=== PATIENT | female | born 1955 | race Caucasian/White ===

== ENCOUNTER 2018-06-13 20:19 | Inpatient (IN) | payer MEDICARE, MEDICAID, SELFPAY ==
[2018-06-13] VITALS (40 sets, daily range): BP systolic 128–165; BP diastolic 62–98; PULSE 89–109; RESP 4–38; TEMP 36.6–36.9; O2SAT 79–100
[2018-06-13] MEDS: Albuterol/Ipratropium 3 ML UPD VIAL 6 ML (20:25)
[2018-06-13] MEDS: methylPREDNISolone SUCC 125 MG VIAL (20:25)
--- NOTE | 2018-06-13 20:30 | DI.RAD_ITS ---
SYMPTOMS/DIAGNOSIS: SHORTNESS OF BREATH AP PORTABLE UPRIGHT CHEST: The lungs are free of gross infiltrate. No pleural effusion is seen. The heart is within normal limits in size. SUMMARY: No evidence of acute cardiopulmonary disease.
--- NOTE | 2018-06-13 20:33 | W.ED.GENAD ---
Discharge Plan Disposition Patient Disposition: [facility] INPATIENT Condition: Critical Discharge Details Chief Complaint: SOB Clinical Impression: Acute exacerbation of chronic obstructive pulmonary disease (COPD) Reason For Visit: COPD Admit Date/Time: 06/13/18 22:09 Admit Provider: Sunny Ferrer Attending Provider: Sunny Ferrer Primary Care Provider: Alphonso Murphy ED Provider: Devin Garland Discharge Data Discharge Date/Time-TO BE ENTERED AT DEPARTURE: 06/13/18 23:30 Medical Decision Making 20:30 --patient arrives in critical condition. Patient seen immediately on arrival. 61-year-old female with history of COPD here with respiratory distress. Hypoxic. Wheezing and decreased breath sounds bilaterally. ECG reviewed and interpreted by me: Sinus tachycardia 101 bpm, normal axis, no STEMI, significant artifact. Nondiagnostic. Plan is to continue DuoNeb treatment. Will initiate BiPAP. Respiratory therapy consulted. cxr to assess for PNA. 9:00 -- portable cxr reviewed and interpreted by me: no pneumothorax Patient reassessed and improved on bipap. RT at bedside administering continuous neb treatments with albuterol. 9:24 -- Labs reviewed. Normal trop and normal bnp. Patient reassessed and much improved - still requiring bipap. Nebs discontinued. Spoke with Dr. Ferrer who will admit to ICU. HPI General Mode of arrival: wheelchair. Date/Time Provider Initiated Documentation: 06/13/18 20:30. Information obtained by: patient and family. HPI Narrative: 63-year-old female with history of COPD, morbid obesity, ?pulmonary embolism (patient denies but is listed in problem list - she is not on anticoagulation), here with severe respiratory distress. History and review of systems Limited secondary to respiratory distress. Patient's boyfriend notes that exacerbation started early this morning and has worsened today despite neb treatments at home. Patient denies chest pain. Related Data Home Medications Medication Instructions Recorded Confirmed ascorbic acid (vitamin C) 1,000 mg PO DAILY 11/25/12 06/13/18 inhalational spacing device #1 inhaler 12/21/13 06/13/18 [Aerochamber Mini] Bipap 5 l IN DIRECTED 07/23/14 06/13/18 Oxygen 2 l INTRANASAL DIRECTED 12/24/14 06/13/18 aspirin 325 mg PO DAILY #0 tab-cap 06/22/15 06/13/18 guaifenesin [Mucinex] 1 - 2 tab PO Q12H PRN #30 tab-cap 06/26/15 06/13/18 clotrimazole 45 gm TOPICAL BID prn #45 gm 03/02/17 06/13/18 nystatin (bulk) 1 applic TOPICAL BID PRN #60 gm 03/02/17 06/13/18 albuterol sulfate [ProAir HFA] 1 - 2 puff INHALATION Q6H PRN #1 12/28/17 06/13/18 inhaler bupropion HCl (smoking deter) 150 mg PO QAM #30 tab-cap 12/28/17 06/13/18 citalopram [Celexa] 20 mg PO DAILY #30 tab-cap 12/28/17 06/13/18 fluticasone [Flonase Allergy 1 spray NS DAILY #1 canister 12/28/17 06/13/18 Relief] furosemide [Lasix] 80 mg PO QAM #180 tab-cap 12/28/17 06/13/18 gabapentin 2 cap PO BID #60 tab-cap 12/28/17 06/13/18 magnesium chloride [Mag 64] 64 mg PO DAILY #30 tab-cap 12/28/17 06/13/18 potassium chloride 2 tab-cap PO BID #180 tab-cap 12/28/17 06/13/18 silver sulfadiazine 1 applic TOPICAL BID PRN #60 gm 12/28/17 06/13/18 triamcinolone acetonide 1 appful TOPICAL BID PRN #30 gm 12/28/17 06/13/18 levofloxacin [Levaquin] 500 mg PO DAILY #3 tab 06/19/18 prednisone 40 mg PO BID #60 tab 06/19/18 ipratropium-albuterol 0.5 mg-3 3 ml IH QID #180 ml MDD 4 nebs 06/20/18 mg(2.5 mg base)/3 mL nebulization soln Previous Rx's Medication Instructions Recorded aspirin 325 mg PO DAILY #0 tab-cap 06/22/15 albuterol sulfate [ProAir HFA] 1 - 2 puff INHALATION Q6H PRN #1 12/28/17 inhaler bupropion HCl (smoking deter) 150 mg PO QAM #30 tab-cap 05/16/18 citalopram [Celexa] 20 mg PO DAILY #30 tab-cap 12/28/17 fluticasone [Flonase Allergy 1 spray NS DAILY #1 canister 12/28/17 Relief] furosemide [Lasix] 80 mg PO QAM #180 tab-cap 12/28/17 gabapentin 2 cap PO BID #60 tab-cap 12/28/17 magnesium chloride [Mag 64] 64 mg PO DAILY #30 tab-cap 12/28/17 potassium chloride 2 tab-cap PO BID #180 tab-cap 12/28/17 levofloxacin [Levaquin] 500 mg PO DAILY #3 tab 06/19/18 prednisone 40 mg PO BID #60 tab 06/19/18 ipratropium-albuterol 0.5 mg-3 3 ml IH QID #180 ml MDD 4 nebs 06/20/18 mg(2.5 mg base)/3 mL nebulization soln Allergies Allergy/AdvReac Type Severity Reaction Status Date / Time hydrocodone Allergy Severe ITCHING Unverified 06/13/18 20:36 morphine Allergy Mild PRURITIS Unverified 06/13/18 20:36 oxycodone Allergy Mild ITCHING Unverified 06/13/18 20:36 General Stated Complaint: SOB REUBEN: 1 Review of Systems Review of Systems ROS limited 2/2 acuity of condition and resp distress Constitutional Reports headache(s) ENT Reports headache(s) Cardiovascular Reports dyspnea Respiratory Reports dyspnea and Reports wheezing Musculoskeletal Denies numbness Neurologic Reports headache(s) and Denies numbness Allergic/Immunologic Reports wheezing PFSH Family History Mother Diabetes Personal history of malignant neoplasm Father Personal history of malignant neoplasm Grandfather No problems noted. Grandfather No problems noted. Grandmother No problems noted. Grandmother No problems noted. Medical History COPD (chronic obstructive pulmonary disease) (Chronic) Social History Smoking/Tobacco Use Status: Former Tobacco Use Surgical History Fasciotomy, Foot (~1996) Replacement of total knee joint Exam Const General: cooperative and in distress respiratory Orientation: alert and awake HENNV Head: normocephalic and atraumatic Mouth: moist mucous membranes Eyes Conjunctivae: normal conjunctivae Sclera: normal sclerae EOM: EOM intact bilaterally Neck Neck: trachea midline and supple Resp Auscultation: diminished lung sounds bilaterally, no rales, no rhonchi and wheezes Cardio Jugular venous pressure: no JVD Rate: tachycardic Rhythm: regular rhythm GI Palpation: soft, not firm, no guarding, no masses, not rigid and nontender Skin General skin exam: no rashes or lesions noted Neuro General: alert, awake, oriented x3 and tone normal Extrem General: no calf tenderness bilaterally and edema Psych Appearance: grossly normal Mental Status: mental status grossly normal Speech and Movement: speech and movement normal Course Vital Signs Temperature 36.6 C 06/13/18 20:23 Pulse 105 H 06/13/18 20:23 Respiratory Rate 38 H 06/13/18 20:23 Blood Pressure 165/78 H 06/13/18 20:23 Pulse Oximetry 83 L 06/13/18 20:23 Temperature 36.6 C 06/13/18 20:23 Pulse 105 H 06/13/18 20:23 Respiratory Rate 38 H 06/13/18 20:23 Blood Pressure 165/78 H 06/13/18 20:23 Pulse Oximetry 83 L 06/13/18 20:23 Oxygen Delivery Method Nasal Cannula 06/13/18 20:23 Oxygen Flow Rate 2 06/13/18 20:23 Comment 06/13/18 20:23 Critical Care Time Critical Care Time: Yes Total Critical Care Time: 40 Attestation: I spent greater than 40 min addressing this patient's immediate life threats.
[2018-06-13 20:41] LABS: BE (Venous) 6.5 mmol/L (-3-3); HCO3 (Venous) 32 mmol/L (22-28); O2 Sat (Venous) 50 % (70-80); TCO2 (Venous) 29 mmol/L (22-29); pCO2 (Venous) 58 mm/Hg (34-47); pH (Venous) 7.35 (7.32-7.43); pO2 (Venous) 26 mm/Hg (28-44)
[2018-06-13 20:43] LABS: Abs Immature Grans 0.01 k/cumm (0.0-0.09); Absolute Basophil Count 0.02 k/cumm (0.0-0.2); Absolute Eosinophil Count 0.29 k/cumm (0.0-0.7); Absolute Lymphocyte Count 2.09 k/cumm (1.2-3.4); Absolute Monocyte Count 0.94 k/cumm (0.11-0.7); Absolute Neutrophil Count 6.66 k/cumm (1.2-6.7); Basophils % 0.2; Eosinophils % 2.9; HCT 43.6 % (36.0-46.0); HGB 14.5 g/dL (12.0-15.5); Immature Grans % 0.1; Lymphocytes % 20.9; Mean Corp. HGB Concentration 33.3 g/dL (32.0-36.0); Mean Corpuscular Hemoglobin 29.2 pg (27.0-33.0); Mean Corpuscular Volume 87.7 fL (80-95); Mean Platelet Volume 10.8 fL (8.0-11.0); Monocytes % 9.4; Neutrophils % 66.5; Platelet Count 277 x1000/uL (130-400); RBC 4.97 m/cumm (4.00-5.20); RBC Distribution Width 14.3 % (11.7-14.6); White Blood Cell Count 10.01 k/cumm (4.4-10.8)
[2018-06-13] MEDS: Albuterol 2.5 MG/3 ML INH SOLN VIAL 5 MG ×3 (20:50→21:08)
[2018-06-13 21:01] LABS: ALT 29 U/L (12-78); AST 22 U/L (15-37); Alkaline Phosphatase 93 U/L (46-116); Anion Gap 5.7 mmol/L (3-11); BUN 13 mg/dL (7-18); Bilirubin, Total 1.2 mg/dL (0.2-1.0); CO2 33.3 mmol/L (21.0-32.0); Calcium 8.8 mg/dL (8.5-10.1); Chloride 101 mmol/L (98-107); Glucose 107 mg/dL (70-100); Potassium 3.6 mmol/L (3.5-5.1); Sodium 140 mmol/L (136-145); Total Protein 7.6 g/dL (6.4-8.2)
--- NOTE | 2018-06-13 21:01 | DI.VRAD_ITS ---
EXAM: XR Chest, 1 View EXAM DATE/TIME: 06/13/2018 8:33 PM CLINICAL HISTORY: 63 years old, female; Signs and symptoms; Other: Shortness of breath TECHNIQUE: XR of the chest, 1 view. COMPARISON: SC PORTABLE CHEST ONE VIEW 01/15/2017 9:23 PM FINDINGS: Lungs: Mild lung hypoinflation. Strandy densities in the lung bases appear similar to prior and likely represent mild scarring/atelectasis. No consolidation. Pleural space: Unremarkable. No pleural effusion. No pneumothorax. Heart/Mediastinum: Unremarkable. No cardiomegaly. Bones/joints: Chronic osseous changes. IMPRESSION: No acute cardiopulmonary findings. Dictated and Authenticated by: Robbie Martinez MD. Ordering:LYNN MASSEY MD
[2018-06-13 21:11] LABS: NT-proBNP 73 pg/mL
[2018-06-13 21:17] LABS: Troponin I < 0.02 ng/mL (0.00-0.06)
--- NOTE | 2018-06-13 21:59 | W.PM.HP.N ---
Date of service: 06/13/18 Time of Service: 22:00 Assessment and Plan (1) COPD (chronic obstructive pulmonary disease): Current visit: No Status: Acute COPD exacerbation. Will continue steroids, updrafts and BiPAP. Not clear whether there is an infectious come, certainly does not look like any pneumonia, but will add oral antibiotics as well. Will otherwise continue usual medications as is. I did review advanced directives with the patient and at this point she wishes to be full code. History of Present Illness Chief Complaint: Shortness of breath Narrative: Patient is a 63-year-old female with COPD and morbid obesity. She comes in with several weeks of cough and 1-2 days of increasing shortness of breath. In the emergency room she was in obvious respiratory distress she was given DuoNeb's, steroids and placed on BiPAP with substantial improvement. She is admitted for further evaluation and management. Past medical history COPD, on home BiPAP, obstructive sleep apnea, morbid obesity. Allergies: To hydrocodone, morphine and oxycodone. Medications as needed albuterol aspirin 325 daily, BiPAP, will Wellbutrin 150 daily, Celexa 20 daily, Flonase, Lasix 80 daily Neurontin unspecified dose Combivent as needed magnesium potassium unspecified dose. Rectal exam afebrile, blood pressure 153/73, pulse 103 respirations 20 O2 sat 97%. HEENT shows cushingoid facies. Neck supple lungs diffuse wheezing. Heart is distant but regular rate and rhythm. Abdomen soft nontender. Pelvic and rectal exams deferred per extremities without pedal edema. Neurological patient is alert and oriented and moves all 4 extremities equally. Laboratory: White count is 10.0 hematocrit 43 platelet 277. Sodium 140 potassium 3.6 chloride 101 bicarb 33 BUN 13 creatinine 0.7 venous blood gas shows pH 7.35 and CO2 58. Chest x-ray shows poor inspiration without film shows no acute changes Review of Systems Review of Systems All systems reviewed & are unremarkable except as noted in HPI and below PFSH Family History Mother Diabetes Personal history of malignant neoplasm Father Personal history of malignant neoplasm Grandfather No problems noted. Grandfather No problems noted. Grandmother No problems noted. Grandmother No problems noted. Medical History COPD (chronic obstructive pulmonary disease) (Chronic) Social History Smoking/Tobacco Use Status: Former Tobacco Use Surgical History Fasciotomy, Foot (~1996) Replacement of total knee joint Meds Home Medications Medication Instructions Recorded Confirmed Type ascorbic acid (vitamin C) 1,000 mg PO DAILY 11/25/12 06/13/18 History inhalational spacing device #1 inhaler 12/21/13 06/13/18 History [Aerochamber Mini] Bipap 5 l IN DIRECTED 07/23/14 06/13/18 History Oxygen 2 l INTRANASAL DIRECTED 12/24/14 06/13/18 History aspirin 325 mg PO DAILY #0 tab-cap 06/22/15 06/13/18 Rx guaifenesin [Mucinex] 1 - 2 tab PO Q12H PRN #30 tab-cap 06/26/15 06/13/18 History ipratropium-albuterol 1 amp INHALATION Q6H PRN #100 amp 12/01/16 06/13/18 History clotrimazole 45 gm TOPICAL BID prn #45 gm 03/02/17 06/13/18 History nystatin (bulk) 1 applic TOPICAL BID PRN #60 gm 03/02/17 06/13/18 History albuterol sulfate [Proair Hfa] 1 - 2 puff INHALATION Q6H PRN #1 12/28/17 06/13/18 Rx inhaler bupropion HCl (smoking deter) 150 mg PO QAM #30 tab-cap 12/28/17 06/13/18 Rx citalopram [Celexa] 20 mg PO DAILY #30 tab-cap 12/28/17 06/13/18 Rx fluticasone [Flonase Allergy 1 spray NS DAILY #1 canister 12/28/17 06/13/18 Rx Relief] furosemide [Lasix] 80 mg PO QAM #180 tab-cap 12/28/17 06/13/18 Rx gabapentin 2 cap PO BID #60 tab-cap 12/28/17 06/13/18 Rx magnesium chloride [Slow-Mag] 64 mg PO DAILY #30 tab-cap 12/28/17 06/13/18 Rx potassium chloride 2 tab-cap PO BID #180 tab-cap 12/28/17 06/13/18 Rx prednisone 40 mg PO DAILY #10 tab-cap 12/28/17 06/13/18 Rx silver sulfadiazine 1 applic TOPICAL BID PRN #60 gm 12/28/17 06/13/18 History triamcinolone acetonide 1 appful TOPICAL BID PRN #30 gm 12/28/17 06/13/18 History Allergies Allergy/AdvReac Type Severity Reaction Status Date / Time hydrocodone Allergy Severe ITCHING Unverified 06/13/18 20:36 morphine Allergy Mild PRURITIS Unverified 06/13/18 20:36 oxycodone Allergy Mild ITCHING Unverified 06/13/18 20:36 Exam Narrative Exam Narrative: per HPI Results Labs : 06/13/18 20:30 06/13/18 20:30 Laboratory Results - last 24 hr 06/13/18 06/13/18 06/13/18 20:30 20:30 20:30 WBC RBC Hgb Hct MCV MCH MCHC RDW Plt Count MPV Immature Gran % Neutrophils % Lymphocytes % Monocytes % Eosinophils % Basophils % Absolute Neutrophils Absolute Lymphocytes Absolute Monocytes Absolute Eosinophils Absolute Basophils VBG pH 7.35 VBG pCO2 58 H VBG pO2 26 L VBG HCO3 32 H VBG Total CO2 29 VBG O2 Saturation 50 L VBG Base Excess 6.5 H Sodium 140 Potassium 3.6 Chloride 101 Carbon Dioxide 33.3 H Anion Gap 5.7 BUN 13 Creatinine 0.70 Estimated GFR/1.73 m2 >= 60.00 Glucose 107 H Calcium 8.8 Total Bilirubin 1.2 H AST 22 ALT 29 Alkaline Phosphatase 93 Troponin I < 0.02 NT-Pro-B Natriuret Pep 73 Total Protein 7.6 Albumin 3.0 L 06/13/18 20:30 WBC 10.01 RBC 4.97 Hgb 14.5 Hct 43.6 MCV 87.7 MCH 29.2 MCHC 33.3 RDW 14.3 Plt Count 277 MPV 10.8 Immature Gran % 0.1 Neutrophils % 66.5 Lymphocytes % 20.9 Monocytes % 9.4 Eosinophils % 2.9 Basophils % 0.2 Absolute Neutrophils 6.66 Absolute Lymphocytes 2.09 Absolute Monocytes 0.94 H Absolute Eosinophils 0.29 Absolute Basophils 0.02 VBG pH VBG pCO2 VBG pO2 VBG HCO3 VBG Total CO2 VBG O2 Saturation VBG Base Excess Sodium Potassium Chloride Carbon Dioxide Anion Gap BUN Creatinine Estimated GFR/1.73 m2 Glucose Calcium Total Bilirubin AST ALT Alkaline Phosphatase Troponin I NT-Pro-B Natriuret Pep Total Protein Albumin Last Vital Signs Temp 36.6 C 06/13/18 20:23 Pulse 103 H 06/13/18 21:17 Resp 20 06/13/18 21:17 BP 151/73 H 06/13/18 20:31 Pulse Ox 97 06/13/18 21:17
[2018-06-14] VITALS (45 sets, daily range): BP systolic 107–142; BP diastolic 47–75; PULSE 75–99; RESP 8–26; TEMP 36.4–36.9; O2SAT 91–97
[2018-06-14] MEDS: Albuterol/Ipratropium 3 ML UPD VIAL UPD ×6 (00:48→22:28)
[2018-06-14] MEDS: methylPREDNISolone SUCC 40 MG VIAL IVP ×3 (04:54→19:13)
[2018-06-14] MEDS: Normal Saline Flush 10 ML SYR (05:20)
--- NOTE | 2018-06-14 08:04 | PDOC.CMIN ---
- If Service Date Differs Date of service: 06/14/18 Time of Service: 08:04 Care Management Initial Assess REASON FOR HOSPITALIZATION:: COPD. PAST MEDICAL HISTORY/PAST SURGICAL HISTORY:: COPD, depressive disorder, insomnia with sleep apnea, chronic headaches, recurrent UTI, bronchospasm, obesity, hypokalemia, PE, right ventricular dysfunction. Surgical hx: fasciotomy left foot, replacement bilateral knee joints. PREVIOUS FUNCTIONAL STATUS/SOCIAL/FAMILY SUPPORTS:: Radha resides in [facility] with her disabled son, Lucas, and off and on with her boyfriend of 30 years, Galo. 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 Radha has home O2 and a BiPAP through [employer] and has an electric wheelchair. She is independent with her ADLs and utilizes [facility] for transportation needs. CURRENT FUNCTIONAL STATUS:: Radha is sitting on her bed in the ICU when CM visits this afternoon. CM has attempted to visit three times over the morning and Radha was asleep each time. She is engaged in conversation, is talkative, and makes good eye contact. RT Lena worked with Radha this morning regarding her need for a new BiPAP. Per [employer], Radha can not get a new one as she has not seen a supervisor show operations in 5 years. Radha has an appointment scheduled for 07/20/18 at 9:15am at the [facility] with Myrna Coronado NP. Patient is aware. Radha reports that she uses an electric wheelchair at home and that it is broken. According to patient, Reji from [employer]' is helping her obtain a new motor. CM discussed resources and support in the community and Radha stated that she did not want referrals sent on her behalf. Radha continues to receive IV steroids and oral antibiotics. ADVANCE DIRECTIVES:: On file at [facility]. Has patient been provided with information about the portal?: Yes Did the patient sign up for the portal?: No CODE STATUS:: Full Code INSURANCE COVERAGE / FINANCIAL ISSUES:: Medicaid, Medicare. CURRENT HOME/COMMUNITY SERVICES/EQUIPMENT:: Patient has an electric w/c, home oxygen and BIPAP through [employer], commode, hospital bed, walker, updraft machine, ramp. She does not have any community or home services and does not want referrals sent on her behalf. PRIMARY CARE PHYSICIAN:: Alphonso uMrphy. POTENTIAL DISCHARGE NEEDS:: Follow up appointment with PCP. PATIENT/FAMILY EDUCATION NEEDS:: Discharge education, any limitations, and follow up plan of care. ANTICIPATED BARRIERS TO DISCHARGE:: No anticipated barriers to discharge. TRANSPORTATION:: Radha will transport via [facility] at discharge. PLAN:: Radha will transport home when medically ready per MD. Anticipate patient will discharge with no services and follow up with her PCP. CM will continue to offer support to patient and care team regarding discharge planning and disposition.
--- NOTE | 2018-06-14 08:15 | INITIAL_ITS ---
- If Service Date Differs Date of service: 06/14/18 Time of Service: 08:04 Care Management Initial Assess REASON FOR HOSPITALIZATION:: COPD. PAST MEDICAL HISTORY/PAST SURGICAL HISTORY:: COPD, depressive disorder, insomnia with sleep apnea, chronic headaches, recurrent UTI, bronchospasm, obesity, hypokalemia, PE, right ventricular dysfunction. Surgical hx: fasciotomy left foot, replacement bilateral knee joints. PREVIOUS FUNCTIONAL STATUS/SOCIAL/FAMILY SUPPORTS:: Radha resides in [facility] with her disabled son, Lucas, and off and on with her boyfriend of 30 years, Galo. 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 Radha has home O2 and a BiPAP through [employer] and has an electric wheelchair. She is independent with her ADLs and utilizes [facility] for transportation needs. CURRENT FUNCTIONAL STATUS:: Radha is sitting on her bed in the ICU when CM visits this afternoon. CM has attempted to visit three times over the morning and Radha was asleep each time. She is engaged in conversation, is talkative, and makes good eye contact. RT Lena worked with Radha this morning regarding her need for a new BiPAP. Per [employer], Radha can not get a new one as she has not seen a underwriting clerk in 5 years. Radha has an appointment scheduled for 07/20/18 at 9:15am at the Sleep Lab with Myrna Coronado NP. Patient is aware. Radha reports that she uses an electric wheelchair at home and that it is broken. According to patient, Reji from '[employer]' is helping her obtain a new motor. CM discussed resources and support in the community and Radha stated that she did not want referrals sent on her behalf. Radha continues to receive IV steroids and oral antibiotics. ADVANCE DIRECTIVES:: On file at [facility]. Has patient been provided with information about the portal?: Yes Did the patient sign up for the portal?: No CODE STATUS:: Full Code INSURANCE COVERAGE / FINANCIAL ISSUES:: Medicaid, Medicare. CURRENT HOME/COMMUNITY SERVICES/EQUIPMENT:: Patient has an electric w/c, home oxygen and BIPAP through [employer], commode, hospital bed, walker , updraft machine, ramp. She does not have any community or home services and does not want referrals sent on her behalf. PRIMARY CARE PHYSICIAN:: Alphonso Murphy. POTENTIAL DISCHARGE NEEDS:: Follow up appointment with PCP. PATIENT/FAMILY EDUCATION NEEDS:: Discharge education, any limitations, and follow up plan of care. ANTICIPATED BARRIERS TO DISCHARGE:: No anticipated barriers to discharge. TRANSPORTATION:: Radha will transport via [facility] at discharge. PLAN:: Radha will transport home when medically ready per MD. Anticipate patient will discharge with no services and follow up with her PCP. CM will continue to offer support to patient and care team regarding discharge planning and disposition.
[2018-06-14] MEDS: Fluticasone NASAL SPRAY 16 GM BTL NS (08:30)
[2018-06-14] MEDS: Gabapentin 100 MG CAP 200 MG PO ×2 (08:42→19:14)
[2018-06-14] MEDS: Aspirin 325 MG TAB PO (08:42)
[2018-06-14] MEDS: Magnesium Chloride 64 MG TABCR PO (08:42)
[2018-06-14] MEDS: Citalopram 20 MG TAB PO (08:43)
[2018-06-14] MEDS: Cefuroxime 500 MG TAB PO ×2 (08:43→19:14)
[2018-06-14] MEDS: buPROPion-CR 150 MG TABCR PO (08:43)
[2018-06-14] MEDS: Furosemide 40 MG TAB 80 MG PO (08:43)
[2018-06-14] MEDS: Potassium Chloride 10 MEQ CAPCR 20 MEQ PO ×2 (08:43→19:13)
--- NOTE | 2018-06-14 10:42 | PHARADMIT ---
Addendum entered by Mariah Mills 06/18/18 13:17: Pharmacy Note Subjective plan was for possible late discharge Tuesday, but.....? Objective VS ok, afebrile, Sats 94% on 2L oxygen,no labs today QTC on 06/13/18 was 505 Assessment Prednisone increased to BID Pt placed on Tele Plan MD wanted to see ambulating pulse ox before considering discharge-not sure results but oral Cefuroxime changed to IV Levaquin, monitor QTc interval (pt on Citalopram) Original Note: Addendum entered by Rajat Forde III 06/16/18 16:00: Pharmacy Note Subjective Patient continues to improve Objective VS-OK Lytes,SCr, Plts-OK WBC-10.51 H&H-12.4/37.7 FSBS-1417 Last 06/14 Assessment PO Cefuroxime continues. Solu-medrol IV to daily. Plan MD anticipates discharge soon. Original Note: Addendum entered by Rajat Forde III 06/15/18 16:05: Correction Ceftin for pneumonia not strep-C strep Original Note: Addendum entered by Rajat Forde III 06/15/18 15:29: Pharmacy Note Subjective MD reports patient is stable and doing well with Home BiPAP CO2 down 29.6 Objective VS-OK WBC-13.34 Lytes, SCr,H&H,Plts-OK FSBS-135 06/14 Wgt-190.5 Assessment Solu-medrol tapering IV fluids dc'd. On Ceftin PO for group-C strep. Lovenox ordered for DVT proph but refused. MD informed by nurse. Plan Transferred to [facility] status Original Note: Admission Pharmacy Clinical Review COPD Code Status Full Code Current Weight 193.3 kg Renally Cleared and Narrow Therapeutic Index Meds CrCl~>40ML/MIN...height not entered, see various different heights from last admissions Lovenox QTc Value / Action Taken BP Control, Fever BP 109/56 Afebrile Electrolytes reviewed K+ 3.6 (Potassium 20meq po BID) DVT Prophylaxis Lovenox 40mg, ASA 325mg Opiate Usage / Scheduled Bowel Regimen Ordered Plt/SCr for Heparin / Enoxaparin ...morning labs pending Plt 277 SCr 0.7 INR for Warfarin H/H stable, WBC/Bands H/H 14.5/43.6 WBC 10.01 Antibiotic appropriateness Cefuroxime orally for ? Pneumonia, chest xray negative....absorption delayed significantly when given w/H2 blockers or PPI's, therefore timed Protonix for daily @ noon Cultures and Sensitivities n/a Surgical ABX d/c within 24 hr DM control / Insulin Dosing BG 107 (IV Solumedrol) Heart Failure (Check EF%) (TONE's, B-Block, Diuretics) Lasix orally IV to PO Switch Home Meds Reviewed Triamcinolone cream, RN finding out where it's applied, then will verify and send Home Meds Not Ordered Ascorbic Acid, Guaifenesin, SSD cream Comments Large pannus, may go through alot of Clotrimazole cream and Nystatin powder Frequent admissions, well known to staff, electric scooter broken, unable to get around without it, CM aware of home situation
[2018-06-14 11:22] LABS: Abs Immature Grans 0.01 k/cumm (0.0-0.09); Absolute Lymphocyte Count 1.22 k/cumm (1.2-3.4); Absolute Neutrophil Count 6.35 k/cumm (1.2-6.7); HCT 39.9 % (36.0-46.0); HGB 13.4 g/dL (12.0-15.5); Immature Grans % 0.1; Lymphocytes % 15.9; Mean Corp. HGB Concentration 33.6 g/dL (32.0-36.0); Mean Corpuscular Hemoglobin 29.3 pg (27.0-33.0); Mean Corpuscular Volume 87.3 fL (80-95); Mean Platelet Volume 10.8 fL (8.0-11.0); Monocytes % 1.3; Neutrophils % 82.7; Platelet Count 256 x1000/uL (130-400); RBC 4.57 m/cumm (4.00-5.20); RBC Distribution Width 14.1 % (11.7-14.6); White Blood Cell Count 7.68 k/cumm (4.4-10.8)
[2018-06-14 11:33] LABS: Anion Gap 8.5 mmol/L (3-11); BUN 17 mg/dL (7-18); CO2 28.5 mmol/L (21.0-32.0); CREATININE 0.62 mg/dL (0.55-1.02); Calcium 8.8 mg/dL (8.5-10.1); Chloride 101 mmol/L (98-107); Glucose 168 mg/dL (70-100); Potassium 3.6 mmol/L (3.5-5.1); Sodium 138 mmol/L (136-145)
[2018-06-14] MEDS: Normal Saline Flush 10 ML SYR 20 ML (12:01)
[2018-06-14] MEDS: Pantoprazole 40 MG VIAL IVP (12:01)
--- NOTE | 2018-06-14 13:15 | PGE_ITS ---
Assessment and Plan (1) COPD exacerbation: Current visit: No Status: Acute Appears improved. Continue IV Steroids, oral antibiotics with Cefuroxime # 2, nebs, and prn BIPAP. CXR negative for infiltrate. (2) Obstructive sleep apnea syndrome: Current visit: Yes Status: Chronic Noted. Continue BIPAP nightly and as needed. (3) Right ventricular dysfunction: Current visit: Yes Status: Chronic Evidence of decreased RV Function and Pulmonary HTN by last ECHO. (4) Morbid obesity with BMI of 70 and over, adult: Current visit: Yes Status: Chronic Noted. Patient utilizes a scooter that is currently not operable. Case Management working on obtaining funds for new battery. (5) DVT prophylaxis: Current visit: Yes Status: Acute SC Heparin. PPI for GI Prophylaxis. (6) Advance directive on file: Current visit: Yes Status: Acute Full Code. Subjective Interval history since last seen: 63-year-old female with a history COPD and morbid obesity, admitted from [facility] 06/13 with a diagnosis of COPD Exacerbation. Ms. Masetrson reported several weeks of cough with a 2 day history of increasing dyspnea. In the emergency room she was noted to be in respiratory distress and given DuoNeb's, steroids and placed on BiPAP therapy with substantial improvement. IV steroids, nebs, and oral antibiotics were continued through the night and this morning she continues to report improvement from a breathing standpoint. No overnight events reported. She remains afebrile. Exam Narrative Exam Narrative: General: Patient appears comfortable, on BIPAP, AAOX3, NAD. Morbidly Obese. Neck: Supple CV: Regular, nontachycardic, S1S2, No rubs, murmurs, or gallops. Pulmonary: Good air entry with mild but diffuse wheezing, no crackles. Abdomen: + Bowel Sounds, soft, nontender, nondistended. Obese Contour. Vascular: Nonpitting b/l LE edema Psych: Normal mood and affect. Objective Objective Clinical Data: Abnormal lab results 06/13/18 06/13/18 06/13/18 Range/Units 20:30 20:30 20: Absolute Monocytes 0.94 H (0.11-0.7) k/cumm VBG pCO2 58 H (34-47) mm/Hg VBG pO2 26 L (28-44) mm/Hg VBG HCO3 32 H (22-28) mmol/L VBG O2 Saturation 50 L (70-80) % VBG Base Excess 6.5 H (-3-3) mmol/L Carbon Dioxide 33.3 H (21.0-32.0) mmol/L Glucose 107 H (70-100) mg/dL Total Bilirubin 1.2 H (0.2-1.0) mg/dL Albumin 3.0 L (3.4-5.0) g/dL 06/14/18 06/14/18 Range/Units 11:05 11:05 Absolute Monocytes 0.10 L (0.11-0.7) k/cumm VBG pCO2 (34-47) mm/Hg VBG pO2 (28-44) mm/Hg VBG HCO3 (22-28) mmol/L VBG O2 Saturation (70-80) % VBG Base Excess (-3-3) mmol/L Carbon Dioxide (21.0-32.0) mmol/L Glucose 168 H (70-100) mg/dL Total Bilirubin (0.2-1.0) mg/dL Albumin (3.4-5.0) g/dL Vital Signs Temperature 36.8 C 06/14/18 08:16 Temperature Source Temporal Artery Scan 06/14/18 08:16 Pulse 79 06/14/18 08:16 Pulse 79 06/14/18 08:09 Respiratory Rate 17 06/14/18 08:16 Respiratory Effort 06/14/18 04:00 Respiratory Depth Normal 06/14/18 04:00 Respiratory Pattern Normal 06/14/18 04:00 Blood Pressure 109/56 L 06/14/18 08:16 Blood Pressure Mean 68 06/14/18 08:09 Pulse Oximetry 91 L 06/14/18 08:16 Oxygen Delivery Method Cpap 06/14/18 08:16 Oxygen Flow Rate 5 06/13/18 23:46 Fraction of Inspired Oxygen (FIO2) 35 06/13/18 23:45 Pain Level 0 06/14/18 04:00 Comment 06/13/18 20:23 Intake & Output 06/13/18 06/14/18 06/14/18 23:59 11:59 23:59 Intake Total Output Total 300 / 300 Balance -290 / -290 Weight 193.3 kg Intake: IV Output: Urine 300 / 300 Other: Urine Color Dark Anay Urine Appearance Sediment Urine Odor Strong Voiding Methods Bedside Commode Laboratory Results WBC 7.68 k/cumm (4.4-10.8) 06/14/18 11:05 RBC 4.57 m/cumm (4.00-5.20) 06/14/18 11:05 Hgb 13.4 g/dL (12.0-15.5) 06/14/18 11:05 Hct 39.9 % (36.0-46.0) 06/14/18 11:05 MCV 87.3 fL (80-95) 06/14/18 11:05 MCH 29.3 pg (27.0-33.0) 06/14/18 11:05 MCHC 33.6 g/dL (32.0-36.0) 06/14/18 11:05 RDW 14.1 % (11.7-14.6) 06/14/18 11:05 Plt Count 256 x1000/uL (130-400) 06/14/18 11:05 MPV 10.8 fL (8.0-11.0) 06/14/18 11:05 Immature Gran % 0.1 06/14/18 11:05 Neutrophils % 82.7 06/14/18 11:05 Lymphocytes % 15.9 06/14/18 11:05 Monocytes % 1.3 06/14/18 11:05 Eosinophils % 0.0 06/14/18 11:05 Basophils % 0.0 06/14/18 11:05 Absolute Neutrophils 6.35 k/cumm (1.2-6.7) 06/14/18 11:05 Absolute Lymphocytes 1.22 k/cumm (1.2-3.4) 06/14/18 11:05 Absolute Monocytes 0.10 k/cumm (0.11-0.7) L 06/14/18 11:05 Absolute Eosinophils 0.00 k/cumm (0.0-0.7) 06/14/18 11:05 Absolute Basophils 0.00 k/cumm (0.0-0.2) 06/14/18 11:05 VBG pH 7.35 (7.32-7.43) 06/13/18 20:30 VBG pCO2 58 mm/Hg (34-47) H 06/13/18 20:30 VBG pO2 26 mm/Hg (28-44) L 06/13/18 20:30 VBG HCO3 32 mmol/L (22-28) H 06/13/18 20:30 VBG Total CO2 29 mmol/L (22-29) 06/13/18 20:30 VBG O2 Saturation 50 % (70-80) L 06/13/18 20:30 VBG Base Excess 6.5 mmol/L (-3-3) H 06/13/18 20:30 Sodium 138 mmol/L (136-145) 06/14/18 11:05 Potassium 3.6 mmol/L (3.5-5.1) 06/14/18 11:05 Chloride 101 mmol/L (98-107) 06/14/18 11:05 Carbon Dioxide 28.5 mmol/L (21.0-32.0) 06/14/18 11:05 Anion Gap 8.5 mmol/L (3-11) 06/14/18 11:05 BUN 17 mg/dL (7-18) 06/14/18 11:05 Creatinine 0.62 mg/dL (0.55-1.02) 06/14/18 11:05 Estimated GFR/1.73 m2 >= 60.00 (mL/min/1.73m2) 06/14/18 11:05 Glucose 168 mg/dL (70-100) H 06/14/18 11:05 Calcium 8.8 mg/dL (8.5-10.1) 06/14/18 11:05 Total Bilirubin 1.2 mg/dL (0.2-1.0) H 06/13/18 20:30 AST 22 U/L (15-37) 06/13/18 20:30 ALT 29 U/L (12-78) 06/13/18 20:30 Alkaline Phosphatase 93 U/L (46-116) 06/13/18 20:30 Troponin I < 0.02 ng/mL (0.00-0.06) 06/13/18 20:30 NT-Pro-B Natriuret Pep 73 pg/mL (-299) 06/13/18 20:30 Total Protein 7.6 g/dL (6.4-8.2) 06/13/18 20:30 Albumin 3.0 g/dL (3.4-5.0) L 06/13/18 20:30
--- NOTE | 2018-06-14 14:12 | RESPIRATORY ---
06/14/18-Pt requested to speak to this RT in regards to signing up for the [employer].Pt was on her home BIPAP machine that she gets supplies through [facility]. The unit has had a lot of wear and tear. She has a missing dial and the screen on it makes the read out ineligible as it's scratched. I contacted Martine, RT at [facility] who states Pt does not have an RX for a new unit. I cotacted the Sleep Lab and spoke with Nancy. She was able to see that the Pt has bnot been seen since 2012. An appointment has been scheduled for Pt on 07/20/18 @ 9:15am with ART Hong. I made ARGENIS Rodriguez aware of this appt for Pt and she will inform Pt.
[2018-06-15] VITALS (19 sets, daily range): BP systolic 100–127; BP diastolic 33–69; PULSE 79–92; RESP 8–23; TEMP 36–37.3; O2SAT 92–98
[2018-06-15] MEDS: Albuterol/Ipratropium 3 ML UPD VIAL UPD ×5 (02:11→20:25)
[2018-06-15] MEDS: Acetaminophen 325 MG TAB 650 MG PO (02:32)
[2018-06-15] MEDS: methylPREDNISolone SUCC 40 MG VIAL IVP ×3 (04:22→23:13)
[2018-06-15 07:41] LABS: Abs Immature Grans 0.04 k/cumm (0.0-0.09); Absolute Lymphocyte Count 1.29 k/cumm (1.2-3.4); Absolute Neutrophil Count 11.55 k/cumm (1.2-6.7); HCT 41.6 % (36.0-46.0); HGB 13.7 g/dL (12.0-15.5); Immature Grans % 0.3; Lymphocytes % 9.7; Mean Corp. HGB Concentration 32.9 g/dL (32.0-36.0); Mean Corpuscular Volume 87.9 fL (80-95); Mean Platelet Volume 11.4 fL (8.0-11.0); Monocytes % 3.4; Neutrophils % 86.6; Platelet Count 295 x1000/uL (130-400); RBC 4.73 m/cumm (4.00-5.20); RBC Distribution Width 14.5 % (11.7-14.6); White Blood Cell Count 13.34 k/cumm (4.4-10.8)
[2018-06-15 07:42] LABS: Absolute Monocyte Count 0.45 k/cumm (0.11-0.7)
[2018-06-15 08:00] LABS: Anion Gap 7.4 mmol/L (3-11); BUN 19 mg/dL (7-18); CO2 29.6 mmol/L (21.0-32.0); CREATININE 0.68 mg/dL (0.55-1.02); Chloride 102 mmol/L (98-107); Glucose 135 mg/dL (70-100); Potassium 4.2 mmol/L (3.5-5.1); Sodium 139 mmol/L (136-145)
[2018-06-15] MEDS: Normal Saline 1,000 ML 50 ML IV (08:52)
[2018-06-15] MEDS: buPROPion-CR 150 MG TABCR PO (08:55)
[2018-06-15] MEDS: Furosemide 40 MG TAB 80 MG PO (08:55)
[2018-06-15] MEDS: Aspirin 325 MG TAB PO (08:55)
[2018-06-15] MEDS: Gabapentin 100 MG CAP 200 MG PO ×2 (08:55→20:26)
[2018-06-15] MEDS: Potassium Chloride 10 MEQ CAPCR 20 MEQ PO ×2 (08:55→20:26)
[2018-06-15] MEDS: Magnesium Chloride 64 MG TABCR PO (08:55)
[2018-06-15] MEDS: Cefuroxime 500 MG TAB PO ×2 (08:55→20:26)
[2018-06-15] MEDS: Citalopram 20 MG TAB PO (08:56)
[2018-06-15] MEDS: Albuterol 2.5 MG/3 ML INH SOLN VIAL UPD (09:13)
[2018-06-15] MEDS: Normal Saline Flush 10 ML SYR IVP ×2 (12:36→20:26)
[2018-06-15] MEDS: Pantoprazole 40 MG VIAL IVP (12:36)
--- NOTE | 2018-06-15 13:49 | PDOC.CMPRO ---
- If Service Date Differs Date of service: 06/15/18 Time of Service: 13:49 Care Management Progress Note S/O: CM attempted to visit with Radha four times today and at all times she has been sleeping. Radha transferred to MS status today however continues to be monitored and receive IV steroids. Radha continues to utilize her Bipap when sleeping and receives supplemental O2 via NC when awake. A: 63 year old female admitted for COPD exacerbation. P: Radha will discharge home when medically ready per MD. Anticipate patient will discharge with no services and follow up with her PCP. Radha will transport via [facility]. CM will continue to offer support to patient and care team regarding discharge planning and disposition.
--- NOTE | 2018-06-15 14:01 | W.PM.PROGNOT ---
Assessment and Plan (1) COPD exacerbation: Current visit: No Status: Acute Appears improved. Continue IV Steroids, oral antibiotics with Cefuroxime #3, nebs, and prn BIPAP. CXR negative for infiltrate. Patient now stable and no longer requiring ICU level of care - transfer to [facility]. (2) Obstructive sleep apnea syndrome: Current visit: Yes Status: Chronic Noted. Continue BIPAP nightly and as needed. Case Management working on obtaining updates BIPAP/parts for patient. (3) Right ventricular dysfunction: Current visit: Yes Status: Chronic Evidence of decreased RV Function and Pulmonary HTN by last ECHO. (4) Morbid obesity with BMI of 70 and over, adult: Current visit: Yes Status: Chronic Noted. Patient utilizes a scooter that is currently not operable. Case Management working on obtaining funds for new battery. (5) DVT prophylaxis: Current visit: Yes Status: Acute SC Heparin. PPI for GI Prophylaxis. (6) Advance directive on file: Current visit: Yes Status: Acute Full Code. Subjective Interval history since last seen: 63-year-old female with a history COPD and morbid obesity, admitted from [facility] 06/13 with a diagnosis of COPD Exacerbation. Ms. Masterson reported several weeks of cough with a 2 day history of increasing dyspnea. In the emergency room she was noted to be in respiratory distress and given DuoNeb's, steroids and placed on BiPAP therapy with substantial improvement. She remains on IV steroids, nebs, and oral antibiotics, and remains with significant improvement from a breathing standpoint. No overnight events reported. She remains afebrile. Exam Narrative Exam Narrative: General: Patient appears comfortable, sleeping but easily arousable, on BIPAP, NAD. Morbidly Obese. Neck: Supple CV: Regular, nontachycardic, S1S2, No rubs, murmurs, or gallops. Pulmonary: Good air entry with now minimal diffuse wheezing, improved. No crackles. Abdomen: + Bowel Sounds, soft, nontender, nondistended. Obese Contour. Vascular: Nonpitting b/l LE edema Psych: Normal mood and affect. Objective Objective Clinical Data: Abnormal lab results 06/15/18 06/15/18 Range/Units 06:47 06:47 WBC 13.34 H D (4.4-10.8) k/cumm MPV 11.4 H (8.0-11.0) fL Absolute Neutrophils 11.55 H (1.2-6.7) k/cumm BUN 19 H (7-18) mg/dL Glucose 135 H (70-100) mg/dL Vital Signs Temperature 36.0 C L 06/15/18 08:20 Temperature Source Tympanic 06/15/18 08:20 Pulse 84 06/15/18 12:09 Pulse 88 06/15/18 09:02 Respiratory Rate 14 06/15/18 12:09 Respiratory Effort Labored 06/15/18 08:20 Respiratory Depth Deep 06/15/18 08:20 Respiratory Pattern Tachypnea 06/15/18 08:20 Blood Pressure 127/67 06/15/18 09:02 Blood Pressure Mean 81 06/15/18 09:02 Blood Pressure Position Supine 06/15/18 00:30 Pulse Oximetry 98 06/15/18 12:09 Oxygen Delivery Method Nasal Cannula 06/15/18 12:09 Oxygen Flow Rate 2 06/15/18 12:09 Fraction of Inspired Oxygen (FIO2) 35 06/14/18 15:25 Pain Level 0 06/15/18 00:30 Comment 06/13/18 20:23 Intake & Output 06/14/18 06/15/18 06/15/18 23:59 11:59 23:59 Intake Total 240 / 240 250 / 250 500 / 500 Output Total 650 / 650 400 / 400 250 / 250 Balance -410 / -410 -150 / -150 250 / 250 Weight 190.5 kg Intake: IV Oral 240 / 240 240 / 240 500 / 500 Output: Urine 650 / 650 400 / 400 250 / 250 Other: Urine Color Yellow Straw Yellow Light Anay Urine Appearance Clear Clear Clear Urine Odor None None Comment wears attends but has been voiding on the commode SG 1.030, pH 6, trace protein. Stool Occult Blood Negative Stool Size Large Stool Characteristics Soft Brown Voiding Methods Bedside Commode Bedside Commode Bedside Commode Laboratory Results WBC 13.34 k/cumm (4.4-10.8) H D 06/15/18 06:47 RBC 4.73 m/cumm (4.00-5.20) 06/15/18 06:47 Hgb 13.7 g/dL (12.0-15.5) 06/15/18 06:47 Hct 41.6 % (36.0-46.0) 06/15/18 06:47 MCV 87.9 fL (80-95) 06/15/18 06:47 MCH 29.0 pg (27.0-33.0) 06/15/18 06:47 MCHC 32.9 g/dL (32.0-36.0) 06/15/18 06:47 RDW 14.5 % (11.7-14.6) 06/15/18 06:47 Plt Count 295 x1000/uL (130-400) 06/15/18 06:47 MPV 11.4 fL (8.0-11.0) H 06/15/18 06:47 Immature Gran % 0.3 06/15/18 06:47 Neutrophils % 86.6 06/15/18 06:47 Lymphocytes % 9.7 06/15/18 06:47 Monocytes % 3.4 06/15/18 06:47 Eosinophils % 0.0 06/15/18 06:47 Basophils % 0.0 06/15/18 06:47 Absolute Neutrophils 11.55 k/cumm (1.2-6.7) H 06/15/18 06:47 Absolute Lymphocytes 1.29 k/cumm (1.2-3.4) 06/15/18 06:47 Absolute Monocytes 0.45 k/cumm (0.11-0.7) 06/15/18 06:47 Absolute Eosinophils 0.00 k/cumm (0.0-0.7) 06/15/18 06:47 Absolute Basophils 0.00 k/cumm (0.0-0.2) 06/15/18 06:47 VBG pH 7.35 (7.32-7.43) 06/13/18 20:30 VBG pCO2 58 mm/Hg (34-47) H 06/13/18 20:30 VBG pO2 26 mm/Hg (28-44) L 06/13/18 20:30 VBG HCO3 32 mmol/L (22-28) H 06/13/18 20:30 VBG Total CO2 29 mmol/L (22-29) 06/13/18 20:30 VBG O2 Saturation 50 % (70-80) L 06/13/18 20:30 VBG Base Excess 6.5 mmol/L (-3-3) H 06/13/18 20:30 Sodium 139 mmol/L (136-145) 06/15/18 06:47 Potassium 4.2 mmol/L (3.5-5.1) 06/15/18 06:47 Chloride 102 mmol/L (98-107) 06/15/18 06:47 Carbon Dioxide 29.6 mmol/L (21.0-32.0) 06/15/18 06:47 Anion Gap 7.4 mmol/L (3-11) 06/15/18 06:47 BUN 19 mg/dL (7-18) H 06/15/18 06:47 Creatinine 0.68 mg/dL (0.55-1.02) 06/15/18 06:47 Estimated GFR/1.73 m2 >= 60.00 (mL/min/1.73m2) 06/15/18 06:47 Glucose 135 mg/dL (70-100) H 06/15/18 06:47 Calcium 9.0 mg/dL (8.5-10.1) 06/15/18 06:47 Total Bilirubin 1.2 mg/dL (0.2-1.0) H 06/13/18 20:30 AST 22 U/L (15-37) 06/13/18 20:30 ALT 29 U/L (12-78) 06/13/18 20:30 Alkaline Phosphatase 93 U/L (46-116) 06/13/18 20:30 Troponin I < 0.02 ng/mL (0.00-0.06) 06/13/18 20:30 NT-Pro-B Natriuret Pep 73 pg/mL (-299) 06/13/18 20:30 Total Protein 7.6 g/dL (6.4-8.2) 06/13/18 20:30 Albumin 3.0 g/dL (3.4-5.0) L 06/13/18 20:30
--- NOTE | 2018-06-15 18:17 | NUR.NOTE ---
Nursing Note: Patient was complaining about the placement of her IV. This nurse attempted to gain access at two other points that would not occlude, but was unsuccessful in both attempts, will seek another staff nurse to assist
[2018-06-16] MEDS: Albuterol/Ipratropium 3 ML UPD VIAL UPD ×5 (01:19→20:19)
--- NOTE | 2018-06-16 02:43 | NUR.NOTE ---
Nursing Note: Staff found pt had ambulated to commode by toilet independently. She was extremely SOB and did not have her O2 on. I asked her if she wanted some privacy for a bit on the commode and said she could use the call light when she was ready to get back to bed. Pt became angry and yelling at me. I took a step back from her and turned slightly away and said that we are only concerned about her safety and want to follow our hospital policy. She continued to yell and in response my charge nurse came to talk to her. The charge nurse notified me that the pt is adamantly refusing the hospitals safety protocol regarding her ambulating in her room alone. Pt is also refusing IV fluid therapy at this time.
[2018-06-16 07:14] LABS: Abs Immature Grans 0.02 k/cumm (0.0-0.09); Absolute Lymphocyte Count 1.29 k/cumm (1.2-3.4); Absolute Monocyte Count 0.45 k/cumm (0.11-0.7); Absolute Neutrophil Count 8.75 k/cumm (1.2-6.7); HCT 37.7 % (36.0-46.0); HGB 12.4 g/dL (12.0-15.5); Immature Grans % 0.2; Lymphocytes % 12.3; Mean Corp. HGB Concentration 32.9 g/dL (32.0-36.0); Mean Corpuscular Hemoglobin 29.3 pg (27.0-33.0); Mean Corpuscular Volume 89.1 fL (80-95); Mean Platelet Volume 11.6 fL (8.0-11.0); Monocytes % 4.3; Neutrophils % 83.2; Platelet Count 240 x1000/uL (130-400); RBC 4.23 m/cumm (4.00-5.20); RBC Distribution Width 14.3 % (11.7-14.6); White Blood Cell Count 10.51 k/cumm (4.4-10.8)
[2018-06-16 07:20] LABS: Anion Gap 5.9 mmol/L (3-11); BUN 21 mg/dL (7-18); CO2 30.1 mmol/L (21.0-32.0); CREATININE 0.62 mg/dL (0.55-1.02); Calcium 8.5 mg/dL (8.5-10.1); Chloride 100 mmol/L (98-107); Glucose 148 mg/dL (70-100); Potassium 4.5 mmol/L (3.5-5.1); Sodium 136 mmol/L (136-145)
[2018-06-16 07:45] VITALS: O2SAT 93
[2018-06-16 08:05] VITALS: RESP 8; O2SAT 93
[2018-06-16 08:12] VITALS: BP 107/65; PULSE 76; RESP 20; TEMP 36.3; O2SAT 93
[2018-06-16] MEDS: Fluticasone NASAL SPRAY 16 GM BTL NS (08:55)
[2018-06-16] MEDS: methylPREDNISolone SUCC 40 MG VIAL IVP (08:56)
[2018-06-16] MEDS: Normal Saline Flush 10 ML SYR IVP ×3 (08:56→20:19)
[2018-06-16] MEDS: buPROPion-CR 150 MG TABCR PO (08:57)
[2018-06-16] MEDS: Gabapentin 100 MG CAP 200 MG PO ×2 (08:57→20:19)
[2018-06-16] MEDS: Cefuroxime 500 MG TAB PO ×2 (08:57→20:19)
[2018-06-16] MEDS: Citalopram 20 MG TAB PO (08:58)
[2018-06-16] MEDS: Ascorbic Acid 500 MG TAB 1000 MG PO (08:58)
[2018-06-16] MEDS: Magnesium Chloride 64 MG TABCR PO (08:59)
[2018-06-16] MEDS: Furosemide 40 MG TAB 80 MG PO (08:59)
[2018-06-16] MEDS: Potassium Chloride 10 MEQ CAPCR 20 MEQ PO ×2 (09:00→20:19)
[2018-06-16] MEDS: Aspirin 325 MG TAB PO (09:02)
[2018-06-16] MEDS: Albuterol 2.5 MG/3 ML INH SOLN VIAL UPD ×2 (09:26→14:24)
--- NOTE | 2018-06-16 10:01 | PDOC.CMPRO ---
- If Service Date Differs Date of service: 06/16/18 Time of Service: 10:01 Care Management Progress Note S/O: Radha was sitting on the edge of her bed when CM visits this morning. Radha transferred from the ICU to HI yesterday. She is engaged in conversation, makes good eye contact and is talkative. Radha reports that she is feeling ok this morning. She is wheezy and SOB when speaking with CM. Radha reports that she has been using the bedside table to ambulate between the bed and bedside commode. CM discussed with Radha how unsafe this practice was and asked PT to provide Radha with a walker to use while at [facility]. LONNIE Zamarripa is agreeable. A: 63 year old female admitted with COPD. P: Radha will discharge home when medically ready per MD. Anticipate patient will discharge with no services and follow up with her PCP. Radha will transport via [facility] w/c van. CM will continue to offer support to patient and care team regarding discharge planning and disposition.
--- NOTE | 2018-06-16 10:14 | CMPROGNOTE_ITS ---
- If Service Date Differs Date of service: 06/16/18 Time of Service: 10:01 Care Management Progress Note S/O: Radha was sitting on the edge of her bed when CM visits this morning. Radha transferred from the ICU to ID yesterday. She is engaged in conversation, makes good eye contact and is talkative. Radha reports that she is feeling ok this morning. She is wheezy and SOB when speaking with CM. Radha reports that she has been using the bedside table to ambulate between the bed and bedside commode. CM discussed with Radha how unsafe this practice was and asked PT to provide Radha with a walker to use while at [facility]. LONNIE Zamarripa is agreeable. A: 63 year old female admitted with COPD. P: Radha will discharge home when medically ready per MD. Anticipate patient will discharge with no services and follow up with her PCP. Radha will transport via [facility] w/c van. CM will continue to offer support to patient and care team regarding discharge planning and disposition.
[2018-06-16] MEDS: Pantoprazole 40 MG VIAL IVP (11:21)
--- NOTE | 2018-06-16 12:09 | W.PM.PROGNOT ---
Date of Service Date of service: 06/16/18 Time of Service: 12:11 Assessment and Plan (1) COPD exacerbation: Current visit: No Status: Acute Appears improved. Continue but wean IV Steroids, oral antibiotics with Cefuroxime #4, nebs, and prn BIPAP. CXR negative for infiltrate. Appears to be improving (2) Obstructive sleep apnea syndrome: Current visit: Yes Status: Chronic Noted. Continue BIPAP nightly and as needed. Case Management working on obtaining updates BIPAP/parts for patient. (3) Right ventricular dysfunction: Current visit: Yes Status: Chronic Evidence of decreased RV Function and Pulmonary HTN by last ECHO. (4) Morbid obesity with BMI of 70 and over, adult: Current visit: Yes Status: Chronic Noted. Patient utilizes a scooter that is currently not operable. Case Management working on obtaining funds for new battery. (5) DVT prophylaxis: Current visit: Yes Status: Acute SC Heparin. PPI for GI Prophylaxis. (6) Advance directive on file: Current visit: Yes Status: Acute Full Code. Subjective Interval history since last seen: 63-year-old female with a history COPD and morbid obesity, admitted from [facility] 06/13 with a diagnosis of COPD Exacerbation. Ms. aMsterson reported several weeks of cough with a 2 day history of increasing dyspnea. In the emergency room she was noted to be in respiratory distress and given DuoNeb's, steroids and placed on BiPAP therapy with substantial improvement. Initially required ICU level care, now on Med Surg floor. She remains on IV steroids, nebs, and oral antibiotics, and remains with significant improvement from a breathing standpoint. No overnight events reported. She remains afebrile. Exam Narrative Exam Narrative: General: Patient appears comfortable, sitting up out of bed in chair. NAD. Morbidly Obese. Neck: Supple CV: Regular, nontachycardic, S1S2, No rubs, murmurs, or gallops. Pulmonary: Good air entry with now minimal but continued diffuse wheezing, improved. No crackles. Abdomen: + Bowel Sounds, soft, nontender, nondistended. Obese Contour. Vascular: Nonpitting b/l LE edema Psych: Normal mood and affect. Objective Objective Clinical Data: Abnormal lab results 06/16/18 06/16/18 Range/Units 06:35 06:35 MPV 11.6 H (8.0-11.0) fL Absolute Neutrophils 8.75 H (1.2-6.7) k/cumm BUN 21 H (7-18) mg/dL Glucose 148 H (70-100) mg/dL Vital Signs Temperature 36.3 C L 06/16/18 08:12 Temperature Source Tympanic 06/16/18 08:12 Pulse 76 06/16/18 08:12 Pulse Rhythm Regular 06/16/18 08:50 Pulse 88 06/15/18 09:02 Respiratory Rate 20 06/16/18 08:12 Respiratory Effort Incrsd Work of Breathing 06/16/18 08:50 Respiratory Depth Shallow 06/16/18 08:50 Respiratory Pattern Normal 06/16/18 08:50 Blood Pressure 107/65 06/16/18 08:12 Blood Pressure Mean 81 06/15/18 09:02 Blood Pressure Position Supine 06/15/18 00:30 Pulse Oximetry 93 L 06/16/18 08:12 Oxygen Delivery Method Nasal Cannula 06/16/18 08:12 Oxygen Flow Rate 2 06/16/18 08:12 Fraction of Inspired Oxygen (FIO2) 35 06/14/18 15:25 Pain Level 0 06/15/18 23:11 Comment 06/16/18 08:12 Intake & Output 06/15/18 06/16/18 06/16/18 23:59 11:59 23:59 Intake Total 500 / 500 420 / 420 Output Total 250 / 250 Balance 250 / 250 420 / 420 Weight 192.3 kg Intake: IV 60 / 60 Oral 500 / 500 360 / 360 Output: Urine 250 / 250 Other: Urine Color Yellow Urine Appearance Clear Comment manufacturing supervisor 2nd shift nurse reported patient had been voiding often throughout the night Voiding Methods Bedside Commode Laboratory Results WBC 10.51 k/cumm (4.4-10.8) 06/16/18 06:35 RBC 4.23 m/cumm (4.00-5.20) 06/16/18 06:35 Hgb 12.4 g/dL (12.0-15.5) 06/16/18 06:35 Hct 37.7 % (36.0-46.0) 06/16/18 06:35 MCV 89.1 fL (80-95) 06/16/18 06:35 MCH 29.3 pg (27.0-33.0) 06/16/18 06:35 MCHC 32.9 g/dL (32.0-36.0) 06/16/18 06:35 RDW 14.3 % (11.7-14.6) 06/16/18 06:35 Plt Count 240 x1000/uL (130-400) 06/16/18 06:35 MPV 11.6 fL (8.0-11.0) H 06/16/18 06:35 Immature Gran % 0.2 06/16/18 06:35 Neutrophils % 83.2 06/16/18 06:35 Lymphocytes % 12.3 06/16/18 06:35 Monocytes % 4.3 06/16/18 06:35 Eosinophils % 0.0 06/16/18 06:35 Basophils % 0.0 06/16/18 06:35 Absolute Neutrophils 8.75 k/cumm (1.2-6.7) H 06/16/18 06:35 Absolute Lymphocytes 1.29 k/cumm (1.2-3.4) 06/16/18 06:35 Absolute Monocytes 0.45 k/cumm (0.11-0.7) 06/16/18 06:35 Absolute Eosinophils 0.00 k/cumm (0.0-0.7) 06/16/18 06:35 Absolute Basophils 0.00 k/cumm (0.0-0.2) 06/16/18 06:35 VBG pH 7.35 (7.32-7.43) 06/13/18 20:30 VBG pCO2 58 mm/Hg (34-47) H 06/13/18 20:30 VBG pO2 26 mm/Hg (28-44) L 06/13/18 20:30 VBG HCO3 32 mmol/L (22-28) H 06/13/18 20:30 VBG Total CO2 29 mmol/L (22-29) 06/13/18 20:30 VBG O2 Saturation 50 % (70-80) L 06/13/18 20:30 VBG Base Excess 6.5 mmol/L (-3-3) H 06/13/18 20:30 Sodium 136 mmol/L (136-145) 06/16/18 06:35 Potassium 4.5 mmol/L (3.5-5.1) 06/16/18 06:35 Chloride 100 mmol/L (98-107) 06/16/18 06:35 Carbon Dioxide 30.1 mmol/L (21.0-32.0) 06/16/18 06:35 Anion Gap 5.9 mmol/L (3-11) 06/16/18 06:35 BUN 21 mg/dL (7-18) H 06/16/18 06:35 Creatinine 0.62 mg/dL (0.55-1.02) 06/16/18 06:35 Estimated GFR/1.73 m2 >= 60.00 (mL/min/1.73m2) 06/16/18 06:35 Glucose 148 mg/dL (70-100) H 06/16/18 06:35 Calcium 8.5 mg/dL (8.5-10.1) 06/16/18 06:35 Total Bilirubin 1.2 mg/dL (0.2-1.0) H 06/13/18 20:30 AST 22 U/L (15-37) 06/13/18 20:30 ALT 29 U/L (12-78) 06/13/18 20:30 Alkaline Phosphatase 93 U/L (46-116) 06/13/18 20:30 Troponin I < 0.02 ng/mL (0.00-0.06) 06/13/18 20:30 NT-Pro-B Natriuret Pep 73 pg/mL (-299) 06/13/18 20:30 Total Protein 7.6 g/dL (6.4-8.2) 06/13/18 20:30 Albumin 3.0 g/dL (3.4-5.0) L 06/13/18 20:30
[2018-06-16] MEDS: Heparin 5,000 UNITS/ML VIAL 5000 UNITS SC ×2 (13:34→20:20)
--- NOTE | 2018-06-16 15:40 | CHAPLAIN ---
Radha had a visitor and was eating lunch from [employer] when I visited. She said she did not get along with the nurse from last night, but was doing fine with her nurse today.
[2018-06-16 16:24] VITALS: BP 133/85; PULSE 77; RESP 20; TEMP 36.6; O2SAT 96
--- NOTE | 2018-06-16 23:43 | NUR.NOTE ---
Nursing Note: Pt refuses VS and packing machine tender. She is not able to engage in conversation without becoming belligerent towards staff. She did take her medications this evening. She refuses to allow staff to assist when she ambulates and yells at staff to leave her room.
[2018-06-17] MEDS: Heparin 5,000 UNITS/ML VIAL 5000 UNITS SC ×3 (04:46→19:12)
[2018-06-17 07:34] LABS: Abs Immature Grans 0.03 k/cumm (0.0-0.09); Absolute Eosinophil Count 0.05 k/cumm (0.0-0.7); Absolute Lymphocyte Count 2.74 k/cumm (1.2-3.4); Absolute Monocyte Count 1.27 k/cumm (0.11-0.7); Absolute Neutrophil Count 6.22 k/cumm (1.2-6.7); Eosinophils % 0.5; HCT 40.4 % (36.0-46.0); HGB 13.2 g/dL (12.0-15.5); Immature Grans % 0.3; Lymphocytes % 26.6; Mean Corp. HGB Concentration 32.7 g/dL (32.0-36.0); Mean Corpuscular Hemoglobin 28.9 pg (27.0-33.0); Mean Corpuscular Volume 88.6 fL (80-95); Mean Platelet Volume 11.6 fL (8.0-11.0); Monocytes % 12.3; Neutrophils % 60.3; Platelet Count 243 x1000/uL (130-400); RBC 4.56 m/cumm (4.00-5.20); RBC Distribution Width 14.1 % (11.7-14.6); White Blood Cell Count 10.31 k/cumm (4.4-10.8)
[2018-06-17 07:40] VITALS: BP 151/68; PULSE 74; RESP 23; TEMP 36.3; O2SAT 95
[2018-06-17 08:47] LABS: Anion Gap 6.9 mmol/L (3-11); BUN 24 mg/dL (7-18); CO2 31.1 mmol/L (21.0-32.0); CREATININE 0.66 mg/dL (0.55-1.02); Calcium 8.3 mg/dL (8.5-10.1); Chloride 100 mmol/L (98-107); Glucose 86 mg/dL (70-100); Potassium 3.7 mmol/L (3.5-5.1); Sodium 138 mmol/L (136-145)
[2018-06-17 09:16] VITALS: RESP 2
[2018-06-17] MEDS: Albuterol/Ipratropium 3 ML UPD VIAL UPD ×4 (09:16→19:12)
[2018-06-17] MEDS: Citalopram 20 MG TAB PO (10:03)
[2018-06-17] MEDS: Potassium Chloride 10 MEQ CAPCR 20 MEQ PO ×2 (10:03→19:12)
[2018-06-17] MEDS: Gabapentin 100 MG CAP 200 MG PO ×2 (10:04→19:12)
[2018-06-17] MEDS: Magnesium Chloride 64 MG TABCR PO (10:04)
[2018-06-17] MEDS: Aspirin 325 MG TAB PO (10:04)
[2018-06-17] MEDS: buPROPion-CR 150 MG TABCR PO (10:04)
[2018-06-17] MEDS: Cefuroxime 500 MG TAB PO ×2 (10:04→19:12)
[2018-06-17] MEDS: Ascorbic Acid 500 MG TAB 1000 MG PO (10:05)
[2018-06-17] MEDS: Furosemide 40 MG TAB 80 MG PO (10:05)
[2018-06-17] MEDS: Normal Saline Flush 10 ML SYR IVP (10:06)
[2018-06-17] MEDS: methylPREDNISolone SUCC 40 MG VIAL IVP (10:06)
[2018-06-17] MEDS: Pantoprazole 40 MG VIAL IVP (12:18)
[2018-06-17] MEDS: Fluticasone NASAL SPRAY 16 GM BTL NS (12:18)
--- NOTE | 2018-06-17 12:35 | PDOC.CMPRO ---
- If Service Date Differs Date of service: 06/17/18 Time of Service: 12:35 Care Management Progress Note S/O: Radha was sitting up in bed when CM visits this morning. She is somewhat withdrawn from conversation and is distracted by a game she is playing on her phone. Radha continues to receive supplemental O2 via NC and has home O2 and a bipap. She has audible wheezes, is visibly SOB, and has a harsh cough with sputum that were not noted by this CM yesterday. PT has provided Radha with a walker to utilize for ambulation while she is at [facility]. A: 63 year old female admitted with COPD. P: Radha will discharge home when medically ready per MD. Anticipate patient will discharge with no services and follow up with her PCP. Radha will transport via [facility] w/c van or via private vehicle with a friend. CM will continue to offer support to patient and care team regarding discharge planning and disposition.
--- NOTE | 2018-06-17 12:38 | CMPROGNOTE_ITS ---
- If Service Date Differs Date of service: 06/17/18 Time of Service: 12:35 Care Management Progress Note S/O: Radha was sitting up in bed when CM visits this morning. She is somewhat withdrawn from conversation and is distracted by a game she is playing on her phone. Radha continues to receive supplemental O2 via NC and has home O2 and a bipap. She has audible wheezes, is visibly SOB, and has a harsh cough with sputum that were not noted by this CM yesterday. PT has provided Radha with a walker to utilize for ambulation while she is at [facility]. A: 63 year old female admitted with COPD. P: Radha will discharge home when medically ready per MD. Anticipate patient will discharge with no services and follow up with her PCP. Radha will transport via [facility] w/c van or via private vehicle with a friend. CM will continue to offer support to patient and care team regarding discharge planning and disposition.
[2018-06-17 13:48] VITALS: RESP 4
--- NOTE | 2018-06-17 13:57 | NUR.NOTE ---
Nursing Note: I went in to ask Jeralddiogenesisma if she wanted to wash up at 10:30am, she said she would later after lunch, The Nursing students went in after lunch around 1:00pm and she refused.
[2018-06-17 14:00] VITALS: RESP 4
[2018-06-17 15:52] VITALS: BP 127/61; PULSE 77; RESP 22; TEMP 36.7; O2SAT 94
--- NOTE | 2018-06-17 18:45 | W.PM.PROGNOT ---
Date of Service Date of service: 06/17/18 Time of Service: 14:15 Assessment and Plan (1) COPD exacerbation: Current visit: No Status: Acute Per patient, improving. Change steroids to PO. Continue cefuroxime. (2) Obstructive sleep apnea syndrome: Current visit: Yes Status: Chronic Continue use of own BiPAP. Likely has OHS as well. (3) Right ventricular dysfunction: Current visit: Yes Status: Chronic decreased RV Function and Pulmonary HTN by last ECHO, likely due to above - monitor volume status, continue use of BiPAP whenever asleep. (4) Morbid obesity with BMI of 70 and over, adult: Current visit: Yes Status: Chronic Case management addressing scooter issues (5) DVT prophylaxis: Current visit: Yes Status: Acute SC Heparin. PPI for GI Prophylaxis. (6) Advance directive on file: Current visit: Yes Status: Acute Full Code. Subjective Interval history since last seen: Patient states she is feeling better than yesterday. Denies dizziness, chest pain, shortness of breath, nausea, vomiting. Exam Narrative Exam Narrative: General: Very pleasant Obese female, in bed, wearing BiPAP while napping, easily arousable Neurological: A&Ox3, no focal deficits Psychiatric: appropriate speech pattern and content Skin: No bruises/rashes HEENT: EOMI, MMM Cardiovascular: RRR, no m/r/g Lungs: Diminished breath sounds B with audible air entry Gastrointestinal: Abdomen soft, nontender, nondistended Extremities: BLE lymphedema Objective Objective Clinical Data: Abnormal lab results 06/17/18 06/17/18 Range/Units 06:30 06:30 MPV 11.6 H (8.0-11.0) fL Absolute Monocytes 1.27 H (0.11-0.7) k/cumm BUN 24 H (7-18) mg/dL Calcium 8.3 L (8.5-10.1) mg/dL Vital Signs Temperature 36.7 C 06/17/18 15:52 Temperature Source Tympanic 06/17/18 15:52 Pulse 77 06/17/18 15:52 Pulse Rhythm Regular 06/17/18 09:35 Pulse 88 06/15/18 09:02 Respiratory Rate 22 06/17/18 15:52 Respiratory Effort Incrsd Work of Breathing 06/17/18 09:35 Respiratory Depth Normal 06/17/18 09:35 Respiratory Pattern Normal 06/17/18 09:35 Blood Pressure 127/61 06/17/18 15:52 Blood Pressure Mean 81 06/15/18 09:02 Blood Pressure Position Supine 06/15/18 00:30 Pulse Oximetry 94 L 06/17/18 15:52 Oxygen Delivery Method Nasal Cannula 06/17/18 15:52 Oxygen Flow Rate 2 06/17/18 15:52 Fraction of Inspired Oxygen (FIO2) 35 06/14/18 15:25 Pain Level 0 06/17/18 07:40 Comment 06/16/18 23:47 Intake & Output 06/16/18 06/17/18 06/17/18 23:59 11:59 23:59 Intake Total 480 / 480 530 / 530 870 / 870 Balance 480 / 480 530 / 530 870 / 870 Weight 191.7 kg Intake: IV 30 30 30 Oral 480 / 480 500 / 500 840 / 840 Other: Comment Void x 1 in toilet. Laboratory Results WBC 10.31 k/cumm (4.4-10.8) 06/17/18 06:30 RBC 4.56 m/cumm (4.00-5.20) 06/17/18 06:30 Hgb 13.2 g/dL (12.0-15.5) 06/17/18 06:30 Hct 40.4 % (36.0-46.0) 06/17/18 06:30 MCV 88.6 fL (80-95) 06/17/18 06:30 MCH 28.9 pg (27.0-33.0) 06/17/18 06:30 MCHC 32.7 g/dL (32.0-36.0) 06/17/18 06:30 RDW 14.1 % (11.7-14.6) 06/17/18 06:30 Plt Count 243 x1000/uL (130-400) 06/17/18 06:30 MPV 11.6 fL (8.0-11.0) H 06/17/18 06:30 Immature Gran % 0.3 06/17/18 06:30 Neutrophils % 60.3 06/17/18 06:30 Lymphocytes % 26.6 06/17/18 06:30 Monocytes % 12.3 06/17/18 06:30 Eosinophils % 0.5 06/17/18 06:30 Basophils % 0.0 06/17/18 06:30 Absolute Neutrophils 6.22 k/cumm (1.2-6.7) 06/17/18 06:30 Absolute Lymphocytes 2.74 k/cumm (1.2-3.4) 06/17/18 06:30 Absolute Monocytes 1.27 k/cumm (0.11-0.7) H 06/17/18 06:30 Absolute Eosinophils 0.05 k/cumm (0.0-0.7) 06/17/18 06:30 Absolute Basophils 0.00 k/cumm (0.0-0.2) 06/17/18 06:30 VBG pH 7.35 (7.32-7.43) 06/13/18 20:30 VBG pCO2 58 mm/Hg (34-47) H 06/13/18 20:30 VBG pO2 26 mm/Hg (28-44) L 06/13/18 20:30 VBG HCO3 32 mmol/L (22-28) H 06/13/18 20:30 VBG Total CO2 29 mmol/L (22-29) 06/13/18 20:30 VBG O2 Saturation 50 % (70-80) L 06/13/18 20:30 VBG Base Excess 6.5 mmol/L (-3-3) H 06/13/18 20:30 Sodium 138 mmol/L (136-145) 06/17/18 06:30 Potassium 3.7 mmol/L (3.5-5.1) 06/17/18 06:30 Chloride 100 mmol/L (98-107) 06/17/18 06:30 Carbon Dioxide 31.1 mmol/L (21.0-32.0) 06/17/18 06:30 Anion Gap 6.9 mmol/L (3-11) 06/17/18 06:30 BUN 24 mg/dL (7-18) H 06/17/18 06:30 Creatinine 0.66 mg/dL (0.55-1.02) 06/17/18 06:30 Estimated GFR/1.73 m2 >= 60.00 (mL/min/1.73m2) 06/17/18 06:30 Glucose 86 mg/dL (70-100) D 06/17/18 06:30 Calcium 8.3 mg/dL (8.5-10.1) L 06/17/18 06:30 Total Bilirubin 1.2 mg/dL (0.2-1.0) H 06/13/18 20:30 AST 22 U/L (15-37) 06/13/18 20:30 ALT 29 U/L (12-78) 06/13/18 20:30 Alkaline Phosphatase 93 U/L (46-116) 06/13/18 20:30 Troponin I < 0.02 ng/mL (0.00-0.06) 06/13/18 20:30 NT-Pro-B Natriuret Pep 73 pg/mL (-299) 06/13/18 20:30 Total Protein 7.6 g/dL (6.4-8.2) 06/13/18 20:30 Albumin 3.0 g/dL (3.4-5.0) L 06/13/18 20:30
[2018-06-17 19:12] VITALS: RESP 4
[2018-06-18] VITALS (13 sets, daily range): BP systolic 107–128; BP diastolic 62–72; PULSE 64–90; RESP 2–20; TEMP 36–36.8; O2SAT 94–97
[2018-06-18] MEDS: Heparin 5,000 UNITS/ML VIAL 5000 UNITS SC ×3 (04:24→20:07)
[2018-06-18] MEDS: Albuterol/Ipratropium 3 ML UPD VIAL UPD ×3 (07:01→18:51)
[2018-06-18] MEDS: Furosemide 40 MG TAB 80 MG PO (08:12)
[2018-06-18] MEDS: Aspirin 325 MG TAB PO (08:12)
[2018-06-18] MEDS: Citalopram 20 MG TAB PO (08:12)
[2018-06-18] MEDS: buPROPion-CR 150 MG TABCR PO (08:12)
[2018-06-18] MEDS: Cefuroxime 500 MG TAB PO (08:13)
[2018-06-18] MEDS: Potassium Chloride 10 MEQ CAPCR 20 MEQ PO ×2 (08:13→20:09)
[2018-06-18] MEDS: predniSONE 20 MG TAB 40 MG PO ×2 (08:13→20:10)
[2018-06-18] MEDS: Ascorbic Acid 500 MG TAB 1000 MG PO (08:13)
[2018-06-18] MEDS: Fluticasone NASAL SPRAY 16 GM BTL NS (08:14)
[2018-06-18] MEDS: Magnesium Chloride 64 MG TABCR PO (08:14)
[2018-06-18] MEDS: Gabapentin 100 MG CAP 200 MG PO ×2 (08:14→20:09)
[2018-06-18] MEDS: Albuterol 2.5 MG/3 ML INH SOLN VIAL UPD (11:33)
[2018-06-18] MEDS: Normal Saline Flush 10 ML SYR IVP ×2 (11:50→12:00)
[2018-06-18] MEDS: Pantoprazole 40 MG VIAL IVP (12:00)
[2018-06-18] MEDS: LEVOFLOXACIN 500 MG/100 ML BAG 100 MG IVPB (13:54)
--- NOTE | 2018-06-18 17:17 | PDOC.CMPRO ---
Care Management Progress Note S/O: Radha was reviewed during interdisciplinary rounds; per RNCC, Radha is anxious to return home and requesting discharge. Per MD, Radha will need to complete an ambulatory pulse oximetry with RT prior to discharge, but if stable-could return home as soon as this evening; per MD. CM was unable to connect directly with Radha today. A: 63 year old female admitted with COPD. P: Radha will discharge home when medically ready per MD. Anticipate patient will discharge with no services and follow up with her PCP. Radha will transport via [facility] w/c van or via private vehicle with a friend. CM will continue to offer support to patient and care team regarding discharge planning and disposition.
--- NOTE | 2018-06-18 17:33 | CMPROGNOTE_ITS ---
Care Management Progress Note S/O: Radha was reviewed during interdisciplinary rounds; per RNCC, Radha is anxious to return home and requesting discharge. Per MD, Radha will need to complete an ambulatory pulse oximetry with RT prior to discharge, but if stable- could return home as soon as this evening; per MD. CM was unable to connect directly with Radha today. A: 63 year old female admitted with COPD. P: Radha will discharge home when medically ready per MD. Anticipate patient will discharge with no services and follow up with her PCP. Radha will transport via [facility] w/c van or via private vehicle with a friend. CM will continue to offer support to patient and care team regarding discharge planning and disposition.
--- NOTE | 2018-06-18 18:14 | W.PM.PROGNOT ---
Date of Service Date of service: 06/18/18 Time of Service: 12:00 Assessment and Plan (1) COPD exacerbation: Current visit: No Status: Acute As the patient still reports a cough productive of green sputum, I changed abx to levofloxacin (and placed the patient on tele due to risk of QT prolongation on celexa). Increase steroids. Continue antitussives/nebs. Ambulate patient with pulse ox. She is not ready to return home. (2) Obstructive sleep apnea syndrome: Current visit: Yes Status: Chronic Continue use of own BiPAP. Likely has OHS as well. (3) Right ventricular dysfunction: Current visit: Yes Status: Chronic decreased RV Function and Pulmonary HTN by last ECHO, likely due to her DAVID/OHS - monitor volume status, continue use of BiPAP whenever asleep. (4) Morbid obesity with BMI of 70 and over, adult: Current visit: Yes Status: Chronic Case management addressing scooter issues (5) DVT prophylaxis: Current visit: Yes Status: Acute SC Heparin. PPI for GI Prophylaxis. (6) Advance directive on file: Current visit: Yes Status: Acute Full Code. Subjective Interval history since last seen: Reports not feeling back to her normal. Had a coughing spell today that required a nebulizer treatment because she got very short of breath. Continues to report cough productive of green sputum. Denies dizziness, chest pain, nausea, vomiting. Exam Narrative Exam Narrative: General: Very pleasant Obese female, awake in bed, sounds congested/like she has respiratory secretions when she is talking. She is laying flat in bed. Neurological: A&Ox3, no focal deficits Psychiatric: appropriate speech pattern and content Skin: No bruises/rashes HEENT: EOMI, MMM Cardiovascular: RRR, no m/r/g Lungs: Wheezing on expiration bilaterally. moist respiratory sounds/rhonchi. Gastrointestinal: Abdomen soft, nontender, nondistended Extremities: BLE lymphedema Objective Objective Clinical Data: Vital Signs Temperature 36.8 C 06/18/18 16:10 Temperature Source Skin 06/18/18 16:10 Pulse 64 06/18/18 16:10 Pulse Rhythm Regular 06/18/18 07:30 Pulse 88 06/15/18 09:02 Respiratory Rate 16 06/18/18 16:10 Respiratory Effort Non-Labored 06/18/18 07:30 Respiratory Depth Deep 06/18/18 07:30 Respiratory Pattern Normal 06/18/18 07:30 Blood Pressure 115/62 06/18/18 16:10 Blood Pressure Mean 81 06/15/18 09:02 Blood Pressure Position Supine 06/15/18 00:30 Pulse Oximetry 96 06/18/18 16:10 Oxygen Delivery Method Nasal Cannula 06/18/18 16:10 Oxygen Flow Rate 2 06/18/18 16:10 Fraction of Inspired Oxygen (FIO2) 35 06/14/18 15:25 Pain Level 0 06/18/18 16:10 Comment 06/18/18 07:35 Intake & Output 06/18/18 06/18/18 06/18/18 00:59 11:59 23:59 Intake Total 710 / 710 Balance 710 / 710 Weight Intake: IV 110 / 110 Oral 600 / 600 Other: Comment Void x10 in the toilet throughout the day. Stool Size Stool Characteristics Voiding Methods Toilet Laboratory Results WBC 10.31 k/cumm (4.4-10.8) 06/17/18 06:30 RBC 4.56 m/cumm (4.00-5.20) 06/17/18 06:30 Hgb 13.2 g/dL (12.0-15.5) 06/17/18 06:30 Hct 40.4 % (36.0-46.0) 06/17/18 06:30 MCV 88.6 fL (80-95) 06/17/18 06:30 MCH 28.9 pg (27.0-33.0) 06/17/18 06:30 MCHC 32.7 g/dL (32.0-36.0) 06/17/18 06:30 RDW 14.1 % (11.7-14.6) 06/17/18 06:30 Plt Count 243 x1000/uL (130-400) 06/17/18 06:30 MPV 11.6 fL (8.0-11.0) H 06/17/18 06:30 Immature Gran % 0.3 06/17/18 06:30 Neutrophils % 60.3 06/17/18 06:30 Lymphocytes % 26.6 06/17/18 06:30 Monocytes % 12.3 06/17/18 06:30 Eosinophils % 0.5 06/17/18 06:30 Basophils % 0.0 06/17/18 06:30 Absolute Neutrophils 6.22 k/cumm (1.2-6.7) 06/17/18 06:30 Absolute Lymphocytes 2.74 k/cumm (1.2-3.4) 06/17/18 06:30 Absolute Monocytes 1.27 k/cumm (0.11-0.7) H 06/17/18 06:30 Absolute Eosinophils 0.05 k/cumm (0.0-0.7) 06/17/18 06:30 Absolute Basophils 0.00 k/cumm (0.0-0.2) 06/17/18 06:30 VBG pH 7.35 (7.32-7.43) 06/13/18 20:30 VBG pCO2 58 mm/Hg (34-47) H 06/13/18 20:30 VBG pO2 26 mm/Hg (28-44) L 06/13/18 20:30 VBG HCO3 32 mmol/L (22-28) H 06/13/18 20:30 VBG Total CO2 29 mmol/L (22-29) 06/13/18 20:30 VBG O2 Saturation 50 % (70-80) L 06/13/18 20:30 VBG Base Excess 6.5 mmol/L (-3-3) H 06/13/18 20:30 Sodium 138 mmol/L (136-145) 06/17/18 06:30 Potassium 3.7 mmol/L (3.5-5.1) 06/17/18 06:30 Chloride 100 mmol/L (98-107) 06/17/18 06:30 Carbon Dioxide 31.1 mmol/L (21.0-32.0) 06/17/18 06:30 Anion Gap 6.9 mmol/L (3-11) 06/17/18 06:30 BUN 24 mg/dL (7-18) H 06/17/18 06:30 Creatinine 0.66 mg/dL (0.55-1.02) 06/17/18 06:30 Estimated GFR/1.73 m2 >= 60.00 (mL/min/1.73m2) 06/17/18 06:30 Glucose 86 mg/dL (70-100) D 06/17/18 06:30 Calcium 8.3 mg/dL (8.5-10.1) L 06/17/18 06:30 Total Bilirubin 1.2 mg/dL (0.2-1.0) H 06/13/18 20:30 AST 22 U/L (15-37) 06/13/18 20:30 ALT 29 U/L (12-78) 06/13/18 20:30 Alkaline Phosphatase 93 U/L (46-116) 06/13/18 20:30 Troponin I < 0.02 ng/mL (0.00-0.06) 06/13/18 20:30 NT-Pro-B Natriuret Pep 73 pg/mL (-299) 06/13/18 20:30 Total Protein 7.6 g/dL (6.4-8.2) 06/13/18 20:30 Albumin 3.0 g/dL (3.4-5.0) L 06/13/18 20:30
[2018-06-19] VITALS (8 sets, daily range): BP systolic 143–171; BP diastolic 69–77; PULSE 65–112; RESP 8–24; TEMP 36.2–36.7; O2SAT 90–95
[2018-06-19] MEDS: Albuterol/Ipratropium 3 ML UPD VIAL UPD ×3 (01:08→13:05)
[2018-06-19] MEDS: Acetaminophen 325 MG TAB 650 MG PO (01:14)
[2018-06-19] MEDS: Heparin 5,000 UNITS/ML VIAL 5000 UNITS SC ×2 (03:39→12:23)
[2018-06-19] MEDS: Ascorbic Acid 500 MG TAB 1000 MG PO (07:58)
[2018-06-19] MEDS: Gabapentin 100 MG CAP 200 MG PO (07:58)
[2018-06-19] MEDS: predniSONE 20 MG TAB 40 MG PO (07:59)
[2018-06-19] MEDS: Potassium Chloride 10 MEQ CAPCR 20 MEQ PO (07:59)
[2018-06-19] MEDS: Citalopram 20 MG TAB PO (07:59)
[2018-06-19] MEDS: Aspirin 325 MG TAB PO (07:59)
[2018-06-19] MEDS: Magnesium Chloride 64 MG TABCR PO (07:59)
[2018-06-19] MEDS: Furosemide 40 MG TAB 80 MG PO (07:59)
[2018-06-19] MEDS: buPROPion-CR 150 MG TABCR PO (07:59)
[2018-06-19] MEDS: Fluticasone NASAL SPRAY 16 GM BTL NS (08:00)
--- NOTE | 2018-06-19 10:44 | PDOC.CMPRO ---
- If Service Date Differs Date of service: 06/19/18 Time of Service: 10:45 Care Management Progress Note S/O: Radha is sitting on the edge of her bed when CM visits this morning. She is engaged in conversation, makes good eye contact, and is talkative. Radha reports that she is feeling much improved from past days and believes she is ready to return home. CM left Radha's room for 5 minutes and returned to ask about pharmacy preference per request of MD. When CM entered room, Radha was sitting on the floor between the toilet and the sink, leaning against the wall. Radha informed CM that she was over at the sink washing her hands following use of the BR, when she tripped on her pajama pants and fell down/lowered herself to the floor. Radha reported that she did not hit her head and did not have any pain. CM called for MITESH Kern who helped CM get Radha up to her walker. Radha ambulated with her walker back to the bed and again reiterated that she was fine. A: 63 year old female admitted with COPD. P: Radha will discharge home when medically ready per MD. Anticipate patient will discharge with no services and follow up with her PCP. Radha will transport via [facility] w/c van. CM will continue to offer support to patient and care team regarding discharge planning and disposition.
[2018-06-19] MEDS: Normal Saline Flush 10 ML SYR IVP (12:23)
[2018-06-19] MEDS: Pantoprazole 40 MG VIAL IVP (12:23)
--- NOTE | 2018-06-19 13:05 | DSE_ITS ---
Date of service: 06/19/18 Time of Service: 10:30 DS: Diagnosis Discharge Diagnosis (1) COPD exacerbation: Status: Acute (2) Obstructive sleep apnea syndrome: Status: Chronic (3) Right ventricular dysfunction: Status: Chronic (4) Morbid obesity with BMI of 70 and over, adult: Status: Chronic (5) DVT prophylaxis: Status: Acute (6) Advance directive on file: Status: Acute Discharge Plan Disposition Patient Disposition: HOME Condition: Critical Discharge Details Reason For Visit: COPD Admit Date/Time: 06/13/18 22:09 Admit Provider: Sunny Ferrer Attending Provider: Sunny Ferrer Primary Care Provider: Alphonso Murphy Hospital Course Hospital Course: Patient is a 63-year-old female with COPD and morbid obesity who presents to the emergency department with several weeks of cough and 1-2 days of increasing shortness of breath. She presented in respiratory distress and was given DuoNeb 's, steroids and placed on BiPAP with substantial improvement. She was admitted under hospitalist services for further evaluation and management of COPD exacerbation. She was maintained on IV steroids, nebulizers, and Levaquin. She continued to slowly improve and steroids were tapered to oral. She is now weaned off bipap and oxygenating well on her home flow rate. She has been afebrile and hemodynamically stable. She is eating and drinking, bowels and bladder functioning and she is stable for discharge to home with no new services. She will continue taper of steroids and 3 more days of levaquin to finish a 5 day course. She was monitored on telemetry for risk of QT prolongation with combination of antidepressants and levaquin, QT remained normal at 0.41. Home Meds and New Rx's Prescriptions: New levofloxacin [Levaquin] 500 mg tablet 500 mg PO DAILY Qty: 3 RF: 0 prednisone 20 mg tablet 40 mg PO BID Qty: 60 RF: 0 Continue ascorbic acid (vitamin C) 1,000 MG tablet 1,000 mg PO DAILY RF: 0 inhalational spacing device [Aerochamber Mini] 1 EACH spacer 1 ea Inhalation PRN Qty: 1 RF: 0 BiPAP Inhalation Gas 5 l IN DIRECTED RF: 0 oxygen Inhalation 2 l Intranasal DIRECTED RF: 0 guaifenesin [Mucinex] 600 MG tablet extended release 12hr 1 - 2 tab PO Q12H PRN Qty: 30 RF: 2 ipratropium-albuterol 3 ML solution for nebulization 1 amp Inhalation Q6H PRN Qty: 100 RF: 4 clotrimazole 45 GM cream 45 gm Topical BID prn Qty: 45 RF: 2 nystatin (bulk) 1 EACH powder 1 applic Topical BID PRN Qty: 60 RF: 2 furosemide [Lasix] 40 MG tablet 80 mg PO QAM Qty: 180 RF: 11 silver sulfadiazine 20 GM cream 1 applic Topical BID PRNQty: 60 RF: 2 potassium chloride 10 MEQ capsule, extended release 2 tab-cap PO BID Qty: 180 RF: 4 citalopram [Celexa] 20 MG tablet 20 mg PO DAILY Qty: 30 RF: 11 gabapentin 100 MG capsule 2 cap PO BID Qty: 60 RF: 11 albuterol sulfate [ProAir HFA] 8.5 GM HFA aerosol inhaler 1 - 2 puff Inhalation Q6H PRN Qty: 1 RF: 11 fluticasone [Flonase Allergy Relief] 9.9 ML spray,suspension 1 spray NS DAILY Qty: 1 RF: 2 magnesium chloride [Mag 64] 64 MG tablet,delayed release (DR/EC) 64 mg PO DAILY Qty: 30 RF: 11 bupropion HCl (smoking deter) 150 MG tablet extended release 12 hr 150 mg PO QAM Qty: 30 RF: 11 triamcinolone acetonide 15 GM cream 1 appful Topical BID PRNQty: 30 RF: 0 aspirin 325 MG tablet 325 mg PO DAILY Qty: 0 RF: 0 Discontinued prednisone 20 MG tablet 40 mg PO DAILY Qty: 10 RF: 0 Discharge Instructions Instructions: COPD (Chronic Obstructive Pulmonary Disease) (DC) Additional Instructions: continue to taper your steroids accordingly: prednisone taper: 40 mg twice daily for 3 days, then 20 mg twice daily for 3 days, then 20 mg daily for 3 days, then 10 mg daily for 3 days, then as directed by primary care continue levaquin 500 mg daily for 3 more days to complete a 5 day course. Stand Alone Forms: Nursing Discharge Form Referrals: Alphonso Murphy [Primary Care Provider] - 06/30/18 3:20 pm Activity:: Activity as Tolerated Equipment/Supplies:: No Equipment Needed Diet:: As Tolerated Discharge Orders Discharge Orders: Discharge Order (Routine); Ordered 06/19/18 Ordered By: Mine Farah Discharge Data Discharge Date/Time-TO BE ENTERED AT DEPARTURE: 06/19/18 14:55 Exam Const General: no acute distress and ill appearing chronically and other (older than stated age) Nutritional Appearance: obese morbidly obese Resp Auscultation: diminished lung sounds bilaterally (throughout) Cardio Rate: regular rate Rhythm: regular rhythm GI Inspection: large pannus and obesity Palpation: soft Auscultation: normal bowel sounds Skin General skin exam: no rashes or lesions noted Neuro General: alert and oriented x3 Cognition: normal cognition Speech: speech normal Extrem Right lower extremity: edema (bilateral lower extremity, lymphedema) Psych Appearance: disheveled Mood: congruent mood Affect: blunted Attitude: cooperative DS: Data Vitals/I&O Vitals and I&O: Vital Signs Temperature 36.7 C 06/19/18 11:40 Temperature Source Tympanic 06/19/18 11:40 Pulse 87 06/19/18 11:40 Pulse Rhythm Regular 06/19/18 08:00 Pulse 88 06/15/18 09:02 Respiratory Rate 19 06/19/18 11:40 Respiratory Effort Non-Labored 06/19/18 08:00 Respiratory Depth Normal 06/19/18 08:00 Respiratory Pattern Normal 06/19/18 08:00 Blood Pressure 171/77 H 06/19/18 11:40 Blood Pressure Mean 81 06/15/18 09:02 Blood Pressure Position Supine 06/15/18 00:30 Pulse Oximetry 94 L 06/19/18 11:40 Oxygen Delivery Method Nasal Cannula 06/19/18 11:40 Oxygen Flow Rate 2 06/19/18 11:40 Fraction of Inspired Oxygen (FIO2) 35 06/14/18 15:25 Pain Level 0 06/19/18 11:40 Comment 06/18/18 07:35 Intake & Output 06/18/18 06/19/18 06/19/18 23:59 11:59 23:59 Intake Total 830 / 830 Balance 830 / 830 Weight 186.9 kg Intake: IV 110 / 110 Oral 720 / 720 Other: Comment Void x10 in the toilet throughout the day. Voiding Methods Toilet Labs on day of discharge: Preliminary micro results at discharge 06/18/18 19:20 Sputum Culture - Preliminary Sputum - Expectorated Normal Tamika
--- NOTE | 2018-06-19 15:19 | PDOC.CMDIS ---
LACE Index Scoring Tool - Questions: Length of Stay (in days): 7 - 13 Acuity (Admit via E.D.?): Yes Comorbidities: Chronic Pulmonary Disease E.D. Visits: 1 - Answers: Total Score: 11 Risk of Readmission: High Risk Care Management Discharge Reason for Hospitalization: COPD. Discharge Plan: Radha will discharge home when medically ready per MD. Anticipate patient will discharge with no services and follow up with his PCP. Radha will transport via RCT w/c van. Patient/Family Education Needs: Discharge education, any limitations, and follow up plan of care. Ask Me Three discussion.
[2018-06-23 18:51] VITALS: BP 147/73; PULSE 71; RESP 14; TEMP 37.8; O2SAT 96
== END 2018-06-19 14:55 | disposition home or self-care (01) | DRG 191 ==
LOC: ER 22:17 → ICU 06-14 12:12 → MS 06-19 13:16 → ICU 07-03 16:28
PROVIDERS: Internal Medicine; Admitting Provider General Practice; Emergency Provider Student in an Organized Health Care Education/Training Program; PCP Family Medicine; Visit Provider Internal Medicine
DX: J44.1 Chronic obstructive pulmonary disease with (acute) exacerbation (principal); Z68.45 Body mass index [BMI] 70 or greater, adult; G47.33 Obstructive sleep apnea (adult) (pediatric); I51.89 Other ill-defined heart diseases; E66.01 Morbid (severe) obesity due to excess calories; I27.20 Pulmonary hypertension, unspecified; Z23 Encounter for immunization
CPT/HCPCS: 36415; 80048; 80053; 82805; 93005; 94640; 96374; 96376; 99222; 99232; 99233; 99238; 99285; J1650; 71045; 83880; 84484; 85025; 87070; 87205; 93010; J1644; J1956; J2930; J7512; J7613; J7620

== ENCOUNTER 2018-06-30 15:17 | Outpatient (CLI) | payer MEDICARE, MEDICAID, SELFPAY ==
--- NOTE | 2018-06-30 16:15 | DI.RAD_ITS ---
SYMPTOM/DIAGNOSIS: LT KNEE PAIN, M25.562 LEFT KNEE: Three views were obtained. 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 There is a lucent halo adjacent to the femoral component of the joint replacement which appears more prominent than on previous examination of and this finding could be associated with loosening of the component. No other significant change is seen. Clinical correlation requested regarding the site of the patient's symptomatology.
== END 2018-06-30 15:37 ==
PROVIDERS: PCP Family Medicine; Visit Provider Family Medicine
DX: M25.562 Pain in left knee (principal); Z96.652 Presence of left artificial knee joint
CPT/HCPCS: 73562

== ENCOUNTER 2018-07-20 11:32 | Emergency (ER) | payer MEDICARE, MEDICAID, SELFPAY ==
[2018-07-20 11:37] VITALS: BP 123/62; PULSE 79; RESP 18; TEMP 37.2; O2SAT 97
--- NOTE | 2018-07-20 11:39 | W.ED.GENAD ---
Discharge Plan Disposition Patient Disposition: HOME Condition: Stable Discharge Details Chief Complaint: Nk/Back Pain Clinical Impression: Low back pain Primary Care Provider: Alphonso Murphy ED Provider: Mariana Garland Home Meds and New Rx's Prescriptions: New cyclobenzaprine 10 mg tablet 10 mg PO TID Qty: 9 RF: 0 lidocaine 5 % adhesive patch,medicated 1 patch TP DAILY Qty: 15 RF: 0 Continue ascorbic acid (vitamin C) 1,000 MG tablet 1,000 mg PO DAILY RF: 0 inhalational spacing device [Aerochamber Mini] 1 EACH spacer 1 ea Inhalation PRN Qty: 1 RF: 0 BiPAP Inhalation Gas 5 l IN DIRECTED RF: 0 oxygen Inhalation 2 l Intranasal DIRECTED RF: 0 guaifenesin [Mucinex] 600 MG tablet extended release 12hr 1 - 2 tab PO Q12H PRN Qty: 30 RF: 2 clotrimazole 45 GM cream 45 gm Topical BID prn Qty: 45 RF: 2 nystatin (bulk) 1 EACH powder 1 applic Topical BID PRN Qty: 60 RF: 2 silver sulfadiazine 20 GM cream 1 applic Topical BID PRNQty: 60 RF: 2 potassium chloride 10 MEQ capsule, extended release 2 tab-cap PO BID Qty: 180 RF: 4 citalopram [Celexa] 20 MG tablet 20 mg PO DAILY Qty: 30 RF: 11 gabapentin 100 MG capsule 2 cap PO BID Qty: 60 RF: 11 albuterol sulfate [ProAir HFA] 8.5 GM HFA aerosol inhaler 1 - 2 puff Inhalation Q6H PRN Qty: 1 RF: 11 fluticasone [Flonase Allergy Relief] 9.9 ML spray,suspension 1 spray NS DAILY Qty: 1 RF: 2 magnesium chloride [Mag 64] 64 MG tablet,delayed release (DR/EC) 64 mg PO DAILY Qty: 30 RF: 11 bupropion HCl (smoking deter) 150 MG tablet extended release 12 hr 150 mg PO QAM Qty: 30 RF: 11 triamcinolone acetonide 15 GM cream 1 appful Topical BID PRNQty: 30 RF: 0 ipratropium-albuterol 0.5 mg-3 mg(2.5 mg base)/3 mL solution for nebulization 3 ml IH QID MDD 4 nebs Qty: 180 RF: 3 aspirin 325 MG tablet 325 mg PO DAILY Qty: 0 RF: 0 Discharge Instructions Instructions: Cyclobenzaprine (By mouth), Lidocaine Patch (On the skin), Low Back Strain (ED), Back Pain (ED), Lower Back Exercises (ED) Additional Instructions: You may take 600 mg of ibuprofen 3 times a day as needed for pain. Please return immediately to the emergency department if you develop any new or worsening symptoms or if you become otherwise concerned. It is extremely important that you make an appointment to be seen by your primary care doctor within the next 1-2 weeks and follow-up for this visit. Referrals: Alphonso Murphy [Primary Care Provider] - Discharge Data Discharge Date/Time-TO BE ENTERED AT DEPARTURE: 07/20/18 13:15 Medical Decision Making Radha Masterson is a 63-year-old woman with a history of COPD and morbid obesity presenting to the emergency department with 5 days of low back pain without any bowel/bladder changes or any neurologic symptoms. On exam she has diffuse tenderness of the lumbar spine over the vertebrae and paraspinals. She has a normal neurologic exam. Exam/history is not consistent with cauda equina syndrome, epidural abscess, epidural hematoma, other cord compression, acute aortic pathology. Plan for Lidoderm patch, Flexeril, ibuprofen, and outpatient follow-up with her PCP. Lengthy discussion with patient regarding return to emergency department precautions and importance of outpatient follow-up with her PCP. She is amenable to the plan. Medical Records Medical records reviewed: Yes I reviewed the patient's medical records. HPI General Mode of arrival: wheelchair. Date/Time Provider Initiated Documentation: 07/20/18 11:39. Limitations to Documentation: no limitations. Information obtained by: patient, RN notes reviewed and old records reviewed. HPI Narrative: Radha Masterson is a 63-year-old woman with history of COPD, morbid obesity with BMI greater than 70 presenting to the emergency department with low back pain. Patient reports that for 5 days ago she developed pain in the middle of her lower back. There was no trauma or other inciting event. Patient reports that she normally uses a wheelchair for most of the day but does walk for a few steps with a walker at home. She reports that she has not been able to use the walker secondary to her back pain. She denies any other new concurrent symptoms. She has no other pain, no new shortness of breath, no numbness/tingling/weakness, no change in her urinary or bowel functions. Patient reports that it has been taking her 5 minutes to get out of bed in the morning secondary to the pain. No recent illnesses, has been eating and drinking as usual. Related Data Home Medications Medication Instructions Recorded Confirmed ascorbic acid (vitamin C) 1,000 mg PO DAILY 11/25/12 07/20/18 inhalational spacing device #1 inhaler 12/21/13 07/20/18 [Aerochamber Mini] Bipap 5 l IN DIRECTED 07/23/14 07/20/18 Oxygen 2 l INTRANASAL DIRECTED 12/24/14 07/20/18 aspirin 325 mg PO DAILY #0 tab-cap 06/22/15 07/20/18 guaifenesin [Mucinex] 1 - 2 tab PO Q12H PRN #30 tab-cap 06/26/15 07/20/18 clotrimazole 45 gm TOPICAL BID prn #45 gm 03/02/17 07/20/18 nystatin (bulk) 1 applic TOPICAL BID PRN #60 gm 03/02/17 07/20/18 albuterol sulfate [ProAir HFA] 1 - 2 puff INHALATION Q6H PRN #1 12/28/17 07/20/18 inhaler bupropion HCl (smoking deter) 150 mg PO QAM #30 tab-cap 12/28/17 07/20/18 citalopram [Celexa] 20 mg PO DAILY #30 tab-cap 12/28/17 07/20/18 fluticasone [Flonase Allergy 1 spray NS DAILY #1 canister 12/28/17 07/20/18 Relief] gabapentin 2 cap PO BID #60 tab-cap 12/28/17 07/20/18 magnesium chloride [Mag 64] 64 mg PO DAILY #30 tab-cap 12/28/17 07/20/18 potassium chloride 2 tab-cap PO BID #180 tab-cap 12/28/17 07/20/18 silver sulfadiazine 1 applic TOPICAL BID PRN #60 gm 12/28/17 07/20/18 triamcinolone acetonide 1 appful TOPICAL BID PRN #30 gm 12/28/17 07/20/18 ipratropium-albuterol 0.5 mg-3 3 ml IH QID #180 ml MDD 4 nebs 18 07/20/18 mg(2.5 mg base)/3 mL nebulization soln cyclobenzaprine 10 mg PO TID #9 tab 07/20/18 lidocaine 1 patch TP DAILY #15 each 07/20/18 Previous Rx's Medication Instructions Recorded aspirin 325 mg PO DAILY #0 tab-cap 06/22/15 albuterol sulfate [ProAir HFA] 1 - 2 puff INHALATION Q6H PRN #1 12/28/17 inhaler bupropion HCl (smoking deter) 150 mg PO QAM #30 tab-cap 12/28/17 citalopram [Celexa] 20 mg PO DAILY #30 tab-cap 12/28/17 fluticasone [Flonase Allergy 1 spray NS DAILY #1 canister 12/28/17 Relief] gabapentin 2 cap PO BID #60 tab-cap 12/28/17 magnesium chloride [Mag 64] 64 mg PO DAILY #30 tab-cap 12/28/17 potassium chloride 2 tab-cap PO BID #180 tab-cap 12/28/17 ipratropium-albuterol 0.5 mg-3 3 ml IH QID #180 ml MDD 4 nebs 06/20/18 mg(2.5 mg base)/3 mL nebulization soln cyclobenzaprine 10 mg PO TID #9 tab 07/20/18 lidocaine 1 patch TP DAILY #15 each 07/20/18 Allergies Allergy/AdvReac Type Severity Reaction Status Date / Time hydrocodone Allergy Severe ITCHING Unverified 06/30/18 15:33 morphine Allergy Mild PRURITIS Unverified 06/30/18 15:33 oxycodone Allergy Mild ITCHING Unverified 06/30/18 15:33 General REUBEN: 1 Review of Systems Review of Systems Constitutional: denies fevers Eyes: denies eye pain ENT: denies facial pain, dental pain, sore throat Cardiovascular: denies chest pain, edema Respiratory: denies SOB, cough GI: denies abdominal pain, vomiting, diarrhea, constipation : denies flank pain, urinary hesitancy/rentention, incontinence MSK: reports back pain, denies neck pain, arthralgias, myalgias Skin: denies rash Neuro: denies headaches, lightheadedness, weakness, n/t PFSH Sensorineural hearing loss, bilateral (Chronic 08/29/13) Morbid obesity (Chronic 04/05/13) Knee pain, bilateral (Chronic 07/23/14) Goiter, nontoxic, 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/14) Chronic obstructive lung disease (Chronic) Depressive disorder (Chronic) Obstructive sleep apnea syndrome (Chronic) Chronic headaches (Chronic) Urinary incontinence (Chronic) Recurrent UTI (Chronic) Hypercapnic respiratory failure (Resolved) Right ventricular dysfunction (Chronic) Morbid obesity with BMI of 70 and over, adult (Chronic) Pulmonary embolism (Resolved) Family History Mother Diabetes Personal history of malignant neoplasm Father Personal history of malignant neoplasm Grandfather No problems noted. Grandfather No problems noted. Grandmother No problems noted. Grandmother No problems noted. History of Surgical Procedure (Chronic) Fasciotomy, Foot (~1996) Replacement of total knee joint Social History Smoking/Tobacco Use Status: Former Tobacco Use Exam Narrative Exam Narrative: Constitutional: well and [id number], pleasant, conversing normally, morbidly obese HENT: head atraumatic, normocephalic normal inspection, mucous membranes moist Eyes: conjunctiva normal, sclera normal, pupils 3mm b/l Neck: no stridor, normal ROM, trachea midline Chest: normal inspection Resp: normal work of breathing, LCTAB Cardio: normal rate, normal rhythm, no murmur appreciated Back: normal inspection, no rash, diffuse tenderness to palpation over the lumbar vertebrae and paraspinals bilaterally Skin: warm, dry, normal color, no rash Neuro: alert, not altered, grossly non-focal, normal tone, motor 5 out of 5 bilateral lower extremities, sensation intact bilateral lower extremities Psych: normal mood, normal affect, normal behavior
[2018-07-20] MEDS: Ibuprofen 600 MG TAB PO (13:03)
[2018-07-20] MEDS: Cyclobenzaprine 10 MG TAB PO (13:03)
[2018-07-20] MEDS: Lidocaine 5% Patch 1 PATCH TP (13:05)
[2018-07-20 13:09] VITALS: PULSE 88; RESP 18; TEMP 37; O2SAT 94
== END 2018-07-20 13:15 | disposition home or self-care (01) ==
PROVIDERS: Emergency Provider Student in an Organized Health Care Education/Training Program; PCP Family Medicine
DX: M54.5 Low back pain (principal); J44.9 Chronic obstructive pulmonary disease, unspecified; Z87.891 Personal history of nicotine dependence
CPT/HCPCS: 99283

== ENCOUNTER 2018-11-29 09:20 | Inpatient (IN) | payer MEDICARE, MEDICAID, SELFPAY ==
[2018-11-29] VITALS (118 sets, daily range): BP systolic 97–164; BP diastolic 51–137; PULSE 57–113; RESP 4–38; TEMP 36.5–37.3; O2SAT 84–100
[2018-11-29] MEDS: methylPREDNISolone SUCC 125 MG VIAL (09:33)
[2018-11-29] MEDS: Albuterol/Ipratropium 3 ML UPD VIAL ×2 (09:35→10:34)
--- NOTE | 2018-11-29 09:35 | ED.GENADUL_ITS ---
Discharge Plan Disposition Patient Disposition: [facility] INPATIENT Condition: Serious Discharge Details Chief Complaint: SOB Clinical Impression: COPD exacerbation, Community acquired pneumonia, Acute respiratory distress Primary Care Provider: Alphonso Murphy ED Provider: Raleigh Mcfadden Home Meds and New Rx's Prescriptions: No Action ascorbic acid (vitamin C) 1,000 MG tablet 1,000 mg PO DAILY RF: 0 Aerochamber Mini 1 EACH spacer 1 ea Inhalation PRN Qty: 1 RF: 0 BiPAP Inhalation Gas 5 l IN DIRECTED RF: 0 oxygen Inhalation 2 l Intranasal DIRECTED RF: 0 guaifenesin [Mucinex] 600 MG tablet extended release 12hr 1 - 2 tab PO Q12H PRN Qty: 30 RF: 2 clotrimazole 45 GM cream 45 gm Topical BID prn Qty: 45 RF: 2 nystatin (bulk) 1 EACH powder 1 applic Topical BID PRN Qty: 60 RF: 2 silver sulfadiazine 20 GM cream 1 applic Topical BID PRNQty: 60 RF: 2 potassium chloride 10 MEQ capsule, extended release 2 tab-cap PO BID Qty: 180 RF: 4 citalopram [Celexa] 20 MG tablet 20 mg PO DAILY Qty: 30 RF: 11 gabapentin 100 MG capsule 2 cap PO BID Qty: 60 RF: 11 albuterol sulfate [ProAir HFA] 8.5 GM HFA aerosol inhaler 1 - 2 puff Inhalation Q6H PRN Qty: 1 RF: 11 fluticasone propionate [Flonase Allergy Relief] 9.9 ML spray,suspension 1 spray NS DAILY Qty: 1 RF: 2 magnesium chloride [Mag 64] 64 MG tablet,delayed release (DR/EC) 64 mg PO DAILY Qty: 30 RF: 11 bupropion HCl (smoking deter) 150 MG tablet extended release 12 hr 150 mg PO QAM Qty: 30 RF: 11 triamcinolone acetonide 15 GM cream 1 appful Topical BID PRNQty: 30 RF: 0 ipratropium-albuterol 0.5 mg-3 mg(2.5 mg base)/3 mL solution for nebulization 3 ml IH QID MDD 4 nebs Qty: 180 RF: 3 aspirin 325 MG tablet 325 mg PO DAILY Qty: 0 RF: 0 Medical Decision Making This is a pleasant 63-year-old female with a past medical history of COPD, morbid obesity, who presents today for evaluation of severe respiratory distress. Patient states that over the last 2-3 days she has been progressively short of breath with cough and wheeze, initially helped by her breathing treatments, but no longer helping. She has been taking her nebulizers every 3 hours, she is normally on 2 L of home oxygen but upon arrival she was on 5. Conversationally dyspneic,, unable to get out more than 1 word at a time. Gasping for breath. Exam demonstrates diffuse wheezes throughout, and limited breath sounds. She denies any history of [place], she denies any current chest pain. Clinically the patient looks appears like a severe COPD exacerbation which we will start with treatment, however cardiac etiology is certainly on the differential. PE appears less likely with her lung findings and her current clinical disposition. 1:18 PM Patient's laboratory workup has returned, mild white count, mild left shift, no bandemia, renal function stable, troponin normal, EKG unchanged, VBG demonstrates no acidosis, no significant CO2 retention. D-dimer is notably elevated, and cannot be adjusted to age. Chest x-ray is unremarkable, CT angios demonstrates no evidence of PE but does demonstrate evidence of infiltrate her Dr. Pretty of radiology. No other acute process. Azithromycin was initially added on her arrival, now with the evidence of infiltrate Rocephin will also be added she has not been admitted in the last 90 days. We did perform a trial off of BiPAP and the patient did very poorly with this. Currently she is stable on the BiPAP. Diagnosis severe COPD exacerbation requiring magnesium, Solu-Medrol, duo nebs, and BiPAP in conjunction with community-acquired pneumonia peer I contacted Dr Manjarrez, he agrees to the assessment and plan, I have extensively reviewed the treatment plan with the patient. I have addressed all patient concerns at this time. I have also discussed the plan with the admitting physician and they agree with the current assessment and plan and have agreed to assume responsibility for the patient. All parties demonstrate verbal understanding and agreement with our assessment and plan at this time. EKG 9: 32 Rate 101, ND 170, QTc 469, QRS 105, sinus tachycardia, notable interference and artifact secondary to respiratory distress and BiPAP, no significant ST elevations or depressions, no significant T wave inversions. HPI General Date/Time Provider Initiated Documentation: 04/17/19 09:27 . HPI Narrative: This is a 63-year-old female with a past medical history of morbid obesity, COPD, pulmonary embolism not on blood thinners asthma, who presents today in acute respiratory distress. Patient states that over the last 2-3 days she has been short of breath with notable cough with yellow sputum. She has been taking her nebulizer every 3 hours this is not been helping as of late although it did initially. She is normally on 2 L of home oxygen, however she has been using 5 L over the last day and a half. She denies any chest pain, pleuritic chest pain, headache, arm, neck, or shoulder pain. She denies any abdominal pain vomiting, or diarrhea. She denies any other complaints at this time. Upon arrival to the ER she was conversationally dyspneic, unable to speak, gasping for breath. Related Data Home Medications Medication Instructions Recorded Confirmed ascorbic acid (vitamin C) 1,000 mg PO DAILY 11/25/12 11/29/18 Aerochamber Mini #1 inhaler 12/21/13 11/29/18 Bipap 5 l IN DIRECTED 07/23/14 11/29/18 Oxygen 2 l INTRANASAL DIRECTED 12/24/14 11/29/18 aspirin 325 mg PO DAILY #0 tab-cap 06/22/15 11/29/18 guaifenesin [Mucinex] 1 - 2 tab PO Q12H PRN #30 tab-cap 06/26/15 11/29/18 clotrimazole 45 gm TOPICAL BID prn #45 gm 03/02/17 11/29/18 nystatin (bulk) 1 applic TOPICAL BID PRN #60 gm 03/02/17 11/29/18 albuterol sulfate [ProAir HFA] 1 - 2 puff INHALATION Q6H PRN #1 12/28/17 11/29/18 inhaler bupropion HCl (smoking deter) 150 mg PO QAM #30 tab-cap 12/28/17 11/29/18 citalopram [Celexa] 20 mg PO DAILY #30 tab-cap 12/28/17 11/29/18 fluticasone propionate [Flonase 1 spray NS DAILY #1 canister 12/28/17 11/29/18 Allergy Relief] gabapentin 2 cap PO BID #60 tab-cap 12/28/17 11/29/18 magnesium chloride [Mag 64] 64 mg PO DAILY #30 tab-cap 18 11/29/18 potassium chloride 2 tab-cap PO BID #180 tab-cap 18 11/29/18 silver sulfadiazine 1 applic TOPICAL BID PRN #60 gm 12/28/17 11/29/18 triamcinolone acetonide 1 appful TOPICAL BID PRN #30 gm 12/28/17 11/29/18 ipratropium-albuterol 0.5 mg-3 3 ml IH QID #180 ml MDD 4 nebs 06/20/18 11/29/18 mg(2.5 mg base)/3 mL nebulization soln Previous Rx's Medication Instructions Recorded aspirin 325 mg PO DAILY #0 tab-cap 06/22/15 albuterol sulfate [ProAir HFA] 1 - 2 puff INHALATION Q6H PRN #1 12/28/17 inhaler bupropion HCl (smoking deter) 150 mg PO QAM #30 tab-cap 12/28/17 citalopram [Celexa] 20 mg PO DAILY #30 tab-cap 12/28/17 fluticasone propionate [Flonase 1 spray NS DAILY #1 canister 12/28/17 Allergy Relief] gabapentin 2 cap PO BID #60 tab-cap 12/28/17 magnesium chloride [Mag 64] 64 mg PO DAILY #30 tab-cap 12/28/17 potassium chloride 2 tab-cap PO BID #180 tab-cap 12/28/17 ipratropium-albuterol 0.5 mg-3 3 ml IH QID #180 ml MDD 4 nebs 06/20/18 mg(2.5 mg base)/3 mL nebulization soln Allergies Allergy/AdvReac Type Severity Reaction Status Date / Time hydrocodone Allergy Severe ITCHING Unverified 11/29/18 13:11 morphine Allergy Mild PRURITIS Unverified 11/29/18 13:11 oxycodone Allergy Mild ITCHING Unverified 11/29/18 13:11 General REUBEN: 1 Review of Systems Review of Systems All systems reviewed & are unremarkable except as noted in HPI and below PFSH Medical History Varicose veins of lower extremity (Chronic) Low back pain with sciatica (Chronic 05/03/14) Sensorineural hearing loss, bilateral (Chronic 08/29/13) Morbid obesity (Chronic 04/05/13) Knee pain, bilateral (Chronic 07/23/14) Goiter, nontoxic, 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/14) Chronic obstructive lung disease (Chronic) Depressive disorder (Chronic) Insomnia with sleep apnea (Chronic) Obstructive sleep apnea syndrome (Chronic) Chronic headaches (Chronic) Urinary incontinence (Chronic) Recurrent UTI (Chronic) Hypercapnic respiratory failure (Resolved) Right ventricular dysfunction (Chronic) Pulmonary embolism (Resolved) Surgical History History of Surgical Procedure (Chronic) Fasciotomy, Foot (~1996) Replacement of total knee joint Social History Smoking/Tobacco Use Status: Former Tobacco Use Alcohol Intake: never Drug use: Never Do you feel safe in your relationship?: Yes Exam Narrative Exam Narrative: 1.Const: Morbidly obese, acute respiratory distress 2.Eyes: PERRL, no conjunctival injection, and symmetrical lids. 3.ENT: Atraumatic external nose and ears. Moist MM. Neck: Symmetric, trachea midline, No thyromegaly. 4.CVS: +S1/S2, No murmurs or gallops. Peripheral pulses 2+ and equal in all extremities. Brisk capillary refill in all extremities. 5.RESP: Notably labored respiratory effort, severe respiratory gasping. Wheezes throughout, reduced breath sounds throughout, minimal crackles in bases. 6.GI: Soft, Nontender/Nondistended, No hepatosplenomegaly. No guarding or rebound. 7.MSK: Normocephalic/Atraumatic, Extremities w/o deformity or ttp No cyanosis or clubbing, Normal movement of all extremities. No significant calf tenderness, morbid obesity makes fluid assessment difficult. Mild pitting edema bilaterally 8.Skin: Warm, Dry. No rashes or lesions. 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 Sensation grossly intact, no focal neurologic deficits. 10.Psych: (AAO) x3. Appropriate mood and affect
[2018-11-29 09:41] LABS: BE (Venous) 3.1 mmol/L (-3-3); HCO3 (Venous) 28 mmol/L (22-28); O2 Sat (Venous) 82 % (70-80); TCO2 (Venous) 25 mmol/L (22-29); pCO2 (Venous) 45 mm/Hg (34-47); pO2 (Venous) 45 mm/Hg (28-44)
--- NOTE | 2018-11-29 09:42 | DI.RAD_ITS ---
SYMPTOM/DIAGNOSIS: SEVERE SOB, H/O COPD PORTABLE AP CHEST: The lungs are free of gross infiltrate. The heart is within normal limits in size. There is no evidence of overt congestive failure or pneumonia.
[2018-11-29 09:43] LABS: Abs Immature Grans 0.03 k/cumm (0.0-0.09); Absolute Basophil Count 0.02 k/cumm (0.0-0.2); Absolute Eosinophil Count 0.29 k/cumm (0.0-0.7); Absolute Neutrophil Count 8.32 k/cumm (1.2-6.7); Basophils % 0.2; Eosinophils % 2.5; HCT 44.1 % (36.0-46.0); HGB 14.4 g/dL (12.0-15.5); Immature Grans % 0.3; Lymphocytes % 18.1; Mean Corp. HGB Concentration 32.7 g/dL (32.0-36.0); Mean Corpuscular Volume 85.6 fL (80-95); Mean Platelet Volume 10.9 fL (8.0-11.0); Neutrophils % 72.9; Platelet Count 297 x1000/uL (130-400); RBC 5.15 m/cumm (4.00-5.20); RBC Distribution Width 14.4 % (11.7-14.6); White Blood Cell Count 11.41 k/cumm (4.4-10.8)
[2018-11-29 09:45] LABS: Absolute Lymphocyte Count 2.07 k/cumm (1.2-3.4); Absolute Monocyte Count 0.68 k/cumm (0.11-0.7)
[2018-11-29] MEDS: MAGNESIUM SULFATE 2 GM/50 ML BAG IVPB (09:49)
[2018-11-29 10:02] LABS: PTT Activated 25.3 sec (21.0-31.4); Prothrombin Time 9.8 sec (9.3-11.0)
[2018-11-29 10:10] LABS: ALT 29 U/L (12-78); AST 19 U/L (15-37); Albumin 3.1 g/dL (3.4-5.0); Alkaline Phosphatase 97 U/L (46-116); Anion Gap 7.7 mmol/L (3-11); BUN 18 mg/dL (7-18); Bilirubin, Total 1.2 mg/dL (0.2-1.0); CO2 28.3 mmol/L (21.0-32.0); Calcium 8.9 mg/dL (8.5-10.1); Chloride 101 mmol/L (98-107); Glucose 122 mg/dL (70-100); Magnesium 1.8 mg/dL (1.8-2.4); NT-proBNP 54 pg/mL; Potassium 3.8 mmol/L (3.5-5.1); Sodium 137 mmol/L (136-145); Total Protein 7.8 g/dL (6.4-8.2); Troponin I < 0.02 ng/mL (0.00-0.06)
[2018-11-29 11:05] LABS: D-Dimer 787 ng/mlFEU (<500)
--- NOTE | 2018-11-29 11:12 | DI.CT_ITS ---
SYMPTOMS/DIAGNOSIS: ELEVATED D-DIMER, H/O PE, SEVERE RESPIRATORY DISTRESS PE CT: CT angiography was performed with multi slice acquisition and multi planar and 3D reconstruction. The study was conducted according to the usual protocol with an intravenous administration of 100 cc of Omnipaque 350. The image quality is suboptimal due to the patient's body habitus. There are no gross central pulmonary emboli with nothing to suggest a saddle embolus or emboli in the main right or left pulmonary artery. The segmental branches are poorly seen. Note is made of a small bilateral pleural effusion. There are regions of increased density involving the lung bases, right more prominent than left, which could represent atelectasis or an acute pneumonitis. The heart is not enlarged. There is no pericardial effusion. There is no evidence of an aortic aneurysm or dissection. SUMMARY: Limited examination due to the patient's body habitus revealing no evidence of central pulmonary emboli. There are small bilateral pleural effusions and lower lobe densities, which could represent regions of infiltration and/or atelectasis.
[2018-11-29] MEDS: AZITHROMYCIN 500 MG in Normal Saline 250 ML 250 MG IVPB (11:40)
[2018-11-29] MEDS: Omnipaque 350 MG/ML 100 ML BTL IJ (12:07)
[2018-11-29] MEDS: cefTRIAXone 2 GM/50 ML BAG IVPB (12:55)
--- NOTE | 2018-11-29 14:06 | W.PM.HP.N ---
Date of service: 11/29/18 Time of Service: 14:07 Assessment and Plan (1) Pneumonia: Current visit: No Status: Acute Evidence of potential infiltrate vs. atelectasis by CT. Patient with only a minimal leukocytosis, but does have a history of COPD with current exacerbation, as well as a complaint of new cough - merits antibiotics. No recent hospitalization, and no report of recent antibiotic use. (2) Recurrent UTI: Current visit: No Status: Chronic Asymptomatic - will check a urinalysis given history of recurrent infections. (3) Obstructive sleep apnea syndrome: Current visit: No Status: Chronic Continue BiPAP therapy. (4) Chronic obstructive lung disease: Current visit: No Status: Chronic On baseline Home Oxygen. Continue antibiotics, initiate IV Steroids, and frequent Nebs. BiPAP as needed. Monitor. (5) DVT prophylaxis: Current visit: No Status: Acute SC Lovenox. (6) Advance directive on file: Current visit: No Status: Acute Full Code. History of Present Illness Chief Complaint: Dyspnea Narrative: 63 year old woman with a history significant for COPD and DAVID, being admitted from [facility] Emergency Department with a diagnosis of Pneumonia with 1 concurrent COPD Exacerbation. Mrs. Masterson has a past medical history significant for Oxygen Dependent COPD, Morbid Obesity with DAVID on BiPAP therapy, and Concurrent PHTN and RV Systolic Dysfunction. Her other history includes a Multinodular Goiter, Depression, Recurrent UTIs, and a history of PE in the past. She presented to the ED with respiratory distress. The patient reports onset of a cough 2 days ago, with resultant dyspnea that started suddently this morning. Upon presentation she was found to be hypoxic despite her supplemental O2, with wheezing by exam. Her labwork was significant for minimal leukocytosis, and her CT showed evidence of potential infiltrates vs. Atelectasis. She was referred for admission. Review of Systems Review of Systems All systems reviewed & are unremarkable except as noted in HPI and below [facility], LAT[facility] Medical History Varicose veins of lower extremity (Chronic) Low back pain with sciatica (Chronic 05/03/14) Sensorineural hearing loss, bilateral (Chronic 08/29/13) Morbid obesity (Chronic 04/05/13) Knee pain, bilateral (Chronic 07/23/14) Goiter, nontoxic, 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/14) Chronic obstructive lung disease (Chronic) Depressive disorder (Chronic) Insomnia with sleep apnea (Chronic) Obstructive sleep apnea syndrome (Chronic) Chronic headaches (Chronic) Urinary incontinence (Chronic) Recurrent UTI (Chronic) Hypercapnic respiratory failure (Resolved) Right ventricular dysfunction (Chronic) Pulmonary embolism (Resolved) Surgical History History of Surgical Procedure (Chronic) Fasciotomy, Foot (~1996) Replacement of total knee joint Social History Smoking/Tobacco Use Status: Former Tobacco Use Alcohol Intake: never Drug use: Never Do you feel safe in your relationship?: Yes Meds Home Medications Medication Instructions Recorded Confirmed Type ascorbic acid (vitamin C) 1,000 mg PO DAILY 11/25/12 11/29/18 History Aerochamber Mini #1 inhaler 12/21/13 11/29/18 History Bipap 5 l IN DIRECTED 07/23/14 11/29/18 History Oxygen 2 l INTRANASAL DIRECTED 12/24/14 11/29/18 History aspirin 325 mg PO DAILY #0 tab-cap 06/22/15 11/29/18 Rx guaifenesin [Mucinex] 1 - 2 tab PO Q12H PRN #30 tab-cap 06/26/15 11/29/18 History clotrimazole 45 gm TOPICAL BID prn #45 gm 03/02/17 11/29/18 History nystatin (bulk) 1 applic TOPICAL BID PRN #60 gm 03/02/17 11/29/18 History albuterol sulfate [ProAir HFA] 1 - 2 puff INHALATION Q6H PRN #1 12/28/17 11/29/18 Rx inhaler bupropion HCl (smoking deter) 150 mg PO QAM #30 tab-cap 12/28/17 11/29/18 Rx citalopram [Celexa] 20 mg PO DAILY #30 tab-cap 12/28/17 11/29/18 Rx fluticasone propionate [Flonase 1 spray NS DAILY #1 canister 12/28/17 11/29/18 Rx Allergy Relief] gabapentin 2 cap PO BID #60 tab-cap 12/28/17 11/29/18 Rx magnesium chloride [Mag 64] 64 mg PO DAILY #30 tab-cap 12/28/17 11/29/18 Rx potassium chloride 2 tab-cap PO BID #180 tab-cap 12/28/17 11/29/18 Rx silver sulfadiazine 1 applic TOPICAL BID PRN #60 gm 12/28/17 11/29/18 History triamcinolone acetonide 1 appful TOPICAL BID PRN #30 gm 12/28/17 11/29/18 History ipratropium-albuterol 0.5 mg-3 3 ml IH QID #180 ml MDD 4 nebs 06/20/18 11/29/18 Rx mg(2.5 mg base)/3 mL nebulization soln Allergies Allergy/AdvReac Type Severity Reaction Status Date / Time hydrocodone Allergy Severe ITCHING Unverified 11/29/18 13:11 morphine Allergy Mild PRURITIS Unverified 11/29/18 13:11 oxycodone Allergy Mild ITCHING Unverified 11/29/18 13:11 Exam Narrative Exam Narrative: General: Patient appears more comfortable currently on BiPAP, AAOX3. Able to converse but appears dyspneic. Neck: Supple CV: Regular, tachycardic, S1S2, distant heart sounds. Pulmonary: Bilateral, diffuse wheezing but with good air entry. Minimal bibasilar crackles. Exam limited by body habitus. Abdomen: + Bowel Sounds, soft, nontender, nondistended but obese in contour. Vascular: Non-pitting, equal bilateral lower extremity edema Neurologic: CN II-XII grossly intact. No focal deficits. Psych: Normal mood and affect. Results Imaging Additional studies: Exam(s) a RAD:XR portable chest AP SYMPTOM/DIAGNOSIS: SEVERE SOB, H/O COPD PORTABLE AP CHEST: The lungs are free of gross infiltrate. The heart is within normal limits in size. There is no evidence of overt congestive failure or pneumonia. Exam(s) a CT:CT chest PE CTA SYMPTOMS/DIAGNOSIS: ELEVATED D-DIMER, H/O PE, SEVERE RESPIRATORY DISTRESS PE CT: CT angiography was performed with multi slice acquisition and multi planar and 3D reconstruction. The study was conducted according to the usual protocol with an intravenous administration of 100 cc of Omnipaque 350. The image quality is suboptimal due to the patient's body habitus. There are no gross central pulmonary emboli with nothing to suggest a saddle embolus or emboli in the main right or left pulmonary artery. The segmental branches are poorly seen. Note is made of a small bilateral pleural effusion. There are regions of increased density involving the lung bases, right more prominent than left, which could represent atelectasis or an acute pneumonitis. The heart is not enlarged. There is no pericardial effusion. There is no evidence of an aortic aneurysm or dissection. SUMMARY: Limited examination due to the patient's body habitus revealing no evidence of central pulmonary emboli. There are small bilateral pleural effusions and lower lobe densities, which could represent regions of infiltration and/or atelectasis. Labs : 11/29/18 09:25 11/29/18 09:25 Laboratory Results - last 24 hr 11/29/18 11/29/18 11/29/18 09:25 09:25 09:25 WBC 11.41 H RBC 5.15 Hgb 14.4 Hct 44.1 MCV 85.6 MCH 28.0 MCHC 32.7 RDW 14.4 Plt Count 297 MPV 10.9 Immature Gran % 0.3 Neutrophils % 72.9 Lymphocytes % 18.1 Monocytes % 6.0 Eosinophils % 2.5 Basophils % 0.2 Absolute Neutrophils 8.32 H Absolute Lymphocytes 2.07 Absolute Monocytes 0.68 Absolute Eosinophils 0.29 Absolute Basophils 0.02 PT 9.8 INR 1.0 APTT 25.3 D-Dimer VBG pH VBG pCO2 VBG pO2 VBG HCO3 VBG Total CO2 VBG O2 Saturation VBG Base Excess Sodium 137 Potassium 3.8 Chloride 101 Carbon Dioxide 28.3 Anion Gap 7.7 BUN 18 Creatinine 0.70 Estimated GFR/1.73 m2 >= 60.00 Glucose 122 H Calcium 8.9 Magnesium 1.8 Total Bilirubin 1.2 H AST 19 ALT 29 Alkaline Phosphatase 97 Troponin I < 0.02 NT-Pro-B Natriuret Pep 54 Total Protein 7.8 Albumin 3.1 L 11/29/18 11/29/18 09:25 09:25 WBC RBC Hgb Hct MCV MCH MCHC RDW Plt Count MPV Immature Gran % Neutrophils % Lymphocytes % Monocytes % Eosinophils % Basophils % Absolute Neutrophils Absolute Lymphocytes Absolute Monocytes Absolute Eosinophils Absolute Basophils PT INR APTT D-Dimer 787 H VBG pH 7.40 VBG pCO2 45 VBG pO2 45 H VBG HCO3 28 VBG Total CO2 25 VBG O2 Saturation 82 H VBG Base Excess 3.1 H Sodium Potassium Chloride Carbon Dioxide Anion Gap BUN Creatinine Estimated GFR/1.73 m2 Glucose Calcium Magnesium Total Bilirubin AST ALT Alkaline Phosphatase Troponin I NT-Pro-B Natriuret Pep Total Protein Albumin Last Vital Signs Temp 36.5 C 11/29/18 09:28 Pulse 106 H 11/29/18 13:24 Resp 30 H 11/29/18 13:24 BP 131/58 L 11/29/18 13:01 Pulse Ox 94 L 11/29/18 13:24
[2018-11-29] MEDS: Magnesium Oxide 400 MG TAB PO (15:12)
[2018-11-29] MEDS: Potassium Chloride 20 MEQ TABCR PO (15:12)
[2018-11-29] MEDS: Albuterol/Ipratropium 3 ML UPD VIAL UPD ×3 (15:22→22:06)
[2018-11-29] MEDS: methylPREDNISolone SUCC 125 MG VIAL 60 MG IVP (17:25)
[2018-11-29] MEDS: Heparin 5,000 UNITS/ML VIAL 5000 UNITS SC ×2 (17:27→23:45)
[2018-11-29] MEDS: Gabapentin 100 MG CAP 200 MG PO (20:21)
[2018-11-29] MEDS: Potassium Chloride 10 MEQ CAPCR 20 MEQ PO (20:21)
[2018-11-30] VITALS (76 sets, daily range): BP systolic 112–145; BP diastolic 50–67; PULSE 80–103; RESP 1–32; TEMP 35.6–36.6; O2SAT 88–97
[2018-11-30] MEDS: Albuterol/Ipratropium 3 ML UPD VIAL UPD ×6 (02:04→23:11)
[2018-11-30] MEDS: methylPREDNISolone SUCC 125 MG VIAL 60 MG IVP ×3 (02:04→17:21)
[2018-11-30] MEDS: Normal Saline Flush 10 ML SYR ×3 (02:12→17:23)
[2018-11-30 07:23] LABS: Abs Immature Grans 0.02 k/cumm (0.0-0.09); Absolute Basophil Count 0.01 k/cumm (0.0-0.2); Absolute Eosinophil Count 0.04 k/cumm (0.0-0.7); Absolute Lymphocyte Count 1.42 k/cumm (1.2-3.4); Absolute Monocyte Count 0.57 k/cumm (0.11-0.7); Absolute Neutrophil Count 11.31 k/cumm (1.2-6.7); Basophils % 0.1; Eosinophils % 0.3; HCT 40.7 % (36.0-46.0); HGB 13.4 g/dL (12.0-15.5); Immature Grans % 0.1; Lymphocytes % 10.6; Mean Corp. HGB Concentration 32.9 g/dL (32.0-36.0); Mean Corpuscular Hemoglobin 28.2 pg (27.0-33.0); Mean Corpuscular Volume 85.7 fL (80-95); Mean Platelet Volume 11.2 fL (8.0-11.0); Monocytes % 4.3; Neutrophils % 84.6; Platelet Count 275 x1000/uL (130-400); RBC 4.75 m/cumm (4.00-5.20); RBC Distribution Width 14.5 % (11.7-14.6); White Blood Cell Count 13.37 k/cumm (4.4-10.8)
[2018-11-30 07:24] LABS: Anion Gap 8.7 mmol/L (3-11); BUN 19 mg/dL (7-18); CO2 27.3 mmol/L (21.0-32.0); CREATININE 0.65 mg/dL (0.55-1.02); Calcium 8.7 mg/dL (8.5-10.1); Chloride 102 mmol/L (98-107); Glucose 156 mg/dL (70-100); Magnesium 2.2 mg/dL (1.8-2.4); Sodium 138 mmol/L (136-145)
[2018-11-30] MEDS: Fluticasone NASAL SPRAY 16 GM BTL NS (09:16)
[2018-11-30] MEDS: Heparin 5,000 UNITS/ML VIAL 5000 UNITS SC ×3 (09:16→23:11)
[2018-11-30] MEDS: Potassium Chloride 10 MEQ CAPCR 20 MEQ PO ×2 (09:18→19:43)
[2018-11-30] MEDS: Aspirin 325 MG TAB PO (09:19)
[2018-11-30] MEDS: buPROPion-CR 150 MG TABCR PO (09:19)
[2018-11-30] MEDS: Ascorbic Acid 500 MG TAB 1000 MG PO (09:19)
[2018-11-30] MEDS: Magnesium Chloride 64 MG TABCR PO (09:20)
[2018-11-30] MEDS: Gabapentin 100 MG CAP 200 MG PO ×2 (09:20→19:43)
[2018-11-30] MEDS: AZITHROMYCIN 500 MG in Normal Saline 250 ML 250 MG IVPB (12:09)
--- NOTE | 2018-11-30 12:39 | PHARADMIT ---
Addendum entered by Rajat Forde III 12/05/18 15:59: Pharmacy Note Subjective MD described bad cough sounding worse. Transitioned from IV steroids to PO. Objective VS-OK K+4.4 Mag-2.2 SCr-0.70 WBC-13.51 H&H,Plts-OK Wgt-189.2 kg BM yesterday Assessment PO Azithromycin, & Ceftin Plan Patient recently lost her son and is still grieving, needs time to improve Addendum entered by Rajat Forde III 12/01/18 13:12: Pharmacy Note Subjective CT shows possible infiltrate vs atelectasis. COPD patient with new cough IV ABX continue Objective VS-OK K+4.7 Mag-2.3 WBC-13.11 (steady) H&H,Plts-OK Assessment Steroid tapered, Azithromycin & Rocephin continue. Plan MD noted that patient needs time to improve. Original Note: Admission Pharmacy Clinical Review COPD Exacerbation Code Status Full Code Current Weight Wgt-189.5 kg Renally Cleared and Narrow Therapeutic Index Meds CrCl~ 60.31 mL/min Meds-OK QTc Value / Action Taken QTc-469 (Azithromycin, Celexa,Lasix) BP Control, Fever BP- 140/62 Tmax- 36.5C Electrolytes reviewed Na- 138 K+4.0 Mag-2.2 DVT Prophylaxis Heparin SC, ASA Opiate Usage / Scheduled Bowel Regimen Ordered NO YEs Plt/SCr for Heparin / Enoxaparin Plts- 275 SCr- 0.65 INR for Warfarin INR-1.0 H/H stable, WBC/Bands H&H- 13.4/40.7 WBC- 13.37 Antibiotic appropriateness Azithromycin, Rocephin Cultures and Sensitivities Sput-rare growth Surgical ABX d/c within 24 hr NA DM control / Insulin Dosing BG-156 Heart Failure (Check EF%) (TONE's, B-Block, Diuretics) none IV to PO Switch No Home Meds Reviewed Yes Home Meds Not Ordered Lasix Comments Citalopram on hold while taking Azithromycin
[2018-11-30 13:06] LABS: Bilirubin Negative (Negative); Blood Negative (Negative); Clarity Sl Cloudy; Glucose Negative (Negative); Ketones Negative (Negative); Leukocyte Esterase Negative (Negative); Nitrite Negative (Negative); Urobilinogen 0.2 EU/dL (Up TO 0.2)
--- NOTE | 2018-11-30 13:06 | PGE_ITS ---
Date of Service Date of service: 11/30/18 Time of Service: 12:59 Assessment and Plan (1) Pneumonia: Current visit: No Status: Acute Evidence of potential infiltrate vs. atelectasis by CT. Patient with only a minimal leukocytosis, but does have a history of COPD with current exacerbation, as well as a complaint of new cough - merits antibiotics. No recent hospitalization, and no report of recent antibiotic use. Continue CTx/Azithromycin Day #2. (2) Recurrent UTI: Current visit: No Status: Chronic Asymptomatic - will check a urinalysis given history of recurrent infections. (3) Obstructive sleep apnea syndrome: Current visit: No Status: Chronic Continue BiPAP therapy. (4) Chronic obstructive lung disease: Current visit: No Status: Chronic On baseline Home Oxygen. Continue antibiotics, IV Steroids, and frequent Nebs. BiPAP as needed. Monitor. (5) DVT prophylaxis: Current visit: No Status: Acute SC Lovenox. (6) Advance directive on file: Current visit: No Status: Acute Full Code. Subjective Interval history since last seen: 63 year old woman with a history significant for COPD and DAVID, admitted on 11/29 from [facility] Emergency Department with a diagnosis of Pneumonia with concurrent COPD Exacerbation. Mrs. Masterson has a past medical history significant for Oxygen Dependent COPD, Morbid Obesity with DAVID on BiPAP therapy, with Concurrent PHTN and RV Systolic Dysfunction. Her other history includes a Multinodular Goiter, Depression, Recurrent UTIs, and a history of PE in the past. She presented to the ED on the afternoon of admission with respiratory distress. The patient reports onset of a cough 2 days prior, with resultant dyspnea that started suddently on the morning of admission. Upon presentation she was found to be hypoxic despite her supplemental O2, with wheezing by exam. Her labwork was significant for minimal leukocytosis, and her CT showed evidence of potential infiltrates vs. Atelectasis. She was referred for admission. Following admission Mrs. Masterson was initiated on antibiotic therapy and steroids, and reports some improvement in her symptoms this morning. No overnight events reported. She remains afebrile. Exam Narrative Exam Narrative: General: Patient appears comfortable currently on BiPAP, AAOX3. Able to converse with improved dyspnea. Neck: Supple CV: Regular, tachycardic, S1S2, distant heart sounds. Pulmonary: Bilateral, diffuse wheezing vastly improved. Good air entry again noted. Minimal bibasilar crackles. Exam limited by body habitus. Abdomen: + Bowel Sounds, soft, nontender, nondistended but obese in contour. Vascular: Non-pitting, equal bilateral lower extremity edema Psych: Normal mood and affect. Objective Objective Clinical Data: Abnormal lab results 11/30/18 11/30/18 Range/Units 06:30 06:30 WBC 13.37 H (4.4-10.8) k/cumm MPV 11.2 H (8.0-11.0) fL Absolute Neutrophils 11.31 H (1.2-6.7) k/cumm BUN 19 H (7-18) mg/dL Glucose 156 H (70-100) mg/dL Vital Signs Temperature 36.5 C 11/30/18 12:10 Temperature Source Temporal Artery Scan 11/30/18 12:10 Pulse 85 11/30/18 09:17 Pulse 89 11/30/18 12:00 Respiratory Rate 28 H 11/30/18 12:00 Respiratory Effort Incrsd Work of Breathing 11/30/18 12:10 Respiratory Depth Shallow 11/30/18 12:10 Respiratory Pattern Tachypnea 11/30/18 12:10 Blood Pressure 140/62 11/30/18 08:36 Blood Pressure Mean 80 11/30/18 08:36 Blood Pressure Position Supine 11/30/18 03:57 Pulse Oximetry 94 L 11/30/18 12:00 Oxygen Delivery Method Nasal Cannula 11/30/18 09:47 Oxygen Flow Rate 5 11/30/18 12:10 Fraction of Inspired Oxygen (FIO2) 30 11/29/18 13:24 Pain Level 0 11/30/18 12:10 Intake & Output 11/29/18 11/30/18 11/30/18 23:59 11:59 23:59 Intake Total 360 / 360 20 Output Total 425 / 425 700 / 700 Balance -65 / -65 -700 / -680 20 / -680 Weight 189.6 kg 189.5 kg Intake: IV 360 / 360 Output: Urine 425 / 425 700 / 700 Other: Urine Color Light Anay Yellow Light Anay Urine Appearance Cloudy Cloudy Sediment Urine Odor Normal Normal Comment Wears an incont. pant. Pt has not urinated for RN Stool Occult Blood Negative Stool Size Large Stool Characteristics Soft Formed Brown Voiding Methods Bedside Commode Bedside Commode Laboratory Results WBC 13.37 k/cumm (4.4-10.8) H 11/30/18 06:30 RBC 4.75 m/cumm (4.00-5.20) 11/30/18 06:30 Hgb 13.4 g/dL (12.0-15.5) 11/30/18 06:30 Hct 40.7 % (36.0-46.0) 11/30/18 06:30 MCV 85.7 fL (80-95) 11/30/18 06:30 MCH 28.2 pg (27.0-33.0) 11/30/18 06:30 MCHC 32.9 g/dL (32.0-36.0) 11/30/18 06:30 RDW 14.5 % (11.7-14.6) 11/30/18 06:30 Plt Count 275 x1000/uL (130-400) 11/30/18 06:30 MPV 11.2 fL (8.0-11.0) H 11/30/18 06:30 Immature Gran % 0.1 11/30/18 06:30 Neutrophils % 84.6 11/30/18 06:30 Lymphocytes % 10.6 11/30/18 06:30 Monocytes % 4.3 11/30/18 06:30 Eosinophils % 0.3 11/30/18 06:30 Basophils % 0.1 11/30/18 06:30 Absolute Neutrophils 11.31 k/cumm (1.2-6.7) H 11/30/18 06:30 Absolute Lymphocytes 1.42 k/cumm (1.2-3.4) 11/30/18 06:30 Absolute Monocytes 0.57 k/cumm (0.11-0.7) 11/30/18 06:30 Absolute Eosinophils 0.04 k/cumm (0.0-0.7) 11/30/18 06:30 Absolute Basophils 0.01 k/cumm (0.0-0.2) 11/30/18 06:30 PT 9.8 sec (9.3-11.0) 11/29/18 09:25 INR 1.0 (0.9-1.1) 11/29/18 09:25 APTT 25.3 sec (21.0-31.4) 11/29/18 09:25 D-Dimer 787 ng/mlFEU (<500) H 11/29/18 09:25 VBG pH 7.40 (7.32-7.43) 11/29/18 09:25 VBG pCO2 45 mm/Hg (34-47) 11/29/18 09:25 VBG pO2 45 mm/Hg (28-44) H 11/29/18 09:25 VBG HCO3 28 mmol/L (22-28) 11/29/18 09:25 VBG Total CO2 25 mmol/L (22-29) 11/29/18 09:25 VBG O2 Saturation 82 % (70-80) H 11/29/18 09:25 VBG Base Excess 3.1 mmol/L (-3-3) H 11/29/18 09:25 Sodium 138 mmol/L (136-145) 11/30/18 06:30 Potassium 4.0 mmol/L (3.5-5.1) 11/30/18 06:30 Chloride 102 mmol/L (98-107) 11/30/18 06:30 Carbon Dioxide 27.3 mmol/L (21.0-32.0) 11/30/18 06:30 Anion Gap 8.7 mmol/L (3-11) 11/30/18 06:30 BUN 19 mg/dL (7-18) H 11/30/18 06:30 Creatinine 0.65 mg/dL (0.55-1.02) 11/30/18 06:30 Estimated GFR/1.73 m2 >= 60.00 (mL/min/1.73m2) 11/30/18 06:30 Glucose 156 mg/dL (70-100) H 11/30/18 06:30 Calcium 8.7 mg/dL (8.5-10.1) 11/30/18 06:30 Magnesium 2.2 mg/dL (1.8-2.4) 11/30/18 06:30 Total Bilirubin 1.2 mg/dL (0.2-1.0) H 11/29/18 09:25 AST 19 U/L (15-37) 11/29/18 09:25 ALT 29 U/L (12-78) 11/29/18 09:25 Alkaline Phosphatase 97 U/L (46-116) 11/29/18 09:25 Troponin I < 0.02 ng/mL (0.00-0.06) 11/29/18 09:25 NT-Pro-B Natriuret Pep 54 pg/mL (-299) 11/29/18 09:25 Total Protein 7.8 g/dL (6.4-8.2) 11/29/18 09:25 Albumin 3.1 g/dL (3.4-5.0) L 11/29/18 09:25
[2018-11-30] MEDS: cefTRIAXone 1 GM/50 ML BAG IVPB (13:37)
--- NOTE | 2018-11-30 15:20 | CHAPLAIN ---
Radha is know to many staff here from previous admissions and from being here with her son, Lucas, who recently. Lucas was always in a wheelchair and most of Radha' life was dedicated to caring for him. Radha said she is feeling better today. She is sitting up in a chair, hoping that will help her improve her breathing, she said. A grandson (nephew?) is with her. We talked about her life has changed drastically since Lucas's , and she acknowledges that much of her purpose in life had to do with taking care of Lucas, and she finds it difficult to go places or in places where she took Lucas. Caring for her grandson/nephew gives a reason to get up and out of her house each day. We talked about grief affecting her health and emotions, and about how there is no timeline for her grieving process.
--- NOTE | 2018-11-30 16:38 | PDOC.CMIN ---
Care Management Initial Assess REASON FOR HOSPITALIZATION:: COPD Exacerbation PAST MEDICAL HISTORY/PAST SURGICAL HISTORY:: Radha resides in [facility] with her disabled son, Lucas, and off and on with her boyfriend of 30 years, Galo. 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 Radha has home O2 and a BiPAP through [employer] and has an electric wheelchair. She is independent with her ADLs and utilizes [facility] for transportation needs. 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 Radha has home O2 and a BiPAP through [employer] and has an electric wheelchair. She is independent with her ADLs and utilizes [facility] for transportation needs. CURRENT FUNCTIONAL STATUS:: Radha is sitting on her bed in the ICU when CM visits this afternoon. She is visiting with her grandson; and the two are giggling. CM agrees to come back when Radha can speak to how things in her life are going as she lost her son recently. ADVANCE DIRECTIVES:: On file at [facility]. Has patient been provided with information about the portal?: Yes Did the patient sign up for the portal?: No CODE STATUS:: Full Code INSURANCE COVERAGE / FINANCIAL ISSUES:: Medicaid, Medicare. CURRENT HOME/COMMUNITY SERVICES/EQUIPMENT:: Patient has an electric w/c, home oxygen and BIPAP through [employer], commode, hospital bed, walker, updraft machine, ramp. She does not have any community or home services and does not want referrals sent on her behalf. PRIMARY CARE PHYSICIAN:: Alphonso Murphy. POTENTIAL DISCHARGE NEEDS:: Follow up appointment with PCP. PATIENT/FAMILY EDUCATION NEEDS:: Discharge education, any limitations, and follow up plan of care. ANTICIPATED BARRIERS TO DISCHARGE:: No anticipated barriers to discharge. TRANSPORTATION:: Radha will transport via [facility] at discharge. PLAN:: Radha will transport home when medically ready per MD. CM will continue to offer support to patient and care team regarding discharge planning and disposition.
--- NOTE | 2018-11-30 17:03 | INITIAL_ITS ---
Care Management Initial Assess REASON FOR HOSPITALIZATION:: COPD Exacerbation PAST MEDICAL HISTORY/PAST SURGICAL HISTORY:: Radha resides in [facility] with her disabled son, Lucas, and off and on with her boyfriend of 30 years, Galo. 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 Radha has home O2 and a BiPAP through [employer] and has an electric wheelchair. She is independent with her ADLs and utilizes [facility] for transportation needs. 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 Radha has home O2 and a BiPAP through [employer] and has an electric wheelchair. She is independent with her ADLs and utilizes [facility] for transportation needs. CURRENT FUNCTIONAL STATUS:: Radha is sitting on her bed in the ICU when CM visits this afternoon. She is visiting with her grandson; and the two are giggling. CM agrees to come back when Radha can speak to how things in her life are going as she lost her son recently. ADVANCE DIRECTIVES:: On file at [facility]. Has patient been provided with information about the portal?: Yes Did the patient sign up for the portal?: No CODE STATUS:: Full Code INSURANCE COVERAGE / FINANCIAL ISSUES:: Medicaid, Medicare. CURRENT HOME/COMMUNITY SERVICES/EQUIPMENT:: Patient has an electric w/c, home oxygen and BIPAP through [employer], commode, hospital bed, walker, updraft machine, ramp. She does not have any community or home services and does not want referrals sent on her behalf. PRIMARY CARE PHYSICIAN:: Alphonso Murphy. POTENTIAL DISCHARGE NEEDS:: Follow up appointment with PCP. PATIENT/FAMILY EDUCATION NEEDS:: Discharge education, any limitations, and follow up plan of care. ANTICIPATED BARRIERS TO DISCHARGE:: No anticipated barriers to discharge. TRANSPORTATION:: Radha will transport via [facility] at discharge. PLAN:: Radha will transport home when medically ready per MD. CM will continue to offer support to patient and care team regarding discharge planning and disposition.
[2018-12-01] VITALS (57 sets, daily range): BP systolic 43–145; BP diastolic 30–83; PULSE 75–108; RESP 4–35; TEMP 36.3–36.6; O2SAT 86–98
[2018-12-01] MEDS: methylPREDNISolone SUCC 125 MG VIAL 60 MG IVP ×3 (02:32→18:40)
[2018-12-01] MEDS: Albuterol/Ipratropium 3 ML UPD VIAL UPD ×5 (02:32→19:56)
[2018-12-01] MEDS: Normal Saline Flush 10 ML SYR (02:38)
[2018-12-01 07:08] LABS: Abs Immature Grans 0.03 k/cumm (0.0-0.09); Absolute Eosinophil Count 0.01 k/cumm (0.0-0.7); Absolute Monocyte Count 0.39 k/cumm (0.11-0.7); Absolute Neutrophil Count 11.52 k/cumm (1.2-6.7); Eosinophils % 0.1; HCT 40.6 % (36.0-46.0); HGB 13.1 g/dL (12.0-15.5); Immature Grans % 0.2; Lymphocytes % 8.8; Mean Corp. HGB Concentration 32.3 g/dL (32.0-36.0); Mean Corpuscular Hemoglobin 28.1 pg (27.0-33.0); Mean Corpuscular Volume 87.1 fL (80-95); Mean Platelet Volume 11.4 fL (8.0-11.0); Neutrophils % 87.9; Platelet Count 277 x1000/uL (130-400); RBC 4.66 m/cumm (4.00-5.20); RBC Distribution Width 14.9 % (11.7-14.6); White Blood Cell Count 13.11 k/cumm (4.4-10.8)
[2018-12-01 07:12] LABS: Absolute Lymphocyte Count 1.15 k/cumm (1.2-3.4)
[2018-12-01 07:19] LABS: Anion Gap 6.8 mmol/L (3-11); BUN 22 mg/dL (7-18); CO2 28.2 mmol/L (21.0-32.0); CREATININE 0.62 mg/dL (0.55-1.02); Calcium 8.6 mg/dL (8.5-10.1); Chloride 103 mmol/L (98-107); Glucose 144 mg/dL (70-100); Magnesium 2.3 mg/dL (1.8-2.4); Potassium 4.7 mmol/L (3.5-5.1); Sodium 138 mmol/L (136-145)
--- NOTE | 2018-12-01 08:08 | PDOC.CMPRO ---
Care Management Progress Note S/O: Radha was sitting up in her chair when CM met with her. Radha processed the loss of her son, Lucas at length. CM provided validation and supportive listening. Radha spoke to feeling lost now that she is experiencing life without Lucas. She spoke about Lucas and how she is trying to cope without his presence. Radha remains ICU level of care; anticipate she will transfer to M/S level of care today or tomorrow. CM will continue to follow. A: 63 year old female admitted to [facility] 11/29/18 for COPD Exacerbation P: Radha will transport home when medically ready per MD; anticipate she will transport via [facility]. CM will continue to offer support to patient and care team regarding discharge planning and disposition.
[2018-12-01] MEDS: Fluticasone NASAL SPRAY 16 GM BTL NS (08:45)
[2018-12-01] MEDS: Heparin 5,000 UNITS/ML VIAL 5000 UNITS SC ×2 (08:45→16:53)
[2018-12-01] MEDS: Gabapentin 100 MG CAP 200 MG PO ×2 (08:46→19:54)
[2018-12-01] MEDS: Ascorbic Acid 500 MG TAB 1000 MG PO (08:46)
[2018-12-01] MEDS: buPROPion-CR 150 MG TABCR PO (08:47)
[2018-12-01] MEDS: Magnesium Chloride 64 MG TABCR PO (08:47)
[2018-12-01] MEDS: Potassium Chloride 10 MEQ CAPCR 20 MEQ PO ×2 (08:47→19:55)
[2018-12-01] MEDS: Aspirin 325 MG TAB PO (08:47)
[2018-12-01] MEDS: guaiFENesin/D-METHORPHAN HB 5 ML CUP 10 ML PO ×2 (11:09→20:59)
--- NOTE | 2018-12-01 12:13 | PGE_ITS ---
Date of Service Date of service: 12/01/18 Time of Service: 12:09 Assessment and Plan (1) Pneumonia: Current visit: No Status: Acute Evidence of potential infiltrate vs. atelectasis by CT. Patient with only a minimal leukocytosis, but does have a history of COPD with current exacerbation, as well as a complaint of new cough - merits antibiotics. No recent hospitalization, and no report of recent antibiotic use. Continue CTx/Azithromycin Day #3. (2) Recurrent UTI: Current visit: No Status: Chronic Urinalysis negative. (3) Obstructive sleep apnea syndrome: Current visit: No Status: Chronic Continue BiPAP therapy. (4) Chronic obstructive lung disease: Current visit: No Status: Chronic On baseline Home Oxygen. Continue antibiotics, IV Steroids, and frequent Nebs. BiPAP as needed. Improving. Monitor. (5) DVT prophylaxis: Current visit: No Status: Acute SC Lovenox. (6) Advance directive on file: Current visit: No Status: Acute Full Code. Subjective Interval history since last seen: 63 year old woman with a history significant for COPD and DAVID, admitted on 11/29 from [facility] Emergency Department with a diagnosis of Pneumonia with concurrent COPD Exacerbation. Mrs. Masterson has a past medical history significant for Oxygen Dependent COPD, Morbid Obesity with DAVID on BiPAP therapy, with Concurrent PHTN and RV Systolic Dysfunction. Her other history includes a Multinodular Goiter, Depression, Recurrent UTIs, and a history of PE in the past. She presented to the ED on the afternoon of admission with respiratory distress. The patient reports onset of a cough 2 days prior, with resultant dyspnea that started suddently on the morning of admission. Upon presentation she was found to be hypoxic despite her supplemental O2, with wheezing by exam. Her labwork was significant for minimal leukocytosis, and her CT showed evidence of potential infiltrates vs. Atelectasi s. She was referred for admission. Following admission Mrs. Masterson was initiated on antibiotic therapy and steroids, and continued on BiPAP therapy. This morning she reports continued improvement in her symptoms. No overnight events reported. She remains afebrile. Exam Narrative Exam Narrative: General: Patient appears comfortable currently, on supplemental O2 by NC, AAOX3. Able to converse with vastly improved dyspnea. Neck: Supple CV: Regular, tachycardic, S1S2, distant heart sounds. Pulmonary: Bilateral, diffuse wheezing vastly improved. Good air entry again noted. Minimal bibasilar crackles. Exam limited by body habitus. Abdomen: + Bowel Sounds, soft, nontender, nondistended but obese in contour. Vascular: Non-pitting, equal bilateral lower extremity edema Psych: Normal mood and affect. Objective Objective Clinical Data: Abnormal lab results 12/01/18 12/01/18 Range/Units 06:25 06:25 WBC 13.11 H (4.4-10.8) k/cumm RDW 14.9 H (11.7-14.6) % MPV 11.4 H (8.0-11.0) fL Absolute Neutrophils 11.52 H (1.2-6.7) k/cumm Absolute Lymphocytes 1.15 L (1.2-3.4) k/cumm BUN 22 H (7-18) mg/dL Glucose 144 H (70-100) mg/dL Vital Signs Temperature 36.3 C L 12/01/18 11:27 Temperature Source Temporal Artery Scan 12/01/18 11:27 Pulse 91 H 12/01/18 09:20 Pulse 100 H 12/01/18 10:20 Respiratory Rate 25 H 12/01/18 10:20 Respiratory Effort 12/01/18 11:27 Respiratory Depth Shallow 12/01/18 11:27 Respiratory Pattern Tachypnea 12/01/18 11:27 Blood Pressure 145/71 H 12/01/18 08:23 Blood Pressure Mean 89 12/01/18 08:23 Blood Pressure Position Supine 11/30/18 03:57 Pulse Oximetry 93 L 12/01/18 10:20 Oxygen Delivery Method Nasal Cannula 12/01/18 09:20 Oxygen Flow Rate 2 12/01/18 09:20 Fraction of Inspired Oxygen (FIO2) 30 11/29/18 13:24 Pain Level 0 12/01/18 11:27 Intake & Output 11/30/18 12/01/18 12/01/18 23:59 11:59 23:59 Intake Total 743 / 979 310 / 310 Output Total 600 / 1300 550 / 550 Balance 143 / -321 -240 / -240 Weight 189.7 kg Intake: IV 270 / 270 10 / 10 Oral 473 / 709 300 / 300 Output: Urine 600 / 1300 550 / 550 Other: Urine Color Yellow Yellow Urine Appearance Clear Cloudy Urine Odor Normal Strong Voiding Methods Bedside Commode Laboratory Results WBC 13.11 k/cumm (4.4-10.8) H 12/01/18 06:25 RBC 4.66 m/cumm (4.00-5.20) 12/01/18 06:25 Hgb 13.1 g/dL (12.0-15.5) 12/01/18 06:25 Hct 40.6 % (36.0-46.0) 12/01/18 06:25 MCV 87.1 fL (80-95) 12/01/18 06:25 MCH 28.1 pg (27.0-33.0) 12/01/18 06:25 MCHC 32.3 g/dL (32.0-36.0) 12/01/18 06:25 RDW 14.9 % (11.7-14.6) H 12/01/18 06:25 Plt Count 277 x1000/uL (130-400) 12/01/18 06:25 MPV 11.4 fL (8.0-11.0) H 12/01/18 06:25 Immature Gran % 0.2 12/01/18 06:25 Neutrophils % 87.9 12/01/18 06:25 Lymphocytes % 8.8 12/01/18 06:25 Monocytes % 3.0 12/01/18 06:25 Eosinophils % 0.1 12/01/18 06:25 Basophils % 0.0 12/01/18 06:25 Absolute Neutrophils 11.52 k/cumm (1.2-6.7) H 12/01/18 06:25 Absolute Lymphocytes 1.15 k/cumm (1.2-3.4) L 12/01/18 06:25 Absolute Monocytes 0.39 k/cumm (0.11-0.7) 12/01/18 06:25 Absolute Eosinophils 0.01 k/cumm (0.0-0.7) 12/01/18 06:25 Absolute Basophils 0.00 k/cumm (0.0-0.2) 12/01/18 06:25 PT 9.8 sec (9.3-11.0) 11/29/18 09:25 INR 1.0 (0.9-1.1) 11/29/18 09:25 APTT 25.3 sec (21.0-31.4) 11/29/18 09:25 D-Dimer 787 ng/mlFEU (<500) H 11/29/18 09:25 VBG pH 7.40 (7.32-7.43) 11/29/18 09:25 VBG pCO2 45 mm/Hg (34-47) 11/29/18 09:25 VBG pO2 45 mm/Hg (28-44) H 11/29/18 09:25 VBG HCO3 28 mmol/L (22-28) 11/29/18 09:25 VBG Total CO2 25 mmol/L (22-29) 11/29/18 09:25 VBG O2 Saturation 82 % (70-80) H 11/29/18 09:25 VBG Base Excess 3.1 mmol/L (-3-3) H 11/29/18 09:25 Sodium 138 mmol/L (136-145) 12/01/18 06:25 Potassium 4.7 mmol/L (3.5-5.1) 12/01/18 06:25 Chloride 103 mmol/L (98-107) 12/01/18 06:25 Carbon Dioxide 28.2 mmol/L (21.0-32.0) 12/01/18 06:25 Anion Gap 6.8 mmol/L (3-11) 12/01/18 06:25 BUN 22 mg/dL (7-18) H 12/01/18 06:25 Creatinine 0.62 mg/dL (0.55-1.02) 12/01/18 06:25 Estimated GFR/1.73 m2 >= 60.00 (mL/min/1.73m2) 12/01/18 06:25 Glucose 144 mg/dL (70-100) H 12/01/18 06:25 Calcium 8.6 mg/dL (8.5-10.1) 12/01/18 06:25 Magnesium 2.3 mg/dL (1.8-2.4) 12/01/18 06:25 Total Bilirubin 1.2 mg/dL (0.2-1.0) H 11/29/18 09:25 AST 19 U/L (15-37) 11/29/18 09:25 ALT 29 U/L (12-78) 11/29/18 09:25 Alkaline Phosphatase 97 U/L (46-116) 11/29/18 09:25 Troponin I < 0.02 ng/mL (0.00-0.06) 11/29/18 09:25 NT-Pro-B Natriuret Pep 54 pg/mL (-299) 11/29/18 09:25 Total Protein 7.8 g/dL (6.4-8.2) 11/29/18 09:25 Albumin 3.1 g/dL (3.4-5.0) L 11/29/18 09:25 Urine Color Yellow (Yellow) 11/30/18 10:29 Urine Clarity Sl cloudy 11/30/18 10:29 Urine pH 6.0 (5-8) 11/30/18 10:29 Ur Specific [place] 1.020 (1.005-1.025) 11/30/18 10:29 Urine Protein Negative mg/dL (Negative) 11/30/18 10:29 Urine Ketones Negative mg/dL (Negative) 11/30/18 10:29 Urine Blood Negative (Negative) 11/30/18 10:29 Urine Nitrite Negative (Negative) 11/30/18 10:29 Urine Bilirubin Negative (Negative) 11/30/18 10:29 Urine Urobilinogen 0.2 EU/dL (Up TO 0.2) 11/30/18 10:29 Ur Leukocyte Esterase Negative (Negative) 11/30/18 10:29 Urine Glucose Negative mg/dL (Negative) 11/30/18 10:29
[2018-12-01] MEDS: Benzonatate 200 MG CAP PO ×2 (13:37→19:55)
--- NOTE | 2018-12-01 14:01 | NUR.NOTE ---
Azithromycin infusing via RAC peripheral iv site- pt c/o severe pain at site- no redness or swelling noted to site, rate decreased to 125 ml/hr- pt refused to allow the medication to continue at this time. med stopped and disconnected from the pt as she demanded.Nursing Note:
[2018-12-01] MEDS: AZITHROMYCIN 500 MG in Normal Saline 250 ML 250 MG IVPB (16:03)
--- NOTE | 2018-12-01 16:45 | NUR.NOTE ---
Care was transferred to Dillan Barnard from Shahla Washington 12/01 from 1130 to 1500 while Dillan Tarangos was off the floor. Nursing Note:
[2018-12-01] MEDS: cefTRIAXone 1 GM/50 ML BAG IVPB (18:15)
[2018-12-01] MEDS: Levalbuterol 0.63 MG/3 ML UPD VIAL UPD (19:55)
[2018-12-02] VITALS (19 sets, daily range): BP systolic 127–163; BP diastolic 55–95; PULSE 80–94; RESP 4–26; TEMP 35.7–37.2; O2SAT 89–99
[2018-12-02] MEDS: Heparin 5,000 UNITS/ML VIAL 5000 UNITS SC ×4 (01:33→23:42)
[2018-12-02] MEDS: Albuterol/Ipratropium 3 ML UPD VIAL UPD ×6 (01:33→21:49)
[2018-12-02] MEDS: Acetaminophen 325 MG TAB PO (02:06)
[2018-12-02] MEDS: Levalbuterol 0.63 MG/3 ML UPD VIAL UPD (02:11)
[2018-12-02] MEDS: Normal Saline Flush 10 ML SYR IVP ×2 (03:37→14:21)
[2018-12-02 06:09] LABS: Abs Immature Grans 0.03 k/cumm (0.0-0.09); Absolute Lymphocyte Count 1.31 k/cumm (1.2-3.4); Absolute Monocyte Count 0.79 k/cumm (0.11-0.7); HCT 40.2 % (36.0-46.0); HGB 12.8 g/dL (12.0-15.5); Immature Grans % 0.3; Lymphocytes % 11.8; Mean Corp. HGB Concentration 31.8 g/dL (32.0-36.0); Mean Corpuscular Hemoglobin 27.8 pg (27.0-33.0); Mean Corpuscular Volume 87.2 fL (80-95); Mean Platelet Volume 11.4 fL (8.0-11.0); Monocytes % 7.1; Neutrophils % 80.8; Platelet Count 284 x1000/uL (130-400); RBC 4.61 m/cumm (4.00-5.20); RBC Distribution Width 14.8 % (11.7-14.6); White Blood Cell Count 11.12 k/cumm (4.4-10.8)
[2018-12-02 06:13] LABS: Absolute Neutrophil Count 8.98 k/cumm (1.2-6.7)
[2018-12-02 06:23] LABS: Anion Gap 8.9 mmol/L (3-11); BUN 28 mg/dL (7-18); CO2 26.1 mmol/L (21.0-32.0); CREATININE 0.81 mg/dL (0.55-1.02); Calcium 8.7 mg/dL (8.5-10.1); Chloride 102 mmol/L (98-107); Glucose 195 mg/dL (70-100); Magnesium 2.2 mg/dL (1.8-2.4); Potassium 4.5 mmol/L (3.5-5.1); Sodium 137 mmol/L (136-145)
[2018-12-02] MEDS: Furosemide 40 MG TAB PO (06:33)
[2018-12-02] MEDS: Furosemide 40 MG TAB (06:39)
[2018-12-02] MEDS: methylPREDNISolone SUCC 125 MG VIAL 60 MG IVP ×2 (06:39→18:39)
--- NOTE | 2018-12-02 07:55 | PDOC.CMPRO ---
- If Service Date Differs Date of service: 12/02/18 Time of Service: 07:55 Care Management Progress Note S/O: CM met with Radha at the bedside her grandson and SO are in the room. She states her breathing is better however not at her baseline. She continues to have some difficulty speaking full sentences and frequent harsh cough. She complains of right sided chest discomfort that becomes worse with coughing. Radha is hard of hearing her hearing aids are not working properly even after battery change. She will follow up with ENT. CM did engage Radha in conversation related to the recent loss of her son and grieving. She states she cries often and feels lost at times. She states she has been taking her grandson often which helps with her grieving and offers some distraction. CM provided active listening and reflection of her love and devotion to her son and commended her for being an extraordinary advocate for him. A: 63 year old female admitted to [facility] 11/29/18 for COPD Exacerbation. Radha has a hx of chronic COPD, oxygen dependent and multiple hospitalizations related to chronic disease. She receives support in the community through outpatient respiratory services. Radha is wheelchair dependent. P: Radha will be discharged when medically ready; anticipate she will transport via [facility]. She continues on IV antibiotics and steroids. CM will continue to offer support to patient and care team regarding discharge planning and disposition.
[2018-12-02] MEDS: Magnesium Chloride 64 MG TABCR PO (08:36)
[2018-12-02] MEDS: Fluticasone NASAL SPRAY 16 GM BTL NS (08:36)
[2018-12-02] MEDS: Aspirin 325 MG TAB PO (08:36)
[2018-12-02] MEDS: buPROPion-CR 150 MG TABCR PO (08:36)
[2018-12-02] MEDS: Potassium Chloride 10 MEQ CAPCR 20 MEQ PO ×2 (08:36→19:17)
[2018-12-02] MEDS: Ascorbic Acid 500 MG TAB 1000 MG PO (08:38)
[2018-12-02] MEDS: Gabapentin 100 MG CAP 200 MG PO ×2 (08:38→19:16)
[2018-12-02] MEDS: Benzonatate 200 MG CAP PO ×3 (08:38→19:16)
--- NOTE | 2018-12-02 11:37 | PT.INIE ---
Date of service: 12/02/18 Time of Service: 11:15 PT Notes Inpatient Physical Therapy Evaluation Date: December 02, 2018 Referring Doctor: Trish Rajan MD PT Orders: PT CONSULT: eval and treat Precautions: O2 dependent Patient Profile/Admitting Diagnosis: Radha is a 63 year old female admitted on 11/29/18 secondary to COPD exacerbation secondary to pneumonia. PMHX: Varicose veins of lower extremity, Low back pain with sciatica,Sensorineural hearing loss, Morbid obesity, Knee pain, bilateral, Goiter, nontoxic, multinodular, Chronic obstructive lung disease, Depressive disorder, Insomnia with sleep apnea, Obstructive sleep apnea syndrome, Chronic headaches Urinary incontinence, Recurrent UTI's, Right ventricular dysfunction, prev history of Pulmonary embolism (Resolved) Surgical History: Fasciotomy, Foot (~1996),Replacement of total knee joint Social History/Home Situation: Radha resides alone in [facility]. She reports that she recently lost her disabled son that has lived with her his entire life. She reports independence with her ADL's. She does utilize a electric chair for ambulation in the community and occasionally in the home. She notes that she does utilize a walker for short distances only. She relies on [facility] for transportation. Current Functional Limitations: Shortness of breath with exertion Equipment Owned/DME: electric w/c, home oxygen, BIPAP, commode, hospital bed, walker, updraft machine, ramp to enter her home, trapeze to assist with her bed mobility Subjective: Radha up in electric chair at time of PT consult. Patient was agreeable to evaluation this morning. Objective: General Observation: O2 via nasal canula on 2 liters Mental Status: Alert and oriented x3. ROM: ROM: RUE: AROM WNL L UE: AROM WNL R LE AROM WFL - limited by obesity LLE: AROM WFL - limited by obesity STRENGTH: R UE: 4/5 throughout L UE: 4/5 throughout R LE: 3+ to 4/5 - limited by obesity LLE: 3+ to 4/5 - limited by obesity BED MOBILITY/TRANSFERS: * using merchandise support associate, pt I donning pajama pants. Sit-stand: I Stand-sit: I Bed- commode: I Commode -bed: I GAIT: 50 ft in room with 02 2 liters via nasal canula. Radha was able to carry on conversation throughout ambulation in room with mild SOB. Supervision only with use of FWW. Patient does not want to be held onto during gait. BALANCE: Static sitting: Normal Dynamic Sitting: Normal Static Standing: Good Dynamic Standing: Fair SPECIAL TESTS: Mobility Limitations Standardized Measure [facility] AM-PAC 6 clicks raw score 22, standardized 47.10, CMS score 25.80% and modifier CJ INFORMED CONSENT/EDUCATION: Instructed in purpose of PT Consult and plan of care and in agreement with plan. Instructed in pacing and energy conservation techniques with mobility. ASSESSMENT: Pt is a 63 yr old female admitted with chronic obstructive pulmonary disease exacerbation and pneumonia in setting of severe restrictive disease, morbid obesity, chronic low back pain, chronic peripheral edema, cor pulmonale right heart failure, depression, obstructive sleep apnea, hypoventilation syndrome, nocturnal Bipap 5 L, lower extremity edema. Patient mobility restricted at this time due to dyspnea with any prolonged exertion. Patient presents with the following impairment level findings: LE weakness, gait mobility, standing balance, poor respiratory capacity with exertion limiting her ability to perform ADLS and functional mobility Impairments are contributing to the following functional limitations: AMPAC score CMS score 25.80% Patient is assessed as a * Moderate 57785 complexity based on the following: History: dyspnea, chronic obstructive pulmonary disease exacerbation and pneumonia in setting of severe restrictive disease, morbid obesity, chronic low back pain, chronic peripheral edema, cor pulmonale right heart failure, depression, obstructive sleep apnea, hypoventilation syndrome, nocturnal Bipap, lower extremity edema. Examination: lungs, legs, weakness and decreased gait mobility, standing balance, poor respiratory capacity with exertion limiting her ability to perform ADLS and functional mobility Presentation: Evolving Decision Making: AMPAC score CMS score 25.80% GOALS Goals x1 week 1.Supine-sit: HOB flat, I 2.Sit-Supine: HOB flat, I 3.Sit-Stand: I with bariatric FWW 4.Stand-sit: I 5.Bed-chair: I with bariatric FWW 6.Chair-bed: I with bariatric FWW 7.Gait: S with bariatric FWW [id number] 8.I with home exercise program for LE Strengthening PLAN OF CARE/TREATMENT PLAN: 1-2x/day, 7 days/ week x 1 week Plan of care has been reviewed with the APPLICATIONS PROCESSOR providing the service under Physical therapy direction. Initiate physical therapy for strengthening, gait training and instruction in pacing and energy conservation. DISCHARGE RECOMMENDATIONS Home TREATMENT TIME/MINUTES/CODES 25 IE 11:15 Sallie Vazquez, MPT
--- NOTE | 2018-12-02 11:40 | IN_ITS ---
Date of service: 12/02/18 Time of Service: 11:15 PT Notes Inpatient Physical Therapy Evaluation Date: December 02, 2018 Referring Doctor: Trish Rajan MD PT Orders: PT CONSULT: eval and treat Precautions: O2 dependent Patient Profile/Admitting Diagnosis: Radha is a 63 year old female admitted on 11/29/18 secondary to COPD exacerbation secondary to pneumonia. PMHX: Varicose veins of lower extremity, Low back pain with sciatica,Sen sorineural hearing loss, Morbid obesity, Knee pain, bilateral, Goiter, nontoxic, multinodular, Chronic obstructive lung disease, Depressive disorder, Insomnia with sleep apnea, Obstructive sleep apnea syndrome, Chronic headaches Urinary incontinence, Recurrent UTI's, Right ventricular dysfunction, prev history of Pulmonary embolism (Resolved) Surgical History: Fasciotomy, Foot (~1996),Replacement of total knee joint Social History/Home Situation: Radha resides alone in [facility]. She reports that she recently lost her disabled son that has lived with her his entire life. She reports independence with her ADL's. She does utilize a electric chair for ambulation in the community and occasionally in the home. She notes that she does utilize a walker for short distances only. She relies on [facility] for transportation. Current Functional Limitations: Shortness of breath with exertion Equipment Owned/DME: electric w/c, home oxygen, BIPAP, commode, hospital bed, walker, updraft machine, ramp to enter her home, trapeze to assist with her bed mobility Subjective: Radha up in electric chair at time of PT consult. Patient was agreeable to evaluation this morning. Objective: General Observation: O2 via nasal canula on 2 liters Mental Status: Alert and oriented x3. ROM: ROM: RUE: AROM WNL L UE: AROM WNL R LE AROM WFL - limited by obesity LLE: AROM WFL - limited by obesity STRENGTH: R UE: 4/5 throughout L UE: 4/5 throughout R LE: 3+ to 4/5 - limited by obesity LLE: 3+ to 4/5 - limited by obesity BED MOBILITY/TRANSFERS: * using money order clerk, pt I donning pajama pants. Sit-stand: I Stand-sit: I Bed- commode: I Commode -bed: I GAIT: 50 ft in room with 02 2 liters via nasal canula. Radha was able to carry on conversation throughout ambulation in room with mild SOB. Supervision only with use of FWW. Patient does not want to be held onto during gait. BALANCE: Static sitting: Normal Dynamic Sitting: Normal Static Standing: Good Dynamic Standing: Fair SPECIAL TESTS: Mobility Limitations Standardized Measure [facility] AM-PAC 6 clicks raw score 22, standardized 47.10, CMS score 25.80% and modifier CJ INFORMED CONSENT/EDUCATION: Instructed in purpose of PT Consult and plan of care and in agreement with plan. Instructed in pacing and energy conservation techniq ues with mobility. ASSESSMENT: Pt is a 63 yr old female admitted with chronic obstructive pulmonary disease exacerbation and pneumonia in setting of severe restrictive disease, morbid obesity, chronic low back pain, chronic peripheral edema, cor pulmonale right heart failure, depression, obstructive sleep apnea, hypoventilation syndrome, nocturnal Bipap 5 L, lower extremity edema. Patient mobility restricted at this time due to dyspnea with any prolonged exertion. Patient presents with the following impairment level findings: LE weakness, gait mobility, standing balance, poor respiratory capacity with exertion limiting her ability to perform ADLS and functional mobility Impairments are contributing to the following functional limitations: [facility] ore CMS score 25.80% Patient is assessed as a * Moderate 70484 complexity based on the following: History: dyspnea, chronic obstructive pulmonary disease exacerbation and pneumonia in setting of severe restrictive disease, morbid obesity, chronic low back pain, chronic peripheral edema, cor pulmonale right heart failure, depression, obstructive sleep apnea, hypoventilation syndrome, nocturnal Bipap, lower extremity edema. Examination: lungs, legs, weakness and decreased gait mobility, standing balance, poor respiratory capacity with exertion limiting her ability to perform ADLS and functional mobility Presentation: Evolving Decision Making: [facility] score CMS score 25.80% GOALS Goals x1 week 1.Supine-sit: HOB flat, I 2.Sit-Supine: HOB flat, I 3.Sit-Stand: I with bariatric FWW 4.Stand-sit: I 5.Bed-chair: I with bariatric FWW 6.Chair-bed: I with bariatric FWW 7.Gait: S with bariatric FWW [id number] 8.I with home exercise program for LE Strengthening PLAN OF CARE/TREATMENT PLAN: 1-2x/day, 7 days/ week x 1 week Plan of care has been reviewed with the INDUSTRIAL FABRIC CUTTER providing the service under Physical therapy direction. Initiate physical therapy for strengthening, gait training and instruction in pacing and energy conservation. DISCHARGE RECOMMENDATIONS Home TREATMENT TIME/MINUTES/CODES 25 IE 11:15 Sallie Vazquez, MPT
--- NOTE | 2018-12-02 13:34 | W.PM.PROGNOT ---
Date of Service Date of service: 12/02/18 Time of Service: 13:34 Assessment and Plan (1) Pneumonia: Current visit: No Status: Acute CAP, seen on CT, triggering acute exacerbation of COPD. Continue IV azithromycin/rocephin (Day 4). (2) Recurrent UTI: Current visit: No Status: Chronic Urinalysis negative. No evidence of UTI on this admission. (3) Obstructive sleep apnea syndrome: Current visit: No Status: Chronic Continue BiPAP therapy. (4) Chronic obstructive lung disease: Current visit: No Status: Chronic In acute exacerbation; On baseline Home Oxygen. Continue antibiotics, would not taper IV Steroids today, and frequent Nebs. BiPAP as needed. Improving. Monitor. (5) DVT prophylaxis: Current visit: No Status: Acute SC Lovenox. (6) Advance directive on file: Current visit: No Status: Acute Full Code. Subjective Interval history since last seen: Continues to feel short of breath, though states she is a little bit better. She is not back to her baseline. Reports difficulty drinking and breathing at the same time. Complains of lightheadedness when walking, R-sided chest pain, worse when coughing or taking a deep breath. Denies dizziness, nausea. States she is not yet back to her normal. Exam Narrative Exam Narrative: General: Very pleasant middle-aged female, sitting in a chair, does appear short of breath when moving HEENT: EOMI, MMM Heart: RRR, no m/r/g Lungs: quiet wheezing LLL prior to coughing; post coughing, very diminished breath sounds B, tight GI: abdomen obese, nontender Exremities: BLE lymphedema, symmetric Objective Objective Clinical Data: Abnormal lab results 12/02/18 12/02/18 Range/Units 05:42 05:42 WBC 11.12 H (4.4-10.8) k/cumm MCHC 31.8 L (32.0-36.0) g/dL RDW 14.8 H (11.7-14.6) % MPV 11.4 H (8.0-11.0) fL Absolute Neutrophils 8.98 H (1.2-6.7) k/cumm Absolute Monocytes 0.79 H (0.11-0.7) k/cumm BUN 28 H (7-18) mg/dL Glucose 195 H (70-100) mg/dL Vital Signs Temperature 35.7 C L 12/02/18 08:00 Temperature Source Tympanic 12/02/18 08:00 Pulse 94 H 12/02/18 12:12 Pulse 90 12/01/18 16:40 Respiratory Rate 22 12/02/18 12:12 Respiratory Effort Labored 12/02/18 08:00 Respiratory Depth Shallow 12/02/18 08:00 Respiratory Pattern Tachypnea 12/02/18 08:00 Blood Pressure 150/95 H 12/02/18 08:00 Blood Pressure Mean 106 12/02/18 07:58 Blood Pressure Position Supine 11/30/18 03:57 Pulse Oximetry 90 L 12/02/18 12:12 Oxygen Delivery Method Nasal Cannula 12/02/18 12:12 Oxygen Flow Rate 2 12/02/18 12:12 Fraction of Inspired Oxygen (FIO2) 30 11/29/18 13:24 Pain Level 0 12/02/18 10:48 Comment 12/02/18 12:12 Intake & Output 12/01/18 12/02/18 12/02/18 23:59 11:59 23:59 Intake Total 560 / 1120 Output Total 1225 / 2050 550 / 550 Balance -665 / -930 -550 / -550 Intake: IV 310 / 320 Oral 250 / 800 Output: Urine 1225 / 2050 550 / 550 Other: Urine Color Light Anay Light Anay Urine Appearance Clear Clear Urine Odor None None Comment mixed with stool in commode. Stool Occult Blood Negative Stool Size Copious Stool Characteristics Soft Brown Voiding Methods Bedside Commode Bedside Commode Laboratory Results WBC 11.12 k/cumm (4.4-10.8) H 12/02/18 05:42 RBC 4.61 m/cumm (4.00-5.20) 12/02/18 05:42 Hgb 12.8 g/dL (12.0-15.5) 12/02/18 05:42 Hct 40.2 % (36.0-46.0) 12/02/18 05:42 MCV 87.2 fL (80-95) 12/02/18 05:42 MCH 27.8 pg (27.0-33.0) 12/02/18 05:42 MCHC 31.8 g/dL (32.0-36.0) L 12/02/18 05:42 RDW 14.8 % (11.7-14.6) H 12/02/18 05:42 Plt Count 284 x1000/uL (130-400) 12/02/18 05:42 MPV 11.4 fL (8.0-11.0) H 12/02/18 05:42 Immature Gran % 0.3 12/02/18 05:42 Neutrophils % 80.8 12/02/18 05:42 Lymphocytes % 11.8 12/02/18 05:42 Monocytes % 7.1 12/02/18 05:42 Eosinophils % 0.0 12/02/18 05:42 Basophils % 0.0 12/02/18 05:42 Absolute Neutrophils 8.98 k/cumm (1.2-6.7) H 12/02/18 05:42 Absolute Lymphocytes 1.31 k/cumm (1.2-3.4) 12/02/18 05:42 Absolute Monocytes 0.79 k/cumm (0.11-0.7) H 12/02/18 05:42 Absolute Eosinophils 0.00 k/cumm (0.0-0.7) 12/02/18 05:42 Absolute Basophils 0.00 k/cumm (0.0-0.2) 12/02/18 05:42 PT 9.8 sec (9.3-11.0) 11/29/18 09:25 INR 1.0 (0.9-1.1) 11/29/18 09:25 APTT 25.3 sec (21.0-31.4) 11/29/18 09:25 D-Dimer 787 ng/mlFEU (<500) H 11/29/18 09:25 VBG pH 7.40 (7.32-7.43) 11/29/18 09:25 VBG pCO2 45 mm/Hg (34-47) 11/29/18 09:25 VBG pO2 45 mm/Hg (28-44) H 11/29/18 09:25 VBG HCO3 28 mmol/L (22-28) 11/29/18 09:25 VBG Total CO2 25 mmol/L (22-29) 11/29/18 09:25 VBG O2 Saturation 82 % (70-80) H 11/29/18 09:25 VBG Base Excess 3.1 mmol/L (-3-3) H 11/29/18 09:25 Sodium 137 mmol/L (136-145) 12/02/18 05:42 Potassium 4.5 mmol/L (3.5-5.1) 12/02/18 05:42 Chloride 102 mmol/L (98-107) 12/02/18 05:42 Carbon Dioxide 26.1 mmol/L (21.0-32.0) 12/02/18 05:42 Anion Gap 8.9 mmol/L (3-11) 12/02/18 05:42 BUN 28 mg/dL (7-18) H 12/02/18 05:42 Creatinine 0.81 mg/dL (0.55-1.02) 12/02/18 05:42 Estimated GFR/1.73 m2 >= 60.00 (mL/min/1.73m2) 12/02/18 05:42 Glucose 195 mg/dL (70-100) H 12/02/18 05:42 Calcium 8.7 mg/dL (8.5-10.1) 12/02/18 05:42 Magnesium 2.2 mg/dL (1.8-2.4) 12/02/18 05:42 Total Bilirubin 1.2 mg/dL (0.2-1.0) H 11/29/18 09:25 AST 19 U/L (15-37) 11/29/18 09:25 ALT 29 U/L (12-78) 11/29/18 09:25 Alkaline Phosphatase 97 U/L (46-116) 11/29/18 09:25 Troponin I < 0.02 ng/mL (0.00-0.06) 11/29/18 09:25 NT-Pro-B Natriuret Pep 54 pg/mL (-299) 11/29/18 09:25 Total Protein 7.8 g/dL (6.4-8.2) 11/29/18 09:25 Albumin 3.1 g/dL (3.4-5.0) L 11/29/18 09:25 Urine Color Yellow (Yellow) 11/30/18 10:29 Urine Clarity Sl cloudy 11/30/18 10:29 Urine pH 6.0 (5-8) 11/30/18 10:29 Ur Specific [place] 1.020 (1.005-1.025) 11/30/18 10:29 Urine Protein Negative mg/dL (Negative) 11/30/18 10:29 Urine Ketones Negative mg/dL (Negative) 11/30/18 10:29 Urine Blood Negative (Negative) 11/30/18 10:29 Urine Nitrite Negative (Negative) 11/30/18 10:29 Urine Bilirubin Negative (Negative) 11/30/18 10:29 Urine Urobilinogen 0.2 EU/dL (Up TO 0.2) 11/30/18 10:29 Ur Leukocyte Esterase Negative (Negative) 11/30/18 10:29 Urine Glucose Negative mg/dL (Negative) 11/30/18 10:29
[2018-12-02] MEDS: cefTRIAXone 1 GM/50 ML BAG IVPB (14:20)
--- NOTE | 2018-12-02 14:45 | NUR.NOTE ---
Nursing Note: 1050: pt from ICU 221 to MS 210 via pt's own wheelchair. pt alert/oriented. oriented to call [facility]. see vs for information.
[2018-12-02] MEDS: AZITHROMYCIN 500 MG in Normal Saline 250 ML 250 MG IVPB (14:59)
--- NOTE | 2018-12-02 18:28 | WOUNDCARE ---
Wound Care Report: This nurse was consulted on the care this patient's wound. Radha Masterson is a 63 year old obese female admitted to the hospital for COPD exacerbation. Chart review was completed. Patient is wheelchair bound and spends most of her time in her electric wheelchair. She states that the back of her thighs hurt from rubbing against the wheelchair seat for the past 3 months, and that the wheelchair seat had not done this in the past. This nurse inspected the back of patient's thighs and noted there to be no open or scabbed areas. To patient's bilateral posterior thighs is noted to be reddened and irritated skin which is tender to palpation. Dr. Rajan in to see patient at this time as well and wishes to use zinc cream to this area. This nurse agrees with this and also recommends that PT evaluate patient's wheelchair seat to prevent any tissue damage.
[2018-12-02] MEDS: guaiFENesin 600 MG TABCR PO (19:17)
[2018-12-02] MEDS: Budesonide/Formoterol 160/4.5 6 GM 60 PUFF INH IH (19:17)
[2018-12-03] VITALS (11 sets, daily range): BP systolic 126–162; BP diastolic 74–82; PULSE 81–100; RESP 2–28; TEMP 36.3–37.1; O2SAT 92–98
[2018-12-03] MEDS: Albuterol/Ipratropium 3 ML UPD VIAL UPD ×6 (01:20→22:36)
[2018-12-03] MEDS: methylPREDNISolone SUCC 125 MG VIAL 60 MG IVP (06:57)
[2018-12-03] MEDS: Normal Saline Flush 10 ML SYR IVP (06:57)
[2018-12-03] MEDS: Heparin 5,000 UNITS/ML VIAL 5000 UNITS SC ×3 (08:05→23:53)
[2018-12-03] MEDS: Benzonatate 200 MG CAP PO ×3 (08:06→21:00)
[2018-12-03] MEDS: guaiFENesin 600 MG TABCR PO ×2 (08:06→21:02)
[2018-12-03] MEDS: Magnesium Chloride 64 MG TABCR PO (08:06)
[2018-12-03] MEDS: Gabapentin 100 MG CAP 200 MG PO ×2 (08:06→21:00)
[2018-12-03] MEDS: Furosemide 40 MG TAB PO (08:06)
[2018-12-03] MEDS: Potassium Chloride 10 MEQ CAPCR 20 MEQ PO ×2 (08:06→21:01)
[2018-12-03] MEDS: buPROPion-CR 150 MG TABCR PO (08:06)
[2018-12-03] MEDS: Aspirin 325 MG TAB PO (08:06)
[2018-12-03] MEDS: Ascorbic Acid 500 MG TAB 1000 MG PO (08:06)
[2018-12-03] MEDS: Fluticasone NASAL SPRAY 16 GM BTL NS (09:53)
[2018-12-03] MEDS: Budesonide/Formoterol 160/4.5 6 GM 60 PUFF INH IH ×2 (10:58→21:03)
[2018-12-03 11:46] LABS: Abs Immature Grans 0.05 k/cumm (0.0-0.09); Absolute Basophil Count 0.01 k/cumm (0.0-0.2); Absolute Monocyte Count 0.47 k/cumm (0.11-0.7); Basophils % 0.1; HCT 44.9 % (36.0-46.0); HGB 14.9 g/dL (12.0-15.5); Immature Grans % 0.5; Lymphocytes % 11.2; Mean Corp. HGB Concentration 33.2 g/dL (32.0-36.0); Mean Corpuscular Hemoglobin 28.4 pg (27.0-33.0); Mean Corpuscular Volume 85.5 fL (80-95); Mean Platelet Volume 11.2 fL (8.0-11.0); Monocytes % 4.3; Neutrophils % 83.9; Platelet Count 300 x1000/uL (130-400); RBC 5.25 m/cumm (4.00-5.20); RBC Distribution Width 14.6 % (11.7-14.6); White Blood Cell Count 11.03 k/cumm (4.4-10.8)
[2018-12-03 11:48] LABS: Absolute Lymphocyte Count 1.24 k/cumm (1.2-3.4); Absolute Neutrophil Count 9.25 k/cumm (1.2-6.7)
[2018-12-03 11:52] LABS: Anion Gap 8.2 mmol/L (3-11); BUN 23 mg/dL (7-18); CO2 29.8 mmol/L (21.0-32.0); CREATININE 0.79 mg/dL (0.55-1.02); Calcium 8.7 mg/dL (8.5-10.1); Chloride 97 mmol/L (98-107); Glucose 123 mg/dL (70-100); Magnesium 2.1 mg/dL (1.8-2.4); Potassium 4.4 mmol/L (3.5-5.1); Sodium 135 mmol/L (136-145)
--- NOTE | 2018-12-03 13:47 | PDOC.CMPRO ---
- If Service Date Differs Date of service: 12/03/18 Time of Service: 13:48 Care Management Progress Note S/O: CM met with Radha in the room she appears less short of breath she continues on oxygen which is her baseline. Radha is very tearful today it is her first holiday without her son Lucas. She is open with CM regarding her feelings and shares that she no longer has a reason to live. She denies suicidally she identifies the feelings as grieving thoughts. She states when her son was alive she had a purpose she does not feel she has a purpose at this time. CM provided support and active listening. Radha is willing to meet with as a consult and for recommendations. Radha does not feel that she is ready to return home today she remains on antibiotics. CM updated provider a consult will be ordered for and CM will also contact provider and notify of the consult. CM will continue to provide support to Radha throughout her stay. A: 63 year old female admitted to [facility] 11/29/18 for COPD Exacerbation. Radha has a hx of chronic COPD, oxygen dependent and multiple hospitalizations related to chronic disease. She receives support in the community through outpatient respiratory services. Radha is wheelchair dependent. P: Radha will be discharged when medically ready; anticipate she will transport via [facility]. She continues on IV antibiotics and steroids. Psychiatry consult ordered. CM will continue to offer support to patient and care team regarding discharge planning and disposition.
--- NOTE | 2018-12-03 13:58 | CMPROGNOTE_ITS ---
- If Service Date Differs Date of service: 12/03/18 Time of Service: 13:48 Care Management Progress Note S/O: CM met with Radha in the room she appears less short of breath she continues on oxygen which is her baseline. Radha is very tearful today it is her first holiday without her son Lucas. She is open with CM regarding her feelings and shares that she no longer has a reason to live. She denies suicidally she identifies the feelings as grieving thoughts. She states when her son was alive she had a purpose she does not feel she has a purpose at this time. CM provided support and active listening. Radha is willing to meet with as a consult and for recommendations. Radha does not feel that she is ready to return home today she remains on antibiotics. CM updated provider a consult will be ordered for and CM will also contact provider and notify of the consult. CM will continue to provide support to Radha throughout her stay. A: 63 year old female admitted to [facility] 11/29/18 for COPD Exacerbation. Radha has a hx of chronic COPD, oxygen dependent and multiple hospitalizations related to chronic disease. She receives support in the community through outpatient respiratory services. Radha is wheelchair dependent. P: Radha will be discharged when medically ready; anticipate she will transport via [facility]. She continues on IV antibiotics and steroids. Psychiatry consult ordered. CM will continue to offer support to patient and care team regarding discharge planning and disposition.
--- NOTE | 2018-12-03 14:22 | W.PM.PROGNOT ---
Date of Service Date of service: 12/03/18 Time of Service: 14:22 Assessment and Plan (1) Pneumonia: Current visit: No Status: Acute CAP, seen on CT, triggering acute exacerbation of COPD. Lost IV access - transition to PO azithromycin and ceftin. Transition steroids to PO. (2) Chronic obstructive lung disease: Current visit: No Status: Chronic In acute exacerbation; On baseline Home Oxygen. As above - transitioning abx and steroids to PO. Continue frequent Nebs. BiPAP as needed. Improving. Possible discharge home tomorrow if patient feels ready. (3) Recurrent UTI: Current visit: No Status: Chronic Urinalysis negative. No evidence of UTI on this admission. (4) Obstructive sleep apnea syndrome: Current visit: No Status: Chronic Continue BiPAP therapy QHS/whenever napping. Patient is very compliant. (5) Depression: Current visit: Yes Status: Chronic Consult psychiatry (6) DVT prophylaxis: Current visit: No Status: Acute SC Heparin (7) Advance directive on file: Current visit: No Status: Acute Full Code. Subjective Interval history since last seen: Ms Masterson states she is feeling better and coughing less, but she is not back to normal. She is at her baseline O2 (2L during the day, 3L via CPAP at night). She expresses difficulty dealing with the recent of her son. She spoke with case management about feeling hopeless/not having a reason to live since his , but denied suicidal ideation. Denies dizziness, states chest pain is a little bit better, denies nausea/vomiting/GERD. Exam Narrative Exam Narrative: General: Very pleasant middle-aged female, sitting in a chair, sad/tearful when talking about her son, breathing-tillman looks a little bit better. HEENT: EOMI, MMM Heart: RRR, no m/r/g Lungs: very quiet rhonchi at B bases/I can hear secretions; B upper lung dubose are more clear today GI: abdomen obese, nontender Exremities: BLE lymphedema, symmetric Objective Objective Clinical Data: Abnormal lab results 12/03/18 12/03/18 Range/Units 11:34 11:34 WBC 11.03 H (4.4-10.8) k/cumm RBC 5.25 H (4.00-5.20) m/cumm MPV 11.2 H (8.0-11.0) fL Absolute Neutrophils 9.25 H (1.2-6.7) k/cumm Sodium 135 L (136-145) mmol/L Chloride 97 L (98-107) mmol/L BUN 23 H (7-18) mg/dL Glucose 123 H (70-100) mg/dL Vital Signs Temperature 36.7 C 12/03/18 11:14 Temperature Source Tympanic 12/03/18 11:14 Pulse 85 12/03/18 11:14 Pulse Rhythm Regular 12/03/18 09:40 Pulse 90 12/01/18 16:40 Respiratory Rate 22 12/03/18 11:14 Respiratory Effort Incrsd Work of Breathing 12/03/18 09:40 Respiratory Depth Shallow 12/03/18 09:40 Respiratory Pattern Tachypnea 12/03/18 09:40 Blood Pressure 162/82 H 12/03/18 11:14 Blood Pressure Mean 106 12/02/18 07:58 Blood Pressure Position Supine 11/30/18 03:57 Pulse Oximetry 92 L 12/03/18 11:14 Oxygen Delivery Method Nasal Cannula 12/03/18 11:14 Oxygen Flow Rate 2 12/03/18 11:14 Fraction of Inspired Oxygen (FIO2) 30 11/29/18 13:24 Pain Level 0 12/02/18 10:48 Comment 12/02/18 15:35 Intake & Output 12/02/18 12/03/18 12/03/18 23:59 11:59 23:59 Intake Total 980 / 980 240 / 240 Balance 980 / 430 240 / 240 Weight 190 kg Intake: IV 320 / 320 Oral 660 / 660 240 / 240 Other: Urine Appearance Clear Clear Comment void x 1 in toilet void x 1 toilet pt voiding independently on toilet; pt noted to be in bathroom x 2 by this RN Voiding Methods Toilet Toilet Toilet Laboratory Results WBC 11.03 k/cumm (4.4-10.8) H 12/03/18 11:34 RBC 5.25 m/cumm (4.00-5.20) H 12/03/18 11:34 Hgb 14.9 g/dL (12.0-15.5) D 12/03/18 11:34 Hct 44.9 % (36.0-46.0) 12/03/18 11:34 MCV 85.5 fL (80-95) 12/03/18 11:34 MCH 28.4 pg (27.0-33.0) 12/03/18 11:34 MCHC 33.2 g/dL (32.0-36.0) 12/03/18 11:34 RDW 14.6 % (11.7-14.6) 12/03/18 11:34 Plt Count 300 x1000/uL (130-400) 12/03/18 11:34 MPV 11.2 fL (8.0-11.0) H 12/03/18 11:34 Immature Gran % 0.5 12/03/18 11:34 Neutrophils % 83.9 12/03/18 11:34 Lymphocytes % 11.2 12/03/18 11:34 Monocytes % 4.3 12/03/18 11:34 Eosinophils % 0.0 12/03/18 11:34 Basophils % 0.1 12/03/18 11:34 Absolute Neutrophils 9.25 k/cumm (1.2-6.7) H 12/03/18 11:34 Absolute Lymphocytes 1.24 k/cumm (1.2-3.4) 12/03/18 11:34 Absolute Monocytes 0.47 k/cumm (0.11-0.7) 12/03/18 11:34 Absolute Eosinophils 0.00 k/cumm (0.0-0.7) 12/03/18 11:34 Absolute Basophils 0.01 k/cumm (0.0-0.2) 12/03/18 11:34 PT 9.8 sec (9.3-11.0) 11/29/18 09:25 INR 1.0 (0.9-1.1) 11/29/18 09:25 APTT 25.3 sec (21.0-31.4) 11/29/18 09:25 D-Dimer 787 ng/mlFEU (<500) H 11/29/18 09:25 VBG pH 7.40 (7.32-7.43) 11/29/18 09:25 VBG pCO2 45 mm/Hg (34-47) 11/29/18 09:25 VBG pO2 45 mm/Hg (28-44) H 11/29/18 09:25 VBG HCO3 28 mmol/L (22-28) 11/29/18 09:25 VBG Total CO2 25 mmol/L (22-29) 11/29/18 09:25 VBG O2 Saturation 82 % (70-80) H 11/29/18 09:25 VBG Base Excess 3.1 mmol/L (-3-3) H 11/29/18 09:25 Sodium 135 mmol/L (136-145) L 12/03/18 11:34 Potassium 4.4 mmol/L (3.5-5.1) 12/03/18 11:34 Chloride 97 mmol/L (98-107) L 12/03/18 11:34 Carbon Dioxide 29.8 mmol/L (21.0-32.0) 12/03/18 11:34 Anion Gap 8.2 mmol/L (3-11) 12/03/18 11:34 BUN 23 mg/dL (7-18) H 12/03/18 11:34 Creatinine 0.79 mg/dL (0.55-1.02) 12/03/18 11:34 Estimated GFR/1.73 m2 >= 60.00 (mL/min/1.73m2) 12/03/18 11:34 Glucose 123 mg/dL (70-100) H 12/03/18 11:34 Calcium 8.7 mg/dL (8.5-10.1) 12/03/18 11:34 Magnesium 2.1 mg/dL (1.8-2.4) 12/03/18 11:34 Total Bilirubin 1.2 mg/dL (0.2-1.0) H 11/29/18 09:25 AST 19 U/L (15-37) 11/29/18 09:25 ALT 29 U/L (12-78) 11/29/18 09:25 Alkaline Phosphatase 97 U/L (46-116) 11/29/18 09:25 Troponin I < 0.02 ng/mL (0.00-0.06) 11/29/18 09:25 NT-Pro-B Natriuret Pep 54 pg/mL (-299) 11/29/18 09:25 Total Protein 7.8 g/dL (6.4-8.2) 11/29/18 09:25 Albumin 3.1 g/dL (3.4-5.0) L 11/29/18 09:25 Urine Color Yellow (Yellow) 11/30/18 10:29 Urine Clarity Sl cloudy 11/30/18 10:29 Urine pH 6.0 (5-8) 11/30/18 10:29 Ur Specific [place] 1.020 (1.005-1.025) 11/30/18 10:29 Urine Protein Negative mg/dL (Negative) 11/30/18 10:29 Urine Ketones Negative mg/dL (Negative) 11/30/18 10:29 Urine Blood Negative (Negative) 11/30/18 10:29 Urine Nitrite Negative (Negative) 11/30/18 10:29 Urine Bilirubin Negative (Negative) 11/30/18 10:29 Urine Urobilinogen 0.2 EU/dL (Up TO 0.2) 11/30/18 10:29 Ur Leukocyte Esterase Negative (Negative) 11/30/18 10:29 Urine Glucose Negative mg/dL (Negative) 11/30/18 10:29
[2018-12-03] MEDS: Azithromycin 250 MG TAB 500 MG PO (14:59)
[2018-12-03] MEDS: Cefuroxime 500 MG TAB PO (21:01)
[2018-12-03] MEDS: predniSONE 20 MG TAB 40 MG PO (21:01)
[2018-12-04] VITALS (16 sets, daily range): BP systolic 127–156; BP diastolic 69–88; PULSE 72–118; RESP 4–30; TEMP 36–37.3; O2SAT 93–100
[2018-12-04] MEDS: Albuterol/Ipratropium 3 ML UPD VIAL UPD ×6 (01:23→21:27)
--- NOTE | 2018-12-04 05:15 | NUR.NOTE ---
CJ the [facility] informed me that this patient was having chest pain. I assessed patient she state the pain to her chest is due to her excessive coughing and same is to the right side of chest none radiating. She is sleeping at the moment and does not wish to be disturbed until later in the morning. Patient was encouraged to call for assistance
[2018-12-04] MEDS: Acetaminophen 325 MG TAB PO ×3 (06:32→15:43)
[2018-12-04] MEDS: Clotrimazole 1% 15 GM TUBE TP (06:35)
[2018-12-04 07:19] LABS: Abs Immature Grans 0.06 k/cumm (0.0-0.09); Absolute Basophil Count 0.01 k/cumm (0.0-0.2); Absolute Eosinophil Count 0.01 k/cumm (0.0-0.7); Absolute Lymphocyte Count 1.92 k/cumm (1.2-3.4); Absolute Monocyte Count 0.92 k/cumm (0.11-0.7); Absolute Neutrophil Count 8.43 k/cumm (1.2-6.7); Basophils % 0.1; Eosinophils % 0.1; HCT 42.4 % (36.0-46.0); HGB 13.8 g/dL (12.0-15.5); Immature Grans % 0.5; Lymphocytes % 16.9; Mean Corp. HGB Concentration 32.5 g/dL (32.0-36.0); Mean Corpuscular Hemoglobin 27.9 pg (27.0-33.0); Mean Corpuscular Volume 85.8 fL (80-95); Mean Platelet Volume 11.4 fL (8.0-11.0); Monocytes % 8.1; Neutrophils % 74.3; Platelet Count 279 x1000/uL (130-400); RBC 4.94 m/cumm (4.00-5.20); RBC Distribution Width 14.7 % (11.7-14.6); White Blood Cell Count 11.35 k/cumm (4.4-10.8)
[2018-12-04 07:26] LABS: Anion Gap 8.1 mmol/L (3-11); BUN 25 mg/dL (7-18); CO2 28.9 mmol/L (21.0-32.0); CREATININE 0.75 mg/dL (0.55-1.02); Calcium 8.2 mg/dL (8.5-10.1); Chloride 99 mmol/L (98-107); Glucose 130 mg/dL (70-100); Magnesium 2.1 mg/dL (1.8-2.4); Potassium 4.4 mmol/L (3.5-5.1); Sodium 136 mmol/L (136-145)
[2018-12-04] MEDS: Budesonide/Formoterol 160/4.5 6 GM 60 PUFF INH IH ×2 (08:07→20:14)
[2018-12-04] MEDS: Magnesium Chloride 64 MG TABCR PO (08:44)
[2018-12-04] MEDS: Azithromycin 250 MG TAB 500 MG PO (08:44)
[2018-12-04] MEDS: Ascorbic Acid 500 MG TAB 1000 MG PO (08:44)
[2018-12-04] MEDS: Potassium Chloride 10 MEQ CAPCR 20 MEQ PO ×2 (08:44→20:06)
[2018-12-04] MEDS: Aspirin 325 MG TAB PO (08:44)
[2018-12-04] MEDS: Benzonatate 200 MG CAP PO ×3 (08:44→20:06)
[2018-12-04] MEDS: Furosemide 40 MG TAB PO (08:45)
[2018-12-04] MEDS: guaiFENesin 600 MG TABCR PO ×2 (08:45→20:06)
[2018-12-04] MEDS: predniSONE 20 MG TAB 40 MG PO (08:45)
[2018-12-04] MEDS: Pantoprazole 40 MG TABCR PO (08:45)
[2018-12-04] MEDS: buPROPion-CR 150 MG TABCR PO (08:45)
[2018-12-04] MEDS: Gabapentin 100 MG CAP 200 MG PO ×2 (08:45→20:06)
[2018-12-04] MEDS: Cefuroxime 500 MG TAB PO ×2 (08:45→20:06)
[2018-12-04] MEDS: Fluticasone NASAL SPRAY 16 GM BTL NS (08:46)
[2018-12-04] MEDS: Heparin 5,000 UNITS/ML VIAL 5000 UNITS SC ×3 (08:50→23:10)
--- NOTE | 2018-12-04 10:40 | NUR.NOTE ---
Nursing Note: 12/04/18 @ 1035, this scribe saw the call light was on for room 210. This scribe entered the room to come to find the patient hunched over the toilet sitting in her wheelchair. the patient was choking and gasping for air as she yelled my bi-pap isn't working. This scribe immediately called out for help. the primary RN the CC and RT all came into the room. RT was able to get the bi-pap to work and then RT requested that the MD needed to be present in the room.
--- NOTE | 2018-12-04 11:10 | DI.RAD_ITS ---
SYMPTOMS/DIAGNOSIS: RESPIRATORY DISTRESS PORTABLE CHEST: Basilar infiltrates could not be excluded. No effusions or pulmonary edema is seen. IMPRESSION: Limited exam. No acute abnormality.
[2018-12-04] MEDS: Normal Saline Flush 10 ML SYR IVP (11:18)
[2018-12-04] MEDS: Furosemide 20 MG/2 ML VIAL IVP (11:18)
[2018-12-04] MEDS: methylPREDNISolone SUCC 125 MG VIAL 60 MG IVP ×2 (11:18→20:07)
--- NOTE | 2018-12-04 11:21 | RESPIRATORY ---
12/04/18-Respponed to STAT call to Pt's room . Pt SOB on home unit. PLaced Duoneb inline with home unit. Pt reports she had a coughing attack and had a hard time recovering. Pt was requesting more pressure and has been transitioned to Draeger Pepper 30/20 @ 30% O2. Pt has recovered.
--- NOTE | 2018-12-04 13:24 | W.PSYCHCONSU ---
Date of service: 12/04/18 Time of Service: 12:30 History of Present Illness Narrative: Primary Care Provider: Alphonso Murphy MD Referred by: Information source: Patient, chart, rating scales Reason for consultation: History Of Present Illness: Radha Masterson is a 63 year old woman admitted 5 days ago for COPD exacerbation. She lost her 37 year old son to pneumonia about one month ago and is experiencing acute grief. She was his sole primary floor care specialist as he had cerebral palsy and she provided all his ADLs throughout his life. Today Radha stated straightforwardly that she lost her son and she doesn't know how to live without him. Much of the session she described the circumstances of his premature , early life, and the fun she had with him throughout his life. She states He was easy to take care of! She described that her son made the decision himself not to have mechanical ventilation, that he was transported home, and he in at home in his bed a couple days later. Radha believes she did the right thing in following his wishes. Mood: Radha reports being able to laugh and smile when she thinks about the good time with him but also feel sad at the same time. She has times when she doesn't think she wants to live but wants to go be with him. She states: I can't though because I have two grandchildren that I help take care of. She denies active suicidal ideation. Substances: - alcohol: none - tobacco: none - Marijuana: none - other illicits/pills: none Safety: - current suicidal/homicidal/violent ideations: none - guns in home or access to weapons: none PAST PSYCHIATRIC HISTORY: Hospitalizations: none Suicide attempts: none Prescribers: Dr. Murphy Medications: - bupropion XL 150mg daily - citalopram 20mg daily Therapist: none Social history: - lives with boyfriend who is not home during the day - takes care of a couple young grandchildren after school in her home. - REVIEW OF SYSTEMS: Constitutional: +fatigue Cardiovascular: No chest pains or dizziness Respiratory: + cough and shortness of breath, feels better after treatment Musculoskeletal: + weakness and trouble walking GI: No constipation, diarrhea, nausea, vomiting; appetite is fine Genitourinary: No dysuria, frequency of urination, hematuria Neurological: No weakness, seizures, numbness, tics, ataxia Psych: see above Endocrine: No cold or heat intolerance, polyuria, excessive thirst Hem/Lymph: No bruising, bleeding Allergies: see chart MENTAL STATUS EXAM: Constitutional: sitting in wheelchair with oxygen on, hospital clothing, appears. Attitude: cooperative Psychomotor: no retardation or agitation Speech: nonpressured, normal volume and prosody. No articulation problems noted. Associations: no looseness Thought process: linear, logical, goal directed Thought content without psychosis, delusions, obsessions No suicidal or homicidal ideations Hallucinations denied Mood: sad Affect: full, congruent with mood, able to smile and joke appropriately Attention/Concentration: intact Judgment/insight: fair/fair Oriented x 4 Language appropriate to age and education Fund of knowledge appropriate to age and education Memory intact to recent and remote events Other cognitive testing: none Assessment and Plan (1) Grief at loss of child: Current visit: Yes Status: Acute Radha Masterson is a 63 year old woman with past psychiatric history of depression admitted for acute COPD exacerbation whose son with cerebral palsy of pneumonia one month ago and 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 History and clinical exam are consistent with acute grief at loss of son. Depressive symptoms do not seem to be complicating the picture at this time and thus no recommendations for changes in her antidepressants are indicated. This visit was spent focused on her joys and sadness around her son and providing anticipatory guidance around living with grief and moving forward in life without her son. Patient expressed interest in my coming back tomorrow for a follow up conversation. Recommendations: - medical management of COPD - continue bupropion xl 150mg every morning as ordered. I will follow up with her tomorrow. [facility] Medical History Grief at loss of child (Acute) Varicose veins of lower extremity (Chronic) Low back pain with sciatica (Chronic 05/03/14) Sensorineural hearing loss, bilateral (Chronic 08/29/13) Morbid obesity (Chronic 04/05/13) Knee pain, bilateral (Chronic 07/23/14) Goiter, nontoxic, 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/14) Chronic obstructive lung disease (Chronic) Depressive disorder (Chronic) Insomnia with sleep apnea (Chronic) Obstructive sleep apnea syndrome (Chronic) Chronic headaches (Chronic) Urinary incontinence (Chronic) Recurrent UTI (Chronic) Hypercapnic respiratory failure (Resolved) Right ventricular dysfunction (Chronic) Pulmonary embolism (Resolved) Surgical History History of Surgical Procedure (Chronic) Fasciotomy, Foot (~1996) Replacement of total knee joint Social History Smoking/Tobacco Use Status: Former Tobacco Use Alcohol Intake: never Drug use: Never Do you feel safe in your relationship?: Yes Results Last Vital Signs Temp 37.3 C 12/04/18 11:15 Pulse 95 H 12/04/18 11:15 Resp 18 12/04/18 11:15 BP 150/84 H 12/04/18 11:15 Pulse Ox 96 12/04/18 11:15 Labs : 12/05/18 06:40 12/05/18 06:40 Laboratory Results - last 24 hr 12/04/18 12/04/18 06:53 06:53 WBC 11.35 H RBC 4.94 Hgb 13.8 Hct 42.4 MCV 85.8 MCH 27.9 MCHC 32.5 RDW 14.7 H Plt Count 279 MPV 11.4 H Immature Gran % 0.5 Neutrophils % 74.3 Lymphocytes % 16.9 Monocytes % 8.1 Eosinophils % 0.1 Basophils % 0.1 Absolute Neutrophils 8.43 H Absolute Lymphocytes 1.92 Absolute Monocytes 0.92 H Absolute Eosinophils 0.01 Absolute Basophils 0.01 Sodium 136 Potassium 4.4 Chloride 99 Carbon Dioxide 28.9 Anion Gap 8.1 BUN 25 H Creatinine 0.75 Estimated GFR/1.73 m2 >= 60.00 Glucose 130 H Calcium 8.2 L Magnesium 2.1
--- NOTE | 2018-12-04 15:52 | PT.INNT ---
Date of service: 12/04/18 Time of Service: 15:53 PT Notes 12/04/18 Held PT, per nsg, due to respiratory incident. Will attempt to resume PT services tomorrow morning, if appropriate.
--- NOTE | 2018-12-04 17:51 | PDOC.CMPRO ---
- If Service Date Differs Date of service: 12/04/18 Time of Service: 17:51 Care Management Progress Note S/O:Radha was unable to discharge home today due to increase shortness or breath. She was restarted on IV steroids and given a one time dose of lasix and chest xray was completed. She was able to meet with today and will meet with her again tomorrow. [facility] therapy has recommends pulmonary rehab three times a week for Radha and will assist her in obtaining a nebulizer for home use. CM to continue to provide support to Pt discharge planning and disposition. A: 63 year old female admitted to [facility] 11/29/18 for COPD Exacerbation. Radha has a hx of chronic COPD, oxygen dependent and multiple hospitalizations related to chronic disease. She receives support in the community through outpatient respiratory services. Radha is wheelchair dependent. P: Radha will be discharged when medically ready; anticipate she will transport via [facility]. She continues on IV steroids and oral antibiotics. Psychiatry consult done and appreciate continue follow up. CM will continue to offer support to patient and care team regarding discharge planning and disposition.
--- NOTE | 2018-12-04 17:56 | CMPROGNOTE_ITS ---
- If Service Date Differs Date of service: 12/04/18 Time of Service: 17:51 Care Management Progress Note S/O:Radha was unable to discharge home today due to increase shortness or breath. She was restarted on IV steroids and given a one time dose of lasix and chest xray was completed. She was able to meet with today and will meet with her again tomorrow. [facility] therapy has recommends pulmonary rehab three times a week for Rdaha and will assist her in obtaining a nebulizer for home use. CM to continue to provide support to Pt discharge planning and disposition. A: 63 year old female admitted to [facility] 11/29/18 for COPD Exacerbation. Radha has a hx of chronic COPD, oxygen dependent and multiple hospitalizations related to chronic disease. She receives support in the community through outpatient respiratory services. Radha is wheelchair dependent. P: Radha will be discharged when medically ready; anticipate she will transport via [facility]. She continues on IV steroids and oral antibiotics. Psychiatry consult done and appreciate continue follow up. CM will continue to offer support to patient and care team regarding discharge planning and disposition.
--- NOTE | 2018-12-04 19:04 | PGE_ITS ---
Date of Service Date of service: 12/04/18 Time of Service: 11:00 Assessment and Plan (1) Pneumonia: Current visit: No Status: Acute CAP, seen on CT, triggering acute exacerbation of COPD. Clinically, today was much worse. I have changed her steroids back to IV and increased the dose. Antibiotics can stay in PO form. Patient is not ready for discharge. On discharge, will need a nebulizer machine. (2) Chronic obstructive lung disease: Current visit: No Status: Chronic In acute exacerbation; worse. On baseline Home Oxygen. As above - steroids increased/converted back to IV. Continue frequent Nebs. BiPAP as needed. (3) Chronic respiratory failure with hypoxia and hypercapnia: Current visit: Yes Status: Chronic while O2 requirements are at baseline, clinically this is worse today - patient was upgraded to our BiPAP machine from her home unit. This is multifactorial - likely some component of fluid overload, but in addit ion CAP, COPD exacerbation, OHS, DAVID. Patient would benefit from outpatient pulmonary rehab on discharge. (4) Recurrent UTI: Current visit: No Status: Chronic Urinalysis negative. No evidence of UTI on this admission. (5) Obstructive sleep apnea syndrome: Current visit: No Status: Chronic Continue BiPAP therapy QHS/whenever napping. Patient is very compliant. (6) Depression: Current visit: Yes Status: Chronic Seen by psychiatry today - Dr Quigley will again see the patient tomorrow and get back to me with recommendations. Assistance appreciated. (7) DVT prophylaxis: Current visit: No Status: Acute SC Heparin (8) Advance directive on file: Current visit: No Status: Acute Full Code. Subjective Interval history since last seen: Called to bedside because the patient was found to be in severe respiratory distress after a coughing spell today. She had another spell like that last night. She felt better after a nebulizer treatment given through the BiPAP machine, which she pulled on herself to help her breathe. She has been coughing up clear sputum. She denies dizziness, chest p ain, nausea, vomiting. Exam Narrative Exam Narrative: General: Obese female, in acute respiratory distress, on BiPAP, which seems to be helping as the breathing is calming down. Having difficulty speaking during the episode HEENT: EOMI, MMM Heart: RRR, no m/r/g Lungs: Rhonchi and rales B, sounds significantly worse than yesterday GI: abdomen obese, nontender Exremities: BLE lymphedema, symmetric Objective Objective Clinical Data: Abnormal lab results 12/04/18 12/04/18 Range/Units 06:53 06:53 WBC 11.35 H (4.4-10.8) k/cumm RDW 14.7 H (11.7-14.6) % MPV 11.4 H (8.0-11.0) fL Absolute Neutrophils 8.43 H (1.2-6.7) k/cumm Absolute Monocytes 0.92 H (0.11-0.7) k/cumm BUN 25 H (7-18) mg/dL Glucose 130 H (70-100) mg/dL Calcium 8.2 L (8.5-10.1) mg/dL Vital Signs Temperature 36.7 C 12/04/18 16:14 Temperature Source Tympanic 12/04/18 16:14 Pulse 85 12/04/18 16:14 Pulse Rhythm Regular 12/04/18 08:21 Pulse 90 12/01/18 16:40 Respiratory Rate 12/04/18 16:14 Respiratory Effort 12/04/18 10:40 Respiratory Depth Shallow 12/04/18 08:21 Respiratory Pattern Tachypnea 12/04/18 10:40 Blood Pressure 149/82 H 12/04/18 16:14 Blood Pressure Mean 106 12/02/18 07:58 Blood Pressure Position Supine 11/30/18 03:57 Pulse Oximetry 93 L 12/04/18 16:14 Oxygen Delivery Method Nasal Cannula 12/04/18 16:14 Oxygen Flow Rate 12/04/18 16:14 Fraction of Inspired Oxygen (FIO2) 30 12/04/18 13:56 Pain Level 4 12/04/18 11:15 Comment 12/04/18 10:30 Intake & Output 12/03/18 12/04/18 12/04/18 23:59 11:59 23:59 Intake Total 540 / 780 1260 / 1770 510 / 1770 Balance 540 / 780 1260 / 1770 510 / 1770 Weight 189.8 kg Intake: IV 30 / 30 Oral 540 / 780 1260 / 1740 480 / 1740 Other: Urine Appearance Clear Comment patient uses toilet independently Pt voiding independently in toilet. Urine not seen at time of assessment. Pt denies sx. Stool Size Moderate Stool Characteristics Formed Brown Voiding Methods Toilet Toilet Laboratory Results WBC 11.35 k/cumm (4.4-10.8) H 12/04/18 06:53 RBC 4.94 m/cumm (4.00-5.20) 12/04/18 06:53 Hgb 13.8 g/dL (12.0-15.5) 12/04/18 06:53 Hct 42.4 % (36.0-46.0) 12/04/18 06:53 MCV 85.8 fL (80-95) 12/04/18 06:53 MCH 27.9 pg (27.0-33.0) 12/04/18 06:53 MCHC 32.5 g/dL (32.0-36.0) 12/04/18 06:53 RDW 14.7 % (11.7-14.6) H 12/04/18 06:53 Plt Count 279 x1000/uL (130-400) 12/04/18 06:53 MPV 11.4 fL (8.0-11.0) H 12/04/18 06:53 Immature Gran % 0.5 12/04/18 06:53 Neutrophils % 74.3 12/04/18 06:53 Lymphocytes % 16.9 12/04/18 06:53 Monocytes % 8.1 12/04/18 06:53 Eosinophils % 0.1 12/04/18 06:53 Basophils % 0.1 12/04/18 06:53 Absolute Neutrophils 8.43 k/cumm (1.2-6.7) H 12/04/18 06:53 Absolute Lymphocytes 1.92 k/cumm (1.2-3.4) 12/04/18 06:53 Absolute Monocytes 0.92 k/cumm (0.11-0.7) H 12/04/18 06:53 Absolute Eosinophils 0.01 k/cumm (0.0-0.7) 12/04/18 06:53 Absolute Basophils 0.01 k/cumm (0.0-0.2) 12/04/18 06:53 PT 9.8 sec (9.3-11.0) 11/29/18 09:25 INR 1.0 (0.9-1.1) 11/29/18 09:25 APTT 25.3 sec (21.0-31.4) 11/29/18 09:25 D-Dimer 787 ng/mlFEU (<500) H 11/29/18 09:25 VBG pH 7.40 (7.32-7.43) 11/29/18 09:25 VBG pCO2 45 mm/Hg (34-47) 11/29/18 09:25 VBG pO2 45 mm/Hg (28-44) H 11/29/18 09:25 VBG HCO3 28 mmol/L (22-28) 11/29/18 09:25 VBG Total CO2 25 mmol/L (22-29) 11/29/18 09:25 VBG O2 Saturation 82 % (70-80) H 11/29/18 09:25 VBG Base Excess 3.1 mmol/L (-3-3) H 11/29/18 09:25 Sodium 136 mmol/L (136-145) 12/04/18 06:53 Potassium 4.4 mmol/L (3.5-5.1) 12/04/18 06:53 Chloride 99 mmol/L (98-107) 12/04/18 06:53 Carbon Dioxide 28.9 mmol/L (21.0-32.0) 12/04/18 06:53 Anion Gap 8.1 mmol/L (3-11) 12/04/18 06:53 BUN 25 mg/dL (7-18) H 12/04/18 06:53 Creatinine 0.75 mg/dL (0.55-1.02) 12/04/18 06:53 Estimated GFR/1.73 m2 >= 60.00 (mL/min/1.73m2) 12/04/18 06:53 Glucose 130 mg/dL (70-100) H 12/04/18 06:53 Calcium 8.2 mg/dL (8.5-10.1) L 12/04/18 06:53 Magnesium 2.1 mg/dL (1.8-2.4) 12/04/18 06:53 Total Bilirubin 1.2 mg/dL (0.2-1.0) H 11/29/18 09:25 AST 19 U/L (15-37) 11/29/18 09:25 ALT 29 U/L (12-78) 11/29/18 09:25 Alkaline Phosphatase 97 U/L (46-116) 11/29/18 09:25 Troponin I < 0.02 ng/mL (0.00-0.06) 11/29/18 09:25 NT-Pro-B Natriuret Pep 54 pg/mL (-299) 11/29/18 09:25 Total Protein 7.8 g/dL (6.4-8.2) 11/29/18 09:25 Albumin 3.1 g/dL (3.4-5.0) L 11/29/18 09:25 Urine Color Yellow (Yellow) 11/30/18 10:29 Urine Clarity Sl cloudy 11/30/18 10:29 Urine pH 6.0 (5-8) 11/30/18 10:29 Ur Specific [place] 1.020 (1.005-1.025) 11/30/18 10:29 Urine Protein Negative mg/dL (Negative) 11/30/18 10:29 Urine Ketones Negative mg/dL (Negative) 11/30/18 10:29 Urine Blood Negative (Negative) 11/30/18 10:29 Urine Nitrite Negative (Negative) 11/30/18 10:29 Urine Bilirubin Negative (Negative) 11/30/18 10:29 Urine Urobilinogen 0.2 EU/dL (Up TO 0.2) 11/30/18 10:29 Ur Leukocyte Esterase Negative (Negative) 11/30/18 10:29 Urine Glucose Negative mg/dL (Negative) 11/30/18 10:29 CXR: Limited exam. No acute abnormality. (Per my read, the patient likely has a pleural effusion on the L and has evidence of cephalization. Inspiratory effort is poor.
[2018-12-05] VITALS (9 sets, daily range): BP systolic 116–164; BP diastolic 71–99; PULSE 70–90; RESP 4–21; TEMP 36–36.9; O2SAT 92–97
[2018-12-05] MEDS: methylPREDNISolone SUCC 125 MG VIAL 60 MG IVP (05:37)
[2018-12-05] MEDS: Normal Saline Flush 10 ML SYR IVP ×2 (05:38→12:15)
[2018-12-05] MEDS: Albuterol/Ipratropium 3 ML UPD VIAL UPD ×5 (06:31→22:39)
[2018-12-05 07:12] LABS: Abs Immature Grans 0.07 k/cumm (0.0-0.09); Absolute Basophil Count 0.01 k/cumm (0.0-0.2); Absolute Eosinophil Count 0.01 k/cumm (0.0-0.7); Absolute Lymphocyte Count 1.88 k/cumm (1.2-3.4); Absolute Neutrophil Count 10.44 k/cumm (1.2-6.7); Basophils % 0.1; Eosinophils % 0.1; HCT 43.9 % (36.0-46.0); HGB 14.5 g/dL (12.0-15.5); Immature Grans % 0.5; Lymphocytes % 13.9; Mean Corpuscular Hemoglobin 28.3 pg (27.0-33.0); Mean Corpuscular Volume 85.6 fL (80-95); Mean Platelet Volume 11.4 fL (8.0-11.0); Monocytes % 8.1; Neutrophils % 77.3; Platelet Count 290 x1000/uL (130-400); RBC 5.13 m/cumm (4.00-5.20); RBC Distribution Width 14.9 % (11.7-14.6); White Blood Cell Count 13.51 k/cumm (4.4-10.8)
[2018-12-05 07:13] LABS: Absolute Monocyte Count 1.09 k/cumm (0.11-0.7)
[2018-12-05] MEDS: Budesonide/Formoterol 160/4.5 6 GM 60 PUFF INH IH ×2 (07:16→20:38)
[2018-12-05 07:24] LABS: Anion Gap 6.1 mmol/L (3-11); BUN 32 mg/dL (7-18); CO2 29.9 mmol/L (21.0-32.0); Calcium 8.7 mg/dL (8.5-10.1); Chloride 101 mmol/L (98-107); Glucose 121 mg/dL (70-100); Magnesium 2.2 mg/dL (1.8-2.4); Potassium 4.4 mmol/L (3.5-5.1); Sodium 137 mmol/L (136-145)
[2018-12-05] MEDS: Fluticasone NASAL SPRAY 16 GM BTL NS (08:19)
[2018-12-05] MEDS: Magnesium Chloride 64 MG TABCR PO (08:19)
[2018-12-05] MEDS: Pantoprazole 40 MG TABCR PO (08:19)
[2018-12-05] MEDS: Cefuroxime 500 MG TAB PO ×2 (08:19→20:38)
[2018-12-05] MEDS: buPROPion-CR 150 MG TABCR PO (08:20)
[2018-12-05] MEDS: Azithromycin 250 MG TAB 500 MG PO (08:20)
[2018-12-05] MEDS: Aspirin 325 MG TAB PO (08:20)
[2018-12-05] MEDS: Ascorbic Acid 500 MG TAB 1000 MG PO (08:20)
[2018-12-05] MEDS: guaiFENesin 600 MG TABCR PO ×2 (08:20→20:37)
[2018-12-05] MEDS: Benzonatate 200 MG CAP PO ×3 (08:20→20:38)
[2018-12-05] MEDS: Furosemide 40 MG TAB PO (08:20)
[2018-12-05] MEDS: Gabapentin 100 MG CAP 200 MG PO ×2 (08:21→20:38)
[2018-12-05] MEDS: Potassium Chloride 10 MEQ CAPCR 20 MEQ PO ×2 (08:21→20:38)
[2018-12-05] MEDS: Heparin 5,000 UNITS/ML VIAL 5000 UNITS SC ×3 (08:21→23:17)
--- NOTE | 2018-12-05 08:38 | PDOC.CMPRO ---
Care Management Progress Note S/O: Radha met with yesterday and again this morning. She found the consult helpful and is agreeable to attending [facility] coordinated bereavement group and following up with Pulmonary Rehab. CM will continue to provide support for discharge planning and disposition. A: 63 year old female admitted to [facility] 11/29/18 for COPD Exacerbation. Radha has a hx of chronic COPD, oxygen dependent and multiple hospitalizations related to chronic disease. She receives support in the community through outpatient respiratory services. Radha is wheelchair dependent. P: Radha will be discharged when medically ready; anticipate she will transport via [facility]. Respiratory therapy recommends pulmonary rehab three times a week for Radha and will assist her in obtaining a nebulizer for home use. Anticipate she will switch to orals, continue to be monitored and discharge home as soon as tomorrow. CM will continue to offer support to patient and care team regarding discharge planning and disposition.
--- NOTE | 2018-12-05 08:57 | CMPROGNOTE_ITS ---
Care Management Progress Note S/O: Radha met with yesterday and again this morning. She found the consult helpful and is agreeable to attending [facility] coordinated bereavement group and following up with Pulmonary Rehab. CM will continue to provide support for discharge planning and disposition. A: 63 year old female admitted to [facility] 11/29/18 for COPD Exacerbation. Radha has a hx of chronic COPD, oxygen dependent and multiple hospitalizations related to chronic disease. She receives support in the community through outpatient respiratory services. Radha is wheelchair dependent. P: Radha will be discharged when medically ready; anticipate she will transport via [facility]. Respiratory therapy recommends pulmonary rehab three times a week for Radha and will assist her in obtaining a nebulizer for home use. Anticipate she will switch to orals, continue to be monitored and discharge home as soon as tomorrow. CM will continue to offer support to patient and care team regarding discharge planning and disposition.
--- NOTE | 2018-12-05 09:12 | PSYCO_ITS ---
Date of service: 12/05/18 Time of Service: 08:30 History of Present Illness Narrative: Events since initial consultation/last note: Overnight events: no significant events Medications: no changes Labs last 24 hours: Subjective: I slept well last night, better than in a long time. Our conversation yesterday helped. Radha reports deciding to take part in a bereavement group, to try it out at least, as recommended by Home Health nurse. Also has decided to take part in [facility]'s pulmonary rehab, knowing that having a regular activity outside of the house will be therapeutic. She states When I start feeling depressed I try to get out of the house an go around town. Sometimes that helps. I'm home alone now. I used to have my son with me all the time. She states: I know I'm going to have some good days and some bad days. that's just the way it is. I have to figure out how to live without my son. Last night had a coughing episode but got through it with less respiratory support. feels that her breathing is better today. REVIEW OF SYSTEMS: Constitutional: feels more rested today respiratory: as noted above Psych: see above MENTAL STATUS EXAM: Constitutional: sitting in wheelchair at table eating breakfast, wearing hospital clothing Attitude: cooperative Psychomotor: no retardation or agitation Speech: non-pressured, normal volume and prosody. No articulation problems noted. Associations: no looseness Thought process: linear, logical, goal directed Thought content without psychosis, delusions, obsessions No suicidal or homicidal ideations Hallucinations denied Mood: I feel better Affect: brighter than yesterday, less sad, more smiles and joking, full, euthymic Attention/Concentration: intact Judgment/insight: fair/fair Oriented x 4 Language appropriate to age and education Fund of knowledge appropriate to age and education Memory intact to recent and remote events Other cognitive testing: none Assessment and Plan (1) Grief at loss of child: Current visit: Yes Status: Acute Radha Masterson is a 63 year old woman with past psychiatric history of depression admitted for acute COPD exacerbation whose son with cerebral palsy of pneumonia one month ago and 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 History and clinical exam are consistent with acute grief at loss of son. Depressive symptoms do not seem to be complicating the picture at this time and thus no recommendations for changes in her antidepressants are indicated. Today she is expressing very appropriate grief reactions and processing, and is future oriented and planning how to engage in life while giving herself time to grieve. I strongly encouraged her engagement in pulmonary rehab in order to have a regular schedule outside of the house and to focus on self-care. I discussed with her that if she has worsening depression on top of grief, she can speak with Dr. Murphy who can be in touch with me for outpatient support. I also reminded her of Behavioral Health supports in the primary care setting as a possible resource. She has a reasonable plan of engaging with a bereavement group as a first step. No concerns for elevated risk for harm to self or others at this time. No concerns from mental health standpoint of her being discharge to home with appropriate outpatient supports for her physical and mental health needs. Recommendations: - continue bupropion xl 150mg - continue medical management of COPD Thank you very much for this consultation. Please feel free to contact me if further questions or concerns arise. Visit Statistics Total Visit Minutes: 25 Visit Time Allocation >50% of face to face visit spent in counseling (Extensive teaching, explanation and instructions. Counseling as appropriate. Review of plans, and discussion concerning medical problems dealt with at this visit. Discussion of benefits/risks of treatment, anticipated course of events, potential medication side effects, options, alternatives, and follow up plans. Questions were solicited and answered, and the patient verbalized understanding.), and/or coordination of care. 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) Chronic obstructive lung disease (Chronic) Depressive disorder (Chronic) Insomnia with sleep apnea (Chronic) Obstructive sleep apnea syndrome (Chronic) Chronic headaches (Chronic) Urinary incontinence (Chronic) Recurrent UTI (Chronic) Hypercapnic respiratory failure (Resolved) Right ventricular dysfunction (Chronic) Pulmonary embolism (Resolved) Surgical History History of Surgical Procedure (Chronic) Fasciotomy, Foot (~1996) Replacement of total knee joint Social History Smoking/Tobacco Use Status: Former Tobacco Use Alcohol Intake: never Drug use: Never Do you feel safe in your relationship?: Yes Results Last Vital Signs Temp 36.5 C 12/05/18 07:22 Pulse 81 12/05/18 07:22 Resp 21 12/05/18 07:22 BP 164/99 H 12/05/18 07:22 Pulse Ox 94 L 12/05/18 07:22 Labs : 12/05/18 06:40 12/05/18 06:40 Laboratory Results - last 24 hr 12/05/18 12/05/18 06:40 06:40 WBC 13.51 H RBC 5.13 Hgb 14.5 Hct 43.9 MCV 85.6 MCH 28.3 MCHC 33.0 RDW 14.9 H Plt Count 290 MPV 11.4 H Immature Gran % 0.5 Neutrophils % 77.3 Lymphocytes % 13.9 Monocytes % 8.1 Eosinophils % 0.1 Basophils % 0.1 Absolute Neutrophils 10.44 H Absolute Lymphocytes 1.88 Absolute Monocytes 1.09 H Absolute Eosinophils 0.01 Absolute Basophils 0.01 Sodium 137 Potassium 4.4 Chloride 101 Carbon Dioxide 29.9 Anion Gap 6.1 BUN 32 H Creatinine 0.70 Estimated GFR/1.73 m2 >= 60.00 Glucose 121 H Calcium 8.7 Magnesium 2.2
--- NOTE | 2018-12-05 12:43 | PT.INNT ---
Date of service: 12/05/18 Time of Service: 10:00 PT Notes 12/05/18 Patient refused morning PT session, as she reports that she is having difficulty catching her breath. This was reported to nsg. Will attempt to resume PT services this afternoon.
--- NOTE | 2018-12-05 15:03 | PGE_ITS ---
Date of Service Date of service: 12/05/18 Time of Service: 15:00 Assessment and Plan (1) Pneumonia: Current visit: No Status: Acute Noted on CT, triggering acute exacerbation of COPD. She was started back on IV steroids yesterday. Her respiratory status is improving. Transition back to oral steroids today. Continue PO antibiotics. (2) Chronic obstructive lung disease: Current visit: No Status: Chronic Continue antibiotics and transition to oral steroids as above. Continue nebulizer treatments and supplemental oxygen. Uses 2 L of oxygen at baseline at home. Follow-up PFTs next week with respiratory therapy. Consider pulmonary rehab. (3) Chronic respiratory failure with hypoxia and hypercapnia: Current visit: Yes Status: Chronic Refer for pulmonary rehab at time of discharge. (4) Recurrent UTI: Current visit: No Status: Chronic Urinalysis negative. No evidence of UTI on this admission. (5) Obstructive sleep apnea syndrome: Current visit: No Status: Chronic Continue using BiPAP while asleep. (6) Grief at loss of child: Current visit: Yes Status: Acute She has been seen by psychiatry, Dr. Chinchilla. She is reacting appropriately to the loss of her child. She is considering joining a bereavement group. (7) DVT prophylaxis: Current visit: No Status: Acute Subcutaneous heparin. (8) Discharge planning issues: Current visit: Yes Status: Acute She is a full code. This case was discussed with Dr. Rajan who is in agreement. Subjective Interval history since last seen: Radha reports feeling better today, she continues to cough, however, she has not had any more severe coughing episodes like yesterday in the night prior. Her cough is productive of clear sputum. She has shortness of breath with activity, no shortness of breath at rest. She occasionally feels wheezy. She reports feeling crackling in her lungs. She has chest discomfort only with deep breathing, this is reproducible with palpation. She denies dizziness, fever, chills, and chest pressure. Her appetite is improving, she denies nausea, vomiting or diarrhea. She is having regular bowel movements. She is voiding without dysuria or hematuria. Exam Narrative Exam Narrative: General: Obese, female, sitting up in her motorized wheelchair, in no acute distress. HEENT: Extraocular movements intact, mucous membranes moist. Neck: Supple, no JVD Cardiovascular: Heart has regular rate and rhythm, no murmur appreciated. Respiratory: Lung sounds diminished throughout, no wheezing or rales. Some shortness of breath with continued talking. Abdomen: Normoactive bowel sounds, soft, nontender on palpation. Extremities: Symmetrical lymphedema to bilateral lower extremities. Pedal pulses palpable bilaterally, trace nonpitting edema to bilateral feet. Objective Objective Clinical Data: Abnormal lab results 12/05/18 12/05/18 Range/Units 06:40 06:40 WBC 13.51 H (4.4-10.8) k/cumm RDW 14.9 H (11.7-14.6) % MPV 11.4 H (8.0-11.0) fL Absolute Neutrophils 10.44 H (1.2-6.7) k/cumm Absolute Monocytes 1.09 H (0.11-0.7) k/cumm BUN 32 H (7-18) mg/dL Glucose 121 H (70-100) mg/dL Vital Signs Temperature 36.0 C L 12/05/18 11:24 Temperature Source Tympanic 12/05/18 11:24 Pulse 81 12/05/18 11:24 Pulse Rhythm Regular 12/04/18 22:11 Pulse 90 12/01/18 16:40 Respiratory Rate 20 12/05/18 11:24 Respiratory Effort 12/04/18 22:11 Respiratory Depth Shallow 12/04/18 08:21 Respiratory Pattern Tachypnea 12/04/18 22:11 Blood Pressure 134/81 12/05/18 11:24 Blood Pressure Mean 106 12/02/18 07:58 Blood Pressure Position Supine 11/30/18 03:57 Pulse Oximetry 96 12/05/18 11:24 Oxygen Delivery Method Nasal Cannula 12/05/18 11:24 Oxygen Flow Rate 2 12/05/18 11:24 Fraction of Inspired Oxygen (FIO2) 30 12/04/18 13:56 Pain Level 4 12/04/18 11:15 Comment 12/04/18 10:30 Intake & Output 12/04/18 12/05/18 12/05/18 23:59 11:59 23:59 Intake Total 510 / 1770 270 / 510 240 / 510 Balance 510 / 1770 270 / 510 240 / 510 Weight 189.2 kg Intake: IV 30 / 30 30 / 30 Oral 480 / 1740 240 / 480 240 / 480 Other: Voiding Methods Toilet Laboratory Results WBC 13.51 k/cumm (4.4-10.8) H 12/05/18 06:40 RBC 5.13 m/cumm (4.00-5.20) 12/05/18 06:40 Hgb 14.5 g/dL (12.0-15.5) 12/05/18 06:40 Hct 43.9 % (36.0-46.0) 12/05/18 06:40 MCV 85.6 fL (80-95) 12/05/18 06:40 MCH 28.3 pg (27.0-33.0) 12/05/18 06:40 MCHC 33.0 g/dL (32.0-36.0) 12/05/18 06:40 RDW 14.9 % (11.7-14.6) H 12/05/18 06:40 Plt Count 290 x1000/uL (130-400) 12/05/18 06:40 MPV 11.4 fL (8.0-11.0) H 12/05/18 06:40 Immature Gran % 0.5 12/05/18 06:40 Neutrophils % 77.3 12/05/18 06:40 Lymphocytes % 13.9 12/05/18 06:40 Monocytes % 8.1 12/05/18 06:40 Eosinophils % 0.1 12/05/18 06:40 Basophils % 0.1 12/05/18 06:40 Absolute Neutrophils 10.44 k/cumm (1.2-6.7) H 12/05/18 06:40 Absolute Lymphocytes 1.88 k/cumm (1.2-3.4) 12/05/18 06:40 Absolute Monocytes 1.09 k/cumm (0.11-0.7) H 12/05/18 06:40 Absolute Eosinophils 0.01 k/cumm (0.0-0.7) 12/05/18 06:40 Absolute Basophils 0.01 k/cumm (0.0-0.2) 12/05/18 06:40 PT 9.8 sec (9.3-11.0) 11/29/18 09:25 INR 1.0 (0.9-1.1) 11/29/18 09:25 APTT 25.3 sec (21.0-31.4) 11/29/18 09:25 D-Dimer 787 ng/mlFEU (<500) H 11/29/18 09:25 VBG pH 7.40 (7.32-7.43) 11/29/18 09:25 VBG pCO2 45 mm/Hg (34-47) 11/29/18 09:25 VBG pO2 45 mm/Hg (28-44) H 11/29/18 09:25 VBG HCO3 28 mmol/L (22-28) 11/29/18 09:25 VBG Total CO2 25 mmol/L (22-29) 11/29/18 09:25 VBG O2 Saturation 82 % (70-80) H 11/29/18 09:25 VBG Base Excess 3.1 mmol/L (-3-3) H 11/29/18 09:25 Sodium 137 mmol/L (136-145) 12/05/18 06:40 Potassium 4.4 mmol/L (3.5-5.1) 12/05/18 06:40 Chloride 101 mmol/L (98-107) 12/05/18 06:40 Carbon Dioxide 29.9 mmol/L (21.0-32.0) 12/05/18 06:40 Anion Gap 6.1 mmol/L (3-11) 12/05/18 06:40 BUN 32 mg/dL (7-18) H 12/05/18 06:40 Creatinine 0.70 mg/dL (0.55-1.02) 12/05/18 06:40 Estimated GFR/1.73 m2 >= 60.00 (mL/min/1.73m2) 12/05/18 06:40 Glucose 121 mg/dL (70-100) H 12/05/18 06:40 Calcium 8.7 mg/dL (8.5-10.1) 12/05/18 06:40 Magnesium 2.2 mg/dL (1.8-2.4) 12/05/18 06:40 Total Bilirubin 1.2 mg/dL (0.2-1.0) H 11/29/18 09:25 AST 19 U/L (15-37) 11/29/18 09:25 ALT 29 U/L (12-78) 11/29/18 09:25 Alkaline Phosphatase 97 U/L (46-116) 11/29/18 09:25 Troponin I < 0.02 ng/mL (0.00-0.06) 11/29/18 09:25 NT-Pro-B Natriuret Pep 54 pg/mL (-299) 11/29/18 09:25 Total Protein 7.8 g/dL (6.4-8.2) 11/29/18 09:25 Albumin 3.1 g/dL (3.4-5.0) L 11/29/18 09:25 Urine Color Yellow (Yellow) 11/30/18 10:29 Urine Clarity Sl cloudy 11/30/18 10:29 Urine pH 6.0 (5-8) 11/30/18 10:29 Ur Specific [place] 1.020 (1.005-1.025) 11/30/18 10:29 Urine Protein Negative mg/dL (Negative) 11/30/18 10:29 Urine Ketones Negative mg/dL (Negative) 11/30/18 10:29 Urine Blood Negative (Negative) 11/30/18 10:29 Urine Nitrite Negative (Negative) 11/30/18 10:29 Urine Bilirubin Negative (Negative) 11/30/18 10:29 Urine Urobilinogen 0.2 EU/dL (Up TO 0.2) 11/30/18 10:29 Ur Leukocyte Esterase Negative (Negative) 11/30/18 10:29 Urine Glucose Negative mg/dL (Negative) 11/30/18 10:29
[2018-12-05] MEDS: Levalbuterol 0.63 MG/3 ML UPD VIAL UPD (15:15)
--- NOTE | 2018-12-05 15:18 | PT.INNT ---
Date of service: 12/05/18 Time of Service: 15:18 PT Notes 12/05/18 Held afternoon PT session, per RT and per request of the patient, as patient is experiencing a respiratory issue. Will attempt to resume PT services tomorrow morning.
--- NOTE | 2018-12-05 15:29 | CHAPLAIN ---
Radha was sitting up, playing a game on her phone when I visited. She told me she'd had good, helpful conversations with Dr. Chinchilla. She said she plans to attend bereavement support group offered by [facility], at least once. She said she doesn't like talking in front of others, and I suggested that she probably wouldn't be forced to talk if she didn't want to, but that it might be helpful to hear from other parents who are dealing with the of a child. She remembers Rev. Liberty Villar, the rn case manager hospice, who facilitates the group, and likes her, so it was helpful to make that connection. We talked about her making plans to get through an hour at a time if she needs, or a few minutes at a time if needed, and also how our physical health and emotional health can be connected. Radha told me about when Lucas was born, and weighted about 2 pounds, and still only weighted about 20 pounds when he was 9. She also also talked about the doctors who have provided care for Lucas, especially Dr. Michel who was Lucas's doctor for decades. Radha was teary at times. She seems to have good recognition of how this will be a difficult time for her and that adjusting to her life with Lucas, and without her role as his caregiver, will be challenging, but she can identify strategies that will help and people who can support her.
[2018-12-05] MEDS: predniSONE 20 MG TAB 60 MG PO (20:37)
[2018-12-05] MEDS: Acetaminophen 325 MG TAB PO (20:44)
[2018-12-06 05:53] VITALS: RESP 4; RESP 8
[2018-12-06] MEDS: Albuterol/Ipratropium 3 ML UPD VIAL UPD ×3 (05:53→14:00)
[2018-12-06 07:25] VITALS: O2SAT 92
[2018-12-06] MEDS: Budesonide/Formoterol 160/4.5 6 GM 60 PUFF INH IH (07:26)
[2018-12-06 07:40] VITALS: BP 167/75; PULSE 104; RESP 22; TEMP 36.2; O2SAT 93
[2018-12-06] MEDS: Acetaminophen 325 MG TAB PO (07:53)
[2018-12-06 09:34] LABS: HCT 46.8 % (36.0-46.0); HGB 15.2 g/dL (12.0-15.5); Mean Corp. HGB Concentration 32.5 g/dL (32.0-36.0); Mean Corpuscular Volume 86.2 fL (80-95); Mean Platelet Volume 11.6 fL (8.0-11.0); Platelet Count 294 x1000/uL (130-400); RBC 5.43 m/cumm (4.00-5.20); RBC Distribution Width 15.1 % (11.7-14.6); White Blood Cell Count 18.65 k/cumm (4.4-10.8)
[2018-12-06 09:38] LABS: Anion Gap 6.4 mmol/L (3-11); BUN 30 mg/dL (7-18); CO2 30.6 mmol/L (21.0-32.0); CREATININE 0.74 mg/dL (0.55-1.02); Calcium 8.6 mg/dL (8.5-10.1); Chloride 98 mmol/L (98-107); Glucose 149 mg/dL (70-100); Potassium 4.3 mmol/L (3.5-5.1); Sodium 135 mmol/L (136-145)
[2018-12-06 11:25] VITALS: BP 143/69; PULSE 77; RESP 22; TEMP 36.2; O2SAT 93
[2018-12-06] MEDS: Nystatin POWDER 60 GM JAR TP (11:40)
[2018-12-06] MEDS: Fluticasone NASAL SPRAY 16 GM BTL NS (11:41)
[2018-12-06] MEDS: predniSONE 20 MG TAB 60 MG PO (11:41)
[2018-12-06] MEDS: Furosemide 40 MG TAB PO (11:41)
[2018-12-06] MEDS: Potassium Chloride 10 MEQ CAPCR 20 MEQ PO (11:42)
[2018-12-06] MEDS: Magnesium Chloride 64 MG TABCR PO (11:42)
[2018-12-06] MEDS: Aspirin 325 MG TAB PO (11:42)
[2018-12-06] MEDS: Benzonatate 200 MG CAP PO ×2 (11:43→14:28)
[2018-12-06] MEDS: Pantoprazole 40 MG TABCR PO (11:43)
[2018-12-06] MEDS: buPROPion-CR 150 MG TABCR PO (11:44)
[2018-12-06] MEDS: Ascorbic Acid 500 MG TAB 1000 MG PO (11:44)
[2018-12-06] MEDS: Gabapentin 100 MG CAP 200 MG PO (11:44)
[2018-12-06] MEDS: Heparin 5,000 UNITS/ML VIAL 5000 UNITS SC (11:45)
[2018-12-06] MEDS: Azithromycin 250 MG TAB 500 MG PO (11:45)
[2018-12-06] MEDS: guaiFENesin 600 MG TABCR PO (11:45)
[2018-12-06] MEDS: Cefuroxime 500 MG TAB PO (11:45)
--- NOTE | 2018-12-06 14:02 | W.PM.DS.N ---
Date of service: 12/06/18 Time of Service: 14:02 DS: Diagnosis Discharge Diagnosis (1) Pneumonia: Status: Acute (2) Chronic obstructive lung disease: Status: Chronic (3) Chronic respiratory failure with hypoxia and hypercapnia: Status: Chronic (4) Recurrent UTI: Status: Chronic (5) Obstructive sleep apnea syndrome: Status: Chronic (6) Grief at loss of child: Status: Acute Discharge Plan Disposition Patient Disposition: HOME Condition: Improving Discharge Details Reason For Visit: COPD EXACERBATION Admit Date/Time: 11/29/18 13:21 Admit Provider: Marco Manjarrez Attending Provider: Marco Manjarrez Primary Care Provider: Alphonso Murphy Hospital Course Hospital Course: Radha Masterson is a pleasant 63 year old female with a past medical history significant for oxygen dependent COPD, Morbid Obesity with DAVID on BiPAP therapy, pulmonary HTN and RV Systolic Dysfunction, Multinodular Goiter, Depression, Recurrent UTIs, and a history of PE in the past. She presented to the ED on 11/29/18 in respiratory distress, she reported onset of a cough 2 days prior with dyspnea. In the ED, she was found to be hypoxic despite her usual supplemental oxygen, she had mild leukocytosis and her chest CT showed evidence of potential infiltrates vs. Atelectasis. She was admitted to the hospital for further evaluation and treatment. She received a full 7 day course of antibiotics. She was initiated on azithromycin and ceftriaxone, and as she improved, she was transitioned to oral azithromycin and ceftin. She was initiated on IV steroids and transitioned to oral steroids. The first time she transitioned to oral steroids, clinically, she appeared to be in more respiratory distress and was placed back on IV steroids. She was also given a dose of IV lasix with improvement in her symptoms. The day prior to discharge, she again transitioned to oral prednisone and tolerated the transition well. She will require a long steroid taper. She will be discharged home with a nebulizer machine to continue PRN nebulizer treatments at home. At the time of discharge, she conitnues to have leukocytosis in the setting of systemic steroids. She is mildly short of breath with exertion, she reports feeling much better. Her lungs are without rales or wheezing. She is eager for discharge home. She will have follow up CBC in 5 days (Tuesday12/11/18). She is referred for Pulmonary Function testing. Consider pulmonary rehab. She was also seen by Psychiatry, Dr. Chinchilla due to concern for depression related to the recent of her child. Dr. Chinchilla reports that the patient appears to be grieving appropriately. The patient verbalized interest in attending a bereavement support group. Mrs. Masterson will follow up with her PCP next week as scheduled. Home Meds and New Rx's Prescriptions: New benzonatate 200 mg Capsule 200 mg PO TID Qty: 15 RF: 0 furosemide 40 mg Tablet 40 mg PO DAILY Qty: 7 RF: 0 zinc oxide 20 % Ointment 30 g topical TID Qty: 0 RF: 0 pantoprazole 40 mg Tablet,Delayed Release (Dr/Ec) 40 mg PO DAILY@0730 Qty: 30 RF: 0 clotrimazole 1 % Cream 30 g topical TID Qty: 0 RF: 0 Symbicort 160-4.5 mcg/actuation Hfa Aerosol Inhaler 2 puff Inhalation BID Qty: 1 RF: 0 vits A and D-white pet-lanolin Ointment 30 g topical TID Qty: 0 RF: 0 guaifenesin [Mucinex] 600 mg Tablet Extended Release 12hr 600 mg PO BID Qty: 0 RF: 0 prednisone 10 mg tablet 10 mg PO DIRECTED Qty: 56 RF: 0 Continued ascorbic acid (vitamin C) 1,000 MG tablet 1,000 mg PO DAILY RF: 0 Aerochamber Mini 1 EACH spacer 1 ea Inhalation PRN Qty: 1 RF: 0 BiPAP Inhalation Gas 5 l IN DIRECTED RF: 0 oxygen Inhalation 2 l Intranasal DIRECTED RF: 0 clotrimazole 45 GM cream 45 gm Topical BID prn Qty: 45 RF: 2 nystatin (bulk) 1 EACH powder 1 applic Topical BID PRN Qty: 60 RF: 2 silver sulfadiazine 20 GM cream 1 applic Topical BID PRNQty: 60 RF: 2 potassium chloride 10 MEQ capsule, extended release 2 tab-cap PO BID Qty: 180 RF: 4 citalopram [Celexa] 20 MG tablet 20 mg PO DAILY Qty: 30 RF: 11 gabapentin 100 MG capsule 2 cap PO BID Qty: 60 RF: 11 albuterol sulfate [ProAir HFA] 8.5 GM HFA aerosol inhaler 1 - 2 puff Inhalation Q6H PRN Qty: 1 RF: 11 fluticasone propionate [Flonase Allergy Relief] 9.9 ML spray,suspension 1 spray NS DAILY Qty: 1 RF: 2 magnesium chloride [Mag 64] 64 MG tablet,delayed release (DR/EC) 64 mg PO DAILY Qty: 30 RF: 11 bupropion HCl (smoking deter) 150 MG tablet extended release 12 hr 150 mg PO QAM Qty: 30 RF: 11 triamcinolone acetonide 15 GM cream 1 appful Topical BID PRNQty: 30 RF: 0 aspirin 325 MG tablet 325 mg PO DAILY Qty: 0 RF: 0 ipratropium-albuterol 0.5 mg-3 mg(2.5 mg base)/3 mL solution for nebulization 3 ml IH QID MDD 4 nebs Qty: 180 RF: 3 Discontinued guaifenesin [Mucinex] 600 MG tablet extended release 12hr 1 - 2 tab PO Q12H PRN Qty: 30 RF: 2 Discharge Instructions Instructions: COPD (Chronic Obstructive Pulmonary Disease) (DC), Community Acquired Pneumonia (DC), Pulmonary Function Tests (DC), Pulmonary Rehabilitation (DC) Additional Instructions: Take Prednisone as follows: take 6 tabs two times per day for 2 days, then decrease to 6 tabs one time daily x2 days, then decrease to 4 tabs x2 days, then decrease to 3 tabs x2 days, then decrease to 2 tabs x2 days then 1 tablet x2 days then stop. You need to have follow up blood work on Tuesday12/11/18. Use nebulizer treatments for shortness of breath and/or wheezing. Follow up with your PCP as scheduled. A referral has been sent for Pulmonary function testing. Consider pulmonary rehab. Consider bereavement group. Take care! Stand Alone Forms: Nursing Discharge Form Referrals: Alphonso Murphy [Primary Care Provider] - 12/13/18 1:00 pm Activity:: Activity as Tolerated Equipment/Supplies:: Nebulizer machine. Diet:: Heart Healthy diet. Discharge Orders Discharge Orders: Discharge Order (Routine); Ordered 12/06/18 Ordered By: Sallie Long Other Ambulatory Orders: Complete Blood Count No Diff (Routine) Timeframe: 20181211 Location: Determined by Patient Ordered By: Sallie Long PFT Spirometry (Outpt) (ONCE) Timeframe: 20181212 Location: Determined by Patient Ordered By: Sallie Long Exam Narrative Exam Narrative: General: Obese, female, sitting up in her motorized wheelchair, in no acute distress. HEENT: Extraocular movements intact, mucous membranes moist. Neck: Supple, no JVD Cardiovascular: Heart has regular rate and rhythm, no murmur appreciated. Respiratory: Lung sounds diminished throughout, no wheezing or rales. Some shortness of breath with continued talking. Abdomen: Normoactive bowel sounds, soft, nontender on palpation. Extremities: Symmetrical lymphedema to bilateral lower extremities. Pedal pulses palpable bilaterally, trace nonpitting edema to bilateral feet. DS: Data Vitals/I&O Vitals and I&O: Vital Signs Temperature 36.2 C L 12/06/18 11:25 Temperature Source Tympanic 12/06/18 11:25 Pulse 77 12/06/18 11:25 Pulse Rhythm Regular 12/06/18 00:02 Pulse 90 12/01/18 16:40 Respiratory Rate 22 12/06/18 11:25 Respiratory Effort Labored 12/06/18 00:02 Respiratory Depth Shallow 12/06/18 00:02 Respiratory Pattern Tachypnea 12/06/18 00:02 Blood Pressure 143/69 H 12/06/18 11:25 Blood Pressure Mean 106 12/02/18 07:58 Blood Pressure Position Supine 11/30/18 03:57 Pulse Oximetry 93 L 12/06/18 11:25 Oxygen Delivery Method Nasal Cannula 12/06/18 11:25 Oxygen Flow Rate 2 12/06/18 11:25 Fraction of Inspired Oxygen (FIO2) 30 12/04/18 13:56 Pain Level 7 12/06/18 07:53 Comment 12/04/18 10:30 Intake & Output 12/05/18 12/06/18 12/06/18 23:59 11:59 23:59 Intake Total 1020 / 1290 930 / 930 Balance 1020 / 1290 930 / 930 Intake: IV 30 / 30 Oral 1020 / 1260 900 / 900 Other: Urine Appearance Clear Clear Completed studies during hospitalization [Text1]: 11/29/18: PORTABLE AP CHEST: The lungs are free of gross infiltrate. The heart is within normal limits in size. There is no evidence of overt congestive failure or pneumonia. PE CT: CT angiography was performed with multi slice acquisition and multi planar and 3D reconstruction. The study was conducted according to the usual protocol with an intravenous administration of 100 cc of Omnipaque 350. The image quality is suboptimal due to the patient's body habitus. There are no gross central pulmonary emboli with nothing to suggest a saddle embolus or emboli in the main right or left pulmonary artery. The segmental branches are poorly seen. Note is made of a small bilateral pleural effusion. There are regions of increased density involving the lung bases, right more prominent than left, which could represent atelectasis or an acute pneumonitis. The heart is not enlarged. There is no pericardial effusion. There is no evidence of an aortic aneurysm or dissection. SUMMARY: Limited examination due to the patient's body habitus revealing no evidence of central pulmonary emboli. There are small bilateral pleural effusions and lower lobe densities, which could represent regions of infiltration and/or atelectasis. 12/04/18: PORTABLE CHEST: Basilar infiltrates could not be excluded. No effusions or pulmonary edema is seen. IMPRESSION: Limited exam. No acute abnormality. Labs on day of discharge: Labs from last 24 hours 12/06/18 12/06/18 09:01 09:01 WBC 18.65 H D RBC 5.43 H Hgb 15.2 Hct 46.8 H MCV 86.2 MCH 28.0 MCHC 32.5 RDW 15.1 H Plt Count 294 MPV 11.6 H Sodium 135 L Potassium 4.3 Chloride 98 Carbon Dioxide 30.6 Anion Gap 6.4 BUN 30 H Creatinine 0.74 Estimated GFR/1.73 m2 >= 60.00 Glucose 149 H Calcium 8.6 PFSH Medical History Grief at loss of child (Acute) Varicose veins of lower extremity (Chronic) Low back pain with sciatica (Chronic 05/03/14) Sensorineural hearing loss, bilateral (Chronic 08/29/13) Morbid obesity (Chronic 04/05/13) Knee pain, bilateral (Chronic 07/23/14) Goiter, nontoxic, 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/14) Chronic obstructive lung disease (Chronic) Depressive disorder (Chronic) Insomnia with sleep apnea (Chronic) Obstructive sleep apnea syndrome (Chronic) Chronic headaches (Chronic) Urinary incontinence (Chronic) Recurrent UTI (Chronic) Hypercapnic respiratory failure (Resolved) Right ventricular dysfunction (Chronic) Pulmonary embolism (Resolved) Surgical History History of Surgical Procedure (Chronic) Fasciotomy, Foot (~1996) Replacement of total knee joint Family History Mother Diabetes Personal history of malignant neoplasm Father Personal history of malignant neoplasm Grandfather No problems noted. Grandfather No problems noted. Grandmother No problems noted. Grandmother No problems noted. Social History Smoking/Tobacco Use Status: Former Tobacco Use Alcohol Intake: never Drug use: Never Do you feel safe in your relationship?: Yes
--- NOTE | 2018-12-06 14:09 | PDOC.CMDIS ---
- If Service Date Differs Date of service: 12/06/18 Time of Service: 14:09 LACE Index Scoring Tool - Questions: Length of Stay (in days): 7 - 13 Acuity (Admit via E.D.?): Yes Comorbidities: Congestive Heart Failure, Chronic Pulmonary Disease E.D. Visits: 3 - Answers: Total Score: 16 Risk of Readmission: High Risk Care Management Discharge Reason for Hospitalization: COPD Exacerbation Discharge Plan: Radha is being discharged home today, she has agreed to pulmonary rehab as outpatient. She has a follow up with RT on 12/14/18 RCT was scheduled for that appointment. Radha will attend the grief support group through home health. Radha declines home health servcies at this time. She will receive a new nebulizer coordinated by RT. She will transport home via [facility] wheelchair van cooridanted by CM. She will follow up with primary care as directed. Patient/Family Education Needs: Discharge education, limitations and follow up plan of care including self management and ask me three. Services Needed at Discharge: DME Agency, Respiratory Therapy, Respiratory Care Services, Transportation
[2018-12-06 15:15] VITALS: BP 147/81; PULSE 88; RESP 20; TEMP 37; O2SAT 94
--- NOTE | 2018-12-07 07:59 | INDS_ITS ---
Date of service: 12/06/18 Time of Service: 12:30 PT Notes Date: December 06, 2018 Referring Doctor: Trish Rajan MD Precautions: O2 dependent Patient Profile/Admitting Diagnosis: Radha is a 63 year old female admitted on 11/29/18 secondary to COPD exacerbation secondary to pneumonia. Social History/Home Situation: Radha resides alone in [facility]. She reports that she recently lost her disabled son that has lived with her his entire life. She reports independence with her ADL's. She does utilize a electric chair for ambulation in the community and majority of the time in the home. She notes that she does utilize a walker for short distances only. She relies on [facility] for transportation. She is able to independently transfer, perform ADL's, cook, etc. She admits to getting short of breath easily at baseline. Current Functional Limitations: Shortness of breath with exertion Equipment Owned/DME: electric w/c, home oxygen, BIPAP, commode, hospital bed, walker, updraft machine, ramp to enter her home, trapeze to assist with her bed mobility Subjective: Radha reports she is anxious to be discharged. It has been recommended that she continued with pulmonary rehab 3x/week. She is uncertain if she is wanted to do this, she admits to depression since the loss of her son who lived with her, so getting out of the house is psychologically challenging for her. Objective: General Observation: O2 via nasal canula on 2 liters, sitting in electric chair. Becomes SOB of quickly with activity, but demonstrates good energy conservation technqiues, such as sitting, deferring talking, until she recovers. ROM: RUE: AROM WNL L UE: AROM WNL R LE AROM WFL - limited by obesity LLE: AROM WFL - limited by obesity STRENGTH: R UE: 4+/5 throughout L UE: 4+/5 throughout R LE: 4/5 - limited by obesity LLE: 4/5 - limited by obesity BED MOBILITY/TRANSFERS: Sit-stand: I Stand-sit: I Bed mobility: I GAIT: 50 ft in room with 02 2 liters via nasal canula. Radha was able to carry on conversation throughout ambulation in room with mild SOB, stopping conversation and ambulation as needed for energy consevation and to catch breath. Supervision only with use of FWW. BALANCE: Static sitting: Normal Dynamic Sitting: Normal Static Standing: Good Dynamic Standing: Fair [id number]: Complete minimal exercise, as documented on flow sheet, with the ultimate intent of seeing how patients breathing tolerated activity. ASSESSMENT: Pt is a 63 yr old female admitted with chronic obstructive pulmonary disease exacerbation and pneumonia in setting of severe restrictive disease, morbid obesity, chronic low back pain, chronic peripheral edema, cor pulmonale right heart failure, depression, obstructive sleep apnea, hypoventilation syndrome, nocturnal Bipap 5 L, lower extremity edema. Patient mobility restricted at this time due to dyspnea with any prolonged exertion. She did not participate in many PT sessions during her stay, due to her denial. She continues to demonstrate poor tolerance to physical exertion, but has ability to identify breathing strain, and use energy conservation techniques and rest from activity to recover. Demonstrating safety with basic transfers today, and feel she will safe to return home, with the expectation to return for pulmonary rehabilitation 3x/week to improve her SOB deficit. GOALS Goals x1 week 1.Supine-sit: HOB flat, I MET 2.Sit-Supine: HOB flat, I MET 3.Sit-Stand: I with bariatric FWW MET 4.Stand-sit: I MET 5.Bed-chair: I with bariatric FWW MET 6.Chair-bed: I with bariatric FWW MET 7.Gait: S with bariatric FWW [id number] NOT MET, achieves 50ft. Patient to be participating in pulmonary rehabilitation, to improve activity tolerance. 8.I with home exercise program for LE Strengthening MET PLAN OF CARE/TREATMENT PLAN: Discharged home, with pulmonary rehabilitation to follow. Treatment time: 20 minutes
== END 2018-12-06 16:20 | disposition home or self-care (01) | DRG 194 ==
LOC: ER 13:51 → ICU 14:33 → MS 12-02 10:43
PROVIDERS: Nurse Practitioner; Admitting Provider Internal Medicine; Emergency Provider Student in an Organized Health Care Education/Training Program; PCP Family Medicine; Visit Provider Internal Medicine
DX: J18.9 Pneumonia, unspecified organism (principal); J44.0 Chronic obstructive pulmonary disease with (acute) lower respiratory infection; J44.1 Chronic obstructive pulmonary disease with (acute) exacerbation; J96.11 Chronic respiratory failure with hypoxia; J96.12 Chronic respiratory failure with hypercapnia; J98.11 Atelectasis; Z68.45 Body mass index [BMI] 70 or greater, adult; G47.33 Obstructive sleep apnea (adult) (pediatric); E66.01 Morbid (severe) obesity due to excess calories; F43.21 Adjustment disorder with depressed mood; Z99.81 Dependence on supplemental oxygen; Z86.711 Personal history of pulmonary embolism; Z87.891 Personal history of nicotine dependence
CPT/HCPCS: 36415; 71275; 80048; 80053; 82805; 85027; 93005; 94640; 96365; 96366; 96367; 96368; 96375; 97162; 97530; 99222; 99232; 99239; 99253; 99254; 99285; J1650; 71045; 81003; 83735; 83880; 84484; 85025; 85379; 85610; 85730; 87070; 87205; 93010; 94660; J0456; J0696; J1644; J1941; J2930; J3490; J7512; J7614; J7620

== ENCOUNTER 2018-12-11 12:14 | Outpatient (CLI) | payer MEDICARE, MEDICAID, SELFPAY ==
[2018-12-11 12:36] LABS: HCT 42.8 % (36.0-46.0); HGB 13.9 g/dL (12.0-15.5); Mean Corp. HGB Concentration 32.5 g/dL (32.0-36.0); Mean Corpuscular Hemoglobin 28.5 pg (27.0-33.0); Mean Corpuscular Volume 87.9 fL (80-95); Mean Platelet Volume 10.7 fL (8.0-11.0); Platelet Count 207 x1000/uL (130-400); RBC 4.87 m/cumm (4.00-5.20); RBC Distribution Width 15.5 % (11.7-14.6); White Blood Cell Count 13.62 k/cumm (4.4-10.8)
== END 2018-12-11 12:34 ==
PROVIDERS: PCP Family Medicine; Visit Provider Nurse Practitioner
DX: J18.9 Pneumonia, unspecified organism (principal)
CPT/HCPCS: 36415; 85027

== ENCOUNTER 2018-12-13 14:19 | Outpatient (CLI) | payer MEDICARE, MEDICAID, SELFPAY ==
--- NOTE | 2018-12-13 14:20 | DI.RAD_ITS ---
SYMPTOMS/DIAGNOSIS: CHEST PAIN, COPD, R097.9, J44.9 CHEST X-RAY, FRONTAL AND LATERAL VIEWS: Comparison is 12/04/18. The heart size and pulmonary vasculature are within normal limits. The study is limited due to patient body habitus. Atelectatic changes are seen in the lungs. No focal consolidating infiltrate, effusion or pneumothorax is identified. Degenerative changes are seen in the spine. IMPRESSION: Limited examination. No definite acute pulmonary process.
== END 2018-12-13 14:39 ==
PROVIDERS: PCP Family Medicine; Visit Provider Family Medicine
DX: R07.9 Chest pain, unspecified (principal); J44.9 Chronic obstructive pulmonary disease, unspecified
CPT/HCPCS: 71046

== ENCOUNTER 2018-12-18 00:36 | Outpatient (CLI) | payer MEDICARE, MEDICAID, SELFPAY ==
--- NOTE | 2018-12-18 09:30 | MERGEMPI_ITS ---
*[facility]* *[facility]* [address] [place] [address] Myocardial Perfusion Imaging - SPECT Regadenoson Date of study: 12/18/2018 *PATIENT PRESENTATION* Height: 162.6cm (64in) Blood Pressure: Weight: 190kg (418lb) BSA: 3.07m^2 Referring physician: Samy Lopez MD Ordering physician: Alphonso Murphy Summary: 1. Myocardial perfusion imaging: No imaging performed. Pt too large for scanner. Indication: R07.9. History: Patient's presenting symptoms: asymptomatic. REASON FOR VISIT: PATIENT REPORTS EXPERIENCING CHEST PAIN SINCE BEING ACUTELY ILL WITH PNEUMONIA AND COPD THREE WEEKS AGO. CHEST PAIN WAS INITIALLY STERNAL DURING ILLNESS, NOW LOCATED LEFT STERNAL AND NONRADIATING. CHEST PAIN IS DESCRIBED 9/10, STABBING OR HEAVY INITIALLY AND CHANGING TO A DULL ACHE. CHEST PAIN OCCURS AT REST, LASTS A COUPLE MINUTES, AND RESOLVES WITHOUT INTERVENTION. PATIENT ALSO C/O OCCASIONAL DIZZINESS, NOT ASSOCIATED WITH CHEST PAIN EPISODES. PAST MEDICAL HISTORY: MORBID OBESITY, OXYGEN DEPENDENT COPD, DAVID, DEPRESSION, CHRONIC RESPIRATORY FAILURE, PNEUMONIA, RIGHT VENTRICULAR DYSFUNCTION, HYPOKALEMIA, PULMONARY EMBOLISM, LEFT VENTRICULAR HYPERTROPHY, MULTINODULAR GOITER, FAMILY HISTORY: NONE. SMOKING STATUS: 3 PPD FOR 40 YEARS. QUIT IN 2009. EXERCISE ROUTINE: NONE. PMH: Asthma. Risk factors: Current tobacco use. Obesity. Cholesterol: 190mg/dl. HDL: 41mg/dl. LDL: 129mg/dl. Triglycerides: 112mg/dl. ALLERGIES: HYDROCODONE, OXYCODONE, MORPHINE. MEDICATIONS: PREDNISONE 10-40MG, DAILY. POTASSIUM CHLORIDE 2 TAB, BID. PANTOPRAZOLE 40MG, DAILY. MAGNESIUM CHLORIDE 64MG, DAILY. LEVOFLOXACIN 750MG, DAILY. IPRATROPIUM-ALBUTEROL 3ML IH, QID. GABAPENTIN 2 CAP, BID. FUROSEMIDE 40MG, DAILY.FLONASE 1 SPRAY,DAILY. CITALOPRAM 20MG, DAILY. BUPROPION HCL 150MG, QAM. SYMBICORT 2 PUFF, DAILY. ASPIRIN 325MG, DAILY. VITAMIN C `,000MG, DAILY. PROAIR HFA 1-2 PUFF, PRN. Imaging Technique: Protocol: Regadenoson. Acquisition: Gated SPECT; stress. The patient was imaged in the supine position. Attenuation correction used. Isotope administration: Stress. Tc[99m]-sestamibi. Dose: 33mCi. Injection time: 11:10 AM. Baseline ECG: SINUS RHYTHM. HEART RATE 75 BPM. Stress protocol: +--------+--+ + + !Stage !HR!BP (mmHg) !Comments ! +--------+--+ + + !Baseline!75!132/70 (91)! ! +--------+--+ + + !1 min !83!100/60 (73)!Inject Regadenoson.! +--------+--+ + + !3 min !79!104/70 (81)! ! +--------+--+ + + !6 min !79!120/70 (87)! ! +--------+--+ + + * Stress results: The rate-pressure product for the peak heart rate and blood pressure was 9900mm Hg/min. Stress ECG: MPI STRESS TEST ENDED IN 6 MIN WHEN EFFECTS OF REGADENOSON INJECTION SUBSIDED. HYPOTENSIVE RESPONSE TO REGADENOSON INJECTION. APPROPRIATE HEART RATE RESPONSE. PATIENT REPORTS 4/10 STABBING LEFT STERNAL CHEST PAIN WITH INJECTION, RESOLVED BY MINUTE 3 POST INJECTION. NO ECTOPY NOTED. NO SIGNIFICANT ST SEGMENT CHANGES. Myocardial perfusion: Imaging information: gated. No imaging performed. Pt too large for scanner. Study data: Samy Lopez MD supervised and was readily available during the procedure. This study was interpreted by [facility]. Study status: Routine. Consent: The risks, benefits, and alternatives to the procedure were explained to the patient and informed consent was obtained. Procedure: Initial setup. A baseline ECG was recorded. Surface ECG leads and manual cuff blood pressure measurements were monitored. Heart sounds: Normal. Lung sounds: Normal. Regadenoson stress test. Stress testing was performed, with regadenoson by intravenous bolus, for a total dose of 0.4mgover 10.00sec, followed by a 5ml saline flush. The infusion was terminated due to per protocol. Study completion: All catheters inserted during the procedure were removed. The patient tolerated the procedure well and was discharged from the lab. Discharge: The patient left the laboratory in stable condition. Birthdate: Patient birthdate: 1955. Sex: Gender: female. Study date: Study date: 12/18/2018. Study time: 00:01 AM. Electronically signed by Samy Lopez MD 12/18/2018 18:40
[2018-12-18] MEDS: Regadenoson 0.4 MG/5 ML SYR IVP (12:31)
== END 2018-12-18 00:56 ==
PROVIDERS: PCP Family Medicine; Visit Provider Family Medicine
DX: R07.9 Chest pain, unspecified (principal); R42 Dizziness and giddiness; J44.9 Chronic obstructive pulmonary disease, unspecified; E66.9 Obesity, unspecified; Z99.81 Dependence on supplemental oxygen; Z87.891 Personal history of nicotine dependence
CPT/HCPCS: 93016; 93018; J2785

== ENCOUNTER 2018-12-22 10:24 | Outpatient (CLI) | payer MEDICARE, MEDICAID, SELFPAY ==
[2018-12-22 12:57] LABS: TSH (W/Ref FT4) 1.35 uIU/mL (0.358-3.74)
== END 2018-12-22 10:44 ==
PROVIDERS: PCP Family Medicine; Visit Provider Family Medicine
DX: R68.89 Other general symptoms and signs (principal)
CPT/HCPCS: 36415; 84443

== ENCOUNTER 2018-12-28 02:26 | Outpatient (CLI) | payer MEDICARE, MEDICAID, SELFPAY ==
--- NOTE | 2018-12-28 13:06 | PFT_ITS ---
PULMONARY FUNCTION TEST REPORT DATE OF SERVICE: December 28, 2018 REQUESTING PROVIDER: Alphonso Murphy M.D. Spirometry shows no evidence of obstructive airways disease, no bronchodilator response. Lung volumes incomplete testing, the patient was unable to complete plethysmography maneuver due to being wheelchair-bound. Diffusion capacity moderately reduced, which is normal when corrected to alveolar volume. IMPRESSION: No evidence of obstructive airways disease. While the pattern is suggestive of possible underlying restriction, one cannot further comment on that without total lung capacity measurement. There is also moderate diffusion defect, which is normal when corrected to alveolar volume. This constellation of findings can also be seen in respiratory neuromuscular dysfunction. Therefore if either of those entities are suspected, further workup for those is recommended. Clinical correlation therefore recommended. When this study was compared to previous one from 10/11/12, the patient has a total of 70 cc's decline in FVC; FEV1 has declined by 180 cc's. VJ/dml D/
[2018-12-28] MEDS: Inhaler, Assist Device 1 EACH MC (15:21)
[2018-12-28] MEDS: Albuterol HFA 18 GM 200 PUFF INH IH (15:22)
== END 2018-12-28 02:46 ==
PROVIDERS: PCP Family Medicine; Visit Provider Family Medicine
DX: R06.09 Other forms of dyspnea (principal); J44.9 Chronic obstructive pulmonary disease, unspecified; Z87.891 Personal history of nicotine dependence
CPT/HCPCS: 94060; 94729

== ENCOUNTER 2019-01-23 08:04 | Outpatient (RCR) | payer MEDICARE, MEDICAID, SELFPAY | END 2019-02-11 23:59 | disposition home or self-care (01) | LOC: PRC 08:04 | PROVIDERS: PCP Family Medicine; Visit Provider Family Medicine | DX: Z51.89 Encounter for other specified aftercare (principal) ==

== ENCOUNTER 2019-03-13 00:30 | Outpatient (CLI) | payer MEDICARE, MEDICAID, SELFPAY ==
--- NOTE | 2019-03-13 10:09 | MERGE_ITS ---
*[facility]* *[facility]* [address] [place] [address] Date of study: 03/13/2019 Transthoracic Echocardiography M-mode, complete 2D, complete spectral Doppler, and color Doppler *STUDY CONCLUSIONS* Summary: 1. Left ventricle: The cavity size was normal. Wall thickness was normal. Systolic function was normal. The estimated ejection fraction was 60-65%. Although no diagnostic regional wall motion abnormality was identified, this possibility cannot be completely excluded on the basis of this study. 2. Left atrium: The atrium was mildly dilated. 3. Right ventricle: The cavity size was normal. Wall thickness was normal. Systolic function was normal. 4. Pulmonary arteries: Pulmonary systolic pressure was increased, in the range of 45mm Hg to 50mm Hg. *PATIENT PRESENTATION* Height: 160cm (63in ) S/D Pressure: 93 / 47 Weight: 190.5kg (419.1lb ) BSA: 3.05m^2 Test start time: 10:20 AM. Test stop time: 11:20 AM. PERFORMING Unknown CONSULTING Alphonso Murphy ORDERING Alphonso Murphy REFERRING Alphonso Murphy PERFORMING [facility] ASIC VERIFICATION ENGINEER RT Charles Degroot)[place] (CT) *PROCEDURE DATA* Procedure information: This study was interpreted by [facility]. Pertinent images and digital data are archived for permanent storage and are available for subsequent review. Comparison was made to the study of 01/04/2017. Study status: Routine. Transthoracic echocardiography. M-mode, complete 2D, complete spectral Doppler, and color Doppler. A Transthoracic Echocardiogram was performed. Scanning was performed from the parasternal, apical, subcostal, and suprasternal notch acoustic windows. Images were obtained using an [id number] cardiac ultrasound machine. Image quality was fair. Study completion: The patient tolerated the procedure well. There were no complications. History: PMH: Worsening SOB. PAH i27.21. *CARDIAC ANATOMY* Left ventricle: The cavity size was normal. Wall thickness was normal. Systolic function was normal. The estimated ejection fraction was 60-65%. Although no diagnostic regional wall motion abnormality was identified, this possibility cannot be completely excluded on the basis of this study. Diastolic parameters were not diagnostic. Aortic valve: Poorly visualized. Normal thickness leaflets. Mobility was not restricted. Doppler: Transvalvular velocity was within the normal range. There was no stenosis. There was no significant regurgitation. VTI ratio of LVOT to aortic valve: 0.64. Valve area (VTI): 2.4cm^2. Indexed valve area (VTI): 0.8cm^2/m^2. Peak velocity ratio of LVOT to aortic valve: 0.58. Valve area (Vmax): 2.2cm^2. Indexed valve area (Vmax): 0.7cm^2/m^2. Mean velocity ratio of LVOT to aortic valve: 0.61. Valve area (Vmean): 2.3cm^2. Indexed valve area (Vmean): 0.7cm^2/m^2. Mean gradient (S): 8.2mm Hg. Peak gradient (S): 13.3mm Hg. Aorta: Aortic root: The aortic root was normal in size. Ascending aorta: The ascending aorta was normal in size. Mitral valve: Mildly calcified annulus. Mobility was not restricted. Doppler: Transvalvular velocity was within the normal range. There was no evidence for stenosis. There was no significant regurgitation. Valve area by pressure half-time: 3.8cm^2. Indexed valve area by pressure half-time: 1.2cm^2/m^2. Peak gradient (D): 5.6mm Hg. Left atrium: The atrium was mildly dilated. Right ventricle: The cavity size was normal. Wall thickness was normal. Systolic function was normal. Pulmonic valve: Doppler: Transvalvular velocity was within the normal range. There was no evidence for stenosis. There was no significant regurgitation. Peak gradient (S): 4.5mm Hg. Tricuspid valve: Structurally normal valve. Doppler: Transvalvular velocity was within the normal range. There was no evidence for stenosis. There was mild regurgitation. Pulmonary artery: Pulmonary systolic pressure was increased, in the range of 45mm Hg to 50mm Hg. Right atrium: The atrium was normal in size. Pericardium: There was no pericardial effusion. Systemic veins: Inferior vena cava: Well visualized. The vessel was patent and normal in size. The respirophasic diameter changes were in the normal range (greater than or equal to 50%). Baseline ECG: Normal sinus rhythm. Measurements Left ventricle Value 01/04/2017 Reference LV ID, ED, PLAX 5.4 cm 5.9 3.5 - 6.0 LV ID, ES, PLAX 3.4 cm 4.3 2.1 - 4.0 LV PW thickness, ED, PLAX 1.2 cm 1.2 LV end-diastolic volume, 76 ml 1-p A2C LV ejection fraction, 1-p 70 % A2C LV end-diastolic volume, 82 ml 1-p A4C LV ejection fraction, 1-p 58 % A4C LV e', lateral 0.137 m/sec LV E/e', lateral 9 LV e', medial 0.11 m/sec LV E/e', medial 11 LV e', average 0.123 m/sec LV E/e', average 10 Ventricular septum Value 01/04/2017 Reference IVS thickness, ED, PLAX 1.3 cm 1.4 LVOT Value 01/04/2017 Reference LVOT ID, A-P 2.2 cm 2.1 LVOT area 3.7 cm^2 3.6 LVOT peak velocity, S 1.07 m/sec LVOT mean velocity, S 0.84 m/sec LVOT VTI, S 25.4 cm LVOT peak gradient, S 4.5 mm Hg LVOT mean gradient, S 3 mm Hg Stroke volume (SV), LVOT 95 ml DP Stroke index (SV/bsa), 31 ml/m^2 LVOT DP Aortic valve Value 01/04/2017 Reference Aortic valve peak 1.8 m/sec velocity, S Aortic valve mean 1.4 m/sec velocity, S Aortic valve VTI, S 40.0 cm Aortic mean gradient, S 8.2 mm Hg Aortic peak gradient, S 13.3 mm Hg VTI ratio, LVOT/AV 0.64 Aortic valve area, VTI 2.4 cm^2 Velocity ratio, peak, 0.58 LVOT/AV Aortic valve area, peak 2.2 cm^2 velocity Velocity ratio, mean, 0.61 LVOT/AV Aortic valve area, mean 2.3 cm^2 velocity Aortic valve area/bsa, 0.7 cm^2/m^2 mean velocity Aorta Value 01/04/2017 Reference Aortic root ID, ED 3.2 cm 3.6 Ascending aorta ID, A-P, S 3.2 cm 3.1 Left atrium Value 01/04/2017 Reference LA ID, A-P, ES 4.8 cm LA ID/bsa, A-P 1.6 cm/m^2 <=2.2 LA volume/bsa, ES, 1-p A4C 31 ml/m^2 40 LA volume, ES, 2-p 68 ml LA volume/bsa, ES, 2-p 22 ml/m^2 LA/aortic root ratio 1.5 1.38 Mitral valve Value 01/04/2017 Reference Mitral E-wave peak 1.18 m/sec 1.12 velocity Mitral A-wave peak 1.13 m/sec 1.13 velocity Mitral deceleration time 200 ms 150 - 230 Mitral pressure half-time 58 ms 63 Mitral peak gradient, D 5.6 mm Hg 5 Mitral E/A ratio, peak 1.04 0.99 Mitral valve area, PHT, DP 3.8 cm^2 3.5 Pulmonary veins Value 01/04/2017 Reference Pulmonary vein peak 0.82 m/sec velocity, S Pulmonary vein peak 0.73 m/sec velocity, D Pulmonary vein velocity 1.12 ratio, peak, S/D Pulmonary vein A-wave 0.34 m/sec reversal peak velocity Tricuspid valve Value 01/04/2017 Reference Tricuspid regurg peak 3.2 m/sec 3.3 velocity Tricuspid peak RV-RA 41.6 mm Hg 42.9 gradient Right atrium Value 01/04/2017 Reference RA area, ES, A4C (H) 22.9 cm^2 26 8.3 - 19.5 Pulmonic valve Value 01/04/2017 Reference Pulmonic peak gradient, S 4.5 mm Hg Legend: (L) and (H) zaida values outside specified reference range. I have personally reviewed the images and have reviewed and edited the reported findings. Electronically signed by Pacheco Marcus 03/13/2019 14:32
== END 2019-03-13 00:50 ==
PROVIDERS: PCP Family Medicine; Visit Provider Family Medicine
DX: I27.21 Secondary pulmonary arterial hypertension (principal); R06.02 Shortness of breath; J44.9 Chronic obstructive pulmonary disease, unspecified
CPT/HCPCS: 93306

== ENCOUNTER 2019-03-20 14:56 | Emergency (ER) | payer MEDICARE, MEDICAID, SELFPAY ==
[2019-03-20 15:20] VITALS: BP 131/56; PULSE 85; RESP 16; TEMP 37.2; O2SAT 95
--- NOTE | 2019-03-20 15:55 | ED.GENADUL_ITS ---
Discharge Plan Disposition Patient Disposition: HOME Condition: Stable Discharge Details Chief Complaint: Orthopedic Clinical Impression: Injury of wrist Primary Care Provider: Alphonso Murphy ED Provider: Mariana Garland Home Meds and New Rx's Prescriptions: Continued citalopram [Celexa] 20 mg tablet 20 mg PO DAILY Qty: 30 RF: 11 fluticasone propionate [Flonase Allergy Relief] 50 mcg/actuation s pray,suspension 1 spray NS DAILY Qty: 1 RF: 2 gabapentin 100 mg capsule 200 mg PO BID Qty: 60 RF: 11 magnesium chloride [Mag 64] 64 mg tablet,delayed release (DR/EC) 64 mg PO DAILY Qty: 30 RF: 11 potassium chloride 10 mEq capsule, extended release 20 meq PO BID Qty: 180 RF: 4 triamcinolone acetonide 0.1 % cream 1 applic Topical BID PRN (Reason: rash on legs) Qty: 30 RF: 2 albuterol sulfate [ProAir HFA] 90 mcg/actuation HFA aerosol inhaler 1 - 2 puff Inhalation Q6H PRN Qty: 1 RF: 11 Symbicort 160-4.5 mcg/actuation HFA aerosol inhaler 2 puff Inhalation BID Qty: 1 RF: 0 clotrimazole 1 % cream 1 applic topical TID Qty: 30 RF: 2 nystatin 100,000 unit/gram powder 1 applic TP BID PRN (Reason: intertrigo) Qty: 30 RF: 5 ascorbic acid (vitamin C) 1,000 MG tablet 1,000 mg PO DAILY RF: 0 (DME) Aerochamber Mini 1 EACH spacer 1 ea Inhalation PRN Qty: 1 RF: 0 BiPAP Inhalation Gas 5 l IN DIRECTED RF: 0 oxygen Inhalation 2 l Intranasal DIRECTED RF: 0 clotrimazole 45 GM cream 45 gm Topical BID prn Qty: 45 RF: 2 silver sulfadiazine 20 GM cream 1 applic Topical BID PRNQty: 60 RF: 2 aspirin 325 MG tablet 325 mg PO DAILY Qty: 0 RF: 0 furosemide 40 mg Tablet 40 mg PO DAILY Qty: 7 RF: 0 ipratropium-albuterol 0.5 mg-3 mg(2.5 mg base)/3 mL solution for nebulization 3 ml IH QID MDD 4 nebs Qty: 180 RF: 3 Discharge Instructions Instructions: Wrist Injury (ED), Wrist Sprain (ED) Additional Instructions: Please return immediately to the emergency department if you develop any new or worsening symptoms or if you become otherwise concerned. It is extremely important that you call as soon as possible to make an appointment to be seen in follow-up for this visit your primary care doctor. Referrals: Alphonso Murphy [Primary Care Provider] - Discharge Data Discharge Date/Time-TO BE ENTERED AT DEPARTURE: 03/20/19 17:33 Medical Decision Making Radha Masterson is a 63-year-old woman with a history of COPD, obesity who presented to the emergency department with right wrist and hand pain after falling forward out of her wheelchair yesterday. On exam patient is well and nontoxic appearing. She has tenderness to palpation over the ulnar aspect of the right wrist and over the fourth and fifth metacarpals. No edema or overlying skin changes. No other tenderness of the right forearm. Patient has pain with supination and with flexion/extension of the right wrist. Painless full range of motion of the right elbow and shoulder. She has full range of motion of the digits, brisk cap refill of the digits. Radial pulses intact and symmetric. Normal motor and sensation of the right hand. Concern for possible wrist/hand fracture. Exam/history is not consistent with neurovascular compromise, proximal forearm/elbow fracture, other acute emergent life threatening process. Plan for x-rays right wrist, right hand. X-rays negative for fracture, question scapholunate ligamentous sprain, which is not consistent with patient's exam. Plan for wrist splint. I had a lengthy discussion with the patient regarding return to emergency department precautions, home care, importance of outpatient follow-up. Patient verbalized understanding the plan was amenable. All questions were answered. Patient was discharged home with clear plan for outpatient follow-up. Medical Records Medical records reviewed: Yes I reviewed the patient's medical records. Imaging Data Radiologic Study: Attestation: I personally reviewed and interpreted this imaging study as follows: Radiologist's impression: EXAM: XR Right Hand EXAM DATE/TIME: 03/20/2019 4:21 PM CLINICAL HISTORY: 63 years old, female; Pain; Hand; Right; Patient HX: Trauma, foosh TECHNIQUE: Imaging protocol: XR Right hand. Views: 3 or more views. COMPARISON: No relevant prior studies available. FINDINGS: There's mild widening of the scapholunate interval suspicious for scapholunate ligament sprain. There are degenerative arthritic changes within the radiocarpal, triscaphe and basal joints. There are degenerative changes throughout the metacarpal, phalangeal and interphalangeal joints of all digits. No acute fracture or dislocation is identified. IMPRESSION: No acute fracture. EXAM: XR Right Wrist EXAM DATE/TIME: 03/20/2019 4:21 PM CLINICAL HISTORY: 63 years old, female; Pain; Wrist; Right; Patient HX: Foosh TECHNIQUE: Imaging protocol: XR Right wrist. Views: 3 or more views. COMPARISON: No relevant prior studies available. FINDINGS: There is mild widening of the scapholunate interval suspicious for scapholunate ligament sprain. There are degenerative changes within the radiocarpal, triscaphe and basal joints. No acute fracture or dislocation is identified. IMPRESSION: No acute fracture. HPI General Mode of arrival: wheelchair . Date/Time Provider Initiated Documentation: 03/20/19 15:54 . Limitations to Documentation: no limitations . Information obtained by: patient, RN notes reviewed and old records reviewed . HPI Narrative: Radha Masterson is a 63-year-old woman with a history of COPD, obesity with chronic wheelchair use who presented to the emergency department with right wrist and hand pain. Patient reports that yesterday her wheelchair was on a decline and she fell forward out of it, landing with her right arm outstretched. Patient reports that she has had pain in the right wrist and right hand since that fall. She denies hitting her head, denies any other injury from the fall. She denies any other pain, new weakness, numbness/tingling. Feels otherwise well in her usual state of health. Related Data Home Medications Medication Instructions Recorded Confirmed ascorbic acid (vitamin C) 1,000 mg PO DAILY 11/25/12 02/20/19 Aerochamber Mini #1 inhaler 12/21/13 02/20/19 Bipap 5 l IN DIRECTED 07/23/14 02/20/19 Oxygen 2 l INTRANASAL DIRECTED 12/24/14 02/20/19 aspirin 325 mg PO DAILY #0 tab-cap 06/22/15 02/20/19 clotrimazole 45 gm TOPICAL BID prn #45 gm 03/02/17 02/20/19 silver sulfadiazine 1 applic TOPICAL BID PRN #60 gm 12/28/17 02/20/19 furosemide 40 mg PO DAILY #7 tab 12/06/18 02/20/19 ipratropium-albuterol 3 ml IH QID #180 ml MDD 4 nebs 12/06/18 02/20/19 citalopram 20 mg tablet 20 mg PO DAILY #30 tab-cap 12/22/18 02/20/19 fluticasone propionate 50 1 spray NS DAILY #1 canister 12/22/18 02/20/19 mcg/actuation nasal spray,suspension gabapentin 100 mg capsule 200 mg PO BID #60 tab-cap 12/22/18 02/20/19 magnesium chloride 64 mg 64 mg PO DAILY #30 tab-cap 12/22/18 02/20/19 (magnesium chloride) tablet,delayed release potassium chloride 10 mEq 20 meq PO BID #180 tab-cap 12/22/18 02/20/19 capsule,extended release triamcinolone acetonide 0.1 % 1 applic TOPICAL BID PRN #30 gm 12/22/18 02/20/19 topical cream albuterol sulfate 90 mcg/actuation 1 - 2 puff INHALATION Q6H PRN #1 02/20/19 02/20/19 aerosol inhaler inhaler budesonide-formoterol HFA 160 2 puff INHALATION BID #1 inh 02/20/19 02/20/19 mcg-4.5 mcg/actuation aerosol inhaler clotrimazole 1 % topical cream 1 applic TOPICAL TID #30 gm 02/20/19 02/20/19 nystatin 100,000 unit/gram topical 1 applic TP BID PRN #30 gm 02/20/19 02/20/19 powder Previous Rx's Medication Instructions Recorded aspirin 325 mg PO DAILY #0 tab-cap 06/22/15 furosemide 40 mg PO DAILY #7 tab 12/06/18 ipratropium-albuterol 3 ml IH QID #180 ml MDD 4 nebs 12/06/18 citalopram 20 mg tablet 20 mg PO DAILY #30 tab-cap 12/22/18 fluticasone propionate 50 1 spray NS DAILY #1 canister 12/22/18 mcg/actuation nasal spray,suspension gabapentin 100 mg capsule 200 mg PO BID #60 tab-cap 12/22/18 magnesium chloride 64 mg 64 mg PO DAILY #30 tab-cap 12/22/18 (magnesium chloride) tablet,delayed release potassium chloride 10 mEq 20 meq PO BID #180 tab-cap 12/22/18 capsule,extended release triamcinolone acetonide 0.1 % 1 applic TOPICAL BID PRN #30 gm 12/22/18 topical cream albuterol sulfate 90 mcg/actuation 1 - 2 puff INHALATION Q6H PRN #1 02/20/19 aerosol inhaler inhaler budesonide-formoterol HFA 160 2 puff INHALATION BID #1 inh 02/20/19 mcg-4.5 mcg/actuation aerosol inhaler clotrimazole 1 % topical cream 1 applic TOPICAL TID #30 gm 02/20/19 nystatin 100,000 unit/gram topical 1 applic TP BID PRN #30 gm 02/20/19 powder Allergies Allergy/AdvReac Type Severity Reaction Status Date / Time hydrocodone Allergy Severe ITCHING Unverified 03/20/19 15:22 morphine Allergy Mild PRURITIS Unverified 03/20/19 15:22 oxycodone Allergy Mild ITCHING Unverified 03/20/19 15:22 General Stated Complaint: Orthopedic REUBEN: 4 [facility] Medical History Chronic headaches (Chronic) Chronic obstructive lung disease (Chronic) 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) Grief at loss of child (Acute) Hypercapnic respiratory failure (Resolved) Insomnia with sleep apnea (Chronic) Knee pain, bilateral (Chronic 07/23/14) Low back pain with sciatica (Chronic 05/03/14) Morbid obesity (Chronic 04/05/13) Obstructive sleep apnea syndrome (Chronic) Pulmonary embolism (Resolved) Recurrent UTI (Chronic) Right ventricular dysfunction (Chronic) Sensorineural hearing loss, bilateral (Chronic 08/29/13) Urinary incontinence (Chronic) Varicose veins of lower extremity (Chronic) Social History Smoking/Tobacco Use Status: Former Tobacco Use Alcohol Intake: never Drug use: Never Do you feel safe in your relationship?: Yes Exam Narrative Exam Narrative: Constitutional: well and [id number], pleasant, conversing normally, chronically uses scooter HENT: head atraumatic/normocephalic/normal inspection, mucous membranes moist Eyes: conjunctiva normal, sclera normal, pupils 3mm b/l Neck: no stridor, normal ROM, trachea midline Resp: normal work of breathing Cardio: normal rate, normal rhythm, radial pulses intact and symmetric Skin: warm, dry, normal color, no rash Neuro: alert, not altered, grossly non-focal, normal tone Ext: no edema, right wrist tender to palpation over ulnar aspect, right fourth and fifth metacarpals tender to palpation without deformity or overlying skin changes, full painless range of motion right elbow, right digits, brisk cap refill right digits, hand appears warm and well-perfused. Sensation intact. Psych: normal mood, normal affect, normal behavior Course Vital Signs Temperature 37.2 C 03/20/19 15:20 Pulse 85 03/20/19 15:20 Respiratory Rate 16 03/20/19 15:20 Blood Pressure 131/56 L 03/20/19 15:20 Pulse Oximetry 95 03/20/19 15:20 Temperature 37.2 C 03/20/19 15:20 Temperature Source Skin 03/20/19 15:20 Pulse 85 03/20/19 15:20 Respiratory Rate 16 03/20/19 15:20 Respiratory Effort Non-Labored 03/20/19 15:20 Blood Pressure 131/56 L 03/20/19 15:20 Blood Pressure Position Sitting 03/20/19 15:20 Pulse Oximetry 95 03/20/19 15:20 Oxygen Delivery Method Nasal Cannula 03/20/19 15:20 Oxygen Flow Rate 3 03/20/19 15:20 Pain Level 10 03/20/19 15:20
--- NOTE | 2019-03-20 16:20 | DI.RAD_ITS ---
SYMPTOM/DIAGNOSIS: TRAUMA, PAIN RIGHT HAND: No fracture or dislocation is seen. There is widening of the scapholunate distance which could indicate scapholunate ligament disruption. Degenerative changes are seen, greatest of the interphalangeal joints of the fingers. IMPRESSION: Widening of the scapholunate distance consistent with scapholunate ligament sprain. This could be acute or chronic. RIGHT WRIST: No fracture is identified. There is slight deformity of the distal radius which could be developmental or could be related to an old healed fracture. There is mild widening of the scapholunate distance consistent with scapholunate ligament disruption. There is no significant dorsal or ventral tilt of the lunate. IMPRESSION: Findings consistent with scapholunate ligament sprain which could be acute or chronic.
--- NOTE | 2019-03-20 17:08 | DI.VRAD_ITS ---
EXAM: XR Right Hand EXAM DATE/TIME: 03/20/2019 4:21 PM CLINICAL HISTORY: 63 years old, female; Pain; Hand; Right; Patient HX: Trauma, foosh TECHNIQUE: Imaging protocol: XR Right hand. Views: 3 or more views. COMPARISON: No relevant prior studies available. FINDINGS: There's mild widening of the scapholunate interval suspicious for scapholunate ligament sprain. There are degenerative arthritic changes within the radiocarpal, triscaphe and basal joints. There are degenerative changes throughout the metacarpal, phalangeal and interphalangeal joints of all digits. No acute fracture or dislocation is identified. IMPRESSION: No acute fracture. Dictated and Authenticated by: Levon España MD. Ordering:JENN Peña MD
--- NOTE | 2019-03-20 17:09 | DI.VRAD_ITS ---
EXAM: XR Right Wrist EXAM DATE/TIME: 03/20/2019 4:21 PM CLINICAL HISTORY: 63 years old, female; Pain; Wrist; Right; Patient HX: Foosh TECHNIQUE: Imaging protocol: XR Right wrist. Views: 3 or more views. COMPARISON: No relevant prior studies available. FINDINGS: There is mild widening of the scapholunate interval suspicious for scapholunate ligament sprain. There are degenerative changes within the radiocarpal, triscaphe and basal joints. No acute fracture or dislocation is identified. IMPRESSION: No acute fracture. Dictated and Authenticated by: Levon España MD. Ordering:JENN Peña MD
== END 2019-03-20 17:33 | disposition home or self-care (01) ==
PROVIDERS: Emergency Provider Student in an Organized Health Care Education/Training Program; PCP Family Medicine
DX: S69.91XA Unspecified injury of right wrist, hand and finger(s), initial encounter (principal); W05.0XXA Fall from non-moving wheelchair, initial encounter; J44.9 Chronic obstructive pulmonary disease, unspecified; Z87.891 Personal history of nicotine dependence
CPT/HCPCS: 29125; 99284; 73110; 73130; L3908

== ENCOUNTER 2019-04-18 15:28 | Outpatient (RCR) | payer MEDICARE, MEDICAID, SELFPAY | END 2019-05-14 23:59 | disposition home or self-care (01) | LOC: PUL 15:28 | PROVIDERS: PCP Family Medicine; Visit Provider Family Medicine | DX: J44.9 Chronic obstructive pulmonary disease, unspecified (principal); Z51.89 Encounter for other specified aftercare | CPT/HCPCS: G0424 ==

== ENCOUNTER 2019-04-25 12:33 | Outpatient (CLI) | payer MEDICARE, MEDICAID, SELFPAY | END 2019-04-25 12:53 | PROVIDERS: PCP Family Medicine; Visit Provider Family Medicine | DX: J44.9 Chronic obstructive pulmonary disease, unspecified (principal); Z99.81 Dependence on supplemental oxygen | CPT/HCPCS: 94762 ==

== ENCOUNTER 2019-04-27 07:00 | Outpatient (CLI) | payer MEDICARE, MEDICAID, SELFPAY | END 2019-04-27 07:20 | PROVIDERS: PCP Family Medicine; Visit Provider Family Medicine | DX: R60.9 Edema, unspecified (principal) | CPT/HCPCS: 36415; 84132 ==

== ENCOUNTER 2019-05-09 15:03 | Outpatient (CLI) | payer MEDICARE, MEDICAID, SELFPAY ==
--- NOTE | 2019-05-09 13:36 | DI.RAD_ITS ---
EXAM: XR WRIST RT LIMITED INDICATION: R wrist injury. COMPARISON: XR wrist RT complete from 03/20/2019 TECHNIQUE: 2D digital imaging was performed. FINDINGS: An AP and scaphoid projection was obtained. There is no evidence of a fracture or dislocation. An ul paul plus variance is identified.
== END 2019-05-09 15:23 ==
PROVIDERS: PCP Family Medicine; Referring Provider Family Medicine; Visit Provider Student in an Organized Health Care Education/Training Program
DX: M25.531 Pain in right wrist (principal); M25.831 Other specified joint disorders, right wrist; S63.511A Sprain of carpal joint of right wrist, initial encounter; W05.0XXA Fall from non-moving wheelchair, initial encounter
CPT/HCPCS: 99204; 99215; 73100; L3908

== ENCOUNTER 2019-05-11 14:00 | Outpatient (RCR) | payer MEDICARE, MEDICAID, SELFPAY | END 2019-05-14 23:59 | disposition home or self-care (01) | LOC: PRC 14:00 | PROVIDERS: PCP Family Medicine; Visit Provider Family Medicine | DX: J44.9 Chronic obstructive pulmonary disease, unspecified (principal); Z51.89 Encounter for other specified aftercare | CPT/HCPCS: G0424 ==

== ENCOUNTER 2019-05-25 14:43 | Inpatient (IN) | payer MEDICARE, MEDICAID, SELFPAY ==
[2019-05-25] VITALS (33 sets, daily range): BP systolic 108–158; BP diastolic 46–94; PULSE 66–111; RESP 2–28; TEMP 36.7–37.8; O2SAT 92–97
[2019-05-25] MEDS: Albuterol/Ipratropium 3 ML UPD VIAL (15:09)
--- NOTE | 2019-05-25 15:25 | W.ED.GENAD ---
Discharge Plan Discharge Details Chief Complaint: SOB Admit Date/Time: 05/25/19 18:29 Admit Provider: Vamsi Blackmon Attending Provider: Vamsi Blackmon Primary Care Provider: Alphonso Murphy ED Provider: Rosa Arellano Discharge Data Discharge Date/Time-TO BE ENTERED AT DEPARTURE: 05/25/19 19:50 Medical Decision Making Patient is a 64-year-old female presenting with chief complaint of shortness of breath. Patient has known COPD and is chronically on 2 L home O2 via nasal cannula. She reports over the past few months, she has had increase this to 3 L. States she awoke at 130 this morning fighting my CPAP. Since that time, she has been significantly short of breath, has begun coughing and has noted thick brown sputum. States she is feeling well yesterday. No known fevers. No recent travel. No congestion, sore throat, ear pain. She denies any GI upset but does state that she had some dry heaves associated with the forceful coughing she experienced this morning. On exam, patient appears dyspneic. She is tripoding and tachypneic. Her rate is stable. Patient's blood pressure is elevated at 128/78. She is 93% on 3 L nasal cannula. Afebrile. Patient is obese, sitting in electric wheelchair. She has diffuse wheezing noted on exam. Plan to give nebulizer and reevaluate. EKG was reviewed by Dr. Funes. Patient sinus tachycardia with a rate of 109. No acute ischemic changes noted. Patient evaluated by respiratory therapy. Patient does appear fatigued, tachypneic and working to breathe. Patient started on BiPAP and is tolerating this very well. Immediately appears much relieved and reports she is feeling improved. Chest x-rays reviewed by the radiologist. They note some mild diffuse changes in the central markings is more prominent on the right. No pneumothorax. Number cardiomegaly. Mild ectasia of the thoracic aorta abdominal vessels. Overall impression is findings suggestive of mild pulmonary edema and mild atelectasis in the right lung base. patient is white count 10.99. No significant electrolyte abnormality. Troponin is less than 0.05. BNP is 57. As patient is bringing up with thick brown sputum, is not fluid overloaded, is greatly benefiting from BiPAP, I am concerned for possible pneumonia despite a relatively normal chest x-ray. Plan to start the patient on ceftriaxone doxycycline. Will consult with the hospitalist regarding admission for COPD exacerbation and possible pneumonia. Consulted with the Dr. Monroe who agrees to admission for continued evaluation and treatment of the patient's COPD exacerbation and pneumonia. Patient is received her ceftriaxone, doxycycline. She is doing well on BiPAP. HPI General Date/Time Provider Initiated Documentation: 05/25/19 14:51. Related Data Home Medications Medication Instructions Recorded Confirmed ascorbic acid (vitamin C) 1,000 mg PO DAILY 11/25/12 05/25/19 Aerochamber Mini #1 inhaler 12/21/13 05/25/19 Bipap 5 l IN DIRECTED 07/23/14 04/27/19 Oxygen 2 l INTRANASAL DIRECTED 12/24/14 05/25/19 aspirin 325 mg PO DAILY #0 tab-cap 06/22/15 05/25/19 clotrimazole 45 gm TOPICAL BID prn #45 gm 03/02/17 04/27/19 silver sulfadiazine 1 applic TOPICAL BID PRN #60 gm 12/28/17 04/27/19 triamcinolone acetonide 0.1 % 1 applic TOPICAL BID PRN #30 gm 12/22/18 04/27/19 topical cream albuterol sulfate 90 mcg/actuation 1 - 2 puff INHALATION Q6H PRN #1 02/20/19 05/25/19 aerosol inhaler inhaler clotrimazole 1 % topical cream 1 applic TOPICAL TID #30 gm 02/20/19 04/27/19 nystatin 100,000 unit/gram topical 1 applic TP BID PRN #30 gm 02/20/19 05/25/19 powder citalopram 20 mg tablet 20 mg PO DAILY tab-cap 04/27/19 04/27/19 gabapentin 100 mg capsule 200 mg PO BID tab-cap 04/27/19 04/27/19 ketotifen fumarate 0.025 % (0.035 1 drp OP BID PRN #5 ml 04/27/19 05/25/19 %) eye drops magnesium chloride 64 mg 64 mg PO DAILY tab-cap 04/27/19 04/27/19 (magnesium chloride) tablet,delayed release potassium chloride 10 mEq 20 meq PO BID tab-cap 04/27/19 04/27/19 capsule,extended release budesonide-formoterol HFA 160 2 puff INHALATION BID #1 inh 05/24/19 05/25/19 mcg-4.5 mcg/actuation aerosol inhaler fluticasone propionate 50 1 spray NS DAILY #1 canister 05/24/19 05/25/19 mcg/actuation nasal spray,suspension ipratropium-albuterol 0.5 mg-3 3 ml IH QID #180 ml MDD 4 nebs 05/24/19 05/25/19 mg(2.5 mg base)/3 mL nebulization soln Previous Rx's Medication Instructions Recorded aspirin 325 mg PO DAILY #0 tab-cap 06/22/15 triamcinolone acetonide 0.1 % 1 applic TOPICAL BID PRN #30 gm 12/22/18 topical cream albuterol sulfate 90 mcg/actuation 1 - 2 puff INHALATION Q6H PRN #1 02/20/19 aerosol inhaler inhaler clotrimazole 1 % topical cream 1 applic TOPICAL TID #30 gm 02/20/19 nystatin 100,000 unit/gram topical 1 applic TP BID PRN #30 gm 02/20/19 powder ketotifen fumarate 0.025 % (0.035 1 drp OP BID PRN #5 ml 04/27/19 %) eye drops budesonide-formoterol HFA 160 2 puff INHALATION BID #1 inh 05/24/19 mcg-4.5 mcg/actuation aerosol inhaler fluticasone propionate 50 1 spray NS DAILY #1 canister 05/24/19 mcg/actuation nasal spray,suspension ipratropium-albuterol 0.5 mg-3 3 ml IH QID #180 ml MDD 4 nebs 05/24/19 mg(2.5 mg base)/3 mL nebulization soln Allergies Allergy/AdvReac Type Severity Reaction Status Date / Time hydrocodone Allergy Severe ITCHING Unverified 05/09/19 13:19 morphine Allergy Mild PRURITIS Unverified 05/09/19 13:19 oxycodone Allergy Mild ITCHING Unverified 05/09/19 13:19 General Stated Complaint: SOB REUBEN: 2 [facility] Medical History Chronic headaches (Chronic) Recent Neurology consult for possible papilledema. Chronic obstructive lung disease (Chronic) Quit smoking 2010. PFTs 09/2012 showed an FEV1 of 60% with improvement to 80% with bronchodilator, thought to be severe restrictive disease. 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) Grief at loss of child (Acute) Hypercapnic respiratory failure (Resolved) Insomnia with sleep apnea (Chronic) Knee pain, bilateral (Chronic 07/23/14) s/p bilat TKR (left infected with mult surg and decreased mobility) Low back pain with sciatica (Chronic 05/03/14) CT at [facility] [place] L34 spinal stenosis Morbid obesity (Chronic 04/05/13) Obstructive sleep apnea syndrome (Chronic) Pulmonary embolism (Resolved) Recurrent UTI (Chronic) Right ventricular dysfunction (Chronic) Sensorineural hearing loss, bilateral (Chronic 08/29/13) Urinary incontinence (Chronic) On Detrol Varicose veins of lower extremity (Chronic) Wrist pain, right (Acute) Surgical History Fasciotomy, Foot (~1996) LEFT History of Surgical Procedure (Chronic) a. Right and left toal knee replacements. b. Left knee has been repeatedly operated on with slava surgies, three replacements. Replacement of total knee joint Bilateral; left-became wayqjwoy-zctctdd-wtlwkjko surgeries Family History Mother Diabetes Personal history of malignant neoplasm LUNG Father Personal history of malignant neoplasm BRAIN Grandfather No problems noted. Grandfather No problems noted. Grandmother No problems noted. Grandmother No problems noted. Social History Smoking/Tobacco Use Status: Former Tobacco Use Alcohol Intake: never Drug use: Never Current gender identity: female Do you feel safe at home: Yes Do you feel safe in your relationship?: Yes Course Vital Signs Vital signs: Vital Signs Temperature 36.7 C 05/25/19 14:50 Pulse 66 05/25/19 14:50 Respiratory Rate 28 H 05/25/19 14:50 Blood Pressure 158/78 H 05/25/19 14:50 Pulse Oximetry 93 L 05/25/19 14:50 Temperature 36.7 C 05/25/19 14:50 Temperature Source Temporal Artery Scan 05/25/19 14:50 Pulse 66 05/25/19 14:50 Respiratory Rate 24 05/25/19 15:10 Respiratory Effort Labored 05/25/19 15:13 Respiratory Depth Shallow 05/25/19 15:10 Blood Pressure 158/78 H 05/25/19 14:50 Blood Pressure Position Sitting 05/25/19 14:50 Pulse Oximetry 93 L 05/25/19 14:50 Oxygen Delivery Method Nasal Cannula 05/25/19 14:50 Oxygen Flow Rate 3 05/25/19 14:50
[2019-05-25] MEDS: methylPREDNISolone SUCC 125 MG VIAL IM (15:57)
--- NOTE | 2019-05-25 16:10 | DI.RAD_ITS ---
EXAM: XR PORTABLE CHEST AP INDICATION: cough. COMPARISON: XR CHEST 2V PA LATERAL from 12/13/2018 TECHNIQUE: 2D digital imaging was performed. FINDINGS: The heart is enlarged. There are are probably small bilateral pleural effusions. Prominence of the pulmonary markings noted raising the possibility of mild CHF. IMPRESSION: Probable mild CHF. Follow-up PA and lateral chest recommended.
[2019-05-25 16:11] LABS: Abs Immature Grans 0.03 k/cumm (0.0-0.09); Absolute Basophil Count 0.03 k/cumm (0.0-0.2); Absolute Eosinophil Count 0.24 k/cumm (0.0-0.7); Absolute Lymphocyte Count 1.84 k/cumm (1.2-3.4); Absolute Monocyte Count 0.85 k/cumm (0.11-0.7); Basophils % 0.3; Eosinophils % 2.2; HCT 45.4 % (36.0-46.0); HGB 14.8 g/dL (12.0-15.5); Immature Grans % 0.3; Lymphocytes % 16.7; Mean Corp. HGB Concentration 32.6 g/dL (32.0-36.0); Mean Platelet Volume 10.6 fL (8.0-11.0); Monocytes % 7.7; Neutrophils % 72.8; Platelet Count 335 x1000/uL (130-400); RBC 5.28 m/cumm (4.00-5.20); RBC Distribution Width 14.2 % (11.7-14.6); White Blood Cell Count 10.99 k/cumm (4.4-10.8)
[2019-05-25] MEDS: Albuterol 2.5 MG/3 ML INH SOLN VIAL (16:12)
[2019-05-25 16:36] LABS: ALT 29 U/L (14-59); AST 21 U/L (15-37); Albumin 3.5 g/dL (3.4-5.0); Alkaline Phosphatase 99 U/L (46-116); Anion Gap 9.1 mmol/L (3-11); BUN 17 mg/dL (7-18); Bilirubin, Total 1.4 mg/dL (0.2-1.0); CO2 27.9 mmol/L (21.0-32.0); CREATININE 0.72 mg/dL (0.55-1.02); Calcium 8.9 mg/dL (8.5-10.1); Chloride 104 mmol/L (98-107); Glucose 101 mg/dL (70-100); Potassium 3.8 mmol/L (3.5-5.1); Sodium 141 mmol/L (136-145); Total Protein 8.2 g/dL (6.4-8.2)
[2019-05-25 16:45] LABS: Magnesium 1.9 mg/dL (1.8-2.4); NT-proBNP 57 pg/mL
--- NOTE | 2019-05-25 16:46 | DI.VRAD_ITS ---
INFORMATION: Exam: XR Chest, 1 View Exam date and time: 05/25/2019 4:34 PM Clinical history: 64 years old, female; Cough and shortness of breath; Additional info: Undergoing breathing treatment at time of exam TECHNIQUE: Imaging protocol: XR of the chest Views: 1 view. COMPARISON: CR XR CHEST 2V PA LATERAL 12/13/2018 2:28 PM FINDINGS: Lungs: Mild diffuse haziness of the central markings bilaterally this is more prominent at the right lung base where there more prominent reticular densities. Pleural space: Unremarkable. No pleural effusion. No pneumothorax. Heart/Mediastinum: Unremarkable. No cardiomegaly. Vasculature: Mild ectasia of the thoracic aorta and a dominant vessels. Bones/joints: Unremarkable. IMPRESSION: Findings suggesting mild pulmonary edema and mild atelectasis at the right lung base. Dictated and Authenticated by: Samy Gomes MD. Ordering:ERENDIRA Lee MD
[2019-05-25 16:49] LABS: Troponin I < 0.05 ng/mL (0.00-0.06)
[2019-05-25 16:55] LABS: BE (Venous) 4.1 mmol/L (-3-3); HCO3 (Venous) 30 mmol/L (22-28); O2 Sat (Venous) 60 % (70-80); TCO2 (Venous) 27 mmol/L (22-29); pCO2 (Venous) 51 mm/Hg (34-47); pH (Venous) 7.37 (7.32-7.43); pO2 (Venous) 32 mm/Hg (28-44)
[2019-05-25] MEDS: DOXYCYCLINE 100 MG in Normal Saline 100 ML IVPB (17:45)
[2019-05-25] MEDS: cefTRIAXone 1 GM/50 ML BAG IVPB (18:22)
[2019-05-25] MEDS: guaiFENesin 600 MG TABCR PO (21:12)
[2019-05-25] MEDS: Benzonatate 200 MG CAP PO (21:12)
--- NOTE | 2019-05-25 21:12 | HPE_ITS ---
Date of service: 05/25/19 Time of Service: 21:12 Assessment and Plan Assessment and plan (1) COPD exacerbation: Status: Acute Assessment and plan: Continue IV corticosteroids along with scheduled aerosolized bronchodilators and systemic antibiotics for treatment of community- acquired pneumonia. Supportive treatment with BiPAP. I advised the patient that she would be better monitored overnight in the intensive care unit tonight but she declined transfer to the ICU. However she indicated that if she gets worse she is willing to be intubated if noninvasive positive pressure ventilation is not supporting her. (2) Community acquired pneumonia: Status: Acute Assessment and plan: Continue IV Rocephin at increased dose of 2 g IV every 24 hours along with doxycycline 100 mg IV every 12 hours along with stress dose hydrocortisone and mucolytic's. Check sputum culture and Gram stain. O btain urine for strep antigen. Qualifiers: Laterality: unspecified laterality Qualified Code(s): J18.9 - Pneumonia, unspecified organism (3) Obstructive sleep apnea syndrome: Status: Chronic Assessment and plan: Continue treatment noninvasive positive pressure ventilation. History of Present Illness History of Present Illness Chief Complaint: dyspnea Narrative: 64-year-old female with known COPD and obstructive sleep apnea who wears CPAP. She awoke at 1:30 AM today fighting with her CPAP and ever since then she has been short of breath. She is also coughing up thick brown sputum today but denies any fever or rigors but has felt chilled. She denies any earache or sore throat. She chronically wears oxygen 2 L/min per nasal cannula and wears CPAP at night. Upon arrival to the emergency department she was in acute respiratory distress tachypnea, respiratory rate 28, working hard to breathe, oxygen saturation 93% on 3 L/min per nasal cannula, hypertensive with a blood pressure 158/78, but afebrile at 36.7. Patient was placed on BiPAP which he tolerated and gave her immediate relief of her dyspnea. Work-up included chest x-ray that showed mild diffuse haziness of the central markings bilaterally more prominent at the right lung base where there is more prominent reticular densities. No pleural effusion. No pneumothorax. No cardiomegaly. Slight vascular ectasia of the thoracic aorta. Impression of the radiologist is findings suggestive of mild pulmonary edema mild atelectasis right lung base. Laboratory studies include a CBC that showed a slightly elevated white count 10,990 no anemia. CMP was unremarkable. VBG showed a pH 7.37 with a PCO2 of 51 and a PO2 of 32. Troponin I and BNP were normal (<0.05 and 57 respectively). Treatment in the emergency room included IV Solu-Medrol 125 mg IV along with DuoNeb aerosol treatments and parenteral antibiotics including ceftriaxone 1 g and doxycycline 100 mg IV. Patient is now being admitted for COPD exacerbation and acute purulent bronchitis with possible i ncipient pneumonia. Review of Systems Constitutional Constitutional: Reports chills, Reports fatigue, Denies fever(s), Reports snoring and Reports stops breathing during sleep Cardiovascular Cardiovascular: Reports system reviewed and no additional complaints, except as docu, Denies chest pain, Reports dyspnea, Reports dyspnea on exertion and Reports orthopnea Respiratory Respiratory: Reports change in phlegm color, Reports chest congestion, Reports cough, Reports excessive phlegm production, Denies pain with cough, Reports dyspnea, Reports dyspnea on exertion, Reports snoring and Reports wheezing Gastrointestinal Gastrointestinal: Reports system reviewed and no additional complaints, except as docu Genitourinary Genitourinary: Reports system reviewed and no additional complaints, except as docu Musculoskeletal Musculoskeletal: Reports system reviewed and no additional complaints, except as docu Integumentary/Breasts Skin/Breast: Reports system reviewed and no additional complaints, except as docu Neurologic Neurologic: Reports system reviewed and no additional complaints, except as docu Endocrine Endocrine: Reports cold intolerance and Reports fatigue Hematologic/Lymphatic Hematologic/Lymphatic: Reports system reviewed and no additional complaints, except as docu Allergic/Immunologic Allergic/Immunologic: Reports as per HPI and Reports wheezing PFSH Medical History Chronic headaches (Chronic) Recent Neurology consult for possible papilledema. Chronic obstructive lung disease (Chronic) Quit smoking 2010. PFTs 09/2012 showed an FEV1 of 60% with improvement to 80% with bronchodilator, thought to be severe restrictive disease. 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) Grief at loss of child (Acute) Hypercapnic respiratory failure (Resolved) Insomnia with sleep apnea (Chronic) Knee pain, bilateral (Chronic 07/23/14) s/p bilat TKR (left infected with mult surg and decreased mobility) Low back pain with sciatica (Chronic 09/19/14) CT at [facility] [place] L34 spinal stenosis Morbid obesity (Chronic 04/05/13) Obstructive sleep apnea syndrome (Chronic) Pulmonary embolism (Resolved) Recurrent UTI (Chronic) Right ventricular dysfunction (Chronic) Sensorineural hearing loss, bilateral (Chronic 08/29/13) Urinary incontinence (Chronic) On Detrol Varicose veins of lower extremity (Chronic) Wrist pain, right (Acute) Surgical History Fasciotomy, Foot (~1996) LEFT History of Surgical Procedure (Chronic) a. Right and left toal knee replacements. b. Left knee has been repeatedly operated on with slava surgies, three replacements. Replacement of total knee joint Bilateral; left-became pljmgqge-[id number]-vqtuosem surgeries Family History Mother Diabetes Personal history of malignant neoplasm LUNG Father Personal history of malignant neoplasm BRAIN Grandfather No problems noted. Grandfather No problems noted. Grandmother No problems noted. Grandmother No problems noted. Social History Smoking/Tobacco Use Status: Former Tobacco Use Alcohol Intake: never Drug use: Never Current gender identity: female Do you feel safe at home: Yes Do you feel safe in your relationship?: Yes Meds Home Medications and Allergies Home Medications Medication Instructions Recorded Confirmed Type ascorbic acid (vitamin C) 1,000 mg PO DAILY 11/25/12 05/25/19 History Aerochamber Mini #1 inhaler 12/21/13 05/25/19 History Bipap 5 l IN DIRECTED 07/23/14 04/27/19 History Oxygen 2 l INTRANASAL DIRECTED 12/24/14 05/25/19 History aspirin 325 mg PO DAILY #0 tab-cap 06/22/15 05/25/19 Rx clotrimazole 45 gm TOPICAL BID prn #45 gm 03/02/17 04/27/19 History silver sulfadiazine 1 applic TOPICAL BID PRN #60 gm 12/28/17 04/27/19 History triamcinolone acetonide 0.1 % 1 applic TOPICAL BID PRN #30 gm 12/22/18 04/27/19 Rx topical cream albuterol sulfate 90 mcg/actuation 1 - 2 puff INHALATION Q6H PRN #1 02/20/19 05/25/19 Rx aerosol inhaler inhaler clotrimazole 1 % topical cream 1 applic TOPICAL TID #30 gm 02/20/19 04/27/19 Rx nystatin 100,000 unit/gram topical 1 applic TP BID PRN #30 gm 02/20/19 05/25/19 Rx powder citalopram 20 mg tablet 20 mg PO DAILY tab-cap 04/27/19 04/27/19 History gabapentin 100 mg capsule 200 mg PO BID tab-cap 04/27/19 04/27/19 History ketotifen fumarate 0.025 % (0.035 1 drp OP BID PRN #5 ml 04/27/19 05/25/19 Rx %) eye drops magnesium chloride 64 mg 64 mg PO DAILY tab-cap 04/27/19 04/27/19 History (magnesium chloride) tablet,delayed release potassium chloride 10 mEq 20 meq PO BID tab-cap 04/27/19 04/27/19 History capsule,extended release budesonide-formoterol HFA 160 2 puff INHALATION BID #1 inh 05/24/19 05/25/19 Rx mcg-4.5 mcg/actuation aerosol inhaler fluticasone propionate 50 1 spray NS DAILY #1 canister 05/24/19 05/25/19 Rx mcg/actuation nasal spray,suspension ipratropium-albuterol 0.5 mg-3 3 ml IH QID #180 ml MDD 4 nebs 05/24/19 05/25/19 Rx mg(2.5 mg base)/3 mL nebulization soln Allergies Allergy/AdvReac Type Severity Reaction Status Date / Time hydrocodone Allergy Severe ITCHING Unverified 05/09/19 13:19 morphine Allergy Mild PRURITIS Unverified 05/09/19 13:19 oxycodone Allergy Mild ITCHING Unverified 05/09/19 13:19 Exam Const General: cooperative, in distress mild and respiratory and ill appearing acutely Nutritional Appearance: obese morbidly obese Orientation: alert, awake and oriented x3 HENMT Head: normal to inspection, normocephalic, atraumatic and no acral cyanosis Ears: hearing grossly normal bilaterally Face and sinus: normal facial exam Eyes General: appearance normal, both eyes and all related structures Periorbital: periorbital findings normal Eyelids: eyelids normal Conjunctivae: conjunctivae normal Sclera: sclerae normal Cornea: corneas normal EOM: EOM intact bilaterally Neck Neck: full ROM, no lymphadenopathy, no meningeal signs, trachea midline and other (Obese neck difficult to discern JVD) Carotids: normal carotid upstroke Resp Effort & Inspection: not able to speak in complete sentences (able to speak in short few words), audible wheezes, cough Quality of cough: actively coughing, labored, no segmental paradox chest wall movement, tachypneic and uses accessory muscles Auscultation: wheezes expiratory wheezes, inspiratory wheezes and scattered wheezes Cardio Jugular venous pressure: no JVD Palpation: normal PMI Rate: tachycardic Rhythm: regular rhythm GI Inspection: obesity Palpation: soft, no hepatosplenomegaly and nontender Percussion: normal to percussion Auscultation: normal bowel sounds Neuro General: alert, awake, oriented x3, moves all extremities and no focal motor deficits Cognition: normal cognition Speech: speech normal Motor: muscle tone normal throughout and no movement abnormalities noted Sensory Exam: no sensory deficits noted Extrem General: full ROM, normal capillary refill and no calf tenderness Psych Appearance: grossly normal Mental Status: mental status grossly normal Speech and Movement: speech and movement normal Mood: congruent mood Affect: normal affect Attitude: cooperative Thought Process: normal Thought Content: normal Insight: insight good Judgment: judgment good Results Imaging Chest x-ray: image reviewed (diffuse interstitial pattern; no focal segmental or lobar consolidations, no pl. effusions) EKG: image reviewed (Sinus tachycardia at a rate of [address] T wave flattening across the precordial leads) Labs Result diagrams: 05/25/19 15:45 05/25/19 15:45 Labs: Laboratory Results - last 24 hr 05/25/19 05/25/19 05/25/19 15:45 15:45 15:45 WBC 10.99 H RBC 5.28 H Hgb 14.8 Hct 45.4 MCV 86.0 MCH 28.0 MCHC 32.6 RDW 14.2 Plt Count 335 MPV 10.6 Immature Gran % 0.3 Neutrophils % 72.8 Lymphocytes % 16.7 Monocytes % 7.7 Eosinophils % 2.2 Basophils % 0.3 Absolute Neutrophils 8.00 H Absolute Lymphocytes 1.84 Absolute Monocytes 0.85 H Absolute Eosinophils 0.24 Absolute Basophils 0.03 VBG pH VBG pCO2 VBG pO2 VBG HCO3 VBG Total CO2 VBG O2 Saturation VBG Base Excess Sodium 141 Potassium 3.8 Chloride 104 Carbon Dioxide 27.9 Anion Gap 9.1 BUN 17 Creatinine 0.72 Estimated GFR/1.73 m2 >= 60.00 Glucose 101 H Calcium 8.9 Magnesium 1.9 Total Bilirubin 1.4 H AST 21 ALT 29 Alkaline Phosphatase 99 Troponin I < 0.05 NT-Pro-B Natriuret Pep 57 Total Protein 8.2 Albumin 3.5 05/25/19 16:45 WBC RBC Hgb Hct MCV MCH MCHC RDW Plt Count MPV Immature Gran % Neutrophils % Lymphocytes % Monocytes % Eosinophils % Basophils % Absolute Neutrophils Absolute Lymphocytes Absolute Monocytes Absolute Eosinophils Absolute Basophils VBG pH 7.37 VBG pCO2 51 H VBG pO2 32 VBG HCO3 30 H VBG Total CO2 27 VBG O2 Saturation 60 L VBG Base Excess 4.1 H Sodium Potassium Chloride Carbon Dioxide Anion Gap BUN Creatinine Estimated GFR/1.73 m2 Glucose Calcium Magnesium Total Bilirubin AST ALT Alkaline Phosphatase Troponin I NT-Pro-B Natriuret Pep Total Protein Albumin Last Vital Signs Temp 37.8 C H 05/25/19 20:03 Pulse 103 H 05/25/19 20:03 Resp 28 H 05/25/19 20:03 BP 108/46 L 05/25/19 19:03 Pulse Ox 93 L 05/25/19 20:03
[2019-05-25] MEDS: Albuterol/Ipratropium 3 ML UPD VIAL UPD (21:13)
[2019-05-25] MEDS: cefTRIAXone 1,000 MG in Normal Saline 50 ML 100 MG IVPB (21:14)
[2019-05-25] MEDS: Normal Saline Flush 10 ML SYR IVP ×2 (21:15→22:38)
[2019-05-25] MEDS: Enoxaparin 40 MG/0.4 ML SYR SC (22:37)
[2019-05-25] MEDS: MAGNESIUM SULFATE 2 GM/50 ML BAG IVPB (22:38)
[2019-05-25] MEDS: methylPREDNISolone SUCC 125 MG VIAL 60 MG IVP (22:39)
[2019-05-26] VITALS (46 sets, daily range): BP systolic 92–153; BP diastolic 36–93; PULSE 77–122; RESP 1–37; TEMP 36–36.8; O2SAT 92–96
[2019-05-26] MEDS: LORazepam 2 MG/ML VIAL 1 MG IVP (01:19)
[2019-05-26] MEDS: Normal Saline Flush 10 ML SYR IVP ×4 (01:19→13:58)
[2019-05-26] MEDS: methylPREDNISolone SUCC 125 MG VIAL 60 MG IVP ×3 (06:19→22:12)
[2019-05-26] MEDS: DOXYCYCLINE 100 MG in Normal Saline 100 ML IVPB ×2 (06:19→17:52)
[2019-05-26 06:58] LABS: Abs Immature Grans 0.02 k/cumm (0.0-0.09); Absolute Lymphocyte Count 0.56 k/cumm (1.2-3.4); Absolute Monocyte Count 0.14 k/cumm (0.11-0.7); Absolute Neutrophil Count 8.35 k/cumm (1.2-6.7); HCT 39.7 % (36.0-46.0); HGB 13.2 g/dL (12.0-15.5); Immature Grans % 0.2; Lymphocytes % 6.2; Mean Corp. HGB Concentration 33.2 g/dL (32.0-36.0); Mean Corpuscular Hemoglobin 28.7 pg (27.0-33.0); Mean Corpuscular Volume 86.3 fL (80-95); Mean Platelet Volume 10.8 fL (8.0-11.0); Monocytes % 1.5; Neutrophils % 92.1; Platelet Count 292 x1000/uL (130-400); RBC Distribution Width 14.2 % (11.7-14.6); White Blood Cell Count 9.07 k/cumm (4.4-10.8)
[2019-05-26 07:19] LABS: Anion Gap 15.5 mmol/L (3-11); BUN 24 mg/dL (7-18); CO2 22.5 mmol/L (21.0-32.0); CREATININE 1.29 mg/dL (0.55-1.02); Calcium 8.4 mg/dL (8.5-10.1); Chloride 103 mmol/L (98-107); Estimated GFR 41.74 (mL/min/1.73m2); Glucose 236 mg/dL (70-100); Magnesium 2.2 mg/dL (1.8-2.4); Sodium 141 mmol/L (136-145); TSH (W/Ref FT4) 0.58 uIU/mL (0.36-3.74)
[2019-05-26 07:22] LABS: Potassium 2.9 mmol/L (3.5-5.1)
--- NOTE | 2019-05-26 09:26 | PHARADMIT ---
Addendum entered by Rajat Forde III 05/27/19 14:24: Pharmacy Note Subjective MD noted patient was not improving, broadened IV ABX coverage. Patient experienced coughing fits overnight requiring Ativan. Objective VS-OK K+4.7 SCr-0.72 WBC-18.57 H&H-ok Wgt- 194.3 kg BM today Assessment Vancomycin & Cefepime started, Doxycycline & Rpocephin dc'd Continue Updrafts and IV steroids Plan Awaiting sputum results Original Note: Admission Pharmacy Clinical Review COPD EXACERBATION, PNEUMONIA Code Status Full Code Current Weight Wgt-194.3 kg Renally Cleared and Narrow Therapeutic Index Meds CrCl~ 32 mL/min Meds-OK QTc Value / Action Taken QTc-477 (Celexa, Lasix BP Control, Fever BP-125/49 Tmx-37.1C Electrolytes reviewed Na-141 K+2.9 Mag-2.2 DVT Prophylaxis Lovenox Opiate Usage / Scheduled Bowel Regimen Ordered No Yes Plt/SCr for Heparin / Enoxaparin Plts-292 SCr-1.29 INR for Warfarin na H/H stable, WBC/Bands H&H- 13.2/39.7 WBC-9.07 Antibiotic appropriateness Doxycycline & Rocephin IV Cultures and Sensitivities SPUTUM-Pending Surgical ABX d/c within 24 hr na DM control / Insulin Dosing BG-236 Heart Failure (Check EF%) (TONE's, B-Block, Diuretics) none IV to PO Switch No Home Meds Reviewed Yes Home Meds Not Ordered Bupropion, Celexa, Lasix, Gabapentin, Slow-Mag, Silvadene, TAC Comments
[2019-05-26] MEDS: Aspirin 325 MG TAB PO (09:39)
[2019-05-26] MEDS: Benzonatate 200 MG CAP PO ×2 (09:39→20:20)
[2019-05-26] MEDS: guaiFENesin 600 MG TABCR PO ×2 (09:39→20:21)
[2019-05-26] MEDS: Ascorbic Acid 500 MG TAB 1000 MG PO (09:40)
[2019-05-26] MEDS: Potassium Chloride 20 MEQ TABCR 40 MEQ PO ×2 (09:42→17:52)
[2019-05-26] MEDS: POTASSIUM CHLORIDE 10 MEQ/100 ML BAG 100 MEQ IVPB ×3 (09:42→12:51)
[2019-05-26] MEDS: Budesonide 0.5 MG/2 ML UPD VIAL UPD ×2 (11:20→22:11)
[2019-05-26] MEDS: busPIRone 5 MG TAB 10 MG PO ×2 (11:34→20:21)
[2019-05-26] MEDS: Fluticasone NASAL SPRAY 16 GM BTL NS (11:35)
--- NOTE | 2019-05-26 11:46 | W.PM.PROGNOT ---
Date of Service Date of service: 05/26/19 Time of Service: 11:46 Assessment and Plan Assessment and plan (1) COPD exacerbation: Status: Acute Assessment and plan: History of Oxygen dependent COPD, with likely exacerbation based on underlying infection. Patient with an elevated temperature at time of admission, with complaints of change in cough with sputum production. CXR with possible atelectasis and pulmonary edema, but Mrs. Masterson also had a normal BNP, no evidence of ventricular dysfunction by ECHO in February, and potential Bronchitis vs. PNA clinically. - Continue antibiotic therapy with Ceftriaxone and Doxy, Day #2. - Currently on IV Steroids and nebs. Will also initiate inhaled Budesonide. - Responded well last night to benzo therapy. Discontinued and initiated Buspar instead, but appropriate to utilize low dose Lorazepam if needed for concurrent anxiety. - Continue to await sputum culture results. Strep antigen pending at this time. -Remains on therapy with BiPAP. (2) Community acquired pneumonia: Status: Acute Assessment and plan: Treatment as above. (3) Chronic obstructive pulmonary disease: Status: Chronic Assessment and plan: Continue antibiotics, steroids, and aggressive nebs as above. NIPPV on an as-needed basis. (4) DAVID (obstructive sleep apnea): Status: Chronic Assessment and plan: Noted. Continue utilization of BiPAP as above. (5) DVT prophylaxis: Status: Acute Assessment and plan: SC enoxaparin. Initiate on IV PPI for GI prophylaxis given need for concurrent steroid therapy. (6) Advance directive on file: Status: Acute Assessment and plan: Remains full code. Subjective Subjective Interval history since last seen: 63 year old woman with a history significant for COPD and DAVID, admitted on 05/25 from [facility] Emergency Department with a diagnosis of Pneumonia with concurrent COPD Exacerbation. Mrs. Masterson has a past medical history significant for Oxygen Dependent COPD, Morbid Obesity with DAVID on BiPAP therapy, with Concurrent PHTN. She had previously noted RV Systolic Dysfunction, but review of her ECHO from 02/2019 shows normal biventricular function. Her other history includes a Multinodular Goiter, Depression, Recurrent UTIs, and a history of PE in the past. She presented to the ED with complaints of dyspnea and reported change in sputum production. She was noted to be in acute respiratory distress upon arrival, and was treated with steroids, antibiotics, and BiPAP therapy. Initial work-up included a CXR showing potential mild pulmonary edema, although with labwork showing a normal Pro-BNP, and mild right lung base atelectasis. Labwork was noteworthy for mild leukocytosis, unremarkable CMP, and blood gas with normal PH and mild hypercapnia only. This morning Mrs. Masterson remains on BiPAP, reports perhaps mild improvement but continued dyspnea. No overnight events reported. She remains afebrile, but with a TMax last night of 37.8. Exam Narrative Exam Narrative: General: Patient is ill appearing but not toxic, AAOX3 Neck: Supple CV: Regular, borderline tachycardic, S1S2, No rubs, murmurs, or gallops. Pulmonary: Diminished with wheezing diffusely. Mildly tachypneic. Abdomen: + Bowel Sounds, soft, nontender, nondistended. Obese in contour Vascular: + b/l lower extremity edema Psych: Normal mood and affect. Objective Objective Clinical Data: Abnormal lab results 05/25/19 05/25/19 05/25/19 Range/Units 15:45 15:45 16:45 WBC 10.99 H (4.4-10.8) k/cumm RBC 5.28 H (4.00-5.20) m/cumm Absolute Neutrophils 8.00 H (1.2-6.7) k/cumm Absolute Lymphocytes (1.2-3.4) k/cumm Absolute Monocytes 0.85 H (0.11-0.7) k/cumm VBG pCO2 51 H (34-47) mm/Hg VBG HCO3 30 H (22-28) mmol/L VBG O2 Saturation 60 L (70-80) % VBG Base Excess 4.1 H (-3-3) mmol/L Potassium (3.5-5.1) mmol/L Anion Gap (3-11) mmol/L BUN (7-18) mg/dL Creatinine (0.55-1.02) mg/dL Glucose 101 H (70-100) mg/dL Calcium (8.5-10.1) mg/dL Total Bilirubin 1.4 H (0.2-1.0) mg/dL 05/26/19 05/26/19 Range/Units 06:30 06:30 WBC (4.4-10.8) k/cumm RBC (4.00-5.20) m/cumm Absolute Neutrophils 8.35 H (1.2-6.7) k/cumm Absolute Lymphocytes 0.56 L (1.2-3.4) k/cumm Absolute Monocytes (0.11-0.7) k/cumm VBG pCO2 (34-47) mm/Hg VBG HCO3 (22-28) mmol/L VBG O2 Saturation (70-80) % VBG Base Excess (-3-3) mmol/L Potassium 2.9 L* (3.5-5.1) mmol/L Anion Gap 15.5 H (3-11) mmol/L BUN 24 H (7-18) mg/dL Creatinine 1.29 H D (0.55-1.02) mg/dL Glucose 236 H D (70-100) mg/dL Calcium 8.4 L (8.5-10.1) mg/dL Total Bilirubin (0.2-1.0) mg/dL Vital Signs Temperature 36.5 C 05/26/19 04:05 Temperature Source Temporal Artery Scan 05/26/19 04:05 Pulse 88 05/26/19 11:37 Pulse Rhythm Regular 05/25/19 20:03 Pulse 90 05/26/19 10:34 Respiratory Rate 24 05/26/19 10:34 Respiratory Effort Accessory Muscle Use 05/26/19 04:05 Respiratory Depth Shallow 05/26/19 04:05 Respiratory Pattern Tachypnea 05/26/19 04:05 Blood Pressure 120/58 L 05/26/19 10:34 Blood Pressure Mean 73 05/26/19 10:34 Blood Pressure Position Supine 05/26/19 01:00 Pulse Oximetry 94 L 05/26/19 11:37 Oxygen Delivery Method Cpap 05/26/19 04:05 Oxygen Flow Rate 5 05/26/19 11:37 Fraction of Inspired Oxygen (FIO2) 30 05/25/19 17:30 Pain Level 0 05/25/19 20:03 Comment 05/25/19 20:03 Intake & Output 05/25/19 05/25/19 05/26/19 11:59 23:59 11:59 Intake Total 100 / 100 350 / 350 Output Total 400 / 400 Balance 100 / 100 -50 / -50 Weight 198.673 kg 194.3 kg Intake: IV 100 / 100 350 / 350 Output: Urine 400 / 400 Other: Urine Color Light Anay Urine Appearance Clear Clear Urine Odor Normal Voiding Methods Bedside Commode Laboratory Results WBC 9.07 k/cumm (4.4-10.8) 05/26/19 06:30 RBC 4.60 m/cumm (4.00-5.20) 05/26/19 06:30 Hgb 13.2 g/dL (12.0-15.5) 05/26/19 06:30 Hct 39.7 % (36.0-46.0) 05/26/19 06:30 MCV 86.3 fL (80-95) 05/26/19 06:30 MCH 28.7 pg (27.0-33.0) 05/26/19 06:30 MCHC 33.2 g/dL (32.0-36.0) 05/26/19 06:30 RDW 14.2 % (11.7-14.6) 05/26/19 06:30 Plt Count 292 x1000/uL (130-400) 05/26/19 06:30 MPV 10.8 fL (8.0-11.0) 05/26/19 06:30 Immature Gran % 0.2 05/26/19 06:30 Neutrophils % 92.1 05/26/19 06:30 Lymphocytes % 6.2 05/26/19 06:30 Monocytes % 1.5 05/26/19 06:30 Eosinophils % 0.0 05/26/19 06:30 Basophils % 0.0 05/26/19 06:30 Absolute Neutrophils 8.35 k/cumm (1.2-6.7) H 05/26/19 06:30 Absolute Lymphocytes 0.56 k/cumm (1.2-3.4) L 05/26/19 06:30 Absolute Monocytes 0.14 k/cumm (0.11-0.7) 05/26/19 06:30 Absolute Eosinophils 0.00 k/cumm (0.0-0.7) 05/26/19 06:30 Absolute Basophils 0.00 k/cumm (0.0-0.2) 05/26/19 06:30 VBG pH 7.37 (7.32-7.43) 05/25/19 16:45 VBG pCO2 51 mm/Hg (34-47) H 05/25/19 16:45 VBG pO2 32 mm/Hg (28-44) 05/25/19 16:45 VBG HCO3 30 mmol/L (22-28) H 05/25/19 16:45 VBG Total CO2 27 mmol/L (22-29) 05/25/19 16:45 VBG O2 Saturation 60 % (70-80) L 05/25/19 16:45 VBG Base Excess 4.1 mmol/L (-3-3) H 05/25/19 16:45 Sodium 141 mmol/L (136-145) 05/26/19 06:30 Potassium 2.9 mmol/L (3.5-5.1) L* 05/26/19 06:30 Chloride 103 mmol/L (98-107) 05/26/19 06:30 Carbon Dioxide 22.5 mmol/L (21.0-32.0) 05/26/19 06:30 Anion Gap 15.5 mmol/L (3-11) H 05/26/19 06:30 BUN 24 mg/dL (7-18) H 05/26/19 06:30 Creatinine 1.29 mg/dL (0.55-1.02) H D 05/26/19 06:30 Estimated GFR/1.73 m2 41.74 (mL/min/1.73m2) 05/26/19 06:30 Glucose 236 mg/dL (70-100) H D 05/26/19 06:30 Calcium 8.4 mg/dL (8.5-10.1) L 05/26/19 06:30 Magnesium 2.2 mg/dL (1.8-2.4) 05/26/19 06:30 Total Bilirubin 1.4 mg/dL (0.2-1.0) H 05/25/19 15:45 AST 21 U/L (15-37) 05/25/19 15:45 ALT 29 U/L (14-59) 05/25/19 15:45 Alkaline Phosphatase 99 U/L (46-116) 05/25/19 15:45 Troponin I < 0.05 ng/mL (0.00-0.06) 05/25/19 15:45 NT-Pro-B Natriuret Pep 57 pg/mL (-299) 05/25/19 15:45 Total Protein 8.2 g/dL (6.4-8.2) 05/25/19 15:45 Albumin 3.5 g/dL (3.4-5.0) 05/25/19 15:45 TSH 0.58 uIU/mL (0.36-3.74) 05/26/19 06:30
[2019-05-26] MEDS: Nystatin POWDER 15 GM JAR TP (11:50)
--- NOTE | 2019-05-26 11:53 | INITIAL_ITS ---
- If Service Date Differs Date of service: 05/26/19 Time of Service: 11:53 Care Management Initial Assess REASON FOR HOSPITALIZATION:: COPD Exacerbation PAST MEDICAL HISTORY/PAST SURGICAL HISTORY:: Medical History . Chronic headaches (Chronic). Recent Neurology consult for possible papilledema. Chronic obstructive lung disease (Chronic). Quit smoking 2010. PFTs 09/2012 showed an FEV1 of 60% with improvement to 80% with bronchodilator, thought to be severe restrictive disease. Depressive disorder (Chronic). Goiter, nontoxic, 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/14). Grief at loss of child (Acute). Hypercapnic respiratory failure (Resolved). Insomnia with sleep apnea (Chronic). Knee pain, bilateral (Chronic 07/23/14). s/p bilat TKR (left infected with mult surg and decreased mobility). Low back pain with sciatica (Chronic 05/03/14). CT at [facility] L34 spinal stenosis. Morbid obesity (Chronic 04/05/13). Obstructive sleep apnea syndrome (Chronic). Pulmonary embolism (Resolved). Recurrent UTI (Chronic). Right ventricular dysfunction (Chronic). Sensorineural hearing loss, bilateral (Chronic 08/29/13). Urinary incontinence (Chronic). On Detrol. Varicose veins of lower extremity (Chronic). Wrist pain, right (Acute). Surgical History . Fasciotomy, Foot (~1996). LEFT. History of Surgical Procedure (Chronic). a. Right and left toal knee replacements. b. Left knee has been repeatedly operated on with slava surgies, three replacements. Replacement of total knee joint. Bilateral; left-became oiuxonbn-gnfctiv-ldzctvvc surgeries PREVIOUS FUNCTIONAL STATUS/SOCIAL/FAMILY SUPPORTS:: Radha resides in an apartment in [facility] with her daughter. She has 2 other living children. 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 Radha has home O2 and a BiPAP through [employer] and has an electric wheelchair. She is independent with her ADLs and utilizes [facility] for transportation needs. CURRENT FUNCTIONAL STATUS:: Radha was lying in bed visiting with her son Fely when CM met with her. She was on Bipap at the time so conversation was kept to a minimum. She was pleasant and cooperative and answered questions readily. She remains in the ICU and is being treated for COPD and pneumonia. ADVANCE DIRECTIVES:: on file at [facility] Has patient been provided with information about the portal?: Yes Did the patient sign up for the portal?: No CODE STATUS:: Full Code INSURANCE COVERAGE / FINANCIAL ISSUES:: Medicare. Medicaid CURRENT HOME/COMMUNITY SERVICES/EQUIPMENT:: Radha has an electric w/c, home oxygen and Bipap through [employer], commode, hospital bed, walker, updraft machine and ramp. She does not currently have any community services. PRIMARY CARE PHYSICIAN:: Alphonso Murphy POTENTIAL DISCHARGE NEEDS:: followup with PCP and discharge plan of care PATIENT/FAMILY EDUCATION NEEDS:: Discharge plan, limitations, follow up plan, Ask Me Three. ANTICIPATED BARRIERS TO DISCHARGE:: none TRANSPORTATION:: via private vehicle with family when ready PLAN:: Radha remains ICU level of care. She is receiving IV AB and steroids, Bipap and nebulizer treatments. She will likely be discharged home with no new services. CM will continue to support patient, family and discharge planning considerations.
[2019-05-26] MEDS: Albuterol/Ipratropium 3 ML UPD VIAL UPD ×3 (12:22→23:30)
[2019-05-26] MEDS: Pantoprazole 40 MG VIAL IVP (12:50)
[2019-05-26] MEDS: Enoxaparin 40 MG/0.4 ML SYR SC (17:53)
[2019-05-26] MEDS: cefTRIAXone 2 GM/50 ML BAG IVPB (20:21)
[2019-05-27] VITALS (43 sets, daily range): BP systolic 106–184; BP diastolic 37–85; PULSE 70–104; RESP 2–30; TEMP 36.4–38.7; O2SAT 93–99
[2019-05-27] MEDS: Albuterol 2.5 MG/3 ML INH SOLN VIAL UPD ×2 (02:42→05:03)
[2019-05-27] MEDS: Normal Saline 1,000 ML 75 ML IV (02:52)
--- NOTE | 2019-05-27 02:57 | NUR.NOTE ---
at 2:42 pt's recurring coughing fit flared during her self-transfer to [facility]; her O2sat dropped to 84%, RR increased to 38, and her HR increased to 122. PRN albuterol given with good results; she recovered with HR to 90, RR to 17, and O2 sat to 93% within 15 mins. Nursing Note:
[2019-05-27] MEDS: LORazepam 2 MG/ML VIAL 1 MG IVP (04:45)
[2019-05-27] MEDS: methylPREDNISolone SUCC 125 MG VIAL 60 MG IVP ×3 (05:20→21:03)
[2019-05-27] MEDS: DOXYCYCLINE 100 MG in Normal Saline 100 ML IVPB (05:23)
[2019-05-27 05:26] LABS: Bilirubin Negative (Negative); Blood Negative (Negative); Clarity Clear (Clear); Glucose Negative (Negative); Ketones Negative (Negative); Leukocyte Esterase Negative (Negative); Nitrite Negative (Negative); Urobilinogen 0.2 EU/dL (Up TO 0.2)
--- NOTE | 2019-05-27 06:02 | NUR.NOTE ---
0445 Pt desatted to 83% whilte attempting to get herself off the commode to her bed, w HR inc to 111 and RR inc to 37. PRN albuterol 3ml updraft given with recovery to pt's normal range as per prior note. BP was taken found to be 184/83. She is afebrile. Pt refused to allow this RN to obtain any further blood pressure reading for the duration of the shift. contacted, and order for 1mg Ativan IVP was obtained and given at this time as an aid to her comfort. Pt went to sleep for the first time during this shift at 0515 am, with no s/s of resp distress noted at that time. Nursing Note:
[2019-05-27 06:49] LABS: Abs Immature Grans 0.07 k/cumm (0.0-0.09); Basophils % 0.1; HCT 38.6 % (36.0-46.0); HGB 12.9 g/dL (12.0-15.5); Immature Grans % 0.4; Lymphocytes % 6.6; Mean Corp. HGB Concentration 33.4 g/dL (32.0-36.0); Mean Corpuscular Hemoglobin 29.1 pg (27.0-33.0); Mean Corpuscular Volume 86.9 fL (80-95); Mean Platelet Volume 10.7 fL (8.0-11.0); Monocytes % 3.9; Platelet Count 287 x1000/uL (130-400); RBC 4.44 m/cumm (4.00-5.20); RBC Distribution Width 14.6 % (11.7-14.6); White Blood Cell Count 18.57 k/cumm (4.4-10.8)
[2019-05-27 06:53] LABS: Absolute Basophil Count 0.02 k/cumm (0.0-0.2); Absolute Lymphocyte Count 1.23 k/cumm (1.2-3.4); Absolute Monocyte Count 0.72 k/cumm (0.11-0.7); Absolute Neutrophil Count 16.53 k/cumm (1.2-6.7)
[2019-05-27 07:02] LABS: BUN 28 mg/dL (7-18); CREATININE 0.72 mg/dL (0.55-1.02); Calcium 8.3 mg/dL (8.5-10.1); Chloride 108 mmol/L (98-107); Glucose 154 mg/dL (70-100); Magnesium 2.1 mg/dL (1.8-2.4); Potassium 4.7 mmol/L (3.5-5.1); Sodium 142 mmol/L (136-145)
[2019-05-27] MEDS: Albuterol/Ipratropium 3 ML UPD VIAL UPD ×3 (07:45→18:37)
[2019-05-27] MEDS: busPIRone 5 MG TAB 10 MG PO (08:03)
[2019-05-27] MEDS: Benzonatate 200 MG CAP PO ×3 (08:03→20:01)
[2019-05-27] MEDS: Ascorbic Acid 500 MG TAB 1000 MG PO (08:03)
[2019-05-27] MEDS: Aspirin 325 MG TAB PO (08:03)
[2019-05-27] MEDS: guaiFENesin 600 MG TABCR PO ×2 (08:03→20:02)
[2019-05-27] MEDS: Nystatin POWDER 15 GM JAR TP (08:09)
[2019-05-27] MEDS: Fluticasone NASAL SPRAY 16 GM BTL NS (08:09)
--- NOTE | 2019-05-27 10:15 | PDOC.CMPRO ---
- If Service Date Differs Date of service: 05/27/19 Time of Service: 10:15 Care Management Progress Note S/O:Radha was lying in bed with Bipap on when CM came to see her. When asked if she was feeling any better she replied not really. She was having some difficulty breathing so conversation was difficult for her. Antibiotics were changed today as she remains febrile. A: Radha is a 64 year old woman admitted on 05/25/19 with COPD and pneumonia P:Radha remains ICU level of care. She is receiving IV AB and steroids, Bipap and nebulizer treatments. She will likely be discharged home with no new services. CM will continue to support patient, family and discharge planning considerations.
[2019-05-27] MEDS: CEFEPIME 2 GM in Normal Saline 100 ML IVPB ×2 (10:25→21:03)
[2019-05-27] MEDS: Budesonide 0.5 MG/2 ML UPD VIAL UPD ×2 (11:03→21:03)
[2019-05-27] MEDS: Pantoprazole 40 MG VIAL IVP (13:51)
--- NOTE | 2019-05-27 15:01 | W.PM.PROGNOT ---
Date of Service Date of service: 05/27/19 Time of Service: 15:01 Assessment and Plan Assessment and plan (1) COPD exacerbation: Status: Acute Assessment and plan: History of Oxygen dependent COPD, with likely exacerbation based on underlying infection. Patient with an elevated temperature at time of admission, with complaints of change in cough with sputum production. CXR with possible atelectasis and pulmonary edema, but Mrs. Masterson also had a normal BNP, no evidence of ventricular dysfunction by ECHO in February, and potential Bronchitis vs. PNA clinically. She also continued to be febrile despite appropriate coverage for CAP. - Continue but broaden antibiotic therapy from Ceftriaxone and Doxy to Vancomycin and Cefepime. - Currently on high dose IV Steroids and nebs, which will be continued. Will also initiate inhaled Budesonide. - Responded well last night to benzo therapy. Discontinued and initiated Buspar instead, which also appears to be helping, but appropriate to utilize low dose Lorazepam if needed for concurrent anxiety. - Continue to await sputum culture results. Strep antigen pending at this time as well. -Remains on continuous therapy with BiPAP. (2) Community acquired pneumonia: Status: Acute Assessment and plan: Treatment as above. (3) Chronic obstructive pulmonary disease: Status: Chronic Assessment and plan: Continue antibiotics, steroids, and aggressive nebs as above. NIPPV on an as-needed basis. (4) DAVID (obstructive sleep apnea): Status: Chronic Assessment and plan: Noted. Continue utilization of BiPAP as above. (5) DVT prophylaxis: Status: Acute Assessment and plan: SC enoxaparin. Initiated on IV PPI for GI prophylaxis given need for concurrent steroid therapy. (6) Advance directive on file: Status: Acute Assessment and plan: Remains full code. Subjective Subjective Interval history since last seen: 63 year old woman with a history significant for COPD and DAVID, admitted on 05/25 from [facility] Emergency Department with a diagnosis of Pneumonia with concurrent COPD Exacerbation. Mrs. Masterson has a past medical history significant for Oxygen dependent COPD, Morbid Obesity with DAVID on BiPAP therapy, and PHTN. She had previously noted RV Systolic Dysfunction, but review of her ECHO from 02/2019 shows normal biventricular function. Her other history includes a Multinodular Goiter, Depression, Recurrent UTIs, and a history of PE in the past. She presented to the ED with complaints of dyspnea and reported change in sputum production. She was noted to be in acute respiratory distress upon arrival, and was treated with steroids, antibiotics, and BiPAP therapy. Initial work-up included a CXR showing potential mild pulmonary edema, although with labwork showing a normal Pro-BNP. Labwork was noteworthy for mild leukocytosis, unremarkable CMP, and blood gas with normal PH and mild hypercapnia only. She was referred for admission for further evaluation and treatment. This morning Mrs. Masterson remains on BiPAP, reports continued dyspnea. No overnight events reported. She had a fever of 38.7 overnight. Exam Narrative Exam Narrative: General: Patient is ill appearing but not toxic, AAOX3. Remains on BiPAP. Neck: Supple CV: Regular, non tachycardic, S1S2, No rubs, murmurs, or gallops. Pulmonary: Diminished with wheezing diffusely. Mildly tachypneic. Unchanged from prior exam. Abdomen: + Bowel Sounds, soft, nontender, nondistended. Obese in contour Vascular: + b/l lower extremity edema Psych: Normal mood and affect. Objective Objective Clinical Data: Abnormal lab results 05/27/19 05/27/19 Range/Units 06:38 06:38 WBC 18.57 H D (4.4-10.8) k/cumm Absolute Neutrophils 16.53 H (1.2-6.7) k/cumm Absolute Monocytes 0.72 H (0.11-0.7) k/cumm Chloride 108 H (98-107) mmol/L BUN 28 H (7-18) mg/dL Glucose 154 H D (70-100) mg/dL Calcium 8.3 L (8.5-10.1) mg/dL Vital Signs Temperature 36.6 C 05/27/19 13:00 Temperature Source Temporal Artery Scan 05/27/19 13:00 Pulse 86 05/27/19 12:08 Pulse Rhythm Regular 05/25/19 20:03 Pulse 87 05/27/19 12:08 Respiratory Rate 21 05/27/19 12:08 Respiratory Effort Labored 05/27/19 13:00 Respiratory Depth Shallow 05/27/19 13:00 Respiratory Pattern Normal 05/27/19 13:00 Blood Pressure 120/63 05/27/19 12:08 Blood Pressure Mean 75 05/27/19 12:08 Blood Pressure Position Supine 05/27/19 13:00 Pulse Oximetry 97 05/27/19 11:29 Oxygen Delivery Method Bi-pap 05/27/19 13:00 Oxygen Flow Rate 5 05/27/19 11:29 Fraction of Inspired Oxygen (FIO2) 30 05/25/19 17:30 Pain Level 0 05/27/19 13:00 Comment 05/25/19 20:03 Intake & Output 05/26/19 05/27/19 05/27/19 23:59 11:59 23:59 Intake Total 300 / 650 690 / 940 250 / 940 Output Total 160 / 560 925 / 1005 80 / 1005 Balance 140 / 90 -235 / -65 170 / -65 Weight 194.3 kg Intake: IV 300 / 650 250 / 500 250 / 500 Oral 440 / 440 Output: Urine 160 / 560 325 / 405 80 / 405 Stool 600 / 600 Other: Urine Color Light Anay Light Anay Light Anay Urine Appearance Clear Clear Clear Urine Odor Normal Normal Normal Comment Mixed with loose stool. Wearing attends. Stool Occult Blood Negative Negative Stool Size Large Moderate Stool Characteristics Soft Liquid Formed Brown Brown Voiding Methods Bedside Commode Bedside Commode Bedside Commode Laboratory Results WBC 18.57 k/cumm (4.4-10.8) H D 05/27/19 06:38 RBC 4.44 m/cumm (4.00-5.20) 05/27/19 06:38 Hgb 12.9 g/dL (12.0-15.5) 05/27/19 06:38 Hct 38.6 % (36.0-46.0) 05/27/19 06:38 MCV 86.9 fL (80-95) 05/27/19 06:38 MCH 29.1 pg (27.0-33.0) 05/27/19 06:38 MCHC 33.4 g/dL (32.0-36.0) 05/27/19 06:38 RDW 14.6 % (11.7-14.6) 05/27/19 06:38 Plt Count 287 x1000/uL (130-400) 05/27/19 06:38 MPV 10.7 fL (8.0-11.0) 05/27/19 06:38 Immature Gran % 0.4 05/27/19 06:38 Neutrophils % 89.0 05/27/19 06:38 Lymphocytes % 6.6 05/27/19 06:38 Monocytes % 3.9 05/27/19 06:38 Eosinophils % 0.0 05/27/19 06:38 Basophils % 0.1 05/27/19 06:38 Absolute Neutrophils 16.53 k/cumm (1.2-6.7) H 05/27/19 06:38 Absolute Lymphocytes 1.23 k/cumm (1.2-3.4) 05/27/19 06:38 Absolute Monocytes 0.72 k/cumm (0.11-0.7) H 05/27/19 06:38 Absolute Eosinophils 0.00 k/cumm (0.0-0.7) 05/27/19 06:38 Absolute Basophils 0.02 k/cumm (0.0-0.2) 05/27/19 06:38 VBG pH 7.37 (7.32-7.43) 05/25/19 16:45 VBG pCO2 51 mm/Hg (34-47) H 05/25/19 16:45 VBG pO2 32 mm/Hg (28-44) 05/25/19 16:45 VBG HCO3 30 mmol/L (22-28) H 05/25/19 16:45 VBG Total CO2 27 mmol/L (22-29) 05/25/19 16:45 VBG O2 Saturation 60 % (70-80) L 05/25/19 16:45 VBG Base Excess 4.1 mmol/L (-3-3) H 05/25/19 16:45 Sodium 142 mmol/L (136-145) 05/27/19 06:38 Potassium 4.7 mmol/L (3.5-5.1) D 05/27/19 06:38 Chloride 108 mmol/L (98-107) H 05/27/19 06:38 Carbon Dioxide 25.0 mmol/L (21.0-32.0) 05/27/19 06:38 Anion Gap 9.0 mmol/L (3-11) 05/27/19 06:38 BUN 28 mg/dL (7-18) H 05/27/19 06:38 Creatinine 0.72 mg/dL (0.55-1.02) D 05/27/19 06:38 Estimated GFR/1.73 m2 >= 60.00 (mL/min/1.73m2) 05/27/19 06:38 Glucose 154 mg/dL (70-100) H D 05/27/19 06:38 Calcium 8.3 mg/dL (8.5-10.1) L 05/27/19 06:38 Magnesium 2.1 mg/dL (1.8-2.4) 05/27/19 06:38 Total Bilirubin 1.4 mg/dL (0.2-1.0) H 05/25/19 15:45 AST 21 U/L (15-37) 05/25/19 15:45 ALT 29 U/L (14-59) 05/25/19 15:45 Alkaline Phosphatase 99 U/L (46-116) 05/25/19 15:45 Troponin I < 0.05 ng/mL (0.00-0.06) 05/25/19 15:45 NT-Pro-B Natriuret Pep 57 pg/mL (-299) 05/25/19 15:45 Total Protein 8.2 g/dL (6.4-8.2) 05/25/19 15:45 Albumin 3.5 g/dL (3.4-5.0) 05/25/19 15:45 TSH 0.58 uIU/mL (0.36-3.74) 05/26/19 06:30 Urine Color Yellow (Yellow) 05/27/19 05:00 Urine Clarity Clear (Clear) 05/27/19 05:00 Urine pH 6.0 (5-8) 05/27/19 05:00 Ur Specific [place] 1.020 (1.005-1.025) 05/27/19 05:00 Urine Protein Negative mg/dL (Negative) 05/27/19 05:00 Urine Ketones Negative mg/dL (Negative) 05/27/19 05:00 Urine Blood Negative (Negative) 05/27/19 05:00 Urine Nitrite Negative (Negative) 05/27/19 05:00 Urine Bilirubin Negative (Negative) 05/27/19 05:00 Urine Urobilinogen 0.2 EU/dL (Up TO 0.2) 05/27/19 05:00 Ur Leukocyte Esterase Negative (Negative) 05/27/19 05:00 Urine Glucose Negative mg/dL (Negative) 05/27/19 05:00
[2019-05-27] MEDS: Enoxaparin 40 MG/0.4 ML SYR SC (17:13)
--- NOTE | 2019-05-27 19:38 | NUR.NOTE ---
Pt up to the commode without using call novak, this engineering technical writer asked if there was anything that she needed and asked if she would ring the call novak after using the commode. Pt replied, why, I have three steps to take from her to the bed. This engineering technical writer stated that she did not have nonskid socks on there was a risk she would fall and This engineering technical writer would be responsible. Pt abruptly stated that she did not want to wear the socks and frankly did not care, it is her life and she will take full responsibility.
[2019-05-27] MEDS: Normal Saline Flush 10 ML SYR IVP ×2 (20:02→21:04)
[2019-05-28] VITALS (41 sets, daily range): BP systolic 99–163; BP diastolic 45–92; PULSE 61–91; RESP 4–26; TEMP 36.6–36.8; O2SAT 94–99
[2019-05-28] MEDS: Albuterol/Ipratropium 3 ML UPD VIAL UPD ×4 (00:19→17:48)
[2019-05-28] MEDS: methylPREDNISolone SUCC 125 MG VIAL 60 MG IVP ×3 (05:22→21:50)
[2019-05-28] MEDS: Normal Saline Flush 10 ML SYR IVP ×6 (05:22→21:55)
[2019-05-28 07:08] LABS: Abs Immature Grans 0.05 k/cumm (0.0-0.09); Absolute Lymphocyte Count 1.59 k/cumm (1.2-3.4); Absolute Monocyte Count 0.27 k/cumm (0.11-0.7); Absolute Neutrophil Count 9.78 k/cumm (1.2-6.7); HCT 40.3 % (36.0-46.0); HGB 13.2 g/dL (12.0-15.5); Immature Grans % 0.4; Lymphocytes % 13.6; Mean Corp. HGB Concentration 32.8 g/dL (32.0-36.0); Mean Corpuscular Hemoglobin 28.7 pg (27.0-33.0); Mean Corpuscular Volume 87.6 fL (80-95); Mean Platelet Volume 11.3 fL (8.0-11.0); Monocytes % 2.3; Neutrophils % 83.7; Platelet Count 286 x1000/uL (130-400); RBC Distribution Width 14.8 % (11.7-14.6); White Blood Cell Count 11.69 k/cumm (4.4-10.8)
[2019-05-28 07:15] LABS: Anion Gap 7.5 mmol/L (3-11); BUN 24 mg/dL (7-18); CO2 27.5 mmol/L (21.0-32.0); CREATININE 0.76 mg/dL (0.55-1.02); Calcium 8.5 mg/dL (8.5-10.1); Chloride 106 mmol/L (98-107); Glucose 142 mg/dL (70-100); Magnesium 2.1 mg/dL (1.8-2.4); Potassium 4.3 mmol/L (3.5-5.1); Sodium 141 mmol/L (136-145)
[2019-05-28] MEDS: guaiFENesin 600 MG TABCR PO ×2 (08:34→20:09)
[2019-05-28] MEDS: Ascorbic Acid 500 MG TAB 1000 MG PO (08:34)
[2019-05-28] MEDS: Benzonatate 200 MG CAP PO ×3 (08:34→20:09)
[2019-05-28] MEDS: Aspirin 325 MG TAB PO (08:35)
--- NOTE | 2019-05-28 08:44 | NUR.NOTE ---
Pt quite rude to nursing staff at this time. She has currently refused all care, refused staff to take vital signs, refuse any nursing assessments. Did allow oral meds and IV meds, refused all others at this time.
[2019-05-28] MEDS: Budesonide 0.5 MG/2 ML UPD VIAL UPD ×2 (10:18→21:50)
[2019-05-28] MEDS: CEFEPIME 2 GM in Normal Saline 100 ML IVPB (12:15)
[2019-05-28 12:16] LABS: HCO3 25 mmol/L (22-28); pCO2 42 mmHg (34-47); pH 7.38 (7.35-7.45); pO2 85 mmHg (83-108); sO2 97 % (94-98); tCO2 22 mmol/L (22-29)
[2019-05-28 12:26] LABS: FIO2L 3 L; Site Right Radial
--- NOTE | 2019-05-28 12:26 | NUR.NOTE ---
Nursing Note: Report received from Vanda Dempsey RN in ICU and then patient transferred from room 221 to Med/Surg room 228 via her own electric wheelchair
[2019-05-28] MEDS: Pantoprazole 40 MG VIAL IVP (13:14)
[2019-05-28] MEDS: Fluticasone NASAL SPRAY 16 GM BTL NS (13:23)
--- NOTE | 2019-05-28 15:15 | PDOC.CMPRO ---
- If Service Date Differs Date of service: 05/28/19 Time of Service: 15:15 Care Management Progress Note S/O: Radha is sitting in a wheelchair watching television when CM meets with her. She reports she is feeling a bit better now that she is afebrile. She was moved from ICU to a room on Med Surg earlier today. She continues to have difficulty breathing, so engaging in conversation is challenging for her. CM will continue to follow. A: Radha is a 64 yo female admitted on 05/25/19 for COPD exacerbation and pneumonia. P: Radha will be discharged home when medically cleared by provider. Anticipate patient will resume home O2 and per RT will return home with new Trilogy machine coordinated through [employer]. CM will continue to support patient and discharge planning needs. Transportation will be provided by family via private vehicle when ready.
[2019-05-28 16:24] LABS: BE 0.3 mmol/L (-3-3); HCO3 26 mmol/L (22-28); pCO2 44 mmHg (34-47); pH 7.38 (7.35-7.45); pO2 75 mmHg (83-108); sO2 96 % (94-98); tCO2 23 mmol/L (22-29)
[2019-05-28 16:30] LABS: FIO2L 2 L; Site Right Radial
[2019-05-28] MEDS: Enoxaparin 40 MG/0.4 ML SYR SC (17:45)
--- NOTE | 2019-05-28 18:40 | PGE_ITS ---
Date of Service Date of service: 05/28/19 Time of Service: 18:40 Assessment and Plan Assessment and plan (1) COPD exacerbation: Status: Acute Assessment and plan: History of Oxygen dependent COPD, with likely exacerbation based on underlying infection. Patient with an elevated temperature at time of admission, with complaints of change in cough with sputum production. CXR with possible atelectasis and pulmonary edema, but Mrs. Masterson also had a normal BNP, no evidence of ventricular dysfunction by ECHO in February, and potential Bronchitis vs. PNA clinically. She also continued to be febrile despite appropriate coverage for CAP. - Continue broadened antibiotic therapy with Vancomycin and Cefepime, day#2. - Continue high dose IV Steroids and nebs, and consider weaning tomorrow pending patient's overall clinical status. Will also continue inhaled Budesonide. -Continue Buspar as needed for associated anxiety, which also appears to be helping, but appropriate to utilize low dose Lorazepam if needed as well. -Sputum culture not telling. Strep antigen pending at this time as well. -Remains on therapy with BiPAP, but now utilizing it less. (2) Community acquired pneumonia: Status: Acute Assessment and plan: Treatment as above. (3) Chronic obstructive pulmonary disease: Status: Chronic Assessment and plan: Continue antibiotics, steroids, and aggressive nebs as above. NIPPV on an as-needed basis. (4) DAVID (obstructive sleep apnea): Status: Chronic Assessment and plan: Noted. Continue utilization of BiPAP as above. (5) DVT prophylaxis: Status: Acute Assessment and plan: SC enoxaparin. Initiated on IV PPI for GI prophylaxis given need for concurrent steroid therapy. (6) Advance directive on file: Status: Acute Assessment and plan: Remains full code. Subjective Subjective Interval history since last seen: 63 year old woman with a history significant for COPD and DAVID, admitted on 05/25 from [facility] Emergency Department with a diagnosis of Pneumonia with concurrent COPD Exacerbation. Mrs. Masterson has a past medical history significant for Oxygen dependent COPD, Morbid Obesity with DAVID on BiPAP therapy, and PHTN. She had previously noted RV Systolic Dysfunction, but review of her ECHO from 02/2019 shows normal biventricular function. Her other history includes a Multinodular Goiter, Depression, Recurrent UTIs, and a history of PE in the past. She presented to the ED with complaints of dyspnea and reported change in sputum production. She was noted to be in acute respiratory distress upon arrival, and was treated with steroids, antibiotics, and BiPAP therapy. Initial work-up included a CXR showing potential mild pulmonary edema, although with labwork showing a normal Pro-BNP. Labwork was noteworthy for mild leukocytosis, unremarkable CMP, and blood gas with normal PH and mild hypercapnia only. She was referred for admission for further evaluation and treatment. This morning Mrs. Masterson appears improved and is off BiPAP. She has remained afebrile since changing antibiotic therapy, and verbally reports subjective improvement in her breathing and overall status. No overnight events reported. Exam Narrative Exam Narrative: General: Patient is ill appearing but not toxic, AAOX3. Remains on BiPAP. Neck: Supple CV: Regular, non tachycardic, S1S2, No rubs, murmurs, or gallops. Pulmonary: Diminished with improved air entry, now only minimal wheezing. Improved from prior exam. Abdomen: + Bowel Sounds, soft, nontender, nondistended. Obese in contour Vascular: + b/l lower extremity edema Psych: Normal mood and affect. Objective Objective Clinical Data: Abnormal lab results 05/28/19 05/28/19 05/28/19 Range/Units 06:25 06:25 16:20 WBC 11.69 H D (4.4-10.8) k/cumm RDW 14.8 H (11.7-14.6) % MPV 11.3 H (8.0-11.0) fL Absolute Neutrophils 9.78 H (1.2-6.7) k/cumm pO2 75 L (83-108) mmHg BUN 24 H (7-18) mg/dL Glucose 142 H (70-100) mg/dL Vital Signs Temperature 36.6 C 05/28/19 16:02 Temperature Source Tympanic 05/28/19 16:02 Pulse 82 05/28/19 17:48 Pulse Rhythm Regular 05/28/19 13:00 Pulse 82 05/28/19 10:30 Respiratory Rate 20 05/28/19 17:48 Respiratory Effort 05/28/19 13:00 Respiratory Depth Shallow 05/28/19 13:00 Respiratory Pattern Normal 05/28/19 13:00 Blood Pressure 122/64 05/28/19 16:02 Blood Pressure Mean 83 05/28/19 09:00 Blood Pressure Position Supine 05/28/19 02:21 Pulse Oximetry 94 L 05/28/19 16:02 Oxygen Delivery Method Nasal Cannula 05/28/19 17:48 Oxygen Flow Rate 2 05/28/19 17:48 Fraction of Inspired Oxygen (FIO2) 30 05/25/19 17:30 Pain Level 0 05/28/19 16:02 Comment 05/25/19 20:03 Intake & Output 05/27/19 05/28/19 05/28/19 23:59 11:59 23:59 Intake Total 2410 / 3100 370 / 990 620 / 990 Output Total 80 / 1005 850 / 850 Balance 2330 / 2095 -480 / 140 620 / 140 Weight 197.2 kg Intake: IV 1610 / 1860 10 / 390 380 / 390 Oral 800 / 1240 360 / 600 240 / 600 Output: Urine 80 / 405 850 / 850 Other: Urine Color Light Anay Straw Urine Appearance Clear Cloudy Sediment Urine Odor Normal Normal Comment Wearing attends. Voids on commode. Pt gets herself up OOB to the commode, does not let the staff help her with hygiene. Voiding Methods Bedside Commode Bedside Commode Laboratory Results WBC 11.69 k/cumm (4.4-10.8) H D 05/28/19 06:25 RBC 4.60 m/cumm (4.00-5.20) 05/28/19 06:25 Hgb 13.2 g/dL (12.0-15.5) 05/28/19 06:25 Hct 40.3 % (36.0-46.0) 05/28/19 06:25 MCV 87.6 fL (80-95) 05/28/19 06:25 MCH 28.7 pg (27.0-33.0) 05/28/19 06:25 MCHC 32.8 g/dL (32.0-36.0) 05/28/19 06:25 RDW 14.8 % (11.7-14.6) H 05/28/19 06:25 Plt Count 286 x1000/uL (130-400) 05/28/19 06:25 MPV 11.3 fL (8.0-11.0) H 05/28/19 06:25 Immature Gran % 0.4 05/28/19 06:25 Neutrophils % 83.7 05/28/19 06:25 Lymphocytes % 13.6 10/14/19 06:25 Monocytes % 2.3 05/28/19 06:25 Eosinophils % 0.0 05/28/19 06:25 Basophils % 0.0 05/28/19 06:25 Absolute Neutrophils 9.78 k/cumm (1.2-6.7) H 05/28/19 06:25 Absolute Lymphocytes 1.59 k/cumm (1.2-3.4) 05/28/19 06:25 Absolute Monocytes 0.27 k/cumm (0.11-0.7) 05/28/19 06:25 Absolute Eosinophils 0.00 k/cumm (0.0-0.7) 05/28/19 06:25 Absolute Basophils 0.00 k/cumm (0.0-0.2) 05/28/19 06:25 Sample Site Right radial 05/28/19 16:20 pCO2 44 mmHg (34-47) 05/28/19 16:20 pO2 75 mmHg (83-108) L 05/28/19 16:20 O2 Saturation 96 % (94-98) 05/28/19 16:20 ABG pH 7.38 (7.35-7.45) 05/28/19 16:20 ABG HCO3 26 mmol/L (22-28) 05/28/19 16:20 ABG Total CO2 23 mmol/L (22-29) 05/28/19 16:20 ABG Base Excess 0.3 mmol/L (-3-3) 05/28/19 16:20 VBG pH 7.37 (7.32-7.43) 05/25/19 16:45 VBG pCO2 51 mm/Hg (34-47) H 05/25/19 16:45 VBG pO2 32 mm/Hg (28-44) 05/25/19 16:45 VBG HCO3 30 mmol/L (22-28) H 05/25/19 16:45 VBG Total CO2 27 mmol/L (22-29) 05/25/19 16:45 VBG O2 Saturation 60 % (70-80) L 05/25/19 16:45 VBG Base Excess 4.1 mmol/L (-3-3) H 05/25/19 16:45 Oxygen Liter Flow 2 L 05/28/19 16:20 Sodium 141 mmol/L (136-145) 05/28/19 06:25 Potassium 4.3 mmol/L (3.5-5.1) 05/28/19 06:25 Chloride 106 mmol/L (98-107) 05/28/19 06:25 Carbon Dioxide 27.5 mmol/L (21.0-32.0) 05/28/19 06:25 Anion Gap 7.5 mmol/L (3-11) 05/28/19 06:25 BUN 24 mg/dL (7-18) H 05/28/19 06:25 Creatinine 0.76 mg/dL (0.55-1.02) 05/28/19 06:25 Estimated GFR/1.73 m2 >= 60.00 (mL/min/1.73m2) 05/28/19 06:25 Glucose 142 mg/dL (70-100) H 05/28/19 06:25 Calcium 8.5 mg/dL (8.5-10.1) 05/28/19 06:25 Magnesium 2.1 mg/dL (1.8-2.4) 05/28/19 06:25 Total Bilirubin 1.4 mg/dL (0.2-1.0) H 05/25/19 15:45 AST 21 U/L (15-37) 05/25/19 15:45 ALT 29 U/L (14-59) 05/25/19 15:45 Alkaline Phosphatase 99 U/L (46-116) 05/25/19 15:45 Troponin I < 0.05 ng/mL (0.00-0.06) 05/25/19 15:45 NT-Pro-B Natriuret Pep 57 pg/mL (-299) 05/25/19 15:45 Total Protein 8.2 g/dL (6.4-8.2) 05/25/19 15:45 Albumin 3.5 g/dL (3.4-5.0) 05/25/19 15:45 TSH 0.58 uIU/mL (0.36-3.74) 05/26/19 06:30 Urine Color Yellow (Yellow) 05/27/19 05:00 Urine Clarity Clear (Clear) 05/27/19 05:00 Urine pH 6.0 (5-8) 05/27/19 05:00 Ur Specific [place] 1.020 (1.005-1.025) 05/27/19 05:00 Urine Protein Negative mg/dL (Negative) 05/27/19 05:00 Urine Ketones Negative mg/dL (Negative) 05/27/19 05:00 Urine Blood Negative (Negative) 05/27/19 05:00 Urine Nitrite Negative (Negative) 05/27/19 05:00 Urine Bilirubin Negative (Negative) 05/27/19 05:00 Urine Urobilinogen 0.2 EU/dL (Up TO 0.2) 05/27/19 05:00 Ur Leukocyte Esterase Negative (Negative) 05/27/19 05:00 Urine Glucose Negative mg/dL (Negative) 05/27/19 05:00
[2019-05-28] MEDS: Clotrimazole 1% 15 GM TUBE TP (20:10)
[2019-05-29] VITALS (12 sets, daily range): BP systolic 127–157; BP diastolic 69–75; PULSE 68–77; RESP 1–25; TEMP 36.6; O2SAT 96–99
[2019-05-29] MEDS: CEFEPIME 2 GM in Normal Saline 100 ML IVPB ×2 (00:35→11:46)
[2019-05-29] MEDS: Albuterol/Ipratropium 3 ML UPD VIAL UPD ×4 (00:35→18:26)
[2019-05-29] MEDS: methylPREDNISolone SUCC 125 MG VIAL 60 MG IVP ×2 (06:28→14:04)
[2019-05-29 07:41] LABS: Abs Immature Grans 0.06 k/cumm (0.0-0.09); Absolute Lymphocyte Count 1.53 k/cumm (1.2-3.4); Absolute Monocyte Count 0.59 k/cumm (0.11-0.7); Absolute Neutrophil Count 8.34 k/cumm (1.2-6.7); HCT 44.3 % (36.0-46.0); HGB 14.6 g/dL (12.0-15.5); Immature Grans % 0.6; Lymphocytes % 14.5; Mean Corpuscular Hemoglobin 28.6 pg (27.0-33.0); Mean Corpuscular Volume 86.7 fL (80-95); Mean Platelet Volume 11.4 fL (8.0-11.0); Monocytes % 5.6; Neutrophils % 79.3; Platelet Count 322 x1000/uL (130-400); RBC 5.11 m/cumm (4.00-5.20); RBC Distribution Width 14.8 % (11.7-14.6); White Blood Cell Count 10.52 k/cumm (4.4-10.8)
[2019-05-29 07:56] LABS: Anion Gap 6.7 mmol/L (3-11); BUN 28 mg/dL (7-18); CO2 28.3 mmol/L (21.0-32.0); CREATININE 0.74 mg/dL (0.55-1.02); Calcium 8.9 mg/dL (8.5-10.1); Chloride 107 mmol/L (98-107); Glucose 131 mg/dL (70-100); Magnesium 2.4 mg/dL (1.8-2.4); Potassium 4.4 mmol/L (3.5-5.1); Sodium 142 mmol/L (136-145)
[2019-05-29] MEDS: Fluticasone NASAL SPRAY 16 GM BTL NS (08:47)
[2019-05-29] MEDS: Benzonatate 200 MG CAP PO ×3 (08:47→20:40)
[2019-05-29] MEDS: Clotrimazole 1% 15 GM TUBE TP ×2 (08:47→20:42)
[2019-05-29] MEDS: Ascorbic Acid 500 MG TAB 1000 MG PO (08:47)
[2019-05-29] MEDS: guaiFENesin 600 MG TABCR PO ×2 (08:47→20:40)
[2019-05-29] MEDS: Aspirin 325 MG TAB PO (08:47)
[2019-05-29] MEDS: Budesonide 0.5 MG/2 ML UPD VIAL UPD ×2 (10:11→22:12)
[2019-05-29] MEDS: Pantoprazole 40 MG VIAL IVP (11:45)
[2019-05-29] MEDS: Normal Saline Flush 10 ML SYR IVP ×3 (11:46→22:12)
--- NOTE | 2019-05-29 12:32 | NUR.NOTE ---
IV in left FA infiltrated. Removed IV, pt denies pain. elevated arm notified Charge Nurse. Nursing Note:
--- NOTE | 2019-05-29 17:00 | CMPROGNOTE_ITS ---
- If Service Date Differs Date of service: 05/29/19 Time of Service: 17:00 Care Management Progress Note S/O: Radha is sitting in a wheelchair when CM meets with her. She is breathing a bit better today. She remains afebrile since changing antibiotic therapy. CM will continue to follow. A: Radha is a 64 yo female admitted on 05/25/19 for COPD exacerbation pneumonia. P: Radha will be discharged home when medically cleared by provider. Anticipate patient will resume home O2 and BiPap machine. CM will continue to support patient and discharge planning needs. Transportation will be provided by [facility].
[2019-05-29 17:05] LABS: Streptococcus Pneumoniae Ag, U Negative (Negative)
[2019-05-29] MEDS: Enoxaparin 40 MG/0.4 ML SYR SC (17:15)
[2019-05-29] MEDS: Acetaminophen 325 MG TAB PO (17:18)
--- NOTE | 2019-05-29 19:50 | PGE_ITS ---
Date of Service Date of service: 05/29/19 Time of Service: 19:51 Assessment and Plan Assessment and plan (1) COPD exacerbation: Status: Acute Assessment and plan: History of Oxygen dependent COPD, with likely exacerbation based on underlying infection. Patient with an elevated temperature at time of admission, with complaints of change in cough with sputum production. CXR with possible atelectasis and pulmonary edema, but Mrs. Masterson also had a normal BNP, no evidence of ventricular dysfunction by ECHO in February, and potential Bronchitis vs. PNA clinically. She also continued to be febrile despite appropriate coverage for CAP. -Continue broadened antibiotic therapy with Vancomycin and Cefepime, day#3. -Continue but wean IV Steroids, continue nebs. -Continue Buspar as needed for associated anxiety, which also appears to be helping, but appropriate to utilize low dose Lorazepam if needed as well. -Sputum culture not telling. Strep antigen pending at this time as well. -Remains on therapy with BiPAP, but now utilizing it less. (2) Community acquired pneumonia: Status: Acute Assessment and plan: Treatment as above. (3) Chronic obstructive pulmonary disease: Status: Chronic Assessment and plan: Continue antibiotics, steroids, and aggressive nebs as above. NIPPV on an as-needed basis. (4) DAVID (obstructive sleep apnea): Status: Chronic Assessment and plan: Noted. Continue utilization of BiPAP as above. (5) DVT prophylaxis: Status: Acute Assessment and plan: SC enoxaparin. Initiated on IV PPI for GI prophylaxis given need for concurrent steroid therapy. (6) Advance directive on file: Status: Acute Assessment and plan: Remains full code. Subjective Subjective Interval history since last seen: 63 year old woman with a history significant for COPD and DAVID, admitted on 05/25 from [facility] Emergency Department with a diagnosis of Pneumonia with concurrent COPD Exacerbation. Mrs. Masterson has a past medical history significant for Oxygen dependent COPD, Morbid Obesity with DAVID on BiPAP therapy, and PHTN. She had previously noted RV Systolic Dysfunction, but review of her ECHO from 02/2019 shows normal biventricu lar function. Her other history includes a Multinodular Goiter, Depression, Recurrent UTIs, and a history of PE in the past. She presented to the ED with complaints of dyspnea and reported change in sputum production. She was noted to be in acute respiratory distress upon arrival, and was treated with steroids, antibiotics, and BiPAP therapy. Initial work-up included a CXR showing potential mild pulmonary edema, although with labwork showing a normal Pro-BNP. Labwork was noteworthy for mild leukocytosis, unremarkable CMP, and blood gas with normal PH and mild hypercapnia only. She was referred for admission for further evaluation and treatment. This morning Mrs. Masterson reports continued improvement in her breathing. She has remained afebrile since changing antibiotic therapy. No overnight events reported. Exam Narrative Exam Narrative: General: appears comfortable, AAOX3, NAD Neck: Supple CV: Regular, non tachycardic, S1S2, No rubs, murmurs, or gallops. Pulmonary: Diminished with improved air entry, now only minimal wheezing. Improved from prior exam. Abdomen: + Bowel Sounds, soft, nontender, nondistended. Obese in contour Vascular: + b/l lower extremity edema Psych: Normal mood and affect. Objective Objective Clinical Data: Abnormal lab results 05/29/19 05/29/19 Range/Units 06:50 06:50 RDW 14.8 H (11.7-14.6) % MPV 11.4 H (8.0-11.0) fL Absolute Neutrophils 8.34 H (1.2-6.7) k/cumm BUN 28 H (7-18) mg/dL Glucose 131 H (70-100) mg/dL Vital Signs Temperature 36.6 C 05/29/19 11:49 Temperature Source Temporal Artery Scan 05/29/19 11:49 Pulse 77 05/29/19 14:23 Pulse Rhythm Regular 05/29/19 15:33 Pulse 82 05/28/19 10:30 Respiratory Rate 22 05/29/19 12:00 Respiratory Effort 05/29/19 15:33 Respiratory Depth Normal 05/29/19 15:33 Respiratory Pattern Normal 05/29/19 15:33 Blood Pressure 157/75 H 05/29/19 11:49 Blood Pressure Mean 83 05/28/19 09:00 Blood Pressure Position Supine 05/28/19 02:21 Pulse Oximetry 97 05/29/19 12:00 Oxygen Delivery Method Bi-pap 05/29/19 11:57 Oxygen Flow Rate 3.5 05/29/19 11:59 Fraction of Inspired Oxygen (FIO2) 30 05/25/19 17:30 Pain Level 4 05/29/19 17:18 Comment 05/29/19 03:25 Intake & Output 05/28/19 05/29/19 05/29/19 23:59 11:59 23:59 Intake Total 1110 / 1480 470 / 570 100 / 570 Balance 1110 / 630 470 / 570 100 / 570 Intake: IV 630 / 640 350 / 450 100 / 450 Oral 480 / 840 120 / 120 Other: Comment voids independantly Voiding Methods Diaper Diaper Incontinent Incontinent Laboratory Results WBC 10.52 k/cumm (4.4-10.8) 05/29/19 06:50 RBC 5.11 m/cumm (4.00-5.20) 05/29/19 06:50 Hgb 14.6 g/dL (12.0-15.5) 05/29/19 06:50 Hct 44.3 % (36.0-46.0) 05/29/19 06:50 MCV 86.7 fL (80-95) 05/29/19 06:50 MCH 28.6 pg (27.0-33.0) 05/29/19 06:50 MCHC 33.0 g/dL (32.0-36.0) 05/29/19 06:50 RDW 14.8 % (11.7-14.6) H 05/29/19 06:50 Plt Count 322 x1000/uL (130-400) 05/29/19 06:50 MPV 11.4 fL (8.0-11.0) H 05/29/19 06:50 Immature Gran % 0.6 05/29/19 06:50 Neutrophils % 79.3 05/29/19 06:50 Lymphocytes % 14.5 05/29/19 06:50 Monocytes % 5.6 05/29/19 06:50 Eosinophils % 0.0 05/29/19 06:50 Basophils % 0.0 05/29/19 06:50 Absolute Neutrophils 8.34 k/cumm (1.2-6.7) H 05/29/19 06:50 Absolute Lymphocytes 1.53 k/cumm (1.2-3.4) 05/29/19 06:50 Absolute Monocytes 0.59 k/cumm (0.11-0.7) 05/29/19 06:50 Absolute Eosinophils 0.00 k/cumm (0.0-0.7) 05/29/19 06:50 Absolute Basophils 0.00 k/cumm (0.0-0.2) 05/29/19 06:50 Sample Site Right radial 05/28/19 16:20 pCO2 44 mmHg (34-47) 05/28/19 16:20 pO2 75 mmHg (83-108) L 05/28/19 16:20 O2 Saturation 96 % (94-98) 05/28/19 16:20 ABG pH 7.38 (7.35-7.45) 05/28/19 16:20 ABG HCO3 26 mmol/L (22-28) 05/28/19 16:20 ABG Total CO2 23 mmol/L (22-29) 05/28/19 16:20 ABG Base Excess 0.3 mmol/L (-3-3) 05/28/19 16:20 VBG pH 7.37 (7.32-7.43) 05/25/19 16:45 VBG pCO2 51 mm/Hg (34-47) H 05/25/19 16:45 VBG pO2 32 mm/Hg (28-44) 05/25/19 16:45 VBG HCO3 30 mmol/L (22-28) H 05/25/19 16:45 VBG Total CO2 27 mmol/L (22-29) 05/25/19 16:45 VBG O2 Saturation 60 % (70-80) L 05/25/19 16:45 VBG Base Excess 4.1 mmol/L (-3-3) H 05/25/19 16:45 Oxygen Liter Flow 2 L 05/28/19 16:20 Sodium 142 mmol/L (136-145) 05/29/19 06:50 Potassium 4.4 mmol/L (3.5-5.1) 05/29/19 06:50 Chloride 107 mmol/L (98-107) 05/29/19 06:50 Carbon Dioxide 28.3 mmol/L (21.0-32.0) 05/29/19 06:50 Anion Gap 6.7 mmol/L (3-11) 05/29/19 06:50 BUN 28 mg/dL (7-18) H 05/29/19 06:50 Creatinine 0.74 mg/dL (0.55-1.02) 05/29/19 06:50 Estimated GFR/1.73 m2 >= 60.00 (mL/min/1.73m2) 05/29/19 06:50 Glucose 131 mg/dL (70-100) H 05/29/19 06:50 Calcium 8.9 mg/dL (8.5-10.1) 05/29/19 06:50 Magnesium 2.4 mg/dL (1.8-2.4) 05/29/19 06:50 Total Bilirubin 1.4 mg/dL (0.2-1.0) H 05/25/19 15:45 AST 21 U/L (15-37) 05/25/19 15:45 ALT 29 U/L (14-59) 05/25/19 15:45 Alkaline Phosphatase 99 U/L (46-116) 05/25/19 15:45 Troponin I < 0.05 ng/mL (0.00-0.06) 05/25/19 15:45 NT-Pro-B Natriuret Pep 57 pg/mL (-299) 05/25/19 15:45 Total Protein 8.2 g/dL (6.4-8.2) 05/25/19 15:45 Albumin 3.5 g/dL (3.4-5.0) 05/25/19 15:45 TSH 0.58 uIU/mL (0.36-3.74) 05/26/19 06:30 Urine Color Yellow (Yellow) 05/27/19 05:00 Urine Clarity Clear (Clear) 05/27/19 05:00 Urine pH 6.0 (5-8) 05/27/19 05:00 Ur Specific [place] 1.020 (1.005-1.025) 05/27/19 05:00 Urine Protein Negative mg/dL (Negative) 05/27/19 05:00 Urine Ketones Negative mg/dL (Negative) 05/27/19 05:00 Urine Blood Negative (Negative) 05/27/19 05:00 Urine Nitrite Negative (Negative) 05/27/19 05:00 Urine Bilirubin Negative (Negative) 05/27/19 05:00 Urine Urobilinogen 0.2 EU/dL (Up TO 0.2) 05/27/19 05:00 Ur Leukocyte Esterase Negative (Negative) 05/27/19 05:00 Urine Glucose Negative mg/dL (Negative) 05/27/19 05:00 Vancomycin Trough 15.0 ug/mL (10.0-20.0) 05/29/19 13:10
[2019-05-29] MEDS: methylPREDNISolone SUCC 40 MG VIAL IVP (22:12)
[2019-05-30] VITALS (14 sets, daily range): BP systolic 117–166; BP diastolic 56–83; PULSE 61–78; RESP 4–25; TEMP 36.3–36.7; O2SAT 95–99
[2019-05-30] MEDS: Albuterol/Ipratropium 3 ML UPD VIAL UPD ×5 (00:11→23:45)
[2019-05-30] MEDS: CEFEPIME 2 GM in Normal Saline 100 ML IVPB ×2 (00:56→14:00)
[2019-05-30] MEDS: Normal Saline Flush 10 ML SYR IVP ×5 (06:41→23:30)
[2019-05-30] MEDS: guaiFENesin 600 MG TABCR PO ×2 (08:00→20:22)
[2019-05-30] MEDS: Benzonatate 200 MG CAP PO ×3 (08:00→20:22)
[2019-05-30] MEDS: Ascorbic Acid 500 MG TAB 1000 MG PO (08:00)
[2019-05-30] MEDS: Aspirin 325 MG TAB PO (08:00)
[2019-05-30] MEDS: Fluticasone NASAL SPRAY 16 GM BTL NS (08:01)
[2019-05-30] MEDS: Clotrimazole 1% 15 GM TUBE TP ×3 (08:02→20:21)
[2019-05-30] MEDS: Budesonide/Formoterol 160/4.5 6 GM 60 PUFF INH IH (08:35)
[2019-05-30] MEDS: Budesonide 0.5 MG/2 ML UPD VIAL UPD ×2 (10:04→21:53)
[2019-05-30 10:44] LABS: Abs Immature Grans 0.08 k/cumm (0.0-0.09); Absolute Basophil Count 0.01 k/cumm (0.0-0.2); Absolute Eosinophil Count 0.01 k/cumm (0.0-0.7); Absolute Lymphocyte Count 1.55 k/cumm (1.2-3.4); Absolute Monocyte Count 1.06 k/cumm (0.11-0.7); Absolute Neutrophil Count 7.89 k/cumm (1.2-6.7); Basophils % 0.1; Eosinophils % 0.1; HCT 40.5 % (36.0-46.0); HGB 13.6 g/dL (12.0-15.5); Immature Grans % 0.8; Lymphocytes % 14.6; Mean Corp. HGB Concentration 33.6 g/dL (32.0-36.0); Mean Corpuscular Hemoglobin 28.8 pg (27.0-33.0); Mean Corpuscular Volume 85.8 fL (80-95); Mean Platelet Volume 11.1 fL (8.0-11.0); Neutrophils % 74.4; Platelet Count 284 x1000/uL (130-400); RBC 4.72 m/cumm (4.00-5.20); RBC Distribution Width 14.3 % (11.7-14.6)
[2019-05-30] MEDS: methylPREDNISolone SUCC 40 MG VIAL IVP ×2 (10:45→21:53)
[2019-05-30 10:53] LABS: Anion Gap 5.6 mmol/L (3-11); BUN 24 mg/dL (7-18); CO2 29.4 mmol/L (21.0-32.0); CREATININE 0.65 mg/dL (0.55-1.02); Calcium 8.3 mg/dL (8.5-10.1); Chloride 105 mmol/L (98-107); Glucose 114 mg/dL (70-100); Magnesium 2.2 mg/dL (1.8-2.4); Sodium 140 mmol/L (136-145)
[2019-05-30 11:38] LABS: Procalcitonin < 0.1 ng/mL
[2019-05-30 13:45] LABS: Vancomycin, Trough 19.7 ug/mL (10.0-20.0)
--- NOTE | 2019-05-30 15:35 | CHAPLAIN ---
I had a brief visit with Radha. We know each other from when her son, Lucas, was a patient here. Radha said she expects to be going home tomorrow, and her daughter will visit lei.
--- NOTE | 2019-05-30 15:58 | PDOC.CMPRO ---
- If Service Date Differs Date of service: 05/30/19 Time of Service: 15:58 Care Management Progress Note S/O: Radha is sitting in a wheelchair when CM meets with her. Her breathing continues to improve and she remains afebrile. She states she will be done with the antibiotics tomorrow morning and is going home in the afternoon. CM will continue to follow. A: Radha is a 64 yo female admitted on 05/25/19 for COPD exacerbation and pneumonia. P: Radha will be discharged home when medically cleared by provider. Anticipate patient will resume home O2 and BiPap machine. CM will continue to support patient and discharge planning needs. Transportation will be provided by [facility].
[2019-05-30] MEDS: Enoxaparin 40 MG/0.4 ML SYR SC (17:53)
--- NOTE | 2019-05-30 20:35 | PGE_ITS ---
Date of Service Date of service: 05/30/19 Time of Service: 20:35 Assessment and Plan Assessment and plan (1) COPD exacerbation: Status: Acute Assessment and plan: History of Oxygen dependent COPD, with likely exacerbation based on underlying infection. Patient with an elevated temperature at time of admission, with complaints of change in cough with sputum production. CXR with possible atelectasis and pulmonary edema, but Mrs. Masterson also had a normal BNP, no evidence of ventricular dysfunction by ECHO in February, and potential Bronchitis vs. PNA clinically. She also continued to be febrile despite appropriate coverage for CAP. -Continue broadened antibiotic therapy with Vancomycin and Cefepime, day#4. -Continue but wean IV Steroids, continue nebs. -Continue Buspar as needed for associated anxiety, which also appears to be helping, but appropriate to utilize low dose Lorazepam if needed as well. -Sputum culture not telling. Strep antigen pending at this time as well. -Remains on therapy with BiPAP, but now utilizing it less. (2) Community acquired pneumonia: Status: Acute Assessment and plan: Treatment as above. (3) Chronic obstructive pulmonary disease: Status: Chronic Assessment and plan: Continue antibiotics, steroids, and aggressive nebs as above. NIPPV on an as-needed basis. (4) DAVID (obstructive sleep apnea): Status: Chronic Assessment and plan: Noted. Continue utilization of BiPAP as above. (5) DVT prophylaxis: Status: Acute Assessment and plan: SC enoxaparin. Initiated on IV PPI for GI prophylaxis given need for concurrent steroid therapy. (6) Advance directive on file: Status: Acute Assessment and plan: Remains full code. Subjective Subjective Interval history since last seen: 63 year old woman with a history significant for COPD and DAVID, admitted on 05/25 from [facility] Emergency Department with a diagnosis of Pneumonia with concurrent COPD Exacerbation. Mrs. Masterson has a past medical history significant for Oxygen dependent COPD, Morbid Obesity with DAVID on BiPAP therapy, and PHTN. She had previously noted RV Systolic Dysfunction, but review of her ECHO from 02/2019 shows normal biventricu lar function. Her other history includes a Multinodular Goiter, Depression, Recurrent UTIs, and a history of PE in the past. She presented to the ED with complaints of dyspnea and reported change in sputum production. She was noted to be in acute respiratory distress upon arrival, and was treated with steroids, antibiotics, and BiPAP therapy. Initial work-up included a CXR showing potential mild pulmonary edema, although with labwork showing a normal Pro-BNP. Labwork was noteworthy for mild leukocytosis, unremarkable CMP, and blood gas with normal PH and mild hypercapnia only. She was referred for admission for further evaluation and treatment. This morning Mrs. Masterson reports continued improvement in her breathing. She remains off BiPAP for the majority of her day, and has reports return of her appetite. She has also remained afebrile since changing antibiotic therapy. No overnight events reported. Exam Narrative Exam Narrative: General: appears comfortable, AAOX3, NAD Neck: Supple CV: Regular, non tachycardic, S1S2, No rubs, murmurs, or gallops. Pulmonary: Diminished with improved air entry, now only minimal but continued wheezing. Improved from prior exam. Abdomen: + Bowel Sounds, soft, nontender, nondistended. Obese in contour Vascular: + b/l lower extremity edema Psych: Normal mood and affect. Objective Objective Clinical Data: Abnormal lab results 05/30/19 05/30/19 Range/Units 10:33 10:33 MPV 11.1 H (8.0-11.0) fL Absolute Neutrophils 7.89 H (1.2-6.7) k/cumm Absolute Monocytes 1.06 H (0.11-0.7) k/cumm BUN 24 H (7-18) mg/dL Glucose 114 H (70-100) mg/dL Calcium 8.3 L (8.5-10.1) mg/dL Vital Signs Temperature 36.7 C 05/30/19 16:36 Temperature Source Tympanic 05/30/19 16:36 Pulse 75 05/30/19 16:36 Pulse Rhythm Regular 05/30/19 00:05 Pulse 82 05/28/19 10:30 Respiratory Rate 16 05/30/19 17:53 Respiratory Effort 05/30/19 16:23 Respiratory Depth Shallow 05/30/19 16:23 Respiratory Pattern Normal 05/30/19 16:23 Blood Pressure 166/83 H 05/30/19 16:36 Blood Pressure Mean 83 05/28/19 09:00 Blood Pressure Position Supine 05/28/19 02:21 Pulse Oximetry 96 05/30/19 16:36 Oxygen Delivery Method Nasal Cannula 05/30/19 16:36 Oxygen Flow Rate 2 05/30/19 16:36 Fraction of Inspired Oxygen (FIO2) 30 05/25/19 17:30 Pain Level 0 05/30/19 16:36 Comment 05/29/19 03:25 Intake & Output 05/29/19 05/30/19 05/30/19 23:59 11:59 23:59 Intake Total 350 / 820 960 / 1540 580 / 1540 Balance 350 / 820 960 / 1540 580 / 1540 Intake: IV 350 / 700 600 / 700 100 / 700 Oral 360 / 840 480 / 840 Other: Comment Patient voids independently to the toilet reports voiding on toilet this morning, uses independently Voiding Methods Toilet Laboratory Results WBC 10.60 k/cumm (4.4-10.8) 05/30/19 10:33 RBC 4.72 m/cumm (4.00-5.20) 05/30/19 10:33 Hgb 13.6 g/dL (12.0-15.5) 05/30/19 10:33 Hct 40.5 % (36.0-46.0) 05/30/19 10:33 MCV 85.8 fL (80-95) 05/30/19 10:33 MCH 28.8 pg (27.0-33.0) 05/30/19 10:33 MCHC 33.6 g/dL (32.0-36.0) 05/30/19 10:33 RDW 14.3 % (11.7-14.6) 05/30/19 10:33 Plt Count 284 x1000/uL (130-400) 05/30/19 10:33 MPV 11.1 fL (8.0-11.0) H 05/30/19 10:33 Immature Gran % 0.8 05/30/19 10:33 Neutrophils % 74.4 05/30/19 10:33 Lymphocytes % 14.6 05/30/19 10:33 Monocytes % 10.0 05/30/19 10:33 Eosinophils % 0.1 05/30/19 10:33 Basophils % 0.1 05/30/19 10:33 Absolute Neutrophils 7.89 k/cumm (1.2-6.7) H 05/30/19 10:33 Absolute Lymphocytes 1.55 k/cumm (1.2-3.4) 05/30/19 10:33 Absolute Monocytes 1.06 k/cumm (0.11-0.7) H 05/30/19 10:33 Absolute Eosinophils 0.01 k/cumm (0.0-0.7) 05/30/19 10:33 Absolute Basophils 0.01 k/cumm (0.0-0.2) 05/30/19 10:33 Sample Site Right radial 05/28/19 16:20 pCO2 44 mmHg (34-47) 05/28/19 16:20 pO2 75 mmHg (83-108) L 05/28/19 16:20 O2 Saturation 96 % (94-98) 05/28/19 16:20 ABG pH 7.38 (7.35-7.45) 05/28/19 16:20 ABG HCO3 26 mmol/L (22-28) 05/28/19 16:20 ABG Total CO2 23 mmol/L (22-29) 05/28/19 16:20 ABG Base Excess 0.3 mmol/L (-3-3) 05/28/19 16:20 VBG pH 7.37 (7.32-7.43) 05/25/19 16:45 VBG pCO2 51 mm/Hg (34-47) H 05/25/19 16:45 VBG pO2 32 mm/Hg (28-44) 05/25/19 16:45 VBG HCO3 30 mmol/L (22-28) H 05/25/19 16:45 VBG Total CO2 27 mmol/L (22-29) 05/25/19 16:45 VBG O2 Saturation 60 % (70-80) L 05/25/19 16:45 VBG Base Excess 4.1 mmol/L (-3-3) H 05/25/19 16:45 Oxygen Liter Flow 2 L 05/28/19 16:20 Sodium 140 mmol/L (136-145) 05/30/19 10:33 Potassium 4.0 mmol/L (3.5-5.1) 05/30/19 10:33 Chloride 105 mmol/L (98-107) 05/30/19 10:33 Carbon Dioxide 29.4 mmol/L (21.0-32.0) 05/30/19 10:33 Anion Gap 5.6 mmol/L (3-11) 05/30/19 10:33 BUN 24 mg/dL (7-18) H 05/30/19 10:33 Creatinine 0.65 mg/dL (0.55-1.02) 05/30/19 10:33 Estimated GFR/1.73 m2 >= 60.00 (mL/min/1.73m2) 05/30/19 10:33 Glucose 114 mg/dL (70-100) H 05/30/19 10:33 Calcium 8.3 mg/dL (8.5-10.1) L 05/30/19 10:33 Magnesium 2.2 mg/dL (1.8-2.4) 05/30/19 10:33 Total Bilirubin 1.4 mg/dL (0.2-1.0) H 05/25/19 15:45 AST 21 U/L (15-37) 05/25/19 15:45 ALT 29 U/L (14-59) 05/25/19 15:45 Alkaline Phosphatase 99 U/L (46-116) 05/25/19 15:45 Troponin I < 0.05 ng/mL (0.00-0.06) 05/25/19 15:45 NT-Pro-B Natriuret Pep 57 pg/mL (-299) 05/25/19 15:45 Total Protein 8.2 g/dL (6.4-8.2) 05/25/19 15:45 Albumin 3.5 g/dL (3.4-5.0) 05/25/19 15:45 Procalcitonin < 0.1 ng/mL 05/30/19 10:33 TSH 0.58 uIU/mL (0.36-3.74) 05/26/19 06:30 Urine Color Yellow (Yellow) 05/27/19 05:00 Urine Clarity Clear (Clear) 05/27/19 05:00 Urine pH 6.0 (5-8) 05/27/19 05:00 Ur Specific [place] 1.020 (1.005-1.025) 05/27/19 05:00 Urine Protein Negative mg/dL (Negative) 05/27/19 05:00 Urine Ketones Negative mg/dL (Negative) 05/27/19 05:00 Urine Blood Negative (Negative) 05/27/19 05:00 Urine Nitrite Negative (Negative) 05/27/19 05:00 Urine Bilirubin Negative (Negative) 05/27/19 05:00 Urine Urobilinogen 0.2 EU/dL (Up TO 0.2) 05/27/19 05:00 Ur Leukocyte Esterase Negative (Negative) 05/27/19 05:00 Urine Glucose Negative mg/dL (Negative) 05/27/19 05:00 Vancomycin Trough 19.7 ug/mL (10.0-20.0) 05/30/19 13:15 Ur Strep pneumoniae Ag Negative (Negative) 05/27/19 05:00
[2019-05-31] VITALS (9 sets, daily range): BP systolic 146–173; BP diastolic 74–81; PULSE 64–88; RESP 1–25; TEMP 36.2–36.9; O2SAT 93–98
[2019-05-31] MEDS: CEFEPIME 2 GM in Normal Saline 100 ML IVPB ×2 (01:26→13:00)
[2019-05-31] MEDS: Albuterol/Ipratropium 3 ML UPD VIAL UPD ×3 (06:05→17:55)
[2019-05-31 07:33] LABS: Abs Immature Grans 0.12 k/cumm (0.0-0.09); Absolute Basophil Count 0.01 k/cumm (0.0-0.2); Absolute Lymphocyte Count 1.77 k/cumm (1.2-3.4); Absolute Monocyte Count 0.98 k/cumm (0.11-0.7); Absolute Neutrophil Count 9.47 k/cumm (1.2-6.7); Basophils % 0.1; HCT 40.8 % (36.0-46.0); HGB 13.6 g/dL (12.0-15.5); Lymphocytes % 14.3; Mean Corp. HGB Concentration 33.3 g/dL (32.0-36.0); Mean Corpuscular Hemoglobin 28.6 pg (27.0-33.0); Mean Corpuscular Volume 85.7 fL (80-95); Mean Platelet Volume 11.8 fL (8.0-11.0); Monocytes % 7.9; Neutrophils % 76.7; Platelet Count 247 x1000/uL (130-400); RBC 4.76 m/cumm (4.00-5.20); RBC Distribution Width 14.2 % (11.7-14.6); White Blood Cell Count 12.35 k/cumm (4.4-10.8)
[2019-05-31 07:38] LABS: Anion Gap 6.1 mmol/L (3-11); BUN 26 mg/dL (7-18); CO2 28.9 mmol/L (21.0-32.0); CREATININE 0.63 mg/dL (0.55-1.02); Calcium 8.3 mg/dL (8.5-10.1); Chloride 104 mmol/L (98-107); Glucose 133 mg/dL (70-100); Magnesium 2.1 mg/dL (1.8-2.4); Potassium 4.5 mmol/L (3.5-5.1); Sodium 139 mmol/L (136-145)
[2019-05-31] MEDS: Aspirin 325 MG TAB PO (08:56)
[2019-05-31] MEDS: Benzonatate 200 MG CAP PO ×3 (08:56→20:02)
[2019-05-31] MEDS: guaiFENesin 600 MG TABCR PO ×2 (08:56→20:02)
[2019-05-31] MEDS: Clotrimazole 1% 15 GM TUBE TP ×3 (08:57→20:02)
[2019-05-31] MEDS: Ascorbic Acid 500 MG TAB 1000 MG PO (08:57)
[2019-05-31] MEDS: Fluticasone NASAL SPRAY 16 GM BTL NS (08:57)
[2019-05-31] MEDS: Budesonide 0.5 MG/2 ML UPD VIAL UPD ×2 (09:10→22:16)
[2019-05-31] MEDS: methylPREDNISolone SUCC 40 MG VIAL IVP ×2 (11:19→17:55)
[2019-05-31] MEDS: Pantoprazole 40 MG VIAL IVP (13:00)
[2019-05-31] MEDS: Normal Saline Flush 10 ML SYR IVP (13:00)
--- NOTE | 2019-05-31 16:27 | PGE_ITS ---
Date of Service Date of service: 05/31/19 Time of Service: 16:27 Assessment and Plan Assessment and plan (1) COPD exacerbation: Status: Acute Assessment and plan: History of Oxygen dependent COPD, with likely exacerbation based on underlying infection. Patient with an elevated temperature at time of admission, with complaints of change in cough with sputum production. CXR with possible atelectasis and pulmonary edema, but Mrs. Masterson also had a normal BNP, no evidence of ventricular dysfunction by ECHO in February, and potential Bronchitis vs. PNA clinically. She also continued to be febrile despite appropriate coverage for CAP. -Continue broadened antibiotic therapy with Vancomycin and Cefepime, day#4 by reevaluation today. Procalcitonin <0.1 - plan on discontinuation after a 5 day course. -Continue IV Steroids, nebs. Continue Buspar as needed for associated anxiety, which also appears to be helping. -Sputum culture not telling. Strep antigen negative. (2) Community acquired pneumonia: Status: Acute Assessment and plan: Treatment as above. (3) Chronic obstructive pulmonary disease: Status: Chronic Assessment and plan: Continue antibiotics, steroids, and aggressive nebs as above. BiPAP on an as-needed basis. (4) DAVID (obstructive sleep apnea): Status: Chronic Assessment and plan: Noted. Continue utilization of BiPAP as above. (5) DVT prophylaxis: Status: Acute Assessment and plan: SC enoxaparin. Initiated on IV PPI for GI prophylaxis given need for concurrent steroid therapy. (6) Advance directive on file: Status: Acute Assessment and plan: Remains full code. Subjective Subjective Interval history since last seen: 63 year old woman with a history significant for COPD and DAVID, admitted on 05/25 from [facility] Emergency Department with a diagnosis of Pneumonia with concurrent COPD Exacerbation. Mrs. Masterson has a past medical history significant for Oxygen dependent COPD, Morbid Obesity with DAVID on BiPAP therapy, and PHTN. She had previously noted RV Systolic Dysfunction, but review of her ECHO from 02/2019 shows normal biventricular function. Her other history includes a Multinodular Goiter, Depression, Recurrent UTIs, and a history of PE in the past. She presented to the ED with complaints of dyspnea and reported change in sputum production. She was noted to be in acute respiratory distress upon arrival, and was treated with steroids, antibiotics, and BiPAP therapy. Initial work-up included a CXR showing potential mild pulmonary edema, although with labwork showing a normal Pro-BNP. Labwork was noteworthy for mild leukocytosis, unremarkable CMP, and blood gas with normal PH and mild hypercapnia only. She was referred for admission for further evaluation and treatment. This morning Mrs. Masterson reports continued improvement in her breathing, and is again requesting to go home. However, she does report continued wheezing and cough. She remains off BiPAP for the majority of her day, and has reports return of her appetite. She has also remained afebrile since changing antibiotic therapy. No overnight events reported. Exam Narrative Exam Narrative: General: appears comfortable, AAOX3, NAD Neck: Supple CV: Regular, non tachycardic, S1S2, No rubs, murmurs, or gallops. Pulmonary: Vastly improved air entry, but continued wheezing. Improved from prior exam. Abdomen: + Bowel Sounds, soft, nontender, nondistended. Obese in contour Vascular: + b/l lower extremity edema, chronic appearing Psych: Normal mood and affect. Objective Objective Clinical Data: Abnormal lab results 05/31/19 05/31/19 Range/Units 07:05 07:05 WBC 12.35 H (4.4-10.8) k/cumm MPV 11.8 H (8.0-11.0) fL Absolute Neutrophils 9.47 H (1.2-6.7) k/cumm Absolute Monocytes 0.98 H (0.11-0.7) k/cumm BUN 26 H (7-18) mg/dL Glucose 133 H (70-100) mg/dL Calcium 8.3 L (8.5-10.1) mg/dL Vital Signs Temperature 36.2 C L 05/31/19 11:58 Temperature Source Tympanic 05/31/19 11:58 Pulse 64 05/31/19 11:58 Pulse Rhythm Regular 05/30/19 00:05 Pulse 82 05/28/19 10:30 Respiratory Rate 19 05/31/19 11:58 Respiratory Effort 05/31/19 00:01 Respiratory Depth Shallow 05/31/19 00:01 Respiratory Pattern Normal 05/31/19 00:01 Blood Pressure 146/75 H 05/31/19 11:58 Blood Pressure Mean 83 05/28/19 09:00 Blood Pressure Position Supine 05/28/19 02:21 Pulse Oximetry 98 05/31/19 11:58 Oxygen Delivery Method Cpap 05/31/19 11:58 Oxygen Flow Rate 3 05/31/19 11:41 Fraction of Inspired Oxygen (FIO2) 30 05/25/19 17:30 Pain Level 0 05/31/19 11:58 Comment 05/29/19 03:25 Intake & Output 05/30/19 05/31/19 05/31/19 23:59 11:59 23:59 Intake Total 830 / 1790 960 / 1360 400 / 1360 Balance 830 / 1790 960 / 1360 400 / 1360 Intake: IV 350 / 950 600 / 700 100 / 700 Oral 480 / 840 360 / 660 300 / 660 Other: Comment voids independently in the toilet reports voiding w/o difficulty. Voiding Methods Toilet Laboratory Results WBC 12.35 k/cumm (4.4-10.8) H 05/31/19 07:05 RBC 4.76 m/cumm (4.00-5.20) 05/31/19 07:05 Hgb 13.6 g/dL (12.0-15.5) 05/31/19 07:05 Hct 40.8 % (36.0-46.0) 05/31/19 07:05 MCV 85.7 fL (80-95) 05/31/19 07:05 MCH 28.6 pg (27.0-33.0) 05/31/19 07:05 MCHC 33.3 g/dL (32.0-36.0) 05/31/19 07:05 RDW 14.2 % (11.7-14.6) 05/31/19 07:05 Plt Count 247 x1000/uL (130-400) 05/31/19 07:05 MPV 11.8 fL (8.0-11.0) H 05/31/19 07:05 Immature Gran % 1.0 05/31/19 07:05 Neutrophils % 76.7 05/31/19 07:05 Lymphocytes % 14.3 05/31/19 07:05 Monocytes % 7.9 05/31/19 07:05 Eosinophils % 0.0 05/31/19 07:05 Basophils % 0.1 05/31/19 07:05 Absolute Neutrophils 9.47 k/cumm (1.2-6.7) H 05/31/19 07:05 Absolute Lymphocytes 1.77 k/cumm (1.2-3.4) 05/31/19 07:05 Absolute Monocytes 0.98 k/cumm (0.11-0.7) H 05/31/19 07:05 Absolute Eosinophils 0.00 k/cumm (0.0-0.7) 05/31/19 07:05 Absolute Basophils 0.01 k/cumm (0.0-0.2) 05/31/19 07:05 Sample Site Right radial 05/28/19 16:20 pCO2 44 mmHg (34-47) 05/28/19 16:20 pO2 75 mmHg (83-108) L 05/28/19 16:20 O2 Saturation 96 % (94-98) 05/28/19 16:20 ABG pH 7.38 (7.35-7.45) 05/28/19 16:20 ABG HCO3 26 mmol/L (22-28) 05/28/19 16:20 ABG Total CO2 23 mmol/L (22-29) 05/28/19 16:20 ABG Base Excess 0.3 mmol/L (-3-3) 05/28/19 16:20 VBG pH 7.37 (7.32-7.43) 05/25/19 16:45 VBG pCO2 51 mm/Hg (34-47) H 05/25/19 16:45 VBG pO2 32 mm/Hg (28-44) 05/25/19 16:45 VBG HCO3 30 mmol/L (22-28) H 05/25/19 16:45 VBG Total CO2 27 mmol/L (22-29) 05/25/19 16:45 VBG O2 Saturation 60 % (70-80) L 05/25/19 16:45 VBG Base Excess 4.1 mmol/L (-3-3) H 05/25/19 16:45 Oxygen Liter Flow 2 L 05/28/19 16:20 Sodium 139 mmol/L (136-145) 05/31/19 07:05 Potassium 4.5 mmol/L (3.5-5.1) 05/31/19 07:05 Chloride 104 mmol/L (98-107) 05/31/19 07:05 Carbon Dioxide 28.9 mmol/L (21.0-32.0) 05/31/19 07:05 Anion Gap 6.1 mmol/L (3-11) 05/31/19 07:05 BUN 26 mg/dL (7-18) H 05/31/19 07:05 Creatinine 0.63 mg/dL (0.55-1.02) 05/31/19 07:05 Estimated GFR/1.73 m2 >= 60.00 (mL/min/1.73m2) 05/31/19 07:05 Glucose 133 mg/dL (70-100) H 05/31/19 07:05 Calcium 8.3 mg/dL (8.5-10.1) L 05/31/19 07:05 Magnesium 2.1 mg/dL (1.8-2.4) 05/31/19 07:05 Total Bilirubin 1.4 mg/dL (0.2-1.0) H 05/25/19 15:45 AST 21 U/L (15-37) 05/25/19 15:45 ALT 29 U/L (14-59) 05/25/19 15:45 Alkaline Phosphatase 99 U/L (46-116) 05/25/19 15:45 Troponin I < 0.05 ng/mL (0.00-0.06) 05/25/19 15:45 NT-Pro-B Natriuret Pep 57 pg/mL (-299) 05/25/19 15:45 Total Protein 8.2 g/dL (6.4-8.2) 05/25/19 15:45 Albumin 3.5 g/dL (3.4-5.0) 05/25/19 15:45 Procalcitonin < 0.1 ng/mL 05/30/19 10:33 TSH 0.58 uIU/mL (0.36-3.74) 05/26/19 06:30 Urine Color Yellow (Yellow) 05/27/19 05:00 Urine Clarity Clear (Clear) 05/27/19 05:00 Urine pH 6.0 (5-8) 05/27/19 05:00 Ur Specific [place] 1.020 (1.005-1.025) 05/27/19 05:00 Urine Protein Negative mg/dL (Negative) 05/27/19 05:00 Urine Ketones Negative mg/dL (Negative) 05/27/19 05:00 Urine Blood Negative (Negative) 05/27/19 05:00 Urine Nitrite Negative (Negative) 05/27/19 05:00 Urine Bilirubin Negative (Negative) 05/27/19 05:00 Urine Urobilinogen 0.2 EU/dL (Up TO 0.2) 05/27/19 05:00 Ur Leukocyte Esterase Negative (Negative) 05/27/19 05:00 Urine Glucose Negative mg/dL (Negative) 05/27/19 05:00 Vancomycin Trough 19.7 ug/mL (10.0-20.0) 05/30/19 13:15 Ur Strep pneumoniae Ag Negative (Negative) 05/27/19 05:00
--- NOTE | 2019-05-31 17:21 | PDOC.CMPRO ---
- If Service Date Differs Date of service: 05/31/19 Time of Service: 17:22 Care Management Progress Note S/O: Radha is sitting in a wheelchair when CM meets with her. She reports she is disappointed that she is not being discharged home today as she had plans for her grandson to spend the night at her house with her. She continues to improve and is breathing better. CM will continue to follow. A: Radha is a 64 yo female admitted on 05/25/19 for COPD exacerbation and pneumonia. P: Radha will be discharged home when medically cleared by provider. Anticipate she will resume home O2 and BiPap machine. CM will contiue to support patient and discharge planning needs. Transportation will be by [facility] van upon discharge.
[2019-05-31] MEDS: Enoxaparin 40 MG/0.4 ML SYR SC (17:55)
[2019-05-31] MEDS: Budesonide/Formoterol 160/4.5 6 GM 60 PUFF INH IH (20:02)
[2019-06-01] MEDS: Albuterol/Ipratropium 3 ML UPD VIAL UPD ×3 (00:11→11:42)
[2019-06-01] MEDS: CEFEPIME 2 GM in Normal Saline 100 ML IVPB ×2 (00:11→12:07)
[2019-06-01] MEDS: methylPREDNISolone SUCC 40 MG VIAL IVP ×2 (01:19→10:32)
[2019-06-01 01:30] VITALS: RESP 25
[2019-06-01 06:50] VITALS: RESP 4
[2019-06-01] MEDS: Normal Saline Flush 10 ML SYR IVP ×3 (06:50→12:07)
[2019-06-01 07:40] VITALS: BP 132/79; PULSE 66; RESP 20; TEMP 36.2; O2SAT 96
[2019-06-01 07:50] LABS: Abs Immature Grans 0.16 k/cumm (0.0-0.09); Absolute Eosinophil Count 0.01 k/cumm (0.0-0.7); Absolute Monocyte Count 1.22 k/cumm (0.11-0.7); Eosinophils % 0.1; HCT 42.7 % (36.0-46.0); HGB 14.1 g/dL (12.0-15.5); Immature Grans % 1.1; Mean Corpuscular Hemoglobin 28.3 pg (27.0-33.0); Mean Corpuscular Volume 85.6 fL (80-95); Mean Platelet Volume 11.5 fL (8.0-11.0); Monocytes % 8.6; Neutrophils % 78.2; Platelet Count 297 x1000/uL (130-400); RBC 4.99 m/cumm (4.00-5.20); RBC Distribution Width 14.4 % (11.7-14.6)
[2019-06-01] MEDS: Budesonide 0.5 MG/2 ML UPD VIAL UPD (08:12)
[2019-06-01] MEDS: Benzonatate 200 MG CAP PO (08:28)
[2019-06-01] MEDS: guaiFENesin 600 MG TABCR PO (08:28)
[2019-06-01] MEDS: Aspirin 325 MG TAB PO (08:28)
[2019-06-01] MEDS: Ascorbic Acid 500 MG TAB 1000 MG PO (08:28)
[2019-06-01] MEDS: Fluticasone NASAL SPRAY 16 GM BTL NS (08:29)
[2019-06-01] MEDS: Clotrimazole 1% 15 GM TUBE TP (08:31)
[2019-06-01 09:43] VITALS: RESP 20; RESP 25
--- NOTE | 2019-06-01 10:16 | W.PM.DS.N ---
Date of service: 06/01/19 Time of Service: 10:17 DS: Diagnosis Discharge Diagnosis (1) COPD exacerbation: Status: Acute (2) Community acquired pneumonia: Status: Acute (3) DAVID (obstructive sleep apnea): Status: Chronic Discharge Plan Disposition Patient Disposition: HOME Condition: Stable Discharge Details Chief Complaint: SOB Reason For Visit: COPD EXACERBATION, PNEUMONIA Admit Date/Time: 05/25/19 18:29 Admit Provider: Vamsi Blackmon Attending Provider: Vamsi Blackmon Primary Care Provider: Alphonso Murphy ED Provider: Rosa Arellano Hospital Course Hospital Course: Chief Complaint: Dyspnea HPI: 63 year old woman with a history significant for COPD and DAVID, admitted on 05/25 from [facility] Emergency Department with a diagnosis of Pneumonia with concurrent COPD Exacerbation. Mrs. Masterson has a past medical history significant for Oxygen dependent COPD, Morbid Obesity with DAVID on BiPAP therapy, and PHTN. She had previously noted RV Systolic Dysfunction, but review of her ECHO from 02/2019 shows normal biventricular function. Her other history includes a Multinodular Goiter, Depression, Recurrent UTIs, and a history of PE in the past. She presented to the ED with complaints of dyspnea and reported change in sputum production. She was noted to be in acute respiratory distress upon arrival, and was treated with steroids, antibiotics, and BiPAP therapy. Initial work-up included a CXR showing potential mild pulmonary edema, although with labwork showing a normal Pro-BNP. Labwork was noteworthy for leukocytosis, unremarkable CMP, and blood gas with normal PH and mild hypercapnia only. Her temperature was also elevated at 37.8. She was referred for admission for further evaluation and treatment. Following admission the patient developed a worsening leukocytosis and fever with a Temp of 38.7, and required near 48 hours of continuous BiPAP necessitating broadening of antibiotic coverage, since which she has improved significantly. This morning Mrs. Masterson reports continued improvement in her breathing, and is again requesting to go home. She does have continued wheezing and cough, although improved, and understands that she would benefit from addition IV Steroids but is requesting to be discharged. She remains off BiPAP for the majority of her day, and has reports return of her appetite. She has also remained afebrile since changing antibiotic therapy. No overnight events reported. Hospital Course: (1) COPD exacerbation: History of Oxygen dependent COPD, with likely exacerbation based on underlying infection. Patient with an elevated temperature at time of admission, with complaints of change in cough with sputum production. CXR with possible atelectasis and pulmonary edema, but Mrs. Masterson also had a normal BNP, no evidence of ventricular dysfunction by ECHO in February, and potential Bronchitis vs. PNA clinically. She also continued to be febrile despite appropriate coverage for CAP. -Has received a 5 days course of broadened antibiotic therapy with Vancomycin and Cefepime. Procalcitonin is <0.1. No further antibiotics planned at this time. -Continue Steroids and aim for a slow taper at home, along with aggressive nebs. Continue Buspar as needed for associated anxiety, which also appears to be helping. -Sputum culture not telling. Strep antigen negative. (2) Community acquired pneumonia: Treatment as above. (3) Chronic obstructive pulmonary disease: Continue antibiotics, steroids, and aggressive nebs as above. BiPAP on an as-needed basis. (4) DAVID (obstructive sleep apnea): Continue utilization of BiPAP as above. (5) LE Edema Chronic LE edema in obese woman with likely chronic venous stasis. Despite initial CXR read, BNP was low normal at 57, and ECHO from less than 3 months ago shows normal LV and RV function, with mild PHTN and PAPs in the 40's. Discussed with patient as she is complaining of feeling slightly swollen, and requesting lasix - will discharge with low dose furosemide, with repeat BMP in 3-4 days. Blood Pressure, renal function all acceptable. (6) DVT prophylaxis: Was maintained on SC enoxaparin. Initiated on IV PPI for GI prophylaxis given need for concurrent steroid therapy. (7) Advance directive on file: Remains full code. Home Meds and New Rx's Prescriptions: New buspirone 5 mg Tablet 10 mg PO TID PRNQty: 60 RF: 0 prednisone 20 mg tablet 20 mg PO DAILY Qty: 39 RF: 0 furosemide 20 mg tablet 20 mg PO DAILY Qty: 7 RF: 0 Continued triamcinolone acetonide 0.1 % cream 1 applic Topical BID PRN (Reason: rash on legs) Qty: 30 RF: 2 albuterol sulfate [ProAir HFA] 90 mcg/actuation HFA aerosol inhaler 1 - 2 puff Inhalation Q6H PRN Qty: 1 RF: 11 clotrimazole 1 % cream 1 applic topical TID Qty: 30 RF: 2 nystatin 100,000 unit/gram powder 1 applic TP BID PRN (Reason: intertrigo) Qty: 30 RF: 5 citalopram [Celexa] 20 mg tablet 20 mg PO DAILY RF: 0 gabapentin 100 mg capsule 200 mg PO BID RF: 0 magnesium chloride [Mag 64] 64 mg tablet,delayed release (DR/EC) 64 mg PO DAILY RF: 0 potassium chloride 10 mEq capsule, extended release 20 meq PO BID RF: 0 ketotifen fumarate [Zaditor] 0.025 % (0.035 %) drops 1 drp OP BID PRN (Reason: allergy symptoms) Qty: 5 RF: 2 ascorbic acid (vitamin C) 1,000 MG tablet 1,000 mg PO DAILY RF: 0 (DME) Aerochamber Mini 1 EACH spacer 1 ea Inhalation PRN Qty: 1 RF: 0 BiPAP Inhalation Gas 5 l IN DIRECTED RF: 0 oxygen Inhalation 2 l Intranasal DIRECTED RF: 0 clotrimazole 45 GM cream 45 gm Topical BID prn Qty: 45 RF: 2 silver sulfadiazine 20 GM cream 1 applic Topical BID PRNQty: 60 RF: 2 ipratropium-albuterol 0.5 mg-3 mg(2.5 mg base)/3 mL solution for nebulization 3 ml IH QID MDD 4 nebs Qty: 180 RF: 3 Symbicort 160-4.5 mcg/actuation HFA aerosol inhaler 2 puff Inhalation BID Qty: 1 RF: 0 fluticasone propionate [Flonase Allergy Relief] 50 mcg/actuation spray,suspension 1 spray NS DAILY Qty: 1 RF: 2 aspirin 325 MG tablet 325 mg PO DAILY Qty: 0 RF: 0 Discharge Instructions Stand Alone Forms: Nursing Discharge Form Referrals: Alphonso Murphy [Primary Care Provider] - 06/05/19 10:20 am Activity:: No strenuous activity Equipment/Supplies:: No Equipment Needed Diet:: Low Sodium Discharge Orders Discharge Orders: Discharge Order (Routine); Ordered 06/01/19 Ordered By: Marco Manjarrez DS: Summary Status at Discharge Functional status at discharge: independent ambulation Overall status at discharge: patient is back to baseline Mental Status: mental status grossly normal Speech and Movement: speech and movement normal Mood: congruent mood Affect: normal affect Exam Narrative Exam Narrative: General: appears comfortable, AAOX3, NAD Neck: Supple CV: Regular, non tachycardic, S1S2, No rubs, murmurs, or gallops. Pulmonary: Vastly improved air entry, continued but improved wheezing. Improved from prior exam. Abdomen: + Bowel Sounds, soft, nontender, nondistended. Obese in contour Vascular: + b/l lower extremity edema, chronic appearing Psych: Normal mood and affect. Psych Mental Status: mental status grossly normal Speech and Movement: speech and movement normal Mood: congruent mood Affect: normal affect DS: Data Vitals/I&O Vitals and I&O: Vital Signs Temperature 36.2 C L 06/01/19 07:40 Temperature Source Tympanic 06/01/19 07:40 Pulse 66 06/01/19 07:40 Pulse Rhythm Regular 05/31/19 20:00 Pulse 82 05/28/19 10:30 Respiratory Rate 20 06/01/19 09:43 Respiratory Effort Non-Labored 06/01/19 03:26 Respiratory Depth Normal 06/01/19 03:26 Respiratory Pattern Normal 06/01/19 03:26 Blood Pressure 132/79 06/01/19 07:40 Blood Pressure Mean 83 05/28/19 09:00 Blood Pressure Position Supine 05/28/19 02:21 Pulse Oximetry 96 06/01/19 07:40 Oxygen Delivery Method Cpap 06/01/19 07:40 Oxygen Flow Rate 0 06/01/19 07:40 Fraction of Inspired Oxygen (FIO2) 30 05/25/19 17:30 Pain Level 0 06/01/19 07:40 Comment 06/01/19 04:00 Intake & Output 05/31/19 05/31/19 06/01/19 11:59 23:59 11:59 Intake Total 960 / 1870 910 / 1870 500 / 500 Balance 960 / 1870 910 / 1870 500 / 500 Intake: IV 600 / 970 370 / 970 350 / 350 Oral 360 / 900 540 / 900 150 / 150 Other: Comment reports voiding w/o difficulty. pt gets up AD SHANDA to void. Voiding Methods Toilet Incontinent Data Completed and Pending Completed studies during hospitalization [Text1]: Exam(s) INFORMATION: Exam: XR Chest, 1 View Exam date and time: 05/25/2019 4:34 PM Clinical history: 64 years old, female; Cough and shortness of breath; Additional info: Undergoing breathing treatment at time of exam TECHNIQUE: Imaging protocol: XR of the chest Views: 1 view. COMPARISON: CR XR CHEST 2V PA LATERAL 12/13/2018 2:28 PM FINDINGS: Lungs: Mild diffuse haziness of the central markings bilaterally this is more prominent at the right lung base where there more prominent reticular densities. Pleural space: Unremarkable. No pleural effusion. No pneumothorax. Heart/Mediastinum: Unremarkable. No cardiomegaly. Vasculature: Mild ectasia of the thoracic aorta and a dominant vessels. Bones/joints: Unremarkable. IMPRESSION: Findings suggesting mild pulmonary edema and mild atelectasis at the right lung base. Labs on day of discharge: Labs from last 24 hours 06/01/19 06/01/19 07:15 07:15 WBC 14.20 H RBC 4.99 Hgb 14.1 Hct 42.7 MCV 85.6 MCH 28.3 MCHC 33.0 RDW 14.4 Plt Count 297 MPV 11.5 H Immature Gran % 1.1 Neutrophils % 78.2 Lymphocytes % 12.0 Monocytes % 8.6 Eosinophils % 0.1 Basophils % 0.0 Absolute Neutrophils 11.10 H Absolute Lymphocytes 1.70 Absolute Monocytes 1.22 H Absolute Eosinophils 0.01 Absolute Basophils 0.00 Sodium Pending Potassium Pending Chloride Pending Carbon Dioxide Pending Anion Gap Pending BUN Pending Creatinine Pending Estimated GFR/1.73 m2 Pending Glucose Pending Calcium Pending Magnesium Pending Sputum Culture Final 05/28/19 Day 1 Result ISOLATES BELOW DAY 1 GROWTH HEAVY GROWTH ISOLATE 1 APPEARANCE Normal Marisela Day 2 Result ISOLATES BELOW DAY 2 GROWTH HEAVY GROWTH ISOLATE 1 APPEARANCE Normal Marisela Day 3 Result ISOLATES BELOW DAY 3 GROWTH HEAVY GROWTH ISOLATE 1 APPEARANCE Normal Marisela Organism 1 NORMAL MARISELA GROWTH HEAVY GROWTH Gram Stain Final 05/25/19 GRAM STAIN Many White Blood Cells Many Epithelial Cells Many Gram Positive Cocci Many Gram Negative [facility] Medical History Chronic headaches (Chronic) Recent Neurology consult for possible papilledema. Chronic obstructive lung disease (Chronic) Quit smoking 2010. PFTs 09/2012 showed an FEV1 of 60% with improvement to 80% with bronchodilator, thought to be severe restrictive disease. 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) Grief at loss of child (Acute) Hypercapnic respiratory failure (Resolved) Insomnia with sleep apnea (Chronic) Knee pain, bilateral (Chronic 07/23/14) s/p bilat TKR (left infected with mult surg and decreased mobility) Low back pain with sciatica (Chronic 05/03/14) CT at [facility] L34 spinal stenosis Morbid obesity (Chronic 04/05/13) Obstructive sleep apnea syndrome (Chronic) Pulmonary embolism (Resolved) Recurrent UTI (Chronic) Right ventricular dysfunction (Chronic) Sensorineural hearing loss, bilateral (Chronic 08/29/13) Urinary incontinence (Chronic) On Detrol Varicose veins of lower extremity (Chronic) Wrist pain, right (Acute) Surgical History Fasciotomy, Foot (~1996) LEFT History of Surgical Procedure (Chronic) a. Right and left toal knee replacements. b. Left knee has been repeatedly operated on with slava surgies, three replacements. Replacement of total knee joint Bilateral; left-became [id number]-urcaerje surgeries Family History Mother Diabetes Personal history of malignant neoplasm LUNG Father Personal history of malignant neoplasm BRAIN Grandfather No problems noted. Grandfather No problems noted. Grandmother No problems noted. Grandmother No problems noted. Social History Smoking/Tobacco Use Status: Former Tobacco Use Alcohol Intake: never Drug use: Never Current gender identity: female Do you feel safe at home: Yes Do you feel safe in your relationship?: Yes
[2019-06-01 11:42] VITALS: RESP 1; RESP 18; RESP 8
[2019-06-01 11:55] VITALS: RESP 18; RESP 8
[2019-06-01] MEDS: Pantoprazole 40 MG VIAL IVP (12:07)
--- NOTE | 2019-06-01 12:45 | PDOC.CMPRO ---
- If Service Date Differs Date of service: 06/01/19 Time of Service: 12:46
--- NOTE | 2019-06-01 12:48 | PDOC.CMDIS ---
- If Service Date Differs Date of service: 06/01/19 Time of Service: 12:48 LACE Index Scoring Tool - Questions: Length of Stay (in days): 7 - 13 Acuity (Admit via E.D.?): Yes Comorbidities: Chronic Pulmonary Disease E.D. Visits: 5 - Answers: Total Score: 14 Risk of Readmission: High Risk Care Management Discharge Reason for Hospitalization: COPD Exacerbation Discharge Plan: Radha is being discharged home today she declines home health services she is enrolled with Pulmonary Rehab and receives support from RT. She will resume home oxygen, nebulizer and BIPAP. Radha will be transported home via wheelchair van coordinated by CM. Patient/Family Education Needs: Discharge education, limitations and follow up plan of care. CM provided education and concerns related to continued wheezing. She will use her nebulizer and understands the steroid taper. Services Needed at Discharge: DME Agency, Oxygen Therapy, Respiratory Therapy, Transportation
[2019-06-01 14:10] LABS: Anion Gap 7.8 mmol/L (3-11); BUN 25 mg/dL (7-18); CO2 28.2 mmol/L (21.0-32.0); CREATININE 0.67 mg/dL (0.55-1.02); Calcium 7.9 mg/dL (8.5-10.1); Chloride 104 mmol/L (98-107); Glucose 126 mg/dL (70-100); Magnesium 2.2 mg/dL (1.8-2.4); Potassium 4.2 mmol/L (3.5-5.1); Sodium 140 mmol/L (136-145)
== END 2019-06-01 12:55 | disposition home or self-care (01) | DRG 190 ==
LOC: ER 16:17 → MS 19:57 → ICU 05-26 00:49 → MS 05-28 12:26 → ICU 06-04 12:58
PROVIDERS: Admitting Provider Internal Medicine; Emergency Provider Physician Assistant; PCP Family Medicine; Visit Provider Internal Medicine
DX: J44.1 Chronic obstructive pulmonary disease with (acute) exacerbation (principal); J18.9 Pneumonia, unspecified organism; Z68.45 Body mass index [BMI] 70 or greater, adult; R06.03 Acute respiratory distress; J44.0 Chronic obstructive pulmonary disease with (acute) lower respiratory infection; G47.33 Obstructive sleep apnea (adult) (pediatric); R60.0 Localized edema; Z99.81 Dependence on supplemental oxygen; E66.01 Morbid (severe) obesity due to excess calories; I27.20 Pulmonary hypertension, unspecified; E04.2 Nontoxic multinodular goiter; F32.9 Major depressive disorder, single episode, unspecified; Z87.440 Personal history of urinary (tract) infections; Z86.711 Personal history of pulmonary embolism; Z87.891 Personal history of nicotine dependence
CPT/HCPCS: 36415; 80048; 80053; 82805; 84145; 94640; 99223; 99232; 99239; J1650; 36600; 71045; 80202; 81003; 83735; 83880; 84443; 84484; 85025; 87070; 87205; 87450; J0696; J2060; J2930; J3370; J3480; J7611; J7613; J7620; J7626

== ENCOUNTER 2019-06-11 14:00 | Outpatient (RCR) | payer MEDICARE, MEDICAID, SELFPAY | END 2019-06-14 23:59 | disposition home or self-care (01) | LOC: PRC 14:00 | PROVIDERS: PCP Family Medicine; Visit Provider Family Medicine | DX: J44.9 Chronic obstructive pulmonary disease, unspecified (principal); Z51.89 Encounter for other specified aftercare | CPT/HCPCS: G0424 ==

== ENCOUNTER 2019-06-27 11:16 | Outpatient (CLI) | payer MEDICARE, MEDICAID, SELFPAY ==
--- NOTE | 2019-06-27 11:04 | DI.RAD_ITS ---
EXAM: XR WRIST RT COMPLETE INDICATION: pain in right wrist. COMPARISON: XR WRIST RT LIMITED from 05/09/2019 TECHNIQUE: 2D digital imaging was performed. FINDINGS: There is widening of the scapholunate distance. This raises a question of scapholunate ligament tear . No acute fracture or dislocation is present. There are mild degenerative changes seen at the dist al radioulnar joint and the 1st carpometacarpal joint. The bones are normally mineralized. The soft tissues are unremarkable.
--- NOTE | 2019-06-27 11:41 | DI.RAD_ITS ---
EXAM: XR WRIST LT LIMITED INDICATION: Comparison. COMPARISON: XR WRIST RT COMPLETE from 06/27/2019 TECHNIQUE: 2D digital imaging was performed. FINDINGS: The right and left scapholunate distances appear symmetric. There are degenerative changes seen at t he distal radioulnar joints bilaterally. The soft tissues are unremarkable.
== END 2019-06-27 11:36 ==
PROVIDERS: PCP Family Medicine; Visit Provider Student in an Organized Health Care Education/Training Program
DX: M25.531 Pain in right wrist (principal); M18.11 Unilateral primary osteoarthritis of first carpometacarpal joint, right hand; M19.031 Primary osteoarthritis, right wrist; M19.032 Primary osteoarthritis, left wrist; S63.511D Sprain of carpal joint of right wrist, subsequent encounter; W19.XXXD Unspecified fall, subsequent encounter
CPT/HCPCS: 99214; 73100; 73110

== ENCOUNTER 2019-07-11 14:00 | Outpatient (RCR) | payer MEDICARE, MEDICAID, SELFPAY | END 2019-07-14 23:59 | disposition home or self-care (01) | LOC: PRC 14:00 | PROVIDERS: PCP Family Medicine; Visit Provider Family Medicine | DX: J44.9 Chronic obstructive pulmonary disease, unspecified (principal); Z51.89 Encounter for other specified aftercare | CPT/HCPCS: G0424 ==

== ENCOUNTER 2019-07-27 11:31 | Outpatient (CLI) | payer MEDICARE, MEDICAID, SELFPAY ==
[2019-07-27 13:41] LABS: Hemoglobin A1C 5.5 % (4.5-6.2)
== END 2019-07-27 11:51 ==
PROVIDERS: PCP Family Medicine; Visit Provider Family Medicine
DX: R73.9 Hyperglycemia, unspecified (principal)
CPT/HCPCS: 36415; 83036

== ENCOUNTER 2019-08-01 14:00 | Outpatient (RCR) | payer MEDICARE, MEDICAID, SELFPAY | END 2019-08-14 23:59 | disposition home or self-care (01) | LOC: PRC 14:00 | PROVIDERS: PCP Family Medicine; Visit Provider Family Medicine | DX: J44.9 Chronic obstructive pulmonary disease, unspecified (principal); Z51.89 Encounter for other specified aftercare | CPT/HCPCS: G0424 ==

== ENCOUNTER 2019-09-12 14:00 | Outpatient (RCR) | payer MEDICARE, MEDICAID, SELFPAY | END 2019-09-14 23:59 | disposition home or self-care (01) | LOC: PRC 14:00 | PROVIDERS: PCP Family Medicine; Visit Provider Family Medicine | DX: J44.9 Chronic obstructive pulmonary disease, unspecified (principal); Z51.89 Encounter for other specified aftercare | CPT/HCPCS: G0424 ==

== ENCOUNTER 2019-09-15 04:19 | Outpatient (RCR) | payer MEDICARE, MEDICAID, SELFPAY | END 2019-10-13 23:59 | disposition home or self-care (01) | LOC: PRC 04:19 | PROVIDERS: PCP Family Medicine; Visit Provider Family Medicine | DX: J44.9 Chronic obstructive pulmonary disease, unspecified (principal); Z51.89 Encounter for other specified aftercare ==

== ENCOUNTER 2019-10-04 11:00 | Outpatient (RCR) | payer SELFPAY ==
--- NOTE | 2019-09-20 12:04 | PR3E_ITS ---
64 year old female who started the Cardiopulmonary Rehab maintenance phase after completing the Phase 2 Pulmonary program on September 12, 2019. PMH: COPD, oxygen dependent, DAVID (bipap), chronic respiratory failure, former smoker (quit 2009), morbid obesity, Right ventricular dysfunction, Left ventricular hypertrophy, pulmonary embolism, recurrent UTI, bilateral hearing loss, multinodular goiter, and depression First day of maintenance program was 09/18/19- Resting BP 105/66, HR 83 bpm O2 via NC 93% 3L. Tolerated 25 minutes of exercise on the NuStep and UBE. HR w/ exercise ranged 83-91bpm. O2 ranged 92-95%. SHONDA RPE ratings appropriate at 10- 13 per activity. Ms. Masterson plans to continue exercising regularly with our program, two days per week at 11am. We will continue to monitor, guide, and progress her as tolerated.
== END 2019-10-13 23:59 | disposition home or self-care (01) ==
LOC: CR 11:00
PROVIDERS: PCP Family Medicine; Visit Provider Family Medicine
DX: Z51.89 Encounter for other specified aftercare (principal)

== ENCOUNTER 2019-10-14 03:50 | Outpatient (RCR) | payer SELFPAY | END 2019-11-13 23:59 | disposition home or self-care (01) | LOC: CR 03:50 | PROVIDERS: PCP Family Medicine; Visit Provider Family Medicine | DX: Z51.89 Encounter for other specified aftercare (principal) ==

== ENCOUNTER 2020-03-23 16:40 | Emergency (ER) | payer OTHER, MEDICAID, SELFPAY ==
[2020-03-23 16:45] VITALS: BP 149/71; PULSE 86; RESP 24; TEMP 36.9; O2SAT 95
--- NOTE | 2020-03-23 16:53 | ED.GENADUL_ITS ---
Discharge Plan Disposition Patient Disposition: HOME Condition: Stable Discharge Details Chief Complaint: SOB Clinical Impression: COPD exacerbation, Pneumonia Primary Care Provider: Alphonso Murphy ED Provider: Cindi Fox Home Meds and New Rx's Prescriptions: New doxycycline hyclate 100 mg tablet 100 mg PO BID 7 Days Qty: 14 RF: 0 prednisone 20 mg tablet 60 mg PO DAILY 5 Days Qty: 15 RF: 0 Continued triamcinolone acetonide 0.1 % cream 1 applic Topical BID PRN (Reason: rash on legs) Qty: 30 RF: 2 budesonide-formoterol [Symbicort] 160-4.5 mcg/actuation HFA aerosol inhaler 2 puff Inhalation BID Qty: 1 RF: 11 buspirone 5 mg tablet 10 mg PO TID PRN (Reason: anxiety) Qty: 60 RF: 11 potassium chloride 10 mEq capsule, extended release 20 meq PO BID Qty: 120 RF: 11 furosemide 40 mg tablet 40 mg PO DAILY Qty: 90 RF: 3 fluticasone propionate [Flonase Allergy Relief] 50 mcg/actuation spray,suspension 1 spray NS DAILY Qty: 1 RF: 8 triamcinolone acetonide 0.1 % cream 1 applic TP BID PRN (Reason: neck/chest rash) Qty: 30 RF: 0 albuterol sulfate [ProAir HFA] 90 mcg/actuation HFA aerosol inhaler 1 - 2 puff Inhalation Q6H PRN Qty: 1 RF: 11 clotrimazole 1 % cream 1 applic topical TID Qty: 30 RF: 2 nystatin 100,000 unit/gram powder 1 applic TP BID PRN (Reason: intertrigo) Qty: 30 RF: 5 citalopram [Celexa] 20 mg tablet 20 mg PO DAILY RF: 0 ketotifen fumarate [Zaditor] 0.025 % (0.035 %) drops 1 drp OP BID PRN (Reason: allergy symptoms) Qty: 5 RF: 2 ascorbic acid (vitamin C) 1,000 MG tablet 1,000 mg PO DAILY RF: 0 (DME) Aerochamber Mini 1 EACH spacer 1 ea Inhalation PRN Qty: 1 RF: 0 BiPAP Inhalation Gas 5 l IN DIRECTED RF: 0 oxygen Inhalation 2 l Intranasal DIRECTED RF: 0 silver sulfadiazine 20 GM cream 1 applic Topical BID PRNQty: 60 RF: 2 ipratropium-albuterol 0.5 mg-3 mg(2.5 mg base)/3 mL solution for nebulization 3 ml IH QID MDD 4 nebs Qty: 180 RF: 3 metformin 1,000 mg tablet 1,000 mg PO BID Qty: 180 RF: 3 gabapentin 100 mg capsule 100 mg PO BID Qty: 180 RF: 3 montelukast [Singulair] 10 mg tablet 10 mg PO DAILY Qty: 30 RF: 11 aspirin 325 MG tablet 325 mg PO DAILY Qty: 0 RF: 0 Discharge Instructions Instructions: COPD (Chronic Obstructive Pulmonary Disease) (ED), Pneumonia (ED) Additional Instructions: Follow up with primary care provider in 3-5 days. Return to ED sooner if any worsening or concerns. Increase oral fluids. Take medications as prescribed. Return immediately or call 9 1 for any increased shortness of breath, fever, chills worsening in any way. Use BiPAP as directed by respiratory therapy follow-up closely with pulmonary. At this time your Liane test is pending please follow quarantine measures as directed. Stand Alone Forms: PENDING COVID-19 TESTING Referrals: Alphonso Murphy [Primary Care Provider] - Medical Decision Making 4-year-old female history of COPD presents with increased shortness of breath with yellow productive sputum over the last 24 hours. On initial exam she is satting 93% on 5 L nasal cannula, no wheezes appreciated to auscultation. She does have some increased work of breathing. 1706: Respiratory here for patient assessment plan is to put patient on BiPAP to see if this improves her shortness of breath. 1729: Patient placed on BiPAP 20/15 by respiratory therapy she is currently satting 97% on 30% oxygen and reports feeling better. ABG ordered and portable chest x-ray COVID test is pending at this time. 1821: Respiratory therapist Luke at bedside removing patient from BiPAP machine ABG shows patient over oxygenated with a PO2 of 118, ABG pH is 7.50, PCO2 30, bicarb 23, CO2 20, O2 sat 99% Patient decreased to 4 L nasal cannula is satting 93% heart rate of 78. Imaging protocol: XR of the chest Views: 1 view. COMPARISON: CR XR PORTABLE CHEST AP 05/25/2019 4:22 PM FINDINGS: Lungs: Haziness in the left lung base. Mild diffuse interstitial prominence and bilateral perihilar haziness. Pleural space: Unremarkable. No pleural effusion. No pneumothorax. Heart/Mediastinum: Cardiomediastinal silhouette is magnified due to technique. Vasculature: Calcified aortic knob. Bones/joints: No acute abnormality or aggressive osseous lesion. IMPRESSION: Findings are concerning for bilateral early/developing acute interstitial and probable left basal airspace disease in which pulmonary edema or developing infectious pneumonia should be entertained. Thank you for allowing us to participate in the care of your patient. Dictated and Authenticated by: Otilio Kitchen MD Patient does not have leukocytosis at this time, BNP is within normal limits at 118, initial troponin is negative, chest x-ray shows a possible early developing edema or infectious pneumonia discussed the results with patient who verbalizes understanding. She does wish at this time to be discharged home versus admitted for inpatient. She is on 4 L nasal cannula satting 94% at this time speaking in full sentences. Will give a dose of IV Rocephin and give oral doxycycline for 7 days. Also will put on a prednisone for the next 5 days. HPI General Mode of arrival: wheelchair . Date/Time Provider Initiated Documentation: 03/23/20 16:41 . Limitations to Documentation: no limitations . Information obtained by: patient . HPI Narrative: 64-year-old female presents the ER with chief complaint of increased shortness of breath. She does have a history of COPD and reports that last night she was wheezing and she took 3 nebulizers and her BiPAP and shortness of breath resolved. States that she has been coughing with yellowish productive sputum, does report chills. She is in electric wheelchair and is obese. Alert and oriented x3. She is refusing EKG at this time. She is agreeable to chest x-ray and some lab work. She denies any abdominal pain diarrhea or any other complaints denies any increased swelling in her lower extremities. She does have a history of COPD, hypercapnia, obstructive sleep apnea, PE, Related Data Home Medications Medication Instructions Recorded Confirmed ascorbic acid (vitamin C) 1,000 mg PO DAILY 11/25/12 03/23/20 Aerochamber Mini #1 inhaler 12/21/13 10/26/19 Bipap 5 l IN DIRECTED 07/23/14 03/23/20 Oxygen 2 l INTRANASAL DIRECTED 12/24/14 03/23/20 aspirin 325 mg PO DAILY #0 tab-cap 06/22/15 03/23/20 silver sulfadiazine 1 applic TOPICAL BID PRN #60 gm 12/28/17 03/23/20 triamcinolone acetonide 0.1 % 1 applic TOPICAL BID PRN #30 gm 12/22/18 03/23/20 topical cream albuterol sulfate 90 mcg/actuation 1 - 2 puff INHALATION Q6H PRN #1 02/20/19 03/23/20 aerosol inhaler inhaler clotrimazole 1 % topical cream 1 applic TOPICAL TID #30 gm 02/20/19 03/23/20 nystatin 100,000 unit/gram topical 1 applic TP BID PRN #30 gm 02/20/19 03/23/20 powder citalopram 20 mg tablet 20 mg PO DAILY tab-cap 04/27/19 03/23/20 ketotifen fumarate 0.025 % (0.035 1 drp OP BID PRN #5 ml 04/27/19 03/23/20 %) eye drops ipratropium 0.5 mg-albuterol 3 mg 3 ml IH QID #180 ml MDD 4 nebs 05/24/19 03/23/20 (2.5 mg base)/3 mL nebulization soln budesonide-formoterol HFA 160 2 puff INHALATION BID #1 inh 06/06/19 03/23/20 mcg-4.5 mcg/actuation aerosol inhaler buspirone 5 mg tablet 10 mg PO TID PRN #60 tab 06/06/19 03/23/20 potassium chloride 10 mEq 20 meq PO BID #120 tab-cap 06/06/19 03/23/20 capsule,extended release triamcinolone acetonide 0.1 % 1 applic TP BID PRN #30 gm 08/24/19 03/23/20 topical cream metformin 1,000 mg tablet 1,000 mg PO BID #180 tab 09/19/19 03/23/20 gabapentin 100 mg capsule 100 mg PO BID #180 cap 09/27/19 03/23/20 fluticasone propionate 50 1 spray NS DAILY #1 canister 10/26/19 03/23/20 mcg/actuation nasal spray,suspension furosemide 40 mg tablet 40 mg PO DAILY #90 tab 10/26/19 03/23/20 montelukast 10 mg tablet 10 mg PO DAILY #30 tab 01/29/20 03/23/20 doxycycline hyclate 100 mg PO BID 7 Days #14 tab 03/23/20 prednisone 60 mg PO DAILY 5 Days #15 tab 03/23/20 Previous Rx's Medication Instructions Recorded aspirin 325 mg PO DAILY #0 tab-cap 06/22/15 triamcinolone acetonide 0.1 % 1 applic TOPICAL BID PRN #30 gm 12/22/18 topical cream albuterol sulfate 90 mcg/actuation 1 - 2 puff INHALATION Q6H PRN #1 02/20/19 aerosol inhaler inhaler clotrimazole 1 % topical cream 1 applic TOPICAL TID #30 gm 02/20/19 nystatin 100,000 unit/gram topical 1 applic TP BID PRN #30 gm 02/20/19 powder ketotifen fumarate 0.025 % (0.035 1 drp OP BID PRN #5 ml 04/27/19 %) eye drops ipratropium 0.5 mg-albuterol 3 mg 3 ml IH QID #180 ml MDD 4 nebs 05/24/19 (2.5 mg base)/3 mL nebulization soln budesonide-formoterol HFA 160 2 puff INHALATION BID #1 inh 06/06/19 mcg-4.5 mcg/actuation aerosol inhaler buspirone 5 mg tablet 10 mg PO TID PRN #60 tab 06/06/19 potassium chloride 10 mEq 20 meq PO BID #120 tab-cap 06/06/19 capsule,extended release triamcinolone acetonide 0.1 % 1 applic TP BID PRN #30 gm 08/24/19 topical cream metformin 1,000 mg tablet 1,000 mg PO BID #180 tab 09/19/19 gabapentin 100 mg capsule 100 mg PO BID #180 cap 09/27/19 fluticasone propionate 50 1 spray NS DAILY #1 canister 10/26/19 mcg/actuation nasal spray,suspension furosemide 40 mg tablet 40 mg PO DAILY #90 tab 10/26/19 montelukast 10 mg tablet 10 mg PO DAILY #30 tab 01/29/20 doxycycline hyclate 100 mg PO BID 7 Days #14 tab 03/23/20 prednisone 60 mg PO DAILY 5 Days #15 tab 03/23/20 Allergies Allergy/AdvReac Type Severity Reaction Status Date / Time hydrocodone Allergy Severe ITCHING Verified 03/23/20 16:51 morphine Allergy Mild PRURITIS Verified 03/23/20 16:51 oxycodone Allergy Mild ITCHING Verified 03/23/20 16:51 General Stated Complaint: SOB REUBEN: 2 Review of Systems Narrative: Constitutional: Negative for weight loss, alert and oriented, disheveled, is wearing several layers of clothes and is sitting in electric wheelchair. Normal body habitus, appears comfortable. HEENT: Denies trauma, headaches, blurry vision, nasal discharge, sore throat, trouble swallowing. Chest: Denies chest pain, palpitations, irregular rhythm, hypertension. Posi tive chest pressure. Respiratory: Denies , hemoptysis. Positive shortness of breath, positive cough with yellow productive sputum. GI: Denies abdominal pain, nausea, vomiting, diarrhea, constipation. : Denies dysuria, hematuria, flank pain, rectal bleeding. Neuro: Denies dizziness, blurry vision, weakness, syncope, headache or facial numbness. Hematologic: Denies easy bruising, intolerance to heat or cold, hair loss. [facility] Medical History Allergic sinusitis (Acute) Chronic headaches (Chronic) Recent Neurology consult for possible papilledema. Chronic obstructive lung disease (Chronic) Quit smoking 2010. PFTs 09/2012 showed an FEV1 of 60% with improvement to 8 0% with bronchodilator, thought to be severe restrictive disease. 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) Grief at loss of child (Acute) Hypercapnic respiratory failure (Resolved) Hyperglycemia (Acute) Insomnia with sleep apnea (Chronic) Knee pain, bilateral (Chronic 07/23/14) s/p bilat TKR (left infected with mult surg and decreased mobility) Low back pain with sciatica (Chronic 05/03/14) [place] [facility] [place] Morbid obesity (Chronic 04/05/13) Obstructive sleep apnea syndrome (Chronic) Pulmonary embolism (Resolved) Recurrent UTI (Chronic) Right ventricular dysfunction (Chronic) Sensorineural hearing loss, bilateral (Chronic 08/29/13) Urinary incontinence (Chronic) On Detrol Varicose veins of lower extremity (Chronic) Wrist pain, right (Acute) Surgical History Fasciotomy, Foot (~1996) LEFT History of Surgical Procedure (Chronic) a. Right and left toal knee replacements. b. Left knee has been repeatedly operated on with slava surgies, three replacements. Replacement of total knee joint Bilateral; left-became [id number] surgeries Family History Mother Diabetes Personal history of malignant neoplasm LUNG Father Personal history of malignant neoplasm BRAIN Grandfather No problems noted. Grandfather No problems noted. Grandmother No problems noted. Grandmother No problems noted. Social History Smoking/Tobacco Use Status: Former Tobacco Use Alcohol Intake: never Drug use: Never Current gender identity: female Do you feel safe at home: Yes Do you feel safe in your relationship?: Yes Exam Narrative Exam Narrative: Constitutional: Alert and oriented x3. Appears stated age. Morbidly obese body habitus. Sitting in a electric wheelchair. Head: Normocephalic, no trauma. Eyes: Pupils PERRLA, Red reflex noted, EOM's intact. Eyelids symmetrical without lesions, discharge, or swelling. ENT: Bilateral TM's WNL, External ear normal to inspection, no mastoid TTP, swelling, or erythema, Nasal turbinates WNL, no nasal discharge. Normal dentition, Posterior pharynx WNL, no exudate. Chest: RRR, Normal S1, S2, distal pulses intact. Resp: Lungs clear to auscultation bilaterally, no wheezes, rales, or rhonchi. Diminished bilaterally. Musculoskeletal: Unable to assess gait, wheelchair-bound, Skin: No suspicious rashes or lesions. Capillary refill less than 2 sec. very swollen lower extremities, 3+ nonpitting edema noted. Appears chronic. Neurologic: Cranial nerves II-XII intact. Alert and oriented x 3. DTR's intact. Hematologic/Lymphatic: No ecchymosis, no lymphadenopathy. Course Vital Signs Vital signs: Vital Signs Temperature 36.9 C 03/23/20 16:45 Pulse 86 03/23/20 16:45 Respiratory Rate 24 03/23/20 16:45 Blood Pressure 149/71 H 03/23/20 16:45 Pulse Oximetry 95 03/23/20 16:45 Temperature 36.9 C 03/23/20 16:45 Temperature Source Skin 03/23/20 16:45 Pulse 86 03/23/20 16:45 Respiratory Rate 24 03/23/20 16:45 Respiratory Effort Labored 03/23/20 16:45 Blood Pressure 149/71 H 03/23/20 16:45 Blood Pressure Position Sitting 03/23/20 16:45 Pulse Oximetry 95 03/23/20 16:45 Oxygen Delivery Method Room Air 03/23/20 16:45 Oxygen Flow Rate 0 03/23/20 16:45 Pain Level 6 03/23/20 16:45
[2020-03-23] MEDS: methylPREDNISolone SUCC 125 MG VIAL IVP (17:00)
[2020-03-23 17:08] LABS: Abs Immature Grans 0.02 10^3/uL (0.0-0.06); Absolute Basophil Count 0.04 10^3/uL (0.0-0.2); Absolute Eosinophil Count 0.31 10^3/uL (0.0-0.7); Absolute Lymphocyte Count 2.08 10^3/uL (1.2-3.4); Absolute Monocyte Count 0.78 10^3/uL (0.1-0.8); Basophils % 0.5; Eosinophils % 3.6; HCT 41.3 % (36.0-46.0); HGB 13.8 g/dL (11.2-15.7); Immature Grans % 0.2; Lymphocytes % 24.1; MCH 28.6 pg (27.0-33.0); MCHC 33.4 % (32.0-36.0); MCV 85.5 fL (80-95); MPV 10.7 fL (8.0-11.0); Neutrophils % 62.6; Nucleated RBC 0 %; Platelet Count 267 10^3/uL (130-400); RBC 4.83 10^6/uL (3.93-5.22); RDW 13.6 % (11.7-14.6); RDW-SD 42.7 fL; WBC 8.63 10^3/uL (4.4-10.8)
--- NOTE | 2020-03-23 17:10 | DI.RAD_ITS ---
EXAM: XR PORTABLE CHEST AP CLINICAL HISTORY: SOB, Hx copd TECHNIQUE: 2D digital imaging was performed. COMPARISON: CR,XR XR PORTABLE CHEST AP from 05/25/2019 FINDINGS: MEDIASTINUM: Normal. HEART: Normal. PULMONARY VASCULATURE: Normal. LUNGS: The left lung base is not well visualize and an infiltrate cannot be excluded. Stable diffuse interstitial prominence. PLEURAL SPACE: No pleural effusion or pneumothorax. BONE:Within normal limits for the patient's age. OTHER FINDINGS:Normal. IMPRESSION: Possible left basilar infiltrate. Please correlate clinically. DATA REPOSITORY: RADIATION DOSE DELIVERED:
[2020-03-23 17:26] LABS: ALT 31 U/L (14-59); AST 20 U/L (15-37); Alkaline Phosphatase 83 U/L (46-116); Anion Gap 5.9 mmol/L (3-11); BUN 16 mg/dL (7-18); Bilirubin, Total 1.1 mg/dL (0.2-1.0); CO2 27.1 mmol/L (21.0-32.0); CREATININE 0.73 mg/dL (0.55-1.02); Calcium 8.6 mg/dL (8.5-10.1); Chloride 105 mmol/L (98-107); Glucose 120 mg/dL (74-106); Magnesium 1.9 mg/dL (1.8-2.4); Potassium 3.7 mmol/L (3.5-5.1); Sodium 138 mmol/L (136-145)
[2020-03-23 17:28] LABS: Troponin I < 0.05 ng/mL (<0.06)
--- NOTE | 2020-03-23 17:29 | NUR.NOTE ---
Nursing Note: Pt refuses ambulance paramedic and regular BP measurements. Consents for Bipap and ABG. Provider aware. Remains in private wheelchair, consented to change into bariatric hospital gown.
[2020-03-23 17:30] LABS: NT-proBNP 118 pg/mL (<300)
[2020-03-23 17:33] VITALS: RESP 19; RESP 20; O2SAT 97
[2020-03-23 18:04] LABS: HCO3 23 mmol/L (22-26); pCO2 30 mmHg (35-45); pO2 118 mmHg (80-105); sO2 99 % (95-98); tCO2 20 mmol/L (23-27)
[2020-03-23 18:06] LABS: FIO2L 30 L; Site Right Radial
--- NOTE | 2020-03-23 18:11 | DI.VRAD_ITS ---
PROCEDURE INFORMATION: Exam: XR Chest, 1 View Exam date and time: 03/23/2020 5:46 PM Age: 64 years old Clinical indication: Other: SOB, HX copd TECHNIQUE: Imaging protocol: XR of the chest Views: 1 view. COMPARISON: CR XR PORTABLE CHEST AP 05/25/2019 4:22 PM FINDINGS: Lungs: Haziness in the left lung base. Mild diffuse interstitial prominence and bilateral perihilar haziness. Pleural space: Unremarkable. No pleural effusion. No pneumothorax. Heart/Mediastinum: Cardiomediastinal silhouette is magnified due to technique. Vasculature: Calcified aortic knob. Bones/joints: No acute abnormality or aggressive osseous lesion. IMPRESSION: Findings are concerning for bilateral early/developing acute interstitial and probable left basal airspace disease in which pulmonary edema or developing infectious pneumonia should be entertained. Dictated and Authenticated by: Otilio Rg MD. Ordering:IDA Puente MD
[2020-03-23 18:12] VITALS: O2SAT 96
[2020-03-23 18:31] VITALS: RESP 20
[2020-03-23] MEDS: cefTRIAXone 1 GM/50 ML BAG IVPB (18:40)
[2020-03-23] MEDS: Doxycycline Hyclate 100 MG CAP PO (18:40)
[2020-03-23] MEDS: Doxycycline Hyclate 100 MG, 2 CAPS/BTL PO (19:04)
[2020-03-23 19:15] VITALS: BP 135/60; PULSE 80; RESP 20; TEMP 36.9; O2SAT 95
[2020-03-25 14:53] LABS: COVID-19 RT-PCR Result NEGATIVE (Negative)
== END 2020-03-23 19:30 | disposition home or self-care (01) ==
PROVIDERS: Emergency Provider Registered Nurse Emergency; PCP Family Medicine
DX: J44.0 Chronic obstructive pulmonary disease with (acute) lower respiratory infection (principal); J18.9 Pneumonia, unspecified organism; J44.1 Chronic obstructive pulmonary disease with (acute) exacerbation; Z03.818 Encounter for observation for suspected exposure to other biological agents ruled out; G47.33 Obstructive sleep apnea (adult) (pediatric); Z86.711 Personal history of pulmonary embolism; Z87.891 Personal history of nicotine dependence
CPT/HCPCS: 36415; 80053; 82805; 96365; 96375; 99285; U0003; 36600; 71045; 83735; 83880; 84484; 85025; J0696; J2930

== ENCOUNTER 2020-07-08 12:07 | Emergency (ER) | payer OTHER, SELFPAY ==
[2020-07-08] VITALS (46 sets, daily range): BP systolic 67–165; BP diastolic 34–89; PULSE 50–98; RESP 0–32; TEMP 36.8–37.2; O2SAT 51–100
--- NOTE | 2020-07-08 12:00 | RT.EKG_ITS ---
APPROVED REPORT Exam: Resting ECG Patient Location: E HR:87 bpm ECG Measurements Heart Rate 87 AXIS SD [id number] P [id number] QRSd 101 QRS 48 QT 392 T -35 QTc 472 Conclusion Atrial flutter...A-rate [address] depression, anterolateral leads...ST <-0.07mV, I aVL V2-V6 Abnormal T, consider ischemia, diffuse leads...T <-0.20mV, ant/lat/inf ST elevation, consider inferior injury...ST >0.08mV, II III aVF. Questionable ST elevation in II, III. Less than 1mm ST depression in aVF and V3. I have reviewed and interpreted ECG and agree with software generated interpretation.
[2020-07-08] MEDS: Albuterol/Ipratropium 3 ML UPD VIAL (12:20)
[2020-07-08] MEDS: Albuterol 2.5 MG/3 ML INH SOLN VIAL (12:20)
--- NOTE | 2020-07-08 12:25 | W.ED.GENAD ---
Discharge Plan Disposition Patient Disposition: HOME Condition: Improving Discharge Details Clinical Impression: COPD exacerbation Primary Care Provider: Alphonso Murphy ED Provider: Rosa Arellano Home Meds and New Rx's Prescriptions: New prednisone 50 mg tablet 50 mg PO DAILY Qty: 4 RF: 0 azithromycin 250 mg tablet 250 mg PO DAILY 4 Days Qty: 4 RF: 0 Continued triamcinolone acetonide 0.1 % cream 1 applic Topical BID PRN (Reason: rash on legs) Qty: 30 RF: 2 furosemide 40 mg tablet 40 mg PO DAILY Qty: 90 RF: 3 fluticasone propionate [Flonase Allergy Relief] 50 mcg/actuation spray,suspension 1 spray NS DAILY Qty: 1 RF: 8 triamcinolone acetonide 0.1 % cream 1 applic TP BID PRN (Reason: neck/chest rash) Qty: 30 RF: 0 clotrimazole 1 % cream 1 applic topical TID Qty: 30 RF: 2 nystatin 100,000 unit/gram powder 1 applic TP BID PRN (Reason: intertrigo) Qty: 30 RF: 5 ketotifen fumarate [Zaditor] 0.025 % (0.035 %) drops 1 drp OP BID PRN (Reason: allergy symptoms) Qty: 5 RF: 2 ascorbic acid (vitamin C) 1,000 MG tablet 1,000 mg PO DAILY RF: 0 (DME) Aerochamber Mini 1 EACH spacer 1 ea Inhalation PRN Qty: 1 RF: 0 BiPAP Inhalation Gas 5 l IN DIRECTED RF: 0 oxygen Inhalation 2 l Intranasal DIRECTED RF: 0 silver sulfadiazine 20 GM cream 1 applic Topical BID PRNQty: 60 RF: 2 metformin 1,000 mg tablet 1,000 mg PO BID Qty: 180 RF: 3 gabapentin 100 mg capsule 100 mg PO BID Qty: 180 RF: 3 montelukast [Singulair] 10 mg tablet 10 mg PO DAILY Qty: 30 RF: 11 albuterol sulfate [ProAir HFA] 90 mcg/actuation HFA aerosol inhaler 1 - 2 puff Inhalation Q6H PRN Qty: 1 RF: 11 budesonide-formoterol [Symbicort] 160-4.5 mcg/actuation HFA aerosol inhaler 2 puff Inhalation BID Qty: 1 RF: 11 buspirone 5 mg tablet 10 mg PO TID PRN (Reason: anxiety) Qty: 60 RF: 11 citalopram [Celexa] 20 mg tablet 20 mg PO DAILY Qty: 90 RF: 3 ipratropium-albuterol 0.5 mg-3 mg(2.5 mg base)/3 mL solution for nebulization 3 ml IH QID MDD 4 nebs Qty: 180 RF: 3 potassium chloride 10 mEq capsule, extended release 20 meq PO BID Qty: 360 RF: 3 aspirin 325 MG tablet 325 mg PO DAILY Qty: 0 RF: 0 Discharge Instructions Instructions: COPD (Chronic Obstructive Pulmonary Disease) (ED) Additional Instructions: Please continue with your respiratory regime including inhalers, nasal cannula and BiPAP as previously advised by respiratory therapy as well as your primary care. You are given 1 dose of steroids and antibiotics today. Please continue with the regimen as prescribed and next 4 days. Please call your primary care tomorrow to schedule appointment in the next 2 days for reevaluation. If you develop chest pain, increased shortness of breath, difficulty breathing or other new/worsening symptoms please seek care urgently once again. Covid testing is pending. Please quarantine until your results are back. We will call you with the results. Stand Alone Forms: PENDING COVID-19 TESTING Referrals: Alphonso Murphy. [Primary Care Provider] - Medical Decision Making <INESSA Albert - Last Filed: 07/08/20 15:50> This is a 65-year-old female with significantly complicated past medical history. She presents in mild respiratory distress, hypotensive, tachypnea, O2 sats in the high 80s. Patient refused BiPAP but was willing to go up to 5 L nasal cannula. Will immediately obtain IV access, septic work-up, give IV fluids, and obtain CTA of her chest for her hypoxia, tachypnea, morbid obesity and sedentary lifestyle. I did immediately discussed the case with Dr. Funes. I also asked that her blood pressure be rechecked and her cuff changed as her body habitus does make it difficult for accurate blood pressure readings. Respiratory also at bedside to evaluate patient. Will request ABG as well. After blood pressure cuff was changed and location altered, blood pressure did appear to be normotensive. She received 2 albuterol and a single DuoNeb immediately as well as 125 IV Solu-Medrol. Initial laboratory values are surprisingly unremarkable. White blood cell count of 10.2 no evidence of anemia, platelet count 264. INR 1.0 ABG shows HCO3 27 otherwise unremarkable, potassium 3.4, sodium 138, GFR greater than 60 with a creatinine of 0.76. Glucose 95, calcium 8.6 magnesium 1.9, troponin less than 0.05 BNP 68, procalcitonin less than 0.1. Lactate of 1.3. Urine reveals trace leukoesterase many epithelials, contamination. Covid pending EKG obtained at 1259, please see official report by Dr. Funes. Appears to be sinus rhythm, nonspecific ST-T wave abnormality. Poor quality. Requesting a repeat EKG after the neb is completed. Repeat EKG at 1352, please see official report by Dr. Funes. Sinus rhythm, ventricular rate of 90. No STEMI. IV access had been obtained but when [facility] her IV was lost. At that time she became more short of breath and requested that her BiPAP be placed. She was using her home BiPAP. Reports feeling significantly better. Ample time was then spent with IV access attempted using ultrasound, unsuccessfully. Patient is no longer allowing access attempts. We discussed options, she is willing to allow anesthesia to come down and try. Please note that this obviously delayed CTA and disposition of the patient. Upon reevaluation she was moving more air after the neb treatments but still had some expiratory wheezing scattered throughout. Patient signed out to INESSA Arellano. At that time of signout anesthesia is in exam room 6 attempting to establish IV access so we may obtain a CTA. Medical Records Medical records reviewed: Yes I reviewed the patient's medical records. Lab Data Lab results reviewed: Yes I reviewed the patient's lab results. Lab results narrative: 07/08/20 11:35 Blood Blood Culture - Pending 07/08/20 12:37 Blood Blood Culture - Pending Laboratory Tests Range/Units 07/08/20 07/08/20 07/08/20 12:35 12:35 12:35 WBC (4.4-10.8) 10^3/uL 10.20 RBC (3.93-5.22) 10^6/uL 4.72 Hgb (11.2-15.7) g/dL 13.7 Hct (36.0-46.0) % 41.9 MCV (80-95) fL 88.8 MCH (27.0-33.0) pg 29.0 MCHC (32.0-36.0) % 32.7 RDW (11.7-14.6) % 13.4 Plt Count (130-400) 10^3/uL 264 MPV (8.0-11.0) fL 10.4 Immature Gran % 0.3 Neutrophils % 65.3 Lymphocytes % 23.3 Monocytes % 8.3 Eosinophils % 2.5 Basophils % 0.3 Nucleated RBC % % 0 Absolute Neutrophils (1.2-6.7) 10^3/uL 6.65 Absolute Lymphocytes (1.2-3.4) 10^3/uL 2.38 Absolute Monocytes (0.1-0.8) 10^3/uL 0.85 H Absolute Eosinophils (0.0-0.7) 10^3/uL 0.26 Absolute Basophils (0.0-0.2) 10^3/uL 0.03 PT (9.3-11.0) sec INR (0.9-1.1) APTT (21.0-27.5) sec ABG Sample Site ABG pH (7.35-7.45) ABG pCO2 (35-45) mmHg ABG pO2 (80-105) mmHg ABG HCO3 (22-26) mmol/L ABG Total CO2 (23-27) mmol/L ABG O2 Saturation (95-98) % ABG Base Excess (-2-3) mmol/L VBG Lactate (0.6-1.4) mmol/L 1.3 Sodium (136-145) mmol/L 138 Potassium (3.5-5.1) mmol/L 3.4 L Chloride (98-107) mmol/L 104 Carbon Dioxide (21.0-32.0) mmol/L 29.1 Anion Gap (3-11) mmol/L 4.9 BUN (7-18) mg/dL 14 Creatinine (0.55-1.02) mg/dL 0.76 Estimated GFR/1.73 m2 (mL/min/1.73m2) >= 60.00 Glucose (74-106) mg/dL 95 Calcium (8.5-10.1) mg/dL 8.6 Magnesium (1.8-2.4) mg/dL 1.9 Total Bilirubin (0.2-1.0) mg/dL 1.7 H AST (15-37) U/L 21 ALT (14-59) U/L 26 Alkaline Phosphatase (46-116) U/L 87 Troponin I (<0.06) ng/mL < 0.05 NT-Pro-B Natriuret Pep (<300) pg/mL 68 Total Protein (6.4-8.2) g/dL 7.3 Albumin (3.4-5.0) g/dL 3.0 L Procalcitonin ng/mL < 0.1 Urine Color (Yellow) Urine Clarity (Clear) Urine pH (5-8) Ur Specific [place] (1.005-1.025) Urine Protein (Negative) mg/dL Urine Ketones (Negative) mg/dL Urine Blood (Negative) Urine Nitrite (Negative) Urine Bilirubin (Negative) Urine Urobilinogen (Up TO 0.2) EU/dL Ur Leukocyte Esterase (Negative) Urine RBC (0-2) HPF Urine WBC (0-5) HPF Ur Epithelial Cells (Negative) HPF Urine Crystals (Negative) HPF Urine Bacteria (Negative) HPF Urine Casts (Negative) LPF Urine Mucus (Negative) Ur Culture Indicated? Urine Glucose (Negative) mg/dL Range/Units 07/08/20 07/08/20 07/08/20 12:35 12:45 13:25 WBC (4.4-10.8) 10^3/uL RBC (3.93-5.22) 10^6/uL Hgb (11.2-15.7) g/dL Hct (36.0-46.0) % MCV (80-95) fL MCH (27.0-33.0) pg MCHC (32.0-36.0) % RDW (11.7-14.6) % Plt Count (130-400) 10^3/uL MPV (8.0-11.0) fL Immature Gran % Neutrophils % Lymphocytes % Monocytes % Eosinophils % Basophils % Nucleated RBC % % Absolute Neutrophils (1.2-6.7) 10^3/uL Absolute Lymphocytes (1.2-3.4) 10^3/uL Absolute Monocytes (0.1-0.8) 10^3/uL Absolute Eosinophils (0.0-0.7) 10^3/uL Absolute Basophils (0.0-0.2) 10^3/uL PT (9.3-11.0) sec 10.1 INR (0.9-1.1) 1.0 APTT (21.0-27.5) sec 25.4 ABG Sample Site Right radial ABG pH (7.35-7.45) 7.38 ABG pCO2 (35-45) mmHg 45 ABG pO2 (80-105) mmHg 104 ABG HCO3 (22-26) mmol/L 27 H ABG Total CO2 (23-27) mmol/L 24 ABG O2 Saturation (95-98) % 98 ABG Base Excess (-2-3) mmol/L 2 VBG Lactate (0.6-1.4) mmol/L Sodium (136-145) mmol/L Potassium (3.5-5.1) mmol/L Chloride (98-107) mmol/L Carbon Dioxide (21.0-32.0) mmol/L Anion Gap (3-11) mmol/L BUN (7-18) mg/dL Creatinine (0.55-1.02) mg/dL Estimated GFR/1.73 m2 (mL/min/1.73m2) Glucose (74-106) mg/dL Calcium (8.5-10.1) mg/dL Magnesium (1.8-2.4) mg/dL Total Bilirubin (0.2-1.0) mg/dL AST (15-37) U/L ALT (14-59) U/L Alkaline Phosphatase (46-116) U/L Troponin I (<0.06) ng/mL NT-Pro-B Natriuret Pep (<300) pg/mL Total Protein (6.4-8.2) g/dL Albumin (3.4-5.0) g/dL Procalcitonin ng/mL Urine Color (Yellow) Yellow Urine Clarity (Clear) Sl cloudy Urine pH (5-8) 6.0 Ur Specific [place] (1.005-1.025) 1.015 Urine Protein (Negative) mg/dL Negative Urine Ketones (Negative) mg/dL Negative Urine Blood (Negative) Negative Urine Nitrite (Negative) Negative Urine Bilirubin (Negative) Negative Urine Urobilinogen (Up TO 0.2) EU/dL 0.2 Ur Leukocyte Esterase (Negative) Trace H Urine RBC (0-2) HPF Negative Urine WBC (0-5) HPF 5-10 Ur Epithelial Cells (Negative) HPF Many Urine Crystals (Negative) HPF Negative Urine Bacteria (Negative) HPF Few Urine Casts (Negative) LPF Negative Urine Mucus (Negative) Negative Ur Culture Indicated? No/sq. contamination Urine Glucose (Negative) mg/dL Negative <INESSA Ngo - Last Filed: 07/08/20 18:01> Care transtioned to myself from Vamsi Shaikh PA-C. Please see his not for history, presentation and exam. Care transitioned with imaging pending. CTA reviewed by radiologist: FINDINGS: Pulmonary arteries: Normal. No pulmonary emboli. Aorta: Unremarkable. No aortic aneurysm. No aortic dissection. Thyroid: Thyroid enlargement with bilateral nodules. Consider follow-up sonography. Lungs: Mild bibasilar atelectasis. Pleural space: There are small bilateral pleural effusions with mild bibasilar atelectasis. Heart: Cardiomegaly. Lymph nodes: There is mild hilar and mediastinal adenopathy. Bones/joints: Moderate thoracic spondylosis. Soft tissues: Unremarkable. Other findings: Respiratory motion noted. IMPRESSION: 1. No evidence for pulmonary embolus. 2. Minimal bilateral pleural effusions with atelectasis. 3. Mild hilar and mediastinal adenopathy. 4. Probable multinodular goiter. Reevaluated patient. She is on BiPAP but breathing comfortably. She states that the oxygen is on the BiPAP settings are baseline for her and that she typically wears it throughout the course the day. She feels much improved and is requesting discharge home. I did discuss inpatient admission based on her initial presentation and concern for respiratory distress. However, she feels that she is much improved from at her baseline and is able to return if she develops any new or worsening symptoms. She will contact her primary care tomorrow. She does state that her primary returns to pulmonology and that there is a plan for her to be referred to pulmonology in the future. I did advise that her Covid testing is pending and she will continue to quarantine. Strict return precautions were discussed. We will start her on azithromycin as well as continue her on her daily steroid dosing. All of her questions and concerns were addressed and she is agreement this plan. As discussed the findings of potential goiter on the patient's CT and she will discuss this further with her primary care. HPI <INESSA Albert - Last Filed: 07/08/20 15:50> General Mode of arrival: wheelchair. Date/Time Provider Initiated Documentation: 07/08/20 12:12. Limitations to Documentation: no limitations. Information obtained by: patient. HPI Narrative: This is a 65-year-old female with complicated past medical history that includes chronic headaches, COPD, depression, diabetes, morbid obesity, PE, right ventricle dysfunction, former smoker, O2 dependent on 3 L nasal cannula during the day, 5 L via her home BiPAP machine at bedtime. She presents today reporting productive yellow sputum, cough, increasing shortness of breath over the past 24 hours. She reports that she felt warm but had no true documented fever. Reports mild global headache, worse when coughing. Denies neck pain, chest pain, abdominal pain, nausea, vomiting, change in bowel or bladder function, numbness, tingling, weakness. Patient is focal regarding her care, she does not want to wear her BiPAP at the moment, she will not allow us to obtain IV access in a crease, but otherwise verbalizes that she wants to feel better and will allow us to do whatever else we need to do. She states that she is a full code. Has been taking all of her medications as directed Related Data Home Medications Medication Instructions Recorded Confirmed ascorbic acid (vitamin C) 1,000 mg PO DAILY 11/25/12 07/08/20 Aerochamber Mini #1 inhaler 12/21/13 07/08/20 Bipap 5 l IN DIRECTED 07/23/14 07/08/20 Oxygen 2 l INTRANASAL DIRECTED 12/24/14 07/08/20 aspirin 325 mg PO DAILY #0 tab-cap 06/22/15 07/08/20 silver sulfadiazine 1 applic TOPICAL BID PRN #60 gm 12/28/17 07/08/20 triamcinolone acetonide 0.1 % 1 applic TOPICAL BID PRN #30 gm 12/22/18 07/08/20 topical cream clotrimazole 1 % topical cream 1 applic TOPICAL TID #30 gm 02/20/19 07/08/20 nystatin 100,000 unit/gram topical 1 applic TP BID PRN #30 gm 02/20/19 07/08/20 powder ketotifen fumarate 0.025 % (0.035 1 drp OP BID PRN #5 ml 04/27/19 07/08/20 %) eye drops triamcinolone acetonide 0.1 % 1 applic TP BID PRN #30 gm 08/24/19 07/08/20 topical cream metformin 1,000 mg tablet 1,000 mg PO BID #180 tab 09/19/19 07/08/20 gabapentin 100 mg capsule 100 mg PO BID #180 cap 09/27/19 07/08/20 fluticasone propionate 50 1 spray NS DAILY #1 canister 10/26/19 07/08/20 mcg/actuation nasal spray,suspension furosemide 40 mg tablet 40 mg PO DAILY #90 tab 10/26/19 07/08/20 montelukast 10 mg tablet 10 mg PO DAILY #30 tab 01/29/20 07/08/20 albuterol sulfate 90 mcg/actuation 1 - 2 puff INHALATION Q6H PRN #1 06/06/20 07/08/20 aerosol inhaler inhaler budesonide-formoterol HFA 160 2 puff INHALATION BID #1 inh 06/06/20 07/08/20 mcg-4.5 mcg/actuation aerosol inhaler buspirone 5 mg tablet 10 mg PO TID PRN #60 tab 06/06/20 07/08/20 citalopram 20 mg tablet 20 mg PO DAILY #90 tab-cap 06/06/20 07/08/20 ipratropium 0.5 mg-albuterol 3 mg 3 ml IH QID #180 ml MDD 4 nebs 06/06/20 07/08/20 (2.5 mg base)/3 mL nebulization soln potassium chloride 10 mEq 20 meq PO BID #360 tab-cap 06/06/20 07/08/20 capsule,extended release azithromycin 250 mg PO DAILY 4 Days #4 tab 07/08/20 prednisone 50 mg PO DAILY #4 tab 07/08/20 Previous Rx's Medication Instructions Recorded aspirin 325 mg PO DAILY #0 tab-cap 06/22/15 triamcinolone acetonide 0.1 % 1 applic TOPICAL BID PRN #30 gm 12/22/18 topical cream clotrimazole 1 % topical cream 1 applic TOPICAL TID #30 gm 02/20/19 nystatin 100,000 unit/gram topical 1 applic TP BID PRN #30 gm 02/20/19 powder ketotifen fumarate 0.025 % (0.035 1 drp OP BID PRN #5 ml 04/27/19 %) eye drops triamcinolone acetonide 0.1 % 1 applic TP BID PRN #30 gm 08/24/19 topical cream metformin 1,000 mg tablet 1,000 mg PO BID #180 tab 09/19/19 gabapentin 100 mg capsule 100 mg PO BID #180 cap 09/27/19 fluticasone propionate 50 1 spray NS DAILY #1 canister 10/26/19 mcg/actuation nasal spray,suspension furosemide 40 mg tablet 40 mg PO DAILY #90 tab 10/26/19 montelukast 10 mg tablet 10 mg PO DAILY #30 tab 01/29/20 albuterol sulfate 90 mcg/actuation 1 - 2 puff INHALATION Q6H PRN #1 06/06/20 aerosol inhaler inhaler budesonide-formoterol HFA 160 2 puff INHALATION BID #1 inh 06/06/20 mcg-4.5 mcg/actuation aerosol inhaler buspirone 5 mg tablet 10 mg PO TID PRN #60 tab 06/06/20 citalopram 20 mg tablet 20 mg PO DAILY #90 tab-cap 06/06/20 ipratropium 0.5 mg-albuterol 3 mg 3 ml IH QID #180 ml MDD 4 nebs 06/06/20 (2.5 mg base)/3 mL nebulization soln potassium chloride 10 mEq 20 meq PO BID #360 tab-cap 06/06/20 capsule,extended release azithromycin 250 mg PO DAILY 4 Days #4 tab 07/08/20 prednisone 50 mg PO DAILY #4 tab 07/08/20 Allergies Allergy/AdvReac Type Severity Reaction Status Date / Time hydrocodone Allergy Severe ITCHING Verified 07/08/20 12:23 morphine Allergy Mild PRURITIS Verified 07/08/20 12:23 oxycodone Allergy Mild ITCHING Verified 07/08/20 12:23 General Stated Complaint: SOB REUBEN: 2 Review of Systems <INESSA Albert - Last Filed: 07/08/20 15:50> Constitutional Constitutional: Denies chills, Denies fatigue, Reports fever(s) ([place] warm), Reports headache(s) and Reports weakness (General) Eyes Eyes: Denies change in vision ENT Ears, Nose, Mouth, and Throat: Denies dizziness, Reports headache(s) and Denies sore throat Cardiovascular Cardiovascular: Denies chest pain and Reports dyspnea Respiratory Respiratory: Reports cough, Reports dyspnea and Reports wheezing Gastrointestinal Gastrointestinal: Denies abdominal pain, Denies diarrhea, Denies nausea and Denies vomiting Genitourinary Genitourinary: Denies difficulty voiding Musculoskeletal Musculoskeletal: Denies back pain, Denies myalgias, Denies numbness and Denies tingling Integumentary/Breasts Skin/Breast: Denies rash Neurologic Neurologic: Denies dizziness, Reports headache(s), Denies numbness, Denies tingling and Reports weakness (General) Endocrine Endocrine: Denies fatigue Allergic/Immunologic Allergic/Immunologic: Reports wheezing PFSH <INESSA Albert - Last Filed: 07/08/20 15:50> Medical History (Updated 07/08/20 @ 17:52 by INESSA Ngo) Allergic sinusitis Chronic headaches Recent Neurology consult for possible papilledema. Chronic obstructive lung disease Quit smoking 2010. PFTs 09/2012 showed an FEV1 of 60% with improvement to 80% with bronchodilator, thought to be severe restrictive disease. Depressive disorder Goiter, nontoxic, multinodular (05/03/14) Grief at loss of child Hypercapnic respiratory failure Hyperglycemia Insomnia with sleep apnea Knee pain, bilateral (07/23/14) s/p bilat TKR (left infected with mult surg and decreased mobility) Low back pain with sciatica (05/03/14) CT at [facility] [place] [facility] L34 spinal stenosis Morbid obesity (04/05/13) Obstructive sleep apnea syndrome Pulmonary embolism Recurrent UTI Right ventricular dysfunction Sensorineural hearing loss, bilateral (08/29/13) Urinary incontinence On Detrol Varicose veins of lower extremity Wrist pain, right Surgical History Fasciotomy, Foot (~1996) LEFT History of Surgical Procedure a. Right and left toal knee replacements. b. Left knee has been repeatedly operated on with slava surgies, three replacements. Replacement of total knee joint Bilateral; left-became [id number]-[id number] surgeries Family History Mother Diabetes Personal history of malignant neoplasm LUNG Father Personal history of malignant neoplasm BRAIN Grandfather No problems noted. Grandfather No problems noted. Grandmother No problems noted. Grandmother No problems noted. Social History Smoking/Tobacco Use Status: Former Tobacco Use Smoking risk assessment performed?: Yes Alcohol Intake: never Drug use: Never Current gender identity: female Do you feel safe at home: Yes Do you feel safe in your relationship?: Yes Exam <INESSA Albert - Last Filed: 07/08/20 15:50> Const General: cooperative and in distress Orientation: alert and awake HENMT Head: normal to inspection, normocephalic and atraumatic Face and sinus: normal facial exam Mouth: moist mucous membranes Throat: posterior oropharynx normal Eyes General: appearance normal, both eyes and all related structures Conjunctivae: conjunctivae normal Sclera: sclerae normal Neck Neck: normal visual inspection, full ROM, no meningeal signs, trachea midline, supple and nontender Resp Effort & Inspection: cough Quality of cough: productive, labored, respiratory distress (Mild) and tachypneic Auscultation: rhonchi (Scattered bilateral bases) and wheezes (Diffuse) Cardio Rate: regular rate Rhythm: regular rhythm GI Inspection: obesity Palpation: soft and nontender Auscultation: normal bowel sounds Back/Spine/Pelvis Back: No back tenderness Skin General skin exam: no rashes or lesions noted Neuro General: patient alert, patient awake, moves all extremities and no focal motor deficits Cognition: normal cognition Speech: speech normal Motor: muscle tone normal throughout Sensory Exam: no sensory deficits noted Extrem General: full ROM, capillary refill normal, no calf tenderness and pedal edema bilaterally 3+ (Baseline per Pt) Psych Appearance: grossly normal Mental Status: mental status grossly normal Course <INESSA Albert - Last Filed: 07/08/20 15:50> Vital Signs Vital signs: Vital Signs Temperature 36.8 C 07/08/20 12:12 Pulse 90 07/08/20 12:12 Respiratory Rate 30 H 07/08/20 12:12 Blood Pressure 86/67 L 07/08/20 12:12 Pulse Oximetry 94 07/08/20 12:12 Temperature 36.8 C 07/08/20 12:12 Temperature Source Temporal Artery Scan 07/08/20 12:12 Pulse 90 07/08/20 12:12 Respiratory Rate 30 H 07/08/20 12:12 Respiratory Effort Accessory Muscle Use 07/08/20 12:21 Blood Pressure 86/67 L 07/08/20 12:12 Blood Pressure Position Sitting 07/08/20 12:12 Pulse Oximetry 94 07/08/20 12:12 Oxygen Delivery Method Nasal Cannula 07/08/20 12:12 Oxygen Flow Rate 5 07/08/20 12:12 Pain Level 6 07/08/20 12:12 Sign Out <INESSA Albert - Last Filed: 07/08/20 15:50> Sign Out Data: Sign Out Comment: Pending anesthesia obtaining IV access, CTA, final disposition. Last updated by Vamsi Shaikh PA at 07/08/20 15:57
[2020-07-08 12:42] LABS: Lactate 1.3 mmol/L (0.6-1.4)
[2020-07-08 12:45] LABS: Abs Immature Grans 0.03 10^3/uL (0.0-0.06); Absolute Basophil Count 0.03 10^3/uL (0.0-0.2); Absolute Eosinophil Count 0.26 10^3/uL (0.0-0.7); Absolute Lymphocyte Count 2.38 10^3/uL (1.2-3.4); Absolute Monocyte Count 0.85 10^3/uL (0.1-0.8); Absolute Neutrophil Count 6.65 10^3/uL (1.2-6.7); Basophils % 0.3; Eosinophils % 2.5; HCT 41.9 % (36.0-46.0); HGB 13.7 g/dL (11.2-15.7); Immature Grans % 0.3; Lymphocytes % 23.3; MCHC 32.7 % (32.0-36.0); MCV 88.8 fL (80-95); MPV 10.4 fL (8.0-11.0); Monocytes % 8.3; Neutrophils % 65.3; Nucleated RBC 0 %; Platelet Count 264 10^3/uL (130-400); RBC 4.72 10^6/uL (3.93-5.22); RDW 13.4 % (11.7-14.6)
--- NOTE | 2020-07-08 12:45 | DI.CT_ITS ---
EXAM: CT CHEST PE CTA CLINICAL HISTORY: sob/hx of pe. TECHNIQUE: Imaging Protocol: Axial CT angiography was performed with multi-slice acquisition and mu lti-planar and/or 3D reconstructions. CONTRAST MATERIAL: Intravenous: Omnipaque 350 Contrast volume:structured data in ml COMPARISON: CT CT CHEST PE CTA from 11/29/2018 FINDINGS: CT angiography of the chest was performed with intravenous infusion of 100 cc of Omnipaque 350. There is a poor inspiration. There appear to be bilateral basilar areas of atelectasis minimal bilat eral pleural effusions. Tracheobronchial tree appears intact. Note is made of thyromegaly, thyroid is poorly visualized, correlation with thyroid ultrasound should be considered. No evidence of pulmonary embolic disease. Thoracic aorta is of normal diameter, no thoracic aortic an eurysm or dissection, major branch vessels appear intact. No mediastinal or hilar adenopathy. Images obtained through the upper abdomen show unremarkable appearance of the visualized portions of the liver, spleen, pancreas, adrenals, and kidneys. IMPRESSION: Small bilateral pleural effusions and areas of bibasilar atelectasis. No evidence of pulmonary embolic disease. RADIATION DOSE DELIVERED: 784.08mGy.cm Total DLP 784.08mGy.cm Total DLP DATA REPOSITORY: All CT scans at this facility are submitted to the National Radiology Data Registry (NRDR) Dose Index Registry (DIR) with the [employer] ([employer]). RADIATION OPTIMIZATION: All CT scans at this facility use at least one of these dose optimization te chniques: automated exposure control; mA and/or kV adjustment per patient size (includes targeted exa ms where dose is matched to clinical indication); or iterative reconstruction.
[2020-07-08] MEDS: methylPREDNISolone SUCC 125 MG VIAL IVP (12:48)
[2020-07-08] MEDS: Normal Saline 1,000 ML 125 ML IV (12:49)
[2020-07-08 12:58] LABS: PTT Activated 25.4 sec (21.0-27.5); Prothrombin Time 10.1 sec (9.3-11.0)
[2020-07-08 12:58] LABS: BE 2 mmol/L (-2-3); HCO3 27 mmol/L (22-26); pCO2 45 mmHg (35-45); pH 7.38 (7.35-7.45); pO2 104 mmHg (80-105); sO2 98 % (95-98); tCO2 24 mmol/L (23-27)
[2020-07-08 13:03] LABS: Site Right Radial
--- NOTE | 2020-07-08 13:15 | RT.EKG_ITS ---
APPROVED REPORT Exam: Resting ECG Patient Location: E HR:90 bpm ECG Measurements Heart Rate 90 AXIS NM 194 P 93 QRSd 101 QRS 60 QT 395 T 16 QTc 485 Conclusion Sinus rhythm...normal P axis, V-rate 60- 99 Probable lateral infarct, old...Q>35mS, abnormal ST-T, V5-6 I aVL Poor baseline. No STEMI. I have reviewed and interpreted ECG and agree with software generated interpretation.
[2020-07-08 13:16] LABS: Procalcitonin < 0.1 ng/mL
[2020-07-08 13:19] LABS: ALT 26 U/L (14-59); AST 21 U/L (15-37); Alkaline Phosphatase 87 U/L (46-116); Anion Gap 4.9 mmol/L (3-11); BUN 14 mg/dL (7-18); Bilirubin, Total 1.7 mg/dL (0.2-1.0); CO2 29.1 mmol/L (21.0-32.0); CREATININE 0.76 mg/dL (0.55-1.02); Calcium 8.6 mg/dL (8.5-10.1); Chloride 104 mmol/L (98-107); Glucose 95 mg/dL (74-106); Magnesium 1.9 mg/dL (1.8-2.4); NT-proBNP 68 pg/mL (<300); Potassium 3.4 mmol/L (3.5-5.1); Sodium 138 mmol/L (136-145); Total Protein 7.3 g/dL (6.4-8.2)
[2020-07-08 13:24] LABS: Troponin I < 0.05 ng/mL (<0.06)
[2020-07-08 14:04] LABS: Bilirubin Negative (Negative); Blood Negative (Negative); Clarity Sl Cloudy (Clear); Glucose Negative (Negative); Ketones Negative (Negative); Leukocyte Esterase Trace (Negative); Nitrite Negative (Negative); Specific Gravity 1.015 (1.005-1.025); Urobilinogen 0.2 EU/dL (Up TO 0.2)
[2020-07-08 14:11] LABS: Bacteria Few HPF (Negative); C & S Indicated? No/Sq. Contamination; Casts Negative LPF (Negative); Crystals Negative HPF (Negative); Epithelial Cells Many HPF (Negative); Mucus Negative (Negative); RBC Negative HPF (0-2)
[2020-07-08] MEDS: Omnipaque 350 MG/ML 100 ML BTL IJ (16:43)
[2020-07-08] MEDS: Normal Saline - Diluent 50 ML VIAL IV (16:44)
[2020-07-08] MEDS: Normal Saline Flush 10 ML SYR IVP (16:45)
--- NOTE | 2020-07-08 17:09 | DI.VRAD_ITS ---
PROCEDURE INFORMATION: Exam: CT Angiography Chest With Contrast Exam date and time: 07/08/2020 4:49 PM Age: 65 years old Clinical indication: Other: Sob/hx of pe TECHNIQUE: Imaging protocol: Computed tomographic angiography of the chest with intravenous contrast. 3D rendering (Not supervised by radiologist): MIP and/or 3D reconstructed images were created by the technologist. Contrast material: OMNIPAQUE 350; Contrast volume: 100 ml; Contrast route: INTRAVENOUS (IV); COMPARISON: CT CHEST PE CTA 11/29/2018 11:52 AM FINDINGS: Pulmonary arteries: Normal. No pulmonary emboli. Aorta: Unremarkable. No aortic aneurysm. No aortic dissection. Thyroid: Thyroid enlargement with bilateral nodules. Consider follow-up sonography. Lungs: Mild bibasilar atelectasis. Pleural space: There are small bilateral pleural effusions with mild bibasilar atelectasis. Heart: Cardiomegaly. Lymph nodes: There is mild hilar and mediastinal adenopathy. Bones/joints: Moderate thoracic spondylosis. Soft tissues: Unremarkable. Other findings: Respiratory motion noted. IMPRESSION: 1. No evidence for pulmonary embolus. 2. Minimal bilateral pleural effusions with atelectasis. 3. Mild hilar and mediastinal adenopathy. 4. Probable multinodular goiter. Dictated and Authenticated by: Betty Fernandez MD. Ordering:ENZO Agustin MD
[2020-07-08 17:14] LABS: Troponin I < 0.05 ng/mL (<0.06)
[2020-07-08] MEDS: Azithromycin 250 MG TAB 500 MG PO (18:29)
[2020-07-09 09:21] LABS: COVID-19 RT-PCR UVMMC Result Negative (Negative)
== END 2020-07-08 18:25 | disposition home or self-care (01) ==
PROVIDERS: Physician Assistant; Emergency Provider Physician Assistant; PCP Family Medicine
DX: J44.1 Chronic obstructive pulmonary disease with (acute) exacerbation (principal); R09.02 Hypoxemia; Z99.81 Dependence on supplemental oxygen; J98.11 Atelectasis; Z03.818 Encounter for observation for suspected exposure to other biological agents ruled out; E11.9 Type 2 diabetes mellitus without complications; Z79.84 Long term (current) use of oral hypoglycemic drugs; Z87.891 Personal history of nicotine dependence
CPT/HCPCS: 36415; 71275; 76942; 80053; 82805; 84145; 87040; 93005; 94640; 96361; 96374; 99285; U0003; 36600; 81003; 81015; 83605; 83735; 83880; 84484; 85025; 85610; 85730; 93010; J2930; J3490; J7613; J7620

== ENCOUNTER 2020-07-17 10:24 | Outpatient (CLI) | payer OTHER, SELFPAY ==
--- NOTE | 2020-07-17 06:45 | DI.US_ITS ---
EXAM: US THYROID CLINICAL HISTORY: thryoid enlargement seen on CT,E04.9. TECHNIQUE: Ultrasound thyroid performed using standard protocol. COMPARISON: No exams were available for comparison FINDINGS: RIGHT THYROID LOBE: Measures 2.6 centimeters AP by 3.5 centimeter wide by 6.4 centimetres cephalocaud al. There 2 nodules in the right lobe evident. At the midpole level there is a solid nodule measuri ng 1.9 x 1.5 x 1.3 centimetres.. This is taller than wider, bringing some suspicion. It is relative ly isoechoic to the surrounding parenchyma. Margins are smooth. No echogenic foci evident therein. Total points = 6 Below this level in the right lobe there is a 5 millimeter cyst and adjacent to it is a peripherally calcified 6 x 6 millimeter nodule. ISTHMUS: There is a solid nodule in the isthmus measuring 1.7 x 0.8 x 1.7 centimeters. Isoechoic 2 p arenchyma. Not taller than wider. Smooth margins. No echogenic foci therein. Total points=3 Left thyroid lobe measures 2.7 centimeters AP x 3.5 centimetres wide by 5.2 centimetres cephalocaudal . There is a solitary nodule in the left lobe which measures 4 x 2.9 x 3.2 centimetres. This nodule is solid, isoechoic to the parenchyma, and contains a 6 millimeter macro calcification therein. Not tall er than wider. Total point= 4. IMPRESSION: Bilateral nodules as described above plus an additional solid nodule in the isthmus. The most suspici ous nodule is the solid nodule in the right lobe which is taller than wider and exhibits TI-RADS 4 The nodule described above in the left lobe is also moderately suspicious/TI-RADS 4. DATA REPOSITORY:
== END 2020-07-17 10:44 ==
PROVIDERS: PCP Family Medicine; Visit Provider Family Medicine
DX: E04.2 Nontoxic multinodular goiter (principal)
CPT/HCPCS: 76536

== ENCOUNTER 2021-03-09 19:01 | Outpatient (REF) | payer OTHER, MEDICAID, SELFPAY | END 2021-03-09 19:02 | disposition home or self-care (01) | LOC: LBN 19:01 | PROVIDERS: PCP Family Medicine; Visit Provider Nurse Practitioner Family | DX: L03.115 Cellulitis of right lower limb (principal) | CPT/HCPCS: 87070; 87205 ==

== ENCOUNTER 2021-05-05 15:07 | Emergency (ER) | payer OTHER, MEDICAID, SELFPAY ==
--- OUTSIDE RECORDS SUMMARY | 2021-05-05 15:12 | XMS_ITS ---
:1955 Author Care Team Providers Name Role Phone [facility]ICAL RECORDS Primary Care Provider [phone] CYRIL CERNA MD Primary Care Provider [phone] Allergies Code Code System Name Reaction Severity Status Onset 5739 RxNorm Hydrocodone ? ? Active ? Iodinated ? ? Active ? Contrast Media 7052 RxNorm Morphine ? ? Active ? 7803 RxNorm Oxycodone ? ? Active ? Medications Name Status Start Date Stop Date ? ? Advair Diskus 250 mcg-50 mcg/dose powder for inhalation Active ? Not available Inhale 1 puff twice a day by inhalation route. Ambien 10 mg tablet Completed ? 06/29/2019 Take 1 tablet every day by oral route at bedtime. aspirin 325 mg tablet Active ? Not availa ble Take 1 tablet every day by oral route. buspirone 5 mg tablet Completed ? 06/29/2019 citalopram 20 mg tablet Active ? Not avai lable clotrimazole 1 % topical cream Active ? N ot available cyclobenzaprine 10 mg tablet Active ? Not available doxycycline hyclate 100 mg Completed ? 06/29 capsule DuoNeb 2.5 mg-0.5 mg/3 mL solution for nebulization Active ? Not available Inhale 3 mL 4 times a day by nebulization route. Flexeril 5 mg tablet Completed ? 06/29/2019 Take 1 tablet as needed by oral route. fluticasone propionate 50 Active ? Not av ailable mcg/actuation nasal spray,suspension furosemide 20 mg tablet Active ? Not avai lable furosemide 40 mg tablet Completed ? 06/29/20 19 FV Vitamin C 1000 mg tablet Active ? Not available Take 1 tablet every day by oral route. gabapentin 100 mg capsule Active ? Not av ailable gabapentin 300 mg capsule Active ? Not av ailable Take 1 capsule twice a day by oral route. Guaifenesin-Codeine Completed ? 06/29/2019 100-10mg/5ml oral syrup-Q8hrs PRN Incruse Ellipta 62.5 Active ? Not availab le mcg/actuation powder for inhalation ipratropium 0.5 mg-albuterol 3 Active ? N ot available mg (2.5 mg base)/3 mL nebulization soln levofloxacin 500 mg tablet Completed ? 06/29 levofloxacin 750 mg tablet Completed ? 06/29 metformin 500 mg tablet Active ? Not avai lable metolazone 2.5 mg tablet Completed ? 019 Take 1 tablet every day by oral route. nystatin powder Active ? Not available 1 thin layer BID PRN Nystop 100,000 unit/gram topical Completed ? 06/29/2019 powder pantoprazole 40 mg Completed ? 06/29/2019 tablet,delayed release potassium chloride ER 10 mEq Active ? Not available capsule,extended release prednisone 10 mg tablet Completed ? 06/29/20 prednisone 20 mg tablet Completed ? 06/29/20 19 Symbicort Active 06/15/2019 Not available Symbicort 160 mcg-4.5 Completed ? 06/29/2019 mcg/actuation HFA aerosol inhaler topiramate 50 mg tablet Active ? Not avai lable Take 1 tablet twice a day by oral route. triamcinolone acetonide 0.1 % Active ? No t available topical cream Ventolin HFA 90 mcg/actuation Active ? No t available aerosol inhaler Wellbutrin XL 150 mg 24 hr tablet, extended release Completed ? 06/29/2019 Take 1 tablet every day by oral route. Problems Name Status Onset Date Source ? Obesity Active 07/19/2018 ? Depressive Disorder Active 07/19/2018 ? Hypersomnia Active 07/19/2018 ? Obstructive Sleep Apnea Syndrome Active 07/19/2018 ? Chronic Obstructive Lung Disease Active 07/19/2018 ? Knee Pain Active 07/19/2018 ? Chronic Back Pain Active 07/19/2018 ? Fatigue Active 07/19/2018 ? Edema Active 07/19/2018 ? Snoring Active 07/19/2018 ? Nocturnal Enuresis Active 07/19/2018 ? Hypoxia Active 07/19/2018 ? Insomnia Active 07/20/2018 ? Procedures Date Name Performed by ? 06/29/2019 LDCT, Chest, for Lung Cancer Xray [facility] Screening [address] [place], [place] [address] (Work [address]) Results Lab Results None recorded. Past Encounters None recorded. Social History Tobacco Smoking Status Former Smoker Notes: quit in 2006 Vaccine List Vaccine Type influenza, injectable, quadrivalent 06/15/2019 Plan of Care Reminders Provider Appointments None ? ? recorded. Lab None ? ? recorded. Referral None ? ? recorded. Procedures None ? ? recorded. Surgeries None ? ? recorded. Imaging None ? ? recorded. Vitals 06/29/2019 01:00PM New Patient 45 Height Weight BMI Blood Pressure 161.29 cm 195.5 kg 75.2 kg/m2 136/74 mm[Hg] 09/12/2018 10:00AM Office 30 Height Blood Pressure 161.29 cm 120/72 mm[Hg] 07/20/2018 09:15AM New Patient 45 Height Weight BMI Blood Pressure 161.29 cm 185.97 kg 71.5 kg/m2 146/88 mm[Hg]
[2021-05-05 15:15] VITALS: BP 135/63; PULSE 84; RESP 24; TEMP 36.7; O2SAT 94
--- NOTE | 2021-05-05 15:15 | RT.EKG_ITS ---
APPROVED REPORT Exam: Resting ECG Reason for Exam: sob Patient Location: E HR:79 bpm ECG Measurements Heart Rate 79 AXIS TN [id number] P [id number] QRSd 111 QRS 42 QT 418 T -11 QTc 480 Conclusion Narrow complex, regular Inferior q waves, age indeterminate...Q>35mS, T neg, II III aVF
--- NOTE | 2021-05-05 15:30 | DI.RAD_ITS ---
Exam(s) XR PORTABLE CHEST AP EXAM: XR PORTABLE CHEST AP CLINICAL HISTORY: cough, congestion. TECHNIQUE: 2D digital imaging was performed. COMPARISON: CR,XR XR PORTABLE CHEST AP from 03/23/2020 FINDINGS: Heart size unchanged. The mediastinum is not widened. There is a pulmonary venous hypertension pattern. No katerni airspace pulmonary edema. No Bonnie B li beverly evident. No pleural effusions. IMPRESSION: Pulmonary venous hypertension pattern. Recommend nonportable PA and lateral views when clinically po ssible. No obvious pleural effusions evident on this single portable view. DATA REPOSITORY: RADIATION DOSE DELIVERED: All CT scans at this facility use at least one of these dose optimization techniques: automated exposure control; mA and/or kV adjustment per patient size (includes targeted e xams where dose is matched to clinical indication); or iterative reconstruction.
--- NOTE | 2021-05-05 15:39 | ED.GENADUL_ITS ---
Discharge Plan Disposition Patient Disposition: HOME Condition: Improving Discharge Details Clinical Impression: Ulcer of right lower extremity, Bronchitis Primary Care Provider: Alphonso Murphy ED Provider: Nakul Robbins Home Meds and New Rx's Prescriptions: New amoxicillin-pot clavulanate 875-125 mg tablet 1 tab PO BID 9 Days Qty: 18 RF: 0 Continued triamcinolone acetonide 0.1 % cream 1 applic Topical BID PRN (Reason: rash on legs) Qty: 30 RF: 2 triamcinolone acetonide 0.1 % cream 1 applic TP BID PRN (Reason: neck/chest rash) Qty: 30 RF: 0 prednisone 20 mg tablet 10 - 40 mg PO DAILY Qty: 12 RF: 0 prednisone 20 mg tablet 40 mg PO DAILY Qty: 10 RF: 0 Anoro Ellipta 62.5-25 mcg/actuation blister with device 1 inh inhalation DAILY Qty: 60 RF: 2 furosemide 40 mg tablet 80 mg PO DAILY Qty: 90 RF: 3 metformin 1,000 mg tablet 1,000 mg PO BID Qty: 180 RF: 3 fluticasone propionate [Flonase Allergy Relief] 50 mcg/actuation spray,suspension 1 spray NS DAILY Qty: 1 RF: 8 cephalexin 500 mg capsule 500 mg PO QID RF: 0 clotrimazole 1 % cream 1 applic topical TID Qty: 30 RF: 2 nystatin 100,000 unit/gram powder 1 applic TP BID PRN (Reason: intertrigo) Qty: 30 RF: 5 ketotifen fumarate [Zaditor] 0.025 % (0.035 %) drops 1 drp OP BID PRN (Reason: allergy symptoms) Qty: 5 RF: 2 ascorbic acid (vitamin C) 1,000 MG tablet 1,000 mg PO DAILY RF: 0 (DME) Aerochamber Mini 1 EACH spacer 1 ea Inhalation PRN Qty: 1 RF: 0 BiPAP Inhalation Gas 5 l IN DIRECTED RF: 0 oxygen Inhalation 2 l Intranasal DIRECTED RF: 0 silver sulfadiazine 20 GM cream 1 applic Topical BID PRNQty: 60 RF: 2 montelukast [Singulair] 10 mg tablet 10 mg PO DAILY Qty: 30 RF: 11 albuterol sulfate [ProAir HFA] 90 mcg/actuation HFA aerosol inhaler 1 - 2 puff Inhalation Q6H PRN Qty: 1 RF: 11 budesonide-formoterol [Symbicort] 160-4.5 mcg/actuation HFA aerosol inhaler 2 puff Inhalation BID Qty: 1 RF: 11 buspirone 5 mg tablet 10 mg PO TID PRN (Reason: anxiety) Qty: 60 RF: 11 citalopram [Celexa] 20 mg tablet 20 mg PO DAILY Qty: 90 RF: 3 ipratropium-albuterol 0.5 mg-3 mg(2.5 mg base)/3 mL solution for nebulization 3 ml IH QID MDD 4 nebs Qty: 180 RF: 3 potassium chloride 10 mEq capsule, extended release 20 meq PO BID Qty: 360 RF: 3 alclometasone 0.05 % cream 1 applic topical BID PRN (Reason: itching) Qty: 45 RF: 1 ketoconazole 2 % cream 1 applic topical BID PRN (Reason: rash) Qty: 60 RF: 1 aspirin 325 MG tablet 325 mg PO DAILY Qty: 0 RF: 0 prednisone 50 mg tablet 50 mg PO DAILY Qty: 4 RF: 0 No Action doxycycline hyclate 100 mg capsule 100 mg PO BID Qty: 14 RF: 0 Discharge Instructions Instructions: Acute Bronchitis (ED) Additional Instructions: Your COVID-19 test is pending and we will call you if you have a positive result. Take antibiotics as prescribed. Follow-up with [facility] wound care as planned. I will place a referral with our care management team for outpatient wound care as we discussed. Return to the ER for any acute concerns. Medical Decision Making This is a 66-year-old female with a number of chronic medical problems who presents with right lower extremity wound that she has had for 3 or more weeks. She had daily in-home wound care visits. Noticed increased drainage from the wound over the course of the day today since having the dressing changed. Also she will note a URI with dry cough. She is fully immunized against COVID-19. Patient presents afebrile, blood pressure 135/63, 94% sat on room air. Patient had screening blood work and COVID-19 test obtained. She was referred for chest x-ray and was seen by wound care. Patient's x-ray reveals faint opacities of the bilateral lung bases which may represent atelectasis versus pneumonia. Her wound was redressed with Mepilex and compressive dressing. Patient's Covid test is pending. Her white count is 8 with hematocrit of 40, VBG unremarkable, chemistries within normal limits. She does feel that she had increased drainage and foul-smelling from the wound after stopping Keflex. Given the findings on x-ray will place her on Augmentin. She has freestanding follow-up with [facility] wound care and I will at least consider referring her to the [facility] wound care service. HPI General Mode of arrival: wheelchair . Date/Time Provider Initiated Documentation: 05/05/21 15:16 . Limitations to Documentation: no limitations . Information obtained by: patient . History of Present Illness 66 year old F presents to the emergency department with the chief complaint of Right leg ulceration, rhinorrhea and stuffiness, described as moderate, Quality is described as dull and constant, and is localized to the right and lower extremity. Patient reports no radiation. Patient started experiencing this day(s) and it has been constant. No relieving factors improve symptom(s), No exacerbating factors reported . Patient notes cough; denies chest pain, fever/chills and shortness of breath. Patient did receive the following treatments prior to arrival, none Related Data Home Medications Medication Instructions Recorded Confirmed ascorbic acid (vitamin C) 1,000 mg PO DAILY 11/25/12 04/24/21 Aerochamber Mini #1 inhaler 12/21/13 04/24/21 Bipap 5 l IN DIRECTED 07/23/14 04/24/21 Oxygen 2 l INTRANASAL DIRECTED 12/24/14 04/24/21 aspirin 325 mg PO DAILY #0 tab-cap 06/22/15 04/24/21 silver sulfadiazine 1 applic TOPICAL BID PRN #60 gm 12/28/17 04/24/21 triamcinolone acetonide 0.1 % 1 applic TOPICAL BID PRN #30 gm 12/22/18 04/24/21 topical cream clotrimazole 1 % topical cream 1 applic TOPICAL TID #30 gm 02/20/19 04/24/21 nystatin 100,000 unit/gram topical 1 applic TP BID PRN #30 gm 02/20/19 04/24/21 powder ketotifen fumarate 0.025 % (0.035 1 drp OP BID PRN #5 ml 04/27/19 04/24/21 %) eye drops triamcinolone acetonide 0.1 % 1 applic TP BID PRN #30 gm 08/24/19 04/24/21 topical cream montelukast 10 mg tablet 10 mg PO DAILY #30 tab 01/29/20 04/24/21 albuterol sulfate 90 mcg/actuation 1 - 2 puff INHALATION Q6H PRN #1 06/06/20 04/24/21 aerosol inhaler inhaler budesonide-formoterol HFA 160 2 puff INHALATION BID #1 inh 06/06/20 04/24/21 mcg-4.5 mcg/actuation aerosol inhaler buspirone 5 mg tablet 10 mg PO TID PRN #60 tab 06/06/20 04/24/21 citalopram 20 mg tablet 20 mg PO DAILY #90 tab-cap 06/06/20 04/24/21 ipratropium 0.5 mg-albuterol 3 mg 3 ml IH QID #180 ml MDD 4 nebs 06/06/20 04/24/21 (2.5 mg base)/3 mL nebulization soln potassium chloride 10 mEq 20 meq PO BID #360 tab-cap 06/06/20 04/24/21 capsule,extended release prednisone 50 mg PO DAILY #4 tab 07/08/20 04/24/21 prednisone 20 mg tablet 10 - 40 mg PO DAILY #12 tab 07/15/20 04/24/21 doxycycline hyclate 100 mg capsule 100 mg PO BID #14 cap 10/15/20 04/24/21 prednisone 20 mg tablet 40 mg PO DAILY #10 tab 10/15/20 04/24/21 umeclidinium 62.5 mcg-vilanterol 1 inh INHALATION DAILY #60 ea 10/15/20 04/24/21 25 mcg/actuation powdr for inhalation fluticasone propionate 50 1 spray NS DAILY #1 canister 01/14/21 04/24/21 mcg/actuation nasal spray,suspension furosemide 40 mg tablet 80 mg PO DAILY #90 tab 01/14/21 04/24/21 metformin 1,000 mg tablet 1,000 mg PO BID #180 tab 01/14/21 04/24/21 alclometasone 0.05 % topical cream 1 applic TOPICAL BID PRN #45 g 01/30/21 04/24/21 ketoconazole 2 % topical cream 1 applic TOPICAL BID PRN #60 g 01/30/21 04/24/21 cephalexin 500 mg capsule 500 mg PO QID 04/24/21 04/24/21 amoxicillin-pot clavulanate 1 tab PO BID 9 Days #18 tab 05/05/21 Previous Rx's Medication Instructions Recorded aspirin 325 mg PO DAILY #0 tab-cap 06/22/15 triamcinolone acetonide 0.1 % 1 applic TOPICAL BID PRN #30 gm 12/22/18 topical cream clotrimazole 1 % topical cream 1 applic TOPICAL TID #30 gm 02/20/19 nystatin 100,000 unit/gram topical 1 applic TP BID PRN #30 gm 02/20/19 powder ketotifen fumarate 0.025 % (0.035 1 drp OP BID PRN #5 ml 04/27/19 %) eye drops triamcinolone acetonide 0.1 % 1 applic TP BID PRN #30 gm 08/24/19 topical cream montelukast 10 mg tablet 10 mg PO DAILY #30 tab 01/29/20 albuterol sulfate 90 mcg/actuation 1 - 2 puff INHALATION Q6H PRN #1 06/06/20 aerosol inhaler inhaler budesonide-formoterol HFA 160 2 puff INHALATION BID #1 inh 06/06/20 mcg-4.5 mcg/actuation aerosol inhaler buspirone 5 mg tablet 10 mg PO TID PRN #60 tab 06/06/20 citalopram 20 mg tablet 20 mg PO DAILY #90 tab-cap 06/06/20 ipratropium 0.5 mg-albuterol 3 mg 3 ml IH QID #180 ml MDD 4 nebs 06/06/20 (2.5 mg base)/3 mL nebulization soln potassium chloride 10 mEq 20 meq PO BID #360 tab-cap 06/06/20 capsule,extended release prednisone 50 mg PO DAILY #4 tab 07/08/20 prednisone 20 mg tablet 10 - 40 mg PO DAILY #12 tab 07/15/20 doxycycline hyclate 100 mg capsule 100 mg PO BID #14 cap 10/15/20 prednisone 20 mg tablet 40 mg PO DAILY #10 tab 10/15/20 umeclidinium 62.5 mcg-vilanterol 1 inh INHALATION DAILY #60 ea 10/15/20 25 mcg/actuation powdr for inhalation fluticasone propionate 50 1 spray NS DAILY #1 canister 01/14/21 mcg/actuation nasal spray,suspension furosemide 40 mg tablet 80 mg PO DAILY #90 tab 01/14/21 metformin 1,000 mg tablet 1,000 mg PO BID #180 tab 01/14/21 alclometasone 0.05 % topical cream 1 applic TOPICAL BID PRN #45 g 01/30/21 ketoconazole 2 % topical cream 1 applic TOPICAL BID PRN #60 g 01/30/21 amoxicillin-pot clavulanate 1 tab PO BID 9 Days #18 tab 05/05/21 Allergies Allergy/AdvReac Type Severity Reaction Status Date / Time hydrocodone Allergy Severe ITCHING Verified 01/14/21 13:19 morphine Allergy Mild PRURITIS Verified 01/14/21 13:19 oxycodone Allergy Mild ITCHING Verified 01/14/21 13:19 General Stated Complaint: [employer] REUBEN: 2 Review of Systems Narrative: Immunized against Covid. No known travel or sick contacts. No wheezing. Has had chronic leg ulceration that was changed this morning by home health nurse. No vomiting. No chest pain. 8 systems reviewed and otherwise negative. [facility] Medical History Allergic sinusitis Chronic headaches Recent Neurology consult for possible papilledema. Chronic obstructive lung disease Quit smoking 2010. PFTs 09/2012 showed an FEV1 of 60% with improvement to 80% with bronchodilator, thought to be severe restrictive disease. Depressive disorder Goiter, nontoxic, multinodular (05/03/14) Grief at loss of child Hypercapnic respiratory failure Hyperglycemia Insomnia with sleep apnea Knee pain, bilateral (07/23/14) s/p bilat TKR (left infected with mult surg and decreased mobility) Low back pain with sciatica (05/03/14) CT at [facility] L34 spinal stenosis Morbid obesity (04/05/13) Obstructive sleep apnea syndrome Pulmonary embolism Recurrent UTI Right ventricular dysfunction Sensorineural hearing loss, bilateral (08/29/13) Urinary incontinence On Detrol Varicose veins of lower extremity Wrist pain, right Surgical History Fasciotomy, Foot (~1996) LEFT History of Surgical Procedure a. Right and left toal knee replacements. b. Left knee has been repeatedly operated on with slava surgies, three replacements. Replacement of total knee joint Bilateral; left-became ensfigak-ydmzcqe-vjqtkzra surgeries Family History Mother Diabetes Personal history of malignant neoplasm LUNG Father Personal history of malignant neoplasm BRAIN Grandfather No problems noted. Grandfather No problems noted. Grandmother No problems noted. Grandmother No problems noted. Social History Smoking/Tobacco Use Status: Former Tobacco Use Smoking risk assessment performed?: Yes Alcohol Intake: never Drug use: Never Current gender identity: female Do you feel safe at home: Yes Do you feel safe in your relationship?: Yes Exam Narrative Exam Narrative: GEN: awake, alert, oriented 3. Pleasant, well groomed, interactive. HEAD: Normocephalic, atraumatic ENT: Mucous membranes moist, oropharynx unremarkable, External ear exam unremarkable EYES: PERRL, EOMI NECK: Full ROM, no MITCH, no menigismus distended, CHEST/RESP: Nontender, clear to auscultation bilateral, no wheeze/rhonchi/rales CARDIOVASCULAR: RRR, no murmur, rub amira. 2+ Rad pulse bilateral ABDOMEN: Soft, nontender, no mass. +Bowel sounds EXT: Full ROM, brawny edema bilateral legs, the right anterior tibia has approximately 10 x 20 cm area of ulcerated skin. There is no surrounding warmth, no purulent expressed fluid and no fluctuance to the area. Neuro: Grossly normal neurologic exam, conversant, interactive. Psych: Speech fluent, thoughts congruent, affect normal Course Vital Signs Vital signs: Vital Signs Temperature 36.7 C 05/05/21 15:15 Pulse 84 05/05/21 15:15 Respiratory Rate 24 05/05/21 15:15 Blood Pressure 135/63 05/05/21 15:15 Pulse Oximetry 94 05/05/21 15:15 Temperature 36.7 C 05/05/21 15:15 Temperature Source Skin 05/05/21 15:15 Pulse 84 05/05/21 15:15 Respiratory Rate 24 05/05/21 15:15 Respiratory Effort Labored 05/05/21 15:19 Blood Pressure 135/63 05/05/21 15:15 Blood Pressure Position Sitting 05/05/21 15:15 Pulse Oximetry 94 05/05/21 15:15 Oxygen Delivery Method Nasal Cannula 05/05/21 15:15 Oxygen Flow Rate 3 05/05/21 15:15 Pain Level 8 05/05/21 15:15
[2021-05-05 16:23] LABS: Source Nasal/Nares
[2021-05-05 16:24] LABS: Abs Immature Grans 0.02 10^3/uL (0.0-0.06); Absolute Basophil Count 0.04 10^3/uL (0.0-0.2); Absolute Eosinophil Count 0.32 10^3/uL (0.0-0.7); Absolute Lymphocyte Count 2.28 10^3/uL (1.2-3.4); Absolute Monocyte Count 0.81 10^3/uL (0.1-0.8); Absolute Neutrophil Count 5.43 10^3/uL (1.2-6.7); Basophils % 0.4; Eosinophils % 3.6; HCT 40.8 % (36.0-46.0); HGB 13.3 g/dL (11.2-15.7); Immature Grans % 0.2; Lymphocytes % 25.6; MCHC 32.6 % (32.0-36.0); MCV 85.9 fL (80-95); MPV 10.8 fL (8.0-11.0); Monocytes % 9.1; Neutrophils % 61.1; Nucleated RBC 0 %; Platelet Count 286 10^3/uL (130-400); RBC 4.75 10^6/uL (3.93-5.22); RDW 13.7 % (11.7-14.6); RDW-SD 42.5 fL
[2021-05-05 16:25] LABS: BE (Venous) 4 mmol/L (-2-3); HCO3 (Venous) 30 mmol/L (23-28); O2 Sat (Venous) 88 %; TCO2 (Venous) 27 mmol/L (24-29); pCO2 (Venous) 51 mmHg (41-51); pH (Venous) 7.37 (7.31-7.41); pO2 (Venous) 54 mmHg
--- NOTE | 2021-05-05 16:38 | DI.VRAD_ITS ---
PROCEDURE INFORMATION: Exam: XR Chest Exam date and time: 05/05/2021 3:40 PM Age: 66 years old Clinical indication: Cough, congestion TECHNIQUE: Imaging protocol: XR of the chest. Views: 1 view. COMPARISON: CR XR PORTABLE CHEST AP 03/23/2020 5:31 PM FINDINGS: Limitations: The study is limited secondary to patient body habitus and underpenetration. Lungs: Patchy opacities noted at the lung bases bilaterally, which may be secondary to atelectasis versus pneumonia. Pleural spaces: No large pleural effusion seen. No pneumothorax. Heart/Mediastinum: The left heart border is not well evaluated due to underpenetration and likely pericardial fat pad. Bones/joints: Unremarkable. IMPRESSION: Slightly limited examination with faint opacities at the bilateral lung bases, which may represent atelectasis versus pneumonia. Correlate with clinical findings. Dictated and Authenticated by: Teena Foster MD. Ordering:PAULINE Mota MD
[2021-05-05 16:50] LABS: ALT 30 U/L (14-59); AST 25 U/L (15-37); Albumin 2.9 g/dL (3.4-5.0); Alkaline Phosphatase 98 U/L (46-116); Anion Gap 6.2 mmol/L (3-11); BUN 13 mg/dL (7-18); Bilirubin, Total 0.8 mg/dL (0.2-1.0); CO2 29.8 mmol/L (21.0-32.0); CREATININE 0.8 mg/dL (0.55-1.02); Calcium 8.5 mg/dL (8.5-10.1); Chloride 105 mmol/L (98-107); Glucose 96 mg/dL (74-106); Potassium 3.8 mmol/L (3.5-5.1); Sodium 141 mmol/L (136-145); Total Protein 7.4 g/dL (6.4-8.2)
[2021-05-05] MEDS: Albuterol/Ipratropium 3 ML UPD VIAL UPD (17:21)
[2021-05-05] MEDS: Amox. 875/Clav. 125, 2 TABS/BTL 1 TAB PO (18:51)
--- NOTE | 2021-05-05 19:44 | WOUNDCON1 ---
- If Service Date Differs Date of service: 05/05/21 Time of Service: 15:00 Wound Initial Evaluation Narrative: Pt in a PUI room, photographs deferred @ this time. She is agreeable to wound consult. asked for a one time opinion. Pt reports she has had the wound on her RLE/dobson for about 3 months. she reports being followed by [facility] wound clinci weekly. She states she has increased oozing from wound and thinks the home health nurse did not apply dressing appropriately and was concerned about increased drainage. Wound cleansed with debrisoft pad. White patches of maceration noted throughout wound bed. measures 16x15 cm. no depth to wound. Area looks hypergranulated. Area dressed with mepilex AG, covered with optilock, wrapped with kerlix and secured with an TONE wrap. This is similar to dressing that was removed when pt came into ED. Recommend continuing to follow [place] care [place] [facility] [place]. Thank you for the consult.
--- NOTE | 2021-05-05 21:39 | NUR.NOTE ---
Referral to Care Management to get patient appt with Hyperbaric therapy at [facility] for a r leg ulcer.Nursing Note:
[2021-05-05 22:04] LABS: COVID-19 PCR Negative (Negative)
--- NOTE | 2021-05-06 12:08 | NUR.NOTE ---
patient notified of negative covid test results.
--- NOTE | 2021-05-06 12:20 | CMPROGNOTE_ITS ---
- If Service Date Differs Time of Service: 12:20 Care Management Progress Note Radha is seen in the ED for ulcer of right lower extremity and bronchitis. At the request of ED provider, CM coordinates a referral to [facility] at [facility] for hyperbaric therapy of the leg ulcer.
== END 2021-05-05 19:10 | disposition home or self-care (01) ==
PROVIDERS: Emergency Provider Emergency Medicine; PCP Family Medicine
DX: J20.9 Acute bronchitis, unspecified (principal); R06.02 Shortness of breath; Z20.822 Contact with and (suspected) exposure to COVID-19; S81.801A Unspecified open wound, right lower leg, initial encounter
CPT/HCPCS: 36415; 80053; 82805; 87635; 93005; 99284; 71045; 85025; 93010; J7620

== ENCOUNTER 2021-11-17 10:51 | Emergency (ER) | payer MEDICARE, SELFPAY ==
[2021-11-17 11:06] VITALS: BP 133/62; PULSE 75; RESP 24; TEMP 36.7; O2SAT 92
--- NOTE | 2021-11-17 11:15 | RT.EKG_ITS ---
APPROVED REPORT Exam: Resting ECG Reason for Exam: shortness Patient Location: E HR:75 bpm ECG Measurements Heart Rate 75 AXIS VA 73 P 166 QRSd 112 QRS 63 QT 406 T 25 QTc 454 Conclusion Incomplete analysis due to missing data in precordial lead(s) Sinus or ectopic atrial rhythm...P axis (-45,135) missing V1 - recommend repeat
--- NOTE | 2021-11-17 11:58 | W.ED.GENAD ---
Discharge Plan Disposition Patient Disposition: AGAINST MEDICAL ADVICE Condition: Stable Discharge Details Clinical Impression: Chronic obstructive lung disease, COPD exacerbation Primary Care Provider: Alphonso Murphy ED Provider: Jackie Scott Home Meds and New Rx's Prescriptions: New doxycycline hyclate 100 mg capsule 100 mg PO BID Qty: 14 0RF prednisone 20 mg tablet 40 mg PO DAILY Qty: 10 0RF Continued triamcinolone acetonide 0.1 % cream 1 applic Topical BID PRN (Reason: rash on legs) Qty: 30 2RF prednisone 20 mg tablet 10 - 40 mg PO DAILY Qty: 12 0RF Rx Instructions: 2 /day for 3 days, then 1 /day for 4 days, then 1/2 day for 4 days prednisone 20 mg tablet 40 mg PO DAILY Qty: 10 0RF Rx Instructions: furosemide 40 mg tablet 80 mg PO DAILY Qty: 90 3RF Rx Instructions: [place] [facility] [place] 1,000 mg tablet 1,000 mg PO BID Qty: 180 3RF fluticasone propionate [Flonase Allergy Relief] 50 mcg/actuation spray,suspension 1 spray NS DAILY Qty: 1 8RF clotrimazole 1 % cream 1 applic topical TID Qty: 30 2RF nystatin 100,000 unit/gram powder 1 applic TP BID PRN (Reason: intertrigo) Qty: 30 5RF ketotifen fumarate [Zaditor] 0.025 % (0.035 %) drops 1 drp OP BID PRN (Reason: allergy symptoms) Qty: 5 2RF Rx Instructions: administer at least 8 hours apart ascorbic acid (vitamin C) 1,000 MG tablet 1,000 mg PO DAILY 0RF (DME) Aerochamber Mini 1 EACH spacer 1 ea Inhalation PRN Qty: 1 0RF Rx Instructions: DIRECTED WITH INHALER BiPAP Inhalation Gas 5 l IN DIRECTED 0RF Rx Instructions: sleep apnea ([facility] sleep lab 2013) uses with oxygen oxygen Inhalation 2 l Intranasal DIRECTED 0RF Label Comments: Continuous and uses with bipap Rx Instructions: 2L/NC continuous silver sulfadiazine 20 GM cream 1 applic Topical BID PRNQty: 60 2RF Rx Instructions: apply to leg redness prn montelukast [Singulair] 10 mg tablet 10 mg PO DAILY Qty: 30 11RF albuterol sulfate [ProAir HFA] 90 mcg/actuation HFA aerosol inhaler 1 - 2 puff Inhalation Q6H PRN Qty: 1 11RF citalopram [Celexa] 20 mg tablet 20 mg PO DAILY Qty: 90 3RF ipratropium-albuterol 0.5 mg-3 mg(2.5 mg base)/3 mL solution for nebulization 3 ml IH QID MDD 4 nebs Qty: 180 3RF ketoconazole 2 % cream 1 applic topical BID PRN (Reason: rash) Qty: 60 1RF sulfamethoxazole-trimethoprim [Bactrim DS] 800-160 mg tablet 1 tab PO BID Qty: 14 0RF betamethasone, augmented 0.05 % lotion 1 applic topical BID PRN (Reason: allergic reaction) Qty: 60 2RF buspirone 5 mg tablet 10 mg PO TID PRN (Reason: anxiety) Qty: 60 11RF tizanidine 2 mg tablet 2 mg PO Q8H PRN (Reason: muscle spasticity) Qty: 20 0RF alclometasone 0.05 % cream 1 applic topical BID PRN (Reason: itching) Qty: 45 1RF aspirin 325 MG tablet 325 mg PO DAILY Qty: 0 0RF prednisone 50 mg tablet 50 mg PO DAILY Qty: 4 0RF Discharge Instructions Instructions: COPD (Chronic Obstructive Pulmonary Disease) (ED) Additional Instructions: Yogurt daily while on antibiotic Take antibiotic as prescribed Take prednisone daily Continue on your nebulizer treatments every 4 hours Please return should you have new or worsening complaints Referrals: Alphonso Murphy MD [Primary Care Provider] - Discharge Data Discharge Date/Time-TO BE ENTERED AT DEPARTURE: 11/17/21 15:45 Medical Decision Making Chest x-ray with bilateral interstitial infiltrates per x-ray and radiology interpretation Diagnostic labs do not show acute change from prior assessment Covid swab negative X-ray results were not relayed to patient and she had eloped prior to reassessment I did prescribe prednisone and doxycycline to patient listed pharmacy, however this information was not relayed to patient She is not hypoxic and her vitals are stable just prior to eloping She was alert, oriented, of decisional capacity throughout the entirety of this assessment I considered pulmonary embolism and CHF, however patient was not presenting with clinical exam findings consistent the presentations She will need close outpatient follow-up Medical Records Medical records reviewed: Yes I reviewed the patient's medical records. Lab Data Lab results reviewed: Yes I reviewed the patient's lab results. HPI General Date/Time Provider Initiated Documentation: 11/17/21 11:14. HPI Narrative: This 66-year-old female with history of back pain, dysphasia, peripheral vascular disease, COPD, pneumonia, goiter presents with report of shortness of breath and productive cough. Denies known sick contacts. Denies any fever or chills. Denies any calf pain or swelling or history of coagulopathy. On her 3 L of oxygen at baseline has had mild worsening dyspnea, denies any chest pain. Denies any hemoptysis. Denies weight gain. Covid vaccinated but not restarted. Related Data Home Medications Medication Instructions Recorded Confirmed ascorbic acid (vitamin C) 1,000 mg 1,000 mg PO DAILY 11/25/12 11/17/21 tablet inhalational spacing device #1 inhaler 12/21/13 11/17/21 (Aerochamber Mini) Bipap 5 l IN DIRECTED 07/23/14 11/17/21 Oxygen 2 l INTRANASAL DIRECTED 12/24/14 11/17/21 aspirin 325 mg tablet 325 mg PO DAILY #0 tab-cap 06/22/15 11/17/21 silver sulfadiazine 1 % topical 1 applic TOPICAL BID PRN #60 gm 12/28/17 11/17/21 cream triamcinolone acetonide 0.1 % 1 applic TOPICAL BID PRN #30 gm 12/22/18 11/17/21 topical cream clotrimazole 1 % topical cream 1 applic TOPICAL TID #30 gm 02/20/19 11/17/21 nystatin 100,000 unit/gram topical 1 applic TP BID PRN #30 gm 02/20/19 11/17/21 powder ketotifen fumarate 0.025 % (0.035 1 drp OP BID PRN #5 ml 04/27/19 11/17/21 %) eye drops (Zaditor) montelukast 10 mg tablet 10 mg PO DAILY #30 tab 01/29/20 11/17/21 (Singulair) albuterol sulfate 90 mcg/actuation 1 - 2 puff INHALATION Q6H PRN #1 06/06/20 11/17/21 aerosol inhaler (ProAir HFA) inhaler citalopram 20 mg tablet (Celexa) 20 mg PO DAILY #90 tab-cap 06/06/20 11/17/21 ipratropium 0.5 mg-albuterol 3 mg 3 ml IH QID #180 ml MDD 4 nebs 06/06/20 11/17/21 (2.5 mg base)/3 mL nebulization soln prednisone 50 mg tablet 50 mg PO DAILY #4 tab 07/08/20 11/17/21 prednisone 20 mg tablet 10 - 40 mg PO DAILY #12 tab 07/15/20 11/17/21 prednisone 20 mg tablet 40 mg PO DAILY #10 tab 10/15/20 11/17/21 fluticasone propionate 50 1 spray NS DAILY #1 canister 01/14/21 11/17/21 mcg/actuation nasal spray,suspension (Flonase Allergy Relief) furosemide 40 mg tablet 80 mg PO DAILY #90 tab 01/14/21 11/17/21 metformin 1,000 mg tablet 1,000 mg PO BID #180 tab 01/14/21 11/17/21 ketoconazole 2 % topical cream 1 applic TOPICAL BID PRN #60 g 01/30/21 11/17/21 sulfamethoxazole 800 1 tab PO BID #14 tab 06/19/21 11/17/21 mg-trimethoprim 160 mg tablet (Bactrim DS) betamethasone, augmented 0.05 % 1 applic TOPICAL BID PRN #60 ml 06/20/21 11/17/21 lotion buspirone 5 mg tablet 10 mg PO TID PRN #60 tab 08/25/21 11/17/21 tizanidine 2 mg tablet 2 mg PO Q8H PRN #20 tab 10/07/21 11/17/21 alclometasone 0.05 % topical cream 1 applic TOPICAL BID PRN #45 g 10/16/21 11/17/21 doxycycline hyclate 100 mg capsule 100 mg PO BID #14 cap 11/17/21 prednisone 20 mg tablet 40 mg PO DAILY #10 tab 11/17/21 Previous Rx's Medication Instructions Recorded aspirin 325 mg tablet 325 mg PO DAILY #0 tab-cap 06/22/15 triamcinolone acetonide 0.1 % 1 applic TOPICAL BID PRN #30 gm 12/22/18 topical cream clotrimazole 1 % topical cream 1 applic TOPICAL TID #30 gm 02/20/19 nystatin 100,000 unit/gram topical 1 applic TP BID PRN #30 gm 02/20/19 powder ketotifen fumarate 0.025 % (0.035 1 drp OP BID PRN #5 ml 04/27/19 %) eye drops (Zaditor) montelukast 10 mg tablet 10 mg PO DAILY #30 tab 01/29/20 (Singulair) albuterol sulfate 90 mcg/actuation 1 - 2 puff INHALATION Q6H PRN #1 06/06/20 aerosol inhaler (ProAir HFA) inhaler citalopram 20 mg tablet (Celexa) 20 mg PO DAILY #90 tab-cap 06/06/20 ipratropium 0.5 mg-albuterol 3 mg 3 ml IH QID #180 ml MDD 4 nebs 06/06/20 (2.5 mg base)/3 mL nebulization soln prednisone 50 mg tablet 50 mg PO DAILY #4 tab 07/08/20 prednisone 20 mg tablet 10 - 40 mg PO DAILY #12 tab 07/15/20 prednisone 20 mg tablet 40 mg PO DAILY #10 tab 10/15/20 fluticasone propionate 50 1 spray NS DAILY #1 canister 01/14/21 mcg/actuation nasal spray,suspension (Flonase Allergy Relief) furosemide 40 mg tablet 80 mg PO DAILY #90 tab 01/14/21 metformin 1,000 mg tablet 1,000 mg PO BID #180 tab 01/14/21 ketoconazole 2 % topical cream 1 applic TOPICAL BID PRN #60 g 01/30/21 sulfamethoxazole 800 1 tab PO BID #14 tab 06/19/21 mg-trimethoprim 160 mg tablet (Bactrim DS) betamethasone, augmented 0.05 % 1 applic TOPICAL BID PRN #60 ml 06/20/21 lotion buspirone 5 mg tablet 10 mg PO TID PRN #60 tab 08/25/21 tizanidine 2 mg tablet 2 mg PO Q8H PRN #20 tab 10/07/21 alclometasone 0.05 % topical cream 1 applic TOPICAL BID PRN #45 g 10/16/21 doxycycline hyclate 100 mg capsule 100 mg PO BID #14 cap 11/17/21 prednisone 20 mg tablet 40 mg PO DAILY #10 tab 11/17/21 Allergies Allergy/AdvReac Type Severity Reaction Status Date / Time hydrocodone Allergy Severe ITCHING Verified 11/17/21 11:09 morphine Allergy Mild PRURITIS Verified 11/17/21 11:09 oxycodone Allergy Mild ITCHING Verified 11/17/21 11:09 General Stated Complaint: RespSymp REUBEN: 3 Review of Systems All systems reviewed & are unremarkable except as noted in HPI and below PFSH All Active Problems (Updated 11/17/21 @ 15:00 by INESSA Galicia) Low back pain (Acute) Chest wall pain (Acute) Dysphagia (Acute) Conductive hearing loss, external ear (Acute) Impacted cerumen, left ear (Acute) Ulcer of right lower extremity (Acute) Bronchitis (Acute) Cellulitis of leg, right (Acute) Fever (Acute) Thyroid enlargement (Acute) Mixed conductive and sensorineural hearing loss of both ears (Acute) Allergic sinusitis (Acute) Hyperglycemia (Acute) DAVID (obstructive sleep apnea) (Chronic) Community acquired pneumonia (Acute) COPD exacerbation (Acute) Sprain of scapholunate ligament (Acute 03/21/19) Allergic conjunctivitis (Acute) Wrist pain, right (Acute) Chronic obstructive pulmonary disease (Chronic) Chest pain (Acute 07/23/14) History of fasciotomy (Acute) Pleural effusion on right (Acute 05/03/14) Status post total bilateral knee replacement (Acute) Discharge planning issues (Acute) Chronic respiratory failure with hypoxia and hypercapnia (Chronic) Grief at loss of child (Acute) Depression (Chronic) Varicose veins of lower extremity (Chronic) Low back pain with sciatica (Chronic 05/03/14) CT at [facility] L34 spinal stenosis Advance directive on file (Acute) DVT prophylaxis (Acute) Sensorineural hearing loss, bilateral (Chronic 08/29/13) Morbid obesity (Acute 04/05/13) Knee pain, bilateral (Chronic 07/23/14) s/p bilat TKR (left infected with mult surg and decreased mobility) Goiter, nontoxic, 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 PFTs 09/2012 showed an FEV1 of 60% with improvement to 80% with bronchodilator, thought to be severe restrictive disease. Depressive disorder (Chronic) Insomnia with sleep apnea (Chronic) Obstructive sleep apnea syndrome (Chronic) Chronic headaches (Chronic) Recent Neurology consult for possible papilledema. Urinary incontinence (Chronic) On Detrol Recurrent UTI (Chronic) History of Surgical Procedure (Chronic) a. Right and left toal knee replacements. b. Left knee has been repeatedly operated on with slava surgies, three replacements. Pneumonia (Acute) finish steroids and antibiotics Right ventricular dysfunction (Chronic) Medical History Allergic sinusitis Chronic headaches Recent Neurology consult for possible papilledema. Chronic obstructive lung disease Quit smoking 2010. PFTs 09/2012 showed an FEV1 of 60% with improvement to 80% with bronchodilator, thought to be severe restrictive disease. Depressive disorder Goiter, nontoxic, multinodular (05/03/14) Grief at loss of child Hypercapnic respiratory failure Hyperglycemia Insomnia with sleep apnea Knee pain, bilateral (07/23/14) s/p bilat TKR (left infected with mult surg and decreased mobility) Low back pain with sciatica (05/03/14) CT at [facility] L34 spinal stenosis Morbid obesity (04/05/13) Obstructive sleep apnea syndrome Pulmonary embolism Recurrent UTI Right ventricular dysfunction Sensorineural hearing loss, bilateral (08/29/13) Urinary incontinence On Detrol Varicose veins of lower extremity Wrist pain, right Surgical History Fasciotomy, Foot (~1996) LEFT History of Surgical Procedure a. Right and left toal knee replacements. b. Left knee has been repeatedly operated on with slava surgies, three replacements. Replacement of total knee joint Bilateral; left-became gcmdpoar-pvgrpty-cjpqqjgu surgeries Family History Mother Diabetes Personal history of malignant neoplasm LUNG Father Personal history of malignant neoplasm BRAIN Grandfather No problems noted. Grandfather No problems noted. Grandmother No problems noted. Grandmother No problems noted. Social History Smoking/Tobacco Use Status: Former Tobacco Use Smoking risk assessment performed?: Yes Alcohol Intake: never Drug use: Never Substance use type: does not use Current gender identity: female Do you feel safe at home: Yes Do you feel safe in your relationship?: Yes Exam Const General: cooperative, comfortable and no acute distress Eyes Conjunctivae: conjunctivae normal Chest Chest: normal inspection of the chest Resp Effort & Inspection: normal respiratory effort Auscultation: wheezes Cardio Rate: regular rate Rhythm: regular rhythm Skin General skin exam: no rashes or lesions noted Neuro General: patient alert and patient oriented x3 Extrem Other: Lymphedema noted bilaterally, 2+ edema bilateral lower extremity Course Vital Signs Vital signs: Vital Signs Temperature 36.7 C 11/17/21 11:06 Pulse 75 11/17/21 11:06 Respiratory Rate 24 11/17/21 11:06 Blood Pressure 133/62 11/17/21 11:06 Pulse Oximetry 92 11/17/21 11:06 Temperature 36.7 C 11/17/21 11:06 Temperature Source Tympanic 11/17/21 11:06 Pulse 75 11/17/21 11:06 Respiratory Rate 24 11/17/21 11:06 Respiratory Effort Labored 11/17/21 11:10 Respiratory Depth Normal 11/17/21 11:10 Blood Pressure 133/62 11/17/21 11:06 Blood Pressure Position Sitting 11/17/21 11:06 Pulse Oximetry 92 11/17/21 11:06 Oxygen Delivery Method Nasal Cannula 11/17/21 11:06 Oxygen Flow Rate 3 11/17/21 11:06 Pain Level 0 11/17/21 11:06
[2021-11-17 12:32] LABS: Source Nasal/Nares
--- NOTE | 2021-11-17 12:32 | NUR.NOTE ---
was unable to establish IV access on pt, ultra sound IV will be used to establish IV. WILFREDO
--- NOTE | 2021-11-17 13:03 | NUR.NOTE ---
pt was not happy with RN care, I was told that i would need to be replaced after waiting 20-30 minutes for her to move from wheel chair to stretcher. she was resistant to move to the stretcher i am more comfortable in wheel chair. 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 RN had a lot of tasks to accomplish with pt but she was being resistant to most. after getting her settled and in strecher and completing EKG, RN began to look for IV access and pt refused IV in her AC. RN then left room to have another Nurse try to get IV access with ultra sound. she then continued to refuse AC acces and IV was not able to be established. proivder notified and meds were switched to PO. WILFREDO
[2021-11-17] MEDS: Albuterol/Ipratropium 3 ML UPD VIAL UPD (13:12)
[2021-11-17] MEDS: predniSONE 20 MG TAB 40 MG PO (13:12)
--- NOTE | 2021-11-17 13:28 | NUR.NOTE ---
lab was called to do patient lab draw due to inability to access IV site. during lab draw pt was rude to laborer adjustable steel joist, telling him he wont beable to get the labs the way he is drawing the blood, its to slow it wont work, the laborer adjustable steel joist was calm and continued to tell her that it was still flowing and he was going to cotinue to draw to get enough blood for the tubes needed. pt continued to say rude remarks to laborer adjustable steel joist and then told him to stop that he couldnt do it anymore. laborer adjustable steel joist stopped drawing and left without sufficient amount of blood. WILFREDO
[2021-11-17 13:41] LABS: Abs Immature Grans 0.01 10^3/uL (0.0-0.06); Absolute Basophil Count 0.03 10^3/uL (0.0-0.2); Absolute Eosinophil Count 0.23 10^3/uL (0.0-0.7); Absolute Lymphocyte Count 1.98 10^3/uL (1.2-3.4); Absolute Monocyte Count 0.89 10^3/uL (0.1-0.8); Absolute Neutrophil Count 5.11 10^3/uL (1.2-6.7); Basophils % 0.4; Eosinophils % 2.8; HCT 42.9 % (36.0-46.0); HGB 13.8 g/dL (11.2-15.7); Immature Grans % 0.1; MCH 28.5 pg (27.0-33.0); MCHC 32.2 % (32.0-36.0); MCV 88.6 fL (80-95); MPV 11.3 fL (8.0-11.0); Monocytes % 10.8; Neutrophils % 61.9; Nucleated RBC 0 %; RBC 4.84 10^6/uL (3.93-5.22); RDW 13.8 % (11.7-14.6); RDW-SD 44.9 fL; WBC 8.25 10^3/uL (4.4-10.8)
[2021-11-17 13:45] LABS: ALT 28 U/L (14-59); AST 25 U/L (15-37); Alkaline Phosphatase 73 U/L (46-116); Anion Gap 8.1 mmol/L (3-11); BUN 15 mg/dL (7-18); Bilirubin, Total 1.6 mg/dL (0.2-1.0); CO2 25.9 mmol/L (21.0-32.0); CREATININE 0.5 mg/dL (0.55-1.02); Chloride 102 mmol/L (98-107); Glucose 98 mg/dL (74-106); NT-proBNP 120 pg/mL (<300); Potassium 4.3 mmol/L (3.5-5.1); Sodium 136 mmol/L (136-145); Total Protein 7.5 g/dL (6.4-8.2); Troponin I < 50 ng/L (<or=60)
[2021-11-17 13:47] LABS: COVID-19 PCR Negative (Negative)
[2021-11-17 13:56] LABS: Platelet Count 215 10^3/uL (130-400)
[2021-11-17 14:00] VITALS: BP 132/77; PULSE 88; RESP 18; O2SAT 94
--- NOTE | 2021-11-17 14:45 | DI.RAD_ITS ---
Exam(s) XR PORTABLE CHEST AP EXAM: XR PORTABLE CHEST AP CLINICAL HISTORY: shortness of breath TECHNIQUE: 2D digital imaging was performed of the chest. One image was obtained. An AP view was ob tained. COMPARISON: CR,XR XR PORTABLE CHEST AP from 05/05/2021 FINDINGS: Examination limited by patient body habitus. MEDIASTINUM: Normal. HEART: Normal. PULMONARY VASCULATURE: Normal. LUNGS: Streaky infiltrates are seen in the lung bases, right greater than left. PLEURAL SPACE: No pleural effusion or pneumothorax. BONE:Within normal limits for the patient's age. OTHER FINDINGS:Normal. IMPRESSION: Streaky infiltrates in the lung bases which may reflect atelectasis, scarring or pneumonia. Please c orrelate clinically. DATA REPOSITORY: RADIATION DOSE DELIVERED:
--- NOTE | 2021-11-17 15:43 | NUR.NOTE ---
pt eloped before getting results. WILFREDO
== END 2021-11-17 15:45 | disposition left against medical advice (07) ==
LOC: RED 10:56 → ER 11:04
PROVIDERS: Emergency Provider Physician Assistant; PCP Family Medicine
DX: J44.1 Chronic obstructive pulmonary disease with (acute) exacerbation (principal); Z53.29 Procedure and treatment not carried out because of patient's decision for other reasons; R06.02 Shortness of breath; R91.8 Other nonspecific abnormal finding of lung field
CPT/HCPCS: 80053; 87635; 93005; 99283; 99284; 71045; 83880; 84484; 85025; 93010; J7512; J7620

== ENCOUNTER 2021-12-01 01:48 | Outpatient (CLI) | payer MEDICARE, SELFPAY | END 2021-12-01 01:49 | disposition home or self-care (01) | LOC: LBO 01:48 | PROVIDERS: PCP Family Medicine; Visit Provider Family Medicine ==

== ENCOUNTER 2021-12-04 02:08 | Outpatient (CLI) | payer MEDICARE, SELFPAY ==
--- OUTSIDE RECORDS SUMMARY | 2021-12-04 02:09 | XMS_ITS ---
:1955 Author Care Team Providers Name Role Phone [facility] Primary Care Provider [phone] CYRIL CERNA MD Primary Care Provider [phone] Allergies Code Code System Name Reaction Severity Status Onset 5489 RxNorm Hydrocodone ? ? Active ? Iodinated ? ? Active ? Contrast Media 7052 RxNorm Morphine ? ? Active ? 7801 RxNorm Oxycodone ? ? Active ? Medications [...] Chronic Obstructive Lung Disease Active 07/19/2018 ? Chronic Back Pain Active 07/19/2018 ? Fatigue Active 07/19/2018 ? Edema Active 07/19/2018 ? Snoring Active 07/19/2018 ? Nocturnal Enuresis Active 07/19/2018 ? Hypoxia Active 07/19/2018 ? Knee Pain Active 07/19/2018 ? Insomnia Active 07/20/2018 ? Procedures Date Name Performed by ? 06/29/2019 LDCT, Chest, for Lung Cancer Xray [facility] Screening [address] [place], [place] [address] (Work Place) Results Lab [...]
[2021-12-04 14:05] LABS: TSH (W/Ref FT4) 0.04 uIU/mL (0.36-3.74)
[2021-12-04 14:22] LABS: FREE T4 1.91 ng/dL (0.76-1.46)
== END 2021-12-04 02:09 | disposition home or self-care (01) ==
LOC: LBO 02:08
PROVIDERS: PCP Family Medicine; Visit Provider Family Medicine
DX: E03.9 Hypothyroidism, unspecified (principal)
CPT/HCPCS: 36415; 84439; 84443

== ENCOUNTER 2022-01-15 01:24 | Outpatient (CLI) | payer MEDICARE, MEDICAID, SELFPAY ==
--- OUTSIDE RECORDS SUMMARY | 2022-01-15 01:26 | XMS_ITS ---
:1955 Author Care Team Providers Name Role Phone [facility] Primary Care Provider [phone] CYRIL CERNA MD Primary Care Provider [phone] Allergies Code Code System Name Reaction Severity Status Onset 5489 RxNorm Hydrocodone ? ? Active ? Iodinated Contrast Media ? ? Activ e ? 7052 RxNorm Morphine ? ? Active ? 7802 RxNorm Oxycodone ? ? Active ? Medications [...] ? Not available doxycycline hyclate 100 mg capsule Completed ? 06/29/2019 DuoNeb 2.5 mg-0.5 mg/3 mL solution for nebulization Active ? Not available Inhale 3 mL 4 times a day by nebulization route. Flexeril 5 mg tablet Completed ? 06/29/2019 Take 1 tablet as needed by oral route. fluticasone propionate 50 mcg/actuation nasal Active ? Not available spray,suspension furosemide 20 mg tablet Active ? [...] 100-10mg/5ml oral syrup-Q8hrs PRN Incruse Ellipta 62.5 mcg/actuation powder for Active ? Not available inhalation ipratropium 0.5 mg-albuterol 3 mg (2.5 mg Active ? Not available base)/3 mL nebulization soln levofloxacin 500 mg tablet Completed ? 06/29 levofloxacin 750 mg tablet Completed ? 06/29 metformin 500 mg tablet Active ? Not avai lable metolazone 2.5 mg tablet Completed ? 019 Take 1 tablet every day by oral route. nystatin powder Active ? Not available 1 thin layer BID PRN Nystop 100,000 unit/gram topical powder Completed ? 06/29/2019 pantoprazole 40 mg tablet,delayed release Completed ? 06/29/2019 potassium chloride ER 10 mEq capsule,extended Active ? Not available release prednisone 10 mg tablet Completed ? 06/29/20 prednisone 20 mg tablet Completed ? 06/29/20 Symbicort Active 06/15/2019 Not available Symbicort 160 mcg-4.5 mcg/actuation HFA aerosol Completed ? 06/29/2019 inhaler topiramate 50 mg tablet Active ? Not avai lable Take 1 tablet twice a day by oral route. triamcinolone acetonide 0.1 % topical cream Active ? Not available Ventolin HFA 90 mcg/actuation aerosol inhaler Active ? Not available Wellbutrin XL 150 mg 24 hr tablet, [...] ? 06/29/2019 LDCT, Chest, for Lung Cancer Screening X ray [facility] [address] [place], [place] [address] (Work Place) Results Lab Results None recorded. Past Encounters None recorded. Social History Tobacco Smoking Status Former Smoker Notes: quit in 2006 Vaccine List Vaccine Type influenza, injectable, quadrivalent 06/15/2019 Plan of Care Reminders Provider Appointments None recorded. ? ? Lab None recorded. ? ? Referral None recorded. ? ? Procedures None recorded. ? ? Surgeries None recorded. ? ? Imaging None recorded. ? ? Vitals 06/29/2019 01:00PM New Patient 46 Height Weight BMI Blood Pressure 161.29 cm 195.5 kg 75.2 kg/m2 136/74 mm[Hg] 09/12/2018 10:00AM Office 30 Height Blood Pressure 161.29 cm 120/72 mm[Hg] 07/20/2018 09:15AM New Patient 46 Height Weight BMI Blood Pressure 161.29 cm 185.97 kg 71.5 kg/m2 146/88 mm[Hg]
[2022-01-15 14:51] LABS: TSH (W/Ref FT4) 0.17 uIU/mL (0.36-3.74)
[2022-01-15 15:10] LABS: FREE T4 1.91 ng/dL (0.76-1.46)
== END 2022-01-15 01:25 | disposition home or self-care (01) ==
LOC: LBO 01:24
PROVIDERS: PCP Family Medicine; Visit Provider Family Medicine
DX: E03.9 Hypothyroidism, unspecified (principal)
CPT/HCPCS: 36415; 84439; 84443

== ENCOUNTER 2022-03-05 02:13 | Outpatient (CLI) | payer MEDICARE, MEDICAID, SELFPAY ==
--- OUTSIDE RECORDS SUMMARY | 2022-03-05 02:15 | XMS_ITS | Encounter Summary ---
:1955 Author Organization [facility] [place] [address] Care Team Providers Name Role Phone Alphonso Murphy MD Primary Care Provider [phone] Reason for Referral Consultation (Urgent) - Closed Specialty Diagnoses / Procedures Referred By Contact Refer red To Contact Dermatology Diagnoses Venous stasis ulcer of right calf limited to breakdown of skin, unspecified whether varicose veins present Amy Bhatia APRN [facility] Dermatology [facility] [address] [place] [address] [place] [address] Referral ID Status Reason Start Date Expiration Date Visits V isits Requested Authorized [id number] Closed Consult, 05/11/2021 05/11/2022 1 1 Test & Treat Encounter Details Date Type Department Care Team Description 05/11/2021 Office Visit Wound Care at [facility] Venous stasis ulcer of right calf limited to breakdown of skin, unspecified whether varicose veins present (Primary Dx); [facility]3] DEISY Magana Lymphedema of both lower extremities; [facility] Venous insufficiency of both lower extremities [facility] [address] [facility] [place], [place] [id number] [phone] Social History Tobacco Use Types Packs/Day Years Used Date Former Smoker Cigarettes 3 40 Quit: 10/08/19 11 Smokeless Tobacco: Never Used Alcohol Use Standard Drinks/Week Comments No 0 (1 standard drink = 0.6 oz pure alcoho l) Sex Assigned at Date Recorded Not on file documented as of this encounter Last Filed Vital Signs Vital Sign Reading Time Taken Comments Blood Pressure 158/78 05/11/2021 1:36 PM EDT Pulse 85 05/11/2021 1:36 PM EDT Temperature 36.6 ??C (97.8 ??F) 05/11/2021 1:36 PM EDT Respiratory Rate 22 05/11/2021 1:36 PM EDT Oxygen Saturation 91% 05/11/2021 1:36 PM EDT Inhaled Oxygen Concentration - - Weight - - Height - - Body Mass Index - - documented in this encounter Patient Instructions Patient InstructionsAmy Bhatia APRN - 05/11/2021 1:45 PM EDT Post Visit Instructions (Home Health Agency and/or patient): Change dressing every 2 days or sooner for 50% or greater strike through drainage. ??Stop the Mepilex AG dressing 1. Remove old dressing. 2. Cleanse wound with wound cleanser or normal saline and gauze. 3. Apply skin prep to periwound skin. 4. Cover wound bed with Hydrofera Blue Ready non border and secure with Kerlix gauze and Medipore tape. 5. Apply a double layer of Dermafit Size G to LLE ?? Monitor for signs of infection which may include: Fever Sweats Chills Nausea, Vomiting or Diarrhea Unexplained increase in Blood Glucose levels ?? At or around the wound site: Increased pain Swelling or edema Redness Warmth ?? Purulent drainage (thick yellow/green drainage) Malodor ?? [facility] with any above symptoms Tuesday- Tuesday 8:00AM-4:30PM ([phone]). If weekends / holidays / evenings, please report to the Emergency Department. ?? High Protein foods: try to eat 5-6 servings of these per day Beef, chicken, fish Beans, Lentils, peanut butter Latvian and regular yogurt Cheese, eggs ?? Boost, Ensure shakes Protein powder in a smoothie of your choice ? documented in this encounter Progress Notes Amy Bhatia APRN - 05/11/2021 1:45 PM EDT Images from the original note were not included. [facility] Progress Note Reason for Visit: Ms. Masterson is here today for F/U visit R/T RLE venous ulcer in setting of venous insufficiency and Lymphedema. HPI: Radha Masterson is a 66 y.o. female referred by Lisa Singh MD, for evaluation of RLE venous ulcers is setting of lymphedema and venous insufficiency. The open area to RLE began February 2021 as water blisters. The blisters ruptured and began draining. She was seen at a walk in clinic near her home and placed on an oral antibiotic which she completed. The drainage has persisted from her leg and is painful. She has self treated with a topical antibiotic and a light dressing. She does wear compression stockings. 03/03/21 She is S/P total thyroidectomy for large multinodular goiter. 04/05/21 to 04/08/21: S/P Hospitalization for cellulitis RLE. Treated with IV antibiotics (Vancomycin)then discharged to home on Cefazolin. 05/05/21 Seen in the ED [place] for recurring infection to RLE and completed another course of oral antibiotics. VNA: [facility] initiated 04/01/21 Patient Active Problem List Diagnosis Code ??? Pleural effusion on right J90 ??? Musculoskeletal chest pain R07.89 ??? Pulmonary hypertension I27.20 ??? DAVID treated with BiPAP G47.33 ??? Dependence on continuous supplemental oxygen Z99.81 ??? Anxiety F41.9 ??? Intertrigo L30.4 ??? Grief at loss of child F43.21, Z63.4 ??? Depression F32.9 ??? Vitamin D deficiency E55.9 ??? BMI greater than 70 E66.01, Z68.45 ??? S/P total thyroidectomy E89.0 ??? Lymphedema of both lower extremities I89.0 ??? Venous insufficiency of both lower extremities I87.2 ??? Venous stasis ulcer of right calf limited to breakdown of skin I83.012, L97.211 ??? Cellulitis of right leg L03.115 ??? Cellulitis L03.90 Diagnostics: JESUS ALBERTO's:04/30/21 Referring Physician: AMY BHATIA ?? Indications: right lower extremity anterior dobson wound, venous insufficiency, lymphedema, ? arterial disease prior to compression ?? Diabetes mellitus: no ?? ICD10 Diagnosis Code: I87.2, L97.211, I89.0, I83.012 ?? Findings: ?? Right ?Pressure (mm Hg) ?? JESUS ALBERTO ??Waveform ?? Brachial Artery ?128 ? Dorsalis Pedis (Ankle) Artery ?138 ? 1.00 ??Triphasic ?? Posterior Tibial (Ankle) Artery ??137 ? 0.99 ??Triphasic ? Left ? Pressure (mm Hg) ?? JESUS ALBERTO ??Waveform ?? Brachial Artery ?138 ? Dorsalis Pedis (Ankle) Artery ?128 ? 0.93 ??Triphasic ?? Posterior Tibial (Ankle) Artery ??152 ? 1.10 ??Triphasic ? Interpretation: ?? RIGHT: No significant lower extremity arterial occlusive disease identifiable at rest. Normal ankle/brachial pressure ratios and ankle Doppler waveforms. ?? LEFT: No significant lower extremity arterial occlusive disease identifiable at rest. Normal ankle/brachial pressure ratios and ankle Doppler waveforms. ?? Comparison: No previous study in our vascular lab database for comparison. ?? 04/08/21 WBC 4.0 - 9.5 x10(3)/mcL 8.8 RBC 4.00 - 5.21 x10(6)/mcL 4.44 Hemoglobin 11.7 - 15.5 gm/dL 12.7 Hematocrit 35.7 - 45.8 % 39.2 Glucose Lvl 65 - 199 mg/dL 113 Comment: Diabetes: >=200 mg/dL plus symptoms BUN 8 - 18 mg/dL 16 Creatinine 0.70 - 1.20 mg/dL 0.80 Sodium 135 - 145 mmol/L 138 Potassium 3.5 - 5.0 mmol/L 3.8 Review Of Systems: Ms. Masterson is here today for F/U visit R/T RLE venous ulcers,weeping in setting of venous insufficiency and lymphedema. She is S/P visit in ED the week of 05/05/21 once again for elevated temp and increased drainage from RLE wound. She was placed on another course of oral antibiotics. Hyperbaric oxygen was recommended toher after her last visit in the ED at [facility]. She wears a compression stockings to LLE and was seen by the Lymphedema specialist today in PT. Dermafit continues to RLE. She continues to have a large amount of drainage from RLE wound and notes it is green tinged at times. She reports a stabbing pain at times to area of wound RLE. Denies constitutional symptoms of fever, chills. CV: She reports SOB and wears nasal cannula O2 at 3l/min, denies chest pain GI: denies N/V, diarrhea : Denies voiding issues Diet: Appetite good Wound care:Mepilex AG non border to RLE Neuropathy: Denies Pain: Present to anterior RLE where open area, weeping is present PE: BP-158/78 P-85 Temp-97.8 02 Sat-94% General: pleasant, in NAD, nasal cannula O2 in place. Mobility:Arrived via motorized wheelchair Edema: Lymphedema to BLE Right foot warm to touch. Varicosities: Not visible Hemosiderin staining: Present Stasis dermatitis:No Callus:No Nails: Thickened Periwound: Intact Wound bed:Weeping serous fluid, erythema Exudate:Serous, yellow tinged Odor: None Right Calf: 68.0 cm Right Ankle: 40 cm Anterior RLE Wound location Wound bed 05/11/21 04/13/21 Measurement Anterior RLE Erythema, weeping 18.0cm L x 18.5cm W x <0.1cm D 12.5cm L x 13.6 cm W x ,0.1cm D 12.0cm L x 10.cm W Wound treatment: Wound Location:Anterior RLE Cleansed wound with NS and Vasche using a Debri soft pad Analgesia:None Conservative sharp debridement: No debridement today Patient tolerated procedure well. Dressing: Hydrofera Blue Ready to open area RLE secured with Kerlix Dermafit double layer - Size G to RLE Assessment/ Plan: Radha Masterson is a 66 y.o. female here today for F/U visit R/T evaluation of RLE venous ulcers is setting of lymphedema and venous insufficiency. The open area to RLE began February 2021 as water blisters. The blisters ruptured and began draining. She was seen at a walk in clinic near her home and placed on an oral antibiotic which she completed. The drainage has persisted from her legand is painful. She is S/P hospitalization 04/05/21 to 04/08/21 for cellulitis RLE. She was seen in the ED [facility] 05/05/21 for elevated temperature and increased drainage RLE. Shecompleted Cefazolin on 04/30/21. She has a pattern in elevated temp, drainage RLE-placed on antibiotics each time. Once antibiotics completed, symptoms return in several days. Recent ABIs with no significant LEAD. We discussed a referral to Dermatology and she agreed to same. An urgent referral was made to Dermatology given th recurring infection.Will hold compression R/T concerns of recurring infection. She wears compression to LLE per the Lymphedema specialist in PT. Wound care was changed to Hydrofera Blue ready for antimicobial effect. Continue VNA services for wound assessment and dressing changes. Verbal and written wound care instructions were provided. She will call with any questions or concerns. Will plan F/U 1 week wound center. She agreed to POC. She knows to be seen sooner with any new or worsening symptoms. Follow up: 1 week Instructions: Post Visit Instructions (Home Health Agency and/or patient): Change dressing every 2 days or sooner for 50% or greater strike through drainage. ??Stop the Mepilex AG dressing 1. Remove old dressing. 2. Cleanse wound with wound cleanser or normal saline and gauze. 3. Apply skin prep to periwound skin. 4. Cover wound bed with Hydrofera Blue Ready non border and secure with Kerlix gauze and Medipore tape. 5. Apply a double layer of Dermafit Size G to LLE ?? Monitor for signs of infection which may include: Fever Sweats Chills Nausea, Vomiting or Diarrhea Unexplained increase in Blood Glucose levels ?? At or around the wound site: Increased pain Swelling or edema Redness Warmth ?? Purulent drainage (thick yellow/green drainage) Malodor ?? [facility] with any above symptoms Tuesday- Tuesday 8:00AM-4:30PM ([phone]). If weekends / holidays / evenings, please report to the Emergency Department. ?? High Protein foods: try to eat 5-6 servings of these per day Beef, chicken, fish Beans, Lentils, peanut butter Latvian and regular yogurt Cheese, eggs ?? Boost, Ensure shakes Protein powder in a smoothie of your choice ? documented in this encounter Plan of Treatment Scheduled Referrals Name Type Priority Associated Diagnoses Order S chedule Referral to Outpatient Referral Routine Venous stasis ulcer O rdered: Dermatology of right calf 05/11/2021 limited to breakdown of skin, unspecified whether varicose veins present documented as of this encounter Goals Goal Patient Goal Associated Recent Patient-Stated? Author Type Problems Progress beverages Lifestyle On track Hattie Adams, (09/21/[address] 12:35 PM EST) Note: Formatting of this note might be d ifferent from the original. 2% milk is fine Continue not bringing the mountain dew i nto the house- this is not going to work well after surgery Don't bring a drink to meals with you You might set an alarm for 11:30am and 4 :30pm to remind yourself not to drink for 30 minutes before the meal Set a timer for 30 minutes after you fin randee your meal to remind yourself nnot to drink for 30 minutes after the meal Work on sipping water throughout the day Write down how much water you drink thro ughout the day (figure out how much water is in that bottle) Aim for at least 48 ounces in the day mac&cheese Lifestyle On track (09/21/2019 12:35 PM EST) N o Dimple Adams RD Note: Formatting of this note might be d ifferent from the original. Can have once or twice a week in 1/2 cup portions Put protein (3 or 4 ounces) and veggies (1 or 2 cups) on the plate as well Focus on protein Lifestyle On track (09/21/2019 12:[address] PM [address] EST) Note: Formatting of this note might be d ifferent from the original. - eat the protein first - always a protein on your plate - fish is a healthy choice. Choose liver wurst less often - once a week. meal timing Lifestyle On track (09/21/2019 12:34 PM EST) Dimple Augustin RD Note: Formatting of this note might be d ifferent from the original. Continue working on 3 meals in a day dessert Lifestyle On track (09/21/2019 12:35 PM EST) N o Dimple Adams RD Note: Formatting of this note might be d ifferent from the original. - 1/2 cup portion once a week is reasona ble - choose what you like, just have at a r easonable frequency and portion continue writing down Lifestyle On track (09/21/[address] your foods 12:35 PM EST) Note: Formatting of this note might be d ifferent from the original. - use the notebook - can you add some calorie information: Either google or use a book such as QM Power (available on [employer]) OR Perfect (if you're using a package, it will have calorie and protein info on the back) - The other thing to write down would be grams of protein - 1500 is a good starting point for a ca jeffrey goal documented as of this encounter Visit Diagnoses Diagnosis Venous stasis ulcer of right calf limite d to breakdown of skin, unspecified whether varicose veins present - Primary Lymphedema of both lower extremities Venous insufficiency of both lower extre mities documented in this encounter Care Teams Animal Pathologist Relationship Specialty Start Date End Date Alphonso Murphy MD PCP - General Family Medicine 02/19/[address] [place] [address] documented as of this encounter
--- OUTSIDE RECORDS SUMMARY | 2022-03-05 02:15 | XMS_ITS | Encounter Summary ---
:1955 Author Organization [facility] [place] [address] Care Team Providers Name Role Phone Alphonso Murphy MD Primary Care Provider [phone] Encounter Details Date Type Department Care Team Description 01/27/2022 Orders Only General Surgery at [facility] [place] [address] Social History Tobacco Use Types Packs/Day Years Used Date Former Smoker Cigarettes 3 40 Quit: 10/08/19 11 Smokeless Tobacco: Never Used Alcohol Use Standard Drinks/Week Comments No 0 (1 standard drink = 0.6 oz pure alcoho l) Sex Assigned at Date Recorded Not on file documented as of this encounter Progress Notes Vianca Nelson RN - 01/27/2022 9:51 AM EDT Pt is s/p thyroidectomy for goiter 03/03/[address] Singh. She leaves a vm stating she still has pressure in her throat and feels cold. Return call to pt: no answer, left vm asking her to call us back to discuss her symptoms. documented in this encounter Plan of Treatment Not on filedocumented as of this encounter Goals Goal Patient Goal Associated Recent Patient-Stated? Author Type Problems Progress beverages Lifestyle On track Hattie Adams (09/21/[address] 12:35 PM EST) [...] Lifestyle On track (09/21/2019 12:35 PM EST) Dimple Darden RD Note: Formatting of this note might [...] Lifestyle On track (09/21/2019 12:35 PM EST) Dimple Darden RD Note: Formatting of this note might be d ifferent from the original. - 1/2 cup portion once a week is reasona ble - choose what you like, just have at a r easonable frequency and portion continue writing down Lifestyle On track (09/21/2019 No Dimple Adams, RD your foods 12:35 PM EST) Note: Formatting of this note might be d ifferent from the original. - use the notebook - can you add some calorie information: Either google or use a book such as [employer]anceWorks (available on [employer]) OR [employer] (if you're using a package, it will have calorie and protein info on the back) - The other thing to write down would be grams of protein - 1500 is a good starting point for a ca jeffrey goal documented as of this encounter Visit Diagnoses Not on filedocumented in this encounter Care Teams Recording Engineer Relationship Specialty Start Date End Date Alphonso Murphy MD PCP - General Family Medicine 02/19/[address] [place] [address] documented as of this encounter
--- OUTSIDE RECORDS SUMMARY | 2022-03-05 02:15 | XMS_ITS | Encounter Summary ---
:1955 [place] [address] Care Team Providers Name Role Phone Alphonso Murphy MD Primary Care Provider [phone] Encounter Details Date Type Department Care Team Description 06/03/2021 Office Visit Dermatology at [facility] Huber Avalos MD Localized edema; [facility] Dermatitis [address] [place] [address] [facility] [phone] RD-DERMATOLOGY [place], [place] [address] (Wo rk) Social History Tobacco Use Types Packs/Day Years Used Date Former Smoker Cigarettes 3 40 Quit: 10/08/19 11 Smokeless Tobacco: Never Used Alcohol Use Standard Drinks/Week Comments No 0 (1 standard drink = 0.6 oz pure alcoho l) Sex Assigned at Date Recorded Not on file documented as of this encounter Progress Notes Nam Avalos MD - 06/03/2021 3:00 PM EDT Images from the original note were not included. DEPARTMENT OF DERMATOLOGY [facility] Provider: Nam Avalos MD Patient's preferred name Radha Preferred contact method for results [x]Phone []myD-H []Letter Detailed phone message OK? Yes Are there any other people with whom we may discuss your care? 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 Patient returns to clinic today for the follow-up of a wound. - The wound appears to get better and then get worse. Patient reports she has been using the betamethasone every time she wraps it. She reports she goes to wound care a few times a week and home healthre-wraps her leg twice a week. She notes the wound continues to drain. Tuesday when it was re-wrapped, patient notes it drained a yellow-green color and there was a smell. She notes some tenderness around the wound site. Last visit at [facility]: 05/14/2021 Last visit with this provider: Visit date not found Medications: Reviewed in eD-H Allergies: Reviewed in eD-H Skin Examination: Focused skin examination of the bilateral lower legs was normal with the exception of the findings below. Assessment/Plan #. Favor acute contact dermatitis in the setting of chronic lymphedema, improving - large pale pink plaque on the right anterior dobson, significantly improved form prior exam - no evidence of infection - Recommended daily augmented betamethasone ointment, followed by compression wrap. Continue currenttreatment until next visit. - continue with PT, lymphatic massage would be helpful if possible Figure 1 Photo(s) taken and charted with patient's verbal consent. Other: ??? N/A RTC: 07/03/2021 for wound care follow-up []Note routed to secretary specialist []Recall placed in scheduling system [x]Appointment scheduled at checkout Scribe attestation: Roxanne Decker has performed the documentation for this encounter in the presence of and acting as a scribe for Nam Avalos MD. I performed the above scribed service and agree with the accuracy of the documentation in this encounter. Reviewed and signed by: Nam Avalos MD Dermatology [facility] Patient seen and evaluated with staff supervisor pipe manufacture: Charlene Lozada MD Dermatology [facility] Charlene Lozada MD - 06/03/2021 3:00 PM EDT I directly supervised the Dermatology resident during this office visit. The resident presented the history and physical exam to me. I then saw and examined this patient with the resident. We reviewed the history and pertinent details and I confirmed the physical findings. I agree with the details of the history and physical exam as documented in the resident's note. CHARLENE LOZADA MD Staff Physician documented in this encounter Plan of Treatment Not on filedocumented as of this encounter Goals Goal Patient Goal Associated Recent Patient-Stated? Author Type Problems Progress beverages Lifestyle On track No Brilling, (09/21/2019 Dim[address] Hou, RD 12:35 PM EST) Note: Formatting of [...] continue writing down Lifestyle On track (09/21/[address] your foods 12:35 PM EST) Note: Formatting of this note might be d ifferent from the original. - use the notebook - can you add some calorie information: Either google or use a book such as CRAZE (available on [employer]) OR [employer] (if you're using a package, it will have calorie and protein info on the back) - The other thing to write down would be grams of protein - 1500 is a good starting point for a ca jeffrey goal documented as of this encounter Visit Diagnoses Diagnosis Localized edema Edema Dermatitis Contact dermatitis and other eczema, due to unspecified cause documented in this encounter Care Teams Chemist Instrumentation Relationship Specialty Start Date End Date Alphonso Murphy MD PCP - General Family Medicine 02/19/[address] [place] [address] documented as of this encounter
--- OUTSIDE RECORDS SUMMARY | 2022-03-05 02:15 | XMS_ITS | Clinical Summary ---
:1955 Author Organization [facility] Address [address] [id number] Care Team Providers Name Role Phone Alphonso Murphy MD Primary Care Provider [phone] Allergies Active Allergy Reactions Severity Noted Date Comments Iodine And Iodide rash Containing Products Morphine Rash Low 06/11/2014 Other reaction( s): PRURITIS Oxycodone Rash 06/11/2014 Red Blood Cells Other (See Comments) High 03/02/2021 Anti bodies-Difficult to Crossmatch DO NOT REMOVE Please contact the Blood Bank at [phone] for questions. Medications Medication Sig Dispensed Refills Start Date End Date Status ipratropium-albuterol Take 3 mLs by 0 12/02/2016 Active (DUONEB) 0.5 mg-3 nebulization every mg(2.5 mg base)/3 mL 6 hours as needed. Solution for Nebulization triamcinolone 2 times daily as 0 12/22/2018 Active (KENALOG) 0.1 % Cream needed. ALBUTEROL INHL Inhale 2 puffs 0 Active into the lungs daily. buPROPion Take 100 mg by 0 Activ e (WELLBUTRIN) 100 mg mouth 2 times Tablet daily. busPIRone (BUSPAR) 5 Take 10 mg by 0 06/09/2019 Active mg Tablet mouth 3 times daily. potassium chloride Take 20 mEq by 0 07/06/2019 Active (MICRO-K) 10 mEq mouth 2 times Capsule, Sustained daily. Release clotrimazole 3 times daily as 0 02/20/2019 Active (LOTRIMIN) 1 % Cream needed. fluticasone 1 spray by Each 0 05/25/2019 A ctive propionate (FLONASE) Nare route daily 50 mcg/actuation as needed. 04/06 [place], Suspension Patient states that she only takes this when needed NYSTOP Powder apply topically 0 02/20/2019 Active twice a day if needed citalopram (CELEXA) Take 20 mg by 0 Active 20 mg Tablet mouth daily. Mag 64 64 mg Tablet, TAKE 1 TABLET BY 0 08/12/2019 Active Delayed Release MOUTH ONCE DAILY (E.C.) ergocalciferol TAKE 1 CAPSULE BY 24 capsule 0 12/03/2019 Active (Vitamin D2) 50,000 MOUTH 2 TIMES A unit Capsule WEEK FOR 24 DOSES Additional Information Patient taking differently: 04/06 Patient states that she has not taken this in a while as the docs have not renewed her prescription, Reported on 04/06/2021 aspirin 325 mg Tablet Take 325 mg by mouth 0 Active Daily. ascorbic acid, vitamin C, Take by mouth. 0 Active (VITAMIN C) 1,000 mg Tablet silver sulfADIAZINE Apply topically 2 times 0 Active (SILVADENE) 1 % Cream daily as needed. montelukast (Singulair) 10 mg Take 10 mg by mouth 0 01/29/2020 Active Tablet nightly. OXYGEN-AIR DELIVERY SYSTEMS 2 L. 0 12/24/2014 Active MISC furosemide (Lasix) 40 mg Take 2 tablets by mouth 180 tablet 3 01/01/2021 Active TabletIndications: Pulmonary daily. hypertension, Chronic heart failure with preserved ejection fraction spironolactone (Aldactone) 25 Take 1 tablet by mouth 90 tablet 3 01/01/2021 Active mg Tablet daily. metFORMIN (GLUCOPHAGE) 1,000 Take 1,000 mg by mouth 0 01/15/2021 Active mg Tablet 2 times daily (with meals). calciTRIoL (Rocaltrol) 0.25 Take 1 capsule by mouth 60 tablet 3 03/04/2021 Active mcg Capsule 2 times daily. calcium carbonate (Tums) 200 Take 2 tablets by mouth 0 03/04/2021 Active mg calcium (500 mg) Tablet, 3 times daily. Chewable acetaminophen (Tylenol) 325 Take 2 tablets by mouth 30 tablet 1 04/08/2021 Active mg Tablet every 6 hours as needed for Pain or Fever. levothyroxine (Synthroid) 125 TAKE 2 TABLETS BY MOUTH 90 tablet 3 08/28/2021 Active mcg Tablet DAILY Active Problems Problem Noted Date Contact dermatitis-anterior RLE 06/08/2021 Cellulitis 04/19/2021 Cellulitis of right leg 04/06/2021 Lymphedema of both lower extremities 03/30/2021 Venous insufficiency of both lower extremities 021 Venous stasis ulcer of right calf limited to breakdown of skin 03/30/2021 S/P total thyroidectomy 03/19/2021 BMI greater than 70 12/08/2020 Vitamin D deficiency 09/11/2019 Overview: Level 12 (08/2019.) high dose vitamin D t wice weekly for 12 weeks prescribed. Dependence on continuous supplemental oxygen 9 Anxiety 08/13/2019 Intertrigo 08/13/2019 Grief at loss of child 08/13/2019 Overview: Son October 2018. Depression 08/13/2019 DAVID treated with BiPAP 05/21/2019 Pulmonary hypertension 05/18/2019 Musculoskeletal chest pain 10/08/2014 Pleural effusion on right 03/24/2014 Overview: Recent fall with right pleural fluid on OSH CT on 03/22/14 Resolved Problems Problem Noted Date Resolved Date Multinodular goiter 09/02/2020 03/19/2021 JODY (acute kidney injury) 01/16/2017 05/18/2019 Morbid obesity 12/03/2010 Encounters Date Type Specialty Care Team Description 01/27/2022 Orders Only General Surgery Vianca Nelson RN from Last 3 Months Immunizations Name Administration Dates Next Due Influenza PF, Split 05/21/2014 Influenza Vaccine, Whole 06/15/2008, 06/22/2006, 06/10/2005 Pneumococcal Polyvalent 23 11/29/2005, 04/15/2000 Td, adult 08/15/2003 Family History Medical History Relation Comments Sleep Apnea Brother Diabetes Maternal Aunt Diabetes Maternal Grandmother Diabetes Mother Sleep Apnea Niece Diabetes Paternal Aunt Diabetes Paternal Grandmother Relation Status Comments Brother Alive Maternal Aunt Maternal Grandmother Mother Niece Paternal Aunt Paternal Grandmother Social History Tobacco Use Types Packs/Day Years Used Date Former Smoker Cigarettes 3 40 Quit: 10/08/19 11 Smokeless Tobacco: Never Used Tobacco Cessation: Counseling Given: No Alcohol Use Standard Drinks/Week Comments No 0 (1 standard drink = 0.6 oz pure alcoho l) Sex Assigned at Date Recorded Not on file Last Filed Vital Signs Vital Sign Reading Time Taken Comments Blood Pressure 152/74 06/08/2021 1:49 PM EDT Pulse 75 06/08/2021 1:49 PM EDT Temperature 36.3 ??C (97.4 ??F) 06/08/2021 1:49 PM EDT Respiratory Rate 16 06/08/2021 1:49 PM EDT Oxygen Saturation 96% 06/08/2021 1:49 PM EDT Inhaled Oxygen Concentration - - Weight 203.7 kg (449 lb) 04/07/2021 12:25 AM EDT Height 160 cm (5' 3) 04/06/2021 4:49 AM EDT Body Mass Index 79.54 04/06/2021 4:49 AM EDT Plan of Treatment Health Maintenance Due Date Last Done Comments Covid-19 Vaccine (#1) 1961 HIV screen 1974 Hepatitis C Screening 1974 Lipid Screening 1974 Tdap adult 1975 HPV test 1986 PAP Smear 1986 Breast Cancer Share Decision 1996 Needed Colonoscopy 2001 Breast Cancer screening 2006 Zoster vaccine (1 of 2) 2006 Advance Directive 2011 Tetanus vaccine 08/15/2013 08/15/2003 Bone Density Scan 2021 Pneumoccocal Vaccine: 65+ (1 - 2021 11/29/2005, 04/15 PCV) Influenza (Flu) vaccine (1 of 1 - 04/15/2022 05/21/2014, , Influenza standard series) 06/22/2006, Additiona l history exists Diabetes Screening (HgbA1C or 04/19/2024 04/19/2021, 2020, Glucose) 04/07/2021, Additional history exists Goals Goal Patient Goal Associated Recent Patient-Stated? [...] Lifestyle On track (09/21/2019 No Dimple Adams, FOREST your foods 12:35 PM EST) Note: Formatting of this note might be d ifferent from the original. - use the notebook - can you add some calorie information: Either google or use a book such as Calorie [employer] (available on Keycoopt) OR [employer] (if you're using a package, it will have calorie and protein info on the back) - The other thing to write down would be grams of protein - 1500 is a good starting point for a ca jeffrey goal Insurance Payer Benefit Plan / Subscriber ID Effective Dates Phone Addre ss Type Group [facility] MA[facility] [id number] 2019-Presen [phone] [address] [address] MEDICARE MEDICARE t [address] [place] [address] [place] [id number] 2021-Prese [phone] [address] [place] [address] Advance Directives Latest Code Status on File Code Status Date Activated Date Inactivated Comments Attempt Cardiopulmonary Resuscitation - 04/19/2021 7:15 PM 3:12 PM Inpatient Code Status decision made by: Patient Attempt Cardiopulmonary Resuscitation - 04/06/2021 3:33 AM 021 4:32 PM Inpatient Code Status decision made by: Patient Attempt Cardiopulmonary Resuscitation - 03/03/2021 11:56 AM 2020 2:33 PM Inpatient Code Status decision made by: Patient Full Code 01/16/2017 9:39 PM 01/21/2017 8:15 PM Does patient have capacity to make decision: Yes Full Code 01/16/2017 2:24 AM 01/16/2017 9:39 PM Does patient have capacity to make decision: Yes Care Teams Nutrition Manager Relationship Specialty Start Date End Date Alphonso Murphy MD PCP - General Family Medicine 02/19/[address] [place] [address] (Pdus)
--- OUTSIDE RECORDS SUMMARY | 2022-03-05 02:15 | XMS_ITS | Encounter Summary ---
:1955 [place] [address] Care Team Providers Name Role Phone Alphonso Murphy MD Primary Care Provider [phone] Encounter Details Date Type Department Care Team Description 05/05/2021 [place] [address] Social History Tobacco Use Types Packs/Day Years Used Date Former Smoker Cigarettes 3 40 Quit: 10/08/19 11 Smokeless Tobacco: Never Used Alcohol Use Standard Drinks/Week Comments No 0 (1 standard drink = 0.6 oz pure alcoho l) Sex Assigned at Date Recorded Not on file documented as of this encounter Miscellaneous Notes Telephone Encounter - Maris Jurado LPN - 05/05/2021 1:10 PM EDT Reviewed and agree with plan of care. [facility] Telephone Triage Note Patient Name: Radha Masterson : 1955 [id number] Caller: Radha Masterson Chief Complaint/reason for call Elevated temp, SOB, increase pain from leg wound and increase size Type of Wound Venous ulcer: Currently using tubigrips Location and laterality right lower leg Drainage serous Home Health Agency: [facility] Subjective: [facility]NA nurse Linh left message on triage voicemail requesting we call patient. Phone call to patient..... Elevated temp and pain on right lower leg. Area of cellulitis has increased in size to [id number]. Last dose of Cefazolin was 04/30/21. Associated symptoms: PER PATIENT REPORT ONSET Diabetes (if yes, last Blood sugar) Does not take her FBS Fever (temp >100.4) 100.3 Chills Y Sweats N Nausea Y Change in Mental Status N Vomiting N Appetite N Change in bowel or bladder function N Fatigue/general malaise N SOB Y - increase stuffiness and reports her sinuses are full. Worsening edema Y Worsening pain Y - 10/10 per patient Erythema/warmth Y Increased Drainage N Description of drainage serous Odor N Precipitated/aggravated by: Stopped cefazolin on 04/30/21 Alleviating factors: Unknown. Consulted with: Zoila Templeton RN Disposition: Recommended evaluation in ER. Y - will go to closest ER in [facility] Report called to ER N Scheduled f/u appt in wound clinic N Recommended f/u appt with PCP N Other: Home care instructions/orders N Patients' Disposition- Patient lives alone and her friend that normally drives her to appointments is out of town. Patient refused to call 911 for transport to the hospital she insisted on taking the shuttle bus to [facility] ER. Plan of Care/Recommendations- Seek Medical Attention MARGY / Call 911. Patient refused to call 911 but agreed to go to ER via shuttle bus If Symptoms Worsen- call 911 Follow up. Patient Teach Back/Response- Patient was able to express understanding that I asked her to call 911 but she continued to decline. Monitor for signs of infection which may include: Fever Sweats Chills Nausea, Vomiting or Diarrhea Unexplained increase in Blood Glucose levels At or around the wound site: Increased pain Swelling or edema Redness Warmth Purulent drainage Malodor Contact the [facility] with any above symptoms Tuesday- Tuesday 8:00AM-4:30PM. If weekends / holidays / evenings, please report to the Emergency Department. [phone] Comments: *Follow up phone call to Linh at [facility] at [phone]. Reviewed with Linh recommendation to call 911 for patient and the patients refusal to do so. Linh states she is in the next town over from patient and will head back to patients home and help her call 911. Linh has triage line number and will call with update. No Did you use [employer] Triage Book or the Sepsis Protocol? Is yes, use dot phrase to add to note. Maris Jurado LPN documented in this encounter Plan of Treatment [...] Lifestyle On track (09/21/2019 12:34 PM EST) No Dimple Adams RD Note: Formatting of this [...] google or use a book such as [employer]ar[employer] (available on [employer]) OR [employer] (if you're using a package, it will have calorie and protein info on the back) - The other thing to write down would be grams of protein - 1500 is a good starting point for a ca jeffrey goal documented as of this encounter Visit Diagnoses Not on filedocumented in this encounter Care Teams Senior Ecologist Relationship Specialty Start Date End Date Alphonso Murphy MD PCP - General Family Medicine 02/19/[address] [place] [address] documented as of this encounter
--- OUTSIDE RECORDS SUMMARY | 2022-03-05 02:15 | XMS_ITS | Encounter Summary ---
:1955 Author Organization [place] [address] Care Team Providers Name Role Phone Alphonso Murphy MD Primary Care Provider [phone] Encounter Details Date Type Department Care Team Description 07/30/2021 Telephone Pulmonology at [facility] [place] [address] Social History Tobacco Use Types Packs/Day Years Used Date Former Smoker Cigarettes 3 40 Quit: 10/08/19 11 Smokeless Tobacco: Never Used Alcohol Use Standard Drinks/Week Comments No 0 (1 standard drink = 0.6 oz pure alcoho l) Sex Assigned at Date Recorded Not on file documented as of this encounter Plan of Treatment Not on filedocumented as of this encounter Goals Goal Patient Goal Associated Recent Patient-Stated? Author Type Problems Progress beverages Lifestyle On track No Angie, (09/21/2019 Dimple Hou, RD 12:35 PM EST) [...] google or use a book such as [employer] (available on HomeTouch) OR [employer] (if you're using a package, it will have calorie and protein info on the back) - The other thing to write down would be grams of protein - 1500 is a good starting point for a ca jeffrey goal documented as of this encounter Visit Diagnoses Not on filedocumented in this encounter Care Teams Forensic Pathologist Relationship Specialty Start Date End Date Alphonso Murphy MD PCP - General Family Medicine 02/19/[address] [place] [address] documented as of this encounter
--- OUTSIDE RECORDS SUMMARY | 2022-03-05 02:15 | XMS_ITS | Encounter Summary ---
:1955 Author Organization [facility] [place] [address] Care Team Providers Name Role Phone Alphonso Murphy MD Primary Care Provider [phone] Reason for Referral Consultation (Urgent) - Closed Specialty Diagnoses / Procedures Referred By Contact Refer red To Contact Wound Care Diagnoses Venous stasis ulcer of calf, unspecified laterality, unspecified ulcer stage, unspecified whether varicose veins present Lisa Singh MD [facility] [place] [address] [place] [address] Referral ID Status Reason Start Date Expiration Date Visits V isits Requested Authorized [id number] Closed Consult, 03/23/2021 03/23/2022 1 1 Test & Treat Encounter Details Date Type Department Care Team Description 03/23/2021 Office Visit General Surgery at Lisa Singh MD Venous stasis ulcer of [facility] calf, unspecified [facility] DR david, [facility] GENERAL SURGERY unspecified ulcer [place], [place] [address] stage, unspecified [phone] whether varicose veins present Social History Tobacco Use Types Packs/Day Years Used Date Former Smoker Cigarettes 3 40 Quit: 10/08/19 11 Smokeless Tobacco: Never Used Alcohol Use Standard Drinks/Week Comments No 0 (1 standard drink = 0.6 oz pure alcoho l) Sex Assigned at Date Recorded Not on file documented as of this encounter Progress Notes Lisa Singh MD - 03/23/2021 10:30 AM EDT Radha is here today for a wound check. She is 2 and half weeks status post total thyroidectomy for large multinodular goiter. Last week we had a phone consultation and she expressed concern about a lumparound her incision as well as tenderness around her incision, and difficulty breathing when she waslying flat. Since we spoke last week she reports that her symptoms are grossly unchanged. Of note she did express to me that her opened wounds on her legs are getting worse. She has chronic venous stasis and lymphedema and has venous stasis ulcers on both her extremities. On exam she still had residual Dermabond in her incision which was removed. There was no erythema, no drainage and the incision was well-healed and approximated. There is no obvious seroma or hematoma on exam that I could appreciate when palpated. She did have some firm induration on the right lateral aspect of her incision that was more consistent with forming scar tissue. She was quite sensitive topalpation during my entire exam. Her voice was strong and appeared normal when she spoke. I have asked her to get labs today. Her calcium came back as 9.0 and her PTH came back as 31. Plan Regarding her persistent pain and difficulty swallowing around her incision, I reassured her today that there is no signs of any acute complications or infection at this time. I instructed her to startdoing scar massage at least twice daily and we we will plan to do a phone follow-up in 2 weeks to ensure that she is continuing to improve. She was instructed to call us back if her symptoms worsened at any time or if she developed an additional symptoms. Regarding her calcium and parathyroid levels. Today I will stop her calcitriol giving given that herPTH has now recovered, I will have her still take calcium 1 g twice a day and slowly wean that off. Lastly I placed a referral urgent to wound clinic today as she does not have any established wound care clinic or lymphedema clinic to help with her wounds and also help with her her venous stasis and lymphedema. She is following up with her provider regarding her wounds this week however I think long-term she needs to be established with the wound care clinic. documented in this encounter Plan of Treatment Scheduled Referrals Name Type Priority Associated Diagnoses Order S chedule Referral to Wound Outpatient Referral Routine Venous stasis ul cer Ordered: Clinic of calf, unspecified 021 laterality, unspecified ulcer stage, unspecified whether varicose veins present documented as [...] protein Lifestyle On track (09/21/2019 12:[address] EST) Note: Formatting of this note [...] google or use a book such as [employer] (available on Listiki) OR [employer] (if you're using a package, it will have calorie and protein info on the back) - The other thing to write down would be grams of protein - 1500 is a good starting point for a ca jeffrey goal documented as of this encounter Visit Diagnoses Diagnosis Venous stasis ulcer of calf, unspecified laterality, unspecified ulcer stage, unspecified whether varicose veins prese nt documented in this encounter Care Teams Quality Improvement Manager Relationship Specialty Start Date End Date Alphonso Murphy MD PCP - General Family Medicine 02/19/[address] [place] [address] documented as of this encounter
--- OUTSIDE RECORDS SUMMARY | 2022-03-05 02:15 | XMS_ITS | Encounter Summary ---
:1955 Author Organization [facility] [place] [address] Care Team Providers Name Role Phone Alphonso Murphy MD Primary Care Provider [phone] Encounter Details Date Type Department Care Team Description 07/29/2021 Telephone Pulmonology at [facility] [place] [address] Social History Tobacco Use Types Packs/Day [...] google or use a book such as [employer] (available on Solaria) OR [employer] (if you're using a package, it will have calorie and protein info on the back) - The other thing to write down would be grams of protein - 1500 is a good starting point for a ca jeffrey goal documented as of this encounter Visit Diagnoses Not on filedocumented in this encounter Care Teams Grid Caster Relationship Specialty Start Date End Date Alphonso Murphy MD PCP - General Family Medicine 02/19/[address] [place] [address] documented as of this encounter
--- OUTSIDE RECORDS SUMMARY | 2022-03-05 02:15 | XMS_ITS | Encounter Summary ---
:1955 Author Organization [facility] [place] [address] Care Team Providers Name Role Phone Alphonso Murphy MD Primary Care Provider [phone] Reason for Referral Home Health Care (Routine) - Closed Specialty Diagnoses / Procedures Referred By Contact Refer red To Contact Unknown Specialty Diagnoses Venous stasis ulcer of right calf limited to breakdown of skin, unspecified whether varicose veins present Venous insufficiency of both lower extremities Lymphedema of both lower [place] [address] Referral ID Status Reason Start Date Expiration Visits Visits Date Requested Authorized [id number] Closed Continuity of 03/30/2021 09/26/2021 99 99 Care Non PCP Reason for Visit Consultation (Urgent) - Closed Specialty Diagnoses / Procedures Referred By Contact Refer red To Contact Wound Care Diagnoses Venous stasis ulcer of calf, unspecified laterality, unspecified ulcer stage, unspecified whether varicose veins present Lisa Singh MD [facility] [place] [address] [place] [address] Referral ID Status Reason Start Date Expiration Date Visits V christine Requested Authorized [id number] Closed Consult, 03/23/2021 03/23/2022 1 1 Test & Treat Encounter Details Date Type Department Care Team Description 03/30/2021 Office Visit [facility] at [facility] Venous stasis ulcer of right calf limited to breakdown of skin, unspecified whether varicose veins present (Primary Dx); [facility] DEISY Magana Venous insufficiency of both lower extre mities; [facility] MEDICAL Lymphedema of both lower ext remities [facility] [place], [place] [id number] Social History Tobacco Use Types Packs/Day Years Used Date Former Smoker Cigarettes 3 40 Quit: 10/08/19 11 Smokeless Tobacco: Never Used Alcohol Use Standard Drinks/Week Comments No 0 (1 standard drink = 0.6 oz pure alcoho l) Sex Assigned at Date Recorded Not on file documented as of this encounter Last Filed Vital Signs Vital Sign Reading Time Taken Comments Blood Pressure 143/72 03/30/2021 4:03 PM EDT Pulse 79 03/30/2021 4:03 PM EDT Temperature - - Respiratory Rate - - Oxygen Saturation 100% 03/30/2021 4:03 PM EDT Inhaled Oxygen Concentration - - Weight - - Height - - Body Mass Index - - documented in this encounter Patient Instructions Patient InstructionsAmy Bhatia APRN - 03/30/2021 4:00 PM EDT Dressing Instructions to right lower leg Change every 2 days and as needed for drainage Remove old dressing and cleanse with normal saline Apply Mepilex AG non border foam Secure with Kerlix Apply Single layer Dermafit size G to RLE Monitor for signs of infection which may include: Fever Sweats Chills Nausea, Vomiting or Diarrhea Unexplained increase in Blood Glucose levels At or around the wound site: Increased pain Swelling or edema Redness Warmth Purulent drainage (thick yellow/green drainage) Malodor [facility] with any above symptoms Tuesday- Tuesday 8:00AM-4:30PM ([phone]). If weekends / holidays / evenings, please report to the Emergency Department. documented in this encounter Progress Notes Amy Bhatia APRN - 03/30/2021 4:00 PM EDT Images from the original note were not included. [facility] Initial Consultation Note HPI: Radha Masterson is a 65 y.o. female referred by Lisa Singh MD, [...] S/P total thyroidectomy for large multinodular goiter. The medical history and recent labs were reviewed prior to the patient's appointment. VNA: Will begin [facility] 04/01/21 Patient Active Problem List Diagnosis Code [...] limited to breakdown of skin I83.012, L97.211 Social History Socioeconomic History ??? Marital status: Single Spouse name: None ??? Number of children: None ??? Years of education: None ??? Highest education level: None Occupational History ??? None Tobacco Use ??? Smoking status: Former Smoker Packs/day: 3.00 Years: 40.00 Pack years: 120.00 Types: Cigarettes Quit date: 10/08/2010 Years since quittin.4 ??? Smokeless tobacco: Never Used Vaping Use ??? Vaping Use: Never used Substance and Sexual Activity ??? Alcohol use: No ??? Drug use: No ??? Sexual activity: Not Currently Other Topics Concern ??? None Social History Narrative Lives in [place] [facility] [place]. Daughter lives with her for now. Has 2 other sons. Another son earlier this year from a respiratory illness. Never . Quit smoking in 2009. No EtOH. Spends time with grandchildren. 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 Difficulty of Paying Living Expenses: Not on file Food Insecurity: ??? Worried About Running Out of Food in the Last Year: Not on file ??? Ran Out of Food in the Last Year: Not on file Transportation Needs: ??? Lack of Transportation (Medical): Not on file ??? Lack of Transportation (Non-Medical): Not on file Physical Activity: ??? Days of Exercise per Week: Not on file ??? Minutes of Exercise per Session: Not on file Diagnostics: JESUS ALBERTO's: None Pertinent labs: 03/04/21 Component Value Flag Ref Range Units Status POC Glucose 111 65 - 199 mg/dL Final Review Of Systems: Ms. Masterson is here today for initial visit R/T RLE venous ulcers,weeping. She has no prior history of ulcers to RLE but has had them to LLE. She wear compression stockings to BLE. She notes a large amount of drainage from RLE wounds. Denies constitutional symptoms of fever, chills. Neuro: denies FINN, dizziness CV: Denies CP, has SOB and wears nasal cannula O2 at 3l/min GI: denies N/V, diarrhea : Denies voiding issues Diet: Appetite good Wound care:Cover dressing to open area RLE Neuropathy: Denies Pain: Present to anterior RLE where open area, weeping is present PE: Estimated body mass index is 80.02 kg/m?? as calculated from the following: Height as of 03/03/21: 160 cm (5' 3). Weight as of 03/03/21: 204.9 kg (451 lb 11.2 oz). BP-143/72 P-799 02 Sat 100% General: pleasant, in NAD Mobility:Arrived via motorized wheelchair Edema: Lymphedema to BLE DP, PT pulses audible with doppler to right foot Varicosities: Not visible Hemosiderin staining: Present Stasis dermatitis:No Callus:No Nails: Thickened Periwound: Intact Wound bed:Weeping serous fluid, erythema Exudate:Serous Odor: None* Right Calf: 69 cm Right Ankle: 43 cm Wound location Wound bed Measurement Anterior RLE Erythema, weeping 12.0cm L x 10.cm W Anterior RLE Wound treatment: Wound Location:Anterior RLE Cleansed wound with NS and Vasche Analgesia:None Conservative sharp debridement: No debridement today Patient was uncomfortable during treatment. Dressing: Mepilex AG non border secured with Kerlix Dermafit single layer- Size J/K to RLE Assessment/ Plan: Radha Masterson is a 65 y.o. female referred by Lisa Singh MD, for evaluation of RLEvenous ulcers is setting of lymphedema and venous [...] S/P total thyroidectomy for large multinodular goiter. Wound care was initiated today with Non border foam with silver for antimicrobial effects and absorption of drainage. Erythema is localized. No antibiotic required today. Will initiate VNA services for wound assessment and dressing changes. Verbal and written wound care instructions were provided. She will call with any questions or concerns. Will plan F/U 2 weeks.She agreed to POC. Follow up: 2 weeks Instructions: Dressing Instructions to right lower leg Change every 2 days and as needed for drainage Remove old dressing and cleanse with normal saline Apply Mepilex AG non border foam Secure with Kerlix Apply Single layer Dermafit size G to RLE Monitor for signs of infection which may include: Fever Sweats Chills Nausea, Vomiting or Diarrhea Unexplained increase in Blood Glucose levels At or around the wound site: Increased pain Swelling or edema Redness Warmth Purulent drainage (thick yellow/green drainage) Malodor Contact the [facility] with any above symptoms Tuesday- Tuesday 8:00AM-4:30PM ([phone]). If weekends / holidays / evenings, please report to the Emergency Department. Cc: Lisa Singh MD [facility] GENERAL SURGERY [place] [phone] PCP: Alphonso Murphy MD documented in this encounter Miscellaneous Notes Addendum Note - Amy Bhatia APRN - 03/30/2021 4:00 PM EDT Addended by: AMY BAHTIA on: 03/30/2021 05:59 PM Modules accepted: Orders documented in this encounter Plan of Treatment Scheduled Referrals Name Type Priority Associated Diagnoses Order S chedule Referral to Home Outpatient Referral Routine Venous stasis [facility] of Ordered: Health - Clinic right calf limited to Use breakdown of skin, unspecified whether varicose veins p resent Venous insufficiency of both lower extremities Lymphedema of both lower extremities documented as of this encounter Goals Goal Patient Goal Associated Recent Patient-Stated? Author Type Problems Progress beverages Lifestyle On track No [place], (09/21/[address] 12:35 PM EST) [...] or use a book such as [employer] (available on [employer]) OR [employer] (if you're using a package, it will [...] unspecified whether varicose veins present - Primary Venous insufficiency of both lower extre mities Lymphedema of both lower extremities documented in this encounter Care Teams Rn Primary Care Relationship Specialty Start Date End Date Alphonso Murphy MD PCP - General Family Medicine 02/19/16 [address] [place] [address] documented as of this encounter
--- OUTSIDE RECORDS SUMMARY | 2022-03-05 02:15 | XMS_ITS | Encounter Summary ---
:1955 Author Organization [facility] [place] [address] Care Team Providers Name Role Phone Alphonso Cerna MD Primary Care Provider [phone] Reason for Visit Reason Comments Leg Pain Auth/Cert Specialty Diagnoses / Procedures Referred By Contact Refer red To Contact Diagnoses Cellulitis of right leg Cellulitis of leg, right Procedures ER IPI Referral ID Status Reason Start Date Expiration Date Visits Requ ested Visits Authorized [id number] 1 1 Encounter Details Date Type Department Care Team Description 04/05/2021 - Hospital Encounter 1 [facility] Blanquita Troncoso MD [facility] [place] [id number] Cellulitis of right leg (Primary Dx); [facility] [place] [address] Cellulitis of leg, right; [facility] [place] [address] Venous stasis ulcer of right calf limite d to breakdown of skin, unspecified whether varicose veins present; [facility] Venous in sufficiency [place] [id number] Social History Tobacco Use Types Packs/Day Years Used Date Former Smoker Cigarettes 3 40 Quit: 10/08/19 11 Smokeless Tobacco: Never Used Alcohol Use Standard Drinks/Week Comments No 0 (1 standard drink = 0.6 oz pure alcoho l) Sex Assigned at Date Recorded Not on file documented as of this encounter Last Filed Vital Signs Vital Sign Reading Time Taken Comments Blood Pressure 120/85 04/08/2021 8:33 AM EDT Pulse 84 04/08/2021 12:22 AM EDT Temperature 36.5 ??C (97.7 ??F) 04/08/2021 8:33 AM EDT Respiratory Rate 20 04/08/2021 8:33 AM EDT Oxygen Saturation 93% 04/08/2021 8:33 AM EDT Inhaled Oxygen Concentration - - Weight 203.7 kg (449 lb) 04/07/2021 12:25 AM EDT Height 160 cm (5' 3) 04/06/2021 4:49 AM EDT Body Mass Index 79.54 04/06/2021 4:49 AM EDT documented in this encounter Discharge Summaries Hina Conley APRN - 04/08/2021 1:18 PM EDT Discharge Summary Patient Name: Radha Magana Young Patient Age: 65 y.o. Language: St Helenian Race: White Ethnicity: Not nor Admit date: 04/05/2021 Discharge date and time: 04/08/2021 Attending Physician: Sunny Hebert MD Discharge Provider: Hina Conley APRN Follow-up Recommendations for Providers: -Follow up on antibiotic therapy -Follow up on efficacy of wound care therapy-VNA daily and appointment in wound care clinic on 04/13 Inpatient Provider Contact Information: For questions regarding this document or issues relating to this hospitalization on the Medical Service, please contact your inpatient physician through the [facility] . Issues after hours and on weekends will be handled by the Hospitalist staff on-call. Discharge Diagnoses (Hospital Problems) and Secondary Diagnoses (Chronic Problems): Active Hospital Problems Diagnosis ??? Cellulitis of right leg Resolved Hospital Problems No resolved problems to display. Active Non-Hospital Problems Diagnosis ??? Lymphedema of both lower extremities ??? Venous insufficiency of both lower extremities ??? Venous stasis ulcer of right calf limited to breakdown of skin ??? S/P total thyroidectomy ??? BMI greater than 70 ??? Vitamin D deficiency ??? Dependence on continuous supplemental oxygen ??? Anxiety ??? Intertrigo ??? Grief at loss of child ??? Depression ??? DAVID treated with BiPAP ??? Pulmonary hypertension ??? Musculoskeletal chest pain ??? Pleural effusion on right Operations/Major Procedures: Operations: Other Major Procedures: History of Presentation: 65 year old woman with hx of pulmonary HTN, HFpEF, DAVID, bilateral LE edema, prosthetic right knee, and obesity (BMI 80) who presents to [facility] ER 04/05 with RLE ulcer pain and discharge. She states that for the past 3-4 days her RLE ulcer has been becoming more painful. The discharge used to be clear, but now is yellow with a foul odor. She has daily VNA wound care and they were also concerned about theappearance of her wound. She denies fever, chills, nausea/vomiting, and chest pain. She has chronic SOB on 3L of O2, but thinks it might be a bit worse today. Her LE edema is chronic and she thinks it has been about the same for months. She has difficulty ambulating at baseline and uses a mobility scooter. Hospital Course: #Purulent cellulitis of RLE Initially started on Vanc/Zosyn in ED given rapid progression of erythema and purulent drainage. MRSA PCR done with high suspicion for staph infection. Zosyn discontinued 04/06 and continued on vancomycin while awaiting MRSA PCR results. Antibiotic coverage was narrowed to cefazolin once PCR was negative. Wound care recommended dressing changes by bedside RN 3x/week with cleaning and mepilex Ag dressings. Wound care will evaluate wound 1x week. While admitted ot hospital. Patient will continue with VNA services for wound care post discharge and follow up with wound clinic. ?? #obstructive sleep apnea requiring nocturnal BiPAP-chronic #obesity hypoventilation syndrome #pulmonary hypertension During admission patient is using her home device and settings while asleep and her home dose of 3 LO2 via nasal cannula when awake due to her chronic hypercarbia with mild hypoxemia due to obesity-related ventilatory impairment and mild obstructive lung disease. She was also monitored for the need for continued/additional respiratory involvement given risk forrespiratory compromise due to limited mobility and body habitus Vital Signs at Discharge: BP: 120/85, Heart Rate: 84, Temp: 36.5 ??C (97.7 ??F), Resp: 20, BMI (Calculated): 79.27 Height: 160 cm (5' 3) (04/06/21 0449) Weight: (!) 203.7 kg (449 lb) (04/07/21 0025) Functional and Cognitive Status: Assistance with BADL/independent IADL Important Studies and Lab Data: Labs: Last 3 Lytes Recent Labs 04/08/21 0138 04/07/21 0323 04/05/21 2320 NA 138 140 142 K 3.8 3.9 4.0 CL 103 105 107 CO2 26 28 26 BUN 16 16 13 CREATININE 0.80 0.75 0.62* Last 3 CBC Recent Labs 04/08/21 0138 04/07/21 0323 04/05/21 2320 WBC 8.8 8.2 9.5 MRSA Result Negative Negative Final MRSA Interp Final Negative for methicillin-resistant Staphylococcus aureus (MRSA) This test was performed using the GeneXpert?? Dx System and the Xpert MRSA Assay. The MRSA target DNA was not detected. The sample processing control and probe check were valid. The performance of this test was determined by the [facility] Molecular Pathology Laboratory. It has been cleared by the U.S. Food and Drug Administration for clinical use. Comment: [VERIFIED DATE]04.06.21 Verified By:Morales Taylor (Electronic Signature) Pending Studies and Lab Data: none Discharge Conditions/Prognosis: Stable/fair Discharge to: Home with VNA wound care services Updated Allergies/ADRs: Allergies Allergen Reactions ??? Red Blood Cells Other (See Comments) Antibodies-Difficult to Crossmatch DO NOT REMOVE Please contact the Blood Bank at [phone] for questions. ??? Iodine And Iodide Containing Products rash ??? Oxycodone Rash ??? Morphine Rash Other reaction(s): PRURITIS Immunizations Given this Hospitalization: Immunization History Administered Date(s) Administered ??? Influenza PF, Split 05/21/2014 ??? Influenza Vaccine, Whole 06/10/2005, 06/22/2006, 06/15/2008 ??? Pneumococcal Polyvalent 23 04/15/2000, 11/29/2005 ??? Td, adult 08/15/2003 Discharge Medications: Your Medications New Medications Dose Details acetaminophen 325 mg Tab Commonly known as: Tylenol Take 2 tablets by mouth every 6 hours as needed for Pain or Fever. 650 mg Quantity: 30 tablet Refills: 1 cephALEXin 500 mg Cap Commonly known as: Keflex Take 1 capsule by mouth 4 times daily for 5 days. 500 mg Quantity: 20 capsule Refills: 0 Continued medications with new dosing Dose Details ergocalciferoL (vitamin D2) 50,000 unit Cap Commonly known as: vitamin D2 TAKE 1 CAPSULE BY MOUTH 2 TIMES A WEEK FOR 24 DOSES What changed: See the new instructions. Quantity: 24 capsule Refills: 0 Continued medications, unchanged Dose Details ALBUTEROL INHL Inhale 2 puffs into the lungs daily. 2 puff Refills: 0 ascorbic acid (vitamin C) 1,000 mg Tab Commonly known as: VITAMIN C Take by mouth. Refills: 0 aspirin 325 mg Tab Take 325 mg by mouth Daily. 325 mg Refills: 0 buPROPion 100 mg Tab Commonly known as: Wellbutrin Take 100 mg by mouth 2 times daily. 100 mg Refills: 0 busPIRone 5 mg Tab Commonly known as: Buspar Take 10 mg by mouth 3 times daily. 10 mg Refills: 0 calciTRIoL 0.25 mcg Cap Commonly known as: Rocaltrol Take 1 capsule by mouth 2 times daily. 0.25 mcg Quantity: 60 tablet Refills: 3 calcium carbonate 200 mg calcium (500 mg) Chew Commonly known as: Tums Take 2 tablets by mouth 3 times daily. 1,000 mg Refills: 0 citalopram 20 mg Tab Commonly known as: CeleXA Take 20 mg by mouth daily. 20 mg Refills: 0 clotrimazole 1 % Crea Commonly known as: LOTRIMIN 3 times daily as needed. Refills: 0 fluticasone propionate 50 mcg/actuation Spsn Commonly known as: Flonase 1 spray by Each Nare route daily as needed. 04/06 Patient states that she only takes this when needed 1 spray Refills: 0 furosemide 40 mg Tab Commonly known as: Lasix Take 2 tablets by mouth daily. 80 mg Quantity: 180 tablet Refills: 3 ipratropium-albuteroL 0.5 mg-3 mg(2.5 mg base)/3 mL Nebu Commonly known as: Duoneb Take 3 mLs by nebulization every 6 hours as needed. 3 mL Refills: 0 levothyroxine 125 mcg Tab Commonly known as: Synthroid Take 2 tablets by mouth daily. 250 mcg Quantity: 90 tablet Refills: 3 Mag 64 64 mg Tbec TAKE 1 TABLET BY MOUTH ONCE DAILY Generic drug: Magnesium Chloride Refills: 0 metFORMIN 1,000 mg Tab Commonly known as: GLUCOPHAGE Take 1,000 mg by mouth 2 times daily (with meals). 1,000 mg Refills: 0 montelukast 10 mg Tab Commonly known as: Singulair Take 10 mg by mouth nightly. 10 mg Refills: 0 Nystop 100,000 unit/gram Powd apply topically twice a day if needed Generic drug: nystatin Refills: 0 OXYGEN-AIR DELIVERY SYSTEMS MISC 2 L. 2 L Refills: 0 potassium chloride 10 mEq Cpsr Commonly known as: MICRO-K Take 20 mEq by mouth 2 times daily. 20 mEq Refills: 0 silver sulfADIAZINE 1 % Crea Commonly known as: Silvadene Apply topically 2 times daily as needed. Refills: 0 spironolactone 25 mg Tab Commonly known as: Aldactone Take 1 tablet by mouth daily. 25 mg Quantity: 90 tablet Refills: 3 triamcinolone 0.1 % Crea Commonly known as: Kenalog 2 times daily as needed. Refills: 0 STOPPED Medications gabapentin 100 mg Cap Commonly known as: Neurontin Smoking Status at Discharge: Social History Tobacco Use Smoking Status Former Smoker ??? Packs/day: 3.00 ??? Years: 40.00 ??? Pack years: 120.00 ??? Types: Cigarettes ??? Quit date: 10/08/2010 ??? Years since quittin.5 Smokeless Tobacco Never Used Instructions Given to Patient at Discharge: Patient Instructions Instructions on Discharge to Home Why you were hospitalized: Cellulitis RIGHT leg requiring IV antibiotics Specific instructions related to your condition: Call your doctor or seek medical attention if you develop the following - chest pain, shortness of breath, fever, cough, weakness in an arm or leg Activity level: no restrictions Diet: no change in previous diet Driving: as before hospitalization. Please do not drive while on narcotics. Shower/Bath: permitted Wound Care: VNA home services with follow up with wound clinic Home oxygen therapy: 3 LPM during the day with BiPap at night Your Medications (see discharge med list for full instructions): Follow-up: Future Appointments Date Time Provider Department Center 04/13/2021 2:30 PM Amy Germain APRN Wound [facility] 07/28/2021 10:30 AM Mike Robles MD [facility] PULM [facility] Your Inpatient Doctor: BLANQUITA BLEVINS HOWARD J HAUGHEY, DAVID M Your Primary Care Provider: Alphonso Cerna MD For questions regarding this document or issues relating to this hospitalization on the Medical Service, please contact your inpatient physician through the [facility] [employer] Worker . Issues after hours and on weekends will be handled by the Hospitalist staff on-call. YOU ARE SCHEDULED FOR A FOLLOW UP APPOINTMENT WITH YOUR PRIMARY CARE PROVIDER, DR ALPHONSO CERNA ON 04/15/2021 AT 11:00AM General Instructions Wound Care Recommendations: ?? Mepilex Border Ag dressing to right leg-nursing to change every 3 days and as needed for dressing with 50% or greater strike though drainage. 1. Cleanse wound with dermal wound cleanser and gauze. 2. Apply Mepilex Border dressing 3. Apply Medigrip size G ?? Medigrip to right leg Remove Medigrip to assess legs for pressure related injury daily. 1.?? Cleanse leg(s) with Dermal Wound Cleanser, pat dry. 2.?? Place Medigrip by pulling Medigrip onto leg up to popliteal space, like you would place a sock.?? (Keep in single layer, preventing bunching behind the knee). 3.?? Double back Medigrip upon itself, creating a two layer sock.?? Make sure the top of the second layer is 1 inch below the top of the first layer to allow for a graduated compression at the proximalend. ? Wound Care Team will plan to follow: weekly. After discharge, [facility] with[facility] Future Appointments and Orders Future Appointments and Orders Future Appointments Provider Department Dept Phone 04/13/2021 2:30 PM Amy Germain APRN Wound Care at [facility] Arrive at: [place] [facility] [phone] 07/28/2021 10:30 AM Mike Robles MD Pulmonology at [facility] Arrive at: [place] [place] [facility] [phone] Discharge References/Attachments Cellulitis ([place]) documented in this encounter Discharge Instructions Discharge InstructionsHina Conley APRN - 04/08/2021 11:31 AM EDT Wound Care Recommendations: ?? Mepilex Border Ag dressing to right leg-nursing to change every 3 days and as needed for dressing with 50% or greater strike though drainage. 1. Cleanse wound with dermal wound cleanser and gauze. 2. Apply Mepilex Border dressing 3. Apply Medigrip size G ?? Medigrip to right leg Remove Medigrip to assess legs for pressure related injury daily. 1.?? Cleanse leg(s) with Dermal Wound Cleanser, pat dry. 2.?? Place Medigrip by pulling Medigrip onto leg up to popliteal space, like you would place a sock.?? (Keep in single layer, preventing bunching behind the knee). 3.?? Double back Medigrip upon itself, creating a two layer sock.?? Make sure the top of the second layer is 1 inch below the top of the first layer to allow for a graduated compression at the proximalend. ? Wound Care Team will plan to follow: weekly. After discharge, [facility] up with: [facility] Patient InstructionsVianca Sahu CMA - 04/08/2021 11:26 AM EDT Instructions on Discharge to Home Why you were hospitalized: Cellulitis RIGHT leg requiring IV antibiotics Specific instructions related to your condition: Call your doctor or seek medical attention if you develop the following - chest pain, shortness of breath, fever, cough, weakness in an arm or leg Activity level: no restrictions Diet: no change in previous diet Driving: as before hospitalization. Please do not drive while on narcotics. Shower/Bath: permitted Wound Care: [facility]NA home services with follow up with wound clinic Home oxygen therapy: 3 LPM during the day with BiPap at night Your Medications (see discharge med list for full instructions): Follow-up: Future Appointments Date Time Provider Department Center 04/13/2021 2:30 PM Amy Germain APRN Wound [facility] 07/28/2021 10:30 AM Mike Robles MD [facility] PULM [facility] Your Inpatient Doctor: BLANQUITA BLEVINS HOWARD J HAUGHEY, DAVID M Your Primary Care Provider: Alphonso Cerna MD For questions regarding this document or issues relating to this hospitalization on the Medical Service, please contact your inpatient physician through the [facility] Worker . Issues after hours and on weekends will be handled by the Hospitalist staff on-call. YOU ARE SCHEDULED FOR A FOLLOW UP APPOINTMENT WITH YOUR PRIMARY CARE PROVIDER, DR ALPHONSO CERNA ON 04/15/2021 AT 11:00AM AttachmentsThe following attachments cannot be sent through Care Everywhere. Cellulitis ([place])documented in this encounter Medications at Time of Discharge Medication Sig Dispensed Refills Start Date End Date acetaminophen (Tylenol) Take 2 tablets by 30 tablet 1 04/08 325 mg Tablet mouth every 6 hours as needed for Pain or Fever. calciTRIoL (Rocaltrol) Take 1 capsule by 60 tablet 3 2020 0.25 mcg Capsule mouth 2 times daily. calcium carbonate Take 2 tablets by 0 03/04/2021 (Tums) 200 mg calcium mouth 3 times daily. (500 mg) Tablet, Chewable metFORMIN (GLUCOPHAGE) Take 1,000 mg by 0 021 1,000 mg Tablet mouth 2 times daily (with meals). furosemide (Lasix) 40 Take 2 tablets by 180 tablet 3 021 mg TabletIndications: mouth daily. Pulmonary hypertension, Chronic heart failure with preserved ejection fraction spironolactone Take 1 tablet by 90 tablet 3 01/01/2021 (Aldactone) 25 mg mouth daily. Tablet montelukast (Singulair) Take 10 mg by mouth 0 10 mg Tablet nightly. OXYGEN-AIR DELIVERY 2 L. 0 12/24/2014 SYSTEMS MISC aspirin 325 mg Tablet Take 325 mg by mouth 0 Daily. ascorbic acid, vitamin Take by mouth. 0 C, (VITAMIN C) 1,000 mg Tablet silver sulfADIAZINE Apply topically 2 0 (SILVADENE) 1 % Cream times daily as needed. ergocalciferol (Vitamin TAKE 1 CAPSULE BY 24 capsule 0 12/02 D2) 50,000 unit Capsule MOUTH 2 TIMES A WEEK FOR 24 DOSES Mag 64 64 mg Tablet, TAKE 1 TABLET BY 0 9 Delayed Release (E.C.) MOUTH ONCE DAILY citalopram (CELEXA) 20 Take 20 mg by mouth 0 mg Tablet daily. ALBUTEROL INHL Inhale 2 puffs into 0 the lungs daily. buPROPion (WELLBUTRIN) Take 100 mg by mouth 0 100 mg Tablet 2 times daily. busPIRone (BUSPAR) 5 mg Take 10 mg by mouth 3 0 1 Tablet times daily. potassium chloride Take 20 mEq by mouth 0 019 (MICRO-K) 10 mEq 2 times daily. Capsule, Sustained Release clotrimazole (LOTRIMIN) 3 times daily as 0 2018 1 % Cream needed. fluticasone propionate 1 spray by Each Nare 0 06/2019 (FLONASE) 50 route daily as mcg/actuation [place], needed. 04/06 Patient Suspension states that she only takes this when needed NYSTOP Powder apply topically twice 0 02/20/2019 a day if needed triamcinolone (KENALOG) 2 times daily as 0 2018 0.1 % Cream needed. ipratropium-albuterol Take 3 mLs by 0 12/02/2016 (DUONEB) 0.5 mg-3 nebulization every 6 mg(2.5 mg base)/3 mL hours as needed. Solution for Nebulization cephALEXin (Keflex) 500 Take 1 capsule by 20 capsule 0 04/0804/13/2021 mg Capsule mouth 4 times daily for 5 days. levothyroxine Take 2 tablets by 90 tablet 3 03/05/202108/15 (Synthroid) 125 mcg mouth daily. Tablet documented as of this encounter Progress Notes Olga Wells, PT - 04/08/2021 2:21 PM EDT 04/08/21 1300 Evaluation & Treatment Document Type contact Total Minutes, Physical Therapy 0 Comment, Session Not Performed Patient rejected PT, noted I still don't like you and want you to get out Loc Valdez, RN - 04/08/2021 2:09 PM EDT Radha Masterson discharged to home by wheelchair van transportation services with advanced manufacturing associate. All belongings sent with patient. RONEY removed, wound dressing clean dry and intac, skin free from pressure ulcers. Discharge instructions, medications, and follow-up appointments reviewed, education provided onwound care, paper prescriptions given to patient, all questions answered. . VNA paperwork faxed. Patient instructed to call with concerns. Pt escorted to [facility] by [facility]. Sunny Hebert MD - 04/08/2021 1:42 PM EDT Hospital Medicine - Attending Day of Discharge Documentation Discharge diagnosis Active Hospital Problems Diagnosis ??? Cellulitis of right leg Resolved Hospital Problems No resolved problems to display. Secondary Issues Active Non-Hospital Problems Diagnosis ??? Lymphedema of both lower extremities ??? Venous insufficiency of both lower extremities ??? Venous stasis ulcer of right calf limited to breakdown of skin ??? S/P total thyroidectomy ??? BMI greater than 70 ??? Vitamin D deficiency ??? Dependence on continuous supplemental oxygen ??? Anxiety ??? Intertrigo ??? Grief at loss of child ??? Depression ??? DAVID treated with BiPAP ??? Pulmonary hypertension ??? Musculoskeletal chest pain ??? Pleural effusion on right I have personally seen and examined the patient and they are ready for discharge. I spent >30 minutes (Day of Discharge Code 39447) involved in the final examination of the patient, discussion of the hospital stay, instructions for continuing care to all relevant caregivers, and preparation of discharge records, prescriptions and referral forms. Plans ? Discharge to home ? Follow-up scheduled with wound care, VNA ? Please see the Discharge Summary for complete details of any medication changes and additional plans. Carolina Casey OT - 04/08/2021 1:11 PM EDT Occupational Therapy Note Document Type: contact Total Minutes, Occupational Therapy: 0 Reason: OT attempted to see patient this afternoon. Patient firmly declined to participate in therapy. Anticipated to discharge later today. Denied having any functional concerns. If discharge plans change, OT will follow up as able and when appropriate. Pager: [phone] Carolina Casey OT 04/08/2021 Occupational Therapy Rehabilitation Department Jessica Nick RN - 04/08/2021 12:21 PM EDT CARE MANAGEMENT FINAL DISCHARGE NOTE Chart reviewed, care reviewed with primary team and at interdisciplinary rounds. Patient is medically ready for discharge 04/08/21. Needs for Transition of Care Plan for discharge is: Home with resumption of oxygen through [facility] and VNA through [facility]. Agency Referrals: 1) [facility] Intake office: tel: [phone] [place] Ferron [place] [phone] phone [phone] fax [facility] 2) [facility]. PHONE: [phone] FAX: [phone] Transportation: Call Center Associate spoke with patient, Radha, who states she needs assist with setting up her Medicaid Ride for transport home today once cleared medically for discharge. regulatory specialist, please schedule Medicaid transport ride (patient typically uses wheelchair van through [facility] [[email or web address] for today at 1300 from [facility] to her home at [address], [place], [place]. (Address confirmed with patient). Patient has her own motorized wheelchair on site for transport along with portable oxygen tank and her own walker. No one will be home to meet her. She has no problems accessing her home as it is handicapped access set up. Current DME: wheelchair - power, walker - rolling DME Needed at [place]: None indicated Patient is insured through: Primary Insurance: [facility] MANAGED MEDICARE Payor: [facility] MANAGED MEDICARE / Plan: [facility] MANAGED MEDICARE / Product Type: *No Product type* / Secondary Insurance: MEDICAID [place] Prescription Coverage: Yes, see above Preferred Pharmacy: See below [id number] - [place], [place] - [address] [facility] [phone] This plan was formulated with input from patient, Radha Masterson, and team. All are in agreement with plan. Jessica Nick RN Case [employer] Driver of Care Management Jessica Nick RN - 04/08/2021 12:15 PM EDT The patient, Radha Masterson, has been provided a list of Home Health Agencies/DME vendors which serve their preferred geographic area. A letter describing our affiliations was reviewed with them and they were educated about their right to choose where referrals are placed. CM provided patient with [facility] Star Quality Rating for Home care hand out. Patient requests resumption of oxygen referral to [facility] Central Intake office: tel: [phone] [employer] [place] [phone] phone [phone] fax [facility] . -Radha states that she has her home portable oxygen tank here with her for transport and oxygen available to her at home- Patient requests resumption of VNA services for wound care to [facility]. PHONE: [phone] FAX: [phone] Expected date of discharge: 04/08/21. Referral routed to the Heat Treat Supervisor for matching with agency/vendor and to provide any required information. CM to continue to monitor IVETH Loredo Loc Valdez RN - 04/08/2021 11:26 AM EDT Pt is refusing masimo. Spot checks are performed with vital signs or as needed. Pt is refusing bed alarm, despite education on importance. Hina Conley APRN - 04/07/2021 3:48 PM EDT Hospital Medicine Daily Progress Note Admit Date: 04/05/2021 Hospital Day 1 day Active Hospital Problems Diagnosis ??? Cellulitis of right leg Resolved Hospital Problems No resolved problems to display. 24 Hour Events: -MRSA PCR negative -Vancomycin d/c started cefazolin -Seen by wound care, recommend 3x week wound care by bedside RN with dressing change, mepilex Galileo -VSS, using home CPAP device ROS: Radha endorses fatigue, and did not want to have an extended conversation this morning. No fever, endorses decreased appetite No cough or shortness of breath No chest pain or palpitation No abdominal pain, nausea or vomiting No hematuria or dysuria No constipation or diarrhea Painful, purulent wound RIGHT lower leg. No sore throat or nasal congestion Physical Exam Vitals Range last 24 hrs Temperature Temp: [35.7 ??C (96.3 ??F)-36.6 ??C (97.9 ??F)] Heart Rate Heart Rate: [71] Blood Pressure BP: (107-150)/(57-68) Respiratory Rate Resp: [18-22] SpO2 SpO2: [91 %-97 %] Intake/Output Summary (Last 24 hours) at 04/07/2021 0958 Last data filed at 04/06/2021 1200 Gross per 24 hour Intake 200 ml Output -- Net 200 ml Patient Vitals for the past 168 hrs: Weight 04/07/21 0025 (!) 203.7 kg (449 lb) 04/06/21 0449 (!) 203 kg (447 lb 8.5 oz) 04/05/21 2033 (!) 204.1 kg (450 lb) BMI: Weight: (!) 203.7 kg (449 lb) (04/07/21 0025) BMI (Calculated): 79.27 BMI Classification: Morbid Obesity Estimated Creatinine Clearance: 135.1 mL/min (based on SCr of 0.75 mg/dL). CONSTITUTIONAL: Sleeping in bed, home CPAP unit on. Awakens to voice. HEENT: PERRLA CHEST: regular rate and rhythm, heart sounds faint due to body habitus LUNGS: Grossly clear to auscultation, no wheezes, rales or rhonchi appreciated, dim at bases, likelydue to body habitus ABDOMEN: soft, non tender, normoactive bowel sounds EXTREMITIES: Wound RIGHT lower leg, CSM intact x 4 extremities. SKIN: moist, erythema RLE NEURO: No focal deficit PSYCH: normal affect, normal speech Studies reviewed in eDH. Remarkable for the following: LABS: Recent Labs 04/07/21 0323 04/05/21 2320 WBC 8.2 9.5 HGB 12.3 13.6 HCT 37.6 41.1 PLATELET 228 263 Recent Labs 04/07/21 0323 04/05/21 2320 NA 140 142 K 3.9 4.0 CL 105 107 CO2 28 26 BUN 16 13 CREATININE 0.75 0.62* Recent Labs 04/05/21 2320 AST 21 ALT 19 ALKPHOS 75 BILITOT 0.7 BILIDIR 0.1 Recent Labs 04/07/21 0323 04/05/21 2320 CALCIUM 8.2* 8.2* No results for input(s): PT, INR, PTT in the last 168 hours. No results for input(s): CK, TROPONINT in the last 168 hours. FSBG Trend No results for input(s): POCGLU in the last 72 hours. MICRO: No results for input(s): URINECULTURE in the last 720 hours. No results for input(s): GRAMSTAIN, BFCX, LOWERRESPCX, TISSUECX in the last 720 hours. No results for input(s): BLOODCX in the last 720 hours. ECG: No results for input(s): DIAGLINE, QTCCALC in the last 720 hours. VASCULAR: No results for input(s): VBTEXTRPT in the last 720 hours. IMAGING: No results found for this visit on 04/05/21. Inpatient Medications: Scheduled ??? [START ON 04/08/2021] Vancomycin Level - MAR Order Reminder NOT APPLICABLE Once ??? aspirin 325 mg Oral Daily ??? buPROPion 100 mg Oral BID ??? busPIRone 10 mg Oral TID ??? calciTRIoL 0.25 mcg Oral BID ??? citalopram 20 mg Oral Daily ??? furosemide 80 mg Oral Daily ??? levothyroxine 250 mcg Oral QAM ??? montelukast 10 mg Oral Nightly ??? spironolactone 25 mg Oral Daily ??? sodium chloride 0.9 % (flush) 5 mL Intravenous BID ??? vancomycin 2 g Intravenous Q12H ??? lidocaine 3 patch Transdermal Q24H And ??? lidocaine 1 patch Transdermal Q24H Continuous infusions: PRN: ketorolac, ipratropium-albuteroL, calcium carbonate, fluticasone propionate, sodium chloride 0.9 % (flush), lidocaine, acetaminophen, HYDROmorphone, ondansetron Assessment: 65 year old woman with hx of pulmonary HTN, HFpEF, DAVID, bilateral LE edema, prosthetic right knee, and obesity (BMI 80) who presents to [facility] 04[facility] with RLE ulcer pain and discharge, admitted for purulent cellulitis with rapid progression of erythema and proximity to prosthetic joint Interval History: Initially started on Vanc/Zosyn in ED. MRSA PCR done with high suspicion for staph infection. Zosyn discontinued 04/06 and continued on vancomycin while awaiting MRSA PCR results. Antibiotic coverage was narrowed to cefazolin once PCR was negative. Wound care recommended dressing changes by bedside RN 3x/week with cleaning and mepilex Ag dressings. Wound care will evaluate wound 1x week. Plan: #Purulent cellulitis of RLE -rapid progression of erythema -proximity to prosthetic right knee, low concern for septic arthritis or PJI. Low concern for abscess or OM at this time -monitor on empiric Zosyn (D/C 04/06), Vancomycin (D/C 04/07) (pharmacy to dose) Cefazolin started 04/07 -check MRSA screen-negative 04/07 -CRP 5.8, added on ESR -Analgesics as needed for dressing changes #obstructive sleep apnea requiring nocturnal CPAP-chronic #obesity hypoventilation syndrome -patient is using her home device and settings -monitor need for continued/additional respiratory involvement given risk for compromise due to limited mobility and body habitus IV access/ MIVF PIV Tubes/ Drains none DVT prophylaxis PT/OT/BOBBIN DUMPER Consulted Wound care Following Anticipated Disposition Home with wound care follow up Team Pager (MD Coverage 07/03): [phone] Family Update Message left 04/07 PCP Alphonso Cerna MD SHARED VISIT This patient was seen in conjunction with Sunny Hebert MD as part of a shared visit. Hina Conley, DEISY 04/07/2021 Associated attestation - Sunny Hebert MD - 04/07/2021 4:55 PM EDT Attending Shared Visit Attestation This patient was seen in conjunction with Hina Conley APRN as part of a shared visit. Portion(s) of the visit which I personally performed include: Pain in leg improved. Less purulent exudate present on leg. Switch to cefazolin today, anticipate Keflex tomorrow. I certify that I am a [facility] credentialed attending provider with admitting privileges and that the patient meets or has met medical necessity to require an inpatient IPI level of care meeting a minimum of two midnights or is on the [facility] inpatient only procedure list (status C) due to: severe purulent cellulitis requiring IV antibiotics Jessica Nick RN - 04/07/2021 2:30 PM EDT Call Center Associate attempted to speak with Radha regarding discharge planning. Unavailable. CM to continue to monitor. IVETH Loredo Pager: [phone] Jessica Nick RN - 04/07/2021 11:28 AM EDT Call Center Associate attempted to speak with Radha regarding discharge planning. Unavailable. CM to continue to monitor. IVETH Loredo Bandar Up RN - 04/06/2021 5:54 PM EDT OUTCOME EVALUATION NOTE: OUTCOME SUMMARY: VSS. NC 3.5L. RRR. Afebrile. Pain well controlled. Intermittent nausea, x1 prn administered. Dressing change x1 tolerated well, without PRN. MRSA nasal swab sent. PLAN MOVING FORWARD: Awaiting results review. Monitor for signs and symptoms of infection, bleeding, and pain. Encourage IS. INDIVIDUALIZED FALL PREVENTION INTERVENTIONS: Patient-specific fall risk factors per assessment: [current deficits]: IV lines, recent surgery, generalized weakness, chronic condition, age extreme. Assistance [level of assistance required for transfers and ambulation]: 1A w/ FWW. Supervision [direct monitoring required during toileting and ADLs]: Hands on. Surveillance [continuous indirect monitoring]: Call novak in reach, purposeful rounding, davina. Patient-specific fall prevention interventions for sensory deficits provided, if applicable: [X] YesLighting adjusted for tasks, nonskid socks when out of bed. CPG GOAL OUTCOME EVALUATION: Ongoing. Thank you for the opportunity to participate in this patient's care. Olga Wells, PT - 04/06/2021 1:37 PM EDT Physical Therapy Evaluation Patient profile: Radha Masterson is a 65 y.o. female admitted on 04/05/2021 with hx of pulmonary HTN, HFpEF, DAVID, bilateral LE edema, prosthetic right knee,??and obesity (BMI 80) who presents to [facility] with RLE ulcer pain and discharge. She states that for the past 3-4 days her RLE ulcer has been becoming more painful. The discharge used to be clear, but now is yellow with a foul odor. She has daily VNA wound care and they were also concerned about the appearance of her wound. She denies fever, chills, nausea/vomiting, and chest pain. She has chronic SOB on 3L of O2, but thinks it might be a bit worse today. Her LE edema is chronic and she thinks it has been about the same for months. Per MD note. Patient with the following active problems: Past Medical History: Diagnosis Date ??? JODY (acute kidney injury) 01/16/2017 ??? Antiplatelet or antithrombotic long-term use ASA 325 bid ??? Asthma ??? Depression ??? Hypertension ??? Mental health problem depression & anxiety - on medication for ??? Multinodular goiter 09/02/2020 ??? DAVID treated with BiPAP ??? Oxygen dependent 2L during the day and 5L @ night ??? PAH (pulmonary artery hypertension) ??? PE (pulmonary thromboembolism) ??? Pulmonary emboli years ago ??? Thyroid nodule ??? Transfusion history not recently-last in 2006 ??? Vertigo left leg gives out-in wheelchair most of the time. Uses walker when walks a very short distance Past Surgical History: Procedure Laterality Date ??? CREATED BY INTERFACE COLONOSCOPY (ENDO) Procedure Date: 08/23/2007 ??? CREATED BY INTERFACE DEBRIDEMENT TISSUE,MUSCLE,BONE / LEFT/KNEE Procedure Date: 08/05/2005 ??? CREATED BY INTERFACE DEBRIDEMENT TISSUE,MUSCLE,BONE / LEFT/KNEE Procedure Date: 04/15/2005 ??? CREATED BY INTERFACE DEBRIDEMENT TISSUE,MUSCLE,BONE / LEFT/KNEE/VAC DRESSING APPL. Procedure Date: 12/17/2005 ??? CREATED BY INTERFACE IRRIGATION & JERROD.SUBCU & MUSCLE (OPEN) / LEFT/LEG Procedure Date: 04/18/2005 ??? CREATED BY INTERFACE IRRIGATION & DEBRIDEMENT SKIN, FULL THICKNESS / RIGHT/KNEE Procedure Date: 07/20/2008 ??? CREATED BY INTERFACE STAB PHLEBECTOMY NEHAL VEINS 1 EXTREMITY 10-20 INCISIONS / LEFT Procedure Date: 10/01/2004 ??? CREATED BY INTERFACE TOTAL KNEE ARTHROPLASTY / LEFT/AMAN LPS Procedure Date: 03/29/2005 ??? CREATED BY INTERFACE TOTAL KNEE ARTHROPLASTY / RIGHT Procedure Date: 05/07/2008 ??? CREATED BY INTERFACE TOTAL KNEE PROSTHESIS,REMOVAL Procedure Date: 08/05/2005 ??? CREATED BY INTERFACE TOTAL KNEE PROSTHESIS,REMOVAL / LEFT Procedure Date: 04/15/2005 ??? CREATED BY INTERFACE TOTAL KNEE PROSTHESIS,REMOVAL / LEFT/INTERSPACE SPACER Procedure Date: 02/02/2007 ??? CREATED BY INTERFACE TOTAL KNEE PROSTHESIS,REMOVAL / LEFT/IRRIGATION & DEBRIDEMENT/INTERSPACE SPACER Procedure Date:05/25/2005 ??? CREATED BY INTERFACE TOTAL KNEE REVISION ARTHROPLASTY, ONE COMPONENT / LEFT Procedure Date: 04/18/2005 ??? CREATED BY INTERFACE TOTAL KNEE REVISION ARTHROPLASTY,COMPLETE Procedure Date: 03/16/2007 ??? CREATED BY INTERFACE TOTAL KNEE REVISION ARTHROPLASTY,COMPLETE / LEFT/AMAN LCCK/AMAN LPS/ANTIBIOTIC CEMENT ProcedureDate: 11/23/2005 ??? JOINT REPLACEMENT bilateral knees ??? PRG EMG, LARYNX N/A 03/03/2021 FACIAL NERVE MONITORING, SETUP LARYNGEAL (WRVU 1.57) performed by Lisa Singh MD at [facility] MAIN OR ??? PRG US GUIDE INTRAOP N/A 03/03/2021 ULTRASONIC GUIDANCE, INTRAOP (WRVU 1.2) performed by Lisa Singh MD at [facility] MAIN OR ??? PRO THYROIDECTOMY=SUBSTERNAL, TRANSCERV Bilateral 03/03/2021 THYROIDECTOMY, INCL. SUBSTERNAL, CERVICAL APPROACH (WRVU 17.62) performed by Lisa Singh MD at [facility] MAIN OR Active Non-Hospital Problems Diagnosis ??? Lymphedema of both lower extremities ??? Venous insufficiency of both lower extremities ??? Venous stasis ulcer of right calf limited to breakdown of skin ??? S/P total thyroidectomy ??? BMI greater than 70 ??? Vitamin D deficiency ??? Dependence on continuous supplemental oxygen ??? Anxiety ??? Intertrigo ??? Grief at loss of child ??? Depression ??? DAVID treated with BiPAP ??? Pulmonary hypertension ??? Musculoskeletal chest pain ??? Pleural effusion on right Social History: Home set-up: Lives in single-level home with ramp to enter Bathroom set-up: tub-shower, but typically uses commode Stairs: none Baseline mobility: utilizes power chair to get around house and town, does cooking & cleaning. Sponge-bathes and uses commode. Equipment at home: power chair Support at home: Teenage grandchildren are frequently over. Sister comes by to help Patient bathe every once and a while. Fall history: Reports I fell the other day, I fall all the time Precautions/Special Considerations: BMI 79, chronically on 3L O2 at home, full code Lines: PIV, O2 Activity Orders: up with assistance Diet: regular diet Mobility and Positioning Recommendations: ?? Pt. to utilize front-wheeled walker and supervision for ambulation and transfers with nursing. ?? Please encourage up to chair for meal times as able. ?? Pt encouraged to ambulate frequently with staff, getting into the bathroom for toileting, using power chair out in aguilar >/= 3 times daily as able. Subjective: ???I want to go back to bed, I can move fine, why do you need to see me move?? Objective: Pt seen for evaluation today. Pain: reports constant soreness in RLE (unrated) Vital Signs: consistently within appropriate limits on 3.5L O2 Mental Status: alert, oriented to person, place, and time, agitated and uncooperative Vision: unremarkable Skin: ulcer on RLE Musculoskeletal: ROM: appears WFL, Patient not agreeable to formal testing Strength: appears WFL, Patient not agreeable to formal testing Sensation: Patient notes no abnormalities, not agreeable to formal testing Bed Mobility: HOB flat Supine to Sit: IND Sit to Supine: unobserved, Pt left sitting EOB Transfers: Sit to Stand: IND w/ SBA and no AD Stand to Sit: IND w/ SBA and no AD Bed to Chair: not performed Gait: Pt not agreeable to participating Distance: n/a Device used: n/a Level of assist: n/a Gait mechanics: n/a Balance: Sitting Static: good Sitting Dynamic: good Standing Static: appears good, Pt able to stand independently without exhibiting LOB Standing Dynamic / Gait: appears good, Pt able to transition to standing independently without exhibiting LOB Education: patient has been educated on Bed mobility, Transfers, Role of therapy and Discharge planning and verbalize understanding. Patient status, treatment, and mobility recommendations discussed with nursing. Assessment: Radha Masterson was seen today for physical therapy evaluation. Patient was agreeable to answering questions, but became very agitated when PT requested her to mobilize. Patient quickly demonstrated that she has the capabilities to perform bed mobility and sit <> stand transfers independently, but otherwise refused to participate, eventually telling PT to get out of here! because shewanted to take a nap. As a result, it was difficult to gather a complete picture of Patient's level of function. Patient presents with pain and anxiety, limiting safety. It was difficult to assess other impairments such as strength, endurance, range of motion, etc due to Patient's refusals. Patient isresolute about discharging home with home health, but whether or not she has the capabilities to discharge home safely remains to be seen. As a result, will benefit from continued skilled therapy services while in the hospital, so that therapy staff can further evaluate her ability level and needs. Discharge Recommendations: Based on the current findings, Anticipated Discharge Disposition (PT): to be determined pending medical status & functional progression when medically ready for hospital discharge. Consult Recommendations: No other consults recommended at this time. Equipment needs: Anticipated Equipment Needs at Discharge (PT): None Goals: To be achieved by 04/17/21: 1. Pt. to perform bed mobility independently. 2. Pt. to perform STS transfers independently using no assistive device. 3. Pt to perform transfers to power chair independently using no assistive device 4. Pt. to ambulate 150 feet with modified independence using a LRAD. 5. Pt to demonstrate safe technique during transfers, requiring minimal cuing from PT Plan: Therapy Frequency (PT): 2-4 times/wk for therapy including gait training, patient/family education, transfer training and wheelchair managment/propulsion training. Patient/family understand and agree with plan as stated above. 2017 PT Evaluation Code Rationale: ?? Diagnosis & Pertinent Co-Morbidities, personal factors, and present illness affecting Plan ofCare: (see above); Additional personal factors or co- morbidities that impact plan: ?? Total # of Factors: 0 1-2 3+ x ?? Examination of body system impairments, functional limitations and behaviors, and/or participation restrictions. Addressing 1-2 elements Addressing 3 + elements x Addressing 4 + elements ?? Clinical presentation: See assessment above. Stable/Uncomplicated Evolving/Fluctuating Symptoms Unstable/Unpredictable x ?? Clinical decision making of low complexity based on pt's functional performance as outlined in this evaluation. Time IN / OUT: 3547-0174 Total Minutes, Physical Therapy: 15 (evaluation, low complexity) Olga Wells Pager: [phone] Physical Therapy Inpatient Rehabilitation Department Carolina Casey, OT - 04/06/2021 1:08 PM EDT Occupational Therapy Evaluation Patient profile: Radha Masterson is a 65 y.o. female admitted on 04/05/2021 with hx of pulmonary HTN, HFpEF, DAVID, bilateral LE edema, prosthetic right knee, and obesity (BMI 80) who presents to [facility] with RLE ulcer pain and discharge. She states that for the past 3-4 days her RLE ulcer has been becoming more painful. The discharge used to be clear, but now is yellow with a foul odor. She has dailyVNA wound care and they were also concerned about the appearance of her wound. She denies fever, chills, nausea/vomiting, and chest pain. She has chronic SOB on 3L of O2, but thinks it might be a bit worse today. Her LE edema is chronic and she thinks it has been about the same for months. Per MD note. Past Medical History: Diagnosis Date ??? JODY (acute kidney injury) 01/16/2017 ??? Antiplatelet or antithrombotic long-term use ASA 325 bid ??? Asthma ??? Depression ??? Hypertension ??? Mental health problem depression & anxiety - on medication for ??? Multinodular goiter 09/02/2020 ??? DAVID treated with BiPAP ??? Oxygen dependent 2L during the day and 5L @ night ??? PAH (pulmonary artery hypertension) ??? PE (pulmonary thromboembolism) ??? Pulmonary emboli years ago ??? Thyroid nodule ??? Transfusion history not recently-last in 2006 ??? Vertigo left leg gives out-in wheelchair most of the time. Uses walker when walks a very short distance Past Surgical History: Procedure Laterality Date ??? CREATED BY INTERFACE COLONOSCOPY (ENDO) Procedure Date: 08/23/2007 ??? CREATED BY INTERFACE DEBRIDEMENT TISSUE,MUSCLE,BONE / LEFT/KNEE Procedure Date: 08/05/2005 ??? CREATED BY INTERFACE DEBRIDEMENT TISSUE,MUSCLE,BONE / LEFT/KNEE Procedure Date: 04/15/2005 ??? CREATED BY INTERFACE DEBRIDEMENT TISSUE,MUSCLE,BONE / LEFT/KNEE/VAC DRESSING APPL. Procedure Date: 12/17/2005 ??? CREATED BY INTERFACE IRRIGATION & JERROD.SUBCU & MUSCLE (OPEN) / LEFT/LEG Procedure Date: 04/18/2005 ??? CREATED BY INTERFACE IRRIGATION & DEBRIDEMENT SKIN, FULL THICKNESS / RIGHT/KNEE Procedure Date: 07/20/2008 ??? CREATED BY INTERFACE STAB PHLEBECTOMY NEHAL VEINS 1 EXTREMITY 10-20 INCISIONS / LEFT Procedure Date: 10/01/2004 ??? CREATED BY INTERFACE TOTAL KNEE ARTHROPLASTY / LEFT/AMAN LPS Procedure Date: 03/29/2005 ??? CREATED BY INTERFACE TOTAL KNEE ARTHROPLASTY / RIGHT Procedure Date: 05/07/2008 ??? CREATED BY INTERFACE TOTAL KNEE PROSTHESIS,REMOVAL Procedure Date: 08/05/2005 ??? CREATED BY INTERFACE TOTAL KNEE PROSTHESIS,REMOVAL / LEFT Procedure Date: 04/15/2005 ??? CREATED BY INTERFACE TOTAL KNEE PROSTHESIS,REMOVAL / LEFT/INTERSPACE SPACER Procedure Date: 02/02/2007 ??? CREATED BY INTERFACE TOTAL KNEE PROSTHESIS,REMOVAL / LEFT/IRRIGATION & DEBRIDEMENT/INTERSPACE SPACER Procedure Date:05/25/2005 ??? CREATED BY INTERFACE TOTAL KNEE REVISION ARTHROPLASTY, ONE COMPONENT / LEFT Procedure Date: 04/18/2005 ??? CREATED BY INTERFACE TOTAL KNEE REVISION ARTHROPLASTY,COMPLETE Procedure Date: 03/16/2007 ??? CREATED BY INTERFACE TOTAL KNEE REVISION ARTHROPLASTY,COMPLETE / LEFT/AMAN LCCK/AMAN LPS/ANTIBIOTIC CEMENT ProcedureDate: 11/23/2005 ??? JOINT REPLACEMENT bilateral knees ??? PRG EMG, LARYNX N/A 03/03/2021 FACIAL NERVE MONITORING, SETUP LARYNGEAL (WRVU 1.57) performed by Lisa Singh MD at [facility] MAIN OR ??? PRG US GUIDE INTRAOP N/A 03/03/2021 ULTRASONIC GUIDANCE, INTRAOP (WRVU 1.2) performed by Lisa Singh MD at [facility] MAIN OR ??? PRO THYROIDECTOMY=SUBSTERNAL, TRANSCERV Bilateral 03/03/2021 THYROIDECTOMY, INCL. SUBSTERNAL, CERVICAL APPROACH (WRVU 17.62) performed by Lisa Singh MD at [facility] MAIN OR Social History: Home Setup: pt lives alone in a single level apartment with a ramp to enter. She has two grandchildren, ages 13 and 17, that stay over frequently but not present all the time. Bathroom has a tub shower Functional Status: pt reports being independent with most ADLs. She has help from her sister 2/2 difficulty transferring in/out of tub but typically, she sponge bathes. Pt is independent with householdchores. She uses a power w/c and stand pivot transfers in/out of w/c. She uses a commode frequently because she cannot fit her power w/c into the bathroom. Pt goes to the grocery store and runs errandsby. Baseline 3L O2 Equipment at home: commode, power w/c, hospital bed, miniature telecommunicator Fall history: reports many falls in the past 3 months, reports most recent fall was last week, denies LOB or striking head when falling Precautions/Special Considerations: fall risk, full code, up with assistance, supplemental O2 Subjective: I fall all the time You guys are annoying... get out of here! Objective: Seen today for OT evaluation in conjunction with PT. ??? Vital Signs o HR: 73 bpm o SpO2: 93% on RA on 3.5L ??? Pain: reports constant BLE pain, did not rate severity ??? Cognitive Status/Behavior o Behavior / Mood: alert, cooperative and irritable as session continued. She demanded that staff leave the room after standing at EOB and being asked to mobilize o Alert and oriented to: person, place, time and situation o Follows commands: multi step and requires increased time o Attention: WFL o Safety awareness: decreased insight into deficits ? ? Vision & Perception o Unable to obtain; pt was not wearing corrective lenses ?? Communication o WFL ??? Musculoskeletal o ROM: BUEs grossly WFL o Strength: BUEs grossly WFL o Sensation: denied N/T o Skin: RLE wrapped in bandage ??? Activities of Daily Living: o Self-feeding: independent as indicated by good BUE ROM, strength, and coordination o Grooming: independent as indicated by good BUE ROM, strength, and coordination o Dressing: pt declined; has miniature telecommunicator o Bathing: pt declined o Toileting: pt declined ??? Functional Mobility: o Supine to sit: independent with HOB elevated o Sit to stand: supervision o Pt's power w/c has been brought from home. She declined to transfer to chair or ambulate to the bathroom. However per pt and RN, pt has ambulated to and from the bathroom using FWW o Stand to sit: supervision ??? Balance o Sitting balance: good o Standing balance: fair Education: patient have been educated on Role of occupational therapy/rehabilitation, Precautions/Protocol, Functional Mobility, Recommendations and Discharge planning and needs reinforcement. Patient status, treatment, and mobility recommendations discussed with nursing. Pt declined to transition to supine and was left sitting EOB with alarm set. She set the alarm off shortly afterwards. Alarm re-set and RN notified. Assessment: Pt has been seen for occupational therapy evaluation in conjunction with PT. Radha Magana Young presents with RLE ulcer resulting in increased pain, purulent discharge, and concern for cellulitis. Although initially cooperative with gentle encouragement, pt became increasingly more irritable anddeclined to continue evaluation. She performed bed mobility and stood from EOB with SBA. Pt declinedall ADLs and reports being independent with self care. Pt has an extensive fall history which is concerning as she expects return home. Despite the limited evaluation, it is anticipated that she is nearing her functional baseline. Recommend that she has a daily check-in at home for safety measures. Plan to see 1-3 more times to ensure safe discharge home. Pt would benefit from further inpatient OT interventions to address performance deficits and maximize participation and independence with occupations of daily living. Equipment needs at discharge: TBD Anticipated Discharge Disposition (OT): home with daily check in Other Recommendations: ?? Utilize upright chair position using bed features or transfer to recliner chair as appropriate with 1x assist and FWW or power w/c from home, ambulate as tolerated ?? Encourage participation in ADL's by providing set up A on tray table and physical assist only as needed Other Recommendations: No other consults recommended at this time Goals: To be achieved by 04/21/2021. Pt will ambulate to the bathroom with modified independence, assistive device as needed. Pt will complete LB dressing with modified independence, AE as needed. Pt will complete all aspects of toilet routine (transfer, hygiene, clothing management) with modified independence. Pt will perform 1 simple IADL task with modified independence and assistive device as needed. Plan: OT: Therapy Frequency (OT): 1-3 more times Planned OT interventions: Role of occupational therapy/rehabilitation, Transfers, Assistive device/technique, ADL, Precautions/Protocol, Functional Mobility, Activity pacing/Energy conservation, Balance, Recommendations and Discharge planning. Total Minutes, Occupational Therapy: 12 (low complexity eval) 2017 OT Evaluation Code Rationale: ?? Diagnosis & Pertinent Co-Morbidities affecting Plan of Care: see PMHx ?? Occupational Profile & Client History: Brief Expanded Extensive x ?? Assessment of Occupational Performance: 1-3 performance deficits x 3-5 performance deficits 5 + performance deficits ?? Clinical Decision Making: Low Moderate High x Clinical decision making of low complexity using standardized patient assessment instrument and measurable assessment of functional outcome. Carolina Casey OTR/L Pager [phone] Occupational Therapy Rehabilitation Department Jose Khalil, [facility] - 04/06/2021 1:24 AM EDT TelePharmacy Home Medication List Update for Medication Reconciliation 04/06/21 1:24 AM Radha Masterson 1955 Allergies Allergen Reactions ??? Red Blood Cells Other (See Comments) Antibodies-Difficult to Crossmatch DO NOT REMOVE Please contact the Blood Bank at [phone] for questions. ??? Iodine And Iodide Containing Products rash ??? Oxycodone Rash ??? Morphine Rash Other reaction(s): PRURITIS ??? Person Interviewed: patient ??? Quality of Interview/accuracy of medication list: good ??? Sources used to compile medication list: [x] Epic medication list [x] SureScripts [] PCP/Specialtist list [] Retail pharmacy [x] Patient list [] MAR [] Other ??? Changes made to home medication list: o Additions: - None o Deletions: - None o Changes: - None ??? Additional Notes: Patient states that she has not had prescriptions for Ergocalciferol or Gabaprntin for a while and is not sure when she last took these ??? Recommended changes: Review Ergo and Gabapentin to determine if still needed The home medication list is now updated to the best of my knowledge and is ready to be reconciled bythe provider. Please contact the TelePharmacy Medication Reconciliation Pharmacist at [phone] for any questions. Jose Khalil RPH documented in this encounter H&P Notes Elliott Goodson MD - 04/06/2021 3:38 AM EDT Inpatient Hospital Medicine - Admission Note Problem List: Active Hospital Problems Diagnosis ??? Cellulitis of right leg Resolved Hospital Problems No resolved problems to display. Active Non-Hospital Problems Diagnosis ??? Lymphedema of both lower extremities ??? Venous insufficiency of both lower extremities ??? Venous stasis ulcer of right calf limited to breakdown of skin ??? S/P total thyroidectomy ??? BMI greater than 70 ??? Vitamin D deficiency ??? Dependence on continuous supplemental oxygen ??? Anxiety ??? Intertrigo ??? Grief at loss of child ??? Depression ??? DAVID treated with BiPAP ??? Pulmonary hypertension ??? Musculoskeletal chest pain ??? Pleural effusion on right ID: 65 y.o. Female presents to [facility] [place] pain and discharge History of Present Illness: HPI 65 year old woman with hx of pulmonary HTN, HFpEF, DAVID, bilateral LE edema, prosthetic right knee, and obesity (BMI 80) who presents to [facility] 04/05 with RLE ulcer pain and discharge. She states that for the past 3-4 days her RLE ulcer has been becoming more painful. The discharge used to be clear, but now is yellow with a foul odor. She has daily [facility] wound care and they were also concerned about theappearance of her wound. She denies fever, chills, nausea/vomiting, and chest pain. She has chronic SOB on 3L of O2, but thinks it might be a bit worse today. Her LE edema is chronic and she thinks it has been about the same for months. She has difficulty ambulating at baseline and uses a mobility scooter. In ER: T 37.0, HR 86, BP 169/84, R 20, O2 95% room air WBC 9.5 Received Zosyn 4.5g, vancomycin IV 2g, ketorolac IV 30mg Review of Systems: Review of Systems Constitutional: Negative for fever. HENT: Negative for congestion and sore throat. Eyes: Negative for visual disturbance. Respiratory: Positive for shortness of breath. Cardiovascular: Positive for leg swelling. Negative for chest pain. Gastrointestinal: Negative for abdominal pain, nausea and vomiting. Genitourinary: Negative for dysuria. Musculoskeletal: Negative for back pain. Skin: Positive for wound. Neurological: Negative for headaches. Hematological: Does not bruise/bleed easily. Psychiatric/Behavioral: Irritable Past Medical and Surgical History: Past Medical History: Diagnosis Date ??? JODY (acute kidney injury) 01/16/2017 ??? Antiplatelet or antithrombotic long-term use ASA 325 bid ??? Asthma ??? Depression ??? Hypertension ??? Mental health problem depression & anxiety - on medication for ??? Multinodular goiter 09/02/2020 ??? DAVID treated with BiPAP ??? Oxygen dependent 2L during the day and 5L @ night ??? PAH (pulmonary artery hypertension) ??? PE (pulmonary thromboembolism) ??? Pulmonary emboli years ago ??? Thyroid nodule ??? Transfusion history not recently-last in 2006 ??? Vertigo left leg gives out-in wheelchair most of the time. Uses walker when walks a very short distance Past Surgical History: Procedure Laterality Date ??? CREATED BY INTERFACE COLONOSCOPY (ENDO) Procedure Date: 08/23/2007 ??? CREATED BY INTERFACE DEBRIDEMENT TISSUE,MUSCLE,BONE / LEFT/KNEE Procedure Date: 08/05/2005 ??? CREATED BY INTERFACE DEBRIDEMENT TISSUE,MUSCLE,BONE / LEFT/KNEE Procedure Date: 04/15/2005 ??? CREATED BY INTERFACE DEBRIDEMENT TISSUE,MUSCLE,BONE / LEFT/KNEE/VAC DRESSING APPL. Procedure Date: 12/17/2005 ??? CREATED BY INTERFACE IRRIGATION & JERROD.SUBCU & MUSCLE (OPEN) / LEFT/LEG Procedure Date: 04/18/2005 ??? CREATED BY INTERFACE IRRIGATION & DEBRIDEMENT SKIN, FULL THICKNESS / RIGHT/KNEE Procedure Date: 07/20/2008 ??? CREATED BY INTERFACE STAB PHLEBECTOMY NEHAL VEINS 1 EXTREMITY 10-20 INCISIONS / LEFT Procedure Date: 10/01/2004 ??? CREATED BY INTERFACE TOTAL KNEE ARTHROPLASTY / LEFT/AMAN LPS Procedure Date: 03/29/2005 ??? CREATED BY INTERFACE TOTAL KNEE ARTHROPLASTY / RIGHT Procedure Date: 05/07/2008 ??? CREATED BY INTERFACE TOTAL KNEE PROSTHESIS,REMOVAL Procedure Date: 08/05/2005 ??? CREATED BY INTERFACE TOTAL KNEE PROSTHESIS,REMOVAL / LEFT Procedure Date: 04/15/2005 ??? CREATED BY INTERFACE TOTAL KNEE PROSTHESIS,REMOVAL / LEFT/INTERSPACE SPACER Procedure Date: 02/02/2007 ??? CREATED BY INTERFACE TOTAL KNEE PROSTHESIS,REMOVAL / LEFT/IRRIGATION & DEBRIDEMENT/INTERSPACE SPACER Procedure Date:05/25/2005 ??? CREATED BY INTERFACE TOTAL KNEE REVISION ARTHROPLASTY, ONE COMPONENT / LEFT Procedure Date: 04/18/2005 ??? CREATED BY INTERFACE TOTAL KNEE REVISION ARTHROPLASTY,COMPLETE Procedure Date: 03/16/2007 ??? CREATED BY INTERFACE TOTAL KNEE REVISION ARTHROPLASTY,COMPLETE / LEFT/AMAN LCCK/AMAN LPS/ANTIBIOTIC CEMENT ProcedureDate: 11/23/2005 ??? JOINT REPLACEMENT bilateral knees ??? PRG EMG, LARYNX N/A 03/03/2021 FACIAL NERVE MONITORING, SETUP LARYNGEAL (WRVU 1.57) performed by Lisa Singh MD at [facility] MAIN OR ??? PRG US GUIDE INTRAOP N/A 03/03/2021 ULTRASONIC GUIDANCE, INTRAOP (WRVU 1.2) performed by Lisa Singh MD at [facility] MAIN OR ??? PRO THYROIDECTOMY=SUBSTERNAL, TRANSCERV Bilateral 03/03/2021 THYROIDECTOMY, INCL. SUBSTERNAL, CERVICAL APPROACH (WRVU 17.62) performed by Lisa Singh MD at [facility] MAIN OR Prior To Admission Medications: (Not in a hospital admission) Allergies: Allergies Allergen Reactions ??? Red Blood Cells Other (See Comments) Antibodies-Difficult to Crossmatch DO NOT REMOVE Please contact the Blood Bank at [phone] for questions. ??? Iodine And Iodide Containing Products rash ??? Oxycodone Rash ??? Morphine Rash Other reaction(s): PRURITIS Family History: Family History Problem Relation Age of Onset ??? Diabetes Mother ??? Diabetes Maternal Aunt ??? Diabetes Paternal Aunt ??? Diabetes Maternal Grandmother ??? Diabetes Paternal Grandmother ??? Sleep Apnea Brother ??? Sleep Apnea Niece Social History and Habits: Social History Socioeconomic History ??? Marital status: Single Spouse name: Not on file ??? Number of children: Not on file ??? Years of education: Not on file ??? Highest education level: Not on file Occupational History ??? Not on file Tobacco Use ??? Smoking status: Former Smoker Packs/day: 3.00 Years: 40.00 Pack years: 120.00 Types: Cigarettes Quit date: 10/08/2010 Years since quittin.5 ??? Smokeless tobacco: Never Used Vaping Use ??? Vaping Use: Never used Substance and Sexual Activity ??? Alcohol use: No ??? Drug use: No ??? Sexual activity: Not Currently Other Topics Concern ??? Not on file Social History Narrative Lives in [facility]. Daughter lives with her for now. Has [...] of Exercise per Session: Not on file Immunizations: Immunization History Administered Date(s) Administered ??? Influenza PF, Split 05/21/2014 ??? Influenza Vaccine, Whole 06/10/2005, 06/22/2006, 06/15/2008 ??? Pneumococcal Polyvalent 23 04/15/2000, 11/29/2005 ??? Td, adult 08/15/2003 Physical Exam: Last Set of Vitals and range of vitals over past 24 hours: Last value Range last 24 hrs Temperature Temp: 37 ??C (98.6 ??F) Temp: [37 ??C (98.6 ??F)] Heart Rate Heart Rate: 86 Heart Rate: [86] Blood Pressure BP: 169/84 BP: (169)/(84) Respiratory Rate Resp: 20 Resp: [20] SpO2 SpO2: 94 % SpO2: [94 %-100 %] Body mass index is 79.71 kg/m??. Physical Exam Constitutional: Appearance: She is obese. HENT: Head: Normocephalic and atraumatic. Mouth/Throat: Mouth: Mucous membranes are moist. Eyes: Conjunctiva/sclera: Conjunctivae normal. Cardiovascular: Rate and Rhythm: Normal rate and regular rhythm. Heart sounds: Normal heart sounds. Pulmonary: Effort: Pulmonary effort is normal. Breath sounds: Normal breath sounds. Comments: Speaking in full sentences Abdominal: Comments: Protuberant abdomen Musculoskeletal: Cervical back: Normal range of motion. Right lower leg: Edema present. Left lower leg: Edema present. Comments: On the anterior surface of the RLE there is a [id number] chronic venous stasis wound with foul-smelling white-yellow discharge. There is surrounding warmth, erythema and tenderness. Skin: General: Skin is warm and dry. Capillary Refill: Capillary refill takes less than 2 seconds. Neurological: General: No focal deficit present. Mental Status: She is alert and oriented to person, place, and time. Mental status is at baseline. Psychiatric: Behavior: Behavior normal. Thought Content: Thought content normal. Judgment: Judgment normal. Laboratory (Last 24 Hours): Recent Results (from the past 24 hour(s)) Basic Metabolic Panel (non-fasting) Result Value Ref Range Glucose Lvl 98 65 - 199 mg/dL BUN 13 8 - 18 mg/dL Creatinine 0.62 (L) 0.70 - 1.20 mg/dL Sodium 142 135 - 145 mmol/L Potassium 4.0 3.5 - 5.0 mmol/L Chloride 107 98 - 107 mmol/L CO2 26 22 - 31 mmol/L Anion Gap 9 5 - 15 mmol/L Calcium 8.2 (L) 8.5 - 10.5 mg/dL Estimated GFR 95 >=60 mL/min/1.73 m?? Hemogram Result Value Ref Range WBC 9.5 4.0 - 9.5 x10(3)/mcL RBC 4.79 4.00 - 5.21 x10(6)/mcL Hemoglobin 13.6 11.7 - 15.5 gm/dL Hematocrit 41.1 35.7 - 45.8 % MCV 85.8 82.6 - 94.4 fL MCH 28.4 27.1 - 32.0 pg MCHC 33.1 31.7 - 35.0 gm/dL Platelets 263 145 - 357 x10(3)/mcL RDWSD 43.5 37.0 - 46.0 fL RDWCV 13.9 11.5 - 14.1 % MPV 10.5 7.6 - 12.9 fL nRBC % Auto 0.0 % nRBC Abs Auto 0.000 0.000 - 0.000 x10(3)/mcL Differential, Automated Result Value Ref Range Neutrophils % 58.6 % Neutr Abs (ANC) 5.56 1.70 - 6.10 x10(3)/mcL Lymphocytes % 26.6 % Lymphocytes Abs 2.5 0.9 - 3.2 x10(3)/mcL Monocytes % 9.3 % Monocyte Abs 0.9 0.3 - 0.9 x10(3)/mcL Eosinophils % 4.6 % Eosinophils Abs 0.4 0.0 - 0.4 x10(3)/mcL Basophils % 0.5 % Basophils Abs 0.0 0.0 - 0.1 x10(3)/mcL Immature Gran % 0.40 % Surekha Gran Abs 0.04 0.00 - 0.04 x10(3)/mcL Gold Tube HOLD Result Value Ref Range Gold Hold Sample in lab. Microbiology: Microbiology Results (Last 30 days) No results found for the last 720 hours. Radiology: CXR - CT - Ultrasound - MRI - No results found for this visit on 04/05/21. Other Studies: EKG - 01/06/2021 Transthoracic Echocardiogram - SUMMARY: 1. Technically difficult study despite the use of echo contrast. 2. Mild concentric left ventricular hypertrophy is observed. There is normal global left ventricular systolic function. Ejection fraction is estimated to be 60%. There are no left ventricular segmental wall motion abnormalities. 3. The right ventricle is mildly dilated (not well seen). Right ventricular global systolic function is normal. 4. The left atrium is mildly dilated. 5. There is mild (1+/4+) tricuspid regurgitation present. 6. The estimated pulmonary artery systolic pressure is 52 mmHg. The estimated right atrial pressure is 8 mmHg. 7. Other details as noted below. Vascular Studies - Pulmonary Report - Endoscopy - Assessment: 65 year old woman with hx of pulmonary HTN, HFpEF, DAVID, bilateral LE edema, prosthetic right knee, and obesity (BMI 80) who presents to [facility] [place] with RLE ulcer pain and discharge, admitted for purulent cellulitis with rapid progression of erythema and proximity to prosthetic joint. I certify that the patient requires: observation care Purulent cellulitis of RLE -rapid progression of erythema -proximity to prosthetic right knee, low concern for septic arthritis or PJI. Low concern for abscess or OM at this time -monitor on empiric Zosyn, Vancomycin (pharmacy to dose) -check MRSA screen -CRP 5.8, added on ESR -analgesics Plan: Admit to Hospital Medicine Physical Therapy referral DVT Prophylaxis If currently a smoker - advised about smoking cessation and will provide smoking cessation material and support. Pneumovax and Influenza Immunizations given as needed. Discussed Advanced Directives and Code Status. The patient wishes to be Full Code. A copy of this document will be sent to the patient's Primary Care Physician and/or Referring Physician. Elliott Goodson MD 04/06/2021 documented in this encounter ED Notes Fe Garcia RN - 04/06/2021 3:12 AM EDT The patient started shaking her leg and she looked like she would fall OOB. This nurse attempted to place the side rail up to prevent the patient from falling OOB. The patient adamantly stated that shedid not want the side rail up. She stated, This is how I sleep at night right at the edge of the bed. DO NOT PUT THAT SIDE RAIL UP. This nurse did not put the side rail up as requested by the patient. The bed is low, locked, and call novak is in reach. Shiloh Kruger LPN - 04/06/2021 2:18 AM EDT Pt placed on hospital bed for comfort. Pt utilized motor wc to bathroom and back, used home bi-pap 4L. Is now resting comfortable, asking if leg dressing will be changed. Will follow up. Karine Sears MD - 04/05/2021 10:31 PM EDT ED Resident Note HPI: Radha Masterson is a 65 y.o. female with hx of pulmonary HTN, HFpEF, DAVID, bilateral LE edema and obesity who presents to the Emergency Department with c/o RLE ulcer pain and discharge. She states that forthe past 3-4 days her RLE ulcer has been becoming more painful. The discharge used to be clear, but now is yellow with a foul odor. She has daily [facility]NA wound care and they were also concerned about the appearance of her wound. She denies fever, chills, nausea/vomiting, and chest pain. She has chronic SOB on 3L of O2, but thinks it might be a bit worse today. Her LE edema is chronic and she thinks it has been about the same for months. She has difficulty ambulating at baseline and uses a mobility scooter. Pt was seen under the supervision of an attending physician. Review of Systems Constitutional: Negative for fever. HENT: Negative for congestion and sore throat. Eyes: Negative for visual disturbance. Respiratory: Positive for shortness of breath. Cardiovascular: Positive for leg swelling. Negative for chest pain. Gastrointestinal: Negative for abdominal pain, nausea and vomiting. Genitourinary: Negative for dysuria. Musculoskeletal: Negative for back pain. Skin: Positive for wound. Neurological: Negative for headaches. Hematological: Does not bruise/bleed easily. Psychiatric/Behavioral: Irritable Pertinent positives and negatives are included in the HPI, otherwise at least ten systems were reviewed and negative. Past Medical and Surgical Histories, Social History, Medications, Allergies were reviewed in the chart. Vitals: ED Triage Vitals [04/05/212032] BP: 169/84 Heart Rate: 86 Resp: 20 Temp: 37 ??C (98.6 ??F) Temp src: Oral SpO2: 95 % O2 Device: RA O2 Flow Rate (L/min): n/a Physical Exam Constitutional: Appearance: She is obese. HENT: Head: Normocephalic and atraumatic. Mouth/Throat: Mouth: Mucous membranes are moist. Eyes: Conjunctiva/sclera: Conjunctivae normal. Cardiovascular: Rate and Rhythm: Normal rate and regular rhythm. Heart sounds: Normal heart sounds. Pulmonary: Effort: Pulmonary effort is normal. Breath sounds: Normal breath sounds. Comments: Speaking in full sentences Abdominal: Comments: Protuberant abdomen Musculoskeletal: Cervical back: Normal range of motion. Right lower leg: Edema present. Left lower leg: Edema present. Comments: On the anterior surface of the RLE there is a [id number] chronic venous stasis wound with foul-smelling white-yellow discharge. There is surrounding warmth, erythema and tenderness. Skin: General: Skin is warm and dry. Capillary Refill: Capillary refill takes less than 2 seconds. Neurological: General: No focal deficit present. Mental Status: She is alert and oriented to person, place, and time. Mental status is at baseline. Psychiatric: Behavior: Behavior normal. Thought Content: Thought content normal. Judgment: Judgment normal. ED Course: I have reviewed labs and imaging, images and available reports, and they are significant for: ED Course as of Apr 06 38 Sun Apr 05, 20213 No leukocytosis CBC (with Diff) 4 Lactate 1.46, normal Request for Lactate Whole Blood Draw 4 Patient is afebrile Temp: 37 ??C (98.6 ??F) Mon Apr 06, 2021 0037 BMP unremarkable Basic Metabolic Panel (non-fasting)(!) Procedures Assessment and Plan: 65 y.o. female with c/o RLE wound discharge and pain. Exam most consistent with purulent cellulitis. Vital signs are reassuring, not suspicious for systemic infection. Will check CBC, BMP, lactate. Will treat empirically with Zosyn and Vanc for MRSA coverage in the ED. Toradol given for pain. Given the size of the wound and the patient's significant comorbidities will admit for treatment with IV antibiotics. The visit findings, diagnosis, and care plan were discussed with the patient. Karine Sears MD Resident 04/06/21 0136 Associated attestation - Blanquita Blevins MD - 04/06/2021 5:42 AM EDT ED ATTENDING ATTESTATION The patient was seen in conjunction with Dr. Sears, the resident physician. I have independently performed the hickman portions of the history and physical exam. I have reviewed all diagnostic studies personally including labs, imaging studies and EKGs. I have discussed the details of the case with the resident and agree with the assessment and plan as described in the resident note above unless noted inmy separate note. ED Course as of Apr 0640 Sun Apr 05, 2021 2219 65 yo F w/ hx of CHF, LE edema on oxygen at home baseline with lower extremity wound with increased discharge. + foul smell. LE pain worsening. [facility]NA concerned, so set to ED for evaluation. Worsening SOB on ROS. No tachycardia or fever. MDM: 65-year-old female with multiple comorbidities including congestive heart failure, chronic lower extremity edema, on oxygen at baseline presents emergency department with right lower extremity wound. Purulent drainage as well as foul smell. Patient nontoxic-appearing however concern for cellulitis. Nocrepitus on exam. No involvement of knee or ankle. Significant pitting edema. Exam consistent with cellulitis. I do not suspect necrotizing soft tissue infection or osteomyelitis at this time. No open wound probing to bone. Glucose 98. White count 9.5. Plan for IV antibiotics for MRSA coverage and admission to hospital medicine for continued IV antibiotics. Patient high risk and would not be appropriate for observation under CDU protocol. Admit to . Shiloh Kruger LPN - 04/05/2021 10:[address] to [address] IV, required US IV placement Shiloh Kruger LPN - 04/05/2021 9:34 PM EDT Pt transitioned from motorized WC to stretcher, unable to fully get on stretcher, significantly SOB,4L NC from home, switched to WALL o2. Pt right leg on stretcher, left leg on floor, propped up on left arm. MD at bedside. Pt 99% on 4L. Hypertensive. reports pain 04/24 documented in this encounter Miscellaneous Notes Plan of Care - Patricia Gonzales RN - 04/07/2021 11:26 PM EDT OUTCOME EVALUATION NOTE: OUTCOME SUMMARY: Pt is AOx4, very withdrawn w/ a flat affect. Pt prefers to be left alone and often gets irritated w/staff when computer games are interrupted for meds or patient care. Great you're done, now leave mealone! Meds given per OCT. IV ABX given. Refused bed alarm, see refusal note for details. No acute events. Will continue to monitor. PLAN MOVING FORWARD: IV ABX-transition to PO WC D/c planning INDIVIDUALIZED FALL PREVENTION INTERVENTIONS: Patient-specific fall risk factors per assessment: [current deficits]: Weakness, IV sites Assistance [level of assistance required for transfers and ambulation]: 1a w/ walker Supervision [direct monitoring required during toileting and ADLs]: Hands on Surveillance [continuous indirect monitoring]: Purposeful rounding, call light within reach, room near unit station Patient-specific fall prevention interventions for sensory deficits provided, if applicable: [X] N/A CPG GOAL OUTCOME EVALUATION: Patient Refusal of Care - Patricia Gonzales RN - 04/07/2021 8:01 PM EDT Patient refusing to be bed alarmed. The reason pt gave for this refusal was I can go to the bathroom on my own. Nursing actions taken during this shift to address patient???s refusal included Education about importance of care Plan to address patient???s refusal include Modify plan of care to Round frequently, personal items within reach, non-slip socks provided Plan of Care - Lisa Holley RN - 04/07/2021 5:39 PM EDT OUTCOME EVALUATION NOTE: OUTCOME SUMMARY: VS stable, pt alert and oriented x4, frustrated, complaining of ongoing pain in RLE, tylenol given with some effect. Pt requesting IV toradol towards end of shift. Pt has been sitting EOB or in electric wheelchair for most of day. Dressing to RLE saturated, wound cleansed, new Mepilex Ag applied, pt states she is disappointed to see more yellow slough after wound RN had cleaned most of it off yesterday. PLAN MOVING FORWARD: Monitor hemodynamic status, pain levels, activity tolerance. Administer IV antibiotics. Likely d/c to home tomorrow with PO antibiotics. INDIVIDUALIZED FALL PREVENTION INTERVENTIONS: Patient-specific fall risk factors per assessment: [current deficits]: Weakness, deconditioning, IVs, Assistance [level of assistance required for transfers and ambulation]: 1 assist with walker Supervision [direct monitoring required during toileting and ADLs]: Hands on Surveillance [continuous indirect monitoring]: Purposeful rounding, [place], room near unit station Patient-specific fall prevention interventions for sensory deficits provided, if applicable: N CPG GOAL OUTCOME EVALUATION: Consult Note - mOar No RPH - 04/07/2021 11:25 AM EDT Clinical Pharmacist Note-Vanc Radha Masterson [id number] Radha Masterson is a 65 y.o. female is being monitored due to antibiotic therapy which includes intravenous vancomycin. Regimen: Vancomycin 2000 mg every 12 hours Indication: empiric coverage of cellulitis infection Initiation Date: 04/07 Day of Therapy: 2 Targeted Goal Range: 10 - 15 mcg/mL Pharmacokinetic information: Wt Readings from Last 1 Encounters: 04/07/21 (Abnormal) 203.7 kg (449 lb) Ht Readings from Last 1 Encounters: 04/06/21 160 cm (5' 3) Labs: Vancomycin: Vanc Trough (mg/L) Date Value 01/18/2017 11.1 Creatinine clearance: Creatinine (mg/dL) Date Value 04/07/2021 0.75 Recommendations: ?? The pharmacist-managed vancomycin consult service will sign-off and vancomycin therapy, if it is to be continued, must be ordered by the responsible prescriber. ?? Pharmacists??? therapeutic drug monitoring will continue for patients receiving vancomycin. Should specific assistance be needed regarding re- initation or continuation of vancomycin therapy, please page the care area pharmacist with any questions you may have. Alternately, during off-hours you may call [phone] to contact a pharmacist. OMAR NO RPH Initial Assessments - Alisa Peralta MSW - 04/06/2021 8:46 PM EDT Office of Care Management Initial Assessment ARI Huerta reviewed record and discussed patient with Care Team. Source of Information: Team, bedside nurse, medical record, and Chart Review, Patient Introduced self/reviewed role; patient refused most of interview, became agitated and requested thatwriter leave. Reason for Hospitalization: Pain in my leg per pt Last COVID test: Past medical History: Past Medical History: Diagnosis Date ??? JODY (acute kidney injury) 01/16/2017 ??? Antiplatelet or antithrombotic long-term use ASA 325 bid ??? Asthma ??? Depression ??? Hypertension ??? Mental health problem depression & anxiety - on medication for ??? Multinodular goiter 09/02/2020 ??? DAVID treated with BiPAP ??? Oxygen dependent 2L during the day and 5L @ night ??? PAH (pulmonary artery hypertension) ??? PE (pulmonary thromboembolism) ??? Pulmonary emboli years ago ??? Thyroid nodule ??? Transfusion history not recently-last in 2006 ??? Vertigo left leg gives out-in wheelchair most of the time. Uses walker when walks a very short distance Hospitalizations Within the Past 30 Days: no previous admission in last 30 days Current Decision-Making Capacity: Self Advance Care Planning: Attempt Cardiopulmonary Resuscitation - Inpatient <no information> -Advanced Directive: No, declines If AD's have not been completed adult son would be surrogate decision maker per [place] surrogate decision making law. (Only good for 90 days) Any patient receiving care at [facility] must abide by [place] law. The hierarchy for surrogate decision making is: (a) Patient???s spouse, or civil union partner or common law spouse unless there is a divorce proceeding, separation agreement, or restraining order limiting that person???s relationship with the patient. (b) Any adult son or daughter of the patient. (c) Either parent of the patient. (d) Any adult brother or sister of the patient. (e) Any adult grandchild of the patient. (f) Any grandparent of the patient. (g) Any adult aunt, uncle, niece, or nephew of the patient. (h) A close friend of the patient. (i) The agent with financial power of deputy attorney general or a conservator appointed in accordance with RSA 464-A. (j) The guardian of the patient???s estate. Current Coping/Education/Information Needs: unable to assess Current Functional Ability: unable to assess Functional Status Prior to Admission: unable to assess Home Environment: Others in the home: alone. Current Living Arrangements: home/apartment/condo. Accessibility Concerns: . Current DME: wheelchair - power, walker - rolling Home Address confirmed as: [address] [id number] Social & Family Supports: All names listed below confirmed with patient as current and correct Extended Emergency Contact Information Primary Emergency Contact: Tonie Masterson Address: [address] Mobile Relation: Parent Secondary Emergency Contact: Galo Higgins Address: [address] Relation: Friend Current Care Provided by: sibling(s), child(jose), self Provides Primary Care For: no one, unable/limited ability to care for self Caregiver if needed: sibling(s), homecare agency, child(jose), adult Quality of Family relationships: unable to assess Community Resources being provided currently: homecare agency Behavioral Health History: depression and anxity Substance Use/Abuse listed: Social History Tobacco Use Smoking Status Former Smoker ??? Packs/day: 3.00 ??? Years: 40.00 ??? Pack years: 120.00 ??? Types: Cigarettes ??? Quit date: 10/08/2010 ??? Years since quittin.5 In the past year have you used an illegal drug or used a prescription medication for non-medical reaons?: No 0 No problems reported 1-2 Low level 3-5 Moderate level 6-8 Substantial level 9- 10 Severe level In the past year have you had 4 or more drinks a day containing alcohol?: No 0 to 7 points: Low risk 8 to 15 points: Medium risk 16 to 19 points: High risk 20 to 40 points: Addiction likely Other Pertinent/Service Specific Information: Has wound care services at home. Health/Prescription Coverage: Primary Insurance: [facility] MANAGED MEDICARE Payor: [facility] [employer] MEDICARE / Plan: [facility] MANAGED MEDICARE / Product Type: *No Product type* / Secondary Insurance: MEDICAID [place] Prescription Coverage: YES Preferred Pharmacy: [id number] [place], [place] - [address] [place] [address] [address] [facility] [address] [place] [phone] [place] Status: Patient is a : No Primary Care Provider: Alphonso Cerna MD [phone] Patient/Caregiver Goals of Treatment: I'm going home with [facility] Potential Needs for Transition of Care: home health care, rehabilitation services Agency Referrals: [facility] (current patient) Transportation: unable to assess Transportation Anticipated: unable to assess Concerns to be Addressed: patient refuses services, mental health, adjustment to diagnosis/illness Assessment: Patient is admitted to service for infection and open wound on RLE Plan: Patient very agitated throughout the day and refused to participate in Initial Assessment beyond the most basic questions. A member of the Care Management team will continue to monitor progress, follow for continuity of care and assist with transition of care planning. Consult Note - Yas Bazzi RN - 04/06/2021 12:36 PM EDT Images from the original note were not included. Certified Wound Care Nurse Note Situation: Asked to see Radha Masterson by Elliott Goodson MD for RLE ulcer. Background: eD-H notes reviewed for history, admitting diagnosis and active problem list. Patient [facility] and Mepilex Ag and Dermagrips were being used. Wound Assessment and Care Provided: Patient seen this morning in room 141-A in bed, reason for visitexplained to patient, permission received to assess skin. Patient ambulated into the bathroom (on lasix) and then had visitors. Patient was seen later. Xeroform gauze removed from the leg, there was dark drainage and white drainage and macerated tissue on the leg, see photo below. The leg was very painful for the patient but she did want care to be given despite the pain. Debrisoft sponge used with wound cleanser to remove the devitalized tissue. Mepilex Ag border applied and covered with a Medigripsize G in a double layer. Her right calf measured 63 cm. She previously used the Medigrip in one layer, discussed trying two layers and if not tolerated one layer could be used. The patient is with edema including in her feet. Dr. Hebert arrived during assessment and was able to view the leg wound. Right leg before debridement: Jeffy Score: 18 Last Pressure Ulcer Prevention assessment: Shift Pressure Injury Prevention Thoracic Spine: No Injury Sacral: No Injury Ischial - left: No Injury Ischial - right: No Injury Heel - left: No Injury Heel - right: No Injury Elbow - left: No Injury Elbow - right: No Injury Device Sites: IV sites, BP Cuff, O2 sat monitor Nutritional Status Wt Readings from Last 1 Encounters: 04/06/21 (!) 203 kg (447 lb 8.5 oz) Body mass index is 79.28 kg/m??. Labs Lab Results Component Value Date ALBUMIN 3.5 04/05/2021 ALBUMIN 4.1 09/10/2019 ALBUMIN 2.6 (L) 01/16/2017 HA1C 5.3 04/05/2021 HA1C 5.6 09/10/2019 WBC 9.5 04/05/2021 WBC 6.7 11/06/2020 WBC 13.3 (H) 01/21/2017 HGB 13.6 04/05/2021 HGB 13.8 11/06/2020 HGB 10.1 (L) 01/21/2017 HCT 41.1 04/05/2021 HCT 41.5 11/06/2020 HCT 30.6 (L) 01/21/2017 Nutritional Intake Nutrition Intake (%): 0% Current bed: [facility] Assessment: The patient is with lymphedema and cellulitis in her right leg, being treated with antibiotics. Compression is appropriate to move fluid from superficial venous circulation to deep venous circulation and promote adequate circulation to skin which will help with wound healing. Wound Care Recommendations: JESUS ALBERTO's Mepilex Border Ag dressing to right leg-nursing to change every 3 days and as needed for dressing with 50% or greater strike though drainage. 1. Cleanse wound with dermal wound cleanser and gauze. 2. Apply Mepilex Border dressing 3. Apply Medigrip size G Medigrip to right leg Remove Medigrip to assess legs for pressure related injury daily. 1. Cleanse leg(s) with Dermal Wound Cleanser, pat dry. 2. Place Medigrip by pulling Medigrip onto leg up to popliteal space, like you would place a sock. (Keep in single layer, preventing bunching behind the knee). 3. Double back Medigrip upon itself, creating a two layer sock. Make sure the top of the second layer is 1 inch below the top of the first layer to allow for a graduated compression at the proximal end. Wound Care Team will plan to follow: weekly. After discharge, [facility]. Discussed plan with: /ANDRAE/PA: Dr. Hebert RN: Bandar Please contact YAS BAZZI RN on pager [phone] or the wound care team at [phone] or pager [phone] skin and wound care concerns or questions. Consult Note - Gill Ocampo RD - 04/06/2021 7:42 AM EDT Nutrition Consult Note Patient admitted with right leg cellulitis, relevant medical history includes HTN, heart failure, hxvitamin d def Radha Masterson is a 65 y.o. female Reason for intervention: obesity Nutrition Recommendations: Regular diet - honor food preferences as able Ensure Enlive for trial as this may be easier to consume Double portions protein foods Would check vitamin D levels, at risk of deficiency Measure bi-weekly weights to trend Active Orders Diet Regular diet Frequency: Effective Now Number of Occurrences: Until Specified Lab Results Component Value Date NA 142 04/05/2021 K 4.0 04/05/2021 CL 107 04/05/2021 CO2 26 04/05/2021 BUN 13 04/05/2021 CREATININE 0.62 (L) 04/05/2021 ESTGFR 95 04/05/2021 CALCIUM 8.2 (L) 04/05/2021 AST 21 04/05/2021 ALT 19 04/05/2021 ALKPHOS 75 04/05/2021 BILITOT 0.7 04/05/2021 BILIDIR 0.1 04/05/2021 CRP 5.8 (H) 04/05/2021 HA1C 5.3 04/05/2021 No results found for: POCGLU Skin Status: Shift Pressure Injury Prevention Thoracic Spine: No Injury Sacral: No Injury Ischial - left: No Injury Ischial - right: No Injury Heel - left: No Injury Heel - right: No Injury Elbow - left: No Injury Elbow - right: No Injury Device Sites: IV sites, BP Cuff, O2 sat monitor, Bi pap/C pap mask Relevant medications: calcitriol, lasix, spirolactone, vancomycin Admit Weight: 204.12 kg Estimated body mass index is 79.28 kg/m?? as calculated from the following: Height as of this encounter: 160 cm (5' 3). Weight as of this encounter: 203 kg (447 lb 8.5 oz). Barnes Body Weight: 115# // 52kg Usual Body Weight: seems 420# Wt Readings from Last 10 Encounters: 04/06/21 (!) 203 kg (447 lb 8.5 oz) 03/03/21 (!) 204.9 kg (451 lb 11.2 oz) 01/20/21 (!) 190.5 kg (420 lb) 01/01/21 (!) 190.5 kg (420 lb) 12/17/20 (!) 190.5 kg (420 lb) 11/06/20 (!) 190.5 kg (420 lb) 08/29/20 (!) 190.5 kg (420 lb) 08/29/20 (!) 186 kg (410 lb) 08/12/20 (!) 186 kg (410 lb) 06/24/20 (!) 176.9 kg (390 lb) Assessment: Estimated needs: Calories: 2244kcal (11 kcal/kg) actual weight Protein: 104 grams (2g/kg) ideal weight Nutrition Focused Physical Exam (NFPE): Not performed Nutrition intake and intake history/Interview: unable to intereview with Radha today as on visits to bedside x3 today, she is sleeping with her bipap on. As per OZ Portillo, patient with poor appetite today- he has been working with her to order foods she likes to entice to eat. If patient is interested in weight management - would consult to outpatient nutrition. Addressing her poor oral intakes as her acute nutrition issues during this admission Protein-calorie Malnutrition: Not identified (Juice, JPEN J Parenteral Enteral Nutr. 2011;36(3): 273-83) Nutrition to continue to follow up while inpatient THANKS Gill Ocampo RD Pager #:[phone] Plan of Care - Sukhwinder Eckert RN - 04/06/2021 6:51 AM EDT OUTCOME EVALUATION NOTE: OUTCOME SUMMARY: 65 year old woman with hx of pulmonary HTN, HFpEF, ADVID, bilateral LE edema, prosthetic right knee, and obesity (BMI 80) who presents to [facility] 04/05 with RLE ulcer pain and discharge. She states that for the past 3-4 days her RLE ulcer has been becoming more painful. The discharge used to be clear, but now is yellow with a foul odor. She has daily [facility] wound care and they were also concerned about theappearance of her wound. She denies fever, chills, nausea/vomiting, and chest pain. She has chronic SOB on 3L of O2, but thinks it might be a bit worse today. Her LE edema is chronic and she thinks it has been about the same for months. She has difficulty ambulating at baseline and uses a mobility scooter. In ER: T 37.0, HR 86, BP 169/84, R 20, O2 95% room air WBC 9.5 Received Zosyn 4.5g, vancomycin IV 2g, ketorolac IV 30mg Review of Systems: Review of Systems Constitutional: Negative for fever. HENT: Negative for congestion and sore throat. Eyes: Negative for visual disturbance. Respiratory: Positive for shortness of breath. Cardiovascular: Positive for leg swelling. Negative for chest pain. Gastrointestinal: Negative for abdominal pain, nausea and vomiting. Genitourinary: Negative for dysuria. Musculoskeletal: Negative for back pain. Skin: Positive for wound. Neurological: Negative for headaches. Hematological: Does not bruise/bleed easily. Psychiatric/Behavioral: Irritable PLAN MOVING FORWARD: Vancomycin 2g/ cellulitis Pain management Wound care Mobility CPAP INDIVIDUALIZED FALL PREVENTION INTERVENTIONS: Patient-specific fall risk factors per assessment: [current deficits]: deconditioning Assistance [level of assistance required for transfers and ambulation]: 2 persons/ PT/OT to evaluatestatus Supervision [direct monitoring required during toileting and ADLs]: hands on Surveillance [continuous indirect monitoring]: [place], call light within reach Patient-specific fall prevention interventions for sensory deficits provided, if applicable: [X] N/A CPG GOAL OUTCOME EVALUATION: ED Triage - Rajat Johnson RN - 04/05/2021 8:38 PM EDT HPI (Adult) Stated Reason for Visit: I have an ulcer on my right leg. This visiting nurse told me she thinks it's infected because the discharge is yellow. Pt presents with right leg wrapped in bandage. Bandage not taken down for triage. History Obtained From: patient Duration (Days): 2 Pt noticed change in color of discharge two days ago. [facility] today said she thinks it might be infected. Pain 9/10, described as feeling like she's being stabbed with a red-hot knife. A/o x 4. Arrived in motorized wheelchair, but SOB in triage. Pt states SOB is due to mask and pain. documented in this encounter Plan of Treatment [...] google or use a book such as [employer]rdPlace (available on [employer]) OR [employer] (if you're using a package, it will have calorie and protein info on the back) - The other thing to write down would be grams of protein - 1500 is a good starting point for a ca jeffrey goal documented as of this encounter Procedures Procedure Name Priority Date/Time Associated Comments Diagnosis HEMOGRAM Routine 04/08/2021 1:38 AM Results f or this EDT procedure are i n the results section. DIFFERENTIAL, Routine 04/08/2021 1:38 AM Results for this AUTOMATED EDT procedure are i n the results section. HC CBC,PLT & AUTO DIFF Routine 04/08/2021 1:38 AM EDT BASIC METABOLIC PANEL Routine 04/08/2021 1:38 AM Results for this (NON-FASTING) EDT procedure are in the results section. HEMOGRAM Routine 04/07/2021 3:23 AM Results f or this EDT procedure are i n the results section. DIFFERENTIAL, Routine 04/07/2021 3:23 AM Results for this AUTOMATED EDT procedure are i n the results section. HC VENIPUNCTURE Routine 04/07/2021 3:23 AM EDT BASIC METABOLIC PANEL Routine 04/07/2021 3:23 AM Results for this (NON-FASTING) EDT procedure are in the results section. HC VENIPUNCTURE Routine 04/06/2021 3:19 PM Result s for this EDT procedure are i n the results section. HC MRSA DETECTION BY Routine 04/06/2021 11:31 Res ults for this PCR AM EDT procedure are i n the results section. CRP, ACUTE STAT 04/05/2021 11:20 Results for this INFLAMMATION PM EDT procedure are i n the results section. HEMOGRAM STAT 04/05/2021 11:20 Results for this PM EDT procedure are i n the results section. DIFFERENTIAL, STAT 04/05/2021 11:20 Results fo r this AUTOMATED PM EDT procedure are i n the results section. GOLD TUBE HOLD STAT 04/05/2021 11:20 Results f or this PM EDT procedure are i n the results section. SEDIMENTATION RATE STAT 04/05/2021 11:20 Resul ts for this PM EDT procedure are i n the results section. HC CBC,PLT & AUTO DIFF STAT 04/05/2021 11:20 PM EDT HEMOGLOBIN A1C STAT 04/05/2021 11:20 Results f or this PM EDT procedure are i n the results section. HEPATIC FUNCTION PANEL STAT 04/05/2021 11:20 R esults for this PM EDT procedure are i n the results section. BASIC METABOLIC PANEL STAT 04/05/2021 11:20 Re sults for this (NON-FASTING) PM EDT procedure are in the results section. L-LACTATE2 WHOLE BLOOD Routine 04/05/2021 11:19 R esults for this PM EDT procedure are i n the results section. documented in this encounter Results Differential, Automated (04/08/2021 1:38 AM EDT) athologist Signature Neutrophils % 61.7 % [facility] Neutr Abs (ANC) 5.46 1.70 - [facility] 6.10 [facility] x10(3)/[facility] Lymphocytes % 24.9 % [facility] Lymphocytes Abs 2.2 0.9 - 3.2 [facility] x10(3)/[facility] Monocytes % 8.3 % [facility] Monocyte Abs 0.7 0.3 - 0.9 [facility] x10(3)/[facility] Eosinophils % 4.4 % [facility] Eosinophils Abs 0.4 0.0 - 0.4 [facility] x10(3)/[facility] Basophils % 0.5 % [facility] Basophils Abs 0.0 0.0 - 0.1 [facility] x10(3)/[facility] Immature Gran % 0.20 % [facility] Comment: Immature granulocytes(IG's)percentage an d absolute count will include metamyelocytes, myelocytes, and promyelo cytes. Blood smears from CBCs yielding IG's will be scanned manually for concor dance. If this scan disagrees with the automated IG or if promyelocytes are not ed, a manual differential will be performed. Surekha Gran Abs 0.02 0.00 - 0.04 x10(3)/[facility] Specimen Anatomical Collection Method Collection Time Receive d Time (Source) Location / / Volume Laterality Blood 04/08/2021 1:38 AM 1:56 EDT AM EDT Resulting Agency Comment Spec In Lab Elliott Goodson MD HEMATOLOGY ORDERABLES Performing Organization Address City/State/[place] [address] Hemogram (04/08/2021 1:38 AM EDT) P athologist Signature WBC 8.8 4.0 - 9.5 [facility] x10(3)/[facility] LAB[facility]AT[facility] RBC 4.44 4.00 - [facility] x10(6)/[facility] Hemoglobin 12.7 11.7 - [facility] 15.5 gm/dL [facility] Hematocrit 39.2 35.7 - [facility] 45.[facility] % [facility] MCV 88.3 82.6 - [facility] 94.4 [facility] MCH 28.6 27.1 - [facility] 32.0 pg [facility] MCHC 32.4 31.7 - [facility] 35.0 gm/dL [facility] Platelets 259 145 - 357 [facility] x10(3)/[facility] LABORATORY RDWSD 45.6 37.0 - [facility] 46.0 [facility] RDWCV 14.1 11.5 - [facility] 14.1 % [facility] MPV 11.2 7.6 - 12.9 [facility] LABORATORY nRBC % Auto 0.0 % [facility] nRBC Abs Auto 0.000 0.000 - [facility] 0.000 [facility] x10(3)/[facility] Specimen Anatomical Collection Method Collection Time Receive d Time (Source) Location / / Volume Laterality Blood 04/08/2021 1:38 AM 1:56 EDT AM EDT Resulting Agency Comment Spec In Lab Elliott Goodson MD HEMATOLOGY ORDERABLES Performing Organization Address City/State/[place] [address] (ABNORMAL) Basic Metabolic Panel (non-fasting) (04/08/2021 1:38 AM EDT) P athologist Signature Glucose Lvl 113 65 - 199 [facility] mg/dL [facility] Comment: Diabetes: >=200 mg/dL plus symp toms BUN 16 8 - 18 mg/dL [facility] Creatinine 0.80 0.70 - 1.20 mg/dL [facility] Sodium 138 135 - 145 mmol/L [facility] Potassium 3.8 3.5 - 5.0 mmol/L [facility] Comment: Please note: ??Patients with WBC >100,00 0 may have falsely elevated Potassium levels. ??For accurate Potassium quantif ication in these patients send serum separator tube (gold top) for subsequent determinations. ??Contact the Clinical Chemistry Laboratory if there are any qu estions. Chloride 103 98 - 107 mmol/L [facility] CO2 26 22 - 31 mmol/L [facility] Anion Gap 9 5 - 15 mmol/L [facility] Calcium 7.9 (L) 8.5 - 10.5 mg/dL [facility] Estimated GFR 78 >=60 mL/min/1.73 m?? [facility] Comment: This patient? s estimated glomerular filtration rate (eGFR) is between 78 mL/min/1.73 m2 (patients with less muscl e mass) and 90 mL/min/1.73 m2 (patients with more muscle mass) as determined by the CKD-EPI equation. Assessment of eGFR is not appropriate when creatinine concentrations are rapidly changing. For clinical decisions where creatinine clearance will affect therapy, a 24-hour urine creatinine clearance may b e advised. Assignment of CKD stage 1 - 5 for patien ts with an eGFR near the transition point between stages may be based on cli nical assessment of muscle mass and symptoms in addition to eGFR. Specimen Anatomical Collection Method Collection Time Receive d Time (Source) Location / / Volume Laterality Blood 04/08/2021 1:38 AM 1:56 EDT AM EDT Resulting Agency Comment Spec In Lab Elliott Goodson MD CHEMISTRY ORDERABLES Performing Organization Address City/State/[place] [address] Differential, Automated (04/07/2021 3:23 AM EDT) athologist Signature Neutrophils % 63.2 % [facility] Neutr Abs (ANC) 5.18 1.70 - [facility] 6.10 [facility] x10(3)/[facility] LAB[facility]ATORY Lymphocytes % 22.7 % [facility] Lymphocytes Abs 1.9 0.9 - 3.2 [facility] x10(3)/[facility] LABORATORY Monocytes % 9.1 % [facility] Monocyte Abs 0.8 0.3 - 0.9 [facility] x10(3)/[facility] LABORATORY Eosinophils % 4.4 % [facility] Eosinophils Abs 0.4 0.0 - 0.4 [facility] x10(3)/[facility] LABORATORY Basophils % 0.4 % [facility] Basophils Abs 0.0 0.0 - 0.1 [facility] x10(3)/[facility] LABORATORY Immature Gran % 0.20 % [facility] Comment: Immature granulocytes(IG's)percentage an d absolute count will include metamyelocytes, myelocytes, and promyelo cytes. Blood smears from CBCs yielding IG's will be scanned manually for concor dance. If this scan disagrees with the automated IG or if promyelocytes are not ed, a manual differential will be performed. Surekha Gran Abs 0.02 0.00 - 0.04 x10(3)/[facility] Specimen Anatomical Collection Method Collection Time Receive d Time (Source) Location / / Volume Laterality Blood 04/07/2021 3:23 AM 1 3:36 EDT AM EDT Resulting Agency Comment Spec In Lab Elliott Goodson MD HEMATOLOGY ORDERABLES Performing Organization Address City/State/[place] [address] Hemogram (04/07/2021 3:23 AM EDT) P athologist Signature WBC 8.2 4.0 - 9.5 [facility] x10(3)/[facility] LABORATORY RBC 4.27 4.00 - [facility] 5.21 [facility] x10(6)/[facility] Hemoglobin 12.3 11.7 - [facility] 15.5 gm/dL [facility] Hematocrit 37.6 35.7 - [facility] 45.8 % [facility] MCV 88.1 82.6 - [facility] 94.4 [facility] LABORATORY MCH 28.8 27.1 - [facility] 32.0 pg [facility] MCHC 32.7 31.7 - [facility] 35.0 gm/dL [facility] Platelets 228 145 - 357 [facility] RDWSD 45.3 37.0 - [facility] 46.0 [facility] LABORATORY RDWCV 14.1 11.5 - [facility] 14.1 % [facility] MPV 10.6 7.6 - 12.9 [facility] LABORATORY nRBC % Auto 0.0 % [facility] nRBC Abs Auto 0.000 0.000 - [facility] 0.000 [facility] x10(3)/[facility] Specimen Anatomical Collection Method Collection Time Receive d Time (Source) Location / / Volume Laterality Blood 04/07/2021 3:23 AM 1 3:36 EDT AM EDT Resulting Agency Comment Spec In Lab Elliott Goodson MD HEMATOLOGY ORDERABLES Performing Organization Address City/State/[place] [address] (ABNORMAL) Basic Metabolic Panel (non-fasting) (04/07/2021 3:23 AM EDT) P athologist Signature Glucose Lvl 97 65 - 199 [facility] mg/dL [facility] Comment: Diabetes: >=200 mg/dL plus symp toms BUN 16 8 - 18 mg/dL [facility] Creatinine 0.75 0.70 - 1.20 mg/dL [facility] Sodium 140 135 - 145 mmol/L [facility] Potassium 3.9 3.5 - 5.0 mmol/L [facility] Comment: Please note: ??Patients with WBC >100,00 0 may have falsely elevated Potassium levels. ??For accurate Potassium quantif ication in these patients send serum separator tube (gold top) for subsequent determinations. ??Contact the Clinical Chemistry Laboratory if there are any qu estions. Chloride 105 98 - 107 mmol/L [facility] CO2 28 22 - 31 mmol/L [facility] Anion Gap 7 5 - 15 mmol/L [facility] Calcium 8.2 (L) 8.5 - 10.5 mg/dL [facility] Estimated GFR 84 >=60 mL/min/1.73 m?? [facility] Comment: This patient? s estimated glomerular filtration rate (eGFR) is between 84 mL/min/1.73 m2 (patients with less muscl e mass) and 98 mL/min/1.73 m2 (patients with more muscle mass) as determined by the CKD-EPI equation. Assessment of eGFR is not appropriate when creatinine concentrations are rapidly changing. For clinical decisions where creatinine clearance will affect therapy, a 24-hour urine creatinine clearance may b e advised. Assignment of CKD stage 1 - 5 for patien ts with an eGFR near the transition point between stages may be based on cli nical assessment of muscle mass and symptoms in addition to eGFR. Specimen Anatomical Collection Method Collection Time Receive d Time (Source) Location / / Volume Laterality Blood 04/07/2021 3:23 AM 3:36 EDT AM EDT Resulting Agency Comment Spec In Lab Elliott Goodson MD CHEMISTRY ORDERABLES Performing Organization Address City/State/[place] [address] (ABNORMAL) Vitamin D, 25-Hydroxy (04/06/2021 3:19 PM EDT) [facility] Method Time Signature 25-OH Vit D 13 (L) 21 - 100 [facility] Total ng/mL [facility] 25-OH Vit D Deficient [facility] Specimen Anatomical Collection Method Collection Time Receive d Time (Source) Location / / Volume Laterality Blood 04/06/2021 3:19 PM 3:25 EDT PM EDT Resulting Agency Comment Spec In Lab Hina Conley APRN CHEMISTRY ORDERABLES Performing Organization Address City/[facility]/[place] [address] MRSA PCR (04/06/2021 11:31 AM EDT) [facility] Method Time Signature MRSA Result Negative Negative [facility] MRSA Interp Negative for methicillin-resistant Staphylococcus aureus (MRSA) [facility] This test was performed using the Genespigit?? Dx System an d the Xpert MRSA MEMORIAL Assay. The MRSA target DNA was not detec claudia. The sample processing control and HOSPITAL probe check were valid. The performance of this test was determined by the [facility] Molecular Pathology Laboratory. It has been grey red by the U.S. Food and Drug Administration for clinical use. Comment: [VERIFIED DATE]04.06.21 Verified By:Morales Taylor (Electronic Signature) Specimen (Source) Anatomical Collection Method Collection Time Re ceived Time Location / / Volume Laterality Nasopharyngeal Swab 04/06/2021 11:31 08/2 10/2020 AM EDT 1:08 PM EDT Resulting Agency Comment Spec In Lab Sunny Hebert MD MICROBIOLOGY - GENERAL ORDER MARY Performing Organization Address City/[facility]/[place] [address] Hemoglobin A1c (04/05/2021 11:20 PM EDT) athologist Signature Hemoglobin A1C 5.3 4.3 - 5.6 [facility] Comment: Reference Range: 4.3 - 5.6% 5.7 - 6.4% - Increased Risk of Developin g Diabetes Mellitus >= 6.5% - Consistent with diagnosis of D iabetes Mellitus In the absence of hyperglycemia (i.e. pl asma glucose > 200 mg/dL) or classic symptoms of hyperglycemia a repeat measu rement of HbA1c should be performed on a separate sample to confirm the diagnos is. Diagnosis and Classification of Diabetes Mellitus, Diabetes Care 2013; 36: Suppl. 1, S67-74 Est Avg Gluc 106 mg/dL [facility] Comment: eAG equivalents for HbA1c percentages: HbA1c(%) ?eAG(mg/dL) 6.0 ?126 6.5 ?140 7.0 ?154 7.5 ?169 8.0 ?183 8.5 ?197 9.0 ?212 9.5 ?226 10.0 ? 240 Limitations: The eAG calculation has not been validated on women, individuals below 18 years old and above 70 years old, and individuals with hemoglobinopathies. Additional resources are available on [facility] ADA website. Morales BERNSTEIN, Rey J, Jose L R, et al. ??Tr anslating the A1C assay into estimated average glucose values. ??Diabetes Care 2008:31(8):3442-1959. Specimen Anatomical Collection Method Collection Time Receive d Time (Source) Location / / Volume Laterality Blood Venous Draw / 04/05/2021 11:20 04/06/2021 4:59 Unknown PM EDT AM EDT Resulting Agency Comment Spec In Lab Elliott Goodson MD CHEMISTRY ORDERABLES Performing Organization Address City/State/[place] [address] Hepatic Function Panel (04/05/2021 11:20 PM EDT) athologist [facility] Total Protein 6.5 6.1 - 8.0 [facility] gm/dL [facility] Albumin 3.5 3.2 - 5.2 [facility] gm/dL [facility] AST 21 0 - 30 [facility] unit/L [facility] ALT 19 0 - 30 [facility] unit/L [facility] Alk Phos 75 35 - 105 [facility] unit/L [facility] Total 0.7 0.2 - 1.3 [facility] Bilirubin mg/dL [facility] Bili, Direct 0.1 0.0 - 0.3 [facility] mg/dL [facility] Specimen Anatomical Collection Method Collection Time Receive d Time (Source) Location / / Volume Laterality Blood Venous Draw / 04/05/2021 11:20 04/05/2021 Unknown PM EDT 11:27 PM EDT Resulting Agency Comment Spec In Lab Elliott Goodson MD CHEMISTRY ORDERABLES Performing Organization Address City/[facility]/[place] [address] (ABNORMAL) CRP, acute inflammation (04/05/2021 11:20 PM EDT) athologist [facility] CRP 5.8 (H) <=4.9 mg/L [facility] Specimen Anatomical Collection Method Collection Time Receive d Time (Source) Location / / Volume Laterality Blood Venous Draw / 04/05/2021 11:20 04/05/2021 Unknown PM EDT 11:27 PM EDT Resulting Agency Comment Spec In Lab Elliott Goodson MD CHEMISTRY ORDERABLES Performing Organization Address City/[facility]/[place] [address] (ABNORMAL) Sedimentation rate (04/05/2021 11:20 PM EDT) athologist [facility] Sed Rate 58 (H) 2 - 39 [facility] mm/hr [facility] Comment: Effective July 25, 2019 new capillar y photometric technology has resulted in a change in reference ranges. It is r ecommended that each ESR result be reviewed with its own age appropriate re ference range. Specimen Anatomical Collection Method Collection Time Receive d Time (Source) Location / / Volume Laterality Blood Venous Draw / 04/05/2021 11:20 04/05/2021 Unknown PM EDT 11:24 PM EDT Resulting Agency Comment Spec In Lab Elliott Goodson MD HEMATOLOGY ORDERABLES Performing Organization Address City/[facility]/ZIP Code Phon e Number [address] Gold Tube HOLD (04/05/2021 11:20 PM EDT) athologist Signature Gold Hold Sample in [facility]. [facility] Specimen Anatomical Collection Method Collection Time Receive d Time (Source) Location / / Volume Laterality Blood Venous Draw / 04/05/2021 11:20 04/05/2021 Unknown PM EDT 11:24 PM EDT Karine Sears MD CHEMISTRY ORDERABLES Performing Organization Address City/[facility]/ZIP Code Phon e Number [address] Differential, Automated (04/05/2021 11:20 PM EDT) athologist Signature Neutrophils % 58.6 % [facility] Neutr Abs (ANC) 5.56 1.70 - [facility] 6.10 [facility] x10(3)/[facility] LABORATORY Lymphocytes % 26.6 % [facility] Lymphocytes Abs 2.5 0.9 - 3.2 [facility] x10(3)/[facility] LABORATORY Monocytes % 9.3 % [facility] Monocyte Abs 0.9 0.3 - 0.9 [facility] x10(3)/[facility] LABORATORY Eosinophils % 4.6 % [facility] Eosinophils Abs 0.4 0.0 - 0.4 [facility] x10(3)/[facility]ATORY Basophils % 0.5 % [facility] Basophils Abs 0.0 0.0 - 0.1 [facility] x10(3)/[facility]ATORY Immature Gran % 0.40 % [facility] Comment: Immature granulocytes(IG's)percentage an d absolute count will include metamyelocytes, myelocytes, and promyelo cytes. Blood smears from CBCs yielding IG's will be scanned manually for concor dance. If this scan disagrees with the automated IG or if promyelocytes are not ed, a manual differential will be performed. Surekha Gran Abs 0.04 0.00 - 0.04 x10(3)/[facility] Specimen Anatomical Collection Method Collection Time Receive d Time (Source) Location / / Volume Laterality Blood 04/05/2021 11:20 04/05/2021 PM EDT 11:24 PM EDT Resulting Agency Comment Spec In Lab Karine Sears MD HEMATOLOGY ORDERABLES Performing Organization Address City/State/[place] [address] Hemogram (04/05/2021 11:20 PM EDT) P athologist Signature WBC 9.5 4.0 - 9.5 [facility] x10(3)/[facility] LABORATORY RBC 4.79 4.00 [facility] x10(6)/[facility]ATORY Hemoglobin 13.6 11.7 - [facility] 15.5 gm/dL [facility] Hematocrit 41.1 35.7 - [facility] 45.8 % [facility] MCV 85.8 82.6 - [facility] 94.4 [facility] LABORATORY MCH 28.4 27.1 - [facility] 32.0 pg [facility] MCHC 33.1 31.7 - [facility] 35.0 gm/dL [facility] Platelets 263 145 - 357 [facility] x10(3)/[facility]ATORY RDWSD 43.5 37.0 - [facility] 46.0 [facility]ORY RDWCV 13.9 11.5 - [facility] 14.1 % [facility] MPV 10.5 7.6 - 12.9 [facility] LABORATORY nRBC % Auto 0.0 % [facility] nRBC Abs Auto 0.000 0.000 - [facility] 0.000 [facility] x10(3)/[facility] LABORATORY Specimen Anatomical Collection Method Collection Time Receive d Time (Source) Location / / Volume Laterality Blood 04/05/2021 11:20 04/05/2021 PM EDT 11:24 PM EDT Resulting Agency Comment Spec In Lab Karine Sears MD HEMATOLOGY ORDERABLES Performing Organization Address City/State/[place] [address] (ABNORMAL) Basic Metabolic Panel (non-fasting) (04/05/2021 11:20 PM EDT) P athologist Signature Glucose Lvl 98 65 - 199 [facility] mg/dL [facility] Comment: Diabetes: >=200 mg/dL plus symp toms BUN 13 8 - 18 mg/dL [facility] Creatinine 0.62 (L) 0.70 - 1.20 mg/dL [facility] Sodium 142 135 - 145 mmol/L [facility] Potassium 4.0 3.5 - 5.0 mmol/L [facility] Comment: Please note: ??Patients with WBC >100,00 0 may have falsely elevated Potassium levels. ??For accurate Potassium quantif ication in these patients send serum separator tube (gold top) for subsequent determinations. ??Contact the Clinical Chemistry Laboratory if there are any qu estions. Chloride 107 98 - 107 mmol/L [facility] CO2 26 22 - 31 mmol/L [facility] Anion Gap 9 5 - 15 mmol/L [facility] Calcium 8.2 (L) 8.5 - 10.5 mg/dL [facility] Estimated GFR 95 >=60 mL/min/1.73 m?? [facility] Comment: This patient? s estimated glomerular filtration rate (eGFR) is between 95 mL/min/1.73 m2 (patients with less muscl e mass) and 110 mL/min/1.73 m2 (patients with more muscle mass) as dete rmined by the CKD-EPI equation. Assessment of eGFR is not appropriate wh en creatinine concentrations are rapidly changing. For clinical decisions where creatinine clearance will affect therapy, a 24-hour urine creatinine grey shanthi may be advised. Assignment of CKD stage 1 - 5 for patien ts with an eGFR near the transition point between stages may be based on cli nical assessment of muscle mass and symptoms in addition to eGFR. Specimen Anatomical Collection Method Collection Time Receive d Time (Source) Location / / Volume Laterality Blood 04/05/2021 11:20 04/05/2021 PM EDT 11:24 PM EDT Resulting Agency Comment Spec In Lab Blanquita Blevins MD CHEMISTRY ORDERABLES Performing Organization Address City/State/[place] [address] L-Lactate2 Whole Blood (04/05/2021 11:19 PM EDT) P athologist Signature Lactate WB 1.5 0.5 - 2.2 [facility] mmol/L [facility] Specimen Anatomical Collection Method Collection Time Receive d Time (Source) Location / / Volume Laterality Blood 04/05/2021 11:19 04/05/2021 PM EDT 11:19 PM EDT Blanquita Blevins MD CHEMISTRY ORDERABLES Performing Organization Address City/State/ZIP [facility] [address] documented in this encounter Visit Diagnoses Diagnosis Cellulitis of right leg - Primary Cellulitis and abscess of leg, except fo ot Cellulitis of leg, right Cellulitis and abscess of leg, except fo ot Venous stasis ulcer of right calf limite d to breakdown of skin, unspecified whether varicose veins present Venous insufficiency of both lower extre mities documented in this encounter Admitting Diagnoses Diagnosis Cellulitis of right leg Cellulitis and abscess of leg, except fo ot documented in this encounter Administered Medications Inactive Administered Medications - up to 3 most recent administrations Medication Order MAR Action Action Date Dose Rate Site acetaminophen (Tylenol) tablet 650 Given 04/08/2021 8:35 AM EDT 650 mg mg 650 mg, Oral, EVERY 6 HOURS PRN, Starting on 04/06/21 at 0444, Until Tue04/08/21 at 1627, Pain, Fever, Administer for temperature greater than or equal to 38.2 degrees celsius. Maximum daily dose of acetaminophen from all sources not to exceed 4,000 mg. When ordered for pain, acetaminophen should be given even when other ordered pain medications are indicated., Routine Given 04/07/2021 1:48 PM EDT 650 mg Given 04/07/2021 5:33 AM EDT 650 mg aspirin tablet 325 mg Given 04/08/2021 8:34 AM EDT 325 mg 325 mg, Oral, DAILY, First dose on Tue04/06/21 at 0900, Until Discontinued, Routine Given 04/07/2021 10:00 AM EDT 325 mg Given 04/06/2021 9:33 AM EDT 325 mg buPROPion (Wellbutrin) tablet 100 mg Given 04/08/2021 8:34 AM EDT 100 mg 100 mg, Oral, 2 TIMES DAILY, First dose on Tue04/06/21 at 0900, Until Discontinued, Routine Given 04/07/2021 9:15 PM EDT 100 mg Given 04/07/2021 10:00 AM EDT 100 mg busPIRone (Buspar) tablet 10 mg Given 04/08/2021 2:18 PM EDT 10 mg 10 mg, Oral, 3 TIMES DAILY, First dose on Tue04/06/21 at 0900, Until Discontinued, Routine Given 04/08/2021 8:35 AM EDT 10 mg Given 04/07/2021 9:15 PM EDT 10 mg calciTRIoL (Rocaltrol) capsule 0.25 mcg Given 04/08/2021 8:34 AM EDT 0.25 mcg 0.25 mcg, Oral, 2 TIMES DAILY, First dose on Tue04/06/21 at 0900, Until Discontinued, Routine Given 04/07/2021 9:16 PM EDT 0.25 mcg Given 04/07/2021 10:00 AM EDT 0.25 mcg calcium carbonate (Tums) chewable tablet Given 04/06/2021 5:09 P M EDT 1,000 mg 500-1,000 mg 500-1,000 mg, Oral, EVERY 4 HOURS PRN, Starting on Tue04/06/21 at 0444, Until Tue04/08/21 at 1627, Heartburn, Give 500 mg (1 tablet) for mild to moderate heartburn. Give 1,000 mg (2 tablets) for severe heartburn., Routine ceFAZolin (Ancef) 2 g in dextrose 5% New Bag 04/08/2021 8:37 A M EDT 2 g 200 mL/hr 100 mL infusion 2 g, Intravenous, EVERY 8 HOURS, First dose on Tue04/07/21 at 1200, Until Discontinued, Administer over 30 Minutes, Indication for (Active or Suspected): Skin/Skin Structure New Bag 04/07/2021 11:16 PM EDT 2 g 200 mL/hr New Bag 04/07/2021 4:30 PM EDT 2 g 200 mL/hr citalopram (CeleXA) tablet 20 mg Given 04/08/2021 8:35 AM EDT 20 mg 20 mg, Oral, DAILY, First dose on Tue04/06/21 at 0900, Until Discontinued, Routine Given 04/07/2021 10:00 AM EDT 20 mg Given 04/06/2021 9:30 AM EDT 20 mg furosemide (Lasix) tablet 80 mg Given 04/08/2021 8:34 AM EDT 80 mg 80 mg, Oral, DAILY, First dose on Tue04/06/21 at 0900, Until Discontinued, Routine Given 04/07/2021 10:00 AM EDT 80 mg Given 04/06/2021 9:33 AM EDT 80 mg HYDROmorphone (Dilaudid) (0.5 mg/0.5 mL) injection syringe 0.4 mg 0.4 mg, Intravenous, EVERY 4 HOURS PRN, Starting on Tue04/06/21 at 1253, Until Tue04/08/21 at 1627, Pain, Prior to dressing changes for p ain, Routine ketorolac (Toradol) (30 mg/mL) injection 30 Given 04/06/2021 12:39 AM EDT 30 mg mg 30 mg, Intravenous, ONCE, 1 dose, On Tue04/06/21 at 0038, STAT ketorolac (Toradol) (30 mg/mL) injection 30 mg Given 04/07/2021 5:36 PM EDT 30 mg 30 mg, Intravenous, EVERY 6 HOURS PRN, Starting on Tue04/06/21 at 0445, Until Tue04/08/21 at 1627, Pain, STAT Given 04/06/2021 6:31 PM EDT 30 mg Given 04/06/2021 5:16 AM EDT 30 mg levothyroxine (Synthroid) tablet 250 mcg Given 04/08/2021 5:43 AM EDT 250 mcg 250 mcg, Oral, EVERY MORNING, First dose on Tue04/06/21 at 0600, Until Discontinued, Routine Given 04/07/2021 5:24 AM EDT 250 mcg Given 04/06/2021 5:53 AM EDT 250 mcg lidocaine (Lidoderm) 5% Patch Applied 04/08/2021 12:27 PM 3 patches 13- Abdomen patch 3 patch EDT (Left) 3 patch, Transdermal, EVERY 24 HOURS, First dose on Tue04/06/21 at 1030, Until Discontinued, Apply patch(es) for 12 hours, and then remove for 12 hours., Routine Patch Applied 04/07/2021 10:11 AM EDT 3 patches 14- Abdomen (Right) Patch Applied 04/06/2021 11:55 AM EDT 3 patches 14- Abdomen (Right) lidocaine (Lidoderm) topical patch REMOV AL Transdermal, EVERY 24 HOURS, First dose on Tue04/06/21 at 2145, Until Discontinued, Remove lidocaine 5% patch montelukast (Singulair) tablet 10 mg Given 04/07/2021 9:15 PM EDT 10 mg 10 mg, Oral, NIGHTLY, First dose on Tue04/06/21 at 2100, Until Discontinued, Routine Given 04/06/2021 10:45 PM EDT 10 mg ondansetron (pf) (Zofran) (2 mg/mL) injection 4 Given 04/06/2021 5:15 PM EDT 4 mg mg 4 mg, Intravenous, EVERY 8 HOURS PRN, Starting on Tue04/06/21 at 1655, Until Tue04/08/21 at 1627, Nausea piperacillin-tazobactam (Zosyn) 4.5 New Bag 04/05/2021 11:50 P M EDT 4.5 g 200 mL/hr g vial attach to sodium chloride 0.9% 100 mL Mini-Bag Plus 4.5 g, Intravenous, ONCE, 1 dose, On Tue04/05/21 at 2333, Administer over 0.5 Hours, Warning Vesicant/Irritant Medication Do not administer or Y-site with lactated ringers., Indication for (Active or Suspected): Skin/Skin Structure piperacillin-tazobactam (Zosyn) 4.5 g New Bag 04/06/2021 9:28 AM EDT 4.5 g 25 mL/hr vial attach to sodium chloride 0.9% 100 mL Mini-Bag Plus 4.5 g, Intravenous, EVERY 8 HOURS, First dose on Tue04/06/21 at 0800, Until Discontinued, Administer over 4 Hours, Warning Vesicant/Irritant Medication Do not administer or Y-site with lactated ringers., Indication for (Active or Suspected): Skin/Skin Structure sodium chloride 0.9 % (flush) (BD PosiFlush Given 04/08/2021 8:3 6 AM EDT 5 mLs Normal Saline 0.9) flush 5 mL 5 mL, Intravenous, 2 TIMES DAILY, First dose on Tue04/06/21 at 0900, Until Discontinued, Routine Given 04/07/2021 9:16 PM EDT 5 mLs Given 04/07/2021 10:00 AM EDT 5 mLs spironolactone (Aldactone) tablet 25 mg Given 04/08/2021 8:34 AM EDT 25 mg 25 mg, Oral, DAILY, First dose on Tue04/06/21 at 0900, Until Discontinued, DO NOT SPLIT, CRUSH OR OPEN, Routine Given 04/07/2021 10:00 AM EDT 25 mg Given 04/06/2021 9:30 AM EDT 25 mg vancomycin (Vancocin) 2 gram in New Bag 04/06/2021 12:42 AM EDT 2 g 250 mL/hr sodium chloride 0.9% 500 mL infusion 2 g, Intravenous, ONCE, 1 dose, On Tue04/06/21 at 0001, Administer over 120 Minutes, Warning Vesicant/Irritant Medication , Indication for (Active or Suspected): Skin/Skin Structure vancomycin (Vancocin) 2 gram in sodium New Bag 04/07/2021 5:24 AM EDT 2 g 250 mL/hr chloride 0.9% 500 mL infusion 2 g, Intravenous, EVERY 12 HOURS, First dose on Tue04/06/21 at 0600, Until Discontinued, Administer over 120 Minutes, Maximum infusion rate is 1 gram/hour. If flushing of the face, neck, upper body, arms, and/or back occurs decrease infusion rate by 50% to reduce the severity of symptoms. This medication may have an associated drug lab level. Please see MAR for scheduled level. Warning Vesicant/Irritant Medication , Indication for (Active or Suspected): Skin/Skin Structure New Bag 04/06/2021 6:31 PM EDT 2 g 250 mL/hr New Bag 04/06/2021 6:49 AM EDT 2 g 250 mL/hr documented in this encounter Active and Recently Administered Medications Times are shown in EDT. Scheduled Medication Order 04/06/2021 04/07/2021 04/08/2021 aspirin tablet 325 mg 0933 (Given - Provider: Bandar rachel RN) 1000 (Given - Provider: Lisa Holley RN) 0834 (Given - Provider: Jay Reynaga) 325 mg, Oral, DAILY, First dose on Tue at 0900, Until Discontinued, Routine buPROPion (Wellbutrin) tablet 100 mg 0933 (Given - Pro vider: Bandar Up RN)2246 (Given - Provider: Sukhwinder Eckert RN) 1000 (Given - Provider: Lisa Holley RN)211 (Given - Provider: Patricia Gonzales RN) 0834 (Given - Provider: Loc Valdez RN) 100 mg, Oral, 2 TIMES DAILY, First dose on Tue04/06/21 at 0900, Until Discontinued, Routine busPIRone (Buspar) tablet 10 mg 0933 (Given - Provider : Bandar Up RN)1610 (Given - Provider: Bandar Up RN)2245 (Given - Provider: Sukhwinder Eckert RN) 1000 (Given - Provider: Lisa ajquez RN)1535 (Given - Provider: Lisa Holley RN)211 (Given - Provider: Patricia Gonzales RN) 0835 (Given - Provider: Loc Valdez RN)1418 (Given - Provider: Loc Valdez RN) 10 mg, Oral, 3 TIMES DAILY, First dose o n Tue04/06/21 at 0900, Until Discontinued, Routine calciTRIoL (Rocaltrol) capsule 0.25 mcg 0933 (Given - Provider: Bandar Up RN)2245 (Given - Provider: Sukhwinder Eckert RN) 1000 (Given - Provider: Lisa Holley RN)2116 (Given - Provider: Patricia Gonzales, OZ) 0834 (Given - Provider: Loc Valdez, OZ) 0.25 mcg, Oral, 2 TIMES DAILY, First dos e on Tue04/06/21 at 0900, Until Discontinued, Routine ceFAZolin (Ancef) 2 g in dextrose 5% 100 mL infusion 1348 (Not Given - Provider: Lisa Holley RN - Reason: See comment - Comment: IV came apart from patient, antibiotic on floor.)1418 (Stopped - Provider: Lisa Holley RN)1630 (New Bag - Provider: Lisa Holley RN) 0837 (New Bag - Provider: Loc Valdez RN)0907 (Stopped - Provider: Loc Valdez RN) 2 g, Intravenous, EVERY 8 HOURS, First d ose on Tue04/07/21 at 1200, Until Discontinued, Administer over 30 Minutes, Indication for (Active or Suspected): Skin/Skin Structure 1700 (Stopped - Provider: Yun Holley RN)2000 (Not Given - Provider: Patricia Gonzales RN - Reason: See comment - Comment: retimed for 0000, last admin was 1600)2316 (New Bag - Provider: Patricia Gonzales RN) 2346 (Stopped - Provider: Patricia Gonzales RN) citalopram (CeleXA) tablet 20 mg 0930 (Given - Provider: Jacquelyn Up RN) 1000 (Given - Provider: Lisa Holley RN) 0835 (Given - Provider: Loc Valdez RN) 20 mg, Oral, DAILY, First dose on Tue at 0900, Until Discontinued, Routine furosemide (Lasix) tablet 80 mg 0933 (Given - Provider: Bandar Up RN) 1000 (Given - Provider: Lisa Holley RN) 0834 (Given - Provider: Loc Valdez RN) 80 mg, Oral, DAILY, First dose on Tue at 0900, Until Discontinued, Routine ketorolac (Toradol) (30 mg/mL) injection 30 mg (COMPLE CLAUDIA) 0039 (Given - Provider: Shiloh Kruger LPN) 30 mg, Intravenous, ONCE, 1 dose, On Tue04/06/21 at 0038, STAT levothyroxine (Synthroid) tablet 250 mcg 0553 (Given - Provider: Sukhwinder Eckert RN) 0524 (Given - Provider: Sukhwinder Eckert RN) 0543 (Given - Provider: Patricia Gonzales, OZ) 250 mcg, Oral, EVERY MORNING, First dose on Tue04/06/21 at 0600, Until Discontinued, Routine lidocaine (Lidoderm) 5% patch 3 patch(Linked Group 1) 1155 (Patch Applied - Provider: Bandar Up RN) 1011 (Patch Applied - Provider: Lisa Holley RN) 1227 (Patch Applied - Provider: Loc Valdez RN) 3 patch, Transdermal, EVERY 24 HOURS, Fi rst dose on Tue04/06/21 at 1030, Until Discontinued, Apply patch(es) for 12 hours, and then remove for 12 hours., Routine lidocaine (Lidoderm) topical patch REMOVAL(Linked Grou p 1) 2144 (Patch Removed - Provider: Sukhwinder Eckert RN) 2144 (Patch Removed - Provider: Patricia Gonzales, OZ) Transdermal, EVERY 24 HOURS, First dose on Tue04/06/21 at 2145, Until Discontinued, Remove lidocaine 5% patch montelukast (Singulair) tablet 10 mg 2244 (Given - Pro vider: Sukhwinder Eckert RN) 2114 (Given - Provider: Patricia Gonzales RN) 10 mg, Oral, NIGHTLY, First dose on Tue04/06/21 at 2100, Until Discontinued, Routine piperacillin-tazobactam (Zosyn) 4.5 g vi al attach to sodium chloride 0.9% 100 mL Mini-Bag Plus (CANCELED) 0929 (New Bag - Provider: Bandar rachel RN)1606 (Stopped - Provider: Bandar Up RN) 4.5 g, Intravenous, EVERY 8 HOURS, First dose on Tue04/06/21 at 0800, Until Discontinued, Administer over 4 Hours, Warning Vesicant/Irritant Medication Do not administer or Y-site with lactated ri ngers., Indication for (Active or Suspected): Skin/Skin Structur e sodium chloride 0.9 % (flush) (BD PosiFlush Normal Boni ine 0.9) flush 5 mL 0937 (Given - Provider: Bandar Up RN)2100 (Given - Provider: Sukhwinder Eckert, OZ) 1000 (Given - Provider: Lisa jaquez RN)2116 (Given - Provider: Patricia Gonzales RN) 0836 (Given - Provider: Jay Reynaga) 5 mL, Intravenous, 2 TIMES DAILY, First dose on Tue04/06/21 at 0900, Until Discontinued, Routine spironolactone (Aldactone) tablet 25 mg 0930 (Given - Provider: Bandar Up RN) 1000 (Given - Provider: Lisa Holley, OZ) 0834 ( Given - Provider: Loc Valdez, OZ) 25 mg, Oral, DAILY, First dose on Tue at 0900, Until Discontinued, DO NOT SPLIT, CRUSH OR OPEN, Routine vancomycin (Vancocin) 2 gram in sodium c hloride 0.9% 500 mL infusion (COMPLETED) 004 (New Bag - Provider: Fe Garcia RN)0242 (Stopped - Provider: Jess Sandoval RN) 2 g, Intravenous, ONCE, 1 dose, On Tue at 0001, Administer over 120 Minutes, Warning Vesicant/Irritant Medication , Indication for (Active or Suspected): Skin/Skin Structure vancomycin (Vancocin) 2 gram in sodium chloride 0.9% 5 00 mL infusion (CANCELED) 0649 (New Bag - Provider: Jess Sandoval RN)0849 (Stopped - Provider: Bandar Up RN)183 (New Bag - Provider: Bandar Up RN)2030 (Stopped - Provider: Sukhwinder Eckert RN) 0524 (New Bag - Provider: Sukhwinder Eckert RN)0724 (Stopped - Provider: Lisa Holley RN) 2 g, Intravenous, EVERY 12 HOURS, First dose on Tue04/06/21 at 0600, Until Discontinued, Administer over 120 Minutes, Maximum infusion rate is 1 gram/hour. If flushing of the face, neck, upper body, arm s, and/or back occurs decrease infusion rate by 50% to reduce the severity of symptoms. This medication may have an associated drug lab level. Please see MAR for scheduled level. Warning Vesicant/Irr itant Medication , Indication for (Active or Suspec claudia): Skin/Skin Structure PRN Medication Order 04/06/2021 04/07/2021 04/08/2021 acetaminophen (Tylenol) tablet 650 mg 0517 (Given - Pr ovider: Sukhwinder Eckert RN)1155 (Given - Provider: Bandar Up RN)1831 (Given - Provider: Bandar Up RN) 0533 (Given - Provider: Sukhwinder summers RN)1348 (Given - Provider: Lisa Holley RN) 0835 (Given - Provider: Jay Reynaga) 650 mg, Oral, EVERY 6 HOURS PRN, Startin g on Tue04/06/21 at 0444, Until Tue04/08/21 at 1627, Pain, Fever, Administer for temperature greater than or equal to 38.2 degrees celsius. Maximum daily dose of acetaminophen from all sources not to ex ceed 4,000 mg. When ordered for pain, acetaminophen should be given even when other ordered pain medications are indicated., Routine calcium carbonate (Tums) chewable tablet 500-1,000 mg 1709 (Given - Provider: Bandar Up RN) 500-1,000 mg, Oral, EVERY 4 HOURS PRN, S tarting on Tue04/06/21 at 0444, Until Tue04/08/21 at 1627, Heartburn, Give 500 mg (1 tablet) for mild to moderate heartburn. Give 1,000 mg (2 tablets) for severe heartburn., Routine fluticasone propionate (Flonase) 50 mcg/actuation nasal spray 1 spray 1 spray, Each Nare, DAILY PRN, Starting on Tue04/06/21 at 0445, Until Tue04/08/21 at 1627, Rhinitis, Allergies, Routine HYDROmorphone (Dilaudid) (0.5 mg/0.5 mL) injection syringe 0.4 m g 0.4 mg, Intravenous, EVERY 4 HOURS PRN, Starting on Tue04/06/21 at 1253, Until Tue04/08/21 at 1627, Pain, Prior to dressing changes for pain, Routine ipratropium-albuteroL (Duoneb) 0.5 mg-3 mg(2.5 mg base)/3 mL nebulizer solution 3 mL 3 mL, Nebulization, 4 TIMES DAILY PRN, S tarting on Tue04/06/21 at 0444, Until Tue04/08/21 at 1627, Wheezing, dyspnea and/or wheezing, Routine ketorolac (Toradol) (30 mg/mL) injection 30 mg 0516 (G iven - Provider: Sukhwinder Eckert RN)1831 (Given - Provider: Bandar Up, OZ) 1736 (Given - Provider: Lisa Holley, OZ) 30 mg, Intravenous, EVERY 6 HOURS PRN, S tarting on Tue04/06/21 at 0445, Until Tue04/08/21 at 1627, Pain, STAT lidocaine (Xylocaine) 1% (10 mg/mL) injection 3 mg 3 mg (0.3 mL), Subcutaneous, ONCE PRN, 1 dose, Starting on Tue04/06/21 at 0444, Until Tue04/08/21 at 1627, for discomfort with PIV insertion, Routine ondansetron (pf) (Zofran) (2 mg/mL) injection 4 mg 171 5 (Given - Provider: Bandar Up, OZ) 4 mg, Intravenous, EVERY 8 HOURS PRN, St arting on Tue04/06/21 at 1655, Until Tue04/08/21 at 1627, Nausea sodium chloride 0.9 % (flush) (BD PosiFlush Normal Saline 0.9) f lush 5-20 mL 5-20 mL, Intravenous, EVERY 1 MIN PRN, S tarting on Tue04/06/21 at 0444, Until Tue04/08/21 at 1627, flush, Flush pertains to all indwelling lines. Flush per protocol found in the job aid using the link provided on this medication record., Routine Linked Groups Order Group 1: lidocaine (Lidoderm) 5% patch 3 patchJump to med 3 patch, Transdermal, EVERY 24 HOURS, Fi rst dose on Tue04/06/21 at 1030, Until Discontinued
Apply patch(es) for 12 hours, and then remove for 12 hours.
Routine And lidocaine (Lidoderm) topical patch REMOVALJump to med Transdermal, EVERY 24 HOURS, First dose on Tue04/06/21 at 2145, Until Discontinued
Remove lidocaine 5% patch
documented in this encounter Care Teams Solar Energy Technician Relationship Specialty Start Date End Date Alphonso Cerna MD PCP - General Family Medicine 02/19/[address] [place] [address] documented as of this encounter
--- OUTSIDE RECORDS SUMMARY | 2022-03-05 02:15 | XMS_ITS | Encounter Summary ---
:1955 [place] [address] Care Team Providers Name Role Phone Alphonso Murphy MD Primary Care Provider [phone] Encounter Details Date Type Department Care Team Description 06/23/2021 Telephone Wound Care at [facility] [place] [id number] Social History Tobacco Use Types Packs/Day [...] Lifestyle On track No Angie, (09/21/[address] 12:35 PM EST) [...] google or use a book such as [employer] (available on [employer]) OR [employer] (if you're using a package, it will have calorie and protein info on the back) - The other thing to write down would be grams of protein - 1500 is a good starting point for a ca jeffrey goal documented as of this encounter Visit Diagnoses Not on filedocumented in this encounter Care Teams Pre Algebra Teacher Relationship Specialty Start Date End Date Alphonso Murphy MD PCP - General Family Medicine 02/19/[address] [place] [address] documented as of this encounter
--- OUTSIDE RECORDS SUMMARY | 2022-03-05 02:15 | XMS_ITS | Encounter Summary ---
:1955 Author Organization [facility] [place] [address] Care Team Providers Name Role Phone Alphonso Murphy MD Primary Care Provider [phone] Reason for Visit Auth/Cert Specialty Diagnoses / Procedures Referred By Contact Refer red To Contact Diagnoses Multinodular goiter MULTINODULAR GOITER Procedures PRO THYROIDECTOMY=SUBSTERNAL, TRANSCERV PRG EMG, LARYNX PRG US GUIDE INTRAOP THYROIDECTOMY, INCL. SUBSTERNAL, CERVICAL APPROACH (WRVU 17.62) FACIAL NERVE MONITORING, SETUP LARYNGEAL (WRVU 1.57) ULTRASONIC GUIDANCE, INTRAOP (WRVU 1.2) Referral ID Status Reason Start Date Expiration Date Visits Requ ested Visits Authorized [id number] 1 1 Encounter Details Date Type Department Care Team Description 03/03/2021 - Hospital Encounter 3 Lisa Tariq MD 03/04/2021 [facility] [address] Davey GENERAL SURGERY [place] [id number] [phone] [id number] [phone] Social History Tobacco Use Types Packs/Day Years Used Date Former Smoker Cigarettes 3 40 Quit: 10/08/19 11 Smokeless Tobacco: Never Used Alcohol Use Standard Drinks/Week Comments No 0 (1 standard drink = 0.6 oz pure alcoho l) Sex Assigned at Date Recorded Not on file documented as of this encounter Last Filed Vital Signs Vital Sign Reading Time Taken Comments Blood Pressure 129/61 03/04/2021 8:22 AM EDT Pulse 90 03/03/2021 4:30 PM EDT Temperature 36.5 ??C (97.7 ??F) 03/04/2021 8:22 AM EDT Respiratory Rate 18 03/04/2021 8:22 AM EDT Oxygen Saturation 97% 03/04/2021 8:22 AM EDT Inhaled Oxygen Concentration - - Weight 204.9 kg (451 lb 11.2 oz) 03/03/2021 7:01 AM EDT Height 160 cm (5' 3) 03/03/2021 7:01 AM EDT Body Mass Index 80.02 03/03/2021 7:01 AM EDT documented in this encounter Discharge Summaries Morgan Blair MD - 03/04/2021 9:49 AM EDT General Surgery Inpatient - Discharge Summary Patient Name: Radha Masterson Patient Age: 65 y.o. Birthdate: 1955 Admit date: 03/03/2021 Discharge date: 03/04/2021 Admitting Physician: Lisa Singh MD Primary Diagnosis: Multinodular thyroid Secondary Diagnosis: Active Hospital Problems Diagnosis ??? Multinodular thyroid Resolved Hospital Problems No resolved problems to display. Active Non-Hospital Problems Diagnosis ??? BMI greater than 70 ??? Multinodular goiter ??? Vitamin D deficiency ??? Dependence on continuous supplemental oxygen ??? Anxiety ??? Intertrigo ??? Grief at loss of child ??? Depression ??? DAVID treated with BiPAP ??? Pulmonary hypertension ??? Musculoskeletal chest pain ??? Pleural effusion on right HPI: The following was taken from Dr. Singh's clinic note dated 08/29/20: Ms. Radha Masterson is a 65 y.o. female referred by Dr. Mcmullen for evaluation of multiple thyroidnodules. This was initially noted incidently on imaging. Referred for MNG with compression symptoms.No biopsy performed due to body habitus and breathing pattern. She reports compressive symptoms. These include Dysphagia, Pill Dysphagia and Globus sensation. Ultrasound of the thyroid demonstrated 1.9 Suspicious RIGHT thyroid nodule, 1.7cm isthmus nodule, 4cm left thyroid nodule. Fine needle aspiration biopsy not performed. There is no history of head and neck radiation exposure. History of taking thyroid hormone replacement: No History of anterior neck surgery: No History notable for COPD on inhalers and home O2, Pulmonary HTN, DAVID, Morbid Obesity (BMI 71), CHF, Hx of PE, recurrent UTIs. Operations/Major Procedures: Operations: 03/03/2021 Surgeon(s) and Role: * Lisa Singh MD - Primary * Tanika Jensen MD - Resident: Procedure(s): THYROIDECTOMY, INCL. SUBSTERNAL, CERVICAL APPROACH (WRVU 17.62) FACIAL NERVE MONITORING, SETUP LARYNGEAL (WRVU 1.57) ULTRASONIC GUIDANCE, INTRAOP (WRVU 1.2) Operative Findings: - US consistent with clinic findings of multinodular goiter, no lateral abnormal nodes - Total thyroidectomy performed, identified right vagus, right RLN, left RLN, in situ right lower and left upper parathyroid, the right upper and left lower re- implanted into right SCM marked with clips Hospital Course: Radha Masterson was taken to the operating room where the above procedures were performed. She tolerated the operation well and without complication. She was admitted post-operatively forclinical monitoring and further management. The patient's hospital course was uncomplicated and she was deemed medically ready for discharge on post-operative day 1. She was continued on her home medications. Her PTH and calcium were monitored postoperatively which were both noted to be low. She was started on calcitriol 0.25mcg BID and instructed to take 1g Tums TID. Important Studies and Lab Data: See below. Pathology: Pending Labs: PTH: 8 Calcium: 7.6 Studies: None Discharge Exam: Last value Range last 12 hrs Temperature Temp: 36.5 ??C (97.7 ??F) Temp: [36.4 ??C (97.5 ??F)-36.5 ??C (97.7 ??F)] Heart Rate Heart Rate: 90 Heart Rate: -- Blood Pressure BP: 129/61 BP: (115-139)/(57-62) Respiratory Rate Resp: 18 Resp: [18-20] SpO2 SpO2: 97 % SpO2: [93 %-97 %] I/Os: I/O last 3 completed shifts: In: 1400 [I.V.:1400] Out: 1585 [Urine:1550; Blood:35] No intake/output data recorded. Gen: NAD, alert & oriented x3 Neck: mild ecchymosis, though soft with no evidence of hematoma. Incision c/d/i with dermabond and steri strips. Pulm: CTAB, no crackles/wheezes Card: RRR, no m/r/g Abd: Non-distended, soft, nontender. Wound: incision clean, dry, intact, no purulent drainage Ext: no edema, 2+ peripheral pulses Discharge Plans: Discharge to: Home VNA: No Discharge Conditions/Prognosis: Stable Discharge Medications: The following medications have been prescribed for you. If you notice any adverse reactions to your medications, please contact your primary care physician immediately or go to the nearest Emergency Department. Your Medications New Medications Dose Details calciTRIoL 0.25 mcg Cap Commonly known as: Rocaltrol Take 1 capsule by mouth 2 times daily. 0.25 mcg Quantity: 60 tablet Refills: 3 calcium carbonate 200 mg calcium (500 mg) Chew Commonly known as: Tums Take 2 tablets by mouth 3 times daily. 1,000 mg Refills: 0 levothyroxine 125 mcg Tab Commonly known as: Synthroid Take 2 tablets by mouth daily. Start taking on: March 05, 2021 250 mcg Quantity: 90 tablet Refills: 3 Continued medications, unchanged Dose Details ALBUTEROL INHL Inhale 2 puffs into the lungs daily. 2 puff Refills: 0 ascorbic acid (vitamin C) 1,000 mg Tab Commonly known as: VITAMIN C Take by mouth. Refills: 0 aspirin 325 mg Tab Take 325 mg by mouth Daily. 325 mg Refills: 0 buPROPion 100 mg Tab Commonly known as: Wellbutrin Take 100 mg by mouth. 100 mg Refills: 0 busPIRone 5 mg Tab Commonly known as: Buspar Take 10 mg by mouth 3 times daily. 10 mg Refills: 0 citalopram 20 mg Tab Commonly known as: CeleXA Take 20 mg by mouth daily. 20 mg Refills: 0 clotrimazole 1 % Crea Commonly known as: LOTRIMIN apply topically three times a day Refills: 0 ergocalciferoL (vitamin D2) 50,000 unit Cap Commonly known as: vitamin D2 TAKE 1 CAPSULE BY MOUTH 2 TIMES A WEEK FOR 24 DOSES Quantity: 24 capsule Refills: 0 fluticasone propionate 50 mcg/actuation Spsn Commonly known as: FLONASE SHAKE LQ AND U 1 SPR IEN D Refills: 0 furosemide 40 mg Tab Commonly known as: Lasix Take 2 tablets by mouth daily. 80 mg Quantity: 180 tablet Refills: 3 gabapentin 100 mg Cap Commonly known as: Neurontin Take 100 mg by mouth 2 times daily. 100 mg Refills: 0 ipratropium-albuteroL 0.5 mg-3 mg(2.5 mg base)/3 mL Nebu Commonly known as: DUONEB Take 3 mLs by nebulization every 6 hours as needed. 3 mL Refills: 0 Mag 64 64 mg Tbec TAKE 1 TABLET BY MOUTH ONCE DAILY Generic drug: Magnesium Chloride Refills: 0 metFORMIN 1,000 mg Tab Commonly known as: GLUCOPHAGE Take 1,000 mg by mouth 2 times daily. 1,000 mg Refills: 0 montelukast 10 mg Tab Commonly known as: Singulair Take 10 mg by mouth nightly. 10 mg Refills: 0 Nystop Powd apply topically twice a day if needed Generic drug: nystatin Refills: 0 OXYGEN-AIR DELIVERY SYSTEMS MISC 2 L. 2 L Refills: 0 potassium chloride 10 mEq Cpsr Commonly known as: MICRO-K Take 20 mEq by mouth 2 times daily. 20 mEq Refills: 0 silver sulfADIAZINE 1 % Crea Commonly known as: SILVADENE Apply topically Twice daily. Refills: 0 spironolactone 25 mg Tab Commonly known as: Aldactone Take 1 tablet by mouth daily. 25 mg Quantity: 90 tablet Refills: 3 triamcinolone 0.1 % Crea Commonly known as: KENALOG apply topically to RASH ON LEGS twice a day Refills: 0 Updated Allergies/ADRs: Allergies Allergen Reactions ??? Red Blood Cells Other (See Comments) Antibodies-Difficult to Crossmatch DO NOT REMOVE Please contact the Blood Bank at [phone] for questions. ??? Iodine And Iodide Containing Products rash ??? Oxycodone Rash ??? Morphine Rash Other reaction(s): PRURITIS Scheduled Appointments: Future Appointments Date Time Provider Department Center 03/19/2021 5:15 PM Lisa Singh MD [facility] [place] 07/28/2021 10:30 AM Mike Robles MD [facility] [place] [facility] Outpatient Services/Studies: No discharge procedures on file. Instructions Given to Patient at Discharge:. An After Visit Summary was printed and given to the patient. Patient Instructions ???THYROIDECTOMY PATIENT DISCHARGE INSTRUCTIONS What to Expect Following Surgery: Swelling and/or bruising under and around the incision is normal. It is usually greatest 3-5 days following surgery. You may also feel the sensation of swelling or firmness that can last for a month ormore. Your scar will be most visible for 1-2 months following your operation and will gradually fade over the next 6-8 months. As it heals, a scar often looks more pink or red than the skin around it. You may feel a ???healing ridge?? directly under the incision. This is completely normal and is theresult of swelling, healing, and scar formation. Usually, this will go away when healing is completein 3-6 months. The skin just above and below your incision will feel numb. This will improve over several months but some patients may have a long-term decrease in sensation over these areas. You may notice minor difficulty in swallowing which will improve over time. Your voice may be hoarse or weak at first--this is normal and does not mean there was damage done tothe nerves that make the vocal cords move. Your voice will usually go back to normal after several days to a few weeks. Incision Care: Neck incisions heal rapidly--usually within a week or two. The incision can get wet in the shower immediately after surgery. However, do not submerge the incision underwater (i.e. bath tub, swimming pool, hot tub, etc.) for at least 2 weeks after your operation. Pat the incision dry immediately following your shower. For the first 2 weeks after surgery, do not scrub the incision. You have a skin glue and steri-strip (tape) closure. This can be removed 10-14 days after surgery. You can use adhesive remover (provided at the time of surgery) or baby oil mineral oil to help remove the tape and glue. Do not use any ointments/salves/Vitamin E on the incision for 2 weeks as these may impair early wound healing. After 2 weeks (and after the skin glue and tape is gone), you may apply vitamin E oil or scar creams to the incision. Gentle massage with your finger tips on the scar and around the scar willhelp soften and flatten the scar. Do this 2-4 times a day for best results. If you notice that your scar is raised or bumpy - you can try applying silicone sheets. These can befound at the local pharmacy usually in the bandage section. One name brand is called Scar-Away butthere are several other brands. Incisions are sensitive to sunlight. For at least 1 year after surgery you should use sunscreen whenoutdoors for long periods of time to prevent permanent darkening of the scar. This includes tanning booths. Pain Management: You may apply ice or cold packs to the incision for 15-20 minutes several times a day for the first 2-3 days following surgery to help with discomfort. You may feel some stiffness/soreness in your shoulders, back, and neck. This may take a few days or weeks to go away completely. You may use moist warm heat, a heating pad, or massage to these areas for 15-20 minutes several times a day. For the first two nights after surgery - sleep with 1-2 extra pillows or your head slightly elevated. This will help with swelling. Do not be afraid to move your neck - gently flexing and stretching your neck muscles and light massage will help prevent stiffness NSAIDs (non-steroidal anti-inflammatory drugs) such as ibuprofen (Motrin, Advil) and naproxen (Naprosyn, Aleve) and acetaminophen (Tylenol) are most helpful for the pain experienced after surgery. Generally, these are even more effective than the stronger pain medications (narcotics or opioids) after thyroid surgery. Take NSAIDS and/or Tylenol [id number] for the first 3-5 days following surgeryto help minimize pain. You can take 1000mg of Tylenol every 8 hours. If you do not have problems with kidney function or stomach ulcers, you can also take ibuprofen 800mg every 8 hours. It is unusual to require opioid pain medications after thyroid surgery. If you do need them, it is usually only for the first 1-2 days after surgery. If you were prescribed oxycodone, use only for severe pain, and never take with alcohol. Opioid medications typically cause constipation, so we suggest using a stool softener in addition (metamucil, colace...etc.). Diet & Activity: No restrictions in your diet are necessary. However, most people have a sore throat for the first 1-2 days and softer foods and colder foods may go down better. Activity as tolerated by your comfort level. You may return to work as soon as you would like. However, if your job requires heavy lifting or strenuous physical activity, we ask you to avoid this for the first 2 weeks after surgery. NO DRIVING for at least 8 hours following any dose of an opioid pain medication if one was prescribed for you. Most people feel comfortable driving within 3-5 days after surgery - just make sure you can turn your head readily to ensure safe and defensive driving. Thyroid Hormone: If you had a total thyroid operation, you will be prescribed thyroid hormone replacement (levothyroxine, synthroid, levothroid) to take daily. Take this at the same time each day. You should take your thyroid hormone on an empty stomach and byitself. If possible, avoid taking your calcium supplementation or any other medication within four hours of taking your thyroid hormone pill. A blood test will performed in approximately 6 weeks to ensure dosing is correct for you. Pathology Report: All specimens removed at surgery are analyzed by a pathologist. This report usually takes approximately 7 business days to be ready. Dr. Singh will call you with this report as soon as it is available. Follow-up Appointment: Will be scheduled with Dr. Singh via telephone, video, or in person depending on your preference andpost-operative course. Date and time as well as any required labs will be mailed to you Please call [phone] to confirm the date and time of your appointment if you do not hear from usin the next 2 weeks Call Doctor for: Call if you have trouble talking or breathing (call [phone] if this is severe) Call if you develop numbness or tingling around your mouth/lips or on the tips of your fingers or your hands, as this may mean your calcium is low. This may also be related to pain medication, where the breathing tube was positioned against your lips, the positioning of your arms and hands in the operating room, or how you were positioned when sleeping. If the sensation does not go away within a halfhour, or if it worsens prior to that, call us immediately so we can discuss increasing your calcium if we think you need it. Call if your incision becomes red or begins to drain fluid. Call if you have fevers greater than 101 degrees F Call if you have persistent nausea or vomiting (this may be related to opioid pain medications). Call if you begin feeling worse, rather than better, several days after surgery. Information about Calcium Supplementation (ONLY for patients that have had their ENTIRE thyroid removed) WHAT IS THE EFFECT OF SURGERY ON MY CALCIUM LEVELS? ; The parathyroid glands are responsible for controlling the body???s calcium levels. In 15-20% of patients, they do not work perfectly after thyroid surgery. This can result in a decrease in blood calcium levels. This is usually temporary and the parathyroid glands almost always make a full recovery.We check a parathyroid lab in the recovery room to determine if you are at risk of low calcium aftersurgery. If the lab is low, we will put you on calcium supplements and/or prescription Vitamin D (calcitriol) after surgery. WHAT ARE THE SYMPTOMS OF LOW CALCIUM? ; If the calcium level in the blood stream decreases after surgery, you may experience symptoms of numbness, tingling, or cramps in the fingers, toes, legs, or around the mouth. ; WHAT ARE CALCIUM SUPPLEMENTS? ; There are several different types of calcium sold over the counter. Some of the more common brandsyou will see include: Tums, Viactiv, Citracal, Caltrate. ; The two main forms of calcium in supplements are carbonate and citrate. Calcium carbonate (Tums, Viactiv) is absorbed most efficiently when taken with food, whereas calcium citrate (Citracal) is absorbed equally well when taken with or without food. HOW MUCH CALCIUM SHOULD I TAKE AFTER SURGERY? ; If you were prescribed calcium after surgery (usually Tums) - take as instructed. ; If you are experiencing symptoms of low calcium (numbness/tingling) - take 2000mg of Tums and wait30 minutes. If symptoms still persist, take an additional dose of 2000mg of Tums and again wait 30 minutes. If symptoms still persist after two doses, then call our office. If symptoms do resolve after1-2 doses, then start taking calcium supplements of 600-1200mg 2-3 times daily. WHAT ABOUT VITAMIN D? ; Vitamin D can be very helpful with calcium levels, as adequate vitamin D stores in the body help your body absorb calcium. ; If you were on Vitamin D prior to surgery, this can be resumed post-operatively. ; Additional Vitamin D may be included in your calcium supplement, this is fine as well. ; If you are not on Vitamin D and would like to start after surgery, an over the counter supplement of 400-800 IU is the usual recommended dosage, however, if you are on other medications or have otherhealth issues, you will want to discuss this with your PCP. ; If your surgeon is concerned about your calcium levels, (s)he may prescribe a different form of vitamin D called Rocaltrol (Calcitriol). This should be taken as instructed. Note that this is not a replacement for calcium, it should be taken in addition to the recommended calcium supplements to help with absorption. COMMONLY ASKED QUESTIONS: ; Are there side effects to calcium supplements? The most common side effect is constipation and stomach upset. If you are taking high doses of calcium after surgery, be sure to include a stool softener or laxative as needed. Minimize narcotics, as these can also cause constipation. Finally, decrease your calcium supplements if you note no symptoms of low calcium as noted above. Phone number for questions: [phone] before 5 PM on weekdays [phone] after 5 PM and on weekends/holidays. 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 General Instructions None Follow-up Recommendations for Providers: Medication changes: 250mcg levothyroxine daily, 0.25mcg calcitriol BID, 1g Tums TID. Diet changes: none CC: Alphonso Murphy MD Signed: Morgan Blair MD [facility] 03/04/2021 10:20 AM documented in this encounter Discharge Instructions Patient InstructionsTanika Jensen MD - 03/03/2021 7:58 PM EDT ???THYROIDECTOMY PATIENT DISCHARGE INSTRUCTIONS What to Expect Following Surgery: Swelling and/or bruising under and around the incision is normal. It is usually greatest 3-5 days following surgery. You may also feel the sensation of swelling or firmness that can last for a month ormore. Your scar will be most visible for 1-2 months following your operation and will gradually fade over the next 6-8 months. As it heals, a scar often looks more pink or red than the skin around it. You may feel a ???healing ridge?? directly under the incision. This is completely normal and is theresult of swelling, healing, and scar formation. Usually, this will go away when healing is completein 3-6 months. The skin just above and below your incision will feel numb. This will improve over several months but some patients may have a long-term decrease in sensation over these areas. You may notice minor difficulty in swallowing which will improve over time. Your voice may be hoarse or weak at first--this is normal and does not mean there was damage done tothe nerves that make the vocal cords move. Your voice will usually go back to normal after several days to a few weeks. Incision Care: Neck incisions heal rapidly--usually within a week or two. The incision can get wet in the shower immediately after surgery. However, do not submerge the incision underwater (i.e. bath tub, swimming pool, hot tub, etc.) for at least 2 weeks after your operation. Pat the incision dry immediately following your shower. For the first 2 weeks after surgery, do not scrub the incision. You have a skin glue and steri-strip (tape) closure. This can be removed 10-14 days after surgery. You can use adhesive remover (provided at the time of surgery) or baby oil mineral oil to help remove the tape and glue. Do not use any ointments/salves/Vitamin E on the incision for 2 weeks as these may impair early wound healing. After 2 weeks (and after the skin glue and tape is gone), you may apply vitamin E oil or scar creams to the incision. Gentle massage with your finger tips on the scar and around the scar willhelp soften and flatten the scar. Do this 2-4 times a day for best results. If you notice that your scar is raised or bumpy - you can try applying silicone sheets. These can befound at the local pharmacy usually in the bandage section. One name brand is called Scar-Away butthere are several other brands. Incisions are sensitive to sunlight. For at least 1 year after surgery you should use sunscreen whenoutdoors for long periods of time to prevent permanent darkening of the scar. This includes tanning booths. Pain Management: You may apply ice or cold packs to the incision for 15-20 minutes several times a day for the first 2-3 days following surgery to help with discomfort. You may feel some stiffness/soreness in your shoulders, back, and neck. This may take a few days or weeks to go away completely. You may use moist warm heat, a heating pad, or massage to these areas for 15-20 minutes several times a day. For the first two nights after surgery - sleep with 1-2 extra pillows or your head slightly elevated. This will help with swelling. Do not be afraid to move your neck - gently flexing and stretching your neck muscles and light massage will help prevent stiffness NSAIDs (non-steroidal anti-inflammatory drugs) such as ibuprofen (Motrin, Advil) and naproxen (Naprosyn, Aleve) and acetaminophen (Tylenol) are most helpful for the pain experienced after surgery. Generally, these are even more effective than the stronger pain medications (narcotics or opioids) after thyroid surgery. Take NSAIDS and/or Tylenol [id number] for the first 3-5 days following surgeryto help minimize pain. You can take 1000mg of Tylenol every 8 hours. If you do not have problems with kidney function or stomach ulcers, you can also take ibuprofen 800mg every 8 hours. It is unusual to require opioid pain medications after thyroid surgery. If you do need them, it is usually only for the first 1-2 days after surgery. If you were prescribed oxycodone, use only for severe pain, and never take with alcohol. Opioid medications typically cause constipation, so we suggest using a stool softener in addition (metamucil, colace...etc.). Diet & Activity: No restrictions in your diet are necessary. However, most people have a sore throat for the first 1-2 days and softer foods and colder foods may go down better. Activity as tolerated by your comfort level. You may return to work as soon as you would like. However, if your job requires heavy lifting or strenuous physical activity, we ask you to avoid this for the first 2 weeks after surgery. NO DRIVING for at least 8 hours following any dose of an opioid pain medication if one was prescribed for you. Most people feel comfortable driving within 3-5 days after surgery - just make sure you can turn your head readily to ensure safe and defensive driving. Thyroid Hormone: If you had a total thyroid operation, you will be prescribed thyroid hormone replacement (levothyroxine, synthroid, levothroid) to take daily. Take this at the same time each day. You should take your thyroid hormone on an empty stomach and byitself. If possible, avoid taking your calcium supplementation or any other medication within four hours of taking your thyroid hormone pill. A blood test will performed in approximately 6 weeks to ensure dosing is correct for you. Pathology Report: All specimens removed at surgery are analyzed by a pathologist. This report usually takes approximately 7 business days to be ready. Dr. Singh will call you with this report as soon as it is available. Follow-up Appointment: Will be scheduled with Dr. Singh via telephone, video, or in person depending on your preference andpost-operative course. Date and time as well as any required labs will be mailed to you Please call [phone] to confirm the date and time of your appointment if you do not hear from usin the next 2 weeks Call Doctor for: Call if you have trouble talking or breathing (call [phone] if this is severe) Call if you develop numbness or tingling around your mouth/lips or on the tips of your fingers or your hands, as this may mean your calcium is low. This may also be related to pain medication, where the breathing tube was positioned against your lips, the positioning of your arms and hands in the operating room, or how you were positioned when sleeping. If the sensation does not go away within a halfhour, or if it worsens prior to that, call us immediately so we can discuss increasing your calcium if we think you need it. Call if your incision becomes red or begins to drain fluid. Call if you have fevers greater than 101 degrees F Call if you have persistent nausea or vomiting (this may be related to opioid pain medications). Call if you begin feeling worse, rather than better, several days after surgery. Information about Calcium Supplementation (ONLY for patients that have had their ENTIRE thyroid removed) WHAT IS THE EFFECT OF SURGERY ON MY CALCIUM LEVELS? ; The parathyroid glands are responsible for controlling the body???s calcium levels. In 15-20% of patients, they do not work perfectly after thyroid surgery. This can result in a decrease in blood calcium levels. This is usually temporary and the parathyroid glands almost always make a full recovery.We check a parathyroid lab in the recovery room to determine if you are at risk of low calcium aftersurgery. If the lab is low, we will put you on calcium supplements and/or prescription Vitamin D (calcitriol) after surgery. WHAT ARE THE SYMPTOMS OF LOW CALCIUM? ; If the calcium level in the blood stream decreases after surgery, you may experience symptoms of numbness, tingling, or cramps in the fingers, toes, legs, or around the mouth. ; WHAT ARE CALCIUM SUPPLEMENTS? ; There are several different types of calcium sold over the counter. Some of the more common brandsyou will see include: Tums, Viactiv, Citracal, Caltrate. ; The two main forms of calcium in supplements are carbonate and citrate. Calcium carbonate (Tums, Viactiv) is absorbed most efficiently when taken with food, whereas calcium citrate (Citracal) is absorbed equally well when taken with or without food. HOW MUCH CALCIUM SHOULD I TAKE AFTER SURGERY? ; If you were prescribed calcium after surgery (usually Tums) - take as instructed. ; If you are experiencing symptoms of low calcium (numbness/tingling) - take 2000mg of Tums and wait30 minutes. If symptoms still persist, take an additional dose of 2000mg of Tums and again wait 30 minutes. If symptoms still persist after two doses, then call our office. If symptoms do resolve after1-2 doses, then start taking calcium supplements of 600-1200mg 2-3 times daily. WHAT ABOUT VITAMIN D? ; Vitamin D can be very helpful with calcium levels, as adequate vitamin D stores in the body help your body absorb calcium. ; If you were on Vitamin D prior to surgery, this can be resumed post-operatively. ; Additional Vitamin D may be included in your calcium supplement, this is fine as well. ; If you are not on Vitamin D and would like to start after surgery, an over the counter supplement of 400-800 IU is the usual recommended dosage, however, if you are on other medications or have otherhealth issues, you will want to discuss this with your PCP. ; If your surgeon is concerned about your calcium levels, (s)he may prescribe a different form of vitamin D called Rocaltrol (Calcitriol). This should be taken as instructed. Note that this is not a replacement for calcium, it should be taken in addition to the recommended calcium supplements to help with absorption. COMMONLY ASKED QUESTIONS: ; Are there side effects to calcium supplements? The most common side effect is constipation and stomach upset. If you are taking high doses of calcium after surgery, be sure to include a stool softener or laxative as needed. Minimize narcotics, as these can also cause constipation. Finally, decrease your calcium supplements if you note no symptoms of low calcium as noted above. Phone number for questions: [phone] before 5 PM on weekdays [phone] after 5 PM and on weekends/holidays. 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 documented in this encounter Medications at Time of Discharge Medication Sig Dispensed Refills Start Date End Date calciTRIoL (Rocaltrol) Take 1 capsule by 60 [...] 06/2019 (FLONASE) 50 route daily as mcg/actuation [place], needed. 04/06 Patient Suspension states that she only takes this when needed NYSTOP Powder apply topically twice 0 02/20/2019 a day if needed triamcinolone (KENALOG) 2 times daily as 0 2018 0.1 % Cream needed. ipratropium-albuterol Take 3 mLs by 0 12/02/2016 (DUONEB) 0.5 mg-3 nebulization every 6 mg(2.5 mg base)/3 mL hours as needed. Solution for Nebulization levothyroxine Take 2 tablets by 90 tablet 3 03/05/202108/15 (Synthroid) 125 mcg mouth daily. Tablet gabapentin (Neurontin) Take 100 mg by mouth 0 04/08/2021 100 mg Capsule 2 times daily. 04/06 Patient states that she has not taken this in a while as the docs have not renewed her prescription documented as of this encounter Progress Notes Mary Masterson RN - 03/04/2021 12:07 PM EDT Patient discharged to home. IV removed, site benign. My assessment remains unchanged from my previous assessment. Patient Denies CP and SOB. Discussed pain management with patient, pain tolerable. Patient medicated prior to discharge. Patient has all belongings. Patient received discharge summary and p rescriptions. These were reviewed. All questions answered. Patient encouraged to call with questionsor concerns. Patient discharged to home with family. Aime Clay RN - 03/04/2021 5:41 AM EDT Assumed care of patient at 0200. Pain medication given with adequate relief. Patient voiding via purewick. Will continue to monitor. Olga Lester RN - 03/03/2021 5:10 PM EDT Pt arrived to floor from PACU after thyroidectomy . Pt alert and oriented x4. Pt reports pain 0/10. Pt denies any chest pain, shortness of breath, dizziness or nausea. Refer to doc flow sheets for fullassessment. Patient oriented to room with call gaitan within reach. Purwick placed. Sat on edge of bedfor dinner. Will continue to monitor. Rody Hackett MD - 03/03/2021 4:26 PM EDT Post-Operative Check Radha Masterson is a 65 y.o. female s/p Procedure(s): THYROIDECTOMY, INCL. SUBSTERNAL, CERVICAL APPROACH (WRVU 17.62) FACIAL NERVE MONITORING, SETUP LARYNGEAL (WRVU 1.57) ULTRASONIC GUIDANCE, INTRAOP (WRVU 1.2) S: No nausea/vomiting, chest pain, SOB, voice changes, trouble swallowing, pain well controlled, offers no complaints. O: Temp: [36.5 ??C (97.7 ??F)-37.1 ??C (98.8 ??F)] Heart Rate: [81-100] Resp: [15-27] BP: (103-144)/(59-92) SpO2: [90 %-96 %] Heart Rate from SpO2: [81 bpm-98 bpm] No intake/output data recorded. I/O this shift: In: 1400 [I.V.:1400] Out: 285 [Urine:250; Blood:35] Recent Results (from the past 24 hour(s)) POCT Glucose Result Value Ref Range POC Glucose 103 65 - 199 mg/dL BLOOD GAS 2 ARTERIAL Result Value Ref Range pH Art 7.39 7.35 - 7.45 pCO2 Art 44 35 - 45 mmHg pO2 Art 88 85 - 104 mmHg HCO3 Art 26.3 (H) 20.0 - 26.0 mmol/L BE Art 1.4 -3.0 - 3.0 mmol/L Hgb Blood Gas 13.4 11.7 - 15.5 gm/dL O2HB Art 95.4 94.0 - 97.0 % COHB Art 0.9 % METHB Art 0.3 <=1.5 % Na Whole Blood 136 135 - 145 mmol/L K Whole Blood 4.1 3.5 - 5.0 mmol/L ICa Whole Blood 1.12 (L) 1.15 - 1.33 mmol/L CL Whole Blood 106 98 - 107 mmol/L Gluc Whole Bld 110 65 - 199 mg/dL Lactate WB 1.6 0.5 - 2.2 mmol/L POCT Glucose Result Value Ref Range POC Glucose 116 65 - 199 mg/dL PTH Result Value Ref Range PTH 8 (L) 15 - 65 pg/mL POCT Glucose Result Value Ref Range POC Glucose 120 65 - 199 mg/dL Physical Exam Gen: A0x3, NAD, resting comfortably HENT: Surgical incision anterior neck C/D/I, no incision swelling. Voice hoarseness (at baseline perpt). No ptosis. Neuro: PERRL, No ptosis, no facial droop, smile symmetric, shoulder shrug 5/5 strength bilaterally, tongue midline CVS: RRR, no murmurs/rubs/gallops Resp: CTAB, breathing comfortably on 3L NC Abd: soft, nontender, nondistended : Large spontaneous urine void in PACU, unmeasured due to spillage. Purewick in place. Ext: SCDs in place, WWP AP Radha A Young is a 65 y.o. female s/p total tyroidectomy w/ reimplantation of parathyroids in R SCM currently in stable condition and recovering well - Carb Control diet 60/60/75 CHO counting level 2 - Pain well controlled - Hemodynamically stable, UOP adequate - Continue post operative plan per primary team Rody Hackett MD 03/03/2021 Jessica Ghosh RN - 03/03/2021 12:24 PM EDT Pt to PACU via bed from OR; monitors applied, alarms set and audible. Neck incision PATTIE with steri-strips intact. Ice applied to site. RT at bedside to set up pt's home Bi-PAP on her home settings. Pt denies pain and nausea at this time. Post-op PTH collected and sent. Pt voiding using bedpan. Pt sleeping between care but arouses to voice and answers questions appropriately. Report given to OZ Echols. Pt transitioned to 3L oxygen via nasal cannula for transport with oxygen saturation of 93%. documented in this encounter H&P Notes Lisa Singh MD - 03/03/2021 7:15 AM EDT My review of the H&P and examination of the patient has revealed no changes in the patient's condition since the H&P was completed, including allergies, medications, or management plan, unless noted. I have also verified the patient, the procedure, and marked the site, if applicable. It is appropriate to proceed with the planned procedure. Plan total thyroidectomy for large substernal goiter. Tanika Jensen MD - 03/03/2021 7:06 AM EDT H&P 24hr interval update/Pre-operative note Please see Dr. Phillip's note from clinic on 08/29/2020 for further information. ID: Radha Masterson is a 65 y.o. female with a hx of obesity, DAVID on BiPAP, pHTN (on lasix 80mg QD, spironolactone 25mg QD) and multiple thyroid nodules with compressive symptoms who presents to [facility] [place] planned total thyroidectomy. S: Radha Masterson endorses no recent change in health. Denies any fever, chills, cough, congestion, change in bowel habits. Prior to arrival today, Radha Masterson was in a normal state of health. O: Physical Exam: Patient Vitals for the past 24 hrs: Temp Pulse Resp BP SpO2 O2 Flow Rate (L/min) O2 Device 03/03/21 0701 37.1 ??C (98.8 ??F) 89 26 (!) 129/94 95 % 3 L/min NC Gen: NAD, AOx3 HEENT: NC/AT, no masses appreciated or scars CVS: RRR Pulm: Comfortable on 3LNC Ext: WWP A/P: Radha Masterson is a 65 y.o. female who presents for planned total thyroidectomy. Will proceed with planned operation. Tanika Jensen MD 03/03/2021 General Surgery p. [phone] documented in this encounter Miscellaneous Notes Plan of Care - Tammy Collins RN - 03/04/2021 1:02 AM EDT OUTCOME EVALUATION NOTE: OUTCOME SUMMARY: PLAN MOVING FORWARD: Blood glucose monitoring, pain control, monitor dressing INDIVIDUALIZED FALL PREVENTION INTERVENTIONS: Patient-specific fall risk factors per assessment: [current deficits]: Tubing, generalized weakness,surgery, needs assistance with getting out of bed Assistance [level of assistance required for transfers and ambulation]: Max 2a S/P to WC Supervision [direct monitoring required during toileting and ADLs]: Hands on w/ ADL's Surveillance [continuous indirect monitoring]: Purposeful Rounding, Call Gaitan in Reach Patient-specific fall prevention interventions for sensory deficits provided, if applicable: Light Adjusted for Task/Safety CPG GOAL OUTCOME EVALUATION: Progress Brief Op Note - Tanika Jensen MD - 03/03/2021 11:42 AM EDT Brief Operative Note Patient Name: Radha Masterson : [id number] MR#: [id number] Case Date: 03/03/2021 Surgeon: Surgeon(s) and Role: * Lisa Singh MD - Primary * Tanika Jensen MD - Resident Preoperative diagnosis: MULTINODULAR GOITER Postoperative diagnosis: MULTINODULAR GOITER Procedure(s) (LRB): THYROIDECTOMY, INCL. SUBSTERNAL, CERVICAL APPROACH (WRVU 17.62) (Bilateral) FACIAL NERVE MONITORING, SETUP LARYNGEAL (WRVU 1.57) (N/A) ULTRASONIC GUIDANCE, INTRAOP (WRVU 1.2) (N/A) Anesthesia: General Findings: - US consistent with clinic findings of multinodular goiter, no lateral abnormal nodes - Total thyroidectomy performed, identified right vagus, right RLN, left RLN, in situ right lower and left upper parathyroid, the right upper and left lower re- implanted into right SCM marked with clips Complications: None Estimated Blood Loss: 50cc Specimens removed during surgery: Order Name Source Comment Collection Info Order Time SPECIMEN TO PATHOLOGY Stitch pompa lower pole. Multinodular goiter Right thyroid lobe. Stitch pompa lower pole. excision No 03/03/2021 10:00 AM Time specimen removed from patient: 9:55 AM Number of tissue samples (in container) Multiple SPECIMEN TO PATHOLOGY Stitch pompa upper pole. Multinodular goiter Left thyroid lobe. Stitch pompa upper pole. excision No 03/03/2021 10:53 AM Time specimen removed from patient: 10:47 AM Number of tissue samples (in container) 1 Fluids: 900cc PRBCs: none (See Anesthesia Record/Report for Other Blood Products) Urine Output: (no urine output recorded) Drains: None Disposition: awakened from anesthesia, extubated and taken to the recovery room in a stable condition, having suffered no apparent untoward event. Condition: doing well without problems Infection Bundle used? N/A Tanika Jensen MD 03/03/2021 Op Note - Lisa Singh MD - 03/03/2021 8:50 AM EDT ENDOCRINE SURGERY OPERATIVE NOTE PATIENT NAME: Radha Masterson : [id number] MR#: [id number] DATE OF SURGERY: 03/03/2021 SURGEON: Surgeon(s) and Role: * Lisa Singh MD - Primary * Tanika Jensen MD - Resident PREOPERATIVE DIAGNOSIS: SUBSTERNAL MULTINODULAR GOITER POSTOPERATIVE DIAGNOSIS: SAME PROCEDURE: Procedure(s) (LRB): THYROIDECTOMY, INCL. SUBSTERNAL, CERVICAL APPROACH (WRVU 17.62) (Bilateral) FACIAL NERVE MONITORING, SETUP LARYNGEAL (WRVU 1.57) (N/A) ULTRASONIC GUIDANCE, INTRAOP (WRVU 1.2) (N/A) ANESTHESIA: General FLUIDS: see anesthesia record ESTIMATED BLOOD LOSS: 50 mL URINE OUTPUT: Not recorded DRAINS: None INDICATIONS FOR PROCEDURE: Radha Masterson was referred for treatment of a large substernal thyroid goiter with multiple nodules. Given her larger size, biopsy was unsuccessful. She was having significant breathing and swallowing issues. After seeing both pulmonology and cardiology, it was thought that some of her issues were due to there thyroid. I recommended the patient undergo total thyroidectomy. We discussed the risks, benefits, and alternatives of surgery including injury to the recurrent laryngeal nerves (voice), injury to the parathyroids (blood calcium control), damage to critical neck structures such as the trachea or esophagus, in addition to a small risk of neck hematoma or infection. After a thorough discussion the patient chose to proceed with surgery and gave informed consent. OPERATIVE FINDINGS: At surgery, we found a large partially substernal goiter, with multiple nodules, left side > right side. The right upper and left lower parathyroids were devascularized and reimplanted in two pockets in the right SCM. The right lower parathyroid was seen and preserved on a vascular pedicle. The left upper parathyroid was not definitively seen. No parathyroids were seen on the specimens. Both recurrent laryngeal nerves(RLN) were identified and preserved. The nerve monitor confirmed positive signals on both RLN nerves and both Vagus nerves at the end of the case. There were no immediate complications. DESCRIPTION OF PROCEDURE: The patient was brought to the operating room and placed on the operating room table in a supine position. As general anesthesia was induced, the patient was intubated with the help of a Video Scope toconfirm the proper positioning of the NIM electrodes between the cords. Once this was done, the tubewas secured and the patient was repositioned with the neck extended and arms tucked, taking care to pad and support all pressure points appropriately. We performed an ultrasound to confirm the thyroid pathology, evaluate the cervical lymph nodes, and aid in selecting an incision site. The thyroid appeared large, partially substernal, with multiple nodules. There was no abnormal lymphadenopathy. We selected a neck crease overlying the isthmus of the thyroid. Next, the neck was prepped and draped in the usual sterile fashion. Antibiotics were given. At this point a complete time-out was conducted. We began by making an 8 cm incision through the selected neck crease. Dissection was carried down through the fat and subcutaneous tissue using Bovie electrocautery. We divided the platysma muscle the full horizontal length of the incision, and then raised superior and inferior subplatysmal flaps witha combination of blunt and cautery dissection. We then divided the strap muscles along the median raphe to adequately expose the thyroid. We began the thyroidectomy on the right side. We mobilized the sternohyoid and sternothyroid muscleslaterally to expose the thyroid using a combination of blunt dissection and cautery. When we later turned to the contralateral side, this same maneuver was performed. The thyroid was bluntly swept awayfrom the carotid sheath and the middle thyroid vein was taken with Harmonic and/or silk ties where appropriate. At this point, we tested the NIM device on the Vagus nerve to ensure that our circuit wascomplete. We then went back to midline and transected the isthmus using Harmonic, careful not to transect through any possible nodules. The isthmus and surrounding attachments were taken partly off thetrachea using a combination of bipolar and monopolar cautery. We then grasped the lower pole and dissected free the anterior attachments and vessels, taking them again with Harmonic and/or silk ties where appropriate. We identified and preserved the lower parathyroid on a vascularized pedicle. We thenturned our attention to the upper pole and dissected out the avascular planes between both the upperpole vessels and the cricothyroid muscle as well as the lateral areolar attachments. The upper pole was grasped with a Sallie clamp and retracted inferolaterally. We began taking all of the upper pole attachments using a combination off Harmonic and/or silk ties. The upper parathyroid was devascularized and set aside for reimplantation. Next, we retracted the thyroid medially, exposing the tracheoesophageal groove in order to identify the recurrent laryngeal nerve. We traced the nerve all the way to its insertion, taking the overlyingattachments and ligament of Booker using a combination of clips, bipolar, as well as clamps and ties where appropriate. No monopolar cautery dissection was performed in the area overlying the nerve. TheNIM device was used intermittently to make sure the nerve had a good signal. The remainder of the thyroid lobe was taken off the trachea using the Bovie and Bipolar. At this point, the specimen was removed and then oriented with a stitch in the lower pole and sent for permanent to pathology. The lobe w as inspected and no parathyroid tissue was seen on the specimen. We then turned our attention to the contralateral side and dissection was completed in a similar manner. We used blunt dissect to free up the substernal component and deliver through the incision. The left lower parathyroid was devascularized. The left upper parathyroid was not definitively identified. There were no issues with the recurrent laryngeal nerve on this side. The NIM device confirmed a complete circuit on entrance and exit testing of the vagus nerve as was done on the initial side. Once the thyroid was excised, I inspected it. No parathyroid tissue was apparent on the surface of the gland. We placed a stitch in the upper pole to orient the thyroid for pathology, and it was sent for permanent evaluation. Lastly, we turned our attention to achieving hemostasis with clips, silk ties, bipolar, Harmonic, orBovie where appropriate. We irrigated the wound and anesthesia performed a Valsalva maneuver to provoke any bleeding. No further bleeding points were identified. We then packed the neck with small pieces of Surgicel SNOW on each side and began closing the incision. The straps were reapproximated with interrupted 3-0 Vicryl stitches, leaving the bottom portion openfor drainage, but adequately covering the trachea to prevent scarring of the superficial tissues to it. We created two pockets in the left sternocleidomastoid and minced of the parathyroids and placed in each pocket. We marked with silk stitch and small clip. We injected approximately 20 mL of 0.25% Marcaine into the corners of the incision. The platysma wasclosed with buried interrupted stitches of 4-0 Vicryl. The skin was closed with buried deep dermal stitches of undyed 4-0 Vicryl. A 5-0 subcuticular Prolene stitch was ran to approximate the skin edges. The wound was cleaned, dried, and Dermabond applied along the length of the incision. Steri strips were placed over the Dermabond as it dried. Once the Dermabond was dry, the Prolene stitch was removed. At the conclusion of the case, all sponge, needle, and instrument counts were correct. There were nocomplications. SURGICAL CLOSURE: Primary Closure - skin incision is completely closed without any wires, aaliyah, drains or other devices. SPECIMENS REMOVED: Order Name Source Comment Collection Info Order Time SPECIMEN TO PATHOLOGY Stitch pompa lower pole. Multinodular goiter Right thyroid lobe. Stitch pompa lower pole. excision No 03/03/2021 10:00 AM Time specimen removed from patient: 9:55 AM Number of tissue samples (in container) Multiple SPECIMEN TO PATHOLOGY Stitch pompa upper pole. Multinodular goiter Left thyroid lobe. Stitch pompa upper pole. excision No 03/03/2021 10:53 AM Time specimen removed from patient: 10:47 AM Number of tissue samples (in container) 1 DISPOSITION: Awakened from anesthesia, extubated, and taken to the recovery room in a stable condition, having suffered no apparent untoward event. CONDITION: Doing well, without problems. INFECTION BUNDLE USED? N/A documented in this encounter Plan of Treatment [...] google or use a book such as [employer] (available on [employer]) OR [employer] (if you're using a package, it will have calorie and protein info on the back) - The other thing to write down would be grams of protein - 1500 is a good starting point for a ca jeffrey goal documented as of this encounter Procedures Procedure Name Priority Date/Time Associated Diagnosis Comme nts POCT GLUCOSE Routine 03/04/2021 8:26 AM Results f or this EDT procedure are i n the results section. POCT GLUCOSE Routine 03/04/2021 3:46 AM Results f or this EDT procedure are i n the results section. HC VENIPUNCTURE Routine 03/04/2021 3:37 AM Result s for this EDT procedure are i n the results section. POCT GLUCOSE Routine 03/03/2021 11:59 Results for this PM EDT procedure are i n the results section. POCT GLUCOSE Routine 03/03/2021 8:02 PM Results f or this EDT procedure are i n the results section. POCT GLUCOSE Routine 03/03/2021 3:59 PM Results f or this EDT procedure are i n the results section. HC PARATHYROID Routine 03/03/2021 12:46 Results f or this HORMONE(PTH INTACT PM EDT procedure are in the results section. POCT GLUCOSE Routine 03/03/2021 12:37 Results for this PM EDT procedure are i n the results section. SPECIMEN TO PATHOLOGY Routine 03/03/2021 10:53 Re sults for this AM EDT procedure are i n the results section. SPECIMEN TO PATHOLOGY Routine 03/03/2021 10:00 Re sults for this AM EDT procedure are i n the results section. SURGICAL PATHOLOGY Routine 03/03/2021 9:55 AM Res ults for this REPORT EDT procedure are i n the results section. BLOOD GAS 2 ARTERIAL Routine 03/03/2021 8:34 AM R esults for this EDT procedure are i n the results section. ULTRASONIC GUIDANCE, 03/03/2021 7:44 AM MULTINODULAR G OITER INTRAOP (WRVU 1.2) EDT FACIAL NERVE 03/03/2021 7:44 AM MULTINODULAR GOITER MONITORING, SETUP EDT LARYNGEAL (WRVU 1.57) THYROIDECTOMY, INCL. 03/03/2021 7:44 AM MULTINODULAR G OITER SUBSTERNAL, CERVICAL EDT APPROACH (WRVU 17.62) POCT GLUCOSE Routine 03/03/2021 7:27 AM Results f or this EDT procedure are i n the results section. documented in this encounter Results POCT Glucose (03/04/2021 8:26 AM EDT) P athologist Signature POC Glucose 111 65 - 199 [facility] mg/dL [facility] Comment: Supplemental ranges: <140 mg/dL before meals <180 mg/dL all other times of the day Specimen Anatomical Collection Method Collection Time Receive d Time (Source) Location / / Volume Laterality Blood 03/04/2021 8:26 AM 1 8:26 EDT AM EDT Lisa Singh MD POINT OF CARE TEST ORDERABLE S Performing Organization Address City/State/ZIP [place] [address] POCT Glucose (03/04/2021 3:46 AM EDT) P athologist Signature POC Glucose 126 65 - 199 [place] mg/dL [facility] Comment: Supplemental ranges: <140 mg/dL before meals <180 mg/dL all other times of the day Specimen Anatomical Collection Method Collection Time Receive d Time (Source) Location / / Volume Laterality Blood 03/04/2021 3:46 AM 1 3:46 EDT AM EDT Lisa Singh MD POINT OF CARE TEST ORDERABLE S Performing Organization Address City/State/ZIP [place] [address] (ABNORMAL) Calcium (03/04/2021 3:37 AM EDT) athologist Signature Calcium 7.6 (L) 8.5 - 10.5 [facility] mg/dL [facility] Specimen Anatomical Collection Method Collection Time Receive d Time (Source) Location / / Volume Laterality Blood 03/04/2021 3:37 AM 1 4:04 EDT AM EDT Resulting Agency Comment Spec In Lab Lisa Singh MD CHEMISTRY ORDERABLES Performing Organization Address City/State/ZIP [place] [address] POCT Glucose (03/03/2021 11:59 PM EDT) athologist Signature POC Glucose 147 65 - 199 [place] mg/dL [facility] Comment: Supplemental ranges: <140 mg/dL before meals <180 mg/dL all other times of the day Specimen Anatomical Collection Method Collection Time Receive d Time (Source) Location / / Volume Laterality Blood 03/03/2021 11:59 03/03/2021 PM EDT 11:59 PM EDT Lisa Singh MD POINT OF CARE TEST ORDERABLE S Performing Organization Address City/State/ZIP [place] [address] POCT Glucose (03/03/2021 8:02 PM EDT) athologist Signature POC Glucose 137 65 - 199 [place] mg/dL [facility] Comment: Supplemental ranges: <140 mg/dL before meals <180 mg/dL all other times of the day Specimen Anatomical Collection Method Collection Time Receive d Time (Source) Location / / Volume Laterality Blood 03/03/2021 8:02 PM 8:02 EDT PM EDT Lisa Singh MD POINT OF CARE TEST ORDERABLE S Performing Organization Address City/[facility]/ZIP [place] [address] POCT Glucose (03/03/2021 3:59 PM EDT) athologist Signature POC Glucose 120 65 - 199 [place] mg/dL [facility] Comment: Supplemental ranges: <140 mg/dL before meals <180 mg/dL all other times of the day Specimen Anatomical Collection Method Collection Time Receive d Time (Source) Location / / Volume Laterality Blood 03/03/2021 3:59 PM 3:59 EDT PM EDT Lisa Singh MD POINT OF CARE TEST ORDERABLE S Performing Organization Address City/State/ZIP [place] [address] (ABNORMAL) PTH (03/03/2021 12:46 PM EDT) athologist Signature PTH 8 (L) 15 - 65 [place] pg/mL [facility] Specimen Anatomical Collection Method Collection Time Receive d Time (Source) Location / / Volume Laterality Blood 03/03/2021 12:46 03/03/2021 1:04 PM EDT PM EDT Resulting Agency Comment Spec In Lab Lisa Singh MD CHEMISTRY ORDERABLES Performing Organization Address City/State/ZIP Code Phon e Number [address] POCT Glucose (03/03/2021 12:37 PM EDT) P athologist Signature POC Glucose 116 65 - 199 [facility] mg/dL [facility] Comment: Supplemental ranges: <140 mg/dL before meals <180 mg/dL all other times of the day Specimen Anatomical Collection Method Collection Time Receive d Time (Source) Location / / Volume Laterality Blood 03/03/2021 12:37 03/03/2021 PM EDT 12:37 PM EDT Lisa Singh MD POINT OF CARE TEST ORDERABLE S Performing Organization Address City/State/ZIP [place] [address] Specimen to Pathology (03/03/2021 10:53 AM EDT) Specimen Anatomical Collection Method Collection Time Receive d Time (Source) Location / / Volume Laterality AP Specimen 03/03/2021 10:53 03/03/2021 AM EDT 10:53 AM EDT Narrative [facility] OR - 03/03/2021 10:53 AM EDT Specimen requisition ordered. ??Separate Pathology report to follow Lisa Singh MD PATHOLOGY/CYTOLOGY ORDERABLE S Performing Organization Address City/State/ZIP [place] [address] Specimen to Pathology (03/03/2021 10:00 AM EDT) Specimen Anatomical Collection Method Collection Time Receive d Time (Source) Location / / Volume Laterality AP Specimen 03/03/2021 10:00 03/03/2021 AM EDT 10:00 AM EDT Narrative [facility] - 03/03/2021 10:00 AM EDT Specimen requisition ordered. ??Separate Pathology report to follow Lisa Singh MD PATHOLOGY/CYTOLOGY ORDERABLE S Performing Organization Address City/State/ZIP [place] [address] Surgical Pathology Report (03/03/2021 9:55 AM EDT) Component Value Ref Test Analysis Performed At [facility] Range Method Time Signature Surgical [id number] ? Location: [facility]; [facility]; A [facility] Pathology [place] Report The signing pathologist has (i) examined the relevant preparation(s) for the [facility] specimen(s) and (ii) rendered or confirmed the diagnosis(es) . HOSPITAL LABORATORY . ?Surgic al Pathology DIAGNOSIS A) Right thyroid lobe, excision: - Multiple adenomatous nodules (up to 1.9 cm) B) Left thyroid lobe, excision: - Multiple adenomatous nodules (up to 3.2 cm) Electronically signed by: ?MD Nina, Dennis Scherer Verified: ??03/06/2021 11:03 ??Pathologist Performed at: ??-[facility] [place] Dept. of [place]ology, [place], [place] SPECIMEN(S) SUBMITTED A - Right thyroid lobe. ??Stitch pompa lower pole., excision (Multiple) B - Left thyroid lobe. ??Stitch pompa upper pole., excision (1) CLINICAL INFORMATION Multinodular goiter SPECIMEN PROCESSING A - Labeled/Fixative: Right thyroid lobe stitch pompa lower pole, fresh. Quantity/Size/Weight: Single, 7.5 x 4.5 x 4.2 cm, 44 g. SPECIMEN DESCRIPTION: Resection Specimen: Disrupted, lobectomy, consisting of ri ght thyroid lobe. External Surface: Henson-brown nodular encased in fibrous tissu e. Parenchyma: Parenchyma has b een overtaken by diffuse nodular formations ranging in size from 0.2-1.9 cm in diameter. Focal hemorrhage. Inking: The thyroid capsule is inked black. The isthmic margin is inked blue. Integration Director sections in 8 cassettes as follows: ?A1-A8: ??Integration Director sections submitted superior to inferior B - Labeled/Fixative: Left thyroid lobe stitch pompa upper p ole, fresh. Quantity/Size/Weight: Single, 7.2 x 4.6 x 3.3 cm, 75 g. SPECIMEN DESCRIPTION: Resection Specimen: Intact, ermias-thyroidectomy, consisting of left thyroid lobe, isthmus. External Surface: Henson-brown grossly enla rged and nodular with two pedunculated growths measuring 2.2 and 1.5 cm in diameter. Parenchyma: Parenchyma is ov ertaken by diffuse nodular growths ranging in size on 0.5 cm in diameter to 3.2 cm in diameter wi th focal hemorrhage and calcification. Inking: The thyroid capsule is inked black. The isthmic margin is inked blue. Integration Director sections in 8 cassettes as follows: ?B1-B8: ??Integration Director sections submitted superior to inferior. ??BAA SNS Specimen (Source) Anatomical Collection Method Collection Time Re ceived Time Location / / Volume Laterality 03/03/2021 9:55 AM EDT Lisa Singh MD PATHOLOGY/CYTOLOGY ORDERABLE S Performing Organization Address City/State/[place] [address] (ABNORMAL) BLOOD GAS 2 ARTERIAL (03/03/2021 8:34 AM EDT) Analysis Performed At Patho logist Time Signature pH Art 7.39 7.35 - [facility] 7.45 [facility] pCO2 Art 44 35 - 45 [facility] mmHg [facility] pO2 Art 88 85 - 104 [facility]ORY HCO3 Art 26.3 (H) 20.0 - [facility] 26.0 [facility] mmol/L [facility] BE Art 1.4 -3.0 - 3.0 [facility] mmol/L [facility] Hgb Blood Gas 13.4 11.7 - [facility] 15.5 gm/dL [facility] O2HB Art 95.4 94.0 - [facility] 97.0 % [facility] COHB Art 0.9 % [facility] Comment: Nonsmokers: 0.5-1.5% COHB Smokers: Variable, but usually less than 10% Toxic: 20-30% COHB Lethal: Greater than 60% COHB METHB Art 0.3 <=1.5 % [facility] Na Whole Blood 136 135 - 145 mmol/L [facility] K Whole Blood 4.1 3.5 - 5.0 mmol/L [facility] Comment: Please note: Patients with WBC >100,000 may have falsely elevated Potassium levels. Contact the Clinical Chemistry L aboratory if there are any questions. ICa Whole Blood 1.12 (L) 1.15 - 1.33 mmol/L [facility] Comment: Note: ??Total bilirubin higher than 20 m g/dL may lead to falsely low ionized calcium. CL Whole Blood 106 98 - 107 mmol/L [facility] Gluc Whole Bld 110 65 - 199 mg/dL [facility] Comment: Diabetes: >=200 mg/dL plus symp toms. Lactate WB 1.6 0.5 - 2.2 mmol/L [facility] Specimen Anatomical Collection Method Collection Time Receive d Time (Source) Location / / Volume Laterality Blood 03/03/2021 8:34 AM 8:34 EDT AM EDT Lisa Singh MD CHEMISTRY ORDERABLES Performing Organization Address City/State/ZIP [place] [address] POCT Glucose (03/03/2021 7:27 AM EDT) P athologist Signature POC Glucose 103 65 - 199 [facility] mg/dL [facility] Comment: Supplemental ranges: <140 mg/dL before meals <180 mg/dL all other times of the day Specimen Anatomical Collection Method Collection Time Receive d Time (Source) Location / / Volume Laterality Blood 03/03/2021 7:27 AM 7:27 EDT AM EDT Lisa Singh MD POINT OF CARE TEST ORDERABLE S Performing Organization Address City/State/ZIP [place] [address] documented in this encounter Visit Diagnoses Diagnosis Multinodular thyroid Nontoxic multinodular goiter documented in this encounter Admitting Diagnoses Diagnosis Multinodular thyroid Nontoxic multinodular goiter documented in this encounter Administered Medications Inactive Administered Medications - up to 3 most recent administrations Medication Order MAR Action Action Date Dose Rate Site acetaminophen (Tylenol) tablet Given 03/04/2021 5:13 AM EDT 1,00 0 mg 1,000 mg 1,000 mg, Oral, EVERY 6 HOURS SCHEDULED, First dose on Tue03/03/21 at 1300, Until Discontinued, Maximum dose of acetaminophen is 4000 mg from all sources in 24 hours. When ordered for pain, acetaminophen should be given even when other ordered pain medications are indicated., Routine Given 03/03/2021 9:17 PM EDT 1,000 mg busPIRone (Buspar) tablet 10 mg Given 03/03/2021 9:14 PM EDT 10 mg 10 mg, Oral, 3 TIMES DAILY, First dose on Tue03/03/21 at 2100, Until Discontinued, Routine calciTRIoL (Rocaltrol) capsule 0.25 mcg Given 03/04/2021 9:43 AM EDT 0.25 mcg 0.25 mcg, Oral, 2 TIMES DAILY, First dose on Tue03/04/21 at 0915, Until Discontinued, Routine calcium carbonate (Tums) chewable tablet Given 03/04/2021 9:43 A M EDT 1,000 mg 1,000 mg 1,000 mg, Oral, 3 TIMES DAILY, First dose on Tue03/03/21 at 2100, Until Discontinued, Routine Given 03/03/2021 9:14 PM EDT 1,000 mg calcium carbonate (Tums) chewable tablet Given 03/04/2021 9:15 A M EDT 4,000 mg 4,000 mg 4,000 mg, Oral, ONCE, 1 dose, On Tue03/04/21 at 0915, Routine dextrose 10% infusion 250 mL, at 1,000 mL/hr, Intravenous, FIDENCIO RY 30 MIN PRN, Starting on Tue03/03/21 at 1231, Until Tue03/04/21 at 1428, For BG 50-70 mg/dL: Oral treatment preferred:?? If able to drink, give 120 mL Juice or R egular (not diet) soda OR If NPO, give 15 gram glucose 40% oral gel massaged into buccal mucosa OR if unconscious or uncooperative, give 25 gram (250 mL) Dex trose 10% IV over 15 minutes per protocol OR, if no IV access, 1 mg Glucagon IM. * * For BG less than 50 mg/dL: Oral treatment preferred:?? If able to drink, give 240 mL Juice or Regular (not diet) soda OR If NPO, give 30 gram glucose 40% oral gel m assaged in buccal mucosa OR if unconscious or uncooperative, give 25 gram (250 mL) Dextrose 10% I V over 15 minutes per protocol OR, if no IV access, 1 mg Glucagon IM. Rech ronny BG in 30 minutes. May repeat juice/soda, gel, dextrose or gluc agon once per episode. For persistent hypoglycemia, consider longer-acting treatment for the duration of the active insulin. fluticasone propionate (FLONASE) 50 Given 03/04/2021 9:54 AM EDT 1 spray mcg/actuation nasal spray 1 spray 1 spray, Each Nare, DAILY, First dose on Tue03/03/21 at 1845, Until Discontinued, Routine Given 03/03/2021 9:15 PM EDT 1 spray gabapentin (Neurontin) capsule 100 mg Given 03/03/2021 9:14 PM EDT 100 mg 100 mg, Oral, 2 TIMES DAILY, First dose on Tue03/03/21 at 1900, Until Discontinued, Routine glucagon (Glucagen) (1 mg/mL) injection solution 1 mg 1 mg, Intramuscular, EVERY 30 MIN PRN, S tarting on Tue03/03/21 at 1231, Until Tue03/04/21 at 1428, Low blood sugar, For BG 50-70 mg/d L: Oral treatment preferred:?? If able to drink, give 120 mL Juice or Regular (not diet) soda OR If NPO, give 15 gram glucose 40% oral gel massaged into b uccal mucosa OR if unconscious or uncooperative, give 25 gr am (250 mL) Dextrose 10% IV over 15 minutes per protocol OR, if no IV access, 1 mg G lucagon IM. For BG less than 50 mg/dL: Oral treatment preferred:?? If able to drink, give 240 mL Juice or Regular (not diet) soda OR If NPO, give 30 gram gluco se 40% oral gel massaged in buccal mucosa OR if unconscious or uncooperative, give 25 gram (250 mL) Dextrose 10% IV over 15 minutes per protocol OR, if no IV access, 1 mg Glucago n IM. Recheck BG in 30 minutes. May repeat juice/soda, gel, dex trose or glucagon once per episode. For persistent hypoglycemia, consider longer -acting treatment for the duration of the active insulin., Routine glucose (GLUTOSE) 40% oral geL 15-30 g, Buccal, EVERY 30 MIN PRN, Starting on 02/13 at 1231, Until Tue03/04/21 at 1428, Low blood sugar, For BG 50-70 mg/d L: Oral treatment preferred:?? If able to drink, give 120 mL Juice or Regular (not diet) soda OR If NPO, give 15 gram glucose 40% oral gel massaged into b uccal mucosa OR if unconscious or uncooperative, give 25 gr am (250 mL) Dextrose 10% IV over 15 minutes per protocol OR, if no IV access, 1 mg G lucagon IM. For BG less than 50 mg/dL: Oral treatment preferred:?? If able to drink, give 240 mL Juice or Regular (not diet) soda OR If NPO, give 30 gram gluco se 40% oral gel massaged in buccal mucosa OR if unconscious or uncooperative, give 25 gram (250 mL) Dextrose 10% IV over 15 minutes per protocol OR, if no IV access, 1 mg Glucago n IM. Recheck BG in 30 minutes. May repeat juice/soda, gel, dex trose or glucagon once per episode. For persistent hypoglycemia, consider longer -acting treatment for the duration of the active insulin. 1 tube contains 15 grams of glucose (n et weight of tube = 37.5 grams., Routine heparin (porcine) (5,000 units/1 mL) Given 03/03/2021 12:35 PM E DT 5,000 Units subcutaneous injection 5,000 Units 5,000 Units, Subcutaneous, ONCE, 1 dose, On Tue03/03/21 at 1245, Routine insulin lispro (HumaLOG;Admelog) (100 unit/mL) subcuta neous injection vial 1-4 Units 1-4 Units, Subcutaneous, EVERY 4 HOURS SCHEDULED, Firs t dose on Tue03/03/21 at 1300, Until Discontinued, CORRECTION B OLUS [1-4 Units] Sensitive Sliding Scale (BG in mg/dL): Correction factor 40 (1 unit of insulin is expected to drop the glucose 40 mg/dL) BG 160 - 200 Give 1 un it BG 201 - 240 Give 2 units BG 241 - 280 Give 3 units BG greater than 280, give 4 units and rec heck BG in 2 hours. - If recheck BG is LESS than 280, give no ins ulin and resume schedule - If recheck BG is GREATER than 280, give 4 units and repea t BG in 2 hours (no more than 3 times) & call for new insulin orders. DO NOT hold if NPO, unless specifically directed to do so by written order. Per Blood Glucose M onitoring Policy, re-check a BG of > 240 mg/dL in 2 hours., Routine levothyroxine (Synthroid) tablet 250 mcg Given 03/04/2021 9:43 AM EDT 250 mcg 250 mcg, Oral, DAILY, First dose on Tue03/04/21 at 0900, Until Discontinued, Routine magnesium oxide (Mag-Ox) tablet 400 mg Given 03/04/2021 9:43 AM EDT 400 mg 400 mg, Oral, 2 TIMES DAILY, First dose on Tue03/04/21 at 0900, Until Discontinued, Routine montelukast (Singulair) tablet 10 mg Given 03/03/2021 9:14 PM EDT 10 mg 10 mg, Oral, NIGHTLY, First dose on Tue03/03/21 at 2100, Until Discontinued, Routine ondansetron (pf) (Zofran) (2 mg/mL) inje ction 4 mg 4 mg, Intravenous, EVERY 8 HOURS PRN, St arting on Tue03/03/21 at 1751, Until Tue03/04/21 at 1428, Nausea, May repeat time s one in 30 minutes if ineffective. If multiple antiemetics are ordered, use ondansetron firs t, Recovery (Recovery-Hospital Unit) ondansetron (Zofran) tablet 4 mg 4 mg, Oral, EVERY 8 HOURS PRN, Starting on Tue03/03/21 at 1751, Until Tue03/04/21 at 1428, Nausea, Vomiting, If multipl e antiemetics are ordered, use ondansetron first. PO Preferred. If patient unable to take PO, may give IV if ordered. May repeat times one in 45 minutes if ineffe ctive., Recovery (Recovery-Hospital Unit), Routine potassium chloride ER (K-Dur/Klor-Con) tablet Given 9:14 PM EDT 20 mEq 20 mEq 20 mEq, Oral, 2 TIMES DAILY, First dose on Tue03/03/21 at 1900, Until Discontinued, 20 mEq tablet may be dissolved in water for administration, Routine senna-docusate (Pericolace) 8.6-50 mg per Given 2020 9:14 PM EDT 2 tablets tablet 2 tablet 2 tablet, Oral, 2 TIMES DAILY, First dose on Tue03/03/21 at 2100, Until Discontinued, Routine sodium chloride 0.9 % (flush) (BD PosiFlush Given 03/04/2021 9:4 5 AM EDT 5 mLs Normal Saline 0.9) flush 5 mL 5 mL, Intravenous, 2 TIMES DAILY, First dose on Tue03/03/21 at 2100, Until Discontinued, Recovery (Recovery-Hospital Unit), Routine Given 03/03/2021 9:17 PM EDT 5 mLs triamcinolone (KENALOG) 0.1 % cream Given 03/04/2021 9:53 AM EDT Topical (Top), 2 TIMES DAILY, First dose on Tue03/03/21 at 2100, Until Discontinued, Application Site: legs Given 03/03/2021 9:15 PM EDT documented in this encounter Active and Recently Administered Medications Times are shown in EDT. Scheduled Medication Order 03/02/2021 03/03/2021 03/04/2021 acetaminophen (Tylenol) tablet 1,000 mg 1300 (Not Given - Provider: Jessica Ghosh RN - Reason: See comment - Comment: Pt had IV dose in [place])2116 (Given - Provider: Tammy Collins RN) 0000 (Not Given - Provider: Tammy hopper RN - Reason: See comment - Comment: Too close to last dose)0513 (Given - Provider: Aime Clay RN)1200 (Due) 1,000 mg, Oral, EVERY 6 HOURS SCHEDULED, First dose on Tue03/03/21 at 1300, Until Discontinued, Maximum dose of acetaminophen is 4000 mg from all sources in 24 hours. When ordered for pain, acetaminophe n should be given even when other ordere d pain medications are indicated., Routine buPROPion (Wellbutrin) tablet 100 mg 200 0 (Not Given - Provider: Tammy Collins RN - Reason: Medication not available) 899 (Not Given - Provider: Mary Masterson RN - Reason: Medication not available - Comment: med not verified) 100 mg, Oral, DAILY, First dose on Tue at 1900, Until Discontinued, Routine busPIRone (Buspar) tablet 10 mg 2113 (Given - Pr ovider: Tammy Collins RN) 899 (Not Given - Provider: Mary Masterson RN - Reason: Patient/family refused) 10 mg, Oral, 3 TIMES DAILY, First dose o n Tue03/03/21 at 2100, Until Discontinued, Routine calciTRIoL (Rocaltrol) capsule 0.25 mcg 942 (Given - Provider: Mary Masterson RN) 0.25 mcg, Oral, 2 TIMES DAILY, First dos e on Tue03/04/21 at 0915, Until Discontinued, Routine calcium carbonate (Tums) chewable tablet 1,000 mg 2113 (Given - Provider: Tammy Collins RN) 942 (Given - Provider: Mary butterfield RN) 1,000 mg, Oral, 3 TIMES DAILY, First dos e on Tue03/03/21 at 2100, Until Discontinued, Routine calcium carbonate (Tums) chewable tablet 4,000 mg (COMPLETED) 914 (Given - Provider: Mary Masterson RN) 4,000 mg, Oral, ONCE, 1 dose, On Tue03/04/21 at 0915, Routine ceFAZolin (Ancef) 3 g in dextrose 5% 109 mL infusion (COMPLE CLAUDIA) 839 (Given - Provider: Nathan Barr DO) 3 g, Intravenous, ICT DEVELOPER TO O.R., 1 dos e, On Tue03/03/21 at 0745, Administer over 30 Minutes, Indication for (Active or Suspected): Prophylaxis citalopram (CeleXA) tablet 20 mg 899 (Not Given - Provider: Mary Masterson RN - Reason: Patient/family refused) 20 mg, Oral, DAILY, First dose on Tue at 0900, Until Discontinued, Routine fluticasone propionate (FLONASE) 50 mcg/actuation nasal spra y 1 spray 2114 (Given - Provider: Tammy Collins RN) 0954 (Given - Provider: Mary Masterson, RN) 1 spray, Each Nare, DAILY, First dose on Tue03/03/21 at 1845, Until Discontinued, Routine furosemide (Lasix) tablet 80 mg 0900 (Not Given - Provider: Mary Masterson RN - Reason: Patient/family refused) 80 mg, Oral, DAILY, First dose on Tue at 0900, Until Discontinued, Routine gabapentin (Neurontin) capsule 100 mg 21 (Given - Provider: Tammy Collins RN) 0900 (Not Given - Provider: Mary Masterson RN - Reason: Patient/family refused) 100 mg, Oral, 2 TIMES DAILY, First dose on Tue03/03/21 at 1900, Until Discontinued, Routine heparin (porcine) (5,000 units/1 mL) sub cutaneous injection 5,000 Units (COMPLETED) 1235 (Given - Provider: Kaya Ghosh RN - Comment: Given now as it was not given in the OR) 5,000 Units, Subcutaneous, ONCE, 1 dose, On Tue03/03/21 at 1245, Routine insulin lispro (HumaLOG;Admelog) (100 un it/mL) subcutaneous injection vial 1-4 Units(Linked Group 1) 1300 (Not Given - Provider: Jessica Ghosh RN - Reason: Order parameters not met - Comment: POC glucose 116)1600 (Not Given - Provider: Jessica Ghosh RN - Reason: Order parameters not met - Comment: POC glucose 120) 0017 (Not Given - Provider: Tammy hopper RN - Reason: Order parameters not met - Comment: BG 147)0400 (Not Given - Provider: Aime Clay RN - Reason: Order parameters not met) 1-4 Units, Subcutaneous, EVERY 4 HOURS S CHEDULED, First dose on Tue03/03/21 at 1300, Until Discontinued, CORRECTION BOLUS [1-4 Units] Sensitive Sliding Scale (BG in mg/dL): Correction factor 40 (1 u 2000 (N ot Given - Provider: Tammy Collins RN - Reason: Order parameters not met - Comment: BG 137) 0800 (Not Given - Provider: Leyda Muro LPN - Reason: Order parameters not met)1200 (Due) nit of insulin is expected to drop the g lucose 40 mg/dL) BG 160 - 200 Give 1 unit BG 201 - 240 Give 2 units BG 241 - 280 Give 3 units BG greater than 280, give 4 units and recheck BG in 2 hours. - If re check BG is LESS than 280, give no insul in and resume schedule - If recheck BG is GREATER than 280, give 4 units and repeat BG in 2 hours (no more than 3 times) & call for new insulin orders. DO NOT hold if NPO, unless specifically direct ed to do so by written order. Per Blood Glucose Monitoring Policy, re-check a BG of > 240 mg/dL in 2 hours., Routine levothyroxine (Synthroid) tablet 250 mcg 942 (Given - Provider: Mary Masterson RN) 250 mcg, Oral, DAILY, First dose on Tue03/04/21 at 0900, Until Discontinued, Routine magnesium oxide (Mag-Ox) tablet 400 mg 942 (Given - Provider: Mary Masterson RN) 400 mg, Oral, 2 TIMES DAILY, First dose on Tue03/04/21 at 0900, Until Discontinued, Routine montelukast (Singulair) tablet 10 mg (Given - Provider: Tammy Collins RN) 10 mg, Oral, NIGHTLY, First dose on Tue03/03/21 at 2100, Until Discontinued, Routine potassium chloride ER (K-Dur/Klor-Con) tablet 20 mEq 2113 (Given - Provider: Tammy Collins RN) 0900 (Not Given - Provider: Mary Masterson RN - Reason: Patient/family refused) 20 mEq, Oral, 2 TIMES DAILY, First dose on Tue03/03/21 at 1900, Until Discontinued, 20 mEq tablet may be dissolved in water for administration, Routine senna-docusate (Pericolace) 8.6-50 mg per tablet 2 tablet 2113 (Given - Provider: Tammy Collins RN) 0900 (Not Given - Provider: Mary Masterson RN - Reason: Patient/family refused) 2 tablet, Oral, 2 TIMES DAILY, First dos e on Tue03/03/21 at 2100, Until Discontinued, Routine sodium chloride 0.9 % (flush) (BD PosiFlush Normal Saline 0. 9) flush 5 mL 2116 (Given - Provider: Tammy Collins RN) 0945 (Given - Provider: Mary Masterson RN) 5 mL, Intravenous, 2 TIMES DAILY, First dose on Tue03/03/21 at 2100, Until Discontinued, Recovery (Recovery-Hospital Unit), Routine spironolactone (Aldactone) tablet 25 mg 0900 (Not Given - Provider: Mary Masterson RN - Reason: Patient/family refused) 25 mg, Oral, DAILY, First dose on Tue at 0900, Until Discontinued, DO NOT SPLIT, CRUSH OR OPEN, Routine triamcinolone (KENALOG) 0.1 % cream 2114 (Given - Provider: Tammy Collins RN) 0953 (Given - Provider: Mary butterfield RN) Topical (Top), 2 TIMES DAILY, First dose on Tue03/03/21 at 2100, Until Discontinued, Application Site: legs Continuous Medication Order 03/02/2021 03/03/2021 03/04/2021 lactated ringers infusion (CANCELED) 074 2 (New Bag - Provider: Nathan Barr DO)0920 (Anesthesia Volume Adjustment - Provider: Nathan Barr DO)1158 (Anesthesia Volume Adjustment - Provider: Nathan Barr DO) 1,000 mL, at 100 mL/hr, Intravenous, CON TINUOUS, Starting on Tue03/03/21 at 0730, Until Tue03/03/21 at 1436, Day of Surgery (Day of Procedure) PRN Medication Order 03/02/2021 03/03/2021 03/04/2021 albuteroL (PROVENTIL) nebulizer solution 2.5 mg 2.5 mg, Nebulization, EVERY 4 HOURS PRN, Starting on Tue03/03/21 at 1751, Until Tue03/04/21 at 1428, Wheezing, Shortness of Breath, Routine BUpivacaine (pf) (Marcaine) (2.5 mg/mL) 0.25% injection (CAN CELED) 1134 (Given - Provider: Tanika Jensen MD) ONCE PRN, Starting on Tue03/03/21 at 113 4, Until Tue03/04/21 at 1428, Intra- Operative (Intra-Procedure), Routine dextrose 10% infusion(Linked Group 2) 250 mL, at 1,000 mL/hr, Intravenous, FIDENCIO RY 30 MIN PRN, Starting on Tue03/03/21 at 1231, Until Tue03/04/21 at 1428, For BG 50-70 mg/dL: Oral treatment preferred:?? If able to drink, give 120 mL Juice or Regular (not diet) soda OR If NPO, gi ve 15 gram glucose 40% oral gel massaged into buccal mucosa OR if unconscious or uncooperative, give 25 gram (250 mL) Dextrose 10% IV over 15 minutes per protocol OR, if no IV access, 1 mg Glucagon IM. For BG less than 50 mg/dL: Oral treatment preferred:?? If able to drink, give 240 mL Juice or Regular (not diet) soda OR If NPO, give 30 gram glucose 40% oral gel massaged in buccal mucosa OR if unco nscious or uncooperative, give 25 gram (250 mL) Dextrose 10% IV over 15 minutes per protocol OR, if no IV access, 1 mg Glucagon IM. Recheck BG in 30 minutes. Ma y repeat juice/soda, gel, dextrose or gl ucagon once per episode. For persistent hypoglycemia, consider longer-acting treatment for the duration of the active insulin. glucagon (Glucagen) (1 mg/mL) injection solution 1 mg(Linked Tonny up 2) 1 mg, Intramuscular, EVERY 30 MIN PRN, S tarting on Tue03/03/21 at 1231, Until Tue03/04/21 at 1428, Low blood sugar, For BG 50-70 mg/dL: Oral treatment preferred:?? If able to drink, give 120 mL Juice or Regular (not diet) soda OR If NPO, g david 15 gram glucose 40% oral gel massaged into buccal mucosa OR if unconscious or uncooperative, give 25 gram (250 mL) Dextrose 10% IV over 15 minutes per protoco l OR, if no IV access, 1 mg Glucagon IM. For BG less than 50 mg/dL: Oral treatment preferred:?? If able to drink, give 240 mL Juice or Regular (not diet) soda OR If NPO, give 30 gram glucose 40% oral gel massaged in buccal mucosa OR if unc onscious or uncooperative, give 25 gram (250 mL) Dextrose 10% IV over 15 minutes per protocol OR, if no IV access, 1 mg Glucagon IM. Recheck BG in 30 minutes. M ay repeat juice/soda, gel, dextrose or g lucagon once per episode. For persistent hypoglycemia, consider longer-acting treatment for the duration of the active insulin., Routine glucose (GLUTOSE) 40% oral geL(Linked Group 2) 15-30 g, Buccal, EVERY 30 MIN PRN, Start ing on Tue03/03/21 at 1231, Until Tue03/04/21 at 1428, Low blood sugar, For BG 50-70 mg/dL: Oral treatment preferred:?? If able to drink, give 120 mL Juice or Regular (not diet) soda OR If NPO, give 15 gram glucose 40% oral gel massaged into buccal mucosa OR if unconscious or uncooperative, give 25 gram (250 mL) Dextrose 10% IV over 15 minutes per protocol OR , if no IV access, 1 mg Glucagon IM. For BG less than 50 mg/dL: Oral treatment preferred:?? If able to drink, give 240 mL Juice or Regular (not diet) soda OR If NPO, give 30 gram glucose 40% oral gel massaged in buccal mucosa OR if unconsc ious or uncooperative, give 25 gram (250 mL) Dextrose 10% IV over 15 minutes per protocol OR, if no IV access, 1 mg Glucagon IM. Recheck BG in 30 minutes. May r epeat juice/soda, gel, dextrose or gluca blanca once per episode. For persistent hypoglycemia, consider longer-acting treatment for the duration of the active insulin. 1 tube contains 15 grams of glucose (net weight of tube = 37.5 grams., Routine ipratropium-albuteroL (DUONEB) 0.5 mg-3 mg(2.5 mg base)/3 mL nebulizer solution 3 mL 3 mL, Nebulization, 4 TIMES DAILY PRN, S tarting on Tue03/03/21 at 1751, Until Tue03/04/21 at 1428, Wheezing, Routine ketorolac (Toradol) (15 mg/mL) injection 15 mg 15 mg, Intravenous, EVERY 6 HOURS PRN, S tarting on Tue03/03/21 at 1231, Until Tue03/04/21 at 1428, Pain, for Moderate pain 4-6, Avoid if CrCl less than 50 ml/min. Do not administer with other NSAIDS, Routine labetaloL (Normodyne) (5 mg/mL) injection solution 20 mg 20 mg, Intravenous, EVERY 4 HOURS PRN, S tarting on Tue03/03/21 at 1231, Until Tue03/04/21 at 1428, High Blood Pressure, Give if SBP greater than 160 mmHg, hold for HR<70, Routine lidocaine (Xylocaine) 1% (10 mg/mL) injection 3 mg 3 mg (0.3 mL), Subcutaneous, ONCE PRN, 1 dose, Starting on Tue03/03/21 at 1751, Until Tue03/04/21 at 1428, for discomfort with PIV insertion, Recovery (Recovery-Hospital Unit), Routine ondansetron (pf) (Zofran) (2 mg/mL) injection 4 mg(Linked Group 3) 4 mg, Intravenous, EVERY 8 HOURS PRN, St arting on Tue03/03/21 at 1751, Until Tue03/04/21 at 1428, Nausea, May repeat times one in 30 minutes if ineffective. If multiple antiemetics are ordered, use o ndansetron first, Recovery (Recovery-Hospital Unit) ondansetron (Zofran) tablet 4 mg(Linked Group 3) 4 mg, Oral, EVERY 8 HOURS PRN, Starting on Tue03/03/21 at 1751, Until Tue03/04/21 at 1428, Nausea, Vomiting, If multiple antiemetics are ordered, use ondansetron first. PO Preferred. If patient nora ble to take PO, may give IV if ordered. May repeat times one in 45 minutes if ineffective., Recovery (Recovery-Hospital Unit), Routine polyethylene glycoL (Miralax) packet 17 g 17 g, Oral, DAILY PRN, Starting on Tue at 1751, Until Tue03/04/21 at 1428, Constipation, Administer if no bowel movement within 48 hours to achieve: (1) One bowel movement at least every 48 hour s, AND (2) without straining. If multipl e PRN bowel medications ordered, start with polyethylene glycol, then lactulose, then oral bisacodyl, then bisacodyl suppository, then magnesium citrate, then tap water enema. Multiple medications may b e given concomitantly for constipation., Routine sodium chloride 0.9 % (flush) (BD PosiFlush Normal Saline 0.9) f lush 5-20 mL 5-20 mL, Intravenous, EVERY 1 MIN PRN, S tarting on Tue03/03/21 at 1751, Until Tue03/04/21 at 1428, flush, Flush pertains to all indwelling lines. Flush per protocol found in the job aid using the link p rovided on this medication record., Recovery ([facility]), Routine Linked Groups Order Group 1: POCT Fingerstick Glucose (CANCELED) Routine, EVERY 4 HOURS, First occurrence on Tue03/03/21 at 1235, Until Specified
Consider choosing EVERY 4 HOURS as frequency for: - Type 1 Diabetes - At least 24 hours after coming off an insu carlin drip - At least 24 hours after admis gustavo for DKA - Hypoglycemia unawareness - Patients who are otherwise unstable Select the same frequency for the correction bolus insulin order And insulin lispro (HumaLOG;Admelog) (100 unit/mL) subcutaneous injection vial 1-4 UnitsJump to med 1-4 Units, Subcutaneous, EVERY 4 HOURS S CHEDULED, First dose on Tue03/03/21 at 1300, Until Discontinued
CORRECTION BOLUS [1-4 Units] Sensitive Sliding Scale (BG in mg/dL): Correcti on factor 40 (1 unit of insulin is expec claudia to drop the glucose 40 mg/dL) BG 160 - 200 Give 1 unit BG 201 - 240 Give 2 units BG 241 - 280 Give 3 units BG greater than 280, give 4 units and re check BG in 2 hours. - If recheck BG is LESS than 280, give no insulin and resume schedule - If recheck BG is GREATER than 280, give 4 units an d repeat BG in 2 hours (no more than 3 t imes) & call for new insulin orders. DO NOT hold if NPO, unless specifically directed to do so by written order.&am p;nbsp; Per Blood Gluco se Monitoring Policy, re-check a BG of > 240 mg/dL in 2 hours.
Routine Group 2: glucose (GLUTOSE) 40% oral geLJump to med 15-30 g, Buccal, EVERY 30 MIN PRN, Start ing on Tue03/03/21 at 1231, Until Tue03/04/21 at 1428, Low blood sugar
For BG 50-70 mg/dL: Oral treatment preferred:?? If able to drink, give 120 mL J uice or Regular (not diet) soda OR If CLOTH MENDER O, give 15 gram glucose 40% oral gel massaged into buccal mucosa OR if unconscious or uncooperative, give 25 gram (250 mL) Dextrose 10% IV over 15 minutes per pro tocol OR, if no IV access, 1 mg Glucagon IM. For BG less than 50 mg/dL: Oral treatment preferred:?? If able to drink, give 240 mL Juice or Regular (not diet) soda OR If NPO, give 30 gram gl ucose 40% oral gel massaged in buccal mu cosa OR if unconscious or uncooperative, give 25 gram (250 mL) Dextrose 10% IV over 15 minutes per protocol OR, if no IV access, 1 mg Glucagon IM. Rech ronny BG in 30 minutes. May repeat juice/s randee, gel, dextrose or glucagon once per episode. For persistent hypoglycemia, consider longer-acting treatment for the duration of the acti ve insulin. 1 tube contains 15 gram s of glucose (net weight of tube = 37.5 grams.
Routine Or dextrose 10% infusionJump to med 250 mL, at 1,000 mL/hr, Intravenous, FIDENCIO RY 30 MIN PRN, Starting on Tue03/03/21 at 1231, Until Tue03/04/21 at 1428
For BG 50-70 mg/dL: Oral treatment preferred:?? If able to drink, give 120 m L Juice or Regular (not diet) soda OR If NPO, give 15 gram glucose 40% oral gel massaged into buccal mucosa OR if unconscious or uncooperative, give 25 gram (250 mL) Dextrose 10% IV over 15 minutes per protocol OR, if no IV access, 1 mg Gluca blanca IM. For BG less than 50 mg/dL: Oral treatment preferred:?? If able to drink, give 240 mL Juice or Regular (not diet) soda OR If NPO, give 30 gram glucose 40% oral gel massaged in buccal mucosa OR if unconscious or uncooperative, give 25 gram (250 mL) Dextrose 10% IV over 15 minutes per protocol OR, if no IV access, 1 mg Glucagon IM. R echeck BG in 30 minutes. May repeat juic e/soda, gel, dextrose or glucagon once per episode. For persistent hypoglycemia, consider longer-acting treatment for the duration of the active insulin.
Or glucagon (Glucagen) (1 mg/mL) injection solution 1 mgJump to med 1 mg, Intramuscular, EVERY 30 MIN PRN, S tarting on Tue03/03/21 at 1231, Until Tue03/04/21 at 1428, Low blood sugar
For BG 50-70 mg/dL: Oral treatment preferred:?? If able to drink, give 120 mL Juice or Regular (not diet) soda OR I f NPO, give 15 gram glucose 40% oral gel massaged into buccal mucosa OR if unconscious or uncooperative, give 25 gram (250 mL) Dextrose 10% IV over 15 minutes per protocol OR, if no IV access, 1 mg Gluc agon IM. For BG less than 50 mg/dL: Oral treatment preferred:?? If able to drink, give 240 mL Juice or Regular (not diet) soda OR If NPO, give 30 gra m glucose 40% oral gel massaged in bucca l mucosa OR if unconscious or uncooperative, give 25 gram (250 mL) Dextrose 10% IV over 15 minutes per protocol OR, if no IV access, 1 mg Glucagon IM. Recheck BG in 30 minutes. May repeat jui ce/soda, gel, dextrose or glucagon once per episode. For persistent hypoglycemia, consider longer-acting treatment for the duration of the active insulin.
Routine Group 3: ondansetron (Zofran) tablet 4 mgJump to med 4 mg, Oral, EVERY 8 HOURS PRN, Starting on Tue03/03/21 at 1751, Until Tue03/04/21 at 1428, Nausea, Vomiting
If multiple antiemetics are ordered, use ondansetron first. PO Preferr ed. If patient unable to take PO, may gi ve IV if ordered. May repeat times one in 45 minutes if ineffective.
Recovery (Recovery-Hospital Unit), Routine Or ondansetron (pf) (Zofran) (2 mg/mL) injection 4 mgJump to med 4 mg, Intravenous, EVERY 8 HOURS PRN, St arting on Tue03/03/21 at 1751, Until Tue03/04/21 at 1428, Nausea
May repeat times one in 30 minutes if ineffective. If multiple antiemetics a re ordered, use ondansetron first
R ecovery (Recovery-Hospital Unit) documented in this encounter Care Teams [employer]itude Test Grader Relationship Specialty Start Date End Date Alphonso Murphy MD PCP - General Family Medicine 02/[birth year][address] [place] [address] [address] [facility] [address] [place] [address] documented as of this encounter
--- OUTSIDE RECORDS SUMMARY | 2022-03-05 02:15 | XMS_ITS | Encounter Summary ---
:1955 Author Organization [facility] [place] [address] Care Team Providers Name Role Phone Alphonso Murphy MD Primary Care Provider [phone] Reason for Referral Physical Therapy (Routine) - Authorized Specialty Diagnoses / Procedures Referred By Contact Refer red To Contact Physical Therapy Diagnoses S/P total thyroidectomy Lymphedema S/P total thyroidectomy Lisa Singh MD [facility] Pt Rehab Procedures Evaluate and Treat [facility] GENERAL SURGERY [address] [address] Phone: Fax: Referral ID Status Reason Start Expiration Visits Visits Date Date Requested Authorized [id number] Authorized Evaluate and 03/19/2021 03/19/2022 12 12 Treat Encounter Details Date Type Department Care Team Description 03/19/2021 TH Visit General Surgery at Lisa Singh, S/P to guille (TeleHealth) [facility] thyroidectomy [facility] [address] [place] GENERAL SURGERY [id number] [place] [address] [phone] Social History Tobacco Use Types Packs/Day Years Used Date Former Smoker Cigarettes 3 40 Quit: 10/08/19 11 Smokeless Tobacco: Never Used Alcohol Use Standard Drinks/Week Comments No 0 (1 standard drink = 0.6 oz pure alcoho l) Sex Assigned at Date Recorded Not on file documented as of this encounter Patient Instructions Patient InstructionsBakyler, Lisa Irizarry MD - 03/19/2021 5:15 PM EDT [facility] POST-OPERATIVE FOLLOW UP The clinic contact number is [phone]. After your THYROID operation ?? It is normal to have fullness when you swallow and need to clear your throat for the first 6-8 weeks after surgery. ?? It is ok to get your incision wet and cleanse the area. No soaking or swimming for 2 weeks after surgery. ?? It is normal to have swelling around your incision for the first 6-8 weeks after surgery. When will my scar look better? ?? After surgery, a scar may look more red and raised for two to four months. Healing takes one year. ?? The color of your incision will fade over the next year. What can I do to make my scar look better? ?? Studies have shown that the following treatments improve the way most scars look. ??? Scar massage o Once your sutures are removed and the incision is well healed (at least 2 weeks after your operation), you are ready to begin scar massage. o Massage should be done firmly, especially if adhesions are present. These steps should be done 4-6times a day. o Apply lotion (Elta Lite??, Eucerin??, Britt??, Meenu??) over your scar. Lotion will soften your scar and also help to remove old skin and debris. o Rotate two fingers clockwise then counter-clockwise making small circles along the scar. o Pinch the scar up on either side of the scar along its entire length o Gently twist clockwise and counter-clockwise. o Rub two fingers along your scar, pushing each finger in an opposite direction from the other. Thismethod works well, but you may need some help from others. o There are a number of scar reducing creams available that you can try if you like but there is a good chance that they will not help. The moisturizers listed above may work just as well. ??? Limit sun exposure o Apply SPF 30 sunscreen daily for the first year after your operation o Start 2 weeks after your operation ??? Apply a silicone gel sheet o Start 4-6 weeks after your operation. If started too soon after surgery it can impair scar healing. o Wear it as much as possible o Use daily for at least 3 months. May wear up to one year. o Purchase at your local drugstore or purchase online. o Some brands include Cimeosil??, ScarAway??, and Cica-Care??. Activity/Returning to work ?? You may resume all of your normal daily activities, as well as exercise starting 2 weeks after surgery. ?? You may return to work if you haven???t before now. Calcium and constipation Calcium supplements/Tums can cause constipation. If you???ve been constipated since your operation, drink plenty of fluids and eat foods high in fiber. Follow-up ?? You will need to have a TSH (a blood draw) 6 weeks after your surgery to assess the function of your remaining thyroid tissue or to check the dose of your thyroid hormone medication if you take it. Questions ?? If you notice any symptoms of infection (increased redness and/or warmth at the incision, drainage from the incision, temperature greater than 100.4, excess swelling) please call the clinic. Please contact our clinic with any questions or concerns. It was our pleasure meeting with you. Thank You!!! Internet: Stay connected with us on our facebook page [facility] Here???s a link to our website to learn more about endocrine diseases, endocrine surgery, and research being done at [facility]. Visit [email or web address] Another great website is [email or web address] documented in this encounter Progress Notes Lisa Singh MD - 03/19/2021 5:15 PM EDT Thyroidectomy Post-Operative Check Subjective: Ms. Radha Masterson is a very pleasant 65 y.o. year old female s/p total thyroidectomy on 03/03/2021 forMultinodular goiter. At surgery, we found a large partially [...] of the case. There were no immediate complications.. PACU PTH was 8. She was admitted overnight for observation and discharged home POD1. She is overall doing well. She has the following: Pain: Yes, [employer] over incision and still has a sore throat - slightly better Voice changes: No Difficulty swallowing: Yes, slightly improved since pre-surgery. She also reports that her breathingis also improved. Wound concerns: Yes, no erythema/drainage but said she had a baseline sized swelling at the anterior middle part of incision and has gone down to golf ball size but still there. Also reports bruising. Hypopara after surgery and started on 1g tums tid and 0.25 mcg of calcitriol bid. Has been taking 1500mg tums BID (not TID) but still getting the same prescribed amount. Takes calcitriol 0.25 mcg tablets BID. Occasionally taking extra dose of tums if she gets tingling in mouth or fingertips - last time she did that was 5 days ago and she takes 2g when that happens and says it relieves the symptoms. Takes thyroid medicine at 7am with water. On 250 mcg (2x125) - [facility] - asked her to take both tablets together in morning only. Takes tums and calcitriol 9 am. Asked her to take around 10-11am instead. Exam: No acute distress Voice strong and normal Incision: see above Pathology results: DIAGNOSIS A) Right thyroid lobe, excision: ??- Multiple adenomatous nodules (up to 1.9 cm) B) Left thyroid lobe, excision: ??- Multiple adenomatous nodules (up to 3.2 cm) Assessment and Plan: Ms. Radha Masterson is a very pleasant 65 y.o. year old female s/p total thyroidectomy for Multinodulargoiter. She is still having postoperative pain, swelling at the incision, and sore throat. I would like her to come to the clinic to evaluate her wound. She is able to come in tomorrow and my team will call her to confirm. I have asked her to stop at the lab prior and get her calcium and PTH check. I discussed the pathology results with the patient and recommended: Benign - will need a TSH 6 weeks after surgery. I have ordered this lab today and will follow up with the patient regarding the results and make changes if appropriate. Euthyroid Labs to be done here at . We discussed dressing removal and scar care - instructions were provided. documented in this encounter Plan of Treatment Scheduled Referrals Name Type Priority Associated Diagnoses Order S chedule Referral to Outpatient Referral Routine S/P total Ordered: Physical Therapy thyroidectomy 03/19/2021 documented as of this encounter Goals Goal [...] or use a book such as Calorie zappit (available on [employer]) OR Prezacor.backstitch (if you're using a package, it will have calorie and protein info on the back) - The other thing to write down would be grams of protein - 1500 is a good starting point for a ca jeffrey goal documented as of this encounter Results PTH (03/23/2021 10:13 AM EDT) P athologist Signature PTH 31 15 - 65 [place] pg/mL [facility] Specimen Anatomical Collection Method Collection Time Receive d Time (Source) Location / / Volume Laterality Blood 03/23/2021 10:13 03/23/2021 AM EDT 10:21 AM EDT Resulting Agency Comment Spec In Lab Lisa Singh MD CHEMISTRY ORDERABLES Performing Organization Address City/State/[place] [address] Calcium (03/23/2021 10:13 AM EDT) P athologist Signature Calcium 9.0 8.5 - 10.5 [facility] mg/dL [facility] Specimen Anatomical Collection Method Collection Time Receive d Time (Source) Location / / Volume Laterality Blood 03/23/2021 10:13 03/23/2021 AM EDT 10:21 AM EDT Resulting Agency Comment Spec In Lab Lisa Singh MD CHEMISTRY ORDERABLES Performing Organization Address City/State/[place] [address] documented in this encounter Visit Diagnoses Diagnosis S/P total thyroidectomy Other postprocedural status documented in this encounter Care Teams Support Architect Relationship Specialty Start Date End Date Alphonso Murphy MD PCP - General Family Medicine 02/19/[address] [place] [address] documented as of this encounter
--- OUTSIDE RECORDS SUMMARY | 2022-03-05 02:15 | XMS_ITS | Encounter Summary ---
:1955 Author Organization [facility] [place] [address] Care Team Providers Name Role Phone Alphonso Murphy MD Primary Care Provider [phone] Reason for Visit Reason Comments Wound Check Right leg Auth/Cert Specialty Diagnoses / Procedures Referred By Contact Refer red To Contact Diagnoses Cellulitis Procedures EMERGENCY OBSVO Referral ID Status Reason Start Date Expiration Date Visits Requ ested Visits Authorized [id number] 1 1 Encounter Details Date Type Department Care Team Description 04/19/2021 - Emergency Emergency Department Dede Perez MD [facility] [place] [address] Cellulitis (Primary 04/20/2021 Alisa Cooper MD [facility] [place] [address] Dx) [facility] Dionte Ray MD [facility] [place] [address] [place] [address] [place] [address] Social History Tobacco Use Types Packs/Day Years Used Date Former Smoker Cigarettes 3 40 Quit: 10/08/19 11 Smokeless Tobacco: Never Used Alcohol Use Standard Drinks/Week Comments No 0 (1 standard drink = 0.6 oz pure alcoho l) Sex Assigned at Date Recorded Not on file documented as of this encounter Last Filed Vital Signs Vital Sign Reading Time Taken Comments Blood Pressure 135/76 04/20/2021 1:00 PM EDT Pulse 75 04/20/2021 1:00 PM EDT Temperature 36.4 ??C (97.5 ??F) 04/19/2021 4:34 PM EDT Respiratory Rate 16 04/20/2021 1:00 PM EDT Oxygen Saturation 95% 04/20/2021 1:00 PM EDT Inhaled Oxygen Concentration - - Weight - - Height - - Body Mass Index - - documented in this encounter Discharge Instructions Discharge InstructionsMorgan Doll PA - 04/20/2021 11:41 AM EDT You were evaluated emergency department for lower extremity cellulitis. Please keep your leg elevated and take the entire course of antibiotics. Follow-up with your primary care provider for a wound check in the next 2 to 3 days. Return the emergency department sooner for any worsening symptoms or other concerns. AttachmentsThe following attachments cannot be sent through Care Everywhere. Cellulitis ([place])documented in this encounter Medications at Time of [...] metFORMIN (GLUCOPHAGE) Take 1,000 mg by 0 01/15/ 021 1,000 mg Tablet mouth 2 times daily (with meals). furosemide (Lasix) 40 Take 2 tablets by 180 tablet 3 05/20/2 021 mg TabletIndications: mouth daily. Pulmonary hypertension, [...] 06/2019 (FLONASE) 50 route daily as mcg/actuation [place], needed. 04/06 Patient Suspension states that she [...] cephALEXin (Keflex) 500 Take 1 capsule by 40 capsule 0 04/2004/30/2021 mg Capsule mouth 4 times daily for 10 days. levothyroxine Take 2 tablets by 90 tablet 3 03/05/202108/15 (Synthroid) 125 mcg mouth daily. Tablet documented as of this encounter ED Notes Dionte Ray MD - 04/20/2021 12:08 PM EDT CLINICAL DECISION UNIT - ED ATTENDING DAY OF DISCHARGE NOTE Reason for CDU Admission: Soft Tissue Infection Brief Clinical Summary: 65 y.o. female presented to ED with a soft tissue infection on the leg. Evaluation in the ED did not raise concern for a deep space infection, but it was felt that IV antibiotics and observation were necessary to determine if the patient was appropriate for outpatient therapy. A fter IV antibiotic therapy there has been no clinical evidence of progression of the infection after20 hours in observation. The patient's pain is well controlled. Discharge Vital Signs: BP 170/70 Pulse 85 Temp 36.4 ??C (97.5 ??F) (Temporal) Resp 18 SpO2 97% Medical Decision Making: Soft tissue infection on the leg likely representing cellulitis. Deep spaceor other infectious complication was considered and felt to be unlikely. At this point there is no clinical evidence of progression of the infection, and as a result, transition to outpatient management is appropriate. There have been no other active clinical issues identified. I have determined that the patient meets criteria for discharge at this time. The discharge plan was reviewed with the patient, they have had an opportunity to ask questions, and are in agreement with the plan. The patient was seen in conjunction with Morgan Doll. The patient still has cellulitis however it is significantly improved and is withdrawn from the markings which were placed previously. Patient does not have any systemic symptoms of sepsis or systemic bacterial infection. She is not tachycardic tac hypneic or hypotensive. Her vital signs are reassuring her blood work including the white blood cellcount are reassuring. She is well-appearing nontoxic in no acute distress. She is comfortable going home she will resume taking the cephalexin and I did explain to her the importance of taking it regularly and the importance of watching the infection carefully and returning immediately if it is worsening or if she is developing any systemic symptoms whatsoever. She verbalizes agreement with this planand agrees to come back if she develops fevers chills systemic symptoms worsening infection etc. I have asked that she follow-up for recheck tomorrow or the next day which she agrees to do. The patient understands the provisional nature of this diagnosis, and is instructed to follow-up with primary care provider in 1 to 2 days. The patient understands the need to return to the emergency department if worsening in any way or not improving or developing any new symptoms. There have been nobarriers to communication. The patient has verbalized understanding of these strict return precautions and timely follow-up. I have answered the patient's questions to the best of my ability. At time of discharge patient is well-appearing, nontoxic, hemodynamically stable, and in no acute distress. Dionte Ray MD 04/20/21 1210 Morgan Doll PA - 04/20/2021 11:14 AM EDT CLINICAL DECISION UNIT - DISCHARGE SUMMARY Patient Name: Radha Masterson Patient Age: 65 y.o. Birthdate: 1955 Admit date: 04/19/2021 Discharge date and time: 04/20/2021 Attending Physician: Dionte Ray MD Discharge Diagnoses: Cellulitis History of Presentation (from ED Note): Per ED provider note upon initial evaluation: Radha Masterson??is a 65 y.o.??female??morbid obesity,??lymphedema,??venous insufficiency,??PAH,??DAVID on BiPAP,??home oxygen,??who presents to the Emergency Department right lower leg wound pain. She reports the right lower leg is draining more with green-colored drainage as well as more pain for the past couple days. She reports the pain feels like it is going all the way to the bone. She was seen last week in the ED for a similar concern. She completed??of cellulitis abx treatment of home cefazolin last Tuesday.??She was admitted to [facility] 04/05-04/08 for her cellulitis. ?? She reports low-grade fevers to T-max of 99.6F,??some chills last night. She denies new shortness ofbreath, chest pain, dysuria, poor p.o. intake, changes to BMs.?? CDU Course: Patient admitted to the CDU for the cellulitis protocol. Her cellulitis has stayed within the demarcated area. She is overall nontoxic- appearing. She has normal vital signs. She was given 3doses of Ancef while in the CDU. Given her previous response to Ancef we will continue Keflex as an o utpatient and have her follow-up with the wound clinic as scheduled. She was given very close returnprecautions and will come back to the ED for any worsening symptoms or other concerns. Exam at Time of Discharge: BP 170/70 Pulse 85 Temp 36.4 ??C (97.5 ??F) (Temporal) Resp 18 SpO2 97% Constitutional: Morbidly obese Head: Normocephalic and atraumatic. Eyes: EOM are normal. Neck: Normal range of motion. Cardiovascular: Normal rate and regular rhythm. Pulmonary/Chest: Effort normal and breath sounds normal. Musculoskeletal: Exhibits no edema or tenderness. Skin: Right lower extremity cellulitis well within demarcated area. Emergency Department/Clinical Decision Unit Course: -H&P -Labs -Ancef X3 Summary of Important Studies and Lab Data: Recent Results (from the past 24 hour(s)) Basic Metabolic Panel (non-fasting) Result Value Ref Range Glucose Lvl 137 65 - 199 mg/dL BUN 18 8 - 18 mg/dL Creatinine 0.73 0.70 - 1.20 mg/dL Sodium 139 135 - 145 mmol/L Potassium 3.8 3.5 - 5.0 mmol/L Chloride 101 98 - 107 mmol/L CO2 28 22 - 31 mmol/L Anion Gap 10 5 - 15 mmol/L Calcium 8.7 8.5 - 10.5 mg/dL Estimated GFR 87 >=60 mL/min/1.73 m?? Hemogram Result Value Ref Range WBC 9.3 4.0 - 9.5 x10(3)/mcL RBC 5.05 4.00 - 5.21 x10(6)/mcL Hemoglobin 14.4 11.7 - 15.5 gm/dL Hematocrit 42.9 35.7 - 45.8 % MCV 85.0 82.6 - 94.4 fL MCH 28.5 27.1 - 32.0 pg MCHC 33.6 31.7 - 35.0 gm/dL Platelets 282 145 - 357 x10(3)/mcL RDWSD 42.3 37.0 - 46.0 fL RDWCV 13.6 11.5 - 14.1 % MPV 10.7 7.6 - 12.9 fL nRBC % Auto 0.0 % nRBC Abs Auto 0.000 0.000 - 0.000 x10(3)/mcL Differential, Automated Result Value Ref Range Neutrophils % 62.7 % Neutr Abs (ANC) 5.82 1.70 - 6.10 x10(3)/mcL Lymphocytes % 23.9 % Lymphocytes Abs 2.2 0.9 - 3.2 x10(3)/mcL Monocytes % 9.6 % Monocyte Abs 0.9 0.3 - 0.9 x10(3)/mcL Eosinophils % 3.1 % Eosinophils Abs 0.3 0.0 - 0.4 x10(3)/mcL Basophils % 0.4 % Basophils Abs 0.0 0.0 - 0.1 x10(3)/mcL Immature Gran % 0.30 % Surekha Gran Abs 0.03 0.00 - 0.04 x10(3)/mcL COVID-19 PCR Specimen: Nasopharyngeal Swab Symptoms->Surveillance Result Value Ref Range SARS-CoV-2 RNA PCR Not Detected Not Detected SARS-CoV-2 Source CONTACT REPRESENTATIVE Swab Pending Studies and Lab Data: n/a Discharge Condition: stable Discharge to: Home Discharge Medications: Your Medications UNREVIEWED medications - Discuss With Your Provider Dose Details acetaminophen 325 mg Tab Commonly known as: Tylenol Take 2 tablets by mouth every 6 hours as needed for Pain or Fever. 650 mg Quantity: 30 tablet Refills: 1 ALBUTEROL INHL Inhale 2 puffs into the [...] 3 times daily as needed. Refills: 0 ergocalciferoL (vitamin D2) 50,000 unit [...] 2 times daily as needed. Refills: 0 Updated Allergies/ADRs: Allergies Allergen Reactions ??? Red Blood Cells Other (See Comments) Antibodies-Difficult to Crossmatch DO NOT REMOVE Please contact the Blood Bank at [phone] for questions. ??? Iodine And Iodide Containing Products rash ??? Oxycodone Rash ??? Morphine Rash Other reaction(s): PRURITIS Future Appointments and Orders Future Appointments and Orders Future Appointments Provider Department Dept Phone 04/22/2021 2:30 PM Jina Castrejon Vascular Lab at [facility] Arrive at: [facility] [place] [facility] [address] [phone] 04/22/2021 3:15 PM Amy Germain APRN Wound Care at [facility] Arrive at: [facility] [facility] 4M [phone] 07/28/2021 10:30 AM Mike Robles MD Pulmonology at [facility] Arrive at: [address] [place] [address] 5C [phone] General Instructions You were evaluated emergency department for lower extremity cellulitis. Please keep your leg elevated and take the entire course of antibiotics. Follow-up with your primary care provider for a wound check in the next 2 to 3 days. Return the emergency department sooner for any worsening symptoms or other concerns. I have asked Dr. Ray to see this patient today. For questions regarding this document or issues relating to this admission, please contact the Clinical Decision Unit through the [facility] [employer] . Morgan Doll PA 04/20/21 1142 Emily Garcia LPN - 04/20/2021 12:50 AM EDT Wound to right lower extremity dressed per wound care order. Olga Paez PA - 04/19/2021 6:58 PM EDT Images from the original note were not included. CDU ADMIT NOTE Patient: Radha Masterson Age (): 65 y.o. (1955) Admit Date: 04/19/21 Attending Provider: Marion Perez MD SUBJECTIVE CC: R lower leg wound HPI: Per ED provider note upon initial evaluation: Radha Masterson is a 65 y.o. female morbid obesity, lymphedema, venous insufficiency, PAH, DAVID on BiPAP, home oxygen, who presents to the Emergency Departmentright lower leg wound pain. She reports the right lower leg is draining more with green-colored drainage as well as more pain for the past couple days. She reports the pain feels like it is going all the way to the bone. She was seen last week in the ED for a similar concern. She completed of cellulitis abx treatment of home cefazolin last Tuesday. She was admitted to hospital medicine 04/05-04/08 for her cellulitis. ?? She reports low-grade fevers to T-max of 99.6F, some chills last night. She denies new shortness of breath, chest pain, dysuria, poor p.o. intake, changes to BMs. Per reevaluation upon time of admission: Patient currently feels well with minimal pain. PFSH: Past Medical History: Diagnosis Date ??? JODY [...] walker when walks a very short distance Allergies Allergen Reactions ??? Red Blood Cells Other (See Comments) Antibodies-Difficult to Crossmatch DO NOT REMOVE Please contact the Blood Bank at [phone] for questions. ??? Iodine And Iodide Containing Products rash ??? Oxycodone Rash ??? Morphine Rash Other reaction(s): PRURITIS Past Surgical History: Procedure Laterality Date ??? [...] 1.57) performed by Lisa Singh MD at [facility] MA[facility] OR ??? PRG US GUIDE INTRAOP N/A 03/03/2021 ULTRASONIC GUIDANCE, INTRAOP (WRVU 1.2) performed by Lisa Singh MD at [facility] MAIN OR ??? PRO THYROIDECTOMY=SUBSTERNAL, TRANSCERV Bilateral 03/03/2021 THYROIDECTOMY, INCL. SUBSTERNAL, CERVICAL APPROACH (WRVU 17.62) performed by Lisa Singh MD at [facility] MA[facility] OR Social History Socioeconomic History ??? Marital status: [...] on file Social History Narrative Lives in [place]. Daughter lives with her for now. Has [...] of Exercise per Session: Not on file Family History Problem Relation Age of Onset ??? Diabetes Mother ??? Diabetes Maternal Aunt ??? Diabetes Paternal Aunt ??? Diabetes Maternal Grandmother ??? Diabetes Paternal Grandmother ??? Sleep Apnea Brother ??? Sleep Apnea Niece ROS: A full 10 point review of systems was obtained and negative except for that included in the HPI. OBJECTIVE VS: BP 170/70 Pulse 85 Temp 36.4 ??C (97.5 ??F) (Temporal) Resp 18 SpO2 97% PE: General: This is a well-nourished, well-developed female who appears her stated age. She is alert and able to participate in evaluation. NAD. Skin: Color appropriate. R leg with cellulitic changes. Head: Atraumatic and normocephalic. Neck: Symmetrical with midline trachea. Eyes: Grossly normal with lids and periorbital area without edema, erythema, or lesions, anicteric sclera, and conjunctiva without swelling, erythema, injection, or exudate. EOMs grossly intact. Ears: Hearing grossly intact to normal conversation. Chest/pulmonary: SpO2 acceptable on RA. Respirations unlabored and regular. Cardiovascular: Regular rate and rhythm. Musculoskeletal: Gait and posture without obvious abnormality. Musculature and extremities grossly without deformity, asymmetry, erythema, effusion, or swelling. No evidence of grossly restricted ROM or katerin instability. Neurological: Alert and oriented to person, place, time, and situation. Attention, concentration, language, and fund of knowledge are within expected range. Speech is fluent with normal content. No gross CN deficits, abnormal movements, or FNDs. Psychiatric: Patient cooperative with appropriate behavior, thought content, and affect. LABS: Reviewed and interpreted independently. Recent Results (from the past 72 hour(s)) Hemogram Result Value Ref Range WBC 9.3 4.0 - 9.5 x10(3)/mcL RBC 5.05 4.00 - 5.21 x10(6)/mcL Hemoglobin 14.4 11.7 - 15.5 gm/dL Hematocrit 42.9 35.7 - 45.8 % MCV 85.0 82.6 - 94.4 fL MCH 28.5 27.1 - 32.0 pg MCHC 33.6 31.7 - 35.0 gm/dL Platelets 282 145 - 357 x10(3)/mcL RDWSD 42.3 37.0 - 46.0 fL RDWCV 13.6 11.5 - 14.1 % MPV 10.7 7.6 - 12.9 fL nRBC % Auto 0.0 % nRBC Abs Auto 0.000 0.000 - 0.000 x10(3)/mcL Differential, Automated Result Value Ref Range Neutrophils % 62.7 % Neutr Abs (ANC) 5.82 1.70 - 6.10 x10(3)/mcL Lymphocytes % 23.9 % Lymphocytes Abs 2.2 0.9 - 3.2 x10(3)/mcL Monocytes % 9.6 % Monocyte Abs 0.9 0.3 - 0.9 x10(3)/mcL Eosinophils % 3.1 % Eosinophils Abs 0.3 0.0 - 0.4 x10(3)/mcL Basophils % 0.4 % Basophils Abs 0.0 0.0 - 0.1 x10(3)/mcL Immature Gran % 0.30 % Surekha Gran Abs 0.03 0.00 - 0.04 x10(3)/mcL ASSESSMENT & PLAN REVIEW OF ED COURSE: Radha Masterson is a 65 y.o. female with PMH significant for morbid obesity, lymphedema, venous insufficiency, PAH, DAVID on BiPAP and home oxygen who presents to the Emergency Department right lower leg wound pain. Please see initial provider notes for further details. Briefly, patient with chronic LE lymphedema and chronic LE wounds for which she follows with wound care. Was recently hospitalized for cellulitis and then on short course of Keflex for cellulitis of leg which improvedher symptoms. However, after completing the regimen the cellulitis has recurred leading to her woundcare nurse to recommend she seek evaluation. Labs reassuring, patient afebrile without signs or symptoms of illness. Admitted to CDU for IV antibiotics overnight. CDU PROTOCOL: Cellulitis PLAN: Ancef 2g q 8hr with plan to discharge on Keflex if improving tomorrow AM. Olga Paez PA 04/19/211914 Marion Perez MD - 04/19/2021 6:10 PM EDT Images from the original note were not included. ED Resident Note HPI: Radha Masterson is a 65 y.o. female morbid obesity, lymphedema, venous insufficiency, PAH, DAVID on BiPAP, home oxygen, who presents to the Emergency Department right lower leg wound pain. She reports the right lower leg is draining more with green-colored drainage as well as more pain for the past couple days. She reports the pain feels like it is going all the way to the bone. She was seen last week in the ED for a similar concern. She completed of cellulitis abx treatment of home cefazolin last Tuesday. She was admitted to [facility] 04/05-04/08 for her cellulitis. She reports low-grade fevers to T-max of 99.6F, some chills last night. She denies new shortness of breath, chest pain, dysuria, poor p.o. intake, changes to BMs. Pt was seen under the supervision of an attending physician. Review of Systems Constitutional: Positive for chills and fever. Negative for activity change, appetite change, diaphoresis and fatigue. HENT: Negative for congestion, sinus pressure, sinus pain, sneezing and sore throat. Eyes: Negative for redness. Respiratory: Negative for cough, chest tightness and shortness of breath. Cardiovascular: Negative for chest pain, palpitations and leg swelling. Gastrointestinal: Negative for abdominal distention, abdominal pain, constipation, diarrhea, nausea and vomiting. Endocrine: Negative for polyuria. Genitourinary: Negative for difficulty urinating and dysuria. Musculoskeletal: Negative for myalgias and neck pain. Skin: Positive for wound. R lower leg wound Neurological: Negative for dizziness, syncope, weakness, light-headedness, numbness and headaches. Psychiatric/Behavioral: Negative for agitation, confusion and decreased concentration. Past Medical and Surgical Histories, Social History, Medications, Allergies were reviewed in the chart. Vitals: ED Triage Vitals [04/19/21 1634] BP: 170/70 Heart Rate: 85 Resp: 18 Temp: 36.4 ??C (97.5 ??F) Temp src: Temporal SpO2: 97 % O2 Device: NH O2 Flow Rate (L/min): 3 L/min Physical Exam Constitutional: General: She is not in acute distress. Appearance: She is obese. She is not ill-appearing. HENT: Nose: No congestion or rhinorrhea. Mouth/Throat: Mouth: Mucous membranes are moist. Pharynx: Oropharynx is clear. Eyes: Extraocular Movements: Extraocular movements intact. Pupils: Pupils are equal, round, and reactive to light. Cardiovascular: Rate and Rhythm: Normal rate and regular rhythm. Pulses: Normal pulses. Heart sounds: Normal heart sounds. Pulmonary: Effort: Pulmonary effort is normal. Breath sounds: Normal breath sounds. Comments: On home oxygen Abdominal: General: Bowel sounds are normal. Palpations: Abdomen is soft. Tenderness: There is no abdominal tenderness. Musculoskeletal: General: No tenderness. Cervical back: Normal range of motion and neck supple. Comments: B/L lymphedema Skin: General: Skin is warm and dry. Capillary Refill: Capillary refill takes less than 2 seconds. Findings: Lesion present. Comments: R lower leg wound, erythema (see picture below) Neurological: General: No focal deficit present. Mental Status: She is alert. Mental status is at baseline. Psychiatric: Mood and Affect: Mood normal. R lower leg 04/19 R lower leg 04/13 ED Course: I have reviewed labs and imaging, images and available reports, and they are significant for: Last 3 wbc, hgb, hct plt Recent Labs 04/19/21 1840 04/08/21 0138 04/07/21 0323 WBC 9.3 8.8 8.2 HGB 14.4 12.7 12.3 HCT 42.9 39.2 37.6 PLATELET 282 259 228 Last 3 Lytes Recent Labs 04/19/21 1840 04/08/21 0138 04/07/21 0323 NA 139 138 140 K 3.8 3.8 3.9 CL 101 103 105 CO2 28 26 28 BUN 18 16 16 CREATININE 0.73 0.80 0.75 GLUCOSE 137 113 97 No orders to display Procedures Assessment and Plan: 65 y.o. female with L leg cellulitis who completed treatment with keflex about 1 week ago, now with increased pain and seepage. Her CBC and BMP is benign and reassuring. It appears her cellulitis improved while on kelfex, but did not fully resolve and since worsened after the completion of the antibiotic. Given the worsening cellulitis, plan to start IV antibiotics in the CDU overnight with plan to transition to oral antibiotics outpatient. The visit findings, diagnosis, and care plan were discussed with the patient. Vianca Zuniga MD Resident 04/19/21 2849 ED ATTENDING ATTESTATION NOTE The patient was seen in conjunction with the resident physician. I have independently performed the hickman portions of the history and physical exam. I have reviewed the nursing notes, vital signs, and all diagnostic studies personally including labs, imaging studies and EKGs. I have discussed the details of the case with the resident and agree with the assessment and plan as described in the resident note unless noted otherwise. Brief Summary: recurrent RLE cellulitis which hard improved on outpatient ABX but now returned. HD stable. Agree with above plan for IV ABX and observation. Low suspicion for deep space/necrotizing infection. Final Assessment: as above. Marion Perez MD 04/21/21 0856 Chang iDego RN - 04/19/2021 5:57 PM EDT Pt reports that she was here two weeks ago d/t a problem with her wound on her R dobson. Pt states That the wound was fine until a few days ago then it turned from pink to red and has been very tender and draining green. It was draining yellowish/clear a few days ago. Pt wound is dressed and the dressing is saturated a little. documented in this encounter Plan of Treatment Not on filedocumented as of this encounter Goals Goal Patient Goal Associated Recent Patient-Stated? Author Type Problems Progress beverages Lifestyle On track Hattie Adams, (09/21/2019 Dimple Hou, RD 12:35 PM EST) [...] or use a book such as Calorie [employer]stancia (available on [employer]) OR Salsify (if you're using a package, it will have calorie and protein info on the back) - The other thing to write down would be grams of protein - 1500 is a good starting point for a ca jeffrey goal documented as of this encounter Procedures Procedure Name Priority Date/Time Associated Diagnosis Comme nts RAPID COVID-19 PCR STAT 04/19/2021 7:09 PM Res ults for this ([facility]) EDT procedure are in the results section. HEMOGRAM STAT 04/19/2021 6:40 PM Results f or this EDT procedure are i n the results section. DIFFERENTIAL, STAT 04/19/2021 6:40 PM Results for this AUTOMATED EDT procedure are i n the results section. HC CBC,PLT & AUTO STAT 04/19/2021 6:40 PM DIFF EDT BASIC METABOLIC STAT 04/19/2021 6:40 PM Result s for this PANEL (NON-FASTING) EDT procedur e are in the results section. documented in this encounter Results COVID-19 PCR (04/19/2021 7:09 PM EDT) [facility] Method Time Signature SARS-CoV-2 Not Detected Not Detected BING RNA PCR [facility] Comment: This result should be interpreted in com bination with the clinical observations, patient history and epidem iological information. For testing of asymptomatic individuals, assay performa nce characteristics and clinical utility have not been evaluated. Testing for SARS-CoV-2 (Severe acute respiratory syndrome coronavirus 2, form erly known as 2018 novel coronavirus or 2018-nCoV) to aid in the diagnosis of CO VID-19 is performed using the Simplexa COVID-19 Direct Assay by [employer] as authorized by the FDA issued Emergency Use Authorization (EUA). This assay is intended for In-vitro Diagnostic (IVD) use with nasopharyngeal swabs collected from individuals meeting the CDC criteria for testing. Th e assay is performed based on the instructions for use and additional guid ance provided by the FDA. Testing is performed in the Microbiology Laboratory within the Department of Pathology and Laboratory Medicine at [facility], certified under the Clinical Laboratory Improvement Amendmen ts of 1988 (CLIA), 42 U.S.C. section 263a, to perform high complexity tests. Assay performance has been verified according to clinical laboratory regulat ory requirements. Test results are provided above. A resul t of Not Detected indicates that the viral RNA target is not present but does not preclude SARS-CoV-2 infection. False negative results may occur if a sp ecimen is improperly collected, transported or handled; if amplification inhibitors are present; or if inadequate numbers of viral particles ar e present in the specimen. A result of Detected suggests a current or recent infection and the patient is presumed to be infected. Positive and negative pr edictive values for this test are highly dependent on disease prevalence. A result of Invalid indicates the inability to conclusively determine the presence or absence of SARS-CoV-2 RNA in the sample which can be due to a vari ety of factors. Recollection is recommended in the case of an invalid re sult. CDC COVID-19 criteria for testing on hum an specimens and clinical management guidance information are available at [facility] CDC Coronavirus Disease 2019 (COVID-19) webpage under Information fo r Healthcare Professionals (https://www.cdc.gov/coronavirus/2019-nc ov/hcp/index.html). Additional information about this and ot her EUA tests can be found in provider and patient fact sheets at the following FDA website: https://www.fda.gov/medical-devices/xfgvezuljle-dxzhgjm-9194-lpyzy-87-iepxnzxfe- jvt-ebfibwtriqerti-okxwgpv-devices/pjvxv-boloudzyjsc-vimz SARS-CoV-2 Source CONTACT REPRESENTATIVE Swab [facility] Specimen (Source) Anatomical Collection Method Collection Time Re ceived Time Location / / Volume Laterality Nasopharyngeal Swab 04/19/2021 7:09 04/19 PM EDT 8:11 PM EDT Comment: Symptoms->Surveillance Resulting Agency Comment Spec In Lab Marion Perez MD MICROBIOLOGY - GENERAL ORDER MARY Performing Organization Address City/State/ZIP Code Phon e Number [place] [phone] LAB[address]ORY [address] Differential, Automated (04/19/2021 6:40 PM EDT) athologist Signature Neutrophils % 62.7 % [facility] Neutr Abs (ANC) 5.82 1.70 - [facility] 6.10 [facility] x10(3)/[facility] LABORATORY Lymphocytes % 23.9 % [facility] Lymphocytes Abs 2.2 0.9 - 3.2 [facility] x10(3)/[facility] LABORATORY Monocytes % 9.6 % [facility] Monocyte Abs 0.9 0.3 - 0.9 [facility] x10(3)/[facility] LABORATORY Eosinophils % 3.1 % [facility] Eosinophils Abs 0.3 0.0 - 0.4 [facility] x10(3)/[facility] LABORATORY Basophils % 0.4 % [facility] Basophils Abs 0.0 0.0 - 0.1 [facility] x10(3)/[facility] LABORATORY Immature Gran % 0.30 % [facility] Comment: Immature granulocytes(IG's)percentage an d absolute count will include metamyelocytes, myelocytes, and promyelo cytes. Blood smears from CBCs yielding IG's will be scanned manually for concor dance. If this scan disagrees with the automated IG or if promyelocytes are not ed, a manual differential will be performed. Surekha Gran Abs 0.03 0.00 - 0.04 x10(3)/[facility] Specimen Anatomical Collection Method Collection Time Receive d Time (Source) Location / / Volume Laterality Blood 04/19/2021 6:40 PM 6:51 EDT PM EDT Resulting Agency Comment Spec In Lab Vianca Zuniga MD HEMATOLOGY ORDERABLES Performing Organization Address City/State/[place] [address] Hemogram (04/19/2021 6:40 PM EDT) P athologist Signature WBC 9.3 4.0 - 9.5 [facility] x10(3)/[facility] LABORATORY RBC 5.05 4.00 - [facility] x10(6)/[facility] LABORATORY Hemoglobin 14.4 11.7 - [facility] 15.5 gm/dL [facility] Hematocrit 42.9 35.7 - [facility] 45.8 % [facility] MCV 85.0 82.6 - [facility] 94.4 [facility] LAB[facility]AT[facility] MCH 28.5 27.1 - [place] 32.0 pg [facility] MCHC 33.6 31.7 - [facility] 35.0 gm/dL [facility] Platelets 282 145 - 357 [facility] x10(3)/[facility] LABORATORY RDWSD 42.3 37.0 - [facility] J[facility] 46.0 [facility] RDWCV 13.6 11.5 - [facility] 14.1 % [facility] MPV 10.7 7.6 - 12.9 [facility] LABORATORY nRBC % Auto 0.0 % [facility] nRBC Abs Auto 0.000 0.000 - [facility] 0.000 [facility] x10(3)/[facility] LABORATORY Specimen Anatomical Collection Method Collection Time Receive d Time (Source) Location / / Volume Laterality Blood 04/19/2021 6:40 PM 6:51 EDT PM EDT Resulting Agency Comment Spec In Lab Vianca Zuniga MD HEMATOLOGY ORDERABLES Performing Organization Address City/State/[place] [address] Basic Metabolic Panel (non-fasting) (04/19/2021 6:40 PM EDT) P athologist Signature Glucose Lvl 137 65 - 199 [facility] mg/dL [facility] Comment: Diabetes: >=200 mg/dL plus symp toms BUN 18 8 - 18 mg/dL [facility] Creatinine 0.73 0.70 - 1.20 mg/dL [facility] Sodium 139 135 - 145 mmol/L [facility] Potassium 3.8 3.5 - 5.0 mmol/L [facility] Comment: Please note: ??Patients with WBC >100,00 0 may have falsely elevated Potassium levels. ??For accurate Potassium quantif ication in these patients send serum separator tube (gold top) for subsequent determinations. ??Contact the Clinical Chemistry Laboratory if there are any qu estions. Chloride 101 98 - 107 mmol/L [facility] CO2 28 22 - 31 mmol/L [facility] Anion Gap 10 5 - 15 mmol/L [facility] Calcium 8.7 8.5 - 10.5 mg/dL [facility] Estimated GFR 87 >=60 mL/min/1.73 m?? [facility] Comment: This patient? s estimated glomerular filtration rate (eGFR) is between 87 mL/min/1.73 m2 (patients with less muscl e mass) and 101 mL/min/1.73 m2 (patients with more muscle mass) [...] (Source) Location / / Volume Laterality Blood 04/19/2021 6:40 PM 6:51 EDT PM EDT Resulting Agency Comment Spec In Lab Marion Perez MD CHEMISTRY ORDERABLES Performing Organization Address City/State/ZIP Code Phon e Number [place] [phone] LAB[address]ORY [address] documented in this encounter Visit Diagnoses Diagnosis Cellulitis - Primary Cellulitis and abscess of unspecified si te documented in this encounter Admitting Diagnoses Diagnosis Cellulitis Cellulitis and abscess of unspecified si te documented in this encounter Administered Medications Inactive Administered Medications - up to 3 most recent administrations Medication Order MAR Action Action Date Dose Rate Site acetaminophen (Tylenol) tablet 650 Given 04/19/2021 9:30 PM EDT 650 mg mg 650 mg, Oral, EVERY 6 HOURS PRN, Starting on 04/19/21 at 1914, Until Tue04/20/21 at 1507, Pain, Fever, Maximum dose of acetaminophen is 4000 mg from all sources in 24 hours. When ordered for pain, acetaminophen should be given even when other ordered pain medications are indicated. , Routine aspirin tablet 325 mg Given 04/20/2021 10:17 AM EDT 325 mg 325 mg, Oral, DAILY, First dose on 04/20/21 at 0900, Until Discontinued, Routine buPROPion (Wellbutrin) tablet 100 mg Given 04/20/2021 10:17 AM EDT 100 mg 100 mg, Oral, 2 TIMES DAILY, First dose on 04/19/21 at 2100, Until Discontinued, Routine Given 04/19/2021 9:31 PM EDT 100 mg busPIRone (Buspar) tablet 10 mg Given 04/20/2021 10:17 AM EDT 10 mg 10 mg, Oral, 3 TIMES DAILY, First dose on 04/19/21 at 2100, Until Discontinued, Routine Given 04/19/2021 9:33 PM EDT 10 mg calcium carbonate (Tums) chewable tablet Given 04/20/2021 10 :17 AM EDT 1,000 mg 1,000 mg 1,000 mg, Oral, 3 TIMES DAILY, First dose on Tue04/19/21 at 2100, Until Discontinued, Routine Given 04/19/2021 9:34 PM EDT 1,000 mg ceFAZolin (Ancef) 2 g in New Bag (1 of 2) 04/20/2021 10:22 AM EDT 2 g 100 mL/hr dextrose 5% 100 mL (2 x 1 g/50 mL premix bags) infusion 2 g, Intravenous, EVERY 8 HOURS, First dose on 04/19/21 at 1857, Until Discontinued, Administer over 30 Minutes, Total dose of ceFAZolin 2 grams, administered using two ceFAZolin 1g/50mL IV bags. Infuse each ceFAZolin 1g/50mL bag over 30 minutes (100 ml/hr) for total infusion time of 60 minutes. On the MAR, document administration of first bag using New Bag (1 of 2) MAR action for dose of 1g. On the MAR, document administration of second bag using Next Bag (2 of 2) MAR action for dose of 1g (resulting in total dose of 2g)., Indication for (Active or Suspected): Skin/Skin Structure New Bag (1 of 2) 04/20/2021 2:54 AM EDT 2 g 100 mL/hr New Bag (1 of 2) 04/19/2021 7:33 PM EDT 2 g 100 mL/hr citalopram (CeleXA) tablet 20 mg Given 04/20/2021 10:17 AM EDT 20 mg 20 mg, Oral, DAILY, First dose on 04/19/21 at 1916, Until Discontinued, Routine furosemide (Lasix) tablet 80 mg Given 04/20/2021 10:16 AM EDT 80 mg 80 mg, Oral, DAILY, First dose on 04/19/21 at 1916, Until Discontinued, Routine levothyroxine (Synthroid) tablet 250 mcg Given 04/20/2021 7:44 AM EDT 250 mcg 250 mcg, Oral, DAILY, First dose on Tue04/20/21 at 0600, Until Discontinued, Routine metFORMIN (Glucophage) tablet 1,000 mg Given 04/20/2021 7:44 AM EDT 1,000 mg 1,000 mg, Oral, 2 TIMES DAILY WITH MEALS, First dose on Tue04/20/21 at 0800, Until Discontinued, Routine montelukast (Singulair) tablet 10 mg Given 04/19/2021 9:31 PM EDT 10 mg 10 mg, Oral, NIGHTLY, First dose on 04/19/21 at 2100, Until Discontinued, Routine spironolactone (Aldactone) tablet 25 mg Given 04/20/2021 10:17 AM EDT 25 mg 25 mg, Oral, DAILY, First dose on 04/19/21 at 1916, Until Discontinued, DO NOT SPLIT, CRUSH OR OPEN, Routine documented in this encounter Active and Recently Administered Medications Times are shown in EDT. Scheduled Medication Order 04/18/2021 04/19/2021 04/20/2021 aspirin tablet 325 mg 101 (Give n - Provider: Ann Daniels, OZ) 325 mg, Oral, DAILY, First dose on Tue at 0900, Until Discontinued, Routine buPROPion (Wellbutrin) tablet 100 mg 213 (Given - Provider: Alisa Zapien, OZ) 1016 (Given - Provider: Ann Daniels, RN ) 100 mg, Oral, 2 TIMES DAILY, First dose on 04/19/21 at 2100, Until Discontinued, Routine busPIRone (Buspar) tablet 10 mg 2132 (Gi katheryn - Provider: Alisa Zapien, RN) 1016 (Given - Provider: Ann Daniels, RN ) 10 mg, Oral, 3 TIMES DAILY, First dose o n 04/19/21 at 2100, Until Discontinued, Routine calcium carbonate (Tums) chewable tablet 1,000 mg 2133 (Given - Provider: Alisa Zapien, RN) 1016 (Given - Provider: Ann Daniels, RN ) 1,000 mg, Oral, 3 TIMES DAILY, First dos e on 04/19/21 at 2100, Until Discontinued, Routine ceFAZolin (Ancef) 2 g in dextrose 5% 100 mL (2 x 1 g/50 mL premix bags) infusion 1932 (New Bag (1 of 2) - Pro vider: Alisa Zapien RN)2002 (Next Bag (2 of 2) - Provider: Alisa Zapien RN)2052 (Stopped - Provider: Alisa Zapien RN) 0254 (New Bag (1 of 2) - Provider: Emily Garcia LPN)0324 (Next Bag (2 of 2) - Provider: Emily Garcia LPN)0354 (Stopped - Provider: Emily Garcia LPN)1022 (New Bag (1 of 2) - Provider: Ann Daniels RN) 2 g, Intravenous, EVERY 8 HOURS, First d ose on 04/19/21 at 1857, Until Discontinued, Administer over 30 Minutes, Total dose of ceFAZolin 2 grams, administered using two ceFAZolin 1g/50mL IV bags. Infu 1158 (Next Bag (2 of 2) - Provider: Ann Daniels RN)1228 (Due: Stopped - Provider: Ann Daniels RN) se each ceFAZolin 1g/50mL bag over 30 mi nutes (100 ml/hr) for total infusion time of 60 minutes. On the OCT, document administration of first bag using New Bag (1 of 2) MAR action for dose of 1g. On t he OCT, document administration of secon d bag using Next Bag (2 of 2) MAR action for dose of 1g (resulting in total dose of 2g)., Indication for (Active or Suspected): Skin/Skin Structure citalopram (CeleXA) tablet 20 mg 2130 (N ot Given - Provider: Alisa Zapien RN - Reason: See comment - Comment: takes in am) 1017 (Given - Provider: Ann Daniels RN) 20 mg, Oral, DAILY, First dose on 04/19/21 at 1916, Until Discontinued, Routine furosemide (Lasix) tablet 80 mg 1915 (No t Given - Provider: Alisa Zapien RN - Reason: See comment - Comment: takes in am) 1016 (Given - Provider: Ann A Small, RN) 80 mg, Oral, DAILY, First dose on 04/19/21 at 1916, Until Discontinued, Routine levothyroxine (Synthroid) tablet 250 mcg 0744 (Given - Provider: Ann Daniels RN) 250 mcg, Oral, DAILY, First dose on Tue04/20/21 at 0600, Until Discontinued, Routine metFORMIN (Glucophage) tablet 1,000 mg 0744 (Given - Provider: Ann Daniels RN) 1,000 mg, Oral, 2 TIMES DAILY WITH MEALS , First dose on Tue04/20/21 at 0800, Until Discontinued, Routine montelukast (Singulair) tablet 10 mg 213 1 (Given - Provider: Alisa Zapien, OZ) 10 mg, Oral, NIGHTLY, First dose on Tue04/19/21 at 2100, Until Discontinued, Routine spironolactone (Aldactone) tablet 25 mg 2133 (Not Given - Provider: Alisa Zapien RN - Reason: See comment - Comment: takes in am) 1017 (Given - Provider: Ann Daniels RN) 25 mg, Oral, DAILY, First dose on 01/02 at 1916, Until Discontinued, DO NOT SPLIT, CRUSH OR OPEN, Routine PRN Medication Order 04/18/2021 04/19/2021 04/20/2021 acetaminophen (Tylenol) tablet 650 mg 21 30 (Given - Provider: Alisa Zapien, OZ) 650 mg, Oral, EVERY 6 HOURS PRN, Startin g on 04/19/21 at 1914, Until Tue04/20/21 at 1507, Pain, Fever, Maximum dose of acetaminophen is 4000 mg from all sources in 24 hours. When ordered for pain, acet aminophen should be given even when othe r ordered pain medications are indicated. , Routine ipratropium-albuteroL (Duoneb) 0.5 mg-3 mg(2.5 mg base)/3 mL nebulizer solution 3 mL 3 mL, Nebulization, EVERY 4 HOURS PRN, S tarting on 04/19/21 at 1915, Until Tue04/20/21 at 1507, Wheezing, Routine documented in this encounter Care Teams Line Rider Relationship Specialty Start Date End Date Alphonso Murphy MD PCP - General Family Medicine 02/19/16 [address] [place] [address] documented as of this encounter
--- OUTSIDE RECORDS SUMMARY | 2022-03-05 02:15 | XMS_ITS | Encounter Summary ---
:1955 Author Organization [facility] [place] [address] Care Team Providers Name Role Phone Alphonso Murphy MD Primary Care Provider [phone] Encounter Details Date Type Department Care Team Description 04/19/2021 Telephone General Surgery at [facility] Justice Barksdale MD [facility] [place] [address] GENERAL SURGERY [phone] [place], [place] [address] (Wo rk) Social History Tobacco Use Types Packs/Day Years Used Date Former Smoker Cigarettes 3 40 Quit: 10/08/19 11 Smokeless Tobacco: Never Used Alcohol Use Standard Drinks/Week Comments No 0 (1 standard drink = 0.6 oz pure alcoho l) Sex Assigned at Date Recorded Not on file documented as of this encounter Miscellaneous Notes Telephone Encounter - Justice Barksdale MD - 04/19/2021 12:11 PM EDT I called the patient's home health nurse ([facility]) at 12:05 PM. Radha Masterson is a 65 y.o. female who is s/p total thyroidectomy with Dr. Singh on 03/03/21. She was subsequently [place] [facility] [place]05[place]04[place]08[place]21 for RLE cellulitis. Since discharge she has had daily [facility] wound care. She was last seen by wound care in clinic on 04/13/21. She is notcurrently on any antibiotics. They are calling in regards to concern for worsening appearance of Radha's RLE wound. Per report there is worsening blisters, edema, erythema, pain, and green purulent drainage. She has been afebrile with Tmax 99 and without chills or other systemic complaints. I advised the patient's home health nurse that if there is concern for worsening of her wound, that she could consider presentation to local urgent care or emergency department for further evaluation. They are in agreement with this plan. This note will be routed to the provider mentioned above. Justice Barksdale MD documented in this encounter Plan of Treatment [...] On track (09/21/2019 12:35 PM EST) N [address] Note: Formatting of this note might [...] On track (09/21/2019 12:35 PM EST) N Dimple W[address] Note: Formatting of this note might [...] google or use a book such as [employer] (available on [employer]) OR RxResults (if you're using a package, it will have calorie and protein info on the back) - The other thing to write down would be grams of protein - 1500 is a good starting point for a ca jeffrey goal documented as of this encounter Visit Diagnoses Not on filedocumented in this encounter Care Teams Production Shift Supervisor Relationship Specialty Start Date End Date Alphonso Murphy MD PCP - General Family Medicine 02/19/[address] [place] [address] documented as of this encounter
--- OUTSIDE RECORDS SUMMARY | 2022-03-05 02:15 | XMS_ITS | Encounter Summary ---
:1955 Author Organization [facility] [place] [address] Care Team Providers Name Role Phone Alphonso Murphy MD Primary Care Provider [phone] Encounter Details Date Type Department Care Team Description 03/23/2021 Laboratory Lab 3L [facility] S/P [place] [phone] Social History Tobacco Use Types Packs/Day Years [...] google or use a book such as [employer] (available on [employer]) OR [employer] (if you're using a package, it will have calorie and protein info on the back) - The other thing to write down would be grams of protein - 1500 is a good starting point for a ca jeffrey goal documented as of this encounter Procedures Procedure Name Priority Date/Time Associated Diagnosis Comme nts HC PARATHYROID Routine 03/23/2021 10:13 S/P total Results f or this HORMONE(PTH INTACT AM EDT thyroidectomy procedur e are in the results section. HC CALCIUM, SERUM Routine 03/23/2021 10:13 S/P total Result s for this AM EDT thyroidectomy procedure are in the results section. documented in this encounter Results PTH (03/23/2021 10:13 AM EDT) athologist Signature PTH 31 15 - 65 [place] pg/mL [facility] Specimen Anatomical Collection Method Collection Time Receive d Time (Source) Location / / Volume Laterality Blood 03/23/2021 10:13 03/23/2021 AM EDT 10:21 AM EDT Resulting Agency Comment Spec In Lab Lisa Singh MD CHEMISTRY ORDERABLES Performing Organization Address City/[facility]/ZIP [place] [address] Calcium (03/23/2021 10:13 AM EDT) P athologist Signature Calcium 9.0 8.5 - 10.5 [place] mg/dL [facility] Specimen Anatomical Collection Method Collection Time Receive d Time (Source) Location / / Volume Laterality Blood 03/23/2021 10:13 03/23/2021 AM EDT 10:21 AM EDT Resulting Agency Comment Spec In Lab Lisa Singh MD CHEMISTRY ORDERABLES Performing Organization Address City/[facility]/ZIP [facility] [place] [address] documented in this encounter Visit Diagnoses Diagnosis S/P total thyroidectomy Other postprocedural status documented in this encounter Care Teams Director Ship Relationship Specialty Start Date End Date Alphonso Murphy MD PCP - General Family Medicine 02/19/[address] [place] [address] documented as of this encounter
--- OUTSIDE RECORDS SUMMARY | 2022-03-05 02:15 | XMS_ITS | Encounter Summary ---
:1955 Author Organization [facility] [place] [address] Care Team Providers Name Role Phone Alphonso Murphy MD Primary Care Provider [phone] Encounter Details Date Type Department Care Team Description 10/[facility]20[facility] [place] [address] Social History Tobacco Use Types Packs/Day Years Used Date Former Smoker Cigarettes 3 40 Quit: 10/08/19 11 Smokeless Tobacco: Never Used Alcohol Use Standard Drinks/Week Comments No 0 (1 standard drink = 0.6 oz pure alcoho l) Sex Assigned at Date Recorded Not on file documented as of this encounter Miscellaneous Notes Telephone Encounter - Maris Jurado LPN - 10/01/2021 3:50 PM EST Phone call to [facility]. Patient was discharged from services in June. Last office note from Wound Care states to follow up in 2 weeks. Phone call to Radha Garcia states her lower leg wounds are all healed as of June. She continues to use compression andcurrently does not have any open areas. Patient is aware to call for any further concerns. Maris uJrado LPN documented in this encounter Plan of [...] google or use a book such as [employer] (available on [employer]) OR [employer] (if you're using a package, it will have calorie and protein info on the back) - The other thing to write down would be grams of protein - 1500 is a good starting point for a ca jeffrey goal documented as of this encounter Visit Diagnoses Not on filedocumented in this encounter Care Teams Chip Drier Relationship Specialty Start Date End Date Alphonso Murphy MD PCP - General Family Medicine 02/19/[address] [place] [address] [address] [place] [address] documented as of this encounter
--- OUTSIDE RECORDS SUMMARY | 2022-03-05 02:15 | XMS_ITS | Encounter Summary ---
:1955 Author Organization [facility] [place] [address] Care Team Providers Name Role Phone Alphonso Murphy MD Primary Care Provider [phone] Reason for Referral Diagnostic Test (Routine) - New Request Specialty Diagnoses / Procedures Referred By Contact Refer red To Contact Diagnoses Venous stasis ulcer of right calf limited to breakdown of skin, unspecified whether varicose veins present Venous insufficiency of both lower extremities Lymphedema of both lower extremities Amy Bhatia APRN [facility] 3v Procedures JESUS ALBERTO, legs, multiple levels [facility] [place] [address] [place] [address] Referral ID Status Reason Start Expiration Visits Visits Date Date Requested Authorized [id number] New Request Specialty 04/13/2021 04/13/2022 1 1 Service Requested Encounter Details Date Type Department Care Team Description 04/13/2021 Office Visit Wound Care at [facility] Venous stasis ulcer of right calf limited to breakdown of skin, unspecified whether varicose veins present (Primary Dx); [facility] DEISY Magana Venous insufficiency of both lower extre mities; [facility] Lymphedema of both lower ext remities [facility] Center [address] WOUND CENTER [place], [place] TONYBANNER MD [facility] [place] [phone] Social History Tobacco Use Types Packs/Day Years Used Date Former Smoker Cigarettes 3 40 Quit: 10/08/19 11 Smokeless Tobacco: Never Used Alcohol Use Standard Drinks/Week Comments No 0 (1 standard drink = 0.6 oz pure alcoho l) Sex Assigned at Date Recorded Not on file documented as of this encounter Last Filed Vital Signs Vital Sign Reading Time Taken Comments Blood Pressure 144/82 04/13/2021 2:41 PM EDT Pulse 68 04/13/2021 2:41 PM EDT Temperature 36.5 ??C (97.7 ??F) 04/13/2021 2:41 PM EDT Respiratory Rate - - Oxygen Saturation 94% 04/13/2021 2:41 PM EDT on 3l v ia NC Inhaled Oxygen Concentration - - Weight - - Height - - Body Mass Index - - documented in this encounter Patient Instructions Patient InstructionsAmy Bhatia APRN - 04/13/2021 2:30 PM EDT Instructions: Dressing Instructions to right lower leg [...] with any above symptoms Tuesday- Tuesday 8:00AM-4:30PM ([phone]). If weekends / holidays / evenings, please report to the Emergency Department. ? documented in this encounter Progress Notes Amy Bhatia APRN - 04/13/2021 2:30 PM EDT Images from the original note were not included. [facility] Progress Note Reason for Visit: Ms. Masterson is here today for F/U visit R/T RLE venous ulcer. HPI: Cyn Masterson is a 65 y.o. female referred [...] antibiotics (Vancomycin)then discharged to home on Cefazolin. VNA: [facility] initiated 04/01/21 Patient Active Problem List Diagnosis [...] L97.211 ??? Cellulitis of right leg L03.115 Diagnostics: JESUS ALBERTO's:Pending 04/08/21 WBC 4.0 - 9.5 x10(3)/mcL 8.8 [...] today for F/U visit R/T RLE venous ulcers,weeping. She is S/P hospitalization for cellulitis RLE 04/05/21 to 04/08/21. She wears a compression stockings to LLE, dermafit to RLE. She continues to have a large amount of drainage from RLE wound. She has several doses remaining of Cefazolin for cellulitis. Denies constitutional symptoms of fever, chills. CV: Denies CP, has SOB and wears nasal cannula O2 at 3l/min GI: denies N/V, diarrhea : Denies voiding issues Diet: Appetite good Wound care:Mepilex AG non border to RLE Neuropathy: Denies Pain: Present to anterior RLE where open area, weeping is present PE: BP-144/82 P-68 Temp-97.7 02 Sat-94% General: pleasant, in NAD Mobility:Arrived via motorized wheelchair Edema: Lymphedema to BLE Right foot warm to touch. Varicosities: Not visible Hemosiderin staining: Present Stasis dermatitis:No Callus:No Nails: Thickened Periwound: Intact Wound bed:Weeping serous fluid, erythema Exudate:Serous, yellow tinged Odor: None Right Calf: 68.5 cm Right Ankle: 45 cm Anterior RLE Wound location Wound bed 04/13/21 Measurement Anterior RLE Erythema, weeping 12.5cm L x 13.6 cm W x ,0.1cm D 12.0cm L x 10.cm W Wound treatment: Wound Location:Anterior RLE Cleansed wound with NS and Vasche using a Debri soft pad Analgesia:None Conservative sharp debridement: No debridement today Patient was uncomfortable during treatment. Dressing: Mepilex AG non border secured with Kerlix Dermafit single layer- Size G to RLE Assessment/ Plan: Cyn Masterson is a 65 y.o. female Here today for F/U visit R/T evaluation of [...] 04/05/21 to 04/08/21 for cellulitis RLE. She has several doses remaining ofCefazolin. We discuss obtaining ABIs in preparation for compression therapy and she agreed to same. Continue Wound care with silver Non border foam for antimicrobial effects and absorption of drainage. Continue VNA services for wound assessment and dressing changes. Verbal and written wound care instructions were provided. She will call with any questions or concerns. Will plan F/U 1 weeks for ABIs and wound center. If ABIs within normal range will plan on 4 layer wrap for compression.She agreed to POC. Follow up: 1 weeks Instructions: Dressing Instructions to right lower [...] drainage (thick yellow/green drainage) Malodor Contact the [facility] with any above symptoms Tuesday- Tuesday 8:00AM-4:30PM ([phone]). If weekends / holidays / evenings, please report to the Emergency Department. Cc: Alphonso Murphy MD [address] [place] [address] PCP: Alphonso Murphy MD documented in this encounter Plan of [...] google or use a book such as [employer] (available on Vivaty) OR [employer] (if you're using a package, it will have calorie and protein info on the back) - The other thing to write down would be grams of protein - 1500 is a good starting point for a ca jeffrey goal documented as of this encounter Results JESUS ALBERTO, legs, multiple levels (04/30/2021 12:42 PM EDT) Component Value Ref Test Analysis Performed At [facility] gist Range Method Time Signature VB Text Department: Vascular Surgery Lab VASCUBASE Report Patient: [id number] (CYN MASTERSON) CPT: 91938 ICD10: I87.2;L97.211;I89.0;I83.012 Referring Physician: AMY BHATIA ?? Indications: right lower extremity anterior dobson wound, venous insufficiency, lymphedema, ? arterial disease prior to compression Diabetes mellitus: no ICD10 Diagnosis Code: I87.2, L97.211, I89.0, I83.012 Findings: Right ?Pressure (mm Hg) ?? JESUS ALBERTO ??Waveform ?? Brachial Artery ?128 ? Dorsalis Pedis (Ankle) Arter y ?138 ? 1.00 ??Triphasic ?? Posterior Tibial (Ankle) Artery ??137 ? 0.99 ??Triphasic ?? Left ? Pressure (mm Hg) ?? JESUS ALBERTO ??Waveform ?? Brachial Artery ?138 ? Dorsalis Pedis (Ankle) Arter y ?128 ? 0.93 ??Triphasic ?? Posterior Tibial (Ankle) Artery ??152 ? 1.10 ??Triphasic ?? Interpretation: RIGHT: No significant lower extremity arterial o cclusive disease identifiable at rest. Normal ankle/brachial pressure ratios and ankle D oppler waveforms. LEFT: No significant lower e xtremity arterial occlusive disease identifiable at rest. Normal ankle/brachial pressure ratios and ankle Dopple r waveforms. Comparison: No previous study in our vascular lab database for compariso n. Electronically Signed by: JUAN JHA on 2021-04-30 01: 25:42 PM VB Text End of Report VASCUBASE Report Specimen (Source) Anatomical Collection Method Collection Time Re ceived Time Location / / Volume Laterality 04/30/2021 12:42 PM EDT Amy Bhatia APRN VASCULAR ORDERABLES Performing Organization Address City/State/ZIP Code Phon e Number VASCUBASE documented in this encounter Visit Diagnoses Diagnosis Venous stasis ulcer of right calf limite d to breakdown of skin, unspecified whether varicose veins present - Primary Venous insufficiency of both lower extre mities Lymphedema of both lower extremities documented in this encounter Care Teams Ict Help Desk Officer Relationship Specialty Start Date End Date Alphonso Murphy MD PCP - General Family Medicine 02/19/[address] [place] [address] documented as of this encounter
--- OUTSIDE RECORDS SUMMARY | 2022-03-05 02:15 | XMS_ITS | Encounter Summary ---
:1955 Author Organization [facility] [place] [address] Care Team Providers Name Role Phone Alphonso Murphy MD Primary Care Provider [phone] Encounter Details Date Type Department Care Team Description 05/18/2021 Office Visit [facility] Care at [facility] Ven ous stasis ulcer of right calf limited to breakdown of skin, unspecified whether varicose veins present; [facility] [employer] Lymphedema of both lower extremities [facility] W[place] [phone] Social History Tobacco Use Types Packs/Day Years Used Date Former Smoker Cigarettes 3 40 Quit: 10/08/19 11 Smokeless Tobacco: Never Used Alcohol Use Standard Drinks/Week Comments No 0 (1 standard drink = 0.6 oz pure alcoho l) Sex Assigned at Date Recorded Not on file documented as of this encounter Last Filed Vital Signs Vital Sign Reading Time Taken Comments Blood Pressure 151/68 05/18/2021 1:46 PM EDT Pulse 78 05/18/2021 1:46 PM EDT Temperature 37 ??C (98.6 ??F) 05/18/2021 1:46 PM EDT Respiratory Rate 18 05/18/2021 1:46 PM EDT Oxygen Saturation 97% 05/18/2021 1:46 PM 3L of o2 vi a nasal EDT canula Inhaled Oxygen - - Concentration Weight - - Height - - Body Mass Index - - documented in this encounter Patient Instructions Patient InstructionsAmy Bhatia APRN - 05/18/2021 1:45 PM EDT Instructions: Post Visit Instructions (Home Health Agency and/or patient): Change dressing every??2??days or sooner for 50% or greater strike through drainage. ??Stop the Mepilex AG dressing and Hydrofera Blue Ready Dressings Start Allevyn dressings to anterior RLE. ?? 1. Remove old dressing. 2. Cleanse wound with wound cleanser or normal saline and gauze. 3. Apply skin prep to periwound skin. 4. Cover wound bed with Allevyn non border and secure with??Kerlix gauze and??Medipore tape. 5. Apply a double layer of Dermafit Size G to RLE? Monitor for signs of infection which may include: Fever Sweats Chills Nausea, Vomiting or Diarrhea Unexplained increase in Blood Glucose levels ?? At or around the wound site: Increased pain Swelling or edema Redness Warmth ?? Purulent drainage (thick yellow/green drainage) Malodor ?? Contact the [facility] with any above symptoms Tuesday- Tuesday 8:00AM-4:30PM ([phone]). If weekends / holidays / evenings, please report to the Emergency Department.? documented in this encounter Progress Notes Amy Bhatia APRN - 05/18/2021 1:45 PM EDT Images from the original note were not included. [facility] Progress Note Reason for [...] antibiotics (Vancomycin)then discharged to home on Cefazolin. 05/14/21 Seen by Dermatology-Started on topical Diprolene 0.05% x 4 weeks VNA: [facility] initiated 04/01/21 Patient Active Problem List Diagnosis Code ??? Pleural effusion on right J90 ??? Musculoskeletal chest pain R07.89 ??? Pulmonary hypertension I27.20 ??? DAVID treated with BiPAP G47.33 ??? Dependence on continuous supplemental oxygen Z99.81 ??? Anxiety F41.9 ??? Intertrigo L30.4 ??? Grief at loss of child F43.21, Z63.4 ??? Depression F32.A ??? Vitamin D deficiency E55.9 ??? BMI [...] pressure ratios and ankle Doppler waveforms. ?? Review Of Systems: Ms. Masterson is here today for F/U visit R/T RLE venous ulcers,weeping in setting of venous insufficiency and lymphedema. She is S/P visit in Dermatology and was started on Diprolene daily to wound x 4 weeks.Fungal testingwas negative. She wears a compression stockings to LLE and is followed by the Lymphedema specialist. She continues to have moderate drainage from RLE wound.. She reports a stabbing pain at times to area of wound RLE. Denies constitutional symptoms of fever, chills. CV: She reports SOB and wears nasal cannula O2 at 3l/min, denies chest pain GI: denies N/V, diarrhea : Denies voiding issues Diet: Appetite good Wound care:Hydrofera Blue Ready non border to RLE Neuropathy: Denies Pain: Present to anterior RLE where open area, weeping is present PE: BP-151/68 P-78 Temp-98.6 General: pleasant, in NAD, nasal cannula O2 in place. Mobility:Arrived via motorized wheelchair Edema: Lymphedema to BLE Right foot warm to touch. Varicosities: Not visible Hemosiderin staining: Present Dermatitis:to RLE Callus:No Nails: Thickened Periwound: Intact Wound bed:Minimal Weeping serous fluid today Exudate:Serous, yellow tinged Odor: None Right Calf: 67.0 cm Right Ankle: 36cm Anterior RLE Wound location Wound bed 05/18/21 05/11/21 04/13/21 Measurement Anterior RLE Erythema, weeping 18.0cm L x 15.0cm W x <0.1cm D 18.0cm L x 18.5cm W x <0.1cm D 12.5cm L x 13.6 cm W x ,0.1cm D 12.0cm L x 10.cm W Wound treatment: Wound Location:Anterior RLE Cleansed wound with NS and Vasche using a Debri soft pad Analgesia:None Conservative sharp debridement: No debridement today Patient tolerated procedure well. TAC cream applied to affected area RLE. Dressing: Allevyn to open area RLE secured with Kerlix Dermafit double layer - Size G to RLE Assessment/ Plan: Radha Masterson is a 66 y.o. female here today for F/U visit R/T evaluation of RLE venous ulcers is setting of lymphedema and venous insufficiency. The open area to RLE began February 2021 as water blisters. The blisters ruptured and began draining. The drainage has persisted from her legand is painful. She is S/P hospitalization 04/05/21 to 04/08/21 for cellulitis RLE. She was seen in the ED [facility] 05/05/21 for elevated temperature and increased drainage RLE. Shecompleted Cefazolin on 04/30/21. She has a pattern of elevated temp, drainage RLE-placed on antibiotics each time. Once antibiotics completed, symptoms return in several days. Recent ABIs with no significant LEAD. Seen in Dermatology and started on Diprolene daily to RLE x 4 weeks. Fungal testing was negative. The area of eythema has decreased in size over the course of the week. Wound care was changed to Allevyn form Hydrofera Blue. Continue VNA services for wound assessment and dressing changes. Verbal and written wound care instructions were provided. She will call with any questions or concerns. Will plan F/U 1 week wound center. She agreed to POC. She knows to be seen sooner with any new or worsening symptoms. Follow up: 1 week Instructions: Post Visit Instructions (Home Health Agency and/or patient): Change dressing every??2??days or sooner for 50% or greater strike through drainage. ??Stop the Mepilex AG dressing and Hydrofera Blue Ready Dressings Start Allevyn dressings to anterior RLE. ?? 1. Remove old dressing. 2. Cleanse wound with wound cleanser or normal saline and gauze. 3. Apply skin prep to periwound skin. 4. Cover wound bed with Allevyn non border and secure with??Kerlix gauze and??Medipore tape. 5. Apply a double layer of Dermafit Size G to RLE? Monitor for signs of infection which may include: Fever Sweats Chills Nausea, Vomiting or Diarrhea Unexplained increase in Blood Glucose levels ?? At or around the wound site: Increased pain Swelling or edema Redness Warmth ?? Purulent drainage (thick yellow/green drainage) Malodor ?? [facility] the [facility] with any above symptoms Tuesday- Tuesday 8:00AM-4:30PM ([phone]). If weekends / holidays / evenings, please report to the Emergency Department.? documented in this encounter Plan of Treatment [...] google or use a book such as [employer] (available on [employer]) OR [employer] (if you're using a package, it will [...] of skin, unspecified whether varicose veins present Lymphedema of both lower extremities documented in this encounter Care Teams Carbon Rod Inserter Relationship Specialty Start Date End Date Alphonso Murphy MD PCP - General Family Medicine 02/19/[address] [place] [address] documented as of this encounter
--- OUTSIDE RECORDS SUMMARY | 2022-03-05 02:15 | XMS_ITS | Encounter Summary ---
:1955 Author Organization [facility] [place] [address] Care Team Providers Name Role Phone Alphonso Murphy MD Primary Care Provider [phone] Encounter Details Date Type Department Care Team Description 05/12/2021 Telephone Physical Therapy at [facility] [place] [address] Social History Tobacco Use Types Packs/Day Years Used Date Former Smoker Cigarettes 3 40 Quit: 10/08/19 11 Smokeless Tobacco: Never Used Alcohol Use Standard Drinks/Week Comments No 0 (1 standard drink = 0.6 oz pure alcoho l) Sex Assigned at Date Recorded Not on file documented as of this encounter Miscellaneous Notes Telephone Encounter - Linh Marcos - 05/12/2021 10:14 AM EDT Received fax confirmation from sending to [facility] #[phone]. For Emmett Mcintosh, PT on Tuesday05/11/2021 documented in this encounter Plan of Treatment Not on filedocumented as of this encounter Goals Goal Patient Goal Associated Recent Patient-Stated? Author Type Problems Progress beverages Lifestyle On track Hattie Adams, (09/21/[address] 12:35 PM EST) Note: Formatting of [...] writing down Lifestyle On track (09/21/2019 Dimple Augustin, RD your foods 12:35 PM EST) Note: Formatting of this note might be d ifferent from the original. - use the notebook - can you add some calorie information: Either google or use a book such as Calorie [employer] (available on Exabeam) OR [employer] (if you're using a package, it will have calorie and protein info on the back) - The other thing to write down would be grams of protein - 1500 is a good starting point for a ca jeffrey goal documented as of this encounter Visit Diagnoses Not on filedocumented in this encounter Care Teams Cad Manager Relationship Specialty Start Date End Date Alphonso Murphy MD PCP - General Family Medicine 02/19/[address] [place] [address] documented as of this encounter
--- OUTSIDE RECORDS SUMMARY | 2022-03-05 02:15 | XMS_ITS | Encounter Summary ---
:1955 [place] [address] Care Team Providers Name Role Phone Alphonso Murphy MD Primary Care Provider [phone] Encounter Details Date Type Department Care Team Description 03/31/2021 Notes Only Wound Care at [facility] Laurie Templeton, [place] [address] Social History Tobacco Use Types Packs/Day Years Used Date Former Smoker Cigarettes 3 40 Quit: 10/08/19 11 Smokeless Tobacco: Never Used Alcohol Use Standard Drinks/Week Comments No 0 (1 standard drink = 0.6 oz pure alcoho l) Sex Assigned at Date Recorded Not on file documented as of this encounter Progress Notes Zoila Templeton RN - 03/31/2021 4:25 PM EDT Referral for VNA services faxed to [facility]. documented in this encounter Plan of Treatment [...] or use a book such as [employer]orie [employer] (available on PlayhouseSquare) OR [employer] (if you're using a package, it will have calorie and protein info on the back) - The other thing to write down would be grams of protein - 1500 is a good starting point for a ca jeffrey goal documented as of this encounter Visit Diagnoses Not on filedocumented in this encounter Care Teams Religious Assistant Relationship Specialty Start Date End Date Alphonso Murphy MD PCP - General Family Medicine 02/19/[address] [place] [address] documented as of this encounter
--- OUTSIDE RECORDS SUMMARY | 2022-03-05 02:15 | XMS_ITS | Encounter Summary ---
:1955 Author Organization [facility] [place] [address] Care Team Providers Name Role Phone Alphonso Murphy MD Primary Care Provider [phone] Encounter Details Date Type Department Care Team Description 04/30/2021 [facility] ulcer of right calf limited to breakdown of skin, unspecified whether varicose veins present; [facility] Venous in sufficiency of both lower extremities; Hospital Lymphedema [place] [id number] Social History Tobacco Use Types Packs/Day Years [...] Lifestyle On track No Brilling, (09/21/[address] 12:35 PM EST) [...] or use a book such as Calorie Adalberto (available on Club [employer]) OR [employer] (if you're using a package, it will have calorie and protein info on the back) - The other thing to write down would be grams of protein - 1500 is a good starting point for a ca jeffrey goal documented as of this encounter Procedures Procedure Name Priority Date/Time Associated Diagnosis Comme nts PRG NON-INVASIVE Routine 04/30/2021 12:42 Venous stasis ulcer Results for this PHYSIOLOGIC STUDY PM EDT of right calf limited p rocedure are in EXTREMITY ART 2 LVL to breakdown of skin, the results unspecified whether section. varicose veins present Venous insufficiency of both lower extremities Lymphedema of both lower extremities documented in this encounter Results JESUS ALBERTO, legs, multiple levels (04/30/2021 12:42 PM EDT) Component Value Ref Test Analysis Performed At [facility] Bswift Range Method Time Signature VB Text Department: Vascular Surgery Lab VASCUBASE Report Patient: [id number] (CYN MASTERSON) CPT: 55039 ICD10: I87.2;L97.211;I89.0;I83.012 Referring Physician: AMY BHATIA ?? [...] extremities documented in this encounter Care Teams Conference Service Coordinator Relationship Specialty Start Date End Date lAphonso Murphy MD PCP - General Family Medicine 02/19/[address] [place] [address] documented as of this encounter
--- OUTSIDE RECORDS SUMMARY | 2022-03-05 02:15 | XMS_ITS | Encounter Summary ---
:1955 Author Organization [facility] [place] [address] Care Team Providers Name Role Phone Alphonso Murphy MD Primary Care Provider [phone] Reason for Visit Reason Comments Medication Refill Encounter Details Date Type Department Care Team Description 08/28/2021 Refill General Surgery at [facility] Morgan Blair MD [facility] [place] [address] GENERAL SURGERY [phone] [place], [place] [address] (Wo rk) Social History Tobacco [...] book such as Calorie Adalberto (available on BayRu) OR [employer] (if you're using a package, it will have calorie and protein info on the back) - The other thing to write down would be grams of protein - 1500 is a good starting point for a ca jeffrey goal documented as of this encounter Visit Diagnoses Not on filedocumented in this encounter Care Teams Thermostatic Controls Supervisor Relationship Specialty Start Date End Date Alphonso Murphy MD PCP - General Family Medicine 02/19/[address] [place] [address] [address] [place] [address] documented as of this encounter
--- OUTSIDE RECORDS SUMMARY | 2022-03-05 02:15 | XMS_ITS | Encounter Summary ---
:1955 [place] [address] Care Team Providers Name Role Phone Alphonso Murphy MD Primary Care Provider [phone] Encounter Details Date Type Department Care Team Description 06/10/2021 Telephone Wound Care at [facility] [place] [address] Social History Tobacco Use Types Packs/Day Years Used Date Former Smoker Cigarettes 3 40 Quit: 10/08/19 11 Smokeless Tobacco: Never Used Alcohol Use Standard Drinks/Week Comments No 0 (1 standard drink = 0.6 oz pure alcoho l) Sex Assigned at Date Recorded Not on file documented as of this encounter Miscellaneous Notes Telephone Encounter - Tonya Burton RN - 06/10/2021 10:46 AM Yoselyn: home health called Linh from the patients home health agency called to inform us that the patient complained that her unna boot was too tight and asked if they could remove it. I instructed them to remove the unna boot since the patient was reporting that it was too tight. I spoke with Amy Germain APRN and informed her of the situation. Amy agreed they should remove the unna boot and they should use a dermafitsize G in place of the unna boot. Tonya Burton RN documented in this encounter Plan of Treatment [...] google or use a book such as [employer]brain (available on Chunnel[employer]) OR [employer] (if you're using a package, it will have calorie and protein info on the back) - The other thing to write down would be grams of protein - 1500 is a good starting point for a ca jeffrey goal documented as of this encounter Visit Diagnoses Not on filedocumented in this encounter Care Teams Child Care Provider Relationship Specialty Start Date End Date Alphonso Murphy MD PCP - General Family Medicine 02/19/[address] [place] [address] documented as of this encounter
--- OUTSIDE RECORDS SUMMARY | 2022-03-05 02:15 | XMS_ITS | Encounter Summary ---
:1955 Author Organization [facility] [place] [address] Care Team Providers Name Role Phone Alphonso Murphy MD Primary Care Provider [phone] Encounter Details Date Type Department Care Team Description 04/30/2021 Office Visit Wound Care at [facility] Venou s stasis ulcer of right calf limited to breakdown of skin, unspecified whether varicose veins present; [facility] RN Venous in sufficiency [place] [id number] Social History Tobacco Use Types Packs/Day Years Used Date Former Smoker Cigarettes 3 40 Quit: 10/08/19 11 Smokeless Tobacco: Never Used Alcohol Use Standard Drinks/Week Comments No 0 (1 standard drink = 0.6 oz pure alcoho l) Sex Assigned at Date Recorded Not on file documented as of this encounter Last Filed Vital Signs Vital Sign Reading Time Taken Comments Blood Pressure 144/75 04/30/2021 1:47 PM EDT Pulse 79 04/30/2021 1:47 PM EDT Temperature 36.9 ??C (98.5 ??F) 04/30/2021 1:47 PM EDT Respiratory Rate 16 04/30/2021 1:47 PM EDT Oxygen Saturation 96% 04/30/2021 1:47 PM EDT Inhaled Oxygen Concentration - - Weight - - Height - - Body Mass Index - - documented in this encounter Progress Notes Zoila Templeton RN - 04/30/2021 1:45 PM EDT Images from the original note were not included. Progress Note Reason for Visit: Ms. Masterson is here today for F/U visit R/T RLE venous ulcer. ?? HPI: Radha Masterson is a 65 y.o. [...] antibiotics (Vancomycin)then discharged to home on Cefazolin. Diagnostics: ABIs 04/30/21 RIGHT: No significant lower extremity arterial occlusive disease identifiable at rest. Normal ankle/brachial pressure ratios and ankle Doppler waveforms. ?? LEFT: No significant lower extremity arterial occlusive disease identifiable at rest. Normal ankle/brachial pressure ratios and ankle Doppler waveforms. Type of Wound Venous ulcer: Currently using tubigrips Home Health Agency: Yes [facility] Subjective: Patient denies fever, chills, sweats. Denies nausea, vomiting, loose bowels. Last FSBS: N/A Appetite is good Taking protein supplements: No Activity/Mobility: Chairfast Objective: Vitals: BP 144/75 (BP Location (NBP): Left arm, Patient Position: Sitting, BP Cuff Sizes: Adult (25-34 cm)) Pulse 79 Temp 36.9 ??C (98.5 ??F) (Tympanic) Resp 16 SpO2 96% Erythema yes mild erythema that has receded from the outlined area. Measurements (cm) Right Calf girth 66.0 cm Ankle girth 38.5 cm Wound Location Measurements including undermining/tunneling Drainage Wound bed Brittney wound skin Odor Right Anterior Lower Leg 12.8 cm x 13.5 cm x <0.1 cm Moderate serous 100% pink and red moist tissue Mild erythema, receding from outlined area None PHOTO Treatment: Analgesia: none administered prior to debridement [] Order entered and documented on OCT Non-selective debridement of devitalized tissue using Debrisoft pad/lolly Conservative Sharp Debridement: None due to patient discomfort. Bleeding: No Wound cleansed with normal saline Dressings/wraps applied: Mepilex AG non border secured with Kerlix. A double layer Dermafit, size G,was applied to the right lower extremity for medium tissue support. Pain Reassessment post treatment (0-10): 0 Assessment: Radha Masterson is a 66 y.o. female with RLE venous ulcers is setting of lymphedema and venous insufficiency. ABIs today showed no LEAD. She was recently admitted to the hospital and given IV antibiotics for cellulitis. The erythema on the right lower extremity has receded from the outlined area. She was given a course of oral antibiotics and reports that she is scheduled to complete the course today. We will continue with the application of Mepilex AG foam over the wound beds for its absorptive and antimicrobial properties. This was then secured in place with Kerlix gauze. She continues to have VNA services. We discussed applying a multi layer compression wrap at her next visit if her cellulitis has resolved. At this time, she needs to be able to visualize the area and ensure that the erythema does not extend beyond the outline. She was amenable to the plan. We discussed the importanceof elevating her lower extremities, wearing consistent compression and increasing protein intake to f acilitate wound healing. She will follow up here at the [facility] in one week or sooner if there are any concerns. The patient verbalized understanding of and agreement with the plan. Wound(s) currently progressing Barriers to healing: Comorbidities Plan: -Continue with local wound care. -Patient to finish antibiotics today. -If no issues, apply compression wrap at next week's visit. Follow up: [facility] to [facility] in approximately 1 week. Post Visit Instructions (Home Health Agency and/or patient): Change dressing every 2 days or sooner for 50% or greater strike through drainage. 1. Remove old dressing. 2. Cleanse wound with wound cleanser or normal saline and gauze. 3. Apply skin prep to periwound skin. 4. Cover wound bed with Mepilex Ag non-bordered foam and secure with Kerlix gauze and Medipore tape. 5. Secure edges of dressing with skin prep. Monitor for signs of infection which may include: Fever Sweats Chills Nausea, Vomiting or Diarrhea Unexplained increase in Blood Glucose levels At or around the wound site: Increased pain Swelling or edema Redness Warmth Purulent drainage (thick yellow/green drainage) Malodor Contact [facility] with any above symptoms Tuesday- Tuesday 8:00AM-4:30PM ([phone]). If weekends / holidays / evenings, please report to the Emergency Department. High Protein foods: try to eat 5-6 servings of these per day Beef, chicken, fish Beans, Lentils, peanut butter Turkish and regular yogurt Cheese, eggs Boost, Ensure shakes Protein powder in a smoothie of your choice documented in this encounter Plan of Treatment [...] or use a book such as Calorie Single Cell Technology (available on Playn[employer] Entertainment) OR [place] [employer] (if you're using a package, it will [...] mities documented in this encounter Care Teams Information Technology Coordinator Relationship Specialty Start Date End Date Alphonso Murphy MD PCP - General Family Medicine 02/19/[address] [place] [address] documented as of this encounter
--- OUTSIDE RECORDS SUMMARY | 2022-03-05 02:16 | XMS_ITS | Encounter Summary ---
:1955 Author Organization [facility] [place] [address] Care Team Providers Name Role Phone Alphonso Murphy MD Primary Care Provider [phone] Encounter Details Date Type Department Care Team Description 12/09/2020 TH Visit (TeleHealth) [place] [address] Social History Tobacco Use Types Packs/Day Years Used Date Former Smoker Cigarettes 3 40 Quit: 10/08/19 11 Smokeless Tobacco: Never Used Alcohol Use Standard Drinks/Week Comments No 0 (1 standard drink = 0.6 oz pure alcoho l) Sex Assigned at Date Recorded Not on file documented as of this encounter Progress Notes Sheyla Fajardo RN - 12/09/2020 10:00 AM EDT Telephone call to patient to complete and review PAT Anesthesia Questionnaire. Instructed they will get a pre-op call the Tuesday before the surgery date, to get arrival time to 4W for the surgery alongNPO/clear liquid diet instructions and medication instructions. Expresses a good understanding of this information. Pre-op booklet mailed to patient. To speak with anesthesia provider also. Has not had COVID or COVID symptoms in the past 3 months. documented in this encounter Plan of Treatment [...] google or use a book such as [employer] [place] (available on [employer]) OR Cell[employer]ire (if you're using a package, it will have calorie and protein info on the back) - The other thing to write down would be grams of protein - 1500 is a good starting point for a ca jeffrey goal documented as of this encounter Visit Diagnoses Not on filedocumented in this encounter Care Teams Sports Centre Manager Relationship Specialty Start Date End Date Alphonso Murphy MD PCP - General Family Medicine 02/19/[address] [place] [address] documented as of this encounter
--- OUTSIDE RECORDS SUMMARY | 2022-03-05 02:16 | XMS_ITS | Encounter Summary ---
:1955 Author Organization [facility] Address [address] [place] [address] Care Team Providers Name Role Phone Alphonso Murphy MD Primary Care Provider Reason for Referral Consultation (Urgent) - Closed Specialty Diagnoses / Procedures Referred By Contact Refer red To Contact Cardiology Diagnoses Pulmonary hypertension please re-evaluate (last seen 02/2019) pHTN and HFpEF in patient scheduled for upcoming thyroidectomy 01/05/2021. Patient reports worsening O2 requirement, leg swelling, orthopnea. Last TTE 02/2019. Morales Griffith MD D'Anna, Susan P, [facility] ANESTHESIOLOGY DEPT [place] [address] [place] [address] Fax: Referral ID Status Reason Start Date Expiration Date Visits V isits Requested Authorized [id number] Closed Consult, 12/09/2020 12/09/2021 1 1 Test & Treat Encounter Details Date Type Department Care Team Description 12/09/2020 Orders Only Anesthesiology Morales Griffith, Pulmonary hypertension [facility] [place] [address] ANESTHESIOLOGY [phone] DEPT [place], [place] [address] Social History Tobacco Use Types Packs/Day Years Used Date Former Smoker Cigarettes 3 40 Quit: 10/08/19 11 Smokeless Tobacco: Never Used Alcohol Use Standard Drinks/Week Comments No 0 (1 standard drink = 0.6 oz pure alcoho l) Sex Assigned at Date Recorded Not on file documented as of this encounter Plan of Treatment Scheduled Referrals Name Type Priority Associated Diagnoses Order S chedule Referral to Outpatient Referral Routine Pulmonary Ordered: Cardiology hypertension 12/09/2020 documented as of this encounter Goals Goal [...] (09/21/2019 12:35 PM EST) N o Dimple Adams, FOREST Note: Formatting of this note might be [...] google or use a book such as [employer] (available on Cloudbuild) OR EarDish (if you're using a package, it will have calorie and protein info on the back) - The other thing to write down would be grams of protein - 1500 is a good starting point for a ca jeffrey goal documented as of this encounter Visit Diagnoses Diagnosis Pulmonary hypertension Other chronic pulmonary heart diseases documented in this encounter Care Teams Wool Dyer Relationship Specialty Start Date End Date Alphonso Murphy MD PCP - General Family Medicine 02/19/[address] [place] [address] documented as of this encounter
--- OUTSIDE RECORDS SUMMARY | 2022-03-05 02:16 | XMS_ITS | Encounter Summary ---
:1955 Author Organization [facility] [place] [address] Care Team Providers Name Role Phone Alphonso Murphy MD Primary Care Provider [phone] Encounter Details Date Type Department Care Team Description 06/18/2020 Telephone Orthopaedics at [facility] Osmin Castañeda [facility] Ron coyle Jr., [place] [address] [facility] [phone] ORTHOPAEDIC SURG [place], [place] [address] (Wo rk) Social History Tobacco Use Types Packs/Day Years Used Date Former Smoker Cigarettes 3 40 Quit: 10/08/19 11 Smokeless Tobacco: Never Used Alcohol Use Standard Drinks/Week Comments No 0 (1 standard drink = 0.6 oz pure alcoho l) Sex Assigned at Date Recorded Not on file documented as of this encounter Miscellaneous Notes Telephone Encounter - Khloe Billy Omar - 06/18/2020 1:23 PM EST Radha called and said she wanted an appointment to follow up with Dr. Castañeda due to no pain relief after trying an injection. Appointment scheduled. She comes by [facility] [employer]. documented in this encounter Plan of Treatment [...] down Lifestyle On track (09/21/2019 Dimple Augustin, FOREST your foods 12:35 PM EST) Note: Formatting of this note might be d ifferent from the original. - use the notebook - can you add some calorie information: Either google or use a book such as [employer] (available on [employer]) OR [employer] (if you're using a package, it will have calorie and protein info on the back) - The other thing to write down would be grams of protein - 1500 is a good starting point for a ca jeffrey goal documented as of this encounter Visit Diagnoses Not on filedocumented in this encounter Care Teams Card Tape Converter Operator Relationship Specialty Start Date End Date Alphonso Murphy MD PCP - General Family Medicine 02/19/[address] [place] [address] documented as of this encounter
--- OUTSIDE RECORDS SUMMARY | 2022-03-05 02:16 | XMS_ITS | Encounter Summary ---
:1955 Author Organization [facility] Address [address] [place] [address] Care Team Providers Name Role Phone Alphonso Murphy MD Primary Care Provider [phone] Reason for Referral Consultation (Urgent) - Closed Specialty Diagnoses / Procedures Referred By Contact Refer red To Contact Sleep Center Diagnoses Class 3 obesity with alveolar hypoventilation, serious comorbidity, and body mass index (BMI) greater than or equal to 70 in adult Supplemental oxygen dependent Mike Robles MD [facility] D R [address] [place] [address] [place] [address] Referral ID Status Reason Start Date Expiration Date Visits V isits Requested Authorized [id number] Closed Consult, 11/06/2020 11/06/2021 1 1 Test & Treat Reason for Visit Consultation (Routine) - Closed Specialty Diagnoses / Procedures Referred By Contact Refer tk To Contact Pulmonology Diagnoses Multinodular goiter Lisa Singh MD [facility] Pulmonology 5c [facility] D R [address] [place] [address] [place] [address] Referral ID Status Reason Start Date Expiration Date Visits V isits Requested Authorized [id number] Closed Consult, 09/02/2020 09/02/2021 1 1 Test & Treat Encounter Details Date Type Department Care Team Description 11/06/2020 Office Visit Pulmonology at [facility] Travis, Class 3 obesity with alveola r hypoventilation, serious comorbidity, and body mass index (BMI) greater than or equal to 70 in adult; [facility] Mike Nelson MD Supplemental oxygen dependent; Drive [facility] Former smoker; [place], [place] CENTER 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 ypoventilation disorder; [id number] PULMONARY Multinodular goiter; [phone] MEDICINE Dysphagia, unspecified type; [place], [place] Chronic respira tory failure with hypoxia and hypercapnia [address] Social History Tobacco Use Types Packs/Day Years Used Date Former Smoker Cigarettes 3 40 Quit: 10/08/19 11 Smokeless Tobacco: Never Used Alcohol Use Standard Drinks/Week Comments No 0 (1 standard drink = 0.6 oz pure alcoho l) Sex Assigned at Date Recorded Not on file documented as of this encounter Last Filed Vital Signs Vital Sign Reading Time Taken Comments Blood Pressure 159/75 11/06/2020 10:23 AM EDT Pulse 92 11/06/2020 10:23 AM EDT Temperature 37.7 ??C (99.8 ??F) 11/06/2020 10:23 AM EDT Respiratory Rate 32 11/06/2020 10:23 AM EDT Oxygen Saturation 95% 11/06/2020 10:23 AM EDT Inhaled Oxygen Concentration - - Weight 190.5 kg (420 lb) 11/06/2020 10:23 AM EDT Height 160 cm (5' 3) 11/06/2020 10:23 AM EDT Body Mass Index 74.4 11/06/2020 10:23 AM EDT documented in this encounter Patient Instructions Patient InstructionsTanMike block MD - 11/06/2020 10:00 AM EDT It was a pleasure seeing you today. Here is a brief reminder of what we discussed: ??? I will see what our breathing tests look like, but I doubt we will see anything that would tell me that you shouldn't have this surgery that you need ??? I am not certain that you truly have COPD. If so, it may be mild, but I think most of your breathing issues and need for oxygen are related to your weight and obesity. The most important thing we can work on after your surgery is weight loss, your mental health, and making sure you are getting theright treatment at night for your sleep apnea and obesity hypoventilation syndrome (I suspect you dont breath enough at night which causes your oxygen to decrease and your carbon dioxide levels to increase. Summary of the plan going forward: ??? Get bloodwork today ??? I referred you to our sleep medicine clinic for an evaluation to help figure out what breathing machine settings you should use at night and if you need a different machine ??? I will send my report to your other doctors and surgeon later today or tomorrow morning. ??? Follow up with me in about 3-4 months after your surgery and sleep testing. Please do not hesitate to get in touch with my office with any questions or if new issues should arise before our next scheduled visit. You can reach me by phone ([phone]) or by sending a [employer] message. Mike Coughlin. MD [place] documented in this encounter Progress Notes Mike Robles MD - 11/06/2020 10:00 AM EDT Images from the original note were not included. [facility] Section of Pulmonary and Critical Care Medicine Outpatient Consultation - Initial Visit Date of Encounter: 11/06/2020 Referring Provider: Lisa Singh MD [facility] [place] [address] PCP: Alphonso Murphy MD Reason for Evaluation: Increased need for supplemental oxygen and pre-operative risk assessment This was a [id number] office visit. History of Present Illness: Radha Masterson is a 65 y.o. with a history of morbid obesity (BMI 73) with reported DAVID and, I presume, OHS on nocturnal BiPAP with prior PFTs indicating obesity related ventilatory impairments without clear airway obstruction (making COPD less likely and obesity related atelectasis and V/Q mismatch more likely), prior PE, and PH (presumed due to DAVID/OHS and hypoxemia) and an enlarging multinodular goiter that is beginning to cause compression of her trachea. Recently seen by her PCP and noted need toincrease supplemental oxygen. She is referred for urgent evaluation of her hypoxemia and need for surgery. Per review of recent notes, has had compressive symptoms of dysphagia and globus sensation going back to at least August. Biopsy of her MNG was deferred due to body habitus and breathing pattern. Dr. Singh of Endocrine Surgery has recommended thyroidectomy and surgery is being planned. Re: her pulmonary history - describes having dyspnea for many years and was first put on supplemental oxygen roughly 10 years ago after being hospitalized for a PNA. States she gets PNA about 2-3x per year that often requires hospitalization. She states she had a PNA vs. Bronchitis 1 month ago and comp leted a course of antibiotics and steroids. At the time was having oxygen and lower oxygen levels. Smoked 2-3 packs per day since age 10 and quit around age 41. At baseline she uses 3LNC during the day and 5L at night bled through her BiPAP machine. She has not seen sleep medicine for a few years. Initially was on CPAP, but it was insufficient and has now been on BiPAP. She feels her home machine is not able to provide adequate pressure to support her breathing and that when she is hospitalized, machines used in that setting use higher IPAP which she finds more helpful. She previously was seen in Pulmonary Clinic at [facility] more than 5 years ago. PFTs at that time time were more suggestive of obesity related ventilatory impairments than COPD with preserved FEV1/VC ratio, normal TLC, and very low ERV.Her DL was low but normalized when adjusted for alveolar volume. Most recently she has been on LAMA controller and up to 4x daily bronchodilators via nebulizer or MDI that she feels has been somewhat he lpful, but she is very limited in her mobility - only able to go from bed to commode which is a struggle and using a motorized wheelchair outside of the house. Today she is on 3L NC with SpO2 in the mid 90% which is her baseline oxygen use. She continues to report globus sensation and feeling of difficulty clearing mucous at times. She has dysphagia to solid foods and has been eating a soft diet due to this. Symptoms are worse when supine. Over the years she has had many CT scans of the chest, often with PE protocol. There was question raised of PE years back, but it does not seem that this was every confidently diagnosed. Lung parenchyma on her scans has never shown emphysema or thickened airways to suggest chronic bronchitis. She has had basilar atelectasis and at times more consolidative features perhaps when she has had PNA. TTE [id number] was a limited study but showed mild LVH with hyperdynamic LV and moderate PH with estimated RVSP of 56. TTE from OSH in 2019 again showed normal biventricular function, and PASP 45-50. She was previously seen in weight loss clinic to consider bariatric surgery, but she says that she has not been able to connect with that clinic since the COVID pandemic began, which has been disappointing. Review of Systems: Denies fevers, chills, diarrhea, abdominal pain, eye pain, mouth ulcers, joint pain, leg swelling, and rashes. The remainder of a 12-point ROS was negative unless otherwise stated inthe HPI. Respiratory symptoms as per HPI. Past Medical and Surgical History: Past Medical History: Diagnosis Date ??? JODY (acute kidney injury) 01/16/2017 ??? COPD (chronic obstructive pulmonary disease) ??? Depression ??? Hypertension ??? DAVID treated with BiPAP ??? PE (pulmonary thromboembolism) Past Surgical History: Procedure Laterality Date ??? [...] / LEFT/AMAN LCCK/AMAN LPS/ANTIBIOTIC CEMENT ProcedureDate: 11/23/2005 Family History: Family History Problem (# of Occurrences) Relation (Name,Age of Onset) Diabetes (5) Mother, Maternal Aunt, Paternal Aunt, Maternal Grandmother, Paternal Grandmother Social and Occupational History: Smoking history: 2-3 packs per day x 40 years; quit 2010 Lives with a friend who rents a room from her. Grandchildren are with her in the summer. Current Medications Current Outpatient Medications: ??? aspirin 325 mg Tablet, Take 325 mg by mouth Daily., Disp: , Rfl: ??? ascorbic acid, vitamin C, (VITAMIN C) 1,000 mg Tablet, Take by mouth., Disp: , Rfl: ??? silver sulfADIAZINE (SILVADENE) 1 % Cream, Apply topically Twice daily., Disp: , Rfl: ??? ergocalciferol (Vitamin D2) 50,000 unit Capsule, TAKE 1 CAPSULE BY MOUTH 2 TIMES A WEEK FOR 24 DOSES, Disp: 24 capsule, Rfl: 0 ??? gabapentin (Neurontin) 100 mg Capsule, TK 1 C PO BID, Disp: , Rfl: ??? Mag 64 64 mg Tablet, Delayed Release (E.C.), TAKE 1 TABLET BY MOUTH ONCE DAILY, Disp: , Rfl: ??? Incruse Ellipta 62.5 mcg/actuation Disk with Device, INL 1 PUFF PO QD, Disp: , Rfl: ??? metFORMIN (Glucophage) 500 mg Tablet, Take 2 tablets by mouth 2 times daily (with meals)., Disp:60 tablet, Rfl: ??? citalopram (CELEXA) 20 mg Tablet, Take 20 mg by mouth daily., Disp: , Rfl: ??? ALBUTEROL INHL, Inhale into the lungs., Disp: , Rfl: ??? buPROPion (WELLBUTRIN) 100 mg Tablet, Take by mouth., Disp: , Rfl: ??? busPIRone (BUSPAR) 5 mg Tablet, , Disp: , Rfl: ??? potassium chloride (MICRO-K) 10 mEq Capsule, Sustained Release, , Disp: , Rfl: ??? clotrimazole (LOTRIMIN) 1 % Cream, apply topically three times a day, Disp: , Rfl: 0 ??? fluticasone propionate (FLONASE) 50 mcg/actuation [place], Suspension, SHAKE LQ AND U 1 SPR IEN D,Disp: , Rfl: ??? NYSTOP Powder, apply topically twice a day if needed, Disp: , Rfl: 0 ??? furosemide (LASIX) 40 mg Tablet, 80 mg daily., Disp: , Rfl: 1 ??? triamcinolone (KENALOG) 0.1 % Cream, apply topically to RASH ON LEGS twice a day, Disp: , Rfl: 0 ??? PROAIR HFA 90 mcg/actuation HFA Aerosol Inhaler, Inhale 1-2 puffs into the lungs every 6 hours as needed., Disp: , Rfl: 1 ??? ipratropium-albuterol (DUONEB) 0.5 mg-3 mg(2.5 mg base)/3 mL Solution for Nebulization, Take 3 mLs by nebulization every 6 hours as needed., Disp: , Rfl: 0 ??? predniSONE (Deltasone) 50 mg Tablet, Take one tablet by mouth at 13 hours, 7 hours and 1 hour prior to scheduled exam (Patient not taking: Reported on 11/06/2020), Disp: 3 tablet, Rfl: 0 Allergies: Allergies Allergen Reactions ??? Iodinated Contrast Media ??? Iodine And Iodide Containing Products CIS - Rash, CIS - Rash ??? Morphine Rash ??? Oxycodone Rash Physical Examination: BP 159/75 Pulse 92 Temp 37.7 ??C (99.8 ??F) (Temporal) Resp (!) 32 Ht 160 cm (5' 3) Wt (!) 190.5 kg (420 lb) SpO2 95% BMI 74.40 kg/m?? on 3Lpulse O2 General: Morbidly obese, NAD HEENT: No pharyngeal erythema or exudates, no thrush, no scleral icterus, no conjunctival pallor, crowded upper airway, pain to palpation of the L aspect of the thyroid Cardiovascular: Regular rate, normal S1 and S2, no murmurs Respiratory: No increased work of breathing, good air movement throughout, faint end expiratory wheezing, more prominent wheeze seems to come from the upper airway, no crackles Abdomen: Soft, non-tender Extremities: B/L LE edema, largely non pitting, with skin thickening from chronic venous stasis likely Skin: No rashes Neurologic: Alert, oriented, and communicative. No facial asymmetry or dysarthria. Symmetric gaze. Psychologic: Normal mood and affect. Pertinent Diagnostics - I personally reviewed the following with my comments included below: Labs: 11/06/20: WBC 6.7, Hgb 13.8, normal differential; CO2 28, Cr 0.56 09/10/19 - CO2 28, Cr 0.59, AST 32, ALT 38, TSH 1.38 01/21/2017 Hgb 10.1 Chest Imaging: I personally reviewed outside CT scans from 01/10/17 and 11/29/18 with my comments in HPI. CT Chest 11/29/18 showed significant motion artifact and basilar atelectasis without interstitial lung disease or emphysema. No PE at that time. CT Chest PE protocol in December 2016 performed at an outside institution also shows normal lung parenchyma other than likely basilar atelectasis and read comments on question of defect in a single pumonaryartery branch in the LLL that could represent an embolus. It appears she has had many CT scans looking for PE over several years and findings have only ever been equivocal and presumed positive. She has not demonstrated emphysema or interstitial lung disease on these scans with most notable findings being occasional small effusion and atelectasis. CT Neck on 09/09/20 showed enlarged multinodular goiter with minimal indentation of L tracheal wall by enlarged thyroid lobe. Pulmonary Function Tests: Date FVC FVC % FEV1 FEV1 % FEV1/VC TLC TLC % DLCO DLCO% Comments 11/11/14 2.23 68 1.77 69 *SVC 2.36 (71) FEV1/SVC = 75 4.54 89 15.27 (uncorr) 71 (uncorr) RV 123%, RV/TLC 137%, ERV 19% DL/VA 107% Interpretation of PFTs: Low FVC with preserved FEV1/VC ratio with normal lung volumes can be consistent with obstructive disease which would be mild, but her flow volume loop and very reduced ERV are more suggestive of obesity or neuromuscular weakness - likely obesity in her case. Echocardiograms: TTE 2019 - estimated PASP 45-50 with normal biventricular function TTE in 2017 - technically limited but showed mild LVH with hyperdynamic function (EF75%). RV probably normal in size and function. No significant valvular disease. Estimated RVSP 56 (RA3) indicated moderate PH Sleep Testing: Not available to review Diagnoses Morbid Obesity Obesity Hypoventilation Syndrome DAVID Pulmonary Hypertension - largely group III Supplemental oxygen dependence Multinodular goiter with tracheal compression Dysphagia Chronic respiratory failure with hypercapnia and hypoxemia Impression: While Ms. Masterson has a significant smoking history, review of her past PFTs have been more suggestiveof obesity related ventilatory issues than from true fixed obstructive airways disease. I suspect much of her need for supplemental oxygen is due to V/Q mismatching and dependent atelecatsis due to restrictive chest wall motion from significant obesity (BMI 73) and presumed chronic hypercarbia with borderline elevated serum bicarbonate over the years. I worry that she may not be getting adequate treatment for DAVID/OHS and she should have a repeat sleep study to rule in OHS and for PAP titration as she may need true nocturnal ventilation rather than standard BiPAP if she is truly hypoventilating. If she has some degree of obstructive lung disease from prior smoking, I think that is mild. Certainly no emphysema or ILD on serial CT scans over the years. The wheeze she often hears may be more from upper airway issues and redundant soft tissue. Her oxygen use today is not different from her usual baseline. Re: surgery - she is at increased/intermediate risk for post-operative pulmonary complications including respiratory failure, PNA, and atelectasis given report of a recent infection about a month ago (ARISCAT score of 28 - 13% risk). This risk will go down as that becomes more distant. Using the Guptacalculator she has an estimated ~6% risk of mechanical ventilation >48 hours after surgery due tobeing partially dependent and ASA score 3-4. That said, this is a surgery that she clearly needs dueto progressive and symptomatic upper airway compression and dysphagia. There is no spirometric cutoff level that precludes necessary surgery - she is to have repeat PFTs today. It will be very important for anesthesiologists and post-operative area to be aware of underlying DAVID and OHS in terms of approaching her ventilation and post-extubation period where she will likely need non-invasive ventilation as she recovers from anesthesia. Recommendations: -Re: Surgery - recommend low VT ventilation for all patients and close attention should be paid to underlying DAVID/OHS in post-operative setting. May need period of NIV after surgery while recovering from anesthesia. Would use her home BiPAP settings as a guide - unfortunately I am not aware of these settings other than 5L supplemental oxygen that she reports. Could contact her prior sleep clinic. -She should get other routine care to reduce risk of post-operative pulmonary complications such as incentive spirometry, VTE PPx, adequate pain control, early mobilization, and airways clearance -I would continue her home long-acting bronchodilator therapy and use nebulized bronchodilators as necessary, though I am not certain her use at home is congruent with her degree of underlying obstructive airways disease Re: other issues -encouraged her to re-engage with weight loss/wellness clinic as weight loss will be the lynchpin toiproving many of her chronic conditions and certainly her pulmonary disease, hypoventilation, and related oxygen requirement -refer to sleep medicine for updated evaluation for DAVID/OHS and probable need for PAP titration and nocturnal NIV -attempted to get ABG to see baseline PCO2 however was unable to be done; will get VBG for now -Continue other home medications -F/u in 3-4 months after surgery and sleep medicine evaluation I spent >50% of this 75 minute encounter on 11/06/2020 counseling and coordinating care as detailed in my note above. Mike Robles MD [facility] [employer] communications professor Pulmonary and Critical Care Medicine [place] [phone] [email or web address] documented in this encounter Plan of Treatment Scheduled Referrals Name Type Priority Associated Diagnoses Order S chedule Referral to Sleep Outpatient Referral Routine Class 3 obesity with Ordered: Disorders Center alveolar 11/06/2020 hypoventilation, serious comorbidity, and body mass index (BMI) greater than or equal to 70 in adult Supplemental oxygen dependent documented as of this encounter Goals Goal [...] writing down Lifestyle On track (09/21/[address] your foods 12:35 PM EST) Note: Formatting of this note might be d ifferent from the original. - use the notebook - can you add some calorie information: Either google or use a book such as [employer] (available on [employer]) OR Reissued (if you're using a package, it will have calorie and protein info on the back) - The other thing to write down would be grams of protein - 1500 is a good starting point for a ca jeffrey goal documented as of this encounter Procedures Procedure Name Priority Date/Time Associated Diagnosis Comme nts BLOOD GAS VENOUS Routine 11/06/2020 3:29 PM Resul ts for this ([facility]) EDT procedure are i n the results section. HEMOGRAM Routine 11/06/2020 12:20 PM Results for this EDT procedure are i n the results section. DIFFERENTIAL, Routine 11/06/2020 12:20 PM Results for this AUTOMATED EDT procedure are i n the results section. HC CBC,PLT & AUTO Routine 11/06/2020 12:20 PM Class 3 obesity with DIFF EDT alveolar hypoventilation, serious comorbidity, and body mass index (BMI) greater than or equal to 70 in adult Supplemental oxygen dependent BASIC METABOLIC Routine 11/06/2020 12:20 PM Class 3 obesity wi th Results for this PANEL (NON-FASTING) EDT alveolar procedur e are in hypoventilation, the results serious comorbidity, section . and body mass index (BMI) greater than or equal to 70 in adult Supplemental oxygen dependent documented in this encounter Results (ABNORMAL) Blood Gas Venous (11/06/2020 3:29 PM EDT) P athologist Signature pH Danie 7.35 7.32 - [facility] 7.42 [facility] pCO2 Danie 54 (H) 41 - 51 [facility] pO2 Danie 29 25 - 40 [facility] HCO3 Danie 29.1 mmol/L [facility] BE Danie 3.4 mmol/L [facility] Hgb Blood Gas 14.8 11.7 - [facility] 15.5 gm/dL [facility] Comment: Interpret with caution, 1 ml syringe may give rise to occasional discrepant Hgb results.11/06/20 15:37 O2HB Danie 59.4 % [facility] COHB Danie 1.3 % [facility] Comment: Nonsmokers: 0.5-1.5% COHB Smokers: Variable, but usually less than 10% Toxic: 20-30% COHB Lethal: Greater than 60% COHB METHB Danie 0.3 <=1.5 % [facility] Na Whole Blood 141 135 - 145 mmol/L [facility] K Whole Blood 3.9 3.5 - 5.0 mmol/L [facility] Comment: Please note: Patients with WBC >100,000 may have falsely elevated Potassium levels. Contact the Clinical Chemistry L aboratory if there are any questions. ICa Whole Blood 1.19 1.15 - 1.33 mmol/L [facility] Comment: Note: ??Total bilirubin higher than 20 m g/dL may lead to falsely low ionized calcium. CL Whole Blood 103 98 - 107 mmol/L [facility] Gluc Whole Bld 93 65 - 199 mg/dL [facility] Comment: Diabetes: >=200 mg/dL plus symp toms Lactate WB 1.4 0.5 - 2.2 mmol/L [facility] BGas Source Venous [facility] Specimen Anatomical Collection Method Collection Time Receive d Time (Source) Location / / Volume Laterality Blood specimen Venous Draw / 11/06/2020 3:29 PM 2020 3:33 (specimen) Unknown EDT PM EDT Resulting Agency Comment Spec In Lab Mike Robles MD CHEMISTRY ORDERABLES Performing Organization Address City/State/[place] [address] Differential, Automated (11/06/2020 12:20 PM EDT) P athologist Signature Neutrophils % 60.9 % [facility] Neutr Abs (ANC) 4.08 1.70 - [facility] 6.10 [facility] x10(3)/[facility] Lymphocytes % 25.6 % [facility] Lymphocytes Abs 1.7 0.9 - 3.2 [facility] x10(3)/[facility] Monocytes % 7.7 % [facility] Monocyte Abs 0.5 0.3 - 0.9 [facility] x10(3)/[facility] Eosinophils % 5.1 % [facility] Eosinophils Abs 0.3 0.0 - 0.4 [facility] x10(3)/[facility] Basophils % 0.4 % [facility] Basophils Abs 0.0 0.0 - 0.1 [facility] x10(3)/[facility] Immature Gran % 0.30 % [facility] Comment: Immature granulocytes(IG's)percentage an d absolute count will include metamyelocytes, myelocytes, and promyelo cytes. Blood smears from CBCs yielding IG's will be scanned manually for concor dance. If this scan disagrees with the automated IG or if promyelocytes are not ed, a manual differential will be performed. Surekha Gran Abs 0.02 0.00 - 0.04 x10(3)/[facility] [facility] Specimen Anatomical Collection Method Collection Time Receive d Time (Source) Location / / Volume Laterality Blood specimen 11/06/2020 12:20 1 (specimen) PM EDT 12:25 PM EDT Resulting Agency Comment Spec In Lab Mike Robles MD HEMATOLOGY ORDERABLES Performing Organization Address City/State/[place] [address] Hemogram (11/06/2020 12:20 PM EDT) athologist Signature WBC 6.7 4.0 - 9.5 [place] x10(3)/[facility] LABORATORY RBC 4.68 4.00 - [place] 5.21 [facility] x10(6)/[facility] LABORATORY Hemoglobin 13.8 11.7 - [place] 15.5 gm/dL [facility] Hematocrit 41.5 35.7 - [place] 45.8 % [facility] MCV 88.7 82.6 - [facility] JAY 94.4 [facility] LABORATORY MCH 29.5 27.1 - [employer] 32.0 pg [facility] MCHC 33.3 31.7 - [place] 35.0 gm/dL [facility] Platelets 238 145 - 357 [facility] x10(3)/[facility] LABORATORY RDWSD 44.4 37.0 - [place] 46.0 [facility] LABORATORY RDWCV 13.6 11.5 - [place] 14.1 % [facility] MPV 11.1 7.6 - 12.9 [place] [facility]ORY nRBC % Auto 0.0 % [facility]ORY nRBC Abs Auto 0.000 0.000 - [place] 0.000 [facility] x10(3)/[facility] LABORATORY Specimen Anatomical Collection Method Collection Time Receive d Time (Source) Location / / Volume Laterality Blood specimen 11/06/2020 12:20 1 (specimen) PM EDT 12:25 PM EDT Resulting Agency Comment Spec In Lab Mike Robles MD HEMATOLOGY ORDERABLES Performing Organization Address City/State/[place] [address] (ABNORMAL) Basic Metabolic Panel (non-fasting) (11/06/2020 12:20 PM EDT) athologist Signature Glucose Lvl 95 65 - 199 [facility] mg/dL [facility] Comment: Diabetes: >=200 mg/dL plus symp toms BUN 17 8 - 18 mg/dL [facility] Creatinine 0.56 (L) 0.70 - 1.20 mg/dL [facility] Sodium 140 135 - 145 mmol/L [facility] Potassium 4.1 3.5 - 5.0 mmol/L [facility] Comment: Please note: ??Patients with WBC >100,00 0 may have falsely elevated Potassium levels. ??For accurate Potassium quantif ication in these patients send serum separator tube (gold top) for subsequent determinations. ??Contact the Clinical Chemistry Laboratory if there are any qu estions. Chloride 105 98 - 107 mmol/L [facility] CO2 28 22 - 31 mmol/L [facility] Anion Gap 7 5 - 15 mmol/L [facility] Calcium 8.6 8.5 - 10.5 mg/dL [facility] Estimated GFR 99 >=60 mL/min/1.73 m?? [facility] Comment: This patient? 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, serious comorbidity, and body mass index (BMI) greater than or equal to 70 in adult Supplemental oxygen dependent Dependence on supplemental oxygen Former smoker Personal history of tobacco use, present ing hazards to health 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 ypoventilation disorder Other chronic pulmonary heart diseases Multinodular goiter Nontoxic multinodular goiter Dysphagia, unspecified type Chronic respiratory failure with hypoxia and hypercapnia documented in this encounter Care Teams Umbrella Frame Maker Relationship Specialty Start Date End Date Alphonso Murphy MD PCP - General Family Medicine 02/19/16 [address] [place] [address] documented as of this encounter
--- OUTSIDE RECORDS SUMMARY | 2022-03-05 02:16 | XMS_ITS | Encounter Summary ---
:1955 Author Organization [facility] [place] [address] Care Team Providers Name Role Phone Alphonso Murphy MD Primary Care Provider [phone] Encounter Details Date Type Department Care Team Description 06/24/2020 Orders Only Orthopaedics at [facility] Maddy, Carpal tunnel [facility] Osmin Velasquez Jr., [place] [address] [address] [phone] ORTHOPAEDIC SURGERY [place], [place] [address] Social History Tobacco Use Types [...] book such as Calorie Adalberto (available on [employer]) OR PICS Auditing (if you're using a package, it will have calorie and protein info on the back) - The other thing to write down would be grams of protein - 1500 is a good starting point for a ca jeffrey goal documented as of this encounter Visit Diagnoses Diagnosis Carpal tunnel syndrome on right Carpal tunnel syndrome documented in this encounter Care Teams Oil Extractor Relationship Specialty Start Date End Date Alphonso Murphy MD PCP - General Family Medicine 02/19/[address] [place] [address] [address] [place] [address] documented as of this encounter
--- OUTSIDE RECORDS SUMMARY | 2022-03-05 02:16 | XMS_ITS | Encounter Summary ---
:1955 Author Organization [facility] Address [address] [place] [address] Care Team Providers Name Role Phone Alphonso Murphy MD Primary Care Provider Encounter Details Date Type Department Care Team Description 12/23/2020 Orders Only Cardiology at [facility] Esther Llanes Chronic heart failure [facility] OZ Nelson with pres [place] [id number] Social History Tobacco Use Types Packs/Day Years [...] beverages Lifestyle On track Hattie Adams, (09/21/2019 Dmiple Hou, RD 12:35 PM EST) Note: Formatting [...] google or use a book such as [employer] (available on [employer]) OR [employer] (if you're using a package, it will have calorie and protein info on the back) - The other thing to write down would be grams of protein - 1500 is a good starting point for a ca jeffrey goal documented as of this encounter Results EKG 12 Lead (01/01/2021 9:10 AM EDT) Component Value Ref Range Test Analysis Performed Pathologis t Method Time At Signature Ventricular rate 79 BPM MUSE SYSTEM Atrial Rate 79 BPM MUSE SYSTEM P-R Interval 176 ms MUSE SYSTEM QRS Duration 96 ms MUSE SYSTEM Q-T Interval 414 ms MUSE SYSTEM QTC Calculated 474 ms MUSE SYSTEM (Bezet) Calculated P [place] 70 degrees MUSE SYSTEM Calculated R [place] 68 degrees MUSE SYSTEM Calculated T [place] 35 degrees MUSE SYSTEM INTERPRETATION Normal sinus rhythm MUSE SYSTEM Normal ECG When compared with ECG of 21-MAY-2019 15:55, No significant change was found Confirmed by MD CONCHA, MARGARET ([id number]) on 01/02/2021 4:16:24 PM Specimen Anatomical Collection Method Collection Time Receive d Time (Source) Location / / Volume Laterality 01/01/2021 9:10 AM 4:16 EDT PM EDT Tex Edwards MD ECG ORDERABLES Performing Organization Address City/State/ZIP Code Phon e Number MUSE SYSTEM documented in this encounter Visit Diagnoses Diagnosis Chronic heart failure with preserved eje ction fraction documented in this encounter Care Teams Regional Sales Associate Relationship Specialty Start Date End Date Alphonso Murphy MD PCP - General Family Medicine 02/19/[address] [place] [address] documented as of this encounter
--- OUTSIDE RECORDS SUMMARY | 2022-03-05 02:16 | XMS_ITS | Encounter Summary ---
:1955 [place] [address] Care Team Providers Name Role Phone Alphonso Murphy MD Primary Care Provider [phone] Reason for Visit Auth/Cert Specialty Diagnoses / Procedures Referred By Contact Refer red To Contact Diagnoses Multinodular goiter MULTINODULAR GOITER Procedures PRO THYROIDECTOMY=SUBSTERNAL, TRANSCERV PRG EMG, LARYNX PRG US GUIDE INTRAOP THYROIDECTOMY, INCL. SUBSTERNAL, CERVICAL APPROACH (WRVU 17.62) FACIAL NERVE MONITORING, SETUP LARYNGEAL (WRVU 1.57) ULTRASONIC GUIDANCE, INTRAOP (WRVU 1.2) Referral ID Status Reason Start Date Expiration Date Visits Requ ested Visits Authorized [id number] 1 1 Encounter Details Date Type Department Care Team Description 03/03/2021 Anesthesia Event Main Operating Room Jose C Castillo MD [facility] [place] [address] [facility] Morales Griffith MD [facility] [address] [phone] ([place] [address] Anesthesia Record Procedure Summary Procedure Name Responsible Anesthesia Start Anesthesia Stop Time Anesthesiologist Time THYROIDECTOMY, Jose C Forde MD 03/03/21 0742 03/03/21 1210 INCL. SUBSTERNAL, CERVICAL APPROACH (WRVU 17.62) (Bilateral Neck) Events Date Time Event Comment 03/03/2021 0728 0742 Start 0745 AN Verify 0745 An Start Data 0751 An Induction 0752 An Intubation 0815 Quick Note BP cuff disconne cted during arterial line placement. Other vitals stable, appropriate ETCO2. Pulsatile radial artery noted on ultrasound. Left radial arterial line ultimately place d with success, though difficult. 0834 Anesthesia Ready 0850 Procedure Start 1054 Quick Note Valsalva 1059 Quick Note Valsalva 1140 Extubation/LMA Out 1159 an stop data 1209 Recovery or ICU Handoff Patient care was transferred to the destination unit staff after review of the patient's medica l history, current anesthetic/surgi michel status and plan, according to the Provider Handoff Checklist. 1210 Stop Name Total IV Lidocaine 100 mg Propofol 180 mg Rocuronium 20 mg PHENYLephrine 640 mcg ePHEDrine 45 mg Ondansetron 8 mg Dexamethasone 4 mg Succinylcholine 200 mg ceFAZolin (Ancef) 3 g in dextrose 5% 109 mL infusion 3 g PHENYLephrine INF 13,950 mcg Propofol INF 2,289.76 mg REMIfentanil INF 6.3 mg Albuterol Inhaler 8 puff acetaminophen IV 1,000 mg Sugammadex 200 mg lactated ringers infusion 900 mL Lactated Ringers 500 mL Agents Name O2 Air N2O Sevoflurane (et) Blood No blood administrations on file. Lines, Drains, and Airways Type Details Placement Removal Arterial Line radial artery, left; 20 03/03/21 0855 by 1 1200 by gauge; Ultrasound Mary Ghosh RN Guidance; MD Maurisio; Removed at bedside by MD Ene; catheter not patent, removed per policy; 03/03/21; 1200 PIV 09/09/20; 0820; median 09/09/20 0820 by 03/04/21 1208 by cubital vein (antecubital Keya Holguin Charlotte A, RN fossa), right; 20 gauge; keya holguin; complained of discomfort; 2; median cubital vein (antecubital fossa), right, cephalic vein (lateral side of arm), right; iv was called to treat infiltrate radiologist examined patitents arm/ warm compress applied; 03/04/21; 1208 PIV 09/09/20; 0830; metacarpal 09/09/20 0830 by 02/13 09/04 1208 by vein (top of hand), left; Kenneth Lindquits, Mary Toure RN [id number] catheter system; 22 gauge; distraction, intradermal injection, tolerated well; 03/04/21; 1208 ETT Mask Ventilation: Not 03/03/21 0752 by Barr, 1145 by Attempted (0); ETT Type: DO Davina Bran Sandra L, RN Cuffed, Oral, NIM; ETT Size: 6 mm; Indirect:Video (CMAC D Blade); Notes: Pre-O2, Asleep; Attempts: 1; Laryngoscopy Grade: 1; ETT Placement Verified By: Capnometry, Visual; Secured at Teeth: 22 cm; Inserted by: Cortney, PIV 03/03/21; 0804; cephalic 03/03/21 0804 by Barr, 03/04/21 1208 by vein (lateral side of DO Zelalem Bran Cha rlotte A, RN arm), right; gzjr-kob-xpatxy catheter system; Anatomical Landmarks; 20 gauge; Barr, DO; 03/04/21; 1208 Incision 03/03/21; 0850; anterior; 03/03/21 0850 by 04/06 0449 by neck; LDA not present upon Diane Phillip Miakayah S, assessment; 04/06/21 Chino RN RN (Unknown); 0449 (n/a applicable for this admission) PIV 03/03/21; 1100; MD Rc 03/03/21 1100 by 1500 by in the OR; right side Jessica Ghosh RN Louz Jessica beltran RN chest; no longer indicated, removed per policy/procedure, catheter/device intact; 03/03/21; 1500 documented in this encounter Social History Tobacco Use Types Packs/Day Years Used Date Former Smoker Cigarettes 3 40 Quit: 10/08/19 11 Smokeless Tobacco: Never Used Alcohol Use Standard Drinks/Week Comments No 0 (1 standard drink = 0.6 oz pure alcoho l) Sex Assigned at Date Recorded Not on file documented as of this encounter OR Notes Anesthesia Postprocedure Evaluation - Nathan Barr DO - 03/03/2021 6:21 PM EDT Department of Anesthesiology Post-procedure Note Patient: Radha Masterson Procedure Summary Date: 03/03/21 Room / Location: [facility] MAIN OR Anesthesia Start: 741 Anesthesia Stop: 1209 Procedures: THYROIDECTOMY, INCL. SUBSTERNAL, CERVICAL APPROACH (WRVU 17.62) (Bilateral Neck) FACIAL NERVE MONITORING, SETUP LARYNGEAL (WRVU 1.57) (N/A Neck) ULTRASONIC GUIDANCE, INTRAOP (WRVU 1.2) (N/A Neck) Diagnosis: (MULTINODULAR GOITER) Surgeons: Lisa Singh MD Responsible Provider: Jose C Forde MD Anesthesia Type: general ASA Status: 4 All Anesthesia Providers: Anesthesiologist: Jose C Forde MD Ivory Polisher: Nathan Barr DO Vitals Value Taken Time BP 131/74 03/03/21 1630 Temp 37.1 ??C (98.8 ??F) 03/03/21 1430 Pulse 0 03/03/21 1639 Resp 22 03/03/21 1637 SpO2 95 % 03/03/21 1636 Pain Level 0 03/03/21 1430 Vitals shown include unvalidated device data. Patient Location: PACU/[facility] Level of Consciousness: Awake and Alert Pain Management: Satisfactory Analgesia PONV: None Cardiovascular Status: Hemodynamically Stable Respiratory Status: CPAP and Stable Respiratory Status Postoperative Fluid Status: Intravascular EUvolemia Possible Anesthetic Complications: NONE apparent at time of evaluation Final Primary Anesthesia Type: General (The anesthetic type performed was the same as planned.) Comments: Anesthesia Preprocedure Evaluation - Jose C Forde MD - 12/03/2020 8:04 AM EDT Pre-Anesthesia Evaluation for: Radha hensley 65 y.o. female. Procedure(s): THYROIDECTOMY, INCL. SUBSTERNAL, CERVICAL APPROACH (WRVU 17.62) FACIAL NERVE MONITORING, SETUP LARYNGEAL (WRVU 1.57) ULTRASONIC GUIDANCE, INTRAOP (WRVU 1.2) Patient Active Problem List Diagnosis ??? Multinodular goiter ??? Vitamin D deficiency Level 12 (08/2019.) high dose vitamin D twice weekly for 12 weeks prescribed. ??? Dependence on continuous supplemental oxygen ??? Anxiety ??? Intertrigo ??? Grief at loss of child Son October 2018. ??? Depression ??? Chronic heart failure with preserved ejection fraction ??? DAVID (obstructive sleep apnea) ??? Pulmonary hypertension ??? Musculoskeletal chest pain ??? Pleural effusion on right Recent fall with right pleural fluid on OSH CT on 03/22/14 ??? Obesity due to excess calories with serious comorbidity Past Medical History: Diagnosis Date ??? JODY [...] / LEFT/AMAN LCCK/AMAN LPS/ANTIBIOTIC CEMENT ProcedureDate: 11/23/2005 Social History Tobacco Use ??? Smoking status: Former Smoker Packs/day: 3.00 Years: 40.00 Pack years: 120.00 Types: Cigarettes Quit date: 10/08/2010 Years since quittin.1 ??? Smokeless tobacco: Never Used Substance Use Topics ??? Alcohol use: No Social History Substance and Sexual Activity Drug Use No Allergies Allergen Reactions ??? Iodinated Contrast Media ??? Iodine And Iodide Containing Products CIS - Rash, CIS - Rash ??? Morphine Rash ??? Oxycodone Rash Medications: MAR and/or home medications have been reviewed. Physical Exam: Preprocedure Vitals Current as of 12/03/20 0804 No BP, pulse, respiration, SpO2, or temperature recorded. Height: Weight: BMI: IBW: Airway Assessment: Mallampati: II TM distance: >3 FB Neck ROM: full Cardiovascular Assessment: system normal Pulmonary Assessment: (+) wheezes Dental Assessment: (+) edentulous Misc Assessment: IV access: Peripheral line Other exam findings: I was able to place a 20 g IV in right chest vein (MDB) Last Filed Perioperative Cognitive Screening None Anesthesia Plan: ASA 4 general, with a(n) intravenous induction 65 y.o., 191kg (BMI 77) female with multinodular goiter presenting for thyroidectomy PMH significant for super morbid obesity, DAVID/OHS (on BiPAP), pHTN, HFpEF, chronic hypoxemic respiratory failure, hypercapnia, anxiety, depression, HTN Medications: ASA, albuterol, bupropion, buspirone, citalopram, flonase, furosemide, gabapentin, duoneb, metformin, montelukast, spironolactone No hx of problems with anesthesia. Prior MAC 3 for intubation (2007) EK12/2020: NSR TTE: 12/2020: EF 60%, mild LVH, normal LV systoic function, no WMAs, mildly dilated RV, mildly dilated LA, mild TR, PASP 52mmHg, SUNDEEP 8mmHg Lab Results Component Value Date HGB 13.8 11/06/2020 PLATELET 238 11/06/2020 INR 1.2 (H) 01/16/2017 NA 140 11/06/2020 K 4.1 11/06/2020 CREATININE 0.56 (L) 11/06/2020 No results for input(s): ABORH in the last 7068 hours. Allergies: -- Red Blood Cells -- Other (See Comments) -- Antibodies-Difficult to Crossmatch DO NOT REMOVE Please contact the Blood Bank at [phone] for questions. -- Iodine And Iodide Containing Products -- rash -- Oxycodone -- Rash -- Morphine -- Rash -- Other reaction(s): PRURITIS NPO Status: Appropriate Denies recent fever or URI Sxs Anesthetic Plan: GA with NIM Tube, RSI, CMAC in room Standard ASA monitoring + arterial line Peripheral IV x2 Possible post op ICU for extubation vs extubate to BiPAP Nathan Barr DO Pager: [phone] Attending addendum (MD Forde) Patient seen and examined in preop. Anesthetic plans discussed with patient, including possible needfor postoperative mechanical ventilation, ICU stay. Will place post induction armani, obtain additional PIV access. Discussed case with surgeon, patient previously cancelled and now returns as optimizedas she is likely to be moving forward, so will proceed with case. Region - Other Informed Consent: Plan discussed with resident and attending. [facility] PAT Clinic Note: Date and Time of Entry: 12/09/2020 11:18 AM Entered By: Morales Griffith MD Reason for Evaluation: Surgeon Request Hx of Anesthesia Problem: Morbid obesity, pHTN, HFpEF PAT Visit Type: Telephone Call Additional/Outside Records Requested? Did not request medical information from outside organization. Findings, Assessment and Plan: Radha Masterson is a 65 y.o. female (BMI 74) extensive former smoker presenting to [facility] ahead of thyroidectomy for multinodular goiter with Dr. Singh. Per Dr. Singh' notes: She reports compressive symptoms. These include Dysphagia, Pill Dysphagia and Globus sensation. Ultrasound of the thyroid demonstrated 1.9 Suspicious RIGHT thyroid nodule, 1.7cm isthmus nodule, 4cm left thyroid nodule. PMHx significant for: Super morbid obesity - not tracking weight at home HFpEF, pHTN - last TTE 2018, normal systolic function, mild-mod pHTN. OHS, chronic hypoxemic respiratory failure on 2-3 L daytime home O2 and 5 L at night - only uses albuterol prn. Told recently by Pulmonology she does not actually have COPD. So just uses PRN albuterol for SOB, averages a couple of times per week. Prior PFTs indicating obesity related ventilatory impairments without clear airway obstruction (making COPD less likely and obesity related atelectasis andV/Q mismatch more likely) HTN - reports lately SBP has increased to 160s, used to be pretty stable in 120s DAVID on BiPAP (compliant) DM2 on metformin - labs suggest good control Depression on citalopram, buspirone, bupropion Reports extremely limited functional abilities (can do dishes, cannot get into shower/tub herself). Does report occasional sharp/stabbing chest pain, perhaps once a month. Seems to be fairly random (not specifically with activity). Usually goes away on its own in <1 minute. No associated sx. Deniespalpitations. Does report increased leg swelling in the past month despite lasix treatment. States she feels her lasix dose is inadequate. Sleeps nearly upright (has a hospital bed). Allergies - Iodine, Morphine, Oxycodone Anesthesia Hx: Past airway: NA Pt denies past complications from anesthesia and any family hx of complications with anesthesia. Cardiology: TTE 03/13/2019: EF 60-65%, normal RV, PASP 45-50mmHg PFTs: FEV1 and FVC are reduced, FEV1/VC is normal. Consistent with Restrictive pattern. Labs: COVID-19 testing: none recent Otherwise unremarkable. Ms. Masterson is a 65 yr old woman with super morbid obesity and significant cardiopulmonary comorbidities scheduled for thyroidectomy in late December for significant multinodular goiter beginning to cause compressive symptoms. Although there is undoubtedly some urgency to her case, it is clear from our conversation that she is not yet optimized for surgery. In fact, her cardiopulmonary status seems to be deteriorating overall (increasing BP, worsening leg swelling and orthopnea, occasional chest pain). Forthese reasons, she is extremely high risk for this surgery/general endotracheal anesthesia and we recommend she re-[facility], for further workup, possible repeat TTE, and possible optimization of BP and volume status prior to surgery. After hearing our recommendations to be scheduledfor evaluation by the HF clinic, she became agitated about the possibility of her surgery being delayed and hung up the phone on this provider. Anesthetic plans not discussed/consent not obtained. Whensurgery occurs, recommend careful planning both for intubation and, especially, extubation of this patient, potentially to be performed in controlled setting in SICU post operatively. Morales Griffith MD 12/03/2020 PCC Attending Addendum 02/25/21: Cartography Technician, Food Service Order Clerk clinic notes and TTE reviewed, no additional workup or optimization indicated at this point. TTE 01/06/21 reassuring for stable PASP and normal RV function, I think it is reasonable to proceed with surgery. - Per Dr. Edwards (Cardiology) During her cardiology evaluation in 12/2020, she was started on spironolactone and Lasix increased to80mg daily. Clinic BP's in December & January were well- controlled, SBP 110-130's, DBP 50's-80's, HR 80's. SpO2 93% on RA Per Pulmonology eval 01/2021: no additional testing. Recommend close attention to underlying DAVID/OHSin post-operative setting. May need period of NIV after surgery Would use her home BiPAP settings asa guide. Use nebulized bronchodilators as necessary given she is not on any standing long-acting bron chodilators. -She should get other routine care to reduce risk of post-operative pulmonary complications such as incentive spirometry, VTE PPx, adequate pain control, early mobilization, and airways clearance. Zan Schreiber MD documented in this encounter Plan of [...] google or use a book such as [employer] (available on [employer]) OR [employer] (if you're using a package, it will have calorie and protein info on the back) - The other thing to write down would be grams of protein - 1500 is a good starting point for a ca jeffrey goal documented as of this encounter Visit Diagnoses Not on filedocumented in this encounter Administered Medications Inactive Administered Medications - up to 3 most recent administrations Medication Order MAR Action Action Date Dose Rate Site acetaminophen (Ofirmev) (1000 Given 03/03/2021 10:52 AM EDT 1,00 0 mg mg/100 mL) infusion Intravenous, PRN, Starting on Tue03/03/21 at 1052, Until Tue03/03/21 at 1235, Anesthesia Intra-op, Routine albuteroL 90 mcg/actuation inhaler Given 03/03/2021 8:00 AM EDT 8 puffs Inhalation, PRN, Starting on Tue03/03/21 at 0800, Until Tue03/03/21 at 1235, Anesthesia Intra-op, Routine ceFAZolin (Ancef) 3 g in dextrose 5% 109 mL Given 03/03/2021 8:4 0 AM EDT 3 g infusion 3 g, Intravenous, COUNTER WEIGHER TO O.R., 1 dose, On Tue03/03/21 at 0745, Administer over 30 Minutes, Indication for (Active or Suspected): Prophylaxis dexamethasone (Decadron) injection Given 03/03/2021 11:06 AM EDT 4 mg Intravenous, PRN, Starting on Tue03/03/21 at 1106, Until Tue03/03/21 at 1235, Anesthesia Intra-op, Routine ePHEDrine sulfate (5 mg/mL) multi-dose Given 03/03/2021 10:51 AM EDT 10 mg injection Intravenous, PRN, Starting on Tue03/03/21 at 0828, Until Tue03/03/21 at 1235, Anesthesia Intra-op, Routine Given 03/03/2021 9:53 AM EDT 10 mg Given 03/03/2021 8:34 AM EDT 10 mg lactated ringers infusion New Bag 03/03/2021 7:42 AM EDT 1,000 mL, at 100 mL/hr, Intravenous, CONTINUOUS, Starting on Tue03/03/21 at 0730, Until Tue03/03/21 at 1436, Day of Surgery (Day of Procedure) lactated ringers infusion New Bag 03/03/2021 8:05 AM EDT Intravenous, CONTINUOUS PRN, Starting on Tue03/03/21 at 0805, Until Tue03/03/21 at 1235, Anesthesia Intra-op lidocaine (pf) (Xylocaine) (20 mg/mL) 2% Given 03/03/2021 7:51 A M EDT 100 mg injection syringe Intravenous, PRN, Starting on Tue03/03/21 at 0751, Until Tue03/03/21 at 1235, Anesthesia Intra-op, Routine ondansetron (pf) (Zofran) (2 mg/mL) inje ction Given 03/03/2021 11:06 AM EDT 8 mg Intravenous, PRN, Starting on Tue03/03/21 at 1106, Until Tue03/03/21 at 1235, Anesthesia Intra-op, Routine PHENYLephrine Rate/Dose Change 03/03/2021 11:47 15 mcg/min 11.25 mL/h r (Ruddy-Synephrine) (80 mcg/mL) AM EDT in sodium chloride 0.9% 250 mL infusion Intravenous, CONTINUOUS PRN, Starting on Tue03/03/21 at 0840, Until Tue03/03/21 at 1235, Anesthesia Intra-op, Routine Rate/Dose Change 03/03/2021 11:35 AM EDT 30 mcg/min 22.5 mL/hr Rate/Dose Change 03/03/2021 11:12 AM EDT 60 mcg/min 45 mL/hr PHENYLephrine in NS (PF) (RUDDY-SYNEPHRINE) Given 03/03/2021 10:51 AM EDT 80 mcg 0.8 mg/10 mL (80 mcg/mL) multi-dose injection Syrg Intravenous, PRN, Starting on Tue03/03/21 at 0831, Until Tue03/03/21 at 1235, Anesthesia Intra-op, Routine Given 03/03/2021 10:32 AM EDT 120 mcg Given 03/03/2021 8:41 AM EDT 160 mcg propofoL (Diprivan) 10 mg/mL bolus injection Given 11:22 AM EDT 30 mg (Anesthesia) Intravenous, PRN, Starting on Tue03/03/21 at 0751, Until Tue03/03/21 at 1235, Anesthesia Intra-op Given 03/03/2021 7:52 AM EDT 50 mg Given 03/03/2021 7:51 AM EDT 100 mg propofoL (Diprivan) infusion Rate/Dose 03/03/2021 25 mcg/kg/min 30.735 Intravenous, CONTINUOUS PRN, Change 11:03 AM EDT mL/hr Starting on Tue03/03/21 at 0806, Until Tue03/03/21 at 1235, Anesthesia Intra-op, Routine Rate/Dose Change 03/03/2021 9:11 AM EDT 50 mcg/kg/min 61.47 mL/hr Rate/Dose Change 03/03/2021 8:55 AM EDT 75 mcg/kg/min 92.205 mL/hr remifentaniL (Ultiva) (0.02 Rate/Dose 03/03/2021 0.15 92.205 mg/mL) infusion (Anesthesia) Change 11:31 AM EDT mcg/kg/min mL/hr Intravenous, CONTINUOUS PRN, Starting on Tue03/03/21 at 0806, Until Tue03/03/21 at 1235, Anesthesia Intra-op Rate/Dose Change 03/03/2021 11:12 AM EDT 0.05 mcg/kg/min 30.735 mL/ hr Rate/Dose Change 03/03/2021 11:04 AM EDT 0.1 mcg/kg/min 61.47 mL/hr rocuronium (Zemuron) (10 mg/mL) multi-dose Given 03/03/2021 8:00 AM EDT 20 mg injection Intravenous, PRN, Starting on Tue03/03/21 at 0800, Until Tue03/03/21 at 1235, Anesthesia Intra-op, Routine succinylcholine (Anectine;Quelicin) (20 Given 03/03/2021 7:51 AM EDT 200 mg mg/mL) injection Intravenous, PRN, Starting on Tue03/03/21 at 0751, Until Tue03/03/21 at 1235, Anesthesia Intra-op, Routine sugammadex (Bridion) 100 mg/mL injection Given 03/03/2021 11:34 AM EDT 200 mg Intravenous, PRN, Starting on Tue03/03/21 at 1134, Until Tue03/03/21 at 1235, Anesthesia Intra-op, Routine documented in this encounter Care Teams Senior Net Programmer Relationship Specialty Start Date End Date Alphonso Murphy MD PCP - General Family Medicine 02/19/[address] [place] [address] documented as of this encounter
--- OUTSIDE RECORDS SUMMARY | 2022-03-05 02:16 | XMS_ITS | Encounter Summary ---
:1955 Author Organization [place] [address] Care Team Providers Name Role Phone Alphonso Murphy MD Primary Care Provider [phone] Reason for Referral Consultation (Urgent) - Duplicate Referral Specialty Diagnoses / Procedures Referred By Contact Refer red To Contact Cardiology Diagnoses Chronic heart failure with preserved ejection fraction Lisa Singh MD [facility] [place] [address] [place] [address] Referral ID Status Reason Start Expiration Visits Visits Date Date Requested Authorized [id number] Duplicate Consult, 12/16/2020 12/16/2021 1 1 Referral Test & Treat Encounter Details Date Type Department Care Team Description 12/16/2020 Orders Only General Surgery at Lisa Singh MD Chronic heart failure [facility] with preserved [facility] DR ejection fraction [facility] GENERAL SURGERY (Primary Dx) [place] [address] [place] [address] [phone] Social History Tobacco Use Types Packs/Day Years Used Date Former Smoker Cigarettes 3 40 Quit: 10/08/19 11 Smokeless Tobacco: Never Used Alcohol Use Standard Drinks/Week Comments No 0 (1 standard drink = 0.6 oz pure alcoho l) Sex Assigned at Date Recorded Not on file documented as of this encounter Plan of Treatment Scheduled Referrals Name Type Priority Associated Order Schedule Diagnoses Referral to Outpatient Referral Routine Chronic heart Ordered : Cardiology failure with 12/16/2020 preserved ejection fraction documented as of this encounter Goals Goal [...] google or use a book such as [employer] (available on [employer]) OR [employer] (if you're using a package, it will have calorie and protein info on the back) - The other thing to write down would be grams of protein - 1500 is a good starting point for a ca jeffrey goal documented as of this encounter Visit Diagnoses Diagnosis Chronic heart failure with preserved eje ction fraction - Primary documented in this encounter Care Teams Receiving Room Clerk Relationship Specialty Start Date End Date Alphonso Murphy MD PCP - General Family Medicine 02/19/[address] [place] [address] [address] [place] [address] documented as of this encounter
--- OUTSIDE RECORDS SUMMARY | 2022-03-05 02:16 | XMS_ITS | Encounter Summary ---
:1955 Author Organization [facility] [address] Care Team Providers Name Role Phone Alphonso Murphy MD Primary Care Provider [phone] Encounter Details Date Type Department Care Team Description 02/25/2021 Notes Only [facility] [place] [address] Social History Tobacco Use Types Packs/Day [...] google or use a book such as [employer] (available on [employer]) OR [employer] (if you're using a package, it will have calorie and protein info on the back) - The other thing to write down would be grams of protein - 1500 is a good starting point for a ca jeffrey goal documented as of this encounter Visit Diagnoses Not on filedocumented in this encounter Care Teams Regulatory And Compliance Technician Relationship Specialty Start Date End Date Alphonso Murphy MD PCP - General Family Medicine 02/19/[address] [place] [address] documented as of this encounter
--- OUTSIDE RECORDS SUMMARY | 2022-03-05 02:16 | XMS_ITS | Encounter Summary ---
:1955 Author Organization [facility] Address [place] [id number] Care Team Providers Name Role Phone Alphonso Murphy MD Primary Care Provider [phone] Reason for Referral Diagnostic Test (Routine) - Closed Specialty Diagnoses / Procedures Referred By Contact Refer red To Contact Cardiology Diagnoses Pulmonary hypertension Tex Edwards MD [facility] Non-Inv Card Lab Procedures Echocardiogram Transthoracic([facility] or [facility]) [facility] [place] [address] [place] [address] Fax: Referral ID Status Reason Start Date Expiration Date Visits V isits Requested Authorized [id number] Closed Specialty 01/01/2021 01/01/2022 1 1 Service Requested Reason for Visit Diagnostic Test (Routine) - Closed Specialty Diagnoses / Procedures Referred By Contact Refer red To Contact Cardiology Diagnoses Pulmonary hypertension Tex Edwards MD [facility] Non-Inv Card Lab Procedures Echocardiogram Transthoracic([facility] or [facility]) [facility] [place] [address] [place] [address] Fax: Referral ID Status Reason Start Date Expiration Date Visits V isits Requested Authorized [id number] Closed Specialty 01/01/2021 01/01/2022 1 1 Service Requested Encounter Details Date Type Department Care Team Description 01/06/2021 Hospital Encounter Non-Invasive Tex Edwards, Pulquinn harley Cardiology Lab Margy GARCIA hypertension [facility] C[place]IOLOG[place] [phone] Social History Tobacco Use Types Packs/Day Years Used Date Former Smoker Cigarettes 3 40 Quit: 10/08/19 11 Smokeless Tobacco: Never Used Alcohol Use Standard Drinks/Week Comments No 0 (1 standard drink = 0.6 oz pure alcoho l) Sex Assigned at Date Recorded Not on file documented as of this encounter Medications at Time of Discharge Medication Sig Dispensed Refills Start Date End Date furosemide (Lasix) 40 Take 2 tablets by 180 tablet 3 021 mg TabletIndications: mouth daily. Pulmonary hypertension, Chronic heart failure with preserved ejection fraction spironolactone Take 1 tablet by 90 tablet 3 01/01/2021 (Aldactone) 25 mg mouth daily. Tablet montelukast (Singulair) Take 10 mg by mouth 0 10 mg Tablet nightly. OXYGEN-AIR DELIVERY 2 L. 0 12/24/2014 SYSTEM[facility] aspirin 325 mg Tablet Take 325 mg [...] 06/2019 (FLONASE) 50 route daily as mcg/actuation [place], needed. 04/06 Patient Suspension states that she only takes this when needed NYSTOP Powder apply topically twice 0 02/20/2019 a day if needed triamcinolone (KENALOG) 2 times daily as 0 2018 0.1 % Cream needed. ipratropium-albuterol Take 3 mLs by 0 12/02/2016 (DUONEB) 0.5 mg-3 nebulization every 6 mg(2.5 mg base)/3 mL hours as needed. Solution for Nebulization gabapentin (Neurontin) Take 100 mg by mouth 0 04/08/2021 100 mg Capsule 2 times daily. 04/06 Patient states that she has not taken this in a while as the docs have not renewed her prescription metFORMIN (Glucophage) Take 2 tablets by 60 tablet 0 201901/20/2021 500 mg Tablet mouth 2 times daily (with meals). documented as of this encounter Plan of [...] google or use a book such as Traxo (available on [employer]) OR Webyog (if you're using a package, it will have calorie and protein info on the back) - The other thing to write down would be grams of protein - 1500 is a good starting point for a juan diego murphy goal documented as of this encounter Procedures Procedure Name Priority Date/Time Associated Diagnosis Comme nts ECHOCARDIOGRAM Routine 01/06/2021 1:10 Pulmonary Results fo r this COMPLETE W CONTRAST PM EDT hypertension procedur e are in the results section. documented in this encounter Results ECHOCARDIOGRAM COMPLETE W CONTRAST (01/06/2021 1:10 PM EDT) P athologist Signature EF 60 HEARTHeatwave Interactive SYSTEM Specimen (Source) Anatomical Location Collection Method / Collectio n Time Received Time / Laterality Volume 01/06/2021 Narrative HEART[facility] SYSTEM - 01/06/2021 2:11 PM EDT Procedure: ?Transthoracic Echocardiogram Patient: ?YOUNG CYN ?(Age): 1955(65y) Med Rec#: ? [id number] ?Sex: ?F ? Site Loc: ? [facility] ?Ht / Wt: ??160(cm)/190.5(k Pt. Loc: ?BSA: ?2.65 Study Date: ?? 01/06/2021 ?Pt. Type: Outpatient Tape: ? Referring: Tex Edwards ([id number]) Reading: Frandy Steiner ([id number]) Hot Tar Roofer: Aaliyah Conley Diagnosis: *Other secondary pulmonary hypertension (I27.2) BP: ? 141/68 SUMMARY: 1. Technically difficult study despite t he use of echo contrast. 2. Mild concentric left ventricular hype rtrophy is observed. ??There is normal global left ventricular systolic function. ??Ejection fraction is estimated to be 60%. ??There are no left ventricular segmental wall motion abnormalities. 3. The right ventricle is mildly dilated (not well seen). ??Right ventricular global systolic function is normal. 4. The left atrium is mildly dilated. 5. There is mild (1+/4+) tricuspid regur gitation present. 6. The estimated pulmonary artery systol ic pressure is 52 mmHg. ??The estimated right atrial pressure is 8 mmH g. 7. Other details as noted below. Findings ? : Left Ventricle: ? The left ventricul ar chamber size is normal. ?Mild concentric left ventricular h ypertrophy is observed. ?There is no evidence of LVOT obstr uction. ?No ventricular septal defect is vi sualized. ?There is normal global left ventri cular systolic function. ??Ejection fraction is estimated to be 60%. ?There are no left ventricular segm ental wall motion abnormalities. ?Left ventricular diastolic functio n is abnormal. ?Doppler assessment is consistent w ith elevated left sided filling pressure. Left Atrium: ? The left atrium is mi ldly dilated. ?There is no patent foramen ovale v isualized. Right Ventricle: ? The right ventric le is mildly dilated. ?Right ventricular global systolic function is normal. ?The estimated pulmonary artery sys tolic pressure is 52 mmHg. ?The estimated right atrial pressur e is 8 mmHg. Right Atrium: ? The right atrium is mildly dilated. Aortic Valve: ? The aortic valve is not well visualized. ?There is no evidence of aortic orestes ve stenosis. ?There is no evidence of aortic reg urgitation. Mitral Valve: ? The mitral valve luz maria flets are mildly thickened. ?There is trace mitral regurgitatio n present. Tricuspid Valve: ? The tricuspid orestes ve appears normal in structure and function. ?There is mild (1+/4+) tricuspid re gurgitation present. Pulmonic Valve: ? The pulmonic valve is not well visualized. Pericardium: ? The pericardium appea rs normal and there is no evidence of a pericardial effusion. Aorta: ? The aortic root is normal i n size. ?The ascending aorta was not well v isualized. Pulmonary Artery: ? The main pulmona ry artery is not well visualized. Venous: ? The inferior vena cava guerita ears dilated. ?There is a greater than 50% respir atory change in the inferior vena cava dimension. Misc: ? Two-dimensional echo, spectr al Doppler and color Doppler performed. ?Optison contrast (one 3 ml vial) w as used to enhance endocardial definition. Excess contrast was discarde d. Chambers 2D ?Value ?Units (Range) ? IVSd (2D) ? 1.54 ? cm ? LVPWd (2D) ?1.48 ? cm ? IVS:LVPW ratio (2D) 1.04 ? ratio ? RWT (2D) ?0.6 ?ratio ? RWT PW (2D) ? 0.59 ? ratio ? LVIDd (2D) ?5.01 ? cm ? LVIDs (2D) ?3.51 ? cm ? LVIDd (2D) index ?1.89 ? cm/m2 ? LVIDs (2D) index ?1.32 ? cm/m2 ? LV FS (2D) ?29.99 ?% ? EF Teichholz (2D) ?? 56.95 ?% ? Ao root diameter (2D3.24 ? cm (2.1 - 3.6) ? Volumes/Mass ?Value ?Units (Range) ? LA Area 4 CH ?33.2 ? cm2 (<21) ? LA ESV BP (A/L) inde41.54 ? ml/m2 ? RA AREA 4CH ? 16.8 ? cm2 ? LV mass (2D) ?326.31 ? g ? LV mass (2D) index ??123.12 ? g/m2 ? Diastolic/Systolic Function ?Value ?Units (Range) ? MV E-wave Vmax ?1.15 ? m/sec ? MV deceleration vwtl772.87 ? m sec ? MV A-wave Vmax ?1.17 ? m/sec ? MV E:A ratio ?0.98 ? ratio ? LV septal e' Vmax ?? 0.06 ? m/sec ? LV lateral e' Vmax ??0.08 ? m/sec ? LV average e' Vmax ??0.07 ? m/sec ? LV E:e' septal ratio19.1 ? ratio ? LV E:e' lateral rati14.33 ? ratio ? LV average E:e' rati16.37 ? ratio ? Tricuspid Valve ?Value ?Units (Range) ? TR Vmax ? 3.33 ? m/sec ? TR peak gradient ?44.39 ?mmHg ? RAP ? 8 ?mmHg ? RVSP ?52 ? mmHg ? Wall Motion: Segment Name ?Rest ? Base-Anteroseptal ?? Normal ? Base-Anterior ? Normal ? Base-Anterolateral ??Normal ? Base-Posterolateral Normal ? Base-Inferior ? Normal ? Base-Inferoseptal ?? Normal ? Mid-Anteroseptal ?Normal ? Mid-Anterior ?Normal ? Mid-Anterolateral ?? Normal ? Mid-Posterolateral ??Normal ? Mid-Inferior ?Normal ? Mid-Inferoseptal ?Normal ? Raymond-Septal ? Normal ? Raymond-Anterior ? Normal ? Raymond-Lateral ?Normal ? Raymond-Inferior ? Normal ? Raymond-Tip ?Normal ? This report has been electronically sign ed by: _ Frandy Steiner MD ? 01/06/2021 14:10:00 Images reviewed and interpretation verif ied [facility] Cardiac Ultrasound Laboratory Procedure Note Frandy Steiner MD - 01/06/2021Forma tting of this note might be different from the original. Procedure: Transthoracic Echocardiogram Patient: JOHAN CASTANEDA(Age): 1955 (65y) Med Rec#: [id number] Sex: F Site Loc: [facility] Ht / Wt: 160(cm)/190.5(k Pt. Loc: BSA: 2.65 Study Date: 01/06/2021 Pt. Type: Outpati ent Tape: Referring: Tex Edwards ([id number]) Reading: Frandy Steiner ([id number]) Hot Tar Roofer: Aaliyah Conley Diagnosis: *Other secondary pulmonary hypertension (I27.2) BP: 141/68 SUMMARY: 1. Technically difficult study despite t he use of echo contrast. 2. Mild concentric left ventricular hype rtrophy is observed. There is normal global left ventricular systolic function. Ejection fraction is estimated to be 60%. There are no left v entricular segmental wall motion abnormalities. 3. The right ventricle is mildly dilated (not well seen). Right ventricular global systolic function is normal. 4. The left atrium is mildly dilated. 5. There is mild (1+/4+) tricuspid regur gitation present. 6. The estimated pulmonary artery systol ic pressure is 52 mmHg. The estimated right atrial pressure is 8 mmH g. 7. Other details as noted below. Findings : Left Ventricle: The left ventricular yohannes mber size is normal. Mild concentric left ventricular hypert rophy is observed. There is no evidence of LVOT obstructio n. No ventricular septal defect is visuali zed. There is normal global left ventricular systolic function. Ejection fraction is estimated to be 60%. There are no left ventricular segmental wall motion abnormalities. Left ventricular diastolic function is abnormal. Doppler assessment is consistent with e levated left sided filling pressure. Left Atrium: The left atrium is mildly d ilated. There is no patent foramen ovale visual ized. Right Ventricle: The right ventricle is mildly dilated. Right ventricular global systolic funct ion is normal. The estimated pulmonary artery systolic pressure is 52 mmHg. The estimated right atrial pressure is 8 mmHg. Right Atrium: The right atrium is mildly dilated. Aortic Valve: The aortic valve is not we ll visualized. There is no evidence of aortic valve st enosis. There is no evidence of aortic regurgit ation. Mitral Valve: The mitral valve leaflets are mildly thickened. There is trace mitral regurgitation pre sent. Tricuspid Valve: The tricuspid valve guerita ears normal in structure and function. There is mild (1+/4+) tricuspid regurgi tation present. Pulmonic Valve: The pulmonic valve is no t well visualized. Pericardium: The pericardium appears nor mal and there is no evidence of a pericardial effusion. Aorta: The aortic root is normal in size . The ascending aorta was not well visual ized. Pulmonary Artery: The main pulmonary art oscar is not well visualized. Venous: The inferior vena cava appears d ilated. There is a greater than 50% respiratory change in the inferior vena cava dimension. Misc: Two-dimensional echo, spectral Dop pler and color Doppler performed. Optison contrast (one 3 ml vial) was us ed to enhance endocardial definition. Excess contrast was discarde d. Chambers 2D Value Units (Range) IVSd (2D) 1.54 cm LVPWd (2D) 1.48 cm IVS:LVPW ratio (2D) 1.04 ratio RWT (2D) 0.6 ratio RWT PW (2D) 0.59 ratio LVIDd (2D) 5.01 cm LVIDs (2D) 3.51 cm LVIDd (2D) index 1.89 cm/m2 LVIDs (2D) index 1.32 cm/m2 LV FS (2D) 29.99 % EF Teichholz (2D) 56.95 % Ao root diameter (2D3.24 cm (2.1 - 3.6) Volumes/Mass Value Units (Range) LA Area 4 CH 33.2 cm2 (<21) LA ESV BP (A/L) inde41.54 ml/m2 RA AREA 4CH 16.8 cm2 LV mass (2D) 326.31 g LV mass (2D) index 123.12 g/m2 Diastolic/Systolic Function Value Units (Range) MV E-wave Vmax 1.15 m/sec MV deceleration dtkc435.87 msec MV A-wave Vmax 1.17 m/sec MV E:A ratio 0.98 ratio LV septal e' Vmax 0.06 m/sec LV lateral e' Vmax 0.08 m/sec LV average e' Vmax 0.07 m/sec LV E:e' septal ratio19.1 ratio LV E:e' lateral rati14.33 ratio LV average E:e' rati16.37 ratio Tricuspid Valve Value Units (Range) TR Vmax 3.33 m/sec TR peak gradient 44.39 mmHg RAP 8 mmHg RVSP 52 mmHg Wall Motion: Segment Name Rest Base-Anteroseptal Normal Base-Anterior Normal Base-Anterolateral Normal Base-Posterolateral Normal Base-Inferior Normal Base-Inferoseptal Normal Mid-Anteroseptal Normal Mid-Anterior Normal Mid-Anterolateral Normal Mid-Posterolateral Normal Mid-Inferior Normal Mid-Inferoseptal Normal Raymond-Septal Normal Raymond-Anterior Normal Raymond-Lateral Normal Raymond-Inferior Normal Raymond-Tip Normal This report has been electronically sign ed by: _ Frandy Steiner MD 01/06/2021 14:10: 00 Images reviewed and interpretation verif ied [facility] Cardiac Ultrasound Laboratory Tex Edwards MD ECHO ORDERABLES Performing Organization Address City/State/ZIP Code Phon e Number [facility] documented in this encounter Visit Diagnoses Diagnosis Pulmonary hypertension Other chronic pulmonary heart diseases documented in this encounter Administered Medications Inactive Administered Medications - up to 3 most recent administrations Medication Order MAR Action Action Date Dose Rate Site perflutren protein-A microsphers Given 01/06/2021 12:40 PM EDT 3 mLs (Optison) (0.22 mg/mL) injection 3 mL 3 mL, Intravenous, ONCE PRN, 1 dose, Starting on Tue01/06/21 at 1310, Until Tue01/06/21 at 1240, for enhancement of sub-optimal echo images, Echo Lab (Intra-Procedure), Routine documented in this encounter Care Teams Software Developer Relationship Specialty Start Date End Date Alphonso Murphy MD PCP - General Family Medicine 02/19/[address] [facility] [address] [place] [address] documented as of this encounter
--- OUTSIDE RECORDS SUMMARY | 2022-03-05 02:16 | XMS_ITS | Encounter Summary ---
:1955 Author Organization [facility] [place] [address] Care Team Providers Name Role Phone Alphonso Murphy MD Primary Care Provider [phone] Encounter Details Date Type Department Care Team Description 11/07/2019 Telephone Weight and Wellness at [facility] Yoandy Medina, [facility] [address] [place] [address] Social History Tobacco Use Types Packs/Day Years Used Date Former Smoker Cigarettes 3 40 Quit: 10/08/19 11 Smokeless Tobacco: Never Used Alcohol Use Standard Drinks/Week Comments No 0 (1 standard drink = 0.6 oz pure alcoho l) Sex Assigned at Date Recorded Not on file documented as of this encounter Miscellaneous Notes Telephone Encounter - Lisy Medina, [facility] - 11/07/2019 10:03 AM EDT Weight and Wellness [employer] Door Frame Assembler pre telemedicine visit phone note. [] Confirmed patient name and date of [] Confirmed telemedicine downloaded and functioning [x] Patient not reached: [] Review of patient medications completed [] New patient packet sent [] Prescriptions ready to be signed [] Weight, blood pressure, pulse recorded [] Requested 24 hour diet recall [] Other Called both home and Mobile no answer. Lisy Medina CMA documented in this encounter Plan of Treatment [...] google or use a book such as iKONVERSE (available on [employer]) OR EthosGen (if you're using a package, it will have calorie and protein info on the back) - The other thing to write down would be grams of protein - 1500 is a good starting point for a ca jeffrey goal documented as of this encounter Visit Diagnoses Not on filedocumented in this encounter Care Teams Locomotive Firer/Fireman Relationship Specialty Start Date End Date Alphonso Murphy MD PCP - General Family Medicine 02/19/[address] [place] [address] documented as of this encounter
--- OUTSIDE RECORDS SUMMARY | 2022-03-05 02:16 | XMS_ITS | Encounter Summary ---
:1955 Author Organization [facility] Address [facility] [address] [place] [address] Care Team Providers Name Role Phone Alphonso Murphy MD Primary Care Provider Encounter Details Date Type Department Care Team Description 09/02/2020 Orders Only Pulmonology at [facility] Travis Giraldo MD Pulmonary hypertension [facility] [place] [phone] Pulmonary Medicine [phone] [place], [place] [address] Social History Tobacco Use Types Packs/Day Years Used Date Former Smoker Cigarettes 3 40 Quit: 10/08/19 11 Smokeless Tobacco: Never Used Alcohol Use Standard Drinks/Week Comments No 0 (1 standard drink = 0.6 oz pure alcoho l) Sex Assigned at Date Recorded Not on file documented as of this encounter Plan of Treatment Scheduled Orders Name Type Priority Associated Diagnoses Order S chedule Pulmonary Function PFT Routine Pulmonary hypertension Expected: 09/02/2020 Testing (Approximate), Expires: 03/02/2022 documented as of this encounter Goals Goal [...] or use a book such as Calorie Tango Card (available on [employer]) OR IO Turbine (if you're using a package, it will have calorie and protein info on the back) - The other thing to write down would be grams of protein - 1500 is a good starting point for a ca jeffrey goal documented as of this encounter Visit Diagnoses Diagnosis Pulmonary hypertension - Primary Other chronic pulmonary heart diseases documented in this encounter Care Teams Drawing Operator Relationship Specialty Start Date End Date Alphonso Murphy MD PCP - General Family Medicine 02/19/[address] [place] [address] documented as of this encounter
--- OUTSIDE RECORDS SUMMARY | 2022-03-05 02:16 | XMS_ITS | Encounter Summary ---
:1955 Author Organization [facility] [place] [address] Care Team Providers Name Role Phone Alphonso Murphy MD Primary Care Provider Reason for Visit Reason Onset Date Comments Other 11/04/2020 Encounter Details Date Type Department Care Team Description 11/04/2020 Telephone Endocrinology at [facility] [place] [phone] Social History Tobacco Use Types Packs/Day Years Used Date Former Smoker Cigarettes 3 40 Quit: 10/08/19 11 Smokeless Tobacco: Never Used Alcohol Use Standard Drinks/Week Comments No 0 (1 standard drink = 0.6 oz pure alcoho l) Sex Assigned at Date Recorded Not on file documented as of this encounter Miscellaneous Notes Telephone Encounter - Az Mcmullen MD - 11/05/2020 2:58 PM EDT Ms. Masterson called on 11/04 to report worsening of her compressive symptoms. Reports neck is getting tighter and is also affecting her breathing. She is on 3-5L of oxygen due to COPD, has also DAVID and recently when she saw her PCP was found to have saturation in high 80s, so was told to increase O2. She has multinodular goiter, more enlarged on the right and is planned for surgery but requires pulmonaryassessment prior given her multiple comorbidities. She was scheduled to be seen in pulmonary clinic mid November, but given her worsening symptoms we were able to move her pulmonary appointment to 11/06 at10 am, and PFTs to be done on the same day at 1:30 pm. I called her and informed her about these changes, she verbalized understanding. Telephone Encounter - Sallie Abebe - 11/04/2020 2:54 PM EDT Patient states she believes she is getting worse. Please call to discuss issues. documented in this encounter Plan of Treatment [...] On track (09/21/2019 12:35 PM EST) Dimple Darden, FOREST Note: Formatting of this note might [...] google or use a book such as DNAtriX (available on [employer]) OR Expedit.us (if you're using a package, it will have calorie and protein info on the back) - The other thing to write down would be grams of protein - 1500 is a good starting point for a ca jeffrey goal documented as of this encounter Visit Diagnoses Not on filedocumented in this encounter Care Teams Plisse Machine Operator Helper Relationship Specialty Start Date End Date Alphonso Murphy MD PCP - General Family Medicine 02/19/16 [address] [place] [address] documented as of this encounter
--- OUTSIDE RECORDS SUMMARY | 2022-03-05 02:16 | XMS_ITS | Encounter Summary ---
:1955 Author Organization [facility] [place] [address] Care Team Providers Name Role Phone Alphonso Murphy MD Primary Care Provider Reason for Visit Reason Comments Follow-up R wrist continued pain Encounter Details Date Type Department Care Team Description 06/24/2020 Office Visit Orthopaedics at [facility] Maddy, Neuritis of right ulnar nerv e; [facility] Osmin Velasquez Jr., MD Carpal [place] [address] CENTER [phone] ORTHOPAEDIC SURGERY [place], [place] [address] Social History Tobacco Use Types [...] Sign Reading Time Taken Comments Blood Pressure 169/68 06/24/2020 3:37 PM EST Pulse 83 06/24/2020 3:37 PM EST Temperature - - Respiratory Rate - - Oxygen Saturation - - Inhaled Oxygen Concentration - - Weight 176.9 kg (390 lb) 06/24/2020 3:37 PM reported NWB EST Height 161.3 cm (5' 3.5) 06/24/2020 3:37 PM reported NWB EST Body Mass Index 68 06/24/2020 3:37 PM EST documented in this encounter Progress Notes Osmin Castañeda Jr., MD - 06/24/2020 3:40 PM EST Radha Masterson [id number] HISTORY OF PRESENT ILLNESS: Here for ongoing care RIGHT hand numbness. She was injected into the carpal tunnel one month ago with short lived improvement of only a week. Also notes continued small finger numbness. NCV demonstrate only borderline median n latency prolongation and chronic ulnar nerve entrapment; nodenervation in any distribution. The patient's medications, allergies, past medical history, past surgical history, family history and social history were reviewed and are documented in Epic. Review of systems is negative other than the chief complaint. PHYSICAL EXAMINATION: Seated in wheelchair; using face shield, no mask. RIGHT hand active fist brings nails to within 1-2cm DPC - modest improvement from last exam. No motor weakness of intrinsics. Decreased light touch small finger with concurrent Tinel's at elbowand local tenderness. 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 PLAN: The nature of the problem and the individual situation was discussed at length with the patient. Consistent with treatment of the primary diagnosis, we have recommended neutral wrist splint for HS use and knee pad cushion to use on elbow to minimize local trauma. She is not an operative candidate at this time and underlying condition does not warrant surgical treatment presently. Standard elbow cushions do not provide comfortable fit so we will attempt fit with knee pads. Will see her back on prn basis. Osmin Castañeda Jr, MD Department of Orthopaedics [facility] documented in this encounter Plan of Treatment [...] or use a book such as Calorie [employer] (available on [employer]) OR MTailor (if you're using a package, it will have calorie and protein info on the back) - The other thing to write down would be grams of protein - 1500 is a good starting point for a ca jeffrey goal documented as of this encounter Visit Diagnoses Diagnosis Neuritis of right ulnar nerve Carpal tunnel syndrome on right Carpal tunnel syndrome documented in this encounter Care Teams Stoker Erector And Servicer Relationship Specialty Start Date End Date Alphonso Murphy MD PCP - General Family Medicine 02/19/16 [address] [place] [address] documented as of this encounter
--- OUTSIDE RECORDS SUMMARY | 2022-03-05 02:16 | XMS_ITS | Encounter Summary ---
:1955 Author Organization [facility] [place] [address] Care Team Providers Name Role Phone Alphonso Murphy MD Primary Care Provider [phone] Encounter Details Date Type Department Care Team Description 11/13/2019 Telephone Weight and Wellness at [facility] Amanda Serrato [address] [place] [address] Social History Tobacco Use Types Packs/Day Years Used Date Former Smoker Cigarettes 3 40 Quit: 10/08/19 11 Smokeless Tobacco: Never Used Alcohol Use Standard Drinks/Week Comments No 0 (1 standard drink = 0.6 oz pure alcoho l) Sex Assigned at Date Recorded Not on file documented as of this encounter Miscellaneous Notes Telephone Encounter - Amanda Serrato - 11/13/2019 9:29 AM EDT Message left for patient to call and schedule follow up visits (Kiersten, end november, Camila, mid-December);[facility] telephone number provided. documented in this encounter Plan of [...] or use a book such as Calorie [employer] (available on Ch[employer]) OR [employer] (if you're using a package, it will have calorie and protein info on the back) - The other thing to write down would be grams of protein - 1500 is a good starting point for a ca jeffrey goal documented as of this encounter Visit Diagnoses Not on filedocumented in this encounter Care Teams Director Museum Or Zoo Relationship Specialty Start Date End Date Alphonso Murphy MD PCP - General Family Medicine 02/19/[address] [place] [address] documented as of this encounter
--- OUTSIDE RECORDS SUMMARY | 2022-03-05 02:16 | XMS_ITS | Encounter Summary ---
:1955 Author Organization [facility] Address [facility] [place] [address] Care Team Providers Name Role Phone Alphonso Murphy MD Primary Care Provider [phone] Reason for Referral Consultation (Routine) - Closed Specialty Diagnoses / Procedures Referred By Contact Refer red To Contact General Surgery Diagnoses Thyroid nodule 65 y/o with multinodular goiter, BMI 71, with compressive symptoms, isthmal nodule ~ 1.5 cm, left lobe nodule ~3.2 cm, difficult to biopsy Az Mcmullen Sorensen, Meredith J, Procedures 65 y/o with multinodular goiter, BMI 71, with compressive symptoms, isthmal nodule ~ 1.5 cm, left lobe nodule ~3.2 cm, difficult to biopsy MD GARC[facility] Ron Thompson [facility] ENDOCRINOLOGY DEPT [place] [address] [place] [address] Fax: Referral ID Status Reason Start Date Expiration Date Visits V isits Requested Authorized [id number] Closed Consult, 08/12/2020 08/12/2021 1 1 Test & Treat Reason for Visit Consultation (Urgent) - Closed Specialty Diagnoses / Procedures Referred By Contact Refer red To Contact Endocrinology Diagnoses Nontoxic goiter, unspecified Alphonso Murphy, [facility] 3b MD [address] [address] [address] [place], [place] [address] Referral ID Status Reason Start Date Expiration Date Visits V isits Requested Authorized [id number] Closed Consult, Test 08/06/2020 08/06/2021 6 6 [facility] PCP Updated and/or Approved Encounter Details Date Type Department Care Team Description 08/12/2020 Office Visit Endocrinology at [facility] Gloria Mcmullen, Thyroid nodule [facility] MD Az (Primary Dx) [place] [address] CENTER [phone] ENDOCRINOLOGY DEPT [place], [place] [address] Social History Tobacco Use Types [...] Sign Reading Time Taken Comments Blood Pressure 157/81 08/12/2020 9:06 AM EST Pulse 90 08/12/2020 9:06 AM EST Temperature - - Respiratory Rate - - Oxygen Saturation 97% 08/12/2020 9:06 AM EST Inhaled Oxygen Concentration - - Weight 186 kg (410 lb) 08/12/2020 9:06 AM EST Height 161.3 cm (5' 3.5) 08/12/2020 9:06 AM EST Body Mass Index 71.49 08/12/2020 9:06 AM EST documented in this encounter Progress Notes Az Mcmullen MD - 08/12/2020 9:00 AM EST Images from the original note were not included. Endocrinology Outpatient Visit Name: Radha Masterson Date of visit: 08/12/2020 Referral requested by: PCP Reason for referral: thyroid nodule HPI: Ms.Lois Chino Masterson is a 65 y.o. female with a PMH significant for Pulmonary HTN , COPD (O2 dependant), DAVID, BMI 71, chronic HF with preserved EF, anxiety, depression, ??pre-diabetes, h/o PE, b/l sensorineural loss recurrent UTis, low back pain with sciatica, is here for evaluation of multinodular goiter found on CTA of the chest. States she has been feeling like something is stuck in her neck for long time and this gives her discomfort, her symptoms usually attributed to her chronic lung disease. Reports mother had lung and ovarian cancer, father brain tumor Family history of thyroid cancer: yes[] No [x] History of head/neck irradiation: yes[] No [x] Biotin use: yes [] No[x] Review of Systems: General: normal energy level HEENT: Difficulty swallowing: yes[x] no[], drinking is hard sometimes, she can feel something is stuck in her throat all the time Hoarse voice: yes[] no[x] Skin: no rashes CV: lower extremity edema Resp:SOB on minimal exertion Abd: no diarrhea, nausea or abdominal pain Heme: no easy bruising : no dysuria Psych: mood is stable Current Outpatient Medications: ??? aspirin 325 mg [...] MOUTH ONCE DAILY, Disp: , Rfl: ??? metFORMIN (Glucophage) 500 [...] 0 ??? fluticasone propionate (FLONASE) 50 mcg/actuation [place], Suspension, SHAKE LQ AND U 1 SPR IEN D,Disp: , Rfl: ??? NYSTOP Powder, apply topically twice a day if needed, Disp: , Rfl: 0 ??? furosemide (LASIX) 40 mg Tablet, 80 mg daily., Disp: , Rfl: 1 ??? triamcinolone (KENALOG) 0.1 % Cream, apply topically to RASH ON LEGS twice a day, Disp: , Rfl: 0 ??? ipratropium-albuterol (DUONEB) 0.5 mg-3 mg(2.5 mg base)/3 mL Solution for Nebulization, Take 3 mLs by nebulization every 6 hours as needed., Disp: , Rfl: 0 ??? Incruse Ellipta 62.5 mcg/actuation Disk with Device, INL 1 PUFF PO QD, Disp: , Rfl: ??? SYMBICORT 160-4.5 mcg/actuation HFA Aerosol Inhaler, 1 puff 2 times daily., Disp: , Rfl: 0 ??? PROAIR HFA 90 mcg/actuation HFA Aerosol Inhaler, Inhale 1-2 puffs into the lungs every 6 hours as needed., Disp: , Rfl: 1 has a past medical history of JODY (acute kidney injury) (01/16/2017), COPD (chronic obstructive pulmonary disease), Depression, Hypertension, DAVID treated with BiPAP, and PE (pulmonary thromboembolism). Past Surgical History: Procedure Laterality Date ??? [...] Types: Cigarettes Quit date: 10/08/2010 Years since quittin.8 ??? Smokeless tobacco: Never Used Substance Use Topics ??? Alcohol use: No ??? Drug use: No family history includes Diabetes in her maternal aunt, maternal grandmother, mother, paternal aunt, and paternal grandmother. Allergies Allergen Reactions ??? Iodinated Contrast Media ??? Iodine And Iodide Containing Products CIS - Rash, CIS - Rash ??? Morphine Rash ??? Oxycodone Rash Physical Exam: VS: BP 157/81, HR 90, Sat O2 97% while on oxygen General: pleasant morbidly obese female, sitting comfortably in a motorized chair Nose/mouth: Nose not enlarged, mucous membranes moist Neck: thyroid enlarged Respiratory: symmetrical chest expansion Cardiovascular: normal S1, S2 Neurological: no tremors Psychological: alert/oriented to person, place, time Radiology Studies: US thyroid from 07/17/2020 (report in the system) US at today's visit 08/12/20: Technically difficult study due to body habitus, right lobe homogenous, diffiuclt to localized nodules, there is hypoechoic nodule located in the isthmus measuring in 1.1 x 1.7 x 1.5 cm (APx Transversex Longitudinal)and left lobe nodule isoechoic measuring 3.3 x 3.1 2.7 cm. Laboratory Data from 08/2019: TSH 1.38 Assessment / Plan: Ms.Lois Chino Masterson is a 65 y.o. female with a PMH significant for Pulmonary HTN , COPD (O2 dependant), DAVID, BMI 71, chronic HF with preserved EF, anxiety, depression, ??pre-diabetes, h/o PE, b/l sensorineural loss recurrent UTis, low back pain with sciatica, is here for evaluation of multinodular goiter found on CTA of the chest. Pt reports compressive symptoms for some time, feels like something in stuck in her throat all the time. Thyroid US was difficult to interpret due to position required by body habitus. There is a largenodule ~3.3 cm in left lobe, there is 1.7 cm nodule in isthmus, which could be attributing to symptoms. Patient's breathing pattern is also contributing to inadequate thyroid assessment and poses a risk for FNA biopsy. Thyroid US from OSH consistent with ~ 4cm nodule in left lobe (on our exam ~3.3%). Given all the above she would benefit from endocrine surgery assessment for possible thyroidectomy. General surgery consult placed. Case discussed with Dr. Gunter. Az Mcmullen PGY4, Endocrinology Fellow Pager: [phone] Sunitha Gunter MD - 08/12/2020 9:00 AM EST I saw this patient with Dr. Mcmullen. I reviewed the hickman portions of the history and physical exam, and reviewed pertinent lab data. I answered all patient questions. I was involved in all medical decision making and agree with this plan. SUNITHA GUNTER MD Line Installermannequin maker Section of Endocrinology [facility] documented in this encounter Plan of Treatment Scheduled Referrals Name Type Priority Associated Diagnoses Order S chedule Referral to Outpatient Referral Routine Thyroid nodule Ordere d: General Surgery 08/12/2020 documented as of this encounter Goals Goal [...] google or use a book such as [employer]imble (available on [employer]) OR [employer] (if you're using a package, it will have calorie and protein info on the back) - The other thing to write down would be grams of protein - 1500 is a good starting point for a ca jeffrey goal documented as of this encounter Visit Diagnoses Diagnosis Thyroid nodule - Primary Nontoxic uninodular goiter documented in this encounter Care Teams Salesperson Meats Relationship Specialty Start Date End Date Alphonso Murphy MD PCP - General Family Medicine 02/19/[address] [place] [address] documented as of this encounter
--- OUTSIDE RECORDS SUMMARY | 2022-03-05 02:16 | XMS_ITS | Encounter Summary ---
:1955 Author Organization [facility] [place] [address] Care Team Providers Name Role Phone Alphonso Murphy MD Primary Care Provider [phone] Encounter Details Date Type Department Care Team Description 09/03/2020 Telephone General Surgery at [facility] [place] [address] Social History Tobacco Use Types Packs/Day Years Used Date Former Smoker Cigarettes 3 40 Quit: 10/08/19 11 Smokeless Tobacco: Never Used Alcohol Use Standard Drinks/Week Comments No 0 (1 standard drink = 0.6 oz pure alcoho l) Sex Assigned at Date Recorded Not on file documented as of this encounter Miscellaneous Notes Telephone Encounter - Vianca Nelson RN - 09/03/2020 1:31 PM EST Ms. Masterson is scheduled for CT next week. She states she is not allergic to CT contrast, that she hashad several CTs both with and without [place] protocol, and she has never had a reaction. She does agree to following the [facility] protocol for her upcoming CT and will pickers material handlers the prescriptionswe sent in, but she plans to speak to the radiology team about getting the allergy off of her list. documented in this encounter Plan of Treatment [...] google or use a book such as Ken[employer]i (available on [employer]) OR [employer] Game[employer] (if you're using a package, it will have calorie and protein info on the back) - The other thing to write down would be grams of protein - 1500 is a good starting point for a ca jeffrey goal documented as of this encounter Visit Diagnoses Not on filedocumented in this encounter Care Teams Automotive Service Porter Relationship Specialty Start Date End Date Alphonso Murphy MD PCP - General Family Medicine 02/19/[address] [place] [address] documented as of this encounter
--- OUTSIDE RECORDS SUMMARY | 2022-03-05 02:16 | XMS_ITS | Encounter Summary ---
:1955 Author Organization [facility] [place] [address] Care Team Providers Name Role Phone Alphonso Murphy MD Primary Care Provider [phone] Reason for Visit Auth/Cert Specialty Diagnoses / Procedures Referred By Contact Refer red To Contact Diagnoses Multinodular goiter MULTINODULAR GOITER Procedures PRO THYROIDECTOMY=SUBSTERNAL, TRANSCERV PRG EMG, LARYNX PRG US GUIDE INTRAOP THYROIDECTOMY, INCL. SUBSTERNAL, CERVICAL APPROACH (WRVU 17.62) FACIAL NERVE MONITORING, SETUP LARYNGEAL (WRVU 1.57) ULTRASONIC GUIDANCE, INTRAOP (WRVU 1.2) Referral ID Status Reason Start Date Expiration Date Visits Requ ested Visits Authorized [id number] 1 1 Encounter Details Date Type Department Care Team Description 03/03/2021 Surgery Main Operating Room Lisa Singh MD THYROIDECTOMY, INCL. [facility] SUBSTERNAL, CERVICAL [facility] DR [address] (WRVU 17.62) [place] [address] [place] [address] [phone] Social History Tobacco Use Types Packs/Day Years Used Date Former Smoker Cigarettes 3 40 Quit: 10/08/19 11 Smokeless Tobacco: Never Used Alcohol Use Standard Drinks/Week Comments No 0 (1 standard drink = 0.6 oz pure alcoho l) Sex Assigned at Date Recorded Not on file documented as of this encounter Last Filed Vital Signs Vital Sign Reading Time Taken Comments Blood Pressure 129/94 03/03/2021 7:01 AM EDT Pulse 89 03/03/2021 7:01 AM EDT Temperature 37.1 ??C (98.8 ??F) 03/03/2021 7:01 AM EDT Respiratory Rate 26 03/03/2021 7:01 AM EDT Oxygen Saturation 95% 03/03/2021 7:01 AM EDT Inhaled Oxygen Concentration - - [...] REMOVE Please contact the Blood Bank at [phone] for questions. ??? Iodine And Iodide Containing Products rash ??? Oxycodone Rash ??? Morphine Rash Other reaction(s): PRURITIS Scheduled Appointments: Future Appointments Date Time Provider Department Center 03/19/2021 5:15 PM Lisa Singh MD [facility] [place] [facility] 07/28/2021 10:30 AM Mike Robles MD [facility] [place] [facility] Outpatient Services/Studies: No discharge procedures on file. [...] after thyroid surgery. Take NSAIDS and/or Tylenol oehvyy-qyg-nfhtr for the first 3-5 days following surgeryto [...] will be mailed to you Please call [phone] to confirm the date and time of [...] as noted above. Phone number for questions: [phone] before 5 PM on weekdays [phone] after 5 PM and on weekends/holidays. Ask for the general surgery resident manager environmental health and safety. General Instructions None Follow-up Recommendations for Providers: [...] after thyroid surgery. Take NSAIDS and/or Tylenol zpqqow-btq-kvqnq for the first 3-5 days following surgeryto [...] will be mailed to you Please call [phone] to confirm the date and time of your appointment if you do not hear from usin the next 2 weeks Call Doctor for: Call if you have trouble talking or breathing (call [phone] if this is severe) Call if you [...] as noted above. Phone number for questions: [phone] before 5 PM on weekdays [phone] after 5 PM and on weekends/holidays. Ask for the general surgery resident manager environmental health and safety. documented in this encounter Medications at Time [...] OXYGEN-AIR DELIVERY 2 L. 0 12/24/2014 [facility] [place] 325 mg Tablet Take 325 mg [...] 06/2019 (FLONASE) 50 route daily as mcg/actuation [place], needed. 04/06 Patient Suspension states that she [...] Ext: SCDs in place, WWP AP Radha Masterson is a 65 y.o. female s/p total [...] applied, alarms set and audible. Neck incision SIDE SAWYER with steri-strips intact. Ice applied to site. [...] nodules with compressive symptoms who presents to [facility] for planned total thyroidectomy. S: Radha Masterson endorses no recent change in health. Denies any fever, chills, cough, congestion, change in bowel habits. Prior to arrival today, Radha Mastersno was in a normal state of health. [...] Operative Note Patient Name: Radha Masterson : [id number] MR#: [id number] Case Date: 03/03/2021 Surgeon: Surgeon(s) and Role: [...] OPERATIVE NOTE PATIENT NAME: Radha Masterson : [id number] MR#: [id number] DATE OF SURGERY: 03/03/2021 SURGEON: Surgeon(s) and [...] google or use a book such as Bizmore (available on Pongo Resume) OR [employer] (if you're using a package, it will [...] Results POCT Glucose (03/04/2021 8:26 AM EDT) athologist Signature POC Glucose 111 65 - 199 [facility] mg/dL [facility] Comment: Supplemental ranges: <140 mg/dL before meals <180 mg/dL all other times of the day Specimen Anatomical Collection Method Collection Time Receive d Time (Source) Location / / Volume Laterality Blood 03/04/2021 8:26 AM 1 8:26 EDT AM EDT Lisa Singh MD POINT OF CARE TEST ORDERABLE S Performing Organization Address City/State/ZIP Code Phon e Number [address] POCT Glucose (03/04/2021 3:46 AM EDT) athologist Signature POC Glucose 126 65 - 199 [place] mg/dL [facility] Comment: Supplemental ranges: <140 mg/dL before meals <180 mg/dL all other times of the day Specimen Anatomical Collection Method Collection Time Receive d Time (Source) Location / / Volume Laterality Blood 03/04/2021 3:46 AM 1 3:46 EDT AM EDT Lisa Singh MD POINT OF CARE TEST ORDERABLE S Performing Organization Address City/State/[place] [address] (ABNORMAL) Calcium (03/04/2021 3:37 AM EDT) P athologist Signature Calcium 7.6 (L) 8.5 - 10.5 [facility] [place] mg/dL [facility] Specimen Anatomical Collection Method Collection Time Receive d Time (Source) Location / / Volume Laterality Blood 03/04/2021 3:37 AM 1 4:04 EDT AM EDT Resulting Agency Comment Spec In Lab Lisa Singh MD CHEMISTRY ORDERABLES Performing Organization Address City/State/ZIP Code Phon e Number [address] POCT Glucose (03/03/2021 11:59 PM EDT) P athologist Signature POC Glucose 147 65 - 199 [place] mg/dL [facility] Comment: Supplemental ranges: <140 mg/dL before meals <180 mg/dL all other times of the day Specimen Anatomical Collection Method Collection Time Receive d Time (Source) Location / / Volume Laterality Blood 03/03/2021 11:59 03/03/2021 PM EDT 11:59 PM EDT Lisa Singh MD POINT OF CARE TEST ORDERABLE S Performing Organization Address City/State/[place] [address] POCT Glucose (03/03/2021 8:02 PM EDT) athologist Signature POC Glucose 137 65 - 199 [place] mg/dL [facility] Comment: Supplemental ranges: <140 mg/dL before meals <180 mg/dL all other times of the day Specimen Anatomical Collection Method Collection Time Receive d Time (Source) Location / / Volume Laterality Blood 03/03/2021 8:02 PM 1 8:02 EDT PM EDT Lisa Singh MD POINT OF CARE TEST ORDERABLE S Performing Organization Address City/State/[place] [address] POCT Glucose (03/03/2021 3:59 PM EDT) athologist Signature POC Glucose 120 65 - 199 [place] mg/dL [facility] Comment: Supplemental ranges: <140 mg/dL before meals <180 mg/dL all other times of the day Specimen Anatomical Collection Method Collection Time Receive d Time (Source) Location / / Volume Laterality Blood 03/03/2021 3:59 PM 1 3:59 EDT PM EDT Lisa Singh MD POINT OF CARE TEST ORDERABLE S Performing Organization Address City/State/[place] [address] (ABNORMAL) PTH (03/03/2021 12:46 PM EDT) athologist Signature PTH 8 (L) 15 - 65 [place] pg/mL [facility] Specimen Anatomical Collection Method Collection Time Receive d Time (Source) Location / / Volume Laterality Blood 03/03/2021 12:46 03/03/2021 1:04 PM EDT PM EDT Resulting Agency Comment Spec In Lab Lisa Singh MD CHEMISTRY ORDERABLES Performing Organization Address City/State/[place] [address] POCT Glucose (03/03/2021 12:37 PM EDT) P athologist Signature POC Glucose 116 65 - 199 [facility] mg/dL [facility] Comment: Supplemental ranges: <140 mg/dL before meals <180 mg/dL all other times of the day Specimen Anatomical Collection Method Collection Time Receive d Time (Source) Location / / Volume Laterality Blood 03/03/2021 12:37 03/03/2021 PM EDT 12:37 PM EDT Lisa Singh MD POINT OF CARE TEST ORDERABLE S Performing Organization Address City/[facility]/[place] [address] Specimen to Pathology (03/03/2021 10:53 AM EDT) Specimen Anatomical Collection Method Collection Time Receive d Time (Source) Location / / Volume Laterality AP Specimen 03/03/2021 10:53 03/03/2021 AM EDT 10:53 AM EDT Narrative [facility] - 03/03/2021 10:53 AM EDT Specimen requisition ordered. ??Separate Pathology report to follow Lisa Singh MD PATHOLOGY/CYTOLOGY ORDERABLE S Performing Organization Address City/[facility]/[place] [address] Specimen to Pathology (03/03/2021 10:00 AM EDT) Specimen Anatomical Collection Method Collection Time Receive d Time (Source) Location / / Volume Laterality AP Specimen 03/03/2021 10:00 03/03/2021 AM EDT 10:00 AM EDT Narrative [facility] OR - 03/03/2021 10:00 AM EDT Specimen requisition ordered. ??Separate Pathology report to follow Lisa Singh MD PATHOLOGY/CYTOLOGY ORDERABLE S Performing Organization Address City/[facility]/ZIP Code Phon e Number [place] [id number] [facility] [address] Surgical Pathology Report (03/03/2021 9:55 AM EDT) Component Value Ref Test Analysis Performed At [facility] Range Method Time Signature Surgical [id number] ? Location: [facility]; [facility]; A [facility] Pathology [place] Report The signing pathologist has (i) examined the relevant preparation(s) for the [facility] specimen(s) and (ii) rendered or confirmed the diagnosis(es) . [facility] . ?Surgic al Pathology DIAGNOSIS A) Right thyroid lobe, excision: - Multiple adenomatous nodules (up to 1.9 cm) B) Left thyroid lobe, excision: - Multiple adenomatous nodules (up to 3.2 cm) Electronically signed by: ?MD Nina, Dennis Scherer Verified: ??03/06/2021 11:03 ??Pathologist Performed at: ??-[facility] Dept. of Pathology, [place], [place] SPECIMEN(S) SUBMITTED A - Right thyroid [...] black. The isthmic margin is inked blue. Hand Tool Lapper sections in 8 cassettes as follows: ?A1-A8: ??Hand Tool Lapper sections submitted superior to inferior B - [...] black. The isthmic margin is inked blue. Hand Tool Lapper sections in 8 cassettes as follows: ?B1-B8: ??Hand Tool Lapper sections submitted superior to inferior. ??BAA SNS Specimen (Source) Anatomical Collection Method Collection Time Re ceived Time Location / / Volume Laterality 03/03/2021 9:55 AM EDT Lisa Singh MD PATHOLOGY/CYTOLOGY ORDERABLE S Performing Organization Address City/State/[place] [address] (ABNORMAL) BLOOD GAS 2 ARTERIAL (03/03/2021 8:34 AM EDT) Analysis Performed At Patho logist Time Signature pH Art 7.39 7.35 - [facility] 7.45 [facility] pCO2 Art 44 35 - 45 [facility] mmHg [facility] pO2 Art 88 85 - 104 [facility]ORY HCO3 Art 26.3 (H) 20.0 - [facility] 26.0 [facility] mmol/L [facility] BE Art 1.4 -3.0 - 3.0 [facility] mmol/L [facility] Hgb Blood Gas 13.4 11.7 - [facility] 15.5 gm/dL [facility] O2HB Art 95.4 94.0 - [facility] 97.0 % [facility] COHB Art 0.9 % [facility] Comment: Nonsmokers: 0.5-1.5% COHB Smokers: Variable, but usually less than 10% Toxic: 20-30% COHB Lethal: Greater than 60% COHB METHB Art 0.3 <=1.5 % [facility] Na Whole Blood 136 135 - 145 mmol/L [facility] K Whole Blood 4.1 3.5 - 5.0 mmol/L [facility] Comment: Please note: Patients with WBC >100,000 may have falsely elevated Potassium levels. Contact the Clinical Chemistry L aboratory if there are any questions. ICa Whole Blood 1.12 (L) 1.15 - 1.33 mmol/L [facility] Comment: Note: ??Total bilirubin higher than 20 m g/dL may lead to falsely low ionized calcium. CL Whole Blood 106 98 - 107 mmol/L [facility] Gluc Whole Bld 110 65 - 199 mg/dL [facility] Comment: Diabetes: >=200 mg/dL plus symp toms. Lactate WB 1.6 0.5 - 2.2 mmol/L [facility] Specimen Anatomical Collection Method Collection Time Receive d Time (Source) Location / / Volume Laterality Blood 03/03/2021 8:34 AM 8:34 EDT AM EDT Lisa Singh MD CHEMISTRY ORDERABLES Performing Organization Address City/State/[place] [address] POCT Glucose (03/03/2021 7:27 AM EDT) P athologist Signature POC Glucose 103 65 - 199 [facility] mg/dL [facility] Comment: Supplemental ranges: <140 mg/dL before meals <180 mg/dL all other times of the day Specimen Anatomical Collection Method Collection Time Receive d Time (Source) Location / / Volume Laterality Blood 03/03/2021 7:27 AM 7:27 EDT AM EDT Lisa Singh MD POINT OF CARE TEST ORDERABLE S Performing Organization Address City/[facility]/[place] [address] documented in this encounter Visit Diagnoses Not on filedocumented in this encounter Admitting Diagnoses Diagnosis Multinodular [...] Given 03/03/2021 9:17 PM EDT 1,000 mg BUpivacaine (pf) (Marcaine) Given 03/03/2021 11:34 AM 30 mLs 19- Surgical Site (2.5 mg/mL) 0.25% injection EDT ONCE PRN, Starting on Tue03/03/21 at 1134, Until Tue03/04/21 at 1428, Intra-Operative (Intra-Procedure), Routine busPIRone (Buspar) tablet 10 mg Given 03/03/2021 [...] - Comment: Pt had IV dose in OR)7 (Given - Provider: Tammy Collins RN) 0000 [...] Collins RN - Reason: Medication not available) 0900 (Not Given - Provider: Mary Masterson RN - Reason: Medication not available - Comment: med not verified) 100 mg, Oral, DAILY, First dose on Tue at 1900, Until Discontinued, Routine busPIRone (Buspar) tablet 10 mg 2113 (Given - Pr ovider: Tammy Collins RN) 0900 (Not Given - [...] dextrose 5% 109 mL infusion (COMPLE CLAUDIA) 0840 (Given - Provider: Nathan Barr DO) 3 g, Intravenous, PACKAGER TO O.R., 1 dos e, On Tue03/03/21 [...] 2114 (Given - Provider: Tammy Collins RN) 953 (Given - Provider: Mary Masterson RN) 1 spray, Each Nare, DAILY, First dose on Tue03/03/21 at 1845, Until Discontinued, Routine furosemide (Lasix) tablet 80 mg 899 (Not Given - Provider: Mary Masterson RN - Reason: Patient/family refused) 80 mg, Oral, DAILY, First dose on Tue at 0900, Until Discontinued, Routine gabapentin (Neurontin) capsule 100 mg 21 14 (Given - Provider: Tammy Collins RN) 899 (Not Given - [...] 400 mg 942 (Given - Provider: Mary Masterson, RN) 400 mg, Oral, 2 TIMES DAILY, First dose on Tue03/04/21 at 0900, Until Discontinued, Routine montelukast (Singulair) tablet 10 mg 211 (Given - Provider: Tammy Collins, RN) 10 mg, Oral, NIGHTLY, First dose [...] Unit), Routine spironolactone (Aldactone) tablet 25 mg 899 (Not Given - Provider: Mary [...] or Regular (not diet) soda OR If CAR AUDIO INSTALLER O, give 15 gram glucose 40% oral [...] Unit) documented in this encounter Care Teams Hotel Operation Manager Relationship Specialty Start Date End Date Alphonso Murphy MD PCP - General Family Medicine 02/19/[address] [place] [address] documented as of this encounter
--- OUTSIDE RECORDS SUMMARY | 2022-03-05 02:16 | XMS_ITS | Encounter Summary ---
:1955 Author Organization [facility] [place] [address] Care Team Providers Name Role Phone Alphonso Murphy MD Primary Care Provider [phone] Encounter Details Date Type Department Care Team Description 12/16/2020 Telephone General Surgery at [facility] Lisa Singh MD [facility] [place] [address] GENERAL SURGERY [phone] [place], [place] [address] (Wo rk) Social History Tobacco Use Types Packs/Day Years Used Date Former Smoker Cigarettes 3 40 Quit: 10/08/19 11 Smokeless Tobacco: Never Used Alcohol Use Standard Drinks/Week Comments No 0 (1 standard drink = 0.6 oz pure alcoho l) Sex Assigned at Date Recorded Not on file documented as of this encounter Miscellaneous Notes Telephone Encounter - Lisa Singh MD - 12/16/2020 11:20 AM EDT I spoke with Radha last Tuesday 12/12. I discussed recommendations from anesthesia team. They wanted her to see cardiology again as they think her LE edema and blood pressure are not well controlled. Need cardiac evaluation prior to surgery. Surgery is still schedule for 01/05 - will see ifwe can get urgent cardiology evaluation prior to canceling surgery. If safe for surgery will proceed- if cardiology requests further workup, then we will have to delay surgery. She also told me that she hung up on the resident care provider - she stated that when he put the phonedown to discuss her case with other providers in the room, she could hear them speaking and she saidshe heard the entire conversation and at one point a comment was made per the patient but she is SUPER big. Ultimate recommendation was to delay surgery. I conveyed these recommendations to Radha. She was understandly upset and is upset about choking withfood and feels the thyroid is causing these problems which it may I did clarify with the anesthesia team and term used was super morbid obese which is a medical term to describe patients with severe obesity and anesthesia goals are in line with ensuring patient gets medical care they need and that patient is safe for surgery. I did apology to Radha as this was not the intention to upset her with this terminology and not meant to cause harm. I also explained that we need to make sure we help her and do not hurt her and currently she is deemed high risk for surgery. We need her health and cardiac issues to be addressed before considering surgery. documented in this encounter Plan of Treatment [...] or use a book such as Calorie [employer] (available on Outski) OR Personal [employer] Demand.Musement (if you're using a package, it will have calorie and protein info on the back) - The other thing to write down would be grams of protein - 1500 is a good starting point for a ca jeffrey goal documented as of this encounter Visit Diagnoses Not on filedocumented in this encounter Care Teams Senior Customer Service Representative Relationship Specialty Start Date End Date Alphonso Murphy MD PCP - General Family Medicine 02/19/[address] [place] [address] documented as of this encounter
--- OUTSIDE RECORDS SUMMARY | 2022-03-05 02:16 | XMS_ITS | Encounter Summary ---
:1955 Author Organization [place] [address] Care Team Providers Name Role Phone Alphonso Murphy MD Primary Care Provider [phone] Encounter Details Date Type Department Care Team Description 12/09/2020 TH Visit (TeleHealth) Same Day at [facility] [place] [address] Social History Tobacco Use Types Packs/Day [...] On track No Angie, (09/21/2019 Dimple Hou, FOREST 12:35 PM EST) Note: Formatting of this [...] google or use a book such as [employer] (available on Primavista) OR [employer] (if you're using a package, it will have calorie and protein info on the back) - The other thing to write down would be grams of protein - 1500 is a good starting point for a ca jeffrey goal documented as of this encounter Visit Diagnoses Not on filedocumented in this encounter Care Teams Respiratory Support Technician Relationship Specialty Start Date End Date Alphonso Murphy MD PCP - General Family Medicine 02/19/[address] [place] [address] documented as of this encounter
--- OUTSIDE RECORDS SUMMARY | 2022-03-05 02:16 | XMS_ITS | Encounter Summary ---
:1955 Author Organization [facility] [place] [address] Care Team Providers Name Role Phone Alphonso Murphy MD Primary Care Provider [phone] Encounter Details Date Type Department Care Team Description 12/03/2020 TH Visit (TeleHealth) Same Day at [facility] [place] [address] Social History Tobacco Use Types Packs/Day [...] google or use a book such as [employer] (available on Rijuven) OR [employer] (if you're using a package, it will have calorie and protein info on the back) - The other thing to write down would be grams of protein - 1500 is a good starting point for a ca jeffrey goal documented as of this encounter Visit Diagnoses Not on filedocumented in this encounter Care Teams Architectural Drafter Relationship Specialty Start Date End Date Alphonso Murphy MD PCP - General Family Medicine 02/19/[address] [place] [address] documented as of this encounter
--- OUTSIDE RECORDS SUMMARY | 2022-03-05 02:16 | XMS_ITS | Encounter Summary ---
:1955 Author Organization [facility] [place] [address] Care Team Providers Name Role Phone Alphonso Murphy MD Primary Care Provider [phone] Reason for Referral Diagnostic Test (Routine) - Closed Specialty Diagnoses / Procedures Referred By Contact Refer red To Contact Radiology Diagnoses Multinodular goiter Lisa Singh MD [facility] Rad Ct Scan Procedures CT Neck Soft Tissue w Contrast (Generic) CT Neck Soft Tissue wwo Contrast [facility] [place] [address] [place] [address] Referral ID Status Reason Start Date Expiration Date Visits V isits Requested Authorized [id number] Closed Specialty 08/29/2020 02/26/2022 1 1 Service Requested Reason for Visit Diagnostic Test (Routine) - Closed Specialty Diagnoses / Procedures Referred By Contact Refer red To Contact Radiology Diagnoses Multinodular goiter Lisa Singh MD [facility] Rad Ct Scan Procedures CT Neck Soft Tissue w Contrast (Generic) CT Neck Soft Tissue wwo Contrast [facility] DR [facility] [place] [address] [place] [address] Referral ID Status Reason Start Date Expiration Date Visits V isits Requested Authorized [id number] Closed Specialty 08/29/2020 02/26/2022 1 1 Service Requested Encounter Details Date Type Department Care Team Description 09/09/[address] Scan at [facility] Lisa Singh, Multinodular goiter [facility] MD [facility] [address] GENERAL SURGERY [phone] [place] [address] Social History Tobacco Use Types Packs/Day Years Used Date Former Smoker Cigarettes 3 40 Quit: 10/08/19 11 Smokeless Tobacco: Never Used Alcohol Use Standard Drinks/Week Comments No 0 (1 standard drink = 0.6 oz pure alcoho l) Sex Assigned at Date Recorded Not on file documented as of this encounter Medications at Time of Discharge Medication Sig Dispensed Refills Start Date End Date montelukast (Singulair) Take 10 mg by mouth [...] 06/2019 (FLONASE) 50 route daily as mcg/actuation [place], needed. 04/06 Patient Suspension states that she only takes this when needed NYSTOP Powder apply topically twice 0 02/20/2019 a day if needed triamcinolone (KENALOG) 2 times daily as 0 2018 0.1 % Cream needed. ipratropium-albuterol Take 3 mLs by 0 12/02/2016 (DUONEB) 0.5 mg-3 nebulization every 6 mg(2.5 mg base)/3 mL hours as needed. Solution for Nebulization predniSONE (Deltasone) Take one tablet by 3 tablet 0 09/0212/17/2020 50 mg mouth at 13 hours, 7 TabletIndications: hours and 1 hour Multinodular goiter prior to scheduled exam gabapentin (Neurontin) Take 100 mg by mouth 0 04/08/2021 100 mg Capsule 2 times daily. 04/06 Patient states that she has not taken this in a while as the docs have not renewed her prescription Incruse Ellipta 62.5 INL 1 PUFF PO QD 0 0 12/17/2020 mcg/actuation Disk with Device metFORMIN (Glucophage) Take 2 tablets by 60 tablet 0 201901/20/2021 500 mg Tablet mouth 2 times daily (with meals). furosemide (LASIX) 40 40 mg daily. 1 12/16/2018 0 01/01/2021 mg Tablet SYMBICORT 160-4.5 1 puff 2 times daily. 0 019 11/06/2020 mcg/actuation HFA Aerosol Inhaler PROAIR HFA 90 Inhale 1-2 puffs into 1 01/03/2017 12/17/2020 mcg/actuation HFA the lungs every 6 Aerosol Inhaler hours as needed. documented as of this encounter Progress Notes Camila Skinner RN - 09/09/2020 9:08 AM EST Images from the original note were not included. Infiltration/Extravasation Scale Radha Masterson [id number] Room/bed info not found Infiltration appearance: Infiltration harm % for this extremity 40.8% Based on measurement calculation (greatest measurement X divided by length of extremity multiplied by 100= %) Considerations and Frausto: Consider the following: If the percentage of limb affected is <5% then select 1 If the percentage of limb affected is 6-25% then select 2 If the percentage of limb affected is 26-49% then select 3 If the percentage of limb affected is > 50% then always select 4 0 Skin blanched, translucent Gross edema > 6 inches (15 cm) in any direction Cool to touch Mild to moderate pain Possible numbness Infiltration appearance score: 3 Medication Name infiltrated is Omnipaque which is a (n) irritant Location of infiltration:right arm: anterior Measurement in cm of length and width of affected area---Affected extremity 11.0 cm X 20.0 cm Measurement of Circumference in cm of Infiltrated area of affected extremity 45.5 cm measured at 5.0cm distal to the R- AC fossa Measurement of Circumference in cm of Unaffected extremity 42.0 (at same location as affected extremity) Pulses present on affected extremity yes Medicated treatment given per policy/ order: hyaluronidase Plan for continued monitoring of infiltration/extravasation Name of MD contacted Dr. Nidia Hamm MD aware and was called in to assess the site by the tech. 9:09 AM Name of RN [facility] and had VAS paged to come treat the extravasation. 9:09 AM Name of Pharmacist if consulted NA 9:09 AM Plastics Provider contacted: no 9:09 AM Name of Plastics MD (if consulted) (Mandatory photo for infiltrations/ extravasations scoring a stage 2 or greater, but recommended forstage 1. Include measuring tape and identifier in the photo) GUM MACHINE OPERATOR CARING FOR THIS PATIENT WILL CONTINUE TO MONITOR AND WILL ASSUME CARE, VASCULAR ACCESS WILL NOT FOLLOW THIS EVENT AT THE SIGNING OF THIS NOTE. documented in this encounter Plan of Treatment [...] google or use a book such as [employer] (available on Oxynade) OR [employer] (if you're using a package, it will have calorie and protein info on the back) - The other thing to write down would be grams of protein - 1500 is a good starting point for a ca jeffrey goal documented as of this encounter Procedures Procedure Name Priority Date/Time Associated Diagnosis Comme nts CT NECK SOFT TISSUE Routine 09/09/2020 8:45 AM Multinodular go iter Results for this W CONTRAST EST procedure are i n the results section. documented in this encounter Results CT Neck Soft Tissue w Contrast (Generic) (09/09/2020 8:45 AM EST) Anatomical Region Laterality Modality Neck, Head Computed Tomography Specimen (Source) Anatomical Location Collection Method / Collectio n Time Received Time / Laterality Volume Impressions 09/09/2020 9:20 AM EST 1. ??Enlarged, multinodular thyroid gland. 2. ??Minimal indentation of the left tra cheal wall by the enlarged left thyroid lobe. 3. ??No cervical lymphadenopathy. Thank you for letting us participate in the care of this patient. For questions regarding this report, please contact e number below. ? Narrative 09/09/2020 9:20 AM EST EXAMINATION: CT NECK SOFT TISSUE W CONTRAST (GENERIC) CLINICAL HISTORY: Neck mass, multiple (A ge > 15y) Multinodular goiter TECHNIQUE: CT neck performed after the intravenous administration of 60 ml of OMNIPAQUE 350.00 mg/ml. COMPARISON: Thyroid ultrasound from outside [facility] 07/17/2020 FINDINGS: The images are degraded by motion artifa ct and beam hardening artifact at the level of the shoulders. Nodular enlargem ent of both thyroid lobes and the isthmus. The left lobe is much larger th an the right. Minimal indentation of the left tracheal wall at the level of the t hyroid. Limited evaluation of the remainder of the included aerodigestive tract secondary to motion artifact and breath hold resulting in a closed glotti s. There are 2 discrete nodules in the left lobe. The largest is located in the upper third and measures 3.5 cm on axial images, is slightly hypoattenuating and taller than wide. The second nodule is c oarsely calcified approximately 2.1 cm in size, located in the middle third of the lobe. 2 discrete nodules are seen in the right lobe. The largest measures 2.2 cm in the middle third of the lobe and demonst rates an incomplete thin rim of hyperdensity, likely calcification. This nodule is wider than tall. In the upper third of the lobe there is a 0.9 cm hypo attenuating nodule without calcification. No cervical lymphadenopathy. The orbits and included intracranial contents are unremarkable, aside from an incidentally noted partially empty sella. Electronic hearing aid in the right external audito ry canal. The teeth are absent. Mild degenerative changes in cervical spine. No aggressive osseous lesions. Procedure Note Tomás Hall MD - 09/09/2020Format ting of this note might be different from the original. EXAMINATION: CT NECK SOFT TISSUE W CONTR AST (GENERIC) CLINICAL HISTORY: Neck mass, multiple (A ge > 15y) Multinodular goiter TECHNIQUE: CT neck performed after the intravenous administration of 60 ml of OMNIPAQUE 350.00 mg/ml. COMPARISON: [facility] outside [facility] 07/17/2020 FINDINGS: The images are degraded by motion artifa ct and beam hardening artifact at the level of the shoulders. Nodular enlargem ent of both thyroid lobes and the isthmus. The left lobe is much larger th an the right. Minimal indentation of the left tracheal wall at the level of the t hyroid. Limited evaluation of the remainder of the included aerodigestive tract secondary to motion artifact and breath hold resulting in a closed glotti s. There are 2 discrete nodules in the left lobe. The largest is located in the upper third and measures 3.5 cm on axial images, is slightly hypoattenuating and taller than wide. The second nodule is c oarsely calcified approximately 2.1 cm in size, located in the middle third of the lobe. 2 discrete nodules are seen in the right lobe. The largest measures 2.2 cm in the middle third of the lobe and demonst rates an incomplete thin rim of hyperdensity, likely calcification. This nodule is wider than tall. In the upper third of the lobe there is a 0.9 cm hypo attenuating nodule without calcification. No cervical lymphadenopathy. The orbits and included intracranial contents are unremarkable, aside from an incidentally noted partially empty sella. Electronic hearing aid in the right external audito ry canal. The teeth are absent. Mild degenerative changes in cervical spine. No aggressive osseous lesions. IMPRESSION 1. Enlarged, multinodular thyroid gland. 2. Minimal indentation of the left trach eal wall by the enlarged left thyroid lobe. 3. No cervical lymphadenopathy. Thank you for letting us participate in the care of this patient. For questions regarding this report, please contact e number below. Lisa Singh MD IMG CT ORDERABLES documented in this encounter Visit Diagnoses Diagnosis Multinodular goiter Nontoxic multinodular goiter documented in this encounter Administered Medications Inactive Administered Medications - up to 3 most recent administrations Medication Order MAR Action Action Date Dose Rate Site hyaluronidase (Amphadase) Given 09/09/2020 8:45 AM 18 Units Right Arm (150 units/mL) injection EST 15-150 Units 15-150 Units, Subcutaneous, ONCE, 1 dose, On Tue09/09/20 at 0845, Hyaluronidase is supplied in a 1-mL vial at a concentration of 150 units/mL. Dilute with 9 mL of normal saline. This yields the desired concentration of 15 units/mL. Draw up 1 mL increments of the 15 unit/mL diluted solution into a 1-mL syringe with a 26-g needle. Instill 0.2 -mL aliquots of the 15 unit/mL solution at least every 2 - 3 centimeters or five evenly spaced aliquots subcutaneously around the periphery of the infiltrated area. Use a new 26-gauge needle for each injection. This is best done within one hour of the extravasation. Discard the remaining solution., STAT iohexoL (Omnipaque) (350 mg/mL) injection Given 09/09/2020 8:23 AM EST 110 mLs solution 0-200 mL 0-200 mL, Intravenous, ONCE PRN, 1 dose, Starting on Tue09/09/20 at 0805, Until Tue09/09/20 at 0823, Per Protocol, Warning Vesicant/Irritant Medication , Radiology Contrast, Routine documented in this encounter Care Teams Field Tax Auditor Relationship Specialty Start Date End Date Alphonso Murphy MD PCP - General Family Medicine 02/19/[address] [place] [address] [address] [place] [address] documented as of this encounter
--- OUTSIDE RECORDS SUMMARY | 2022-03-05 02:16 | XMS_ITS | Encounter Summary ---
:1955 Author Organization [facility] [address] Care Team Providers Name Role Phone Alphonso Murphy MD Primary Care Provider [phone] Encounter Details Date Type Department Care Team Description 11/07/2019 Telephone Weight and Wellness at [facility] [address] [place] [address] Social History Tobacco Use Types Packs/Day Years [...] google or use a book such as [employer] (available on VIOSO) OR [employer] (if you're using a package, it will have calorie and protein info on the back) - The other thing to write down would be grams of protein - 1500 is a good starting point for a ca jeffrey goal documented as of this encounter Visit Diagnoses Not on filedocumented in this encounter Care Teams Last Repairer Helper Relationship Specialty Start Date End Date Alphonso Murphy MD PCP - General Family Medicine 02/19/[address] [place] [address] documented as of this encounter
--- OUTSIDE RECORDS SUMMARY | 2022-03-05 02:16 | XMS_ITS | Encounter Summary ---
:1955 Author Organization [place] [address] Care Team Providers Name Role Phone Alphonso Murphy MD Primary Care Provider [phone] Encounter Details Date Type Department Care Team Description 09/17/2020 Orders Only [place] [facility] [place]ul Banegas Goiter (Primary Dx) [facility] [place] [address] [address] [phone] PULMONARY MEDICI [place], [place] [address] (Wo rk) Social History Tobacco [...] book such as Calorie Adalberto (available on Affashion) OR [employer] (if you're using a package, it will have calorie and protein info on the back) - The other thing to write down would be grams of protein - 1500 is a good starting point for a ca jeffrey goal documented as of this encounter Results Pulmonary Function Testing (11/06/2020 2:05 PM EDT) P athologist Signature FVC Actual 1.71 L [facility]AS PFT Pre-BD FVC Pre-BD % of 61 % COMPAS PFT Predicted FVC Predicted 2.79 L COMPAS PFT FVC Pre-BD -2.54 COMPAS PFT Z-Score FVC Lower 2.08 L COMPAS PFT Limits of Normal FEV1 Actual 1.19 L COMPAS PFT Pre-BD FEV1 Pre-BD % 54 % COMPAS PFT of Predicted FEV1 Predicted 2.19 L COMPAS PFT FEV1 Pre-BD -2.87 COMPAS PFT Z-Score FEV1 Lower 1.63 L COMPAS PFT Limits of Normal FEV1 / FVC 70 % COMPAS PFT Actual Pre-BD FEV1/FVC Pre-BD -1.21 COMPAS PFT Z-Score FEV1 / FVC LLN 67 % COMPAS PFT [id number] Actual 0.66 L/s COMPAS PFT Pre-BD [id number] Pre-BD 33 % COMPAS PFT % of Predicted [id number] 1.98 L/s COMPAS PFT Predicted [id number] Pre-BD -2.33 COMPAS PFT Z-Score DLCO Hb Actual 14.10 mL/min/mmHg COMPAS PFT Pre-BD DLCO Hb Pre-BD 77 % COMPAS PFT % of Predicted DLCO Hb Pre-BD -1.57 COMPAS PFT Z-Score DLCO Hb 18.38 mL/min/mmHg COMPAS PFT Predicted DLCO UNC ACT 14.10 mL/min/mmHg COMPAS PFT PRE-BD DLCO UNC PRE-BD 77 % COMPAS PFT % of PRED DLCO UNC PRE-BD -1.57 % COMPAS PFT Z-SCORE DLCO UNC 18.38 mL/min/mmHg COMPAS PFT Predicted DLCO/VA Actual 3.83 mL/min/mmHg COMPAS PFT Pre-BD /L DLCO/VA Pre-BD 89 % COMPAS PFT % of Predicted DLCO/VA Pre-BD -0.73 COMPAS PFT Z-Score DLCO/VA 4.29 mL/min/mmHg COMPAS PFT Predicted /L Specimen (Source) Anatomical Location Collection Method / Collectio n Time Received Time / Laterality Volume Narrative COMPAS PFT - 11/06/2020 2:05 PM EDT FINDINGS: FEV1 and FVC are reduced, FEV1/VC is normal. Diffusion capacity not adjusted for hemoglobin is normal. IMPRESSION: Spirom etry suggests restriction, however lung volumes are required to distinguish the possibility of restriction or air trapping. No diffusion impairment. Possible restrictive physiol ogy combined with a normal diffusion capacity may indicate chest wall and/or neuromuscular disorders. ??This pattern can also be seen in obesity noting BMI \R\80 kg/m\S\2. ??Patient nora ble to walk, but had low-normal oxyhemoglobin saturation at rest on 2LPM nasal cannula which inc reased during seated exercise. Procedure Note Unknown - 11/06/2020Formatting of this n ote might be different from the original. FINDINGS: FEV1 and FVC are reduced, FEV1 /VC is normal. Diffusion capacity not adjusted for hemoglobin is normal. IMPRESSION: Spirom etry suggests restriction, however lung volumes are required to distinguish the possibility of restriction or air trapping. No diffusion impairment. Possible restrictive physiol ogy combined with a normal diffusion capacity may indicate chest wall and/or neuromuscular disorders. This pattern can also be seen in obesity noting BMI \R\80 kg/m\S\2. Patient unabl e to walk, but had low-normal oxyhemoglobin saturation at rest on 2LPM nasal cannula which inc reased during seated exercise. Nakul Johnson MD PFT ORDERABLES Performing Organization Address City/State/ZIP Code Phon e Number COMPAS PFT documented in this encounter Visit Diagnoses Diagnosis Goiter - Primary Goiter, unspecified Goiter Goiter, unspecified documented in this encounter Care Teams Acoustical Tile Carpenters Supervisor Relationship Specialty Start Date End Date Alphonso Murphy MD PCP - General Family Medicine 02/19/[address] [place] [address] documented as of this encounter
--- OUTSIDE RECORDS SUMMARY | 2022-03-05 02:16 | XMS_ITS | Encounter Summary ---
:1955 Author Organization [facility] [address] Care Team Providers Name Role Phone Alphonso Murphy MD Primary Care Provider [phone] Encounter Details Date Type Department Care Team Description 09/17/2020 Telephone Pulmonology at [facility] [place] [address] Social History Tobacco Use Types Packs/Day [...] track (09/21/2019 12:34 PM EST) No Dimple Adasm RD Note: Formatting of this note might [...] google or use a book such as [employer] (available on Trada) OR fake company 2.[employer] (if you're using a package, it will have calorie and protein info on the back) - The other thing to write down would be grams of protein - 1500 is a good starting point for a ca jeffrey goal documented as of this encounter Visit Diagnoses Not on filedocumented in this encounter Care Teams Marketing Professional Relationship Specialty Start Date End Date Alphonso Murphy MD PCP - General Family Medicine 02/19/[address] [place] [address] documented as of this encounter
--- OUTSIDE RECORDS SUMMARY | 2022-03-05 02:16 | XMS_ITS | Encounter Summary ---
:1955 Author Organization [place] [address] Care Team Providers Name Role Phone Alphonso Murphy MD Primary Care Provider [phone] Encounter Details Date Type Department Care Team Description 11/06/2020 Hospital Encounter [place] [address] Social History Tobacco Use Types Packs/Day [...] 06/2019 (FLONASE) 50 route daily as mcg/actuation [place], needed. 04/06 Patient Suspension states that she [...] daily. 1 12/16/2018 0 01/01/2021 mg Tablet PROAIR HFA 90 Inhale 1-2 puffs into 1 01/03/2017 12/17/2020 mcg/actuation HFA the lungs every 6 Aerosol Inhaler hours as needed. documented as of this encounter Plan of [...] google or use a book such as [employer] (available on PureForge) OR [employer] (if you're using a package, it will have calorie and protein info on the back) - The other thing to write down would be grams of protein - 1500 is a good starting point for a ca jeffrey goal documented as of this encounter Procedures Procedure Name Priority Date/Time Associated Diagnosis Comme nts PULMONARY FUNCTION Routine 11/06/2020 2:05 PM Goiter Res ults for this TEST EDT procedure are i n the results section. documented in this encounter Results Pulmonary Function Testing (11/06/2020 [...] / FVC LLN 67 % [facility]AS PFT [id number] Actual 0.66 L/s COMPAS PFT Pre-BD [id number] Pre-BD 33 % COMPAS PFT % of Predicted [id number] 1.98 L/s COMPAS PFT Predicted [id number] Pre-BD -2.33 COMPAS PFT Z-Score DLCO Hb [...] in this encounter Visit Diagnoses Diagnosis Goiter Goiter, unspecified documented in this encounter Care Teams Site Planner Relationship Specialty Start Date End Date Alphonso Murphy MD PCP - General Family Medicine 02/19/[address] [place] [address] documented as of this encounter
--- OUTSIDE RECORDS SUMMARY | 2022-03-05 02:16 | XMS_ITS | Encounter Summary ---
:1955 Author Organization [facility] [place] [address] Care Team Providers Name Role Phone Alphonso Murphy MD Primary Care Provider [phone] Reason for Referral Consultation (Routine) - Closed Specialty Diagnoses / Procedures Referred By Contact Refer red To Contact Pulmonology Diagnoses Multinodular goiter Lisa Singh MD [facility] [address] [place] [address] [place] [address] [place] [address] Referral ID Status Reason Start Date Expiration Date Visits V isits Requested Authorized [id number] Closed Consult, 09/02/2020 09/02/2021 1 1 Test & Treat iagnostic Test (Routine) - Closed Specialty Diagnoses / Procedures Referred By Contact Refer red To Contact Radiology Diagnoses Multinodular goiter Lisa Singh MD [facility] Rad Ct Scan Procedures CT Neck Soft Tissue w Contrast (Generic) CT Neck Soft Tissue wwo Contrast [facility] [place] [address] [place] [address] Referral ID Status Reason Start Date Expiration Date Visits V isits Requested Authorized [id number] Closed Specialty 08/29/2020 02/26/2022 1 1 Service Requested Reason for Visit Reason Comments Establish Care Consultation (Routine) - Closed Specialty Diagnoses / Procedures Referred By Contact Refer red To Contact General Surgery Diagnoses Thyroid nodule 65 y/o with multinodular goiter, BMI 71, with compressive symptoms, isthmal nodule ~ 1.5 cm, left lobe nodule ~3.2 cm, difficult to biopsy Az Mcmullen Sorensen, Liya Morton, Procedures 65 y/o with multinodular goiter, BMI 71, with compressive symptoms, isthmal nodule ~ 1.5 cm, left lobe nodule ~3.2 cm, difficult to biopsy MD GARCIA [facility] Rno Thompson [facility] ENDOCRINOLOGY [place] [address] Fax: Referral ID Status Reason Start Date Expiration Date Visits V isits Requested Authorized [id number] Closed Consult, 08/12/2020 08/12/2021 1 1 Test & Treat Encounter Details Date Type Department Care Team Description 08/29/2020 Office Visit General Surgery at Lisa Singh MD Multinodular goiter [facility] (Primary Dx) [facility] [address] GENERAL SURGERY [place], [place] [id number] [phone] Social History Tobacco Use Types Packs/Day Years Used Date Former Smoker Cigarettes 3 40 Quit: 10/08/19 11 Smokeless Tobacco: Never Used Alcohol Use Standard Drinks/Week Comments No 0 (1 standard drink = 0.6 oz pure alcoho l) Sex Assigned at Date Recorded Not on file documented as of this encounter Last Filed Vital Signs Vital Sign Reading Time Taken Comments Blood Pressure 141/68 08/29/2020 9:16 AM EST Pulse 75 08/29/2020 9:16 AM EST Temperature 36.7 ??C (98.1 ??F) 08/29/2020 9:16 AM EST Respiratory Rate 16 08/29/2020 9:16 AM EST Oxygen Saturation 95% 08/29/2020 9:16 AM EST on 3L Inhaled Oxygen Concentration - - Weight 186 kg (410 lb) 08/29/2020 9:16 AM EST pt report ed Height 161.3 cm (5' 3.5) 08/29/2020 9:16 AM EST Body Mass Index 71.48 08/29/2020 9:16 AM EST documented in this encounter Patient Instructions Patient InstructionsLisa Singh MD - 08/29/2020 9:00 AM EST Plan for CT of the neck to better evaluate your thyroid. I will put in referral to pulmonology for your COPD here at [facility]. I will call you back after CT scan is done and after pulmonology has evaluated you. documented in this encounter Progress Notes Lisa Singh MD - 08/29/2020 9:00 AM EST Images from the original note were not included. Endocrine Surgery Consultation Dear Providers, Thank you for referring your patient to our [facility] Endocrine Surgery Clinic. Ms. Radha Masterson is a 65 y.o. female referred by Dr. Mcmullen for evaluation of multiple thyroid nodules. This was initially noted incidently on imaging. Referred for MNG with compression symptoms. No biopsy performed due to body habitus and [...] 71), CHF, Hx of PE, recurrent UTIs. Additionally, the patient complained of the following symptoms: Review of Systems: Constitutional: Weight loss or Weight gain No, Fatigue No, Feeling weak No Eyes: Vision changes No ENT: Lump in the throat sensation YES, Difficulty swallowing YES, Hoarseness/Voice changes No; Neck enlargement No Cardiovascular: Palpitations No Respiratory: Shortness of breath No Gastrointestinal: Constipation No, Abdominal pain No; Heartburn/Reflux No Musculoskeletal: Painful muscles/joints No, Bone pain No, Muscles cramps in arms/legs No Integumentary: Dry skin No; Hair loss No Psych: Anxious/Restless/Agitated YES, Depressed YES Endo: Hot flashes/flushing No; Feeling cold/chilly YES Neuro: Tremor No, Difficulty sleeping YES, Headaches No, Forgetful No, Difficulty concentrating No Heme: Negative Immunologic: Negative Genitourinary: Frequent urination No, Nighttime urination No Past Medical History: Past Medical History: Diagnosis Date ??? JODY (acute kidney injury) 01/16/2017 ??? COPD (chronic obstructive pulmonary disease) ??? Depression ??? Hypertension ??? DAVID treated with BiPAP ??? PE (pulmonary thromboembolism) Heart Attack or Heart Disease, Lung disease, Hypertension and Trauma due to fall c/w hemothorax requiring drainage Past Surgical History: Past Surgical History: Procedure Laterality Date ??? [...] LCCK/AMAN LPS/ANTIBIOTIC CEMENT ProcedureDate: 11/23/2005 Family History: The family history includes Diabetes in her maternal aunt, maternal grandmother, mother, paternal aunt, and paternal grandmother.. There is no history of thyroid cancer. No pituitary, pancreas or adrenal tumors. No parathyroid disease. Social History: The patient reports that she quit smoking about 9 years ago. Her smoking use included cigarettes. She has a 120.00 pack-year smoking history. She has never used smokeless tobacco. The patient reports no history of alcohol use. Former smoker. She does not do any professional public speaking or singing. Unemployed. Allergies: Allergies Allergen Reactions ??? Iodinated Contrast Media ??? Iodine And Iodide Containing Products CIS - Rash, CIS - Rash ??? Morphine Rash ??? Oxycodone Rash Medications: Current Outpatient Medications: ??? aspirin 325 mg [...] 0 ??? fluticasone propionate (FLONASE) 50 mcg/actuation Ferris, Suspension, SHAKE LQ AND U 1 SPR IEN D,Disp: , Rfl: ??? NYSTOP Powder, apply topically twice a day if needed, Disp: , Rfl: 0 ??? furosemide (LASIX) 40 mg Tablet, 80 mg daily., Disp: , Rfl: 1 ??? SYMBICORT 160-4.5 mcg/actuation HFA Aerosol Inhaler, 1 puff 2 times daily., Disp: , Rfl: 0 ??? triamcinolone (KENALOG) 0.1 % Cream, apply [...] hours as needed., Disp: , Rfl: 0 Physical Exam: There were no vitals filed for this visit. There is no height or weight on file to calculate BMI. Constitutional: Well-appearing, No acute distress Neuro: Alert, Answers questions appropriately Eyes: Extraocular movements intact, no proptosis or lid lag ENT: Mucous membranes moist. Trachea midline. Thyroid: difficult to exam do to body habitus. Lymph: No cervical or supraclavicular lymphadenopathy Heart: Regular rate Lungs: On oxygen, slightly labored when speaking. Extremities: +edema Skin: Warm and dry. No rashes. Psych: Normal affect Laboratory data: Lab Results Component Value Date TSH 1.38 09/10/2019 Surgeon Performed Ultrasound - Thyroid and Cervical Lymph Nodes I performed an ultrasound at our clinic visit today using a 12 mHz linear ultrasound transducer. Thethyroid, parathyroid, and central and bilateral lateral neck lymph node basins were evaluated. THYROID EXAM: The exam was limited due to patient positioning and body habitus. She did clearly have a large left thyroid nodule that I could appreciated. Review of Additional Imaging: Thyroid Ultrasound: 07/2020 Assessment and recommendations Ms. Radha Masterson is a 65 y.o. female and has a multinodular goiter with compressive symptoms. The nodule on the left is quite large and likely contributing to her symptoms. Unfortunately imaging evaluation is limited due to body habitus. As well any biopsy would be challenging due to this - she does ca ve a lot of motion with breathing but I do not think this is a limiting factor to the biopsy, but I just can't see the nodules well enough to perform FNA. I have recommended getting a CT neck to help us see the anatomy of her thyroid. I suspect she will need her thyroid out and in this case, I would forgo any biopsy and just plan for total thyroidectomy up front. The bigger concern is her health and if we will be able to get her safely through a surgery with general anesthesia and be able to remove the breathing tube afterwards. She reports PFTs were done last year but she does not currently have apulmonologist. I would like her set up with a awning hanger supervisor here for evaluation and risks stratify her regarding getting general anesthesia and optimize her COPD. In addition - she may nee cardiac evaluation - she uses electric wheelchair to get around so somewhat difficult to assess based on activity. I will follow up with Radha after her CT scan and after her pulmonology evaluation. Please let me know if you have any questions or concerns regarding our visit today. Sincerely, Lisa Singh MD, FACS Drywall Application Supervisor, Section of General Surgery Division of Endocrine Surgery [facility] Data There is no height or weight on file to calculate BMI. Patient Ethnicity & Race Ethnic Group Patient Race Not nor White Prior neck irradiation:No Prior anterior neck surgery: No Pre-operative laryngoscopy: No Anti-coagulation meds (warfarin, heparin, oral thrombin or factor Xa inhibitors): No. Will the patient stop this medication for surgery? N/A Anti-platelet meds (aspirin, clopidogrel): YES, Will the patient stop this medication for surgery? No Substernal component: YES Symptoms of compression: YES FNA: no FNA Classification: Mitchell n/a documented in this encounter Plan of Treatment Scheduled Referrals Name Type Priority Associated Diagnoses Order S chedule Referral to Outpatient Referral Routine Multinodular goiter O rdered: Pulmonology 09/02/2020 documented as of this encounter Goals Goal [...] google or use a book such as [employer] (available on [employer]) OR Immunetics (if you're using a package, it will have calorie and protein info on the back) - The other thing to write down would be grams of protein - 1500 is a good starting point for a ca jeffrey goal documented as of this encounter Results CT Neck Soft Tissue [...] report, please contact e number below. ? Electronically signed by: Tomás shipman MD, [facility] ([phone]), at 09/09/2020 9:20 AM Narrative 09/09/2020 9:20 AM EST EXAMINATION: CT NECK SOFT TISSUE W CONTRAST (GENERIC) CLINICAL HISTORY: Neck mass, multiple (A ge > 15y) Multinodular goiter TECHNIQUE: CT neck performed after the intravenous administration of 60 ml of OMNIPAQUE 350.00 mg/ml. COMPARISON: Thyroid ultrasound from outside [facility] 07/17/2020 FINDINGS: The images are degraded [...] 350.00 mg/ml. COMPARISON: Thyroid ultrasound from outside [facility] 07/17/2020 FINDINGS: The images are degraded [...] this report, please contact e number below. Electronically signed by: Tomás shipman MD, [facility] ([phone]), at 09/09/2020 9:20 AM Lisa Singh MD IMG CT ORDERABLES documented in this encounter Visit Diagnoses Diagnosis Multinodular goiter - Primary Nontoxic multinodular goiter Multinodular goiter Nontoxic multinodular goiter documented in this encounter Care Teams Photovoltaic Installer Relationship Specialty Start Date End Date Alphonso Murphy MD PCP - General Family Medicine 02/19/[address] [place] [address] documented as of this encounter
--- OUTSIDE RECORDS SUMMARY | 2022-03-05 02:16 | XMS_ITS | Encounter Summary ---
:1955 Author Organization [facility] Address [address] [place] [address] Care Team Providers Name Role Phone Alphonso Murphy MD Primary Care Provider [phone] Encounter Details Date Type Department Care Team Description 01/20/2021 Office Visit Pulmonology at [facility] Travis, Chronic respiratory failure with hypoxia and hypercapnia (Primary Dx); [facility] Mike Nelson MD Class 3 obesity with alveolar hypoventil ation, serious comorbidity, and body mass index (BMI) greater than or equal to 70 in adult; [address] [facility] Supplemental oxygen [facility] t; [place], [place] CENTER 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 ypoventilation disorder; [id number] PULMONARY Multinodular goiter; [phone] [facility] Obesity hypoventilation syndrome; [place] DAVID (obstructiv e sleep apnea) [address] Social History Tobacco Use Types Packs/Day Years Used Date Former Smoker Cigarettes 3 40 Quit: 10/08/19 11 Smokeless Tobacco: Never Used Alcohol Use Standard Drinks/Week Comments No 0 (1 standard drink = 0.6 oz pure alcoho l) Sex Assigned at Date Recorded Not on file documented as of this encounter Last Filed Vital Signs Vital Sign Reading Time Taken Comments Blood Pressure 116/68 01/20/2021 10:54 AM EDT Pulse 83 01/20/2021 10:54 AM EDT Temperature 37 ??C (98.6 ??F) 01/20/2021 10:54 AM EDT Respiratory Rate 30 01/20/2021 10:54 AM EDT Oxygen Saturation 93% 01/20/2021 10:54 AM EDT Inhaled Oxygen Concentration - - Weight 190.5 kg (420 lb) 01/20/2021 10:54 AM EDT stated Height 156.8 cm (5' 1.75) 01/20/2021 10:54 AM EDT stat ed Body Mass Index 77.44 01/20/2021 10:54 AM EDT documented in this encounter Patient Instructions Patient InstructionsTanMike block MD - 01/20/2021 10:30 AM EDT It was a pleasure seeing you today. Here is a brief reminder of what we discussed: ??? Great to see you are largely doing well. ??? I hope your surgery goes well. I will contact Dr. Edwards to be sure any further testing from a cardoilogy standpoint is arranged Summary of the plan going forward: ??? Continue with same medications as needed ??? Follow up with me in 6 months Please do not hesitate to get in touch with my office with any questions or if new issues should arise before our next scheduled visit. You can reach me by phone ([phone]) or by sending a [employer] message. Mike Coughlin MD documented in this encounter Progress Notes Mike Robles MD - 01/20/2021 10:30 AM EDT Images from the original note were not included. [facility] Section of Pulmonary and Critical Care Medicine Outpatient Consultation Follow-up Date of Encounter: 01/20/2021 This was a [id number]-[id number] office visit. Referring Provider: Alphonso Murphy MD [address] [place], [place] [address] [address] [place] [address] Brief Summary Radha Masterson is a 65 y.o. with a history of morbid obesity (BMI 73), DAVID with OHS on nocturnal BiPAP, and related chronic hypercarbia with mild hypoxemia due to obesity-related ventilatory impairment and perhaps mild, if any, obstructive lung disease, and mild PH by TTE who was referred to me on 11/06/20 pre-operative risk assessment prior to planned endocrine surgery for a multinodular goiter causingtracheal compression. She was prevoiusly being seen in weight loss clinic, but had not re-connected since the COVID pandemic. I reviewed extensive past records which included normal chest imaging on multiple occasions. I felt the audible wheeze she hears at times is likely upper airway in origin. She was on her baseline 3L of oxygen. I advised that she should have needed surgery, re- engage with weight loss/wellness clinic as weight loss is hickman to treating many of her underlying co-morbidities, especially suspected OHS with hypercarbia, hypoxemia and PH. VBG just after that visit confirmed chronic hypercarbia with 7.35/54. I also referred to her sleep medicine for updated sleep testing and possibleNIV titration. Since last visit: -seen by Deysi York in Sleep Medicine on 12/17/20 - planned for BiPAP titration study starting at with TCO2 -scheduled in January -seen by Dr. Edwards in Cardiology 01/01/21 for pre-op cardiac eval - recommended updated TTE MARGY with plan to proceed with surgery if stable PAP and normal RV function. Rec increase lasix to 80mg dailyand start spironolactone 25mg daily with f/u in 2 weeks. -TTE 01/06 shows stable PASP from 2017 - see below Today: -Overall she is feeling about the same as our last visit. Her legs are a bit less swollen and tight since the increase in lasix and adding spironolactone. She understandably has been urinating more -She is no longer on LAMA therapy as she really didn't feel it provided any benefit. Uses albuterol MDI morning and nightly on a schedule rather than PRN. At times will use DuoNeb, though certainly notdaily, if she is having more dyspnea. More often though she finds that if she feels more winded she may put her BiPAP mask on and feels better within minutes -Likely to have surgery March 03 - she is not certain if cardiology clearance has been provided -She does note that her breathing can feel a bit worse when it is very hot as it was the last few days -Level of function is about the same -She has not re-engaged with weight loss program. In part she is hesitant bc she is already going toso many appointments etc. She has stopped drinking soda entirely. -Using BiPAP at night with 4.5L O2 bleed in Pulmonary Medications: DuoNeb PRN Albuterol MDI - taking QAM/PM scheduled Review of Systems: Respiratory review of systems noted above. Patient denies headaches, vision changes, recent fevers or chills, unexplained weight changes, abdominal pain, nausea, vomiting, diarrhea. Remainder of 11-point ROS negative unless otherwise stated in HPI. I reviewed the patient's documented past medical, surgical, family, and social history and made changes in the eletronic record where necessary. Current Medications: Current Outpatient Medications: ??? metFORMIN (GLUCOPHAGE) 1,000 mg Tablet, Take 1,000 mg by mouth 2 times daily., Disp: , Rfl: ??? furosemide (Lasix) 40 mg Tablet, Take 2 tablets by mouth daily., Disp: 180 tablet, Rfl: 3 ??? spironolactone (Aldactone) 25 mg Tablet, Take 1 tablet by mouth daily., Disp: 90 tablet, Rfl: 3 ??? OXYGEN-AIR DELIVERY SYSTEMS [facility], 2 L., Disp: , Rfl: ??? aspirin 325 mg Tablet, Take 325 mg by mouth Daily., Disp: , Rfl: ??? ascorbic acid, vitamin C, (VITAMIN C) 1,000 mg Tablet, Take by mouth., Disp: , Rfl: ??? silver sulfADIAZINE (SILVADENE) 1 % Cream, Apply topically Twice daily., Disp: , Rfl: ??? gabapentin (Neurontin) 100 mg Capsule, Take 100 mg by mouth 2 times daily., Disp: , Rfl: ??? Mag 64 64 mg Tablet, Delayed Release (E.C.), TAKE 1 TABLET BY MOUTH ONCE DAILY, Disp: , Rfl: ??? citalopram (CELEXA) 20 mg Tablet, Take 20 mg by mouth daily., Disp: , Rfl: ??? ALBUTEROL INHL, Inhale 2 puffs into the lungs daily., Disp: , Rfl: ??? buPROPion (WELLBUTRIN) 100 mg Tablet, Take 100 mg by mouth., Disp: , Rfl: ??? busPIRone (BUSPAR) 5 mg Tablet, Take 10 mg by mouth 3 times daily., Disp: , Rfl: ??? potassium chloride (MICRO-K) 10 mEq Capsule, Sustained Release, Take 20 mEq by mouth 2 times daily., Disp: , Rfl: ??? clotrimazole (LOTRIMIN) 1 % Cream, apply topically three times a day, Disp: , Rfl: 0 ??? fluticasone propionate (FLONASE) 50 mcg/actuation [place], Suspension, SHAKE LQ AND U 1 SPR IEN D,Disp: , Rfl: ??? NYSTOP Powder, apply topically twice a day if needed, Disp: , Rfl: 0 ??? triamcinolone (KENALOG) 0.1 % Cream, apply topically to RASH ON LEGS twice a day, Disp: , Rfl: 0 ??? ipratropium-albuterol (DUONEB) 0.5 mg-3 mg(2.5 mg base)/3 mL Solution for Nebulization, Take 3 mLs by nebulization every 6 hours as needed., Disp: , Rfl: 0 ??? montelukast (Singulair) 10 mg Tablet, Take 10 mg by mouth nightly., Disp: , Rfl: ??? ergocalciferol (Vitamin D2) 50,000 unit Capsule, TAKE 1 CAPSULE BY MOUTH 2 TIMES A WEEK FOR 24 DOSES (Patient not taking: Reported on 01/20/2021), Disp: 24 capsule, Rfl: 0 Allergies: Allergies Allergen Reactions ??? Iodine And Iodide Containing Products rash ??? Oxycodone Rash ??? Morphine Rash Other reaction(s): PRURITIS Physical Examination: BP 116/68 Pulse 83 Temp 37 ??C (98.6 ??F) (Temporal) Resp 30 Ht 156.8 cm (5' 1.75) Comment:stated Wt (!) 190.5 kg (420 lb) Comment: stated SpO2 93% BMI 77.44 kg/m?? on 3L pulse oxygen General: Morbidly obese, NAD HEENT: No pharyngeal erythema or exudates, no thrush, no scleral icterus, no conjunctival pallor, crowded upper airway Cardiovascular: Regular rate, distant heart sounds Respiratory: No increased work of breathing, good air movement throughout, faint end expiratory wheeze only with forced exhalation, no crackles Abdomen: Soft, non-tender Extremities: B/L LE edema, largely non pitting, with skin thickening from chronic venous stasis Skin: No rashes Neurologic: Alert, oriented, and communicative. No facial asymmetry or dysarthria. Symmetric gaze. Psychologic: Normal mood and affect. Pertinent Diagnostics - I personally reviewed the following with my comments included below: Labs: 11/06/20 VBG 7. Chest Imaging: CT Chest 11/29/18 showed significant motion artifact and basilar atelectasis without interstitial lung disease or emphysema. No PE at that time. Pulmonary Function Tests: Date FVC FVC % [...] likely obesity in her case. Echocardiograms: TTE 01/06/21 -LV normal size, mild concentric LVH. EF 60%. Diastolic dysfunction with inc L sided filling pressurs -LA mildly dilated -RV mildly dilated with normal function. ePASP 52 (RA 8) (56 in 2017) -RA mildly dilated -mild TR TTE 2019 - ePASP 45-50 with normal biventricular function TTE in 2017 - technically limited but showed mild LVH with hyperdynamic function (EF75%). RV probably normal in size and function. No significant valvular disease. Estimated RVSP 56 (RA3) indicated moderate PH Diagnoses Morbid Obesity Obesity Hypoventilation Syndrome DAVID Pulmonary Hypertension - largely group III Supplemental oxygen dependence Multinodular goiter with tracheal compression Chronic respiratory failure with hypercapnia and hypoxemia ?? Impression: Ms. Masterson is doing well with no intercurrent respiratory issues since I met her in October. See my impression from 11/06 for more detailed discussion. Her oxygen requirement and limitations are most likely due to obesity-related ventilatory issues - V/Q mismatching and dependent atelectasis - rather thantrue fixed airway obstruction. She does have blood gas evidence of chronic hypercarbia which confirms the diagnosis of OHS with DAVID. She has been doing well with nocturnal BiPAP and will have a repeat NIV titration soon with new recognition of chronic hypercarbia to see if further titration aimed at normalizing hypercarbia may be beneficial and protective. Her most recent TTE shows a stable PASP [id number] though I will defer to Dr. Edwards to make further comment prior to planned surgery. To the extent that she has any true obstructive lung disease, it is mild. At this point I believe she is at low risk for post-operative pulmonary complications including respiratory failure, PNA, and atelectasis (ARISCAT 11 points = 1.6% risk) - lower than prior assessment as she has not had any recent infectious issues. Risk of mechanical ventilation >48hrs after surgery based on De La Cruz calculator is 6.8% based on being partially dependent, ASA 3-4. There is no spirometric cutoff level that precludes necessary surgery - she is to have repeat PFTs today. It will be veryimportant for anesthesiologists and post- operative area to be aware of underlying DAVID and OHS in terms of approaching her ventilation and post-extubation period where she will likely need non-invasive v entilation as she recovers from anesthesia. ?? Recommendations: Re: Surgery -She should proceed with needed and indicated surgery without additional pulmonary testing -Recommend low VT ventilation for all patients and close attention should be paid to underlying DAVID/OHS in post-operative setting. May need period of NIV after surgery while recovering from anesthesia.Would use her home BiPAP settings as a guide - refer to sleep medicine notes and upcoming NIV titration to guide. -She should get other routine care to reduce risk of post-operative pulmonary complications such as incentive spirometry, VTE PPx, adequate pain control, early mobilization, and airways clearance -Use nebulized bronchodilators as necessary given she is not on any standing long-acting bronchodilators -Follow up with Dr. Edwards in Cardiology as planned ?? Re: other issues -Encouraged her to consider re-connecting with weight loss clinic. Acknowledged that it would mean more health care encounters and that she has many appointments of late, but pointed out that in the long run, losing weight will help her to manage co-morbidities that relate to her weight and lead to the need for multiple clinic visits. Essentially, she may need less care and be healthier if she was successful in losing weight. -Follow up with NIV titration with sleep medicine later this month -Follow up with me in 6 months. Sooner if new issues arise. Mike Robles MD [facility] Warranty Coordinatorcash applications representative Pulmonary and Critical Care Medicine [place] [phone] [email or web address] documented in this encounter Plan of Treatment [...] google or use a book such as [employer] (available on [employer]) OR [employer] (if you're using a package, it will have calorie and protein info on the back) - The other thing to write down would be grams of protein - 1500 is a good starting point for a ca jeffrey goal documented as of this encounter Visit Diagnoses Diagnosis Chronic respiratory failure with hypoxia and hypercapnia - Primary Class 3 obesity with alveolar hypoventil ation, serious comorbidity, and body mass index (BMI) greater than or equal to 70 in adult Supplemental oxygen dependent Dependence on supplemental oxygen 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 ypoventilation disorder Other chronic pulmonary heart diseases Multinodular goiter Nontoxic multinodular goiter Obesity hypoventilation syndrome DAVID (obstructive sleep apnea) Obstructive sleep apnea (adult) (pediatr ic) documented in this encounter Care Teams Veterinary Epidemiologist Relationship Specialty Start Date End Date Alphonso Murphy MD PCP - General Family Medicine 02/19/[address] [place] [address] documented as of this encounter
--- OUTSIDE RECORDS SUMMARY | 2022-03-05 02:16 | XMS_ITS | Encounter Summary ---
:1955 Author Organization [facility] [place] [address] Care Team Providers Name Role Phone Alphonso Murphy MD Primary Care Provider [phone] Encounter Details Date Type Department Care Team Description 11/07/2019 Telephone Weight and Wellness at [address] [facility] [address] [place] [address] [place] [address] Social History Tobacco Use Types Packs/Day Years [...] google or use a book such as [employer] [facility] (available on [employer]) OR [employer] (if you're using a package, it will have calorie and protein info on the back) - The other thing to write down would be grams of protein - 1500 is a good starting point for a ca jeffrey goal documented as of this encounter Visit Diagnoses Not on filedocumented in this encounter Care Teams Cable Tester Relationship Specialty Start Date End Date Alphonso Murphy MD PCP - General Family Medicine 02/19/[address] [place] [address] documented as of this encounter
--- OUTSIDE RECORDS SUMMARY | 2022-03-05 02:16 | XMS_ITS | Encounter Summary ---
:1955 Author Organization [facility] [place] [address] Care Team Providers Name Role Phone Alphonso Murphy MD Primary Care Provider [phone] Encounter Details Date Type Department Care Team Description 07/17/2020 Ancillary Procedure Radiology Library at Josué Murphy [facility] [address] [id number] [phone] Social History Tobacco Use Types Packs/Day Years [...] book such as Calorie Adalberto (available on [employer]) OR [employer] (if you're using a package, it will have calorie and protein info on the back) - The other thing to write down would be grams of protein - 1500 is a good starting point for a ca jeffrey goal documented as of this encounter Procedures Procedure Name Priority Date/Time Associated Comments Diagnosis FILM LIBRARY STORAGE Routine 07/17/2020 12:00 AM Results for this ONLY ULTRASOUND EST procedure ar e in STUDY the results section. documented in this encounter Results Film Library- Storage Only Ultrasound Study (07/17/2020 12:00 AM EST) Specimen (Source) Anatomical Location Collection Method / Collectio n Time Received Time / Laterality Volume Narrative RAD - 07/18/2020 10:04 AM EST This exam is auto-finalizing. It's purpo se is for storage only. Alphonso Murphy MD [facility] FILM LIBRARY ORDERABLES Performing Organization Address City/State/ZIP Code Phon e Number [place], [place] documented in this encounter Visit Diagnoses Not on filedocumented in this encounter Care Teams Landscape Gardener Relationship Specialty Start Date End Date Alphonso Murphy MD PCP - General Family Medicine 02/19/[address] [place] [address] documented as of this encounter
--- OUTSIDE RECORDS SUMMARY | 2022-03-05 02:16 | XMS_ITS | Encounter Summary ---
:1955 Author Organization [facility] [place] [address] Care Team Providers Name Role Phone Alphonso Murphy MD Primary Care Provider [phone] Reason for Visit Reason Comments Right Wrist Pain right wrist pain continued, Discuss EMG results from 10/21 Encounter Details Date Type Department Care Team Description 05/27/2020 Office Visit [place] [facility], Neuritis of right ulnar nerv e; [facility] Osmin Velasquez Jr., MD Carpal [place] [address] CENTER [phone] ORTHOPAEDIC SURGERY [place], [place] [address] Social History Tobacco Use Types [...] Sign Reading Time Taken Comments Blood Pressure - - Pulse - - Temperature - - Respiratory Rate - - Oxygen Saturation - - Inhaled Oxygen Concentration - - Weight 176.9 kg (390 lb) 05/27/2020 3:48 PM reported NWB EDT Height 161.3 cm (5' 3.5) 05/27/2020 3:48 PM reported NWB EDT Body Mass Index 68 05/27/2020 3:48 PM EDT documented in this encounter Progress Notes Osmin Castañeda Jr., MD - 05/27/2020 3:20 PM EDT Radha Masterson [id number] HISTORY OF PRESENT ILLNESS: Here for ongoing care RIGHT hand numbness after fall from wheelchair. NCV/EMG from October notable for RIGHT median motor latency 4.4msec and normal EMG, with ulnar conduction velocity 44 M/sec. She notes continued symptoms in thumb and small finger at rest and with use. The patient's medications, allergies, past medical history, past surgical history, family history and social history were reviewed and are documented in Epic. Review of systems is negative other than the chief complaint. PHYSICAL EXAMINATION: Tinel's positive at wrist and elbow. Local sensitivity at wrist. Decreased sensation median distribution on right. RADIOGRAPHS: deferred IMPRESSION: RIGHT CTS and cubital tunnel syndrome PLAN: The nature of the problem and the individual situation was discussed at length with the patient. Consistent with treatment of the primary diagnosis, we have recommended CTS injection and elbow pads to protect the ulnar nerve. Procedure: Joint injection After obtaining informed consent, the RIGHT palm was prepped and injected with 2cc lidocaine and 1ccof 6mg/cc betamethasone. Patient tolerated the procedure well and without adverse event. We will see the patient back in follow-up on prn basis per sxs. Osmin Castañeda Jr, MD Department of Orthopaedics [facility] documented in this encounter Plan of Treatment [...] google or use a book such as [employer] (available on [employer]) OR [employer] (if you're using a package, it will [...] syndrome documented in this encounter Care Teams Seedling Puller Relationship Specialty Start Date End Date Alphonso Murphy MD PCP - General Family Medicine 02/19/16 [address] [place] [address] documented as of this encounter
--- OUTSIDE RECORDS SUMMARY | 2022-03-05 02:16 | XMS_ITS | Encounter Summary ---
:1955 Author Organization [place] [address] Care Team Providers Name Role Phone Alphonso Murphy MD Primary Care Provider [phone] Reason for Referral Diagnostic Test (Routine) - Closed Specialty Diagnoses / Procedures Referred By Contact Refer red To Contact Cardiology Diagnoses Pulmonary hypertension Tex Edwards MD [facility] Non-Inv Card Lab Procedures Echocardiogram Transthoracic([facility] or [facility], [facility]) [facility] DR [facility] [place] [address] [place] [address] Fax: Referral ID Status Reason Start Date Expiration Date Visits V isits Requested Authorized [id number] Closed Specialty 01/01/2021 01/01/2022 1 1 Service Requested Reason for Visit Consultation (Urgent) - Closed Specialty Diagnoses / Procedures Referred By Contact Refer red To Contact Cardiology Diagnoses Pulmonary hypertension please re-evaluate (last seen 02/2019) pHTN and HFpEF in patient scheduled for upcoming thyroidectomy 01/05/2021. Patient reports worsening O2 requirement, leg swelling, orthopnea. Last TTE 02/2019. Morales Griffith MD D'Anna, Susan P, DEISY [facility] D R [facility] ANESTHESIOLOGY DEPT [place] [address] [place] [address] Fax: Referral ID Status Reason Start Date Expiration Date Visits V isits Requested Authorized [id number] Closed Consult, 12/09/2020 12/09/2021 1 1 Test & Treat Encounter Details Date Type Department Care Team Description 01/01/2021 Office Visit Cardiology at [facility] [place] [place] Tex Edwards, Pulmonary hypertension; [facility] Chronic heart failure with preserved [place] [address] CARDIOLOGY DEPT. [phone] [place], [place] [address] Social History Tobacco Use Types [...] Sign Reading Time Taken Comments Blood Pressure 139/54 01/01/2021 9:03 AM EDT Pulse 78 01/01/2021 9:03 AM EDT Temperature - - Respiratory Rate - - Oxygen Saturation 93% 01/01/2021 9:03 AM EDT 3l Inhaled Oxygen Concentration - - Weight 190.5 kg (420 lb) 01/01/2021 9:03 AM EDT Height 160 cm (5' 3) 01/01/2021 9:03 AM EDT Body Mass Index 74.4 01/01/2021 9:03 AM EDT documented in this encounter Progress Notes Tex Edwards MD - 01/01/2021 9:00 AM EDT Images from the original note were not included. CARDIOVASCULAR MEDICINE Pulmonary Hypertension Clinic [place] [id number] Subjective Identification Cyn Masterson is a 65 y.o. patient of Alphonso Murphy MD with the following medical problems 1. Obstructive sleep apnea-- initial evaluation in 2012 at [facility] with AHI of 25. on BiPAP. Titration study in 2018 lead to BiPAP of 23/19. 2. Chronic hypoxemia--- attributed to atelectasis and V/Q mismatch (see notes of Dr. Robles) 3. Hypercapnea---- pCO2 of 54 on VBG in October 2020 4. Hx of smoking--- quit at age 42 without airflow obstruction 5. Multinodular goiter-- with compressive symptoms 6. Obesity---- class III 7. Pulmonary hypertension-- PASP 45-50 in February [address] [facility] Present Illness Seen today at request of surgery for preoperative evaluation prior to thyroid surgery. Last seen in PH clinic in 2018. I felt her PH was likely secondary to chronic hypoxic lung disease. Has recently seen Dr. Robles of [facility] [place] [place] and Sleep Medicine. She hopes to get her surgery done this coming Tuesday which is 2 working days from now. She is not worried about the risk of surgery. She is using her BiPAP. She is uncertain whether she wants to go through a repeat sleep study. She is using furosemide at 40 mg once a day but is not really been sufficient. She has never been on a higher dose. She does get some chest tightness when she is having trouble breathing. Medications Current Outpatient Medications: ??? montelukast (Singulair) 10 mg Tablet, Daily, Disp: , Rfl: ??? OXYGEN-AIR DELIVERY SYSTEMS [facility], 2 L., Disp: , Rfl: ??? aspirin [...] 0 ??? fluticasone propionate (FLONASE) 50 mcg/actuation [place], Suspension, SHAKE LQ AND U 1 SPR [...] hours as needed., Disp: , Rfl: 0 Objective Physical Exam BP 139/54 Pulse 78 Ht 160 cm (5' 3) Wt (!) 190.5 kg (420 lb) SpO2 93% Comment: 3l BMI 74.40 kg/m?? , Body mass index is 74.4 kg/m??. She is a very pleasant woman in a motorized wheelchair. She is here alone. Her skin is notable for some venous dermatitis of her lower extremities. Her lungs show no wheezing or crackles. Her venous pressure is difficult to assess. Heart sounds are regular without murmurs rubs or gallops. Abdomen is obese soft and nontender. Her legs are very heavy but are edematous. I personally reviewed her twelve-lead ECG which shows normal sinus rhythm at 79 bpm with no pathologic Q waves or diagnostic ST-T wave abnormalities. PH Relevant Test Date Comments LFTs, TAHMINA, HIV CT of chest 2014 no PE. No ILD. PFTs 2014 No obstruction. Nl TLC but elevated residual volume. DLCO 71% 10/2020 No obstruction. . DLCO/VA 89% of predicted V/Q scan Left heart function 02/2019 LVEF 65% by echo at [facility] Evaluation for DAVID Uses CPAP Right heart cath Labs Lab Results Component Value Date NA 140 11/06/2020 K 4.1 11/06/2020 CL 105 11/06/2020 CO2 28 11/06/2020 BUN 17 11/06/2020 CREATININE 0.56 (L) 11/06/2020 GLUCOSE 95 11/06/2020 GLUCFASTING 100 (H) 09/10/2019 CALCIUM 8.6 11/06/2020 Lab Results Component Value Date PROBNP 115 01/16/2017 Assessment Regarding her preop cardiovascular risk, her EKG is benign. She has no history of coronary disease and I do not think she is having angina. She does not appear to have left-sided heart failure. Regarding her peripheral edema, some of this may be venous stasis related to her weight. Her right heart status and her pulmonary pressures are unknown since her last echocardiogram was in 2019. Will be helpful to reassess this. I think she would also benefit from increasing diuretics. Plan ??? Echocardiogram MARGY--- I believe this was offered at 2 pm today but was subsequently cancelled (due to surgery being postponed?) ??? If her echocardiogram shows stable pulmonary pressures and normal RV function, I think it is reasonable to proceed with surgery. ??? Increase furosemide to 80 mg daily ??? Start spironolactone 25 mg daily Follow up with Delma Reilly in 2 weeks. In the future, diuretics could likely be managed from her medical home under the direction of Dr. Murphy which would be much more convenient. Tex Edwards MD [facility] Addendum 20 January 2021 Echo done January 06 showed stable PASP of 52 with mild RV dilatation and normal RV function. I think itis reasonable to proceed with thyroid surgery. cc: ?? Alphonso Murphy MD [address] [place] [address] [address] [facility] 1 / [facility] [id number] documented in this encounter Plan of Treatment [...] google or use a book such as Silverado (available on [employer]) OR [employer] (if you're using a package, it will have calorie and protein info on the back) - The other thing to write down would be grams of protein - 1500 is a good starting point for a ca jeffrey goal documented as of this encounter Procedures Procedure Name Priority Date/Time Associated Diagnosis Comme nts EKG 12-LEAD Routine 01/01/2021 9:10 AM Chronic heart failure Results for this EDT with preserved procedure are in the ejection fraction results se ction. documented in this encounter Results ECHOCARDIOGRAM COMPLETE W CONTRAST (01/06/2021 1:10 PM EDT) P athologist Signature EF 60 HEARTLAB SYSTEM Specimen (Source) Anatomical Location Collection Method / Collectio n Time Received Time / Laterality Volume 01/06/2021 Narrative [facility] SYSTEM - 01/06/2021 2:11 PM EDT Procedure: ?Transthoracic Echocardiogram Patient: ?YOUNG CYN ?(Age): 1955(65y) Med Rec#: ? [id number] ?Sex: ?F ? Site Loc: ? [facility] ?Ht / Wt: ??160(cm)/190.5(k Pt. Loc: ?BSA: ?2.65 Study Date: ?? 01/06/2021 ?Pt. Type: Outpatient Tape: ? Referring: Tex Edwards ([id number]) Reading: Frandy Steiner ([id number]) Orthopaedic Physician Assistant: Aaliyah Conley Diagnosis: *Other secondary pulmonary hypertension [...] Vmax ?1.15 ? m/sec ? MV deceleration ehcb851.87 ? m sec ? MV A-wave Vmax [...] ? Mid-Inferior ?Normal ? Mid-Inferoseptal ?Normal ? [place]-Septal ? Normal ? [place]-Anterior ? Normal ? [place]-Lateral ?Normal ? [place]-Inferior ? Normal ? [place]-Tip ?Normal ? This report has been electronically sign ed by: _ Frandy Steiner MD ? 01/06/2021 14:10:00 Images [facility] and [facility] Cardiac Ultrasound Laboratory Procedure Note Frandy Steiner MD - 01/06/2021Forma tting of this note might be different from the original. Procedure: Transthoracic Echocardiogram Patient: JOHAN CASTANEDA(Age): 1955 (65y) Med Rec#: [id number] Sex: F Site Loc: [facility] [place] [place] Ht / Wt: 160(cm)/190.5(k Pt. Loc: BSA: 2.65 Study Date: 01/06/2021 Pt. Type: Outpati ent Tape: Referring: Tex Edwards ([id number]) Reading: Frandy Steiner ([id number]) Orthopaedic Physician Assistant: Aaliyah Conley Diagnosis: *Other secondary pulmonary hypertension [...] MV E-wave Vmax 1.15 m/sec MV deceleration [id number] msec MV A-wave Vmax 1.17 m/sec MV [...] Normal Mid-Posterolateral Normal Mid-Inferior Normal Mid-Inferoseptal Normal [place]-Septal Normal [place]-Anterior Normal [place]-Lateral Normal [place]-Inferior Normal [place]-Tip Normal This report has been electronically sign ed by: _ Frandy Steiner MD 01/06/2021 14:10: 00 Images reviewed and interpretation verif ied [facility] Cardiac Ultrasound Laboratory Tex Edwards MD ECHO ORDERABLES Performing Organization Address City/State/ZIP Code Phon e Number HEARTLAB SYSTEM EKG 12 Lead (01/01/2021 9:10 AM EDT) Component Value Ref Range Test Analysis Performed Pathologis t Method Time At Signature Ventricular rate 79 BPM MUSE SYSTEM Atrial Rate 79 BPM MUSE SYSTEM P-R Interval 176 ms MUSE SYSTEM QRS Duration 96 ms MUSE SYSTEM Q-T Interval 414 ms MUSE SYSTEM QTC Calculated 474 ms MUSE SYSTEM (Bezet) Calculated P [place] 70 degrees MUSE SYSTEM Calculated R [place] 68 degrees MUSE SYSTEM Calculated T [place] 35 degrees MUSE SYSTEM INTERPRETATION Normal sinus [...] Pulmonary hypertension Other chronic pulmonary heart diseases Chronic heart failure with preserved eje ction fraction Pulmonary hypertension Other chronic pulmonary heart diseases documented in this encounter Care Teams Technical Sales Representative Relationship Specialty Start Date End Date Alphonso Murphy MD PCP - General Family Medicine 02/19/[address] [place] [address] documented as of this encounter
--- OUTSIDE RECORDS SUMMARY | 2022-03-05 02:16 | XMS_ITS | Encounter Summary ---
:1955 [place] [address] Care Team Providers Name Role Phone Alphonso Murphy MD Primary Care Provider [phone] Reason for Visit Reason Comments Medication Refill Encounter Details Date Type Department Care Team Description 12/01/2019 Refill Weight and Wellness at [facility] Tisha gu MD [facility] [address] [facility] [place] [address] [place] [address] [phone] (Wo rk) Social History Tobacco Use Types [...] or use a book such as Blue Box (available on [employer]) OR [place] (if you're using a package, it will have calorie and protein info on the back) - The other thing to write down would be grams of protein - 1500 is a good starting point for a ca jeffrey goal documented as of this encounter Visit Diagnoses Not on filedocumented in this encounter Care Teams Orderly Relationship Specialty Start Date End Date Alphonso Murphy MD PCP - General Family Medicine 02/19/[address] [place] [address] [address] [place] [address] documented as of this encounter
--- OUTSIDE RECORDS SUMMARY | 2022-03-05 02:16 | XMS_ITS | Encounter Summary ---
:1955 Author Organization [facility] [place] [address] Care Team Providers Name Role Phone Alphonso Murphy MD Primary Care Provider [phone] Reason for Visit Consultation (Urgent) - Closed Specialty Diagnoses / Procedures Referred By Contact Refer red To Contact Sleep Center Diagnoses Class 3 obesity with alveolar hypoventilation, serious comorbidity, and body mass index (BMI) greater than or equal to 70 in adult Supplemental oxygen dependent Mike Robles MD [facility] Sleep Medicine [facility] D R [address] [place] [address] [place] [address] Referral ID Status Reason Start Date Expiration Date Visits V isits Requested Authorized [id number] Closed Consult, 11/06/2020 11/06/2021 1 1 Test & Treat Encounter Details Date Type Department Care Team Description 12/17/2020 Office Visit [facility] DAVID [facility] eated with BiPAP; [address], 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 CAREGIVER Dependence on continuous supplemental ox ygen [address] [place] [address] [place] [address] [phone] (Wo rk) Social History Tobacco Use Types [...] Sign Reading Time Taken Comments Blood Pressure 149/71 12/17/2020 9:54 AM EDT Pulse 81 12/17/2020 9:54 AM EDT Temperature - - Respiratory Rate - - Oxygen Saturation 94% 12/17/2020 9:54 AM EDT Inhaled Oxygen Concentration - - Weight 190.5 kg (420 lb) 12/17/2020 9:54 AM EDT Height 160 cm (5' 2.99) 12/17/2020 9:54 AM EDT Body Mass Index 74.42 12/17/2020 9:54 AM EDT documented in this encounter Progress Notes Deysi York, DEISY - 12/17/2020 10:00 AM EDT Sleep Medicine Consultation Note CC:Radha Masterson is a 65 y.o. female seen at the request of Mike Woody MD for advice regarding DAVID, possible OHS on BiPAP and supplemental oxgyen. HPI: Had a sleep study in 2012 at [facility]: AHI 24.9/hr, min SpO2 77%, at a BMI of 68. Had a titration study that same year and autoBiPAP was prescribed. In 2014 she was on autoBiPAP 25/16/5 and felt air hunger so her BiPAP was changed to 23/19 cm with 5 L/min O2. She then had a repeat titration study in 2018 and BiPAP 25/21 cm was recommended and supplemental oxygen was not needed the nightof this study. Sometime after this study O2 added at night, has been off and on O2 for years. Per [facility] last BiPAP pressure setting was 25/17 cm documented in 2019. TCO2 values never went above 50 mmHg during the BiPAP titration study in 2019. She presents today at the request of pulmonary. She needs to have a thyroidectomy. Has complaints ofworsening SOB with sensation of throat construction from her goiter. She is currently on BiPAP, maybe 25/17 cm and 5 L/min O2 at night with 2-3 L/min during the day. States when hospitalized in 2019 needed BiPAP at 30/20 cm. Per her report she has been on O2 for a while, seems she qualified for daytime use in the past. She has a Dreamstation BiPAP and wears a FFM. BIPAP download is not available today and [facility] does not have current data either. Last received PAP supplies in November 2020. HPI continues below: HX: DAVID on BIPAP, dependent on O2 07/03, PAH, morbid obesity, mild LV hypertrophy, HTN, insomnia, anxietyand depression, h/o PE, former heavy smoker Per pulmonary she most likely does not have COPD. PFTs October 2020: FINDINGS: FEV1 and FVC are reduced, FEV1/VC is normal. Diffusion capacity not adjusted for hemoglobin is normal. IMPRESSION: Spirometry suggests restriction, however lung volumes are required to distinguish the possibility of restriction or air trapping. No diffusion impairment. Possible restrictive physiology combined with a normal diffusion capacity may indicate chest wall and/or neuromuscular disorders. This pattern can also be seen in obesity noting BMI \R\80 kg/m\S\2. Patient unable to walk, but had low-normal oxyhemoglobin saturation at rest on 2LPM nasal cannula which increased during seated exercise. CBC unremarkable Lab Results Component Value Date NA 140 11/06/2020 K 4.1 11/06/2020 CL 105 11/06/2020 CO2 28 11/06/2020 BUN 17 11/06/2020 CREATININE 0.56 (L) 11/06/2020 GLUCOSE 95 11/06/2020 GLUCFASTING 100 (H) 09/10/2019 CALCIUM 8.6 11/06/2020 ESTGFR 99 11/06/2020 Recent venous ABGs; pH Danie 7.32 - 7.42 7.35 pCO2 Danie 41 - 51 mmHg 54High pO2 Danie 25 - 40 mmHg 29 HCO3 Danie mmol/L 29.1 BE Danie mmol/L 3.4 Hgb Blood Gas 11.7 - 15.5 gm/dL 14.8 Comment: Interpret with caution, 1 ml syringe may give rise to occasional discrepant Hgb results.11/06/20 15:37 O2HB Danie % 59.4 COHB Danie % 1.3 Comment: Nonsmokers: 0.5-1.5% COHB Smokers: Variable, but usually less than 10% Toxic: 20-30% COHB Lethal: Greater than 60% COHB METHB Danie <=1.5 % 0.3 Na Whole Blood 135 - 145 mmol/L 141 K Whole Blood 3.5 - 5.0 mmol/L 3.9 Comment: Please note: Patients with WBC >100,000 may have falsely elevated Potassium levels. Contact the Clinical Chemistry Laboratory if there are any questions. ICa Whole Blood 1.15 - 1.33 mmol/L 1.19 Comment: Note: ??Total bilirubin higher than 20 mg/dL may lead to falsely low ionized calcium. CL Whole Blood 98 - 107 mmol/L 103 Gluc Whole Bld 65 - 199 mg/dL 93 Comment: Diabetes: >=200 mg/dL plus symptoms Lactate WB 0.5 - 2.2 mmol/L 1.4 BGas Source Venous ECHO in January 2017 SUMMARY: 1. Technically limited Optison contrast (one 3 ml vial) was used to enhance endocardial definition. 2. Mild concentric left ventricular hypertrophy is observed. Global left ventricular systolic function appears hyperdynamic. Ejection fraction is estimated to be 75%. There are no left ventricular segmental wall motion abnormalities. 3. The right ventricle is probably normal in size. Right ventricular global systolic function is normal. 4. The left atrium is moderately dilated.46ml/m2 5. There is no hemodynamically significant valve disease. 6. See remainder of report for additional findings. The estimated pulmonary artery systolic pressure is 56 mmHg. ?? Sleep Pattern: Bed/Recliner/Wedge: hospital bed with HOB raised about 45 degree, with one pillow, sleep supine Bedtime: 11p Lights out: same as bedtime Latency: a couple hours-pattern times years, has no idea why she cannot fall asleep. Tried a sleep aid, not sure what, but it didn't help. Awakenings: 3 times Reason: to urinate Duration: quickly falls back to sleep most night Wake time: 7a Rise time: same as wake time Respiratory: Snoring: not sure if she is snoring on BIPAP Observed Apneas: no Nocturnal Gasping: yes, on BiPAP Nasal Obstruction: no Mouth Breathing: yes Dry Mouth: yes Daytime Symptoms: Patient-reported last 4 scores: Liberal: 8 [facility] 12/11/2020 Liberal Sleep Incomplete Insomnia Severity Index 18 (Moderately severe insomnia) Upon Awakening: wakes feeling more refreshed on BiPAP Naps: no Involuntary Dozing: yes, sitting quietly at home, sometimes outside the home- thinks she receives benefit from PAP Driving: not since 2008 Close calls related to sleepiness no h/o Accidents related to sleepiness no h/o Other Associates Sleep Symptoms: Parasomnias: Sleep Walking: no Dream Enactment: no Motor: RLS: no PLMS: no Medications: Current Outpatient Medications: ??? predniSONE (Deltasone) 50 mg Tablet, Take one tablet by mouth at 13 hours, 7 hours and 1 hour prior to scheduled exam (Patient not taking: Reported on 11/06/2020), Disp: 3 tablet, Rfl: 0 ??? aspirin 325 mg Tablet, Take 325 [...] 0 ??? fluticasone propionate (FLONASE) 50 mcg/actuation [place], Suspension, SHAKE LQ AND U 1 SPR [...] hours as needed., Disp: , Rfl: 0 Past Medical History: Active Ambulatory Problems Diagnosis Date Noted ??? Obesity due to excess calories with serious comorbidity 12/03/2010 ??? Pleural effusion on right 03/24/2014 ??? Musculoskeletal chest pain 10/08/2014 ??? Pulmonary hypertension 05/18/2019 ??? Chronic heart failure with preserved ejection fraction 05/21/2019 ??? DAVID treated with BiPAP 05/21/2019 ??? Dependence on continuous supplemental oxygen 08/13/2019 ??? Anxiety 08/13/2019 ??? Intertrigo 08/13/2019 ??? Grief at loss of child 08/13/2019 ??? Depression 08/13/2019 ??? Vitamin D deficiency 09/11/2019 ??? Multinodular goiter 09/02/2020 ??? Morbid obesity with BMI of 70 and over, adult 12/08/2020 Resolved Ambulatory Problems Diagnosis Date Noted ??? Morbid obesity ??? JODY (acute kidney injury) 01/16/2017 Past Medical History: Diagnosis Date ??? Antiplatelet or antithrombotic long-term use ??? Asthma ??? Hypertension ??? Mental health problem ??? Oxygen dependent ??? PE (pulmonary thromboembolism) ??? Pulmonary emboli ??? Transfusion history ??? Vertigo Social History: Living situation: lives alone, currently daughter is with her Employment: on disability from ambulation issues Alcohol: no Smokin-3 packs per day x 40 years; quit 2010 Caffeine: rarely has coffee Other drugs: no Family History: Family history of sleep disorders: brother has DAVID ROS: CON: weight change: has gained 10 lbs since 2019 titration study ENT: nasal obstruction: no PUL: FRY: yes CV: chest pain: yes Palpitations: no LE edema: yes GI: GERD: no : Nocturia: yes MSK: Pain: no NEURO: sleep related headaches: no ALL: no ENDO: + thyroid nodules/goiter, no DM PSY: Depression: yes, controlled on meds Anxiety: yes, controlled on meds PE: BP 149/71 Pulse 81 Ht 160 cm (5' 2.99) Wt (!) 190.5 kg (420 lb) SpO2 94% BMI 74.42 kg/m?? General: NAD, on 2L/min NC O2 in the office today Eyes: conjunctiva clear ENT: oropharynx MP: 3/4 Mandibular structure and position: + retrognathia, upper dentures, no lower teeth NECK: Submental fat present: yes Neck Size: 21.5 inches LUNGS: respirations even and labored, expiratory wheezes b/l CV: RRR, no m/g/r, + LE edema SKIN: warm and dry NEURO: she is in a motorized w/c, no tremor PSYCH: Alert and appropriate: yes Oriented to person, place and time: yes Affect: full range Mood: good Judgement and insight: intact Assessment: Radha Masterson is a 65 y.o. female with a history of DAVID on BiPAP (maybe) 25/17 cm and supplemental oxygen 5 L/min. A BIPAP download is not available today. She states usage is nightly and she continues to receive benefit in terms of improved sleep quality and increased daytime energy and alertness. Shehas long standing sleep onset insomnia. Per her 2019 titration study she did not have elevated TCO2 levels and did not require supplemental oxygen. She states the O2 was added when she qualified for daytime use (I do not have those records) at an unknown time. Reports higher O2 needs and worsening SOB? due to goiter. For thyroidectomy soon. Pulmonary is requesting a repeat titration study to assess B iPAP needs and measure TCO2. Patient confirms that study results can be released to their my account. Questions regarding diagnosis and management answered at this time. Recommendations: 1. BiPAP titration study start at 20/14 cm begin on 1 L/min O2 (per pt request) and add TCO2 2. F/U 6 weeks after titration study. Plan discussed with the patient and they are in agreement. DEYSI YORK APRN documented in this encounter Miscellaneous Notes Addendum Note - Deysi York APRN - 12/17/2020 10:00 AM EDT Addended by: DEYSI YORK on: 12/17/2020 01:42 PM Modules accepted: Orders documented in this [...] google or use a book such as Hyperic (available on [employer]) OR [employer] (if you're using a package, it will have calorie and protein info on the back) - The other thing to write down would be grams of protein - 1500 is a good starting point for a ca jeffrey goal documented as of this encounter Visit Diagnoses Diagnosis DAVID treated with BiPAP Dependence on continuous supplemental ox ygen documented in this encounter Care Teams Photoengraving Printer Relationship Specialty Start Date End Date Alphonso Murphy MD PCP - General Family Medicine 02/19/[address] [place] [address] documented as of this encounter
--- OUTSIDE RECORDS SUMMARY | 2022-03-05 02:17 | XMS_ITS | Encounter Summary ---
:1955 [place] [address] Care Team Providers Name Role Phone Alphonso Murphy MD Primary Care Provider [phone] Encounter Details Date Type Department Care Team Description 12/13/2018 Ancillary Procedure Radiology Library at Josué Lozano MARITZA GARCIA [facility] [place] [address] PULMONARY MEDICINE [phone] [place], [place] [address] (Wo rk) Social History Tobacco [...] Not on filedocumented as of this encounter Procedures Procedure Name Priority Date/Time Associated Diagnosis Comme nts FILM LIBRARY Routine 12/13/2018 12:00 AM Results for this STORAGE ONLY DX EDT procedure ar e in CHEST the results section. documented in this encounter Results Film Library- Storage Only DX Chest (12/13/2018 12:00 AM EDT) Specimen (Source) Anatomical Location Collection Method / Collectio n Time Received Time / Laterality Volume Narrative RAD - 03/22/2019 3:57 AM EDT This exam is auto-finalizing. It's purpo se is for storage only. Padmini Lozano MD IMG FILM LIBRARY ORDERABLES Performing Organization Address City/State/ZIP Code Phon e Number [place], [place] documented in this encounter Visit Diagnoses Not on filedocumented in this encounter Care Teams Harp Maker Relationship Specialty Start Date End Date Alphonso Murphy MD PCP - General Family Medicine 02/19/[address] [place] [address] documented as of this encounter
--- OUTSIDE RECORDS SUMMARY | 2022-03-05 02:17 | XMS_ITS | Encounter Summary ---
:1955 Author Organization [facility] [place] [address] Care Team Providers Name Role Phone Alphonso Murphy MD Primary Care Provider [phone] Encounter Details Date Type Department Care Team Description 09/21/2019 Notes Only Auditorium E at [facility] [place] [address] Social History Tobacco Use Types Packs/Day Years Used Date Former Smoker Cigarettes 3 40 Quit: 10/08/19 11 Smokeless Tobacco: Never Used Alcohol Use Standard Drinks/Week Comments No 0 (1 standard drink = 0.6 oz pure alcoho l) Sex Assigned at Date Recorded Not on file documented as of this encounter Progress Notes Nelly Sellers - 09/21/2019 2:00 PM EST Patient attended Bariatric Surgery Introductory Session - Patient took USB & folder. documented in this encounter Plan of Treatment [...] or use a book such as Calorie [employer] (available on [employer]) OR KeyMe (if you're using a package, it will have calorie and protein info on the back) - The other thing to write down would be grams of protein - 1500 is a good starting point for a ca jeffrey goal documented as of this encounter Visit Diagnoses Not on filedocumented in this encounter Care Teams Viscose Department Worker Relationship Specialty Start Date End Date Alphonso Murphy MD PCP - General Family Medicine 02/19/[address] [place] [address] [address] [place] [address] documented as of this encounter
--- OUTSIDE RECORDS SUMMARY | 2022-03-05 02:17 | XMS_ITS | Encounter Summary ---
:1955 Author Organization [facility] [place] [address] Care Team Providers Name Role Phone Alphonso Murphy MD Primary Care Provider [phone] Encounter Details Date Type Department Care Team Description 09/11/2019 Orders Only Weight and Wellness at Tisha Young, Vitamin D deficiency [facility] [address] [place] [address] [facility] [place], [place] [address] (Wo rk) Social History Tobacco [...] book such as Calorie Adalberto (available on [employer]) OR [employer] (if you're using a package, it will have calorie and protein info on the back) - The other thing to write down would be grams of protein - 1500 is a good starting point for a ca jeffrey goal documented as of this encounter Visit Diagnoses Diagnosis Vitamin D deficiency Unspecified vitamin D deficiency documented in this encounter Care Teams Cadd Manager Relationship Specialty Start Date End Date Alphonso Murphy MD PCP - General Family Medicine 02/19/[address] [place] [address] [address] [place] [address] documented as of this encounter
--- OUTSIDE RECORDS SUMMARY | 2022-03-05 02:17 | XMS_ITS | Encounter Summary ---
:1955 Author Organization [facility] [place] [address] Care Team Providers Name Role Phone Alphonso Murphy MD Primary Care Provider [phone] Encounter Details Date Type Department Care Team Description 05/09/2019 Ancillary Procedure Radiology Library at Josué Murphy [facility] [address] [id number] [phone] Social History Tobacco Use Types Packs/Day Years [...] Associated Diagnosis Comme nts FILM LIBRARY Routine 05/09/2019 12:00 AM Results for this STORAGE ONLY DX EDT procedure ar e in WRIST the results section. documented in this encounter Results Film Library- Storage Only DX Wrist (05/09/2019 12:00 AM EDT) Specimen (Source) Anatomical Location Collection Method / Collectio n Time Received Time / Laterality Volume Narrative RAD - 07/02/2019 1:22 PM EST This exam is auto-finalizing. It's purpo se is for storage only. Alphonso Murphy MD IM FILM LIBRARY ORDERABLES Performing Organization Address City/State/ZIP Code Phon e Number [place], [place] documented in this encounter Visit Diagnoses Not on filedocumented in this encounter Care Teams Reinsurance Clerk Relationship Specialty Start Date End Date Alphonso Murphy MD PCP - General Family Medicine 02/19/[address] [place] [address] documented as of this encounter
--- OUTSIDE RECORDS SUMMARY | 2022-03-05 02:17 | XMS_ITS | Encounter Summary ---
:1955 Author Organization [facility] Address [address] [place] [address] Care Team Providers Name Role Phone Alphonso Murphy MD Primary Care Provider [phone] Encounter Details Date Type Department Care Team Description 09/21/2019 [facility] [address], RD due to excess calories [address] [place] [address] comorbidity and body [phone] mass index (BMI ) of 60.0 to 69.9 in adult Social History Tobacco Use Types Packs/Day Years [...] - Oxygen Saturation - - Inhaled Oxygen - - Concentration Weight 183.2 kg (403 lb 09/21/2019 12:30 pt did not lorie e Lasix 12.8 oz) PM EST before appointme nt Height 162.6 cm (5' 4.02) 09/21/2019 12:30 PM EST Body Mass Index 69.28 09/21/2019 12:30 PM EST documented in this encounter Patient Instructions Patient InstructionsKiersten Billingsley RD - 09/21/2019 11:00 AM EST Nutrition Goals: 1. Move breakfast to 10 am - no food before 10 am - sample breakfast idea is 2 eggs, 1 slice whole wheat toast and 1 small fruit 2. Sample lunch plate might be: 1-2 ounces of cheese, 5 whole wheat rtiz crackers and sliced fruit like apple or pear (or 12-15 small grapes) 3. At dinner, make half your plate NON-starchy vegetables (use the list provided) aim for limiting starchy vegetables to no more than 1/2 cup (or 3 counce potato) 4. Try to avoid eating past 6 pm - if you need to try 1 ounce of cheese or 1/2 ounce of cheese with deli meat - avoid fruit at this late hour and try a cup of tea and brushing teeth to help avoid eating past 6pm 5. If choosing pasta keep to 1/2 cup cooked per meal and try Barilla Protein Plus (yello box) 6. Limit liversurst and pastrami to 1-2 times per week and purchase smaller quantity from deli documented in this encounter Progress Notes Kiersten Billingsley RD - 09/21/2019 11:00 AM EST Nutrition Intervention for Weight Management RD visit with Radha Masterson Assessment/Nutrition Diagnosis: Pt at increased nutritional risk related to excessive calorie intakeand sub optimal physical activity resulting in overweight/obesity as evidenced by BMI and diet recall : 1955 Food Trackers: yes; using lose it guerita Activity: limited d/t oxygen need and wheelchair; 1 hour twice weekly for Pulmonary rehab Weight Today: ~ 6# weight loss x 1 month Vitals 09/21/2019 Height (Congolese) 64.016 Height (Metric) 162.6 cm Weight (Congolese) 403 lbs 13 oz Weight (Metric) 183.162 kg BMI (Calculated) 69.27 kg/m2 Typical Dietary Intake: B: 8 ounces of V8 juice and 2 poached eggs and 1 toast whole wheat S: 1 orange L: crab meat salad 1 teaspoon ranch S: orange D: 3 ounces of pork (weight and measured) and 3 ounce baked potato and 2/3 parsnips S: 8 pm might be fruit fresh or frozen sometimes a banana Typical Beverages: water, occasional flavored water Previous Wellness Goals: Goals ??? beverages 2% milk is fine Continue not bringing the mountain dew into the house- this is not going to work well after surgery Don't bring a drink to meals with you You might set an alarm for 11:30am and 4:30pm to remind yourself not to drink for 30 minutes before the meal Set a timer for 30 minutes after you finish your meal to remind yourself nnot to drink for 30 minutes after the meal Work on sipping water throughout the day Write down how much water you drink throughout the day (figure out how much water is in that bottle) Aim for at least 48 ounces in the day ??? continue writing down your foods - use the notebook - can you add some calorie information: Either google or use a book such as [employer] (available on [employer]) OR [employer] (if you're using a package, it will have calorie and protein info on the back) - The other thing to write down would be grams of protein - 1500 is a good starting point for a calorie goal ??? dessert - 1/2 cup portion once a week is reasonable - choose what you like, just have at a reasonable frequency and portion ??? Focus on protein - eat the protein first - always a protein on your plate - fish is a healthy choice. Choose liverwurst less often - once a week. ? ? mac&cheese Can have once or twice a week in 1/2 cup portions Put protein (3 or 4 ounces) and veggies (1 or 2 cups) on the plate as well ??? meal timing Continue working on 3 meals in a day Interview/Assessment: All above goals reviewed and discussed. Pt making excellent progress and is ontrack for bariatric surgery at this time. Recent setback with painful nerves in wrist making hand numb resulting in needs for wheelchair vs. Walker. Conitnues to avoid soda and does not bring sweet treats into the home. Sipping on water al day long. Barriers to Change: None noted today Nutrition Goals: 1. Move breakfast to 10 am - no food before 10 am - sample breakfast idea is 2 eggs, 1 slice whole wheat toast and 1 small fruit 2. Sample lunch plate might be: 1-2 ounces of cheese, 5 whole wheat rtiz crackers and sliced fruit like apple or pear (or 12-15 small grapes) 3. At dinner, make half your plate NON-starchy vegetables (use the list provided) aim for limiting starchy vegetables to no more than 1/2 cup (or 3 counce potato) 4. Try to avoid eating past 6 pm - if you need to try 1 ounce of cheese or 1/2 ounce of cheese with deli meat - avoid fruit at this late hour and try a cup of tea and brushing teeth to help avoid eating past 6pm 5. If choosing pasta keep to 1/2 cup cooked per meal and try Barilla Protein Plus (yello box) 6. Limit liversurst and pastrami to 1-2 times per week and purchase smaller quantity from deli Monitor/Evaluate: Will follow up for additional consecutive (ie. August, September, October...) monthly visits for a total of 3 RD visits OR as otherwise specified by patient's insurer. Patient will contact bariatric surgery team with any questions about insurance requirements ( ) Will discuss progress towards goals listed above Aim for 5-10% weight loss from ABW x 3-6 months from initial visit Thank you Kiersten Billingsley MS RD LD 30 minutes were spent today in face to face contact documented in this encounter Plan of Treatment [...] google or use a book such as [employer] (available on [employer]) OR [employer] (if you're using a package, it will have calorie and protein info on the back) - The other thing to write down would be grams of protein - 1500 is a good starting point for a ca jeffrey goal documented as of this encounter Visit Diagnoses Diagnosis Class 3 severe obesity due to excess michel ories with serious comorbidity and body mass index (BMI) of 60.0 to 69.9 in adult documented in this encounter Care Teams Meat Supervisor Relationship Specialty Start Date End Date Alphnoso Murphy MD PCP - General Family Medicine 02/19/[address] [place] [address] documented as of this encounter
--- OUTSIDE RECORDS SUMMARY | 2022-03-05 02:17 | XMS_ITS | Encounter Summary ---
:1955 Author Organization [facility] [place] [address] Care Team Providers Name Role Phone Alphonso Murphy MD Primary Care Provider [phone] Encounter Details Date Type Department Care Team Description 09/06/2019 Telephone Weight and Wellness at [facility] Sorto Ebony Omar [address] [place] [address] Social History Tobacco Use Types Packs/Day Years [...] google or use a book such as Pluto[employer] (available on [employer]) OR [employer] (if you're using a package, it will have calorie and protein info on the back) - The other thing to write down would be grams of protein - 1500 is a good starting point for a ca jeffrey goal documented as of this encounter Visit Diagnoses Not on filedocumented in this encounter Care Teams Seamless Tube Mill Operator Relationship Specialty Start Date End Date Alphonso Murphy MD PCP - General Family Medicine 02/19/[address] [place] [address] documented as of this encounter
--- OUTSIDE RECORDS SUMMARY | 2022-03-05 02:17 | XMS_ITS | Encounter Summary ---
:1955 Author Organization [place] [address] Care Team Providers Name Role Phone Alphonso Murphy MD Primary Care Provider [phone] Reason for Visit Consultation (Routine) - Closed Specialty Diagnoses / Procedures Referred By Contact Refer red To Contact Neurology Diagnoses Neuritis of right ulnar nerve Pain in right wrist Osmin Castañeda [facility] Neurology yg Sims MD [facility] [place] [address] [place] [address] Referral ID Status Reason Start Date Expiration Date Visits V isits Requested Authorized [id number] Closed Consult & 08/06/2019 08/05/2020 1 1 Test Encounter Details Date Type Department Care Team Description 10/22/2019 Procedure visit Neurology [place] [facility]ik Agrawal MD Carpal tunnel syndrome on right; [facility] gui ropathy at elbow, right [facility] [address] [place], [place] [phone] Social History Tobacco Use Types Packs/Day Years Used Date Former Smoker Cigarettes 3 40 Quit: 10/08/19 11 Smokeless Tobacco: Never Used Alcohol Use Standard Drinks/Week Comments No 0 (1 standard drink = 0.6 oz pure alcoho l) Sex Assigned at Date Recorded Not on file documented as of this encounter Progress Notes Derik Agrawal MD - 10/22/2019 11:15 AM EDT Images from the original note were not included[place] [address] EMG/NCS REPORT 10/22/2019 Patient name: Radha Masterson Date of : 1955 Referring provider: Osmin Castañeda Jr., MD [facility] [place] [address] History and Examination: Referred for EMG studies for R hand pain. She has symptoms in the median distribution of R hand andpain in the R elbow medial aspect. No significant weakness or wasting. On a wheelchair. High BMI. There were no vitals taken for this visit. Nerve Conduction Studies For sensory nerve conduction studies, the amplitude is measured [id number], the latency reported is the distal peak latency, and the conduction velocity, if measured, is determined from onset latencies and is over the extremity. For motor nerve conduction studies, the amplitude is measured [id number], the latency reportedis the distal onset latency,the conduction velocity is calculated over the extremity, and the F wavelatency is the minimum latency. Unless otherwise noted, the upper limb temperature was maintained above 31 degrees Celsius and lowerlimb above 30 degrees. Technologist: GIORGIO Sensory Nerve Conduction Nerve / Sites Rec. Site Peak Lat MOVEMENT THERAPIST Amp Ref. Distance Onset Alexis Ref. ms ??V ??V mm m/s m/s R Median - Ortho-Anti (Mid palm, Dig II) Mid Palm Wrist 1.9 93.6 ?45.0 65 49.5 ?45.0 Dig II Wrist 3.1 9.7 ?6.0 125 53.6 ?45.0 R Ulnar - Ortho-Anti (Dig V) Dig V Wrist NR NR ?5.0 ?45.0 Wrist Dig V 2.8 31.1 ?13.0 90 44.1 ?45.0 Motor Nerve Conduction Nerve / Sites Muscle Latency Ref. Amplitude Ref. Distance Velocity Ref. ms ms mV mV mm m/s m/s R Median - APB Wrist APB 4.4 ?4.2 7.5 ?4.5 80 R Ulnar - ADM Wrist ADM 3.0 ?3.9 10.4 ?4.5 80 B.Elbow ADM 6.4 1.5 ?4.5 200 59.6 ?50.0 A.Elbow ADM 8.1 1.3 ?4.5 100 58.5 ?50.0 F Wave Nerve F Lat Ref. M Lat Min M Lat ms ms ms ms R Median - APB ?32.0 4.4 4.4 R Ulnar - ADM 27.5 ?32.0 3.1 3.1 Electromyography The study was performed with a concentric needle electrode. Fibrillation and fasciculation activity is graded from none (0) to continuous (4+). The configuration and recruitment pattern of motor unit action potentials under voluntary control are described in the accompanying report. EMG Summary Table Spontaneous Activity Volitional MUAPs Muscle Fibs PSW Fasc Poly Amp Dur Recruit Activation R. FDI 0 0 0 NL NL NL Reduced Reduced R. ADM 0 0 0 NL NL NL Reduced Reduced R. APB 0 0 0 NL NL NL Reduced Reduced R. Flexor carpi ulnaris 0 0 0 NL NL NL Full MAX Findings ??? Prolonged distal median motor latency on R side with normal median sensory. ??? Low amplitude and slow ulnar sensory with drop in motor amplitude below and above elbow without slowing ??? Needle examination with a concentric needle electrode of R FDI showed mild chronic neuropathic changes. R APB activation was reduced. None of the muscles showed active denervation changes. Diagnostic Interpretation The study was ABNORMAL. 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 Notes Study was limited by body habitus. Proximal ulnar stimulation was difficult due to pain and fat tissue. A low amplitude ulnar sensory and mild chronic neuropathic changes of R FDI suggests possibility of an ulnar neuropathy, likely around elbow. Derik Agrawal MD Department of Neurology [facility] documented in this encounter Plan of Treatment Scheduled Referrals Name Type Priority Associated Diagnoses Order S chedule Referral to Outpatient Referral Routine Neuritis of right Ord ered: Neurology ulnar nerve 08/06/2019 Pain in right wrist documented as of this encounter Goals Goal [...] or use a book such as Calorie ChannelBreeze (available on [employer]) OR [employer] (if you're using a package, it will have calorie and protein info on the back) - The other thing to write down would be grams of protein - 1500 is a good starting point for a ca jeffrey goal documented as of this encounter Visit Diagnoses Diagnosis Carpal tunnel syndrome on right Carpal tunnel syndrome Ulnar neuropathy at elbow, right documented in this encounter Care Teams Salmon Gillnet Vessel Operator Relationship Specialty Start Date End Date Alphonso Murphy MD PCP - General Family Medicine 02/19/[address] [place] [address] documented as of this encounter
--- OUTSIDE RECORDS SUMMARY | 2022-03-05 02:17 | XMS_ITS | Encounter Summary ---
:1955 Author Organization [facility] [place] [address] Care Team Providers Name Role Phone Alphonso Murphy MD Primary Care Provider [phone] Reason for Visit Reason Comments Follow-up Weight Management Encounter Details Date Type Department Care Team Description 09/10/2019 Office Visit Weight and Wellness Tisha Young L, Cl ass 3 severe obesity at [facility] due to excess calories [address] [facility] with serious [place], [place] DR comorbidity and body [id number] [facility] mass index (BMI) of [phone] PRIMARY CARE 60.0 to 69.9 in adult [place], [place] [address] Social History Tobacco Use Types [...] Sign Reading Time Taken Comments Blood Pressure 136/75 09/10/2019 1:40 PM EST Pulse 83 09/10/2019 1:40 PM EST Temperature - - Respiratory Rate 16 09/10/2019 1:40 PM EST Oxygen Saturation 93% 09/10/2019 1:40 PM EST Inhaled Oxygen Concentration - - Weight 179.5 kg (395 lb 12.8 oz) 09/10/2019 1:40 PM EST Height 162.6 cm (5' 4.02) 09/10/2019 1:40 PM EST Body Mass Index 67.9 09/10/2019 1:40 PM EST documented in this encounter Progress Notes Tihsa Young MD - 09/10/2019 1:30 PM EST . [facility] Healthy Living Clinic Visit Patient Name: Radha Masterson Date of : 1955 Age: 64 y.o. Alphonso Murphy MD Thank you for referring Radha Masterson to the [facility] Living Clinic for consultation regardingobesity. PREVIOUS LABS: No results found for: CHLPL No results found for: HDL No results found for: LDLCHOL Lab Results Component Value Date TRIG 113 01/16/2017 No results found for: CHOLHDL No results found for: HA1C Lab Results Component Value Date GLUCFASTING 126 (ExtH) 06/01/2019 Lab Results Component Value Date AST 13 01/16/2017 ALT 25 01/16/2017 CHIEF COMPLAINT: Follow-up for Obesity Pathway: Obesity med. This is pathway visit. Interested in bariatric surgery. INTERVAL HISTORY / PROGRESS TOWARD GOALS: [x] I reviewed past / interim records including notes and labs. This is the first folllow up for this 64 y.o. patient who I saw in Weight and Wellness clinic for the first time on 08/06/2019. Medical problems include: Pulmonary HTN, DAVID, chronic HF with preserved EF, anxiety, depression, pre- diabetes. Metformin was recently started. She wears oxygen 24 hours per day. BMI was 73.8, weight 430 lbs. Saw electric refrigerator preparer Dimple on 08/20 who wrote: Radha is down 21 pounds from her initial visit 2 weeks ago. Recent changes in this time include cutting out soda (previously ~1 liter Mountain Dew in a week), aiming to eat 3 meals a day, choosing smaller portions (especially carbs) and logging foods in a notebook. Weight was 409 lbs. She gave her 1500 michel goal. Discussed bariatric eating. Today patient reports: feeling ok, at her Baseline. Pleased that she has lost a considerable amount of weight. Changes she has made: Cut out Mt. Dew entirely (really misses this). Has had no soda since first WWCvisit. Saw PCP who increased metformin to Two twice per day. I fixed this on our med list. Occasionallyfeels stomach upset sometimes in the afternoon. Not every day. Does not think it correlates with starting metformin or increasing metformin. Sometimes really thirsty. PCP said sugar was OK. Has at least two 28 oz bottles of water daily. Did fasting labs for me today. Results not back yet. Is now eating 3 meals (did not used to eat breakfast). Protein with breakfast like egg or leftover meat or yogurt. Does not like plain belarusian yogurt even with adding fruit. Tracking: Started tracking on her phone this weekend. 24 hour diet recall: yesterday (Tuesday). Breakfast : 2 egg omelet with cheese at home. 260 michel. 10:30 80 michel peach yogurt. Lunch: Chicken breast chunks in water, 2 teasp hussein. Supper: 1/cup scallop potato, 3 oz ham , 3/4 cup broccoli : 250 michel Snack in evening: banana. after dinner might have fruit. Eats dinner at 5. Might eat fruit at 7 or 8 because feels hungry. Making sure to eat vegetables with supper very day which is new. Activity: Has been using resistance bands for arm and leg exercise. Does Pulmonary therapy twice per week. Uses a special bike total of 30 min. And does arm bike 15 min. This will finish this week but will be able to do maintenance program twice per week. Leaving wheelchair in kitchen and walking to bedroom twice per day. Now less SOB with this. Has a commode in bedroom. Cannot get into her bathroom with the wheelchair. Landlord is supposed to be fixingthe bathroom. She cannot get into the shower. Doing sponge baths. Every few weeks sister helps her into the tub. Is planning to pursue Bariatric surgery. Has not gone to info session yet but plans to do this.. I gave her info again. After dinner might have fruit. Eats dinner at 5. Might eat fruit at 7 or 8. Has give up potato chips. . Why are you doing so much better with sticking to plan? My weight. Every pound made my breathing worse. [facility] Initial Responses 08/06/2019 PROMIS 6B Scores 35.1 PROMIS 10 Physical Scores 37.4 PROMIS 10 Mental Scores 36.3 Food Insecurity Score Incomplete Schooling Some college or technical school Importance of making a change 10 - Very Important Confidence to make change 10 - Very Confident Most weighed 440 Age most weighed 440 Times lost 10 lbs or more 6 to 10 Most weight lost in one attempt 20 Lost weight how? Switched to food with less calories Wearing tracking devices helped improve health No Woman with baby weighing > 9lbs at No Sister of brother with diabetes No Have parent with diabetes Yes Younger than 65 yrs and little or no exercise in a day Yes REVIEW OF SYSTEMS: see above HPI for additional pertinent +/- findings ROS sheet reviewed. Gives herself an A on everything except a c on consistent bedtimes and stopping eating after dinner. No vision changes No numbness, tingling CV: no chest discomfort RESP: No shortness of breath at rest, cough, or wheezing. GI: as above Musculoskeletal: No new complaints. VITAL SIGNS: BP 136/75 Pulse 83 Resp 16 Ht 162.6 cm (5' 4.02) Wt (!) 179.5 kg (395 lb 12.8 oz) SpO2 93% BMI 67.90 kg/m?? Last 5 weight values: Wt Readings from Last 5 Encounters: 08/20/19 (!) 185.5 kg (409 lb) 08/06/19 (!) 195 kg (430 lb) 08/06/19 (!) 195 kg (430 lb) 05/21/19 (!) 191.9 kg (423 lb) 01/21/17 (!) 186.2 kg (410 lb 8 oz) PHYSICAL EXAM: Gen: Alert and appropriate, NAD. + central adiposity Neuro: Alert and oriented Psych: NL affect today SUMMARY OF VISIT AND RECOMMENDATIONS: Radha Masterson was seen in follow up today and an updated medical, diet and activity review was completed. Additional goals were set for changes in health habits (see below) as was a plan for evaluationand treatment of obesity related co-morbidities. Medical issues and plan: Class 3 extremely severe Obesity: ?? Medical Management: The patient wants to pursue bariatric surgery. Will change her to that pathway after she attends an info session. As above has made major diet changes and has increased activity and has lost 35 lbs since first visit with me on 08.06 which is 8.1% of her initial weight. DAVID: ?? Cont CPAP as prescribed Plan: keep up lifestyle change and higher dose of metformin. RTC me same day as October electric refrigerator preparer appt. Contact me with concerns. I spent a total of 30 minutes with the patient 20 minutes of which were spent in [id number] discussion/counseling re obesity, nutrition and activity as well as obesity related co-morbidities documented in this encounter Plan of Treatment [...] google or use a book such as SpearFysh (available on [employer]) OR [employer] (if you're using a package, it [...] adult documented in this encounter Care Teams Auto Radio Mechanic Relationship Specialty Start Date End Date Alphonso Murphy MD PCP - General Family Medicine 02/19/[address] [place] [address] documented as of this encounter
--- OUTSIDE RECORDS SUMMARY | 2022-03-05 02:17 | XMS_ITS | Encounter Summary ---
:1955 [place] [address] Care Team Providers Name Role Phone Alphonso Murphy MD Primary Care Provider [phone] Encounter Details Date Type Department Care Team Description 11/29/2018 Ancillary Procedure Radiology Library at Josu[facility] Lozano [facility] [place] [address] PULMONARY MEDICINE [phone] [place], [place] [address] (Wo rk) Social History Tobacco [...] Associated Diagnosis Comme nts FILM LIBRARY Routine 11/29/2018 12:05 AM Results for this STORAGE ONLY CT EDT procedure ar e in CHEST the results section. documented in this encounter Results Film Library- Storage Only CT Chest (11/29/2018 12:05 AM EDT) Specimen (Source) Anatomical Location Collection Method / Collectio n Time Received Time / Laterality Volume Narrative RAD - 03/22/2019 3:57 AM EDT This exam is auto-finalizing. It's purpo se is for storage only. Padmini Lozano MD IMG FILM LIBRARY ORDERABLES Performing Organization Address City/State/ZIP Code Phon e Number [place], [place] documented in this encounter Visit Diagnoses Not on filedocumented in this encounter Care Teams Sealer Sander Relationship Specialty Start Date End Date Alphonso Murphy MD PCP - General Family Medicine 02/19/[address] [place] [address] documented as of this encounter
--- OUTSIDE RECORDS SUMMARY | 2022-03-05 02:17 | XMS_ITS | Encounter Summary ---
:1955 Author Organization [facility] Address [address] [place] [address] Care Team Providers Name Role Phone Alphonso Murphy MD Primary Care Provider [phone] Encounter Details Date Type Department Care Team Description 11/07/2019 Visit Weight and Wellness Tisha Young Class 3 severe (TeleHealth) at [facility] MD [facility] to [facility] [address] [facility] with serious [place], [place] [address] comorbidity and body [id number] [facility] mass index (BMI) of [phone] PRIMARY CARE 60.0 to 69.9 in adult [place], [place] [address] Social History Tobacco Use Types [...] - - Weight 176.9 kg (390 lb) 11/07/2019 11:00 AM EDT pt rep orted. Height - - Body Mass Index 66.91 09/21/2019 12:30 PM EST documented in this encounter Progress Notes Tisha Young MD - 11/07/2019 11:00 AM EDT [facility] Healthy Living Clinic Visit PHONE VISIT DUE TO COVID-19 SITUATION Patient Name: Radha Masterson Date of : 1955 Age: 64 y.o. Alphonso Murphy MD Thank you for referring Radha Masterson to the [facility] Healthy Living Clinic for consultation regardingobesity. PREVIOUS LABS: No results found for: CHLPL No results found for: HDL No results found for: LDLCHOL Lab Results Component Value Date TRIG 113 01/16/2017 No results found for: CHOLHDL Lab Results Component Value Date HA1C 5.6 09/10/2019 Lab Results Component Value Date GLUCFASTING 100 (H) 09/10/2019 Lab Results Component Value Date AST 32 (H) 09/10/2019 ALT 38 (H) 09/10/2019 CHIEF COMPLAINT: Follow-up for Obesity Pathway: Bariatric surgery. INTERVAL HISTORY / PROGRESS TOWARD GOALS: [x] I reviewed past / interim records including notes and labs. This is a [address] [facility] visit folllow up for this 64 y.o. patient who I saw in Weight and Wellness clinic for the first time on 08/06/2019. Medical problems include: Pulmonary HTN, DAVID, chronic HF with preserved EF, anxiety, depression, ??pre- diabetes. ??She wears oxygen 24 hours per day. BMI was 73.8, weight 430 lbs at first visit. Metformin had been recently started. Saw supervisor coke handling Dimple on 08/20 who wrote: Radha is down 21??pounds from her initial visit 2 weeks ago. Recent changes in this time include cutting out soda (previously ~1 liter Mountain Dew in a week), aiming to eat 3 meals a day, choosing smaller portions (especially carbs) and logging foods in a notebook. Weight was 409 lbs. She gave her 1500 michel goal. Discussed bariatric eating. ?? Visit with me on 09/10/2019: weight 395 lbs.feeling ok, at her Baseline. Pleased that she had lost a considerable amount of weight. Changes: Cut out [place] entirely (really misses this). Has had no soda since first [facility] visit. Saw PCP who increased metformin to Two twice per day. Today she reports: Has a cold. Weight down to 390 lbs at home Eating protein and veg. Very little starch. Tracking: yes doing on the phone. Getting 1100 to 1500 michel per day. 24 hr diet recall: Breakfast: 2 poached eggs. LuncH: tossed salad, 2 teasp ranch dressing Supper:1/2 cup brown rice. Spinach, 4 oz chicken. Evening: Small orange. Lots of water. Not drinking any soda. Before sick with cold , activity: I move around, do as much as I can. Wrist hurts . Limits use of walker. Does leg exercises. Some upper body exercises. Injured wrist last March. 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 Mood: OK. Sister is getting groceries for her. Is working on the bariatric paperwork. I reviewed supervisor coke handling note from 09/21 and goals and reviewed goals with patient today. She is meeting all of them. Current Outpatient Medications on File Prior to Visit Medication Sig Dispense Refill ??? ergocalciferol (vitamin D) 50,000 unit Capsule Take 1 capsule by mouth twice a week for 24 doses. 24 capsule 0 ??? gabapentin (Neurontin) 100 mg Capsule TK 1 C PO BID ??? Mag 64 64 mg Tablet, Delayed Release (E.C.) TAKE 1 TABLET BY MOUTH ONCE DAILY ??? Incruse Ellipta 62.5 mcg/actuation Disk with Device INL 1 PUFF PO QD ??? metFORMIN (Glucophage) 500 mg Tablet Take 2 tablets by mouth 2 times daily (with meals). 60 tablet ??? citalopram (CELEXA) 20 mg Tablet Take 20 mg by mouth daily. ??? ALBUTEROL INHL Inhale into the lungs. ??? buPROPion (WELLBUTRIN) 100 mg Tablet Take by mouth. ??? busPIRone (BUSPAR) 5 mg Tablet ??? potassium chloride (MICRO-K) 10 mEq Capsule, Sustained Release ??? clotrimazole (LOTRIMIN) 1 % Cream apply topically three times a day 0 ??? fluticasone propionate (FLONASE) 50 mcg/actuation [place], Suspension SHAKE LQ AND U 1 SPR IEN D ??? NYSTOP Powder apply topically twice a day if needed 0 ??? furosemide (LASIX) 40 mg Tablet 80 mg daily. 1 ??? SYMBICORT 160-4.5 mcg/actuation HFA Aerosol Inhaler 1 puff 2 times daily. 0 ??? triamcinolone (KENALOG) 0.1 % Cream apply topically to RASH ON LEGS twice a day 0 ??? PROAIR HFA 90 mcg/actuation HFA Aerosol Inhaler Inhale 1-2 puffs into the lungs every 6 hours asneeded. 1 ??? ipratropium-albuterol (DUONEB) 0.5 mg-3 mg(2.5 mg base)/3 mL Solution for Nebulization Take 3 mLs by nebulization every 6 hours as needed. 0 No current facility-administered medications on file prior to visit. REVIEW OF SYSTEMS: see above HPI for additional pertinent +/- findings As above, no other new concerns. VITAL SIGNS: reported home weight:390 lbs. Last 5 weight values: Wt Readings from Last 5 Encounters: 09/21/19 (!) 183.2 kg (403 lb 12.8 oz) 09/10/19 (!) 179.5 kg (395 lb 12.8 oz) 08/20/19 (!) 185.5 kg (409 lb) 08/06/19 (!) 195 kg (430 lb) 08/06/19 (!) 195 kg (430 lb) PHYSICAL EXAM: not examined, phone visit. SUMMARY OF VISIT AND RECOMMENDATIONS: Radha Masterson was seen in follow up today and an updated medical, diet and activity review was completed. Additional goals were set for changes in health habits (see below) as was a plan for evaluationand treatment of obesity related co-morbidities. Medical issues and plan: Class 3 very severe Obesity: Medical Management: The patient is currently working toward bariatric surgery. She has lost 40 lbs since first visit which is 9.3% of her initial weight. Plan: continue with healthy eating and activity as tolerated. She is meeting goals. Phone visit with me 4-6 weeks. Would like to do phone visit with supervisor coke handling Kiersten in about a month. Discussed that currently all bariatric surgery is on hold. She will continue to work on requirements. Elevated fasting glucose: taking full dose metfomin. ?? Nutrition and activity recommendations to promote healthy weight DAVID: ?? Cont CPAP as prescribed Labs/Tests ordered today: none I spent a total of 20 minutes with the patient 15 minutes of which were spent in phone discussion/counseling re obesity, nutrition, meds and activity as well as obesity related co-morbidities Patient verbally consents to this telephone visit and understands that this visit may be billed, similar to a clinic office visit. documented in this encounter Plan of Treatment [...] google or use a book such as Nukona (available on [employer]) OR [employer] (if you're using a package, it will [...] adult documented in this encounter Care Teams Java J2Ee Software Engineer Relationship Specialty Start Date End Date Alphonso Murphy MD PCP - General Family Medicine 02/19/[address] [place] [address] documented as of this encounter
--- OUTSIDE RECORDS SUMMARY | 2022-03-05 02:17 | XMS_ITS | Encounter Summary ---
:1955 Author Organization [facility] [place] [address] Care Team Providers Name Role Phone Alphonso Murphy MD Primary Care Provider [phone] Encounter Details Date Type Department Care Team Description 06/27/2019 Ancillary Procedure Radiology Library at Josué Murphy [facility] [address] [id number] [phone] Social History Tobacco Use Types Packs/Day Years [...] Associated Diagnosis Comme nts FILM LIBRARY Routine 06/27/2019 12:00 AM Results for this STORAGE ONLY DX EST procedure ar e in WRIST the results section. documented in this encounter Results Film Library- Storage Only DX Wrist (06/27/2019 12:00 AM EST) Specimen (Source) Anatomical Location Collection Method / Collectio n Time Received Time / Laterality Volume Narrative RAD - 07/02/2019 1:24 PM EST This exam is auto-finalizing. It's purpo se is for storage only. Alphonso Murphy MD IM FILM LIBRARY ORDERABLES Performing Organization Address City/State/ZIP Code Phon e Number [place], [place] documented in this encounter Visit Diagnoses Not on filedocumented in this encounter Care Teams [employer] Planners Relationship Specialty Start Date End Date Alphonso Murphy MD PCP - General Family Medicine 02/19/[address] [place] [address] documented as of this encounter
--- OUTSIDE RECORDS SUMMARY | 2022-03-05 02:17 | XMS_ITS | Encounter Summary ---
:1955 [place] [address] Care Team Providers Name Role Phone Alphonso Murphy MD Primary Care Provider [phone] Encounter Details Date Type Department Care Team Description 11/29/2018 Ancillary Procedure Radiology Library at [facility] [id number] PULMONARY MEDICINE [phone] [place], [place] [address] (Wo rk) Social History Tobacco [...] Diagnosis Comme nts FILM LIBRARY Routine 11/29/2018 12:00 AM Results for this STORAGE ONLY DX EDT procedure ar e in CHEST the results section. documented in this encounter Results Film Library- Storage Only DX Chest (11/29/2018 12:00 AM EDT) Specimen (Source) Anatomical Location Collection Method / Collectio n Time Received Time / Laterality Volume Narrative RAD - 03/22/2019 3:56 AM EDT This exam is auto-finalizing. It's purpo se is for storage only. Padmini Lozano MD IMG FILM LIBRARY ORDERABLES Performing Organization Address City/State/ZIP Code Phon e Number [place], [place] documented in this encounter Visit Diagnoses Not on filedocumented in this encounter Care Teams Silk Screener Relationship Specialty Start Date End Date Alphonso Murphy MD PCP - General Family Medicine 02/19/[address] [place] [address] documented as of this encounter
--- OUTSIDE RECORDS SUMMARY | 2022-03-05 02:17 | XMS_ITS | Encounter Summary ---
:1955 Author Organization [facility] [place] [address] Care Team Providers Name Role Phone Alphonso Murhpy MD Primary Care Provider [phone] Encounter Details Date Type Department Care Team Description 08/13/2019 External Results [facility] RN [address] [place] [address] Social History Tobacco Use Types Packs/Day Years [...] Name Priority Date/Time Associated Diagnosis Comme nts [facility] EXTERNAL RESULT Routine 06/01/2019 Results for this PANEL procedure are i n the results section . [facility] EXTERNAL RESULT Routine 05/31/2019 Results for this PANEL procedure are i n the results section . [facility] EXTERNAL RESULT Routine 05/30/2019 Results for this PANEL procedure are i n the results section . documented in this encounter Results (ABNORMAL) [facility] External Results (06/01/2019) Analysis Performed At [facility] Signature Glucose 126 (ExtH) Fasting Comment: 70-100 BUN 25 Creatinine 0.67 Sodium 140 Potassium 4.2 Chloride 104 CO2 28 Anion Gap 8 Specimen (Source) Anatomical Location Collection Method / Collectio n Time Received Time / Laterality Volume 06/01/2019 Historical Provider POINT OF CARE TEST ORDERABLE S (ABNORMAL) [facility] External Results (05/31/2019) Analysis Performed At [facility] Signature Glucose 133 (ExtH) Fasting Comment: 70-100 BUN 26 Creatinine 0.63 Sodium 139 Potassium 4.5 Chloride 104 CO2 29 Anion Gap 6 Calcium 8.3 Specimen (Source) Anatomical Location Collection Method / Collectio n Time Received Time / Laterality Volume 05/31/2019 Historical Provider POINT OF CARE TEST ORDERABLE S (ABNORMAL) [facility] External Results (05/30/2019) Analysis Performed At [facility] Signature Glucose 114 (ExtH) Fasting Comment: 70-100 BUN 24 Creatinine 0.65 Sodium 140 Potassium 4.0 Chloride 105 CO2 29 Anion Gap 5 Calcium 8.3 Specimen (Source) Anatomical Location Collection Method / Collectio n Time Received Time / Laterality Volume 05/30/2019 Historical Provider POINT OF CARE TEST ORDERABLE S documented in this encounter Visit Diagnoses Not on filedocumented in this encounter Care Teams Mineral Technologist Relationship Specialty Start Date End Date Alphonso Murphy MD PCP - General Family Medicine 02/19/[address] [place] [address] documented as of this encounter
--- OUTSIDE RECORDS SUMMARY | 2022-03-05 02:17 | XMS_ITS | Encounter Summary ---
:1955 Author Organization [facility] Address [address] [place] [address] Care Team Providers Name Role Phone Alphonso Murphy MD Primary Care Provider [phone] Encounter Details Date Type Department Care Team Description 08/06/2019 Orders Only Orthopaedics at [facility] Maddy, Pain in right wrist [facility] Ron Velasquez Jr., [place] [address] [facility] [phone] DR ORTHOPAEDIC SURGERY [place], [place] [address] Social History Tobacco Use Types Packs/Day Years Used Date Former Smoker Cigarettes 3 40 Quit: 10/08/19 11 Smokeless Tobacco: Never Used Alcohol Use Standard Drinks/Week Comments No 0 (1 standard drink = 0.6 oz pure alcoho l) Sex Assigned at Date Recorded Not on file documented as of this encounter Plan of Treatment Not on filedocumented as of this encounter Results XR Wrist 2 views Right (08/06/2019 2:27 PM EST) Anatomical Region Laterality Modality Hand, Wrist Right Digital Radiography Specimen (Source) Anatomical Location Collection Method / Collectio n Time Received Time / Laterality Volume Impressions 08/06/2019 3:46 PM EST No fracture or other acute pathology. Mild osteoarthritis. Thank you for letting us participate in the care of this patient. For questions regarding this report, please contact e number below. ? Electronically signed by: Ron Galicia [facility] ([phone]), at 08/06/2019 3:46 PM Narrative 08/06/2019 3:46 PM EST EXAMINATION: XR WRIST 2 VIEWS RIGHT CLINICAL HISTORY: r wrist pain AP and Lat please! TECHNIQUE: Right wrist PA and lateral COMPARISON: None FINDINGS: No fracture or dislocation is seen. There is narrowing of the radial carpal and radial ulnar joints. The other joint spaces are intact. Ulna positive varianc e is present. Procedure Note Kane Newberry MD - 08/06/2019 EXAMINATION: XR WRIST 2 VIEWS RIGHT CLINICAL HISTORY: r wrist pain AP and Lat please! TECHNIQUE: Right wrist PA and lateral COMPARISON: None FINDINGS: No fracture or dislocation is seen. There is narrowing of the radial carpal and radial ulnar joints. The other joint spaces are intact. Ulna positive varianc e is present. IMPRESSION No fracture or other acute pathology. Mild osteoarthritis. Thank you for letting us participate in the care of this patient. For questions regarding this report, please contact e number below. Electronically signed by: Ron Galicia [facility] ([phone]), at 08/06/2019 3:46 PM Osmin Castañeda Jr., MD IMG DX ORDERABLES documented in this encounter Visit Diagnoses Diagnosis Pain in right wrist Pain in joint, forearm Pain in right wrist Pain in joint, forearm documented in this encounter Care Teams [employer] Relationship Specialty Start Date End Date Alphonso Murphy MD PCP - General Family Medicine 02/19/[address] [place] [address] documented as of this encounter
--- OUTSIDE RECORDS SUMMARY | 2022-03-05 02:17 | XMS_ITS | Encounter Summary ---
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 [address] Referral ID Status Reason Start Date Expiration Date Visits V isits Requested Authorized [id number] Closed Consult, 05/21/2019 05/20/2020 1 1 Test & Treat Encounter Details Date Type Department Care Team Description 08/06/2019 Office Visit Weight and Wellness Tisha Young Mo rbid obesity with BMI of 70 and over, adult (Primary Dx); at [facility] Obesity, unspecified classification, uns pecified obesity type, unspecified whether serious comorbidity present; [address] [facility] Other specified disorders of carbohydrate metabolism ; [place], [place] Prediabetes ; [id number] [facility] Grief at loss of child [phone] [facility] [place] [facility] Social History Tobacco Use Types Packs/Day Years Used Date Former Smoker Cigarettes 3 40 Quit: 10/08/19 11 Smokeless Tobacco: Never Used Alcohol Use Standard Drinks/Week Comments No 0 (1 standard drink = 0.6 oz pure alcoho l) Sex Assigned at Date Recorded Not on file documented as of this encounter Last Filed Vital Signs Vital Sign Reading Time Taken Comments Blood Pressure 142/78 08/06/2019 8:58 AM EST Pulse 83 08/06/2019 8:58 AM EST Temperature - - Respiratory Rate - - Oxygen Saturation 95% 08/06/2019 8:58 AM EST Inhaled Oxygen Concentration - - Weight 195 kg (430 lb) 08/06/2019 8:58 AM EST Height 162.6 cm (5' 4) 08/06/2019 8:58 AM EST Body Mass Index 73.81 08/06/2019 8:58 AM EST documented in this encounter Patient Instructions Patient InstructionsFlTisha gu MD - 08/06/2019 9:00 AM EST II recommend increasing the metformin to full dose which is 1000 mg twice daily. I did not do this today because I don't have labs. Intake appointment with our health speech coach and dietitian to be scheduled. See me in about a month. We will choose pathway if not already done (x ) I recommend that you attend bariatric info session ( ) you have already attended a bariatric info session You are going to consider the Healthy Lifestyles Program--this is a year-long program during which you will receive counseling, education, and support around nutrition, physical activity, and behavioral therapy. This involves 16 weekly classes that emphasize healthy eating, healthy movement and healthy living (taught by our health coaches), followed by monthly classes for the remained of the year, and regular check ins with me and the dietitian. Our health coaches are available to support you throughout the year-long program. The medical management pathway, now called Obesity medicine pathway, is also an option: This involves regular visits with me and the director of neurology and (if desired) the health speech coach (but not the classes). We also have a group called the ACT group and a clinical psychologist to assist patients with issuesrelated to binge eating or emotional eating. I did not request either of these since you think emotional eating is not an issue for you. If you decide to pursue bariatric surgery you will need to see a psychologist. For patients pursuing bariatric surgery, the first psychologist visit is done after 2 director of neurology visits. ( ) I requested that you be put on the waiting list for the ACT group. ( ) I requested that you be put on the waiting list for our psychologist. ( ) bariatric pathway. Initial goals: Tracking: Please track calorie intake via a paper journal or free calorie-tracking guerita on your smart phone (like [employer] or [employer] It) for review by our dietitian. Activity: You are doing pulmonary rehab 2x per week now and then will do maintenance. Resistance exercise (weights) can help to maintain muscle mass while you lose weight. Walk as much as you safely can with your walker. Nutrition: Aim for 3 meals. . Eat a breakfast containing some protein such as hard boiled egg, or cottage cheese. You don't like serbian yogurt. Make sleep a priority. ( ) I will do a referral for the sleep clinic because I think that you are at high risk for Obstructive sleep apnea. (x ) You are already treated and followed for sleep apnea. Goal is for loss of 5 to 10% of your initial weight in the first 6 to 12 months with medical therapy. Bariatric surgery usually leads to greater amounts of weight loss. You would have to lose some weight to qualify for bariatric surgery. Please review your AVS at home. For every visit please be prepared to tell me everything you ate anddrank the day before If you have questions or concerns please send a [place] message or call the office. I am currently if the office 3 days per week. All messages go to our nurse first. Check your med list , send message if meds are not correct. If you send a message about medication which I am prescribing, be sure to specify which medication you are referring to and the exact dose that you are taking and how often, and which pharmacy you wantto use. Please allow at least 3-5 business days for a medication refill. Lab work: Please return for FASTING labs (no food intake for 8-12 hours before, but continue to drink water): Biobank: ( x) yes ( ) no References which I recommend: Anxiety and depression The Happiness Trap by Rishabh Fischer (really about dealing with anxiety and depression, very readable). The Mindfulness and acceptance workbook for anxiety By Brandan Huntley. Mindful eating: What are you Hungry For? By Luis Gonzalez The Mindful Diet by Kim Molina and the [facility] group. Emotional eating: End Emotional Eating by Vianca Gonzalez Calming the Emotional Storm Imani Forbes Food choices/glycemic index (how much sugar is in foods) : Always hungry? by Dr. Sunny Huber. Medications which can help with weight loss in combination with lifestyle changes (healthy diet and activity): SOME OF THESE MEDS WOULD NOT BE RIGHT FOR YOU. The most effective anti-obesity medication is Qsymia which is a combination of phentermine and topiramate. We also sometimes give phentermine and topriamate separately for weight loss. Phentermine is astimulant. It can increase anxiety and cause jitteriness and sleep disturbance in some patients. It has a very small potential for abuse. It is a controlled substance. Regarding phentermine alone: Phentermine is approved by the FDA for the purpose of weight loss. This medication should be avoided in patients with a history of cardiovascular disease (including prior heart attack, known aneurysms or prior strokes), as well as a history of uncontrolled high blood pressure or tachyarrhythmias (fast heart rate) . It should also be avoided in patients with hyperthyroidism, seizures, severe anxiety, narrow angle glaucoma or bipolar disorder. Patients on this medication should be monitored with regards to blood pressure and heart rate. Potential side effects include (but are not limited to) palpitations, jitteriness, headaches, insomnia, constipation and eye pain. Patients should take phentermine before breakfast. They should avoid energy drinks, decongestants, and excessive caffeine while on phentermine. They should monitor their blood pressure at home (and be encouraged to purchase a blood pressure cuff). Patient needs to remember to HOLD the phentermine for one week before surgery or other procedures requiring sedation such as colonoscopy. Check with prescriber about whether the medication needs to be tapered. Topiramate is used for treating seizures, migraine headaches, and can be helpful for weight loss. For weight loss we start with very small doses which are usually well-tolerated, however it sometimes causes fatigue, tingling of the hands and feet, or mental fogginess. It should not be used in someone who has had kidney stones. It is totally contraindicated in , so for women of childbearingage, two methods of contraception and monthly tests, or a permanent method of contraception are required on this medication. Contrave: This is a combination of the antidepressant bupropion and the opioid nicolas naltrexone. Bupropion can be activating and sometimes causes anxiety. It can help with depression. The naltrexone sometimes causes nausea so we start with a very small dose. We avoid naltrexone plus bupropion in patients who have: Seizure disorder, severe anxiety, uncontrolled migraine disorder, atherosclerotic vascular disease, uncontrolled high blood pressure, chronic narcotic use, anorexia nervosa or bulimia nervosa. It can be helpful in patients who are smokers or patients with depression since bupropion can help with depression and can sometimes help with smoking cessation. We would stop Contrave in patients who are taking it who develop worsening migraines, uncontrolled high blood pressure, liver dysfunction, wo rsening depression, or suicidal ideation. Naltrexone is an opiod nicolas which also blocks appetite receptors. It will block the effects of narcotics such as percocet. It needs to be held for 3-4 days before a procedure requiring anesthesia. It can decrease the desire for alcohol. Possible naltrexone side effects include: nausea, headache, anxiety, diarrhea, dizziness fatigue and other possible side effects. Metformin is a medication used for diabetes and prediabetes which can also sometimes help with weight loss. Metformin is helpful for weight loss in about one third of patients who take it. It can be useful in slowing or helping to prevent the progression to diabetes. It can cause gastrointestinal sideeffects such as nausea and loose stool. If started at a low dose and increased gradually, it is usually tolerated. This medication has been around for more than 40 years and we have a lot of experiencewith it. We avoid metformin in people with severe kidney impairment or severe liver disease. Metformin can be helpful for people who gain weight on certain psychiatric medications, have polycystic ovary syndrome, have elevated fasting insulin, have metabolic syndrome or elevated fasting glucose (prediabetes). However it also help with weight loss in overweight patients who have none of these conditions. We recommend that patients take metformin take a B complex vitamin. There is a rare condition called lactic acidosis which can occur with metformin. Lorcaserin is a medication which is given less frequently than the medications mentioned above. The brand name is Belviq. it works on the serotonin system affecting appetite. Lorcaserin is FDA approvedfor the purpose of weight loss. Lorcaserin should not be used in patients with a history of congestive heart failure, valvular heartdisease, significantly slow heart rate, or uncontrolled mood disorders. It should also be avoided inpatients on SSRI anti-depressants or anti-dopaminergic agents. Potential side effects include (but are not limited to) serotonin syndrome , mood alterations. Liraglutide (Victoza, Saxenda) Liraglutide is a medication developed for diabetes which is also used for weight loss in people who do not have diabetes. Brand names are Victoza and Saxenda. This medication requires daily injection. It should not be used in people who have a personal or family history of medullary thyroid cancer, and should not be used in most people who have had pancreatitis. It can cause nausea. ?? We only give liraglutide to people who have no personal or family history of medullary thyroid cancer, MEN type 2, or pancreatic cancer. ?? Discussion of potential risks and benefits needs to be done before using liraglutide in a patientwith a history of pancreatitis. Side effects can include: GI upset (nausea, vomiting, diarrhea, constipation); these side effects normally improve after 2-3 weeks on the medication. Some of these meds are used off label for weight loss. With anti-obesity medication, loss of 5 to10% of weight is considered a good response. Patients needs to be seen regularly in the Weight and Wellness clinic (sometimes monthly at first and usually at least every 3 months) for monitoring while taking anti- obesity medication. None of these medications ( with the possible exception of metformin) are safe for use during . Anti-obesity medications only work when combined with diet and activity efforts. If the patient responds well to a medication and then that medication is stopped, usually the weight is re-gained. documented in this encounter Progress Notes Dorina Vila - 08/06/2019 9:00 AM EST RESEARCH STUDY CONSENTING VISIT Visit Date: 08/06/19 PI/Designee: Dr. Nakul Nguyen/Mike Becerra [facility] [id number]: [facility] [employer] VELOS: [id number] Radha Masterson??consented to participate in the above-named protocol. Prior to giving informed consent, the subject had the opportunity to: ?? Read the consent form (or have it read to him/her) ? Discuss the protocol participation with research (or designee) including: ?? Purpose of the study ?? Painful or uncomfortable procedures ?? Risks/benefits ?? Alternatives ?? Who to call with questions ?? Withdrawal rights ?? Ask questions; and ? Consult with family or other physicians ? The subject indicated his/her consent by signing and dating the Patient Informed Consent Form ? Informed consent was conducted prior to any research-related procedures. ?? The subject was provided with a fully executed copy of the consent. Tisha Young MD - 08/06/2019 9:00 AM EST Weight [facility] Wellness [facility] Visit Patient Name: Radha Masterson Date of : 1955 Age: 64 y.o. Patient lives in: [place], [place] .Referred by: Sunitha Reilly of cardiology. Alphonso Murphy MD Is PCP. Thank you for referring Radha Masterson to the [facility] for a consultation for obesity management. I reviewed past records including notes, labs, available survey results and other available data and discussed them with the patient. CHIEF COMPLAINT: Management of excess weight HISTORY OF PRESENT ILLNESS: Radha Masterson is a 64 y.o. female referred to the [facility] for an evaluation of obesity. This is the patient's first visit. Unaccompanied (jose guadalupe grandson sat in waiting room). In wheelchair with oxygen on. . Problem list reviewed. Medical issues include: Pulmonary HTN, DAVID, chronic HF with preserved EF, anxiety, depression, pre- diabetes. Metformin was recently started. She wears oxygen 24 hours per day. Quit smoking 15 years ago. Meds:reviewed. Asked her to check her home meds and make sure that our list is correct. Allergies: reviewed. Reason for being here: I ended up here because I came down to see construction assistant because a valve in my heart is enlarged and has a lot of pressure. They and my doc says I have to lose some weight. I have always been big. When I was still walking I was 360 lbs and I went to work every day. 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 Stopped working 2006 ; pulled a back muscle, then had knee replacement, got infected, took 2 years to have this this resolved. Multiple surgeries. I don't eat any different than I have been. I have cut back on a lot of starches. My downfall is cheese. Not a big sweet eater. Potato chips every now and then. Weight History: overwt as a child. At was 13 lbs. overwt all her life. What have you tried for weight loss? (see survey also): has tried eating better. Has not tried any specific diets. Part of problem is I don't eat breakfast and most of the time I don't eat lunch. I just eat supper. Regarding her respiratory problems: Has bipap. On oxygen all the time, 3 liters in day, 5 at night. My breathing is the worst. It is getting worse. Sees lung doctor in [facility]. Last time she was in the hospital: [facility] a few months. Was on prednisone. On pred 2 to 3 x per year. From [facility] cardiology eval of 05/2019: She has mild pulmonary hypertension documented on her echocardiogram. Fortunately her RV function is well preserved. This is most likely WHO group 3 pulmonary hypertension due to hypoxemia and obesity hypoventilation syndrome. There may be some contribution from diastolic dysfunction as well. Pulmonary vasodilator therapy is not helpful for this group of patients. Treatment should be focusedon addressing underlying conditions (obesity, hypoxemia). ??24 hour diet recall: yesterday ( Tuesday.) Morning: water Lunch: 3 slices of ham with cheese. Rolls it up. Supper : potato with pork roast and green beans. Drank V8 juice. Evening: nothing. Eats bread only once or twice per week. Considering bariatric surgery? I would like it because I think I would lose weight quicker. Went to info session here 4 to 5 years ago. Then got sick; did not pursue it. Brother had it but she does nottalk to him. He lost a lot of weight and regained almost all the weight. Alcohol: little Soda: [place], about 2 liters per week. Has cut way back, used to be more. Binge eating: no Emotional eating: No Fast food, including pizza and Surinamese: once or twice per month. Do you cook? Yes. Lives alone. Her 2 grandchildren stay over a few times per week. She does the grocery shopping, takes shuttle bus. Have you taken prescription meds for weight loss? No Worked with a director of neurology? Yes but was of no help. Talked about dividing plate into 4. Do you do tracking of your food intake? No. Activity/exercise: Can walk 10 to 20 feet with walker, Cannot walk without walker, Sister helps her with showering. Uses medical rides. Friend brought her today. Does not drive. [facility] Initial Responses 08/06/2019 PROMIS 6B Scores [...] or no exercise in a day Yes . Impact of weight on the patient's life/The patient's greatest concerns today regarding weight include : breathing trouble. Barriers and Challenges: very limited walking. DRRP Score:10 REVIEW OF SYSTEMS: see above HPI for additional pertinent +/- findings Constitutional: In pain from back and left leg. appetite: not hungry a whole lot. Energy: not tired. Hx of sleep apnea? Yes treated. HEENT: No ear pain,congestion, sore throat, visual complaints. regular eye exams? No recently but thinks several years ago. CV: No chest pain or discomfort, no palpitations, orthopnea, PND. occ chest pains, have been checkedout, it is not my heart. occ a burning when having trouble breathing. Sleeps with head elevated. LE edema: ( ) no ( x) yes RESP: Yes sometimes shortness of breath at rest , and cough, or wheezing. FRY: ( ) no ( x) Yes SOB with doing things. GI: No nausea,vomiting, diarrhea, constipation, abdominal pain : No urinary symptoms. Stress incontinence: yes. Musculoskeletal: joint pains: Back, left leg. Fractured R wrist. Has not healed. Sees ortho today. Integumentary: No skin breakdown/ulcers. Intertrigo.: Yes. Psychiatric: Anxiety: variable control Depression: Under OK control. this the first year without her son who in october. Neurological: headaches: Occ. Have not been called migraines. Endocrine: No cold intolerance, dry skin, dry/brittle hair, constipation, excessive thirst. Reproductive: G4 PAST MEDICAL HISTORY Medical and Surgical History: Reviewed History of kidney stones: no History of seizures: No History of glaucoma: no Family History: Reviewed. Major wt issues; All my brothers except 2 . Parents. Mom had diabetes. Social History: Reviewed. [place] in : [place] The patient's support system includes: Sister, Oldest son VITAL SIGNS: Vitals: 08/06/19 0858 BP: 142/78 BP Location (NBP): Left arm Pulse: 83 SpO2: 95% Weight: (!) 195 kg (430 lb) Height: 162.6 cm (5' 4) Body mass index is 73.81 kg/m??. Last 5 weight values: Wt Readings from Last 5 Encounters: 08/06/19 (!) 195 kg (430 lb) 05/21/19 (!) 191.9 kg (423 lb) 01/21/17 (!) 186.2 kg (410 lb 8 oz) 11/08/14 (!) 173.7 kg (383 lb) 10/08/14 (!) 174.6 kg (385 lb) PHYSICAL EXAM: Gen: Alert, pleasant, NAD. ++ central adiposity Skin: + mild erythema of the intertriginous folds, HEENT: NC/AT, PERRLA, EOMI, clear conjunctivae Neck: supple and thick, no LAD, no thyromegaly, no thyroid nodules appreciated CV: RRR, NL S1S2, no murmur Resp: lungs clear, no wheezes/crackles Abd: +BS, soft, NT/ND, no HSM/masses appreciated Neuro: Alert and oriented, CN II-XII grossly intact. Detailed neuro exam not done. Extremities: No CC. 1+ edema ankles Psych: NL affect today PREVIOUS LABS AND IMAGING: No results found for: CHLPL No results found for: HDL No results found for: LDLCHOL Lab Results Component Value Date TRIG 113 01/16/2017 No results found for: CHOLHDL No results found for: HA1C Lab Results Component Value Date NA 138 01/21/2017 K 3.8 01/21/2017 CL 96 (L) 01/21/2017 CO2 29 01/21/2017 BUN 10 01/21/2017 CREATININE 0.66 (L) 01/21/2017 GLUCOSE 92 01/21/2017 CALCIUM 8.5 01/21/2017 Lab Results Component Value Date ALT 25 01/16/2017 AST 13 01/16/2017 ALKPHOS 48 01/16/2017 BILITOT 0.5 01/16/2017 BILIDIR 0.2 01/16/2017 ALBUMIN 2.6 (L) 01/16/2017 PROT 5.1 (L) 01/16/2017 SUMMARY OF VISIT AND RECOMMENDATIONS: Radha Masterson presents to the [facility] for a consultative visit regarding obesity management. The patient has Class 3 extremely severe Obesity; Body mass index is 73.81 kg/m??. . In addition, Radha Masterson has co-morbidities associated with both adipocyte dysfunction (pre-DM ) and with excessive adipocyte mass ( Pulmonary HTN, DAVID ). Radha Masterson's history and physical exam were not suggestive of an underlying medical disease that can contribute to weight gain. However, obesity is a multifactorial disease, and in this case, the following factors could be potential contributors: ?? Genetics and Epigenetics: + family hx of obesity. + Lifelong obesity. ?? Medications: Taking the following medications which can be associated with weight gain: None currently; takes prednisone 3-4 times per year. ?? Sleep Disturbance and Circadian Pattern: Severe DAVID, currently treated. ?? Environment ?? Mental Health and/or Disordered Eating ?? Nutrition and Eating Patterns: eats only once daily. Drinks [place] Discussed cutting this out. ?? Lifestyle and Inactivity: Mostly wheelchair bound. Can walk short distances with difficulty with rolling walker; chronic oxygen use. Doing pulmonary rehab now. ?? Social and Cultural Influences ?? Stress and/or Trauma History - the prolonged cortisol release associated with chronic stress is strongly correlated with the development of obesity The patient has been informed that obesity is a chronic disease requiring superintendent terminal management. Obesity is associated with increased risk of adverse health and psychosocial consequences as well as higher mortality. In addition, the increase in visceral fat volume places the patient at greater risk formetabolic disease. We reviewed the overall goals for obesity management, which include improving thepatient's health, quality of life, and body weight/composition. I explained that a weight loss of just 5-10% of body weight can be associated with improvements in health. For this patient a 10% weight loss would be 43 lbs. However she would benefit from much greater weight loss in terms of her obesity/ hypoventilation syndrome and her mobility issues. Medical issues and plan: Class 3 very severe Obesity: Treatment options were discussed with the patient and include intensivelifestyle intervention, pharmacotherapy, and bariatric surgical procedures. At present the patient is Considering bariatric surgery but is unsure. I discussed that bariatric surgery is mostly likely toresult in the significant weight loss that patient desires and I recommend that the patient attends a bariatric info session. Altho she says that importance of weight loss is a 10/10 and her confidencethat she can succeed is 10/10 she expressed doubt that she can make minor changes such as eating breakfast (recommended that she eat a hardboiled egg for breakfast). Discussed that major changes in hereating habits including 3 regular meals instead of just eating once daily would be necessary to succeed with bariatric surgery. ??? Medical Management with intensive lifestyle counseling: Discussed the Healthy Lifestyles Programand the Medical management pathway; now called Obesity medicine pathway. The HLP is a yearlong program during which the patient will receive counseling, education, and support around nutrition, physical activity, and behavioral therapy; it involves weekly classes for 16 weeks, then monthly health speech coach visits along with regular provider and director of neurology visits. The medical management pathway involves regular provider and director of neurology visits and optional health speech coach visits. Patient lives one hour away anddepends on medical rides so HL will not work for her since rides to classes are not covered. Will schedule a baseline nutrition, health speech coach Assessment. Preliminary goals for healthy eating, trackingof food intake, and activity and discussed with patient. See patient instructions. ?? Labs to assess co-morbidities: CMP, FLP, HA1c, vit D, TSH. ?? Discuss Biobank Participation: discussed and ( x ) Consented ( ) Declined ( ) not appropriate ?? Further recommendations: ?? Annual screen for or assessment of Type II Diabetes, HTN, Hyperlipidemia, Depression, DAVID, NAFLD,vitamin D deficiency and renal disease ?? Given the association of obesity with cancer, all age appropriate cancer screenings should be UTD ?? Medication Review: If possible medications that promote weight gain should be avoided and medications that are weight-neutral or promote weight loss should be considered. ??? Medication therapy: We discussed some of the following meds which can help with weight loss including qsymia (phentermine + topiramate), phentermine alone, topiramate alone, contrave ( bupropion + naltrexone) metformin, liraglutide, semaglutide, locaserin and the risks and benefits of each. Obesity Co-morbidities: nutrition, behavioral health and activity recommendations to promote healthyweight and potentially see an improvement in the following adverse health consequences: # elevated fasting glucose, recently started metformin. She says she is tolerating well without sideeffects. I agree with the use of metformin in this patient as this drug promotes modest weight loss in some patients. I recommend increasing to full dose of 1000 mg twice daily. I did not do this today becauseI have no labs on this patient. Trial of liraglutide in future if she agrees. Discussed anti-obesitymedications and gave written info. Would not use a stimulant due to pulmonary HTN. # Pulmonary HTN: cardiology note reviewed. . 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. #DAVID: ?? diagnosed with sleep study Continue biPAP as prescribed Patient Instructions II recommend increasing the metformin to full dose which is 1000 mg twice daily. I did not do this today because I don't have labs. Intake appointment with our health speech coach and dietitian to be scheduled. See me in about a month. We will choose pathway if not already done (x ) I recommend that you attend bariatric info session ( ) you have already attended a bariatric info session You are going to consider the Healthy Lifestyles Program--this is a year-long program during which you will receive counseling, education, and support around nutrition, physical activity, and behavioral therapy. This involves 16 weekly classes that emphasize healthy eating, healthy movement and healthy living (taught by our health coaches), followed by monthly classes for the remained of the year, and regular check ins with me and the dietitian. Our health coaches are available to support you throughout the year-long program. The medical management pathway, now called Obesity medicine pathway, is also an option: This involves regular visits with me and the director of neurology and (if desired) the health speech coach (but not the classes). We also have a group called the ACT group and a clinical psychologist to assist patients with issuesrelated to binge eating or emotional eating. I did not request either of these since you think emotional eating is not an issue for you. If you decide to pursue bariatric surgery you will need to see a psychologist. For patients pursuing bariatric surgery, the first psychologist visit is done after 2 director of neurology visits. ( ) I requested that you be put on the waiting list for the ACT group. ( ) I requested that you be put on the waiting list for our psychologist. ( ) bariatric pathway. Initial goals: Tracking: Please track calorie intake via a paper journal or free calorie-tracking guerita on your smart phone (like Makoondi or Lose It) for review by our dietitian. Activity: You are doing pulmonary rehab 2x per week now and then will do maintenance. Resistance exercise (weights) can help to maintain muscle mass while you lose weight. Walk as much as you safely can with your walker. Nutrition: Aim for 3 meals. . Eat a breakfast containing some protein such as hard boiled egg, or cottage cheese. You don't like serbian yogurt. Make sleep a priority. ( ) I will do a referral for the sleep clinic because I think that you are at high risk for Obstructive sleep apnea. (x ) You are already treated and followed for sleep apnea. Goal is for loss of 5 to 10% of your initial weight in the first 6 to 12 months with medical therapy. Bariatric surgery usually leads to greater amounts of weight loss. You would have to lose some weight to qualify for bariatric surgery. Please review your AVS at home. For every visit please be prepared to tell me everything you ate anddrank the day before If you have questions or concerns please send a Sagence message or call the office. I am currently if the office 3 days per week. All messages go to our nurse first. Check your med list , send message if meds are not correct. If you send a message about medication which I am prescribing, be sure to specify which medication you are referring to and the exact dose that you are taking and how often, and which pharmacy you wantto use. Please allow at least 3-5 business days for a medication refill. Lab work: Please return for FASTING labs (no food intake for 8-12 hours before, but continue to drink water): Biobank: ( x) yes ( ) no References which I recommend: Anxiety and depression The Happiness Trap by Rishabh Fischer (really about dealing with anxiety and depression, very readable). The Mindfulness and acceptance workbook for anxiety By Brandan Huntley. Mindful eating: What are you Hungry For? By Luis Gonzalez The Mindful Diet by Kim Molina and the [facility]. Emotional eating: End Emotional Eating by Vianca Gonzalez Calming the Emotional Storm Imani Forbes Food choices/glycemic index (how much sugar is in foods) : Always hungry? by Dr. Sunny Huber. Medications which can help with weight loss in combination with lifestyle changes (healthy diet and activity): SOME OF THESE MEDS WOULD NOT BE RIGHT FOR YOU. The most effective anti-obesity medication is Qsymia which is a combination of phentermine and topiramate. We also sometimes give phentermine and topriamate separately for weight loss. Phentermine is astimulant. It can increase anxiety and cause jitteriness and sleep disturbance in some patients. It has a very small potential for abuse. It is a controlled substance. Regarding phentermine alone: Phentermine is approved by the FDA for the purpose of weight loss. This medication should be avoided in patients with a history of cardiovascular disease (including prior heart attack, known aneurysms or prior strokes), as well as a history of uncontrolled high blood pressure or tachyarrhythmias (fast heart rate) . It should also be avoided in patients with hyperthyroidism, seizures, severe anxiety, narrow angle glaucoma or bipolar disorder. Patients on this medication should be monitored with regards to blood pressure and heart rate. Potential side effects include (but are not limited to) palpitations, jitteriness, headaches, insomnia, constipation and eye pain. Patients should take phentermine before breakfast. They should avoid energy drinks, decongestants, and excessive caffeine while on phentermine. They should monitor their blood pressure at home (and be encouraged to purchase a blood pressure cuff). Patient needs to remember to HOLD the phentermine for one week before surgery or other procedures requiring sedation such as colonoscopy. Check with prescriber about whether the medication needs to be tapered. Topiramate is used for treating seizures, migraine headaches, and can be helpful for weight loss. For weight loss we start with very small doses which are usually well-tolerated, however it sometimes causes fatigue, tingling of the hands and feet, or mental fogginess. It should not be used in someone who has had kidney stones. It is totally contraindicated in , so for women of childbearingage, two methods of contraception and monthly tests, or a permanent method of contraception are required on this medication. Contrave: This is a combination of the antidepressant bupropion and the opioid nicolas naltrexone. Bupropion can be activating and sometimes causes anxiety. It can help with depression. The naltrexone sometimes causes nausea so we start with a very small dose. We avoid naltrexone plus bupropion in patients who have: Seizure disorder, severe anxiety, uncontrolled migraine disorder, atherosclerotic vascular disease, uncontrolled high blood pressure, chronic narcotic use, anorexia nervosa or bulimia nervosa. It can be helpful in patients who are smokers or patients with depression since bupropion can help with depression and can sometimes help with smoking cessation. We would stop Contrave in patients who are taking it who develop worsening migraines, uncontrolled high blood pressure, liver dysfunction, wo rsening depression, or suicidal ideation. Naltrexone is an opiod nicolas which also blocks appetite receptors. It will block the effects of narcotics such as percocet. It needs to be held for 3-4 days before a procedure requiring anesthesia. It can decrease the desire for alcohol. Possible naltrexone side effects include: nausea, headache, anxiety, diarrhea, dizziness fatigue and other possible side effects. Metformin is a medication used for diabetes and prediabetes which can also sometimes help with weight loss. Metformin is helpful for weight loss in about one third of patients who take it. It can be useful in slowing or helping to prevent the progression to diabetes. It can cause gastrointestinal sideeffects such as nausea and loose stool. If started at a low dose and increased gradually, it is usually tolerated. This medication has been around for more than 40 years and we have a lot of experiencewith it. We avoid metformin in people with severe kidney impairment or severe liver disease. Metformin can be helpful for people who gain weight on certain psychiatric medications, have polycystic ovary syndrome, have elevated fasting insulin, have metabolic syndrome or elevated fasting glucose (prediabetes). However it also help with weight loss in overweight patients who have none of these conditions. We recommend that patients take metformin take a B complex vitamin. There is a rare condition called lactic acidosis which can occur with metformin. Lorcaserin is a medication which is given less frequently than the medications mentioned above. The brand name is Belviq. it works on the serotonin system affecting appetite. Lorcaserin is FDA approvedfor the purpose of weight loss. Lorcaserin should not be used in patients with a history of congestive heart failure, valvular heartdisease, significantly slow heart rate, or uncontrolled mood disorders. It should also be avoided inpatients on SSRI anti-depressants or anti-dopaminergic agents. Potential side effects include (but are not limited to) serotonin syndrome , mood alterations. Liraglutide (Victoza, Saxenda) Liraglutide is a medication developed for diabetes which is also used for weight loss in people who do not have diabetes. Brand names are Victoza and Saxenda. This medication requires daily injection. It should not be used in people who have a personal or family history of medullary thyroid cancer, and should not be used in most people who have had pancreatitis. It can cause nausea. ?? We only give liraglutide to people who have no personal or family history of medullary thyroid cancer, MEN type 2, or pancreatic cancer. ?? Discussion of potential risks and benefits needs to be done before using liraglutide in a patientwith a history of pancreatitis. Side effects can include: GI upset (nausea, vomiting, diarrhea, constipation); these side effects normally improve after 2-3 weeks on the medication. Some of these meds are used off label for weight loss. With anti-obesity medication, loss of 5 to10% of weight is considered a good response. Patients needs to be seen regularly in the Weight and Wellness clinic (sometimes monthly at first and usually at least every 3 months) for monitoring while taking anti- obesity medication. None of these medications ( with the possible exception of metformin) are safe for use during . Anti-obesity medications only work when combined with diet and activity efforts. If the patient responds well to a medication and then that medication is stopped, usually the weight is re-gained. WWC Pathway: The following care pathway has been decided in discussion with the patient:. If patient does not want to pursue bariaric surgery, all patients are assigned to medical management pathway and decision about Healthy Lifestyles Program is made at one month follow up visit. PATHWAY [facility] Healthy Lifestyle Group 9049 Medication Therapy 9051 Bariatric Surgery 9052 Bariatric Endoscopy 9053 x Medical Management 9054 yes Adult Biobank 9145 I spent a total of 60 minutes with the patient 35 minutes of which were spent in [id number] discussion/counseling re obesity,medication, nutrition and activity as well as obesity [...] google or use a book such as [employer] (available on WiWide) OR [employer] (if you're using a package, it will have calorie and protein info on the back) - The other thing to write down would be grams of protein - 1500 is a good starting point for a ca jeffrey goal documented as of this encounter Results Vitamin B12 (09/10/2019 1:29 PM EST) athologist Signature Vitamin B-12 450 232 - 1,245 [facility] pg/mL [facility] Specimen Anatomical Collection Method Collection Time Receive d Time (Source) Location / / Volume Laterality Blood specimen 09/10/2019 1:29 PM 020 4:17 (specimen) EST PM EST Resulting Agency Comment Spec In Lab Tisha Young MD CHEMISTRY ORDERABLES Performing Organization Address City/State/ZIP Code Phon e Number [facility] [place] [address] (ABNORMAL) Vitamin D, 25-Hydroxy (09/10/2019 1:29 PM EST) athologist Signature 25-OH Vit D 12 (L) 30 - 100 [facility] Total ng/mL [facility] Comment: As of 2019, 25-hydroxyvitamin D kyler ting has moved from the IDS-iSYS to the Moy Hubert. No substantial change in or asured values is expected. Specimen Anatomical Collection Method Collection Time Receive d Time (Source) Location / / Volume Laterality Blood specimen 09/10/2019 1:29 PM 020 4:17 (specimen) EST PM EST Resulting Agency Comment Spec In Lab Tisha Young MD CHEMISTRY ORDERABLES Performing Organization Address City/[facility]/ZIP Code Phon e Number [address] TSH (09/10/2019 1:29 PM EST) P athologist Signature TSH 1.38 0.27 - 4.20 [facility] mcIU/mL [facility] Specimen Anatomical Collection Method Collection Time Receive d Time (Source) Location / / Volume Laterality Blood specimen 09/10/2019 1:29 PM 020 4:18 (specimen) EST PM EST Resulting Agency Comment Spec In Lab Tisha Young MD CHEMISTRY ORDERABLES Performing Organization Address City/[facility]/ZIP Code Phon e Number [address] Hemoglobin A1c (09/10/2019 1:29 PM EST) athologist Signature Hemoglobin A1C 5.6 4.3 - 5.6 [facility] Comment: Reference Range: 4.3 - [...] Mellitus, Diabetes Care 2013; 36: Suppl. 1, S67-51 Est Avg Gluc 113 mg/dL [facility] Comment: eAG equivalents for HbA1c percentages: HbA1c(%) ?eAG(mg/dL) 6.0 ?126 6.5 ?140 7.0 ?154 7.5 ?169 8.0 ?183 8.5 ?197 9.0 ?212 9.5 ?226 10.0 ? 240 Limitations: The eAG calculation has not been validated on women, individuals below 18 years old and above 70 years old, and individuals with hemoglobinopathies. Additional resources are available on ADA website. Morales BERNSTEIN, Rey J, Jose L R, et al. ??Tr anslating the A1C assay into estimated average glucose values. ??Diabetes Care 2008:31(8):7603-5666. Specimen Anatomical Collection Method Collection Time Receive d Time (Source) Location / / Volume Laterality Blood specimen 09/10/2019 1:29 PM 020 4:12 (specimen) EST PM EST Resulting Agency Comment Spec In Lab Tisha Young MD CHEMISTRY ORDERABLES Performing Organization Address City/State/ZIP Code Phon e Number [place] [phone] (ABNORMAL) CMP w/fasting Glucose (09/10/2019 1:29 PM EST) athologist Signature Glucose 100 (H) 65 - 99 [facility] Fasting mg/dL [facility] Comment: ?Fasting* Glucose Interpretive C riteria Normal ?65-99 mg/dL Impaired Fasting glucose ?100-125 mg/dL Consistent with Diabetes Mellitus ? >or= 126 mg/dL *Fasting is defined as no caloric intake for at least 8 hours In the absence of unequivocal hypergly cemia a plasma glucose value of >or= 126 mg/dL should be repeated on a subseq uent day. Diagnosis and Classification of Diabetes Mellitus, Position Statement from the [place] [employer] Association. ??Diabete s Care, Volume 33, Supplement 1, Aug 2009 BUN 17 8 - 18 mg/dL [facility] Creatinine 0.59 (L) 0.70 - 1.20 mg/dL [facility] Sodium 141 135 - 145 mmol/L [facility] Potassium 3.8 3.5 - 5.0 mmol/L [facility] Comment: Please note: ??Patients with WBC >100,00 0 may have falsely elevated Potassium levels. ??For accurate Potassium quantif ication in these patients send serum separator tube (gold top) for subsequent determinations. ??Contact the Clinical Chemistry Laboratory if there are any qu estions. Chloride 101 98 - 107 mmol/L [facility] CO2 28 22 - 31 mmol/L [facility] Anion Gap 12 5 - 15 mmol/L [facility] Calcium 9.7 8.5 - 10.5 mg/dL [facility] Total Protein 7.4 6.1 - 8.0 gm/dL [facility] Albumin 4.1 3.2 - 5.2 gm/dL [facility] AST 32 (H) 0 - 30 unit/L [facility] ALT 38 (H) 0 - 30 unit/L [facility] Alk Phos 74 35 - 105 unit/L [facility] Total Bilirubin 1.2 0.2 - 1.3 mg/dL [facility] Estimated GFR 98 >=60 mL/min/1.73 m?? [facility] Comment: The eGFR was calculated using the CKD-EP I equation. As with all creatinine based estimates of kidney function, eGFR values calculated with the CKD-EPI equation are not accurate in patients wi th acute kidney failure, extremes of body mass or the acutely ill. http://[employer]/[facility] WOODWARDnkf eGFR 113 >=60 mL/min/1.73 m?? [facility] Comment: The eGFR was calculated using the CKD-EP I equation. As with all creatinine based estimates of kidney function, eGFR values calculated with the CKD-EPI equation are not accurate in patients wi th acute kidney failure, extremes of body mass or the acutely ill. [email or web address]/[facility]nkf Specimen Anatomical Collection Method Collection Time Receive d Time (Source) Location / / Volume Laterality Blood specimen 09/10/2019 1:29 PM 020 4:18 (specimen) EST PM EST Resulting Agency Comment Spec In Lab Tisha Young MD CHEMISTRY ORDERABLES Performing Organization Address City/[facility]/ZIP Code Phon e Number [address] Biorepository Request (09/10/2019 1:29 PM EST) [facility] gist Method Time Signature Biorepository Sample in [facility] LABORATORY Specimen Anatomical Collection Method Collection Time Receive d Time (Source) Location / / Volume Laterality Blood specimen 09/10/2019 1:29 PM 020 9:23 (specimen) EST AM EST Resulting Agency Comment Spec In Lab Tisha Young MD CHEMISTRY ORDERABLES Performing Organization Address City/[facility]/ZIP Code Phon e Number [address] documented in this encounter Visit Diagnoses Diagnosis Morbid obesity with BMI of 70 and over, adult - Primary Morbid obesity Obesity, unspecified classification, uns pecified obesity type, unspecified whether serious comorbidity present Other specified disorders of carbohydrat e metabolism Prediabetes Other abnormal glucose Grief at loss of child Adjustment disorder with depressed mood documented in this encounter Care Teams Small Products Assembler Relationship Specialty Start Date End Date Alphonso Murphy MD PCP - General Family Medicine 02/19/[address] [place] [address] documented as of this encounter
--- OUTSIDE RECORDS SUMMARY | 2022-03-05 02:17 | XMS_ITS | Encounter Summary ---
:1955 Author Organization [place] [address] Care Team Providers Name Role Phone Alphonso Murphy MD Primary Care Provider [phone] Encounter Details Date Type Department Care Team Description 05/21/2019 Hospital Encounter Cardiac Rehab [facility] Cardiac Rehab Pr og, [facility] [place] [address] Social History Tobacco Use Types Packs/Day [...] Sig Dispensed Refills Start Date End Date OXYGEN-AIR DELIVERY 2 L. 0 12/24/2014 SYSTEMS MISC clotrimazole (LOTRIMIN) 3 times daily as 0 2018 1 % Cream needed. NYSTOP Powder apply topically twice 0 02/20/2019 a day if needed triamcinolone (KENALOG) 2 times daily as 0 2018 0.1 % Cream needed. ipratropium-albuterol Take 3 mLs by 0 12/02/2016 (DUONEB) 0.5 mg-3 nebulization every 6 mg(2.5 mg base)/3 mL hours as needed. Solution for Nebulization furosemide (LASIX) 40 40 mg daily. 1 12/16/2018 0 01/01/2021 mg Tablet SYMBICORT 160-4.5 1 puff 2 times daily. 0 019 11/06/2020 mcg/actuation HFA Aerosol Inhaler PROAIR HFA 90 Inhale 1-2 puffs into 1 01/03/2017 12/17/2020 mcg/actuation HFA the lungs every 6 Aerosol Inhaler hours as needed. documented as of this encounter Progress Notes Maris Browning - 05/21/2019 3:40 PM EDT 6 minute walk test was not done. Patient uses electronic wheelchair. She uses walker at home but did not bring it with her to appointment. documented in this encounter Plan of Treatment Not on filedocumented as of this encounter Visit Diagnoses Not on filedocumented in this encounter Care Teams Supervisor Pipelines Relationship Specialty Start Date End Date Alphonso Murphy MD PCP - General Family Medicine 02/19/[address] [place] [address] documented as of this encounter
--- OUTSIDE RECORDS SUMMARY | 2022-03-05 02:17 | XMS_ITS | Encounter Summary ---
:1955 [place] [address] Care Team Providers Name Role Phone Alphonso Murphy MD Primary Care Provider [phone] Encounter Details Date Type Department Care Team Description 12/04/2018 Ancillary Procedure Radiology Library at Josué Lozano MARITZA GARCIA [facility] [place] [address] PULMONARY MEDICINE [phone] [place], [place] [address] (Wo rk) Social History Tobacco [...] Associated Diagnosis Comme nts FILM LIBRARY Routine 12/04/2018 12:00 AM Results for this STORAGE ONLY DX EDT procedure ar e in CHEST the results section. documented in this encounter Results Film Library- Storage Only DX Chest (12/04/2018 12:00 AM EDT) Specimen (Source) Anatomical Location Collection Method / Collectio n Time Received Time / Laterality Volume Narrative RAD - 03/22/2019 3:57 AM EDT This exam is auto-finalizing. It's purpo se is for storage only. Padmini Lozano MD IMG FILM LIBRARY ORDERABLES Performing Organization Address City/State/ZIP Code Phon e Number [place], [place] documented in this encounter Visit Diagnoses Not on filedocumented in this encounter Care Teams Investigator Welfare Relationship Specialty Start Date End Date Alphonso [place] MD PCP - General Family Medicine 02/19/[address] [place] [address] documented as of this encounter
--- OUTSIDE RECORDS SUMMARY | 2022-03-05 02:17 | XMS_ITS | Encounter Summary ---
:1955 Author Organization [facility] Address [address] [place] [address] Care Team Providers Name Role Phone Alphonso Murpyh MD Primary Care Provider [phone] Encounter Details Date Type Department Care Team Description 09/10/2019 [facility] Obesity, unspecified classif ication, unspecified obesity type, unspecified whether serious comorbidity present; [address] Morbid obesity with BMI of 7 0 and over, adult; [place], [place] Other specified disorders of carbohydrate metabolism ; [address] Prediabetes [phone] Social History Tobacco Use Types Packs/Day Years Used Date Former Smoker Cigarettes 3 40 Quit: 10/08/19 11 Smokeless Tobacco: Never Used Alcohol Use Standard Drinks/Week Comments No 0 (1 standard drink = 0.6 oz pure alcoho l) Sex Assigned at Date Recorded Not on file documented as of this encounter Progress Notes Tisha Young MD - 09/10/2019 1:20 PM EST Hi, Ms. Masterson, It was a pleasure to meet you in the [facility]ness clinic recently. Your recent labs show: fasting blood sugar 100 with normal being up to 99. Thyroid test normal. Vitamin B12 level normal. Your hemoglobin A1c, which looks at average blood sugar over a few months, was improved at 5.6. Vitamin D level is very low at 12. I sent a prescription to your pharmacy for high dose vitamin D, 50,000 unitstwice weekly for 12 weeks. Please let me know if you have questions. Dr. Young documented in this encounter Plan of Treatment [...] google or use a book such as [employer] (available on [employer]) OR [employer] (if you're using a package, it will have calorie and protein info on the back) - The other thing to write down would be grams of protein - 1500 is a good starting point for a ca jeffrey goal documented as of this encounter Procedures Procedure Name Priority Date/Time Associated Diagnosis Comme nts HC VENIPUNCTURE Routine 09/10/2019 1:29 PM Obesity, unspecifie d Results for this EST classification, procedure ar e in unspecified obesity the resu lts type, unspecified section. whether serious comorbidity present CMP W/FASTING GLUCOSE Routine 09/10/2019 1:29 PM Morbid obesit y with Results for this EST BMI of 70 and over, procedur e are in adult the results section. HC VITAMIN D TOTAL-25 Routine 09/10/2019 1:29 PM Morbid obesit y with Results for this HYDROXY EST BMI of 70 and over, procedur e are in adult the results section. HC THYROID Routine 09/10/2019 1:29 PM Prediabetes Results for this STIMULATING HORMONE, EST Morbid obesity with procedure are in SERUM BMI of 70 and over, the resu lts adult section. HC HEMOGLOBIN A1C Routine 09/10/2019 1:29 PM Other specified R esults for this EST disorders of procedure are i n carbohydrate the results metabolism section. Morbid obesity with BMI of 70 and over, adult HC VITAMIN B12 SERUM Routine 09/10/2019 1:29 PM Morbid obesity with Results for this EST BMI of 70 and over, procedur e are in adult the results section. documented in this encounter Results Vitamin B12 (09/10/2019 1:29 PM EST) athologist Signature Vitamin B-12 450 232 - 1,245 [place] pg/mL [facility] Specimen Anatomical Collection Method Collection Time Receive d Time (Source) Location / / Volume Laterality Blood specimen 09/10/2019 1:29 PM 020 4:17 (specimen) EST PM EST Resulting Agency Comment Spec In Lab Tisha Young MD CHEMISTRY ORDERABLES Performing Organization Address City/Special Care [facility]/[place] [address] (ABNORMAL) Vitamin D, 25-Hydroxy (09/10/2019 1:29 PM EST) athologist Signature 25-OH Vit D 12 (L) 30 - 100 [place] Total ng/mL [facility] Comment: As of 2019, 25-hydroxyvitamin D kyler ting has moved from the [employer] to the [facility]. No substantial change in me asured values is expected. Specimen Anatomical Collection Method Collection Time Receive d Time (Source) Location / / Volume Laterality Blood specimen 09/10/2019 1:29 PM 020 4:17 (specimen) EST PM EST Resulting Agency Comment Spec In Lab Tisha Young MD CHEMISTRY ORDERABLES Performing Organization Address City/[facility]/[place] [address] TSH (09/10/2019 1:29 PM EST) athologist Signature TSH 1.38 0.27 - 4.20 [place] mcIU/mL [facility] Specimen Anatomical Collection Method Collection Time Receive d Time (Source) Location / / Volume Laterality Blood specimen 09/10/2019 1:29 PM 020 4:18 (specimen) EST PM EST Resulting Agency Comment Spec In Lab Tisha Young MD CHEMISTRY ORDERABLES Performing Organization Address City/[facility]/[place] [address] Hemoglobin A1c (09/10/2019 1:29 PM EST) athologist Signature Hemoglobin A1C 5.6 4.3 - 5.6 [facility] Comment: Reference Range: 4.3 [...] 36: Suppl. 1, S67-74 Est Avg Gluc 113 mg/dL [facility] Comment: eAG equivalents for HbA1c percentages: HbA1c(%) ?eAG(mg/dL) 6.0 ?126 6.5 ?140 7.0 ?154 7.5 ?169 8.0 ?183 8.5 ?197 9.0 ?212 9.5 ?226 10.0 ? 240 Limitations: The eAG calculation has not been validated on women, individuals below 18 years old and above 70 years old, and individuals with hemoglobinopathies. Additional resources are available on health system [facility] website. Morales BERNSTEIN, Rey J, Jose L R, et al. ??Tr anslating the A1C assay into estimated average glucose values. ??Diabetes Care 2008:31(8):6884-5454. Specimen Anatomical Collection Method Collection Time Receive d Time (Source) Location / / Volume Laterality Blood specimen 09/10/2019 1:29 PM 020 4:12 (specimen) EST PM EST Resulting Agency Comment Spec In Lab Tisha Young MD CHEMISTRY ORDERABLES Performing Organization Address City/State/[place] [address] (ABNORMAL) CMP w/fasting Glucose (09/10/2019 1:29 PM EST) P athologist Signature Glucose 100 (H) 65 - 99 [facility] Fasting mg/dL [facility] Comment: ?Fasting* Glucose Interpretive C [...] of Diabetes Mellitus, Position Statement from the [place] [employer]. ??Diabete s Care, Volume 33, Supplement 1, Aug 2009 BUN 17 8 - 18 mg/dL [facility] Creatinine 0.59 (L) 0.70 - 1.20 mg/dL [facility] Sodium 141 135 - 145 mmol/L [facility] Potassium 3.8 3.5 - 5.0 mmol/L [facility] Comment: Please note: ??Patients with WBC >100,00 0 may have falsely elevated Potassium levels. ??For accurate Potassium quantif ication in these patients send serum separator tube (gold top) for subsequent determinations. ??Contact the Clinical Chemistry Laboratory if there are any qu estions. Chloride 101 98 - 107 mmol/L [facility] CO2 28 22 - 31 mmol/L [facility] Anion Gap 12 5 - 15 mmol/L [facility] Calcium 9.7 8.5 - 10.5 mg/dL [facility] Total Protein 7.4 6.1 - 8.0 gm/dL [facility] Albumin 4.1 3.2 - 5.2 gm/dL [facility] AST 32 (H) 0 - 30 unit/L [facility] ALT 38 (H) 0 - 30 unit/L [facility] Alk Phos 74 35 - 105 unit/L [facility] Total Bilirubin 1.2 0.2 - 1.3 mg/dL [facility] Estimated GFR 98 >=60 mL/min/1.73 m?? [facility] Comment: The eGFR was calculated using the CKD-EP I equation. As with all creatinine based estimates of kidney function, eGFR values calculated with the CKD-EPI equation are not accurate in patients wi th acute kidney failure, extremes of body mass or the acutely ill. [email or web address]/[facility] IDABELnkf eGFR 113 >=60 mL/min/1.73 m?? [facility] Comment: The eGFR was calculated using the CKD-EP I equation. As with all creatinine based estimates of kidney function, eGFR values calculated with the CKD-EPI equation are not accurate in patients wi th acute kidney failure, extremes of body mass or the acutely ill. [email or web address]/[facility] IDABELnkf Specimen Anatomical Collection Method Collection Time Receive d Time (Source) Location / / Volume Laterality Blood specimen 09/10/2019 1:29 PM 020 4:18 (specimen) EST PM EST Resulting Agency Comment Spec In Lab Tisha Young MD CHEMISTRY ORDERABLES Performing Organization Address City/State/[place] [address] Biorepository Request (09/10/2019 1:29 PM EST) [facility] gist Method Time Signature Biorepository Sample in [facility] Specimen Anatomical Collection Method Collection Time Receive d Time (Source) Location / / Volume Laterality Blood specimen 09/10/2019 1:29 PM 020 9:23 (specimen) EST AM EST Resulting Agency Comment Spec In Lab Tisha Young MD CHEMISTRY ORDERABLES Performing Organization Address City/State/ZIP Code Phon e Number [place] [id number] documented in this encounter Visit Diagnoses Diagnosis Obesity, unspecified classification, uns pecified obesity type, unspecified whether serious comorbidity present Morbid obesity with BMI of 70 and over, adult Morbid obesity Other specified disorders of carbohydrat e metabolism Prediabetes Other abnormal glucose documented in this encounter Care Teams Virtual Customer Assistant Relationship Specialty Start Date End Date Alphonso [place] MD PCP - General Family Medicine 02/19/[address] [place] [address] documented as of this encounter
--- OUTSIDE RECORDS SUMMARY | 2022-03-05 02:17 | XMS_ITS | Encounter Summary ---
:1955 Author Organization [facility] [place] [address] Care Team Providers Name Role Phone Alphonso [place] MD Primary Care Provider [phone] Encounter Details Date Type Department Care Team Description 08/06/2019 Hospital Encounter XRay at [facility], Pain in right wrist [address]min Velasquez [address] [place] [address] [facility] [phone] [facility] [place], [place] [id number] Social History Tobacco Use Types Packs/Day Years [...] DELIVERY 2 L. 0 12/24/2014 SYSTEMS MISC ALBUTEROL INHL Inhale 2 puffs into 0 the lungs daily. buPROPion (WELLBUTRIN) Take 100 mg by mouth 2 0 100 mg Tablet times daily. busPIRone (BUSPAR) 5 mg Take 10 mg by mouth 3 0 1 Tablet times daily. potassium chloride Take 20 mEq by mouth 2 0 07/06 (MICRO-K) 10 mEq times daily. Capsule, Sustained Release clotrimazole (LOTRIMIN) 3 times daily as 0 2018 1 % Cream needed. fluticasone propionate 1 spray by Each Nare 0 06/2019 (FLONASE) 50 route daily as needed. mcg/actuation [place], 04/06 Patient states Suspension that she only takes this when needed NYSTOP Powder apply topically twice 0 02/20/2019 a day if needed triamcinolone (KENALOG) 2 times daily as 0 2018 0.1 % Cream needed. ipratropium-albuterol Take 3 mLs by 0 12/02/2016 (DUONEB) 0.5 mg-3 nebulization every 6 mg(2.5 mg base)/3 mL hours as needed. Solution for Nebulization INCRUSE ELLIPTA 62.5 INL 1 PUFF PO QD 0 9 08/13/2019 mcg/actuation Disk with Device metFORMIN (GLUCOPHAGE) 0 07/27/2019 500 mg Tablet furosemide (LASIX) 40 40 mg daily. 1 [...] Name Priority Date/Time Associated Diagnosis Comme nts XR WRIST 2 VIEWS Routine 08/06/2019 2:27 PM Pain in right wris t Results for this RIGHT EST procedure are i n the results section. documented in this encounter Results XR Wrist 2 views [...] below. ? Electronically signed by: Ron Galicia [facility] ([phone]), at 08/06/2019 3:46 PM Narrative 08/06/2019 3:46 [...] number below. Electronically signed by: Ron Galicia [facility] ([phone]), at 08/06/2019 3:46 PM Osmin Castañeda Jr., MD IMG DX ORDERABLES documented in this encounter Visit Diagnoses Diagnosis Pain in right wrist Pain in joint, forearm documented in this encounter Care Teams Centrifuge Separator Operator Relationship Specialty Start Date End Date Alphonso [place] MD PCP - General Family Medicine 02/19/[address] [place] [address] [address] [facility] [address] [place] [address] documented as of this encounter
--- OUTSIDE RECORDS SUMMARY | 2022-03-05 02:17 | XMS_ITS | Encounter Summary ---
:1955 Author Organization [facility] [place] [address] Care Team Providers Name Role Phone Alphonso [place] MD Primary Care Provider [phone] Encounter Details Date Type Department Care Team Description 08/13/2019 Notes Only Weight and Wellness at Joe Jacinto RN [address] [address] Social History Tobacco Use Types Packs/Day Years Used Date Former Smoker Cigarettes 3 40 Quit: 10/08/19 11 Smokeless Tobacco: Never Used Alcohol Use Standard Drinks/Week Comments No 0 (1 standard drink = 0.6 oz pure alcoho l) Sex Assigned at Date Recorded Not on file documented as of this encounter Progress Notes Joe Jacinto RN - 08/13/2019 2:02 PM EST Received request from [facility] provider to update medication list based on report from PCP. Thank you, Andi Jacinto RN documented in this encounter Plan of Treatment Not on filedocumented as of this encounter Visit Diagnoses Not on filedocumented in this encounter Care Teams Milk Processing Worker Relationship Specialty Start Date End Date Alphonso [place] MD PCP - General Family Medicine 02/19/[address] [place] [address] documented as of this encounter
--- OUTSIDE RECORDS SUMMARY | 2022-03-05 02:17 | XMS_ITS | Encounter Summary ---
:1955 Author Organization [facility] [place] [address] Care Team Providers Name Role Phone Alphonso Murphy MD Primary Care Provider [phone] Encounter Details Date Type Department Care Team Description 08/06/2019 Telephone Weight and Wellness at [facility] Macario Ebony Nelson [address] [place] [address] Social History Tobacco Use Types Packs/Day Years [...] on filedocumented in this encounter Care Teams Private Secretary Relationship Specialty Start Date End Date Alphonso Murphy MD PCP - General Family Medicine 02/19/[address] [place] [address] documented as of this encounter
--- OUTSIDE RECORDS SUMMARY | 2022-03-05 02:17 | XMS_ITS | Encounter Summary ---
:1955 Author Organization [facility] [place] [address] Care Team Providers Name Role Phone Alphonso Murphy MD Primary Care Provider [phone] Encounter Details Date Type Department Care Team Description 03/20/2019 Ancillary Procedure Radiology Library at Josué Murphy [facility] [address] [id number] [phone] Social History Tobacco Use Types Packs/Day Years [...] Associated Diagnosis Comme nts FILM LIBRARY Routine 03/20/2019 12:00 AM Results for this STORAGE ONLY DX EDT procedure ar e in WRIST the results section. documented in this encounter Results Film Library- Storage Only DX Wrist (03/20/2019 12:00 AM EDT) Specimen (Source) Anatomical Location Collection Method / Collectio n Time Received Time / Laterality Volume Narrative RAD - 07/02/2019 1:18 PM EST This exam is auto-finalizing. It's purpo se is for storage only. Alphonso Murphy MD IM FILM LIBRARY ORDERABLES Performing Organization Address City/State/ZIP Code Phon e Number [place], [place] documented in this encounter Visit Diagnoses Not on filedocumented in this encounter Care Teams Parts Finisher Relationship Specialty Start Date End Date Alphonso Murphy MD PCP - General Family Medicine 02/19/[address] [place] [address] documented as of this encounter
--- OUTSIDE RECORDS SUMMARY | 2022-03-05 02:17 | XMS_ITS | Encounter Summary ---
:1955 Author Organization [facility] [place] [address] Care Team Providers Name Role Phone Alphonso Murphy MD Primary Care Provider [phone] Reason for Visit Reason Comments Medication Refill Encounter Details Date Type Department Care Team Description 05/23/2019 Refill Hematology and Oncology at Tomás [place] [address] [place] [address] [phone] Social History Tobacco Use Types Packs/Day Years [...] on filedocumented in this encounter Care Teams Fermenter Wine Relationship Specialty Start Date End Date Alphonso Murphy MD PCP - General Family Medicine 02/19/[address] [place] [address] documented as of this encounter
--- OUTSIDE RECORDS SUMMARY | 2022-03-05 02:17 | XMS_ITS | Encounter Summary ---
:1955 Author Organization [facility] [place] [address] Care Team Providers Name Role Phone Alphonso Murphy MD Primary Care Provider [phone] Reason for Referral Consultation (Routine) - Closed Specialty Diagnoses / Procedures Referred By Contact Refer red To Contact Weight and Wellness Diagnoses Pulmonary hypertension Sunitha Reilly, [facility] Wellness SATELLITE TV TECHNICIAN [address] [place] [address] [place] [place] [address] Referral ID Status Reason Start Date Expiration Date Visits V isits Requested Authorized [id number] Closed Consult, 05/21/2019 05/20/2020 1 1 Test & Treat Reason for Visit Consultation (Routine) - Specialty Diagnoses / Procedures Referred By Contact Refer red To Contact Cardiology Diagnoses PAH (pulmonary arterial hypertension) with portal hypertension Alphonso Murphy MD D'Anna, Susan P, SATELLITE TV TECHNICIAN [address] [place], [place] [address] [place] [place] [address] Phone: Fax: Referral ID Status Reason Start Date Expiration Date Visits V isits Requested Authorized [id number] Consult, Test 03/21/2019 03/20/2020 6 6 & Treat PCP Updated and/or Approved Encounter Details Date Type Department Care Team Description 05/21/2019 Office Visit Cardiology at [facility] Tex Edwards MD [facility] DR CARDIOLOGY [place] [address] [facility] Sunitha Reilly, DEISY [facility] [address] CARDIOLOGY [place] [address] [place] [id number] Social History Tobacco Use Types Packs/Day Years Used Date Former Smoker Cigarettes 3 40 Quit: 10/08/19 11 Smokeless Tobacco: Never Used Alcohol Use Standard Drinks/Week Comments No 0 (1 standard drink = 0.6 oz pure alcoho l) Sex Assigned at Date Recorded Not on file documented as of this encounter Last Filed Vital Signs Vital Sign Reading Time Taken Comments Blood Pressure 130/80 05/21/2019 2:58 PM EDT Pulse 82 05/21/2019 2:58 PM EDT Temperature - - Respiratory Rate - - Oxygen Saturation 97% 05/21/2019 2:58 PM 3 l nasal c anula EDT Inhaled Oxygen Concentration - - Weight 191.9 kg (423 lb) 05/21/2019 2:58 PM EDT Height 161.3 cm (5' 3.5) 05/21/2019 2:58 PM EDT Body Mass Index 73.76 05/21/2019 2:58 PM EDT documented in this encounter Patient Instructions Patient InstructionsD'Sunitha Ayala APRN - 05/21/2019 3:00 PM EDT The pressure on the right side of the heart is mildly elevated and fortunately the right side of theheart is managing this pressure well. Our recommendations: ?? Consider weight loss surgery ?? Referral placed to weight and wellness center to assist with this process. ?? Keep oxygen levels > 90% No follow up scheduled at this time. documented in this encounter Progress Notes Tex Edwards MD - 05/21/2019 3:00 PM EDT Images from the original note were not included. CARDIOVASCULAR MEDICINE [place] [address] New Patient /Consultation Visit Subjective Identification Radha Masterson is a 64 y.o. patient of Alphonso Murphy MD with the following previously identified problems Patient Active Problem List Diagnosis Code ??? Obesity E66.9 ??? Pleural effusion on right J90 ??? Musculoskeletal chest pain R07.89 ??? Pulmonary hypertension I27.20 ??? Chronic heart failure with preserved ejection fraction I50.32 ??? DAVID (obstructive sleep apnea) G47.33 Present Illness We are asked to see this 64-year-old patient due to concern for elevated PASP on echocardiogram fromJuly 2018. She has well preserved biventricular function with PASP 45-50 mmHg. She reports chronic FRY particularly since she had her traumatic hemothorax in 2013. It took a while for her to recover from this and she had pulmonary involvement at that time who felt that her hypoxemia and FRY were likely related to obesity hypoventilation syndrome. PFTs did not support COPD. About 4-5 years ago she began to use oxygen-3 L during the day and 5 L at night with her CPAP. Over the last year or so she has noted increased shortness of breath with minimal exertion. Though she uses a scooter outside of her home she is able to get around her house with a rolling walker. She has a commode next to her bed and even moving from bed to commode she feels a bit short of breath. She has occasional chest pressure. There is no syncope or presyncope. Her weight has remained fairly stable and she has not noted significant fluid retention. Her last hospitalization was locally in November when she was hospitalized for pneumonia. Currently she goes to pulmonary rehab and is able to use the arm ergometer and recumbent bike. Oxygen levels often dipped to the high 80s but recovers when she cuts back on her activity. She tells us that she is being evaluated for a trilogy NIV device for nighttime. Regarding risk factors for pulmonary hypertension: She is high risk for COPD with a heavy smoking history. She uses her CPAP regularly with 5 L. There is no history of CTD. Throughout the notes there is some mention of PE however the lung issue was related to hemothorax and there is no evidence of support for PE. She has never been anticoagulated. She has no documented liver delete disease but would certainly be at risk for GARCIA cirrhosis. Review of Systems Review of Systems See HPI above for pertinent positives and negatives. All other ROS negative by system (including general, HEENT, pulmonary, gastrointestinal, genitourinary, musculoskeletal, endocrine, hematologic, extremity, skin, neurology, and psychiatric) with exceptions below. Social History Social History Social History Narrative Lives in [facility]. Daughter lives with her for now. Has 2 other sons. Another son earlier this year from a respiratory illness. Never . Quit smoking in 2009. No EtOH. Spends time with grandchildren. 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 Medications Current Outpatient Medications: ??? furosemide (LASIX) 40 mg Tablet, 80 [...] , Rfl: 0 Objective Physical Exam BP 130/80 Pulse 82 Ht 161.3 cm (5' 3.5) Wt (!) 191.9 kg (423 lb) SpO2 97% Comment: 3 l nasal canula BMI 73.76 kg/m?? , Body mass index is 73.76 kg/m??. General: Pleasant. Morbidly obese lady in NAD sitting in her scooter. Nasal O2 in place. Skin: Warm and dry. No visible rashes or lesions HEENT: Anicteric sclera. + xanthelasma Neck: JVP not visualized. No AJR. No carotid bruits. Chest: Lungs are clear to auscultation bilaterally Heart: Distant regular rate and rhythm. No obvious murmurs rubs or gallops. Abdomen: Obese. Nontender. Extremities: Large but no significant edema DRAW BENCH OPERATOR: Normal mentation. Psych: Appropriate affect. I personally reviewed the ECG which shows normal sinus rhythm at 80 bpm. Normal axis and QRS duration. No acute ST-T wave abnormalities. PH Relevant Test Date Comments LFTs, TAHMINA, HIV CT of chest 2014 no PE PFTs 2014 FVC 2.23 (68%). FEV1 1.77 (69%). DLCO 71% V/Q scan Left heart function 02/2019 LVEF 65% Evaluation for DAVID Uses CPAP Right heart cath Labs Lab Results Component Value Date NA 138 01/21/2017 K 3.8 01/21/2017 CL 96 (L) 01/21/2017 CO2 29 01/21/2017 BUN 10 01/21/2017 CREATININE 0.66 (L) 01/21/2017 GLUCOSE 92 01/21/2017 CALCIUM 8.5 01/21/2017 Assessment and Plan She has mild pulmonary hypertension documented on her echocardiogram. Fortunately her RV function iswell preserved. This is most likely WHO group 3 pulmonary hypertension due to hypoxemia and obesity hypoventilation syndrome. There may be some contribution from diastolic dysfunction as well. Pulmonary vasodilator therapy is not helpful for this group of patients. Treatment should be focusedon addressing underlying conditions (obesity, hypoxemia). We have recommended aggressive weight loss strategies and to that and have referred her to weight and wellness with the hope that she can initiate a path to weight loss surgery. Continue oxygen to maintain O2 sats greater than 90%. Follow-up in our clinic will not be scheduled but we are happy to see her in the future if necessary. Sunitha Reilly APRN Cardiology Staff I shared this visit with the Sunitha Reilly APRN. My role was to review the history, exam, and laboratory and imaging findings and to formulate the assessment and plan. The assessment and plan above incorporate my input and recommendations. I personally explained our impression and recommendations in addition to Sunitha's explanation. I agree that this is pulmonary hypertension secondary to chronic hypoxic lung disease. Tex Edwards MD MS [facility] Director, Pulmonary Hypertension Clinic cc: ?? Alphonso Murphy MD [address] [place], [place] [address]Y [facility] 1 / [facility] [id number] documented in this encounter Plan of Treatment Scheduled Referrals Name Type Priority Associated Diagnoses Order S chedule Referral to Weight Outpatient Referral Routine [facility] hypertension 05/21/2019 documented as of this encounter Procedures Procedure Name Priority Date/Time Associated Diagnosis Comme nts EKG 12-LEAD Routine 05/21/2019 3:55 PM Pulmonary hypertension Results for this EDT procedure are i n the results section. documented in this encounter Results EKG 12 Lead (05/21/2019 3:55 PM EDT) [facility] Method Time Signature Ventricular rate 80 BPM MUSE SYSTEM Atrial Rate 80 BPM MUSE SYSTEM P-R Interval 170 ms MUSE SYSTEM QRS Duration 88 ms MUSE SYSTEM Q-T Interval 402 ms MUSE SYSTEM QTC Calculated 463 ms MUSE SYSTEM (Bezet) Calculated P [place] 54 degrees MUSE SYSTEM Calculated R [place] 65 degrees MUSE SYSTEM Calculated T [place] 42 degrees MUSE SYSTEM INTERPRETATION Normal sinus rhythm MUSE SYSTEM Normal ECG When compared with ECG of 16-JAN-2017 23:16, QRS duration has decreased Confirmed by MD Verito, Shannon ([id number]) on 05/21/2019 8:1 0:14 PM Specimen Anatomical Collection Method Collection Time Receive d Time (Source) Location / / Volume Laterality 05/21/2019 3:55 PM 9 8:10 EDT PM EDT Sunitha Reilly APRN ECG ORDERABLES Performing Organization Address City/State/ZIP Code Phon e Number MUSE SYSTEM documented in this encounter Visit Diagnoses Diagnosis Pulmonary hypertension Other chronic pulmonary heart diseases documented in this encounter Care Teams Batting Machine Operator Relationship Specialty Start Date End Date Alphonso Murphy MD PCP - General Family Medicine 02/19/[address] [place] [address] documented as of this encounter
--- OUTSIDE RECORDS SUMMARY | 2022-03-05 02:17 | XMS_ITS | Encounter Summary ---
:1955 Author Organization [facility] [place] [address] Care Team Providers Name Role Phone Alphonso Murphy MD Primary Care Provider Encounter Details Date Type Department Care Team Description 08/13/2019 Orders Only Weight and Wellness at [place], [facility] [address] [place] [address] Social History Tobacco Use Types Packs/Day [...] on filedocumented in this encounter Care Teams Medical Records Coder Relationship Specialty Start Date End Date Alphonso Murphy MD PCP - General Family Medicine 02/19/[address] [place] [address] documented as of this encounter
--- OUTSIDE RECORDS SUMMARY | 2022-03-05 02:17 | XMS_ITS | Encounter Summary ---
:1955 Author Organization [facility] [place] [address] Care Team Providers Name Role Phone Alphonso Murphy MD Primary Care Provider [phone] Reason for Referral Consultation (Routine) - Closed Specialty Diagnoses / Procedures Referred By Contact Refer red To Contact Neurology Diagnoses Neuritis of right ulnar nerve Pain in right wrist Osmin Castañeda [facility] [place] [address] [place] [address] Referral ID Status Reason Start Date Expiration Date Visits V isits Requested Authorized [id number] Closed Consult & 08/06/2019 08/05/2020 1 1 Test Reason for Visit Reason Comments Establish Care R wrist pain DOI: 03/21/19 Consultation (Routine) - Closed Specialty Diagnoses / Procedures Referred By Contact Refer red To Contact Orthopaedics Diagnoses Pain in unspecified wrist Unilateral primary osteoarthritis, right knee Unilateral primary osteoarthritis, left knee Pain in right wrist Sprain of carpal joint of unspecified wrist, initial encounter Jose A Cabrera MD [facility] Orthopaedics [address] [place] [address] Referral ID Status Reason Start Date Expiration Date Visits V isits Requested Authorized [id number] Closed Consult, Test 07/03/2019 07/02/2020 1 1 [facility] PCP Updated and/or Approved Encounter Details Date Type Department Care Team Description 08/06/2019 Office Visit Orthopaedics at [facility] Maddy, Neuritis of right ulnar nerv e; [facility] Osmin Velasquez Jr., MD [place] in [place] [address] CENTER [phone] ORTHOPAEDIC SURGERY [place], [place] [address] Social History Tobacco Use Types [...] Time Taken Comments Blood Pressure 142/78 08/06/2019 1:30 PM EST Pulse 83 08/06/2019 1:30 PM EST Temperature - - Respiratory Rate - - Oxygen Saturation - - Inhaled Oxygen Concentration - - Weight 195 kg (430 lb) 08/06/2019 1:30 PM EST copied Height 162.6 cm (5' 4) 08/06/2019 1:30 PM EST cipied Body Mass Index 73.81 08/06/2019 1:30 PM EST documented in this encounter Progress Notes Osmin Castañeda Jr., MD - 08/06/2019 1:30 PM EST Radha Masterson 1955 [id number] 08/06/2019 HPI: Radha is 64 y.o. RIGHT hand dominant white female, who presents for RIGHT hand pain. The onset of symptoms was acute after she lunged forward from her wheelchair with a partial fall . The pain is localized to the volar surface of the wrist and radiates to the elbow. The patient notes considerable and constant neurosensory symptoms in the small finger. There is some pain at rest, occasional pain at night interfering with sleep, and primarily pain aggravated by activity. The patient complains of tenderness along the volar forearm and wrist and pain with any use. Takes nothing specific in the way of medication. Specific treatment and/or therapy to date include nothing related to the karen. No related injury. Interferes with ADLs and use of her motorized scooter. Past Medical History: Diagnosis Date ??? JODY [...] LEFT/AMAN LCCK/AMAN LPS/ANTIBIOTIC CEMENT ProcedureDate: 11/23/2005 Family History Problem Relation Age of Onset ??? Diabetes Mother ??? Diabetes Maternal Aunt ??? Diabetes Paternal Aunt ??? Diabetes Maternal Grandmother ??? Diabetes Paternal Grandmother Social History Socioeconomic History ??? Marital status: Single Spouse name: Not on file ??? Number of children: Not on file ??? Years of education: Not on file ??? Highest education level: Not on file Occupational History ??? Not on file Social Needs ??? Financial resource strain: Not on file ??? Food insecurity: Worry: Not on file Inability: Not on file ??? Transportation needs: Medical: Not on file Non-medical: Not on file Tobacco Use ??? Smoking status: Former Smoker Packs/day: 3.00 Years: 40.00 Pack years: 120.00 Types: Cigarettes Last attempt to quit: 10/08/2010 Years since quittin.8 ??? Smokeless tobacco: Never Used Substance and Sexual Activity ??? Alcohol use: No ??? Drug use: No ??? Sexual activity: Not Currently Lifestyle ??? Physical activity: Days per week: Not on file Minutes per session: Not on file ??? Stress: Not on file Relationships ??? Social connections: Talks on phone: Not on file Gets together: Not on file Attends lutheran service: Not on file Active member of club or organization: Not on file Attends meetings of clubs or organizations: Not on file Relationship status: Not on file ??? Intimate partner violence: Fear of current or ex partner: Not on file Emotionally abused: Not on file Physically abused: Not on file Forced sexual activity: Not on file Other Topics Concern ??? Not on file Social History Narrative [place] [facility] Daughter lives with her for now. Has 2 other sons. Another son earlier this year from a respiratory illness. Never . Quit smoking in 2009. No EtOH. Spends time with grandchildren. 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 Neurological: Negative Meds: Current Outpatient Medications on File Prior to Visit Medication Sig Dispense Refill ??? ALBUTEROL INHL Inhale into the lungs. ??? buPROPion (WELLBUTRIN) 100 mg Tablet Take by mouth. ??? busPIRone (BUSPAR) 5 mg Tablet ??? INCRUSE ELLIPTA 62.5 mcg/actuation Disk with Device INL 1 PUFF PO QD ??? metFORMIN (GLUCOPHAGE) 500 mg Tablet ??? potassium chloride (MICRO-K) 10 mEq Capsule, Sustained Release ??? clotrimazole (LOTRIMIN) 1 % Cream apply topically three times a day 0 ??? fluticasone propionate (FLONASE) 50 mcg/actuation [place], Suspension SHAKE LQ AND U 1 SPR IEN D ??? NYSTOP Powder apply topically twice a day if needed 0 ??? [DISCONTINUED] predniSONE (DELTASONE) 20 mg Tablet ??? furosemide (LASIX) 40 mg Tablet 80 [...] facility-administered medications on file prior to visit. Physical Exam: Blood pressure 142/78, pulse 83, height 162.6 cm (5' 4), weight (!) 195 kg (430 lb). Patient is ill-appearing, alert and oriented, accompanied by noone. She is seated in a wheelchair and is on oxygen. Breathing is labored at rest. She is morbidly obese. Range of motion Cervical spine; flex/extension, rotation, and lateral bending notable for reduced lateral bending ofthe neck, supination on the right limited to 30 degrees, and wrist ROM restricted globally to F/E 60/60 on right. Remainder upper limbs with normal ROM bilaterally. No palmar crepitus or flexor tenosynovitis. No triggering. Pain to palpation at volar right wrist, RIGHT much greater than LEFT. Crank test neg LEFT, neg RIGHT; Grind test neg LEFT, neg RIGHT. Flexion-axial loading with no subluxation and no pain RIGHT; no subluxation with no pain LEFT. Magaly's test neg. Wrist flexion test equivocal with pain on right. Tinel's suggestive at RIGHT wrist. Ulnar nerve positive Tinels on right at elbow. Motor strength 5/5 bilateral to manual resistance testing. Deep tendon reflexes 2+, symmetrical bilateral. Sensation intact bilateral to light touch. No skin lesions or stasis dermatitis. Imaging: Plain films of the wrist today are notable for absence of fractures or any meaningful degenerative disease. Active Problem List: Patient Active Problem List Diagnosis Code ??? Obesity E66.9 ??? Pleural effusion on right J90 ??? Musculoskeletal chest pain R07.89 ??? Pulmonary hypertension I27.20 ??? Chronic heart failure with preserved ejection fraction I50.32 ??? DAVID (obstructive sleep apnea) G47.33 Assessment: RIGHT hand/wrist pain with ulnar neuritis elbow and R/O median nerve contusion/CTS Plan: The nature of the problem and the individual situation was discussed at length with the patient. Consistent with treatment of the primary diagnosis, we have recommended neurologic consultation for NCV and EMG bilateral median and ulnar nerves at wrist and elbow. We will see her back thereafter for formulation of definitive treatment plan. Osmin Castañeda Jr, MD Department of Orthopaedics [facility] documented in this encounter Plan of Treatment Scheduled Referrals Name Type Priority Associated Diagnoses Order S chedule Referral to Outpatient Referral Routine Neuritis of right Ord ered: Neurology ulnar nerve 08/06/2019 Pain in right wrist documented as of this encounter Visit Diagnoses Diagnosis Neuritis of right ulnar nerve Pain in right wrist Pain in joint, forearm documented in this encounter Care Teams Burial Vault Deliverer And Installer Relationship Specialty Start Date End Date Alphonso Murphy MD PCP - General Family Medicine 02/19/[address] [place] [address] documented as of this encounter
--- OUTSIDE RECORDS SUMMARY | 2022-03-05 02:18 | XMS_ITS | Encounter Summary ---
:1955 Author Organization [employer] [facility] [place] [address] Care Team Providers Name Role Phone Sunitha Milligan MD Primary Care Provider Encounter Details Date Type Department Care Team Description 07/16/[address] [facility] [place] [facility] [place] Lung nodule [facility] Padmini Lozano MD [facility] [place] [address] [place] [address] Social History Tobacco Use Types Packs/Day Years Used Date Former Smoker Sex Assigned at Date Recorded Not on file documented as of this encounter Medications at Time of Discharge Medication Sig Dispensed Refills Start Date End Date acetaminophen-codeine 0 05/03/201401/2015 (TYLENOL #3) 300-30 mg Tablet furosemide (LASIX) 40 mg 0 05/15/2014 01/16/2017 Tablet metolazone (ZAROXOLYN) 2.5 0 4 01/16/2017 mg Tablet potassium chloride 0 12/21/20132016 (MICRO-K) 10 mEq Capsule, Sustained Release zolpidem (AMBIEN) 10 mg 0 04/04/2014 0 01/16/2017 Tablet gabapentin (NEURONTIN) 800 800 MG = 1 0 1 01/16/2017 mg tablet Tablet(s), PO, Q8H aspirin 325 mg tablet 325 MG, PO, Twice 0 011 01/16/2017 daily CITALOPRAM HYDROBROMIDE 40 MG = 1 0 08/26/2010 0 01/16/2017 (CITALOPRAM ORAL) Tablet(s), PO, Once daily albuterol-ipratropium 0 08/26/201011/2016 (COMBIVENT) 18-103 mcg/Actuation inhaler fluticasone-salmeterol 0 08/26/2010 (ADVAIR HFA) 115-21 mcg/Actuation inhaler buPROPion (WELLBUTRIN SR) 0 08/26/2010 01/16/2017 150 mg 12 hr tablet MOMETASONE FUROATE 0 08/26/20102016 (MOMETASONE NASL) nabumetone (RELAFEN) 750 750 MG = 1 0 08/26/2010 01/16/2017 mg tablet Tablet(s), PO, Twice daily documented as of this encounter Plan of Treatment Not on filedocumented as of this encounter Procedures Procedure Name Priority Date/Time Associated Diagnosis Comme nts CT CHEST WO Routine 07/16/2014 3:29 PM Lung nodule Results f or this CONTRAST (GENERIC) EST procedure are in the results section. documented in this encounter Results CT chest WO contrast (07/16/2014 3:29 PM EST) Anatomical Region Laterality Modality Chest Computed Tomography Specimen (Source) Anatomical Collection Method Collection Time Re ceived Time Location / / Volume Laterality 07/16/2014 3:29 PM EST Narrative 07/16/2014 3:[address] chest without contrast Clinical History right lung nodule 3 months follow up Technique 3.75 mm thick axial contiguous sections were obtained through the chest via helical acquisition from the beau to t he lung bases without intravenous contrast administration. Thin-section re constructions as well as coronal and sagittal reformatted images were generat ed. ?? Comparison 06/11/2014 and 06/20/2014. Findings Pulmonary parenchyma and pleura: Improve d right pleural effusion and atelectasis compared to free aspiration images of 06/20/2014 CT, but increased compared to the post aspiration images o f that CT, however effusion has not quite reaccumulated to the amount on the 06/11/2014 CT. No pleural effusion on the left. No right middle lobe pulmonary nodule is identified. In the paracardiac fat on the left, however, in the similar region there is a small lymph node, but unchanged. No new or enl arging pulmonary nodules are seen. Airways: The imaged airways are unremark able. Lymph nodes:The initial lymph nodes appe ar unchanged. Heart, pericardium, and great vessels:No pericardial effusion. Other mediastinal structures: No signifi cant interval findings. Upper abdomen:No significant interval fi ndings. Skeletal structures:No significant inter orestes findings. Impression Right middle lobe nodule is not identifi ed on this examination. Status post right pleural fluid drainage on 06/20/2014, with partial reaccumulation compared to 06/11/2014. Procedure Note Tosha Covarrubias MD - 07/16/2014Formatt ing of this note might be different from the original. Examination CT chest without contrast Clinical History right lung nodule 3 months follow up Technique 3.75 mm thick axial contiguous sections were obtained through the chest via helical acquisition from the beau to t he lung bases without intravenous contrast administration. Thin-section re constructions as well as coronal and sagittal reformatted images were generat ed. Comparison 06/11/2014 and 06/20/2014. Findings Pulmonary parenchyma and pleura: Improve d right pleural effusion and atelectasis compared to free aspiration images of 06/20/2014 CT, but increased compared to the post aspiration images o f that CT, however effusion has not quite reaccumulated to the amount on the 06/11/2014 CT. No pleural effusion on the left. No right middle lobe pulmonary nodule is identified. In the paracardiac fat on the left, however, in the similar region there is a small lymph node, but unchanged. No new or enl arging pulmonary nodules are seen. Airways: The imaged airways are unremark able. Lymph nodes:The initial lymph nodes appe ar unchanged. Heart, pericardium, and great vessels:No pericardial effusion. Other mediastinal structures: No signifi cant interval findings. Upper abdomen:No significant interval fi ndings. Skeletal structures:No significant inter orestes findings. Impression Right middle lobe nodule is not identifi ed on this examination. Status post right pleural fluid drainage on 06/20/2014, with partial reaccumulation compared to 06/11/2014. Padmini Lozano MD IMG CT ORDERABLES documented in this encounter Visit Diagnoses Diagnosis Lung nodule Solitary pulmonary nodule documented in this encounter Care Teams Account Planner Relationship Specialty Start Date End Date Sunitha Milligan MD PCP - General 07/07/10 02/18/16 [address] [place] [address] documented as of this encounter
--- OUTSIDE RECORDS SUMMARY | 2022-03-05 02:18 | XMS_ITS | Encounter Summary ---
:1955 Author Organization [facility] [address] Care Team Providers Name Role Phone Sunitha Milligan MD Primary Care Provider Encounter Details Date Type Department Care Team Description 06/11/2014 Orders Only Radiology Mendy Talbot, Pleural effusion [facility] (Primary Dx) [place] [address] DIAGNOSTIC RADIOLOGY [place], [place] [address] Social History Tobacco Use Types Packs/Day Years Used Date Former Smoker Sex Assigned at Date Recorded Not on file documented as of this encounter Plan of Treatment Not on filedocumented as of this encounter Results CT chest WO contrast (06/11/2014 3:37 PM EDT) Anatomical Region Laterality Modality Chest Computed Tomography Specimen (Source) Anatomical Collection Method Collection Time Re ceived Time Location / / Volume Laterality 06/11/2014 3:37 PM EDT Narrative 06/11/2014 4:[address] Chest Without Contrast Clinical History 59 yo female with RIGHT chest trauma / f all in March, persistent RIGHT pleural effusion seen on CT in Apr, smaller on US today, interval change on CT? Comparison April 30, 2014. Technique Noncontrast CT of the chest. Findings Moderate amount of right-sided pleural f luid, which is only slightly decreased in comparison to the prior exam. The den sity remains slightly higher than water measuring about 20 Hounsfield units. Per sistent mild linear atelectases. No new airspace disease. Central and segmental airways are widely patent. Stable nodular enlargement of the thyroi d gland which contains coarse calcifications. No pathological lymph no de enlargement. Upper portions of the abdomen included o n this exam show stable findings. Skeleton: No acute abnormality. Impression Moderate size right-sided pleural effusi on, slightly decreased in comparison to prior exam. Nodular enlargement of the thyroid gland with coarse calcifications; unchanged dating back to August 2012. Procedure Note Valentine Valle MD - [address] Chest Without Contrast Clinical History 59 yo female with RIGHT chest trauma / f all in March, persistent RIGHT pleural effusion seen on CT in Apr, smaller on US today, interval change on CT? Comparison April 30, 2014. Technique Noncontrast CT of the chest. Findings Moderate amount of right-sided pleural f luid, which is only slightly decreased in comparison to the prior exam. The den sity remains slightly higher than water measuring about 20 Hounsfield units. Per sistent mild linear atelectases. No new airspace disease. Central and segmental airways are widely patent. Stable nodular enlargement of the thyroi d gland which contains coarse calcifications. No pathological lymph no de enlargement. Upper portions of the abdomen included o n this exam show stable findings. Skeleton: No acute abnormality. Impression Moderate size right-sided pleural effusi on, slightly decreased in comparison to prior exam. Nodular enlargement of the thyroid gland with coarse calcifications; unchanged dating back to August 2012. Brandan Kelly MD IMG CT ORDERABLES documented in this encounter Visit Diagnoses Diagnosis Pleural effusion - Primary Unspecified pleural effusion Pleural effusion Unspecified pleural effusion documented in this encounter Care Teams Shipping Lead Person Relationship Specialty Start Date End Date Sunitha Milligan MD PCP - General 07/07/10 02/18/[address] [place] [address] documented as of this encounter
--- OUTSIDE RECORDS SUMMARY | 2022-03-05 02:18 | XMS_ITS | Encounter Summary ---
:1955 Author Organization [facility] [address] Care Team Providers Name Role Phone Sunitha Milligan MD Primary Care Provider Encounter Details Date Type Department Care Team Description 06/11/2014 Hospital Encounter Laboratory Luke Christianson, Pleural effusion on [facility] [id number] DIAGNOSTIC [phone] [place] [address] Social History Tobacco Use Types Packs/Day Years [...] Name Priority Date/Time Associated Diagnosis Comme nts PLATELET COUNT STAT 06/11/2014 11:26 AM Pleural effusion on Results for this EDT right procedure are i n the results section . documented in this encounter Results Platelet count (06/11/2014 11:26 AM EDT) P athologist Signature Platelets 251 145 - 370 [facility] x10(3)/[facility] Specimen Anatomical Collection Method Collection Time Receive d Time (Source) Location / / Volume Laterality Blood specimen 06/11/2014 11:26 4 (specimen) AM EDT 11:28 AM EDT Resulting Agency Comment Spec In Lab Luke Christianson MD HEMATOLOGY ORDERABLES Performing Organization Address City/State/ZIP [place] [address] [facility] documented in this encounter Visit Diagnoses Diagnosis Pleural effusion on right Unspecified pleural effusion documented in this encounter Care Teams Sports Cartoonist Relationship Specialty Start Date End Date Sunitha Milligan MD PCP - General 07/07/10 02/18/16 [address] [place] [address] documented as of this encounter
--- OUTSIDE RECORDS SUMMARY | 2022-03-05 02:18 | XMS_ITS | Encounter Summary ---
:1955 Author Organization [facility] [place] [address] Care Team Providers Name Role Phone Sunitha Trotter MD Primary Care Provider Encounter Details Date Type Department Care Team Description 06/12/2014 Orders Only Radiology Amy Arroyo MD [facility] [place] [address] [place] [phone] DIAGNOSTIC RADIOLOGY [phone] [place], [place] [address] (Wo rk) Social History Tobacco Use Types Packs/Day Years Used Date Former Smoker Sex Assigned at Date Recorded Not on file documented as of this encounter Progress Notes Amy Arroyo MD - 06/12/2014 3:54 PM EDT PRE-PROCEDURE VIR NOTE: Referring Physician: Dr Lozano PCP: SUNITHA TROTTER MD Planned Procedure: Right thoracentesis Procedure Indication: Recurrent effusion Presenting Diagnosis/ Complaint: Radha Masterson is a 59 y.o. obese female with right pleural effusion after a fall, previously treated with chest tube in March. Effusion has recurred. Drainage attemptedin IR; unsuccessful due to patient body habitus. Per Dr Lozano's note 05/21: The fluid should be sent for bacterial cx ( both anerobic, aerobic and actinomyces ), AFB and fungal cx, CYTOLOGY, cell counts and diff, LDH, protein, amylase, pH, glucose and blood should be drawn at the same time for comparison Past Medical/Surgical History Patient Active Problem List Diagnosis Code ??? 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 CIS - Entered not Verified T999.0 ??? CIS - L knee increasing pain T999.0 ??? Obesity 278.00 ??? Pleural effusion on right 511.9 No past medical history on file. Past Surgical History Procedure Date ??? Created by interface COLONOSCOPY (ENDO) Procedure Date: 08/23/2007 ??? Created by interface DEBRIDEMENT TISSUE,MUSCLE,BONE / LEFT/KNEE Procedure Date: 08/05/2005 ??? Created by interface DEBRIDEMENT TISSUE,MUSCLE,BONE / LEFT/KNEE Procedure Date: 04/15/2005 ??? Created by interface DEBRIDEMENT TISSUE,MUSCLE,BONE / LEFT/KNEE/VAC DRESSING APPL. Procedure Date: 12/17/2005 ??? Created by interface IRRIGATION & JERROD.SUBCU & MUSCLE (OPEN) / LEFT/LEG Procedure Date: 04/18/2005 ??? Created by interface IRRIGATION & DEBRIDEMENT SKIN, FULL THICKNESS / RIGHT/KNEE Procedure Date: 07/20/2008 ??? Created by interface STAB PHLEBECTOMY NEHAL VEINS 1 EXTREMITY 10-20 INCISIONS / LEFT Procedure Date: 10/01/2004 ??? Created by interface TOTAL KNEE ARTHROPLASTY / LEFT/AMAN LPS Procedure Date: 03/29/2005 ??? Created by interface TOTAL KNEE ARTHROPLASTY / RIGHT Procedure Date: 05/07/2008 ??? Created by interface TOTAL KNEE PROSTHESIS,REMOVAL Procedure Date: 08/05/2005 ??? Created by interface TOTAL KNEE PROSTHESIS,REMOVAL / LEFT Procedure Date: 04/15/2005 ??? Created by interface TOTAL KNEE PROSTHESIS,REMOVAL / LEFT/INTERSPACE SPACER Procedure Date: 02/02/2007 ??? Created by interface TOTAL KNEE PROSTHESIS,REMOVAL / LEFT/IRRIGATION & DEBRIDEMENT/INTERSPACE SPACER Procedure Date:05/25/2005 ??? Created by interface TOTAL KNEE REVISION ARTHROPLASTY, ONE COMPONENT / LEFT Procedure Date: 04/18/2005 ??? Created by interface TOTAL KNEE REVISION ARTHROPLASTY,COMPLETE Procedure Date: 03/16/2007 ??? Created by interface TOTAL KNEE REVISION ARTHROPLASTY,COMPLETE / LEFT/AMAN LCCK/AMAN LPS/ANTIBIOTIC CEMENT ProcedureDate: 11/23/2005 Medications: Current Outpatient Prescriptions on File Prior to Visit Medication Sig Dispense Refill ??? acetaminophen-codeine (TYLENOL #3) 300-30 mg Tablet ??? furosemide (LASIX) 40 mg Tablet ??? metolazone (ZAROXOLYN) 2.5 mg Tablet ??? potassium chloride (MICRO-K) 10 mEq Capsule, Sustained Release ??? zolpidem (AMBIEN) 10 mg Tablet ??? gabapentin (NEURONTIN) 800 mg tablet 800 MG = 1 Tablet(s), PO, Q8H ??? aspirin 325 mg tablet 325 MG, PO, Twice daily ??? CITALOPRAM HYDROBROMIDE (CITALOPRAM ORAL) 40 MG = 1 Tablet(s), PO, Once daily ??? albuterol-ipratropium (COMBIVENT) 18-103 mcg/Actuation inhaler ??? fluticasone-salmeterol (ADVAIR HFA) 115-21 mcg/Actuation inhaler ??? buPROPion (WELLBUTRIN SR) 150 mg 12 hr tablet ??? MOMETASONE FUROATE (MOMETASONE NASL) ??? nabumetone (RELAFEN) 750 mg tablet 750 MG = 1 Tablet(s), PO, Twice daily Current Facility-Administered Medications on File Prior to Visit Medication Dose Route Frequency Provider Last Rate Last Dose ??? [DISCONTINUED] sodium chloride 0.9 % flush 5 mL 5 mL Intravenous Q12H Mendy Talbot PA ??? [DISCONTINUED] sodium chloride 0.9% infusion 75 mL/hr Intravenous Continuous Mendy Talbot PA 75 mL/hr at 06/11/14 1400 Allergies: Iodinated contrast media - iv dye; Iodine-iodine containing; Morphine; and Oxycodone Social History and Habits: History Social History ??? Marital Status: Single Spouse Name: N/A Number of Children: N/A ??? Years of Education: N/A Occupational History ??? Not on file. Social History Main Topics ??? Smoking status: Former Smoker ??? Smokeless tobacco: Not on file ??? Alcohol Use: Not on file ??? Drug Use: Not on file ??? Sexually Active: Not on file Other Topics Concern ??? Not on file Social History Narrative ??? No narrative on file Significant Family History: No family history on file. Physical Exam: Pending Labs: Lab Results Component Value Date WBC 7.2 12/18/2013 HCT 42.2 12/18/2013 PLATELET 251 06/11/2014 BUN 17 12/18/2013 CREATININE 0.66* 12/18/2013 PROT 6.8 06/11/2014 Prior relevant imaging: CT scan in [facility] 06/11/14 shows moderate right effusion Assessment/Plan: *Send fluid for labs as above* Patient Position: At discretion of packing and stamping machine operator Biopsy/drain access site: RIGHT pleural fluid Medications to discontinue (and days): Aspirin x 3 days Labs: [obtain per CT protocol] General anesthesia required: [no] documented in this encounter Plan of Treatment Not on filedocumented as of this encounter Visit Diagnoses Not on filedocumented in this encounter Care Teams Shoe Folder Relationship Specialty Start Date End Date Sunitha Trotter MD PCP - General 07/07/10 02/18/16 [address] [place] [address] documented as of this encounter
--- OUTSIDE RECORDS SUMMARY | 2022-03-05 02:18 | XMS_ITS | Encounter Summary ---
:1955 Author Organization [facility] [place] [address] Care Team Providers Name Role Phone Sunitha Milligan MD Primary Care Provider Encounter Details Date Type Department Care Team Description 06/11/[address] [place] [facility] [place] [address] Social History Tobacco Use Types Packs/Day [...] Diagnosis Comme nts CT CHEST WO Routine 06/11/2014 3:37 PM Pleural effusion Resul ts for this CONTRAST (GENERIC) EDT procedure are in the results section. documented [...] RIGHT pleural effusion seen on CT in Sept, smaller on US today, interval change on [...] this encounter Visit Diagnoses Diagnosis Pleural effusion Unspecified pleural effusion documented in this encounter Care Teams Cashier Gambling Relationship Specialty Start Date End Date Sunitha Milligan MD PCP - General 07/07/10 02/18/[address] [place] [address] documented as of this encounter
--- OUTSIDE RECORDS SUMMARY | 2022-03-05 02:18 | XMS_ITS | Encounter Summary ---
:1955 Author Organization [facility] [place] [address] Care Team Providers Name Role Phone Sunitha Milligan MD Primary Care Provider Encounter Details Date Type Department Care Team Description 06/11/2014 Orders Only Radiology Mendy Talbot, Pleural effusion [facility] (Primary Dx) [place] [address] [address] [phone] DIAGNOSTIC RADIOLOGY [place], [place] [address] Social History Tobacco Use Types Packs/Day Years Used Date Former Smoker Sex Assigned at Date Recorded Not on file documented as of this encounter Plan of Treatment Not on filedocumented as of this encounter Visit Diagnoses Diagnosis Pleural effusion - Primary Unspecified pleural effusion documented in this encounter Care Teams Structural Steel Erection Supervisor Relationship Specialty Start Date End Date Sunitha Milligan MD PCP - General 07/07/10 02/18/16 [address] [place], [place] [address] documented as of this encounter
--- OUTSIDE RECORDS SUMMARY | 2022-03-05 02:18 | XMS_ITS | Encounter Summary ---
:1955 Author Organization [facility] [place] [address] Care Team Providers Name Role Phone Sunitha Milligan MD Primary Care Provider Encounter Details Date Type Department Care Team Description 11/08/2014 Hospital Encounter [place] [facility] (dyspnea on [facility] exertion) [place] [address] Social History Tobacco Use Types Packs/Day Years Used Date Former Smoker 3 40 Quit: 10/08/19 11 Sex Assigned at Date Recorded Not on file documented as of this encounter Medications at Time of Discharge Medication Sig Dispensed Refills Start Date End Date furosemide (LASIX) 40 mg 0 05/15/2014 01/16/2017 [...] Twice daily documented as of this encounter Procedure Notes Nakul Banegas MD - 11/11/2014 9:53 PM EDTAssociated Order(s): PULMONARY FUNCTION TEST Spirometry shows no airflow obstruction but reduced FVC, FEV1. Normal total lung capacity, with increased residual volume. Diffusion capacity is low. Suggestive of airflow obstruction, but air-trapping in the presence of normal FEV1/FVC suggests neuromuscular weakness. documented in this encounter Plan of Treatment Not on filedocumented as of this encounter Procedures Procedure Name Priority Date/Time Associated Diagnosis Comme nts PULMONARY FUNCTION Routine 11/11/2014 9:55 PM FRY (dyspnea on Results for this TEST EDT exertion) procedure are i n the results section. documented in this encounter Results Pulmonary Function Testing (11/11/2014 9:55 PM EDT) Narrative Nakul Banegas MD - 11/11/2014 9:55 PM EDT Nakul Banegas MD ? 11/11/2014 ??9:55 PM Spirometry shows no airflow obstruction but reduced FVC, FEV1. Normal total lung capacity, with increas ed residual volume. Diffusion capacity is low. Suggestive of airflow obstruction, but a ir-trapping in the presence of normal FEV1/FVC suggests gui romuscular weakness. Padmini Lozano MD PFT ORDERABLES documented in this encounter Visit Diagnoses Diagnosis FRY (dyspnea on exertion) Other dyspnea and respiratory abnormalit y documented in this encounter Care Teams Aviation Safety Equipment Technician Relationship Specialty Start Date End Date Sunitha Milligan MD PCP - General 07/07/10 02/18/16 [address] [place] [address] documented as of this encounter
--- OUTSIDE RECORDS SUMMARY | 2022-03-05 02:18 | XMS_ITS | Encounter Summary ---
:1955 Author Organization [facility] [place] [address] Care Team Providers Name Role Phone Sunitha Milligan MD Primary Care Provider Reason for Referral Consultation (Routine) - Complete - Unable to Contact Patient Specialty Diagnoses / Procedures Referred By Contact Refer red To Contact Pain Management Diagnoses Other chest pain Padmini Lozano MD [facility] PULMONARY [address] [phone] Fax: Referral ID Status Reason Start Expiration Visits Visits Date Date Requested Authorized [id number] Complete - Consult, 11/08/2014 11/08/2015 3 3 Unable to Test & Contact Treat Patient Reason for Visit Reason Comments Follow-up Encounter Details Date Type Department Care Team Description 11/08/2014 Follow-Up Pulmonology at [facility] PFT ROOM 1 Other chest pain; [facility] Padmini Rico MD [facility] [place] [address] [place] [address] Social History Tobacco Use Types Packs/Day Years Used Date Former Smoker 3 40 Quit: 10/08/19 11 Sex Assigned at Date Recorded Not on file documented as of this encounter Last Filed Vital Signs Vital Sign Reading Time Taken Comments Blood Pressure 125/54 11/08/2014 4:19 PM EDT Pulse 82 11/08/2014 4:19 PM EDT Temperature - - Respiratory Rate 24 11/08/2014 4:19 PM EDT Oxygen Saturation 95% 11/08/2014 4:19 PM EDT Inhaled Oxygen Concentration - - Weight 173.7 kg (383 lb) 11/08/2014 4:19 PM EDT Height 161.3 cm (5' 3.5) 11/08/2014 4:19 PM EDT Body Mass Index 66.78 11/08/2014 4:19 PM EDT documented in this encounter Patient Instructions Patient InstructionsPadmini Lozano MD - 11/08/2014 5:08 PM EDT THINGS TO REMEMBER FROM YOUR CLINIC VISIT TODAY ( ) We will see you around 4 weeks. You will receive an appointment mail and call. ( ) We will see you around 8 weeks. You will receive an appointment mail and call. ( ) We will see you around 3 months You will receive an appointment mail and call. (x ) We will see you around 6 months You will receive an appointment mail and call. ( ) We will see you around 12 months You will receive an appointment mail and call. Please notify us of cancellation at least 24 hours prior to the visit. ( sooner the better, so that we can have somebody else to come in. Thank you). Things to Do BEFORE LEAVING THE BUILDING Follow-up in pulmonary clinic will be on an as-needed basis. Please call the clinic at to schedule a follow-up appointment. If this box is checked, you need to get a chest x-ray in radiology TODAY If this box is checked, you need to get blood tests drawn in laboratory TODAY If this box is checked, you will receive a call to schedule radiology tests. If this box is checked, you will receive a call to schedule laboratory tests. If this box is checked, you need to hand picker a prescription at your pharmacy. Important Things You Talked About With Your Doctor You will hear from pain service regarding appointment. Communication With Your Local Health Care Providers The [facility] medical record system allows for electronic communication of my note from today's office visit to your local health care provider. Problems with this process infrequently occur.If your health care provider needs a copy of my note, please refer him or her to our office at . documented in this encounter Progress Notes Padmini Lozano MD - 11/08/2014 8:31 AM EDT CLINIC Follow up Note Last visit:09/20/2014 I have personally interviewed and examined the patient, reviewed history, radiographic studies( if any) and laboratory data(if any). Pulmonary Problems: -Posttraumatic hemothorax after mechanical fall and persistent effusion, resolved -persistent chest wall pain -chronic dyspnea. H/o COPD ( no PFT) -DAVID, morbid obesity with BMI of 70 HPI: This a 59 y.o. female, returned to the clinic. She had another cxr on 09/20/2014, which showed NO evidence of pleural effusion and improvement of lung expansion. She was seen in the general surgery clinic. They did not identify anatomical reason for the pain. They suspected nerve damage from the injury and recommended pain consult. Today, she returned to have PFT to confirm the diagnosis of COPD, which she carries long time. She is on Advair. PFT showed, however, no evidence of obstructive ventilatory defect. Instead, it did showair trapping and reduced diffusing capacity. No restriction. Of note, her past CT showed no significant emphysematous changes. She feels better compared to a month ago. Breathing a little easier. 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 Her chest wall pain persisting, though not worse. No new pulmonary symptoms. PMHx: Patient Active Problem List Diagnosis Code ??? 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 CIS - Entered not Verified T999.0 ??? CIS - L knee increasing pain T999.0 ??? Obesity 278.00 ??? Pleural effusion on right 511.9 ??? Musculoskeletal chest pain 786.59 Allergy: Allergies Allergen Reactions ??? Iodinated Contrast Media - Iv Dye ??? Iodine And Iodide Containing Products CIS - Rash, CIS - Rash ??? Morphine Rash ??? Oxycodone Rash Medications: Outpatient Prescriptions Marked as Taking for the 11/08/14 encounter (Follow-Up) with Padmini Lozano MD Medication Sig Dispense Refill ??? furosemide (LASIX) 40 mg Tablet ??? [...] Tablet(s), PO, Twice daily Current Facility-Administered Medications for the 11/08/14 encounter (Follow-Up) with Padmini Lozano MD Medication Dose Route Frequency Provider Last Rate Last Dose ??? sodium chloride 0.9 % flush 5 mL 5 mL Intravenous Q12H Juan Hanks MD 5 mL at 06/20/14 1200 ROS: [x ]exertional Shortness of breath [ ] Abdominal pain or bloating [ ] Frequent or chronic cough [ ] Weight gain or loss [ ] Coughing up blood [ ] Chest pain [ ] Nose, sinus, mouth, throat problems [ ] Palpitations or flutter [ ] Fevers or severe chills [ ] Swelling of hands feet ankles [ ] Night sweats [ ] Convulsions or seizures [ ] Enlarged or swollen lymph glands [ ] Frequent or severe headache [ ] Skin disease or rash [ ] Fainting or loss of consciousness [ ] Easy bruising or bleeding [ ] Extreme fatigue or weakness [ ] Significant joint pains or stiffness [ ] Depression [ ] Changes in bowel habits [ ] Changes in sleep pattern [ ] Changes in appetite [x ] other:right chest wall tenderness. [ ] all negative Vitals and Physical Exam: BP 125/54 Pulse 82 Resp 24 Ht 161.3 cm (5' 3.5) Wt 173.728 kg (383 lb) BMI 66.77 kg/m2 SpO2 95% Gen: appears better today. No distress. More alert with more energy. HEENT: Pupils equal and round. EOMI, Moist oral mucosal membrane wto lesions , eyes wto injection orexudates. No stridor Neck: No cervical, supraclavicular LAP. Chest: CTA without wheezing/rhonchi/crackles Symmetric excursion. Right lat post chest tender to palpate. Cor: RRR, S1S2, No MRG. Abd: S/ND/NT obese Extrem: no C/C 1+edema. Neuro: no focal deficits Diagnostic studies: -CXR: 08/01/2014 EXAMINATION: CHEST ROUTINE 2 VIEWS CLINICAL HISTORY: hemothorax in Apr. then persistent effusion eversince. had tap in Jun, had CT on Jul 16. would like to check how much/fast re-accumulate if any. TECHNIQUE: AP and lateral sitting semiupright chest radiograph COMPARISON: CT chest July 16, 2014 and chest radiograph December 18, 2013 FINDINGS: There is no pneumothorax or large pleural effusion but a small residual right pleural effusion cannot be completely excluded due to the large body habitus and shallow degree of inflation. There are low lung volumes with no new focal airspace opacity. The mediastinal silhouette, hilar and pulmonary vasculature are unchanged. No interval osseous findings. IMPRESSION IMPRESSION: No definite pleural effusion or other acute pulmonary abnormality 09/20/2014 EXAMINATION: CHEST ROUTINE 2 VIEWS CLINICAL HISTORY: h/o persistent pleural effusion after hemothorax in 03/2014. last cxr 08/01/14. 4 weeks f/u. thanks TECHNIQUE: Frontal and lateral views of the chest COMPARISON: Chest x-ray 08/01/2014 FINDINGS: There are low lung volumes bilaterally. There is mild atelectatic changes in the right lower lobe. The cardiac mediastinal silhouette is unchanged. There are no pleural effusions or pneumothorax present. IMPRESSION IMPRESSION: No evidence for pleural effusions or other acute cardiac pulmonary findings. Low lung volumes bilaterally. -CT: 04/30/2014 CT Chest for Pulmonary Embolus With Contrast Clinical History dyspnea Hemorrhagic plural effusion Comparison CT scan chest 03/22/2014. Technique CTA of the chest with contrast. 95 mL Omnipaque 350. Thin axial, sagittal and coronal maximal intensity projections were generated. Findings Evaluation of the pulmonary arteries is somewhat limited secondary to timing of the contrast bullous and patient body habitus however, no large central pulmonary artery filling defects are identified. Small segmental and subsegmental pulmonary emboli cannot be completely excluded. The right ventricle and intraventricular septum are normal in appearance. No pericardial effusion. Again seen is a large right effusion with associated compressive atelectasis. This is unchanged to slightly improved in comparison with the prior CT scan. Small 8 mm ill-defined nodular opacity in the right middle lobe (series 4, image 42) is indeterminate. The left lung remains clear. No focal consolidations. Large heterogeneous calcified thyroid nodularity, left greater than right is grossly unchanged. No mediastinal, hilar or axillary lymphadenopathy. Limited evaluation of the upper abdominal organs are unchanged. Degenerative changes of the thoracic spine without suspicious osseous lesions. Impression 1. Limited evaluation of the pulmonary arteries however no large central pulmonary embolism is identified. 2. Large right pleural effusion is stable to slightly improved in comparison with the prior CT scan. 3. Small ill-defined nodular opacity in the right middle lobe is indeterminate. Attention on follow up; consider CT follow up in 3 months. 07/16/2014 CT chest without contrast Clinical History right lung nodule 3 months follow up Technique 3.75 mm thick axial contiguous sections were obtained through the chest via helical acquisition from the beau to the lung bases without intravenous contrast administration. Thin-section reconstructions as well as coronal and sagittal reformatted images were generated. Comparison 06/11/2014 and 06/20/2014. Findings Pulmonary parenchyma and pleura: Improved right pleural effusion and atelectasis compared to free aspiration images of 06/20/2014 CT, but increased compared to the post aspiration images of that CT, however effusion has not quite reaccumulated to the amount on the 06/11/2014 CT. No pleural effusion on the left. No right middle lobe pulmonary nodule is identified. In the paracardiac fat on the left, however, in the similar region there is a small lymph node, but unchanged. No new or enlarging pulmonary nodules are seen. Airways: The imaged airways are unremarkable. Lymph nodes:The initial lymph nodes appear unchanged. Heart, pericardium, and great vessels:No pericardial effusion. Other mediastinal structures: No significant interval findings. Upper abdomen:No significant interval findings. Skeletal structures:No significant interval findings. Impression Right middle lobe nodule is not identified on this examination. Status post right pleural fluid drainage on 06/20/2014, with partial reaccumulation compared to 06/11/2014. PFTs date FVC FEV1 FEV/FVC VC TLC RV RV/TLC DsbHb SpO2 11/08/2014 2.33 68 1.77 69 79 71 89 123 137 15.27 71 95 -ECHO: 11/08/2014 SUMMARY: 1. Technically very difficult study, even with contrast imaging. 2. The left ventricular chamber size is normal. There is mild septal hypertrophy of the left ventricle. There is normal global left ventricular systolic function. Ejection fraction is estimated to be 65%. There are no obvious wall motion abnormalities. 3. The right ventricle is not well visualized. The right ventricle is probably normal in size. Right ventricular global systolic function is probably normal. Pulmonary artery hypertension could not be assessed due to inadequate tricuspid regurgitation jet. 4. See remainder of report for additional findings. -Serology: -PET: -Biopsy: -Other: Labs Lab Results Component Value Date WBC 7.2 12/18/2013 RBC 4.74 12/18/2013 HGB 13.9 12/18/2013 HCT 42.2 12/18/2013 MCV 89.0 12/18/2013 MCH 29.3 12/18/2013 MCHC 32.9 12/18/2013 PLATELET 251 06/11/2014 RDWCV 14.0 12/18/2013 Summary: -Posttraumatic hemothorax after mechanical fall and persistent effusion, resolved -persistent chest wall pain due to mechanical injury -chronic dyspnea. But no evidence of COPD -DAVID, morbid obesity with BMI of 70, CPAP Impression/recommendation: -continue lung expansion training. -DAVID and PAP therapy. Day time hypoxemia likely due to hypoventilation/atelectasis. -NO evidence of obstructive ventilatory defect( thus no COPD) on PFT. CT did not show significant emphysema neither. I advised her to hold off Advair and use Combivent respimat as necessary. -ECHO was technically limited. No TR ject to estimate PASP. LV and RV were normal however, and I think advanced/severe pulmonary hypertension is unlikely. -no evidence of recurrence of effusion by chest exam. Will continue to follow clinically. CXR on thenext visit ( in 6 months) -evaluated in the surgery clinic. No anatomical reason found. Referral to pain management ( regarding chest wall pain, as recommended by surgery team). -We discussed on her PFT and ECHO result in detail today. -f/u in 6 months or sooner ( if sx changes). The above recommendation was discussed with the patient in detail, then all questions were answered.I advised the patient to call us back for any questions, concerns or changes in the interim. I spent more than 50% of this 40 minute visit in counseling the patient, reviewing charts/records/labs/tests, or discussion with other health care providers. documented in this encounter Plan of Treatment Scheduled Referrals Name Type Priority Associated Diagnoses Order S chedule Referral to Pain Outpatient Referral Routine Other chest pain Ordered: Clinic 11/08/2014 documented as of this encounter Visit Diagnoses Diagnosis Other chest pain Pleural effusion Unspecified pleural effusion documented in this encounter Care Teams Clinical Account Executive Relationship Specialty Start Date End Date Sunitha Milligan MD PCP - General 07/07/10 02/18/16 [address] [place] [address] documented as of this encounter
--- OUTSIDE RECORDS SUMMARY | 2022-03-05 02:18 | XMS_ITS | Encounter Summary ---
:1955 Author Organization [facility] [address] Care Team Providers Name Role Phone Sunitha Trotter MD Primary Care Provider Encounter Details Date Type Department Care Team Description 06/11/2014 Hospital Encounter Radiology at [facility], DR VICTOR Pleural effusion on right; [facility] Padmini Lozano MD [facility] [address] [place] [address] Social History Tobacco Use Types Packs/Day Years Used Date Former Smoker Sex Assigned at Date Recorded Not on file documented as of this encounter Last Filed Vital Signs Vital Sign Reading Time Taken Comments Blood Pressure 130/106 06/11/2014 3:15 PM EDT Pulse 91 06/11/2014 3:15 PM EDT Temperature 36.3 ??C (97.4 ??F) 06/11/2014 2:25 PM EDT Respiratory Rate 20 06/11/2014 3:15 PM EDT Oxygen Saturation 96% 06/11/2014 3:15 PM EDT Inhaled Oxygen Concentration - - Weight 182.3 kg (402 lb) 06/11/2014 3:09 PM EDT Height - - Body Mass Index 70.09 05/21/2014 11:09 AM EDT documented in this encounter Discharge Instructions Discharge InstructionsEmy Rowan RN - 06/11/2014 3:14 PM EDT 1. You may have received medication before and/or during your procedure, which affects judgment and reaction time. 2. Do not drive, operate machinery, drink alchololic beverages, or make important decisions for 24 hours. 3. Be careful on stairs, as you may be unsteady on your feet. 4. You may eat a regular diet as tolerated. 5. Do not smoke if you are alone. 6. IV site- slight redness or tenderness is normal, you can use warm compresses. If tenderness and redness increases or foul drainage occours, please contact your M.D. documented in this encounter Medications at Time [...] Twice daily documented as of this encounter Progress Notes Mendy Talbot, INESSA - 06/10/2014 6:15 AM EDT Images from the original note were not included. PRE-PROCEDURE VIR NOTE Date of : 1955 Age: 59 y.o. PCP: SUNITHA TROTTER MD Referring Physician (if different): Marta Indication: Persistent RIGHT pleural effusion of unknown etiology Planned Procedure: dx / tx RIGHT thoracentesis Chief Complaint/Diagnosis: 59 yo morbidly obese woman found to have right pleural effusion after fall and right chest injury. Referred to [facility] for chest tube placement on 03/24/14 [address] returned to [facility]. Effusion seen on recent CT scan and patient referred to Pulm for eval. There are no fluid studies in eDH since the patient was being treated at an OSH. Dx / TX thoracentesis requested. Patient had a chest tube placed by IR on 03/24/14. Pertinent Past Medical/Surgical History: Patient Active Problem List Diagnosis Code ??? 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 CIS - Entered not Verified T999.0 ??? CIS - L knee increasing pain T999.0 ??? Obesity 278.00 ??? Pleural effusion on right 511.9 Allergies Allergen Reactions ??? Iodinated Contrast Media - Iv Dye ??? Iodine-Iodine Containing CIS - Rash, CIS - Rash Current Outpatient Prescriptions on File Prior to Encounter Medication Sig Dispense Refill ??? acetaminophen-codeine (TYLENOL [...] MG = 1 Tablet(s), PO, Twice daily Pertinent ROS: as per HPI Pertinent Family History: non contributory Social History: n/a Labs: Lab Results Component Value Date WBC 7.2 12/18/2013 HCT 42.2 12/18/2013 PLATELET 261 12/18/2013 BUN 17 12/18/2013 No results found for this basename: alkphos, ast, albumin, bilidir, bilitot, alt, Imaging: Assessment / Plan: RIGHT dx / tx thoracentesis Medications to discontinue: none Prophylactic antibiotic: none Planned access site / position: RIGHT hemithorax Marilou Werner RN - 06/07/2014 4:09 PM EDT [facility] N[facility] DATAB[facility] Name: CYN MASTERSON Date of : 1955 AGE 59 y.o. Address: [address] [address] (home) Mobile: No relevant phone numbers on file. Referring Provider: Padmini Lozano Reason for Visit: US guided drainage of right pleural effusion ( diag and therapeutic) Allergies Allergen Reactions ??? Iodinated Contrast Media - Iv Dye ??? Iodine-Iodine Containing CIS - Rash, CIS - Rash Pertinent PMH: Patient Active Problem List Diagnosis Code ??? 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 CIS - Entered not Verified T999.0 ??? CIS - L knee increasing pain T999.0 ??? Obesity 278.00 ??? Pleural effusion on right 511.9 No past medical history on file. Pertinent PSH: Past Surgical History Procedure Date ??? Created [...] / LEFT/AMAN LCCK/AMAN LPS/ANTIBIOTIC CEMENT ProcedureDate: 11/23/2005 Date/Procedure Comments: 03/24/14 Right Chest Tube fent 250mcg 06/11/2014: thoracentesis not performed, US then sent to CT Fentanyl 150 mcg IV, albuterol neb treatment Laboratory Results: No results found for this basename: inr No results found for this basename: PT, PTT Lab Results Component Value Date BUN 17 12/18/2013 Lab Results Component Value Date CREATININE 0.66* 12/18/2013 Lab Results Component Value Date K 3.9 12/18/2013 Lab Results Component Value Date PLATELET 261 12/18/2013 Medications: Prior to Admission medications Medication Sig Start Date End Date Taking? Authorizing Provider acetaminophen-codeine (TYLENOL #3) 300-30 mg Tablet 05/03/14 ProviderSumanth MD furosemide (LASIX) 40 mg Tablet 05/15/14 ProviderSumanth MD metolazone (ZAROXOLYN) 2.5 mg Tablet 05/15/14 ProviderSumanth MD potassium chloride (MICRO-K) 10 mEq Capsule, Sustained Release 12/21/13 ProviderSumanth MD zolpidem (AMBIEN) 10 mg Tablet 04/04/14 ProviderSumanth MD gabapentin (NEURONTIN) 800 mg tablet 800 MG = 1 Tablet(s), PO, Q8H 08/26/10 aspirin 325 mg tablet 325 MG, PO, Twice daily 08/26/10 CITALOPRAM HYDROBROMIDE (CITALOPRAM ORAL) 40 MG = 1 Tablet(s), PO, Once daily 08/26/10 albuterol-ipratropium (COMBIVENT) 18-103 mcg/Actuation inhaler 08/26/10 fluticasone-salmeterol (ADVAIR HFA) 115-21 mcg/Actuation inhaler 08/26/10 buPROPion (WELLBUTRIN SR) 150 mg 12 hr tablet 08/26/10 MOMETASONE FUROATE (MOMETASONE NASL) 08/26/10 nabumetone (RELAFEN) 750 mg tablet 750 MG = 1 Tablet(s), PO, Twice daily 08/26/10 For outpatient procedures: I have informed this patient that they require a automobile drivers to drive them home after this procedure. In the absence of a automobile drivers, IR will not be able to perform this procedure andwill need to reschedule. Pt verbalized understanding of these instructions during the pre-procedure e ducation via phone. (initials) Pt has informed caller that blood thinner was stopped on per MD order. documented in this encounter Procedure Notes Mendy Talbot PA - 06/11/2014 2:59 PM EDTProcedure(s): PRG US CHEST REAL TIME W/IMAGE DOCUMENTATION VIR Procedure Note A# [id number] Indication: 59 yo morbidly obese woman found to have right pleural effusion after fall and right chest injury. Referred to [facility] for chest tube placement on 03/24/14 and later returned to [facility]. Effusion seen on recent CT scan and patient referred to Pulm for eval. There are no fluid studies in eDH sincethe patient was being treated at an OSH. Dx / TX thoracentesis requested. Technique: US evaluation of the RIGHT pleural space shows minimal fluid. Due to her body habitus theamount of fluid is difficult to determine and attempting to access this small volume would carry considerable risk. Impression: Small RIGHT pleural effusion Plan: Discussed with Pulm. Will obtain Chest CT. If only minimal fluid the thoracentesis will be canceled. If there is a moderate amount of fluid we will reschedule her for thoracentesis under CT guidance. CT of chest ordered. Images obtained by Mendy Talbot PA-C and Dr. Brandan Kelly Attending: Leticia CT scan shows moderate RIGHT pleural effusion Will order CT guided thoracentesis for a future appointment documented in this encounter Miscellaneous Notes Miscellaneous - Provider, Scanning - 06/13/2014 12:00 AM EDT documented in this encounter Plan of Treatment Not on filedocumented as of this encounter Procedures Procedure Name Priority Date/Time Associated Diagnosis Comme nts IR CHEST TUBE Routine 06/11/2014 2:49 PM Pleural effusion Resu lts for this PLACEMENT EDT procedure are i n the results section. documented in this encounter Results IR chest drainage procedure (06/11/2014 2:49 PM EDT) Anatomical Region Laterality Modality Chest X-Ray Angiography Specimen (Source) Anatomical Collection Method Collection Time Re ceived Time Location / / Volume Laterality 06/11/2014 2:49 PM EDT Narrative 06/12/2014 8:07 AM EDT ? ; ? Procedures ?; ?? {CR} ? ; ? 1. PRG ?? US CHEST REAL TIME [79976 (CPT)] ?; ?? {CR} ? ; ?? {CR} ? ; ? VIR Proced ure Note ?A# ?? [id number] ?Indication: ?? 59 yo morbidly obese woman found to have right ?? pleural effusion after fall and right chest injury. Referred to [facility] for ?? chest tube placement on 03/24/14 and later returned to [facility]. Effusion seen on ?? recent CT scan and patient referred to Pulm for eval. There are no fluid paresh dies in eDH ?? since the patient was being treated at an OSH. Dx / ?? TX thor acentesis requested. ?Technique: ?? US evaluation of the RIGHT pleural space sh ows minimal fluid. Due to her body ?? habitus the amount of fluid is difficult to determine and attempting to ?? access this small volume would carry con siderable risk. ?Impression: ?? Small RIGHT pleural effusion ?Plan: ?? Discussed with Pulm. Will obtain Chest CT. If only ?? minimal fluid the thoracentes is will be canceled. ?? If there is a moderate amount of fluid we will resched ule her for thoracentesis under CT guidance. ?CT ?? of chest ordered. ?Images ?? obtained by Mendy Talbot PA-C and Dr. Brandan Kelly ?Attending: ?? Leticia ?; ?? {CR} ?? Procedure Note Brandan Kelly MD - 06/12/2014Formattin g of this note might be different from the original. ; Procedures ; {CR} ; 1. PRG US CHEST REAL TIME [25832 (CPT)] ; {CR} ; {CR} ; VIR Procedure Note A# [id number] Indicat ion: 59 yo morbidly obese woman found to have right pleural effusion after fall and right chest injury. Referred to [facility] for chest tube placement on 03/24/14 and later returned to [facility]. Effusion seen on recent CT scan and patient referred to Pulm for eval. There are no fluid paresh dies in eDH since the patient was being treated at an OSH. Dx / TX thorace ntesis requested. Technique: US evaluation of the RIGHT pleural space sh ows minimal fluid. Due to her body habitus the amount of fluid is difficult to determine and attempting to access this small volume would carry con siderable risk. Impression: Small RIGHT pleural effusion Plan: Discussed w neo Pulm. Will obtain Chest CT. If only minimal fluid the thoracentesis will be canceled. If there is a moderate amount of fluid we will resched ule her for thoracentesis under CT guidance. CT of chest ordered. Images ob tained by Mendy Talbot PA-C and Dr. Brandan Kelly Attending: Leonor lucio ; {CR} Padmini Lozano MD IMG IR ORDERABLES Platelet count (06/11/2014 11:26 AM EDT) P athologist Signature Platelets 251 145 - 370 CERNER x10(3)/mcL [facility] Specimen Anatomical Collection Method Collection Time Receive d Time (Source) Location / / Volume Laterality Blood specimen 06/11/2014 11:26 4 (specimen) AM EDT 11:28 AM EDT Resulting Agency Comment Spec In Lab Luke Christianson MD HEMATOLOGY ORDERABLES Performing Organization Address City/State/ZIP Code Phon e Number [place] [id number] [facility] documented in this encounter Visit Diagnoses Diagnosis Pleural effusion on right Unspecified pleural effusion Pleural effusion Unspecified pleural effusion documented in this encounter Administered Medications Inactive Administered Medications - up to 3 most recent administrations Medication Order MAR Action Action Date Dose Rate Site albuterol (PROVENTIL) nebulizer Given 06/11/2014 2:00 PM EDT 2.5 mg solution 2.5 mg 2.5 mg, Nebulization, ONCE, 1 dose, On Tue06/11/14 at 1415, Routine fentaNYL 50mcg/mL injection Given 06/11/2014 2:25 PM EDT 50 mcg 25-50 mcg, Intravenous, EVERY 5 MIN PRN, Starting on Tue06/11/14 at 1307, Until Tue06/11/14 at 1505, Pain, per unit protocol, Angio/IR (Intra-Procedure), Routine Given 06/11/2014 2:20 PM EDT 50 mcg Given 06/11/2014 2:15 PM EDT 50 mcg sodium chloride 0.9% infusion New Bag 06/11/2014 2:00 PM EDT 75 mL/hr 75 mL/hr 75 mL/hr, Intravenous, CONTINUOUS, Starting on Tue06/11/14 at 1330, Until Tue06/12/14 at 0232, Day of Surgery (Day of Procedure) documented in this encounter Care Teams Project Management Instructor Relationship Specialty Start Date End Date Sunitha Trotter MD PCP - General 07/07/10 02/18/16 [address] [place] [address] documented as of this encounter
--- OUTSIDE RECORDS SUMMARY | 2022-03-05 02:18 | XMS_ITS | Encounter Summary ---
:1955 Author Organization [place] [address] Care Team Providers Name Role Phone Sunitha Milligan MD Primary Care Provider Reason for Referral Surgical (Routine) - Closed Specialty Diagnoses / Procedures Referred By Contact Refer red To Contact Thoracic Surgery Diagnoses Chronic chest pain Hemothorax Michele Eastman MD [facility] Thoracic Surg [address] [place] [address] [place] [address] [place] [address] Fax: Referral ID Status Reason Start Date Expiration Date Visits V isits Requested Authorized [id number] Closed Specialty 09/20/2014 09/20/2015 1 1 Service Requested Reason for Visit Reason Comments Follow-up Encounter Details Date Type Department Care Team Description 09/20/2014 Follow-Up Pulmonology at [facility] Michele Eastman DOE (dyspnea on exertion); [facility] Chronic chest pain; [facility] [place] [place] [address] PULMONARY MEDICI [place], [place] [address] (Wo rk) Social History Tobacco Use Types Packs/Day Years Used Date Former Smoker Sex Assigned at Date Recorded Not on file documented as of this encounter Last Filed Vital Signs Vital Sign Reading Time Taken Comments Blood Pressure 149/72 09/20/2014 1:14 PM EST Pulse 86 09/20/2014 1:14 PM EST Temperature - - Respiratory Rate 22 09/20/2014 1:14 PM EST Oxygen Saturation 98% 09/20/2014 1:14 PM EST Inhaled Oxygen Concentration - - Weight - - Height - - Body Mass Index - - documented in this encounter Patient Instructions Patient InstructionsMichele Eastman MD - 09/20/2014 2:06 PM EST THINGS TO REMEMBER FROM YOUR CLINIC VISIT TODAY ( ) We will see you around 4 weeks. You will receive an appointment mail and call. (x ) We will see you around 8 weeks. You will receive an appointment mail and call. ( ) We will see you around 3 months You will receive an appointment mail and call. ( ) We will see you around 6 [...] this box is checked, you need to order picker/assembler a prescription at your pharmacy. Important Things You Talked About With Your Doctor I will refer you to thoracic surgeon. They will call you. Communication With Your Local Health Care Providers The [facility] medical record system allows for electronic communication of my note from today's office visit to your local health care provider. Problems with this process infrequently occur.If your health care provider needs a copy of my note, please refer him or her to our office at . documented in this encounter Progress Notes Michele Eastman MD - 09/17/2014 4:43 PM EST CLINIC Follow up Note Last visit: 05/21/2014 I have personally interviewed and examined the patient, reviewed history, radiographic studies( if any) and laboratory data(if any). Pulmonary Problems: -Posttraumatic hemothorax after mechanical fall -Persistent pleural effusion -Persistent right chest tenderness -h/o COPD -DAVID -morbid obesity with BMI of 70 HPI: This a 59 y.o. female, presented to follow up the above problems. On June 20, 2014, she had the CT-guided thoracentesis. The fluid was negative for infectious etiology tested. Unfortunately, despite it was requested, cytology was not sent with unclear reason. She continued to have chest tenderness and mild dyspnea. We repeated non- contrast CT scan on 07/16/2014. Effusion has reaccumulated to some extent since the time after thoracentesis, however not to the degree seen in 03/2014. The RML nodule previously seen in 04/2014 was not seen this time. We obtained chest x-ray on August 01, which showed no definite pleural effusion or lung lesions. We have repeated cxr today and it shows better aeration in right lung with no obvious sings of re-accumulation of the effusion. Quote from the report FINDINGS: There are low lung volumes bilaterally. There is mild atelectatic changes in the right lower lobe. The cardiac mediastinal silhouette is unchanged. There are no pleural effusions or pneumothorax present. IMPRESSION: No evidence for pleural effusions or other acute cardiac pulmonary findings. Low lung volumes bilaterally. However, she report today that she continues to have right chest tenderness and dyspnea. She has been on 2L/min supplemental O2 since the injury in the last summer. Her SpO2 on 2L/min O2 was 98% today.She has DAVID and satates she has been compliant. PMHx: Patient Active Problem List Diagnosis Code ??? 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 CIS - Entered not Verified T999.0 ??? CIS - L knee increasing pain T999.0 ??? Obesity 278.00 ??? Pleural effusion on right 511.9 Allergy: Allergies Allergen Reactions ??? Iodinated Contrast Media - Iv Dye ??? Iodine And Iodide Containing Products CIS - Rash, CIS - Rash ??? Morphine Rash ??? Oxycodone Rash Medications: Outpatient Prescriptions Marked as Taking for the 09/20/14 encounter (Follow-Up) with Michele Eastman MD Medication Sig Dispense Refill ??? furosemide [...] Twice daily Current Facility-Administered Medications for the 09/20/14 encounter (Follow-Up) with Michele Eastman MD Medication Dose Route Frequency Provider Last Rate Last Dose ??? sodium chloride 0.9 % flush 5 mL 5 mL Intravenous Q12H Juna Hanks MD 5 mL at 06/20/14 1200 ROS: [x ] Shortness of breath [ ] Abdominal pain or bloating [ ] Frequent or chronic cough [ ] Weight gain or loss [ ] Coughing up blood [x ] Chest pain ( tenderness ) [ ] Nose, sinus, mouth, throat problems [...] sleep pattern [ ] Changes in appetite [ ] other: [ ] all negative Vitals and Physical Exam: BP 149/72 Pulse 86 Resp 22 Ht Wt SpO2 98% Gen: anxious but not in distress. HEENT: EOMI, eyes wto injection or exudates. No stridor Neck: No cervical, supraclavicular LAP. Chest: diminished b/l but CTA without wheezing/rhonchi/crackles Symmetric excursion. Tender to palpate on right back. Cor: distant but RRR, S1S2, I don't appreciate MRG. Abd: obese. No pain. Extrem: no C/C no pitting edema. Neuro: no focal deficits Diagnostic studies: -CXR: 08/01/2014 EXAMINATION: CHEST ROUTINE 2 VIEWS CLINICAL HISTORY: hemothorax in Sept. then persistent effusion eversince. had tap in [...] pleural effusion or other acute pulmonary abnormality -CT: 04/30/2014 CT Chest for Pulmonary Embolus [...] FEV/FVC VC TLC RV RV/TLC DsbHb SpO2 -ECHO: -Serology: -PET: -Biopsy: -Other: Labs Lab Results Component Value Date WBC 7.2 12/18/2013 RBC 4.74 12/18/2013 HGB 13.9 12/18/2013 HCT 42.2 12/18/2013 MCV 89.0 12/18/2013 MCH 29.3 12/18/2013 MCHC 32.9 12/18/2013 PLATELET 251 06/11/2014 RDWCV 14.0 12/18/2013 Summary: -Posttraumatic hemothorax after mechanical fall -Persistent pleural effusion -Persistent right chest tenderness -h/o COPD -DAVID -morbid obesity with BMI of 70 Impression/recommendation: -Pleural effusion: no evidence of re-accumlation by CXR. I can not rule out small effusion but it appears to continue improving. Admittedly we have not had cytology done to screen malignant effusion. However, the story appears to be quite consistent with trauma induced hemothorax and prolonged effusion. The sudden onset is not quite suggestive for malignant effusion. She had CT-PE in April, whichwas not a good quality study, but negative at least for large central pulmonary emboli. -At this time I don't have a good explanation for chest tenderness. Her right posterior chest is chronically very tender to palpate and I am not clear the etiology. I will ask CT surgeon to make an opinion. -She continues to be dyspneic as well. She says this has started after the mechanical fall/hospitalization. Even she has been carrying COPD dx and is morbidly obese with extreme body habitus BMI of 70,she says her breathing was not this bad. I will order PFT ( to confirm COPD ) and ECHO ( to r/o pulmonary hypertension). If it shows PH, will either repeat CT-PE or request Va/Vq scan. She will continue advair. The above recommendation was discussed with the patient in detail, then all questions were answered.I advised the patient to call us back for any questions, concerns or changes in the interim. I spent more than 50% of this 40 minute visit in counseling the patient, reviewing charts/records/labs/tests, or discussion with other health care providers. documented in this encounter Miscellaneous Notes Addendum Note - Michele Eastman MD - 09/30/2014 8:22 AM EST Addended by: MICHELE EASTMAN on: 09/30/2014 08:22 AM Modules accepted: Orders documented in this encounter Plan of Treatment Scheduled Referrals Name Type Priority Associated Order Schedule Diagnoses Referral to Outpatient Referral Routine Chronic ches t pain Ordered: Cardiothoracic Surgery Hemothorax 09/20 documented as of this encounter Results Pulmonary Function Testing (11/11/2014 [...] of normal FEV1/FVC suggests gui romuscular weakness. Michele Eastman MD PFT ORDERABLES Echocardiogram Transthoracic(Leb) (11/08/2014 3:55 PM EDT) P athologist Signature EF 65 [facility] SYSTEM Specimen (Source) Anatomical Location Collection Method / Collectio n Time Received Time / Laterality Volume 11/08/2014 Narrative HEARTLAB SYSTEM - 11/08/2014 4:24 PM EDT Procedure: ? Transthoracic Echocardiogram Patient: ? YOUNG CYN A ? (Age): 1955(59) Med Rec#: ?[id number] ? Sex: ?F ? Site Loc: ?[facility] ? Ht / Wt: ??161(cm)/175(kg) Pt. Loc: ? Echo Lab ? BSA: ?2.8 Study Date: ?11/08/2014 ? Pt. Type: Outpatient Tape: ? Referring: Michele Eastman Business Intelligence Etl Developer: Rosemarie Degroot Diagnosis: ??Dyspnea (786.09) CPT Code(s): ??Echo Full (00367), ??Spec tral Doppler (86197), ??Color Doppler (85238), ??Optison (53160WL), Indication(s):Rhythm: HR ?BP ?153/73 ?? SUMMARY: 1. Technically very difficult study, johnny n with contrast imaging. 2. The left ventricular chamber size is normal. ??There is mild septal hypertrophy of the left ventricle. ??The re is normal global left ventricular systolic function. ??Ejectio n fraction is estimated to be 65%. ??There are no obvious wall motion abnormalities. 3. The right ventricle is not well visua lized. ??The right ventricle is probably normal in size. ??Right ventric ular global systolic function is probably normal. ??Pulmonary artery hype rtension could not be assessed due to inadequate tricuspid regurgitatio n jet. 4. See remainder of report for additiona l findings. FINDINGS: Study Quality ?Technically limited Left Ventricle ?The left ventricular chamber size is normal. ?There is mild septal hypertrophy o f the left ventricle. ?There is normal global left ventri cular systolic function. ??Ejection fraction is estimated to be 65%. ?Left sided filling pressure could not be assessed by Doppler. Left Atrium ?The left atrium is probably normal in size. Right Ventricle ?The right ventricle is not well vi sualized. ?The right ventricle is probably no rmal in size. ?Right ventricular global systolic function is probably normal. ?Pulmonary artery hypertension coul d not be assessed due to inadequate tricuspid regurgitation jet. Right Atrium ?The right atrium is not well visua lized. Aortic Valve ?The aortic valve is not well visua lized. ?There is no evidence of aortic orestes ve stenosis.by apical Doppler ?There is no evidence of aortic reg urgitation. Mitral Valve ?The mitral valve is not well visua lized. ?There is trace mitral regurgitatio n present. Tricuspid Valve ?The tricuspid valve is not well vi sualized. ?There is trace tricuspid regurgita tion present. Pulmonic Valve ?The pulmonic valve is not well vis ualized. Pericardium ?The pericardium appears normal and there is no evidence of a pericardial effusion. Aorta ?The aortic root is normal in size. ?The ascending aorta is normal in s ize. Venous ?The inferior vena cava is poorly v isualized. Misc ?Technically difficult study. ?See remainder of report for additi onal findings. ?Two-dimensional echo, spectral Dop pler and color Doppler performed. ?Definity contrast (one 1.5 ml vial )was used to enhance endocardial definition. Excess contrast was discarde d. Wall Motion: Segment Name ?Rest ? Base-Anteroseptal ?? Normal ? Base-Anterior ? Not Seen ? Base-Anterolateral ??Not Seen ? Base-Posterolateral Not Seen ? Base-Inferior ? Normal ? Base-Inferoseptal ?? Not Seen ? Mid-Anteroseptal ?Normal ? Mid-Anterior ?Normal ? Mid-Anterolateral ?? Normal ? Mid-Posterolateral ??Normal ? Mid-Inferior ?Normal ? Mid-Inferoseptal ?Normal ? Etta-Septal ? Normal ? Etta-Anterior ? Normal ? Etta-Lateral ?Normal ? Etta-Inferior ? Normal ? Etta-Tip ?Normal ? Chambers ?Value ?Units (Range) ? IVSd 2D ? 1.4 ?cm ? LVIDd 2D ?4.8 ?cm ? PWd 2D ?1.1 ?cm ? LVIDs 2D ?3.4 ?cm ? LVFS 2D ? 29 ? % ? LA area ? 23.3 ? cm2 (<21) ? Ao root ? 2.9 ?cm (2.1 to 3.6) ? Asc Ao ?3.1 ?cm (2 to 3.5) ? Mitral Valve ?Value ?Units (Range) ? E peak ?1.08 ? m/sec ? E/A ratio ? 1.1 ?ratio ? MVDT ?217 ?msec ? E1 ?0.1 ?m/sec ? E/E1 ?10.8 ? ratio ? Tricuspid/Pulmonic Valves ?Value ?Units (Range) ? TR peak jaylon ? 2.3 ?m/sec ? This report has been electronically sign ed by: _ Jorge Mckeon. ? 11/08/2014 16:2 4:02 Images reviewed and interpretation verif ied [facility] Cardiac Ultrasound Laboratory Procedure Note Jorge Mckeon MD - 11/08/2014Format ting of this note might be different from the original. Procedure: Transthoracic Echocardiogram Patient: JOHAN CASTANEDA(Age): [birth year](59) Med Rec#: [id number] Sex: F Site Loc: [facility] Ht / Wt: 161(cm)/175(kg) Pt. Loc: Echo Lab BSA: 2.8 Study Date: 11/08/2014 Pt. Type: Outpati ent Tape: Referring: Michele Eastman Business Intelligence Etl Developer: Rosemarie Degroot Diagnosis: Dyspnea (786.09) CPT Code(s): Echo Full (78347), Spectral Doppler (93525), Color Doppler (43079), Optison (74813QB), Indication(s):Rhythm: HR BP 153/73 SUMMARY: 1. Technically very difficult study, johnny n with contrast imaging. 2. The left ventricular chamber size is normal. There is mild septal hypertrophy of the left ventricle. There is normal global left ventricular systolic function. Ejection fraction is estimated to be 65%. There are no obvious wall motion ab normalities. 3. The right ventricle is not well visua lized. The right ventricle is probably normal in size. Right ventricul ar global systolic function is probably normal. Pulmonary artery hypert ension could not be assessed due to inadequate tricuspid regurgitatio n jet. 4. See remainder of report for additiona l findings. FINDINGS: Study Quality Technically limited Left Ventricle The left ventricular chamber size is no rmal. There is mild septal hypertrophy of the left ventricle. There is normal global left ventricular systolic function. Ejection fraction is estimated to be 65%. Left sided filling pressure could not b e assessed by Doppler. Left Atrium The left atrium is probably normal in s ize. Right Ventricle The right ventricle is not well visuali zed. The right ventricle is probably normal in size. Right ventricular global systolic funct ion is probably normal. Pulmonary artery hypertension could not be assessed due to inadequate tricuspid regurgitation jet. Right Atrium The right atrium is not well visualized . Aortic Valve The aortic valve is not well visualized . There is no evidence of aortic valve st enosis.by apical Doppler There is no evidence of aortic regurgit ation. Mitral Valve The mitral valve is not well visualized . There is trace mitral regurgitation pre sent. Tricuspid Valve The tricuspid valve is not well visuali zed. There is trace tricuspid regurgitation present. Pulmonic Valve The pulmonic valve is not well visualiz ed. Pericardium The pericardium appears normal and ther e is no evidence of a pericardial effusion. Aorta The aortic root is normal in size. The ascending aorta is normal in size. Venous The inferior vena cava is poorly visual ized. Misc Technically difficult study. See remainder of report for additional findings. Two-dimensional echo, spectral Doppler and color Doppler performed. Definity contrast (one 1.5 ml vial)was used to enhance endocardial definition. Excess contrast was discarde d. Wall Motion: Segment Name Rest Base-Anteroseptal Normal Base-Anterior Not Seen Base-Anterolateral Not Seen Base-Posterolateral Not Seen Base-Inferior Normal Base-Inferoseptal Not Seen Mid-Anteroseptal Normal Mid-Anterior Normal Mid-Anterolateral Normal Mid-Posterolateral Normal Mid-Inferior Normal Mid-Inferoseptal Normal Etta-Septal Normal Etta-Anterior Normal Etta-Lateral Normal Etta-Inferior Normal Etta-Tip Normal Chambers Value Units (Range) IVSd 2D 1.4 cm LVIDd 2D 4.8 cm PWd 2D 1.1 cm LVIDs 2D 3.4 cm LVFS 2D 29 % LA area 23.3 cm2 (<21) Ao root 2.9 cm (2.1 to 3.6) Asc Ao 3.1 cm (2 to 3.5) Mitral Valve Value Units (Range) E peak 1.08 m/sec E/A ratio 1.1 ratio MVDT 217 msec E1 0.1 m/sec E/E1 10.8 ratio Tricuspid/Pulmonic Valves Value Units (Range) TR peak jaylon 2.3 m/sec This report has been electronically sign ed by: _ Jorge Mckeon 11/08/2014 16:24:02 Images reviewed and interpretation song olea [facility] Cardiac Ultrasound Laboratory Michele Eastman MD ECHO ORDERABLES Performing Organization Address City/State/ZIP Code Phon e Number [facility]ART[facility] SYSTEM documented in this encounter Visit Diagnoses Diagnosis FRY (dyspnea on exertion) Other dyspnea and respiratory abnormalit y Chronic chest pain Chest pain, unspecified Hemothorax Other specified forms of effusion, excep t tuberculous FRY (dyspnea on exertion) Other dyspnea and respiratory abnormalit y FRY (dyspnea on exertion) Other dyspnea and respiratory abnormalit y documented in this encounter Care Teams Melter Clerk Relationship Specialty Start Date End Date Sunitha Milligan MD PCP - General 07/07/10 02/18/16 [address] [place] [address] documented as of this encounter
--- OUTSIDE RECORDS SUMMARY | 2022-03-05 02:18 | XMS_ITS | Encounter Summary ---
:1955 Author Organization [facility] [place] [address] Care Team Providers Name Role Phone uSnitha Milligan MD Primary Care Provider Encounter Details Date Type Department Care Team Description 07/29/2014 Telephone Pulmonology at [facility] Padmini Lozano MD [facility] [place] [address] PULMONARY MEDICINE [phone] [place], [place] [address] (Wo rk) Social History Tobacco Use Types Packs/Day Years Used Date Former Smoker Sex Assigned at Date Recorded Not on file documented as of this encounter Miscellaneous Notes Telephone Encounter - Padmini Lozano MD - 07/29/2014 9:01 AM EST 1) CT guided pleural fluid aspiration. Negative for infectious etiology tested. Unfortunately, despite the order was in, cytology was not sent with unclear reason. 2) CT scan was repeated on 07/16/2014. The RML nodule previously seen in 04/2014 was not seen this time. Effusion has reaccumulated to some extent since the thoracentesis, however not to the degree seen in 03/2014. I have called her to discuss to formulate next plan, however she was not available at this time. I have left a voice mail. Even after two thoracentesis, unfortunately no cytologic analysis has been performed yet. Unless theeffusion totally resolves, I think she will need another thoracentesis to rule out malignant effusion.( even this effusion appears to be related to chest trauma after fall from a chair in 03/2014, at that time she had hemothorax, reportedly) I will obtain baseline CXR, which may be useful to follow up on this in future. Then I will likely request US guided thoracentesis. documented in this encounter Plan of Treatment Not on filedocumented as of this encounter Visit Diagnoses Not on filedocumented in this encounter Care Teams Crm System Administrator Relationship Specialty Start Date End Date Sunitha Milligan MD PCP - General 07/07/10 02/18/16 [address] [place] [address] documented as of this encounter
--- OUTSIDE RECORDS SUMMARY | 2022-03-05 02:18 | XMS_ITS | Encounter Summary ---
:1955 [place] [address] Care Team Providers Name Role Phone Sunitha Milligan MD Primary Care Provider Encounter Details Date Type Department Care Team Description 11/08/2014 Hospital Encounter Non-Invasive FRY (dysp nishi on Cardiology Lab [address] [place] ) [place] [address] Social History Tobacco Use Types Packs/Day [...] Procedure Name Priority Date/Time Associated Comments Diagnosis ECHOCARDIOGRAM Routine 11/08/2014 3:55 PM FRY (dyspnea on Resu lts for this TRANSTHORACIC(LEB) EDT exertion) procedure are in the results section. documented in this encounter Results Echocardiogram Transthoracic(Leb) (11/08/2014 3:55 PM EDT) P athologist Signature EF 65 [facility] SYSTEM Specimen (Source) Anatomical Location Collection Method / Collectio n Time Received Time / Laterality Volume 11/08/2014 Narrative [facility]ART[facility] SYSTEM - 11/08/2014 4:24 PM EDT Procedure: ? Transthoracic Echocardiogram Patient: ? YOUNG CYN A ? (Age): 1955(59) Med Rec#: ?[id number] ? Sex: ?F ? [place] [place] Ht / Wt: ??161(cm)/175(kg) Pt. Loc: ? Echo Lab ? BSA: ?2.8 Study Date: ?11/08/2014 ? Pt. Type: Outpatient Tape: ? Referring: Padmini Lozano Rewards Consultant: Rosemarie Degroot Diagnosis: ??Dyspnea (786.09) CPT Code(s): ??Echo Full (15878), ??Spec tral Doppler (92198), ??Color Doppler (88063), ??Optison (80575RK), Indication(s):Rhythm: HR ?BP ?153/73 ?? SUMMARY: 1. [...] ? Mid-Inferior ?Normal ? Mid-Inferoseptal ?Normal ? Zuni-Septal ? Normal ? Zuni-Anterior ? Normal ? Zuni-Lateral ?Normal ? Zuni-Inferior ? Normal ? Zuni-Tip ?Normal ? Chambers ?Value ?Units (Range) ? [...] 4:02 Images reviewed and interpretation verif ied [facility] Cardiac Ultrasound Laboratory Procedure Note Jorge Mckeon MD - 11/08/2014Format ting of this note might be different from the original. Procedure: Transthoracic Echocardiogram Patient: JOHAN Magana DOB(Age): [birth year] [age]) Med Rec#: [id number] Sex: F [place] Loc[place] [facility] Ht / Wt: 161(cm)/175(kg) Pt. Loc: Echo Lab BSA: 2.8 Study Date: 11/08/2014 Pt. Type: Outpati ent Tape: Referring: Padmini Lozano Rewards Consultant: Rosemarie Degroot Diagnosis: Dyspnea (786.09) CPT Code(s): Echo Full (91987), Spectral Doppler (30017), Color Doppler (24468), Optison (06700CT), Indication(s):Rhythm: HR BP 153/73 SUMMARY: 1. Technically [...] Normal Mid-Posterolateral Normal Mid-Inferior Normal Mid-Inferoseptal Normal Zuni-Septal Normal Zuni-Anterior Normal Zuni-Lateral Normal Zuni-Inferior Normal Zuni-Tip Normal Chambers Value Units (Range) IVSd 2D [...] Mckeon 11/08/2014 16:24:02 Images reviewed and interpretation verif ied [facility] Cardiac Ultrasound Laboratory Padmini Lozano MD ECHO ORDERABLES Performing Organization Address City/State/ZIP Code Phon e Number HEARTLAB SYSTEM documented in this encounter Visit Diagnoses Diagnosis FRY (dyspnea on exertion) Other dyspnea and respiratory abnormalit y documented in this encounter Administered Medications Inactive Administered Medications - up to 3 most recent administrations Medication Order MAR Action Action Date Dose Rate Site perflutren lipid microspheres Given 11/08/2014 3:00 PM EDT 1.4 m Ls (DEFINITY) injection 1.4 mL 1.4 mL (rounded from 1.35 mL), Intravenous, ONCE PRN, 1 dose, Starting on Tue11/08/14 at 1556, Until Tue11/08/14 at 1500, Other, Routine documented in this encounter Care Teams Jewelry Estimator Relationship Specialty Start Date End Date Sunitha Milligan MD PCP - General 07/07/10 02/18/16 [address] [place] [address] documented as of this encounter
--- OUTSIDE RECORDS SUMMARY | 2022-03-05 02:18 | XMS_ITS | Encounter Summary ---
:1955 Author Organization [facility] Address [address] [place] [address] Care Team Providers Name Role Phone Alphonso Murphy MD Primary Care Provider [phone] Encounter Details Date Type Department Care Team Description 01/10/2017 Hospital Encounter [place] [address] Social History Tobacco Use Types Packs/Day Years Used Date Former Smoker 3 40 Quit: 10/08/19 11 Sex Assigned at Date Recorded Not on file documented as of this encounter Medications at Time of Discharge Medication Sig Dispensed Refills Start Date End Date OXYGEN-AIR DELIVERY 2 L. 0 12/24/2014 SYSTEMS MISC ipratropium-albuterol Take 3 mLs by 0 12/02/2016 (DUONEB) 0.5 mg-3 nebulization every 6 mg(2.5 mg base)/3 mL hours as needed. Solution for Nebulization PROAIR HFA 90 Inhale 1-2 puffs into 1 01/03/2017 12/17/2020 mcg/actuation HFA the lungs every 6 Aerosol Inhaler hours as needed. buPROPion HCl, smoking Take 150 mg by mouth 1 05/21/2019 deter, 150 mg Tablet daily. Sustained Release 12 hr citalopram (CELEXA) 20 Take 20 mg by mouth 1 11/1305/21/2019 mg Tablet daily. fluticasone (FLONASE) 1 spray by Each Nare 0 11/1305/21/2019 50 mcg/actuation [place], route daily. Suspension furosemide (LASIX) 40 Take 80 mg by mouth 1 08/1701/21/2017 mg Tablet daily. gabapentin (NEURONTIN) Take 200 mg by mouth 2 1 0 01/06/2017 05/21/2019 100 mg Capsule times daily. metOLazone (ZAROXOLYN) Take 2.5 mg by mouth 0 01/21/2017 2.5 mg Tablet See Admin Instructions. 1 tab PO with furosemide on and Tuesday morning if needed for edema furosemide (LASIX) 40 0 05/15/201411/2016 mg Tablet metolazone (ZAROXOLYN) 0 05/15/2014 2.5 mg Tablet potassium chloride 0 12/21/20132016 (MICRO-K) 10 mEq Capsule, Sustained Release zolpidem (AMBIEN) 10 mg 0 04/04/2014 0 01/16/2017 Tablet gabapentin (NEURONTIN) 800 MG = 1 Tablet(s), 0 01/16/2017 800 mg tablet PO, Q8H aspirin 325 mg tablet 325 MG, PO, Twice 0 011 01/16/2017 daily CITALOPRAM HYDROBROMIDE 40 MG = 1 Tablet(s), 0 01/16/2017 (CITALOPRAM ORAL) PO, Once daily albuterol-ipratropium 0 08/26/201011/2016 (COMBIVENT) 18-103 mcg/Actuation inhaler fluticasone-salmeterol 0 08/26/2010 (ADVAIR HFA) 115-21 mcg/Actuation inhaler buPROPion (WELLBUTRIN 0 08/26/201011/2016 SR) 150 mg 12 hr tablet MOMETASONE FUROATE 0 08/26/20102016 (MOMETASONE NASL) nabumetone (RELAFEN) 750 MG = 1 Tablet(s), 0 08/1501/16/2017 750 mg tablet PO, Twice daily documented as of this encounter Plan of Treatment Not on filedocumented as of this encounter Procedures Procedure Name Priority Date/Time Associated Diagnosis Comme nts FILM LIBRARY Routine 01/10/2017 12:00 AM Results for this STORAGE ONLY CT EDT procedure ar e in CHEST the results section. documented in this encounter Results Film Library- Storage Only CT Chest (01/10/2017 12:00 AM EDT) Specimen (Source) Anatomical Location Collection Method / Collectio n Time Received Time / Laterality Volume Narrative RAD - 01/16/2017 12:30 PM EDT This exam is for storage only and is aut o-finalizing. Nakul Garland MD IMG FILM LIBRARY ORDERABLES Performing Organization Address City/State/ZIP Code Phon e Number [place], [place] documented in this encounter Visit Diagnoses Not on filedocumented in this encounter Care Teams Duplicator Punch Set Up Operator Relationship Specialty Start Date End Date Alphonso Murphy MD PCP - General Family Medicine 02/19/[address] [place] [address] documented as of this encounter
--- OUTSIDE RECORDS SUMMARY | 2022-03-05 02:18 | XMS_ITS | Encounter Summary ---
:1955 Author Organization [facility] [place] [address] Care Team Providers Name Role Phone Sunitha Milligan MD Primary Care Provider Encounter Details Date Type Department Care Team Description 07/30/2014 Telephone Pulmonology at [facility] Padmini Lozano MD [facility] [place] [address] PULMONARY MEDICINE [phone] [place], [place] [address] (Wo rk) Social History Tobacco Use Types Packs/Day Years Used Date Former Smoker Sex Assigned at Date Recorded Not on file documented as of this encounter Miscellaneous Notes Telephone Encounter - Padmini Lozano MD - 07/30/2014 4:50 PM EST Called and talked to her. Notified of the CT result, which showed some re- accumulation of pleural effusion post procedure ( but much less than April, when she had chest trauma). She still have some exertional dyspnea and feels tingling on her chest. Otherwise no major changes. We will obtain CXR now to see how much fluid she has. If it is sizable, I will request US ( or CT ) guided tap for CYTOLOGY, which was not sent on the previous procedure for unclear reason. She will call me back after CXR to discuss and formulate the plan. documented in this encounter Plan of Treatment Not on filedocumented as of this encounter Results XR chest routine PA & lateral (08/01/2014 12:12 PM EST) Anatomical Region Laterality Modality Chest N/A Radiographic Imaging Specimen (Source) Anatomical Collection Method Collection Time Re ceived Time Location / / Volume Laterality 08/01/2014 12:12 PM EST Impressions 08/01/2014 1:56 PM EST IMPRESSION: No definite pleural effusion or other acute pulmonary abnormality This report was reviewed by Vince daigle at 08/01/2014 1:54 PM Film and interpretation reviewed by the attending Narrative 08/01/2014 1:56 PM EST EXAMINATION: CHEST ROUTINE 2 VIEWS CLINICAL HISTORY: hemothorax in Sept. ?? then persistent effusion eversince. ??had tap in Jun, had CT on Jul 16. ??would lik e to check how much/fast re-accumulate if any. TECHNIQUE: AP and lateral sitting semiup right chest radiograph COMPARISON: CT chest July 16, 2014 an d chest radiograph December 18, 2013 FINDINGS: There is no pneumothorax or la rge pleural effusion but a small residual right pleural effusion cannot b e completely excluded due to the large body habitus and shallow degree of infla tion. There are low lung volumes with no new focal airspace opacity. The mediasti nal silhouette, hilar and pulmonary vasculature are unchanged. No interval o sseous findings. Procedure Note Vince Dillard MD - 08/01/2014Formatt ing of this note might be different from the original. EXAMINATION: CHEST ROUTINE 2 VIEWS CLINICAL HISTORY: hemothorax in Sept. th en persistent effusion eversince. had tap in Jun, had CT on Jul 16. would like to check how much/fast re-accumulate if any. TECHNIQUE: AP and lateral sitting semiup right chest radiograph COMPARISON: CT chest July 16, 2014 an d chest radiograph December 18, 2013 FINDINGS: There is no pneumothorax or la rge pleural effusion but a small residual right pleural effusion cannot b e completely excluded due to the large body habitus and shallow degree of infla tion. There are low lung volumes with no new focal airspace opacity. The mediasti nal silhouette, hilar and pulmonary vasculature are unchanged. No interval o sseous findings. IMPRESSION IMPRESSION: No definite pleural effusion or other acute pulmonary abnormality This report was reviewed by Vince daigle at 08/01/2014 1:54 PM Film and interpretation reviewed by the attending Padmini Lozano MD IMG DX ORDERABLES documented in this encounter Visit Diagnoses Diagnosis Pleural effusion Unspecified pleural effusion Pleural effusion Unspecified pleural effusion documented in this encounter Care Teams Vice President Of Talent Management Relationship Specialty Start Date End Date Sunitha Milligan MD PCP - General 07/07/10 02/18/16 [address] [place] [address] documented as of this encounter
--- OUTSIDE RECORDS SUMMARY | 2022-03-05 02:18 | XMS_ITS | Encounter Summary ---
:1955 Author Organization [facility] [place] [address] Care Team Providers Name Role Phone Sunitha Milligan MD Primary Care Provider Encounter Details Date Type Department Care Team Description 06/11/2014 Hospital Encounter Laboratory Padmini Lozano, Hyperglycemia; [facility] Pleural effusion [facility] [id number] PULMONARY [phone] [place], [place] [address] Social History Tobacco Use Types [...] Name Priority Date/Time Associated Diagnosis Comme nts PROTEIN, TOTAL Routine 06/11/2014 11:26 Pleural effusion Resul ts for this AM EDT procedure are i n the results section. LACTATE DEHYDROGENASE Routine 06/11/2014 11:26 Pleural effusio n Results for this AM EDT procedure are i n the results section. GLUCOSE, RANDOM Routine 06/11/2014 11:26 Hyperglycemia Results for this AM EDT procedure are i n the results section. documented in this encounter Results (ABNORMAL) Lactate Dehydrogenase (06/11/2014 11:26 AM EDT) P athologist Signature LDH 277 (H) 110 - 220 CERNER unit/L [facility]ENNIUM Specimen Anatomical Collection Method Collection Time Receive d Time (Source) Location / / Volume Laterality Blood specimen 06/11/2014 11:26 4 (specimen) AM EDT 11:28 AM EDT Resulting Agency Comment Spec In Lab Padmini Lozano MD CHEMISTRY ORDERABLES Performing Organization Address City/State/[place] [address] [facility] Protein, total (06/11/2014 11:26 AM EDT) P athologist Signature Total Protein 6.8 6.4 - 8.3 CERNER gm/dL [facility] Specimen Anatomical Collection Method Collection Time Receive d Time (Source) Location / / Volume Laterality Blood specimen 06/11/2014 11:26 4 (specimen) AM EDT 11:28 AM EDT Resulting Agency Comment Spec In Lab Padmini Lozano MD CHEMISTRY ORDERABLES Performing Organization Address City/[facility]/ZIP Code Phon e Number [address] [facility] MILLENNIUM Glucose, random (06/11/2014 11:26 AM EDT) P athologist Signature Glucose Lvl 120 60 - 199 CERNER mg/dL [facility] Comment: Diabetes: >=200 mg/dL plus symp toms Specimen Anatomical Collection Method Collection Time Receive d Time (Source) Location / / Volume Laterality Blood specimen 06/11/2014 11:26 4 (specimen) AM EDT 11:28 AM EDT Resulting Agency Comment Spec In Lab Padmini Lozano MD CHEMISTRY ORDERABLES Performing Organization Address City/[facility]/ZIP Code Phon e Number [address] [facility] documented in this encounter Visit Diagnoses Diagnosis Hyperglycemia Other abnormal glucose Pleural effusion Unspecified pleural effusion documented in this encounter Care Teams Local Telephone Operator Relationship Specialty Start Date End Date Sunitha Milligan MD PCP - General 07/07/10 02/18/16 [address] [place] [address] documented as of this encounter
--- OUTSIDE RECORDS SUMMARY | 2022-03-05 02:18 | XMS_ITS | Encounter Summary ---
:1955 Author Organization [facility] Address [address] [place] [address] Care Team Providers Name Role Phone Sunitha Milligan MD Primary Care Provider Encounter Details Date Type Department Care Team Description 08/01/2014 Hospital Encounter [place] [place] [facility] Pleural effusion [address] [place] [address] Padmini Keller MD [facility] [place] [address] [place] [address] Social History Tobacco Use Types [...] Priority Date/Time Associated Diagnosis Comme nts XR CHEST PA AND Routine 08/01/2014 12:12 PM Pleural effusion R esults for this LATERAL EST procedure are i n the results section. documented in this encounter Results XR chest routine PA [...] 2 VIEWS CLINICAL HISTORY: hemothorax in Apr. en persistent effusion eversince. had tap in [...] effusion documented in this encounter Care Teams Maritime Pilot Relationship Specialty Start Date End Date Sunitha Milligan MD PCP - General 07/07/10 02/18/16 [address] [place] [address] documented as of this encounter
--- OUTSIDE RECORDS SUMMARY | 2022-03-05 02:18 | XMS_ITS | Encounter Summary ---
:1955 [place] [address] Care Team Providers Name Role Phone Alphonso Murphy MD Primary Care Provider [phone] Encounter Details Date Type Department Care Team Description 01/15/2017 Hospital Encounter Radiology Library at [facility], Herbert Salcido [facility] [place] [address] [place] [address] [facility] MEDICINE [phone] [place], [place] [address] (Wo rk) Social History Tobacco [...] by mouth 1 11/1305/21/2019 mg Tablet daily. enoxaparin (LOVENOX) Inject 150 mg 0 01/12/2017 0 01/21/2017 150 mg/mL Syringe subcutaneously 2 times daily. enoxaparin (LOVENOX) 30 Inject 30 mg 0 01/12/2017 01/21/2017 mg/0.3 mL Syringe subcutaneously 2 times daily. Total 180 mg SQ BID fluticasone (FLONASE) 1 spray by Each Nare 0 11/1305/21/2019 50 mcg/actuation [place], route daily. Suspension furosemide (LASIX) 40 Take 80 mg by mouth 1 08/1701/21/2017 mg Tablet daily. gabapentin (NEURONTIN) Take 200 mg by mouth 2 1 0 01/06/2017 05/21/2019 100 mg Capsule times daily. lisinopril Take 5 mg by mouth 0 01/12/20172018 (PRINIVIL;ZESTRIL) 5 mg daily. Tablet melatonin 3 mg Tablet Take 3 mg by mouth 0 201605/21/2019 nightly as needed. metOLazone (ZAROXOLYN) Take 2.5 mg by mouth 0 01/21/2017 2.5 mg Tablet See Admin Instructions. 1 tab PO with furosemide on and Tuesday morning if needed for edema potassium chloride Take 2 capsules by 0 7 01/21/2017 (MICRO-K) 10 mEq mouth 2 times daily. Capsule, Sustained Release spironolactone Take 100 mg by mouth 0 01/12/2017 01/21/2017 (ALDACTONE) 50 mg daily. Tablet furosemide (LASIX) 40 0 05/15/201411/2016 mg Tablet [...] Associated Diagnosis Comme nts FILM LIBRARY Routine 01/15/2017 12:00 AM Pain Results for this STORAGE ONLY DX EDT procedure ar e in CHEST the results section. documented in this encounter Results Film Library- Storage Only DX Chest (01/15/2017 12:00 AM EDT) Specimen (Source) Anatomical Location Collection Method / Collectio n Time Received Time / Laterality Volume Narrative [facility] - 01/15/2017 11:09 PM EDT This exam is for storage only and is aut o-finalizing. Nakul Garland MD IMG FILM LIBRARY ORDERABLES Performing Organization Address City/State/ZIP Code Phon e Number [place], [place] documented in this encounter Visit Diagnoses Diagnosis Pain Generalized pain documented in this encounter Care Teams Actuarial Clerk Relationship Specialty Start Date End Date Alphonso Murphy MD PCP - General Family Medicine 02/19/[address] [place] [address] documented as of this encounter
--- OUTSIDE RECORDS SUMMARY | 2022-03-05 02:18 | XMS_ITS | Encounter Summary ---
:1955 Author Organization [place] [address] Care Team Providers Name Role Phone Alphonso Murphy MD Primary Care Provider [phone] Reason for Visit Auth/Cert Specialty Diagnoses / Procedures Referred By Contact Refer red To Contact Diagnoses JODY (acute kidney injury) ACUTE RENAL FAILURE Referral ID Status Reason Start Date Expiration Date Visits Requ ested Visits Authorized [id number] 1 1 Encounter Details Date Type Department Care Team Description 01/16/2017 - [place] [address] Krunal Damico MD [facility] [place] [address] Hyperkalemia; 01/21/2017 Encounter [facility] Alvaro Law MD [facility] [place] [address] Hypotension, unspecified hypotension typ e; [facility] [place] [address] Obesity, unspecified obesity severity, u nspecified obesity type; [facility] Huan Morris MD [facility] [place] [address] JODY (acute kidney injury); Nakul Haley MD [facility] [place] [address] Pleural effusion on right; [place], [place] Musculoskeletal chest pain [id number] Social History Tobacco Use Types Packs/Day Years [...] Sign Reading Time Taken Comments Blood Pressure 110/54 01/21/2017 11:49 AM EDT Pulse 81 01/21/2017 7:00 AM EDT Temperature 36.8 ??C (98.2 ??F) 01/21/2017 11:49 AM EDT Respiratory Rate 17 01/21/2017 11:49 AM EDT Oxygen Saturation 100% 01/21/2017 11:49 AM EDT Inhaled Oxygen Concentration - - Weight 186.2 kg (410 lb 8 oz) 01/21/2017 5:35 AM EDT Height 160 cm (5' 3) 01/16/2017 1:08 AM EDT Body Mass Index 72.72 01/16/2017 1:08 AM EDT documented in this encounter Discharge Summaries Alvaro Law MD - 01/21/2017 3:11 PM EDT Discharge Summary Patient Name: Cyn Magana Young Patient Age: 61 y.o. Language: Citizen Of [place] Race: White Ethnicity: Not nor Admit date: 01/16/2017 Discharge date and time: 01/21/2017 3:37 PM Attending Physician: Alvaro Law MD Discharge Physician: ALVARO LAW MD Follow-up Recommendations for Providers: - Continue to monitor the patient for edema and consider judicious use of diuretics in the future given that patient was recently hospitalized for over- diuresis and JODY requiring ICU stay and 11L of IVfluids (approximately) - Note that patient DOES NOT have PE on re-read of recent positive CT scan Inpatient Provider Contact Information: For questions regarding this document or issues relating to this hospitalization on the Medical Service, please contact your inpatient physician through the [facility] Sql S[employer] Ssis Developer . Issues after hours and on weekends will be handled by the Hospitalist staff on-call. Discharge Diagnoses (Hospital Problems) and Secondary Diagnoses (Chronic Problems): Active Hospital Problems Diagnosis ??? JODY (acute kidney injury) Resolved Hospital Problems Diagnosis Date Resolved No resolved problems to display. Active Non-Hospital Problems Diagnosis ??? Musculoskeletal chest pain ??? Pleural effusion on right ??? Obesity ??? CIS - Entered not Verified ??? CIS - L knee increasing pain ??? CIS - Aftercare TKAs Operations/Major Procedures: Operations: Other Major Procedures: None History of Presentation: This is a 61 y.o. female with morbid obesity, DAVID on BPAP, presumed hypoventilation, on 2LPM at home, OSH chart history of COPD and diastolic heart failure and PE with recent admission who presents in transfer from [facility] with new renal failure. ?? She was initially seen over 2 weeks ago at [facility] and reportedly admitted for SOB for about 3 days. She was discharged but returned immediately after again for SOB. Per verbal report from OSH, she was treated as COPD/ diastolic heart failure. Her med rec shows abx being prescribed near discharged as well. She cannot say what it was except that she was very wheezy, in the ICU for the first week of hospitalization needing BPAP, and then on the regular floor for the second week. She does believe they hadincreased her diuretics so that she was urinating a lot- reports being 428 lbs prior to that admission and being 392 lbs now. Early on she was also apparently diagnosed with PEs and started on enoxaparin early in her stay. Her breathing did improve nicely but she reported being completely wiped out atthe time of discharge on 01/13 (of note, verbal report was that she left earlier than was advised). ?? She continued to be very tired at home though breathing remained good. She had follow-up labs done with Cr now greater than 5 and I am told it was less than 1 during her recent stay; I don't have any of the records from that stay. Thus she was called to present to the ER. ?? At the [facility] ER, labs were repeated with Cr 5.9 (as below). No ECG changes associated with her K 5.9.She felt she urinated at least 1 cup urine this morning (no changes in urine appearance), then a schmitt was placed at the ER with ~200 mL reported out. She has also noted she has oozing blood from her multiple IV sticks over the last few weeks, and significant (painful) increase in bruising over her abdomen where she has been giving herself 180 mg BID of enoxaparin. She does feel confused, very tired,and also complains of some twitches. Denies any flank pains. No blood in her stool or urine. Denies taking any form of NSAIDs. Had been eating/drinking as usual. Hospital Course: # Hypotension with hypovolemic shock and possible septic shock # JODY This problem was most likely due to volume depletion in the setting of overdiuresis for her edema. She was initially admitted with fluid resuscitation given, but needed rapid transfer to the ICU due tohypotension likely due to hypovolemic shock. In the ICU, the patient was given broad spectrum antibiotic, pressors, and aggressive fluid resuscitation. She responded well and started making urine as her volume status improved and her blood pressure normalized. Pressors were quickly weaned. Blood cultures were negative and urine cultures grew missy which were not believed to be related to her initial presentation. Her antibiotics were narrowed to ceftriaxone IV on transfer to the floor and were notcontinued on discharge given the low likelihood of infection on presentation. She was eventually discharged with no diuretics at all given normal renal function and no need for diuresis with respect tobreathing and mobilization. She can get diuretics as an outpatient if necessary for symptoms (ie foredema PRN). # Possible PE Re-read of her CT PE scan ruled out PE. Therefore no further anticoagulation was indicated. The patient continued to have scant hemoptysis and so heparin SC was also discontinued to help her recover. Note that given her renal function on admission she likely had overdosed on lovenox and that was the most likely etiology of her excessive bruising. Vital Signs at Discharge: BP: 110/54, Heart Rate: 81, Temp: 36.8 ??C (98.2 ??F), Resp: 17, Height: 160 cm (5' 3) (01/16/17 0108) Weight - Scale: (!) 186.2 kg (410 lb 8 oz) (01/21/17 0535) Functional and Cognitive Status: Good Important Studies and Lab Data: Labs: Last 3 wbc, hgb, hct plt Recent Labs 01/21/17 0831 01/20/17 1115 01/19/17 0400 WBC 13.3* 14.4* 12.4* HGB 10.1* 8.7* 9.1* HCT 30.6* 25.2* 26.5* PLATELET 240 184 182 Last 3 Lytes Recent Labs 01/21/17 0507 01/20/17 1030 01/19/17 0400 NA 138 138 135 K 3.8 3.8 3.7 CL 96* 99 96* CO2 29 28 27 BUN 10 14 24* CREATININE 0.66* 0.76 1.00 Last 3 LFTs Recent Labs 01/16/17 2145 01/16/17 0332 AST 13 19 ALT 25 30 ALKPHOS 48 56 BILITOT 0.5 0.7 BILIDIR 0.2 0.1 Studies: 01/17/17 -- 2nd Read CT Chest from OSH 1. ??No pulmonary embolism. 2. ??Mild cardiomegaly. 3. ??Distended gallbladder. ? OTHER Studies: 01/17/17 -- TTE 1. Technically limited ??Optison contrast (one 3 ml vial) was used to enhance endocardial definition. 2. Mild concentric left ventricular hypertrophy is observed. ??Global left ventricular systolic function appears hyperdynamic. ??Ejection fraction is estimated to be 75%. ??There are no left ventricular segmental wall motion abnormalities. 3. The right ventricle is probably normal in size. Right ventricular global systolic function is normal. 4. The left atrium is moderately dilated.46ml/m2 5. There is no hemodynamically significant valve disease. 6. See remainder of report for additional findings. Pending Studies and Lab Data: None Discharge Conditions/Prognosis: Stable Discharge to: Home with VNA Updated Allergies/ADRs: Allergies Allergen Reactions ??? Iodinated Contrast- Oral And Iv Dye ??? Iodine And Iodide Containing Products CIS - Rash, CIS - Rash ??? Morphine Rash ??? Oxycodone Rash Immunizations Given this Hospitalization: Immunization History Administered Date(s) Administered ??? Influenza PF, Split 05/21/2014 ??? Influenza Vaccine, Whole 06/10/2005, 06/22/2006, 06/15/2008 ??? Pneumococcal Polyvalent 23 04/15/2000, 11/29/2005 ??? Td, adult 08/15/2003 Discharge Medications: Your Medications Continued medications, unchanged Dose Details buPROPion HCl (smoking deter) 150 mg Tb12 Take 150 mg by mouth daily. 150 mg Refills: 1 citalopram 20 mg Tab Commonly known as: CeleXA Take 20 mg by mouth daily. 20 mg Refills: 1 fluticasone 50 mcg/actuation Spsn Commonly known as: FLONASE 1 spray by Each Nare route daily. 1 spray Refills: 0 gabapentin 100 mg Cap Commonly known as: NEURONTIN Take 200 mg by mouth 2 times daily. 200 mg Refills: 1 ipratropium-albuterol 0.5 mg-3 mg(2.5 mg base)/3 mL Nebu Commonly known as: DUONEB Take 3 mLs by nebulization every 6 hours as needed. 3 mL Refills: 0 lisinopril 5 mg Tab Commonly known as: PRINIVIL;ZESTRIL Take 5 mg by mouth daily. 5 mg Refills: 0 melatonin 3 mg Tab Take 3 mg by mouth nightly as needed. 3 mg Refills: 0 PROAIR HFA 90 mcg/actuation Hfaa Inhale 1-2 puffs into the lungs every 6 hours as needed. Generic drug: albuterol 1-2 puff Refills: 1 STOPPED Medications enoxaparin 150 mg/mL Syrg Commonly known as: LOVENOX enoxaparin 30 mg/0.3 mL Syrg Commonly known as: LOVENOX furosemide 40 mg Tab Commonly known as: LASIX metOLazone 2.5 mg Tab Commonly known as: ZAROXOLYN potassium chloride 10 mEq Cpsr Commonly known as: MICRO-K spironolactone 50 mg Tab Commonly known as: ALDACTONE Smoking Status at Discharge: History Smoking Status ??? Former Smoker ??? Packs/day: 3.00 ??? Years: 40.00 ??? Types: Cigarettes ??? Quit date: 10/08/2010 Smokeless Tobacco ??? Never Used Instructions Given to Patient at Discharge: Patient Instructions Patient Instructions on Discharge to Home Why you were hospitalized - acute kidney injury, volume depletion Call your doctor or seek medical attention if you develop the following - chest pain, shortness of breath, feeling dizzy upon standing, passing out, diarrhea, constipation lasting longer than 2 days, fevers (temperature over 100.3), chills, abdominal pain, vomiting, difficulty or discomfort when urinating, bloody or black bowel movements, or any other acute or concerning symptom. Home Oxygen Therapy - 2 liter per minute via nasal cannula, continue with the same night-time home bipap you were previously using Anticoagulation Management (Blood Thinner Medications) Upon Discharge - None. Important Instructions: ?? If your doctor starts you on any diuretics in the future, please have a careful discussion with them about your kidney function. ?? Please follow up with your primary care doctor next week (appointment details below). ?? If you experience any concerning symptoms including the ones listed above, please do not hesitateto call your doctor's office and seek medical attention immediately. Non-[facility] Follow-up Appointments: ?? PCP: Dr. Murphy, TuesdayJanuary 25 @ 11:20AM [facility] Follow-up Appointments: No future appointments. Your Inpatient Medical Team at [facility]: MD Imani Diez, [facility] For questions regarding issues relating to your hospitalization on the Hospital Medicine Service, please contact your inpatient physician through the [facility] [employer] Ssis Developer [phone]. Issues after hours and on weekends will be handled by the Hospitalist staff on-call. Your Primary Care Provider Alphonso Murphy MD [phone] General Instructions None Future Appointments and Orders Future Orders Complete By Expires Referral to Home Health - at DISCHARGE [[id number] CPT(R)] As directed Process Instructions: Scheduling Instructions: Comments: DOCUMENTATION FOR VNA SERVICES (INCLUDING THOSE PATIENTS WITH MEDICARE COVERAGE REQUIRING HOME VNA SERVICES AND/OR HOSPICE SERVICES) PATIENT'S LOCATION: Cyn Prado [address] [place] [phone] (home) Cell: Telephone Information: General Counsel's Name: self In discussion with the attending physician, it is certified that this patient is under their care and that they, or a Nurse Practitioner,Clinical Nurse specialist or Physician Tower Foreman who is working directly with them, had a face to face encounter that meets the physician face to face encounter requirements with this patient on 01/21/2017 The encounter with the patient was in whole, or in part, for the following medical condition, which is the primary reason for home health care services: Morbid obesity, extensive bruising around abdomen In discussion with the provider, it is certified that, based on their findings, the following services are medically necessary for home health services. To provide the following care/treatments with the clinical findings supporting the need for servicesas follows: Help with medications, monitoring for recovery from recent extensive pannus bruising HOME CARE ORDERS: RN ORDERS:Assess wound or incision, vital signs, cardiopulmonary status, nutrition, hydration, elimination, meds effectiveness and management; reinforce education re health issues PT ORDERS: Continue rehab for endurance, gait stability and strength with mobility and transfers. Home safety evaluation. Home exercise program if appropriate. OT: assess and continue rehab for managing ADL's. HOME HEALTH CARE AGENCY: [facility] PHONE: [phone] FAX: [phone] Start of care: 24-48 hours post discharge FOR MEDICARE ONLY: In discussion with the attending physician, it is certified that the clinical findings support that this patient is homebound because absences from home require considerable and taxing effort due to: Acute Kidney Injury with lethargy and weakness. Evaluated by Physical Therapy who prescribed home withVNA services Please note that any additional orders needs or changes will need to be obtained from this patient'sPCP: Alphonso Murphy MD [address] / [place] [address] All [facility] agencies which cover the area of patient's residence have been reviewed, either verbally or in writing, and patient/family have chosen the home health care agency noted Questions: Agency name and contact information: [facility] Patient location post discharge: home What services are requested: Registered Nurse Physical Therapy Occupational Therapy Start date: Responsible MD post discharge contact info: pcp Discharge References/Attachments None documented in this encounter Discharge Instructions Patient InstructionsAlvaro Law MD - 01/21/2017 1:39 PM EDT Patient Instructions on Discharge to Home Why you were hospitalized - acute kidney injury, volume depletion Call your doctor or seek medical attention if you develop the following - chest pain, shortness of breath, feeling dizzy upon standing, passing out, diarrhea, constipation lasting longer than 2 days, fevers (temperature over 100.3), chills, abdominal pain, vomiting, difficulty or discomfort when urinating, bloody or black bowel movements, or any other acute or concerning symptom. Home Oxygen Therapy - 2 liter per minute via nasal cannula, continue with the same night-time home bipap you were previously using Anticoagulation Management (Blood Thinner Medications) Upon Discharge - None. Important Instructions: ?? If your doctor starts you on any diuretics in the future, please have a careful discussion with them about your kidney function. ?? Please follow up with your primary care doctor next week (appointment details below). ?? If you experience any concerning symptoms including the ones listed above, please do not hesitateto call your doctor's office and seek medical attention immediately. Non-[facility] Follow-up Appointments: ?? PCP: Dr. Murphy, TuesdayJanuary 25 @ 11:20AM [facility] Follow-up Appointments: No future appointments. Your Inpatient Medical Team at [facility]: MD Imani Diez, [facility] For questions regarding issues relating to your hospitalization on the Hospital Medicine Service, please contact your inpatient physician through the [facility] [employer] Ssis Developer [phone]. Issues after hours and on weekends will be handled by the Hospitalist staff on-call. Your Primary Care Provider Alphonso Murphy MD [phone] documented in this encounter Medications at Time [...] by Each Nare 0 11/1305/21/2019 50 mcg/actuation [place], route daily. Suspension gabapentin (NEURONTIN) Take 200 mg by mouth 2 1 0 01/06/2017 05/21/2019 100 mg Capsule times daily. lisinopril Take 5 mg by mouth 0 01/12/20172018 (PRINIVIL;ZESTRIL) 5 mg daily. Tablet melatonin 3 mg Tablet Take 3 mg by mouth 0 201605/21/2019 nightly as needed. documented as of this encounter Progress Notes Heidi Estrada RN - 01/21/2017 6:15 PM EDT Prepared for d/c. Vital signs stable. Belongings packed and with patient. IV's removed. AVS reviewedwith nurse. Questions answered. Ambulated to [facility] with family. Alvaro Law MD - 01/21/2017 3:37 PM EDT Hospital Medicine - Attending Day of Discharge Documentation Discharge diagnosis Active Hospital Problems Diagnosis ??? JODY (acute kidney injury) Resolved Hospital Problems Diagnosis Date Resolved No resolved problems to display. Secondary Issues Active Non-Hospital Problems Diagnosis ??? Musculoskeletal chest pain ??? Pleural effusion on right ??? Obesity ??? CIS - Entered not Verified ??? CIS - L knee increasing pain ??? CIS - Aftercare TKAs I have personally seen and examined the patient and they are ready for discharge. I spent >30 minutes (Day of Discharge Code 84838) involved in the final examination of the patient, discussion of the hospital stay, instructions for continuing care to all relevant caregivers, and preparation of discharge records, prescriptions and referral forms. Plans ? Discharge to home ? Follow-up scheduled with PCP ? Please see the Discharge Summary for complete details of any medication changes and additional plans. Tomás Riddle PTA - 01/21/2017 2:52 PM EDT Patient defers PT services at this time, stating that she is at her baseline and has no further mobility concerns. Nursing reports patient ambulating in room throughout the day without LOB or concern. Will monitor patient's status during remainder of hospital stay. Tomás Riddle PTA Inpatient Rehab Services Pager: [phone] Grecia Wang RN - 01/21/2017 11:37 AM EDT The patient/shipping services sales representative has been provided a list of Home Health Agencies/DME vendors which serve their preferred geographic area. A letter describing our affiliations was reviewed with them and theywere educated about their right to choose where referrals are placed. Patient requests referral to [facility] Expected date of discharge: today. Referral routed to the Conveyor Feeder for matching with agency/vendor and to provide any required information. Grecia Leiva RN - 01/21/2017 11:28 AM EDT Office of Care Management (OCM)-Helminthologist discharge planning HelminthologistGrecia Service:Ani Reviewed medical record and in rounds with,Charge/Resource RN, SEWING MACHINE OPERATOR SEMIAUTOMATIC, and CM, PT and Hospitalist. Cyn Prado is ready for discharge to home . Met with the patient who is comfortable with the plan. DPOA/POA/surrogate notified by telephone of the plan. Transportation provided by son via private car. An Important Message From Medicare about Your Rights letter reviewed with pt and pt signed acknowledgment and was provided copy. MD notified of plan. Charge Nurse updated. Resource Specialists updated. Grecia Wang Helminthologist, Care Management [email or web address] phone: [phone] fax: [phone] Alvaro Law MD - 01/20/2017 6:08 PM EDT Hospital Medicine Attending Daily Progress Note Admit Date: 01/16/2017 Hospital Day 4 days Active Hospital Problems Diagnosis ??? JODY (acute kidney injury) Resolved Hospital Problems Diagnosis Date Resolved No resolved problems to display. PMH Active Non-Hospital Problems Diagnosis ??? Musculoskeletal chest pain ??? Pleural effusion on right ??? Obesity ??? CIS - Entered not Verified ??? CIS - L knee increasing pain ??? CIS - Aftercare TKAs Inpatient Medications: Scheduled ??? magnesium sulfate 2 g Intravenous Once ? ? potassium, sodium phosphates 3 g Oral 4 Times Daily WC & HS ??? cefTRIAXone 2 g Intravenous Q24H ??? buPROPion 150 mg Oral Daily ??? citalopram 20 mg Oral Daily ??? fluticasone 1 spray Each Nare Daily ??? sodium chloride 0.9 % 5 mL Intravenous Q12H ??? sodium chloride 0.9 % 5 mL Intravenous Q12H Continuous infusions: PRN: ipratropium-albuterol, acetaminophen, polyethylene glycol (MIRALAX)oral powder, senna-docusate,melatonin, sodium chloride 0.9 %, lidocaine, sodium chloride 0.9 %, lidocaine Interval History: Ongoing low volume hemoptysis ROS: No CP, no SOB, no n/v, no diarrhea, no constipation Patient has pain in areas of bruising over pannus Physical Exam Vitals Range last 24 hrs Temperature Temp: [36.6 ??C (97.9 ??F)-36.8 ??C (98.2 ??F)] Heart Rate Heart Rate: [77-82] Blood Pressure BP: (106-128)/(42-51) Respiratory Rate Resp: [18-22] SpO2 SpO2: [95 %-98 %] Intake/Output Summary (Last 24 hours) at 01/20/17 1808 Last data filed at 01/20/17 0836 Gross per 24 hour Intake 600 ml Output 0 ml Net 600 ml Patient Vitals for the past 168 hrs: Weight 01/19/17 0000 (!) 182.3 kg (401 lb 14.4 oz) 01/16/17 0109 (!) 183.7 kg (404 lb 15.8 oz) Body mass index is 71.19 kg/(m^2). Morbidly obese Physical Exam Constitutional: She appears well-nourished. No distress. HENT: Head: Atraumatic. Eyes: EOM are normal. Pulmonary/Chest: Effort normal. No respiratory distress. Abdominal: Soft. She exhibits distension. There is no tenderness. Extensive bruising present Neurological: She is alert. Skin: Skin is dry. Psychiatric: She has a normal mood and affect. Vitals reviewed. Studies reviewed in eDH. Remarkable for the following: LABS: Last 3 wbc, hgb, hct plt Recent Labs 01/20/17 1115 01/19/17 0400 01/18/17 0400 WBC 14.4* 12.4* 15.4* HGB 8.7* 9.1* 10.4* HCT 25.2* 26.5* 30.0* PLATELET 184 182 198 Last 3 Lytes Recent Labs 01/20/17 1030 01/19/17 0400 01/18/17 1925 NA 138 135 136 K 3.8 3.7 3.9 CL 99 96* 99 CO2 28 27 25 BUN 14 24* 26* CREATININE 0.76 1.00 0.92 FSBG Trend Recent Labs 01/19/17 0916 01/19/17 0400 01/19/17 0008 01/18/17 2004 01/18/17 1551 01/18/17 1205 01/18/17 0745 01/18/17 0404 01/18/17 0005 01/17/17 1820 POCGLU 134 134 144 188 132 139 169 187 190 232* MICRO: Recent Labs 01/16/17 1200 URINECULTURE Greater than 100,000 cfu/ml Missy albicans* No results for input(s): GRAMSTAIN, BFCX, LOWERRESPCX, TISSUECX in the last 720 hours. Recent Labs 01/16/17 2120 BLOODCX No growth at 3 days. ECG: Recent Labs 01/16/17 2316 DIAGLINE Normal sinus rhythm with sinus arrhythmia Prolonged QT Abnormal ECG When compared with ECG of 16-JAN-2017 17:19, No significant change was found I personally reviewed the tracing and edited the fellows interpretation Confirmed by fellow MD Geovanni, [facility] ([id number]) on 01/17/2017 11:15:43 AM Confirmed by MD Levy, Madan ([id number]) on 01/17/2017 5:42:15 PM QTCCALC 481 VASCULAR: No results for input(s): VBTEXTRPT in the last 720 hours. IMAGIN01/17/17 -- 2nd Read CT Chest from OSH 1. No pulmonary embolism. 2. Mild cardiomegaly. 3. Distended gallbladder. ?? OTHER Studies: 01/17/17 -- TTE 1. Technically limited Optison contrast (one 3 [...] See remainder of report for additional findings. Assessment: 61 y.o. female with morbid obesity, DAVID on BPAP and on 2LPM at home, OSH chart history of COPD and diastolic heart failure who presents here with new JODY and hypovolemic shock +/- sepsis from a possible urinary source. She is now improved with fluid resuscitation s/p an ICU stay, and a re-read of her CT chest shows no PE (therefore no need for anticoagulation). Otherwise will continue ceftriaxone forUTI and monitor on the floor for ongoing improvement. UTI treatment will end after 7 days, and can continue with PO antibiotics for possible sepsis from a urinary source on discharge. Otherwise will hold her prophylactic heparin for a short time to ensure resolution of ongoing hemoptysis and add SCDs. Plan: # JODY, hyperkalemia # Uremic encephalopathy - resolved - Ongoing urine output - Encourage PO intake - No further need for diuretics, would be very judicious with diuresis in future if needed - Schmitt currently in place - Neutraphos QID for phosphate repletion # Severe bruising # Hemoptysis - Hold heparin SC prophylaxis for now - No need for lovenox # COPD - unconfirmed diagnosis - Nebs PRN # DAVID / presumed OHS - BiPAP when sleeping # Diastolic heart failure: unconfirmed. No diuretics IV access: PIV Tubes/Drains: Schmitt DVT PPX: SCDs Anticipated Disposition: Home vs SNF in 1-2 days Team Pager(MD Coverage 07/03): # [phone] PCP: Alphonso Murphy MD [phone] Attestation: IPI Certification I certify that I am a D-H credentialed attending provider with admitting privileges and that the patient meets or has met medical necessity to require an inpatient IPI level of care meeting a minimum of two midnights or is on the [facility] inpatient only procedure list (status C) due to: monitoring of fluidstatus given an inability to regulate fluid balance and the need for administration or restriction of fluids and acute kidney injury necessitating close monitoring of fluid balance such as intravenous fluids and/or titration of medication to achieve optimal effect and minimize the chance of immediate or severe side effects ALVARO LAW MD 01/20/2017 Tomás Riddle PTA - 01/20/2017 3:31 PM EDT Attempted to see patient x2 on this date. Patient Asleep in bed during both visits and deferred tx until tomorrow. Will attempt to see tomorrow as appropriate/available. Tomás Riddle PTA Inpatient Rehab Services Pager:[phone] Liz Guillory OT - 01/20/2017 2:30 PM EDT OT referral received and chart reviewed. Met with pt briefly this afternoon. Pt reported having beenup in chair form most of day/through lunch; just now in bed and sleeping. Educated pt on role of OT and pt reports limited anticipation of OT needs however is open to therapist coming back tomorrow morning when she is more alert/energized to further discuss potential needs. Pt reports anticipated d/c home when medically ready; she feels comfortable with this and PT has also noted pt is ok for home d/c. OT to f/u tomorrow to be sure no OT needs present. Liz Guillory, OTR/L Pager #[phone] Martha Ontiveros RN - 01/19/2017 6:15 PM EDT Pt arrived to [address] room 148 around 1730. A/Ox4. Vitals stable. Family at bedside. No complaints of pain. Will continue to monitor. Huan Morris MD - 01/19/2017 3:23 PM EDT Critical Care Attending Note Author HUAN MORRIS MD Date 01/19/2017 This patient was seen and examined on critical care rounds. 61 year old woman with hypotension and JODY Active Problems: JODY Hypotension Septic shock Painful abd wall hematoma improved Physical Exam Last value Range last 24 hrs Temperature Temp: 37.1 ??C (98.8 ??F) Temp: [36.6 ??C (97.9 ??F)-37.1 ??C (98.8 ??F)] Heart Rate Heart Rate: 70 Heart Rate: [64-90] Blood Pressure BP: 118/68 BP: (76-172)/(40-74) Respiratory Rate Resp: 21 Resp: [19-24] SpO2 SpO2: 96 % SpO2: [89 %-98 %] Admit Weight 183.7 kg Body mass index is 71.19 kg/(m^2). General: Obese lady HEENT: No JVD Respiratory: clear Cardiac: S1 S2 Abdominal: Obese; hematoma (tender) Extremities: + edema Neuro: Non focal Intake/Output Summary (Last 24 hours) at 01/19/17 0907 Last data filed at 01/19/17 0600 Gross per 24 hour Intake 2533 ml Output 3345 ml Net -812 ml Infusions: Norepi 6 Respiratory Support: NC 2L Laboratory/Imaging/Diagnostics (these have been reviewed by me): CTA neg for PE WBC 15.4 Na 133 Normal am cortisol hgb 10.4 Creat 1.3 Past 24 hour events: Bruising from anticoag Assessment, Management, and Decision Making: UTI with septic shock Improved with early abx and fluid resus Pressors weaned I certify that the patient requires inpatient care status as outlined in CMS Guidelines and based on current medical issues, as outlined above. The Critical Care Team is managing these illnesses: Hypotension Req Fluids/Pressors Arterial Renal Disease/Failure Acute with tubular necrosis Septic Shock UTI Huan Morris MD Alvaro Law MD - 01/19/2017 3:22 PM EDT Hospital Medicine Attending Daily Progress Note Admit Date: 01/16/2017 Hospital Day 3 days Active Hospital Problems Diagnosis ??? JODY (acute kidney injury) Resolved Hospital Problems Diagnosis Date Resolved No resolved problems to display. PMH Active Non-Hospital Problems Diagnosis ??? Musculoskeletal chest pain ??? Pleural effusion on right ??? Obesity ??? CIS - Entered not Verified ??? CIS - L knee increasing pain ??? CIS - Aftercare TKAs Inpatient Medications: Scheduled ? ? potassium, sodium phosphates 3 g Oral 4 Times Daily WC & HS ??? cefTRIAXone 2 g Intravenous Q24H ??? heparin (porcine) 8,000 Units Subcutaneous Q8H DEEPTI ??? insulin lispro 1-4 Units Subcutaneous Q4H DEEPTI ??? buPROPion 150 mg Oral Daily ??? citalopram 20 mg Oral Daily ??? fluticasone 1 spray Each Nare Daily ??? sodium chloride 0.9 % 5 mL Intravenous Q12H ??? sodium chloride 0.9 % 5 mL Intravenous Q12H Continuous infusions: PRN: dextrose 50% OR glucagon (human recombinant), ipratropium-albuterol, acetaminophen, polyethylene glycol (MIRALAX)oral powder, senna-docusate, melatonin, sodium chloride 0.9 %, lidocaine, sodium chloride 0.9 %, lidocaine Interval History: No acute events ROS: No CP, no SOB, no n/v, no diarrhea, no constipation Patient has pain in areas of bruising over pannus Physical Exam Vitals Range last 24 hrs Temperature Temp: [36.6 ??C (97.9 ??F)-37.1 ??C (98.8 ??F)] Heart Rate Heart Rate: [64-90] Blood Pressure BP: (76-172)/(38-74) Respiratory Rate Resp: [18-26] SpO2 SpO2: [89 %-99 %] Intake/Output Summary (Last 24 hours) at 01/19/17 1523 Last data filed at 01/19/17 1411 Gross per 24 hour Intake 2270 ml Output 3375 ml Net -1105 ml Patient Vitals for the past 168 hrs: Weight 01/19/17 0000 (!) 182.3 kg (401 lb 14.4 oz) 01/16/17 0109 (!) 183.7 kg (404 lb 15.8 oz) Body mass index is 71.19 kg/(m^2). Morbidly obese Physical Exam Constitutional: She appears well-nourished. No distress. HENT: Head: Atraumatic. Eyes: EOM are normal. Neck: Left IJ in place Pulmonary/Chest: Effort normal. No respiratory distress. Abdominal: Soft. She exhibits distension. There is no tenderness. Extensive bruising present Neurological: She is alert. Skin: Skin is dry. Psychiatric: She has a normal mood and affect. Vitals reviewed. Studies reviewed in eDH. Remarkable for the following: LABS: Last 3 wbc, hgb, hct plt Recent Labs 01/19/17 0400 01/18/17 0400 01/17/17 1200 WBC 12.4* 15.4* 24.0* HGB 9.1* 10.4* 11.5* HCT 26.5* 30.0* 33.1* PLATELET 182 198 265 Last 3 Lytes Recent Labs 01/19/17 0400 01/18/17 1925 01/18/17 1229 NA 135 136 134* K 3.7 3.9 3.8 CL 96* 99 99 CO2 27 25 22 BUN 24* 26* 27* CREATININE 1.00 0.92 0.98 FSBG Trend Recent Labs 01/19/17 0916 01/19/17 0400 01/19/17 0008 01/18/17 2004 01/18/17 1551 01/18/17 1205 01/18/17 0745 01/18/17 0404 01/18/17 0005 01/17/17 1820 POCGLU 134 134 144 188 132 139 169 187 190 232* MICRO: Recent Labs 01/16/17 1200 URINECULTURE Greater than 100,000 cfu/ml Missy albicans* No results for input(s): GRAMSTAIN, BFCX, LOWERRESPCX, TISSUECX in the last 720 hours. Recent Labs 01/16/17 2120 BLOODCX No growth at 2 days. ECG: Recent Labs 01/16/17 2316 DIAGLINE Normal sinus rhythm with sinus arrhythmia Prolonged QT Abnormal ECG When compared with ECG of 16-JAN-2017 17:19, No significant change was found I personally reviewed the tracing and edited the fellows interpretation Confirmed by fellow MD [facility], [facility] ([id number][facility] on 01/17/2017 11:15:43 AM Confirmed by MD Levy, Madan ([id number]) on 01/17/2017 5:42:15 PM QTCCALC 481 VASCULAR: No results for input(s): VBTEXTRPT in the last 720 hours. IMAGIN01/17/17 -- 2nd Read CT Chest from OSH 1. No pulmonary embolism. 2. Mild cardiomegaly. 3. Distended gallbladder. ?? OTHER Studies: 01/17/17 -- TTE 1. Technically limited Optison contrast (one 3 [...] See remainder of report for additional findings. Assessment: 61 y.o. female with morbid obesity, DAVID on BPAP and on 2LPM at home, OSH chart history of COPD and diastolic heart failure who presents here with new JODY and hypovolemic shock +/- sepsis from a possible urinary source. She is now improved with fluid resuscitation s/p an ICU stay, and a re-read of her CT chest shows no PE (therefore no need for anticoagulation). Otherwise will continue ceftriaxone forUTI and monitor on the floor for ongoing improvement. Plan: # JODY, hyperkalemia # Uremic encephalopathy - resolved - Ongoing urine output - Encourage PO intake - No further need for diuretics, would be very judicious with diuresis in future if needed - Schmitt currently in place - Neutraphos QID for phosphate repletion # Severe bruising - No need for lovenox ?? # COPD - unconfirmed diagnosis - Nebs PRN # DAVID / presumed OHS - BiPAP when sleeping # Diastolic heart failure: unconfirmed. No diuretics IV access: PIV Tubes/Drains: Schmitt DVT PPX: Heparin SC Anticipated Disposition: Home vs SNF in 1-2 days Team Pager( Coverage 07/03): # [phone] PCP: Alphonso Murphy MD [phone] Attestation: IPI Certification I certify that I am a D-H credentialed attending provider with admitting privileges and that the patient meets or has met medical necessity to require an inpatient IPI level of care meeting a minimum of two midnights or is on the [facility] inpatient only procedure list (status C) due to: monitoring of fluidstatus given an inability to regulate fluid balance and the need for administration or restriction of fluids and acute kidney injury necessitating close monitoring of fluid balance such as intravenous fluids and/or titration of medication to achieve optimal effect and minimize the chance of immediate or severe side effects ALVARO LAW MD 01/19/2017 Letha Mcintosh LD - 01/19/2017 9:39 AM EDT Clinical Nutrition Initial Evaluation Cyn Prado is a 61 y.o. female Nutrition Plan/Recommendations: Regular diet. Diet education provided to patient. Encourage good po intake. Monitor weight - please weigh pt twice weekly (Tuesday/) Patient Active Problem List Diagnosis Code ??? CIS - Aftercare TKAs ??? CIS - Entered not Verified ??? CIS - L knee increasing pain ??? Obesity E66.9 ??? Pleural effusion on right J90 ??? Musculoskeletal chest pain R07.89 ??? JODY (acute kidney injury) N17.9 Past Surgical History: Procedure Laterality Date ??? [...] / LEFT/AMAN LCCK/AMAN LPS/ANTIBIOTIC CEMENT ProcedureDate: 11/23/2005 Reason for Nutrition Intervention: Advanced to regular diet Diet Order: Regular Appetite: Good Food allergies: No known Chewing/Swallowing difficulty: None Estimated body mass index is 71.19 kg/(m^2) as calculated from the following: Height as of this encounter: 160 cm (5' 3). Weight as of this encounter: 182.3 kg (401 lb 14.4 oz). Admit weight: 183.7 kg Pert. Meds: TUMS, glucagon, insulin, norepinephrine, laxatives Lab Results Component Value Date WBC 12.4 (H) 01/19/2017 HGB 9.1 (L) 01/19/2017 HCT 26.5 (L) 01/19/2017 TRIG 113 01/16/2017 ALT 25 01/16/2017 AST 13 01/16/2017 NA 135 01/19/2017 K 3.7 01/19/2017 CL 96 (L) 01/19/2017 CREATININE 1.00 01/19/2017 BUN 24 (H) 01/19/2017 CO2 27 01/19/2017 INR 1.2 (H) 01/16/2017 CALCIUM 8.2 (L) 01/19/2017 MAGNESIUM 0.70 01/19/2017 PHOS 1.5 (L) 01/19/2017 Pt Interview: Pt reports that she has good appetite now and at baseline. Tolerating PO intake well. Pt is morbidly obese with a BMI of 71. When asked about diet Hx pt reports that she eats whatever I want and has no diet restrictions. When offered education on making healthier choices, pt was very re ceptive to this. This flex o writer operator provided written and verbal education on general healthful nutrition, cooking tips for weight management, and portion sizes and examples of food groups. This flex o writer operator explained how her meals should be compromised in regards to portion sizes of specific food groups, and encouraged snacks that were higher in protein. Pt had no additional questions or concerns at this time, contact information provided. Nutrition to follow. CANDIDO Flor Pager [phone] Сергей Abreu RCP - 01/19/2017 12:07 AM EDT GRAVITY METER OBSERVER NIV Note NIV Settings: NIV Mode: BiPAP IPAP (cmH20): 23 EPAP (cmH20): 19 Pressure Support (cm H2O): 4 NIV Measurements: Resp: 20 Skin Assessment: WDL, no Mepalex applied - chronic user with home device / mask. Assessment: PT is a 61 y/o female admitted with PE, dyspnea, hypotension and JODY. PT uses NIV @ NOC with 5 lpm O2 bleed on home settings. Plan: PT to use home device @ NOC as long as tolerated. (all times approximate) Kaushal Riggs MD - 01/18/2017 10:00 AM EDT HYPERTENSION/ NEPHROLOGY INPATIENT PROGRESS NOTES PATIENT: Cyn Prado : 1955 REASON FOR CONSULTATION: JODY referred by Dr. Garland ID: 61 y.o. female with PMHx significant for morbid obesity, DAVID on BPAP, on 2LPM at home for COPD and diastolic heart failure was recently managed at OSH for SOB which was attributed to heart failure andPE. She stayed there fo 2 weeks and was agressively diuresed. She was also given IV contrast for CT to evaluate her for PE. She was discharged 3 days back. Her creatinine was rising when she was discharged. Base line creatinine < 1 and was > 1.5 when she was discharged. She was urinating less. She stayed home for 2 days and was taken back to hospital again yesterday. At home her urine out was minimal, she urinated just once yesterday despite being in diuretics. Since her arrival here she has not made any urine. She has schmitt cathter in place. She has no Hx of any NSAID intake. No kidney stones. No renal issues per pt in past. She has some back pain. She feels little thirsty. She has no diarrhea. She had 3 episodes of vomiting with blood in it. she denies uremic symptoms including epistaxis,or hiccups. SUBJECTIVE: Patient on pressors. Nonoliguric. Denies shortness of breath. PHYSICAL EXAM: Last value Range last 24 hrs Temperature Temp: 37.1 ??C (98.8 ??F) Temp: [36.8 ??C (98.2 ??F)-37.3 ??C (99.1 ??F)] Heart Rate Heart Rate: 68 Heart Rate: [66-92] Blood Pressure BP: (!) 128/39 BP: (128)/(39) Respiratory Rate Resp: 19 Resp: [19-23] SpO2 SpO2: 94 % SpO2: [94 %-98 %] Appearance - Alert, Comfortable. Morbidly obese Skin - No exanthem. HEENT - Sclera white. Mucous membranes dry. Chest: Lungs clear to ausculatation w/o wheezes/ rhonchi/ crackles. Heart - S1 and S2 clear w/o murmur, gallop, or rub. JVP not elevated. Abd - Soft. + BS. No bruit. Non tender. Ext -Warm. No cyanosis. + dependent edema. Neuro - No asterixis. STUDIES: Labs: CBC: Recent Labs 01/18/17 0400 01/17/17119901/17/17 0215 WBC 15.4* 24.0* 25.1* HGB 10.4* 11.5* 12.0 PLATELET 198 265 281 Chemistry: Recent Labs 01/18/17 0400 01/17/17 18201/17/17 1200 NA 133* 132* 129* K 4.5 4.9 5.1* CL 94* 95* 91* CO2 22 17* 16* BUN 38* 59* 84* CREATININE 1.32* 2.11* 3.29* GLUCOSE 188 219* 167 Recent Labs 01/18/17 0400 01/17/17 1828 01/17/17 1200 01/17/17 0215 01/16/17 2145 CALCIUM 8.4* 7.9* 8.1* < > 7.8* 7.2* MAGNESIUM 0.71 -- -- -- 0.95 0.97 PHOS 2.4* -- -- -- 4.0 5.1* < > = values in this interval not displayed. LFT's: Recent Labs 01/16/175 01/16/17 0332 BILITOT 0.5 0.7 BILIDIR 0.2 0.1 ALBUMIN 2.6* 2.9* ALKPHOS 48 56 ALT 25 30 AST 13 19 Urine microscopy showed normal looking RBCs with granular muddy brown cast IMPRESSION/ RECOMMENDATIONS: Acute kidney injury -ATN (contrast induced nephropathy, sepsis) -Creatinine improving 1.32mg/dL (baseline 0.66mg/dL) -Nonoliguric -Nephrology will sign off. Please call with questions/concerns. -Avoid nephrotoxic agents, daily IN/OUT, renally dose medications Seen and Discussed w/ Dr. Keely Whaley, Nephrology Fellow Pager [phone] Renal Attending: The patient was examined together with the renal fellow and I agree with the above note which accurately reflects our findings and assessment, the patient is recovering from JODY, please call if further assistance is needed, thank you for involving us in the care for this patient Huan Morris MD - 01/18/2017 9:37 AM EDT Critical Care Attending Note Author HUAN MORRIS MD Date 01/18/2017 This patient was seen and examined on critical care rounds. 61 year old woman with hypotension and JODY Active Problems: JODY Hypotension Septic shock Painful abd wall hemaroma Physical Exam Last value Range last 24 hrs Temperature Temp: 37.1 ??C (98.8 ??F) Temp: [36.8 ??C (98.2 ??F)-37.3 ??C (99.1 ??F)] Heart Rate Heart Rate: 68 Heart Rate: [66-92] Blood Pressure BP: (!) 128/39 BP: (128)/(39) Respiratory Rate Resp: 19 Resp: [18-23] SpO2 SpO2: 94 % SpO2: [93 %-98 %] Admit Weight 183.7 kg Body mass index is 71.74 kg/(m^2). General: Obese lady HEENT: No JVD Respiratory: clear Cardiac: S1 S2 Abdominal: Obese; hematoma (tender) Extremities: + edema Neuro: Non focal Intake/Output Summary (Last 24 hours) at 01/18/17 0937 Last data filed at 01/18/17 0800 Gross per 24 hour Intake 96260 ml Output 96081 ml Net -460 ml Infusions: Norepi 6 Respiratory Support: NC 2L Laboratory/Imaging/Diagnostics (these have been reviewed by me): CTA neg for PE WBC 15.4 Na 133 Normal am cortisol hgb 10.4 Creat 1.3 Past 24 hour events: Bruising from anticoag Assessment, Management, and Decision Making: UTI with septic shock Improved with early abx and fluid resus Wean pressors as tolerated ICU housekeeping - Analgosedation: none - Wake up and wean and mobilize: - Thromboprophylaxis: - Vent Bundle: - Ulcer ppx: - Feeding: - Glycemic control: - Bowel regimen : - Indwelling cath/lines - De-escalate abx : - Skin: - PT: -Goals of Care: full code I certify that the patient requires inpatient care status as outlined in CMS Guidelines and based on current medical issues, as outlined above. Is this patient critically ill? Is there a high potential of sudden, clinically significant, or life threatening deterioration? Yes Is there a need for direct personal assessment and management to treat/prevent multiple vital organ failure/deterioration? Yes The Critical Care Team is managing these illnesses: Hypotension Req Fluids/Pressors Arterial Renal Disease/Failure Acute with tubular necrosis Septic Shock UTI I personally performed 35 minutes of aggregate critical care time exclusive of procedures and teaching. This includes time spent during direct patient evaluation and reassessment, interpreting diagnostic tests, directing life and/or organ supporting interventions and documentation on the unit. Huan Morris MD Kaushal Riggs MD - 01/17/2017 12:03 PM EDT HYPERTENSION/ NEPHROLOGY INPATIENT PROGRESS NOTES PATIENT: Cyn Prado : 1955 REASON FOR CONSULTATION: JODY referred by Dr. Garland ID: 61 y.o. female with PMHx significant for morbid obesity, DAVID on BPAP, on 2LPM at home for COPD and diastolic heart failure was recently managed at OSH for SOB which was attributed to heart failure andPE. She stayed there fo 2 weeks and was agressively diuresed. She was also given IV contrast for CT to evaluate her for PE. She was discharged 3 days back. Her creatinine was rising when she was discharged. Base line creatinine < 1 and was > 1.5 when she was discharged. She was urinating less. She stayed home for 2 days and was taken back to hospital again yesterday. At home her urine out was minimal, she urinated just once yesterday despite being in diuretics. Since her arrival here she has not made any urine. She has schmitt cathter in place. She has no Hx of any NSAID intake. No kidney stones. No renal issues per pt in past. She has some back pain. She feels little thirsty. She has no diarrhea. She had 3 episodes of vomiting with blood in it. she denies uremic symptoms including epistaxis,or hiccups. SUBJECTIVE: Patient on pressors. Nonoliguric. PHYSICAL EXAM: Last value Range last 24 hrs Temperature Temp: 37.3 ??C (99.1 ??F) Temp: [36.5 ??C (97.7 ??F)-37.4 ??C (99.3 ??F)] Heart Rate Heart Rate: 88 Heart Rate: [67-89] Blood Pressure BP: (!) 128/39 BP: (51-128)/(24-56) Respiratory Rate Resp: 23 Resp: [17-23] SpO2 SpO2: 94 % SpO2: [90 %-100 %] Appearance - Alert, Comfortable. Morbidly obese Skin - No exanthem. HEENT - Sclera white. Mucous membranes dry. Chest: Lungs clear to ausculatation w/o wheezes/ rhonchi/ crackles. Heart - S1 and S2 clear w/o murmur, gallop, or rub. JVP not elevated. Abd - Soft. + BS. No bruit. Non tender. Ext -Warm. No cyanosis. + dependent edema. Neuro - No asterixis. STUDIES: Labs: CBC: Recent Labs 01/17/1721401/16/17214401/16/17 1455 WBC 25.1* 14.2* 13.2* HGB 12.0 10.0* 10.1* PLATELET 281 205 223 Chemistry: Recent Labs 01/17/1773401/17/1721401/16/172144 NA 128* 128* 127* K 5.1* 5.4* 5.4* CL 91* 89* 88* CO2 16* 17* 20* BUN 97* 109* 124* CREATININE 3.97* 4.96* 6.30* GLUCOSE 154 116 87 Recent Labs 01/17/17 0735 01/17/1721401/16/17214401/16/17 0332 CALCIUM 7.9* 7.8* 7.2* < > 8.6 MAGNESIUM -- 0.95 0.97 -- 1.08* PHOS -- 4.0 5.1* -- 5.1* < > = values in this interval not displayed. LFT's: Recent Labs 01/16/17 2145 01/16/17 0332 BILITOT 0.5 0.7 BILIDIR 0.2 0.1 ALBUMIN 2.6* 2.9* ALKPHOS 48 56 ALT 25 30 AST 13 19 Urine microscopy showed normal looking RBCs with granular muddy brown cast IMPRESSION/ RECOMMENDATIONS: Acute kidney injury -ATN (contrast induced nephropathy, sepsis) -Creatinine improving 3.97mg/dL (baseline 0.66mg/dL) -Nonoliguric -Consider adding sodium bicarbonate to improve metabolic acidosis -Will continue to follow -Avoid nephrotoxic agents, daily IN/OUT, renally dose medications Seen and Discussed w/ Dr. Keely Whaley, Nephrology Fellow Pager [phone] Renal Attending: The patient was examined together with the renal fellow Dr Whaley and I agree with the above note which accurately reflects our findings and assessment, the patient is producing more urine and serum creatinine has decreased, no acute clinical dialysis needs at this time Huan Morris MD - 01/17/2017 10:49 AM EDT Critical Care Attending Note Author HUAN MORRIS MD Date 01/17/2017 This patient was seen and examined on critical care rounds. 61 year old woman with hypotension and JODY Active Problems: JODY Hypotension Septic shock Physical Exam Last value Range last 24 hrs Temperature Temp: 37.3 ??C (99.1 ??F) Temp: [36.3 ??C (97.3 ??F)-37.4 ??C (99.3 ??F)] Heart Rate Heart Rate: 89 Heart Rate: [66-89] Blood Pressure BP: (!) 51/33 BP: (51-116)/(24-89) Respiratory Rate Resp: 18 Resp: [16-23] SpO2 SpO2: 93 % SpO2: [90 %-100 %] Admit Weight 183.7 kg Body mass index is 71.74 kg/(m^2). General: Obese lady HEENT: No JVD Respiratory: clear Cardiac: S1 S2 Abdominal: Obese hematoma Extremities: + edema Neuro: Non focal Intake/Output Summary (Last 24 hours) at 01/17/17 1049 Last data filed at 01/17/17 1000 Gross per 24 hour Intake 6467 ml Output 5520 ml Net 947 ml Infusions: Norepi 38 Respiratory Support: NC 2L Laboratory/Imaging/Diagnostics (these have been reviewed by me): CTA neg for PE WBC 24 Na 130 Normal am cortisol hgb 11 Past 24 hour events: Bleeding from anticoag Assessment, Management, and Decision Making: ICU housekeeping - Analgosedation: - Wake up and wean and mobilize: - Thromboprophylaxis: - Vent Bundle: - Ulcer ppx: - Feeding: - Glycemic control: - Bowel regimen : - Indwelling cath/lines - De-escalate abx : - Skin: - PT: -Goals of Care: full code I certify that the patient requires inpatient care status as outlined in CMS Guidelines and based on current medical issues, as outlined above. Is this patient critically ill? Is there a high potential of sudden, clinically significant, or life threatening deterioration? Yes Is there a need for direct personal assessment and management to treat/prevent multiple vital organ failure/deterioration? Yes The Critical Care Team is managing these illnesses: Hypotension Req Fluids/Pressors Arterial Renal Disease/Failure Acute with tubular necrosis Septic Shock I personally performed 50 minutes of aggregate critical care time exclusive of procedures and teaching. This includes time spent during direct patient evaluation and reassessment, interpreting diagnostic tests, directing life and/or organ supporting interventions and documentation on the unit. Huan Morris MD Amy Marcos E - 01/17/2017 10:01 AM EDT Cheese Sprayer Encounter Note Patient Name: Cyn Prado : [id number] MR#: [id number] Admit Date: 01/16/2017 12:35 AM Hospital Day 1 day Narrative: Cyn was by herself in the room when I entered. She said she had had family visiting yesterday. Merariisseemed tired but in good spirits. She was happy to talk with a general counsel. Our conversation centered around her medical problems and her love of her family. It was clear that Cyn' children and grandchildren were a major source of hillary and meaning for her. She is happy to have one of her sons living at home with her. Assessment: Cyn identified herself as spiritual but not voodoo. She said she had grown up watching pastors on TV on Sundays. When I asked if she prayed, she replied sometimes. She wanted me to pray for her at the end of my visit. Intervention and Outcome: I offered a prayer for Cyn and her healing. This prayer was given at her request. Follow-up: I may try to visit Cyn again in the next couple days. Time in Direct Care: 30 minutes Brandan To 01/17/2017 Luther Handy MD - 01/16/2017 9:58 PM EDT MICU STAFF PROGRESS NOTE Critical Care Medicine Author: LUTHER HANDY Patient seen and examined on admission to critical care for hypotension and renal failure. Morbidly obese woman with sleep apnea who received recent care at [facility] for dyspnea and Pulmonary Emboli (Jay WYLIE). Transferred from [facility] for acute onset renal failure. Transferred within 1 dayto ICU for hypotension Active problems: Hypotension Acute renal failure Obesity History nocturnal hypoventilation Exam: Last value Range last 24 hrs Temperature Temp: 36.9 ??C (98.4 ??F) Temp: [36.3 ??C (97.3 ??F)-36.9 ??C (98.4 ??F)] Heart Rate Heart Rate: 78 Heart Rate: [66-88] Blood Pressure BP: (!) 51/33 BP: (51-146)/(24-123) Respiratory Rate Resp: 20 Resp: [12-22] SpO2 SpO2: 96 % SpO2: [90 %-100 %] Art BP BP (Arterial Line): 74/37 BP (Arterial Line): (74-84)/(37-40) Ventilator: Nasal Cannula Current Drips: Phenylephrine Art line BP 75/30 Opens eyes and answers a few simple questions Morbidly obese Bilateral breath sounds normal Quiet heart sounds Abdomen soft and non tender Schmitt catheter R rad art line Oligoanuric Labs/studies: Lab Results Component Value Date WBC 14.2 (H) 01/16/2017 Hemoglobin 10.0 (L) 01/16/2017 Hematocrit 28.9 (L) 01/16/2017 Platelets 205 01/16/2017 ABG 7.38 / 38 / 77 / 1.2 Na 122, K 5.9, Cr 6.7 EKG SR NAD, Pro BNP 115 Urinalysis blood, white cells, bacteria (few epithelial cells) Size prohibits useful bedside echocardiogram although I think LV contraction looks ok ASSESSMENT, MANAGEMENT, and DECISION MAKING: Renal failure thought to be related to recent contrast and diuretic use. No immediate need for dialysis although is oligur. Her hypotension could conceivably be related to volume depletion and / or sepsis (perhaps urinary source). I considered cardiac impairment but EKG and pro BNP are normal and limited views on echo look ok. I think her confusion is due to uremia. Her normal lactate is somewhat reassuring. Extension of a large PE could cause hypotension but I think she has been on LMWH with renal failure so should have adequate anticoagulation She has begun to make some urine with additional fluids and plan for tonight as follows Goal MAP > 65 Use fluids / norepinephrine to achieve Place LIJ central line Leave RIJ free for dialysis line if needed Ceftriaxone Await urine and blood cultures Anticoagulate with heparin drip (avoid LMWH) Formal echocardiogram in am IS PATIENT CRITICALLY ILL ? Is there a high potential of sudden, clinically significant, or life threatening deterioration? Yes Is there a need for direct personal assessment and management to treat/prevent multiple vital organfailure/deterioration? Yes If this patient is not critically ill, I certify the patient requires continued in-patient hospitalization for [] PATIENT IS CRITICALLY ILL WITH THESE DIAGNOSES BEING MANAGED BY [facility] TEAM: Hypotension Req Fluids/Pressors Arterial Renal Disease/Failure Acute I personally performed 35 minutes of aggregate critical care time exclusive of procedures and teaching. This includes time spent during direct patient evaluation and reassessment, interpreting diagnostic tests, directing life and/or organ supporting interventions and documentation on the unit. Luther Handy MD 01/16/2017 9:58 PM Amanda Giron RT - 01/16/2017 9:27 PM EDT Patient was not started on her BIPAP due to active hemoptysis. 01/16/172118: ABG: pH 7.38, PaCO2 38.3, PaO2 77.5 (on 2Lnc), HCO3 22.1, BE -3 Per patient request and [employer]ILOS[employer]HY PROFESSOR Order Patient placed on Home unit at 2327- Home settings/unit and home O2 01/16/17 2327 Non Invasive Ventilation Data NIV Mode BiPAP NIV Settings O2 Bleed In (LPM) 5 L/min (home flow) IPAP (cmH20) 23 (home settings) EPAP (cmH20) 19 (home settings) NIV Interface Comment Home full face mask Roslyn Obrien RN - 01/16/2017 6:37 AM EDT Patient Name:Cyn Prado [facility] Telemetry Note Diagnosis r/t telemetry: Hyperkalemia Subjective: I feel fine Objective: No cardiovascular s/s Last value Range last 12 hrs Temperature Temp: 36.4 ??C (97.5 ??F) Temp: [36.4 ??C (97.5 ??F)] Heart Rate Heart Rate: 71 Heart Rate: [71] Blood Pressure BP: (!) 135/109 BP: (135)/(109) Respiratory Rate Resp: 12 Resp: [12] SpO2 SpO2: 95 % SpO2: [95 %] Cardiac meds: see MAR Assessment: HR 60-70. No events. Plan: continue tele monitoring, assess hemodynamic tolerance of dysrythmia, see tele strip in patient medical record. documented in this encounter H&P Notes Jabari Connors APRN - 01/16/2017 9:39 PM EDT Critical Care Admission Note Cyn Prado is a 61 y.o. female with a PMH significant for Depression, obesity, DAVID, COPD, PE, diastolic heart failure who [facility], now transferring to the ICU with renal failure, AMS and hypotension. HPI: Cyn Prado is a 61 y.o. female with the above pmhx who was recently hospitalized at [facility] for 3 days due to a newly diagnosed pulmonary embolism and COPD/diastolic heart failure exacerbation. Patient was discharged on enoxaparin on 01/13 with a rising Cr. Once at home she continued to be not feeling well, have malaise and also developed a mild confusion. On 01/15 she presented back to the ED @ [facility] with hemoptysis and hyperkalemia in the setting of a JODY,Cr >5 and BUN >120. [facility] hospitalitis service was consulted for further care and management. On arrival nephrology was consulted, who felt her JODY is likely ATN and SUHAIL and recommended IVF hydration, her hyperkalemia was treated with kayexalate. Earlier this evening patient became hypotensive to the low 70s/30s, and CCS were consulted, patient received 2L IVF boluses and started on a brigido gtt prior to transfer to the ICU. On arrival to the ICU patient remained hypotensive, IV crystalloid bolus given and an arterial line and CVC placed. ROS: See HPI Past Medical History: Diagnosis Date ??? COPD (chronic obstructive pulmonary disease) ??? [...] / LEFT/AMAN LCCK/AMAN LPS/ANTIBIOTIC CEMENT ProcedureDate: 11/23/2005 No family history on file. Social History Narrative None on file Outpatient medications: No current facility-administered medications on file prior to encounter. No current outpatient prescriptions on file prior to encounter. Previous inpatient medications: Allergies Allergen Reactions ??? Iodinated Contrast- Oral And Iv Dye ??? Iodine And Iodide Containing Products CIS - Rash, CIS - Rash ??? Morphine Rash ??? Oxycodone Rash Last value Range last 24 hrs Temperature Temp: 37.1 ??C (98.8 ??F) Temp: [36.3 ??C (97.3 ??F)-37.1 ??C (98.8 ??F)] Heart Rate Heart Rate: 81 Heart Rate: [66-88] Blood Pressure BP: (!) 51/33 BP: (51-146)/(24-123) Respiratory Rate Resp: 22 Resp: [12-22] SpO2 SpO2: 95 % SpO2: [90 %-100 %] Art BP BP (Arterial Line): 79/42 BP (Arterial Line): (74-109)/(37-51) Ventilator Settings: on NC 2L Physical Exam: General: Hard of hearing no acute distress HEENT: Normocephalic, trach is midline, MMM Neuro: Lethargic, Oriented x 3, PERRL Pulmonary: Chest wall symmetrical, Expiratory wheezes bilaterally. Cardiovascular: RRR, no murmur/gallop/rub appreciated. Abdomen: Obese, soft tender to touch large superficial hematomas : Schmitt in place/ draining Dark urine Extremities: Warm, palpable pulses, Skin: bruising on ABD Labs: Last 3 wbc, hgb, hct plt Recent Labs 01/16/17214401/16/17145401/16/17 0332 WBC 14.2* 13.2* 14.7* HGB 10.0* 10.1* 11.1* HCT 28.9* 29.3* 32.1* PLATELET 205 223 227 Last 3 Lytes Recent Labs 01/16/17214401/16/17145401/16/17 1006 NA 127* 122* 123* K 5.4* 5.9* 6.3* CL 88* 83* 83* CO2 20* 21* 23 BUN 124* 132* 132* CREATININE 6.30* 6.67* 6.51* Last 3 LFTs Recent Labs 01/16/17214401/16/17 0332 AST 13 19 ALT 25 30 ALKPHOS 48 56 BILITOT 0.5 0.7 BILIDIR 0.2 0.1 Last Ca, Mg, Phos Recent Labs 01/16/172144 CALCIUM 7.2* PHOS 5.1* Last 3 Coags Recent Labs 01/16/17214401/16/17 0332 PT 15.4* 15.7* INR 1.2* 1.2* PTT 38* 50* Last 3 ProBNP, Trop, CK Recent Labs 01/16/17214401/16/17 0332 CK 64 -- TROPONINT <0.03 -- PROBNP -- 115 Microbiology: Blood-pending UA w Reflex Cx- pending EC lead ECG -NSR Imaging: CXR 01/16 IMPRESSION ?? 1. Left-sided IJ catheter terminating at the cavoatrial junction. No pneumothorax. 2. Bilateral, right greater than left, patchy opacities are nonspecific and could represent edema and atelectasis. However, an underlying infectious/inflammatory process cannot be excluded. 3. Trace effusion within the right minor fissure. Assessment: Cyn Prado is a 61 y.o. female with a PMH significant for obesity, DAVID, COPD, PE, diastolic heart failure who transferred from [facility] to the hospitalitis service with renal failure, now transferring to the ICU with renal failure, AMS and hypotension. Her JODY is likely due to ATN (over diureses) and SUHAIL (from IV contrast received for CTA). Her AMS is likely related to her elevated BUN levels (uremic encephalopathy). Its unclear what is the cause of her hemoptysis (PE vs anticoagulation ora infectious process) CXR is inconclusive. Her hypotension is likely secondary to over diuresis and volume depletion, however I can not rule out a cardiac cause or sepsis. Her ECG is negative and cardiac enzymes are negative, there may be right sided impairment in the setting of her recent PE. She maybe septic as she has a mild leukocytosis and a dirty UA that reflexed to culture. For now will continue with aggressive IVF hydration due to JODY and volume depletion, will continue to monitor sodium levels not to correct to quickly, will consider a heparin gtt for her PE but risks may outweigh benefitswith her hemoptysis and hematomas. Will also get a formal TTE and start broad spectrum abx zosyn. Plan: Neuro: AMS/Uremic encephalopathy ?? Tylenol for pain ?? Hold home gabapentin ?? Hold home wellbutrin and Celexa ?? Hold zolpidem Pulm:COPD/DAVID/OHVS/Hemoptysis ?? Hold prednisone ?? Start Duonebs ?? Albuterol for hyperkalemia ?? Nocturnal NIV ?? CXR CV: Hypotension/ DHF ?? Start brigido ?? Art line ?? Place central line ?? Levo once CVC is placed ?? Hold home TONE due to hypotension and JODY ?? Formal TTE ?? Cardiac enzymes-negative ?? proBNP-negative ?? 12 lead ECG-no changes GI: No active issues ?? Clears for now ?? LFTs ?? Protonix for GI ppx Renal/FEK: Renal failure ATN/JODY/SUHAIL Hyperkalemia/hyponatremia ?? Renal consulted ?? Cont IV hydration ?? Renal US pending ?? Hold Home diuretics (metolazone/Spironolactone) ?? Serial BMP ?? Kayexalate given on floor-> repeat @ 5.4 ?? Sodium correction 8-10 mmol for 24hr period ?? FeUrea Hematology: PE/superficial Hematoma ABD ?? On chemical anticoagulation at home ?? Severe pain at previous lovenox injection sites ?? Hold lovenox ?? Consider heparin gtt ?? Anti-Xa level before starting heparin gtt ID: Leukocytosis/possible UTI ?? UA dirty reflexed to cx ?? Start zosyn ?? Blood cultures-pending Endocrine: No active issues ?? Check BG Other prophylaxis: Heparin for DVT prophylaxis No chemical GI prophylaxis needed HOB > 30 Chlorhexidine mouth care Mepliex to sacrum PT/OT: Lines/Tubes/Drains: Consults: Renal Decision Making:Self Code Status:Full Disposition: ICU JABARI CONNORS APRN January 17, 2017 Critical Care Green Team (pager [phone]) Dr. Sloan is the attending of record for this admission Alvaro Law MD - 01/16/2017 1:09 AM EDT Inpatient Hospital Medicine - Admission Note Admitted 01/16/2017 HPI This is a 61 y.o. female with morbid obesity, DVAID on BPAP, presumed hypoventilation, on 2LPM at home, OSH chart history of COPD and diastolic heart failure and PE with recent admission who presents in transfer from [facility] with new renal failure. She was initially seen over 2 weeks ago at [facility] and reportedly admitted for SOB for about 3 days. She was discharged but returned immediately after again for SOB. Per verbal report from OSH, she was treated as COPD/ diastolic heart failure. Her med rec shows abx being prescribed near discharged as well. She cannot say what it was except that she was very wheezy, in the ICU for the first week of hospitalization needing BPAP, and then on the regular floor for the second week. She does believe they hadincreased her diuretics so that she was urinating a lot- reports being 428 lbs prior to that admission and being 392 lbs now. Early on she was also apparently diagnosed with PEs and started on enoxaparin early in her stay. Her breathing did improve nicely but she reported being completely wiped out atthe time of discharge on 01/13 (of note, verbal report was that she left earlier than was advised). She continued to be very tired at home though breathing remained good. She had follow-up labs done with Cr now greater than 5 and I am told it was less than 1 during her recent stay; I don't have any of the records from that stay. Thus she was called to present to the ER. At the [facility] ER, labs were repeated with Cr 5.9 (as below). No ECG changes associated with her K 5.9.She felt she urinated at least 1 cup urine this morning (no changes in urine appearance), then a schmitt was placed at the ER with ~200 mL reported out. She has also noted she has oozing blood from her multiple IV sticks over the last few weeks, and significant (painful) increase in bruising over her abdomen where she has been giving herself 180 mg BID of enoxaparin. She does feel confused, very tired,and also complains of some twitches. Denies any flank pains. No blood in her stool or urine. Denies taking any form of NSAIDs. Had been eating/drinking as usual. ROS Pertinent positives per HPI. All other systems reviewed and negative. Home Meds No current facility-administered medications on file prior to encounter. Current Outpatient Prescriptions on File Prior to Encounter Medication Sig Dispense Refill ??? furosemide (LASIX) [...] MG = 1 Tablet(s), PO, Twice daily Past Medical & Surgical Hx Patient Active Problem List Diagnosis Code ??? CIS - Aftercare TKAs ??? CIS - Entered not Verified ??? CIS - L knee increasing pain ??? Obesity E66.9 ??? Pleural effusion on right J90 ??? Musculoskeletal chest pain R07.89 Social Social History Social History ??? Marital status: Single Spouse name: N/A ??? Number of children: N/A ??? Years of education: N/A Social History Main Topics ??? Smoking status: Former Smoker Packs/day: 3.00 Years: 40.00 Quit date: 10/08/2010 ??? Smokeless tobacco: Not on file ??? Alcohol use Not on file ??? Drug use: Not on file ??? Sexual activity: Not on file Other Topics Concern ??? Not on file Social History Narrative Gets around with a walker at home until she is too tired then goes to her WC. Anytime outside of thehouse she will use her WC. Family Mother with ovarian cancer. Father with brain cancer. Everyone in her family had diabetes. Objective Last Value 24 Hour Range Temperature Temp: -- Heart Rate Heart Rate: -- Blood Pressure BP: -- Respiratory Rate Resp: -- SpO2 SpO2: -- Oxygen: 2LPM Physical Exam General Tired appearing, slowed speech and hard of hearing. Generally appropriate responses. ENT MMM, large neck. Small dried blood around nares Cardio Distant, appears regular. Could not appreciate murmur. Resp Not in significant resp distress. Poor to fair air movement, exp wheezing. Limited by habitus. GI Obese, tender superficially over areas of ecchymoses Musculo S/p bilateral TKA, no obvious joint swelling though limited by habitus Skin Significant large ecchymotic patches over lower abdomen, R>L. No areas of active bleeding but some oozing. RLQ in particular is tender even to light touch. Skin is dry, warm, no mottling. Decreased turgor in BLE. Lymph Does not appear to have edema though limited by habitus. Pertinent Labs From [facility]: 12.9 14.7 H/H 264 124 86 132 Glc Ca 8.7 5.9 30.7 5.92 Mg Phos 7.1 3.0 0.8 24 47 AP 124 INR 1.1 UA: SG 1.025. PH5. No LE or nitrites. No glucose, ketones, protein, blood. Imaging None. Assessment & Plan Cyn Prado is a 61 y.o. female with a history of morbid obesity, DAVID on BPAP, presumed hypoventilation, on 2LPM at home, possible COPD, dCHF, recent PNA, PE on enoxaparin with recent 2-week admissionto [facility] who presents with new renal failure. # JODY By report, her Cr was < 1 at the time of discharge, a mere 3-4 days away. Her history of recent admission with significant diuresis (30 lbs) suggests a pre- renal etiology. Her labs do not conflict with this as they show hyponatremia, hypochloremia, and interestingly an elevated bicarb (I presume some baseline hypercarbia given her obesity and DAVID, though could also have been residual volume contraction from recent diuresis) rather than a decreased bicarb. Probably worsened further by lisinopril. Still waiting for records from [facility] which should help in determining if this is the cause. A bedside US at the OSH did not show hydro though was technically limited d/t her habitus. It sounds like she is still making some urine though it is unclear how much so this will be monitored closely since she may easily go the wrong direction and potentially require dialysis. ?? F/u [facility] records ?? Start IVF ?? Continue schmitt, I/O, daily weights ?? Following BMP q12 ?? Hold diuretics and ACEi # Uremic encephalopathy / toxic metabolic: due to her JODY, plus some med accumulation probably (gabapentin for One). Holding gabapentin. # Hyperkalemia: also d/t JODY, and her home potassium, spironolactone, lisinopril. NO ECG changes. Should improve if urine picks up but may need temporizing therapy. Monitor on telemetry. # PE: unclear how this diagnosis was made. She is too large for the CT scanner by report. Regardless, given her severe JODY, enoxaparin is no longer appropriate. Holding it for now, if no serious bleeding may consider heparin drip in the next 1-2 days (assuming can confirm PE diagnosis). # Severe bruising: d/t aspirin and lovenox. Holding lovenox as above. Unclear why she is on ASA 325 BID, holding as well. Her pain seems to be superficial and related to the hematoma forming in her adipose. Will need close monitoring given the extent. Does not seem to have any deeper pains to suggest rectus sheath or RP bleeding. # COPD: unconfirmed. Continue nebs PRN. # DAVID / presumed OHS: continue BPAP any time when sleeping. # Diastolic heart failure: unconfirmed. Holding diuretics as above. # Other ?? Admit status: inpatient ?? Code status: FULL ?? IVF: NS ?? Diet: low K ?? VTE ppx: NONE given accumulated enoxaparin ?? PCP: Alphonso Murphy MD [phone] Nakul Oneal Garland Pager #[phone] Hospital Medicine IPI Certification I certify that I am a [facility] credentialed attending provider with admitting privileges and that the patient meets or has met medical necessity to require an inpatient IPI level of care meeting a minimum of two midnights or is on the [facility] inpatient only procedure list (status C) due to: acute kidney injury necessitating close monitoring of fluid balance such as intravenous fluids and/or titration of medication to achieve optimal effect and minimize the chance of immediate or severe side effects Addendum: After nephrology consultation and further lab review, the current prevailing theory is that the patient was overdiuresed. Will fluid resuscitate and monitor. OSH was contacted for records but it seems likely that d/c summary is not yet available. Will continue to pursue further documentation as we treat Cyn. ALVARO LAW MD 01/16/2017 documented in this encounter Procedure Notes Isidoro De Leon MD - 01/17/2017 6:52 AM EDTProcedure(s): CENTRAL LINE Central Line Placement Procedure Note Items highlighted in red are State Reported items for central line compliance documentation. Procedure Diagnosis: hypotension Risks and Benefits reviewed: No Informed Consent obtained: No Reason for insertion: new central line Time out performed and documented: yes Hand Hygiene performed: Yes Skin prepped with: chlorhexidine Skin prep agent completely dry at time of first puncture: yes 5 ml of 1% lidocaine was used for local anesthesia. Sterile drape: large sterile drape used Mask/eye shield: mask/eye shield used Large sterile gown: large sterile gown used Sterile gloves: sterile gloves used Cap worn: cap worn Ultrasound guidance used for insertion: Yes Kit type used: An 18 Ga. X 2.5 inch needle was placed in vein after blood return identified. Guided by a 0.032 inch diameter guide wire, a 7 Fr., 3 lumen Catheter 20 cm in length antibiotic impregnatedcatheter was inserted using the Seldinger Technique. Catheter type: CVL Tunneled/Non Tunneled: non tunneled Insertion Site: jugular (internal) Insertion Side: left Number of attempts: 2 Insertion successful: Yes Catheter sutured at the skin at: 20 cm . Sterile dressing: Chlorhexidine Tegaderm Findings: Patient tolerated procedure well. Complications: No Complications. Chest X-ray ordered: yes Patient location at time of insertion: [address] Procedure Comments: Isidoro De Leon MD Associated attestation - Luther Handy MD - 01/17/2017 8:03 AM EDT I was the attending physician supervising the resident in the above care and I was not present for the hickman components of the procedure. MD Milagro Chaves Janos, APRN - 01/17/2017 1:14 AM EDTAssociated Order(s): INSERT ARTERIAL LINE Procedure(s): INSERT ARTERIAL LINE Pre-Procedure Diagnose(s): Hypotension, unspecified hypotension type Post-Procedure Diagnose(s): Hypotension, unspecified hypotension type (No note.)Arterial Line Placement Procedure Note Indication for Procedure: Arterial line was placed for invasive blood pressure monitoring, arterial blood gases, access and blood sampling for laboratory test. Procedure Diagnosis: Hypotension Location of Procedure: Critical Care. Risks and Benefits: The risks and benefits of this procedure were reviewed and informed consent was obtained. Time Out: Prior to the start of the procedure, the patient's identity, intended procedure, site/side, correct patient positioning and presence of the site zaida was confirmed as applicable. The medical history and chart were reviewed to rule out potential contraindications to the planned procedure. Hand Hygiene: The battery vent plug inserter did perform hand hygiene prior to arterial line insertion. Procedure Prep: Sterile draping was applied. Skin was prepped with chlorhexidine. 3 ml of 1% Lidocaine was used for local anesthesia. Procedure Details: A 20 gauge, 2 inch catheter was placed in the right radial artery and secured with steri-strips. Tegaderm was applied. Ultrasound was used for guidance. Guide wire was used in this procedure. The guide wire had a diameter of .018 inches. There were 2 attempts. Findings: There were no procedure complications. Blood was drawn with ease. Good wave form. Procedure Comments: No significant events during the procedure. documented in this encounter Miscellaneous Notes Plan of Care - Liz Guillory OT - 01/21/2017 3:31 PM EDT Problem: Patient Care Overview Goal: Plan of Care Review Outcome: Ongoing (Interventions Implemented as Appropriate) 01/21/17 1527 Coping/Psychosocial Plan Of Care Reviewed With patient Occupational Therapy Evaluation Pertinent History of Current Problem: 61 y.o. female with morbid obesity, DAVID on BPAP, presumed hypoventilation, on 2LPM at home, OSH chart history of COPD and diastolic heart failure and PE with recent admission who presents in transfer from [facility] with new renal failure. Precautions/Restrictions: fall Precautions Comments: activity as tolerated Social Hx: Pt lives with family but notes she is home alone at times. Has WC and rollator and uses both in the home; WC used outside of the home. Uses home O2 at 2L during the day per report; uses BiPAP at night. Assessment: Pt has been seen by OT for evaluation, please refer to associated flowsheet data for details. Pt demonstrates the ability to perform basic ADL???s and mobility at her baseline level of function. Open to AE from therapist for low body dressing; demonstrated functionality with basic ADLs andmobilized around room, primarily to humor therapist. Ok for d/c home when medically ready. Do not anticipate further OT needs. Therapy Frequency: evaluation only Anticipated Equipment Needs at Discharge: (has necessary equipment) Anticipated Discharge Disposition: home with assist Pager: [phone] LIZ GUILLORY OT 01/21/2017 Occupational Therapy Rehabilitation Department 2017 OT Evaluation Code Rationale: ?? Diagnosis & Pertinent Co-Morbidities affecting Plan of Care: see PMHx above ?? Clinical presentation: Stable Evolving Unstable x ?? Occupational Profile & Client History: Brief Expanded Extensive x ?? Assessment of Occupational Performance: 1-3 performance deficits x 3-5 performance deficits 5 + performance deficits Clinical decision making of low complexity using standardized patient assessment instrument and measurable assessment of functional outcome. Plan of Care - Heidi Estrada RN - 01/21/2017 3:20 PM EDT Problem: Patient Care Overview Goal: Plan of Care Review Outcome: Ongoing (Interventions Implemented as Appropriate) 01/20/17 1719 01/21/17 0941 Coping/Psychosocial Plan Of Care Reviewed With -- patient Plan of Care Review Progress improving -- OUTCOME EVALUATION NOTE: OUTCOME SUMMARY: Cyn was A&Ox4. Refused to state her name but gave her . Vital signs stable. Stable on assessment. Bruising and tenderness throughout lower abdomen from reported lovenox shots at an OSH. Difficult to assess edema, but stated she feels puffier than usual. Continued to have small amounts of blood tinged sputum in morning. Refusing bed alarm. Ambulates from the chair to the bed with a walker. Calm and cooperative as shift went on. Will continue to monitor. PLAN MOVING FORWARD: Antibiotic administration, fall prevention, prepare for discharge INDIVIDUALIZED FALL PREVENTION INTERVENTIONS: Patient-specific fall risk factors per assessment: [current deficits]: Use of walker, generalized weakness, O2 devices and IV sites Assistance [level of assistance required for transfers and ambulation]: Refuses assistance, 1 stand by with walker Supervision [direct monitoring required during toileting and ADLs]: Eyes on Surveillance [continuous indirect monitoring]: Bed alarm refused, room near unit station Patient-specific fall prevention interventions for sensory deficits provided, if applicable: [X] N/A CPG GOAL OUTCOME EVALUATION: Patient Refusal of Care - Heidi Estrada RN - 01/21/2017 11:19 AM EDT Patient refusing to use the bed alarm. The reason pt gave for this refusal was I don't need it. If you put it on I won't sit in the bed I'll sit on the toilet and wont get up. Nursing actions taken during this shift to address patient???s refusal included Education about importance of care Plan to address patient???s refusal include Discuss with primary team. Plan of Care - Esther Colon RN - 01/21/2017 5:34 AM EDT Problem: Patient Care Overview Goal: Plan of Care Review Outcome: Ongoing (Interventions Implemented as Appropriate) 01/20/17 1719 01/20/172029 Coping/Psychosocial Plan Of Care Reviewed With -- patient Plan of Care Review Progress improving -- OUTCOME EVALUATION NOTE: OUTCOME SUMMARY: Pt calm and cooperative with care, however had a flat affect when interacting with.Pt denied pain or SOB. Pt had some coughed up some bloody sputum similar to what she has been producing previously. Pt received one dose of IV magnesium. Pt up to bathroom with 1 assist and walker, which she tolerated well. Pt continued on 2 L NC with oxygen sats in the mid to high 90's. Pt slept in between care. Will continue to monitor. PLAN MOVING FORWARD: Preparing for discharge INDIVIDUALIZED FALL PREVENTION INTERVENTIONS: Patient-specific fall risk factors per assessment: [current deficits]: High falls risk, oxygen tubing, IV sites Assistance [level of assistance required for transfers and ambulation]: 1 assist with walker Supervision [direct monitoring required during toileting and ADLs]: arms reach Surveillance [continuous indirect monitoring]: Purposeful rounding, room near nurses station Patient-specific fall prevention interventions for sensory deficits provided, if applicable: [X] Yes Plan of Care - Jackie Fleming RN - 01/20/2017 5:34 PM EDT Problem: Patient Care Overview Goal: Plan of Care Review 01/20/17 1719 Coping/Psychosocial Plan Of Care Reviewed With patient Plan of Care Review Progress improving OUTCOME EVALUATION NOTE: OUTCOME SUMMARY: Patient up to bathroom and chair throughout the day. Patient declined to work with PT and OT today; patient sleeping intermittently throughout the day. Patient denies pain. Will continue to monitor. PLAN MOVING FORWARD: -Mobilize INDIVIDUALIZED FALL PREVENTION: Fall Score: 35 Baseline mobility: Independent Assistance: -standby-assist with walker Supervision: -Eyes-on for all transfers and ambulation Surveillance: -Patient refuses Bed Alarm/Chair Alarm -Purposeful Rounding -Team Care -Bedside Nurse Knowledge Exchange CPG OUTCOME EVALUATION: Med Student Progress Note - Edin Imani L - 01/20/2017 7:07 AM EDT Inpatient Medicine Progress Note HD4 JDOY, ?UTI Patient ID: Cyn Prado is a 61 y.o. female with morbid obesity, DAVID on BPAP, presumed hypoventilation, on 2LPM at home, possible COPD, HFpEF, recent PNA, and thought to have PE on enoxaparin during recent hospitalization though on re- read of CT no PE, who presented with new renal failure and hypovolemic shock +/- sepsis from ?UTI. Transferred to floor following stabilization in ICU with fluid resuscitation. Subjective: Per RN notes: increased fatigue, SOB after ambulating to bathroom. BPAP o/n. Void multiple times on.BRIE o/n. Per pt, feeling well and no SOB except FRY when ambulated to bathroom (does not normally experience this). Resting comfortably now. Still coughing up blood. Abdomen less tender today. Wonders about firm spots on abdomen. ROS: Denies fevers/chills, chest pain, shortness of breath, diarrhea/vomiting/abdominal pain/constipation, muscle aches or weakness. Vitals: VSS. Afebrile. Normotensive with a few soft BP reads, low DBP. 5L BPAP, otherwise stable on 2L NC. Net I/O: +500ml. Last value Range last 24 hrs Temperature Temp: 36.8 ??C (98.2 ??F) Temp: [36.4 ??C (97.6 ??F)-36.9 ??C (98.4 ??F)] Heart Rate Heart Rate: 79 Heart Rate: [70-82] Blood Pressure BP: 106/51 BP: (89-128)/(38-77) Respiratory Rate Resp: 22 Resp: [18-26] SpO2 SpO2: 98 % SpO2: [96 %-99 %] Ins/Outs: Intake/Output Summary (Last 24 hours) at 01/20/17 1046 Last data filed at 01/20/17 0836 Gross per 24 hour Intake 1370 ml Output 575 ml Net 795 ml Patient Vitals for the past 168 hrs: Weight 01/19/17 0000 (!) 182.3 kg (401 lb 14.4 oz) 01/16/17 0109 (!) 183.7 kg (404 lb 15.8 oz) Physical Exam: General: obese, well appearing, in NAD Cardiac: RRR, nl s1 and s2, no m/r/g Pulmonary: diffuse inspiratory/expiratory rhonchi R>L, occasional wet cough, one episode of half-dollar sized hemoptysis during exam Abdomen: diffuse areas of ecchymosis across abdomen, RLQ and LUQ areas of firmness in midst of ecchymosis, NABS Extremities: warm, b/l LE non-pitting edema, without cyanosis or erythema Labs: No new labs... Recent Labs 01/19/17 0400 01/18/17 0400 01/17/17 1200 WBC 12.4* 15.4* 24.0* HGB 9.1* 10.4* 11.5* PLATELET 182 198 265 Recent Labs 01/19/17 0400 01/18/17 1925 01/18/17 1229 NA 135 136 134* K 3.7 3.9 3.8 CL 96* 99 99 CO2 27 25 22 BUN 24* 26* 27* CREATININE 1.00 0.92 0.98 Recent Labs 01/19/17 0400 01/18/17 1925 01/18/17 1229 01/18/17 0400 01/17/17 0215 CALCIUM 8.2* 8.3* 7.9* 8.4* < > 7.8* MAGNESIUM 0.70 -- -- 0.71 -- 0.95 PHOS 1.5* -- -- 2.4* -- 4.0 < > = values in this interval not displayed. Recent Labs 01/16/175 01/16/17 0332 AST 13 19 ALT 25 30 ALKPHOS 48 56 BILITOT 0.5 0.7 BILIDIR 0.2 0.1 Recent Labs 01/16/172144 TROPONINT <0.03 CK 64 Recent Labs 01/17/17 1307 01/16/17 2119 PHART 7.41 7.38 [id number] 26* 38 PO2ART 92 78* [id number] 16.2* 22.1 Microbiology: 01/16 BCx: NGTD 01/16 UCx: >100k missy albicans Imagin01/17/[address] Chest: IMPRESSION 1. No pulmonary embolism. 2. Mild cardiomegaly. 3. Distended gallbladder. 01/17/17 TTE: 1. Technically limited Optison contrast (one 3 [...] See remainder of report for additional findings. 01/17/17 US Retroperitoneal: IMPRESSION Highly limited study due to patient's body habitus andinability. No hydronephrosis. 01/16/17 CXR PA: IMPRESSION 1. Left-sided IJ catheter terminating at the cavoatrial junction. No pneumothorax seen. 2. Bilateral, right greater than left, patchy opacities are nonspecific and could represent edema and atelectasis. However, an underlying infectious/inflammatory process cannot be excluded. 3. Trace effusion within the right minor fissure. Inpatient Medications: MAR reviewed. Of note: -bupropion 150, citalopram 20 -IV ceftriaxone day 2 (01/19--) -SQH -Neutra-Phos qid w meals and nightly -s/p IV vanc x2d (01/17-01/18), zosyn x4d (01/16-01/19) Assessment/Plan: Cyn Prado is a 61 y.o. female with morbid obesity, DAVID on BPAP, presumed hypoventilation, on 2LPMat home, possible COPD, possible diastolic HF, recent PNA, and thought to have PE on enoxaparin during recent hospitalization though on re-read of CT no PE, who presented with new renal failure and hypovolemic shock +/- sepsis from ?UTI. Transferred to floor following stabilization in ICU with fluid resuscitation. #hemoptysis: likely 2/2 small trauma from cough d/t atelectasis and recent supratherapeutic lovenox.H/H downtrending, will monitor until stabilize. -trend H/H -dc SQH x1 day -watch and wait #possible sepsis from possible UTI: UCx only w missy, NGTD BCx -s/p IV vanc x2d (01/17-01/18), zosyn x4d (01/16-01/19) -IV ceftriaxone day 2 (01/19--) -will complete total of 7d antibiotic coverage for possible UTI and possible PNA #JODY, hyperkalemia, uremic encephalopathy -encourage PO intake -neutraphos QID for phosphate repletion #Abdominal ecchymosis: less tender today, gradually improving -lovenox stopped #COPD: unconfirmed -nebs prn -PFTs as outpt #DAVID -bpap qhs #?dHF: E:e' = 8.5 on TTE, caution with diuresis # Other - DVT ppx: dc SQH x1d - Diet/Fluids: regular diet - Access: pIV - Code Status: full - Dispo: floor status pending clinical course Imani Roman Edin [facility] M3, Internal Medicine Pager - [phone] Team Pager [phone] 01/20/2017 Plan of Care - Olga Anna RN - 01/20/2017 2:32 AM EDT Problem: Skin Integrity Impairment, Risk/Actual (Adult) Goal: Skin Integrity/Wound Healing Patient will demonstrate the desired outcomes by discharge/transition of care. Outcome: Ongoing (Interventions Implemented as Appropriate) 01/19/17 0822 Skin Integrity Impairment, Risk/Actual (Adult) Skin Integrity/Wound Healing making progress toward outcome OUTCOME EVALUATION NOTE: OUTCOME SUMMARY: Pt. A&O. VSS. Pt. Did not complain of pain or SOB. Pt. Had increased fatigue and SOB after ambulating to bathroom. Pt's. Lower abdomen is very bruised from home heparin injections. Pt. Remained on Bipap overnight. Pt. Able to void multiple times overnight. No s/s of fluid retention at this time post schmitt removal. No acute events overnight. Will continue to monitor. PLAN MOVING FORWARD: Monitor VSS, continue per plans, labs INDIVIDUALIZED FALL PREVENTION INTERVENTIONS: Patient-specific fall risk factors per assessment: [current deficits]: Generalized weakness, obesity, use of ambulatory aid Assistance [level of assistance required for transfers and ambulation]: SBA with walker Supervision [direct monitoring required during toileting and ADLs]: Eyes on Surveillance [continuous indirect monitoring]: Room near RN station, masimo, bed alarm set Patient-specific fall prevention interventions for sensory deficits provided, if applicable: [X] N/A CPG GOAL OUTCOME EVALUATION: Plan of Care - Radha Lockett, PT - 01/19/2017 3:10 PM EDT Problem: Patient Care Overview Goal: Plan of Care Review Outcome: Ongoing (Interventions Implemented as Appropriate) 01/19/17 1510 Coping/Psychosocial Plan Of Care Reviewed With patient Plan of Care Review Progress progress toward functional goals as expected Physical Therapy Assessment Pt seen for skilled PT Treatment Number: 2 Please see the Rehab Evaluation Summaries report for objective data and specifics of today???s session. Patient demonstrated excellent overall function fairlyconsistent with her baseline abilities. Although she is not walking long distances - she was able tomobilize upright and ambulate only with a walker and CTG. Continue to anticipate no further PT needsupon d/c home. Pertinent History of Current Problem: 61 y.o. female with morbid obesity, DAVID on BPAP, presumed hypoventilation, on 2LPM at home, OSH chart history of COPD and diastolic heart failure and PE with recent admission who presents in transfer from [facility] with new renal failure. Staff communication/Mobility Recommendations: ?? Pt. To ambulate with supervision and RW Precautions/Restrictions: fall Anticipated Physical Therapy Frequency: 3-5 times/wk Anticipated Discharge Disposition: home Pager: [phone] RADHA LOCKETT, PT 01/20/2017 Inpatient Physical Therapy Problem: Acute Rehab Services Goal & Intervention Plan Goal: Bed Mobility Goal Stand Alone Therapy Goal Outcome: Ongoing (Interventions Implemented as Appropriate) 01/18/17 1556 Bed Mobility Goal Bed Mobility Goal, Date Established 01/18/17 Bed Mobility Goal, Time to Achieve 2 wks Bed Mobility Goal, Activity Type all bed mobility activities Bed Mobility Goal, Roane Level independent Bed Mobility Goal, Outcome Achieved goal ongoing Goal: Gait Training Goal Stand Alone Therapy Goal Outcome: Ongoing (Interventions Implemented as Appropriate) 01/18/17 1556 Gait Training Goal Gait Training Goal, Date Established 01/18/17 Gait Training Goal, Time to Achieve 2 wks Gait Training Goal, Roane Level independent Gait Training Goal, Assist Device walker, rolling Gait Training Goal, Distance to Achieve x20' Gait Training Goal, Outcome goal ongoing Goal: Strength Goal Stand Alone Therapy Goal Outcome: Ongoing (Interventions Implemented as Appropriate) 01/18/17 1556 Strength Goal Strength Goal, Date Established 01/18/17 Strength Goal, Time to Achieve 2 wks Strength Goal, Additional Goal Independent with HEP Strength Goal, Outcome goal ongoing Goal: Goal Transfer Training Stand Alone Therapy Goal Outcome: Ongoing (Interventions Implemented as Appropriate) 01/18/17 1556 Goal Transfer Training Transfer Training Goal, Date Established 01/18/17 Transfer Training Goal, Time to Achieve 2 wks Transfer Training Goal, Activity Type iso-ss-alcet/dtudb-ol-ymt;xju-ar-mibpt/gbfxc-zu-cmv Transfer Train Goal, Roane Level independent Transfer Training Goal, Assist Device walker, rolling Transfer Training Goal, Outcome goal ongoing Patient Refusal of Care - Denisse Grider RN - 01/19/2017 4:19 AM EDT Patient refusing to be turned or repositioned in bed and refused to allow nursing to assess skin on her back. The reason pt gave for this refusal was she doesn't have any sores on her back, she will be getting up tomorrow, and she is uncomfortable with pillows on the side of her. Nursing actions taken during this shift to address patient???s refusal included educating pt about importance of repositioning in the bed in order to prevent pressure ulcer and skin break down. Plan to address patient???s refusal include education, encouraging repositioning independently usingtrapeze bar. Plan of Care - Denisse Grider RN - 01/19/2017 4:18 AM EDT Problem: Patient Care Overview Goal: Plan of Care Review Outcome: Ongoing (Interventions Implemented as Appropriate) 01/19/17 0413 Coping/Psychosocial Plan Of Care Reviewed With patient Plan of Care Review Progress improving OUTCOME EVALUATION NOTE: OUTCOME SUMMARY: Pt alert and oriented x4. Remained on vasopressin at .04U/min and levophed was titrated to maintain MAP>65. UOP adequate 150-275mL/2hours. BMP's trended. Afebrile. Was on home BiPap for about 2 hours per pt request. She refused turns and bath for entire shift. She was able to use trapeze bar and move around in the bed a bit. PLAN MOVING FORWARD: Wean pressors as tolerated, close monitoring INDIVIDUALIZED FALL PREVENTION INTERVENTIONS: Patient-specific fall risk factors per assessment: [current deficits]: Weakness, hypotension Assistance [level of assistance required for transfers and ambulation]: Full Supervision [direct monitoring required during toileting and ADLs]: Direct Surveillance [continuous indirect monitoring]: [place], close to nurses station, purposeful rounding CPG GOAL OUTCOME EVALUATION: Plan of Care - Sallie Villalobos RN - 01/18/2017 5:41 PM EDT Problem: Skin Integrity Impairment, Risk/Actual (Adult) Goal: Skin Integrity/Wound Healing Patient will demonstrate the desired outcomes by discharge/transition of care. Outcome: Ongoing (Interventions Implemented as Appropriate) 01/16/17 0507 Skin Integrity Impairment, Risk/Actual (Adult) Skin Integrity/Wound Healing making progress toward outcome Problem: Patient Care Overview Goal: Plan of Care Review Outcome: Ongoing (Interventions Implemented as Appropriate) 01/18/17 0526 01/18/17 0800 Coping/Psychosocial Plan Of Care Reviewed With -- patient Plan of Care Review Progress improving -- OUTCOME EVALUATION NOTE: OUTCOME SUMMARY: Patient A&O, CARDENAS and repositions herself in bed with overhead trapeze. Skin intact with multiplebruises especially to abdomen. Remained on levo throughout shift. Waso turned off during rounds, levo steadily increased from 6 to 18mcg at which point vaso was turned back on. At the time vaso was turned back on, levo requirement came back down to about 4-8mcg. Regular diet, patient tolerating well. Making adequate amounts of clear light yellow urine. Will continue to monitor closely. PLAN MOVING FORWARD: Titrate pressors to move to floor status INDIVIDUALIZED FALL PREVENTION INTERVENTIONS: Patient-specific fall risk factors per assessment: [current deficits]: IV's, oxygen Assistance [level of assistance required for transfers and ambulation]: Over head trapeze Supervision [direct monitoring required during toileting and ADLs]: Close to nurses station Surveillance [continuous indirect monitoring]: Alarms activated and audible Patient-specific fall prevention interventions for sensory deficits provided, if applicable: CPG GOAL OUTCOME EVALUATION: Goal: Individualization & Mutuality Outcome: Ongoing (Interventions Implemented as Appropriate) 01/16/17 1000 Mutuality/Individual Preferences What Anxieties, Fears or Concerns Do You Have About Your Health or Care? none What Questions Do You Have About Your Health or Care? none What Information Would Help Us Give You More Personalized Care? none Goal: Fall Prevention-Safe Patient Handling Outcome: Ongoing (Interventions Implemented as Appropriate) 01/17/17 1800 01/18/17 0801/18/17 1600 Blair Fall Risk History of Falling -- 0 -- Secondary Diagnosis -- 15 -- Ambulatory Aids -- 0 -- Intravenous Therapy/Heparin/Saline Lock -- 20 -- Gait/Transferring -- 0 -- Mental Status -- 0 -- Score -- 35 -- OTHER Blair Fall Risk -- Med -- Restraint Interventions Safety Promotion/Fall Prevention -- -- fall prevention program maintained Positioning Body Position supine, head elevated -- -- Goal: Infection Control Outcome: Ongoing (Interventions Implemented as Appropriate) 01/18/17 0801/18/17 1600 Safety Interventions Isolation Precautions -- standard precautions maintained Infection Prevention rest/sleep promoted -- Coping Strategies Supportive Measures active listening utilized;self-care encouraged -- Problem: Renal Failure/Kidney Injury, Acute (Adult) Goal: Signs and Symptoms of Listed Potential Problems Will be Absent, Minimized or Managed (Renal Failure/Kidney Injury, Acute) Signs and symptoms of listed potential problems will be absent, minimized or managed by discharge/transition of care (reference Renal Failure/Kidney Injury, Acute (Adult) CPG). Outcome: Ongoing (Interventions Implemented as Appropriate) 01/18/17 0525 Renal Failure/Kidney Injury, Acute Problems Assessed (Acute Renal Failure/Kidney Injury) all Problems Present (Acute Renal Failure/Kidney Injury) infection;electrolyte imbalance;fluid imbalance Plan of Care - Radha Lockett, PT - 01/18/2017 3:56 PM EDT Problem: Patient Care Overview Goal: Plan of Care Review Outcome: Ongoing (Interventions Implemented as Appropriate) 01/18/17 1556 Coping/Psychosocial Plan Of Care Reviewed With patient Plan of Care Review Progress progress towards functional goals is fair Physical Therapy Assessment Pt seen for skilled PT Treatment Number: 1 Please see the Rehab Evaluation Summaries report for objective data and specifics of today???s session. Patient presents to physical therapy close to, what I anticipate is, her functional baseline. Patient kindly declined functional assessment at this time due to fatigue however, per nursing, has been mobilizing quite well in bed today. Will further assess tomorrow. At baseline patient ambulates very short distances with RW and mobilizes primarily in a wheelchair. Anticipate once medically appropriate to d/c that she will be at this level of function. At the most anticipate she will require home PT. Pertinent History of Current Problem: 61 y.o. female with morbid obesity, DAVID on BPAP, presumed hypoventilation, on 2LPM at home, OSH chart history of COPD and diastolic heart failure and PE with recent admission who presents in transfer from [facility] with new renal failure. Staff communication/Mobility Recommendations: ?? Pt. To mobilize OOB with RW Precautions/Restrictions: fall Anticipated Physical Therapy Frequency: 3-5 times/wk Anticipated Discharge Disposition: home with home health Pager: [phone] RADHA LOCKETT, PT 01/19/2017 Inpatient Physical Therapy Problem: Acute Rehab Services Goal & Intervention Plan Goal: Bed Mobility Goal Stand Alone Therapy Goal Outcome: Ongoing (Interventions Implemented as Appropriate) 01/18/17 1556 Bed Mobility Goal Bed Mobility Goal, Date Established 01/18/17 Bed Mobility Goal, Time to Achieve 2 wks Bed Mobility Goal, Activity Type all bed mobility activities Bed Mobility Goal, Roane Level independent Bed Mobility Goal, Outcome Achieved goal ongoing Goal: Gait Training Goal Stand Alone Therapy Goal Outcome: Ongoing (Interventions Implemented as Appropriate) 01/18/17 1556 Gait Training Goal Gait Training Goal, Date Established 01/18/17 Gait Training Goal, Time to Achieve 2 wks Gait Training Goal, Roane Level independent Gait Training Goal, Assist Device walker, rolling Gait Training Goal, Distance to Achieve x20' Gait Training Goal, Outcome goal ongoing Goal: Strength Goal Stand Alone Therapy Goal Outcome: Ongoing (Interventions Implemented as Appropriate) 01/18/17 1556 Strength Goal Strength Goal, Date Established 01/18/17 Strength Goal, Time to Achieve 2 wks Strength Goal, Additional Goal Independent with HEP Strength Goal, Outcome goal ongoing Goal: Goal Transfer Training Stand Alone Therapy Goal Outcome: Ongoing (Interventions Implemented as Appropriate) 01/18/17 1556 Goal Transfer Training Transfer Training Goal, Date Established 01/18/17 Transfer Training Goal, Time to Achieve 2 wks Transfer Training Goal, Activity Type zni-ix-mawiu/wzvmd-cb-hke;nrj-ef-mhttw/ylyfj-jm-bsy Transfer Train Goal, Roane Level independent Transfer Training Goal, Assist Device walker, rolling Transfer Training Goal, Outcome goal ongoing Plan of Care - Sky Darden RN - 01/18/2017 5:30 AM EDT Problem: Patient Care Overview Goal: Plan of Care Review 01/18/17 0526 Coping/Psychosocial Plan Of Care Reviewed With patient Plan of Care Review Progress improving OUTCOME EVALUATION NOTE: OUTCOME SUMMARY: VSS overnight. MAP goal >65, vasopressin and levophed gtts remain on (levo weaned from 36mcg/min to 8mcg/min). MIVF remain on. >4,000ml UOP overnight. 1L NS fluid bolus administered. Home BiPAP settings for most of the night. PLAN MOVING FORWARD: Continue to wean pressors. Continue supportive care. Q8hour BMPs. INDIVIDUALIZED FALL PREVENTION INTERVENTIONS: Patient-specific fall risk factors per assessment: [current deficits]: IVFs running, infection, prolonged admission. Assistance [level of assistance required for transfers and ambulation]: 1+ assistance, uses trapeze and moves independently in bed. Supervision [direct monitoring required during toileting and ADLs]: Continuous ICU monitoring. Surveillance [continuous indirect monitoring]: Alarms active and audible, set appropriately for patient. Patient-specific fall prevention interventions for sensory deficits provided, if applicable: CPG GOAL OUTCOME EVALUATION: Plan of Care - Trevon Manley RN - 01/17/2017 5:29 PM EDT Problem: Patient Care Overview Goal: Plan of Care Review Outcome: Ongoing (Interventions Implemented as Appropriate) 01/17/17 1722 Coping/Psychosocial Plan Of Care Reviewed With patient Plan of Care Review Progress improving OUTCOME EVALUATION NOTE: OUTCOME SUMMARY: Pt alert and oriented x 4. SUQUAMISH. Remains on Levo gtt and vaso gtt to maintain MAP above 65 mmHg. Received 2 L of LR boluses with decreased pressor requirement. Producing copious amounts of urine, team aware (see I+O flow sheet). Remains on 2 L NC with stable oxygen saturations. No other acute changes during the day. Will continue to monitor. PLAN MOVING FORWARD: Continue supportive care INDIVIDUALIZED FALL PREVENTION INTERVENTIONS: Patient-specific fall risk factors per assessment: [current deficits]: ICU patient, generalized weakness and deconditioning Assistance [level of assistance required for transfers and ambulation]: Bed rest, independent with repositioning with over the head trapeze bar, but requires assistance with boosting up in bed Supervision [direct monitoring required during toileting and ADLs]: Bed alarm Surveillance [continuous indirect monitoring]: [place] ICU Patient-specific fall prevention interventions for sensory deficits provided, if applicable: [X] Yes CPG GOAL OUTCOME EVALUATION: Goal: Fall Prevention-Safe Patient Handling Outcome: Ongoing (Interventions Implemented as Appropriate) 01/17/17 0801/17/17 1600 Blair Fall Risk History of Falling 0 -- Secondary Diagnosis 15 -- Ambulatory Aids 0 -- Intravenous Therapy/Heparin/Saline Lock 20 -- Gait/Transferring 0 -- Mental Status 0 -- Score 35 -- OTHER Blair Fall Risk Med -- Restraint Interventions Safety Promotion/Fall Prevention -- activity supervised;fall prevention program maintained;safety round/check completed Positioning Body Position -- independent with trapeze/overhead bed frame Goal: Infection Control Outcome: Ongoing (Interventions Implemented as Appropriate) 01/17/17 0801/17/17 1600 Safety Interventions Isolation Precautions -- standard precautions maintained Infection Prevention rest/sleep promoted;single patient room provided -- Coping Strategies Supportive Measures active listening utilized;positive reinforcement provided;problem solving facilitated -- Problem: Renal Failure/Kidney Injury, Acute (Adult) Goal: Signs and Symptoms of Listed Potential Problems Will be Absent, Minimized or Managed (Renal Failure/Kidney Injury, Acute) Signs and symptoms of listed potential problems will be absent, minimized or managed by discharge/transition of care (reference Renal Failure/Kidney Injury, Acute (Adult) CPG). Outcome: Ongoing (Interventions Implemented as Appropriate) 01/17/17 1722 Renal Failure/Kidney Injury, Acute Problems Assessed (Acute Renal Failure/Kidney Injury) all Problems Present (Acute Renal Failure/Kidney Injury) electrolyte imbalance;fluid imbalance;infection Initial Assessments - Omar Zamarripa RN - 01/17/2017 4:45 PM EDT Office of Care Management Initial Assessment Omar Zamarripa RN reviewed record and discussed patient with Care Team. Source of Information: via chart review and pt interview at her bedside. Introduced self/reviewed role; services accepted. Reason for Hospitalization: JODY (acute kidney injury). From CC H&P: Cyn Prado is a 61 y.o. female with the above pmhx who was recently hospitalized at [facility] for 3 days due to a newly diagnosed pulmonary embolism and COPD/diastolic heart failure exacerbation. Patient was discharged on enoxaparin on 01/13 with a rising Cr. Once at home she continued to be not feeling well, have malaise and also developed a mild confusion. On 01/15 she presented back to the ED @ [facility] with hemoptysis and hyperkalemia in the setting of a JODY,Cr >5 and BUN >120. [facility] hospitalitis service was consulted for further care and management. On arrival nephrology was consulted, who felt her JODY is likely ATN and SUHAIL and recommended IVF hydration, her hyperkalemia was treated with kayexalate. Earlier this evening patient became hypotensive to the low 70s/30s, and CCS were consulted, patient received 2L IVF boluses and started on a brigido gtt prior to transfer to the ICU. ??On arrival to the ICU patient remained hypotensive, IV crystalloid bolus given and an arterial line and CVC placed. Past Medical History: Diagnosis Date ??? COPD (chronic obstructive pulmonary disease) ??? Depression ??? Hypertension ??? DAVID treated with BiPAP ??? PE (pulmonary thromboembolism) Hospitalizations Within the Past 30 Days: none identified in chart review. Anticipated Length Of Stay (If known): unknown at this time. Current Decision-Making Capacity: pt is alert and oriented, opens her eyes spontaneously, and follows commands. GCS is 15. Advance Care Planning: no AD on file. Pt is a Full Code. If AD's have not been completed pt's adult son Ashish Barrios would be surrogate decision maker per [facility] decision making law. Any patient receiving care at [facility] must abide by [place] law. The hierarchy for surrogate decision making [...] (i) The agent with financial power of eyedotter or a conservator appointed in accordance with RSA 464-A. (j) The guardian of the patient???s estate. Current Coping/Education/Information Needs: no need for a family meeting or an juvenile corrections officer at this time. Current Functional Ability: pt currently requires assistive equipment and an assistive person to ambulate, transfer, toilet, bath, and dress. She eats and communicates independently. Functional Status Prior to Admission: pt required assistive equipment to ambulate, transfer, toilet,bath, and dress prior to this admission. She ate and communicated independently. Per the medicine H&P, the pt Gets around with a walker at home until she is too tired then goes to her WC. Anytime outside of the house she will use her WC. Home Environment: pt lives in a ranch style home with a ramp for access. The bathroom is also handicap accessible due to her son being severely handicapped. The pt, her boyfriend, and her handicapped son live in the house. Social & Family Supports/Community Resources: denies, pt does all the cooking for the family. Behavioral Health History: H/O Depression. Substance Use/Abuse: pt is a former cigarette smoker who quit 15 years ago. She is also a former drinker but quit EtOH 27 years ago. Other Pertinent/Service Specific Information: none. Health/Prescription Coverage: Primary Insurance: Medicare A, B, & D Secondary Insurance: [place] Medicaid. Prescription Coverage: yes, part D Preferred Pharmacy: [email or web address] in [place], [place]. Other: none. Primary Care Provider: Alphonso Murphy MD [phone] Patient/Caregiver Goals of Treatment: plan being determined. Pt currently remains on Levo @ 6 mcg/min. Vasopressin was stopped and DC'd as of 10:00 this morning. Potential Needs for Transition of Care: Rehab/SNF: to be determined but likely will require a stay in rehab after DC. [facility] though she does not really want to go there again. She'd rather go home though. Based on discussions with the multi-disciplinary healthcare team, the patient would benefit from SNFlevel of care at discharge. ?? I have met with the patient/shipping services sales representative to discuss discharge planning needs. I have provided the [facility], Office of Care Management letter from the [employer] pertaining to rehab referrals. I have also provided a letter describing our affiliations within the [facility] and educated them about their right to choose where referrals are placed. ?? I reviewed the different levels of rehab including SNF, swing, acute and LTAC with the patient/shipping services sales representative. ?? The patient/shipping services sales representative has been provided a list of facilities within their preferred geographic area. ?? I have requested that the patient/shipping services sales representative provide at least three choices for referral. ?? The patient/shipping services sales representative have requested referrals to: [facility] [address] [place] [address] ?? Expected date of discharge: to be determined. Note routed to [employer] who will communicate referrals to facilities and provide any required information. Home Health: to be determined. Would like [facility] if DC'd with home health. DME: currently requires a walker and/or a wheel chair at home. Dialysis: N/A Community Resources: none. Transportation: will likely require an ambulance to rehab. Other: none. Anticipated Barriers to Discharge/Special Considerations: no barriers identified at this time. Plan: a member of the Care Management team will continue to monitor progress, follow for continuity of care and assist with transition of care planning. Helminthologist Omar Zamarripa RN, BSN Pager #[phone] Plan of Care - Azucena Jennings RN - 01/16/2017 2:31 PM EDT Problem: Patient Care Overview Goal: Plan of Care Review Outcome: Ongoing (Interventions Implemented as Appropriate) OUTCOME EVALUATION NOTE: OUTCOME SUMMARY: A+O. VSS. Pt give 30g kayexalate for potassium 6.3, recheck was 5.9. Pt continues to be oliguric, urine is dark tea colored--UA sent, see results. IV fluids continue are 150ml/hr. Pt continues to have bloody sputum and leaky blood draw sites. Around 1630, pt BP were 70s/30s, life safety MD oswaldo aware and 1L bolus ordered. Pt lethargic and pale in color but mentating well. Plan to send pt to higher level of care. PLAN MOVING FORWARD: PICC placement tomorrow morning. Continue Q6 BMP. INDIVIDUALIZED FALL PREVENTION INTERVENTIONS: Patient-specific fall risk factors per assessment: [current deficits]: Pt is a high fall risk due toweakness Assistance [level of assistance required for transfers and ambulation]: 2 assist, mechanical lift Supervision [direct monitoring required during toileting and ADLs]: Hands on Surveillance [continuous indirect monitoring]: Hourly rounding, call light within reach, pt calls appropriately, nonskid socks when out of bed. Patient-specific fall prevention interventions for sensory deficits provided, if applicable: [X] N/A CPG GOAL OUTCOME EVALUATION: Consult Note - Kaushal Riggs MD - 01/16/2017 9:50 AM EDT HYPERTENSION/ NEPHROLOGY CONSULT PATIENT: Cyn Prado : 1955 REASON FOR CONSULTATION: JODY referred by Dr. Garland HPI: 61 y.o. female with PMHx significant for morbid obesity, DAVID on BPAP, on 2LPM at home for COPD and diastolic heart failure was recently managed at OSH for SOB which was attributed to heart failure andPE. She stayed there fo 2 weeks and was agressively diuresed. She was also given IV contrast for CT to evaluate her for PE. She was discharged 3 days back. Her creatinine was rising when she was discharged. Base line creatinine < 1 and was > 1.5 when she was discharged. She was urinating less. She stayed home for 2 days and was taken back to hospital again yesterday. At home her urine out was minimal, she urinated just once yesterday despite being in diuretics. Since her arrival here she has not made any urine. She has schmitt cathter in place. She has no Hx of any NSAID intake. No kidney stones. No renal issues per pt in past. She has some back pain. She feels little thirsty. She has no diarrhea. She had 3 episodes of vomiting with blood in it. she denies uremic symptoms including epistaxis,or hiccups. No past medical history on file. Past Surgical History: Procedure Laterality Date ??? [...] / LEFT/AMAN LCCK/AMAN LPS/ANTIBIOTIC CEMENT ProcedureDate: 11/23/2005 No family history on file. Social History Narrative None on file Outpatient medications: No current facility-administered medications on file prior to encounter. No current outpatient prescriptions on file prior to encounter. MEDICATIONS: ??? buPROPion 150 mg Oral Daily ??? citalopram 20 mg Oral Daily ??? fluticasone 1 spray Each Nare Daily ??? sodium chloride 0.9 % 5 mL Intravenous Q12H ??? pantoprazole 40 mg Intravenous BID Allergies Allergen Reactions ??? Iodinated Contrast- Oral And Iv Dye ??? Iodine And Iodide Containing Products CIS - Rash, CIS - Rash ??? Morphine Rash ??? Oxycodone Rash ROS: Constitutional - No fevers, chills, weight loss Skin - No rash or itchy skin HEENT - No headaches, visual changes Resp - No cough CV - No chest pain, leg swelling, difficulty breathing lying flat GI - No change in bowel habits/abdominal pain - low urine output. No pain urinating or blood in urine. Neuro - No weakness. No numbness/ tingling in extremities. PHYSICAL EXAM: Last value Range last 24 hrs Temperature Temp: 36.4 ??C (97.5 ??F) Temp: [36.3 ??C (97.3 ??F)-36.4 ??C (97.5 ??F)] Heart Rate Heart Rate: 68 Heart Rate: [68-88] Blood Pressure BP: 124/75 BP: (107-146)/(75-123) Respiratory Rate Resp: 16 Resp: [12-16] SpO2 SpO2: 92 % SpO2: [92 %-95 %] Appearance - Alert, Comfortable. Morbidly obese Skin - No exanthem. HEENT - Sclera white. Mucous membranes dry. Chest: Lungs clear to ausculatation w/o wheezes/ rhonchi/ crackles. Heart - S1 and S2 clear w/o murmur, gallop, or rub. JVP not elevated. Abd - Soft. + BS. No bruit. Non tender. Ext -Warm. No cyanosis. + dependent edema. Neuro - No asterixis. STUDIES: Labs: CBC: Recent Labs 01/16/17 033 WBC 14.7* HGB 11.1* PLATELET 227 Chemistry: Recent Labs 01/16/17331 NA 119* K 5.9* CL 81* CO2 24 BUN 130* CREATININE 5.99* GLUCOSE 114 Recent Labs 01/16/17 033 CALCIUM 8.6 MAGNESIUM 1.08* PHOS 5.1* LFT's: Recent Labs 01/16/17 0332 BILITOT 0.7 BILIDIR 0.1 ALBUMIN 2.9* ALKPHOS 56 ALT 30 AST 19 Urine microscopy showed normal looking RBCs with granular muddy brown cast IMPRESSION/ RECOMMENDATIONS: JODY : Pre renal from over diuresis, ATN, with some contribution from IV contrast (SUHAIL) We will recommend continuing IV hydration with NS at 150 ml/hour Elevated BUN could be due to renal failure. Would suggest ruling upper GI bleed as well. Hyponatremia from renal failure and diuretics use should improve with improvement of kidney function Hyperkalemia pt with renal failure while on spironolactone and ACEi. Watch closely. Agree with giving kayexalate Renal US to rule out obstruction Thanks for letting us participate in the care of this patient. Seen and Discussed w/ Dr. Keely Isabel Nephrology Fellow Pager -[phone] Renal Attending: The patient was examined together with the renal fellow and I agree with the above note which accurately reflects our findings and assessment Plan of Care - Roslyn Obrien RN - 01/16/2017 6:37 AM EDT Problem: Patient Care Overview Goal: Plan of Care Review Outcome: Ongoing (Interventions Implemented as Appropriate) 01/16/17 0200 Coping/Psychosocial Plan Of Care Reviewed With patient OUTCOME EVALUATION NOTE: OUTCOME SUMMARY: Patient arrived to room by stretcher around 0040- oriented to room and call novak. Denies pain, though states at times her left hip is positionally sore. Patient arrived and remained on2 L NC- sating low 90's. Patient brought own BIPAP from home- engineering down to assess and clear. P atient denies SOB or CP. Inspiratory and expiratory wheezes and coarse lung sounds auscultated, R sounding much worse than L. When patient arrived she did have tissues with dried blood on them, patientand EMS personnel stating she had coughed up some blood. STAT labs obtained. STAT EKG obtained.Tele initiated. IVF initiated at 100ml/hr. Around 0500 patient vomiting a small amount of bloody emesis, blood clots observed. No coffee ground emesis noted. Patient denying nausea at that time. MD notified and IV PPI ordered and administered. Patient draining very small amount of urine this am- noted to bedark brown in color. MD aware. 500 ml bolus administered to R AC #20- able to get blood return. Nephr ology consulted. Will closely monitor and notify team w/ changes. PLAN MOVING FORWARD: IVF, monitor UO closely, BMP Q6H, need UA w/ reflex INDIVIDUALIZED FALL PREVENTION INTERVENTIONS: Patient-specific fall risk factors per assessment: [current deficits]: IV sites, Masimo, oxygen tubing Assistance [level of assistance required for transfers and ambulation]: 2 assist stand pivot Supervision [direct monitoring required during toileting and ADLs]: Hands on Surveillance [continuous indirect monitoring]: Purposeful rounding, nurse knowledge exchange Patient-specific fall prevention interventions for sensory deficits provided, if applicable: Yes CPG GOAL OUTCOME EVALUATION: documented in this encounter Plan of Treatment Not on filedocumented as of this encounter Procedures Procedure Name Priority Date/Time Associated Diagnosis Comme nts HAM SAWYER SCAN 01/22/2017 12:00 Res ults for this AM EDT procedure are i n the results section. HEMOGRAM Routine 01/21/2017 8:31 Results for this AM EDT procedure are i n the results section. DIFFERENTIAL, AUTOMATED Routine 01/21/2017 8:31 R esults for this AM EDT procedure are i n the results section. GREEN TUBE HOLD Routine 01/21/2017 8:31 Results f or this AM EDT procedure are i n the results section. CBC (WITH DIFF) Routine 01/21/2017 8:31 AM EDT PHOSPHORUS Routine 01/21/2017 5:07 Results for this AM EDT procedure are i n the results section. MAGNESIUM Routine 01/21/2017 5:07 Results for this AM EDT procedure are i n the results section. BASIC METABOLIC PANEL Routine 01/21/2017 5:07 Res ults for this (NON-FASTING) AM EDT procedure are in the results section. HEMOGRAM Routine 01/20/2017 11:15 Results for this AM EDT procedure are i n the results section. DIFFERENTIAL, AUTOMATED Routine 01/20/2017 11:15 Results for this AM EDT procedure are i n the results section. CBC (WITH DIFF) Routine 01/20/2017 11:15 AM EDT PHOSPHORUS STAT 01/20/2017 10:30 Results for this AM EDT procedure are i n the results section. MAGNESIUM STAT 01/20/2017 10:30 Results for this AM EDT procedure are i n the results section. BASIC METABOLIC PANEL STAT 01/20/2017 10:30 Re sults for this (NON-FASTING) AM EDT procedure are in the results section. POCT GLUCOSE Routine 01/19/2017 9:16 Results for this AM EDT procedure are i n the results section. POCT GLUCOSE Routine 01/19/2017 4:00 Results for this AM EDT procedure are i n the results section. HEMOGRAM Routine 01/19/2017 4:00 Results for this AM EDT procedure are i n the results section. DIFFERENTIAL, AUTOMATED Routine 01/19/2017 4:00 R esults for this AM EDT procedure are i n the results section. CBC (WITH DIFF) Routine 01/19/2017 4:00 AM EDT PHOSPHORUS Routine 01/19/2017 4:00 Results for this AM EDT procedure are i n the results section. MAGNESIUM Routine 01/19/2017 4:00 Results for this AM EDT procedure are i n the results section. BASIC METABOLIC PANEL Timed 01/19/2017 4:00 Res ults for this (NON-FASTING) AM EDT procedure are in the results section. POCT GLUCOSE Routine 01/19/2017 12:08 Results for this AM EDT procedure are i n the results section. POCT GLUCOSE Routine 01/18/2017 8:04 Results for this PM EDT procedure are i n the results section. BASIC METABOLIC PANEL Timed 01/18/2017 7:25 Res ults for this (NON-FASTING) PM EDT procedure are in the results section. POCT GLUCOSE Routine 01/18/2017 3:51 Results for this PM EDT procedure are i n the results section. BASIC METABOLIC PANEL Timed 01/18/2017 12:29 Re sults for this (NON-FASTING) PM EDT procedure are in the results section. POCT GLUCOSE Routine 01/18/2017 12:05 Results for this PM EDT procedure are i n the results section. POCT GLUCOSE Routine 01/18/2017 7:45 Results for this AM EDT procedure are i n the results section. VANCOMYCIN, TROUGH Timed 01/18/2017 5:00 Result s for this AM EDT procedure are i n the results section. POCT GLUCOSE Routine 01/18/2017 4:04 Results for this AM EDT procedure are i n the results section. HEMOGRAM Routine 01/18/2017 4:00 Results for this AM EDT procedure are i n the results section. DIFFERENTIAL, AUTOMATED Routine 01/18/2017 4:00 R esults for this AM EDT procedure are i n the results section. CBC (WITH DIFF) Routine 01/18/2017 4:00 AM EDT PHOSPHORUS Routine 01/18/2017 4:00 Results for this AM EDT procedure are i n the results section. MAGNESIUM Routine 01/18/2017 4:00 Results for this AM EDT procedure are i n the results section. BASIC METABOLIC PANEL Timed 01/18/2017 4:00 Res ults for this (NON-FASTING) AM EDT procedure are in the results section. POCT GLUCOSE Routine 01/18/2017 12:05 Results for this AM EDT procedure are i n the results section. BASIC METABOLIC PANEL Timed 01/17/2017 6:28 Res ults for this (NON-FASTING) PM EDT procedure are in the results section. URINALYSIS WITH REFLEX Routine 01/17/2017 6:23 Re sults for this CULTURE PM EDT procedure are i n the results section. POCT GLUCOSE Routine 01/17/2017 6:20 Results for this PM EDT procedure are i n the results section. URINALYSIS WITHOUT Routine 01/17/2017 1:10 Result s for this MICROSCOPIC PM EDT procedure are i n the results section. BLOOD GAS 2 ARTERIAL Routine 01/17/2017 1:07 Resu lts for this PM EDT procedure are i n the results section. REQUEST FOR 2ND READ CT Routine 01/17/2017 12:34 Results for this CHEST PM EDT procedure are i n the results section. POCT GLUCOSE Routine 01/17/2017 12:00 Results for this PM EDT procedure are i n the results section. CYTOPLASMIC Routine 01/17/2017 12:00 Results for this NEUTROPHILIC AB PM EDT procedure ar e in the results section. PROTEINASE-3 ANTIBODY Routine 01/17/2017 12:00 Re sults for this PM EDT procedure are i n the results section. MYELOPEROXIDASE AB Routine 01/17/2017 12:00 Resul ts for this PM EDT procedure are i n the results section. HEMOGRAM Routine 01/17/2017 12:00 Results for this PM EDT procedure are i n the results section. GLOMERULAR BASEMENT Routine 01/17/2017 12:00 Resu lts for this MEMBRANE ANTIBODY IGG PM EDT proced ure are in the results section. SEDIMENTATION RATE Routine 01/17/2017 12:00 Resul ts for this PM EDT procedure are i n the results section. BASIC METABOLIC PANEL Timed 01/17/2017 12:00 Re sults for this (NON-FASTING) PM EDT procedure are in the results section. US RETROPERITONEAL Routine 01/17/2017 11:35 Resul ts for this COMPLETE AM EDT procedure are i n the results section. ECHOCARDIOGRAM COMPLETE Routine 01/17/2017 11:30 Hypotension, Results for this W CONTRAST AM EDT unspecified procedure are i n hypotension type the results section. POCT GLUCOSE Routine 01/17/2017 7:35 Results for this AM EDT procedure are i n the results section. CORTISOL Timed 01/17/2017 7:35 Results for this AM EDT procedure are i n the results section. BASIC METABOLIC PANEL Timed 01/17/2017 7:35 Res ults for this (NON-FASTING) AM EDT procedure are in the results section. BLOOD GAS 2 VENOUS Routine 01/17/2017 3:14 Result s for this AM EDT procedure are i n the results section. HEMOGRAM Routine 01/17/2017 2:15 Results for this AM EDT procedure are i n the results section. DIFFERENTIAL, AUTOMATED Routine 01/17/2017 2:15 R esults for this AM EDT procedure are i n the results section. CBC (WITH DIFF) Routine 01/17/2017 2:15 AM EDT PHOSPHORUS Routine 01/17/2017 2:15 Results for this AM EDT procedure are i n the results section. MAGNESIUM Routine 01/17/2017 2:15 Results for this AM EDT procedure are i n the results section. BASIC METABOLIC PANEL Timed 01/17/2017 2:15 Res ults for this (NON-FASTING) AM EDT procedure are in the results section. INSERT ARTERIAL LINE Routine 01/17/2017 1:16 Resu lts for this AM EDT procedure are i n the results section. HEPARIN, LOW MOLECULAR Routine 01/17/2017 12:20 R esults for this WEIGHT ASSAY AM EDT procedure are i n the results section. EKG 12-LEAD STAT 01/16/2017 11:16 Hyperkalemia Results for this PM EDT procedure are i n the results section. XR CHEST ONE VIEW STAT 01/16/2017 11:06 Result s for this PM EDT procedure are i n the results section. HEMOGRAM STAT 01/16/2017 9:45 Results for this PM EDT procedure are i n the results section. DIFFERENTIAL, AUTOMATED STAT 01/16/2017 9:45 R esults for this PM EDT procedure are i n the results section. CARDIAC ENZYMES STAT 01/16/2017 9:45 Results f or this ([facility] EDT procedure are i n the results section. APTT STAT 01/16/2017 9:45 Results for this PM EDT procedure are i n the results section. PROTHROMBIN TIME STAT 01/16/2017 9:45 Results for this PM EDT procedure are i n the results section. CBC (WITH DIFF) STAT 01/16/2017 9:45 PM EDT PHOSPHORUS STAT 01/16/2017 9:45 Results for this PM EDT procedure are i n the results section. MAGNESIUM STAT 01/16/2017 9:45 Results for this PM EDT procedure are i n the results section. HEPATIC FUNCTION PANEL Routine 01/16/2017 9:45 Re sults for this PM EDT procedure are i n the results section. BASIC METABOLIC PANEL STAT 01/16/2017 9:45 Res ults for this (NON-FASTING) PM EDT procedure are in the results section. POCT GLUCOSE Routine 01/16/2017 9:20 Results for this PM EDT procedure are i n the results section. BLOOD CULTURE STAT 01/16/2017 9:20 Results for this PM EDT procedure are i n the results section. BLOOD GAS 2 ARTERIAL Routine 01/16/2017 9:19 Resu lts for this PM EDT procedure are i n the results section. EKG 12-LEAD STAT 01/16/2017 5:19 Hypotension, Results for this PM EDT unspecified procedure are i n hypotension type the results section. POCT GLUCOSE Routine 01/16/2017 5:15 Results for this PM EDT procedure are i n the results section. HEMOGRAM STAT 01/16/2017 2:55 Results for this PM EDT procedure are i n the results section. BASIC METABOLIC PANEL Timed 01/16/2017 2:55 Res ults for this (NON-FASTING) PM EDT procedure are in the results section. AB COMMENT Routine 01/16/2017 1:50 Results for this PM EDT procedure are i n the results section. ANTIBODY IDENTIFICATION Routine 01/16/2017 1:50 R esults for this PM EDT procedure are i n the results section. URINE HOLD Routine 01/16/2017 12:00 Results for this PM EDT procedure are i n the results section. URINALYSIS WITH REFLEX Routine 01/16/2017 12:00 R esults for this CULTURE PM EDT procedure are i n the results section. URINE CULTURE Routine 01/16/2017 12:00 Results fo r this PM EDT procedure are i n the results section. ETHANOL LEVEL Timed 01/16/2017 10:06 Results fo r this AM EDT procedure are i n the results section. BASIC METABOLIC PANEL Timed 01/16/2017 10:06 Re sults for this (NON-FASTING) AM EDT procedure are in the results section. ETHANOL LEVEL STAT 01/16/2017 7:28 Results for this AM EDT procedure are i n the results section. ACETAMINOPHEN LEVEL STAT 01/16/2017 7:28 Resul ts for this AM EDT procedure are i n the results section. SALICYLATE STAT 01/16/2017 7:28 Results for this AM EDT procedure are i n the results section. UREA NITROGEN, URINE, Routine 01/16/2017 6:16 Res ults for this RANDOM AM EDT procedure are i n the results section. SODIUM, URINE, RANDOM Routine 01/16/2017 6:16 Res ults for this AM EDT procedure are i n the results section. POTASSIUM, URINE, Routine 01/16/2017 6:16 Results for this RANDOM AM EDT procedure are i n the results section. OSMOLALITY, URINE, Routine 01/16/2017 6:16 Result s for this RANDOM AM EDT procedure are i n the results section. CREATININE, URINE, Routine 01/16/2017 6:16 Result s for this RANDOM AM EDT procedure are i n the results section. CHLORIDE, URINE, RANDOM Routine 01/16/2017 6:16 R esults for this AM EDT procedure are i n the results section. EKG 12-LEAD STAT 01/16/2017 4:37 Hyperkalemia Results for this AM EDT procedure are i n the results section. ABORH RECHECK STATUS STAT 01/16/2017 3:32 Resu lts for this AM EDT procedure are i n the results section. ABORH TYPE MANUAL STAT 01/16/2017 3:32 Results for this AM EDT procedure are i n the results section. SELECTED CELL SCREEN STAT 01/16/2017 3:32 Resu lts for this AM EDT procedure are i n the results section. SCAN, PERIPHERAL BLOOD STAT 01/16/2017 3:32 Re sults for this AM EDT procedure are i n the results section. HEMOGRAM STAT 01/16/2017 3:32 Results for this AM EDT procedure are i n the results section. DIFFERENTIAL, AUTOMATED STAT 01/16/2017 3:32 R esults for this AM EDT procedure are i n the results section. APTT STAT 01/16/2017 3:32 Results for this AM EDT procedure are i n the results section. PROTHROMBIN TIME STAT 01/16/2017 3:32 Results for this AM EDT procedure are i n the results section. CBC (WITH DIFF) STAT 01/16/2017 3:32 AM EDT TRIGLYCERIDE STAT 01/16/2017 3:32 Results for this AM EDT procedure are i n the results section. PHOSPHORUS STAT 01/16/2017 3:32 Results for this AM EDT procedure are i n the results section. OSMOLALITY STAT 01/16/2017 3:32 Results for this AM EDT procedure are i n the results section. PRO-BRAIN NATRIURETIC STAT 01/16/2017 3:32 Res ults for this PEPTIDE AM EDT procedure are i n the results section. MAGNESIUM STAT 01/16/2017 3:32 Results for this AM EDT procedure are i n the results section. HEPATIC FUNCTION PANEL STAT 01/16/2017 3:32 Re sults for this AM EDT procedure are i n the results section. BASIC METABOLIC PANEL STAT 01/16/2017 3:32 Res ults for this (NON-FASTING) AM EDT procedure are in the results section. FILM LIBRARY STORAGE Routine 01/10/2017 12:00 Res ults for this ONLY CT CHEST AM EDT procedure are in the results section. documented in this encounter Results SCAN DOC: HAM SAWYER (01/22/2017 12:00 AM EDT) Narrative 01/22/2017 12:00 AM EDT This result has an attachment that is no t available. Ordered by an unspecified provider. Scanning Provider MEDIA MGR SCAN EXT ORDR/RSLT Green Tube HOLD (01/21/2017 8:31 AM EDT) P athologist Signature Green Hold Sample in [facility]. [facility] Specimen Anatomical Collection Method Collection Time Receive d Time (Source) Location / / Volume Laterality Blood specimen Venous Draw / 01/21/2017 8:31 AM 2016 8:44 (specimen) Unknown EDT AM EDT Alvaro Law MD CHEMISTRY ORDERABLES Performing Organization Address City/State/[place] [address] (ABNORMAL) Differential, Automated (01/21/2017 8:31 AM EDT) Patholo gist Method Time Signature Neutrophils % 72.5 % [facility] Neutr Abs (ANC) 9.62 (H) 1.70 - [facility] 6.10 [facility] x10(3)/[facility] LABORATORY Lymphocytes % 16.3 % [facility] Lymphocytes Abs 2.2 0.9 - 3.2 [facility] x10(3)/[facility] LABORATORY Monocytes % 6.6 % [facility] Monocyte Abs 0.9 0.3 - 0.9 [facility] x10(3)/[facility] LABORATORY Eosinophils % 2.9 % [facility] Eosinophils Abs 0.4 0.0 - 0.4 [facility] x10(3)/[facility] LABORATORY Basophils % 0.2 % [facility] Basophils Abs 0.0 0.0 - 0.1 [facility] x10(3)/[facility] LABORATORY Immature Gran % 1.50 % [facility] Comment: Immature granulocytes(IG's)percentage an d absolute count will include metamyelocytes, myelocytes, and promyelo cytes. Blood smears from CBCs yielding IG's will be scanned manually for concor dance. If this scan disagrees with the automated IG or if promyelocytes are not ed, a manual differential will be performed. Surekha Gran Abs 0.20 (H) 0.00 - 0.04 x10(3)/[facility] LABORATORY Specimen Anatomical Collection Method Collection Time Receive d Time (Source) Location / / Volume Laterality Blood specimen 01/21/2017 8:31 AM 017 8:44 (specimen) EDT AM EDT Resulting Agency Comment Spec In Lab Alvaro Law MD HEMATOLOGY ORDERABLES Performing Organization Address City/State/[place] [address] (ABNORMAL) Hemogram (01/21/2017 8:31 AM EDT) Analysis Performed At Patho logist Time Signature WBC 13.3 (H) 4.0 - 9.5 [facility] x10(3)/[facility] LABORATORY RBC 3.46 (L) 4.00 - [facility] 5.21 [facility] x10(6)/[employer] LABORATORY Hemoglobin 10.1 (L) 11.7 - [facility] 15.5 gm/dL [facility] Hematocrit 30.6 (L) 35.7 - [facility] 45.8 % [facility] MCV 88.4 82.6 - [place] 94.4 [facility] LABORATORY MCH 29.2 27.1 - [place] 32.0 pg [facility] MCHC 33.0 31.7 - [place] 35.0 gm/dL [facility] Platelets 240 145 - 357 [place] x10(3)/[facility] LABORATORY RDWSD 46.1 (H) 37.0 - [place] 46.0 [facility] LABORATORY RDWCV 14.3 (H) 11.5 - [place] 14.1 % [facility] MPV 10.7 7.6 - 12.9 [place] [facility] LABORATORY nRBC % Auto 0.0 % [facility] nRBC Abs Auto 0.000 0.000 - [place] 0.000 [facility] x10(3)/[employer] LABORATORY Specimen Anatomical Collection Method Collection Time Receive d Time (Source) Location / / Volume Laterality Blood specimen 01/21/2017 8:31 AM 017 8:44 (specimen) EDT AM EDT Resulting Agency Comment Spec In Lab Alvaro Law MD HEMATOLOGY ORDERABLES Performing Organization Address City/State/ZIP Code Phon e Number [address] Phosphorus (01/21/2017 5:07 AM EDT) P athologist Signature Phosphorus 3.2 2.5 - 4.5 [place] mg/dL [facility] Comment: result rechecked-AFP Specimen Anatomical Collection Method Collection Time Receive d Time (Source) Location / / Volume Laterality Blood specimen 01/21/2017 5:07 AM 017 5:25 (specimen) EDT AM EDT Resulting Agency Comment Spec In Lab Alvaro Law MD CHEMISTRY ORDERABLES Performing Organization Address City/State/ZIP Code Phon e Number [address] Magnesium (01/21/2017 5:07 AM EDT) P athologist Signature Magnesium 0.74 0.69 - 1.07 [place] mmol/L [facility] Specimen Anatomical Collection Method Collection Time Receive d Time (Source) Location / / Volume Laterality Blood specimen 01/21/2017 5:07 AM 017 5:25 (specimen) EDT AM EDT Resulting Agency Comment Spec In Lab Alvaro Law MD CHEMISTRY ORDERABLES Performing Organization Address City/State/ZIP Code Phon e Number [facility] [place] [address] (ABNORMAL) Basic Metabolic Panel (non-fasting) (01/21/2017 5:07 AM EDT) athologist Signature Glucose Lvl 92 65 - 199 [facility] mg/dL [facility] Comment: Diabetes: >=200 mg/dL plus symp toms BUN 10 8 - 18 mg/dL [facility] Creatinine 0.66 (L) 0.70 - 1.20 mg/dL [facility] Comment: Please note that the pediatric reference intervals supplied above were not validated at [facility]. Results from pediatri c patients should be interpreted in conjunction to the patient's age, height and muscle mass. Sodium 138 135 - 145 mmol/L [facility] Potassium 3.8 3.5 - 5.0 mmol/L [facility] Comment: Please note: ??Patients with WBC >100,00 0 may have falsely elevated Potassium levels. ??For accurate Potassium quantif ication in these patients send serum separator tube (gold top) for subsequent determinations. ??Contact the Clinical Chemistry Laboratory if there are any qu estions. Chloride 96 (L) 98 - 107 mmol/L [facility] CO2 29 22 - 31 mmol/L [facility] Anion Gap 13 5 - 15 mmol/L [facility] Calcium 8.5 8.5 - 10.5 mg/dL [facility] Estimated GFR >60 >=60 [facility] Comment: This estimated GFR (eGFR) value was calc ulated using the MDRD equation which has been validated on patients between t he ages of 18 and 70. The MDRD should not be used to assess kidney function in patients < 18 years of age or in patients with extremes of body mass, or in patients with acute kidney failure. This value should be multiplied by 1.2 f or patients. For further information please copy and past e the following links into your internet browser. [email or web address] Specimen Anatomical Collection Method Collection Time Receive d Time (Source) Location / / Volume Laterality Blood specimen 01/21/2017 5:07 AM 017 5:25 (specimen) EDT AM EDT Resulting Agency Comment Spec In Lab Alvaro Law MD CHEMISTRY ORDERABLES Performing Organization Address City/State/ZIP Code Phon e Number [place] [id number] (ABNORMAL) Differential, Automated (01/20/2017 11:15 AM EDT) [facility] Method Time Signature Neutrophils % 71.0 % [facility] Neutr Abs (ANC) 10.20 (H) 1.70 - [facility] 6.10 [facility] x10(3)/[facility] LABORATORY Lymphocytes % 16.4 % [facility] Lymphocytes Abs 2.4 0.9 - 3.2 [facility] x10(3)/[facility] LABORATORY Monocytes % 9.1 % [facility] Monocyte Abs 1.3 (H) 0.3 - 0.9 [facility] x10(3)/[facility] LABORATORY Eosinophils % 2.4 % [facility] Eosinophils Abs 0.3 0.0 - 0.4 [facility] x10(3)/[facility] LABORATORY Basophils % 0.2 % [facility] Basophils Abs 0.0 0.0 - 0.1 [facility] x10(3)/[facility] LABORATORY Immature Gran % 0.90 % [facility] Comment: Immature granulocytes(IG's)percentage an d absolute count will include metamyelocytes, myelocytes, and promyelo cytes. Blood smears from CBCs yielding IG's will be scanned manually for concor dance. If this scan disagrees with the automated IG or if promyelocytes are not ed, a manual differential will be performed. [facility] Gran Abs 0.13 (H) 0.00 - 0.04 x10(3)/[facility] LABORATORY Specimen Anatomical Collection Method Collection Time Receive d Time (Source) Location / / Volume Laterality Blood specimen 01/20/2017 11:15 7 (specimen) AM EDT 11:20 AM EDT Resulting Agency Comment Spec In Lab Alvaro Law MD HEMATOLOGY ORDERABLES Performing Organization Address City/State/[place] [address] (ABNORMAL) Hemogram (01/20/2017 11:15 AM EDT) Analysis Performed At Patho logist Time Signature WBC 14.4 (H) 4.0 - 9.5 [facility] x10(3)/[facility] LABORATORY RBC 2.93 (L) 4.00 - [facility] 5.21 [facility] x10(6)/[employer] LABORATORY Hemoglobin 8.7 (L) 11.7 - [facility] 15.[facility] gm/dL [facility] Hematocrit 25.2 (L) 35.7 - [facility] 45.8 % [facility] MCV 86.0 82.6 - [facility] 94.4 [facility] LABORATORY MCH 29.7 27.1 - [facility] 32.0 pg [facility] MCHC 34.5 31.7 - [facility] 35.0 gm/dL [facility] Platelets 184 145 - 357 [facility] x10(3)/[facility] LABORATORY RDWSD 44.6 37.0 - [facility] JAY 46.0 [facility] LABORATORY RDWCV 14.2 (H) 11.5 - [facility] JAY 14.1 % [facility] MPV 11.2 7.6 - 12.9 [facility] nRBC % Auto 0.0 % [facility] nRBC Abs Auto 0.000 0.000 - [place] 0.000 [facility] x10(3)/[employer] LABORATORY Specimen Anatomical Collection Method Collection Time Receive d Time (Source) Location / / Volume Laterality Blood specimen 01/20/2017 11:15 7 (specimen) AM EDT 11:20 AM EDT Resulting Agency Comment Spec In Lab Alvaro Law MD HEMATOLOGY ORDERABLES Performing Organization Address City/[facility]/ZIP Code Phon e Number [address] (ABNORMAL) Phosphorus (01/20/2017 10:30 AM EDT) athologist Signature Phosphorus 2.4 (L) 2.5 - 4.5 [facility] mg/dL [facility] Specimen Anatomical Collection Method Collection Time Receive d Time (Source) Location / / Volume Laterality Blood specimen 01/20/2017 10:30 7 (specimen) AM EDT 10:43 AM EDT Resulting Agency Comment Spec In Lab Alvaro Law MD CHEMISTRY ORDERABLES Performing Organization Address City/[facility]/ZIP Code Phon e Number [address] (ABNORMAL) Magnesium (01/20/2017 10:30 AM EDT) athologist Signature Magnesium 0.59 (L) 0.69 - 1.07 [facility] mmol/L [facility] Specimen Anatomical Collection Method Collection Time Receive d Time (Source) Location / / Volume Laterality Blood specimen 01/20/2017 10:30 7 (specimen) AM EDT 10:43 AM EDT Resulting Agency Comment Spec In Lab Alvaro Law MD CHEMISTRY ORDERABLES Performing Organization Address City/[facility]/ZIP [facility] [place] [place] [address] (ABNORMAL) Basic Metabolic Panel (non-fasting) (01/20/2017 10:30 AM EDT) athologist Signature Glucose Lvl 106 65 - 199 [facility] mg/dL [facility] Comment: Diabetes: >=200 mg/dL plus symp toms BUN 14 8 - 18 mg/dL [facility] Creatinine 0.76 0.70 - 1.20 mg/dL [facility] Comment: Please note that the pediatric reference intervals supplied above were not validated at [facility]. Results from pediatri c patients should be interpreted in conjunction to the patient's age, height and muscle mass. Sodium 138 135 - 145 mmol/L [facility] Potassium 3.8 3.5 - 5.0 mmol/L [facility] Comment: Please note: ??Patients with WBC >100,00 0 may have falsely elevated Potassium levels. ??For accurate Potassium quantif ication in these patients send serum separator tube (gold top) for subsequent determinations. ??Contact the Clinical Chemistry Laboratory if there are any qu estions. Chloride 99 98 - 107 mmol/L [facility] CO2 28 22 - 31 mmol/L [facility] Anion Gap 11 5 - 15 mmol/L [facility] Calcium 8.4 (L) 8.5 - 10.5 mg/dL [facility] Estimated GFR >60 >=60 [facility] Comment: This estimated GFR (eGFR) value was calc ulated using the MDRD equation which has been validated on patients between t he ages of 18 and 70. The MDRD should not be used to assess kidney function in patients < 18 years of age or in patients with extremes of body mass, or in patients with acute kidney failure. This value should be multiplied by 1.2 f or patients. For further information please copy and past e the following links into your internet browser. [email or web address] Specimen Anatomical Collection Method Collection Time Receive d Time (Source) Location / / Volume Laterality Blood specimen 01/20/2017 10:30 7 (specimen) AM EDT 10:43 AM EDT Resulting Agency Comment Spec In Lab Alvaro Law MD CHEMISTRY ORDERABLES Performing Organization Address City/State/[place] [address] POCT Glucose (01/19/2017 9:16 AM EDT) P athologist Signature POC Glucose 134 65 - 199 [facility] mg/dL [facility] Comment: Supplemental ranges: <140 mg/dL before meals <180 mg/dL all other times of the day Specimen Anatomical Collection Method Collection Time Receive d Time (Source) Location / / Volume Laterality Blood specimen 01/19/2017 9:16 AM 017 9:16 (specimen) EDT AM EDT Huan Morris MD POINT OF CARE TEST ORDERABLE S Performing Organization Address City/State/[place] [address] (ABNORMAL) Differential, Automated (01/19/2017 4:00 AM EDT) [facility] Method Time Signature Neutrophils % 66.2 % [facility] Neutr Abs (ANC) 8.22 (H) 1.70 - [facility] 6.10 [facility] x10(3)/[facility] LABORATORY Lymphocytes % 18.5 % [facility] Lymphocytes Abs 2.3 0.9 - 3.2 [facility] x10(3)/[facility] LABORATORY Monocytes % 11.4 % [facility] Monocyte Abs 1.4 (H) 0.3 - 0.9 [facility] x10(3)/[facility] LABORATORY Eosinophils % 2.6 % [facility] Eosinophils Abs 0.3 0.0 - 0.4 [facility] x10(3)/[facility] LABORATORY Basophils % 0.2 % [facility] Basophils Abs 0.0 0.0 - 0.1 [facility] x10(3)/[facility] LABORATORY Immature Gran % 1.10 % [facility] Comment: Immature granulocytes(IG's)percentage an d absolute count will include metamyelocytes, myelocytes, and promyelo cytes. Blood smears from CBCs yielding IG's will be scanned manually for concor dance. If this scan disagrees with the automated IG or if promyelocytes are not ed, a manual differential will be performed. Surek[place] Gran Abs 0.14 (H) 0.00 - 0.04 x10(3)/[facility] LABORATORY Specimen Anatomical Collection Method Collection Time Receive d Time (Source) Location / / Volume Laterality Blood specimen 01/19/2017 4:00 AM 06/07/2 017 4:19 (specimen) EDT AM EDT Resulting Agency Comment Spec In Lab Ramos Kemp APRN HEMATOLOGY ORDERABLES Performing Organization Address City/[facility]/[place] [address] (ABNORMAL) Hemogram (01/19/2017 4:00 AM EDT) Analysis Performed At Patho logist Time Signature WBC 12.4 (H) 4.0 - 9.5 [facility] JAY x10(3)/[facility] LABORATORY RBC 3.13 (L) 4.00 - [facility] JAY 5.21 [facility] x10(6)/[employer] LABORATORY Hemoglobin 9.1 (L) 11.7 - [facility] JAY 15.5 gm/dL [facility] LABORATORY Hematocrit 26.5 (L) 35.7 - [facility] 45.8 % [facility] LABORATORY MCV 84.7 82.6 - [facility] 94.4 [facility] LABORATORY MCH 29.1 27.1 - [employer] 32.0 pg [facility] LABORATORY MCHC 34.3 31.7 - [place] 35.0 gm/dL [facility] LABORATORY Platelets 182 145 - 357 [facility] x10(3)/[facility] LABORATORY RDWSD 43.2 37.0 - [place] 46.0 [facility] LABORATORY RDWCV 14.1 11.5 - [facility] 14.1 % [facility] LABORATORY MPV 11.6 7.6 - 12.9 [facility] nRBC % Auto 0.0 % [facility] LABORATORY nRBC Abs Auto 0.000 0.000 - [place] [facility] 0.000 [facility] x10(3)/[employer] LABORATORY Specimen Anatomical Collection Method Collection Time Receive d Time (Source) Location / / Volume Laterality Blood specimen 01/19/2017 4:00 AM 017 4:19 (specimen) EDT AM EDT Resulting Agency Comment Spec In Lab Ramos Kemp APRN HEMATOLOGY ORDERABLES Performing Organization Address City/State/[place] [address] POCT Glucose (01/19/2017 4:00 AM EDT) athologist Signature POC Glucose 134 65 - 199 [place] mg/dL [facility] LABORATORY Comment: Supplemental ranges: <140 mg/dL before meals <180 mg/dL all other times of the day Specimen Anatomical Collection Method Collection Time Receive d Time (Source) Location / / Volume Laterality Blood specimen 01/19/2017 4:00 AM 017 4:00 (specimen) EDT AM EDT Huan Morris MD POINT OF CARE TEST ORDERABLE S Performing Organization Address City/[facility]/ZIP Code Phon e Number [address] (ABNORMAL) Phosphorus (01/19/2017 4:00 AM EDT) athologist Signature Phosphorus 1.5 (L) 2.5 - 4.5 [facility] JAY mg/dL [facility] LABORATORY Specimen Anatomical Collection Method Collection Time Receive d Time (Source) Location / / Volume Laterality Blood specimen 01/19/2017 4:00 AM 017 4:19 (specimen) EDT AM EDT Resulting Agency Comment Spec In Lab Alvaro Law MD CHEMISTRY ORDERABLES Performing Organization Address City/State/ZIP Code Phon e Number [address] Magnesium (01/19/2017 4:00 AM EDT) athologist Signature Magnesium 0.70 0.69 - 1.07 [place] mmol/L [facility] LABORATORY Specimen Anatomical Collection Method Collection Time Receive d Time (Source) Location / / Volume Laterality Blood specimen 01/19/2017 4:00 AM 017 4:19 (specimen) EDT AM EDT Resulting Agency Comment Spec In Lab Alvaro Law MD CHEMISTRY ORDERABLES Performing Organization Address City/[facility]/[place] [address] (ABNORMAL) Basic Metabolic Panel (non-fasting) (01/19/2017 4:00 AM EDT) athologist Signature Glucose Lvl 138 65 - 199 [facility] mg/dL [facility] LABORATORY Comment: Diabetes: >=200 mg/dL plus symp toms BUN 24 (H) 8 - 18 mg/dL [facility] LABORATORY Creatinine 1.00 0.70 - 1.20 mg/dL [facility] LABORATORY Comment: Please note that the pediatric reference intervals supplied above were not validated at [facility]. Results from pediatri c patients should be interpreted in conjunction to the patient's age, height and muscle mass. Sodium 135 135 - 145 mmol/L [facility] LABORATORY Potassium 3.7 3.5 - 5.0 mmol/L [facility] LABORATORY Comment: Please note: ??Patients with WBC >100,00 0 may have falsely elevated Potassium levels. ??For accurate Potassium quantif ication in these patients send serum separator tube (gold top) for subsequent determinations. ??Contact the Clinical Chemistry Laboratory if there are any qu estions. Chloride 96 (L) 98 - 107 mmol/L [facility] LABORATORY CO2 27 22 - 31 mmol/L [facility] LABORATORY Anion Gap 12 5 - 15 mmol/L [facility] LABORATORY Calcium 8.2 (L) 8.5 - 10.5 mg/dL [facility] LABORATORY Estimated GFR 57 (L) >=60 [facility] LABORATORY Comment: This estimated GFR (eGFR) value was calc ulated using the MDRD equation which has been validated on patients between t he ages of 18 and 70. The MDRD should not be used to assess kidney function in patients < 18 years of age or in patients with extremes of body mass, or in patients with acute kidney failure. This value should be multiplied by 1.2 f or patients. For further information please copy and past e the following links into your internet browser. [email or web address] Specimen Anatomical Collection Method Collection Time Receive d Time (Source) Location / / Volume Laterality Blood specimen 01/19/2017 4:00 AM 017 4:55 (specimen) EDT AM EDT Resulting Agency Comment Spec In Lab Huan Morris MD CHEMISTRY ORDERABLES Performing Organization Address City/State/ZIP Code Phon e Number [address] POCT Glucose (01/19/2017 12:08 AM EDT) athologist Signature POC Glucose 144 65 - 199 [facility] mg/dL [facility] LABORATORY Comment: Supplemental ranges: <140 mg/dL before meals <180 mg/dL all other times of the day Specimen Anatomical Collection Method Collection Time Receive d Time (Source) Location / / Volume Laterality Blood specimen 01/19/2017 12:08 7 (specimen) AM EDT 12:08 AM EDT Huna Morris MD POINT OF CARE TEST ORDERABLE S Performing Organization Address City/State/ZIP Code Phon e Number [address] POCT Glucose (01/18/2017 8:04 PM EDT) athologist Signature POC Glucose 188 65 - 199 [facility] mg/dL [facility] LABORATORY Comment: Supplemental ranges: <140 mg/dL before meals <180 mg/dL all other times of the day Specimen Anatomical Collection Method Collection Time Receive d Time (Source) Location / / Volume Laterality Blood specimen 01/18/2017 8:04 PM 017 8:04 (specimen) EDT PM EDT Huan Morris MD POINT OF CARE TEST ORDERABLE S Performing Organization Address City/State/[place] [address] (ABNORMAL) Basic Metabolic Panel (non-fasting) (01/18/2017 7:25 PM EDT) athologist Signature Glucose Lvl 151 65 - 199 [facility] mg/dL [facility] LABORATORY Comment: Diabetes: >=200 mg/dL plus symp toms BUN 26 (H) 8 - 18 mg/dL [facility] LABORATORY Creatinine 0.92 0.70 - 1.20 mg/dL [facility] LABORATORY Comment: Please note that the pediatric reference intervals supplied above were not validated at [facility]. Results from pediatri c patients should be interpreted in conjunction to the patient's age, height and muscle mass. Sodium 136 135 - 145 mmol/L [facility] LABORATORY Potassium 3.9 3.5 - 5.0 mmol/L [facility] LABORATORY Comment: Please note: ??Patients with WBC >100,00 0 may have falsely elevated Potassium levels. ??For accurate Potassium quantif ication in these patients send serum separator tube (gold top) for subsequent determinations. ??Contact the Clinical Chemistry Laboratory if there are any qu estions. Chloride 99 98 - 107 mmol/L [facility] LABORATORY CO2 25 22 - 31 mmol/L [facility] LABORATORY Anion Gap 12 5 - 15 mmol/L [facility] LABORATORY Calcium 8.3 (L) 8.5 - 10.5 mg/dL [facility] LABORATORY Estimated GFR >60 >=60 [facility] LABORATORY Comment: This estimated GFR (eGFR) value was calc ulated using the MDRD equation which has been validated on patients between t he ages of 18 and 70. The MDRD should not be used to assess kidney function in patients < 18 years of age or in patients with extremes of body mass, or in patients with acute kidney failure. This value should be multiplied by 1.2 f or patients. For further information please copy and past e the following links into your internet browser. [email or web address] Specimen Anatomical Collection Method Collection Time Receive d Time (Source) Location / / Volume Laterality Blood specimen 01/18/2017 7:25 PM 017 7:35 (specimen) EDT PM EDT Resulting Agency Comment Spec In Lab Huan Morris MD CHEMISTRY ORDERABLES Performing Organization Address City/State/[place] [address] POCT Glucose (01/18/2017 3:51 PM EDT) athologist Signature POC Glucose 132 65 - 199 [facility] mg/dL [facility] LABORATORY Comment: Supplemental ranges: <140 mg/dL before meals <180 mg/dL all other times of the day Specimen Anatomical Collection Method Collection Time Receive d Time (Source) Location / / Volume Laterality Blood specimen 01/18/2017 3:51 PM 017 3:51 (specimen) EDT PM EDT Huan Morris MD POINT OF CARE TEST ORDERABLE S Performing Organization Address City/State/[place] [address] (ABNORMAL) Basic Metabolic Panel (non-fasting) (01/18/2017 12:29 PM EDT) athologist Signature Glucose Lvl 131 65 - 199 [facility] mg/dL [facility] LABORATORY Comment: Diabetes: >=200 mg/dL plus symp toms BUN 27 (H) 8 - 18 mg/dL [facility] LABORATORY Creatinine 0.98 0.70 - 1.20 mg/dL [facility] LABORATORY Comment: Please note that the pediatric reference intervals supplied above were not validated at [facility]. Results from pediatri c patients should be interpreted in conjunction to the patient's age, height and muscle mass. Sodium 134 (L) 135 - 145 mmol/L [facility] LABORATORY Potassium 3.8 3.5 - 5.0 mmol/L [facility] LABORATORY Comment: Please note: ??Patients with WBC >100,00 0 may have falsely elevated Potassium levels. ??For accurate Potassium quantif ication in these patients send serum separator tube (gold top) for subsequent determinations. ??Contact the Clinical Chemistry Laboratory if there are any qu estions. Chloride 99 98 - 107 mmol/L [facility] LABORATORY CO2 22 22 - 31 mmol/L [facility] LABORATORY Anion Gap 13 5 - 15 mmol/L [facility] LABORATORY Calcium 7.9 (L) 8.5 - 10.5 mg/dL [facility] LABORATORY Estimated GFR 58 (L) >=60 [facility] LABORATORY Comment: This estimated GFR (eGFR) value was calc ulated using the MDRD equation which has been validated on patients between t he ages of 18 and 70. The MDRD should not be used to assess kidney function in patients < 18 years of age or in patients with extremes of body mass, or in patients with acute kidney failure. This value should be multiplied by 1.2 f or patients. For further information please copy and past e the following links into your internet browser. [email or web address] Specimen Anatomical Collection Method Collection Time Receive d Time (Source) Location / / Volume Laterality Blood specimen 01/18/2017 12:29 7 (specimen) PM EDT 12:46 PM EDT Resulting Agency Comment Spec In Lab Huan Morris MD CHEMISTRY ORDERABLES Performing Organization Address City/[facility] Phon e Number [address] POCT Glucose (01/18/2017 12:05 PM EDT) P athologist Signature POC Glucose 139 65 - 199 [facility] mg/dL [facility] LABORATORY Comment: Supplemental ranges: <140 mg/dL before meals <180 mg/dL all other times of the day Specimen Anatomical Collection Method Collection Time Receive d Time (Source) Location / / Volume Laterality Blood specimen 01/18/2017 12:05 7 (specimen) PM EDT 12:05 PM EDT Huan Morris MD POINT OF CARE TEST ORDERABLE S Performing Organization Address City/[facility]/[place] [address] POCT Glucose (01/18/2017 7:45 AM EDT) P athologist Signature POC Glucose 169 65 - 199 [place] mg/dL [facility] LABORATORY Comment: Supplemental ranges: <140 mg/dL before meals <180 mg/dL all other times of the day Specimen Anatomical Collection Method Collection Time Receive d Time (Source) Location / / Volume Laterality Blood specimen 01/18/2017 7:45 AM 017 7:45 (specimen) EDT AM EDT Huan Morris MD POINT OF CARE TEST ORDERABLE S Performing Organization Address City/[facility]/ZIP Code Phon e Number [address] Vancomycin, trough (01/18/2017 5:00 AM EDT) P athologist Signature Vanc Trough 11.1 mg/L [facility] LABORATORY Comment: Therapeutic range for complicated infect ions such as bacteremia, endocarditis, osteomyelitis, meningitis, and hospital- acquired pneumonia caused by S. aureus: 15-20 mg/L Therapeutic range for other indications: 10-15 mg/L Toxic: >25mg/L Reference: Vancomycin Therapeutic Monitoring: Larissa vazquez and Recommendations from the ASHP, IDSA and SIDP Task Force. ??Am J Health- Syst Pharm. 2009; 66:82-98 Specimen Anatomical Collection Method Collection Time Receive d Time (Source) Location / / Volume Laterality Blood specimen 01/18/2017 5:00 AM 017 5:17 (specimen) EDT AM EDT Resulting Agency Comment Spec In Lab Ramos Kemp APRN CHEMISTRY ORDERABLES Performing Organization Address City/State/ZIP Code Phon e Number [address] POCT Glucose (01/18/2017 4:04 AM EDT) athologist [facility] POC Glucose 187 65 - 199 [facility] mg/dL [facility] LABORATORY Comment: Supplemental ranges: <140 mg/dL before meals <180 mg/dL all other times of the day Specimen Anatomical Collection Method Collection Time Receive d Time (Source) Location / / Volume Laterality Blood specimen 01/18/2017 4:04 AM 017 4:04 (specimen) EDT AM EDT Huan Morris MD POINT OF CARE TEST ORDERABLE S Performing Organization Address City/State/ZIP Code Phon e Number [address] (ABNORMAL) Differential, Automated (01/18/2017 4:00 AM EDT) Patholo gist Method Time Signature Neutrophils % 85.6 % [facility] LABORATORY Neutr Abs (ANC) 13.17 (H) 1.70 - [facility] 6.10 [facility] x10(3)/[facility] LABORATORY Lymphocytes % 8.4 % [facility] LABORATORY Lymphocytes Abs 1.3 0.9 - 3.2 [facility] x10(3)/[facility] LABORATORY Monocytes % 4.7 % [facility] LABORATORY Monocyte Abs 0.7 0.3 - 0.9 [facility] x10(3)/[facility] LABORATORY Eosinophils % 0.1 % [facility] LABORATORY Eosinophils Abs 0.0 0.0 - 0.4 [facility] x10(3)/[facility] LABORATORY Basophils % 0.1 % [facility] LABORATORY Basophils Abs 0.0 0.0 - 0.1 [facility] x10(3)/[facility] LABORATORY Immature Gran % 1.10 % [facility] LABORATORY Comment: Immature granulocytes(IG's)percentage an d absolute count will include metamyelocytes, myelocytes, and promyelo cytes. Blood smears from CBCs yielding IG's will be scanned manually for concor dance. If this scan disagrees with the automated IG or if promyelocytes are not ed, a manual differential will be performed. [place] Gran Abs 0.17 (H) 0.00 - 0.04 x10(3)/[facility] LABORATORY Specimen Anatomical Collection Method Collection Time Receive d Time (Source) Location / / Volume Laterality Blood specimen 01/18/2017 4:00 AM 017 4:10 (specimen) EDT AM EDT Resulting Agency Comment Spec In Lab Ramos Kemp APRN HEMATOLOGY ORDERABLES Performing Organization Address City/State/[place] [address] (ABNORMAL) Hemogram (01/18/2017 4:00 AM EDT) Analysis Performed At Patho logist Time Signature WBC 15.4 (H) 4.0 - 9.5 [facility] x10(3)/[facility] LABORATORY RBC 3.55 (L) 4.00 - [facility] 5.21 [facility] x10(6)/[employer] LABORATORY Hemoglobin 10.4 (L) 11.7 - [facility] 15.5 gm/dL [facility] LABORATORY Hematocrit 30.0 (L) 35.7 - [place] 45.8 % [facility] LABORATORY MCV 84.5 82.6 - [place] 94.4 [facility] LABORATORY MCH 29.3 27.1 - [place] 32.0 pg [facility] LABORATORY MCHC 34.7 31.7 - [place] 35.0 gm/dL [facility] LABORATORY Platelets 198 145 - 357 [facility] x10(3)/[facility] LABORATORY RDWSD 42.5 37.0 - [place] 46.0 [facility] LABORATORY RDWCV 13.6 11.5 - [place] 14.1 % [facility] LABORATORY MPV 11.3 7.6 - 12.9 [facility] LABORATORY nRBC % Auto 0.0 % [facility] LABORATORY nRBC Abs Auto 0.000 0.000 - [place] 0.000 [facility] x10(3)/[employer] LABORATORY Specimen Anatomical Collection Method Collection Time Receive d Time (Source) Location / / Volume Laterality Blood specimen 01/18/2017 4:00 AM 017 4:10 (specimen) EDT AM EDT Resulting Agency Comment Spec In Lab Ramos Kemp APRN HEMATOLOGY ORDERABLES Performing Organization Address City/State/ZIP Code Phon e Number [address] (ABNORMAL) Phosphorus (01/18/2017 4:00 AM EDT) P athologist Signature Phosphorus 2.4 (L) 2.5 - 4.5 [facility] mg/dL [facility] LABORATORY Specimen Anatomical Collection Method Collection Time Receive d Time (Source) Location / / Volume Laterality Blood specimen 01/18/2017 4:00 AM 017 4:10 (specimen) EDT AM EDT Resulting Agency Comment Spec In Lab Alvaro Law MD CHEMISTRY ORDERABLES Performing Organization Address City/State/ZIP Code Phon e Number [address] Magnesium (01/18/2017 4:00 AM EDT) P athologist Signature Magnesium 0.71 0.69 - 1.07 [facility] mmol/L [facility] LABORATORY Specimen Anatomical Collection Method Collection Time Receive d Time (Source) Location / / Volume Laterality Blood specimen 01/18/2017 4:00 AM 017 4:10 (specimen) EDT AM EDT Resulting Agency Comment Spec In Lab Alvaro Law MD CHEMISTRY ORDERABLES Performing Organization Address City/State/[place] [address] (ABNORMAL) Basic Metabolic Panel (non-fasting) (01/18/2017 4:00 AM EDT) athologist Signature Glucose Lvl 188 65 - 199 [facility] mg/dL [facility] LABORATORY Comment: Diabetes: >=200 mg/dL plus symp toms BUN 38 (H) 8 - 18 mg/dL [facility] LABORATORY Creatinine 1.32 (H) 0.70 - 1.20 mg/dL [facility] LABORATORY Comment: Please note that the pediatric reference intervals supplied above were not validated at [facility]. Results from pediatri c patients should be interpreted in conjunction to the patient's age, height and muscle mass. Sodium 133 (L) 135 - 145 mmol/L [facility] LABORATORY Potassium 4.5 3.5 - 5.0 mmol/L [facility] LABORATORY Comment: Please note: ??Patients with WBC >100,00 0 may have falsely elevated Potassium levels. ??For accurate Potassium quantif ication in these patients send serum separator tube (gold top) for subsequent determinations. ??Contact the Clinical Chemistry Laboratory if there are any qu estions. Chloride 94 (L) 98 - 107 mmol/L [facility] LABORATORY CO2 22 22 - 31 mmol/L [facility] LABORATORY Anion Gap 17 (H) 5 - 15 mmol/L [facility] LABORATORY Calcium 8.4 (L) 8.5 - 10.5 mg/dL [facility] LABORATORY Estimated GFR 41 (L) >=60 [facility] LABORATORY Comment: This estimated GFR (eGFR) value was calc ulated using the MDRD equation which has been validated on patients between t he ages of 18 and 70. The MDRD should not be used to assess kidney function in patients < 18 years of age or in patients with extremes of body mass, or in patients with acute kidney failure. This value should be multiplied by 1.2 f or patients. For further information please copy and past e the following links into your internet browser. [email or web address] Specimen Anatomical Collection Method Collection Time Receive d Time (Source) Location / / Volume Laterality Blood specimen 01/18/2017 4:00 AM 017 4:10 (specimen) EDT AM EDT Resulting Agency Comment Spec In Lab Huan Morris MD CHEMISTRY ORDERABLES Performing Organization Address City/[facility]/ZIP Code Phon e Number [address] POCT Glucose (01/18/2017 12:05 AM EDT) athologist Signature POC Glucose 190 65 - 199 [facility] mg[facility] LABORATORY Comment: Supplemental ranges: <140 mg/dL before meals <180 mg/dL all other times of the day Specimen Anatomical Collection Method Collection Time Receive d Time (Source) Location / / Volume Laterality Blood specimen 01/18/2017 12:05 7 (specimen) AM EDT 12:05 AM EDT Huan Morris MD POINT OF CARE TEST ORDERABLE S Performing Organization Address City/[facility]/[place] [address] (ABNORMAL) Basic Metabolic Panel (non-fasting) (01/17/2017 6:28 PM EDT) P athologist Signature Glucose Lvl 219 (H) 65 - 199 [facility] Comment: Diabetes: >=200 mg/dL plus symp toms BUN 59 (H) 8 - 18 mg/dL [facility] LABORATORY Creatinine 2.11 (H) 0.70 - 1.20 mg/dL [facility] LABORATORY Comment: result rechecked-ga Please note that the pediatric reference intervals supplied above were not validated at [facility]. Results from pediatri c patients should be interpreted in conjunction to the patient's age, height and muscle mass. Sodium 132 (L) 135 - 145 mmol/L [facility] LABORATORY Potassium 4.9 3.5 - 5.0 mmol/L [facility] LABORATORY Comment: Please note: ??Patients with WBC >100,00 0 may have falsely elevated Potassium levels. ??For accurate Potassium quantif ication in these patients send serum separator tube (gold top) for subsequent determinations. ??Contact the Clinical Chemistry Laboratory if there are any qu estions. Chloride 95 (L) 98 - 107 mmol/L [facility] LABORATORY CO2 17 (L) 22 - 31 mmol/L [facility] LABORATORY Anion Gap 20 (H) 5 - 15 mmol/L [facility] LABORATORY Calcium 7.9 (L) 8.5 - 10.5 mg/dL [facility] LABORATORY Estimated GFR 24 (L) >=60 [facility] LABORATORY Comment: This estimated GFR (eGFR) value was calc ulated using the MDRD equation which has been validated on patients between t he ages of 18 and 70. The MDRD should not be used to assess kidney function in patients < 18 years of age or in patients with extremes of body mass, or in patients with acute kidney failure. This value should be multiplied by 1.2 f or patients. For further information please copy and past e the following links into your internet browser. [email or web address] Specimen Anatomical Collection Method Collection Time Receive d Time (Source) Location / / Volume Laterality Blood specimen 01/17/2017 6:28 PM 017 6:48 (specimen) EDT PM EDT Resulting Agency Comment Spec In Lab Huan Morris MD CHEMISTRY ORDERABLES Performing Organization Address City/State/[place] [address] (ABNORMAL) Urinalysis with reflex Culture (01/17/2017 6:23 PM EDT) Patholo gist Method Time Signature Glucose UA 50 (A) Negative [facility] mg/dL [facility] Protein UA Negative Negative [facility] mg/dL [facility] Bilirubin UA Negative Negative [facility] mg/dL [facility] Comment: Clinical correlation required for positi ve Urine Bilirubin results as false positive may occur with some drugs and d rug related products. If a false positive is suspected a serum total bili armas should be considered if clinically indicated. Urobilinogen UA Normal Normal mg/dL [facility] pH UA 6.0 5.0 - 8.0 [facility] Blood UA Moderate (A) Negative mg/dL [facility] Ketones UA 20 (A) Negative mg/dL [facility] Nitrite UA Negative Negative [facility] Leukocytes UA Trace (A) Negative [facility]ORY Appearance UA Clear Clear [facility] Spec [place] UA 1.011 1.002 - 1.030 [facility] Color UA Straw Yellow [facility] RBC UA 6 (H) 0 - 4 /HPF [facility] WBC UA 1 0 - 5 /HPF [facility] Squam Epith UA 1 <=4 /HPF [facility] Culture Reflexed No [facility] Specimen (Source) Anatomical Collection Method Collection Time Re ceived Time Location / / Volume Laterality Urine specimen 01/17/2017 6:23 01/17/2017 6:45 obtained via PM EDT PM EDT indwelling urinary catheter (specimen) Resulting Agency Comment Spec In Lab Huan Morris MD URINE ORDERABLES Performing Organization Address City/State/[place] [address] (ABNORMAL) POCT Glucose (01/17/2017 6:20 PM EDT) P athologist Signature POC Glucose 232 (H) 65 - 199 [facility] mg/dL [facility] Comment: Supplemental ranges: <140 mg/dL before meals <180 mg/dL all other times of the day Specimen Anatomical Collection Method Collection Time Receive d Time (Source) Location / / Volume Laterality Blood specimen 01/17/2017 6:20 PM 017 6:20 (specimen) EDT PM EDT Huan Morris MD POINT OF CARE TEST ORDERABLE S Performing Organization Address City/[facility]/[place]IP [place] [address] (ABNORMAL) Urinalysis without microscopic (01/17/2017 1:10 PM EDT) [facility] Method Time Signature Glucose UA Negative Negative [facility] mg/dL [facility] Protein UA Negative Negative [facility] mg/dL [facility] Bilirubin UA Negative Negative [facility] mg/dL [facility] Comment: Clinical correlation required for positi ve Urine Bilirubin results as false positive may occur with some drugs and d rug related products. If a false positive is suspected a serum total bili armas should be considered if clinically indicated. Urobilinogen UA Normal Normal mg/dL [facility] pH UA 6.0 5.0 - 8.0 [facility] Blood UA Moderate (A) Negative mg/dL [facility] Ketones UA 5 (A) Negative mg/dL [facility] Nitrite UA Negative Negative [facility] Leukocytes UA Moderate (A) Negative [facility] LABORATORY Appearance UA Clear Clear [facility] Spec [place] UA 1.010 1.002 - 1.030 [facility] Color UA Straw Yellow [facility] Specimen Anatomical Collection Method Collection Time Receive d Time (Source) Location / / Volume Laterality Urine specimen 01/17/2017 1:10 PM 017 1:24 (specimen) EDT PM EDT Resulting Agency Comment Spec In Lab Ramos Kemp UNDERGROUND MINE MACHINERY MECHANIC URINE ORDERABLES Performing Organization Address City/[facility]/[place] [address] (ABNORMAL) BLOOD GAS 2 ARTERIAL (01/17/2017 1:07 PM EDT) Analysis Performed At Patho logist Time Signature pH Art 7.41 7.35 - [facility] 7.45 [facility] pCO2 Art 26 (L) 35 - 45 [facility] mmHg [facility] pO2 Art 92 85 - 104 [facility] LABORATORY HCO3 Art 16.2 (L) 20.0 - [facility] 26.0 [facility] mmol/L [facility] BE Art -8.4 (L) -3.0 - 3.0 [facility] mmol/L [facility] Hgb Blood Gas 11.0 (L) 11.7 - [facility] 15.5 gm/dL [facility] O2HB Art 95.5 94.0 - [facility] 97.0 % [facility] COHB Art 0.3 % [facility] Comment: Nonsmokers: 0.5-1.5% COHB Smokers: Variable, but usually less than 10% Toxic: 20-30% COHB Lethal: Greater than 60% COHB METHB Art 0.5 <=1.5 % [facility] Na Whole Blood 130 (L) 135 - 145 mmol/L [facility] K Whole Blood 4.2 3.5 - 5.0 mmol/L [facility] Comment: Please note: Patients with WBC >100,000 may have falsely elevated Potassium levels. Contact the Clinical Chemistry L aboratory if there are any questions. ICa Whole Blood 1.03 (L) 1.15 - 1.33 mmol/L [facility] Comment: Note: ??Total bilirubin higher than 20 m g/dL may lead to falsely low ionized calcium. CL Whole Blood 104 98 - 107 mmol/L [facility] Gluc Whole Bld 144 65 - 199 mg/dL [facility] Comment: Diabetes: >=200 mg/dL plus symp toms. Lactate WB 1.7 0.5 - 2.2 mmol/L [facility] Flow Art 2.0 LPM [facility] Specimen Anatomical Collection Method Collection Time Receive d Time (Source) Location / / Volume Laterality Blood specimen 01/17/2017 1:07 PM 017 1:07 (specimen) EDT PM EDT Huan Morris MD CHEMISTRY ORDERABLES Performing Organization Address City/State/[place] [address] Request For 2nd Read CT Chest (01/17/2017 12:34 PM EDT) Anatomical Region Laterality Modality Chest SO Specimen (Source) Anatomical Location Collection Method / Collectio n Time Received Time / Laterality Volume Impressions 01/17/2017 3:15 PM EDT 1. ??No pulmonary embolism. 2. ??Mild cardiomegaly. 3. ??Distended gallbladder. Narrative 01/17/2017 3:15 PM EDT EXAMINATION: REQUEST FOR 2ND READ CT CHEST CLINICAL HISTORY: Read from outside hosp ital reports PE, requesting second read to confirm and help guide anticoagulatio n and clnical management of patient; What Modality is the exam? CT Scan; Body Part (please add comments as necessary): Chest; I believe a reinterpr etation of this exam may alter care of Patient. Yes TECHNIQUE: Helical CT of the chest with intravenous contrast was performed at [facility]. COMPARISON: CTA of the chest 02/19/16 FINDINGS: Pulmonary arteries: Normal in caliber. N o pulmonary arterial filling defects. On series 5 image 29, there is an unopacifi ed cylindrical structure in the left lower lobe adjacent to segmental arteria l branches, possibly a mucous impacted airway. Other cardiovascular structures: The hea rt is mildly enlarged. No thoracic aortic aneurysm. Pulmonary parenchyma: Low volumes in bot h lungs limit evaluation of the parenchyma. There are mild atelectatic c hanges. No mass or focal consolidation. There is a 3 mm calcified granuloma in t he left lower lobe. Airways: Underdistended central airways compatible with expiratory phase Pleura: No effusions Lymph nodes: None enlarged Other mediastinal structures: Enlarged t hyroid gland, left lobe larger than the right lobe, with retrosternal extension. Coarse calcifications bilaterally. No discrete nodule is identified. These fin dings are unchanged since 08/24/12. Upper abdomen: Distended gallbladder. At rophic pancreas mostly replaced by fat. Skeletal structures: Degenerative change s in spine. No suspicious lesions. Procedure Note Tomás Hall MD - 01/17/2017Format ting of this note might be different from the original. EXAMINATION: REQUEST FOR 2ND READ CT [facility] CLINICAL HISTORY: Read from outside hosp ital reports PE, requesting second read to confirm and help guide anticoagulatio n and clnical management of patient; What Modality is the exam? CT Scan; Body Part (please add comments as necessary): Chest; I believe a reinterpr etation of this exam may alter care of Patient. Yes TECHNIQUE: Helical CT of the chest with intravenous contrast was performed at [facility]. COMPARISON: CTA of the chest 02/19/16 FINDINGS: Pulmonary arteries: Normal in caliber. N o pulmonary arterial filling defects. On series 5 image 29, there is an unopacifi ed cylindrical structure in the left lower lobe adjacent to segmental arteria l branches, possibly a mucous impacted airway. Other cardiovascular structures: The hea rt is mildly enlarged. No thoracic aortic aneurysm. Pulmonary parenchyma: Low volumes in bot h lungs limit evaluation of the parenchyma. There are mild atelectatic c hanges. No mass or focal consolidation. There is a 3 mm calcified granuloma in t he left lower lobe. Airways: Underdistended central airways compatible with expiratory phase Pleura: No effusions Lymph nodes: None enlarged Other mediastinal structures: Enlarged t hyroid gland, left lobe larger than the right lobe, with retrosternal extension. Coarse calcifications bilaterally. No discrete nodule is identified. These fin dings are unchanged since 08/24/12. Upper abdomen: Distended gallbladder. At rophic pancreas mostly replaced by fat. Skeletal structures: Degenerative change s in spine. No suspicious lesions. IMPRESSION 1. No pulmonary embolism. 2. Mild cardiomegaly. 3. Distended gallbladder. Luther Handy MD IMG OUTSIDE INTERPRETATION O RDERABLES POCT Glucose (01/17/2017 12:00 PM EDT) athologist Signature POC Glucose 167 65 - 199 [facility] mg/dL [facility] Comment: Supplemental ranges: <140 mg/dL before meals <180 mg/dL all other times of the day Specimen Anatomical Collection Method Collection Time Receive d Time (Source) Location / / Volume Laterality Blood specimen 01/17/2017 12:00 7 (specimen) PM EDT 12:00 PM EDT Luther Handy MD POINT OF CARE TEST ORDERABLE S Performing Organization Address City/State/[place] [address] (ABNORMAL) Hemogram (01/17/2017 12:00 PM EDT) Analysis Performed At Patho logist Time Signature WBC 24.0 (H) 4.0 - 9.5 [facility] x[facility](3[facility] LABORATORY RBC 3.99 (L) 4.00 - [place] 5.21 [facility] x10(6)/[employer] LABORATORY Hemoglobin 11.5 (L) 11.7 - [facility] 15.5 gm/dL [facility] Hematocrit 33.1 (L) 35.7 - [facility] 45.8 % [facility] MCV 83.0 82.6 - [facility] 94.4 [facility] LABORATORY MCH 28.8 27.1 - [place] 32.0 pg [facility] MCHC 34.7 31.7 - [facility] JAY 35.0 gm/dL [facility] Platelets 265 145 - 357 [facility] x10(3)/[facility] LABORATORY RDWSD 42.5 37.0 - [facility] JAY 46.0 [facility] LABORATORY RDWCV 13.9 11.5 - [facility] JAY 14.1 % [facility] LAB[facility]AT[facility] MPV 11.5 7.6 - 12.9 [facility] LABORATORY nRBC % Auto 0.0 % [facility] LABORATORY nRBC Abs Auto 0.000 0.000 - [facility] JAY 0.000 [facility] x10(3)/[employer] LABORATORY Specimen Anatomical Collection Method Collection Time Receive d Time (Source) Location / / Volume Laterality Blood specimen 01/17/2017 12:00 01/17/201 7 (specimen) PM EDT 12:11 PM EDT Resulting Agency Comment Spec In Lab Luther Handy MD HEMATOLOGY ORDERABLES Performing Organization Address City/State/[place] [address] (ABNORMAL) Sedimentation rate (01/17/2017 12:00 PM EDT) P athologist Signature Sed Rate 51 (H) 0 - 20 [facility] mm/hr [facility] Specimen Anatomical Collection Method Collection Time Receive d Time (Source) Location / / Volume Laterality Blood specimen 01/17/2017 12:00 7 (specimen) PM EDT 12:11 PM EDT Resulting Agency Comment Spec In Lab Luther Handy MD HEMATOLOGY ORDERABLES Performing Organization Address City/[facility]/ZIP Code Phon e Number [address] Proteinase-3 Antibody (01/17/2017 12:00 PM EDT) athologist Signature PR3 Ab 2.3 <=20.0 [facility] LABORATORY Specimen Anatomical Collection Method Collection Time Receive d Time (Source) Location / / Volume Laterality Blood specimen 01/17/2017 12:00 7 1:41 (specimen) PM EDT PM EDT Resulting Agency Comment Spec In Lab Luther Handy MD CHEMISTRY ORDERABLES Performing Organization Address City/[facility]/ZIP Code Phon e Number [address] Myeloperoxidase Ab (01/17/2017 12:00 PM EDT) P athologist Signature MPO Ab <2.0 <=20.0 [facility] LABORATORY Specimen Anatomical Collection Method Collection Time Receive d Time (Source) Location / / Volume Laterality Blood specimen 01/17/2017 12:00 7 1:41 (specimen) PM EDT PM EDT Resulting Agency Comment Spec In Lab Luther Handy MD CHEMISTRY ORDERABLES Performing Organization Address City/State/ZIP Code Phon e Number [address] Cytoplasmic Neutrophilic Ab (01/17/2017 12:00 PM EDT) P athologist Signature C-ANCA Negative Negative [facility]ORY Comment: Test Performed by: [facility] - [address] [address] P-ANCA Negative Negative [facility] Comment: Negative for cANCA and pANCA patterns by immunofluorescence. ADDITIONAL INFORMATIO N This test was developed and its performa nce characteristics determined by [facility] in a manner co nsistent with CLIA requirements. This test has not been vicki ared or approved by the U.S. Food and Drug Administration. Test Performed by: [facility] - [address] [address] Specimen Anatomical Collection Method Collection Time Receive d Time (Source) Location / / Volume Laterality Blood specimen 01/17/2017 12:00 7 4:04 (specimen) PM EDT PM EDT Resulting Agency Comment Spec In Lab Luther Handy MD CHEMISTRY ORDERABLES Performing Organization Address City/[facility] [place] [address] Glomerular Basement Membrane Antibody IgG (01/17/2017 12:00 PM EDT) athologist Signature GBM Ab <0.2 <1.0 [facility] (Negative) [facility] LABORATORY Comment: Test Performed by: [facility] - [address] [address] Specimen Anatomical Collection Method Collection Time Receive d Time (Source) Location / / Volume Laterality Blood specimen 01/17/2017 12:00 7 4:04 (specimen) PM EDT PM EDT Resulting Agency Comment Spec In Lab Luther Handy MD IMMUNOLOGY ORDERABLES Performing Organization Address City/[facility]/ZIP [facility] [place] [address] (ABNORMAL) Basic Metabolic Panel (non-fasting) (01/17/2017 12:00 PM EDT) athologist Signature Glucose Lvl 167 65 - 199 [facility] mg/dL [facility] Comment: Diabetes: >=200 mg/dL plus symp toms BUN 84 (H) 8 - 18 mg/dL [facility] LABORATORY Creatinine 3.29 (H) 0.70 - 1.20 mg/dL [facility] Comment: Please note that the pediatric reference intervals supplied above were not validated at [facility]. Results from pediatri c patients should be interpreted in conjunction to the patient's age, height and muscle mass. Sodium 129 (L) 135 - 145 mmol/L [facility] Potassium 5.1 (H) 3.5 - 5.0 mmol/L [facility] Comment: Please note: ??Patients with WBC >100,00 0 may have falsely elevated Potassium levels. ??For accurate Potassium quantif ication in these patients send serum separator tube (gold top) for subsequent determinations. ??Contact the Clinical Chemistry Laboratory if there are any qu estions. Chloride 91 (L) 98 - 107 mmol/L [facility] CO2 16 (L) 22 - 31 mmol/L [facility] Anion Gap 22 (H) 5 - 15 mmol/L [facility] Calcium 8.1 (L) 8.5 - 10.5 mg/dL [facility] Estimated GFR 14 (L) >=60 [facility] Comment: This estimated GFR (eGFR) value was calc ulated using the MDRD equation which has been validated on patients between t he ages of 18 and 70. The MDRD should not be used to assess kidney function in patients < 18 years of age or in patients with extremes of body mass, or in patients with acute kidney failure. This value should be multiplied by 1.2 f or patients. For further information please copy and past e the following links into your internet browser. [email or web address] Specimen Anatomical Collection Method Collection Time Receive d Time (Source) Location / / Volume Laterality Blood specimen 01/17/2017 12:00 7 (specimen) PM EDT 12:11 PM EDT Resulting Agency Comment Spec In Lab Ramos Kemp UNDERGROUND MINE MACHINERY MECHANIC CHEMISTRY ORDERABLES Performing Organization Address City/State/[place] [address] US Retroperitoneal Complete (01/17/2017 11:35 AM EDT) Anatomical Region Laterality Modality Abdomen Ultrasound Specimen (Source) Anatomical Collection Method Collection Time Re ceived Time Location / / Volume Laterality 01/17/2017 11:29 AM EDT Impressions 01/17/2017 11:45 AM EDT ??Highly limited study due to patient's body habitus andinability. No hydronephrosis. ?Stephanie Hickey MD Electronically Signed Final Report ?? 11:44 am Narrative 01/17/2017 11:45 AM EDT Renal ? (Signed Final 01/17/2017 11:44 am) PATIENT INFO: ID #: ? [id number] ?: ??[birth year] (61 yrs) Name: ? CYN Magana YOUNG ? Visit Date: 01/17/2017 11:29 am PERFORMED BY: Performed By: ? Matt Carroll RDMS Attending: ?Segun GARCIA, Stephanie Morton . Referred By: ?JABARI CONNORS Location: ? [place] SERVICE(S) PROVIDED: ??URETRO - Retroperitoneal Complete - I [id number] ? [id number] INDICATIONS: ??JODY RIGHT KIDNEY: Cortical Thickness: ?Limited vis ualization Cortical Echogenicity: ?? Limited visua lization Hydronephrosis: ?No sonogr aphic evidence Comment: ?Unable to obtain true vinh surement due to patient ? position and body hab itus. LEFT KIDNEY: Size (cm) ?L: ??10.0 Cortical Thickness: ?Limited vis ualization Cortical Echogenicity: ?? Limited visua lization Hydronephrosis: ?No sonogr aphic evidence URINARY BLADDER: Comment: ?Not distended. ??Oskar adamson theter present, but limited ? visualization. Procedure Note Stephanie Cast MD - 01/17/2017Formchina butterfield of this note might be different from the original. Renal (Signed Final 01/17/2017 11:44 am ) PATIENT INFO: ID #: [id number] : [birth year] (61 y rs) Name: CYN PRADO Visit Date: 01/18/20 17 11:29 am PERFORMED BY: Performed By: Juli Carroll RDMS Attending: Stephanie Cast MD Referred By: JABARI CONNORS Location: [place] SERVICE(S) PROVIDED: URETRO - Retroperitoneal Complete - [id number] INDICATIONS: JODY RIGHT KIDNEY: Cortical Thickness: Limited visualizati on Cortical Echogenicity: Limited visualiz ation Hydronephrosis: No sonographic evidence Comment: Unable to obtain true measurem ent due to patient position and body habitus. LEFT KIDNEY: Size (cm) L: 10.0 Cortical Thickness: Limited visualizati on Cortical Echogenicity: Limited visualiz ation Hydronephrosis: No sonographic evidence URINARY BLADDER: Comment: Not distended. Schmitt catheter present, but limited visualization. IMPRESSION Highly limited study due to patient's b mel habitus andinability. No hydronephrosis. Stephanie Cast MD Electronically Signed Final Report 01/17 11:44 am Jabari Connors UNDERGROUND MINE MACHINERY MECHANIC IMG US GEN ORDERABLES ECHOCARDIOGRAM COMPLETE W CONTRAST (01/17/2017 11:30 AM EDT) P athologist Signature EF 75 [facility] Specimen (Source) Anatomical Location Collection Method / Collectio n Time Received Time / Laterality Volume 01/17/2017 Narrative [facility] - 01/17/2017 12:41 PM ED T Procedure: ?Transthoracic Echocardiogram Patient: ?YOUNG CYN A ?(Age): 1955(61y) Med Rec#: ? [id number] ?Sex: ?F ? Site Loc: ? [facility] ?Ht / Wt: ??160(cm)/184(kg) Pt. Loc: ?Adult Floor ? BSA: ?2.61 Study Date: ?? 01/17/2017 ?Pt. Type: Inpatient Tape: ? Referring: Jabari Connors Referring: MADAN TAYLOR J Reading: Krunal Shaw ([id number]) Java Flex Developer: Luigi Ramirez Diagnosis: *ICD-10-PCS Hypotension, unspecified (I 95.9) BP: ? 100/60 SUMMARY: 1. Technically limited ??Optison contras t (one 3 ml vial) was used to enhance endocardial definition. 2. Mild concentric left ventricular hype rtrophy is observed. ??Global left ventricular systolic function appea rs hyperdynamic. ??Ejection fraction is estimated to be 75%. ??There are no left ventricular segmental wall motion abnormalities. 3. The right ventricle is probably diane l in size. Right ventricular global systolic function is normal. 4. The left atrium is moderately dilated .46ml/m2 5. There is no hemodynamically significa nt valve disease. 6. See remainder of report for additiona l findings. Findings ? : Study Quality: ? Technically limited Left Ventricle: ? The left ventricul ar chamber size is normal. ?Mild concentric left ventricular h ypertrophy is observed. ?No ventricular septal defect is vi sualized. ?Global left ventricular systolic f unction appears hyperdynamic. Ejection fraction is estimated to be 75% . ?There are no left ventricular segm ental wall motion abnormalities. Left Atrium: ? The left atrium is mo derately dilated.46ml/m2 Right Ventricle: ? The right ventric le is probably normal in size. ?Right ventricular global systolic function is normal. ?There is evidence of moderate pulm onary hypertension. ?The estimated pulmonary artery sys tolic pressure is 56 mmHg. ?The estimated right atrial pressur e is 3 mmHg. Right Atrium: ? The right atrium is not well visualized. Aortic Valve: ? The aortic valve is probably tricuspid. ?Systolic excursion of the aortic v alve is normal. ?There is no evidence of aortic orestes ve stenosis. ?There is no evidence of aortic reg urgitation. Mitral Valve: ? The mitral valve luz maria flets are mildly thickened. ?There is no evidence of mitral yang nosis. ?There is no evidence of mitral reg urgitation. Tricuspid Valve: ? The tricuspid orestes ve is probably normal. ?There is no tricuspid valve stenos is. ?There is trace tricuspid regurgita tion present. Pulmonic Valve: ? The pulmonic valve is not well visualized. Pericardium: ? The pericardium appea rs normal and there is no evidence of a pericardial effusion. Aorta: ? The aortic root is normal i n size. ?The ascending aorta is normal in s ize. Pulmonary Artery: ? The main pulmona ry artery is not well visualized. Venous: ? The inferior vena cava guerita ears normal in size. ?There is a greater than 50% respir atory change in the inferior vena cava dimension. Misc: ? See remainder of report for additional findings. ?Two-dimensional echo, spectral Dop pler and color Doppler performed. ?Optison contrast (one 3 ml vial) w as used to enhance endocardial definition. Excess contrast was discarde d. Chambers 2D ?Value ?Units (Range) ? IVSd (2D) ? 1.2 ?cm ? LVPWd (2D) ?1.2 ?cm ? IVS:LVPW ratio (2D) 1 ?ratio ? LVIDd (2D) ?5.1 ?cm ? LVIDs (2D) ?3.2 ?cm ? LVIDd (2D) index ?2 ?cm/m2 ? LVIDs (2D) index ?1.2 ?cm/m2 ? LV FS (2D) ?37 ? % ? EF Teichholz (2D) ?? 67 ? % ? Ao root diameter (2D3.1 ?cm (2.1 - 3.6) ? Ascending Ao ?3.5 ?cm (2 - 3.5) ? Volumes/Mass ?Value ?Units (Range) ? LA Area 4 CH ?34.5 ? cm2 (<21) ? LA ESV SP 4CH (MOD) 130 ?ml ? LA ESV SP 2CH (MOD) 108 ?ml ? LA ESV BP (MOD) ? 120 ?ml ? LA ESV BP (MOD) inde46 ? ml/m2 ? LV mass (2D) ?247 ?g ? LV mass (2D) index ??94.6 ? g/m2 ? Diastolic/Systolic Function ?Value ?Units (Range) ? MV E-wave Vmax ?1.1 ?m/sec ? MV deceleration [id number] ?msec ? MV A-wave Vmax ?1.3 ?m/sec ? MV E:A ratio ?0.8 ?ratio ? LV E:e' septal ratio8.8 ?ratio ? LV E:e' lateral rati8.5 ?ratio ? Tricuspid Valve ?Value ?Units (Range) ? TR Vmax ? 3.6 ?m/sec ? TR peak gradient ?53 ? mmHg ? RAP ? 3 ?mmHg ? RVSP ?56 ? mmHg ? Measurement Trending Name ? 01/17/2017 ? 11/08/2014 ? LVIDd (2D) ? 5. 12 LA ESV BP (MOD) ?120 LVIDs (2D) ? 3. 21 Wall Motion: Segment Name ?Rest ? Base-Anteroseptal ?? Normal ? Base-Anterior ? Normal ? Base-Anterolateral ??Normal ? Base-Posterolateral Normal ? Base-Inferior ? Normal ? Base-Inferoseptal ?? Normal ? Mid-Anteroseptal ?Normal ? Mid-Anterior ?Normal ? Mid-Anterolateral ?? Normal ? Mid-Posterolateral ??Normal ? Mid-Inferior ?Normal ? Mid-Inferoseptal ?Normal ? [place]-Septal ? Normal ? [place]-Anterior ? Normal ? [place]-Lateral ?Normal ? [place]-Inferior ? Normal ? [place]-Tip ?Normal ? This report has been electronically sign ed by: _ Krunal Shaw M.D. ? 01/17/2017 12:40:54 Images reviewed and interpretation [facility] Cardiac Ultrasound Laboratory Procedure Note Krunal Shaw MD - 01/17/2017Format ting of this note might be different from the original. Procedure: Transthoracic Echocardiogram Patient: JOHAN Magana (Age): [birth year] [age]y) Med Rec#: [id number] Sex: F Site Loc: [facility] Ht / Wt: 160(cm)/184(kg) Pt. Loc: Adult Floor BSA: 2.61 Study Date: 01/17/2017 Pt. Type: Inpatie nt Tape: Referring: Jabari Connors Referring: MADAN TAYLOR J Reading: Krunal Shaw ([id number]) Java Flex Developer: Luigi Ramirez Diagnosis: *ICD-10-PCS Hypotension, unspecified (I 95.9) BP: 100/60 SUMMARY: 1. Technically limited Optison contrast (one 3 ml vial) was used to enhance endocardial definition. 2. Mild concentric left ventricular hype rtrophy is observed. Global left ventricular systolic function appea rs hyperdynamic. Ejection fraction is estimated to be 75%. There a re no left ventricular segmental wall motion abnormalities. 3. The right ventricle is probably diane l in size. Right ventricular global systolic function is normal. 4. The left atrium is moderately dilated .46ml/m2 5. There is no hemodynamically significa nt valve disease. 6. See remainder of report for additiona l findings. Findings : Study Quality: Technically limited Left Ventricle: The left ventricular yohannes mber size is normal. Mild concentric left ventricular hypert rophy is observed. No ventricular septal defect is visuali zed. Global left ventricular systolic functi on appears hyperdynamic. Ejection fraction is estimated to be 75% . There are no left ventricular segmental wall motion abnormalities. Left Atrium: The left atrium is moderate ly dilated.46ml/m2 Right Ventricle: The right ventricle is probably normal in size. Right ventricular global systolic funct ion is normal. There is evidence of moderate pulmonary hypertension. The estimated pulmonary artery systolic pressure is 56 mmHg. The estimated right atrial pressure is 3 mmHg. Right Atrium: The right atrium is not we ll visualized. Aortic Valve: The aortic valve is probab ly tricuspid. Systolic excursion of the aortic valve is normal. There is no evidence of aortic valve st enosis. There is no evidence of aortic regurgit ation. Mitral Valve: The mitral valve leaflets are mildly thickened. There is no evidence of mitral stenosis . There is no evidence of mitral regurgit ation. Tricuspid Valve: The tricuspid valve is probably normal. There is no tricuspid valve stenosis. There is trace tricuspid regurgitation present. Pulmonic Valve: The pulmonic valve is no t well visualized. Pericardium: The pericardium appears nor mal and there is no evidence of a pericardial effusion. Aorta: The aortic root is normal in size . The ascending aorta is normal in size. Pulmonary Artery: The main pulmonary art oscar is not well visualized. Venous: The inferior vena cava appears n ormal in size. There is a greater than 50% respiratory change in the inferior vena cava dimension. Misc: See remainder of report for additi onal findings. Two-dimensional echo, spectral Doppler and color Doppler performed. Optison contrast (one 3 ml vial) was us ed to enhance endocardial definition. Excess contrast was discarde d. Chambers 2D Value Units (Range) IVSd (2D) 1.2 cm LVPWd (2D) 1.2 cm IVS:LVPW ratio (2D) 1 ratio LVIDd (2D) 5.1 cm LVIDs (2D) 3.2 cm LVIDd (2D) index 2 cm/m2 LVIDs (2D) index 1.2 cm/m2 LV FS (2D) 37 % EF Teichholz (2D) 67 % Ao root diameter (2D3.1 cm (2.1 - 3.6) Ascending Ao 3.5 cm (2 - 3.5) Volumes/Mass Value Units (Range) LA Area 4 CH 34.5 cm2 (<21) LA ESV SP 4CH (MOD) 130 ml LA ESV SP 2CH (MOD) 108 ml LA ESV BP (MOD) 120 ml LA ESV BP (MOD) inde46 ml/m2 LV mass (2D) 247 g LV mass (2D) index 94.6 g/m2 Diastolic/Systolic Function Value Units (Range) MV E-wave Vmax 1.1 m/sec MV deceleration [id number] msec MV A-wave Vmax 1.3 m/sec MV E:A ratio 0.8 ratio LV E:e' septal ratio8.8 ratio LV E:e' lateral rati8.5 ratio Tricuspid Valve Value Units (Range) TR Vmax 3.6 m/sec TR peak gradient 53 mmHg RAP 3 mmHg RVSP 56 mmHg Measurement Trending Name 01/17/2017 11/08/2014 LVIDd (2D) 5.12 LA ESV BP (MOD) 120 LVIDs (2D) 3.21 Wall Motion: Segment Name Rest Base-Anteroseptal Normal Base-Anterior Normal Base-Anterolateral Normal Base-Posterolateral Normal Base-Inferior Normal Base-Inferoseptal Normal Mid-Anteroseptal Normal Mid-Anterior Normal Mid-Anterolateral Normal Mid-Posterolateral Normal Mid-Inferior Normal Mid-Inferoseptal Normal [place]-Septal Normal [place]-Anterior Normal [place]-Lateral Normal [place]-Inferior Normal [place]-Tip Normal This report has been electronically sign ed by: _ Krunal Shaw M.D. 01/17/2017 12:40: 54 Images reviewed and interpretation vercaryl iejorge [facility] Jabarijackson Connors APRN ECHO ORDERABLES Performing Organization Address City/State/ZIP Code Phon e Number [facility] Cortisol (01/17/2017 7:35 AM EDT) P athologist Signature Cortisol 12.8 mcg/dL [facility] Comment: An updated cortisol assay reagent was im plemented 09/01/16. Please note the modified reference intervals. Reference ranges: ??AM (6-10am): ??4.8-19.5 mcg/dL ??PM (4-8pm) : ??2.5-11.9 mcg/dL Specimen Anatomical Collection Method Collection Time Receive d Time (Source) Location / / Volume Laterality Blood specimen Venous Draw / 01/17/2017 7:35 AM 2016 7:41 (specimen) Unknown EDT AM EDT Resulting Agency Comment Spec In Lab Nakul Garland MD CHEMISTRY ORDERABLES Performing Organization Address City/[facility]/[place] [address] POCT Glucose (01/17/2017 7:35 AM EDT) P athologist Signature POC Glucose 166 65 - 199 [facility] mg/dL [facility] Comment: Supplemental ranges: <140 mg/dL before meals <180 mg/dL all other times of the day Specimen Anatomical Collection Method Collection Time Receive d Time (Source) Location / / Volume Laterality Blood specimen 01/17/2017 7:35 AM 017 7:35 (specimen) EDT AM EDT Luther Handy MD POINT OF CARE TEST ORDERABLE S Performing Organization Address City/State/ZIP Code Phon e Number [facility] [place] [address] (ABNORMAL) Basic Metabolic Panel (non-fasting) (01/17/2017 7:35 AM EDT) athologist Signature Glucose Lvl 154 65 - 199 [facility] mg/dL [facility] Comment: Diabetes: >=200 mg/dL plus symp toms BUN 97 (H) 8 - 18 mg/dL [facility] Creatinine 3.97 (H) 0.70 - 1.20 mg/dL [facility] Comment: result rechecked-mk Please note that the pediatric reference intervals supplied above were not validated at [facility]. Results from pediatri c patients should be interpreted in conjunction to the patient's age, height and muscle mass. Sodium 128 (L) 135 - 145 mmol/L [facility] Potassium 5.1 (H) 3.5 - 5.0 mmol/L [facility] Comment: Please note: ??Patients with WBC >100,00 0 may have falsely elevated Potassium levels. ??For accurate Potassium quantif ication in these patients send serum separator tube (gold top) for subsequent determinations. ??Contact the Clinical Chemistry Laboratory if there are any qu estions. Chloride 91 (L) 98 - 107 mmol/L [facility] CO2 16 (L) 22 - 31 mmol/L [facility] Anion Gap 21 (H) 5 - 15 mmol/L [facility] Calcium 7.9 (L) 8.5 - 10.5 mg/dL [facility] Estimated GFR 12 (L) >=60 [facility] Comment: This estimated GFR (eGFR) value was calc ulated using the MDRD equation which has been validated on patients between t he ages of 18 and 70. The MDRD should not be used to assess kidney function in patients < 18 years of age or in patients with extremes of body mass, or in patients with acute kidney failure. This value should be multiplied by 1.2 f or patients. For further information please copy and past e the following links into your internet browser. [email or web address] Specimen Anatomical Collection Method Collection Time Receive d Time (Source) Location / / Volume Laterality Blood specimen 01/17/2017 7:35 AM 017 7:40 (specimen) EDT AM EDT Resulting Agency Comment Spec In Lab Ramos Montalvoault UNDERGROUND MINE MACHINERY MECHANIC CHEMISTRY ORDERABLES Performing Organization Address City/State/[place] [address] (ABNORMAL) BLOOD GAS 2 VENOUS (01/17/2017 3:14 AM EDT) athologist Signature pH Danie 7.37 7.32 - [facility] 7.42 [facility] pCO2 Danie 33 (L) 41 - 51 [facility] pO2 Danie 75 (H) 25 - 40 [facility] HCO3 Danie 18.6 mmol/L [facility] BE Danie -6.7 mmol/L [facility] Hgb Blood Gas 13.5 11.7 - [facility] 15.5 gm/dL [facility] O2HB Danie 93.6 % [facility] COHB Danie 0.4 % [facility] Comment: Nonsmokers: 0.5-1.5% COHB Smokers: Variable, but usually less than 10% Toxic: 20-30% COHB Lethal: Greater than 60% COHB METHB Danie 0.4 <=1.5 % [facility] Na Whole Blood 127 (L) 135 - 145 mmol/L [facility] K Whole Blood 5.1 (H) 3.5 - 5.0 mmol/L [facility] Comment: Please note: Patients with WBC >100,000 may have falsely elevated Potassium levels. Contact the Clinical Chemistry L aboratory if there are any questions. ICa Whole Blood 1.08 (L) 1.15 - 1.33 mmol/L [facility] Comment: Note: ??Total bilirubin higher than 20 m g/dL may lead to falsely low ionized calcium. CL Whole Blood 96 (L) 98 - 107 mmol/L [facility] Gluc Whole Bld 114 65 - 199 mg/dL [facility] Comment: Diabetes: >=200 mg/dL plus symp toms Lactate WB 1.6 0.5 - 2.2 mmol/L [facility] Flow Danie 5.0 LPM [facility] BGas Source Central Venous [facility] Specimen Anatomical Collection Method Collection Time Receive d Time (Source) Location / / Volume Laterality Blood specimen 01/17/2017 3:14 AM 017 3:14 (specimen) EDT AM EDT Alvaro Law MD CHEMISTRY ORDERABLES Performing Organization Address City/State/ZIP Code Phon e Number [place] [id number] (ABNORMAL) Differential, Automated (01/17/2017 2:15 AM EDT) [facility] Method Time Signature Neutrophils % 71.6 % [facility] Neutr Abs (ANC) 18.01 (H) 1.70 - [facility] 6.10 [facility] x10(3)[facility] LABORATORY Lymphocytes % 16.0 % [facility] Lymphocytes Abs 4.0 (H) 0.9 - 3.2 [facility] x10(3)[facility] LABORATORY Monocytes % 10.6 % [facility] Monocyte Abs 2.7 (H) 0.3 - 0.9 [facility] x10(3)[facility] LABORATORY Eosinophils % 0.5 % [facility] Eosinophils Abs 0.1 0.0 - 0.4 [facility] x10(3)[facility] LABORATORY Basophils % 0.1 % [facility] Basophils Abs 0.0 0.0 - 0.1 [facility] x10(3)[facility] LABORATORY Immature Gran % 1.20 % [facility] Comment: Immature granulocytes(IG's)percentage an d absolute count will include metamyelocytes, myelocytes, and promyelo cytes. Blood smears from CBCs yielding IG's will be scanned manually for concor dance. If this scan disagrees with the automated IG or if promyelocytes are not ed, a manual differential will be performed. Surekha Gran Abs 0.29 (H) 0.00 - 0.04 x10(3)/[facility] LABORATORY Specimen Anatomical Collection Method Collection Time Receive d Time (Source) Location / / Volume Laterality Blood specimen 01/17/2017 2:15 AM 017 2:20 (specimen) EDT AM EDT Resulting Agency Comment Spec In Lab Alvaro Law MD HEMATOLOGY ORDERABLES Performing Organization Address City/State/[place] [address] (ABNORMAL) Hemogram (01/17/2017 2:15 AM EDT) Analysis Performed At Patho logist Time Signature WBC 25.1 (H) 4.0 - 9.5 [facility] x10(3)/[facility] LABORATORY RBC 4.06 4.00 - [facility] JAY 5.21 [facility] x10(6)/[employer] LABORATORY Hemoglobin 12.0 11.7 - [facility] 15.[facility] gm/dL [facility] Hematocrit 34.4 (L) 35.7 - [facility] 45.8 % [facility] MCV 84.7 82.6 - [facility] 94.4 [facility] LABORATORY MCH 29.6 27.1 - [place] 32.0 pg [facility] MCHC 34.9 31.7 - [facility] 35.0 gm/dL [facility] Platelets 281 145 - 357 [facility] x10(3)/[facility] LABORATORY RDWSD 44.1 37.0 - [facility] JAY 46.0 [facility] LABORATORY RDWCV 14.3 (H) 11.5 - [facility] JAY 14.1 % [facility] MPV 12.1 7.6 - 12.9 [facility] LABORATORY nRBC % Auto 0.0 % [facility] nRBC Abs Auto 0.000 0.000 - [facility] 0.000 [facility] x10(3)/[employer] LABORATORY Specimen Anatomical Collection Method Collection Time Receive d Time (Source) Location / / Volume Laterality Blood specimen 01/17/2017 2:15 AM 017 2:20 (specimen) EDT AM EDT Resulting Agency Comment Spec In Lab Alvaro Law MD HEMATOLOGY ORDERABLES Performing Organization Address City/[facility]/ZIP Code Phon e Number [address] Phosphorus (01/17/2017 2:15 AM EDT) P athologist Signature Phosphorus 4.0 2.5 - 4.5 [facility] Specimen Anatomical Collection Method Collection Time Receive d Time (Source) Location / / Volume Laterality Blood specimen 01/17/2017 2:15 AM 017 2:20 (specimen) EDT AM EDT Resulting Agency Comment Spec In Lab Alvaro Law MD CHEMISTRY ORDERABLES Performing Organization Address City/[facility]/ZIP Code Phon e Number [address] Magnesium (01/17/2017 2:15 AM EDT) athologist Signature Magnesium 0.95 0.69 - 1.07 [facility] mmol/L [facility] Specimen Anatomical Collection Method Collection Time Receive d Time (Source) Location / / Volume Laterality Blood specimen 01/17/2017 2:15 AM 017 2:20 (specimen) EDT AM EDT Resulting Agency Comment Spec In Lab Alvaro Law MD CHEMISTRY ORDERABLES Performing Organization Address City/[facility]/[place] [address] (ABNORMAL) Basic Metabolic Panel (non-fasting) (01/17/2017 2:15 AM EDT) P athologist Signature Glucose Lvl 116 65 - 199 [facility] mg/dL [facility] Comment: Diabetes: >=200 mg/dL plus symp toms BUN 109 (H) 8 - 18 mg/dL [facility] Creatinine 4.96 (H) 0.70 - 1.20 mg/dL [facility] Comment: result rechecked-rr Please note that the pediatric reference intervals supplied above were not validated at [facility]. Results from pediatri c patients should be interpreted in conjunction to the patient's age, height and muscle mass. Sodium 128 (L) 135 - 145 mmol/L [facility] Potassium 5.4 (H) 3.5 - 5.0 mmol/L [facility] Comment: Please note: ??Patients with WBC >100,00 0 may have falsely elevated Potassium levels. ??For accurate Potassium quantif ication in these patients send serum separator tube (gold top) for subsequent determinations. ??Contact the Clinical Chemistry Laboratory if there are any qu estions. Chloride 89 (L) 98 - 107 mmol/L [facility] CO2 17 (L) 22 - 31 mmol/L [facility] Anion Gap 22 (H) 5 - 15 mmol/L [facility] Calcium 7.8 (L) 8.5 - 10.5 mg/dL [facility] Estimated GFR 9 (L) >=60 [facility] Comment: This estimated GFR (eGFR) value was calc ulated using the MDRD equation which has been validated on patients between t he ages of 18 and 70. The MDRD should not be used to assess kidney function in patients < 18 years of age or in patients with extremes of body mass, or in patients with acute kidney failure. This value should be multiplied by 1.2 f or patients. For further information please copy and past e the following links into your internet browser. [email or web address] Specimen Anatomical Collection Method Collection Time Receive d Time (Source) Location / / Volume Laterality Blood specimen 01/17/2017 2:15 AM 017 2:19 (specimen) EDT AM EDT Resulting Agency Comment Spec In Lab Ramos Kemp UNDERGROUND MINE MACHINERY MECHANIC CHEMISTRY ORDERABLES Performing Organization Address City/State/[place] [address] Insert Arterial Line (01/17/2017 1:16 AM EDT) Narrative Jabari Connors APRN - 01/17/2017 1:16 AM EDT Jabari Connors APRN ? 01/17/2017 ??1:16 AM (No note.)Arterial Line Placement Proced ure Note Indication for Procedure: Arterial line was placed for invasive blood pressure monitoring, arterial bloo d gases, access and blood sampling for laboratory test. Procedure Diagnosis: Hypotension Location of Procedure: Critical Care. Risks and Benefits: The risks and benefi ts of this procedure were reviewed and informed consent was obtain ed. ?? Time Out: Prior to the start of the proc edure, the patient's identity, intended procedure, site/side, correct patient positioning and presence of the site mar k was confirmed as applicable. The medical history and chau t were reviewed to rule out potential contraindications to the p lanned procedure. ?? Hand Hygiene: The battery vent plug inserter did perform h and hygiene prior to arterial line insertion. Procedure Prep: Sterile draping was appl ied. Skin was prepped with chlorhexidine. 3 ml of 1% Lidocaine was used for local anesthesia. Procedure Details: A 20 gauge, 2 inch ca theter was placed in the right radial artery and secured with yang ri-strips. Tegaderm was applied. Ultrasound was used for guidanc e. Guide wire was used in this procedure. The guide wire had a dougie meter of .018 inches. There were 2 attempts. ?? Findings: There were no procedure compli cations. Blood was drawn with ease. Good wave form. Procedure Comments: No significant event s during the procedure. Jabari Connors APRN PROCEDURE/MINOR SURGICAL ORD ERABLES Heparin, low molecular weight assay (01/17/2017 12:20 AM EDT) athologist Signature Heparin 1.40 IU/mL [facility] [id number] [facility] Comment: Guidelines for therapeutic unfractionate d and low molecular weight heparin levels for the various formulations avai lable in the [place] are summarized below. Anti-Xa levels should be determined in a plasma sample that has been drawn approximately 3-5 hours after a dose of LMWH and after steady-state has been reached. DRUG ?Dos ing Schedule ?Target Peak Steady-State ? Anti-Xa Levels (Units/mL) Unfractionated ?Continuo us infusion ?0.3-0.7 heparin Enoxaparin ?Twice daily ?0.6-1.0 Enoxararin ?Once d aily ? Unknown,likely 1.0-1.5 Dalteparin ?Once d aily ? 1.05 Tinzaparin ?Once d aily ? 0.85 Monitoring prophylactic dose LMWH is not routinely performed, thus guidelines for target peak anti-Xa levels are not a vailable. Levels between 0.2 and 0.5 u/ml may be appropriate. Note: Most clinical trials in which low molecular weight heparins were used to treat acute venous thrombolism did not u se target anti-Xa levels to guide dosing, hence therapeutic levels have be en determined retrospectively and have not been shown to correlate with drug ef ficacy. Specimen Anatomical Collection Method Collection Time Receive d Time (Source) Location / / Volume Laterality Blood specimen 01/17/2017 12:20 7 (specimen) AM EDT 12:24 AM EDT Resulting Agency Comment Spec In Lab Jabari Connors APRN HEMATOLOGY ORDERABLES Performing Organization Address City/State/ZIP [place] [address] EKG 12 Lead (01/16/2017 11:16 PM EDT) Component Value Ref Range Test Analysis Performed Pathologis t Method Time At Signature Ventricular rate 82 BPM MUSE SYSTEM Atrial Rate 82 BPM MUSE SYSTEM P-R Interval 192 ms MUSE SYSTEM QRS Duration 114 ms MUSE SYSTEM Q-T Interval 412 ms MUSE SYSTEM QTC Calculated 481 ms MUSE SYSTEM (Bezet) Calculated P [place] 70 degrees MUSE SYSTEM Calculated R [place] 53 degrees MUSE SYSTEM Calculated T [place] 26 degrees MUSE SYSTEM INTERPRETATION Normal sinus rhythm with sinus arrhythmia MUSE SYSTEM Prolonged QT Abnormal ECG When compared with ECG of 16-JAN-2017 17:19, No significant change was found I personally reviewed the tracing and edited the fellows int erpretation Confirmed by fellow MD Geovanni, Venkatesh ([id number]) on 01/17/2017 1 1:15:43 AM Confirmed by MD Levy, Madan ([id number]) on 01/17/2017 5:42 :15 PM Specimen Anatomical Collection Method Collection Time Receive d Time (Source) Location / / Volume Laterality 01/16/2017 11:16 01/17/2017 5:42 PM EDT PM EDT Jabari Connors APRN ECG ORDERABLES Performing Organization Address City/State/ZIP Code Phon e Number MUSE SYSTEM XR Chest PA or AP 1 view (01/16/2017 11:06 PM EDT) Anatomical Region Laterality Modality Chest N/A Digital Radiography Specimen (Source) Anatomical Location Collection Method / Collectio n Time Received Time / Laterality Volume Impressions 01/17/2017 1:21 AM EDT 1. ??Left-sided IJ catheter terminating at the cavoatrial junction. No pneumothorax seen. 2. ??Bilateral, right greater than left, patchy opacities are nonspecific and could represent edema and atelectasis. H owever, an underlying infectious/inflammatory process cannot b e excluded. 3. ??Trace effusion within the right min or fissure. I have personally reviewed the image(s) and the residents interpretation and agree with the findings, Agus Delgadillo at 01/17/2017 1:21 AM Narrative 01/17/2017 1:21 AM EDT EXAMINATION: XR CHEST PA OR AP 1 VIEW CLINICAL HISTORY: s/p CVC placement TECHNIQUE: Portable AP chest radiograph 01/16/2017 at 2255 hours. COMPARISON: Chest radiograph 01/15/2017; C T chest 01/10/2017. FINDINGS: Interval placement of a left-sided IJ ca theter with the distal tip terminating at the cavoatrial junction. The patient is rotated. Patchy bilateral, right greater than lef t, opacities are nonspecific and could represent a combination of edema and ate lectasis. Trace fluid within the right minor fissure. The costophrenic angles a re not included in the image which limits the evaluation for effusion. No p neumothorax seen on this semierect image. The cardiomediastinal silhouette and hil a are grossly unchanged. Procedure Note Agus Delgadillo MD - 01/17/2017 EXAMINATION: XR CHEST PA OR AP 1 VIEW CLINICAL HISTORY: s/p CVC placement TECHNIQUE: Portable AP chest radiograph 01/16/2017 at 2255 hours. COMPARISON: Chest radiograph 01/15/2017; C T chest 01/10/2017. FINDINGS: Interval placement of a left-sided IJ ca theter with the distal tip terminating at the cavoatrial junction. The patient is rotated. Patchy bilateral, right greater than lef t, opacities are nonspecific and could represent a combination of edema and ate lectasis. Trace fluid within the right minor fissure. The costophrenic angles a re not included in the image which limits the evaluation for effusion. No p neumothorax seen on this semierect image. The cardiomediastinal silhouette and hil a are grossly unchanged. IMPRESSION 1. Left-sided IJ catheter terminating at the cavoatrial junction. No pneumothorax seen. 2. Bilateral, right greater than left, p atchy opacities are nonspecific and could represent edema and atelectasis. H owever, an underlying infectious/inflammatory process cannot b e excluded. 3. Trace effusion within the right minor fissure. I have personally reviewed the image(s) and the residents interpretation and agree with the findings, Agus Delgadillo at 01/17/2017 1:21 AM Jabari Connors DEISY IMG DX ORDERABLES (ABNORMAL) Differential, Automated (01/16/2017 9:45 PM EDT) [facility] Method Time Signature Neutrophils % 69.8 % [facility] Neutr Abs (ANC) 9.91 (H) 1.70 - [facility] 6.10 [facility] x10(3)/[facility] LABORATORY Lymphocytes % 18.8 % [facility] Lymphocytes Abs 2.7 0.9 - 3.2 [facility] x10(3)/[facility] LABORATORY Monocytes % 9.3 % [facility] Monocyte Abs 1.3 (H) 0.3 - 0.9 [facility] x10(3)/[facility] LABORATORY Eosinophils % 0.8 % [facility] Eosinophils Abs 0.1 0.0 - 0.4 [facility] x10(3)/[facility] LABORATORY Basophils % 0.1 % [facility] Basophils Abs 0.0 0.0 - 0.1 [facility] x10(3)/[facility] LABORATORY Immature Gran % 1.20 % [facility] Comment: Immature granulocytes(IG's)percentage an d absolute count will include metamyelocytes, myelocytes, and promyelo cytes. Blood smears from CBCs yielding IG's will be scanned manually for concor dance. If this scan disagrees with the automated IG or if promyelocytes are not ed, a manual differential will be performed. [place] Gran Abs 0.17 (H) 0.00 - 0.04 x10(3)/[facility] LABORATORY Specimen Anatomical Collection Method Collection Time Receive d Time (Source) Location / / Volume Laterality Blood specimen 01/16/2017 9:45 PM 017 9:58 (specimen) EDT PM EDT Resulting Agency Comment Spec In Lab Jabari Milagro OLIVAS HEMATOLOGY ORDERABLES Performing Organization Address City/State/[place] [address] (ABNORMAL) Hemogram (01/16/2017 9:45 PM EDT) Analysis Performed At Patho logist Time Signature WBC 14.2 (H) 4.0 - 9.5 [facility] x10(3)/[facility] LABORATORY RBC 3.41 (L) 4.00 - [facility] 5.21 [facility] x10(6)/[employer] LABORATORY Hemoglobin 10.0 (L) 11.7 - [facility] 15.5 gm/dL [facility] Hematocrit 28.9 (L) 35.7 - [facility] 45.8 % [facility] MCV 84.8 82.6 - [place] 94.4 [facility] LABORATORY MCH 29.3 27.1 - [place] 32.0 pg [facility] MCHC 34.6 31.7 - [place] 35.0 gm/dL [facility] Platelets 205 145 - 357 [facility] x[facility](3[facility] LABORATORY RDWSD 44.6 37.0 - [place] 46.0 [facility] LABORATORY RDWCV 14.5 (H) 11.5 - [place] 14.1 % [facility] MPV 12.1 7.6 - 12.9 [place] [facility] LABORATORY nRBC % Auto 0.0 % [facility] nRBC Abs Auto 0.000 0.000 - [place] 0.000 [facility] x10(3)/[employer] LABORATORY Specimen Anatomical Collection Method Collection Time Receive d Time (Source) Location / / Volume Laterality Blood specimen 01/16/2017 9:45 PM 017 9:58 (specimen) EDT PM EDT Resulting Agency Comment Spec In Lab Jabari Sanchezconnie OLIVAS HEMATOLOGY ORDERABLES Performing Organization Address City/State/[place] [address] (ABNORMAL) Hepatic Function Panel (01/16/2017 9:45 PM EDT) P athologist Signature Total Protein 5.1 (L) 6.1 - 8.0 [place] gm/dL [facility] Albumin 2.6 (L) 3.2 - 5.2 [place] gm/dL [facility] AST 13 0 - 30 [place] unit/L [facility] ALT 25 0 - 30 [place] unit/L [facility] Alk Phos 48 40 - 104 [place] unit/L [facility] Total 0.5 0.2 - 1.3 [place] Bilirubin mg/dL [facility] Bili, Direct 0.2 0.0 - 0.3 [place] mg/dL [facility] Specimen Anatomical Collection Method Collection Time Receive d Time (Source) Location / / Volume Laterality Blood specimen 01/16/2017 9:45 PM 017 9:54 (specimen) EDT PM EDT Resulting Agency Comment Spec In Lab Jabari Connors APRN CHEMISTRY ORDERABLES Performing Organization Address City/[facility]/ZIP [facility] [place] [address] (ABNORMAL) Phosphorus (01/16/2017 9:45 PM EDT) athologist Signature Phosphorus 5.1 (H) 2.5 - 4.5 [place] mg/dL [facility] Specimen Anatomical Collection Method Collection Time Receive d Time (Source) Location / / Volume Laterality Blood specimen 01/16/2017 9:45 PM 017 9:54 (specimen) EDT PM EDT Resulting Agency Comment Spec In Lab Jabari Connors APRN CHEMISTRY ORDERABLES Performing Organization Address [facility]/ZIP [facility] [place] [address] Magnesium (01/16/2017 9:45 PM EDT) athologist Signature Magnesium 0.97 0.69 - 1.07 [facility] mmol/L [facility] Specimen Anatomical Collection Method Collection Time Receive d Time (Source) Location / / Volume Laterality Blood specimen 01/16/2017 9:45 PM 017 9:54 (specimen) EDT PM EDT Resulting Agency Comment Spec In Lab Jabari Connors APRN CHEMISTRY ORDERABLES Performing Organization Address City/[facility] [place] [address] Cardiac Enzymes (01/16/2017 9:45 PM EDT) athologist Signature Troponin-T <0.03 <=0.03 [place] ng/mL [facility] Comment: 0.03 ng/mL: Represents the 99th percenti le upper reference limit for normals. >0.03 ng/mL: Elevated cardiac troponin T level indicative of myocardial damage. Diagnosis of acute, evolving or recent M I requires a typical rise and gradual fall of cTnT with at least ONE of the fo llowing: a) Ischemic symptoms b) Development of pathologic Q waves on the ECG c) ECG changes indicative of eschemia (S -T segment elevation/depression) d) Coronary artery intervention Serial bloods should be obtained for kyler ting on admission, at 6 to 9 hrs and again at 12 to 24 hrs if earlier samples are negative and the clinical index of suspicion is high. Reference: [Myocardial infarction redefined? a consensus document of the Joint Society of Cardiology/[place] [employer] Committee for the redefinition of myocardial infarction. ? ?Journal of the [place] [employer] 2000; 36: 959-969] CK, Total 64 0 - 160 unit/L [facility] Specimen Anatomical Collection Method Collection Time Receive d Time (Source) Location / / Volume Laterality Blood specimen 01/16/2017 9:45 PM 017 9:54 (specimen) EDT PM EDT Resulting Agency Comment Spec In Lab Jabari Milagro OLIVAS CHEMISTRY ORDERABLES Performing Organization Address City/State/[place] [address] (ABNORMAL) Basic Metabolic Panel (non-fasting) (01/16/2017 9:45 PM EDT) athologist Signature Glucose Lvl 87 65 - 199 [facility] mg/dL [facility] Comment: Diabetes: >=200 mg/dL plus symp toms BUN 124 (H) 8 - 18 mg/dL [facility] Creatinine 6.30 (H) 0.70 - 1.20 mg/dL [facility] Comment: Please note that the pediatric reference intervals supplied above were not validated at [facility]. Results from pediatri c patients should be interpreted in conjunction to the patient's age, height and muscle mass. Sodium 127 (L) 135 - 145 mmol/L [facility] Comment: Result rechecked. Potassium 5.4 (H) 3.5 - 5.0 mmol/L [facility] Comment: Please note: ??Patients with WBC >100,00 0 may have falsely elevated Potassium levels. ??For accurate Potassium quantif ication in these patients send serum separator tube (gold top) for subsequent determinations. ??Contact the Clinical Chemistry Laboratory if there are any qu estions. Chloride 88 (L) 98 - 107 mmol/L [facility] CO2 20 (L) 22 - 31 mmol/L [facility] Anion Gap 19 (H) 5 - 15 mmol/L [facility] Calcium 7.2 (L) 8.5 - 10.5 mg/dL [facility] Estimated GFR 7 (L) >=60 [facility] Comment: This estimated GFR (eGFR) value was calc ulated using the MDRD equation which has been validated on patients between t he ages of 18 and 70. The MDRD should not be used to assess kidney function in patients < 18 years of age or in patients with extremes of body mass, or in patients with acute kidney failure. This value should be multiplied by 1.2 f or patients. For further information please copy and past e the following links into your internet browser. [email or web address] Specimen Anatomical Collection Method Collection Time Receive d Time (Source) Location / / Volume Laterality Blood specimen 01/16/2017 9:45 PM 017 9:54 (specimen) EDT PM EDT Resulting Agency Comment Spec In Lab Jabari Connors DEISY CHEMISTRY ORDERABLES Performing Organization Address City/State/[place] [address] (ABNORMAL) APTT (01/16/2017 9:45 PM EDT) P athologist Signature PTT 38 (H) 25 - 35 sec [facility] Comment: The recommended therapeutic range for fu ll dose, unfractionated heparin at [facility] is 80 ? 114 seconds. The use of the anti-Xa (heparin) level rather than the PTT is recommended for monitoring anticoagul ation intensity in critically ill patients receiving unfractionated hepari n by continuous IV infusion. Specimen Anatomical Collection Method Collection Time Receive d Time (Source) Location / / Volume Laterality Blood specimen 01/16/2017 9:45 PM 017 9:58 (specimen) EDT PM EDT Resulting Agency Comment Spec In Lab Jabari Connors APRN HEMATOLOGY ORDERABLES Performing Organization Address City/[facility]/[place] [address] (ABNORMAL) Prothrombin Time (01/16/2017 9:45 PM EDT) P athologist Signature PT 15.4 (H) 12.0 - 15.0 [facility] LABORATORY Comment: An INR <2.0 indicates adequate procoagul ant activity for hemostasis in most patients without underlying bleeding dis orders, though the INR may not adequately reflect hemostatic capacity i n patients with liver disease and synthetic impairment. The recommended ta rget INR range for therapeutic anticoagulation is 2.0 ? 3.0 for most applications, though lower and higher ranges may be appropriate depending on c linical circumstances. INR 1.2 (H) 0.9 - 1.1 [facility] Specimen Anatomical Collection Method Collection Time Receive d Time (Source) Location / / Volume Laterality Blood specimen 01/16/2017 9:45 PM 017 9:58 (specimen) EDT PM EDT Resulting Agency Comment Spec In Lab Jabari Connors APRN HEMATOLOGY ORDERABLES Performing Organization Address City/[facility]/[place] [address] POCT Glucose (01/16/2017 9:20 PM EDT) P athologist Signature POC Glucose 96 65 - 199 [facility] mg/dL [facility] Comment: Supplemental ranges: <140 mg/dL before meals <180 mg/dL all other times of the day Specimen Anatomical Collection Method Collection Time Receive d Time (Source) Location / / Volume Laterality Blood specimen 01/16/2017 9:20 PM 017 9:20 (specimen) EDT PM EDT Alvaro Law MD POINT OF CARE TEST ORDERABLE S Performing Organization Address City/State/[place] [address] Blood culture (01/16/2017 9:20 PM EDT) Patholo gist Method Time Signature Blood Culture No growth [facility] at 5 days. [facility] Specimen Anatomical Collection Method Collection Time Receive d Time (Source) Location / / Volume Laterality Blood specimen 01/16/2017 9:20 PM 017 (specimen) EDT 10:06 PM EDT Resulting Agency Comment Spec In Lab Alvaro Law MD MICROBIOLOGY - BLOOD ORDERAB LES Performing Organization Address City/State/[place] [address] (ABNORMAL) BLOOD GAS 2 ARTERIAL (01/16/2017 9:19 PM EDT) [facility] Signature pH Art 7.38 7.35 - [facility] 7.45 [facility] pCO2 Art 38 35 - 45 [facility] mmHg [facility] pO2 Art 78 (L) 85 - 104 [facility] LABORATORY HCO3 Art 22.1 20.0 - [facility] 26.0 [facility] mmol/[facility] LAB[facility] BE Art -3.0 -3.0 - 3.0 [facility] mmol/L [facility] Hgb Blood Gas 10.8 (L) 11.7 - [facility] 15.5 gm/dL [facility] O2HB Art 93.7 (L) 94.0 - [facility] 97.0 % [facility] COHB Art 0.3 % [facility] Comment: Nonsmokers: 0.5-1.5% COHB Smokers: Variable, but usually less than 10% Toxic: 20-30% COHB Lethal: Greater than 60% COHB METHB Art 0.5 <=1.5 % [facility] Na Whole Blood 123 (L) 135 - 145 mmol/L [facility] K Whole Blood 5.2 (H) 3.5 - 5.0 mmol/L [facility] Comment: Please note: Patients with WBC >100,000 may have falsely elevated Potassium levels. Contact the Clinical Chemistry L aboratory if there are any questions. ICa Whole Blood 1.04 (L) 1.15 - 1.33 mmol/L [facility] Comment: Note: ??Total bilirubin higher than 20 m g/dL may lead to falsely low ionized calcium. CL Whole Blood 93 (L) 98 - 107 mmol/L [facility] Gluc Whole Bld 80 65 - 199 mg/dL [facility] Comment: Diabetes: >=200 mg/dL plus symp toms. Lactate WB 1.2 0.5 - 2.2 mmol/L [facility] Flow Art 2.0 LPM [facility] Specimen Anatomical Collection Method Collection Time Receive d Time (Source) Location / / Volume Laterality Blood specimen 01/16/2017 9:19 PM 017 9:19 (specimen) EDT PM EDT Alvaro Law MD CHEMISTRY ORDERABLES Performing Organization Address [facility] [place] [place] [address] EKG 12 Lead (01/16/2017 5:19 PM EDT) Component Value Ref Range Test Analysis Performed Pathologis t Method Time At Signature Ventricular rate 67 BPM MUSE SYSTEM Atrial Rate 67 BPM MUSE SYSTEM P-R Interval 194 ms MUSE SYSTEM QRS Duration 100 ms MUSE SYSTEM Q-T Interval 430 ms MUSE SYSTEM QTC Calculated 454 ms MUSE SYSTEM (Bezet) Calculated P [place] 63 degrees MUSE SYSTEM Calculated R [place] 52 degrees MUSE SYSTEM Calculated T [place] [employer] 14 degrees MUSE SYSTEM INTERPRETATION Normal sinus rhythm MUSE SYSTEM Normal ECG When compared with ECG of 16-JAN-2017 04:37, No significant change was found Confirmed by MD Shahid, Raúl Lugo ([id number]) on 01/17/2017 6: 47:41 PM Specimen Anatomical Collection Method Collection Time Receive d Time (Source) Location / / Volume Laterality 01/16/2017 5:19 PM 7 6:47 EDT PM EDT Kyler Deluna MD ECG ORDERABLES Performing Organization Address City/[facility]/ZIP [facility] Phon e Number MUSE SYSTEM POCT Glucose (01/16/2017 5:15 PM EDT) P athologist Signature POC Glucose 100 65 - 199 [facility] mg/dL [facility] Comment: Supplemental ranges: <140 mg/dL before meals <180 mg/dL all other times of the day Specimen Anatomical Collection Method Collection Time Receive d Time (Source) Location / / Volume Laterality Blood specimen 01/16/2017 5:15 PM 017 5:15 (specimen) EDT PM EDT Alvaro Law MD POINT OF CARE TEST ORDERABLE S Performing Organization Address City/State/[place] [address] (ABNORMAL) Hemogram (01/16/2017 2:55 PM EDT) Analysis Performed At Patho logist Time Signature WBC 13.2 (H) 4.0 - 9.5 [facility] x10(3)/[facility] LABORATORY RBC 3.52 (L) 4.00 - [place] 5.21 [facility] x10(6)/[employer] LABORATORY Hemoglobin 10.1 (L) 11.7 - [facility] 15.5 gm/dL [facility] Hematocrit 29.3 (L) 35.7 - [facility] 45.8 % [facility] MCV 83.2 82.6 - [facility] 94.4 [facility] LABORATORY MCH 28.7 27.1 - [place] 32.0 pg [facility] MCHC 34.5 31.7 - [facility] 35.0 gm/dL [facility] Platelets 223 145 - 357 [facility] x10(3)/[facility] LABORATORY RDWSD 43.3 37.0 - [facility] 46.0 [facility] LABORATORY RDWCV 14.2 (H) 11.5 - [place] 14.1 % [facility] MPV 11.9 7.6 - 12.9 [facility] LABORATORY nRBC % Auto 0.0 % [facility] nRBC Abs Auto 0.000 0.000 - [facility] 0.000 [facility] x10(3)/[employer] LABORATORY Specimen Anatomical Collection Method Collection Time Receive d Time (Source) Location / / Volume Laterality Blood specimen 01/16/2017 2:55 PM 017 3:10 (specimen) EDT PM EDT Resulting Agency Comment Spec In Lab Alvaro Law MD HEMATOLOGY ORDERABLES Performing Organization Address City/State/[place] [address] (ABNORMAL) Basic Metabolic Panel (non-fasting) (01/16/2017 2:55 PM EDT) athologist Signature Glucose Lvl 98 65 - 199 [facility] mg/dL [facility] Comment: Diabetes: >=200 mg/dL plus symp toms BUN 132 (H) 8 - 18 mg/dL [facility] Creatinine 6.67 (H) 0.70 - 1.20 mg/dL [facility] Comment: Please note that the pediatric reference intervals supplied above were not validated at [facility]. Results from pediatri c patients should be interpreted in conjunction to the patient's age, height and muscle mass. Sodium 122 (L) 135 - 145 mmol/L [facility] Potassium 5.9 (H) 3.5 - 5.0 mmol/L [facility] Comment: Please note: ??Patients with WBC >100,00 0 may have falsely elevated Potassium levels. ??For accurate Potassium quantif ication in these patients send serum separator tube (gold top) for subsequent determinations. ??Contact the Clinical Chemistry Laboratory if there are any qu estions. Chloride 83 (L) 98 - 107 mmol/L [facility] CO2 21 (L) 22 - 31 mmol/L [facility] Anion Gap 18 (H) 5 - 15 mmol/L [facility] Calcium 8.0 (L) 8.5 - 10.5 mg/dL [facility] Estimated GFR 6 (L) >=60 [facility] Comment: This estimated GFR (eGFR) value was calc ulated using the MDRD equation which has been validated on patients between t he ages of 18 and 70. The MDRD should not be used to assess kidney function in patients < 18 years of age or in patients with extremes of body mass, or in patients with acute kidney failure. This value should be multiplied by 1.2 f or patients. For further information please copy and past e the following links into your internet browser. [email or web address] Specimen Anatomical Collection Method Collection Time Receive d Time (Source) Location / / Volume Laterality Blood specimen 01/16/2017 2:55 PM 017 3:10 (specimen) EDT PM EDT Resulting Agency Comment Spec In Lab Ramos Kemp APRN CHEMISTRY ORDERABLES Performing Organization Address City/[facility]/ZIP Code Phon [place] [id number] Ab Comment (01/16/2017 1:50 PM EDT) Component Value Ref Test Analysis Performed At [facility] gist Range Method Time Signature Ab Information INTERPRETATION: A red cell a lloantibody, anti-K, was identified in the patient BING specimen. ??This antibody can cause red cell hemolysis. Fu ture units for JAY transfusion will be negative for the K antigen and adult crossing guard ss-match compatible at [facility] the antiglobulin phase. ?? sobeida additional steps will add about an hour to unit HOSPITAL preparation time, but compatible units should be avail able in our inventory. LABORATORY In addition, a non clinically significant antibody, anti-Bga has been also identified Alan Wells MD, PhD Transfusion Medicine Service 02/08/17 17:40 Comment: ALAN WELLS, Pathologist Verified:02/08/17 Specimen Anatomical Collection Method Collection Time Receive d Time (Source) Location / / Volume Laterality Blood specimen Other / Unknown 01/16/2017 1:50 PM 06/0 11/2016 1:50 (specimen) EDT PM EDT Resulting Agency Comment Spec In Lab Nakul Garland MD BLOOD BANK ORDERABLES Performing Organization Address City/[facility]/ZIP Code Phon e Number [address] Antibody identification (01/16/2017 1:50 PM EDT) Analysis Performed At Path logist Time Signature Ab Identified Anti-Bga [facility] LABORATORY Specimen Anatomical Collection Method Collection Time Receive d Time (Source) Location / / Volume Laterality Blood specimen Other / Unknown 01/16/2017 1:50 PM 06/0 11/2016 1:50 (specimen) EDT PM EDT Resulting Agency Comment Spec In Lab Nakul Garland MD BLOOD BANK ORDERABLES Performing Organization Address City/[facility]/ZIP Code Phon e Number [address] (ABNORMAL) Urine culture (01/16/2017 12:00 PM EDT) [facility] gist Method Time Signature Urine Culture Greater than [facility] K 100,000 [facility] cfu/ml [facility] Missy LABORATORY albicans (A) Organism Missy [facility] albicans (A) [facility] LABORATORY Specimen (Source) Anatomical Collection Method Collection Time Re ceived Time Location / / Volume Laterality Urine specimen 01/16/2017 12:00 7 obtained by clean PM EDT 12:36 PM E DT catch procedure (specimen) Resulting Agency Comment Spec In Lab Nakul Garland MD MICROBIOLOGY - GENERAL ORDER MARY Performing Organization Address City/[facility]/[place] [address] Urine Hold (01/16/2017 12:00 PM EDT) P athologist Signature Urine Hold Sample in [facility]. [facility] LABORATORY Specimen Anatomical Collection Method Collection Time Receive d Time (Source) Location / / Volume Laterality Urine specimen Urine / Unknown 01/16/2017 12:00 2016 (specimen) PM EDT 12:01 PM EDT Nakul Garland MD URINE ORDERABLES Performing Organization Address City/[facility] [place] [address] (ABNORMAL) Urinalysis with reflex Culture (01/16/2017 12:00 PM EDT) [facility] Method Time Signature Glucose UA Negative Negative [facility] Protein UA 100 (A) Negative [facility] mg/dL [facility] Bilirubin UA Negative Negative [facility] mg/dL [facility] Comment: Clinical correlation required for positi ve Urine Bilirubin results as false positive may occur with some drugs and d rug related products. If a false positive is suspected a serum total bili armas should be considered if clinically indicated. Urobilinogen UA Normal Normal mg/dL [facility] pH UA 5.0 5.0 - 8.0 [facility] Blood UA Large (A) Negative mg/dL [facility] Ketones UA Negative Negative mg/dL [facility] Nitrite UA Negative Negative [facility] Leukocytes UA Moderate (A) Negative mcL [facility] LABORATORY Appearance UA Turbid (A) Clear [facility] Spec [place] UA 1.019 1.002 - 1.030 [facility] Color UA Red Yellow [facility] RBC UA >182 0 - 4 /HPF [facility] Comment: Corrected from Not Present /HPF [NA] on 01/16/17 12:24 by Ami David WBC UA >182 0 - 5 /HPF [facility] Comment: Corrected from Not Present /HPF [NA] on 01/16/17 12:24 by Ami David WBCs Clumping Occasional (A) None /HPF [facility] Bacteria UA Moderate (A) None /HPF [facility] Yeast Hyph UA Few (A) None /HPF [facility]OR[facility] Trans Epith UA 2 (H) <=1 /HPF [facility] Renal Epith UA 1 (H) <=0 /HPF [facility] Culture Reflexed Yes [facility]OR[facility] Specimen (Source) Anatomical Collection Method Collection Time Re ceived Time Location / / Volume Laterality Urine specimen 01/16/2017 12:00 7 obtained by clean PM EDT 12:01 PM E DT catch procedure (specimen) Resulting Agency Comment Spec In Lab Nakul Garland MD URINE ORDERABLES Performing Organization Address City/State/[place] [address] (ABNORMAL) Basic Metabolic Panel (non-fasting) (01/16/2017 10:06 AM EDT) athologist Signature Glucose Lvl 97 65 - 199 [facility] mg/dL [facility] Comment: Diabetes: >=200 mg/dL plus symp toms BUN 132 (H) 8 - 18 mg/dL [facility]OR[facility] Creatinine 6.51 (H) 0.70 - 1.20 mg/dL [facility] Comment: Please note that the pediatric reference intervals supplied above were not validated at [facility]. Results from pediatri c patients should be interpreted in conjunction to the patient's age, height and muscle mass. Sodium 123 (L) 135 - 145 mmol/L [facility] Potassium 6.3 (Critical) 3.5 - 5.0 mmol/L [facility] Comment: called by/read back by (full name)/date- time /Azucena Jennings: 01/16/17 1046 Please note: ??Patients with WBC >100,00 0 may have falsely elevated Potassium levels. ??For accurate Potassium quantif ication in these patients send serum separator tube (gold top) for subsequent determinations. ??Contact the Clinical Chemistry Laboratory if there are any qu estions. Chloride 83 (L) 98 - 107 mmol/L [facility] CO2 23 22 - 31 mmol/L [facility] Anion Gap 17 (H) 5 - 15 mmol/L [facility] Calcium 8.3 (L) 8.5 - 10.5 mg/dL [facility] Estimated GFR 7 (L) >=60 [facility] Comment: This estimated GFR (eGFR) value was calc ulated using the MDRD equation which has been validated on patients between t he ages of 18 and 70. The MDRD should not be used to assess kidney function in patients < 18 years of age or in patients with extremes of body mass, or in patients with acute kidney failure. This value should be multiplied by 1.2 f or patients. For further information please copy and past e the following links into your internet browser. [email or web address] Specimen Anatomical Collection Method Collection Time Receive d Time (Source) Location / / Volume Laterality Blood specimen 01/16/2017 10: 7 (specimen) AM EDT 10:13 AM EDT Resulting Agency Comment Spec In Lab Ramos Kemp APRN CHEMISTRY ORDERABLES Performing Organization Address City/State/ZIP Code Phon e Number [address] Ethanol Level (01/16/2017 10:06 AM EDT) P athologist Signature Ethanol Lvl <100 mg/L [facility] Comment: Greater than 800 mg/L (0.08%) should be considered intoxicated. 3400 to 4500 mg/L (0.34 - 0.45%) is cons idered severe intoxication. Greater than 5500 mg/L (0.55%) is usuall y fatal. Specimen Anatomical Collection Method Collection Time Receive d Time (Source) Location / / Volume Laterality Blood specimen 01/16/2017 10:06 7 (specimen) AM EDT 10:13 AM EDT Resulting Agency Comment Spec In Lab Nakul Garland MD CHEMISTRY ORDERABLES Performing Organization Address City/State/ZIP Code Phon e Number [address] Ethanol Level (01/16/2017 7:28 AM EDT) athologist Signature Ethanol Lvl <100 mg/L [facility] Comment: Greater than 800 mg/L (0.08%) should be considered intoxicated. 3400 to 4500 mg/L (0.34 - 0.45%) is cons idered severe intoxication. Greater than 5500 mg/L (0.55%) is usuall y fatal. Specimen Anatomical Collection Method Collection Time Receive d Time (Source) Location / / Volume Laterality Blood specimen 01/16/2017 7:28 AM 017 7:51 (specimen) EDT AM EDT Resulting Agency Comment Spec In Lab Nakul Garland MD CHEMISTRY ORDERABLES Performing Organization Address City/State/[place] [address] (ABNORMAL) Acetaminophen level (01/16/2017 7:28 AM EDT) athologist Signature Acetamin Lvl <5 (L) 10 - 30 [facility] mg/L [facility] Comment: Levels >150 mg/L at 4 hours post ingesti on or >75 mg/L at 8 hours post ingestion are often an indication for N- Acetylcysteine. Specimen Anatomical Collection Method Collection Time Receive d Time (Source) Location / / Volume Laterality Blood specimen 01/16/2017 7:28 AM 017 7:51 (specimen) EDT AM EDT Resulting Agency Comment Spec In Lab Nakul Garland MD CHEMISTRY ORDERABLES Performing Organization Address City/[facility]/ZIP Code Phon e Number [address] Salicylate (01/16/2017 7:28 AM EDT) athologist Signature Salicylate Lvl <20 mg/L [facility] Comment: Therapeutic Range: ??< 200 mg/L Arthritic Therapy: ??150-300 mg/L Toxic: ?> 350 mg/L ??Concentrations > 500 mg/L may be an i ndication for alkalinization of urine. Concentrations > 800 mg/L are often an i ndication for hemodialysis. Specimen Anatomical Collection Method Collection Time Receive d Time (Source) Location / / Volume Laterality Blood specimen 01/16/2017 7:28 AM 017 7:51 (specimen) EDT AM EDT Resulting Agency Comment Spec In Lab Nakul Garland MD CHEMISTRY ORDERABLES Performing Organization Address City/State/ZIP Code Phon e Number [address] Chloride, urine, random (01/16/2017 6:16 AM EDT) athologist Signature U Chloride <20 mmol/L [facility] Specimen Anatomical Collection Method Collection Time Receive d Time (Source) Location / / Volume Laterality Urine specimen Urine / Unknown 01/16/2017 6:16 AM 11/2016 6:25 (specimen) EDT AM EDT Resulting Agency Comment Spec In Lab Nakul Garland MD URINE ORDERABLES Performing Organization Address City/[facility]/ZIP Code Phon e Number [address] Potassium, urine, random (01/16/2017 6:16 AM EDT) P athologist Signature U Potassium 79 mmol/L [facility] Specimen Anatomical Collection Method Collection Time Receive d Time (Source) Location / / Volume Laterality Urine specimen Urine / Unknown 01/16/2017 6:16 AM 06/0 11/2016 6:25 (specimen) EDT AM EDT Resulting Agency Comment Spec In Lab Nakul Garland MD URINE ORDERABLES Performing Organization Address [facility] Code Phon e Number [address] Osmolality, urine, random (01/16/2017 6:16 AM EDT) P athologist Signature U Osmolality 319 50 - 1,200 [facility] mOsm/kg [facility]ORY Specimen Anatomical Collection Method Collection Time Receive d Time (Source) Location / / Volume Laterality Urine specimen 01/16/2017 6:16 AM 017 6:25 (specimen) EDT AM EDT Resulting Agency Comment Spec In Lab Nakul Garland MD URINE ORDERABLES Performing Organization Address City/[facility]/ZIP Code Phon e Number [address] Creatinine, urine, random (01/16/2017 6:16 AM EDT) P athologist Signature U Creatinine 140 mg/dL [facility] Specimen Anatomical Collection Method Collection Time Receive d Time (Source) Location / / Volume Laterality Urine specimen 01/16/2017 6:16 AM 017 6:25 (specimen) EDT AM EDT Resulting Agency Comment Spec In Lab Nakul Garland MD URINE ORDERABLES Performing Organization Address City/[facility]/ZIP Code Phon e Number [address] Urea nitrogen, urine, random (01/16/2017 6:16 AM EDT) P athologist Signature U Urea 258 mg/dL [facility] LABORATORY Specimen Anatomical Collection Method Collection Time Receive d Time (Source) Location / / Volume Laterality Urine specimen 01/16/2017 6:16 AM 017 6:25 (specimen) EDT AM EDT Resulting Agency Comment Spec In Lab Nakul Garland MD URINE ORDERABLES Performing Organization Address [facility] Phon e Number [address] Sodium, urine, random (01/16/2017 6:16 AM EDT) P athologist Signature U Sodium 25 mmol/L [facility] Specimen Anatomical Collection Method Collection Time Receive d Time (Source) Location / / Volume Laterality Urine specimen 01/16/2017 6:16 AM 017 6:25 (specimen) EDT AM EDT Resulting Agency Comment Spec In Lab Nakul Garland MD URINE ORDERABLES Performing Organization Address [facility] [place] [place] [address] EKG 12 Lead (01/16/2017 4:37 AM EDT) [facility] gist Method Time Signature Ventricular rate 69 BPM MUSE SYSTEM Atrial Rate 69 BPM MUSE SYSTEM P-R Interval 168 ms MUSE SYSTEM QRS Duration 100 ms MUSE SYSTEM Q-T Interval 400 ms MUSE SYSTEM QTC Calculated 428 ms MUSE SYSTEM (Bezet) Calculated P [employer] 71 degrees MUSE SYSTEM Calculated R [place] 66 degrees MUSE SYSTEM Calculated T [employer] 15 degrees MUSE SYSTEM INTERPRETATION Normal sinus rhythm MUSE SYSTEM Normal ECG When compared with ECG of 18-DEC-2013 13:13, QT has shortened Confirmed by MD Jenise, Diego Mai ([id number]) on 01/16/2017 11:16:30 AM Specimen Anatomical Collection Method Collection Time Receive d Time (Source) Location / / Volume Laterality 01/16/2017 4:37 AM 7 EDT 11:16 AM EDT Nakul Garland MD ECG ORDERABLES Performing Organization Address City/[facility]/ZIP Code Phon e Number MUSE SYSTEM pro-Brain Natriuretic Peptide (01/16/2017 3:32 AM EDT) P athologist Signature ProBNP 115 <=125 pg/mL [facility]OR[facility]ORY Specimen Anatomical Collection Method Collection Time Receive d Time (Source) Location / / Volume Laterality Blood specimen Venous Draw / 01/16/2017 3:32 AM 2016 8:03 (specimen) Unknown EDT AM EDT Resulting Agency Comment Spec In Lab Nakul Garland MD CHEMISTRY ORDERABLES Performing Organization Address City/[facility]/ZIP Code Phon e Number [address] Triglyceride (01/16/2017 3:32 AM EDT) athologist Signature Triglycerides 113 <=199 [facility] Specimen Anatomical Collection Method Collection Time Receive d Time (Source) Location / / Volume Laterality Blood specimen Venous Draw / 01/16/2017 3:32 AM 2016 3:39 (specimen) Unknown EDT AM EDT Resulting Agency Comment Spec In Lab Nakul Garland MD CHEMISTRY ORDERABLES Performing Organization Address City/[facility]/[place] [address] (ABNORMAL) Osmolality (01/16/2017 3:32 AM EDT) athologist Signature Osmolality 303 (H) 275 - 295 [facility] mOsm/kg [facility]OR[facility]ORY Specimen Anatomical Collection Method Collection Time Receive d Time (Source) Location / / Volume Laterality Blood specimen Venous Draw / 01/16/2017 3:32 AM 2016 3:39 (specimen) Unknown EDT AM EDT Resulting Agency Comment Spec In Lab Nakul Garland MD CHEMISTRY ORDERABLES Performing Organization Address City/[facility]/ZIP Code Phon e Number [address] ABORH Recheck Status (01/16/2017 3:32 AM EDT) Patholo gist Method Time Signature ABORH Type Completed [facility] LABORATORY Specimen Anatomical Collection Method Collection Time Receive d Time (Source) Location / / Volume Laterality Blood specimen Venous Draw / 01/16/2017 3:32 AM 2016 3:55 (specimen) Unknown EDT AM EDT Resulting Agency Comment Spec In Lab Nakul Garland MD BLOOD BANK ORDERABLES Performing Organization Address City/[facility]/ZIP Code Phon e Number [address] Scan, Peripheral Blood (01/16/2017 3:32 AM EDT) P athologist Signature Plat Estimate Normal [facility] RBC Morphology Normal [facility] Specimen Anatomical Collection Method Collection Time Receive d Time (Source) Location / / Volume Laterality Blood specimen 01/16/2017 3:32 AM 017 3:37 (specimen) EDT AM EDT Resulting Agency Comment Spec In Lab Nakul Garland MD HEMATOLOGY ORDERABLES Performing Organization Address City/[facility]/[place] [address] Selected Cell Screen (01/16/2017 3:32 AM EDT) Component Value Ref Test Analysis Performed At [facility] EVRYTHNG [place] Method Time Signature Ab Screen Previously identified Anti-K. No additio nal alloantibodies detected.* [place] *Due to the presence of alloantibody(ies) additional time is required for [facility] preparation of Red Cell Products. HOSPITAL LABORATORY See initial antibody identification report for additional in formation. Specimen Anatomical Collection Method Collection Time Receive d Time (Source) Location / / Volume Laterality Blood specimen Venous Draw / 01/16/2017 3:32 AM 2016 3:55 (specimen) Unknown EDT AM EDT Resulting Agency Comment Spec In Lab Nakul Garland MD BLOOD BANK ORDERABLES Performing Organization Address City/[facility]/ZIP Code Phon e Number [address] ABORh Type Manual (01/16/2017 3:32 AM EDT) [facility] EVRYTHNG Method Time Signature Expires at 01/19/2017 [place] 0519 on: [facility] ABORh Type O Pos [facility] Specimen Anatomical Collection Method Collection Time Receive d Time (Source) Location / / Volume Laterality Blood specimen Venous Draw / 01/16/2017 3:32 AM 2016 3:55 (specimen) Unknown EDT AM EDT Resulting Agency Comment Spec In Lab Nakul Garland MD BLOOD BANK ORDERABLES Performing Organization Address City/State/[place] [address] (ABNORMAL) Differential, Automated (01/16/2017 3:32 AM EDT) [facility] Method Time Signature Neutrophils % 70.1 % [facility] Neutr Abs (ANC) 10.29 (H) 1.70 - [facility] 6.10 [facility] x10(3)/[facility] LABORATORY Lymphocytes % 16.6 % [facility]OR[facility] Lymphocytes Abs 2.4 0.9 - 3.2 [facility] x10(3)/[facility] LABORATORY Monocytes % 11.5 % [facility]ORATORY Monocyte Abs 1.7 (H) 0.3 - 0.9 [facility] x10(3)/[facility] LABORATORY Eosinophils % 0.7 % [facility] Eosinophils Abs 0.1 0.0 - 0.4 [facility] x10(3)/[facility] LABORATORY Basophils % 0.1 % [facility] Basophils Abs 0.0 0.0 - 0.1 [facility] x10(3)/[facility] LABORATORY Immature Gran % 1.00 % [facility] Comment: Immature granulocytes(IG's)percentage an d absolute count will include metamyelocytes, myelocytes, and promyelo cytes. Blood smears from CBCs yielding IG's will be scanned manually for concor dance. If this scan disagrees with the automated IG or if promyelocytes are not ed, a manual differential will be performed. Surekha Gran Abs 0.14 (H) 0.00 - 0.04 x10(3)/[facility] LABORATORY Specimen Anatomical Collection Method Collection Time Receive d Time (Source) Location / / Volume Laterality Blood specimen 01/16/2017 3:32 AM 017 3:37 (specimen) EDT AM EDT Resulting Agency Comment Spec In Lab Nakul Garland MD HEMATOLOGY ORDERABLES Performing Organization Address City/State/[place] [address] (ABNORMAL) Hemogram (01/16/2017 3:32 AM EDT) Analysis Performed At Patho logist Time Signature WBC 14.7 (H) 4.0 - 9.5 [facility] x[facility](3[facility] LABORATORY RBC 3.86 (L) 4.00 - [facility] 5.21 [facility] x10(6)/[employer] LABORATORY Hemoglobin 11.1 (L) 11.7 - [facility] 15.5 gm/dL [facility]OR[facility]ORY Hematocrit 32.1 (L) 35.7 - [facility] 45.8 % [facility] MCV 83.2 82.6 - [facility] 94.4 [facility] LABORATORY MCH 28.8 27.1 - [facility] 32.0 pg [facility] LABORATORY MCHC 34.6 31.7 - [facility] 35.0 gm/dL [facility]ORATORY Platelets 227 145 - 357 [facility] x10(3)/[facility] LABORATORY RDWSD 43.0 37.0 - [facility] JAY 46.0 [facility] LABORATORY RDWCV 14.2 (H) 11.5 - [facility] JAY 14.1 % [facility] LABORATORY MPV 11.7 7.6 - 12.9 [facility] nRBC % Auto 0.0 % [facility]ORAT[facility] nRBC Abs Auto 0.000 0.000 - [facility] JAY 0.000 [facility] x10(3)/[employer] LABORATORY Specimen Anatomical Collection Method Collection Time Receive d Time (Source) Location / / Volume Laterality Blood specimen 01/16/2017 3:32 AM 017 3:37 (specimen) EDT AM EDT Resulting Agency Comment Spec In Lab Nakul Garland MD HEMATOLOGY ORDERABLES Performing Organization Address City/State/[place] [address] (ABNORMAL) APTT (01/16/2017 3:32 AM EDT) athologist Signature PTT 50 (H) 25 - 35 sec [facility] Comment: The recommended therapeutic range for fu ll dose, unfractionated heparin at [facility] is 80 ? 114 seconds. The use of the anti-Xa (heparin) level rather than the PTT is recommended for monitoring anticoagul ation intensity in critically ill patients receiving unfractionated hepari n by continuous IV infusion. Specimen Anatomical Collection Method Collection Time Receive d Time (Source) Location / / Volume Laterality Blood specimen 01/16/2017 3:32 AM 017 3:37 (specimen) EDT AM EDT Resulting Agency Comment Spec In Lab Nakul Garland MD HEMATOLOGY ORDERABLES Performing Organization Address City/[facility] [place] [place] [address] (ABNORMAL) Prothrombin Time (01/16/2017 3:32 AM EDT) athologist Signature PT 15.7 (H) 12.0 - 15.0 [facility] LABORATORY Comment: An INR <2.0 indicates adequate procoagul ant activity for hemostasis in most patients without underlying bleeding dis orders, though the INR may not adequately reflect hemostatic capacity i n patients with liver disease and synthetic impairment. The recommended ta rget INR range for therapeutic anticoagulation is 2.0 ? 3.0 for most applications, though lower and higher ranges may be appropriate depending on c linical circumstances. INR 1.2 (H) 0.9 - 1.1 [facility] Specimen Anatomical Collection Method Collection Time Receive d Time (Source) Location / / Volume Laterality Blood specimen 01/16/2017 3:32 AM 017 3:37 (specimen) EDT AM EDT Resulting Agency Comment Spec In Lab Nakul Garland MD HEMATOLOGY ORDERABLES Performing Organization Address City/[facility] [place] [address] (ABNORMAL) Hepatic Function Panel (01/16/2017 3:32 AM EDT) P athologist Signature Total Protein 5.9 (L) 6.1 - 8.0 [facility] gm/dL [facility] Albumin 2.9 (L) 3.2 - 5.2 [place] gm/dL [facility] AST 19 0 - 30 [place] unit/L [facility] ALT 30 0 - 30 [place] unit/L [facility] Alk Phos 56 40 - 104 [facility] unit/L [facility] Total 0.7 0.2 - 1.3 [place] Bilirubin mg/dL [facility] Bili, Direct 0.1 0.0 - 0.3 [place] mg/dL [facility] Specimen Anatomical Collection Method Collection Time Receive d Time (Source) Location / / Volume Laterality Blood specimen 01/16/2017 3:32 AM 017 3:37 (specimen) EDT AM EDT Resulting Agency Comment Spec In Lab Nakul Garland MD CHEMISTRY ORDERABLES Performing Organization Address City/[facility]/ZIP Code Phon e Number [address] (ABNORMAL) Phosphorus (01/16/2017 3:32 AM EDT) P athologist Signature Phosphorus 5.1 (H) 2.5 - 4.5 [place] mg/dL [facility] Specimen Anatomical Collection Method Collection Time Receive d Time (Source) Location / / Volume Laterality Blood specimen 01/16/2017 3:32 AM 017 3:37 (specimen) EDT AM EDT Resulting Agency Comment Spec In Lab Nakul Garland MD CHEMISTRY ORDERABLES Performing Organization Address City/[facility]/[place] [address] (ABNORMAL) Magnesium (01/16/2017 3:32 AM EDT) P athologist Signature Magnesium 1.08 (H) 0.69 - 1.07 [place] mmol/L [facility] Specimen Anatomical Collection Method Collection Time Receive d Time (Source) Location / / Volume Laterality Blood specimen 01/16/2017 3:32 AM 017 3:37 (specimen) EDT AM EDT Resulting Agency Comment Spec In Lab Nakul Garland MD CHEMISTRY ORDERABLES Performing Organization Address City/[facility]/ZIP [place] [address] (ABNORMAL) Basic Metabolic Panel (non-fasting) (01/16/2017 3:32 AM EDT) athologist Signature Glucose Lvl 114 65 - 199 [facility] mg/dL [facility] Comment: Diabetes: >=200 mg/dL plus symp toms BUN 130 (H) 8 - 18 mg/dL [facility] Comment: result rechecked-shayla Creatinine 5.99 (H) 0.70 - 1.20 mg/dL [facility] Comment: Please note that the pediatric reference intervals supplied above were not validated at [facility]. Results from pediatri c patients should be interpreted in conjunction to the patient's age, height and muscle mass. Sodium 119 (Critical) 135 - 145 mmol/L [facility] Comment: Result rechecked. Called by: shayla, Read back by: сергей colunga , Date/Time:01/16/17 04:20. Potassium 5.9 (H) 3.5 - 5.0 mmol/L [facility] Comment: Please note: ??Patients with WBC >100,00 0 may have falsely elevated Potassium levels. ??For accurate Potassium quantif ication in these patients send serum separator tube (gold top) for subsequent determinations. ??Contact the Clinical Chemistry Laboratory if there are any qu estions. Chloride 81 (L) 98 - 107 mmol/L [facility] CO2 24 22 - 31 mmol/L [facility] Anion Gap 14 5 - 15 mmol/L [facility] Calcium 8.6 8.5 - 10.5 mg/dL [facility] Estimated GFR 7 (L) >=60 [facility] Comment: This estimated GFR (eGFR) value was calc ulated using the MDRD equation which has been validated on patients between t he ages of 18 and 70. The MDRD should not be used to assess kidney function in patients < 18 years of age or in patients with extremes of body mass, or in patients with acute kidney failure. This value should be multiplied by 1.2 f or patients. For further information please copy and past e the following links into your internet browser. [email or web address] [email or web address] Specimen Anatomical Collection Method Collection Time Receive d Time (Source) Location / / Volume Laterality Blood specimen 01/16/2017 3:32 AM 017 3:37 (specimen) EDT AM EDT Resulting Agency Comment Spec In Lab Nakul Garland MD CHEMISTRY ORDERABLES Performing Organization Address City/[facility]/ZIP [facility] [place] [address] Film Library- Storage Only CT Chest (01/10/2017 12:00 AM EDT) Specimen (Source) Anatomical Location Collection Method / Collectio n Time Received Time / Laterality Volume Narrative [facility] - 01/16/2017 12:30 PM EDT This exam is for storage only and is aut o-finalizing. Nakul Garland MD IMG FILM LIBRARY ORDERABLES Performing Organization Address City/[facility] Phon e Number [place], [place] documented in this encounter Visit Diagnoses Diagnosis Hyperkalemia Hyperpotassemia Hypotension, unspecified hypotension typ e Obesity, unspecified obesity severity, u nspecified obesity type JODY (acute kidney injury) Acute kidney failure, unspecified Pleural effusion on right Unspecified pleural effusion Musculoskeletal chest pain Other chest pain documented in this encounter Admitting Diagnoses Diagnosis JODY (acute kidney injury) Acute kidney failure, unspecified documented in this encounter Administered Medications Inactive Administered Medications - up to 3 most recent administrations Medication Order MAR Action Action Date Dose Rate Site albuterol (PROVENTIL) nebulizer Given 01/17/2017 8:55 AM EDT 2.5 mg solution 10 mg 10 mg, Nebulization, ONCE, 1 dose, On 01/17/17 at 0615, For hyperkalemia, Routine buPROPion (WELLBUTRIN SR or ZYBAN) SR tablet Given 04/2017 8:20 AM EDT 150 mg 150 mg 150 mg, Oral, DAILY, First dose on Tue01/16/17 at 0900, Until Discontinued, DO NOT CRUSH OR OPEN, Routine Given 01/20/2017 8:31 AM EDT 150 mg Given 01/19/2017 10:00 AM EDT 150 mg cefTRIAXone (ROCEPHIN) 2g in Given 01/21/2017 3:00 PM EDT 2,000 mg 100 mL/hr dextrose 5% 50mL 2,000 mg (2 g), Intravenous, EVERY 24 HOURS, First dose (after last modification) on Tue01/19/17 at 1500, Until Discontinued, Administer over 30 Minutes, Indication for (Active or Suspected): Urinary Tract/Pyelonephritis Given 01/20/2017 3:31 PM EDT 2,000 mg 100 mL/hr Given 01/19/2017 2:56 PM EDT 2,000 mg 100 mL/hr citalopram (CeleXA) tablet 20 mg Given 01/21/2017 8:19 AM EDT 20 mg 20 mg, Oral, DAILY, First dose on Tue01/16/17 at 0900, Until Discontinued, Routine Given 01/20/2017 8:31 AM EDT 20 mg Given 01/19/2017 10:00 AM EDT 20 mg fluticasone (FLONASE) 50 mcg/actuation nasal Given 04/2017 8:21 AM EDT 1 spray spray 1 spray 1 spray, Each Nare, DAILY, First dose on Tue01/16/17 at 0900, Until Discontinued, Routine Given 01/20/2017 8:31 AM EDT 1 spray Given 01/19/2017 11:30 AM EDT 1 spray heparin (porcine) subcutaneous injection Given 017 5:23 AM EDT 8,000 Units 8,000 Units 8,000 Units, Subcutaneous, EVERY 8 HOURS SCHEDULED, First dose (after last modification) on Tue01/17/17 at 1615, Until Discontinued, Routine Given 01/19/2017 9:09 PM EDT 8,000 Units Given 01/19/2017 2:10 PM EDT 8,000 Units hydrocortisone sodium succinate (PF) Given 01/18/2017 6:28 AM ED T 100 mg (Solu-CORTEF) injection 100 mg 100 mg, Intravenous, EVERY 8 HOURS SCHEDULED, First dose on Tue01/17/17 at 1400, Until Discontinued Given 01/17/2017 10:15 PM EDT 100 mg Given 01/17/2017 1:52 PM EDT 100 mg insulin lispro (humaLOG) VIAL injection 1-4 Given 02/2017 12:09 AM EDT 1 Units Units 1-4 Units, Subcutaneous, EVERY 4 HOURS SCHEDULED, First dose on Tue01/17/17 at 1800, Until Discontinued, CORRECTION BOLUS Sensitive to insulin lean patient or total daily dose of all insulin needed to achieve glycemic control less than 30 units BG 140 - 160 Give 1 unit BG 161 - 200 Give 2 units BG 201 - 240 Give 3 units BG greater than 240, give 4 units and recheck BG in 2 hours. If BG remains greater than 240, repeat 4 units (no more than three times) & call for new basal insulin orders. If less than 240 after two hours, give no insulin and resume prior schedule., Routine Given 01/18/2017 8:06 PM EDT 2 Units Given 01/18/2017 7:46 AM EDT 2 Units lactated Ringers 1,000 mL IV bolus Given 01/17/2017 12:14 PM EDT Intravenous, ONCE, 1 dose, On Tue01/17/17 at 1230 lactated Ringers 1,000 mL IV bolus Given 01/17/2017 1:13 PM EDT Intravenous, ONCE, 1 dose, On Tue01/17/17 at 1330 lidocaine (XYLOCAINE) 10 mg/mL (1 %) injection Given 0 01/16/2017 9:15 PM EDT 3 mg 3 mg 3 mg, Subcutaneous, ONCE, 1 dose, On Tue01/16/17 at 2115, Routine lidocaine (XYLOCAINE) 10 mg/mL (1 %) inj ection 3 mg 3 mg (0.3 mL), Subcutaneous, ONCE PRN, 1 dose, Startin g on Tue01/16/17 at 2137, Until Tue01/21/17 at 2015, for discomfort with PIV inse rtion, Routine magnesium sulfate 2 g in sterile water 50 Given 01/18/2017 6 :29 AM EDT 2 g 25 mL/hr mL 2 g, Intravenous, ONCE, 1 dose, On Tue01/18/17 at 0600, Administer over 120 Minutes magnesium sulfate 2 g in sterile water 50 Given 01/20/2017 9 :03 PM EDT 2 g 25 mL/hr mL 2 g, Intravenous, ONCE, 1 dose, On Ericka 01/20/17 at 1900, Administer over 120 Minutes multivitamin (THERAGRAN) tablet 1 tablet Given 01/21/2017 8:20 AM EDT 1 tablet 1 tablet, Oral, DAILY, First dose on Tue01/21/17 at 0900, Until Discontinued NORepinephrine 16 mcg/mL Rate/Dose Change 01/19/2017 8:00 AM 2 mcg/ min 7.5 mL/hr (standard ADULT and Steven EDT greater than 20 kg) infusion 0-60 mcg/min (0-225 mL/hr), Intravenous, CONTINUOUS, Starting on Tue01/18/17 at 0445, Until Tue01/19/17 at 1438, Warning Vesicant/Irritant Medication Titrate to keep MAP greater than 65 mmHg. Start at 2 mcg/min and increase by 2 mcg/min every 3 minutes until goal reached. Do not exceed 60 mcg/min, Routine Rate/Dose Change 01/19/2017 6:57 AM EDT 3 mcg/min 11.3 mL/hr Rate/Dose Change 01/19/2017 6:32 AM EDT 1 mcg/min 3.8 mL/hr NORepinephrine NS (LEVOPHED) 4 mg/250 mL (16 mcg/mL) infusion 1 dose, Starting on Tue01/17/17 at 0954, Until Tue01/17/17 at 0958, TREVON MANLEY: cabinet override NORepinephrine(LEVOPHED) 16 Rate/Dose 01/18/2017 4:00 10 mcg/min 37. 5 mL/hr mg/1000 mL in sodium chloride Change AM EDT 0.9% infusion 0-60 mcg/min (0-225 mL/hr), Intravenous, CONTINUOUS, Starting on Tue01/16/17 at 2015, Until Tue01/18/17 at 0418, Titrate to keep MAP greater than 65 mmHg. Start at 2 mcg/min and increase by 2 mcg/min every 3 minutes until goal reached. Do not exceed 60 mcg/min. Rate/Dose Change 01/18/2017 2:00 AM EDT 14 mcg/min 52.5 mL/hr Rate/Dose Change 01/18/2017 12:00 AM EDT 16 mcg/min 60 mL/hr pantoprazole (PROTONIX) injection 40 mg Given 01/17/2017 9:11 AM EDT 40 mg 40 mg, Intravenous, 2 TIMES DAILY, First dose on Tue01/16/17 at 0545, Until Discontinued Given 01/16/2017 6:00 AM EDT 40 mg perflutren protein-A microspheres (OPTISON) Given 12/2016 10:30 AM EDT 0.5 mLs 0.22 mg/mL injection 0.5 mL 0.5 mL, Intravenous, ONCE PRN, 1 dose, Starting on Tue01/17/17 at 1130, Until Tue01/17/17 at 1030, for enhancement of sub-optimal echo images, Echo Lab (Intra-Procedure), Routine PHENYLephrine in NS (PF) New Bag 01/16/2017 9:00 PM EDT 160 mcg/mi n 120 mL/hr (BRIGIDO-SYNEPHRINE) 20 mg/250 mL (80 mcg/mL) infusion Soln 1 dose, Starting on 01/16/17 at 2044, Until Tue01/16/17 at 2100, SKY DARDEN: cabinet override piperacillin-tazobactam (ZOSYN) Given 01/17/2017 1:57 PM EDT 3.3 75 g 12.5 mL/hr 3.375 g vial attach to sodium chloride 0.9% 50 mL Mini-Bag Plus 3.375 g, Intravenous, EVERY 12 HOURS, First dose on Tue01/17/17 at 0200, Until Discontinued, Administer over 4 Hours, Warning Vesicant/Irritant Medication , Indication for (Active or Suspected): Urinary Tract/Pyelonephritis Given 01/17/2017 2:00 AM EDT 3.375 g 12.5 mL/hr piperacillin-tazobactam (ZOSYN) 4.5 g Given 01/19/2017 2:11 PM EDT 4.5 g 25 mL/hr vial attach to sodium chloride 0.9% 100 mL Mini-Bag Plus 4.5 g, Intravenous, EVERY 8 HOURS, 21 doses, First dose (after last modification) on Tue01/17/17 at 2200, Last dose on Tue01/24/17 at 1400, Administer over 4 Hours, Warning Vesicant/Irritant Medication , Indication for (Active or Suspected): Urinary Tract/Pyelonephritis Given 01/19/2017 6:03 AM EDT 4.5 g 25 mL/hr Given 01/18/2017 9:33 PM EDT 4.5 g 25 mL/hr potassium phosphate 10 mMol in sodium Given 01/18/2017 7:34 AM EDT 10 mmol 25 mL/hr chloride 0.9% 100 mL 10 mmol, Intravenous, ONCE, 1 dose, On Tue01/18/17 at 0600, Administer over 4 Hours, Administer over 4-6 hours potassium, sodium phosphates (NEUTRA-PHOS) Given 01/21/2017 5:02 PM EDT 3 g 280-160-250 mg oral packet 3 g 3 g, Oral, 4 TIMES DAILY WITH MEALS & NIGHTLY, First dose on Tue01/19/17 at 1700, Until Discontinued, Take with full glass of water, Routine Given 01/21/2017 11:46 AM EDT 3 g Given 01/21/2017 8:24 AM EDT 3 g sodium chloride 0.45% Rate/Dose Verify 01/18/2017 6:00 AM EDT 75 mL/h r 75 mL/hr infusion 75 mL/hr, Intravenous, CONTINUOUS, Starting on Tue01/17/17 at 0200, Until Tue01/18/17 at 0653 Rate/Dose Verify 01/18/2017 4:00 AM EDT 75 mL/hr 75 mL/hr Rate/Dose Verify 01/18/2017 2:00 AM EDT 75 mL/hr 75 mL/hr sodium chloride 0.9 % flush 5 mL Given 01/21/2017 3:00 PM EDT 5 mLs 5 mL, Intravenous, EVERY 12 HOURS, First dose on Tue01/16/17 at 0245, Until Discontinued, Routine Given 01/21/2017 2:45 AM EDT 5 mLs Given 01/20/2017 2:02 PM EDT 5 mLs sodium chloride 0.9 % flush 5 mL Given 01/21/2017 9:58 AM EDT 5 mLs 5 mL, Intravenous, EVERY 12 HOURS, First dose on Tue01/16/17 at 2200, Until Discontinued, Routine Given 01/20/2017 9:05 PM EDT 5 mLs Given 01/20/2017 9:17 AM EDT 5 mLs sodium chloride 0.9 % flush 5-20 mL 5-20 mL, Intravenous, EVERY 1 MIN PRN, S tarting on Tue01/16/17 at 2137, Until Tue01/21/17 at 2015, flush, Flush pertains to all indwelling lines. Flush per protocol found in the job aid using the link prov ided on this medication record., Routine sodium chloride 0.9% 1,000 mL IV bolus Given 01/16/2017 6:53 PM EDT Intravenous, ONCE, 1 dose, On Tue01/16/17 at 1915 sodium chloride 0.9% 1,000 mL IV bolus Given 01/16/2017 11:27 PM EDT 500 mL/hr at 500 mL/hr, Intravenous, ONCE, 1 dose, On Tue01/16/17 at 2315 sodium chloride 0.9% 1,000 mL IV bolus Given 01/18/2017 12:00 AM EDT Intravenous, ONCE, 1 dose, On Tue01/18/17 at 0000 sodium chloride 0.9% 500 mL IV bolus Given 01/16/2017 6:15 AM EDT Intravenous, ONCE, 1 dose, On Tue01/16/17 at 0630 sodium chloride 0.9% 500 mL IV bolus Given 01/16/2017 5:30 PM EDT Intravenous, ONCE, 1 dose, On Tue01/16/17 at 1730 sodium chloride 0.9% Rate/Dose Change 01/16/2017 8:29 AM 150 mL/hr 1 50 mL/hr infusion EDT 150 mL/hr, Intravenous, CONTINUOUS, Starting on Tue01/16/17 at 0330, Until Tue01/18/17 at 0716 New Bag 01/16/2017 3:32 AM EDT 100 mL/hr 100 mL/hr sodium phosphate 15 mMol in sodium Given 01/19/2017 6:03 AM EDT 15 mmol 37.5 mL/hr chloride 0.9% 150 mL 15 mmol, Intravenous, ONCE, 1 dose, On Tue01/19/17 at 0615, Administer over 4 Hours, Administer over 4-6 hours sodium polystyrene (KAYEXALATE) 15 gram/60 mL Given 11:00 AM EDT 30 g oral suspension 30 g 30 g, Oral, ONCE, 1 dose, On Tue01/16/17 at 1115, STAT vancomycin (VANCOCIN) 2,500 mg in Given 01/18/2017 8:20 AM E DT 2,500 mg 183.3 mL/hr sodium chloride 0.9% 550 mL 2,500 mg, Intravenous, ONCE, 1 dose, On Tue01/18/17 at 0730, Administer over 180 Minutes, Maximum infusion rate is 1 gram/hour. If flushing of the face, neck, upper body, arms, and/or back occurs decrease infusion rate by 50% to reduce the severity of symptoms. This medication may have an associated drug lab level. Please see MAR for scheduled level. Warning Vesicant/Irritant Medication , Indication for (Active or Suspected): Bacteremia/Sepsis vancomycin 2 g in sodium chloride 0.9% 500 Given 01/17 9:04 AM EDT 2,000 mg mL 2,000 mg (2 g), Intravenous, ONCE, 1 dose, On Tue01/17/17 at 0800, Administer over 120 Minutes, This medication may have an associated drug lab level. Please check for lab orders, Indication for (Active or Suspected): Bacteremia/Sepsis vancomycin 2 g in sodium chloride 0.9% 500 Given 01/17 12:24 PM EDT 2,000 mg mL 2,000 mg (2 g), Intravenous, ONCE, 1 dose, On Tue01/17/17 at 1200, Administer over 120 Minutes, This medication may have an associated drug lab level. Please check for lab orders, Indication for (Active or Suspected): Bacteremia/Sepsis vasopressin (VASOSTRICT) 20 unit/mL Given 01/17/2017 1:45 AM EDT 50 Units injection 1 dose, Starting on Tue01/17/17 at 0142, Until Tue01/17/17 at 0145, [place]: cabinet override vasopressin Rate/Dose Verify 01/18/2017 6:00 AM 0.04 Units/min 4.8 mL /hr (VASOSTRICT) 50 Units EDT in sodium chloride 0.9% 100 mL infusion 0.04 Units/min (4.8 mL/hr), Intravenous, CONTINUOUS, Starting on Tue01/17/17 at 0200, Until Tue01/18/17 at 0944 Rate/Dose Verify 01/18/2017 4:00 AM EDT 0.04 Units/min 4.8 mL/hr Rate/Dose Verify 01/18/2017 2:00 AM EDT 0.04 Units/min 4.8 mL/hr vasopressin (VASOSTRICT) 50 New Bag 01/19/2017 4:20 AM EDT 0.0 4 Units/min 4.8 mL/hr Units in sodium chloride 0.9% 100 mL infusion 0.04 Units/min (4.8 mL/hr), Intravenous, CONTINUOUS, Starting on Tue01/18/17 at 1630, Until Tue01/19/17 at 0720, DO NOT TITRATE. Do not exceed 0.04 units/min Restarted 01/18/2017 4:00 PM EDT 0.04 Units/min 4.8 mL/hr documented in this encounter Active and Recently Administered Medications Times are shown in EDT. Scheduled Medication Order 01/19/2017 01/20/2017 01/21/2017 buPROPion (WELLBUTRIN SR or ZYBAN) SR tablet 150 mg 10 00 (Given - Provider: Azucena Murdock RN) 0831 (Given - Provider: Jackie Fleming, OZ) 0820 (Gi danie - Provider: Heidi Estrada, OZ) 150 mg, Oral, DAILY, First dose on Tue at 0900, Until Discontinued, DO NOT CRUSH OR OPEN, Routine cefTRIAXone (ROCEPHIN) 2g in dextrose 5% 50mL 1456 (Gi danie - Provider: Azucena Murdock RN) 1531 (Given - Provider: Jackie Fleming, OZ) 1500 (Gi danie - Provider: Heidi Estrada, OZ) 2,000 mg (2 g), Intravenous, EVERY 24 HO URS, First dose on Tue01/19/17 at 1500, Until Discontinued, Administer over 30 Minutes, Indication for (Active or Suspected): Urinary Tract/Pyelonephritis citalopram (CeleXA) tablet 20 mg 1000 (Given - Provider: Rivera Murdock RN) 0831 (Given - Provider: Jackie Fleming, OZ) 0819 (Given - Provider: Heidi Estrada, OZ) 20 mg, Oral, DAILY, First dose on 11/29 at 0900, Until Discontinued, Routine fluticasone (FLONASE) 50 mcg/actuation nasal spray 1 s pray 1130 (Given - Provider: Azucena Murdock RN) 0831 (Given - Provider: Jackie Fleming, OZ) 0821 (Given - Provider: Heidi Estrada, OZ) 1 spray, Each Nare, DAILY, First dose on Tue01/16/17 at 0900, Until Discontinued, Routine heparin (porcine) subcutaneous injection 8,000 Units ( CANCELED) 0603 (Given - Provider: Denisse Grider RN)1410 (Given - Provider: Azucena Murdock RN)2109 (Given - Provider: Olga Anna, OZ) 0523 (Given - Provider: Olga Anna, OZ) 8,000 Units, Subcutaneous, EVERY 8 HOURS SCHEDULED, First dose on Tue01/17/17 at 1615, Until Discontinued, Routine insulin lispro (humaLOG) VIAL injection 1-4 Units (CAN CELED) 0009 (Given - Provider: Denisse Grider, OZ)0400 (Not Given - Provider: Denisse Grider RN - Reason: Order parameters not met)0917 (Not Given - Provider: Nicole Aguilar RN - Reason: Order parameters not met) 1-4 Units, Subcutaneous, EVERY 4 HOURS S CHEDULED, First dose on Tue01/17/17 at 1800, Until Discontinued, CORRECTION BOLUS Sensitive to insulin lean patient or total daily dose of all insulin needed t 1200 (Not Given - Provider: Azucena Murdock RN - Reason: See comment)1600 (Not Given - Provider: Olga Anna, OZ - Reason: Medication Discontinued) o achieve glycemic control less than 30 units BG 140 - 160 Give 1 unit BG 161 - 200 Give 2 units BG 201 - 240 Give 3 units BG greater than 240, give 4 units and recheck BG in 2 hours. If BG remains grea ter than 240, repeat 4 units (no more th an three times) & call for new basal insulin orders. If less than 240 after two hours, give no insulin and resume prior schedule., Routine magnesium sulfate 2 g in sterile water 50 mL (COMPLETED) 2102 (Given - Provider: Esther Colon, OZ) 2 g, Intravenous, ONCE, 1 dose, Ericka 01/20/17 at 1900, Ad heel coverer over 120 Minutes multivitamin (THERAGRAN) tablet 1 tablet 0820 (Given - Provider: Heidi Estrada, OZ) 1 tablet, Oral, DAILY, First dose on Tue01/21/17 at 0900, Until Discontinued, Routine piperacillin-tazobactam (ZOSYN) 4.5 g vi al attach to sodium chloride 0.9% 100 mL Mini-Bag Plus (CANCELED) 0603 (Given - Provider: Denisse Grider , RN)1411 (Given - Provider: Azucena Murdock RN) 4.5 g, Intravenous, EVERY 8 HOURS, 21 do ses, First dose on Tue01/17/17 at 2200, Last dose on Tue01/24/17 at 1400, Administer over 4 Hours, Warning Vesicant/Irritant Medication , Indication for (Active or Suspected): Urinary Tract/Pyelonephritis potassium, sodium phosphates (NEUTRA-PHOS) 280-160-250 mg oral packet 3 g 1700 (Not Given - Provider: Martha Ontiveros RN - Reason: Medication not available)204 (Given - Provider: Olga Anna RN) 0836 (Given - Provider: Jackie Fleming RN)1154 (Given - Provider: Jackie Fleming, OZ)1723 (Given - Provider: Jackie Fleming RN)2030 (Given - Provider: Esther Colon RN) 0824 (Given - Provider: Heidi Estrada, OZ)1146 (Given - Provider: Heidi Estrada, OZ)1702 (Given - Provider: Heidi Estrada, OZ) 3 g, Oral, 4 TIMES DAILY WITH MEALS & NI GHTLY, First dose on Tue01/19/17 at 1700, Until Discontinued, Take with full glass of water, Routine sodium chloride 0.9 % flush 5 mL 0245 (Given - Provide r: Denisse Grider RN)1411 (Given - Provider: Azucena Murdock RN) 0832 (Given - Provider: Jackie Fleming, OZ)1402 (Given - Provider: Jackie Fleming, OZ) 0245 (Given - Provider: Esther Colon RN)1500 (Given - Provider: Heidi Estrada RN) 5 mL, Intravenous, EVERY 12 HOURS, First dose on Tue01/16/17 at 0245, Until Discontinued, Routine sodium chloride 0.9 % flush 5 mL 1045 (Given - Provide r: Azucena Murdock RN)2109 (Given - Provider: Olga Anna RN) 0917 (Given - Provider: Jackie Fleming, RN)2105 (Given - Provider: Esther Colon, OZ) 0958 (Given - Provider: Heidi Estrada, OZ) 5 mL, Intravenous, EVERY 12 HOURS, First dose on Tue01/16/17 at 2200, Until Discontinued, Routine sodium phosphate 15 mMol in sodium chloride 0.9% 150 m L (COMPLETED) 0603 (Given - Provider: Denisse Grider RN) 15 mmol, Intravenous, ONCE, 1 dose, Tue01/19/17 at 0615, Administer over 4 Hours, Administer over 4-6 hours Continuous Medication Order 01/19/2017 01/20/2017 01/21/2017 NORepinephrine 16 mcg/mL (standard ADULT and Steven greater than 20 kg) infusion (CANCELED) 0010 (Rate/Dose Change - Provider: Minnie Grider RN)0413 (Rate/Dose Change - Provider: Denisse Grider RN)0453 (Rate/Dose Change - Provider: Denisse Grider RN)0525 (Paused - Provider: Denisse Grider RN) 0-60 mcg/min (0-225 mL/hr), Intravenous, at 0-225 mL/hr, CONTINUOUS, Starting Tue01/18/17 at 0445, Until Tue01/19/17 at 1438, Warning Vesicant/Irritant Medication Titrate to keep MAP greater than 65 0632 (Rate/Dose Change - Provider: Denisse Grider RN)0657 (Rate/Dose Change - Provider: Denisse Grider RN)0800 (Rate/Dose Change - Provider: Azucena Murdock, OZ)1000 (Stopped - Provider: Azucena Murdock RN) mmHg. Start at 2 mcg/min and increase b y 2 mcg/min every 3 minutes until goal reached. Do not exceed 60 mcg/min, Routine vasopressin (VASOSTRICT) 50 Units in sod ium chloride 0.9% 100 mL infusion (CANCELED) 0420 (New Bag - Provider: Denisse shipman RN)0552 (Paused - Provider: Denisse Grider RN) 0.04 Units/min (4.8 mL/hr), at 4.8 mL/hr , Intravenous, CONTINUOUS, Starting Tu01/18/17 at 1630, Until Tue01/19/17 at 0720, DO NOT TITRATE. Do not exceed 0.04 units/min PRN Medication Order 01/19/2017 01/20/2017 01/21/2017 acetaminophen (TYLENOL) tablet 650 mg 650 mg, Oral, EVERY 6 HOURS PRN, Startin g 01/16/17 at 022, Until Tue01/21/17 at 2014, Pain, Fever, Administer for temperature greater than 38.3??C or if temperature is greater than 38.0??C for at leas t an hour. Maximum dose of acetaminophen is 4000 mg from all sources in 24 hours., Routine ipratropium-albuterol (DUONEB) 0.5 mg-3 mg(2.5 mg base)/3 mL nebulizer solution 3 mL 3 mL, Nebulization, EVERY 4 HOURS PRN, S tarting 01/16/17 at 022, Until Tue01/21/17 at 2014, Wheezing, Routine lidocaine (XYLOCAINE) 10 mg/mL (1 %) injection 3 mg 3 mg (0.3 mL), Subcutaneous, ONCE PRN, 1 dose, Starting Tue01/16/17 at 022, Until Tue01/21/17 at 2014, for discomfort with PIV insertion, Routine lidocaine (XYLOCAINE) 10 mg/mL (1 %) injection 3 mg 3 mg (0.3 mL), Subcutaneous, ONCE PRN, 1 dose, Starting Tue01/16/17 at 2137, Until Tue01/21/17 at 2014, for discomfort with PIV insertion, Routine melatonin tablet 3-6 mg 3-6 mg, Oral, NIGHTLY PRN, Starting 01/16/17 at 022, Until Tue01/21/17 at 2014, sleep, Start with 3 mg dose. May repeat 3 mg dose if patient still not able to sleep and can subsequently use 6 mg dose nightly from there on., Routine polyethylene glycol (MIRALAX) packet 17 g 17 g, Oral, DAILY PRN, Starting Sun at 0227, Until Tue01/21/17 at 2014, Constipation, Use if senna-docusate laxative ineffective, or per patient request., Routine senna-docusate (PERICOLACE) 8.6-50 mg per tablet 2 tablet 2 tablet, Oral, 2 TIMES DAILY PRN, Start ing 01/16/17 at 0227, Until Tue01/21/17 at 2014, Constipation, Use first for constipation if multiple laxatives/softeners ordered, or per patient request., Routine sodium chloride 0.9 % flush 5-20 mL 5-20 mL, Intravenous, EVERY 1 MIN PRN, S tarting 01/16/17 at 0227, Until Tue01/21/17 at 2014, flush, Flush pertains to all indwelling lines. Flush per protocol found in the job aid using the link provided on this medication record., Routine sodium chloride 0.9 % flush 5-20 mL 5-20 mL, Intravenous, EVERY 1 MIN PRN, S tarting 01/16/17 at 2137, Until Tue01/21/17 at 2014, flush, Flush pertains to all indwelling lines. Flush per protocol found in the job aid using the link provided on this medication record., Routine documented in this encounter Care Teams Rehab Nurse Relationship Specialty Start Date End Date Alphonso Murphy MD PCP - General Family Medicine 02/19/[address] [place] [address] documented as of this encounter
--- OUTSIDE RECORDS SUMMARY | 2022-03-05 02:18 | XMS_ITS | Encounter Summary ---
:1955 Author Organization [facility] [place] [address] Care Team Providers Name Role Phone Sunitha Trotter MD Primary Care Provider Reason for Visit Reason Comments Advice Only right chest wall pain after fall Encounter Details Date Type Department Care Team Description 10/08/2014 Office Visit Hematology and CLINIC, DR VICTOR Pleural ef fusion on right; [place]cology at [facility] Shahram Sheehan, DO [address] [place] [address] Morbid obesity; [facility] Sunny Mota MD [facility] [place] [address] [place] [address] Social History Tobacco Use Types Packs/Day Years Used Date Former Smoker 3 40 Quit: 10/08/19 11 Sex Assigned at Date Recorded Not on file documented as of this encounter Last Filed Vital Signs Vital Sign Reading Time Taken Comments Blood Pressure 147/91 10/08/2014 2:55 PM EST Pulse 100 10/08/2014 2:55 PM EST Temperature 36.8 ??C (98.2 ??F) 10/08/2014 2:55 PM EST Respiratory Rate 18 10/08/2014 2:55 PM EST Oxygen Saturation 96% 10/08/2014 2:55 PM EST Inhaled Oxygen Concentration - - Weight 174.6 kg (385 lb) 10/08/2014 2:55 PM EST Height 161.3 cm (5' 3.5) 10/08/2014 2:55 PM EST Body Mass Index 67.13 10/08/2014 2:55 PM EST documented in this encounter H&P Notes Keron Gu MD - 10/08/2014 3:13 PM EST Date of History and Physical: 10/08/2014 Service: Thoracic Surgery Place of Service: [address] [place] [address] Attending: Dr. Sunny Mota Patient Name: Radha Masterson Patient Age: 59 y.o. Birthdate: 1955 Admit date: (Not on file) Attending Physician: Sunny Mota MD PCP: SUNITHA TROTTER MD Chief Complaint: Posterior right thoracic pain Secondary Diagnosis: Severe COPD requiring O2 History of Present Illness: Radha Masterson 59 y.o. female presents to clinic with a months-long history of posterior right thoracic pain that shoots around to the ipsilateral inframammary fold on occasion. In 04/2014, she sommersaulted off her mechanized wheelchair on to a ramp, striking her right chest and causing a pleural effusion that was drained. A 07/2014 CT chest demonstrated some reaccumulation of fluid, which appears to have mostly resolved by the CXR on 09/17/2014. Her car mechanic, Dr. Lozano, referred her to Thoracic surgery for evaluation of her ongoing thoracic pain. She currently takes no pain medication, but reports that when she breathes deeply, It feels like [her] lung is popping out of her chest. PMH: Morbid obesity COPD requiring 2L O2 therapy while awake, 4L while asleep DAVID PSH: Past Surgical History Procedure Laterality Date ??? Created by interface COLONOSCOPY (ENDO) [...] / LEFT/AMAN LCCK/AMAN LPS/ANTIBIOTIC CEMENT ProcedureDate: 11/23/2005 Updated Allergies/ADRs: Allergies Allergen Reactions ??? Iodinated Contrast Media - Iv Dye ??? Iodine And Iodide Containing Products CIS - Rash, CIS - Rash ??? Morphine Rash ??? 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 Physical Exam: Last value Range last 12 hrs Temperature Temp: 36.8 ??C (98.2 ??F) Temp: [36.8 ??C (98.2 ??F)] Heart Rate Heart Rate: 100 Heart Rate: [100] Blood Pressure BP: 147/91 mmHg BP: (147)/(91) Respiratory Rate Resp: 18 Resp: [18] SpO2 SpO2: 96 % SpO2: [96 %] Neuro: NAD, AOx3, sensation in tact to light touch b/l UE/LE/trunk HEENT: PERRL CV: RRR no m/r/g/h Pulm: adequate effort CTAB no w/c/r TTP posterior and lateral R thorax, GI: soft, NT, ND MSK: 5/5 b/l UE/LE strength PV: b/l UE/LE warm and well-perfused Integ: no lesions or rashes on b/l UE/LE/trunk Lab Data: Last 3 wbc, hgb, hct plt Recent Labs 06/11/14 1126 12/18/13 1325 WBC -- 7.2 HGB -- 13.9 HCT -- 42.2 PLATELET 251 261 Last 3 Lytes Recent Labs 12/18/13 1325 NA 140 K 3.9 CL 106 CO2 23 BUN 17 CREATININE 0.66* Last 3 LFTs Microbiology none Radiology Studies: Xr Chest Routine Pa & Lateral 09/20/2014 IMPRESSION: No evidence for pleural effusions or other acute cardiac pulmonary findings. Low lung volumes bilaterally. This report was reviewed by Vince Dillard at 09/20/2014 2:02 PM Film and interpretation reviewed by the attending 07/16/2014 CT Chest - Moderate right pleural effusion, no skeletal or body wall abnormality A/P: Radha Masterson is a 59 y.o. female with persistent posterior right thoracic pain associated with a 04/2014 fall. The patient reports that her pain is exquisitely sensitive to touch and has not improved despite medication with gabapentin. On reviewing the available imaging, her right pleural effusion seems to have resolved and there appears to be no anatomic reason for her pain. As such we feel that she will be best served with a chronic pain consultation for medical management of this issue. Radha Masterson does not need to follow-up with thoracic surgery for this issue. Signed: Keron uG MD 10/08/2014 3:13 PM CC: [address] / [facility] [id number] REF: Padmini Lozano MD [facility] [place] [address] I have seen the patient and reviewed the resident's above history and I agree with the details as written. The assessment and plan were formulated in discussion with me and I agree with them as documented. Pertinent History: 59 y/o morbidly obese woman who fell last year off her wheelchair causing a rightpleural effusion which was drained. CT and then f/u CXR showed improvement in effusion but she continues to have pain. Pertinent Exam: Tenderness posterior right chest to very minimal palpation c/w hyperasthesias Major issues addressed: Chest wall pain, obesity Plan: No anatomic reason for pain. This most likely represents nerve damage from her original fall and should improve over time. If it does not improve over the next 3-6 weeks we recommend consultationof the pain service. She will follow up with thoracic surgery on a prn basis. documented in this encounter Plan of Treatment Not on filedocumented as of this encounter Visit Diagnoses Diagnosis Pleural effusion on right Unspecified pleural effusion Morbid obesity Musculoskeletal chest pain Other chest pain documented in this encounter Care Teams Furnace Tapper Relationship Specialty Start Date End Date Sunitha Trotter MD PCP - General 07/07/10 02/18/16 [address] [place], [place] [address] documented as of this encounter
--- OUTSIDE RECORDS SUMMARY | 2022-03-05 02:18 | XMS_ITS | Encounter Summary ---
:1955 Author Organization [facility] [place] [address] Care Team Providers Name Role Phone Sunitha Milligan MD Primary Care Provider Encounter Details Date Type Department Care Team Description 08/01/2014 Telephone Pulmonology at [facility] Padmini Lozano MD [facility] [place] [phone] PULMONARY MEDICINE [phone] [place], [place] [address] (Wo rk) Social History Tobacco Use Types Packs/Day Years Used Date Former Smoker Sex Assigned at Date Recorded Not on file documented as of this encounter Miscellaneous Notes Telephone Encounter - Padmini Lozano MD - 08/01/2014 3:34 PM EST Called and notified her of the CXR result. I am planning to have her back in the clinic in 4-8 weekswith another CXR. 08/01/2014 EXAMINATION: CHEST ROUTINE 2 VIEWS CLINICAL [...] pleural effusion or other acute pulmonary abnormality documented in this encounter Plan of Treatment Not on filedocumented as of this encounter Results XR chest routine PA & lateral (09/20/2014 1:02 PM EST) Anatomical Region Laterality Modality Chest N/A Radiographic Imaging Specimen (Source) Anatomical Collection Method Collection Time Re ceived Time Location / / Volume Laterality 09/20/2014 1:02 PM EST Impressions 09/20/2014 2:07 PM EST IMPRESSION: No evidence for pleural effusions or oth er acute cardiac pulmonary findings. Low lung volumes bilaterally. This report was reviewed by Vince daigle at 09/20/2014 2:02 PM Film and interpretation reviewed by the attending Narrative 09/20/2014 2:07 PM EST EXAMINATION: CHEST ROUTINE 2 VIEWS CLINICAL HISTORY: h/o persistent pleural effusion after hemothorax in 03/2014. last cxr 08/01/14. ??4 weeks f/u. ??than ks TECHNIQUE: Frontal and lateral views of the chest COMPARISON: Chest x-ray 08/01/2014 FINDINGS: There are low lung volumes bilaterally. There is mild atelectatic changes in the right lower lobe. The cardiac mediastina l silhouette is unchanged. There are no pleural effusions or pneumothorax presen t. Procedure Note Vince Dillard MD - 09/20/2014Formatt ing of this note might be different from the original. EXAMINATION: CHEST ROUTINE 2 VIEWS CLINICAL HISTORY: h/o persistent pleural effusion after hemothorax in 03/2014. last cxr 08/01/14. 4 weeks f/u. thanks TECHNIQUE: Frontal and lateral views of the chest COMPARISON: Chest x-ray 08/01/2014 FINDINGS: There are low lung volumes bilaterally. There is mild atelectatic changes in the right lower lobe. The cardiac mediastina l silhouette is unchanged. There are no pleural effusions or pneumothorax presen t. IMPRESSION IMPRESSION: No evidence for pleural effusions or oth er acute cardiac pulmonary findings. Low lung volumes bilaterally. This report was reviewed by Vince daigle at 09/20/2014 2:02 PM Film and interpretation reviewed by the attending Padmini Lozano MD IMG DX ORDERABLES documented in this encounter Visit Diagnoses Diagnosis Pleural effusion Unspecified pleural effusion Pleural effusion Unspecified pleural effusion documented in this encounter Care Teams Animal Nurse Relationship Specialty Start Date End Date Sunitha Milligan MD PCP - General 07/07/10 02/18/16 [address] [place] [address] documented as of this encounter
--- OUTSIDE RECORDS SUMMARY | 2022-03-05 02:18 | XMS_ITS | Encounter Summary ---
:1955 Author Organization [facility] [place] [address] Care Team Providers Name Role Phone Alphonso Murphy MD Primary Care Provider [phone] Reason for Referral Diagnostic Test (Routine) - Closed Specialty Diagnoses / Procedures Referred By Contact Refer red To Contact Radiology Diagnoses Chest pain, unspecified type Alphonso Murphy MD [facility] Rad Ct Scan Procedures CT Chest Pulmonary Embolism With Contrast [address] [place], [place] [address] [place] [address] Phone: Referral ID Status Reason Start Date Expiration Date Visits V isits Requested Authorized [id number] Closed Specialty 02/17/2016 02/16/2017 1 1 Service Requested Reason for Visit Diagnostic Test (Routine) - Closed Specialty Diagnoses / Procedures Referred By Contact Refer red To Contact Radiology Diagnoses Chest pain, unspecified type Alphonso Murphy MD [facility] Rad Ct Scan Procedures CT Chest Pulmonary Embolism With Contrast [address] [place] [address] [place] [address] Phone: Referral ID Status Reason Start Date Expiration Date Visits V isits Requested Authorized [id number] Closed Specialty 02/17/2016 02/16/2017 1 1 Service Requested Encounter Details Date Type Department Care Team Description 02/19/[address] [place] [facility] Alphonso Murphy Chest pain, [facility] MD eSlene unspecified type Drive [address] [place] [place] [address] [address] [place], [place] [phone] Social History Tobacco Use Types Packs/Day Years Used Date Former Smoker 3 40 Quit: 10/08/19 11 Sex Assigned at Date Recorded Not on file documented as of this encounter Medications at Time of Discharge Medication Sig Dispensed Refills Start Date End Date OXYGEN-AIR DELIVERY 2 L. 0 12/24/2014 SYSTEMS MISC furosemide (LASIX) 40 mg 0 05/15/2014 01/16/2017 [...] Date/Time Associated Diagnosis Comme nts CT CHEST PULMONARY Routine 02/19/2016 3:58 PM Chest pain, Res ults for this EMBOLISM W CONTRAST EDT unspecified type proc edure are in the results section. documented in this encounter Results (ABNORMAL) CT Chest Pulmonary Embolism With Contrast (02/19/2016 3:58 PM EDT) Anatomical Region Laterality Modality Chest Computed Tomography Specimen (Source) Anatomical Location Collection Method / Collectio n Time Received Time / Laterality Volume Impressions 02/19/2016 6:21 PM EDT Image quality is quite limited as detailed above. No large central pulmonary arterial embo isidra. Multiple segmental and subsegmental branches of the pulmonary arteries canno t be evaluated with certainty. Small to moderate-sized pleural effusion on the left. UNEXPECTED FINDING of further enlargemen t of a left thyroid nodularity. Recommend ultrasound correlation to asse ss for any discrete nodule that would raise concern for malignancy. Findings and limitations called and disc ussed in detail by Dr. Robin Frazier with nurse Weems (Dr. RANDY MURPHY was not available and no other provider was immediately available either) on ??02/19/2016 4:57 PM. Awaiting call back. Complete impression and recommendations discussed by Dr. Robin Frazier with Dr. Fabian at 02/19/2016 5:12 PM. Narrative 02/19/2016 6:21 PM EDT EXAMINATION: CT angiogram of pulmonary arteries CLINICAL HISTORY: Left Pleuritic c/p TECHNIQUE: Helical CT of the chest was p erformed after intravenous contrast administration of 75cc and 60cc of Omnip aque 350. Exam was repeated. Thin-section reconstructions as well as coronal and sagittal reformatted images were generated to aid in evaluation. COMPARISON: CT July 16, 2014. FINDINGS: Quite limited image quality due to diffi culties with timing of the contrast bolus (on the first as well as on the re peat exam), breathing motion artifacts, and patient's body habitus. Pulmonary arteries: Maximal achieved enh ancement in the main pulmonary artery is only 180 Hounsfield units. No pulmonary arterial filling defect in the main pulmonary arteries or lobar pulmonary ar teries. Several of the segmental and the subsegmental arteries are insufficiently evaluated. No evidence of right heart strain. Small to moderate-sized pleural effusion on the left and trace effusion on the right. Associated compression atelectasi s is primarily seen in the left lower lobe. Low degree of inspiratory depth as indic ated by the concavity of the posterior border of the trachea accounts for the d iffuse mild hazy opacities of both lungs. Enlargement of the thyroid gland, especi ally of the left lobe. Findings on the left are suspicious for a partially calc ified nodule, which cannot be well from the remainder of the tiss ue of the thyroid gland, however, may be 2.5 cm in size. Inferior extent of this nodule has slightly increased when compared to a more remote exam from 2012. No lymphadenopathy within the chest. Limited views of the upper abdomen: Fatt y infiltration of the pancreas is seen again. Skeletal structures: Degenerative change s. No aggressive lesion. Resulting Agency Comment Unexpected Finding Alphonso Murphy MD IMG CT ORDERABLES documented in this encounter Visit Diagnoses Diagnosis Chest pain, unspecified type documented in this encounter Administered Medications Inactive Administered Medications - up to 3 most recent administrations Medication Order MAR Action Action Date Dose Rate Site iohexol (OMNIPAQUE) 350 mg/mL Given 02/19/2016 3:59 PM EDT 52,50 0 mg solution 52,500 mg 52,500 mg (150 mL), Intravenous, ONCE PRN, 1 dose, Starting on Ericka 02/19/16 at 1558, Until Ericka 02/19/16 at 1559, Per Protocol, Warning Vesicant/Irritant Medication , Routine documented in this encounter Care Teams Electronic Assembly Relationship Specialty Start Date End Date Alphonso Murphy MD PCP - General Family Medicine 02/19/[address] [place] [address] documented as of this encounter
--- OUTSIDE RECORDS SUMMARY | 2022-03-05 02:18 | XMS_ITS | Encounter Summary ---
:1955 Author Organization [facility] [place] [address] Care Team Providers Name Role Phone Sunitha Milligan MD Primary Care Provider Encounter Details Date Type Department Care Team Description 09/20/2014 Hospital Encounter XRay at [facility] Pleural effusion [address] [place] [address] [place] [phone] Social History Tobacco Use Types Packs/Day [...] Comme nts XR CHEST PA AND Routine 09/20/2014 1:02 PM Pleural effusion Re sults for this LATERAL EST procedure are i [...] effusion documented in this encounter Care Teams Quality Liaison Relationship Specialty Start Date End Date Sunitha Milligan MD PCP - General 07/07/10 02/18/16 [address] [place] [address] documented as of this encounter
--- OUTSIDE RECORDS SUMMARY | 2022-03-05 02:18 | XMS_ITS | Encounter Summary ---
:1955 Author Organization [facility] [place] [address] Care Team Providers Name Role Phone Sunitha Trotter MD Primary Care Provider Encounter Details Date Type Department Care Team Description 06/20/[address] Scan at [facility], [facility] Pleural effusion [facility] Michele Eastman MD [facility] [address] PULMONARY [place] [address] [place] [address] Social History Tobacco Use Types Packs/Day Years Used Date Former Smoker Sex Assigned at Date Recorded Not on file documented as of this encounter Last Filed Vital Signs Vital Sign Reading Time Taken Comments Blood Pressure 137/75 06/20/2014 2:00 PM EST Pulse 82 06/20/2014 2:00 PM EST Temperature 36.7 ??C (98.1 ??F) 06/20/2014 1:25 PM EST Respiratory Rate 20 06/20/2014 2:00 PM EST Oxygen Saturation 98% 06/20/2014 2:00 PM EST Inhaled Oxygen Concentration - - Weight - - Height - - Body Mass Index - - documented in this encounter Discharge Instructions Discharge Jose Kristyn M, RN - 06/20/2014 1:42 PM EST [facility] Vascular and Interventional Radiology Discharge Instructions Following Your Thoracentesis (drainage of the fluid around your lung) Activity and Diet: Go home and rest quietly for the remainder of the day. You may resume your normalactivities tomorrow. You have received medication during your procedure to help lesson anxiety and keep you comfortable. These medications affect judgment and reaction time. Because of the sedation, be careful on stairs, as you may be unsteady on your feet. We recommend that you do not drive, operate equipment, sign any important documents, or smoke unattended for 24 hours following your procedure. Resume your usual diet after the procedure. Bandage: There is a sterile dressing over the puncture site consisting of a small gauze with a cleardressing (Tegaderm). This dressing should be left in place for 24 hours. If the clear dressing becomes loose, you should place tape over the edges to secure it in place. Bathing: Do not take a shower until 24 hours after your procedure; after this time you may shower with the dressing in place, then remove it and pat your skin dry. You may use a bandaid to cover the site if there is any drainage. When to call your healthcare provider: *If you notice bleeding or a bulge from the puncture site. You should apply firm pressure over the site for 10-15 minutes, keeping the site covered. If you are still bleeding after 10-15 minutes, reapply pressure, and have someone drive you to the nearest Emergency Department, or call 911. *If you develop pain in your chest, shoulder or back, of if you develop shortness of breath which isnew, or worse than normal for you. *If you develop pain, redness, drainage or swelling at or around the puncture site. *If you develop fever equal to or greater than 101F and/or shaking chills. *It is normal for your intravenous site to be slightly tender and red. You may use a warm compress to help with the symptoms. If tenderness or redness persists, or increases, or you notice drainage from the site, please contact your healthcare provider. When to call the Interventional Radiology Department: Please call with any questions or concerns. Ifit is during regular office hours, please call [phone]. If it is after regular office hours, oron weekends or holidays, please call [phone] and ask to speak to the [employer]eder on callfor Interventional Radiology. documented in this encounter Medications at Time [...] documented as of this encounter Progress Notes Juan Hanks MD - 06/20/2014 11:28 AM EST Vascular and Interventional Radiology PRE-SEDATION ASSESSMENT / FOCUSED H&P Procedure: CT-guided thoracentesis The patient's history and physical exam have been reviewed and completed. There has been no intervalchange from that of the pre-operative history and physical exam done within the last 30 days. The planned procedure, its benefits and risks were discussed with the patient. The patient consentedto the procedure. I have reviewed with the patient, their prior experience with sedation. The patient has been NPO perprotocol. I have reviewed the sedation plan for this patient???s case and concur that Fentanyl and Versed are appropriate choices for sedation and will be provided per the protocoled order set for this case Physical Examination: Chest: clear to auscultation, no wheezes, rales or rhonchi, symmetric air entry Heart: normal rate and regular rhythm ASA Classification: ASA 3 - Patient with moderate systemic disease with functional limitations Mallampati Classification: III (soft palate, base of uvula visible)?? - Juan Hanks MD (Pager #[phone]) 06/20/2014 PRE-PROCEDURE VIR NOTE: Referring Physician: Dr Eastman PCP: SUNITHA TROTTER MD Planned Procedure: Right thoracentesis Procedure Indication: Recurrent effusion Presenting Diagnosis/ Complaint: Cyn Masterson is a 59 y.o. obese female with right pleural effusion after a fall, previously treated with chest tube in March. Effusion has recurred. Drainage attemptedin IR; unsuccessful due to patient body habitus. Per Dr Eastman's note 05/21: The fluid should be sent [...] 06/11/2014 Prior relevant imaging: CT scan in eD 06/11/14 shows moderate right effusion Assessment/Plan: *Send fluid for labs as above* Patient Position: At discretion of automatic serging machine operator Biopsy/drain access site: RIGHT pleural fluid Medications to discontinue (and days): Aspirin x 3 days Labs: [obtain per CT protocol] General anesthesia required: [no] Buffy Diaz RN - 06/17/2014 4:58 PM EST VIR NURSING DATABASE Name: CYN MASTERSON Date of : 1955 AGE 59 y.o. Address: [address] [address] Phone: There are no phone numbers on file. Mobile: Telephone Information: Referring Provider: Mendy Talbot Reason for Visit: CT guided R sided diagnostic thoracentesis Assessment/Plan: Patient Position: At discretion of automatic serging machine operator Biopsy/drain access site: RIGHT pleural fluid Medications to discontinue (and days): Aspirin x 3 days Labs: [obtain per CT protocol] General anesthesia required: [no] Allergies Allergen Reactions ??? Iodinated Contrast Media - Iv Dye ??? Iodine-Iodine Containing CIS - Rash, CIS - Rash ??? Morphine Rash ??? Oxycodone Rash Pertinent PMH: Patient Active Problem List [...] Fentanyl 150 mcg IV, albuterol neb treatment 06/20/14 CT guided right thoracentesis/ 400 ml Fentanyl 50 mcg IV Laboratory Results: No results found for this basename: inr No results found for this basename: PT, PTT Lab Results Component Value Date BUN 17 12/18/2013 Lab Results Component Value Date CREATININE 0.66* 12/18/2013 Lab Results Component Value Date K 3.9 12/18/2013 Lab Results Component Value Date PLATELET 251 06/11/2014 Medications: Prior to Admission medications Medication Sig Start Date End Date Taking? Authorizing Provider acetaminophen-codeine (TYLENOL #3) 300-30 mg Tablet 05/03/14 Sumanth Kapadia MD furosemide (LASIX) 40 mg Tablet 05/15/14 Sumanth Kapadia MD metolazone (ZAROXOLYN) 2.5 mg Tablet 05/15/14 Sumanth Kapadia MD potassium chloride (MICRO-K) 10 mEq Capsule, Sustained Release 12/21/13 Sumanth Kapadia MD zolpidem (AMBIEN) 10 mg Tablet 04/04/14 Sumanth Kapadia MD gabapentin (NEURONTIN) 800 mg tablet 800 [...] informed this patient that they require a patrol driver to drive them home after this procedure. In the absence of a patrol driver, IR will not be able to perform this procedure andwill need to reschedule. Pt verbalized understanding of these instructions during the pre-procedure e ducation via phone. (initials) Pt has informed caller that blood thinner was stopped on per order. documented in this encounter Procedure Notes Samy Padilla MD - 06/20/2014 1:20 PM EST RADIOLOGY PROCEDURE NOTE Procedure: CT guided aspiration of right pleural effusion Acc#: [id number] Indication for Procedure: right pleural effusion Procedure events and findings: Technique: After obtaining informed consent the patient was positioned supine on the CT table. Following a time-out, the right pleural fluid collection was localized with unenhanced axial CT images. After sterile preparation of the overlying skin, 1% lidocaine SQ was administered for local anesthesia.Under CT fluoroscopic guidance a 18G Ciba needle was advanced into the collection. After removing the stylet there was return of serous fluid. Approximately 450cc of serosanguinous fluid was aspirated and sample sent for microbiology analysis. Post aspiration images demonstrated no complication. The patient tolerated the procedure well. Medications: Fentanyl 50 mcg IV, Versed 0 mg IV , 1% Lidocaine 10ml Antibiotic Prophylaxis: none Complications: None Impression: completely successful CT-guided aspiration of a right pleural effusion. Microbiology studies are pending. Fellow: Dr. Juan Hanks Attending: I, Dr. Padilla was present for the procedure. documented in this encounter Plan of Treatment Not on filedocumented as of this encounter Procedures Procedure Name Priority Date/Time Associated Comments Diagnosis FUNGUS CULTURE & CALC Routine 06/20/2014 1:30 PM STAIN EST ANAEROBIC CULTURE Routine 06/20/2014 1:30 PM Resu lts for this EST procedure are i n the results section. BODY FLUID CULTURE, Routine 06/20/2014 1:30 PM AEROBIC & ANAEROBIC EST FUNGAL STAIN Routine 06/20/2014 1:30 PM Results f or this EST procedure are i n the results section. BODY FLUID CULTURE, Routine 06/20/2014 1:30 PM Re sults for this AEROBIC EST procedure are i n the results section. FUNGUS CULTURE Routine 06/20/2014 1:30 PM Results for this EST procedure are i n the results section. CT THORACENTESIS Routine 06/20/2014 1:28 PM Resul ts for this EST procedure are i n the results section. documented in this encounter Results Anaerobic Culture (06/20/2014 1:30 PM EST) Component Value Ref Test Analysis Performed At [facility] Range Method Time Signature Anaerobic CERNER Culture ? Patient Name: CYN MASTERSON ?Ordered By: MICHELE EASTMAN ? MR#: [id number] ?LOC: ??3ZC ? /Sex: ??1955 (59 years), ? Female ? PROCEDURE: Anaerobic Culture ?SOURCE: Pleural Fl ? COLLECTED: 06/20/2014 13:30 ?FREE TEXT SOURCE: RIGHT PLEURAL EFFUSION - CT GUIDE D ? STARTED: 06/20/2014 13:57 ? THORACENTESIS ? FINAL REPORT ? Final Report ? Verified:06/24/2014 14:03 ? No anaerobic organisms isolated ? PRELIMINARY REPORT ? Preliminary Report ? Verified:06/21/2014 14:52 ? No anaerobic organisms isolated to date ? Specimen Anatomical Collection Method Collection Time Receive d Time (Source) Location / / Volume Laterality Pleural fluid 06/20/2014 1:30 PM 06/20/20 14 1:57 specimen EST PM EST (specimen) Comment: RIGHT PLEURAL EFFUSION - CT LV DED THORACENTESIS Resulting Agency Comment Spec In Lab Michele Eastman MD MICROBIOLOGY - GENERAL ORDER MARY Performing Organization Address City/State/[place] [address] [employer] Body fluid culture (06/20/2014 1:30 PM EST) Component Value Ref Test Analysis Performed At [facility] Range Method Time Signature Body Fluid CERNER Culture ? Patient Name: CYN MASTERSON ?Ordered By: MICHELE EASTMAN ? MR#: [id number] ?LOC: ??3ZC ? /Sex: ??1955 (59 years), ? Female ? PROCEDURE: Body Fluid Culture ?SOURCE: Pleural Fl ? COLLECTED: 06/20/2014 13:30 ?FREE TEXT SOURCE: RIGHT PLEURAL EFFUSION - CT GUIDE D ? STARTED: 06/20/2014 13:57 ? THORACENTESIS ? STAINS / PREPARATIONS ? Gram Stain Report ? Verified:06/20/2014 14:56 ? Cytocentrifuge Gram Stain performed ? White Blood Cells seen ? No microorganisms seen. ? FINAL REPORT ? Final Report ? Verified:06/24/2014 09:26 ? Coagulase negative Staphylococcus species isolated from broth culture. ? No growth on original plates. ? PRELIMINARY REPORT ? Preliminary Report ? Verified:06/22/2014 11:40 ? Coagulase negative Staphylococcus species isolated from broth culture. ? No growth on original plates. ? Specimen Anatomical Collection Method Collection Time Receive d Time (Source) Location / / Volume Laterality Pleural fluid 06/20/2014 1:30 PM 06/20/20 14 1:57 specimen EST PM EST (specimen) Comment: RIGHT PLEURAL EFFUSION - CT LV DED THORACENTESIS Resulting Agency Comment Spec In Lab Michele Eastman MD MICROBIOLOGY - GENERAL ORDER MARY Performing Organization Address City/State/ZIP [place] [address] CERNER MILLENNIUM Calcofluor White Stain (06/20/2014 1:30 PM EST) Component Value Ref Test Analysis Performed At [facility] gist Range Method Time Signature Calcofluor CERNER White Stain ? Patient Name: CYN MASTERSON ?Ordered By: MICHELE EASTMAN ? MR#: [id number] ?LOC: ??3ZC ? /Sex: ??1955 (59 years), ? Female ? PROCEDURE: Calcofluor White Stain ?SOURCE: Lung Asp ? COLLECTED: 06/20/2014 13:30 ?FREE TEXT SOURCE: RIGHT PLEURAL EFFUSION - CT GUIDE D ? STARTED: 06/20/2014 13:57 ? THORACENTESIS ? STAINS / PREPARATIONS ? Calcofluor Stain Report ? Verified:06/20/2014 16:01 ? Calcofluor White Preparation: Negative ? Specimen (Source) Anatomical Collection Method Collection Time Re ceived Time Location / / Volume Laterality Specimen from lung 06/20/2014 1:30 2013 1:57 obtained by fine PM EST PM EST needle aspiration procedure (specimen) Comment: RIGHT PLEURAL EFFUSION - CT LV DED THORACENTESIS Resulting Agency Comment Spec In Lab Michele Eastman MD MICROBIOLOGY - GENERAL ORDER MARY Performing Organization Address City/State/ZIP [place] [address] ARNAV BAKER Fungus culture (06/20/2014 1:30 PM EST) Component Value Ref Test Analysis Performed At [facility] Range Method Time Signature Fungus CERNER Culture ? Patient Name: CYN MASTERSON ?Ordered By: MICHELE EASTMAN ? MR#: [id number] ?LOC: ??3ZC ? /Sex: ??1955 (59 years), ? Female ? PROCEDURE: Fungus Culture ?SOURCE: Lung Asp ? COLLECTED: 06/20/2014 13:30 ?FREE TEXT SOURCE: RIGHT PLEURAL EFFUSION - CT GUIDE D ? STARTED: 06/20/2014 13:57 ? THORACENTESIS ? FINAL REPORT ? Final Report ? Verified:07/23/2014 09:15 ? No Fungus isolated ? PRELIMINARY REPORT ? Preliminary Report ? Verified:06/21/2014 08:08 ? No Fungus isolated to date ? Specimen (Source) Anatomical Collection Method Collection Time Re ceived Time Location / / Volume Laterality Specimen from lung 06/20/2014 1:30 2013 1:57 obtained by fine PM EST PM EST needle aspiration procedure (specimen) Comment: RIGHT PLEURAL EFFUSION - CT LV DED THORACENTESIS Resulting Agency Comment Spec In Lab Michele Eastman MD MICROBIOLOGY - GENERAL ORDER MARY Performing Organization Address City/State/ZIP [place] [address] [facility] Thoracentesis (06/20/2014 1:28 PM EST) Anatomical Region Laterality Modality Chest, Lung Computed Tomography Specimen (Source) Anatomical Collection Method Collection Time Re ceived Time Location / / Volume Laterality 06/20/2014 1:28 PM EST Impressions 06/26/2014 12:22 PM EST Impression: completely successful CT-guided aspiration of a right pleural effusion. Microbiology studies are pendi ng. Fellow: Dr. Juan Hanks Attending: Dr. Randy Johnson the procedure. Film and interpretation reviewed by the attending Narrative 06/26/2014 12:22 PM EST RADIOLOGY PROCEDURE NOTE Procedure: CT guided aspiration of right pleural effusion Acc#: [id number] Indication for Procedure: right pleural effusion Procedure events and findings: Technique: After obtaining informed cons ent the patient was positioned supine on the CT table. Following a time-out, t he right pleural fluid collection was localized with unenhanced axial CT image s. After sterile preparation of the overlying skin, 1% lidocaine SQ was admi nistered for local anesthesia. Under CT fluoroscopic guidance a 18G Ciba needle was advanced into the collection. After removing the stylet there was return of serous fluid. Approximately 450cc of serosanguinous fluid was aspirated and s ample sent for microbiology analysis. Post aspiration images demonstrated no c omplication. The patient tolerated the procedure well. Medications: Fentanyl 50 mcg IV, Versed 0 mg IV , 1% Lidocaine 10ml Antibiotic Prophylaxis: none Complications: None Procedure Note Samy Padilla MD - 06/26/2014Form atting of this note might be different from the original. RADIOLOGY PROCEDURE NOTE Procedure: CT guided aspiration of right pleural effusion Acc#: [id number] Indication for Procedure: right pleural effusion Procedure events and findings: Technique: After obtaining informed cons ent the patient was positioned supine on the CT table. Following a time-out, t he right pleural fluid collection was localized with unenhanced axial CT image s. After sterile preparation of the overlying skin, 1% lidocaine SQ was admi nistered for local anesthesia. Under CT fluoroscopic guidance a 18G Ciba needle was advanced into the collection. After removing the stylet there was return of serous fluid. Approximately 450cc of serosanguinous fluid was aspirated and s ample sent for microbiology analysis. Post aspiration images demonstrated no c omplication. The patient tolerated the procedure well. Medications: Fentanyl 50 mcg IV, Versed 0 mg IV , 1% Lidocaine 10ml Antibiotic Prophylaxis: none Complications: None IMPRESSION Impression: completely successful CT-lv ded aspiration of a right pleural effusion. Microbiology studies are pendi ng. Fellow: Dr. Juan Hanks Attending: Dr. Randy Johnson the procedure. Film and interpretation reviewed by the attending Michele Eastman MD IMG CT ORDERABLES documented in this encounter Visit Diagnoses Diagnosis Pleural effusion Unspecified pleural effusion documented in this encounter Administered Medications Inactive Administered Medications - up to 3 most recent administrations Medication Order MAR Action Action Date Dose Rate Site fentaNYL 50mcg/mL injection Given 06/20/2014 1:00 PM EST 50 mcg 25-50 mcg, Intravenous, EVERY 5 MIN PRN, Starting on Ericka 06/20/14 at 1134, Until Ericka 06/20/14 at 1313, Pain, per unit protocol, Angio/IR (Intra-Procedure), Routine sodium chloride 0.9 % flush 5 mL Given 06/20/2014 12:00 PM EST 5 mLs 5 mL, Intravenous, EVERY 12 HOURS, First dose on Ericka 06/20/14 at 1200, Until Discontinued, Day of Surgery (Day of Procedure), Routine documented in this encounter Care Teams Color Matcher Relationship Specialty Start Date End Date Sunitha Trotter MD PCP - General 07/07/10 02/18/16 [address] [place] [address] documented as of this encounter
--- OUTSIDE RECORDS SUMMARY | 2022-03-05 02:18 | XMS_ITS | Encounter Summary ---
:1955 Author Organization [facility] [place] [address] Care Team Providers Name Role Phone Alphonso Murphy MD Primary Care Provider [phone] Encounter Details Date Type Department Care Team Description 01/17/2017 Hospital Encounter [place] [address] Social History Tobacco Use Types Packs/Day [...] by Each Nare 0 11/1305/21/2019 50 mcg/actuation [place], route daily. Suspension furosemide (LASIX) 40 Take [...] 01/12/2017 01/21/2017 (ALDACTONE) 50 mg daily. Tablet documented as of this encounter Plan of Treatment Not on filedocumented as of this encounter Procedures Procedure Name Priority Date/Time Associated Diagnosis Comme nts REQUEST FOR 2ND Routine 01/17/2017 12:34 PM Resul ts for this READ CT CHEST EDT procedure are in the results section. documented in this encounter Results Request For 2nd Read CT Chest (01/17/2017 [...] chest with intravenous contrast was performed at [facility]. COMPARISON: CTA of the chest 02/19/16 FINDINGS: [...] chest with intravenous contrast was performed at [facility]. COMPARISON: CTA of the chest 02/19/16 FINDINGS: [...] Handy MD IMG OUTSIDE INTERPRETATION O RDERABLES documented in this encounter Visit Diagnoses Not on filedocumented in this encounter Care Teams Media Liaison Officer Relationship Specialty Start Date End Date Alphonso Murphy MD PCP - General Family Medicine 02/19/[address] [place] [address] documented as of this encounter
--- OUTSIDE RECORDS SUMMARY | 2022-03-05 02:19 | XMS_ITS | Encounter Summary ---
:1955 Author Organization [facility] [place] [address] Care Team Providers Name Role Phone Sunitha Milligan MD Primary Care Provider Reason for Visit Reason Comments URI Encounter Details Date Type Department Care Team Description 12/17/2013 Emergency Emergency Department Sue Michael, DEISY [facility] [place] [address] Acute URI [facility] Devin Groves MD [facility] [place] [address] [facility] [place] [address] Social History Tobacco Use Types Packs/Day Years Used Date Never Assessed Sex Assigned at Date Recorded Not on file documented as of this encounter Last Filed Vital Signs Vital Sign Reading Time Taken Comments Blood Pressure 140/76 12/17/2013 6:15 PM EDT Pulse 92 12/17/2013 6:15 PM EDT Temperature 36.7 ??C (98.1 ??F) 12/17/2013 6:15 PM EDT Respiratory Rate 20 12/17/2013 6:15 PM EDT Oxygen Saturation 98% 12/17/2013 6:15 PM EDT Inhaled Oxygen Concentration - - Weight - - Height - - Body Mass Index - - documented in this encounter Discharge Instructions Discharge InstructionsMarioarpanwilbertSue, DEISY - 12/17/2013 6:34 PM EDT Images from the original note were not included. [facility] Upper Respiratory Infection (Cold): After Your Child's Visit Your Care Instructions An upper respiratory infection, also called a URI, is an infection of the nose, sinuses, or throat. URIs are spread by coughs, sneezes, and direct contact. The common cold is the most frequent kind of URI. The flu and sinus infections are other kinds of URIs. Almost all URIs are caused by viruses, so antibiotics won't cure them. But you can do things at hometo help your child get better. With most URIs, your child should feel better in 4 to 10 days. The doctor has checked your child carefully, but problems can develop later. If you notice any problems or new symptoms, get medical treatment right away. Follow-up care is a hickman part of your child's treatment and safety. Be sure to make and go to all appointments, and call your doctor if your child is having problems. It's also a good idea to know your child's test results and keep a list of the medicines your child takes. How can you care for your child at home? ?? Give your child acetaminophen (Tylenol) or ibuprofen (Advil, Motrin) for fever, pain, or fussiness. Read and follow all instructions on the label. Do not give aspirin to anyone younger than 20. It has been linked to Hamilton syndrome, a serious illness. Do not give ibuprofen to a child who is younger than 6 months. ?? Be careful with cough and cold medicines. They may not be safe for young children, so check the label first. If you do give these medicines to a child, always follow the directions about how much togive based on the child's age and weight. ?? Be careful when giving your child wcrf-mod-feghfyl cold or flu medicines and Tylenol at the same time. Many of these medicines have acetaminophen, which is Tylenol. Read the labels to make sure thatyou are not giving your child more than the recommended dose. Too much acetaminophen (Tylenol) can be harmful. ?? Make sure your child rests. Keep your child at home if he or she has a fever. ?? If your child has problems breathing because of a stuffy nose, squirt a few saline (saltwater) nasal drops in one nostril. Then have your child blow his or her nose. Repeat for the other nostril. Donot do this more than 5 or 6 times a day[address] ?? Place a humidifier by your child's bed or close to your child. This may make it easier for your child to breathe. Follow the directions for cleaning the machine. ?? Keep your child away from smoke. Do not smoke or let anyone else smoke around your child or in your house. ?? Wash your hands and your child's hands regularly so that you don't spread the disease. ?? If the doctor prescribed antibiotics for your child, give them as directed. Do not stop using them just because your child feels better. Your child needs to take the full course of antibiotics. When should you call for help? Call 911 anytime you think your child may need emergency care. For example, call if: ?? Your child seems very sick or is hard to wake up. ?? Your child has severe trouble breathing. Call your doctor now or seek immediate medical care if: ?? Your child has new or worse trouble breathing. ?? Your child has a new or higher fever. ?? Your child seems to be getting much sicker. ?? Your child coughs up dark brown or bloody mucus (sputum). Watch closely for changes in your child's health, and be sure to contact your doctor if: ?? Your child has new symptoms, such as a rash, earache, or sore throat. ?? Your child does not get better as expected. Where can you learn more? Visit our health information library at [email or web address] You can also view health information on [email or web address], your personal patient account. Log in or sign up today. Enter M207 in the search box to learn more about Upper Respiratory Infection (Cold): After Your Child's Visit. ?? [id number] [employer]. Care instructions adapted under license by [facility]. This care instruction is for use with your licensed healthcare professional. If you have questionsabout a medical condition or this instruction, always ask your healthcare professional. [employer] disclaims any warranty or liability for your use of this information. Content Version: 9.9.510972; Last Revised: February 09, 2012 [facility] Upper Respiratory Infection (Cold): After Your Visit Your Care Instructions An upper respiratory infection, also called a URI, is an infection of the nose, sinuses, or throat. URIs are spread by coughs, sneezes, and direct contact. The common cold is the most frequent kind of URI. The flu and sinus infections are other kinds of URIs. Almost all URIs are caused by viruses, so antibiotics won't cure them. But you can treat most infections with home care. This may include drinking lots of fluids and taking nvrp-zgf-gmodzoy pain medicine. You will probably feel better in 4 to 10 days. The doctor has checked you carefully, but problems can develop later. If you notice any problems or new symptoms, get medical treatment right away. Follow-up care is a hickman part of your treatment and safety. Be sure to make and go to all appointments, and call your doctor if you are having problems. It's also a good idea to know your test results and keep a list of the medicines you take. How can you care for yourself at home? ?? To prevent dehydration, drink plenty of fluids, enough so that your urine is light yellow or clear like water. Choose water and other caffeine-free clear liquids until you feel better. If you have kidney, heart, or liver disease and have to limit fluids, talk with your doctor before you increase the amount of fluids you drink. ?? Take an ddya-xjj-ybwlahb pain medicine, such as acetaminophen (Tylenol), ibuprofen (Advil, Motrin), or naproxen (Aleve). Read and follow all instructions on the label. ?? If your doctor prescribed antibiotics, take them as directed. Do not stop taking them just because you feel better. You need to take the full course of antibiotics. ?? Before you use cough and cold medicines, check the label. These medicines may not be safe for young children or for people with certain health problems. ?? Be careful when taking ckpe-nvz-ykxcynu cold or flu medicines and Tylenol at the same time. Many of these medicines have acetaminophen, which is Tylenol. Read the labels to make sure that you are not taking more than the recommended dose. Too much acetaminophen (Tylenol) can be harmful. ?? Get plenty of rest. ?? Do not smoke or allow others to smoke around you. If you need help quitting, talk to your doctor about stop-smoking programs and medicines. These can increase your chances of quitting for good. When should you call for help? Call 911 anytime you think you may need emergency care. For example, call if: ?? You have severe trouble breathing. Call your doctor now or seek immediate medical care if: ?? You seem to be getting much sicker. ?? You have new or worse trouble breathing. ?? You have a new or higher fever. ?? You have a new rash. Watch closely for changes in your health, and be sure to contact your doctor if: ?? You have a new symptom, such as a sore throat, an earache, or sinus pain. ?? You cough more deeply or more often, especially if you notice more mucus or a change in the colorof your mucus. ?? You do not get better as expected. Where can you learn more? Visit our health information library at http://[email or web address] You can also view health information on [email or web address], your personal patient account. Log in or sign up today. Enter K520 in the search box to learn more about Upper Respiratory Infection (Cold): After Your Visit. ?? [id number] [employer], [employer]. Care instructions adapted under license by [facility]. This care instruction is for use with your licensed healthcare professional. If you have questionsabout a medical condition or this instruction, always ask your healthcare professional. [employer] disclaims any warranty or liability for your use of this information. Content Version: 9.9.228240; Last Revised: December 06, 2011 documented in this encounter Medications at Time of Discharge Medication Sig Dispensed Refills Start Date End Date gabapentin (NEURONTIN) 800 800 MG = 1 0 01/12/201 1 01/16/2017 mg tablet Tablet(s), PO, Q8H [...] Twice daily documented as of this encounter ED Notes Sue Anguiano, [employer] SET UP OPERATOR - 12/17/2013 6:35 PM EDT S. 58 yo woman here with one day history of cough, runny nose, headache, feeling tired. She is staying with her disabled son while he is a patient on [facility]. No fever or stiff neck. No SOB or dyspnea. Stopped smoking 3 years ago. Son has shunt malfunction with pneumonia. They are from [facility]. She is hoping he will be discharged on . She sleeps in his hospital room to help care for him. Had flu shot. PMH, Medications, Allergies and SH reviewed with patient O. VS and nurses notes reviewed. Pt awake, alert, oriented x3, skin warm, dry, color pink in NAD HEENT NC/AT OM moist, OP pink without exudate, erythema or edema. Neck supple, no LA Lungs CTAB with few scattered wheezes Heart rrr Extremities without edema, clubbing or cyanosis A. URI P. Symptomatic care, rest, fluids, tylenol, decongestants, FU for any SOB, high fever or other concerns. Sue Anguiano APRN 12/17/13 1839 documented in this encounter Miscellaneous Notes Miscellaneous - Smiley Kapadia - 12/17/2013 9:50 PM EDT ED Triage - Blessing Justin RN - 12/17/2013 6:17 PM EDT Pt presents to ED with c/o cough and nasal congestion which started yesterday. Denies fevers, Afebrile in triage. Also c/o FINN. Productive cough observed, Pt masked in triage. Lung sounds coarse B/L lower lobes. Pt c/o pain in L arm when she coughs. Denies CP. Skin w/p/d, in NAD. documented in this encounter Plan of Treatment Not on filedocumented as of this encounter Visit Diagnoses Diagnosis Acute URI Acute upper respiratory infections of un specified site documented in this encounter Active and Recently Administered Medications Care Teams Food Preparation Kitchen Aide Relationship Specialty Start Date End Date Sunitha Milligan MD PCP - General 07/07/10 02/18/16 [address] [place] [address] documented as of this encounter
--- OUTSIDE RECORDS SUMMARY | 2022-03-05 02:19 | XMS_ITS | Encounter Summary ---
:1955 Author Organization [place] [address] Care Team Providers Name Role Phone Sunitha Trotter MD Primary Care Provider Encounter Details Date Type Department Care Team Description 03/24/2014 Orders Only Radiology at [facility] [place] Juan Hanks Pleural effusion on [facility] MD fontenot (Primary Dx) [place] [address] RADIOLOGY DEPT. [place] [id number] Social History Tobacco Use Types Packs/Day Years Used Date Never Assessed Sex Assigned at Date Recorded Not on file documented as of this encounter Progress Notes Juan Hanks MD - 03/24/2014 11:46 AM EDT VASCULAR AND INTERVENTIONAL RADIOLOGY FOCUSED H&P and PRE-PROCEDURE NOTE: PCP: SUNITHA TROTTER MD Referring Physician: No ref. provider found Planned Procedure: US-guided right pleural drain placement Procedure Indication: Tachypnea with new right pleural fluid on CT and recent fall Presenting Diagnosis/ Complaint: Radha Masterson is a 58 y.o. female with tachypnea with new right pleural fluid (suspected blood) on OSH CT (03/22/14) and recent fall. Attempted pleural drain placement at [facility] but unsuccessful due to body habitus Request from [facility] hospitalist for right pleural drain. Past Medical/Surgical History: Patient Active Problem List [...] to Visit Medication Sig Dispense Refill ??? gabapentin (NEURONTIN) 800 mg tablet 800 [...] MG = 1 Tablet(s), PO, Twice daily Allergies: Iodinated contrast media - iv dye and Iodine-iodine containing Social History and Habits: History Social History ??? Marital Status: Single Spouse Name: N/A Number of Children: N/A ??? Years of Education: N/A Occupational History ??? Not on file. Social History Main Topics ??? Smoking status: Not on file ??? Smokeless tobacco: Not on file ??? Alcohol Use: Not on file ??? Drug Use: Not on file ??? Sexually Active: Not on file Other Topics Concern ??? Not on file Social History Narrative ??? No narrative on file Significant Family History: No family history on file. Pertinent ROS: as per HPI Labs: Lab Results Component Value Date WBC 7.2 12/18/2013 HCT 42.2 12/18/2013 PLATELET 261 12/18/2013 BUN 17 12/18/2013 CREATININE 0.66* 12/18/2013 Imagin03/22/14 [facility] CT Physical Exam: Pending (to be performed in angio the day of procedure) ASA: Pending (to be assessed in angio the day of procedure) Mallampati Class: Pending (to be assessed in angio the day of procedure) Assessment: 58 y.o. female recent fall presented to [facility] with tachypnea with new right pleural fluid (suspected blood) on OSH CT (03/22/14) . Attempted pleural drain placement at [facility] but unsuccessful due to body habitus Plan: US-guided right pleural drain then transport back to [facility] Labs to be performed day of procedure: none Medication to STOP: none Sedation: Moderate sedation per IR RN protocols Prophylactic antibiotic: none Additional medications for procedure: none Planned access site: right thorax Position: left side down Consent: Pending - Juan Hanks MD (Pager #[phone]) 03/24/2014 documented in this encounter Plan of Treatment Not on filedocumented as of this encounter Visit Diagnoses Diagnosis Pleural effusion on right - Primary Unspecified pleural effusion documented in this encounter Care Teams Body Shop Floorperson Relationship Specialty Start Date End Date Sunitha Trotter MD PCP - General 07/07/10 02/18/16 [address] [place] [address] documented as of this encounter
--- OUTSIDE RECORDS SUMMARY | 2022-03-05 02:19 | XMS_ITS | Encounter Summary ---
:1955 Author Organization [facility] [place] [address] Care Team Providers Name Role Phone Sunitha Trotter MD Primary Care Provider Encounter Details Date Type Department Care Team Description 03/24/2014 Hospital Encounter Radiology [place] [facility] [place] [facility] Brandan Kelly MD [facility] [place] [address] [place] [address] Social History Tobacco Use Types Packs/Day Years Used Date Never Assessed Sex Assigned at Date Recorded Not on file documented as of this encounter Last Filed Vital Signs Vital Sign Reading Time Taken Comments Blood Pressure - - Pulse 82 03/24/2014 1:00 PM EDT Temperature 36.6 ??C (97.9 ??F) 03/24/2014 1:00 PM EDT Respiratory Rate 22 03/24/2014 1:00 PM EDT Oxygen Saturation 94% 03/24/2014 1:00 PM EDT Inhaled Oxygen Concentration - - Weight - - Height - - Body Mass Index - - documented in this encounter Medications at Time of Discharge Medication Sig Dispensed Refills Start Date End Date potassium chloride 0 12/21/2013 06/04/ 2017 (MICRO-K) 10 mEq Capsule, Sustained Release gabapentin (NEURONTIN) 800 800 MG = 1 [...] documented as of this encounter Progress Notes Delmis Rios RN - 03/24/2014 1:20 PM EDT [facility] NURSING DATABASE Name: CYN MASTERSON Date of : 1955 AGE 58 y.o. Address: [address] [address] (home) Mobile: No relevant phone numbers on file. Referring Provider: Brandan Kelly Reason for Visit: Assessment: 58 y.o. female recent fall presented to [facility] with tachypnea with new right pleural fluid (suspected blood) on OSH CT (03/22/14) . Attempted pleural drain placement at [facility] but unsuccessful due to body habitus Plan: US-guided right pleural drain then transport back to [facility] (Assessment/plan from provider's note, bottom of page) Copy/paste from provider's note (CT) Allergies Allergen Reactions ??? Iodinated Contrast Media [...] Comments: 03/24/14 Right Chest Tube fent 250mcg Laboratory Results: No results found for this basename: inr No results found for this basename: PT, PTT Lab Results Component Value Date BUN 17 12/18/2013 Lab Results Component Value Date CREATININE 0.66* 12/18/2013 Lab Results Component Value Date K 3.9 12/18/2013 Lab Results Component Value Date PLATELET 261 12/18/2013 Medications: Prior to Admission medications Medication Sig Start Date End Date Taking? Authorizing Provider gabapentin (NEURONTIN) 800 mg tablet 800 MG [...] informed this patient that they require a wood pile driver operator to drive them home after this procedure. In the absence of a wood pile driver operator, IR will not be able to perform this procedure andwill need to reschedule. Pt verbalized understanding of these instructions during the pre-procedure e ducation via phone. (initials) Pt has informed caller that blood thinner was stopped on per order. Juan Hanks MD - 03/24/2014 12:57 PM EDT Vascular and Interventional Radiology PRE-SEDATION ASSESSMENT / FOCUSED H&P Procedure: RIght pleural drain placement The patient's history and physical exam have [...] for this patient???s case and concur that Fentanl is appropriate for sedation and will be provided per the protocoled order set for this case Physical Examination: Chest: clear to auscultation, no wheezes, rales or rhonchi, symmetric air entry Heart: normal rate and regular rhythm Abdomen: not examined ASA Classification: ASA 3 - Patient with moderate systemic disease with functional limitations Mallampati Classification: III (soft palate, base of uvula visible)?? - Juan Hanks MD (Pager #[phone]) 03/24/2014 VASCULAR AND INTERVENTIONAL RADIOLOGY FOCUSED H&P and PRE-PROCEDURE NOTE: PCP: SUNITHA TROTTER MD Referring Physician: Brandan Kelly Planned Procedure: US-guided right pleural drain placement Procedure Indication: Tachypnea with new right pleural fluid on CT and recent fall Presenting Diagnosis/ Complaint: Cyn Masterson is a 58 y.o. female with tachypnea with new right pleural fluid (suspected blood) on OSH CT (03/22/14) and recent fall. Attempted pleural drain placement at [facility] but unsuccessful due to body habitus Request from [facility] hospitalist for right pleural drain. Past Medical/Surgical [...] to Encounter Medication Sig Dispense Refill ??? gabapentin (NEURONTIN) [...] BUN 17 12/18/2013 CREATININE 0.66* 12/18/2013 Imagin03/22/[address] [facility] [address] Physical Exam: Pending (to be performed in angio the day of procedure) ASA: Pending (to be assessed in angio the day of procedure) Mallampati Class: Pending (to be assessed in angio the day of procedure) Assessment: 58 y.o. female recent fall presented to OSH [facility] with tachypnea with new right pleural fluid (suspected blood) on OSH CT (03/22/14) . Attempted pleural drain placement at [facility] but unsuccessful due to body habitus Plan: US-guided right pleural drain then transport back to [facility] Labs to be performed day of procedure: none Medication to STOP: none Sedation: Moderate sedation per IR RN protocols Prophylactic antibiotic: none Additional medications for procedure: none Planned access site: right thorax Position: left side down Consent: Pending - Juan Hanks MD (Pager #[phone]) 03/24/2014 documented in this encounter Procedure Notes Brandan Kelly MD - 03/24/2014 1:28 PM EDT VIR PROCEDURE NOTE Procedure: U/S guided right chest tube placement. ACC#: [id number] Indication for Procedure: Cyn Masterson is a 58 y.o. female with tachypnea with new right pleural fluid (suspected blood) on OSH CT (03/22/14) and recent fall. Attempted pleural drain placement at [facility] but unsuccessful due to body habitus. Procedure events and findings: After obtaining informed consent, pt was positioned sitting on a stretcher. U/S showed right pleural fluid. Sterile prep and drape performed, maximum sterile barrier technique was used throughout. Due to the painful nature of the procedure, patient received split doses of intravenous fentanyl from the IR nurse while pulse, pressure, and oxygen saturation were continuously monitored. Access obtained in posterior right chest with U/S guidance with an 19ga Yueh needle directed into the pleural space. Guide wire placed. The access was dilated over the guide wire and a 10Fr locking pigtail catheter was placed. Catheter position was confirmed with U/S. Catheter was anchored with suture and capped for transport back to [facility]. Medications: Fentanyl 250mcg IV, 1% Lidocaine <10ccs subcutaneous. Est Blood Loss: <5cc. Complications: No immediate. Impression: 1. U/S guided right chest tube placement, 10Fr. 2. Catheter currently capped for the transport back to [facility]. Can be connected to suction drainage once pt back at [facility]. Resident/Fellow: Latonya. Attending: Dr. Leticia Johnson was present throughout this procedure. documented in this encounter Miscellaneous Notes Miscellaneous - Provider, Smiley - 03/29/2014 9:08 AM EDT documented in this encounter Plan of Treatment Not on filedocumented as of this encounter Procedures Procedure Name Priority Date/Time Associated Diagnosis Comme nts IR CHEST TUBE Routine 03/24/2014 1:28 PM Results for this PLACEMENT EDT procedure are i n the results section. documented in this encounter Results IR chest drainage procedure (03/24/2014 1:28 PM EDT) Anatomical Region Laterality Modality Chest X-Ray Angiography Specimen (Source) Anatomical Collection Method Collection Time Re ceived Time Location / / Volume Laterality 03/24/2014 1:28 PM EDT Narrative 03/25/2014 3:44 PM EDT ? ; ? VIR PROCEDURE NOTE ?Procedure: ?? U/S guided right chest tube placement. ?ACC#: [id number] ? Indication ?? for Procedure: Cyn Masterson is a 58 y.o. female with tachypnea with new right pleural fluid ?? (suspected blood) on OSH CT (03/22/14) and recent fal l. Attempted pleural drain ?? placement at [facility] but unsuccessful due to body ?? habitus. ?Procedure ?? events and findings: After obtaining informed conse nt, pt was positioned sitting on a stretcher. U/S showed ?? right pleural f luid. Sterile prep and drape performed, maximum sterile ?? barrier technique was used throughout. Due to the painful nature of the ?? procedure, patient rece ived split doses of intravenous fentanyl from the IR nurse while pulse, pressure, and oxygen saturation ?? were continuously monitored. Access obtained in posterior right chest with ?? U/S guidance with an 19ga Yueh ?? needle dir ected into the pleural space. Guide wire placed. ?The ?? access was dilated o thania the guide wire and a 10Fr locking pigtail catheter ?? was placed. Catheter position was confirmed with U/S. Catheter was anchored ?? with suture and capped for transport back to [facility]. ? Medications: ?? Fentanyl 250mcg IV, 1% L idocaine <10ccs subcutaneous. ?Est ?? Blood Loss: <5cc. ?Complications: ?? No immediate. ?Impression: ?1. ?? U/S guided right chest tube placement, 1 0Fr. ?2. ?? Catheter currently capped for the transport back to [facility]. ?? Can b e connected to suction drainage once pt back ?? at [facility]. ?Resident/Fellow: ? ? Percarpio. ?Attending: ?? I, Dr. Kelly was present throughout this ?? procedure . ?; ?? {CR} ? Film and interpretation reviewed by the attending Procedure Note Brandan Kelly MD - 03/25/2014Formattin g of this note might be different from the original. ; VIR PROCEDURE NOTE Procedure: U/S lv ded right chest tube placement. ACC#: [id number] Indication for Procedure: Cyn Masterson is a 58 y.o. female with tachypnea with new right pleural fluid (suspected blood) on OSH CT (03/22/14) and recent fal l. Attempted pleural drain placement at [facility] but unsuccessful due to body hab itus. Procedure events and findings: After obtaining informed conse nt, pt was positioned sitting on a stretcher. U/S showed right pleural flui d. Sterile prep and drape performed, maximum sterile barrier technique was us ed throughout. Due to the painful nature of the procedure, patient receive d split doses of intravenous fentanyl from the IR nurse while pulse, pressure, and oxygen saturation were continuously monitored. Access obtained in posterior right chest with U/S guidance with an 19ga Yueh needle direct ed into the pleural space. Guide wire placed. The access was dilated over the guide wire and a 10Fr locking pigtail catheter was placed. Catheter po sition was confirmed with U/S. Catheter was anchored with suture and ca pped for transport back to [facility]. Medications: Fentanyl 250mcg IV, 1% Lido leo <10ccs subcutaneous. Est Blood Loss: <5cc. Complications: No imme diate. Impression: 1. U/S guided right chest tube placement, 1 0Fr. 2. Catheter currently capped for the transport back to [facility]. Can be c onnected to suction drainage once pt back at [facility]. Resident/Fellow: Latonya . Attending: Dr. Leticia Johnson was present throughout this procedure. ; {CR} Film and interpretation reviewed by the attending Brandan Kelly MD IMG IR ORDERABLES documented in this encounter Visit Diagnoses Not on filedocumented in this encounter Administered Medications Inactive Administered Medications - up to 3 most recent administrations Medication Order MAR Action Action Date Dose Rate Site fentaNYL (PF) 50 mcg/mL injection 1 dose, Starting on 03/24/14 at 1300, Until Sun 03/15 at 1315, DELMISMONIQUE RIOS: cabinet override fentaNYL 50mcg/mL injection Given 03/24/2014 1:15 PM EDT 250 mcg 25-50 mcg, Intravenous, EVERY 5 MIN PRN, Starting on 03/24/14 at 1320, Until 03/24/14 at 1327, Pain, per unit protocol, Angio/IR (Intra-Procedure), Routine lidocaine (XYLOCAINE) 10 mg/mL (1 %) injection Given 0 03/24/2014 1:45 PM EDT 10 mg 10 mg 10 mg, Subcutaneous, ONCE, 1 dose, On 03/24/14 at 1345, Intra-Operative (Intra-Procedure), Routine sodium chloride 0.9 % flush 5 mL Given 03/24/2014 1:45 PM EDT 5 mLs 5 mL, Intravenous, EVERY 12 HOURS, First dose on 03/24/14 at 1345, Until Discontinued, Day of Surgery (Day of Procedure), Routine documented in this encounter Care Teams Assemblyman Or Woman Relationship Specialty Start Date End Date Sunitha Trotter MD PCP - General 07/07/10 02/18/16 [address] [place] [address] documented as of this encounter
--- OUTSIDE RECORDS SUMMARY | 2022-03-05 02:19 | XMS_ITS | Encounter Summary ---
:1955 Author Organization [facility] Address [facility] [place] [address] Care Team Providers Name Role Phone Sunitha Milligan MD Primary Care Provider Reason for Visit Reason Onset Date Comments Blood Infection 12/14/2011 Encounter Details Date Type Department Care Team Description 12/14/2011 Telephone Orthopaedics at [facility] Terry Doss MD Blood Infection [facility] [place] [address] [address] [phone] [place], [place] [address] (Wo rk) Social History Tobacco Use Types Packs/Day Years Used Date Never Assessed Sex Assigned at Date Recorded Not on file documented as of this encounter Miscellaneous Notes Telephone Encounter - Delmis Easley RN - 12/14/2011 12:50 PM EDT Radha called she went to the ER at [facility] last evening with a cough, SOB a new diagnosis of asthma exacerbation with bronchitis, bronchopneumonia. Preliminary Blood cultures show escherichia coli. She has been called today to return to the hospital for admission. She wanted Dr Doss to be made aware as she is concerned regarding her prosthetic knee. Lab results will be scanned. Chief Complaint: S/P Left TKA revision SURGERY DATE: 03/16/2007 Terry Doss M.D. 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 Procedures Performed: 1. Removal of antibiotic cement spacer. 2. Complete synovectomy of the left knee. 3. Revision, left total knee arthroplasty with placement of a distal femoral replacement and a rotating hinge, total knee. 4. Repair of partial quadriceps tear. Implants: All implants are from the [employer] distal femoral replacement system. 1. Size 12 mm x 127 mm cemented femoral stem with a small distal femoral replacement with a porous roof distally. 2. Size S1 tibial tray with a 10-mm augment as well as a 12 mm x 80 mm cemented stem. 3. A 13-mm articulating polyethylene, which is locked in the tibial tray. 4. Standard rotating hinged parts including the polyethylene bushings, upper and distal femoral pin. documented in this encounter Plan of Treatment Not on filedocumented as of this encounter Visit Diagnoses Not on filedocumented in this encounter Care Teams Repair Specialist Relationship Specialty Start Date End Date Sunitha Milligan MD PCP - General 07/07/10 02/18/[address] [place] [address] documented as of this encounter
--- OUTSIDE RECORDS SUMMARY | 2022-03-05 02:19 | XMS_ITS | Encounter Summary ---
:1955 Author Organization [facility] [place] [address] Care Team Providers Name Role Phone Sunitha Milligan MD Primary Care Provider Encounter Details Date Type Department Care Team Description 04/30/[address] Scan at [facility], DR VICTOR [facility] Mariam Espino MD [facility] [place] [address] [place] [address] Social History Tobacco Use Types Packs/Day Years Used Date Never Assessed Sex Assigned at Date Recorded Not on file documented as of this encounter Medications at Time of Discharge Medication Sig Dispensed Refills Start Date End Date potassium chloride 0 12/21/20132016 (MICRO-K) 10 mEq [...] Diagnosis Comme nts CT CHEST PULMONARY Routine 04/30/2014 4:53 PM Re sults for this EMBOLISM W CONTRAST EDT procedur e are in the results section. documented in this encounter Results CT chest pulmonary embolism with contrast (04/30/2014 4:53 PM EDT) Anatomical Region Laterality Modality Chest Computed Tomography Specimen (Source) Anatomical Collection Method Collection Time Re ceived Time Location / / Volume Laterality 04/30/2014 4:53 PM EDT Narrative 04/30/2014 5:[address] Chest for Pulmonary Embolus With Cont rast Clinical History dyspnea Hemorrhagic plural effusion ?? Comparison CT scan chest 03/22/2014. Technique CTA of the chest with contrast. ??95 mL Omnipaque 350. ??Thin axial, sagittal and coronal maximal intensity projections we re generated. Findings Evaluation of the pulmonary arteries is somewhat limited secondary to timing of the contrast bullous and patient body ca bitus however, no large central pulmonary artery filling defects are cong ntified. Small segmental and subsegmental pulmonary emboli cannot be completely excluded. The right ventricle and intraventricular septum ar e normal in appearance. ??No pericardial effusion. Again seen is a large right effusion wit h associated compressive atelectasis. This is unchanged to slightly improved i n comparison with the prior CT scan. Small 8 mm ill-defined nodular opacity i n the right middle lobe (series 4, image 42) is indeterminate. The left gela g remains clear. ??No focal consolidations. ??Large heterogeneous ca lcified thyroid nodularity, left greater than right is grossly unchanged. ??No me diastinal, hilar or axillary lymphadenopathy. Limited evaluation of the upper abdomina l organs are unchanged. Degenerative changes of the thoracic spi ne without suspicious osseous lesions. Impression 1. Limited evaluation of the pulmonary a rteries however no large central pulmonary embolism is identified. 2. Large right pleural effusion is stabl e to slightly improved in comparison with the prior CT scan. 3. Small ill-defined nodular opacity in the right middle lobe is indeterminate. ?? Attention on follow up; consider CT foll ow up in 3 months. Film and interpretation reviewed by the attending Procedure Note Tosha Covarrubias MD - 04/30/2014Formatt ing of this note might be different from the original. Examination CT Chest for Pulmonary Embolus With Cont rast Clinical History dyspnea Hemorrhagic plural effusion Comparison CT scan chest 03/22/2014. Technique CTA of the chest with contrast. 95 mL Om nipaque 350. Thin axial, sagittal and coronal maximal intensity projections we re generated. Findings Evaluation of the pulmonary arteries is somewhat limited secondary to timing of the contrast bullous and patient body ca bitus however, no large central pulmonary artery filling defects are cong ntified. Small segmental and subsegmental pulmonary emboli cannot be completely excluded. The right ventricle and intraventricular septum ar e normal in appearance. No pericardial effusion. Again seen is a large right effusion wit h associated compressive atelectasis. This is unchanged to slightly improved i n comparison with the prior CT scan. Small 8 mm ill-defined nodular opacity i n the right middle lobe (series 4, image 42) is indeterminate. The left gela g remains clear. No focal consolidations. Large heterogeneous calc ified thyroid nodularity, left greater than right is grossly unchanged. No medi astinal, hilar or axillary lymphadenopathy. Limited evaluation of the upper abdomina l organs are unchanged. Degenerative changes of the thoracic spi ne without suspicious osseous lesions. Impression 1. Limited evaluation of the pulmonary a rteries however no large central pulmonary embolism is identified. 2. Large right pleural effusion is stabl e to slightly improved in comparison with the prior CT scan. 3. Small ill-defined nodular opacity in the right middle lobe is indeterminate. Attention on follow up; consider CT foll ow up in 3 months. Film and interpretation reviewed by the attending Sunitha Milligan MD IMG CT ORDERABLES documented in this encounter Visit Diagnoses Not on filedocumented in this encounter Administered Medications Inactive Administered Medications - up to 3 most recent administrations Medication Order MAR Action Action Date Dose Rate Site iohexol (OMNIPAQUE) 350 mg Given 04/30/2014 4:28 PM EDT 33,250 m g iodine/mL injection 33,250 mg 33,250 mg (95 mL), Intravenous, ONCE PRN, 1 dose, Starting on Tue04/30/14 at 1626, Until Tue04/30/14 at 1628, Per Protocol, Routine documented in this encounter Care Teams Table Cut Off Saw Operator Relationship Specialty Start Date End Date Sunitha Milligan MD PCP - General 07/07/10 02/18/16 [address] [place] [address] documented as of this encounter
--- OUTSIDE RECORDS SUMMARY | 2022-03-05 02:19 | XMS_ITS | Encounter Summary ---
:1955 Author Organization [facility] [place] [address] Care Team Providers Name Role Phone Sunitha Milligan MD Primary Care Provider Encounter Details Date Type Department Care Team Description 08/26/2010 Procedure visit [place] [address] Social History Tobacco Use Types Packs/Day Years Used Date Never Assessed Sex Assigned at Date Recorded Not on file documented as of this encounter Plan of Treatment Not on filedocumented as of this encounter Visit Diagnoses Not on filedocumented in this encounter Care Teams Director Of Orthopedics Relationship Specialty Start Date End Date Sunitha Milligan MD PCP - General 07/07/10 02/18/16 [address] [place], [place] [address] documented as of this encounter
--- OUTSIDE RECORDS SUMMARY | 2022-03-05 02:19 | XMS_ITS | Encounter Summary ---
:1955 Author Organization [facility] [place] [address] Care Team Providers Name Role Phone Sunitha Milligan MD Primary Care Provider Encounter Details Date Type Department Care Team Description 02/22/2013 Orders Only Orthopaedics at [facility] Terry Doss, H/O total knee [facility] Ron coyle MD replacement ([place] [address] [address]) [phone] [place] [address] Social History Tobacco Use Types Packs/Day Years Used Date Never Assessed Sex Assigned at Date Recorded Not on file documented as of this encounter Plan of Treatment Not on filedocumented as of this encounter Visit Diagnoses Diagnosis H/O total knee replacement - Primary Knee joint replacement by other means documented in this encounter Care Teams Informatics Specialist Relationship Specialty Start Date End Date Sunitha Milligan MD PCP - General 07/07/10 [address] [place] [id number] documented as of this encounter
--- OUTSIDE RECORDS SUMMARY | 2022-03-05 02:19 | XMS_ITS | Encounter Summary ---
:1955 Author Organization [facility] [place] [address] Care Team Providers Name Role Phone Sunitha Milligan MD Primary Care Provider Encounter Details Date Type Department Care Team Description 08/26/2010 Office Visit Orthopaedics at [facility] Raffi Cordova PA [facility] [place] [address] ORTHOPAEDIC SURGERY [phone] [place], [place] [address] (Wo rk) Social History Tobacco Use Types Packs/Day Years Used Date Never Assessed Sex Assigned at Date Recorded Not on file documented as of this encounter Plan of Treatment Not on filedocumented as of this encounter Visit Diagnoses Not on filedocumented in this encounter Care Teams O And M Supervisor Relationship Specialty Start Date End Date Sunitha Milligan MD PCP - General 07/07/10 02/18/16 [address] [place], [place] [address] documented as of this encounter
--- OUTSIDE RECORDS SUMMARY | 2022-03-05 02:19 | XMS_ITS | Encounter Summary ---
:1955 Author Organization [facility] [place] [address] Care Team Providers Name Role Phone Sunitha Milligan MD Primary Care Provider Reason for Visit Reason Comments Chest Pain Encounter Details Date Type Department Care Team Description 12/18/2013 Emergency Emergency Department Libby Mistry A cute exacerbation of Margy Barber MD [facility] [address] [facility] [place] [address] [place] [address] [phone] Social History Tobacco Use Types Packs/Day Years Used Date Never Assessed Sex Assigned at Date Recorded Not on file documented as of this encounter Last Filed Vital Signs Vital Sign Reading Time Taken Comments Blood Pressure 147/85 12/18/2013 4:58 PM EDT Pulse 88 12/18/2013 4:58 PM EDT Temperature 36.8 ??C (98.2 ??F) 12/18/2013 4:58 PM EDT Respiratory Rate 24 12/18/2013 4:58 PM EDT Oxygen Saturation 97% 12/18/2013 4:58 PM EDT Inhaled Oxygen Concentration - - Weight 180.5 kg (398 lb) 12/18/2013 1:20 PM EDT Height - - Body Mass Index - - documented in this encounter Discharge Instructions Discharge InstructionsPratik Maynard MD - 12/18/2013 4:20 PM EDT Images from the original note were not included. Please complete the course of prednisone and azithromycin. Continue to use albuterol as needed. Please return to the emergency department for worsening shortness of breath, increased wheezing, chest pain, fevers, chills, or for any new and concerning symptoms. [facility] Chronic Obstructive Pulmonary Disease (COPD): After Your Visit Your Care Instructions Chronic obstructive pulmonary disease (COPD) is a general term for a group of lung diseases, including emphysema and chronic bronchitis. People with COPD have decreased airflow in and out of the lungs,which makes it hard to breathe. The airways also can get clogged with thick mucus. Cigarette smokingis a major cause of COPD. Although there is no cure for COPD, you can slow its progress. Following your treatment plan and taking care of yourself can help you feel better and live longer. Follow-up care is a hickman part of your treatment and safety. Be sure to make and go to all appointments, and call your doctor if you are having problems. It???s also a good idea to know your test resultsand keep a list of the medicines you take. How can you care for yourself at home? Staying healthy ?? Do not smoke. This is the most important step you can take to prevent more damage to your lungs. If you need help quitting, talk to your doctor about stop- smoking programs and medicines. These can increase your chances of quitting for good. ?? Avoid colds and flu. Get a pneumococcal vaccine shot. If you have had one before, ask your doctorwhether you need a second dose. Get the flu vaccine every fall. If you must be around people with colds or the flu, wash your hands often. ?? Avoid secondhand smoke, air pollution, and high altitudes. Also avoid cold, dry air and hot, humid air. Stay at home with your windows closed when air pollution is bad. Medicines and oxygen therapy ?? Take your medicines exactly as prescribed. Call your doctor if you think you are having a problemwith your medicine. ?? You may be taking medicines such as: ?? Bronchodilators. These help open your airways and make breathing easier. Bronchodilators are either short-acting (work for 6 to 9 hours) or long-acting (work for 24 hours). You inhale most bronchodilators, so they start to act quickly. Always carry your quick-relief inhaler with you in case you need it while you are away from home. ?? Corticosteroids (prednisone, budesonide). These reduce airway inflammation. They come in pill or inhaled form. You must take these medicines every day for them to work well. ?? A spacer may help you get more inhaled medicine to your lungs. Ask your doctor or pharmacist if aspacer is right for you. If it is, ask how to use it properly. ?? Do not take any vitamins, bhkm-kmv-uxtolga medicine, or herbal products without talking to your doctor first. ?? If your doctor prescribed antibiotics, take them as directed. Do not stop taking them just because you feel better. You need to take the full course of antibiotics. ?? Oxygen therapy boosts the amount of oxygen in your blood and helps you breathe easier. Use the flow rate your doctor has recommended, and do not change it without talking to your doctor first. Activity ?? Get regular exercise. Walking is an easy way to get exercise. Start out slowly, and walk a littlemore each day. ?? Pay attention to your breathing. You are exercising too hard if you cannot talk while you are exercising. ?? Take short rest breaks when doing window framer and other activities. ?? Learn breathing methods--such as breathing through pursed lips--to help you become less short of breath. ?? If your doctor has not set you up with a pulmonary rehabilitation program, talk to him or her about whether rehab is right for you. Rehab includes exercise programs, education about your disease andhow to manage it, help with diet and other changes, and emotional support. Diet ?? Eat regular, healthy meals. Use bronchodilators about 1 hour before you eat to make it easier to eat. Eat several small meals instead of three large ones. Drink beverages at the end of the meal. Avoid foods that are hard to chew. ?? Eat foods that contain fat and protein so that you do not lose weight and muscle mass. These foods include ice cream, pudding, cheese, eggs, and peanut butter. ?? Use less salt. Too much salt can cause you to retain fluids, which makes it harder to breathe. Donot add salt while you are cooking or at the table. Eat fewer processed foods and foods from restaurants, including fast foods. Use fresh or frozen foods instead of canned foods. Mental health ?? Talk to your family, friends, or a therapist about your feelings. It is normal to feel frightened, angry, hopeless, helpless, and even guilty. Talking openly about bad feelings can help you cope. Ifthese feelings last, talk to your doctor. When should you call for help? Call 911 anytime you think you may need emergency care. For example, call if: ?? You have severe trouble breathing. Call your doctor now or seek immediate medical care if: ?? You have new or worse trouble breathing. ?? You cough up blood. ?? You have a fever. Watch closely for changes in your health, and be sure to contact your doctor if: ?? You cough more deeply or more often, especially if you notice more mucus or a change in the colorof your mucus. ?? You have new or worse swelling in your legs or belly. ?? You are not getting better as expected. Where can you learn more? Visit our health information library at [email or web address] You can also view health information on [place] [facility], your personal patient account. Log in or sign up today. Enter X915 in the search box to learn more about Chronic Obstructive Pulmonary Disease (COPD): AfterYour Visit. ?? [id number] [employer]. Care instructions adapted under license by [facility]. This care instruction is for use with your licensed healthcare professional. If you have questionsabout a medical condition or this instruction, always ask your healthcare professional. [employer] disclaims any warranty or liability for your use of this information. Content Version: [id number]; Last Revised: December 29, 2012 documented in this encounter Medications at Time of Discharge Medication Sig Dispensed Refills Start Date End Date azithromycin (ZITHROMAX) Take 1 tablet by 4 tablet 0 12/1912/23/2013 250 mg tablet mouth daily for 4 days. Day1:take 2 tablets daily, Day 2-5:Take one tablet daily predniSONE (DELTASONE) 20 Take 3 tablets by 12 tablet 0 02/201412/23/2013 mg tablet mouth daily for 4 days. gabapentin (NEURONTIN) 800 MG = 1 0 08/26/2010 800 mg tablet Tablet(s), PO, Q8H aspirin 325 [...] documented as of this encounter ED Notes Blanca Ryder RN - 12/18/2013 4:59 PM EDT Pt discharged to home. Pt stated understanding of discharge instructions Libby Mistry MD - 12/18/2013 2:17 PM EDT Radha Masterson is an 58 y.o. female who presents to the ED with: Chief Complaint Patient presents with ??? Chest Pain I saw this patient 12/18/2013 at 2:17 PM HPI Radha Masterson is a 58 y.o. female with PMH sig for COPD who presents to the Emergency Department withSOB. Patient reports 2-3 days of URI symptoms and cough. COugh today became productive of green sputum. Reports began feeling SOB when awoke from nap at noon. Reports feeling of chest tightness / restriction, like elephant is on chest. Feels like COPD exacerbation, and albuterol only helping a bit at home. Though denies chest pain, palps. Has history of L leg edema followed by PCP with neg DVT studies in past, this edema is unchanged. Denies fevers and diaphoresis, but reports chills. Review of Systems: Review of Systems Constitutional: Positive for chills. Negative for fever, diaphoresis and appetite change. HENT: Positive for congestion, sore throat and rhinorrhea. Negative for neck pain and neck stiffness. Eyes: Negative for photophobia and visual disturbance. Respiratory: Positive for cough, chest tightness, shortness of breath and wheezing. Negative for apnea and stridor. Cardiovascular: Positive for leg swelling. Negative for chest pain and palpitations. Gastrointestinal: Negative for nausea, vomiting, abdominal pain, diarrhea and constipation. Genitourinary: Negative for dysuria, urgency and frequency. Musculoskeletal: Negative for myalgias and arthralgias. Skin: Negative for color change, pallor and rash. Neurological: Negative for dizziness, light-headedness and headaches. Hematological: Does not bruise/bleed easily. Psychiatric/Behavioral: Negative for confusion and agitation. Physical Exam: Patient Vitals for the past 24 hrs: BP Temp Temp src Pulse Resp SpO2 Weight 12/18/13 1330 155/93 mmHg - - 94 14 95 % - 12/18/13 1320 158/108 mmHg 36.7 ??C (98.1 ??F) Oral 97 24 93 % 180.532 kg (398 lb) 12/18/13 1318 158/108 mmHg - - 98 16 95 % - Physical Exam Constitutional: She is oriented to person, place, and time. She appears well- developed and well-nourished. No distress. Reading tablet computer, comfortable in bed HENT: Mouth/Throat: Oropharynx is clear and moist. No oropharyngeal exudate. Eyes: Conjunctivae normal are normal. No scleral icterus. Neck: Neck supple. No JVD present. No tracheal deviation present. Cardiovascular: Normal rate, regular rhythm, normal heart sounds and intact distal pulses. Pulmonary/Chest: Effort normal. No stridor. She has wheezes. She has no rales. Diffuse end expiratory wheezing Abdominal: Soft. Bowel sounds are normal. She exhibits no distension. There is no tenderness. There is no rebound. Musculoskeletal: Normal range of motion. She exhibits edema. L sided > R nonpitting edema, states this is baseline Neurological: She is alert and oriented to person, place, and time. Skin: Skin is warm and dry. No rash noted. She is not diaphoretic. No erythema. No pallor. Psychiatric: She has a normal mood and affect. Her behavior is normal. Thought content normal. Laboratory Results: BMP and CBC unremarkable, Card Enzymes neg, Imaging Results: CXR: no pneumonia or pulm edema ED Course: - Patient was evaluated and discussed with Dr. Mistry - Medications, allergies and past medical history reviewed - Duoneb q15min x3, albuterol neb x1, prednisone 60mg PO, ASA 325mg PO, Azithromycin 500mg - EKG: sinus tach with vent rate of 102, no acute ischemic changes Assessment and Plan: Assessment: 58 y.o. female with SOB, wheezing, and improvement with nebulizers and reassuring CXR. Patient hemodynamically stable in ED, with SpO2s in mid to high 90s on RA. Patient comfortable in room, though with diffuse wheezing at first. Patient improved symptomatically and on pulm exam after duonebs and albuterol nebs. Given patient reports these symptoms consistent with prior COPD exacerbationsand improved with ED treatment, likely COPD is cause of presentation. Reflex cardiac labs were ordered at arrival to ED by nursing staff, which would not have been ordered after evaluation by MD, but those labs were reassuring [id number]. ACS less likely to explain diffuse wheezing without pulmonary edema / CHF signs on CXR. PE was considered, but given clinical improvement with treatment, was notfurther pursued as explanation for symptoms. Patient was told to have low threshold to return to ED,continue albuterol PRN, and take course of prednisone and azithromycin (given other infections symptoms early pneumonia considered still possible despite CXR without consolidation). Return precautions were verbally discussed with the patient. The patient expressed understanding that they could come back to the ED at any time and agreed to the follow-up plan. Plan: - d/c home - Follow up with PCP - albuterol / prednisone burst / azithromycin - Return precautions Pratik Maynard MD Resident 12/18/13 181 ED ATTENDING ATTESTATION NOTE The patient was seen in conjunction with Dr. Maynard, the resident physician. I have independently performed the hickman portions of the history and physical exam. I have reviewed all diagnostic studies personally including labs, imaging studies and EKGs. I have discussed the details of the case with the resident and agree with the assessment and plan as described in the resident note above unless noted otherwise below. Brief Summary: 58y/o woman with hx of COPD presents with COPD exacerbation after recent URI symptoms. She improved symptomatically and on pulmonary exam after duonebs and prednisone. CXR shows no infiltrate. She was given scripts for prednisone and azithromycin for moderate COPD exacerbation. She has plenty of albuterol MDI available to her. Given her improvement with albuterol, PE is unlikely. Her presentation is also not consistent with ACS. Final Assessment: COPD exacerbation. Discharged home with close outpatient follow-up. Libby Mistry MD 12/18/131953 Teresa Higuera RN - 12/18/2013 1:40 PM EDT Peak flow 155. documented in this encounter Miscellaneous Notes Discharge Summary - Provider, Scanning - 12/19/2013 8:46 AM EDT Miscellaneous - Provider, Scanning - 12/18/2013 6:29 PM EDT ED Triage - Teresa Higuera RN - 12/18/2013 1:35 PM EDT Pt. Presents with chest heaviness feels like, elephant is sitting on her chest also c/o difficultybreathing with inspiratory and exp. Wheezing x 1 hour. Pt. Has been staying with a pt. Who is admitted with pneumonia for the last 3 days. Pt. Arrives in motorized w/c. Able to transfer herself from w/c to stretcher. documented in this encounter Plan of Treatment Scheduled Orders Name Type Priority Associated Diagnoses Order S chedule EKG 12 Lead ECG STAT One Time for 1 Occurrences starting 12/18/2013 unti l 12/18/2013 documented as of this encounter Procedures Procedure Name Priority Date/Time Associated Diagnosis Comme nts XR CHEST PA AND STAT 12/18/2013 2:26 PM Result s for this LATERAL EDT procedure are i n the results section. DIFFERENTIAL, STAT 12/18/2013 1:25 PM Results for this AUTOMATED EDT procedure are i n the results section. BLUE TUBE HOLD STAT 12/18/2013 1:25 PM Results for this EDT procedure are i n the results section. CARDIAC ENZYMES STAT 12/18/2013 1:25 PM Result s for this [place] EDT procedure are i n the results section. CBC (WITH DIFF) STAT 12/18/2013 1:25 PM Result s for this EDT procedure are i n the results section. BASIC METABOLIC STAT 12/18/2013 1:25 PM Result s for this PANEL (NON-FASTING) EDT procedur e are in the results section. EKG 12-LEAD STAT 12/18/2013 1:13 PM Results f or this EDT procedure are i n the results section. documented in this encounter Results XR chest routine PA & lateral (12/18/2013 2:26 PM EDT) Anatomical Region Laterality Modality Chest N/A Radiographic Imaging Specimen (Source) Anatomical Collection Method Collection Time Re ceived Time Location / / Volume Laterality 12/18/2013 2:26 PM EDT Narrative 12/18/2013 2:41 PM EDT Examination CHEST ROUTINE 2 VIEWS Clinical History SOB cough, ?pneumonia? Comparison 05/03/2008. Technique AP and lateral views of the chest. Findings Examination limited by body habitus on t he frontal projection and lower lung volumes on the lateral view compared to prior, consistent with shallower inspiration. ?? Allowing for this, the lungs appear well expanded, ??with no definite airspace opacity is identified. ??No pleural effu gustavo is seen. ??Cardiomediastinal silhouette may be unchanged allowing for AP magnification. ??Vascular markings appear within normal limits. ??No signif icant interval osseous findings are seen. Impression No definite acute cardiopulmonary pathol ogy. Procedure Note Tosha Covarrubias MD - 12/18/2013Formatt ing of this note might be different from the original. Examination CHEST ROUTINE 2 VIEWS Clinical History SOB cough, ?pneumonia? Comparison 05/03/2008. Technique AP and lateral views of the chest. Findings Examination limited by body habitus on t he frontal projection and lower lung volumes on the lateral view compared to prior, consistent with shallower inspiration. Allowing for this, the lungs appear well expanded, with no definite airspace opacity is identified. No pleural effusi on is seen. Cardiomediastinal silhouette may be unchanged allowing for AP magnification. Vascular markings appear within normal limits. No signific ant interval osseous findings are seen. Impression No definite acute cardiopulmonary pathol ogy. Libby Mistry MD IMG DX ORDERABLES Differential, Automated (12/18/2013 1:25 PM EDT) P athologist Signature Neutrophils % 56.1 34.0 - CERNER 71.0 % MILLENNIUM Neutr Abs (ANC) 4.03 1.50 - CERNER 6.30 MILLENNIUM x10(3)/mcL Lymphocytes % 27.9 19.0 - CERNER 53.0 % MILLENNIUM Lymphocytes Abs 2.0 1.0 - 3.6 CERNER x10(3)/mcL MILLENNIUM Monocytes % 10.9 4.0 - 13.0 CERNER % MILLENNIUM Monocyte Abs 0.8 0.2 - 1.0 CERNER x10(3)/mcL MILLENNIUM Eosinophils % 4.7 0.0 - 7.0 CERNER % MILLENNIUM Eosinophils Abs 0.3 0.0 - 0.5 CERNER x10(3)/mcL MILLENNIUM Basophils % 0.3 0.0 - 2.0 CERNER % MILLENNIUM Basophils Abs 0.0 0.0 - 0.2 CERNER x10(3)/mcL MILLENNIUM Immature Gran % 0.10 0.00 - CERNER 0.66 % MILLENNIUM Comment: Immature granulocytes(IG's)percentage an d absolute count will include metamyelocytes, myelocytes, and promyelo cytes. Blood smears from CBCs yielding IG's will be scanned manually for conchuong dansherri. If this scan disagrees with the automated IG or if promyelocytes are not ed, a manual differential will be performed. Surekha Gran Abs 0.01 0.00 - 0.05 x10(3)/mcL CER NER MILLENNIUM Specimen Anatomical Collection Method Collection Time Receive d Time (Source) Location / / Volume Laterality Blood specimen 12/18/2013 1:25 PM 014 1:40 (specimen) EDT PM EDT Shahram Oscar Jr., MD HEMATOLOGY ORDERABLES Performing Organization Address City/State/ZIP Code Phon e Number [place] [phone] CERNER MILLENNIUM (ABNORMAL) Basic Metabolic Panel (non-fasting) (12/18/2013 1:25 PM EDT) P athologist Signature Glucose Lvl 101 60 - 199 CERNER mg/dL MILLENNIUM Comment: Diabetes: >=200 mg/dL plus symp toms BUN 17 8 - 18 mg/dL CERNER MILLENNIUM Creatinine 0.66 (L) 0.70 - 1.20 mg/dL CERNER MILL ENNIUM Comment: Please note that the pediatric reference intervals supplied above were not validated [place] [facility]. Results from pediatri c patients should be interpreted in conjunction to the patient's age, height and muscle mass. Sodium 140 135 - 145 mmol/L CERNER DESTINI NIUM Potassium 3.9 3.5 - 5.0 mmol/L CERNER DESTINI NIUM Comment: Please note: ??Patients with WBC >100,00 0 may have falsely elevated Potassium levels. ??For accurate Potassium quantif ication in these patients send serum separator tube (gold top) for subsequent determinations. ??Contact the Clinical Chemistry Laboratory if there are any qu estions. Chloride 106 98 - 107 mmol/L CERNER MILLENN IUM CO2 23 22 - 31 mmol/L CERNER MILLENNI UM Anion Gap 11 5 - 15 mmol/L CERNER MILLENNIU M Calcium 8.8 8.5 - 10.5 mg/dL CERNER DESTINI NIUM Estimated GFR >60 >=60 CERNER MILLENNIU M Comment: This estimated GFR (eGFR) value was [...] the following links into your internet browser. http://www.nkdep.nih.gov/lab-evaluation. shtml http://www.kidney.org/professionals/ Specimen Anatomical Collection Method Collection Time Receive d Time (Source) Location / / Volume Laterality Blood specimen 12/18/2013 1:25 PM 014 1:40 (specimen) EDT PM EDT Resulting Agency Comment Spec In Lab Shahram Oscar Jr., MD CHEMISTRY ORDERABLES Performing Organization Address City/State/[place] [address] CERNER MILLENNIUM CBC (with Diff) (12/18/2013 1:25 PM EDT) P athologist Signature WBC 7.2 4.0 - 10.0 CERNER x10(3)/mcL MILLENNIUM RBC 4.74 3.93 - 5.22 CERNER x10(6)/mcL MILLENNIUM Hemoglobin 13.9 11.2 - 15.7 CERNER gm/dL MILLENNIUM Hematocrit 42.2 34.0 - 45.0 CERNER % MILLENNIUM MCV 89.0 79.0 - 94.0 CERNER fL MILLENNIUM MCH 29.3 26.6 - 32.2 CERNER pg MILLENNIUM MCHC 32.9 32.0 - 36.5 CERNER gm/dL MILLENNIUM Platelets 261 145 - 370 CERNER x10(3)/mcL MILLENNIUM RDWSD 45.3 35.0 - 46.0 CERNER fL MILLENNIUM RDWCV 14.0 10.9 - 14.4 CERNER % MILLENNIUM MPV 11.1 9.0 - 12.0 CERNER fL MILLENNIUM Specimen Anatomical Collection Method Collection Time Receive d Time (Source) Location / / Volume Laterality Blood specimen 12/18/2013 1:25 PM 014 1:40 (specimen) EDT PM EDT Resulting Agency Comment Spec In Lab Shahram Oscar Jr., MD HEMATOLOGY ORDERABLES Performing Organization Address City/[facility]/ZIP Code Phon e Number [address] CERNER MILLENNIUM Cardiac Enzymes (12/18/2013 1:25 PM EDT) P athologist Signature Troponin-T <0.03 <=0.03 CERNER ng/mL [facility] Comment: 0.03 ng/mL: Represents the 99th percenti [...] consensus document of the Joint Society of Cardiology/[employer] College o f [employer] Committee for the redefinition of myocardial infarction. ? ?Journal of the [employer] College of Cardiology 2000; 36: 959-969] CK, Total 106 0 - 160 unit/L [employer] UM Specimen Anatomical Collection Method Collection Time Receive d Time (Source) Location / / Volume Laterality Blood specimen 12/18/2013 1:25 PM 014 1:40 (specimen) EDT PM EDT Resulting Agency Comment Spec In Lab Shahram Oscar Jr., MD CHEMISTRY ORDERABLES Performing Organization Address City/[facility]/ZIP Code Phon e Number [address] CERNER MILLENNIUM Blue Tube HOLD (12/18/2013 1:25 PM EDT) P athologist Signature Blue Hold Sample in [facility] lab. [facility]IUM Specimen Anatomical Collection Method Collection Time Receive d Time (Source) Location / / Volume Laterality Blood specimen 12/18/2013 1:25 PM 05/06/2 014 1:40 (specimen) EDT PM EDT Shahram Oscar Jr., MD HEMATOLOGY ORDERABLES Performing Organization Address City/State/ZIP Code Phon e Number [place] [phone] [employer] Industries[employer]UM EKG 12 Lead (12/18/2013 1:13 PM EDT) Component Value Ref Range Test Analysis Performed Pathologis t Method Time At Signature Ventricular rate 102 BPM MUSE SYSTEM Atrial Rate 102 BPM MUSE SYSTEM P-R Interval 162 ms MUSE SYSTEM QRS Duration 88 ms MUSE SYSTEM Q-T Interval 370 ms MUSE SYSTEM QTC Calculated 482 ms MUSE SYSTEM (Bezet) Calculated P [place] 60 degrees MUSE SYSTEM Calculated R [place] 63 degrees MUSE SYSTEM Calculated T [place] 30 degrees MUSE SYSTEM INTERPRETATION Sinus tachycardia MUSE SY STEM Otherwise normal ECG When compared with ECG of 03-MAY-2008 15:28, No significant change was found Confirmed by MD Madhu, Walter ([id number]) on 12/18/2013 8:12:10 PM Specimen Anatomical Collection Method Collection Time Receive d Time (Source) Location / / Volume Laterality 12/18/2013 1:13 PM 4 8:12 EDT PM EDT Shahram Oscar Jr., MD ECG ORDERABLES Performing Organization Address City/State/ZIP Code Phon e Number [facility] documented in this encounter Visit Diagnoses Diagnosis Acute exacerbation of chronic obstructiv e airways disease Obstructive chronic bronchitis with exac erbation documented in this encounter Administered Medications Inactive Administered Medications - up to 3 most recent administrations Medication Order MAR Action Action Date Dose Rate Site albuterol (PROVENTIL) nebulizer Given 12/18/2013 4:36 PM EDT 2.5 mg solution 2.5 mg 2.5 mg, Nebulization, ONCE, 1 dose, On Tue12/18/13 at 1615, STAT azithromycin (ZITHROMAX) tablet 500 mg Given 12/18/2013 4:36 PM EDT 500 mg 500 mg, Oral, ONCE, 1 dose, On Tue12/18/13 at 1645, STAT ipratropium-albuterol (DUONEB) 0.5 mg-3 mg(2.5 Given 0 12/18/2013 2:50 PM EDT 3 mLs mg base)/3 mL nebulizer solution 3 mL 3 mL, Nebulization, EVERY 15 MIN PRN, 3 doses, Starting on Tue12/18/13 at 1345, Until 12/18/13 at 1450, Wheezing, Wheezing or SOB, STAT Given 12/18/2013 2:30 PM EDT 3 mLs Given 12/18/2013 1:50 PM EDT 3 mLs predniSONE (DELTASONE) tablet 60 mg Given 12/18/2013 2:30 PM EDT 60 mg 60 mg, Oral, ONCE, 1 dose, On Tue12/18/13 at 1415, STAT documented in this encounter Active and Recently Administered Medications Times are shown in EDT. Scheduled Medication Order 12/16/2013 12/17/2013 12/18/2013 albuterol (PROVENTIL) nebulizer solution 2.5 mg (COMPLETED) 1636 (Given - Provider: Marry Hsieh RN) 2.5 mg, Nebulization, ONCE, 1 dose, e 12/18/13 at 1615, STAT azithromycin (ZITHROMAX) tablet 500 mg (COMPLETED) 1636 (Given - Provider: Marry Hsieh RN) 500 mg, Oral, ONCE, 1 dose, 12/18/13 at 1645, STAT predniSONE (DELTASONE) tablet 60 mg (COMPLETED) 1430 (Given - Provider: Teresa Higuera RN) 60 mg, Oral, ONCE, 1 dose, e 12/18/13 at 1415, STAT PRN Medication Order 12/16/2013 12/17/2013 12/18/2013 ipratropium-albuterol (DUONEB) 0.5 mg-3 mg(2.5 mg base)/3 mL nebulizer solution 3 mL (COMPLETED) 1350 (Given - Provid er: Teresa Higuera RN)1430 (Given - Provider: Teresa Higuera, RN)1450 (Given - Provider: Teresa Higuera RN) 3 mL, Nebulization, EVERY 15 MIN PRN, 3 doses, Starting Tue12/18/13 at 1345, Until Discontinued, Wheezing, Wheezing or SOB, STAT documented in this encounter Care Teams Sheet Metal Superintendent Relationship Specialty Start Date End Date Sunitha Milligan MD PCP - General 07/07/10 02/18/[address] [place] [address] [phone] documented as of this encounter
--- OUTSIDE RECORDS SUMMARY | 2022-03-05 02:19 | XMS_ITS | Encounter Summary ---
:1955 Author Organization [facility] [place] [address] Care Team Providers Name Role Phone Sunitha Milligan MD Primary Care Provider Encounter Details Date Type Department Care Team Description 04/25/2014 Orders Only MRI at [facility] [place] Sunitha Milligan MD [facility] D jonna [address] [place] [address] [place] [address] [phone] (Wo rk) Social History Tobacco Use Types Packs/Day Years Used Date Never Assessed Sex Assigned at Date Recorded Not on file documented as of this encounter Plan of Treatment Not on filedocumented as of this encounter Visit Diagnoses Not on filedocumented in this encounter Care Teams Brick Layer Relationship Specialty Start Date End Date Sunitha Milligan MD PCP - General 07/07/10 02/18/16 [address] [place] [address] documented as of this encounter
--- OUTSIDE RECORDS SUMMARY | 2022-03-05 02:19 | XMS_ITS | Encounter Summary ---
:1955 Author Organization [facility] [place] [address] Care Team Providers Name Role Phone Sunitha Mliligan MD Primary Care Provider Encounter Details Date Type Department Care Team Description 12/03/2010 Abstract Infectious Disease a t [facility] Vaishali Olsen, [place] [address] Social History Tobacco Use Types Packs/Day Years Used Date Never Assessed Sex Assigned at Date Recorded Not on file documented as of this encounter Plan of Treatment Not on filedocumented as of this encounter Visit Diagnoses Not on filedocumented in this encounter Care Teams Physician Gynecologist Relationship Specialty Start Date End Date Sunitha Milligan MD PCP - General 07/07/10 02/18/16 [address] [place], [place] [id number] documented as of this encounter
--- OUTSIDE RECORDS SUMMARY | 2022-03-05 02:19 | XMS_ITS | Encounter Summary ---
:1955 Author Organization [facility] [place] [address] Care Team Providers Name Role Phone Sunitha Milligan MD Primary Care Provider Reason for Visit Reason Comments Referral Encounter Details Date Type Department Care Team Description 05/21/2014 Office Visit [place] [facility] Padmini Lozano, Health care maintenance ([facility]); [facility] Lung nodule; Drive [facility] Pleural effusion; [place] [address] [address]; [phone] [facility] Pleural effusion, chylous [place], [place] [address] Social History Tobacco Use Types Packs/Day Years Used Date Former Smoker Sex Assigned at Date Recorded Not on file documented as of this encounter Last Filed Vital Signs Vital Sign Reading Time Taken Comments Blood Pressure 122/60 05/21/2014 11:09 AM EDT Pulse 90 05/21/2014 11:09 AM EDT Temperature - - Respiratory Rate 22 05/21/2014 11:09 AM EDT Oxygen Saturation 95% 05/21/2014 11:09 AM EDT Inhaled Oxygen Concentration - - Weight 182.3 kg (402 lb) 05/21/2014 11:09 AM EDT Height 161.3 cm (5' 3.5) 05/21/2014 11:09 AM EDT Body Mass Index 70.09 05/21/2014 11:09 AM EDT documented in this encounter Patient Instructions Patient InstructionsCarmen Loera LPN - 05/21/2014 11:14 AM EDT I would like you to sign up for myD-H, which will give you secure online access to your electronic medical record at [facility] and the ability to communicate with your health care team when and where it???s most convenient for you. With myD-H you will be able to: - look at parts of your medical record including test results and office notes - send and receive messages to/from me and your other providers - renew prescriptions - schedule appointments. To sign up, go to [email or web address] and click I have an activation code and follow the instructions. Here is your activation code: [email or web address] Expires: 07/05/2014 11:14 AM Remember, myD-H is NOT for urgent needs! Always dial 911 for medical emergencies. -I will request your record in March 2014 from [facility] -I will schedule you for another drainage of right chest fluid. This will be performed by Interventional radiologist at [facility] -Once the above study is completed, I would like you to call me at [phone] to discuss the result. -Also I will schedule you for a follow up CT scan to follow 1) a small spot in right lung 2) the status of fluid in July 2014. documented in this encounter Progress Notes Padmini Lozano MD - 05/21/2014 11:46 AM EDT Pulmonary Clinic Consult Note Reason for Consult: I was asked by Dr. Sunitha Milligan to evaluate this patient for pleural effusion I have personally interviewed and examined the patient, reviewed history, radiographic studies( if any) and laboratory data(if any). HPI: This a 59 y.o. year old female, was referred to me for evaluation of pleural effusion. Notably she had an episode of fall from a chair, landed on right chest, sometime in March 2014. She developed right chest pain several days later, went to ED and was admitted. Reportedly several attempts to drain but it was unsuccessful. CT on 03/22/2014 showed moderate to large effusion. Eventually she was transferred on 03/24/2014 to [facility] [place] guided chest tube placement and was sent back to [facility] after the successful tube placement. I don't see any report of pleural fluid study in [facility]. She said doctors at [facility] may have sent the test, but she is unsure about the result. More recently in 04/2014, she had another CT scan PE protocol here at [facility], which demonstrated no evidence of PE ( at least large one), it did show, however, right pleural effusion again. The CT also demonstrated a RML small nodule, for which 3 months f/u was recommended. She says she has been doing not so great in general. She has occasional yellowish sputum, FRY and chest tenderness/pain on right. Her right chest to back is very sensitive for sensation and it hurts even just being touched on skin gently. These has been unchanged since March. Other pertinent history includes morbid obesity, sleep apnea on BiPAP and COPD. Diagnostic studies: -CXR: -CT: 2013 PE protocol. -PFT: -ECHO: -Serology: -PET: -Biopsy: -Other: Problem List: Patient Active Problem List Diagnosis Date Noted ??? Pleural effusion on right 03/24/2014 ??? Obesity 12/03/2010 ??? CIS - Entered not Verified 08/20/2010 ??? CIS - L knee increasing pain 08/15/2009 ??? CIS - Aftercare TKAs 08/15/2004 PMHx: -COPD -morbid obesity -DAVID FHx: Non-contributory Social Hx: History Substance Use Topics ??? Smoking status: Former Smoker ??? Smokeless tobacco: Not on file ??? Alcohol Use: Not on file Tobacco: former smoker. Work/Environmental: Allergy: Allergies Allergen Reactions ??? Iodinated Contrast Media - Iv Dye ??? Iodine-Iodine Containing CIS - Rash, CIS - Rash Medications: Outpatient Prescriptions Marked as Taking for the 05/21/14 encounter (Office Visit) with Padmini Lozano MD Medication Sig Dispense Refill ??? gabapentin (NEURONTIN) [...] MG = 1 Tablet(s), PO, Twice daily ROS: Review of Systems: x = Yes GENERAL HEENT CV PULM All negative x All negative All negative All negative Weight loss Headache Angina Non-productive cough Weight gain Vision change Palpitations Productive cough Fevers Sinus congestion Presyncope Wheezing Chills Rhinorrhea Syncope Hemoptysis Diaphoresis Epistaxis x LE edema Pleuritic pain Poor sleep Post-nasal drip Claudication Orthopnea x Fatigue Throat clearing x Chest pain Paroxysmal dyspnea Dry eyes/mouth Platypnea Otalgia x sputum Hoarseness x FRY MSK RENAL ENDO GI/NUTRITION x All negative All negative xx All negative x All negative Arthralgias Polyuria Heat intolerance GERD Myalgias Oliguria Cold intolerance Dysphagia Deformity Hematuria Polydipsia Odynophagia Stiffness Flank pain Polyphagia Abdominal discomfort Wasting Dysuria Cushingoid Constipation Nocturia Hyperglycemia Diarrhea Hypoglycemia Nausea Steatorrhea LYMPH SKIN NEURO PSYCH x All negative x All negative x All negative x All negative Swollen nodes Rash Seizures Depressed affect Tender nodes Ulcers Tremors Occupational stress Diffuse nodes Purpura Spasticity Troubled relationship(s) Local nodes Pigmented lesion Focal weakness Insomnia Telangiectasias Diplopia Anxiety Angiomata Paresthesias Absenteeism Tanned skin Vitals and Physical Exam: BP 122/60 Pulse 90 Resp 22 Ht 161.3 cm (5' 3.5) Wt 182.346 kg (402 lb) BMI 70.09 kg/m2 SpO2 95% Gen: morbidly obese. Awake and alert. No distress but c/o right chest and back pain in a motor scooter. HEENT: PERRL, EOMI, Moist oral mucosal membrane wto lesions , eyes wto injection or exudates. No stridor Nodes: No cervical, supraclavicular LAP. Chest: CTA without wheezing/rhonchi/crackles Skin very tender to touch over chest to back. Cor: RRR, S1S2, No MRG. distant Abd: obese. soft Extrem: no C/C + edema Neuro: no focal deficits Labs/Tests: Labs Lab Results Component Value Date WBC 7.2 12/18/2013 HGB 13.9 12/18/2013 HCT 42.2 12/18/2013 PLATELET 261 12/18/2013 Lab Results Component Value Date NA 140 12/18/2013 K 3.9 12/18/2013 CL 106 12/18/2013 CO2 23 12/18/2013 BUN 17 12/18/2013 CREATININE 0.66* 12/18/2013 Lab Results Component Value Date CALCIUM 8.8 12/18/2013 No results found for this basename: ast, alt, alkphos, bilitot, bilidir No results found for this basename: inr, pt, ptt No results found for this basename: phart, po2art, quf3zkp Diagnostic Imaging: (I personally reviewed the radiographs and PFTs, unless otherwise stated.) CT chest 04/30/2014 CT Chest for Pulmonary Embolus With [...] consider CT follow up in 3 months. PFTs date FVC FEV1 FEV/FVC VC TLC RV RV/TLC DsbHb SpO2 Summary: -right pleural effusion -right chest/back pain -small right lung nodule Impression/recommendation: This is a 59 yo morbidly obese woman found to have right pleural effusion after fall and right chestinjury, which persisting on a more recently CT in 04/2014. Unfortunately I don't have documentation of pleural fluid study result. Hemorrhagic effusion ( or hemothorax) was mentioned somewhere, however I don't see the result. I will try to obtain the record from [facility]. Even 1st tap result was negative for malignancy or infection, I believe she will need another(2nd) thoracenthesis since it is still persistent. With the giveher body habitus, the procedure is very technically challenging and I will need to refer her to IR again. The fluid should be sent for bacterial cx ( both anerobic, aerobic and actinomyces ), AFB and fungal cx, CYTOLOGY, cell counts and diff, LDH, protein, amylase, pH, glucose and blood should be drawn at the same time for comparison. If it is non- diagnostic, then next step would be VATS ( or pleuroscopy), which will be at least moderate risk with the given comorbidity and her body habitus. Sometimes, if hemothorax is not completely drained, it will creates broad adhesion and trapped lung,resulting passive fluid retention/atelectasis in the pleural cavity. So this is another possibility. The nature of her chest and back pain ( extremely tender skin) is unclear to me. It is only right side, I am not sure it correlate with one dermatome. However, pain from intercostal nerve(such as T7 radiculopathy from compression, for example) is a possibility as well as pleural pain ( which usually does not cause skin tenderness) from inflammation/neoplasm or adhesion. For the small lung nodule, she should have another CT in 3months. ( July ). If pleural study is unrevealing and she continue to have pain, she may need thoracic surgery eval for persistent non-diagnosed effusion/possible adhesion /persistent chest wall pain. Also neurology consult may be appropriate. I will tentatively schedule her in 4 months for follow up. The above recommendation was discussed with the patient in detail, then all questions were answered.I advised the patient to call us back for any questions, concerns or changes in the interim. I spent more than 50% of this __60 minute visit in counseling the patient, reviewing charts/records/labs/tests, or discussion with other health care providers. Thank you very much for participating in the care of this patient. Please contact us at [phone] any further questions or requests. documented in this encounter Plan of Treatment Not on filedocumented as of this encounter Procedures Procedure Name Priority Date/Time Associated Comments Diagnosis CYTOPATHOLOGY Routine 05/21/2014 6:11 PM Pleural effusion Resu lts for this NON-GYNECOLOGICAL EDT procedure are in the results section. [...] 06/11/2014. Padmini Lozano MD IMG CT ORDERABLES IR chest drainage procedure (06/11/2014 2:49 PM EDT) Anatomical Region Laterality Modality Chest X-Ray Angiography Specimen (Source) Anatomical Collection Method Collection Time Re ceived Time Location / / Volume Laterality 06/11/2014 2:49 PM EDT Narrative 06/12/2014 8:07 AM EDT ? ; ? Procedures ?; ?? {CR} ? ; ? 1. PRG ?? US CHEST REAL TIME [54208 (CPT)] ?; ?? {CR} ? ; ?? {CR} ? ; ? VIR Proced ure Note ?A# ?? [id number] ?Indication: ?? 59 yo morbidly obese woman found to have right ?? pleural effusion after fall and right chest injury. Referred to [facility] [place] ?? chest tube placement on 03/24/14 and later returned to [facility]. Effusion seen on ?? recent CT scan [...] ; 1. PRG US CHEST REAL TIME [48769 (CPT)] ; {CR} ; {CR} ; VIR Procedure Note A# [id number] Indicat ion: 59 yo morbidly obese woman found to have right pleural effusion after fall and right chest injury. Referred [place] [facility] [place] tube placement on 03/24/14 and later returned to [facility]. Effusion seen on recent CT scan and [...] {CR} Padmini Lozano MD IMG IR ORDERABLES (ABNORMAL) Lactate Dehydrogenase (06/11/2014 11:26 AM EDT) athologist Signature LDH 277 (H) 110 - 220 CERNER unit/L MILLENNIUM Specimen Anatomical Collection Method Collection Time Receive d Time (Source) Location / / Volume Laterality Blood specimen 06/11/2014 11:26 4 (specimen) AM EDT 11:28 AM EDT Resulting Agency Comment Spec In Lab Padmini Lozano MD CHEMISTRY ORDERABLES Performing Organization Address City/State/[place] [address] CERNER MILLENNIUM Protein, total (06/11/2014 11:26 AM EDT) P athologist Signature Total Protein 6.8 6.4 - 8.3 CERNER gm/dL [facility]ILLENNIUM Specimen Anatomical Collection Method Collection Time Receive d Time (Source) Location / / Volume Laterality Blood specimen 06/11/2014 11:26 4 (specimen) AM EDT 11:28 AM EDT Resulting Agency Comment Spec In Lab Padmini Lozano MD CHEMISTRY ORDERABLES Performing Organization Address City/State/ZIP Code Phon e Number [address] [facility] Glucose, random (06/11/2014 11:26 AM EDT) P athologist Signature Glucose Lvl 120 60 - 199 CERNER mg/dL [facility] Comment: Diabetes: >=200 mg/dL plus symp toms Specimen Anatomical Collection Method Collection Time Receive d Time (Source) Location / / Volume Laterality Blood specimen 06/11/2014 11:26 4 (specimen) AM EDT 11:28 AM EDT Resulting Agency Comment Spec In Lab Padmini Lozano MD CHEMISTRY ORDERABLES Performing Organization Address City/State/ZIP Code Phon e Number [address] [facility] Cytopathology Non-Gynecological (05/21/2014 6:11 PM EDT) Specimen Anatomical Collection Method Collection Time Receive d Time (Source) Location / / Volume Laterality AP Specimen 05/21/2014 6:11 PM 4 6:11 EDT PM EDT Narrative CERNER MILLENNIUM - 05/21/2014 6:11 PM E DT Specimen requisition ordered. ??Separate Pathology report to follow Padmini Lozano MD PATHOLOGY/CYTOLOGY ORDERABLE S Performing Organization Address City/State/ZIP Code Phon e Number [address] [facility] documented in this encounter Visit Diagnoses Diagnosis Health care maintenance - Primary Unspecified general medical examination Lung nodule Solitary pulmonary nodule Pleural effusion Unspecified pleural effusion Hyperglycemia Other abnormal glucose Pleural effusion, chylous Other specified forms of effusion, excep t tuberculous Pleural effusion on right Unspecified pleural effusion Pleural effusion Unspecified pleural effusion Lung nodule Solitary pulmonary nodule documented in this encounter Care Teams Press Puller Relationship Specialty Start Date End Date Sunitha Milligan MD PCP - General 07/07/10 02/18/16 [address] [place] [address] documented as of this encounter
--- OUTSIDE RECORDS SUMMARY | 2022-03-05 02:21 | XMS_ITS | Encounter Summary ---
:1955 Author Organization [facility] Address [address] [place] [address] Care Team Providers Name Role Phone Unavailable Primary Care Provider Unavailable Encounter Details Date Type Department Care Team Description 03/22/2014 Hospital Encounter [facility] Unknown, Provider, [facility] [address] [facility] [phone] [place] [address] (Work) [phone] Social History Tobacco Use Types Packs/Day Years Used Date Never Assessed Sex Assigned at Date Recorded Not on file documented as of this encounter Discharge Disposition Disposition Code Departure Means Destination Home or Self Snf documented in this encounter Plan of Treatment Not on filedocumented as of this encounter Visit Diagnoses Not on filedocumented in this encounter
--- OUTSIDE RECORDS SUMMARY | 2022-03-05 02:21 | XMS_ITS | Encounter Summary ---
:1955 Author Organization [facility] Address [address] [place] [address] Care Team Providers Name Role Phone Brandan Fabian MD Primary Care Provider Unavailable Reason for Visit Reason Onset Date Comments Appointment Related 10/05/2019 Encounter Details Date Type Department Care Team Description 10/05/2019 Telephone [facility] Therapy, Appointme nt Related Rehabilitation Therapy - Outpatient, [address] [address] Social History Tobacco Use Types Packs/Day Years Used Date Never Assessed Sex Assigned at Date Recorded Not on file documented as of this encounter Miscellaneous Notes Telephone Encounter - Deonte Guy MA - 10/05/2019 0935 EST Contacted patient today to reschedule PWCE as Kurt Pathak is already booked for an appointment on 10/22 (and patient is unavailable in the morning of that day). We had the afternoon of 11/01 available that was offered to the patient, or a time of 0900 on 10/23 and the patient opted for the 10/23 @ 0900 with Anca Oreilly. Patient has confirmed appointment. Awaiting [facility] approval which will come via email. DEONTE GUY MA 10/05/2019 9:54 documented in this encounter Plan of Treatment Not on filedocumented as of this encounter Visit Diagnoses Not on filedocumented in this encounter Care Teams Sugarcane Planter Relationship Specialty Start Date End Date Brandan Fabian MD PCP - General 11/19/15 10/21/19 documented as of this encounter
--- OUTSIDE RECORDS SUMMARY | 2022-03-05 02:21 | XMS_ITS | Encounter Summary ---
:1955 Author Organization [facility] Address [address] [place] [address] Care Team Providers Name Role Phone Unknown, Provider Primary Care Provider Encounter Details Date Type Department Care Team Description 04/04/2014 Results Only [facility] Nataly Trotter MD Laboratory Services - [address] [address] [address] [facility] [place], [place] [id number] [phone] Social History Tobacco Use Types Packs/Day Years Used Date Never Assessed Sex Assigned at Date Recorded Not on file documented as of this encounter Plan of Treatment Not on filedocumented as of this encounter Procedures Procedure Name Priority Date/Time Associated Diagnosis Comme nts PAP TEST- RESULT Routine 04/04/2014 0:00 EDT Resu lts for this ONLY procedure are i n the results section. documented in this encounter Results PAP TEST- RESULT ONLY (04/04/2014 0:00 EDT) Pathology Report: CYTOPATHOLOGY REPORT [facility] Reports generated via electronic interface contain amarilys ginal data; however they are lacking the format of the original re port. Caution should be taken when reading/interpreting unfo rmatted reports. Name: ? 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 Accession #: ? [id number] ? : ? 1955 (Age: 58) ??F ?Collect Da te: ? 04/04/2014 ? Location: ? [facility] ? Receive Date: ? 014 ? Provider: HARIKA TROTTER MD Copy to: ? Final Report SPECIMEN ADEQUACY ? Satisfactory for Evaluation - transformation zone component absent GENERAL CATEGORIZATION ? Negative for Intraepithelial Lesion or Malignan cy ?? Menstrual/ Status: ??Post Menopausal Specimen/Source: ??Pap Test, Cervix/Endocervix, ThinPr ep Imaging System with manual evaluation Document reviewed and electronically signed by: ? DELFINA Mcgarry(ASCP) ? Report ??Date: 04/12/2014 14:20 HPV with Pap Test ? Date Ordered: ? 04/12/2014 ? Status: ?? Signed Out ?Date Complete: ? 04/17/2014 ? By: ??S ystem Interface ? Date Reported: ? 04/17/2014 ? Interpretation RESULT: Negative for HPV. No E6 or E7 mRNA is detected from HPV types 16,18,31,3 3,35, 39,45,51,52,56,58,59,66, and 68 by government professor media seth amplification. Comments Document reviewed and electronically signed by: ? System Interface ? Report date: 04/17/2014 By the signature above, the attending physician certif ies that he/she has personally conducted a gross and/or microscopic examin ation of the described specimens and rendered or confirmed the above diagnosi s. End of Report Specimen Performing Organization Address City/State/ZIP Code Phon e Number [facility] [address] [place] [address] SERVICES [facility] [address] [place] [address] documented in this encounter Visit Diagnoses Not on filedocumented in this encounter Care Teams Weekday Babysitter Relationship Specialty Start Date End Date Unknown, Provider, PCP - General 03/29/14 11/16/15 documented as of this encounter
--- OUTSIDE RECORDS SUMMARY | 2022-03-05 02:21 | XMS_ITS | Encounter Summary ---
:1955 Author Organization [facility] Address [address] [place] [address] Care Team Providers Name Role Phone Alphonso Murphy MD Primary Care Provider [phone] Reason for Visit Reason Onset Date Comments DME 02/01/2020 Encounter Details Date Type Department Care Team Description 02/01/2020 Telephone [facility] Vincent Oreilly, PT DME Rehabilitation Therapy - [address] [address] [address] [facility] [place] [address] [phone] Social History Tobacco Use Types Packs/Day Years Used Date Never Assessed Sex Assigned at Date Recorded Not on file COVID-19 Exposure Response Date Recorded In the last month, have you been in contact with No / Unsure 01/15/2020 12:43 EDT someone who was confirmed or suspected to have Coronavirus / COVID-19? documented as of this encounter Miscellaneous Notes Telephone Encounter - Anca Oreilly, PT - 02/01/2020 1209 EDT I returned Radha's call. She said she loves the new chair and feels it is a lot more durable and robust than the previous chair. She has 2 concerns: 1. The seat depth is long and she feels like it leaves pompa under her distal thighs by the end of the day. 2. She feels like she sits in too much recline and would like the back brought up to a more upright position. I explained that both of these are fully adjustable on the new chair and I will have [employer] make an appointment with her to make the adjustments when they are going near her house. Anca Oreilly, PT documented in this encounter Plan of Treatment Not on filedocumented as of this encounter Visit Diagnoses Not on filedocumented in this encounter Care Teams Retail Sales Assistant Relationship Specialty Start Date End Date Alphonso Murphy MD PCP - General 10/22/[address] [place] [id number] documented as of this encounter
--- OUTSIDE RECORDS SUMMARY | 2022-03-05 02:21 | XMS_ITS | Encounter Summary ---
:1955 Author Organization [facility] Address [address] [place] [address] Care Team Providers Name Role Phone Alphonso Murphy MD Primary Care Provider Encounter Details Date Type Department Care Team Description 01/24/2020 Plan of Care Documentation Social History Tobacco Use Types Packs/Day Years Used Date Never Assessed Sex Assigned at Date Recorded Not on file COVID-19 Exposure Response Date Recorded In the last month, have you been in contact with No / Unsure 01/15/2020 12:43 EDT someone who was confirmed or suspected to have Coronavirus / COVID-19? documented as of this encounter Progress Notes Anca Oreilly P, PT - 01/24/2020 1255 EDT Outpatient Rehab Plan of Care Assessment Radha received her new wheelchair today, which fit her much better than the one she is using. Also, the chair has a more robust frame and higher performance motors and electronics, so hopefully it will withstand Radha' very aggressive use pattern. No further skilled Physical therapy is needed. Longterm Goals: 8 weeks Radha will have a power chair that will provide the following: ?? She will be able to safely get to the [employer] van she uses to get to medical care. (Partially met, Needs transit brackets installed. ) ?? Her left leg will be supported at neutral. (met) P: Discontinue Physical Therapy. Plan ATTENDING PHYSICIAN: Medicare certification needed. Your signature indicates you approve the therapygoals and plan of care outlined on this document dated 01/24/2020. Thank you! Attending Physician Signature Date Anca Oreilly, PT 01/24/2020 12:54 documented in this encounter Plan of Treatment Not on filedocumented as of this encounter Visit Diagnoses Not on filedocumented in this encounter Care Teams Housing Quality Standard Inspector Relationship Specialty Start Date End Date Alphonso Murphy MD PCP - General 10/22/[address] [place] [id number] documented as of this encounter
--- OUTSIDE RECORDS SUMMARY | 2022-03-05 02:21 | XMS_ITS | Encounter Summary ---
:1955 Author Organization [facility] Address [address] [place] [address] Care Team Providers Name Role Phone Alphonso Murphy MD Primary Care Provider [phone] Encounter Details Date Type Department Care Team Description 01/15/2020 Travel Social History Tobacco Use Types Packs/Day Years Used Date Never Assessed Sex Assigned at Date Recorded Not on file COVID-19 Exposure Response Date Recorded In the last month, have you been in contact with No / Unsure 01/15/2020 12:43 EDT someone who was confirmed or suspected to have Coronavirus / COVID-19? documented as of this encounter Plan of Treatment Not on filedocumented as of this encounter Visit Diagnoses Not on filedocumented in this encounter Care Teams Farmworker Field Crop Relationship Specialty Start Date End Date Alphonso Murphy MD PCP - General 10/22/19 [address] [place] [address] documented as of this encounter
--- OUTSIDE RECORDS SUMMARY | 2022-03-05 02:21 | XMS_ITS | Encounter Summary ---
:1955 Author Organization [facility] Address [address] [place] [address] Care Team Providers Name Role Phone Alphonso Murphy MD Primary Care Provider Encounter Details Date Type Department Care Team Description 10/31/2019 Plan of Care Documentation Social History Tobacco Use Types Packs/Day Years Used Date Never Assessed Sex Assigned at Date Recorded Not on file documented as of this encounter Progress Notes Anca Oreilly, PT - 10/31/2019 1520 EDT Outpatient Rehab Plan of Care Assessment REHABILITATION THERAPIES [facility] - [address] [address] Physical Therapy Initial Evaluation Note Wheelchair Clinic Date of Service: 10/31/2019 Reason for Referral: Diagnosis: Spinal Stenosis; Chronic Obstructive Pulmonary Disease; Left Leg Weakness; Wheelchair Dependent; Wheelchair Fitting Date of Onset: 10/23/19 Referring Provider: Brandan Fabian MD Precautions: n Continuous O2; History o f DVT Session #: 1 Subjective: Radha reports that her power chair has failure of the motors every month. She is very dissatisfied with the durability of this power chair that she received 3 years ago. This is in spite of eliminating much of the driving she used to do up and down the hills of [facility]. However, she has a very steep incline to get up to her home from where the [employer] van drops her off. Pain: Get discomfort behind her left leg due to the chair cutting off her circulation after sitting for a while. (NOTE: palpation of the foam Captain's seat she uses shows that the foam is compressed and there is a palpable edge to the underlying solid base. Patient???s goals for treatment: To be evaluated for a new power chair that will hold up under her use. She also wonders if there is a better way to support her left leg which falls sideways off of theseat, and a way to support her leg so she is not resting on the outside of her foot. Objective: Patient Profile: Radha Masterson is a 64 y.o. female with obesity, Chronic obstructive pulmonary disease (on continuous oxygen at 4 l/min), spinal stenosis with progressive left leg weakness, status post remote bilateral total knee replacements. She has used a power chair for years and is presenting to physical therapy because she is now completely non ambulatory. Her existing 3 year old power chair has had continual motor failures requiring frequent replacement. Caregiver Support: Lives alone but her grandchildren are in and out. Home Environment:Type of home: Single level Ramp access available: yes Stairs: no Turning radius in the home: Existing chair fits throughout the home. Narrowest door width patient needs to access in home: Reports she just has enough room to get the chair through doorways. Current wheelchair: ?? Brand/style of primary wheelchair: Attune HD heavy duty group 2 power chair with 22 wide Captain's seating. ?? Age of wheelchair: 3 years old. ?? Cushion style/age: Captain's seat is crushed down completely on the left. ?? Condition of primary mobility device: Motors keep breaking on the chair. (I replace them every 6weeks). Foam upholstered seat is crushed down. ?? Posture in current equipment: Legs are splayed out and the right leg collapses into external rotation, resting on the OUTSIDE of her left foot. ?? The patient currently sits in wheelchair all day. Transportation: Type of vehicle: [facility] typically or truck with outside wheelchair carrier. NOTE: Examination of the carrier today showed 28 wide home made wooden carrier. Radha said her friend can modify this to be wider. Prior Level of Function: When she got her existing wheelchair she could walk 15' with a rollator walker. Medical/Surgical History: Current: Radha does not have a problem list on file. Radha has a past medical history of Allergic conjunctivitis, Asthma, Chronic headaches, Chronic respiratory failure with hypoxia and hypercapnia (HCC-CMS), COPD (chronic obstructive pulmonary disease) ([facility]), Depression, Femur fracture, left ([facility]) (2005), Hyperglycemia, Low back pain with sciatica (05/03/2014), Morbid obesity ([facility]), Multinodular goiter, DAVID treated with BiPAP, Pleural effusion (05/03/2014), Right ventricular dysfunction, Sensorineural hearing loss, bilateral, Sprain of scapholunate ligament (03/21/2019), Urinary incontinence, and Varicose vein of leg.. Radha has a past surgical history that includes Total knee arthroplasty (Left, 2004) and fasciotomy. Medications: The patient has a current medication list which includes the following prescription(s):albuterol, ascorbic acid (vitamin c), aspirin, budesonide-formoterol hfa, bupropion hcl, buspirone, citalopram, clotrimazole, fluticasone propionate, furosemide, gabapentin, ipratropium-albuterol, ketot ifen, magnesium oxide/magnesium, metformin, nystatin, pot bicarb/potassium cit/ca, potassium chloride cr, silver sulfadiazine, and triamcinolone. Arousal, Attention, and Cognition: Able to direct her own care. No cognitive issues noted. Cardiopulmonary: HR (bpm) BP (mmhg) SPO2/FIO2 % 87 99% on 4l O2 Integumentary /Anthropometric Characteristics: Palpation/Observation: Both legs are very edematous, left>right with fibrotic edema. There is an abrupt transition of the edema from distal calf up. Height 5'3.5 Weight 406.5 lbs (Weight confirmed today) A: Sitting surface to top of the head-36 B: Sitting surface to acromion-26 C: Back of hip to popliteal surface-20 D: Floor to popliteal surface-14 E: Acromion to acromion-17 F: Width of chest-20 G: Width of hips at widest point-23 at hips, 25 at outer thighs. HR: Sitting surface to axilla -19 HL: Elbow to metacarpo-phalangeal joint -14 I: Sitting surface to elbow (90 degrees)-10 Range of Motion and Joint Integrity: Range of Motion: Upper Quarter: within functional limits. Lower Quarter: Limited by obesity and edema. I could not adduct her legs to neutral. Muscle Performance: Strength: Upper Quarter: Not formally tested as she would not be able to self propel a manual wheelchair functional distances due to Chronic obstructive pulmonary disease and her body weight. Lower Quarter: MMT LOWER QUARTER Date: 10/31/2019 10/31/2019 HIP: Right Left Flexion 4 3- Internal Rotation 5 3- External Rotation 4 3 Knee: Right Left Extension 4 3- Ankle: Right Left Dorsiflexion 5 5 Sensation, Reflexes, and Nerve Integrity: Light Touch Sensation: Upper Quarter: Abnormal: Numbness 4th, 5th digits and thumb. Lower Quarter: Intact Neuromotor Function/Development: within normal limits Tone was assessed using the Modified Jennie Scale (MAS): The MAS is a test to measure spasticity during passive soft-tissue stretching. Scoring is as follows : 0=normal tone, 1=slight increase in muscle tone, 1+= slight increase in muscle tone, 2= more marked increase in muscle tone, 3= considerableincrease in muscle tone, 4= Affected part rigid in flexion or extension. Balance, Locomotion, and Gait: ?? Sitting balance: Able to sit unsupported. ?? Head control: Good head control, ?? Transfers: Straddles the footplate, WIDE base of support, rocks back and forth, HEAVY reliance onhand hold to push to standing. ?? Gait: Was able to ambulate part width of a room with a walker prior to a fall out of her wheelchair and sprained right wrist with ulnar neuropathy. ?? Wheelchair propulsion/management: Unable to self propel a manual chair but is independent with a power chair. Self-Care, Home Management, Work, and Leisure: Lives alone, independent with personal care. Assisted with showering. Prepares her own meals, does her own homemaking from wheelchair level. Consent: Radha consented to today's physical therapy evaluation, and she agreed to and understood the equipment recommendations and signed off on the Medicaid Addendum. Interventions completed today: Physical therapy today at 9:19-10:42 Total treatment time: 93 minutes. Timed code treatment minutes: 60 Interventions included: Evaluation: Wheelchair Management 60 min: Took seated measurements. Determined that Radha requires a much wider seat and wider footplate to support her edematous legs, but chair cannot be any wider at armrests in order to pass through doorways. Also, the environment she propels the chair in (to get to the [employer] van)is a very steep incline and the existing group 2 chair does not meet her needs. Discussed options at length, and determined that she does not meet Medicare coverage criteria for replacement, but does meet Medicaid's broader criteria since she needs a group 3 very heavy duty chairto get up the steep hill to her home. In consultation with FABIANO Cano from [employer] a wheelchair prescription was generated and Medicaid Addendum was reviewed with Radha and signed. Patient/family education: Topic: Explained insurance conundrum she is in: Existing chair breaks down because it is not rated for hill climbing she requires to get to her home from the [facility] bus. We will try to petition [place] Medicaid for this. Learner: patient Method: verbal and handout Barriers to Learning: none noted Outcome: verbalized understanding Team communication: FABIANO Cano from [employer] was present and participatedin this entire visit. A: Radha has significant mobility impairment due to morbid obesity, unmanaged lymphedema, fairly profound left leg weakness due to spinal stenosis, and reduced cardiopulmonary endurance due to Chronic obstructive pulmonary disease on continuous oxygen at 4l/min. She requires a power wheelchair for all of her mobility. There are several issues with her existing wheelchair: ?? Her existing chair is a group 2 power heavy duty chair, which is what she qualifies for under Medicare. This works sufficiently within her home, but does NOT have the climbing capacity to access herhome from the outside where there is a very steep entrance. Since her chair is only 3 years old we would not be able to replace it through Medicare, and even replacing it with the same type of chair would not solve the problem of the motors failing due to insufficient climbing capacity. Therefore, I recommend petitioning Medicaid, since a group 3 power chair would be within their coverage criteria since she cannot safely get to the transportation she uses to get to medical care. ?? Her leg support in the existing chair is poor. She has a large, edematous leg and limited strength on the left. Her leg splays out to the side and has crushed the lateral foam on the cushion, further causing her leg to splay out. She needs a wider more supportive seat, but a wider chair overall would not fit through doorways. Therefore a wider seat and narrower back would satisfy that need, and a wider footplate would allow her foot to be supported where it naturally falls. Warp Knitter Helper Goals: 8 weeks Radha will have a power chair that will provide the following: ?? She will be able to safely get to the [employer] van she uses to get to medical care. ?? Her left leg will be supported at neutral. Prognosis to reach these goals with the prescribed equipment is good. Barrier is funding. P: Treatment/intervention: PT will be provided by Physical Therapist Frequency: 1 times per 8 weeks (when her chair is ready for delivery) Intensity: 60 minutes here Duration: 1 visit Interventions may include: Wheelchair Fitting Further data: nothing to add Patient/family education: Care and maintenance. Discharge plan: When goals are met or progress plateaus. Thank you for this referral. Anca Oreilly, PT 10/31/2019 15:19 Cc: Referring Provider: Brandan Fabian MD Funding at [facility] Fax: [phone] WHEELCHAIR PRESCRIPTION 10/31/2019 Radha Masterson 1955 [address] [facility] [address] (home) Insurance Policy Number [place] Medicaid [id number] Medical/Surgical History: Past Medical History: Diagnosis Date ??? Allergic conjunctivitis ??? Asthma ??? Chronic headaches ??? Chronic respiratory failure with hypoxia and hypercapnia (HCC-CMS) ??? COPD (chronic obstructive pulmonary disease) ([facility]) ??? Depression ??? Femur fracture, left (HCC-CMS) 2005 ??? Hyperglycemia ??? Low back pain with sciatica 05/03/2014 ??? Morbid obesity ([facility]) ??? Multinodular goiter ??? DAVID treated with BiPAP ??? Pleural effusion 05/03/2014 ??? Right ventricular dysfunction ??? Sensorineural hearing loss, bilateral ??? Sprain of scapholunate ligament 03/21/2019 ??? Urinary incontinence ??? Varicose vein of leg Relevant Diagnosis: Diagnosis: Spinal Stenosis; Chronic Obstructive Pulmonary Disease; Left Leg Weakness; Wheelchair Dependent; Wheelchair Fitting Length of Medical Necessity: Lifetime of equipment Therapeutic Results Expected: ?? She will be able to safely get to the [employer] van she uses to get to medical care. ?? Her left leg will be supported at neutral. Functional Level: Non ambulatory. Cannot self propel a manual chair due to hand sprain, obesity and Chronic obstructive pulmonary disease. Client Measurements: Height 5'3.5 Weight 406.5 lbs A: Sitting surface to top of the head-36 B: Sitting surface to acromion-26 C: Back of hip to popliteal surface-20 D: Floor to popliteal surface-14 E: Acromion to acromion-17 F: Width of chest-20 G: Width of hips at widest point-23 at hips, 25 at outer thighs. HR: Sitting surface to axilla -19 HL: Elbow to metacarpo-phalangeal joint -14 I: Sitting surface to elbow (90 degrees)-10 Color [place] Component Wheelchair Description Justification Pot Room Tapper, style and model Group 3 Very Heavy Duty Power chair (Quantum 1450) Non ambulatory. Cannot operate a manual chair due to combined weight of chair and patient plus Chronic obstructive pulmonary disease with severely restricted pulmonary endurance. A Power operated vehicle will not fit in the home. She needs extra heavy duty due to her body weight. This chair was selected due to front wheel drive which will support her heavy legs over the drive wheels and will allow for a wider foot platform. Frame Size 24X18 Synergy Seat frame with 16.5 seat to floor height Per patient measurements Back 22 endomorph back canes (to reduce the armrest spacing 4 compared with the seat) Needs narrower armrest to fit through doorways. Seat Arm Style Height adjustable cantilever full length armrests Requires heavy hand hold to stand and transfer. Cantilver armrests will allow for narrower back. (wider hips/thighs would rest below the armrest surface) Front Rigging Heavy duty foot platform 17 wide X13 deep Because she cannot adduct her thighs due to obesity, she needs a wider foot platform to support her legs. Drive Wheels 14 flat free tires Standard Casters Wheel locks Cushion 24 X18 X4 thick bariatric cushion She needs 4 thick to achieve the seat to floor height that allows her to get back into the seat, but also get up out of the seat. She needs cushioning because she gets posterior thigh pain from pressure. Other Right in line joystick with height adjustable bracket Transit brackets Seat belt Group 24 batteries and rubber calender helper Needs lowered joystick so she does not hyperextend her wrist to access the joystick. She has a chronically sprained wrist. Uses [facility] van to get to medical care. Safety on the steep ramp to exit her home. To operate the chair. Positioning/Seating Intervention Height adjustable and angle adjustable lateral thigh supports and hardware with 4 X8 pad. To keep the weak left leg from splaying out. 20X20 general use posterior support To provide back support. She has lumbar stenosis. 10 headrest on removable hardware To provide safe neck support on the [employer] van. Need hardware thatcan be added to an after market back. Supplier: Assembly Instructions: Anca Oreilly, PT, DPT, ATP 10/31/2019 15:19 Plan ATTENDING PHYSICIAN: Your signature indicates you approve the therapy goals and plan of care outlined on this document dated 10/31/2019. It also indicates that you agree with the wheelchair prescription/recommendations. Thank you! Attending Physician Signature Date Anca Oreilly PT 10/31/2019 15:19 documented in this encounter Plan of Treatment Not on filedocumented as of this encounter Visit Diagnoses Not on filedocumented in this encounter Care Teams Engraver Automatic Relationship Specialty Start Date End Date Alphonso Murphy MD PCP - General 10/22/[address] [place] [id number] documented as of this encounter
--- OUTSIDE RECORDS SUMMARY | 2022-03-05 02:21 | XMS_ITS | Encounter Summary ---
:1955 Author Organization [facility] Address [address] [place] [id number] Care Team Providers Name Role Phone Unknown, Provider Primary Care Provider Sunitha Milligan MD Primary Care Provider Reason for Visit Reason Onset Date Comments Appointment Related 11/14/2015 Encounter Details Date Type Department Care Team Description 11/14/2015 Telephone [facility] Therapy, Appointnc nt Related Rehabilitation Therapy - Outpatient, [address] [id number] Social History Tobacco Use Types Packs/Day Years Used Date Never Assessed Sex Assigned at Date Recorded Not on file documented as of this encounter Miscellaneous Notes Telephone Encounter - Eulalia Degroot - 11/14/2015 1012 EDT [facility] - [address] [address] Person providing information? Radha Arrington: self Phone number: [phone] 1. Who recommended that you be seen in wheelchair clinic? Sunitha Milligan MD 2. What is your diagnosis (reason for needing a wheelchair)? COPD; Asthma 3. Have you seen your referring physician within the past 6 months for the diagnosis (reason you need a wheelchair)? yes 4. Reason for appointment new power chair 5. What type of chair are you currently using? scooter 6. How old is the wheelchair? 5 7. If less than 3 years old: What isn't working with the present chair? - 8. Do you still fit in this wheelchair? - If No: Why not? - 9. If being seen for a new wheelchair: what kind do you think you need (Manual, Power)? Power - withleg raiser 10. Where do you plan to use your wheelchair both 11. Do you anticipate any problems getting your new wheelchair in, out or around your home? All accessible 12. Is there a ramp to get into your home? yes 13. Do you have any skin breakdown on your buttocks caused by seating/cushion? no 14. Are you able to walk in your home, if so, include distance and device? 10ft 15. How do you transfer Stand Pivot 16. Do you need assistance for your transfers? COPD 17. Will anyone be with you at time of appt? yes 18. Approximate Height? 5'3 19. Approximate Weight? 410lb 20. Name of Medical Vendor? [employer] 21. Are you receiving Physical Therapy? Occupational Therapy? Speech-Language Treatment? No If Yes: Where? - 22. Are there any additional areas of function or concern that you would like help with today? - Memory? Self Care? Communication? Computer? Controlling your environment such as telephone, etc.? Visual Aids to help with reading, seeing when it's dark outside, etc.? 23. Do you use any equipment to help you with your dressing/other self care/computer/communication? - Is it meeting your needs? - What type of communication device? - Who prescribed/acquired for you? - 24. Do you have any other requests, comments, questions you would like to add prior to your appt? - 25. To whom should we send an additional questionnaire (if needed)? - [facility] - [address] [address] Telephone Intake Information for Scheduling NEW Patients for Therapy Referring Provider: Sunitha Milligan MD Script/referral MD office faxing Primary Insurance: Medicare A/B Secondary Insurance: Medicaid If Medicare: Have you received a letter from Medicare about the therapy cap? No Have you been seen in therapy since August of this year? No By whom? 0 How many visits have you had since August this year 0 Are you receiving any home health or [facility]NA services? No If the answer is YES -- contact VNA for prior authorization Date: Wednesday January 13, 2016 Therapist: Audrey Paez PT @ 9:00 Location: [facility] Name of Supplier: [employer] Name of Rep: Hayden @ 9:30 Reason For Appt: power wheelchair evaluation Pressure Mapping? no Eulalia Esteban Cox documented in this encounter Plan of Treatment Not on filedocumented as of this encounter Visit Diagnoses Not on filedocumented in this encounter Care Teams Rn Building Relationship Specialty Start Date End Date Unknown, Steffi, PCP - General 03/29/14 11/16/15 Sunitha Milligan MD PCP - General 11/17/15 11/18/[address] [place] [address] [place] [address] documented as of this encounter
--- OUTSIDE RECORDS SUMMARY | 2022-03-05 02:21 | XMS_ITS | Encounter Summary ---
:1955 Author Organization [facility] Address [address] [place] [address] Care Team Providers Name Role Phone Unavailable Primary Care Provider Unavailable Encounter Details Date Type Department Care Team Description 04/02/2011 Results Only [facility] Nataly Trotter MD Laboratory Services - [address] [place] [address] [address] [place] [address] [phone] Social History Tobacco Use Types Packs/Day Years Used Date Never Assessed Sex Assigned at Date Recorded Not on file documented as of this encounter Plan of Treatment Not on filedocumented as of this encounter Procedures Procedure Name Priority Date/Time Associated Diagnosis Comme nts PAP TEST- RESULT Routine 04/02/2011 0:00 EDT Resu lts for this ONLY procedure are i n the results section. documented in this encounter Results PAP TEST- RESULT ONLY (04/02/2011 0:00 EDT) Pathology Report: CYTOPATHOLOGY REPORT ? [facility] ? LAB Reports generated via electr onic interface contain original data; ? however they are lacking the format of the original report. ? Caution should be taken when reading/interpreting unformatted reports. ? Name: ? JOHAN, CYN A ? Accession #: ? [id number] ? : ? 1955 (Age: 55) ??F ?Collect Date: ? 04/02/2011 ? Location: ? [facility] ? R eceive Date: ? 04/05/2011 ? Provider: HARIKA TROTTER MD ? Copy to: ? Final Report ? SPECIMEN ADEQUACY ? Satisfactory for Eval uation ? - transformation zone compon ent absent ? GENERAL CATEGORIZATION ? Negative for Intraepi thelial Lesion or Malignancy ? Menstural/ Status: ??Post Menopausal ? Specimen/Source: ??Pap Test, Cervix/Endocervix, ThinPrep Imaging System with ? manual evaluation ? Document reviewed and electr onically signed by: ? Juan Stumler, CT( CP) ? Report ??Date: 08/25/ 2011 15:30 ? HPV with Pap Test ? Date Ordered: ? 0 04/08/2011 ? Status: ?? Signed Out ?Date Complete: ? 04/13/2011 ? By: ??System Interface ? Date Reported: ? 04/13/2011 ? Interpretation ? RESULT: Negative for HPV typ es 16, 18, 31, 33, 35, 39, 45, 51, 52, ? 56, 58, 59, and 68. ? Comments ? Document reviewed and electr onically signed by: ? System Interface ? Report date: 04/13/ 11 ? By the signature above, the attending physician certifies that he/she has ? personally conducted a gross and/or microscopic examination of the described ? specimens and rendered or co nfirmed the above diagnosis. ? End of Report ? Specimen Performing Organization Address City/State/ZIP Code Phon e Number [facility] [address] [place] [address] SERVICES JAMILA DILLARD [address] [address] documented in this encounter Visit Diagnoses Not on filedocumented in this encounter
--- OUTSIDE RECORDS SUMMARY | 2022-03-05 02:21 | XMS_ITS | Encounter Summary ---
:[address] [facility] Address [address] [place] [address] Care Team Providers Name Role Phone Alphonso Murphy MD Primary Care Provider [phone] Reason for Visit Reason Onset Date Comments Appointment Related 10/29/2019 Encounter Details Date Type Department Care Team Description 10/29/2019 Telephone [facility] Anca Oreilly, Lawrence ointment Related Rehabilitation Therapy - PT [address] [id number] [phone] Social History Tobacco Use Types Packs/Day Years Used Date Never Assessed Sex Assigned at Date Recorded Not on file documented as of this encounter Miscellaneous Notes Telephone Encounter - Anca Oreilly, PT - 10/29/2019 1314 EDT Radha is scheduled to be evaluated for a new power wheelchair on 10/31/2019. The last time I worked with her she was on supplemental oxygen, placing her in the high risk pool for the coronavirus outbreak. I left a message asking if she should reschedule to a later date. Anca Oreilly, PT documented in this encounter Plan of Treatment Not on filedocumented as of this encounter Visit Diagnoses Not on filedocumented in this encounter Care Teams Nuclear Station Operator Relationship Specialty Start Date End Date Alphonso Murphy MD PCP - General 10/22/[address] [place], [place] [address] [address] documented as of this encounter
--- OUTSIDE RECORDS SUMMARY | 2022-03-05 02:21 | XMS_ITS | Clinical Summary ---
:1955 Author Organization [facility] Address [address] [place] [address] Care Team Providers Name Role Phone Alphonso Murphy MD Primary Care Provider [phone] Medications Medication Sig Dispensed Refills Start Date End Date Status BUPROPION HCL Take by mouth. 0 A ctive (WELLBUTRIN ORAL) POT BICARB/POTASSIUM Take by mouth. 0 Active CIT/CA (POTASSIUM BICARBONATE ORAL) MAGNESIUM OXIDE/MAG Take by mouth. 0 Active AA CHELATE (MAGNESIUM, OXIDE/AA CHELATE, ORAL) FUROSEMIDE (LASIX Take 20 mg by mouth 0 Active ORAL) daily. ALBUTEROL INHL Inhale as directed. 0 Active ascorbic acid, Take by mouth. 0 Active vitamin C, 1,000 mg tablet aspirin 325 mg tablet Take 325 mg by 0 Active - study supplied mouth daily. budesonide-formoterol Inhale as directed 0 Active HFA (SYMBICORT) 2 times daily. 160-4.5 mcg/actuation HFA aerosol inhaler inhaler busPIRone (BUSPAR) 5 Take 5 mg by mouth 0 Active mg tablet 2 times daily. citalopram (CELEXA) Take 20 mg by mouth 0 Active 20 mg tablet daily. clotrimazole Apply topically 2 0 Active (LOTRIMIN) 1 % cream times daily. fluticasone by nasal route. 0 Ac tive propionate (FLONASE NASAL) gabapentin Take 100 mg by 0 Acti ve (NEURONTIN) 100 mg mouth 3 times capsule daily. ipratropium-albuteroL Take 3 mL by 0 Active (DUONEB) 0.5 mg-3 nebulization 4 mg(2.5 mg base)/3 mL times daily. nebulizer solution ketotifen (ZADITOR) Place 1 Drop into 0 Active 0.025 % (0.035 %) both eyes 2 times ophthalmic solution daily. metFORMIN Take 1,000 mg by 0 Act david (GLUCOPHAGE) 1,000 mg mouth 2 times tablet daily. nystatin (MYCOSTATIN) Apply topically 2 0 Active powder times daily. potassium chloride CR Take 10 mEq by 0 Active (KLOR-CON) 10 mEq mouth daily. tablet extended release silver sulfaDIAzine Apply topically 2 0 Active (SILVADENE) 1 % cream times daily. triamcinolone Apply topically 2 0 Active (KENALOG) 0.1 % cream times daily. Active Problems Patient Care Coordination Note Formatting of this note might be differe nt from the original. Verified non ACO status via Medicaid web trace: [id number] No additional problems on file Surgical History Surgery Date Site/Laterality Comments TOTAL KNEE ARTHROPLASTY 08/15/2004 - 08/14/2005 Left re vised 2 times FASCIOTOMY Medical History Medical History Date Comments COPD (chronic obstructive pulmonary disease) ([facility] ([facility]) Asthma Femur fracture, left ([facility]) ([facility]) 2005 Hyperglycemia DAVID treated with BiPAP Allergic conjunctivitis Sprain of scapholunate ligament 03/21/2019 Pleural effusion 05/03/2014 Chronic respiratory failure with hypoxia and hypercapnia ([facility] ([facility]) Depression Varicose vein of leg Low back pain with sciatica 05/03/2014 Sensorineural hearing loss, bilateral Morbid obesity ([facility]) ([facility]) Multinodular goiter Chronic headaches Urinary incontinence Right ventricular dysfunction Social History Tobacco Use Types Packs/Day Years Used Date Never Assessed Sex Assigned at Date Recorded Not on file Last Filed Vital Signs Vital Sign Reading Time Taken Comments Blood Pressure - - Pulse 84 01/13/2016 0939 EDT Temperature - - Respiratory Rate - - Oxygen Saturation 96% 01/13/2016 0939 EDT on 2 L of O2 Inhaled Oxygen Concentration - - Weight - - Height - - Body Mass Index - - Plan of Treatment Not on file Insurance Payer Benefit Plan / Subscriber ID Effective Phone Address T e Group Dates [facility] [id number] 2019-Pres [address] [facility] [id number] [address] [address] [place] [id number] 2012-Pres [address] Medicaid [place] ent [facility] [id number] Radha Masterson Personal/Family Self [address] [place] [address] Radha Masterson Personal/Family Self [address] [place] [address] Radha Masterson Personal/Family Self [address] [place] [address] Radha Masterson Personal/Family Self [address] [place] [address] Radha Masterson Personal/Family Self [address] [place] [address] Radha Masterson Personal/Family Self [address]) [place] [address] Radha Masterson Personal/Family Self 1955 [address]Home) [place] [address] Care Teams Special Education Teaching Assistant Relationship Specialty Start Date End Date Alphonso Murphy MD PCP - General 10/22/[address] [place] [address] [place] [address]
--- OUTSIDE RECORDS SUMMARY | 2022-03-05 02:21 | XMS_ITS | Encounter Summary ---
:1955 Author Organization [facility] Address [address] [place] [address] Care Team Providers Name Role Phone Alphonso Murphy MD Primary Care Provider [phone] Reason for Visit Reason Onset Date Comments Appointment Related 01/22/2020 Encounter Details Date Type Department Care Team Description 01/22/2020 Telephone [facility] Therapy, Physical Appo intment Related Rehabilitation Therapy - [address] [address] Social History Tobacco Use Types Packs/Day Years Used Date Never Assessed Sex Assigned at Date Recorded Not on file COVID-19 Exposure Response Date Recorded In the last month, have you been in contact with No / Unsure 01/15/2020 12:43 EDT someone who was confirmed or suspected to have Coronavirus / COVID-19? documented as of this encounter Miscellaneous Notes Telephone Encounter - Juli Roger MA - 01/22/2020 1500 EDT I spoke with the patient and reminded them of their wheelchair clinic appointment, to occur in two business days time here at [facility]. She confirmed her availability for this date. Juli Roger MA 01/22/2020 15:01 documented in this encounter Plan of Treatment Not on filedocumented as of this encounter Visit Diagnoses Not on filedocumented in this encounter Care Teams Gold Miner Relationship Specialty Start Date End Date Alphonso Murphy MD PCP - General 10/22/[address] [place] [address] documented as of this encounter
--- OUTSIDE RECORDS SUMMARY | 2022-03-05 02:21 | XMS_ITS | Encounter Summary ---
:1955 Author Organization [facility] Address [address] [place] [address] Care Team Providers Name Role Phone Alphonso Murphy MD Primary Care Provider [phone] Encounter Details Date Type Department Care Team Description 04/28/2020 Plan of Care Documentation [facility] Rehabilitation Therapy [address] [id number] Social History Tobacco Use Types Packs/Day Years Used Date Never Assessed Sex Assigned at Date Recorded Not on file documented as of this encounter Progress Notes Anca Oreilly, PT - 05/23/2020 1631 EDT Outpatient Rehab Plan of Care REHABILITATION THERAPIES [facility] [address] [address] Physical Therapy Initial Evaluation Note Wheelchair Clinic Date of Service: 04/28/2020 Reason for Referral: Diagnosis: Spinal Stenosis; Wheelchair Fitting Date of Onset: 03/20/20 Referring Provider: Alphonso Murphy MD Precautions: On Continuous O2; History o f DVT Session #: 1 Subjective: Radha reports that she likes the left lateral thigh support she got with the new wheelchair in January, but now the right leg is doing the same thing coming off of the edge of the seat. She also began leaning to the right. She had to replace the right armrest because she was leaning on it too hard. Chair does not have transit brackets. RCT van has difficulty tying the chair down. Pain:Pain reduction is not a goal of therapy. Patient???s goals for treatment: To make changes to her new wheelchair so she does not lean to the right and her right leg does not fall off of the side of the seat. Objective: Patient Profile: Radha Masterson is a 65 y.o. female with lumbar spinal stenosis, obesity, and pulmonary disease on continuous supplemental oxygen was fitted to a new power chair in January of this year. She presenting to physical therapy for a seating assessment because she leans to one side in the chair andher right leg falls off the side of the chair. Caregiver Support: Lives alone but her grandchildren are in and out. Home Environment:Type of home: Single level Ramp access available: yes Stairs: no Turning radius in the home: Existing chair fits throughout the home. Narrowest door width patient needs to access in home: Reports she just has enough room to get the chair through doorways. Current wheelchair: ?? Brand/style of primary wheelchair: [employer]0 bariatric heavy duty power chair ?? Age of wheelchair: January 24, 2019 ?? Cushion style/age: [facility] general use cushion ?? Other chair adaptations: Left lateral thigh support 4X8 ?? Posture in current equipment: Legs are splayed. The right leg hangs over the edge of the seat. Radha leans her trunk to the right. (NOTE, able to hold her trunk vertical when she is sitting on the edge of a mat. Only leans in the wheelchair) ?? The patient currently sits in wheelchair all day. ?? Transportation: Type of vehicle: [facility] [employer] Vehicle adaptations (car topper, ramp, lift): Strap tie downs. NOTE, existing chair does not have transit brackets as ordered on the original wheelchair order. Prior Level of Function: Used to walk short distances with a rollator walker. Has not walked for several years. Medical/Surgical History: Current: Spinal Stenosis; wheelchair dependent Radha does not have a problem list on file. Radha has a past medical history of Allergic conjunctivitis, Asthma, Chronic headaches, Chronic respiratory failure with hypoxia and hypercapnia ([facility]), COPD (chronic obstructive pulmonary disease) ([facility]), Depression, Femur fracture, left ([facility]) (2005), Hyperglycemia, Low back pain with sciatica (05/03/2014), Morbid obesity ([facility]), Multinodular goiter, DAVID treated with BiPAP, Pleural [...] sulfadiazine, and triamcinolone. Arousal, Attention, and Cognition: No problem noted. Cardiopulmonary: Not evaluated as this is not relevant to this intervention. Integumentary /Anthropometric Characteristics: Palpation/Observation: Stage III leg edema bilaterally left >right. Patient width at widest point in relaxed sitting (with legs splayed) is 27. With legs adducted as far as possible, overall width is 24. Range of Motion and Joint Integrity: Range of Motion: Upper Quarter: Not evaluated as this is not relevant to this intervention. Lower Quarter: Limited thigh adduction due to edema, but can be brought close to neutral. Strength: Upper Quarter: Not evaluated as this is not relevant to this intervention. Lower Quarter: Left > right lower extremity weakness. Difficulty actively adducting her legs. Cansupport herself in a crouched position but cannot stand upright. Sensation, Reflexes, and Nerve Integrity: Light Touch Sensation: Not evaluated as this is not relevant to this intervention. Has sensation in the location of lateral thighs. Neuromotor Function/Development: No spasticity noted. Balance, Locomotion, and Gait: ?? Sitting balance: Sitting at the edge of a mat, she sits upright and stably. ?? Head control: good ?? Transfers: Squat/pivot ?? Gait: Non ambulatory ?? Wheelchair propulsion/management: Independent power chair propulsion. Self-Care, Home Management, Work, and Leisure: Lives alone. Out and about in the community geam to dusk. Consent: Radha consented to today's physical therapy evaluation. Interventions completed today: Physical therapy today at 11:56 Total treatment time: 45 minutes. Timed code treatment minutes: 15 Interventions included: Wheelchair Management 15 min: ?? Assessed the integrity of the wheelchair cushion, which is intact and not crushed on one side. ?? Assessed posture in the chair. ?? Took measurement of overall knee width. ?? Determined that she sits to the right of the seat and that is why the right leg falls off of the seat. When she is at midline she does not have trunk lean, but the right leg still splays out. ?? Recommend the addition of a 4X8 right lateral thigh support with multi adjustable mounting hardware similar to what is on the left. ?? Also, Radha never got the transit brackets that were originally prescribed with this chair. She needs them on the public transit van she uses to get to medical care. Patient/family education: Topic: Explained that trunk does not need to be supported if she is at midline in the chair. If the addition of the right lateral thigh support does not help, may need to inch out the thigh supports sothey are not so close. Learner: patient Method: verbal and demonstration Barriers to Learning: none noted Outcome: verbalized understanding Team communication: Message to FABIANO Cano from [employer]...Exactly Seating and Mobility following this visit. A: Radha received her new power chair in January. Initially she was satisfied with the fit, but now she notices that her right thigh falls off of the seat and she is leaning to the right. I feel that she has gained some weight and legs are more edematous, so she inches her hips to the right of the seat more to minimize the pressure on her left lateral thigh causing the right leg to further fall off of the seat and for her to lean to the right. I feel that the addition of a right lateral thigh support PLUS possibly adjusting the position of the supports should place her more at midline and correct the trunk leaning. [facility] Goals: 8 weeks ?? Radha will sit in her wheelchair with both legs well positioned so that her feet remain on the footplate. ?? She will not lean to one side in her chair. P: Treatment/intervention: PT will be provided by Physical Therapist ONLY if she is not satisfied with the outcome after the supplier delivers and sets up the lateral thigh supports. Frequency: 1 times per 8 weeks Intensity: 60 minutes Duration: 1 visit Interventions may include: Wheelchair fitting Further data: Supplier to do the initial fitting / Patient/family education: nothing to add Discharge plan: When goals are met or progress plateaus. Plan ATTENDING PHYSICIAN: Your signature indicates you approve the therapy goals and plan of care outlined on this document dated 04/28/2020. It also indicates that you agree with the wheelchair recommendations written in bold. Thank you! Attending Physician Signature Date Anca Oreilly, LONNIE 04/28/2020 13:19 documented in this encounter Plan of Treatment Not on filedocumented as of this encounter Visit Diagnoses Not on filedocumented in this encounter Care Teams Terrazzo Finisher Helper Relationship Specialty Start Date End Date Alphonso Murphy MD PCP - General 10/22/19 [address] [place] [address] documented as of this encounter
--- OUTSIDE RECORDS SUMMARY | 2022-03-05 02:21 | XMS_ITS | Encounter Summary ---
:[address] [facility] Address [address] [place] [address] Care Team Providers Name Role Phone Brandan Fabian MD Primary Care Provider Unavailable Reason for Visit Reason Onset Date Comments Appointment Related 02/13/2016 Encounter Details Date Type Department Care Team Description 02/13/2016 Telephone [facility] Therapy, Appointme nt Related Rehabilitation Therapy - Outpatient, [address] [address] Social History Tobacco Use Types Packs/Day Years Used Date Never Assessed Sex Assigned at Date Recorded Not on file documented as of this encounter Miscellaneous Notes Telephone Encounter - Eulalia Degroot - 02/13/2016 1101 EDT Patient needs to cancel her Wheelchair Clinic appointment on 02/19, as the equipment she was to trail will not be in at that time. I have left a message asking the patient to call back and reschedule. I have advised her that the 02/19 appointment has been canceled. Patient was advised I will not be in theoffice Tuesday or Tuesday. documented in this encounter Plan of Treatment Not on filedocumented as of this encounter Visit Diagnoses Not on filedocumented in this encounter Care Teams Management Engineer Relationship Specialty Start Date End Date Brandan Fabian MD PCP - General 11/19/15 10/21/19 documented as of this encounter
--- OUTSIDE RECORDS SUMMARY | 2022-03-05 02:21 | XMS_ITS | Encounter Summary ---
:1955 Author Organization [facility] Address [address] [place] [address] Care Team Providers Name Role Phone Brandan Fabian MD Primary Care Provider Unavailable Encounter Details Date Type Department Care Team Description 01/13/2016 Hospital Encounter [facility]- Betty Fabian MD [facility] [address] [facility] [address] [place] [id number] Social History Tobacco Use Types Packs/Day Years Used Date Never Assessed Sex Assigned at Date Recorded Not on file documented as of this encounter Medications at Time of Discharge Medication Sig Dispensed Refills Start Date End Date ALBUTEROL INHL Inhale as directed. 0 BUPROPION HCL (WELLBUTRIN Take by mouth. 0 ORAL) FUROSEMIDE (LASIX ORAL) Take 20 mg by mouth 0 daily. MAGNESIUM OXIDE/MAG AA Take by mouth. 0 CHELATE (MAGNESIUM, OXIDE/AA CHELATE, ORAL) POT BICARB/POTASSIUM Take by mouth. 0 CIT/CA (POTASSIUM BICARBONATE ORAL) documented as of this encounter Discharge Disposition Disposition Code Departure Means Destination Home or Self Half-Way documented in this encounter Plan of Treatment Not on filedocumented as of this encounter Visit Diagnoses Not on filedocumented in this encounter Care Teams Reversing Mill Roller Relationship Specialty Start Date End Date Brandan Fabian MD PCP - General 11/19/15 10/21/19 documented as of this encounter
--- OUTSIDE RECORDS SUMMARY | 2022-03-05 02:21 | XMS_ITS | Encounter Summary ---
:1955 Author Organization [facility] Address [address] [place] [address] Care Team Providers Name Role Phone Alphonso Murphy MD Primary Care Provider [phone] Reason for Visit Reason Onset Date Comments Appointment Related 04/24/2020 Encounter Details Date Type Department Care Team Description 04/24/2020 Telephone [facility] Therapy, Physical Appo intment Related Rehabilitation Therapy - [address] [address] Social History Tobacco Use Types Packs/Day Years Used Date Never Assessed Sex Assigned at Date Recorded Not on file documented as of this encounter Miscellaneous Notes Telephone Encounter - Juli Roger MA - 04/24/2020 8192 EDT I spoke with the patient and reminded them of their wheelchair clinic appointment, to occur in two business days time at [facility]. She stated she would call [facility] to secure her ride. I told today would be her48 hour notice that they require. Juli Roger MA 04/24/2020 15:43 documented in this encounter Plan of Treatment Not on filedocumented as of this encounter Visit Diagnoses Not on filedocumented in this encounter Care Teams Low Altitude Air Defense Officer Relationship Specialty Start Date End Date Alphonso Murphy MD PCP - General 10/22/[address] [place] [address] documented as of this encounter
--- OUTSIDE RECORDS SUMMARY | 2022-03-05 02:21 | XMS_ITS | Encounter Summary ---
:1955 Author Organization [facility] Address [address] [place] [address] Care Team Providers Name Role Phone Alphonso Murphy MD Primary Care Provider [phone] Reason for Visit Reason Onset Date Comments Appointment Related 10/29/2019 Encounter Details Date Type Department Care Team Description 10/29/2019 Telephone [facility] Therapy, Physical Appo intment Related Rehabilitation Therapy - [address] [address] Social History Tobacco Use Types Packs/Day Years Used Date Never Assessed Sex Assigned at Date Recorded Not on file documented as of this encounter Miscellaneous Notes Telephone Encounter - Juli Roger MA - 10/29/2019 1551 EDT Patient called in regards to upcoming wheelchair clinic appointment to be held on 10/31/2019. She wasadvised that she will need to wear a mask the whole time that she is here and that only one family member can be with her at the time of the appointment. She agreed. Juli Roger MA 10/29/2019 15:53 documented in this encounter Plan of Treatment Not on filedocumented as of this encounter Visit Diagnoses Not on filedocumented in this encounter Care Teams Humanities Division Chair Relationship Specialty Start Date End Date Alphonso Murphy MD PCP - General 10/22/[address] [place] [address] documented as of this encounter
--- OUTSIDE RECORDS SUMMARY | 2022-03-05 02:21 | XMS_ITS | Encounter Summary ---
:1955 Author Organization [facility] Address [address] [place] [address] Care Team Providers Name Role Phone Brandan Fabian MD Primary Care Provider Unavailable Reason for Visit Reason Onset Date Comments Appointment Related 03/29/2016 Encounter Details Date Type Department Care Team Description 03/29/2016 Telephone [facility] Therapy, Appointtx nt Related Rehabilitation Therapy - Outpatient, [address] [address] Social History Tobacco Use Types Packs/Day Years Used Date Never Assessed Sex Assigned at Date Recorded Not on file documented as of this encounter Miscellaneous Notes Telephone Encounter - Eulalia Degroot - 03/29/2016 1550 EDT Phone call from Hari Jackson at [facility]: due to changes in medicare [facility] will be unable to provide mobility equipment to this patient. Hari has called the patient to let her know that we will need to cancel her Wheelchair Clinic appointment tomorrow. documented in this encounter Plan of Treatment Not on filedocumented as of this encounter Visit Diagnoses Not on filedocumented in this encounter Care Teams Shellfish Sorter Relationship Specialty Start Date End Date Brandan Fabian MD PCP - General 11/19/15 10/21/19 documented as of this encounter
--- OUTSIDE RECORDS SUMMARY | 2022-03-05 02:21 | XMS_ITS | Encounter Summary ---
:1955 Author Organization [facility] Address [address] [place] [address] Care Team Providers Name Role Phone Brandan Fabian MD Primary Care Provider Unavailable Reason for Visit Reason Onset Date Comments Appointment Related 07/30/2019 Encounter Details Date Type Department Care Team Description 07/30/2019 Telephone [facility] Therapy, Physical Appo intment Related Rehabilitation Therapy - [address] [phone] Social History Tobacco Use Types Packs/Day Years Used Date Never Assessed Sex Assigned at Date Recorded Not on file documented as of this encounter Miscellaneous Notes Telephone Encounter - Juli Roger MA - 07/30/2019 1256 EST VM message asking that patient call back into the wheelchair clinic to do the necessary intake in order to be scheduled to be seen by the wheelchair clinic. Juli Roger MA 07/30/2019 12:58 documented in this encounter Plan of Treatment Not on filedocumented as of this encounter Visit Diagnoses Not on filedocumented in this encounter Care Teams Small Arms Artillery Repairer Relationship Specialty Start Date End Date Brandan Fabian MD PCP - General 11/19/15 10/21/19 documented as of this encounter
--- OUTSIDE RECORDS SUMMARY | 2022-03-05 02:21 | XMS_ITS | Encounter Summary ---
:1955 Author Organization [facility] Address [address] [place] [address] Care Team Providers Name Role Phone Alphonso Murphy MD Primary Care Provider [phone] Reason for Visit Reason Onset Date Comments Appointment Related 03/31/2020 Encounter Details Date Type Department Care Team Description 03/31/2020 Telephone [facility] Therapy, Physical Appo intment Related Rehabilitation Therapy - [address] [address] Social History Tobacco Use Types Packs/Day Years Used Date Never Assessed Sex Assigned at Date Recorded Not on file documented as of this encounter Miscellaneous Notes Telephone Encounter - Juli Roger MA - 03/31/2020 1531 EDT Calling pt to confirm upcoming wheelchair appointment and need to cancel and reschedule as she has pneumonia at this time. Rescheduled to 04/28/20. Juli Roger MA 03/31/2020 15:33 documented in this encounter Plan of Treatment Not on filedocumented as of this encounter Visit Diagnoses Not on filedocumented in this encounter Care Teams Business Area Director Relationship Specialty Start Date End Date Alphonso Murphy MD PCP - General 10/22/[address] [place] [address] documented as of this encounter
--- OUTSIDE RECORDS SUMMARY | 2022-03-05 02:21 | XMS_ITS | Encounter Summary ---
:1955 Author Organization [facility] Address [address] [place] [address] Care Team Providers Name Role Phone Brandan Fabian MD Primary Care Provider Unavailable Reason for Visit Reason Onset Date Comments Appointment Related 02/20/2016 Encounter Details Date Type Department Care Team Description 02/20/2016 Telephone [facility] Therapy, Appointme nt Related Rehabilitation Therapy - Outpatient, [address] [address] Social History Tobacco Use Types Packs/Day Years Used Date Never Assessed Sex Assigned at Date Recorded Not on file documented as of this encounter Miscellaneous Notes Telephone Encounter - Eulalia Degroot - 02/20/2016 1045 EDT Left message asking patient to call back to confirm Wheelchair Clinic equipment trial appointment scheduled for 03/30/16 @ RTC @ 2:30. documented in this encounter Plan of Treatment Not on filedocumented as of this encounter Visit Diagnoses Not on filedocumented in this encounter Care Teams Ore Miner Blasting Relationship Specialty Start Date End Date Brandan Fabian MD PCP - General 11/19/15 10/21/19 documented as of this encounter
--- OUTSIDE RECORDS SUMMARY | 2022-03-05 02:21 | XMS_ITS | Encounter Summary ---
:1955 Author Organization [facility] Address [address] [place] [address] Care Team Providers Name Role Phone Alphonso Murphy MD Primary Care Provider [phone] Encounter Details Date Type Department Care Team Description 03/23/2020 Lab Requisition [facility] Outr Resulting Lab, Pathology & Laboratory Provider [facility] [address] [place], [place] [address] Social History Tobacco Use Types Packs/Day Years Used Date Never Assessed Sex Assigned at Date Recorded Not on file documented as of this encounter Plan of Treatment Not on filedocumented as of this encounter Procedures Procedure Name Priority Date/Time Associated Comments Diagnosis DO NOT ORDER Today 03/23/2020 16:45 Results for this STANDALONE - BROAD EDT procedure are in COVID TEST the results section. COVID-19 TESTING Routine 03/23/2020 16:45 Results for this EDT procedure are i n the results section. documented in this encounter Results DO NOT ORDER STANDALONE - BROAD COVID TEST (03/23/2020 16:45 EDT) COVID-19 rt-PCR NEGATIVE Negative [facility] Result Comment: LABORATORY 2019-novel Coronavirus (2019 -nCoV) not detected by the qRT-PCR assay. Consider testing for other respiratory viruses or re-collecting for 2019-nCoV testing. Note: Optimum timing for peak viral levels du ring infections caused by 20 -nCoV have not been determined. Collection of multiple specimens from the same patient may be necessary to detect the virus. Limitations Positive results are indicat david of active infection with SARS-CoV-2 but do not rule out bacterial infection or co-infection with other viruses. The agent detected may not be the definite cause of diseas e. In addition, detection of viral RNA may not indicate the presence of infectious virus or that SARS-CoV-2 is the causative agent for clinical symptoms. Negative results do not prec lude SARS-CoV-2 infection and should not be used as the sole basis for patient management decisions. Negative results must be combined with clinical observations, patient his tory, and epidemiological in formation. False negative results may also occur if amplification inhibitors are present in the specimen or if inadequate numbers of organisms are present in the specimen. Op timum specimen types and praveen ing for peak viral levels during infections caused by SARS-CoV-2 have not been fully determined. Collection of multiple specimens (types and time points) from the same patient may be necessary to detect the virus. The test was validated for u se with upper respiratory specimens obtained via nasopharyngeal or oropharyngeal swabs in VTM, UTM, M4, M5, M6, saline, and MTM media. The performance of this test has not be en established for other spe cimens. Specimens collected using other FDA recommended Specimen Collection Materials listed in the FDA COVID-19 Diagnostic Technologies communication (November 08, 2019) are pr ocessed with the caveat that they were not all validated for use with this test and the result must be interpreted in this context. Furthermore, a false negative results may occur if a specimen is improperly collected, transported or handled. If the virus mutates in the RT-PCR target region, SARS-CoV-2 may not be detected or may be detected less predictably. Inhibitors or other types of interference may produce a false negative result. An interference study evaluating the effect of common cold medications was not performed. This test is not FDA-cleared but its performance characteristics were established by our CLIA-certified, CAP-accredited, high complexity laboratory in accordance with CLIA regulations, College of Americ an Pathologists (CAP) guidel yarelis (Nov 01, 2019), and FDA guidance (Oct 13, 2019). This test is only for use un vivienne the Food and Drug Administration's Emergency Use Authorization. Specimen Swab - Entire nasopharynx (body structur e) Performing Organization Address City/State/ZIP Code Phon e Number [facility] [place], [place] COVID-19 TESTING (03/23/2020 16:45 EDT) Pathologist [facility] COVID-19 rt-PCR NEGATIVE Negative [facility] Result Comment: LABORATORY 2019-novel Coronavirus (2019 -nCoV) not detected by the qRT-PCR assay. Consider testing for other respiratory viruses or re-collecting for 2019-nCoV testing. Note: Optimum timing for peak viral levels du ring infections caused by 20 -nCoV have not been determined. Collection of multiple specimens from the same patient may be necessary to detect the virus. Limitations Positive results are indicat david of active infection with SARS-CoV-2 but do not rule out bacterial infection or co-infection with other viruses. The agent detected may not be the definite cause of diseas e. In addition, detection of viral RNA may not indicate the presence of infectious virus or that SARS-CoV-2 is the causative agent for clinical symptoms. Negative results do not prec lude SARS-CoV-2 infection and should not be used as the sole basis for patient management decisions. Negative results must be combined with clinical observations, patient his tory, and epidemiological in formation. False negative results may also occur if amplification inhibitors are present in the specimen or if inadequate numbers of organisms are present in the specimen. Op timum specimen types and praveen ing for peak viral levels during infections caused by SARS-CoV-2 have not been fully determined. Collection of multiple specimens (types and time points) from the same patient may be necessary to detect the virus. The test was validated for u with upper respiratory specimens obtained via nasopharyngeal or oropharyngeal swabs in VTM, UTM, M4, M5, M6, saline, and MTM media. The performance of this test has not be en established for other spe cimens. Specimens collected using other FDA recommended Specimen Collection Materials listed in the FDA COVID-19 Diagnostic Technologies communication (November 08, 2019) are pr ocessed with the caveat that they were not all validated for use with this test and the result must be interpreted in this context. Furthermore, a false negative results may occur if a specimen is improperly collected, transported or handled. If the virus mutates in the RT-PCR target region, SARS-CoV-2 may not be detected or may be detected less predictably. Inhibitors or other types of interference may produce a false negative result. An interference study evaluating the effect of common cold medications was not performed. This test is not FDA-cleared but its performance characteristics were established by our CLIA-certified, CAP-accredited, high complexity laboratory in accordance with CLIA regulations, College of Americ an Pathologists (CAP) guidel yarelis (Nov 01, 2019), and FDA guidance (Oct 13, 2019). This test is only for use un vivienne the Food and Drug Administration's Emergency Use Authorization. Performing Lab [facility] LABORATORY SERVICES Specimen Swab Performing Organization Address City/State/ZIP Code Phon e Number [facility] [address] [place] [address] SERVICES [facility] [place], [place] documented in this encounter Visit Diagnoses Not on filedocumented in this encounter Care Teams Watch Caser Relationship Specialty Start Date End Date Alphonso Murphy MD PCP - General 10/22/19 [address] [place], [place] [address] documented as of this encounter
--- OUTSIDE RECORDS SUMMARY | 2022-03-05 02:21 | XMS_ITS | Encounter Summary ---
:1955 Author Organization [facility] Address [address] [place] [address] Care Team Providers Name Role Phone Brandan Fabian MD Primary Care Provider Unavailable Reason for Visit Reason Onset Date Comments Appointment Related 09/18/2019 Encounter Details Date Type Department Care Team Description 09/18/2019 Telephone [facility] Therapy, Appointme nt Related Rehabilitation Therapy - Outpatient, [address] [phone] Social History Tobacco Use Types Packs/Day Years Used Date Never Assessed Sex Assigned at Date Recorded Not on file documented as of this encounter Miscellaneous Notes Telephone Encounter - Deonte Guy MA - 09/18/2019 1338 EST [facility] - [address] [address] Person providing information? Radha Guardian: Self Phone number: [phone] 1. Who recommended that you be seen in wheelchair clinic? Marie @ [facility] a. Script/referral: office deborah coker Referral date: 08/2019 2. What is your diagnosis (reason for needing a wheelchair)? Left Leg Gives Out 3. Have you seen your referring physician within the past 6 months for the diagnosis (reason you need a wheelchair)? Yes 4. Reason for appointment? Power wheelchair 5. What type of chair are you currently using? Power wheelchair 6. How old is the wheelchair? 4 Years a. If less than 3 years old: What isn't working with the present chair? Motor Continues to Quit due to max weight 7. Do you still fit in this wheelchair? No, Why not? At Max Weight 8. Where do you plan to use your wheelchair? For all activities of daily living in home and community 9. Do you anticipate any problems getting your new wheelchair in, out or around your home? No 10. Is there a ramp to get into your home? Yes 11. Do you have any skin breakdown on your buttocks caused by seating/cushion? Yes - Chaffing and healed sore caused by seating. Sore is starting to get sensitive and patient is nervous about it opening back up. 12. Are you able to walk in your home? Yes If yes: Distance able to walk? 10' Device used? Other: None - Not really walking because hand hurts and is unable to use walker. She can however, walk 10' when she can use her walker. 13. How do you transfer? Stand pivot 14. Do you need assistance for your transfers? Comment: Yes - but only into the shower. No assistance needed for other transfers. 15. Will anyone be with you at time of appointment? No 16. Approximate Height? 5'4 17. Approximate Weight? 395lbs 18. Name of Medical Vendor? [employer] 19. Insurance Information: a. Primary Insurance: Medicare A/B b. Secondary Insurance: [place] Medicaid standard plan- Extension process must be followed for additionalvisits beyond yearly allowable If Medicare: Have you been seen in therapy since August first of this year? No Are you receiving any home health or VNA services? No 20. Are you receiving Physical Therapy, Occupational Therapy or Speech-Language Pathology Services? No 21. Do you require SSTA for transportation? No Patient does however, use [facility] [employer]. 22. Are there any additional areas of function or concern that you would like help with? No 23. Do you have any other requests, comments, questions you would like to add prior to your appointment? No 24. To whom should we send an additional questionnaire (if needed)? [address] [facility], [address] [place] [address] DEONTE GUY MA documented in this encounter Plan of Treatment Not on filedocumented as of this encounter Visit Diagnoses Not on filedocumented in this encounter Care Teams Lamp Shade Assembler Relationship Specialty Start Date End Date Brandan Fabian MD PCP - General 11/19/15 10/21/19 documented as of this encounter
--- OUTSIDE RECORDS SUMMARY | 2022-03-05 02:21 | XMS_ITS | Encounter Summary ---
:1955 Author Organization [facility] Address [address] [place] [address] Care Team Providers Name Role Phone Alphonso Murphy MD Primary Care Provider [phone] Reason for Visit Reason Onset Date Comments Appointment Related 02/25/2020 Encounter Details Date Type Department Care Team Description 02/25/2020 Telephone [facility] Therapy, Physical Appo intment Related Rehabilitation Therapy - [address] [address] Social History Tobacco Use Types Packs/Day Years Used Date Never Assessed Sex Assigned at Date Recorded Not on file documented as of this encounter Miscellaneous Notes Telephone Encounter - Juli Roger MA - 02/25/2020 1238 EDT Pt is calling into the wheelchair clinic and wanting to speak with Anca Denilson, PT, DPT in regards to her wheelchair. She is leaning to the right now and feels she needs another height adjustable and angle adjustable lateral thigh support for her right side now as the one on the left side pushes her to the right. Per Marie at [facility] she needs to go thru this PT to get this item. I let the pt know that Anca is out of the office and will be returning on 02/27/20. Juli Roger MA 02/25/2020 12:40 documented in this encounter Plan of Treatment Not on filedocumented as of this encounter Visit Diagnoses Not on filedocumented in this encounter Care Teams Anatomic Pathology Assistant Relationship Specialty Start Date End Date Alphonso Murphy MD PCP - General 10/22/[address] [place] [address] documented as of this encounter
--- OUTSIDE RECORDS SUMMARY | 2022-03-05 02:21 | XMS_ITS | Encounter Summary ---
:1955 Author Organization [facility] Address [address] [place] [address] Care Team Providers Name Role Phone Brandan Fabian MD Primary Care Provider Unavailable Reason for Visit Reason Onset Date Comments Appointment Related 03/08/2017 Encounter Details Date Type Department Care Team Description 03/08/2017 Telephone [facility] Therapy, Physical Appo intment Related Rehabilitation Therapy - [address] [phone] Social History Tobacco Use Types Packs/Day Years Used Date Never Assessed Sex Assigned at Date Recorded Not on file documented as of this encounter Miscellaneous Notes Telephone Encounter - Juli Roger - 03/08/2017 1241 EDT Patient calling into the Wheelchair clinic to speak with Anca Oreilly PT. Radha is wanting to talkto Anca and also wants to let her know that she did have the face to face, as requested, with her primary doctor on March 02. Juli Roger 03/08/2017 12:42 documented in this encounter Plan of Treatment Not on filedocumented as of this encounter Visit Diagnoses Not on filedocumented in this encounter Care Teams Film Projector Operator Relationship Specialty Start Date End Date Brandan Fabian MD PCP - General 11/19/15 10/21/19 documented as of this encounter
--- OUTSIDE RECORDS SUMMARY | 2022-03-05 02:21 | XMS_ITS | Encounter Summary ---
:[address] [facility] Address [address] [place] [address] Care Team Providers Name Role Phone Unavailable Primary Care Provider Unavailable Reason for Visit Reason Onset Date Comments Appointment Related 11/24/2010 Encounter Details Date Type Department Care Team Description 11/24/2010 Telephone [facility] Anca Oreilly, [place] ointment Related Rehabilitation Therapy - PT [address] [phone] Social History Tobacco Use Types Packs/Day Years Used Date Never Assessed Sex Assigned at Date Recorded Not on file documented as of this encounter Miscellaneous Notes Telephone Encounter - Jayshree Anderson - 11/26/2010 1531 EDT I called Radha back and asked if she'd like to schedule a wheelchair evaluation and she said she's decided not to work with [facility] and instead contacted [facility], she now has a power chair and stated this is working well for her and has no P.T needs. I've notified Dontrel at [facility] of this. elephone Encounter - Jayshree Anderosn - 11/24/2010 1509 EDT Left message at home number requesting return call to schedule wheelchair evaluation. documented in this encounter Plan of Treatment Not on filedocumented as of this encounter Visit Diagnoses Not on filedocumented in this encounter
--- OUTSIDE RECORDS SUMMARY | 2022-03-05 02:21 | XMS_ITS | Encounter Summary ---
:1955 Author Organization [facility] Address [address] [place] [address] Care Team Providers Name Role Phone Brandan Fabian MD Primary Care Provider Unavailable Encounter Details Date Type Department Care Team Description 06/23/2017 Documentation Visit [facility] Audrey Paez, Rehabilitation Therapy - PT [address] [place] [id number] Social History Tobacco Use Types Packs/Day Years Used Date Never Assessed Sex Assigned at Date Recorded Not on file documented as of this encounter Progress Notes Audrey Paez, PT - 06/23/2017 2216 EST REHABILITATION THERAPIES [facility] - [address] [address] Physical Therapy Discontinue/Discharge Note Date of Service: 06/23/2017 Reason for Referral: Diagnosis: 1) COPD 2) Low Back Pain 3) Difficulty Walking 4) Wheelchair managment and training Date of Onset: 11/19/15 (sought care) Referring Provider: Brandan Fabian MD Precautions: Morbid obesity Total Number of Sessions: 1 S: N/A O: In this reporting period 01/13/2016 to 06/23/2017, the patient has been seen by a physical therapist. Relevant objective findings: None, as the patient did not meet insurance requirement for a new wheelchair, thus further assessment was not completed. Please refer to initial evaluation dated 01/13/2016 for further details. A: The patient initiated physical therapy due to difficulty walking as a result of COPD, asthma and back pain. She demonstrated decreased strength in all limbs, abnormal posture and gait impairment. Due to her diagnosis of COPD and asthma, need for use of 2 L of oxygen and issues with low back pain and left knee intermittently giving out felt that the patient required the use of a power wheelchair tominimize her risk of falling and maximize her ability to access her home and community. [place] that the patient will benefit from the trial of a mid wheel drive wheelchair as this would improve her turning radius within her home and improve the distrubution of her weight over the drive wheel. However feel that the increased abduction in her lower extremities due to excess adipose tissue may pose an issue with a mid wheel drive wheelchair as she may be at risk of catching her feet in the casters due tothe more narrow foot plate and position of the front casters. [place] that she may require the use of standard swing away foot plates to alleviate this problem or a front wheel drive wheelchair. It is appropriate to discontinue physical therapy at this time as she did not meet insurance requirements for new wheelchair. ?? Crayon Grader Goals: 12 weeks (ALL GOALS DISCONTINUED) ?? The patient safely and independently propels prescribed mobility device and manages all parts of the device in order to complete basic and instrumental activities of daily living in the customary location in their home. ?? The patient???s posture is well supported so that the patient can complete all personal care activities requiring bimanual support and feet are well supported to avoid injury to her feet. P: Discontinue Physical Therapy. Audrey Paez, PT 06/23/2017 22:35 documented in this encounter Plan of Treatment Not on filedocumented as of this encounter Visit Diagnoses Not on filedocumented in this encounter Care Teams Daily Sales Audit Clerk Relationship Specialty Start Date End Date Brandan Fabian MD PCP - General 11/19/15 10/21/19 documented as of this encounter
--- OUTSIDE RECORDS SUMMARY | 2022-03-05 02:22 | XMS_ITS | Encounter Summary ---
:1955 Author Organization [facility] Address [address] [place] [address] Care Team Providers Name Role Phone Unavailable Primary Care Provider Unavailable Encounter Details Date Type Department Care Team Description 09/23/1999 Results Only [facility] - Sunitha Foss CNM [facility] [address] [place] [id number] Social History Tobacco Use Types Packs/Day Years Used Date Never Assessed Sex Assigned at Date Recorded Not on file documented as of this encounter Plan of Treatment Not on filedocumented as of this encounter Procedures Procedure Name Priority Date/Time Associated Diagnosis Comme nts CYTOPATHOLOGY Routine 09/23/1999 14:19 EST Result s for this procedure are i n the results section . documented in this encounter Results CYTOPATHOLOGY (09/23/1999 14:19 EST) Pathology Report: CYTOPATHOLOGY REPORT [facility] Reports generated via electronic interface contain amarilys ginal data; however they are lacking the format of the original re port. Caution should be taken when reading/interpreting unfo rmatted reports. Name: ? 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 Accession #: ? [id number] : ? 1955 (Age: 44) ??F ?Collect Date: ? 04/2000 Location: ?Receive Date: ? 09/23/1999 Provider: ?SUNITHA RICH CNM Copy to: ?SUNITHA RICH CNM ? Specimen/Source: ?[employer] Thin[employer] Last Menstrual Period: ? GYNECOLOGIC ??CYTOPATHOLOG Y ??REPORT Name: YOUNG,CYN A ? [facility] : 1955 ?? 44Y F ?Client ID: [id number] SS#: ? Clinician: RICH KEREN, SUNITHA ?? Location: [facility] ??Copy to: ?? Specimen: ?[employer] ThinPrep ? Source: Cervix/Endocervix ?Collected: 09/21/99 ? Received: 09/23/1999 ?LMP: 09/03/99 ? Hormone Therapy: No ? : No ? Radiation Therapy: No ?? Post : No ?Chemotherapy: No ?IUD: No ? Prev Abnormal Pap: No ?? Clinical Hx: ?(Blank dubose indicate information not provided on requisition) SPECIMEN ADEQUACY: ? Satisfactory For Evaluation ?? GENERAL CATEGORIZATION: ? BENIGN CELLULAR CHANGES ?? DESCRIPTIVE DIAGNOSIS: ? Predominance Of Coccobacilli Present Consistent With A Shift In ? Vaginal Tamika ? * CORRECTED REPORT * Original report issued 05/2000 was ? incomplete. ? Reviewed And Electronically Signed By: ? Juli Verr iotto, CT(ASCP) ? Report Date : ?? 09/28/1999 [employer] Archived Tests - Final Diagnosis Text Field: Clinical History : ? Document reviewed and electronically signed by: ? Conversion ? Report Date: ??09/28/1999 00:00 End of Report Specimen Performing Organization Address City/State/ZIP Code Phon e Number [facility] [address] [place] [address] SERVICES [facility] [address] [place] [address] documented in this encounter Visit Diagnoses Not on filedocumented in this encounter
--- OUTSIDE RECORDS SUMMARY | 2022-03-05 02:22 | XMS_ITS | Encounter Summary ---
:1955 Author Organization [facility] Address [address] [place] [address] Care Team Providers Name Role Phone Unavailable Primary Care Provider Unavailable Encounter Details Date Type Department Care Team Description 06/20/2007 Results Only [facility] - Sunitha Frankel MD [address] [place] [address] [place], [place] [id number] [phone] Social History Tobacco Use Types Packs/Day Years Used Date Never Assessed Sex Assigned at Date Recorded Not on file documented as of this encounter Plan of Treatment Not on filedocumented as of this encounter Procedures Procedure Name Priority Date/Time Associated Diagnosis Comme [facility] CYTOPATHOLOGY Routine 06/20/2007 0:00 EST Results for this procedure are i n the results section . documented in this encounter Results CYTOPATHOLOGY (06/20/2007 0:00 EST) Pathology Report: CYTOPATHOLOGY REPORT [facility] Reports generated via electronic interface contain amarilys ginal data; however they are lacking the format of the original re port. Caution should be taken when reading/interpreting unfo rmatted reports. Name: ? 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 Accession #: ? [id number] : ? 1955 (Age: 52) ??F ?Collect Date: ? 11/0 01/2007 Location: ? [facility] ? Receive Date : ? 06/22/2007 Provider: ?SUNITHA TROTTER MD Copy to: ? Specimen/Source: ? ThinPrep Pap Test, Cervix/Endocervix, processed on [employer] ThinPrep Imaging System, with manual evaluation Last Menstrual Period: ? 06/01/07 Other: ? HPVA - HPV testing requested if ASC-US on the current ThinPrep Pap test. ? SPECIMEN ADEQUACY ? Satisfactory for Evaluation - transformation zone component present GENERAL CATEGORIZATION ? Negative for Intraepithelial Lesion or Malignan cy ? Document reviewed and electronically signed by: ? Sunitha Almendarez, EVARISTO(ASCP) ? Report Date: ??06/27/2007 11:30 End of Report Specimen Performing Organization Address City/State/ZIP Code Phon e Number [facility] [address] [place] [address] SERVICES [facility] [address] [place] [address] documented in this encounter Visit Diagnoses Not on filedocumented in this encounter
== END 2022-03-05 02:14 | disposition home or self-care (01) ==
LOC: LBO 02:13
PROVIDERS: PCP Family Medicine; Visit Provider Family Medicine

== ENCOUNTER 2022-03-11 12:56 | Outpatient (CLI) | payer MEDICARE, MEDICAID, SELFPAY ==
[2022-03-11 15:51] LABS: TSH (W/Ref FT4) 0.31 uIU/mL (0.36-3.74)
[2022-03-11 16:09] LABS: FREE T4 1.68 ng/dL (0.76-1.46)
== END 2022-03-11 12:57 | disposition home or self-care (01) ==
LOC: LBO 12:57
PROVIDERS: PCP Family Medicine; Visit Provider Family Medicine
DX: E03.9 Hypothyroidism, unspecified (principal)
CPT/HCPCS: 36415; 84439; 84443

== ENCOUNTER 2022-03-25 14:00 | Outpatient (REF) | payer MEDICARE, MEDICAID, SELFPAY ==
[2022-03-27 10:42] LABS: COVID-19 RT-PCR UVMMC Result Negative (Negative)
== END 2022-03-25 14:01 | disposition home or self-care (01) ==
LOC: LBN 14:00
PROVIDERS: PCP Family Medicine; Visit Provider Physician Assistant Medical
DX: Z20.822 Contact with and (suspected) exposure to COVID-19 (principal); R09.89 Other specified symptoms and signs involving the circulatory and respiratory systems
CPT/HCPCS: U0003; 84443

== ENCOUNTER 2022-03-30 13:23 | Emergency (ER) | payer MEDICARE, MEDICAID, SELFPAY ==
[2022-03-30 13:31] VITALS: BP 155/78; PULSE 72; RESP 18; TEMP 36.6; O2SAT 92
--- NOTE | 2022-03-30 14:00 | RT.EKG_ITS ---
APPROVED REPORT Exam: Resting ECG Reason for Exam: shortness of breath Patient Location: E HR:76 bpm ECG Measurements Heart Rate 76 AXIS MO 194 P 53 QRSd 104 QRS 48 QT 405 T 7 QTc 455 Conclusion Sinus rhythm...normal P axis, V-rate 60- 99
--- NOTE | 2022-03-30 14:15 | DI.RAD_ITS ---
Exam(s) XR PORTABLE CHEST AP EXAM: XR PORTABLE CHEST AP CLINICAL HISTORY: cough. TECHNIQUE: 2D digital imaging was performed. COMPARISON: CR XR PORTABLE CHEST AP from 11/17/2021 FINDINGS: Single AP portable view. Mild cardiomegaly. Mediastinum unchanged. Pulmonary venous hypertension pattern. Possibly early interstitial pulmonary edema. No pleural effu sions. IMPRESSION: Mild cardiomegaly. Pulmonary venous hypertension pattern. Recommend nonportable PA and lateral view s when clinically possible DATA REPOSITORY: RADIATION DOSE DELIVERED: All CT scans at this facility use at least one of these dose optimization techniques: automated exposure control; mA and/or kV adjustment per patient size (includes targeted e xams where dose is matched to clinical indication); or iterative reconstruction.
--- NOTE | 2022-03-30 14:18 | W.ED.GENAD ---
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 [facility] metformin 1,000 mg tablet 1,000 mg PO BID Qty: 180 3RF fluticasone propionate [Flonase Allergy Relief] 50 mcg/actuation spray,suspension 1 spray NS DAILY Qty: 1 8RF clotrimazole 1 % cream 1 applic topical TID Qty: 30 2RF nystatin 100,000 unit/gram powder 1 applic TP BID PRN (Reason: intertrigo) Qty: 30 5RF ketotifen fumarate [Zaditor] 0.025 % (0.035 %) drops 1 drp OP BID PRN (Reason: allergy symptoms) Qty: 5 2RF Rx Instructions: administer at least 8 hours apart ascorbic acid (vitamin C) 1,000 MG tablet 1,000 mg PO DAILY (DME) Aerochamber Mini 1 EACH spacer 1 ea Inhalation PRN Qty: 1 Rx Instructions: DIRECTED WITH INHALER BiPAP Inhalation Gas 5 l IN DIRECTED Rx Instructions: sleep apnea ([facility] sleep lab 2013) uses with oxygen oxygen Inhalation 2 l Intranasal DIRECTED Label Comments: Continuous and uses with bipap Rx Instructions: 2L/NC continuous silver sulfadiazine 20 GM cream 1 applic Topical BID PRNQty: 60 Rx Instructions: apply to leg redness prn montelukast [Singulair] 10 mg tablet 10 mg PO DAILY Qty: 30 11RF albuterol sulfate [ProAir HFA] 90 mcg/actuation HFA aerosol inhaler 1 - 2 puff Inhalation Q6H PRN Qty: 1 11RF citalopram [Celexa] 20 mg tablet 20 mg PO DAILY Qty: 90 3RF ipratropium-albuterol 0.5 mg-3 mg(2.5 mg base)/3 mL solution for nebulization 3 ml IH QID MDD 4 nebs Qty: 180 3RF ketoconazole 2 % cream 1 applic topical BID PRN (Reason: rash) Qty: 60 1RF sulfamethoxazole-trimethoprim [Bactrim DS] 800-160 mg tablet 1 tab PO BID Qty: 14 0RF betamethasone, augmented 0.05 % lotion 1 applic topical BID PRN (Reason: allergic reaction) Qty: 60 2RF buspirone 5 mg tablet 10 mg PO TID PRN (Reason: anxiety) Qty: 60 11RF tizanidine 2 mg tablet 2 mg PO Q8H PRN (Reason: muscle spasticity) Qty: 20 0RF alclometasone 0.05 % cream 1 applic topical BID PRN (Reason: itching) Qty: 45 1RF levothyroxine [Levo-T] 175 mcg tablet 175 mcg PO DAILY Qty: 30 2RF aspirin 325 MG tablet 325 mg PO DAILY Qty: 0 0RF No Action prednisone 20 mg tablet 10 - 40 mg PO DAILY Qty: 12 0RF Rx Instructions: 2 /day for 3 days, then 1 /day for 4 days, then 1/2 day for 4 days prednisone 20 mg tablet 40 mg PO DAILY Qty: 10 0RF Rx Instructions: prednisone 50 mg tablet 50 mg PO DAILY Qty: 4 0RF doxycycline hyclate 100 mg capsule 100 mg PO BID Qty: 14 0RF prednisone 20 mg tablet 40 mg PO DAILY Qty: 10 0RF Discharge Instructions Additional Instructions: increase your lasix dose to 3 tablets per day so you should be taking 120mg daily. Follow up with your primary care provider within a week to see if this dose should be adjusted you are being prescribed more of the augmentin and prednisone if you feel more ill, have worsening shortness of breath or fevers return to the emergency department Medical Decision Making 66 yo female with hx of copd on 3L NC, david, who comes in with chief complaint of cough and shortness of breath. She travelled to [place] over a week ago and returned last week and on returning felt a cough and slowly worsening shortness of breath. She saw urgent care and was prescribed prednisone and doxycycline along with another antibiotic she is unsure the name of, all of which she finished but despite this still has a wet cough and shortness of breath. She denies chest pain, fevers, chills, known sick contacts. She appears fatigued on exam but is able to speak in 4-5 word sentences. She has a wet souding cough and has apical wheezing bilaterally on lung exam and lower lung dubose have diminished breath sounds. Her history and physical seem consistent with copd exacerbation and possibly pneumonia given her wet sounding cough. Will treat with iv solumedrol, duonebs and obtain cxr. No chest pain so doubt acs but will obtain ecg and troponin and also obtain cbc, cmp and blood cultures. [facility] and she was prescribed augmentin as well on 03/25. numerous attempts were made at iv and lab draw and cbc and lactate unable to be obtained. Her xray shows mild interstitial edema no focal infiltrate and is on furosemide daily. I did offer to try and iv under u/s and discussed admission but she has no desire at all to be in the hospital and wants to go home. She is stable in terms of her vitals, o2 sat on her 3L is 95% so feel this is reasonable. I will provide a few more days prednisone and her augmentin was only for 5 days so will provide 5 more days of this. She will f/u with her pcp and return precautions given Differential Diagnosis Differential Diagnosis: pneumonia, copd, covid, influenza Medical Records Medical records reviewed: Yes I reviewed the patient's medical records. Imaging Data Radiologic Study: Attestation: I personally reviewed and interpreted this imaging study as follows: Imaging: X-Ray Radiologist's impression: IMPRESSION: Mild cardiomegaly.? Pulmonary venous hypertension pattern. Lab Data Lab results reviewed: Yes I reviewed the patient's lab results. ECG Data Attestation: I personally reviewed and interpreted this ECG (s) as follows: Prior ECG tracings: available for review Interpretation: sinus rhythm, rate of 76, no acute st t wave ischemic findings HPI General Mode of arrival: wheelchair. Date/Time Provider Initiated Documentation: 03/30/22 13:37. Limitations to Documentation: no limitations. Information obtained by: patient. History of Present Illness 66 year old F presents to the emergency department with the chief complaint of cough, described as moderate, Patient started experiencing this week(s) (1) and it has been constant. No relieving factors improve symptom(s), No exacerbating factors reported . Patient notes shortness of breath. Patient did receive the following treatments prior to arrival, none Related Data Home Medications Medication Instructions Recorded Confirmed ascorbic acid (vitamin C) 1,000 mg 1,000 mg PO DAILY 11/25/12 03/30/22 tablet inhalational spacing device ##1 12/21/13 03/30/22 (Aerochamber Mini) Bipap 5 l IN DIRECTED 07/23/14 03/30/22 Oxygen 2 l intranasal DIRECTED 12/24/14 03/30/22 aspirin 325 mg tablet 325 mg PO DAILY #0 tab-caps 06/22/15 03/30/22 silver sulfadiazine 1 % topical 1 applic topical BID PRN #60 grams 12/28/17 03/30/22 cream triamcinolone acetonide 0.1 % 1 applic topical BID PRN rash on 12/22/18 03/30/22 topical cream legs #30 grams clotrimazole 1 % topical cream 1 applic topical TID #30 grams 02/20/19 03/30/22 nystatin 100,000 unit/gram topical 1 applic topical BID PRN 02/20/19 03/30/22 powder intertrigo #30 grams ketotifen fumarate 0.025 % (0.035 1 drp ophthalmic (eye) BID PRN 04/27/19 03/30/22 %) eye drops (Zaditor) allergy symptoms #5 mL montelukast 10 mg tablet 10 mg PO DAILY #30 tabs 01/29/20 03/30/22 (Singulair) albuterol sulfate 90 mcg/actuation 1 - 2 puff inhalation Q6H PRN ##1 06/06/20 03/30/22 aerosol inhaler (ProAir HFA) citalopram 20 mg tablet (Celexa) 20 mg PO DAILY #90 tab-caps 06/06/20 03/30/22 ipratropium 0.5 mg-albuterol 3 mg 3 ml inhalation QID COPD 06/06/20 03/30/22 (2.5 mg base)/3 mL nebulization exacerbation/wheezing #180 mL soln prednisone 50 mg tablet 50 mg PO DAILY #4 tabs 07/08/20 03/30/22 prednisone 20 mg tablet 10 - 40 mg PO DAILY #12 tabs 07/15/20 03/30/22 prednisone 20 mg tablet 40 mg PO DAILY #10 tabs 10/15/20 03/30/22 fluticasone propionate 50 1 spray NS DAILY ##1 01/14/21 03/30/22 mcg/actuation nasal spray,suspension (Flonase Allergy Relief) furosemide 40 mg tablet 80 mg PO DAILY #90 tabs 01/14/21 03/30/22 metformin 1,000 mg tablet 1,000 mg PO BID #180 tabs 01/14/21 03/30/22 ketoconazole 2 % topical cream 1 applic topical BID PRN rash #60 01/30/21 03/30/22 grams sulfamethoxazole 800 1 tab PO BID #14 tabs 06/19/21 03/30/22 mg-trimethoprim 160 mg tablet (Bactrim DS) betamethasone, augmented 0.05 % 1 applic topical BID PRN allergic 06/20/21 03/30/22 lotion reaction #60 mL buspirone 5 mg tablet 10 mg PO TID PRN anxiety #60 tabs 08/25/21 03/30/22 tizanidine 2 mg tablet 2 mg PO Q8H PRN muscle spasticity 10/07/21 03/30/22 #20 tabs alclometasone 0.05 % topical cream 1 applic topical BID PRN itching 10/16/21 03/30/22 #45 grams doxycycline hyclate 100 mg capsule 100 mg PO BID #14 caps 11/17/21 03/30/22 prednisone 20 mg tablet 40 mg PO DAILY #10 tabs 11/17/21 03/30/22 levothyroxine 175 mcg tablet 175 mcg PO DAILY #30 tabs 03/15/22 03/30/22 (Levo-T) amoxicillin 875 mg-potassium 1 tab PO BID #14 tabs 03/30/22 clavulanate 125 mg tablet prednisone 20 mg tablet 60 mg PO DAILY 4 days #12 tabs 03/30/22 Previous Rx's Medication Instructions Recorded aspirin 325 mg tablet 325 mg PO DAILY #0 tab-caps 06/22/15 triamcinolone acetonide 0.1 % 1 applic topical BID PRN rash on 12/22/18 topical cream legs #30 grams clotrimazole 1 % topical cream 1 applic topical TID #30 grams 02/20/19 nystatin 100,000 unit/gram topical 1 applic topical BID PRN 02/20/19 powder intertrigo #30 grams ketotifen fumarate 0.025 % (0.035 1 drp ophthalmic (eye) BID PRN 04/27/19 %) eye drops (Zaditor) allergy symptoms #5 mL montelukast 10 mg tablet 10 mg PO DAILY #30 tabs 01/29/20 (Singulair) albuterol sulfate 90 mcg/actuation 1 - 2 puff inhalation Q6H PRN ##1 06/06/20 aerosol inhaler (ProAir HFA) citalopram 20 mg tablet (Celexa) 20 mg PO DAILY #90 tab-caps 06/06/20 ipratropium 0.5 mg-albuterol 3 mg 3 ml inhalation QID COPD 06/06/20 (2.5 mg base)/3 mL nebulization exacerbation/wheezing #180 mL soln prednisone 50 mg tablet 50 mg PO DAILY #4 tabs 07/08/20 prednisone 20 mg tablet 10 - 40 mg PO DAILY #12 tabs 07/15/20 prednisone 20 mg tablet 40 mg PO DAILY #10 tabs 10/15/20 fluticasone propionate 50 1 spray NS DAILY ##1 01/14/21 mcg/actuation nasal spray,suspension (Flonase Allergy Relief) furosemide 40 mg tablet 80 mg PO DAILY #90 tabs 01/14/21 metformin 1,000 mg tablet 1,000 mg PO BID #180 tabs 01/14/21 ketoconazole 2 % topical cream 1 applic topical BID PRN rash #60 01/30/21 grams sulfamethoxazole 800 1 tab PO BID #14 tabs 06/19/21 mg-trimethoprim 160 mg tablet (Bactrim DS) betamethasone, augmented 0.05 % 1 applic topical BID PRN allergic 06/20/21 lotion reaction #60 mL buspirone 5 mg tablet 10 mg PO TID PRN anxiety #60 tabs 08/25/21 tizanidine 2 mg tablet 2 mg PO Q8H PRN muscle spasticity 10/07/21 #20 tabs alclometasone 0.05 % topical cream 1 applic topical BID PRN itching 10/16/21 #45 grams doxycycline hyclate 100 mg capsule 100 mg PO BID #14 caps 11/17/21 prednisone 20 mg tablet 40 mg PO DAILY #10 tabs 11/17/21 levothyroxine 175 mcg tablet 175 mcg PO DAILY #30 tabs 03/15/22 (Levo-T) amoxicillin 875 mg-potassium 1 tab PO BID #14 tabs 03/30/22 clavulanate 125 mg tablet prednisone 20 mg tablet 60 mg PO DAILY 4 days #12 tabs 03/30/22 Allergies Allergy/AdvReac Type Severity Reaction Status Date / Time hydrocodone Allergy Severe ITCHING Verified 03/30/22 16:48 morphine Allergy Mild PRURITIS Verified 03/30/22 16:48 oxycodone Allergy Mild ITCHING Verified 03/30/22 16:48 General Stated Complaint: RespSymp REUBEN: 2 Review of Systems All systems reviewed & are unremarkable except as noted in HPI and below Constitutional Constitutional: Denies chills, Denies fever(s) and Denies weakness Eyes Eyes: Denies loss of vision Cardiovascular Cardiovascular: Denies chest pain and Reports dyspnea Respiratory Respiratory: Reports cough and Reports dyspnea Gastrointestinal Gastrointestinal: Denies abdominal pain, Denies nausea and Denies vomiting Genitourinary Genitourinary: Denies dysuria Integumentary/Breasts Skin/Breast: Denies rash Neurologic Neurologic: Denies loss of vision and Denies weakness PFSH All Active Problems (Updated 03/30/22 @ 19:02 by Samy Garcia MD) Shortness of breath (Acute) Cough (Acute) Right carpal tunnel syndrome (Acute) Bilateral hand pain (Acute) Thyroid disease (Acute) Viral URI (Acute) Low back pain (Acute) Chest wall pain (Acute) Dysphagia (Acute) Conductive hearing loss, external ear (Acute) Impacted cerumen, left ear (Acute) Ulcer of right lower extremity (Acute) Bronchitis (Acute) Cellulitis of leg, right (Acute) Fever (Acute) Thyroid enlargement (Acute) S/p thyroidectomy 2020 Mixed conductive and sensorineural hearing loss of both ears (Acute) Allergic sinusitis (Acute) Hyperglycemia (Acute) DAVID (obstructive sleep apnea) (Chronic) Community acquired pneumonia (Acute) COPD exacerbation (Acute) Sprain of scapholunate ligament (Acute 03/21/19) Allergic conjunctivitis (Acute) Wrist pain, right (Acute) Chronic obstructive pulmonary disease (Chronic) Chest pain (Acute 07/23/14) History of fasciotomy (Acute) Pleural effusion on right (Acute 05/03/14) Status post total bilateral knee replacement (Acute) Discharge planning issues (Acute) Chronic respiratory failure with hypoxia and hypercapnia (Chronic) Grief at loss of child (Acute) Depression (Chronic) Varicose veins of lower extremity (Chronic) Low back pain with sciatica (Chronic 05/03/14) CT at [facility] L34 spinal stenosis Advance directive on file (Acute) DVT prophylaxis (Acute) Sensorineural hearing loss, bilateral (Chronic 08/29/13) Morbid obesity (Acute 04/05/13) Knee pain, bilateral (Chronic 07/23/14) s/p bilat TKR (left infected with mult surg and decreased mobility) Goiter, nontoxic, 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 PFTs 09/2012 showed an FEV1 of 60% with improvement to 80% with bronchodilator, thought to be severe restrictive disease. Depressive disorder (Chronic) Insomnia with sleep apnea (Chronic) Obstructive sleep apnea syndrome (Chronic) Chronic headaches (Chronic) Recent Neurology consult for possible papilledema. Urinary incontinence (Chronic) On Detrol Recurrent UTI (Chronic) History of Surgical Procedure (Chronic) a. Right and left toal knee replacements. b. Left knee has been repeatedly operated on with slava surgies, three replacements. Pneumonia (Acute) finish steroids and antibiotics Right ventricular dysfunction (Chronic) Surgical History Fasciotomy, Foot (~1996) LEFT Replacement of total knee joint Bilateral; left-became ipuvqzzf-ycjgubq-smivbglc surgeries Family History Mother Diabetes Personal history of malignant neoplasm LUNG Father Personal history of malignant neoplasm BRAIN Grandfather No problems noted. Grandfather No problems noted. Grandmother No problems noted. Grandmother No problems noted. Social History (Updated 01/21/22 @ 13:51 by Emelyn Mir) Smoking/Tobacco Use Status: Former Tobacco Use tobacco type: cigarettes Quit Date: 01/21/21 Second Hand Exposure: Yes Smoking risk assessment performed?: Yes Alcohol Intake: never Drug use: Never Substance use type: does not use Communication Needs: Hard of Hearing and Corrective Lenses Pets and animals: Yes Pets and animals: cat(s) Sexually active: Yes Current gender identity: female What is your relationship status?: never How often do you talk on the phone with friends or family?: decline to answer How often do you get together with friends or relatives?: decline to answer How often do you attend zoroastrian or voodoo services?: decline to answer Do you belong to any clubs or organized social groups?: no Panel score (0-1 are the most socially isolated patients): 0 Seatbelt use: never Do you feel safe at home: Yes Do you feel safe in your relationship?: Yes Exam Const General: no acute distress Orientation: alert HENMT Head: normal to inspection Ears: external ears normal General nose exam: external nose normal Mouth: moist mucous membranes Eyes General: appearance normal, both eyes and all related structures Neck Neck: normal visual inspection Resp Effort & Inspection: cough Cardio Rate: regular rate Skin General skin exam: no rashes or lesions noted Neuro General: patient alert and patient oriented x3 Extrem General: normal to inspection Psych Mental Status: mental status grossly normal Course Vital Signs Vital signs: Vital Signs Temperature 36.6 C 03/30/22 13:31 Pulse 72 03/30/22 13:31 Respiratory Rate 18 03/30/22 13:31 Blood Pressure 155/78 H 03/30/22 13:31 Pulse Oximetry 92 03/30/22 13:31 Temperature 36.6 C 03/30/22 13:31 Temperature Source Temporal Artery Scan 03/30/22 13:31 Pulse 72 03/30/22 13:31 Respiratory Rate 18 03/30/22 13:31 Respiratory Effort 03/30/22 13:38 Blood Pressure 155/78 H 03/30/22 13:31 Blood Pressure Position Sitting 03/30/22 13:31 Pulse Oximetry 92 03/30/22 13:31 Oxygen Delivery Method Nasal Cannula 03/30/22 13:31 Oxygen Flow Rate 3 03/30/22 13:31 Lab/Test Results Lab/Test Results: 03/30/22 14:07 Blood Blood Culture - Pending 03/30/22 14:07 Blood Blood Culture - Pending
[2022-03-30 15:11] LABS: Source Nasal/Nares
[2022-03-30 15:26] LABS: COVID-19 PCR Negative (Negative); Influenza A PCR Negative (Negative); Influenza B PCR Negative (Negative); RSV PCR Negative (Negative)
[2022-03-30 15:50] LABS: COVID-19 PCR Negative (Negative)
[2022-03-30 17:01] VITALS: RESP 4; O2SAT 92
[2022-03-30] MEDS: Albuterol/Ipratropium 3 ML UPD VIAL UPD (17:01)
[2022-03-30 17:34] LABS: ALT 25 U/L (14-59); AST 18 U/L (15-37); Albumin 2.7 g/dL (3.4-5.0); Alkaline Phosphatase 75 U/L (46-116); Anion Gap 6.9 mmol/L (3-11); BUN 16 mg/dL (7-18); Bilirubin, Total 0.9 mg/dL (0.2-1.0); CO2 28.1 mmol/L (21.0-32.0); CREATININE 0.7 mg/dL (0.55-1.02); Calcium 8.3 mg/dL (8.5-10.1); Chloride 104 mmol/L (98-107); Glucose 100 mg/dL (74-106); NT-proBNP 265 pg/mL (<300); Potassium 3.9 mmol/L (3.5-5.1); Sodium 139 mmol/L (136-145); Troponin I < 50 ng/L (<or=60)
[2022-03-30] MEDS: predniSONE 20 MG TAB 60 MG PO (18:56)
[2022-03-30] MEDS: Amoxicillin 875/Clav. 125 TAB PO (18:56)
== END 2022-03-30 19:12 | disposition home or self-care (01) ==
PROVIDERS: Emergency Provider Emergency Medicine; PCP Family Medicine
DX: J44.9 Chronic obstructive pulmonary disease, unspecified (principal); Z20.822 Contact with and (suspected) exposure to COVID-19; Z87.891 Personal history of nicotine dependence; J84.89 Other specified interstitial pulmonary diseases; Z79.51 Long term (current) use of inhaled steroids; Z79.52 Long term (current) use of systemic steroids
CPT/HCPCS: 80053; 82805; 84145; 87040; 87635; 87637; 93005; 94640; 96374; 99284; 71045; 83605; 83735; 83880; 84484; 85025; 93010; J7512; J7620

== ENCOUNTER 2022-04-07 11:07 | Outpatient (CLI) | payer MEDICARE, MEDICAID, SELFPAY ==
[2022-04-07 12:47] LABS: Abs Immature Grans 0.03 10^3/uL (0.0-0.06); Absolute Basophil Count 0.03 10^3/uL (0.0-0.2); Absolute Eosinophil Count 0.28 10^3/uL (0.0-0.7); Absolute Lymphocyte Count 2.45 10^3/uL (1.2-3.4); Absolute Monocyte Count 0.71 10^3/uL (0.1-0.8); Absolute Neutrophil Count 5.01 10^3/uL (1.2-6.7); Basophils % 0.4; Eosinophils % 3.3; HCT 43.1 % (36.0-46.0); HGB 14.5 g/dL (11.2-15.7); Immature Grans % 0.4; Lymphocytes % 28.8; MCH 29.3 pg (27.0-33.0); MCHC 33.6 % (32.0-36.0); MCV 87 fL (80-95); MPV 11.5 fL (8.0-11.0); Monocytes % 8.3; Neutrophils % 58.8; Platelet Count 258 10^3/uL (130-400); RBC 4.95 10^6/uL (3.93-5.22); RDW 14.3 % (11.7-14.6); RDW-SD 46.1 fL; WBC 8.51 10^3/uL (4.4-10.8)
[2022-04-07 13:17] LABS: NT-proBNP 104 pg/mL (<300); TSH (W/Ref FT4) 1.93 uIU/mL (0.36-3.74)
== END 2022-04-07 11:08 | disposition home or self-care (01) ==
LOC: LOS 11:07
PROVIDERS: PCP Family Medicine; Referring Provider Family Medicine; Visit Provider Family Medicine
DX: E03.9 Hypothyroidism, unspecified (principal); R06.00 Dyspnea, unspecified; D64.9 Anemia, unspecified
CPT/HCPCS: 36415; 83880; 84443; 85025

== ENCOUNTER → 2022-04-08 01:08 | Outpatient (CLI) | payer MEDICARE, MEDICAID, SELFPAY ==
--- NOTE | 2022-04-08 07:30 | DI.RAD_ITS ---
Exam(s) XR KNEE LT 3V AP,LAT,MUNIR EXAM: XR KNEE LT 3V AP,LAT,MUNIR CLINICAL HISTORY: left knee pain,M25.562 TECHNIQUE: COMPARISON: CR XR WRIST RT COMPLETE from 06/27/2019 CR XR WRIST LT LIMITED from 06/27/2019 FINDINGS: Six views were obtained. There is total knee joint replacement in position. The components appear w ell seated. No prior images available for comparison. No gross evidence of loosening or fracture. IMPRESSION: RADIATION DOSE DELIVERED: Total DLP
== END ==
PROVIDERS: PCP Family Medicine; Visit Provider Family Medicine
DX: M25.562 Pain in left knee (principal); Z96.652 Presence of left artificial knee joint
CPT/HCPCS: 73562

== ENCOUNTER 2022-04-11 15:19 | Emergency (ER) | payer MEDICARE, MEDICAID, SELFPAY ==
[2022-04-11 15:24] VITALS: BP 176/95; PULSE 86; RESP 18; O2SAT 93
--- NOTE | 2022-04-11 15:30 | DI.RAD_ITS ---
Exam(s) XR WRIST RT COMPLETE EXAM: XR WRIST RT COMPLETE CLINICAL HISTORY: fall. TECHNIQUE: 2D digital imaging was performed. COMPARISON: CR XR WRIST LT LIMITED from 06/27/2019 FINDINGS: 3 views No obvious acute fracture nor dislocation. There findings at the radiocarpal joint surface of the di stal radius which are possibly reflecting healed fracture site at this level. There is also slight w idening of the scapholunate distance . No obvious scaphoid fracture. Ulnar styloid tip is intact. IMPRESSION: Chronic findings at the radiocarpal joint level as described individually above. No obvious acute fr acture lines evident. DATA REPOSITORY: RADIATION DOSE DELIVERED:
--- NOTE | 2022-04-11 15:30 | DI.RAD_ITS ---
Exam(s) XR HAND RT COMPLETE EXAM: XR HAND RT COMPLETE CLINICAL HISTORY: fall/trauma. TECHNIQUE: 2D digital imaging was performed. COMPARISON: CR XR hand RT complete from 03/20/2019 FINDINGS: 3 views There are degenerative changes in the DIP joints. At the PIP joint of the 3rd-middle finger there is an avulsion fragment off the dorsal aspect of the base of the middle phalanx. Correlation with site of tenderness recommended. At the level the wrist there is deformity of the radiocarpal joint surface of the radius which appear s chronic and without an obvious acute fracture at this level. There is also slight abnormal widenin g of the adjacent scapholunate interosseous distance which also probably denotes prior significant in jury at this level with significant injury of the interosseous ligament between the scaphoid and jacob te. There is mild positive ulnar variance. No fracture of the ulnar styloid. IMPRESSION: Possible avulsion fracture of the dorsal aspect of the base of the middle phalanx of the 3rd-middle f monique, seen on the lateral view. DATA REPOSITORY: RADIATION DOSE DELIVERED:
--- NOTE | 2022-04-11 15:30 | DI.RAD_ITS ---
Exam(s) XR FOREARM RT EXAM: XR FOREARM RT CLINICAL HISTORY: fall, ulnar pain. TECHNIQUE: 2D digital imaging was performed. COMPARISON: CR RIGHT FOREARM from 03/10/2015 CR,XR XR HAND RT COMPLETE from 04/11/2022 FINDINGS: Two views No evidence of acute fracture. No elbow joint effusion. Radial head and neck appear unremarkable. Deformity of the distal radius is probably chronic. IMPRESSION: No acute formed fractures identified. DATA REPOSITORY: RADIATION DOSE DELIVERED:
--- NOTE | 2022-04-11 15:45 | ED.GENADUL_ITS ---
Discharge Plan Disposition Patient Disposition: HOME Condition: Stable Discharge Details Clinical Impression: Distal radius fracture, right, Avulsion fracture Primary Care Provider: Alphonso Murphy ED Provider: Dionte Rhodes Home Meds and New Rx's Prescriptions: No Action triamcinolone acetonide 0.1 % cream 1 applic Topical BID PRN (Reason: rash on legs) Qty: 30 2RF prednisone 20 mg tablet 10 - 40 mg PO DAILY Qty: 12 0RF Rx Instructions: 2 /day for 3 days, then 1 /day for 4 days, then 1/2 day for 4 days prednisone 20 mg tablet 40 mg PO DAILY Qty: 10 0RF Rx Instructions: furosemide 40 mg tablet 80 mg PO DAILY Qty: 90 3RF Rx Instructions: per [place] truck [place] [facility] [place] metformin 1,000 mg tablet 1,000 mg PO BID Qty: 180 3RF fluticasone propionate [Flonase Allergy Relief] 50 mcg/actuation spray,suspension 1 spray NS DAILY Qty: 1 8RF clotrimazole 1 % cream 1 applic topical TID Qty: 30 2RF nystatin 100,000 unit/gram powder 1 applic TP BID PRN (Reason: intertrigo) Qty: 30 5RF ketotifen fumarate [Zaditor] 0.025 % (0.035 %) drops 1 drp OP BID PRN (Reason: allergy symptoms) Qty: 5 2RF Rx Instructions: administer at least 8 hours apart ipratropium-albuterol 0.5 mg-3 mg(2.5 mg base)/3 mL solution for nebulization 3 ml IH QID MDD 4 nebs Qty: 180 3RF cefuroxime axetil 500 mg tablet 500 mg PO BID Qty: 10 0RF ascorbic acid (vitamin C) 1,000 MG tablet 1,000 mg PO DAILY (DME) Aerochamber Mini 1 EACH spacer 1 ea Inhalation PRN Qty: 1 Rx Instructions: DIRECTED WITH INHALER BiPAP Inhalation Gas 5 l IN DIRECTED Rx Instructions: sleep apnea ([facility] sleep lab 2013) uses with oxygen oxygen Inhalation 2 l Intranasal DIRECTED Label Comments: Continuous and uses with bipap Rx Instructions: 2L/NC continuous silver sulfadiazine 20 GM cream 1 applic Topical BID PRNQty: 60 Rx Instructions: apply to leg redness prn montelukast [Singulair] 10 mg tablet 10 mg PO DAILY Qty: 30 11RF albuterol sulfate [ProAir HFA] 90 mcg/actuation HFA aerosol inhaler 1 - 2 puff Inhalation Q6H PRN Qty: 1 11RF citalopram [Celexa] 20 mg tablet 20 mg PO DAILY Qty: 90 3RF ketoconazole 2 % cream 1 applic topical BID PRN (Reason: rash) Qty: 60 1RF sulfamethoxazole-trimethoprim [Bactrim DS] 800-160 mg tablet 1 tab PO BID Qty: 14 0RF betamethasone, augmented 0.05 % lotion 1 applic topical BID PRN (Reason: allergic reaction) Qty: 60 2RF buspirone 5 mg tablet 10 mg PO TID PRN (Reason: anxiety) Qty: 60 11RF tizanidine 2 mg tablet 2 mg PO Q8H PRN (Reason: muscle spasticity) Qty: 20 0RF alclometasone 0.05 % cream 1 applic topical BID PRN (Reason: itching) Qty: 45 1RF levothyroxine [Levo-T] 175 mcg tablet 175 mcg PO DAILY Qty: 30 2RF aspirin 325 MG tablet 325 mg PO DAILY Qty: 0 0RF prednisone 50 mg tablet 50 mg PO DAILY Qty: 4 0RF doxycycline hyclate 100 mg capsule 100 mg PO BID Qty: 14 0RF prednisone 20 mg tablet 40 mg PO DAILY Qty: 10 0RF amoxicillin-pot clavulanate 875-125 mg tablet 1 tab PO BID Qty: 14 0RF Discharge Instructions Instructions: Wrist Fracture in Adults (ED) Additional Instructions: Please keep splint in place until orthopedic reevaluates your possible wrist fracture. You may continue to use [id number] acetaminophen as needed for discomfort and apply ice to help with swelling. If you develop any new or significant worsening of symptoms please return the emergency department immediately for reassessment. Referrals: [facility] [Provider Group] (Please call the office tomorrow afternoon for arrangement of follow-up appointment.) Medical Decision Making Patient presenting to the emergency department for chief complaint of right hand and wrist injury. Patient states that she fell out of her wheelchair and during the fall landed mainly on her right hand. Patient states wrist pain, forearm pain, and distal metacarpal pain mainly to the third fourth and fifth metacarpals. Patient otherwise states mild bruising and abrasion but denies any head injury, loss of consciousness, chest pain, syncope, shortness of breath. Physical exam shows diffuse tenderness to the dorsal hand, dorsal wrist, and ulnar aspect of the forearm. Exam is limited by pain for range of motion testing but sensation is grossly intact with normal pulses and cap refill. Will perform radiological imaging and give acetaminophen pending results. Review of virtual radiologist interpretation shows a radial articular deformity with question of acute versus chronic fracture. Patient is tender to that area and states significant pain with movement also to the distal radius. While attempting to splint the patient into a sugar-tong splint radiologist did also contact us and question a possible avulsion fracture at the dorsal aspect of the base of the middle phalanx of the third finger. Patient is also tender at this area. I do feel that exam is difficult due to patient's diffuse tenderness that is difficult to isolate given any palpation elicits pain. Will continue with plan to splint as if there is a articular fracture of the distal radius and also isolate the hand. Patient placed upon orthopedic follow-up list for reassessment. Patient to continue to apply ice and use acetaminophen for discomfort. Imaging Data Radiologic Study: Imaging: X-Ray Radiologist's impression: Right wrist FINDINGS: Bones/joints: There is some offset appreciated involving the radial articular surface on the oblique view. This may be projectional artifact or nonacute posttraumatic deformity. There is no evidence for involvement of the shaft. Bony alignment is otherwise anatomic. Soft tissues: Swollen. IMPRESSION: Subtle offset of the radial articular surface, uncertain chronicity. Subtle fracture not excludable. Right Hand FINDINGS: Bones/joints: On the oblique view there is some offset of the distal radius not appreciated on previous exam. There is soft tissue swelling. No evidence for hand fracture. Soft tissues: See Bones/joints finding. IMPRESSION: Concern for possible distal radial fracture. No evidence for hand fracture. Right forearm FINDINGS: Bones/joints: There is some offset of the radius at the level of the articular surface. No evidence for shaft involvement. Chronicity uncertain. No additional deformity evident. New lines Soft tissues: There is significant soft tissue swelling involving the arm. IMPRESSION: Radial articular deformity, uncertain chronicity. See carpal report. HPI General Mode of arrival: wheelchair . Date/Time Provider Initiated Documentation: 04/11/22 15:26 . Limitations to Documentation: no limitations . Information obtained by: patient and RN notes reviewed . History of Present Illness 66 year old F presents to the emergency department with the chief comp laint of Fall with injury to right hand wrist and forearm, described as moderate and severe, with intensity rated at 10. Quality is described as sharp, and is localized to the right and upper extremity. Patient proximal. Patient started experiencing this hour(s) (2) and it has been constant. Immobilization improves symptom(s), Movement worsens symptoms . Patient notes no other symptoms.. Patient did receive the following treatments prior to arrival, none Related Data Home Medications Medication Instructions Recorded Confirmed ascorbic acid (vitamin C) 1,000 mg 1,000 mg PO DAILY 11/25/12 04/07/22 tablet inhalational spacing device ##1 12/21/13 04/07/22 (Aerochamber Mini) Bipap 5 l IN DIRECTED 07/23/14 04/07/22 Oxygen 2 l intranasal DIRECTED 12/24/14 04/07/22 aspirin 325 mg tablet 325 mg PO DAILY #0 tab-caps 06/22/15 04/07/22 silver sulfadiazine 1 % topical 1 applic topical BID PRN #60 grams 12/28/17 04/07/22 cream triamcinolone acetonide 0.1 % 1 applic topical BID PRN rash on 12/22/18 04/07/22 topical cream legs #30 grams clotrimazole 1 % topical cream 1 applic topical TID #30 grams 02/20/19 04/07/22 nystatin 100,000 unit/gram topical 1 applic topical BID PRN 02/20/19 04/07/22 powder intertrigo #30 grams ketotifen fumarate 0.025 % (0.035 1 drp ophthalmic (eye) BID PRN 04/27/19 04/07/22 %) eye drops (Zaditor) allergy symptoms #5 mL montelukast 10 mg tablet 10 mg PO DAILY #30 tabs 01/29/20 04/07/22 (Singulair) albuterol sulfate 90 mcg/actuation 1 - 2 puff inhalation Q6H PRN ##1 06/06/20 04/07/22 aerosol inhaler (ProAir HFA) citalopram 20 mg tablet (Celexa) 20 mg PO DAILY #90 tab-caps 06/06/20 04/07/22 prednisone 50 mg tablet 50 mg PO DAILY #4 tabs 07/08/20 04/07/22 prednisone 20 mg tablet 10 - 40 mg PO DAILY #12 tabs 07/15/20 04/07/22 prednisone 20 mg tablet 40 mg PO DAILY #10 tabs 10/15/20 04/07/22 fluticasone propionate 50 1 spray NS DAILY ##1 01/14/21 04/07/22 mcg/actuation nasal spray,suspension (Flonase Allergy Relief) furosemide 40 mg tablet 80 mg PO DAILY #90 tabs 01/14/21 04/07/22 metformin 1,000 mg tablet 1,000 mg PO BID #180 tabs 01/14/21 04/07/22 ketoconazole 2 % topical cream 1 applic topical BID PRN rash #60 01/30/21 04/07/22 grams sulfamethoxazole 800 1 tab PO BID #14 tabs 06/19/21 04/07/22 mg-trimethoprim 160 mg tablet (Bactrim DS) betamethasone, augmented 0.05 % 1 applic topical BID PRN allergic 06/20/21 04/07/22 lotion reaction #60 mL buspirone 5 mg tablet 10 mg PO TID PRN anxiety #60 tabs 08/25/21 04/07/22 tizanidine 2 mg tablet 2 mg PO Q8H PRN muscle spasticity 10/07/21 04/07/22 #20 tabs alclometasone 0.05 % topical cream 1 applic topical BID PRN itching 10/16/21 04/07/22 #45 grams doxycycline hyclate 100 mg capsule 100 mg PO BID #14 caps 11/17/21 04/07/22 prednisone 20 mg tablet 40 mg PO DAILY #10 tabs 11/17/21 04/07/22 levothyroxine 175 mcg tablet 175 mcg PO DAILY #30 tabs 03/15/22 04/07/22 (Levo-T) amoxicillin 875 mg-potassium 1 tab PO BID #14 tabs 03/30/22 04/07/22 clavulanate 125 mg tablet cefuroxime axetil 500 mg tablet 500 mg PO BID copd exacerb #10 tabs 04/07/22 04/07/22 ipratropium 0.5 mg-albuterol 3 mg 3 ml inhalation QID COPD 04/07/22 04/07/22 (2.5 mg base)/3 mL nebulization exacerbation/wheezing #180 mL soln Previous Rx's Medication Instructions Recorded aspirin 325 mg tablet 325 mg PO DAILY #0 tab-caps 06/22/15 triamcinolone acetonide 0.1 % 1 applic topical BID PRN rash on 12/22/18 topical cream legs #30 grams clotrimazole 1 % topical cream 1 applic topical TID #30 grams 02/20/19 nystatin 100,000 unit/gram topical 1 applic topical BID PRN 02/20/19 powder intertrigo #30 grams ketotifen fumarate 0.025 % (0.035 1 drp ophthalmic (eye) BID PRN 04/27/19 %) eye drops (Zaditor) allergy symptoms #5 mL montelukast 10 mg tablet 10 mg PO DAILY #30 tabs 01/29/20 (Singulair) albuterol sulfate 90 mcg/actuation 1 - 2 puff inhalation Q6H PRN ##1 06/06/20 aerosol inhaler (ProAir HFA) citalopram 20 mg tablet (Celexa) 20 mg PO DAILY #90 tab-caps 06/06/20 prednisone 50 mg tablet 50 mg PO DAILY #4 tabs 07/08/20 prednisone 20 mg tablet 10 - 40 mg PO DAILY #12 tabs 07/15/20 prednisone 20 mg tablet 40 mg PO DAILY #10 tabs 10/15/20 fluticasone propionate 50 1 spray NS DAILY ##1 01/14/21 mcg/actuation nasal spray,suspension (Flonase Allergy Relief) furosemide 40 mg tablet 80 mg PO DAILY #90 tabs 01/14/21 metformin 1,000 mg tablet 1,000 mg PO BID #180 tabs 01/14/21 ketoconazole 2 % topical cream 1 applic topical BID PRN rash #60 01/30/21 grams sulfamethoxazole 800 1 tab PO BID #14 tabs 06/19/21 mg-trimethoprim 160 mg tablet (Bactrim DS) betamethasone, augmented 0.05 % 1 applic topical BID PRN allergic 06/20/21 lotion reaction #60 mL buspirone 5 mg tablet 10 mg PO TID PRN anxiety #60 tabs 08/25/21 tizanidine 2 mg tablet 2 mg PO Q8H PRN muscle spasticity 10/07/21 #20 tabs alclometasone 0.05 % topical cream 1 applic topical BID PRN itching 10/16/21 #45 grams doxycycline hyclate 100 mg capsule 100 mg PO BID #14 caps 11/17/21 prednisone 20 mg tablet 40 mg PO DAILY #10 tabs 11/17/21 levothyroxine 175 mcg tablet 175 mcg PO DAILY #30 tabs 03/15/22 (Levo-T) amoxicillin 875 mg-potassium 1 tab PO BID #14 tabs 03/30/22 clavulanate 125 mg tablet cefuroxime axetil 500 mg tablet 500 mg PO BID copd exacerb #10 tabs 04/07/22 ipratropium 0.5 mg-albuterol 3 mg 3 ml inhalation QID COPD 04/07/22 (2.5 mg base)/3 mL nebulization exacerbation/wheezing #180 mL soln Allergies Allergy/AdvReac Type Severity Reaction Status Date / Time hydrocodone Allergy Severe ITCHING Verified 04/11/22 15:34 morphine Allergy Mild PRURITIS Verified 04/11/22 15:34 oxycodone Allergy Mild ITCHING Verified 04/11/22 15:34 General Stated Complaint: Orthopedic REUBEN: 4 Review of Systems Narrative: 8 systems reviewed and unremarkable except what is marked below. Cardiovascular Cardiovascular: Denies chest pain, Denies syncope and Denies dyspnea Respiratory Respiratory: Denies dyspnea Musculoskeletal Musculoskeletal: Reports as per HPI, Reports arthralgias, Reports joint swelling, Reports limited range of motion, Denies numbness and Reports tingling Integumentary/Breasts Skin/Breast: Reports other (Abrasions) Neurologic Neurologic: Denies syncope, Denies numbness and Reports tingling [facility] All Active Problems (Updated 04/11/22 @ 17:13 by Dionte Rhodes NP) Distal radius fracture, right (Acute) Avulsion fracture (Acute) COPD exacerbation (Acute) Knee pain, left (Acute) Shortness of breath (Acute) Cough (Acute) Right carpal tunnel syndrome (Acute) Bilateral hand pain (Acute) Thyroid disease (Acute) Viral URI (Acute) Low back pain (Acute) Chest wall pain (Acute) Dysphagia (Acute) Conductive hearing loss, external ear (Acute) Impacted cerumen, left ear (Acute) Ulcer of right lower extremity (Acute) Bronchitis (Acute) Cellulitis of leg, right (Acute) Fever (Acute) Thyroid enlargement (Acute) S/p thyroidectomy 2020 Mixed conductive and sensorineural hearing loss of both ears (Acute) Allergic sinusitis (Acute) Hyperglycemia (Acute) DAVID (obstructive sleep apnea) (Chronic) Community acquired pneumonia (Acute) COPD exacerbation (Acute) Sprain of scapholunate ligament (Acute 03/21/19) Allergic conjunctivitis (Acute) Wrist pain, right (Acute) Chronic obstructive pulmonary disease (Chronic) Chest pain (Acute 07/23/14) History of fasciotomy (Acute) Pleural effusion on right (Acute 05/03/14) Status post total bilateral knee replacement (Acute) Discharge planning issues (Acute) Chronic respiratory failure with hypoxia and hypercapnia (Chronic) Grief at loss of child (Acute) Depression (Chronic) Varicose veins of lower extremity (Chronic) Low back pain with sciatica (Chronic 05/03/14) [place] [facility] stenosis Advance directive on file (Acute) DVT prophylaxis (Acute) Sensorineural hearing loss, bilateral (Chronic 08/29/13) Morbid obesity (Acute 04/05/13) Knee pain, bilateral (Chronic 07/23/14) s/p bilat TKR (left infected with mult surg and decreased mobility) Goiter, nontoxic, 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 PFTs 09/2012 showed an FEV1 of 60% with improvement to 80% with bronchodilator, thought to be severe restrictive disease. Depressive disorder (Chronic) Insomnia with sleep apnea (Chronic) Obstructive sleep apnea syndrome (Chronic) Chronic headaches (Chronic) Recent Neurology consult for possible papilledema. Urinary incontinence (Chronic) On Detrol Recurrent UTI (Chronic) History of Surgical Procedure (Chronic) a. Right and left toal knee replacements. b. Left knee has been repeatedly operated on with slava surgies, three replacements. Pneumonia (Acute) finish steroids and antibiotics Right ventricular dysfunction (Chronic) Surgical History Fasciotomy, Foot (~1996) LEFT Replacement of total knee joint Bilateral; left-became [id number] surgeries Family History Mother Diabetes Personal history of malignant neoplasm LUNG Father Personal history of malignant neoplasm BRAIN Grandfather No problems noted. Grandfather No problems noted. Grandmother No problems noted. Grandmother No problems noted. Social History Smoking/Tobacco Use Status: Former Tobacco Use tobacco type: cigarettes Quit Date: 01/21/21 Second Hand Exposure: Yes Smoking risk assessment performed?: Yes Alcohol Intake: never Drug use: Never Substance use type: does not use Communication Needs: Hard of Hearing and Corrective Lenses Pets and animals: Yes Pets and animals: cat(s) Sexually active: Yes Current gender identity: female What is your relationship status?: never How often do you talk on the phone with friends or family?: decline to answer How often do you get together with friends or relatives?: decline to answer How often do you attend hinduism or nondenominational services?: decline to answer Do you belong to any clubs or organized social groups?: no Panel score (0-1 are the most socially isolated patients): 0 Seatbelt use: never Do you feel safe at home: Yes Do you feel safe in your relationship?: Yes Exam Const General: cooperative, no acute distress and not ill appearing Orientation: alert, awake and oriented x3 Resp Effort & Inspection: normal respiratory effort, able to speak in complete sentences and no respiratory distress Cardio Rate: regular rate Rhythm: regular rhythm Pulses: radial pulses present and normal peripheral pulses Skin Trauma: abrasion (To left elbow) Neuro General: patient alert, patient awake, patient oriented x3, moves all extremities and no focal motor deficits Sensory Exam: no sensory deficits noted Extrem Right upper extremity: elbow/forearm Details: tenderness Location: of the mid- shaft forearm, abnormal ROM Details: pain with active ROM during Details: with pronation and with supination and ecchymosis; no abrasions and no lacerations, wrist Details: tenderness Location: of the distal ulna and of the dorsal wrist, abnormal ROM Details: pain with active ROM during and pain with passive ROM during, normal vascular exam and radial pulse present and hand Details: normal capillary refill, neuromotor exam abnormal Details: unable to assess (Patient unwilling to move hand due to severe pain with any movement.), neurosensory exam normal (With noted slight tingling to ring finger), tendon exam abnormal Location: function limited secondary to pain, tenderness Location: of the dorsal hand Location: over the 2nd metacarpal, over the 3rd metacarpal, over the 4th metacarpal and over the 5th metacarpal, of the 3rd digit, of the 4th digit and of the 5th digit, abnormal ROM of finger Details: pain with active ROM and pain with passive ROM and swelling Location: of the dorsal hand, of the 3rd digit and of the 5th digit Course Vital Signs Vital signs: Vital Signs Pulse 86 04/11/22 15:24 Respiratory Rate 18 04/11/22 15:24 Blood Pressure 176/95 H 04/11/22 15:24 Pulse Oximetry 93 04/11/22 15:24 Pulse 86 04/11/22 15:24 Respiratory Rate 18 04/11/22 15:24 Respiratory Effort Non-Labored 04/11/22 15:30 Blood Pressure 176/95 H 04/11/22 15:24 Blood Pressure Position Sitting 04/11/22 15:24 Pulse Oximetry 93 04/11/22 15:24 Oxygen Delivery Method Room Air 04/11/22 15:24 Oxygen Flow Rate 0 04/11/22 15:24 Pain Level 10 04/11/22 15:24 Procedures Orthopedic Splinting/Casting Injury #1: Side: right Upper Extremity Injury Location: wrist Upper Extremity Immobilizer: sugartong splint and Ajay wrap
[2022-04-11] MEDS: Acetaminophen 500 MG TAB 1000 MG PO (15:54)
--- NOTE | 2022-04-11 16:29 | DI.VRAD_ITS ---
PROCEDURE INFORMATION: Exam: XR Right Hand Exam date and time: 04/11/2022 4:04 PM Age: 66 years old Clinical indication: Other: Fall TECHNIQUE: Imaging protocol: Radiologic exam of the Right hand. Views: 3 or more views. COMPARISON: CR XR hand RT complete 03/20/2019 4:57 PM FINDINGS: Bones/joints: On the oblique view there is some offset of the distal radius not appreciated on previous exam. There is soft tissue swelling. No evidence for hand fracture. Soft tissues: See Bones/joints finding. IMPRESSION: Concern for possible distal radial fracture. No evidence for hand fracture. Dictated and Authenticated by: Betty Fernandez MD. Ordering:TAYLOR Rapp MD
--- NOTE | 2022-04-11 16:36 | DI.VRAD_ITS ---
PROCEDURE INFORMATION: Exam: XR Right Wrist Exam date and time: 04/11/2022 4:05 PM Age: 66 years old Clinical indication: Patient HX: Fall, best images possible. TECHNIQUE: Imaging protocol: Radiologic exam of the Right wrist. Views: 3 or more views. COMPARISON: CR XR WRIST RT COMPLETE 06/27/2019 11:23 AM FINDINGS: Bones/joints: There is some offset appreciated involving the radial articular surface on the oblique view. This may be projectional artifact or nonacute posttraumatic deformity. There is no evidence for involvement of the shaft. Bony alignment is otherwise anatomic. Soft tissues: Swollen. IMPRESSION: Subtle offset of the radial articular surface, uncertain chronicity. Subtle fracture not excludable. Dictated and Authenticated by: Betty Fernandez MD. Ordering:TAYLOR Rapp MD
--- NOTE | 2022-04-11 16:40 | DI.VRAD_ITS ---
PROCEDURE INFORMATION: Exam: XR Right Forearm Exam date and time: 04/11/2022 4:07 PM Age: 66 years old Clinical indication: Other: Fall; Patient HX: Best images possible. TECHNIQUE: Imaging protocol: Radiologic exam of the Right forearm. Views: 2 views. COMPARISON: CR XR WRIST RT COMPLETE 04/11/2022 4:05 PM FINDINGS: Bones/joints: There is some offset of the radius at the level of the articular surface. No evidence for shaft involvement. Chronicity uncertain. No additional deformity evident. New lines Soft tissues: There is significant soft tissue swelling involving the arm. IMPRESSION: Radial articular deformity, uncertain chronicity. See carpal report. Dictated and Authenticated by: Betty Fernandez MD. Ordering:TAYLOR Rapp MD
== END 2022-04-11 17:44 | disposition home or self-care (01) ==
PROVIDERS: Emergency Provider Nurse Practitioner Family; PCP Family Medicine
DX: S52.501A Unspecified fracture of the lower end of right radius, initial encounter for closed fracture (principal); W05.0XXA Fall from non-moving wheelchair, initial encounter; S50.312A Abrasion of left elbow, initial encounter; Z87.891 Personal history of nicotine dependence
CPT/HCPCS: 29125; 99284; 73090; 73110; 73130

== ENCOUNTER 2022-04-16 08:53 | Outpatient (CLI) | payer MEDICARE, MEDICAID, SELFPAY ==
--- NOTE | 2022-04-16 08:45 | DI.RAD_ITS ---
Exam(s) XR HAND RT COMPLETE XR WRIST RT COMPLETE EXAM: XR HAND RT COMPLETE CLINICAL HISTORY: follow up TECHNIQUE: COMPARISON: CR,XR XR HAND RT COMPLETE from 04/11/2022 CR XR WRIST RT COMPLETE from 04/16/2022 FINDINGS: Three views of the wrist and three views the hand were obtained. There are mild degenerative changes at the radioulnar joint. There appears to be slight widening of the navicular lunate joint which ma y represent a prior ligamentous injury. Slight degenerative changes of the joints of the carpus note d. There are moderate IP joint degenerative changes of the right hand with mild loss of cartilaginous daniel int spaces and moderate marginal osteophyte formation at multiple sites. IMPRESSION: Oufx-de-epysrcdj degenerative changes as described above involving the wrist and hand. RADIATION DOSE DELIVERED: Total DLP
== END 2022-04-16 08:54 | disposition home or self-care (01) ==
LOC: DIORS 08:53
PROVIDERS: PCP Family Medicine; Referring Provider Family Medicine; Visit Provider Physician Assistant Surgical
DX: S52.501A Unspecified fracture of the lower end of right radius, initial encounter for closed fracture (principal); X58.XXXA Exposure to other specified factors, initial encounter
CPT/HCPCS: 99214; 73110; 73130

== ENCOUNTER 2022-04-20 18:58 | Outpatient (REF) | payer MEDICARE, MEDICAID, SELFPAY ==
[2022-04-20 21:15] LABS: Abs Immature Grans 0.01 10^3/uL (0.0-0.06); Absolute Basophil Count 0.04 10^3/uL (0.0-0.2); Absolute Eosinophil Count 0.22 10^3/uL (0.0-0.7); Absolute Lymphocyte Count 1.74 10^3/uL (1.2-3.4); Absolute Monocyte Count 0.72 10^3/uL (0.1-0.8); Basophils % 0.4; Eosinophils % 2.4; HCT 41.5 % (36.0-46.0); HGB 14.1 g/dL (11.2-15.7); Immature Grans % 0.1; Lymphocytes % 19.1; MCH 29.3 pg (27.0-33.0); MCV 86 fL (80-95); Monocytes % 7.9; Neutrophils % 70.1; Platelet Count 317 10^3/uL (130-400); RBC 4.81 10^6/uL (3.93-5.22); RDW 13.9 % (11.7-14.6); RDW-SD 43.8 fL; WBC 9.13 10^3/uL (4.4-10.8)
[2022-04-20 21:18] LABS: ESR 62 mm/hr (0-30)
[2022-04-20 21:26] LABS: ALT 27 U/L (14-59); AST 20 U/L (15-37); Albumin 2.9 g/dL (3.4-5.0); Alkaline Phosphatase 71 U/L (46-116); Anion Gap 4.8 mmol/L (3-11); BUN 13 mg/dL (7-18); Bilirubin, Total 1.7 mg/dL (0.2-1.0); C-Reactive Protein 5.92 mg/dL (0.0-0.3); CO2 34.2 mmol/L (21.0-32.0); CREATININE 0.7 mg/dL (0.55-1.02); Calcium 7.8 mg/dL (8.5-10.1); Chloride 101 mmol/L (98-107); Estimated GFR 95.92 (mL/min/1.73m2); Glucose 112 mg/dL (74-106); Potassium 3.5 mmol/L (3.5-5.1); Sodium 140 mmol/L (136-145); Total Protein 6.9 g/dL (6.4-8.2)
== END 2022-04-20 18:59 | disposition home or self-care (01) ==
LOC: LBN 18:58
PROVIDERS: PCP Family Medicine; Visit Provider Nurse Practitioner Family
DX: M79.662 Pain in left lower leg (principal); M79.89 Other specified soft tissue disorders; R70.0 Elevated erythrocyte sedimentation rate
CPT/HCPCS: 80053; 85652; 85025; 86140

== ENCOUNTER → 2022-04-21 10:48 | Outpatient (CLI) | payer MEDICARE, MEDICAID, SELFPAY ==
--- NOTE | 2022-04-21 | DI.RAD_ITS ---
Exam(s) XR KNEE LT 3V AP,LAT,MUNIR EXAM: XR KNEE LT 3V AP,LAT,MUNIR CLINICAL HISTORY: PAIN IN LT LOWER LEG, M79.662. TECHNIQUE: 2D digital imaging was performed of the left knee. Three images were obtained. Merchant ,AP, lateral and PA tunnel views were obtained. COMPARISON: CR XR KNEE LT 3V AP,LAT,MUNIR from 04/08/2022 FINDINGS: Examination limited by patient body habitus. BONES: No acute fracture is present. No bony destructive lesion is seen. The bones are osteopenic. JOINTS: The patient has a left total knee replacement. There are stable lucency seen around the femo ral component of the arthroplasty. No joint effusion is seen. SOFT TISSUE: Normal. IMPRESSION: 1. Examination limited by patient body habitus. 2. There is a left total knee replacement which appears stable. Lucency around the femoral component is unchanged. 3. No acute fracture or dislocation. DATA REPOSITORY: RADIATION DOSE DELIVERED:
--- OUTSIDE RECORDS SUMMARY | 2022-04-21 10:50 | XMS_ITS | Encounter Summary ---
:1955 Author Organization [facility] [place] [address] Care Team Providers Name Role Phone Alphonso Murphy MD Primary Care Provider [phone] Reason for Visit Consultation (Urgent) - Closed Specialty Diagnoses / Procedures Referred By Contact Refer red To Contact Dermatology Diagnoses Venous stasis ulcer of right calf limited to breakdown of skin, unspecified whether varicose veins present Amy Germain APRN [facility] Dermatology [facility] [address] [facility] [place] [address] [place] [address] Referral ID Status Reason Start Date Expiration Date Visits V isits Requested Authorized [id number] Closed Consult, 05/11/2021 05/11/2022 1 1 Test & Treat Encounter Details Date Type Department Care Team Description 05/14/2021 [facility], Localized edema; Radha GARCIA Dermatitis [address] [place] [address] [facility] [address] [place], [place] [address] (Wo rk) Social History Tobacco Use Types Packs/Day Years Used Date Former Smoker Cigarettes 3 40 Quit: 10/08/19 11 Smokeless Tobacco: Never Used Alcohol Use Standard Drinks/Week Comments No 0 (1 standard drink = 0.6 oz pure alcoho l) Sex Assigned at Date Recorded Not on file documented as of this encounter Progress Notes Charlene Lozada MD - 05/14/2021 1:45 PM EDT Images from the original note were not included. DEPARTMENT OF DERMATOLOGY Medical Dermatology Clinic Provider: CHARLENE LOZADA MD Patient's preferred name Radha Preferred contact method for results [x]Phone: Cell []myD-H []Letter Detailed phone message OK? Yes Past Medical History Date, location, treatment Melanoma N Dysplastic nevi N SCC N BCC N AKs N Other Lyphedema Recent ABIs with no significant LEAD. Family History Details Melanoma N NMSC N Other relevant family history Ovarian and Thyroid cancer RA Social History Single Quit smoking 14 years ago quir drinking 31 years ago History of Present Illness: Radha Masterson is a 66 y.o. Patient is referred to the clinic at the request of Amy Germain for RLE venous ulcers is setting of lymphedema and venous insufficiency, it has been present for about 3 months, it has been getting larger, she has been using Mepilex AG with silver, she notes that they recently switched to Hydrofera Blue which made it red, she notes that it hasa hot burning stabbing pain, she treats the pain with tylenol. Feels healthy and afebrile currently Antecedent History from wound care note 05/11/21: The open area to RLE began February 2021 as water blisters. The blisters ruptured and began draining. She was seen at a walk in clinic near her home and placed on an oral antibiotic which she completed. The drainage has persisted from her leg and is painful. She is S/P hospitalization 04/05/21 to 04/08/21 for cellulitis RLE. She was seen in the ED [facility] 05/05/21 for elevated temperature and increased drainage RLE. Shecompleted Cefazolin on 04/30/21. She has a pattern in elevated temp, drainage RLE-placed on antibiotics each time. Once antibiotics completed, symptoms return in several days. Will hold compression R/T concerns of recurring infection. She wears compression to LLE per the Lymphedema specialist in PT. Wound care was changed to Hydrofera Blue ready for antimicobial effect. Continue VNA services for wound assessment and dressing changes. normal white count. See's PT, administers compression bandaging but not lymphatic massage. Feels healthy afebrile Has had normal vascular studies two weeks ago Review of Systems: General: Feeling well. Skin: No other skin concerns. Medications: Reviewed in eD-H Allergies: Reviewed in eD-H Skin Examination: Focused skin examination of the right dobson was normal with the exception of the findings below. Assessment/Plan Favor acute contact dermatitis in the setting of chronic lymphedema. - large pale pink plaque with cobblestoning and serious drainage. - no evidence of infection - NANCI negative for fungal elements - Recommended daily augmented betamethasone ointment, followed by compression wrap. - continue with PT, lymphatic massage would be helpful if possible - Seen on floor conference for consensus opinion among dermatology faculty Wound Dressing - Rx: triamcinolone 0.1% ointment applied to areas of wound; covered with Mepilex Ag pads and ABD pads, wrapped with gauze and cotton tube wrap applied in a double layer Figure 1 Photo(s) taken and charted with patient's verbal consent. Other: ??? Reviewed wound care and PT notes, labs, vascular studies RTC: 3-4 weeks for follow up []Note routed to elementary secretary []Recall placed in scheduling system [x]Appointment scheduled at checkout Scribe attestation: Itzel Randolph [facility] has performed the documentation for this encounter in the presence of and acting as a scribe for CHARLENE LOZADA MD. I performed the above scribed service and agree with the accuracy of the documentation in this encounter. Reviewed and signed by: CHARLENE LOZADA MD Dermatology [facility] documented in this encounter Plan of Treatment [...] writing down Lifestyle On track (09/21/2019 No Brilling, Dimple K, RD your foods 12:35 PM EST) Note: Formatting of this note might be d ifferent from the original. - use the notebook - can you add some calorie information: Either google or use a book such as Wagaduu (available on Memoir) OR [employer] (if you're using a package, it will [...] cause documented in this encounter Care Teams Disbursing Agent Relationship Specialty Start Date End Date Alphonso Murphy MD PCP - General Family Medicine 02/19/[address] [place] [address] documented as of this encounter
--- OUTSIDE RECORDS SUMMARY | 2022-04-21 10:50 | XMS_ITS | Encounter Summary ---
:1955 Author Organization [facility] [place] [address] Care Team Providers Name Role Phone Alphonso Murphy MD Primary Care Provider [phone] Reason for Visit Reason Comments Medication Refill Encounter Details Date Type Department Care Team Description 08/28/2021 Refill General Surgery at [facility] Mrogan Bliar MD [facility] [place] [address] GENERAL SURGERY [phone] [place], [place] [address] (Wo rk) Social History Tobacco [...] book such as Calorie Adalberto (available on CoinKeeper) OR Gogobot (if you're using a package, it will have calorie and protein info on the back) - The other thing to write down would be grams of protein - 1500 is a good starting point for a ca jeffrey goal documented as of this encounter Visit Diagnoses Not on filedocumented in this encounter Care Teams Inside Parts Sales Relationship Specialty Start Date End Date Alphonso Murphy MD PCP - General Family Medicine 02/19/[address] [place] [address] [address] [place] [address] documented as of this encounter
--- OUTSIDE RECORDS SUMMARY | 2022-04-21 10:50 | XMS_ITS | Encounter Summary ---
:1955 Author Organization [place] [address] Care Team Providers Name Role Phone Alphonso Murphy MD Primary Care Provider [phone] Encounter Details Date Type Department Care Team Description 06/08/2021 Office Visit Wound Care at [facility] of both lower extremities; [facility] DEISY Magana Venous insufficiency of both lower extre mities; [facility] Venous stasis ulcer of right calf limited to breakdown of skin, unspecified whether varicose veins present; [facility] Contact dermatitis, unspecified contact dermatitis type, unspecified trigger Drive WOUND CENTER [place] [address] [phone] Social History Tobacco Use Types Packs/Day Years [...] Patient Instructions Patient InstructionsAmy Bhatia APRN - 06/08/2021 1:45 PM EDT Instructions: Post Visit Instructions (Home Health Agency and/or patient): Change dressing 2 x week. Mondays and ??Continue Allevyn dressings to anterior RLE. ?? 1. Remove old dressing. 2. Cleanse wound with wound cleanser or normal saline and gauze. 3. Cover wound bed with Allevyn non border. Unna???s boot instructions RLE Change the dressing Mondays and Wednesdays: Cleanse leg with dermal wound cleanser or normal saline. Apply Protective Ointment liberally to lower leg and foot with exception of wound bed. Apply Allevyn dressing to the wound bed. Wrap lower leg with Gelocast Impregnated Gel starting at just above the toes and working in a circular fashion with a 50% overlap to just below the knees. Wrap lower leg with Coban starting at just above the toes and working in a circular fashion with a 50% overlap and a <50% stretch to just below the knees. Assess patient for pain, tingling or numbness to the lower extremities. ?? Monitor for signs of infection which may include: Fever Sweats Chills Nausea, Vomiting or Diarrhea Unexplained increase in Blood Glucose levels ?? At or around the wound site: Increased pain Swelling or edema Redness Warmth ?? Purulent drainage (thick yellow/green drainage) Malodor ?? [facility] with any above symptoms Tuesday- Tuesday 8:00AM-4:30PM ([phone]). If weekends / holidays / evenings, please report to the Emergency Department.? documented in this encounter Progress Notes Amy Bhatia APRN - 06/08/2021 1:45 PM EDT Images from the original note were not included. [facility] Progress Note Reason for Visit: Ms. Masterson is here today for F/U visit R/T RLE venous ulcer in setting of venous insufficiency and Lymphedema, contact dermatitis. HPI: Radha Masterson is a 66 y.o. [...] on topical Diprolene 0.05% x 4 weeks for contact Dermatitis VNA: [facility] initiated 04/01/21 Patient Active Problem [...] of right leg L03.115 ??? Cellulitis L03.90 ??? Contact dermatitis-anterior RLE L25.9 Diagnostics: JESUS ALBERTO's:04/30/21 Referring Physician: AMY BHATIA [...] RLE venous ulcers,weeping in setting of venous insufficiency,lymphedema and contact dermatitis. She is S/P visit in Dermatology and was started on Diprolene daily to wound x 4 weeks.Fungal testingwas negative. She was seen for F/U in Dermatology on 06/03/21. She wears a compression stockings to LLE and is followed by the Lymphedema specialist. She reports a decrease in drainage from RLE. She is now wearing an UNNA boot type wrap to BLE and istolerating well. She reports no pain to RLE today. Denies constitutional symptoms of fever, chills. CV: She has SOB and wears nasal cannula O2 at 3l/min, denies chest pain GI: denies N/V, diarrhea : Denies voiding issues Diet: Appetite good Wound care:Topical steroid cream and Allevyn dressing with UUNA boot type dressing. Neuropathy: Denies Pain: Denies pain today. PE: BP-152/74 P-75 Temp-97.4 General: pleasant, in NAD, nasal cannula O2 in place. Mobility:Arrived via motorized wheelchair Edema: Lymphedema to BLE Right foot warm to touch. Varicosities: Not visible Hemosiderin staining: Present Dermatitis:to anterior RLE, resolving Callus:No Nails: Thickened Periwound: Intact Wound bed:No drainage today. Exudate:None Odor: None Right Calf: 68.0 cm Right Ankle: 35cm Anterior RLE Wound location Wound bed 06/08/21 05/18/21 05/11/21 04/13/21 Measurement Anterior RLE Erythema, weeping 15.0cm L x 12.8cm W x 0.0 cm D 18.0cm L x 15.0cm W x <0.1cm D 18.0cm L x 18.5cm W x <0.1cm D 12.5cm L x 13.6 cm W x ,0.1cm D 12.0cm L x 10.cm W Wound treatment: Wound Location:Anterior RLE Cleansed wound area with NS and Vasche using a gauze pad Analgesia:None Conservative sharp debridement: No debridement today Patient tolerated procedure well. TAC cream applied to affected area RLE. Dressing: Allevyn to open area RLE. Unna's Boot applied to right LE 1. Cleansed with normal saline, soap and water. 2. Apply moisturizing lotion was liberally applied to LE and foot with exception of wound bed. 3. Allevyn dressing was applied to the wound bed. 4. Wrapped with Gelocast Impregnated Gel starting at just above the toes and working in a circular fashion with a 50% overlap to just below the knees. 5. Wrapped with Coban starting at just above the toes and working in a circular fashion with a 50% overlap and a <50% stretch to just below the knees 6. Discussed with patient care instructions of wraps, patient verbalized understanding. Patient reassessed by AUTOMOBILE SALES CONSULTANT. Patient denies pain, tingling or numbness to LE(s). Assessment/ Plan: Radha Masterson is a 66 y.o. female here today for F/U visit R/T evaluation of RLE venous ulcers is setting of lymphedema, venous insufficiency and contact dermatitis. The open area to RLE began February 2021 as water blisters. The blisters ruptured and began draining. She is S/P hospitalization 04/05/21 to 04/08/21 for cellulitis RLE. She was seen in the ED [facility] 05/05/21 for elevated temperature and increased drainage RLE. Shecompleted Cefazolin on 04/30/21. She has a pattern of elevated temp, drainage RLE-placed on antibiotics each time. Once antibiotics completed, symptoms return in several days.Recent ABIs with no significant LEAD. Seen in Dermatology and started on Diprolene daily to RLE x 4 weeks. Fungal testing was negative. The area of eythema has decreased in size over the course of several weeks and drainage has stopped.Thewound continues to improve. Wound care with topical steroid cream to anterior RLE. Once healed and cleared from Dermatology, she may be able to return to the Lymphedema specialist forBLE or through VNA. Continue VNA services for wound assessment and dressing changes but decrease to 2 x week. Verbal and written wound care instructions were provided. She will call with any questions or concerns. Will plan F/U 2 weeks wound center. She agreed to POC. She knows to be seen sooner with any new or worsening symptoms. Follow up: 2 weeks Instructions: Post Visit Instructions (Home Health Agency and/or patient): Change dressing 2 x week. Mondays and ??Continue Allevyn dressings to anterior RLE. ?? 1. Remove old dressing. 2. Cleanse wound with wound cleanser or normal saline and gauze. 3. Cover wound bed with Allevyn non border. Unna???s boot instructions RLE Change the dressing Mondays and Wednesdays: Cleanse leg with dermal wound cleanser or normal saline. Apply Protective Ointment liberally to lower leg and foot with exception of wound bed. Apply Allevyn dressing to the wound bed. Wrap lower leg with Gelocast Impregnated Gel starting at just above the toes and working in a circular fashion with a 50% overlap to just below the knees. Wrap lower leg with Coban starting at just above the toes and working in a circular fashion with a 50% overlap and a <50% stretch to just below the knees. Assess patient for pain, tingling or numbness to the lower extremities. ?? Monitor for signs of infection which may include: Fever Sweats Chills Nausea, Vomiting or Diarrhea Unexplained increase in Blood Glucose levels ?? At or around the wound site: Increased pain Swelling or edema Redness Warmth ?? Purulent drainage (thick yellow/green drainage) Malodor ?? [facility] with any above symptoms Tuesday- Tuesday 8:00AM-4:30PM ([phone]). If weekends / holidays / evenings, please [...] google or use a book such as iConclude (available on NexPlanar) OR Brandcast (if you're using a package, it will have calorie and protein info on the back) - The other thing to write down would be grams of protein - 1500 is a good starting point for a ca jeffrey goal documented as of this encounter Visit Diagnoses Diagnosis Lymphedema of both lower extremities Venous insufficiency of both lower extre mities Venous stasis ulcer of right calf limite d to breakdown of skin, unspecified whether varicose veins present Contact dermatitis, unspecified contact dermatitis type, unspecified trigger documented in this encounter Care Teams Candy Butcher Relationship Specialty Start Date End Date Alphonso Murphy MD PCP - General Family Medicine 02/19/[address] [place] [address] [address] [place] [address] documented as of this encounter
--- OUTSIDE RECORDS SUMMARY | 2022-04-21 10:50 | XMS_ITS | Encounter Summary ---
:1955 Author Organization [facility] [address] Care Team Providers Name Role Phone Alphonso Murphy MD Primary Care Provider [phone] Encounter Details Date Type Department Care Team Description 07/30/2021 Telephone Pulmonology at [facility] [place] [address] Social History Tobacco Use Types Packs/Day [...] google or use a book such as Aspects Software (available on Skills Matter) OR Localisto (if you're using a package, it will have calorie and protein info on the back) - The other thing to write down would be grams of protein - 1500 is a good starting point for a ca jeffrey goal documented as of this encounter Visit Diagnoses Not on filedocumented in this encounter Care Teams Fire Watchman Relationship Specialty Start Date End Date Alphonso Murphy MD PCP - General Family Medicine 02/19/[address] [place] [address] documented as of this encounter
--- OUTSIDE RECORDS SUMMARY | 2022-04-21 10:50 | XMS_ITS | Encounter Summary ---
:1955 Author Organization [facility] [place] [address] Care Team Providers Name Role Phone Alphonso Murphy MD Primary Care Provider Encounter Details Date Type Department Care Team Description 01/27/2022 Orders Only General Surgery at [facility] [place] [address] Social History Tobacco Use Types Packs/Day [...] s/p thyroidectomy for goiter 03/03/[address] Signh. She leaves a vm stating she still [...] google or use a book such as CASTT (available on ActiveReplay) OR [employer] (if you're using a package, it will have calorie and protein info on the back) - The other thing to write down would be grams of protein - 1500 is a good starting point for a ca jeffrey goal documented as of this encounter Visit Diagnoses Not on filedocumented in this encounter Care Teams Grassland Conservationist Relationship Specialty Start Date End Date Alphonso Murphy MD PCP - General Family Medicine 02/19/[address] [place] [address] documented as of this encounter
--- OUTSIDE RECORDS SUMMARY | 2022-04-21 10:50 | XMS_ITS | Encounter Summary ---
:1955 Author Organization [facility] [place] [address] Care Team Providers Name Role Phone Alphonso Murphy MD Primary Care Provider [phone] Encounter Details Date Type Department Care Team Description 05/18/2021 Office Visit Wound Care at [facility] Ven ous stasis ulcer of right calf limited to breakdown of skin, unspecified whether varicose veins present; [facility] CORPORATE FINANCIAL ANALYST Lymphedema of both lower extremities [facility] [place] W[facility] [place] [phone] Social History Tobacco Use Types Packs/Day Years [...] (thick yellow/green drainage) Malodor ?? Contact the [facility] with any above symptoms Tuesday- Tuesday 8:00AM-4:30PM ([phone]). If weekends / holidays / evenings, please report to the Emergency Department.? documented in this encounter Progress Notes Amy Bhatia APRN - 05/18/2021 1:45 PM EDT Images from the original note were not included. [facility] Progress Note Reason for [...] topical Diprolene 0.05% x 4 weeks VNA: [facility] initiated 04/01/21 Patient Active Problem [...] RLE. She was seen in the ED [facility] 05/05/21 for elevated temperature and increased [...] with any above symptoms Tuesday- Tuesday 8:00AM-4:30PM ([phone]). If weekends / holidays / evenings, please [...] google or use a book such as Macheen (available on Sportsy) OR [employer] (if you're using a package, it will [...] extremities documented in this encounter Care Teams Registrar College Or University Relationship Specialty Start Date End Date Alphonso Murphy MD PCP - General Family Medicine 02/19/[address] [place] [address] documented as of this encounter
--- OUTSIDE RECORDS SUMMARY | 2022-04-21 10:50 | XMS_ITS | Encounter Summary ---
:1955 Author Organization [facility] [place] [address] Care Team Providers Name Role Phone Alphonso Murphy MD Primary Care Provider [phone] Encounter Details Date Type Department Care Team Description 05/12/2021 Telephone Physical Therapy at [facility] [place] [address] Social History Tobacco Use Types Packs/Day [...] fax confirmation from sending to [facility] #[phone]. For Emmett Mcintosh, PT on Tuesday05/11/2021 documented [...] or use a book such as Calorie iLumi Solutions (available on Amgen) OR Nintu Oy (if you're using a package, it will have calorie and protein info on the back) - The other thing to write down would be grams of protein - 1500 is a good starting point for a ca jeffrey goal documented as of this encounter Visit Diagnoses Not on filedocumented in this encounter Care Teams Olive Pitter Relationship Specialty Start Date End Date Alphonso Murphy MD PCP - General Family Medicine 02/19/[address] [place] [address] documented as of this encounter
--- OUTSIDE RECORDS SUMMARY | 2022-04-21 10:50 | XMS_ITS | Encounter Summary ---
:1955 Author Organization [facility] [place] [address] Care Team Providers Name Role Phone Alphonso Murphy MD Primary Care Provider [phone] Encounter Details Date Type Department Care Team Description 07/29/2021 Telephone Pulmonology at [facility] [place] [address] Social History Tobacco Use Types Packs/Day [...] google or use a book such as Credit Coach (available on Yingying Licai) OR fabrik (if you're using a package, it will have calorie and protein info on the back) - The other thing to write down would be grams of protein - 1500 is a good starting point for a ca jeffrey goal documented as of this encounter Visit Diagnoses Not on filedocumented in this encounter Care Teams Collateral Analyst Relationship Specialty Start Date End Date Alphonso Murphy MD PCP - General Family Medicine 02/19/[address] [place] [address] documented as of this encounter
--- OUTSIDE RECORDS SUMMARY | 2022-04-21 10:50 | XMS_ITS | Encounter Summary ---
:1955 [place] [address] Care Team Providers Name Role Phone Alphonso Murphy MD Primary Care Provider [phone] Encounter Details Date Type Department Care Team Description 06/10/2021 Telephone Wound Care at [facility] [place] [address] Social History Tobacco Use Types Packs/Day [...] google or use a book such as velingo (available on NurseLiability.com) OR Layer3 TV (if you're using a package, it will have calorie and protein info on the back) - The other thing to write down would be grams of protein - 1500 is a good starting point for a ca jeffrey goal documented as of this encounter Visit Diagnoses Not on filedocumented in this encounter Care Teams Chargeback Specialist Relationship Specialty Start Date End Date Alphonso Murphy MD PCP - General Family Medicine 02/19/[address] [place] [address] documented as of this encounter
--- OUTSIDE RECORDS SUMMARY | 2022-04-21 10:50 | XMS_ITS | Encounter Summary ---
:1955 [place] [address] Care Team Providers Name Role Phone Alphonso Murphy MD Primary Care Provider [phone] Encounter Details Date Type Department Care Team Description 06/23/2021 Telephone Wound Care at [facility] [place] [address] Social History Tobacco Use Types Packs/Day [...] google or use a book such as Fara (available on Spowit) OR Maraquia (if you're using a package, it will have calorie and protein info on the back) - The other thing to write down would be grams of protein - 1500 is a good starting point for a ca jeffrey goal documented as of this encounter Visit Diagnoses Not on filedocumented in this encounter Care Teams Airset Caster Relationship Specialty Start Date End Date Alphonso Murphy MD PCP - General Family Medicine 02/19/[address] [place] [address] documented as of this encounter
--- OUTSIDE RECORDS SUMMARY | 2022-04-21 10:50 | XMS_ITS | Clinical Summary ---
:1955 Author Organization [facility] Address [place] [id number] Care Team Providers Name Role Phone Alphonso Murphy MD Primary Care Provider Allergies Active Allergy Reactions Severity Noted Date Comments Iodine And Iodide rash Containing Products Morphine Rash Low 06/11/2014 Other reaction( s): PRURITIS Oxycodone Rash 06/11/2014 Red Blood Cells Other (See Comments) High 03/02/2021 Anti bodies-Difficult to Crossmatch DO NOT REMOVE Please contact the Blood Bank at [phone] for questions. Medications Medication Sig Dispensed Refills [...] route daily 50 mcg/actuation as needed. 04/06 [place], Suspension Patient states that she only takes [...] or use a book such as Calorie EdeniQ (available on Allthetopbananas.com) OR [employer]aceuticals.[employer] Millennium Materials (if you're using a package, it will have calorie and protein info on the back) - The other thing to write down would be grams of protein - 1500 is a good starting point for a ca jeffrey goal Insurance Payer Benefit Plan / Subscriber ID Effective Dates Phone Addre ss Type Group [facility] [id number] 2019-Presen [phone] [address] [address] MEDICARE MEDICARE t [address] [place] [address] [place] [id number] 2021-Prese [phone] [address] [place] [address] Advance Directives Latest Code Status on File [...] capacity to make decision: Yes Care Teams Puppy Sitter Relationship Specialty Start Date End Date Alphonso Murphy MD PCP - General Family Medicine 02/19/[address] [place] [address] (Hlte)
--- OUTSIDE RECORDS SUMMARY | 2022-04-21 10:50 | XMS_ITS | Encounter Summary ---
:1955 [place] [address] Care Team Providers Name Role Phone Alphonso Murphy MD Primary Care Provider [phone] Encounter Details Date Type Department Care Team Description 06/03/2021 Office Visit Dermatology at [facility] Huber Avalos MD Localized edema; [facility] Dermatitis [address] [place] [address] [facility] [phone] RD-DERMATOLOGY [place], [place] [address] (Wo rk) Social History Tobacco [...] around the wound site. Last visit at [facility] Derm: 05/14/2021 Last visit with this provider: [...] for wound care follow-up []Note routed to psychiatric secretary []Recall placed in scheduling system [x]Appointment scheduled at checkout Scribe attestation: Roxanne Decker has performed the documentation for this encounter in the presence of and acting as a scribe for Nam Avalos MD. I performed the above scribed service and agree with the accuracy of the documentation in this encounter. Reviewed and signed by: Nam Avalos MD Dermatology [facility] Patient seen and evaluated with staff line lead: Charlene Lozada MD Dermatology [facility] Charlene Lozada MD - 06/03/2021 3:00 [...] google or use a book such as Oscilla Power (available on TriActive) OR VirtualScopics.Mint Labs (if you're using a package, it [...] cause documented in this encounter Care Teams Data Warehouse Specialist Relationship Specialty Start Date End Date Alphonso Murphy MD PCP - General Family Medicine 02/19/[address] [place] [address] documented as of this encounter
--- OUTSIDE RECORDS SUMMARY | 2022-04-21 10:50 | XMS_ITS | Encounter Summary ---
:1955 Author Organization [place] [address] Care Team Providers Name Role Phone Alphonso Murphy MD Primary Care Provider [phone] Encounter Details Date Type Department Care Team Description 10/01/2021 [facility] [place] [address] Social History Tobacco Use Types Packs/Day [...] 10/01/2021 3:50 PM EST Phone call to [facility]. Patient was discharged from services in June. Last office note from Wound Care states to follow up in 2 weeks. Phone call to Radha Garcia states her lower leg wounds are all healed as of June. She continues to use compression andcurrently does not have any open areas. Patient is aware to call for any further concerns. Maris Jurado LPN documented in this encounter [...] google or use a book such as US Drum Supply (available on MyLife) OR RxEye (if you're using a package, it will have calorie and protein info on the back) - The other thing to write down would be grams of protein - 1500 is a good starting point for a ca jeffrey goal documented as of this encounter Visit Diagnoses Not on filedocumented in this encounter Care Teams Mandrel Puller Relationship Specialty Start Date End Date Alphonso Murphy MD PCP - General Family Medicine 02/19/[address] [place] [address] [address] [place] [address] documented as of this encounter
--- OUTSIDE RECORDS SUMMARY | 2022-04-21 10:51 | XMS_ITS | Encounter Summary ---
:1955 Author Organization [facility] Address [address] [place] [address] Care Team Providers Name Role Phone Alphonso Murphy MD Primary Care Provider [phone] Reason for Visit Physical Therapy (Routine) - Closed Specialty Diagnoses / Procedures Referred By Contact Refer red To Contact Physical Therapy Diagnoses S/P total thyroidectomy Lymphedema S/P total thyroidectomy Lisa Singh MD [facility] Pt Rehab Procedures Evaluate and Treat [facility] [address] [place] [address] [place] [address] Phone: Fax: Referral ID Status Reason Start Date Expiration Date Visits V isits Requested Authorized [id number] Closed Evaluate and 03/19/2021 03/19/2022 12 12 Treat Encounter Details Date Type Department Care Team Description 05/11/2021 Office Visit Physical Therapy at [facility] Lozano of both [facility], PT lower extremities [address] [place] PHYSICAL MEDICINE & [address] REHABILITAT [phone] [place] [address] Social History Tobacco Use Types Packs/Day Years Used Date Former Smoker Cigarettes 3 40 Quit: 10/08/19 11 Smokeless Tobacco: Never Used Alcohol Use Standard Drinks/Week Comments No 0 (1 standard drink = 0.6 oz pure alcoho l) Sex Assigned at Date Recorded Not on file documented as of this encounter Miscellaneous Notes Initial Evaluation - FernfrancisMalgorzata mortensen, PT - 05/11/2021 10:15 AM EDT LE LYMPHEDEMA INITIAL EXAMINATION Date of Exam/First treatment: Date of Onset chronic several years Referring Provider: Lisa Singh, Diagnosis and pertinent co-morbidities: Lymphedema bi lateral LE Medicare Cert Period: 05/11/2021 - 08/10/2021 CURRENT HISTORY: Radha Masterson is a 66 y.o. female with a long history of many years LE lymphedema, current infection on R LE and is on anti biotics. She has a custom stocking on L with a good fit but is old. She was fit for it at [facility] in [facility] a few years ago. She was also fit for R leg, but no longer fits. She had been wearing them daily, but no night time garments. She would like to be followed closer to her home near [facility]. She is here today to work on L LE so it does not become infected also. Pt is mostly uses a wheel chair, lives alone with VNA services. Past Medical History: Diagnosis Date ??? JODY [...] walker when walks a very short distance Work History and personal factors affecting plan of care : lives alone, doesn't drive, obese, Pain: Heavy feeling, hard to life which causes muscular pain, gives out 0-5/10 Keeps her awake at night R Hurts all the time, sharp, stabbing, fire like.3-8/10 Medication only takes the edge off FUNCTIONAL LIMITATIONS: On a difficulty scale with 0 being unable to perform an activity, and 10 being able to perform at a pre injury level at high risk of continued infection, unable to walk, bath, drive or do other ADS. CLINICAL FINDINGS: 1) observation, posture Sitls in wheel chair, Large swollen legs bi lat, R is leaking clear fluid, will be seeing wound care following this appointment for dressing change. R leg not un dress, weeping through pants. 2) ROM full knee extension. Limited in flexion due to swelling and fullness in calf 3) strength -3/5 4) palpation/inspection No tenderness with palpation noted 5) LE circumferences (cm) Right Left Mid foot 27.0 Ankle 38.0 Calf 76.0 D 66.0 Knee Knee +12 Upper thigh A-D Length A-G Length CLINICAL EVALUATION AND DIAGNOSIS: Pt with chronic lymphedema now with cellulitis in R LE [facility] to benefit from trial of bandaging on L while R is healing, fitwith new garments including new stocking when ready and ? Of Ready Wraps for L knee high. Clinical presentation: Stable Evolving Unstable Notes: Clinical decision making of high complexity using standardized patient assessment instrument and measurable assessment of functional outcome. The patient's rehabilitation potential is fair GOALS: Therapy Short Term Goals 4 weeks 1. decrease swelling so that patient can be fit with compression garments. 2. independent in self care. 3. Able to don and doff independently Therapy Senior Living Goals 6 weeks 1. maintain reduction in swelling. 2. Able to re order garments as needed INITIAL TREATMENT INCLUDED: Evaluation, education about garments, bandaging of L lower leg which feels comfortable to pt, referral sent to [facility] in [facility] near pt's home. Pt given information about this and my card and contactinfmormation PLAN: Frequency and duration: as needed Treatment: compression bandaging Exercise teaching self care garment fitting The plan has been discussed with the patient and she has agreed with it. Total Treatment time: 60 minutes Total Timed Code Treatment: 0 minutes eval 30 manual therapy MALGORZATA LOZANO, PT, PT documented in this encounter Plan of [...] or use a book such as Calorie Aegis Lightwave (available on Busap) OR The News Lens (if you're using a package, it will have calorie and protein info on the back) - The other thing to write down would be grams of protein - 1500 is a good starting point for a ca jeffrey goal documented as of this encounter Visit Diagnoses Diagnosis Lymphedema of both lower extremities documented in this encounter Care Teams Stitcher Feeder Relationship Specialty Start Date End Date Alphonso Murphy MD PCP - General Family Medicine 02/19/[address] [place] [address] documented as of this encounter
--- OUTSIDE RECORDS SUMMARY | 2022-04-21 10:51 | XMS_ITS | Encounter Summary ---
:1955 Author Organization [facility] [place] [address] Care Team Providers Name Role Phone Alphonso Murphy MD Primary Care Provider [phone] Reason for Visit Reason Comments Wound Check Right leg Auth/Cert Specialty Diagnoses / Procedures Referred By Contact Refer red To Contact Diagnoses Cellulitis Procedures EMERGENCY OBSVO Referral ID Status Reason Start Date Expiration Date Visits Requ ested Visits Authorized [id number] 1 1 Encounter Details Date Type Department Care Team Description 04/19/2021 - Emergency Emergency Department Dede Perez MD [facility] [place] [address] Cellulitis (Primary 04/20/2021 Alisa Cooper MD [facility] EMERGENCY [place] [address] Dx) [facility] Dionte Ray MD [facility] [place] [address] [place] [address] Social History Tobacco Use Types Packs/Day Years [...] cannot be sent through Care Everywhere. Cellulitis (Georgian)documented in this encounter Medications at Time of [...] 06/2019 (FLONASE) 50 route daily as mcg/actuation Voca, needed. 04/06 Patient Suspension states that she [...] home cefazolin last Tuesday.??She was admitted to [facility] 04/05-04/08 for her cellulitis. ?? [...] PCR Not Detected Not Detected SARS-CoV-2 Source COREMAKER SUPERVISOR Swab Pending Studies and Lab Data: n/a [...] REMOVE Please contact the Blood Bank at [phone] for questions. ??? Iodine And Iodide Containing Products rash ??? Oxycodone Rash ??? Morphine Rash Other reaction(s): PRURITIS Future Appointments and Orders Future Appointments and Orders Future Appointments Provider Department Dept Phone 04/22/2021 2:30 PM Jina Castrejon Vascular Lab at [facility] Arrive at: [facility] Manager Area 3V [phone] 04/22/2021 3:15 PM Amy Germain APRN Wound Care at [facility] Arrive at: [facility] Manager Area 4M [phone] 07/28/2021 10:30 AM Mike Robles MD Pulmonology at [facility] Arrive at: [facility] Center Manager Area 5C [phone] General Instructions You were evaluated emergency department [...] contact the Clinical Decision Unit through the [facility] Neighborhood Worker . Morgan Doll PA 04/20/21 1142 Emily [...] REMOVE Please contact the Blood Bank at [phone] for questions. ??? Iodine And Iodide Containing [...] 1.57) performed by Lisa Singh MD at [facility] OR ??? PRG US GUIDE INTRAOP N/A 03/03/2021 ULTRASONIC GUIDANCE, INTRAOP (WRVU 1.2) performed by Lisa Singh MD at [facility] OR ??? PRO THYROIDECTOMY=SUBSTERNAL, TRANSCERV Bilateral 03/03/2021 THYROIDECTOMY, INCL. SUBSTERNAL, CERVICAL APPROACH (WRVU 17.62) performed by Lisa Singh MD at [facility] OR Social History Socioeconomic History ??? [...] on file Social History Narrative Lives in [facility]. Daughter lives with her for now. [...] cefazolin last Tuesday. She was admitted to [facility] medicine 04/05-04/08 for her cellulitis. She reports [...] src: Temporal SpO2: 97 % O2 Device: MT O2 Flow Rate (L/min): 3 L/min Physical [...] the patient. Vianca Zuniga MD Resident 04/19/21 9575 ED ATTENDING ATTESTATION NOTE The patient was [...] above. Marion Perez MD 04/21/21 0856 Chang Diego RN - 04/19/2021 5:57 PM EDT Pt [...] or use a book such as Calorie Bubbles (available on Shoplocal) OR Boatbound (if you're using a package, it will [...] Results COVID-19 PCR (04/19/2021 7:09 PM EDT) [facility] Method Time Signature SARS-CoV-2 Not Detected Not Detected BING RNA PCR [facility] Comment: This result should [...] using the Simplexa COVID-19 Direct Assay by AdorStylecaleb Avocado™ as authorized by the FDA issued Emergency [...] Department of Pathology and Laboratory Medicine at [facility], certified under the Clinical Laboratory Improvement [...] clinical management guidance information are available at [facility] CDC Coronavirus Disease 2019 (COVID-19) webpage under Information fo r Healthcare Professionals (https://www.cdc.gov/coronavirus/2019-nc ov/hcp/index.html). Additional information about this and ot her EUA tests can be found in provider and patient fact sheets at the following FDA website: https://www.fda.gov/medical-devices/gmudwxgiueu-zvcwdja-5188-yjzya-59-mkpcrhfjc- urd-wrjiwqvcutwuzo-erzfbvi-devices/hnwmw-ieulgivkdlx-bskx SARS-CoV-2 Source COREMAKER SUPERVISOR Swab [facility] Specimen (Source) Anatomical Collection Method Collection Time Re ceived Time Location / / Volume Laterality Nasopharyngeal Swab 04/19/2021 7:09 04/19 PM EDT 8:11 PM EDT Comment: Symptoms->Surveillance Resulting Agency Comment Spec In Lab Marion Perez MD MICROBIOLOGY - GENERAL ORDER MARY Performing Organization Address City/State/ZIP Code Phon e Number [place] [id number] LAB[address]ORY Drive Differential, Automated (04/19/2021 6:40 PM EDT) athologist Signature Neutrophils % 62.7 % [facility] Neutr Abs (ANC) 5.82 1.70 - [facility] 6.10 [facility] x10(3)/[facility] LABORATORY Lymphocytes % 23.9 % [facility] Lymphocytes Abs 2.2 0.9 - 3.2 [facility] x10(3)/[facility] LABORATORY Monocytes % 9.6 % [facility] Monocyte Abs 0.9 0.3 - 0.9 [facility] x10(3)/[facility] LABORATORY Eosinophils % 3.1 % [facility] Eosinophils Abs 0.3 0.0 - 0.4 [facility] x10(3)/[facility] LABORATORY Basophils % 0.4 % [facility] Basophils Abs 0.0 0.0 - 0.1 [facility] x10(3)/[facility] LABORATORY Immature Gran % 0.30 % [facility] Comment: Immature granulocytes(IG's)percentage an d absolute count will include metamyelocytes, myelocytes, and promyelo cytes. Blood smears from CBCs yielding IG's will be scanned manually for concor dance. If this scan disagrees with the automated IG or if promyelocytes are not ed, a manual differential will be performed. Surekha Gran Abs 0.03 0.00 - 0.04 x10(3)/[facility] MAR Y [facility] Specimen Anatomical Collection Method Collection Time Receive d Time (Source) Location / / Volume Laterality Blood 04/19/2021 6:40 PM 6:51 EDT PM EDT Resulting Agency Comment Spec In Lab Vianca Zuniga MD HEMATOLOGY ORDERABLES Performing Organization Address City/State/[place] [address] Hemogram (04/19/2021 6:40 PM EDT) P athologist Signature WBC 9.3 4.0 - 9.5 [facility] x10(3)/[facility] LABORATORY RBC 5.05 4.00 - [facility] 5.21 [facility] x10(6)/[facility] LABORATORY Hemoglobin 14.4 11.7 - [facility] 15.5 gm/dL [facility] Hematocrit 42.9 35.7 - [facility] 45.8 % [facility] MCV 85.0 82.6 - [facility] 94.4 [facility] LABORATORY MCH 28.5 27.1 - [facility] 32.0 pg [facility] MCHC 33.6 31.7 - [facility] 35.0 gm/dL [facility] Platelets 282 145 - 357 [facility] x10(3)/[facility] LABORATORY RDWSD 42.3 37.0 - [facility] 46.0 [facility] RDWCV 13.6 11.5 - [facility] 14.1 % [facility] MPV 10.7 7.6 - 12.9 [facility] LABORATORY nRBC % Auto 0.0 % [facility] nRBC Abs Auto 0.000 0.000 - [facility] 0.000 [facility] x10(3)/[facility] LABORATORY Specimen Anatomical Collection Method Collection Time Receive d Time (Source) Location / / Volume Laterality Blood 04/19/2021 6:40 PM 6:51 EDT PM EDT Resulting Agency Comment Spec In Lab Vianca Zuniga MD HEMATOLOGY ORDERABLES Performing Organization Address City/State/[place] [address] Basic Metabolic Panel (non-fasting) (04/19/2021 6:40 PM EDT) P athologist Signature Glucose Lvl 137 65 - 199 [facility] mg/dL [facility] Comment: Diabetes: >=200 mg/dL plus symp toms BUN 18 8 - 18 mg/dL [facility] Creatinine 0.73 0.70 - 1.20 mg/dL [facility] Sodium 139 135 - 145 mmol/L [facility] Potassium 3.8 3.5 - 5.0 mmol/L [facility] Comment: Please note: ??Patients with WBC >100,00 0 may have falsely elevated Potassium levels. ??For accurate Potassium quantif ication in these patients send serum separator tube (gold top) for subsequent determinations. ??Contact the Clinical Chemistry Laboratory if there are any qu estions. Chloride 101 98 - 107 mmol/L [facility] CO2 28 22 - 31 mmol/L [facility] Anion Gap 10 5 - 15 mmol/L [facility] Calcium 8.7 8.5 - 10.5 mg/dL [facility] Estimated GFR 87 >=60 mL/min/1.73 m?? [facility] [...] Organization Address City/State/ZIP Code Phon e Number [place] [id number] HOS[address]ITAL LAB[address]ORY [address] documented in this encounter [...] Routine documented in this encounter Care Teams Veterinary Technician Instructor Relationship Specialty Start Date End Date Alphonso Murphy MD PCP - General Family Medicine 02/19/16 [address] [place] [address] documented as of this encounter
--- OUTSIDE RECORDS SUMMARY | 2022-04-21 10:51 | XMS_ITS | Encounter Summary ---
:1955 Author Organization [facility] [place] [address] Care Team Providers Name Role Phone Alphonso Murphy MD Primary Care Provider [phone] Reason for Referral Consultation (Urgent) - Closed Specialty Diagnoses / Procedures Referred By Contact Refer red To Contact Wound Care Diagnoses Venous stasis ulcer of calf, unspecified laterality, unspecified ulcer stage, unspecified whether varicose veins present Lisa Singh MD [facility] D R [facility] [place] [address] [place] [address] Referral ID Status Reason Start Date Expiration Date Visits V isits Requested Authorized [id number] Closed Consult, 03/23/2021 03/23/2022 1 1 Test & Treat Encounter Details Date Type Department Care Team Description 03/23/2021 Office Visit General Surgery at Lisa Singh MD Venous stasis ulcer of [facility] calf, unspecified [facility] DR david, [facility] GENERAL SURGERY unspecified ulcer [place], [place] [address] stage, unspecified [phone] whether varicose veins present Social History Tobacco [...] google or use a book such as Stukent (available on DreamLines) OR RESPACE (if you're using a package, it will [...] nt documented in this encounter Care Teams Inside Sales Associate Relationship Specialty Start Date End Date Alphonso Murphy MD PCP - General Family Medicine 02/19/[address] [place] [address] documented as of this encounter
--- OUTSIDE RECORDS SUMMARY | 2022-04-21 10:51 | XMS_ITS | Encounter Summary ---
:1955 Author Organization [facility] [place] [address] Care Team Providers Name Role Phone Alphonso Murphy MD Primary Care Provider [phone] Encounter Details Date Type Department Care Team Description 03/23/2021 Laboratory Lab 3L Bing S/P total thyro [place] [phone] Social History Tobacco Use Types Packs/Day Years [...] google or use a book such as InStitchu (available on Pawngo) OR [employer] Palladium (if you're using a package, it will [...] Signature PTH 31 15 - 65 BING [place] pg/mL [facility] Specimen Anatomical Collection Method Collection Time Receive d Time (Source) Location / / Volume Laterality Blood 03/23/2021 10:13 03/23/2021 AM EDT 10:21 AM EDT Resulting Agency Comment Spec In Lab Lisa Singh MD CHEMISTRY ORDERABLES Performing Organization Address City/[facility]/[place] [address] Calcium (03/23/2021 10:13 AM EDT) P athologist Signature Calcium 9.0 8.5 - 10.5 BING [place] mg/dL [facility] Specimen Anatomical Collection Method Collection Time Receive d Time (Source) Location / / Volume Laterality Blood 03/23/2021 10:13 03/23/2021 AM EDT 10:21 AM EDT Resulting Agency Comment Spec In Lab Lisa Singh MD CHEMISTRY ORDERABLES Performing Organization Address City/[facility]/ZIP [facility] [place] [address] documented in this encounter Visit Diagnoses Diagnosis S/P total thyroidectomy Other postprocedural status documented in this encounter Care Teams Director Of Intelligence Relationship Specialty Start Date End Date Alphonso Murphy MD PCP - General Family Medicine 02/19/[address] [place] [address] documented as of this encounter
--- OUTSIDE RECORDS SUMMARY | 2022-04-21 10:51 | XMS_ITS | Encounter Summary ---
:1955 Author Organization [facility] [place] [address] Care Team Providers Name Role Phone Alphonso Murphy MD Primary Care Provider [phone] Encounter Details Date Type Department Care Team Description 04/30/2021 [facility] ulcer of right calf limited to breakdown of skin, unspecified whether varicose veins present; [facility] Venous in sufficiency of both lower extremities; Hospital Lymphedema [place] [id number] Social History Tobacco Use Types Packs/Day Years [...] book such as Calorie Adalberto (available on CebaTech) OR ZoeMob (if you're using a package, it will [...] Component Value Ref Test Analysis Performed At [facility] Motorpaneer Range Method Time Signature VB Text Department: Vascular Surgery Lab VASCUBASE Report Patient: [id number] (CYN MASTERSON) CPT: 65804 ICD10: I87.2;L97.211;I89.0;I83.012 Referring Physician: AMY BHATIA ?? [...] extremities documented in this encounter Care Teams Orchard Manager Relationship Specialty Start Date End Date Alphonso Murphy MD PCP - General Family Medicine 02/19/[address] [place] [address] documented as of this encounter
--- OUTSIDE RECORDS SUMMARY | 2022-04-21 10:51 | XMS_ITS | Encounter Summary ---
:1955 Author Organization [facility] [place] [address] Care Team Providers Name Role Phone Alphonso Murphy MD Primary Care Provider [phone] Reason for Referral Diagnostic Test (Routine) - Closed Specialty Diagnoses / Procedures Referred By Contact Refer red To Contact Diagnoses Venous stasis ulcer of right calf limited to breakdown of skin, unspecified whether varicose veins present Venous insufficiency of both lower extremities Lymphedema of both lower extremities Amy Bhatia APRN [facility] Vascular Lab 3v Procedures JESUS ALBERTO, legs, multiple levels [facility] [place] [address] [place] [address] Referral ID Status Reason Start Date Expiration Date Visits V isits Requested Authorized [id number] Closed Specialty 04/13/2021 04/13/2022 1 1 Service Requested Encounter Details Date Type Department Care Team Description 04/13/2021 Office Visit Wound Care at Amy Wright Venous stasis ulcer of right calf limited to breakdown of skin, unspecified whether varicose veins present (Primary Dx); [facility] DEISY Magana Venous insufficiency of both lower extre mities; [facility] Lymphedema of both lower ext remities [facility] Davey WOUND CENTER [place], [place] [facility] [place] [place] [address] [phone] Social History Tobacco Use Types Packs/Day Years [...] with any above symptoms Tuesday- Tuesday 8:00AM-4:30PM ([phone]). If weekends / holidays / evenings, please [...] (Vancomycin)then discharged to home on Cefazolin. VNA: [facility] initiated 04/01/21 Patient Active Problem List Diagnosis [...] drainage (thick yellow/green drainage) Malodor Contact the [facility] with any above symptoms Tuesday- Tuesday 8:00AM-4:30PM ([phone]). If weekends / holidays / evenings, please report to the Emergency Department. Cc: Alphonso Murphy MD [address] [place] [address] PCP: Alphonso Murphy MD documented in this [...] google or use a book such as Catglobe (available on Kiala) OR Azima (if you're using a package, it will have calorie and protein info on the back) - The other thing to write down would be grams of protein - 1500 is a good starting point for a ca jeffrey goal documented as of this encounter Results JESUS ALBERTO, legs, multiple levels (04/30/2021 12:42 PM EDT) Component Value Ref Test Analysis Performed At [facility] gist Range Method Time Signature VB Text Department: Vascular Surgery Lab VASCUBASE Report 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 [...] extremities documented in this encounter Care Teams Water And Fire Technician Relationship Specialty Start Date End Date Alphonso Murphy MD PCP - General Family Medicine 02/19/[address] [place] [address] documented as of this encounter
--- OUTSIDE RECORDS SUMMARY | 2022-04-21 10:51 | XMS_ITS | Encounter Summary ---
:1955 [place] [address] Care Team Providers Name Role Phone Alphonso Murphy MD Primary Care Provider [phone] Reason for Visit Auth/Cert Specialty Diagnoses / Procedures Referred By Contact Refer red To Contact Diagnoses Multinodular goiter MULTINODULAR GOITER Procedures PRO THYROIDECTOMY=SUBSTERNAL, TRANSCERV PRG EMG, LARYNX PRG US GUIDE INTRAOP THYROIDECTOMY, INCL. SUBSTERNAL, CERVICAL APPROACH (WRVU 17.62) FACIAL NERVE MONITORING, SETUP LARYNGEAL (WRVU 1.57) ULTRASONIC GUIDANCE, INTRAOP (WRVU 1.2) Referral ID Status Reason Start Date Expiration Date Visits Requ ested Visits Authorized [id number] 1 1 Encounter Details Date Type Department Care Team Description 03/03/2021 Anesthesia Event Main Operating Room Jose C Castillo MD [facility] [place] [address] [facility] Morales Griffith MD [facility] [place] [address] [phone] ([place] [address] Anesthesia Record Procedure Summary Procedure Name [...] by vein (top of hand), left; Kenneth Lindquist, Mary Toure RN uqnr-qqn-urdovr catheter system; 22 gauge; distraction, intradermal injection, [...] Bran Cha rlotte A, RN arm), right; dlsn-sko-rznswk catheter system; Anatomical Landmarks; 20 gauge; Barr, [...] Procedure Summary Date: 03/03/21 Room / Location: [facility] OR [facility] MAIN OR Anesthesia Start: 741 Anesthesia Stop: 1209 Procedures: THYROIDECTOMY, INCL. SUBSTERNAL, CERVICAL APPROACH (WRVU 17.62) (Bilateral Neck) FACIAL NERVE MONITORING, SETUP LARYNGEAL (WRVU 1.57) (N/A Neck) ULTRASONIC GUIDANCE, INTRAOP (WRVU 1.2) (N/A Neck) Diagnosis: (MULTINODULAR GOITER) Surgeons: Lisa Singh MD Responsible Provider: Jose C Forde MD Anesthesia Type: general ASA Status: 4 All Anesthesia Providers: Anesthesiologist: Jose C Forde MD Vocational Nurse: Nathan Barr DO Vitals Value Taken Time BP 131/74 03/03/21 1630 Temp 37.1 ??C (98.8 ??F) 03/03/21 1430 Pulse 0 03/03/21 1639 Resp 22 03/03/21 1637 SpO2 95 % 03/03/21 1636 Pain Level 0 03/03/21 1430 Vitals shown include unvalidated device data. Patient [facility]: PACU/[facility] Level of Consciousness: Awake and [...] REMOVE Please contact the Blood Bank at [phone] for questions. -- Iodine And Iodide Containing [...] extubate to BiPAP Nathan Barr DO Pager: [phone] Attending addendum (MD Forde) Patient seen and [...] (BMI 74) extensive former smoker presenting to [facility] ahead of thyroidectomy for multinodular goiter [...] [facility]pert[facility], [facility] [...] Griffith MD 12/03/2020 PCC Attending Addendum 02/25/21: Reclaimer, Juvenile Detention Officer clinic notes and TTE reviewed, no additional [...] google or use a book such as Lumicell (available on MX Logic) OR mydeco (if you're using a package, it will [...] EDT 3 g infusion 3 g, Intravenous, MORTGAGE OR LOAN UNDERWRITER TO O.R., 1 dose, On Tue03/03/21 at [...] Routine documented in this encounter Care Teams Popcorn Machine Operator Relationship Specialty Start Date End Date Alphonso Murphy MD PCP - General Family Medicine 02/19/[address] [place] [address] documented as of this encounter
--- OUTSIDE RECORDS SUMMARY | 2022-04-21 10:51 | XMS_ITS | Encounter Summary ---
:1955 Author Organization [facility] [place] [address] Care Team Providers Name Role Phone Alphonso Murphy MD Primary Care Provider [phone] Reason for Referral Physical Therapy (Routine) - Closed Specialty Diagnoses / Procedures Referred By Contact Refer red To Contact Physical Therapy Diagnoses S/P total thyroidectomy Lymphedema S/P total thyroidectomy Lisa Singh MD [facility] Pt Rehab Procedures Evaluate and Treat [facility] GENERAL SURGERY [place], [place] [address] [place] [phone] Phone: Fax: Referral ID Status Reason Start Date Expiration Date Visits V isits Requested Authorized [id number] Closed Evaluate and 03/19/2021 03/19/2022 12 12 Treat Encounter Details Date Type Department Care Team Description 03/19/2021 TH Visit General Surgery at Lisa Singh, S/P [facility] the [facility] ([facility] thyroidectomy [facility] [address] [place] GENERAL SURGERY [address] [place] [address] [phone] Social History Tobacco Use Types Packs/Day Years Used Date Former Smoker Cigarettes 3 40 Quit: 10/08/19 11 Smokeless Tobacco: Never Used Alcohol Use Standard Drinks/Week Comments No 0 (1 standard drink = 0.6 oz pure alcoho l) Sex Assigned at Date Recorded Not on file documented as of this encounter Patient Instructions Patient InstructionsBakyler, Lisa Irizarry MD - 03/19/2021 5:15 PM EDT [facility] POST-OPERATIVE FOLLOW UP The clinic contact number is [phone]. After your THYROID operation ?? It is [...] connected with us on our facebook page [facility] Securitydeaconess incarnate word health systemBlekkoHayes Here???s a link to our website to learn more about endocrine diseases, endocrine surgery, and research being done at [facility]. Visit [email or web address] incarnate word [email or web address] Another great website is [email or web address] documented in [...] well. 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 Radah Masterson is a very pleasant 65 y.o. [...] or use a book such as Calorie OjOs.com (available on Morphlabs) OR Lumenergi.Picolight (if you're using a package, it will have calorie and protein info on the back) - The other thing to write down would be grams of protein - 1500 is a good starting point for a ca jeffrey goal documented as of this encounter Results PTH (03/23/2021 10:13 AM EDT) P athologist Signature PTH 31 15 - 65 BING [place] pg/mL [facility] Specimen Anatomical Collection Method Collection Time Receive d Time (Source) Location / / Volume Laterality Blood 03/23/2021 10:13 03/23/2021 AM EDT 10:21 AM EDT Resulting Agency Comment Spec In Lab Lisa Singh MD CHEMISTRY ORDERABLES Performing Organization Address City/State/[place] [address] Calcium (03/23/2021 10:13 AM EDT) P athologist Signature Calcium 9.0 8.5 - 10.5 [facility] mg/dL [facility] Specimen Anatomical Collection Method Collection Time Receive d Time (Source) Location / / Volume Laterality Blood 03/23/2021 10:13 03/23/2021 AM EDT 10:21 AM EDT Resulting Agency Comment Spec In Lab Lisa Singh MD CHEMISTRY ORDERABLES Performing Organization Address City/State/[place] [address] documented in this encounter Visit Diagnoses Diagnosis S/P total thyroidectomy Other postprocedural status documented in this encounter Care Teams Client Delivery Specialist Relationship Specialty Start Date End Date Alphonso Murphy MD PCP - General Family Medicine 02/19/[address] [place] [address] documented as of this encounter
--- OUTSIDE RECORDS SUMMARY | 2022-04-21 10:51 | XMS_ITS | Encounter Summary ---
:1955 Author Organization [facility] [place] [address] Care Team Providers Name Role Phone Alphonso Cerna MD Primary Care Provider [phone] Reason for Visit Reason Comments Leg Pain Auth/Cert Specialty Diagnoses / Procedures Referred By Contact Refer red To Contact Diagnoses Cellulitis of right leg Cellulitis of leg, right Procedures ER IPI Referral ID Status Reason Start Date Expiration Date Visits Requ ested Visits Authorized [id number] 1 1 Encounter Details Date Type Department Care Team Description 04/05/2021 - Hospital Encounter 1 [facility] Blanquita Troncoso MD [facility] [place] [address] Cellulitis of right leg (Primary Dx); [facility] [place] [address] Cellulitis of leg, right; [facility] Sunny [place] [address] Venous stasis ulcer of right calf limite d to breakdown of skin, unspecified whether varicose veins present; [facility] Venous in sufficiency [place] [address] Social History Tobacco Use Types Packs/Day [...] Magana Young Patient Age: 65 y.o. Language: Wallisian Race: White Ethnicity: Not nor Admit date: [...] please contact your inpatient physician through the [facility] Pest Control Technician . Issues after hours and on weekends [...] and obesity (BMI 80) who presents to [facility] ER 04/05 with RLE ulcer pain and [...] of this test was determined by the [facility] Molecular Pathology Laboratory. It has been cleared [...] REMOVE Please contact the Blood Bank at [phone] for questions. ??? Iodine And Iodide Containing [...] 04/13/2021 2:30 PM Amy Germain APRN Wound [facility] 07/28/2021 10:30 AM Mike Robles MD [facility] PULM [facility] Your Inpatient Doctor: BLANQUITA BLEVINS HOWARD J HAUGHEY, DAVID M Your Primary Care Provider: Alphonso Cerna MD For questions regarding this document or issues relating to this hospitalization on the Medical Service, please contact your inpatient physician through the [facility] Pest Control Technician . Issues after hours and on weekends [...] PM Amy Germain APRN Wound Care at [facility] Arrive at: Product Support Analyst Area 4M [phone] 07/28/2021 10:30 AM Mike Robles MD Pulmonology at [facility] Arrive at: Product Support Analyst Area [phone] Discharge References/Attachments Cellulitis (Wallisian) documented in this encounter Discharge Instructions Discharge [...] 04/13/2021 2:30 PM Amy Germain APRN Wound [facility] 07/28/2021 10:30 AM Mike Robles MD [facility] PULM [facility] Your Inpatient Doctor: BLANQUITA BLEVINS HOWARD J HAUGHEY, DAVID M Your Primary Care Provider: Alphonso Cerna MD For questions regarding this document or issues relating to this hospitalization on the Medical Service, please contact your inpatient physician through the [facility] Pest Control Technician . Issues after hours and on weekends will be handled by the Hospitalist staff on-call. YOU ARE SCHEDULED FOR A FOLLOW UP APPOINTMENT WITH YOUR PRIMARY CARE PROVIDER, DR ALPHONSO CERNA ON 04/15/2021 AT 11:00AM AttachmentsThe following attachments cannot be sent through Care Everywhere. Cellulitis (Wallisian)documented in this encounter Medications at Time of [...] 06/2019 (FLONASE) 50 route daily as mcg/actuation [place], needed. 04/06 Patient Suspension states that she [...] home by wheelchair van transportation services with route cdl driver. All belongings sent with patient. RONEY removed, wound dressing clean dry and intac, skin free from pressure ulcers. Discharge instructions, medications, and follow-up appointments reviewed, education provided onwound care, paper prescriptions given to patient, all questions answered. . VNA paperwork faxed. Patient instructed to call with concerns. Pt escorted to [facility] by [facility]. Sunny Hebert MD - 04/08/2021 1:42 PM [...] spent >30 minutes (Day of Discharge Code 97838) involved in the final examination of the [...] up as able and when appropriate. Pager: [phone] Carolina Casey OT 04/08/2021 Occupational Therapy Rehabilitation Department Jessica Nick RN - 04/08/2021 12:21 PM EDT CARE MANAGEMENT FINAL DISCHARGE NOTE Chart reviewed, care reviewed with primary team and at interdisciplinary rounds. Patient is medically ready for discharge 04/08/21. Needs for Transition of Care Plan for discharge is: Home with resumption of oxygen through [facility] and VNA through [facility]. Agency Referrals: 1) [facility] Intake office: tel: [phone] [facility] [place] [phone] phone [phone] fax [facility] 2) [facility]. PHONE: [phone] FAX: [phone] Transportation: Computer Installer spoke with patient, Radha, who states she needs assist with setting up her Medicaid Ride for transport home today once cleared medically for discharge. computer forensic specialist, please schedule Medicaid transport ride (patient typically uses wheelchair van through [facility]) for today at 1300 from [facility], [address], [address] to her home at [address], [place], [place]. (Address confirmed with patient). Patient has her own motorized wheelchair on site for transport along with portable oxygen tank and her own walker. No one will be home to meet her. She has no problems accessing her home as it is handicapped access set up. Current DME: wheelchair - power, walker - rolling DME Needed at [place]: None indicated Patient is insured through: Primary Insurance: [facility] MANAGED MEDICARE Payor: [facility] MANAGED MEDICARE / Plan: [facility] MANAGED MEDICARE / Product Type: *No Product type* / Secondary Insurance: MEDICAID [place] Prescription Coverage: Yes, see above Preferred Pharmacy: See below [id number] - [place], [place] - [address] [facility] [address] [facility] [id number] This plan was formulated with input from patient, Radha Masterson, and team. All are in agreement with plan. Jessica Nick RN Case Meat Puller of Care Management Jessica Nick RN - 04/08/2021 12:15 PM EDT The patient, Radha Masterson, has been provided a list of Home Health Agencies/DME vendors which serve their preferred geographic area. A letter describing our affiliations was reviewed with them and they were educated about their right to choose where referrals are placed. CM provided patient with [facility] Star Quality Rating for Home care hand out. Patient requests resumption of oxygen referral to [facility] Intake office: tel: [phone] [facility] [place] [phone] phone [phone] fax [facility] . -Radha states that she has her home portable oxygen tank here with her for transport and oxygen available to her at home- Patient requests resumption of VNA services for wound care to [facility]. PHONE: [phone] FAX: [phone] Expected date of discharge: 04/08/21. Referral routed to the Casting Repairer for matching with agency/vendor and to provide [...] and obesity (BMI 80) who presents to [facility] ER 04/05 with RLE ulcer pain and [...] MIVF PIV Tubes/ Drains none DVT prophylaxis PT/OT/MANAGER CARDIAC CATH Consulted Wound care Following Anticipated Disposition Home with wound care follow up Team Pager (MD Coverage 07/03): [phone] Family Update Message left 04/07 PCP Alphonso [...] of two midnights or is on the [facility] inpatient only procedure list (status C) due to: severe purulent cellulitis requiring IV antibiotics Jessica Nick RN - 04/07/2021 2:30 PM EDT Computer Installer attempted to speak with Radha regarding discharge planning. Unavailable. CM to continue to monitor. IVETH Loredo Pager: [phone] Jessica Nick RN - 04/07/2021 11:28 AM EDT Computer Installer attempted to speak with Radha regarding discharge [...] knee,??and obesity (BMI 80) who presents to [facility] ER 04/05 with RLE ulcer pain and [...] 1.57) performed by Lisa Singh MD at [facility] MAIN OR ??? PRG US GUIDE INTRAOP N/A 03/03/2021 ULTRASONIC GUIDANCE, INTRAOP (WRVU 1.2) performed by Lisa Singh MD at [facility] MAIN OR ??? PRO THYROIDECTOMY=SUBSTERNAL, TRANSCERV Bilateral 03/03/2021 THYROIDECTOMY, INCL. SUBSTERNAL, CERVICAL APPROACH (WRVU 17.62) performed by Lisa Singh MD at [facility] MAIN OR Active Non-Hospital Problems Diagnosis ??? [...] in this evaluation. Time IN / OUT: 9790-9337 Total Minutes, Physical Therapy: 15 (evaluation, low complexity) Olga Wells Pager: [phone] Physical Therapy Inpatient Rehabilitation Department Carolina Casey, OT - 04/06/2021 1:08 PM EDT Occupational Therapy Evaluation Patient profile: aRdha Masterson is a 65 y.o. female admitted on 04/05/2021 with hx of pulmonary HTN, HFpEF, DAVID, bilateral LE edema, prosthetic right knee, and obesity (BMI 80) who presents to [facility] ER 04/05 with RLE ulcer pain and [...] 1.57) performed by Lisa Singh MD at [facility] MAIN OR ??? PRG US GUIDE INTRAOP N/A 03/03/2021 ULTRASONIC GUIDANCE, INTRAOP (WRVU 1.2) performed by Lisa Singh MD at [facility] MAIN OR ??? PRO THYROIDECTOMY=SUBSTERNAL, TRANSCERV Bilateral 03/03/2021 THYROIDECTOMY, INCL. SUBSTERNAL, CERVICAL APPROACH (WRVU 17.62) performed by Lisa Singh MD at [facility] MAIN OR Social History: Home Setup: pt [...] home: commode, power w/c, hospital bed, miniature development analyst Fall history: reports many falls in the [...] coordination o Dressing: pt declined; has miniature development analyst o Bathing: pt declined o Toileting: pt [...] of functional outcome. Carolina Casey OTR/L Pager [phone] Occupational Therapy Rehabilitation Department Jose Khalil, [facility] - 04/06/2021 1:24 AM EDT TelePharmacy Home Medication List Update for Medication Reconciliation 04/06/21 1:24 AM Radha Masterson 1955 Allergies Allergen Reactions ??? Red Blood Cells Other (See Comments) Antibodies-Difficult to Crossmatch DO NOT REMOVE Please contact the Blood Bank at [phone] for questions. ??? Iodine And Iodide Containing [...] contact the TelePharmacy Medication Reconciliation Pharmacist at [phone] for any questions. Jose Khalil RPH documented [...] right ID: 65 y.o. Female presents to [facility] with ulcer pain and discharge History of Present Illness: HPI 65 year old woman with hx of pulmonary HTN, HFpEF, DAVID, bilateral LE edema, prosthetic right knee, and obesity (BMI 80) who presents to [facility] ER 04/05 with RLE ulcer pain and [...] 1.57) performed by Lisa Singh MD at [facility] MAIN OR ??? PRG US GUIDE INTRAOP N/A 03/03/2021 ULTRASONIC GUIDANCE, INTRAOP (WRVU 1.2) performed by Lisa Singh MD at [facility] MAIN OR ??? PRO THYROIDECTOMY=SUBSTERNAL, TRANSCERV Bilateral 03/03/2021 THYROIDECTOMY, INCL. SUBSTERNAL, CERVICAL APPROACH (WRVU 17.62) performed by Lisa Singh MD at [facility] MAIN OR Prior To Admission Medications: (Not in a hospital admission) Allergies: Allergies Allergen Reactions ??? Red Blood Cells Other (See Comments) Antibodies-Difficult to Crossmatch DO NOT REMOVE Please contact the Blood Bank at [phone] for questions. ??? Iodine And Iodide Containing [...] on file Social History Narrative [facility]. Daughter lives with her for now. [...] surface of the RLE there is a [id number] chronic venous stasis wound with foul-smelling white-yellow [...] and obesity (BMI 80) who presents to [facility] ER 04/05 with RLE ulcer pain and [...] surface of the RLE there is a [id number] chronic venous stasis wound with foul-smelling white-yellow [...] CPG GOAL OUTCOME EVALUATION: Consult Note - Omar No RPH - 04/07/2021 11:25 AM EDT Clinical Pharmacist Note-Vanc Radha Masterson [id number] Radha Masterson is a 65 y.o. [...] have. Alternately, during off-hours you may call [phone] to contact a pharmacist. OMAR NO RPH [...] son would be surrogate decision maker per [place] surrogate decision making law. (Only good for 90 days) Any patient receiving care at [facility] must abide by [place] law. The hierarchy for surrogate decision making [...] (i) The agent with financial power of regulatory attorney or a conservator appointed in accordance with RSA 464-A. (j) The guardian of the patient???s estate. Current Coping/Education/Information Needs: unable to assess Current Functional Ability: unable to assess Functional Status Prior to Admission: unable to assess Home Environment: Others in the home: alone. Current Living Arrangements: home/apartment/condo. Accessibility Concerns: . Current DME: wheelchair - power, walker - rolling Home Address confirmed as: [address] [address] Social & Family Supports: All names listed below confirmed with patient as current and correct Extended Emergency Contact Information Primary Emergency Contact: Tonie Masterson Address: [address] Mobile Relation: Parent Secondary Emergency Contact: Galo Higgins Address: [address] Relation: Friend Current Care Provided by: [...] services at home. Health/Prescription Coverage: Primary Insurance: [facility] MANAGED MEDICARE Payor: [facility] i[employer] MEDICARE / Plan: [facility] MANAGED MEDICARE / Product Type: *No Product type* / Secondary Insurance: MEDICAID [place] Prescription Coverage: YES Preferred Pharmacy: [id number] [place], [place] - [address] [place] [address] AT [address] [facility] [address] [place] [phone] [place] Status: Patient is a : No Primary Care Provider: Alphonso Ceran MD [phone] Patient/Caregiver Goals of Treatment: I'm going home with VNA Potential Needs for Transition of Care: home health care, rehabilitation services Agency Referrals: [facility] (current patient) Transportation: unable to [...] Intake Nutrition Intake (%): 0% Current bed: [facility] Assessment: The patient is with lymphedema [...] Please contact YAS BAZZI RN on pager [phone] or the wound care team at [phone] or pager [phone] skin and wound care concerns or questions. [...] encounter: 203 kg (447 lb 8.5 oz). [place] Body Weight: 115# // 52kg Usual Body [...] while inpatient THANKS Gill Ocampo RD Pager #:[phone] Plan of Care - Sukhwinder Eckert RN - 04/06/2021 6:51 AM EDT OUTCOME EVALUATION NOTE: OUTCOME SUMMARY: 65 year old woman with hx of pulmonary HTN, HFpEF, DAVID, bilateral LE edema, prosthetic right knee, and obesity (BMI 80) who presents to [facility] ER 04/05 with RLE ulcer pain and [...] google or use a book such as [employer] (available on [employer]) OR [employer] (if you're using a package, it will [...] EDT) athologist Signature Neutrophils % 61.7 % [facility] Neutr Abs (ANC) 5.46 1.70 - [facility] 6.10 [facility] x10(3)/[facility] LABORATORY Lymphocytes % 24.9 % [facility] Lymphocytes Abs 2.2 0.9 - 3.2 [facility] x10(3)/[facility] LABORATORY Monocytes % 8.3 % [facility] Monocyte Abs 0.7 0.3 - 0.9 [facility] x10(3)/[facility] LABORATORY Eosinophils % 4.4 % [facility] Eosinophils Abs 0.4 0.0 - 0.4 [facility] x10(3)/[facility] LABORATORY Basophils % 0.5 % [facility] Basophils Abs 0.0 0.0 - 0.1 [facility] x10(3)/[facility] LABORATORY Immature Gran % 0.20 % [facility] Comment: Immature granulocytes(IG's)percentage an d absolute count will include metamyelocytes, myelocytes, and promyelo cytes. Blood smears from CBCs yielding IG's will be scanned manually for concor dance. If this scan disagrees with the automated IG or if promyelocytes are not ed, a manual differential will be performed. Surekha Gran Abs 0.02 0.00 - 0.04 x10(3)/[facility] Y [facility] Specimen Anatomical Collection Method Collection Time Receive d Time (Source) Location / / Volume Laterality Blood 04/08/2021 1:38 AM 1:56 EDT AM EDT Resulting Agency Comment Spec In Lab Elliott Goodson MD HEMATOLOGY ORDERABLES Performing Organization Address City/State/[place] [address] Hemogram (04/08/2021 1:38 AM EDT) P athologist Signature WBC 8.8 4.0 - 9.5 [facility] x10(3)/[facility] LABORATORY RBC 4.44 4.00 - [facility] 5.21 [facility] x10(6)/[facility] LABORATORY Hemoglobin 12.7 11.7 - [facility] 15.5 gm/dL [facility] Hematocrit 39.2 35.7 - [facility] % [facility] MCV 88.3 82.6 - [facility] 94.4 [facility] LABORATORY MCH 28.6 27.1 - [facility] 32.[address] [facility] MCHC 32.4 31.7 - [facility] 35.0 gm/dL [facility] Platelets 259 145 - 357 [facility] x10(3)/[facility] LABORATORY RDWSD 45.[address] 37[address] [facility] 46.0 [facility] LABORATORY RDWCV 14.1 11.5 - [facility] 14.1 % [facility] MPV 11.2 7.6 - 12.9 [facility] LABORATORY nRBC % Auto 0.0 % [facility] nRBC Abs Auto 0.000 0.000 - [facility] 0.000 [facility] x10(3)/[facility] LABORATORY Specimen Anatomical Collection Method Collection Time Receive d Time (Source) Location / / Volume Laterality Blood 04/08/2021 1:38 AM 1:56 EDT AM EDT Resulting Agency Comment Spec In Lab Elliott Goodson MD HEMATOLOGY ORDERABLES Performing Organization Address City/State/[place] [address] (ABNORMAL) Basic Metabolic Panel (non-fasting) (04/08/2021 1:38 AM EDT) P athologist Signature Glucose Lvl 113 65 - 199 [facility] mg/dL [facility] Comment: Diabetes: >=200 mg/dL plus symp toms BUN 16 8 - 18 mg/dL [facility] Creatinine 0.80 0.70 - 1.20 mg/dL [facility] Sodium 138 135 - 145 mmol/L [facility] Potassium 3.8 3.5 - 5.0 mmol/L [facility] Comment: Please note: ??Patients with WBC >100,00 0 may have falsely elevated Potassium levels. ??For accurate Potassium quantif ication in these patients send serum separator tube (gold top) for subsequent determinations. ??Contact the Clinical Chemistry Laboratory if there are any qu estions. Chloride 103 98 - 107 mmol/L [facility] CO2 26 22 - 31 mmol/L [facility] Anion Gap 9 5 - 15 mmol/L [facility] Calcium 7.9 (L) 8.5 - 10.5 mg/dL [facility] Estimated GFR 78 >=60 mL/min/1.73 m?? [facility] Comment: This patient? s [...] Organization Address City/State/[place] [address] Differential, Automated (04/07/2021 3:23 AM EDT) athologist Signature Neutrophils % 63.2 % [facility] Neutr Abs (ANC) 5.18 1.70 - [facility] 6.10 [facility] x10(3)/[facility] LABORATORY Lymphocytes % 22.7 % [facility] Lymphocytes Abs 1.9 0.9 - 3.2 [facility] x10(3)/[facility] LABORATORY Monocytes % 9.1 % [facility] Monocyte Abs 0.8 0.3 - 0.9 [facility] x10(3)/[facility] LABORATORY Eosinophils % 4.4 % [facility] Eosinophils Abs 0.4 0.0 - 0.4 [facility] x10(3)/[facility] LABORATORY Basophils % 0.4 % [facility] Basophils Abs 0.0 0.0 - 0.1 [facility] x10(3)/[facility] LABORATORY Immature Gran % 0.20 % [facility] Comment: Immature granulocytes(IG's)percentage an d absolute count will include metamyelocytes, myelocytes, and promyelo cytes. Blood smears from CBCs yielding IG's will be scanned manually for concor dance. If this scan disagrees with the automated IG or if promyelocytes are not ed, a manual differential will be performed. Surekha Gran Abs 0.02 0.00 - 0.04 x10(3)/[facility] Y [facility] Specimen Anatomical Collection Method Collection Time Receive d Time (Source) Location / / Volume Laterality Blood 04/07/2021 3:23 AM 1 3:36 EDT AM EDT Resulting Agency Comment Spec In Lab Elliott Goodson MD HEMATOLOGY ORDERABLES Performing Organization Address City/State/[place] [address] Hemogram (04/07/2021 3:23 AM EDT) P athologist Signature WBC 8.2 4.0 - 9.5 [facility] LABORATORY RBC 4.27 4.00 - [facility] 5.21 [facility] x10(6)/[facility] LABORATORY Hemoglobin 12.3 11.7 - [facility] 15.5 gm/dL [facility] Hematocrit 37.6 35.7 - [facility] 45.8 % [facility] MCV 88.1 82.6 - [facility] 94.4 [facility] LABORATORY MCH 28.8 27.1 - [facility] 32.[address] [facility] MCHC 32.7 31.7 - [facility] 35.0 gm/dL [facility] Platelets 228 145 - 357 [facility] x[facility](3[facility] LABORATORY RDWSD 45.3 37.0 - [facility] 46.0 [facility] LABORATORY RDWCV 14.1 11.5 - [facility] 14.1 % [facility] MPV 10.6 7.6 - 12.9 [facility] LABORATORY nRBC % Auto 0.0 % [facility] nRBC Abs Auto 0.000 0.000 - [facility] 0.000 [facility] x10(3)/[facility] LABORATORY Specimen Anatomical Collection Method Collection Time Receive d Time (Source) Location / / Volume Laterality Blood 04/07/2021 3:23 AM 1 3:36 EDT AM EDT Resulting Agency Comment Spec In Lab Elliott Goodson MD HEMATOLOGY ORDERABLES Performing Organization Address City/State/[place] [address] (ABNORMAL) Basic Metabolic Panel (non-fasting) (04/07/2021 3:23 AM EDT) P athologist Signature Glucose Lvl 97 65 - 199 [facility] mg/dL [facility] Comment: Diabetes: >=200 mg/dL plus symp toms BUN 16 8 - 18 mg/dL [facility] Creatinine 0.75 0.70 - 1.20 mg/dL [facility] Sodium 140 135 - 145 mmol/L [facility] Potassium 3.9 3.5 - 5.0 mmol/L [facility] [facility] Comment: Please note: ??Patients with WBC >100,00 0 may have falsely elevated Potassium levels. ??For accurate Potassium quantif ication in these patients send serum separator tube (gold top) for subsequent determinations. ??Contact the Clinical Chemistry Laboratory if there are any qu estions. Chloride 105 98 - 107 mmol/L [facility] CO2 28 22 - 31 mmol/L [facility] Anion Gap 7 5 - 15 mmol/L [facility] Calcium 8.2 (L) 8.5 - 10.5 mg/dL [facility] Estimated GFR 84 >=60 mL/min/1.73 m?? [facility] Comment: This patient? s [...] Organization Address City/State/[place] [address] (ABNORMAL) Vitamin D, 25-Hydroxy (04/06/2021 3:19 PM EDT) [facility] Method Time Signature 25-OH Vit D 13 (L) 21 - 100 [facility] Total ng/mL [facility] 25-OH Vit D Deficient [facility] Specimen Anatomical Collection Method Collection Time Receive d Time (Source) Location / / Volume Laterality Blood 04/06/2021 3:19 PM 3:25 EDT PM EDT Resulting Agency Comment Spec In Lab Hina Conley APRN CHEMISTRY ORDERABLES Performing Organization Address City/[facility]/[place] [address] MRSA PCR (04/06/2021 11:31 AM EDT) [facility] Method Time Signature MRSA Result Negative Negative [facility] MRSA Interp Negative for methicillin-resistant Staphylococcus aureus (MRSA) [facility] This test was performed using the GeneHelixis?? Dx System an d the Xpert MRSA MEMORIAL Assay. The MRSA target DNA was not detec claudia. The sample processing control and HOSPITAL probe check were valid. The performance of this test was determined by the [facility] Molecular Pathology Laboratory. It has been [...] - GENERAL ORDER MARY Performing Organization Address City/[facility]/[place] [address] Hemoglobin A1c (04/05/2021 11:20 PM EDT) athologist Signature Hemoglobin A1C 5.3 4.3 - 5.6 [facility] Comment: Reference Range: 4.3 - [...] 1, S67-74 Est Avg Gluc 106 mg/dL [facility] Comment: eAG equivalents for HbA1c percentages: HbA1c(%) ?eAG(mg/dL) 6.0 ?126 6.5 ?140 7.0 ?154 7.5 ?169 8.0 ?183 8.5 ?197 9.0 ?212 9.5 ?226 10.0 ? 240 Limitations: The eAG calculation has not been validated on women, individuals below 18 years old and above 70 years old, and individuals with hemoglobinopathies. Additional resources are available on [facility] website. Morales BERNSTEIN, Rey J, Jose L R, et al. ??Tr anslating the A1C assay into estimated average glucose values. ??Diabetes Care 2008:31(8):3277-5935. Specimen Anatomical Collection Method Collection Time Receive d Time (Source) Location / / Volume Laterality Blood Venous Draw / 04/05/2021 11:20 04/06/2021 4:59 Unknown PM EDT AM EDT Resulting Agency Comment Spec In Lab Elliott Goodson MD CHEMISTRY ORDERABLES Performing Organization Address City/State/[place] [address] Hepatic Function Panel (04/05/2021 11:20 PM EDT) athologist [facility] Total Protein 6.5 6.1 - 8.0 [facility] gm/dL [facility] Albumin 3.5 3.2 - 5.2 [facility] gm/dL [facility] AST 21 0 - 30 [facility] unit/L [facility] ALT 19 0 - 30 [facility] unit/L [facility] Alk Phos 75 35 - 105 [facility] unit/L [facility] Total 0.7 0.2 - 1.3 [facility] Bilirubin mg/dL [facility] Bili, Direct 0.1 0.0 - 0.3 [facility] mg/dL [facility] Specimen Anatomical Collection Method Collection Time Receive d Time (Source) Location / / Volume Laterality Blood Venous Draw / 04/05/2021 11:20 04/05/2021 Unknown PM EDT 11:27 PM EDT Resulting Agency Comment Spec In Lab Elliott Goodson MD CHEMISTRY ORDERABLES Performing Organization Address City/[facility]/[place] [address] (ABNORMAL) CRP, acute inflammation (04/05/2021 11:20 PM EDT) athologist [facility] CRP 5.8 (H) <=4.9 mg/L [facility] Specimen Anatomical Collection Method Collection Time Receive d Time (Source) Location / / Volume Laterality Blood Venous Draw / 04/05/2021 11:20 04/05/2021 Unknown PM EDT 11:27 PM EDT Resulting Agency Comment Spec In Lab Elliott Goodson MD CHEMISTRY ORDERABLES Performing Organization Address City/[facility]/[place] [address] (ABNORMAL) Sedimentation rate (04/05/2021 11:20 PM EDT) athologist [facility] Sed Rate 58 (H) 2 - 39 [facility] mm/hr [facility] Comment: Effective July 25, 2019 [...] Goodson MD HEMATOLOGY ORDERABLES Performing Organization Address City/[facility]/ZIP Code Phon e Number [address] Gold Tube HOLD (04/05/2021 11:20 PM EDT) athologist Signature Gold Hold Sample in [facility]. [facility] Specimen Anatomical Collection Method Collection Time Receive d Time (Source) Location / / Volume Laterality Blood Venous Draw / 04/05/2021 11:20 04/05/2021 Unknown PM EDT 11:24 PM EDT Karine Sears MD CHEMISTRY ORDERABLES Performing Organization Address City/[facility]/ZIP Code Phon e Number [address] Differential, Automated (04/05/2021 11:20 PM EDT) athologist Signature Neutrophils % 58.6 % [facility] Neutr Abs (ANC) 5.56 1.70 - [facility] 6.10 [facility] x10(3)/[facility] LABORATORY Lymphocytes % 26.6 % [facility] Lymphocytes Abs 2.5 0.9 - 3.2 [facility] x10(3)/[facility] LABORATORY Monocytes % 9.3 % [facility] Monocyte Abs 0.9 0.3 - 0.9 [facility] x10(3)/[facility]ORY Eosinophils % 4.6 % [facility] Eosinophils Abs 0.4 0.0 - 0.4 [facility] x10(3)/[facility]ORATORY Basophils % 0.5 % [facility] Basophils Abs 0.0 0.0 - 0.1 [facility] x10(3)/[facility]ORATORY Immature Gran % 0.40 % [facility] Comment: Immature granulocytes(IG's)percentage an d absolute count will include metamyelocytes, myelocytes, and promyelo cytes. Blood smears from CBCs yielding IG's will be scanned manually for concor dance. If this scan disagrees with the automated IG or if promyelocytes are not ed, a manual differential will be performed. Surekha Gran Abs 0.04 0.00 - 0.04 x10(3)/[facility] Specimen Anatomical Collection Method Collection Time Receive d Time (Source) Location / / Volume Laterality Blood 04/05/2021 11:20 04/05/2021 PM EDT 11:24 PM EDT Resulting Agency Comment Spec In Lab Karine Sears MD HEMATOLOGY ORDERABLES Performing Organization Address City/State/[place] [address] Hemogram (04/05/2021 11:20 PM EDT) P athologist Signature WBC 9.5 4.0 - 9.5 [facility] x10(3)/[facility] LABORATORY RBC 4.79 4.00 - [facility] 5.21 [facility] x10(6)/[facility] Hemoglobin 13.6 11.7 - [facility] 15.5 gm/dL [facility] Hematocrit 41.1 35.7 - [facility] 45.8 % [facility] MCV 85.8 82.6 - [facility] 94.4 [facility]ORATORY MCH 28.4 27.1 - [facility] 32.[address] [facility] MCHC 33.1 31.7 - [facility] 35.0 gm/dL [facility] Platelets 263 145 - 357 [facility] x10(3)/[facility] LABORATORY RDWSD 43.5 37.0 - [facility] 46.0 [facility] LABORATORY RDWCV 13.9 11.5 - [facility] 14.1 % [facility] MPV 10.5 7.6 - 12.9 [facility] LABORATORY nRBC % Auto 0.0 % [facility] nRBC Abs Auto 0.000 0.000 - [facility] 0.000 [facility] x10(3)/[facility] LABORATORY Specimen Anatomical Collection Method Collection Time Receive d Time (Source) Location / / Volume Laterality Blood 04/05/2021 11:20 04/05/2021 PM EDT 11:24 PM EDT Resulting Agency Comment Spec In Lab Karine Sears MD HEMATOLOGY ORDERABLES Performing Organization Address City/State/[place] [address] (ABNORMAL) Basic Metabolic Panel (non-fasting) (04/05/2021 11:20 PM EDT) P athologist Signature Glucose Lvl 98 65 - 199 [facility] mg/dL [facility] Comment: Diabetes: >=200 mg/dL plus symp toms BUN 13 8 - 18 mg/dL [facility] Creatinine 0.62 (L) 0.70 - 1.20 mg/dL [facility] Sodium 142 135 - 145 mmol/L [facility] Potassium 4.0 3.5 - 5.0 mmol/L [facility] Comment: Please note: ??Patients with WBC >100,00 0 may have falsely elevated Potassium levels. ??For accurate Potassium quantif ication in these patients send serum separator tube (gold top) for subsequent determinations. ??Contact the Clinical Chemistry Laboratory if there are any qu estions. Chloride 107 98 - 107 mmol/L [facility] CO2 26 22 - 31 mmol/L [facility] Anion Gap 9 5 - 15 mmol/L [facility] Calcium 8.2 (L) 8.5 - 10.5 mg/dL [facility] Estimated GFR 95 >=60 mL/min/1.73 m?? [facility] Comment: This patient? s [...] Organization Address City/State/[place] [address] L-Lactate2 Whole Blood (04/05/2021 11:19 PM EDT) P athologist Signature Lactate WB 1.5 0.5 - 2.2 [facility] mmol/L [facility] Specimen Anatomical Collection Method Collection Time Receive d Time (Source) Location / / Volume Laterality Blood 04/05/2021 11:19 04/05/2021 PM EDT 11:19 PM EDT Blanquita Blevins MD CHEMISTRY ORDERABLES Performing Organization Address City/State/ZIP [facility] [place] [address] documented in this encounter [...] Eckert RN) 1000 (Given - Provider: Lisa jaquez RN)1535 (Given - Provider: Lisa Holley RN)211 (Given - Provider: Patricia Gonzales RN) 0835 (Given - Provider: Loc Valdze RN)1418 (Given - Provider: Loc Valdez RN) [...] chloride 0.9% 100 mL Mini-Bag Plus (CANCELED) 0908 (New Bag - Provider: Bandar rachel RN)1602 (Stopped - Provider: Bandar Up RN) 4.5 [...] patch
documented in this encounter Care Teams Counter Caser Relationship Specialty Start Date End Date Alphonso Cerna MD PCP - General Family Medicine 02/19/[address] [place] [address] documented as of this encounter
--- OUTSIDE RECORDS SUMMARY | 2022-04-21 10:51 | XMS_ITS | Encounter Summary ---
:1955 Author Organization [facility] [place] [address] Care Team Providers Name Role Phone Alphonso Murphy MD Primary Care Provider [phone] Encounter Details Date Type Department Care Team Description 02/25/2021 Notes Only Same Day at [facility] [place] [place] [address] Social History Tobacco Use Types Packs/Day [...] google or use a book such as Andera (available on mobilePeople) OR Doctor Evidence (if you're using a package, it will have calorie and protein info on the back) - The other thing to write down would be grams of protein - 1500 is a good starting point for a ca jeffrey goal documented as of this encounter Visit Diagnoses Not on filedocumented in this encounter Care Teams Dragger Out Relationship Specialty Start Date End Date Alphonso Murphy MD PCP - General Family Medicine 02/19/[address] [place] [address] documented as of this encounter
--- OUTSIDE RECORDS SUMMARY | 2022-04-21 10:51 | XMS_ITS | Encounter Summary ---
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 You can reach me by phone ([phone]) or by sending a [employer] message. Mike Coughlin MD documented in this encounter Progress Notes Mike Robles MD - 01/20/2021 10:30 AM EDT Images from the original note were not included. [facility] Section of Pulmonary and Critical Care Medicine Outpatient Consultation Follow-up Date of Encounter: 01/20/2021 This was a [id number] office visit. Referring Provider: Alphonso Murphy MD [address] [place], [place] [address] [address] [place] [address] Brief Summary Radha Masterson is a 65 [...] tablet, Rfl: 3 ??? OXYGEN-AIR DELIVERY SYSTEMS [facility], 2 L., Disp: , Rfl: ??? aspirin [...] ??? fluticasone propionate (FLONASE) 50 mcg/actuation [place], Suspension, SHAKE LQ AND U 1 SPR [...] most recent TTE shows a stable PASP [id number] though I will defer to Dr. Edwards [...] if new issues arise. Mike Robles MD [facility] Machine Riggernews camera operator Pulmonary and Critical Care Medicine [place] [id number] [email or web address] documented in this encounter [...] google or use a book such as Catch Media (available on [employer]) OR Cylande (if you're using a package, it will [...] ic) documented in this encounter Care Teams Assignment Editor Relationship Specialty Start Date End Date Alphonso Murphy MD PCP - General Family Medicine 02/19/[address] [place] [address] documented as of this encounter
--- OUTSIDE RECORDS SUMMARY | 2022-04-21 10:51 | XMS_ITS | Encounter Summary ---
:1955 Author Organization [facility] [place] [address] Care Team Providers Name Role Phone Alphonso Murphy MD Primary Care Provider [phone] Encounter Details Date Type Department Care Team Description 04/30/2021 Office Visit Wound Care at [facility] Venou s stasis ulcer of right calf limited to breakdown of skin, unspecified whether varicose veins present; [facility] RN Venous in sufficiency [place] [phone] Social History Tobacco Use Types Packs/Day Years [...] Currently using tubigrips Home Health Agency: Yes [facility] Subjective: Patient denies fever, chills, [...] She will follow up here at the [facility] in one week or sooner if there [...] with any above symptoms Tuesday- Tuesday 8:00AM-4:30PM ([phone]). If weekends / holidays / evenings, please report to the Emergency Department. High Protein foods: try to eat 5-6 servings of these per day Beef, chicken, fish Beans, Lentils, peanut butter Indonesian and regular yogurt Cheese, eggs Boost, Ensure [...] or use a book such as Calorie finalsite (available on [employer]) OR [employer]ake [employer] (if you're using a package, it [...] mities documented in this encounter Care Teams Computer Systems Manager Relationship Specialty Start Date End Date Alphonso Murphy MD PCP - General Family Medicine 02/19/[address] [place] [address] documented as of this encounter
--- OUTSIDE RECORDS SUMMARY | 2022-04-21 10:51 | XMS_ITS | Encounter Summary ---
:1955 Author Organization [facility] [place] [address] Care Team Providers Name Role Phone Alphonso Murphy MD Primary Care Provider [phone] Reason for Referral Home Health Care (Routine) - Closed Specialty Diagnoses / Procedures Referred By Contact Refer red To Contact Unknown Specialty Diagnoses Venous stasis ulcer of right calf limited to breakdown of skin, unspecified whether varicose veins present Venous insufficiency of both lower extremities Lymphedema of both lower extremities [place] [address] Referral ID Status Reason Start Date Expiration Visits Visits Date Requested Authorized [id number] Closed Continuity of 03/30/2021 09/26/2021 99 99 Care Non PCP Reason for Visit Consultation (Urgent) - Closed Specialty Diagnoses / Procedures Referred By Contact Refer red To Contact Wound Care Diagnoses Venous stasis ulcer of calf, unspecified laterality, unspecified ulcer stage, unspecified whether varicose veins present Lisa Singh MD [facility] [place] [address] [place] [address] Referral ID Status Reason Start Date Expiration Date Visits V christine Requested Authorized [id number] Closed Consult, 03/23/2021 03/23/2022 1 1 Test & Treat Encounter Details Date Type Department Care Team Description 03/30/2021 Office Visit Wound Care at [facility] Venous stasis ulcer of right calf limited to breakdown of skin, unspecified whether varicose veins present (Primary Dx); [facility] DEISY Magana Venous insufficiency of both lower extre mities; [facility] MEDICAL Lymphedema of both lower ext remities [facility] WOUND [place], [place] [id number] [phone] Social History Tobacco Use Types Packs/Day Years [...] with any above symptoms Tuesday- Tuesday 8:00AM-4:30PM ([phone]). If weekends / holidays / evenings, please [...] to the patient's appointment. VNA: Will begin [facility] 04/01/21 Patient Active Problem List [...] ??? None Social History Narrative Lives in [place] [facility] [place] [facility]. Daughter lives with her for now. Has [...] with any above symptoms Tuesday- Tuesday 8:00AM-4:30PM ([phone]). If weekends / holidays / evenings, please report to the Emergency Department. Cc: Lisa Singh MD [facility] DR GENERAL SURGERY [place] [phone] PCP: Alphonso Murphy MD documented in this encounter Miscellaneous Notes Addendum Note - Amy Bhatia APRN - 03/30/2021 4:00 PM EDT Addended by: AMY BHATIA on: 03/30/2021 05:59 PM Modules accepted: Orders documented in this encounter Plan of Treatment Scheduled Referrals Name Type Priority Associated Diagnoses Order S chedule Referral to Home Outpatient Referral Routine Venous stasis [facility] er of Ordered: Health - Clinic right [...] or use a book such as Calorie Volve (available on Dizzywood) OR [employer]iegogo.Nutrabolt (if you're using a package, it will [...] extremities documented in this encounter Care Teams Net Developer Consultant Relationship Specialty Start Date End Date Alphonso Murphy MD PCP - General Family Medicine 02/19/[address] [place] [address] documented as of this encounter
--- OUTSIDE RECORDS SUMMARY | 2022-04-21 10:51 | XMS_ITS | Encounter Summary ---
:1955 Author Organization [facility] [place] [address] Care Team Providers Name Role Phone Alphonso Murphy MD Primary Care Provider [phone] Encounter Details Date Type Department Care Team Description 04/19/2021 Telephone General Surgery at [facility] Justice Barksdale MD [facility] [place] [address] GENERAL SURGERY [phone] [place], [place] [address] (Wo rk) Social History Tobacco [...] I called the patient's home health nurse ([facility]) at 12:05 PM. Radha Masterson is a 65 y.o. female who is s/p total thyroidectomy with Dr. Singh on 03/03/21. She was subsequently admitted to hospital medicine at [facility] from 04/05-04/08/21 for RLE cellulitis. Since discharge [...] google or use a book such as Tendril (available on WhoisEDI) OR EventKloud (if you're using a package, it will have calorie and protein info on the back) - The other thing to write down would be grams of protein - 1500 is a good starting point for a ca jeffrey goal documented as of this encounter Visit Diagnoses Not on filedocumented in this encounter Care Teams Flatwork Ironer Relationship Specialty Start Date End Date Alphonso Murphy MD PCP - General Family Medicine 02/19/[address] [place] [address] documented as of this encounter
--- OUTSIDE RECORDS SUMMARY | 2022-04-21 10:51 | XMS_ITS | Encounter Summary ---
:1955 Author Organization [facility] [place] [address] Care Team Providers Name Role Phone Alphonso Murphy MD Primary Care Provider [phone] Reason for Referral Consultation (Urgent) - Closed Specialty Diagnoses / Procedures Referred By Contact Refer red To Contact Dermatology Diagnoses Venous stasis ulcer of right calf limited to breakdown of skin, unspecified whether varicose veins present Amy Bhatia APRN [facility] Dermatology [facility] [address] [place] [address] [place] [address] Referral ID Status Reason Start Date Expiration Date Visits V isits Requested Authorized [id number] Closed Consult, 05/11/2021 05/11/2022 1 1 Test & Treat Encounter Details Date Type Department Care Team Description 05/11/2021 Office Visit Wound Care at [facility] Venous stasis ulcer of right calf limited to breakdown of skin, unspecified whether varicose veins present (Primary Dx); [facility] DEISY Magana Lymphedema of both lower extremities; [facility] Venous insufficiency of both lower extremities [facility] [address] W[facility] [place], [place] [id number] [phone] Social History Tobacco Use Types Packs/Day Years [...] with any above symptoms Tuesday- Tuesday 8:00AM-4:30PM ([phone]). If weekends / holidays / evenings, please report to the Emergency Department. ?? High Protein foods: try to eat 5-6 servings of these per day Beef, chicken, fish Beans, Lentils, peanut butter Lao and regular yogurt Cheese, eggs ?? Boost, Ensure shakes Protein powder in a smoothie of your choice ? documented in this encounter Progress Notes Aym Bhatia APRN - 05/11/2021 1:45 PM EDT Images from the original note were not included. [facility] Progress Note Reason [...] Cefazolin. 05/05/21 Seen in the ED [place] for recurring infection to RLE and completed another course of oral antibiotics. VNA: [facility] initiated 04/01/21 Patient Active Problem List [...] her last visit in the ED at [facility]. She wears a compression stockings to LLE [...] - Size G to RLE Assessment/ Plan: Radah Masterson is a 66 y.o. female here [...] RLE. She was seen in the ED [facility] 05/05/21 for elevated temperature and increased [...] with any above symptoms Tuesday- Tuesday 8:00AM-4:30PM ([phone]). If weekends / holidays / evenings, please report to the Emergency Department. ?? High Protein foods: try to eat 5-6 servings of these per day Beef, chicken, fish Beans, Lentils, peanut butter Lao and regular yogurt Cheese, eggs ?? Boost, [...] google or use a book such as Clipyoo (available on Plink Search) OR Relayware (if you're using a package, it will [...] mities documented in this encounter Care Teams Heel Shaver Relationship Specialty Start Date End Date Alphonso Murphy MD PCP - General Family Medicine 02/19/[address] [place] [address] documented as of this encounter
--- OUTSIDE RECORDS SUMMARY | 2022-04-21 10:51 | XMS_ITS | Encounter Summary ---
:1955 [place] [address] Care Team Providers Name Role Phone Alphonso Murphy MD Primary Care Provider [phone] Encounter Details Date Type Department Care Team Description 05/05/2021 Telephone [place] [address] Social History Tobacco Use Types Packs/Day [...] Note Patient Name: Radha Masterson : 1955 [id number] Caller: Radha Masterson Chief Complaint/reason for call Elevated temp, SOB, increase pain from leg wound and increase size Type of Wound Venous ulcer: Currently using tubigrips Location and laterality right lower leg Drainage serous Home Health Agency: [facility] Subjective: VNA nurse Linh left message on triage voicemail requesting we call patient. Phone call to patient..... Elevated temp and pain on right lower leg. Area of cellulitis has increased in size to [id number]. Last dose of Cefazolin was 04/30/21. Associated [...] - will go to closest ER in [facility] Report called to ER N Scheduled f/u appt in wound clinic N Recommended f/u appt with PCP N Other: Home care instructions/orders N Patients' Disposition- Patient lives alone and her friend that normally drives her to appointments is out of town. Patient refused to call 911 for transport to the hospital she insisted on taking the shuttle bus to [facility] ER. Plan of Care/Recommendations- Seek Medical Attention [...] evenings, please report to the Emergency Department. [phone] Comments: *Follow up phone call to Linh at [facility] at [phone]. Reviewed with Linh recommendation to call 911 [...] google or use a book such as [employer] (available on Idylis) OR Network[employer] (if you're using a package, it will have calorie and protein info on the back) - The other thing to write down would be grams of protein - 1500 is a good starting point for a ca jeffrey goal documented as of this encounter Visit Diagnoses Not on filedocumented in this encounter Care Teams Services Engineer Relationship Specialty Start Date End Date Alphonso Murphy MD PCP - General Family Medicine 02/19/[address] [place] [address] documented as of this encounter
--- OUTSIDE RECORDS SUMMARY | 2022-04-21 10:51 | XMS_ITS | Encounter Summary ---
:1955 Author Organization [facility] [place] [address] Care Team Providers Name Role Phone Alphonso Murphy MD Primary Care Provider [phone] Reason for Visit Auth/Cert Specialty Diagnoses / Procedures Referred By Contact Refer red To Contact Diagnoses Multinodular goiter MULTINODULAR GOITER Procedures PRO THYROIDECTOMY=SUBSTERNAL, TRANSCERV PRG EMG, LARYNX PRG US GUIDE INTRAOP THYROIDECTOMY, INCL. SUBSTERNAL, CERVICAL APPROACH (WRVU 17.62) FACIAL NERVE MONITORING, SETUP LARYNGEAL (WRVU 1.57) ULTRASONIC GUIDANCE, INTRAOP (WRVU 1.2) Referral ID Status Reason Start Date Expiration Date Visits Requ ested Visits Authorized [id number] 1 1 Encounter Details Date Type Department Care Team Description 03/03/2021 - Hospital Encounter 3 Lisa Tariq MD 03/04/2021 [facility] [address] GENERAL SURGERY [place] [phone] Social History Tobacco Use Types Packs/Day Years [...] REMOVE Please contact the Blood Bank at [phone] for questions. ??? Iodine And Iodide Containing Products rash ??? Oxycodone Rash ??? Morphine Rash Other reaction(s): PRURITIS Scheduled Appointments: Future Appointments Date Time Provider Department Center 03/19/2021 5:15 PM Lisa Singh MD [facility] SURG [facility] 07/28/2021 10:30 AM Mike Robles MD [facility] PULM [facility] Outpatient Services/Studies: No discharge procedures on file. [...] after thyroid surgery. Take NSAIDS and/or Tylenol [id number] for the first 3-5 days following surgeryto [...] will be mailed to you Please call [phone] to confirm the date and time of your appointment if you do not hear from usin the next 2 weeks Call Doctor for: Call if you have trouble talking or breathing (call [phone] if this is severe) Call if you [...] as noted above. Phone number for questions: [phone] before 5 PM on weekdays [phone] after 5 PM and on weekends/holidays. Ask for the general surgery resident economic specialist. General Instructions None Follow-up Recommendations for Providers: [...] after thyroid surgery. Take NSAIDS and/or Tylenol [id number] for the first 3-5 days following surgeryto [...] will be mailed to you Please call [phone] to confirm the date and time of [...] as noted above. Phone number for questions: [phone] before 5 PM on weekdays [phone] after 5 PM and on weekends/holidays. Ask for the general surgery resident economic specialist. documented in this encounter Medications at Time [...] 06/2019 (FLONASE) 50 route daily as mcg/actuation Capulin, needed. 04/06 Patient Suspension states that she [...] nodules with compressive symptoms who presents to [facility] for planned total thyroidectomy. S: Radha Masterson [...] Operative Note Patient Name: Radha Masterson : [id number] MR#: [id number] Case Date: 03/03/2021 Surgeon: Surgeon(s) and Role: [...] OPERATIVE NOTE PATIENT NAME: Radha Masterson : [id number] MR#: [id number] DATE OF SURGERY: 03/03/2021 SURGEON: Surgeon(s) and [...] google or use a book such as Flowdock (available on [employer]) OR Smashrun (if you're using a package, it will [...] Signature POC Glucose 111 65 - 199 [facility] mg/dL [facility] Comment: Supplemental ranges: <140 mg/dL before meals <180 mg/dL all other times of the day Specimen Anatomical Collection Method Collection Time Receive d Time (Source) Location / / Volume Laterality Blood 03/04/2021 8:26 AM 1 8:26 EDT AM EDT Lisa Singh MD POINT OF CARE TEST ORDERABLE S Performing Organization Address City/State/[place] [address] POCT Glucose (03/04/2021 3:46 AM EDT) P athologist Signature POC Glucose 126 65 - 199 [place] mg/dL [facility] Comment: Supplemental ranges: <140 mg/dL before meals <180 mg/dL all other times of the day Specimen Anatomical Collection Method Collection Time Receive d Time (Source) Location / / Volume Laterality Blood 03/04/2021 3:46 AM 1 3:46 EDT AM EDT Lisa Singh MD POINT OF CARE TEST ORDERABLE S Performing Organization Address City/State/[place] [address] (ABNORMAL) Calcium (03/04/2021 3:37 AM EDT) athologist Signature Calcium 7.6 (L) 8.5 - 10.5 [facility] [place] mg/dL [facility] Specimen Anatomical Collection Method Collection Time Receive d Time (Source) Location / / Volume Laterality Blood 03/04/2021 3:37 AM 1 4:04 EDT AM EDT Resulting Agency Comment Spec In Lab Lisa Singh MD CHEMISTRY ORDERABLES Performing Organization Address City/State/[place] [address] POCT Glucose (03/03/2021 11:59 PM EDT) athologist Signature POC Glucose 147 65 - 199 [place] mg/dL [facility] Comment: Supplemental ranges: <140 mg/dL before meals <180 mg/dL all other times of the day Specimen Anatomical Collection Method Collection Time Receive d Time (Source) Location / / Volume Laterality Blood 03/03/2021 11:59 03/03/2021 PM EDT 11:59 PM EDT Lisa Singh MD POINT OF CARE TEST ORDERABLE S Performing Organization Address City/State/[place] [address] POCT Glucose (03/03/2021 8:02 PM EDT) athologist Signature POC Glucose 137 65 - 199 [place] mg/dL [facility] Comment: Supplemental ranges: <140 mg/dL before meals <180 mg/dL all other times of the day Specimen Anatomical Collection Method Collection Time Receive d Time (Source) Location / / Volume Laterality Blood 03/03/2021 8:02 PM 8:02 EDT PM EDT Lisa Singh MD POINT OF CARE TEST ORDERABLE S Performing Organization Address City/[facility]/[place] [address] POCT Glucose (03/03/2021 3:59 PM EDT) athologist Signature POC Glucose 120 65 - 199 [place] mg/dL [facility] Comment: Supplemental ranges: <140 mg/dL before meals <180 mg/dL all other times of the day Specimen Anatomical Collection Method Collection Time Receive d Time (Source) Location / / Volume Laterality Blood 03/03/2021 3:59 PM 3:59 EDT PM EDT Lisa Singh MD POINT OF CARE TEST ORDERABLE S Performing Organization Address City/State/[place] [address] (ABNORMAL) PTH (03/03/2021 12:46 PM EDT) athologist Signature PTH 8 (L) 15 - 65 [place] pg/mL [facility] Specimen Anatomical Collection Method Collection Time Receive d Time (Source) Location / / Volume Laterality Blood 03/03/2021 12:46 03/03/2021 1:04 PM EDT PM EDT Resulting Agency Comment Spec In Lab Lisa Singh MD CHEMISTRY ORDERABLES Performing Organization Address City/State/ZIP Code Phon e Number [address] POCT Glucose (03/03/2021 12:37 PM EDT) P athologist Signature POC Glucose 116 65 - 199 [facility] mg/dL [facility] Comment: Supplemental ranges: <140 mg/dL before meals <180 mg/dL all other times of the day Specimen Anatomical Collection Method Collection Time Receive d Time (Source) Location / / Volume Laterality Blood 03/03/2021 12:37 03/03/2021 PM EDT 12:37 PM EDT Lisa Singh MD POINT OF CARE TEST ORDERABLE S Performing Organization Address City/State/[place] [address] Specimen to Pathology (03/03/2021 10:53 AM EDT) Specimen Anatomical Collection Method Collection Time Receive d Time (Source) Location / / Volume Laterality AP Specimen 03/03/2021 10:53 03/03/2021 AM EDT 10:53 AM EDT Narrative [facility] OR - 03/03/2021 10:53 AM EDT Specimen requisition ordered. ??Separate Pathology report to follow Lisa Singh MD PATHOLOGY/CYTOLOGY ORDERABLE S Performing Organization Address City/State/[place] [address] Specimen to Pathology (03/03/2021 10:00 AM EDT) Specimen Anatomical Collection Method Collection Time Receive d Time (Source) Location / / Volume Laterality AP Specimen 03/03/2021 10:00 03/03/2021 AM EDT 10:00 AM EDT Narrative [facility] ORY - 03/03/2021 10:00 AM EDT Specimen requisition ordered. ??Separate Pathology report to follow Lisa Singh MD PATHOLOGY/CYTOLOGY ORDERABLE S Performing Organization Address City/State/[place] [address] Surgical Pathology Report (03/03/2021 9:55 AM EDT) Component Value Ref Test Analysis Performed At [facility] Range Method Time Signature Surgical [id number] ? Location: [facility]; [facility]; [facility] Pathology [place] Report The signing pathologist has (i) examined [...] Scherer Verified: ??03/06/2021 11:03 ??Pathologist Performed at: ??-[facility] Dept. of Pathology, [place], [place] SPECIMEN(S) SUBMITTED A - Right thyroid [...] black. The isthmic margin is inked blue. Classification Case Manager sections in 8 cassettes as follows: ?A1-A8: ??Classification Case Manager sections submitted superior to inferior B - [...] black. The isthmic margin is inked blue. Classification Case Manager sections in 8 cassettes as follows: ?B1-B8: ??Classification Case Manager sections submitted superior to inferior. ??BAA SNS Specimen (Source) Anatomical Collection Method Collection Time Re ceived Time Location / / Volume Laterality 03/03/2021 9:55 AM EDT Lisa Singh MD PATHOLOGY/CYTOLOGY ORDERABLE S Performing Organization Address City/State/[place] [address] (ABNORMAL) BLOOD GAS 2 ARTERIAL (03/03/2021 8:34 AM EDT) Analysis Performed At Patho logist Time Signature pH Art 7.39 7.35 - [facility] 7.45 [facility] pCO2 Art 44 35 - 45 [facility] mmHg [facility] pO2 Art 88 85 - 104 [facility]ORY HCO3 Art 26.3 (H) 20.0 - [facility] 26.0 [facility] mmol/L [facility] BE Art 1.4 -3.0 - 3.0 [facility] mmol/L [facility] Hgb Blood Gas 13.4 11.7 - [facility] 15.5 gm/dL [facility] O2HB Art 95.4 94.0 - [facility] 97.0 % [facility] COHB Art 0.9 % [facility] Comment: Nonsmokers: 0.5-1.5% COHB Smokers: Variable, but usually less than 10% Toxic: 20-30% COHB Lethal: Greater than 60% COHB METHB Art 0.3 <=1.5 % [facility] Na Whole Blood 136 135 - 145 mmol/L [facility] K Whole Blood 4.1 3.5 - 5.0 mmol/L [facility] Comment: Please note: Patients with WBC >100,000 may have falsely elevated Potassium levels. Contact the Clinical Chemistry L aboratory if there are any questions. ICa Whole Blood 1.12 (L) 1.15 - 1.33 mmol/L [facility] Comment: Note: ??Total bilirubin higher than 20 m g/dL may lead to falsely low ionized calcium. CL Whole Blood 106 98 - 107 mmol/L [facility] Gluc Whole Bld 110 65 - 199 mg/dL [facility] Comment: Diabetes: >=200 mg/dL plus symp toms. Lactate WB 1.6 0.5 - 2.2 mmol/L [facility] Specimen Anatomical Collection Method Collection Time Receive d Time (Source) Location / / Volume Laterality Blood 03/03/2021 8:34 AM 8:34 EDT AM EDT Lisa Singh MD CHEMISTRY ORDERABLES Performing Organization Address City/State/[place] [address] POCT Glucose (03/03/2021 7:27 AM EDT) P athologist Signature POC Glucose 103 65 - 199 [facility] mg/dL [facility] Comment: Supplemental ranges: <140 mg/dL before meals <180 mg/dL all other times of the day Specimen Anatomical Collection Method Collection Time Receive d Time (Source) Location / / Volume Laterality Blood 03/03/2021 7:27 AM 7:27 EDT AM EDT Lisa Singh MD POINT OF CARE TEST ORDERABLE S Performing Organization Address City/State/[place] [address] documented in this encounter [...] to last dose)0513 (Given - Provider: Aime Caly RN)1200 (Due) 1,000 mg, Oral, EVERY 6 [...] Provider: Nathan Barr DO) 3 g, Intravenous, TOPOGRAPHICAL DRAFTER TO O.R., 1 dos e, On Tue03/03/21 [...] or Regular (not diet) soda OR If CABLE TELEVISION PROGRAM DIRECTOR O, give 15 gram glucose 40% oral [...] Unit) documented in this encounter Care Teams Roofer Applicator Relationship Specialty Start Date End Date Alphonso Murphy MD PCP - General Family Medicine 02/19/[address] [place] [address] [address] [facility] [address] [place] [address] documented as of this encounter
--- OUTSIDE RECORDS SUMMARY | 2022-04-21 10:51 | XMS_ITS | Encounter Summary ---
:1955 [place] [address] Care Team Providers Name Role Phone Alphonso Murphy MD Primary Care Provider [phone] Encounter Details Date Type Department Care Team Description 03/31/2021 Notes Only Wound Care at [facility] Laurie [place]ton, [place] [address] Social History Tobacco Use Types Packs/Day [...] EDT Referral for VNA services faxed to [facility]. documented in this encounter Plan [...] or use a book such as Calorie Conversion Logic (available on Segment) OR [employer] (if you're using a package, it will have calorie and protein info on the back) - The other thing to write down would be grams of protein - 1500 is a good starting point for a ca jeffrey goal documented as of this encounter Visit Diagnoses Not on filedocumented in this encounter Care Teams Estate Planning Counselor Relationship Specialty Start Date End Date Alphonso Murphy MD PCP - General Family Medicine 02/19/[address] [place] [address] documented as of this encounter
--- OUTSIDE RECORDS SUMMARY | 2022-04-21 10:51 | XMS_ITS | Encounter Summary ---
:1955 Author Organization [facility] [place] [address] Care Team Providers Name Role Phone Alphonso Murphy MD Primary Care Provider [phone] Reason for Visit Auth/Cert Specialty Diagnoses [...] Expiration Date Visits Requ ested Visits Authorized [id number] 1 1 Encounter Details Date Type Department Care Team Description 03/03/2021 Surgery Main Operating Room Lisa Singh MD THYROIDECTOMY, INCL. [facility] SUBSTERNAL, CERVICAL [facility] [address] ([address]) [place] [address] [place] [address] [phone] Social History Tobacco Use Types Packs/Day Years [...] REMOVE Please contact the Blood Bank at [phone] for questions. ??? Iodine And Iodide Containing Products rash ??? Oxycodone Rash ??? Morphine Rash Other reaction(s): PRURITIS Scheduled Appointments: Future Appointments Date Time Provider Department Center 03/19/2021 5:15 PM Lisa Singh MD [facility] SURG [facility] 07/28/2021 10:30 AM Mike Robles MD [facility] PULM [facility] Outpatient Services/Studies: No discharge procedures on file. [...] after thyroid surgery. Take NSAIDS and/or Tylenol nronwu-edh-bvyqg for the first 3-5 days following surgeryto [...] will be mailed to you Please call [phone] to confirm the date and time of [...] as noted above. Phone number for questions: [phone] before 5 PM on weekdays [phone] after 5 PM and on weekends/holidays. Ask for the general surgery resident hvac operations technician. General Instructions None Follow-up Recommendations for Providers: [...] after thyroid surgery. Take NSAIDS and/or Tylenol rjdbqy-ngy-fljee for the first 3-5 days following surgeryto [...] will be mailed to you Please call [phone] to confirm the date and time of your appointment if you do not hear from usin the next 2 weeks Call Doctor for: Call if you have trouble talking or breathing (call [phone] if this is severe) Call if you [...] as noted above. Phone number for questions: [phone] before 5 PM on weekdays [phone] after 5 PM and on weekends/holidays. Ask for the general surgery resident hvac operations technician. documented in this encounter Medications at Time [...] OXYGEN-AIR DELIVERY 2 L. 0 12/24/2014 [facility] [place] aspirin 325 mg Tablet Take 325 mg [...] 06/2019 (FLONASE) 50 route daily as mcg/actuation [place], needed. 04/06 Patient Suspension states that she [...] of bedfor dinner. Will continue to monitor. oRdy Hackett MD - 03/03/2021 4:26 PM EDT [...] applied, alarms set and audible. Neck incision FIRER TUNNEL KILN with steri-strips intact. Ice applied to site. [...] nodules with compressive symptoms who presents to [facility] for planned total thyroidectomy. S: Radha Masterson [...] Operative Note Patient Name: Radha Masterson : [id number] MR#: [id number] Case Date: 03/03/2021 Surgeon: Surgeon(s) and Role: [...] OPERATIVE NOTE PATIENT NAME: Radha Masterson : [id number] MR#: [id number] DATE OF SURGERY: 03/03/2021 SURGEON: Surgeon(s) and [...] google or use a book such as [employer] (available on Clinverse) OR [facility] (if you're using a package, it [...] Signature POC Glucose 111 65 - 199 [facility] mg/dL [facility] Comment: Supplemental ranges: <140 mg/dL before meals <180 mg/dL all other times of the day Specimen Anatomical Collection Method Collection Time Receive d Time (Source) Location / / Volume Laterality Blood 03/04/2021 8:26 AM 1 8:26 EDT AM EDT Lisa Singh MD POINT OF CARE TEST ORDERABLE S Performing Organization Address City/State/ZIP Code Phon e Number [address] POCT Glucose (03/04/2021 3:46 AM EDT) athologist Signature POC Glucose 126 65 - 199 [place] mg/dL [facility] Comment: Supplemental ranges: <140 mg/dL before meals <180 mg/dL all other times of the day Specimen Anatomical Collection Method Collection Time Receive d Time (Source) Location / / Volume Laterality Blood 03/04/2021 3:46 AM 1 3:46 EDT AM EDT Lisa Singh MD POINT OF CARE TEST ORDERABLE S Performing Organization Address City/State/[place] [address] (ABNORMAL) Calcium (03/04/2021 3:37 AM EDT) P athologist Signature Calcium 7.6 (L) 8.5 - 10.5 [facility] [place] mg/dL [facility] Specimen Anatomical Collection Method Collection Time Receive d Time (Source) Location / / Volume Laterality Blood 03/04/2021 3:37 AM 1 4:04 EDT AM EDT Resulting Agency Comment Spec In Lab Lisa Singh MD CHEMISTRY ORDERABLES Performing Organization Address City/State/ZIP Code Phon e Number [address] POCT Glucose (03/03/2021 11:59 PM EDT) P athologist Signature POC Glucose 147 65 - 199 [place] mg/dL [facility] Comment: Supplemental ranges: <140 mg/dL before meals <180 mg/dL all other times of the day Specimen Anatomical Collection Method Collection Time Receive d Time (Source) Location / / Volume Laterality Blood 03/03/2021 11:59 03/03/2021 PM EDT 11:59 PM EDT Lisa Singh MD POINT OF CARE TEST ORDERABLE S Performing Organization Address City/State/[place] [address] POCT Glucose (03/03/2021 8:02 PM EDT) athologist Signature POC Glucose 137 65 - 199 [place] mg/dL [facility] Comment: Supplemental ranges: <140 mg/dL before meals <180 mg/dL all other times of the day Specimen Anatomical Collection Method Collection Time Receive d Time (Source) Location / / Volume Laterality Blood 03/03/2021 8:02 PM 1 8:02 EDT PM EDT Lisa Singh MD POINT OF CARE TEST ORDERABLE S Performing Organization Address City/State/[place] [address] POCT Glucose (03/03/2021 3:59 PM EDT) athologist Signature POC Glucose 120 65 - 199 [place] mg/dL [facility] Comment: Supplemental ranges: <140 mg/dL before meals <180 mg/dL all other times of the day Specimen Anatomical Collection Method Collection Time Receive d Time (Source) Location / / Volume Laterality Blood 03/03/2021 3:59 PM 1 3:59 EDT PM EDT Lisa Singh MD POINT OF CARE TEST ORDERABLE S Performing Organization Address City/State/[place] [address] (ABNORMAL) PTH (03/03/2021 12:46 PM EDT) athologist Signature PTH 8 (L) 15 - 65 [place] pg/mL [facility] Specimen Anatomical Collection Method Collection Time Receive d Time (Source) Location / / Volume Laterality Blood 03/03/2021 12:46 03/03/2021 1:04 PM EDT PM EDT Resulting Agency Comment Spec In Lab Lisa Singh MD CHEMISTRY ORDERABLES Performing Organization Address City/State/[place] [address] POCT Glucose (03/03/2021 12:37 PM EDT) P athologist Signature POC Glucose 116 65 - 199 [facility] mg/dL [facility] Comment: Supplemental ranges: <140 mg/dL before meals <180 mg/dL all other times of the day Specimen Anatomical Collection Method Collection Time Receive d Time (Source) Location / / Volume Laterality Blood 03/03/2021 12:37 03/03/2021 PM EDT 12:37 PM EDT Lisa Singh MD POINT OF CARE TEST ORDERABLE S Performing Organization Address City/[facility]/[place] [address] Specimen to Pathology (03/03/2021 10:53 AM EDT) Specimen Anatomical Collection Method Collection Time Receive d Time (Source) Location / / Volume Laterality AP Specimen 03/03/2021 10:53 03/03/2021 AM EDT 10:53 AM EDT Narrative [place] - 03/03/2021 10:53 AM EDT Specimen requisition ordered. ??Separate Pathology report to follow Lisa Singh MD PATHOLOGY/CYTOLOGY ORDERABLE S Performing Organization Address City/[facility]/[place] [address] Specimen to Pathology (03/03/2021 10:00 AM EDT) Specimen Anatomical Collection Method Collection Time Receive d Time (Source) Location / / Volume Laterality AP Specimen 03/03/2021 10:00 03/03/2021 AM EDT 10:00 AM EDT Narrative [facility] OR - 03/03/2021 10:00 AM EDT Specimen requisition ordered. ??Separate Pathology report to follow Lisa Singh MD PATHOLOGY/CYTOLOGY ORDERABLE S Performing Organization Address City/[facility]/ZIP Code Phon e Number [place] [phone] [facility] [address] Surgical Pathology Report (03/03/2021 9:55 AM EDT) Component Value Ref Test Analysis Performed At [facility] Range Method Time Signature Surgical [id number] ? Location: [facility]; [facility]; A [facility] Pathology ROLAND Report The signing pathologist has (i) examined the relevant preparation(s) for the [facility] specimen(s) and (ii) rendered or confirmed the diagnosis(es) . [facility] . ?Surgic al Pathology DIAGNOSIS A) Right thyroid lobe, excision: - Multiple adenomatous nodules (up to 1.9 cm) B) Left thyroid lobe, excision: - Multiple adenomatous nodules (up to 3.2 cm) Electronically signed by: ?MD Nina, Dennis Scherer Verified: ??03/06/2021 11:03 ??Pathologist Performed at: ??-[facility] Dept. of Pathology, [place], [place] SPECIMEN(S) SUBMITTED A - Right thyroid [...] black. The isthmic margin is inked blue. Biomedical Engineering Director sections in 8 cassettes as follows: ?A1-A8: ??Biomedical Engineering Director sections submitted superior to inferior B [...] black. The isthmic margin is inked blue. Biomedical Engineering Director sections in 8 cassettes as follows: ?B1-B8: ??Biomedical Engineering Director sections submitted superior to inferior. ??BAA SNS Specimen (Source) Anatomical Collection Method Collection Time Re ceived Time Location / / Volume Laterality 03/03/2021 9:55 AM EDT Lisa Singh MD PATHOLOGY/CYTOLOGY ORDERABLE S Performing Organization Address City/State/[place] [address] (ABNORMAL) BLOOD GAS 2 ARTERIAL (03/03/2021 8:34 AM EDT) Analysis Performed At Patho logist Time Signature pH Art 7.39 7.35 - [facility] 7.45 [facility] pCO2 Art 44 35 - 45 [facility] mmHg [facility] pO2 Art 88 85 - 104 [facility]ORY HCO3 Art 26.3 (H) 20.0 - [facility] 26.0 [facility] mmol/L [facility] BE Art 1.4 -3.0 - 3.0 [facility] mmol/L [facility] Hgb Blood Gas 13.4 11.7 - [facility] 15.5 gm/dL [facility] O2HB Art 95.4 94.0 - [facility] 97.0 % [facility] COHB Art 0.9 % [facility] Comment: Nonsmokers: 0.5-1.5% COHB Smokers: Variable, but usually less than 10% Toxic: 20-30% COHB Lethal: Greater than 60% COHB METHB Art 0.3 <=1.5 % [facility] Na Whole Blood 136 135 - 145 mmol/L [facility] K Whole Blood 4.1 3.5 - 5.0 mmol/L [facility] Comment: Please note: Patients with WBC >100,000 may have falsely elevated Potassium levels. Contact the Clinical Chemistry L aboratory if there are any questions. ICa Whole Blood 1.12 (L) 1.15 - 1.33 mmol/L [facility] Comment: Note: ??Total bilirubin higher than 20 m g/dL may lead to falsely low ionized calcium. CL Whole Blood 106 98 - 107 mmol/L [facility] Gluc Whole Bld 110 65 - 199 mg/dL [facility] Comment: Diabetes: >=200 mg/dL plus symp toms. Lactate WB 1.6 0.5 - 2.2 mmol/L [facility] Specimen Anatomical Collection Method Collection Time Receive d Time (Source) Location / / Volume Laterality Blood 03/03/2021 8:34 AM 8:34 EDT AM EDT Lisa Singh MD CHEMISTRY ORDERABLES Performing Organization Address City/State/[place] [address] POCT Glucose (03/03/2021 7:27 AM EDT) P athologist Signature POC Glucose 103 65 - 199 [facility] mg/dL [facility] Comment: Supplemental ranges: <140 mg/dL before meals <180 mg/dL all other times of the day Specimen Anatomical Collection Method Collection Time Receive d Time (Source) Location / / Volume Laterality Blood 03/03/2021 7:27 AM 7:27 EDT AM EDT Lisa Singh MD POINT OF CARE TEST ORDERABLE S Performing Organization Address City/[facility]/[place] [address] documented in this encounter [...] Provider: Nathan Barr DO) 3 g, Intravenous, SUPERVISOR HANGING AND TRIMMING TO O.R., 1 dos e, On Tue03/03/21 [...] 40 (1 unit of insulin is expec claduia to drop the glucose 40 mg/dL) BG [...] or Regular (not diet) soda OR If SYSTEMS SUPPORT ENGINEER O, give 15 gram glucose 40% oral [...] Unit) documented in this encounter Care Teams Environmental Engineering Assistant Relationship Specialty Start Date End Date Alphonso Murphy MD PCP - General Family Medicine 02/19/[address] [place] [address] documented as of this encounter
--- OUTSIDE RECORDS SUMMARY | 2022-04-21 10:52 | XMS_ITS | Encounter Summary ---
:1955 Author Organization [facility] [place] [address] Care Team Providers Name Role Phone Alphonso Murphy MD Primary Care Provider [phone] Encounter Details Date Type Department Care Team Description 09/11/2019 Orders Only Weight and Wellness at Tisha Young, Vitamin D deficiency [facility] [address] [place] [address] [facility] [place], [place] [address] (Wo rk) Social History Tobacco [...] book such as Calorie Adalberto (available on CrowdFanatic) OR [employer]View (if you're using a package, it will have calorie and protein info on the back) - The other thing to write down would be grams of protein - 1500 is a good starting point for a ca jeffrey goal documented as of this encounter Visit Diagnoses Diagnosis Vitamin D deficiency Unspecified vitamin D deficiency documented in this encounter Care Teams Sleeping Car Conductor Relationship Specialty Start Date End Date Alphonso Murphy MD PCP - General Family Medicine 02/19/[address] [place] [address] [address] [place] [address] documented as of this encounter
--- OUTSIDE RECORDS SUMMARY | 2022-04-21 10:52 | XMS_ITS | Encounter Summary ---
:1955 Author Organization [facility] [place] [address] Care Team Providers Name Role Phone Alphonso Murphy MD Primary Care Provider [phone] Encounter Details Date Type Department Care Team Description 09/17/2020 Telephone Pulmonology at [facility] [place] [address] Social History Tobacco Use Types Packs/Day [...] google or use a book such as [employer] (available on La Miu) OR [employer] (if you're using a package, it will have calorie and protein info on the back) - The other thing to write down would be grams of protein - 1500 is a good starting point for a ca jeffrey goal documented as of this encounter Visit Diagnoses Not on filedocumented in this encounter Care Teams Knock Out Hand Relationship Specialty Start Date End Date Alphonso Murphy MD PCP - General Family Medicine 02/19/[address] [place] [address] documented as of this encounter
--- OUTSIDE RECORDS SUMMARY | 2022-04-21 10:52 | XMS_ITS | Encounter Summary ---
:1955 Author Organization [facility] [place] [address] Care Team Providers Name Role Phone Alphonso Murphy MD Primary Care Provider [phone] Encounter Details Date Type Department Care Team Description 08/13/2019 External [facility] [address] [place] [address] Social History Tobacco Use Types Packs/Day [...] Name Priority Date/Time Associated Diagnosis Comme nts [facility] EXTERNAL RESULT Routine 06/01/2019 Results for this PANEL procedure are i n the results section . [facility] EXTERNAL RESULT Routine 05/31/2019 Results for this PANEL procedure are i n the results section . [facility] EXTERNAL RESULT Routine 05/30/2019 Results for this PANEL procedure are i n the results section . documented in this encounter Results (ABNORMAL) [facility] External Results (06/01/2019) Analysis Performed At [facility] Signature Glucose 126 (ExtH) Fasting Comment: 70-100 BUN 25 Creatinine 0.67 Sodium 140 Potassium 4.2 Chloride 104 CO2 28 Anion Gap 8 Specimen (Source) Anatomical Location Collection Method / Collectio n Time Received Time / Laterality Volume 06/01/2019 Historical Provider POINT OF CARE TEST ORDERABLE S (ABNORMAL) [facility] External Results (05/31/2019) Analysis Performed At [facility] Signature Glucose 133 (ExtH) Fasting Comment: 70-100 BUN 26 Creatinine 0.63 Sodium 139 Potassium 4.5 Chloride 104 CO2 29 Anion Gap 6 Calcium 8.3 Specimen (Source) Anatomical Location Collection Method / Collectio n Time Received Time / Laterality Volume 05/31/2019 Historical Provider POINT OF CARE TEST ORDERABLE S (ABNORMAL) [facility] External Results (05/30/2019) Analysis Performed At [facility] Signature Glucose 114 (ExtH) Fasting Comment: 70-100 BUN 24 Creatinine 0.65 Sodium 140 Potassium 4.0 Chloride 105 CO2 29 Anion Gap 5 Calcium 8.3 Specimen (Source) Anatomical Location Collection Method / Collectio n Time Received Time / Laterality Volume 05/30/2019 Historical Provider POINT OF CARE TEST ORDERABLE S documented in this encounter Visit Diagnoses Not on filedocumented in this encounter Care Teams Web Development Consultant Relationship Specialty Start Date End Date Alphonso Murphy MD PCP - General Family Medicine 02/19/[address] [place] [address] documented as of this encounter
--- OUTSIDE RECORDS SUMMARY | 2022-04-21 10:52 | XMS_ITS | Encounter Summary ---
:1955 Author Organization [facility] [place] [address] Care Team Providers Name Role Phone Alphonso Murphy MD Primary Care Provider [phone] Reason for Visit Consultation (Urgent) - Closed Specialty Diagnoses / Procedures Referred By Contact Refer red To Contact Sleep Center Diagnoses Class 3 obesity with alveolar hypoventilation, serious comorbidity, and body mass index (BMI) greater than or equal to 70 in adult Supplemental oxygen dependent Mike Robles MD [facility] Sleep Medicine [facility] D R [address] [place] [address] [place] [address] Referral ID Status Reason Start Date Expiration Date Visits V isits Requested Authorized [id number] Closed Consult, 11/06/2020 11/06/2021 1 1 Test & Treat Encounter Details Date Type Department Care Team Description 12/17/2020 Office Visit [facility] DAVDI tr eated with BiPAP; [address], STONE POLISHER HAND Dependence on continuous supplemental ox ygen [address] [place] [address] [place] [address] [phone] (Wo rk) Social History Tobacco Use Types [...] Had a sleep study in 2012 at [facility]: AHI 24.9/hr, min SpO2 77%, at a [...] BIPAP download is not available today and [facility] does not have current data either. [...] yes Daytime Symptoms: Patient-reported last 4 scores: [place]: 8 [facility] 12/11/2020 [place] [facility] Incomplete Insomnia Severity Index 18 (Moderately [...] 0 ??? fluticasone propionate (FLONASE) 50 mcg/actuation [place], Suspension, SHAKE LQ AND U 1 SPR [...] google or use a book such as [employer] (available on Meetup) OR [employer] (if you're using a package, it will have calorie and protein info on the back) - The other thing to write down would be grams of protein - 1500 is a good starting point for a ca jeffrey goal documented as of this encounter Visit Diagnoses Diagnosis DAVID treated with BiPAP Dependence on continuous supplemental ox ygen documented in this encounter Care Teams Fighting Vehicle Infantryman Relationship Specialty Start Date End Date Alphonso Murphy MD PCP - General Family Medicine 02/19/[address] [place] [address] documented as of this encounter
--- OUTSIDE RECORDS SUMMARY | 2022-04-21 10:52 | XMS_ITS | Encounter Summary ---
:1955 Author Organization [facility] [place] [address] Care Team Providers Name Role Phone Alphonso Murphy MD Primary Care Provider Encounter Details Date Type Department Care Team Description 08/13/2019 Notes Only Weight and Wellness at Joe Jacinto RN [address] [address] Social History Tobacco Use Types Packs/Day [...] 08/13/2019 2:02 PM EST Received request from [facility] provider to update medication list based on report from PCP. Thank you, Andi Jacinto RN documented in this encounter Plan of Treatment Not on filedocumented as of this encounter Visit Diagnoses Not on filedocumented in this encounter Care Teams Communications Assistant Relationship Specialty Start Date End Date Alphonso Murphy MD PCP - General Family Medicine 02/19/[address] [place] [address] documented as of this encounter
--- OUTSIDE RECORDS SUMMARY | 2022-04-21 10:52 | XMS_ITS | Encounter Summary ---
:1955 Author Organization [facility] [place] [place] [address] Care Team Providers Name Role Phone Alphonso Murphy MD Primary Care Provider [phone] Reason for Referral Diagnostic Test (Routine) - Closed Specialty Diagnoses / Procedures Referred By Contact Refer red To Contact Radiology Diagnoses Multinodular goiter Lisa Singh MD [facility] Rad Ct Scan Procedures CT Neck Soft Tissue w Contrast (Generic) CT Neck Soft Tissue wwo Contrast [facility] [place] [address] [place] [address] Referral ID Status Reason Start Date Expiration Date Visits V isits Requested Authorized [id number] Closed Specialty 08/29/2020 02/26/2022 1 1 Service Requested Reason for Visit Diagnostic Test (Routine) - Closed Specialty Diagnoses / Procedures Referred By Contact Refer red To Contact Radiology Diagnoses Multinodular goiter Lisa Singh MD [facility] Rad Ct Scan Procedures CT Neck Soft Tissue w Contrast (Generic) CT Neck Soft Tissue wwo Contrast [facility] DR [facility] [place] [address] [place] [address] Referral ID Status Reason Start Date Expiration Date Visits V isits Requested Authorized [id number] Closed Specialty 08/29/2020 02/26/2022 1 1 Service Requested Encounter Details Date Type Department Care Team Description 09/09/[address] Scan at [facility] Lisa Singh, Multinodular goiter [facility] MD Dave[facility] [address] GENERAL SURGERY [phone] [place] [address] Social History Tobacco Use Types [...] 06/2019 (FLONASE) 50 route daily as mcg/actuation [place], needed. 04/06 Patient Suspension states that she [...] were not included. Infiltration/Extravasation Scale Radha Masterson [id number] Room/bed info not found Infiltration appearance: Infiltration [...] tech. 9:09 AM Name of RN [facility] and had VAS paged to come treat the extravasation. 9:09 AM Name of Pharmacist if consulted NA 9:09 AM Plastics Provider contacted: no 9:09 AM Name of Plastics MD (if consulted) (Mandatory photo for infiltrations/ extravasations scoring a stage 2 or greater, but recommended forstage 1. Include measuring tape and identifier in the photo) TIMBER SPRINKLER CARING FOR THIS PATIENT WILL CONTINUE TO [...] google or use a book such as Slack (available on Itugo) OR Canopy Labs (if you're using a package, it [...] 350.00 mg/ml. COMPARISON: Thyroid ultrasound from outside [facility] 07/17/2020 FINDINGS: The images are degraded [...] mg/ml. COMPARISON: [facility] 07[facility]17[facility] FINDINGS: The images are degraded [...] Routine documented in this encounter Care Teams Instructor Wastewater Treatment Plant Relationship Specialty Start Date End Date Alphonso Murphy MD PCP - General Family Medicine 02/19/[address] [place] [address] [address] [place] [address] documented as of this encounter
--- OUTSIDE RECORDS SUMMARY | 2022-04-21 10:52 | XMS_ITS | Encounter Summary ---
:1955 Author Organization [facility] [place] [address] Care Team Providers Name Role Phone Alphonso Murphy MD Primary Care Provider [phone] Encounter Details Date Type Department Care Team Description 11/13/2019 Telephone Weight and Wellness at [facility] Amanda Serrato [address] [place] [address] Social History Tobacco Use Types Packs/Day Years [...] follow up visits (Kiersten, end november, Camila, mid-December);[facility] telephone number provided. documented in this [...] or use a book such as Calorie GetSocial (available on MCube, Inc) OR 3DLT.com (if you're using a package, it will have calorie and protein info on the back) - The other thing to write down would be grams of protein - 1500 is a good starting point for a ca jeffrey goal documented as of this encounter Visit Diagnoses Not on filedocumented in this encounter Care Teams Assistant Merchandiser Relationship Specialty Start Date End Date Alphonso Murphy MD PCP - General Family Medicine 02/19/[address] [place] [address] documented as of this encounter
--- OUTSIDE RECORDS SUMMARY | 2022-04-21 10:52 | XMS_ITS | Encounter Summary ---
:1955 Author Organization [facility] Address [address] [place] [address] Care Team Providers Name Role Phone Alphonso [...] Morales Griffith MD D'Anna, Susan P, DEISY [facility] D [facility] ANESTHESIOLOGY DEPT [place] [address] [place] [address] Fax: Referral ID Status Reason Start Date Expiration Date Visits V isits Requested Authorized [id number] Closed Consult, 12/09/2020 12/09/2021 1 1 Test & Treat Encounter Details Date Type Department Care Team Description 12/09/2020 Orders Only Anesthesiology Morales Griffith, Pulmonary hypertension [facility] [place] [address] ANESTHESIOLOGY [phone] DEPT [place], [place] [address] Social History Tobacco Use Types [...] google or use a book such as Carsquare (available on ChartSpan [employer] Technologies) OR Affashion (if you're using a package, it will have calorie and protein info on the back) - The other thing to write down would be grams of protein - 1500 is a good starting point for a ca jeffrey goal documented as of this encounter Visit Diagnoses Diagnosis Pulmonary hypertension Other chronic pulmonary heart diseases documented in this encounter Care Teams Internal Grinder Relationship Specialty Start Date End Date Alphonso Murphy MD PCP - General Family Medicine 02/19/[address] [place] [address] documented as of this encounter
--- OUTSIDE RECORDS SUMMARY | 2022-04-21 10:52 | XMS_ITS | Encounter Summary ---
:1955 Author Organization [facility] Address One [address] [place] [address] Care Team Providers Name Role Phone Alphonso Murphy MD Primary Care Provider [phone] Encounter Details Date Type Department Care Team Description 09/21/2019 [facility] [address], RD due to excess calories [address] [place] [address] comorbidity and body [phone] mass index (BMI ) of 60.0 to [...] documented in this encounter Patient Instructions Patient InstructionsKiertsen Billingsley RD - 09/21/2019 11:00 AM EST [...] loss x 1 month Vitals 09/21/2019 Height (Brazilian) 64.016 Height (Metric) 162.6 cm Weight (Brazilian) 403 lbs 13 oz Weight (Metric) 183.162 [...] google or use a book such as Catchpoint Systems (available on AXSUN Technologies) OR IPWireless (if you're using a package, it will [...] google or use a book such as Catchpoint Systems (available on AXSUN Technologies) OR IPWireless (if you're using a package, it will [...] adult documented in this encounter Care Teams Professional Wrestler Relationship Specialty Start Date End Date Alphonso Murphy MD PCP - General Family Medicine 02/19/[address] [place] [address] documented as of this encounter
--- OUTSIDE RECORDS SUMMARY | 2022-04-21 10:52 | XMS_ITS | Encounter Summary ---
:1955 Author Organization [facility] [place] [address] Care Team Providers Name Role Phone Alphonso Murphy MD Primary Care Provider [phone] Reason for Referral Consultation (Urgent) - Duplicate Referral Specialty Diagnoses / Procedures Referred By Contact Refer red To Contact Cardiology Diagnoses Chronic heart failure with preserved ejection fraction Lisa Singh MD [facility] Cardiology 4a [facility] D R [facility] [place] [address] [place] [address] Referral ID Status Reason Start Expiration Visits Visits Date Date Requested Authorized [id number] Duplicate Consult, 12/16/2020 12/16/2021 1 1 Referral Test & Treat Encounter Details Date Type Department Care Team Description 12/16/2020 Orders Only General Surgery at Lisa Singh MD Chronic heart failure [facility] with preserved [facility] DR ejection fraction [facility] GENERAL SURGERY (Primary Dx) [place] [address] [place] [address] [phone] Social History Tobacco Use Types Packs/Day Years [...] google or use a book such as Kylin Network (available on Celsense) OR SMB Suite (if you're using a package, it will have calorie and protein info on the back) - The other thing to write down would be grams of protein - 1500 is a good starting point for a ca jeffrey goal documented as of this encounter Visit Diagnoses Diagnosis Chronic heart failure with preserved eje ction fraction - Primary documented in this encounter Care Teams Program Supervisor Relationship Specialty Start Date End Date Alphonso Murphy MD PCP - General Family Medicine 02/19/[address] [place] [address] [address] [place] [address] documented as of this encounter
--- OUTSIDE RECORDS SUMMARY | 2022-04-21 10:52 | XMS_ITS | Encounter Summary ---
:1955 Author Organization [facility] [address] Care Team Providers Name Role Phone Alphonso Murphy MD Primary Care Provider [phone] Encounter Details Date Type Department Care Team Description 09/17/2020 Orders Only Pulmonology at [facility] Nakul Banegas Goiter (Primary Dx) [facility] [place] [address] [address] [phone] PULMONARY MEDICI [place], [place] [address] (Wo rk) Social History Tobacco [...] book such as Calorie Adalberto (available on CloudFactory) OR GENWI (if you're using a package, it will [...] / FVC LLN 67 % COMPAS PFT VHV03-70 Actual 0.66 L/s COMPAS PFT Pre-BD SZF65-26 Pre-BD 33 % COMPAS PFT % of Predicted JJP35-55 1.98 L/s COMPAS PFT Predicted XMS55-95 Pre-BD -2.33 COMPAS PFT Z-Score DLCO Hb [...] unspecified documented in this encounter Care Teams Bulldozer Engineer Relationship Specialty Start Date End Date Alphonso Murphy MD PCP - General Family Medicine 02/19/[address] [place] [address] documented as of this encounter
--- OUTSIDE RECORDS SUMMARY | 2022-04-21 10:52 | XMS_ITS | Encounter Summary ---
:1955 Author Organization [facility] Address One [address] [place] [address] Care Team Providers Name Role Phone Alphonso Murphy MD Primary Care Provider [phone] Encounter Details Date Type Department Care Team Description 12/23/2020 Orders Only Cardiology at [facility] Esther Llanes Chronic heart failure [facility] OZ Nelson with pres jaylene [place] [address] Social History Tobacco Use Types Packs/Day Years [...] google or use a book such as WyzeTalk (available on Exaptive) OR SageQuest (if you're using a package, it will [...] 474 ms MUSE SYSTEM (Bezet) Calculated P [place] 70 degrees MUSE SYSTEM Calculated R [place] 68 degrees MUSE SYSTEM Calculated T [place] 35 degrees MUSE SYSTEM INTERPRETATION Normal sinus [...] fraction documented in this encounter Care Teams Axle Turner Relationship Specialty Start Date End Date Alphonso Murphy MD PCP - General Family Medicine 02/19/[address] [place] [address] documented as of this encounter
--- OUTSIDE RECORDS SUMMARY | 2022-04-21 10:52 | XMS_ITS | Encounter Summary ---
:1955 [place] [address] Care Team Providers Name Role Phone Alphonso Murphy MD Primary Care Provider [phone] Reason for Visit Reason Comments Medication Refill Encounter Details Date Type Department Care Team Description 12/01/2019 Refill Weight and Wellness at [facility] Tisha gu MD [facility] [address] [facility] [place] [address] [place] [address] [phone] (Wo rk) Social History Tobacco Use Types [...] google or use a book such as HowGood (available on Dovo) OR Inspiron Logistics Corporation (if you're using a package, it will have calorie and protein info on the back) - The other thing to write down would be grams of protein - 1500 is a good starting point for a ca jeffrey goal documented as of this encounter Visit Diagnoses Not on filedocumented in this encounter Care Teams Professor Of Graphic Design Relationship Specialty Start Date End Date Alphonso Murphy MD PCP - General Family Medicine 02/19/[address] [place] [address] [address] [place] [address] documented as of this encounter
--- OUTSIDE RECORDS SUMMARY | 2022-04-21 10:52 | XMS_ITS | Encounter Summary ---
:1955 Author Organization [facility] [place] [address] Care Team Providers Name Role Phone Alphonso Murphy MD Primary Care Provider [phone] Reason for Referral Diagnostic Test (Routine) - Closed Specialty Diagnoses / Procedures Referred By Contact Refer red To Contact Cardiology Diagnoses Pulmonary hypertension Tex Edwards MD [facility] Non-Inv Card Lab Procedures Echocardiogram Transthoracic([facility] or [facility]) [facility] DR [facility] [place] [address] [place] [address] Fax: Referral ID Status Reason Start Date Expiration Date Visits V isits Requested Authorized [id number] Closed Specialty 01/01/2021 01/01/2022 1 1 Service Requested Reason for Visit Consultation (Urgent) - Closed Specialty Diagnoses / Procedures Referred By Contact Refer red To Contact Cardiology Diagnoses Pulmonary hypertension please re-evaluate (last seen 02/2019) pHTN and HFpEF in patient scheduled for upcoming thyroidectomy 01/05/2021. Patient reports worsening O2 requirement, leg swelling, orthopnea. Last TTE 02/2019. Morales Griffith MD D'Anna, Susan P, DEISY [facility] D R [facility] ANESTHESIOLOGY DEPT [place] [address] [place] [address] Fax: Referral ID Status Reason Start Date Expiration Date Visits V isits Requested Authorized [id number] Closed Consult, 12/09/2020 12/09/2021 1 1 Test & Treat Encounter Details Date Type Department Care Team Description 01/01/2021 Office Visit Cardiology at [facility] Tex Edwards, Pulmonary hypertension; [facility] Chronic heart failure with preserved [place]je [place] [address] CARDIOLOGY DEPT. [phone] [place], [place] [address] Social History Tobacco Use Types [...] not included. CARDIOVASCULAR MEDICINE Pulmonary Hypertension Clinic [place] [id number] Subjective Identification Cyn Masterson is a 65 y.o. patient of Alphonso Murphy MD with the following medical problems 1. Obstructive sleep apnea-- initial evaluation in 2012 at [facility] with AHI of 25. on BiPAP. Titration [...] hypertension-- PASP 45-50 in February 2019 at [facility] Present Illness Seen today at request of surgery for preoperative evaluation prior to thyroid surgery. Last seen in PH clinic in 2018. I felt her PH was likely secondary to chronic hypoxic lung disease. Has recently seen Dr. Robles of [facility] and Sleep Medicine. She hopes to get [...] Disp: , Rfl: ??? OXYGEN-AIR DELIVERY SYSTEMS [facility], 2 L., Disp: , Rfl: ??? aspirin [...] 0 ??? fluticasone propionate (FLONASE) 50 mcg/actuation [place], Suspension, SHAKE LQ AND U 1 SPR [...] function 02/2019 LVEF 65% by echo at [facility] Evaluation for DAVID Uses CPAP Right heart [...] be much more convenient. Tex Edwards MD [facility] Addendum 20 January 2021 Echo done January 06 showed stable PASP of 52 with mild RV dilatation and normal RV function. I think itis reasonable to proceed with thyroid surgery. cc: ?? Alphonso Murphy MD [address] [place] [address] [facility] 1 / [facility] [id number] documented in this encounter Plan of Treatment [...] google or use a book such as Ohmx (available on China Wi Max) OR D-Wave Systems (if you're using a package, it [...] P athologist Signature EF 60 HEARTLAB SYSTEM Anatomical Region Laterality Modality Other Specimen (Source) Anatomical Location Collection Method / Collectio n Time Received Time / Laterality Volume 01/06/2021 Narrative 01/06/2021 2:11 PM EDT Procedure: ?Transthoracic Echocardiogram Patient: ?YOUNG CYN ?(Age): 1955(65y) Med Rec#: ? [id number] ?Sex: ?F ? Site Loc: ? [facility] ?Ht / Wt: ??160(cm)/190.5(k Pt. Loc: ?BSA: ?2.65 Study Date: ?? 01/06/2021 ?Pt. Type: Outpatient Tape: ? Referring: Tex Edwards ([id number]) Reading: Frandy Steiner ([id number]) Crusher Setter: Aaliyah Conley Diagnosis: *Other secondary pulmonary hypertension [...] Vmax ?1.15 ? m/sec ? MV deceleration tday393.87 ? m sec ? MV A-wave Vmax [...] ? Mid-Inferior ?Normal ? Mid-Inferoseptal ?Normal ? [place]-Septal ? Normal ? [place]-Anterior ? Normal ? [place]-Lateral ?Normal ? [place]-Inferior ? Normal ? [place]-Tip ?Normal ? This report has been electronically sign ed by: _ Frandy Steiner MD ? 01/06/2021 14:10:00 Images reviewed and interpretation veruab hospitald [facility] Cardiac Ultrasound Laboratory Procedure Note Frandy Steiner MD - 01/06/2021Forma tting of this note might be different from the original. Procedure: Transthoracic Echocardiogram Patient: JOHAN CASTANEDA(Age): 1955 (65y) Med Rec#: [id number] Sex: F Site Loc: [facility] Ht / Wt: 160(cm)/190.5(k Pt. Loc: BSA: 2.65 Study Date: 01/06/2021 Pt. Type: Outpati ent Tape: Referring: Tex Edwards ([id number]) Reading: Frandy Steiner ([id number]) Crusher Setter: Aaliyah Conley Diagnosis: *Other secondary pulmonary hypertension [...] MV E-wave Vmax 1.15 m/sec MV deceleration ftjz198.87 msec MV A-wave Vmax 1.17 m/sec MV [...] Normal Mid-Posterolateral Normal Mid-Inferior Normal Mid-Inferoseptal Normal [place]-Septal Normal [place]-Anterior Normal [place]-Lateral Normal [place]-Inferior Normal [place]-Tip Normal This report has been electronically sign ed by: _ Frandy Steiner MD 01/06/2021 14:10: 00 Images reviewed and interpretation verif ied [facility] Cardiac Ultrasound Laboratory Tex Edwards MD ECHO ORDERABLES EKG 12 Lead (01/01/2021 9:10 AM EDT) Component Value Ref Range Test Analysis Performed Pathologis t Method Time At Signature Ventricular rate 79 BPM MUSE SYSTEM Atrial Rate 79 BPM MUSE SYSTEM P-R Interval 176 ms MUSE SYSTEM QRS Duration 96 ms MUSE SYSTEM Q-T Interval 414 ms MUSE SYSTEM QTC Calculated 474 ms MUSE SYSTEM (Bezet) Calculated P [place] 70 degrees MUSE SYSTEM Calculated R [place] 68 degrees MUSE SYSTEM Calculated T [place] 35 degrees MUSE SYSTEM INTERPRETATION Normal sinus [...] diseases documented in this encounter Care Teams It Administrator Relationship Specialty Start Date End Date Alphonso Murhpy MD PCP - General Family Medicine 02/19/[address] [place] [address] documented as of this encounter
--- OUTSIDE RECORDS SUMMARY | 2022-04-21 10:52 | XMS_ITS | Encounter Summary ---
:1955 Author Organization [facility] [place] [address] Care Team Providers Name Role Phone Alphonso Murphy MD Primary Care Provider [phone] Encounter Details Date Type Department Care Team Description 12/16/2020 Telephone General Surgery at [facility] Lisa Singh MD [facility] [place] [address] GENERAL SURGERY [phone] [place], [place] [address] (Wo rk) Social History Tobacco [...] me that she hung up on the vice president of business development - she stated that when he put [...] or use a book such as Calorie Ping Identity Corporation (available on Socializr) OR HyperWeek.Zikk Software Ltd. (if you're using a package, it will have calorie and protein info on the back) - The other thing to write down would be grams of protein - 1500 is a good starting point for a ca jeffrey goal documented as of this encounter Visit Diagnoses Not on filedocumented in this encounter Care Teams Wood Router Hand Relationship Specialty Start Date End Date Alphonso Murphy MD PCP - General Family Medicine 02/19/[address] [place] [address] documented as of this encounter
--- OUTSIDE RECORDS SUMMARY | 2022-04-21 10:52 | XMS_ITS | Encounter Summary ---
:1955 Author Organization [facility] Address [place] [address]456 Care Team Providers Name Role Phone Alphonso Murphy MD Primary Care Provider [phone] Reason for Referral Diagnostic Test (Routine) - Closed Specialty Diagnoses / Procedures Referred By Contact Refer red To Contact Cardiology Diagnoses Pulmonary hypertension Tex Edwards MD [facility] Non-Inv Card Lab Procedures Echocardiogram Transthoracic([facility] or [facility]) [facility] [place] [address] [place] [address] Fax: Referral ID Status Reason Start Date Expiration Date Visits V isits Requested Authorized [id number] Closed Specialty 01/01/2021 01/01/2022 1 1 Service Requested Reason for Visit Diagnostic Test (Routine) - Closed Specialty Diagnoses / Procedures Referred By Contact Refer red To Contact Cardiology Diagnoses Pulmonary hypertension Tex Edwards MD [facility] Non-Inv Card Lab Procedures Echocardiogram Transthoracic([facility] or [facility]) [facility] [place] [address] [place] [address] Fax: Referral ID Status Reason Start Date Expiration Date Visits V isits Requested Authorized [id number] Closed Specialty 01/01/2021 01/01/2022 1 1 Service Requested Encounter Details Date Type Department Care Team Description 01/06/2021 Hospital Encounter Non-Invasive Tex Edwards, [facility] Cardiology Lab Margy GARCIA hypertension [facility] [place] [phone] Social History Tobacco Use Types Packs/Day Years [...] OXYGEN-AIR DELIVERY 2 L. 0 12/24/2014 [facility] aspirin 325 mg Tablet Take 325 mg [...] 06/2019 (FLONASE) 50 route daily as mcg/actuation [place], needed. 04/06 Patient Suspension states that she [...] google or use a book such as [employer] (available on DoApp) OR RecruitTalk (if you're using a package, it will [...] ?YOUNG CYN ?(Age): 1955(65y) Med Rec#: ? [id number] ?Sex: ?F ? Site Loc: ? [facility] ?Ht / Wt: ??160(cm)/190.5(k Pt. Loc: ?BSA: ?2.65 Study Date: ?? 01/06/2021 ?Pt. Type: Outpatient Tape: ? Referring: Tex Edwards ([id number]) Reading: Frandy Steiner ([id number]) Clam Picker: Aaliyah Conley Diagnosis: *Other secondary pulmonary hypertension [...] Vmax ?1.15 ? m/sec ? MV deceleration cdzl889.87 ? m sec ? MV A-wave Vmax [...] ? Mid-Inferior ?Normal ? Mid-Inferoseptal ?Normal ? [place]-Septal ? Normal ? [place]-Anterior ? Normal ? [place]-Lateral ?Normal ? [place]-Inferior ? Normal ? [place]-Tip ?Normal ? This report has been electronically sign ed by: _ Frandy Steiner MD ? 01/06/2021 14:10:00 Images reviewed and interpretation verif ied [facility] Cardiac Ultrasound Laboratory Procedure Note Frandy Steiner MD - 01/06/2021Forma tting of this note might be different from the original. Procedure: Transthoracic Echocardiogram Patient: JOHAN CASTANEDA(Age): 1955 (65y) Med Rec#: [id number] Sex: F Site Loc: [facility] Ht / Wt: 160(cm)/190.5(k Pt. Loc: BSA: 2.65 Study Date: 01/06/2021 Pt. Type: Outpati ent Tape: Referring: Tex Edwards ([id number]) Reading: Frandy Steiner ([id number]) Clam Picker: Aaliyah Conley Diagnosis: *Other secondary pulmonary hypertension [...] MV E-wave Vmax 1.15 m/sec MV deceleration [id number] msec MV A-wave Vmax 1.17 m/sec MV [...] Normal Mid-Posterolateral Normal Mid-Inferior Normal Mid-Inferoseptal Normal [place]-Septal Normal [place]-Anterior Normal [place]-Lateral Normal [place]-Inferior Normal [place]-Tip Normal This report has been electronically sign ed by: _ Frandy Steiner MD 01/06/2021 14:10: 00 Images reviewed and interpretation verif ied [facility] Cardiac Ultrasound Laboratory Tex Edwards MD ECHO ORDERABLES documented in this encounter Visit Diagnoses [...] Intravenous, ONCE PRN, 1 dose, Starting on 01/06/21 at 1310, Until Tu01/06/21 at 1240, for enhancement of sub-optimal echo images, Echo Lab (Intra-Procedure), Routine documented in this encounter Care Teams Svp Digital Ad Sales Relationship Specialty Start Date End Date Alphonso Murphy MD PCP - General Family Medicine 02/19/[address] [place] [address] (work) documented as of this encounter
--- OUTSIDE RECORDS SUMMARY | 2022-04-21 10:52 | XMS_ITS | Encounter Summary ---
:1955 Author Organization [facility] [place] [address] Care Team Providers Name Role Phone Alphonso Murphy MD Primary Care Provider [phone] Reason for Visit Reason Onset Date Comments Other 11/04/2020 Encounter Details Date Type Department Care Team Description 11/04/2020 Telephone Endocrinology at [facility] [place] [address] Social History Tobacco Use Types Packs/Day [...] google or use a book such as Touch[employer]. (available on vMobo) OR Stublisher (if you're using a package, it will have calorie and protein info on the back) - The other thing to write down would be grams of protein - 1500 is a good starting point for a ca jeffrey goal documented as of this encounter Visit Diagnoses Not on filedocumented in this encounter Care Teams Flagstone Layer Relationship Specialty Start Date End Date Alphonso Murphy MD PCP - General Family Medicine 02/19/[address] [place] [address] documented as of this encounter
--- OUTSIDE RECORDS SUMMARY | 2022-04-21 10:52 | XMS_ITS | Encounter Summary ---
:1955 Author Organization [facility] Address [facility] [place] [address] Care Team Providers Name Role Phone Alphonso Murphy MD Primary Care Provider [phone] Reason for Referral Consultation (Routine) - [...] to biopsy MD GARCIA [facility] Ron Thompson [facility] ENDOCRINOLOGY [place]PT [place] [address] [place] [address] Fax: Referral ID Status Reason Start Date Expiration Date Visits V isits Requested Authorized [id number] Closed Consult, 08/12/2020 08/12/2021 1 1 Test & Treat Reason for Visit Consultation (Urgent) - Closed Specialty Diagnoses / Procedures Referred By Contact Refer red To Contact Endocrinology Diagnoses Nontoxic goiter, unspecified Alphonso Murphy, [facility] Endocrinology 3b MD [address] [address] [address] [place], [place] [address] Referral ID Status Reason Start Date Expiration Date Visits V isits Requested Authorized [id number] Closed Consult, Test 08/06/2020 08/06/2021 6 6 & Treat [facility] PCP Updated and/or Approved Encounter Details Date Type Department Care Team Description 08/12/2020 Office Visit Endocrinology at [facility] Gloria Mcmullen, Thyroid nodule [facility] MD Az (Primary Dx) [place] [address] CENTER [phone] ENDOCRINOLOGY DEPT [place], [place] [address] Social History Tobacco Use Types [...] 0 ??? fluticasone propionate (FLONASE) 50 mcg/actuation [place], Suspension, SHAKE LQ AND U 1 SPR [...] Gunter. Az Mcmullen PGY4, Endocrinology Fellow Pager: [phone] Sunitha Gunter MD - 08/12/2020 9:00 AM EST I saw this patient with Dr. Mcmullen. I reviewed the hickman portions of the history and physical exam, and reviewed pertinent lab data. I answered all patient questions. I was involved in all medical decision making and agree with this plan. SUNITHA GUNTER MD Production Sanitizercontact officer Section of Endocrinology [facility] documented in this encounter Plan of Treatment [...] google or use a book such as DZZOM (available on Sencha) OR Ablative Solutions (if you're using a package, it will have calorie and protein info on the back) - The other thing to write down would be grams of protein - 1500 is a good starting point for a ca jeffrey goal documented as of this encounter Visit Diagnoses Diagnosis Thyroid nodule - Primary Nontoxic uninodular goiter documented in this encounter Care Teams Inspector Filters Relationship Specialty Start Date End Date Alphonso Murphy MD PCP - General Family Medicine 02/19/[address] [place] [address] documented as of this encounter
--- OUTSIDE RECORDS SUMMARY | 2022-04-21 10:52 | XMS_ITS | Encounter Summary ---
:1955 Author Organization [facility] Address [facility] [place] [address] Care Team Providers Name Role Phone Alphonso Murphy MD Primary Care Provider [phone] Reason for Referral Consultation (Urgent) - Closed Specialty Diagnoses / Procedures Referred By Contact Refer red To Contact Sleep Center Diagnoses Class 3 obesity with alveolar hypoventilation, serious comorbidity, and body mass index (BMI) greater than or equal to 70 in adult Supplemental oxygen dependent Mike Robles MD [facility] Sleep Medicine [facility] D R [address] [place] [address] [place] [address] Referral ID Status Reason Start Date Expiration Date Visits V isits Requested Authorized [id number] Closed Consult, 11/06/2020 11/06/2021 1 1 Test & Treat Reason for Visit Consultation (Routine) - Closed Specialty Diagnoses / Procedures Referred By Contact Refer tk To Contact Pulmonology Diagnoses Multinodular goiter Lisa Singh MD [facility] Pulmonology 5c [facility] D R [facility] [place] [address] [place] [address] Referral ID Status Reason Start Date Expiration Date Visits V isits Requested Authorized [id number] Closed Consult, 09/02/2020 09/02/2021 1 1 Test & Treat Encounter Details Date Type Department Care Team Description 11/06/2020 Office Visit Pulmonology at [facility] Travis, Class 3 obesity with alveola r hypoventilation, serious comorbidity, and body mass index (BMI) greater than or equal to 70 in adult; [facility] Mike Nelson MD Supplemental oxygen dependent; [facility] Former smoker; [place], [place] CENTER 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 ypoventilation disorder; [id number] PULMONARY Multinodular goiter; [phone] MEDICINE Dysphagia, unspecified type; [place], [place] Chronic respira tory failure with hypoxia and hypercapnia [address] Social History Tobacco Use Types Packs/Day Years [...] visit. You can reach me by phone ([phone]) or by sending a [employer]Cmed message. Mike Coughlin. MD [place] documented in this encounter Progress Notes Mike Robles MD - 11/06/2020 10:00 AM EDT Images from the original note were not included. [facility] Section of Pulmonary and Critical Care Medicine Outpatient Consultation - Initial Visit Date of Encounter: 11/06/2020 Referring Provider: Lisa Singh MD [facility] [place] [address] PCP: Alphonso Murphy MD Reason for Evaluation: Increased need for supplemental oxygen and pre-operative risk assessment This was a evmr-cy-tswe office visit. History of Present Illness: Radha [...] previously was seen in Pulmonary Clinic at [facility] more than 5 years ago. PFTs at [...] perhaps when she has had PNA. TTE [id number] was a limited study but showed mild [...] 0 ??? fluticasone propionate (FLONASE) 50 mcg/actuation [place], Suspension, SHAKE LQ AND U 1 SPR [...] my note above. Mike Robles MD [facility] Professor Of Art Historyclinical quality manager Pulmonary and Critical Care Medicine [place] [phone] [email or web address] documented in this encounter Plan of [...] Lifestyle On track Hattie Adams, (09/21/[address] 12:35 PM EST) Note: Formatting of [...] google or use a book such as OYO Sportstoys (available on Divergence) OR Sponsia (if you're using a package, it will [...] 11/06/2020 3:29 PM Resul ts for this ([facility]) EDT procedure are i n the results [...] athologist Signature pH Danie 7.35 7.32 - [facility] 7.42 [facility] pCO2 Danie 54 (H) 41 - 51 [facility] LABORATORY pO2 Danie 29 25 - 40 [facility] LABORATORY HCO3 Danie 29.1 mmol/L [facility] BE Danie 3.4 mmol/L [facility] Hgb Blood Gas 14.8 11.7 - [facility] 15.5 gm/dL [facility] Comment: Interpret with caution, 1 ml syringe may give rise to occasional discrepant Hgb results.11/06/20 15:37 O2HB Danie 59.4 % [facility] COHB Danie 1.3 % [facility] Comment: Nonsmokers: 0.5-1.5% COHB Smokers: Variable, but usually less than 10% Toxic: 20-30% COHB Lethal: Greater than 60% COHB METHB Danie 0.3 <=1.5 % [facility] Na Whole Blood 141 135 - 145 mmol/L [facility] K Whole Blood 3.9 3.5 - 5.0 mmol/L [facility] Comment: Please note: Patients with WBC >100,000 may have falsely elevated Potassium levels. Contact the Clinical Chemistry L aboratory if there are any questions. ICa Whole Blood 1.19 1.15 - 1.33 mmol/L [facility] Comment: Note: ??Total bilirubin higher than 20 m g/dL may lead to falsely low ionized calcium. CL Whole Blood 103 98 - 107 mmol/L [facility] Gluc Whole Bld 93 65 - 199 mg/dL [facility] Comment: Diabetes: >=200 mg/dL plus symp toms Lactate WB 1.4 0.5 - 2.2 mmol/L [facility] BGas Source Venous [facility] Specimen Anatomical Collection Method Collection Time Receive d Time (Source) Location / / Volume Laterality Blood specimen Venous Draw / 11/06/2020 3:29 PM 2020 3:33 (specimen) Unknown EDT PM EDT Resulting Agency Comment Spec In Lab Mike Robles MD CHEMISTRY ORDERABLES Performing Organization Address City/State/ZIP [place] [address] Differential, Automated (11/06/2020 12:20 PM EDT) P athologist Signature Neutrophils % 60.9 % [facility] Neutr Abs (ANC) 4.08 1.70 - [facility] 6.10 [facility] x10(3)/[facility] LABORATORY Lymphocytes % 25.6 % [facility] Lymphocytes Abs 1.7 0.9 - 3.2 [facility] x10(3)/[facility] LABORATORY Monocytes % 7.7 % [facility] Monocyte Abs 0.5 0.3 - 0.9 [facility] x10(3)/[facility] LABORATORY Eosinophils % 5.1 % [facility] Eosinophils Abs 0.3 0.0 - 0.4 [facility] x10(3)/[facility] LABORATORY Basophils % 0.4 % [facility] Basophils Abs 0.0 0.0 - 0.1 [facility] x10(3)/[facility] LABORATORY Immature Gran % 0.30 % [facility] Comment: Immature granulocytes(IG's)percentage an d absolute count will include metamyelocytes, myelocytes, and promyelo cytes. Blood smears from CBCs yielding IG's will be scanned manually for concor dance. If this scan disagrees with the automated IG or if promyelocytes are not ed, a manual differential will be performed. Surekha Gran Abs 0.02 0.00 - 0.04 x10(3)/[facility] Y [facility] LABORATORY Specimen Anatomical Collection Method Collection Time Receive d Time (Source) Location / / Volume Laterality Blood specimen 11/06/2020 12:20 1 (specimen) PM EDT 12:25 PM EDT Resulting Agency Comment Spec In Lab Mike Robles MD HEMATOLOGY ORDERABLES Performing Organization Address City/State/ZIP [place] [address] Hemogram (11/06/2020 12:20 PM EDT) athologist Signature WBC 6.7 4.0 - 9.5 [place] x10(3)/[facility] LABORATORY RBC 4.68 4.00 - [place] 5.21 [facility] x10(6)/[facility] LABORATORY Hemoglobin 13.8 11.7 - [place] 15.5 gm/dL [facility] Hematocrit 41.5 35.7 - [place] 45.8 % [facility] MCV 88.7 82.6 - [facility] JAY 94.4 [facility] LABORATORY MCH 29.5 27.1 - [employer] 32.0 pg [facility] MCHC 33.3 31.7 - [place] 35.0 gm/dL [facility] Platelets 238 145 - 357 [facility] x10(3)/[facility] LABORATORY RDWSD 44.4 37.0 - [place] 46.0 [facility] LABORATORY RDWCV 13.6 11.5 - [place] 14.1 % [facility] MPV 11.1 7.6 - 12.9 [place] [facility] LABORATORY nRBC % Auto 0.0 % [facility] nRBC Abs Auto 0.000 0.000 - [place] 0.000 [facility] x10(3)/[facility] LABORATORY Specimen Anatomical Collection Method Collection Time Receive d Time (Source) Location / / Volume Laterality Blood specimen 11/06/2020 12:20 1 (specimen) PM EDT 12:25 PM EDT Resulting Agency Comment Spec In Lab Mike Robles MD HEMATOLOGY ORDERABLES Performing Organization Address City/State/ZIP [place] [address] (ABNORMAL) Basic Metabolic Panel (non-fasting) (11/06/2020 12:20 PM EDT) athologist Signature Glucose Lvl 95 65 - 199 [facility] mg/dL [facility] Comment: Diabetes: >=200 mg/dL plus symp toms BUN 17 8 - 18 mg/dL [facility] Creatinine 0.56 (L) 0.70 - 1.20 mg/dL [facility] Sodium 140 135 - 145 mmol/L [facility] Potassium 4.1 3.5 - 5.0 mmol/L [facility] Comment: Please note: ??Patients with WBC >100,00 0 may have falsely elevated Potassium levels. ??For accurate Potassium quantif ication in these patients send serum separator tube (gold top) for subsequent determinations. ??Contact the Clinical Chemistry Laboratory if there are any qu estions. Chloride 105 98 - 107 mmol/L [facility] CO2 28 22 - 31 mmol/L [facility] Anion Gap 7 5 - 15 mmol/L [facility] Calcium 8.6 8.5 - 10.5 mg/dL [facility] Estimated GFR 99 >=60 mL/min/1.73 m?? [facility] Comment: This patient? s estimated [...] Organization Address City/State/ZIP [place] [address] documented in this encounter [...] hypercapnia documented in this encounter Care Teams Pressure Supervisor Relationship Specialty Start Date End Date Alphonso Murphy MD PCP - General Family Medicine 02/19/[address] [place] [address] documented as of this encounter
--- OUTSIDE RECORDS SUMMARY | 2022-04-21 10:52 | XMS_ITS | Encounter Summary ---
:1955 Author Organization [facility] [place] [address] Care Team Providers Name Role Phone Alphonso Murphy MD Primary Care Provider [phone] Encounter Details Date Type Department Care Team Description 06/24/2020 Orders Only Orthopaedics at [facility] Maddy, Carpal tunnel [facility] Osmin Velasquez Jr., [place] [address] [address] [phone] ORTHOPAEDIC SURGERY [place], [place] [address] Social History Tobacco Use Types [...] book such as Calorie Adalberto (available on Stampt) OR Grovo (if you're using a package, it will have calorie and protein info on the back) - The other thing to write down would be grams of protein - 1500 is a good starting point for a ca jeffrey goal documented as of this encounter Visit Diagnoses Diagnosis Carpal tunnel syndrome on right Carpal tunnel syndrome documented in this encounter Care Teams Workers Compensation Consultant Relationship Specialty Start Date End Date Alphonso Murphy MD PCP - General Family Medicine 02/19/[address] [place] [address] [address] [place] [address] documented as of this encounter
--- OUTSIDE RECORDS SUMMARY | 2022-04-21 10:52 | XMS_ITS | Encounter Summary ---
:1955 Author Organization [place] [address] Care Team Providers Name Role Phone Alphonso Murphy MD Primary Care Provider [phone] Reason for Referral Consultation (Routine) - Closed Specialty Diagnoses / Procedures Referred By Contact Refer red To Contact Pulmonology Diagnoses Multinodular goiter Lisa Singh MD [facility] [address] [place] [address] [place] [address] [place] [address] Referral ID Status Reason Start Date Expiration Date Visits V isits Requested Authorized [id number] Closed Consult, 09/02/2020 09/02/2021 1 1 Test & Treat iagnostic Test (Routine) - Closed Specialty Diagnoses / Procedures Referred By Contact Refer red To Contact Radiology Diagnoses Multinodular goiter Lisa Singh MD [facility] Rad Ct Scan Procedures CT Neck Soft Tissue w Contrast (Generic) CT Neck Soft Tissue wwo [place] [address] [place] [address] Referral ID Status Reason Start Date Expiration Date Visits V isits Requested Authorized [id number] Closed Specialty 08/29/2020 02/26/2022 1 1 Service [...] ~3.2 cm, difficult to biopsy MD GARCIA [facility] Ron Thompson [facility] ENDOCRINOLOGY DEPT [place] [address] Fax: Referral ID Status Reason Start Date Expiration Date Visits V isits Requested Authorized [id number] Closed Consult, 08/12/2020 08/12/2021 1 1 Test & Treat Encounter Details Date Type Department Care Team Description 08/29/2020 Office Visit General Surgery at Lisa Singh MD Multinodular goiter [facility] (Primary Dx) [facility] DR Davey GENERAL SURGERY [place], [place] [id number] [phone] Social History Tobacco Use Types Packs/Day Years [...] to pulmonology for your COPD here at [facility]. I will call you back after CT scan is done and after pulmonology has evaluated you. documented in this encounter Progress Notes Lisa Singh MD - 08/29/2020 9:00 AM EST Images from the original note were not included. Endocrine Surgery Consultation Dear Providers, Thank you for referring your patient to our [facility] Endocrine Surgery [facility]. Ms. Radha Masterson is [...] 0 ??? fluticasone propionate (FLONASE) 50 mcg/actuation [place], Suspension, SHAKE LQ AND U 1 SPR [...] would like her set up with a bindery machine feeder offbearer here for evaluation and risks stratify her [...] visit today. Sincerely, Lisa Singh MD, FACS Fire Control Officer, Section of General Surgery Division of Endocrine Surgery [facility] Data There is no height or weight [...] of compression: YES FNA: no FNA Classification: [place] n/a documented in this encounter Plan of [...] google or use a book such as makeena (available on NetTalon) OR CereSoft (if you're using a package, it will [...] ? Electronically signed by: Tomás shipman MD, [facility] ([phone]), at 09/09/2020 9:20 AM Narrative 09/09/2020 9:20 AM EST EXAMINATION: CT NECK SOFT TISSUE W CONTRAST (GENERIC) CLINICAL HISTORY: Neck mass, multiple (A ge > 15y) Multinodular goiter TECHNIQUE: CT neck performed after the intravenous administration of 60 ml of OMNIPAQUE 350.00 mg/ml. COMPARISON: Thyroid ultrasound from outside [facility] 07/17/2020 FINDINGS: The images are degraded [...] 350.00 mg/ml. COMPARISON: Thyroid ultrasound from outside [facility] 07/17/2020 FINDINGS: The images are degraded [...] below. Electronically signed by: Tomás shipman MD, [facility] ([phone]), at 09/09/2020 9:20 AM Lisa Singh MD IMG CT ORDERABLES documented in this encounter Visit Diagnoses Diagnosis Multinodular goiter - Primary Nontoxic multinodular goiter Multinodular goiter Nontoxic multinodular goiter documented in this encounter Care Teams Agricultural Equipment Salesperson Relationship Specialty Start Date End Date Alphonso Murphy MD PCP - General Family Medicine 02/19/[address] [place] [address] documented as of this encounter
--- OUTSIDE RECORDS SUMMARY | 2022-04-21 10:52 | XMS_ITS | Encounter Summary ---
:1955 Author Organization [facility] Address [address] [place] [address] Care Team Providers Name Role Phone Alphonso Murphy MD Primary Care Provider [phone] Encounter Details Date Type Department Care Team Description 09/10/2019 [facility] Obesity, unspecified classif ication, unspecified obesity type, unspecified whether serious comorbidity present; [address] Morbid obesity with BMI of 7 0 and over, adult; [place], [place] Other specified disorders of carbohydrate metabolism ; [address] Prediabetes [phone] Social History Tobacco Use Types Packs/Day Years Used Date Former Smoker Cigarettes 3 40 Quit: 10/08/19 11 Smokeless Tobacco: Never Used Alcohol Use Standard Drinks/Week Comments No 0 (1 standard drink = 0.6 oz pure alcoho l) Sex Assigned at Date Recorded Not on file documented as of this encounter Progress Notes Tisha Yuong MD - 09/10/2019 1:20 PM EST Hi, [...] google or use a book such as Digital Tech Frontier (available on Zidisha) OR SafeAwake (if you're using a package, it will [...] 450 232 - 1,245 [place] pg/mL [facility] Specimen Anatomical Collection Method Collection Time Receive d Time (Source) Location / / Volume Laterality Blood specimen 09/10/2019 1:29 PM 020 4:17 (specimen) EST PM EST Resulting Agency Comment Spec In Lab Tisha Young MD CHEMISTRY ORDERABLES Performing Organization Address City/[facility]/ZIP [place] [address] (ABNORMAL) Vitamin D, 25-Hydroxy (09/10/2019 1:29 PM EST) athologist Signature 25-OH Vit D 12 (L) 30 - 100 [place] Total ng/mL [facility] Comment: As of 2019, 25-hydroxyvitamin D kyler ting has moved from the [employer] to the Moy Hubert. No substantial change in me asured values is expected. Specimen Anatomical Collection Method Collection Time Receive d Time (Source) Location / / Volume Laterality Blood specimen 09/10/2019 1:29 PM 020 4:17 (specimen) EST PM EST Resulting Agency Comment Spec In Lab Tisha Young MD CHEMISTRY ORDERABLES Performing Organization Address City/[facility]/[place] [address] TSH (09/10/2019 1:29 PM EST) athologist Signature TSH 1.38 0.27 - 4.20 [place] mcIU/mL [facility] Specimen Anatomical Collection Method Collection Time Receive d Time (Source) Location / / Volume Laterality Blood specimen 09/10/2019 1:29 PM 020 4:18 (specimen) EST PM EST Resulting Agency Comment Spec In Lab Tisha Young MD CHEMISTRY ORDERABLES Performing Organization Address City/[facility]/Z[place] [address] Hemoglobin A1c (09/10/2019 1:29 PM EST) athologist Signature Hemoglobin A1C 5.6 4.3 - 5.6 [facility] Comment: Reference Range: 4.3 - [...] 1, S67-74 Est Avg Gluc 113 mg/dL [facility] Comment: eAG equivalents for HbA1c percentages: HbA1c(%) ?eAG(mg/dL) 6.0 ?126 6.5 ?140 7.0 ?154 7.5 ?169 8.0 ?183 8.5 ?197 9.0 ?212 9.5 ?226 10.0 ? 240 Limitations: The eAG calculation has not been validated on women, individuals below 18 years old and above 70 years old, and individuals with hemoglobinopathies. Additional resources are available on [facility] ADA website. Morales BERNSTEIN, Rey J, Jose L R, et al. ??Tr anslating the A1C assay into estimated average glucose values. ??Diabetes Care 2008:31(8):2307-5555. Specimen Anatomical Collection Method Collection Time Receive d Time (Source) Location / / Volume Laterality Blood specimen 09/10/2019 1:29 PM 020 4:12 (specimen) EST PM EST Resulting Agency Comment Spec In Lab Tisha Young MD CHEMISTRY ORDERABLES Performing Organization Address City/State/[place] [address] (ABNORMAL) CMP w/fasting Glucose (09/10/2019 1:29 PM EST) P athologist Signature Glucose 100 (H) 65 - 99 [facility] Fasting mg/dL [facility] Comment: ?Fasting* Glucose Interpretive C riteria [...] of Diabetes Mellitus, Position Statement from the [place] [employer]. ??Diabete s Care, Volume 33, Supplement 1, Aug 2009 BUN 17 8 - 18 mg/dL [facility] Creatinine 0.59 (L) 0.70 - 1.20 mg/dL [facility] Sodium 141 135 - 145 mmol/L [facility] Potassium 3.8 3.5 - 5.0 mmol/L [facility] Comment: Please note: ??Patients with WBC >100,00 0 may have falsely elevated Potassium levels. ??For accurate Potassium quantif ication in these patients send serum separator tube (gold top) for subsequent determinations. ??Contact the Clinical Chemistry Laboratory if there are any qu estions. Chloride 101 98 - 107 mmol/L [facility] CO2 28 22 - 31 mmol/L [facility] Anion Gap 12 5 - 15 mmol/L [facility] Calcium 9.7 8.5 - 10.5 mg/dL [facility] Total Protein 7.4 6.1 - 8.0 gm/dL [facility] Albumin 4.1 3.2 - 5.2 gm/dL [facility] AST 32 (H) 0 - 30 unit/L [facility] ALT 38 (H) 0 - 30 unit/L [facility] Alk Phos 74 35 - 105 unit/L [facility] Total Bilirubin 1.2 0.2 - 1.3 mg/dL [facility] Estimated GFR 98 >=60 mL/min/1.73 m?? [facility] Comment: The eGFR was calculated using the CKD-EP I equation. As with all creatinine based estimates of kidney function, eGFR values calculated with the CKD-EPI equation are not accurate in patients wi th acute kidney failure, extremes of body mass or the acutely ill. http://[employer]/[facility]SAnkf eGFR 113 >=60 mL/min/1.73 m?? [facility] Comment: The eGFR was calculated using the CKD-EP I equation. As with all creatinine based estimates of kidney function, eGFR values calculated with the CKD-EPI equation are not accurate in patients wi th acute kidney failure, extremes of body mass or the acutely ill. http://[employer]/[facility]kf Specimen Anatomical Collection Method Collection Time Receive d Time (Source) Location / / Volume Laterality Blood specimen 09/10/2019 1:29 PM 020 4:18 (specimen) EST PM EST Resulting Agency Comment Spec In Lab Tisha Young MD CHEMISTRY ORDERABLES Performing Organization Address City/State/[place] [address] Biorepository Request (09/10/2019 1:29 PM EST) [facility] gist Method Time Signature Biorepository Sample in [facility] LABORATORY Specimen Anatomical Collection Method Collection Time Receive d Time (Source) Location / / Volume Laterality Blood specimen 09/10/2019 1:29 PM 020 9:23 (specimen) EST AM EST Resulting Agency Comment Spec In Lab Tisha Young MD CHEMISTRY ORDERABLES Performing Organization Address City/State/ZIP Code Phon e Number [place] [id number] documented in this encounter Visit Diagnoses Diagnosis Obesity, unspecified classification, uns pecified obesity type, unspecified whether serious comorbidity present Morbid obesity with BMI of 70 and over, adult Morbid obesity Other specified disorders of carbohydrat e metabolism Prediabetes Other abnormal glucose documented in this encounter Care Teams Computed Tomography Technologist Relationship Specialty Start Date End Date Alphonso Murphy MD PCP - General Family Medicine 02/19/[address] [place] [address] documented as of this encounter
--- OUTSIDE RECORDS SUMMARY | 2022-04-21 10:52 | XMS_ITS | Encounter Summary ---
:1955 Author Organization [facility] Address [address] [place] [address] Care Team Providers Name Role Phone Alphonso Murphy MD Primary Care Provider [phone] Encounter Details Date Type Department Care Team Description 11/07/2019 Visit Weight and Wellness Tisha Young Class 3 severe (TeleHealth) at [facility] MD Abel obesity due to excess [address] [facility] with serious [place], [place] [address] comorbidity and body [address] [facility] mass index (BMI) of [phone] PRIMARY CARE 60.0 to 69.9 in adult [place], [place] [address] Social History Tobacco Use Types [...] Young MD - 11/07/2019 11:00 AM EDT [facility] Living [facility] Visit PHONE VISIT DUE TO COVID-19 SITUATION Patient Name: Radha Masterson Date of : 1955 Age: 64 y.o. Alphonso Murphy MD Thank you for referring Radha Masterson to the [facility] Living Clinic for consultation regardingobesity. [...] This is a 3 month from first [facility] visit folllow up for this 64 y.o. patient who I saw in Weight and Wellness clinic for the first time on 08/06/2019. Medical problems include: Pulmonary HTN, DAVID, chronic HF with preserved EF, anxiety, depression, ??pre- diabetes. ??She wears oxygen 24 hours per day. BMI was 73.8, weight 430 lbs at first visit. Metformin had been recently started. Saw tunnel kiln operator Dimple on 08/20 who wrote: Radha is [...] this). Has had no soda since first [facility] visit. Saw PCP who increased metformin [...] working on the bariatric paperwork. I reviewed tunnel kiln operator note from 09/21 and goals and reviewed [...] 0 ??? fluticasone propionate (FLONASE) 50 mcg/actuation [place], Suspension SHAKE LQ AND U 1 SPR [...] Would like to do phone visit with tunnel kiln operator Kiersten in about a month. Discussed that [...] google or use a book such as GenCell Biosystems (available on AltSchool) OR Scatter Lab (if you're using a package, it will [...] adult documented in this encounter Care Teams Dressmaker Helper Relationship Specialty Start Date End Date Alphonso Murphy MD PCP - General Family Medicine 02/19/[address] [place] [address] documented as of this encounter
--- OUTSIDE RECORDS SUMMARY | 2022-04-21 10:52 | XMS_ITS | Encounter Summary ---
:1955 Author Organization [facility] [place] [address] Care Team Providers Name Role Phone Alphonso Murphy MD Primary Care Provider [phone] Encounter Details Date Type Department Care Team Description 08/13/2019 Orders Only Weight and Wellness at [place], [facility] [address] [place] [address] Social History Tobacco Use Types Packs/Day [...] on filedocumented in this encounter Care Teams French Folding Machine Operator Relationship Specialty Start Date End Date Alphonso Murphy MD PCP - General Family Medicine 02/19/[address] [place] [address] documented as of this encounter
--- OUTSIDE RECORDS SUMMARY | 2022-04-21 10:52 | XMS_ITS | Encounter Summary ---
:1955 Author Organization [facility] [place] [address] Care Team Providers Name Role Phone Alphonso Murphy MD Primary Care Provider [phone] Encounter Details Date Type Department Care Team Description 12/09/2020 TH Visit (TeleHealth) [place] [address] Social History Tobacco Use Types Packs/Day [...] google or use a book such as Lawn Love (available on OhmData) OR mPowa (if you're using a package, it will have calorie and protein info on the back) - The other thing to write down would be grams of protein - 1500 is a good starting point for a ca jeffrey goal documented as of this encounter Visit Diagnoses Not on filedocumented in this encounter Care Teams Senior Power Scheduler Relationship Specialty Start Date End Date Alphonso Murphy MD PCP - General Family Medicine 02/19/16 [address] [place] [address] documented as of this encounter
--- OUTSIDE RECORDS SUMMARY | 2022-04-21 10:52 | XMS_ITS | Encounter Summary ---
:1955 Author Organization [facility] Address [address] [place] [address] Care Team Providers Name Role Phone Alphonso Murphy MD Primary Care Provider [phone] Encounter Details Date Type Department Care Team Description 09/02/2020 Orders Only Pulmonology at [facility] Travis Giraldo MD Pulmonary [facility] [place] [address] Pulmonary Medicine [phone] [place], [place] [address] Social History Tobacco Use Types [...] or use a book such as Calorie Loaded Pocket (available on Rentalutions) OR The Chapar (if you're using a package, it will have calorie and protein info on the back) - The other thing to write down would be grams of protein - 1500 is a good starting point for a ca jeffrey goal documented as of this encounter Visit Diagnoses Diagnosis Pulmonary hypertension - Primary Other chronic pulmonary heart diseases documented in this encounter Care Teams Denture Contour Wire Specialist Relationship Specialty Start Date End Date Alphonso Murphy MD PCP - General Family Medicine 02/19/[address] [place] [address] documented as of this encounter
--- OUTSIDE RECORDS SUMMARY | 2022-04-21 10:52 | XMS_ITS | Encounter Summary ---
:1955 Author Organization [facility] Address [address] [place] [address] Care Team Providers Name Role Phone Alphonso Murphy MD Primary Care Provider [phone] Reason for Visit Reason Onset Date Comments Appointment 11/05/2020 Other 11/05/2020 Increased oxygen dem and Encounter Details Date Type Department Care Team Description 11/05/2020 Telephone Pulmonology at [facility] Ruben, Appointment; Other [address] [facility] Ron Sommers ([place] [address] S, RN demand) [phone] Social History Tobacco Use Types Packs/Day Years Used Date Former Smoker Cigarettes 3 40 Quit: 10/08/19 11 Smokeless Tobacco: Never Used Alcohol Use Standard Drinks/Week Comments No 0 (1 standard drink = 0.6 oz pure alcoho l) Sex Assigned at Date Recorded Not on file documented as of this encounter Miscellaneous Notes Telephone Encounter - Tootie Miranda RN - 11/05/2020 1:46 PM EDT Rec'd request from Dr. Mcmullen for patient that had been referred to pulmonology, hoping to get patient to be seen sooner. Dr. Mcmullen explained that the patient had recently had in increase inoxygen demand from 3L to 5L, with patient complaints of worsening SOB with sensation of throat construction from her goiter. Patient was scheduled for new patient on 11/28/[address] Banegas with PFTs on same day. In discussion with on-call provider, patient to be scheduled with Dr. Robles on 11/05/2020 duringurgent visit slots. PFTs scheduling was not possible for immediately prior to appointment time however due to constricted schedule. Patient to be scheduled for PFTs with home visit field care manager and RN for 6 minute walk test afterwards. documented in this encounter Plan of Treatment Not on filedocumented as of this encounter Goals Goal Patient Goal Associated Recent Patient-Stated? Author Type Problems Progress beverages Lifestyle On track Htatie Adams, (09/21/[address] 12:35 PM [...] google or use a book such as Indiegogo (available on Matthew Kenney Cuisine) OR Pear (formerly Apparel Media Group) (if you're using a package, it will have calorie and protein info on the back) - The other thing to write down would be grams of protein - 1500 is a good starting point for a ca jeffrey goal documented as of this encounter Visit Diagnoses Not on filedocumented in this encounter Care Teams Hot Dip Plating Supervisor Relationship Specialty Start Date End Date Alphonso Murphy MD PCP - General Family Medicine 02/19/[address] [place] [address] documented as of this encounter
--- OUTSIDE RECORDS SUMMARY | 2022-04-21 10:52 | XMS_ITS | Encounter Summary ---
:1955 Author Organization [facility] [place] [address] Care Team Providers Name Role Phone Alphonso Murphy MD Primary Care Provider [phone] Encounter Details Date Type Department Care Team Description 12/09/2020 TH Visit (TeleHealth) Same Day at [facility] [place] [address] Social History Tobacco Use Types Packs/Day [...] google or use a book such as Kiyon (available on Lovethelook) OR Dragon Ports (if you're using a package, it will have calorie and protein info on the back) - The other thing to write down would be grams of protein - 1500 is a good starting point for a ca jeffrey goal documented as of this encounter Visit Diagnoses Not on filedocumented in this encounter Care Teams Manager Life Relationship Specialty Start Date End Date Alphonso Murphy MD PCP - General Family Medicine 02/19/[address] [place] [address] documented as of this encounter
--- OUTSIDE RECORDS SUMMARY | 2022-04-21 10:52 | XMS_ITS | Encounter Summary ---
:1955 Author Organization [facility] [place] [address] Care Team Providers Name Role Phone Alphonso Murphy MD Primary Care Provider [phone] Encounter Details Date Type Department Care Team Description 09/06/2019 Telephone Weight and Wellness at [facility] Sorto Ebony Omar [address] [place] [address] Social History Tobacco Use Types Packs/Day Years [...] google or use a book such as Anapsis (available on Zipments) OR Zipalong (if you're using a package, it will have calorie and protein info on the back) - The other thing to write down would be grams of protein - 1500 is a good starting point for a ca jeffrey goal documented as of this encounter Visit Diagnoses Not on filedocumented in this encounter Care Teams Clock And Watch Hands Dipper Relationship Specialty Start Date End Date Alphonso Murphy MD PCP - General Family Medicine 02/19/[address] [place] [address] documented as of this encounter
--- OUTSIDE RECORDS SUMMARY | 2022-04-21 10:52 | XMS_ITS | Encounter Summary ---
:1955 Author Organization [facility] [place] [address] Care Team Providers Name Role Phone Alphonso Murphy MD Primary Care Provider [phone] Encounter Details Date Type Department Care Team Description 07/17/2020 Ancillary Procedure Radiology Library at Josué Murphy [facility] [address] [id number] [phone] Social History Tobacco Use Types Packs/Day Years [...] book such as Calorie Adalberto (available on BeMyEye) OR Channel Intelligence (if you're using a package, it will [...] is for storage only. Alphonso Murphy MD [facility] FILM LIBRARY ORDERABLES Performing Organization Address City/State/ZIP Code Phon e Number [place], [place] documented in this encounter Visit Diagnoses Not on filedocumented in this encounter Care Teams Business Transformation Consultant Relationship Specialty Start Date End Date Alphonso Murphy MD PCP - General Family Medicine 02/19/[address] [place] [address] documented as of this encounter
--- OUTSIDE RECORDS SUMMARY | 2022-04-21 10:52 | XMS_ITS | Encounter Summary ---
:1955 Author Organization [place] [address] Care Team Providers Name Role Phone Alphonso Murphy MD Primary Care Provider [phone] Encounter Details Date Type Department Care Team Description 09/21/2019 Notes Only Auditorium E at [facility] [place] [address] Social History Tobacco Use Types Packs/Day [...] or use a book such as Calorie Solidmation (available on Interact Public Safety) OR SolidFire (if you're using a package, it will have calorie and protein info on the back) - The other thing to write down would be grams of protein - 1500 is a good starting point for a ca jeffrey goal documented as of this encounter Visit Diagnoses Not on filedocumented in this encounter Care Teams Product Line Manager Relationship Specialty Start Date End Date Alphonso Murphy MD PCP - General Family Medicine 02/19/[address] [place] [address] [address] [place] [address] documented as of this encounter
--- OUTSIDE RECORDS SUMMARY | 2022-04-21 10:52 | XMS_ITS | Encounter Summary ---
:1955 Author Organization [facility] [place] [place] [address] Care Team Providers Name Role Phone Alphonso Murphy MD Primary Care Provider [phone] Reason for Visit Reason Comments Follow-up R wrist continued pain Encounter Details Date Type Department Care Team Description 06/24/2020 Office Visit Orthopaedics at [facility] Maddy, Neuritis of right ulnar nerv e; [facility] Osmin Velasquez Jr., MD Carpal tunnel [place] [address] CENTER [phone] ORTHOPAEDIC SURGERY [place], [place] [address] Social History Tobacco Use Types [...] - 06/24/2020 3:40 PM EST Radha Masterson [id number] HISTORY OF PRESENT ILLNESS: Here for ongoing [...] Osmin Castañeda Jr, MD Department of Orthopaedics [facility] documented in this encounter Plan of Treatment [...] or use a book such as Calorie Identyx (available on Book of Odds) OR Nflight Technology (if you're using a package, it will [...] syndrome documented in this encounter Care Teams Water Resource Engineering Specialist Relationship Specialty Start Date End Date Alphonso Murphy MD PCP - General Family Medicine 02/19/[address] [place] [address] documented as of this encounter
--- OUTSIDE RECORDS SUMMARY | 2022-04-21 10:52 | XMS_ITS | Encounter Summary ---
:1955 Author Organization [place] [address] Care Team Providers Name Role Phone Alphonso Murphy MD Primary Care Provider [phone] Reason for Visit Consultation (Routine) - Closed Specialty Diagnoses / Procedures Referred By Contact Refer red To Contact Neurology Diagnoses Neuritis of right ulnar nerve Pain in right wrist Osmin Castañeda [facility] Neurology yg Sims MD [facility] [place] [address] [place] [address] Referral ID Status Reason Start Date Expiration Date Visits V isits Requested Authorized [id number] Closed Consult & 08/06/2019 08/05/2020 1 1 Test Encounter Details Date Type Department Care Team Description 10/22/2019 Procedure visit Neurology at [facility] Derik Agrawal MD Carpal tunnel syndrome on right; [facility] gui ropathy at elbow, right [facility] [address] [place] [phone] Social History Tobacco [...] original note were not included[place] [address] EMG/NCS REPORT 10/22/2019 Patient name: Radha Masterson Date of : 1955 Referring provider: Osmin Castañeda Jr., MD [facility] [place] [address] History and Examination: Referred for EMG studies for R hand pain. She has symptoms in the median distribution of R hand andpain in the R elbow medial aspect. No significant weakness or wasting. On a wheelchair. High BMI. There were no vitals taken for this visit. Nerve Conduction Studies For sensory nerve conduction studies, the amplitude is measured [id number], the latency reported is the distal peak latency, and the conduction velocity, if measured, is determined from onset latencies and is over the extremity. For motor nerve conduction studies, the amplitude is measured [id number], the latency reportedis the distal onset latency,the conduction velocity is calculated over the extremity, and the F wavelatency is the minimum latency. Unless otherwise noted, the upper limb temperature was maintained above 31 degrees Celsius and lowerlimb above 30 degrees. Technologist: GIORGIO Sensory Nerve Conduction Nerve / Sites Rec. Site Peak Lat WORKERS' COMPENSATION MEDIATOR Amp Ref. Distance Onset Alexis Ref. ms [...] elbow. Derik Agrawal MD Department of Neurology [facility] documented in this encounter Plan of [...] or use a book such as Calorie Grinbath (available on Wishabi) OR Innovari (if you're using a package, it will [...] right documented in this encounter Care Teams Supportability Engineer Relationship Specialty Start Date End Date Alphonso Murphy MD PCP - General Family Medicine 02/19/16 [address] [place] [address] documented as of this encounter
--- OUTSIDE RECORDS SUMMARY | 2022-04-21 10:52 | XMS_ITS | Encounter Summary ---
:1955 Author Organization [place] [address] Care Team Providers Name Role Phone Alphonso Murphy MD Primary Care Provider Encounter Details Date Type Department Care Team Description 11/07/2019 Telephone Weight and Wellness at [address] [facility] [address] [place] [address] [place] [address] Social History Tobacco Use Types Packs/Day Years [...] google or use a book such as Dynamo Media (available on Unicon) OR [employer] (if you're using a package, it will have calorie and protein info on the back) - The other thing to write down would be grams of protein - 1500 is a good starting point for a ca jeffrey goal documented as of this encounter Visit Diagnoses Not on filedocumented in this encounter Care Teams Environmental Engineering Technician Relationship Specialty Start Date End Date Alphonso Murphy MD PCP - General Family Medicine 02/19/[address] [place] [address] documented as of this encounter
--- OUTSIDE RECORDS SUMMARY | 2022-04-21 10:52 | XMS_ITS | Encounter Summary ---
:1955 Author Organization [facility] [place] [address] Care Team Providers Name Role Phone Alphonso Murphy MD Primary Care Provider [phone] Encounter Details Date Type Department Care Team Description 11/06/2020 Hospital [place] [address] Social History Tobacco Use Types Packs/Day [...] 06/2019 (FLONASE) 50 route daily as mcg/actuation [place], needed. 04/06 Patient Suspension states that she [...] google or use a book such as 5gig (available on Andela) OR Tip or Skip (if you're using a package, it will [...] / FVC LLN 67 % COMPAS PFT GLT01-40 Actual 0.66 L/s COMPAS PFT Pre-BD BUR12-60 Pre-BD 33 % COMPAS PFT % of Predicted IYC71-21 1.98 L/s COMPAS PFT Predicted TSM18-14 Pre-BD -2.33 COMPAS PFT Z-Score DLCO Hb [...] unspecified documented in this encounter Care Teams Presidential Helicopter Crew Chief Relationship Specialty Start Date End Date Alphonso Murphy MD PCP - General Family Medicine 02/19/[address] [place] [address] documented as of this encounter
--- OUTSIDE RECORDS SUMMARY | 2022-04-21 10:52 | XMS_ITS | Encounter Summary ---
:1955 Author Organization [facility] [place] [address] Care Team Providers Name Role Phone Alphonso Murphy MD Primary Care Provider [phone] Encounter Details Date Type Department Care Team Description 09/03/2020 Telephone General Surgery at [facility] [place] [address] Social History Tobacco Use Types Packs/Day [...] reaction. She does agree to following the [facility] protocol for her upcoming CT and will fruit or nut picker the prescriptionswe sent in, but she plans [...] google or use a book such as Pontaba (available on Dalradian Resources) OR Interface Foundry (if you're using a package, it will have calorie and protein info on the back) - The other thing to write down would be grams of protein - 1500 is a good starting point for a ca jeffrey goal documented as of this encounter Visit Diagnoses Not on filedocumented in this encounter Care Teams Placing Judge Relationship Specialty Start Date End Date Alphonso Murphy MD PCP - General Family Medicine 02/19/[address] [place] [address] documented as of this encounter
--- OUTSIDE RECORDS SUMMARY | 2022-04-21 10:52 | XMS_ITS | Encounter Summary ---
:1955 Author Organization [facility] [place] [address] Care Team Providers Name Role Phone Alphonso Murphy MD Primary Care Provider [phone] Reason for Visit Reason Comments Right Wrist Pain right wrist pain continued, Discuss EMG results from 10/21 Encounter Details Date Type Department Care Team Description 05/27/2020 Office Visit Orthopaedics at [facility] Maddy, Neuritis of right ulnar nerv e; [facility] Osmin Velasquez Jr., MD [place] [address] CENTER [phone] ORTHOPAEDIC SURGERY [place], [place] [address] Social History Tobacco Use Types [...] - 05/27/2020 3:20 PM EDT Radha Masterson [id number] HISTORY OF PRESENT ILLNESS: Here for ongoing [...] Castañeda Jr, MD Department of Orthopaedics [facility] documented in this encounter Plan [...] google or use a book such as ReplyBuy (available on X-1) OR China Communications Services Corporation (if you're using a package, it [...] syndrome documented in this encounter Care Teams Juice Mixer Relationship Specialty Start Date End Date Alphonso Murphy MD PCP - General Family Medicine 02/19/16 [address] [place] [address] documented as of this encounter
--- OUTSIDE RECORDS SUMMARY | 2022-04-21 10:52 | XMS_ITS | Encounter Summary ---
:1955 Author Organization [facility] [place] [address] Care Team Providers Name Role Phone Alphonso Murphy MD Primary Care Provider [phone] Encounter Details Date Type Department Care Team Description 06/18/2020 Telephone Orthopaedics at [facility] Osmin Castañeda [facility] Ron coyle Jr., [place] [address] [facility] [phone] ORTHOPAEDIC SURG [place], [place] [address] (Wo rk) Social History Tobacco [...] google or use a book such as Virtual Telephone & Telegraph (available on AutoAlert) OR Kiio (if you're using a package, it will have calorie and protein info on the back) - The other thing to write down would be grams of protein - 1500 is a good starting point for a ca jeffrey goal documented as of this encounter Visit Diagnoses Not on filedocumented in this encounter Care Teams Ranch Cook Relationship Specialty Start Date End Date Alphonso Murphy MD PCP - General Family Medicine 02/19/[address] [place] [address] documented as of this encounter
--- OUTSIDE RECORDS SUMMARY | 2022-04-21 10:52 | XMS_ITS | Encounter Summary ---
:1955 Author Organization [facility] [place] [address] Care Team Providers Name Role Phone Alphonso Murphy MD Primary Care Provider [phone] Reason for Visit Reason Comments Follow-up Weight Management Encounter Details Date Type Department Care Team Description 09/10/2019 Office Visit Weight and Wellness Tisha Young L, Cl ass 3 severe obesity at [facility] due to excess calories [address] [facility] with serious [place], [place] DR comorbidity and body [phone] [facility] mass index (BMI) of [phone] PRIMARY CARE 60.0 to 69.9 in adult [place], [place] [address] Social History Tobacco Use Types [...] Progress Notes Tisha Young MD - 09/10/2019 1:30 PM EST . [facility] Healthy Living [facility] Visit Patient Name: Radha Masterson Date of : 1955 Age: 64 y.o. Alphonso Murphy MD Thank you for referring Radha Masterson to the [facility] Healthy Living Clinic for consultation regardingobesity. PREVIOUS [...] BMI was 73.8, weight 430 lbs. Saw maintenance supervisor electrical Dimple on 08/20 who wrote: Radha is [...] meat or yogurt. Does not like plain persian yogurt even with adding fruit. Tracking: Started [...] weight. Every pound made my breathing worse. [facility] Initial Responses 08/06/2019 PROMIS 6B Scores [...] metformin. RTC me same day as October maintenance supervisor electrical appt. Contact me with concerns. I spent a total of 30 minutes with the patient 20 minutes of which were spent in [id number] discussion/counseling re obesity, nutrition and activity as [...] google or use a book such as Netac (available on Vigo) OR Tepha (if you're using a package, it will [...] adult documented in this encounter Care Teams Grape Cutter Relationship Specialty Start Date End Date Alphonso Murphy MD PCP - General Family Medicine 02/19/[address] [place] [address] documented as of this encounter
--- OUTSIDE RECORDS SUMMARY | 2022-04-21 10:52 | XMS_ITS | Encounter Summary ---
:1955 Author Organization [facility] [place] [address] Care Team Providers Name Role Phone Alphonso Murphy MD Primary Care Provider [phone] Encounter Details Date Type Department Care Team Description 12/03/2020 TH Visit (TeleHealth) Same Day at [facility] [place] [address] Social History Tobacco Use Types Packs/Day [...] google or use a book such as Accessory Addict Society (available on Red Swoosh) OR Mountvacation (if you're using a package, it will have calorie and protein info on the back) - The other thing to write down would be grams of protein - 1500 is a good starting point for a ca jeffrey goal documented as of this encounter Visit Diagnoses Not on filedocumented in this encounter Care Teams International First Officer Relationship Specialty Start Date End Date Alphonso Murphy MD PCP - General Family Medicine 02/19/[address] [place] [address] documented as of this encounter
--- OUTSIDE RECORDS SUMMARY | 2022-04-21 10:52 | XMS_ITS | Encounter Summary ---
:1955 Author Organization [facility] [place] [address] Care Team Providers Name Role Phone Alphonso Murphy MD Primary Care Provider [phone] Encounter Details Date Type Department Care Team Description 11/07/2019 Telephone Weight and Wellness at [facility] Yoandy Medina, [facility] [address] [place] [address] Social History Tobacco Use Types Packs/Day Years Used Date Former Smoker Cigarettes 3 40 Quit: 10/08/19 11 Smokeless Tobacco: Never Used Alcohol Use Standard Drinks/Week Comments No 0 (1 standard drink = 0.6 oz pure alcoho l) Sex Assigned at Date Recorded Not on file documented as of this encounter Miscellaneous Notes Telephone Encounter - Lisy Medina, [facility] - 11/07/2019 10:03 AM EDT [facility] Technician pre telemedicine visit phone note. [] Confirmed [...] google or use a book such as Planet Expat (available on Porphyrio) OR PresenceLearning (if you're using a package, it will have calorie and protein info on the back) - The other thing to write down would be grams of protein - 1500 is a good starting point for a ca jeffrey goal documented as of this encounter Visit Diagnoses Not on filedocumented in this encounter Care Teams Government Program Manager Relationship Specialty Start Date End Date Alphonso Murphy MD PCP - General Family Medicine 02/19/[address] [place] [address] documented as of this encounter
--- OUTSIDE RECORDS SUMMARY | 2022-04-21 10:52 | XMS_ITS | Encounter Summary ---
:1955 Author Organization [facility] [address] Care Team Providers Name Role Phone Alphonso Murphy MD Primary Care Provider [phone] Encounter Details Date Type Department Care Team Description 08/20/2019 Office Visit Weight and Wellness Dimple Adams BMI 70 and over, adult at [facility] [address] [place] [address] [place] [address] Social History Tobacco Use Types Packs/Day Years [...] - Inhaled Oxygen Concentration - - Weight 185.5 kg (409 lb) 08/20/2019 9:00 AM EST Height 162.6 cm (5' 4.02) 08/20/2019 9:00 AM EST Body Mass Index 70.17 08/20/2019 9:00 AM EST documented in this encounter Patient Instructions Patient InstructionsDimpel Adams RD - 08/20/2019 10:00 AM EST Goals ??? beverages 2% milk is fine [...] google or use a book such as Zilliant (available on WaterSmart Software) OR Kaznachey (if you're using a package, it will [...] working on 3 meals in a day If you get your password sorted out, 51 Auto is a great way to send me a question Touch base with the bariatric surgery team for information on the info session and to get information about your insurance- they like to hear from you. bariatric surgery team ( ) documented in this encounter Progress Notes Dimple Adams RD - 08/20/2019 10:00 AM EST Nutrition Intervention for Weight Management Initial RD visit with Radha Masterson, 1955 Assessment/Nutrition Diagnosis: Pt at increased nutritional risk related to excessive calorie intakeand sub optimal physical activity resulting in overweight/obesity as evidenced by BMI and diet recall Food Trackers: Keeping track in a notebook. Not currently recording calories but has a food scale and has been using this when necessary- or looks at total weight for things like meat and divides to figure out her portion eaten. Activity: Bands daily, 2x/day on the days when doing pulmonary rehab Weight Today: Vitals 08/20/2019 08/06/2019 Height (Lao) 64.016 64.000 Height (Metric) 162.6 cm 162.6 cm Weight (Lao) 409 lbs 430 lbs Weight (Metric) 185.521 kg 195.047 kg BMI (Calculated) 70.16 kg/m2 73.8 kg/m2 Radha is down 21 pounds from her initial visit 2 weeks ago. Recent changes in this time include cutting out soda (previously ~1 liter Mountain Dew in a week), aiming to eat 3 meals a day, choosing smaller portions (especially carbs) and logging foods in a notebook Appetite/Hunger: Radha has not felt hungry or deprived from changes described above Noticed that since eating less, she feels bazan faster and is able to stop eating at this point Typical Dietary Intake: B: 2 hard-boiled eggs or cottage cheese and 1/4 cup strawberries or liverwurst with mustard and cheese (3.5 ounces with 1.3 ounces cheese) L: 2 slices ham, 2 slices cheese D: the other night had 3/4 cup mac and cheese with a lot of chicken (5pm) S: sometimes has a snack at night (once since tracking- around 9pm) Typical Beverages: Has a 16 or 24 ounce bottle of water and has 2 or 3 of these a day Or has a flavored water (probably not an artificial sweetener) Hasn't had any soda since seeing Dr. Young- this is hard but Previous goals set with provider: 1. Tracking 2. Eat breakfast with protein - it's hard- I hate breakfast However, the protein options have not been a problem, even found that she liked [place] yogurt if it had a flavor. THere are a very limited selection of [place] yogurts where Radha lives, she was unsure of the brand. 3. Aim for 3 meals and no snacking after dinner Getting up and making self eat breakfast has been the hardest part, but it's doable. The only day she had a late snack was one where she didn't have lunch, had an early dinner (4pm) and a fruit a few hours after that. Interview: Radha has made some very major changes to her intake and feels that she can continue. She is pleased to have some guidelines with which she can still occasionally have a small portion of mac&cheese,but overall she doesn't miss things like potatoes or rice and has been doing well choosing mostly proteins and veggies at dinner. She had already intuitively made some great choices even though she wasunsure, such as only eating 3/4 cup of the mac and cheese and adding chicken. Clarified which vegetables are considered non-starchy and also provided reassurance that she can have some carbohydrates, just in appropriate portions (1/2 cup) and as long as there is also protein on the plate (ideally also vegetables). Stressed eating the protein first as well. Her weight loss in the past two weeks probably reflects a reduction in soda and portions, especiallycarbohydrates. She has also switched from one meal to three most days. Barriers to Change: None identified at this time Nutrition Goals: Goals ??? beverages 2% milk is [...] google or use a book such as Zilliant (available on WaterSmart Software) OR Kaznachey (if you're using a package, it will [...] working on 3 meals in a day Assessing Calorie Goals at this time? Discussed 1500 as a starting point but will adjust based on baseline data collected this month Monitor/Evaluate: Will follow up for additional consecutive (ie. August, September, October...) monthly visits for a total of 3 RD visits OR as otherwise specified by patient's insurer. Patient will contact bariatric surgery team with any questions about their insurance requirements ( ) Aim for 5-10% weight loss from ABW x 3-6 months from initial visit Thank you Dimple Adams RD LD 60 minutes were spent today in face to [...] or use a book such as Calorie Berry Kitchen (available on WaterSmart Software) OR Catapult Genetics.NanoVasc (if you're using a package, it will have calorie and protein info on the back) - The other thing to write down would be grams of protein - 1500 is a good starting point for a ca jeffrey goal documented as of this encounter Visit Diagnoses Diagnosis BMI 70 and over, adult Body Mass Index 70 and over, adult documented in this encounter Care Teams Dwarf Tree Grower Relationship Specialty Start Date End Date Alphonso Murphy MD PCP - General Family Medicine 02/19/[address] [place] [address] [address] [place] [address] documented as of this encounter
--- OUTSIDE RECORDS SUMMARY | 2022-04-21 10:52 | XMS_ITS | Encounter Summary ---
:1955 Author Organization [facility] [place] [address] Care Team Providers Name Role Phone Alphonso Murphy MD Primary Care Provider [phone] Encounter Details Date Type Department Care Team Description 11/07/2019 Telephone Weight and Wellness at [facility] [address] [place] [address] Social History Tobacco Use Types Packs/Day Years [...] google or use a book such as Heretic Films (available on Xueba100.[email or web address]) OR Compliance Innovations (if you're using a package, it will have calorie and protein info on the back) - The other thing to write down would be grams of protein - 1500 is a good starting point for a ca jeffrey goal documented as of this encounter Visit Diagnoses Not on filedocumented in this encounter Care Teams Filler Operator Relationship Specialty Start Date End Date Alphonso Murphy MD PCP - General Family Medicine 02/19/[address] [place] [address] documented as of this encounter
--- OUTSIDE RECORDS SUMMARY | 2022-04-21 10:53 | XMS_ITS | Encounter Summary ---
:1955 Author Organization [facility] [place] [address] Care Team Providers Name Role Phone Alphonso Murphy MD Primary Care Provider [phone] Encounter Details Date Type Department Care Team Description 08/06/2019 Telephone Weight and Wellness at [facility] Macario Ebony Nelson [address] [place] [address] Social History Tobacco Use Types Packs/Day Years [...] on filedocumented in this encounter Care Teams Paint Line Supervisor Relationship Specialty Start Date End Date Alphonso Murphy MD PCP - General Family Medicine 02/19/[address] [place] [address] documented as of this encounter
--- OUTSIDE RECORDS SUMMARY | 2022-04-21 10:53 | XMS_ITS | Encounter Summary ---
:1955 [place] [address] Care Team Providers Name Role Phone Alphonso Murphy MD Primary Care Provider [phone] Encounter Details Date Type Department Care Team Description 11/29/2018 Ancillary Procedure Radiology Library at Josué Lozano MARITZA GARCIA [facility] [place] [address] PULMONARY MEDICINE [phone] [place], [place] [address] (Wo rk) Social History Tobacco [...] Organization Address City/State/ZIP Code Phon e Number [place], [place] documented in this encounter Visit Diagnoses Not on filedocumented in this encounter Care Teams House Wrecker Relationship Specialty Start Date End Date Alphonso Murphy MD PCP - General Family Medicine 02/19/[address] [place] [address] documented as of this encounter
--- OUTSIDE RECORDS SUMMARY | 2022-04-21 10:53 | XMS_ITS | Encounter Summary ---
:1955 Author Organization [facility] [place] [address] Care Team Providers Name Role Phone Alphonso Murphy MD Primary Care Provider [phone] Reason for Referral Consultation (Routine) - Closed Specialty Diagnoses / Procedures Referred By Contact Refer red To Contact Weight and Wellness Diagnoses Pulmonary hypertension Sunitha Reilly, [facility] Wellness SURGERY SCHEDULING COORDINATOR [address] [place] [address] [place] [address] Referral ID Status Reason Start Date Expiration Date Visits V isits Requested Authorized [id number] Closed Consult, 05/21/2019 05/20/2020 1 1 Test & Treat Reason for Visit Consultation (Routine) - Specialty Diagnoses / Procedures Referred By Contact Refer red To Contact Cardiology Diagnoses PAH (pulmonary arterial hypertension) with portal hypertension Alphonso Muprhy MD D'Anna, Susan P, SURGERY SCHEDULING COORDINATOR [address] [place], [place] [address] [place] [address] Phone: Fax: Referral ID Status Reason Start Date Expiration Date Visits V isits Requested Authorized [id number] Consult, Test 03/21/2019 03/20/2020 6 6 & Treat PCP Updated and/or Approved Encounter Details Date Type Department Care Team Description 05/21/2019 Office Visit Cardiology at [facility] Tex Edwards MD [facility] [place] [place] [address] Pulmonary hypertension [facility] Sunitha Reilly, DEISY [facility] [place] [address] [place] [phone] Social History Tobacco Use Types Packs/Day Years [...] original note were not included. CARDIOVASCULAR MEDICINE [place] [address] New Patient /Consultation Visit Subjective Identification Radha [...] Social History Social History Narrative Lives in [place]. Daughter lives with her for now. Has [...] Nontender. Extremities: Large but no significant edema BRAKE LINING CURER: Normal mentation. Psych: Appropriate affect. I personally [...] hypoxic lung disease. Tex Edwards MD [facility] Director, Pulmonary Hypertension Clinic cc: ?? Alphonso Murphy MD [address] [place], [place] [address]Y [facility] 1 / [facility] [id number] documented in this encounter Plan of Treatment Scheduled Referrals Name Type Priority Associated Diagnoses Order S chedule Referral to Weight Outpatient Referral [facility]ine [facility] hypertension 05/21/2019 documented as of this encounter Procedures Procedure Name Priority Date/Time Associated Diagnosis Comme nts EKG 12-LEAD Routine 05/21/2019 3:55 PM Pulmonary hypertension Results for this EDT procedure are i n the results section. documented in this encounter Results EKG 12 Lead (05/21/2019 3:55 PM EDT) [facility] Method Time Signature Ventricular rate 80 BPM MUSE SYSTEM Atrial Rate 80 BPM MUSE SYSTEM P-R Interval 170 ms MUSE SYSTEM QRS Duration 88 ms MUSE SYSTEM Q-T Interval 402 ms MUSE SYSTEM QTC Calculated 463 ms MUSE SYSTEM (Bezet) Calculated P [place] 54 degrees MUSE SYSTEM Calculated R [place] 65 degrees MUSE SYSTEM Calculated T [place] 42 degrees MUSE SYSTEM INTERPRETATION Normal sinus rhythm MUSE SYSTEM Normal ECG When compared with ECG of 16-JAN-2017 23:16, QRS duration has decreased Confirmed by MD Verito, Shannon ([id number]) on 05/21/2019 8:1 0:14 PM Specimen Anatomical Collection Method Collection Time Receive d Time (Source) Location / / Volume Laterality 05/21/2019 3:55 PM 9 8:10 EDT PM EDT Sunitha Reilly APRN ECG ORDERABLES Performing Organization Address City/State/ZIP Code Phon e Number MUSE SYSTEM documented in this encounter Visit Diagnoses Diagnosis Pulmonary hypertension Other chronic pulmonary heart diseases documented in this encounter Care Teams Mason Tender Relationship Specialty Start Date End Date Alphonso Murphy MD PCP - General Family Medicine 02/19/[address] [place] [address] documented as of this encounter
--- OUTSIDE RECORDS SUMMARY | 2022-04-21 10:53 | XMS_ITS | Encounter Summary ---
:1955 Author Organization [facility] [place] [address] Care Team Providers Name Role Phone Alphonso Murphy MD Primary Care Provider [phone] Encounter Details Date Type Department Care Team Description 03/20/2019 Ancillary Procedure Radiology Library at Josué Murphy [facility] [address] [phone] Social History Tobacco Use Types Packs/Day Years [...] Organization Address City/State/ZIP Code Phon e Number [place], [place] documented in this encounter Visit Diagnoses Not on filedocumented in this encounter Care Teams Booking Clerk Relationship Specialty Start Date End Date Alphonso Murphy MD PCP - General Family Medicine 02/19/[address] [place] [address] documented as of this encounter
--- OUTSIDE RECORDS SUMMARY | 2022-04-21 10:53 | XMS_ITS | Encounter Summary ---
:1955 Author Organization [facility] [place] [address] Care Team Providers Name Role Phone Alphonso Murphy MD Primary Care Provider [phone] Encounter Details Date Type Department Care Team Description 05/09/2019 Ancillary Procedure Radiology Library at Josué Murphy [facility] [address] [phone] Social History Tobacco Use Types Packs/Day Years [...] Organization Address City/State/ZIP Code Phon e Number [place], [place] documented in this encounter Visit Diagnoses Not on filedocumented in this encounter Care Teams Color Receiver Relationship Specialty Start Date End Date Alphonso Murphy MD PCP - General Family Medicine 02/19/[address] [place] [address] documented as of this encounter
--- OUTSIDE RECORDS SUMMARY | 2022-04-21 10:53 | XMS_ITS | Encounter Summary ---
:1955 Author Organization [facility] [place] [address] Care Team Providers Name Role Phone Alphonso Murpyh MD Primary Care Provider [phone] Encounter Details Date Type Department Care Team Description 06/27/2019 Ancillary Procedure Radiology Library at Josué Murphy [facility] [address] [phone] Social History Tobacco Use Types Packs/Day Years [...] Diagnosis Comme nts FILM LIBRARY Routine 06/27/2019 12:05 AM Results for this STORAGE ONLY DX EST procedure ar e in WRIST the results section. documented in this encounter Results Film Library- Storage Only DX Wrist (06/27/2019 12:05 AM EST) Specimen (Source) Anatomical Location Collection Method / Collectio n Time Received Time / Laterality Volume Narrative RAD - 07/02/2019 1:27 PM EST This exam is auto-finalizing. It's purpo se is for storage only. Alphonso Murphy MD IM FILM LIBRARY ORDERABLES Performing Organization Address City/State/ZIP Code Phon e Number [place], [place] documented in this encounter Visit Diagnoses Not on filedocumented in this encounter Care Teams Drying Room Attendant Relationship Specialty Start Date End Date Alphonso Murphy MD PCP - General Family Medicine 02/19/[address] [place] [address] documented as of this encounter
--- OUTSIDE RECORDS SUMMARY | 2022-04-21 10:53 | XMS_ITS | Encounter Summary ---
:1955 Author Organization [facility] [place] [address] Care Team Providers Name Role Phone Alphonso Murphy MD Primary Care Provider [phone] Reason for Referral Consultation (Routine) - Closed Specialty Diagnoses / Procedures Referred By Contact Refer red To Contact Neurology Diagnoses Neuritis of right ulnar nerve Pain in right wrist Osmin Castañeda [facility] Neurology [place] [address] [place] [address] Referral ID Status Reason Start Date Expiration Date Visits V isits Requested Authorized [id number] Closed Consult & 08/06/2019 08/05/2020 1 1 [...] wrist, initial encounter Jose A Cabrera MD [facility] Orthopaedics 3a [address] [facility] [place] [address] Referral ID Status Reason Start Date Expiration Date Visits V isits Requested Authorized [id number] Closed Consult, Test 07/03/2019 07/02/2020 1 1 & [facility] PCP Updated and/or Approved Encounter Details Date Type Department Care Team Description 08/06/2019 Office Visit [place] [facility] [place]addy, Neuritis of right ulnar nerv e; [facility] Osmin Velasquez Jr., MD [place] [address] CENTER [phone] ORTHOPAEDIC SURGERY [place], [place] [address] Social History Tobacco Use Types [...] 08/06/2019 1:30 PM EST Radha Masterson 1955 [id number] 08/06/2019 HPI: Radha is 64 y.o. RIGHT [...] INTERFACE TOTAL KNEE REVISION ARTHROPLASTY,COMPLETE / LEFT/AMAN LCCK/AAMN LPS/ANTIBIOTIC CEMENT ProcedureDate: 11/23/2005 Family History Problem [...] file Gets together: Not on file Attends episcopal service: Not on file Active member of [...] on file Social History Narrative Lives in [facility]. Daughter lives with her for [...] 0 ??? fluticasone propionate (FLONASE) 50 mcg/actuation [place], Suspension SHAKE LQ AND U 1 SPR [...] Osmin Castañeda Jr, MD Department of Orthopaedics [facility] documented in this encounter Plan [...] forearm documented in this encounter Care Teams Sanitation Associate Relationship Specialty Start Date End Date Alphonso Murphy MD PCP - General Family Medicine 02/19/[address] [place] [address] documented as of this encounter
--- OUTSIDE RECORDS SUMMARY | 2022-04-21 10:53 | XMS_ITS | Encounter Summary ---
:1955 Author Organization [facility] Address [address] [place] [address] Care Team Providers Name Role Phone Alphonso Murphy MD Primary Care Provider [phone] Encounter Details Date Type Department Care Team Description 08/06/2019 Orders Only Orthopaedics at [facility] Maddy, Pain in right wrist [facility] Ron Velasquez Jr., [place] [address] [facility] [phone] DR ORTHOPAEDIC SURGERY [place], [place] [address] Social History Tobacco Use Types [...] please contact e number below. ? Narrative 08/06/2019 3:46 PM EST EXAMINATION: XR [...] this report, please contact e number below. Osmin Castañeda Jr., MD IMG DX ORDERABLES documented in this encounter Visit Diagnoses Diagnosis Pain in right wrist Pain in joint, forearm Pain in right wrist Pain in joint, forearm documented in this encounter Care Teams Php Consultant Relationship Specialty Start Date End Date Alphonso Murphy MD PCP - General Family Medicine 02/19/16 [address] [place] [address] documented as of this encounter
--- OUTSIDE RECORDS SUMMARY | 2022-04-21 10:53 | XMS_ITS | Encounter Summary ---
:1955 Author Organization [facility] [place] [address] Care Team Providers Name Role Phone Alphonso Murphy MD Primary Care Provider [phone] Reason for Visit Reason Comments Medication Refill Encounter Details Date Type Department Care Team Description 05/23/2019 Refill Hematology and Oncology at Tomás [place] [address] [place] [address] [phone] Social History Tobacco Use Types Packs/Day Years [...] book such as Calorie Adalberto (available on [employer]) OR Accumulate (if you're using a package, it will have calorie and protein info on the back) - The other thing to write down would be grams of protein - 1500 is a good starting point for a ca jeffrey goal documented as of this encounter Visit Diagnoses Not on filedocumented in this encounter Care Teams Surveillance Officer Relationship Specialty Start Date End Date Alphonso Murphy MD PCP - General Family Medicine 02/19/[address] [place] [address] [address] [place] [address] documented as of this encounter
--- OUTSIDE RECORDS SUMMARY | 2022-04-21 10:53 | XMS_ITS | Encounter Summary ---
:1955 Author Organization [facility] [place] [address] Care Team Providers Name Role Phone Alphonso Murphy MD Primary Care Provider [phone] Encounter Details Date Type Department Care Team Description 05/21/2019 Hospital Encounter Cardiac Rehab [facility] Cardiac Rehab Pr og, [facility] [place] [address] Social History Tobacco Use Types Packs/Day [...] on filedocumented in this encounter Care Teams Library Paraprofessional Relationship Specialty Start Date End Date Alphonso Murphy MD PCP - General Family Medicine 02/19/[address] [place] [address] documented as of this encounter
--- OUTSIDE RECORDS SUMMARY | 2022-04-21 10:53 | XMS_ITS | Encounter Summary ---
:1955 Author Organization [facility] [place] [address] Care Team Providers Name Role Phone Alphonso Murphy MD Primary Care Provider [phone] Reason for Visit Consultation (Routine) - Closed Specialty Diagnoses / Procedures Referred By Contact Refer red To Contact Weight and Wellness Diagnoses Pulmonary hypertension Sunitha Reilly P, Htr Weight Wellness VAN OWNER OPERATOR [address] [place] [address] [place] [address] Referral ID Status Reason Start Date Expiration Date Visits V isits Requested Authorized [id number] Closed Consult, 05/21/2019 05/20/2020 1 1 Test & Treat Encounter Details Date Type Department Care Team Description 08/06/2019 Office Visit Weight and Wellness Tisha Young Mo rbid obesity with BMI of 70 and over, adult (Primary Dx); at [facility] Obesity, unspecified classification, uns pecified obesity type, unspecified whether serious comorbidity present; [facility] Other specified disorders of carbohydrate metabolism ; [place], [place] Prediabetes ; [id number] [facility] Grief at loss of child [phone] [facility] [place] [address] Social History Tobacco Use Types Packs/Day [...] have labs. Intake appointment with our health reading coach and dietitian to be scheduled. See [...] involves regular visits with me and the clerk supervisor and (if desired) the health reading coach (but not the classes). We also [...] first psychologist visit is done after 2 clerk supervisor visits. ( ) I requested that you be put on the waiting list for the ACT group. ( ) I requested that you be put on the waiting list for our psychologist. ( ) bariatric pathway. Initial goals: Tracking: Please track calorie intake via a paper journal or free calorie-tracking guerita on your smart phone (like SpiderOak or [employer] It) for review by our dietitian. Activity: [...] egg, or cottage cheese. You don't like yemeni yogurt. Make sleep a priority. ( ) [...] have questions or concerns please send a Everlaw message or call the office. I am [...] Mindful Diet by Kim Molina and the [facility] group. Emotional eating: End Emotional [...] Date: 08/06/19 PI/Designee: Dr. Nakul Nguyen/Mike Becerra [facility] [id number]: [facility] Biorepository VELOS: [id number] Radha Masterson??consented to participate in the above-named [...] 08/06/2019 9:00 AM EST [facility] [place] Visit Patient Name: Radha Masterson Date of : 1955 Age: 64 y.o. Patient lives in: [place], [place] .Referred by: Sunitha Reilly of cardiology. Alphonso Murphy MD Is PCP. Thank you for referring Radha Masterson to the [facility] [place] for a consultation for obesity management. I reviewed past records including notes, labs, available survey results and other available data and discussed them with the patient. CHIEF COMPLAINT: Management of excess weight HISTORY OF PRESENT ILLNESS: Radha Masterson is a 64 y.o. female referred to the [facility] for an evaluation of obesity. This is [...] here because I came down to see folded towel machine operator because a valve in my heart is enlarged and has a lot of pressure. They and my doc says I have to lose some weight. I have always been big. When I was still walking I was 360 lbs and I went to work every day. 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 Sees lung doctor in [facility]. Last time she was in the hospital: [facility] a few months. Was on prednisone. On pred 2 to 3 x per year. From [facility] cardiology eval of 05/2019: She has mild [...] eating: No Fast food, including pizza and Egyptian: once or twice per month. Do you cook? Yes. Lives alone. Her 2 grandchildren stay over a few times per week. She does the grocery shopping, takes shuttle bus. Have you taken prescription meds for weight loss? No Worked with a clerk supervisor? Yes but was of no help. Talked about dividing plate into 4. Do you do tracking of your food intake? No. Activity/exercise: Can walk 10 to 20 feet with walker, Cannot walk without walker, Sister helps her with showering. Uses medical rides. Friend brought her today. Does not drive. [facility] Initial Responses 08/06/2019 PROMIS 6B Scores 35.1 [...] Social History: Reviewed. G[place] in : [place] The patient's support system includes: Sister, Oldest [...] AND RECOMMENDATIONS: Radha Masterson presents to the [facility] for a consultative visit regarding obesity management. [...] that obesity is a chronic disease requiring exterminator termite management. Obesity is associated with increased risk [...] classes for 16 weeks, then monthly health reading coach visits along with regular provider and clerk supervisor visits. The medical management pathway involves regular provider and clerk supervisor visits and optional health reading coach visits. Patient lives one hour away anddepends on medical rides so HL will not work for her since rides to classes are not covered. Will schedule a baseline nutrition, health reading coach Assessment. Preliminary goals for healthy eating, [...] Pulmonary HTN: cardiology note reviewed. . Sees motor vehicle licence examiner in [facility]. #DAVID: ?? diagnosed with sleep study Continue biPAP as prescribed Patient Instructions II recommend increasing the metformin to full dose which is 1000 mg twice daily. I did not do this today because I don't have labs. Intake appointment with our health reading coach and dietitian to be scheduled. See [...] involves regular visits with me and the clerk supervisor and (if desired) the health reading coach (but not the classes). We also [...] first psychologist visit is done after 2 clerk supervisor visits. ( ) I requested that you be put on the waiting list for the ACT group. ( ) I requested that you be put on the waiting list for our psychologist. ( ) bariatric pathway. Initial goals: Tracking: Please track calorie intake via a paper journal or free calorie-tracking guerita on your smart phone (like SpiderOak or L[employer] It) for review by our [...] egg, or cottage cheese. You don't like yemeni yogurt. Make sleep a priority. ( ) [...] have questions or concerns please send a Everlaw message or call the office. I am [...] Mindful Diet by Kim Molina and the [facility] group. Emotional eating: End Emotional [...] 35 minutes of which were spent in [id number]-bh-[id number] discussion/counseling re obesity,medication, nutrition and activity as [...] google or use a book such as LayerBoom (available on Yakaz) OR NuLabel (if you're using a package, it will have calorie and protein info on the back) - The other thing to write down would be grams of protein - 1500 is a good starting point for a ca jeffrey goal documented as of this encounter Results Vitamin B12 (09/10/2019 1:29 PM EST) athologist Signature Vitamin B-12 450 232 - 1,245 [facility] pg/mL [facility] Specimen Anatomical Collection Method Collection Time Receive d Time (Source) Location / / Volume Laterality Blood specimen 09/10/2019 1:29 PM 020 4:17 (specimen) EST PM EST Resulting Agency Comment Spec In Lab Tisha Young MD CHEMISTRY ORDERABLES Performing Organization Address City/State/ZIP Code [place] [address] (ABNORMAL) Vitamin D, 25-Hydroxy (09/10/2019 1:29 PM EST) athologist Signature 25-OH Vit D 12 (L) 30 - 100 [facility] Total ng/mL [facility] Comment: As of 2019, 25-hydroxyvitamin D kyler ting has moved from the IDS-iSYS to the Moy Hubert. No substantial change in sd asured values is expected. Specimen Anatomical Collection Method Collection Time Receive d Time (Source) Location / / Volume Laterality Blood specimen 09/10/2019 1:29 PM 020 4:17 (specimen) EST PM EST Resulting Agency Comment Spec In Lab Tisha Young MD CHEMISTRY ORDERABLES Performing Organization Address City/[facility]/ZIP Code Phon e Number [address] TSH (09/10/2019 1:29 PM EST) P athologist Signature TSH 1.38 0.27 - 4.20 [facility] mcIU/mL [facility] Specimen Anatomical Collection Method Collection Time Receive d Time (Source) Location / / Volume Laterality Blood specimen 09/10/2019 1:29 PM 020 4:18 (specimen) EST PM EST Resulting Agency Comment Spec In Lab Tisha Young MD CHEMISTRY ORDERABLES Performing Organization Address City/[facility]/ZIP Code Phon e Number [address] Hemoglobin A1c (09/10/2019 1:29 PM EST) athologist Signature Hemoglobin A1C 5.6 4.3 - 5.6 [facility] Comment: Reference Range: 4.3 [...] Mellitus, Diabetes Care 2013; 36: Suppl. 1, S67-75 Est Avg Gluc 113 mg/dL [facility] Comment: eAG equivalents for HbA1c [...] into estimated average glucose values. ??Diabetes Care 2008:31(8):4068-3760. Specimen Anatomical Collection Method Collection Time Receive d Time (Source) Location / / Volume Laterality Blood specimen 09/10/2019 1:29 PM 020 4:12 (specimen) EST PM EST Resulting Agency Comment Spec In Lab Tisha Young MD CHEMISTRY ORDERABLES Performing Organization Address City/State/ZIP Code Phon e Number [place] [phone] (ABNORMAL) CMP w/fasting Glucose (09/10/2019 1:29 PM EST) athologist Signature Glucose 100 (H) 65 - 99 [facility] Fasting mg/dL [facility] Comment: ?Fasting* Glucose Interpretive C [...] of Diabetes Mellitus, Position Statement from the [place] [employer]. ??Diabete s Care, Volume 33, Supplement 1, Aug 2009 BUN 17 8 - 18 mg/dL [facility] Creatinine 0.59 (L) 0.70 - 1.20 mg/dL [facility] Sodium 141 135 - 145 mmol/L [facility] Potassium 3.8 3.5 - 5.0 mmol/L [facility] Comment: Please note: ??Patients with WBC >100,00 0 may have falsely elevated Potassium levels. ??For accurate Potassium quantif ication in these patients send serum separator tube (gold top) for subsequent determinations. ??Contact the Clinical Chemistry Laboratory if there are any qu estions. Chloride 101 98 - 107 mmol/L [facility] CO2 28 22 - 31 mmol/L [facility] Anion Gap 12 5 - 15 mmol/L [facility] Calcium 9.7 8.5 - 10.5 mg/dL [facility] Total Protein 7.4 6.1 - 8.0 gm/dL [facility] Albumin 4.1 3.2 - 5.2 gm/dL [facility] AST 32 (H) 0 - 30 unit/L [facility] ALT 38 (H) 0 - 30 unit/L [facility] Alk Phos 74 35 - 105 unit/L [facility] Total Bilirubin 1.2 0.2 - 1.3 mg/dL [facility] Estimated GFR 98 >=60 mL/min/1.73 m?? [facility] Comment: The eGFR was calculated using the CKD-EP I equation. As with all creatinine based estimates of kidney function, eGFR values calculated with the CKD-EPI equation are not accurate in patients wi th acute kidney failure, extremes of body mass or the acutely ill. http://Adelphic Mobile/[facility]nkf eGFR 113 >=60 mL/min/1.73 m?? [facility] Comment: The eGFR was calculated using the CKD-EP I equation. As with all creatinine based estimates of kidney function, eGFR values calculated with the CKD-EPI equation are not accurate in patients wi th acute kidney failure, extremes of body mass or the acutely ill. http://Adelphic Mobile/[facility] Specimen Anatomical Collection Method Collection Time Receive d Time (Source) Location / / Volume Laterality Blood specimen 09/10/2019 1:29 PM 020 4:18 (specimen) EST PM EST Resulting Agency Comment Spec In Lab Tisha Young MD CHEMISTRY ORDERABLES Performing Organization Address City/[facility]/ZIP Code Phon e Number [address] Biorepository Request (09/10/2019 1:29 PM EST) [facility] gist Method Time Signature Biorepository Sample in [facility] LABORATORY Specimen Anatomical Collection Method Collection Time Receive d Time (Source) Location / / Volume Laterality Blood specimen 09/10/2019 1:29 PM 020 9:23 (specimen) EST AM EST Resulting Agency Comment Spec In Lab Tisha Young MD CHEMISTRY ORDERABLES Performing Organization Address City/[facility]/ZIP Code Phon e Number [address] documented in this encounter Visit Diagnoses Diagnosis Morbid obesity with BMI of 70 and over, adult - Primary Morbid obesity Obesity, unspecified classification, uns pecified obesity type, unspecified whether serious comorbidity present Other specified disorders of carbohydrat e metabolism Prediabetes Other abnormal glucose Grief at loss of child Adjustment disorder with depressed mood documented in this encounter Care Teams Pedal Assembler Relationship Specialty Start Date End Date Alphonso Murphy MD PCP - General Family Medicine 02/19/16 [address] [place] [address] documented as of this encounter
--- OUTSIDE RECORDS SUMMARY | 2022-04-21 10:53 | XMS_ITS | Encounter Summary ---
:1955 Author Organization [facility] [place] [address] Care Team Providers Name Role Phone Alphonso Murphy MD Primary Care Provider [phone] Encounter Details Date Type Department Care Team Description 08/06/2019 Hospital Encounter XRay at [facility] [place] Maddy, Pain in right wrist 1 [facility] [address]as[address] [place] [address] [facility] [phone] [facility] [place], [place] [id number] Social History Tobacco Use Types Packs/Day Years [...] (FLONASE) 50 route daily as needed. mcg/actuation [place], 04/06 Patient states Suspension that she only [...] forearm documented in this encounter Care Teams Behavioral Sciences Instructor Relationship Specialty Start Date End Date Alphonso Murphy MD PCP - General Family Medicine 02/19/[address] [place] [address] [address] [facility] [address] [place] [address] documented as of this encounter
--- OUTSIDE RECORDS SUMMARY | 2022-04-21 10:53 | XMS_ITS | Encounter Summary ---
:1955 [place] [address] Care Team Providers Name Role Phone Alphonso Murphy MD Primary Care Provider Encounter Details Date Type Department Care Team Description 12/13/2018 Ancillary Procedure Radiology Library at Josué Lozano MARITZA GARCIA [facility] [place] [address] PULMONARY MEDICINE [phone] [place], [place] [address] (Wo rk) Social History Tobacco [...] Organization Address City/State/ZIP Code Phon e Number [place], [place] documented in this encounter Visit Diagnoses Not on filedocumented in this encounter Care Teams Account Strategist Relationship Specialty Start Date End Date Alphonso Murphy MD PCP - General Family Medicine 02/19/[address] [place] [address] documented as of this encounter
--- OUTSIDE RECORDS SUMMARY | 2022-04-21 10:53 | XMS_ITS | Encounter Summary ---
:1955 [place] [address] Care Team Providers Name Role Phone Alphonso Murphy MD Primary Care Provider [phone] Encounter Details Date Type Department Care Team Description 12/04/2018 Ancillary Procedure Radiology Library at Josué Lozano MARITZA GARCIA [facility] [place] [address] PULMONARY MEDICINE [phone] [place], [place] [address] (Wo rk) Social History Tobacco [...] Code Phon e Number [place], [place] documented in this encounter Visit Diagnoses Not on filedocumented in this encounter Care Teams Vehicle Detailer Relationship Specialty Start Date End Date Alphonso Murphy MD PCP - General Family Medicine 02/19/[address] [place] [address] documented as of this encounter
--- OUTSIDE RECORDS SUMMARY | 2022-04-21 10:53 | XMS_ITS | Encounter Summary ---
:1955 Author Organization [facility] [place] [address] Care Team Providers Name Role Phone Alphonso Murphy MD Primary Care Provider [phone] Encounter Details Date Type Department Care Team Description 06/27/2019 Ancillary Procedure Radiology Library at Josué Murphy [facility] [address] [id number] [phone] Social History Tobacco Use Types Packs/Day Years [...] Organization Address City/State/ZIP Code Phon e Number [place], [place] documented in this encounter Visit Diagnoses Not on filedocumented in this encounter Care Teams Stamp Mounter Relationship Specialty Start Date End Date Alphonso Murphy MD PCP - General Family Medicine 02/19/[address] [place] [address] documented as of this encounter
--- OUTSIDE RECORDS SUMMARY | 2022-04-21 10:54 | XMS_ITS | Encounter Summary ---
:1955 Author Organization [facility] [place] [address] Care Team Providers Name Role Phone Sunitha Milligan MD Primary Care Provider Reason for Referral Consultation (Routine) - Complete - Unable to Contact Patient Specialty Diagnoses / Procedures Referred By Contact Refer red To Contact Pain Management Diagnoses Other chest pain Padmini Lozano MD [facility] 3d [facility] D [facility] PULMONARY [address] [address] Fax: Referral ID Status Reason Start Expiration Visits Visits Date Date Requested Authorized [id number] Complete - Consult, 11/08/2014 11/08/2015 3 3 Unable to Test & Contact Treat Patient Reason for Visit Reason Comments Follow-up Encounter Details Date Type Department Care Team Description 11/08/2014 Follow-Up Pulmonology at [facility] SCHEDULE 1, PFT Other chest pain; [facility] Padmini Rico MD [facility] [place] [address] [place] [address] Social History Tobacco Use Types Packs/Day [...] this box is checked, you need to orange picker a prescription at your pharmacy. Important Things You Talked About With Your Doctor You will hear from pain service regarding appointment. Communication With Your Local Health Care Providers The [facility] medical record system allows for electronic [...] effusion documented in this encounter Care Teams Auto Wheel Alignment Specialist Relationship Specialty Start Date End Date Sunitha Milligan MD PCP - General 07/07/10 02/18/16 [address] [place] [address] documented as of this encounter
--- OUTSIDE RECORDS SUMMARY | 2022-04-21 10:54 | XMS_ITS | Encounter Summary ---
:1955 Author Organization [facility] [place] [address] Care Team Providers Name Role Phone Sunitha Milligan MD Primary Care Provider Encounter Details Date Type Department Care Team Description 11/08/2014 Hospital Encounter Pulmonology at [facility] FRY (dyspnea on [facility] exertion) [place] [address] Social History Tobacco Use Types Packs/Day [...] y documented in this encounter Care Teams Administrative Support Clerk Relationship Specialty Start Date End Date Sunitha Milligan MD PCP - General 07/07/10 02/18/16 [address] [place] [address] documented as of this encounter
--- OUTSIDE RECORDS SUMMARY | 2022-04-21 10:54 | XMS_ITS | Encounter Summary ---
:1955 Author Organization [facility] [place] [address] Care Team Providers Name Role Phone Sunitha Milligan MD Primary Care Provider Encounter Details Date Type Department Care Team Description 04/25/2014 Orders Only MRI at [facility] Sunitha Milligan MD [facility] D jonna [address] [place] [address] [place] [address] [phone] (Wo rk) Social History Tobacco Use Types Packs/Day Years Used Date Never Assessed Sex Assigned at Date Recorded Not on file documented as of this encounter Plan of Treatment Not on filedocumented as of this encounter Visit Diagnoses Not on filedocumented in this encounter Care Teams Professional Services Consultant Relationship Specialty Start Date End Date Sunitha Milligan MD PCP - General 07/07/10 02/18/16 [address] [place] [address] documented as of this encounter
--- OUTSIDE RECORDS SUMMARY | 2022-04-21 10:54 | XMS_ITS | Encounter Summary ---
:1955 Author Organization [facility] [place] [address] Care Team Providers Name Role Phone Sunitha Milligan MD Primary Care Provider Encounter Details Date Type Department Care Team Description 06/11/2014 Orders Only Radiology Mendy Talbot, Pleural effusion [facility] [place] (Primary Dx) [place] [address] DIAGNOSTIC RADIOLOGY [place], [place] [address] Social History Tobacco Use Types [...] documented in this encounter Care Teams Clinical Product Specialist Relationship Specialty Start Date End Date Sunitha Milligan MD PCP - General 07/07/10 02/18/16 [address] [place] [address] documented as of this encounter
--- OUTSIDE RECORDS SUMMARY | 2022-04-21 10:54 | XMS_ITS | Encounter Summary ---
:1955 Author Organization [facility] [place] [address] Care Team Providers Name Role Phone Sunitha Milligan MD Primary Care Provider Encounter Details Date Type Department Care Team Description 06/11/[address] Scan at [facility] [place] [address] Social History Tobacco Use Types Packs/Day [...] effusion documented in this encounter Care Teams Night Order Selector Relationship Specialty Start Date End Date Sunitha Milligan MD PCP - General 07/07/10 02/18/[address] [place] [address] documented as of this encounter
--- OUTSIDE RECORDS SUMMARY | 2022-04-21 10:54 | XMS_ITS | Encounter Summary ---
:1955 Author Organization [facility] [place] [address] Care Team Providers Name Role Phone Alphonso Murphy MD Primary Care Provider Encounter Details Date Type Department Care Team Description 01/17/2017 Hospital Encounter [place]iology [place] [address] Social History Tobacco Use Types Packs/Day [...] by Each Nare 0 11/1305/21/2019 50 mcg/actuation [place], route daily. Suspension furosemide (LASIX) 40 Take [...] chest with intravenous contrast was performed at [facility]. COMPARISON: CTA of the chest 02/19/16 [...] chest with intravenous contrast was performed at [facility]. COMPARISON: CTA of the chest 02/19/16 [...] on filedocumented in this encounter Care Teams Household Refrigeration Mechanic Relationship Specialty Start Date End Date Alphonso Murphy MD PCP - General Family Medicine 02/19/[address] [place] [address] documented as of this encounter
--- OUTSIDE RECORDS SUMMARY | 2022-04-21 10:54 | XMS_ITS | Encounter Summary ---
:1955 Author Organization [facility] [place] [address] Care Team Providers Name Role Phone Sunitha Trotter MD Primary Care Provider Encounter Details Date Type Department Care Team Description 06/11/2014 Hospital Encounter Radiology at [facility], DR VICTOR Pleural effusion on right; [facility] Padmini Lozano MD [facility] [address] [place] [address] Social History Tobacco Use Types [...] fall and right chest injury. Referred to [facility] for chest tube placement on 03/24/14 and later returned to [facility]. Effusion seen on recent CT scan [...] Werner RN - 06/07/2014 4:09 PM EDT [facility] NURSING DATABASE Name: CYN MASTERSON Date of : 1955 AGE 59 y.o. Address: [address] [address] (home) Mobile: No relevant phone numbers on [...] informed this patient that they require a helper/driver to drive them home after this procedure. In the absence of a helper/driver, IR will not be able to perform [...] TIME W/IMAGE DOCUMENTATION VIR Procedure Note A# [id number] Indication: 59 yo morbidly obese woman found to have right pleural effusion after fall and right chest injury. Referred to [facility] for chest tube placement on 03/24/14 and later returned to [facility]. Effusion seen on recent CT scan [...] 1. PRG ?? US CHEST REAL TIME [81657 (CPT)] ?; ?? {CR} ? ; ?? {CR} ? ; ? VIR Proced ure Note ?A# ?? [id number] ?Indication: ?? 59 yo morbidly obese woman found to have right ?? pleural effusion after fall and right chest injury. Referred to [facility] for ?? chest tube placement on 03/24/14 and later returned to [facility]. Effusion seen on ?? recent CT [...] ; 1. PRG US CHEST REAL TIME [50155 (CPT)] ; {CR} ; {CR} ; VIR Procedure Note A# [id number] Indicat ion: 59 yo morbidly obese woman found to have right pleural effusion after fall and right chest injury. Referred to [facility] for chest tube placement on 03/24/14 and later returned to [facility]. Effusion seen on recent CT scan [...] Platelets 251 145 - 370 CERNER x10(3)/mcL [facility] Specimen Anatomical Collection Method Collection Time Receive d Time (Source) Location / / Volume Laterality Blood specimen 06/11/2014 11:26 4 (specimen) AM EDT 11:28 AM EDT Resulting Agency Comment Spec In Lab Luke Christianson MD HEMATOLOGY ORDERABLES Performing Organization Address City/State/ZIP Code Phon e Number [place] [id number] [facility] documented in this encounter Visit Diagnoses [...] Procedure) documented in this encounter Care Teams Bow Rehairer Relationship Specialty Start Date End Date Sunitha Trotter MD PCP - General 07/07/10 02/18/16 [address] [place] [address] documented as of this encounter
--- OUTSIDE RECORDS SUMMARY | 2022-04-21 10:54 | XMS_ITS | Encounter Summary ---
:1955 Author Organization [facility] Address [address] [place] [address] Care Team Providers Name Role Phone Alphonso Murphy MD Primary Care Provider [phone] Encounter Details Date Type Department Care Team Description 01/10/2017 Hospital Encounter [place] [address] Social History Tobacco Use Types Packs/Day [...] by Each Nare 0 11/1305/21/2019 50 mcg/actuation [place], route daily. Suspension furosemide (LASIX) 40 Take [...] Organization Address City/State/ZIP Code Phon e Number [place], [place] documented in this encounter Visit Diagnoses Not on filedocumented in this encounter Care Teams Facialist Relationship Specialty Start Date End Date Alphonso Murphy MD PCP - General Family Medicine 02/19/[address] [place] [address] documented as of this encounter
--- OUTSIDE RECORDS SUMMARY | 2022-04-21 10:54 | XMS_ITS | Encounter Summary ---
:1955 [place] [address] Care Team Providers Name Role Phone Alphonso Murphy MD Primary Care Provider [phone] Encounter Details Date Type Department Care Team Description 01/15/2017 Hospital Encounter Radiology Library at [facility], Herbert Salcido [facility] [place] [address] [facility] [phone] [place], [place] [address] (Wo rk) Social History Tobacco [...] by Each Nare 0 11/1305/21/2019 50 mcg/actuation [place], route daily. Suspension furosemide (LASIX) 40 Take [...] Time Received Time / Laterality Volume Narrative [facility] - 01/15/2017 11:09 PM EDT This exam is for storage only and is aut o-finalizing. Nakul Garland MD IMG FILM LIBRARY ORDERABLES Performing Organization Address City/State/ZIP Code Phon e Number [place], [place] documented in this encounter Visit Diagnoses Diagnosis Pain Generalized pain documented in this encounter Care Teams Neck Band Operator Relationship Specialty Start Date End Date Alphonso Murphy MD PCP - General Family Medicine 02/19/[address] [place] [address] documented as of this encounter
--- OUTSIDE RECORDS SUMMARY | 2022-04-21 10:54 | XMS_ITS | Encounter Summary ---
:1955 Author Organization [facility] [place] [address] Care Team Providers Name Role Phone Alphonso Murphy MD Primary Care Provider [phone] Reason for Referral Diagnostic Test (Routine) - Closed Specialty Diagnoses / Procedures Referred By Contact Refer red To Contact Radiology Diagnoses Chest pain, unspecified type Alphonso Murphy MD [facility] Rad Ct Scan Procedures CT Chest Pulmonary Embolism With Contrast [address] [place], [place] [address] [place] [address] Phone: Referral ID Status Reason Start Date Expiration Date Visits V isits Requested Authorized [id number] Closed Specialty 02/17/2016 02/16/2017 1 1 Service Requested Reason for Visit Diagnostic Test (Routine) - Closed Specialty Diagnoses / Procedures Referred By Contact Refer red To Contact Radiology Diagnoses Chest pain, unspecified type Alphonso Murphy MD [facility] Rad Ct Scan Procedures CT Chest Pulmonary Embolism With Contrast [address] [place] [address] [place] [address] Phone: Referral ID Status Reason Start Date Expiration Date Visits V isits Requested Authorized [id number] Closed Specialty 02/17/2016 02/16/2017 1 1 Service Requested Encounter Details Date Type Department Care Team Description 02/19/[address] Scan [place] [facility] Alphonso Murphy [facility] MD Selene unspecified type Drive [address] [place] [place] [address] [address] [place], [place] [phone] [address] Social History Tobacco Use Types Packs/Day Years [...] Routine documented in this encounter Care Teams Military Science Teacher Relationship Specialty Start Date End Date Alphonso Murphy MD PCP - General Family Medicine 02/19/[address] [place] [address] documented as of this encounter
--- OUTSIDE RECORDS SUMMARY | 2022-04-21 10:54 | XMS_ITS | Encounter Summary ---
:1955 Author Organization [facility] [place] [address] Care Team Providers Name Role Phone Sunitha Trotter MD Primary Care Provider Reason for Visit Reason Comments Advice Only right chest wall pain after fall Encounter Details Date Type Department Care Team Description 10/08/2014 Office Visit Hematology and CLINIC, DR VICTOR Pleural ef fusion on right; Oncology at [facility] Shahram Sheehan, DO [address] [place] [address] Morbid obesity; [facility] Sunny Mota MD [facility] [place] [address] [place] [address] Social History Tobacco Use Types [...] 10/08/2014 Service: Thoracic Surgery Place of Service: [address] [place] [address] Attending: Dr. Sunny Mota Patient Name: Radha [...] resolved by the CXR on 09/17/2014. Her channel lip wetter, Dr. Lozano, referred her to Thoracic surgery [...] thoracic surgery for this issue. Signed: Keron Gu MD 10/08/2014 3:13 PM CC: [address] / [facility] [address] REF: Padmini Lozano MD [facility] [place] [address] I have seen the patient and reviewed [...] pain documented in this encounter Care Teams Oyster Grader Relationship Specialty Start Date End Date Sunitha Trotter MD PCP - General 07/07/10 02/18/16 [address] [place], [place] [address] documented as of this encounter
--- OUTSIDE RECORDS SUMMARY | 2022-04-21 10:54 | XMS_ITS | Encounter Summary ---
:1955 Author Organization [facility] [place] [address] Care Team Providers Name Role Phone Sunitha Milligan MD Primary Care Provider Encounter Details Date Type Department Care Team Description 09/20/2014 Hospital Encounter XRay at [facility] Pleural effusion [address] [place] [address] [place] [phone] Social History Tobacco Use Types Packs/Day [...] effusion documented in this encounter Care Teams Revit Drafter Relationship Specialty Start Date End Date Sunitha Milligan MD PCP - General 07/07/10 02/18/[address] [place] [address] documented as of this encounter
--- OUTSIDE RECORDS SUMMARY | 2022-04-21 10:54 | XMS_ITS | Encounter Summary ---
:1955 Author Organization [facility] [place] [address] Care Team Providers Name Role Phone Sunitha Trotter MD Primary Care Provider Encounter Details Date Type Department Care Team Description 03/24/2014 Orders Only Radiology at [facility] Juan Hanks Pleural effusion on [facility] MD fontenot (Primary Dx) [place] [address] RADIOLOGY DEPT. [place] [id number] Social History Tobacco Use Types Packs/Day Years [...] recent fall. Attempted pleural drain placement at [facility] but unsuccessful due to body habitus Request from [facility] hospitalist for right pleural drain. Past Medical/Surgical [...] BUN 17 12/18/2013 CREATININE 0.66* 12/18/2013 Imagin03/22/14 [facility] CT Physical Exam: Pending (to be performed in angio the day of procedure) ASA: Pending (to be assessed in angio the day of procedure) Mallampati Class: Pending (to be assessed in angio the day of procedure) Assessment: 58 y.o. female recent fall presented to [facility] with tachypnea with new right pleural fluid (suspected blood) on OSH CT (03/22/14) . Attempted pleural drain placement at [facility] but unsuccessful due to body habitus Plan: US-guided right pleural drain then transport back to [facility] Labs to be performed day of procedure: none Medication to STOP: none Sedation: Moderate sedation per IR RN protocols Prophylactic antibiotic: none Additional medications for procedure: none Planned access site: right thorax Position: left side down Consent: Pending - Juan Hanks MD (Pager #[phone]) 03/24/2014 documented in this encounter Plan of Treatment Not on filedocumented as of this encounter Visit Diagnoses Diagnosis Pleural effusion on right - Primary Unspecified pleural effusion documented in this encounter Care Teams Cooker Chip Relationship Specialty Start Date End Date Sunitha Trotter MD PCP - General 07/07/10 02/18/[address] [place] [address] documented as of this encounter
--- OUTSIDE RECORDS SUMMARY | 2022-04-21 10:54 | XMS_ITS | Encounter Summary ---
:1955 Author Organization [facility] [place] [address] Care Team Providers Name Role Phone Sunitha Milligan MD Primary Care Provider Encounter Details Date Type Department Care Team Description 08/01/2014 Telephone Pulmonology at [facility] Padmini Lozano MD [facility]3] [place] [address] PULMONARY MEDICINE [phone] [place], [place] [address] (Wo rk) Social History Tobacco [...] effusion documented in this encounter Care Teams Major Gifts Director Relationship Specialty Start Date End Date Sunitha Milligan MD PCP - General 07/07/10 02/18/16 [address] [place] [address] documented as of this encounter
--- OUTSIDE RECORDS SUMMARY | 2022-04-21 10:54 | XMS_ITS | Encounter Summary ---
:1955 Author Organization [facility] Address [facility] [address] [facility] [address] [place] [address] Care Team Providers Name Role Phone Sunitha Milligan MD Primary Care Provider Encounter Details Date Type Department Care Team Description 08/24/[address] at [facility], DR KAYLEIGH [facility] Sunitha aMrtinez MD [address] [place], [place] [address] [place] [address] Social History Tobacco Use Types Packs/Day [...] Diagnosis Comme nts CT CHEST WO Routine 08/24/2012 6:20 PM Results f or this CONTRAST (GENERIC) EST procedure are in the results section. documented in this encounter Results CT chest WO contrast (08/24/2012 6:20 PM EST) Anatomical Region Laterality Modality Chest Computed Tomography Specimen (Source) Anatomical Collection Method Collection Time Re ceived Time Location / / Volume Laterality 08/24/2012 6:20 PM EST Narrative 08/25/2012 4:[address] Chest Without Contrast Clinical History F/U NODULE SEE ON CXR Comparison None ?? Technique CT images were acquired of the chest wit hout the use of intravenous contrast. Findings There is a 4 mm pleural-based nodule in the right lower lobe. ??No additional pulmonary nodule is identified. ??The laurence ngs are otherwise clear. ??No mediastinal, hilar, or axillary lymphade nopathy. ??No pleural or pericardial effusion. ??The thyroid is diffusely enl arged with multiple nodules, some of which are calcified, consistent with a g oiter. ??Mild coronary artery calcification and atherosclerosis is pre sent. There is a 1.6 cm nodule within the upper right breast. ?? The visualized portions of the spleen, k idneys, adrenal glands, liver, and gallbladder are normal on this noncontra st CT scan. ??There is diffuse fatty infiltration of the pancreas. ??No lytic or blastic osseous lesion. Impression No pulmonary nodule is identified within the right upper lobe. 4 mm pleural based right lower lobe pulm onary nodule. ?? This is likely a benign intrapulmonary lymph node and if the pat ient is not a smoker, no followup is required per Fleischner Society guidelin es. Indeterminate 1.6 cm nodular opacity wit hin the upper right breast, possibly asymmetric breast parenchyma. Correlatio n with mammogram is recommended. Film and interpretation reviewed by the attending Procedure Note Tosha Covarrubias MD - 08/25/2012Formatt ing of this note might be different from the original. Examination CT Chest Without Contrast Clinical History F/U NODULE SEE ON CXR Comparison None Technique CT images were acquired of the chest wit hout the use of intravenous contrast. Findings There is a 4 mm pleural-based nodule in the right lower lobe. No additional pulmonary nodule is identified. The lung s are otherwise clear. No mediastinal, hilar, or axillary lymphade nopathy. No pleural or pericardial effusion. The thyroid is diffusely enlar ged with multiple nodules, some of which are calcified, consistent with a g oiter. Mild coronary artery calcification and atherosclerosis is pre sent. There is a 1.6 cm nodule within the upper right breast. The visualized portions of the spleen, k idneys, adrenal glands, liver, and gallbladder are normal on this noncontra st CT scan. There is diffuse fatty infiltration of the pancreas. No lytic o r blastic osseous lesion. Impression No pulmonary nodule is identified within the right upper lobe. 4 mm pleural based right lower lobe pulm onary nodule. This is likely a benign intrapulmonary lymph node and if the pat ient is not a smoker, no followup is required per Fleischner Society guidelin es. Indeterminate 1.6 cm nodular opacity wit hin the upper right breast, possibly asymmetric breast parenchyma. Correlatio n with mammogram is recommended. Film and interpretation reviewed by the attending Sunitha Milligan MD IMG CT ORDERABLES documented in this encounter Visit Diagnoses Not on filedocumented in this encounter Care Teams Lan/Wan Engineer Relationship Specialty Start Date End Date Sunitha Milligan MD PCP - General 07/07/10 02/18/16 [address] [place] [address] documented as of this encounter
--- OUTSIDE RECORDS SUMMARY | 2022-04-21 10:54 | XMS_ITS | Encounter Summary ---
:1955 [address] [facility] [place] [address] Care Team Providers Name Role Phone Alphonso Murphy MD Primary Care Provider [phone] Reason for Visit Auth/Cert Specialty Diagnoses / Procedures Referred By Contact Refer red To Contact Diagnoses JODY (acute kidney injury) ACUTE RENAL FAILURE Referral ID Status Reason Start Date Expiration Date Visits Requ ested Visits Authorized [id number] 1 1 Encounter Details Date Type Department Care Team Description 01/16/2017 - [place] [address] Krunal Damico MD [facility] [address] Hyperkalemia; 01/21/2017 Encounter [facility] Alvaro Law MD [facility] [place] [address] Hypotension, unspecified hypotension typ e; [facility] [place] [address] Obesity, unspecified obesity severity, u nspecified obesity type; [facility] Huan Morris MD [facility] [place] [address] JODY (acute kidney injury); Nakul Haley MD [facility] [place] [address] Pleural effusion on right; [place], [place] Musculoskeletal chest pain [phone] Social History Tobacco Use Types Packs/Day Years [...] Magana Young Patient Age: 61 y.o. Language: Turkmen Race: White Ethnicity: Not nor Admit date: [...] please contact your inpatient physician through the [facility] Commanding Officer Homicide Squad . Issues after hours and on weekends [...] recent admission who presents in transfer from [facility] with new renal failure. ?? She was initially seen over 2 weeks ago at [facility] and reportedly admitted for SOB for about [...] present to the ER. ?? At the [facility] ER, labs were repeated with Cr 5.9 [...] doctor's office and seek medical attention immediately. Non-[facility] Follow-up Appointments: ?? PCP: Dr. Murphy, TuesdayJanuary 25 @ 11:20AM [facility] Follow-up Appointments: No future appointments. Your Inpatient Medical Team at [facility]: MD Imani Diez, [facility] For questions regarding issues relating to your hospitalization on the Hospital Medicine Service, please contact your inpatient physician through the [facility] Commanding Officer Homicide Squad [phone]. Issues after hours and on weekends will be handled by the Hospitalist staff on-call. Your Primary Care Provider Alphonso Murphy MD [phone] General Instructions None Future Appointments and Orders Future Orders Complete By Expires Referral to Home Health - at DISCHARGE [[id number] CPT(R)] As directed Process Instructions: Scheduling Instructions: Comments: DOCUMENTATION FOR VNA SERVICES (INCLUDING THOSE PATIENTS WITH MEDICARE COVERAGE REQUIRING HOME VNA SERVICES AND/OR HOSPICE SERVICES) PATIENT'S LOCATION: Cyn Prado [address] [place] [phone] (home) Cell: Telephone Information: Power Saw Operator's Name: self In discussion with the attending physician, it is certified that this patient is under their care and that they, or a Nurse Practitioner,Clinical Nurse specialist or Physician Medical Management Trainer who is working directly with them, had [...] for managing ADL's. HOME HEALTH CARE AGENCY: [facility] PHONE: [phone] FAX: [phone] Start of care: 24-48 hours post discharge [...] Alphonso Murphy MD [address] / [place] [address] All [facility] agencies which cover the area of patient's residence have been reviewed, either verbally or in writing, and patient/family have chosen the home health care agency noted Questions: Agency name and contact information: [facility] Patient location post discharge: home What services [...] doctor's office and seek medical attention immediately. Non-[facility] Follow-up Appointments: ?? PCP: Dr. Murphy, TuesdayJanuary 25 @ 11:20AM [facility] Follow-up Appointments: No future appointments. Your Inpatient Medical Team at [facility]: MD Imani Diez, [facility] For questions regarding issues relating to your hospitalization on the Hospital Medicine Service, please contact your inpatient physician through the [facility] Commanding Officer Homicide Squad [phone]. Issues after hours and on weekends will be handled by the Hospitalist staff on-call. Your Primary Care Provider Alphonso Murphy MD [phone] documented in this encounter Medications at Time [...] by Each Nare 0 11/1305/21/2019 50 mcg/actuation [place], route daily. Suspension gabapentin (NEURONTIN) Take 200 [...] AVS reviewedwith nurse. Questions answered. Ambulated to [facility] with family. Alvaro Law MD - 01/21/2017 [...] spent >30 minutes (Day of Discharge Code 85603) involved in the final examination of the [...] Tomás Riddle PTA Inpatient Rehab Services Pager: [phone] Grecia Wang RN - 01/21/2017 11:37 AM EDT The patient/phlebotomy services representative has been provided a list of Home Health Agencies/DME vendors which serve their preferred geographic area. A letter describing our affiliations was reviewed with them and theywere educated about their right to choose where referrals are placed. Patient requests referral to [facility] Expected date of discharge: today. Referral routed to the Principal Product Manager for matching with agency/vendor and to provide any required information. Grecia Leiva RN - 01/21/2017 11:28 AM EDT Office of Care Management (OCM)-Linux Consultant discharge planning Linux ConsultantGrecia Service:Ani Reviewed medical record and in rounds with,Charge/Resource RN, STAFFING ADMINISTRATOR, and CM, PT and Hospitalist. Cyn Prado [...] Nurse updated. Resource Specialists updated. Grecia Wang Linux Consultant, Care Management [email or web address] phone: [phone] fax: [phone] Alvaro Law MD - 01/20/2017 6:08 PM [...] fellows interpretation Confirmed by fellow MD Geovanni, [facility] ([id number]) on 01/17/2017 11:15:43 AM Confirmed by MD Levy, Madan ([id number]) on 01/17/2017 5:42:15 PM QTCCALC 481 VASCULAR: [...] 1-2 days Team Pager(MD Coverage 07/03): # [phone] PCP: Alphonso Murphy MD [phone] Attestation: IPI Certification I certify that I am a D-H credentialed attending provider with admitting privileges and that the patient meets or has met medical necessity to require an inpatient IPI level of care meeting a minimum of two midnights or is on the [facility] inpatient only procedure list (status C) due [...] appropriate/available. Tomás Riddle PTA Inpatient Rehab Services Pager:[phone] Liz Guillory OT - 01/20/2017 2:30 PM [...] OT needs present. Liz Guillory, OTR/L Pager #[phone] Martha Ontiveros RN - 01/19/2017 6:15 PM [...] interpretation Confirmed by fellow MD Geovanni, [facility] ([id number]) on 01/17/2017 11:15:43 AM Confirmed by MD Levy, Madan ([id number]) on 01/17/2017 5:42:15 PM QTCCALC 481 VASCULAR: [...] 1-2 days Team Pager( Coverage 07/03): # [phone] PCP: Alphonso Murphy MD [phone] Attestation: IPI Certification I certify that I am a D-H credentialed attending provider with admitting privileges and that the patient meets or has met medical necessity to require an inpatient IPI level of care meeting a minimum of two midnights or is on the [facility] inpatient only procedure list (status C) due [...] AM EDT Clinical Nutrition Initial Evaluation Cyn rPado is a 61 y.o. female Nutrition Plan/Recommendations: [...] CREATED BY INTERFACE TOTAL KNEE ARTHROPLASTY / LEFT/AAMN LPS Procedure Date: 03/29/2005 ??? CREATED BY [...] was very re ceptive to this. This ticket writer provided written and verbal education on general healthful nutrition, cooking tips for weight management, and portion sizes and examples of food groups. This ticket writer explained how her meals should be compromised in regards to portion sizes of specific food groups, and encouraged snacks that were higher in protein. Pt had no additional questions or concerns at this time, contact information provided. Nutrition to follow. CANDIDO Flor Pager [phone] Сергей Abreu RCP - 01/19/2017 12:07 AM EDT FIBER OPTIC TECHNICIAN NIV Note NIV Settings: NIV Mode: BiPAP [...] w/ Dr. Keely Whaley, Nephrology Fellow Pager [phone] Renal Attending: The patient was examined together [...] 01/18/17 0800 Gross per 24 hour Intake 53612 ml Output 95048 ml Net -460 ml Infusions: Norepi 6 [...] w/ Dr. Keely Whaley, Nephrology Fellow Pager -[phone] Renal Attending: The patient was examined together [...] Marcos E - 01/17/2017 10:01 AM EDT Radio Tower Technician Encounter Note Patient Name: Cyn Prado : [id number] MR#: [id number] Admit Date: 01/16/2017 12:35 AM Hospital Day 1 day Narrative: Cyn was by herself in the room when I entered. She said she had had family visiting yesterday. Merariisseemed tired but in good spirits. She was happy to talk with a abrasive wheel molder. Our conversation centered around her medical problems and her love of her family. It was clear that Cyn' children and grandchildren were a major source of hillary and meaning for her. She is happy to have one of her sons living at home with her. Assessment: Cyn identified herself as spiritual but not advent. She said she had grown up watching [...] sleep apnea who received recent care at [facility] for dyspnea and Pulmonary Emboli (Jay WYLIE). Transferred from [facility] for acute onset renal failure. Transferred within [...] 22.1, BE -3 Per patient request and COFFEE URN ATTENDANT Order Patient placed on Home unit at 2327- Home settings/unit and home O2 01/16/17 2327 Non Invasive Ventilation Data NIV Mode BiPAP NIV Settings O2 Bleed In (LPM) 5 L/min (home flow) IPAP (cmH20) 23 (home settings) EPAP (cmH20) 19 (home settings) NIV Interface Comment Home full face mask Roslyn Obrien RN - 01/16/2017 6:37 AM EDT Patient Name:Cyn Prado [facility] Telemetry Note Diagnosis r/t telemetry: Hyperkalemia Subjective: [...] PE, diastolic heart failure who transferred from [facility], now transferring to the ICU with renal failure, AMS and hypotension. HPI: Cyn Prado is a 61 y.o. female with the above pmhx who was recently hospitalized at [facility] for 3 days due to a newly diagnosed pulmonary embolism and COPD/diastolic heart failure exacerbation. Patient was discharged on enoxaparin on 01/13 with a rising Cr. Once at home she continued to be not feeling well, have malaise and also developed a mild confusion. On 01/15 she presented back to the ED @ [facility] with hemoptysis and hyperkalemia in the setting of a JODY,Cr >5 and BUN >120. [facility] hospitalitis service was consulted for further care [...] PE, diastolic heart failure who transferred from [facility] to the hospitalitis service with renal failure, [...] 17, 2017 Critical Care Green Team (pager [phone]) Dr. Sloan is the attending of record [...] recent admission who presents in transfer from [facility] with new renal failure. She was initially seen over 2 weeks ago at [facility] and reportedly admitted for SOB for about [...] to present to the ER. At the [facility] ER, labs were repeated with Cr 5.9 [...] though limited by habitus. Pertinent Labs From [facility]: 12.9 14.7 H/H 264 124 86 132 [...] PE on enoxaparin with recent 2-week admissionto [facility] who presents with new renal failure. # [...] by lisinopril. Still waiting for records from [facility] which should help in determining if this is the cause. A bedside US at the OSH did not show hydro though was technically limited d/t her habitus. It sounds like she is still making some urine though it is unclear how much so this will be monitored closely since she may easily go the wrong direction and potentially require dialysis. ?? F/u [facility] records ?? Start IVF ?? Continue schmitt, [...] accumulated enoxaparin ?? PCP: Alphonso Murphy MD [phone] Nakul Oneal Garland Pager #[phone] Hospital Medicine IPI Certification I certify that I am a D-H credentialed attending provider with admitting privileges and that the patient meets or has met medical necessity to require an inpatient IPI level of care meeting a minimum of two midnights or is on the [facility] inpatient only procedure list (status C) due [...] yes Patient location at time of insertion: [address] Procedure Comments: Isidoro De Leon MD [...] to the planned procedure. Hand Hygiene: The bit tapper did perform hand hygiene prior to arterial [...] recent admission who presents in transfer from [facility] with new renal failure. Precautions/Restrictions: fall Precautions [...] Anticipated Discharge Disposition: home with assist Pager: [phone] LIZ GUILLORY OT 01/21/2017 Occupational Therapy Rehabilitation [...] AM EDT Inpatient Medicine Progress Note HD4 JODY, ?UTI Patient ID: Cyn Prado is a [...] 01/17/17 1307 01/16/17 2119 PHART 7.41 7.38 DSF9BAR 26* 38 PO2ART 92 78* [id number] 16.2* 22.1 Microbiology: 01/16 BCx: NGTD 01/16 [...] status pending clinical course Imani Roman Edin [facility] M3, Internal Medicine Pager - [phone] Team Pager [phone] 01/20/2017 Plan of Care - Olga Anna RN - 01/20/2017 2:32 AM EDT Problem: Skin Integrity Impairment, Risk/Actual (Adult) Goal: Skin Integrity/Wound Healing Patient will demonstrate the desired outcomes by discharge/transition of care. Outcome: Ongoing (Interventions Implemented as Appropriate) 01/19/17 3172 Skin Integrity Impairment, Risk/Actual (Adult) Skin Integrity/Wound [...] recent admission who presents in transfer from [facility] with new renal failure. Staff communication/Mobility Recommendations: ?? Pt. To ambulate with supervision and RW Precautions/Restrictions: fall Anticipated Physical Therapy Frequency: 3-5 times/wk Anticipated Discharge Disposition: home Pager: [phone] RADHA LOCKETT, PT 01/20/2017 Inpatient Physical Therapy Problem: Acute Rehab Services Goal & Intervention Plan Goal: Bed Mobility Goal Stand Alone Therapy Goal Outcome: Ongoing (Interventions Implemented as Appropriate) 01/18/17 1556 Bed Mobility Goal Bed Mobility Goal, Date Established 01/18/17 Bed Mobility Goal, Time to Achieve 2 wks Bed Mobility Goal, Activity Type all bed mobility activities Bed Mobility Goal, Nobles Level independent Bed Mobility Goal, Outcome Achieved goal ongoing Goal: Gait Training Goal Stand Alone Therapy Goal Outcome: Ongoing (Interventions Implemented as Appropriate) 01/18/17 1556 Gait Training Goal Gait Training Goal, Date Established 01/18/17 Gait Training Goal, Time to Achieve 2 wks Gait Training Goal, Nobles Level independent Gait Training Goal, Assist Device [...] 2 wks Transfer Training Goal, Activity Type xmu-sf-gopwa/yuzaz-ku-sac;qeo-ll-ziarm/zlalj-hi-ous Transfer Train Goal, Nobles Level independent Transfer Training Goal, Assist Device [...] recent admission who presents in transfer from [facility] with new renal failure. Staff communication/Mobility Recommendations: ?? Pt. To mobilize OOB with RW Precautions/Restrictions: fall Anticipated Physical Therapy Frequency: 3-5 times/wk Anticipated Discharge Disposition: home with home health Pager: [phone] RADHA LOCKETT, PT 01/19/2017 Inpatient Physical Therapy Problem: Acute Rehab Services Goal & Intervention Plan Goal: Bed Mobility Goal Stand Alone Therapy Goal Outcome: Ongoing (Interventions Implemented as Appropriate) 01/18/17 1556 Bed Mobility Goal Bed Mobility Goal, Date Established 01/18/17 Bed Mobility Goal, Time to Achieve 2 wks Bed Mobility Goal, Activity Type all bed mobility activities Bed Mobility Goal, Nobles Level independent Bed Mobility Goal, Outcome Achieved goal ongoing Goal: Gait Training Goal Stand Alone Therapy Goal Outcome: Ongoing (Interventions Implemented as Appropriate) 01/18/17 1556 Gait Training Goal Gait Training Goal, Date Established 01/18/17 Gait Training Goal, Time to Achieve 2 wks Gait Training Goal, Nobles Level independent Gait Training Goal, Assist Device [...] 2 wks Transfer Training Goal, Activity Type hkc-he-qpnzi/fcfjt-op-cft;bph-gv-mmyrx/ntdak-zx-vjh Transfer Train Goal, Nobles Level independent Transfer Training Goal, Assist Device [...] SUMMARY: Pt alert and oriented x 4. MCGRATH. Remains on Levo gtt and vaso gtt [...] above pmhx who was recently hospitalized at [facility] for 3 days due to a newly diagnosed pulmonary embolism and COPD/diastolic heart failure exacerbation. Patient was discharged on enoxaparin on 01/13 with a rising Cr. Once at home she continued to be not feeling well, have malaise and also developed a mild confusion. On 01/15 she presented back to the ED @ [facility] with hemoptysis and hyperkalemia in the setting of a JODY,Cr >5 and BUN >120. [facility] hospitalitis service was consulted for further care [...] Barrios would be surrogate decision maker per [facility] decision making law. Any patient receiving care at [facility] must abide by [place] law. The hierarchy for surrogate decision making [...] (i) The agent with financial power of attorney general or a conservator appointed in accordance with RSA 464-A. (j) The guardian of the patient???s estate. Current Coping/Education/Information Needs: no need for a family meeting or an hammer shop supervisor at this time. Current Functional Ability: pt [...] Medicare A, B, & D Secondary Insurance: [place] Medicaid. Prescription Coverage: yes, part D Preferred Pharmacy: [facility] in [place], [place]. Other: none. Primary Care Provider: Alphonso Murphy MD [phone] Patient/Caregiver Goals of Treatment: plan being determined. Pt currently remains on Levo @ 6 mcg/min. Vasopressin was stopped and DC'd as of 10:00 this morning. Potential Needs for Transition of Care: Rehab/SNF: to be determined but likely will require a stay in rehab after DC. [facility] though she does not really want to go there again. She'd rather go home though. Based on discussions with the multi-disciplinary healthcare team, the patient would benefit from SNFlevel of care at discharge. ?? I have met with the patient/phlebotomy services representative to discuss discharge planning needs. I have provided the [facility], Office of Care Management letter from the Volunteer Coordinator pertaining to rehab referrals. I have also provided a letter describing our affiliations within the [facility] and educated them about their right to choose where referrals are placed. ?? I reviewed the different levels of rehab including SNF, swing, acute and LTAC with the patient/phlebotomy services representative. ?? The patient/phlebotomy services representative has been provided a list of facilities within their preferred geographic area. ?? I have requested that the patient/phlebotomy services representative provide at least three choices for referral. ?? The patient/phlebotomy services representative [facility] [address] [place] [address] ?? Expected date of discharge: to be determined. Note routed to Principal Product Manager who will communicate referrals to facilities and provide any required information. Home Health: to be determined. Would like [facility] if DC'd with home health. DME: [...] and assist with transition of care planning. Linux Consultant Omar Zamarripa RN, BSN Pager #[phone] Plan of Care - Azucena Jennings RN [...] w/ Dr. Keely Isabel Nephrology Fellow Pager -[phone] Renal Attending: The patient was examined together [...] Name Priority Date/Time Associated Diagnosis Comme nts LINING BRUSHER SCAN 01/22/2017 12:00 Res ults for this [...] STAT 01/16/2017 9:45 Results f or this ([facility]) PM EDT procedure are i n the [...] documented in this encounter Results SCAN DOC: LINING BRUSHER (01/22/2017 12:00 AM EDT) Narrative 01/22/2017 12:00 AM EDT This result has an attachment that is no t available. Ordered by an unspecified provider. Scanning Provider MEDIA MGR SCAN EXT ORDR/RSLT Green Tube HOLD (01/21/2017 8:31 AM EDT) P athologist Signature Green Hold Sample in [facility]. [facility] Specimen Anatomical Collection Method Collection Time Receive d Time (Source) Location / / Volume Laterality Blood specimen Venous Draw / 01/21/2017 8:31 AM 2016 8:44 (specimen) Unknown EDT AM EDT Alvaro Law MD CHEMISTRY ORDERABLES Performing Organization Address City/State/[place] [address] (ABNORMAL) Differential, Automated (01/21/2017 8:31 AM EDT) Patholo gist Method Time Signature Neutrophils % 72.5 % [facility] Neutr Abs (ANC) 9.62 (H) 1.70 - [facility] 6.10 [facility] x10(3)/[facility] L LABORATORY Lymphocytes % 16.3 % [facility] Lymphocytes Abs 2.2 0.9 - 3.2 [facility] x10(3)/[facility] LABORATORY Monocytes % 6.6 % [facility] Monocyte Abs 0.9 0.3 - 0.9 [facility] x10(3)/[facility] LABORATORY Eosinophils % 2.9 % [facility] Eosinophils Abs 0.4 0.0 - 0.4 [facility] x10(3)/[facility] LABORATORY Basophils % 0.2 % [facility] Basophils Abs 0.0 0.0 - 0.1 [facility] x10(3)/[facility] LABORATORY Immature Gran % 1.50 % [facility] Comment: Immature granulocytes(IG's)percentage an d absolute count will include metamyelocytes, myelocytes, and promyelo cytes. Blood smears from CBCs yielding IG's will be scanned manually for concor dance. If this scan disagrees with the automated IG or if promyelocytes are not ed, a manual differential will be performed. Surekha Gran Abs 0.20 (H) 0.00 - 0.04 x10(3)/[facility] LABORATORY Specimen Anatomical Collection Method Collection Time Receive d Time (Source) Location / / Volume Laterality Blood specimen 01/21/2017 8:31 AM 017 8:44 (specimen) EDT AM EDT Resulting Agency Comment Spec In Lab Alvaro Law MD HEMATOLOGY ORDERABLES Performing Organization Address City/State/[place] [address] (ABNORMAL) Hemogram (01/21/2017 8:31 AM EDT) Analysis Performed At Patho logist Time Signature WBC 13.3 (H) 4.0 - 9.5 [facility] x10(3)/[facility] LABORATORY RBC 3.46 (L) 4.[address] [facility] 5.21 [facility] x10(6)/[facility] LABORATORY Hemoglobin 10.1 (L) 11.7 - [facility] 15.5 gm/dL [facility] LABORATORY Hematocrit 30.6 (L) 35.[address] [facility] 45.8 % [facility] LABORATORY MCV 88.4 82.6 - [place] 94.4 [facility] LABORATORY MCH 29.2 27.1 - [place] 32.0 pg [facility] LABORATORY MCHC 33.0 31.7 - [place] 35.0 gm/dL [facility] LABORATORY Platelets 240 145 - 357 [place] x10(3)/[facility] LABORATORY RDWSD 46.1 (H) 37.0 - [place] 46.0 [facility] LABORATORY RDWCV 14.3 (H) 11.5 - [place] 14.1 % [facility] LABORATORY MPV 10.7 7.6 - 12.9 [place] [facility] LABORATORY nRBC % Auto 0.0 % [facility] LABORATORY nRBC Abs Auto 0.000 0.000 - [place] 0.000 [facility] x10(3)/[facility] LABORATORY Specimen Anatomical Collection Method Collection Time Receive d Time (Source) Location / / Volume Laterality Blood specimen 01/21/2017 8:31 AM 017 8:44 (specimen) EDT AM EDT Resulting Agency Comment Spec In Lab Alvaro Law MD HEMATOLOGY ORDERABLES Performing Organization Address City/State/ZIP Code Phon e Number [address] Phosphorus (01/21/2017 5:07 AM EDT) P athologist Signature Phosphorus 3.2 2.5 - 4.5 [place] mg/dL [facility] LABORATORY Comment: result rechecked-AFP Specimen Anatomical Collection Method Collection Time Receive d Time (Source) Location / / Volume Laterality Blood specimen 01/21/2017 5:07 AM 017 5:25 (specimen) EDT AM EDT Resulting Agency Comment Spec In Lab Alvaro Law MD CHEMISTRY ORDERABLES Performing Organization Address City/State/ZIP Code Phon e Number [address] Magnesium (01/21/2017 5:07 AM EDT) P athologist Signature Magnesium 0.74 0.69 - 1.07 [place] mmol/L [facility] LABORATORY Specimen Anatomical Collection Method Collection Time Receive d Time (Source) Location / / Volume Laterality Blood specimen 01/21/2017 5:07 AM 017 5:25 (specimen) EDT AM EDT Resulting Agency Comment Spec In Lab Alvaro Law MD CHEMISTRY ORDERABLES Performing Organization Address City/State/ZIP Code Phon e Number [facility] [place] [address] (ABNORMAL) Basic Metabolic Panel (non-fasting) (01/21/2017 5:07 AM EDT) athologist Signature Glucose Lvl 92 65 - 199 [facility] mg/dL [facility] LABORATORY Comment: Diabetes: >=200 mg/dL plus symp toms BUN 10 8 - 18 mg/dL [facility] LABORATORY Creatinine 0.66 (L) 0.70 - 1.20 mg/dL [facility] LABORATORY Comment: Please note that the pediatric reference intervals supplied above were not validated at [facility]. Results from pediatri c patients should be interpreted in conjunction to the patient's age, height and muscle mass. Sodium 138 135 - 145 mmol/L [facility] LABORATORY Potassium 3.8 3.5 - 5.0 mmol/L [facility] LABORATORY Comment: Please note: ??Patients with WBC >100,00 0 may have falsely elevated Potassium levels. ??For accurate Potassium quantif ication in these patients send serum separator tube (gold top) for subsequent determinations. ??Contact the Clinical Chemistry Laboratory if there are any qu estions. Chloride 96 (L) 98 - 107 mmol/L [facility] LABORATORY CO2 29 22 - 31 mmol/L [facility] LABORATORY Anion Gap 13 5 - 15 mmol/L [facility] LABORATORY Calcium 8.5 8.5 - 10.5 mg/dL [facility] LABORATORY Estimated GFR >60 >=60 [facility] LABORATORY Comment: This estimated GFR (eGFR) value [...] the following links into your internet browser. [email or web address] Specimen Anatomical Collection Method Collection Time Receive d Time (Source) Location / / Volume Laterality Blood specimen 01/21/2017 5:07 AM 017 5:25 (specimen) EDT AM EDT Resulting Agency Comment Spec In Lab Alvaro Law MD CHEMISTRY ORDERABLES Performing Organization Address City/State/ZIP Code Phon e Number [place] [id number]OSP[address] LAB[address]ATORY Drive (ABNORMAL) Differential, Automated (01/20/2017 11:15 AM EDT) [facility] Method Time Signature Neutrophils % 71.0 % [facility] LABORATORY Neutr Abs (ANC) 10.20 (H) 1.70 - [facility] 6.10 [facility] x10(3)/[facility] LABORATORY Lymphocytes % 16.4 % [facility] LABORATORY Lymphocytes Abs 2.4 0.9 - 3.2 [facility] x10(3)/[facility] LABORATORY Monocytes % 9.1 % [facility] LABORATORY Monocyte Abs 1.3 (H) 0.3 - 0.9 [facility] x10(3)/[facility] LABORATORY Eosinophils % 2.4 % [facility] LABORATORY Eosinophils Abs 0.3 0.0 - 0.4 [facility] x10(3)/[facility] LABORATORY Basophils % 0.2 % [facility] LABORATORY Basophils Abs 0.0 0.0 - 0.1 [facility] x10(3)/[facility] LABORATORY Immature Gran % 0.90 % [facility] LABORATORY Comment: Immature granulocytes(IG's)percentage an d absolute count will include metamyelocytes, myelocytes, and promyelo cytes. Blood smears from CBCs yielding IG's will be scanned manually for concor dance. If this scan disagrees with the automated IG or if promyelocytes are not ed, a manual differential will be performed. Surekha Gran Abs 0.13 (H) 0.00 - 0.04 x10(3)/[facility] LABORATORY Specimen Anatomical Collection Method Collection Time Receive d Time (Source) Location / / Volume Laterality Blood specimen 01/20/2017 11:15 7 (specimen) AM EDT 11:20 AM EDT Resulting Agency Comment Spec In Lab Alvaro Law MD HEMATOLOGY ORDERABLES Performing Organization Address City/State/[place] [address] (ABNORMAL) Hemogram (01/20/2017 11:15 AM EDT) Analysis Performed At Patho logist Time Signature WBC 14.4 (H) 4.0 - 9.5 [facility] x10(3)/[facility] LABORATORY RBC 2.93 (L) 4.00 - [facility] 5.21 [facility] x10(6)/[facility] LABORATORY Hemoglobin 8.7 (L) 11.7 - [facility] 15.5 gm/dL [facility] LABORATORY Hematocrit 25.2 (L) 35.7 - [facility] 45.8 % [facility] LABORATORY MCV 86.0 82.6 - [facility] 94.4 [facility] LABORATORY MCH 29.7 27.1 - [facility] 32.0 pg [facility] LABORATORY MCHC 34.5 31.7 - [facility] 35.0 gm/dL [facility] LABORATORY Platelets 184 145 - 357 [facility] x10(3)/[facility] LABORATORY RDWSD 44.6 37.0 - [facility] JAY 46.0 [facility] LABORATORY RDWCV 14.2 (H) 11.5 - [facility] JAY 14.1 % [facility] LABORATORY MPV 11.2 7.6 - 12.9 [facility] nRBC % Auto 0.0 % [facility] LABORATORY nRBC Abs Auto 0.000 0.000 - [place] 0.000 [facility] x10(3)/[facility] LABORATORY Specimen Anatomical Collection Method Collection Time Receive d Time (Source) Location / / Volume Laterality Blood specimen 01/20/2017 11:15 7 (specimen) AM EDT 11:20 AM EDT Resulting Agency Comment Spec In Lab Alvaro Law MD HEMATOLOGY ORDERABLES Performing Organization Address City/[facility]/ZIP Code Phon e Number [address] (ABNORMAL) Phosphorus (01/20/2017 10:30 AM EDT) athologist Signature Phosphorus 2.4 (L) 2.5 - 4.5 [facility] mg/dL [facility] LABORATORY Specimen Anatomical Collection Method Collection Time Receive d Time (Source) Location / / Volume Laterality Blood specimen 01/20/2017 10:30 7 (specimen) AM EDT 10:43 AM EDT Resulting Agency Comment Spec In Lab Alvaro Law MD CHEMISTRY ORDERABLES Performing Organization Address City/[facility]/ZIP Code Phon e Number [address] (ABNORMAL) Magnesium (01/20/2017 10:30 AM EDT) athologist Signature Magnesium 0.59 (L) 0.69 - 1.07 [facility] mmol/L [facility] LABORATORY Specimen Anatomical Collection Method Collection Time Receive d Time (Source) Location / / Volume Laterality Blood specimen 01/20/2017 10:30 7 (specimen) AM EDT 10:43 AM EDT Resulting Agency Comment Spec In Lab Alvaro Law MD CHEMISTRY ORDERABLES Performing Organization Address City/[facility]/ZIP [facility] [place] [address] (ABNORMAL) Basic Metabolic Panel (non-fasting) (01/20/2017 10:30 AM EDT) athologist Signature Glucose Lvl 106 65 - 199 [facility] mg/dL [facility] LABORATORY Comment: Diabetes: >=200 mg/dL plus symp toms BUN 14 8 - 18 mg/dL [facility] LABORATORY Creatinine 0.76 0.70 - 1.20 mg/dL [facility] LABORATORY Comment: Please note that the pediatric reference intervals supplied above were not validated at [facility]. Results from pediatri c patients should be interpreted in conjunction to the patient's age, height and muscle mass. Sodium 138 135 - 145 mmol/L [facility] LABORATORY Potassium 3.8 3.5 - 5.0 mmol/L [facility] LABORATORY Comment: Please note: ??Patients with WBC >100,00 0 may have falsely elevated Potassium levels. ??For accurate Potassium quantif ication in these patients send serum separator tube (gold top) for subsequent determinations. ??Contact the Clinical Chemistry Laboratory if there are any qu estions. Chloride 99 98 - 107 mmol/L [facility] LABORATORY CO2 28 22 - 31 mmol/L [facility] LABORATORY Anion Gap 11 5 - 15 mmol/L [facility] LABORATORY Calcium 8.4 (L) 8.5 - 10.5 mg/dL [facility] LABORATORY Estimated GFR >60 >=60 [facility] LABORATORY Comment: This estimated GFR (eGFR) value [...] the following links into your internet browser. [email or web address] Specimen Anatomical Collection Method Collection Time Receive d Time (Source) Location / / Volume Laterality Blood specimen 01/20/2017 10:30 7 (specimen) AM EDT 10:43 AM EDT Resulting Agency Comment Spec In Lab Alvaro Law MD CHEMISTRY ORDERABLES Performing Organization Address City/State/[place] [address] POCT Glucose (01/19/2017 9:16 AM EDT) P athologist Signature POC Glucose 134 65 - 199 [facility] mg/dL [facility] LABORATORY Comment: Supplemental ranges: <140 mg/dL before meals <180 mg/dL all other times of the day Specimen Anatomical Collection Method Collection Time Receive d Time (Source) Location / / Volume Laterality Blood specimen 01/19/2017 9:16 AM 017 9:16 (specimen) EDT AM EDT Haun Morris MD POINT OF CARE TEST ORDERABLE S Performing Organization Address City/State/[place] [address] (ABNORMAL) Differential, Automated (01/19/2017 4:00 AM EDT) [facility] Method Time Signature Neutrophils % 66.2 % [facility] LABORATORY Neutr Abs (ANC) 8.22 (H) 1.70 - [facility] 6.10 [facility] x10(3)/[facility] LABORATORY Lymphocytes % 18.5 % [facility] LABORATORY Lymphocytes Abs 2.3 0.9 - 3.2 [facility] x10(3)/[facility] LABORATORY Monocytes % 11.4 % [facility] LABORATORY Monocyte Abs 1.4 (H) 0.3 - 0.9 [facility] x10(3)/[facility] LABORATORY Eosinophils % 2.6 % [facility] LABORATORY Eosinophils Abs 0.3 0.0 - 0.4 [facility] x10(3)/[facility] LABORATORY Basophils % 0.2 % [facility] LABORATORY Basophils Abs 0.0 0.0 - 0.1 [facility] x10(3)/[facility] LABORATORY Immature Gran % 1.10 % [facility] LABORATORY Comment: Immature granulocytes(IG's)percentage an d absolute count will include metamyelocytes, myelocytes, and promyelo cytes. Blood smears from CBCs yielding IG's will be scanned manually for concor dance. If this scan disagrees with the automated IG or if promyelocytes are not ed, a manual differential will be performed. Surekha Gran Abs 0.14 (H) 0.00 - 0.04 x10(3)/[facility] LABORATORY Specimen Anatomical Collection Method Collection Time Receive d Time (Source) Location / / Volume Laterality Blood specimen 01/19/2017 4:00 AM 06/07/2 017 4:19 (specimen) EDT AM EDT Resulting Agency Comment Spec In Lab Ramos Kemp APRN HEMATOLOGY ORDERABLES Performing Organization Address City/[facility]/[place] [address] (ABNORMAL) Hemogram (01/19/2017 4:00 AM EDT) Analysis Performed At Patho logist Time Signature WBC 12.4 (H) 4.0 - 9.5 [facility] x10(3)/[facility] LABORATORY RBC 3.13 (L) 4.00 - [facility] JAY 5.21 [facility] x10(6)/[facility] LABORATORY Hemoglobin 9.1 (L) 11.7 - [facility] JAY 15.5 gm/dL [facility] LABORATORY Hematocrit 26.5 (L) 35.7 - [facility] 45.8 % [facility] LABORATORY MCV 84.7 82.6 - [facility] 94.4 [facility] LABORATORY MCH 29.1 27.1 - [employer] [employer] 32.0 pg [facility] LABORATORY MCHC 34.3 31.7 - [place] 35.0 gm/dL [facility] LABORATORY Platelets 182 145 - 357 [facility] x10(3)/[facility] LABORATORY RDWSD 43.2 37.0 - [place] 46.0 [facility] LABORATORY RDWCV 14.1 11.5 - [facility] JAY 14.1 % [facility] LABORATORY MPV 11.6 7.6 - 12.9 [facility] nRBC % Auto 0.0 % [facility] LABORATORY nRBC Abs Auto 0.000 0.000 - [place] 0.000 [facility] x10(3)/[facility] LABORATORY Specimen Anatomical Collection Method Collection Time Receive d Time (Source) Location / / Volume Laterality Blood specimen 01/19/2017 4:00 AM 017 4:19 (specimen) EDT AM EDT Resulting Agency Comment Spec In Lab Ramos Kemp APRN HEMATOLOGY ORDERABLES Performing Organization Address City/State/[place] [address] POCT Glucose (01/19/2017 4:00 AM EDT) athologist Signature POC Glucose 134 65 - 199 [place] mg/dL [facility] LABORATORY Comment: Supplemental ranges: <140 mg/dL before meals <180 mg/dL all other times of the day Specimen Anatomical Collection Method Collection Time Receive d Time (Source) Location / / Volume Laterality Blood specimen 01/19/2017 4:00 AM 017 4:00 (specimen) EDT AM EDT Huan Morris MD POINT OF CARE TEST ORDERABLE S Performing Organization Address City/[facility]/ZIP Code Phon e Number [address] (ABNORMAL) Phosphorus (01/19/2017 4:00 AM EDT) athologist Signature Phosphorus 1.5 (L) 2.5 - 4.5 [facility] JAY mg/dL [facility] LABORATORY Specimen Anatomical Collection Method Collection Time Receive d Time (Source) Location / / Volume Laterality Blood specimen 01/19/2017 4:00 AM 017 4:19 (specimen) EDT AM EDT Resulting Agency Comment Spec In Lab Alvaro Law MD CHEMISTRY ORDERABLES Performing Organization Address City/State/ZIP Code Phon e Number [address] Magnesium (01/19/2017 4:00 AM EDT) athologist Signature Magnesium 0.70 0.69 - 1.07 [place] mmol/L [facility] LABORATORY Specimen Anatomical Collection Method Collection Time Receive d Time (Source) Location / / Volume Laterality Blood specimen 01/19/2017 4:00 AM 017 4:19 (specimen) EDT AM EDT Resulting Agency Comment Spec In Lab Alvaro Law MD CHEMISTRY ORDERABLES Performing Organization Address City/[facility]/[place] [address] (ABNORMAL) Basic Metabolic Panel (non-fasting) (01/19/2017 4:00 AM EDT) athologist Signature Glucose Lvl 138 65 - 199 [facility] mg/dL [facility] LABORATORY Comment: Diabetes: >=200 mg/dL plus symp toms BUN 24 (H) 8 - 18 mg/dL [facility] LABORATORY Creatinine 1.00 0.70 - 1.20 mg/dL [facility] LABORATORY Comment: Please note that the pediatric reference intervals supplied above were not validated at [facility]. Results from pediatri c patients should be interpreted in conjunction to the patient's age, height and muscle mass. Sodium 135 135 - 145 mmol/L [facility] LABORATORY Potassium 3.7 3.5 - 5.0 mmol/L [facility] LABORATORY Comment: Please note: ??Patients with WBC >100,00 0 may have falsely elevated Potassium levels. ??For accurate Potassium quantif ication in these patients send serum separator tube (gold top) for subsequent determinations. ??Contact the Clinical Chemistry Laboratory if there are any qu estions. Chloride 96 (L) 98 - 107 mmol/L [facility] LABORATORY CO2 27 22 - 31 mmol/L [facility] LABORATORY Anion Gap 12 5 - 15 mmol/L [facility] LABORATORY Calcium 8.2 (L) 8.5 - 10.5 mg/dL [facility] LABORATORY Estimated GFR 57 (L) >=60 [facility] LABORATORY Comment: This estimated GFR (eGFR) value [...] the following links into your internet browser. [email or web address] Specimen Anatomical Collection Method Collection Time Receive d Time (Source) Location / / Volume Laterality Blood specimen 01/19/2017 4:00 AM 017 4:55 (specimen) EDT AM EDT Resulting Agency Comment Spec In Lab Huan Morris MD CHEMISTRY ORDERABLES Performing Organization Address City/State/ZIP Code Phon e Number [address] POCT Glucose (01/19/2017 12:08 AM EDT) athologist Signature POC Glucose 144 65 - 199 [facility] mg/dL [facility] LABORATORY Comment: Supplemental ranges: <140 mg/dL before meals <180 mg/dL all other times of the day Specimen Anatomical Collection Method Collection Time Receive d Time (Source) Location / / Volume Laterality Blood specimen 01/19/2017 12:08 7 (specimen) AM EDT 12:08 AM EDT Huan Morris MD POINT OF CARE TEST ORDERABLE S Performing Organization Address City/State/ZIP Code Phon e Number [address] POCT Glucose (01/18/2017 8:04 PM EDT) athologist Signature POC Glucose 188 65 - 199 [facility] mg/dL [facility] LABORATORY Comment: Supplemental ranges: <140 mg/dL before meals <180 mg/dL all other times of the day Specimen Anatomical Collection Method Collection Time Receive d Time (Source) Location / / Volume Laterality Blood specimen 01/18/2017 8:04 PM 017 8:04 (specimen) EDT PM EDT Huan Morris MD POINT OF CARE TEST ORDERABLE S Performing Organization Address City/State/[place] [address] (ABNORMAL) Basic Metabolic Panel (non-fasting) (01/18/2017 7:25 PM EDT) athologist Signature Glucose Lvl 151 65 - [address] [facility] LABORATORY Comment: Diabetes: >=200 mg/dL plus symp toms BUN 26 (H) 8 - 18 mg/dL [facility] LABORATORY Creatinine 0.92 0.70 - 1.20 mg/dL [facility] LABORATORY Comment: Please note that the pediatric reference intervals supplied above were not validated at [facility]. Results from pediatri c patients should be interpreted in conjunction to the patient's age, height and muscle mass. Sodium 136 135 - 145 mmol/L [facility] LABORATORY Potassium 3.9 3.5 - 5.0 mmol/L [facility] LABORATORY Comment: Please note: ??Patients with WBC >100,00 0 may have falsely elevated Potassium levels. ??For accurate Potassium quantif ication in these patients send serum separator tube (gold top) for subsequent determinations. ??Contact the Clinical Chemistry Laboratory if there are any qu estions. Chloride 99 98 - 107 mmol/L [facility] LABORATORY CO2 25 22 - 31 mmol/L [facility] LABORATORY Anion Gap 12 5 - 15 mmol/L [facility] LABORATORY Calcium 8.3 (L) 8.5 - 10.5 mg/dL [facility] LABORATORY Estimated GFR >60 >=60 [facility] LABORATORY Comment: This estimated GFR (eGFR) value [...] the following links into your internet browser. [email or web address] Specimen Anatomical Collection Method Collection Time Receive d Time (Source) Location / / Volume Laterality Blood specimen 01/18/2017 7:25 PM 017 7:35 (specimen) EDT PM EDT Resulting Agency Comment Spec In Lab Huan Morris MD CHEMISTRY ORDERABLES Performing Organization Address City/State/[place] [address] POCT Glucose (01/18/2017 3:51 PM EDT) athologist Signature POC Glucose 132 65 - 199 [facility] mg/dL [facility] LABORATORY Comment: Supplemental ranges: <140 mg/dL before meals <180 mg/dL all other times of the day Specimen Anatomical Collection Method Collection Time Receive d Time (Source) Location / / Volume Laterality Blood specimen 01/18/2017 3:51 PM 017 3:51 (specimen) EDT PM EDT Huan Morris MD POINT OF CARE TEST ORDERABLE S Performing Organization Address City/State/[place] [address] (ABNORMAL) Basic Metabolic Panel (non-fasting) (01/18/2017 12:29 PM EDT) athologist Signature Glucose Lvl 131 65 - 199 [facility] mg/dL [facility] LABORATORY Comment: Diabetes: >=200 mg/dL plus symp toms BUN 27 (H) 8 - 18 mg/dL [facility] LABORATORY Creatinine 0.98 0.70 - 1.20 mg/dL [facility] LABORATORY Comment: Please note that the pediatric reference intervals supplied above were not validated at [facility]. Results from pediatri c patients should be interpreted in conjunction to the patient's age, height and muscle mass. Sodium 134 (L) 135 - 145 mmol/L [facility] LABORATORY Potassium 3.8 3.5 - 5.0 mmol/L [facility] LABORATORY Comment: Please note: ??Patients with WBC >100,00 0 may have falsely elevated Potassium levels. ??For accurate Potassium quantif ication in these patients send serum separator tube (gold top) for subsequent determinations. ??Contact the Clinical Chemistry Laboratory if there are any qu estions. Chloride 99 98 - 107 mmol/L [facility] LABORATORY CO2 22 22 - 31 mmol/L [facility] LABOR[facility] Anion Gap 13 5 - 15 mmol/L [facility] LABORATORY Calcium 7.9 (L) 8.5 - 10.5 mg/dL [facility] LABORATORY Estimated GFR 58 (L) >=60 [facility] LABORATORY Comment: This estimated GFR (eGFR) value [...] the following links into your internet browser. [email or web address] Specimen Anatomical Collection Method Collection Time Receive d Time (Source) Location / / Volume Laterality Blood specimen 01/18/2017 12:29 7 (specimen) PM EDT 12:46 PM EDT Resulting Agency Comment Spec In Lab Huan Morris MD CHEMISTRY ORDERABLES Performing Organization Address City/[facility] Phon e Number [address] POCT Glucose (01/18/2017 12:05 PM EDT) P athologist Signature POC Glucose 139 65 - 199 [facility]dL [facility] LABOR[facility]ORY Comment: Supplemental ranges: <140 mg/dL before meals <180 mg/dL all other times of the day Specimen Anatomical Collection Method Collection Time Receive d Time (Source) Location / / Volume Laterality Blood specimen 01/18/2017 12:05 7 (specimen) PM EDT 12:05 PM EDT Huan Morris MD POINT OF CARE TEST ORDERABLE S Performing Organization Address City/[facility]/[place] [address] POCT Glucose (01/18/2017 7:45 AM EDT) P athologist Signature POC Glucose 169 65 - 199 [place] mg/dL [facility] LABORATORY Comment: Supplemental ranges: <140 mg/dL before meals <180 mg/dL all other times of the day Specimen Anatomical Collection Method Collection Time Receive d Time (Source) Location / / Volume Laterality Blood specimen 01/18/2017 7:45 AM 017 7:45 (specimen) EDT AM EDT Huan Morris MD POINT OF CARE TEST ORDERABLE S Performing Organization Address City/[facility]/ZIP Code Phon e Number [address] Vancomycin, trough (01/18/2017 5:00 AM EDT) P athologist Signature Vanc Trough 11.1 mg/L [facility] LABORATORY Comment: Therapeutic range for complicated infect [...] Organization Address City/State/ZIP Code Phon e Number [address] POCT Glucose (01/18/2017 4:04 AM EDT) athologist [facility] POC Glucose 187 65 - 199 [facility] mg/dL [facility] LABORATORY Comment: Supplemental ranges: <140 mg/dL before meals <180 mg/dL all other times of the day Specimen Anatomical Collection Method Collection Time Receive d Time (Source) Location / / Volume Laterality Blood specimen 01/18/2017 4:04 AM 017 4:04 (specimen) EDT AM EDT Huan Morris MD POINT OF CARE TEST ORDERABLE S Performing Organization Address City/State/ZIP Code Phon e Number [address] (ABNORMAL) Differential, Automated (01/18/2017 4:00 AM EDT) Patholo gist Method Time Signature Neutrophils % 85.6 % [facility] LABORATORY Neutr Abs (ANC) 13.17 (H) 1.70 - [facility] 6.10 [facility] x10(3)/[facility] LABORATORY Lymphocytes % 8.4 % [facility] LABORATORY Lymphocytes Abs 1.3 0.9 - 3.2 [facility] x10(3)/[facility] LABORATORY Monocytes % 4.7 % [facility] LABORATORY Monocyte Abs 0.7 0.3 - 0.9 [facility] x10(3)/[facility] LABORATORY Eosinophils % 0.1 % [facility] LABORATORY Eosinophils Abs 0.0 0.0 - 0.4 [facility] x10(3)/[facility] LABORATORY Basophils % 0.1 % [facility] LABORATORY Basophils Abs 0.0 0.0 - 0.1 [facility] x10(3)/[facility] LABORATORY Immature Gran % 1.10 % [facility] LABORATORY Comment: Immature granulocytes(IG's)percentage an d absolute count will include metamyelocytes, myelocytes, and promyelo cytes. Blood smears from CBCs yielding IG's will be scanned manually for concor dance. If this scan disagrees with the automated IG or if promyelocytes are not ed, a manual differential will be performed. Surekha Gran Abs 0.17 (H) 0.00 - 0.04 x10(3)/[facility] LABORATORY Specimen Anatomical Collection Method Collection Time Receive d Time (Source) Location / / Volume Laterality Blood specimen 01/18/2017 4:00 AM 017 4:10 (specimen) EDT AM EDT Resulting Agency Comment Spec In Lab Ramos Kemp APRN HEMATOLOGY ORDERABLES Performing Organization Address City/State/[place] [address] (ABNORMAL) Hemogram (01/18/2017 4:00 AM EDT) Analysis Performed At Patho logist Time Signature WBC 15.4 (H) 4.0 - 9.5 [facility] x10(3)/[facility] LABORATORY RBC 3.55 (L) 4.00 - [facility] 5.21 [facility] x10(6)/[facility] LABORATORY Hemoglobin 10.4 (L) 11.7 - [facility] 15.5 gm/dL [facility] LABORATORY Hematocrit 30.0 (L) 35.7 - [place] 45.8 % [facility] LABORATORY MCV 84.5 82.6 - [place] 94.4 [facility] LABORATORY MCH 29.3 27.1 - [place] 32.0 pg [facility] LABORATORY MCHC 34.7 31.7 - [place] 35.0 gm/dL [facility] LABORATORY Platelets 198 145 - 357 [facility] x10(3)/[facility] LABORATORY RDWSD 42.5 37.0 - [place] 46.0 [facility] LABORATORY RDWCV 13.6 11.5 - [place] 14.1 % [facility] LABORATORY MPV 11.3 7.6 - 12.9 [facility] LABORATORY nRBC % Auto 0.0 % [facility] LABORATORY nRBC Abs Auto 0.000 0.000 - [place] 0.000 [facility] x10(3)/[facility] LABORATORY Specimen Anatomical Collection Method Collection Time Receive d Time (Source) Location / / Volume Laterality Blood specimen 01/18/2017 4:00 AM 017 4:10 (specimen) EDT AM EDT Resulting Agency Comment Spec In Lab Ramos Kemp APRN HEMATOLOGY ORDERABLES Performing Organization Address City/State/ZIP Code Phon e Number [address] (ABNORMAL) Phosphorus (01/18/2017 4:00 AM EDT) P athologist Signature Phosphorus 2.4 (L) 2.5 - 4.5 [facility] mg/dL [facility] LABORATORY Specimen Anatomical Collection Method Collection Time Receive d Time (Source) Location / / Volume Laterality Blood specimen 01/18/2017 4:00 AM 017 4:10 (specimen) EDT AM EDT Resulting Agency Comment Spec In Lab Alvaro Law MD CHEMISTRY ORDERABLES Performing Organization Address City/State/ZIP Code Phon e Number [address] Magnesium (01/18/2017 4:00 AM EDT) P athologist Signature Magnesium 0.71 0.69 - 1.07 [facility] mmol/L [facility] LABORATORY Specimen Anatomical Collection Method Collection Time Receive d Time (Source) Location / / Volume Laterality Blood specimen 01/18/2017 4:00 AM 017 4:10 (specimen) EDT AM EDT Resulting Agency Comment Spec In Lab Alvaro Law MD CHEMISTRY ORDERABLES Performing Organization Address City/State/[place] [address] (ABNORMAL) Basic Metabolic Panel (non-fasting) (01/18/2017 4:00 AM EDT) athologist Signature Glucose Lvl 188 65 - 199 [facility] mg/dL [facility]ORATORY Comment: Diabetes: >=200 mg/dL plus symp toms BUN 38 (H) 8 - 18 mg/dL [facility] LABORATORY Creatinine 1.32 (H) 0.70 - 1.20 mg/dL [facility] LABORATORY Comment: Please note that the pediatric reference intervals supplied above were not validated at [facility]. Results from pediatri c patients should be interpreted in conjunction to the patient's age, height and muscle mass. Sodium 133 (L) 135 - 145 mmol/L [facility] LABORATORY Potassium 4.5 3.5 - 5.0 mmol/L [facility] LABORATORY Comment: Please note: ??Patients with WBC >100,00 0 may have falsely elevated Potassium levels. ??For accurate Potassium quantif ication in these patients send serum separator tube (gold top) for subsequent determinations. ??Contact the Clinical Chemistry Laboratory if there are any qu estions. Chloride 94 (L) 98 - 107 mmol/L [facility] LABORATORY CO2 22 22 - 31 mmol/L [facility] LABORATORY Anion Gap 17 (H) 5 - 15 mmol/L [facility] LABORATORY Calcium 8.4 (L) 8.5 - 10.5 mg/dL [facility] LABORATORY Estimated GFR 41 (L) >=60 [facility] LABORATORY Comment: This estimated GFR (eGFR) value [...] the following links into your internet browser. [email or web address] Specimen Anatomical Collection Method Collection Time Receive d Time (Source) Location / / Volume Laterality Blood specimen 01/18/2017 4:00 AM 017 4:10 (specimen) EDT AM EDT Resulting Agency Comment Spec In Lab Huan Morris MD CHEMISTRY ORDERABLES Performing Organization Address City/[facility]/ZIP Code Phon e Number [address] POCT Glucose (01/18/2017 12:05 AM EDT) athologist Signature POC Glucose 190 65 - 199 [facility]dL [facility] Comment: Supplemental ranges: <140 mg/dL before meals <180 mg/dL all other times of the day Specimen Anatomical Collection Method Collection Time Receive d Time (Source) Location / / Volume Laterality Blood specimen 01/18/2017 12:05 7 (specimen) AM EDT 12:05 AM EDT Huan Morris MD POINT OF CARE TEST ORDERABLE S Performing Organization Address City/[facility]/[place] [address] (ABNORMAL) Basic Metabolic Panel (non-fasting) (01/17/2017 6:28 PM EDT) P athologist Signature Glucose Lvl 219 (H) 65 - [address] [facility] Comment: Diabetes: >=200 mg/dL plus symp toms BUN 59 (H) 8 - 18 mg/dL [facility] LABORATORY Creatinine 2.11 (H) 0.70 - 1.20 mg/dL [facility] LABORAT[facility] Comment: result rechecked-ga Please note that the pediatric reference intervals supplied above were not validated at [facility]. Results from pediatri c patients should be interpreted in conjunction to the patient's age, height and muscle mass. Sodium 132 (L) 135 - 145 mmol/L [facility] LABORAT[facility] Potassium 4.9 3.5 - 5.0 mmol/L [facility] LABOR[facility] Comment: Please note: ??Patients with WBC >100,00 0 may have falsely elevated Potassium levels. ??For accurate Potassium quantif ication in these patients send serum separator tube (gold top) for subsequent determinations. ??Contact the Clinical Chemistry Laboratory if there are any qu estions. Chloride 95 (L) 98 - 107 mmol/L [facility]OR[facility] CO2 17 (L) 22 - 31 mmol/L [facility] Anion Gap 20 (H) 5 - 15 mmol/L [facility]ORATORY Calcium 7.9 (L) 8.5 - 10.5 mg/dL [facility] LABORATORY Estimated GFR 24 (L) >=60 [facility]ORAT[facility] Comment: This estimated GFR (eGFR) value [...] the following links into your internet browser. [email or web address] Specimen Anatomical Collection Method Collection Time Receive d Time (Source) Location / / Volume Laterality Blood specimen 01/17/2017 6:28 PM 017 6:48 (specimen) EDT PM EDT Resulting Agency Comment Spec In Lab Huan Morris MD CHEMISTRY ORDERABLES Performing Organization Address City/State/[place] [address] (ABNORMAL) Urinalysis with reflex Culture (01/17/2017 6:23 PM EDT) Patholo gist Method Time Signature Glucose UA 50 (A) Negative [facility] mg/dL [facility] Protein UA Negative Negative [facility] mg/dL [facility] Bilirubin UA Negative Negative [facility] mg/dL [facility] Comment: Clinical correlation required for positi ve Urine Bilirubin results as false positive may occur with some drugs and d rug related products. If a false positive is suspected a serum total bili armas should be considered if clinically indicated. Urobilinogen UA Normal Normal mg/dL [facility] LABORATORY pH UA 6.0 5.0 - 8.0 [facility]ORATORY Blood UA Moderate (A) Negative mg/dL [facility] LABORATORY Ketones UA 20 (A) Negative mg/dL [facility]OR[facility] Nitrite UA Negative Negative [facility]OR[facility] Leukocytes UA Trace (A) Negative [facility] LABORATORY Appearance UA Clear Clear [facility]ORATORY Spec [place] UA 1.011 1.002 - 1.030 [facility] LABORAT[facility] Color UA Straw Yellow [facility]ORAT[facility] RBC UA 6 (H) 0 - 4 /HPF [facility] LABORATORY WBC UA 1 0 - 5 /HPF [facility] Squam Epith UA 1 <=4 /HPF [facility]OR[facility] Culture Reflexed No [facility] LABOR[facility] Specimen (Source) Anatomical Collection Method Collection Time Re ceived Time Location / / Volume Laterality Urine specimen 01/17/2017 6:23 01/17/2017 6:45 obtained via PM EDT PM EDT indwelling urinary catheter (specimen) Resulting Agency Comment Spec In Lab Huan Morris MD URINE ORDERABLES Performing Organization Address City/State/[place] [address] (ABNORMAL) POCT Glucose (01/17/2017 6:20 PM EDT) P athologist Signature POC Glucose 232 (H) 65 - 199 [facility] mg/dL [facility] Comment: Supplemental ranges: <140 mg/dL before meals <180 mg/dL all other times of the day Specimen Anatomical Collection Method Collection Time Receive d Time (Source) Location / / Volume Laterality Blood specimen 01/17/2017 6:20 PM 017 6:20 (specimen) EDT PM EDT Huan Morris MD POINT OF CARE TEST ORDERABLE S Performing Organization Address City/[facility]/[place] [address] (ABNORMAL) Urinalysis without microscopic (01/17/2017 1:10 PM EDT) [facility] Method Time Signature Glucose UA Negative Negative [facility] mg/dL [facility] Protein UA Negative Negative [facility] mg/dL [facility] Bilirubin UA Negative Negative [facility] mg/dL [facility] Comment: Clinical correlation required for positi ve Urine Bilirubin results as false positive may occur with some drugs and d rug related products. If a false positive is suspected a serum total bili armas should be considered if clinically indicated. Urobilinogen UA Normal Normal mg/dL [facility] LABORATORY pH UA 6.0 5.0 - 8.0 [facility] Blood UA Moderate (A) Negative mg/dL [facility] LABORATORY Ketones UA 5 (A) Negative mg/dL [facility] Nitrite UA Negative Negative [facility] Leukocytes UA Moderate (A) Negative [facility] LABORATORY Appearance UA Clear Clear [facility] LABORATORY Spec [place] UA 1.010 1.002 - 1.030 [facility] LABORAT[facility] Color UA Straw Yellow [facility]ORATORY Specimen Anatomical Collection Method Collection Time Receive d Time (Source) Location / / Volume Laterality Urine specimen 01/17/2017 1:10 PM 017 1:24 (specimen) EDT PM EDT Resulting Agency Comment Spec In Lab Ramos Kemp MOTOR [employer]ODGE CLERK URINE ORDERABLES Performing Organization Address City/[facility]/[place] [address] (ABNORMAL) BLOOD GAS 2 ARTERIAL (01/17/2017 1:07 PM EDT) Analysis Performed At Patho logist Time Signature pH Art 7.41 7.35 - [facility] 7.45 [facility]ORATORY pCO2 Art 26 (L) 35 - 45 [facility] mmHg [facility]ORATORY pO2 Art 92 85 - 104 [facility] LABORATORY HCO3 Art 16.2 (L) 20.0 - [facility] 26.0 [facility] mmol/L [facility] LABORATORY BE Art -8.4 (L) -3.0 - 3.0 [facility] mmol/L [facility]ORATORY Hgb Blood Gas 11.0 (L) 11.7 - [facility] 15.5 gm/dL [facility] O2HB Art 95.5 94.0 - [facility] 97.0 % [facility]ORATORY COHB Art 0.3 % [facility] LAB[facility] Comment: Nonsmokers: 0.5-1.5% COHB Smokers: Variable, but usually less than 10% Toxic: 20-30% COHB Lethal: Greater than 60% COHB METHB Art 0.5 <=1.5 % [facility] LABORATORY Na Whole Blood 130 (L) 135 - 145 mmol/L [facility] LABORATORY K Whole Blood 4.2 3.5 - 5.0 mmol/L [facility] LABORATORY Comment: Please note: Patients with WBC >100,000 may have falsely elevated Potassium levels. Contact the Clinical Chemistry L aboratory if there are any questions. ICa Whole Blood 1.03 (L) 1.15 - 1.33 mmol/L [facility]OR[facility] Comment: Note: ??Total bilirubin higher than 20 m g/dL may lead to falsely low ionized calcium. CL Whole Blood 104 98 - 107 mmol/L [facility] LABOR[facility]ORY Gluc Whole Bld 144 65 - 199 mg/dL [facility] Comment: Diabetes: >=200 mg/dL plus symp toms. Lactate WB 1.7 0.5 - 2.2 mmol/L [facility] LABORATORY Flow Art 2.0 LPM [facility]ORATORY Specimen Anatomical Collection Method Collection Time Receive d Time (Source) Location / / Volume Laterality Blood specimen 01/17/2017 1:07 PM 017 1:07 (specimen) EDT PM EDT Huan Morris MD CHEMISTRY ORDERABLES Performing Organization Address City/State/[place] [address] Request For 2nd Read [...] Signature POC Glucose 167 65 - 199 [facility] mg/dL [facility] Comment: Supplemental ranges: <140 mg/dL before meals <180 mg/dL all other times of the day Specimen Anatomical Collection Method Collection Time Receive d Time (Source) Location / / Volume Laterality Blood specimen 01/17/2017 12:00 7 (specimen) PM EDT 12:00 PM EDT Luther Handy MD POINT OF CARE TEST ORDERABLE S Performing Organization Address City/State/[place] [address] (ABNORMAL) Hemogram (01/17/2017 12:00 PM EDT) Analysis Performed At Patho logist Time Signature WBC 24.0 (H) 4.0 - 9.5 [facility] x[facility](3[facility] LABORATORY RBC 3.99 (L) 4.00 - [place] 5.21 [facility] x10(6)/[facility] LABORATORY Hemoglobin 11.5 (L) 11.7 - [facility] 15.5 gm/dL [facility]ORATORY Hematocrit 33.1 (L) 35.7 - [facility] 45.8 % [facility]ORATORY MCV 83.0 82.6 - [facility] 94.4 [facility] LABORATORY MCH 28.8 27.1 - [place] 32.0 pg [facility] LABORATORY MCHC 34.7 31.7 - [facility] JAY 35.0 gm/dL [facility]ORATORY Platelets 265 145 - 357 [facility] x[facility](3[facility] LABORATORY RDWSD 42.5 37.0 - [facility] JAY 46.0 [facility] LABORATORY RDWCV 13.9 11.5 - [facility] JAY 14.1 % [facility] LABORATORY MPV 11.5 7.6 - 12.9 [facility] LABORATORY nRBC % Auto 0.0 % [facility] LABORATORY nRBC Abs Auto 0.000 0.000 - [facility] JAY 0.000 [facility] x10(3)/[facility] LABORATORY Specimen Anatomical Collection Method Collection Time Receive d Time (Source) Location / / Volume Laterality Blood specimen 01/17/2017 12:00 01/17/201 7 (specimen) PM EDT 12:11 PM EDT Resulting Agency Comment Spec In Lab Luther Handy MD HEMATOLOGY ORDERABLES Performing Organization Address City/State/[place] [address] (ABNORMAL) Sedimentation rate (01/17/2017 12:00 PM EDT) P athologist Signature Sed Rate 51 (H) 0 - 20 [facility] mm/hr [facility] LABORATORY Specimen Anatomical Collection Method Collection Time Receive d Time (Source) Location / / Volume Laterality Blood specimen 01/17/2017 12:00 7 (specimen) PM EDT 12:11 PM EDT Resulting Agency Comment Spec In Lab Luther Handy MD HEMATOLOGY ORDERABLES Performing Organization Address City/[facility]/ZIP Code Phon e Number [address] Proteinase-3 Antibody (01/17/2017 12:00 PM EDT) athologist Signature PR3 Ab 2.3 <=20.0 [facility] LABORATORY Specimen Anatomical Collection Method Collection Time Receive d Time (Source) Location / / Volume Laterality Blood specimen 01/17/2017 12:00 7 1:41 (specimen) PM EDT PM EDT Resulting Agency Comment Spec In Lab Luther Handy MD CHEMISTRY ORDERABLES Performing Organization Address City/[facility]/ZIP Code Phon e Number [address] Myeloperoxidase Ab (01/17/2017 12:00 PM EDT) P athologist Signature MPO Ab <2.0 <=20.0 [facility] LABORATORY Specimen Anatomical Collection Method Collection Time Receive d Time (Source) Location / / Volume Laterality Blood specimen 01/17/2017 12:00 7 1:41 (specimen) PM EDT PM EDT Resulting Agency Comment Spec In Lab Luther Handy MD CHEMISTRY ORDERABLES Performing Organization Address City/State/ZIP Code Phon e Number [address] Cytoplasmic Neutrophilic Ab (01/17/2017 12:00 PM EDT) P athologist Signature C-ANCA Negative Negative [facility] LABORATORY Comment: Test Performed by: [facility] - [address] [address] P-ANCA Negative Negative [facility] LABORATORY Comment: Negative for cANCA and pANCA patterns by immunofluorescence. ADDITIONAL INFORMATIO N This test was developed and its performa nce characteristics determined by [facility] in a manner co nsistent with CLIA requirements. This test has not been vicki ared or approved by the U.S. Food and Drug Administration. Test Performed by: [facility] - [address] [address] Specimen Anatomical Collection Method Collection Time Receive d Time (Source) Location / / Volume Laterality Blood specimen 01/17/2017 12:00 7 4:04 (specimen) PM EDT PM EDT Resulting Agency Comment Spec In Lab Luther Handy MD CHEMISTRY ORDERABLES Performing Organization Address City/[facility] [place] [address] Glomerular Basement Membrane Antibody IgG (01/17/2017 12:00 PM EDT) athologist Signature GBM Ab <0.2 <1.0 [facility] (Negative) [facility] LABORATORY Comment: Test Performed by: [facility] - [address] [address] Specimen Anatomical Collection Method Collection Time Receive d Time (Source) Location / / Volume Laterality Blood specimen 01/17/2017 12:00 7 4:04 (specimen) PM EDT PM EDT Resulting Agency Comment Spec In Lab Luther Handy MD IMMUNOLOGY ORDERABLES Performing Organization Address City/[facility]/ZIP [facility] [address] [address] (ABNORMAL) Basic Metabolic Panel (non-fasting) (01/17/2017 12:00 PM EDT) athologist Signature Glucose Lvl 167 65 - 199 [facility] mg/dL [facility]ORATORY Comment: Diabetes: >=200 mg/dL plus symp toms BUN 84 (H) 8 - 18 mg/dL [facility] Creatinine 3.29 (H) 0.70 - 1.20 mg/dL [facility] Comment: Please note that the pediatric reference intervals supplied above were not validated at [facility]. Results from pediatri c patients should be interpreted in conjunction to the patient's age, height and muscle mass. Sodium 129 (L) 135 - 145 mmol/L [facility] Potassium 5.1 (H) 3.5 - 5.0 mmol/L [facility] Comment: Please note: ??Patients with WBC >100,00 0 may have falsely elevated Potassium levels. ??For accurate Potassium quantif ication in these patients send serum separator tube (gold top) for subsequent determinations. ??Contact the Clinical Chemistry Laboratory if there are any qu estions. Chloride 91 (L) 98 - 107 mmol/L [facility] CO2 16 (L) 22 - 31 mmol/L [facility] Anion Gap 22 (H) 5 - 15 mmol/L [facility] Calcium 8.1 (L) 8.5 - 10.5 mg/dL [facility] Estimated GFR 14 (L) >=60 [facility] Comment: This estimated GFR (eGFR) value [...] the following links into your internet browser. [email or web address] Specimen Anatomical Collection Method Collection Time Receive d Time (Source) Location / / Volume Laterality Blood specimen 01/17/2017 12:00 7 (specimen) PM EDT 12:11 PM EDT Resulting Agency Comment Spec In Lab Ramos Kemp MOTOR LODGE CLERK CHEMISTRY ORDERABLES Performing Organization Address City/State/[place] [address] US Retroperitoneal Complete (01/17/2017 [...] 11:44 am) PATIENT INFO: ID #: ? [id number] ?: ??[birth year] (61 yrs) Name: ? CYN Magana YOUNG ? Visit Date: 01/17/2017 11:29 am PERFORMED BY: Performed By: ? Matt Carroll RDMS Attending: ?Segun GARCIA, Stephanie Morton . Referred By: ?JABARI CONNORS Location: ? [place] SERVICE(S) PROVIDED: ??URETRO - Retroperitoneal Complete - I [id number] ? [id number] INDICATIONS: ??JODY RIGHT KIDNEY: Cortical Thickness: ?Limited [...] 11:44 am ) PATIENT INFO: ID #: [id number] : [birth year] (61 y rs) Name: CYN PRADO Visit Date: 01/18/20 17 11:29 am PERFORMED BY: Performed By: Juli Carroll RDMS Attending: Stephanie Cast MD Referred By: JABARI CONNORS Location: [place] SERVICE(S) PROVIDED: URETRO - Retroperitoneal Complete - IMG [id number] INDICATIONS: JODY RIGHT KIDNEY: Cortical Thickness: Limited [...] Final Report 01/17 11:44 am Jabari Connors MOTOR LODGE CLERK IMG US GEN ORDERABLES ECHOCARDIOGRAM COMPLETE W CONTRAST (01/17/2017 11:30 AM EDT) P athologist Signature EF 75 [facility] Anatomical Region Laterality Modality Other Specimen (Source) Anatomical Location Collection Method / Collectio n Time Received Time / Laterality Volume 01/17/2017 Narrative 01/17/2017 12:41 PM EDT Procedure: ?Transthoracic Echocardiogram Patient: ?YOUNG CYN A ?(Age): 1955(61y) Med Rec#: ? [id number] ?Sex: ?F ? Site Loc: ? [facility] ?Ht / Wt: ??160(cm)/184(kg) Pt. Loc: ?Adult Floor ? BSA: ?2.61 Study Date: ?? 01/17/2017 ?Pt. Type: Inpatient Tape: ? Referring: Jabari Connors Referring: MADAN TAYLOR J Reading: Krunal Shaw ([id number]) Ditching Machine Operating Engineer: Luigi Ramirez Diagnosis: *ICD-10-PCS Hypotension, unspecified (I [...] E-wave Vmax ?1.1 ?m/sec ? MV deceleration [id number] ?msec ? MV A-wave Vmax ?1.3 ?m/sec [...] ? Mid-Inferior ?Normal ? Mid-Inferoseptal ?Normal ? [place]-Septal ? Normal ? [place]-Anterior ? Normal ? [place]-Lateral ?Normal ? [place]-Inferior ? Normal ? [place]-Tip ?Normal ? This report has been electronically sign ed by: _ Krunal Shaw M.D. ? 01/17/2017 12:40:54 Images reviewed and interpretation [facility] Cardiac Ultrasound Laboratory Procedure Note Krunal Shaw MD - 01/17/2017Format ting of this note might be different from the original. Procedure: Transthoracic Echocardiogram Patient: JOHAN Magana (Age): [birth year] [age]y) Med Rec#: [id number] Sex: F Site Loc: [facility] Ht / Wt: 160(cm)/184(kg) Pt. Loc: Adult Floor BSA: 2.61 Study Date: 01/17/2017 Pt. Type: Inpatie nt Tape: Referring: Jabari Connors Referring: MADAN TAYLOR J Reading: Krunal Shaw Chion ([id number]) Ditching Machine Operating Engineer: Luigi Ramirez Diagnosis: *ICD-10-PCS Hypotension, unspecified (I [...] MV E-wave Vmax 1.1 m/sec MV deceleration [id number] msec MV A-wave Vmax 1.3 m/sec MV [...] Normal Mid-Posterolateral Normal Mid-Inferior Normal Mid-Inferoseptal Normal [place]-Septal Normal [place]-Anterior Normal [place]-Lateral Normal [place]-Inferior Normal [place]-Tip Normal This report has been electronically sign ed by: _ Krunal Shaw M.D. 01/17/2017 12:40: 54 Images reviewed and interpretation song olea [facility] Cardiac Ultrasound Laboratory Jabari Connors DEISY ECHO ORDERABLES Cortisol (01/17/2017 7:35 AM EDT) athologist Signature Cortisol 12.8 mcg/dL [facility]OR[facility] Comment: An updated cortisol assay reagent [...] Garland MD CHEMISTRY ORDERABLES Performing Organization Address City/[facility]/ZIP Code Phon e Number [address] POCT Glucose (01/17/2017 7:35 AM EDT) athologist Signature POC Glucose 166 65 - 199 [facility] mg/dL [facility]ORATORY Comment: Supplemental ranges: <140 mg/dL before meals <180 mg/dL all other times of the day Specimen Anatomical Collection Method Collection Time Receive d Time (Source) Location / / Volume Laterality Blood specimen 01/17/2017 7:35 AM 017 7:35 (specimen) EDT AM EDT Luther Handy MD POINT OF CARE TEST ORDERABLE S Performing Organization Address City/State/ZIP Code Phon e Number [facility] [place] [address] (ABNORMAL) Basic Metabolic Panel (non-fasting) (01/17/2017 7:35 AM EDT) athologist Signature Glucose Lvl 154 65 - 199 [facility] mg/dL [facility] Comment: Diabetes: >=200 mg/dL plus symp toms BUN 97 (H) 8 - 18 mg/dL [facility]ORATORY Creatinine 3.97 (H) 0.70 - 1.20 mg/dL [facility]OR[facility] Comment: result rechecked-mkf Please note that the pediatric reference intervals supplied above were not validated at [facility]. Results from pediatri c patients should be interpreted in conjunction to the patient's age, height and muscle mass. Sodium 128 (L) 135 - 145 mmol/L [facility]ORAT[facility] Potassium 5.1 (H) 3.5 - 5.0 mmol/L [facility] Comment: Please note: ??Patients with WBC >100,00 0 may have falsely elevated Potassium levels. ??For accurate Potassium quantif ication in these patients send serum separator tube (gold top) for subsequent determinations. ??Contact the Clinical Chemistry Laboratory if there are any qu estions. Chloride 91 (L) 98 - 107 mmol/L [facility] CO2 16 (L) 22 - 31 mmol/L [facility] Anion Gap 21 (H) 5 - 15 mmol/L [facility]AT[facility] Calcium 7.9 (L) 8.5 - 10.5 mg/dL [facility]ORAT[facility] Estimated GFR 12 (L) >=60 [facility] Comment: This estimated GFR (eGFR) value [...] the following links into your internet browser. [email or web address] Specimen Anatomical Collection Method Collection Time Receive d Time (Source) Location / / Volume Laterality Blood specimen 01/17/2017 7:35 AM 017 7:40 (specimen) EDT AM EDT Resulting Agency Comment Spec In Lab Ramos Montalvoault MOTOR LODGE CLERK CHEMISTRY ORDERABLES Performing Organization Address City/State/[place] [address] (ABNORMAL) BLOOD GAS 2 VENOUS (01/17/2017 3:14 AM EDT) P athologist Signature pH Danie 7.37 7.32 - [facility] 7.42 [facility]ORATORY pCO2 Danie 33 (L) 41 - 51 [facility] LABORATORY pO2 Danie 75 (H) 25 - 40 [facility] LABORATORY HCO3 Danie 18.6 mmol/L [facility] LABORAT[facility] BE Danie -6.7 mmol/L [facility]OR[facility]ORY Hgb Blood Gas 13.5 11.7 - [facility] 15.5 gm/dL [facility]ORAT[facility] O2HB Danie 93.6 % [facility]OR[facility] COHB Danie 0.4 % [facility] Comment: Nonsmokers: 0.5-1.5% COHB Smokers: Variable, but usually less than 10% Toxic: 20-30% COHB Lethal: Greater than 60% COHB METHB Danie 0.4 <=1.5 % [facility]ORAT[facility] Na Whole Blood 127 (L) 135 - 145 mmol/L [facility] K Whole Blood 5.1 (H) 3.5 - 5.0 mmol/L [facility] LABORATORY Comment: Please note: Patients with WBC >100,000 may have falsely elevated Potassium levels. Contact the Clinical Chemistry L aboratory if there are any questions. ICa Whole Blood 1.08 (L) 1.15 - 1.33 mmol/L [facility] Comment: Note: ??Total bilirubin higher than 20 m g/dL may lead to falsely low ionized calcium. CL Whole Blood 96 (L) 98 - 107 mmol/L [facility] LABORATORY Gluc Whole Bld 114 65 - 199 mg/dL [facility] Comment: Diabetes: >=200 mg/dL plus symp toms Lactate WB 1.6 0.5 - 2.2 mmol/L [facility] LABORATORY Flow Danie 5.0 LPM [facility] LABORATORY BGas Source Central Venous [facility] LABORATORY Specimen Anatomical Collection Method Collection Time Receive d Time (Source) Location / / Volume Laterality Blood specimen 01/17/2017 3:14 AM 017 3:14 (specimen) EDT AM EDT Alvaro Law MD CHEMISTRY ORDERABLES Performing Organization Address City/State/[place] [address] (ABNORMAL) Differential, Automated (01/17/2017 2:15 AM EDT) [facility] gist Method Time Signature Neutrophils % 71.6 % [facility] LABORATORY Neutr Abs (ANC) 18.01 (H) 1.70 - [facility] 6.10 [facility] x10(3)[facility] LABORATORY Lymphocytes % 16.0 % [facility] LABORATORY Lymphocytes Abs 4.0 (H) 0.9 - 3.2 [facility] x10(3)[facility] LABORATORY Monocytes % 10.6 % [facility] LABORATORY Monocyte Abs 2.7 (H) 0.3 - 0.9 [facility] x10(3)[facility] LABORATORY Eosinophils % 0.5 % [facility] LABORATORY Eosinophils Abs 0.1 0.0 - 0.4 [facility] x10(3)[facility] LABORATORY Basophils % 0.1 % [facility] LABORATORY Basophils Abs 0.0 0.0 - 0.1 [facility] x10(3)[facility] LABORATORY Immature Gran % 1.20 % [facility] LABORATORY Comment: Immature granulocytes(IG's)percentage an d absolute count will include metamyelocytes, myelocytes, and promyelo cytes. Blood smears from CBCs yielding IG's will be scanned manually for concor dance. If this scan disagrees with the automated IG or if promyelocytes are not ed, a manual differential will be performed. Surekha Gran Abs 0.29 (H) 0.00 - 0.04 x10(3)/[facility] LABORATORY Specimen Anatomical Collection Method Collection Time Receive d Time (Source) Location / / Volume Laterality Blood specimen 01/17/2017 2:15 AM 017 2:20 (specimen) EDT AM EDT Resulting Agency Comment Spec In Lab Alvaro Law MD HEMATOLOGY ORDERABLES Performing Organization Address City/State/[place] [address] (ABNORMAL) Hemogram (01/17/2017 2:15 AM EDT) Analysis Performed At Patho logist Time Signature WBC 25.1 (H) 4.0 - 9.5 [facility] x[facility](3[facility] LABORATORY RBC 4.06 4.00 - [facility] 5.21 [facility] x10(6)/[facility] LABORATORY Hemoglobin 12.0 11.7 - [facility] 15.5 gm/dL [facility] LABORATORY Hematocrit 34.4 (L) 35.7 - [facility] 45.8 % [facility]AT[facility] MCV 84.7 82.6 - [facility] 94.4 [facility] LABORATORY MCH 29.6 27.1 - [place] 32.0 pg [facility] LABORATORY MCHC 34.9 31.7 - [facility] 35.0 gm/dL [facility]ORATORY Platelets 281 145 - 357 [facility] x[facility](3[facility] LABORATORY RDWSD 44.1 37.0 - [facility] 46.0 [facility] LABORATORY RDWCV 14.3 (H) 11.5 - [facility] 14.1 % [facility] LABORATORY MPV 12.1 7.6 - 12.9 [facility] nRBC % Auto 0.0 % [facility] LABORATORY nRBC Abs Auto 0.000 0.000 - [place] 0.000 [facility] x10(3)/[facility] LABORATORY Specimen Anatomical Collection Method Collection Time Receive d Time (Source) Location / / Volume Laterality Blood specimen 01/17/2017 2:15 AM 017 2:20 (specimen) EDT AM EDT Resulting Agency Comment Spec In Lab Alvaro Law MD HEMATOLOGY ORDERABLES Performing Organization Address City/[facility]/ZIP Code Phon e Number [address] Phosphorus (01/17/2017 2:15 AM EDT) P athologist Signature Phosphorus 4.0 2.5 - 4.5 [facility] mg/dL [facility] LABORATORY Specimen Anatomical Collection Method Collection Time Receive d Time (Source) Location / / Volume Laterality Blood specimen 01/17/2017 2:15 AM 017 2:20 (specimen) EDT AM EDT Resulting Agency Comment Spec In Lab Alvaro Law MD CHEMISTRY ORDERABLES Performing Organization Address City/[facility]/ZIP Code Phon e Number [address] Magnesium (01/17/2017 2:15 AM EDT) P athologist Signature Magnesium 0.95 0.69 - 1.07 [facility] mmol/L [facility] LABORATORY Specimen Anatomical Collection Method Collection Time Receive d Time (Source) Location / / Volume Laterality Blood specimen 01/17/2017 2:15 AM 017 2:20 (specimen) EDT AM EDT Resulting Agency Comment Spec In Lab Alvaro Law MD CHEMISTRY ORDERABLES Performing Organization Address City/[facility]/[place] [address] (ABNORMAL) Basic Metabolic Panel (non-fasting) (01/17/2017 2:15 AM EDT) P athologist Signature Glucose Lvl 116 65 - [address] [facility]ORY Comment: Diabetes: >=200 mg/dL plus symp toms BUN 109 (H) 8 - 18 mg/dL [facility] LABORATORY Creatinine 4.96 (H) 0.70 - 1.20 mg/dL [facility] LABORATORY Comment: result rechecked-rr Please note that the pediatric reference intervals supplied above were not validated at [facility]. Results from pediatri c patients should be interpreted in conjunction to the patient's age, height and muscle mass. Sodium 128 (L) 135 - 145 mmol/L [facility] LABORATORY Potassium 5.4 (H) 3.5 - 5.0 mmol/L [facility] LABORATORY Comment: Please note: ??Patients with WBC >100,00 0 may have falsely elevated Potassium levels. ??For accurate Potassium quantif ication in these patients send serum separator tube (gold top) for subsequent determinations. ??Contact the Clinical Chemistry Laboratory if there are any qu estions. Chloride 89 (L) 98 - 107 mmol/L [facility]ORATORY CO2 17 (L) 22 - 31 mmol/L [facility]ORAT[facility] Anion Gap 22 (H) 5 - 15 mmol/L [facility]ORATORY Calcium 7.8 (L) 8.5 - 10.5 mg/dL [facility] LABORATORY Estimated GFR 9 (L) >=60 [facility]ORATORY Comment: This estimated GFR (eGFR) value [...] the following links into your internet browser. [email or web address] Specimen Anatomical Collection Method Collection Time Receive d Time (Source) Location / / Volume Laterality Blood specimen 01/17/2017 2:15 AM 017 2:19 (specimen) EDT AM EDT Resulting Agency Comment Spec In Lab Ramos Kemp APRN CHEMISTRY ORDERABLES Performing Organization Address City/State/[place] [address] Insert Arterial Line (01/17/2017 [...] p lanned procedure. ?? Hand Hygiene: The bit tapper did perform h and hygiene prior to [...] AM EDT) athologist Signature Heparin 1.40 IU/mL [place] [id number] [facility] LABORATORY Comment: Guidelines for therapeutic unfractionate d [...] Organization Address City/State/[place] [address] EKG 12 Lead (01/16/2017 11:16 PM EDT) Component Value Ref Range Test Analysis Performed Pathologis t Method Time At Signature Ventricular rate 82 BPM MUSE SYSTEM Atrial Rate 82 BPM MUSE SYSTEM P-R Interval 192 ms MUSE SYSTEM QRS Duration 114 ms MUSE SYSTEM Q-T Interval 412 ms MUSE SYSTEM QTC Calculated 481 ms MUSE SYSTEM (Bezet) Calculated P [place] 70 degrees MUSE SYSTEM Calculated R [place] 53 degrees MUSE SYSTEM Calculated T [place] 26 degrees MUSE SYSTEM INTERPRETATION Normal sinus rhythm with sinus arrhythmia MUSE SYSTEM Prolonged QT Abnormal ECG When compared with ECG of 16-JAN-2017 17:19, No significant change was found I personally reviewed the tracing and edited the fellows int erpretation Confirmed by fellow MD Geovanni, Venkatesh ([id number]) on 01/17/2017 1 1:15:43 AM Confirmed by MD Levy, Madan ([id number]) on 01/17/2017 5:42 :15 PM Specimen Anatomical [...] Agus Delgadillo at 01/17/2017 1:21 AM Jabari Lauragregg DEISY IMG DX ORDERABLES (ABNORMAL) Differential, Automated (01/16/2017 9:45 PM EDT) [facility] Method Time Signature Neutrophils % 69.8 % [facility] LABORATORY Neutr Abs (ANC) 9.91 (H) 1.70 - [facility] 6.10 [facility] x10(3)/[facility] LABORATORY Lymphocytes % 18.8 % [facility] LABORATORY Lymphocytes Abs 2.7 0.9 - 3.2 [facility] x10(3)/[facility] LABORATORY Monocytes % 9.3 % [facility] LABORATORY Monocyte Abs 1.3 (H) 0.3 - 0.9 [facility] x10(3)/[facility] LABORATORY Eosinophils % 0.8 % [facility] LABORATORY Eosinophils Abs 0.1 0.0 - 0.4 [facility] x10(3)/[facility] LABORATORY Basophils % 0.1 % [facility] LABORATORY Basophils Abs 0.0 0.0 - 0.1 [facility] x10(3)/[facility] LABORATORY Immature Gran % 1.20 % [facility] LABORATORY Comment: Immature granulocytes(IG's)percentage an d absolute count will include metamyelocytes, myelocytes, and promyelo cytes. Blood smears from CBCs yielding IG's will be scanned manually for concor dance. If this scan disagrees with the automated IG or if promyelocytes are not ed, a manual differential will be performed. Surekha Gran Abs 0.17 (H) 0.00 - 0.04 x10(3)/[facility] LABORATORY Specimen Anatomical Collection Method Collection Time Receive d Time (Source) Location / / Volume Laterality Blood specimen 01/16/2017 9:45 PM 017 9:58 (specimen) EDT PM EDT Resulting Agency Comment Spec In Lab Jabari Connors DEISY HEMATOLOGY ORDERABLES Performing Organization Address City/State/[place] [address] (ABNORMAL) Hemogram (01/16/2017 9:45 PM EDT) Analysis Performed At Patho logist Time Signature WBC 14.2 (H) 4.0 - 9.5 [facility] x10(3)/[facility] LABORATORY RBC 3.41 (L) 4.00 - [facility] 5.21 [facility] x10(6)/[facility] LABORATORY Hemoglobin 10.0 (L) 11.7 - [facility] 15.5 gm/dL [facility] Hematocrit 28.9 (L) 35.7 - [facility] 45.8 % [facility] LABORATORY MCV 84.8 82.6 - [facility] 94.4 [facility] LABORATORY MCH 29.3 27.1 - [place] 32.0 pg [facility] LABORATORY MCHC 34.6 31.7 - [place] 35.0 gm/dL [facility] LABORATORY Platelets 205 145 - 357 [facility] x10(3)/[facility] LABORATORY RDWSD 44.6 37.0 - [place] 46.0 [facility] LABORATORY RDWCV 14.5 (H) 11.5 - [place] 14.1 % [facility] LABORATORY MPV 12.1 7.6 - 12.9 [place] LABORATORY nRBC % Auto 0.0 % [facility] LABORATORY nRBC Abs Auto 0.000 0.000 - [place] 0.000 [facility] x10(3)/[facility] LABORATORY Specimen Anatomical Collection Method Collection Time Receive d Time (Source) Location / / Volume Laterality Blood specimen 01/16/2017 9:45 PM 017 9:58 (specimen) EDT PM EDT Resulting Agency Comment Spec In Lab Jabari Sanchezconnie OLIVAS HEMATOLOGY ORDERABLES Performing Organization Address City/State/[place] [address] (ABNORMAL) Hepatic Function Panel (01/16/2017 9:45 PM EDT) P athologist Signature Total Protein 5.1 (L) 6.1 - 8.0 [place] gm/dL [facility] LABORATORY Albumin 2.6 (L) 3.2 - 5.2 [place] gm/dL [facility] LABORATORY AST 13 0 - 30 [place] unit/L [facility] LABORAT[facility] ALT 25 0 - 30 [place] unit/L [facility]ORATORY Alk Phos 48 40 - 104 [place] unit/L [facility] LABORATORY Total 0.5 0.2 - 1.3 [place] Bilirubin mg/dL [facility] LABORATORY Bili, Direct 0.2 0.0 - 0.3 [place] mg/dL [facility] LABORATORY Specimen Anatomical Collection Method Collection Time Receive d Time (Source) Location / / Volume Laterality Blood specimen 01/16/2017 9:45 PM 017 9:54 (specimen) EDT PM EDT Resulting Agency Comment Spec In Lab Jabari Connors APRN CHEMISTRY ORDERABLES Performing Organization Address City/[facility]/ZIP Code Phon e Number [address] (ABNORMAL) Phosphorus (01/16/2017 9:45 PM EDT) athologist Signature Phosphorus 5.1 (H) 2.5 - 4.5 [place] mg/dL [facility] LABORATORY Specimen Anatomical Collection Method Collection Time Receive d Time (Source) Location / / Volume Laterality Blood specimen 01/16/2017 9:45 PM 017 9:54 (specimen) EDT PM EDT Resulting Agency Comment Spec In Lab Jabari Connors APRN CHEMISTRY ORDERABLES Performing Organization Address City/[facility]/[place] [address] Magnesium (01/16/2017 9:45 PM EDT) athologist Signature Magnesium 0.97 0.69 - 1.07 [place] mmol/L [facility] LABORATORY Specimen Anatomical Collection Method Collection Time Receive d Time (Source) Location / / Volume Laterality Blood specimen 01/16/2017 9:45 PM 017 9:54 (specimen) EDT PM EDT Resulting Agency Comment Spec In Lab Jabari Connors APRN CHEMISTRY ORDERABLES Performing Organization Address City/[facility] [place] [address] Cardiac Enzymes (01/16/2017 9:45 PM EDT) P athologist Signature Troponin-T <0.03 <=0.03 [place] ng/mL [facility] Comment: 0.03 ng/mL: Represents the 99th [...] consensus document of the Joint Society of Cardiology/[place] [employer] Committee for the redefinition of myocardial infarction. ? ?Journal of the [place] [employer] 2000; 36: 959-969] CK, Total 64 0 - 160 unit/L [facility] Specimen Anatomical Collection Method Collection Time Receive d Time (Source) Location / / Volume Laterality Blood specimen 01/16/2017 9:45 PM 017 9:54 (specimen) EDT PM EDT Resulting Agency Comment Spec In Lab Jabari Sanchezconnie OLIVAS CHEMISTRY ORDERABLES Performing Organization Address City/State/[place] [address] (ABNORMAL) Basic Metabolic Panel (non-fasting) (01/16/2017 9:45 PM EDT) athologist Signature Glucose Lvl 87 65 - 199 [facility] mg/dL [facility] Comment: Diabetes: >=200 mg/dL plus symp toms BUN 124 (H) 8 - 18 mg/dL [facility] Creatinine 6.30 (H) 0.70 - 1.20 mg/dL [facility] Comment: Please note that the pediatric reference intervals supplied above were not validated at [facility]. Results from pediatri c patients should be interpreted in conjunction to the patient's age, height and muscle mass. Sodium 127 (L) 135 - 145 mmol/L [facility] Comment: Result rechecked. Potassium 5.4 (H) 3.5 - 5.0 mmol/L [facility] Comment: Please note: ??Patients with WBC >100,00 0 may have falsely elevated Potassium levels. ??For accurate Potassium quantif ication in these patients send serum separator tube (gold top) for subsequent determinations. ??Contact the Clinical Chemistry Laboratory if there are any qu estions. Chloride 88 (L) 98 - 107 mmol/L [facility] CO2 20 (L) 22 - 31 mmol/L [facility] Anion Gap 19 (H) 5 - 15 mmol/L [facility] Calcium 7.2 (L) 8.5 - 10.5 mg/dL [facility] Estimated GFR 7 (L) >=60 [facility] Comment: This estimated GFR (eGFR) value [...] the following links into your internet browser. [email or web address] Specimen Anatomical Collection Method Collection Time Receive d Time (Source) Location / / Volume Laterality Blood specimen 01/16/2017 9:45 PM 017 9:54 (specimen) EDT PM EDT Resulting Agency Comment Spec In Lab Jabari Connors DEISY CHEMISTRY ORDERABLES Performing Organization Address City/State/[place] [address] (ABNORMAL) APTT (01/16/2017 9:45 PM EDT) athologist Signature PTT 38 (H) 25 - 35 sec [facility] Comment: The recommended therapeutic range for fu ll dose, unfractionated heparin at [facility] is 80 ? 114 seconds. The use [...] Resulting Agency Comment Spec In Lab Jabari Connosr APRN HEMATOLOGY ORDERABLES Performing Organization Address City/State/ZIP Code Phon e Number [address] (ABNORMAL) Prothrombin Time (01/16/2017 9:45 PM EDT) athologist Signature PT 15.4 (H) 12.0 - 15.0 [facility] Comment: An INR <2.0 indicates [...] circumstances. INR 1.2 (H) 0.9 - 1.1 [facility] Specimen Anatomical Collection Method Collection Time Receive d Time (Source) Location / / Volume Laterality Blood specimen 01/16/2017 9:45 PM 017 9:58 (specimen) EDT PM EDT Resulting Agency Comment Spec In Lab Jabari Connors APRN HEMATOLOGY ORDERABLES Performing Organization Address City/[facility]/[place] [address] POCT Glucose (01/16/2017 9:20 PM EDT) athologist Signature POC Glucose 96 65 - 199 [facility] mg/dL [facility] Comment: Supplemental ranges: <140 mg/dL before meals <180 mg/dL all other times of the day Specimen Anatomical Collection Method Collection Time Receive d Time (Source) Location / / Volume Laterality Blood specimen 01/16/2017 9:20 PM 017 9:20 (specimen) EDT PM EDT Alvaro Law MD POINT OF CARE TEST ORDERABLE S Performing Organization Address City/State/[place] [address] Blood culture (01/16/2017 9:20 PM EDT) Patholo gist Method Time Signature Blood Culture No growth [facility] at 5 days. [facility] Specimen Anatomical Collection Method Collection Time Receive d Time (Source) Location / / Volume Laterality Blood specimen 01/16/2017 9:20 PM 017 (specimen) EDT 10:06 PM EDT Resulting Agency Comment Spec In Lab Alvaro Law MD MICROBIOLOGY - BLOOD ORDERAB LES Performing Organization Address City/State/[place] [address] (ABNORMAL) BLOOD GAS 2 ARTERIAL (01/16/2017 9:19 PM EDT) Analysis Performed At Patho logist Time Signature pH Art 7.38 7.35 - [facility] 7.45 [facility] pCO2 Art 38 35 - 45 [facility] mmHg [facility] pO2 Art 78 (L) 85 - 104 [facility]ORY HCO3 Art 22.1 20.0 - [facility] 26.0 [facility] mmol/L [facility] BE Art -3.0 -3.0 - 3.0 [facility] mmol/L [facility] Hgb Blood Gas 10.8 (L) 11.7 - [facility] 15.5 gm/dL [facility] O2HB Art 93.7 (L) 94.0 - [facility] 97.0 % [facility] COHB Art 0.3 % [facility] Comment: Nonsmokers: 0.5-1.5% COHB Smokers: Variable, but usually less than 10% Toxic: 20-30% COHB Lethal: Greater than 60% COHB METHB Art 0.5 <=1.5 % [facility] Na Whole Blood 123 (L) 135 - 145 mmol/L [facility] K Whole Blood 5.2 (H) 3.5 - 5.0 mmol/L [facility] Comment: Please note: Patients with WBC >100,000 may have falsely elevated Potassium levels. Contact the Clinical Chemistry L aboratory if there are any questions. ICa Whole Blood 1.04 (L) 1.15 - 1.33 mmol/L [facility] Comment: Note: ??Total bilirubin higher than 20 m g/dL may lead to falsely low ionized calcium. CL Whole Blood 93 (L) 98 - 107 mmol/L [facility] Gluc Whole Bld 80 65 - 199 mg/dL [facility] Comment: Diabetes: >=200 mg/dL plus symp toms. Lactate WB 1.2 0.5 - 2.2 mmol/L [facility] Flow Art 2.0 LPM [facility] Specimen Anatomical Collection Method Collection Time Receive d Time (Source) Location / / Volume Laterality Blood specimen 01/16/2017 9:19 PM 017 9:19 (specimen) EDT PM EDT Alvaro Law MD CHEMISTRY ORDERABLES Performing Organization Address City/[facility] [place] [address] EKG 12 Lead (01/16/2017 5:19 PM EDT) Component Value Ref Range Test Analysis Performed Pathologis t Method Time At Signature Ventricular rate 67 BPM MUSE SYSTEM Atrial Rate 67 BPM MUSE SYSTEM P-R Interval 194 ms MUSE SYSTEM QRS Duration 100 ms MUSE SYSTEM Q-T Interval 430 ms MUSE SYSTEM QTC Calculated 454 ms MUSE SYSTEM (Bezet) Calculated P [place] 63 degrees MUSE SYSTEM Calculated R [place] 52 degrees MUSE SYSTEM Calculated T [place] 14 degrees MUSE SYSTEM INTERPRETATION Normal sinus rhythm MUSE SYSTEM Normal ECG When compared with ECG of 16-JAN-2017 04:37, No significant change was found Confirmed by MD Key Gregory A. ([id number]) on 01/17/2017 6: 47:41 PM Specimen Anatomical Collection Method Collection Time Receive d Time (Source) Location / / Volume Laterality 01/16/2017 5:19 PM 7 6:47 EDT PM EDT Kyler Deluna MD ECG ORDERABLES Performing Organization Address City/[facility]/ZIP Code Phon e Number MUSE SYSTEM POCT Glucose (01/16/2017 5:15 PM EDT) P athologist Signature POC Glucose 100 65 - 199 [facility] mg/dL [facility] Comment: Supplemental ranges: <140 mg/dL before meals <180 mg/dL all other times of the day Specimen Anatomical Collection Method Collection Time Receive d Time (Source) Location / / Volume Laterality Blood specimen 01/16/2017 5:15 PM 017 5:15 (specimen) EDT PM EDT Alvaro Law MD POINT OF CARE TEST ORDERABLE S Performing Organization Address City/State/ZIP Code Phon e Number [place] [id number] (ABNORMAL) Hemogram (01/16/2017 2:55 PM EDT) Analysis Performed At Patho logist Time Signature WBC 13.2 (H) 4.0 - 9.5 [facility] LABORATORY RBC 3.52 (L) 4.00 - [place] 5.21 [facility] x10(6)/[facility] LABORATORY Hemoglobin 10.1 (L) 11.7 - [facility] 15.5 gm/dL [facility] Hematocrit 29.3 (L) 35.7 - [facility] AJY 45.8 % [facility] MCV 83.2 [address].6 [facility] 94.4 [facility] LAB[facility]ATORY MCH 28.7 27.1 - [place] 32.0 pg [facility] MCHC 34.5 31.7 - [facility] JAY 35.0 gm/dL [facility] Platelets 223 145 - 357 [facility] x10(3)/[facility] LABORATORY RDWSD 43.3 37.0 - [facility] JAY 46.0 [facility] LABORATORY RDWCV 14.2 (H) 11.5 - [facility] JAY 14.1 % [facility] MPV 11.9 7.6 - 12.9 [facility] LABORATORY nRBC % Auto 0.0 % [facility] nRBC Abs Auto 0.000 0.000 - [facility] JAY 0.000 [facility] x10(3)/[facility] LABORATORY Specimen Anatomical Collection Method Collection Time Receive d Time (Source) Location / / Volume Laterality Blood specimen 01/16/2017 2:55 PM 017 3:10 (specimen) EDT PM EDT Resulting Agency Comment Spec In Lab Alvaro Law MD HEMATOLOGY ORDERABLES Performing Organization Address City/State/ZIP Code Phon e Number [facility] [place] [address] (ABNORMAL) Basic Metabolic Panel (non-fasting) (01/16/2017 2:55 PM EDT) P athologist Signature Glucose Lvl 98 65 - 199 [facility] mg/dL [facility] Comment: Diabetes: >=200 mg/dL plus symp toms BUN 132 (H) 8 - 18 mg/dL [facility] Creatinine 6.67 (H) 0.70 - 1.20 mg/dL [facility] Comment: Please note that the pediatric reference intervals supplied above were not validated at [facility]. Results from pediatri c patients should be interpreted in conjunction to the patient's age, height and muscle mass. Sodium 122 (L) 135 - 145 mmol/L [facility] Potassium 5.9 (H) 3.5 - 5.0 mmol/L [facility] Comment: Please note: ??Patients with WBC >100,00 0 may have falsely elevated Potassium levels. ??For accurate Potassium quantif ication in these patients send serum separator tube (gold top) for subsequent determinations. ??Contact the Clinical Chemistry Laboratory if there are any qu estions. Chloride 83 (L) 98 - 107 mmol/L [facility] CO2 21 (L) 22 - 31 mmol/L [facility] Anion Gap 18 (H) 5 - 15 mmol/L [facility] Calcium 8.0 (L) 8.5 - 10.5 mg/dL [facility] Estimated GFR 6 (L) >=60 [facility] Comment: This estimated GFR (eGFR) value [...] the following links into your internet browser. [email or web address] Specimen Anatomical Collection Method Collection Time Receive d Time (Source) Location / / Volume Laterality Blood specimen 01/16/2017 2:55 PM 017 3:10 (specimen) EDT PM EDT Resulting Agency Comment Spec In Lab Ramos Selene Kemp APRN CHEMISTRY ORDERABLES Performing Organization Address City/[facility]/[place] [address] Ab Comment (01/16/2017 1:50 PM EDT) Component Value Ref Test Analysis Performed At [facility] gist Range Method Time Signature Ab Information INTERPRETATION: A red cell a lloantibody, anti-K, was identified in the patient [place] specimen. ??This antibody can cause red cell hemolysis. Fu ture units for JAY transfusion will be negative for the K antigen and medical microbiologist ss-match compatible at [facility] the antiglobulin phase. ?? sobeida additional steps [...] specimen Other / Unknown 01/16/2017 1:50 PM 11/2016 1:50 (specimen) EDT PM EDT Resulting Agency Comment Spec In Lab Nakul Garland MD BLOOD BANK ORDERABLES Performing Organization Address City/[facility]/ZIP Code Phon e Number [address] Antibody identification (01/16/2017 1:50 PM EDT) Analysis Performed At Path logist Time Signature Ab Identified Anti-Bga [facility] Specimen Anatomical Collection Method Collection Time Receive d Time (Source) Location / / Volume Laterality Blood specimen Other / Unknown 01/16/2017 1:50 PM 060 11/2016 1:50 (specimen) EDT PM EDT Resulting Agency Comment Spec In Lab Nakul Garland MD BLOOD BANK ORDERABLES Performing Organization Address City/[facility]/ZIP Code Phon e Number [address] (ABNORMAL) Urine culture (01/16/2017 12:00 PM EDT) Patholo Jampp Method Time Signature Urine Culture Greater than [facility] K 100,000 [facility] cfu/ml [facility] Missy LABORATORY albicans (A) Organism Missy [facility] albicans (A) [facility] Specimen (Source) Anatomical Collection Method Collection Time Re ceived Time Location / / Volume Laterality Urine specimen 01/16/2017 12:00 7 obtained by clean PM EDT 12:36 PM E DT catch procedure (specimen) Resulting Agency Comment Spec In Lab Nakul Garland MD MICROBIOLOGY - GENERAL ORDER MARY Performing Organization Address City/[facility]/ZIP Code Phon e Number [address] Urine Hold (01/16/2017 12:00 PM EDT) P athologist Signature Urine Hold Sample in [facility]. [facility] Specimen Anatomical Collection Method Collection Time Receive d Time (Source) Location / / Volume Laterality Urine specimen Urine / Unknown 01/16/2017 12:00 2016 (specimen) PM EDT 12:01 PM EDT Nakul Garland MD URINE ORDERABLES Performing Organization Address City/[facility]/ZIP [facility] [place] [address] (ABNORMAL) Urinalysis with reflex Culture (01/16/2017 12:00 PM EDT) [facility] Jampp Method Time Signature Glucose UA Negative Negative [facility] mg/dL [facility] Protein UA 100 (A) Negative [facility] mg/dL [facility] Bilirubin UA Negative Negative [facility] mg/dL [facility] Comment: Clinical correlation required for positi ve Urine Bilirubin results as false positive may occur with some drugs and d rug related products. If a false positive is suspected a serum total bili armas should be considered if clinically indicated. Urobilinogen UA Normal Normal mg/dL [facility] pH UA 5.0 5.0 - 8.0 [facility] Blood UA Large (A) Negative mg/dL [facility] Ketones UA Negative Negative mg/dL [facility] Nitrite UA Negative Negative [facility] Leukocytes UA Moderate (A) Negative mcL [facility] Appearance UA Turbid (A) Clear [facility] Spec [place] UA 1.019 1.002 - 1.030 [facility] Color UA Red Yellow [facility] RBC UA >182 0 - 4 /HPF [facility] Comment: Corrected from Not Present /HPF [NA] on 01/16/17 12:24 by Ami David WBC UA >182 0 - 5 /HPF [facility] Comment: Corrected from Not Present /HPF [NA] on 01/16/17 12:24 by Ami David WBCs Clumping Occasional (A) None /HPF [facility] Bacteria UA Moderate (A) None /HPF [facility] Yeast Hyph UA Few (A) None /HPF [facility] Trans Epith UA 2 (H) <=1 /HPF [facility] Renal Epith UA 1 (H) <=0 /HPF [facility] Culture Reflexed Yes [facility] Specimen (Source) Anatomical Collection Method Collection Time Re ceived Time Location / / Volume Laterality Urine specimen 01/16/2017 12:00 7 obtained by clean PM EDT 12:01 PM E DT catch procedure (specimen) Resulting Agency Comment Spec In Lab Nakul Garland MD URINE ORDERABLES Performing Organization Address City/State/[place] [address] (ABNORMAL) Basic Metabolic Panel (non-fasting) (01/16/2017 10:06 AM EDT) athologist Signature Glucose Lvl 97 65 - 199 [facility] mg/dL [facility] Comment: Diabetes: >=200 mg/dL plus symp toms BUN 132 (H) 8 - 18 mg/dL [facility] Creatinine 6.51 (H) 0.70 - 1.20 mg/dL [facility] Comment: Please note that the pediatric reference intervals supplied above were not validated at [facility]. Results from pediatri c patients should be interpreted in conjunction to the patient's age, height and muscle mass. Sodium 123 (L) 135 - 145 mmol/L [facility] Potassium 6.3 (Critical) 3.5 - 5.0 mmol/L [facility] Comment: called by/read back by (full name)/date- time Lj Jennings: 01/16/17 1042 Please note: ??Patients with WBC >100,00 0 may have falsely elevated Potassium levels. ??For accurate Potassium quantif ication in these patients send serum separator tube (gold top) for subsequent determinations. ??Contact the Clinical Chemistry Laboratory if there are any qu estions. Chloride 83 (L) 98 - 107 mmol/L [facility] CO2 23 22 - 31 mmol/L [facility] Anion Gap 17 (H) 5 - 15 mmol/L [facility] Calcium 8.3 (L) 8.5 - 10.5 mg/dL [facility] Estimated GFR 7 (L) >=60 [facility] Comment: This estimated GFR (eGFR) value [...] the following links into your internet browser. [email or web address] Specimen Anatomical Collection Method Collection Time Receive d Time (Source) Location / / Volume Laterality Blood specimen 01/16/2017 10:06 7 (specimen) AM EDT 10:13 AM EDT Resulting Agency Comment Spec In Lab Ramos Kemp APRN CHEMISTRY ORDERABLES Performing Organization Address City/State/ZIP Code Phon e Number [address] Ethanol Level (01/16/2017 10:06 AM EDT) P athologist Signature Ethanol Lvl <100 mg/L [facility] Comment: Greater than 800 mg/L (0.08%) [...] Garland MD CHEMISTRY ORDERABLES Performing Organization Address City/[facility]/[place] [address] Ethanol Level (01/16/2017 7:28 AM EDT) P athologist Signature Ethanol Lvl <100 mg/L [facility] Comment: Greater than 800 mg/L (0.08%) [...] Organization Address City/State/ZIP Code Phon e Number [address] (ABNORMAL) Acetaminophen level (01/16/2017 7:28 AM EDT) athologist Signature Acetamin Lvl <5 (L) 10 - 30 [facility] mg/L [facility] Comment: Levels >150 mg/L at 4 [...] Garland MD CHEMISTRY ORDERABLES Performing Organization Address City/[facility] Phon e Number [address] Salicylate (01/16/2017 7:28 AM EDT) athologist Signature Salicylate Lvl <20 mg/L [facility] Comment: Therapeutic Range: ??< 200 mg/L [...] Garland MD CHEMISTRY ORDERABLES Performing Organization Address City/[facility]/ZIP Code Phon e Number [address] Chloride, urine, random (01/16/2017 6:16 AM EDT) athologist Signature U Chloride <20 mmol/L [facility] Specimen Anatomical Collection Method Collection Time Receive d Time (Source) Location / / Volume Laterality Urine specimen Urine / Unknown 01/16/2017 6:16 AM 11/2016 6:25 (specimen) EDT AM EDT Resulting Agency Comment Spec In Lab Nakul Garland MD URINE ORDERABLES Performing Organization Address City/[facility]/ZIP Code Phon e Number [address] Potassium, urine, random (01/16/2017 6:16 AM EDT) athologist Signature U Potassium 79 mmol/L [facility] Specimen Anatomical Collection Method Collection Time Receive d Time (Source) Location / / Volume Laterality Urine specimen Urine / Unknown 01/16/2017 6:16 AM 060 11/2016 6:25 (specimen) EDT AM EDT Resulting Agency Comment Spec In Lab Nakul Garland MD URINE ORDERABLES Performing Organization Address City/[facility]/ZIP Code Phon e Number [address] Osmolality, urine, random (01/16/2017 6:16 AM EDT) athologist Signature U Osmolality 319 50 - 1,200 [facility] mOsm/kg [facility] Specimen Anatomical Collection Method Collection Time Receive d Time (Source) Location / / Volume Laterality Urine specimen 01/16/2017 6:16 AM 017 6:25 (specimen) EDT AM EDT Resulting Agency Comment Spec In Lab Nakul Garland MD URINE ORDERABLES Performing Organization Address City/[facility]/[place] [address] Creatinine, urine, random (01/16/2017 6:16 AM EDT) athologist Signature U Creatinine 140 mg/dL [facility] Specimen Anatomical Collection Method Collection Time Receive d Time (Source) Location / / Volume Laterality Urine specimen 01/16/2017 6:16 AM 017 6:25 (specimen) EDT AM EDT Resulting Agency Comment Spec In Lab Nakul Garland MD URINE ORDERABLES Performing Organization Address City/[facility]/[place] [address] Urea nitrogen, urine, random (01/16/2017 6:16 AM EDT) athologist Signature U Urea 258 mg/dL [facility] LABORATORY Specimen Anatomical Collection Method Collection Time Receive d Time (Source) Location / / Volume Laterality Urine specimen 01/16/2017 6:16 AM 017 6:25 (specimen) EDT AM EDT Resulting Agency Comment Spec In Lab Nakul Garland MD URINE ORDERABLES Performing Organization Address [facility]/ZIP [facility] [address] Sodium, urine, random (01/16/2017 6:16 AM EDT) athologist Signature U Sodium 25 mmol/L [facility] [facility] Specimen Anatomical Collection Method Collection Time Receive d Time (Source) Location / / Volume Laterality Urine specimen 01/16/2017 6:16 AM 017 6:25 (specimen) EDT AM EDT Resulting Agency Comment Spec In Lab Nakul Garland MD URINE ORDERABLES Performing Organization Address [facility] Code Phon e Number [address] EKG 12 Lead (01/16/2017 4:37 AM EDT) [facility] gist Method Time Signature Ventricular rate 69 BPM MUSE SYSTEM Atrial Rate 69 BPM MUSE SYSTEM P-R Interval 168 ms MUSE SYSTEM QRS Duration 100 ms MUSE SYSTEM Q-T Interval 400 ms MUSE SYSTEM QTC Calculated 428 ms MUSE SYSTEM (Bezet) Calculated P [place] 71 degrees MUSE SYSTEM Calculated R [place] 66 degrees MUSE SYSTEM Calculated T [place] 15 degrees MUSE SYSTEM INTERPRETATION Normal sinus [...] Garland MD ECG ORDERABLES Performing Organization Address City/[facility]/ZIP Code Phon e Number MUSE SYSTEM pro-Brain Natriuretic Peptide (01/16/2017 3:32 AM EDT) P athologist Signature ProBNP 115 <=125 pg/mL [facility] Specimen Anatomical Collection Method Collection Time Receive d Time (Source) Location / / Volume Laterality Blood specimen Venous Draw / 01/16/2017 3:32 AM 2016 8:03 (specimen) Unknown EDT AM EDT Resulting Agency Comment Spec In Lab Nakul Garland MD CHEMISTRY ORDERABLES Performing Organization Address City/[facility]/ZIP Code Phon e Number [address] Triglyceride (01/16/2017 3:32 AM EDT) athologist Signature Triglycerides 113 <=199 [facility] mg/dL [facility] Specimen Anatomical Collection Method Collection Time Receive d Time (Source) Location / / Volume Laterality Blood specimen Venous Draw / 01/16/2017 3:32 AM 2016 3:39 (specimen) Unknown EDT AM EDT Resulting Agency Comment Spec In Lab Nakul Garland MD CHEMISTRY ORDERABLES Performing Organization Address City/[facility]/ZIP Code Phon e Number [address] (ABNORMAL) Osmolality (01/16/2017 3:32 AM EDT) athologist [facility] Osmolality 303 (H) 275 - 295 [facility] mOsm/kg [facility] Specimen Anatomical Collection Method Collection Time Receive d Time (Source) Location / / Volume Laterality Blood specimen Venous Draw / 01/16/2017 3:32 AM 2016 3:39 (specimen) Unknown EDT AM EDT Resulting Agency Comment Spec In Lab Nakul Garland MD CHEMISTRY ORDERABLES Performing Organization Address City/[facility]/ZIP Code Phon e Number [address] ABORH Recheck Status (01/16/2017 3:32 AM EDT) Patholo gist Method Time Signature ABORH Type Completed [facility] LABORATORY Specimen Anatomical Collection Method Collection Time Receive d Time (Source) Location / / Volume Laterality Blood specimen Venous Draw / 01/16/2017 3:32 AM 2016 3:55 (specimen) Unknown EDT AM EDT Resulting Agency Comment Spec In Lab Nakul Garland MD BLOOD BANK ORDERABLES Performing Organization Address City/[facility]/ZIP Code Phon e Number [address] Scan, Peripheral Blood (01/16/2017 3:32 AM EDT) P athologist Signature Plat Estimate Normal [facility] RBC Morphology Normal [facility] [place] Specimen Anatomical Collection Method Collection Time Receive d Time (Source) Location / / Volume Laterality Blood specimen 01/16/2017 3:32 AM 017 3:37 (specimen) EDT AM EDT Resulting Agency Comment Spec In Lab Nakul Garland MD HEMATOLOGY ORDERABLES Performing Organization Address City/[facility]/ZIP Code Phon e Number [address] Selected Cell Screen (01/16/2017 3:32 AM EDT) Component Value Ref Test Analysis Performed At [facility] Jampp Range Method Time Signature Ab Screen Previously identified [...] MD BLOOD BANK ORDERABLES Performing Organization Address City/[facility]/ZIP Code Phon e Number [address] ABORh Type Manual (01/16/2017 3:32 AM EDT) [facility] Jampp Method Time Signature Expires at 01/19/2017 [place] 2359 on: [facility] ABORh Type O Pos [facility] Specimen Anatomical Collection Method Collection Time Receive d Time (Source) Location / / Volume Laterality Blood specimen Venous Draw / 01/16/2017 3:32 AM 2016 3:55 (specimen) Unknown EDT AM EDT Resulting Agency Comment Spec In Lab Nakul Garland MD BLOOD BANK ORDERABLES Performing Organization Address City/State/[place] [address] (ABNORMAL) Differential, Automated (01/16/2017 3:32 AM EDT) [facility] Method Time Signature Neutrophils % 70.1 % [facility] Neutr Abs (ANC) 10.29 (H) 1.70 - [facility] 6.10 [facility] x10(3)/[facility] LABORATORY Lymphocytes % 16.6 % [facility] Lymphocytes Abs 2.4 0.9 - 3.2 [facility] x10(3)/[facility] LABORATORY Monocytes % 11.5 % [facility] Monocyte Abs 1.7 (H) 0.3 - 0.9 [facility] x10(3)/[facility] LABORATORY Eosinophils % 0.7 % [facility] Eosinophils Abs 0.1 0.0 - 0.4 [facility] x10(3)/[facility] LABORATORY Basophils % 0.1 % [facility] Basophils Abs 0.0 0.0 - 0.1 [facility] x10(3)/[facility] LABORATORY Immature Gran % 1.00 % [facility] Comment: Immature granulocytes(IG's)percentage an d absolute count will include metamyelocytes, myelocytes, and promyelo cytes. Blood smears from CBCs yielding IG's will be scanned manually for concor dance. If this scan disagrees with the automated IG or if promyelocytes are not ed, a manual differential will be performed. Surekha Gran Abs 0.14 (H) 0.00 - 0.04 x10(3)/[facility] LABORATORY Specimen Anatomical Collection Method Collection Time Receive d Time (Source) Location / / Volume Laterality Blood specimen 01/16/2017 3:32 AM 017 3:37 (specimen) EDT AM EDT Resulting Agency Comment Spec In Lab Nakul Garland MD HEMATOLOGY ORDERABLES Performing Organization Address City/State/[place] [address] (ABNORMAL) Hemogram (01/16/2017 3:32 AM EDT) Analysis Performed At Patho logist Time Signature WBC 14.7 (H) 4.0 - 9.5 [facility](3[facility] LABORATORY RBC 3.86 (L) 4.00 - [place] 5.21 [facility] x10(6)/[facility] LABORATORY Hemoglobin 11.1 (L) 11.7 - [facility] 15.5 gm/dL [facility] Hematocrit 32.1 (L) 35.7 - [facility] 45.8 % [facility] MCV 83.2 82.6 - [facility] 94.4 [facility] LABORATORY MCH 28.8 27.1 - [place] 32.0 pg [facility]ORAT[facility] MCHC 34.6 31.7 - [facility] 35.0 gm/dL [facility] Platelets 227 145 - 357 [facility] x10(3)/[facility] LABORATORY RDWSD 43.[address] [facility] 46.0 [facility] LABORATORY RDWCV 14.2 (H) 11.5 - [facility] 14.1 % [facility] MPV 11.7 7.6 - 12.9 [facility] LABORATORY nRBC % Auto 0.0 % [facility] nRBC Abs Auto 0.000 0.000 - [facility] 0.000 [facility] x10(3)/[facility] LABORATORY Specimen Anatomical Collection Method Collection Time Receive d Time (Source) Location / / Volume Laterality Blood specimen 01/16/2017 3:32 AM 017 3:37 (specimen) EDT AM EDT Resulting Agency Comment Spec In Lab Nakul Garland MD HEMATOLOGY ORDERABLES Performing Organization Address City/State/[place] [address] (ABNORMAL) APTT (01/16/2017 3:32 AM EDT) P athologist Signature PTT 50 (H) 25 - 35 sec [facility] Comment: The recommended therapeutic range for fu ll dose, unfractionated heparin at [facility] is 80 ? 114 seconds. The use [...] Garland MD HEMATOLOGY ORDERABLES Performing Organization Address [facility] [place] [address] (ABNORMAL) Prothrombin Time (01/16/2017 3:32 AM EDT) athologist Signature PT 15.7 (H) 12.0 - 15.0 [facility] LABORATORY Comment: An INR <2.0 indicates [...] circumstances. INR 1.2 (H) 0.9 - 1.1 [facility]ORATORY Specimen Anatomical Collection Method Collection Time Receive d Time (Source) Location / / Volume Laterality Blood specimen 01/16/2017 3:32 AM 017 3:37 (specimen) EDT AM EDT Resulting Agency Comment Spec In Lab Nakul Garland MD HEMATOLOGY ORDERABLES Performing Organization Address [facility] [place] [address] (ABNORMAL) Hepatic Function Panel (01/16/2017 3:32 AM EDT) athologist Signature Total Protein 5.9 (L) 6.1 - 8.0 [facility] gm/dL [facility] Albumin 2.9 (L) 3.2 - 5.2 [place] [place] gm/dL [facility] AST 19 0 - 30 [place] unit/L [facility] ALT 30 0 - 30 [facility] unit/L [facility] Alk Phos 56 40 - 104 [facility] unit/L [facility] Total 0.7 0.2 - 1.3 [facility] [place] Bilirubin mg/dL [facility] Bili, Direct 0.1 0.0 - 0.3 [facility] mg/dL [facility] Specimen Anatomical Collection Method Collection Time Receive d Time (Source) Location / / Volume Laterality Blood specimen 01/16/2017 3:32 AM 017 3:37 (specimen) EDT AM EDT Resulting Agency Comment Spec In Lab Nakul Garland MD CHEMISTRY ORDERABLES Performing Organization Address City/[facility] Code Phon e Number [address] (ABNORMAL) Phosphorus (01/16/2017 3:32 AM EDT) P athologist Signature Phosphorus 5.1 (H) 2.5 - 4.5 [facility] mg/dL [facility] Specimen Anatomical Collection Method Collection Time Receive d Time (Source) Location / / Volume Laterality Blood specimen 01/16/2017 3:32 AM 017 3:37 (specimen) EDT AM EDT Resulting Agency Comment Spec In Lab Nakul Garland MD CHEMISTRY ORDERABLES Performing Organization Address City/[facility]/[place] [address] (ABNORMAL) Magnesium (01/16/2017 3:32 AM EDT) P athologist Signature Magnesium 1.08 (H) 0.69 - 1.07 [place] mmol/L [facility] Specimen Anatomical Collection Method Collection Time Receive d Time (Source) Location / / Volume Laterality Blood specimen 01/16/2017 3:32 AM 017 3:37 (specimen) EDT AM EDT Resulting Agency Comment Spec In Lab Nakul Garland MD CHEMISTRY ORDERABLES Performing Organization Address City/[facility]/[place] [address] (ABNORMAL) Basic Metabolic Panel (non-fasting) (01/16/2017 3:32 AM EDT) P athologist Signature Glucose Lvl 114 65 - 199 [facility] mg/dL [facility] Comment: Diabetes: >=200 mg/dL plus symp toms BUN 130 (H) 8 - 18 mg/dL [facility] Comment: result rechecked-shayla Creatinine 5.99 (H) 0.70 - 1.20 mg/dL [facility] Comment: Please note that the pediatric reference intervals supplied above were not validated at [facility]. Results from pediatri c patients should be interpreted in conjunction to the patient's age, height and muscle mass. Sodium 119 (Critical) 135 - 145 mmol/L [facility] Comment: Result rechecked. Called by: shayla, Read back by: сергей colunga , Date/Time:01/16/17 04:20. Potassium 5.9 (H) 3.5 - 5.0 mmol/L [facility] Comment: Please note: ??Patients with WBC >100,00 0 may have falsely elevated Potassium levels. ??For accurate Potassium quantif ication in these patients send serum separator tube (gold top) for subsequent determinations. ??Contact the Clinical Chemistry Laboratory if there are any qu estions. Chloride 81 (L) 98 - 107 mmol/L [facility] CO2 24 22 - 31 mmol/L [facility] Anion Gap 14 5 - 15 mmol/L [facility] Calcium 8.6 8.5 - 10.5 mg/dL [facility] Estimated GFR 7 (L) >=60 [facility] Comment: This estimated GFR (eGFR) value [...] the following links into your internet browser. [email or web address] Specimen Anatomical Collection Method Collection Time Receive d Time (Source) Location / / Volume Laterality Blood specimen 01/16/2017 3:32 AM 017 3:37 (specimen) EDT AM EDT Resulting Agency Comment Spec In Lab Nakul Garland MD CHEMISTRY ORDERABLES Performing Organization Address City/[facility]/[place] [address] Film Library- Storage Only CT Chest (01/10/2017 12:00 AM EDT) Specimen (Source) Anatomical Location Collection Method / Collectio n Time Received Time / Laterality Volume Narrative [facility] - 01/16/2017 12:30 PM EDT This exam is for storage only and is aut o-finalizing. Nakul Garland MD IMG FILM LIBRARY ORDERABLES Performing Organization Address City/[facility]/ZIP Code Phon e Number [place], [place] documented in this encounter Visit Diagnoses [...] 2 g, Intravenous, ONCE, 1 dose, On Tue01/20/17 at 1900, Administer over 120 Minutes multivitamin [...] mcg/mL) infusion Soln 1 dose, Starting on Tue01/16/17 at 2044, Until Tue01/16/17 at 2100, SKY DRADEN: cabinet override piperacillin-tazobactam (ZOSYN) Given 01/17/2017 1:57 [...] s pray 1130 (Given - Provider: Azucena Mudrock RN) 0831 (Given - Provider: Jackie Fleming, OZ) 0821 (Given - Provider: Heidi Estrada, OZ) 1 spray, Each Nare, DAILY, First dose on Tue01/16/17 at 0900, Until Discontinued, Routine heparin (porcine) subcutaneous injection 8,000 Units ( CANCELED) 0603 (Given - Provider: Denisse Grider RN)1410 (Given - Provider: Azucena Murdock RN)210 (Given - Provider: Olga Anna, OZ) 0523 (Given - Provider: Olga Anna, OZ) 8,000 Units, Subcutaneous, EVERY 8 HOURS SCHEDULED, First dose on Tue01/17/17 at 1615, Until Discontinued, Routine insulin lispro (humaLOG) VIAL injection 1-4 Units (CAN CELED) 0009 (Given - Provider: Denisse Grider RN)0400 (Not Given - Provider: Denisse Grider, RN - Reason: Order parameters not met)0917 [...] 1 dose, Ericka 01/20/17 at 1900, Ad web content developer over 120 Minutes multivitamin (THERAGRAN) tablet 1 tablet 0820 (Given - Provider: Heidi Estrada, OZ) 1 tablet, Oral, DAILY, First dose on Tue01/21/17 at 0900, Until Discontinued, Routine piperacillin-tazobactam (ZOSYN) 4.5 g vi al attach to sodium chloride 0.9% 100 mL Mini-Bag Plus (CANCELED) 0603 (Given - Provider: Denisse Grider , RN)1411 (Given - Provider: Azucena Murdock, OZ) 4.5 g, Intravenous, EVERY 8 HOURS, 21 do ses, First dose on Tue01/17/17 at 2200, Last dose on Tue01/24/17 at 1400, Administer over 4 Hours, Warning Vesicant/Irritant Medication , Indication for (Active or Suspected): Urinary Tract/Pyelonephritis potassium, sodium phosphates (NEUTRA-PHOS) 280-160-250 mg oral packet 3 g 1700 (Not Given - Provider: Martha Ontiveros RN - Reason: Medication not available)2043 (Given - Provider: Olga Anna, OZ) 0836 (Given - Provider: Jackie Fleming RN)1154 (Given - Provider: Jackie Fleming, OZ)1723 (Given - Provider: Jackie Fleming, OZ)2030 (Given - Provider: Esther Colon RN) 0824 (Given - Provider: Heidi Estrada RN)1146 (Given - Provider: Heidi Estrada, OZ)1702 (Given [...] Fleming, OZ) 0245 (Given - Provider: Esther Colon, OZ)1500 (Given - Provider: Heidi Estrada RN) 5 mL, Intravenous, EVERY 12 HOURS, First dose on Tue01/16/17 at 0245, Until Discontinued, Routine sodium chloride 0.9 % flush 5 mL 1045 (Given - Provide r: Azucena Murdock RN)2109 (Given - Provider: Olga Anna RN) 0917 (Given - Provider: Jackie Fleming, OZ)2105 (Given - Provider: Esther Colon, OZ) 0958 [...] Grider RN)0800 (Rate/Dose Change - Provider: Azucena Murdock RN)1000 (Stopped - Provider: Azucena Murdock RN) mmHg. [...] at 4.8 mL/hr , Intravenous, CONTINUOUS, Starting Tue01/18/17 at 1630, Until Tue01/19/17 at 0720, DO NOT TITRATE. Do not exceed 0.04 units/min PRN Medication Order 01/19/2017 01/20/2017 01/21/2017 acetaminophen (TYLENOL) tablet 650 mg 650 mg, Oral, EVERY 6 HOURS PRN, Startin g 01/16/17 at 0227, Until Tue01/21/17 at 2014, Pain, Fever, Administer [...] mL), Subcutaneous, ONCE PRN, 1 dose, Starting 01/16/17 at 022, Until Tue01/21/17 at 2014, for discomfort with PIV insertion, Routine lidocaine (XYLOCAINE) 10 mg/mL (1 %) injection 3 mg 3 mg (0.3 mL), Subcutaneous, ONCE PRN, 1 dose, Starting Tue01/16/17 at 2137, Until Tue01/21/17 at 2014, for discomfort with PIV insertion, Routine melatonin tablet 3-6 mg 3-6 mg, Oral, NIGHTLY PRN, Starting 01/16/17 at 226, Until Tue01/21/17 at 2014, sleep, Start with 3 mg dose. May repeat 3 mg dose if patient still not able to sleep and can subsequently use 6 mg dose nightly from there on., Routine polyethylene glycol (MIRALAX) packet 17 g 17 g, Oral, DAILY PRN, Starting Sun at 022, Until Tue01/21/17 at 2014, Constipation, Use if [...] Routine documented in this encounter Care Teams Big Data Analytics Lead Relationship Specialty Start Date End Date Alphonso Murphy MD PCP - General Family Medicine 02/19/[address] [place] [address] documented as of this encounter
--- OUTSIDE RECORDS SUMMARY | 2022-04-21 10:54 | XMS_ITS | Encounter Summary ---
:1955 Author Organization [facility] [place] [address] Care Team Providers Name Role Phone Sunitha Milligan MD Primary Care Provider Reason for Visit Reason Comments URI Encounter Details Date Type Department Care Team Description 12/17/2013 Emergency Emergency Department Sue Michael, DEISY [facility] [place] [address] Acute URI [facility] Devin Groves MD [facility] [place] [address] [facility] [place] [address] Social History Tobacco Use Types Packs/Day [...] from the original note were not included. [facility] Upper Respiratory Infection (Cold): After Your Child's [...] ?? Be careful when giving your child krfe-wje-tttfqfx cold or flu medicines and Tylenol at [...] more? Visit our health information library at [email or web address] You can also view health information on CONSTRVCT, your personal patient account. Log in or sign up today. Enter M207 in the search box to learn more about Upper Respiratory Infection (Cold): After Your Child's Visit. ?? [id number] [employer]. Care instructions adapted under license by [facility]. This care instruction is for use with your licensed healthcare professional. If you have questionsabout a medical condition or this instruction, always ask your healthcare professional. [employer] disclaims any warranty or liability for your use of this information. Content Version: [id number]; Last Revised: February 09, 2012 [facility] Upper Respiratory Infection (Cold): After Your Visit [...] include drinking lots of fluids and taking njgx-yqb-kldmmtz pain medicine. You will probably feel better [...] of fluids you drink. ?? Take an ewgx-shr-qwfonmu pain medicine, such as acetaminophen (Tylenol), ibuprofen [...] health problems. ?? Be careful when taking igve-jbz-xjhffrv cold or flu medicines and Tylenol at [...] more? Visit our health information library at [email or web address] You can also view health information on CONSTRVCT, your personal patient account. Log in or sign up today. Enter K520 in the search box to learn more about Upper Respiratory Infection (Cold): After Your Visit. ?? [phone] [employer], [employer]. Care instructions adapted under license by [facility]. This care instruction is for use with your licensed healthcare professional. If you have questionsabout a medical condition or this instruction, always ask your healthcare professional. [employer] disclaims any warranty or liability for your use of this information. Content Version: [id number]; Last Revised: December 06, 2011 documented in [...] of this encounter ED Notes Sue Anguiano, ACCOUNT EXECUTIVE KEY ACCOUNTS - 12/17/2013 6:35 PM EDT S. 58 yo woman here with one day history of cough, runny nose, headache, feeling tired. She is staying with her disabled son while he is a patient on [facility]. No fever or stiff neck. No SOB or dyspnea. Stopped smoking 3 years ago. Son has shunt malfunction with pneumonia. [facility] are from [facility]. She is hoping he will be [...] Active and Recently Administered Medications Care Teams Lab Support Tech Relationship Specialty Start Date End Date Sunitha Milligan MD PCP - General 07/07/10 02/18/16 [address] [place] [address] documented as of this encounter
--- OUTSIDE RECORDS SUMMARY | 2022-04-21 10:54 | XMS_ITS | Encounter Summary ---
:1955 Author Organization [facility] [place] [place] [address] Care Team Providers Name Role Phone Sunitha Milligan MD Primary Care Provider Encounter Details Date Type Department Care Team Description 06/11/2014 Orders Only Radiology Mendy Talbot, Pleural effusion [facility] (Primary Dx) [place] [address] [address] [address] [phone] DIAGNOSTIC RADIOLOGY [place], [place] [address] Social History Tobacco Use Types Packs/Day Years Used Date Former Smoker Sex Assigned at Date Recorded Not on file documented as of this encounter Plan of Treatment Not on filedocumented as of this encounter Visit Diagnoses Diagnosis Pleural effusion - Primary Unspecified pleural effusion documented in this encounter Care Teams Casino Banker Relationship Specialty Start Date End Date Sunitha Milligan MD PCP - General 07/07/10 02/18/16 [address] [place], [place] [address] documented as of this encounter
--- OUTSIDE RECORDS SUMMARY | 2022-04-21 10:54 | XMS_ITS | Encounter Summary ---
:1955 Author Organization [facility] [place] [address] Care Team Providers Name Role Phone Sunitha Milligan MD Primary Care Provider Encounter Details Date Type Department Care Team Description 06/11/2014 Hospital Encounter Laboratory Luke Christianson, Pleural effusion on [facility] [address] DIAGNOSTIC [phone] [place] [address] Social History Tobacco Use Types Packs/Day Years [...] athologist Signature Platelets 251 145 - [address] [facility] x10(3)/[facility] Specimen Anatomical Collection Method Collection Time Receive d Time (Source) Location / / Volume Laterality Blood specimen 06/11/2014 11:26 4 (specimen) AM EDT 11:28 AM EDT Resulting Agency Comment Spec In Lab Luke Christianson MD HEMATOLOGY ORDERABLES Performing Organization Address City/State/[place] [address] [facility] documented in this encounter Visit Diagnoses Diagnosis Pleural effusion on right Unspecified pleural effusion documented in this encounter Care Teams Software Engineering Specialist Relationship Specialty Start Date End Date Sunitha Milligan MD PCP - General 07/07/10 02/18/16 [address] [place] [address] documented as of this encounter
--- OUTSIDE RECORDS SUMMARY | 2022-04-21 10:54 | XMS_ITS | Encounter Summary ---
:1955 Author Organization [place] [place] [address] Care Team Providers Name Role Phone Sunitha Milligan MD Primary Care Provider Reason for Visit Reason Comments Chest Pain Encounter Details Date Type Department Care Team Description 12/18/2013 Emergency Emergency Department Libby Mistry A cute exacerbation of Margy Barber MD [facility] [address] [facility] [place] [address] [place] [address] [phone] Social History Tobacco Use Types Packs/Day Years [...] or for any new and concerning symptoms. [facility] Chronic Obstructive Pulmonary Disease (COPD): After [...] properly. ?? Do not take any vitamins, lcrb-biz-ydwtydk medicine, or herbal products without talking to [...] ?? Take short rest breaks when doing geographic information scientist and other activities. ?? Learn breathing methods--such [...] more? Visit our health information library at [email or web address] You can also view health information on [employer], your personal patient account. Log in or sign up today. Enter X915 in the search box to learn more about Chronic Obstructive Pulmonary Disease (COPD): AfterYour Visit. ?? [id number] [employer]. Care instructions adapted under license by [facility]. This care instruction is for use with your licensed healthcare professional. If you have questionsabout a medical condition or this instruction, always ask your healthcare professional. [employer] disclaims any warranty or liability for your use of this information. Content Version: 9.9.358758; Last Revised: December 29, 2012 documented in [...] by MD, but those labs were reassuring egng-oqg-vuzd. ACS less likely to explain diffuse wheezing [...] 12/18/2013 1:25 PM Result s for this ([facility]) EDT procedure are i n the results [...] Organization Address City/State/ZIP Code Phon e Number [place] [phone] CERNER MILLENNIUM (ABNORMAL) Basic [...] intervals supplied above were not validated at [facility]. Results from pediatri c patients should be [...] Organization Address City/State/[place] [address] CERNER MILLENNIUM CBC (with [...] [facility]/ZIP Code Phon e Number [address] CERNER MILLENNIUM Cardiac Enzymes (12/18/2013 1:25 PM EDT) P athologist Signature Troponin-T <0.03 <=0.03 CERNER ng/mL [facility] Comment: 0.03 ng/mL: Represents the 99th percenti [...] consensus document of the Joint Society of Cardiology/Dutch College o f Cardiology Committee for the redefinition of myocardial infarction. ? ?Journal of the [place] College of Cardiology 2000; 36: 959-969] CK, Total 106 0 - 160 unit/L [facility] Specimen Anatomical Collection Method Collection Time Receive d Time (Source) Location / / Volume Laterality Blood specimen 12/18/2013 1:25 PM 014 1:40 (specimen) EDT PM EDT Resulting Agency Comment Spec In Lab Shahram Oscar Jr., MD CHEMISTRY ORDERABLES Performing Organization Address City/[facility]/ZIP Code Phon e Number [address] CERNER MILLENNIUM Blue Tube HOLD (12/18/2013 1:25 PM EDT) P athologist Signature Blue Hold [facility]. [facility] Specimen Anatomical Collection Method Collection Time Receive d Time (Source) Location / / Volume Laterality Blood specimen 12/18/2013 1:25 PM 05/06/2 014 1:40 (specimen) EDT PM EDT Shahram Oscar Jr., MD HEMATOLOGY ORDERABLES Performing Organization Address City/State/ZIP Code Phon e Number [place] [phone] [facility]RNAV [facility] EKG 12 Lead (12/18/2013 1:13 PM EDT) Component Value Ref Range Test Analysis Performed Pathologis t Method Time At Signature Ventricular rate 102 BPM MUSE SYSTEM Atrial Rate 102 BPM MUSE SYSTEM P-R Interval 162 ms MUSE SYSTEM QRS Duration 88 ms MUSE SYSTEM Q-T Interval 370 ms MUSE SYSTEM QTC Calculated 482 ms MUSE SYSTEM (Bezet) Calculated P [place] 60 degrees MUSE SYSTEM Calculated R [place] 63 degrees MUSE SYSTEM Calculated T [place] 30 degrees MUSE SYSTEM INTERPRETATION Sinus tachycardia [...] STAT documented in this encounter Care Teams Banbury Operator Relationship Specialty Start Date End Date Sunitha Milligan MD PCP - General 07/07/10 02/18/[address] [place] [address] [phone] documented as of this encounter
--- OUTSIDE RECORDS SUMMARY | 2022-04-21 10:54 | XMS_ITS | Encounter Summary ---
:1955 Author Organization [facility] [place] [address] Care Team Providers Name Role Phone Sunitha Milligan MD Primary Care Provider Encounter Details Date Type Department Care Team Description 07/29/2014 Telephone Pulmonology at [facility] Padmini Lozano MD [facility] [place] [address] PULMONARY MEDICINE [phone] [place], [place] [address] (Wo rk) Social History Tobacco [...] on filedocumented in this encounter Care Teams Shore Worker Relationship Specialty Start Date End Date Sunitha Milligan MD PCP - General 07/07/10 02/18/16 [address] [place] [address] documented as of this encounter
--- OUTSIDE RECORDS SUMMARY | 2022-04-21 10:54 | XMS_ITS | Encounter Summary ---
:1955 Author Organization [facility] [place] [address] Care Team Providers Name Role Phone Sunitha Trotter MD Primary Care Provider Encounter Details Date Type Department Care Team Description 06/12/2014 Orders Only Radiology Amy Arroyo MD [facility] [place] [address] DIAGNOSTIC RADIOLOGY [phone] [place], [place] [address] (Wo rk) Social History Tobacco [...] as above* Patient Position: At discretion of chief operator lock tender Biopsy/drain access site: RIGHT pleural fluid Medications to discontinue (and days): Aspirin x 3 days Labs: [obtain per CT protocol] General anesthesia required: [no] documented in this encounter Plan of Treatment Not on filedocumented as of this encounter Visit Diagnoses Not on filedocumented in this encounter Care Teams Revenue Inspector Relationship Specialty Start Date End Date Sunitha Trotter MD PCP - General 07/07/10 02/18/16 [address] [place] [address] documented as of this encounter
--- OUTSIDE RECORDS SUMMARY | 2022-04-21 10:54 | XMS_ITS | Encounter Summary ---
:1955 Author Organization [facility] [place] [address] Care Team Providers Name Role Phone Sunitha Milligan MD Primary Care Provider Encounter Details Date Type Department Care Team Description 07/30/2014 Telephone Pulmonology at [facility] Padmini Lozano MD [facility] [place] [address] PULMONARY MEDICINE [phone] [place], [place] [address] (Wo rk) Social History Tobacco [...] effusion documented in this encounter Care Teams Automobile Painter Relationship Specialty Start Date End Date Sunitha Milligan MD PCP - General 07/07/10 02/18/16 [address] [place] [address] documented as of this encounter
--- OUTSIDE RECORDS SUMMARY | 2022-04-21 10:54 | XMS_ITS | Encounter Summary ---
:1955 [place] [address] Care Team Providers Name Role Phone Sunitha Milligan MD Primary Care Provider Encounter Details Date Type Department Care Team Description 11/08/2014 Hospital Encounter Non-Invasive FRY (dysp nishi on Cardiology Lab Margy [place] ) [place] [address] Social History Tobacco Use Types Packs/Day [...] PM EDT) P athologist Signature EF 65 HEARTLAB SYSTEM Anatomical Region Laterality Modality Other Specimen (Source) Anatomical Location Collection Method / Collectio n Time Received Time / Laterality Volume 11/08/2014 Narrative 11/08/2014 4:24 PM EDT Procedure: ? Transthoracic Echocardiogram Patient: ? YOUNG CYN A ? (Age): 1955(59) Med Rec#: ?[id number] ? Sex: ?F ? Site Loc: ?[facility] ? Ht / Wt: ??161(cm)/175(kg) Pt. Loc: ? Echo Lab ? BSA: ?2.8 Study Date: ?11/08/2014 ? Pt. Type: Outpatient Tape: ? Referring: Padmini Lozano Mortgage Processing Manager: Rosemarie Degroot Diagnosis: ??Dyspnea (786.09) CPT Code(s): ??Echo Full (37385), ??Spec tral Doppler (80314), ??Color Doppler (83220), ??Optison (11374RF), Indication(s):Rhythm: HR ?BP ?153/73 ?? SUMMARY: 1. [...] ? Mid-Inferior ?Normal ? Mid-Inferoseptal ?Normal ? [place]-Septal ? Normal ? [place]-Anterior ? Normal ? [place]-Lateral ?Normal ? [place]-Inferior ? Normal ? [place]-Tip ?Normal ? Chambers ?Value ?Units (Range) ? [...] 4:02 Images reviewed and interpretation verif ied [facility] Cardiac Ultrasound Laboratory Procedure Note Jorge Mckeon MD - 11/08/2014Format ting of this note might be different from the original. Procedure: Transthoracic Echocardiogram Patient: JOHAN Magana DOB(Age): [birth year](59) Med Rec#: [id number] Sex: F Site Loc: [facility] Ht / Wt: 161(cm)/175(kg) Pt. Loc: Echo Lab BSA: 2.8 Study Date: 11/08/2014 Pt. Type: Outpati ent Tape: Referring: Padmini Lozano Mortgage Processing Manager: Rosemarie Degroot Diagnosis: Dyspnea (786.09) CPT Code(s): Echo Full (00941), Spectral Doppler (95660), Color Doppler (00162), Optison (11255ZC), Indication(s):Rhythm: HR BP 153/73 SUMMARY: 1. Technically [...] Normal Mid-Posterolateral Normal Mid-Inferior Normal Mid-Inferoseptal Normal [place]-Septal Normal [place]-Anterior Normal [place]-Lateral Normal [place]-Inferior Normal [place]-Tip Normal Chambers Value Units (Range) IVSd 2D [...] Mckeon 11/08/2014 16:24:02 Images reviewed and interpretation vercaryl olea [facility] Cardiac Ultrasound Laboratory Padmini Lozano MD ECHO ORDERABLES documented in this encounter [...] Routine documented in this encounter Care Teams Blade Filer Relationship Specialty Start Date End Date Sunitha Milligan MD PCP - General 07/07/10 02/18/16 [address] [place] [address] documented as of this encounter
--- OUTSIDE RECORDS SUMMARY | 2022-04-21 10:54 | XMS_ITS | Encounter Summary ---
:1955 Author Organization [facility] [place] [address] Care Team Providers Name Role Phone Sunitha Milligan MD Primary Care Provider Encounter Details Date Type Department Care Team Description 02/22/2013 Orders Only [place] [facility] [place] Doss, H/O total knee [facility] Ron coyle MD replacement ([place] [address] 10 Ella Mora Dx) [phone] [place] [address] Social History Tobacco Use Types Packs/Day Years Used Date Never Assessed Sex Assigned at Date Recorded Not on file documented as of this encounter Plan of Treatment Not on filedocumented as of this encounter Visit Diagnoses Diagnosis H/O total knee replacement - Primary Knee joint replacement by other means documented in this encounter Care Teams Emergency Services Professional Relationship Specialty Start Date End Date Sunitha Milligan MD PCP - General 07/07/10 [address] [place] [phone] documented as of this encounter
--- OUTSIDE RECORDS SUMMARY | 2022-04-21 10:54 | XMS_ITS | Encounter Summary ---
:1955 Author Organization [facility] [place] [address] Care Team Providers Name Role Phone Sunitha Milligan MD Primary Care Provider Encounter Details Date Type Department Care Team Description 04/30/[address] [facility] [place] [facility] VICTOR [facility] Mariam Espino MD [facility] [place] [address] [place] [address] Social History Tobacco Use Types Packs/Day [...] Routine documented in this encounter Care Teams Repair Technician Relationship Specialty Start Date End Date Sunitha Milligan MD PCP - General 07/07/10 02/18/16 [address] [place] [address] documented as of this encounter
--- OUTSIDE RECORDS SUMMARY | 2022-04-21 10:54 | XMS_ITS | Encounter Summary ---
:1955 Author Organization [facility] Address [place] [address] Care Team Providers Name Role Phone Sunitha Milligan MD Primary Care Provider Encounter Details Date Type Department Care Team Description 08/01/2014 Hospital Encounter XRay at [facility] Pleural effusion [address] [place] [address] Padmini Keller MD [facility] [place] [address] [place] [address] Social History Tobacco Use Types [...] effusion documented in this encounter Care Teams Route Service Representative Relationship Specialty Start Date End Date Sunitha Milligan MD PCP - General 07/07/10 02/18/16 [address] [place] [address] documented as of this encounter
--- OUTSIDE RECORDS SUMMARY | 2022-04-21 10:54 | XMS_ITS | Encounter Summary ---
:1955 Author Organization [facility] [place] [address] Care Team Providers Name Role Phone Sunitha Trotter MD Primary Care Provider Encounter Details Date Type Department Care Team Description 03/24/2014 Hospital Encounter Radiology at [facility], DR VICTOR [facility] Brandan Kelly MD [facility] [place] [address] [place] [address] Social History Tobacco Use Types Packs/Day [...] Rios RN - 03/24/2014 1:[address] [facility] NURSING DATABASE Name: CYN MASTERSON Date of : 1955 AGE 58 y.o. Address: [address] [address] (home) Mobile: No relevant phone numbers on file. Referring Provider: Brandan Kelly Reason for Visit: Assessment: 58 y.o. female recent fall presented to [facility] with tachypnea with new right pleural fluid (suspected blood) on OSH CT (03/22/14) . Attempted pleural drain placement at [facility] but unsuccessful due to body habitus Plan: US-guided right pleural drain then transport back to [facility] (Assessment/plan from provider's note, bottom of [...] informed this patient that they require a local owner operator truck driver to drive them home after this procedure. In the absence of a local owner operator truck driver, IR will not be able to [...] uvula visible)?? - Juan Hanks MD (Pager #[phone]) 03/24/2014 VASCULAR AND INTERVENTIONAL RADIOLOGY FOCUSED H&P [...] recent fall. Attempted pleural drain placement at [facility] but unsuccessful due to body habitus Request from [facility] hospitalist for right pleural drain. Past [...] BUN 17 12/18/2013 CREATININE 0.66* 12/18/2013 Imagin03/22/[address] [facility] [address] Physical Exam: Pending (to be performed in angio the day of procedure) ASA: Pending (to be assessed in angio the day of procedure) Mallampati Class: Pending (to be assessed in angio the day of procedure) Assessment: 58 y.o. female recent fall presented to [facility] with tachypnea with new right pleural fluid (suspected blood) on OSH CT (03/22/14) . Attempted pleural drain placement at [facility] but unsuccessful due to body habitus Plan: US-guided right pleural drain then transport back to [facility] Labs to be performed day of procedure: none Medication to STOP: none Sedation: Moderate sedation per IR RN protocols Prophylactic antibiotic: none Additional medications for procedure: none Planned access site: right thorax Position: left side down Consent: Pending - Juan Hanks MD (Pager #[phone]) 03/24/2014 documented in this encounter Procedure Notes Brandan Kelly MD - 03/24/2014 1:28 PM EDT VIR PROCEDURE NOTE Procedure: U/S guided right chest tube placement. ACC#: [id number] Indication for Procedure: Cyn Masterson is a 58 y.o. female with tachypnea with new right pleural fluid (suspected blood) on OSH CT (03/22/14) and recent fall. Attempted pleural drain placement at [facility] but unsuccessful due to body habitus. [...] suture and capped for transport back to [facility]. Medications: Fentanyl 250mcg IV, 1% Lidocaine <10ccs subcutaneous. Est Blood Loss: <5cc. Complications: No immediate. Impression: 1. U/S guided right chest tube placement, 10Fr. 2. Catheter currently capped for the transport back to [facility]. Can be connected to suction drainage once pt back at [facility]. Resident/Fellow: Latonya. Attending: Dr. Leticia Johnson [...] U/S guided right chest tube placement. ?ACC#: [id number] ? Indication ?? for Procedure: Cyn Masterson is a 58 y.o. female with tachypnea with new right pleural fluid ?? (suspected blood) on OSH CT (03/22/14) and recent fal l. Attempted pleural drain ?? placement at [facility] but unsuccessful due to body ?? [...] suture and capped for transport back to [facility]. ? Medications: ?? Fentanyl 250mcg IV, 1% L idocaine <10ccs subcutaneous. ?Est ?? Blood Loss: <5cc. ?Complications: ?? No immediate. ?Impression: ?1. ?? U/S guided right chest tube placement, 1 0Fr. ?2. ?? Catheter currently capped for the transport back to [facility]. ?? Can b e connected to suction drainage once pt back ?? at [facility]. ?Resident/Fellow: ? ? Percarpio. ?Attending: ?? I, Dr. Kelly was present throughout this ?? procedure . ?; ?? {CR} ? Film and interpretation reviewed by the attending Procedure Note Brandan Kelly MD - 03/25/2014Formattin g of this note might be different from the original. ; VIR PROCEDURE NOTE Procedure: U/S lv ded right chest tube placement. ACC#: [id number] Indication for Procedure: Cyn Masterson is a 58 y.o. female with tachypnea with new right pleural fluid (suspected blood) on OSH CT (03/22/14) and recent fal l. Attempted pleural drain placement at [facility] but unsuccessful due to body hab [...] and ca pped for transport back to [facility]. Medications: Fentanyl 250mcg IV, 1% Lido leo <10ccs subcutaneous. Est Blood Loss: <5cc. Complications: No imme diate. Impression: 1. U/S guided right chest tube placement, 1 0Fr. 2. Catheter currently capped for the transport back to [facility]. Can be c onnected to suction drainage once pt back at [facility]. Resident/Fellow: Latonya . Attending: Dr. Leticia [...] Routine documented in this encounter Care Teams Jute Bag Cutting Machine Operator Relationship Specialty Start Date End Date Sunitha Trotter MD PCP - General 07/07/10 02/18/16 [address] [place] [address] documented as of this encounter
--- OUTSIDE RECORDS SUMMARY | 2022-04-21 10:54 | XMS_ITS | Encounter Summary ---
:1955 Author Organization [facility] [place] [address] Care Team Providers Name Role Phone Sunitha Milligan MD Primary Care Provider Reason for Referral Surgical (Routine) - Closed Specialty Diagnoses / Procedures Referred By Contact Refer red To Contact Thoracic Surgery Diagnoses Chronic chest pain Hemothorax Michele Eastman MD [facility] [address] [place] [address] [place] [address] [place] [address] Fax: Referral ID Status Reason Start Date Expiration Date Visits V isits Requested Authorized [id number] Closed Specialty 09/20/2014 09/20/2015 1 1 Service Requested Reason for Visit Reason Comments Follow-up Encounter Details Date Type Department Care Team Description 09/20/2014 Follow-Up Pulmonology at [facility] Michele Eastman DOE (dyspnea on exertion); [facility] Chronic chest pain; [facility] [place] [address] PULMONARY MEDICI [place], [place] [address] (Wo rk) Social History Tobacco [...] this box is checked, you need to rock picker a prescription at your pharmacy. Important Things You Talked About With Your Doctor I will refer you to thoracic surgeon. They will call you. Communication With Your Local Health Care Providers The [facility] medical record system allows for electronic [...] CYN A ? (Age): 1955(59) Med Rec#: ?[id number] ? Sex: ?F ? Site Loc: ?[facility] ? Ht / Wt: ??161(cm)/175(kg) Pt. Loc: ? Echo Lab ? BSA: ?2.8 Study Date: ?11/08/2014 ? Pt. Type: Outpatient Tape: ? Referring: Michele Eastman Stopper Grinder: Rosemarie Degroot Diagnosis: ??Dyspnea (786.09) CPT Code(s): ??Echo Full (02101), ??Spec tral Doppler (63180), ??Color Doppler (91676), ??Optison (14326NM), Indication(s):Rhythm: HR ?BP ?153/73 ?? SUMMARY: 1. [...] ? Mid-Inferior ?Normal ? Mid-Inferoseptal ?Normal ? [place]-Septal ? Normal ? [place]-Anterior ? Normal ? [place]-Lateral ?Normal ? [place]-Inferior ? Normal ? [place]-Tip ?Normal ? Chambers ?Value ?Units (Range) ? [...] 4:02 Images reviewed and interpretation verif ied [facility] Cardiac Ultrasound Laboratory Procedure Note Jorge Mckeon MD - 11/08/2014Format ting of this note might be different from the original. Procedure: Transthoracic Echocardiogram Patient: JOHAN CASTANEDA(Age): [birth year](59) Med Rec#: [id number] Sex: F Site Loc: [facility] Ht / Wt: 161(cm)/175(kg) Pt. Loc: Echo Lab BSA: 2.8 Study Date: 11/08/2014 Pt. Type: Outpati ent Tape: Referring: Michele Eastman Stopper Grinder: Rosemarie Degroot Diagnosis: Dyspnea (786.09) CPT Code(s): Echo Full (43544), Spectral Doppler (13070), Color Doppler (27144), Optison (82147OX), Indication(s):Rhythm: HR BP 153/73 SUMMARY: 1. Technically [...] Normal Mid-Posterolateral Normal Mid-Inferior Normal Mid-Inferoseptal Normal [place]-Septal Normal [place]-Anterior Normal [place]-Lateral Normal [place]-Inferior Normal [place]-Tip Normal Chambers Value Units (Range) IVSd 2D [...] 16:24:02 Images reviewed and interpretation song olea [facility] Cardiac Ultrasound Laboratory Michele Eastman MD ECHO ORDERABLES documented in this encounter Visit Diagnoses Diagnosis FRY (dyspnea on exertion) Other dyspnea and respiratory abnormalit y Chronic chest pain Chest pain, unspecified Hemothorax Other specified forms of effusion, excep t tuberculous FRY (dyspnea on exertion) Other dyspnea and respiratory abnormalit y FRY (dyspnea on exertion) Other dyspnea and respiratory abnormalit y documented in this encounter Care Teams Animal Warden Relationship Specialty Start Date End Date Sunitha Milligan MD PCP - General 07/07/10 02/18/16 [address] [place] [address] documented as of this encounter
--- OUTSIDE RECORDS SUMMARY | 2022-04-21 10:54 | XMS_ITS | Encounter Summary ---
:1955 Author Organization [facility] [place] [address] Care Team Providers Name Role Phone Sunitha Milligan MD Primary Care Provider Encounter Details Date Type Department Care Team Description 06/11/2014 Hospital Encounter Laboratory Padmini Lozano, Hyperglycemia; [facility] Pleural effusion [facility] [address] PULMONARY [phone] [place], [place] [address] Social History Tobacco Use Types [...] Organization Address City/State/[place] [address] [facility] Protein, total (06/11/2014 11:26 AM EDT) P athologist Signature Total Protein 6.8 6.4 - 8.3 CERNER gm/dL [facility] Specimen Anatomical Collection Method Collection Time Receive d Time (Source) Location / / Volume Laterality Blood specimen 06/11/2014 11:26 4 (specimen) AM EDT 11:28 AM EDT Resulting Agency Comment Spec In Lab Padmini Lozano MD CHEMISTRY ORDERABLES Performing Organization Address City/[facility]/ZIP Code Phon e Number [address] [facility] Glucose, random (06/11/2014 11:26 AM EDT) P athologist Signature Glucose Lvl 120 60 - 199 CERNER mg/dL [facility] Comment: Diabetes: >=200 mg/dL plus symp toms Specimen Anatomical Collection Method Collection Time Receive d Time (Source) Location / / Volume Laterality Blood specimen 06/11/2014 11:26 4 (specimen) AM EDT 11:28 AM EDT Resulting Agency Comment Spec In Lab Padmini Lozano MD CHEMISTRY ORDERABLES Performing Organization Address City/[facility]/ZIP Code Phon e Number [address] [facility] documented in this encounter Visit Diagnoses Diagnosis Hyperglycemia Other abnormal glucose Pleural effusion Unspecified pleural effusion documented in this encounter Care Teams Histology Tech Relationship Specialty Start Date End Date Sunitha Milligan MD PCP - General 07/07/10 02/18/16 [address] [place] [address] documented as of this encounter
--- OUTSIDE RECORDS SUMMARY | 2022-04-21 10:54 | XMS_ITS | Encounter Summary ---
:1955 Author Organization [facility] [place] [address] Care Team Providers Name Role Phone Sunitha Milligan MD Primary Care Provider Encounter Details Date Type Department Care Team Description 07/16/[address] Scan [place] [facility] Lung nodule [facility] Padmini Lozano MD [facility] [place] [address] [place] [address] Social History Tobacco Use Types Packs/Day [...] nodule documented in this encounter Care Teams Booth Cleaner Relationship Specialty Start Date End Date Sunitha Milligan MD PCP - General 07/07/10 02/18/16 [address] [place] [address] documented as of this encounter
--- OUTSIDE RECORDS SUMMARY | 2022-04-21 10:54 | XMS_ITS | Encounter Summary ---
:1955 Author Organization [facility] [place] [address] Care Team Providers Name Role Phone Sunitha Mililgan MD Primary Care Provider Encounter Details Date Type Department Care Team Description 11/01/[address] Scan at [facility], DR VICTOR [facility] Marek Julien MD [facility] [place] [address] [place] [address] Social History Tobacco Use Types Packs/Day [...] Priority Date/Time Associated Diagnosis Comme nts CT HEAD WO CONTRAST Routine 11/01/2011 9:47 AM Re sults for this (GENERIC) EDT procedure are i n the results section. documented in this encounter Results CT HEAD WO CONTRAST (11/01/2011 9:47 AM EDT) Anatomical Region Laterality Modality Head Computed Tomography Specimen (Source) Anatomical Collection Method Collection Time Re ceived Time Location / / Volume Laterality 11/01/2011 9:47 AM EDT Impressions 11/01/2011 3:34 PM EDT IMPRESSION: 1. ??Normal CT brain. ?? Film and interpretation reviewed by the attending Narrative 11/01/2011 3:[address] HEAD WITHOUT CONTRAST: INDICATION: ??Increasing headaches. ?? TECHNIQUE: ??Contiguous axial images acq uired through the head without IV contrast. ?? COMPARISON: ??None. ?? FINDINGS: ??There is no mass, mass effec t, or midline shift. ??The ventricles are normal in size and morphology. ??There a re no extraaxial collections or intraparenchymal hemorrhages. ??The kruse -white differentiation is well maintained. ?? Procedure Note Rory Lanodn MD - 11/01/2011Format ting of this note might be different from the original. CT HEAD WITHOUT CONTRAST: INDICATION: Increasing headaches. TECHNIQUE: Contiguous axial images acqui red through the head without IV contrast. COMPARISON: None. FINDINGS: There is no mass, mass effect, or midline shift. The ventricles are normal in size and morphology. There are no extraaxial collections or intraparenchymal hemorrhages. The kruse-w gio differentiation is well maintained. IMPRESSION IMPRESSION: 1. Normal CT brain. Film and interpretation reviewed by the attending Marek Julien MD IMG CT ORDERABLES documented in this encounter Visit Diagnoses Not on filedocumented in this encounter Care Teams Spa Technician Relationship Specialty Start Date End Date Sunitha Milligan MD PCP - General 07/07/10 02/18/16 [address] [place] [address] documented as of this encounter
--- OUTSIDE RECORDS SUMMARY | 2022-04-21 10:54 | XMS_ITS | Encounter Summary ---
:1955 Author Organization [facility] Address [facility] [place] [address] Care Team Providers Name Role Phone Sunitha Milligan MD Primary Care Provider Reason for Visit Reason Onset Date Comments Blood Infection 12/14/2011 Encounter Details Date Type Department Care Team Description 12/14/2011 Telephone Orthopaedics at [facility] Terry Doss MD Blood Infection [facility] [place] [address] [address] [phone] [place], [place] [address] (Wo rk) Social History Tobacco Use Types Packs/Day Years Used Date Never Assessed Sex Assigned at Date Recorded Not on file documented as of this encounter Miscellaneous Notes Telephone Encounter - Delmis Easley RN - 12/14/2011 12:50 PM EDT Radha called she went to the ER at [facility] last evening with a cough, SOB [...] tear. Implants: All implants are from the [employer]RS distal femoral replacement system. 1. Size 12 [...] on filedocumented in this encounter Care Teams Aviation Technical Systems Specialist Relationship Specialty Start Date End Date Sunitha Milligan MD PCP - General 07/07/10 02/18/16 [address] [place] [address] documented as of this encounter
--- OUTSIDE RECORDS SUMMARY | 2022-04-21 10:54 | XMS_ITS | Encounter Summary ---
:1955 Author Organization [facility] [place] [address] Care Team Providers Name Role Phone Sunitha Trotter MD Primary Care Provider Encounter Details Date Type Department Care Team Description 06/20/[address] Scan at [facility] Pleural effusion [facility] Michele Eastman MD [facility] [place] [address] [place] [address] Social History Tobacco Use Types [...] M, RN - 06/20/2014 1:42 PM EST [facility] Vascular and Interventional Radiology Discharge Instructions Following [...] is during regular office hours, please call [phone]. If it is after regular office hours, oron weekends or holidays, please call [phone] and ask to speak to the Parking Enforcement Manager on callfor Interventional Radiology. documented in this [...] uvula visible)?? - Juan Hanks MD (Pager #[phone]) 06/20/2014 PRE-PROCEDURE VIR NOTE: Referring Physician: Dr [...] as above* Patient Position: At discretion of vertical punch operator Biopsy/drain access site: RIGHT pleural fluid Medications to discontinue (and days): Aspirin x 3 days Labs: [obtain per CT protocol] General anesthesia required: [no] Buffy Diaz RN - 06/17/2014 4:58 PM EST VIR NURSING DATABASE Name: CYN MASTERSON Date of : 1955 AGE 59 y.o. Address: [address] [address] Phone: There are no phone numbers on file. Mobile: Telephone Information: Referring Provider: Mendy Talbot Reason for Visit: CT guided R sided diagnostic thoracentesis Assessment/Plan: Patient Position: At discretion of vertical punch operator Biopsy/drain access site: RIGHT pleural fluid [...] informed this patient that they require a crew car driver to drive them home after this procedure. In the absence of a crew car driver, IR will not be able to [...] guided aspiration of right pleural effusion Acc#: [id number] Indication for Procedure: right pleural effusion Procedure [...] Component Value Ref Test Analysis Performed At [facility] Range Method Time Signature Anaerobic CERNER Culture ? Patient Name: CYN MASTERSON ?Ordered By: MICHELE EASTMAN ? MR#: [id number] ?LOC: ??3ZC ? /Sex: ??1955 (59 years), [...] Organization Address City/State/[place] [address] ARNAV Kwan MobileMANDAIUM Body fluid culture (06/20/2014 1:30 PM EST) Component Value Ref Test Analysis Performed At [facility] Range Method Time Signature Body Fluid CERNER Culture ? Patient Name: CYN MASETRSON ?Ordered By: MICHELE EASTMAN ? MR#: [id number] ?LOC: ??3ZC ? /Sex: ??1955 (59 years), [...] Organization Address City/State/[place] [address] CERNER MILLENNIUM Calcofluor White Stain (06/20/2014 1:30 PM EST) Component Value Ref Test Analysis Performed At [facility] gist Range Method Time Signature Calcofluor CERNER White Stain ? Patient Name: CYN MASTERSON ?Ordered By: MICHELE EASTMAN ? MR#: [id number] ?LOC: ??3ZC ? /Sex: ??1955 (59 years), [...] Organization Address City/State/[place] [address] ARNAV BAKER Fungus culture (06/20/2014 1:30 PM EST) Component Value Ref Test Analysis Performed At [facility] Range Method Time Signature Fungus CERNER Culture ? Patient Name: CYN MASTERSON ?Ordered By: MICHELE EASTMAN ? MR#: [id number] ?LOC: ??3ZC ? /Sex: ??1955 (59 years), [...] Organization Address City/State/[place] [address] [facility] [...] guided aspiration of right pleural effusion Acc#: [id number] Indication for Procedure: right pleural effusion Procedure [...] guided aspiration of right pleural effusion Acc#: [id number] Indication for Procedure: right pleural effusion Procedure [...] Routine documented in this encounter Care Teams Bandage Winding Machine Operator Relationship Specialty Start Date End Date Sunitha Trotter MD PCP - General 07/07/10 02/18/[address] [place] [address] documented as of this encounter
--- OUTSIDE RECORDS SUMMARY | 2022-04-21 10:54 | XMS_ITS | Encounter Summary ---
:1955 Author Organization [facility] [place] [address] Care Team Providers Name Role Phone Sunitha Milligan MD Primary Care Provider Reason for Visit Reason Comments Referral Encounter Details Date Type Department Care Team Description 05/21/2014 Office Visit Pulmonology at [facility] Padmini Lozano, Health care maintenance ([facility] D[facility]); [facility] Lung nodule; Drive [facility] Pleural effusion; [place] [address] [address]; [phone] PULMONARY MEDICI [place] Pleural effusion, chylous [place], [place] [address] Social History Tobacco Use Types [...] access to your electronic medical record at [facility] and the ability to communicate with [...] the instructions. Here is your activation code: [email or web address] Expires: 07/05/2014 11:14 AM Remember, myD-H is NOT for urgent needs! Always dial 911 for medical emergencies. -I will request your record in March 2014 from [facility] -I will schedule you for another drainage of right chest fluid. This will be performed by Interventional radiologist at [facility] -Once the above study is completed, I would like you to call me at [phone] to discuss the result. -Also I will [...] Eventually she was transferred on 03/24/2014 to [facility] for US guided chest tube placement and was sent back to [facility] after the successful tube placement. I don't see any report of pleural fluid study in [facility]. She said doctors at [facility] may have sent the test, but she is unsure about the result. More recently in 04/2014, she had another CT scan PE protocol here at [facility], which demonstrated no evidence of PE ( [...] results found for this basename: phart, po2art, [id number] Diagnostic Imaging: (I personally reviewed the radiographs [...] will try to obtain the record from [facility]. Even 1st tap result was negative for [...] of this patient. Please contact us at [phone] any further questions or requests. documented in [...] 1. PRG ?? US CHEST REAL TIME [50893 (CPT)] ?; ?? {CR} ? ; ?? {CR} ? ; ? VIR Proced ure Note ?A# ?? [id number] ?Indication: ?? 59 yo morbidly obese woman found to have right ?? pleural effusion after fall and right chest injury. Referred to [facility] for ?? chest tube placement on 03/24/14 and later returned to [facility]. Effusion seen on ?? recent CT scan [...] ; 1. PRG US CHEST REAL TIME [74379 (CPT)] ; {CR} ; {CR} ; VIR Procedure Note A# [id number] Indicat ion: 59 yo morbidly obese woman found to have right pleural effusion after fall and right chest injury. Referred to [facility] for chest tube placement on 03/24/14 and later returned to [facility]. Effusion seen on recent CT scan and [...] Organization Address City/State/[place] [address] CERNER MILLENNIUM Protein, total [...] Organization Address City/State/ZIP Code Phon e Number [address] [facility] Glucose, random (06/11/2014 11:26 AM EDT) P athologist Signature Glucose Lvl 120 60 - 199 CERNER mg/dL [facility] Comment: Diabetes: >=200 mg/dL plus symp toms Specimen Anatomical Collection Method Collection Time Receive d Time (Source) Location / / Volume Laterality Blood specimen 06/11/2014 11:26 4 (specimen) AM EDT 11:28 AM EDT Resulting Agency Comment Spec In Lab Padmini Lozano MD CHEMISTRY ORDERABLES Performing Organization Address City/State/ZIP Code Phon e Number [address] [facility] Cytopathology Non-Gynecological (05/21/2014 6:11 PM EDT) Specimen Anatomical Collection Method Collection Time Receive d Time (Source) Location / / Volume Laterality AP Specimen 05/21/2014 6:11 PM 4 6:11 EDT PM EDT Narrative CERNER MILLENNIUM - 05/21/2014 6:11 PM E DT Specimen requisition ordered. ??Separate Pathology report to follow Padmini Lozano MD PATHOLOGY/CYTOLOGY ORDERABLE S Performing Organization Address City/State/ZIP Code Phon e Number [address] [facility] documented in this encounter Visit Diagnoses [...] nodule documented in this encounter Care Teams Electrical Maintenance Technician Relationship Specialty Start Date End Date Sunitha Milligan MD PCP - General 07/07/10 02/18/16 [address] [place] [address] documented as of this encounter
--- OUTSIDE RECORDS SUMMARY | 2022-04-21 10:55 | XMS_ITS | Encounter Summary ---
:1955 Author Organization [facility] [place] [address] Care Team Providers Name Role Phone Sunitha Milligan MD Primary Care Provider Encounter Details Date Type Department Care Team Description 08/26/2010 Office Visit [place]edics [place] [facility] Raffi Cordova PA [facility] [place] [address] ORTHOPAEDIC SURGERY [phone] [place], [place] [address] (Wo rk) Social History Tobacco Use Types Packs/Day Years Used Date Never Assessed Sex Assigned at Date Recorded Not on file documented as of this encounter Plan of Treatment Not on filedocumented as of this encounter Visit Diagnoses Not on filedocumented in this encounter Care Teams Sap Portal Developer Relationship Specialty Start Date End Date Sunitha Milligan MD PCP - General 07/07/10 02/18/16 [address] [place], [place] [address] documented as of this encounter
--- OUTSIDE RECORDS SUMMARY | 2022-04-21 10:55 | XMS_ITS | Encounter Summary ---
:1955 Author Organization [facility] [place] [address] Care Team Providers Name Role Phone Sunitha Milligan MD Primary Care Provider Encounter Details Date Type Department Care Team Description 08/26/2010 Procedure visit [place] [address] Social History Tobacco Use Types Packs/Day Years Used Date Never Assessed Sex Assigned at Date Recorded Not on file documented as of this encounter Plan of Treatment Not on filedocumented as of this encounter Visit Diagnoses Not on filedocumented in this encounter Care Teams Intermodal Customer Service Relationship Specialty Start Date End Date Sunitha Milligan MD PCP - General 07/07/10 02/18/16 [address] [place], [place] [address] documented as of this encounter
--- OUTSIDE RECORDS SUMMARY | 2022-04-21 10:57 | XMS_ITS | Clinical Summary ---
:1955 Author Organization [facility] Address [address] [place] [address] Care Team Providers Name Role Phone Alphonso Murphy MD Primary Care Provider [phone] Medications Medication Sig Dispensed Refills Start [...] non ACO status via Medicaid web trace: [phone] No additional problems on file Encounters Date Type Specialty Care Team Description 03/26/2022 Lab Requisition Clinical Laboratory Outr Resulting Lab , Provider from Last 3 Months Surgical History Surgery Date Site/Laterality Comments TOTAL KNEE ARTHROPLASTY 08/15/2004 - 08/14/2005 Left re vised 2 times FASCIOTOMY Medical History Medical History Date Comments COPD (chronic obstructive pulmonary disease) ([facility]) ([facility]) Asthma Femur fracture, left ([facility]) ([facility]) 2005 Hyperglycemia DAVID treated with BiPAP Allergic conjunctivitis Sprain of scapholunate ligament 03/21/2019 Pleural effusion 05/03/2014 Chronic respiratory failure with hypoxia and hypercapnia ([facility]) ([facility]) Depression Varicose vein of leg Low back pain with sciatica 05/03/2014 Sensorineural hearing loss, bilateral Morbid obesity ([facility]) ([facility]) Multinodular goiter Chronic headaches Urinary incontinence Right [...] - Plan of Treatment Not on file Procedures Procedure Name Priority Date/Time Associated Diagnosis Comme nts COVID-19 TEST [facility] Today 03/25/2022 13:55 LAB PCR EDT COVID-19 TESTING Routine 03/25/2022 13:55 Results for this EDT procedure are i n the results section. from Last 3 Months Results COVID-19 TEST [facility] PCR (03/25/2022 13:55 EDT) Specimen Swab Performing Organization Address [facility] Phon e Number [facility] [address] [place] [address] SERVICES COVID-19 TESTING (03/25/2022 13:55 EDT) COVID-19 rt-PCR Negative Negative [facility] Result Comment: [facility] This test has not been FDA c leared or approved. This test has been authorized by FDA under an EUA for use by authorized laboratories. This test has been authorized only for detection of nucleic acid fro SERVICES m 2019-nCoV, not for any oth er viruses or pathogens. This test is only authorized for the duration of the declaration that circumstances exist justifying the authorization of emergency use of in vitro d iagnostic tests for detectio n and/or diagnosis of 2019-nCoV under section 564(b)(1) of Act, 21 U.S.C ?? 360bbb-3(b) (1), unless the authorization is terminated or revoked sooner. Negative results do not prec lude 2019-nCoV infection and should not be used as the sole basis for treatment or other patient management decisions. Negative results must be combined with clinical observa tions, patient history, and epidemiological informatio n. Testing was performed using the adri SARS-CoV-2 assay ([employer] on the Adri 6800 System Performing Lab Adri 6800 [facility] SERVICES Specimen Swab Performing Organization Address [facility]/ZIP Code Phon e Number [facility] [address] [place] [address] SERVICES from Last 3 Months Insurance Payer Benefit Plan / Subscriber ID Effective Phone Address T ype Group Dates [facility] [id number] 2019-Pres [address] [facility] [place] [id number] Advantage GL MEDICARE [place] [address] [place] [id number] 2012-Pres [address] Medicaid [place] ent [facility] [id number] Radha Masterson A Personal/Family Self 1955 [address] [place] [address] Radha Masterson A Personal/Family Self 1955 [address]) [place] [address] Radha Masterson A Personal/Family Self [address] [place] [address] Merari Mastersonis A Personal/Family Self [address]) [place] [address] Radha Masterson A Personal/Family Self [address] [place] [address] Radha Mastesron A Personal/Family Self 1955 [address]Home) [place] [address] Radha Masterson A Personal/Family Self 1955 [address]Home) [place] [address] Care Teams Wheel Aligner Relationship Specialty Start Date End Date Alphonso Murphy MD PCP - General 10/22/19 [address] [place] [address]
--- OUTSIDE RECORDS SUMMARY | 2022-04-21 10:57 | XMS_ITS | Encounter Summary ---
:1955 Author Organization [facility] Address [address] [place] [address] Care Team Providers Name Role Phone Alphonso Murphy MD Primary Care Provider [phone] Reason for Visit Reason Onset Date Comments Appointment Related 03/19/2020 Encounter Details Date Type Department Care Team Description 03/19/2020 Telephone [facility] Therapy, Physical Appo intment Related Rehabilitation Therapy - [address] [id number] Social History Tobacco Use Types Packs/Day Years Used Date Never Assessed Sex Assigned at Date Recorded Not on file documented as of this encounter Miscellaneous Notes Telephone Encounter - Juli Roger MA - 03/19/2020 1009 EDT [facility] REHABILITATION THERAPY - [address] [address] Telephone Intake Information for Scheduling NEW Patients for Therapy Referring Provider: Alphonso Murphy MD Script/referral office faxing Primary Insurance: Medicare Secondary Insurance: Medicaid If Medicare: Have you received a letter from Medicare about the therapy cap? No Have you been seen in therapy since August of this year? No By whom? - How many visits have you had since August of this year - Are you receiving any home health or VNA services? No If the answer is YES -- contact VNA for prior authorization Notes/other: She is leaning to the right now and feels she needs another height adjustable and angleadjustable lateral thigh support for her right side now as the one on the left side pushes her to the right. Per Marie at [facility] she needs to go thru this PT to get this item. Date: 04/02/20 Therapist: Anca only @ 2:30 Location: [facility] Name of Supplier: [facility] Name of Rep: - Reason For Appt: (manual, power, scooter, cushion, seating): Seating Pressure Mapping? No Juli Roger MA 03/19/2020 10:13 documented in this encounter Plan of Treatment Not on filedocumented as of this encounter Visit Diagnoses Not on filedocumented in this encounter Care Teams Key Worker Relationship Specialty Start Date End Date Alphonso Murphy MD PCP - General 10/22/[address] [place] [address] documented as of this encounter
--- OUTSIDE RECORDS SUMMARY | 2022-04-21 10:57 | XMS_ITS | Encounter Summary ---
:1955 Author Organization [facility] Address [address] [place] [address] Care Team Providers Name Role Phone Alphonso Murphy MD Primary Care Provider Encounter Details Date Type Department Care Team Description 04/28/2020 Plan of Care Documentation [facility] Rehabilitation Therapy [address] [id number] Social History Tobacco Use Types Packs/Day Years Used Date Never Assessed Sex Assigned at Date Recorded Not on file documented as of this encounter Progress Notes Anca Oreilly, PT - 05/23/2020 1631 EDT Outpatient Rehab Plan of Care REHABILITATION THERAPIES [facility] REHABIL[facility]ATION THER[facility] [address] [address] Physical Therapy Initial Evaluation Note Wheelchair Clinic [...] Current wheelchair: ?? Brand/style of primary wheelchair: [employer] bariatric heavy duty power chair ?? Age of wheelchair: January 24[birth year] 2020 ?? Cushion style/age: [employer] general use cushion ?? Other chair adaptations: [...] all day. ?? Transportation: Type of vehicle: [facility] OtherInbox Vehicle adaptations (car topper, ramp, lift): Strap [...] Chronic respiratory failure with hypoxia and hypercapnia ([facility] COPD (chronic obstructive pulmonary disease) ([facility]), Depression, Femur fracture, left ([facility]) (2005), Hyperglycemia, Low back pain with sciatica (05/03/2014), Morbid obesity ([facility]), Multinodular goiter, DAVID treated with BiPAP, [...] alone. Out and about in the community gema to dusk. Consent: Radha consented to today's [...] Team communication: Message to FABIANO Cano from [employer] following this visit. A: [...] at midline and correct the trunk leaning. Penitentiary Goals: 8 weeks ?? Radha will sit [...] on filedocumented in this encounter Care Teams Data Examination Clerk Relationship Specialty Start Date End Date Alphonso Murphy MD PCP - General 10/22/19 [address] [place] [address] documented as of this encounter
--- OUTSIDE RECORDS SUMMARY | 2022-04-21 10:57 | XMS_ITS | Encounter Summary ---
:1955 Author Organization [facility] Address [address] [place] [address] Care Team Providers Name Role Phone Alphonso Murphy MD Primary Care Provider [phone] Encounter Details Date Type Department Care Team Description 07/08/2020 Lab Requisition [facility] Junior Shaikh for other Pathology & TIMOTHY Nugent general examination Laboratory Medicine [address] [place], [place] [address] [facility] [address] [place] [address] Social History Tobacco Use Types Packs/Day Years Used Date Never Assessed Sex Assigned at Date Recorded Not on file documented as of this encounter Plan of Treatment Not on filedocumented as of this encounter Procedures Procedure Name Priority Date/Time Associated Diagnosis Comme nts COVID-19 TEST [facility] Today 07/08/2020 13:56 Encounter for oth er LAB PCR EST general examination COVID-19 TESTING Today 07/08/2020 13:56 Encounter for other Results for this EST general examination procedur e are in the results section. documented in this encounter Results COVID-19 TEST [facility] LAB PCR (07/08/2020 13:56 EST) Specimen Swab - Nasal (qualifier value) Performing Organization Address City/State/ZIP Code Phon e Number [facility] [address] [place] [address] SERVICES COVID-19 TESTING (07/08/2020 13:56 EST) COVID-19 rt-PCR Negative Negative [facility] Result Comment: [facility] This test [...] tions, patient history, and epidemiological informatio n. Performed on the [employer] Fusion instrument Performing Lab [facility] SERVICES Specimen Swab - Nasal (qualifier value) Performing Organization Address City/State/ZIP Code Phon e Number [facility] [address] [place] [address] SERVICES documented in this encounter Visit Diagnoses Diagnosis Encounter for other general examination documented in this encounter Care Teams Therapy Teacher Relationship Specialty Start Date End Date Alphonso Murphy MD PCP - General 10/22/[address] [place] [id number] documented as of this encounter
--- OUTSIDE RECORDS SUMMARY | 2022-04-21 10:57 | XMS_ITS | Encounter Summary ---
:1955 Author Organization [facility] Address [address] [place] [address] Care Team Providers Name Role Phone Alphonso Murphy MD Primary Care Provider [phone] Reason for Visit Reason Onset Date Comments Appointment Related 04/24/2020 Encounter Details Date Type Department Care Team Description 04/24/2020 Telephone [facility] Therapy, Physical Appo intment Related Rehabilitation Therapy - [address] [address] Social History Tobacco Use Types Packs/Day Years Used Date Never Assessed Sex Assigned at Date Recorded Not on file documented as of this encounter Miscellaneous Notes Telephone Encounter - Juli Roger MA - 04/24/2020 2012 EDT I spoke with the patient and reminded them of their wheelchair clinic appointment, to occur in two business days time at [facility]. She stated she would call [facility] to secure her ride. I told today would be her48 hour notice that they require. Juli Roger MA 04/24/2020 15:43 documented in this encounter Plan of Treatment Not on filedocumented as of this encounter Visit Diagnoses Not on filedocumented in this encounter Care Teams Support Assistant Relationship Specialty Start Date End Date Alphonso Murphy MD PCP - General 10/22/[address] [place] [address] documented as of this encounter
--- OUTSIDE RECORDS SUMMARY | 2022-04-21 10:57 | XMS_ITS | Encounter Summary ---
:1955 Author Organization [facility] Address [address] [place] [address] Care Team Providers Name Role Phone Alphonso Murphy MD Primary Care Provider [phone] Encounter Details Date Type Department Care Team Description 03/23/2020 Lab Requisition [facility] Outr Resulting Lab, Pathology & Laboratory Provider [facility] [address] [place], [place] [id number] Social History Tobacco Use Types Packs/Day Years [...] (03/23/2020 16:45 EDT) COVID-19 rt-PCR NEGATIVE Negative [facility] Result Comment: LABORATORY 2019-novel Coronavirus (2019 [...] Address City/State/ZIP Code Phon e Number [facility] [place] COVID-19 TESTING (03/23/2020 16:45 EDT) Pathologist [facility] COVID-19 rt-PCR NEGATIVE Negative [facility] Result Comment: LABORATORY 2019-novel Coronavirus (2019 -nCoV) [...] Administration's Emergency Use Authorization. Performing Lab [facility] LABORATORY SERVICES Specimen Swab Performing Organization Address City/State/ZIP Code Phon e Number [facility] [address] [place] [address] SERVICES [facility] [place], [place] documented in this encounter Visit Diagnoses Not on filedocumented in this encounter Care Teams Novelty Maker Relationship Specialty Start Date End Date Alphonso Murphy MD PCP - General 10/22/[address] [place], [place] [address] documented as of this encounter
--- OUTSIDE RECORDS SUMMARY | 2022-04-21 10:58 | XMS_ITS | Encounter Summary ---
:1955 Author Organization [facility] Address [address] [place] [address] Care Team Providers Name Role Phone Alphonso Murphy MD Primary Care Provider [phone] Reason for Visit Reason Onset Date Comments Appointment Related 10/23/2019 Encounter Details Date Type Department Care Team Description 10/23/2019 Telephone [facility] Therapy, Appointme nt Related Rehabilitation Therapy - Outpatient, [address] [address] Social History Tobacco Use Types Packs/Day Years Used Date Never Assessed Sex Assigned at Date Recorded Not on file documented as of this encounter Miscellaneous Notes Telephone Encounter - Deonte Guy MA - 10/23/2019 1138 EDT Called [phone] to reach patient regarding her appointment. I left a message on the Vinted machine explaining that the 10/23 appointment has been rescheduled to 10/31/19 @ 0900. DEONTE GUY MA 10/23/2019 11:43 documented in this encounter Plan of Treatment Not on filedocumented as of this encounter Visit Diagnoses Not on filedocumented in this encounter Care Teams Infantry Operations Specialist Relationship Specialty Start Date End Date Alphonso Murphy MD PCP - General 10/22/19 [address] [place], [place] [address] documented as of this encounter
--- OUTSIDE RECORDS SUMMARY | 2022-04-21 10:58 | XMS_ITS | Encounter Summary ---
:1955 Author Organization [facility] Address [address] [place] [address] Care Team Providers Name Role Phone Brandan Fabian MD Primary Care Provider Unavailable Reason for Visit Reason Onset Date Comments Appointment Related 01/13/2016 Encounter Details Date Type Department Care Team Description 01/13/2016 Telephone [facility] Therapy, Appointnc nt Related Rehabilitation Therapy - Outpatient, [address] [id number] Social History Tobacco Use Types Packs/Day Years Used Date Never Assessed Sex Assigned at Date Recorded Not on file documented as of this encounter Miscellaneous Notes Telephone Encounter - Eulalia Degroot - 01/13/2016 0815 EDT Per the intake nurse at [facility], this patient has not received services from them since 2011. No approval necessary to bill medicare. documented in this encounter Plan of Treatment Not on filedocumented as of this encounter Visit Diagnoses Not on filedocumented in this encounter Care Teams Sawmill Worker Relationship Specialty Start Date End Date Brandan Fabian MD PCP - General 11/19/15 10/21/19 documented as of this encounter
--- OUTSIDE RECORDS SUMMARY | 2022-04-21 10:58 | XMS_ITS | Encounter Summary ---
:1955 Author Organization [facility] Address [address] [place] [address] Care Team Providers Name Role Phone Unknown, Provider Primary Care Provider Encounter Details Date Type Department Care Team Description 04/04/2014 Results Only [facility] Nataly Trotter MD Laboratory Services - [address] [place] [address] [address] [facility] [place], [place] [id number] [phone] Social History Tobacco Use Types Packs/Day Years [...] ? 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 Accession #: ? [id number] ? : ? 1955 (Age: 58) ??F [...] types 16,18,31,3 3,35, 39,45,51,52,56,58,59,66, and 68 by registered nurse behavioral health media seth amplification. Comments Document reviewed and [...] e Number [facility] [address] [place] [address] SERVICES [facility] [address] [place] [address] documented in this encounter Visit Diagnoses Not on filedocumented in this encounter Care Teams Housekeeping Staff Relationship Specialty Start Date End Date Unknown, Provider, PCP - General 03/29/14 11/16/15 documented as of this encounter
--- OUTSIDE RECORDS SUMMARY | 2022-04-21 10:58 | XMS_ITS | Encounter Summary ---
:1955 Author Organization [facility] Address [address] [place] [address] Care Team Providers Name Role Phone Alphonso Murphy MD Primary Care Provider [phone] Encounter Details Date Type Department Care Team [...] EDT Outpatient Rehab Plan of Care Assessment Radah received her new wheelchair today, which fit her much better than the one she is using. Also, the chair has a more robust frame and higher performance motors and electronics, so hopefully it will withstand Radha' very aggressive use pattern. No further skilled Physical therapy is needed. Residential Goals: 8 weeks Radha will have a [...] on filedocumented in this encounter Care Teams Vice President Of Finance Relationship Specialty Start Date End Date Alphonso Murphy MD PCP - General 10/22/[address] [place] [address] documented as of this encounter
--- OUTSIDE RECORDS SUMMARY | 2022-04-21 10:58 | XMS_ITS | Encounter Summary ---
:1955 Author Organization [facility] Address [address] [place] [address] Care Team Providers Name Role Phone Unavailable Primary Care Provider Unavailable Encounter Details Date Type Department Care Team Description 03/22/2014 Hospital Encounter [facility] Ophelia Unknown, Provider, [facility] [address] [facility] [phone] [place] [address] (Work) [phone] Social History Tobacco Use Types Packs/Day Years Used Date Never Assessed Sex Assigned at Date Recorded Not on file documented as of this encounter Discharge Disposition Disposition Code Departure Means Destination Home or Self Alf documented in this encounter Plan of Treatment Not on filedocumented as of this encounter Visit Diagnoses Not on filedocumented in this encounter
--- OUTSIDE RECORDS SUMMARY | 2022-04-21 10:58 | XMS_ITS | Encounter Summary ---
:1955 Author Organization [facility] Address [address] [place] [address] Care Team Providers Name Role Phone Alphonso Murphy MD Primary Care Provider Reason for Visit Reason Onset Date Comments DME 02/01/2020 Encounter Details Date Type Department Care Team Description 02/01/2020 Telephone [facility] Vincent Oreilly, PT DME Rehabilitation Therapy - [address] [place] [address] [address] [address] [place] [address] [phone] Social History Tobacco Use Types Packs/Day Years [...] Encounter - Anca Oreilly, PT - 02/01/2020 1201 EDT I returned Radha's call. She said [...] on filedocumented in this encounter Care Teams Aircraft Powerplant Repairer Relationship Specialty Start Date End Date Alphonso Murphy MD PCP - General 10/22/[address] [place] [address] documented as of this encounter
--- OUTSIDE RECORDS SUMMARY | 2022-04-21 10:58 | XMS_ITS | Encounter Summary ---
:1955 Author Organization [facility] Address [address] [place] [address] Care Team Providers Name Role Phone Alphonso Murphy MD Primary Care Provider [phone] Reason for Visit Reason Onset Date Comments Appointment Related 02/25/2020 Encounter Details Date Type Department Care Team Description 02/25/[address] [facility] Therapy, Physical Appo intment Related Rehabilitation Therapy - [address] [address] Social History Tobacco Use Types [...] her to the right. Per Marie at [facility] she needs to go thru this PT to get this item. I let the pt know that Anca is out of the office and will be returning on 02/27/20. Juli Roger MA 02/25/2020 12:40 documented in this encounter Plan of Treatment Not on filedocumented as of this encounter Visit Diagnoses Not on filedocumented in this encounter Care Teams Miller Helper Relationship Specialty Start Date End Date Alphonso Murphy MD PCP - General 10/22/[address] [place] [address] documented as of this encounter
--- OUTSIDE RECORDS SUMMARY | 2022-04-21 10:58 | XMS_ITS | Encounter Summary ---
:1955 Author Organization [facility] Address [address] [place] [address] Care Team Providers Name Role Phone Unavailable Primary Care Provider Unavailable Encounter Details Date Type Department Care Team Description 09/23/1999 Results Only [facility] - Sunitha Foss CNM [facility] [address] [place] [address] Social History Tobacco Use Types Packs/Day Years [...] Copy to: ?SUNITHA RICH CNM ? Specimen/Source: ?Entry Level Receptionist ThinPrep Last Menstrual Period: ? GYNECOLOGIC ??CYTOPATHOLOG Y ??REPORT Name: YOUNG,CYN A ? [facility] : 1955 ?? 44Y F ?Client ID: [id number] SS#: ? Clinician: RICH KEREN, SUNITHA ?? Location: [facility] ??Copy to: ?? Specimen: ?Entry Level Receptionist ThinPrep ? Source: Cervix/Endocervix ?Collected: 09/21/99 ? [...] CT(ASCP) ? Report Date : ?? 09/28/1999 IAMINTOIT Archived Tests - Final Diagnosis Text Field: Clinical History : ? Document reviewed and electronically signed by: ? Conversion ? Report Date: ??09/28/1999 00:00 End of Report Specimen Performing Organization Address City/State/ZIP Code Phon e Number [facility] [address] [place] [address] SERVICES [facility] [address] [place] [address] documented in this encounter Visit Diagnoses Not on filedocumented in this encounter
--- OUTSIDE RECORDS SUMMARY | 2022-04-21 10:58 | XMS_ITS | Encounter Summary ---
:1955 Author Organization [facility] Address [address] [place] [address] Care Team Providers Name Role Phone Brandan Fabian MD Primary Care Provider Unavailable Reason for Visit Reason Onset Date Comments Appointment Related 07/30/2019 Encounter Details Date Type Department Care Team Description 07/30/2019 Telephone [facility] Therapy, Physical Appo intment Related Rehabilitation Therapy - [address] [id number] Social History Tobacco Use Types Packs/Day Years [...] on filedocumented in this encounter Care Teams Postal Clerk Relationship Specialty Start Date End Date Brandan Fabian MD PCP - General 11/19/15 10/21/19 documented as of this encounter
--- OUTSIDE RECORDS SUMMARY | 2022-04-21 10:58 | XMS_ITS | Encounter Summary ---
:1955 Author Organization [facility] Address [address] [place] [address] Care Team Providers Name Role Phone Unavailable Primary Care Provider Unavailable Encounter Details Date Type Department Care Team Description 04/02/2011 Results Only [facility] Nataly Trotter MD Laboratory Services - [address] [place] [place] [address] [address] [facility] [place] [address] [phone] Social History Tobacco Use Types Packs/Day Years [...] JOHAN, CYN A ? Accession #: ? [id number] ? : ? 1955 (Age: 55) ??F [...] Organization Address City/State/ZIP Code Phon e Number [facility] [address] [place] [address] SERVICES JAMILA DILLARD [address] [address] documented in this encounter Visit Diagnoses Not on filedocumented in this encounter
--- OUTSIDE RECORDS SUMMARY | 2022-04-21 10:58 | XMS_ITS | Encounter Summary ---
:1955 Author Organization [facility] Address [address] [place] [address] Care Team Providers Name Role Phone Alphonso Murphy MD Primary Care Provider [phone] Encounter Details Date Type Department Care Team Description 10/31/2019 Plan of Care Documentation Social History Tobacco Use Types Packs/Day Years Used Date Never Assessed Sex Assigned at Date Recorded Not on file documented as of this encounter Progress Notes Anca Oreilly, PT - 10/31/2019 1520 EDT Outpatient Rehab Plan of Care Assessment REHABILITATION THERAPIES [facility] - [address] [address] Physical Therapy Initial Evaluation Note Wheelchair Clinic [...] do up and [place] the hills [place] [facility]. However, she has a very steep incline to get up to her home from where the [employer] van drops her off. Pain: Get discomfort [...] Current wheelchair: ?? Brand/style of primary wheelchair: [employer] HD heavy duty group 2 power chair [...] hypercapnia (HCC-CMS), COPD (chronic obstructive pulmonary disease) ([facility]), Depression, Femur fracture, left ([facility]) (2005), Hyperglycemia, Low back pain with sciatica (05/03/2014), Morbid obesity ([facility]), Multinodular goiter, DAVID treated with BiPAP, [...] home. In consultation with FABIANO Cano from [employer], a wheelchair prescription was generated and Medicaid Addendum was reviewed with Radha and signed. Patient/family education: Topic: Explained insurance conundrum she is in: Existing chair breaks down because it is not rated for hill climbing she requires to get to her home from the [facility] bus. We will try to petition [place] Medicaid for this. Learner: patient Method: verbal and handout Barriers to Learning: none noted Outcome: verbalized understanding Team communication: FABIANO Cano from [employer] was present and participatedin this entire visit. [...] to be supported where it naturally falls. Spine Nurse Goals: 8 weeks Radha will have a [...] Referring Provider: Brandan Fabian MD Funding at [place] [facility] Fax: [phone] WHEELCHAIR PRESCRIPTION 10/31/2019 Radha Masterson 1955 [address] [facility] [address] (home) Insurance Policy Number [place] Medicaid [id number] Medical/Surgical History: Past Medical History: Diagnosis Date ??? Allergic conjunctivitis ??? Asthma ??? Chronic headaches ??? Chronic respiratory failure with hypoxia and hypercapnia (HCC-CMS) ??? COPD (chronic obstructive pulmonary disease) ([facility]) ??? Depression ??? Femur fracture, left (HCC-CMS) 2005 ??? Hyperglycemia ??? Low back pain with sciatica 05/03/2014 ??? Morbid obesity ([facility]) ??? Multinodular goiter ??? DAVID treated with [...] Sitting surface to elbow (90 degrees)-10 Color [employer] Wheelchair Description Justification Supervisor Claims, style and model Group 3 Very Heavy [...] brackets Seat belt Group 24 batteries and professor of psychiatry Needs lowered joystick so she does not [...] in this encounter Care Teams Director Of Psychology Relationship Specialty Start Date End Date Alphonso Murphy MD PCP - General 10/22/[address] [place] [address] documented as of this encounter
--- OUTSIDE RECORDS SUMMARY | 2022-04-21 10:58 | XMS_ITS | Encounter Summary ---
:1955 Author Organization [facility] Address [address] [place] [address] Care Team Providers Name Role Phone Unknown, Provider Primary Care Provider Sunitha Milligan MD Primary Care Provider Reason for Visit Reason Onset Date Comments Appointment Related 11/14/2015 Encounter Details Date Type Department Care Team Description 11/14/[address] [facility] Therapy, Appointvt nt Related Rehabilitation Therapy - Outpatient, [address] [phone] Social History Tobacco Use Types Packs/Day Years Used Date Never Assessed Sex Assigned at Date Recorded Not on file documented as of this encounter Miscellaneous Notes Telephone Encounter - Eulalia Degroot - 11/14/2015 1012 EDT [facility] - [address] [address] Person providing information? Radha Arrington: self Phone number: [phone] 1. Who recommended that you be seen [...] Weight? 410lb 20. Name of Medical Vendor? [employer]. Are you receiving Physical Therapy? Occupational [...] send an additional questionnaire (if needed)? - [facility] - [address] [address] Telephone Intake Information for Scheduling NEW Patients [...] on filedocumented in this encounter Care Teams Printed Products Assembler Relationship Specialty Start Date End Date Unknown, Steffi, PCP - General 03/29/14 11/16/15 Sunitha Milligan MD PCP - General 11/17/15 11/18/[address] [place] [address] [place] [address] documented as of this encounter
--- OUTSIDE RECORDS SUMMARY | 2022-04-21 10:58 | XMS_ITS | Encounter Summary ---
:1955 Author Organization [facility] Address [address] [place] [address] Care Team Providers Name Role Phone Brandan Fabian MD Primary Care Provider Unavailable Reason for Visit Reason Onset Date Comments Returning Call 03/09/2017 DME 03/09/2017 Encounter Details Date Type Department Care Team Description 03/09/2017 Telephone [facility] Anca Oreilly, Sheryl urning Call; DME Rehabilitation Therapy - PT [address] [address] [phone] Social History Tobacco Use Types Packs/Day Years Used Date Never Assessed Sex Assigned at Date Recorded Not on file documented as of this encounter Miscellaneous Notes Telephone Encounter - Anca Oreilly, PT - 03/09/2017 1502 EDT Returned Radha's call. She saw her doctor on March 02 (did not let us know ahead of time as requested), and the doctor told her to have us mail off the paperwork he needs to fill out. I again explained to Radha that Medicare's rule is that the doctor needs to document in regular office not during face to face visit with her, and this cannot be done after the fact. I will have [employer] send for MD notes from that visit to see if by chance the documentation was done correctly, but if not she will need to schedule another face to face and let [facility] know ahead of time of the date and time. Anca Oreilly PT documented in this encounter Plan of Treatment Not on filedocumented as of this encounter Visit Diagnoses Not on filedocumented in this encounter Care Teams Bible Reader Relationship Specialty Start Date End Date Brandan Fabian MD PCP - General 11/19/15 10/21/19 documented as of this encounter
--- OUTSIDE RECORDS SUMMARY | 2022-04-21 10:58 | XMS_ITS | Encounter Summary ---
:1955 Author Organization [facility] Address [address] [place] [address] Care Team Providers Name Role Phone Brandan Fabian MD Primary Care Provider Unavailable Reason for Visit Reason Onset Date Comments Appointment Related 02/20/2016 Encounter Details Date Type Department Care Team Description 02/20/2016 Telephone [facility] Therapy, Appointme nt Related Rehabilitation Therapy - Outpatient, [address] [address] Social History Tobacco Use Types [...] on filedocumented in this encounter Care Teams Industrial Management Teacher Relationship Specialty Start Date End Date Brandan Fabian MD PCP - General 11/19/15 10/21/19 documented as of this encounter
--- OUTSIDE RECORDS SUMMARY | 2022-04-21 10:58 | XMS_ITS | Encounter Summary ---
:1955 Author Organization [facility] Address [address] [place] [address] Care Team Providers Name Role Phone Brandan Fabian MD Primary Care Provider Unavailable Encounter Details Date Type Department Care Team Description 01/13/2016 Hospital Encounter [facility] Betty Fabian MD [facility] [address] [place] [address] [place] [address] Social History Tobacco Use Types Packs/Day Years [...] Code Departure Means Destination Home or Self [facility] documented in this encounter Plan of Treatment Not on filedocumented as of this encounter Visit Diagnoses Not on filedocumented in this encounter Care Teams Otr Owner Operator Truck Driver Relationship Specialty Start Date End Date Brandan Fabian MD PCP - General 11/19/15 10/21/19 documented as of this encounter
--- OUTSIDE RECORDS SUMMARY | 2022-04-21 10:58 | XMS_ITS | Encounter Summary ---
:1955 Author Organization [facility] Address [address] [place] [address] Care Team Providers Name Role Phone Alphonso Murphy MD Primary Care Provider [phone] Encounter Details Date Type Department Care [...] on filedocumented in this encounter Care Teams Campus Coordinator Relationship Specialty Start Date End Date Alphonso Murphy MD PCP - General 10/22/19 [address] [place] [address] documented as of this encounter
--- OUTSIDE RECORDS SUMMARY | 2022-04-21 10:58 | XMS_ITS | Encounter Summary ---
:1955 Author Organization [facility] Address [address] [place] [address] Care Team Providers Name Role Phone Brandan Fabian MD Primary Care Provider Unavailable Reason for Visit Reason Onset Date Comments Appointment Related 02/20/2016 Encounter Details Date Type Department Care Team Description 02/20/2016 Telephone [facility] Therapy, Appointme nt Related Rehabilitation Therapy - Outpatient, [address] [address] Social History Tobacco Use Types Packs/Day Years Used Date Never Assessed Sex Assigned at Date Recorded Not on file documented as of this encounter Miscellaneous Notes Telephone Encounter - Juli Roger - 02/20/2016 1142 EDT Radha called back to confirm that she is able to make appointment scheduled for 03/30/16 @ [facility]. documented in this encounter Plan of Treatment Not on filedocumented as of this encounter Visit Diagnoses Not on filedocumented in this encounter Care Teams City Bus Driver Relationship Specialty Start Date End Date Brandan Fabian MD PCP - General 11/19/15 10/21/19 documented as of this encounter
--- OUTSIDE RECORDS SUMMARY | 2022-04-21 10:58 | XMS_ITS | Encounter Summary ---
:1955 Author Organization [facility] Address [address] [place] [address] Care Team Providers Name Role Phone Alphonso Murphy MD Primary Care Provider [phone] Reason for Visit Reason Onset Date Comments Appointment Related 01/22/2020 Encounter Details Date Type Department Care Team Description 01/22/2020 Telephone [facility] Therapy, Physical Appo intment Related Rehabilitation Therapy - [address] [address] Social History Tobacco Use Types [...] in two business days time here at [facility]. She confirmed her availability for this date. Juli Roger MA 01/22/2020 15:01 documented in this encounter Plan of Treatment Not on filedocumented as of this encounter Visit Diagnoses Not on filedocumented in this encounter Care Teams Packager And Strapper Relationship Specialty Start Date End Date Alphonso Murphy MD PCP - General 10/22/[address] [place] [address] documented as of this encounter
--- OUTSIDE RECORDS SUMMARY | 2022-04-21 10:58 | XMS_ITS | Encounter Summary ---
:1955 Author Organization [facility] Address [address] [place] [address] Care Team Providers Name Role Phone Unavailable Primary Care Provider Unavailable Reason for Visit Reason Onset Date Comments Appointment Related 11/24/2010 Encounter Details Date Type Department Care Team Description 11/24/2010 Telephone [facility] Anca Oreilly, [place] ointment Related Rehabilitation Therapy - PT [address] [address] [phone] Social History Tobacco Use Types Packs/Day Years Used Date Never Assessed Sex Assigned at Date Recorded Not on file documented as of this encounter Miscellaneous Notes Telephone Encounter - Jayshree Anderson - 11/26/2010 1531 EDT I called Radha back and asked if she'd like to schedule a wheelchair evaluation and she said she's decided not to work with [employer] and instead contacted [facility], she now has a power chair and stated this is working well for her and has no P.T needs. I've notified Dontrel at [facility] [employer] of this. elephone Encounter - Jayshree Anderson - 11/24/2010 1509 EDT Left message at home number requesting return call to schedule wheelchair evaluation. documented in this encounter Plan of Treatment Not on filedocumented as of this encounter Visit Diagnoses Not on filedocumented in this encounter
--- OUTSIDE RECORDS SUMMARY | 2022-04-21 10:58 | XMS_ITS | Encounter Summary ---
:[address] [facility] Address [address] [place] [address] Care Team Providers Name Role Phone Brandan Fabian MD Primary Care Provider Unavailable Reason for Visit Reason Onset Date Comments Appointment Related 10/05/2019 Encounter Details Date Type Department Care Team Description 10/05/[address] [facility] Therapy, Appointme nt Related Rehabilitation Therapy - Outpatient, [address] [address] Social History Tobacco Use Types [...] Anca Oreilly. Patient has confirmed appointment. Awaiting [facility] approval which will come via email. DEONTE GUY MA 10/05/2019 9:54 documented in this encounter Plan of Treatment Not on filedocumented as of this encounter Visit Diagnoses Not on filedocumented in this encounter Care Teams Ham Rolling Machine Operator Relationship Specialty Start Date End Date Brandan Fabian MD PCP - General 11/19/15 10/21/19 documented as of this encounter
--- OUTSIDE RECORDS SUMMARY | 2022-04-21 10:58 | XMS_ITS | Encounter Summary ---
:[address] [facility] Address [address] [place] [address] Care Team Providers Name Role Phone Brandan Fabian MD Primary Care Provider Unavailable Reason for Visit Reason Onset Date Comments Appointment Related 08/06/2019 Encounter Details Date Type Department Care Team Description 08/06/2019 Telephone [facility] Therapy, Appointme nt Related Rehabilitation Therapy - Outpatient, [address] [id number] Social History Tobacco Use Types Packs/Day Years Used Date Never Assessed Sex Assigned at Date Recorded Not on file documented as of this encounter Miscellaneous Notes Telephone Encounter - Deonte Guy MA - 08/06/2019 1202 EST VM message asking that patient call back into the wheelchair clinic to do the necessary intake in order to be scheduled to be seen by the wheelchair clinic. DEONTE GUY MA 08/06/2019 12:02 documented in this encounter Plan of Treatment Not on filedocumented as of this encounter Visit Diagnoses Not on filedocumented in this encounter Care Teams Hvac/R Service Technician Relationship Specialty Start Date End Date Brandan Fabian MD PCP - General 11/19/15 10/21/19 documented as of this encounter
--- OUTSIDE RECORDS SUMMARY | 2022-04-21 10:58 | XMS_ITS | Encounter Summary ---
:1955 Author Organization [facility] Address [address] [place] [address] Care Team Providers Name Role Phone Brandan Fabian MD Primary Care Provider Unavailable Reason for Visit Reason Onset Date Comments Appointment Related 03/08/2017 Encounter Details Date Type Department Care Team Description 03/08/2017 Telephone [facility] Therapy, Physical Appo intment Related Rehabilitation Therapy - [address] [id number] Social History Tobacco Use Types Packs/Day Years [...] on filedocumented in this encounter Care Teams Rotary Derrick Operator Relationship Specialty Start Date End Date Brandan Fabian MD PCP - General 11/19/15 10/21/19 documented as of this encounter
--- OUTSIDE RECORDS SUMMARY | 2022-04-21 10:58 | XMS_ITS | Encounter Summary ---
:1955 Author Organization [facility] Address [address] [place] [address] Care Team Providers Name Role Phone Alphonso Murphy MD Primary Care Provider [phone] Reason for Visit Reason Onset Date Comments Appointment Related 10/29/2019 Encounter Details Date Type Department Care Team Description 10/29/2019 Telephone [facility] Therapy, Physical Appo intment Related Rehabilitation Therapy - [address] [address] Social History Tobacco Use Types [...] on filedocumented in this encounter Care Teams Mini Bar Attendant Relationship Specialty Start Date End Date Alphonso Murphy MD PCP - General 10/22/[address] [place] [address] documented as of this encounter
== END ==
PROVIDERS: PCP Family Medicine; Visit Provider Nurse Practitioner Family
DX: M25.562 Pain in left knee (principal); M79.662 Pain in left lower leg; M85.88 Other specified disorders of bone density and structure, other site; Z96.652 Presence of left artificial knee joint
CPT/HCPCS: 73562

== ENCOUNTER 2022-04-26 22:10 | Outpatient (REF) | payer MEDICARE, MEDICAID, SELFPAY ==
[2022-04-26 21:45] LABS: Abs Immature Grans 0.03 10^3/uL (0.0-0.06); Absolute Basophil Count 0.03 10^3/uL (0.0-0.2); Absolute Eosinophil Count 0.25 10^3/uL (0.0-0.7); Absolute Lymphocyte Count 2.42 10^3/uL (1.2-3.4); Absolute Monocyte Count 1.04 10^3/uL (0.1-0.8); Absolute Neutrophil Count 6.76 10^3/uL (1.2-6.7); Basophils % 0.3; Eosinophils % 2.4; HCT 41.7 % (36.0-46.0); HGB 13.9 g/dL (11.2-15.7); Immature Grans % 0.3; MCH 29.1 pg (27.0-33.0); MCHC 33.3 % (32.0-36.0); MCV 87 fL (80-95); MPV 11.2 fL (8.0-11.0); Monocytes % 9.9; Neutrophils % 64.1; Platelet Count 388 10^3/uL (130-400); RBC 4.78 10^6/uL (3.93-5.22); RDW-SD 45.4 fL; WBC 10.53 10^3/uL (4.4-10.8)
[2022-04-26 21:47] LABS: C-Reactive Protein 5.54 mg/dL (0.0-0.3)
[2022-04-26 21:49] LABS: ESR 68 mm/hr (0-30)
== END 2022-04-26 22:11 | disposition home or self-care (01) ==
LOC: LBN 22:10
PROVIDERS: PCP Family Medicine; Visit Provider Physician Assistant Medical
DX: R70.0 Elevated erythrocyte sedimentation rate; R79.82 Elevated C-reactive protein (CRP); Z00.01 Encounter for general adult medical examination with abnormal findings; D64.9 Anemia, unspecified
CPT/HCPCS: 85652; 85025; 86140

== ENCOUNTER 2022-05-01 13:49 | Emergency (ER) | payer MEDICARE, SELFPAY ==
[2022-05-01 14:00] VITALS: BP 144/66; PULSE 72; TEMP 37.3; O2SAT 3
--- NOTE | 2022-05-01 14:34 | ED.GENADUL_ITS ---
Discharge Plan Disposition Patient Disposition: HOME Condition: Stable Discharge Details Clinical Impression: Leg pain, left Primary Care Provider: Alphonso Murphy ED Provider: Vamsi Shaikh Home Meds and New Rx's Prescriptions: New sulfamethoxazole-trimethoprim [Bactrim DS] 800-160 mg tablet 1 tab PO BID Qty: 20 0RF No Action triamcinolone acetonide 0.1 % cream 1 applic Topical BID PRN (Reason: rash on legs) Qty: 30 2RF prednisone 20 mg tablet 10 - 40 mg PO DAILY Qty: 12 0RF Rx Instructions: 2 /day for 3 days, then 1 /day for 4 days, then 1/2 day for 4 days furosemide 40 mg tablet 80 mg PO DAILY Qty: 90 3RF Rx Instructions: per education officer at [facility] metformin 1,000 mg tablet 1,000 mg PO BID Qty: 180 3RF fluticasone propionate [Flonase Allergy Relief] 50 mcg/actuation spray,suspension 1 spray NS DAILY Qty: 1 8RF clotrimazole 1 % cream 1 applic topical TID Qty: 30 2RF nystatin 100,000 unit/gram powder 1 applic TP BID PRN (Reason: intertrigo) Qty: 30 5RF ketotifen fumarate [Zaditor] 0.025 % (0.035 %) drops 1 drp OP BID PRN (Reason: allergy symptoms) Qty: 5 2RF Rx Instructions: administer at least 8 hours apart cephalexin 500 mg tablet 500 mg PO QID Qty: 28 0RF tramadol 50 mg tablet 50 mg PO Q8H PRN (Reason: pain) Qty: 10 0RF ipratropium-albuterol 0.5 mg-3 mg(2.5 mg base)/3 mL solution for nebulization 3 ml IH QID MDD 4 nebs Qty: 180 3RF cefuroxime axetil 500 mg tablet 500 mg PO BID Qty: 10 0RF ascorbic acid (vitamin C) 1,000 MG tablet 1,000 mg PO DAILY (DME) Aerochamber Mini 1 EACH spacer 1 ea Inhalation PRN Qty: 1 Rx Instructions: DIRECTED WITH INHALER BiPAP Inhalation Gas 5 l IN DIRECTED Rx Instructions: sleep apnea ([facility] sleep lab 2013) uses with oxygen oxygen Inhalation 2 l Intranasal DIRECTED Label Comments: Continuous and uses with bipap Rx Instructions: 2L/NC continuous montelukast [Singulair] 10 mg tablet 10 mg PO DAILY Qty: 30 11RF albuterol sulfate [ProAir HFA] 90 mcg/actuation HFA aerosol inhaler 1 - 2 puff Inhalation Q6H PRN Qty: 1 11RF citalopram [Celexa] 20 mg tablet 20 mg PO DAILY Qty: 90 3RF ketoconazole 2 % cream 1 applic topical BID PRN (Reason: rash) Qty: 60 1RF betamethasone, augmented 0.05 % lotion 1 applic topical BID PRN (Reason: allergic reaction) Qty: 60 2RF tizanidine 2 mg tablet 2 mg PO Q8H PRN (Reason: muscle spasticity) Qty: 20 0RF alclometasone 0.05 % cream 1 applic topical BID PRN (Reason: itching) Qty: 45 1RF levothyroxine [Levo-T] 175 mcg tablet 175 mcg PO DAILY Qty: 90 3RF aspirin 325 MG tablet 325 mg PO DAILY Qty: 0 0RF prednisone 50 mg tablet 50 mg PO DAILY Qty: 4 0RF doxycycline hyclate 100 mg capsule 100 mg PO BID Qty: 14 0RF prednisone 20 mg tablet 40 mg PO DAILY Qty: 10 0RF amoxicillin-pot clavulanate 875-125 mg tablet 1 tab PO BID Qty: 14 0RF Discharge Instructions Instructions: Leg Pain (ED) Additional Instructions: Examination is concerning for cellulitis. Continue taking Keflex as directed and add on Bactrim. Rest, elevate, warm compresses every 2 hours for 20 minutes. Please watch for new or worsening symptoms and return to the ER for any concerns. I am setting you up for an ultrasound of your left lower extremity on Tuesday, the department should be reaching out to you but if you do not hear from them first thing Tuesday morning I recommend contacting the radiology department. He will sign in as an outpatient and have your ultrasound and then you will return to the ER for results and reevaluation. Medical Decision Making 67-year-old female with a complicated past medical history presents to the ER reporting ongoing left leg pain, cellulitis, having been on Keflex for the past 3 days as prescribed by her primary care provider. She denies fever, chest pain, change of her baseline shortness of breath, calf pain. She reports a history of PE but denies DVT she is not anticoagulated. She states that the PE was caused after I fell. At this time she appears to be in no acute distress, O2 sat is appropriate in the mid 90s on her typical 3 L nasal cannula, no evidence of tachycardia. While her examination is difficult given her body habitus, her left inner thigh does appear to be tender with some erythema. No lymphangitic streaking or obvious abscess. Pulses were obtained bilateral lower extremities. Negative Homans' sign left lower extremity. Plan is to obtain IV access, CBC, CMP, to further evaluate for potential significant leukocytosis. I will also set her up for an ultrasound of her left lower extremity Tuesday morning. Laboratory values reveal minimal nonspecific leukocytosis of 11.38. Creatinine 0.8 with a GFR of 81.21. Given her minimal nonspecific leukocytosis, I do not believe that she requires IV antibiotics or admission. She has had 3 days worth of oral Keflex and I will provide a single dose of Bactrim double strength now, a take-home pack over the weekend, and a prescription for a total of 10 days. I will also set her up for an ultrasound of her left lower extremity to rule out potential DVT, paperwork completed and I have recommended if she does not hear from the department to contact them first thing Tuesday. If at that time the ultrasound is unremarkable, her symptoms are worsening, then repeat laboratory values, IV antibiotics and potential admission may be indicated. Given her complicated past medical history, high fall risk, low suspicion for DVT, will not empirically anticoagulate. Strict discharge and return precautions were provided. Patient understands, is agreeable to this plan, and has no additional questions or concerns upon discharge. This documentation was generated using [employer]ble[employer] system, please disregard any oddities of phrase or misspellings. Medical Records Medical records reviewed: Yes I reviewed the patient's medical records. Lab Data Lab results reviewed: Yes I reviewed the patient's lab results. Labs: Laboratory Tests Range/Units 05/01/22 05/01/22 14:54 14:54 WBC (4.4-10.8) 10^3/uL 11.38 H RBC (3.93-5.22) 10^6/uL 4.81 Hgb (11.2-15.7) g/dL 13.9 Hct (36.0-46.0) % 42.2 MCV (80-95) fL 88 MCH (27.0-33.0) pg 28.9 MCHC (32.0-36.0) % 32.9 RDW (11.7-14.6) % 13.3 Plt Count (130-400) 10^3/uL 392 MPV (8.0-11.0) fL 10.0 Immature Gran % 0.4 Neutrophils % 70.9 Lymphocytes % 17.0 Monocytes % 9.3 Eosinophils % 2.0 Basophils % 0.4 Nucleated RBC % (0.0-0.3) % 0.0 Absolute Neutrophils (1.2-6.7) 10^3/uL 8.07 H Absolute Lymphocytes (1.2-3.4) 10^3/uL 1.93 Absolute Monocytes (0.1-0.8) 10^3/uL 1.06 H Absolute Eosinophils (0.0-0.7) 10^3/uL 0.23 Absolute Basophils (0.0-0.2) 10^3/uL 0.05 Sodium (136-145) mmol/L 137 Potassium (3.5-5.1) mmol/L 3.7 Chloride (98-107) mmol/L 98 Carbon Dioxide (21.0-32.0) mmol/L 32.4 H Anion Gap (3-11) mmol/L 6.6 BUN (7-18) mg/dL 11 Creatinine (0.55-1.02) mg/dL 0.8 Est GFR (CKD-EPI 2020) (mL/min/1.73m2) 81.21 Glucose (74-106) mg/dL 103 Calcium (8.5-10.1) mg/dL 8.2 L Total Bilirubin (0.2-1.0) mg/dL 1.6 H AST (15-37) U/L 25 ALT (14-59) U/L 20 Alkaline Phosphatase (46-116) U/L 79 Total Protein (6.4-8.2) g/dL 7.9 Albumin (3.4-5.0) g/dL 2.7 L HPI General Mode of arrival: wheelchair (motorized) . Date/Time Provider Initiated Documentation: 05/01/22 14:00 . Limitations to Documentation: no limitations . Information obtained by: patient . HPI Narrative: This is a 67-year-old female with a past medical history that includes COPD, DM, O2 dependent, 3 L at baseline, thyroid disease, chronic low back pain, morbid obesity, depression, history of PE but no known DVT, denies current anticoagulation, presents to the ER reporting of left lower leg pain, concern for infection. Patient states that she noted some discomfort in her left leg over the past week or so associated with some redness and swelling. She denies fever, chest pain, change of her chronic shortness of breath. Patient states that she was seen by her PCP 3 days ago and started on Keflex but denies symptoms improving. Related Data Home Medications Medication Instructions Recorded Confirmed ascorbic acid (vitamin C) 1,000 mg 1,000 mg PO DAILY 11/25/12 04/28/22 tablet inhalational spacing device ##1 12/21/13 04/28/22 (Aerochamber Mini) Bipap 5 l IN DIRECTED 07/23/14 04/28/22 Oxygen 2 l intranasal DIRECTED 12/24/14 04/28/22 aspirin 325 mg tablet 325 mg PO DAILY #0 tab-caps 06/22/15 04/28/22 triamcinolone acetonide 0.1 % 1 applic topical BID PRN rash on 12/22/18 05/01/22 topical cream legs #30 grams clotrimazole 1 % topical cream 1 applic topical TID #30 grams 02/20/19 04/28/22 nystatin 100,000 unit/gram topical 1 applic topical BID PRN 02/20/19 04/28/22 powder intertrigo #30 grams ketotifen fumarate 0.025 % (0.035 1 drp ophthalmic (eye) BID PRN 04/27/19 04/28/22 %) eye drops (Zaditor) allergy symptoms #5 mL montelukast 10 mg tablet 10 mg PO DAILY #30 tabs 01/29/20 04/28/22 (Singulair) albuterol sulfate 90 mcg/actuation 1 - 2 puff inhalation Q6H PRN ##1 06/06/20 04/28/22 aerosol inhaler (ProAir HFA) citalopram 20 mg tablet (Celexa) 20 mg PO DAILY #90 tab-caps 06/06/20 04/28/22 prednisone 50 mg tablet 50 mg PO DAILY #4 tabs 07/08/20 04/28/22 prednisone 20 mg tablet 10 - 40 mg PO DAILY #12 tabs 07/15/20 04/28/22 fluticasone propionate 50 1 spray NS DAILY ##1 01/14/21 04/28/22 mcg/actuation nasal spray,suspension (Flonase Allergy Relief) furosemide 40 mg tablet 80 mg PO DAILY #90 tabs 01/14/21 04/28/22 metformin 1,000 mg tablet 1,000 mg PO BID #180 tabs 01/14/21 04/28/22 ketoconazole 2 % topical cream 1 applic topical BID PRN rash #60 01/30/21 04/28/22 grams betamethasone, augmented 0.05 % 1 applic topical BID PRN allergic 06/20/21 04/28/22 lotion reaction #60 mL tizanidine 2 mg tablet 2 mg PO Q8H PRN muscle spasticity 10/07/21 05/01/22 #20 tabs alclometasone 0.05 % topical cream 1 applic topical BID PRN itching 10/16/21 04/28/22 #45 grams doxycycline hyclate 100 mg capsule 100 mg PO BID #14 caps 11/17/21 04/28/22 prednisone 20 mg tablet 40 mg PO DAILY #10 tabs 11/17/21 04/28/22 amoxicillin 875 mg-potassium 1 tab PO BID #14 tabs 03/30/22 04/28/22 clavulanate 125 mg tablet cefuroxime axetil 500 mg tablet 500 mg PO BID copd exacerb #10 tabs 04/07/22 04/28/22 ipratropium 0.5 mg-albuterol 3 mg 3 ml inhalation QID COPD 04/07/22 04/28/22 (2.5 mg base)/3 mL nebulization exacerbation/wheezing #180 mL soln levothyroxine 175 mcg tablet 175 mcg PO DAILY #90 tabs 04/13/22 05/01/22 (Levo-T) cephalexin 500 mg tablet 500 mg PO QID #28 tabs 04/28/22 04/28/22 tramadol 50 mg tablet 50 mg PO Q8H PRN pain #10 tabs 04/28/22 05/01/22 sulfamethoxazole 800 1 tab PO BID #20 tabs 09/17/22 mg-trimethoprim 160 mg tablet (Bactrim DS) Previous Rx's Medication Instructions Recorded aspirin 325 mg tablet 325 mg PO DAILY #0 tab-caps 06/22/15 triamcinolone acetonide 0.1 % 1 applic topical BID PRN rash on 12/22/18 topical cream legs #30 grams clotrimazole 1 % topical cream 1 applic topical TID #30 grams 02/20/19 nystatin 100,000 unit/gram topical 1 applic topical BID PRN 02/20/19 powder intertrigo #30 grams ketotifen fumarate 0.025 % (0.035 1 drp ophthalmic (eye) BID PRN 04/27/19 %) eye drops (Zaditor) allergy symptoms #5 mL montelukast 10 mg tablet 10 mg PO DAILY #30 tabs 01/29/20 (Singulair) albuterol sulfate 90 mcg/actuation 1 - 2 puff inhalation Q6H PRN ##1 06/06/20 aerosol inhaler (ProAir HFA) citalopram 20 mg tablet (Celexa) 20 mg PO DAILY #90 tab-caps 06/06/20 prednisone 50 mg tablet 50 mg PO DAILY #4 tabs 07/08/20 prednisone 20 mg tablet 10 - 40 mg PO DAILY #12 tabs 07/15/20 fluticasone propionate 50 1 spray NS DAILY ##1 01/14/21 mcg/actuation nasal spray,suspension (Flonase Allergy Relief) furosemide 40 mg tablet 80 mg PO DAILY #90 tabs 01/14/21 metformin 1,000 mg tablet 1,000 mg PO BID #180 tabs 01/14/21 ketoconazole 2 % topical cream 1 applic topical BID PRN rash #60 01/30/21 grams betamethasone, augmented 0.05 % 1 applic topical BID PRN allergic 06/20/21 lotion reaction #60 mL tizanidine 2 mg tablet 2 mg PO Q8H PRN muscle spasticity 10/07/21 #20 tabs alclometasone 0.05 % topical cream 1 applic topical BID PRN itching 10/16/21 #45 grams doxycycline hyclate 100 mg capsule 100 mg PO BID #14 caps 11/17/21 prednisone 20 mg tablet 40 mg PO DAILY #10 tabs 11/17/21 amoxicillin 875 mg-potassium 1 tab PO BID #14 tabs 03/30/22 clavulanate 125 mg tablet cefuroxime axetil 500 mg tablet 500 mg PO BID copd exacerb #10 tabs 04/07/22 ipratropium 0.5 mg-albuterol 3 mg 3 ml inhalation QID COPD 04/07/22 (2.5 mg base)/3 mL nebulization exacerbation/wheezing #180 mL soln levothyroxine 175 mcg tablet 175 mcg PO DAILY #90 tabs 04/13/22 (Levo-T) cephalexin 500 mg tablet 500 mg PO QID #28 tabs 04/28/22 tramadol 50 mg tablet 50 mg PO Q8H PRN pain #10 tabs 04/28/22 sulfamethoxazole 800 1 tab PO BID #20 tabs 05/01/22 mg-trimethoprim 160 mg tablet (Bactrim DS) Allergies Allergy/AdvReac Type Severity Reaction Status Date / Time hydrocodone Allergy Severe ITCHING Verified 04/16/22 08:36 morphine Allergy Mild PRURITIS Verified 04/16/22 08:36 oxycodone Allergy Mild ITCHING Verified 04/16/22 08:36 General Stated Complaint: Cellulitis REUBEN: 3 Review of Systems Constitutional Constitutional: Denies fever(s) and Denies weakness Cardiovascular Cardiovascular: Denies chest pain and Reports dyspnea (Baseline) Respiratory Respiratory: Reports cough (Chronic) and Reports dyspnea (Baseline) Gastrointestinal Gastrointestinal: Denies abdominal pain, Denies nausea and Denies vomiting Musculoskeletal Musculoskeletal: Reports back pain (Low, chronic), Denies numbness and Denies tingling Integumentary/Breasts Skin/Breast: Reports erythema Neurologic Neurologic: Denies numbness, Denies tingling and Denies weakness Hematologic/Lymphatic Hematologic/Lymphatic: Denies easy bleeding and Denies easy bruising PFSH All Active Problems Leg pain, left (Acute) Distal radius fracture, right (Acute) Avulsion fracture (Acute) middle finger, proximal phalanx. COPD exacerbation (Acute) Knee pain, left (Acute) Right carpal tunnel syndrome (Acute) Bilateral hand pain (Acute) Thyroid disease (Acute) Viral URI (Acute) Low back pain (Acute) Chest wall pain (Acute) Dysphagia (Acute) Conductive hearing loss, external ear (Acute) Impacted cerumen, left ear (Acute) Ulcer of right lower extremity (Acute) Bronchitis (Acute) Cellulitis of leg, right (Acute) Fever (Acute) Thyroid enlargement (Acute) S/p thyroidectomy 2020 Mixed conductive and sensorineural hearing loss of both ears (Acute) Allergic sinusitis (Acute) Hyperglycemia (Acute) DAVID (obstructive sleep apnea) (Chronic) Community acquired pneumonia (Acute) COPD exacerbation (Acute) Sprain of scapholunate ligament (Acute 03/21/19) Allergic conjunctivitis (Acute) Wrist pain, right (Acute) Chronic obstructive pulmonary disease (Chronic) Chest pain (Acute 07/23/14) History of fasciotomy (Acute) Pleural effusion on right (Acute 05/03/14) Status post total bilateral knee replacement (Acute) Discharge planning issues (Acute) Chronic respiratory failure with hypoxia and hypercapnia (Chronic) Grief at loss of child (Acute) Depression (Chronic) Varicose veins of lower extremity (Chronic) Low back pain with sciatica (Chronic 05/03/14) CT at [facility] L34 spinal stenosis Advance directive on file (Acute) DVT prophylaxis (Acute) Sensorineural hearing loss, bilateral (Chronic 08/29/13) Morbid obesity (Acute 04/05/13) Knee pain, bilateral (Chronic 07/23/14) s/p bilat TKR (left infected with mult surg and decreased mobility) Goiter, nontoxic, 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 PFTs 09/2012 showed an FEV1 of 60% with improvement to 80% with bronchodilator, thought to be severe restrictive disease. Depressive disorder (Chronic) Insomnia with sleep apnea (Chronic) Obstructive sleep apnea syndrome (Chronic) Chronic headaches (Chronic) Recent Neurology consult for possible papilledema. Urinary incontinence (Chronic) On Detrol Recurrent UTI (Chronic) History of Surgical Procedure (Chronic) a. Right and left toal knee replacements. b. Left knee has been repeatedly operated on with slava surgies, three replacements. Pneumonia (Acute) finish steroids and antibiotics Right ventricular dysfunction (Chronic) Surgical History Fasciotomy, Foot (~1996) LEFT Replacement of total knee joint Bilateral; left-became [id number] surgeries Family History Mother Diabetes Personal history of malignant neoplasm LUNG Father Personal history of malignant neoplasm BRAIN Grandfather No problems noted. Grandfather No problems noted. Grandmother No problems noted. Grandmother No problems noted. Social History Smoking/Tobacco Use Status: Former Tobacco Use tobacco type: cigarettes Quit Date: 01/21/21 Second Hand Exposure: Yes Smoking risk assessment performed?: Yes Alcohol Intake: never Drug use: Never Substance use type: does not use Communication Needs: Hard of Hearing and Corrective Lenses Pets and animals: Yes Pets and animals: cat(s) Sexually active: Yes Current gender identity: female What is your relationship status?: never How often do you talk on the phone with friends or family?: decline to answer How often do you get together with friends or relatives?: decline to answer How often do you attend taoism or gnosticist services?: decline to answer Do you belong to any clubs or organized social groups?: no Panel score (0-1 are the most socially isolated patients): 0 Seatbelt use: never Do you feel safe at home: Yes Do you feel safe in your relationship?: Yes Exam Const General: cooperative, comfortable, no acute distress and ill appearing chronically Orientation: alert, awake and oriented x3 HENMT Head: normal to inspection, normocephalic and atraumatic Eyes Conjunctivae: conjunctivae normal Neck Neck: normal visual inspection, full ROM, trachea midline and supple Resp Effort & Inspection: normal respiratory effort and able to speak in complete sentences Auscultation: diminished lung sounds bilaterally in the lower lung dubose Cardio Rate: regular rate Rhythm: regular rhythm GI Inspection: obesity Skin General skin exam: erythema Neuro General: patient alert, patient awake, moves all extremities and no focal motor deficits Cognition: normal cognition Motor: muscle tone normal throughout Sensory Exam: no sensory deficits noted Extrem General: full ROM and capillary refill normal Upper/lower leg/hip images: 1. Patient with severe bilateral lymphedema and this makes the examination much more difficult. Difficult to determine whether the legs are symmetric or not. Bilateral Doppler pulses were obtained. As marked by figure 1, there is erythema, warmth, tenderness. Skin is intact. There is no lymphangitic streaking. Negative Homans' sign. Normal capillary refill. Psych Appearance: grossly normal Mental Status: mental status grossly normal Course Vital Signs Vital signs: Vital Signs Temperature 37.3 C 05/01/22 14:00 Pulse 72 05/01/22 14:00 Blood Pressure 144/66 H 05/01/22 14:00 Pulse Oximetry 3 L 05/01/22 14:00 Temperature 37.3 C 05/01/22 14:00 Temperature Source Temporal Artery Scan 05/01/22 14:00 Pulse 72 05/01/22 14:00 Blood Pressure 144/66 H 05/01/22 14:00 Blood Pressure Position Sitting 05/01/22 14:00 Pulse Oximetry 3 L 05/01/22 14:00 Oxygen Delivery Method Nasal Cannula 05/01/22 14:00 Pain Level 10 05/01/22 14:00
[2022-05-01 15:06] LABS: Abs Immature Grans 0.04 10^3/uL (0.0-0.06); Absolute Eosinophil Count 0.23 10^3/uL (0.0-0.7); Absolute Lymphocyte Count 1.93 10^3/uL (1.2-3.4); Absolute Monocyte Count 1.06 10^3/uL (0.1-0.8); Basophils % 0.4; HCT 42.2 % (36.0-46.0); HGB 13.9 g/dL (11.2-15.7); Immature Grans % 0.4; MCH 28.9 pg (27.0-33.0); MCHC 32.9 % (32.0-36.0); MCV 88 fL (80-95); Monocytes % 9.3; Neutrophils % 70.9; Platelet Count 392 10^3/uL (130-400); RBC 4.81 10^6/uL (3.93-5.22); RDW 13.3 % (11.7-14.6); RDW-SD 43.5 fL; WBC 11.38 10^3/uL (4.4-10.8)
[2022-05-01 15:12] LABS: Absolute Basophil Count 0.05 10^3/uL (0.0-0.2); Absolute Neutrophil Count 8.07 10^3/uL (1.2-6.7)
[2022-05-01 15:24] LABS: ALT 20 U/L (14-59); AST 25 U/L (15-37); Albumin 2.7 g/dL (3.4-5.0); Alkaline Phosphatase 79 U/L (46-116); Anion Gap 6.6 mmol/L (3-11); BUN 11 mg/dL (7-18); Bilirubin, Total 1.6 mg/dL (0.2-1.0); CO2 32.4 mmol/L (21.0-32.0); CREATININE 0.8 mg/dL (0.55-1.02); Calcium 8.2 mg/dL (8.5-10.1); Chloride 98 mmol/L (98-107); Estimated GFR 81.21 (mL/min/1.73m2); Glucose 103 mg/dL (74-106); Potassium 3.7 mmol/L (3.5-5.1); Sodium 137 mmol/L (136-145); Total Protein 7.9 g/dL (6.4-8.2)
[2022-05-01 15:29] VITALS: BP 124/65; PULSE 96; RESP 18; TEMP 37.1; O2SAT 94
--- NOTE | 2022-05-01 15:46 | NUR.NOTE ---
Nursing Note:Entered pt's room, Vamsi WYLIE completing discharge instructions and plan of care, pt in agreement with plan. After this freelance copywriter attempted to complete pt assessment, pt refusing to answer some questions, SI/HI questions, pt states I do not like you, I want the other nurse, I 'm not answering these questions. Pt simultaneously working on cell phone playing [address] This freelance copywriter completed VS, pt cooperative with VS. Later returned to room to complete Medication Reconciliation. pt updating list and then refusing to continue updating medication list. Pt states I don't want you in here. This freelance copywriter left pt room. This freelance copywriter notified Vamsi WYLIE refusing to complete medication reconcilliation. Mahendra CLINTON returned to room to complete discharge and MAR.
== END 2022-05-01 16:48 | disposition home or self-care (01) ==
PROVIDERS: Emergency Provider Physician Assistant; PCP Family Medicine
DX: M79.662 Pain in left lower leg (principal); J44.9 Chronic obstructive pulmonary disease, unspecified; E11.9 Type 2 diabetes mellitus without complications; Z99.81 Dependence on supplemental oxygen; Z79.52 Long term (current) use of systemic steroids; Z79.84 Long term (current) use of oral hypoglycemic drugs; Z87.891 Personal history of nicotine dependence; I89.0 Lymphedema, not elsewhere classified; D72.829 Elevated white blood cell count, unspecified; M79.652 Pain in left thigh
CPT/HCPCS: 36415; 80053; 99283; 85025; 99284

== ENCOUNTER → 2022-05-03 08:52 | Outpatient (CLI) | payer MEDICARE, MEDICAID, SELFPAY ==
--- NOTE | 2022-05-03 | DI.US_ITS ---
Exam(s) US LOWER EXTREMITY VENOUS LT EXAM: US LOWER EXTREMITY VENOUS LT CLINICAL HISTORY: PAIN SWELLING LEFT LEG. TECHNIQUE: Lower extremity venous ultrasound performed using grayscale, color-flow, and spectral Do ppler analysis. COMPARISON: No exams were available for comparison FINDINGS: Exam is limited by patient body habitus. The mid through distal femoral vein as well as popliteal ve in were not visualized. The common femoral, femoral and profundus femoral veins demonstrate normal c ompressibility, augmentation, and color Doppler. The posterior tibial veins are patent. No saphenous vein thrombosis or other superficial venous thrombosis is seen. No hematoma or Sanders's cyst is seen . IMPRESSION: Limited exam. No evidence of DVT. DATA REPOSITORY:
--- OUTSIDE RECORDS SUMMARY | 2022-05-03 09:08 | XMS_ITS | Encounter Summary ---
:1955 Author Organization [facility] [place] [address] Care Team Providers Name Role Phone Alphonso Cerna MD Primary Care Provider [phone] Reason for Visit Reason Comments Leg Pain Auth/Cert Specialty Diagnoses / Procedures Referred By Contact Refer red To Contact Diagnoses Cellulitis of right leg Cellulitis of leg, right Procedures ER IPI Referral ID Status Reason Start Date Expiration Date Visits Requ ested Visits Authorized [id number] 1 1 Encounter Details Date Type Department Care Team Description 04/05/2021 - Hospital Encounter 1 [facility] Blanquita Troncoso MD [facility] [place] [address] Cellulitis of right leg (Primary Dx); [facility] [place] [address] Cellulitis of leg, right; [facility] [place] [address] Venous stasis ulcer of right calf limite d to breakdown of skin, unspecified whether varicose veins present; [facility] Venous in sufficiency of both [place] [address] Social History Tobacco Use Types Packs/Day [...] Magana Young Patient Age: 65 y.o. Language: Icelandic Race: White Ethnicity: Not nor Admit date: [...] please contact your inpatient physician through the [facility] Machinist Apprentice Wood . Issues after hours and on weekends [...] and obesity (BMI 80) who presents to [facility] ER 04/05 with RLE ulcer pain and [...] of this test was determined by the [facility] Molecular Pathology Laboratory. It has been cleared [...] REMOVE Please contact the Blood Bank at [phone] for questions. ??? Iodine And Iodide Containing [...] 04/13/2021 2:30 PM Amy Germain APRN Wound [facility] 07/28/2021 10:30 AM Mike Robles MD [facility] PULM [facility] Your Inpatient Doctor: BLANQUITA BLEVINS HOWARD J HAUGHEY, DAVID M Your Primary Care Provider: Alphonso Cerna MD For questions regarding this document or issues relating to this hospitalization on the Medical Service, please contact your inpatient physician through the [facility] Machinist Apprentice [employer] . Issues after hours and on weekends [...] PM Amy Germain APRN Wound Care at [facility] [place] [facility] Arrive at: International Account Representative Area 4M [phone] 07/28/2021 10:30 AM Mike Robles MD Pulmonology at [facility] Arrive at: International Account Representative Area [phone] Discharge References/Attachments Cellulitis (Icelandic) documented in this encounter Discharge Instructions Discharge [...] 04/13/2021 2:30 PM Amy Germain APRN Wound [facility] 07/28/2021 10:30 AM Mike Robles MD [facility] PULM [facility] Your Inpatient Doctor: BLANQUITA BLEVINS HOWARD J HAUGHEY, DAVID M Your Primary Care Provider: Alphonso Cerna MD For questions regarding this document or issues relating to this hospitalization on the Medical Service, please contact your inpatient physician through the [facility] Machinist Apprentice [employer] . Issues after hours and on weekends will be handled by the Hospitalist staff on-call. YOU ARE SCHEDULED FOR A FOLLOW UP APPOINTMENT WITH YOUR PRIMARY CARE PROVIDER, DR ALPHONSO CERNA ON 04/15/2021 AT 11:00AM AttachmentsThe following attachments cannot be sent through Care Everywhere. Cellulitis (Icelandic)documented in this encounter Medications at Time of [...] 06/2019 (FLONASE) 50 route daily as mcg/actuation [place], needed. 04/06 Patient Suspension states that she [...] home by wheelchair van transportation services with national van owner operator. All belongings sent with patient. RONEY removed, wound dressing clean dry and intac, skin free from pressure ulcers. Discharge instructions, medications, and follow-up appointments reviewed, education provided onwound care, paper prescriptions given to patient, all questions answered. . VNA paperwork faxed. Patient instructed to call with concerns. Pt escorted to [facility] by [facility]. Sunny Hebert MD - 04/08/2021 1:42 [...] spent >30 minutes (Day of Discharge Code 24686) involved in the final examination of the [...] up as able and when appropriate. Pager: [phone] Carolina Casey OT 04/08/2021 Occupational Therapy Rehabilitation Department Jessica Nick RN - 04/08/2021 12:21 PM EDT CARE MANAGEMENT FINAL DISCHARGE NOTE Chart reviewed, care reviewed with primary team and at interdisciplinary rounds. Patient is medically ready for discharge 04/08/21. Needs for Transition of Care Plan for discharge is: Home with resumption of oxygen through [facility] and VNA through [facility]. Agency Referrals: 1) [facility] Central Intake office: tel: [phone] [place] [phone] phone [phone] fax [facility] 2) [facility]. PHONE: [phone] FAX: [phone] Transportation: Band Saw Filer spoke with patient, Radha, who states she needs assist with setting up her Medicaid Ride for transport home today once cleared medically for discharge. treasury specialist, please schedule Medicaid transport ride (patient typically uses wheelchair van through [facility]) for today at 1300 from [facility], [address], room [address] to her home at [address], [place], [place]. (Address confirmed with patient). Patient has her own motorized wheelchair on site for transport along with portable oxygen tank and her own walker. No one will be home to meet her. She has no problems accessing her home as it is handicapped access set up. Current DME: wheelchair - power, walker - rolling DME Needed at [place]: None indicated Patient is insured through: Primary Insurance: [facility] MANAGED MEDICARE Payor: [facility] MANAGED MEDICARE / Plan: [facility] MANAGED MEDICARE / Product Type: *No Product type* / Secondary Insurance: MEDICAID [place] Prescription Coverage: Yes, see above Preferred Pharmacy: See below [id number] - [place], [place] - [address] [facility] [id number] This plan was formulated with input from patient, Radha Masterson, and team. All are in agreement with plan. Jessica Nick RN Case In Flight Refueling System Repairer of Care Management Jessica Nick RN - 04/08/2021 12:15 PM EDT The patient, Radha Masterson, has been provided a list of Home Health Agencies/DME vendors which serve their preferred geographic area. A letter describing our affiliations was reviewed with them and they were educated about their right to choose where referrals are placed. CM provided patient with [facility] Star Quality Rating for Home care hand out. Patient requests resumption of oxygen referral to [facility] Central Intake office: tel: [phone] [place] [phone] phone [phone] fax [facility] . -Radha states that she has her home portable oxygen tank here with her for transport and oxygen available to her at home- Patient requests resumption of VNA services for wound care to [facility]. PHONE: [phone] FAX: [phone] Expected date of discharge: 04/08/21. Referral routed to the Radiographer Angiogram for matching with agency/vendor and to provide [...] and obesity (BMI 80) who presents to [facility] ER 04/05 with RLE ulcer pain and [...] MIVF PIV Tubes/ Drains none DVT prophylaxis PT/OT/COMPLETION SUPERVISOR Consulted Wound care Following Anticipated Disposition Home with wound care follow up Team Pager (MD Coverage 07/03): [phone] Family Update Message left 04/07 PCP Alphonso [...] of two midnights or is on the [facility] inpatient only procedure list (status C) due to: severe purulent cellulitis requiring IV antibiotics Jessica Nick RN - 04/07/2021 2:30 PM EDT Band Saw Filer attempted to speak with Radha regarding discharge planning. Unavailable. CM to continue to monitor. IVETH Loredo Pager: [phone] Jessica Nick RN - 04/07/2021 11:28 AM EDT Band Saw Filer attempted to speak with Radha regarding discharge [...] knee,??and obesity (BMI 80) who presents to [facility] ER 04/05 with RLE ulcer pain and [...] 1.57) performed by Lisa Singh MD at [facility] MAIN OR ??? PRG US GUIDE INTRAOP N/A 03/03/2021 ULTRASONIC GUIDANCE, INTRAOP (WRVU 1.2) performed by Lisa Singh MD at [facility] MAIN OR ??? PRO THYROIDECTOMY=SUBSTERNAL, TRANSCERV Bilateral 03/03/2021 THYROIDECTOMY, INCL. SUBSTERNAL, CERVICAL APPROACH (WRVU 17.62) performed by Lisa Singh MD at [facility] MAIN OR Active Non-Hospital Problems Diagnosis ??? [...] in this evaluation. Time IN / OUT: 6822-5705 Total Minutes, Physical Therapy: 15 (evaluation, low complexity) Olga Wells Pager: [phone] Physical Therapy Inpatient Rehabilitation Department Carolina Casey, OT - 04/06/2021 1:08 PM EDT Occupational Therapy Evaluation Patient profile: Radha Masterson is a 65 y.o. female admitted on 04/05/2021 with hx of pulmonary HTN, HFpEF, DAVID, bilateral LE edema, prosthetic right knee, and obesity (BMI 80) who presents to [facility] ER 04/05 with RLE ulcer pain and [...] 1.57) performed by Lisa Singh MD at [facility] MAIN OR ??? PRG US GUIDE INTRAOP N/A 03/03/2021 ULTRASONIC GUIDANCE, INTRAOP (WRVU 1.2) performed by Lisa Singh MD at [facility] MAIN OR ??? PRO THYROIDECTOMY=SUBSTERNAL, TRANSCERV Bilateral 03/03/2021 THYROIDECTOMY, INCL. SUBSTERNAL, CERVICAL APPROACH (WRVU 17.62) performed by Lisa Singh MD at [facility] MAIN OR Social History: Home Setup: pt [...] home: commode, power w/c, hospital bed, miniature senior web engineer Fall history: reports many falls in the [...] coordination o Dressing: pt declined; has miniature senior web engineer o Bathing: pt declined o Toileting: pt [...] of functional outcome. Carolina Casey OTR/L Pager [phone] Occupational Therapy Rehabilitation Department Jose Khalil, [facility] - 04/06/2021 1:24 AM EDT TelePharmacy Home Medication List Update for Medication Reconciliation 04/06/21 1:24 AM Radha Masterson 1955 Allergies Allergen Reactions ??? Red Blood Cells Other (See Comments) Antibodies-Difficult to Crossmatch DO NOT REMOVE Please contact the Blood Bank at [phone] for questions. ??? Iodine And Iodide Containing [...] contact the TelePharmacy Medication Reconciliation Pharmacist at [phone] for any questions. Jose Khalil RPH documented [...] right ID: 65 y.o. Female presents to [facility] with ulcer pain and discharge History of Present Illness: HPI 65 year old woman with hx of pulmonary HTN, HFpEF, DAVID, bilateral LE edema, prosthetic right knee, and obesity (BMI 80) who presents to [facility] ER 04/05 with RLE ulcer pain and [...] 1.57) performed by Lisa Singh MD at [facility] MAIN OR ??? PRG US GUIDE INTRAOP N/A 03/03/2021 ULTRASONIC GUIDANCE, INTRAOP (WRVU 1.2) performed by Lisa Singh MD at [facility] MAIN OR ??? PRO THYROIDECTOMY=SUBSTERNAL, TRANSCERV Bilateral 03/03/2021 THYROIDECTOMY, INCL. SUBSTERNAL, CERVICAL APPROACH (WRVU 17.62) performed by Lisa Singh MD at [facility] MAIN OR Prior To Admission Medications: (Not in a hospital admission) Allergies: Allergies Allergen Reactions ??? Red Blood Cells Other (See Comments) Antibodies-Difficult to Crossmatch DO NOT REMOVE Please contact the Blood Bank at [phone] for questions. ??? Iodine And Iodide Containing [...] on file Social History Narrative Lives in [facility]. Daughter lives with her for now. [...] surface of the RLE there is a [id number] chronic venous stasis wound with foul-smelling white-yellow [...] and obesity (BMI 80) who presents to [facility] ER 04/05 with RLE ulcer pain and [...] surface of the RLE there is a [id number] chronic venous stasis wound with foul-smelling white-yellow [...] AM EDT Clinical Pharmacist Note-Vanc Radha Masterson [id number] Radha Masterson is a 65 y.o. [...] have. Alternately, during off-hours you may call [phone] to contact a pharmacist. OMAR NO RPH [...] son would be surrogate decision maker per [place] surrogate decision making law. (Only good for 90 days) Any patient receiving care at [facility] must abide by [place] law. The hierarchy for surrogate decision making [...] (i) The agent with financial power of trust and estates attorney or a conservator appointed in accordance [...] - rolling Home Address confirmed as: [address] [address] Social & Family Supports: All names listed below confirmed with patient as current and correct Extended Emergency Contact Information Primary Emergency Contact: Tonie Masterson Address: [address] Mobile Relation: Parent Secondary Emergency Contact: Galo Higgins Address: [address] Relation: Friend Current Care Provided by: [...] services at home. Health/Prescription Coverage: Primary Insurance: [facility] MANAGED MEDICARE Payor: [facility] [employer] MEDICARE / Plan: [facility] MANAGED MEDICARE / Product Type: *No Product type* / Secondary Insurance: MEDICAID [place] Prescription Coverage: YES Preferred Pharmacy: [id number] [place], [place] - [address] [place] [address] [address] [facility] [address] [place] [phone] [place] Status: Patient is a : No Primary Care Provider: Alphonso Cerna MD [phone] Patient/Caregiver Goals of Treatment: I'm going home with VNA Potential Needs for Transition of Care: home health care, rehabilitation services Agency Referrals: [facility] (current patient) Transportation: unable to assess [...] of care planning. Consult Note - Yas Bzazi RN - 04/06/2021 12:36 PM EDT Images [...] Intake Nutrition Intake (%): 0% Current bed: [facility] Assessment: The patient is with lymphedema [...] Please contact YAS BAZZI RN on pager [phone] or the wound care team at [phone] or pager [phone] skin and wound care concerns or questions. [...] encounter: 203 kg (447 lb 8.5 oz). Excello Body Weight: 115# // 52kg Usual Body [...] while inpatient THANKS Gill Ocampo RD Pager #:[phone] Plan of Care - Sukhwinder Eckert RN - 04/06/2021 6:51 AM EDT OUTCOME EVALUATION NOTE: OUTCOME SUMMARY: 65 year old woman with hx of pulmonary HTN, HFpEF, DAVID, bilateral LE edema, prosthetic right knee, and obesity (BMI 80) who presents to [facility] ER 04/05 with RLE ulcer pain and [...] google or use a book such as [employer] (available on [employer]) OR [employer] (if you're using a package, it will [...] EDT) athologist Signature Neutrophils % 61.7 % [facility] Neutr Abs (ANC) 5.46 1.70 - [facility] 6.10 [facility] x10(3)/[facility] LABORATORY Lymphocytes % 24.9 % [facility] Lymphocytes Abs 2.2 0.9 - 3.2 [facility] x10(3)/[facility] LABORATORY Monocytes % 8.3 % [facility] Monocyte Abs 0.7 0.3 - 0.9 [facility] x10(3)/[facility] LABORATORY Eosinophils % 4.4 % [facility] Eosinophils Abs 0.4 0.0 - 0.4 [facility] x10(3)/[facility] LABORATORY Basophils % 0.5 % [facility] Basophils Abs 0.0 0.0 - 0.1 [facility] x10(3)/[facility] LABORATORY Immature Gran % 0.20 % [facility] Comment: Immature granulocytes(IG's)percentage an d absolute count will include metamyelocytes, myelocytes, and promyelo cytes. Blood smears from CBCs yielding IG's will be scanned manually for concor dance. If this scan disagrees with the automated IG or if promyelocytes are not ed, a manual differential will be performed. Surekha Gran Abs 0.02 0.00 - 0.04 x10(3)/[facility] MAR Y [facility] LABORATORY Specimen Anatomical Collection Method Collection Time Receive d Time (Source) Location / / Volume Laterality Blood 04/08/2021 1:38 AM 1:56 EDT AM EDT Resulting Agency Comment Spec In Lab Elliott Goodson MD HEMATOLOGY ORDERABLES Performing Organization Address City/State/[place] [address] Hemogram (04/08/2021 1:38 AM EDT) P athologist Signature WBC 8.8 4.0 - 9.5 [facility] x10(3)/[facility] LABORATORY RBC 4.44 4.00 - [facility] 5.21 [facility] x10(6)/[facility] LABORATORY Hemoglobin 12.7 11.7 - [facility] 15.5 gm/dL [facility] Hematocrit 39.2 35.7 - [facility] MCV 88.3 82.6 - [facility] 94.4 [facility] LABORATORY MCH 28.6 27.1 - [facility] 32[facility] [facility] MCHC 32.4 31.7 - [facility] 35.0 gm/dL [facility] Platelets 259 145 - 357 [facility] x10(3)/[facility] LABORATORY RDWSD 45.6 37.0 - [facility] 46.0 [facility] LABORATORY RDWCV 14.1 11.5 - [facility].1 % [facility] MPV 11.2 7.6 - 12.9 [facility] LABORATORY nRBC % Auto 0.0 % [facility] nRBC Abs Auto 0.000 0.000 - [facility] 0.000 [facility] x10(3)/[facility] LABORATORY Specimen Anatomical Collection Method Collection Time Receive d Time (Source) Location / / Volume Laterality Blood 04/08/2021 1:38 AM 1:56 EDT AM EDT Resulting Agency Comment Spec In Lab Elliott Goodson MD HEMATOLOGY ORDERABLES Performing Organization Address City/State/[place] [address] (ABNORMAL) Basic Metabolic Panel (non-fasting) (04/08/2021 1:38 AM EDT) P athologist Signature Glucose Lvl 113 65 - 199 [facility] mg/dL [facility] Comment: Diabetes: >=200 mg/dL plus symp toms BUN 16 8 - 18 mg/dL [facility] Creatinine 0.80 0.70 - 1.20 mg/dL [facility] Sodium 138 135 - 145 mmol/L [facility] [...] estions. Chloride 103 98 - 107 mmol/L [facility] CO2 26 22 - 31 mmol/L [facility] Anion Gap 9 5 - 15 mmol/L [facility] LABOR[facility]ORY Calcium 7.9 (L) 8.5 - 10.5 mg/dL [facility] Estimated GFR 78 >=60 mL/min/1.73 m?? [facility] Comment: This patient? s estimated [...] Organization Address City/State/[place] [address] Differential, Automated (04/07/2021 3:23 AM EDT) athologist Signature Neutrophils % 63.2 % [facility] Neutr Abs (ANC) 5.18 1.70 - [facility] 6.10 [facility] x10(3)/[facility] LABORATORY Lymphocytes % 22.7 % [facility] Lymphocytes Abs 1.9 0.9 - 3.2 [facility] x10(3)/[facility] LABORATORY Monocytes % 9.1 % [facility] Monocyte Abs 0.8 0.3 - 0.9 [facility] x10(3)/[facility] LABORATORY Eosinophils % 4.4 % [facility] Eosinophils Abs 0.4 0.0 - 0.4 [facility] x10(3)/[facility] LABORATORY Basophils % 0.4 % [facility] Basophils Abs 0.0 0.0 - 0.1 [facility] x10(3)/[facility] LABORATORY Immature Gran % 0.20 % [facility] Comment: Immature granulocytes(IG's)percentage an d absolute count will include metamyelocytes, myelocytes, and promyelo cytes. Blood smears from CBCs yielding IG's will be scanned manually for concor dance. If this scan disagrees with the automated IG or if promyelocytes are not ed, a manual differential will be performed. Surekha Gran Abs 0.02 0.00 - 0.04 x10(3)/[facility] Y [facility] LABORATORY Specimen Anatomical Collection Method Collection Time Receive d Time (Source) Location / / Volume Laterality Blood 04/07/2021 3:23 AM 1 3:36 EDT AM EDT Resulting Agency Comment Spec In Lab Elliott Goodson MD HEMATOLOGY ORDERABLES Performing Organization Address City/State/[place] [address] Hemogram (04/07/2021 3:23 AM EDT) P athologist Signature WBC 8.2 4.0 - 9.5 [facility] x10(3)/[facility] LABORATORY RBC 4.27 4.00 - [facility] 5.21 [facility] x10(6)/[facility] LABORATORY Hemoglobin 12.3 11.7 - [facility] 15.5 gm/dL [facility] Hematocrit 37.6 35.7 - [facility] 45.8 % [facility] MCV 88.1 82.6 - [facility] 94.4 [facility] LABORATORY MCH 28.8 27.1 - [place] [facility] 32.[address] [facility] MCHC 32.7 31.7 - [place] 35.0 gm/dL [facility] Platelets 228 145 - 357 [facility](3[facility] LABORATORY RDWSD 45.3 37.0 - [facility] 46.0 [facility] LABORATORY RDWCV 14.1 11.5 - [place] [facility] 14.1 % [facility] MPV 10.6 7.6 - 12.9 [place] [facility] LABORATORY nRBC % Auto 0.0 % [facility] nRBC Abs Auto 0.000 0.000 - [place] [facility] 0.000 [facility] x10(3)/[facility] LABORATORY Specimen Anatomical Collection Method Collection Time Receive d Time (Source) Location / / Volume Laterality Blood 04/07/2021 3:23 AM 1 3:36 EDT AM EDT Resulting Agency Comment Spec In Lab Elliott Goodson MD HEMATOLOGY ORDERABLES Performing Organization Address City/State/[place] [address] (ABNORMAL) Basic Metabolic Panel (non-fasting) (04/07/2021 3:23 AM EDT) P athologist Signature Glucose Lvl 97 65 - 199 [facility] mg/dL [facility] Comment: Diabetes: >=200 mg/dL plus symp toms BUN 16 8 - 18 mg/dL [facility] LABOR[facility] Creatinine 0.75 0.70 - 1.20 mg/dL [facility] Sodium 140 135 - 145 mmol/L [facility] Potassium 3.9 3.5 - 5.0 mmol/L [facility] Comment: Please note: ??Patients with WBC >100,00 0 may have falsely elevated Potassium levels. ??For accurate Potassium quantif ication in these patients send serum separator tube (gold top) for subsequent determinations. ??Contact the Clinical Chemistry Laboratory if there are any qu estions. Chloride 105 98 - 107 mmol/L [facility] CO2 28 22 - 31 mmol/L [facility] Anion Gap 7 5 - 15 mmol/L [facility] LABORATORY Calcium 8.2 (L) 8.5 - 10.5 mg/dL [facility] Estimated GFR 84 >=60 mL/min/1.73 m?? [facility] Comment: This patient? s estimated [...] Organization Address City/State/[place] [address] (ABNORMAL) Vitamin D, 25-Hydroxy (04/06/2021 3:19 PM EDT) [facility] Method Time Signature 25-OH Vit D 13 (L) 21 - 100 [facility] Total ng/mL [facility] 25-OH Vit D Deficient [facility] [employer] [facility] Specimen Anatomical Collection Method Collection Time Receive d Time (Source) Location / / Volume Laterality Blood 04/06/2021 3:19 PM 3:25 EDT PM EDT Resulting Agency Comment Spec In Lab Hina Conley APRN CHEMISTRY ORDERABLES Performing Organization Address City/[facility]/[place] [address] MRSA PCR (04/06/2021 11:31 AM EDT) [facility] Method Time Signature MRSA Result Negative Negative [facility] MRSA Interp Negative for methicillin-resistant Staphylococcus aureus (MRSA) [facility] This test was performed using the GeneNextwave Software?? Dx System an d the Xpert MRSA MEMORIAL Assay. The MRSA target DNA was not detec claudia. The sample processing control and HOSPITAL probe check were valid. The performance of this test was determined by the [facility]OR[facility] Molecular Pathology Laboratory. It has been [...] - GENERAL ORDER MARY Performing Organization Address City/[facility]/[place] [address] Hemoglobin A1c (04/05/2021 11:20 PM EDT) athologist Signature Hemoglobin A1C 5.3 4.3 - 5.6 [facility] Comment: Reference Range: 4.3 - 5.6% [...] 1, S67-74 Est Avg Gluc 106 mg/dL [facility] LABOR[facility]ORY Comment: eAG equivalents for HbA1c percentages: HbA1c(%) ?eAG(mg/dL) 6.0 ?126 6.5 ?140 7.0 ?154 7.5 ?169 8.0 ?183 8.5 ?197 9.0 ?212 9.5 ?226 10.0 ? 240 Limitations: The eAG calculation has not been validated on women, individuals below 18 years old and above 70 years old, and individuals with hemoglobinopathies. Additional resources are available on [facility] ADA website. Morales BERNSTEIN, Rey J, Jose L R, et al. ??Tr anslating the A1C assay into estimated average glucose values. ??Diabetes Care 2008:31(8):4813-2951. Specimen Anatomical Collection Method Collection Time Receive d Time (Source) Location / / Volume Laterality Blood Venous Draw / 04/05/2021 11:20 04/06/2021 4:59 Unknown PM EDT AM EDT Resulting Agency Comment Spec In Lab Elliott Goodson MD CHEMISTRY ORDERABLES Performing Organization Address City/State/[place] [address] Hepatic Function Panel (04/05/2021 11:20 PM EDT) athologist [facility] [place] Total Protein 6.5 6.1 - 8.0 [facility] gm/dL [facility] Albumin 3.5 3.2 - 5.2 [facility] gm/dL [facility] AST 21 0 - 30 [facility] unit/L [facility] ALT 19 0 - 30 [facility] unit/L [facility] Alk Phos 75 35 - 105 [facility] unit/L [facility] Total 0.7 0.2 - 1.3 [facility] Bilirubin mg/dL [facility] Bili, Direct 0.1 0.0 - 0.3 [facility] mg/dL [facility] Specimen Anatomical Collection Method Collection Time Receive d Time (Source) Location / / Volume Laterality Blood Venous Draw / 04/05/2021 11:20 04/05/2021 Unknown PM EDT 11:27 PM EDT Resulting Agency Comment Spec In Lab Elliott Goodson MD CHEMISTRY ORDERABLES Performing Organization Address City/[facility]/[place] [address] (ABNORMAL) CRP, acute inflammation (04/05/2021 11:20 PM EDT) athologist [facility] [place] CRP 5.8 (H) <=4.9 mg/L [facility] Specimen Anatomical Collection Method Collection Time Receive d Time (Source) Location / / Volume Laterality Blood Venous Draw / 04/05/2021 11:20 04/05/2021 Unknown PM EDT 11:27 PM EDT Resulting Agency Comment Spec In Lab Elliott Goodson MD CHEMISTRY ORDERABLES Performing Organization Address City/[facility]/[place] [address] (ABNORMAL) Sedimentation rate (04/05/2021 11:20 PM EDT) athologist [facility] [place] Sed Rate 58 (H) 2 - 39 [facility] mm/hr [facility] Comment: Effective July 25, 2019 [...] Goodson MD HEMATOLOGY ORDERABLES Performing Organization Address City/[facility]/ZIP Code Phon e Number [address] Gold Tube HOLD (04/05/2021 11:20 PM EDT) athologist Signature Gold Hold Sample in [facility]. [facility] Specimen Anatomical Collection Method Collection Time Receive d Time (Source) Location / / Volume Laterality Blood Venous Draw / 04/05/2021 11:20 04/05/2021 Unknown PM EDT 11:24 PM EDT Karine Sears MD CHEMISTRY ORDERABLES Performing Organization Address City/[facility]/ZIP Code Phon e Number [address] Differential, Automated (04/05/2021 11:20 PM EDT) athologist Signature Neutrophils % 58.6 % [facility] Neutr Abs (ANC) 5.56 1.70 - [facility] 6.10 [facility] x10(3)/[facility] LABORATORY Lymphocytes % 26.6 % [facility] Lymphocytes Abs 2.5 0.9 - 3.2 [facility] x10(3)/[facility] LABORATORY Monocytes % 9.3 % [facility] Monocyte Abs 0.9 0.3 - 0.9 [facility] x10(3)/[facility] LABORATORY Eosinophils % 4.6 % [facility] Eosinophils Abs 0.4 0.0 - 0.4 [facility] x10(3)/[facility] LABORATORY Basophils % 0.5 % [facility] Basophils Abs 0.0 0.0 - 0.1 [facility] x10(3)/[facility] LABORATORY Immature Gran % 0.40 % [facility] Comment: Immature granulocytes(IG's)percentage an d absolute count will include metamyelocytes, myelocytes, and promyelo cytes. Blood smears from CBCs yielding IG's will be scanned manually for concor dance. If this scan disagrees with the automated IG or if promyelocytes are not ed, a manual differential will be performed. Surekha Gran Abs 0.04 0.00 - 0.04 x10(3)/[facility] LABORATORY Specimen Anatomical Collection Method Collection Time Receive d Time (Source) Location / / Volume Laterality Blood 04/05/2021 11:20 04/05/2021 PM EDT 11:24 PM EDT Resulting Agency Comment Spec In Lab Karine Sears MD HEMATOLOGY ORDERABLES Performing Organization Address City/State/[place] [address] Hemogram (04/05/2021 11:20 PM EDT) P athologist Signature WBC 9.5 4.0 - 9.5 [facility] x10(3)/[facility] LABORATORY RBC 4.79 4.00 - [facility] 5.21 [facility] x10(6)/[facility] LABORATORY Hemoglobin 13.6 11.7 - [facility] 15.5 gm/dL [facility] Hematocrit 41.1 35.7 - [facility] 45.8 % [facility] MCV 85.8 82.6 - [facility] 94.4 [facility] LABORATORY MCH 28.4 27.1 - [facility] 32.[address] [facility] MCHC 33.1 31.7 - [facility] 35.0 gm/dL [facility] Platelets 263 145 - 357 [facility] x10(3)/[facility] LABORATORY RDWSD 43.5 37.0 - [facility] 46.0 [facility] LABORATORY RDWCV 13.9 11.5 - [facility] 14.1 % [facility] MPV 10.5 7.6 - 12.9 [facility] LABORATORY nRBC % Auto 0.0 % [facility] nRBC Abs Auto 0.000 0.000 - [facility] 0.000 [facility] x10(3)/[facility] LABORATORY Specimen Anatomical Collection Method Collection Time Receive d Time (Source) Location / / Volume Laterality Blood 04/05/2021 11:20 04/05/2021 PM EDT 11:24 PM EDT Resulting Agency Comment Spec In Lab Karine Sears MD HEMATOLOGY ORDERABLES Performing Organization Address City/State/[place] [address] (ABNORMAL) Basic Metabolic Panel (non-fasting) (04/05/2021 11:20 PM EDT) P athologist Signature Glucose Lvl 98 65 - 199 [facility] mg/dL [facility] Comment: Diabetes: >=200 mg/dL plus symp toms BUN 13 8 - 18 mg/dL [facility] LABORATORY Creatinine 0.62 (L) 0.70 - 1.20 mg/dL [facility] LABORATORY Sodium 142 135 - 145 mmol/L [facility] Potassium 4.0 3.5 - 5.0 mmol/L [facility] Comment: Please note: ??Patients with WBC >100,00 0 may have falsely elevated Potassium levels. ??For accurate Potassium quantif ication in these patients send serum separator tube (gold top) for subsequent determinations. ??Contact the Clinical Chemistry Laboratory if there are any qu estions. Chloride 107 98 - 107 mmol/L [facility] CO2 26 22 - 31 mmol/L [facility] Anion Gap 9 5 - 15 mmol/L [facility] LABORATORY Calcium 8.2 (L) 8.5 - 10.5 mg/dL [facility] Estimated GFR 95 >=60 mL/min/1.73 m?? [facility] Comment: This patient? s estimated [...] Organization Address City/State/[place] [address] L-Lactate2 Whole Blood (04/05/2021 11:19 PM EDT) P athologist Signature Lactate WB 1.5 0.5 - 2.2 [facility] mmol/L [facility] Specimen Anatomical Collection Method Collection Time Receive d Time (Source) Location / / Volume Laterality Blood 04/05/2021 11:19 04/05/2021 PM EDT 11:19 PM EDT Blanquita Blevins MD CHEMISTRY ORDERABLES Performing Organization Address City/State/ZIP [facility] [place] [address] documented in this encounter [...] chloride 0.9% 100 mL Mini-Bag Plus (CANCELED) 0998 (New Bag - Provider: Bandar rachel RN)1602 [...] patch
documented in this encounter Care Teams Post Hole Digging Machine Operator Relationship Specialty Start Date End Date Alphonso Cerna MD PCP - General Family Medicine 02/19/[address] [place] [address] documented as of this encounter
--- OUTSIDE RECORDS SUMMARY | 2022-05-03 09:08 | XMS_ITS | Encounter Summary ---
:1955 [place] [address] Care Team Providers Name Role Phone Alphonso Murphy MD Primary Care Provider [phone] Encounter Details Date Type Department Care Team Description 03/31/2021 Notes Only Wound Care at [facility] Laurie Templeton, [place] [address] Social History Tobacco Use Types Packs/Day [...] EDT Referral for VNA services faxed to [facility]. documented in this encounter Plan [...] or use a book such as Calorie NextCare (available on Astrum Solar) OR Everfi (if you're using a package, it will have calorie and protein info on the back) - The other thing to write down would be grams of protein - 1500 is a good starting point for a ca jeffrey goal documented as of this encounter Visit Diagnoses Not on filedocumented in this encounter Care Teams Supervisor Paint Relationship Specialty Start Date End Date Alphonso Murphy MD PCP - General Family Medicine 02/19/[address] [place] [address] documented as of this encounter
--- OUTSIDE RECORDS SUMMARY | 2022-05-03 09:08 | XMS_ITS | Encounter Summary ---
:1955 [place] [address] Care Team Providers Name Role Phone Alphonso Murphy MD Primary Care Provider [phone] Encounter Details Date Type Department Care Team Description 05/05/2021 [place]phone [place] [address] Social History Tobacco Use Types Packs/Day [...] Note Patient Name: Radha Masterson : 1955 [id number] Caller: Radha Masterson Chief Complaint/reason for call Elevated temp, SOB, increase pain from leg wound and increase size Type of Wound Venous ulcer: Currently using tubigrips Location and laterality right lower leg Drainage serous Home Health Agency: [facility] Subjective: VNA nurse Linh left message on triage voicemail requesting we call patient. Phone call to patient..... Elevated temp and pain on right lower leg. Area of cellulitis has increased in size to 20qec09oby0.1cm. Last dose of Cefazolin was 04/30/21. Associated [...] - will go to closest ER in [facility] Report called to ER N Scheduled f/u appt in wound clinic N Recommended f/u appt with PCP N Other: Home care instructions/orders N Patients' Disposition- Patient lives alone and her friend that normally drives her to appointments is out of town. Patient refused to call 911 for transport to the hospital she insisted on taking the shuttle bus to [facility] ER. Plan of Care/Recommendations- Seek Medical [...] evenings, please report to the Emergency Department. [phone] Comments: *Follow up phone call to Linh at [facility] at [phone]. Reviewed with Linh recommendation to call 911 [...] google or use a book such as Matter.io (available on Vistar Media) OR [employer] (if you're using a package, it will have calorie and protein info on the back) - The other thing to write down would be grams of protein - 1500 is a good starting point for a ca jeffrey goal documented as of this encounter Visit Diagnoses Not on filedocumented in this encounter Care Teams Inspector Packer Relationship Specialty Start Date End Date Alphonso Murphy MD PCP - General Family Medicine 02/19/[address] [place] [address] documented as of this encounter
--- OUTSIDE RECORDS SUMMARY | 2022-05-03 09:08 | XMS_ITS | Encounter Summary ---
:1955 Author Organization [facility] [place] [address] Care Team Providers Name Role Phone Alphonso Murphy MD Primary Care Provider [phone] Reason for Referral Physical Therapy (Routine) - Closed Specialty Diagnoses / Procedures Referred By Contact Refer red To Contact Physical Therapy Diagnoses S/P total thyroidectomy Lymphedema S/P total thyroidectomy Lisa Singh MD [facility] Pt Rehab Procedures Evaluate and Treat [facility] GENERAL SURGERY [place], [place] [id number] [place] [phone] Phone: Fax: Referral ID Status Reason Start Date Expiration Date Visits V isits Requested Authorized [id number] Closed Evaluate and 03/19/2021 03/19/2022 12 12 Treat Encounter Details Date Type Department Care Team Description 03/19/2021 TH Visit General Surgery at Lisa Singh, S/P to [facility] (TeleHealth) [facility] thyroidectomy [facility] [address] [place] GENERAL SURGERY [address] [place] [address] [phone] Social History Tobacco Use Types Packs/Day Years Used Date Former Smoker Cigarettes 3 40 Quit: 10/08/19 11 Smokeless Tobacco: Never Used Alcohol Use Standard Drinks/Week Comments No 0 (1 standard drink = 0.6 oz pure alcoho l) Sex Assigned at Date Recorded Not on file documented as of this encounter Patient Instructions Patient InstructionsBakyler, Lisa Irizarry MD - 03/19/2021 5:15 PM EDT [facility] POST-OPERATIVE FOLLOW UP The clinic contact number is [phone]. After your THYROID operation ?? It is [...] connected with us on our facebook page [facility] Here???s a link to our website to learn more about endocrine diseases, endocrine surgery, and research being done at [facility]. Visit [email or web address] Another great website is [email or web address] documented in [...] well. 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 Safe&Software (available on M-Audio) OR ForwardMetrics.WIB (if you're using a package, it will have calorie and protein info on the back) - The other thing to write down would be grams of protein - 1500 is a good starting point for a ca jeffrey goal documented as of this encounter Results PTH (03/23/2021 10:13 AM EDT) P athologist Signature PTH 31 15 - 65 [place] pg/mL [facility] LABORATORY Specimen Anatomical Collection Method Collection Time Receive d Time (Source) Location / / Volume Laterality Blood 03/23/2021 10:13 03/23/2021 AM EDT 10:21 AM EDT Resulting Agency Comment Spec In Lab Lisa Singh MD CHEMISTRY ORDERABLES Performing Organization Address City/State/Z[place] [address] Calcium (03/23/2021 10:13 AM EDT) P athologist Signature Calcium 9.0 8.5 - 10.5 [facility] mg/dL [facility] Specimen Anatomical Collection Method Collection Time Receive d Time (Source) Location / / Volume Laterality Blood 03/23/2021 10:13 03/23/2021 AM EDT 10:21 AM EDT Resulting Agency Comment Spec In Lab Lisa Singh MD CHEMISTRY ORDERABLES Performing Organization Address City/State/[place] [address] documented in this encounter Visit Diagnoses Diagnosis S/P total thyroidectomy Other postprocedural status documented in this encounter Care Teams Grinder And Honer Operator Automatic Relationship Specialty Start Date End Date Alphonso Murphy MD PCP - General Family Medicine 02/19/[address] [place] [address] documented as of this encounter
--- OUTSIDE RECORDS SUMMARY | 2022-05-03 09:08 | XMS_ITS | Clinical Summary ---
:1955 Author Organization [facility] Address [place] [id number] Care Team Providers Name Role Phone Alphonso Murphy MD Primary Care Provider [phone] Allergies Active Allergy Reactions Severity Noted Date Comments Iodine And Iodide rash Containing Products Morphine Rash Low 06/11/2014 Other reaction( s): PRURITIS Oxycodone Rash 06/11/2014 Red Blood Cells Other (See Comments) High 03/02/2021 Anti bodies-Difficult to Crossmatch DO NOT REMOVE Please contact the Blood Bank at [phone] for questions. Medications Medication Sig Dispensed Refills [...] route daily 50 mcg/actuation as needed. 04/06 [place], Suspension Patient states that she only takes [...] kidney injury) 01/16/2017 05/18/2019 Morbid obesity 12/03/2010 Immunizations Name Administration Dates Next Due Influenza [...] Last Done Comments Covid-19 Vaccine (#1) 1961 Hepatitis C Screening 1974 Lipid Screening 1974 [...] or use a book such as Calorie Kaos Solutions (available on Startapp) OR [employer] Digital Services (if you're using a package, it will have calorie and protein info on the back) - The other thing to write down would be grams of protein - 1500 is a good starting point for a ca jeffrey goal Insurance Payer Benefit Plan / Subscriber ID Effective Dates Phone Addre ss Type Group [facility] MANAGED [facility] [id number] 2019-Presen [id number] [address] [address] MEDICARE MEDICARE t [address] [place] [address] [place] [id number] 2021-Prese [phone] [address] [place] [address] Advance Directives Latest Code Status on File [...] capacity to make decision: Yes Care Teams Clinical Product Specialist Relationship Specialty Start Date End Date Alphonso Murphy MD PCP - General Family Medicine 02/19/[address] [place] [address]
--- OUTSIDE RECORDS SUMMARY | 2022-05-03 09:08 | XMS_ITS | Encounter Summary ---
:1955 Author Organization [facility] [place] [address] Care Team Providers Name Role Phone Alphonso Murphy MD Primary Care Provider [phone] Encounter Details Date Type Department Care Team Description 01/27/2022 Orders Only General Surgery at [facility] [place] [place] [address] Social History Tobacco Use Types Packs/Day [...] google or use a book such as First Insight (available on Cyvenio Biosystems) OR Empyrean Benefit Solutions (if you're using a package, it will have calorie and protein info on the back) - The other thing to write down would be grams of protein - 1500 is a good starting point for a ca jeffrey goal documented as of this encounter Visit Diagnoses Not on filedocumented in this encounter Care Teams Certified Executive Chef Relationship Specialty Start Date End Date Alphonso Murphy MD PCP - General Family Medicine 02/19/[address] [place] [address] documented as of this encounter
--- OUTSIDE RECORDS SUMMARY | 2022-05-03 09:08 | XMS_ITS | Encounter Summary ---
:1955 [place] [address] Care Team Providers Name Role Phone Alphonso Murphy MD Primary Care Provider [phone] Encounter Details Date Type Department Care Team Description 06/23/2021 Telephone Wound Care at [facility] [place] [address] Social History Tobacco Use Types Packs/Day [...] google or use a book such as Triples Media (available on Liquid) OR Milyoni (if you're using a package, it will have calorie and protein info on the back) - The other thing to write down would be grams of protein - 1500 is a good starting point for a ca jeffrey goal documented as of this encounter Visit Diagnoses Not on filedocumented in this encounter Care Teams Radiologist Physician Relationship Specialty Start Date End Date Alphonso Murphy MD PCP - General Family Medicine 02/19/[address] [place] [address] documented as of this encounter
--- OUTSIDE RECORDS SUMMARY | 2022-05-03 09:08 | XMS_ITS | Encounter Summary ---
:1955 Author Organization [facility] [place] [address] Care Team Providers Name Role Phone Alphonso Murphy MD Primary Care Provider [phone] Encounter Details Date Type Department Care Team Description 04/30/2021 [facility] ulcer of right calf limited to breakdown of skin, unspecified whether varicose veins present; [facility] Venous in sufficiency of both lower extremities; Hospital Lymphedema of [place] [id number] Social History Tobacco Use Types Packs/Day Years [...] book such as Calorie Adalberto (available on Boyaa Interactive) OR Claritas Genomics (if you're using a package, it will [...] Component Value Ref Test Analysis Performed At [facility] [place] Range Method Time Signature VB Text Department: Vascular Surgery Lab VASCUBASE Report Patient: 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 [...] extremities documented in this encounter Care Teams Call Specialist Relationship Specialty Start Date End Date Alphonso Murphy MD PCP - General Family Medicine 02/19/[address] [place] [address] documented as of this encounter
--- OUTSIDE RECORDS SUMMARY | 2022-05-03 09:08 | XMS_ITS | Encounter Summary ---
:1955 Author Organization [facility] [place] [address] Care Team Providers Name Role Phone Alphonso Murphy MD Primary Care Provider [phone] Encounter Details Date Type Department Care Team Description 10/01/2021 [facility] [place] [address] Social History Tobacco Use Types Packs/Day [...] 10/01/2021 3:50 PM EST Phone call to [facility]. Patient was discharged from services in June. [...] google or use a book such as Smart Furniture (available on Parchment) OR One Hour Translation (if you're using a package, it will have calorie and protein info on the back) - The other thing to write down would be grams of protein - 1500 is a good starting point for a ca jeffrey goal documented as of this encounter Visit Diagnoses Not on filedocumented in this encounter Care Teams Drug Room Operator Relationship Specialty Start Date End Date Alphonso Murphy MD PCP - General Family Medicine 02/19/[address] [place] [address] [address] [place] [address] documented as of this encounter
--- OUTSIDE RECORDS SUMMARY | 2022-05-03 09:08 | XMS_ITS | Encounter Summary ---
:1955 Author Organization [facility] [place] [address] Care Team Providers Name Role Phone Alphonso Murphy MD Primary Care Provider [phone] Encounter Details Date Type Department Care Team Description 07/29/2021 Telephone Pulmonology at [facility] [place] [address] Social History Tobacco Use Types Packs/Day [...] timer for 30 minutes after you fin radnee your meal to remind yourself nnot to [...] google or use a book such as Medical Simulation (available on VSoft) OR HN [employer] (if you're using a package, it will have calorie and protein info on the back) - The other thing to write down would be grams of protein - 1500 is a good starting point for a ca jeffrey goal documented as of this encounter Visit Diagnoses Not on filedocumented in this encounter Care Teams Copy Operator Relationship Specialty Start Date End Date Alphonso Murphy MD PCP - General Family Medicine 02/19/[address] [place] [address] documented as of this encounter
--- OUTSIDE RECORDS SUMMARY | 2022-05-03 09:08 | XMS_ITS | Encounter Summary ---
:1955 Author Organization [place] [address] Care Team Providers Name Role Phone Alphonso Murphy MD Primary Care Provider [phone] Encounter Details Date Type Department Care Team Description 04/30/2021 Office Visit Wound Care at [facility] Venou s stasis ulcer of right calf limited to breakdown of skin, unspecified whether varicose veins present; [facility] RN Venous in sufficiency of both [place] [id number] Social History Tobacco Use Types Packs/Day Years [...] Currently using [facility]ps Home Health Agency: Yes [facility] Subjective: Patient denies fever, chills, [...] She will follow up here at the [facility] in one week or sooner if [...] with any above symptoms Tuesday- Tuesday 8:00AM-4:30PM ([phone]). If weekends / holidays / evenings, please report to the Emergency Department. High Protein foods: try to eat 5-6 servings of these per day Beef, chicken, fish Beans, Lentils, peanut butter Wolof and regular yogurt Cheese, eggs Boost, Ensure [...] or use a book such as Calorie Wibbitz (available on Easel Learn) OR En[employer] (if you're using a package, it [...] mities documented in this encounter Care Teams Rotary Machine Operator Relationship Specialty Start Date End Date Alphonso Murphy MD PCP - General Family Medicine 02/19/[address] [place] [address] documented as of this encounter
--- OUTSIDE RECORDS SUMMARY | 2022-05-03 09:08 | XMS_ITS | Encounter Summary ---
:1955 [place] [address] Care Team Providers Name Role Phone Alphonso Murphy MD Primary Care Provider [phone] Encounter Details Date Type Department Care Team Description 06/03/2021 Office Visit Dermatology at [facility] Huber Aavlos MD Localized edema; [facility] Dermatitis [address] [place] [address] [facility] [phone] [address]-DERMATOLOGY [place], [place] [address] (Wo rk) Social History Tobacco [...] around the wound site. Last visit at [facility] Derm: 05/14/2021 Last visit with this provider: [...] for wound care follow-up []Note routed to departmental secretary []Recall placed in scheduling system [x]Appointment scheduled at checkout Scribe attestation: Roxanne Decker has performed the documentation for this encounter in the presence of and acting as a scribe for Nam Avalos MD. I performed the above scribed service and agree with the accuracy of the documentation in this encounter. Reviewed and signed by: Nam Avalos MD Dermatology [facility] Patient seen and evaluated with staff supervisor cutting and sewing room: Charlene Lozada MD Dermatology [facility] Charlene Lozada MD - 06/03/2021 3:00 PM [...] google or use a book such as Roboinvest (available on ByteActive) OR Bomgar.Ecorithm (if you're using a package, it will [...] cause documented in this encounter Care Teams Concrete Rubber Relationship Specialty Start Date End Date Alphonso Murphy MD PCP - General Family Medicine 02/19/[address] [place] [address] documented as of this encounter
--- OUTSIDE RECORDS SUMMARY | 2022-05-03 09:08 | XMS_ITS | Encounter Summary ---
:1955 Author Organization [facility] [place] [address] Care Team Providers Name Role Phone Alphonso Murphy MD Primary Care Provider [phone] Reason for Visit Consultation (Urgent) - Closed Specialty Diagnoses / Procedures Referred By Contact Refer red To Contact Dermatology Diagnoses Venous stasis ulcer of right calf limited to breakdown of skin, unspecified whether varicose veins present Amy Germain APRN [facility] Dermatology [facility] [address] [facility] [place] [address] [place] [address] Referral ID Status Reason Start Date Expiration Date Visits V isits Requested Authorized [id number] Closed Consult, 05/11/2021 05/11/2022 1 1 Test & Treat Encounter Details Date Type Department Care Team Description 05/14/20[facility], Local[facility] edema; Radha GARCIA Dermatitis [address] [place] [address] [facility] [address]-DERMAT [place], [place] [address] (Wo rk) Social History Tobacco Use Types [...] RLE. She was seen in the ED [facility] 05/05/21 for elevated temperature and [...] weeks for follow up []Note routed to membership secretary []Recall placed in scheduling system [x]Appointment scheduled at checkout Scribe attestation: Itzel Randolph [facility] has performed the documentation for this encounter in the presence of and acting as a scribe for CHARLENE LOZADA MD. I performed the above scribed service and agree with the accuracy of the documentation in this encounter. Reviewed and signed by: CHARLENE LOZADA MD Dermatology [facility] documented in this encounter Plan of [...] google or use a book such as Black Card Media (available on Mobi-Moto) OR WalkSource (if you're using a package, it will [...] cause documented in this encounter Care Teams Restaurant Expeditor Relationship Specialty Start Date End Date Alphonso Murphy MD PCP - General Family Medicine 02/19/[address] [facility] [facility] [address] [place] [address] documented as of this encounter
--- OUTSIDE RECORDS SUMMARY | 2022-05-03 09:08 | XMS_ITS | Encounter Summary ---
:1955 Author Organization [facility] [place] [address] Care Team Providers Name Role Phone Alphonso Murphy MD Primary Care Provider [phone] Reason for Referral Consultation (Urgent) - Closed Specialty Diagnoses / Procedures Referred By Contact Refer red To Contact Dermatology Diagnoses Venous stasis ulcer of right calf limited to breakdown of skin, unspecified whether varicose veins present Amy Bhatia APRN [facility] Dermatology [facility] [address] [place] [address] [place] [address] Referral ID Status Reason Start Date Expiration Date Visits V isits Requested Authorized [id number] Closed Consult, 05/11/2021 05/11/2022 1 1 Test & Treat Encounter Details Date Type Department Care Team Description 05/11/2021 Office Visit Wound Care at [facility] Venous stasis ulcer of right calf limited to breakdown of skin, unspecified whether varicose veins present (Primary Dx); [facility] DEISY Magana Lymphedema of both lower extremities; [facility] Venous insufficiency of both lower extremities [facility] [address] WOUND CENTER [place], [place] [address] [phone] Social History Tobacco Use Types Packs/Day Years [...] with any above symptoms Tuesday- Tuesday 8:00AM-4:30PM ([phone]). If weekends / holidays / evenings, please report to the Emergency Department. ?? High Protein foods: try to eat 5-6 servings of these per day Beef, chicken, fish Beans, Lentils, peanut butter Kazakh and regular yogurt Cheese, eggs ?? Boost, Ensure shakes Protein powder in a smoothie of your choice ? documented in this encounter Progress Notes Amy Bhatia APRN - 05/11/2021 1:45 PM EDT Images from the original note were not included. [facility] Progress Note Reason [...] Cefazolin. 05/05/21 Seen in the ED [place] for recurring infection to RLE and completed another course of oral antibiotics. [facility]NA: [facility] initiated 04/01/21 Patient Active Problem List [...] her last visit in the ED at [facility]. She wears a compression stockings to [...] RLE. She was seen in the ED [facility] 05/05/21 for elevated temperature and increased [...] with any above symptoms Tuesday- Tuesday 8:00AM-4:30PM ([phone]). If weekends / holidays / evenings, please report to the Emergency Department. ?? High Protein foods: try to eat 5-6 servings of these per day Beef, chicken, fish Beans, Lentils, peanut butter Kazakh and regular yogurt Cheese, eggs ?? Boost, [...] google or use a book such as Music Connect (available on CloudWalk) OR AirPatrol Corporation (if you're using a package, it [...] mities documented in this encounter Care Teams Foxing Closer Relationship Specialty Start Date End Date Alphonso Murphy MD PCP - General Family Medicine 02/19/[address] [place] [address] documented as of this encounter
--- OUTSIDE RECORDS SUMMARY | 2022-05-03 09:08 | XMS_ITS | Encounter Summary ---
:1955 Author Organization [place] [address] Care Team Providers Name Role Phone Alphonso Murphy MD Primary Care Provider [phone] Encounter Details Date Type Department Care Team Description 05/12/2021 Telephone Physical Therapy at [facility] [place] [address] Social History Tobacco Use Types Packs/Day [...] fax confirmation from sending to [facility] #[phone]. For Emmett Mcintosh, PT on Tuesday05/11/2021 documented [...] or use a book such as Calorie Syntonic Wireless (available on BreakTheCrates.com) OR CCP Games (if you're using a package, it will have calorie and protein info on the back) - The other thing to write down would be grams of protein - 1500 is a good starting point for a ca jeffrey goal documented as of this encounter Visit Diagnoses Not on filedocumented in this encounter Care Teams Electronic Parts Salesperson Relationship Specialty Start Date End Date Alphonso Murphy MD PCP - General Family Medicine 02/19/[address] [place] [address] documented as of this encounter
--- OUTSIDE RECORDS SUMMARY | 2022-05-03 09:08 | XMS_ITS | Encounter Summary ---
:1955 Author Organization [facility] [place] [address] Care Team Providers Name Role Phone Alphonso Murphy MD Primary Care Provider [phone] Encounter Details Date Type Department Care Team Description 03/23/2021 Laboratory Lab 3L [facility] S/P total [place] [phone] Social History Tobacco Use Types Packs/Day Years [...] google or use a book such as Vino Volo (available on [facility]) OR oort Inc (if you're using a package, it will [...] 31 15 - 65 BING BR[place]AY pg/mL [facility] Specimen Anatomical Collection Method Collection Time Receive d Time (Source) Location / / Volume Laterality Blood 03/23/2021 10:13 03/23/2021 AM EDT 10:21 AM EDT Resulting Agency Comment Spec In Lab Lisa Singh MD CHEMISTRY ORDERABLES Performing Organization Address City/[facility]/[place] [address] Calcium (03/23/2021 10:13 AM EDT) P athologist Signature Calcium 9.0 8.5 - 10.5 BING [place] mg/dL [facility] Specimen Anatomical Collection Method Collection Time Receive d Time (Source) Location / / Volume Laterality Blood 03/23/2021 10:13 03/23/2021 AM EDT 10:21 AM EDT Resulting Agency Comment Spec In Lab Lisa Singh MD CHEMISTRY ORDERABLES Performing Organization Address City/[facility]/ZIP [facility] [place] [address] documented in this encounter Visit Diagnoses Diagnosis S/P total thyroidectomy Other postprocedural status documented in this encounter Care Teams Seed Tester Relationship Specialty Start Date End Date Alphonso Murphy MD PCP - General Family Medicine 02/19/[address] [place] [address] documented as of this encounter
--- OUTSIDE RECORDS SUMMARY | 2022-05-03 09:08 | XMS_ITS | Encounter Summary ---
:1955 Author Organization [facility] [place] [address] Care Team Providers Name Role Phone Alphonso Murphy MD Primary Care Provider [phone] Reason for Visit Reason Comments Medication Refill Encounter Details Date Type Department Care Team Description 08/28/2021 Refill General Surgery at [facility] Morgan Blair MD [facility] [address] GENERAL SURGERY [phone] [place], [place] [address] (Wo rk) Social History Tobacco [...] book such as Calorie Adalberto (available on [facility]) OR Emitless (if you're using a package, it will have calorie and protein info on the back) - The other thing to write down would be grams of protein - 1500 is a good starting point for a ca jeffrey goal documented as of this encounter Visit Diagnoses Not on filedocumented in this encounter Care Teams Drafter Directional Survey Relationship Specialty Start Date End Date Alphonso Murphy MD PCP - General Family Medicine 02/19/[address] [place] [address] [address] [place] [address] documented as of this encounter
--- OUTSIDE RECORDS SUMMARY | 2022-05-03 09:08 | XMS_ITS | Encounter Summary ---
:1955 Author Organization [facility] [place] [address] Care Team Providers Name Role Phone Alphonso Murphy MD Primary Care Provider Encounter Details Date Type Department Care Team Description 07/30/2021 Telephone Pulmonology at [facility] [place] [address] Social History Tobacco Use Types Packs/Day [...] google or use a book such as DidLog (available on Canesta) OR Autonomous Marine Systems (if you're using a package, it will have calorie and protein info on the back) - The other thing to write down would be grams of protein - 1500 is a good starting point for a ca jeffrey goal documented as of this encounter Visit Diagnoses Not on filedocumented in this encounter Care Teams Business Sales Consultant Relationship Specialty Start Date End Date Alphonso Murphy MD PCP - General Family Medicine 02/19/[address] [place] [address] documented as of this encounter
--- OUTSIDE RECORDS SUMMARY | 2022-05-03 09:08 | XMS_ITS | Encounter Summary ---
:1955 Author Organization [facility] [place] [address] Care Team Providers Name Role Phone Alphonso Murphy MD Primary Care Provider [phone] Reason for Visit Reason Comments Wound Check Right leg Auth/Cert Specialty Diagnoses / Procedures Referred By Contact Refer red To Contact Diagnoses Cellulitis Procedures EMERGENCY OBSVO Referral ID Status Reason Start Date Expiration Date Visits Requ ested Visits Authorized [id number] 1 1 Encounter Details Date Type Department Care Team Description 04/19/2021 - Emergency Emergency Department Dede Perez MD [facility] [place]ERGENCY [place] [address] Cellulitis (Primary 04/20/2021 Alisa Cooper MD [facility] EMERGENCY [place] [address] Dx) [facility] Dionte Ray MD [facility] [place] [address] [place] [address] Social History Tobacco Use Types Packs/Day Years [...] cannot be sent through Care Everywhere. Cellulitis (Kyrgyz)documented in this encounter Medications at Time of [...] 06/2019 (FLONASE) 50 route daily as mcg/actuation [place], needed. 04/06 Patient Suspension states that she [...] hemodynamically stable, and in no acute distress. Dointe Ray MD 04/20/21 1210 Morgan Doll PA [...] PCR Not Detected Not Detected SARS-CoV-2 Source SERVICE DESK ASSOCIATE Swab Pending Studies and Lab Data: n/a [...] REMOVE Please contact the Blood Bank at [phone] for questions. ??? Iodine And Iodide Containing Products rash ??? Oxycodone Rash ??? Morphine Rash Other reaction(s): PRURITIS Future Appointments and Orders Future Appointments and Orders Future Appointments Provider Department Dept Phone 04/22/2021 2:30 PM Jina Castrejon Vascular Lab at [facility] Arrive at: Supervisor [place] [employer] 3V [phone] 04/22/2021 3:15 PM Amy Germain APRN Wound Care at [facility] Arrive at: Supervisor [place] [employer] 4M [phone] 07/28/2021 10:30 AM Mike Robles MD Pulmonology at [facility] Arrive at: Supervisor [place] [employer] 5C [phone] General Instructions You were evaluated emergency department [...] contact the Clinical Decision Unit through the [facility] Infrastructure Software Engineer . Morgan Doll PA 04/20/21 1142 Emily [...] REMOVE Please contact the Blood Bank at [phone] for questions. ??? Iodine And Iodide Containing [...] 1.57) performed by Lisa Singh MD at [facility] MAIN OR ??? PRG US GUIDE INTRAOP N/A 03/03/2021 ULTRASONIC GUIDANCE, INTRAOP (WRVU 1.2) performed by Lisa Singh MD at [facility] MAIN OR ??? PRO THYROIDECTOMY=SUBSTERNAL, TRANSCERV Bilateral 03/03/2021 THYROIDECTOMY, INCL. SUBSTERNAL, CERVICAL APPROACH (WRVU 17.62) performed by Lisa Singh MD at [facility] MAIN OR Social History Socioeconomic History [...] file Social History Narrative Lives in [facility]. Daughter lives with her for [...] src: Temporal SpO2: 97 % O2 Device: MI O2 Flow Rate (L/min): 3 L/min Physical [...] the patient. Vianca Zuniga MD Resident 04/19/21 0132 ED ATTENDING ATTESTATION NOTE The patient was [...] or use a book such as Calorie RealSelf (available on Genomed) OR PixelEXX Systems (if you're using a package, it [...] Results COVID-19 PCR (04/19/2021 7:09 PM EDT) [facility] Method Time Signature SARS-CoV-2 Not Detected Not Detected BING RNA PCR [facility] Comment: This result should be interpreted [...] using the Simplexa COVID-19 Direct Assay by Gatekeeper Systemcaleb Avalanche Technology as authorized by the FDA issued Emergency [...] Department of Pathology and Laboratory Medicine at [facility], certified under the Clinical Laboratory Improvement [...] clinical management guidance information are available at [facility] CDC Coronavirus Disease 2019 (COVID-19) webpage under Information fo r Healthcare Professionals (https://www.cdc.gov/coronavirus/2019-nc ov/hcp/index.html). Additional information about this and ot her EUA tests can be found in provider and patient fact sheets at the following FDA website: https://www.fda.gov/medical-devices/oapmdovgzum-nwnzpux-6487-ambvd-02-fiupnpljf- etc-nhxsfzcduufxfw-xlwkyxk-devices/zppil-euidgoyxtlw-thnj SARS-CoV-2 Source SERVICE DESK ASSOCIATE Swab [facility] Specimen (Source) Anatomical Collection Method Collection Time Re ceived Time Location / / Volume Laterality Nasopharyngeal Swab 04/19/2021 7:09 04/19 PM EDT 8:11 PM EDT Comment: Symptoms->Surveillance Resulting Agency Comment Spec In Lab Marion Perez MD MICROBIOLOGY - GENERAL ORDER MARY Performing Organization Address City/State/ZIP Code Phon e Number [place] [id number] Differential, Automated (04/19/2021 6:40 PM EDT) athologist Signature Neutrophils % 62.7 % [facility] Neutr Abs (ANC) 5.82 1.70 - [facility] 6.10 [facility] x10(3)/[facility] LABORATORY Lymphocytes % 23.9 % [facility] Lymphocytes Abs 2.2 0.9 - 3.2 [facility] x10(3)/[facility] LABORATORY Monocytes % 9.6 % [facility] Monocyte Abs 0.9 0.3 - 0.9 [facility] x10(3)/[facility] LABORATORY Eosinophils % 3.1 % [facility] Eosinophils Abs 0.3 0.0 - 0.4 [facility] x10(3)/[facility] LABORATORY Basophils % 0.4 % [facility] Basophils Abs 0.0 0.0 - 0.1 [facility] x10(3)/[facility] LABORATORY Immature Gran % 0.30 [...] Surekha Gran Abs 0.03 0.00 - 0.04 x10(3)/[facility] Specimen Anatomical Collection Method Collection Time Receive d Time (Source) Location / / Volume Laterality Blood 04/19/2021 6:40 PM 6:51 EDT PM EDT Resulting Agency Comment Spec In Lab Vianca Zuniga MD HEMATOLOGY ORDERABLES Performing Organization Address City/State/ZIP [place] [address] Hemogram (04/19/2021 6:40 PM EDT) P athologist Signature WBC 9.3 4.0 - 9.5 [facility] x10(3)/[facility] LABORATORY RBC 5.05 4.00 - [facility] 5.21 [facility] x10(6)/[facility] LABORATORY Hemoglobin 14.4 11.7 - [facility] 15.5 gm/dL [facility] Hematocrit 42.9 35.7 - [facility] 45.8 % [facility] MCV 85.0 82.6 - [facility] 94.4 [facility] LABORATORY MCH 28.5 27.1 - [facility] 32.0 pg [facility] MCHC 33.6 31.7 - [facility] 35.0 gm/dL [facility] Platelets 282 145 - 357 [facility] x10(3)/[facility] LABORATORY RDWSD 42.3 37.0 - [facility] JAY 46.0 [facility] RDWCV 13.6 11.5 - [facility] 14.1 % [facility] MPV 10.7 7.6 - 12.9 [facility] LABORATORY nRBC % Auto 0.0 % [facility] nRBC Abs Auto 0.000 0.000 - [facility] 0.000 [facility] x10(3)/[facility] LABORATORY Specimen Anatomical Collection Method Collection Time Receive d Time (Source) Location / / Volume Laterality Blood 04/19/2021 6:40 PM 6:51 EDT PM EDT Resulting Agency Comment Spec In Lab Vianca Zuniga MD HEMATOLOGY ORDERABLES Performing Organization Address City/State/ZIP [place] [address] Basic Metabolic Panel (non-fasting) (04/19/2021 6:40 PM EDT) P athologist Signature Glucose Lvl 137 65 - 199 [facility] mg/dL [facility] Comment: Diabetes: >=200 mg/dL plus symp toms BUN 18 8 - 18 mg/dL [facility] Creatinine 0.73 0.70 - 1.20 mg/dL [facility] Sodium 139 135 - 145 mmol/L [facility] Anion Gap 10 5 - 15 mmol/L [facility] Calcium 8.7 8.5 - 10.5 mg/dL [facility] Estimated GFR 87 >=60 mL/min/1.73 m?? [...] Organization Address City/State/ZIP Code Phon e Number [place] [phone] documented in this encounter [...] tablet 100 mg 213 (Given - Provider: lAisa Zapien, OZ) 1016 (Given - Provider: Ann [...] Routine documented in this encounter Care Teams Digester Cook Relationship Specialty Start Date End Date Alphonso Murphy MD PCP - General Family Medicine 02/19/16 [address] [place] [address] documented as of this encounter
--- OUTSIDE RECORDS SUMMARY | 2022-05-03 09:08 | XMS_ITS | Encounter Summary ---
:1955 Author Organization [facility] [place] [address] Care Team Providers Name Role Phone Alphonso Murphy MD Primary Care Provider [phone] Encounter Details Date Type Department Care Team Description 06/08/2021 Office Visit Wound Care at [facility] of both lower extremities; [facility] DEISY Magana Venous insufficiency of both lower extre mities; [facility] Venous stasis ulcer of right calf limited to breakdown of skin, unspecified whether varicose veins present; [facility] Contact dermatitis, unspecified contact dermatitis type, unspecified trigger Drive WOUND CENTER [place] [address] [phone] Social History Tobacco Use Types Packs/Day Years [...] with any above symptoms Tuesday- Tuesday 8:00AM-4:30PM ([phone]). If weekends / holidays / evenings, please [...] x 4 weeks for contact Dermatitis VNA: [facility] initiated 04/01/21 Patient Active Problem [...] wraps, patient verbalized understanding. Patient reassessed by CULTURE ROOM WORKER. Patient denies pain, tingling or numbness to [...] RLE. She was seen in the ED [facility] 05/05/21 for elevated temperature [...] with any above symptoms Tuesday- Tuesday 8:00AM-4:30PM ([phone]). If weekends / holidays / evenings, please [...] On track (09/21/2019 12:34 PM EST) Dimple Augustni RD Note: Formatting of this note might [...] google or use a book such as EndoDex (available on Hornet Networks) OR Watchup (if you're using a package, it will [...] trigger documented in this encounter Care Teams Soil Expert Relationship Specialty Start Date End Date Alphonso Murphy MD PCP - General Family Medicine 02/19/[address] [place] [address] [address] [place] [address] documented as of this encounter
--- OUTSIDE RECORDS SUMMARY | 2022-05-03 09:08 | XMS_ITS | Encounter Summary ---
:1955 Author Organization [facility] [place] [address] Care Team Providers Name Role Phone Alphonso Murphy MD Primary Care Provider [phone] Reason for Referral Home Health Care (Routine) - Closed Specialty Diagnoses / Procedures Referred By Contact Refer red To Contact Unknown Specialty Diagnoses Venous stasis ulcer of right calf limited to breakdown of skin, unspecified whether varicose veins present Venous insufficiency of both lower extremities Lymphedema of both lower [place] [address] Referral ID Status Reason Start Date Expiration Visits Visits Date Requested Authorized [id number] Closed Continuity of 03/30/2021 09/26/2021 99 99 Care Non PCP Reason for Visit Consultation (Urgent) - Closed Specialty Diagnoses / Procedures Referred By Contact Refer red To Contact Wound Care Diagnoses Venous stasis ulcer of calf, unspecified laterality, unspecified ulcer stage, unspecified whether varicose veins present Lisa Singh MD [facility] D [facility] [place] [address] [place] [address] Referral ID Status Reason Start Date Expiration Date Visits V christine Requested Authorized [id number] Closed Consult, 03/23/2021 03/23/2022 1 1 Test & Treat Encounter Details Date Type Department Care Team Description 03/30/2021 Office Visit Wound Care at [facility] Venous stasis ulcer of right calf limited to breakdown of skin, unspecified whether varicose veins present (Primary Dx); [facility] DEISY Magana Venous insufficiency of both lower extre mities; [facility] MEDICAL Lymphedema of both lower ext remities [facility] WOUND [place], [place] [address] [phone] Social History Tobacco Use Types Packs/Day Years [...] with any above symptoms Tuesday- Tuesday 8:00AM-4:30PM ([phone]). If weekends / holidays / evenings, please report to the Emergency Department. documented in this encounter Progress Notes Amy Bhatia APRN - 03/30/2021 4:00 PM EDT Images from the original note were not included. [facility] Initial Consultation Note HPI: [...] to the patient's appointment. VNA: Will begin [facility] 04/01/21 Patient Active Problem List [...] drainage (thick yellow/green drainage) Malodor Contact the [facility] with any above symptoms Tuesday- Tuesday 8:00AM-4:30PM ([phone]). If weekends / holidays / evenings, please report to the Emergency Department. Cc: Lisa Singh MD [facility] DR GENERAL SURGERY [place] [id number] PCP: Alphonso Murphy MD documented in this encounter Miscellaneous Notes Addendum Note - Amy Bhatia APRN - 03/30/2021 4:00 PM EDT Addended by: AMY BHATIA on: 03/30/2021 05:59 PM Modules accepted: Orders documented in this encounter Plan of Treatment Scheduled Referrals Name Type Priority Associated Diagnoses Order S chedule Referral to Home Outpatient Referral Routine Venous stasis [facility] er of Ordered: Health - Clinic right [...] or use a book such as Calorie SMGBB (available on Kids Calendar) OR FriendCode.Dream[employer] (if you're using a package, it will [...] extremities documented in this encounter Care Teams Chief Operations Officer Relationship Specialty Start Date End Date Alphonso Murphy MD PCP - General Family Medicine 02/19/[address] [place] [address] documented as of this encounter
--- OUTSIDE RECORDS SUMMARY | 2022-05-03 09:08 | XMS_ITS | Encounter Summary ---
:1955 [place] [address] Care Team Providers Name Role Phone Alphonso Murphy MD Primary Care Provider [phone] Encounter Details Date Type Department Care Team Description 06/10/2021 Telephone Wound Care at [facility] [place] [address] Social History Tobacco Use Types Packs/Day [...] google or use a book such as Special Network Services (available on [employer]) OR Revolve. (if you're using a package, it will have calorie and protein info on the back) - The other thing to write down would be grams of protein - 1500 is a good starting point for a ca jeffrey goal documented as of this encounter Visit Diagnoses Not on filedocumented in this encounter Care Teams Sealer Operator Relationship Specialty Start Date End Date Alphonso Murphy MD PCP - General Family Medicine 02/19/[address] [place] [address] documented as of this encounter
--- OUTSIDE RECORDS SUMMARY | 2022-05-03 09:08 | XMS_ITS | Encounter Summary ---
:1955 Author Organization [facility] [place] [address] Care Team Providers Name Role Phone Alphonso Murphy MD Primary Care Provider Reason for Referral Diagnostic Test (Routine) - Closed Specialty Diagnoses / Procedures Referred By Contact Refer red To Contact Diagnoses Venous stasis ulcer of right calf limited to breakdown of skin, unspecified whether varicose veins present Venous insufficiency of both lower extremities Lymphedema of both lower extremities Amy Bhatia APRN [facility] Vascular Lab 3v Procedures JESUS ALBERTO, legs, multiple levels [facility] [place] [address] [place] [address] Referral ID Status Reason Start Date Expiration Date Visits V isits Requested Authorized [id number] Closed Specialty 04/13/2021 04/13/2022 1 1 Service Requested Encounter Details Date Type Department Care Team Description 04/13/2021 Office Visit Wound Care at [facility] Venous stasis ulcer of right calf limited to breakdown of skin, unspecified whether varicose veins present (Primary Dx); [facility] DEISY Magana Venous insufficiency of both lower extre mities; [facility] Lymphedema of both lower ext remities [facility] Center [address] WOUND CENTER [place], [place] [facility] [place] [address] [phone] Social History Tobacco Use Types Packs/Day Years [...] with any above symptoms Tuesday- Tuesday 8:00AM-4:30PM ([phone]). If weekends / holidays / evenings, please [...] (Vancomycin)then discharged to home on Cefazolin. VNA: [facility] initiated 04/01/21 Patient Active Problem List [...] drainage (thick yellow/green drainage) Malodor Contact the [facility] with any above symptoms Tuesday- Tuesday 8:00AM-4:30PM ([phone]). If weekends / holidays / evenings, please report to the Emergency Department. Cc: Alphonso Murphy MD [address] [place] [address] PCP: Alphonso Muprhy MD documented in this encounter Plan of [...] google or use a book such as Chevia (available on P[employer]) OR Ibex Outdoor [employer]othing (if you're using a package, it will have calorie and protein info on the back) - The other thing to write down would be grams of protein - 1500 is a good starting point for a ca jeffrye goal documented as of this encounter Results JESUS ALBERTO, legs, multiple levels (04/30/2021 12:42 PM EDT) Component Value Ref Test Analysis Performed At [facility] gist Range Method Time Signature VB Text Department: Vascular Surgery Lab VASCUBASE Report Patient: [id number] (CYN MASTERSON) CPT: 60509 ICD10: I87.2;L97.211;I89.0;I83.012 Referring Physician: AMY BHATIA ?? [...] extremities documented in this encounter Care Teams Dampener Relationship Specialty Start Date End Date Alphonso Murphy MD PCP - General Family Medicine 02/19/[address] [place] [address] documented as of this encounter
--- OUTSIDE RECORDS SUMMARY | 2022-05-03 09:09 | XMS_ITS | Encounter Summary ---
:1955 Author Organization [facility] [place] [address] Care Team Providers Name Role Phone Alphonso Murphy MD Primary Care Provider [phone] Reason for Referral Consultation (Routine) - Closed Specialty Diagnoses / Procedures Referred By Contact Refer red To Contact Pulmonology Diagnoses Multinodular goiter Lisa Singh MD [facility] [address] [place] [address] [place] [address] [place] [address] Referral ID Status Reason Start Date Expiration Date Visits V isits Requested Authorized [id number] Closed Consult, 09/02/2020 09/02/2021 1 1 Test & Treat iagnostic Test (Routine) - Closed Specialty Diagnoses / Procedures Referred By Contact Refer red To Contact Radiology Diagnoses Multinodular goiter Lisa Singh MD [facility] Rad Ct Scan Procedures CT Neck Soft Tissue w Contrast (Generic) CT Neck Soft Tissue wwo Contrast [facility] [place] [facility] [place] [address] [place] [address] Referral ID Status Reason Start Date Expiration Date Visits V isits Requested Authorized [id number] Closed Specialty 08/29/2020 02/26/2022 1 1 Service [...] ~3.2 cm, difficult to biopsy MD GARCIA [facility] Ron Thompson [facility] ENDOCRINOLOGY [place] [address] Fax: Referral ID Status Reason Start Date Expiration Date Visits V isits Requested Authorized [id number] Closed Consult, 08/12/2020 08/12/2021 1 1 Test & Treat Encounter Details Date Type Department Care Team Description 08/29/2020 Office Visit General Surgery at Lisa Singh MD Multinodular goiter [facility] (Primary Dx) [facility] [address] GENERAL SURGERY [place], [place] [address] [phone] Social History Tobacco Use Types Packs/Day Years [...] to pulmonology for your COPD here at [facility]. I will call you back after CT scan is done and after pulmonology has evaluated you. documented in this encounter Progress Notes Lisa Singh MD - 08/29/2020 9:00 AM EST Images from the original note were not included. Endocrine Surgery Consultation Dear Providers, Thank you for referring your patient to our [facility] Endocrine Surgery Clinic. Ms. Radha Masterson [...] 0 ??? fluticasone propionate (FLONASE) 50 mcg/actuation [place], Suspension, SHAKE LQ AND U 1 SPR [...] would like her set up with a running rigger here for evaluation and risks stratify her [...] visit today. Sincerely, Lisa Singh MD, FACS Tactical Debriefer, Section of General Surgery Division of Endocrine Surgery [facility] Data There is no height or [...] of compression: YES FNA: no FNA Classification: [place] n/a documented in this encounter Plan of [...] google or use a book such as LoyaltyLion (available on P[employer]) OR Eneedo (if you're using a package, it will [...] ? Electronically signed by: Tomás shipman MD, [facility] ([phone]), at 09/09/2020 9:20 AM Narrative 09/09/2020 9:20 AM EST EXAMINATION: CT NECK SOFT TISSUE W CONTRAST (GENERIC) CLINICAL HISTORY: Neck mass, multiple (A ge > 15y) Multinodular goiter TECHNIQUE: CT neck performed after the intravenous administration of 60 ml of OMNIPAQUE 350.00 mg/ml. COMPARISON: Thyroid ultrasound from outside [facility] 07/17/2020 FINDINGS: The images are degraded [...] 350.00 mg/ml. COMPARISON: Thyroid ultrasound from outside [facility] 07/17/2020 FINDINGS: The images are degraded [...] below. Electronically signed by: Tomás shipman MD, [facility] ([phone]), at 09/09/2020 9:20 AM Lisa Singh MD IMG CT ORDERABLES documented in this encounter Visit Diagnoses Diagnosis Multinodular goiter - Primary Nontoxic multinodular goiter Multinodular goiter Nontoxic multinodular goiter documented in this encounter Care Teams Kitchen Porter Relationship Specialty Start Date End Date Alphonso Murphy MD PCP - General Family Medicine 02/19/[address] [place] [address] documented as of this encounter
--- OUTSIDE RECORDS SUMMARY | 2022-05-03 09:09 | XMS_ITS | Encounter Summary ---
:1955 Author Organization [facility] [place] [address] Care Team Providers Name Role Phone Alphonso Murphy MD Primary Care Provider [phone] Encounter Details Date Type Department Care Team Description 12/09/2020 TH Visit (TeleHealth) Same Day at [facility] [place] [address] Social History Tobacco Use Types Packs/Day [...] google or use a book such as CyberX (available on DeviceAuthority) OR Tadpoles (if you're using a package, it will have calorie and protein info on the back) - The other thing to write down would be grams of protein - 1500 is a good starting point for a ca jeffrey goal documented as of this encounter Visit Diagnoses Not on filedocumented in this encounter Care Teams Fruit Thinner Relationship Specialty Start Date End Date Alphonso Murphy MD PCP - General Family Medicine 02/19/[address] [place] [address] documented as of this encounter
--- OUTSIDE RECORDS SUMMARY | 2022-05-03 09:09 | XMS_ITS | Encounter Summary ---
:1955 Author Organization [facility] [place] [address] Care Team Providers Name Role Phone Alphonso Murphy MD Primary Care Provider [phone] Encounter Details Date Type Department Care Team Description 09/17/2020 Telephone Pulmonology at [facility] [place] [address] Social History Tobacco Use Types Packs/Day [...] google or use a book such as FClub (available on ChipX) OR mycujoo (if you're using a package, it will have calorie and protein info on the back) - The other thing to write down would be grams of protein - 1500 is a good starting point for a ca jeffrey goal documented as of this encounter Visit Diagnoses Not on filedocumented in this encounter Care Teams Blade Operator Relationship Specialty Start Date End Date Alphonso Murphy MD PCP - General Family Medicine 02/19/[address] [place] [address] documented as of this encounter
--- OUTSIDE RECORDS SUMMARY | 2022-05-03 09:09 | XMS_ITS | Encounter Summary ---
:1955 Author Organization [facility] [address] Care Team Providers Name Role Phone Alphonso Murphy MD Primary Care Provider [phone] Encounter Details Date Type Department Care Team Description 06/18/2020 Telephone Orthopaedics at [facility] Osmin Castañeda [facility] Ron coyle Jr., [place] [address] [facility] [phone] ORTHOPAEDIC SURG [place], [place] [address] (Wo rk) Social History Tobacco [...] google or use a book such as LetsWombat (available on Perfect Price) OR Novogenie (if you're using a package, it will have calorie and protein info on the back) - The other thing to write down would be grams of protein - 1500 is a good starting point for a ca jeffrey goal documented as of this encounter Visit Diagnoses Not on filedocumented in this encounter Care Teams Bee Raiser Relationship Specialty Start Date End Date Alphonso Murphy MD PCP - General Family Medicine 02/19/[address] [place] [address] documented as of this encounter
--- OUTSIDE RECORDS SUMMARY | 2022-05-03 09:09 | XMS_ITS | Encounter Summary ---
:1955 Author Organization [facility] Address [place] [id number] Care Team Providers Name Role Phone Alphonso Murphy MD Primary Care Provider [phone] Reason for Referral Diagnostic Test (Routine) - Closed Specialty Diagnoses / Procedures Referred By Contact Refer red To Contact Cardiology Diagnoses Pulmonary hypertension Tex Edwards MD [facility] Non-Inv Card Lab Procedures Echocardiogram Transthoracic([facility] or [facility]) [facility] [address] [place] [address] Fax: Referral ID Status Reason Start Date Expiration Date Visits V isits Requested Authorized [id number] Closed Specialty 01/01/2021 01/01/2022 1 1 Service Requested Reason for Visit Diagnostic Test (Routine) - Closed Specialty Diagnoses / Procedures Referred By Contact Refer red To Contact Cardiology Diagnoses Pulmonary hypertension Tex Edwards MD [facility] Non-Inv Card Lab Procedures Echocardiogram Transthoracic([facility] or [facility]) [facility] [place] [address] [place] [address] Fax: Referral ID Status Reason Start Date Expiration Date Visits V isits Requested Authorized [id number] Closed Specialty 01/01/2021 01/01/2022 1 1 Service Requested Encounter Details Date Type Department Care Team Description 01/06/2021 Hospital Encounter Non-Invasive Tex Edwards, [facility] Cardiology Lab Margy GARCIA hypertension [facility] [place] [phone] Social History Tobacco Use Types Packs/Day Years [...] OXYGEN-AIR DELIVERY 2 L. 0 12/24/2014 [facility] aspirin 325 mg Tablet Take 325 mg [...] 06/2019 (FLONASE) 50 route daily as mcg/actuation [place], needed. 04/06 Patient Suspension states that she [...] google or use a book such as InstaJob (available on [employer]) OR Parrut (if you're using a package, it will [...] ?YOUNG CYN ?(Age): 1955(65y) Med Rec#: ? [id number] ?Sex: ?F ? Site Loc: ? [facility] ?Ht / Wt: ??160(cm)/190.5(k Pt. Loc: ?BSA: ?2.65 Study Date: ?? 01/06/2021 ?Pt. Type: Outpatient Tape: ? Referring: Tex Edwards ([id number]) Reading: Frandy Steiner ([id number]) Account Financial Manager: Aaliyah Conley Diagnosis: *Other secondary pulmonary hypertension [...] Vmax ?1.15 ? m/sec ? MV deceleration qcra612.87 ? m sec ? MV A-wave Vmax [...] ? Mid-Inferior ?Normal ? Mid-Inferoseptal ?Normal ? [place]-Septal ? Normal ? [place]-Anterior ? Normal ? [place]-Lateral ?Normal ? [place]-Inferior ? Normal ? [place]-Tip ?Normal ? This report has been electronically sign ed by: _ Frandy Steiner MD ? 01/06/2021 14:10:00 Images reviewed and interpretation verif ied [facility] Cardiac Ultrasound Laboratory Procedure Note Frandy Steiner MD - 01/06/2021Forma tting of this note might be different from the original. Procedure: Transthoracic Echocardiogram Patient: JOHAN CASTANEDA(Age): 1955 (65y) Med Rec#: [id number] Sex: F Site Loc: [facility] Ht / Wt: 160(cm)/190.5(k Pt. Loc: BSA: 2.65 Study Date: 01/06/2021 Pt. Type: Outpati ent Tape: Referring: Tex Edwards ([id number]) Reading: Frandy Steiner ([id number]) Account Financial Manager: Aaliyah Conley Diagnosis: *Other secondary pulmonary hypertension [...] MV E-wave Vmax 1.15 m/sec MV deceleration [id number] msec MV A-wave Vmax 1.17 m/sec MV [...] Normal Mid-Posterolateral Normal Mid-Inferior Normal Mid-Inferoseptal Normal [place]-Septal Normal [place]-Anterior Normal [place]-Lateral Normal [place]-Inferior Normal [place]-Tip Normal This report has been electronically sign ed by: _ Frandy Steiner MD 01/06/2021 14:10: 00 Images reviewed and interpretation verif ied [facility] Cardiac Ultrasound Laboratory Tex Edwards [...] Routine documented in this encounter Care Teams Gold Assayer Relationship Specialty Start Date End Date Alphonso Murphy MD PCP - General Family Medicine 02/19/[address] [place] [address] (work) documented as of this encounter
--- OUTSIDE RECORDS SUMMARY | 2022-05-03 09:09 | XMS_ITS | Encounter Summary ---
:1955 Author Organization [facility] Address [address] [place] [address] Care Team Providers Name Role Phone Alphonso Murphy MD Primary Care Provider Encounter Details Date Type Department Care Team Description 01/20/2021 Office Visit Pulmonology at [facility] Travis, Chronic respiratory failure with hypoxia and hypercapnia (Primary Dx); 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 Obesity hypoventilation syndrome; [place], [place] DAVID (obstructiv e sleep apnea) [address] Social History Tobacco Use Types Packs/Day Years [...] visit. You can reach me by phone ([phone]) or by sending a [employer] message. Mike Coughlin MD documented in this encounter Progress Notes Mike Robles MD - 01/20/2021 10:30 AM EDT Images from the original note were not included. [facility] Section of Pulmonary and Critical Care Medicine Outpatient Consultation Follow-up Date of Encounter: 01/20/2021 This was a [id number]-[id number] office visit. Referring Provider: Alphonso Murphy MD [address] [place], [place] [address] [address] [place] [address] Brief Summary Radha Masterson is a 65 [...] tablet, Rfl: 3 ??? OXYGEN-AIR DELIVERY [facility], 2 L., Disp: , Rfl: ??? aspirin [...] 0 ??? fluticasone propionate (FLONASE) 50 mcg/actuation [place], Suspension, SHAKE LQ AND U 1 SPR [...] most recent TTE shows a stable PASP [id number] though I will defer to Dr. Edwards [...] if new issues arise. Mike Robles MD [facility] Spray Machine Tenderpvc loader Pulmonary and Critical Care Medicine [place] [id number] [email or web address] documented in this encounter Plan of [...] google or use a book such as Pronota (available on o9 Solutions) OR Channelsoft ([place]) Technology (if you're using a package, it [...] ic) documented in this encounter Care Teams Sheet Metal Duct Worker Supervisor Relationship Specialty Start Date End Date Alphonso Murphy MD PCP - General Family Medicine 02/19/[address] [place] [address] documented as of this encounter
--- OUTSIDE RECORDS SUMMARY | 2022-05-03 09:09 | XMS_ITS | Encounter Summary ---
:1955 [place] [address] Care Team Providers Name Role Phone Alphonso Murphy MD Primary Care Provider [phone] Reason for Visit Auth/Cert Specialty Diagnoses / Procedures Referred By Contact Refer red To Contact Diagnoses Multinodular goiter MULTINODULAR GOITER Procedures PRO THYROIDECTOMY=SUBSTERNAL, TRANSCERV PRG EMG, LARYNX PRG US GUIDE INTRAOP THYROIDECTOMY, INCL. SUBSTERNAL, CERVICAL APPROACH (WRVU 17.62) FACIAL NERVE MONITORING, SETUP LARYNGEAL (WRVU 1.57) ULTRASONIC GUIDANCE, INTRAOP (WRVU 1.2) Referral ID Status Reason Start Date Expiration Date Visits Requ ested Visits Authorized [id number] 1 1 Encounter Details Date Type Department Care Team Description 03/03/2021 Anesthesia Event Main Operating Room Jose C Castillo MD [facility] [place] [address] [facility] Morales Griffith MD [facility] [place] [address] [phone] ([place] [address] Anesthesia Record Procedure Summary Procedure Name [...] hand), left; Kenneth Lindquist, Mary Toure RN ymwm-xba-baxaob catheter system; 22 gauge; distraction, intradermal injection, [...] Bran Cha rlotte A, RN arm), right; [id number]-[id number] catheter system; Anatomical Landmarks; 20 gauge; Barr, [...] Procedure Summary Date: 03/03/21 Room / Location: [facility] OR [facility] MAIN OR Anesthesia Start: 741 Anesthesia Stop: 1209 Procedures: THYROIDECTOMY, INCL. SUBSTERNAL, CERVICAL APPROACH (WRVU 17.62) (Bilateral Neck) FACIAL NERVE MONITORING, SETUP LARYNGEAL (WRVU 1.57) (N/A Neck) ULTRASONIC GUIDANCE, INTRAOP (WRVU 1.2) (N/A Neck) Diagnosis: (MULTINODULAR GOITER) Surgeons: Lisa Singh MD Responsible Provider: Jose C Forde MD Anesthesia Type: general ASA Status: 4 All Anesthesia Providers: Anesthesiologist: Jose C Forde MD Crew Boat Operator: Nathan Barr DO Vitals Value Taken Time BP 131/74 03/03/21 1630 Temp 37.1 ??C (98.8 ??F) 03/03/21 1430 Pulse 0 03/03/21 1639 Resp 22 03/03/21 1637 SpO2 95 % 03/03/21 1636 Pain Level 0 03/03/21 1430 Vitals shown include unvalidated device data. Patient Location: PACU/[facility] Level of Consciousness: Awake and Alert Pain [...] REMOVE Please contact the Blood Bank at [phone] for questions. -- Iodine And Iodide Containing [...] extubate to BiPAP Nathan Barr DO Pager: [phone] Attending addendum (MD Forde) Patient seen and [...] (BMI 74) extensive former smoker presenting to [facility] ahead of thyroidectomy for multinodular goiter with [...] [facility] [...] Griffith MD 12/03/2020 PCC Attending Addendum 02/25/21: Sharepoint Specialist, Supervisor [place] clinic notes and TTE reviewed, no additional [...] google or use a book such as EosHealth (available on yWorld) OR LUXA (if you're using a package, it will [...] EDT 3 g infusion 3 g, Intravenous, ENVIRONMENTAL ENGINEER TO O.R., 1 dose, On Tue03/03/21 at [...] Routine documented in this encounter Care Teams Java Golden Gate Developer Relationship Specialty Start Date End Date Alphonso Murphy MD PCP - General Family Medicine 02/19/[address] [place] [address] documented as of this encounter
--- OUTSIDE RECORDS SUMMARY | 2022-05-03 09:09 | XMS_ITS | Encounter Summary ---
:1955 Author Organization [facility] [place] [address] Care Team Providers Name Role Phone Alphonso Murphy MD Primary Care Provider [phone] Reason for Visit Auth/Cert Specialty Diagnoses [...] Expiration Date Visits Requ ested Visits Authorized [id number] 1 1 Encounter Details Date Type Department Care Team Description 03/03/2021 - Hospital Encounter 3 Lisa Tariq MD 03/04/2021 [facility] DR Davey GENERAL SURGERY [place] [phone] Social History Tobacco Use Types Packs/Day Years [...] REMOVE Please contact the Blood Bank at [phone] for questions. ??? Iodine And Iodide Containing Products rash ??? Oxycodone Rash ??? Morphine Rash Other reaction(s): PRURITIS Scheduled Appointments: Future Appointments Date Time Provider Department Center 03/19/2021 5:15 PM Lisa Singh MD [facility] SURG [facility] 07/28/2021 10:30 AM Mike Robles MD [facility] PULM [facility] Outpatient Services/Studies: No discharge procedures on file. [...] after thyroid surgery. Take NSAIDS and/or Tylenol [id number] for the first 3-5 days following surgeryto [...] will be mailed to you Please call [phone] to confirm the date and time of your appointment if you do not hear from usin the next 2 weeks Call Doctor for: Call if you have trouble talking or breathing (call [phone] if this is severe) Call if you [...] as noted above. Phone number for questions: [phone] before 5 PM on weekdays [phone] after 5 PM and on weekends/holidays. Ask for the general surgery resident field supervisor seed production. General Instructions None Follow-up Recommendations for Providers: [...] after thyroid surgery. Take NSAIDS and/or Tylenol [id number] for the first 3-5 days following surgeryto [...] will be mailed to you Please call [phone] to confirm the date and time of [...] as noted above. Phone number for questions: [phone] before 5 PM on weekdays [phone] after 5 PM and on weekends/holidays. Ask for the general surgery resident field supervisor seed production. documented in this encounter Medications at Time [...] 06/2019 (FLONASE) 50 route daily as mcg/actuation [place], needed. 04/06 Patient Suspension states that she [...] Continue post operative plan per primary team Rdoy Hackett MD 03/03/2021 Jessica Ghosh RN - [...] nodules with compressive symptoms who presents to [facility] for planned total thyroidectomy. S: Radha Masterson [...] Operative Note Patient Name: Radha Masterson : [id number] MR#: [id number] Case Date: 03/03/2021 Surgeon: Surgeon(s) and Role: [...] OPERATIVE NOTE PATIENT NAME: Radha Masterson : [id number] MR#: [id number] DATE OF SURGERY: 03/03/2021 SURGEON: Surgeon(s) and [...] google or use a book such as Floqq (available on [employer]) OR [employer] (if you're using a package, it [...] Signature POC Glucose 111 65 - 199 [facility] mg/dL [facility] Comment: Supplemental ranges: <140 mg/dL before meals <180 mg/dL all other times of the day Specimen Anatomical Collection Method Collection Time Receive d Time (Source) Location / / Volume Laterality Blood 03/04/2021 8:26 AM 1 8:26 EDT AM EDT Lisa Singh MD POINT OF CARE TEST ORDERABLE S Performing Organization Address City/State/[place] [address] POCT Glucose (03/04/2021 3:46 AM EDT) P athologist Signature POC Glucose 126 65 - 199 [place] mg/dL [facility] Comment: Supplemental ranges: <140 mg/dL before meals <180 mg/dL all other times of the day Specimen Anatomical Collection Method Collection Time Receive d Time (Source) Location / / Volume Laterality Blood 03/04/2021 3:46 AM 1 3:46 EDT AM EDT Lisa Singh MD POINT OF CARE TEST ORDERABLE S Performing Organization Address City/State/[place] [address] (ABNORMAL) Calcium (03/04/2021 3:37 AM EDT) athologist Signature Calcium 7.6 (L) 8.5 - 10.5 [facility] [place] mg/dL [facility] Specimen Anatomical Collection Method Collection Time Receive d Time (Source) Location / / Volume Laterality Blood 03/04/2021 3:37 AM 1 4:04 EDT AM EDT Resulting Agency Comment Spec In Lab Lisa Singh MD CHEMISTRY ORDERABLES Performing Organization Address City/State/[place] [address] POCT Glucose (03/03/2021 11:59 PM EDT) athologist Signature POC Glucose 147 65 - 199 [place] mg/dL [facility] Comment: Supplemental ranges: <140 mg/dL before meals <180 mg/dL all other times of the day Specimen Anatomical Collection Method Collection Time Receive d Time (Source) Location / / Volume Laterality Blood 03/03/2021 11:59 03/03/2021 PM EDT 11:59 PM EDT Lisa Singh MD POINT OF CARE TEST ORDERABLE S Performing Organization Address City/State/[place] [address] POCT Glucose (03/03/2021 8:02 PM EDT) athologist Signature POC Glucose 137 65 - 199 [place] mg/dL [facility] Comment: Supplemental ranges: <140 mg/dL before meals <180 mg/dL all other times of the day Specimen Anatomical Collection Method Collection Time Receive d Time (Source) Location / / Volume Laterality Blood 03/03/2021 8:02 PM 8:02 EDT PM EDT Lisa Singh MD POINT OF CARE TEST ORDERABLE S Performing Organization Address City/[facility]/ZIP [place] [address] POCT Glucose (03/03/2021 3:59 PM EDT) athologist Signature POC Glucose 120 65 - 199 [place] mg/dL [facility] Comment: Supplemental ranges: <140 mg/dL before meals <180 mg/dL all other times of the day Specimen Anatomical Collection Method Collection Time Receive d Time (Source) Location / / Volume Laterality Blood 03/03/2021 3:59 PM 3:59 EDT PM EDT Lisa Singh MD POINT OF CARE TEST ORDERABLE S Performing Organization Address City/State/[place] [address] (ABNORMAL) PTH (03/03/2021 12:46 PM EDT) athologist Signature PTH 8 (L) 15 - 65 [place] pg/mL [facility] Specimen Anatomical Collection Method Collection Time Receive d Time (Source) Location / / Volume Laterality Blood 03/03/2021 12:46 03/03/2021 1:04 PM EDT PM EDT Resulting Agency Comment Spec In Lab Lisa Singh MD CHEMISTRY ORDERABLES Performing Organization Address City/State/ZIP Code Phon e Number [address] POCT Glucose (03/03/2021 12:37 PM EDT) P athologist Signature POC Glucose 116 65 - 199 [facility] mg/dL [facility] Comment: Supplemental ranges: <140 mg/dL before meals <180 mg/dL all other times of the day Specimen Anatomical Collection Method Collection Time Receive d Time (Source) Location / / Volume Laterality Blood 03/03/2021 12:37 03/03/2021 PM EDT 12:37 PM EDT Lisa Singh MD POINT OF CARE TEST ORDERABLE S Performing Organization Address City/State/[place] [address] Specimen to Pathology (03/03/2021 [...] Address City/State/[place] [address] Specimen to Pathology (03/03/2021 [...] Address City/State/[place] [address] Surgical Pathology Report (03/03/2021 9:55 AM EDT) Component Value Ref Test Analysis Performed At [facility] Range Method Time Signature Surgical [id number] ? Location: [facility]; [facility]; A [facility] Pathology CARRIZOZO Report The signing pathologist has (i) examined [...] Scherer Verified: ??03/06/2021 11:03 ??Pathologist Performed at: ??-[facility] Dept. of Pathology, [place], [place] SPECIMEN(S) SUBMITTED A - Right thyroid [...] black. The isthmic margin is inked blue. Drum Tender sections in 8 cassettes as follows: ?A1-A8: ??Drum Tender sections submitted superior to inferior B - [...] black. The isthmic margin is inked blue. Drum Tender sections in 8 cassettes as follows: ?B1-B8: ??Drum Tender sections submitted superior to inferior. ??BAA SNS Specimen (Source) Anatomical Collection Method Collection Time Re ceived Time Location / / Volume Laterality 03/03/2021 9:55 AM EDT Lisa Singh MD PATHOLOGY/CYTOLOGY ORDERABLE S Performing Organization Address City/State/[place] [address] (ABNORMAL) BLOOD GAS 2 ARTERIAL (03/03/2021 8:34 AM EDT) Analysis Performed At Patho logist Time Signature pH Art 7.39 7.35 - [facility] 7.45 [facility] pCO2 Art 44 35 - 45 [facility] mmHg [facility] pO2 Art 88 85 - 104 [facility] LABORATORY HCO3 Art 26.3 (H) 20.0 - [facility] 26.0 [facility] mmol/L [facility] BE Art 1.4 -3.0 - 3.0 [facility] mmol/L [facility] Hgb Blood Gas 13.4 11.7 - [facility] 15.5 gm/dL [facility] O2HB Art 95.4 94.0 - [facility] 97.0 % [facility] COHB Art 0.9 % [facility] Comment: Nonsmokers: 0.5-1.5% COHB Smokers: Variable, but usually less than 10% Toxic: 20-30% COHB Lethal: Greater than 60% COHB METHB Art 0.3 <=1.5 % [facility] Na Whole Blood 136 135 - 145 mmol/L [facility] K Whole Blood 4.1 3.5 - 5.0 mmol/L [facility] Comment: Please note: Patients with WBC >100,000 may have falsely elevated Potassium levels. Contact the Clinical Chemistry L aboratory if there are any questions. ICa Whole Blood 1.12 (L) 1.15 - 1.33 mmol/L [facility] Comment: Note: ??Total bilirubin higher than 20 m g/dL may lead to falsely low ionized calcium. CL Whole Blood 106 98 - 107 mmol/L [facility] Gluc Whole Bld 110 65 - 199 mg/dL [facility] Comment: Diabetes: >=200 mg/dL plus symp toms. Lactate WB 1.6 0.5 - 2.2 mmol/L [facility] Specimen Anatomical Collection Method Collection Time Receive d Time (Source) Location / / Volume Laterality Blood 03/03/2021 8:34 AM 8:34 EDT AM EDT Lisa Singh MD CHEMISTRY ORDERABLES Performing Organization Address City/State/Z[place] [address] POCT Glucose (03/03/2021 7:27 AM EDT) P athologist Signature POC Glucose 103 65 - 199 [facility] mg/dL [facility] Comment: Supplemental ranges: <140 mg/dL before meals <180 mg/dL all other times of the day Specimen Anatomical Collection Method Collection Time Receive d Time (Source) Location / / Volume Laterality Blood 03/03/2021 7:27 AM 7:27 EDT AM EDT Lisa Singh MD POINT OF CARE TEST ORDERABLE S Performing Organization Address City/State/[place] [address] documented in this encounter [...] Provider: Nathan Barr DO) 3 g, Intravenous, SKIMMER SCOOP OPERATOR TO O.R., 1 dos e, On Tue03/03/21 [...] or Regular (not diet) soda OR If SOUND EFFECTS SUPERVISOR O, give 15 gram glucose 40% oral [...] Unit) documented in this encounter Care Teams Driver Education Instructor Relationship Specialty Start Date End Date Alphonso Murphy MD PCP - General Family Medicine 02/19/[address] [place] [address] [address] [facility] [address] [place] [address] documented as of this encounter
--- OUTSIDE RECORDS SUMMARY | 2022-05-03 09:09 | XMS_ITS | Encounter Summary ---
:1955 Author Organization [facility] [place] [address] Care Team Providers Name Role Phone Alphonso Murphy MD Primary Care Provider [phone] Encounter Details Date Type Department Care Team Description 09/17/2020 Orders Only Pulmonology at [facility] Nakul Banegas Goiter (Primary Dx) [facility] [place] [address] [address] [phone] PULMONARY MEDICI [place], [place] [address] (Wo rk) Social History Tobacco [...] book such as Calorie Adalberto (available on Present) OR [employer] (if you're using a package, it [...] / FVC LLN 67 % COMPAS PFT TLT16-95 Actual 0.66 L/s COMPAS PFT Pre-BD RNA97-54 Pre-BD 33 % COMPAS PFT % of Predicted YMZ51-22 1.98 L/s COMPAS PFT Predicted NGI29-91 Pre-BD -2.33 COMPAS PFT Z-Score DLCO Hb [...] unspecified documented in this encounter Care Teams Gas Plant Technician Relationship Specialty Start Date End Date Alphonso Murphy MD PCP - General Family Medicine 02/19/[address] [place] [address] documented as of this encounter
--- OUTSIDE RECORDS SUMMARY | 2022-05-03 09:09 | XMS_ITS | Encounter Summary ---
:1955 Author Organization [facility] [place] [address] Care Team Providers Name Role Phone Alphonso Murphy MD Primary Care Provider [phone] Encounter Details Date Type Department Care Team Description 02/25/2021 Notes Only Same Day at [facility] [place] [address] Social History Tobacco Use Types Packs/Day [...] google or use a book such as [employer] (available on [employer]) OR [employer] (if you're using a package, it will have calorie and protein info on the back) - The other thing to write down would be grams of protein - 1500 is a good starting point for a ca jeffrey goal documented as of this encounter Visit Diagnoses Not on filedocumented in this encounter Care Teams Mica Splitter Relationship Specialty Start Date End Date Alphonso Murphy MD PCP - General Family Medicine 02/19/[address] [place] [address] documented as of this encounter
--- OUTSIDE RECORDS SUMMARY | 2022-05-03 09:09 | XMS_ITS | Encounter Summary ---
:1955 Author Organization [facility] [place] [address] Care Team Providers Name Role Phone Alphonso Murphy MD Primary Care Provider [phone] Reason for Referral Consultation (Urgent) - Duplicate Referral Specialty Diagnoses / Procedures Referred By Contact Refer red To Contact Cardiology Diagnoses Chronic heart failure with preserved ejection fraction Lisa Singh MD [facility] 4a [facility] D R [facility] [place] [address] [place] [address] Referral ID Status Reason Start Expiration Visits Visits Date Date Requested Authorized [id number] Duplicate Consult, 12/16/2020 12/16/2021 1 1 Referral Test & Treat Encounter Details Date Type Department Care Team Description 12/16/2020 Orders Only General Surgery at Lisa Singh MD Chronic heart failure [facility] [place] with preserved [facility] DR ejection fraction [facility] GENERAL SURGERY (Primary Dx) [place] [address] [place] [address] [phone] Social History Tobacco Use Types Packs/Day Years [...] google or use a book such as [employer] (available on Evaporcool) OR [employer] (if you're using a package, it will have calorie and protein info on the back) - The other thing to write down would be grams of protein - 1500 is a good starting point for a ca jeffrey goal documented as of this encounter Visit Diagnoses Diagnosis Chronic heart failure with preserved eje ction fraction - Primary documented in this encounter Care Teams Pin Drafter Operator Relationship Specialty Start Date End Date Alphonso Murphy MD PCP - General Family Medicine 02/19/[address] [place] [address] [address] [place] [address] documented as of this encounter
--- OUTSIDE RECORDS SUMMARY | 2022-05-03 09:09 | XMS_ITS | Encounter Summary ---
:1955 Author Organization [facility] [place] [address] Care Team Providers Name Role Phone Alphonso Murphy MD Primary Care Provider [phone] Encounter Details Date Type Department Care Team Description 11/06/2020 Hospital Encounter [place] [address] Social History Tobacco Use Types Packs/Day [...] 06/2019 (FLONASE) 50 route daily as mcg/actuation [place], needed. 04/06 Patient Suspension states that she [...] google or use a book such as [employer] (available on QuickMobile) OR expresscoin (if you're using a package, it will [...] / FVC LLN 67 % COMPAS PFT TDW24-58 Actual 0.66 L/s COMPAS PFT Pre-BD NIC86-75 Pre-BD 33 % COMPAS PFT % of Predicted SUI78-55 1.98 L/s COMPAS PFT Predicted QJC77-85 Pre-BD -2.33 COMPAS PFT Z-Score DLCO Hb [...] unspecified documented in this encounter Care Teams Interior Block Wirer Relationship Specialty Start Date End Date Alphonso Murphy MD PCP - General Family Medicine 02/19/[address] [place] [address] documented as of this encounter
--- OUTSIDE RECORDS SUMMARY | 2022-05-03 09:09 | XMS_ITS | Encounter Summary ---
:1955 Author Organization [facility] [place] [address] Care Team Providers Name Role Phone Alphonso Murphy MD Primary Care Provider Reason for Visit Reason Comments Follow-up R wrist continued pain Encounter Details Date Type Department Care Team Description 06/24/2020 Office Visit [place]opaedics at [facility] Maddy, Neuritis of right ulnar nerv e; [facility] Osmin Velasquez Jr., MD Carpal tunnel [place] [address] CENTER [phone] ORTHOPAEDIC SURGERY [place], [place] [address] Social History Tobacco Use Types [...] - 06/24/2020 3:40 PM EST Radha Masterson [id number] HISTORY OF PRESENT ILLNESS: Here for ongoing [...] Osmin Castañeda Jr, MD Department of Orthopaedics [facility] documented in this encounter Plan of [...] or use a book such as Calorie [employer] (available on Amcom Software) OR [employer] (if you're using a package, it will [...] syndrome documented in this encounter Care Teams Silk Washing Machine Operator Relationship Specialty Start Date End Date Alphonso Murphy MD PCP - General Family Medicine 02/19/[address] [facility] [address] [place] [address] documented as of this encounter
--- OUTSIDE RECORDS SUMMARY | 2022-05-03 09:09 | XMS_ITS | Encounter Summary ---
:1955 Author Organization [facility] Address [facility] [place] [address] Care Team Providers Name Role Phone Alphonso Murphy MD Primary Care Provider [phone] Reason for Referral Consultation (Urgent) - Closed Specialty Diagnoses / Procedures Referred By Contact Refer red To Contact Sleep Center Diagnoses Class 3 obesity with alveolar hypoventilation, serious comorbidity, and body mass index (BMI) greater than or equal to 70 in adult Supplemental oxygen dependent Mike Robles MD [facility] Sleep Medicine [facility] D R [address] [place] [address] [place] [address] Referral ID Status Reason Start Date Expiration Date Visits V isits Requested Authorized [id number] Closed Consult, 11/06/2020 11/06/2021 1 1 Test & Treat Reason for Visit Consultation (Routine) - Closed Specialty Diagnoses / Procedures Referred By Contact Refer tk To Contact Pulmonology Diagnoses Multinodular goiter Lisa Singh MD [facility] Pulmonology 5c [facility] D R [facility] [place] [address] [place] [address] Referral ID Status Reason Start Date Expiration Date Visits V isits Requested Authorized [id number] Closed Consult, 09/02/2020 09/02/2021 1 1 Test & Treat Encounter Details Date Type Department Care Team Description 11/06/2020 Office Visit Pulmonology at [facility] Travis, Class 3 obesity with alveola r hypoventilation, serious comorbidity, and body mass index (BMI) greater than or equal to 70 in adult; [facility] Mike Nelson MD Supplemental oxygen dependent; Drive [employer] Former smoker; [place], [place] CENTER 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 ypoventilation disorder; [id number] PULMONARY Multinodular goiter; [phone] MEDICINE Dysphagia, unspecified type; [place], [place] Chronic respira tory failure with hypoxia and hypercapnia [address] Social History Tobacco Use Types Packs/Day Years [...] visit. You can reach me by phone ([phone]) or by sending a [employer] message. Mike Coughlin. MD [place] documented in this encounter Progress Notes Mike Robles MD - 11/06/2020 10:00 AM EDT Images from the original note were not included. [facility] Section of Pulmonary and Critical Care Medicine Outpatient Consultation - Initial Visit Date of Encounter: 11/06/2020 Referring Provider: Lisa Singh MD [facility] [place] [address] PCP: Alphonso Murphy MD Reason for Evaluation: Increased need for supplemental oxygen and pre-operative risk assessment This was a pwnx-cb-true office visit. History of Present Illness: Radha [...] previously was seen in Pulmonary Clinic at [facility] more than 5 years ago. PFTs at [...] perhaps when she has had PNA. TTE [id number] was a limited study but showed mild [...] 0 ??? fluticasone propionate (FLONASE) 50 mcg/actuation [place], Suspension, SHAKE LQ AND U 1 SPR [...] my note above. Mike Robles MD [facility] Filer And Sanderassembly repairer Pulmonary and Critical Care Medicine [place] [id number] [email or web address] documented in this encounter Plan of [...] google or use a book such as [employer] (available on Withings) OR [employer] (if you're using a package, it will [...] 11/06/2020 3:29 PM Resul ts for this (ON LICENSE OF [facility]) EDT procedure are i n the results [...] athologist Signature pH Danie 7.35 7.32 - [facility] 7.42 [facility] pCO2 Danie 54 (H) 41 - 51 [facility] pO2 Danie 29 25 - 40 [facility] HCO3 Danie 29.1 mmol/L [facility] BE Danie 3.4 mmol/L [facility] Hgb Blood Gas 14.8 11.7 - [facility] 15.5 gm/dL [facility] Comment: Interpret with caution, 1 [...] Whole Blood 141 135 - 145 mmol/L [facility] K Whole Blood 3.9 3.5 - 5.0 mmol/L [facility] Comment: Please note: Patients with WBC >100,000 may have falsely elevated Potassium levels. Contact the Clinical Chemistry L aboratory if there are any questions. ICa Whole Blood 1.19 1.15 - 1.33 mmol/L [facility] Comment: Note: ??Total bilirubin higher than 20 m g/dL may lead to falsely low ionized calcium. CL Whole Blood 103 98 - 107 mmol/L [facility] Gluc Whole Bld 93 65 - 199 mg/dL [facility] Comment: Diabetes: >=200 mg/dL plus symp toms Lactate WB 1.4 0.5 - 2.2 mmol/L [facility] BGas Source Venous [facility] Specimen Anatomical Collection Method Collection Time Receive d Time (Source) Location / / Volume Laterality Blood specimen Venous Draw / 11/06/2020 3:29 PM 2020 3:33 (specimen) Unknown EDT PM EDT Resulting Agency Comment Spec In Lab Mike Robles MD CHEMISTRY ORDERABLES Performing Organization Address City/State/[place] [address] Differential, Automated (11/06/2020 12:20 PM EDT) P athologist Signature Neutrophils % 60.9 % [facility] Neutr Abs (ANC) 4.08 1.70 - [facility] 6.10 [facility] x10(3)/[facility] LABORATORY Lymphocytes % 25.6 % [facility] Lymphocytes Abs 1.7 0.9 - 3.2 [facility] x10(3)/[facility] LABORATORY Monocytes % 7.7 % [facility] Monocyte Abs 0.5 0.3 - 0.9 [facility] x10(3)/[facility] LABORATORY Eosinophils % 5.1 % [facility] Eosinophils Abs 0.3 0.0 - 0.4 [facility] x10(3)/[facility] LABORATORY Basophils % 0.4 % [facility] Basophils Abs 0.0 0.0 - 0.1 [facility] x10(3)/[facility] LABORATORY Immature Gran % 0.30 % [facility] Comment: Immature granulocytes(IG's)percentage an d absolute count will include metamyelocytes, myelocytes, and promyelo cytes. Blood smears from CBCs yielding IG's will be scanned manually for concor dance. If this scan disagrees with the automated IG or if promyelocytes are not ed, a manual differential will be performed. Surekha Gran Abs 0.02 0.00 - 0.04 x10(3)/[facility] Y [facility]OR[facility] Specimen Anatomical Collection Method Collection Time Receive d Time (Source) Location / / Volume Laterality Blood specimen 11/06/2020 12:20 1 (specimen) PM EDT 12:25 PM EDT Resulting Agency Comment Spec In Lab Mike Robles MD HEMATOLOGY ORDERABLES Performing Organization Address City/State/[place] [address] Hemogram (11/06/2020 12:20 PM EDT) athologist Signature WBC 6.7 4.0 - 9.5 [place] x10(3)/[facility] LABORATORY RBC 4.68 4.00 - [place] 5.21 [facility] x10(6)/[facility] LABORATORY Hemoglobin 13.8 11.7 - [place] 15.5 gm/dL [facility] Hematocrit 41.5 35.7 - [place] 45.8 % [facility] MCV 88.7 82.6 - [facility] JAY 94.4 [facility] LABORATORY MCH 29.5 27.1 - [employer] [facility] 32.0 pg [facility] MCHC 33.3 31.7 - [place] 35.0 gm/dL [facility] Platelets 238 145 - 357 [facility] x10(3)/[facility] LABORATORY RDWSD 44.4 37.0 - [place] 46.0 [facility] LABORATORY RDWCV 13.6 11.5 - [place] 14.1 % [facility] MPV 11.1 7.6 - 12.9 [place] [facility]ORY nRBC % Auto 0.0 % [facility] nRBC Abs Auto 0.000 0.000 - [place] 0.000 [facility] x10(3)/[facility] LABORATORY Specimen Anatomical Collection Method Collection Time Receive d Time (Source) Location / / Volume Laterality Blood specimen 11/06/2020 12:20 1 (specimen) PM EDT 12:25 PM EDT Resulting Agency Comment Spec In Lab Mike Robles MD HEMATOLOGY ORDERABLES Performing Organization Address City/State/[place] [address] (ABNORMAL) Basic Metabolic Panel (non-fasting) (11/06/2020 12:20 PM EDT) athologist Signature Glucose Lvl 95 65 - 199 [facility] mg/dL [facility] Comment: Diabetes: >=200 mg/dL plus symp toms BUN 17 8 - 18 mg/dL [facility] Creatinine 0.56 (L) 0.70 - 1.20 mg/dL [facility] Sodium 140 135 - 145 mmol/L [facility] Potassium 4.1 3.5 - 5.0 mmol/L [facility] Comment: Please note: ??Patients with WBC >100,00 0 may have falsely elevated Potassium levels. ??For accurate Potassium quantif ication in these patients send serum separator tube (gold top) for subsequent determinations. ??Contact the Clinical Chemistry Laboratory if there are any qu estions. Chloride 105 98 - 107 mmol/L [facility] CO2 28 22 - 31 mmol/L [facility] Anion Gap 7 5 - 15 mmol/L [facility] Calcium 8.6 8.5 - 10.5 mg/dL [facility] Estimated GFR 99 >=60 mL/min/1.73 m?? [facility] Comment: This patient? s estimated [...] Organization Address City/State/[place] [address] documented in this encounter [...] hypercapnia documented in this encounter Care Teams Supervisor Winding Department Relationship Specialty Start Date End Date Alphonso Murphy MD PCP - General Family Medicine 02/19/[address] [place] [address] documented as of this encounter
--- OUTSIDE RECORDS SUMMARY | 2022-05-03 09:09 | XMS_ITS | Encounter Summary ---
:1955 Author Organization [facility] [place] [address] Care Team Providers Name Role Phone Alphonso Murphy MD Primary Care Provider [phone] Encounter Details Date Type Department Care Team Description 12/09/2020 TH Visit (TeleHealth) [place] [address] Social History Tobacco Use Types Packs/Day [...] google or use a book such as aWhere (available on Baboo) OR [employer] (if you're using a package, it will have calorie and protein info on the back) - The other thing to write down would be grams of protein - 1500 is a good starting point for a ca jeffrey goal documented as of this encounter Visit Diagnoses Not on filedocumented in this encounter Care Teams Retail Sales Merchandiser Relationship Specialty Start Date End Date Alphonso Murphy MD PCP - General Family Medicine 02/19/[address] [place] [address] documented as of this encounter
--- OUTSIDE RECORDS SUMMARY | 2022-05-03 09:09 | XMS_ITS | Encounter Summary ---
:1955 Author Organization [facility] [place] [address] Care Team Providers Name Role Phone Alphonso Murphy MD Primary Care Provider [phone] Reason for Referral Diagnostic Test (Routine) - Closed Specialty Diagnoses / Procedures Referred By Contact Refer red To Contact Radiology Diagnoses Multinodular goiter Lisa Singh MD [facility] Rad Ct Scan Procedures CT Neck Soft Tissue w Contrast (Generic) CT Neck Soft Tissue wwo Contrast [facility] [place] [address] [place] [address] Referral ID Status Reason Start Date Expiration Date Visits V isits Requested Authorized [id number] Closed Specialty 08/29/2020 02/26/2022 1 1 Service Requested Reason for Visit Diagnostic Test (Routine) - Closed Specialty Diagnoses / Procedures Referred By Contact Refer red To Contact Radiology Diagnoses Multinodular goiter Lisa Singh MD [facility] Rad Ct Scan Procedures CT Neck Soft Tissue w Contrast (Generic) CT Neck Soft Tissue wwo Contrast [facility] DR [facility] [place] [address] [place] [address] Referral ID Status Reason Start Date Expiration Date Visits V isits Requested Authorized [id number] Closed Specialty 08/29/2020 02/26/2022 1 1 Service Requested Encounter Details Date Type Department Care Team Description 09/09/[address] Scan at [facility] Lisa Singh, Multinodular goiter [facility] MD [facility] [address] GENERAL SURGERY [phone] [place] [address] Social History Tobacco Use Types [...] 06/2019 (FLONASE) 50 route daily as mcg/actuation [place], needed. 04/06 Patient Suspension states that she [...] were not included. Infiltration/Extravasation Scale Radha Masterson [id number] Room/bed info not found Infiltration appearance: Infiltration [...] 9:09 AM Name of RN [facility] and had VAS paged to come treat the extravasation. 9:09 AM Name of Pharmacist if consulted NA 9:09 AM Plastics Provider contacted: no 9:09 AM Name of Plastics MD (if consulted) (Mandatory photo for infiltrations/ extravasations scoring a stage 2 or greater, but recommended forstage 1. Include measuring tape and identifier in the photo) FELLMONGERY WORKER CARING FOR THIS PATIENT WILL CONTINUE TO [...] google or use a book such as [employer] (available on Primeloop) OR [employer] (if you're using a package, it will [...] 350.00 mg/ml. COMPARISON: Thyroid ultrasound from outside [facility] 07/17/2020 FINDINGS: The images are degraded by [...] mg/ml. COMPARISON: Thyroid ultrasound from outside [facility] 07/17/2020 FINDINGS: The images are degraded by [...] Routine documented in this encounter Care Teams Dry Sand Molder Relationship Specialty Start Date End Date Alphonso Murphy MD PCP - General Family Medicine 02/19/[address] [place] [address] [address] [place] [address] documented as of this encounter
--- OUTSIDE RECORDS SUMMARY | 2022-05-03 09:09 | XMS_ITS | Encounter Summary ---
:1955 Author Organization [facility] [place] [address] Care Team Providers Name Role Phone Alphonso Murphy MD Primary Care Provider [phone] Encounter Details Date Type Department Care Team Description 06/24/2020 Orders Only Orthopaedics at [facility] Maddy, Carpal tunnel [facility] Osmin Velasquez Jr., [place] [address] [address] [phone] ORTHOPAEDIC SURGERY [place], [place] [address] Social History Tobacco Use Types [...] book such as Calorie Adalberto (available on Appointedd) OR [employer] (if you're using a package, it will have calorie and protein info on the back) - The other thing to write down would be grams of protein - 1500 is a good starting point for a ca jeffrey goal documented as of this encounter Visit Diagnoses Diagnosis Carpal tunnel syndrome on right Carpal tunnel syndrome documented in this encounter Care Teams Medical Equipment Sales Relationship Specialty Start Date End Date Alphonso Murphy MD PCP - General Family Medicine 02/19/[address] [place] [address] [address] [place] [address] documented as of this encounter
--- OUTSIDE RECORDS SUMMARY | 2022-05-03 09:09 | XMS_ITS | Encounter Summary ---
:1955 Author Organization [facility] Address [place] [address] Care Team Providers Name Role Phone Alphonso Murphy MD Primary Care Provider [phone] Reason for Visit Reason Onset Date Comments Appointment 11/05/2020 Other 11/05/2020 Increased oxygen dem and Encounter Details Date Type Department Care Team Description 11/05/2020 Telephone Pulmonology at [facility] [place] Ruben, Appointment; Other [address] Ron Sommers ([place] [address] S, RN demand) [phone] Social History Tobacco Use Types Packs/Day Years [...] Patient to be scheduled for PFTs with pizzamaker and RN for 6 minute walk test [...] google or use a book such as [employer] (available on Tumotorizado.com) OR [employer] (if you're using a package, it will have calorie and protein info on the back) - The other thing to write down would be grams of protein - 1500 is a good starting point for a ca jeffrey goal documented as of this encounter Visit Diagnoses Not on filedocumented in this encounter Care Teams Process Tech Relationship Specialty Start Date End Date Alphonso Murphy MD PCP - General Family Medicine 02/19/[address] [place] [address] documented as of this encounter
--- OUTSIDE RECORDS SUMMARY | 2022-05-03 09:09 | XMS_ITS | Encounter Summary ---
:1955 Author Organization [facility] Address [address] [place] [address] Care Team Providers Name Role Phone Alphonso [...] MD D'Anna, Susan P, DEISY [facility] D [facility] ANESTHESIOLOGY DEPT [place] [address] [place] [address] Fax: Referral ID Status Reason Start Date Expiration Date Visits V isits Requested Authorized [id number] Closed Consult, 12/09/2020 12/09/2021 1 1 Test & Treat Encounter Details Date Type Department Care Team Description 12/09/2020 Orders Only Anesthesiology Morales Griffith, Pulmonary hypertension [facility] [place] [address] ANESTHESIOLOGY [phone] DEPT [place], [place] [address] Social History Tobacco Use Types [...] google or use a book such as Catacel (available on Quincy Apparel) OR L[employer] (if you're using a package, it will have calorie and protein info on the back) - The other thing to write down would be grams of protein - 1500 is a good starting point for a ca jeffrey goal documented as of this encounter Visit Diagnoses Diagnosis Pulmonary hypertension Other chronic pulmonary heart diseases documented in this encounter Care Teams Property Utilization Officer Relationship Specialty Start Date End Date Alphonso Murphy MD PCP - General Family Medicine 02/19/[address] [place] [address] documented as of this encounter
--- OUTSIDE RECORDS SUMMARY | 2022-05-03 09:09 | XMS_ITS | Encounter Summary ---
:1955 Author Organization [facility] [place] [address] Care Team Providers Name Role Phone Alphonso Murphy MD Primary Care Provider [phone] Reason for Visit Reason Onset Date Comments Other 11/04/2020 Encounter Details Date Type Department Care Team Description 11/04/2020 Telephone Endocrinology at [facility] [place] [address] Social History Tobacco Use Types Packs/Day [...] google or use a book such as [employer] (available on Blue Ocean Software) OR [employer] (if you're using a package, it will have calorie and protein info on the back) - The other thing to write down would be grams of protein - 1500 is a good starting point for a ca jeffrey goal documented as of this encounter Visit Diagnoses Not on filedocumented in this encounter Care Teams Auxiliary Power Equipment Operator Relationship Specialty Start Date End Date Alphonso Murphy MD PCP - General Family Medicine 02/19/16 [address] [place] [address] documented as of this encounter
--- OUTSIDE RECORDS SUMMARY | 2022-05-03 09:09 | XMS_ITS | Encounter Summary ---
:1955 Author Organization [facility] [place] [address] Care Team Providers Name Role Phone Alphonso Murphy MD Primary Care Provider [phone] Encounter Details Date Type Department Care Team Description 07/17/2020 Ancillary Procedure Radiology Library at Josué Murphy [facility] [address] [id number] [phone] Social History Tobacco Use Types Packs/Day Years [...] book such as Calorie Adalberto (available on m2fx) OR [employer] (if you're using a package, it [...] is for storage only. Alphonso Murphy MD [facility] FILM LIBRARY ORDERABLES Performing Organization Address City/State/ZIP Code Phon e Number [place], [place] documented in this encounter Visit Diagnoses Not on filedocumented in this encounter Care Teams Web Producer Relationship Specialty Start Date End Date Alphonso Murphy MD PCP - General Family Medicine 02/19/[address] [place] [address] documented as of this encounter
--- OUTSIDE RECORDS SUMMARY | 2022-05-03 09:09 | XMS_ITS | Encounter Summary ---
:1955 Author Organization [facility] [place] [address] Care Team Providers Name Role Phone Alphonso Murphy MD Primary Care Provider [phone] Reason for Visit Auth/Cert Specialty Diagnoses / Procedures Referred By Contact Refer red To Contact Diagnoses Multinodular goiter MULTINODULAR GOITER Procedures PRO THYROIDECTOMY=SUBSTERNAL, TRANSCERV PRG EMG, LARYNX PRG US GUIDE INTRAOP THYROIDECTOMY, INCL. SUBSTERNAL, CERVICAL APPROACH (WRVU 17.62) FACIAL NERVE MONITORING, SETUP LARYNGEAL (WRVU 1.57) ULTRASONIC GUIDANCE, INTRAOP (WRVU 1.2) Referral ID Status Reason Start Date Expiration Date Visits Requ ested Visits Authorized [id number] 1 1 Encounter Details Date Type Department Care Team Description 03/03/2021 Surgery Main Operating Room Lisa Singh MD THYROIDECTOMY, INCL. [facility] SUBSTERNAL, CERVICAL [facility] DR MONTEIRO (WRVU 17.62) [place] [address] [place] [address] [phone] Social History Tobacco Use Types Packs/Day Years [...] REMOVE Please contact the Blood Bank at [phone] for questions. ??? Iodine And Iodide Containing Products rash ??? Oxycodone Rash ??? Morphine Rash Other reaction(s): PRURITIS Scheduled Appointments: Future Appointments Date Time Provider Department Center 03/19/2021 5:15 PM [address] [facility] 07/28/2021 10:30 AM Mike Robles MD [facility] Outpatient Services/Studies: No discharge procedures on file. [...] after thyroid surgery. Take NSAIDS and/or Tylenol ulcinh-kvv-jryel for the first 3-5 days following surgeryto [...] will be mailed to you Please call [phone] to confirm the date and time of [...] as noted above. Phone number for questions: [phone] before 5 PM on weekdays [phone] after 5 PM and on weekends/holidays. Ask for the general surgery resident stationary fireman. General Instructions None Follow-up Recommendations for Providers: [...] after thyroid surgery. Take NSAIDS and/or Tylenol jqbouk-vwh-thwda for the first 3-5 days following surgeryto [...] will be mailed to you Please call [phone] to confirm the date and time of your appointment if you do not hear from usin the next 2 weeks Call Doctor for: Call if you have trouble talking or breathing (call [phone] if this is severe) Call if you [...] as noted above. Phone number for questions: [phone] before 5 PM on weekdays [phone] after 5 PM and on weekends/holidays. Ask for the general surgery resident stationary fireman. documented in this encounter Medications at Time [...] OXYGEN-AIR DELIVERY 2 L. 0 12/24/2014 SYSTEMS [facility] aspirin 325 mg Tablet Take 325 mg [...] 06/2019 (FLONASE) 50 route daily as mcg/actuation [place], needed. 04/06 Patient Suspension states that she [...] applied, alarms set and audible. Neck incision SHRIMP PEELER with steri-strips intact. Ice applied to site. [...] nodules with compressive symptoms who presents to [facility] for planned total thyroidectomy. S: Radha Masterson [...] Operative Note Patient Name: Radha Masterson : [id number] MR#: [id number] Case Date: 03/03/2021 Surgeon: Surgeon(s) and Role: [...] OPERATIVE NOTE PATIENT NAME: Radha Masterson : [id number] MR#: [id number] DATE OF SURGERY: 03/03/2021 SURGEON: Surgeon(s) and [...] google or use a book such as Texere (available on Fluorofinder) OR Caviar (if you're using a package, it will [...] Signature POC Glucose 111 65 - 199 [facility] mg/dL [facility] Comment: Supplemental ranges: <140 mg/dL before meals <180 mg/dL all other times of the day Specimen Anatomical Collection Method Collection Time Receive d Time (Source) Location / / Volume Laterality Blood 03/04/2021 8:26 AM 1 8:26 EDT AM EDT Lisa Singh MD POINT OF CARE TEST ORDERABLE S Performing Organization Address City/State/ZIP Code Phon e Number [address] POCT Glucose (03/04/2021 3:46 AM EDT) athologist Signature POC Glucose 126 65 - 199 [place] mg/dL [facility] Comment: Supplemental ranges: <140 mg/dL before meals <180 mg/dL all other times of the day Specimen Anatomical Collection Method Collection Time Receive d Time (Source) Location / / Volume Laterality Blood 03/04/2021 3:46 AM 1 3:46 EDT AM EDT Lisa Singh MD POINT OF CARE TEST ORDERABLE S Performing Organization Address City/State/[place] [address] (ABNORMAL) Calcium (03/04/2021 3:37 AM EDT) P athologist Signature Calcium 7.6 (L) 8.5 - 10.5 [facility] [place] mg/dL [facility] Specimen Anatomical Collection Method Collection Time Receive d Time (Source) Location / / Volume Laterality Blood 03/04/2021 3:37 AM 1 4:04 EDT AM EDT Resulting Agency Comment Spec In Lab Lisa Singh MD CHEMISTRY ORDERABLES Performing Organization Address City/State/ZIP Code Phon e Number [address] POCT Glucose (03/03/2021 11:59 PM EDT) P athologist Signature POC Glucose 147 65 - 199 [place] mg/dL [facility] Comment: Supplemental ranges: <140 mg/dL before meals <180 mg/dL all other times of the day Specimen Anatomical Collection Method Collection Time Receive d Time (Source) Location / / Volume Laterality Blood 03/03/2021 11:59 03/03/2021 PM EDT 11:59 PM EDT Lisa Singh MD POINT OF CARE TEST ORDERABLE S Performing Organization Address City/State/[place] [address] POCT Glucose (03/03/2021 8:02 PM EDT) athologist Signature POC Glucose 137 65 - 199 [place] mg/dL [facility] Comment: Supplemental ranges: <140 mg/dL before meals <180 mg/dL all other times of the day Specimen Anatomical Collection Method Collection Time Receive d Time (Source) Location / / Volume Laterality Blood 03/03/2021 8:02 PM 1 8:02 EDT PM EDT Lisa Sinhg MD POINT OF CARE TEST ORDERABLE S Performing Organization Address City/State/[place] [address] POCT Glucose (03/03/2021 3:59 PM EDT) athologist Signature POC Glucose 120 65 - 199 [place] mg/dL [facility] Comment: Supplemental ranges: <140 mg/dL before meals <180 mg/dL all other times of the day Specimen Anatomical Collection Method Collection Time Receive d Time (Source) Location / / Volume Laterality Blood 03/03/2021 3:59 PM 1 3:59 EDT PM EDT Lisa Singh MD POINT OF CARE TEST ORDERABLE S Performing Organization Address City/State/[place] [address] (ABNORMAL) PTH (03/03/2021 12:46 PM EDT) athologist Signature PTH 8 (L) 15 - 65 [place] pg/mL [facility] Specimen Anatomical Collection Method Collection Time Receive d Time (Source) Location / / Volume Laterality Blood 03/03/2021 12:46 03/03/2021 1:04 PM EDT PM EDT Resulting Agency Comment Spec In Lab Lisa Singh MD CHEMISTRY ORDERABLES Performing Organization Address City/State/[place] [address] POCT Glucose (03/03/2021 12:37 PM EDT) P athologist Signature POC Glucose 116 65 - 199 [facility] mg/dL [facility] Comment: Supplemental ranges: <140 mg/dL before meals <180 mg/dL all other times of the day Specimen Anatomical Collection Method Collection Time Receive d Time (Source) Location / / Volume Laterality Blood 03/03/2021 12:37 03/03/2021 PM EDT 12:37 PM EDT Lisa Singh MD POINT OF CARE TEST ORDERABLE S Performing Organization Address City/[facility]/[place] [address] Specimen to Pathology (03/03/2021 10:53 AM EDT) Specimen Anatomical Collection Method Collection Time Receive d Time (Source) Location / / Volume Laterality AP Specimen 03/03/2021 10:53 03/03/2021 AM EDT 10:53 AM EDT Narrative [facility] - 03/03/2021 10:53 AM EDT Specimen requisition ordered. ??Separate Pathology report to follow Lisa Singh MD PATHOLOGY/CYTOLOGY ORDERABLE S Performing Organization Address City/[facility]/[place] [address] Specimen to Pathology (03/03/2021 10:00 AM EDT) Specimen Anatomical Collection Method Collection Time Receive d Time (Source) Location / / Volume Laterality AP Specimen 03/03/2021 10:00 03/03/2021 AM EDT 10:00 AM EDT Narrative [facility] OR - 03/03/2021 10:00 AM EDT Specimen requisition ordered. ??Separate Pathology report to follow Lisa Singh MD PATHOLOGY/CYTOLOGY ORDERABLE S Performing Organization Address City/[facility]/ZIP Code Phon e Number [place] [phone] [facility] Surgical Pathology Report (03/03/2021 9:55 AM EDT) Component Value Ref Test Analysis Performed At [facility] Range Method Time Signature Surgical [id number] ? Location: [facility]; [facility]; A [facility] Pathology [place] Report The signing pathologist has (i) examined the relevant preparation(s) for the [facility] specimen(s) and (ii) rendered or confirmed the diagnosis(es) . [facility] . ?Surgic al Pathology DIAGNOSIS A) Right thyroid lobe, excision: - Multiple adenomatous nodules (up to 1.9 cm) B) Left thyroid lobe, excision: - Multiple adenomatous nodules (up to 3.2 cm) Electronically signed by: ?MD Nina, Dennis Scherer Verified: ??03/06/2021 11:03 ??Pathologist Performed at: ??-[facility] Dept. of Pathology, [place], [place] SPECIMEN(S) SUBMITTED A - Right thyroid [...] black. The isthmic margin is inked blue. Metal Cut Off Saw Operator sections in 8 cassettes as follows: ?A1-A8: ??Metal Cut Off Saw Operator sections submitted superior to inferior B - [...] black. The isthmic margin is inked blue. Metal Cut Off Saw Operator sections in 8 cassettes as follows: ?B1-B8: ??Metal Cut Off Saw Operator sections submitted superior to inferior. ??BAA SNS Specimen (Source) Anatomical Collection Method Collection Time Re ceived Time Location / / Volume Laterality 03/03/2021 9:55 AM EDT Lisa Singh MD PATHOLOGY/CYTOLOGY ORDERABLE S Performing Organization Address City/State/[place] [address] (ABNORMAL) BLOOD GAS 2 ARTERIAL (03/03/2021 8:34 AM EDT) Analysis Performed At Patho logist Time Signature pH Art 7.39 7.35 - [facility] 7.45 [facility] pCO2 Art 44 35 - 45 [facility] mmHg [facility] pO2 Art 88 85 - 104 [facility] LABORATORY HCO3 Art 26.3 (H) 20.0 - [facility] 26.[address] [facility] mmol/L [facility] BE Art 1.4 -3.0 - 3.0 [facility] mmol/L [facility] Hgb Blood Gas 13.4 11.7 - [facility] 15.5 gm/dL [facility] O2HB Art 95.4 94.0 - [facility] 97.0 % [facility] COHB Art 0.9 % [facility] Comment: Nonsmokers: 0.5-1.5% COHB Smokers: Variable, but usually less than 10% Toxic: 20-30% COHB Lethal: Greater than 60% COHB METHB Art 0.3 <=1.5 % [facility] Na Whole Blood 136 135 - 145 mmol/L [facility] K Whole Blood 4.1 3.5 - 5.0 mmol/L [facility] Comment: Please note: Patients with WBC >100,000 may have falsely elevated Potassium levels. Contact the Clinical Chemistry L aboratory if there are any questions. ICa Whole Blood 1.12 (L) 1.15 - 1.33 mmol/L [facility] Comment: Note: ??Total bilirubin higher than 20 m g/dL may lead to falsely low ionized calcium. CL Whole Blood 106 98 - 107 mmol/L [facility] Gluc Whole Bld 110 65 - 199 mg/dL [facility] Comment: Diabetes: >=200 mg/dL plus symp toms. Lactate WB 1.6 0.5 - 2.2 mmol/L [facility] Specimen Anatomical Collection Method Collection Time Receive d Time (Source) Location / / Volume Laterality Blood 03/03/2021 8:34 AM 8:34 EDT AM EDT Lisa Singh MD CHEMISTRY ORDERABLES Performing Organization Address City/State/[place] [address] POCT Glucose (03/03/2021 7:27 AM EDT) P athologist Signature POC Glucose 103 65 - 199 [facility] mg/dL [facility] Comment: Supplemental ranges: <140 mg/dL before meals <180 mg/dL all other times of the day Specimen Anatomical Collection Method Collection Time Receive d Time (Source) Location / / Volume Laterality Blood 03/03/2021 7:27 AM 7:27 EDT AM EDT Lisa Singh MD POINT OF CARE TEST ORDERABLE S Performing Organization Address City/[facility]/[place] [address] documented in this encounter [...] Provider: Nathan Barr DO) 3 g, Intravenous, MEDICAL SCRIBE TO O.R., 1 dos e, On Tue03/03/21 [...] or Regular (not diet) soda OR If MACHINING ASSOCIATE O, give 15 gram glucose 40% oral [...] Unit) documented in this encounter Care Teams Emergency Medical Dispatcher Relationship Specialty Start Date End Date Alphonso Murphy MD PCP - General Family Medicine 02/19/[address] [place] [address] documented as of this encounter
--- OUTSIDE RECORDS SUMMARY | 2022-05-03 09:09 | XMS_ITS | Encounter Summary ---
:1955 Author Organization [facility] [place] [address] Care Team Providers Name Role Phone Alphonso Murphy MD Primary Care Provider [phone] Reason for Referral Diagnostic Test (Routine) - Closed Specialty Diagnoses / Procedures Referred By Contact Refer red To Contact Cardiology Diagnoses Pulmonary hypertension Tex Edwards MD [facility] Non-Inv Card Lab Procedures Echocardiogram Transthoracic([facility] or [facility]) [facility] [address] [facility] [place] [address] [place] [address] Fax: Referral ID Status Reason Start Date Expiration Date Visits V isits Requested Authorized [id number] Closed Specialty 01/01/2021 01/01/2022 1 1 Service Requested Reason for Visit Consultation (Urgent) - Closed Specialty Diagnoses / Procedures Referred By Contact Refer red To Contact Cardiology Diagnoses Pulmonary hypertension please re-evaluate (last seen 02/2019) pHTN and HFpEF in patient scheduled for upcoming thyroidectomy 01/05/2021. Patient reports worsening O2 requirement, leg swelling, orthopnea. Last TTE 02/2019. Morales Griffith MD D'Anna, Susan P, DEISY [facility] D R [facility] ANESTHESIOLOGY DEPT [place] [address] [place] [address] Fax: Referral ID Status Reason Start Date Expiration Date Visits V isits Requested Authorized [id number] Closed Consult, 12/09/2020 12/09/2021 1 1 Test & Treat Encounter Details Date Type Department Care Team Description 01/01/2021 Office Visit Cardiology at [facility] Tex Edwards, Pulmonary hypertension; [facility] Chronic heart failure with preserved [place] [address] CARDIOLOGY DEPT. [phone] [place], [place] [address] Social History Tobacco Use Types [...] not included. CARDIOVASCULAR MEDICINE Pulmonary Hypertension Clinic [place] [id number] Subjective Identification Cyn Masterson is a 65 y.o. patient of Alphonso Murphy MD with the following medical problems 1. Obstructive sleep apnea-- initial evaluation in 2012 at [facility] with AHI of 25. on BiPAP. Titration [...] hypertension-- PASP 45-50 in February 2019 at [facility] Present Illness Seen today at request of surgery for preoperative evaluation prior to thyroid surgery. Last seen in PH clinic in 2018. I felt her PH was likely secondary to chronic hypoxic lung disease. Has recently seen Dr. Robles of [facility] and Sleep Medicine. She hopes to get [...] Disp: , Rfl: ??? OXYGEN-AIR DELIVERY SYSTEMS [facility], 2 L., Disp: , Rfl: ??? aspirin [...] 0 ??? fluticasone propionate (FLONASE) 50 mcg/actuation [place], Suspension, SHAKE LQ AND U 1 SPR [...] function 02/2019 LVEF 65% by echo at [facility] Evaluation for DAVID Uses CPAP Right [...] be much more convenient. Tex Edwards MD [facility] Addendum 20 January 2021 Echo done January 06 showed stable PASP of 52 with mild RV dilatation and normal RV function. I think itis reasonable to proceed with thyroid surgery. cc: ?? Alphonso Murphy MD [address] [place] [address] [address] [facility] 1 / [facility] [id number] documented in this encounter Plan of Treatment [...] google or use a book such as FeedMagnet (available on Ankeena Networks) OR RAZ Mobile (if you're using a package, it will [...] ?YOUNG CYN ?(Age): 1955(65y) Med Rec#: ? [id number] ?Sex: ?F ? Site Loc: ? [facility] ?Ht / Wt: ??160(cm)/190.5(k Pt. Loc: ?BSA: ?2.65 Study Date: ?? 01/06/2021 ?Pt. Type: Outpatient Tape: ? Referring: Tex Edwards ([id number]) Reading: Frandy Steiner ([id number]) Police Artist: Aaliyah Conley Diagnosis: *Other secondary pulmonary hypertension [...] Vmax ?1.15 ? m/sec ? MV deceleration ehnc833.87 ? m sec ? MV A-wave Vmax [...] ? Mid-Inferior ?Normal ? Mid-Inferoseptal ?Normal ? [place]-Septal ? Normal ? [place]-Anterior ? Normal ? [place]-Lateral ?Normal ? [place]-Inferior ? Normal ? [place]-Tip ?Normal ? This report has been electronically sign ed by: _ Frandy Steiner MD ? 01/06/2021 14:10:00 Images [facility] and [facility] Cardiac Ultrasound Laboratory Procedure Note Frandy Steiner MD - 01/06/2021Forma tting of this note might be different from the original. Procedure: Transthoracic Echocardiogram Patient: JOHAN CASTANEDA(Age): 1955 (65y) Med Rec#: [id number] Sex: F Site Loc: [facility] Ht / Wt: 160(cm)/190.5(k Pt. Loc: BSA: 2.65 Study Date: 01/06/2021 Pt. Type: Outpati ent Tape: Referring: Tex Edwards ([id number]) Reading: Frandy Steiner ([id number]) Police Artist: Aaliyah Conley Diagnosis: *Other secondary pulmonary hypertension [...] MV E-wave Vmax 1.15 m/sec MV deceleration ptaj846.87 msec MV A-wave Vmax 1.17 m/sec MV [...] Normal Mid-Posterolateral Normal Mid-Inferior Normal Mid-Inferoseptal Normal [place]-Septal Normal [place]-Anterior Normal [place]-Lateral Normal [place]-Inferior Normal [place]-Tip Normal This report has been electronically sign ed by: _ Frandy Steiner MD 01/06/2021 14:10: 00 Images reviewed and interpretation verif ied [facility] Cardiac Ultrasound Laboratory Tex Edwards MD ECHO [...] 474 ms MUSE SYSTEM (Bezet) Calculated P [place] 70 degrees MUSE SYSTEM Calculated R [place] 68 degrees MUSE SYSTEM Calculated T [place] 35 degrees MUSE SYSTEM INTERPRETATION Normal sinus rhythm MUSE SYSTEM Normal ECG When compared with ECG of 21-MAY-2019 15:55, No significant change was found Confirmed by MD CONCHA, MARGARET ([id number]) on 01/02/2021 4:16:24 PM Specimen Anatomical Collection Method Collection Time Receive d Time (Source) Location / / Volume Laterality 01/01/2021 9:10 AM 4:16 EDT PM EDT Tex dEwards MD ECG ORDERABLES Performing Organization Address City/State/ZIP Code Phon e Number MUSE SYSTEM documented in this encounter Visit Diagnoses Diagnosis Pulmonary hypertension Other chronic pulmonary heart diseases Chronic heart failure with preserved eje ction fraction Pulmonary hypertension Other chronic pulmonary heart diseases documented in this encounter Care Teams Parking Meter Collector Relationship Specialty Start Date End Date Alphonso Murphy MD PCP - General Family Medicine 02/19/[address] [place] [address] documented as of this encounter
--- OUTSIDE RECORDS SUMMARY | 2022-05-03 09:09 | XMS_ITS | Encounter Summary ---
:1955 Author Organization [facility] [place] [address] Care Team Providers Name Role Phone Alphonso Murphy MD Primary Care Provider [phone] Encounter Details Date Type Department Care Team Description 12/16/2020 Telephone General Surgery at [facility] Lisa Singh MD [facility] [place] [address] GENERAL SURGERY [phone] [place], [place] [address] (Wo rk) Social History Tobacco [...] me that she hung up on the residential program manager - she stated that when he put [...] or use a book such as Calorie Ancanco (available on Affashion) OR Atmosferiq.LxDATA (if you're using a package, it will have calorie and protein info on the back) - The other thing to write down would be grams of protein - 1500 is a good starting point for a ca jeffrey goal documented as of this encounter Visit Diagnoses Not on filedocumented in this encounter Care Teams Electronics Mechanic Relationship Specialty Start Date End Date Alphonso Murphy MD PCP - General Family Medicine 02/19/[address] [place] [address] documented as of this encounter
--- OUTSIDE RECORDS SUMMARY | 2022-05-03 09:09 | XMS_ITS | Encounter Summary ---
:1955 Author Organization [facility] [place] [address] Care Team Providers Name Role Phone Alphonso Murphy MD Primary Care Provider [phone] Reason for Visit Reason Comments Right Wrist Pain right wrist pain continued, Discuss EMG results from 10/21 Encounter Details Date Type Department Care Team Description 05/27/2020 Office Visit [facility] [place] [facility] Maddy, Neuritis of right ulnar nerv e; [facility] Osmin Velasquez Jr., MD Carpal tunnel [place] [address] CENTER [phone] ORTHOPAEDIC SURGERY [place], [place] [address] Social History Tobacco Use Types [...] - 05/27/2020 3:20 PM EDT Radha Masterson [id number] HISTORY OF PRESENT ILLNESS: Here for ongoing [...] Osmin Castañeda Jr, MD Department of Orthopaedics [facility] documented in this encounter Plan of [...] google or use a book such as Goyaka Inc (available on Qnekt) OR Accupass (if you're using a package, it will [...] syndrome documented in this encounter Care Teams It Risk Advisor Relationship Specialty Start Date End Date Alphonso Murphy MD PCP - General Family Medicine 02/19/[address] [place] [address] documented as of this encounter
--- OUTSIDE RECORDS SUMMARY | 2022-05-03 09:09 | XMS_ITS | Encounter Summary ---
:1955 Author Organization [facility] [place] [address] Care Team Providers Name Role Phone Alphonso Murphy MD Primary Care Provider [phone] Encounter Details Date Type Department Care Team Description 12/03/2020 TH Visit (TeleHealth) [facility] Day at [facility] [place] [address] Social History Tobacco Use Types Packs/Day [...] google or use a book such as Groupiter (available on RareCyte) OR WeSpeke (if you're using a package, it will have calorie and protein info on the back) - The other thing to write down would be grams of protein - 1500 is a good starting point for a ca jeffrey goal documented as of this encounter Visit Diagnoses Not on filedocumented in this encounter Care Teams Hide Shaker Relationship Specialty Start Date End Date Alphonso Murphy MD PCP - General Family Medicine 02/19/[address] [place] [address] documented as of this encounter
--- OUTSIDE RECORDS SUMMARY | 2022-05-03 09:09 | XMS_ITS | Encounter Summary ---
:1955 Author Organization [facility] [place] [address] Care Team Providers Name Role Phone Alphonso Murphy MD Primary Care Provider Encounter Details Date Type Department Care Team Description 09/03/2020 Telephone General Surgery at [facility] [place] [address] Social History Tobacco Use Types Packs/Day [...] protocol for her upcoming CT and will pick and shovel man the prescriptionswe sent in, but she plans [...] google or use a book such as Entrepreneur Education Management Corporation (available on Wiseryou) OR Roses & Rye (if you're using a package, it will have calorie and protein info on the back) - The other thing to write down would be grams of protein - 1500 is a good starting point for a ca jeffrey goal documented as of this encounter Visit Diagnoses Not on filedocumented in this encounter Care Teams Wallpaper Hanger Relationship Specialty Start Date End Date Alphonso Murphy MD PCP - General Family Medicine 02/19/[address] [place] [address] documented as of this encounter
--- OUTSIDE RECORDS SUMMARY | 2022-05-03 09:09 | XMS_ITS | Encounter Summary ---
:1955 Author Organization [facility] Address [address] [place] [address] Care Team Providers Name Role Phone Alphonso Murphy MD Primary Care Provider [phone] Encounter Details Date Type Department Care Team Description 09/02/2020 Orders Only [place] [facility] [place] Giraldo MD Pulmonary hypertension [facility] (Pr imary Dx) [place] [address] Pulmonary Medicine [phone] [place], [place] [address] Social History Tobacco Use Types [...] book such as Calorie Adalberto (available on Myxer) OR BCKSTGR (if you're using a package, it will have calorie and protein info on the back) - The other thing to write down would be grams of protein - 1500 is a good starting point for a ca jeffrey goal documented as of this encounter Visit Diagnoses Diagnosis Pulmonary hypertension - Primary Other chronic pulmonary heart diseases documented in this encounter Care Teams Office Machine Service Supervisor Relationship Specialty Start Date End Date Alphonso Murphy MD PCP - General Family Medicine 02/19/[address] [place] [address] [address] [place] [address] documented as of this encounter
--- OUTSIDE RECORDS SUMMARY | 2022-05-03 09:09 | XMS_ITS | Encounter Summary ---
:1955 Author Organization [facility] Address [address] [place] [address] Care Team Providers Name Role Phone Alphonso Murphy MD Primary Care Provider [phone] Encounter Details Date Type Department Care Team Description 12/23/2020 Orders Only Cardiology at [facility] [place] Esther Llanes Chronic heart failure [facility] OZ Nelson with pres jaylene [place] [id number] Social History Tobacco Use Types Packs/Day Years [...] google or use a book such as Arctrieval (available on HEALBE) OR Leftronic (if you're using a package, it will [...] 474 ms MUSE SYSTEM (Bezet) Calculated P [place] 70 degrees MUSE SYSTEM Calculated R [place] 68 degrees MUSE SYSTEM Calculated T [place] 35 degrees MUSE SYSTEM INTERPRETATION Normal sinus [...] fraction documented in this encounter Care Teams Quarantine Inspector Relationship Specialty Start Date End Date Alphonso Murphy MD PCP - General Family Medicine 02/19/[address] [place] [address] documented as of this encounter
--- OUTSIDE RECORDS SUMMARY | 2022-05-03 09:10 | XMS_ITS | Encounter Summary ---
:1955 [place] [address] Care Team Providers Name Role Phone Alphonso Murphy MD Primary Care Provider [phone] Encounter Details Date Type Department Care Team Description 11/29/2018 Ancillary Procedure Radiology Library at Josué Lozano MARITZA GARCIA [facility] [place] [address] PULMONARY MEDICINE [phone] [place], [place] [address] (Wo rk) Social History Tobacco [...] Organization Address City/State/ZIP Code Phon e Number [place], [place] documented in this encounter Visit Diagnoses Not on filedocumented in this encounter Care Teams Professor Of Biochemistry Relationship Specialty Start Date End Date Alphonso Murphy MD PCP - General Family Medicine 02/19/[address] [place] [address] documented as of this encounter
--- OUTSIDE RECORDS SUMMARY | 2022-05-03 09:10 | XMS_ITS | Encounter Summary ---
:1955 Author Organization [facility] [place] [address] Care Team Providers Name Role Phone Alphonso Murphy MD Primary Care Provider [phone] Encounter Details Date Type Department Care Team Description 08/06/2019 Telephone Weight and Wellness at [facility] Macario Ebony Nelson [address] [place] [address] Social History Tobacco Use Types Packs/Day Years [...] on filedocumented in this encounter Care Teams Physical Testing Supervisor Relationship Specialty Start Date End Date Alphonso Murphy MD PCP - General Family Medicine 02/19/[address] [place] [address] documented as of this encounter
--- OUTSIDE RECORDS SUMMARY | 2022-05-03 09:10 | XMS_ITS | Encounter Summary ---
:1955 Author Organization [facility] Address [facility] [place] [address] Care Team Providers Name Role Phone Alphonso Murphy MD Primary Care Provider [phone] Encounter Details Date Type Department Care Team Description 08/06/2019 Orders Only Orthopaedics at [facility] Maddy, Pain in right wrist [facility] Ron Velasquez Jr., [place] [address] [facility] [phone] DR ORTHOPAEDIC SURGERY [place], [place] [address] Social History Tobacco Use Types [...] forearm documented in this encounter Care Teams Public School Teacher Relationship Specialty Start Date End Date Alphonso Murphy MD PCP - General Family Medicine 02/19/[address] [place] [address] documented as of this encounter
--- OUTSIDE RECORDS SUMMARY | 2022-05-03 09:10 | XMS_ITS | Encounter Summary ---
:1955 Author Organization [facility] [place] [address] Care Team Providers Name Role Phone Alphonso Murphy MD Primary Care Provider [phone] Encounter Details Date Type Department Care Team Description 05/09/2019 Ancillary Procedure Radiology Library at Josué Murphy [facility] [address] [id number] [phone] Social History Tobacco Use Types Packs/Day Years [...] Organization Address City/State/ZIP Code Phon e Number [place], [place] documented in this encounter Visit Diagnoses Not on filedocumented in this encounter Care Teams Homogenizer Operator Relationship Specialty Start Date End Date Alphonso Murphy MD PCP - General Family Medicine 02/19/[address] [place] [address] documented as of this encounter
--- OUTSIDE RECORDS SUMMARY | 2022-05-03 09:10 | XMS_ITS | Encounter Summary ---
:1955 Author Organization [facility] [place] [address] Care Team Providers Name Role Phone Alphonso Murphy MD Primary Care Provider [phone] Reason for Visit Reason Comments Follow-up Weight Management Encounter Details Date Type Department Care Team Description 09/10/2019 Office Visit Weight and Wellness Tisha Young L, Cl ass 3 severe obesity at [facility] due to excess calories [address] [facility] with serious [place], [place] DR comorbidity and body [address] [facility] mass index (BMI) of [phone] PRIMARY CARE 60.0 to 69.9 in adult [place], [place] [address] Social History Tobacco Use Types [...] MD - 09/10/2019 1:30 PM EST . [facility] Visit Patient Name: Radha Masterson Date of : 1955 Age: 64 y.o. Alphonso Murphy MD Thank you for referring Radha Masterson to the [facility] for consultation regardingobesity. [...] BMI was 73.8, weight 430 lbs. Saw phlebotomist associate Dimple on 08/20 who wrote: Radha is [...] meat or yogurt. Does not like plain hungarian yogurt even with adding fruit. Tracking: Started [...] weight. Every pound made my breathing worse. [facility] Initial Responses 08/06/2019 PROMIS 6B Scores 35.1 [...] metformin. RTC me same day as October phlebotomist associate appt. Contact me with concerns. I spent a total of 30 minutes with the patient 20 minutes of which were spent in [id number] discussion/counseling re obesity, nutrition and activity as [...] google or use a book such as Estadeboda (available on Moov cc.) OR Hand Talk (if you're using a package, it will [...] adult documented in this encounter Care Teams Manufacturing Accountant Relationship Specialty Start Date End Date Alphonso Murphy MD PCP - General Family Medicine 02/19/[address] [place] [address] documented as of this encounter
--- OUTSIDE RECORDS SUMMARY | 2022-05-03 09:10 | XMS_ITS | Encounter Summary ---
:1955 Author Organization [facility] [place] [address] Care Team Providers Name Role Phone Alphonso Murphy MD Primary Care Provider [phone] Encounter Details Date Type Department Care Team Description 09/11/2019 Orders Only Weight and Wellness at Tisha Young, Vitamin D deficiency [facility] [address] [place] [address] [facility] PRIMARY CARE [place], [place] [address] (Wo rk) Social History Tobacco [...] book such as Calorie Adalberto (available on Corium International) OR Centaur (if you're using a package, it will have calorie and protein info on the back) - The other thing to write down would be grams of protein - 1500 is a good starting point for a ca jeffrey goal documented as of this encounter Visit Diagnoses Diagnosis Vitamin D deficiency Unspecified vitamin D deficiency documented in this encounter Care Teams Kiln Pusher Relationship Specialty Start Date End Date Alphonso Murphy MD PCP - General Family Medicine 02/19/[address] [place] [address] [address] [place] [address] documented as of this encounter
--- OUTSIDE RECORDS SUMMARY | 2022-05-03 09:10 | XMS_ITS | Encounter Summary ---
:1955 Author Organization [facility] Address [address] [place] [address] Care Team Providers Name Role Phone Alphonso Murphy MD Primary Care Provider [phone] Encounter Details Date Type Department Care Team Description 09/21/2019 [facility] [address], RD due to excess calories [address] [place] [address] comorbidity and body [phone] mass index (BMI ) of 60.0 to [...] loss x 1 month Vitals 09/21/2019 Height (Greek) 64.016 Height (Metric) 162.6 cm Weight (Greek) 403 lbs 13 oz Weight (Metric) 183.162 [...] google or use a book such as BATTERIES & BANDS (available on mindSHIFT Technologies) OR Botanic Innovations (if you're using a package, it [...] google or use a book such as BATTERIES & BANDS (available on mindSHIFT Technologies) OR Botanic Innovations (if you're using a package, it [...] adult documented in this encounter Care Teams Lawn Mower Mechanic Relationship Specialty Start Date End Date Alphonso Murphy MD PCP - General Family Medicine 02/19/[address] [place] [address] documented as of this encounter
--- OUTSIDE RECORDS SUMMARY | 2022-05-03 09:10 | XMS_ITS | Encounter Summary ---
:1955 [place] [address] Care Team Providers Name Role Phone Alphonso Murphy MD Primary Care Provider [phone] Encounter Details Date Type Department Care Team Description 12/13/2018 Ancillary Procedure Radiology Library at Josué Lozano MARITZA GARCIA [facility] [place] [phone] PULMONARY MEDICINE [phone] [place], [place] [address] (Wo rk) Social History Tobacco [...] Organization Address City/State/ZIP Code Phon e Number [place], [place] documented in this encounter Visit Diagnoses Not on filedocumented in this encounter Care Teams Executive Director Global Brand Marketing Relationship Specialty Start Date End Date Alphonso Murphy MD PCP - General Family Medicine 02/19/[address] [place] [address] documented as of this encounter
--- OUTSIDE RECORDS SUMMARY | 2022-05-03 09:10 | XMS_ITS | Encounter Summary ---
:1955 Author Organization [facility] [place] [address] Care Team Providers Name Role Phone Alphonso Murphy MD Primary Care Provider [phone] Encounter Details Date Type Department Care Team Description 08/13/2019 Orders Only Weight and Wellness at Joe Jacinto, OZ [facility] [address] [place] [address] Social History Tobacco Use Types Packs/Day [...] on filedocumented in this encounter Care Teams Rear Admiral Relationship Specialty Start Date End Date Alphonso Murphy MD PCP - General Family Medicine 02/19/[address] [place] [address] documented as of this encounter
--- OUTSIDE RECORDS SUMMARY | 2022-05-03 09:10 | XMS_ITS | Encounter Summary ---
:1955 Author Organization [facility] [place] [address] Care Team Providers Name Role Phone Alphonso Murphy MD Primary Care Provider [phone] Encounter Details Date Type Department Care Team Description 06/27/2019 Ancillary Procedure Radiology Library at Josué Murphy [facility] [address] [phone] Social History Tobacco Use Types Packs/Day Years [...] Organization Address City/State/ZIP Code Phon e Number [place], [place] documented in this encounter Visit Diagnoses Not on filedocumented in this encounter Care Teams Noodle Maker Relationship Specialty Start Date End Date Alphonso Murphy MD PCP - General Family Medicine 02/19/[address] [place] [address] documented as of this encounter
--- OUTSIDE RECORDS SUMMARY | 2022-05-03 09:10 | XMS_ITS | Encounter Summary ---
:1955 Author Organization [facility] [place] [address] Care Team Providers Name Role Phone Alphonso Murphy MD Primary Care Provider Encounter Details Date Type Department Care Team Description 11/07/2019 Telephone Weight and Wellness at [facility] [address] [place] [address] Social History Tobacco Use Types Packs/Day Years [...] google or use a book such as AssetAvenue (available on Breadcrumbtracking) OR Insightly (if you're using a package, it will have calorie and protein info on the back) - The other thing to write down would be grams of protein - 1500 is a good starting point for a ca jeffrey goal documented as of this encounter Visit Diagnoses Not on filedocumented in this encounter Care Teams Provider Relations Consultant Relationship Specialty Start Date End Date Alphonso Murphy MD PCP - General Family Medicine 02/19/[address] [place] [address] documented as of this encounter
--- OUTSIDE RECORDS SUMMARY | 2022-05-03 09:10 | XMS_ITS | Encounter Summary ---
:1955 Author Organization [facility] [place] [address] Care Team Providers Name Role Phone Alphonso Murphy MD Primary Care Provider [phone] Reason for Visit Reason Comments Medication Refill Encounter Details Date Type Department Care Team Description 05/23/2019 Refill Hematology and Oncology at Tomás [place] [address] [place] [address] [phone] Social History Tobacco Use Types Packs/Day Years [...] book such as Calorie Adalberto (available on Proformative) OR Withings (if you're using a package, it will have calorie and protein info on the back) - The other thing to write down would be grams of protein - 1500 is a good starting point for a ca jeffrey goal documented as of this encounter Visit Diagnoses Not on filedocumented in this encounter Care Teams Rectification Printer Relationship Specialty Start Date End Date Alphonso Murphy MD PCP - General Family Medicine 02/19/[address] [place] [address] [address] [place] [address] documented as of this encounter
--- OUTSIDE RECORDS SUMMARY | 2022-05-03 09:10 | XMS_ITS | Encounter Summary ---
:1955 Author Organization [facility] [place] [address] Care Team Providers Name Role Phone Alphonso Murphy MD Primary Care Provider [phone] Encounter Details Date Type Department Care Team Description 08/13/2019 Notes Only Weight and Wellness at Joe Jacinto RN [address] [address] Social History Tobacco Use Types Packs/Day [...] 08/13/2019 2:02 PM EST Received request from [facility] provider to update medication list based on report from PCP. Thank you, Andi Jacinto RN documented in this encounter Plan of Treatment Not on filedocumented as of this encounter Visit Diagnoses Not on filedocumented in this encounter Care Teams Conflict Resolution Professional Relationship Specialty Start Date End Date Alphonso Murphy MD PCP - General Family Medicine 02/19/[address] [place] [address] documented as of this encounter
--- OUTSIDE RECORDS SUMMARY | 2022-05-03 09:10 | XMS_ITS | Encounter Summary ---
:1955 Author Organization [facility] [place] [address] Care Team Providers Name Role Phone Alphonso Murphy MD Primary Care Provider [phone] Encounter Details Date Type Department Care Team Description 08/06/2019 Hospital Encounter XRay at [facility] Maddy, Pain in right wrist [address] [facility] [address] Osmin Velasquez Jr., [place] [address] [facility] [phone] [place] [facility] [place], [place] [id number] Social History Tobacco Use Types Packs/Day Years [...] (FLONASE) 50 route daily as needed. mcg/actuation [place], 04/06 Patient states Suspension that she only [...] forearm documented in this encounter Care Teams Gastroenterology Physician Relationship Specialty Start Date End Date Alphonso Murphy MD PCP - General Family Medicine 02/19/[address] [place] [address] [address] [facility] 1 [place] [address] documented as of this encounter
--- OUTSIDE RECORDS SUMMARY | 2022-05-03 09:10 | XMS_ITS | Encounter Summary ---
:1955 [place] [address] Care Team Providers Name Role Phone Alphonso Murphy MD Primary Care Provider [phone] Encounter Details Date Type Department Care Team Description 11/29/2018 Ancillary Procedure Radiology Library at Josué Lozano MARITZA GARCIA [facility] [place] [address] PULMONARY MEDICINE [phone] [place], [place] [address] (Wo rk) Social History Tobacco [...] Address City/State/ZIP Code Phon e Number [place], [place] documented in this encounter Visit Diagnoses Not on filedocumented in this encounter Care Teams Battery Hand Relationship Specialty Start Date End Date Alphonso Murphy MD PCP - General Family Medicine 02/19/[address] [place] [address] documented as of this encounter
--- OUTSIDE RECORDS SUMMARY | 2022-05-03 09:10 | XMS_ITS | Encounter Summary ---
:1955 Author Organization [facility] [place] [address] Care Team Providers Name Role Phone Alphonso Murphy MD Primary Care Provider [phone] Encounter Details Date Type Department Care Team Description 09/06/2019 Telephone Weight and Wellness at [facility] Sorto Ebony Omar [address] [place] [address] Social History Tobacco Use Types Packs/Day Years [...] google or use a book such as Thimble Bioelectronics (available on BuzzSumo) OR FashionQlub (if you're using a package, it will have calorie and protein info on the back) - The other thing to write down would be grams of protein - 1500 is a good starting point for a ca jeffrey goal documented as of this encounter Visit Diagnoses Not on filedocumented in this encounter Care Teams Fire Prevention Captain Relationship Specialty Start Date End Date Alphonso Murphy MD PCP - General Family Medicine 02/19/[address] [place] [address] documented as of this encounter
--- OUTSIDE RECORDS SUMMARY | 2022-05-03 09:10 | XMS_ITS | Encounter Summary ---
:1955 Author Organization [facility] [place] [address] Care Team Providers Name Role Phone Alphonso Murphy MD Primary Care Provider [phone] Encounter Details Date Type Department Care Team Description 11/07/2019 Telephone Weight and Wellness at [facility] Yoandy Medina, [facility] [address] [place] [address] Social History Tobacco Use Types Packs/Day Years Used Date Former Smoker Cigarettes 3 40 Quit: 10/08/19 11 Smokeless Tobacco: Never Used Alcohol Use Standard Drinks/Week Comments No 0 (1 standard drink = 0.6 oz pure alcoho l) Sex Assigned at Date Recorded Not on file documented as of this encounter Miscellaneous Notes Telephone Encounter - Lisy Medina, [facility] - 11/07/2019 10:03 AM EDT [facility] Computer Consultant pre telemedicine visit phone note. [] Confirmed [...] google or use a book such as Locality (available on Intune Networks) OR myEnergyPlatform.com (if you're using a package, it will have calorie and protein info on the back) - The other thing to write down would be grams of protein - 1500 is a good starting point for a ca jeffrey goal documented as of this encounter Visit Diagnoses Not on filedocumented in this encounter Care Teams Inseamer Relationship Specialty Start Date End Date Alphonso Murphy MD PCP - General Family Medicine 02/19/[address] [place] [address] documented as of this encounter
--- OUTSIDE RECORDS SUMMARY | 2022-05-03 09:10 | XMS_ITS | Encounter Summary ---
:1955 Author Organization [facility] [place] [address] Care Team Providers Name Role Phone Alphonso Murphy MD Primary Care Provider [phone] Encounter Details Date Type Department Care Team Description 11/13/2019 Telephone Weight and Wellness at [facility] Amanda Serrato [address] [place] [address] Social History Tobacco Use Types Packs/Day Years [...] follow up visits (Kiersten, end november, Camila, mid-December);[facility] telephone number provided. documented in this [...] or use a book such as Calorie Sportsgrit (available on Siva Therapeutics) OR Nasuni (if you're using a package, it will have calorie and protein info on the back) - The other thing to write down would be grams of protein - 1500 is a good starting point for a ca jeffrey goal documented as of this encounter Visit Diagnoses Not on filedocumented in this encounter Care Teams Center Customer Service Associate Relationship Specialty Start Date End Date Alphonso Murphy MD PCP - General Family Medicine 02/19/[address] [place] [address] documented as of this encounter
--- OUTSIDE RECORDS SUMMARY | 2022-05-03 09:10 | XMS_ITS | Encounter Summary ---
:1955 Author Organization [facility] [place] [address] Care Team Providers Name Role Phone Alphonso Murphy MD Primary Care Provider [phone] Reason for Referral Consultation (Routine) - Closed Specialty Diagnoses / Procedures Referred By Contact Refer red To Contact Weight and Wellness Diagnoses Pulmonary hypertension Sunitha Reilly, [facility] Weight Wellness NYLON MACHINE OPERATOR [address] [place] [address] [place] [address] Referral ID Status Reason Start Date Expiration Date Visits V isits Requested Authorized [id number] Closed Consult, 05/21/2019 05/20/2020 1 1 Test & Treat Reason for Visit Consultation (Routine) - Specialty Diagnoses / Procedures Referred By Contact Refer red To Contact Cardiology Diagnoses PAH (pulmonary arterial hypertension) with portal hypertension Alphonso Murphy MD D'Anna, Susan P, NYLON MACHINE OPERATOR [address] [place] [address] [place] [address] [place] [address] Phone: Fax: Referral ID Status Reason Start Date Expiration Date Visits V isits Requested Authorized [id number] Consult, Test 03/21/2019 03/20/2020 6 6 & Treat PCP Updated and/or Approved Encounter Details Date Type Department Care Team Description 05/21/2019 Office Visit Cardiology at [facility] Tex Edwards MD [facility] [place] [address]monary [address] [facility] Sunitha Reilly, DEISY [facility] [place] [address] [place] [id number] Social History Tobacco Use Types Packs/Day Years [...] original note were not included. CARDIOVASCULAR MEDICINE [place] [address] New Patient /Consultation Visit Subjective Identification Radha [...] Social History Social History Narrative Lives in [facility]. Daughter lives with her for [...] Nontender. Extremities: Large but no significant edema FOAMING MACHINE OPERATOR: Normal mentation. Psych: Appropriate affect. I [...] hypoxic lung disease. Tex Edwards MD [facility] cc: ?? Alphonso Murphy MD [address] [place], [place] [address]Y [facility] / [facility] [id number] documented in this encounter Plan of Treatment Scheduled Referrals Name Type Priority Associated Diagnoses Order S chedule Referral to Weight Outpatient Referral Routine [facility] hypertension 05/21/2019 documented as of this encounter Procedures Procedure Name Priority Date/Time Associated Diagnosis Comme nts EKG 12-LEAD Routine 05/21/2019 3:55 PM Pulmonary hypertension Results for this EDT procedure are i n the results section. documented in this encounter Results EKG 12 Lead (05/21/2019 3:55 PM EDT) [facility] Method Time Signature Ventricular rate 80 BPM MUSE SYSTEM Atrial Rate 80 BPM MUSE SYSTEM P-R Interval 170 ms MUSE SYSTEM QRS Duration 88 ms MUSE SYSTEM Q-T Interval 402 ms MUSE SYSTEM QTC Calculated 463 ms MUSE SYSTEM (Bezet) Calculated P [facility] 54 degrees MUSE SYSTEM Calculated R [facility] 65 degrees MUSE SYSTEM Calculated T [facility] 42 degrees MUSE SYSTEM INTERPRETATION Normal sinus rhythm MUSE SYSTEM Normal ECG When compared with ECG of 16-JAN-2017 23:16, QRS duration has decreased Confirmed by MD Verito, Shannon ([id number]) on 05/21/2019 8:1 0:14 PM Specimen Anatomical Collection Method Collection Time Receive d Time (Source) Location / / Volume Laterality 05/21/2019 3:55 PM 9 8:10 EDT PM EDT Sunitha Reilly APRN ECG ORDERABLES Performing Organization Address City/State/ZIP Code Phon e Number MUSE SYSTEM documented in this encounter Visit Diagnoses Diagnosis Pulmonary hypertension Other chronic pulmonary heart diseases documented in this encounter Care Teams Forensic Psychiatrist Relationship Specialty Start Date End Date Alphonso Murphy MD PCP - General Family Medicine 02/19/[address] [place] [address] documented as of this encounter
--- OUTSIDE RECORDS SUMMARY | 2022-05-03 09:10 | XMS_ITS | Encounter Summary ---
:1955 Author Organization [place] [address] Care Team Providers Name Role Phone Alphonso Murphy MD Primary Care Provider [phone] Encounter Details Date Type Department Care Team Description 05/21/2019 Hospital Encounter Cardiac Rehab [facility] Cardiac Rehab Pr og, [facility] [place] [address] Social History Tobacco Use Types Packs/Day [...] on filedocumented in this encounter Care Teams Asphalt Mixing Machine Operator Relationship Specialty Start Date End Date Alphonso Murphy MD PCP - General Family Medicine 02/19/[address] [place] [address] documented as of this encounter
--- OUTSIDE RECORDS SUMMARY | 2022-05-03 09:10 | XMS_ITS | Encounter Summary ---
:1955 Author Organization [facility] [place] [address] Care Team Providers Name Role Phone Alphonso Murphy MD Primary Care Provider [phone] Reason for Referral Consultation (Routine) - Closed Specialty Diagnoses / Procedures Referred By Contact Refer red To Contact Neurology Diagnoses Neuritis of right ulnar nerve Pain in right wrist Osmin Castañeda [facility] [place] [address] [place] [address] Referral ID Status Reason Start Date Expiration Date Visits V isits Requested Authorized [id number] Closed Consult & 08/06/2019 08/05/2020 1 1 [...] [facility] [place] [facility] [address] [facility] [place] [address] Referral ID Status Reason Start Date Expiration Date Visits V isits Requested Authorized [id number] Closed Consult, Test 07/03/2019 07/02/2020 1 1 & [facility] PCP Updated and/or Approved Encounter Details Date Type Department Care Team Description 08/06/2019 Office Visit Orthopaedics at [facility] Maddy, Neuritis of right ulnar nerv e; [facility] Osmin Velasquez Jr., MD [place] in [place] [address] CENTER [phone] ORTHOPAEDIC SURGERY [place], [place] [address] Social History Tobacco Use [...] 08/06/2019 1:30 PM EST Radha Masterson 1955 [id number] 08/06/2019 HPI: Radha is 64 y.o. RIGHT [...] file Gets together: Not on file Attends oriental orthodox service: Not on file Active member of [...] on file Social History Narrative Lives in [facility] [place]. Daughter lives with her for now. Has [...] 0 ??? fluticasone propionate (FLONASE) 50 mcg/actuation [place], Suspension SHAKE LQ AND U 1 SPR [...] Osmin Castañeda Jr, MD Department of Orthopaedics [facility] documented in this encounter Plan of Treatment Scheduled Referrals Name Type Priority Associated Diagnoses Order S chedule Referral to Outpatient Referral Routine Neuritis of right Ord ered: Neurology ulnar nerve 08/06/2019 Pain in right wrist documented as of this encounter Visit Diagnoses Diagnosis Neuritis of right ulnar nerve Pain in right wrist Pain in joint, forearm documented in this encounter Care Teams Assembly Department Supervisor Relationship Specialty Start Date End Date Alphonso Murphy MD PCP - General Family Medicine 02/19/[address] [place] [address] documented as of this encounter
--- OUTSIDE RECORDS SUMMARY | 2022-05-03 09:10 | XMS_ITS | Encounter Summary ---
:1955 Author Organization [facility] [place] [address] Care Team Providers Name Role Phone Alphonso Murphy MD Primary Care Provider [phone] Reason for Visit Consultation (Routine) - Closed Specialty Diagnoses / Procedures Referred By Contact Refer red To Contact Neurology Diagnoses Neuritis of right ulnar nerve Pain in right wrist Osmin Castañeda [facility] [place] yg Sims MD [facility] [place] [address] [place] [address] Referral ID Status Reason Start Date Expiration Date Visits V isits Requested Authorized [id number] Closed Consult & 08/06/2019 08/05/2020 1 1 Test Encounter Details Date Type Department Care Team Description 10/22/2019 Procedure visit Neurology at [facility] Derik Agrawal MD Carpal tunnel syndrome on right; [facility] gui ropathy at elbow, right [facility] [address] [place] [phone] Social History Tobacco [...] original note were not [place] [address] EMG/NCS REPORT 10/22/2019 Patient name: Radha Masterson Date of : 1955 Referring provider: Osmin Castañeda Jr., MD [facility] [place] [address] History and Examination: Referred for EMG studies for R hand pain. She has symptoms in the median distribution of R hand andpain in the R elbow medial aspect. No significant weakness or wasting. On a wheelchair. High BMI. There were no vitals taken for this visit. Nerve Conduction Studies For sensory nerve conduction studies, the amplitude is measured [id number], the latency reported is the distal peak latency, and the conduction velocity, if measured, is determined from onset latencies and is over the extremity. For motor nerve conduction studies, the amplitude is measured [id number], the latency reportedis the distal onset latency,the conduction velocity is calculated over the extremity, and the F wavelatency is the minimum latency. Unless otherwise noted, the upper limb temperature was maintained above 31 degrees Celsius and lowerlimb above 30 degrees. Technologist: GIORGIO Sensory Nerve Conduction Nerve / Sites Rec. Site Peak Lat ASSISTANT MANAGER BILINGUAL Amp Ref. Distance Onset Alexis Ref. ms [...] elbow. Derik Agrawal MD Department of Neurology [facility] documented in this encounter Plan [...] or use a book such as [employer] (available on Tunii) OR Trivop (if you're using a package, it will [...] right documented in this encounter Care Teams Finance Business Manager Relationship Specialty Start Date End Date Alphonso Murphy MD PCP - General Family Medicine 02/19/[address] [place] [address] documented as of this encounter
--- OUTSIDE RECORDS SUMMARY | 2022-05-03 09:10 | XMS_ITS | Encounter Summary ---
:1955 Author Organization [facility] [place] [address] Care Team Providers Name Role Phone Alphonso Murphy MD Primary Care Provider [phone] Reason for Visit Consultation (Routine) - Closed Specialty Diagnoses / Procedures Referred By Contact Refer red To Contact Weight and Wellness Diagnoses Pulmonary hypertension Sunitha Reilly P, Htr Weight Wellness SENIOR QUALITY ASSURANCE SPECIALIST [address] [place] [address] [place] [address] Referral ID Status Reason Start Date Expiration Date Visits V isits Requested Authorized [id number] Closed Consult, 05/21/2019 05/20/2020 1 1 Test & Treat Encounter Details Date Type Department Care Team Description 08/06/2019 Office Visit Weight and Wellness Tisha Young Mo rbid obesity with BMI of 70 and over, adult (Primary Dx); at [facility] Obesity, unspecified classification, uns pecified obesity type, unspecified whether serious comorbidity present; [address] [facility] Other specified disorders of carbohydrate metabolism ; [place], [place] Prediabetes ; [address] [facility] Grief at loss of child [phone] [facility] [place] [facility] Social History Tobacco Use Types Packs/Day [...] have labs. Intake appointment with our health head athletic trainer/strength coach and dietitian to be scheduled. See [...] involves regular visits with me and the qa automation developer and (if desired) the health head athletic trainer/strength coach (but not the classes). We also [...] first psychologist visit is done after 2 qa automation developer visits. ( ) I requested that you be put on the waiting list for the ACT group. ( ) I requested that you be put on the waiting list for our psychologist. ( ) bariatric pathway. Initial goals: Tracking: Please track calorie intake via a paper journal or free calorie-tracking guerita on your smart phone (like UtiliData or MacroCure It) for review by our dietitian. Activity: [...] egg, or cottage cheese. You don't like maldivian yogurt. Make sleep a priority. ( ) [...] have questions or concerns please send a [employer] message or call the office. I am [...] Mindful Diet by Kim Molina and the [facility] group. Emotional eating: End Emotional [...] Dr. Nakul Nguyen/Mike Becerra [facility] [id number]: [facility] Biorepository VELOS: [id number] Radha Masterson??consented to participate in the above-named [...] 08/06/2019 9:00 AM EST Weight and Wellness [facility] Visit Patient Name: Radha Masterson Date of : 1955 Age: 64 y.o. Patient lives in: [place], [place] .Referred by: Sunitha Reilly of cardiology. Alphonso Murphy MD Is PCP. Thank you for referring Radha Masterson to the [facility] for a consultation for obesity management. I reviewed past records including notes, labs, available survey results and other available data and discussed them with the patient. CHIEF COMPLAINT: Management of excess weight HISTORY OF PRESENT ILLNESS: Radha Masterson is a 64 y.o. female referred to the [facility] for an evaluation of obesity. 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 They and my doc says I have to lose some weight. I have always been big. When I was still walking I was 360 lbs and I went to work every day. 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 Sees lung doctor in [facility]. Last time she was in the hospital: [facility] a few months. Was on prednisone. On pred 2 to 3 x per year. From [facility] cardiology eval of 05/2019: She has mild [...] eating: No Fast food, including pizza and Belgian: once or twice per month. Do you cook? Yes. Lives alone. Her 2 grandchildren stay over a few times per week. She does the grocery shopping, takes shuttle bus. Have you taken prescription meds for weight loss? No Worked with a qa automation developer? Yes but was of no help. Talked about dividing plate into 4. Do you do tracking of your food intake? No. Activity/exercise: Can walk 10 to 20 feet with walker, Cannot walk without walker, Sister helps her with showering. Uses medical rides. Friend brought her today. Does not drive. [facility] Initial Responses 08/06/2019 PROMIS 6B Scores [...] Social History: Reviewed. Grew up in : [place] The patient's support system includes: Sister, Oldest [...] AND RECOMMENDATIONS: Radha Masterson presents to the [facility] for a consultative visit regarding obesity management. [...] that obesity is a chronic disease requiring tank terminal gauger management. Obesity is associated with increased risk [...] classes for 16 weeks, then monthly health head athletic trainer/strength coach visits along with regular provider and qa automation developer visits. The medical management pathway involves regular provider and qa automation developer visits and optional health head athletic trainer/strength coach visits. Patient lives one hour away anddepends on medical rides so HL will not work for her since rides to classes are not covered. Will schedule a baseline nutrition, health head athletic trainer/strength coach Assessment. Preliminary goals for healthy eating, [...] Pulmonary HTN: cardiology note reviewed. . Sees garbage person in [facility]. #DAVID: ?? diagnosed with sleep study Continue biPAP as prescribed Patient Instructions II recommend increasing the metformin to full dose which is 1000 mg twice daily. I did not do this today because I don't have labs. Intake appointment with our health head athletic trainer/strength coach and dietitian to be scheduled. See [...] involves regular visits with me and the qa automation developer and (if desired) the health head athletic trainer/strength coach (but not the classes). We also [...] first psychologist visit is done after 2 qa automation developer visits. ( ) I requested that you be put on the waiting list for the ACT group. ( ) I requested that you be put on the waiting list for our psychologist. ( ) bariatric pathway. Initial goals: Tracking: Please track calorie intake via a paper journal or free calorie-tracking guerita on your smart phone (like UtiliData or Lose It) for review by our [...] egg, or cottage cheese. You don't like maldivian yogurt. Make sleep a priority. ( ) [...] have questions or concerns please send a [employer] message or call the office. I am [...] Mindful Diet by Kim Molina and the [facility]. Emotional eating: End Emotional [...] 35 minutes of which were spent in [id number] discussion/counseling re obesity,medication, nutrition and activity as [...] book such as [employer] (available on Ifinity) OR Centr[employer] (if you're using a package, it will have calorie and protein info on the back) - The other thing to write down would be grams of protein - 1500 is a good starting point for a ca jeffrey goal documented as of this encounter Results Vitamin B12 (09/10/2019 1:29 PM EST) athologist Signature Vitamin B-12 450 232 - 1,245 [facility] pg/mL [facility] Specimen Anatomical Collection Method Collection Time Receive d Time (Source) Location / / Volume Laterality Blood specimen 09/10/2019 1:29 PM 020 4:17 (specimen) EST PM EST Resulting Agency Comment Spec In Lab Tisha Young MD CHEMISTRY ORDERABLES Performing Organization Address City/State/ZIP Code Ph[place] [address] (ABNORMAL) Vitamin D, 25-Hydroxy (09/10/2019 1:29 PM EST) athologist Signature 25-OH Vit D 12 (L) 30 - 100 [facility] Total ng/mL [facility] Comment: As of 2019, 25-hydroxyvitamin D kyler ting has moved from the IDS-iSYS to the Moy Hubert. No substantial change in hi asured values is expected. Specimen Anatomical Collection Method Collection Time Receive d Time (Source) Location / / Volume Laterality Blood specimen 09/10/2019 1:29 PM 020 4:17 (specimen) EST PM EST Resulting Agency Comment Spec In Lab Tisha Young MD CHEMISTRY ORDERABLES Performing Organization Address City/[facility]/ZIP Code Phon e Number [address] TSH (09/10/2019 1:29 PM EST) P athologist Signature TSH 1.38 0.27 - 4.20 [facility] mcIU/mL [facility] Specimen Anatomical Collection Method Collection Time Receive d Time (Source) Location / / Volume Laterality Blood specimen 09/10/2019 1:29 PM 020 4:18 (specimen) EST PM EST Resulting Agency Comment Spec In Lab Tisha Young MD CHEMISTRY ORDERABLES Performing Organization Address City/[facility]/ZIP Code Phon e Number [address] Hemoglobin A1c (09/10/2019 1:29 [...] Mellitus, Diabetes Care 2013; 36: Suppl. 1, S67-32 Est Avg Gluc 113 mg/dL [facility] Comment: eAG equivalents for HbA1c [...] into estimated average glucose values. ??Diabetes Care 2008:31(8):5261-4238. Specimen Anatomical Collection Method Collection Time Receive d Time (Source) Location / / Volume Laterality Blood specimen 09/10/2019 1:29 PM 020 4:12 (specimen) EST PM EST Resulting Agency Comment Spec In Lab Tisha Young MD CHEMISTRY ORDERABLES Performing Organization Address City/State/ZIP Code Phon e Number [place] [phone] (ABNORMAL) CMP w/fasting Glucose (09/10/2019 1:29 PM EST) athologist Signature Glucose 100 (H) 65 - 99 [facility] Fasting mg/dL [facility] Comment: ?Fasting* Glucose Interpretive C [...] of Diabetes Mellitus, Position Statement from the [place] Diabetes Association. ??Diabete s Care, Volume 33, Supplement 1, Aug 2009 BUN 17 8 - 18 mg/dL [facility] Creatinine 0.59 (L) 0.70 - 1.20 mg/dL [facility] Sodium 141 135 - 145 mmol/L [facility] Potassium 3.8 3.5 - 5.0 mmol/L [facility] Comment: Please note: ??Patients with WBC >100,00 0 may have falsely elevated Potassium levels. ??For accurate Potassium quantif ication in these patients send serum separator tube (gold top) for subsequent determinations. ??Contact the Clinical Chemistry Laboratory if there are any qu estions. Chloride 101 98 - 107 mmol/L [facility] CO2 28 22 - 31 mmol/L [facility] Anion Gap 12 5 - 15 mmol/L [facility] Calcium 9.7 8.5 - 10.5 mg/dL [facility] Total Protein 7.4 6.1 - 8.0 gm/dL [facility] Albumin 4.1 3.2 - 5.2 gm/dL [facility] AST 32 (H) 0 - 30 unit/L [facility] ALT 38 (H) 0 - 30 unit/L [facility] Alk Phos 74 35 - 105 unit/L [facility] Total Bilirubin 1.2 0.2 - 1.3 mg/dL [facility] Estimated GFR 98 >=60 mL/min/1.73 m?? [facility] Comment: The eGFR was calculated using the CKD-EP I equation. As with all creatinine based estimates of kidney function, eGFR values calculated with the CKD-EPI equation are not accurate in patients wi th acute kidney failure, extremes of body mass or the acutely ill. [email or web address] NORMANnkf eGFR 113 >=60 mL/min/1.73 m?? [facility] Comment: The eGFR was calculated using the CKD-EP I equation. As with all creatinine based estimates of kidney function, eGFR values calculated with the CKD-EPI equation are not accurate in patients wi th acute kidney failure, extremes of body mass or the acutely ill. [email or web address] Specimen Anatomical Collection Method Collection Time Receive d Time (Source) Location / / Volume Laterality Blood specimen 09/10/2019 1:29 PM 020 4:18 (specimen) EST PM EST Resulting Agency Comment Spec In Lab Tisha Young MD CHEMISTRY ORDERABLES Performing Organization Address City/[facility]/ZIP Code Phon e Number [address] Biorepository Request (09/10/2019 1:29 PM EST) [facility] gist Method Time Signature Biorepository Sample in [facility] LABORATORY Specimen Anatomical Collection Method Collection Time Receive d Time (Source) Location / / Volume Laterality Blood specimen 09/10/2019 1:29 PM 020 9:23 (specimen) EST AM EST Resulting Agency Comment Spec In Lab Tisha Young MD CHEMISTRY ORDERABLES Performing Organization Address City/[facility]/ZIP Code Phon e Number [address] documented in this encounter Visit Diagnoses Diagnosis Morbid obesity with BMI of 70 and over, adult - Primary Morbid obesity Obesity, unspecified classification, uns pecified obesity type, unspecified whether serious comorbidity present Other specified disorders of carbohydrat e metabolism Prediabetes Other abnormal glucose Grief at loss of child Adjustment disorder with depressed mood documented in this encounter Care Teams Sports Marketing Internship Relationship Specialty Start Date End Date Alphonso Murphy MD PCP - General Family Medicine 02/19/16 [address] [place] [address] documented as of this encounter
--- OUTSIDE RECORDS SUMMARY | 2022-05-03 09:10 | XMS_ITS | Encounter Summary ---
:1955 Author Organization [facility] [place] [address] Care Team Providers Name Role Phone Alphonso Murphy MD Primary Care Provider [phone] Encounter Details Date Type Department Care Team Description 08/13/2019 External Results [facility] RN [address] [place] [address] Social History Tobacco Use Types Packs/Day [...] Name Priority Date/Time Associated Diagnosis Comme nts [facility] EXTERNAL RESULT Routine 06/01/2019 Results for this PANEL procedure are i n the results section . [facility] EXTERNAL RESULT Routine 05/31/2019 Results for this PANEL procedure are i n the results section . [facility] EXTERNAL RESULT Routine 05/30/2019 Results for this PANEL procedure are i n the results section . documented in this encounter Results (ABNORMAL) [facility] External Results (06/01/2019) Analysis Performed At [facility] Signature Glucose 126 (ExtH) Fasting Comment: 70-100 BUN 25 Creatinine 0.67 Sodium 140 Potassium 4.2 Chloride 104 CO2 28 Anion Gap 8 Specimen (Source) Anatomical Location Collection Method / Collectio n Time Received Time / Laterality Volume 06/01/2019 Historical Provider POINT OF CARE TEST ORDERABLE S (ABNORMAL) [facility] External Results (05/31/2019) Analysis Performed At [facility] Signature Glucose 133 (ExtH) Fasting Comment: 70-100 BUN 26 Creatinine 0.63 Sodium 139 Potassium 4.5 Chloride 104 CO2 29 Anion Gap 6 Calcium 8.3 Specimen (Source) Anatomical Location Collection Method / Collectio n Time Received Time / Laterality Volume 05/31/2019 Historical Provider POINT OF CARE TEST ORDERABLE S (ABNORMAL) [facility] External Results (05/30/2019) Analysis Performed At [facility] Signature Glucose 114 (ExtH) Fasting [...] on filedocumented in this encounter Care Teams Air Crew Officer Relationship Specialty Start Date End Date Alphonso Murphy MD PCP - General Family Medicine 02/19/[address] [place] [address] documented as of this encounter
--- OUTSIDE RECORDS SUMMARY | 2022-05-03 09:10 | XMS_ITS | Encounter Summary ---
:1955 [place] [address] Care Team Providers Name Role Phone Alphonso Murphy MD Primary Care Provider [phone] Reason for Visit Reason Comments Medication Refill Encounter Details Date Type Department Care Team Description 12/01/2019 Refill Weight and Wellness at [facility] Tisha gu MD [place] [address] [facility] [place] [address] [place] [address] [phone] (Wo rk) Social History Tobacco Use Types [...] google or use a book such as SmartThings (available on Wrightspeed) OR Acquaintable (if you're using a package, it will have calorie and protein info on the back) - The other thing to write down would be grams of protein - 1500 is a good starting point for a ca jeffrey goal documented as of this encounter Visit Diagnoses Not on filedocumented in this encounter Care Teams Nut Feeder Relationship Specialty Start Date End Date Alphonso Murphy MD PCP - General Family Medicine 02/19/[address] [place] [address] [address] [place] [address] documented as of this encounter
--- OUTSIDE RECORDS SUMMARY | 2022-05-03 09:11 | XMS_ITS | Encounter Summary ---
:1955 Author Organization [facility] [place] [address] Care Team Providers Name Role Phone Sunitha Milligan MD Primary Care Provider Encounter Details Date Type Department Care Team Description 07/29/2014 Telephone Pulmonology at [facility] Padmini Lozano MD [facility] [place] [address] PULMONARY MEDICINE [phone] [place], [place] [address] (Wo rk) Social History Tobacco [...] on filedocumented in this encounter Care Teams Ceramic Chemist Relationship Specialty Start Date End Date Sunitha Milligan MD PCP - General 07/07/10 02/18/16 [address] [place] [address] documented as of this encounter
--- OUTSIDE RECORDS SUMMARY | 2022-05-03 09:11 | XMS_ITS | Encounter Summary ---
:1955 Author Organization [facility] [place] [address] Care Team Providers Name Role Phone Sunitha Milligan MD Primary Care Provider Encounter Details Date Type Department Care Team Description 07/30/2014 Telephone Pulmonology at [facility] Padmini Lozano MD [facility] [place] [address] PULMONARY MEDICINE [phone] [place], [place] [address] (Wo rk) Social History Tobacco [...] effusion documented in this encounter Care Teams Splicer Operator Relationship Specialty Start Date End Date Sunitha Milligan MD PCP - General 07/07/10 02/18/16 [address] [place] [address] documented as of this encounter
--- OUTSIDE RECORDS SUMMARY | 2022-05-03 09:11 | XMS_ITS | Encounter Summary ---
:1955 Author Organization [facility] [place] [address] Care Team Providers Name Role Phone Sunitha Trotter MD Primary Care Provider Encounter Details Date Type Department Care Team Description 06/20/[address] Scan at [facility], CONV Pleural effusion [facility] Michele [place] MD [facility] [place] [address] [place] [address] Social History Tobacco Use Types [...] M, RN - 06/20/2014 1:42 PM EST [facility] Vascular and Interventional Radiology Discharge Instructions [...] is during regular office hours, please call [phone]. If it is after regular office hours, oron weekends or holidays, please call [phone] and ask to speak to the Sybase Developer on callfor Interventional Radiology. documented in this [...] uvula visible)?? - Juan Hanks MD (Pager #[phone]) 06/20/2014 PRE-PROCEDURE VIR NOTE: Referring Physician: Dr [...] as above* Patient Position: At discretion of in file operator Biopsy/drain access site: RIGHT pleural fluid Medications to discontinue (and days): Aspirin x 3 days Labs: [obtain per CT protocol] General anesthesia required: [no] Buffy Diaz RN - 06/17/2014 4:58 PM EST VIR NURSING DATABASE Name: CYN MASTERSON Date of : 1955 AGE 59 y.o. Address: [address] [address] Phone: There are no phone numbers on file. Mobile: Telephone Information: Referring Provider: Mendy Talbot Reason for Visit: CT guided R sided diagnostic thoracentesis Assessment/Plan: Patient Position: At discretion of in file operator Biopsy/drain access site: RIGHT pleural fluid [...] informed this patient that they require a company truck driver to drive them home after this procedure. In the absence of a company truck driver, IR will not be able [...] guided aspiration of right pleural effusion Acc#: [id number] Indication for Procedure: right pleural effusion Procedure [...] Component Value Ref Test Analysis Performed At [facility] Range Method Time Signature Anaerobic CERNER Culture ? Patient Name: CYN MASTERSON ?Ordered By: MICHELE E[place]MAN ? MR#: [id number] ?LOC: ??3ZC ? /Sex: ??1955 (59 years), [...] Organization Address City/State/[place] [address] ARNAV VideoJaxMANDAIUM Body fluid culture (06/20/2014 1:30 PM EST) Component Value Ref Test Analysis Performed At [facility] Range Method Time Signature Body Fluid CERNER Culture ? Patient Name: CYN MASTERSON ?Ordered By: MICHELE EASTMAN ? MR#: [id number] ?LOC: ??3ZC ? /Sex: ??1955 (59 years), [...] Organization Address City/State/[place] [address] CERNER MILLENNIUM Calcofluor White Stain (06/20/2014 1:30 PM EST) Component Value Ref Test Analysis Performed At [facility] gist Range Method Time Signature Calcofluor CERNER White Stain ? Patient Name: CYN MASTERSON ?Ordered By: MICHELE EASTMAN ? MR#: [id number] ?LOC: ??3ZC ? /Sex: ??1955 (59 years), [...] Organization Address City/State/[place] [address] ARNAV BAKER Fungus culture (06/20/2014 1:30 PM EST) Component Value Ref Test Analysis Performed At [facility] Range Method Time Signature Fungus CERNER Culture ? Patient Name: CYN MASTERSON ?Ordered By: MICHELE EASTMAN ? MR#: [id number] ?LOC: ??3ZC ? /Sex: ??1955 (59 years), [...] Organization Address City/State/[place] [address] [facility] CT Thoracentesis (06/20/2014 1:28 PM EST) Anatomical [...] guided aspiration of right pleural effusion Acc#: [id number] Indication for Procedure: right pleural effusion Procedure [...] guided aspiration of right pleural effusion Acc#: [id number] Indication for Procedure: right pleural effusion Procedure [...] Routine documented in this encounter Care Teams General Technician Relationship Specialty Start Date End Date Sunitha Trotter MD PCP - General 07/07/10 02/18/[address] [place] [address] documented as of this encounter
--- OUTSIDE RECORDS SUMMARY | 2022-05-03 09:11 | XMS_ITS | Encounter Summary ---
:1955 Author Organization [facility] [place] [address] Care Team Providers Name Role Phone Sunitha Milligan MD Primary Care Provider Reason for Referral Consultation (Routine) - Complete - Unable to Contact Patient Specialty Diagnoses / Procedures Referred By Contact Refer red To Contact Pain Management Diagnoses Other chest pain Padmini Lozano MD [facility] 3d [facility] D [facility] PULMONARY [address] [address] Fax: Referral ID Status Reason Start Expiration Visits Visits Date Date Requested Authorized [id number] Complete - Consult, 11/08/2014 11/08/2015 3 3 Unable to Test & Contact Treat Patient Reason for Visit Reason Comments Follow-up Encounter Details Date Type Department Care Team Description 11/08/2014 Follow[place]Up Pul[place] [place] [facility] [place], PFT Other chest pain; [facility] Padmini Rico MD [facility] [place] [address] [place] [address] Social History Tobacco Use Types Packs/Day [...] this box is checked, you need to turkey picker a prescription at your pharmacy. Important Things You Talked About With Your Doctor You will hear from pain service regarding appointment. Communication With Your Local Health Care Providers The [facility] medical record system allows for electronic [...] effusion documented in this encounter Care Teams Divinity Professor Relationship Specialty Start Date End Date Sunitha Milligan MD PCP - General 07/07/10 02/18/16 [address] [place] [address] documented as of this encounter
--- OUTSIDE RECORDS SUMMARY | 2022-05-03 09:11 | XMS_ITS | Encounter Summary ---
:1955 Author Organization [facility] [place] [address] Care Team Providers Name Role Phone Sunitha Milligan MD Primary Care Provider Encounter Details Date Type Department Care Team Description 06/11/[address] Scan [facility], DR VICTOR [place] [address] Social History Tobacco Use Types Packs/Day [...] effusion documented in this encounter Care Teams Emergency Services Dispatcher Relationship Specialty Start Date End Date Sunitha Milligan MD PCP - General 07/07/10 02/18/[address] [place] [address] documented as of this encounter
--- OUTSIDE RECORDS SUMMARY | 2022-05-03 09:11 | XMS_ITS | Encounter Summary ---
:1955 Author Organization [facility] [place] [address] Care Team Providers Name Role Phone Sunitha Milligan MD Primary Care Provider Reason for Referral Surgical (Routine) - Closed Specialty Diagnoses / Procedures Referred By Contact Refer red To Contact Thoracic Surgery Diagnoses Chronic chest pain Hemothorax Michele [place] MD [facility] Thoracic Surg [address] [place] [address] [place] [address] [place] [address] Fax: Referral ID Status Reason Start Date Expiration Date Visits V isits Requested Authorized [id number] Closed Specialty 09/20/2014 09/20/2015 1 1 Service Requested Reason for Visit Reason Comments Follow-up Encounter Details Date Type Department Care Team Description 09/20/2014 Follow-Up Pulmonology at [facility] Michele [place] DOE (dyspnea on exertion); [facility] Chronic chest pain; [facility] [place] [address] PULMONARY MEDICI [place], [place] [address] (Wo rk) Social History Tobacco [...] this box is checked, you need to continuous pickling line pickler a prescription at your pharmacy. Important Things [...] CYN A ? (Age): 1955(59) Med Rec#: ?[id number] ? Sex: ?F ? Site Loc: ?[facility] ? Ht / Wt: ??161(cm)/175(kg) Pt. Loc: ? Echo Lab ? BSA: ?2.8 Study Date: ?11/08/2014 ? Pt. Type: Outpatient Tape: ? Referring: Michele [place] Manager Customs: Rosemarie Degroot Diagnosis: ??Dyspnea (786.09) CPT Code(s): ??Echo Full (98003), ??Spec tral Doppler (29121), ??Color Doppler (87965), ??Optison (05463AE), Indication(s):Rhythm: HR ?BP ?153/73 ?? SUMMARY: 1. [...] ? Mid-Inferior ?Normal ? Mid-Inferoseptal ?Normal ? [place]-Septal ? Normal ? [place]-Anterior ? Normal ? [place]-Lateral ?Normal ? [place]-Inferior ? Normal ? [place]-Tip ?Normal ? Chambers ?Value ?Units (Range) ? [...] 4:02 Images reviewed and interpretation verif ied [facility] Cardiac Ultrasound Laboratory Procedure Note Jorge Mckeon MD - 11/08/2014Format ting of this note might be different from the original. Procedure: Transthoracic Echocardiogram Patient: JOHAN CASTANEDA(Age): [birth year](59) Med Rec#: [id number] Sex: F Site Loc: [facility] Ht / Wt: 161(cm)/175(kg) Pt. Loc: Echo Lab BSA: 2.8 Study Date: 11/08/2014 Pt. Type: Outpati ent Tape: Referring: Michele [place] Manager Customs: Rosemarie Degroot Diagnosis: Dyspnea (786.09) CPT Code(s): Echo Full (32162), Spectral Doppler (51540), Color Doppler (49513), Optison (62343CK), Indication(s):Rhythm: HR BP 153/73 SUMMARY: 1. Technically [...] Normal Mid-Posterolateral Normal Mid-Inferior Normal Mid-Inferoseptal Normal [place]-Septal Normal [place]-Anterior Normal [place]-Lateral Normal [place]-Inferior Normal [place]-Tip Normal Chambers Value Units (Range) IVSd 2D [...] 16:24:02 Images reviewed and interpretation song olea [facility] Cardiac Ultrasound Laboratory Michele [place] MD ECHO [...] y documented in this encounter Care Teams Locomotive Engineer Diesel Relationship Specialty Start Date End Date Sunitha Milligan MD PCP - General 07/07/10 02/18/16 [address] [place] [address] documented as of this encounter
--- OUTSIDE RECORDS SUMMARY | 2022-05-03 09:11 | XMS_ITS | Encounter Summary ---
:1955 [place] [address] Care Team Providers Name Role Phone Sunitha Milligan MD Primary Care Provider Encounter Details Date Type Department Care Team Description 11/08/2014 Hospital Encounter Non-Invasive FRY (dysp nishi on Cardiology Lab Margy lee ) [place] [address] Social History Tobacco Use Types Packs/Day [...] CYN A ? (Age): 1955(59) Med Rec#: ?[id number] ? Sex: ?F ? Site Loc: ?[facility] ? Ht / Wt: ??161(cm)/175(kg) Pt. Loc: ? Echo Lab ? BSA: ?2.8 Study Date: ?11/08/2014 ? Pt. Type: Outpatient Tape: ? Referring: Padmini Lozano Maxillofacial Surgeon: Rosemarie Degroot Diagnosis: ??Dyspnea (786.09) CPT Code(s): ??Echo Full (44189), ??Spec tral Doppler (82728), ??Color Doppler (79837), ??Optison (54595KU), Indication(s):Rhythm: HR ?BP ?153/73 ?? SUMMARY: 1. [...] ? Mid-Inferior ?Normal ? Mid-Inferoseptal ?Normal ? [place]-Septal ? Normal ? [place]-Anterior ? Normal ? [place]-Lateral ?Normal ? [place]-Inferior ? Normal ? [place]-Tip ?Normal ? Chambers ?Value ?Units (Range) ? [...] Valves ?Value ?Units (Range) ? TR peak jayoln ? 2.3 ?m/sec ? This report has been electronically sign ed by: _ Jorge Mckeon. ? 11/08/2014 16:2 4:02 Images reviewed and interpretation verif ied [facility] Cardiac Ultrasound Laboratory Procedure Note Jorge Mckeon MD - 11/08/2014Format ting of this note might be different from the original. Procedure: Transthoracic Echocardiogram Patient: JOHAN Magana DOB(Age): [birth year](59) Med Rec#: [id number] Sex: F Site Loc: [facility] Ht / Wt: 161(cm)/175(kg) Pt. Loc: Echo Lab BSA: 2.8 Study Date: 11/08/2014 Pt. Type: Outpati ent Tape: Referring: Padmini Lozano Maxillofacial Surgeon: Rosemarie Degroot Diagnosis: Dyspnea (786.09) CPT Code(s): Echo Full (58499), Spectral Doppler (21156), Color Doppler (39110), Optison (07927PF), Indication(s):Rhythm: HR BP 153/73 SUMMARY: 1. Technically [...] Normal Mid-Posterolateral Normal Mid-Inferior Normal Mid-Inferoseptal Normal [place]-Septal Normal [place]-Anterior Normal [place]-Lateral Normal [place]-Inferior Normal [place]-Tip Normal [place] Value Units (Range) IVSd 2D [...] 16:24:02 Images reviewed and interpretation vercaryl olea [facility] Cardiac Ultrasound Laboratory Padmini Lozano MD ECHO [...] Routine documented in this encounter Care Teams Dredge Pipe Operator Relationship Specialty Start Date End Date Sunitha Milligan MD PCP - General 07/07/10 02/18/16 [address] [place] [address] documented as of this encounter
--- OUTSIDE RECORDS SUMMARY | 2022-05-03 09:11 | XMS_ITS | Encounter Summary ---
:1955 [place] [address] Care Team Providers Name Role Phone Alphonso Murphy MD Primary Care Provider [phone] Encounter Details Date Type Department Care Team Description 01/15/2017 Hospital Encounter Radiology Library at [facility], Herbert Salcido [facility] [place] [address] [facility] MEDICINE [phone] [place], [place] [address] (Wo rk) Social History Tobacco [...] by Each Nare 0 11/1305/21/2019 50 mcg/actuation [place], route daily. Suspension furosemide (LASIX) 40 Take [...] Time Received Time / Laterality Volume Narrative [facility] - 01/15/2017 11:09 PM EDT This exam is for storage only and is aut o-finalizing. Nakul Garland MD IMG FILM LIBRARY ORDERABLES Performing Organization Address City/State/ZIP Code Phon e Number [place], [place] documented in this encounter Visit Diagnoses Diagnosis Pain Generalized pain documented in this encounter Care Teams Claim Manager Relationship Specialty Start Date End Date Alphonso Murphy MD PCP - General Family Medicine 02/19/[address] [place] [address] documented as of this encounter
--- OUTSIDE RECORDS SUMMARY | 2022-05-03 09:11 | XMS_ITS | Encounter Summary ---
:1955 Author Organization [facility] [place] [address] Care Team Providers Name Role Phone Alphonso Murphy MD Primary Care Provider [phone] Reason for Referral Diagnostic Test (Routine) - Closed Specialty Diagnoses / Procedures Referred By Contact Refer red To Contact Radiology Diagnoses Chest pain, unspecified type Alphonso Murphy MD [facility] Rad Ct Scan Procedures CT Chest Pulmonary Embolism With Contrast [address] [place], [place] [address] [place] [address] Phone: Referral ID Status Reason Start Date Expiration Date Visits V isits Requested Authorized [id number] Closed Specialty 02/17/2016 02/16/2017 1 1 Service Requested Reason for Visit Diagnostic Test (Routine) - Closed Specialty Diagnoses / Procedures Referred By Contact Refer red To Contact Radiology Diagnoses Chest pain, unspecified type Alphonso Murphy MD [facility] Rad Ct Scan Procedures CT Chest Pulmonary Embolism With Contrast [address] [place] [address] [place] [address] Phone: Referral ID Status Reason Start Date Expiration Date Visits V isits Requested Authorized [id number] Closed Specialty 02/17/2016 02/16/2017 1 1 Service Requested Encounter Details Date Type Department Care Team Description 02/19/[address] [facility] [place] [facility] Alphonso [place] [facility] MD Selene unspecified type Drive [address] [place] [place] [address] [address] [place], [place] [phone] [address] Social History Tobacco Use Types Packs/Day Years [...] Routine documented in this encounter Care Teams Mixing And Dispensing Supervisor Relationship Specialty Start Date End Date Alphonso Murphy MD PCP - General Family Medicine 02/19/[address] [place] [address] documented as of this encounter
--- OUTSIDE RECORDS SUMMARY | 2022-05-03 09:11 | XMS_ITS | Encounter Summary ---
:1955 Author Organization [place] [address] Care Team Providers Name Role Phone Sunitha Trotter MD Primary Care Provider Reason for Visit Reason Comments Advice Only right chest wall pain after fall Encounter Details Date Type Department Care Team Description 10/08/2014 Office Visit Hematology and CLINIC, DR VICTOR Pleural ef fusion on right; Oncology at [facility] Shahram Sheehan, DO [address] [place] [address] Morbid obesity; [facility] Sunny Mota MD [facility] [place] [address] [place] [address] Social History Tobacco Use Types [...] 10/08/2014 Service: Thoracic Surgery Place of Service: [address] [place] [address] Attending: Dr. Sunny Mota Patient Name: Radha [...] resolved by the CXR on 09/17/2014. Her in mold coater, Dr. Lozano, referred her to Thoracic surgery [...] 3:13 PM CC: [address] / [facility] [address] REF: Padmini Lozano MD [facility] [place] [address] I have seen the patient and reviewed [...] pain documented in this encounter Care Teams Motor Driver Relationship Specialty Start Date End Date Sunitha Trotter MD PCP - General 07/07/10 02/18/16 [address] [place], [place] [address] documented as of this encounter
--- OUTSIDE RECORDS SUMMARY | 2022-05-03 09:11 | XMS_ITS | Encounter Summary ---
:1955 Author Organization [facility] [place] [address] Care Team Providers Name Role Phone Sunitha Milligan MD Primary Care Provider Encounter Details Date Type Department Care Team Description 09/20/2014 Hospital Encounter [place] [facility] Pleural effusion [address] [place] [address] [place] [address] Social History Tobacco Use Types Packs/Day [...] documented in this encounter Care Teams Clinical Specialist Medical Device Relationship Specialty Start Date End Date Sunitha Milligan MD PCP - General 07/07/10 02/18/[address] [place] [address] documented as of this encounter
--- OUTSIDE RECORDS SUMMARY | 2022-05-03 09:11 | XMS_ITS | Encounter Summary ---
:1955 Author Organization [facility] [place] [address] Care Team Providers Name Role Phone Sunitha Milligan MD Primary Care Provider Encounter Details Date Type Department Care Team Description 07/16/[address] Scan at [facility], CONV Lung nodule [facility] Padmini Lozano MD [facility] [place] [address] [place] [address] Social History Tobacco Use Types Packs/Day [...] nodule documented in this encounter Care Teams Senior Web Engineer Relationship Specialty Start Date End Date Sunitha Milligan MD PCP - General 07/07/10 02/18/16 [address] [place] [address] documented as of this encounter
--- OUTSIDE RECORDS SUMMARY | 2022-05-03 09:11 | XMS_ITS | Encounter Summary ---
:1955 Author Organization [facility] [place] [address] Care Team Providers Name Role Phone Sunitha Milligan MD Primary Care Provider Encounter Details Date Type Department Care Team Description 06/11/2014 Orders Only Radiology Mendy Talbot, Pleural effusion [facility] [place] (Primary Dx) [place] [address] DIAGNOSTIC RADIOLOGY [place], [place] [address] Social History Tobacco Use Types [...] effusion documented in this encounter Care Teams [employer] Production Manager Relationship Specialty Start Date End Date Sunitha Milligan MD PCP - General 07/07/10 02/18/16 [address] [place] [address] documented as of this encounter
--- OUTSIDE RECORDS SUMMARY | 2022-05-03 09:11 | XMS_ITS | Encounter Summary ---
:1955 Author Organization [facility] [place] [address] Care Team Providers Name Role Phone Alphonso Murphy MD Primary Care Provider [phone] Reason for Visit Auth/Cert Specialty Diagnoses / Procedures Referred By Contact Refer red To Contact Diagnoses JODY (acute kidney injury) ACUTE RENAL FAILURE Referral ID Status Reason Start Date Expiration Date Visits Requ ested Visits Authorized [id number] 1 1 Encounter Details Date Type Department Care Team Description 01/16/2017 - [place] [address] Krunal Damico MD [facility] [place] [address] Hyperkalemia; 01/21/2017 Encounter [facility] Alvaro Law MD [facility] [place] [address] Hypotension, unspecified hypotension typ e; [facility] [place] [address] Obesity, unspecified obesity severity, u nspecified obesity type; [facility] Huan Morris MD [facility] [place] [address] JODY (acute kidney injury); Nakul Haley MD [facility] [place] [address] Pleural effusion on right; [place], [place] Musculoskeletal chest pain [id number] Social History Tobacco Use Types Packs/Day Years [...] Magana Young Patient Age: 61 y.o. Language: Liberian Race: White Ethnicity: Not nor Admit date: [...] please contact your inpatient physician through the [facility] Property Developer . Issues after hours and on [...] recent admission who presents in transfer from [facility] with new renal failure. ?? She was initially seen over 2 weeks ago at [facility] and reportedly admitted for SOB for [...] present to the ER. ?? At the [facility] ER, labs were repeated with Cr [...] doctor's office and seek medical attention immediately. Non-[facility] Follow-up Appointments: ?? PCP: Dr. Murphy, TuesdayJanuary 25 @ 11:20AM [facility] Follow-up Appointments: No future appointments. Your Inpatient Medical Team at [facility]: MD Imani Diez, [facility] For questions regarding issues relating to your hospitalization on the Hospital Medicine Service, please contact your inpatient physician through the [facility] Property Developer [phone]. Issues after hours and on weekends will be handled by the Hospitalist staff on-call. Your Primary Care Provider Alphonso Murphy MD [phone] General Instructions None Future Appointments and Orders Future Orders Complete By Expires Referral to Home Health - at DISCHARGE [GBN1419 CPT(R)] As directed Process Instructions: Scheduling Instructions: Comments: DOCUMENTATION FOR VNA SERVICES (INCLUDING THOSE PATIENTS WITH MEDICARE COVERAGE REQUIRING HOME VNA SERVICES AND/OR HOSPICE SERVICES) PATIENT'S LOCATION: Cyn Prado [address] [place] [phone] (home) Cell: Telephone Information: Berry Grower's Name: self In discussion with the attending physician, it is certified that this patient is under their care and that they, or a Nurse Practitioner,Clinical Nurse specialist or Physician Life Advisor who is working directly with them, had [...] for managing ADL's. HOME HEALTH CARE AGENCY: [facility] PHONE: [phone] FAX: [phone] Start of care: 24-48 hours post discharge [...] Alphonso Murphy MD [address] / [place] [address] [facility] agencies which cover the area of patient's residence have been reviewed, either verbally or in writing, and patient/family have chosen the home health care agency noted Questions: Agency name and contact information: [facility] Patient location post discharge: home What [...] doctor's office and seek medical attention immediately. Non-[facility] Follow-up Appointments: ?? PCP: Dr. Murphy, TuesdayJanuary 25 @ 11:20AM [facility] Follow-up Appointments: No future appointments. Your Inpatient Medical Team at [facility]: MD Imani Diez, [facility] For questions regarding issues relating to your hospitalization on the Hospital Medicine Service, please contact your inpatient physician through the [facility] Property Developer [phone]. Issues after hours and on weekends will be handled by the Hospitalist staff on-call. Your Primary Care Provider Alphonso Murphy MD [phone] documented in this encounter Medications at Time [...] by Each Nare 0 11/1305/21/2019 50 mcg/actuation [place], route daily. Suspension gabapentin (NEURONTIN) Take 200 [...] AVS reviewedwith nurse. Questions answered. Ambulated to [facility] with family. Alvaro Law MD - [...] spent >30 minutes (Day of Discharge Code 58304) involved in the final examination of the [...] Tomás Riddle PTA Inpatient Rehab Services Pager: [phone] Grecia Wang RN - 01/21/2017 11:37 AM EDT The patient/cash applications representative has been provided a list of Home Health Agencies/DME vendors which serve their preferred geographic area. A letter describing our affiliations was reviewed with them and theywere educated about their right to choose where referrals are placed. Patient requests referral to [facility] Expected date of discharge: today. Referral routed to the Supply Chain Design Manager for matching with agency/vendor and to provide any required information. Grecia Leiva RN - 01/21/2017 11:28 AM EDT Office of Care Management (OCM)-Building Illuminating Engineer discharge planning Building Illuminating EngineerGrecia Service:Ani Reviewed medical record and in rounds with,Charge/Resource RN, SPICE ROOM WORKER, and CM, PT and Hospitalist. Cyn Prado [...] Nurse updated. Resource Specialists updated. Grecia Wang Building Illuminating Engineer, Care Management [email or web address] phone: [phone] fax: [phone] Alvaro Law MD - 01/20/2017 6:08 PM [...] fellows interpretation Confirmed by fellow MD Geovanni, [facility] ([id number]) on 01/17/2017 11:15:43 AM Confirmed by MD Levy, Madan ([id number]) on 01/17/2017 5:42:15 PM QTCCALC 481 VASCULAR: [...] 1-2 days Team Pager(MD Coverage 07/03): # [phone] PCP: Alphonso Murphy MD [phone] Attestation: IPI Certification I certify that I am a D-H credentialed attending provider with admitting privileges and that the patient meets or has met medical necessity to require an inpatient IPI level of care meeting a minimum of two midnights or is on the [facility] inpatient only procedure list (status C) [...] appropriate/available. Tomás Riddle PTA Inpatient Rehab Services Pager:[phone] Liz Guillory OT - 01/20/2017 2:30 PM [...] OT needs present. Liz Guillory, OTR/L Pager #[phone] Martha Ontiveros RN - 01/19/2017 6:15 PM [...] interpretation Confirmed by fellow MD Geovanni, [facility] ([id number]) on 01/17/2017 11:15:43 AM Confirmed by MD Levy, Madan ([id number]) on 01/17/2017 5:42:15 PM QTCCALC 481 VASCULAR: [...] 1-2 days Team Pager( Coverage 07/03): # [phone] PCP: Alphonso Murphy MD [phone] Attestation: IPI Certification I certify that I am a D-H credentialed attending provider with admitting privileges and that the patient meets or has met medical necessity to require an inpatient IPI level of care meeting a minimum of two midnights or is on the [facility] inpatient only procedure list (status C) [...] was very re ceptive to this. This grant writer provided written and verbal education on general healthful nutrition, cooking tips for weight management, and portion sizes and examples of food groups. This grant writer explained how her meals should be compromised in regards to portion sizes of specific food groups, and encouraged snacks that were higher in protein. Pt had no additional questions or concerns at this time, contact information provided. Nutrition to follow. CANDIDO Flor Pager [phone] Сергей Abreu RCP - 01/19/2017 12:07 AM EDT DATA ASSISTANT NIV Note NIV Settings: NIV Mode: BiPAP [...] w/ Dr. Keely Whaley, Nephrology Fellow Pager -[phone] Renal Attending: The patient was examined together [...] 01/18/17 0800 Gross per 24 hour Intake 68824 ml Output 77948 ml Net -460 ml Infusions: Norepi 6 [...] w/ Dr. Keely Whaley, Nephrology Fellow Pager -[phone] Renal Attending: The patient was examined together [...] Marcos E - 01/17/2017 10:01 AM EDT Pie Dough Roller Encounter Note Patient Name: Cyn Prado : [id number] MR#: [id number] Admit Date: 01/16/2017 12:35 AM Hospital Day 1 day Narrative: Cyn was by herself in the room when I entered. She said she had had family visiting yesterday. Merariisseemed tired but in good spirits. She was happy to talk with a proposal editor. Our conversation centered around her medical problems and her love of her family. It was clear that Cyn' children and grandchildren were a major source of hillary and meaning for her. She is happy to have one of her sons living at home with her. Assessment: Cyn identified herself as spiritual but not episcopalian. She said she had grown up watching [...] sleep apnea who received recent care at [facility] for dyspnea and Pulmonary Emboli (Jay WYLIE). Transferred from [facility] for acute onset renal failure. Transferred [...] 22.1, BE -3 Per patient request and MACHINE CLIPPER Order Patient placed on Home unit at 2327- Home settings/unit and home O2 01/16/17 2327 Non Invasive Ventilation Data NIV Mode BiPAP NIV Settings O2 Bleed In (LPM) 5 L/min (home flow) IPAP (cmH20) 23 (home settings) EPAP (cmH20) 19 (home settings) NIV Interface Comment Home full face mask Roslyn Obrien RN - 01/16/2017 6:37 AM EDT Patient Name:Cyn Prado [facility] Telemetry Note Diagnosis r/t telemetry: Hyperkalemia Subjective: [...] PE, diastolic heart failure who transferred from [facility], now transferring to the ICU with renal failure, AMS and hypotension. HPI: Cyn Prado is a 61 y.o. female with the above pmhx who was recently hospitalized at [facility] for 3 days due to a newly diagnosed pulmonary embolism and COPD/diastolic heart failure exacerbation. Patient was discharged on enoxaparin on 01/13 with a rising Cr. Once at home she continued to be not feeling well, have malaise and also developed a mild confusion. On 01/15 she presented back to the ED @ [facility] with hemoptysis and hyperkalemia in the setting of a JODY,Cr >5 and BUN >120. [facility] hospitalitis service was consulted for [...] PE, diastolic heart failure who transferred from [facility] to the hospitalitis service with renal [...] 17, 2017 Critical Care Green Team (pager [phone]) Dr. Sloan is the attending of record [...] recent admission who presents in transfer from [facility] with new renal failure. She was initially seen over 2 weeks ago at [facility] and reportedly admitted for SOB for [...] to present to the ER. At the [facility] ER, labs were repeated with Cr [...] though limited by habitus. Pertinent Labs From [facility]: 12.9 14.7 H/H 264 124 86 [...] PE on enoxaparin with recent 2-week admissionto [facility] who presents with new renal failure. [...] by lisinopril. Still waiting for records from [facility] which should help in determining if this is the cause. A bedside US at the OSH did not show hydro though was technically limited d/t her habitus. It sounds like she is still making some urine though it is unclear how much so this will be monitored closely since she may easily go the wrong direction and potentially require dialysis. ?? F/u [facility] records ?? Start IVF ?? Continue [...] accumulated enoxaparin ?? PCP: Alphonso Murphy MD [phone] Nakul Oneal Garland Pager #[phone] Hospital Medicine IPI Certification I certify that I am a D-H credentialed attending provider with admitting privileges and that the patient meets or has met medical necessity to require an inpatient IPI level of care meeting a minimum of two midnights or is on the [facility] inpatient only procedure list (status C) [...] yes Patient location at time of insertion: [address] Procedure Comments: Isidoro De Leon MD [...] to the planned procedure. Hand Hygiene: The thread twister did perform hand hygiene prior to arterial [...] recent admission who presents in transfer from [facility] with new renal failure. Precautions/Restrictions: fall [...] Anticipated Discharge Disposition: home with assist Pager: [phone] LIZ GUILLORY OT 01/21/2017 Occupational Therapy Rehabilitation [...] 01/17/17 1307 01/16/17 2119 PHART 7.41 7.38 [id number] 26* 38 PO2ART 92 78* [id number] 16.2* 22.1 Microbiology: 01/16 BCx: NGTD 01/16 [...] status pending clinical course Imani Roman Edin [facility] M3, Internal Medicine Pager - [phone] Team Pager [phone] 01/20/2017 Plan of Care - Olga Anna RN - 01/20/2017 2:32 AM EDT Problem: Skin Integrity Impairment, Risk/Actual (Adult) Goal: Skin Integrity/Wound Healing Patient will demonstrate the desired outcomes by discharge/transition of care. Outcome: Ongoing (Interventions Implemented as Appropriate) 01/19/17 7772 Skin Integrity Impairment, Risk/Actual (Adult) Skin Integrity/Wound [...] recent admission who presents in transfer from [facility] with new renal failure. Staff communication/Mobility Recommendations: ?? Pt. To ambulate with supervision and RW Precautions/Restrictions: fall Anticipated Physical Therapy Frequency: 3-5 times/wk Anticipated Discharge Disposition: home Pager: [phone] RADHA LOCKETT, PT 01/20/2017 Inpatient Physical Therapy Problem: Acute Rehab Services Goal & Intervention Plan Goal: Bed Mobility Goal Stand Alone Therapy Goal Outcome: Ongoing (Interventions Implemented as Appropriate) 01/18/17 1556 Bed Mobility Goal Bed Mobility Goal, Date Established 01/18/17 Bed Mobility Goal, Time to Achieve 2 wks Bed Mobility Goal, Activity Type all bed mobility activities Bed Mobility Goal, [place] Level independent Bed Mobility Goal, Outcome Achieved goal ongoing Goal: Gait Training Goal Stand Alone Therapy Goal Outcome: Ongoing (Interventions Implemented as Appropriate) 01/18/17 1556 Gait Training Goal Gait Training Goal, Date Established 01/18/17 Gait Training Goal, Time to Achieve 2 wks Gait Training Goal, [place] Level independent Gait Training Goal, Assist Device [...] 2 wks Transfer Training Goal, Activity Type nkg-kc-wtsci/xzfls-nr-vcr;eir-ch-pdfst/qbkok-du-phj Transfer Train Goal, [place] Level independent Transfer Training Goal, Assist Device [...] recent admission who presents in transfer from [facility] with new renal failure. Staff communication/Mobility Recommendations: ?? Pt. To mobilize OOB with RW Precautions/Restrictions: fall Anticipated Physical Therapy Frequency: 3-5 times/wk Anticipated Discharge Disposition: home with home health Pager: [phone] RADHA LOCKETT, PT 01/19/2017 Inpatient Physical Therapy Problem: Acute Rehab Services Goal & Intervention Plan Goal: Bed Mobility Goal Stand Alone Therapy Goal Outcome: Ongoing (Interventions Implemented as Appropriate) 01/18/17 1556 Bed Mobility Goal Bed Mobility Goal, Date Established 01/18/17 Bed Mobility Goal, Time to Achieve 2 wks Bed Mobility Goal, Activity Type all bed mobility activities Bed Mobility Goal, [place] Level independent Bed Mobility Goal, Outcome Achieved goal ongoing Goal: Gait Training Goal Stand Alone Therapy Goal Outcome: Ongoing (Interventions Implemented as Appropriate) 01/18/17 1556 Gait Training Goal Gait Training Goal, Date Established 01/18/17 Gait Training Goal, Time to Achieve 2 wks Gait Training Goal, [place] Level independent Gait Training Goal, Assist Device [...] 2 wks Transfer Training Goal, Activity Type ewm-fu-fzlgt/rxfdm-ar-qcz;swo-jf-miizq/smgwt-zw-oew Transfer Train Goal, [place] Level independent Transfer Training Goal, Assist Device [...] SUMMARY: Pt alert and oriented x 4. PALA. Remains on Levo gtt and vaso gtt [...] above pmhx who was recently hospitalized at [facility] for 3 days due to a newly diagnosed pulmonary embolism and COPD/diastolic heart failure exacerbation. Patient was discharged on enoxaparin on 01/13 with a rising Cr. Once at home she continued to be not feeling well, have malaise and also developed a mild confusion. On 01/15 she presented back to the ED @ [facility] with hemoptysis and hyperkalemia in the setting of a JODY,Cr >5 and BUN >120. [facility] hospitalitis service was consulted for [...] Barrios would be surrogate decision maker per [facility] decision making law. Any patient receiving care at [facility] must abide by [place] law. The hierarchy for surrogate decision making [...] need for a family meeting or an key punch operator at this time. Current Functional Ability: pt [...] Medicare A, B, & D Secondary Insurance: [place] Medicaid. Prescription Coverage: yes, part D Preferred Pharmacy: [email or web address] in [place], [place]. Other: none. Primary Care Provider: Alphonso Murphy MD [phone] Patient/Caregiver Goals of Treatment: plan being determined. Pt currently remains on Levo @ 6 mcg/min. Vasopressin was stopped and DC'd as of 10:00 this morning. Potential Needs for Transition of Care: Rehab/SNF: to be determined but likely will require a stay in rehab after DC. [facility] though she does not really want to go there again. She'd rather go home though. Based on discussions with the multi-disciplinary healthcare team, the patient would benefit from SNFlevel of care at discharge. ?? I have met with the patient/cash applications representative to discuss discharge planning needs. I have provided the [facility], Office of Care Management letter from the Coding Compliance Auditor pertaining to rehab referrals. I have also provided a letter describing our affiliations within the [facility] and educated them about their right to choose where referrals are placed. ?? I reviewed the different levels of rehab including SNF, swing, acute and LTAC with the patient/cash applications representative. ?? The patient/cash applications representative has been provided a list of facilities within their preferred geographic area. ?? I have requested that the patient/cash applications representative provide at least three choices for referral. ?? The patient/cash applications representative have [facility] [address] [place] [address] ?? Expected date of discharge: to be determined. Note routed to Supply Chain Design Manager who will communicate referrals to facilities and provide any required information. Home Health: to be determined. Would like [facility] if DC'd with home health. DME: currently [...] and assist with transition of care planning. Building Illuminating Engineer Omar Zamarripa RN, BSN Pager #[phone] Plan of Care - Azucena Jennings RN [...] w/ Dr. Keely Isabel Nephrology Fellow Pager -[phone] Renal Attending: The patient was examined together [...] Name Priority Date/Time Associated Diagnosis Comme nts FIELD MECHANICAL METER TESTER SCAN 01/22/2017 12:00 Res ults for this [...] STAT 01/16/2017 9:45 Results f or this ([facility] PM EDT procedure are i n the [...] documented in this encounter Results SCAN DOC: FIELD MECHANICAL METER TESTER (01/22/2017 12:00 AM EDT) Narrative 01/22/2017 12:00 AM EDT This result has an attachment that is no t available. Ordered by an unspecified provider. Scanning Provider MEDIA MGR SCAN EXT ORDR/RSLT Green Tube HOLD (01/21/2017 8:31 AM EDT) P athologist Signature Green Hold Sample in [facility]. [facility] Specimen Anatomical Collection Method Collection Time Receive d Time (Source) Location / / Volume Laterality Blood specimen Venous Draw / 01/21/2017 8:31 AM 2016 8:44 (specimen) Unknown EDT AM EDT Alvaro Law MD CHEMISTRY ORDERABLES Performing Organization Address City/State/[place] [address] (ABNORMAL) Differential, Automated (01/21/2017 8:31 AM EDT) Patholo gist Method Time Signature Neutrophils % 72.5 % [facility] Neutr Abs (ANC) 9.62 (H) 1.70 - [facility] 6.10 [facility] x10(3)/[facility] L LABORATORY Lymphocytes % 16.3 % [facility] Lymphocytes Abs 2.2 0.9 - 3.2 [facility] x10(3)/[facility] LABORATORY Monocytes % 6.6 % [facility] Monocyte Abs 0.9 0.3 - 0.9 [facility] x10(3)/[facility] LABORATORY Eosinophils % 2.9 % [facility] Eosinophils Abs 0.4 0.0 - 0.4 [facility] x10(3)/[facility] LABORATORY Basophils % 0.2 % [facility] Basophils Abs 0.0 0.0 - 0.1 [facility] x10(3)/[facility] LABORATORY Immature Gran % 1.50 % [facility] Comment: Immature granulocytes(IG's)percentage an d absolute count will include metamyelocytes, myelocytes, and promyelo cytes. Blood smears from CBCs yielding IG's will be scanned manually for concor dance. If this scan disagrees with the automated IG or if promyelocytes are not ed, a manual differential will be performed. [place] Gran Abs 0.20 (H) 0.00 - 0.04 x10(3)/[facility] LABORATORY Specimen Anatomical Collection Method Collection Time Receive d Time (Source) Location / / Volume Laterality Blood specimen 01/21/2017 8:31 AM 017 8:44 (specimen) EDT AM EDT Resulting Agency Comment Spec In Lab Alvaro Law MD HEMATOLOGY ORDERABLES Performing Organization Address City/State/[place] [address] (ABNORMAL) Hemogram (01/21/2017 8:31 AM EDT) Analysis Performed At Patho logist Time Signature WBC 13.3 (H) 4.0 - 9.5 [facility] x10(3)/[facility] LABORATORY RBC 3.46 (L) 4.00 - [facility] 5.21 [facility] x10(6)/[facility] LABORATORY Hemoglobin 10.1 (L) 11.7 - [facility] 15.5 gm/dL [facility] Hematocrit 30.6 (L) 35.7 - [facility] 45.8 % [facility] MCV 88.4 82.6 - [place] 94.[address] [facility] LABORATORY MCH 29.2 27.1 - [place] 32.0 pg [facility] MCHC 33.0 31.7 - [place] 35.0 gm/dL [facility] Platelets 240 145 - 357 [place] x10(3)/[facility] LABORATORY RDWSD 46.1 (H) 37.0 - [place] 46.[address] [facility] LABORATORY RDWCV 14.3 (H) 11.5 - [place] 14.1 % [facility] MPV 10.7 7.6 - 12.9 [place] [facility] LABORATORY nRBC % Auto 0.0 % [facility] nRBC Abs Auto 0.000 0.000 - [place] 0.000 [facility] x10(3)/[facility] LABORATORY Specimen Anatomical Collection Method Collection Time Receive d Time (Source) Location / / Volume Laterality Blood specimen 01/21/2017 8:31 AM 017 8:44 (specimen) EDT AM EDT Resulting Agency Comment Spec In Lab Alvaro Law MD HEMATOLOGY ORDERABLES Performing Organization Address City/State/ZIP Code Phon e Number [address] Phosphorus (01/21/2017 5:07 AM EDT) P athologist Signature Phosphorus 3.2 2.5 - 4.5 [place] mg/dL [facility] LABORATORY Comment: result rechecked-AFP Specimen Anatomical Collection Method Collection Time Receive d Time (Source) Location / / Volume Laterality Blood specimen 01/21/2017 5:07 AM 017 5:25 (specimen) EDT AM EDT Resulting Agency Comment Spec In Lab Alvaro Law MD CHEMISTRY ORDERABLES Performing Organization Address City/State/ZIP Code Phon e Number [address] Magnesium (01/21/2017 5:07 AM EDT) P athologist Signature Magnesium 0.74 0.69 - 1.07 [place] mmol/L [facility] LABORATORY Specimen Anatomical Collection Method Collection Time Receive d Time (Source) Location / / Volume Laterality Blood specimen 01/21/2017 5:07 AM 017 5:25 (specimen) EDT AM EDT Resulting Agency Comment Spec In Lab Alvaro Law MD CHEMISTRY ORDERABLES Performing Organization Address City/State/ZIP Code Phon e Number [facility] [place] [address] (ABNORMAL) Basic Metabolic Panel (non-fasting) (01/21/2017 5:07 AM EDT) athologist Signature Glucose Lvl 92 65 - 199 [facility] mg/dL [facility] LABORATORY Comment: Diabetes: >=200 mg/dL plus symp toms BUN 10 8 - 18 mg/dL [facility] LABORATORY Creatinine 0.66 (L) 0.70 - 1.20 mg/dL [facility] LABORATORY Comment: Please note that the pediatric reference intervals supplied above were not validated at [facility]. Results from pediatri c patients [...] Chloride 96 (L) 98 - 107 mmol/L [facility] LABORATORY CO2 29 22 - 31 mmol/L [facility] LABORATORY Anion Gap 13 5 - 15 mmol/L [facility] LABORATORY Calcium 8.5 8.5 - 10.5 mg/dL [facility] LABORATORY Estimated GFR >60 >=60 [facility] LABORATORY Comment: This estimated GFR (eGFR) [...] the following links into your internet browser. [email or web address] [email or web address] Specimen Anatomical Collection Method Collection Time Receive d Time (Source) Location / / Volume Laterality Blood specimen 01/21/2017 5:07 AM 017 5:25 (specimen) EDT AM EDT Resulting Agency Comment Spec In Lab Alvaro Law MD CHEMISTRY ORDERABLES Performing Organization Address City/State/ZIP Code Phon e Number [place] [id number]OS[address] (ABNORMAL) Differential, Automated (01/20/2017 11:15 AM EDT) [facility] Method Time Signature Neutrophils % 71.0 % [facility] LABORATORY Neutr Abs (ANC) 10.20 (H) 1.70 - [facility] 6.10 [facility] x10(3)/[facility] LABORATORY Lymphocytes % 16.4 % [facility] LABORATORY Lymphocytes Abs 2.4 0.9 - 3.2 [facility] x10(3)/[facility] LABORATORY Monocytes % 9.1 % [facility] LABORATORY Monocyte Abs 1.3 (H) 0.3 - 0.9 [facility] x10(3)/[facility] LABORATORY Eosinophils % 2.4 % [facility] LABORATORY Eosinophils Abs 0.3 0.0 - 0.4 [facility] x10(3)/[facility] LABORATORY Basophils % 0.2 % [facility] LABORATORY Basophils Abs 0.0 0.0 - 0.1 [facility] x10(3)/[facility] LABORATORY Immature Gran % 0.90 % [facility] LABORATORY Comment: Immature granulocytes(IG's)percentage an d absolute count will include metamyelocytes, myelocytes, and promyelo cytes. Blood smears from CBCs yielding IG's will be scanned manually for concor dance. If this scan disagrees with the automated IG or if promyelocytes are not ed, a manual differential will be performed. Surekha Gran Abs 0.13 (H) 0.00 - 0.04 x10(3)/[facility] LABORATORY Specimen Anatomical Collection Method Collection Time Receive d Time (Source) Location / / Volume Laterality Blood specimen 01/20/2017 11:15 7 (specimen) AM EDT 11:20 AM EDT Resulting Agency Comment Spec In Lab Alvaro Law MD HEMATOLOGY ORDERABLES Performing Organization Address City/State/[place] [address] (ABNORMAL) Hemogram (01/20/2017 11:15 AM EDT) Analysis Performed At Patho logist Time Signature WBC 14.4 (H) 4.0 - 9.5 [facility] x10(3)/[facility] LABORATORY RBC 2.93 (L) 4.00 - [facility] 5.21 [facility] x10(6)/[facility] LABORATORY Hemoglobin 8.7 (L) 11.7 - [facility] 15.5 gm/dL [facility] LABORATORY Hematocrit 25.2 (L) 35.7 - [facility] 45.8 % [facility] LABORATORY MCV 86.0 82.6 - [facility] 94.[address] [facility] LABORATORY MCH 29.7 27.1 - [facility] 32.0 pg [facility] LABORATORY MCHC 34.5 31.7 - [facility] 35.0 gm/dL [facility] LABORATORY Platelets 184 145 - 357 [facility] x10(3)/[facility] LABORATORY RDWSD 44.6 37.0 - [facility] JAY 46.[address] [facility] LABORATORY RDWCV 14.2 (H) 11.5 - [facility] JAY 14.1 % [facility] LABORATORY MPV 11.2 7.6 - 12.9 [facility] nRBC % Auto 0.0 % [facility] LABORATORY nRBC Abs Auto 0.000 0.000 - [place] 0.000 [facility] x10(3)/[facility] LABORATORY Specimen Anatomical Collection Method Collection Time Receive d Time (Source) Location / / Volume Laterality Blood specimen 01/20/2017 11:15 7 (specimen) AM EDT 11:20 AM EDT Resulting Agency Comment Spec In Lab Alvaor Law MD HEMATOLOGY ORDERABLES Performing Organization Address City/[facility]/ZIP Code Phon e Number [address] (ABNORMAL) Phosphorus (01/20/2017 10:30 AM EDT) athologist Signature Phosphorus 2.4 (L) 2.5 - 4.5 [facility] mg/dL [facility] LABORATORY Specimen Anatomical Collection Method Collection Time Receive d Time (Source) Location / / Volume Laterality Blood specimen 01/20/2017 10:30 7 (specimen) AM EDT 10:43 AM EDT Resulting Agency Comment Spec In Lab Alvaro Law MD CHEMISTRY ORDERABLES Performing Organization Address City/[facility]/ZIP Code Phon e Number [address] (ABNORMAL) Magnesium (01/20/2017 10:30 AM EDT) athologist Signature Magnesium 0.59 (L) 0.69 - 1.07 [facility] mmol/L [facility] LABORATORY Specimen Anatomical Collection Method Collection Time Receive d Time (Source) Location / / Volume Laterality Blood specimen 01/20/2017 10:30 7 (specimen) AM EDT 10:43 AM EDT Resulting Agency Comment Spec In Lab Alvaro Law MD CHEMISTRY ORDERABLES Performing Organization Address City/[facility]/ZIP [facility] [place] [address] (ABNORMAL) Basic Metabolic Panel (non-fasting) (01/20/2017 10:30 AM EDT) athologist Signature Glucose Lvl 106 65 - 199 [facility] mg/dL [facility] LABORATORY Comment: Diabetes: >=200 mg/dL plus symp toms BUN 14 8 - 18 mg/dL [facility] LABORATORY Creatinine 0.76 0.70 - 1.20 mg/dL [facility] LABORATORY Comment: Please note that the pediatric reference intervals supplied above were not validated at [facility]. Results from pediatri c patients [...] estions. Chloride 99 98 - 107 mmol/L [facility] LABORATORY CO2 28 22 - 31 mmol/L [facility] LABORATORY Anion Gap 11 5 - 15 mmol/L [facility] LABORATORY Calcium 8.4 (L) 8.5 - 10.5 mg/dL [facility] LABORATORY Estimated GFR >60 >=60 [facility] LABORATORY Comment: This estimated GFR (eGFR) [...] the following links into your internet browser. [email or web address] [email or web address] Specimen Anatomical Collection Method Collection Time Receive d Time (Source) Location / / Volume Laterality Blood specimen 01/20/2017 10:30 7 (specimen) AM EDT 10:43 AM EDT Resulting Agency Comment Spec In Lab Alvaro Law MD CHEMISTRY ORDERABLES Performing Organization Address City/State/[place] [address] POCT Glucose (01/19/2017 9:16 AM EDT) P athologist Signature POC Glucose 134 65 - 199 [facility] mg/dL [facility] LABORATORY Comment: Supplemental ranges: <140 mg/dL before meals <180 mg/dL all other times of the day Specimen Anatomical Collection Method Collection Time Receive d Time (Source) Location / / Volume Laterality Blood specimen 01/19/2017 9:16 AM 017 9:16 (specimen) EDT AM EDT Huan Morris MD POINT OF CARE TEST ORDERABLE S Performing Organization Address City/State/[place] [address] (ABNORMAL) Differential, Automated (01/19/2017 4:00 AM EDT) [facility] Method Time Signature Neutrophils % 66.2 % [facility] LABORATORY Neutr Abs (ANC) 8.22 (H) 1.70 - [facility] 6.10 [facility] x10(3)/[facility] LABORATORY Lymphocytes % 18.5 % [facility] LABORATORY Lymphocytes Abs 2.3 0.9 - 3.2 [facility] x10(3)/[facility] LABORATORY Monocytes % 11.4 % [facility] LABORATORY Monocyte Abs 1.4 (H) 0.3 - 0.9 [facility] x10(3)/[facility] LABORATORY Eosinophils % 2.6 % [facility] LABORATORY Eosinophils Abs 0.3 0.0 - 0.4 [facility] x10(3)/[facility] LABORATORY Basophils % 0.2 % [facility] LABORATORY Basophils Abs 0.0 0.0 - 0.1 [facility] x10(3)/[facility] LABORATORY Immature Gran % 1.10 % [facility] LABORATORY Comment: Immature granulocytes(IG's)percentage an d absolute count will include metamyelocytes, myelocytes, and promyelo cytes. Blood smears from CBCs yielding IG's will be scanned manually for concor dance. If this scan disagrees with the automated IG or if promyelocytes are not ed, a manual differential will be performed. Surekha Gran Abs 0.14 (H) 0.00 - 0.04 x10(3)/[facility] LABORATORY Specimen Anatomical Collection Method Collection Time Receive d Time (Source) Location / / Volume Laterality Blood specimen 01/19/2017 4:00 AM 06/07/2 017 4:19 (specimen) EDT AM EDT Resulting Agency Comment Spec In Lab Ramos Kemp APRN HEMATOLOGY ORDERABLES Performing Organization Address City/[facility]/ZIP Code [place] [address] (ABNORMAL) Hemogram (01/19/2017 4:00 AM EDT) Analysis Performed At Patho logist Time Signature WBC 12.4 (H) 4.0 - 9.5 [facility] JAY x10(3)/[facility] LABORATORY RBC 3.13 (L) 4.00 - [facility] JAY 5.21 [facility] x10(6)/[facility] LABORATORY Hemoglobin 9.1 (L) 11.7 - [facility] JAY 15.5 gm/dL [facility] LABORATORY Hematocrit 26.5 (L) 35.7 - [facility] 45.8 % [facility] LABORATORY MCV 84.7 82.6 - [facility] 94.[address] [facility] LABORATORY MCH 29.1 27.1 - [facility] 32.0 pg [facility] LABORATORY MCHC 34.3 31.7 - [place] 35.0 gm/dL [facility] LABORATORY Platelets 182 145 - 357 [facility] x10(3)/[facility] LABORATORY RDWSD 43.2 37.0 - [place] 46.[address] [facility] LABORATORY RDWCV 14.1 11.5 - [facility] JAY 14.1 % [facility] LABORATORY MPV 11.6 7.6 - 12.9 [facility] nRBC % Auto 0.0 % [facility] LABORATORY nRBC Abs Auto 0.000 0.000 - [place] 0.000 [facility] x10(3)/[facility] LABORATORY Specimen Anatomical Collection Method Collection Time Receive d Time (Source) Location / / Volume Laterality Blood specimen 01/19/2017 4:00 AM 017 4:19 (specimen) EDT AM EDT Resulting Agency Comment Spec In Lab Ramos Kemp APRN HEMATOLOGY ORDERABLES Performing Organization Address City/State/ZIP Code [place] [address] POCT Glucose (01/19/2017 4:00 AM EDT) athologist Signature POC Glucose 134 65 - 199 [place] mg/dL [facility] LABORATORY Comment: Supplemental ranges: <140 mg/dL before meals <180 mg/dL all other times of the day Specimen Anatomical Collection Method Collection Time Receive d Time (Source) Location / / Volume Laterality Blood specimen 01/19/2017 4:00 AM 017 4:00 (specimen) EDT AM EDT Huan Morris MD POINT OF CARE TEST ORDERABLE S Performing Organization Address City/[facility]/ZIP Code Phon e Number [address] (ABNORMAL) Phosphorus (01/19/2017 4:00 AM EDT) athologist Signature Phosphorus 1.5 (L) 2.5 - 4.5 [facility] JAY mg/dL [facility] LABORATORY Specimen Anatomical Collection Method Collection Time Receive d Time (Source) Location / / Volume Laterality Blood specimen 01/19/2017 4:00 AM 017 4:19 (specimen) EDT AM EDT Resulting Agency Comment Spec In Lab Alvaro Law MD CHEMISTRY ORDERABLES Performing Organization Address City/State/ZIP Code Phon e Number [address] Magnesium (01/19/2017 4:00 AM EDT) athologist Signature Magnesium 0.70 0.69 - 1.07 [place] mmol/L [facility] LABORATORY Specimen Anatomical Collection Method Collection Time Receive d Time (Source) Location / / Volume Laterality Blood specimen 01/19/2017 4:00 AM 017 4:19 (specimen) EDT AM EDT Resulting Agency Comment Spec In Lab Alvaro Law MD CHEMISTRY ORDERABLES Performing Organization Address City/[facility]/ZIP Code [place] [address] (ABNORMAL) Basic Metabolic Panel (non-fasting) (01/19/2017 4:00 AM EDT) athologist Signature Glucose Lvl 138 65 - 199 [facility] mg/dL [facility] LABORATORY Comment: Diabetes: >=200 mg/dL plus symp toms BUN 24 (H) 8 - 18 mg/dL [facility] LABORATORY Creatinine 1.00 0.70 - 1.20 mg/dL [facility] LABORATORY Comment: Please note that the pediatric reference intervals supplied above were not validated at [facility]. Results from pediatri c patients [...] Chloride 96 (L) 98 - 107 mmol/L [facility] LABORATORY CO2 27 22 - 31 mmol/L [facility] LABORATORY Anion Gap 12 5 - 15 mmol/L [facility] LABORATORY Calcium 8.2 (L) 8.5 - 10.5 mg/dL [facility] LABORATORY Estimated GFR 57 (L) >=60 [facility] LABORATORY Comment: This estimated GFR (eGFR) [...] the following links into your internet browser. [email or web address] [email or web address] Specimen Anatomical Collection Method Collection Time Receive d Time (Source) Location / / Volume Laterality Blood specimen 01/19/2017 4:00 AM 017 4:55 (specimen) EDT AM EDT Resulting Agency Comment Spec In Lab Huan Morris MD CHEMISTRY ORDERABLES Performing Organization Address City/State/ZIP Code Phon e Number [address] POCT Glucose (01/19/2017 12:08 AM EDT) athologist Signature POC Glucose 144 65 - 199 [facility]/dL [facility] LABORATORY Comment: Supplemental ranges: <140 mg/dL before meals <180 mg/dL all other times of the day Specimen Anatomical Collection Method Collection Time Receive d Time (Source) Location / / Volume Laterality Blood specimen 01/19/2017 12:08 7 (specimen) AM EDT 12:08 AM EDT Huan Morris MD POINT OF CARE TEST ORDERABLE S Performing Organization Address City/State/ZIP Code Phon e Number [address] POCT Glucose (01/18/2017 8:04 PM EDT) athologist Signature POC Glucose 188 65 - 199 [facility] mg/dL [facility] LABORATORY Comment: Supplemental ranges: <140 mg/dL before meals <180 mg/dL all other times of the day Specimen Anatomical Collection Method Collection Time Receive d Time (Source) Location / / Volume Laterality Blood specimen 01/18/2017 8:04 PM 017 8:04 (specimen) EDT PM EDT Huan Morris MD POINT OF CARE TEST ORDERABLE S Performing Organization Address City/State/ZIP Code [place] [address] (ABNORMAL) Basic Metabolic Panel (non-fasting) (01/18/2017 7:25 PM EDT) athologist Signature Glucose Lvl 151 65 - 199 [facility]dL [facility] LABORATORY Comment: Diabetes: >=200 mg/dL plus symp toms BUN 26 (H) 8 - 18 mg/dL [facility] LABORATORY Creatinine 0.92 0.70 - 1.20 mg/dL [facility] LABORATORY Comment: Please note that the pediatric reference intervals supplied above were not validated at [facility]. Results from pediatri c patients [...] estions. Chloride 99 98 - 107 mmol/L [facility] LABORATORY CO2 25 22 - 31 mmol/L [facility] LABORATORY Anion Gap 12 5 - 15 mmol/L [facility] LABORATORY Calcium 8.3 (L) 8.5 - 10.5 mg/dL [facility] LABORATORY Estimated GFR >60 >=60 [facility] LABORATORY Comment: This estimated GFR (eGFR) [...] the following links into your internet browser. [email or web address] [email or web address] Specimen Anatomical Collection Method Collection Time Receive d Time (Source) Location / / Volume Laterality Blood specimen 01/18/2017 7:25 PM 017 7:35 (specimen) EDT PM EDT Resulting Agency Comment Spec In Lab Huan Morris MD CHEMISTRY ORDERABLES Performing Organization Address City/State/[place] [address] POCT Glucose (01/18/2017 3:51 PM EDT) athologist Signature POC Glucose 132 65 - 199 [facility] mg/dL [facility] LABORATORY Comment: Supplemental ranges: <140 mg/dL before meals <180 mg/dL all other times of the day Specimen Anatomical Collection Method Collection Time Receive d Time (Source) Location / / Volume Laterality Blood specimen 01/18/2017 3:51 PM 017 3:51 (specimen) EDT PM EDT Huan Morris MD POINT OF CARE TEST ORDERABLE S Performing Organization Address City/State/[place] [address] (ABNORMAL) Basic Metabolic Panel (non-fasting) (01/18/2017 12:29 PM EDT) athologist Signature Glucose Lvl 131 65 - 199 [facility] mg/dL [facility] LABORATORY Comment: Diabetes: >=200 mg/dL plus symp toms BUN 27 (H) 8 - 18 mg/dL [facility] LABORATORY Creatinine 0.98 0.70 - 1.20 mg/dL [facility] LABORATORY Comment: Please note that the pediatric reference intervals supplied above were not validated at [facility]. Results from pediatri c patients [...] estions. Chloride 99 98 - 107 mmol/L [facility] LABORATORY CO2 22 22 - 31 mmol/L [facility] LABORATORY Anion Gap 13 5 - 15 mmol/L [facility] LABORATORY Calcium 7.9 (L) 8.5 - 10.5 mg/dL [facility] LABORATORY Estimated GFR 58 (L) >=60 [facility] LABORATORY Comment: This estimated GFR (eGFR) [...] the following links into your internet browser. [email or web address] [email or web address] Specimen Anatomical Collection Method Collection Time Receive d Time (Source) Location / / Volume Laterality Blood specimen 01/18/2017 12:29 7 (specimen) PM EDT 12:46 PM EDT Resulting Agency Comment Spec In Lab Huan Morris MD CHEMISTRY ORDERABLES Performing Organization Address City/[facility] Phon e Number [address] POCT Glucose (01/18/2017 12:05 PM EDT) P athologist Signature POC Glucose 139 65 - 199 [facility]/dL [facility] LABORATORY Comment: Supplemental ranges: <140 mg/dL before meals <180 mg/dL all other times of the day Specimen Anatomical Collection Method Collection Time Receive d Time (Source) Location / / Volume Laterality Blood specimen 01/18/2017 12:05 7 (specimen) PM EDT 12:05 PM EDT Huan Morris MD POINT OF CARE TEST ORDERABLE S Performing Organization Address City/[facility]/ZIP Code [place] [address] POCT Glucose (01/18/2017 7:45 AM EDT) P athologist Signature POC Glucose 169 65 - 199 [place] mg/dL [facility] LABORATORY Comment: Supplemental ranges: <140 mg/dL before meals <180 mg/dL all other times of the day Specimen Anatomical Collection Method Collection Time Receive d Time (Source) Location / / Volume Laterality Blood specimen 01/18/2017 7:45 AM 017 7:45 (specimen) EDT AM EDT Huan Morris MD POINT OF CARE TEST ORDERABLE S Performing Organization Address City/[facility]/ZIP Code Phon e Number [address] Vancomycin, trough (01/18/2017 5:00 AM EDT) P athologist Signature Vanc Trough 11.1 mg/L [facility] LABORATORY Comment: Therapeutic range for complicated [...] Organization Address City/State/ZIP Code Phon e Number [address] POCT Glucose (01/18/2017 4:04 AM EDT) athologist [facility] POC Glucose 187 65 - 199 [facility] mg/dL [facility] LABORATORY Comment: Supplemental ranges: <140 mg/dL before meals <180 mg/dL all other times of the day Specimen Anatomical Collection Method Collection Time Receive d Time (Source) Location / / Volume Laterality Blood specimen 01/18/2017 4:04 AM 017 4:04 (specimen) EDT AM EDT Huan Morris MD POINT OF CARE TEST ORDERABLE S Performing Organization Address City/State/ZIP Code Phon e Number [address] (ABNORMAL) Differential, Automated (01/18/2017 4:00 AM EDT) Patholo gist Method Time Signature Neutrophils % 85.6 % [facility] LABORATORY Neutr Abs (ANC) 13.17 (H) 1.70 - [facility] 6.10 [facility] x10(3)/[facility] LABORATORY Lymphocytes % 8.4 % [facility] LABORATORY Lymphocytes Abs 1.3 0.9 - 3.2 [facility] x10(3)/[facility] LABORATORY Monocytes % 4.7 % [facility] LABORATORY Monocyte Abs 0.7 0.3 - 0.9 [facility] x10(3)/[facility] LABORATORY Eosinophils % 0.1 % [facility] LABORATORY Eosinophils Abs 0.0 0.0 - 0.4 [facility] x10(3)/[facility] LABORATORY Basophils % 0.1 % [facility] LABORATORY Basophils Abs 0.0 0.0 - 0.1 [facility] x10(3)/[facility] LABORATORY Immature Gran % 1.10 % [facility] LABORATORY Comment: Immature granulocytes(IG's)percentage an d absolute count will include metamyelocytes, myelocytes, and promyelo cytes. Blood smears from CBCs yielding IG's will be scanned manually for concor dance. If this scan disagrees with the automated IG or if promyelocytes are not ed, a manual differential will be performed. Surekha Gran Abs 0.17 (H) 0.00 - 0.04 x10(3)/[facility] LABORATORY Specimen Anatomical Collection Method Collection Time Receive d Time (Source) Location / / Volume Laterality Blood specimen 01/18/2017 4:00 AM 017 4:10 (specimen) EDT AM EDT Resulting Agency Comment Spec In Lab Ramos Kemp APRN HEMATOLOGY ORDERABLES Performing Organization Address City/State/ZIP Code Phon e [place] [address] (ABNORMAL) Hemogram (01/18/2017 4:00 AM EDT) Analysis Performed At Patho logist Time Signature WBC 15.4 (H) 4.0 - 9.5 [facility] x10(3)/[facility] LABORATORY RBC 3.55 (L) 4.00 - [facility] 5.21 [facility] x10(6)/[facility] LABORATORY Hemoglobin 10.4 (L) 11.7 - [facility] 15.5 gm/dL [facility] LABORATORY Hematocrit 30.0 (L) 35.7 - [place] 45.8 % [facility] LABORATORY MCV 84.5 82.6 - [place] 94.[address] [facility] LABORATORY MCH 29.3 27.1 - [place] 32.0 pg [facility] LABORATORY MCHC 34.7 31.7 - [place] 35.0 gm/dL [facility] LABORATORY Platelets 198 145 - 357 [facility] x10(3)/[facility] LABORATORY RDWSD 42.5 37.0 - [place] 46.[address] [facility] LABORATORY RDWCV 13.6 11.5 - [place] 14.1 % [facility] LABORATORY MPV 11.3 7.6 - 12.9 [facility] LABORATORY nRBC % Auto 0.0 % [facility] LABORATORY nRBC Abs Auto 0.000 0.000 - [place] 0.000 [facility] x10(3)/[facility] LABORATORY Specimen Anatomical Collection Method Collection Time Receive d Time (Source) Location / / Volume Laterality Blood specimen 01/18/2017 4:00 AM 017 4:10 (specimen) EDT AM EDT Resulting Agency Comment Spec In Lab Ramos Kemp APRN HEMATOLOGY ORDERABLES Performing Organization Address City/State/ZIP Code Phon e Number [address] (ABNORMAL) Phosphorus (01/18/2017 4:00 AM EDT) P athologist Signature Phosphorus 2.4 (L) 2.5 - 4.5 [facility] LABORATORY Specimen Anatomical Collection Method Collection Time Receive d Time (Source) Location / / Volume Laterality Blood specimen 01/18/2017 4:00 AM 017 4:10 (specimen) EDT AM EDT Resulting Agency Comment Spec In Lab Alvaro Law MD CHEMISTRY ORDERABLES Performing Organization Address City/State/ZIP Code Phon e Number [address] Magnesium (01/18/2017 4:00 AM EDT) P athologist Signature Magnesium 0.71 0.69 - 1.07 [facility] mmol/L [facility] LABORATORY Specimen Anatomical Collection Method Collection Time Receive d Time (Source) Location / / Volume Laterality Blood specimen 01/18/2017 4:00 AM 017 4:10 (specimen) EDT AM EDT Resulting Agency Comment Spec In Lab Alvaro Law MD CHEMISTRY ORDERABLES Performing Organization Address City/State/[place] [address] (ABNORMAL) Basic Metabolic Panel (non-fasting) (01/18/2017 4:00 AM EDT) athologist Signature Glucose Lvl 188 65 - 199 [facility] mg/dL [facility] LABORATORY Comment: Diabetes: >=200 mg/dL plus symp toms BUN 38 (H) 8 - 18 mg/dL [facility] LABORATORY Creatinine 1.32 (H) 0.70 - 1.20 mg/dL [facility] LABORATORY Comment: Please note that the pediatric reference intervals supplied above were not validated at [facility]. Results from pediatri c patients [...] Chloride 94 (L) 98 - 107 mmol/L [facility] LABORATORY CO2 22 22 - 31 mmol/L [facility] LABORATORY Anion Gap 17 (H) 5 - 15 mmol/L [facility] LABORATORY Calcium 8.4 (L) 8.5 - 10.5 mg/dL [facility] LABORATORY Estimated GFR 41 (L) >=60 [facility] LABORATORY Comment: This estimated GFR (eGFR) [...] the following links into your internet browser. [email or web address] [email or web address] Specimen Anatomical Collection Method Collection Time Receive d Time (Source) Location / / Volume Laterality Blood specimen 01/18/2017 4:00 AM 017 4:10 (specimen) EDT AM EDT Resulting Agency Comment Spec In Lab Huan Morris MD CHEMISTRY ORDERABLES Performing Organization Address City/[facility]/ZIP Code Phon e Number [address] POCT Glucose (01/18/2017 12:05 AM EDT) athologist Signature POC Glucose 190 65 - 199 [facility] mg/dL [facility] LABORATORY Comment: Supplemental ranges: <140 mg/dL before meals <180 mg/dL all other times of the day Specimen Anatomical Collection Method Collection Time Receive d Time (Source) Location / / Volume Laterality Blood specimen 01/18/2017 12:05 7 (specimen) AM EDT 12:05 AM EDT Huan Morris MD POINT OF CARE TEST ORDERABLE S Performing Organization Address City/[facility]/ZIP Code [place] [address] (ABNORMAL) Basic Metabolic Panel (non-fasting) (01/17/2017 6:28 PM EDT) P athologist Signature Glucose Lvl 219 (H) 65 - 199 [facility]dL [facility] LABORATORY Comment: Diabetes: >=200 mg/dL plus symp toms BUN 59 (H) 8 - 18 mg/dL [facility] LABORATORY Creatinine 2.11 (H) 0.70 - 1.20 mg/dL [facility] LABORATORY Comment: result rechecked-ga Please note that the pediatric reference intervals supplied above were not validated at [facility]. Results from pediatri c patients [...] Chloride 95 (L) 98 - 107 mmol/L [facility] LABORATORY CO2 17 (L) 22 - 31 mmol/L [facility] LABORATORY Anion Gap 20 (H) 5 - 15 mmol/L [facility] LABORATORY Calcium 7.9 (L) 8.5 - 10.5 mg/dL [facility] LABORATORY Estimated GFR 24 (L) >=60 [facility] LABORATORY Comment: This estimated GFR (eGFR) [...] the following links into your internet browser. [email or web address] [email or web address]/DHMCnkf Specimen Anatomical Collection Method Collection Time Receive d Time (Source) Location / / Volume Laterality Blood specimen 01/17/2017 6:28 PM 017 6:48 (specimen) EDT PM EDT Resulting Agency Comment Spec In Lab Huan Morris MD CHEMISTRY ORDERABLES Performing Organization Address City/State/[place] [address] (ABNORMAL) Urinalysis with reflex Culture (01/17/2017 6:23 PM EDT) Patholo gist Method Time Signature Glucose UA 50 (A) Negative [facility] mg/dL [facility] LABORATORY Protein UA Negative Negative [facility] mg/dL [facility] LABORATORY Bilirubin UA Negative Negative [facility] mg/dL [facility] LABORATORY Comment: Clinical correlation required for positi ve Urine Bilirubin results as false positive may occur with some drugs and d rug related products. If a false positive is suspected a serum total bili armas should be considered if clinically indicated. Urobilinogen UA Normal Normal mg/dL [facility] LABORATORY pH UA 6.0 5.0 - 8.0 [facility] LABORATORY Blood UA Moderate (A) Negative mg/dL [facility] LABORATORY Ketones UA 20 (A) Negative mg/dL [facility] LABORATORY Nitrite UA Negative Negative [facility] LABORATORY Leukocytes UA Trace (A) Negative [facility] LABORATORY Appearance UA Clear Clear [facility] LABORATORY Spec [place] UA 1.011 1.002 - 1.030 [facility] LABORATORY Color UA Straw Yellow [facility] LABORATORY RBC UA 6 (H) 0 - 4 /HPF [facility] LABORATORY WBC UA 1 0 - 5 /HPF [facility] LABORATORY Squam Epith UA 1 <=4 /HPF [facility] LABORATORY Culture Reflexed No [facility] LABORATORY Specimen (Source) Anatomical Collection Method Collection Time Re ceived Time Location / / Volume Laterality Urine specimen 01/17/2017 6:23 01/17/2017 6:45 obtained via PM EDT PM EDT indwelling urinary catheter (specimen) Resulting Agency Comment Spec In Lab Huan Morris MD URINE ORDERABLES Performing Organization Address City/State/[place] [address] (ABNORMAL) POCT Glucose (01/17/2017 6:20 PM EDT) P athologist Signature POC Glucose 232 (H) 65 - 199 [facility] mg/dL [facility] LABORATORY Comment: Supplemental ranges: <140 mg/dL before meals <180 mg/dL all other times of the day Specimen Anatomical Collection Method Collection Time Receive d Time (Source) Location / / Volume Laterality Blood specimen 01/17/2017 6:20 PM 017 6:20 (specimen) EDT PM EDT Huan Morris MD POINT OF CARE TEST ORDERABLE S Performing Organization Address City/[facility]/[place] [address] (ABNORMAL) Urinalysis without microscopic (01/17/2017 1:10 PM EDT) [facility] Method Time Signature Glucose UA Negative Negative [facility] mg/dL [facility] LABORATORY Protein UA Negative Negative [facility] mg/dL [facility] LABORATORY Bilirubin UA Negative Negative [facility] mg/dL [facility] LABORATORY Comment: Clinical correlation required for positi ve Urine Bilirubin results as false positive may occur with some drugs and d rug related products. If a false positive is suspected a serum total bili armas should be considered if clinically indicated. Urobilinogen UA Normal Normal mg/dL [facility] LABORATORY pH UA 6.0 5.0 - 8.0 [facility] LABORATORY Blood UA Moderate (A) Negative mg/dL [facility] LABORATORY Ketones UA 5 (A) Negative mg/dL [facility] LABORATORY Nitrite UA Negative Negative [facility] LABORATORY Leukocytes UA Moderate (A) Negative [facility] LABORATORY Appearance UA Clear Clear [facility] LABORATORY Spec [place] UA 1.010 1.002 - 1.030 [facility] LABORATORY Color UA Straw Yellow [facility] LABORATORY Specimen Anatomical Collection Method Collection Time Receive d Time (Source) Location / / Volume Laterality Urine specimen 01/17/2017 1:10 PM 017 1:24 (specimen) EDT PM EDT Resulting Agency Comment Spec In Lab Ramos Kemp KETTLE WORKER URINE ORDERABLES Performing Organization Address City/[facility]/[place] [address] (ABNORMAL) BLOOD GAS 2 ARTERIAL (01/17/2017 1:07 PM EDT) Analysis Performed At Patho logist Time Signature pH Art 7.41 7.35 - [facility] 7.45 [facility] LABORATORY pCO2 Art 26 (L) 35 - 45 [facility] mmHg [facility] LABORATORY pO2 Art 92 85 - 104 [facility] LABORATORY HCO3 Art 16.2 (L) 20.0 - [facility] 26.0 [facility] mmol/L [facility] LABORATORY BE Art -8.4 (L) -3.0 - 3.0 [facility] mmol/L [facility] LABORATORY Hgb Blood Gas 11.0 (L) 11.7 - [facility] 15.5 gm/dL [facility] O2HB Art 95.5 94.0 - [facility] 97.0 % [facility] LABORATORY COHB Art 0.3 % [facility] LABORATORY Comment: Nonsmokers: 0.5-1.5% COHB Smokers: Variable, but usually less than 10% Toxic: 20-30% COHB Lethal: Greater than 60% COHB METHB Art 0.5 <=1.5 % [facility] LABORATORY Na Whole Blood 130 (L) 135 - 145 mmol/L [facility] LABORATORY K Whole Blood 4.2 3.5 - 5.0 mmol/L [facility] LABORATORY Comment: Please note: Patients with WBC >100,000 may have falsely elevated Potassium levels. Contact the Clinical Chemistry L aboratory if there are any questions. ICa Whole Blood 1.03 (L) 1.15 - 1.33 mmol/L [facility] LABORATORY Comment: Note: ??Total bilirubin higher than 20 m g/dL may lead to falsely low ionized calcium. CL Whole Blood 104 98 - 107 mmol/L [facility] LABORATORY Gluc Whole Bld 144 65 - 199 mg/dL [facility] LABORATORY Comment: Diabetes: >=200 mg/dL plus symp toms. Lactate WB 1.7 0.5 - 2.2 mmol/L [facility] LABORATORY Flow Art 2.0 LPM [facility] LABORATORY Specimen Anatomical Collection Method Collection Time Receive d Time (Source) Location / / Volume Laterality Blood specimen 01/17/2017 1:07 PM 017 1:07 (specimen) EDT PM EDT Huan Morris MD CHEMISTRY ORDERABLES Performing Organization Address City/State/[place] [address] Request For 2nd Read [...] chest with intravenous contrast was performed at [facility]. COMPARISON: CTA of the chest [...] chest with intravenous contrast was performed at [facility]. COMPARISON: CTA of the chest [...] Signature POC Glucose 167 65 - 199 [facility] mg/dL [facility] LABORATORY Comment: Supplemental ranges: <140 mg/dL before meals <180 mg/dL all other times of the day Specimen Anatomical Collection Method Collection Time Receive d Time (Source) Location / / Volume Laterality Blood specimen 01/17/2017 12:00 7 (specimen) PM EDT 12:00 PM EDT Luther Handy MD POINT OF CARE TEST ORDERABLE S Performing Organization Address City/State/[place] [address] (ABNORMAL) Hemogram (01/17/2017 12:00 PM EDT) Analysis Performed At Patho logist Time Signature WBC 24.0 (H) 4.0 - 9.5 [facility] LABORATORY RBC 3.99 (L) 4.00 - [place] 5.21 [facility] x10(6)/[facility] LABORATORY Hemoglobin 11.5 (L) 11.7 - [facility] 15.5 gm/dL [facility] LABORATORY Hematocrit 33.1 (L) 35.7 - [facility] 45.8 % [facility] LABORATORY MCV 83.0 82.6 - [facility] 94.[address] [facility] LABORATORY MCH 28.8 27.1 - [place] 32.0 pg [facility] LABORATORY MCHC 34.7 31.7 - [facility] JAY 35.0 gm/dL [facility] LABORATORY Platelets 265 145 - 357 [facility] x[facility](3[facility] LABORATORY RDWSD 42.5 37.0 - [facility] JAY 46.[address] [facility] LABORATORY RDWCV 13.9 11.5 - [facility] JAY 14.1 % [facility] LABORATORY MPV 11.5 7.6 - 12.9 [facility] LABORATORY nRBC % Auto 0.0 % [facility] LABORATORY nRBC Abs Auto 0.000 0.000 - [facility] JAY 0.000 [facility] x10(3)/[facility] LABORATORY Specimen Anatomical Collection Method Collection Time Receive d Time (Source) Location / / Volume Laterality Blood specimen 01/17/2017 12:00 01/17/201 7 (specimen) PM EDT 12:11 PM EDT Resulting Agency Comment Spec In Lab Luther Handy MD HEMATOLOGY ORDERABLES Performing Organization Address City/State/[place] [address] (ABNORMAL) Sedimentation rate (01/17/2017 12:00 PM EDT) P athologist Signature Sed Rate 51 (H) 0 - 20 [facility] mm/hr [facility] LABORATORY Specimen Anatomical Collection Method Collection Time Receive d Time (Source) Location / / Volume Laterality Blood specimen 01/17/2017 12:00 7 (specimen) PM EDT 12:11 PM EDT Resulting Agency Comment Spec In Lab Luther Handy MD HEMATOLOGY ORDERABLES Performing Organization Address City/[facility]/ZIP Code Phon e Number [address] Proteinase-3 Antibody (01/17/2017 12:00 PM EDT) athologist Signature PR3 Ab 2.3 <=20.0 [facility] LABORATORY Specimen Anatomical Collection Method Collection Time Receive d Time (Source) Location / / Volume Laterality Blood specimen 01/17/2017 12:00 7 1:41 (specimen) PM EDT PM EDT Resulting Agency Comment Spec In Lab Luther Handy MD CHEMISTRY ORDERABLES Performing Organization Address City/[facility]/ZIP Code Phon e Number [address] Myeloperoxidase Ab (01/17/2017 12:00 PM EDT) P athologist Signature MPO Ab <2.0 <=20.0 [facility] LABORATORY Specimen Anatomical Collection Method Collection Time Receive d Time (Source) Location / / Volume Laterality Blood specimen 01/17/2017 12:00 7 1:41 (specimen) PM EDT PM EDT Resulting Agency Comment Spec In Lab Luther Handy MD CHEMISTRY ORDERABLES Performing Organization Address City/State/ZIP Code Phon e Number [address] Cytoplasmic Neutrophilic Ab (01/17/2017 12:00 PM EDT) P athologist Signature C-ANCA Negative Negative [facility] LABORATORY Comment: Test Performed by: [facility] - [address] [address] P-ANCA Negative Negative [facility] LABORATORY Comment: Negative for cANCA and pANCA patterns by immunofluorescence. ADDITIONAL INFORMATIO N This test was developed and its performa nce characteristics determined by [facility] in a manner co nsistent with CLIA requirements. This test has not been vicki ared or approved by the U.S. Food and Drug Administration. Test Performed by: [facility] - [address] [address] Specimen Anatomical Collection Method Collection Time Receive d Time (Source) Location / / Volume Laterality Blood specimen 01/17/2017 12:00 7 4:04 (specimen) PM EDT PM EDT Resulting Agency Comment Spec In Lab Luther Handy MD CHEMISTRY ORDERABLES Performing Organization Address City/[facility] [place] [address] Glomerular Basement Membrane Antibody IgG (01/17/2017 12:00 PM EDT) athologist Signature GBM Ab <0.2 <1.0 [facility] (Negative) [facility] LABORATORY Comment: Test Performed by: [facility] [place] - [address] [address] Specimen Anatomical Collection Method Collection Time Receive d Time (Source) Location / / Volume Laterality Blood specimen 01/17/2017 12:00 7 4:04 (specimen) PM EDT PM EDT Resulting Agency Comment Spec In Lab Luther Handy MD IMMUNOLOGY ORDERABLES Performing Organization Address City/[facility]/ZIP [facility] [place] [address] (ABNORMAL) Basic Metabolic Panel (non-fasting) (01/17/2017 12:00 PM EDT) athologist Signature Glucose Lvl 167 65 - 199 [facility] mg/dL [facility] LABORATORY Comment: Diabetes: >=200 mg/dL plus symp toms BUN 84 (H) 8 - 18 mg/dL [facility] LABORATORY Creatinine 3.29 (H) 0.70 - 1.20 mg/dL [facility] LABORATORY Comment: Please note that the pediatric reference intervals supplied above were not validated at [facility]. Results from pediatri c patients should be interpreted in conjunction to the patient's age, height and muscle mass. Sodium 129 (L) 135 - 145 mmol/L [facility] LABORATORY Potassium 5.1 (H) 3.5 - 5.0 mmol/L [facility] LABORATORY Comment: Please note: ??Patients with WBC >100,00 0 may have falsely elevated Potassium levels. ??For accurate Potassium quantif ication in these patients send serum separator tube (gold top) for subsequent determinations. ??Contact the Clinical Chemistry Laboratory if there are any qu estions. Chloride 91 (L) 98 - 107 mmol/L [facility] LABORATORY CO2 16 (L) 22 - 31 mmol/L [facility] LABORATORY Anion Gap 22 (H) 5 - 15 mmol/L [facility] LABORATORY Calcium 8.1 (L) 8.5 - 10.5 mg/dL [facility] LABORATORY Estimated GFR 14 (L) >=60 [facility] LABORATORY Comment: This estimated GFR (eGFR) [...] the following links into your internet browser. [email or web address] [email or web address] Specimen Anatomical Collection Method Collection Time Receive d Time (Source) Location / / Volume Laterality Blood specimen 01/17/2017 12:00 7 (specimen) PM EDT 12:11 PM EDT Resulting Agency Comment Spec In Lab Ramos Kemp KETTLE WORKER CHEMISTRY ORDERABLES Performing Organization Address City/State/[place] [address] US Retroperitoneal Complete (01/17/2017 [...] 11:44 am) PATIENT INFO: ID #: ? [id number] ?: ??[birth year] (61 yrs) Name: ? CYN Magana YOUNG ? Visit Date: 01/17/2017 11:29 am PERFORMED BY: Performed By: ? Matt Carroll RDMS Attending: ?Segun GARCIA, Stephanie Morton . Referred By: ?JABARI CONNORS Location: ? [place] SERVICE(S) PROVIDED: ??URETRO - Retroperitoneal Complete - I [id number] ? [id number] INDICATIONS: ??JODY RIGHT KIDNEY: Cortical Thickness: ?Limited [...] 11:44 am ) PATIENT INFO: ID #: [id number] : [birth year] (61 y rs) Name: CYN PRADO Visit Date: 01/18/20 17 11:29 am PERFORMED BY: Performed By: Juli Carroll RDMS Attending: Stephanie Cast MD Referred By: JABARI CONNORS Location: [place] SERVICE(S) PROVIDED: URETRO - Retroperitoneal Complete - IMG [id number] INDICATIONS: JODY RIGHT KIDNEY: Cortical Thickness: Limited [...] Final Report 01/17 11:44 am Jabari Connors KETTLE WORKER IMG US GEN ORDERABLES ECHOCARDIOGRAM COMPLETE W CONTRAST (01/17/2017 11:30 AM EDT) P athologist Signature EF 75 [facility] Anatomical Region Laterality Modality Other Specimen (Source) Anatomical Location Collection Method / Collectio n Time Received Time / Laterality Volume 01/17/2017 Narrative 01/17/2017 12:41 PM EDT Procedure: ?Transthoracic Echocardiogram Patient: ?YOUNG CYN A ?(Age): 1955(61y) Med Rec#: ? [id number] ?Sex: ?F ? Site Loc: ? [facility] ?Ht / Wt: ??160(cm)/184(kg) Pt. Loc: ?Adult Floor ? BSA: ?2.61 Study Date: ?? 01/17/2017 ?Pt. Type: Inpatient Tape: ? Referring: Jabari Connors Referring: MADAN TAYLOR J Reading: Krunal Shaw ([id number]) Heavy Equipment Operator/Paver: Luigi Ramirez Diagnosis: *ICD-10-PCS Hypotension, unspecified (I [...] E-wave Vmax ?1.1 ?m/sec ? MV deceleration [id number] ?msec ? MV A-wave Vmax ?1.3 ?m/sec [...] ? Mid-Inferior ?Normal ? Mid-Inferoseptal ?Normal ? [place]-Septal ? Normal ? [place]-Anterior ? Normal ? [place]-Lateral ?Normal ? [place]-Inferior ? Normal ? [place]-Tip ?Normal ? This report has been electronically sign ed by: _ Krunal Shaw M.D. ? 01/17/2017 12:40:54 Images reviewed and interpretation [facility] Cardiac Ultrasound Laboratory Procedure Note Krunal Shaw MD - 01/17/2017Format ting of this note might be different from the original. Procedure: Transthoracic Echocardiogram Patient: JOHAN Magana (Age): [birth year] [age]y) Med Rec#: [id number] Sex: F Site Loc: [facility] Ht / Wt: 160(cm)/184(kg) Pt. Loc: Adult Floor BSA: 2.61 Study Date: 01/17/2017 Pt. Type: Inpatie nt Tape: Referring: Jabari Connors Referring: MADAN TAYLOR J Reading: Krunal Shaw [place] ([id number]) Heavy Equipment Operator/Paver: Luigi Ramirez Diagnosis: *ICD-10-PCS Hypotension, unspecified (I [...] MV E-wave Vmax 1.1 m/sec MV deceleration [id number] msec MV A-wave Vmax 1.3 m/sec MV [...] Normal Mid-Posterolateral Normal Mid-Inferior Normal Mid-Inferoseptal Normal [place]-Septal Normal [place]-Anterior Normal [place]-Lateral Normal [place]-Inferior Normal [place]-Tip Normal This report has been electronically sign ed by: _ Krunal Shaw M.D. 01/17/2017 12:40: 54 Images reviewed and interpretation song olea [facility] Cardiac Ultrasound Laboratory Jabari Connors DEISY ECHO ORDERABLES Cortisol (01/17/2017 7:35 AM EDT) athologist Signature Cortisol 12.8 mcg/dL [facility] Comment: An updated cortisol assay [...] Garland MD CHEMISTRY ORDERABLES Performing Organization Address City/[facility]/ZIP Code Phon e Number [address] POCT Glucose (01/17/2017 7:35 AM EDT) athologist Signature POC Glucose 166 65 - 199 [facility] mg/dL [facility] LABORATORY Comment: Supplemental ranges: <140 mg/dL [...] Number [facility] [place] [address] (ABNORMAL) Basic Metabolic Panel (non-fasting) (01/17/2017 7:35 AM EDT) athologist Signature Glucose Lvl 154 65 - 199 [facility] mg/dL [facility] LABORATORY Comment: Diabetes: >=200 mg/dL plus symp toms BUN 97 (H) 8 - 18 mg/dL [facility] LABORATORY Creatinine 3.97 (H) 0.70 - 1.20 mg/dL [facility] LABORATORY Comment: result rechecked-mkf Please note that the pediatric reference intervals supplied above were not validated at [facility]. Results from pediatri c patients should be interpreted in conjunction to the patient's age, height and muscle mass. Sodium 128 (L) 135 - 145 mmol/L [facility] LABORATORY Potassium 5.1 (H) 3.5 - 5.0 mmol/L [facility] LABORATORY Comment: Please note: ??Patients with WBC >100,00 0 may have falsely elevated Potassium levels. ??For accurate Potassium quantif ication in these patients send serum separator tube (gold top) for subsequent determinations. ??Contact the Clinical Chemistry Laboratory if there are any qu estions. Chloride 91 (L) 98 - 107 mmol/L [facility] LABORATORY CO2 16 (L) 22 - 31 mmol/L [facility] LABOR[facility] Anion Gap 21 (H) 5 - 15 mmol/L [facility] LABORATORY Calcium 7.9 (L) 8.5 - 10.5 mg/dL [facility] LABORATORY Estimated GFR 12 (L) >=60 [facility] LABORATORY Comment: This estimated GFR (eGFR) [...] the following links into your internet browser. [email or web address] [email or web address] Specimen Anatomical Collection Method Collection Time Receive d Time (Source) Location / / Volume Laterality Blood specimen 01/17/2017 7:35 AM 017 7:40 (specimen) EDT AM EDT Resulting Agency Comment Spec In Lab Ramos Montalvoault K[employer]TLE WORKER CHEMISTRY ORDERABLES Performing Organization Address City/State/[place] [address] (ABNORMAL) BLOOD GAS 2 VENOUS (01/17/2017 3:14 AM EDT) P athologist Signature pH Danie 7.37 7.32 - [facility] 7.42 [facility] LABORATORY pCO2 Danie 33 (L) 41 - 51 [facility] LABORATORY pO2 Danie 75 (H) 25 - 40 [facility] LABORATORY HCO3 Danie 18.6 mmol/L [facility] LABORAT[facility] BE Danie -6.7 mmol/L [facility] LABORATORY Hgb Blood Gas 13.5 11.7 - [facility] 15.5 gm/dL [facility] LABORATORY O2HB Danie 93.6 % [facility] LABORATORY COHB Danie 0.4 % [facility] LABORATORY Comment: Nonsmokers: 0.5-1.5% COHB Smokers: Variable, but usually less than 10% Toxic: 20-30% COHB Lethal: Greater than 60% COHB METHB Danie 0.4 <=1.5 % [facility] LABORATORY Na Whole Blood 127 (L) 135 - 145 mmol/L [facility] LABORATORY K Whole Blood 5.1 (H) 3.5 - 5.0 mmol/L [facility] LABORATORY Comment: Please note: Patients with WBC >100,000 may have falsely elevated Potassium levels. Contact the Clinical Chemistry L aboratory if there are any questions. ICa Whole Blood 1.08 (L) 1.15 - 1.33 mmol/L [facility] LABORATORY Comment: Note: ??Total bilirubin higher than 20 m g/dL may lead to falsely low ionized calcium. CL Whole Blood 96 (L) 98 - 107 mmol/L [facility] LABORATORY Gluc Whole Bld 114 65 - 199 mg/dL [facility] LABORATORY Comment: Diabetes: >=200 mg/dL plus symp toms Lactate WB 1.6 0.5 - 2.2 mmol/L [facility] LABORATORY Flow Danie 5.0 LPM [facility] LABORATORY BGas Source Central Venous [facility] LABORATORY Specimen Anatomical Collection Method Collection Time Receive d Time (Source) Location / / Volume Laterality Blood specimen 01/17/2017 3:14 AM 017 3:14 (specimen) EDT AM EDT Alvaro Law MD CHEMISTRY ORDERABLES Performing Organization Address City/State/[place] [address] (ABNORMAL) Differential, Automated (01/17/2017 2:15 AM EDT) [facility] gist Method Time Signature Neutrophils % 71.6 % [facility] LABORATORY Neutr Abs (ANC) 18.01 (H) 1.70 - [facility] 6.10 [facility] x10(3)[facility] LABORATORY Lymphocytes % 16.0 % [facility] LABORATORY Lymphocytes Abs 4.0 (H) 0.9 - 3.2 [facility] x10(3)[facility] LABORATORY Monocytes % 10.6 % [facility] LABORATORY Monocyte Abs 2.7 (H) 0.3 - 0.9 [facility] x10(3)[facility] LABORATORY Eosinophils % 0.5 % [facility] LABORATORY Eosinophils Abs 0.1 0.0 - 0.4 [facility] x10(3)[facility] LABORATORY Basophils % 0.1 % [facility] LABORATORY Basophils Abs 0.0 0.0 - 0.1 [facility] x10(3)[facility] LABORATORY Immature Gran % 1.20 % [facility] LABORATORY Comment: Immature granulocytes(IG's)percentage an d absolute count will include metamyelocytes, myelocytes, and promyelo cytes. Blood smears from CBCs yielding IG's will be scanned manually for concor dance. If this scan disagrees with the automated IG or if promyelocytes are not ed, a manual differential will be performed. Surekha Gran Abs 0.29 (H) 0.00 - 0.04 x10(3)/[facility] LABORATORY Specimen Anatomical Collection Method Collection Time Receive d Time (Source) Location / / Volume Laterality Blood specimen 01/17/2017 2:15 AM 017 2:20 (specimen) EDT AM EDT Resulting Agency Comment Spec In Lab Alvaro Law MD HEMATOLOGY ORDERABLES Performing Organization Address City/State/[place] [address] (ABNORMAL) Hemogram (01/17/2017 2:15 AM EDT) Analysis Performed At Patho logist Time Signature WBC 25.1 (H) 4.0 - 9.5 [facility] x10(3[facility] LABORATORY RBC 4.06 4.00 - [facility] JAY 5.21 [facility] x10(6)/[facility] LABORATORY Hemoglobin 12.0 11.7 - [facility] JAY 15.5 gm/dL [facility] LABORATORY Hematocrit 34.4 (L) 35.7 - [facility] 45.8 % [facility] LABORATORY MCV 84.7 82.6 - [facility] 94.[address] [facility] LABORATORY MCH 29.6 27.1 - [facility] 32.0 pg [facility] LABORATORY MCHC 34.9 31.7 - [facility] JAY 35.0 gm/dL [facility] LABORATORY Platelets 281 145 - 357 [facility] x[facility](3)/[facility] LABORATORY RDWSD 44.1 37.0 - [facility] JAY 46.[address] [facility] LABORATORY RDWCV 14.3 (H) 11.5 - [facility] JAY 14.1 % [facility] LABORATORY MPV 12.1 7.6 - 12.9 [facility] nRBC % Auto 0.0 % [facility] LABORATORY nRBC Abs Auto 0.000 0.000 - [facility] 0.000 [facility] x10(3)/[facility] LABORATORY Specimen Anatomical Collection Method Collection Time Receive d Time (Source) Location / / Volume Laterality Blood specimen 01/17/2017 2:15 AM 017 2:20 (specimen) EDT AM EDT Resulting Agency Comment Spec In Lab Alvaro Law MD HEMATOLOGY ORDERABLES Performing Organization Address City/[facility]/ZIP Code Phon e Number [address] Phosphorus (01/17/2017 2:15 AM EDT) P athologist Signature Phosphorus 4.0 2.5 - 4.5 [facility] mg/dL [facility] LABORATORY Specimen Anatomical Collection Method Collection Time Receive d Time (Source) Location / / Volume Laterality Blood specimen 01/17/2017 2:15 AM 017 2:20 (specimen) EDT AM EDT Resulting Agency Comment Spec In Lab Alvaro Law MD CHEMISTRY ORDERABLES Performing Organization Address City/[facility]/ZIP Code Phon e Number [address] Magnesium (01/17/2017 2:15 AM EDT) P athologist Signature Magnesium 0.95 0.69 - 1.07 [facility] mmol/L [facility] LABORATORY Specimen Anatomical Collection Method Collection Time Receive d Time (Source) Location / / Volume Laterality Blood specimen 01/17/2017 2:15 AM 017 2:20 (specimen) EDT AM EDT Resulting Agency Comment Spec In Lab Alvaro Law MD CHEMISTRY ORDERABLES Performing Organization Address City/[facility]/ZIP Code [place] [address] (ABNORMAL) Basic Metabolic Panel (non-fasting) (01/17/2017 2:15 AM EDT) P athologist Signature Glucose Lvl 116 65 - 199 [facility] mg/dL [facility] LABORATORY Comment: Diabetes: >=200 mg/dL plus symp toms BUN 109 (H) 8 - 18 mg/dL [facility] LABORATORY Creatinine 4.96 (H) 0.70 - 1.20 mg/dL [facility] LABORATORY Comment: result rechecked-rr Please note that the pediatric reference intervals supplied above were not validated at [facility]. Results from pediatri c patients should be interpreted in conjunction to the patient's age, height and muscle mass. Sodium 128 (L) 135 - 145 mmol/L [facility] LABORATORY Potassium 5.4 (H) 3.5 - 5.0 mmol/L [facility] LABORATORY Comment: Please note: ??Patients with WBC >100,00 0 may have falsely elevated Potassium levels. ??For accurate Potassium quantif ication in these patients send serum separator tube (gold top) for subsequent determinations. ??Contact the Clinical Chemistry Laboratory if there are any qu estions. Chloride 89 (L) 98 - 107 mmol/L [facility] LABORATORY CO2 17 (L) 22 - 31 mmol/L [facility] LABORATORY Anion Gap 22 (H) 5 - 15 mmol/L [facility] LABORATORY Calcium 7.8 (L) 8.5 - 10.5 mg/dL [facility] LABORATORY Estimated GFR 9 (L) >=60 [facility] LABORATORY Comment: This estimated GFR (eGFR) [...] the following links into your internet browser. [email or web address] [email or web address] Specimen Anatomical Collection Method Collection Time Receive d Time (Source) Location / / Volume Laterality Blood specimen 01/17/2017 2:15 AM 017 2:19 (specimen) EDT AM EDT Resulting Agency Comment Spec In Lab Ramos Kemp APRN CHEMISTRY ORDERABLES Performing Organization Address City/State/[place] [address] Insert Arterial Line (01/17/2017 [...] p lanned procedure. ?? Hand Hygiene: The thread twister did perform h and hygiene prior to [...] EDT) athologist Signature Heparin 1.40 IU/mL [facility] [id number] [facility] LABORATORY Comment: Guidelines for therapeutic unfractionate d [...] Organization Address City/State/[place] [address] EKG 12 Lead (01/16/2017 11:16 PM EDT) Component Value Ref Range Test Analysis Performed Pathologis t Method Time At Signature Ventricular rate 82 BPM MUSE SYSTEM Atrial Rate 82 BPM MUSE SYSTEM P-R Interval 192 ms MUSE SYSTEM QRS Duration 114 ms MUSE SYSTEM Q-T Interval 412 ms MUSE SYSTEM QTC Calculated 481 ms MUSE SYSTEM (Bezet) Calculated P [place] 70 degrees MUSE SYSTEM Calculated R [place] 53 degrees MUSE SYSTEM Calculated T [place] 26 degrees MUSE SYSTEM INTERPRETATION Normal sinus rhythm with sinus arrhythmia MUSE SYSTEM Prolonged QT Abnormal ECG When compared with ECG of 16-JAN-2017 17:19, No significant change was found I personally reviewed the tracing and edited the fellows int erpretation Confirmed by fellow MD Geovanni, Venkatesh ([id number]) on 01/17/2017 1 1:15:43 AM Confirmed by MD Levy, Madan ([id number]) on 01/17/2017 5:42 :15 PM Specimen Anatomical [...] Delgadillo at 01/17/2017 1:21 AM Jabari Lauragregg DIESY IMG DX ORDERABLES (ABNORMAL) Differential, Automated (01/16/2017 9:45 PM EDT) [facility] Method Time Signature Neutrophils % 69.8 % [facility] LABORATORY Neutr Abs (ANC) 9.91 (H) 1.70 - [facility] 6.10 [facility] x10(3)/[facility] L LABORATORY Lymphocytes % 18.8 % [facility] LABORATORY Lymphocytes Abs 2.7 0.9 - 3.2 [facility] x10(3)/[facility] LABORATORY Monocytes % 9.3 % [facility] LABORATORY Monocyte Abs 1.3 (H) 0.3 - 0.9 [facility] x10(3)/[facility] LABORATORY Eosinophils % 0.8 % [facility] LABORATORY Eosinophils Abs 0.1 0.0 - 0.4 [facility] x10(3)/[facility] LABORATORY Basophils % 0.1 % [facility] LABORATORY Basophils Abs 0.0 0.0 - 0.1 [facility] x10(3)/[facility] LABORATORY Immature Gran % 1.20 % [facility] LABORATORY Comment: Immature granulocytes(IG's)percentage an d absolute count will include metamyelocytes, myelocytes, and promyelo cytes. Blood smears from CBCs yielding IG's will be scanned manually for concor dance. If this scan disagrees with the automated IG or if promyelocytes are not ed, a manual differential will be performed. Surekha Gran Abs 0.17 (H) 0.00 - 0.04 x10(3)/[facility] LABORATORY Specimen Anatomical Collection Method Collection Time Receive d Time (Source) Location / / Volume Laterality Blood specimen 01/16/2017 9:45 PM 017 9:58 (specimen) EDT PM EDT Resulting Agency Comment Spec In Lab Jabari Connors DEISY HEMATOLOGY ORDERABLES Performing Organization Address City/State/[place] [address] (ABNORMAL) Hemogram (01/16/2017 9:45 PM EDT) Analysis Performed At Patho logist Time Signature WBC 14.2 (H) 4.0 - 9.5 [facility] x10(3)/[facility] LABORATORY RBC 3.41 (L) 4.00 - [facility] 5.21 [facility] x10(6)/[facility] LABORATORY Hemoglobin 10.0 (L) 11.7 - [facility] 15.5 gm/dL [facility] Hematocrit 28.9 (L) 35.7 - [facility] 45.8 % [facility] LABORATORY MCV 84.8 82.6 - [facility] 94.[address] [facility] LABORATORY MCH 29.3 27.1 - [facility] 32.0 pg [facility] LABORATORY MCHC 34.6 31.7 - [facility] 35.0 gm/dL [facility] LABORATORY Platelets 205 145 - 357 [facility] x10(3)/[facility] LABORATORY RDWSD 44.6 37.0 - [facility] 46.[address] [facility] LABORATORY RDWCV 14.5 (H) 11.5 - [facility] 14.1 % [facility] LABORATORY MPV 12.1 7.6 - 12.9 [facility] LABORATORY nRBC % Auto 0.0 % [facility] LABORATORY nRBC Abs Auto 0.000 0.000 - [facility] 0.000 [facility] x10(3)/[facility] LABORATORY Specimen Anatomical Collection Method Collection Time Receive d Time (Source) Location / / Volume Laterality Blood specimen 01/16/2017 9:45 PM 017 9:58 (specimen) EDT PM EDT Resulting Agency Comment Spec In Lab Jabari Sanchezconnie OLIVAS HEMATOLOGY ORDERABLES Performing Organization Address City/State/[place] [address] (ABNORMAL) Hepatic Function Panel (01/16/2017 9:45 PM EDT) P athologist Signature Total Protein 5.1 (L) 6.1 - 8.0 [facility] gm/dL [facility] LABORATORY Albumin 2.6 (L) 3.2 - 5.2 [facility] gm/dL [facility] LABORATORY AST 13 0 - 30 [place] unit/L [facility] LABORATORY ALT 25 0 - 30 [facility] unit/L [facility] LABORATORY Alk Phos 48 40 - 104 [facility] unit/L [facility] LABORATORY Total 0.5 0.2 - 1.3 [facility] Bilirubin mg/dL [facility] LABORATORY Bili, Direct 0.2 0.0 - 0.3 [facility] mg/dL [facility] LABORATORY Specimen Anatomical Collection Method Collection Time Receive d Time (Source) Location / / Volume Laterality Blood specimen 01/16/2017 9:45 PM 017 9:54 (specimen) EDT PM EDT Resulting Agency Comment Spec In Lab Jabari Connors APRN CHEMISTRY ORDERABLES Performing Organization Address City/[facility]/ZIP Code Phon e Number [address] (ABNORMAL) Phosphorus (01/16/2017 9:45 PM EDT) athologist Signature Phosphorus 5.1 (H) 2.5 - 4.5 [place] mg/dL [facility] LABORATORY Specimen Anatomical Collection Method Collection Time Receive d Time (Source) Location / / Volume Laterality Blood specimen 01/16/2017 9:45 PM 017 9:54 (specimen) EDT PM EDT Resulting Agency Comment Spec In Lab Jabari Connors APRN CHEMISTRY ORDERABLES Performing Organization Address City/[facility]/ZIP Code [place] [address] Magnesium (01/16/2017 9:45 PM EDT) athologist Signature Magnesium 0.97 0.69 - 1.07 [facility] mmol/L [facility] LABORATORY Specimen Anatomical Collection Method Collection Time Receive d Time (Source) Location / / Volume Laterality Blood specimen 01/16/2017 9:45 PM 017 9:54 (specimen) EDT PM EDT Resulting Agency Comment Spec In Lab Jabari Connors APRN CHEMISTRY ORDERABLES Performing Organization Address City/[facility] [place] [address] Cardiac Enzymes (01/16/2017 9:45 PM EDT) P athologist Signature Troponin-T <0.03 <=0.03 [place] ng/mL [facility] LABORATORY Comment: 0.03 ng/mL: Represents the 99th [...] consensus document of the Joint Society of Cardiology/[employer] College o f [employer] Committee for the redefinition of myocardial infarction. ? ?Journal of the [place] College of Cardiology 2000; 36: 959-969] CK, Total 64 0 - 160 unit/L [facility] LABORATORY Specimen Anatomical Collection Method Collection Time Receive d Time (Source) Location / / Volume Laterality Blood specimen 01/16/2017 9:45 PM 017 9:54 (specimen) EDT PM EDT Resulting Agency Comment Spec In Lab Jabari Sanchezconnie OLIVAS CHEMISTRY ORDERABLES Performing Organization Address City/State/[place] [address] (ABNORMAL) Basic Metabolic Panel (non-fasting) (01/16/2017 9:45 PM EDT) athologist Signature Glucose Lvl 87 65 - 199 [facility] mg/dL [facility] LABORATORY Comment: Diabetes: >=200 mg/dL plus symp toms BUN 124 (H) 8 - 18 mg/dL [facility] LABORATORY Creatinine 6.30 (H) 0.70 - 1.20 mg/dL [facility] LABORATORY Comment: Please note that the pediatric reference intervals supplied above were not validated at [facility]. Results from pediatri c patients should be interpreted in conjunction to the patient's age, height and muscle mass. Sodium 127 (L) 135 - 145 mmol/L [facility] LABORATORY Comment: Result rechecked. Potassium 5.4 (H) 3.5 - 5.0 mmol/L [facility] LABORATORY Comment: Please note: ??Patients with WBC >100,00 0 may have falsely elevated Potassium levels. ??For accurate Potassium quantif ication in these patients send serum separator tube (gold top) for subsequent determinations. ??Contact the Clinical Chemistry Laboratory if there are any qu estions. Chloride 88 (L) 98 - 107 mmol/L [facility]OR[facility] CO2 20 (L) 22 - 31 mmol/L [facility] Anion Gap 19 (H) 5 - 15 mmol/L [facility] LABORATORY Calcium 7.2 (L) 8.5 - 10.5 mg/dL [facility] LABORATORY Estimated GFR 7 (L) >=60 [facility] LABORATORY Comment: This estimated GFR (eGFR) [...] the following links into your internet browser. [email or web address] http://[employer]/[facility]f Specimen Anatomical Collection Method Collection Time Receive d Time (Source) Location / / Volume Laterality Blood specimen 01/16/2017 9:45 PM 017 9:54 (specimen) EDT PM EDT Resulting Agency Comment Spec In Lab Jabari Connors DEISY CHEMISTRY ORDERABLES Performing Organization Address City/State/[place] [address] (ABNORMAL) APTT (01/16/2017 9:45 PM EDT) athologist Signature PTT 38 (H) 25 - 35 sec [facility] LABORATORY Comment: The recommended therapeutic range for fu ll dose, unfractionated heparin at [facility] is 80 ? 114 seconds. [...] Organization Address City/State/ZIP Code Phon e Number [address] (ABNORMAL) Prothrombin Time (01/16/2017 9:45 PM EDT) athologist Signature PT 15.4 (H) 12.0 - 15.0 [facility] LABORATORY Comment: An INR <2.0 indicates [...] circumstances. INR 1.2 (H) 0.9 - 1.1 [facility] LABORATORY Specimen Anatomical Collection Method Collection Time Receive d Time (Source) Location / / Volume Laterality Blood specimen 01/16/2017 9:45 PM 017 9:58 (specimen) EDT PM EDT Resulting Agency Comment Spec In Lab Jabari Connors APRN HEMATOLOGY ORDERABLES Performing Organization Address City/[facility]/ZIP Code [place] [address] POCT Glucose (01/16/2017 9:20 PM EDT) athologist Signature POC Glucose 96 65 - 199 [facility] mg/dL [facility] LABORATORY Comment: Supplemental ranges: <140 mg/dL before meals <180 mg/dL all other times of the day Specimen Anatomical Collection Method Collection Time Receive d Time (Source) Location / / Volume Laterality Blood specimen 01/16/2017 9:20 PM 017 9:20 (specimen) EDT PM EDT Alvaro Law MD POINT OF CARE TEST ORDERABLE S Performing Organization Address City/State/ZIP [place] [address] Blood culture (01/16/2017 9:20 PM EDT) Patholo gist Method Time Signature Blood Culture No growth [facility] at 5 days. [facility] LABORATORY Specimen Anatomical Collection Method Collection Time Receive d Time (Source) Location / / Volume Laterality Blood specimen 01/16/2017 9:20 PM 017 (specimen) EDT 10:06 PM EDT Resulting Agency Comment Spec In Lab Alvaro Law MD MICROBIOLOGY - BLOOD ORDERAB LES Performing Organization Address City/State/[place] [address] (ABNORMAL) BLOOD GAS 2 ARTERIAL (01/16/2017 9:19 PM EDT) Analysis Performed At Patho logist Time Signature pH Art 7.38 7.35 - [facility] 7.45 [facility] LABORATORY pCO2 Art 38 35 - 45 [facility] mmHg [facility] LABORATORY pO2 Art 78 (L) 85 - 104 [facility] LABORATORY HCO3 Art 22.1 20.0 - [facility] 26.0 [facility] mmol/L [facility] LABORATORY BE Art -3.0 -3.0 - 3.0 [facility] mmol/L [facility] LABORATORY Hgb Blood Gas 10.8 (L) 11.7 - [facility] 15.5 gm/dL [facility] LABORATORY O2HB Art 93.7 (L) 94.0 - [facility] 97.0 % [facility] LABORATORY COHB Art 0.3 % [facility] LABORATORY Comment: Nonsmokers: 0.5-1.5% COHB Smokers: Variable, but usually less than 10% Toxic: 20-30% COHB Lethal: Greater than 60% COHB METHB Art 0.5 <=1.5 % [facility] LABORATORY Na Whole Blood 123 (L) 135 - 145 mmol/L [facility] LABORATORY K Whole Blood 5.2 (H) [...] Whole Bld 80 65 - 199 mg/dL [facility] [facility] Comment: Diabetes: >=200 mg/dL plus symp toms. Lactate WB 1.2 0.5 - 2.2 mmol/L [facility] Flow Art 2.0 LPM [facility] Specimen Anatomical Collection Method Collection Time Receive d Time (Source) Location / / Volume Laterality Blood specimen 01/16/2017 9:19 PM 017 9:19 (specimen) EDT PM EDT Alvaro Law MD CHEMISTRY ORDERABLES Performing Organization Address City/[facility]/[place] [address] EKG 12 Lead (01/16/2017 5:19 PM EDT) Component Value Ref Range Test Analysis Performed Pathologis t Method Time At Signature Ventricular rate 67 BPM MUSE SYSTEM Atrial Rate 67 BPM MUSE SYSTEM P-R Interval 194 ms MUSE SYSTEM QRS Duration 100 ms MUSE SYSTEM Q-T Interval 430 ms MUSE SYSTEM QTC Calculated 454 ms MUSE SYSTEM (Bezet) Calculated P [place] 63 degrees MUSE SYSTEM Calculated R [place] 52 degrees MUSE SYSTEM Calculated T [place] 14 degrees MUSE SYSTEM INTERPRETATION Normal sinus rhythm MUSE SYSTEM Normal ECG When compared with ECG of 16-JAN-2017 04:37, No significant change was found Confirmed by MD Key Gregory A. ([id number]) on 01/17/2017 6: 47:41 PM Specimen Anatomical Collection Method Collection Time Receive d Time (Source) Location / / Volume Laterality 01/16/2017 5:19 PM 7 6:47 EDT PM EDT Kyler Deluna MD ECG ORDERABLES Performing Organization Address City/[facility]/ZIP Code Phon e Number MUSE SYSTEM POCT Glucose (01/16/2017 5:15 PM EDT) P athologist Signature POC Glucose 100 65 - 199 [facility] mg/dL [facility] Comment: Supplemental ranges: <140 mg/dL before meals <180 mg/dL all other times of the day Specimen Anatomical Collection Method Collection Time Receive d Time (Source) Location / / Volume Laterality Blood specimen 01/16/2017 5:15 PM 017 5:15 (specimen) EDT PM EDT Alvaro Law MD POINT OF CARE TEST ORDERABLE S Performing Organization Address City/State/ZIP Code Phon e Number [place] [id number] (ABNORMAL) Hemogram (01/16/2017 2:55 PM EDT) Analysis Performed At Patho logist Time Signature WBC 13.2 (H) 4.0 - 9.5 [facility] LABORATORY RBC 3.52 (L) 4.00 - [place] 5.21 [facility] x10(6)/[facility] LABORATORY Hemoglobin 10.1 (L) 11.7 - [facility] 15.5 gm/dL [facility]ORY Hematocrit 29.3 (L) 35.7 - [facility] JAY 45.8 % [facility]ORY MCV 83.2 82.6 - [facility] 94.[address] [facility] LABORATORY MCH 28.7 27.1 - [place] 32.0 pg [facility] LABORATORY MCHC 34.5 31.7 - [facility] JAY 35.0 gm/dL [facility] LAB[facility]ORY Platelets 223 145 - 357 [facility] x10(3)/[facility] LABORATORY RDWSD 43.3 37.0 - [facility] JAY 46.[address] [facility] LABORATORY RDWCV 14.2 (H) 11.5 - [facility] JAY 14.1 % [facility] LABORATORY MPV 11.9 7.6 - 12.9 [facility] LABORATORY nRBC % Auto 0.0 % [facility] nRBC Abs Auto 0.000 0.000 - [facility] JAY 0.000 [facility] x10(3)/[facility] LABORATORY Specimen Anatomical Collection Method Collection Time Receive d Time (Source) Location / / Volume Laterality Blood specimen 01/16/2017 2:55 PM 017 3:10 (specimen) EDT PM EDT Resulting Agency Comment Spec In Lab Alvaro Law MD HEMATOLOGY ORDERABLES Performing Organization Address City/State/ZIP Code Phon e Number [facility] [place] [address] (ABNORMAL) Basic Metabolic Panel (non-fasting) (01/16/2017 2:55 PM EDT) P athologist Signature Glucose Lvl 98 65 - 199 [facility] mg/dL [facility] Comment: Diabetes: >=200 mg/dL plus symp toms BUN 132 (H) 8 - 18 mg/dL [facility] Creatinine 6.67 (H) 0.70 - 1.20 mg/dL [facility] Comment: Please note that the pediatric reference intervals supplied above were not validated at [facility]. Results from pediatri c patients should be interpreted in conjunction to the patient's age, height and muscle mass. Sodium 122 (L) 135 - 145 mmol/L [facility] Potassium 5.9 (H) 3.5 - 5.0 mmol/L [facility] Comment: Please note: ??Patients with WBC >100,00 0 may have falsely elevated Potassium levels. ??For accurate Potassium quantif ication in these patients send serum separator tube (gold top) for subsequent determinations. ??Contact the Clinical Chemistry Laboratory if there are any qu estions. Chloride 83 (L) 98 - 107 mmol/L [facility] CO2 21 (L) 22 - 31 mmol/L [facility] Anion Gap 18 (H) 5 - 15 mmol/L [facility] Calcium 8.0 (L) 8.5 - 10.5 mg/dL [facility] Estimated GFR 6 (L) >=60 [facility] Comment: This estimated GFR (eGFR) [...] the following links into your internet browser. [email or web address]/Omnidronenkdep http://[employer]/DHMCnkf Specimen Anatomical Collection Method Collection Time Receive d Time (Source) Location / / Volume Laterality Blood specimen 01/16/2017 2:55 PM 017 3:10 (specimen) EDT PM EDT Resulting Agency Comment Spec In Lab Ramos Selene Kemp APRN CHEMISTRY ORDERABLES Performing Organization Address City/[facility]/ZIP [place] [address] Ab Comment (01/16/2017 1:50 PM EDT) Component Value Ref Test Analysis Performed At [facility] gist Range Method Time Signature Ab Information INTERPRETATION: A red cell a lloantibody, anti-K, was identified in the patient [place] specimen. ??This antibody can cause red cell hemolysis. Fu ture units for JAY transfusion will be negative for the K antigen and escrow assistant ss-match compatible at [facility] the antiglobulin phase. ?? sobeida additional steps [...] MD BLOOD BANK ORDERABLES Performing Organization Address City/[facility]/ZIP Code Phon e Number [address] Antibody identification (01/16/2017 1:50 PM EDT) Analysis Performed At Path logist Time Signature Ab Identified Anti-Bga [facility] Specimen Anatomical Collection Method Collection Time Receive d Time (Source) Location / / Volume Laterality Blood specimen Other / Unknown 01/16/2017 1:50 PM 060 11/2016 1:50 (specimen) EDT PM EDT Resulting Agency Comment Spec In Lab Nakul Garland MD BLOOD BANK ORDERABLES Performing Organization Address City/[facility]/ZIP Code Phon e Number [address] (ABNORMAL) Urine culture (01/16/2017 12:00 PM EDT) Patholo [employer] Method Time Signature Urine Culture Greater than [facility] K 100,000 [facility] cfu/ml [facility] Missy LABORATORY albicans (A) Organism Missy [facility] albicans (A) [facility]ORY Specimen (Source) Anatomical Collection Method Collection Time Re ceived Time Location / / Volume Laterality Urine specimen 01/16/2017 12:00 7 obtained by clean PM EDT 12:36 PM E DT catch procedure (specimen) Resulting Agency Comment Spec In Lab Nakul Garland MD MICROBIOLOGY - GENERAL ORDER MARY Performing Organization Address City/[facility]/ZIP Code Phon e Number [address] Urine Hold (01/16/2017 12:00 PM EDT) P athologist Signature Urine Hold Sample in [facility]. [facility]ORY Specimen Anatomical Collection Method Collection Time Receive d Time (Source) Location / / Volume Laterality Urine specimen Urine / Unknown 01/16/2017 12:00 2016 (specimen) PM EDT 12:01 PM EDT Nakul Garland MD URINE ORDERABLES Performing Organization Address City/[facility]/ZIP [facility] [place] [address] (ABNORMAL) Urinalysis with reflex Culture (01/16/2017 12:00 PM EDT) [facility] [employer] Method Time Signature Glucose UA Negative Negative [facility] mg/dL [facility] Protein UA 100 (A) Negative [facility] mg/dL [facility] Bilirubin UA Negative Negative [facility] mg/dL [facility] Comment: Clinical correlation required for positi ve Urine Bilirubin results as false positive may occur with some drugs and d rug related products. If a false positive is suspected a serum total bili armas should be considered if clinically indicated. Urobilinogen UA Normal Normal mg/dL [facility] pH UA 5.0 5.0 - 8.0 [facility] Blood UA Large (A) Negative mg/dL [facility] Ketones UA Negative Negative mg/dL [facility] Nitrite UA Negative Negative [facility] Leukocytes UA Moderate (A) Negative mcL [facility] LABORATORY Appearance UA Turbid (A) Clear [facility] Spec [place] UA 1.019 1.002 - 1.030 [facility] LABORATORY Color UA Red Yellow [facility] RBC UA >182 0 - 4 /HPF [facility] Comment: Corrected from Not Present /HPF [NA] on 01/16/17 12:24 by Ami David WBC UA >182 0 - 5 /HPF [facility] Comment: Corrected from Not Present /HPF [NA] on 01/16/17 12:24 by Ami David WBCs Clumping Occasional (A) None /HPF [facility] Bacteria UA Moderate (A) None /HPF [facility] Yeast Hyph UA Few (A) None /HPF [facility] Trans Epith UA 2 (H) <=1 /HPF [facility] Renal Epith UA 1 (H) <=0 /HPF [facility] Culture Reflexed Yes [facility] Specimen (Source) Anatomical Collection Method Collection Time Re ceived Time Location / / Volume Laterality Urine specimen 01/16/2017 12:00 7 obtained by clean PM EDT 12:01 PM E DT catch procedure (specimen) Resulting Agency Comment Spec In Lab Nakul Garland MD URINE ORDERABLES Performing Organization Address City/State/[place] [address] (ABNORMAL) Basic Metabolic Panel (non-fasting) (01/16/2017 10:06 AM EDT) athologist Signature Glucose Lvl 97 65 - 199 [facility] mg/dL [facility] Comment: Diabetes: >=200 mg/dL plus symp toms BUN 132 (H) 8 - 18 mg/dL [facility] Creatinine 6.51 (H) 0.70 - 1.20 mg/dL [facility] Comment: Please note that the pediatric reference intervals supplied above were not validated at [facility]. Results from pediatri c patients should be interpreted in conjunction to the patient's age, height and muscle mass. Sodium 123 (L) 135 - 145 mmol/L [facility] Potassium 6.3 (Critical) 3.5 - 5.0 mmol/L [facility] Comment: called by/read back by (full name)/date- time Lj Jennings: 01/16/17 1045 Please note: ??Patients with WBC >100,00 0 may have falsely elevated Potassium levels. ??For accurate Potassium quantif ication in these patients send serum separator tube (gold top) for subsequent determinations. ??Contact the Clinical Chemistry Laboratory if there are any qu estions. Chloride 83 (L) 98 - 107 mmol/L [facility] CO2 23 22 - 31 mmol/L [facility] Anion Gap 17 (H) 5 - 15 mmol/L [facility] Calcium 8.3 (L) 8.5 - 10.5 mg/dL [facility] Estimated GFR 7 (L) >=60 [facility] Comment: This estimated GFR (eGFR) [...] the following links into your internet browser. [email or web address]/DHnkdep http://[employer]/DHMCnkf Specimen Anatomical Collection Method Collection Time Receive d Time (Source) Location / / Volume Laterality Blood specimen 01/16/2017 10:06 7 (specimen) AM EDT 10:13 AM EDT Resulting Agency Comment Spec In Lab Ramos Kemp APRN CHEMISTRY ORDERABLES Performing Organization Address City/State/ZIP Code Phon e Number [address] Ethanol Level (01/16/2017 10:06 AM EDT) P athologist Signature Ethanol Lvl <100 mg/L [facility] Comment: Greater than 800 mg/L [...] Garland MD CHEMISTRY ORDERABLES Performing Organization Address City/[facility]/ZIP [place] [address] Ethanol Level (01/16/2017 7:28 AM EDT) P athologist Signature Ethanol Lvl <100 mg/L [facility] Comment: Greater than 800 mg/L [...] Organization Address City/State/ZIP Code Phon e Number [address] (ABNORMAL) Acetaminophen level (01/16/2017 7:28 AM EDT) athologist Signature Acetamin Lvl <5 (L) 10 - 30 [facility] mg/L [facility] Comment: Levels >150 mg/L at 4 [...] Garland MD CHEMISTRY ORDERABLES Performing Organization Address City/[facility] Phon e Number [address] Salicylate (01/16/2017 7:28 AM EDT) athologist Signature Salicylate Lvl <20 mg/L [facility] Comment: Therapeutic Range: ??< 200 [...] Garland MD CHEMISTRY ORDERABLES Performing Organization Address City/[facility]/ZIP Code Phon e Number [address] Chloride, urine, random (01/16/2017 6:16 AM EDT) athologist Signature U Chloride <20 mmol/L [facility] Specimen Anatomical Collection Method Collection Time Receive d Time (Source) Location / / Volume Laterality Urine specimen Urine / Unknown 01/16/2017 6:16 AM 11/2016 6:25 (specimen) EDT AM EDT Resulting Agency Comment Spec In Lab Nakul Garland MD URINE ORDERABLES Performing Organization Address City/[facility]/ZIP Code Phon e Number [address] Potassium, urine, random (01/16/2017 6:16 AM EDT) athologist Signature U Potassium 79 mmol/L [facility] Specimen Anatomical Collection Method Collection Time Receive d Time (Source) Location / / Volume Laterality Urine specimen Urine / Unknown 01/16/2017 6:16 AM 060 11/2016 6:25 (specimen) EDT AM EDT Resulting Agency Comment Spec In Lab Nakul Garland MD URINE ORDERABLES Performing Organization Address City/[facility]/ZIP Code Phon e Number [address] Osmolality, urine, random (01/16/2017 6:16 AM EDT) athologist Signature U Osmolality 319 50 - 1,200 [facility] mOsm/kg [facility] LABORATORY Specimen Anatomical Collection Method Collection Time Receive d Time (Source) Location / / Volume Laterality Urine specimen 01/16/2017 6:16 AM 017 6:25 (specimen) EDT AM EDT Resulting Agency Comment Spec In Lab Nakul Garland MD URINE ORDERABLES Performing Organization Address City/[facility]/ZIP Code [place] [address] Creatinine, urine, random (01/16/2017 6:16 AM EDT) athologist Signature U Creatinine 140 mg/dL [facility] Specimen Anatomical Collection Method Collection Time Receive d Time (Source) Location / / Volume Laterality Urine specimen 01/16/2017 6:16 AM 017 6:25 (specimen) EDT AM EDT Resulting Agency Comment Spec In Lab Nakul Garland MD URINE ORDERABLES Performing Organization Address City/[facility]/ZIP [place] [address] Urea nitrogen, urine, random (01/16/2017 6:16 AM EDT) athologist Signature U Urea 258 mg/dL [facility] LABORATORY Specimen Anatomical Collection Method Collection Time Receive d Time (Source) Location / / Volume Laterality Urine specimen 01/16/2017 6:16 AM 017 6:25 (specimen) EDT AM EDT Resulting Agency Comment Spec In Lab Nakul Garland MD URINE ORDERABLES Performing Organization Address [facility]/ZIP [facility] [place] [address] Sodium, urine, random (01/16/2017 6:16 AM EDT) athologist Signature U Sodium 25 mmol/L [facility] Specimen Anatomical Collection Method Collection Time Receive d Time (Source) Location / / Volume Laterality Urine specimen 01/16/2017 6:16 AM 017 6:25 (specimen) EDT AM EDT Resulting Agency Comment Spec In Lab Nakul Garland MD URINE ORDERABLES Performing Organization Address [facility]/RUST Code Phon e Number [address] EKG 12 Lead (01/16/2017 4:37 AM EDT) [facility] gist Method Time Signature Ventricular rate 69 BPM MUSE SYSTEM Atrial Rate 69 BPM MUSE SYSTEM P-R Interval 168 ms MUSE SYSTEM QRS Duration 100 ms MUSE SYSTEM Q-T Interval 400 ms MUSE SYSTEM QTC Calculated 428 ms MUSE SYSTEM (Bezet) Calculated P [place] 71 degrees MUSE SYSTEM Calculated R [place] 66 degrees MUSE SYSTEM Calculated T [place] 15 degrees MUSE SYSTEM INTERPRETATION Normal sinus [...] Garland MD ECG ORDERABLES Performing Organization Address City/[facility]/ZIP Code Phon e Number MUSE SYSTEM pro-Brain Natriuretic Peptide (01/16/2017 3:32 AM EDT) P athologist Signature ProBNP 115 <=125 pg/mL [facility] Specimen Anatomical Collection Method Collection Time Receive d Time (Source) Location / / Volume Laterality Blood specimen Venous Draw / 01/16/2017 3:32 AM 2016 8:03 (specimen) Unknown EDT AM EDT Resulting Agency Comment Spec In Lab Nakul Garland MD CHEMISTRY ORDERABLES Performing Organization Address City/[facility]/ZIP Code Phon e Number [address] Triglyceride (01/16/2017 3:32 AM EDT) athologist Signature Triglycerides 113 <=199 [facility] mg/dL [facility] LABORATORY Specimen Anatomical Collection Method Collection Time Receive d Time (Source) Location / / Volume Laterality Blood specimen Venous Draw / 01/16/2017 3:32 AM 2016 3:39 (specimen) Unknown EDT AM EDT Resulting Agency Comment Spec In Lab Nakul Garland MD CHEMISTRY ORDERABLES Performing Organization Address City/[facility]/ZIP Code Phon e Number [address] (ABNORMAL) Osmolality (01/16/2017 3:32 AM EDT) athologist [facility] Osmolality 303 (H) 275 - 295 [facility] mOsm/kg [facility] LABORATORY Specimen Anatomical Collection Method Collection Time Receive d Time (Source) Location / / Volume Laterality Blood specimen Venous Draw / 01/16/2017 3:32 AM 2016 3:39 (specimen) Unknown EDT AM EDT Resulting Agency Comment Spec In Lab Nakul Garland MD CHEMISTRY ORDERABLES Performing Organization Address City/[facility]/ZIP Code Phon e Number [address] ABORH Recheck Status (01/16/2017 3:32 AM EDT) Patholo gist Method Time Signature ABORH Type Completed [facility] LABORATORY Specimen Anatomical Collection Method Collection Time Receive d Time (Source) Location / / Volume Laterality Blood specimen Venous Draw / 01/16/2017 3:32 AM 2016 3:55 (specimen) Unknown EDT AM EDT Resulting Agency Comment Spec In Lab Nakul Garland MD BLOOD BANK ORDERABLES Performing Organization Address City/[facility]/ZIP Code Phon e Number [address] Scan, Peripheral Blood (01/16/2017 3:32 AM EDT) P athologist Signature Plat Estimate Normal [facility] RBC Morphology Normal [facility] Specimen Anatomical Collection Method Collection Time Receive d Time (Source) Location / / Volume Laterality Blood specimen 01/16/2017 3:32 AM 017 3:37 (specimen) EDT AM EDT Resulting Agency Comment Spec In Lab Nakul Garland MD HEMATOLOGY ORDERABLES Performing Organization Address City/[facility]/ZIP Code Phon e Number [address] Selected Cell Screen (01/16/2017 3:32 AM EDT) Component Value Ref Test Analysis Performed At [facility] [employer] Range Method Time Signature Ab Screen Previously [...] MD BLOOD BANK ORDERABLES Performing Organization Address City/[facility]/ZIP Code Phon e Number [address] ABORh Type Manual (01/16/2017 3:32 AM EDT) [facility] [employer] Method Time Signature Expires at 01/19/2017 [place] [id number] on: [facility] LABORATORY ABORh Type O Pos [facility] Specimen Anatomical Collection Method Collection Time Receive d Time (Source) Location / / Volume Laterality Blood specimen Venous Draw / 01/16/2017 3:32 AM 2016 3:55 (specimen) Unknown EDT AM EDT Resulting Agency Comment Spec In Lab Nakul Garland MD BLOOD BANK ORDERABLES Performing Organization Address City/State/[place] [address] (ABNORMAL) Differential, Automated (01/16/2017 3:32 AM EDT) [facility] Method Time Signature Neutrophils % 70.1 % [facility] Neutr Abs (ANC) 10.29 (H) 1.70 - [facility] 6.10 [facility] x10(3)/[facility] LABORATORY Lymphocytes % 16.6 % [facility] Lymphocytes Abs 2.4 0.9 - 3.2 [facility] x10(3)/[facility] LABORATORY Monocytes % 11.5 % [facility] Monocyte Abs 1.7 (H) 0.3 - 0.9 [facility] x10(3)/[facility] LABORATORY Eosinophils % 0.7 % [facility] Eosinophils Abs 0.1 0.0 - 0.4 [facility] x10(3)/[facility] LABORATORY Basophils % 0.1 % [facility] Basophils Abs 0.0 0.0 - 0.1 [facility] x10(3)/[facility] LABORATORY Immature Gran % 1.00 % [facility] Comment: Immature granulocytes(IG's)percentage an d absolute count will include metamyelocytes, myelocytes, and promyelo cytes. Blood smears from CBCs yielding IG's will be scanned manually for concor dance. If this scan disagrees with the automated IG or if promyelocytes are not ed, a manual differential will be performed. Surekha Gran Abs 0.14 (H) 0.00 - 0.04 x10(3)/[facility] LABORATORY Specimen Anatomical Collection Method Collection Time Receive d Time (Source) Location / / Volume Laterality Blood specimen 01/16/2017 3:32 AM 017 3:37 (specimen) EDT AM EDT Resulting Agency Comment Spec In Lab Nakul Garland MD HEMATOLOGY ORDERABLES Performing Organization Address City/State/[place] [address] (ABNORMAL) Hemogram (01/16/2017 3:32 AM EDT) Analysis Performed At Patho logist Time Signature WBC 14.7 (H) 4.0 - 9.5 [facility] LABORATORY RBC 3.86 (L) 4.00 - [place] 5.21 [facility] x10(6)/[facility] LABORATORY Hemoglobin 11.1 (L) 11.7 - [facility] 15.5 gm/dL [facility] LABORATORY Hematocrit 32.1 (L) 35.7 - [facility] 45.8 % [facility] LABORATORY MCV 83.2 82.6 - [facility] 94.[address] [facility] LABORATORY MCH 28.8 27.1 - [place] 32.0 pg [facility] LABORATORY MCHC 34.6 31.7 - [facility] JAY 35.0 gm/dL [facility] [facility] Platelets 227 145 - 357 [facility] x10(3)/[facility] LABORATORY RDWSD 43.0 37.0 - [facility] 46.[address] [facility] LABORATORY RDWCV 14.2 (H) 11.5 - [facility] 14.1 % [facility] MPV 11.7 7.6 - 12.9 [facility] LABORATORY nRBC % Auto 0.0 % [facility] nRBC Abs Auto 0.000 0.000 - [facility] 0.000 [facility] x10(3)/[facility] LABORATORY Specimen Anatomical Collection Method Collection Time Receive d Time (Source) Location / / Volume Laterality Blood specimen 01/16/2017 3:32 AM 017 3:37 (specimen) EDT AM EDT Resulting Agency Comment Spec In Lab Nakul Garland MD HEMATOLOGY ORDERABLES Performing Organization Address City/State/[place] [address] (ABNORMAL) APTT (01/16/2017 3:32 AM EDT) P athologist Signature PTT 50 (H) 25 - 35 sec [facility] Comment: The recommended therapeutic range for fu ll dose, unfractionated heparin at [facility] is 80 ? 114 seconds. [...] Garland MD HEMATOLOGY ORDERABLES Performing Organization Address [facility] [place] [address] (ABNORMAL) Prothrombin Time (01/16/2017 3:32 AM EDT) athologist Signature PT 15.7 (H) 12.0 - 15.0 [facility] LABORATORY Comment: An INR <2.0 indicates [...] circumstances. INR 1.2 (H) 0.9 - 1.1 [facility] LABORATORY Specimen Anatomical Collection Method Collection Time Receive d Time (Source) Location / / Volume Laterality Blood specimen 01/16/2017 3:32 AM 017 3:37 (specimen) EDT AM EDT Resulting Agency Comment Spec In Lab Nakul Garland MD HEMATOLOGY ORDERABLES Performing Organization Address [facility] [place] [address] (ABNORMAL) Hepatic Function Panel (01/16/2017 3:32 AM EDT) athologist Signature Total Protein 5.9 (L) 6.1 - 8.0 [facility] gm/dL [facility] Albumin 2.9 (L) 3.2 - 5.2 [place] gm/dL [facility] AST 19 0 - 30 [place] unit/L [facility] ALT 30 0 - 30 [facility] unit/L [facility] Alk Phos 56 40 - 104 [facility]L [facility] Total 0.7 0.2 - 1.3 [place] Bilirubin mg/dL [facility] Bili, Direct 0.1 0.0 - 0.3 [facility] JAY mg/dL [facility] Specimen Anatomical Collection Method Collection Time Receive d Time (Source) Location / / Volume Laterality Blood specimen 01/16/2017 3:32 AM 017 3:37 (specimen) EDT AM EDT Resulting Agency Comment Spec In Lab Nakul Garland MD CHEMISTRY ORDERABLES Performing Organization Address City/[facility]/[place] Code Phon e Number [address] (ABNORMAL) Phosphorus (01/16/2017 3:32 AM EDT) P athologist Signature Phosphorus 5.1 (H) 2.5 - 4.5 [facility] JAY mg/dL [facility] Specimen Anatomical Collection Method Collection Time Receive d Time (Source) Location / / Volume Laterality Blood specimen 01/16/2017 3:32 AM 017 3:37 (specimen) EDT AM EDT Resulting Agency Comment Spec In Lab Nakul Garland MD CHEMISTRY ORDERABLES Performing Organization Address City/[facility]/ZIP [place] [address] (ABNORMAL) Magnesium (01/16/2017 3:32 AM EDT) P athologist Signature Magnesium 1.08 (H) 0.69 - 1.07 [place] mmol/L [facility] Specimen Anatomical Collection Method Collection Time Receive d Time (Source) Location / / Volume Laterality Blood specimen 01/16/2017 3:32 AM 017 3:37 (specimen) EDT AM EDT Resulting Agency Comment Spec In Lab Nakul Garland MD CHEMISTRY ORDERABLES Performing Organization Address City/[facility]/ZIP [place] [address] (ABNORMAL) Basic Metabolic Panel (non-fasting) (01/16/2017 3:32 AM EDT) P athologist Signature Glucose Lvl 114 65 - 199 [facility] mg/dL [facility] Comment: Diabetes: >=200 mg/dL plus symp toms BUN 130 (H) 8 - 18 mg/dL [facility] Comment: result rechecked-shayla Creatinine 5.99 (H) 0.70 - 1.20 mg/dL [facility] Comment: Please note that the pediatric reference intervals supplied above were not validated at [facility]. Results from pediatri c patients should be interpreted in conjunction to the patient's age, height and muscle mass. Sodium 119 (Critical) 135 - 145 mmol/L [facility] Comment: Result rechecked. Called by: shayla, Read back by: сергей colunga , Date/Time:01/16/17 04:20. Potassium 5.9 (H) 3.5 - 5.0 mmol/L [facility] Comment: Please note: ??Patients with WBC >100,00 0 may have falsely elevated Potassium levels. ??For accurate Potassium quantif ication in these patients send serum separator tube (gold top) for subsequent determinations. ??Contact the Clinical Chemistry Laboratory if there are any qu estions. Chloride 81 (L) 98 - 107 mmol/L [facility] CO2 24 22 - 31 mmol/L [facility] Anion Gap 14 5 - 15 mmol/L [facility] Calcium 8.6 8.5 - 10.5 mg/dL [facility] Estimated GFR 7 (L) >=60 [facility] Comment: This estimated GFR (eGFR) [...] the following links into your internet browser. http://[employer]/DHnkdep http://[employer]/DHMCnkf Specimen Anatomical Collection Method Collection Time Receive d Time (Source) Location / / Volume Laterality Blood specimen 01/16/2017 3:32 AM 017 3:37 (specimen) EDT AM EDT Resulting Agency Comment Spec In Lab Nakul Garland MD CHEMISTRY ORDERABLES Performing Organization Address City/[facility]/[place] [address] Film Library- Storage Only CT Chest (01/10/2017 12:00 AM EDT) Specimen (Source) Anatomical Location Collection Method / Collectio n Time Received Time / Laterality Volume Narrative [facility] - 01/16/2017 12:30 PM EDT This exam is for storage only and is aut o-finalizing. Nakul Garland MD IMG FILM LIBRARY ORDERABLES Performing Organization Address City/[facility]/ZIP Code Phon e Number [place], [place] documented in this encounter Visit Diagnoses [...] 1 dose, Ericka 01/20/17 at 1900, Ad wildlife rehabilitator over 120 Minutes multivitamin (THERAGRAN) tablet 1 [...] Routine documented in this encounter Care Teams Tonger Relationship Specialty Start Date End Date lAphonso Murphy MD PCP - General Family Medicine 02/19/[address] [place] [address] documented as of this encounter
--- OUTSIDE RECORDS SUMMARY | 2022-05-03 09:11 | XMS_ITS | Encounter Summary ---
:1955 Author Organization [facility] [place] [address] Care Team Providers Name Role Phone Sunitha Milligan MD Primary Care Provider Encounter Details Date Type Department Care Team Description 06/11/2014 Hospital Encounter Laboratory Luke Christianson, Pleural effusion on [facility] [address] DIAGNOSTIC [phone] [place] [address] Social History Tobacco Use Types Packs/Day Years [...] athologist Signature Platelets 251 145 - 370 [facility] x[facility](3[facility] Specimen Anatomical Collection Method Collection Time Receive d Time (Source) Location / / Volume Laterality Blood specimen 06/11/2014 11:26 4 (specimen) AM EDT 11:28 AM EDT Resulting Agency Comment Spec In Lab Luke Christianson MD HEMATOLOGY ORDERABLES Performing Organization Address City/State/[place] [address] [facility] documented in this encounter Visit Diagnoses Diagnosis Pleural effusion on right Unspecified pleural effusion documented in this encounter Care Teams Etl Application Developer Relationship Specialty Start Date End Date Sunitha Milligan MD PCP - General 07/07/10 02/18/16 [address] [place] [address] documented as of this encounter
--- OUTSIDE RECORDS SUMMARY | 2022-05-03 09:11 | XMS_ITS | Encounter Summary ---
:1955 Author Organization [facility] [place] [address] Care Team Providers Name Role Phone Sunitha Milligan MD Primary Care Provider Encounter Details Date Type Department Care Team Description 06/11/2014 Orders Only Radiology Mendy Talbot, Pleural effusion [facility] (Primary Dx) [place] [address] [address] [phone] DIAGNOSTIC RADIOLOGY [place], [place] [address] Social History Tobacco Use Types Packs/Day Years Used Date Former Smoker Sex Assigned at Date Recorded Not on file documented as of this encounter Plan of Treatment Not on filedocumented as of this encounter Visit Diagnoses Diagnosis Pleural effusion - Primary Unspecified pleural effusion documented in this encounter Care Teams Cost Accounting Analyst Relationship Specialty Start Date End Date Sunitha Milligan MD PCP - General 07/07/10 02/18/16 [address] [place], [place] [address] documented as of this encounter
--- OUTSIDE RECORDS SUMMARY | 2022-05-03 09:11 | XMS_ITS | Encounter Summary ---
:1955 Author Organization [facility] Address [address] [place] [address] Care Team Providers Name Role Phone Alphonso Murphy MD Primary Care Provider [phone] Encounter Details Date Type Department Care Team Description 01/10/2017 Hospital Encounter [place] [address] Social History Tobacco Use Types Packs/Day [...] by Each Nare 0 11/1305/21/2019 50 mcg/actuation [place], route daily. Suspension furosemide (LASIX) 40 Take [...] Organization Address City/State/ZIP Code Phon e Number [place], [place] documented in this encounter Visit Diagnoses Not on filedocumented in this encounter Care Teams Solidworks Designer Relationship Specialty Start Date End Date Alphonso Murphy MD PCP - General Family Medicine 02/19/[address] [place] [address] documented as of this encounter
--- OUTSIDE RECORDS SUMMARY | 2022-05-03 09:11 | XMS_ITS | Encounter Summary ---
:1955 Author Organization [facility] [place] [address] Care Team Providers Name Role Phone Alphonso Murphy MD Primary Care Provider Encounter Details Date Type Department Care Team Description 01/17/2017 Hospital Encounter [place] [address] Social History Tobacco Use Types Packs/Day [...] by Each Nare 0 11/1305/21/2019 50 mcg/actuation [place], route daily. Suspension furosemide (LASIX) 40 Take [...] chest with intravenous contrast was performed at [facility]. COMPARISON: CTA of the chest 02/19/16 [...] chest with intravenous contrast was performed at [facility]. COMPARISON: CTA of the chest 02/19/16 [...] on filedocumented in this encounter Care Teams Paper Rewinder Relationship Specialty Start Date End Date Alphonso Murphy MD PCP - General Family Medicine 02/19/[address] [place] [address] documented as of this encounter
--- OUTSIDE RECORDS SUMMARY | 2022-05-03 09:11 | XMS_ITS | Encounter Summary ---
:1955 Author Organization [facility] [place] [address] Care Team Providers Name Role Phone Sunitha Milligan MD Primary Care Provider Encounter Details Date Type Department Care Team Description 08/01/2014 Telephone [facility]ology at [facility] Padmini Lozano MD [facility] [place] [address] PULMONARY MEDICINE [phone] [place], [place] [address] (Wo rk) Social History Tobacco [...] effusion documented in this encounter Care Teams Twill Cutter Relationship Specialty Start Date End Date Sunitha Milligan MD PCP - General 07/07/10 02/18/16 [address] [place] [address] documented as of this encounter
--- OUTSIDE RECORDS SUMMARY | 2022-05-03 09:12 | XMS_ITS | Encounter Summary ---
:1955 Author Organization [facility] [place] [address] Care Team Providers Name Role Phone Sunitha Milligan MD Primary Care Provider Encounter Details Date Type Department Care Team Description 11/01/[address] [facility], DR VICTOR [facility] Marek Julien MD [facility] [place] [address] [place] [address] Social History Tobacco Use Types Packs/Day [...] is well maintained. ?? Procedure Note Rory Landon MD - 11/01/2011Format ting of this note [...] on filedocumented in this encounter Care Teams Crab Fisherman Relationship Specialty Start Date End Date Sunitha Milligan MD PCP - General 07/07/10 02/18/16 [address] [place] [address] documented as of this encounter
--- OUTSIDE RECORDS SUMMARY | 2022-05-03 09:12 | XMS_ITS | Encounter Summary ---
:1955 Author Organization [facility] [place] [address] Care Team Providers Name Role Phone Sunitha Milligan MD Primary Care Provider Encounter Details Date Type Department Care Team Description 08/26/2010 Procedure visit [place] [address] Social History Tobacco Use Types Packs/Day Years Used Date Never Assessed Sex Assigned at Date Recorded Not on file documented as of this encounter Plan of Treatment Not on filedocumented as of this encounter Visit Diagnoses Not on filedocumented in this encounter Care Teams Electrical Apprentice Relationship Specialty Start Date End Date Sunitha Milligan MD PCP - General 07/07/10 02/18/16 [address] [place], [place] [address] documented as of this encounter
--- OUTSIDE RECORDS SUMMARY | 2022-05-03 09:12 | XMS_ITS | Encounter Summary ---
:1955 Author Organization [facility] [place] [address] Care Team Providers Name Role Phone Sunitha Milligan MD Primary Care Provider Encounter Details Date Type Department Care Team Description 04/30/[address] Scan [facility], DR VICTOR [facility] Mariam Espino MD [facility] [place] [address] [place] [address] Social History Tobacco Use Types Packs/Day [...] Routine documented in this encounter Care Teams Locker Room Manager Relationship Specialty Start Date End Date Sunitha Milligan MD PCP - General 07/07/10 02/18/16 [address] [place] [address] documented as of this encounter
--- OUTSIDE RECORDS SUMMARY | 2022-05-03 09:12 | XMS_ITS | Encounter Summary ---
:1955 Author Organization [facility] Address [place] [address] Care Team Providers Name Role Phone Sunitha Milligan MD Primary Care Provider Reason for Visit Reason Onset Date Comments Blood Infection 12/14/2011 Encounter Details Date Type Department Care Team Description 12/14/2011 Telephone [facility] [place] [facility] Terry Doss MD Blood Infection [facility] [place] [address] [address] [phone] [place], [place] [address] (Wo rk) Social History Tobacco Use Types Packs/Day Years Used Date Never Assessed Sex Assigned at Date Recorded Not on file documented as of this encounter Miscellaneous Notes Telephone Encounter - Delmis Easley RN - 12/14/2011 12:50 PM EDT Radha called she went to the ER at [facility] last evening with a cough, SOB [...] tear. Implants: All implants are from the [employer] distal femoral replacement system. 1. Size 12 [...] on filedocumented in this encounter Care Teams Dye House Supervisor Relationship Specialty Start Date End Date Sunitha Milligan MD PCP - General 07/07/10 02/18/[address] [place] [address] documented as of this encounter
--- OUTSIDE RECORDS SUMMARY | 2022-05-03 09:12 | XMS_ITS | Encounter Summary ---
:1955 Author Organization [facility] [place] [address] Care Team Providers Name Role Phone Sunitha Milligan MD Primary Care Provider Encounter Details Date Type Department Care Team Description 12/03/2010 Abstract [facility]ious Disease [place] [facility] Vaishali Olsen, [place] [address] Social History Tobacco Use Types Packs/Day Years Used Date Never Assessed Sex Assigned at Date Recorded Not on file documented as of this encounter Plan of Treatment Not on filedocumented as of this encounter Visit Diagnoses Not on filedocumented in this encounter Care Teams Abstractor Relationship Specialty Start Date End Date Sunitha Milligan MD PCP - General 07/07/10 02/18/16 [address] [place], [place] [address] documented as of this encounter
--- OUTSIDE RECORDS SUMMARY | 2022-05-03 09:12 | XMS_ITS | Encounter Summary ---
:1955 Author Organization [facility] [place] [address] Care Team Providers Name Role Phone Sunitha Trotter MD Primary Care Provider Encounter Details Date Type Department Care Team Description 03/24/2014 Orders Only Radiology at [facility] Juan Hanks Pleural effusion on [facility] MD fontenot (Primary Dx) [place] [address] RADIOLOG[address] DEPT. [place] [id number] Social History Tobacco Use Types Packs/Day Years [...] recent fall. Attempted pleural drain placement at [facility] but unsuccessful due to body habitus Request from [facility] hospitalist for right pleural drain. Past Medical/Surgical [...] BUN 17 12/18/2013 CREATININE 0.66* 12/18/2013 Imagin03/22/14 [facility] CT Physical Exam: Pending (to be performed in angio the day of procedure) ASA: Pending (to be assessed in angio the day of procedure) Mallampati Class: Pending (to be assessed in angio the day of procedure) Assessment: 58 y.o. female recent fall presented to [facility] with tachypnea with new right pleural fluid (suspected blood) on OSH CT (03/22/14) . Attempted pleural drain placement at [facility] but unsuccessful due to body habitus Plan: US-guided right pleural drain then transport back to [facility] Labs to be performed day of procedure: none Medication to STOP: none Sedation: Moderate sedation per IR RN protocols Prophylactic antibiotic: none Additional medications for procedure: none Planned access site: right thorax Position: left side down Consent: Pending - Juan Hanks MD (Pager #[phone]) 03/24/2014 documented in this encounter Plan of Treatment Not on filedocumented as of this encounter Visit Diagnoses Diagnosis Pleural effusion on right - Primary Unspecified pleural effusion documented in this encounter Care Teams Manager Meat Relationship Specialty Start Date End Date Sunitha Trotter MD PCP - General 07/07/10 02/18/[address] [place] [address] documented as of this encounter
--- OUTSIDE RECORDS SUMMARY | 2022-05-03 09:12 | XMS_ITS | Encounter Summary ---
:1955 Author Organization [place] [address] Care Team Providers Name Role Phone Sunitha Milligan MD Primary Care Provider Encounter Details Date Type Department Care Team Description 06/11/2014 Hospital Encounter Laboratory Padmini Lozano, Hyperglycemia; [facility] Pleural effusion [facility] [address] PULMONARY [phone] [place], [place] [address] Social History Tobacco Use Types [...] Address City/State/[place] [address] [facility] Protein, total (06/11/2014 11:26 AM EDT) P athologist Signature Total Protein 6.8 6.4 - 8.3 [facility] gm/dL [facility] Specimen Anatomical Collection Method Collection Time Receive d Time (Source) Location / / Volume Laterality Blood specimen 06/11/2014 11:26 4 (specimen) AM EDT 11:28 AM EDT Resulting Agency Comment Spec In Lab Padmini Lozano MD CHEMISTRY ORDERABLES Performing Organization Address City/[facility]/ZIP Code Phon e Number [address] [facility] Glucose, random (06/11/2014 11:26 AM EDT) P athologist Signature Glucose Lvl 120 60 - 199 [facility] mg/dL [facility] Comment: Diabetes: >=200 mg/dL plus symp toms Specimen Anatomical Collection Method Collection Time Receive d Time (Source) Location / / Volume Laterality Blood specimen 06/11/2014 11:26 4 (specimen) AM EDT 11:28 AM EDT Resulting Agency Comment Spec In Lab Padmini Lozano MD CHEMISTRY ORDERABLES Performing Organization Address City/[facility]/ZIP Code Phon e Number [address] [facility] documented in this encounter Visit Diagnoses Diagnosis Hyperglycemia Other abnormal glucose Pleural effusion Unspecified pleural effusion documented in this encounter Care Teams Traffic Technician Relationship Specialty Start Date End Date Sunitha Mill[place] MD PCP - General 07/07/10 02/18/16 [address] [place] [address] documented as of this encounter
--- OUTSIDE RECORDS SUMMARY | 2022-05-03 09:12 | XMS_ITS | Encounter Summary ---
:1955 Author Organization [facility] Address [facility] [place] [address] Care Team Providers Name Role Phone Sunitha Mill[place] MD Primary Care Provider Encounter Details Date Type Department Care Team Description 08/24/[address] Scan at [facility], DR KAYLEIGH [facility] Sunitha Martinez MD [address] [place], [place] [address] [place] [address] Social History Tobacco Use Types Packs/Day [...] on filedocumented in this encounter Care Teams Computer System Specialist Relationship Specialty Start Date End Date Sunitha Mill[place] MD PCP - General 07/07/10 02/18/16 [address] [place] [address] documented as of this encounter
--- OUTSIDE RECORDS SUMMARY | 2022-05-03 09:12 | XMS_ITS | Encounter Summary ---
:1955 Author Organization [facility] [place] [address] Care Team Providers Name Role Phone Sunitha Milligan MD Primary Care Provider Reason for Visit Reason Comments Chest Pain Encounter Details Date Type Department Care Team Description 12/18/2013 Emergency Emergency Department Libby Mistry A cute exacerbation of Margy Barber MD [facility] [address] [facility] [place] [address] [place] [address] [phone] Social History Tobacco Use Types Packs/Day Years [...] or for any new and concerning symptoms. [facility] Chronic Obstructive Pulmonary Disease (COPD): After [...] properly. ?? Do not take any vitamins, ihsl-ovp-sxkuyfn medicine, or herbal products without talking to [...] ?? 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 ?? Learn breathing methods--such [...] more? Visit our health information library at [email or web address] You can also view health information on ImmuRx, your personal patient account. Log in or sign up today. Enter X915 in the search box to learn more about Chronic Obstructive Pulmonary Disease (COPD): AfterYour Visit. ?? [phone] [employer]. Care instructions adapted under license by [facility]. This care instruction is for use with your licensed healthcare professional. If you have questionsabout a medical condition or this instruction, always ask your healthcare professional. [employer] disclaims any warranty or liability for your use of this information. Content Version: 9.9.415959; Last Revised: December 29, 2012 documented in [...] by MD, but those labs were reassuring vbdn-ygu-utki. ACS less likely to explain diffuse wheezing [...] 12/18/2013 1:25 PM Result s for this ([facility] EDT procedure are i n the results [...] Organization Address City/State/ZIP Code Phon e Number [place] [phone] CERNER MILLENNIUM (ABNORMAL) Basic [...] intervals supplied above were not validated at [facility]. Results from pediatri c patients should be [...] Organization Address City/State/[place] [address] CERNER MILLENNIUM CBC (with [...] Jr., MD HEMATOLOGY ORDERABLES Performing Organization Address City/[facility]/ZIP Code Phon e Number [address] CERNER MILLENNIUM Cardiac Enzymes (12/18/2013 1:25 PM EDT) P athologist Signature Troponin-T <0.03 <=0.03 CERNER ng/mL [facility] Comment: 0.03 ng/mL: Represents the 99th [...] consensus document of the Joint Society of Cardiology/[place] College o f [employer]iology Committee for the redefinition of myocardial infarction. ? ?Journal of the [place] College of [employer]iology 2000; 36: 959-969] CK, Total 106 0 - 160 unit/L [employer] UM Specimen Anatomical Collection Method Collection Time Receive d Time (Source) Location / / Volume Laterality Blood specimen 12/18/2013 1:25 PM 014 1:40 (specimen) EDT PM EDT Resulting Agency Comment Spec In Lab Shahram Oscar Jr., MD CHEMISTRY ORDERABLES Performing Organization Address City/[facility]/ZIP Code Phon e Number [address] CERNER MILLENNIUM Blue Tube HOLD (12/18/2013 1:25 PM EDT) P athologist Signature Blue Hold Sample in [facility] lab. [facility] Specimen Anatomical Collection Method Collection Time Receive d Time (Source) Location / / Volume Laterality Blood specimen 12/18/2013 1:25 PM 05/06/2 014 1:40 (specimen) EDT PM EDT Shahram Oscar Jr., MD HEMATOLOGY ORDERABLES Performing Organization Address City/State/ZIP Code Phon e Number [place] [phone] ARNAV Guides[employer]IUM EKG 12 Lead (12/18/2013 1:13 PM EDT) Component Value Ref Range Test Analysis Performed Pathologis t Method Time At Signature Ventricular rate 102 BPM MUSE SYSTEM Atrial Rate 102 BPM MUSE SYSTEM P-R Interval 162 ms MUSE SYSTEM QRS Duration 88 ms MUSE SYSTEM Q-T Interval 370 ms MUSE SYSTEM QTC Calculated 482 ms MUSE SYSTEM (Bezet) Calculated P [place] 60 degrees MUSE SYSTEM Calculated R [place] 63 degrees MUSE SYSTEM Calculated T [place] 30 degrees MUSE SYSTEM INTERPRETATION Sinus tachycardia [...] STAT documented in this encounter Care Teams Structural Test Engineer Relationship Specialty Start Date End Date Sunitha Milligan MD PCP - General 07/07/10 02/18/[address] [place] [address] [phone] documented as of this encounter
--- OUTSIDE RECORDS SUMMARY | 2022-05-03 09:12 | XMS_ITS | Encounter Summary ---
:1955 Author Organization [facility] [place] [address] Care Team Providers Name Role Phone Sunitha Milligan MD Primary Care Provider Encounter Details Date Type Department Care Team Description 02/22/2013 Orders Only Orth[place]ed[place] [facility] [place] Doss, H/O total knee [facility] Ron coyle MD replacement ([place] [address] [address] Mora Dx) [phone] [place] [address] Social History Tobacco Use Types Packs/Day Years Used Date Never Assessed Sex Assigned at Date Recorded Not on file documented as of this encounter Plan of Treatment Not on filedocumented as of this encounter Visit Diagnoses Diagnosis H/O total knee replacement - Primary Knee joint replacement by other means documented in this encounter Care Teams Sales Associate Key Holder Relationship Specialty Start Date End Date Sunitha Milligan MD PCP - General 07/07/10 [address] [place] [phone] documented as of this encounter
--- OUTSIDE RECORDS SUMMARY | 2022-05-03 09:12 | XMS_ITS | Encounter Summary ---
:1955 Author Organization [facility] [place] [address] Care Team Providers Name Role Phone Sunitha Milligan MD Primary Care Provider Reason for Visit Reason Comments Referral Encounter Details Date Type Department Care Team Description 05/21/2014 Office Visit [place] [facility] Padmini Lozano, Health care maintenance ([facility] Dx); [facility] Lung nodule; Drive [facility] Pleural effusion; [place] [address] [address]; [phone] P[facility]IC[facility] [place] Pleural effusion, chylous [place], [place] [address] Social History Tobacco Use Types [...] access to your electronic medical record at [facility] and the ability to communicate with your [...] the instructions. Here is your activation code: [email or web address] Expires: 07/05/2014 11:14 AM Remember, myD-H is NOT for urgent needs! Always dial 911 for medical emergencies. -I will request your record in March 2014 from [facility] -I will schedule you for another drainage of right chest fluid. This will be performed by Interventional radiologist at [facility] -Once the above study is completed, I would like you to call me at [phone] to discuss the result. -Also I will [...] Eventually she was transferred on 03/24/[address] [facility] for US guided chest tube placement and was sent back to [facility] after the successful tube placement. I don't see any report of pleural fluid study in [facility]. She said doctors at [facility] may have sent the test, but she is unsure about the result. More recently in 04/2014, she had another CT scan PE protocol here at [facility], which demonstrated no evidence of PE ( [...] Aftercare TKAs 08/15/2004 PMHx: -COPD -morbid obesity -DVAID FHx: Non-contributory Social Hx: History Substance Use [...] results found for this basename: phart, po2art, tmf9dai Diagnostic Imaging: (I personally reviewed the radiographs [...] will try to obtain the record from [facility]. Even 1st tap result was negative for [...] of this patient. Please contact us at [phone] any further questions or requests. documented in [...] 1. PRG ?? US CHEST REAL TIME [70249 (CPT)] ?; ?? {CR} ? ; ?? {CR} ? ; ? VIR Proced ure Note ?A# ?? [id number] ?Indication: ?? 59 yo morbidly obese woman found to have right ?? pleural effusion after fall and right chest injury. Referred to [facility] for ?? chest tube placement on 03/24/14 and later returned to [facility]. Effusion seen on ?? recent CT scan [...] ; 1. PRG US CHEST REAL TIME [40310 (CPT)] ; {CR} ; {CR} ; VIR Procedure Note A# [id number] Indicat ion: 59 yo morbidly obese woman found to have right pleural effusion after fall and right chest injury. Referred to [facility] for chest tube placement on 03/24/14 and later returned to [facility]. Effusion seen on recent CT scan and [...] PA-C and Dr. Brandan Kelly Attending: Leonor ulcio ; {CR} Padmini Lozano MD IMG IR [...] Organization Address City/State/[place] [address] CERNER MILLENNIUM Protein, total [...] Organization Address City/State/ZIP Code Phon e Number [address] [facility] Glucose, random (06/11/2014 11:26 AM EDT) P athologist Signature Glucose Lvl 120 60 - 199 CERNER mg/dL [facility] Comment: Diabetes: >=200 mg/dL plus symp toms Specimen Anatomical Collection Method Collection Time Receive d Time (Source) Location / / Volume Laterality Blood specimen 06/11/2014 11:26 4 (specimen) AM EDT 11:28 AM EDT Resulting Agency Comment Spec In Lab Padmini Lozano MD CHEMISTRY ORDERABLES Performing Organization Address City/State/ZIP Code Phon e Number [address] [facility] Cytopathology Non-Gynecological (05/21/2014 6:11 PM EDT) Specimen Anatomical Collection Method Collection Time Receive d Time (Source) Location / / Volume Laterality AP Specimen 05/21/2014 6:11 PM 4 6:11 EDT PM EDT Narrative CERNER MILLENNIUM - 05/21/2014 6:11 PM E DT Specimen requisition ordered. ??Separate Pathology report to follow Padmini Lozano MD PATHOLOGY/CYTOLOGY ORDERABLE S Performing Organization Address City/State/ZIP Code Phon e Number [address] [facility] documented in this encounter Visit Diagnoses [...] nodule documented in this encounter Care Teams Piano Maker Relationship Specialty Start Date End Date Sunitha Milligan MD PCP - General 07/07/10 02/18/16 [address] [place] [address] documented as of this encounter
--- OUTSIDE RECORDS SUMMARY | 2022-05-03 09:12 | XMS_ITS | Encounter Summary ---
:1955 Author Organization [facility] [place] [address] Care Team Providers Name Role Phone Sunitha Trotter MD Primary Care Provider Encounter Details Date Type Department Care Team Description 06/11/2014 Hospital Encounter Radiology [facility], DR VICTOR Pleural effusion on right; [facility] Padmini Lozano MD [facility] [place] [address] [place] [address] Social History Tobacco Use Types [...] fall and right chest injury. Referred to [facility] [place] tube placement on 03/24/14 and later returned to [facility]. Effusion seen on recent CT scan [...] Werner RN - 06/07/2014 4:09 PM EDT [facility] NURSING DATABASE Name: CYN MASTERSON Date of : 1955 AGE 59 y.o. Address: [address] [address] (home) Mobile: No relevant phone numbers on [...] informed this patient that they require a tank wagon driver to drive them home after this procedure. In the absence of a tank wagon driver, IR will not be able to [...] TIME W/IMAGE DOCUMENTATION VIR Procedure Note A# [id number] Indication: 59 yo morbidly obese woman found to have right pleural effusion after fall and right chest injury. Referred to [facility] [place] chest tube placement on 03/24/14 and later returned to [facility]. Effusion seen on recent CT scan [...] 1. PRG ?? US CHEST REAL TIME [02449 (CPT)] ?; ?? {CR} ? ; ?? {CR} ? ; ? VIR Proced ure Note ?A# ?? [id number] ?Indication: ?? 59 yo morbidly obese woman found to have right ?? pleural effusion after fall and right chest injury. Referred to [facility] [place] ?? chest tube placement on 03/24/14 and later returned to [facility]. Effusion seen on ?? recent CT [...] ; 1. PRG US CHEST REAL TIME [59213 (CPT)] ; {CR} ; {CR} ; VIR Procedure Note A# [id number] Indicat ion: 59 yo morbidly obese woman found to have right pleural effusion after fall and right chest injury. Referred to [facility] for chest tube placement on 03/24/14 and later returned to [facility]. Effusion seen on recent CT scan [...] Platelets 251 145 - 370 CERNER x10(3)/mcL [facility] Specimen Anatomical Collection Method Collection Time Receive d Time (Source) Location / / Volume Laterality Blood specimen 06/11/2014 11:26 4 (specimen) AM EDT 11:28 AM EDT Resulting Agency Comment Spec In Lab Luke Christianson MD HEMATOLOGY ORDERABLES Performing Organization Address City/State/ZIP Code Phon e Number [place] [id number] [facility] documented in this encounter Visit Diagnoses [...] Procedure) documented in this encounter Care Teams Refrigeration Tech Relationship Specialty Start Date End Date Sunitha Trotetr MD PCP - General 07/07/10 02/18/16 [address] [place] [address] documented as of this encounter
--- OUTSIDE RECORDS SUMMARY | 2022-05-03 09:12 | XMS_ITS | Encounter Summary ---
:1955 Author Organization [facility] [place] [address] Care Team Providers Name Role Phone Sunitha Trotter MD Primary Care Provider Encounter Details Date Type Department Care Team Description 03/24/2014 Hospital Encounter Radiology [facility], DR VICTOR [facility] Brandan Kelly MD [facility] [place] [address] [place] [address] Social History Tobacco Use Types Packs/Day [...] Rios RN - 03/24/2014 1:20 PM EDT [facility] NURSING DATABASE Name: CYN MASTERSON Date of : 1955 AGE 58 y.o. Address: [address] [address] (home) Mobile: No relevant phone numbers on file. Referring Provider: Brandan Kelly Reason for Visit: Assessment: 58 y.o. female recent fall presented to [facility] with tachypnea with new right pleural fluid (suspected blood) on OSH CT (03/22/14) . Attempted pleural drain placement at [facility] but unsuccessful due to body habitus Plan: US-guided right pleural drain then transport back to [facility] (Assessment/plan from provider's note, bottom of [...] informed this patient that they require a catshovel driver to drive them home after this procedure. In the absence of a catshovel driver, IR will not be able to [...] uvula visible)?? - Juan Hanks MD (Pager #[phone]) 03/24/2014 VASCULAR AND INTERVENTIONAL RADIOLOGY FOCUSED H&P [...] recent fall. Attempted pleural drain placement at [facility] but unsuccessful due to body habitus Request from [facility] hospitalist for right pleural drain. Past [...] BUN 17 12/18/2013 CREATININE 0.66* 12/18/2013 Imagin03/22/14 [facility] CT Physical Exam: Pending (to be performed in angio the day of procedure) ASA: Pending (to be assessed in angio the day of procedure) Mallampati Class: Pending (to be assessed in angio the day of procedure) Assessment: 58 y.o. female recent fall presented to [facility] with tachypnea with new right pleural fluid (suspected blood) on OSH CT (03/22/14) . Attempted pleural drain placement at [facility] but unsuccessful due to body habitus Plan: US-guided right pleural drain then transport back to [facility] Labs to be performed day of procedure: none Medication to STOP: none Sedation: Moderate sedation per IR RN protocols Prophylactic antibiotic: none Additional medications for procedure: none Planned access site: right thorax Position: left side down Consent: Pending - Juan Hanks MD (Pager #[phone]) 03/24/2014 documented in this encounter Procedure Notes Brandan Kelly MD - 03/24/2014 1:28 PM EDT VIR PROCEDURE NOTE Procedure: U/S guided right chest tube placement. ACC#: [id number] Indication for Procedure: Cyn Masterson is a 58 y.o. female with tachypnea with new right pleural fluid (suspected blood) on OSH CT (03/22/14) and recent fall. Attempted pleural drain placement at [facility] but unsuccessful due to body habitus. [...] suture and capped for transport back to [facility]. Medications: Fentanyl 250mcg IV, 1% Lidocaine <10ccs subcutaneous. Est Blood Loss: <5cc. Complications: No immediate. Impression: 1. U/S guided right chest tube placement, 10Fr. 2. Catheter currently capped for the transport back to [facility]. Can be connected to suction drainage once pt back at [facility]. Resident/Fellow: Latonya. Attending: Dr. Leticia Johnson [...] U/S guided right chest tube placement. ?ACC#: [id number] ? Indication ?? for Procedure: Cyn Masterson is a 58 y.o. female with tachypnea with new right pleural fluid ?? (suspected blood) on OSH CT (03/22/14) and recent fal l. Attempted pleural drain ?? placement at [facility] but unsuccessful due to body ?? [...] suture and capped for transport back to [facility]. ? Medications: ?? Fentanyl 250mcg IV, 1% L idocaine <10ccs subcutaneous. ?Est ?? Blood Loss: <5cc. ?Complications: ?? No immediate. ?Impression: ?1. ?? U/S guided right chest tube placement, 1 0Fr. ?2. ?? Catheter currently capped for the transport back to [facility]. ?? Can b e connected to suction drainage once pt back ?? at [facility]. ?Resident/Fellow: ? ? Percarpio. ?Attending: ?? I, Dr. Kelly was present throughout this ?? procedure . ?; ?? {CR} ? Film and interpretation reviewed by the attending Procedure Note Brandan Kelly MD - 03/25/2014Formattin g of this note might be different from the original. ; VIR PROCEDURE NOTE Procedure: U/S lv ded right chest tube placement. ACC#: [id number] Indication for Procedure: Cyn Masterson is a 58 y.o. female with tachypnea with new right pleural fluid (suspected blood) on OSH CT (03/22/14) and recent fal l. Attempted pleural drain placement at [facility] but unsuccessful due to body hab [...] and ca pped for transport back to [facility]. Medications: Fentanyl 250mcg IV, 1% Lido leo <10ccs subcutaneous. Est Blood Loss: <5cc. Complications: No imme diate. Impression: 1. U/S guided right chest tube placement, 1 0Fr. 2. Catheter currently capped for the transport back to [facility]. Can be c onnected to suction drainage once pt back at [facility]. Resident/Fellow: Latonya . Attending: Dr. Leticia [...] Routine documented in this encounter Care Teams Costumer Assistant Relationship Specialty Start Date End Date Sunitha Trotter MD PCP - General 07/07/10 02/18/16 [address] [place] [address] documented as of this encounter
--- OUTSIDE RECORDS SUMMARY | 2022-05-03 09:12 | XMS_ITS | Encounter Summary ---
:1955 Author Organization [facility] [place] [address] Care Team Providers Name Role Phone Sunitha Milligan MD Primary Care Provider Encounter Details Date Type Department Care Team Description 04/25/2014 Orders Only [place] [facility] Sunitha Milligan MD [facility] D jonna [address] [place] [address] [place] [address] [phone] (Wo rk) Social History Tobacco Use Types Packs/Day Years Used Date Never Assessed Sex Assigned at Date Recorded Not on file documented as of this encounter Plan of Treatment Not on filedocumented as of this encounter Visit Diagnoses Not on filedocumented in this encounter Care Teams Accounts Administrator Relationship Specialty Start Date End Date Sunitha Milligan MD PCP - General 07/07/10 02/18/16 [address] [place] [address] documented as of this encounter
--- OUTSIDE RECORDS SUMMARY | 2022-05-03 09:12 | XMS_ITS | Encounter Summary ---
:1955 Author Organization [facility] [place] [address] Care Team Providers Name Role Phone Sunitha Milligan MD Primary Care Provider Encounter Details Date Type Department Care Team Description 08/26/2010 Office Visit Orthopaedics [place] [facility] Raffi Cordova [place] [facility] [place] [address] ORTHOPAEDIC SURGERY [phone] [place], [place] [address] (Wo rk) Social History Tobacco Use Types Packs/Day Years Used Date Never Assessed Sex Assigned at Date Recorded Not on file documented as of this encounter Plan of Treatment Not on filedocumented as of this encounter Visit Diagnoses Not on filedocumented in this encounter Care Teams Rrts Relationship Specialty Start Date End Date Sunitha Milligan MD PCP - General 07/07/10 02/18/16 [address] [place], [place] [address] documented as of this encounter
--- OUTSIDE RECORDS SUMMARY | 2022-05-03 09:15 | XMS_ITS | Encounter Summary ---
:1955 Author Organization [facility] Address [address] [place] [address] Care Team Providers Name Role Phone Alphonso Murphy MD Primary Care Provider [phone] Encounter Details Date Type Department Care Team Description 03/23/2020 Lab Requisition [facility] Outr Resulting Lab, Pathology & Laboratory Provider [facility] [address] [place], [place] [address] Social History Tobacco Use Types Packs/Day Years [...] (03/23/2020 16:45 EDT) COVID-19 rt-PCR NEGATIVE Negative [facility] Result Comment: LABORATORY 2019-novel Coronavirus [...] Address City/State/ZIP Code Phon e Number [facility] [place] [place] COVID-19 TESTING (03/23/2020 16:45 EDT) Pathologist [facility] COVID-19 rt-PCR NEGATIVE Negative [facility] Result Comment: LABORATORY 2019-novel Coronavirus (2019 -nCoV) [...] Administration's Emergency Use Authorization. Performing Lab [facility] LABORATORY SERVICES Specimen Swab Performing Organization Address City/State/ZIP Code Phon e Number [facility] [address] [place] [address] SERVICES [facility] [place], [place] documented in this encounter Visit Diagnoses Not on filedocumented in this encounter Care Teams Germination Worker Relationship Specialty Start Date End Date Alphonso Murphy MD PCP - General 10/22/[address] [place], [place] [address] documented as of this encounter
--- OUTSIDE RECORDS SUMMARY | 2022-05-03 09:15 | XMS_ITS | Encounter Summary ---
:1955 Author Organization [facility] Address [address] [place] [address] Care Team Providers Name Role Phone Alphonso Murphy MD Primary Care Provider [phone] Reason for Visit Reason Onset Date Comments Appointment Related 03/31/2020 Encounter Details Date Type Department Care Team Description 03/31/2020 Telephone [facility] Therapy, Physical Appo intment Related Rehabilitation Therapy - [address] [address] Social History Tobacco Use [...] on filedocumented in this encounter Care Teams Roadability Machine Operator Relationship Specialty Start Date End Date Alphonso Murphy MD PCP - General 10/22/[address] [place] [address] documented as of this encounter
--- OUTSIDE RECORDS SUMMARY | 2022-05-03 09:15 | XMS_ITS | Encounter Summary ---
:1955 Author Organization [facility] Address [address] [place] [address] Care Team Providers Name Role Phone Alphonso Murphy MD Primary Care Provider [phone] Encounter Details Date Type Department Care Team Description 03/26/2022 Lab Requisition [facility] Outr Resulting Lab, Pathology & Laboratory Provider [facility] [address] [place], [place] [address] Social History Tobacco Use Types Packs/Day Years Used Date Never Assessed Sex Assigned at Date Recorded Not on file documented as of this encounter Plan of Treatment Not on filedocumented as of this encounter Procedures Procedure Name Priority Date/Time Associated Diagnosis Comme nts COVID-19 TEST [facility] Today 03/25/2022 13:55 LAB PCR EDT COVID-19 TESTING Routine 03/25/2022 13:55 Results for this EDT procedure are i n the results section. documented in this encounter Results COVID-19 TEST [facility] LAB PCR (03/25/2022 13:55 EDT) Specimen Swab Performing Organization Address City/State/ZIP Code Phon e Number [facility] [address] [place] [address] SERVICES COVID-19 TESTING (03/25/2022 13:55 EDT) COVID-19 rt-PCR Negative Negative [facility] Result Comment: [facility] This test has not been FDA c leared or approved. This test has been authorized by FDA under an EUA for use by authorized laboratories. This test has been authorized only for detection of nucleic acid fro SERVICES m 2018-nCoV, not for any oth er viruses or [...] performed using the adri SARS-CoV-2 assay ([employer] on the Adri 6800 System Performing Lab Adri 6800 [facility] Lab [facility] SERVICES Specimen Swab Performing Organization Address City/State/ZIP Code Phon e Number [facility] [address] [place] [address] SERVICES documented in this encounter Visit Diagnoses Not on filedocumented in this encounter Care Teams Professor Of Theology Relationship Specialty Start Date End Date Alphonso Murphy MD PCP - General 10/22/19 [address] [place], [place] [address] documented as of this encounter
--- OUTSIDE RECORDS SUMMARY | 2022-05-03 09:15 | XMS_ITS | Clinical Summary ---
:1955 Author Organization [facility] Address [address] [place] [address] Care Team Providers Name Role Phone Alphonso Murphy MD Primary Care Provider [phone] Medications Medication Sig Dispensed Refills Start [...] non ACO status via Medicaid web trace: [id number] No additional problems on file Encounters Date Type Specialty Care Team Description 03/26/2022 Lab Requisition Clinical Laboratory Outr Resulting Lab , Provider from Last 3 Months Surgical History Surgery Date Site/Laterality Comments TOTAL KNEE ARTHROPLASTY 08/15/2004 - 08/14/2005 Left re vised 2 times FASCIOTOMY Medical History Medical History Date Comments COPD (chronic obstructive pulmonary disease) ([facility]) ([facility]) Asthma Femur fracture, left ([facility]) ([facility]) 2005 Hyperglycemia DAVID treated with BiPAP Allergic conjunctivitis Sprain of scapholunate ligament 03/21/2019 Pleural effusion 05/03/2014 Chronic respiratory failure with hypoxia and hypercapnia ([facility]) ([facility]) Depression Varicose vein of leg Low back pain with sciatica 05/03/2014 Sensorineural hearing loss, bilateral Morbid obesity ([facility]) ([facility]) Multinodular goiter Chronic headaches Urinary incontinence [...] from Last 3 Months Results COVID-19 TEST [facility] PCR (03/25/2022 13:55 EDT) Specimen Swab Performing Organization Address [facility] Phon e Number [facility] [address] [place] [address] SERVICES COVID-19 TESTING (03/25/2022 13:55 EDT) COVID-19 rt-PCR Negative Negative [facility] Result Comment: [facility] This [...] performed using the adri SARS-CoV-2 assay ([employer] on the Adri 6800 System Performing Lab Adri 6800 [facility] Lab [facility] SERVICES Specimen Swab Performing Organization Address [facility]/ZIP Code Phon e Number [facility] [address] [place] [address] SERVICES from Last 3 Months Insurance Payer Benefit Plan / Subscriber ID Effective Phone Address T ype Group Dates [facility] [id number] 2019-Pres [address] [facility] [place] [phone] Advantage [place] MEDIC[place] [address] [place] [id number] 2012-Pres [address] Medicaid [place] ent [facility] [id number] Radha Masterson A Personal/Family Self 1955 [address]Home) [place] [address] Radha Masterson A Personal/Family Self 1955 [address]Home) [place] [address] Radha Masterson A Personal/Family Self 1955 [address]Home) [place] [address] Merari Mastersonis A Personal/Family Self 1955 [address] (Home) [place] [address] Radha Masterson A Personal/Family Self 1955 [address]Home) [place] [address] Radha Masterson A Personal/Family Self 1955 [address] (Home) [place] [address] Radha Masterson A Personal/Family Self 1955 [address] (Home) [place] [address] Care Teams Corporate Trust Officer Relationship Specialty Start Date End Date Alphonso Murphy MD PCP - General 10/22/19 [address] [place] [address]
--- OUTSIDE RECORDS SUMMARY | 2022-05-03 09:15 | XMS_ITS | Encounter Summary ---
:[address] [facility] Address [address] [place] [address] Care Team Providers Name Role Phone Alphonso Murphy MD Primary Care Provider [phone] Reason for Visit Reason Onset Date Comments Appointment Related 01/22/2020 Encounter Details Date Type Department Care Team Description 01/22/2020 Telephone [facility] Therapy, Physical Appo intment Related Rehabilitation Therapy - [address] [address] Social History Tobacco Use Types [...] in two business days time here at [facility]. She confirmed her availability for this date. Juli Roger MA 01/22/2020 15:01 documented in this encounter Plan of Treatment Not on filedocumented as of this encounter Visit Diagnoses Not on filedocumented in this encounter Care Teams Talent Solutions Manager Relationship Specialty Start Date End Date Alphonso Murphy MD PCP - General 10/22/[address] [place] [address] documented as of this encounter
--- OUTSIDE RECORDS SUMMARY | 2022-05-03 09:15 | XMS_ITS | Encounter Summary ---
:[address] [facility] Address [address] [place] [address] Care Team Providers Name Role Phone Alphonso Murphy MD Primary Care Provider [phone] Reason for Visit Reason Onset Date Comments DME 02/01/2020 Encounter Details Date Type Department Care Team Description 02/01/2020 Telephone [facility] Vincent Oreilly, PT DME Rehabilitation Therapy - [address] [address] [address] [facility] [place] [address] [phone] Social History Tobacco Use Types Packs/Day Years [...] on filedocumented in this encounter Care Teams Wealth Management Consultant Relationship Specialty Start Date End Date Alphonso Murphy MD PCP - General 10/22/[address] [place] [address] documented as of this encounter
--- OUTSIDE RECORDS SUMMARY | 2022-05-03 09:15 | XMS_ITS | Encounter Summary ---
:1955 Author Organization [facility] Address [address] [place] [address] Care Team Providers Name Role Phone Alphonso Murphy MD Primary Care Provider [phone] Encounter Details Date Type Department Care Team Description 10/31/2019 Plan of Care Documentation Social History Tobacco Use Types Packs/Day Years Used Date Never Assessed Sex Assigned at Date Recorded Not on file documented as of this encounter Progress Notes Anca Oreilly, PT - 10/31/2019 1520 EDT Outpatient Rehab Plan of Care Assessment REHABILITATION THERAPIES [facility] REHABILITATION THERAPY - [address] [address] Physical Therapy Initial Evaluation Note Wheelchair Clinic [...] [place] [facility]. However, she has a very steep incline to get up to her home from where the [employer] van drops her off. Pain: Get discomfort [...] Current wheelchair: ?? Brand/style of primary wheelchair: ShelfX HD heavy duty group 2 power chair [...] hypercapnia ([facility]), COPD (chronic obstructive pulmonary disease) ([facility]), Depression, Femur fracture, left ([facility]) (2005), Hyperglycemia, Low back pain with sciatica (05/03/2014), Morbid obesity ([facility]), Multinodular goiter, DAVID treated with BiPAP, Pleural [...] home. In consultation with FABIANO Cano from [employer], a wheelchair prescription was generated and Medicaid Addendum was reviewed with Radha and signed. Patient/family education: Topic: Explained insurance conundrum she is in: Existing chair breaks down because it is not rated for hill climbing she requires to get to her home from the [facility] bus. We will try to petition [place] Medicaid for this. Learner: patient Method: verbal and handout Barriers to Learning: none noted Outcome: verbalized understanding Team communication: FABIANO Cano from [employer] was present and participatedin this entire visit. [...] to be supported where it naturally falls. Inspector Rough Castings Goals: 8 weeks Radha will have a [...] Referring Provider: Brandan Fabian MD Funding at [place] [facility] Fax: [phone] WHEELCHAIR PRESCRIPTION 10/31/2019 Radha Masterson 1955 [address] [facility] [address] (home) Insurance Policy Number [place] Medicaid [id number] Medical/Surgical History: Past Medical History: Diagnosis Date ??? Allergic conjunctivitis ??? Asthma ??? Chronic headaches ??? Chronic respiratory failure with hypoxia and hypercapnia ([facility]) ??? COPD (chronic obstructive pulmonary disease) ([facility]) ??? Depression ??? Femur fracture, left ([facility]) 2005 ??? Hyperglycemia ??? Low back pain with sciatica 05/03/2014 ??? Morbid obesity ([facility]) ??? Multinodular goiter ??? DAVID [...] Sitting surface to elbow (90 degrees)-10 Color [employer] Wheelchair Description Justification Farm Management Supervisor, style and model Group 3 Very Heavy [...] brackets Seat belt Group 24 batteries and assembler fluorescent lights Needs lowered joystick so she does not [...] on filedocumented in this encounter Care Teams Crusher Machine Operator Relationship Specialty Start Date End Date Alphonso Murphy MD PCP - General 10/22/[address] [place] [address] documented as of this encounter
--- OUTSIDE RECORDS SUMMARY | 2022-05-03 09:15 | XMS_ITS | Encounter Summary ---
:1955 Author Organization [facility] Address [address] [place] [address] Care Team Providers Name Role Phone Alphonso Murphy MD Primary Care Provider [phone] Encounter Details Date Type Department Care Team Description 07/08/2020 Lab Requisition [facility] uJnior Shaikh for other Pathology & TIMOTHY Nugent general examination Laboratory Medicine [address] [place], [place] [address] [facility] [address] [place] [address] Social History Tobacco Use Types Packs/Day Years Used Date Never Assessed Sex Assigned at Date Recorded Not on file documented as of this encounter Plan of Treatment Not on filedocumented as of this encounter Procedures Procedure Name Priority Date/Time Associated Diagnosis Comme nts COVID-19 TEST [facility] Today 07/08/2020 13:56 Encounter for oth er LAB PCR EST general examination COVID-19 TESTING Today 07/08/2020 13:56 Encounter for other Results for this EST general examination procedur e are in the results section. documented in this encounter Results COVID-19 TEST [facility] LAB PCR (07/08/2020 13:56 EST) Specimen Swab - Nasal (qualifier value) Performing Organization Address City/State/ZIP Code Phon e Number [facility] [address] [place] [address] SERVICES COVID-19 TESTING (07/08/2020 13:56 EST) COVID-19 rt-PCR Negative Negative [facility] Result Comment: [facility] This [...] and epidemiological informatio n. Performed on the Roverher Fusion instrument Performing Lab [facility] SERVICES Specimen Swab - Nasal (qualifier value) Performing Organization Address City/State/ZIP Code Phon e Number [facility] [address] [place] [address] SERVICES documented in this encounter Visit Diagnoses Diagnosis Encounter for other general examination documented in this encounter Care Teams Push Bench Operator Helper Relationship Specialty Start Date End Date Alphonso Murphy MD PCP - General 10/22/[address] [place] [id number] documented as of this encounter
--- OUTSIDE RECORDS SUMMARY | 2022-05-03 09:15 | XMS_ITS | Encounter Summary ---
:1955 Author Organization [facility] Address [address] [place] [address] Care Team Providers Name Role Phone Alphonso Murphy MD Primary Care Provider [phone] Reason for Visit Reason Onset Date Comments Appointment Related 10/23/2019 Encounter Details Date Type Department Care Team Description 10/23/2019 Telephone [facility] Therapy, Appointme nt Related Rehabilitation Therapy - Outpatient, [address] [address] Social History Tobacco Use Types Packs/Day Years Used Date Never Assessed Sex Assigned at Date Recorded Not on file documented as of this encounter Miscellaneous Notes Telephone Encounter - Deonte Guy MA - 10/23/2019 1138 EDT Called [phone] to reach patient regarding her appointment. I left a message on the [employer] machine explaining that the 10/23 appointment has been rescheduled to 10/31/19 @ 0900. DEONTE GUY MA 10/23/2019 11:43 documented in this encounter Plan of Treatment Not on filedocumented as of this encounter Visit Diagnoses Not on filedocumented in this encounter Care Teams Patient Accounts Specialist Relationship Specialty Start Date End Date Alphonso Murphy MD PCP - General 10/22/19 [address] [place], [place] [address] documented as of this encounter
--- OUTSIDE RECORDS SUMMARY | 2022-05-03 09:15 | XMS_ITS | Encounter Summary ---
:1955 Author Organization [facility] Address [address] [place] [address] Care Team Providers Name Role Phone Alphonso Murphy MD Primary Care Provider [phone] Reason for Visit Reason Onset Date Comments Appointment Related 10/29/2019 Encounter Details Date Type Department Care Team Description 10/29/2019 Telephone [facility] Anca Oreilly, [place] ointment Related Rehabilitation Therapy - PT [address] [address] [phone] Social History Tobacco Use Types Packs/Day Years [...] on filedocumented in this encounter Care Teams Cab Worker Relationship Specialty Start Date End Date Alphonso Murphy MD PCP - General 10/22/[address] [place], [place] [address] [address] documented as of this encounter
--- OUTSIDE RECORDS SUMMARY | 2022-05-03 09:16 | XMS_ITS | Encounter Summary ---
:1955 Author Organization [facility] Address [address] [place] [address] Care Team Providers Name Role Phone Brandan Fabian MD Primary Care Provider Unavailable Reason for Visit Reason Onset Date Comments Appointment Related 02/20/2016 Encounter Details Date Type Department Care Team Description 02/20/2016 Telephone [facility] Medical Center Therapy, Appointme nt Related Rehabilitation Therapy - Outpatient, [address] [address] Social History Tobacco Use Types [...] on filedocumented in this encounter Care Teams License Clerk Relationship Specialty Start Date End Date Brandan Fabian MD PCP - General 11/19/15 10/21/19 documented as of this encounter
--- OUTSIDE RECORDS SUMMARY | 2022-05-03 09:16 | XMS_ITS | Encounter Summary ---
:1955 Author Organization [facility] Address [address] [place] [address] Care Team Providers Name Role Phone Unavailable Primary Care Provider Unavailable Encounter Details Date Type Department Care Team Description 03/25/2014 Results Only [facility] Raffi Nava , Laboratory Services - [address] RANJITH AGUILERA [address] [place] [address] [place] [address] [phone] Social History Tobacco Use Types Packs/Day Years Used Date Never Assessed Sex Assigned at Date Recorded Not on file documented as of this encounter Plan of Treatment Not on filedocumented as of this encounter Procedures Procedure Name Priority Date/Time Associated Diagnosis Comme nts CYTOPATHOLOGY Routine 03/25/2014 0:00 EDT Results for this procedure are i n the results section . documented in this encounter Results CYTOPATHOLOGY (03/25/2014 0:00 EDT) Pathology Report: CYTOPATHOLOGY REPORT [facility] Reports generated via electronic interface contain amarilys ginal data; however they are lacking the format of the original re port. Caution should be taken when reading/interpreting unfo rmatted reports. Name: ? 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 Accession #: ? [id number] : ? 1955 (Age: 58) ??F ?Collect Date: ? 03/15 Location: ? [facility] ? Receive Date : ? 03/25/2014 Provider: ? ERINNZHANGELISABETH NAVA DO Copy to: ?HARIKA ACOSTA MD ? CYTOLOGIC DIAGNOSIS: PLEURAL FLUID, RIGHT, CYTOLOGIC EVALUATION: - ??No malignant cells identified. - ??Rare mesothelial cells and inflammatory cells note d. Document reviewed and electronically signed by: ? PARVEEN HOPKINS MD [facility] Report Date: ??03/25/2014 17:49 By the signature above, the attending physician certif ies that he/she has personally conducted a gross and/or microscopic examin ation of the described specimens and rendered or confirmed the above diagnosi s. Specimen Type: ? Pleural Fluid, Right Clinical History: ? Not listed. ? Gross Description: ? One vial of Cytolyt was rece ived and processed by selective cellular enhancement technique. ? End of Report Specimen Performing Organization Address City/State/ZIP Code Phon e Number [facility] [address] [place] [address] SERVICES [facility] [address] [place] [address] documented in this encounter Visit Diagnoses Not on filedocumented in this encounter
--- OUTSIDE RECORDS SUMMARY | 2022-05-03 09:16 | XMS_ITS | Encounter Summary ---
:1955 Author Organization [facility] Address [address] [place] [address] Care Team Providers Name Role Phone Brandan Fabian MD Primary Care Provider Unavailable Reason for Visit Reason Onset Date Comments Appointment Related 02/13/2016 Encounter Details Date Type Department Care Team Description 02/13/2016 Telephone [facility] Center Therapy, Appointme nt Related Rehabilitation Therapy - Outpatient, [address] [address] Social History Tobacco Use Types [...] on filedocumented in this encounter Care Teams Waiter/Waitress Head Relationship Specialty Start Date End Date Brandan Fabian MD PCP - General 11/19/15 10/21/19 documented as of this encounter
--- OUTSIDE RECORDS SUMMARY | 2022-05-03 09:16 | XMS_ITS | Encounter Summary ---
:1955 Author Organization [facility] Address [address] [place] [address] Care Team Providers Name Role Phone Brandan Fabian MD Primary Care Provider Unavailable Reason for Visit Reason Onset Date Comments Appointment Related 08/06/2019 Encounter Details Date Type Department Care Team Description 08/06/2019 Telephone [facility] Medical Center Therapy, Appointme nt Related Rehabilitation Therapy - Outpatient, [address] [id number] Social History Tobacco Use Types Packs/Day Years [...] on filedocumented in this encounter Care Teams Forming And Assembling Supervisor Relationship Specialty Start Date End Date Brandan Fabian MD PCP - General 11/19/15 10/21/19 documented as of this encounter
--- OUTSIDE RECORDS SUMMARY | 2022-05-03 09:16 | XMS_ITS | Encounter Summary ---
:1955 Author Organization [facility] Address [address] [place] [address] Care Team Providers Name Role Phone Unavailable Primary Care Provider Unavailable Encounter Details Date Type Department Care Team Description 09/23/1999 Results Only [facility] - Sunitha Foss CNM [facility] [address] [place] [address] Social History Tobacco Use Types Packs/Day Years [...] 04/2000 Location: ?Receive Date: ? 09/23/1999 Provider: ?SUNTIHA RICH CNM Copy to: ?SUNITHA RICH CNM ? Specimen/Source: ?Food Production Supervisor ThinPrep Last Menstrual Period: ? GYNECOLOGIC ??CYTOPATHOLOG Y ??REPORT Name: YOUNG,CYN A ? [facility] : 1955 ?? 44Y F ?Client ID: [id number] SS#: ? Clinician: RICH KEREN, SUNITHA ?? Location: [facility] ??Copy to: ?? Specimen: ?Food Production Supervisor ThinPrep ? Source: Cervix/Endocervix ?Collected: 09/21/99 ? [...] CT(ASCP) ? Report Date : ?? 09/28/1999 [facility] Archived Tests - Final Diagnosis Text Field: Clinical History : ? Document reviewed and electronically signed by: ? Conversion ? Report Date: ??09/28/1999 00:00 End of Report Specimen Performing Organization Address City/State/ZIP Code Phon e Number [facility] [address] [place] [address] SERVICES [facility] [address] [place] [address] documented in this encounter Visit Diagnoses Not on filedocumented in this encounter
--- OUTSIDE RECORDS SUMMARY | 2022-05-03 09:16 | XMS_ITS | Encounter Summary ---
:1955 Author Organization [facility] Address [address] [place] [address] Care Team Providers Name Role Phone Unavailable Primary Care Provider Unavailable Encounter Details Date Type Department Care Team Description 04/02/2011 Results Only [facility] Nataly Trotter MD Laboratory Services - [address] [place] [address] [address] [facility] [place] [address] [phone] Social History Tobacco Use Types Packs/Day Years [...] JOHAN, CYN A ? Accession #: ? [id number] ? : ? 1955 (Age: 55) ??F [...] Organization Address City/State/ZIP Code Phon e Number [facility] [address] [place] [address] SERVICES [facility] [address] [address] documented in this encounter Visit Diagnoses Not on filedocumented in this encounter
--- OUTSIDE RECORDS SUMMARY | 2022-05-03 09:16 | XMS_ITS | Encounter Summary ---
:1955 Author Organization [facility] Address [address] [place] [address] Care Team Providers Name Role Phone Unavailable Primary Care Provider Unavailable Reason for Visit Reason Onset Date Comments Appointment Related 11/24/2010 Encounter Details Date Type Department Care Team Description 11/24/2010 Telephone [facility] Anca Oreilly, Lawrence ointment Related Rehabilitation Therapy - PT [address] [id number] [phone] Social History Tobacco Use Types Packs/Day Years Used Date Never Assessed Sex Assigned at Date Recorded Not on file documented as of this encounter Miscellaneous Notes Telephone Encounter - Jayshree Anderson - 11/26/2010 1531 EDT I called Radha back and asked if she'd like to schedule a wheelchair evaluation and she said she's decided not to work with [facility] and instead contacted [facility], she now has a power chair and stated this is working well for her and has no P.T needs. I've notified Dontrel at [facility] Stun[facility] of this. elephone Encounter - Jayshree Anderson - 11/24/2010 1509 EDT Left message at home number requesting return call to schedule wheelchair evaluation. documented in this encounter Plan of Treatment Not on filedocumented as of this encounter Visit Diagnoses Not on filedocumented in this encounter
--- OUTSIDE RECORDS SUMMARY | 2022-05-03 09:16 | XMS_ITS | Encounter Summary ---
:1955 Author Organization [facility] Address [address] [place] [address] Care Team Providers Name Role Phone Brandan Fabian MD Primary Care Provider Unavailable Reason for Visit Reason Onset Date Comments Returning Call 03/09/2017 DME 03/09/2017 Encounter Details Date Type Department Care Team Description 03/09/2017 Telephone [facility] Anca Oreilly, Sheryl urning Call; DME Rehabilitation Therapy - PT [address] [address] [phone] Social History Tobacco Use Types Packs/Day Years [...] filedocumented in this encounter Care Teams Medical Examiner Relationship Specialty Start Date End Date Brandan Fabian MD PCP - General 11/19/15 10/21/19 documented as of this encounter
--- OUTSIDE RECORDS SUMMARY | 2022-05-03 09:16 | XMS_ITS | Encounter Summary ---
:1955 Author Organization [facility] Address [address] [place] [address] Care Team Providers Name Role Phone Brandan Fabian MD Primary Care Provider Unavailable Reason for Visit Reason Onset Date Comments Appointment Related 03/29/2016 Encounter Details Date Type Department Care Team Description 03/29/2016 Telephone [facility] Therapy, Appointdc nt Related Rehabilitation Therapy - Outpatient, [address] [address] Social History Tobacco Use Types Packs/Day Years Used Date Never Assessed Sex Assigned at Date Recorded Not on file documented as of this encounter Miscellaneous Notes Telephone Encounter - Eulalia Degroot - 03/29/2016 1550 EDT Phone call from Hari Jackson at [facility]: due to changes in medicare [facility] will be unable to provide mobility equipment to this patient. Hari has called the patient to let her know that we will need to cancel her Wheelchair Clinic appointment tomorrow. documented in this encounter Plan of Treatment Not on filedocumented as of this encounter Visit Diagnoses Not on filedocumented in this encounter Care Teams Data Integrity Specialist Relationship Specialty Start Date End Date Brandan Fabian MD PCP - General 11/19/15 10/21/19 documented as of this encounter
--- OUTSIDE RECORDS SUMMARY | 2022-05-03 09:16 | XMS_ITS | Encounter Summary ---
:1955 Author Organization [facility] Address [address] [place] [address] Care Team Providers Name Role Phone Brandan Fabian MD Primary Care Provider Unavailable Encounter Details Date Type Department Care Team Description 06/23/2017 Documentation Visit [facility] Audrey Paez, Rehabilitation Therapy - PT [address] [place] [phone] Social History Tobacco Use Types Packs/Day Years Used Date Never Assessed Sex Assigned at Date Recorded Not on file documented as of this encounter Progress Notes Audrey Paez, PT - 06/23/2017 2216 EST REHABILITATION THERAPIES [facility] - [address] [address] Physical Therapy Discontinue/Discharge Note Date of Service: [...] ability to access her home and community. [place] that the patient will benefit from the [...] plate and position of the front casters. [place] that she may require the use of standard swing away foot plates to alleviate this problem or a front wheel drive wheelchair. It is appropriate to discontinue physical therapy at this time as she did not meet insurance requirements for new wheelchair. ?? Permastone Mechanic Goals: 12 weeks (ALL GOALS DISCONTINUED) ?? [...] on filedocumented in this encounter Care Teams Real Estate Agent Relationship Specialty Start Date End Date Brandan Fabian MD PCP - General 11/19/15 10/21/19 documented as of this encounter
--- OUTSIDE RECORDS SUMMARY | 2022-05-03 09:16 | XMS_ITS | Encounter Summary ---
:1955 Author Organization [facility] Address [address] [place] [address] Care Team Providers Name Role Phone Unknown, Provider Primary Care Provider Encounter Details Date Type Department Care Team Description 04/04/2014 Results Only [facility] Nataly Trotter MD Laboratory Services - [address] [place] [address] [address] [facility] [place], [place] [id number] [phone] Social History Tobacco Use Types Packs/Day Years [...] ? 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 Accession #: ? [id number] ? : ? 1955 (Age: 58) ??F [...] reviewed and electronically signed by: ? DELFINA Mgcarry(ASCP) ? Report ??Date: 04/12/2014 14:20 HPV with Pap Test ? Date Ordered: ? 04/12/2014 ? Status: ?? Signed Out ?Date Complete: ? 04/17/2014 ? By: ??S ystem Interface ? Date Reported: ? 04/17/2014 ? Interpretation RESULT: Negative for HPV. No E6 or E7 mRNA is detected from HPV types 16,18,31,3 3,35, 39,45,51,52,56,58,59,66, and 68 by straddle bug operator media seth amplification. Comments Document reviewed and electronically signed by: ? System Interface ? Report date: 04/17/2014 By the signature above, the attending physician certif ies that he/she has personally conducted a gross and/or microscopic examin ation of the described specimens and rendered or confirmed the above diagnosi s. End of Report Specimen Performing Organization Address City/State/ZIP Code Phon e Number [facility] [address] [place] [address] [facility] [address] [place] [address] documented in this encounter Visit Diagnoses Not on filedocumented in this encounter Care Teams Linen Folder Relationship Specialty Start Date End Date Unknown, Provider, PCP - General 03/29/14 11/16/15 documented as of this encounter
--- OUTSIDE RECORDS SUMMARY | 2022-05-03 09:16 | XMS_ITS | Encounter Summary ---
:1955 Author Organization [facility] Address [address] [place] [address] Care Team Providers Name Role Phone Unknown, Provider Primary Care Provider Sunitha Milligan MD Primary Care Provider Reason for Visit Reason Onset Date Comments Appointment Related 11/14/2015 Encounter Details Date Type Department Care Team Description 11/14/2015 Telephone [facility] Therapy, Appointma nt Related Rehabilitation Therapy - Outpatient, [address] [address] Social History Tobacco Use Types Packs/Day Years Used Date Never Assessed Sex Assigned at Date Recorded Not on file documented as of this encounter Miscellaneous Notes Telephone Encounter - Eulalia Degroot - 11/14/2015 1012 EDT [facility] - [address] [address] Person providing information? Radha Arrington: self Phone number: [phone] 1. Who recommended that you be seen [...] Weight? 410lb 20. Name of Medical Vendor? [employer]. Are you receiving Physical Therapy? Occupational [...] send an additional questionnaire (if needed)? - [facility] - [address] [address] Telephone Intake Information for Scheduling NEW Patients [...] on filedocumented in this encounter Care Teams Leather Repairer Relationship Specialty Start Date End Date Unknown, Steffi, PCP - General 03/29/14 11/16/15 Sunitha Milligan MD PCP - General 11/17/15 11/18/[address] [place] [address] [place] [address] documented as of this encounter
== END ==
PROVIDERS: PCP Family Medicine; Visit Provider Physician Assistant
DX: M79.605 Pain in left leg (principal)
CPT/HCPCS: 93971

== ENCOUNTER 2022-05-03 11:01 | Emergency (ER) | payer MEDICARE, MEDICAID, SELFPAY ==
[2022-05-03 11:21] VITALS: BP 135/78; PULSE 85; RESP 18; TEMP 36.8; O2SAT 94
--- NOTE | 2022-05-03 12:18 | W.ED.GENAD ---
Discharge Plan Disposition Patient Disposition: HOME Condition: Stable Discharge Details Clinical Impression: Leg pain, left, Cellulitis of left leg Primary Care Provider: Alphonso Murphy ED Provider: Rosa Arellano Home Meds and New Rx's Prescriptions: Continued triamcinolone acetonide 0.1 % cream 1 applic Topical BID PRN (Reason: rash on legs) Qty: 30 2RF prednisone 20 mg tablet 10 - 40 mg PO DAILY Qty: 12 0RF Rx Instructions: 2 /day for 3 days, then 1 /day for 4 days, then 1/2 day for 4 days furosemide 40 mg tablet 80 mg PO DAILY Qty: 90 3RF Rx Instructions: per nurse midwife/clinical instructor at [facility] metformin 1,000 mg tablet 1,000 mg PO BID Qty: 180 3RF fluticasone propionate [Flonase Allergy Relief] 50 mcg/actuation spray,suspension 1 spray NS DAILY Qty: 1 8RF clotrimazole 1 % cream 1 applic topical TID Qty: 30 2RF nystatin 100,000 unit/gram powder 1 applic TP BID PRN (Reason: intertrigo) Qty: 30 5RF ketotifen fumarate [Zaditor] 0.025 % (0.035 %) drops 1 drp OP BID PRN (Reason: allergy symptoms) Qty: 5 2RF Rx Instructions: administer at least 8 hours apart cephalexin 500 mg tablet 500 mg PO QID Qty: 28 0RF tramadol 50 mg tablet 50 mg PO Q8H PRN (Reason: pain) Qty: 10 0RF ipratropium-albuterol 0.5 mg-3 mg(2.5 mg base)/3 mL solution for nebulization 3 ml IH QID MDD 4 nebs Qty: 180 3RF cefuroxime axetil 500 mg tablet 500 mg PO BID Qty: 10 0RF ascorbic acid (vitamin C) 1,000 MG tablet 1,000 mg PO DAILY (DME) Aerochamber Mini 1 EACH spacer 1 ea Inhalation PRN Qty: 1 Rx Instructions: DIRECTED WITH INHALER BiPAP Inhalation Gas 5 l IN DIRECTED Rx Instructions: sleep apnea ([facility] sleep lab 2013) uses with oxygen oxygen Inhalation 2 l Intranasal DIRECTED Label Comments: Continuous and uses with bipap Rx Instructions: 2L/NC continuous montelukast [Singulair] 10 mg tablet 10 mg PO DAILY Qty: 30 11RF albuterol sulfate [ProAir HFA] 90 mcg/actuation HFA aerosol inhaler 1 - 2 puff Inhalation Q6H PRN Qty: 1 11RF citalopram [Celexa] 20 mg tablet 20 mg PO DAILY Qty: 90 3RF ketoconazole 2 % cream 1 applic topical BID PRN (Reason: rash) Qty: 60 1RF betamethasone, augmented 0.05 % lotion 1 applic topical BID PRN (Reason: allergic reaction) Qty: 60 2RF tizanidine 2 mg tablet 2 mg PO Q8H PRN (Reason: muscle spasticity) Qty: 20 0RF alclometasone 0.05 % cream 1 applic topical BID PRN (Reason: itching) Qty: 45 1RF levothyroxine [Levo-T] 175 mcg tablet 175 mcg PO DAILY Qty: 90 3RF aspirin 325 MG tablet 325 mg PO DAILY Qty: 0 0RF prednisone 50 mg tablet 50 mg PO DAILY Qty: 4 0RF doxycycline hyclate 100 mg capsule 100 mg PO BID Qty: 14 0RF prednisone 20 mg tablet 40 mg PO DAILY Qty: 10 0RF amoxicillin-pot clavulanate 875-125 mg tablet 1 tab PO BID Qty: 14 0RF sulfamethoxazole-trimethoprim [Bactrim DS] 800-160 mg tablet 1 tab PO BID Qty: 20 0RF Discharge Instructions Instructions: Cellulitis (ED) Additional Instructions: Please continue with previous discharge instructions. Please go to the pharmacy and warehouse picker your antibiotics today. You may continue with Tylenol as advised by your primary care for any continued discomfort. Please keep your coming appointment on Tuesday. If you develop increased pain, spreading of the redness/warmth or other new/worsening symptoms please seek care urgently once again. Referrals: Alphonso Murphy MD [Primary Care Provider] - Discharge Data Discharge Date/Time-TO BE ENTERED AT DEPARTURE: 05/03/22 12:43 Medical Decision Making Patient is a 67-year-old female with past medical history of COPD, on chronic oxygen, DAVID, morbid obesity, pulmonary embolism, left leg cellulitis, presenting today for results of her DVT study. Patient was seen here 2 days ago at which time Bactrim was added to the Keflex she had been on for the left lower extremity cellulitis. Patient reports that she is not been able to pick this up as of yet because the pharmacy was closed her unable to fill it as of yet. She will go pick this up today. She reports that she has had low-grade fevers in the 99 ?F range. At the time she was here, patient underwent laboratory evaluation and had a nonspecific leukocytosis of 11.38. GFR 81. She denies any increased pain or spreading of the erythema of the left lower extremity. She also appears to have chronic edema in the lower extremity and has been taking her diuretics. FINDINGS: Exam is limited by patient body habitus.? The mid through distal femoral vein as well as popliteal vein were not visualized.? The common femoral, femoral and profundus femoral veins demonstrate normal compressibility, augmentation, and color Doppler. The posterior tibial veins are patent.? No saphenous vein thrombosis or other superficial venous thrombosis is seen.? No hematoma or Sanders's cyst is seen. IMPRESSION: Limited exam.? No evidence of DVT.? I discussed these findings with the patient. Reevaluated the extremity and continues to note some light erythema to the medial left upper thigh. No large hematoma or significant erythema. Patient appears nontoxic, is currently afebrile we will give her a dose of Bactrim here. She is going to warehouse picker the rest now. I advised that she continue with her previous discharge recommendations. Return precautions were discussed. She has a follow-up appointment in 2 days and encouraged that she keep this appointment. Return precautions discussed. All her questions and concerns were addressed and she is agreement this plan. HPI General Date/Time Provider Initiated Documentation: 05/03/22 11:18. Limitations to Documentation: no limitations. Information obtained by: patient, RN notes reviewed and old records reviewed. HPI Narrative: Patient 67 year old female presenting today for results of her US of the LLE. Was seen here 2 days ago with LLE discomfort. Was diagnosed with cellulitis, started on abx. The concern for DVT was lower but US ordered out of abundance of caution. Patient denies SOB, CP. states low grade fevers in the 99*F range. States that LLE is not any worse than when she was here recently. Has f/u with PCP Tuesday. Related Data Home Medications Medication Instructions Recorded Confirmed ascorbic acid (vitamin C) 1,000 mg 1,000 mg PO DAILY 11/25/12 04/28/22 tablet inhalational spacing device ##1 12/21/13 04/28/22 (Aerochamber Mini) Bipap 5 l IN DIRECTED 07/23/14 04/28/22 Oxygen 2 l intranasal DIRECTED 12/24/14 04/28/22 aspirin 325 mg tablet 325 mg PO DAILY #0 tab-caps 06/22/15 04/28/22 triamcinolone acetonide 0.1 % 1 applic topical BID PRN rash on 12/22/18 05/01/22 topical cream legs #30 grams clotrimazole 1 % topical cream 1 applic topical TID #30 grams 02/20/19 04/28/22 nystatin 100,000 unit/gram topical 1 applic topical BID PRN 02/20/19 04/28/22 powder intertrigo #30 grams ketotifen fumarate 0.025 % (0.035 1 drp ophthalmic (eye) BID PRN 04/27/19 04/28/22 %) eye drops (Zaditor) allergy symptoms #5 mL montelukast 10 mg tablet 10 mg PO DAILY #30 tabs 01/29/20 04/28/22 (Singulair) albuterol sulfate 90 mcg/actuation 1 - 2 puff inhalation Q6H PRN ##1 06/06/20 04/28/22 aerosol inhaler (ProAir HFA) citalopram 20 mg tablet (Celexa) 20 mg PO DAILY #90 tab-caps 06/06/20 04/28/22 prednisone 50 mg tablet 50 mg PO DAILY #4 tabs 07/08/20 04/28/22 prednisone 20 mg tablet 10 - 40 mg PO DAILY #12 tabs 07/15/20 04/28/22 fluticasone propionate 50 1 spray NS DAILY ##1 01/14/21 04/28/22 mcg/actuation nasal spray,suspension (Flonase Allergy Relief) furosemide 40 mg tablet 80 mg PO DAILY #90 tabs 01/14/21 04/28/22 metformin 1,000 mg tablet 1,000 mg PO BID #180 tabs 01/14/21 04/28/22 ketoconazole 2 % topical cream 1 applic topical BID PRN rash #60 01/30/21 04/28/22 grams betamethasone, augmented 0.05 % 1 applic topical BID PRN allergic 06/20/21 04/28/22 lotion reaction #60 mL tizanidine 2 mg tablet 2 mg PO Q8H PRN muscle spasticity 10/07/21 05/01/22 #20 tabs alclometasone 0.05 % topical cream 1 applic topical BID PRN itching 10/16/21 04/28/22 #45 grams doxycycline hyclate 100 mg capsule 100 mg PO BID #14 caps 11/17/21 04/28/22 prednisone 20 mg tablet 40 mg PO DAILY #10 tabs 11/17/21 04/28/22 amoxicillin 875 mg-potassium 1 tab PO BID #14 tabs 03/30/22 04/28/22 clavulanate 125 mg tablet cefuroxime axetil 500 mg tablet 500 mg PO BID copd exacerb #10 tabs 04/07/22 04/28/22 ipratropium 0.5 mg-albuterol 3 mg 3 ml inhalation QID COPD 04/07/22 04/28/22 (2.5 mg base)/3 mL nebulization exacerbation/wheezing #180 mL soln levothyroxine 175 mcg tablet 175 mcg PO DAILY #90 tabs 04/13/22 05/01/22 (Levo-T) cephalexin 500 mg tablet 500 mg PO QID #28 tabs 04/28/22 04/28/22 tramadol 50 mg tablet 50 mg PO Q8H PRN pain #10 tabs 04/28/22 05/01/22 sulfamethoxazole 800 1 tab PO BID #20 tabs 05/01/22 mg-trimethoprim 160 mg tablet (Bactrim DS) Previous Rx's Medication Instructions Recorded aspirin 325 mg tablet 325 mg PO DAILY #0 tab-caps 06/22/15 triamcinolone acetonide 0.1 % 1 applic topical BID PRN rash on 12/22/18 topical cream legs #30 grams clotrimazole 1 % topical cream 1 applic topical TID #30 grams 02/20/19 nystatin 100,000 unit/gram topical 1 applic topical BID PRN 02/20/19 powder intertrigo #30 grams ketotifen fumarate 0.025 % (0.035 1 drp ophthalmic (eye) BID PRN 04/27/19 %) eye drops (Zaditor) allergy symptoms #5 mL montelukast 10 mg tablet 10 mg PO DAILY #30 tabs 01/29/20 (Singulair) albuterol sulfate 90 mcg/actuation 1 - 2 puff inhalation Q6H PRN ##1 06/06/20 aerosol inhaler (ProAir HFA) citalopram 20 mg tablet (Celexa) 20 mg PO DAILY #90 tab-caps 06/06/20 prednisone 50 mg tablet 50 mg PO DAILY #4 tabs 07/08/20 prednisone 20 mg tablet 10 - 40 mg PO DAILY #12 tabs 07/15/20 fluticasone propionate 50 1 spray NS DAILY ##1 01/14/21 mcg/actuation nasal spray,suspension (Flonase Allergy Relief) furosemide 40 mg tablet 80 mg PO DAILY #90 tabs 01/14/21 metformin 1,000 mg tablet 1,000 mg PO BID #180 tabs 01/14/21 ketoconazole 2 % topical cream 1 applic topical BID PRN rash #60 01/30/21 grams betamethasone, augmented 0.05 % 1 applic topical BID PRN allergic 06/20/21 lotion reaction #60 mL tizanidine 2 mg tablet 2 mg PO Q8H PRN muscle spasticity 10/07/21 #20 tabs alclometasone 0.05 % topical cream 1 applic topical BID PRN itching 10/16/21 #45 grams doxycycline hyclate 100 mg capsule 100 mg PO BID #14 caps 11/17/21 prednisone 20 mg tablet 40 mg PO DAILY #10 tabs 11/17/21 amoxicillin 875 mg-potassium 1 tab PO BID #14 tabs 03/30/22 clavulanate 125 mg tablet cefuroxime axetil 500 mg tablet 500 mg PO BID copd exacerb #10 tabs 04/07/22 ipratropium 0.5 mg-albuterol 3 mg 3 ml inhalation QID COPD 04/07/22 (2.5 mg base)/3 mL nebulization exacerbation/wheezing #180 mL soln levothyroxine 175 mcg tablet 175 mcg PO DAILY #90 tabs 04/13/22 (Levo-T) cephalexin 500 mg tablet 500 mg PO QID #28 tabs 04/28/22 tramadol 50 mg tablet 50 mg PO Q8H PRN pain #10 tabs 04/28/22 sulfamethoxazole 800 1 tab PO BID #20 tabs 05/01/22 mg-trimethoprim 160 mg tablet (Bactrim DS) Allergies Allergy/AdvReac Type Severity Reaction Status Date / Time hydrocodone Allergy Severe ITCHING Verified 04/16/22 08:36 morphine Allergy Mild PRURITIS Verified 04/16/22 08:36 oxycodone Allergy Mild ITCHING Verified 04/16/22 08:36 General Stated Complaint: Vascular REUBEN: 4 Review of Systems Constitutional Constitutional: Reports as per HPI Musculoskeletal Musculoskeletal: Reports as per HPI Integumentary/Breasts Skin/Breast: Reports as per HPI Neurologic Neurologic: Reports as per HPI [facility] All Active Problems (Updated 05/03/22 @ 12:35 by INESSA Ngo) Leg pain, left (Acute) Cellulitis of left leg (Acute) Distal radius fracture, right (Acute) Avulsion fracture (Acute) middle finger, proximal phalanx. COPD exacerbation (Acute) Knee pain, left (Acute) Right carpal tunnel syndrome (Acute) Bilateral hand pain (Acute) Thyroid disease (Acute) Viral URI (Acute) Low back pain (Acute) Chest wall pain (Acute) Dysphagia (Acute) Conductive hearing loss, external ear (Acute) Impacted cerumen, left ear (Acute) Ulcer of right lower extremity (Acute) Bronchitis (Acute) Cellulitis of leg, right (Acute) Fever (Acute) Thyroid enlargement (Acute) S/p thyroidectomy 2020 Mixed conductive and sensorineural hearing loss of both ears (Acute) Allergic sinusitis (Acute) Hyperglycemia (Acute) DAVID (obstructive sleep apnea) (Chronic) Community acquired pneumonia (Acute) COPD exacerbation (Acute) Sprain of scapholunate ligament (Acute 03/21/19) Allergic conjunctivitis (Acute) Wrist pain, right (Acute) Chronic obstructive pulmonary disease (Chronic) Chest pain (Acute 07/23/14) History of fasciotomy (Acute) Pleural effusion on right (Acute 05/03/14) Status post total bilateral knee replacement (Acute) Discharge planning issues (Acute) Chronic respiratory failure with hypoxia and hypercapnia (Chronic) Grief at loss of child (Acute) Depression (Chronic) Varicose veins of lower extremity (Chronic) Low back pain with sciatica (Chronic 05/03/14) CT at [facility] L34 spinal stenosis Advance directive on file (Acute) DVT prophylaxis (Acute) Sensorineural hearing loss, bilateral (Chronic 08/29/13) Morbid obesity (Acute 04/05/13) Knee pain, bilateral (Chronic 07/23/14) s/p bilat TKR (left infected with mult surg and decreased mobility) Goiter, nontoxic, 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 PFTs 09/2012 showed an FEV1 of 60% with improvement to 80% with bronchodilator, thought to be severe restrictive disease. Depressive disorder (Chronic) Insomnia with sleep apnea (Chronic) Obstructive sleep apnea syndrome (Chronic) Chronic headaches (Chronic) Recent Neurology consult for possible papilledema. Urinary incontinence (Chronic) On Detrol Recurrent UTI (Chronic) History of Surgical Procedure (Chronic) a. Right and left toal knee replacements. b. Left knee has been repeatedly operated on with slava surgies, three replacements. Pneumonia (Acute) finish steroids and antibiotics Right ventricular dysfunction (Chronic) Surgical History Fasciotomy, Foot (~1996) LEFT Replacement of total knee joint Bilateral; left-became [id number] surgeries Family History Mother Diabetes Personal history of malignant neoplasm LUNG Father Personal history of malignant neoplasm BRAIN Grandfather No problems noted. Grandfather No problems noted. Grandmother No problems noted. Grandmother No problems noted. Social History Smoking/Tobacco Use Status: Former Tobacco Use tobacco type: cigarettes Quit Date: 01/21/21 Second Hand Exposure: Yes Smoking risk assessment performed?: Yes Alcohol Intake: never Drug use: Never Substance use type: does not use Communication Needs: Hard of Hearing and Corrective Lenses Pets and animals: Yes Pets and animals: cat(s) Sexually active: Yes Current gender identity: female What is your relationship status?: never How often do you talk on the phone with friends or family?: decline to answer How often do you get together with friends or relatives?: decline to answer How often do you attend hoahaoism or caodaism services?: decline to answer Do you belong to any clubs or organized social groups?: no Panel score (0-1 are the most socially isolated patients): 0 Seatbelt use: never Do you feel safe at home: Yes Do you feel safe in your relationship?: Yes Exam Const General: cooperative, comfortable, no acute distress, well developed and ill appearing chronically Nutritional Appearance: well nourished and obese Orientation: alert and awake Resp Effort & Inspection: normal respiratory effort, able to speak in complete sentences and no respiratory distress Cardio Rate: regular rate Rhythm: regular rhythm Skin General skin exam: erythema (mild erythema, warmth and discomfort medial left thigh) Neuro General: patient alert and patient awake Cognition: normal cognition Speech: speech normal Gait: normal gait Sensory Exam: no sensory deficits noted Extrem General: edema Laterality: bilateral Psych Appearance: grossly normal and well kempt Mental Status: mental status grossly normal Speech and Movement: speech and movement normal Course Vital Signs Vital signs: Vital Signs Temperature 36.8 C 05/03/22 11:21 Pulse 85 05/03/22 11:21 Respiratory Rate 18 05/03/22 11:21 Blood Pressure 135/78 05/03/22 11:21 Pulse Oximetry 94 05/03/22 11:21 Temperature 36.8 C 05/03/22 11:21 Temperature Source Oral 05/03/22 11:21 Pulse 85 05/03/22 11:21 Respiratory Rate 18 05/03/22 11:21 Respiratory Effort 05/03/22 11:25 Blood Pressure 135/78 05/03/22 11:21 Blood Pressure Position Sitting 05/03/22 11:21 Pulse Oximetry 94 05/03/22 11:21 Oxygen Delivery Method Room Air 05/03/22 11:21 Oxygen Flow Rate 0 05/03/22 11:21 Pain Level 10 05/03/22 11:21
[2022-05-03] MEDS: Sulfameth/Trimeth DS TAB 1 TAB PO (12:38)
== END 2022-05-03 12:43 | disposition home or self-care (01) ==
PROVIDERS: Emergency Provider Physician Assistant; PCP Family Medicine
DX: L03.116 Cellulitis of left lower limb (principal); J44.9 Chronic obstructive pulmonary disease, unspecified; Z87.891 Personal history of nicotine dependence; Z86.711 Personal history of pulmonary embolism
CPT/HCPCS: 99283; 99284

== ENCOUNTER 2022-05-14 11:38 | Outpatient (CLI) | payer MEDICARE, MEDICAID, SELFPAY ==
--- NOTE | 2022-05-14 11:15 | DI.RAD_ITS ---
Exam(s) XR HAND RT COMPLETE EXAM: XR HAND RT COMPLETE CLINICAL HISTORY: right hand pain TECHNIQUE: COMPARISON: CR XR HAND RT COMPLETE from 04/16/2022 FINDINGS: Three views were obtained. There is moderate narrowing of the cartilaginous joint spaces of the IP j oints. There are moderate hypertrophic marginal osteophytes seen at multiple sites involving the IP joints. No other significant bony abnormality seen. IMPRESSION: Moderate degenerative changes involving the IP joints. RADIATION DOSE DELIVERED: Total DLP
== END 2022-05-14 11:39 | disposition home or self-care (01) ==
LOC: DIORS 11:38
PROVIDERS: PCP Family Medicine; Referring Provider Family Medicine; Visit Provider Physician Assistant
DX: S63.511A Sprain of carpal joint of right wrist, initial encounter (principal); W05.0XXA Fall from non-moving wheelchair, initial encounter; G56.21 Lesion of ulnar nerve, right upper limb; M19.041 Primary osteoarthritis, right hand
CPT/HCPCS: 99213; 73130

== ENCOUNTER 2022-05-17 04:23 | Outpatient (CLI) | payer MEDICARE, MEDICAID, SELFPAY ==
[2022-05-17 13:00] LABS: ESR 29 mm/hr (0-30)
== END 2022-05-17 04:24 | disposition home or self-care (01) ==
LOC: LBO 04:23
PROVIDERS: PCP Family Medicine; Visit Provider Family Medicine
DX: M79.605 Pain in left leg (principal)
CPT/HCPCS: 36415; 85652; 86140

== ENCOUNTER → 2022-06-08 01:54 | Outpatient (CLI) | payer MEDICARE, MEDICAID, SELFPAY ==
--- NOTE | 2022-06-08 11:35 | DI.MAMMO_ITS ---
Exam(s) MG MAMMO SCREENING 60 MIN DUR EXAM: MG MAMMO SCREENING 60 MIN DUR CLINICAL HISTORY: breast cancer screening,Z12.39. TECHNIQUE: Bilateral full field digital CC and MLO mammographic images were obtained with 3D tomosyn thesis and utilizing computer aided detection (CAD). COMPARISON: Prior mammograms were reviewed. Most recent mammogram was 2015. FINDINGS: There has been minimal if any significant change in the appearance and distribution of the fibrogland ular tissue. Multiple small nodules are again noted bilaterally. There are no new spiculated masses. A microcalcification group medial of center in left breast is ac tually less less evident on the present study. However, in the left breast there is a microcalcifica tion group located approximately 15 cm in from the nipple on the CC view, not previously present. Th is will require six-month follow-up. There is no significant architectural distortion nor skin thickening-retraction. IMPRESSION: No radiographic evidence of malignancy in the right breast. Left breast microcalcification group which requires six-month follow-up mammogram. BI-RADS Category 3 - 6 month - Probably Benign Finding: Recommend follow-up mammography in 6 months Breast Density - Category B - Scattered areas of fibroglandular density Breast density Category C or D implies that the patient has dense breast tissue. Dense breast tissue can make it harder to find cancer on a mammogram. Dense breast tissue is also associated with an incr eased risk of breast cancer. This information about the result of the mammogram report was provided to the patient to raise their awareness. Use this report when you speak with the patient about their risks for breast cancer, which includes their family history. At that time, you may recommend additional screening tests (Ultrasoun d or MRI) as these tests may add significant information. A negative radiographic report should not delay biopsy if a dominant or clinically suspicious mass is present. Up to ten percent of cancers are not identified on mammography. A negative report may reinforce clinical impression. Adenosis and dense breasts may obscure an underlying neoplasm. False positive reports average 6 to 10%. Patient will receive a letter notifying them of these results.
== END ==
PROVIDERS: PCP Family Medicine; Visit Provider Family Medicine
DX: Z12.31 Encounter for screening mammogram for malignant neoplasm of breast (principal); R92.0 Mammographic microcalcification found on diagnostic imaging of breast
CPT/HCPCS: 77063; 77067

== ENCOUNTER 2022-10-22 02:32 | Outpatient (CLI) | payer MEDICARE, MEDICAID, SELFPAY ==
[2022-10-22 14:17] LABS: TSH (W/Ref FT4) 9.67 uIU/mL (0.36-3.74)
[2022-10-22 14:43] LABS: FREE T4 1.06 ng/dL (0.76-1.46)
== END 2022-10-22 02:33 | disposition home or self-care (01) ==
LOC: LBO 02:32
PROVIDERS: PCP Family Medicine; Visit Provider Family Medicine
DX: E03.9 Hypothyroidism, unspecified (principal)
CPT/HCPCS: 36415; 84439; 84443

== ENCOUNTER 2022-12-14 04:33 | Outpatient (CLI) | payer MEDICARE, MEDICAID, SELFPAY ==
--- NOTE | 2022-12-14 08:58 | DI.MAMMO_ITS ---
Exam(s) MAMMO DIAGNOSTIC UNI EXAM: MAMMO DIAGNOSTIC UNI CLINICAL HISTORY: f/u abnl mammo, 6 mo f/u, lt breast microcalcification,n64.59. TECHNIQUE: Unilateral left breast cc and MLO mammographic images were obtained with 3D tomosynthesis technique and utilizing computer aided detection (CAD). Also performed spot Mag views of previously described microcalcification group. COMPARISON: Prior mammograms were reviewed, the most recent being May 2022.. FINDINGS: No new spiculated masses. The previously described microcalcification group in the left breast remains benign in appearance at this time. No new architectural distortion or skin thickening-traction. IMPRESSION: Benign-appearing microcalcification group in the left breast. Appropriate follow-up is to repeat spot Mag views of this microcalcification group at the time of her next yearly mammogram which should be in 6 months from the present time. The patient was informed of the findings and follow-up recommendations prior to leaving the [facility] today. BI-RADS Category 3 - 6 month - Probably Benign Finding: Recommend follow-up mammography in 6 months Breast Density - Category B - Scattered areas of fibroglandular density Breast density Category C or D implies that the patient has dense breast tissue. Dense breast tissue can make it harder to find cancer on a mammogram. Dense breast tissue is also associated with an incr eased risk of breast cancer. This information about the result of the mammogram report was provided to the patient to raise their awareness. Use this report when you speak with the patient about their risks for breast cancer, which includes their family history. At that time, you may recommend additional screening tests (Ultrasoun d or MRI) as these tests may add significant information. A negative radiographic report should not delay biopsy if a dominant or clinically suspicious mass is present. Up to ten percent of cancers are not identified on mammography. A negative report may reinforce clinical impression. Adenosis and dense breasts may obscure an underlying neoplasm. False positive reports average 6 to 10%. Patient will receive a letter notifying them of these results.
== END 2022-12-14 04:53 ==
PROVIDERS: PCP Family Medicine; Visit Provider Family Medicine
DX: N64.59 Other signs and symptoms in breast (principal)
CPT/HCPCS: 77061; 77065; G0279

== ENCOUNTER 2023-03-30 02:48 | Outpatient (CLI) | payer MEDICARE, MEDICAID, SELFPAY ==
[2023-03-30 12:12] LABS: ALT 28 U/L (14-59); AST 24 U/L (15-37); Albumin 3.1 g/dL (3.4-5.0); Alkaline Phosphatase 88 U/L (46-116); Anion Gap 7.8 mmol/L (3-11); BUN 12 mg/dL (7-18); Bilirubin, Total 1.3 mg/dL (0.2-1.0); CO2 33.2 mmol/L (21.0-32.0); CREATININE 0.7 mg/dL (0.55-1.02); Calcium 8.3 mg/dL (8.5-10.1); Calculated LDL 129 mg/dL (<100); Chloride 102 mmol/L (98-107); Cholesterol 214 mg/dL (<200); Estimated GFR 95.32 (mL/min/1.73m2); Glucose 104 mg/dL (74-106); HDL Cholesterol 48 mg/dL (40-60); Potassium 3.7 mmol/L (3.5-5.1); Sodium 143 mmol/L (136-145); Total Protein 7.7 g/dL (6.4-8.2); Triglyceride 188 mg/dL (<150)
== END 2023-03-30 02:49 | disposition home or self-care (01) ==
LOC: LBO 02:48
PROVIDERS: PCP Family Medicine; Visit Provider Family Medicine
DX: E78.5 Hyperlipidemia, unspecified (principal); R10.9 Unspecified abdominal pain
CPT/HCPCS: 36415; 80053; 80061

== ENCOUNTER → 2023-04-20 09:09 | Outpatient (BNVA) | payer MEDICARE, MEDICAID, SELFPAY | PROVIDERS: PCP Family Medicine; Referring Provider Family Medicine; Visit Provider Nurse Practitioner Adult Health | DX: G56.03 Carpal tunnel syndrome, bilateral upper limbs (principal) | CPT/HCPCS: 95911; 99203; 99214 ==

== ENCOUNTER → 2023-05-17 09:30 | Outpatient (BNVA) | payer MEDICARE, MEDICAID, SELFPAY | PROVIDERS: PCP Family Medicine; Referring Provider Family Medicine; Visit Provider Surgery | DX: I87.2 Venous insufficiency (chronic) (peripheral) (principal); I89.0 Lymphedema, not elsewhere classified; L03.115 Cellulitis of right lower limb | CPT/HCPCS: 99212; 99213 ==

== ENCOUNTER 2023-07-09 15:51 | Emergency (ER) | payer MEDICARE, MEDICAID, SELFPAY ==
[2023-07-09] VITALS (18 sets, daily range): BP systolic 95–164; BP diastolic 48–94; PULSE 78–90; RESP 10–30; TEMP 37.3; O2SAT 94–100
--- NOTE | 2023-07-09 16:00 | DI.RAD_ITS ---
Exam(s) XR CHEST 2V PA LATERAL EXAM: XR CHEST 2V PA LATERAL CLINICAL HISTORY: cough, hypoxia, copd TECHNIQUE: 2D digital imaging was performed of the chest. Two images were obtained. PA and lateral views were obtained. COMPARISON: CR XR PORTABLE CHEST AP from 03/30/2022 FINDINGS: Examination limited by patient body habitus. MEDIASTINUM: Normal. HEART: Cardiomegaly. PULMONARY VASCULATURE: Stable mild pulmonary venous congestion. LUNGS: There are low lung volumes. No focal consolidating infiltrates are seen. PLEURAL SPACE: No pleural effusion or pneumothorax. BONE:Within normal limits for the patient's age. OTHER FINDINGS:Normal. IMPRESSION: 1. No acute pulmonary findings. 2. Stable cardiomegaly and pulmonary venous congestion. DATA REPOSITORY: RADIATION DOSE DELIVERED:
--- OUTSIDE RECORDS SUMMARY | 2023-07-09 16:15 | XMS_ITS | Continuity of Care Document ---
Author Name Unknown Organization [facility] Address [address] [place] [phone] Care Team Providers Care Guest Service Representative Name Role Phone ERYN GARCIA, CYRIL Primary Care Physician Encounter [facility] NBR [id number] Date(s): 12/07/22 - 12/07/[address] [phone] Discharge Disposition: Home or Self Care Attending Physician: Doc Díaz MD Admitting Physician: Doc Díaz MD Referring Physician: Doc Díaz MD Allergies, Adverse Reactions, Alerts Substance Reaction Severity Status Morphine Sulfate Unknown Active oxyCODONE Unknown Active HYDROcodone Unknown Active Assessment and Plan Future Appointments Medications furosemide 40 mg oral tablet 40 mg = 1 tab, Oral, Daily, # 30 tab, 0 Refill(s) Start Date: 11/23/22 Status: Ordered levothyroxine 175 mcg (0.175 mg) oral tablet 175 mcg = 1 tab, Oral, Daily, # 30 tab, 0 Refill(s) Start Date: 11/23/22 Status: Ordered pantoprazole 40 mg oral granule, delayed release 1 packets, Oral, Daily, Take 1 tablet daily 30 minutes before supper., # 30 packets, 11 Refill(s), Pharmacy: [facility] #[id number] Start Date: 11/23/22 Stop Date: 11/18/23 Status: Ordered Problem List Condition Confirmation Course Effective Dates [facility] Status Informant COPD - Chronic obstructive pulmonary disease Confirmed Active Dysphagia Confirmed Active Hypothyroidism Confirmed Active Knee pain Confirmed Active Mixed hearing loss Confirmed Active Procedures Procedure Date Related Diagnosis Body Site Status Fasciotomy 1 Completed Total knee replacement Co mpleted 31383 Results Radiology Reports * Exam Date Time Procedure Performing Provider Status 12/07/22 10:07 AM XR Barium Swallow Leyda Kebede; Au th (Verified) Notes: (XR Barium Swallow) Reason For Exam: Dysphagia for liquids and solids XR Barium Swallow EXAM DESCRIPTION: XR Barium Swallow 12/07/2022 INDICATION: DYSPHAGIA FOR LIQUIDS AND SOLIDS TECHNIQUE: A barium swallow examination was performed. Secondary to patient body habitus, the patient was seated at the foot of the upright fluoroscopy table. This precluded fluoroscopic evaluation of the entire extent of the esophagus. The hypopharynx as well as the proximal and midthoracic esophagus were evaluated in the AP projection. Fluoroscopy time: 0.5 minutes Image number: 26 COMPARISON: None FINDINGS: The patient swallowed the barium suspension without difficulty. Views of the hypopharynx are unremarkable. The visualized proximal and midthoracic esophagus demonstrate normal distensibility and peristalsis with no ulceration, stricture or neoplasm. As described above, the distal esophagus could not be evaluated on this examination. IMPRESSION: Limited examination as detailed above. The hypopharynx region as well as visualized portions of the esophagus demonstrate no abnormality as detailed above. JOB #: [id number] Final Signed by: Luke Ford MD Signed (Electronic Signature): 12/07/2022 10:15 am Social History Social History Type Response Tobacco Former tobacco user Tobacco Use:. Sex RF Esophagus Views W barium contrast PO * Luke Ford MD: VERIFY, VERIFY Event Display: Report EXAM DESCRIPTION: XR Barium Swallow 12/07/2022 INDICATION: DYSPHAGIA FOR LIQUIDS AND SOLIDS TECHNIQUE: A barium swallow examination was performed. Secondary to patient body habitus, the patient was seated at the foot of the upright fluoroscopy table. This precluded fluoroscopic evaluation of the entire extent of the esophagus. The hypopharynx as well as the proximal and midthoracic esophagus were evaluated in the AP projection. Fluoroscopy time: 0.5 minutes Image number: 26 COMPARISON: None FINDINGS: The patient swallowed the barium suspension without difficulty. Views of the hypopharynx are unremarkable. The visualized proximal and midthoracic esophagus demonstrate normal distensibility and peristalsis with no ulceration, stricture or neoplasm. As described above, the distal esophagus could not be evaluated on this examination. IMPRESSION: Limited examination as detailed above. The hypopharynx region as well as visualized portions of the esophagus demonstrate no abnormality as detailed above. JOB #: [id number] Final Signed by: Luke Ford MD Signed (Electronic Signature): 12/07/2022 10:15 am Patient Care team information Care Team Personnel Name: CYRIL CERNA MD Position: No Access Member Role: Primary Care Physician Address: Address: [address] [place] [phone] [facility] Care Team Related Persons Name: RAVEN MINA Address: Home Name: YULIANA PURI Address: Home
--- OUTSIDE RECORDS SUMMARY | 2023-07-09 16:15 | XMS_ITS | Continuity of Care Document ---
Author Name Unknown Organization [facility] Ambulatory Clinics Address [address] [place] [address] Care Team Providers Care Humidifier Maintenance Worker Name Role Phone ALPHONSO MURPHY MD Primary Care Physician [phone] Encounter [facility] NBR [id number] Date(s): 02/14/23 - 02/14/23 [facility] Ambulatory Clinics [address] [place], [place] [address] Encounter Diagnosis Dysphagia(Discharge Diagnosis) - 02/14/23 Waterbrash symptom(Discharge Diagnosis) - 02/14/23 Discharge Disposition: Home or Self Care Attending Physician: Joellen Ayala APRN Referring Physician: ALPHONSO MURPHY MD Allergies, Adverse Reactions, Alerts Substance Reaction Severity Status Morphine Sulfate Unknown Active oxyCODONE Unknown Active HYDROcodone Unknown Active Assessment and Plan Future Appointments Functional Status 02/14/23 Other exposure to Infectious Disease Non e Medications furosemide 40 mg oral tablet 40 mg = 1 tab, Oral, Daily, # 30 tab, 0 Refill(s) Start Date: 11/23/22 Status: Ordered ipratropium-albuterol 0.5 mg-2.5 mg/3 mL inhalation solution 3 mL, NEB, QID, # 30 EA, 0 Refill(s) Start Date: 01/10/23 Status: Ordered levothyroxine 175 mcg (0.175 mg) oral tablet 175 mcg = 1 tab, Oral, Daily, # 90 tab, 0 Refill(s) Start Date: 01/10/23 Status: Ordered metFORMIN 1000 mg oral tablet 1,000 mg = 1 tab, Oral, BID, # 60 tab, 0 Refill(s) Start Date: 01/10/23 Status: Ordered nystatin 100,000 units/g topical powder 1 guerita, Topical, BID, # 15 g, 0 Refill(s) Start Date: 01/10/23 Status: Ordered pantoprazole 20 mg oral delayed release tablet 20 mg = 1 tab, Oral, Daily, # 30 tab, 5 Refill(s), Pharmacy: [facility] #[id number] Start Date: 02/14/23 Stop Date: 08/13/23 Status: Ordered Problem List Condition Confirmation Course Effective Dates Status H ealth Status Informant Allergic conjunctivitis Confirmed Active Arthritis Confirmed Active Bilateral hearing loss Confirmed Active Bronchitis Confirmed Active Carpal tunnel Confirmed Active Cellulitis Confirmed Active Chronic respiratory failure Confirmed Active COPD - Chronic obstructive pulmonary disease Confirmed Active DVT - Deep vein thrombosis Confirmed Active Dysphagia Confirmed Active Grief Confirmed Active Headache Confirmed Active Hyperglycemia Confirmed Active Hypothyroidism Confirmed Active Insomnia Confirmed Active Knee pain Confirmed Active Mixed hearing loss Confirmed Active Morbid obesity Confirmed Active O2 - oxygen Confirmed Active DAVID - Obstructive sleep apnea Confirmed Active Pleural effusion 1 Confirmed Active Right ventricular cardiac dysfunction Confirmed Active Thyroid disease Confirmed Active Thyroid enlargement Confirmed Active Ulcer of right lower leg Confirmed Active Varicose vein Confirmed Active Waterbrash symptom Confirmed Active 1right Procedures Procedure Date Related Diagnosis Body Site Status Fasciotomy 1 Completed Total knee replacement Co mpleted 42094 Vital Signs Most recent to oldest [Reference Range]: 1 Temperature Temporal Artery [36-38 Deg C ] 36.4 Deg C (02/14/23 9:32 AM) Apical Heart Rate [60-100 bpm] 76 bpm (02/14/23 9:32 AM) Weight 195.04 kg (02/14/23 9:32 AM) Weight Measured (lbs) 429.989 lb (02/14/23 9:32 AM) [place] Body Weight Calculated 53.55 kg (02/14/23 9:32 AM) Height 161.29 cm (02/14/23 9:32 AM) Height/Length Measured (inches) 63.5 inc h (02/14/23 9:32 AM) BSA Measured 2.96 m2 (02/14/23 9:32 AM) Body Mass Index 74.97 kg/m2 (02/14/23 9:32 AM) Social History Social History Type Response Tobacco Former tobacco user Tobacco Use:. Sex Physician Outpatient Note * Joellen Ayala APRN W: PERFORM Event Display: Office Clinic Note Physician Authored Date: [id number] CYN PRADO :1955 Age:67 years Sex:Female Visit Date:02/14/2023 Primary Care Physician: ALPHONSO MURPHY MD Chief Complaint Dysphagia follow-up History of Present Illness Patient is a 67-year-old female here today at the request of??Dr. Alphonso Murphy??with morbid obesity,??O2 dependent COPD, status post thyroidectomy complaining of 3 years of progressive difficulty swallowing liquids and solids.?? She is an established patient today??for follow-up of??dysphagia. ?? Patient reports that initially it was felt that??she had mass effect from??her thyroid.?? However??since her surgery 2 years ago she has had progressive worsening??of her??swallowing??without bolus impactions.?? She has difficulty swallowing liquids and solids equally.?? She denies daily??heartburn??or?? regurgitation.?? She does admit to??episodes of waterbrash approximately 3 times per week. ??She takes no antiacid medications.?? She denies??frequent??coughing or choking after liquid swallow.? She??last visit??she was given a prescription??for potassium??resolved 40 mg daily??however??she states??was unable to??get it filled through her pharmacy. ??During the visit we called the pharmacy and was told??that prior authorization is needed. ??We have received no notification.?? Denies any changes in your symptoms??or frequency. ??Denies any recent ?Has no first-degree relatives with gastrointestinal cancers.? She has not had a previous upper or lower endoscopy. ?? Barium swallow done 12/07/2022 was normal??that was a limited exam??as the distal portion could not be viewed. Review of Systems Pertinent positives and negatives are discussed in HPI. Physical Exam Vitals & Measurements T:??36.4?C ??(Temporal Artery)?? HR:??76??(Apical)?? SpO2:??97%?? HT:??161.29??cm?? WT:??195.04??kg?? BMI:??74.97?? BSA:??2.96?? General: Well-nourished well-developed??morbidly obese female??in no acute distress. HEENT: Head is normocephalic, trachea midline, and no cervical lymphadenopathy. Respiratory: Respirations are even and unlabored. ??Lungs are clear to auscultation. Cardiovascular: Regular rate and rhythm with S1 and S2. Abdomen: Positive bowel sounds x4 quadrants, no masses, no guarding, no tenderness. ??No hepatosplenomegaly. ??Abdomen is soft. Skin: Warm, dry, and pink. Neurological: Alert and oriented x3, speech is clear.?? In motorized scooter. Psychological: Pleasant, calm and cooperative. Assessment/Plan 1.??Dysphagia??R13.10 Barium swallow was normal??the study was limited??without good visualization of the distal esophagus.?? She reports her symptoms are more??upper esophagus.?? She has dysphagia of solids and liquids.?? She has not yet started pantoprazole.?? We will start prior authorization.?If denied we will sen d??prescription for omeprazole??40 mg daily. ??Reevaluate in??4 to 5 weeks. ??She continues to have??dysphagia??will refer to [facility]??for EGD??as she is high risk for respiratory complications. ??She is best served at a tertiary center.?? If EGD is unremarkable??would??recommend??high-resolution impedance and manometry studies.?? This may be more of just??motility??given dysphagia of liquids. 2.??Waterbrash symptom??R12 As above. Orders: Follow-up Appointment Request [facility], *Est. 03/14/23 +/- 4 days, Future Order, 4-5 week follow up dysphagia, In [facility], [facility] Gastroenterology Voice recognition software utilized which may result in minor frame stylist error. Problem List/Past Medical History Ongoing Allergic conjunctivitis Arthritis Bilateral hearing loss Bronchitis Carpal tunnel Cellulitis Chronic respiratory failure COPD - Chronic obstructive pulmonary disease DVT - Deep vein thrombosis Dysphagia Grief Headache Hyperglycemia Hypothyroidism Insomnia Knee pain Mixed hearing loss Morbid obesity O2 - oxygen DAVID - Obstructive sleep apnea Pleural effusion Right ventricular cardiac dysfunction Thyroid disease Thyroid enlargement Ulcer of right lower leg Varicose vein Waterbrash symptom Historical No qualifying data Procedure/Surgical History ???Fasciotomy???Total knee replacement Medications furosemide 40 mg oral tablet, 40 mg= 1 tab, Oral, Daily ipratropium-albuterol 0.5 mg-2.5 mg/3 mL inhalation solution, 3 mL, NEB, QID levothyroxine 175 mcg (0.175 mg) oral tablet, 175 mcg= 1 tab, Oral, Daily metFORMIN 1000 mg oral tablet, 1000 mg= 1 tab, Oral, BID nystatin 100,000 units/g topical powder, 1 guerita, Topical, BID pantoprazole 40 mg oral granule, delayed release, 1 packets, Oral, Daily, 11 refills Allergies HYDROcodone Morphine Sulfate oxyCODONE Social History Alcohol Never Electronic Cigarette/Vaping Electronic Cigarette Use: Never. Substance Use Never Tobacco Former tobacco user Tobacco Use:. Family History Cancer: Mother and Father. Diabetes mellitus: Mother. Family Member(s): ?? FATHER, at age: Unknown. Cause of : Family Member(s): ?? MOTHER, at age: Unknown. Cause of : Electronically Signed on 02/14/23 10:01 AM Joellen Ayala APRN Patient Care team information Care Team Personnel Name: ALPHONSO MURPHY MD Position: No Access Member Role: Primary Care Physician Address: Address: [address] [place] [phone] [facility] Care Team Related Persons Name: RAVEN MINA Address: Home Name: YULIANA PURI Address: Home
--- OUTSIDE RECORDS SUMMARY | 2023-07-09 16:15 | XMS_ITS | Continuity of Care Document ---
Author Name Unknown Organization [facility] Ambulatory Clinics Address [address] [place] [address] Care Team Providers Care Flour Worker Name Role Phone ALPHONSO MURPHY MD Primary Care Physician [phone] Encounter [facility] NBR [id number] Date(s): 11/23/22 - 11/23/22 [facility] Ambulatory Clinics [address] [place], [place] [address] Encounter Diagnosis Dysphagia(Discharge Diagnosis) - 11/23/22 Discharge Disposition: Home or Self Care Attending Physician: Doc Díaz MD Allergies, Adverse Reactions, Alerts Substance Reaction Severity Status Morphine Sulfate Unknown Active oxyCODONE Unknown Active HYDROcodone Unknown Active Assessment and Plan Future Appointments Future Scheduled Tests Radiology* XR Barium Swallow 11/23/22 Functional Status 11/23/22 Other exposure to Infectious Disease Non e [...] supper., # 30 packets, 11 Refill(s), Pharmacy: [facility] #[id number] Start Date: 11/23/22 Stop Date: 11/18/23 Status: Ordered Problem List Condition Confirmation Course Effective Dates Status H ealt Status Informant COPD - Chronic obstructive pulmonary disease Confirmed Active Dysphagia Confirmed Active Hypothyroidism Confirmed Active Knee pain Confirmed Active Mixed hearing loss Confirmed Active Procedures Procedure Date Related Diagnosis Body Site Status Fasciotomy 1 Completed Total knee replacement Co mpleted 67804 Vital Signs Most recent to oldest [Reference Range]: 1 Temperature Temporal Artery [36-38 Deg C ] 36.1 Deg C (11/23/22 1:01 PM) Apical Heart Rate [60-100 bpm] 80 bpm (11/23/22 1:01 PM) Blood Pressure [90-140/60-90 mmHg] 130/7 0mmHg (11/23/22 1:01 PM) Weight 195.0 kg (11/23/22 1:01 PM) Weight Measured (lbs) 429.901 lb (11/23/22 1:01 PM) Social History Social History Type Response Tobacco Former tobacco user Tobacco Use:. Sex Physician Outpatient Note * Doc Díaz MD: PERFORM Event Display: Office Clinic Note Physician Authored Date: [id number] CYN PRADO :1955 Age:67 years Sex:Female Visit Date:11/23/2022 Primary Care Physician: ALPHONSO MURPHY MD Chief Complaint Difficulty swallowing History of Present Illness Initial visit for this 67-year-old??female patient of??Dr. Alphonso Murphy??with morbid obesity,??O2 dependent COPD, status post thyroidectomy complaining of 3 years of progressive difficulty swallowing liquids and solids. ?? Patient reports that initially it was felt that??she had mass effect from??her thyroid.?? However??since her surgery 2 years ago she has had progressive worsening??of her??swallowing??without bolus impactions.?? She has difficulty swallowing liquids and solids equally.?? She denies daily??heartbu rn??or?? regurgitation.?? She does admit to??episodes of waterbrash approximately 3 times per week.??She takes no antiacid medications.?? She denies??frequent??coughing or choking after liquid swallow.?? She has no first- degree relatives with gastrointestinal cancers.?? She has not had a previous u pper or lower endoscopy. Physical Exam Vitals & Measurements T:??36.1?C ??(Temporal Artery)?? HR:??80??(Apical)?? BP:??130/70?? SpO2:??91%?? WT:??195.0??kg?? Morbidly obese??white female??with nasal cannula in place??and an automated??wheelchair.?? She is in no acute distress. Lungs:??Scattered end expiratory wheezes bilaterally Heart: Regular rhythm S1-S2 Abdomen: Normoactive bowel sounds,??suboptimal exam due to body habitus but no gross tenderness,??or masses appreciated Assessment/Plan 1.??Dysphagia??R13.10 Given dysphagia for liquids and solids question dysmotility.?Empiric??PPI??for GERD,??question esophagitis. ??Although obstruction??from??neoplasm/stricture??or esophagitis??cannot be excluded,??pr esentation is more consistent with??progressive dysmotility.?? Obtain barium esophagram??with barium tablet.?? If??the patient has an obstructing lesion??patient be referred??to [facility] for??upper endoscopy??given that??she is a very high risk??for??respiratory complications from sedation??and??will need to be??managed in a tertiary facility.?? If barium esophagram is negative??and the patient has no improvement??following??an empiric trial of PPI,??referral to [facility]??for??high-resolutionesophageal manometry.?? Return to clinic in 5 weeks. Ordered: pantoprazole 40 mg oral granule, delayed release, 1 packets, Oral, Daily, Take 1 tablet daily 30 minutes before supper., # 30 packets, 11 Refill(s), Pharmacy: [facility] #93 ?? Voice recognition software utilized which may result in minor chief deputy errors. Problem List/Past Medical History Ongoing COPD - Chronic obstructive pulmonary disease Dysphagia Hypothyroidism Knee pain Mixed hearing loss Historical No qualifying data Procedure/Surgical History ???Fasciotomy???Total knee replacement Medications furosemide 40 mg oral tablet, 40 mg= 1 tab, Oral, Daily levothyroxine 175 mcg (0.175 mg) oral tablet, 175 mcg= 1 tab, Oral, Daily pantoprazole 40 mg oral granule, delayed release, 1 packets, Oral, Daily, 11 refills Allergies HYDROcodone Morphine Sulfate oxyCODONE Social History Alcohol Never Electronic Cigarette/Vaping Electronic Cigarette Use: Never. Substance Use Never Tobacco Former tobacco user Tobacco Use:. Family History Cancer: Mother. Family Member(s): ?? MOTHER, at age: Unknown. Cause of : Family Member(s): ?? FATHER, at age: Unknown. Cause of : Electronically Signed on 11/23/22 01:29 PM Doc Díaz MD Patient Care team information Care Team Personnel Name: ALPHONSO MURPHY MD Position: No Access Member Role: Primary Care Physician Address: Address: [address] [place] [phone] [facility] Care Team Related Persons Name: RAVEN MINA Name: YULIANA PURI
--- OUTSIDE RECORDS SUMMARY | 2023-07-09 16:15 | XMS_ITS | Continuity of Care Document ---
Author Name Unknown Organization [facility] Address [address] [place] [address] Care Team Providers Care Dredge Pipe Installer Name Role Phone CYRIL CERNA MD Primary Care Physician Encounter [facility] NBR [id number] Date(s): 11/29/22 - 11/29/22 [facility] [address] [place], [place] [address] Discharge Disposition: Home Allergies, Adverse Reactions, Alerts Substance Reaction Severity Status Morphine Sulfate Unknown Active oxyCODONE Unknown Active HYDROcodone Unknown Active Assessment and Plan Future Appointments Future Scheduled Tests Radiology* XR Barium Swallow 12/07/22 Medications furosemide 40 mg oral tablet 40 [...] supper., # 30 packets, 11 Refill(s), Pharmacy: [facility] #[id number] Start Date: 11/23/22 Stop Date: 11/18/23 Status: Ordered Problem List Condition Confirmation Course Effective Dates Status H ealt Status Informant COPD - Chronic obstructive pulmonary disease Confirmed Active Dysphagia Confirmed Active Hypothyroidism Confirmed Active Knee pain Confirmed Active Mixed hearing loss Confirmed Active Procedures Procedure Date Related Diagnosis Body Site Status Fasciotomy 1 Completed Total knee replacement Co mpleted 67681 Social History Social History Type Response Tobacco Former tobacco user Tobacco Use:. Sex Patient Care team information Care Team Personnel Name: CYRIL CERNA MD Position: No Access Member Role: Primary Care Physician Address: Address: [address] [place] [phone] [facility] Care Team Related Persons Name: RAVEN MINA Address: Home Name: YULIANA PURI Address: Home
--- OUTSIDE RECORDS SUMMARY | 2023-07-09 16:15 | XMS_ITS | Continuity of Care Document ---
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 Name Role Phone CYRIL CERNA MD Primary Care Physician Encounter [facility] NBR [id number] Date(s): 11/23/22 - 11/23/22 [facility] [address] [place], [place] [address] Discharge Disposition: Home Allergies, Adverse Reactions, Alerts Substance Reaction Severity Status Morphine Sulfate Unknown Active oxyCODONE Unknown Active HYDROcodone Unknown Active Assessment and Plan Future Appointments Future Scheduled Tests Radiology* XR Barium Swallow 11/23/22 Medications furosemide 40 mg oral tablet 40 [...] supper., # 30 packets, 11 Refill(s), Pharmacy: [facility] #[id number] Start Date: 11/23/22 Stop Date: 11/18/23 Status: Ordered Problem List Condition Confirmation Course Effective Dates Status H ealt Status Informant COPD - Chronic obstructive pulmonary disease Confirmed Active Dysphagia Confirmed Active Hypothyroidism Confirmed Active Knee pain Confirmed Active Mixed hearing loss Confirmed Active Procedures Procedure Date Related Diagnosis Body Site Status Fasciotomy 1 Completed Total knee replacement Co mpleted 92514 Social History Social History Type Response Tobacco Former tobacco user Tobacco Use:. Sex Patient Care team information Care Team Personnel Name: CYRIL CERNA MD Position: No Access Member Role: Primary Care Physician Address: Address: [address] [place] [phone] [facility] Care Team Related Persons Name: RAVEN MINA Name: YULIANA PURI
--- NOTE | 2023-07-09 16:16 | W.ED.GENAD ---
Discharge Plan Disposition Patient Disposition: Home Condition: Improving Discharge Details Chief Complaint: RespSymp Clinical Impression: COPD (chronic obstructive pulmonary disease) Primary Care Provider: Alphonso Murphy ED Provider: Rory Wall Home Meds and New Rx's Prescriptions: No Action fluticasone propionate [Flonase Allergy Relief] 50 mcg/actuation spray,suspension 1 spray NS DAILY Qty: 1 8RF nystatin 100,000 unit/gram powder 1 applic TP BID PRN (Reason: intertrigo) Qty: 30 5RF ascorbic acid (vitamin C) 1,000 MG tablet 1,000 mg PO DAILY (DME) Aerochamber Mini 1 EACH spacer 1 ea Inhalation PRN Qty: 1 Rx Instructions: DIRECTED WITH INHALER BiPAP Inhalation Gas 5 l IN DIRECTED Rx Instructions: sleep apnea ([facility] sleep lab 2013) uses with oxygen oxygen Inhalation 2 l Intranasal DIRECTED Patient Comments: Continuous and uses with bipap Rx Instructions: 2L/NC continuous albuterol sulfate [ProAir HFA] 90 mcg/actuation HFA aerosol inhaler 1 - 2 puff Inhalation Q6H PRN Qty: 1 11RF betamethasone, augmented 0.05 % lotion 1 applic topical BID PRN (Reason: allergic reaction) Qty: 60 2RF alclometasone 0.05 % cream 1 applic topical BID PRN (Reason: itching) Qty: 45 1RF furosemide 40 mg tablet 80 mg PO DAILY Qty: 90 3RF Rx Instructions: [place] [facility] [place] 0.5 mg-3 mg(2.5 mg base)/3 mL solution for nebulization 3 ml IH QID MDD 4 nebs Qty: 180 3RF ketoconazole 2 % cream 1 applic topical BID PRN (Reason: facial rash) Qty: 60 1RF levothyroxine [Levo-T] 175 mcg tablet 175 mcg PO DAILY Qty: 90 3RF aspirin 325 MG tablet 325 mg PO DAILY Qty: 0 0RF Discharge Instructions Instructions: COPD (Chronic Obstructive Pulmonary Disease) (ED) Additional Instructions: Please follow-up with primary care physician Medical Decision Making 68-year-old female history of morbid obesity, COPD, presents with cough and expiratory wheeze, afebrile nontoxic, patient on 3 L nasal cannula at home, placed on 3 L nasal cannula on arrival, nebs steroid basic labs COVID flu RSV screening and chest x-ray have been ordered. High clinical suspicion for viral respiratory illness leading to COPD exacerbation versus pneumonia. Lower suspicion for ACS CHF PE or aortic pathology. 20: 20 patient resting comfortably no acute distress, lungs greatly improved after nebs and steroid. Patient has access to albuterol at home. Will follow-up with her primary care physician HPI General Date/Time Provider Initiated Documentation: 07/09/23 16:11. HPI Narrative: 68-year-old female history of morbid obesity, COPD presents with cough and wheeze over the past couple of days. Is on home oxygen 3 L nasal cannula. Related Data Home Medications Medication Instructions Recorded Confirmed ascorbic acid (vitamin C) 1,000 mg 1,000 mg PO DAILY 11/25/12 07/09/23 tablet inhalational spacing device ##1 12/21/13 07/09/23 (Aerochamber Mini) Bipap 5 l IN DIRECTED 07/23/14 07/09/23 Oxygen 2 l intranasal DIRECTED 12/24/14 07/09/23 aspirin 325 mg tablet 325 mg PO DAILY #0 tab-caps 06/22/15 07/09/23 albuterol sulfate 90 mcg/actuation 1 - 2 puff inhalation Q6H PRN ##1 06/06/20 07/09/23 aerosol inhaler (ProAir HFA) fluticasone propionate 50 1 spray NS DAILY ##1 01/14/21 07/09/23 mcg/actuation nasal spray,suspension (Flonase Allergy Relief) betamethasone, augmented 0.05 % 1 applic topical BID PRN allergic 06/20/21 07/09/23 lotion reaction #60 mL alclometasone 0.05 % topical cream 1 applic topical BID PRN itching 10/16/22 07/09/23 #45 grams furosemide 40 mg tablet 80 mg (2 x 40 mg) PO DAILY #90 tabs 10/16/22 07/09/23 ipratropium 0.5 mg-albuterol 3 mg 3 ml inhalation QID COPD 10/16/22 07/09/23 (2.5 mg base)/3 mL nebulization exacerbation/wheezing #180 mL soln ketoconazole 2 % topical cream 1 applic topical BID PRN facial 10/16/22 07/09/23 rash #60 grams levothyroxine 175 mcg tablet 175 mcg PO DAILY #90 tabs 10/16/22 07/09/23 (Levo-T) nystatin 100,000 unit/gram topical 1 applic topical BID PRN 02/08/23 07/09/23 powder intertrigo #30 grams Previous Rx's Medication Instructions Recorded aspirin 325 mg tablet 325 mg PO DAILY #0 tab-caps 06/22/15 albuterol sulfate 90 mcg/actuation 1 - 2 puff inhalation Q6H PRN ##1 06/06/20 aerosol inhaler (ProAir HFA) fluticasone propionate 50 1 spray NS DAILY ##1 01/14/21 mcg/actuation nasal spray,suspension (Flonase Allergy Relief) betamethasone, augmented 0.05 % 1 applic topical BID PRN allergic 06/20/21 lotion reaction #60 mL alclometasone 0.05 % topical cream 1 applic topical BID PRN itching 10/16/22 #45 grams furosemide 40 mg tablet 80 mg (2 x 40 mg) PO DAILY #90 tabs 10/16/22 ipratropium 0.5 mg-albuterol 3 mg 3 ml inhalation QID COPD 10/16/22 (2.5 mg base)/3 mL nebulization exacerbation/wheezing #180 mL soln ketoconazole 2 % topical cream 1 applic topical BID PRN facial 10/16/22 rash #60 grams levothyroxine 175 mcg tablet 175 mcg PO DAILY #90 tabs 10/16/22 (Levo-T) nystatin 100,000 unit/gram topical 1 applic topical BID PRN 02/08/23 powder intertrigo #30 grams Allergies Allergy/AdvReac Type Severity Reaction Status Date / Time hydrocodone Allergy Severe ITCHING Verified 07/09/23 18:28 morphine Allergy Mild PRURITIS Verified 07/09/23 18:28 oxycodone Allergy Mild ITCHING Verified 07/09/23 18:28 General Stated Complaint: RespSymp REUBEN: 2 Review of Systems Narrative: Review of Systems Constitutional: negative Eyes: negative ENT: negative Cardiovascular: negative Respiratory: Cough, wheeze Gastrointestinal: negative : negative Musculoskeletal: negative Skin: negative Neurologic: negative Psych: negative PFSH All Active Problems (Updated 07/09/23 @ 20:20 by Rory Wall MD) COPD (chronic obstructive pulmonary disease) (Chronic) Venous stasis dermatitis (Acute) Lymphedema (Acute) Chronic obstructive lung disease (Chronic) Quit smoking 2010. PFTs 09/2012 showed an FEV1 of 60% with improvement to 80% with bronchodilator, thought to be severe restrictive disease. Depressive disorder (Chronic) Insomnia with sleep apnea (Chronic) Obstructive sleep apnea syndrome (Chronic) Chronic headaches (Chronic) Recent Neurology consult for possible papilledema. Urinary incontinence (Chronic) On Detrol Recurrent UTI (Chronic) History of Surgical Procedure (Chronic) a. Right and left toal knee replacements. b. Left knee has been repeatedly operated on with slava surgies, three replacements. 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) Knee pain, bilateral (Chronic 07/23/14) s/p bilat TKR (left infected with mult surg and decreased mobility) Morbid obesity (Acute 04/05/13) Sensorineural hearing loss, bilateral (Chronic 08/29/13) DVT prophylaxis (Acute) Advance directive on file (Acute) Low back pain with sciatica (Chronic 05/03/14[place] [facility] [place] Varicose veins of lower extremity (Chronic) Depression (Chronic) Grief at loss of child (Acute) Chronic respiratory failure with hypoxia and hypercapnia (Chronic) Status post total bilateral knee replacement (Acute) Pleural effusion on right (Acute 05/03/14) History of fasciotomy (Acute) Chest pain (Acute 07/23/14) Chronic obstructive pulmonary disease (Chronic) Wrist pain, right (Acute) Allergic conjunctivitis (Acute) Sprain of scapholunate ligament (Acute 03/21/19) COPD exacerbation (Acute) Community acquired pneumonia (Acute) DAVID (obstructive sleep apnea) (Chronic) Hyperglycemia (Acute) Allergic sinusitis (Acute) Mixed conductive and sensorineural hearing loss of both ears (Acute) Thyroid enlargement (Acute) S/p thyroidectomy 2020 Fever (Acute) Cellulitis of leg, right (Acute) Ulcer of right lower extremity (Acute) Bronchitis (Acute) Impacted cerumen, left ear (Acute) Conductive hearing loss, external ear (Acute) Dysphagia (Acute) Chest wall pain (Acute) Low back pain (Acute) Viral URI (Acute) Thyroid disease (Acute) Bilateral hand pain (Acute) Right carpal tunnel syndrome (Acute) Knee pain, left (Acute) COPD exacerbation (Acute) Arthritis of right hand (Acute) Impingement of right ulnar nerve (Acute) Morbid obesity (Acute) Abnormal breast finding (Acute) Dermoid cyst of neck (Acute) Hypothyroidism (Chronic) Microcalcifications of the breast (Acute) Right arm pain (Acute) Neuropathy of left hand (Acute) Neuropathy of right hand (Acute) Urinary incontinence (Acute) Bilateral carpal tunnel syndrome (Acute) Surgical History Fasciotomy, Foot (~1996) LEFT Replacement of total knee joint Bilateral; left-became dywscjet-xhoymjp-whqtilck surgeries Family History Mother Diabetes Personal history of malignant neoplasm LUNG Father Personal history of malignant neoplasm BRAIN Grandfather No problems noted. Grandfather No problems noted. Grandmother No problems noted. Grandmother No problems noted. Social History Smoking/Tobacco Use Status: Former Tobacco Use tobacco type: cigarettes Quit Date: 01/21/21 Second Hand Exposure: Yes Smoking risk assessment performed?: Yes Alcohol Intake: never Drug use: Never Substance use type: does not use Communication Needs: Hard of Hearing and Corrective Lenses Pets and animals: Yes Pets and animals: cat(s) Sexually active: Yes Current gender identity: female What is your relationship status?: never How often do you talk on the phone with friends or family?: decline to answer How often do you get together with friends or relatives?: decline to answer How often do you attend rastafari or hoahaoism services?: decline to answer Do you belong to any clubs or organized social groups?: no Panel score (0-1 are the most socially isolated patients): 0 Seatbelt use: never Do you feel safe at home: Yes Do you feel safe in your relationship?: Yes Exam Narrative Exam Narrative: Physical Examination General: alert, awake, cooperative HEENT: normocephalic, atraumatic; PERRL, EOM intact, conjunctiva normal; no nasal discharge; moist mucous membranes, oral and pharyngeal mucosa normal, tolerating secretions Neck: supple, trachea midline; full ROM Chest: normal to inspection Respiratory: Mild tachypnea, expiratory wheeze bilaterally, speaking in full sentences Cardiac: regular rate, regular rhythm, S1S2 intact, no murmurs rubs or gallops Skin: no lesions, rashes or trauma appreciated Neuro: AAOx3, normal speech, moving all extremities Psych: Appropriate mood and affect Course Vital Signs Vital signs: Vital Signs Pulse Oximetry 98 07/09/23 16:02 Temperature 37.3 C 07/09/23 16:09 Temperature Source Tympanic 07/09/23 16:09 Pulse 78 07/09/23 16:09 Pulse 79 07/09/23 16:10 Respiratory Rate 19 07/09/23 16:10 Respiratory Effort Short of Breath, Labored 07/09/23 16:09 Respiratory Depth Normal 07/09/23 16:09 Blood Pressure 164/73 H 07/09/23 16:09 Blood Pressure Mean 104 07/09/23 16:08 Pulse Oximetry 97 07/09/23 16:10 Oxygen Delivery Method Nasal Cannula 07/09/23 16:09 Oxygen Flow Rate 5 07/09/23 16:09 Pain Level 0 07/09/23 16:09
[2023-07-09] MEDS: Albuterol/Ipratropium 3 ML UPD VIAL 9 ML UPD (16:17)
[2023-07-09] MEDS: Dexamethasone 10 MG/ML VIAL IVP (16:17)
[2023-07-09 16:56] LABS: Abs Immature Grans 0.03 10^3/uL (0.0-0.06); Absolute Basophil Count 0.05 10^3/uL (0.0-0.2); Absolute Lymphocyte Count 2.63 10^3/uL (1.2-3.4); Absolute Monocyte Count 0.83 10^3/uL (0.1-0.8); Absolute Neutrophil Count 5.71 10^3/uL (1.2-6.7); Basophils % 0.5; Eosinophils % 4.1; HCT 39.5 % (36.0-46.0); HGB 12.9 g/dL (11.2-15.7); Immature Grans % 0.3; Lymphocytes % 27.3; MCH 29.7 pg (27.0-33.0); MCHC 32.7 % (32.0-36.0); MCV 91 fL (80-95); MPV 10.3 fL (8.0-11.0); Monocytes % 8.6; Neutrophils % 59.2; Platelet Count 272 10^3/uL (130-400); RBC 4.34 10^6/uL (3.93-5.22); RDW 13.6 % (11.7-14.6); RDW-SD 45.7 fL; WBC 9.65 10^3/uL (4.4-10.8)
[2023-07-09 17:11] LABS: ALT 22 U/L (14-59); AST 19 U/L (15-37); Albumin 2.6 g/dL (3.4-5.0); Alkaline Phosphatase 83 U/L (46-116); Anion Gap 0.4 mmol/L (3-11); BUN 11 mg/dL (7-18); CO2 34.6 mmol/L (21.0-32.0); CREATININE 0.8 mg/dL (0.55-1.02); Chloride 104 mmol/L (98-107); Estimated GFR 80.71 (mL/min/1.73m2); Glucose 105 mg/dL (74-106); Potassium 3.7 mmol/L (3.5-5.1); Sodium 139 mmol/L (136-145)
[2023-07-09 17:24] LABS: COVID-19 PCR Negative (Negative); Influenza A PCR Negative (Negative); Influenza B PCR Negative (Negative); RSV PCR Negative (Negative)
[2023-07-09 17:27] LABS: Source Nasopharynx
--- NOTE | 2023-07-09 17:35 | DI.VRAD_ITS ---
PROCEDURE INFORMATION: Exam: XR Chest Exam date and time: 07/09/2023 17:12 Age: 68 years old Clinical indication: Cough and shortness of breath and other: Copd. Hypoxia TECHNIQUE: Imaging protocol: Radiologic exam of the chest. Views: 2 views. COMPARISON: CR XR PORTABLE CHEST AP 03/30/2022 15:03 FINDINGS: Lungs: Very low lung volumes without definite airspace disease. Pleural spaces: No pleural effusion. No pneumothorax. Heart/Mediastinum: Moderate cardiomegaly with mild vascular congestion, similar to prior. Bones/joints: No acute fracture. IMPRESSION: Moderate cardiomegaly with mild vascular congestion, similar to prior. Dictated and Authenticated by: Vikki Rao MD. Ordering:KATY Valadez MD
[2023-07-09] MEDS: Albuterol 2.5 MG/3 ML INH SOLN VIAL UPD (19:50)
== END 2023-07-09 21:09 | disposition home or self-care (01) ==
PROVIDERS: Emergency Provider Emergency Medicine; PCP Family Medicine
DX: J44.9 Chronic obstructive pulmonary disease, unspecified (principal); I51.7 Cardiomegaly; Z79.82 Long term (current) use of aspirin; Z20.822 Contact with and (suspected) exposure to COVID-19; Z87.891 Personal history of nicotine dependence
CPT/HCPCS: 36415; 80053; 87637; 99283; 71046; 85025; J1100; J7613; J7620

== ENCOUNTER → 2023-07-11 02:05 | Outpatient (CLI) | payer MEDICARE, MEDICAID, SELFPAY ==
--- NOTE | 2023-07-11 07:30 | DI.MAMMO_ITS ---
Exam(s) MAMMO DIAGNOSTIC BI EXAM: MAMMO DIAGNOSTIC BI CLINICAL HISTORY: 3-6 mo f/u,r92.8,z09 TECHNIQUE: Bilateral full field digital CC and MLO mammographic images were obtained with 3D tomosyn thesis and utilizing computer aided detection (CAD). COMPARISON: Available for comparison. FINDINGS: Masses/Architectural Distortion: There are stable bilateral breast nodules. No suspicious nodules or areas of architectural distortion are seen. Microcalcifications: No suspicious pleomorphic-type are seen. Skin Thickening/Nipple Retraction: None. IMPRESSION: 1. No significant interval change with no specific features of malignancy noted. 2. Unless there is more urgent need, screening mammography is recommended, as per [place] [employer] guidelines. 3. Findings were discussed with the patient on the date of the examination. BI-RADS Category 2 - Benign Findings Breast Density - Category B - Scattered areas of fibroglandular density Breast density category C or D implies that the patient has dense breast tissue. Dense breast tissue is very common and is not abnormal but dense breast tissue can make it harder to find cancer on a ma mmogram. Also, dense breast tissue may increase their breast cancer risk. This information about the result of the mammogram report was provided to the patient to raise their awareness. Use this report when you speak with the patient about their risks for breast cancer, which includes their family hist ory. At that time, you may recommend for more screening tests (Ultrasound or MRI) as they might be us eful based on their risk. A negative radiographic report should not delay biopsy if a dominant or clinically suspicious mass is present. Up to ten percent of cancers are not identified on mammography. A negative report may reinforce clinical impression. Adenosis and dense breasts may obscure an underlying neoplasm. False positive reports average 6 to 10%. Patient will receive a letter notifying them of these results.
== END ==
PROVIDERS: PCP Family Medicine; Visit Provider Family Medicine
DX: R92.8 Other abnormal and inconclusive findings on diagnostic imaging of breast (principal); Z09 Encounter for follow-up examination after completed treatment for conditions other than malignant neoplasm
CPT/HCPCS: 77062; 77066; G0279

== ENCOUNTER 2023-07-29 11:22 | Inpatient (IN) | payer MEDICARE, MEDICAID, SELFPAY ==
[2023-07-29] VITALS (31 sets, daily range): BP systolic 110–150; BP diastolic 37–64; PULSE 82–94; RESP 14–29; TEMP 37.2–37.6; O2SAT 92–99
--- NOTE | 2023-07-29 11:15 | RT.EKG_ITS ---
APPROVED REPORT Exam: Resting ECG Reason for Exam: dyspnea Patient Location: E HR:84 bpm ECG Measurements Heart Rate 84 AXIS WY 187 P 57 QRSd 107 QRS 54 QT 404 T 4 QTc 477 Conclusion Sinus rhythm...normal P axis, V-rate 60- 99 Probable inferior infarct, age indeterminate...Q>35mS, T neg, II III aVF
--- NOTE | 2023-07-29 12:15 | ED.GENADUL_ITS ---
Discharge Plan Disposition Patient Disposition: Admit to [facility] Discharge Details Clinical Impression: COVID, Chronic obstructive lung disease, Morbid obesity, DAVID (obstructive sleep apnea) Admit Date/Time: 07/29/23 14:13 Admit Provider: Marek Reyes Attending Provider: Marek Reyes Primary Care Provider: Alphonso Murphy ED Provider: Dionte Rhodes Discharge Data Discharge Date/Time-TO BE ENTERED AT DEPARTURE: 07/29/23 16:35 Medical Decision Making Patient presenting to the emergency department via EMS for chief complaint of shortness of breath. Patient reports that a couple weeks ago she had a cold that then seem to resolve but over the past 3 days she has had significant worsening of symptoms including increased need of oxygen including the need to use her BiPAP to even get out of bed this morning due to shortness of breath malaise and fatigue. Patient went to urgent care who needed to place patient on 5 L of oxygen which she is normally on 3 to simply get her O2 sat above 90%. Patient tested positive for COVID at the clinic. EMS was called and transported patient. She did state that she received 1 albuterol treatment prior to arrival to the emergency department. At my time of assessment patient has moderate work of breathing with tachypnea, audible wheezing with wheezing heard on auscultation but lower lung dubose sound diminished which somewhat could be limited by body habitus given that patient is obese. past medical history of COPD, CHF on chronic oxygen, DAVID, morbid obesity, pulmonary embolism(treated with 325mg ASA). I do have significant concern given patient's past medical history, COVID-positive with increased oxygen demand and even need to use BiPAP to help with breathing this morning at home. Patient does state that she was vaccinated with the first 2 immunizations for COVID but has not received any updates since. Will plan on checking labs, chest x-ray, EKG, will verify COVID with PCR. Pending results will give Decadron remdesivir and DuoNeb along with acetaminophen for slight fever. Patient is not hypotensive or tachycardic and I do not feel that she is septic at this point. Please see physician interpretation for full interpretation of EKG but upon my review patient does not appear to have any significant changes from prior EKGs Reviewed patient's labs and no significant leukocytosis and only abnormality is slightly elevated monocytes. VBG does show high pCO2 of 63 and high bicarb of 37 but patient has not acidotic or alkalotic. CMP does show slightly decreased potassium at 3.3 which will orally replete otherwise labs are similar to patient's previous baseline. ProCalcitonin is less than 0.1 and patient is PCR COVID positive. Portable chest x-ray was attempted but due to patient body habitus x-ray was very poor quality and nondiagnostic. Did reassessed patient and patient did state that she was feeling better after the DuoNeb but I am concerned due to her increased oxygen demand, abnormal use/need of BiPAP for breathing and being COVID-positive with her multiple comorbidities. Patient is agreeable to admission for further treatment of COVID and monitoring of her oxygen demands. Spoke with hospitalist who agreed to accept patient. Imaging Data Radiologic Study: Imaging: X-Ray Radiologist's impression: Exam(s) XR PORTABLE CHEST AP EXAM: XR PORTABLE CHEST AP CLINICAL HISTORY: COVID-positive, cough, shortness of breath TECHNIQUE: 2D digital imaging was performed. COMPARISON: CR,XR XR CHEST 2V PA LATERAL from 07/09/2023 FINDINGS: Extremely limited exam due to under penetration, patient body habitus as well as motion. Leads overlie the chest. The lung bases are obscured by abdominal soft tissues. LUNGS: Upper lobes grossly clear. No pneumothorax. HEART: Partially obscured. AORTA: No gross mediastinal widening. BONES: Mostly obscured. IMPRESSION: Severely limited exam. Upper lobes are grossly clear. HPI General Mode of arrival: EMS . Date/Time Provider Initiated Documentation: 07/29/23 11:39 . Limitations to Documentation: no limitations . Information obtained by: patient and RN notes reviewed . History of Present Illness 68 year old F presents to the emergency department with the chief complaint of Increased shortness of breath and oxygen demand, described as moderate, Patient started experiencing this day(s) (3) and it has been constant. No relieving factors improve symptom(s), No exacerbating factors reported . Patient did receive the following treatments prior to arrival, other (Albuterol at urgent care) Related Data Home Medications Medication Instructions Recorded Confirmed ascorbic acid (vitamin C) 1,000 mg 1,000 mg PO DAILY 11/25/12 07/29/23 tablet inhalational spacing device ##1 12/21/13 07/29/23 (Aerochamber Mini) Bipap 5 l IN DIRECTED 07/23/14 07/29/23 Oxygen 2 l intranasal DIRECTED 12/24/14 07/29/23 aspirin 325 mg tablet 325 mg PO DAILY #0 tab-caps 06/22/15 07/29/23 albuterol sulfate 90 mcg/actuation 1 - 2 puff inhalation Q6H PRN ##1 06/06/20 07/29/23 aerosol inhaler (ProAir HFA) betamethasone, augmented 0.05 % 1 applic topical BID PRN allergic 06/20/21 07/29/23 lotion reaction #60 mL alclometasone 0.05 % topical cream 1 applic topical BID PRN itching 10/16/22 07/29/23 #45 grams ipratropium 0.5 mg-albuterol 3 mg 3 ml inhalation QID COPD 10/16/22 07/29/23 (2.5 mg base)/3 mL nebulization exacerbation/wheezing #180 mL soln ketoconazole 2 % topical cream 1 applic topical BID PRN facial 10/16/22 07/29/23 rash #60 grams levothyroxine 175 mcg tablet 175 mcg PO DAILY #90 tabs 10/16/22 07/29/23 (Levo-T) nystatin 100,000 unit/gram topical 1 applic topical BID PRN 02/08/23 07/29/23 powder intertrigo #30 grams furosemide 40 mg tablet 80 mg (2 x 40 mg) PO DAILY #180 07/13/23 07/29/23 tabs Previous Rx's Medication Instructions Recorded aspirin 325 mg tablet 325 mg PO DAILY #0 tab-caps 06/22/15 albuterol sulfate 90 mcg/actuation 1 - 2 puff inhalation Q6H PRN ##1 06/06/20 aerosol inhaler (ProAir HFA) betamethasone, augmented 0.05 % 1 applic topical BID PRN allergic 06/20/21 lotion reaction #60 mL alclometasone 0.05 % topical cream 1 applic topical BID PRN itching 10/16/22 #45 grams ipratropium 0.5 mg-albuterol 3 mg 3 ml inhalation QID COPD 10/16/22 (2.5 mg base)/3 mL nebulization exacerbation/wheezing #180 mL soln ketoconazole 2 % topical cream 1 applic topical BID PRN facial 10/16/22 rash #60 grams levothyroxine 175 mcg tablet 175 mcg PO DAILY #90 tabs 10/16/22 (Levo-T) nystatin 100,000 unit/gram topical 1 applic topical BID PRN 02/08/23 powder intertrigo #30 grams furosemide 40 mg tablet 80 mg (2 x 40 mg) PO DAILY #180 07/13/23 tabs Allergies Allergy/AdvReac Type Severity Reaction Status Date / Time hydrocodone Allergy Severe ITCHING Verified 07/29/23 11:31 morphine Allergy Mild PRURITIS Verified 07/29/23 11:31 oxycodone Allergy Mild ITCHING Verified 07/29/23 11:31 General Stated Complaint: SOB REUBEN: 3 Review of Systems Constitutional Constitutional: Denies chills, Reports fatigue, Denies fever(s), Denies headache(s), Reports lethargy and Reports malaise ENT Ears, Nose, Mouth, and Throat: Denies headache(s) Cardiovascular Cardiovascular: Denies chest pain, Reports dyspnea, Reports dyspnea on exertion and Reports orthopnea Respiratory Respiratory: Reports chest congestion, Reports cough, Reports dyspnea and Reports dyspnea on exertion Gastrointestinal Gastrointestinal: Denies nausea and Denies vomiting Integumentary/Breasts Skin/Breast: Denies rash Neurologic Neurologic: Denies headache(s) Endocrine Endocrine: Reports fatigue PFSH All Active Problems (Updated 07/29/23 @ 14:43 by Marek Reyes MD) Acute on chronic respiratory failure with hypoxia (Acute) COVID (Acute) COPD (chronic obstructive pulmonary disease) (Chronic) Venous stasis dermatitis (Acute) Lymphedema (Acute) Chronic obstructive lung disease (Chronic) Quit smoking 2010. PFTs 09/2012 showed an FEV1 of 60% with improvement to 80% with bronchodilator, thought to be severe restrictive disease. Depressive disorder (Chronic) Insomnia with sleep apnea (Chronic) Obstructive sleep apnea syndrome (Chronic) Chronic headaches (Chronic) Recent Neurology consult for possible papilledema. Urinary incontinence (Chronic) On Detrol Recurrent UTI (Chronic) History of Surgical Procedure (Chronic) a. Right and left toal knee replacements. b. Left knee has been repeatedly operated on with slava surgies, three replacements. 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) Knee pain, bilateral (Chronic 07/23/14) s/p bilat TKR (left infected with mult surg and decreased mobility) Morbid obesity (Acute 04/05/13) Sensorineural hearing loss, bilateral (Chronic 08/29/13) DVT prophylaxis (Acute) Advance directive on file (Acute) Low back pain with sciatica (Chronic 05/03/14) CT at [facility] L34 spinal stenosis Varicose veins of lower extremity (Chronic) Depression (Chronic) Grief at loss of child (Acute) Chronic respiratory failure with hypoxia and hypercapnia (Chronic) Status post total bilateral knee replacement (Acute) Pleural effusion on right (Acute 05/03/14) History of fasciotomy (Acute) Chest pain (Acute 07/23/14) Chronic obstructive pulmonary disease (Chronic) Wrist pain, right (Acute) Allergic conjunctivitis (Acute) Sprain of scapholunate ligament (Acute 03/21/19) COPD exacerbation (Acute) Community acquired pneumonia (Acute) DAVID (obstructive sleep apnea) (Chronic) Hyperglycemia (Acute) Allergic sinusitis (Acute) Mixed conductive and sensorineural hearing loss of both ears (Acute) Thyroid enlargement (Acute) S/p thyroidectomy 2020 Fever (Acute) Cellulitis of leg, right (Acute) Ulcer of right lower extremity (Acute) Bronchitis (Acute) Impacted cerumen, left ear (Acute) Conductive hearing loss, external ear (Acute) Dysphagia (Acute) Chest wall pain (Acute) Low back pain (Acute) Viral URI (Acute) Thyroid disease (Acute) Bilateral hand pain (Acute) Right carpal tunnel syndrome (Acute) Knee pain, left (Acute) COPD exacerbation (Acute) Arthritis of right hand (Acute) Impingement of right ulnar nerve (Acute) Morbid obesity (Acute) Abnormal breast finding (Acute) Dermoid cyst of neck (Acute) Hypothyroidism (Chronic) Microcalcifications of the breast (Acute) Right arm pain (Acute) Neuropathy of left hand (Acute) Neuropathy of right hand (Acute) Urinary incontinence (Acute) Bilateral carpal tunnel syndrome (Acute) Surgical History Replacement of total knee joint Bilateral; left-became [id number] surgeries Fasciotomy, Foot (~1996) LEFT Family History Mother Diabetes Personal history of malignant neoplasm LUNG Father Personal history of malignant neoplasm BRAIN Grandfather No problems noted. Grandfather No problems noted. Grandmother No problems noted. Grandmother No problems noted. Social History Smoking/Tobacco Use Status: Former Tobacco Use tobacco type: cigarettes Quit Date: 01/21/21 Second Hand Exposure: Yes Smoking risk assessment performed?: Yes Alcohol Intake: never Drug use: Never Substance use type: does not use Housing: apartment Communication Needs: Hard of Hearing and Corrective Lenses Pets and animals: Yes Pets and animals: cat(s) Sexually active: Yes Current gender identity: female What is your relationship status?: never How often do you talk on the phone with friends or family?: decline to answer How often do you get together with friends or relatives?: decline to answer How often do you attend mosque or jain services?: decline to answer Do you belong to any clubs or organized social groups?: no Panel score (0-1 are the most socially isolated patients): 0 Seatbelt use: never Do you feel safe at home: Yes Do you feel safe in your relationship?: Yes Exam Const Nutritional Appearance: obese Orientation: alert, awake and oriented x3 Limitations: mental status not altered HENMT Head: normal to inspection Ears: hearing grossly normal bilaterally Face and sinus: normal facial exam Resp Effort & Inspection: able to speak in complete sentences, audible wheezes, cough Quality of cough: dry, labored and tachypneic Auscultation: diminished lung sounds bilaterally in the lower lung dubose and wheezes expiratory wheezes Cardio Rate: regular rate Rhythm: regular rhythm Heart Sounds: S1 normal and S2 normal Neuro General: patient alert, patient awake, tone normal, moves all extremities and no focal motor deficits Course Vital Signs Vital signs: Vital Signs Temperature 37.6 C H 07/29/23 11:25 Pulse 88 07/29/23 11:25 Respiratory Rate 26 H 07/29/23 11:25 Blood Pressure 150/63 H 07/29/23 11:25 Pulse Oximetry 98 07/29/23 11:25 Temperature 37.6 C H 07/29/23 11:25 Temperature Source Skin 07/29/23 11:25 Pulse 88 07/29/23 11:25 Respiratory Rate 26 H 07/29/23 11:25 Blood Pressure 150/63 H 12/15/23 11:25 Blood Pressure Position Supine 07/29/23 11:25 Pulse Oximetry 98 07/29/23 11:25 Oxygen Delivery Method OxyMask 07/29/23 11:25 Oxygen Flow Rate 6 07/29/23 11:25 Pain Level 2 07/29/23 11:25 Lab/Test Results Lab/Test Results: 07/29/23 11:55 Blood Blood Culture - Pending 07/29/23 11:55 Blood Blood Culture - Pending
[2023-07-29] MEDS: Dexamethasone 10 MG/ML VIAL IVP (12:16)
[2023-07-29] MEDS: Albuterol/Ipratropium 3 ML UPD VIAL UPD (12:19)
[2023-07-29 12:24] LABS: Lactate 1.3 mmol/L (0.6-1.4)
[2023-07-29 12:25] LABS: BE (Venous) 11 mmol/L (-2-3); HCO3 (Venous) 37 mmol/L (23-28); O2 Sat (Venous) 74 %; TCO2 (Venous) 33 mmol/L (24-29); pH (Venous) 7.37 (7.31-7.41); pO2 (Venous) 40 mmHg
[2023-07-29 12:27] LABS: pCO2 (Venous) 63 mmHg (41-51)
[2023-07-29 12:30] LABS: Abs Immature Grans 0.04 10^3/uL (0.0-0.06); Absolute Basophil Count 0.04 10^3/uL (0.0-0.2); Absolute Eosinophil Count 0.33 10^3/uL (0.0-0.7); Absolute Lymphocyte Count 2.32 10^3/uL (1.2-3.4); Absolute Monocyte Count 1.06 10^3/uL (0.1-0.8); Absolute Neutrophil Count 6.01 10^3/uL (1.2-6.7); Basophils % 0.4; Eosinophils % 3.4; HCT 41.1 % (36.0-46.0); HGB 13.6 g/dL (11.2-15.7); Immature Grans % 0.4; Lymphocytes % 23.7; MCH 29.4 pg (27.0-33.0); MCHC 33.1 % (32.0-36.0); MCV 89 fL (80-95); MPV 10.2 fL (8.0-11.0); Monocytes % 10.8; Neutrophils % 61.3; Platelet Count 242 10^3/uL (130-400); RBC 4.62 10^6/uL (3.93-5.22); RDW 13.5 % (11.7-14.6); RDW-SD 43.8 fL
[2023-07-29 12:53] LABS: ALT 24 U/L (14-59); AST 23 U/L (15-37); Albumin 2.8 g/dL (3.4-5.0); Alkaline Phosphatase 85 U/L (46-116); Anion Gap 2.7 mmol/L (3-11); BUN 12 mg/dL (7-18); Bilirubin, Total 1.4 mg/dL (0.2-1.0); CO2 37.3 mmol/L (21.0-32.0); CREATININE 0.7 mg/dL (0.55-1.02); Calcium 8.5 mg/dL (8.5-10.1); Chloride 98 mmol/L (98-107); Estimated GFR 94.73 (mL/min/1.73m2); Glucose 112 mg/dL (74-106); Magnesium 1.8 mg/dL (1.8-2.4); NT-proBNP 109 pg/mL (<300); Potassium 3.3 mmol/L (3.5-5.1); Sodium 138 mmol/L (136-145); Total Protein 7.5 g/dL (6.4-8.2)
[2023-07-29 13:22] LABS: Procalcitonin < 0.1 ng/mL
--- NOTE | 2023-07-29 13:22 | DI.RAD_ITS ---
Exam(s) XR PORTABLE CHEST AP EXAM: XR PORTABLE CHEST AP CLINICAL HISTORY: COVID-positive, cough, shortness of breath TECHNIQUE: 2D digital imaging was performed. COMPARISON: CR,XR XR CHEST 2V PA LATERAL from 07/09/2023 FINDINGS: Extremely limited exam due to under penetration, patient body habitus as well as motion. Leads over lie the chest. The lung bases are obscured by abdominal soft tissues. LUNGS: Upper lobes grossly clear. No pneumothorax. HEART: Partially obscured. AORTA: No gross mediastinal widening. BONES: Mostly obscured. IMPRESSION: Severely limited exam. Upper lobes are grossly clear. DATA REPOSITORY: RADIATION DOSE DELIVERED:
[2023-07-29 13:42] LABS: Influenza A PCR Negative (Negative); Influenza B PCR Negative (Negative); RSV PCR Negative (Negative)
[2023-07-29 13:51] LABS: COVID-19 PCR Positive (Negative)
[2023-07-29] MEDS: Acetaminophen 325 MG TAB 650 MG PO (13:57)
[2023-07-29] MEDS: POTASSIUM CHLORIDE 20 MEQ, POTASSIUM CHLORIDE 10 MEQ 30 MEQ PO (13:57)
--- NOTE | 2023-07-29 14:13 | HPE_ITS ---
Date of service: 07/29/23 Time of Service: 14:36 Assessment and Plan Assessment and plan (1) COVID: Status: Acute Assessment and plan: - Patient tested COVID-positive at urgent care prior to arrival in the emergency department -Is likely cause of patient's acute on chronic hypoxic respiratory failure -Status post initial dose dexamethasone and remdesivir in the emergency department, will continue during hospitalization -Will continue supplemental oxygen with goal 88 to 92% as patient does have history of hypercapnia (2) Acute on chronic respiratory failure with hypoxia: Status: Acute Assessment and plan: - Secondary to COVID-19 as noted above (3) Lymphedema: Status: Acute Assessment and plan: - Will continue home Lasix (4) Chronic obstructive lung disease: Status: Chronic Assessment and plan: - Continue as needed albuterol and DuoNeb treatments (5) Obstructive sleep apnea syndrome: Status: Chronic Assessment and plan: - Continue at bedtime BiPAP (6) Morbid obesity: Status: Acute Assessment and plan: - Recommend ongoing weight loss discussions with PCP History of Present Illness History of Present Illness Chief Complaint: SOB Narrative: 68-year-old female with a past medical history of COPD, chronic hypoxic respiratory failure on 2 L nasal cannula, obstructive sleep apnea, morbid obesity, presents emergency department with complaints of shortness of breath. Patient states that over the last 3 days she has had worsening symptoms of shortness of breath and feeling like she had a cold, stating that she even needed to use her BiPAP machine to get out of bed this morning due to shortness of breath and fatigue. She initially presented to urgent care where she was on 5 L nasal cannula which is increased from her usual 3 L. While at urgent care she tested positive for COVID-19 and EMS was called to transport the patient to the hospital. She denies any headache, lightheadedness, dizziness, chest pain, sputum production, nausea vomiting or diarrhea. In the emergency department the patient was noted as requiring 5 L OxyMask to maintain oxygen saturation greater than 90%. She was also initially tachypneic but this improved after DuoNeb treatment. CBC and CMP were unremarkable however VBG did show pCO2 of 63 with an increased bicarb of 37. Additionally, chest x- ray was limited due to body habitus but was able to state that upper lobes are grossly clear. On the emergency department the patient received dexamethasone and remdesivir, which time emergency room [employer] paged hospitalist for admission for patient with COVID-19 pneumonia and acute on chronic hypoxic respiratory failure. Review of Systems All systems reviewed & are unremarkable except as noted in HPI and below PFSH All Active Problems (Updated 07/29/23 @ 14:43 by Marek Reyes MD) Acute on chronic respiratory failure with hypoxia (Acute) COVID (Acute) COPD (chronic obstructive pulmonary disease) (Chronic) Venous stasis dermatitis (Acute) Lymphedema (Acute) Chronic obstructive lung disease (Chronic) Quit smoking 2010. PFTs 09/2012 showed an FEV1 of 60% with improvement to 80% with bronchodilator, thought to be severe restrictive disease. Depressive disorder (Chronic) Insomnia with sleep apnea (Chronic) Obstructive sleep apnea syndrome (Chronic) Chronic headaches (Chronic) Recent Neurology consult for possible papilledema. Urinary incontinence (Chronic) On Detrol Recurrent UTI (Chronic) History of Surgical Procedure (Chronic) a. Right and left toal knee replacements. b. Left knee has been repeatedly operated on with slava surgies, three replacements. 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) Knee pain, bilateral (Chronic 07/23/14) s/p bilat TKR (left infected with mult surg and decreased mobility) Morbid obesity (Acute 04/05/13) Sensorineural hearing loss, bilateral (Chronic 08/29/13) DVT prophylaxis (Acute) Advance directive on file (Acute) Low back pain with sciatica (Chronic 05/03/14) [place] [facility] [place] Varicose veins of lower extremity (Chronic) Depression (Chronic) Grief at loss of child (Acute) Chronic respiratory failure with hypoxia and hypercapnia (Chronic) Status post total bilateral knee replacement (Acute) Pleural effusion on right (Acute 05/03/14) History of fasciotomy (Acute) Chest pain (Acute 07/23/14) Chronic obstructive pulmonary disease (Chronic) Wrist pain, right (Acute) Allergic conjunctivitis (Acute) Sprain of scapholunate ligament (Acute 03/21/19) COPD exacerbation (Acute) Community acquired pneumonia (Acute) DAVID (obstructive sleep apnea) (Chronic) Hyperglycemia (Acute) Allergic sinusitis (Acute) Mixed conductive and sensorineural hearing loss of both ears (Acute) Thyroid enlargement (Acute) S/p thyroidectomy 2020 Fever (Acute) Cellulitis of leg, right (Acute) Ulcer of right lower extremity (Acute) Bronchitis (Acute) Impacted cerumen, left ear (Acute) Conductive hearing loss, external ear (Acute) Dysphagia (Acute) Chest wall pain (Acute) Low back pain (Acute) Viral URI (Acute) Thyroid disease (Acute) Bilateral hand pain (Acute) Right carpal tunnel syndrome (Acute) Knee pain, left (Acute) COPD exacerbation (Acute) Arthritis of right hand (Acute) Impingement of right ulnar nerve (Acute) Morbid obesity (Acute) Abnormal breast finding (Acute) Dermoid cyst of neck (Acute) Hypothyroidism (Chronic) Microcalcifications of the breast (Acute) Right arm pain (Acute) Neuropathy of left hand (Acute) Neuropathy of right hand (Acute) Urinary incontinence (Acute) Bilateral carpal tunnel syndrome (Acute) Surgical History Replacement of total knee joint Bilateral; left-became [id number]-dxgiwfch surgeries Fasciotomy, Foot (~1996) LEFT Family History Mother Diabetes Personal history of malignant neoplasm LUNG Father Personal history of malignant neoplasm BRAIN Grandfather No problems noted. Grandfather No problems noted. Grandmother No problems noted. Grandmother No problems noted. Social History Smoking/Tobacco Use Status: Former Tobacco Use tobacco type: cigarettes Quit Date: 01/21/21 Second Hand Exposure: Yes Smoking risk assessment performed?: Yes Alcohol Intake: never Drug use: Never Substance use type: does not use Housing: apartment Communication Needs: Hard of Hearing and Corrective Lenses Pets and animals: Yes Pets and animals: cat(s) Sexually active: Yes Current gender identity: female What is your relationship status?: never How often do you talk on the phone with friends or family?: decline to answer How often do you get together with friends or relatives?: decline to answer How often do you attend orthodoxy or religion services?: decline to answer Do you belong to any clubs or organized social groups?: no Panel score (0-1 are the most socially isolated patients): 0 Seatbelt use: never Do you feel safe at home: Yes Do you feel safe in your relationship?: Yes Meds Allergies and Home Medications Allergies Allergy/AdvReac Type Severity Reaction Status Date / Time hydrocodone Allergy Severe ITCHING Verified 07/29/23 11:31 morphine Allergy Mild PRURITIS Verified 07/29/23 11:31 oxycodone Allergy Mild ITCHING Verified 07/29/23 11:31 Home Medications Medication Instructions Recorded Confirmed Type ascorbic acid (vitamin C) 1,000 mg 1,000 mg PO DAILY 11/25/12 07/29/23 History tablet inhalational spacing device ##1 12/21/13 07/29/23 History (Aerochamber Mini) Bipap 5 l IN DIRECTED 07/23/14 07/29/23 History Oxygen 2 l intranasal DIRECTED 12/24/14 07/29/23 History aspirin 325 mg tablet 325 mg PO DAILY #0 tab-caps 06/22/15 07/29/23 Rx albuterol sulfate 90 mcg/actuation 1 - 2 puff inhalation Q6H PRN ##1 06/06/20 07/29/23 Rx aerosol inhaler (ProAir HFA) betamethasone, augmented 0.05 % 1 applic topical BID PRN allergic 06/20/21 07/29/23 Rx lotion reaction #60 mL alclometasone 0.05 % topical cream 1 applic topical BID PRN itching 10/16/22 07/29/23 Rx #45 grams ipratropium 0.5 mg-albuterol 3 mg 3 ml inhalation QID COPD 10/16/22 07/29/23 Rx (2.5 mg base)/3 mL nebulization exacerbation/wheezing #180 mL soln ketoconazole 2 % topical cream 1 applic topical BID PRN facial 10/16/22 07/29/23 Rx rash #60 grams levothyroxine 175 mcg tablet 175 mcg PO DAILY #90 tabs 10/16/22 07/29/23 Rx (Levo-T) nystatin 100,000 unit/gram topical 1 applic topical BID PRN 02/08/23 07/29/23 Rx powder intertrigo #30 grams furosemide 40 mg tablet 80 mg (2 x 40 mg) PO DAILY #180 07/13/23 07/29/23 Rx tabs Exam Narrative Exam Narrative: Well-appearing, older morbidly obese female sitting up at the edge of the bed in minimal respiratory distress, ANO x 4, [address] nasal cannula in place, heart regular rate rhythm, lungs with end expiratory wheezing and diminished in bilateral bases, abdomen soft, nontender nondistended Results Labs 07/29/23 12:15 07/29/23 12:15 Labs: Laboratory Results - last 24 hr 07/29/23 07/29/23 12:15 12:20 WBC 9.80 RBC 4.62 Hgb 13.6 Hct 41.1 MCV 89 MCH 29.4 MCHC 33.1 RDW 13.5 Plt Count 242 MPV 10.2 Immature Gran % 0.4 Neutrophils % 61.3 Lymphocytes % 23.7 Monocytes % 10.8 Eosinophils % 3.4 Basophils % 0.4 Nucleated RBC % 0.0 Absolute Neutrophils 6.01 Absolute Lymphocytes 2.32 Absolute Monocytes 1.06 H Absolute Eosinophils 0.33 Absolute Basophils 0.04 VBG pH 7.37 VBG pCO2 63 H* VBG pO2 40 VBG HCO3 37 H VBG Total CO2 33 H VBG O2 Saturation 74 VBG Base Excess 11 H VBG Lactate 1.3 Sodium 138 Potassium 3.3 L Chloride 98 Carbon Dioxide 37.3 H Anion Gap 2.7 L BUN 12 Creatinine 0.7 Est GFR (CKD-EPI 2020) 94.73 Glucose 112 H Calcium 8.5 Magnesium 1.8 Total Bilirubin 1.4 H AST 23 ALT 24 Alkaline Phosphatase 85 NT-Pro-B Natriuret Pep 109 Total Protein 7.5 Albumin 2.8 L Procalcitonin < 0.1 COVID-19 Source Not Applicable SARS-CoV-2 (PCR) Positive A Influenza Type A (PCR) Negative Influenza Type B (PCR) Negative RSV (PCR) Negative Last Vital Signs Temp 99.7 F H 07/29/23 11:25 Pulse 88 07/29/23 11:25 Resp 26 H 07/29/23 11:25 BP 150/63 H 07/29/23 11:25 Pulse Ox 98 07/29/23 11:25 Time Spent Time spent with Patient: >75 minutes Time was spent: preparing to see the patient(eg.review tests), obtaining and/or reviewing separately otained hiistory, ordering medications,tests, procedures, referring, communicating with other health day care assistant, indepentently interpreting results, counseling the patient and care coordination
[2023-07-29] MEDS: REMDESIVIR 200 MG in Normal Saline 250 ML 250 MG IVPB (14:24)
[2023-07-29] MEDS: Enoxaparin 40 MG/0.4 ML SYR SC (18:05)
--- NOTE | 2023-07-29 20:36 | RESPIRATORY ---
RT spoke with patient concerning who her DME is for her Bipap along with her oxygen. The patient stated she uses 3L at day and 5L at night bled into her Bipap. The bipap is a LomographyStation AutoBipap with settings of 25/17, this device was part of the recall but has been repaired/replaced.
[2023-07-29] MEDS: Ipratropium/Albuterol 4 GM 120 PUFF INH IH (20:57)
[2023-07-29] MEDS: Normal Saline Flush 10 ML SYR IVP (21:06)
[2023-07-29] MEDS: Miconazole 2% Topical Powder 85 GM BTL TP (21:06)
[2023-07-30] VITALS (8 sets, daily range): BP systolic 115–147; BP diastolic 57–76; PULSE 69–79; RESP 16–17; TEMP 36–36.8; O2SAT 91–94
[2023-07-30] MEDS: Levothyroxine 175 MCG TAB PO (07:04)
[2023-07-30 08:55] LABS: HCT 42.9 % (36.0-46.0); HGB 14.3 g/dL (11.2-15.7); MCH 29.4 pg (27.0-33.0); MCHC 33.3 % (32.0-36.0); MCV 88 fL (80-95); MPV 10.6 fL (8.0-11.0); Platelet Count 261 10^3/uL (130-400); RBC 4.87 10^6/uL (3.93-5.22); RDW 13.3 % (11.7-14.6); RDW-SD 43.1 fL
--- NOTE | 2023-07-30 09:04 | PGE_ITS ---
Date of Service Date of service: 07/30/23 Time of Service: 09:04 Assessment and Plan Assessment and plan (1) COVID: Status: Acute Assessment and plan: - Patient tested COVID-positive at urgent care prior to arrival in the emergency department -Is likely cause of patient's acute on chronic hypoxic respiratory failure -Status post initial dose dexamethasone and remdesivir in the emergency department, will continue during hospitalization -Will continue supplemental oxygen with goal 88 to 92% as patient does have history of hypercapnia; currently on baseline 3 L nasal cannula (2) Acute on chronic respiratory failure with hypoxia: Status: Acute Assessment and plan: - Secondary to COVID-19 as noted above (3) Lymphedema: Status: Acute Assessment and plan: - Will continue home Lasix (4) Chronic obstructive lung disease: Status: Chronic Assessment and plan: - Continue as needed albuterol and DuoNeb treatments (5) Obstructive sleep apnea syndrome: Status: Chronic Assessment and plan: - Continue at bedtime BiPAP (6) Morbid obesity: Status: Acute Assessment and plan: - Recommend ongoing weight loss discussions with PCP Subjective Subjective Interval history since last seen: Patient states that she is feeling a little better today as compared to yesterday, but she would like an updraft breathing treatment. Otherwise she has no other complaints or concerns at this time. Exam Narrative Exam Narrative: Well-appearing, older morbidly obese female sitting up at the edge of the bed in minimal respiratory distress, ANO x 4, 3 [address] nasal cannula in place, heart regular rate rhythm, lungs with end expiratory wheezing and diminished in bilateral bases, abdomen soft, nontender nondistended Objective Last Vital Signs Temp 97.3 F L 07/30/23 08:18 Pulse 71 07/30/23 08:18 Resp 16 07/30/23 08:18 BP 124/57 L 07/30/23 08:18 Pulse Ox 94 07/30/23 08:18 Laboratory Results - last 24 hr 07/29/23 07/29/23 07/30/23 12:15 12:20 08:40 WBC 9.80 6.50 RBC 4.62 4.87 Hgb 13.6 14.3 Hct 41.1 42.9 MCV 89 88 MCH 29.4 29.4 MCHC 33.1 33.3 RDW 13.5 13.3 Plt Count 242 261 MPV 10.2 10.6 Immature Gran % 0.4 Neutrophils % 61.3 Lymphocytes % 23.7 Monocytes % 10.8 Eosinophils % 3.4 Basophils % 0.4 Nucleated RBC % 0.0 Absolute Neutrophils 6.01 Absolute Lymphocytes 2.32 Absolute Monocytes 1.06 H Absolute Eosinophils 0.33 Absolute Basophils 0.04 VBG pH 7.37 VBG pCO2 63 H* VBG pO2 40 VBG HCO3 37 H VBG Total CO2 33 H VBG O2 Saturation 74 VBG Base Excess 11 H VBG Lactate 1.3 Sodium 138 Potassium 3.3 L Chloride 98 Carbon Dioxide 37.3 H Anion Gap 2.7 L BUN 12 Creatinine 0.7 Est GFR (CKD-EPI 2020) 94.73 Glucose 112 H Calcium 8.5 Magnesium 1.8 Total Bilirubin 1.4 H AST 23 ALT 24 Alkaline Phosphatase 85 NT-Pro-B Natriuret Pep 109 Total Protein 7.5 Albumin 2.8 L Procalcitonin < 0.1 COVID-19 Source Not Applicable SARS-CoV-2 (PCR) Positive A Influenza Type A (PCR) Negative Influenza Type B (PCR) Negative RSV (PCR) Negative Time Spent with Patient Time Spent with Patient: >50 minutes Time was spent: preparing to see the patient(eg.review tests), obtaining and/or reviewing separately otained hiistory, ordering medications,tests, procedures, referring, communicating with other health student career development specialist, indepentently interpreting results, counseling the patient and care coordination
[2023-07-30 09:25] LABS: Anion Gap 5.4 mmol/L (3-11); BUN 12 mg/dL (7-18); CO2 33.6 mmol/L (21.0-32.0); CREATININE 0.9 mg/dL (0.55-1.02); Calcium 8.8 mg/dL (8.5-10.1); Chloride 99 mmol/L (98-107); Estimated GFR 70.07 (mL/min/1.73m2); Glucose 121 mg/dL (74-106); Magnesium 2.1 mg/dL (1.8-2.4); Potassium 3.7 mmol/L (3.5-5.1); Sodium 138 mmol/L (136-145)
[2023-07-30] MEDS: Furosemide 40 MG TAB 80 MG PO (09:47)
[2023-07-30] MEDS: Normal Saline Flush 10 ML SYR IVP ×2 (09:58→13:24)
[2023-07-30] MEDS: Ipratropium/Albuterol 4 GM 120 PUFF INH IH (10:24)
[2023-07-30] MEDS: Dexamethasone 10 MG/ML VIAL 6 MG IVP (13:24)
[2023-07-30] MEDS: REMDESIVIR 100 MG in Normal Saline 250 ML 250 MG IVPB (13:27)
--- NOTE | 2023-07-30 15:36 | PDOC.CMIN ---
Date of service: 07/30/23 Time of Service: 15:37 Care Management Initial Assmt Initial Assessment REASON FOR HOSPITALIZATION:: COVID-19 PNA, acute on chronic respiratory failure PREVIOUS FUNCTIONAL STATUS/SOCIAL/FAMILY SUPPORTS:: [facility] with significant otherGalo CURRENT FUNCTIONAL STATUS:: On COVID-19 precautions, Radha remains short of breath, but pleasant in interaction-no concerns shared at this time. ADVANCE DIRECTIVES:: On file; Gill Forman as agent Has patient been provided with info about the portal/API?: No Did the patient sign up for the portal?: No CODE STATUS:: Full Code INSURANCE COVERAGE / FINANCIAL ISSUES:: [facility] MCR, SIM CURRENT HOME/COMMUNITY SERVICES/EQUIPMENT:: Hospital bed, bedside commode, ramp, motorized wheelchair, BIPAP PRIMARY CARE PHYSICIAN:: Alphonso Murphy POTENTIAL DISCHARGE NEEDS:: Follow up appointments PATIENT/FAMILY EDUCATION NEEDS:: Review discharge instructions, discuss Ask Me Three. ANTICIPATED BARRIERS TO DISCHARGE:: None identified. TRANSPORTATION:: RCT W/C Van. PLAN:: Radha continues to be closely monitored, CM continues to follow. PFSH All Active Problems (Updated 07/29/23 @ 14:43 by Marek Reyes MD) Acute on chronic respiratory failure with hypoxia (Acute) COVID (Acute) COPD (chronic obstructive pulmonary disease) (Chronic) Venous stasis dermatitis (Acute) Lymphedema (Acute) Chronic obstructive lung disease (Chronic) Quit smoking 2010. PFTs 09/2012 showed an FEV1 of 60% with improvement to 80% with bronchodilator, thought to be severe restrictive disease. Depressive disorder (Chronic) Insomnia with sleep apnea (Chronic) Obstructive sleep apnea syndrome (Chronic) Chronic headaches (Chronic) Recent Neurology consult for possible papilledema. Urinary incontinence (Chronic) On Detrol Recurrent UTI (Chronic) History of Surgical Procedure (Chronic) a. Right and left toal knee replacements. b. Left knee has been repeatedly operated on with slava surgies, three replacements. 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) Knee pain, bilateral (Chronic 07/23/14) s/p bilat TKR (left infected with mult surg and decreased mobility) Morbid obesity (Acute 04/05/13) Sensorineural hearing loss, bilateral (Chronic 08/29/13) DVT prophylaxis (Acute) Advance directive on file (Acute) Low back pain with sciatica (Chronic 05/03/14) CT [place] [facility] [place] L[place] stenosis Varicose veins of lower extremity (Chronic) Depression (Chronic) Grief at loss of child (Acute) Chronic respiratory failure with hypoxia and hypercapnia (Chronic) Status post total bilateral knee replacement (Acute) Pleural effusion on right (Acute 05/03/14) History of fasciotomy (Acute) Chest pain (Acute 07/23/14) Chronic obstructive pulmonary disease (Chronic) Wrist pain, right (Acute) Allergic conjunctivitis (Acute) Sprain of scapholunate ligament (Acute 03/21/19) COPD exacerbation (Acute) Community acquired pneumonia (Acute) DAVID (obstructive sleep apnea) (Chronic) Hyperglycemia (Acute) Allergic sinusitis (Acute) Mixed conductive and sensorineural hearing loss of both ears (Acute) Thyroid enlargement (Acute) S/p thyroidectomy 2020 Fever (Acute) Cellulitis of leg, right (Acute) Ulcer of right lower extremity (Acute) Bronchitis (Acute) Impacted cerumen, left ear (Acute) Conductive hearing loss, external ear (Acute) Dysphagia (Acute) Chest wall pain (Acute) Low back pain (Acute) Viral URI (Acute) Thyroid disease (Acute) Bilateral hand pain (Acute) Right carpal tunnel syndrome (Acute) Knee pain, left (Acute) COPD exacerbation (Acute) Arthritis of right hand (Acute) Impingement of right ulnar nerve (Acute) Morbid obesity (Acute) Abnormal breast finding (Acute) Dermoid cyst of neck (Acute) Hypothyroidism (Chronic) Microcalcifications of the breast (Acute) Right arm pain (Acute) Neuropathy of left hand (Acute) Neuropathy of right hand (Acute) Urinary incontinence (Acute) Bilateral carpal tunnel syndrome (Acute) Surgical History Replacement of total knee joint Bilateral; left-became ygnlsfug-tbodylg-htiwrozg surgeries Fasciotomy, Foot (~1996) LEFT Family History Mother Diabetes Personal history of malignant neoplasm LUNG Father Personal history of malignant neoplasm BRAIN Grandfather No problems noted. Grandfather No problems noted. Grandmother No problems noted. Grandmother No problems noted. Social History (Reviewed 07/29/23 @ 12:18 by KAITY Dee Smoking/Tobacco Use Status: Former Tobacco Use tobacco type: cigarettes Quit Date: 01/21/21 Second Hand Exposure: Yes Smoking risk assessment performed?: Yes Alcohol Intake: never Drug use: Never Substance use type: does not use Housing: apartment Communication Needs: Hard of Hearing and Corrective Lenses Pets and animals: Yes Pets and animals: cat(s) Sexually active: Yes Current gender identity: female What is your relationship status?: never How often do you talk on the phone with friends or family?: decline to answer How often do you get together with friends or relatives?: decline to answer How often do you attend judaism or sabianist services?: decline to answer Do you belong to any clubs or organized social groups?: no Panel score (0-1 are the most socially isolated patients): 0 Seatbelt use: never Do you feel safe at home: Yes Do you feel safe in your relationship?: Yes
[2023-07-30] MEDS: Enoxaparin 40 MG/0.4 ML SYR SC (18:34)
[2023-07-31] VITALS (7 sets, daily range): BP systolic 114–139; BP diastolic 51–78; PULSE 51–89; RESP 16–25; TEMP 36.1–37.1; O2SAT 90–96
[2023-07-31] MEDS: Ipratropium/Albuterol 4 GM 120 PUFF INH IH ×3 (01:05→09:55)
[2023-07-31] MEDS: Levothyroxine 175 MCG TAB PO (06:30)
[2023-07-31 07:19] LABS: Abs Immature Grans 0.02 10^3/uL (0.0-0.06); Absolute Basophil Count 0.01 10^3/uL (0.0-0.2); Absolute Monocyte Count 0.64 10^3/uL (0.1-0.8); Absolute Neutrophil Count 6.69 10^3/uL (1.2-6.7); Basophils % 0.1; HCT 39.8 % (36.0-46.0); HGB 13.2 g/dL (11.2-15.7); Immature Grans % 0.2; Lymphocytes % 18.8; MCH 29.3 pg (27.0-33.0); MCHC 33.2 % (32.0-36.0); MCV 88 fL (80-95); MPV 10.8 fL (8.0-11.0); Monocytes % 7.1; Neutrophils % 73.8; Platelet Count 275 10^3/uL (130-400); RDW 13.5 % (11.7-14.6); RDW-SD 44.1 fL; WBC 9.06 10^3/uL (4.4-10.8)
--- NOTE | 2023-07-31 09:55 | W.PM.PROGNOT ---
Date of Service Date of service: 07/31/23 Time of Service: 09:55 Assessment and Plan Assessment and plan (1) COVID: Status: Acute Assessment and plan: - Patient tested COVID-positive at urgent care prior to arrival in the emergency department -Is likely cause of patient's acute on chronic hypoxic respiratory failure -Status post initial dose dexamethasone and remdesivir in the emergency department, will continue during hospitalization -Will continue supplemental oxygen with goal 88 to 92% as patient does have history of hypercapnia; currently on baseline 3 L nasal cannula (2) Acute on chronic respiratory failure with hypoxia: Status: Acute Assessment and plan: - Secondary to COVID-19 as noted above (3) Lymphedema: Status: Acute Assessment and plan: - Will continue home Lasix (4) Chronic obstructive lung disease: Status: Chronic Assessment and plan: - Continue as needed albuterol and DuoNeb treatments (5) Obstructive sleep apnea syndrome: Status: Chronic Assessment and plan: - Continue at bedtime BiPAP (6) Morbid obesity: Status: Acute Assessment and plan: - Recommend ongoing weight loss discussions with PCP Subjective Subjective Interval history since last seen: Patient states that she is feeling a little better today though she did have a spell of sudden shortness of breath this morning and was discouraged that she was told she cannot get an updraft. Otherwise she is agreeable with the plan that if we are able to provide updrafts throughout the day today that she would likely improve enough to be able to go home tomorrow 08/01/2023. Exam Narrative Exam Narrative: Well-appearing, older morbidly obese female sitting up at the edge of the bed in minimal respiratory distress, ANO x 4, [address] place, heart regular rate rhythm, lungs with end expiratory wheezing and diminished in bilateral bases, abdomen soft, nontender nondistended Objective Last Vital Signs Temp 97.2 F L 07/31/23 03:39 Pulse 65 07/31/23 03:39 Resp 16 07/31/23 03:39 BP 135/71 07/31/23 03:39 Pulse Ox 92 07/31/23 03:39 Laboratory Results - last 24 hr 07/31/23 06:55 WBC 9.06 RBC 4.50 Hgb 13.2 Hct 39.8 MCV 88 MCH 29.3 MCHC 33.2 RDW 13.5 Plt Count 275 MPV 10.8 Immature Gran % 0.2 Neutrophils % 73.8 Lymphocytes % 18.8 Monocytes % 7.1 Eosinophils % 0.0 Basophils % 0.1 Nucleated RBC % 0.0 Absolute Neutrophils 6.69 Absolute Lymphocytes 1.70 Absolute Monocytes 0.64 Absolute Eosinophils 0.00 Absolute Basophils 0.01 Time Spent with Patient Time Spent with Patient: >50 minutes Time was spent: preparing to see the patient(eg.review tests), obtaining and/or reviewing separately otained hiistory, ordering medications,tests, procedures, referring, communicating with other health career development specialist, indepentently interpreting results, counseling the patient and care coordination
[2023-07-31] MEDS: REMDESIVIR 100 MG in Normal Saline 250 ML 250 MG IVPB (11:01)
[2023-07-31] MEDS: Furosemide 40 MG TAB 80 MG PO (11:04)
[2023-07-31] MEDS: Normal Saline Flush 10 ML SYR IVP ×2 (11:06→13:54)
[2023-07-31] MEDS: Dexamethasone 10 MG/ML VIAL 6 MG IVP (13:53)
[2023-07-31] MEDS: Enoxaparin 40 MG/0.4 ML SYR SC (18:31)
--- NOTE | 2023-07-31 23:37 | NUR.NOTE ---
Nursing Note: pt hit call novak stating that she called for 30 minutes straight and noone answered. this rn as well as 4(charge bucky, agricultural economist joe, charge zi, and bisi blake) other staff, as well as myself, agreed that her call novak had not gone off at all, except this time she stated this complaint. agricultural economist went to room to turn patient heat down and give ice water,which was what she was wanted. Pt stated that she wanted the names of all of her care team,thee were given, and she added to a list that she stated she was going to call the gold marker and complain about after her discharge. This rn went to room and had patient push the call novak to verify that it worked. it now works for sure. patient denies needs at this time, but states that she is very pissed off. will continue to moniter.
[2023-08-01 03:20] VITALS: BP 119/68; PULSE 70; RESP 16; TEMP 36.1; O2SAT 93
[2023-08-01] MEDS: Levothyroxine 175 MCG TAB PO (06:11)
[2023-08-01 07:08] LABS: HCT 38.8 % (36.0-46.0); MCH 29.9 pg (27.0-33.0); MCHC 33.5 % (32.0-36.0); MCV 89 fL (80-95); MPV 10.9 fL (8.0-11.0); Platelet Count 272 10^3/uL (130-400); RBC 4.35 10^6/uL (3.93-5.22); RDW 13.5 % (11.7-14.6); RDW-SD 44.1 fL; WBC 10.13 10^3/uL (4.4-10.8)
[2023-08-01 07:24] LABS: ALT 32 U/L (14-59); AST 25 U/L (15-37); Albumin 2.4 g/dL (3.4-5.0); Alkaline Phosphatase 79 U/L (46-116); Anion Gap 6.2 mmol/L (3-11); BUN 25 mg/dL (7-18); Bilirubin, Total 0.5 mg/dL (0.2-1.0); CO2 34.8 mmol/L (21.0-32.0); CREATININE 0.7 mg/dL (0.55-1.02); Calcium 7.8 mg/dL (8.5-10.1); Chloride 101 mmol/L (98-107); Estimated GFR 94.73 (mL/min/1.73m2); Glucose 113 mg/dL (74-106); Potassium 3.5 mmol/L (3.5-5.1); Sodium 142 mmol/L (136-145); Total Protein 6.6 g/dL (6.4-8.2)
[2023-08-01 08:17] VITALS: BP 133/64; PULSE 72; RESP 14; TEMP 36.7; O2SAT 94
[2023-08-01] MEDS: Normal Saline Flush 10 ML SYR IVP (08:35)
[2023-08-01] MEDS: Furosemide 40 MG TAB 80 MG PO (08:35)
[2023-08-01] MEDS: Miconazole 2% Topical Powder 85 GM BTL TP (08:38)
--- NOTE | 2023-08-01 10:42 | W.PM.DS.N ---
Date of service: 08/01/23 Time of Service: 10:43 DS: Diagnosis Discharge Diagnosis (1) COVID: Status: Acute Asessment and Plan: - Found positive on admission -Was treated with dexamethasone and remdesivir for 3 days (2) Acute on chronic respiratory failure with hypoxia: Status: Acute Asessment and Plan: - Likely secondary to COVID-19 as noted above as well as COPD exacerbation -Had received dexamethasone and remdesivir as noted above -Will be discharged with additional 5 days of 40 mg p.o. prednisone daily -Will continue home supplemental oxygen, breathing treatments and inhalers (3) Lymphedema: Status: Acute Asessment and Plan: - Continue home Lasix (4) Chronic obstructive lung disease: Status: Chronic Asessment and Plan: - As noted above (5) Obstructive sleep apnea syndrome: Status: Chronic Asessment and Plan: - Continue home BiPAP (6) Morbid obesity: Status: Acute Asessment and Plan: - Recommend ongoing weight loss discussion with PCP Discharge Plan Disposition Patient Disposition: Home Condition: Good Discharge Details Reason For Visit: COVID-19 PNA,Acute on Chronic Hypoxic Respiratory Admit Date/Time: 07/29/23 14:13 Admit Provider: Marek Reyes Attending Provider: Marek Reyes Primary Care Provider: Alphonso Murphy Hospital Course Hospital Course: Patient presented with acute on chronic hypoxic respiratory failure secondary to COVID-19 infection and COPD exacerbation. She was treated with remdesivir, dexamethasone and breathing treatments and had significant improvement in her breathing and was back to her baseline 3 L nasal cannula during the day. She will be discharged with an additional 5 days of 40 mg p.o. prednisone. Home Meds and New Rx's Prescriptions: New prednisone 20 mg tablet 40 mg PO DAILY 5 Days Qty: 10 0RF Continued nystatin 100,000 unit/gram powder 1 applic TP BID PRN (Reason: intertrigo) Qty: 30 5RF ascorbic acid (vitamin C) 1,000 MG tablet 1,000 mg PO DAILY BiPAP Inhalation Gas 5 l IN DIRECTED Rx Instructions: sleep apnea ([facility] sleep lab 2013) uses with oxygen oxygen Inhalation 2 l Intranasal DIRECTED Patient Comments: Continuous and uses with bipap Rx Instructions: 2L/NC continuous albuterol sulfate [ProAir HFA] 90 mcg/actuation HFA aerosol inhaler 1 - 2 puff Inhalation Q6H PRN Qty: 1 11RF betamethasone, augmented 0.05 % lotion 1 applic topical BID PRN (Reason: allergic reaction) Qty: 60 2RF alclometasone 0.05 % cream 1 applic topical BID PRN (Reason: itching) Qty: 45 1RF ipratropium-albuterol 0.5 mg-3 mg(2.5 mg base)/3 mL solution for nebulization 3 ml IH QID MDD 4 nebs Qty: 180 3RF ketoconazole 2 % cream 1 applic topical BID PRN (Reason: facial rash) Qty: 60 1RF levothyroxine [Levo-T] 175 mcg tablet 175 mcg PO DAILY Qty: 90 3RF furosemide 40 mg tablet 80 mg PO DAILY Qty: 180 3RF Rx Instructions: per color grinder at [facility] aspirin 325 MG tablet 325 mg PO DAILY Qty: 0 0RF No Action (DME) Aerochamber Mini 1 EACH spacer 1 ea Inhalation PRN Qty: 1 Rx Instructions: DIRECTED WITH INHALER Discharge Instructions Instructions: COPD (Chronic Obstructive Pulmonary Disease) (DC), COVID-19 Patient Family Discharge Instructions Activity:: Activity as Tolerated Equipment/Supplies:: No Equipment Needed Diet:: As Tolerated Discharge Orders Discharge Orders: Discharge Order (Routine); Ordered 08/01/23 Ordered By: Marek Reyes DS: Summary Time Spent with Patient providing and/or coordinating discharge services: Greater than 30 minutes Status at Discharge Functional status at discharge: wheelchair bound Overall status at discharge: patient is back to baseline Mental Status: mental status grossly normal Speech and Movement: speech and movement normal Mood: congruent mood Affect: normal affect Exam Narrative Exam Narrative: Well-appearing, older morbidly obese female sitting up at the edge of the bed in minimal respiratory distress, ANO x 4, [address] cannula in place, heart regular rate rhythm, lungs with end expiratory wheezing and diminished in bilateral bases, abdomen soft, nontender nondistended Psych Mental Status: mental status grossly normal Speech and Movement: speech and movement normal Mood: congruent mood Affect: normal affect DS: Data Vitals/I&O Vitals and I&O: Vital Signs Temperature 98.1 F 08/01/23 08:17 Temperature Source Tympanic 08/01/23 08:17 Pulse 72 08/01/23 08:17 Pulse Rhythm Regular 08/01/23 08:30 Pulse 84 07/29/23 14:30 Respiratory Rate 14 08/01/23 08:17 Respiratory Effort Short of Breath, Labored 08/01/23 08:30 Respiratory Depth Shallow 08/01/23 08:30 Respiratory Pattern Normal 08/01/23 08:30 Blood Pressure 133/64 08/01/23 08:17 Blood Pressure Mean 72 07/29/23 13:31 Blood Pressure Position Supine 07/29/23 11:25 Pulse Oximetry 94 08/01/23 08:17 Oxygen Delivery Method Nasal Cannula 08/01/23 08:17 Oxygen Flow Rate 2 08/01/23 08:17 Pain Level 3 08/01/23 08:17 Comment entered in error 08/01/23 09:22 Intake & Output 07/31/23 08/01/23 08/01/23 17:59 05:59 17:59 Intake Total 390 / 390 240 / 630 Output Total 200 / 200 Balance 390 / 390 40 / 430 Intake: Oral 390 / 390 240 / 630 Output: Urine 200 / 200 Other: Urine Color Light Byron Light Byron Urine Appearance Cloudy Clear Urine Odor Normal Normal Comment unmeasured urine light byron, cloudy, mixed with scant amount of stool Voiding Methods Bedside Commode Bedside Commode Data Completed and Pending Labs on day of discharge: Labs from last 24 hours 08/01/23 06:50 WBC 10.13 RBC 4.35 Hgb 13.0 Hct 38.8 MCV 89 MCH 29.9 MCHC 33.5 RDW 13.5 Plt Count 272 MPV 10.9 Sodium 142 Potassium 3.5 Chloride 101 Carbon Dioxide 34.8 H Anion Gap 6.2 BUN 25 H Creatinine 0.7 Est GFR (CKD-EPI 2020) 94.73 Glucose 113 H Calcium 7.8 L Total Bilirubin 0.5 AST 25 ALT 32 Alkaline Phosphatase 79 Total Protein 6.6 Albumin 2.4 L Preliminary micro results at discharge 07/29/23 16:00 Blood Culture - Preliminary Blood NO GROWTH 48 HOURS 07/29/23 12:15 Blood Culture - Preliminary Blood NO GROWTH 48 HOURS PFSH All Active Problems (Updated 07/29/23 @ 14:43 by Marek Reyes MD) Acute on chronic respiratory failure with hypoxia (Acute) COVID (Acute) COPD (chronic obstructive pulmonary disease) (Chronic) Venous stasis dermatitis (Acute) Lymphedema (Acute) Chronic obstructive lung disease (Chronic) Quit smoking 2010. PFTs 09/2012 showed an FEV1 of 60% with improvement to 80% with bronchodilator, thought to be severe restrictive disease. Depressive disorder (Chronic) Insomnia with sleep apnea (Chronic) Obstructive sleep apnea syndrome (Chronic) Chronic headaches (Chronic) Recent Neurology consult for possible papilledema. Urinary incontinence (Chronic) On Detrol Recurrent UTI (Chronic) History of Surgical Procedure (Chronic) a. Right and left toal knee replacements. b. Left knee has been repeatedly operated on with slava surgies, three replacements. 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) Knee pain, bilateral (Chronic 07/23/14) s/p bilat TKR (left infected with mult surg and decreased mobility) Morbid obesity (Acute 04/05/13) Sensorineural hearing loss, bilateral (Chronic 08/29/13) DVT prophylaxis (Acute) Advance directive on file (Acute) Low back pain with sciatica (Chronic 05/03/14) CT at [facility] [place] L34 spinal stenosis Varicose veins of lower extremity (Chronic) Depression (Chronic) Grief at loss of child (Acute) Chronic respiratory failure with hypoxia and hypercapnia (Chronic) Status post total bilateral knee replacement (Acute) Pleural effusion on right (Acute 05/03/14) History of fasciotomy (Acute) Chest pain (Acute 07/23/14) Chronic obstructive pulmonary disease (Chronic) Wrist pain, right (Acute) Allergic conjunctivitis (Acute) Sprain of scapholunate ligament (Acute 03/21/19) COPD exacerbation (Acute) Community acquired pneumonia (Acute) DAVID (obstructive sleep apnea) (Chronic) Hyperglycemia (Acute) Allergic sinusitis (Acute) Mixed conductive and sensorineural hearing loss of both ears (Acute) Thyroid enlargement (Acute) S/p thyroidectomy 2020 Fever (Acute) Cellulitis of leg, right (Acute) Ulcer of right lower extremity (Acute) Bronchitis (Acute) Impacted cerumen, left ear (Acute) Conductive hearing loss, external ear (Acute) Dysphagia (Acute) Chest wall pain (Acute) Low back pain (Acute) Viral URI (Acute) Thyroid disease (Acute) Bilateral hand pain (Acute) Right carpal tunnel syndrome (Acute) Knee pain, left (Acute) COPD exacerbation (Acute) Arthritis of right hand (Acute) Impingement of right ulnar nerve (Acute) Morbid obesity (Acute) Abnormal breast finding (Acute) Dermoid cyst of neck (Acute) Hypothyroidism (Chronic) Microcalcifications of the breast (Acute) Right arm pain (Acute) Neuropathy of left hand (Acute) Neuropathy of right hand (Acute) Urinary incontinence (Acute) Bilateral carpal tunnel syndrome (Acute) Surgical History Replacement of total knee joint Bilateral; left-became [id number]-crfggtrp surgeries Fasciotomy, Foot (~1996) LEFT Family History Mother Diabetes Personal history of malignant neoplasm LUNG Father Personal history of malignant neoplasm BRAIN Grandfather No problems noted. Grandfather No problems noted. Grandmother No problems noted. Grandmother No problems noted. Social History Smoking/Tobacco Use Status: Former Tobacco Use tobacco type: cigarettes Quit Date: 01/21/21 Second Hand Exposure: Yes Smoking risk assessment performed?: Yes Alcohol Intake: never Drug use: Never Substance use type: does not use Housing: apartment Communication Needs: Hard of Hearing and Corrective Lenses Pets and animals: Yes Pets and animals: cat(s) Sexually active: Yes Current gender identity: female What is your relationship status?: never How often do you talk on the phone with friends or family?: decline to answer How often do you get together with friends or relatives?: decline to answer How often do you attend muslim or jain services?: decline to answer Do you belong to any clubs or organized social groups?: no Panel score (0-1 are the most socially isolated patients): 0 Seatbelt use: never Do you feel safe at home: Yes Do you feel safe in your relationship?: Yes Time Spent with Patient Time Spent with Patient: <45 minutes Time was spent: preparing to see the patient(eg.review tests), obtaining and/or reviewing separately otained hiistory, ordering medications,tests, procedures, referring, communicating with other health healthcare advisory services manager, indepentently interpreting results, counseling the patient and care coordination
--- NOTE | 2023-08-01 12:34 | CMDISCH_ITS ---
Date of service: 08/01/23 Time of Service: 12:34 LACE Index Scoring Tool Questions: Length of Stay (in days): 3 Was the patient admitted via the E.D.?: Yes Comorbidities: Chronic Pulmonary Disease E.D. Visits: 1 Answers: Total Score: 9 Risk of Readmission: Low Risk Care Management Discharge Plan Reason for Hospitalization: COVID-19 PNA, acute on chronic respiratory failure Discharge Plan: Radha will return home when ready per MD, and resume supports in the community, she will transport via [facility] W[facility] Van coordinated by LEONOR. Patient/Family Education Needs: Review discharge instructions, discuss Ask Me Three. Services Needed at Discharge: Transportation
--- NOTE | 2023-08-01 12:53 | NUR.NOTE ---
Nursing Note:Enter patients room to review discharge instructions, patient states why are you here, nurse updated she was there to review discharge instructions, patient visibly frustrated as nurse reviewed instructions, patient states just give me the paperwork to sign at this time in airborne precautions rooms paper work is not signed and returned to chart for infection prevention per tank charger. Nurse \ informed patient she didn't to sign, nurse asked if there were any further question, patient did not respond and grabbed paperwork and tossed it on bed. Nurse asked again if there were any questions, no left patients room.
== END 2023-08-01 13:10 | disposition home or self-care (01) | DRG 177 ==
LOC: ER 14:11 → MS 16:27
PROVIDERS: Admitting Provider Family Medicine; Emergency Provider Nurse Practitioner Family; PCP Family Medicine; Visit Provider Family Medicine
DX: U07.1 COVID-19 (principal); J96.21 Acute and chronic respiratory failure with hypoxia; Z68.45 Body mass index [BMI] 70 or greater, adult; I89.0 Lymphedema, not elsewhere classified; G47.33 Obstructive sleep apnea (adult) (pediatric); J44.9 Chronic obstructive pulmonary disease, unspecified; E66.01 Morbid (severe) obesity due to excess calories; I87.8 Other specified disorders of veins; Z87.891 Personal history of nicotine dependence; F32.A Depression, unspecified; R51.9 Headache, unspecified; R32 Unspecified urinary incontinence; Z96.653 Presence of artificial knee joint, bilateral; H90.3 Sensorineural hearing loss, bilateral; E89.0 Postprocedural hypothyroidism
CPT/HCPCS: 00123; 36415; 80048; 80053; 82805; 84145; 85027; 87040; 87637; 93005; 94640; 96365; 96375; 99285; J1650; 71045; 83605; 83735; 83880; 85025; 93010; 94664; 99223; 99233; 99239; J0248; J1100; J3490; J7620

== ENCOUNTER 2023-11-30 12:23 | Outpatient (CLI) | payer MEDICARE, MEDICAID, SELFPAY ==
[2023-11-30 14:22] LABS: TSH (W/Ref FT4) 16.13 uIU/mL (0.36-3.74)
[2023-11-30 14:38] LABS: FREE T4 1.02 ng/dL (0.76-1.46)
== END 2023-11-30 12:24 | disposition home or self-care (01) ==
LOC: LBO 12:23
PROVIDERS: PCP Family Medicine; Visit Provider Family Medicine
DX: E03.9 Hypothyroidism, unspecified (principal)
CPT/HCPCS: 36415; 84439; 84443

== ENCOUNTER → 2024-02-14 02:31 | Outpatient (CLI) | payer MEDICARE, MEDICAID, SELFPAY ==
--- NOTE | 2024-02-14 07:15 | DI.RAD_ITS ---
Exam(s) XR CHEST 2V PA LATERAL EXAM: XR CHEST 2V PA LATERAL CLINICAL HISTORY: chest pain, COPD,R07.89,R07.8. TECHNIQUE: 2D digital imaging was performed. COMPARISON: CR,XR XR CHEST 2V PA LATERAL from 07/09/2023 CR XR PORTABLE CHEST AP from 07/29/2023 FINDINGS: 2 views: Mild cardiomegaly again noted. Mediastinum unchanged. There is pulmonary venous hypertension pattern boarding on its this tissue pulmonary edema. There ar e no Bonnie B lines. No obvious pleural effusions. IMPRESSION: Cardiomegaly. Mild pulmonary vascular congestion. No obvious pleural effusions evident on this sing le portable AP view. DATA REPOSITORY: RADIATION DOSE DELIVERED:
== END ==
PROVIDERS: PCP Family Medicine; Visit Provider Family Medicine
DX: R07.89 Other chest pain (principal)
CPT/HCPCS: 71046

== ENCOUNTER 2024-02-14 12:45 | Outpatient (CLI) | payer MEDICARE, MEDICAID, SELFPAY ==
[2024-02-14 12:22] LABS: D-Dimer 1824 ng/mlFEU (<500)
== END 2024-02-14 12:46 | disposition home or self-care (01) ==
LOC: LBO 12:45
PROVIDERS: PCP Family Medicine; Visit Provider Family Medicine
DX: R07.89 Other chest pain (principal)
CPT/HCPCS: 36415; 85379

== ENCOUNTER → 2024-02-27 02:46 | Outpatient (CLI) | payer MEDICARE, MEDICAID, SELFPAY ==
--- NOTE | 2024-02-27 08:13 | DI.CT_ITS ---
Exam(s) CT CHEST PE CTA EXAM: CT CHEST PE CTA CLINICAL HISTORY: pos d-dimer; chest pain; SOB, R06.02. TECHNIQUE: Imaging Protocol: CT angiography of the chest was performed using pulmonary embolus елена col. Multi planar reconstructions were performed. CONTRAST MATERIAL: Intravenous: Omnipaque 350 Contrast volume: 100 cc COMPARISON: CT CT CHEST PE CTA from 07/08/2020 CR XR CHEST 2V PA LATERAL from 02/14/2024 FINDINGS: CHEST: PULMONARY ARTERIES: Less than optimal study due to respiratory motion artifact and bolus timing. How ever, there are no obvious intraluminal filling defects to suggest acute pulmonary emboli. LUNGS: There increased markings in the bilateral lower lobes, not associated with pleural effusions.. No confluent infiltrates in the upper lobes nor in the right middle lobe. No ominous pulmonary nod ules. MEDIASTINUM: There is no hilar nor mediastinal adenopathy. CARDIAC: There is cardiomegaly. No pericardial effusion.Caliber of the thoracic aorta is within norm al limits. There is no significant shift of the interventricular septum. PARTIALLY VISUALIZED UPPERMOST ABDOMEN: No adrenal masses. Hepatic steatosis. Spleen size normal. OSSEOUS: No significant osseous lesions.. IMPRESSION: 1. No evidence of obvious acute pulmonary emboli, realizing limitations of the study. 2. Mild subpleural infiltrates noted in the posterior basal segments both lower lobes, not associated with pleural effusions. 3. No intrathoracic adenopathy evident. 4. Mild cardiomegaly. No pericardial effusion. No aortic dissection. RADIATION DOSE DELIVERED: 807.16mGy.cm Total DLP DATA REPOSITORY: All CT scans at this facility are submitted to the National Radiology Data Registry (NRDR) Dose Index Registry (DIR) with the [employer] (A[employer]). RADIATION OPTIMIZATION: All CT scans at this facility use at least one of these dose optimization te chniques: automated exposure control; mA and/or kV adjustment per patient size (includes targeted exa ms where dose is matched to clinical indication); or iterative reconstruction.
[2024-02-27 11:44] LABS: CREATININE 0.7 mg/dL (0.55-1.02); Estimated GFR 94.73 (mL/min/1.73m2); TSH (W/Ref FT4) 2.46 uIU/mL (0.36-3.74)
[2024-02-27] MEDS: Normal Saline - Diluent 50 ML VIAL IJ (12:18)
[2024-02-27] MEDS: Omnipaque 350 MG/ML 100 ML BTL IJ (12:18)
== END ==
PROVIDERS: Family Medicine; PCP Family Medicine; Visit Provider Family Medicine
DX: E03.9 Hypothyroidism, unspecified (principal); E07.9 Disorder of thyroid, unspecified; R06.02 Shortness of breath
CPT/HCPCS: 71275; 82565; 84443; J3490

== ENCOUNTER 2024-03-20 14:57 | Emergency (ER) | payer MEDICARE, MEDICAID, SELFPAY ==
[2024-03-20 15:10] VITALS: BP 145/72; PULSE 78; RESP 16; TEMP 37.1; O2SAT 93
[2024-03-20 16:43] VITALS: PULSE 78; RESP 16; O2SAT 94
--- NOTE | 2024-03-20 18:22 | ED.GENADUL_ITS ---
Discharge Plan Disposition Patient Disposition: Home Condition: Stable Discharge Details Clinical Impression: Laceration of dobson Primary Care Provider: Alphonso Murphy ED Provider: Jackie Scott Home Meds and New Rx's Prescriptions: Continued pantoprazole 20 mg tablet,delayed release (DR/EC) 20 mg PO DAILY Qty: 90 3RF Rx Instructions: 04/13/23 Per GI. -hb alclometasone 0.05 % cream 1 applic topical BID PRN (Reason: itching) Qty: 45 1RF ketoconazole 2 % cream 1 applic topical BID PRN (Reason: facial rash) Qty: 60 1RF Eliquis 5 mg tablet 5 mg PO BID Qty: 60 5RF nystatin 100,000 unit/gram powder 1 applic TP BID PRN (Reason: intertrigo) Qty: 30 5RF ascorbic acid (vitamin C) 1,000 MG tablet 1,000 mg PO DAILY (DME) Aerochamber Mini 1 EACH spacer 1 ea Inhalation PRN Qty: 1 Rx Instructions: DIRECTED WITH INHALER BiPAP Inhalation Gas 5 l IN DIRECTED Rx Instructions: sleep apnea ([facility] sleep lab 2013) uses with oxygen oxygen Inhalation 2 l Intranasal DIRECTED Patient Comments: Continuous and uses with bipap Rx Instructions: 2L/NC continuous albuterol sulfate [ProAir HFA] 90 mcg/actuation HFA aerosol inhaler 1 - 2 puff Inhalation Q6H PRN Qty: 1 11RF betamethasone, augmented 0.05 % lotion 1 applic topical BID PRN (Reason: allergic reaction) Qty: 60 2RF ipratropium-albuterol 0.5 mg-3 mg(2.5 mg base)/3 mL solution for nebulization 3 ml IH QID MDD 4 nebs Qty: 180 3RF sertraline 50 mg tablet 50 mg PO DAILY Qty: 90 3RF levothyroxine 200 mcg tablet 200 mcg PO DAILY Qty: 90 3RF furosemide 40 mg tablet 80 mg PO DAILY Qty: 180 3RF Rx Instructions: [place] [facility] [place] MG tablet 325 mg PO DAILY Qty: 0 0RF Discharge Instructions Instructions: Taking care of cuts, scrapes, and puncture wounds Additional Instructions: keep wound clean and dry suture removal in 10-12 wash with soap and water daily and apply bacitracin keep covered for 72 hours and then allow to air dry during day Referrals: Alphonso Murphy MD [Primary Care Provider] - Discharge Data Discharge Date/Time-TO BE ENTERED AT DEPARTURE: 03/20/24 16:45 HPI General Date/Time Provider Initiated Documentation: 03/20/24 15:14 . HPI Narrative: This 68-year-old female presents with laceration to right lower extremity after accidentally hitting self with her leg in her wheeled chair. Tetanus is not up-to-date and patient is on Eliquis. Denies any additional injuries. Denies strength or sensation change. Related Data Home Medications ?Medication ?Instructions ?Recorded ?Confirmed ascorbic acid (vitamin C) 1,000 mg 1,000 mg PO DAILY 11/25/12 03/20/24 tablet inhalational spacing device ##1 12/21/13 03/20/24 (Aerochamber Mini) Bipap 5 l IN DIRECTED 07/23/14 03/20/24 Oxygen 2 l intranasal DIRECTED 12/24/14 03/20/24 aspirin 325 mg tablet 325 mg PO DAILY #0 tab-caps 06/22/15 03/20/24 albuterol sulfate 90 mcg/actuation 1 - 2 puff inhalation Q6H PRN ##1 06/06/20 03/20/24 aerosol inhaler (ProAir HFA) betamethasone, augmented 0.05 % 1 applic topical BID PRN allergic 06/20/21 03/20/24 lotion reaction #60 mL ipratropium 0.5 mg-albuterol 3 mg 3 ml inhalation QID COPD 10/16/22 03/20/24 (2.5 mg base)/3 mL nebulization exacerbation/wheezing #180 mL soln pantoprazole 20 mg tablet,delayed 20 mg PO DAILY #90 tabs 08/04/23 03/20/24 release sertraline 50 mg tablet 50 mg PO DAILY #90 tabs 10/13/23 03/20/24 alclometasone 0.05 % topical cream 1 applic topical BID PRN itching 01/25/24 03/20/24 #45 grams ketoconazole 2 % topical cream 1 applic topical BID PRN facial 01/25/24 03/20/24 rash #60 grams apixaban 5 mg tablet (Eliquis) 5 mg PO BID #60 tabs 02/14/24 03/20/24 nystatin 100,000 unit/gram topical 1 applic topical BID PRN 02/14/24 03/20/24 powder intertrigo #30 grams levothyroxine 200 mcg tablet 200 mcg PO DAILY #90 tabs 02/15/24 03/20/24 furosemide 40 mg tablet 80 mg (2 x 40 mg) PO DAILY #180 03/13/24 03/20/24 tabs Previous Rx's ?Medication ?Instructions ?Recorded aspirin 325 mg tablet 325 mg PO DAILY #0 tab-caps 06/22/15 albuterol sulfate 90 mcg/actuation 1 - 2 puff inhalation Q6H PRN ##1 06/06/20 aerosol inhaler (ProAir HFA) betamethasone, augmented 0.05 % 1 applic topical BID PRN allergic 06/20/21 lotion reaction #60 mL ipratropium 0.5 mg-albuterol 3 mg 3 ml inhalation QID COPD 10/16/22 (2.5 mg base)/3 mL nebulization exacerbation/wheezing #180 mL soln pantoprazole 20 mg tablet,delayed 20 mg PO DAILY #90 tabs 08/04/23 release sertraline 50 mg tablet 50 mg PO DAILY #90 tabs 10/13/23 alclometasone 0.05 % topical cream 1 applic topical BID PRN itching 01/25/24 #45 grams ketoconazole 2 % topical cream 1 applic topical BID PRN facial 01/25/24 rash #60 grams apixaban 5 mg tablet (Eliquis) 5 mg PO BID #60 tabs 02/14/24 nystatin 100,000 unit/gram topical 1 applic topical BID PRN 02/14/24 powder intertrigo #30 grams levothyroxine 200 mcg tablet 200 mcg PO DAILY #90 tabs 02/15/24 furosemide 40 mg tablet 80 mg (2 x 40 mg) PO DAILY #180 03/13/24 tabs Allergies Allergy/AdvReac Type Severity Reaction Status Date / Time hydrocodone Allergy Severe ITCHING Verified 03/20/24 15:13 morphine Allergy Mild PRURITIS Verified 03/20/24 15:13 oxycodone Allergy Mild ITCHING Verified 03/20/24 15:13 General Stated Complaint: Laceration RUEBEN: 4 Exam Narrative Exam Narrative: Laceration approximately 3 cm to right lower extremity, no active bleeding, serosanguineous drainage from lymphedema, bleeding controlled, neurovascularly intact, alert oriented, no acute distress Course Vital Signs Vital signs: Vital Signs Temperature 37.1 C 03/20/24 15:10 Pulse 78 03/20/24 15:10 Respiratory Rate 16 03/20/24 15:10 Blood Pressure 145/72 H 03/20/24 15:10 Pulse Oximetry 93 03/20/24 15:10 Temperature 37.1 C 03/20/24 15:10 Temperature Source Temporal Artery Scan 03/20/24 15:10 Pulse 78 03/20/24 16:43 Respiratory Rate 16 03/20/24 16:43 Respiratory Effort Normal, Non-Labored 03/20/24 15:58 Blood Pressure 145/72 H 03/20/24 15:10 Pulse Oximetry 94 03/20/24 16:43 Oxygen Delivery Method Nasal Cannula 03/20/24 15:10 Oxygen Flow Rate 3 03/20/24 15:10 Pain Level 0 03/20/24 16:43 Procedures Laceration Laceration 1: Site: lower extremity Side (If applicable): right Size (cm): 3 Description: linear Depth: simple, single layer Local anesthetic: Lidocaine 1% Amount of anesthesia used (mL): 4 Pre-repair: wound explored and irrigated extensively Skin layer closed with: other Size (cm): 4-0 Number of sutures: 3 Technique: simple, interrupted and horizontal mattress Medical Decision Making 68-year-old female no acute distress with laceration to right lower extremity. 3 sutures placed, 2 horizontal and 1 simple interrupted. Tetanus updated and dressing applied, tolerated procedure without incident. Suture removal in 10 to 12 days, return precautions reviewed and patient expressed understanding Quality:SDOH Health Related Social Needs: No Data to Display PFSH All Active Problems (Updated 03/20/24 @ 16:32 by INESSA Galicia) Laceration of dobson (Acute) GERD (gastroesophageal reflux disease) (Chronic) had negative barium esophagram in 11/2022. Anxiety (Chronic) Venous stasis dermatitis (Acute) Lymphedema (Acute) Chronic obstructive lung disease (Chronic) Quit smoking 2010. PFTs 09/2012 showed an FEV1 of 60% with improvement to 80% with bronchodilator, thought to be severe restrictive disease. Chronic headaches (Chronic) Recent Neurology consult for possible papilledema. Urinary incontinence (Chronic) On Detrol Recurrent UTI (Chronic) Right ventricular dysfunction (Chronic) Knee pain, bilateral (Chronic 07/23/14) s/p bilat TKR (left infected with mult surg and decreased mobility) Morbid obesity (Acute 04/05/13) Sensorineural hearing loss, bilateral (Chronic 08/29/13) Advance directive on file (Acute) Low back pain with sciatica (Chronic 05/03/14) [place] [facility] [place] stenosis Varicose veins of lower extremity (Chronic) Depression (Chronic) Grief at loss of child (Acute) Chronic respiratory failure with hypoxia and hypercapnia (Chronic) home BiPap Status post total bilateral knee replacement (Acute) Sprain of scapholunate ligament (Acute 03/21/19) DAVID (obstructive sleep apnea) (Chronic) on BiPap Hyperglycemia (Acute) Mixed conductive and sensorineural hearing loss of both ears (Acute) Right carpal tunnel syndrome (Acute) Arthritis of right hand (Acute) Impingement of right ulnar nerve (Acute) Dermoid cyst of neck (Acute) Hypothyroidism (Chronic) Microcalcifications of the breast (Acute) Neuropathy of left hand (Acute) Neuropathy of right hand (Acute) Bilateral carpal tunnel syndrome (Acute) Medical History Hx pulmonary embolism (~2015) treated with lovenox x 3 months Surgical History Status post thyroidectomy History of fasciotomy History of Surgical Procedure a. Right and left toal knee replacements. b. Left knee has been repeatedly operated on with slava surgies, three replacements. Replacement of total knee joint Bilateral; left-became [id number] surgeries Fasciotomy, Foot (~1996) LEFT Family History Mother Diabetes Personal history of malignant neoplasm LUNG Father Personal history of malignant neoplasm BRAIN Grandfather No problems noted. Grandfather No problems noted. Grandmother No problems noted. Grandmother No problems noted. Social History Smoking/Tobacco Use Status: Former Tobacco Use tobacco type: cigarettes Quit Date: 01/21/21 Second Hand Exposure: Yes Smoking risk assessment performed?: Yes Alcohol Intake: never Drug use: Never Substance use type: does not use Counseling given: No Housing: apartment Communication Needs: Hard of Hearing and Corrective Lenses Pets and animals: Yes Pets and animals: cat(s) Sexually active: Yes Current gender identity: female What is your relationship status?: never How often do you talk on the phone with friends or family?: decline to answer How often do you get together with friends or relatives?: decline to answer How often do you attend anabaptist or restorationism services?: decline to answer Do you belong to any clubs or organized social groups?: no Panel score (0-1 are the most socially isolated patients): 0 Seatbelt use: never Do you feel safe at home: Yes Do you feel safe in your relationship?: Yes
== END 2024-03-20 16:45 | disposition home or self-care (01) ==
PROVIDERS: Emergency Provider Physician Assistant; PCP Family Medicine
DX: S81.811A Laceration without foreign body, right lower leg, initial encounter (principal); Z23 Encounter for immunization; W22.8XXA Striking against or struck by other objects, initial encounter
CPT/HCPCS: 12002; 90471; 90715; 99284

== ENCOUNTER 2024-04-10 22:16 | Observation (INO) | payer MEDICARE, MEDICAID, SELFPAY ==
[2024-04-10] VITALS (14 sets, daily range): BP systolic 124–138; BP diastolic 45–117; PULSE 69–85; RESP 16–30; TEMP 36.7; O2SAT 91–98
--- NOTE | 2024-04-10 22:15 | RT.EKG_ITS ---
APPROVED REPORT Exam: Resting ECG Reason for Exam: bleeding Patient Location: E HR:83 bpm ECG Measurements Heart Rate 83 AXIS NE 185 P 68 QRSd 108 QRS 54 QT 388 T -1 QTc 456 Conclusion Sinus rhythm... V-rate 60- [address] segment or t wave abnormalities to suggest occlusive MO
--- NOTE | 2024-04-10 22:15 | DI.RAD_ITS ---
Exam(s) XR PORTABLE CHEST AP EXAM: XR PORTABLE CHEST AP CLINICAL HISTORY: wheeze, increased O2 requirement. TECHNIQUE: 2D digital imaging was performed. COMPARISON: CR XR CHEST 2V PA LATERAL from 02/14/[address] CHEST PE CTA from 02/27/2024 FINDINGS: Single AP portable view. Mild cardiomegaly. Mediastinum is not widened. There are increased markings in the lung dubose but probably exaggerated by lordotic portable AP tech nique. However, there does appear to be some probable infiltrate in the left lower lobe. Also some platelik e atelectasis in the right lower lobe. There are no obvious pleural effusions. IMPRESSION: Probable left lower lobe infiltrate. Other findings as above. Recommend nonportable PA and lateral views at full inspiration when clinically possible. DATA REPOSITORY: RADIATION DOSE DELIVERED:
--- NOTE | 2024-04-10 22:38 | ED.GENADUL_ITS ---
Discharge Plan Disposition Patient Disposition: Admit to [facility] Condition: Serious Discharge Details Clinical Impression: Acute and chronic respiratory failure with hypoxia, Abnormal vaginal bleeding, Pneumonia Primary Care Provider: Alphonso Murphy ED Provider: Vianca Wolf Home Meds and New Rx's Prescriptions: No Action pantoprazole 20 mg tablet,delayed release (DR/EC) 20 mg PO DAILY Qty: 90 3RF Rx Instructions: 04/13/23 Per GI. -hb alclometasone 0.05 % cream 1 applic topical BID PRN (Reason: itching) Qty: 45 1RF ketoconazole 2 % cream 1 applic topical BID PRN (Reason: facial rash) Qty: 60 1RF Eliquis 5 mg tablet 5 mg PO BID Qty: 60 5RF nystatin 100,000 unit/gram powder 1 applic TP BID PRN (Reason: intertrigo) Qty: 30 5RF ascorbic acid (vitamin C) 1,000 MG tablet 1,000 mg PO DAILY (DME) Aerochamber Mini 1 EACH spacer 1 ea Inhalation PRN Qty: 1 Rx Instructions: DIRECTED WITH INHALER BiPAP Inhalation Gas 5 l IN DIRECTED Rx Instructions: sleep apnea ([facility]) uses with oxygen albuterol sulfate [ProAir HFA] 90 mcg/actuation HFA aerosol inhaler 1 - 2 puff Inhalation Q6H PRN Qty: 1 11RF betamethasone, augmented 0.05 % lotion 1 applic topical BID PRN (Reason: allergic reaction) Qty: 60 2RF ipratropium-albuterol 0.5 mg-3 mg(2.5 mg base)/3 mL solution for nebulization 3 ml IH QID MDD 4 nebs Qty: 180 3RF sertraline 50 mg tablet 50 mg PO DAILY Qty: 90 3RF levothyroxine 200 mcg tablet 200 mcg PO DAILY Qty: 90 3RF furosemide 40 mg tablet 80 mg PO DAILY Qty: 180 3RF Rx Instructions: per patient access specialist at [facility] [place] Inhalation 3 l Intranasal DIRECTED Patient Comments: Continuous and uses with bipap Rx Instructions: 3L/NC continuous aspirin 325 MG tablet 325 mg PO DAILY Qty: 0 0RF HPI General Mode of arrival: EMS . Date/Time Provider Initiated Documentation: 04/10/24 22:18 . Limitations to Documentation: no limitations . Information obtained by: patient, EMS and old records reviewed (most recent annual wellness visit note) . HPI Narrative: 68yo F with hx COPD on baseline 3LNC O2, BMI 74, presenting via EMS for bleeding. Patient states she thinks it is coming from the vagina. Started this evening, blood running down her leg. EMS observed large clot ~200ml. Last bowel movement earlier today, normal. No abdominal pain, nausea, or vomiting. No lightheadedness or syncope. Somewhat short of breath; noticed this earlier in the day and increased her O2 which as not been helping. Not chest pain. Not on anticoagulation- was on eliquis previously for possible PE but reports she did not have a PE and so it was stopped over a month ago. Otherwise in her usual state of health with no fevers, chills, rash, dysuria, headache, numbness, tingling, weakness, or other concerns. Related Data Home Medications ?Medication ?Instructions ?Recorded ?Confirmed ascorbic acid (vitamin C) 1,000 mg 1,000 mg PO DAILY 11/25/12 04/10/24 tablet inhalational spacing device ##1 12/21/13 04/10/24 (Aerochamber Mini) Bipap 5 l IN DIRECTED 07/23/14 04/10/24 aspirin 325 mg tablet 325 mg PO DAILY #0 tab-caps 06/22/15 04/10/24 albuterol sulfate 90 mcg/actuation 1 - 2 puff inhalation Q6H PRN ##1 06/06/20 04/10/24 aerosol inhaler (ProAir HFA) betamethasone, augmented 0.05 % 1 applic topical BID PRN allergic 06/20/21 04/10/24 lotion reaction #60 mL ipratropium 0.5 mg-albuterol 3 mg 3 ml inhalation QID COPD 10/16/22 04/10/24 (2.5 mg base)/3 mL nebulization exacerbation/wheezing #180 mL soln pantoprazole 20 mg tablet,delayed 20 mg PO DAILY #90 tabs 08/04/23 04/10/24 release sertraline 50 mg tablet 50 mg PO DAILY #90 tabs 10/13/23 04/10/24 alclometasone 0.05 % topical cream 1 applic topical BID PRN itching 01/25/24 04/10/24 #45 grams ketoconazole 2 % topical cream 1 applic topical BID PRN facial 01/25/24 04/10/24 rash #60 grams apixaban 5 mg tablet (Eliquis) 5 mg PO BID #60 tabs 02/14/24 04/10/24 nystatin 100,000 unit/gram topical 1 applic topical BID PRN 02/14/24 04/10/24 powder intertrigo #30 grams levothyroxine 200 mcg tablet 200 mcg PO DAILY #90 tabs 02/15/24 04/10/24 furosemide 40 mg tablet 80 mg (2 x 40 mg) PO DAILY #180 03/13/24 04/10/24 tabs oxygen 3 l intranasal DIRECTED 04/02/24 04/10/24 Previous Rx's ?Medication ?Instructions ?Recorded aspirin 325 mg tablet 325 mg PO DAILY #0 tab-caps 06/22/15 albuterol sulfate 90 mcg/actuation 1 - 2 puff inhalation Q6H PRN ##1 06/06/20 aerosol inhaler (ProAir HFA) betamethasone, augmented 0.05 % 1 applic topical BID PRN allergic 06/20/21 lotion reaction #60 mL ipratropium 0.5 mg-albuterol 3 mg 3 ml inhalation QID COPD 10/16/22 (2.5 mg base)/3 mL nebulization exacerbation/wheezing #180 mL soln pantoprazole 20 mg tablet,delayed 20 mg PO DAILY #90 tabs 08/04/23 release sertraline 50 mg tablet 50 mg PO DAILY #90 tabs 10/13/23 alclometasone 0.05 % topical cream 1 applic topical BID PRN itching 01/25/24 #45 grams ketoconazole 2 % topical cream 1 applic topical BID PRN facial 01/25/24 rash #60 grams apixaban 5 mg tablet (Eliquis) 5 mg PO BID #60 tabs 02/14/24 nystatin 100,000 unit/gram topical 1 applic topical BID PRN 02/14/24 powder intertrigo #30 grams levothyroxine 200 mcg tablet 200 mcg PO DAILY #90 tabs 02/15/24 furosemide 40 mg tablet 80 mg (2 x 40 mg) PO DAILY #180 03/13/24 tabs Allergies Allergy/AdvReac Type Severity Reaction Status Date / Time hydrocodone Allergy Severe ITCHING Verified 04/10/24 22:38 morphine Allergy Mild PRURITIS Verified 04/10/24 22:38 oxycodone Allergy Mild ITCHING Verified 04/10/24 22:38 General Stated Complaint: GI Bleed REUBEN: 4 Review of Systems Narrative: see HPI Exam Narrative Exam Narrative: General: Alert, obese Head: Normocephalic, atraumatic Neck: Trachea midline, ?Neck supple. ENT: ?MMM.? Cardiac: ?RRR, no murmurs appreciated Resp: Tachypneic, otherwise no increased work of breathing. Diffuse wheezes bilaterally. Abd: ?Soft, non-distended, nontender : ?No suprapubic tenderness. . Neurologic: GCS 15. ? Moves all extremities Rectal: Normal external exam, no evident bleeding. Pelvic: No active vaginal bleeding on external exam. Copious dark red blood in vaginal vault on manual exam. Course Vital Signs Vital signs: Vital Signs Temperature 36.7 C 04/10/24 22:22 Pulse 85 04/10/24 22:22 Respiratory Rate 26 H 04/10/24 22:22 Blood Pressure 134/50 L 04/10/24 22:22 Pulse Oximetry 93 04/10/24 22:22 Temperature 36.7 C 04/10/24 22:22 Temperature Source Tympanic 04/10/24 22:22 Pulse 85 04/10/24 22:22 Respiratory Rate 26 H 04/10/24 22:22 Blood Pressure 134/50 L 04/10/24 22:22 Blood Pressure Position Supine 04/10/24 22:22 Pulse Oximetry 93 04/10/24 22:22 Oxygen Delivery Method Room Air 04/10/24 22:22 Oxygen Flow Rate 0 04/10/24 22:22 Pain Level 0 04/10/24 22:22 Medical Decision Making 68yo F with hx COPD on baseline 3LNC O2, BMI 74, presenting via EMS for vaginal bleeding. Also somewhat short of breath; noticed this earlier in the day and increased her O2 which as not been helping. Tachypenic on arrival and requiring 6L O2 via NC to maintain sat >88%, diffuse wheezes on exam. No abdominal tenderness or rectal bleeding evident on external exam; no active/brisk vaginal bleeding however does have blood in vaginal vault on rectal exam. Did not attempt speculum exam on ED stretcher given pt habitus. Given duonebs on arrival. Not overtly septic; would not treat empirically. -EKG SR, appropriate intervals, no ST segment or T wave abnormalities to suggest occlusive NV. -CXR independently reviewed, LLL pneumonia on my view, agree with radiology read below. Labs reviewed as below, CBC reassuring with no leukokcytosis or anemia, CMP with no actionable abnormalities, coags normal, troponin negative x 2, BNP normal, viral swab negative. T&S sent. Discussed with Dr. Albert from [facility]; advised 10mg BID aygestin. No indication for acute intervention, from an OB standpoint could be managed out patient; advised BID 10mg aygestin for bleeding. On reassessment patient continues to require 5-6L O2 via NC; given dose steroid here without improvement. Unable to wean O2. Does become markedly dyspneic with minimal exertion (repositioning on stretcher). Repeat CBC with drop in Hg to 11.9 from 13.2. Moderate blood on pad. VBG with mild hypercarbia/respiratory acidosis, not suggestive of need for BiPAP. Hypoxia/increased O2 requirement and inability to tolerate activity is more concerning. With acute on chronic respiratory failure and pneumonia warrants admission. Discussed with [facility] hospitalist Dr. Medina; accepted to medicine service. Awaiting admission orders and transfer to the floor. Imaging Data Radiologic Study: Imaging: X-Ray Radiologist's impression: IMPRESSION: 1. Focal locally consolidative changes left lower lobe lung possibility of pneumonia cannot be excluded. 2. Probable congestive heart failure. Underlying inflammatory or infectious process not excluded. Lab Data Lab results reviewed: Yes I reviewed the patient's lab results. Labs: Laboratory Tests Range/Units 04/10/24 04/10/24 04/10/24 23:05 23:21 23:21 WBC (4.4-10.8) 10^3/uL 8.33 RBC (3.93-5.22) 10^6/uL 4.56 Hgb (11.2-15.7) g/dL 13.2 Hct (36.0-46.0) % 41.1 MCV (80-95) fL 90 MCH (27.0-33.0) pg 28.9 MCHC (32.0-36.0) % 32.1 RDW (11.7-14.6) % 14.5 Plt Count (130-400) 10^3/uL 286 MPV (8.0-11.0) fL 10.5 Immature Gran % % 0.2 Neutrophils % % 59.8 Lymphocytes % % 22.7 Monocytes % % 9.6 Eosinophils % % 7.1 Basophils % % 0.6 Nucleated RBC % (0.0-0.3) % 0.0 Absolute Neutrophils (1.2-6.7) 10^3/uL 4.98 Absolute Lymphocytes (1.2-3.4) 10^3/uL 1.89 Absolute Monocytes (0.1-0.8) 10^3/uL 0.80 Absolute Eosinophils (0.0-0.7) 10^3/uL 0.59 Absolute Basophils (0.0-0.2) 10^3/uL 0.05 PT (9.1-11.1) sec 10.5 INR (0.9-1.1) 1.0 APTT (23.6-32.8) sec 27.3 Sodium (136-145) mmol/L 141 Potassium (3.5-5.1) mmol/L 3.6 Chloride (98-107) mmol/L 103 Carbon Dioxide (21.0-32.0) mmol/L 31.2 Anion Gap (3-11) mmol/L 6.8 BUN (7-18) mg/dL 13 Creatinine (0.55-1.02) mg/dL 0.8 Est GFR (CKD-EPI 2020) (mL/min/1.73m2) 80.71 Glucose (74-106) mg/dL 101 Calcium (8.5-10.1) mg/dL 9.0 Total Bilirubin (0.2-1.0) mg/dL 0.98 AST (15-37) U/L 19 ALT (14-59) U/L 20 Alkaline Phosphatase (46-116) U/L 82 Troponin I (< or =60) ng/L < 50 NT-Pro-B Natriuret Pep (<300) pg/mL 104 Total Protein (6.4-8.2) g/dL 7.8 Albumin (3.4-5.0) g/dL 2.7 L COVID-19 Source Nasopharynx SARS-CoV-2 (PCR) (Negative) Negative Influenza Type A (PCR) (Negative) Negative Influenza Type B (PCR) (Negative) Negative RSV (PCR) (Negative) Negative ABO/Rh O Positive Antibody Screen POSITIVE Antibody Identification Anti-Fyb Anti-K Range/Units 04/11/24 01:28 WBC (4.4-10.8) 10^3/uL RBC (3.93-5.22) 10^6/uL Hgb (11.2-15.7) g/dL Hct (36.0-46.0) % MCV (80-95) fL MCH (27.0-33.0) pg MCHC (32.0-36.0) % RDW (11.7-14.6) % Plt Count (130-400) 10^3/uL MPV (8.0-11.0) fL Immature Gran % % Neutrophils % % Lymphocytes % % Monocytes % % Eosinophils % % Basophils % % Nucleated RBC % (0.0-0.3) % Absolute Neutrophils (1.2-6.7) 10^3/uL Absolute Lymphocytes (1.2-3.4) 10^3/uL Absolute Monocytes (0.1-0.8) 10^3/uL Absolute Eosinophils (0.0-0.7) 10^3/uL Absolute Basophils (0.0-0.2) 10^3/uL PT (9.1-11.1) sec INR (0.9-1.1) APTT (23.6-32.8) sec Sodium (136-145) mmol/L Potassium (3.5-5.1) mmol/L Chloride (98-107) mmol/L Carbon Dioxide (21.0-32.0) mmol/L Anion Gap (3-11) mmol/L BUN (7-18) mg/dL Creatinine (0.55-1.02) mg/dL Est GFR (CKD-EPI 2020) (mL/min/1.73m2) Glucose (74-106) mg/dL Calcium (8.5-10.1) mg/dL Total Bilirubin (0.2-1.0) mg/dL AST (15-37) U/L ALT (14-59) U/L Alkaline Phosphatase (46-116) U/L Troponin I (< or =60) ng/L < 50 NT-Pro-B Natriuret Pep (<300) pg/mL Total Protein (6.4-8.2) g/dL Albumin (3.4-5.0) g/dL COVID-19 Source SARS-CoV-2 (PCR) (Negative) Influenza Type A (PCR) (Negative) Influenza Type B (PCR) (Negative) RSV (PCR) (Negative) ABO/Rh Antibody Screen Antibody Identification Quality:SDOH Health Related Social Needs: No Data to Display PFSH All Active Problems (Updated 04/11/24 @ 03:04 by Vianca Wolf MD) Pneumonia (Acute) Abnormal vaginal bleeding (Acute) Acute and chronic respiratory failure with hypoxia (Acute) Laceration of dobson (Acute) GERD (gastroesophageal reflux disease) (Chronic) had negative barium esophagram in 11/2022. Anxiety (Chronic) Venous stasis dermatitis (Acute) Lymphedema (Acute) Chronic obstructive lung disease (Chronic) Quit smoking 2010. PFTs 09/2012 showed an FEV1 of 60% with improvement to 80% with bronchodilator, thought to be severe restrictive disease. Chronic headaches (Chronic) Recent Neurology consult for possible papilledema. Urinary incontinence (Chronic) On Detrol Recurrent UTI (Chronic) Right ventricular dysfunction (Chronic) Knee pain, bilateral (Chronic 07/23/14) s/p bilat TKR (left infected with mult surg and decreased mobility) Morbid obesity (Acute 04/05/13) Sensorineural hearing loss, bilateral (Chronic 08/29/13) Advance directive on file (Acute) Low back pain with sciatica (Chronic 05/03/14) [place] [facility] [place] Varicose veins of lower extremity (Chronic) Depression (Chronic) Grief at loss of child (Acute) Chronic respiratory failure with hypoxia and hypercapnia (Chronic) home BiPap Status post total bilateral knee replacement (Acute) Sprain of scapholunate ligament (Acute 03/21/19) DAVID (obstructive sleep apnea) (Chronic) on BiPap Hyperglycemia (Acute) Mixed conductive and sensorineural hearing loss of both ears (Acute) Right carpal tunnel syndrome (Acute) Arthritis of right hand (Acute) Impingement of right ulnar nerve (Acute) Dermoid cyst of neck (Acute) Hypothyroidism (Chronic) Microcalcifications of the breast (Acute) Neuropathy of left hand (Acute) Neuropathy of right hand (Acute) Bilateral carpal tunnel syndrome (Acute) Medical History Hx pulmonary embolism (~2015) treated with lovenox x 3 months Surgical History Status post thyroidectomy History of fasciotomy History of Surgical Procedure a. Right and left toal knee replacements. b. Left knee has been repeatedly operated on with slava surgies, three replacements. Replacement of total knee joint Bilateral; left-became [id number] surgeries Fasciotomy, Foot (~1996) LEFT Family History Mother Diabetes Personal history of malignant neoplasm LUNG Father Personal history of malignant neoplasm BRAIN Grandfather No problems noted. Grandfather No problems noted. Grandmother No problems noted. Grandmother No problems noted. Social History Smoking/Tobacco Use Status: Former Tobacco Use tobacco type: cigarettes Quit Date: 01/21/21 Second Hand Exposure: Yes Smoking risk assessment performed?: Yes Alcohol Intake: never Drug use: Never Substance use type: does not use Counseling given: No Housing: apartment Communication Needs: Hard of Hearing and Corrective Lenses Pets and animals: Yes Pets and animals: cat(s) Sexually active: Yes Current gender identity: female What is your relationship status?: never How often do you talk on the phone with friends or family?: decline to answer How often do you get together with friends or relatives?: decline to answer How often do you attend spiritism or yazidi services?: decline to answer Do you belong to any clubs or organized social groups?: no Panel score (0-1 are the most socially isolated patients): 0 Seatbelt use: never Do you feel safe at home: Yes Do you feel safe in your relationship?: Yes
--- NOTE | 2024-04-10 23:22 | DI.VRAD_ITS ---
PROCEDURE INFORMATION: Exam: XR Chest Exam date and time: 04/10/2024 10:44 PM Age: 68 years old Clinical indication: Wheezing and other: Increased o2 requirements; Patient HX: Wheeze, increased o2 requirement TECHNIQUE: Imaging protocol: Radiologic exam of the chest. Views: 1 view. COMPARISON: CT CHEST PE CTA 02/27/2024 12:26 PM FINDINGS: Lungs: There is pulmonary venous congestion. Focal locally consolidative changes left lower lobe lung possibility of pneumonia cannot be excluded. There is diffuse interstitial edema. Underlying inflammatory or infectious process not excluded. Pleural spaces: There are no definitive pleural effusions. No evidence of pneumothorax. Heart/Mediastinum: The heart is enlarged. There is prominence of the mediastinum. Bones/joints: The skeletal structures and soft tissues show no evidence of fracture or other acute processes. Soft tissues: The soft tissues of the extrathoracic region are unremarkable. IMPRESSION: 1. Focal locally consolidative changes left lower lobe lung possibility of pneumonia cannot be excluded. 2. Probable congestive heart failure. Underlying inflammatory or infectious process not excluded. Dictated and Authenticated by: Shiv Carney MD. Ordering:MARY Coley MD
[2024-04-10] MEDS: cefTRIAXone 1 GM/50 ML BAG IVPB (23:30)
[2024-04-10] MEDS: Albuterol/Ipratropium 3 ML UPD VIAL UPD (23:30)
[2024-04-10 23:33] LABS: Abs Immature Grans 0.02 10^3/uL (0.0-0.06); Absolute Basophil Count 0.05 10^3/uL (0.0-0.2); Absolute Eosinophil Count 0.59 10^3/uL (0.0-0.7); Absolute Lymphocyte Count 1.89 10^3/uL (1.2-3.4); Absolute Neutrophil Count 4.98 10^3/uL (1.2-6.7); Basophils % 0.6 %; Eosinophils % 7.1 %; HCT 41.1 % (36.0-46.0); HGB 13.2 g/dL (11.2-15.7); Immature Grans % 0.2 %; Lymphocytes % 22.7 %; MCH 28.9 pg (27.0-33.0); MCHC 32.1 % (32.0-36.0); MCV 90 fL (80-95); MPV 10.5 fL (8.0-11.0); Monocytes % 9.6 %; Neutrophils % 59.8 %; Platelet Count 286 10^3/uL (130-400); RBC 4.56 10^6/uL (3.93-5.22); RDW 14.5 % (11.7-14.6); RDW-SD 47.9 fL; WBC 8.33 10^3/uL (4.4-10.8)
[2024-04-10 23:45] LABS: PTT Activated 27.3 sec (23.6-32.8); Prothrombin Time 10.5 sec (9.1-11.1)
[2024-04-10 23:51] LABS: ALT 20 U/L (14-59); AST 19 U/L (15-37); Albumin 2.7 g/dL (3.4-5.0); Alkaline Phosphatase 82 U/L (46-116); Anion Gap 6.8 mmol/L (3-11); BUN 13 mg/dL (7-18); Bilirubin, Total 0.98 mg/dL (0.2-1.0); CO2 31.2 mmol/L (21.0-32.0); CREATININE 0.8 mg/dL (0.55-1.02); Chloride 103 mmol/L (98-107); Estimated GFR 80.71 (mL/min/1.73m2); Glucose 101 mg/dL (74-106); Potassium 3.6 mmol/L (3.5-5.1); Sodium 141 mmol/L (136-145); Total Protein 7.8 g/dL (6.4-8.2); Troponin I < 50 ng/L (< or =60)
[2024-04-10 23:54] LABS: NT-proBNP 104 pg/mL (<300)
[2024-04-11] VITALS (123 sets, daily range): BP systolic 109–144; BP diastolic 36–108; PULSE 70–93; RESP 14–31; TEMP 36.8–37.2; O2SAT 85–100
--- NOTE | 2024-04-11 | DI.US_ITS ---
Exam(s) US PELVIS TRANSVAGINAL EXAM: US PELVIS TRANSVAGINAL CLINICAL HISTORY: Post menopausal bleeding TECHNIQUE: Ultrasound of the pelvis was performed both transabdominal and transvaginal. COMPARISON: None FINDINGS: UTERUS: There are no obvious uterine fibroids. Main finding here is an abnormally thickened endometr ium which measures up to 3.5 cm (35 mm). Small nabothian cysts are seen in the upper cervix. OVARIES: Both ovaries were not able to be identified CUL-DE-SAC: No free fluid evident. IMPRESSION: 1. Significantly thickened endometrium lining in the uterus. Consistent with endometrial hyperplasia or neoplastic. 2. Both ovaries were not able to be identified. 3. No free fluid evident in the adnexal regions and cul-de-sac. DATA REPOSITORY:
[2024-04-11 00:09] LABS: COVID-19 PCR Negative (Negative); Influenza A PCR Negative (Negative); Influenza B PCR Negative (Negative); RSV PCR Negative (Negative)
[2024-04-11 00:18] LABS: Source Nasopharynx
[2024-04-11] MEDS: Albuterol/Ipratropium 3 ML UPD VIAL UPD ×2 (00:46)
[2024-04-11] MEDS: Norethindrone 5 MG TAB 10 MG PO ×3 (01:03→19:39)
[2024-04-11] MEDS: methylPREDNISolone SUCC 125 MG VIAL IVP (01:36)
[2024-04-11 02:03] LABS: Troponin I < 50 ng/L (< or =60)
[2024-04-11 03:29] LABS: BE (Venous) 5 mmol/L (-2-3); HCO3 (Venous) 31 mmol/L (23-28); O2 Sat (Venous) 93 %; TCO2 (Venous) 29 mmol/L (24-29); pCO2 (Venous) 57 mmHg (41-51); pH (Venous) 7.34 (7.31-7.41); pO2 (Venous) 68 mmHg
[2024-04-11 03:31] LABS: HCT 36.9 % (36.0-46.0); HGB 11.9 g/dL (11.2-15.7); MCH 29.1 pg (27.0-33.0); MCHC 32.2 % (32.0-36.0); MCV 90 fL (80-95); MPV 10.3 fL (8.0-11.0); Platelet Count 250 10^3/uL (130-400); RBC 4.09 10^6/uL (3.93-5.22); RDW 14.5 % (11.7-14.6); RDW-SD 47.8 fL; WBC 10.08 10^3/uL (4.4-10.8)
[2024-04-11 06:17] LABS: BE (Venous) 5 mmol/L (-2-3); HCO3 (Venous) 31 mmol/L (23-28); O2 Sat (Venous) 84 %; TCO2 (Venous) 29 mmol/L (24-29); pCO2 (Venous) 60 mmHg (41-51); pH (Venous) 7.33 (7.31-7.41); pO2 (Venous) 51 mmHg
--- NOTE | 2024-04-11 07:03 | W.PM.HP.N ---
Date of service: 04/11/24 Time of Service: 07:03 Assessment and Plan Assessment and plan (1) Community acquired pneumonia: Start date: 04/11/24 Status: Acute Assessment and plan: This is a 68-year-old lady who reported to the ED for what was discovered as postmenopausal vaginal bleeding without acute hemodynamic instability or anemia. [employer] was consulted and will be seeing the patient as an inpatient but also follow-up with her outpatient for evaluation workup. She has been started on oral hormones to help stop her bleeding. She was eventually discovered to have a left lower lobe pneumonia with increasing hypoxia requiring increased oxygen with patient chronically on 300/min per nasal cannula of O2 requiring more than 6 L/min. Cannula in the ED. She also wears BiPAP each night and was off BiPAP evening and [employer] team member of evaluation in the ED. Chest x-ray did reveal a lower lobe infiltrate and patient was initiated on IV Rocephin and Zithromax for community-acquired pneumonia. X-ray also shows a point vascular congestion but the BNP was normal echocardiogram is planned. Patient will be admitted for the above treatments and follow-up. She will need rehabilitation before returning home being severely compromised due to her obesity and essentially nonweightbearing left lower extremity. She is a full code. Qualifiers: Laterality: left Lung location: lower lobe of lung Qualified Code(s): J18.9 - Pneumonia, unspecified organism (2) COPD (chronic obstructive pulmonary disease): Start date: 04/11/24 Status: Acute Assessment and plan: Increased nebulizer treatments and IV Solu-Medrol will be continued to be weaned to prednisone pulse therapy the patient is stabilizing. Treat pneumonia as above. Qualifiers: COPD type: COPD with acute exacerbation Qualified Code(s): J44.1 - Chronic obstructive pulmonary disease with (acute) exacerbation (3) Abnormal vaginal bleeding: Start date: 04/11/24 Status: Acute Assessment and plan: Recent onset with patient off aspirin and now off Eliquis though she did take it for 1 week in early February 2024. She was in consultation with treatment inpatient and outpatient has directed. Monitor for blood loss anemia. (4) Lymphedema: Status: Chronic Assessment and plan: Continue outpatient therapy and weight loss would be ideal but unlikely. Continue outpatient skin care and physical therapy with occupational therapy as needed. Increase home services as needed. (5) DAVID (obstructive sleep apnea): Status: Chronic Assessment and plan: Continue BiPAP on home settings. (6) Hypothyroidism: Status: Chronic Assessment and plan: Continue supplement and follow-up TSH. Patient is status post thyroidectomy. Qualifiers: Hypothyroidism type: postoperative Qualified Code(s): E89.0 - Postprocedural hypothyroidism History of Present Illness History of Present Illness Chief Complaint: Vaginal bleeding, increased cough with chills Narrative: This is a 68-year-old female patient who presented to the ED via EMS for bradycardia which was thought to be from below and eventually was investigated as vaginal bleeding postmenopausal woman. She was not anemic and had no hemodynamic changes or symptoms advised being very sedentary having morbid obesity with severe lymphedema of the lower extremities and self left knee replacement not able her to walk normally. She was more short of breath he did have some chills with no fever. Her oxygen needs which are chronic did increase during her ED visit with a pulse ox of breath in the 80% range requiring her O2 supplementation to be turned up to 6 L/min nasal cannula. Patient does wear BiPAP nightly. Imaging did reveal possible left lower lobe pneumonia patient was initiated on antibiotics treatment for community-acquired pneumonia. There also was a question of vascular congestion and patient had a normal BNP but would be having an echocardiogram. She is on daily Lasix. Was a question of a pulmonary embolus with increased D-dimer in early February 2024 with patient initiated on Eliquis prescription for 1 month with 5 refills at that time. CTA of the chest was accomplished within a week and she discontinued the Eliquis at that time. Patient states she has been off aspirin and Eliquis over this last month. She has not had any bloody stools. Patient appears chronically ill with multiple comorbid diseases but is a full code. Review of Systems Narrative: 13 point review of systems otherwise unrevealing or stable with patient chronically disabled by left knee and obesity. [facility] All Active Problems (Updated 04/11/24 @ 07:49 by TONY SINGH) COPD (chronic obstructive pulmonary disease) (Acute) Community acquired pneumonia (Acute) Pneumonia (Acute) Abnormal vaginal bleeding (Acute) Acute and chronic respiratory failure with hypoxia (Acute) Laceration of dobson (Acute) GERD (gastroesophageal reflux disease) (Chronic) had negative barium esophagram in 11/2022. Anxiety (Chronic) Venous stasis dermatitis (Acute) Lymphedema (Chronic) Chronic obstructive lung disease (Chronic) Quit smoking 2010. PFTs 09/2012 showed an FEV1 of 60% with improvement to 80% with bronchodilator, thought to be severe restrictive disease. Chronic headaches (Chronic) Recent Neurology consult for possible papilledema. Urinary incontinence (Chronic) On Detrol Recurrent UTI (Chronic) Right ventricular dysfunction (Chronic) Knee pain, bilateral (Chronic 07/23/14) s/p bilat TKR (left infected with mult surg and decreased mobility) Morbid obesity (Acute 04/05/13) Sensorineural hearing loss, bilateral (Chronic 08/29/13) Advance directive on file (Acute) Low back pain with sciatica (Chronic 05/03/14) CT at [facility] [place] L34 spinal stenosis Varicose veins of lower extremity (Chronic) Depression (Chronic) Grief at loss of child (Acute) Chronic respiratory failure with hypoxia and hypercapnia (Chronic) home BiPap Status post total bilateral knee replacement (Acute) Sprain of scapholunate ligament (Acute 03/21/19) DAVID (obstructive sleep apnea) (Chronic) on BiPap Hyperglycemia (Acute) Mixed conductive and sensorineural hearing loss of both ears (Acute) Right carpal tunnel syndrome (Acute) Arthritis of right hand (Acute) Impingement of right ulnar nerve (Acute) Dermoid cyst of neck (Acute) Hypothyroidism (Chronic) Microcalcifications of the breast (Acute) Neuropathy of left hand (Acute) Neuropathy of right hand (Acute) Bilateral carpal tunnel syndrome (Acute) Medical History Hx pulmonary embolism (~2015) treated with lovenox x 3 months Surgical History Status post thyroidectomy History of fasciotomy History of Surgical Procedure a. Right and left toal knee replacements. b. Left knee has been repeatedly operated on with slava surgies, three replacements. Replacement of total knee joint Bilateral; left-became [id number] surgeries Fasciotomy, Foot (~1996) LEFT Family History Mother Diabetes Personal history of malignant neoplasm LUNG Father Personal history of malignant neoplasm BRAIN Grandfather No problems noted. Grandfather No problems noted. Grandmother No problems noted. Grandmother No problems noted. Social History (Reviewed 08/28/24 @ 07:03 by Sunny Cardoza Smoking/Tobacco Use Status: Former Tobacco Use tobacco type: cigarettes Quit Date: 01/21/21 Second Hand Exposure: Yes Smoking risk assessment performed?: Yes Alcohol Intake: never Drug use: Never Substance use type: does not use Counseling given: No Housing: apartment Communication Needs: Hard of Hearing and Corrective Lenses Pets and animals: Yes Pets and animals: cat(s) Sexually active: Yes Current gender identity: female What is your relationship status?: never How often do you talk on the phone with friends or family?: decline to answer How often do you get together with friends or relatives?: decline to answer How often do you attend christian or adventism services?: decline to answer Do you belong to any clubs or organized social groups?: no Panel score (0-1 are the most socially isolated patients): 0 Seatbelt use: never Do you feel safe at home: Yes Do you feel safe in your relationship?: Yes Meds Allergies and Home Medications Allergies Allergy/AdvReac Type Severity Reaction Status Date / Time hydrocodone Allergy Severe ITCHING Verified 04/10/24 22:38 morphine Allergy Mild PRURITIS Verified 04/10/24 22:38 oxycodone Allergy Mild ITCHING Verified 04/10/24 22:38 Home Medications ?Medication ?Instructions ?Recorded ?Confirmed ?Type ascorbic acid (vitamin C) 1,000 mg 1,000 mg PO DAILY 11/25/12 04/10/24 History tablet inhalational spacing device ##1 12/21/13 04/10/24 History (Aerochamber Mini) Bipap 5 l IN DIRECTED 07/23/14 04/10/24 History aspirin 325 mg tablet 325 mg PO DAILY #0 tab-caps 06/22/15 04/10/24 Rx albuterol sulfate 90 mcg/actuation 1 - 2 puff inhalation Q6H PRN ##1 06/06/20 04/10/24 Rx aerosol inhaler (ProAir HFA) betamethasone, augmented 0.05 % 1 applic topical BID PRN allergic 06/20/21 04/10/24 Rx lotion reaction #60 mL ipratropium 0.5 mg-albuterol 3 mg 3 ml inhalation QID COPD 10/16/22 04/10/24 Rx (2.5 mg base)/3 mL nebulization exacerbation/wheezing #180 mL soln pantoprazole 20 mg tablet,delayed 20 mg PO DAILY #90 tabs 08/04/23 04/10/24 Rx release sertraline 50 mg tablet 50 mg PO DAILY #90 tabs 10/13/23 04/10/24 Rx alclometasone 0.05 % topical cream 1 applic topical BID PRN itching 01/25/24 04/10/24 Rx #45 grams ketoconazole 2 % topical cream 1 applic topical BID PRN facial 01/25/24 04/10/24 Rx rash #60 grams apixaban 5 mg tablet (Eliquis) 5 mg PO BID #60 tabs 02/14/24 04/10/24 Rx nystatin 100,000 unit/gram topical 1 applic topical BID PRN 02/14/24 04/10/24 Rx powder intertrigo #30 grams levothyroxine 200 mcg tablet 200 mcg PO DAILY #90 tabs 02/15/24 04/10/24 Rx furosemide 40 mg tablet 80 mg (2 x 40 mg) PO DAILY #180 03/13/24 04/10/24 Rx tabs oxygen 3 l intranasal DIRECTED 04/02/24 04/10/24 History Exam Narrative Exam Narrative: General: Patient appears older than stated age, morbidly obese with severe lymphedema which is chronic with hard edema and folds over her lower extremities with chronic skin changes. She has well-healed scars over both knees with the right being more mobile left knee fairly immobile and ankle inward flexion the patient not walking only using wheelchair. She states she does transfer to wheelchair in the home with her . She is in no acute distress and was open and snoring when approached. HEENT: Normocephalic with coarsened facial features. Eyes appear protuberant with pupils equal and reactive light symmetrically, extraocular move intact and sclera anicteric. Oropharynx with dry mucosaand poor dentition. Neck: Supple without JVD. Back: Kyphotic without CVA tenderness. Lungs: Bronchovesicular breath sounds diffusely with decreased aeration of both bases and inspiratory coarse crackles over left more than right base. No expiratory wheeze but slight increased expiratory phase. Poor air movement overall. Patient respirations are decreased by positioning and morbid obesity. Breast: Exam deferred. Heart: Regular rate and rhythm with no murmurs or gallops appreciated. Distant heart sounds. Abdomen: Morbidly obese and no guarding or focal tenderness. No rebound. No palpable hepatosplenomegaly. Bowel sounds are positive in all quadrants. Large pannus. Genitalia/rectal: Exam deferred. Extremities: As described above, hard, 4+ edema which is chronic with folds and chronic skin changes with lichenification and skin wounds but no open sores noted over lower extremities. Well-healed scars over both knees. Marked decrease movement of lower extremities. Fair capillary refill. Skin: Pale, warm and dry with coarsened, rough texture of the lower extremity especially but no open ulcerations. Neuro: Cranial nerves II through XII grossly intact though right eye appears to wander laterally when patient first awakens. No focalizing motor deficits. Generalized weakness especially of her left lower extremity with chronic pain from failed knee replacement. No tremor. Psych: Flattened affect with depressed mood. No abnormal thought processes. Remote and recent memory appear to be grossly intact. Results Imaging Imaging Studies: Exam: XR Chest Exam date and time: 04/10/2024 10:44 PM Age: 68 years old Clinical indication: Wheezing and other: Increased o2 requirements; Patient HX: Wheeze, increased o2 requirement TECHNIQUE: Imaging protocol: Radiologic exam of the chest. Views: 1 view. COMPARISON: CT CHEST PE CTA 02/27/2024 12:26 PM FINDINGS: Lungs: There is pulmonary venous congestion. Focal locally consolidative changes left lower lobe lung possibility of pneumonia cannot be excluded. There is diffuse interstitial edema. Underlying inflammatory or infectious process not excluded. Pleural spaces: There are no definitive pleural effusions. No evidence of pneumothorax. Heart/Mediastinum: The heart is enlarged. There is prominence of the mediastinum. Bones/joints: The skeletal structures and soft tissues show no evidence of fracture or other acute processes. Soft tissues: The soft tissues of the extrathoracic region are unremarkable. IMPRESSION: 1. Focal locally consolidative changes left lower lobe lung possibility of pneumonia cannot be excluded. 2. Probable congestive heart failure. Underlying inflammatory or infectious process not excluded. Labs 04/11/24 03:24 04/10/24 23:21 Labs: Laboratory Results - last 24 hr 04/10/24 04/10/24 04/10/24 23:05 23:21 23:21 WBC 8.33 RBC 4.56 Hgb 13.2 Hct 41.1 MCV 90 MCH 28.9 MCHC 32.1 RDW 14.5 Plt Count 286 MPV 10.5 Immature Gran % 0.2 Neutrophils % 59.8 Lymphocytes % 22.7 Monocytes % 9.6 Eosinophils % 7.1 Basophils % 0.6 Nucleated RBC % 0.0 Absolute Neutrophils 4.98 Absolute Lymphocytes 1.89 Absolute Monocytes 0.80 Absolute Eosinophils 0.59 Absolute Basophils 0.05 PT 10.5 INR 1.0 APTT 27.3 VBG pH VBG pCO2 VBG pO2 VBG HCO3 VBG Total CO2 VBG O2 Saturation VBG Base Excess Sodium 141 Potassium 3.6 Chloride 103 Carbon Dioxide 31.2 Anion Gap 6.8 BUN 13 Creatinine 0.8 Est GFR (CKD-EPI 2020) 80.71 Glucose 101 Calcium 9.0 Total Bilirubin 0.98 AST 19 ALT 20 Alkaline Phosphatase 82 Troponin I < 50 NT-Pro-B Natriuret Pep 104 Total Protein 7.8 Albumin 2.7 L COVID-19 Source Nasopharynx SARS-CoV-2 (PCR) Negative Influenza Type A (PCR) Negative Influenza Type B (PCR) Negative RSV (PCR) Negative ABO/Rh O Positive Antibody Screen POSITIVE Antibody Identification Anti-Fyb Anti-K 04/11/24 04/11/24 04/11/24 01:28 03:24 06:13 WBC 10.08 RBC 4.09 Hgb 11.9 Hct 36.9 MCV 90 MCH 29.1 MCHC 32.2 RDW 14.5 Plt Count 250 MPV 10.3 Immature Gran % Neutrophils % Lymphocytes % Monocytes % Eosinophils % Basophils % Nucleated RBC % Absolute Neutrophils Absolute Lymphocytes Absolute Monocytes Absolute Eosinophils Absolute Basophils PT INR APTT VBG pH 7.34 7.33 VBG pCO2 57 H 60 H VBG pO2 68 51 VBG HCO3 31 H 31 H VBG Total CO2 29 29 VBG O2 Saturation 93 84 VBG Base Excess 5 H 5 H Sodium Potassium Chloride Carbon Dioxide Anion Gap BUN Creatinine Est GFR (CKD-EPI 2020) Glucose Calcium Total Bilirubin AST ALT Alkaline Phosphatase Troponin I < 50 NT-Pro-B Natriuret Pep Total Protein Albumin COVID-19 Source SARS-CoV-2 (PCR) Influenza Type A (PCR) Influenza Type B (PCR) RSV (PCR) ABO/Rh Antibody Screen Antibody Identification Last Vital Signs Temp 37.2 C 04/11/24 06:20 Pulse 83 04/11/24 06:20 Resp 26 H 04/11/24 06:20 BP 144/83 H 04/11/24 06:20 Pulse Ox 94 04/11/24 06:20 Time Spent Time spent with Patient: >75 minutes Time was spent: preparing to see the patient(eg.review tests), obtaining and/or reviewing separately otained hiistory, ordering medications,tests, procedures, referring, communicating with other health careers counsellor, indepentently interpreting results, counseling the patient and care coordination
--- NOTE | 2024-04-11 07:36 | W.PC.ACHO ---
Registration Status: Primary Language: Preferred Language: ED Information & Data Chief Complaint GI Bleed 04/11/24 01:32 Chief Complaint GI Bleed 04/10/24 22:40 Triage Note Pt c/o bright red blood. EMS 04/10/24 22:22 witnessed large clot. EBL 200 mL per EMS. Pt states she believes this to be coming from vagina. Has not mensurated for years. Recent blood thinners, stopped 1.5 months ago. LBM today. No NV. Medical / Surgical History (Last Reviewed 04/11/24 @ 07:03 by Sunny Medina) Hx pulmonary embolism (~2015) (Last Reviewed 04/11/24 @ 07:03 by Sunny Medina) Status post thyroidectomy History of fasciotomy History of Surgical Procedure Replacement of total knee joint Fasciotomy, Foot (~1996) Most Recent Vital Signs Temperature 37.2 C 04/11/24 06:20 Temperature Source Temporal Artery Scan 04/11/24 06:20 Pulse 83 04/11/24 06:20 Pulse Rhythm Regular 04/11/24 06:20 Pulse Strength Normal 04/11/24 06:20 Pulse 84 04/11/24 03:32 Respiratory Rate 26 H 04/11/24 06:20 Respiratory Effort Short of Breath 04/11/24 06:20 Respiratory Depth Normal 04/11/24 06:20 Blood Pressure 144/83 H 04/11/24 06:20 Blood Pressure Mean 103 04/11/24 06:20 Blood Pressure Position Sitting 04/11/24 06:20 Pulse Oximetry 94 04/11/24 06:20 Oxygen Delivery Method Nasal Cannula 04/11/24 06:20 Oxygen Flow Rate 5 04/11/24 06:20 Pain Level 0 04/10/24 22:22 Allergies hydrocodone Allergy (Severe, Verified 04/10/24 22:38) ITCHING morphine Allergy (Mild, Verified 04/10/24 22:38) PRURITIS oxycodone Allergy (Mild, Verified 04/10/24 22:38) ITCHING IV IV Catheter Type [Right Saline Lock Forearm] IV Catheter Gauge [Right 18 Forearm] Diagnostics 04/11/24 04/11/24 04/11/24 Range/Units 07:11 06:13 03:24 WBC 10.08 (4.4-10.8) 10^3/uL RBC 4.09 (3.93-5.22) 10^6/uL Hgb 11.9 (11.2-15.7) g/dL Hct 36.9 (36.0-46.0) % MCV 90 (80-95) fL MCH 29.1 (27.0-33.0) pg MCHC 32.2 (32.0-36.0) % RDW 14.5 (11.7-14.6) % Plt Count 250 (130-400) 10^3/uL MPV 10.3 (8.0-11.0) fL Immature Gran % % Neutrophils % % Lymphocytes % % Monocytes % % Eosinophils % % Basophils % % Nucleated RBC % (0.0-0.3) % Absolute Neutrophils (1.2-6.7) 10^3/uL Absolute Lymphocytes (1.2-3.4) 10^3/uL Absolute Monocytes (0.1-0.8) 10^3/uL Absolute Eosinophils (0.0-0.7) 10^3/uL Absolute Basophils (0.0-0.2) 10^3/uL PT (9.1-11.1) sec INR (0.9-1.1) APTT (23.6-32.8) sec VBG pH 7.33 7.34 (7.31-7.41) VBG pCO2 60 H 57 H (41-51) mmHg VBG pO2 51 68 mmHg VBG HCO3 31 H 31 H (23-28) mmol/L VBG Total CO2 29 29 (24-29) mmol/L VBG O2 Saturation 84 93 % VBG Base Excess 5 H 5 H (-2-3) mmol/L Sodium (136-145) mmol/L Potassium (3.5-5.1) mmol/L Chloride (98-107) mmol/L Carbon Dioxide (21.0-32.0) mmol/L Anion Gap (3-11) mmol/L BUN (7-18) mg/dL Creatinine (0.55-1.02) mg/dL Est GFR (CKD-EPI 2020) (mL/min/1.73m2) Glucose (74-106) mg/dL Calcium (8.5-10.1) mg/dL Total Bilirubin (0.2-1.0) mg/dL AST (15-37) U/L ALT (14-59) U/L Alkaline Phosphatase (46-116) U/L Troponin I (< or =60) ng/L NT-Pro-B Natriuret Pep (<300) pg/mL Total Protein (6.4-8.2) g/dL Albumin (3.4-5.0) g/dL TSH Pending COVID-19 Source SARS-CoV-2 (PCR) (Negative) Influenza Type A (PCR) (Negative) Influenza Type B (PCR) (Negative) RSV (PCR) (Negative) ABO/Rh Antibody Screen Antibody Identification Antibody ID Referred 04/11/24 04/10/24 04/10/24 Range/Units 01:28 23:21 23:21 WBC 8.33 (4.4-10.8) 10^3/uL RBC 4.56 (3.93-5.22) 10^6/uL Hgb 13.2 (11.2-15.7) g/dL Hct 41.1 (36.0-46.0) % MCV 90 (80-95) fL MCH 28.9 (27.0-33.0) pg MCHC 32.1 (32.0-36.0) % RDW 14.5 (11.7-14.6) % Plt Count 286 (130-400) 10^3/uL MPV 10.5 (8.0-11.0) fL Immature Gran % 0.2 % Neutrophils % 59.8 % Lymphocytes % 22.7 % Monocytes % 9.6 % Eosinophils % 7.1 % Basophils % 0.6 % Nucleated RBC % 0.0 (0.0-0.3) % Absolute Neutrophils 4.98 (1.2-6.7) 10^3/uL Absolute Lymphocytes 1.89 (1.2-3.4) 10^3/uL Absolute Monocytes 0.80 (0.1-0.8) 10^3/uL Absolute Eosinophils 0.59 (0.0-0.7) 10^3/uL Absolute Basophils 0.05 (0.0-0.2) 10^3/uL PT 10.5 (9.1-11.1) sec INR 1.0 (0.9-1.1) APTT 27.3 (23.6-32.8) sec VBG pH (7.31-7.41) VBG pCO2 (41-51) mmHg VBG pO2 mmHg VBG HCO3 (23-28) mmol/L VBG Total CO2 (24-29) mmol/L VBG O2 Saturation % VBG Base Excess (-2-3) mmol/L Sodium 141 (136-145) mmol/L Potassium 3.6 (3.5-5.1) mmol/L Chloride 103 (98-107) mmol/L Carbon Dioxide 31.2 (21.0-32.0) mmol/L Anion Gap 6.8 (3-11) mmol/L BUN 13 (7-18) mg/dL Creatinine 0.8 (0.55-1.02) mg/dL Est GFR (CKD-EPI 2020) 80.71 (mL/min/1.73m2) Glucose 101 (74-106) mg/dL Calcium 9.0 (8.5-10.1) mg/dL Total Bilirubin 0.98 (0.2-1.0) mg/dL AST 19 (15-37) U/L ALT 20 (14-59) U/L Alkaline Phosphatase 82 (46-116) U/L Troponin I < 50 < 50 (< or =60) ng/L NT-Pro-B Natriuret Pep 104 (<300) pg/mL Total Protein 7.8 (6.4-8.2) g/dL Albumin 2.7 L (3.4-5.0) g/dL TSH COVID-19 Source SARS-CoV-2 (PCR) (Negative) Influenza Type A (PCR) (Negative) Influenza Type B (PCR) (Negative) RSV (PCR) (Negative) ABO/Rh O Positive Antibody Screen POSITIVE Antibody Identification Anti-K Anti-Fyb Antibody ID Referred Pending 04/10/24 Range/Units 23:05 WBC (4.4-10.8) 10^3/uL RBC (3.93-5.22) 10^6/uL Hgb (11.2-15.7) g/dL Hct (36.0-46.0) % MCV (80-95) fL MCH (27.0-33.0) pg MCHC (32.0-36.0) % RDW (11.7-14.6) % Plt Count (130-400) 10^3/uL MPV (8.0-11.0) fL Immature Gran % % Neutrophils % % Lymphocytes % % Monocytes % % Eosinophils % % Basophils % % Nucleated RBC % (0.0-0.3) % Absolute Neutrophils (1.2-6.7) 10^3/uL Absolute Lymphocytes (1.2-3.4) 10^3/uL Absolute Monocytes (0.1-0.8) 10^3/uL Absolute Eosinophils (0.0-0.7) 10^3/uL Absolute Basophils (0.0-0.2) 10^3/uL PT (9.1-11.1) sec INR (0.9-1.1) APTT (23.6-32.8) sec VBG pH (7.31-7.41) VBG pCO2 (41-51) mmHg VBG pO2 mmHg VBG HCO3 (23-28) mmol/L VBG Total CO2 (24-29) mmol/L VBG O2 Saturation % VBG Base Excess (-2-3) mmol/L Sodium (136-145) mmol/L Potassium (3.5-5.1) mmol/L Chloride (98-107) mmol/L Carbon Dioxide (21.0-32.0) mmol/L Anion Gap (3-11) mmol/L BUN (7-18) mg/dL Creatinine (0.55-1.02) mg/dL Est GFR (CKD-EPI 2020) (mL/min/1.73m2) Glucose (74-106) mg/dL Calcium (8.5-10.1) mg/dL Total Bilirubin (0.2-1.0) mg/dL AST (15-37) U/L ALT (14-59) U/L Alkaline Phosphatase (46-116) U/L Troponin I (< or =60) ng/L NT-Pro-B Natriuret Pep (<300) pg/mL Total Protein (6.4-8.2) g/dL Albumin (3.4-5.0) g/dL TSH COVID-19 Source Nasopharynx SARS-CoV-2 (PCR) Negative (Negative) Influenza Type A (PCR) Negative (Negative) Influenza Type B (PCR) Negative (Negative) RSV (PCR) Negative (Negative) ABO/Rh Antibody Screen Antibody Identification Antibody ID Referred Intake and Output - 24 Hour Total 04/10/24 22:14 thru 04/11/24 00:06 Intake Total 50 Balance 50 Weight 194.7 kg Intake: IV 50 Falls Risk Assessment History of Falls No History 04/11/24 01:33 Contributing Factors No Factors,Impairments, 04/11/24 01:33 Incontinence Ambulatory Aids Uses ambulatory device 04/11/24 01:33 Tubes/Lines With any additional score 04/11/24 01:33 Gait Evaluation W/any additional score 04/11/24 01:33 Cognition No cognitive impairment 04/11/24 01:33 Fall Total Score 61 04/11/24 01:33 Level of Risk High Risk 04/11/24 01:33 Problems (Last Reviewed 04/11/24 @ 07:03 by Sunny Medina) COPD (chronic obstructive pulmonary disease) (Acute) Community acquired pneumonia (Acute) Abnormal vaginal bleeding (Acute) Lymphedema (Chronic) DAVID (obstructive sleep apnea) (Chronic) Hypothyroidism (Chronic) v v v v v v v v v Sending and/or Receiving Nurses: Please use comment section below to note any information pertinent to the patient hand-off not included above. Information / Comments: Report received from: Anay Brewster RN
[2024-04-11 09:06] LABS: TSH (W/Ref FT4) 2.25 uIU/mL (0.36-3.74)
[2024-04-11] MEDS: Ascorbic Acid 500 MG TAB 1000 MG PO (09:10)
[2024-04-11] MEDS: Furosemide 40 MG TAB 80 MG PO (09:12)
[2024-04-11] MEDS: Sertraline 50 MG TAB PO (09:12)
[2024-04-11] MEDS: Levothyroxine 100 MCG TAB 200 MCG PO (09:12)
[2024-04-11] MEDS: Pantoprazole 20 MG TABCR PO (09:12)
[2024-04-11] MEDS: Normal Saline Flush 10 ML SYR IVP ×2 (10:28→19:52)
[2024-04-11] MEDS: methylPREDNISolone SUCC 125 MG VIAL 60 MG IVP ×2 (10:29→19:39)
[2024-04-11] MEDS: AZITHROMYCIN 500 MG in Normal Saline 250 ML 250 MG IVPB (10:33)
--- NOTE | 2024-04-11 11:14 | GCONE_ITS ---
Date of service: 04/11/24 Time of Service: 11:14 Assessment and Plan Assessment and plan (1) Abnormal vaginal bleeding: Status: Acute Assessment and plan: Patient is a 68-year-old 6 para 4 with postmenopausal vaginal bleeding and thickened endometrium at 3.5 cm. She has a history of pulmonary embolism, morbid obesity, community-acquired pneumonia, chronic obstructive pulmonary disease, history of pulmonary embolism. She was initially seen and transported via EMS to the emergency department for her vaginal bleeding with her associated other comorbidities. In light of her bleeding, we cannot rule out endometrial pathology such as endometrial adenocarcinoma which given her endogenous estrogen, and morbid obesity, would be likely. We will stabilize her endometrium with Aygestin, starting 10 mg twice daily. We can increase to 20 mg twice daily or 20 mg every 8 hours if necessary. Her bleeding has significantly slowed. We had a lengthy conversation today regarding the possibility of uterine pathology. She is in no way a surgical candidate here at a critical access hospital. We did discuss the fact that she would need further evaluation and treatment in a tertiary care center such as [facility], most likely gynecologic oncology. In the interval, we will continue her progestational agent and monitor. All questions were answered to the best of my ability. (2) Morbid obesity: Status: Acute (3) Hx pulmonary embolism: (4) COPD (chronic obstructive pulmonary disease): Status: Acute Qualifiers: COPD type: COPD with acute exacerbation Qualified Code(s): J44.1 - Chronic obstructive pulmonary disease with (acute) exacerbation (5) Community acquired pneumonia: Status: Acute Qualifiers: Laterality: left Lung location: lower lobe of lung Qualified Code(s): J18.9 - Pneumonia, unspecified organism History of Present Illness History of Present Illness Chief Complaint: Vaginal bleeding Narrative: patient is a 68-year-old 6 para 4 who presented to the emergency department in the middle of the night last night with onset of vaginal bleeding. She stated that she had an episode of vaginal bleeding in January and then again yesterday had some spotting and when she got up to the commode of a peach. Passed a large clot. She describes this at is approximately the size she was initially seen and evaluated in the emergency department. She has significant number of comorbidities including morbid obesity with a BMI of 74 history of pulmonary embolism, marked lymphedema, nonhealing wound, new onset of community- acquired pneumonia, hypoxemia, gastroesophageal reflux disease, venous stasis dermatitis, COPD, bilateral hearing loss, depression. She was admitted to the medicine service for treatment of her pneumonia, and other medical related issues. In light of her vaginal bleeding, with her history of thromboembolic events, she is not a candidate for estrogen therapy. She was placed empirically on Aygestin, 10 mg to be taken twice daily. Consults Consult date: 04/11/24 Requesting physician: Sunny Medina Review of Systems All systems reviewed & are unremarkable except as noted in HPI and below Constitutional Constitutional: Reports as per HPI, Reports fatigue, Reports lethargy and Reports weakness Cardiovascular Cardiovascular: Reports as per HPI, Reports rapid heart rate, Reports dyspnea and Reports dyspnea on exertion Respiratory Respiratory: Reports dyspnea and Reports dyspnea on exertion Genitourinary Genitourinary: Reports as per HPI and Reports abnormal vaginal bleeding Neurologic Neurologic: Reports weakness Endocrine Endocrine: Reports fatigue PFSH All Active Problems (Updated 04/11/24 @ 07:49 by TONY SINGH) COPD (chronic obstructive pulmonary disease) (Acute) Community acquired pneumonia (Acute) Pneumonia (Acute) Abnormal vaginal bleeding (Acute) Acute and chronic respiratory failure with hypoxia (Acute) Laceration of dobson (Acute) GERD (gastroesophageal reflux disease) (Chronic) had negative barium esophagram in 11/2022. Anxiety (Chronic) Venous stasis dermatitis (Acute) Lymphedema (Chronic) Chronic obstructive lung disease (Chronic) Quit smoking 2010. PFTs 09/2012 showed an FEV1 of 60% with improvement to 80% with bronchodilator, thought to be severe restrictive disease. Chronic headaches (Chronic) Recent Neurology consult for possible papilledema. Urinary incontinence (Chronic) On Detrol Recurrent UTI (Chronic) Right ventricular dysfunction (Chronic) Knee pain, bilateral (Chronic 07/23/14) s/p bilat TKR (left infected with mult surg and decreased mobility) Morbid obesity (Acute 04/05/13) Sensorineural hearing loss, bilateral (Chronic 08/29/13) Advance directive on file (Acute) Low back pain with sciatica (Chronic 05/03/14) CT at [facility] [place] L34 spinal stenosis Varicose veins of lower extremity (Chronic) Depression (Chronic) Grief at loss of child (Acute) Chronic respiratory failure with hypoxia and hypercapnia (Chronic) home BiPap Status post total bilateral knee replacement (Acute) Sprain of scapholunate ligament (Acute 03/21/19) DAVID (obstructive sleep apnea) (Chronic) on BiPap Hyperglycemia (Acute) Mixed conductive and sensorineural hearing loss of both ears (Acute) Right carpal tunnel syndrome (Acute) Arthritis of right hand (Acute) Impingement of right ulnar nerve (Acute) Dermoid cyst of neck (Acute) Hypothyroidism (Chronic) Microcalcifications of the breast (Acute) Neuropathy of left hand (Acute) Neuropathy of right hand (Acute) Bilateral carpal tunnel syndrome (Acute) Medical History Hx pulmonary embolism (~2015) treated with lovenox x 3 months Surgical History Status post thyroidectomy History of fasciotomy History of Surgical Procedure a. Right and left toal knee replacements. b. Left knee has been repeatedly operated on with slava surgies, three replacements. Replacement of total knee joint Bilateral; left-became gcfenwqd-[id number]-bgegdhpp surgeries Fasciotomy, Foot (~1996) LEFT Family History Mother Diabetes Personal history of malignant neoplasm LUNG Father Personal history of malignant neoplasm BRAIN Grandfather No problems noted. Grandfather No problems noted. Grandmother No problems noted. Grandmother No problems noted. Social History Smoking/Tobacco Use Status: Former Tobacco Use tobacco type: cigarettes Quit Date: 01/21/21 Second Hand Exposure: Yes Smoking risk assessment performed?: Yes Alcohol Intake: never Drug use: Never Substance use type: does not use Counseling given: No Housing: apartment Communication Needs: Hard of Hearing and Corrective Lenses Pets and animals: Yes Pets and animals: cat(s) Sexually active: Yes Current gender identity: female What is your relationship status?: never How often do you talk on the phone with friends or family?: decline to answer How often do you get together with friends or relatives?: decline to answer How often do you attend congregation or pentecostal services?: decline to answer Do you belong to any clubs or organized social groups?: no Panel score (0-1 are the most socially isolated patients): 0 Seatbelt use: never Do you feel safe at home: Yes Do you feel safe in your relationship?: Yes Exam Const General: cooperative, not healthy appearing and ill appearing Nutritional Appearance: obese (BMI 74) morbidly obese Orientation: alert, awake and oriented x3 Neck Neck: normal visual inspection Resp Effort & Inspection: abnormal respiratory pattern, labored and tachypneic Cardio Rate: tachycardic GI Inspection: large pannus and obesity Results Last Vital Signs Temp 98.2 F 04/11/24 09:17 Pulse 82 04/11/24 09:17 Resp 19 04/11/24 11:00 BP 122/64 04/11/24 09:17 Pulse Ox 95 04/11/24 09:30 Labs 04/11/24 03:24 04/10/24 23:21 Labs: Laboratory Results - last 24 hr 04/10/24 04/10/24 04/10/24 23:05 23:21 23:21 WBC 8.33 RBC 4.56 Hgb 13.2 Hct 41.1 MCV 90 MCH 28.9 MCHC 32.1 RDW 14.5 Plt Count 286 MPV 10.5 Immature Gran % 0.2 Neutrophils % 59.8 Lymphocytes % 22.7 Monocytes % 9.6 Eosinophils % 7.1 Basophils % 0.6 Nucleated RBC % 0.0 Absolute Neutrophils 4.98 Absolute Lymphocytes 1.89 Absolute Monocytes 0.80 Absolute Eosinophils 0.59 Absolute Basophils 0.05 PT 10.5 INR 1.0 APTT 27.3 VBG pH VBG pCO2 VBG pO2 VBG HCO3 VBG Total CO2 VBG O2 Saturation VBG Base Excess Sodium 141 Potassium 3.6 Chloride 103 Carbon Dioxide 31.2 Anion Gap 6.8 BUN 13 Creatinine 0.8 Est GFR (CKD-EPI 2020) 80.71 Glucose 101 Calcium 9.0 Total Bilirubin 0.98 AST 19 ALT 20 Alkaline Phosphatase 82 Troponin I < 50 NT-Pro-B Natriuret Pep 104 Total Protein 7.8 Albumin 2.7 L TSH COVID-19 Source Nasopharynx SARS-CoV-2 (PCR) Negative Influenza Type A (PCR) Negative Influenza Type B (PCR) Negative RSV (PCR) Negative ABO/Rh O Positive Antibody Screen POSITIVE Antibody Identification Anti-Fyb Anti-K 04/11/24 04/11/24 04/11/24 01:28 03:24 03:26 WBC 10.08 RBC 4.09 Hgb 11.9 Hct 36.9 MCV 90 MCH 29.1 MCHC 32.2 RDW 14.5 Plt Count 250 MPV 10.3 Immature Gran % Neutrophils % Lymphocytes % Monocytes % Eosinophils % Basophils % Nucleated RBC % Absolute Neutrophils Absolute Lymphocytes Absolute Monocytes Absolute Eosinophils Absolute Basophils PT INR APTT VBG pH 7.34 VBG pCO2 57 H VBG pO2 68 VBG HCO3 31 H VBG Total CO2 29 VBG O2 Saturation 93 VBG Base Excess 5 H Sodium Potassium Chloride Carbon Dioxide Anion Gap BUN Creatinine Est GFR (CKD-EPI 2020) Glucose Calcium Total Bilirubin AST ALT Alkaline Phosphatase Troponin I < 50 NT-Pro-B Natriuret Pep Total Protein Albumin TSH 2.25 COVID-19 Source SARS-CoV-2 (PCR) Influenza Type A (PCR) Influenza Type B (PCR) RSV (PCR) ABO/Rh Antibody Screen Antibody Identification 04/11/24 06:13 WBC RBC Hgb Hct MCV MCH MCHC RDW Plt Count MPV Immature Gran % Neutrophils % Lymphocytes % Monocytes % Eosinophils % Basophils % Nucleated RBC % Absolute Neutrophils Absolute Lymphocytes Absolute Monocytes Absolute Eosinophils Absolute Basophils PT INR APTT VBG pH 7.33 VBG pCO2 60 H VBG pO2 51 VBG HCO3 31 H VBG Total CO2 29 VBG O2 Saturation 84 VBG Base Excess 5 H Sodium Potassium Chloride Carbon Dioxide Anion Gap BUN Creatinine Est GFR (CKD-EPI 2020) Glucose Calcium Total Bilirubin AST ALT Alkaline Phosphatase Troponin I NT-Pro-B Natriuret Pep Total Protein Albumin TSH COVID-19 Source SARS-CoV-2 (PCR) Influenza Type A (PCR) Influenza Type B (PCR) RSV (PCR) ABO/Rh Antibody Screen Antibody Identification
--- NOTE | 2024-04-11 13:16 | NUR.NOTE ---
Addendum entered by Mariella Colon 04/11/24 13:40: I explained to her the importance of pt safty and keeping her off the floor , her reply was i dont care about your license . Original Note: pt stated if she falls she will russ us , but refuses to let us help her to the commode .bed alarms are on , on her bed to let us no she is trying to get out of bed . Nursing Note:
[2024-04-11] MEDS: Perflutren Lipid Microspheres 1.5 ML VIAL IVP (14:20)
[2024-04-11] MEDS: cefTRIAXone 1 GM/50 ML BAG IVPB (19:53)
[2024-04-12] VITALS: PULSE 66; RESP 20
[2024-04-12 02:00] VITALS: PULSE 74; RESP 20
[2024-04-12] MEDS: methylPREDNISolone SUCC 125 MG VIAL 60 MG IVP (02:16)
[2024-04-12] MEDS: Levothyroxine 100 MCG TAB 200 MCG PO (05:59)
[2024-04-12 06:16] LABS: HCT 35.4 % (36.0-46.0); HGB 11.6 g/dL (11.2-15.7); MCH 29.2 pg (27.0-33.0); MCHC 32.8 % (32.0-36.0); MCV 89 fL (80-95); MPV 11.3 fL (8.0-11.0); Platelet Count 277 10^3/uL (130-400); RBC 3.97 10^6/uL (3.93-5.22); RDW 14.3 % (11.7-14.6); RDW-SD 46.4 fL; WBC 11.36 10^3/uL (4.4-10.8)
[2024-04-12 06:39] LABS: ALT 17 U/L (14-59); AST 18 U/L (15-37); Albumin 2.4 g/dL (3.4-5.0); Alkaline Phosphatase 58 U/L (46-116); Anion Gap 6.6 mmol/L (3-11); BUN 16 mg/dL (7-18); Bilirubin, Total 0.48 mg/dL (0.2-1.0); CO2 30.4 mmol/L (21.0-32.0); CREATININE 0.6 mg/dL (0.55-1.02); Calcium 8.3 mg/dL (8.5-10.1); Chloride 103 mmol/L (98-107); Estimated GFR 98.32 (mL/min/1.73m2); Glucose 144 mg/dL (74-106); Magnesium 1.7 mg/dL (1.8-2.4); Potassium 3.9 mmol/L (3.5-5.1); Sodium 140 mmol/L (136-145); Total Protein 6.8 g/dL (6.4-8.2)
[2024-04-12 07:59] VITALS: BP 119/85; PULSE 79; RESP 16; RESP 18; TEMP 36.6; O2SAT 94
[2024-04-12] MEDS: Norethindrone 5 MG TAB 10 MG PO (07:59)
[2024-04-12] MEDS: Furosemide 40 MG TAB 80 MG PO (08:00)
[2024-04-12] MEDS: Ascorbic Acid 500 MG TAB 1000 MG PO (08:00)
[2024-04-12] MEDS: Pantoprazole 20 MG TABCR PO (08:00)
[2024-04-12] MEDS: Sertraline 50 MG TAB PO (08:00)
[2024-04-12] MEDS: MAGNESIUM SULFATE 1 GM/100 ML BAG IVINF (08:02)
[2024-04-12] MEDS: predniSONE 20 MG TAB 40 MG PO (08:03)
--- NOTE | 2024-04-12 08:19 | PGE_ITS ---
Date of Service Date of service: 04/12/24 Time of Service: 08:19 Assessment and Plan Assessment and plan (1) Postmenopausal bleeding: Status: Acute Assessment and plan: Patient has postmenopausal bleeding with a significantly thickened endometrium at 3.5 cm. Her hemoglobin has been stable. Her bleeding has diminished. She is tolerating Aygestin, 10 mg twice daily. She does need endometrial sampling, however she is not a surgical candidate at our facility. Patient will be discharged home today per primary service. She will continue her Aygestin. Referral was placed for HEARING THERAPY DIRECTOR oncology at [facility] for evaluation, diagnosis, and further treatment. (2) Thickened endometrium: Status: Acute (3) Morbid obesity: Status: Acute (4) Chronic obstructive lung disease: Status: Chronic (5) Community acquired pneumonia: Status: Acute Qualifiers: Laterality: left Lung location: lower lobe of lung Qualified Code(s): J18.9 - Pneumonia, unspecified organism (6) Hx pulmonary embolism: Subjective Subjective Interval history since last seen: Patient seen this morning while having morning vitals and care performed. She is anticipating discharge home today. We discussed her gynecologic care. She has had no significant bleeding in the last 24 hours and has stable vital signs. She is doing well on her Aygestin, 10 mg twice daily. She will continue this at home. Referral will be placed for [facility] HEARING THERAPY DIRECTOR oncology for evaluation and treatment of her thickened endometrium, postmenopausal bleeding in the face of morbid obesity and multiple comorbidities. All of her questions are answered to the best of my ability today. Exam Const General: cooperative, not healthy appearing, comfortable and no acute distress Objective Last Vital Signs Temp 97.9 F 04/12/24 07:59 Pulse 79 04/12/24 07:59 Resp 18 04/12/24 07:59 BP 119/85 04/12/24 07:59 Pulse Ox 94 04/12/24 07:59 Laboratory Results - last 24 hr 04/11/24 04/12/24 03:26 05:20 WBC 11.36 H RBC 3.97 Hgb 11.6 Hct 35.4 L MCV 89 MCH 29.2 MCHC 32.8 RDW 14.3 Plt Count 277 MPV 11.3 H Sodium 140 Potassium 3.9 Chloride 103 Carbon Dioxide 30.4 Anion Gap 6.6 BUN 16 Creatinine 0.6 Est GFR (CKD-EPI 2021) 98.32 Glucose 144 H Calcium 8.3 L Magnesium 1.7 L Total Bilirubin 0.48 AST 18 ALT 17 Alkaline Phosphatase 58 Total Protein 6.8 Albumin 2.4 L TSH 2.25 Time Spent with Patient Time Spent with Patient: <25 minutes Time was spent: preparing to see the patient(eg.review tests), obtaining and/or reviewing separately otained hiistory, ordering medications,tests, procedures, referring, communicating with other health career technical education teacher, indepentently interpreting results, counseling the patient and care coordination
[2024-04-12] MEDS: Normal Saline Flush 10 ML SYR IVP (08:32)
--- NOTE | 2024-04-12 08:32 | IN_ITS ---
PT Notes Visit Reasons: LLL Pneumonia, Edema, Vaginal Bleeding Physical Therapy Inpatient Initial Evaluation Date: 04/12/2024 Referring Doctor: Brandan Hicks MD PT Orders: PT CONSULT: 'Safety Consult for D/C. Baseline limited mobility, resp infection improving Precautions: Fall. Standard. Activity as tolerated. Admitting Daignoses/Patient Profile: Radha is a 68-year-old female with past medical history significant for low back pain, L3-L4 spinal stenosis, and multiple L knee surgeries and R TKA who presented to the ED on 04/10/2024 due to vaginal bleeding. Patient was recommended for admission to ICU level of care for management of CAP, post- menopausal vaginal bleeding, COPD, lymphedema of B LE, DAVID, and hypothyroidism. PMHx: All Active Problems (Updated 04/11/24 @ 07:49 by TONY SINGH) COPD (chronic obstructive pulmonary disease) (Acute) Community acquired pneumonia (Acute) Pneumonia (Acute) Abnormal vaginal bleeding (Acute) Acute and chronic respiratory failure with hypoxia (Acute) Laceration of dobson (Acute) GERD (gastroesophageal reflux disease) (Chronic) had negative barium esophagram in 11/2022.Anxiety (Chronic) Venous stasis dermatitis (Acute) Lymphedema (Chronic) Chronic obstructive lung disease (Chronic) Quit smoking 2010. PFTs 09/2012 showed an FEV1 of 60% with improvement to 80% with bronchodilator, thought to be severe restrictive disease. Chronic headaches (Chronic) Recent Neurology consult for possible papilledema. Urinary incontinence (Chronic) On Detrol Recurrent UTI (Chronic) Right ventricular dysfunction (Chronic) Knee pain, bilateral (Chronic 07/23/14) s/p bilat TKR (left infected with mult surg and decreased mobility) Morbid obesity (Acute 04/05/13) Sensorineural hearing loss, bilateral (Chronic 08/29/13) Advance directive on file (Acute) Low back pain with sciatica (Chronic 05/03/14) CT at [facility] [place] [place] L3-4 spinal stenosis Varicose veins of lower extremity (Chronic) Depression (Chronic) Grief at loss of child (Acute) Chronic respiratory failure with hypoxia and hypercapnia (Chronic) home BiPap Status post total bilateral knee replacement (Acute) Sprain of scapholunate ligament (Acute 03/21/19) DAVID (obstructive sleep apnea) (Chronic) on BiPap Hyperglycemia (Acute) Mixed conductive and sensorineural hearing loss of both ears (Acute) Right carpal tunnel syndrome (Acute) Arthritis of right hand (Acute) Impingement of right ulnar nerve (Acute) Dermoid cyst of neck (Acute) Hypothyroidism (Chronic) Microcalcifications of the breast (Acute) Neuropathy of left hand (Acute) Neuropathy of right hand (Acute) Bilateral carpal tunnel syndrome (Acute) Medical History Hx pulmonary embolism (~2015) treated with lovenox x 3 months Surgical History Status post thyroidectomy History of fasciotomy History of Surgical Procedure a. Right and left toal knee replacements. b. Left knee has been repeatedly operated on with slava surgies, three replacements.Replacement of total knee joint Bilateral; left-became oqqcyvkx-ppfmtxp-mhxyfeyl surgeriesFasciotomy, Foot (~1996) LEFT Social History/Home Situation: Lives with significant other in a private. Has a ramp to enter the house. Independent with bed<>motorized wheelchair and chair<>motorized wheelchair using armrests for support and stand pivot technique. Able to cook meals while seated on motorized chair. SUBJECTIVE: Feels much better today. Hoping to get additional help at home. Okay with PT and OT services to assess level of dependence and need for support at home. DME: Motorized wheelchair, FWW, shower chair Objective: General Observation: Supine in bed. Telemetry monitoring in place. IV through L UE. High BMI. Mental Status: Alert but disoriented as to date and time. Able to follow single commands only. Pain: Pain in low back and B knees (chronic) Vital SIgns: Closely monitored by nursing staff ROM: Right Upper Extremity: 50% AROM in shoulder, WFL in elbow and and wrist Left Upper Extremity: 50% AROM in shoulder, WFL in elbow and and wrist Right Lower Extremity: Less than 50% AROM in hip, knee, and ankle Left Lower Extremity: Less than 50% AROM in hip, knee, and ankle Strength: Right Upper Extremity: Shoulder flexors 3-/5. Shoulder abductors 3-/5. Elbow flexors 3/5. Elbow extensors 3/5. Supply Technician strong. Left Upper Extremity: Shoulder flexors 3-/5. Shoulder abductors 3-/5. Elbow flexors 3/5. Elbow extensors 3/5. Supply Technician strong. Right Lower Extremity: Hip flexors 2-/5. Hip abductors 2-/5. Knee flexors 3-/5. Knee extensors 2-/5. Ankle dorsiflexors 2-/5. Ankle plantarflexors 2-/5. Left Lower Extremity: Hip flexors 2-/5. Hip abductors 2-/5. Knee flexors 3-/5. Knee extensors 2-/5. Ankle dorsiflexors 2-/5. Ankle plantarflexors 2-/5. Sensation: Intact as to pain and pressure on bilateral lower extremities. Bed Mobility/Transfers: Moderate cueing provided for use of B hands as needed for support, movement sequence, AD management, and posture to reduce fall risk and minimize pain report Sit to supine stand by assist with HOB at 20 degrees Stand to sit stand by assist Bed to bedside commode stand by assist, using armrests for support, stand pivot technique Chair to bed stand by assist Gait: Able to minimally side step as needed during transfers. Main mode of mobility indoors and outdoors is the motorized wheelchair at baseline Balance: Static Sitting: Good Dynamic Sitting: Fair Static Standing: Fair Dynamic Standing: Poor Special Tests: Mobility Limitations Standardized Measure [facility] AM-PAC 6 clicks Basic Mobility Inpatient Short Form: Raw Score: 19 CMS Score: 42% deficit Informed Consent/Education: Patient instructed in purpose of PT consult and plan of care. Agreeable to proceed with established PT POC to achieve personal goals. ASSESSMENT: Radha was able to perform stand pivot transfers to and from bedside commode using B armrests and edge of bed for support. She ias ble to weight bear fully on the R LE and partially on the L LE due to more pain and swelling in the L LE. Radha demonstrates stage III secondary lymphedema impacting her ability to perform mobility ADLs safely and is increasing her risk for skin breakdown and or infection. She requires skilled PT intervention to remediate functional limitations listed below, reuce fall risk, increase ability to thrive safely at home, and reduce risk for rehospitalization. She will benefit from skilled PT services in order regain prior level of function and achieve highest quality of life. She will benefit from PT and OT services to ensure that she safely returns to prior level with ADL performance at home. Radha presents with clinical signs and symptoms consistent with current/admitting diagnoses that have resulted to mobility limitations, gait instability, generalized weakness, and impairment of motor control as demonstrated by the following impairment level findings: 1. Decreased strength to B UE/LE major muscle groups 2. Impaired standing balance 3. Impaired activity tolerance 4. Positive Stemmer sign in toes in B LE 5. Skin breakdown to R leg being managed by wound nurse 6. Unstable R knee Impairments are continuing to contribute to the following functional limitations: 1. Inability to safely ambulate without assistive device and physical assistance 2. Increase completion time for mobility ADL performance 3. Increased fall risk 4. Increased risk for skin breakdown Patient is assessed as a 59822 moderate complexity based on the following: History: 68-year-old female with impairment level findings, functional limitations, and past medical history as indicated above Examination: Demonstrable impairment in strength, range of motion, and functional mobility level with underlying impairments and functional limitations as documented above Presentation: Stable Decision Makin moderate complexity Goals: Goals X1 week 1. Supine-Sit to 2. Sit-Supine independent 3. Sit-Stand independent 4. Stand-Sit independent 5. Bed-Chair independent 6. Chair-Bed independent Plan of Care/Treatment Plan: Patient will highly benefit from skilled physical therapy services including functional mobility training, bed mobility/transfer training, gait and balance training, therapeutic exercises, therapeutic activity, caregiver/staff/family education and training 1x/day, 7 days/week x 1 week. Plan of care has been reviewed with the ADJUNCT PROFESSOR OF LAW providing the service under Physical Therapy direction. Initiate Physical Therapy intervention for strengthening, bed mobility, transfers, and use of assistive device. DISCHARGE RECOMMENDATIONS: Patient will benefit from home health PT services in order to progress mobility level using least restrictive assistive ambulatory device, assess home safety, identify additional equipment needs, and establish a functional maintenance program that will increase ability of patient to remain at home. Consider resumption of complete decongestive therapy to address lymphedema symptoms. TREATMENT CODE/TIME: 58549 x 30 minutes for 4 units, 40303 x 27 minutes for 2 units (8:32-9:29). Thank you for the opportunity to participate in the care of this patient. Please do not hesitate to contact me with any questions or concerns regarding this patient's plan of care. Desi Pastor, PT, DPT, CLT [facility]
--- NOTE | 2024-04-12 08:59 | INITIAL_ITS ---
Date of service: 04/12/24 Time of Service: 08:59 Care Management Initial Assmt Initial Assessment Reason for Hospitalization: vaginal bleeding and respiratory failure Functional Status/Living Situation Patient Presentation: Radha was lying in bed when CM met with her. She was agreeable to conversation and engaged well with CM. Radha lives in an apartment with her boyfriend Galo. She is essentially wheelchair bound but is able to transfer herself in and out of bed and onto the commode. She explained that her left leg is broken. She had an injury and surgery in the past and she stated that she has a pin in her knee that is bent. She is totally non-weight bearing on that leg. Rdaha has 3 children and 3 grandchildren, most of whom live locally. Radha takes care of her 16 month old granddaughter every day during the week while her son works. Radha will likely be discharged later today. her vaginal bleeding has stopped and her oxygen needs are back to baseline. Town of Residence: [facility] Resides with: Other (with boyfriend Galo) Significant Other/Family: Local Employment Status: Disabled Instrumental Activities of Daily Living (ADLs): Independent Medications Medication Management: No Issues/Barriers identified Advance Directives Advance Directives: Do you have an Advance Directive: Y 04/11/24 07:49 AD On File at [facility]: Y 04/11/24 07:49 Date Asked 06/13/18 04/11/24 07:49 AD Date Reviewed 04/11/24 04/11/24 07:49 COLST On File at [facility] COLST Date Scanned Code Status Resuscitation Status Full Code Portal Pt does not currently have a portal and education provided: No Insurance Coverage/Financial Issues Insurance: [facility] Medicare Replacement Care Team Visit Care Team Role Provider Type Alphonso Murphy MD Primary Care Provider [facility] STAFF PHYSICIAN Kyara Saha Other Providers OTHER Vianca Wolf MD Emergency Provider [facility] STAFF PHYSICIAN Sunny Medina Admit Provider NON-[facility] STAFF PHYSICIAN Attending Provider Discharge Potential Discharge Needs: PCP F/U Appt and Other (will follow up with [facility] Gynecology) Anticipated Barriers to Discharge: None Identified Patient/Family Education Needs: Review discharge instructions, discuss Ask Me Three Transportation: Private vehicle Plan: Anticpate Radha will be discharged home with no new services. She will follow up with her community providers and plan of care and transport with family. CM will follow and continue to support Radha and her discharge needs. PFSH All Active Problems (Updated 04/12/24 @ 08:21 by Vandana Albert DO) Thickened endometrium (Acute) Postmenopausal bleeding (Acute) COPD (chronic obstructive pulmonary disease) (Acute) Community acquired pneumonia (Acute) Pneumonia (Acute) Abnormal vaginal bleeding (Acute) Acute and chronic respiratory failure with hypoxia (Acute) Laceration of dobson (Acute) GERD (gastroesophageal reflux disease) (Chronic) had negative barium esophagram in 11/2022. Anxiety (Chronic) Venous stasis dermatitis (Acute) Lymphedema (Chronic) Chronic obstructive lung disease (Chronic) Quit smoking 2010. PFTs 09/2012 showed an FEV1 of 60% with improvement to 80% with bronchodilator, thought to be severe restrictive disease. Chronic headaches (Chronic) Recent Neurology consult for possible papilledema. Urinary incontinence (Chronic) On Detrol Recurrent UTI (Chronic) Right ventricular dysfunction (Chronic) Knee pain, bilateral (Chronic 07/23/14) s/p bilat TKR (left infected with mult surg and decreased mobility) Morbid obesity (Acute 04/05/13) Sensorineural hearing loss, bilateral (Chronic 08/29/13) Advance directive on file (Acute) Low back pain with sciatica (Chronic 05/03/14) CT at [facility] L34 spinal stenosis Varicose veins of lower extremity (Chronic) Depression (Chronic) Grief at loss of child (Acute) Chronic respiratory failure with hypoxia and hypercapnia (Chronic) home BiPap Status post total bilateral knee replacement (Acute) Sprain of scapholunate ligament (Acute 03/21/19) DAVID (obstructive sleep apnea) (Chronic) on BiPap Hyperglycemia (Acute) Mixed conductive and sensorineural hearing loss of both ears (Acute) Right carpal tunnel syndrome (Acute) Arthritis of right hand (Acute) Impingement of right ulnar nerve (Acute) Dermoid cyst of neck (Acute) Hypothyroidism (Chronic) Microcalcifications of the breast (Acute) Neuropathy of left hand (Acute) Neuropathy of right hand (Acute) Bilateral carpal tunnel syndrome (Acute) Medical History Hx pulmonary embolism (~2016) treated with lovenox x 3 months Surgical History Status post thyroidectomy History of fasciotomy History of Surgical Procedure a. Right and left toal knee replacements. b. Left knee has been repeatedly operated on with slava surgies, three replacements. Replacement of total knee joint Bilateral; left-became tyyewwck-slqhzrx-eggvbbzs surgeries Fasciotomy, Foot (~1996) LEFT Family History Mother Diabetes Personal history of malignant neoplasm LUNG Father Personal history of malignant neoplasm BRAIN Grandfather No problems noted. Grandfather No problems noted. Grandmother No problems noted. Grandmother No problems noted. Social History Smoking/Tobacco Use Status: Former Tobacco Use tobacco type: cigarettes Quit Date: 01/21/21 Second Hand Exposure: Yes Smoking risk assessment performed?: Yes Alcohol Intake: never Drug use: Never Substance use type: does not use Counseling given: No Housing: apartment Communication Needs: Hard of Hearing and Corrective Lenses Pets and animals: Yes Pets and animals: cat(s) Sexually active: Yes Current gender identity: female What is your relationship status?: never How often do you talk on the phone with friends or family?: decline to answer How often do you get together with friends or relatives?: decline to answer How often do you attend mandaen or shinto services?: decline to answer Do you belong to any clubs or organized social groups?: no Panel score (0-1 are the most socially isolated patients): 0 Seatbelt use: never Do you feel safe at home: Yes Do you feel safe in your relationship?: Yes SDOH(Care Management) Screening Will the Patient Participate in the Screening?: Yes Do you worry about having a steady place to live?: no Problems where you live: no known problems In the past 12 months, have you had to go without electric, gas, oil or water in your home?: no Have you or anyone in your house had to go without enough food to eat?: no Has lack of transportation kept you from medical appointments or from doing things needed for daily living?: yes Has anyone in your support network made you feel unsafe for any reason?: no Health Related Social Needs Health related social needs: transportation insecurity(Z59.82)
[2024-04-12] MEDS: AZITHROMYCIN 500 MG in Normal Saline 250 ML 250 MG IVPB (10:55)
[2024-04-12 12:03] VITALS: BP 119/52; PULSE 72; RESP 23; TEMP 36.5; O2SAT 97
--- NOTE | 2024-04-12 12:33 | PDOC.HHF2F_ITS ---
Home Health Referral Home Health Orders Clinical synopsis of why skilled professionals are needed: 68 yo F with limited mobility and weakness associated with class 3 obesity, acute on chronic hypoxia with post menopausal vaginal bleeding and pneumonia . Medical diagnosis necessitation home health referral: class 3 obesity, acute on chronic hypoxia with post menopausal vaginal bleeding, pneumonia, COPD, DAVID, osteoarthritis Physical Therapist: Check all that apply Increase strength & endurance for safe mobility at home: Ordered To design/establish home maintenance program: Ordered Better Breathing Program: Ordered Transmission Tester: Assist with community resources: Ordered Home Bound Status Requires the aid of supportive device (check all that apply): Walker Describe why leaving home would require a considerable and taxing effort: Requires frequent rest periods and Oxygen Encounter Date and Reason: I certify that a FTF encounter for this patient was performed on April 12, 2024 and that such encounter was related to the primary reason the patient requires home health services. The encounter was conducted in the following manner: * By me as the certifying physician, ROAD CONDUCTOR, PA or * By an inpatient physician, ROAD CONDUCTOR or PA during an inpatient stay who communicated findings to me, Certification And Authentication I certify that I composed the above information based on my clinical judgment relating to this patient's medical condition and, if applicable, clinical findings communicated to me by the NPP or inpatient physician who performed the FTF encounter. Name of Provider that will be monitoring home health services: Alphonso Murphy
--- NOTE | 2024-04-12 12:40 | W.PM.DS.N ---
Date of service: 04/12/24 Time of Service: 12:41 DS: Diagnosis Discharge Diagnosis (1) Postmenopausal bleeding: Status: Acute (2) Thickened endometrium: Status: Acute (3) Morbid obesity: Status: Acute (4) Chronic obstructive lung disease: Status: Chronic (5) Community acquired pneumonia: Status: Acute (6) Hx pulmonary embolism: Discharge Plan Disposition Patient Disposition: Home W/Home Health Services Condition: Improving Discharge Details Reason For Visit: LLL Pneumonia, Edema, Vaginal Bleeding Admit Date/Time: 04/11/24 07:02 Admit Provider: Sunny Medina Attending Provider: Sunny Medina Primary Care Provider: Alphonso Murphy Hospital Course Hospital Course: 68 yo M with limited mobility associated with chronic lymphedema, class 3 obesity, and orthopedic complications as well as COPD and DAVID on chronic oxygen and CPAP and history of PE on apxiaban, who presented acute vaginal bleeding with increased hypoxia. She was evaluated by gynecology who started progesterone therapy with norethindrone 10mg BID, which stopped the bleeding by the second day of admission. The norethindrone was continued with plan for outpatient follow up. A pelvic ultrasound did show a significantly thickened endometrium at 3.5cm. Gynecology recommended follow up at [facility] given her comorbidities. Her apixaban and aspirin were held. It was recommended to resume the apixaban after two days if the bleeding dose not recur given her history of PE. The indication for ongoing aspirin therapy is not clear. Her hemoglobin dropped from 13.2 to 11.6 without hemodynamic changes. Iron was started due to the acute blood loss. Chest XR revealed pneumonia and she was treated with ceftriaxone and azithromycin, along with methylprednisolone that was transitioned to prednisone. She was given 3 additional days of treatment to complete a 5 day course for community acquired pneumonia and COPD exacerbation. Her oxygen need was at her baseline 3 liters at the time of discharge. Magnesium was mildly low at 1.7 and supplemented intravenously the days of discharge. Home Meds and New Rx's Prescriptions: New norethindrone acetate 5 mg tablet 10 mg PO BID Qty: 180 1RF docusate sodium [Colace] 100 mg Capsule 100 mg PO TID PRN PRNQty: 60 0RF prednisone 20 mg Tablet 40 mg PO DAILY 3 Days Qty: 6 0RF Rx Instructions: start 04/13 amoxicillin-pot clavulanate 875-125 mg tablet 1 tab PO BID Qty: 6 0RF Rx Instructions: start 8 AM azithromycin 250 mg tablet 250 mg PO DAILY 3 Days Qty: 3 0RF Rx Instructions: start 04/13 ferrous sulfate 325 mg (65 mg iron) tablet 325 mg PO Q OTHER DAY Qty: 15 2RF Continued pantoprazole 20 mg tablet,delayed release (DR/EC) 20 mg PO DAILY Qty: 90 3RF Rx Instructions: 04/13/23 Per GI. -hb alclometasone 0.05 % cream 1 applic topical BID PRN (Reason: itching) Qty: 45 1RF ketoconazole 2 % cream 1 applic topical BID PRN (Reason: facial rash) Qty: 60 1RF nystatin 100,000 unit/gram powder 1 applic TP BID PRN (Reason: intertrigo) Qty: 30 5RF ascorbic acid (vitamin C) 1,000 MG tablet 1,000 mg PO DAILY (DME) Aerochamber Mini 1 EACH spacer 1 ea Inhalation PRN Qty: 1 Rx Instructions: DIRECTED WITH INHALER BiPAP Inhalation Gas 5 l IN DIRECTED Rx Instructions: sleep apnea ([facility] sleep lab 2013) uses with oxygen albuterol sulfate [ProAir HFA] 90 mcg/actuation HFA aerosol inhaler 1 - 2 puff Inhalation Q6H PRN Qty: 1 11RF betamethasone, augmented 0.05 % lotion 1 applic topical BID PRN (Reason: allergic reaction) Qty: 60 2RF ipratropium-albuterol 0.5 mg-3 mg(2.5 mg base)/3 mL solution for nebulization 3 ml IH QID MDD 4 nebs Qty: 180 3RF sertraline 50 mg tablet 50 mg PO DAILY Qty: 90 3RF levothyroxine 200 mcg tablet 200 mcg PO DAILY Qty: 90 3RF furosemide 40 mg tablet 80 mg PO DAILY Qty: 180 3RF Rx Instructions: per livestock counter at [facility] oxygen Inhalation 3 l Intranasal DIRECTED Patient Comments: Continuous and uses with bipap Rx Instructions: 3L/NC continuous Held Eliquis 5 mg tablet 5 mg PO BID Qty: 60 5RF Hold Instructions: Resume on 04/14/24. resume Saturday 04/14 unless you have additional bleeding before then Discontinued aspirin 325 MG tablet 325 mg PO DAILY Qty: 0 0RF Discharge Instructions Instructions: Community-Acquired Pneumonia, Adult (DC), Bleeding After Menopause Additional Instructions: You were given medication for the bleeding norethindrone as above. Continue this until the wheel roller tells you to stop. You can resume the Eliquis after 2 days if you don't have additional bleeding. You should stay off the the aspirin for now. Seek medical care if the bleeding returns. Iron was recommended because of the blood loss. You can take this every other day. You will need a biopsy for this to assess for endometrial cancer. You were diagnosed with a pneumonia. You should take 3 more days of antibiotics and prednisone starting Friday 04/13 to finish this treatment. She had an echocardiogram that showed preserved LVEF of 55%, mild LVH, RVSP of 40.1 mmHg She was seen by physical therapy who recommended home health PT. Referrals: None,None [ NON-[facility] STAFF PHYSICIAN] - ([facility]/Oncology will call to schedule follow-up appointment) Delmis Melendez MD [ [facility] STAFF PHYSICIAN] - 04/18/24 1:00 pm Activity:: Activity as Tolerated Equipment/Supplies:: No Equipment Needed Diet:: As Tolerated Discharge Orders Discharge Orders: Discharge Order (Routine); Ordered 04/12/24 Ordered By: Brandan Hicks DS: Summary Time Spent with Patient providing and/or coordinating discharge services: Greater than 30 minutes Status at Discharge Functional status at discharge: uses cane/walker Overall status at discharge: patient is progressing back to baseline Mental Status: mental status grossly normal Speech and Movement: speech and movement normal Mood: congruent mood Affect: normal affect Quality:SDOH Health Related Social Needs: Health related social needs transpo insecurity Exam Narrative Exam Narrative: General: Alert and orient, no acute distress sitting in bed Lungs: CTAB with normal effort, NC at 3L Heart: Regular rate and rhythm with no murmurs or gallops appreciated. Distant heart sounds. Abdomen: soft, NT Extremities: As described above, hard 3+ edema which is chronic with folds and chronic skin changes with lichenification. Well-healed scars over both knees. Marked decrease movement of lower extremities. Skin: Pale, warm and dry with coarsened, rough texture of the lower extremity with bandaged wound right dobson Psych Mental Status: mental status grossly normal Speech and Movement: speech and movement normal Mood: congruent mood Affect: normal affect DS: Data Vitals/I&O Vitals and I&O: Vital Signs Temperature 36.5 C 04/12/24 12:03 Temperature Source Temporal Artery Scan 04/12/24 07:59 Pulse 72 04/12/24 12:03 Pulse Rhythm Regular 04/12/24 08:20 Pulse Strength Normal 04/11/24 06:20 Pulse 72 04/12/24 12:03 Respiratory Rate 23 04/12/24 12:03 Respiratory Effort Labored, Incrsd Work of Breathing 04/12/24 08:20 Respiratory Depth Normal 04/12/24 08:20 Respiratory Pattern Tachypnea 04/12/24 08:20 Blood Pressure 119/52 L 04/12/24 12:03 Blood Pressure Mean 72 04/12/24 12:03 Blood Pressure Position Sitting 04/11/24 06:20 Pulse Oximetry 97 04/12/24 12:03 Oxygen Delivery Method Nasal Cannula 04/12/24 07:59 Oxygen Flow Rate 3 04/12/24 07:59 Pain Level 8 04/11/24 09:17 Intake & Output 04/11/24 04/12/24 04/12/24 23:59 11:59 23:59 Intake Total 500 / 550 600 / 600 Output Total 1175 / 1175 200 / 200 Balance -675 / -625 600 / 400 -200 / 400 Intake: IV 260 / 310 180 / 180 Oral 240 / 240 420 / 420 Output: Urine 1175 / 1175 200 / 200 Other: Urine Color Light Anay Light Anay Urine Appearance Clear Clear Clear Urine Odor Strong Normal Comment reported vaginal clots HX. one dime sized flat clot noted in commode and 2 thread like 1-2 cm long pieces also seen in urine urine clear and yellow otherwise Not measurable d/t toliet paper. Estimate 150ccs Stool Size Large Small Stool Characteristics Soft Soft Formed Formed Brown Voiding Methods Bedside Commode Data Completed and Pending Labs on day of discharge: Labs from last 24 hours 04/12/24 05:20 WBC 11.36 H RBC 3.97 Hgb 11.6 Hct 35.4 L MCV 89 MCH 29.2 MCHC 32.8 RDW 14.3 Plt Count 277 MPV 11.3 H Sodium 140 Potassium 3.9 Chloride 103 Carbon Dioxide 30.4 Anion Gap 6.6 BUN 16 Creatinine 0.6 Est GFR (CKD-EPI 2020) 98.32 Glucose 144 H Calcium 8.3 L Magnesium 1.7 L Total Bilirubin 0.48 AST 18 ALT 17 Alkaline Phosphatase 58 Total Protein 6.8 Albumin 2.4 L PFSH All Active Problems (Updated 04/12/24 @ 08:21 by Vandana Albert DO) Thickened endometrium (Acute) Postmenopausal bleeding (Acute) Pneumonia (Acute) Abnormal vaginal bleeding (Acute) Acute and chronic respiratory failure with hypoxia (Acute) Laceration of dobson (Acute) GERD (gastroesophageal reflux disease) (Chronic) had negative barium esophagram in 11/2022. Anxiety (Chronic) COPD (chronic obstructive pulmonary disease) (Acute) Venous stasis dermatitis (Acute) Lymphedema (Chronic) Bilateral carpal tunnel syndrome (Acute) Neuropathy of right hand (Acute) Neuropathy of left hand (Acute) Microcalcifications of the breast (Acute) Hypothyroidism (Chronic) Dermoid cyst of neck (Acute) Impingement of right ulnar nerve (Acute) Arthritis of right hand (Acute) Right carpal tunnel syndrome (Acute) Mixed conductive and sensorineural hearing loss of both ears (Acute) Hyperglycemia (Acute) DAVID (obstructive sleep apnea) (Chronic) on BiPap Community acquired pneumonia (Acute) Sprain of scapholunate ligament (Acute 03/21/19) Status post total bilateral knee replacement (Acute) Chronic respiratory failure with hypoxia and hypercapnia (Chronic) home BiPap Grief at loss of child (Acute) Depression (Chronic) Varicose veins of lower extremity (Chronic) Low back pain with sciatica (Chronic 05/03/14) CT at [facility] L34 spinal stenosis Advance directive on file (Acute) Sensorineural hearing loss, bilateral (Chronic 08/29/13) Morbid obesity (Acute 04/05/13) Knee pain, bilateral (Chronic 07/23/14) s/p bilat TKR (left infected with mult surg and decreased mobility) Right ventricular dysfunction (Chronic) Recurrent UTI (Chronic) Urinary incontinence (Chronic) On Detrol Chronic headaches (Chronic) Recent Neurology consult for possible papilledema. Chronic obstructive lung disease (Chronic) Quit smoking 2010. PFTs 09/2012 showed an FEV1 of 60% with improvement to 80% with bronchodilator, thought to be severe restrictive disease. Medical History Hx pulmonary embolism (~2015) treated with lovenox x 3 months Surgical History Status post thyroidectomy History of fasciotomy History of Surgical Procedure a. Right and left toal knee replacements. b. Left knee has been repeatedly operated on with slava surgies, three replacements. Replacement of total knee joint Bilateral; left-became dxgnkhxt-rttmwjn-srehjydm surgeries Fasciotomy, Foot (~1996) LEFT Family History Mother Diabetes Personal history of malignant neoplasm LUNG Father Personal history of malignant neoplasm BRAIN Grandfather No problems noted. Grandfather No problems noted. Grandmother No problems noted. Grandmother No problems noted. Social History Smoking/Tobacco Use Status: Former Tobacco Use tobacco type: cigarettes Quit Date: 01/21/21 Second Hand Exposure: Yes Smoking risk assessment performed?: Yes Alcohol Intake: never Drug use: Never Substance use type: does not use Counseling given: No Housing: apartment Communication Needs: Hard of Hearing and Corrective Lenses Pets and animals: Yes Pets and animals: cat(s) Sexually active: Yes Current gender identity: female What is your relationship status?: never How often do you talk on the phone with friends or family?: decline to answer How often do you get together with friends or relatives?: decline to answer How often do you attend denominational or taoism services?: decline to answer Do you belong to any clubs or organized social groups?: no Panel score (0-1 are the most socially isolated patients): 0 Seatbelt use: never Do you feel safe at home: Yes Do you feel safe in your relationship?: Yes Time Spent with Patient Time Spent with Patient: 45-69 minutes Time was spent: preparing to see the patient(eg.review tests), obtaining and/or reviewing separately otained hiistory, ordering medications,tests, procedures, referring, communicating with other health human services care specialist, indepentently interpreting results, counseling the patient and care coordination
--- NOTE | 2024-04-12 16:37 | PDOC.CMDIS ---
Date of service: 04/12/24 Time of Service: 16:37 LACE Index Scoring Tool Questions: Length of Stay (in days): 1 Was the patient admitted via the E.D.?: Yes Comorbidities: Chronic Pulmonary Disease E.D. Visits: 2 Answers: Total Score: 8 Risk of Readmission: Low Risk Care Management Discharge Plan Reason for Hospitalization: vaginal bleeding Discharge Plan: Radha will be discharged home with new home health orders for nursing and PT. She will follow up with her community providers and plan of care and transport home with her boyfriend. Patient/Family Education Needs: Review discharge instructions, discuss Ask Me Three Services Needed at Discharge: Home Health Care Services ([facility] notified by CM on 04/12/24 at 1645.) SDOH Health Related Social Needs: Health related social needs transpo insecurity Health related social needs: transportation insecurity(Z59.82)
== END 2024-04-12 18:35 | disposition home health service (06) ==
LOC: ER 04-11 03:04 → ICU 04-11 11:01
PROVIDERS: Admitting Provider Family Medicine; Emergency Provider Student in an Organized Health Care Education/Training Program; PCP Family Medicine; Visit Provider Family Medicine
DX: N95.0 Postmenopausal bleeding (principal); J18.9 Pneumonia, unspecified organism; R93.89 Abnormal findings on diagnostic imaging of other specified body structures; Z86.711 Personal history of pulmonary embolism; E66.01 Morbid (severe) obesity due to excess calories; J44.0 Chronic obstructive pulmonary disease with (acute) lower respiratory infection; J44.1 Chronic obstructive pulmonary disease with (acute) exacerbation; Z68.45 Body mass index [BMI] 70 or greater, adult; I89.0 Lymphedema, not elsewhere classified; R09.02 Hypoxemia; K21.9 Gastro-esophageal reflux disease without esophagitis; I87.2 Venous insufficiency (chronic) (peripheral); F32.A Depression, unspecified; F41.9 Anxiety disorder, unspecified; R32 Unspecified urinary incontinence; Z79.899 Other long term (current) drug therapy; Z87.891 Personal history of nicotine dependence; R51.9 Headache, unspecified; H90.3 Sensorineural hearing loss, bilateral; Z96.651 Presence of right artificial knee joint; G47.33 Obstructive sleep apnea (adult) (pediatric); Z79.01 Long term (current) use of anticoagulants; Z99.81 Dependence on supplemental oxygen
CPT/HCPCS: 00123; 36415; 80053; 82805; 85027; 86850; 86900; 86901; 86920; 87637; 93005; 94640; 96365; 96366; 96367; 96375; 97162; 97530; 99285; C8929; 71045; 76830; 76856; 83735; 83880; 84443; 84484; 85025; 85610; 85730; 86870; 86880; 86902; 86905; 93010; 99223; 99239; J0456; J0696; J2919; J3475; J7512; J7620

== ENCOUNTER → 2024-04-20 10:23 | Outpatient (BNVA) | payer MEDICARE, MEDICAID, SELFPAY | PROVIDERS: PCP Family Medicine; Referring Provider Family Medicine; Visit Provider Physical Therapy Assistant | DX: S81.811D Laceration without foreign body, right lower leg, subsequent encounter (principal); T81.30XD Disruption of wound, unspecified, subsequent encounter; X58.XXXD Exposure to other specified factors, subsequent encounter | CPT/HCPCS: 99213 ==

== ENCOUNTER → 2024-05-04 10:49 | Outpatient (BNVA) | payer MEDICARE, MEDICAID, SELFPAY | PROVIDERS: PCP Family Medicine; Referring Provider Family Medicine; Visit Provider Physical Therapy Assistant | DX: S81.811D Laceration without foreign body, right lower leg, subsequent encounter (principal); X58.XXXD Exposure to other specified factors, subsequent encounter | CPT/HCPCS: 99213 ==

== ENCOUNTER → 2024-05-18 11:22 | Outpatient (BNVA) | payer MEDICARE, MEDICAID, SELFPAY | PROVIDERS: PCP Family Medicine; Referring Provider Family Medicine; Visit Provider Physical Therapy Assistant ==

== ENCOUNTER 2024-05-30 10:45 | Inpatient (IN) | payer MEDICARE, MEDICAID, SELFPAY ==
[2024-05-30] VITALS (47 sets, daily range): BP systolic 111–157; BP diastolic 42–72; PULSE 73–86; RESP 6–31; TEMP 36.3–37.1; O2SAT 79–95
--- NOTE | 2024-05-30 11:33 | ED.GENADUL_ITS ---
Discharge Plan Disposition Patient Disposition: Admit to [facility] Condition: Improving Discharge Details Chief Complaint: SOB Clinical Impression: COPD (chronic obstructive pulmonary disease), Community acquired pneumonia, Lymphedema, Heart failure with preserved ejection fraction Admit Date/Time: 05/30/24 13:50 Admit Provider: Brandan Hicks Attending Provider: Brandan Hicks Primary Care Provider: Alphonso Murphy ED Provider: Rosa Arellano Discharge Data Discharge Date/Time-TO BE ENTERED AT DEPARTURE: 05/30/24 15:43 HPI General Date/Time Provider Initiated Documentation: 05/30/24 11:28 . Limitations to Documentation: no limitations . Information obtained by: patient, RN notes reviewed and old records reviewed . History of Present Illness 69 year old F presents to the emergency department with the chief complaint of SOB, cough, described as moderate, and is localized to the chest. Patient started experiencing this day(s) and it has been constant. No relieving factors improve symptom(s), No exacerbating factors reported . Patient notes cough, loss of appetite, malaise and shortne ss of breath; denies chest pain, fever/chills, headaches, nausea/vomiting and rash. Patient did receive the following treatments prior to arrival, none Related Data Home Medications ?Medication ?Instructions ?Recorded ?Confirmed ascorbic acid (vitamin C) 1,000 mg 1,000 mg PO DAILY 11/25/12 05/30/24 tablet inhalational spacing device ##1 12/21/13 05/30/24 (Aerochamber Mini) Bipap 5 l IN DIRECTED 07/23/14 05/30/24 betamethasone, augmented 0.05 % 1 applic topical BID PRN allergic 06/20/21 05/30/24 lotion reaction #60 mL ipratropium 0.5 mg-albuterol 3 mg 3 ml inhalation QID COPD 10/16/22 05/30/24 (2.5 mg base)/3 mL nebulization exacerbation/wheezing #180 mL soln pantoprazole 20 mg tablet,delayed 20 mg PO DAILY #90 tabs 08/04/23 05/30/24 release sertraline 50 mg tablet 50 mg PO DAILY #90 tabs 10/13/23 05/30/24 nystatin 100,000 unit/gram topical 1 applic topical BID PRN 07/02/24 10/16/24 powder intertrigo #30 grams levothyroxine 200 mcg tablet 200 mcg PO DAILY #90 tabs 02/15/24 05/30/24 furosemide 40 mg tablet 80 mg (2 x 40 mg) PO DAILY #180 03/13/24 05/30/24 tabs oxygen 3 l intranasal DIRECTED 04/02/24 05/30/24 docusate sodium 100 mg capsule 100 mg PO TID PRN PRN #60 caps 04/12/24 05/30/24 (Colace) ferrous sulfate 325 mg (65 mg 325 mg PO Q OTHER DAY #15 tabs 04/12/24 05/30/24 iron) tablet norethindrone acetate 5 mg tablet 10 mg (2 x 5 mg) PO BID #180 tabs 04/12/24 05/30/24 albuterol sulfate 90 mcg/actuation 1 - 2 puff inhalation Q6H PRN ##1 04/14/24 05/30/24 aerosol inhaler alclometasone 0.05 % topical cream 1 applic topical BID PRN itching 04/17/24 05/30/24 #45 grams ketoconazole 2 % topical cream 1 applic topical BID PRN facial 04/17/24 05/30/24 rash #60 grams Previous Rx's ?Medication ?Instructions ?Recorded betamethasone, augmented 0.05 % 1 applic topical BID PRN allergic 06/20/21 lotion reaction #60 mL ipratropium 0.5 mg-albuterol 3 mg 3 ml inhalation QID COPD 10/16/22 (2.5 mg base)/3 mL nebulization exacerbation/wheezing #180 mL soln pantoprazole 20 mg tablet,delayed 20 mg PO DAILY #90 tabs 08/04/23 release sertraline 50 mg tablet 50 mg PO DAILY #90 tabs 10/13/23 nystatin 100,000 unit/gram topical 1 applic topical BID PRN 02/14/24 powder intertrigo #30 grams levothyroxine 200 mcg tablet 200 mcg PO DAILY #90 tabs 02/15/24 furosemide 40 mg tablet 80 mg (2 x 40 mg) PO DAILY #180 03/13/24 tabs docusate sodium 100 mg capsule 100 mg PO TID PRN PRN #60 caps 04/12/24 (Colace) ferrous sulfate 325 mg (65 mg 325 mg PO Q OTHER DAY #15 tabs 04/12/24 iron) tablet norethindrone acetate 5 mg tablet 10 mg (2 x 5 mg) PO BID #180 tabs 04/12/24 albuterol sulfate 90 mcg/actuation 1 - 2 puff inhalation Q6H PRN ##1 04/14/24 aerosol inhaler alclometasone 0.05 % topical cream 1 applic topical BID PRN itching 04/17/24 #45 grams ketoconazole 2 % topical cream 1 applic topical BID PRN facial 04/17/24 rash #60 grams Allergies Allergy/AdvReac Type Severity Reaction Status Date / Time hydrocodone Allergy Severe ITCHING Verified 05/30/24 11:04 morphine Allergy Mild PRURITIS Verified 05/30/24 11:04 oxycodone Allergy Mild ITCHING Verified 05/30/24 11:04 General Stated Complaint: SOB REUBEN: 3 Review of Systems Constitutional Constitutional: Reports as per HPI, Denies chills, Denies fever(s) and Denies headache(s) Eyes Eyes: Denies change in vision ENT Ears, Nose, Mouth, and Throat: Denies dizziness and Denies headache(s) Cardiovascular Cardiovascular: Reports as per HPI Respiratory Respiratory: Reports as per HPI, Denies pain on inspiration and Denies pain with cough Gastrointestinal Gastrointestinal: Reports as per HPI, Denies abdominal pain, Denies diarrhea and Denies vomiting Musculoskeletal Musculoskeletal: Reports as per HPI and Denies back pain Integumentary/Breasts Skin/Breast: Reports as per HPI and Denies rash Neurologic Neurologic: Reports as per HPI, Denies dizziness and Denies headache(s) Exam Const General: cooperative, not healthy appearing, comfortable, no acute distress and well developed Nutritional Appearance: well nourished and obese Orientation: alert, awake and oriented x3 HENMT Head: normal to inspection Ears: hearing grossly normal bilaterally Chest Chest: normal inspection of the chest, normal palpation of entire chest wall and no crepitus Resp Effort & Inspection: normal respiratory effort, able to speak in complete sentences, tachypneic, tripod positioning and uses accessory muscles Auscultation: not clear to auscultation bilaterally, rhonchi and wheezes Cardio Rate: regular rate Rhythm: regular rhythm Heart Sounds: S1 normal and S2 normal Skin General skin exam: no rashes or lesions noted Trauma: no lacerations or abrasions Neuro General: patient alert, patient awake and patient oriented x3 Cognition: normal cognition Speech: speech normal Extrem General: no calf tenderness and edema Laterality: bilateral Course Vital Signs Vital signs: Vital Signs Temperature 36.4 C 05/30/24 11:00 Pulse 79 05/30/24 11:00 Respiratory Rate 28 H 05/30/24 11:00 Pulse Oximetry 79 L 05/30/24 11:00 Temperature 36.9 C 05/30/24 11:12 Temperature Source Temporal Artery Scan 05/30/24 11:12 Pulse 76 05/30/24 11:12 Respiratory Rate 28 H 05/30/24 11:12 Respiratory Effort Short of Breath, Labored 05/30/24 11:12 Respiratory Depth Deep 05/30/24 11:12 Respiratory Pattern Tachypnea 05/30/24 11:12 Blood Pressure 138/72 05/30/24 11:12 Blood Pressure Position Sitting 05/30/24 11:12 Pulse Oximetry 95 05/30/24 11:12 Oxygen Delivery Method Nasal Cannula 05/30/24 11:12 Oxygen Flow Rate 5 05/30/24 11:12 Medical Decision Making Patient is a 69-year-old female, well-known to myself and the department, with past medical history significant for COPD, lymphedema, DAVID, morbid obesity, right ventricular dysfunction, presenting today with chief complaint of shortness of breath, cough, general malaise and anorexia. She reports it has been about 3 days ago. Her grandchild, who is with her in the afternoons, has been ill with upper respiratory infection. Patient reports that symptoms have persisted and have worsened. She denies any recent fevers or chills. Patient is on baseline 3 L nasal cannula. Is wheelchair-bound at baseline. She denies any chest pain. No abdominal upset. Denies any diarrhea. States that she has not had any p.o. intake for the past 2 days. Has found improvement in her symptoms with updraft. On exam, patient appears chronically ill. She not in acute respiratory distress but does sound quite junky, has diffuse rhonchi and expiratory wheezing. She does have significant lower extremity edema but this is not some to be increased from her baseline. Her oxygen was initially 79% on her 3 L, increased to 92 on 5. I have requested RT to evaluate the patient and gave patient DuoNeb for sig nificant for her symptoms. She is otherwise hemodynamically stable. Concerns were primarily for COPD exacerbation in the setting of acute respiratory illness. Will continue with the DuoNebs. Will give steroids as well as empiric antibiotics. Will try to obtain a sputum culture. Will begin her on ciprofloxacin. Patient improved after DuoNeb. Continues to have increased O2 demand but she subjectively feels improved. Her wheezing is also diminished some. Started on ciprofloxacin and gave a dose of methylprednisolone. Labs reviewed. Slight leukocytosis with white count of 11 3. VBG significant for some CO2 retainment with a CO2 of 60, bicarb of 35 with a lactate of 1. CMP significant for elevated AST as well as ALT both of which appear to be new for the patient. This could potentially be associated with her viral illness. BNP is also elevated at 974 which is quite high for the patient. Will give Lasix for presumed CHF exacerbation as well. She was negative for COVID. After patient receiving 2 DuoNebs, methylprednisolone, ciprofloxacin and Lasix, she is improving but continues to have 5 L nasal cannula oxygen demand which is above his baseline. I believe that given her chronic comorbidities, difficulty with ambulation, poor pulmonary status at baseline, admission would be appropriate. I did discuss this with the patient who is in agreement. Consulted with hospitalist who agrees to admission. Patient admitted for pneumonia, COPD and CHF exacerbation. Likely associated with viral illness. This documentation was generated using [employer] dictation system, please disregard any oddities of phrase or misspellings. Quality:SDOH Health Related Social Needs: Health related social needs transportation insecurity( Z59.82) PFSH All Active Problems (Updated 05/30/24 @ 16:57 by INESSA Ngo) Heart failure with preserved ejection fraction (Acute) Wound dehiscence (Acute) Thickened endometrium (Acute) Postmenopausal bleeding (Acute) COPD (chronic obstructive pulmonary disease) (Acute) Community acquired pneumonia (Acute) Acute and chronic respiratory failure with hypoxia (Acute) Laceration of dobson (Acute) GERD (gastroesophageal reflux disease) (Chronic) had negative barium esophagram in 11/2022. Anxiety (Chronic) Venous stasis dermatitis (Acute) Lymphedema (Chronic) Chronic headaches (Chronic) Recent Neurology consult for possible papilledema. Urinary incontinence (Chronic) On Detrol Recurrent UTI (Chronic) Right ventricular dysfunction (Chronic) Knee pain, bilateral (Chronic 07/23/14) s/p bilat TKR (left infected with mult surg and decreased mobility) Morbid obesity (Acute 04/05/13) Sensorineural hearing loss, bilateral (Chronic 08/29/13) Advance directive on file (Acute) Low back pain with sciatica (Chronic 05/03/14) [place] [facility] [place] Varicose veins of lower extremity (Chronic) Depression (Chronic) Grief at loss of child (Acute) Chronic respiratory failure with hypoxia and hypercapnia (Chronic) home BiPap Status post total bilateral knee replacement (Acute) Sprain of scapholunate ligament (Acute 03/21/19) DAVID (obstructive sleep apnea) (Chronic) on BiPap Hyperglycemia (Acute) Mixed conductive and sensorineural hearing loss of both ears (Acute) Right carpal tunnel syndrome (Acute) Arthritis of right hand (Acute) Impingement of right ulnar nerve (Acute) Dermoid cyst of neck (Acute) Hypothyroidism (Chronic) Microcalcifications of the breast (Acute) Neuropathy of left hand (Acute) Neuropathy of right hand (Acute) Bilateral carpal tunnel syndrome (Acute) Medical History Hx pulmonary embolism (~2015) treated with lovenox x 3 months Surgical History Status post thyroidectomy History of fasciotomy History of Surgical Procedure a. Right and left toal knee replacements. b. Left knee has been repeatedly operated on with slava surgies, three replacements. Replacement of total knee joint Bilateral; left-became ttfopwev-[id number]-lvrrrwtd surgeries Fasciotomy, Foot (~1996) LEFT Family History Mother Diabetes Personal history of malignant neoplasm LUNG Father Personal history of malignant neoplasm BRAIN Grandfather No problems noted. Grandfather No problems noted. Grandmother No problems noted. Grandmother No problems noted. Social History Smoking/Tobacco Use Status: Former Tobacco Use tobacco type: cigarettes Quit Date: 01/21/21 Second Hand Exposure: Yes Smoking risk assessment performed?: Yes Alcohol Intake: never Drug use: Never Substance use type: does not use Counseling given: No Housing: apartment Communication Needs: Hard of Hearing and Corrective Lenses Pets and animals: Yes Pets and animals: cat(s) Sexually active: Yes Current gender identity: female What is your relationship status?: never How often do you talk on the phone with friends or family?: decline to answer How often do you get together with friends or relatives?: decline to answer How often do you attend yazidi or jewish services?: decline to answer Do you belong to any clubs or organized social groups?: no Panel score (0-1 are the most socially isolated patients): 0 Seatbelt use: never Do you feel safe at home: Yes Do you feel safe in your relationship?: Yes
[2024-05-30] MEDS: Albuterol/Ipratropium 3 ML UPD VIAL UPD ×2 (11:38→19:46)
--- NOTE | 2024-05-30 12:22 | ED.PROG_ITS ---
Date of service: 05/30/24 Time of Service: 12:22 Medical Decision Making US Guided Peripheral IV Procedure Note Indication: Difficult IV access Peripheral Prep: Skin prep: Alcohol prep. Prep agent: Prep was allowed to dry for 30 seconds. Sterility: Gloves & sterile probe cover & sterile ultrasound gel. Insertion: Appropriate procedural pause was taken. Ultrasound guided 20-gauge catheter was placed under real-time guidance in the patient's right cephalic vein of the forearm on second attempt. Post Procedure: Estimated blood loss: Minimal Complications: None Ultrasound IV confirmed by bubble study. Quality:[facility] Health Related Social Needs: Health related social needs transportation insecurity( Z59.82) Discharge Plan Discharge Details Chief Complaint: SOB Primary Care Provider: Alphonso Murphy ED Provider: Rosa Arellano Goodman Meds and New Rx's Prescriptions: No Action pantoprazole 20 mg tablet,delayed release (DR/EC) 20 mg PO DAILY Qty: 90 3RF Rx Instructions: 04/13/23 Per GI. -hb nystatin 100,000 unit/gram powder 1 applic TP BID PRN (Reason: intertrigo) Qty: 30 5RF ascorbic acid (vitamin C) 1,000 MG tablet 1,000 mg PO DAILY (DME) Aerochamber Mini 1 EACH spacer 1 ea Inhalation PRN Qty: 1 Rx Instructions: DIRECTED WITH INHALER BiPAP Inhalation Gas 5 l IN DIRECTED Rx Instructions: sleep apnea ([facility] sleep lab 2013) uses with oxygen betamethasone, augmented 0.05 % lotion 1 applic topical BID PRN (Reason: allergic reaction) Qty: 60 2RF ipratropium-albuterol 0.5 mg-3 mg(2.5 mg base)/3 mL solution for nebulization 3 ml IH QID MDD 4 nebs Qty: 180 3RF sertraline 50 mg tablet 50 mg PO DAILY Qty: 90 3RF levothyroxine 200 mcg tablet 200 mcg PO DAILY Qty: 90 3RF furosemide 40 mg tablet 80 mg PO DAILY Qty: 180 3RF Rx Instructions: 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 [facility] [place] oxygen Inhalation 3 l Intranasal DIRECTED Patient Comments: Continuous and uses with bipap Rx Instructions: 3L/NC continuous albuterol sulfate 90 mcg/actuation HFA aerosol inhaler 1 - 2 puff Inhalation Q6H PRN Qty: 1 11RF alclometasone 0.05 % cream 1 applic topical BID PRN (Reason: itching) Qty: 45 1RF ketoconazole 2 % cream 1 applic topical BID PRN (Reason: facial rash) Qty: 60 1RF norethindrone acetate 5 mg tablet 10 mg PO BID Qty: 180 1RF docusate sodium [Colace] 100 mg Capsule 100 mg PO TID PRN PRNQty: 60 0RF ferrous sulfate 325 mg (65 mg iron) tablet 325 mg PO Q OTHER DAY Qty: 15 2RF
[2024-05-30 12:32] LABS: BE (Venous) 10 mmol/L (-2-3); HCO3 (Venous) 35 mmol/L (23-28); O2 Sat (Venous) 68 %; TCO2 (Venous) 32 mmol/L (24-29); pCO2 (Venous) 60 mmHg (41-51); pH (Venous) 7.38 (7.31-7.41); pO2 (Venous) 36 mmHg
[2024-05-30] MEDS: CIPROFLOXACIN 400 MG/200 ML BAG 200 MG IVPB (12:37)
[2024-05-30] MEDS: methylPREDNISolone SUCC 125 MG VIAL IVP (12:38)
[2024-05-30 12:40] LABS: Source Nasal/Nares
[2024-05-30 12:42] LABS: Abs Immature Grans 0.03 10^3/uL (0.0-0.06); Absolute Basophil Count 0.06 10^3/uL (0.0-0.2); Absolute Eosinophil Count 0.36 10^3/uL (0.0-0.7); Absolute Lymphocyte Count 1.51 10^3/uL (1.2-3.4); Absolute Monocyte Count 0.86 10^3/uL (0.1-0.8); Basophils % 0.5 %; Eosinophils % 3.2 %; HCT 40.2 % (36.0-46.0); Immature Grans % 0.3 %; Lymphocytes % 13.5 %; MCH 28.5 pg (27.0-33.0); MCHC 32.3 % (32.0-36.0); MCV 88 fL (80-95); MPV 11.3 fL (8.0-11.0); Monocytes % 7.7 %; Neutrophils % 74.8 %; Platelet Count 303 10^3/uL (130-400); RBC 4.56 10^6/uL (3.93-5.22); RDW-SD 52.3 fL; WBC 11.16 10^3/uL (4.4-10.8)
[2024-05-30 12:45] LABS: Absolute Neutrophil Count 8.35 10^3/uL (1.2-6.7)
[2024-05-30 12:56] LABS: ALT 285 U/L (14-59); AST 142 U/L (15-37); Albumin 2.3 g/dL (3.4-5.0); Alkaline Phosphatase 63 U/L (46-116); Anion Gap 5.1 mmol/L (3-11); BUN 10 mg/dL (7-18); CO2 33.9 mmol/L (21.0-32.0); CREATININE 0.7 mg/dL (0.55-1.02); Calcium 8.2 mg/dL (8.5-10.1); Chloride 100 mmol/L (98-107); Estimated GFR 94.15 (mL/min/1.73m2); Glucose 93 mg/dL (74-106); Magnesium 2.2 mg/dL (1.8-2.4); NT-proBNP 974 pg/mL (<300); Potassium 3.9 mmol/L (3.5-5.1); Sodium 139 mmol/L (136-145); Total Protein 7.2 g/dL (6.4-8.2); Troponin I 6 ng/L (<or=51)
--- NOTE | 2024-05-30 12:59 | DI.RAD_ITS ---
Exam(s) XR PORTABLE CHEST AP EXAM: XR PORTABLE CHEST AP CLINICAL HISTORY: SOB TECHNIQUE: 2D digital imaging was performed of the chest. One image was obtained. An AP view was ob tained. COMPARISON: CR,XR XR PORTABLE CHEST AP from 04/10/2024 FINDINGS: MEDIASTINUM: Normal. HEART: The heart is enlarged. PULMONARY VASCULATURE: There is prominence of the pulmonary vasculature suggesting pulmonary venous c ongestion. LUNGS: Bilateral pulmonary opacities are present. In light of the above findings this may reflect pu lmonary edema. An infectious process cannot be entirely excluded. PLEURAL SPACE: No pleural effusion or pneumothorax. BONE:Within normal limits for the patient's age. OTHER FINDINGS:Normal. IMPRESSION: 1. Heart appears to be mildly enlarged with pulmonary venous congestion suggesting fluid overload. 2. Bilateral pulmonary opacities which may represent pulmonary edema or pneumonia. Please correlate clinically. DATA REPOSITORY: RADIATION DOSE DELIVERED:
[2024-05-30 13:13] LABS: COVID-19 PCR Negative (Negative)
[2024-05-30] MEDS: Albuterol/Ipratropium 3 ML UPD VIAL (13:57)
--- NOTE | 2024-05-30 13:57 | W.PM.HP.N ---
Date of service: 05/30/24 Time of Service: 13:57 Assessment and Plan Assessment and plan (1) Acute and chronic respiratory failure with hypoxia: Status: Acute Assessment and plan: on home O2 at 3 liters nc at baseline, now requiring 5 liters possibly multifactoral with fluid overload and copd exacerbation add procal received IV lasix, IV steroids and antibiotics in the ED code status discussed and patient wishes for full code (2) Heart failure with preserved ejection fraction: Status: Acute Assessment and plan: EF 55% with RVSP 40% in march 2024 continue diuresis with IV lasix BID, add one dose of metolazone. I&O and daily weights (3) COPD (chronic obstructive pulmonary disease): Status: Acute Assessment and plan: Given high-dose IV steroids in the emergency department and ciprofloxacin Will continue daily prednisone 40 mg for 5 days no antibiotics indicated at this time Pro-Alejandro negative no fever white count 11 will continue to monitor Qualifiers: COPD type: COPD with acute exacerbation Qualified Code(s): J44.1 - Chronic obstructive pulmonary disease with (acute) exacerbation (4) DAVID (obstructive sleep apnea): Status: Chronic Assessment and plan: Continue home BiPAP (5) Hypothyroidism: Status: Chronic Assessment and plan: Continue Synthroid Qualifiers: Hypothyroidism type: postoperative Qualified Code(s): E89.0 - Postprocedural hypothyroidism (6) GERD (gastroesophageal reflux disease): Status: Chronic Assessment and plan: Continue home medication symptoms stable Discussed with Dr. Rahman History of Present Illness History of Present Illness Chief Complaint: shortness of breath Narrative: This is a super morbid obese female with past medical history of iron deficiency, copd, gerd, right ventricular dysfunction, DAVID who presented to the ED with 2 day history of increased shortness of breath, moist cough and increased oxygen requirements now up to 5 liters nasal canula with baseline of 3 liters. She was given IV lasix. CXR with no definite evidence of pneumonia. she was given IV steroids and cipro for suspected exacerbation of COPD. her symptoms stabilizing, hospitalist requested to admit to med/surg for further management and monitoring. Review of Systems All systems reviewed & are unremarkable except as noted in HPI and below PFSH All Active Problems (Updated 05/30/24 @ 16:57 by INESSA Ngo) Heart failure with preserved ejection fraction (Acute) Wound dehiscence (Acute) Thickened endometrium (Acute) Postmenopausal bleeding (Acute) COPD (chronic obstructive pulmonary disease) (Acute) Community acquired pneumonia (Acute) Acute and chronic respiratory failure with hypoxia (Acute) Laceration of dobson (Acute) GERD (gastroesophageal reflux disease) (Chronic) had negative barium esophagram in 11/2022. Anxiety (Chronic) Venous stasis dermatitis (Acute) Lymphedema (Chronic) Chronic headaches (Chronic) Recent Neurology consult for possible papilledema. Urinary incontinence (Chronic) On Detrol Recurrent UTI (Chronic) Right ventricular dysfunction (Chronic) Knee pain, bilateral (Chronic 07/23/14) s/p bilat TKR (left infected with mult surg and decreased mobility) Morbid obesity (Acute 04/05/13) Sensorineural hearing loss, bilateral (Chronic 08/29/13) Advance directive on file (Acute) Low back pain with sciatica (Chronic 05/03/14) [place] [facility] [place] Varicose veins of lower extremity (Chronic) Depression (Chronic) Grief at loss of child (Acute) Chronic respiratory failure with hypoxia and hypercapnia (Chronic) home BiPap Status post total bilateral knee replacement (Acute) Sprain of scapholunate ligament (Acute 03/21/19) DAVID (obstructive sleep apnea) (Chronic) on BiPap Hyperglycemia (Acute) Mixed conductive and sensorineural hearing loss of both ears (Acute) Right carpal tunnel syndrome (Acute) Arthritis of right hand (Acute) Impingement of right ulnar nerve (Acute) Dermoid cyst of neck (Acute) Hypothyroidism (Chronic) Microcalcifications of the breast (Acute) Neuropathy of left hand (Acute) Neuropathy of right hand (Acute) Bilateral carpal tunnel syndrome (Acute) Medical History Hx pulmonary embolism (~2015) treated with lovenox x 3 months Surgical History Status post thyroidectomy History of fasciotomy History of Surgical Procedure a. Right and left toal knee replacements. b. Left knee has been repeatedly operated on with slava surgies, three replacements. Replacement of total knee joint Bilateral; left-became sahpdsdv-nbzguiw-ryrfyazd surgeries Fasciotomy, Foot (~1996) LEFT Family History Mother Diabetes Personal history of malignant neoplasm LUNG Father Personal history of malignant neoplasm BRAIN Grandfather No problems noted. Grandfather No problems noted. Grandmother No problems noted. Grandmother No problems noted. Social History Smoking/Tobacco Use Status: Former Tobacco Use tobacco type: cigarettes Quit Date: 01/21/21 Second Hand Exposure: Yes Smoking risk assessment performed?: Yes Alcohol Intake: never Drug use: Never Substance use type: does not use Counseling given: No Housing: apartment Communication Needs: Hard of Hearing and Corrective Lenses Pets and animals: Yes Pets and animals: cat(s) Sexually active: Yes Current gender identity: female What is your relationship status?: never How often do you talk on the phone with friends or family?: decline to answer How often do you get together with friends or relatives?: decline to answer How often do you attend denominational or mandaen services?: decline to answer Do you belong to any clubs or organized social groups?: no Panel score (0-1 are the most socially isolated patients): 0 Seatbelt use: never Do you feel safe at home: Yes Do you feel safe in your relationship?: Yes Meds Allergies and Home Medications Allergies Allergy/AdvReac Type Severity Reaction Status Date / Time hydrocodone Allergy Severe ITCHING Verified 05/30/24 11:04 morphine Allergy Mild PRURITIS Verified 05/30/24 11:04 oxycodone Allergy Mild ITCHING Verified 05/30/24 11:04 Home Medications ?Medication ?Instructions ?Recorded ?Confirmed ?Type ascorbic acid (vitamin C) 1,000 mg 1,000 mg PO DAILY 11/25/12 05/30/24 History tablet inhalational spacing device ##1 12/21/13 05/30/24 History (Aerochamber Mini) Bipap 5 l IN DIRECTED 07/23/14 05/30/24 History betamethasone, augmented 0.05 % 1 applic topical BID PRN allergic 06/20/21 05/30/24 Rx lotion reaction #60 mL ipratropium 0.5 mg-albuterol 3 mg 3 ml inhalation QID COPD 10/16/22 05/30/24 Rx (2.5 mg base)/3 mL nebulization exacerbation/wheezing #180 mL soln pantoprazole 20 mg tablet,delayed 20 mg PO DAILY #90 tabs 08/04/23 05/30/24 Rx release sertraline 50 mg tablet 50 mg PO DAILY #90 tabs 10/13/23 05/30/24 Rx nystatin 100,000 unit/gram topical 1 applic topical BID PRN 02/14/24 05/30/24 Rx powder intertrigo #30 grams levothyroxine 200 mcg tablet 200 mcg PO DAILY #90 tabs 02/15/24 05/30/24 Rx furosemide 40 mg tablet 80 mg (2 x 40 mg) PO DAILY #180 03/13/24 05/30/24 Rx tabs oxygen 3 l intranasal DIRECTED 04/02/24 05/30/24 History docusate sodium 100 mg capsule 100 mg PO TID PRN PRN #60 caps 04/12/24 05/30/24 Rx (Colace) ferrous sulfate 325 mg (65 mg 325 mg PO Q OTHER DAY #15 tabs 04/12/24 05/30/24 Rx iron) tablet norethindrone acetate 5 mg tablet 10 mg (2 x 5 mg) PO BID #180 tabs 04/12/24 05/30/24 Rx albuterol sulfate 90 mcg/actuation 1 - 2 puff inhalation Q6H PRN ##1 04/14/24 05/30/24 Rx aerosol inhaler alclometasone 0.05 % topical cream 1 applic topical BID PRN itching 04/17/24 05/30/24 Rx #45 grams ketoconazole 2 % topical cream 1 applic topical BID PRN facial 04/17/24 05/30/24 Rx rash #60 grams Exam Const General: no acute distress Nutritional Appearance: obese Orientation: alert, awake and oriented x3 HENMT Head: normal to inspection, normocephalic and atraumatic Mouth: oral mucosae normal Eyes General: appearance normal, both eyes and all related structures Resp Effort & Inspection: normal respiratory effort Auscultation: rales (Coarse throughout) Cardio Rate: regular rate Rhythm: regular rhythm GI Inspection: large pannus and obesity Palpation: soft Extrem General: edema (Lymphedema) Laterality: bilateral Psych Mental Status: mental status grossly normal Speech and Movement: speech and movement normal Mood: congruent mood Results Labs 05/30/24 12:25 05/30/24 12:25 Labs: Laboratory Results - last 24 hr 05/30/24 05/30/24 05/30/24 12:25 12:35 14:33 WBC 11.16 H RBC 4.56 Hgb 13.0 Hct 40.2 MCV 88 MCH 28.5 MCHC 32.3 RDW 16.0 H Plt Count 303 MPV 11.3 H Immature Gran % 0.3 Neutrophils % 74.8 Lymphocytes % 13.5 Monocytes % 7.7 Eosinophils % 3.2 Basophils % 0.5 Nucleated RBC % 0.0 Absolute Neutrophils 8.35 H Absolute Lymphocytes 1.51 Absolute Monocytes 0.86 H Absolute Eosinophils 0.36 Absolute Basophils 0.06 VBG pH 7.38 VBG pCO2 60 H VBG pO2 36 VBG HCO3 35 H VBG Total CO2 32 H VBG O2 Saturation 68 VBG Base Excess 10 H VBG Lactate 1.0 Sodium 139 Potassium 3.9 Chloride 100 Carbon Dioxide 33.9 H Anion Gap 5.1 BUN 10 Creatinine 0.7 Est GFR (CKD-EPI 2020) 94.15 Glucose 93 Calcium 8.2 L Magnesium 2.2 Total Bilirubin 1.10 H AST 142 H ALT 285 H Alkaline Phosphatase 63 Troponin I 6 Cancelled NT-Pro-B Natriuret Pep 974 H Total Protein 7.2 Albumin 2.3 L COVID-19 Source Nasal/Nares SARS-CoV-2 (PCR) Negative Last Vital Signs Temp 36.9 C 05/30/24 11:12 Pulse 76 05/30/24 11:49 Resp 29 H 05/30/24 11:49 BP 138/72 05/30/24 11:12 Pulse Ox 92 05/30/24 11:51 Time Spent Time spent with Patient: 55-74 minutes Time was spent: preparing to see the patient(eg.review tests), obtaining and/or reviewing separately otained hiistory, ordering medications,tests, procedures, indepentently interpreting results and counseling the patient
[2024-05-30] MEDS: Furosemide 40 MG/4 ML VIAL IVP (13:58)
[2024-05-30 14:00] LABS: Lab Add On Test DONE
[2024-05-30 14:30] LABS: Troponin I 6 ng/L (<or=51)
[2024-05-30 14:39] LABS: Procalcitonin 0.1 ng/mL
--- NOTE | 2024-05-30 15:50 | W.PC.ACHO ---
Registration Status: Primary Language: Preferred Language: ED Information & Data Chief Complaint SOB 05/30/24 12:05 Triage Note s/s started tuesday, SOB, 05/30/24 11:00 wet cough, crackles. 79% 3 L . has baseline o2 requirement. Medical / Surgical History (Last Reviewed 04/11/24 @ 07:03 by Sunny Medina) Pneumonia Hx pulmonary embolism (~2015) (Last Reviewed 04/11/24 @ 07:03 by Sunny Medina) Status post thyroidectomy History of fasciotomy History of Surgical Procedure Replacement of total knee joint Fasciotomy, Foot (~1996) Most Recent Vital Signs Temperature 36.9 C 05/30/24 11:12 Temperature Source Temporal Artery Scan 05/30/24 11:12 Pulse 75 05/30/24 14:16 Pulse 79 05/30/24 15:10 Respiratory Rate 15 05/30/24 15:10 Respiratory Effort Short of Breath, Labored 05/30/24 11:12 Respiratory Depth Deep 05/30/24 11:12 Respiratory Pattern Tachypnea 05/30/24 11:12 Blood Pressure 141/72 H 05/30/24 14:16 Blood Pressure Mean 85 05/30/24 14:16 Blood Pressure Position Sitting 05/30/24 11:12 Pulse Oximetry 89 L 05/30/24 15:10 Oxygen Delivery Method Nasal Cannula 05/30/24 13:57 Oxygen Flow Rate 5 05/30/24 13:57 Allergies hydrocodone Allergy (Severe, Verified 05/30/24 11:04) ITCHING morphine Allergy (Mild, Verified 05/30/24 11:04) PRURITIS oxycodone Allergy (Mild, Verified 05/30/24 11:04) ITCHING Precautions Isolation Standard precaution 05/30/24 11:12 IV IV Catheter Type [Right Peripheral IV Forearm] IV Catheter Gauge [Right 20 Forearm] Diagnostics 05/30/24 05/30/24 05/30/24 Range/Units 14:33 13:51 13:15 WBC (4.4-10.8) 10^3/uL RBC (3.93-5.22) 10^6/uL Hgb (11.2-15.7) g/dL Hct (36.0-46.0) % MCV (80-95) fL MCH (27.0-33.0) pg MCHC (32.0-36.0) % RDW (11.7-14.6) % Plt Count (130-400) 10^3/uL MPV (8.0-11.0) fL Immature Gran % % Neutrophils % % Lymphocytes % % Monocytes % % Eosinophils % % Basophils % % Nucleated RBC % (0.0-0.3) % Absolute Neutrophils (1.2-6.7) 10^3/uL Absolute Lymphocytes (1.2-3.4) 10^3/uL Absolute Monocytes (0.1-0.8) 10^3/uL Absolute Eosinophils (0.0-0.7) 10^3/uL Absolute Basophils (0.0-0.2) 10^3/uL VBG pH (7.31-7.41) VBG pCO2 (41-51) mmHg VBG pO2 mmHg VBG HCO3 (23-28) mmol/L VBG Total CO2 (24-29) mmol/L VBG O2 Saturation % VBG Base Excess (-2-3) mmol/L VBG Lactate (0.6-1.4) mmol/L Sodium (136-145) mmol/L Potassium (3.5-5.1) mmol/L Chloride (98-107) mmol/L Carbon Dioxide (21.0-32.0) mmol/L Anion Gap (3-11) mmol/L BUN (7-18) mg/dL Creatinine (0.55-1.02) mg/dL Est GFR (CKD-EPI 2020) (mL/min/1.73m2) Glucose (74-106) mg/dL Calcium (8.5-10.1) mg/dL Magnesium (1.8-2.4) mg/dL Total Bilirubin (0.2-1.0) mg/dL AST (15-37) U/L ALT (14-59) U/L Alkaline Phosphatase (46-116) U/L Troponin I Cancelled 6 (<or=51) ng/L NT-Pro-B Natriuret Pep (<300) pg/mL Total Protein (6.4-8.2) g/dL Albumin (3.4-5.0) g/dL Procalcitonin 0.1 ng/mL COVID-19 Source SARS-CoV-2 (PCR) (Negative) Add-On Test Request DONE 05/30/24 05/30/24 Range/Units 12:35 12:25 WBC 11.16 H (4.4-10.8) 10^3/uL RBC 4.56 (3.93-5.22) 10^6/uL Hgb 13.0 (11.2-15.7) g/dL Hct 40.2 (36.0-46.0) % MCV 88 (80-95) fL MCH 28.5 (27.0-33.0) pg MCHC 32.3 (32.0-36.0) % RDW 16.0 H (11.7-14.6) % Plt Count 303 (130-400) 10^3/uL MPV 11.3 H (8.0-11.0) fL Immature Gran % 0.3 % Neutrophils % 74.8 % Lymphocytes % 13.5 % Monocytes % 7.7 % Eosinophils % 3.2 % Basophils % 0.5 % Nucleated RBC % 0.0 (0.0-0.3) % Absolute Neutrophils 8.35 H (1.2-6.7) 10^3/uL Absolute Lymphocytes 1.51 (1.2-3.4) 10^3/uL Absolute Monocytes 0.86 H (0.1-0.8) 10^3/uL Absolute Eosinophils 0.36 (0.0-0.7) 10^3/uL Absolute Basophils 0.06 (0.0-0.2) 10^3/uL VBG pH 7.38 (7.31-7.41) VBG pCO2 60 H (41-51) mmHg VBG pO2 36 mmHg VBG HCO3 35 H (23-28) mmol/L VBG Total CO2 32 H (24-29) mmol/L VBG O2 Saturation 68 % VBG Base Excess 10 H (-2-3) mmol/L VBG Lactate 1.0 (0.6-1.4) mmol/L Sodium 139 (136-145) mmol/L Potassium 3.9 (3.5-5.1) mmol/L Chloride 100 (98-107) mmol/L Carbon Dioxide 33.9 H (21.0-32.0) mmol/L Anion Gap 5.1 (3-11) mmol/L BUN 10 (7-18) mg/dL Creatinine 0.7 (0.55-1.02) mg/dL Est GFR (CKD-EPI 2020) 94.15 (mL/min/1.73m2) Glucose 93 (74-106) mg/dL Calcium 8.2 L (8.5-10.1) mg/dL Magnesium 2.2 (1.8-2.4) mg/dL Total Bilirubin 1.10 H (0.2-1.0) mg/dL AST 142 H (15-37) U/L ALT 285 H (14-59) U/L Alkaline Phosphatase 63 (46-116) U/L Troponin I 6 (<or=51) ng/L NT-Pro-B Natriuret Pep 974 H (<300) pg/mL Total Protein 7.2 (6.4-8.2) g/dL Albumin 2.3 L (3.4-5.0) g/dL Procalcitonin ng/mL COVID-19 Source Nasal/Nares SARS-CoV-2 (PCR) Negative (Negative) Add-On Test Request 05/30/24 12:57 Sputum Culture - Pending Sputum Gram Stain - Final 05/30/24 12:25 Blood Culture - Pending Blood Intake and Output - 24 Hour Total 05/30/24 10:45 thru 05/30/24 11:00 Weight 199.581 kg Falls Risk Assessment History of Falls No History 05/30/24 11:12 Fall Total Score 0 05/30/24 11:12 Level of Risk Standard/Low Risk 05/30/24 11:12 Problems (Last Reviewed 04/11/24 @ 07:03 by Sunny Medina) Heart failure with preserved ejection fraction (Acute) COPD (chronic obstructive pulmonary disease) (Acute) Acute and chronic respiratory failure with hypoxia (Acute) GERD (gastroesophageal reflux disease) (Chronic) DAVID (obstructive sleep apnea) (Chronic) Hypothyroidism (Chronic) v v v v v v v v v Sending and/or Receiving Nurses: Please use comment section below to note any information pertinent to the patient hand-off not included above. Information / Comments: Pt presented w/ SOB, currently on 5L. Report received from: MARINA Cam Nurse
--- NOTE | 2024-05-30 16:02 | PHA.REVIEW2 ---
Pharmacy Admission Review Admission Clinical Review Admission Pharmacy Review: Heart failure with preserved ejection fraction (Acute) COPD (chronic obstructive pulmonary disease) (Acute) Acute and chronic respiratory failure with hypoxia (Acute) hydrocodone Allergy (Severe, Verified 05/30/24 11:04) ITCHING morphine Allergy (Mild, Verified 05/30/24 11:04) PRURITIS oxycodone Allergy (Mild, Verified 05/30/24 11:04) ITCHING Resuscitation Status Full Code Height 5 ft 3 in Weight 199.581 kg Pharmacy Admission Review Renal Dosing Renal Dosing: BUN 10 mg/dL (7-18) 05/30/24 12:25 Creatinine 0.7 mg/dL (0.55-1.02) 05/30/24 12:25 Medications needing adjustments: Reviewed (CrCl 94.58 mL/min) List of meds needing interventions: Current medications are okay Anticoagulation Anticoagulation: Hgb 13.0 g/dL (11.2-15.7) 05/30/24 12:25 Hct 40.2 % (36.0-46.0) 05/30/24 12:25 Plt Count 303 10^3/uL (130-400) 05/30/24 12:25 Creatinine 0.7 mg/dL (0.55-1.02) 05/30/24 12:25 DVT Prophylaxis: Reviewed (BMI > 60 (77.9)) Medications: Enoxaparin (60mg BID) Relevant Labs Relevant Labs: Sodium 139 mmol/L (136-145) 05/30/24 12:25 Potassium 3.9 mmol/L (3.5-5.1) 05/30/24 12:25 Chloride 100 mmol/L (98-107) 05/30/24 12:25 Magnesium 2.2 mg/dL (1.8-2.4) 05/30/24 12:25 Electrolytes, C-Reactive P, ESR: Reviewed (WBC 11.16, AST/ALT 142/285, cultures pending for blood and sputum) Cardiac Review Cardiac Review: Troponin I Cancelled 05/30/24 14:33 NT-Pro-B Natriuret Pep 974 pg/mL (<300) H 05/30/24 12:25 Blood Pressure 141/72 1416 Blood Pressure 153/65 1401 Blood Pressure 111/59 1346 Blood Pressure 126/52 1332 Blood Pressure 120/60 1316 Blood Pressure 154/51 1301 Blood Pressure 157/65 1246 Blood Pressure 157/61 1244 Blood Pressure 126/42 1116 Blood Pressure 138/72 1112 BP, HR, EF%: Reviewed (HR WNL, Ox 89) List meds needing interventions: Has order for furosemide IVP BID. Current oxygen flow rate is 5 (3 @ baseline per H+P) QTc Review QTc: Reviewed (456 from 04/10/24 - most recent EKG on file) IV to PO Switch IV Medications: Reviewed (furosemide) Home Meds Home Med List reviewed: Intervened Relevent Home Meds Not ordered & why?: alclometasone cream (PRN) and betamethasone lotion (PRN) Called nursing to verify with patient what day they take their ferrous sulfate (every other day). Leaving order unverified for now, will pend if I don't hear back before end of shift and then call nursing again tomorrow. Current Meds Current Medication Order Review: Intervened Comments: Added 2nd PRN to ketoconazole and nystatin orders per pharmacy protocol Changed timing of levothyroxine from 0830 to 0600 per pharmacy protocol Changed timing of pantoprazole from 0830 to 0730 per pharmacy protocol Added IV admission order set
[2024-05-30] MEDS: metOLazone 2.5 MG TAB 5 MG PO (16:40)
[2024-05-30] MEDS: Normal Saline Flush 10 ML SYR IVP ×2 (17:28→22:01)
[2024-05-30] MEDS: Furosemide 80 MG TAB PO (19:06)
[2024-05-30] MEDS: Norethindrone 5 MG TAB 10 MG PO (22:01)
[2024-05-30] MEDS: Enoxaparin 60 MG/0.6 ML SYR SC (22:01)
[2024-05-31] VITALS (9 sets, daily range): BP systolic 112–150; BP diastolic 60–70; PULSE 77–90; RESP 2–25; TEMP 36.4–37.3; O2SAT 89–95
[2024-05-31] MEDS: Levothyroxine 100 MCG TAB 200 MCG PO (05:21)
[2024-05-31 06:44] LABS: Abs Immature Grans 0.04 10^3/uL (0.0-0.06); Absolute Basophil Count 0.01 10^3/uL (0.0-0.2); Absolute Monocyte Count 0.39 10^3/uL (0.1-0.8); Absolute Neutrophil Count 8.05 10^3/uL (1.2-6.7); Basophils % 0.1 %; HCT 39.6 % (36.0-46.0); HGB 12.9 g/dL (11.2-15.7); Immature Grans % 0.4 %; Lymphocytes % 12.4 %; MCHC 32.6 % (32.0-36.0); MCV 86 fL (80-95); MPV 11.3 fL (8.0-11.0); Neutrophils % 83.1 %; Platelet Count 349 10^3/uL (130-400); RBC 4.61 10^6/uL (3.93-5.22); RDW 15.8 % (11.7-14.6); RDW-SD 49.4 fL; WBC 9.69 10^3/uL (4.4-10.8)
[2024-05-31 07:11] LABS: ALT 400 U/L (14-59); AST 303 U/L (15-37); Albumin 2.2 g/dL (3.4-5.0); Alkaline Phosphatase 62 U/L (46-116); Anion Gap 6.2 mmol/L (3-11); BUN 9 mg/dL (7-18); Bilirubin, Total 0.95 mg/dL (0.2-1.0); CO2 35.8 mmol/L (21.0-32.0); CREATININE 0.7 mg/dL (0.55-1.02); Calcium 8.1 mg/dL (8.5-10.1); Chloride 97 mmol/L (98-107); Estimated GFR 94.15 (mL/min/1.73m2); Glucose 139 mg/dL (74-106); Potassium 3.9 mmol/L (3.5-5.1); Sodium 139 mmol/L (136-145); Total Protein 7.3 g/dL (6.4-8.2)
[2024-05-31] MEDS: Enoxaparin 60 MG/0.6 ML SYR SC ×2 (08:42→21:25)
[2024-05-31] MEDS: Pantoprazole 20 MG TABCR PO (08:42)
[2024-05-31] MEDS: Sertraline 50 MG TAB PO (08:42)
[2024-05-31] MEDS: Ferrous Sulfate 325 MG TAB PO (08:42)
[2024-05-31] MEDS: Norethindrone 5 MG TAB 10 MG PO ×2 (08:43→21:25)
[2024-05-31] MEDS: predniSONE 20 MG TAB 40 MG PO (08:43)
[2024-05-31] MEDS: Ascorbic Acid 500 MG TAB 1000 MG PO (08:43)
[2024-05-31] MEDS: Normal Saline Flush 10 ML SYR IVP ×3 (08:44→21:26)
[2024-05-31] MEDS: Furosemide 40 MG/4 ML VIAL IVP ×2 (08:44→15:35)
[2024-05-31] MEDS: Albuterol/Ipratropium 3 ML UPD VIAL UPD ×3 (09:06→20:24)
--- NOTE | 2024-05-31 09:15 | INITIAL_ITS ---
Date of service: 05/31/24 Time of Service: 09:16 Care Management Initial Assmt Initial Assessment Reason for Hospitalization: Hypoxic respiratory failure Functional Status/Living Situation Patient Presentation: Radha presented to the ED yesterday with 2 day history of increased shortness of breath, moist cough and increased oxygen requirements now up to 5 liters nasal canula with baseline of 3 liters. When CM met with her today, she was on 4L of O2, she was breathing heavily and was audibly wheezing. She was pleasant and conversed readily. Radha is basically wheelchair bound, but is able to transfer herself in and out of bed, and to the commode. She told CM that she does her own cooking and shopping. She will drive in her wheelchair good distances when needed. She does not drive. Radha lives with her boyfriend in [facility]. She often cares for her 19month granddaughter during the week while her son works. Radha lit up when she talked about her granddaughter, Maria Luz. Town of Residence: [place] [facility] Resides with: Other (lives with her boyfriend, Galo) Significant Other/Family: Local (3 children and 3 grandchildren, most of whom live locally. Sister in [facility], whom she sees often and speaks to every day. ) Natural Supports: Family, Galo and her next door neighbor Employment Status: Disabled Activities/Hobbies/SocialSupport: Radha really likes to cook. She uses her Instapot and her airfryer alot, as she is not able to stand. She likes to try new recipes, and loves having people over to eat. Medications Medication Management: No Issues/Barriers identified Physical Functioning/Mobility Assistive Device: wheelchair Advance Directives Advance Directives: Do you have an Advance Directive: Y 04/11/24 07:49 AD On File at [facility]: Y 04/11/24 07:49 Date Asked 05/30/24 05/30/24 11:10 AD Date Reviewed 05/30/24 05/30/24 11:06 COLST On File at [facility] COLST Date Scanned Code Status Resuscitation Status Full Code Insurance Coverage/Financial Issues Insurance: [employer] Medicare Replacement Financial Issues: denies Care Team Visit Care Team Role Provider Type Alphonso Murphy MD Primary Care Provider [facility] STAFF PHYSICIAN INESSA Ngo Emergency Provider [facility] Brandan Hicks Admit Provider [facility] STAFF PHYSICIAN Attending Provider Discharge Potential Discharge Needs: PCP F/U Appt Anticipated Barriers to Discharge: None Identified Patient/Family Education Needs: Review discharge instructions, discuss Ask Me Three Transportation: Private vehicle Plan: Anticipate Radha will be discharged home with continuation of her HH RN and PT. Would like to add new OT, as Radha stated she sometimes has difficulty getting herself washed up. She will follow up with her community providers and plan of care and transport with family if discharge can be coordinated for after 5pm. She brought the wrong keys with her to the hospital, and does not have a door hickman. She can not get in her apartment until after 2pm. CM will follow and continue to support Radha and her discharge needs. PFSH All Active Problems (Updated 05/30/24 @ 16:57 by INESSA Ngo) Heart failure with preserved ejection fraction (Acute) Wound dehiscence (Acute) Thickened endometrium (Acute) Postmenopausal bleeding (Acute) COPD (chronic obstructive pulmonary disease) (Acute) Community acquired pneumonia (Acute) Acute and chronic respiratory failure with hypoxia (Acute) Laceration of dobson (Acute) GERD (gastroesophageal reflux disease) (Chronic) had negative barium esophagram in 11/2022. Anxiety (Chronic) Venous stasis dermatitis (Acute) Lymphedema (Chronic) Chronic headaches (Chronic) Recent Neurology consult for possible papilledema. Urinary incontinence (Chronic) On Detrol Recurrent UTI (Chronic) Right ventricular dysfunction (Chronic) Knee pain, bilateral (Chronic 07/23/14) s/p bilat TKR (left infected with mult surg and decreased mobility) Morbid obesity (Acute 04/05/13) Sensorineural hearing loss, bilateral (Chronic 08/29/13) Advance directive on file (Acute) Low back pain with sciatica (Chronic 05/03/14) [place] [facility] [place] Varicose veins of lower extremity (Chronic) Depression (Chronic) Grief at loss of child (Acute) Chronic respiratory failure with hypoxia and hypercapnia (Chronic) home BiPap Status post total bilateral knee replacement (Acute) Sprain of scapholunate ligament (Acute 03/21/19) DAVID (obstructive sleep apnea) (Chronic) on BiPap Hyperglycemia (Acute) Mixed conductive and sensorineural hearing loss of both ears (Acute) Right carpal tunnel syndrome (Acute) Arthritis of right hand (Acute) Impingement of right ulnar nerve (Acute) Dermoid cyst of neck (Acute) Hypothyroidism (Chronic) Microcalcifications of the breast (Acute) Neuropathy of left hand (Acute) Neuropathy of right hand (Acute) Bilateral carpal tunnel syndrome (Acute) Medical History Hx pulmonary embolism (~2015) treated with lovenox x 3 months Surgical History Status post thyroidectomy History of fasciotomy History of Surgical Procedure a. Right and left toal knee replacements. b. Left knee has been repeatedly operated on with slava surgies, three replacements. Replacement of total knee joint Bilateral; left-became sxgexfmx-uxcovuu-qyfblugk surgeries Fasciotomy, Foot (~1996) LEFT Family History Mother Diabetes Personal history of malignant neoplasm LUNG Father Personal history of malignant neoplasm BRAIN Grandfather No problems noted. Grandfather No problems noted. Grandmother No problems noted. Grandmother No problems noted. Social History Smoking/Tobacco Use Status: Former Tobacco Use tobacco type: cigarettes Quit Date: 01/21/21 Second Hand Exposure: Yes Smoking risk assessment performed?: Yes Alcohol Intake: never Drug use: Never Substance use type: does not use Counseling given: No Housing: apartment Communication Needs: Hard of Hearing and Corrective Lenses Pets and animals: Yes Pets and animals: cat(s) Sexually active: Yes Current gender identity: female What is your relationship status?: never How often do you talk on the phone with friends or family?: decline to answer How often do you get together with friends or relatives?: decline to answer How often do you attend congregational or scientologist services?: decline to answer Do you belong to any clubs or organized social groups?: no Panel score (0-1 are the most socially isolated patients): 0 Seatbelt use: never Do you feel safe at home: Yes Do you feel safe in your relationship?: Yes Readmission Within the Past 30 Days Yes or No: No SDOH(Care Management) Screening Will the Patient Participate in the Screening?: Yes Do you worry about having a steady place to live?: no Problems where you live: no known problems In the past 12 months, have you had to go without electric, gas, oil or water in your home?: no Have you or anyone in your house had to go without enough food to eat?: no Has lack of transportation kept you from medical appointments or from doing things needed for daily living?: no Has anyone in your support network made you feel unsafe for any reason?: no Anticipated HH Services Anticipated HH Services at [facility], PT and RN (new OT).
--- NOTE | 2024-05-31 10:41 | PGE_ITS ---
Date of Service Date of service: 05/31/24 Time of Service: 10:42 Assessment and Plan Assessment and plan (1) Acute and chronic respiratory failure with hypoxia: Status: Acute Assessment and plan: Oxygen at home at baseline 3 l/min, on arrival 5l/min were required - improvement in O2 requirement today- Continue to wean oxygen as tolerated Most likely multifactoral with fluid overload and copd exacerbation Received IV lasix, IV steroids and antibiotics in the ED. In the setting of a negative procalcitonin, the absence of fever but increase in the quantity of sputum and increased cough as well as change in consistency- color, we will Will continue steroids for COPD exacerbation, as well as doxycycline in the setting of improving WBC (2) Heart failure with preserved ejection fraction: Status: Acute Assessment and plan: As per Echocardiogram report in 03/2024, LVEF 55% with RVSP 40% Continue IV lasix BID PICC/Midline placement consult Consider adding metalozone if needed ( received a dose on 05/20) and U/O was about 2.5 to 3.0 liters overnight Continue strict I&O and daily weights Limited echo to assess decrease in function PT consult (3) COPD (chronic obstructive pulmonary disease): Status: Acute Assessment and plan: High-dose IV steroids in the emergency department and ciprofloxacin given in the ED Procal was negative , WBC is improving Will continue daily prednisone 40 mg for 5 day-course , but in the setting of increased sputum production and cough will order doxycycline oral for exacerbation of COPD Qualifiers: COPD type: COPD with acute exacerbation Qualified Code(s): J44.1 - Chronic obstructive pulmonary disease with (acute) exacerbation (4) DAVID (obstructive sleep apnea): Status: Chronic Assessment and plan: On home BiPAP as per home settings (5) Hypothyroidism: Status: Chronic Assessment and plan: Continue home dose levothryoxine Qualifiers: Hypothyroidism type: postoperative Qualified Code(s): E89.0 - Postprocedural hypothyroidism (6) GERD (gastroesophageal reflux disease): Status: Chronic Assessment and plan: Continue home medication symptoms stable Discussed with Dr. Rahman Subjective Subjective Patient reports: no new complaints, tolerating liquids well, tolerating a regular diet, flatus, no bowel movement, shortness of breath and fever; denies diarrhea, nausea or vomiting Exam Narrative Exam Narrative: Constitutional The patient is in bed, upper airway wheezing heard but improving with change in position HENMT: Facial structures with normal appearance Neuro:alert and oriented to self, person, place, time and situation. Nonfocal Resp: Coarse breath sound to left lower lung dubose?diminished right base , upper airway wheezing Cardio: regular rhythm, S1, S2, no murmur, bilateral radial and dorsalis pedis pulses are positive GI: Abdomen is large, not distended, soft and non tender, bowel sounds are present Extremities: Moves all 4 extremities Psych: RASS 0, congruent mood and normal affect. Objective Last Vital Signs Temp 36.4 C L 05/31/24 07:48 Pulse 77 05/31/24 09:06 Resp 16 05/31/24 09:06 BP 150/63 H 05/31/24 07:48 Pulse Ox 89 L 05/31/24 07:48 Laboratory Results - last 24 hr 05/30/24 05/30/24 05/30/24 12:25 12:35 13:15 WBC 11.16 H RBC 4.56 Hgb 13.0 Hct 40.2 MCV 88 MCH 28.5 MCHC 32.3 RDW 16.0 H Plt Count 303 MPV 11.3 H Immature Gran % 0.3 Neutrophils % 74.8 Lymphocytes % 13.5 Monocytes % 7.7 Eosinophils % 3.2 Basophils % 0.5 Nucleated RBC % 0.0 Absolute Neutrophils 8.35 H Absolute Lymphocytes 1.51 Absolute Monocytes 0.86 H Absolute Eosinophils 0.36 Absolute Basophils 0.06 VBG pH 7.38 VBG pCO2 60 H VBG pO2 36 VBG HCO3 35 H VBG Total CO2 32 H VBG O2 Saturation 68 VBG Base Excess 10 H VBG Lactate 1.0 Sodium 139 Potassium 3.9 Chloride 100 Carbon Dioxide 33.9 H Anion Gap 5.1 BUN 10 Creatinine 0.7 Est GFR (CKD-EPI 2020) 94.15 Glucose 93 Calcium 8.2 L Magnesium 2.2 Total Bilirubin 1.10 H AST 142 H ALT 285 H Alkaline Phosphatase 63 Troponin I 6 NT-Pro-B Natriuret Pep 974 H Total Protein 7.2 Albumin 2.3 L Procalcitonin 0.1 COVID-19 Source Nasal/Nares SARS-CoV-2 (PCR) Negative Add-On Test Request 05/30/24 05/30/24 05/31/24 13:51 14:33 06:10 WBC 9.69 RBC 4.61 Hgb 12.9 Hct 39.6 MCV 86 MCH 28.0 MCHC 32.6 RDW 15.8 H Plt Count 349 MPV 11.3 H Immature Gran % 0.4 Neutrophils % 83.1 Lymphocytes % 12.4 Monocytes % 4.0 Eosinophils % 0.0 Basophils % 0.1 Nucleated RBC % 0.0 Absolute Neutrophils 8.05 H Absolute Lymphocytes 1.20 Absolute Monocytes 0.39 Absolute Eosinophils 0.00 Absolute Basophils 0.01 VBG pH VBG pCO2 VBG pO2 VBG HCO3 VBG Total CO2 VBG O2 Saturation VBG Base Excess VBG Lactate Sodium 139 Potassium 3.9 Chloride 97 L Carbon Dioxide 35.8 H Anion Gap 6.2 BUN 9 Creatinine 0.7 Est GFR (CKD-EPI 2020) 94.15 Glucose 139 H Calcium 8.1 L Magnesium Total Bilirubin 0.95 AST 303 H ALT 400 H Alkaline Phosphatase 62 Troponin I 6 Cancelled NT-Pro-B Natriuret Pep Total Protein 7.3 Albumin 2.2 L Procalcitonin COVID-19 Source SARS-CoV-2 (PCR) Add-On Test Request DONE Time Spent with Patient Time Spent with Patient: >50 minutes Time was spent: preparing to see the patient(eg.review tests), obtaining and/or reviewing separately otained hiistory, ordering medications,tests, procedures, referring, communicating with other health primary care physician, indepentently interpreting results, counseling the patient and care coordination
[2024-05-31] MEDS: Perflutren Lipid Microspheres 1.5 ML VIAL IVP (12:43)
[2024-05-31] MEDS: Protein Nutritional Supplement 16 GM 1 OUNCE PACKET PO (15:34)
[2024-05-31] MEDS: Doxycycline Hyclate 100 MG CAP PO (18:27)
[2024-06-01] VITALS (7 sets, daily range): BP systolic 120–129; BP diastolic 59–76; PULSE 69–80; RESP 5–22; TEMP 36.2–36.6; O2SAT 90–94
[2024-06-01] MEDS: Levothyroxine 100 MCG TAB 200 MCG PO (06:04)
[2024-06-01] MEDS: Doxycycline Hyclate 100 MG CAP PO ×2 (06:04→18:03)
[2024-06-01 06:49] LABS: Abs Immature Grans 0.04 10^3/uL (0.0-0.06); Absolute Basophil Count 0.03 10^3/uL (0.0-0.2); Absolute Lymphocyte Count 1.98 10^3/uL (1.2-3.4); Absolute Monocyte Count 1.27 10^3/uL (0.1-0.8); Basophils % 0.3 %; Eosinophils % 0.4 %; HCT 39.9 % (36.0-46.0); HGB 12.9 g/dL (11.2-15.7); Immature Grans % 0.4 %; Lymphocytes % 17.5 %; MCHC 32.3 % (32.0-36.0); MCV 87 fL (80-95); MPV 11.2 fL (8.0-11.0); Monocytes % 11.2 %; Neutrophils % 70.2 %; Platelet Count 355 10^3/uL (130-400); RDW 15.8 % (11.7-14.6); RDW-SD 49.7 fL; WBC 11.34 10^3/uL (4.4-10.8)
[2024-06-01 06:53] LABS: Absolute Eosinophil Count 0.05 10^3/uL (0.0-0.7); Absolute Neutrophil Count 7.96 10^3/uL (1.2-6.7)
[2024-06-01 07:13] LABS: Anion Gap 2.7 mmol/L (3-11); BUN 13 mg/dL (7-18); CO2 41.3 mmol/L (21.0-32.0); CREATININE 0.7 mg/dL (0.55-1.02); Calcium 7.9 mg/dL (8.5-10.1); Chloride 96 mmol/L (98-107); Estimated GFR 94.15 (mL/min/1.73m2); Glucose 105 mg/dL (74-106); Magnesium 1.9 mg/dL (1.8-2.4); Potassium 3.2 mmol/L (3.5-5.1); Sodium 140 mmol/L (136-145)
[2024-06-01] MEDS: Ascorbic Acid 500 MG TAB 1000 MG PO (07:49)
[2024-06-01] MEDS: Norethindrone 5 MG TAB 10 MG PO ×2 (07:49→20:37)
[2024-06-01] MEDS: predniSONE 20 MG TAB 40 MG PO (07:49)
[2024-06-01] MEDS: Enoxaparin 60 MG/0.6 ML SYR SC ×2 (07:50→20:38)
[2024-06-01] MEDS: Pantoprazole 20 MG TABCR PO (07:50)
[2024-06-01] MEDS: Sertraline 50 MG TAB PO (07:50)
[2024-06-01] MEDS: Furosemide 40 MG/4 ML VIAL IVP ×2 (07:51→16:09)
[2024-06-01] MEDS: Normal Saline Flush 10 ML SYR IVP (07:51)
[2024-06-01] MEDS: Albuterol/Ipratropium 3 ML UPD VIAL UPD (08:21)
--- NOTE | 2024-06-01 08:50 | IN_ITS ---
PT Notes Visit Reasons: Hypoxic respiratory failure Physical Therapy Inpatient Initial Evaluation Date: 06/01/2024 Referring Doctor: Zoila De La Garza NP PT Orders: PT CONSULT: 'Safety Consult for D/C. Baseline limited mobility, resp infection improving Precautions: Fall. Standard. Activity as tolerated. Admitting Daignoses/Patient Profile: Radha is a 69-year-old female with past medical history significant for B LE lymphedema, low back pain, L3-L4 spinal stenosis, and multiple L knee surgeries and R TKA who admitted for management of acute on chroninc respiratory failure with hypoxia, heart failure with preserved EF, COPD, DAVID, hypothyroidism, and GERD. PMHx: All Active Problems (Updated 05/30/24 @ 16:57 by INESSA Ngo) Heart failure with preserved ejection fraction (Acute) Wound dehiscence (Acute) Thickened endometrium (Acute) Postmenopausal bleeding (Acute) COPD (chronic obstructive pulmonary disease) (Acute) Community acquired pneumonia (Acute) Acute and chronic respiratory failure with hypoxia (Acute) Laceration of dobson (Acute) GERD (gastroesophageal reflux disease) (Chronic) had negative barium esophagram in 11/2022. Anxiety (Chronic) Venous stasis dermatitis (Acute) Lymphedema (Chronic) Chronic headaches (Chronic) Recent Neurology consult for possible papilledema. Urinary incontinence (Chronic) On Detrol Recurrent UTI (Chronic) Right ventricular dysfunction (Chronic) Knee pain, bilateral (Chronic 07/23/14) s/p bilat TKR (left infected with mult surg and decreased mobility) Morbid obesity (Acute 04/05/13) Sensorineural hearing loss, bilateral (Chronic 08/29/13) Advance directive on file (Acute) Low back pain with sciatica (Chronic 05/03/14) [place] [facility] [place]4 [place] stenosis Varicose veins of lower extremity (Chronic) Depression (Chronic) Grief at loss of child (Acute) Chronic respiratory failure with hypoxia and hypercapnia (Chronic) home BiPap Status post total bilateral knee replacement (Acute) Sprain of scapholunate ligament (Acute 03/21/19) DAVID (obstructive sleep apnea) (Chronic) on BiPap Hyperglycemia (Acute) Mixed conductive and sensorineural hearing loss of both ears (Acute) Right carpal tunnel syndrome (Acute) Arthritis of right hand (Acute) Impingement of right ulnar nerve (Acute) Dermoid cyst of neck (Acute) Hypothyroidism (Chronic) Microcalcifications of the breast (Acute) Neuropathy of left hand (Acute) Neuropathy of right hand (Acute) Bilateral carpal tunnel syndrome (Acute) Medical History Hx pulmonary embolism (~2015) treated with lovenox x 3 months Surgical History Status post thyroidectomy History of fasciotomy History of Surgical Procedure a. Right and left toal knee replacements. b. Left knee has been repeatedly operated on with slava surgies, three replacements. Replacement of total knee joint Bilateral; left-became fnvctpkc-izahusi-xyatbkki surgeries Fasciotomy, Foot (~1996) LEFT Social History/Home Situation: Lives with significant other in a private. Has a ramp to enter the house. Independent with bed<>motorized wheelchair and chair<>motorized wheelchair using armrests for support and stand pivot technique. Able to cook meals while seated on motorized chair. SUBJECTIVE: Feels much better today. Hoping to get additional help at home. Okay with PT and OT services to assess level of dependence and need for support at home. DME: Motorized wheelchair, FWW, shower chair Objective: General Observation: Sitting on bedside commode when Pt came in. Telemetry monitoring in place. IV through L UE. High BMI. Schmitt catheter in place. Mental Status: Alert and oriented x 4 Pain: Pain in L knee Vital Signs: Closely monitored by nursing staff ROM: Right Upper Extremity: 50% AROM in shoulder, WFL in elbow and and wrist Left Upper Extremity: 50% AROM in shoulder, WFL in elbow and and wrist Right Lower Extremity: Less than 50% AROM in hip, knee, and ankle Left Lower Extremity: Less than 50% AROM in hip, knee, and ankle Strength: Right Upper Extremity: Shoulder flexors 3-/5. Shoulder abductors 3-/5. Elbow flexors 3/5. Elbow extensors 3/5. Deflector Operator strong. Left Upper Extremity: Shoulder flexors 3-/5. Shoulder abductors 3-/5. Elbow flexors 3/5. Elbow extensors 3/5. Deflector Operator strong. Right Lower Extremity: Hip flexors 2-/5. Hip abductors 2-/5. Knee flexors 3-/5. Knee extensors 2-/5. Ankle dorsiflexors 2-/5. Ankle plantarflexors 2-/5. Left Lower Extremity: Hip flexors 2-/5. Hip abductors 2-/5. Knee flexors 3-/5. Knee extensors 2-/5. Ankle dorsiflexors 2-/5. Ankle plantarflexors 2-/5. Sensation: Intact as to pain and pressure on bilateral lower extremities. Bed Mobility/Transfers: Moderate cueing provided for use of B hands as needed for support, movement sequence, AD management, and posture to reduce fall risk and minimize pain report Sit to supine stand by assist with HOB at 20 degrees Stand to sit stand by assist Bed to bedside commode set up assist, using armrests for support, stand pivot technique Bedside commode to motorized wheelchair set up assist Gait: Able to minimally side step as needed during transfers. Main mode of mobility indoors and outdoors is the motorized wheelchair at baseline Balance: Static Sitting: Good Dynamic Sitting: Fair Static Standing: Fair Dynamic Standing: Poor Special Tests: Mobility Limitations Standardized Measure [facility] 6 clicks Basic Mobility Inpatient Short Form: Raw Score: 23 CMS Score: 11% deficit Informed Consent/Education: Patient instructed in purpose of PT consult and plan of care. Agreeable to proceed with established PT POC to achieve personal goals. ASSESSMENT: Radha was able to perform stand pivot transfers to and from bedside commode using B armrests and edge of bed for support. She is able to weight bear fully on the R LE and partially on the L LE due to more pain and swelling in the L LE. She is set up assist for all transfers at this time. Radha demonstrates stage III secondary lymphedema impacting her ability to perform mobility ADLs safely and is increasing her risk for skin breakdown and or infection. She requires skilled PT intervention to remediate functional limitations listed below, reduce fall risk, increase ability to thrive safely at home, and reduce risk for rehospitalization. She will benefit from skilled PT services in order regain prior level of function and achieve highest quality of life. She will benefit from PT and OT services to ensure that she safely returns to prior level with ADL performance at home. Radha presents with clinical signs and symptoms consistent with current/admitting diagnoses that have resulted to mobility limitations, gait instability, generalized weakness, and impairment of motor control as demonstrated by the following impairment level findings: 1. Decreased strength to B UE/LE major muscle groups 2. Impaired standing balance 3. Impaired activity tolerance 4. Positive Stemmer sign in toes in B LE 5. Skin breakdown to R leg being managed by wound nurse 6. Unstable L knee Impairments are continuing to contribute to the following functional limitations: 1. Inability to safely ambulate without assistive device and physical assistance 2. Increase completion time for mobility ADL performance 3. Increased fall risk 4. Increased risk for skin breakdown Patient is assessed as a 06105 moderate complexity based on the following: History: 68-year-old female with impairment level findings, functional limitations, and past medical history as indicated above Examination: Demonstrable impairment in strength, range of motion, and functional mobility level with underlying impairments and functional limitations as documented above Presentation: Stable Decision Makin moderate complexity Goals: Goals X1 week 1. Supine-Sit to 2. Sit-Supine independent 3. Sit-Stand independent 4. Stand-Sit independent 5. Bed-Chair independent 6. Chair-Bed independent Plan of Care/Treatment Plan: Patient will highly benefit from skilled physical therapy services including functional mobility training, bed mobility/transfer training, gait and balance training, therapeutic exercises, therapeutic activity, caregiver/staff/family education and training 1x/day, 7 days/week x 1 week. Plan of care has been reviewed with the DIRECTOR INTERNAL COMMUNICATIONS providing the service under Physical Therapy direction. Initiate Physical Therapy intervention for strengthening, bed mobility, transfers, and use of assistive device. DISCHARGE RECOMMENDATIONS: Patient will benefit from home health PT services in order to progress mobility level using least restrictive assistive ambulatory device, assess home safety, identify additional equipment needs, and establish a functional maintenance program that will increase ability of patient to remain at home. Consider resumption of complete decongestive therapy to address lymphedema symptoms. TREATMENT CODE/TIME: 24172 x 20 minutes for 4 units, 27797 x 13 minutes for 2 units (8:50-9:23). Thank you for the opportunity to participate in the care of this patient. Please do not hesitate to contact me with any questions or concerns regarding this patient's plan of care. Desi Pastor, PT, DPT, CLT [facility]
[2024-06-01] MEDS: Albuterol 2.5 MG/3 ML INH SOLN VIAL UPD (12:14)
[2024-06-01 14:14] LABS: Bilirubin Small (Negative); Blood Large (Negative); Clarity Cloudy (Clear); Glucose Negative (Negative); Ketones Trace mg/dL (Negative); Leukocyte Esterase Trace (Negative); Nitrite Negative (Negative); pH 5.5 (5-8)
[2024-06-01 14:22] LABS: C & S Indicated? Yes; RBC >50 HPF (0-2)
--- NOTE | 2024-06-01 15:59 | W.PM.PROGNOT ---
Date of Service Date of service: 06/01/24 Time of Service: 11:30 Assessment and Plan Assessment and plan (1) Acute and chronic respiratory failure with hypoxia: Status: Acute Assessment and plan: Now on Oxygen at baseline 3 l/min; was initially at 5 L on arrival Presentation was most likely multifactoral with congestive heart failure exacerbation as well as fluid overload Treatment initiated with IV furosemide, IV steroids and antibiotics in the ED. In the setting of a negative procalcitonin, the absence of fever but increased sputum quantity, change in color and increased cough, we will Continue steroids for COPD exacerbation, as well as doxycycline in the setting of improving clinical picture (2) Heart failure with preserved ejection fraction: Status: Acute Assessment and plan: As per Echocardiogram report in 03/2024, LVEF 55% with RVSP 40% Will continue IV lasix BID PICC/Midline placement consult completed Still considering adding metalozone if needed ( received a dose on 05/30) to potentiate the effect of Lasix Continue strict I&O and daily weights Limited echo ordered on 05/31/2024 not completed reordered today PT consult ongoing (3) COPD (chronic obstructive pulmonary disease): Status: Acute Assessment and plan: High-dose IV steroids in the emergency department and ciprofloxacin given in the ED Procal was negative , leukocytosis initially improving but increase in WBC might be due to a late reaction to the steroid; will continue to monitor CBC in AM Will continue daily prednisone 40 mg until 06/04/2024 Continue doxycycline oral for exacerbation of COPD Qualifiers: COPD type: COPD with acute exacerbation Qualified Code(s): J44.1 - Chronic obstructive pulmonary disease with (acute) exacerbation (4) DAVID (obstructive sleep apnea): Status: Chronic Assessment and plan: Continue home BiPAP (5) Hypothyroidism: Status: Chronic Assessment and plan: Continue levothryoxine Qualifiers: Hypothyroidism type: postoperative Qualified Code(s): E89.0 - Postprocedural hypothyroidism (6) GERD (gastroesophageal reflux disease): Status: Chronic Assessment and plan: Initiate protonix 40 mg IV daily in the setting of inceased stress to to hospitalization and steroids Might be transitioned to home dose PPI on d/c (7) Hypokalemia: Status: Inactive Assessment and plan: Supplementation ordered and BMP in AM (8) Abnormal urinalysis: Status: Acute Assessment and plan: UA with trace leukesterase, A-febrile no overt symptoms of dysuria reported -will await on culture result of further symptoms to initiate antibiotics specific to UTI Discussed with Dr. Benavidez Subjective Subjective Patient reports: feels better, tolerating liquids well, tolerating a regular diet, voiding w/o difficulty (schultz in ), no bowel movement and shortness of breath (s/p cough not at rest ); denies nausea, vomiting or fever Exam Narrative Exam Narrative: Constitutional The patient is chair w/o acute distress HENMT: Facial structures with normal appearance Neuro:alert and oriented to self, person, place, time and situation. Nonfocal Resp:Scattered ronchi, slight exp wheezing s/p cough, clear anterior upper breath sounds and diminished posterior bases Cardio: regular rhythm, S1, S2, no murmur, bilateral radial and dorsalis pedis pulses are positive GI: Abdomen is large, not distended, soft and non tender, bowel sounds are present Extremities: Moves all 4 extremities Psych: RASS 0, congruent mood and normal affect. Objective Last Vital Signs Temp 36.3 C L 06/01/24 15:13 Pulse 74 06/01/24 15:13 Resp 19 06/01/24 15:13 BP 127/76 06/01/24 15:13 Pulse Ox 94 06/01/24 15:13 Laboratory Results - last 24 hr 06/01/24 06/01/24 06:15 13:45 WBC 11.34 H RBC 4.60 Hgb 12.9 Hct 39.9 MCV 87 MCH 28.0 MCHC 32.3 RDW 15.8 H Plt Count 355 MPV 11.2 H Immature Gran % 0.4 Neutrophils % 70.2 Lymphocytes % 17.5 Monocytes % 11.2 Eosinophils % 0.4 Basophils % 0.3 Nucleated RBC % 0.0 Absolute Neutrophils 7.96 H Absolute Lymphocytes 1.98 Absolute Monocytes 1.27 H Absolute Eosinophils 0.05 Absolute Basophils 0.03 Sodium 140 Potassium 3.2 L Chloride 96 L Carbon Dioxide 41.3 H Anion Gap 2.7 L BUN 13 Creatinine 0.7 Est GFR (CKD-EPI 2020) 94.15 Glucose 105 Calcium 7.9 L Magnesium 1.9 Urine Color Dark Yellow Urine Clarity Cloudy Urine pH 5.5 Ur Specific [place] 1.020 Urine Protein 100 H Urine Ketones Trace H Urine Blood Large H Urine Nitrite Negative Urine Bilirubin Small H Urine Urobilinogen 4.0 H Ur Leukocyte Esterase Trace H Urine RBC >50 H Urine WBC Not Applicable Ur Epithelial Cells Not Applicable Urine Crystals Not Applicable Urine Bacteria Not Applicable Urine Mucus Not Applicable Ur Culture Indicated? Yes Urine Glucose Negative Time Spent with Patient Time Spent with Patient: >50 minutes Time was spent: preparing to see the patient(eg.review tests), obtaining and/or reviewing separately otained hiistory, ordering medications,tests, procedures, referring, communicating with other health child care center assistant director, indepentently interpreting results, counseling the patient and care coordination
--- NOTE | 2024-06-01 16:44 | PDOC.CMPRO ---
Date of service: 06/01/24 Time of Service: 12:30 Care Management Progress Note Progress Note Text Progress Note Text: Radha was sitting up in her wheelchair when CM met with her today. She was pleasant, and agreeable to talking. She stated that she is feeling better today, and is back to her baseline O2 of 3L. Her breathing appeared much more comfortable today, she stated she had just had a nebulizer treatment. Discharge Potential Discharge Needs: PCP F/U Appt Anticipated Barriers to Discharge: None Identified Patient/Family Education Needs: Review discharge instructions, discuss Ask Me Three Transportation: Private vehicle Plan: Anticipate Radha will be discharged home with continuation of her HH RN and PT, and new order for OT. She will follow up with her community providers and plan of care and transport with family. CM will continue to follow and update the plan as needed. SDOH(Care Management) Screening Will the Patient Participate in the Screening?: Yes Do you worry about having a steady place to live?: no Problems where you live: no known problems In the past 12 months, have you had to go without electric, gas, oil or water in your home?: no Have you or anyone in your house had to go without enough food to eat?: no Has lack of transportation kept you from medical appointments or from doing things needed for daily living?: no Has anyone in your support network made you feel unsafe for any reason?: no
[2024-06-01] MEDS: Protein Nutritional Supplement 16 GM 1 OUNCE PACKET PO (18:03)
[2024-06-01] MEDS: Potassium Chloride 20 MEQ TABCR 40 MEQ PO (18:03)
[2024-06-01] MEDS: POTASSIUM CHLORIDE 10 MEQ/100 ML BAG 100 MEQ IV_INF ×2 (18:05→20:00)
[2024-06-01] MEDS: Pantoprazole 40 MG VIAL IVP (18:06)
[2024-06-01] MEDS: Docusate Sodium 100 MG CAP PO (20:37)
[2024-06-02] VITALS (9 sets, daily range): BP systolic 124–143; BP diastolic 63–76; PULSE 71–81; RESP 18–25; TEMP 35.6–36.9; O2SAT 92–94
[2024-06-02] MEDS: Doxycycline Hyclate 100 MG CAP PO ×2 (06:21→18:07)
[2024-06-02] MEDS: Levothyroxine 100 MCG TAB 200 MCG PO (06:21)
[2024-06-02 06:25] LABS: Abs Immature Grans 0.05 10^3/uL (0.0-0.06); Absolute Basophil Count 0.02 10^3/uL (0.0-0.2); Absolute Eosinophil Count 0.11 10^3/uL (0.0-0.7); Absolute Lymphocyte Count 2.62 10^3/uL (1.2-3.4); Absolute Monocyte Count 1.32 10^3/uL (0.1-0.8); Basophils % 0.2 %; Eosinophils % 0.9 %; HCT 41.9 % (36.0-46.0); HGB 13.8 g/dL (11.2-15.7); Immature Grans % 0.4 %; Lymphocytes % 21.4 %; MCHC 32.9 % (32.0-36.0); MCV 85 fL (80-95); MPV 11.1 fL (8.0-11.0); Monocytes % 10.8 %; Neutrophils % 66.3 %; Platelet Count 374 10^3/uL (130-400); RBC 4.93 10^6/uL (3.93-5.22); RDW 15.7 % (11.7-14.6); RDW-SD 48.7 fL; WBC 12.22 10^3/uL (4.4-10.8)
[2024-06-02 06:46] LABS: Anion Gap 5.8 mmol/L (3-11); BUN 15 mg/dL (7-18); CO2 38.2 mmol/L (21.0-32.0); CREATININE 0.6 mg/dL (0.55-1.02); Calcium 7.7 mg/dL (8.5-10.1); Chloride 94 mmol/L (98-107); Estimated GFR 97.71 (mL/min/1.73m2); Glucose 87 mg/dL (74-106); Potassium 3.8 mmol/L (3.5-5.1); Sodium 138 mmol/L (136-145)
[2024-06-02] MEDS: Furosemide 40 MG/4 ML VIAL IVP ×2 (08:36→15:50)
[2024-06-02] MEDS: Pantoprazole 40 MG VIAL IVP (08:37)
[2024-06-02] MEDS: Normal Saline Flush 10 ML SYR IVP ×4 (08:38→20:59)
[2024-06-02] MEDS: Potassium Chloride 20 MEQ TABCR 40 MEQ PO ×3 (08:47→20:57)
[2024-06-02] MEDS: Ascorbic Acid 500 MG TAB 1000 MG PO (08:48)
[2024-06-02] MEDS: predniSONE 20 MG TAB 40 MG PO (08:48)
[2024-06-02] MEDS: Ferrous Sulfate 325 MG TAB PO (08:49)
[2024-06-02] MEDS: Sertraline 50 MG TAB PO (08:49)
[2024-06-02] MEDS: Docusate Sodium 100 MG CAP PO ×3 (08:49→20:57)
[2024-06-02] MEDS: Norethindrone 5 MG TAB 10 MG PO ×2 (08:49→20:57)
[2024-06-02] MEDS: Enoxaparin 60 MG/0.6 ML SYR SC ×2 (08:50→20:58)
[2024-06-02] MEDS: Protein Nutritional Supplement 16 GM 1 OUNCE PACKET PO ×3 (08:50→20:57)
[2024-06-02] MEDS: Nystatin POWDER 15 GM JAR TP (08:52)
--- NOTE | 2024-06-02 14:34 | PGE_ITS ---
Date of Service Date of service: 06/02/24 Time of Service: 12:30 Assessment and Plan Assessment and plan (1) Acute and chronic respiratory failure with hypoxia: Status: Acute Assessment and plan: Now on Oxygen at baseline 3 l/min; up to 5 L on arrival Presentation was most likely multifactoral with congestive heart failure exacerbation as well as fluid overload in the ED received IV furosemide, IV steroids and antibiotics in the ED. In the setting of a negative procalcitonin, the absence of fever but increased sputum quantity, change in color and increased cough, we will continue oral steroids for COPD exacerbation, as well as doxycycline (2) Heart failure with preserved ejection fraction: Status: Acute Assessment and plan: As per last Echocardiogram report in 03/2024, LVEF 55% with RVSP 40% Will continue IV lasix BID- transition to oral in AM PICC/Midline placement consult completed Adding metalozone if needed to improve diuresis ( received a dose on 05/30) to potentiate the effect of Lasix Continue strict I&O and daily weights Limited echo ordered on 05/31/2024 not completed reordered PT consult ongoing (3) COPD (chronic obstructive pulmonary disease): Status: Acute Assessment and plan: High-dose IV steroids in the emergency department and ciprofloxacin given in the ED then stopped Procal was 0.1 , leukocytosis initially improving but increase in WBC thought to be due to a late reaction to the steroid but now has a UTI Will continue daily prednisone 40 mg until 06/04/2024 to complete 5-day- course Continue doxycycline oral for exacerbation of COPD to complete 5-day course PRN nebs CBC in AM Qualifiers: COPD type: COPD with acute exacerbation Qualified Code(s): J44.1 - Chronic obstructive pulmonary disease with (acute) exacerbation (4) DAVID (obstructive sleep apnea): Status: Chronic Assessment and plan: On home BiPAP (5) Hypothyroidism: Status: Chronic Assessment and plan: On home dose synthroid Qualifiers: Hypothyroidism type: postoperative Qualified Code(s): E89.0 - Postprocedural hypothyroidism (6) GERD (gastroesophageal reflux disease): Status: Chronic Assessment and plan: Continue IV PPI daily in the setting of increased stress due to hospitalization and steroids Transitioned to home dose PPI on d/c (7) Hypokalemia: Status: Inactive Assessment and plan: Resolved On furosemide IV continue oral scheduled doses BMP in AM (8) UTI (urinary tract infection): Status: Acute Assessment and plan: On 06/01-UA with trace leukesterase, A-febrile no overt symptoms of dysuria reported -will await on culture result of further symptoms to initiate antibiotics specific to UTI Culture showed GNR - Will start IV ceftriaxone CBC in AM Discussed with Dr. Benavidez Subjective Subjective Patient reports: no new complaints, feels better, tolerating liquids well, tolerating a regular diet, voiding w/o difficulty (schultz in ), bowel movement and blood in stool (trace s/p no BM for multiple days ); denies diarrhea, nausea, vomiting, shortness of breath (s/p cough not at rest ) or fever Exam Narrative Exam Narrative: Constitutional The patient is chair w/o acute distress Neuro:alert and oriented X4 . Nonfocal Resp:Scattered ronchi, clear anterior upper breath sounds and diminished posterior bases Cardio: regular rhythm, S1, S2, no murmur GI: Abdomen is large, not distended, soft and non tender, bowel sounds are present Extremities: Moves all 4 extremities Psych: RASS 0, congruent mood and normal affect. Objective Last Vital Signs Temp 36.5 C 06/02/24 10:57 Pulse 77 06/02/24 10:57 Resp 18 06/02/24 10:57 BP 133/73 06/02/24 10:57 Pulse Ox 92 06/02/24 10:57 Laboratory Results - last 24 hr 06/02/24 06:00 WBC 12.22 H RBC 4.93 Hgb 13.8 Hct 41.9 MCV 85 MCH 28.0 MCHC 32.9 RDW 15.7 H Plt Count 374 MPV 11.1 H Immature Gran % 0.4 Neutrophils % 66.3 Lymphocytes % 21.4 Monocytes % 10.8 Eosinophils % 0.9 Basophils % 0.2 Nucleated RBC % 0.0 Absolute Neutrophils 8.10 H Absolute Lymphocytes 2.62 Absolute Monocytes 1.32 H Absolute Eosinophils 0.11 Absolute Basophils 0.02 Sodium 138 Potassium 3.8 Chloride 94 L Carbon Dioxide 38.2 H Anion Gap 5.8 BUN 15 Creatinine 0.6 Est GFR (CKD-EPI 2020) 97.71 Glucose 87 Calcium 7.7 L Time Spent with Patient Time Spent with Patient: >50 minutes Time was spent: preparing to see the patient(eg.review tests), obtaining and/or reviewing separately otained hiistory, ordering medications,tests, procedures, referring, communicating with other health acute care nursing assistant, indepentently interpreting results, counseling the patient and care coordination
[2024-06-02] MEDS: cefTRIAXone 2 GM/50 ML BAG IVPB (15:00)
[2024-06-02] MEDS: Albuterol/Ipratropium 3 ML UPD VIAL UPD (16:44)
[2024-06-03] VITALS (11 sets, daily range): BP systolic 142–149; BP diastolic 69–70; PULSE 76–91; RESP 2–25; TEMP 35.4–35.9; O2SAT 89–94
[2024-06-03] MEDS: Albuterol/Ipratropium 3 ML UPD VIAL UPD ×3 (02:49→20:19)
[2024-06-03] MEDS: Doxycycline Hyclate 100 MG CAP PO ×2 (05:54→18:20)
[2024-06-03] MEDS: Levothyroxine 100 MCG TAB 200 MCG PO (05:54)
[2024-06-03 07:02] LABS: Abs Immature Grans 0.09 10^3/uL (0.0-0.06); Absolute Monocyte Count 1.19 10^3/uL (0.1-0.8); Basophils % 0.3 %; Eosinophils % 1.7 %; HCT 41.8 % (36.0-46.0); HGB 13.5 g/dL (11.2-15.7); Immature Grans % 0.6 %; Lymphocytes % 14.5 %; MCH 27.7 pg (27.0-33.0); MCHC 32.3 % (32.0-36.0); MCV 86 fL (80-95); MPV 11.1 fL (8.0-11.0); Monocytes % 8.2 %; Neutrophils % 74.7 %; Platelet Count 345 10^3/uL (130-400); RBC 4.88 10^6/uL (3.93-5.22); RDW 15.5 % (11.7-14.6); RDW-SD 48.7 fL; WBC 14.46 10^3/uL (4.4-10.8)
[2024-06-03 07:08] LABS: Absolute Basophil Count 0.04 10^3/uL (0.0-0.2); Absolute Eosinophil Count 0.25 10^3/uL (0.0-0.7)
[2024-06-03 07:18] LABS: Anion Gap 2.9 mmol/L (3-11); BUN 20 mg/dL (7-18); CO2 38.1 mmol/L (21.0-32.0); CREATININE 0.8 mg/dL (0.55-1.02); Calcium 7.7 mg/dL (8.5-10.1); Chloride 97 mmol/L (98-107); Estimated GFR 80.21 (mL/min/1.73m2); Glucose 99 mg/dL (74-106); Potassium 4.3 mmol/L (3.5-5.1); Sodium 138 mmol/L (136-145)
[2024-06-03] MEDS: predniSONE 20 MG TAB 40 MG PO (08:56)
[2024-06-03] MEDS: Pantoprazole 40 MG VIAL IVP (08:56)
[2024-06-03] MEDS: Enoxaparin 60 MG/0.6 ML SYR SC ×2 (08:56→20:41)
[2024-06-03] MEDS: Ascorbic Acid 500 MG TAB 1000 MG PO (08:56)
[2024-06-03] MEDS: Protein Nutritional Supplement 16 GM 1 OUNCE PACKET PO ×3 (08:56→20:45)
[2024-06-03] MEDS: Norethindrone 5 MG TAB 10 MG PO ×2 (08:57→20:37)
[2024-06-03] MEDS: Sertraline 50 MG TAB PO (08:57)
[2024-06-03] MEDS: Furosemide 80 MG TAB PO ×2 (08:57→16:55)
[2024-06-03] MEDS: Potassium Chloride 20 MEQ TABCR 40 MEQ PO (08:57)
[2024-06-03] MEDS: Docusate Sodium 100 MG CAP PO ×2 (08:57→20:38)
[2024-06-03] MEDS: Nystatin POWDER 15 GM JAR TP ×2 (08:58→14:25)
[2024-06-03] MEDS: Normal Saline Flush 10 ML SYR IVP ×2 (08:58→20:40)
--- NOTE | 2024-06-03 14:04 | W.PM.PROGNOT ---
Date of Service Date of service: 06/03/24 Time of Service: 14:04 Assessment and Plan Assessment and plan (1) Acute and chronic respiratory failure with hypoxia: Status: Acute Assessment and plan: Now on Oxygen at baseline 3 l/min; up to 5 L on arrival Presentation was most likely multifactoral with congestive heart failure exacerbation as well as fluid overload in the ED received IV furosemide, IV steroids and antibiotics in the ED. In the setting of a negative procalcitonin, the absence of fever but increased sputum quantity, change in color and increased cough, we will continue oral steroids for COPD exacerbation, as well as doxycycline (2) Heart failure with preserved ejection fraction: Status: Acute Assessment and plan: As per last Echocardiogram report in 03/2024, LVEF 55% with RVSP 40% Will continue IV lasix BID- transition to oral in AM PICC/Midline placement consult completed Adding metalozone if needed to improve diuresis ( received a dose on 05/30) to potentiate the effect of Lasix Continue strict I&O and daily weights Limited echo ordered on 05/31/2024 not completed reordered PT consult ongoing (3) COPD (chronic obstructive pulmonary disease): Status: Acute Assessment and plan: High-dose IV steroids in the emergency department and ciprofloxacin given in the ED then stopped Procal was 0.1 , leukocytosis initially improving but increase in WBC thought to be due to a late reaction to the steroid but now has a UTI Will continue daily prednisone 40 mg until 06/04/2024 to complete 5-day- course Continue doxycycline oral for exacerbation of COPD to complete 5-day course PRN nebs CBC in AM Qualifiers: COPD type: COPD with acute exacerbation Qualified Code(s): J44.1 - Chronic obstructive pulmonary disease with (acute) exacerbation (4) DAVID (obstructive sleep apnea): Status: Chronic Assessment and plan: On home BiPAP (5) Hypothyroidism: Status: Chronic Assessment and plan: On home dose synthroid Qualifiers: Hypothyroidism type: postoperative Qualified Code(s): E89.0 - Postprocedural hypothyroidism (6) GERD (gastroesophageal reflux disease): Status: Chronic Assessment and plan: Continue IV PPI daily in the setting of increased stress due to hospitalization and steroids Transitioned to home dose PPI on d/c (7) Hypokalemia: Status: Inactive Assessment and plan: Resolved On furosemide IV continue oral scheduled doses BMP in AM (8) UTI (urinary tract infection): Status: Acute Assessment and plan: On 06/01-UA with trace leukesterase, A-febrile no overt symptoms of dysuria reported -will await on culture result of further symptoms to initiate antibiotics specific to UTI Culture showed GNR - Will start IV ceftriaxone CBC in AM Discussed with Dr. Benavidez Subjective Subjective Patient reports: no new complaints, tolerating liquids well, tolerating a regular diet and afebrile; denies shortness of breath Exam Const General: no acute distress Nutritional Appearance: obese Orientation: alert, awake and oriented x3 HENMT Head: normal to inspection, normocephalic and atraumatic Mouth: oral mucosae normal Eyes General: appearance normal, both eyes and all related structures Resp Effort & Inspection: normal respiratory effort and able to speak in complete sentences Auscultation: diminished lung sounds bilaterally, no rhonchi and no wheezes Cardio Rate: regular rate Rhythm: regular rhythm GI Inspection: large pannus and obesity Palpation: soft Extrem General: edema (Lymphedema) Laterality: bilateral Psych Mental Status: mental status grossly normal Speech and Movement: speech and movement normal Mood: congruent mood Objective Last Vital Signs Temp 35.9 C L 06/03/24 08:01 Pulse 84 06/03/24 09:19 Resp 19 06/03/24 09:19 BP 149/69 H 06/03/24 08:01 Pulse Ox 94 06/03/24 09:19 Laboratory Results - last 24 hr 06/03/24 05:35 WBC 14.46 H RBC 4.88 Hgb 13.5 Hct 41.8 MCV 86 MCH 27.7 MCHC 32.3 RDW 15.5 H Plt Count 345 MPV 11.1 H Immature Gran % 0.6 Neutrophils % 74.7 Lymphocytes % 14.5 Monocytes % 8.2 Eosinophils % 1.7 Basophils % 0.3 Nucleated RBC % 0.0 Absolute Neutrophils 10.80 H Absolute Lymphocytes 2.10 Absolute Monocytes 1.19 H Absolute Eosinophils 0.25 Absolute Basophils 0.04 Sodium 138 Potassium 4.3 Chloride 97 L Carbon Dioxide 38.1 H Anion Gap 2.9 L BUN 20 H Creatinine 0.8 Est GFR (CKD-EPI 2020) 80.21 Glucose 99 Calcium 7.7 L Time Spent with Patient Time Spent with Patient: >50 minutes Time was spent: preparing to see the patient(eg.review tests), obtaining and/or reviewing separately otained hiistory, ordering medications,tests, procedures, indepentently interpreting results and counseling the patient
[2024-06-03] MEDS: cefTRIAXone 2 GM/50 ML BAG IVPB (14:24)
[2024-06-03] MEDS: Potassium Chloride 20 MEQ TABCR PO (20:41)
[2024-06-04] MEDS: Doxycycline Hyclate 100 MG CAP PO (06:12)
[2024-06-04] MEDS: Levothyroxine 100 MCG TAB 200 MCG PO (06:12)
[2024-06-04 08:00] VITALS: BP 130/57; PULSE 75; RESP 24; TEMP 36.6; O2SAT 92
[2024-06-04] MEDS: predniSONE 20 MG TAB 40 MG PO (09:12)
[2024-06-04] MEDS: Enoxaparin 60 MG/0.6 ML SYR SC (09:12)
[2024-06-04] MEDS: Protein Nutritional Supplement 16 GM 1 OUNCE PACKET PO ×2 (09:12→14:15)
[2024-06-04] MEDS: Furosemide 80 MG TAB PO ×2 (09:13→16:23)
[2024-06-04] MEDS: Pantoprazole 40 MG TABCR PO (09:13)
[2024-06-04] MEDS: Docusate Sodium 100 MG CAP PO (09:13)
[2024-06-04] MEDS: Potassium Chloride 20 MEQ TABCR PO (09:13)
[2024-06-04] MEDS: Ferrous Sulfate 325 MG TAB PO (09:13)
[2024-06-04] MEDS: Ascorbic Acid 500 MG TAB 1000 MG PO (09:13)
[2024-06-04] MEDS: Norethindrone 5 MG TAB 10 MG PO (09:13)
[2024-06-04] MEDS: Sertraline 50 MG TAB PO (09:14)
[2024-06-04] MEDS: Normal Saline Flush 10 ML SYR IVP ×2 (09:14→14:15)
[2024-06-04] MEDS: Nystatin POWDER 15 GM JAR TP (09:33)
[2024-06-04 10:29] LABS: Magnesium 1.9 mg/dL (1.8-2.4)
--- NOTE | 2024-06-04 12:30 | DI.US_ITS ---
APPROVED REPORT EXAM: Limited 2D Echocardiogram with contrast Patient Location: In-Patient Rubber Trimmer: Alex Browne RDCS (AE) Indications: Function Other Information Study Quality: Technically Limited. Technically limited study due to body habitus, inability to posit ion patient. Conclusion Technically very suboptimal study Left ventricle appears grossly normal in size and systolic function. Segmental wall motion cannot be accurately assessed Wall motion Left Ventricle The left ventricle is normal size. There is normal left ventricular wall thickness. 2D Dimensions IVSD d PLAX 0.85 cm F: 0.6-1.0 LVPW d PLAX 0.87 cm F: 0.6 - 1.0 LVID d PLAX 4.96 cm F: 3.8 - 5.2 LV EDV (Teich) 115.9 mL
[2024-06-04] MEDS: cefTRIAXone 2 GM/50 ML BAG IVPB (14:16)
--- NOTE | 2024-06-04 16:35 | DSE_ITS ---
Date of service: 06/04/24 Time of Service: 16:35 DS: Diagnosis Discharge Diagnosis (1) Acute and chronic respiratory failure with hypoxia: Status: Acute (2) Heart failure with preserved ejection fraction: Status: Acute (3) COPD (chronic obstructive pulmonary disease): Status: Acute (4) DAVID (obstructive sleep apnea): Status: Chronic (5) Hypothyroidism: Status: Chronic (6) GERD (gastroesophageal reflux disease): Status: Chronic (7) Hypokalemia: Status: Inactive (8) Abnormal urinalysis: Status: Acute Discharge Plan Disposition Patient Disposition: Home W/Home Health Services Condition: Improving Discharge Details Reason For Visit: Hypoxic respiratory failure Admit Date/Time: 05/30/24 13:50 Admit Provider: Brandan Hicks Attending Provider: Brandan Hicks Primary Care Provider: Alphonso Murphy Hospital Course Hospital Course: This 69 years old morbidly obese female patient with a past medical history of iron deficiency, COPD, right ventricular dysfunction, GERD, obstructive sleep apnea presented to the ED on 05/30/2024 with a 2-day history of increased shortness of breath, moist cough with increased oxygen requirement from her baseline of 3 L to 5 L via nasal cannula. In the ED the patient received IV Lasix as well as IV steroids and ciprofloxacin for suspected exacerbation of her COPD with improvement of symptoms. The hospitalist was consulted and patient admitted to the medical surgical floor for evaluation and management of COPD exacerbation as well as CHF exacerbation. During the stay, it was confirmed that the patient had increased in cough, quantity of sputum as well as change in color in her sputum thus supporting the continuation of treatment for COPD exacerbation with oral doxycycline and oral steroids. The patient continued to be treated with IV furosemide for CHF exace rbation and a Schmitt was inserted for strict I&O monitoring. Oxygen requirement returned to baseline. UA showed leuk esterase and the patient was initiated with on ceftriaxone for gram-negative rods. Urine culture showed E. coli that is resistant to ampicillin sulbactam, fluoroquinolone and gentamicin but sensitive to ceftriaxone. The patient will completed a short course of cefpodoxime outpatient with recommendation for a urinalysis follow-up as per primary care discretion. The patient will also complete her course of doxycycline and oral prednisone as an outpatient. A limited echocardiogram was completed on 06/04/2024 to reevaluate cardiac function with the following results: Other Information Study Quality: Technically Limited. Technically limited study due to body habitus, inability to position patient. Conclusion Technically very suboptimal study Left ventricle appears grossly normal in size and systolic function. Segmental wall motion cannot be accurately assessed Wall motion Left Ventricle The left ventricle is normal size. There is normal left ventricular wall thickness. On the previous complete echocardiogram done on 04/11/2024 LVEF was 55% without segmental wall abnormalities and normal right ventricular function. Physical therapy recommendation are for resumption of home health physical therapy. The patient will also benefit from resumption of home health nursing as well as the addition of occupational therapy. I discussed with patient nutrition consult was initiated with plans to continue outpatient follow-up. The patient was transition to a higher dose of oral Lasix with recommendation for basic metabolic panel follow-up as per primary care discretion. The patient will need to follow-up with her primary care practitioner within 7 days of discharge. Discussed with Dr. Benavidez Home Meds and New Rx's Prescriptions: New doxycycline hyclate 100 mg Capsule 100 mg PO Q12H Qty: 3 0RF potassium chloride [Klor-Con M20] 20 mEq Tablet,Er Particles/Crystals 20 meq PO DAILY Qty: 30 0RF prednisone 20 mg Tablet 40 mg PO DAILY Qty: 1 0RF cefpodoxime 100 mg tablet 100 mg PO Q12H Qty: 8 0RF Rx Instructions: must administer with a meal/food BiomePRO 50 billion cell capsule,delayed release(DR/EC) 1 cap PO DAILY Qty: 4 0RF Rx Instructions: Take 3 hours apart form any antibiotics Continued pantoprazole 20 mg tablet,delayed release (DR/EC) 20 mg PO DAILY Qty: 90 3RF Rx Instructions: 04/13/23 Per GI. -hb ascorbic acid (vitamin C) 1,000 MG tablet 1,000 mg PO DAILY (DME) Aerochamber Mini 1 EACH spacer 1 ea Inhalation PRN Qty: 1 Rx Instructions: DIRECTED WITH INHALER BiPAP Inhalation Gas 5 l IN DIRECTED Rx Instructions: sleep apnea ([facility] sleep lab 2013) uses with oxygen betamethasone, augmented 0.05 % lotion 1 applic topical BID PRN (Reason: allergic reaction) Qty: 60 2RF ipratropium-albuterol 0.5 mg-3 mg(2.5 mg base)/3 mL solution for nebulization 3 ml IH QID MDD 4 nebs Qty: 180 3RF sertraline 50 mg tablet 50 mg PO DAILY Qty: 90 3RF levothyroxine 200 mcg tablet 200 mcg PO DAILY Qty: 90 3RF oxygen Inhalation 3 l Intranasal DIRECTED Patient Comments: Continuous and uses with bipap Rx Instructions: 3L/NC continuous albuterol sulfate 90 mcg/actuation HFA aerosol inhaler 1 - 2 puff Inhalation Q6H PRN Qty: 1 11RF alclometasone 0.05 % cream 1 applic topical BID PRN (Reason: itching) Qty: 45 1RF ketoconazole 2 % cream 1 applic topical BID PRN (Reason: facial rash) Qty: 60 1RF norethindrone acetate 5 mg tablet 10 mg PO BID Qty: 180 1RF ferrous sulfate 325 mg (65 mg iron) tablet 325 mg PO Q OTHER DAY Qty: 15 2RF Changed furosemide 40 mg tablet 60 mg PO BID Qty: 180 3RF Rx Instructions: per can filling machine operator at [facility] docusate sodium [Colace] 100 mg Capsule 100 mg PO DAILY Qty: 60 0RF nystatin 100,000 unit/gram powder 1 applic TP BID Qty: 30 5RF Discharge Instructions Referrals: Alphonso Murphy MD [Primary Care Provider] - (F/u within 7 days of discharge please) Activity:: Activity as Tolerated Equipment/Supplies:: W/C Diet:: heart healthy DS: Summary Time Spent with Patient providing and/or coordinating discharge services: Greater than 30 minutes Status at Discharge Functional status at discharge: wheelchair bound Overall status at discharge: patient is progressing back to baseline Mental Status: mental status grossly normal Speech and Movement: speech and movement normal Mood: congruent mood Affect: normal affect Quality:SDOH Health Related Social Needs: Health related social needs transportation insecurity( Z59.82) Exam Narrative Exam Narrative: Constitutional The patient is chair w/o acute distress Neuro:alert and oriented X4 . Nonfocal Resp:clear to auscultation and diminished posterior bases Cardio: regular rhythm, S1, S2, no murmur, improved edema to LE's GI: Abdomen is large, not distended, soft and non tender, bowel sounds are present : No CVA tendreness Extremities: Moves all 4 extremities Psych: RASS 0, congruent mood and normal affect. Psych Mental Status: mental status grossly normal Speech and Movement: speech and movement normal Mood: congruent mood Affect: normal affect DS: Data Vitals/I&O Vitals and I&O: Vital Signs Temperature 36.6 C 06/04/24 08:00 Temperature Source Temporal Artery Scan 06/04/24 08:00 Pulse 75 06/04/24 08:00 Pulse Rhythm Regular 05/30/24 15:52 Pulse 79 05/30/24 15:10 Respiratory Rate 24 06/04/24 08:00 Respiratory Effort Normal, Non-Labored, Short of Breath 05/30/24 15:52 Respiratory Depth Normal 05/30/24 15:52 Respiratory Pattern Normal 05/30/24 15:52 Blood Pressure 130/57 L 06/04/24 08:00 Blood Pressure Mean 85 05/30/24 14:16 Blood Pressure Position Sitting 05/30/24 11:12 Pulse Oximetry 92 06/04/24 08:00 Oxygen Delivery Method Cpap 06/04/24 08:00 Oxygen Flow Rate 0 06/03/24 23:13 Pain Level 0 06/01/24 19:07 Comment RN only request O2 06/03/24 23:13 Intake & Output 06/03/24 06/04/24 06/04/24 23:59 11:59 23:59 Intake Total 100 / 110 10 / 60 50 / 60 Output Total 900 / 1300 850 / 1450 600 / 1450 Balance -800 / -1190 -840 / -1390 -550 / -1390 Weight 177.2 kg Intake: IV 100 / 110 10 / 60 50 / 60 Output: Urine 900 / 1300 850 / 1450 600 / 1450 Other: Urine Color Light Anay Light Anay Urine Appearance Cloudy Cloudy Stool Size Large Stool Characteristics Soft Data Completed and Pending Labs on day of discharge: Labs from last 24 hours 06/04/24 10:10 Magnesium 1.9 PFSH All Active Problems (Updated 06/02/24 @ 14:40 by Zoila De La Garza APRN) UTI (urinary tract infection) (Acute) Abnormal urinalysis (Acute) Heart failure with preserved ejection fraction (Acute) Wound dehiscence (Acute) Thickened endometrium (Acute) Postmenopausal bleeding (Acute) COPD (chronic obstructive pulmonary disease) (Acute) Community acquired pneumonia (Acute) Acute and chronic respiratory failure with hypoxia (Acute) Laceration of dobson (Acute) GERD (gastroesophageal reflux disease) (Chronic) had negative barium esophagram in 11/2022. Anxiety (Chronic) Venous stasis dermatitis (Acute) Lymphedema (Chronic) Chronic headaches (Chronic) Recent Neurology consult for possible papilledema. Urinary incontinence (Chronic) On Detrol Recurrent UTI (Chronic) Right ventricular dysfunction (Chronic) Knee pain, bilateral (Chronic 07/23/14) s/p bilat TKR (left infected with mult surg and decreased mobility) Morbid obesity (Acute 04/05/13) Sensorineural hearing loss, bilateral (Chronic 08/29/13) Advance directive on file (Acute) Low back pain with sciatica (Chronic 05/03/14) CT at [facility] L34 spinal stenosis Varicose veins of lower extremity (Chronic) Depression (Chronic) Grief at loss of child (Acute) Chronic respiratory failure with hypoxia and hypercapnia (Chronic) home BiPap Status post total bilateral knee replacement (Acute) Sprain of scapholunate ligament (Acute 03/21/19) DAVID (obstructive sleep apnea) (Chronic) on BiPap Hyperglycemia (Acute) Mixed conductive and sensorineural hearing loss of both ears (Acute) Right carpal tunnel syndrome (Acute) Arthritis of right hand (Acute) Impingement of right ulnar nerve (Acute) Dermoid cyst of neck (Acute) Hypothyroidism (Chronic) Microcalcifications of the breast (Acute) Neuropathy of left hand (Acute) Neuropathy of right hand (Acute) Bilateral carpal tunnel syndrome (Acute) Medical History Hx pulmonary embolism (~2015) treated with lovenox x 3 months Surgical History Status post thyroidectomy History of fasciotomy History of Surgical Procedure a. Right and left toal knee replacements. b. Left knee has been repeatedly operated on with slava surgies, three replacements. Replacement of total knee joint Bilateral; left-became appqrgna-ywnlcjz-jtebjxza surgeries Fasciotomy, Foot (~1996) LEFT Family History Mother Diabetes Personal history of malignant neoplasm LUNG Father Personal history of malignant neoplasm BRAIN Grandfather No problems noted. Grandfather No problems noted. Grandmother No problems noted. Grandmother No problems noted. Social History Smoking/Tobacco Use Status: Former Tobacco Use tobacco type: cigarettes Quit Date: 01/21/21 Second Hand Exposure: Yes Smoking risk assessment performed?: Yes Alcohol Intake: never Drug use: Never Substance use type: does not use Counseling given: No Housing: apartment Communication Needs: Hard of Hearing and Corrective Lenses Pets and animals: Yes Pets and animals: cat(s) Sexually active: Yes Current gender identity: female What is your relationship status?: never How often do you talk on the phone with friends or family?: decline to answer How often do you get together with friends or relatives?: decline to answer How often do you attend sabianism or buddhism services?: decline to answer Do you belong to any clubs or organized social groups?: no Panel score (0-1 are the most socially isolated patients): 0 Seatbelt use: never Do you feel safe at home: Yes Do you feel safe in your relationship?: Yes Time Spent with Patient Time Spent with Patient: >85 minutes Time was spent: preparing to see the patient(eg.review tests), obtaining and/or reviewing separately otained hiistory, ordering medications,tests, procedures, referring, communicating with other health career technical supervisor, indepentently interpreting results, counseling the patient and care coordination
--- NOTE | 2024-06-04 18:34 | CMDISCH_ITS ---
Date of service: 06/04/24 Time of Service: 14:00 LACE Index Scoring Tool Questions: Length of Stay (in days): 4 - 6 Was the patient admitted via the E.D.?: Yes Comorbidities: Chronic Pulmonary Disease E.D. Visits: 3 Answers: Total Score: 12 Risk of Readmission: High Risk Care Management Discharge Plan Reason for Hospitalization: acute and chronic respiratory failure with hypoxia Discharge Plan: Radha was discharged home today with resumption of PT and RN, and new OT. She will f/u with her primary care provider, and will continue per her plan of care. Radha was transported home in a private vehicle with her boyfriend. Patient/Family Education Needs: Review of discharge instructions, activity, limitations and f/u plan. Discuss Ask me 3. SDOH Health Related Social Needs: Health related social needs transportation insecurity( Z59.82)
--- NOTE | 2024-06-05 09:39 | W.NUTRFU ---
Date of service: 06/04/24 Time of Service: 15:00 Nutrition Note NOTE: Brief visit with Radha just prior to discharge as a consult was received, indicating she wanted additional help with weight loss. She shared that she needs to lose 100lbs so she can get back surgery. I told her we could work together towards her goal in the outpatient setting with as many visits as she needs to get into a good trend of weight loss. She took my card to contact when she is back at baseline at home and ready to come in for an hour to work on some menu planning and eating habit strategies. I will reach out and call her in a week if not heard from her Time Spent in Nutritional Counseling and Treatment: 10 min
== END 2024-06-04 17:28 | disposition home health service (06) | DRG 291 ==
LOC: ER 13:54 → MS 15:40
PROVIDERS: Nurse Practitioner Acute Care; Admitting Provider Family Medicine; Emergency Provider Physician Assistant; PCP Family Medicine; Visit Provider Family Medicine
DX: I50.31 Acute diastolic (congestive) heart failure (principal); J96.21 Acute and chronic respiratory failure with hypoxia; J44.1 Chronic obstructive pulmonary disease with (acute) exacerbation; N39.0 Urinary tract infection, site not specified; Z68.44 Body mass index [BMI] 60.0-69.9, adult; Z16.11 Resistance to penicillins; Z16.23 Resistance to quinolones and fluoroquinolones; G47.33 Obstructive sleep apnea (adult) (pediatric); E89.0 Postprocedural hypothyroidism; K21.9 Gastro-esophageal reflux disease without esophagitis; E87.6 Hypokalemia; Z99.81 Dependence on supplemental oxygen; E66.01 Morbid (severe) obesity due to excess calories; E61.1 Iron deficiency; F41.9 Anxiety disorder, unspecified; I87.2 Venous insufficiency (chronic) (peripheral); I89.0 Lymphedema, not elsewhere classified; R32 Unspecified urinary incontinence; Z96.653 Presence of artificial knee joint, bilateral; H90.3 Sensorineural hearing loss, bilateral; F32.A Depression, unspecified; M54.40 Lumbago with sciatica, unspecified side; Z86.711 Personal history of pulmonary embolism; B96.20 Unspecified Escherichia coli [E. coli] as the cause of diseases classified elsewhere
CPT/HCPCS: 36410; 00123; 36569; 80048; 80053; 82805; 84145; 87040; 87077; 87635; 93306; 94640; 96365; 96375; 97162; 97530; 99285; 71045; 81003; 81015; 83605; 83735; 83880; 84484; 85025; 87070; 87086; 87186; 87205; 94667; 94668; 94760; 99222; 99233; 99239; C8924; J0696; J0744; J1650; J1940; J2470; J2919; J3480; J7512; J7613; J7620

== ENCOUNTER 2024-06-07 16:17 | Emergency (ER) | payer MEDICARE, MEDICAID, SELFPAY ==
--- NOTE | 2024-06-07 16:15 | DI.RAD_ITS ---
Exam(s) XR PORTABLE CHEST AP EXAM: XR PORTABLE CHEST AP CLINICAL HISTORY: SOB, Hx Pneumonia TECHNIQUE: 2D digital imaging was performed of the chest. One image was obtained. An AP view was ob tained. COMPARISON: CR XR PORTABLE CHEST AP from 05/30/2024 FINDINGS: MEDIASTINUM: Normal. HEART: The heart is at the upper limits of normal in size. PULMONARY VASCULATURE: Normal. LUNGS: There has been significant improvement in the appearance of the chest with some clearing of th e lung bases. Small residual infiltrates persist. PLEURAL SPACE: There is blunting of the left costophrenic angle suggesting a small pleural effusion. BONE:Within normal limits for the patient's age. OTHER FINDINGS:Normal. IMPRESSION: Overall, improvement in the appearance of the chest x-ray since 05/30/2024. DATA REPOSITORY: RADIATION DOSE DELIVERED:
--- NOTE | 2024-06-07 16:15 | RT.EKG_ITS ---
APPROVED REPORT Exam: Resting ECG Reason for Exam: SOB Patient Location: E HR:79 bpm ECG Measurements Heart Rate 79 AXIS MS 168 P 63 QRSd 107 QRS 76 QT 432 T 19 QTc 497 Conclusion Sinus rhythm...normal P axis, V-rate 60- 99 Probable left atrial enlargement...P >50mS, <-0.10mV V1 Sinus rhythm normal axis no acute ischemic changes
[2024-06-07 16:18] VITALS: BP 111/68; PULSE 84; RESP 28; TEMP 36.8; O2SAT 88
--- NOTE | 2024-06-07 16:30 | W.ED.GENAD ---
Discharge Plan Disposition Patient Disposition: Home Condition: Stable Discharge Details Clinical Impression: Exertional shortness of breath, Chronic obstructive pulmonary disease with acute exacerbation Primary Care Provider: Alphonso Murphy ED Provider: Cindi Fox Home Meds and New Rx's Prescriptions: New prednisone 20 mg tablet 60 mg PO DAILY 9 Days Qty: 17 0RF Rx Instructions: Take 3 tabs daily x 3 days, Take 2 tabs daily x 3 days, Take one tab daily x 3 days. No Action pantoprazole 20 mg tablet,delayed release (DR/EC) 20 mg PO DAILY Qty: 90 3RF Rx Instructions: 04/13/23 Per GI. -hb ascorbic acid (vitamin C) 1,000 MG tablet 1,000 mg PO DAILY (DME) Aerochamber Mini 1 EACH spacer 1 ea Inhalation PRN Qty: 1 Rx Instructions: DIRECTED WITH INHALER BiPAP Inhalation Gas 5 l IN DIRECTED Rx Instructions: sleep apnea ([facility] sleep lab 2013) uses with oxygen betamethasone, augmented 0.05 % lotion 1 applic topical BID PRN (Reason: allergic reaction) Qty: 60 2RF ipratropium-albuterol 0.5 mg-3 mg(2.5 mg base)/3 mL solution for nebulization 3 ml IH QID MDD 4 nebs Qty: 180 3RF sertraline 50 mg tablet 50 mg PO DAILY Qty: 90 3RF levothyroxine 200 mcg tablet 200 mcg PO DAILY Qty: 90 3RF oxygen Inhalation 3 l Intranasal DIRECTED Patient Comments: Continuous and uses with bipap Rx Instructions: 3L/NC continuous albuterol sulfate 90 mcg/actuation HFA aerosol inhaler 1 - 2 puff Inhalation Q6H PRN Qty: 1 11RF alclometasone 0.05 % cream 1 applic topical BID PRN (Reason: itching) Qty: 45 1RF ketoconazole 2 % cream 1 applic topical BID PRN (Reason: facial rash) Qty: 60 1RF norethindrone acetate 5 mg tablet 10 mg PO BID Qty: 180 1RF ferrous sulfate 325 mg (65 mg iron) tablet 325 mg PO Q OTHER DAY Qty: 15 2RF potassium chloride [Klor-Con M20] 20 mEq Tablet,Er Particles/Crystals 20 meq PO DAILY Qty: 30 0RF prednisone 20 mg Tablet 40 mg PO DAILY Qty: 1 0RF furosemide 40 mg tablet 60 mg PO BID Qty: 180 3RF Rx Instructions: per operating room specialist at [facility] docusate sodium [Colace] 100 mg Capsule 100 mg PO DAILY Qty: 60 0RF nystatin 100,000 unit/gram powder 1 applic TP BID Qty: 30 5RF cefpodoxime 100 mg tablet 100 mg PO Q12H Qty: 8 0RF Rx Instructions: must administer with a meal/food BiomePRO 50 billion cell capsule,delayed release(DR/EC) 1 cap PO DAILY Qty: 4 0RF Rx Instructions: Take 3 hours apart form any antibiotics Discharge Instructions Instructions: COPD Exacerbation, Adult ED, Shortness of Breath, Adult ED Additional Instructions: At this time you are still recovering from the pneumonia however your chest x-rays have improved and your labs have largely improved. Of note your liver enzymes are elevated. Please follow-up with your primary care provider regarding this return to the ER if you have any nausea vomiting or abdominal pain. A prescription was sent to the pharmacy on file for prednisone tapering dose over the next 9 days please take as prescribed. You were given a dose of IV steroids today so you can start the steroids tomorrow. Please take your previously prescribed medications including the antibiotic. Follow up with primary care provider in 3-5 days. Return to ED sooner if any worsening or concerns. Referrals: Alphonso Murphy MD [Primary Care Provider] - 3 days Discharge Data Discharge Date/Time-TO BE ENTERED AT DEPARTURE: 06/07/24 18:12 HPI General Mode of arrival: wheelchair. Date/Time Provider Initiated Documentation: 06/07/24 16:21. Limitations to Documentation: no limitations. Information obtained by: patient, RN notes reviewed and old records reviewed. HPI Narrative: 69-year-old female with a past medical history of COPD, hypertension, pneumonia PE presents to the ER with chief complaint of increased shortness of breath since last night. She is oxygen dependent normally on 3 L nasal cannula she is satting 88% on the 3 L upon arrival. She was discharged from the hospital on Tuesday after being admitted for pneumonia. She reports that she had 2-day dose of steroids and she is still currently on 1 course of antibiotic. She denies any chest pain denies any fever or chills she does endorse a productive cough Related Data Home Medications ?Medication ?Instructions ?Recorded ?Confirmed ascorbic acid (vitamin C) 1,000 mg 1,000 mg PO DAILY 11/25/12 06/07/24 tablet inhalational spacing device ##1 12/21/13 06/07/24 (Aerochamber Mini) Bipap 5 l IN DIRECTED 07/23/14 06/07/24 betamethasone, augmented 0.05 % 1 applic topical BID PRN allergic 06/20/21 06/07/24 lotion reaction #60 mL ipratropium 0.5 mg-albuterol 3 mg 3 ml inhalation QID COPD 10/16/22 06/07/24 (2.5 mg base)/3 mL nebulization exacerbation/wheezing #180 mL soln pantoprazole 20 mg tablet,delayed 20 mg PO DAILY #90 tabs 08/04/23 06/07/24 release sertraline 50 mg tablet 50 mg PO DAILY #90 tabs 10/13/23 06/07/24 levothyroxine 200 mcg tablet 200 mcg PO DAILY #90 tabs 02/15/24 06/07/24 oxygen 3 l intranasal DIRECTED 04/02/24 06/07/24 ferrous sulfate 325 mg (65 mg 325 mg PO Q OTHER DAY #15 tabs 04/12/24 06/07/24 iron) tablet norethindrone acetate 5 mg tablet 10 mg (2 x 5 mg) PO BID #180 tabs 04/12/24 06/07/24 albuterol sulfate 90 mcg/actuation 1 - 2 puff inhalation Q6H PRN ##1 04/14/24 06/07/24 aerosol inhaler alclometasone 0.05 % topical cream 1 applic topical BID PRN itching 04/17/24 06/07/24 #45 grams ketoconazole 2 % topical cream 1 applic topical BID PRN facial 04/17/24 06/07/24 rash #60 grams L. acidophilus,casei,rhamnosus 50 1 cap PO DAILY #4 caps 06/04/24 06/07/24 billion cell capsule,delayed release (BiomePRO) cefpodoxime 100 mg tablet 100 mg PO Q12H #8 tabs 06/04/24 06/07/24 docusate sodium 100 mg capsule 100 mg PO DAILY #60 caps 06/04/24 06/07/24 (Colace) furosemide 40 mg tablet 60 mg (1.5 x 40 mg) PO BID #180 06/04/24 06/07/24 tabs nystatin 100,000 unit/gram topical 1 applic topical BID intertrigo 06/04/24 06/07/24 powder #30 grams potassium chloride 20 mEq 20 meq PO DAILY #30 tabs 06/04/24 06/07/24 tablet,extended release(part/cryst) (Klor-Con M) prednisone 20 mg tablet 40 mg (2 x 20 mg) PO DAILY #1 tab 06/04/24 06/07/24 prednisone 20 mg tablet 60 mg (3 x 20 mg) PO DAILY 06/07/24 Pneumonia 9 days #17 tabs Previous Rx's ?Medication ?Instructions ?Recorded betamethasone, augmented 0.05 % 1 applic topical BID PRN allergic 06/20/21 lotion reaction #60 mL ipratropium 0.5 mg-albuterol 3 mg 3 ml inhalation QID COPD 10/16/22 (2.5 mg base)/3 mL nebulization exacerbation/wheezing #180 mL soln pantoprazole 20 mg tablet,delayed 20 mg PO DAILY #90 tabs 08/04/23 release sertraline 50 mg tablet 50 mg PO DAILY #90 tabs 10/13/23 levothyroxine 200 mcg tablet 200 mcg PO DAILY #90 tabs 02/15/24 ferrous sulfate 325 mg (65 mg 325 mg PO Q OTHER DAY #15 tabs 04/12/24 iron) tablet norethindrone acetate 5 mg tablet 10 mg (2 x 5 mg) PO BID #180 tabs 04/12/24 albuterol sulfate 90 mcg/actuation 1 - 2 puff inhalation Q6H PRN ##1 04/14/24 aerosol inhaler alclometasone 0.05 % topical cream 1 applic topical BID PRN itching 04/17/24 #45 grams ketoconazole 2 % topical cream 1 applic topical BID PRN facial 04/17/24 rash #60 grams L. acidophilus,casei,rhamnosus 50 1 cap PO DAILY #4 caps 06/04/24 billion cell capsule,delayed release (BiomePRO) cefpodoxime 100 mg tablet 100 mg PO Q12H #8 tabs 06/04/24 docusate sodium 100 mg capsule 100 mg PO DAILY #60 caps 06/04/24 (Colace) furosemide 40 mg tablet 60 mg (1.5 x 40 mg) PO BID #180 06/04/24 tabs nystatin 100,000 unit/gram topical 1 applic topical BID intertrigo 06/04/24 powder #30 grams potassium chloride 20 mEq 20 meq PO DAILY #30 tabs 06/04/24 tablet,extended release(part/cryst) (Klor-Con M) prednisone 20 mg tablet 40 mg (2 x 20 mg) PO DAILY #1 tab 06/04/24 prednisone 20 mg tablet 60 mg (3 x 20 mg) PO DAILY 06/07/24 Pneumonia 9 days #17 tabs Allergies Allergy/AdvReac Type Severity Reaction Status Date / Time hydrocodone Allergy Severe ITCHING Verified 05/30/24 11:04 morphine Allergy Mild PRURITIS Verified 05/30/24 11:04 oxycodone Allergy Mild ITCHING Verified 05/30/24 11:04 General Stated Complaint: RespSymp REUBEN: 3 Review of Systems All systems reviewed & are unremarkable except as noted in HPI and below Cardiovascular Cardiovascular: Reports dyspnea Respiratory Respiratory: Reports as per HPI and Reports dyspnea Exam Narrative Exam Narrative: Constitutional: Alert and oriented x3. Appears stated age. Obese body habitus. Wheelchair-bound Head: Normocephalic, no trauma. Eyes: Pupils PERRL, Red reflex noted, EOM's intact. Eyelids symmetrical without lesions, discharge, or swelling. Chest: RRR, Normal S1, S2, distal pulses intact. Resp: Diminished bilaterally in the bases Abdomen: Soft, non-distended, Normoactive bowel sounds all 4 quads. Skin: No suspicious rashes or lesions. Capillary refill less than 2 sec. Neurologic: Cranial nerves II-XII intact. Alert and oriented x 3. Motor: No deficits noted. Sensory: Intact bilaterally all 4 extremities. Hematologic/Lymphatic: No ecchymosis, no lymphadenopathy. Course Vital Signs Vital signs: Vital Signs Temperature 36.8 C 06/07/24 16:18 Pulse 84 06/07/24 16:18 Respiratory Rate 28 H 06/07/24 16:18 Blood Pressure 111/68 06/07/24 16:18 Pulse Oximetry 88 L 06/07/24 16:18 Temperature 36.8 C 06/07/24 16:18 Temperature Source Temporal Artery Scan 06/07/24 16:18 Pulse 84 06/07/24 16:18 Respiratory Rate 28 H 06/07/24 16:18 Blood Pressure 111/68 06/07/24 16:18 Blood Pressure Position Sitting 06/07/24 16:18 Pulse Oximetry 88 L 06/07/24 16:18 Oxygen Delivery Method Nasal Cannula 06/07/24 16:18 Oxygen Flow Rate 3 06/07/24 16:18 Pain Level 0 06/07/24 16:18 Medical Decision Making 69-year-old female with a past medical history of COPD, hypertension, pneumonia PE presents to the ER with chief complaint of increased shortness of breath since last night. She is oxygen dependent normally on 3 L nasal cannula she is satting 88% on the 3 L upon arrival. She was discharged from the hospital on Tuesday after being admitted for pneumonia. She reports that she had 2-day dose of steroids and she is still currently on 1 course of antibiotic. She denies any chest pain denies any fever or chills she does endorse a productive cough EKG was reviewed by Dr. Tania Lanier ER attending, old EKG available for review, see official report, no ischemic changes noted. Workup ordered including CBC CMP VBG proBNP chest x-ray Fluvid swab. 125 Solu-Medrol IV ordered. Differential diagnose includes not limited to CAD, COPD exacerbation, CHF exacerbation, failed outpatient treatment. 1738: On patient reevaluation she is getting a DuoNeb at this time, labs are largely improved from previous chest x-ray is also looking improved. However white blood cell count is increasing at 16.75 this could be due to the steroids, pH 7.47 CO2 48 bicarb 35 total CO2 is 31 which is improved from her previous, sodium potassium within normal limits. Troponin within normal limits proBNP 256 Fluvid is pending at this time Patient DuoNeb is done she is satting 92 to 93% on room air. Will represcribe a tapering steroid dose. Will encourage follow-up with PCP. Of note her AST and ALT are elevated which is new patient is not complaining of any abdominal pain or nausea vomiting. Negative COVID flu RSV. Patient reports she feels better after the steroid administration and DuoNeb, discussed tricked return instructions, she verbalized understanding. Patient discharged in hemodynamically stable condition. This text was generated using [employer] system, please disregard any oddities of phrase or misspellings. Medical Records Medical records reviewed: Yes I reviewed the patient's medical records. Lab Data Lab results reviewed: Yes I reviewed the patient's lab results. Labs: Laboratory Tests Range/Units 06/07/24 16:46 WBC (4.4-10.8) 10^3/uL 16.75 H RBC (3.93-5.22) 10^6/uL 5.28 H Hgb (11.2-15.7) g/dL 14.6 Hct (36.0-46.0) % 45.0 MCV (80-95) fL 85 MCH (27.0-33.0) pg 27.7 MCHC (32.0-36.0) % 32.4 RDW (11.7-14.6) % 15.9 H Plt Count (130-400) 10^3/uL 379 MPV (8.0-11.0) fL 11.0 Immature Gran % % 1.3 Neutrophils % % 73.8 Lymphocytes % % 14.7 Monocytes % % 7.8 Eosinophils % % 2.0 Basophils % % 0.4 Nucleated RBC % (0.0-0.3) % 0.0 Absolute Neutrophils (1.2-6.7) 10^3/uL 12.36 H Absolute Lymphocytes (1.2-3.4) 10^3/uL 2.46 Absolute Monocytes (0.1-0.8) 10^3/uL 1.31 H Absolute Eosinophils (0.0-0.7) 10^3/uL 0.34 Absolute Basophils (0.0-0.2) 10^3/uL 0.07 VBG pH (7.31-7.41) 7.47 H VBG pCO2 (41-51) mmHg 48 VBG pO2 mmHg 47 VBG HCO3 (23-28) mmol/L 35 H VBG Total CO2 (24-29) mmol/L 31 H VBG O2 Saturation % 85 VBG Base Excess (-2-3) mmol/L 11 H Sodium (136-145) mmol/L 138 Potassium (3.5-5.1) mmol/L 3.5 Chloride (98-107) mmol/L 97 L Carbon Dioxide (21.0-32.0) mmol/L 33.8 H Anion Gap (3-11) mmol/L 7.2 BUN (7-18) mg/dL 16 Creatinine (0.55-1.02) mg/dL 0.8 Est GFR (CKD-EPI 2020) (mL/min/1.73m2) 80.21 Glucose (74-106) mg/dL 109 H Calcium (8.5-10.1) mg/dL 7.4 L Total Bilirubin (0.2-1.0) mg/dL 0.83 AST (15-37) U/L 958 H ALT (14-59) U/L 1654 H Alkaline Phosphatase (46-116) U/L 94 Troponin I (<or=51) ng/L 4 NT-Pro-B Natriuret Pep (<300) pg/mL 256 Total Protein (6.4-8.2) g/dL 7.8 Albumin (3.4-5.0) g/dL 2.5 L COVID-19 Source NASOPHARYNX SARS-CoV-2 (PCR) (Negative) Negative Influenza Type A (PCR) (Negative) Negative Influenza Type B (PCR) (Negative) Negative RSV (PCR) (Negative) Negative Quality:SDOH Health Related Social Needs: Health related social needs transportation insecurity(Z59.82) PFSH All Active Problems (Updated 06/07/24 @ 18:00 by Cindi Fox NP) Chronic obstructive pulmonary disease with acute exacerbation (Acute) Exertional shortness of breath (Acute) UTI (urinary tract infection) (Acute) Heart failure with preserved ejection fraction (Acute) Wound dehiscence (Acute) Thickened endometrium (Acute) Postmenopausal bleeding (Acute) COPD (chronic obstructive pulmonary disease) (Acute) Laceration of dobson (Acute) GERD (gastroesophageal reflux disease) (Chronic) had negative barium esophagram in 11/2022. Anxiety (Chronic) Venous stasis dermatitis (Acute) Chronic headaches (Chronic) Recent Neurology consult for possible papilledema. Urinary incontinence (Chronic) On Detrol Recurrent UTI (Chronic) Right ventricular dysfunction (Chronic) Knee pain, bilateral (Chronic 07/23/14) s/p bilat TKR (left infected with mult surg and decreased mobility) Morbid obesity (Acute 04/05/13) Sensorineural hearing loss, bilateral (Chronic 08/29/13) Advance directive on file (Acute) Low back pain with sciatica (Chronic 05/03/14) CT at [facility] L34 spinal stenosis Varicose veins of lower extremity (Chronic) Depression (Chronic) Grief at loss of child (Acute) Chronic respiratory failure with hypoxia and hypercapnia (Chronic) home BiPap Status post total bilateral knee replacement (Acute) Sprain of scapholunate ligament (Acute 03/21/19) DAVID (obstructive sleep apnea) (Chronic) on BiPap Hyperglycemia (Acute) Mixed conductive and sensorineural hearing loss of both ears (Acute) Right carpal tunnel syndrome (Acute) Arthritis of right hand (Acute) Impingement of right ulnar nerve (Acute) Dermoid cyst of neck (Acute) Hypothyroidism (Chronic) Microcalcifications of the breast (Acute) Neuropathy of left hand (Acute) Neuropathy of right hand (Acute) Bilateral carpal tunnel syndrome (Acute) Medical History Abnormal urinalysis Lymphedema Community acquired pneumonia Pneumonia Hx pulmonary embolism (~2015) treated with lovenox x 3 months Surgical History Status post thyroidectomy History of fasciotomy History of Surgical Procedure a. Right and left toal knee replacements. b. Left knee has been repeatedly operated on with slava surgies, three replacements. Replacement of total knee joint Bilateral; left-became [id number] surgeries Fasciotomy, Foot (~1996) LEFT Family History Mother Diabetes Personal history of malignant neoplasm LUNG Father Personal history of malignant neoplasm BRAIN Grandfather No problems noted. Grandfather No problems noted. Grandmother No problems noted. Grandmother No problems noted. Social History Smoking/Tobacco Use Status: Former Tobacco Use tobacco type: cigarettes Quit Date: 01/21/21 Second Hand Exposure: Yes Smoking risk assessment performed?: Yes Alcohol Intake: never Drug use: Never Substance use type: does not use Counseling given: No Housing: apartment Communication Needs: Hard of Hearing and Corrective Lenses Pets and animals: Yes Pets and animals: cat(s) Sexually active: Yes Current gender identity: female What is your relationship status?: never How often do you talk on the phone with friends or family?: decline to answer How often do you get together with friends or relatives?: decline to answer How often do you attend taoism or muslim services?: decline to answer Do you belong to any clubs or organized social groups?: no Panel score (0-1 are the most socially isolated patients): 0 Seatbelt use: never Do you feel safe at home: Yes Do you feel safe in your relationship?: Yes
[2024-06-07 16:58] LABS: Abs Immature Grans 0.21 10^3/uL (0.0-0.06); Absolute Lymphocyte Count 2.46 10^3/uL (1.2-3.4); Absolute Monocyte Count 1.31 10^3/uL (0.1-0.8); BE (Venous) 11 mmol/L (-2-3); Basophils % 0.4 %; HCO3 (Venous) 35 mmol/L (23-28); HGB 14.6 g/dL (11.2-15.7); Immature Grans % 1.3 %; Lymphocytes % 14.7 %; MCH 27.7 pg (27.0-33.0); MCHC 32.4 % (32.0-36.0); MCV 85 fL (80-95); Monocytes % 7.8 %; Neutrophils % 73.8 %; O2 Sat (Venous) 85 %; Platelet Count 379 10^3/uL (130-400); RBC 5.28 10^6/uL (3.93-5.22); RDW 15.9 % (11.7-14.6); RDW-SD 48.8 fL; TCO2 (Venous) 31 mmol/L (24-29); WBC 16.75 10^3/uL (4.4-10.8); pCO2 (Venous) 48 mmHg (41-51); pH (Venous) 7.47 (7.31-7.41); pO2 (Venous) 47 mmHg
[2024-06-07 17:02] LABS: Absolute Basophil Count 0.07 10^3/uL (0.0-0.2); Absolute Eosinophil Count 0.34 10^3/uL (0.0-0.7); Absolute Neutrophil Count 12.36 10^3/uL (1.2-6.7)
[2024-06-07 17:05] VITALS: O2SAT 95
[2024-06-07 17:17] VITALS: PULSE 76; RESP 19; RESP 3; RESP 6; O2SAT 93
[2024-06-07] MEDS: Albuterol/Ipratropium 3 ML UPD VIAL UPD (17:17)
[2024-06-07] MEDS: methylPREDNISolone SUCC 125 MG VIAL IVP (17:18)
[2024-06-07 17:24] LABS: Albumin 2.5 g/dL (3.4-5.0); Alkaline Phosphatase 94 U/L (46-116); Anion Gap 7.2 mmol/L (3-11); BUN 16 mg/dL (7-18); Bilirubin, Total 0.83 mg/dL (0.2-1.0); CO2 33.8 mmol/L (21.0-32.0); CREATININE 0.8 mg/dL (0.55-1.02); Chloride 97 mmol/L (98-107); Estimated GFR 80.21 (mL/min/1.73m2); Glucose 109 mg/dL (74-106); NT-proBNP 256 pg/mL (<300); Potassium 3.5 mmol/L (3.5-5.1); Sodium 138 mmol/L (136-145); Total Protein 7.8 g/dL (6.4-8.2); Troponin I 4 ng/L (<or=51)
[2024-06-07 17:27] LABS: AST 958 U/L (15-37)
[2024-06-07 17:30] LABS: Calcium 7.4 mg/dL (8.5-10.1)
[2024-06-07 17:32] VITALS: PULSE 75; RESP 22; O2SAT 98
[2024-06-07 17:36] LABS: COVID-19 PCR Negative (Negative); Influenza A PCR Negative (Negative); Influenza B PCR Negative (Negative); RSV PCR Negative (Negative)
[2024-06-07 17:39] LABS: Source NASOPHARYNX
[2024-06-07 17:40] VITALS: PULSE 79; RESP 22; O2SAT 98
[2024-06-07 17:43] VITALS: PULSE 82; RESP 23; TEMP 36.2; O2SAT 91
[2024-06-07 17:55] LABS: ALT 1654 U/L (14-59)
== END 2024-06-07 18:12 | disposition home or self-care (01) ==
PROVIDERS: Emergency Provider Registered Nurse Emergency; PCP Family Medicine
DX: J44.1 Chronic obstructive pulmonary disease with (acute) exacerbation (principal); R06.02 Shortness of breath; J18.9 Pneumonia, unspecified organism; Z87.891 Personal history of nicotine dependence
CPT/HCPCS: 80053; 82805; 87637; 93005; 94640; 96374; 99285; 71045; 83880; 84484; 85025; 93010; 99284; J2919; J7620

== ENCOUNTER 2024-06-18 11:23 | Outpatient (CLI) | payer MEDICARE, MEDICAID, SELFPAY ==
[2024-06-18 12:08] LABS: Abs Immature Grans 0.07 10^3/uL (0.0-0.06); Absolute Basophil Count 0.03 10^3/uL (0.0-0.2); Absolute Eosinophil Count 0.45 10^3/uL (0.0-0.7); Absolute Lymphocyte Count 1.68 10^3/uL (1.2-3.4); Absolute Monocyte Count 0.69 10^3/uL (0.1-0.8); Absolute Neutrophil Count 6.91 10^3/uL (1.2-6.7); Basophils % 0.3 %; Eosinophils % 4.6 %; HGB 13.8 g/dL (11.2-15.7); Immature Grans % 0.7 %; Lymphocytes % 17.1 %; MCH 27.5 pg (27.0-33.0); MCHC 32.1 % (32.0-36.0); MCV 86 fL (80-95); MPV 11.5 fL (8.0-11.0); Neutrophils % 70.3 %; Platelet Count 283 10^3/uL (130-400); RBC 5.01 10^6/uL (3.93-5.22); RDW-SD 53.2 fL; WBC 9.83 10^3/uL (4.4-10.8)
[2024-06-18 12:39] LABS: ALT 502 U/L (14-59); AST 215 U/L (15-37); Albumin 2.2 g/dL (3.4-5.0); Alkaline Phosphatase 85 U/L (46-116); Anion Gap 2.8 mmol/L (3-11); BUN 9 mg/dL (7-18); Bilirubin, Total 1.12 mg/dL (0.2-1.0); CO2 33.2 mmol/L (21.0-32.0); CREATININE 0.7 mg/dL (0.55-1.02); Calcium 8.5 mg/dL (8.5-10.1); Chloride 104 mmol/L (98-107); Estimated GFR 94.15 (mL/min/1.73m2); Glucose 85 mg/dL (74-106); Potassium 3.4 mmol/L (3.5-5.1); Sodium 140 mmol/L (136-145)
== END 2024-06-18 11:24 | disposition home or self-care (01) ==
LOC: LBO 11:24
PROVIDERS: PCP Family Medicine; Visit Provider Family Medicine
DX: R10.9 Unspecified abdominal pain (principal); D64.9 Anemia, unspecified
CPT/HCPCS: 36415; 80053; 85025

== ENCOUNTER 2024-06-26 12:07 | Inpatient (IN) | payer MEDICARE, MEDICAID, SELFPAY ==
[2024-06-26] VITALS (63 sets, daily range): BP systolic 108–159; BP diastolic 51–96; PULSE 67–143; RESP 5–35; TEMP 36–36.8; O2SAT 82–96
--- NOTE | 2024-06-26 12:00 | RT.EKG_ITS ---
APPROVED REPORT Exam: Resting ECG Reason for Exam: SOB Patient Location: E HR:98 bpm ECG Measurements Heart Rate 98 AXIS FL 162 P 48 QRSd 92 QRS 56 QT 352 T -24 QTc 450 Conclusion Sinus rhythm...normal P axis, V-rate 60- 99 Probable left atrial enlargement...P >50mS, <-0.10mV V1 Borderline T abnormalities, diffuse leads...T flat/neg
[2024-06-26] MEDS: Albuterol/Ipratropium 3 ML UPD VIAL UPD (12:15)
[2024-06-26] MEDS: Albuterol/Ipratropium 3 ML UPD VIAL ×3 (12:47→17:18)
[2024-06-26 12:53] LABS: BE (Venous) 5 mmol/L (-2-3); HCO3 (Venous) 30 mmol/L (23-28); Lactate 1.4 mmol/L (0.6-1.4); O2 Sat (Venous) 82 %; TCO2 (Venous) 28 mmol/L (24-29); pCO2 (Venous) 54 mmHg (41-51); pH (Venous) 7.36 (7.31-7.41); pO2 (Venous) 47 mmHg
[2024-06-26 12:54] LABS: Abs Immature Grans 0.11 10^3/uL (0.0-0.06); Absolute Basophil Count 0.05 10^3/uL (0.0-0.2); Absolute Eosinophil Count 0.27 10^3/uL (0.0-0.7); Absolute Lymphocyte Count 1.01 10^3/uL (1.2-3.4); Absolute Monocyte Count 1.07 10^3/uL (0.1-0.8); Absolute Neutrophil Count 10.17 10^3/uL (1.2-6.7); Basophils % 0.4 %; Eosinophils % 2.1 %; HCT 40.7 % (36.0-46.0); HGB 13.1 g/dL (11.2-15.7); Immature Grans % 0.9 %; MCH 27.6 pg (27.0-33.0); MCHC 32.2 % (32.0-36.0); MCV 86 fL (80-95); MPV 10.5 fL (8.0-11.0); Monocytes % 8.4 %; Neutrophils % 80.2 %; Platelet Count 342 10^3/uL (130-400); RBC 4.75 10^6/uL (3.93-5.22); RDW 17.4 % (11.7-14.6); RDW-SD 54.5 fL; WBC 12.68 10^3/uL (4.4-10.8)
[2024-06-26] MEDS: methylPREDNISolone SUCC 125 MG VIAL 80 MG IVP (13:03)
--- NOTE | 2024-06-26 13:22 | RESPIRATORY ---
Pt arrived to ED via EMS with SOB. Pt does not have her own home BiPAP with her. Normal setting 25/17, 3L bleed in. RT gave Duoneb updraft with good improvement in lung sounds. Pt able to speak in complete sentences and move herself from wheelchair to hospital bed. Pt is currently on her baseline 3L O2 with SpO2 92%. If pt is admitted to the floor, RT will provide hospital [id number] BiPAP for exacerbations, HS and naps. Pt is agreeable to this plan at this time.
[2024-06-26 13:25] LABS: ALT 299 U/L (14-59); AST 124 U/L (15-37); Albumin 2.1 g/dL (3.4-5.0); Alkaline Phosphatase 84 U/L (46-116); Anion Gap 4.9 mmol/L (3-11); BUN 10 mg/dL (7-18); Bilirubin, Total 1.14 mg/dL (0.2-1.0); CO2 32.1 mmol/L (21.0-32.0); CREATININE 0.7 mg/dL (0.55-1.02); Calcium 8.2 mg/dL (8.5-10.1); Chloride 102 mmol/L (98-107); Estimated GFR 94.15 (mL/min/1.73m2); Glucose 112 mg/dL (74-106); NT-proBNP 471 pg/mL (<300); Potassium 3.8 mmol/L (3.5-5.1); Sodium 139 mmol/L (136-145); Total Protein 7.5 g/dL (6.4-8.2); Troponin I 9 ng/L (<or=51)
[2024-06-26 13:43] LABS: Procalcitonin 0.12 ng/mL
--- NOTE | 2024-06-26 14:15 | RT.EKG_ITS ---
APPROVED REPORT Exam: Resting ECG Reason for Exam: shortness of breath Patient Location: E HR:122 bpm ECG Measurements Heart Rate 122 AXIS NV [id number] P [id number] QRSd 91 QRS 62 QT 320 T -49 QTc 457 Conclusion Atrial fibrillation...V-rate 95-152, irreg A-activity
--- NOTE | 2024-06-26 14:15 | DI.RAD_ITS ---
Exam(s) XR PORTABLE CHEST AP EXAM: XR PORTABLE CHEST AP CLINICAL HISTORY: SOB, hypoxic TECHNIQUE: 2D digital imaging was performed. COMPARISON: CR,XR XR PORTABLE CHEST AP from 04/10/2024 CR XR PORTABLE CHEST AP from 05/30/2024 FINDINGS: Exam is limited by under penetration and semi-erect positioning LUNGS: Increased interstitial markings suspicious for CHF. No large pleural effusion. Small effusio ns are not excluded. HEART: Grossly enlarged, obscuring visualization of large portions of the lungs. Pulmonary vasculatu re is prominent. AORTA: Normal diameter. BONES: Unremarkable for age. Soft tissues: Unremarkable. IMPRESSION: Limited exam. Cardiomegaly and findings suspicious for CHF. DATA REPOSITORY: RADIATION DOSE DELIVERED:
[2024-06-26 14:19] LABS: Troponin I 9 ng/L (<or=51)
[2024-06-26] MEDS: cefTRIAXone 1 GM/50 ML BAG IVPB ×2 (15:11→20:05)
[2024-06-26 15:12] LABS: BE (Venous) 3 mmol/L (-2-3); HCO3 (Venous) 28 mmol/L (23-28); O2 Sat (Venous) 88 %; TCO2 (Venous) 26 mmol/L (24-29); pCO2 (Venous) 47 mmHg (41-51); pH (Venous) 7.39 (7.31-7.41); pO2 (Venous) 53 mmHg
[2024-06-26] MEDS: Furosemide 40 MG/4 ML VIAL 60 MG IVP (15:12)
[2024-06-26 15:19] LABS: Bilirubin Small (Negative); Blood Large (Negative); Clarity Cloudy (Clear); Glucose Negative (Negative); Ketones Trace mg/dL (Negative); Leukocyte Esterase Negative (Negative); Nitrite Positive (Negative); Specific Gravity 1.025 (1.005-1.025); Urobilinogen >=8.0 mg/dL (Up to 0.2)
--- NOTE | 2024-06-26 15:31 | W.PM.HP.N ---
Date of service: 06/26/24 Time of Service: 15:31 Assessment and Plan Assessment and plan (1) Sepsis: Status: Acute Assessment and plan: Sepsis criteria:HR > 90, RR> 22 with WBC> 12 and probable urinary source On Ceftriaxone (2) CHF (congestive heart failure): Status: Chronic Assessment and plan: As per CXR report Atrial- fibrillation was transient as per EKG,now resolved- most likely related to fluid overload . Telemetry ordered On IV lasix BMP in AM (3) Acute and chronic respiratory failure: Status: Acute Assessment and plan: As above Titrate O2 as needed to maintain st 88-92% (4) Chronic obstructive pulmonary disease with acute exacerbation: Status: Acute Assessment and plan: Increased cough, sputum production and change in color On steroids and antibiotics (5) Postmenopausal bleeding: Status: Acute Assessment and plan: Continue home medicine regimen (6) GERD (gastroesophageal reflux disease): Status: Chronic Assessment and plan: Continue home PPI in AM IV PPI today d/t high dose IV steroids (7) Abnormal urinalysis: Assessment and plan: On ceftriaxone urine Cx pending discussed with Dr. Hicks History of Present Illness History of Present Illness Chief Complaint: Shortness of breath Narrative: This 61-year-old female patient with past medical history of COPD with oxygen dependence of 3 L via nasal cannula, CHF with last LVEF at 55%, presented to the ED with complaints of shortness of breath status post home BiPAP malfunctioning. The patient was supposed to receive a new tubing on 06/27/2024. The patient was tachycardic up to 122 in the ED initially in a sinus rhythm and then atrial fibrillation as per EKG then later converting to SR. Blood pressure was stable. Respiratory rate was up to 27 with initial saturation of 84% improving on BIPAP at 3l of O2. Significant workup in the ED pointed to suspicion of pulmonary congestion as per x-ray imaging. CBC showed leukocytosis at 12.68. LFTs showed mild transaminitis improving from previous levels completed on 06/07/2024. Urinalysis showed large amounts of blood positive nitrate and negative leukocyte esterase with 10-20 urine white blood cells.The hospitalist was consulted and the patient admitted for evaluation and management of COPD exacerbation, CHF exacerbation, sepsis, UTI. When seen in room , the patient reported, feeling a malaise for a couple of days around the time her CPAP machine broke. The patient reported vomiting yesterday and today w/o hematemesis due to increased cough with increased production of yellow sputum,no furhter nausea at this time.The patient denied fever, dizziness, chest pain, abdominal pain, diarrhea or dysuria. The patient reported ongoing history of uterine bleeding on norethindrone. Patient wants to be a full code. Review of Systems All systems reviewed & are unremarkable except as noted in HPI and below PFSH All Active Problems (Updated 06/26/24 @ 19:01 by Zoila De La Garza APRN) Sepsis (Acute) CHF (congestive heart failure) (Chronic) Atrial fibrillation (Chronic) COPD (chronic obstructive pulmonary disease) (Chronic) Acute and chronic respiratory failure (Acute) Elevated white blood cell count (Acute) Abnormal liver enzymes (Acute) Chronic obstructive pulmonary disease with acute exacerbation (Acute) Exertional shortness of breath (Acute) UTI (urinary tract infection) (Acute) Heart failure with preserved ejection fraction (Acute) Wound dehiscence (Acute) Thickened endometrium (Acute) Postmenopausal bleeding (Acute) COPD (chronic obstructive pulmonary disease) (Acute) Laceration of dobson (Acute) GERD (gastroesophageal reflux disease) (Chronic) had negative barium esophagram in 11/2022. Anxiety (Chronic) Venous stasis dermatitis (Acute) Chronic headaches (Chronic) Recent Neurology consult for possible papilledema. Urinary incontinence (Chronic) On Detrol Recurrent UTI (Chronic) Right ventricular dysfunction (Chronic) Knee pain, bilateral (Chronic 07/23/14) s/p bilat TKR (left infected with mult surg and decreased mobility) Morbid obesity (Acute 04/05/13) Sensorineural hearing loss, bilateral (Chronic 08/29/13) Advance directive on file (Acute) Low back pain with sciatica (Chronic 05/03/14) CT at [facility] [place] L34 spinal stenosis Varicose veins of lower extremity (Chronic) Depression (Chronic) Grief at loss of child (Acute) Chronic respiratory failure with hypoxia and hypercapnia (Chronic) home BiPap Status post total bilateral knee replacement (Acute) Sprain of scapholunate ligament (Acute 03/21/19) DAVID (obstructive sleep apnea) (Chronic) on BiPap Hyperglycemia (Acute) Mixed conductive and sensorineural hearing loss of both ears (Acute) Right carpal tunnel syndrome (Acute) Arthritis of right hand (Acute) Impingement of right ulnar nerve (Acute) Dermoid cyst of neck (Acute) Hypothyroidism (Chronic) Microcalcifications of the breast (Acute) Neuropathy of left hand (Acute) Neuropathy of right hand (Acute) Bilateral carpal tunnel syndrome (Acute) Medical History Abnormal urinalysis Lymphedema Community acquired pneumonia Pneumonia Hx pulmonary embolism (~2015) treated with lovenox x 3 months Surgical History Status post thyroidectomy History of fasciotomy History of Surgical Procedure a. Right and left toal knee replacements. b. Left knee has been repeatedly operated on with slava surgies, three replacements. Replacement of total knee joint Bilateral; left-became jykrqrqu-ihbssag-hwerjnyc surgeries Fasciotomy, Foot (~1996) LEFT Family History Mother Diabetes Personal history of malignant neoplasm LUNG Father Personal history of malignant neoplasm BRAIN Grandfather No problems noted. Grandfather No problems noted. Grandmother No problems noted. Grandmother No problems noted. Social History Smoking/Tobacco Use Status: Former Tobacco Use tobacco type: cigarettes Quit Date: 01/21/21 Second Hand Exposure: Yes Smoking risk assessment performed?: Yes Alcohol Intake: never Drug use: Never Substance use type: does not use Counseling given: No Housing: apartment Communication Needs: Hard of Hearing and Corrective Lenses Pets and animals: Yes Pets and animals: cat(s) Sexually active: Yes Current gender identity: female What is your relationship status?: never How often do you talk on the phone with friends or family?: decline to answer How often do you get together with friends or relatives?: decline to answer How often do you attend orthodoxy or taoist services?: decline to answer Do you belong to any clubs or organized social groups?: no Panel score (0-1 are the most socially isolated patients): 0 Seatbelt use: never Do you feel safe at home: Yes Do you feel safe in your relationship?: Yes Meds Allergies and Home Medications Allergies Allergy/AdvReac Type Severity Reaction Status Date / Time hydrocodone Allergy Severe ITCHING Verified 06/12/24 15:01 morphine Allergy Mild PRURITIS Verified 06/12/24 15:01 oxycodone Allergy Mild ITCHING Verified 06/12/24 15:01 Home Medications ?Medication ?Instructions ?Recorded ?Confirmed ?Type ascorbic acid (vitamin C) 1,000 mg 1,000 mg PO DAILY 11/25/12 06/26/24 History tablet inhalational spacing device ##1 12/21/13 06/26/24 History (Aerochamber Mini) Bipap 5 l IN DIRECTED 07/23/14 06/26/24 History betamethasone, augmented 0.05 % 1 applic topical BID PRN allergic 06/20/21 06/26/24 Rx lotion reaction #60 mL ipratropium 0.5 mg-albuterol 3 mg 3 ml inhalation QID COPD 10/16/22 06/26/24 Rx (2.5 mg base)/3 mL nebulization exacerbation/wheezing #180 mL soln pantoprazole 20 mg tablet,delayed 20 mg PO DAILY #90 tabs 08/04/23 06/26/24 Rx release sertraline 50 mg tablet 50 mg PO DAILY #90 tabs 10/13/23 06/26/24 Rx levothyroxine 200 mcg tablet 200 mcg PO DAILY #90 tabs 02/15/24 06/26/24 Rx oxygen 3 l intranasal DIRECTED 04/02/24 06/26/24 History ferrous sulfate 325 mg (65 mg 325 mg PO Q OTHER DAY #15 tabs 04/12/24 06/26/24 Rx iron) tablet norethindrone acetate 5 mg tablet 10 mg (2 x 5 mg) PO BID #180 tabs 04/12/24 06/26/24 Rx albuterol sulfate 90 mcg/actuation 1 - 2 puff inhalation Q6H PRN ##1 04/14/24 06/26/24 Rx aerosol inhaler alclometasone 0.05 % topical cream 1 applic topical BID PRN itching 04/17/24 06/26/24 Rx #45 grams ketoconazole 2 % topical cream 1 applic topical BID PRN facial 04/17/24 06/26/24 Rx rash #60 grams L. acidophilus,casei,rhamnosus 50 1 cap PO DAILY #4 caps 06/04/24 06/26/24 Rx billion cell capsule,delayed release (BiomePRO) furosemide 40 mg tablet 60 mg (1.5 x 40 mg) PO BID #180 06/04/24 06/26/24 Rx tabs nystatin 100,000 unit/gram topical 1 applic topical BID intertrigo 06/04/24 06/26/24 Rx powder #30 grams potassium chloride 20 mEq 20 meq PO DAILY #30 tabs 06/04/24 06/26/24 Rx tablet,extended release(part/cryst) (Klor-Con M) tirzepatide (weight loss) 2.5 2.5 mg (0.5 mL) subcut QWEEK #2 mL 06/12/24 06/26/24 Rx mg/0.5 mL subcutaneous pen injector (Zepbound) Exam Narrative Exam Narrative: Constitutional Morbidly obese patient in bed - speaks 5-6 word sentences HENMT: Facial structures with normal appearance Neuro:alert and oriented to self, person, place, time and situation. Nonfocal Resp: Coarse ronchi throughout clearing somewhat w cough, diffused exp wheezing to bilat lung dubose Cardio: regular rhythm, S1, S2, no murmur, bilateral radial and dorsalis pedis pulses are positive GI: Abdomen is large, not distended, soft and non tender, bowel sounds are present Extremities: Moves all 4 extremities Psych: RASS 0, congruent mood and normal affect. Results Labs 06/26/24 12:40 06/26/24 12:40 Labs: Laboratory Results - last 24 hr 06/26/24 06/26/24 06/26/24 12:40 13:42 15:05 WBC 12.68 H RBC 4.75 Hgb 13.1 Hct 40.7 MCV 86 MCH 27.6 MCHC 32.2 RDW 17.4 H Plt Count 342 MPV 10.5 Immature Gran % 0.9 Neutrophils % 80.2 Lymphocytes % 8.0 Monocytes % 8.4 Eosinophils % 2.1 Basophils % 0.4 Nucleated RBC % 0.0 Absolute Neutrophils 10.17 H Absolute Lymphocytes 1.01 L Absolute Monocytes 1.07 H Absolute Eosinophils 0.27 Absolute Basophils 0.05 VBG pH 7.36 7.39 VBG pCO2 54 H 47 VBG pO2 47 53 VBG HCO3 30 H 28 VBG Total CO2 28 26 VBG O2 Saturation 82 88 VBG Base Excess 5 H 3 VBG Lactate 1.4 Sodium 139 Potassium 3.8 Chloride 102 Carbon Dioxide 32.1 H Anion Gap 4.9 BUN 10 Creatinine 0.7 Est GFR (CKD-EPI 2020) 94.15 Glucose 112 H Calcium 8.2 L Total Bilirubin 1.14 H AST 124 H ALT 299 H Alkaline Phosphatase 84 Troponin I 9 9 NT-Pro-B Natriuret Pep 471 H Total Protein 7.5 Albumin 2.1 L Procalcitonin 0.12 06/26/24 15:32 WBC RBC Hgb Hct MCV MCH MCHC RDW Plt Count MPV Immature Gran % Neutrophils % Lymphocytes % Monocytes % Eosinophils % Basophils % Nucleated RBC % Absolute Neutrophils Absolute Lymphocytes Absolute Monocytes Absolute Eosinophils Absolute Basophils VBG pH VBG pCO2 VBG pO2 VBG HCO3 VBG Total CO2 VBG O2 Saturation VBG Base Excess VBG Lactate Sodium Potassium Chloride Carbon Dioxide Anion Gap BUN Creatinine Est GFR (CKD-EPI 2020) Glucose Calcium Total Bilirubin AST ALT Alkaline Phosphatase Troponin I Cancelled NT-Pro-B Natriuret Pep Total Protein Albumin Procalcitonin Last Vital Signs Temp 36.8 C 06/26/24 12:13 Pulse 116 H 06/26/24 14:46 Resp 27 H 06/26/24 15:10 BP 148/81 H 06/26/24 14:46 Pulse Ox 95 06/26/24 15:10 Time Spent Time spent with Patient: >75 minutes Time was spent: preparing to see the patient(eg.review tests), obtaining and/or reviewing separately otained hiistory, ordering medications,tests, procedures, referring, communicating with other health patient care manager, indepentently interpreting results, counseling the patient and care coordination
--- NOTE | 2024-06-26 15:34 | ED.GENADUL_ITS ---
Discharge Plan Disposition Patient Disposition: Admit to [facility] Condition: Critical Discharge Details Clinical Impression: Acute and chronic respiratory failure, COPD (chronic obstructive pulmonary disease), Atrial fibrillation, CHF (congestive heart failure) Admit Date/Time: 06/26/24 16:03 Admit Provider: Brandan Hicks Attending Provider: Brandan Hicks Primary Care Provider: Alphonso Murphy ED Provider: Jackie Scott Discharge Data Discharge Date/Time-TO BE ENTERED AT DEPARTURE: 06/26/24 17:35 HPI General Date/Time Provider Initiated Documentation: 06/26/24 12:11 . HPI Narrative: This 69-year-old female with history of oxygen dependence, CHF, COPD presents with report of shortness of breath with malfunctioning BiPAP at home. She is scheduled to receive a new tubing tomorrow. She denies known fever or chills. Baseline 3 L nasal cannula. Denies any abdominal pain, chest pain, or new calf pain or swelling. Denies prior history of PE. Related Data Home Medications ?Medication ?Instructions ?Recorded ?Confirmed ascorbic acid (vitamin C) 1,000 mg 1,000 mg PO DAILY 11/25/12 06/26/24 tablet inhalational spacing device ##1 12/21/13 06/26/24 (Aerochamber Mini) Bipap 5 l IN DIRECTED 07/23/14 06/26/24 betamethasone, augmented 0.05 % 1 applic topical BID PRN allergic 06/20/21 06/26/24 lotion reaction #60 mL ipratropium 0.5 mg-albuterol 3 mg 3 ml inhalation QID COPD 10/16/22 06/26/24 (2.5 mg base)/3 mL nebulization exacerbation/wheezing #180 mL soln pantoprazole 20 mg tablet,delayed 20 mg PO DAILY #90 tabs 08/04/23 06/26/24 release sertraline 50 mg tablet 50 mg PO DAILY #90 tabs 10/13/23 06/26/24 levothyroxine 200 mcg tablet 200 mcg PO DAILY #90 tabs 02/15/24 06/26/24 oxygen 3 l intranasal DIRECTED 04/02/24 06/26/24 ferrous sulfate 325 mg (65 mg 325 mg PO Q OTHER DAY #15 tabs 04/12/24 06/26/24 iron) tablet norethindrone acetate 5 mg tablet 10 mg (2 x 5 mg) PO BID #180 tabs 04/12/24 06/26/24 albuterol sulfate 90 mcg/actuation 1 - 2 puff inhalation Q6H PRN ##1 04/14/24 06/26/24 aerosol inhaler alclometasone 0.05 % topical cream 1 applic topical BID PRN itching 04/17/24 06/26/24 #45 grams ketoconazole 2 % topical cream 1 applic topical BID PRN facial 04/17/24 06/26/24 rash #60 grams L. acidophilus,casei,rhamnosus 50 1 cap PO DAILY #4 caps 06/04/24 06/26/24 billion cell capsule,delayed release (BiomePRO) furosemide 40 mg tablet 60 mg (1.5 x 40 mg) PO BID #180 06/04/24 06/26/24 tabs nystatin 100,000 unit/gram topical 1 applic topical BID intertrigo 06/04/24 06/26/24 powder #30 grams potassium chloride 20 mEq 20 meq PO DAILY #30 tabs 06/04/24 06/26/24 tablet,extended release(part/cryst) (Klor-Con M) tirzepatide (weight loss) 2.5 2.5 mg (0.5 mL) subcut QWEEK #2 mL 06/12/24 06/26/24 mg/0.5 mL subcutaneous pen injector (Zepbound) Previous Rx's ?Medication ?Instructions ?Recorded betamethasone, augmented 0.05 % 1 applic topical BID PRN allergic 06/20/21 lotion reaction #60 mL ipratropium 0.5 mg-albuterol 3 mg 3 ml inhalation QID COPD 10/16/22 (2.5 mg base)/3 mL nebulization exacerbation/wheezing #180 mL soln pantoprazole 20 mg tablet,delayed 20 mg PO DAILY #90 tabs 08/04/23 release sertraline 50 mg tablet 50 mg PO DAILY #90 tabs 10/13/23 levothyroxine 200 mcg tablet 200 mcg PO DAILY #90 tabs 02/15/24 ferrous sulfate 325 mg (65 mg 325 mg PO Q OTHER DAY #15 tabs 04/12/24 iron) tablet norethindrone acetate 5 mg tablet 10 mg (2 x 5 mg) PO BID #180 tabs 04/12/24 albuterol sulfate 90 mcg/actuation 1 - 2 puff inhalation Q6H PRN ##1 04/14/24 aerosol inhaler alclometasone 0.05 % topical cream 1 applic topical BID PRN itching 04/17/24 #45 grams ketoconazole 2 % topical cream 1 applic topical BID PRN facial 04/17/24 rash #60 grams L. acidophilus,casei,rhamnosus 50 1 cap PO DAILY #4 caps 06/04/24 billion cell capsule,delayed release (BiomePRO) furosemide 40 mg tablet 60 mg (1.5 x 40 mg) PO BID #180 06/04/24 tabs nystatin 100,000 unit/gram topical 1 applic topical BID intertrigo 06/04/24 powder #30 grams potassium chloride 20 mEq 20 meq PO DAILY #30 tabs 06/04/24 tablet,extended release(part/cryst) (Klor-Con M) tirzepatide (weight loss) 2.5 2.5 mg (0.5 mL) subcut QWEEK #2 mL 06/12/24 mg/0.5 mL subcutaneous pen injector (Zepbound) Allergies Allergy/AdvReac Type Severity Reaction Status Date / Time hydrocodone Allergy Severe ITCHING Verified 06/12/24 15:01 morphine Allergy Mild PRURITIS Verified 06/12/24 15:01 oxycodone Allergy Mild ITCHING Verified 06/12/24 15:01 General Stated Complaint: SOB REUBEN: 3 Exam Narrative Exam Narrative: 69-year-old female presenting in acute respiratory distress, moderate, increased work of breathing, tachypnea with wheezes and diminished throughout, pupils equal round reactive to light and accommodation, speaking in 2-3 word sentences, moist mucous membranes, lymphedema to bilateral lower extremities without evidence of obvious infection, no murmur, alert and oriented x 4, morbidly obese with lymphedema Course Vital Signs Vital signs: Vital Signs Temperature 36.8 C 06/26/24 12:13 Pulse 98 H 06/26/24 12:13 Respiratory Rate 20 06/26/24 12:13 Blood Pressure 141/72 H 06/26/24 12:13 Pulse Oximetry 84 L 06/26/24 12:13 Temperature 36.8 C 06/26/24 12:13 Temperature Source Oral 06/26/24 12:13 Pulse 116 H 06/26/24 14:46 Pulse 125 H 06/26/24 15:10 Respiratory Rate 27 H 06/26/24 15:10 Respiratory Effort Short of Breath 06/26/24 13:04 Respiratory Pattern Tachypnea 06/26/24 13:04 Blood Pressure 148/81 H 06/26/24 14:46 Blood Pressure Mean 103 06/26/24 14:46 Blood Pressure Position Sitting 06/26/24 12:13 Pulse Oximetry 95 06/26/24 15:10 Oxygen Delivery Method Nasal Cannula 06/26/24 13:13 Oxygen Flow Rate 3 06/26/24 13:13 Fraction of Inspired Oxygen (FIO2) 32 06/26/24 13:36 Lab/Test Results Lab/Test Results: 06/26/24 13:42 Blood Blood Culture - Pending 06/26/24 12:40 Blood Blood Culture - Pending Laboratory Tests Range/Units 06/26/24 06/26/24 06/26/24 12:40 13:42 15:05 WBC (4.4-10.8) 10^3/uL 12.68 H RBC (3.93-5.22) 10^6/uL 4.75 Hgb (11.2-15.7) g/dL 13.1 Hct (36.0-46.0) % 40.7 MCV (80-95) fL 86 MCH (27.0-33.0) pg 27.6 MCHC (32.0-36.0) % 32.2 RDW (11.7-14.6) % 17.4 H Plt Count (130-400) 10^3/uL 342 MPV (8.0-11.0) fL 10.5 Immature Gran % % 0.9 Neutrophils % % 80.2 Lymphocytes % % 8.0 Monocytes % % 8.4 Eosinophils % % 2.1 Basophils % % 0.4 Nucleated RBC % (0.0-0.3) % 0.0 Absolute Neutrophils (1.2-6.7) 10^3/uL 10.17 H Absolute Lymphocytes (1.2-3.4) 10^3/uL 1.01 L Absolute Monocytes (0.1-0.8) 10^3/uL 1.07 H Absolute Eosinophils (0.0-0.7) 10^3/uL 0.27 Absolute Basophils (0.0-0.2) 10^3/uL 0.05 VBG pH (7.31-7.41) 7.36 7.39 VBG pCO2 (41-51) mmHg 54 H 47 VBG pO2 mmHg 47 53 VBG HCO3 (23-28) mmol/L 30 H 28 VBG Total CO2 (24-29) mmol/L 28 26 VBG O2 Saturation % 82 88 VBG Base Excess (-2-3) mmol/L 5 H 3 VBG Lactate (0.6-1.4) mmol/L 1.4 Sodium (136-145) mmol/L 139 Potassium (3.5-5.1) mmol/L 3.8 Chloride (98-107) mmol/L 102 Carbon Dioxide (21.0-32.0) mmol/L 32.1 H Anion Gap (3-11) mmol/L 4.9 BUN (7-18) mg/dL 10 Creatinine (0.55-1.02) mg/dL 0.7 Est GFR (CKD-EPI 2020) (mL/min/1.73m2) 94.15 Glucose (74-106) mg/dL 112 H Calcium (8.5-10.1) mg/dL 8.2 L Total Bilirubin (0.2-1.0) mg/dL 1.14 H AST (15-37) U/L 124 H ALT (14-59) U/L 299 H Alkaline Phosphatase (46-116) U/L 84 Troponin I (<or=51) ng/L 9 9 NT-Pro-B Natriuret Pep (<300) pg/mL 471 H Total Protein (6.4-8.2) g/dL 7.5 Albumin (3.4-5.0) g/dL 2.1 L Procalcitonin ng/mL 0.12 Range/Units 06/26/24 15:32 WBC (4.4-10.8) 10^3/uL RBC (3.93-5.22) 10^6/uL Hgb (11.2-15.7) g/dL Hct (36.0-46.0) % MCV (80-95) fL MCH (27.0-33.0) pg MCHC (32.0-36.0) % RDW (11.7-14.6) % Plt Count (130-400) 10^3/uL MPV (8.0-11.0) fL Immature Gran % % Neutrophils % % Lymphocytes % % Monocytes % % Eosinophils % % Basophils % % Nucleated RBC % (0.0-0.3) % Absolute Neutrophils (1.2-6.7) 10^3/uL Absolute Lymphocytes (1.2-3.4) 10^3/uL Absolute Monocytes (0.1-0.8) 10^3/uL Absolute Eosinophils (0.0-0.7) 10^3/uL Absolute Basophils (0.0-0.2) 10^3/uL VBG pH (7.31-7.41) VBG pCO2 (41-51) mmHg VBG pO2 mmHg VBG HCO3 (23-28) mmol/L VBG Total CO2 (24-29) mmol/L VBG O2 Saturation % VBG Base Excess (-2-3) mmol/L VBG Lactate (0.6-1.4) mmol/L Sodium (136-145) mmol/L Potassium (3.5-5.1) mmol/L Chloride (98-107) mmol/L Carbon Dioxide (21.0-32.0) mmol/L Anion Gap (3-11) mmol/L BUN (7-18) mg/dL Creatinine (0.55-1.02) mg/dL Est GFR (CKD-EPI 2020) (mL/min/1.73m2) Glucose (74-106) mg/dL Calcium (8.5-10.1) mg/dL Total Bilirubin (0.2-1.0) mg/dL AST (15-37) U/L ALT (14-59) U/L Alkaline Phosphatase (46-116) U/L Troponin I (<or=51) ng/L Cancelled NT-Pro-B Natriuret Pep (<300) pg/mL Total Protein (6.4-8.2) g/dL Albumin (3.4-5.0) g/dL Procalcitonin ng/mL Medical Decision Making 69-year-old female presenting in acute respiratory distress, given hypoxia at 84% and respiratory distress, BiPAP was initiated immediately with 3 DuoNeb treatments, respiratory was called patient has improved aeration and respiratory exam. Chest x-ray shows evidence of volume overload status with history of CHF we will give 60 mg of IV Lasix. She takes 60 mg p.o. Lasix at home. Of note, approximately an hour and a half and patient stated she went into atrial f ibrillation with RVR. This is new atrial fibrillation from what I can see. Patient does not endorse any prior history and I see no prior EKGs displaying this rhythm. Her blood pressure remained stable. I will hold rate control meds at this time given patient is quite sick possibly from a urinary tract infection. Schmitt catheterization was placed secondary to likely volume overload status and it was noted that patient's urine was dark, cloudy and bloody with clots. She did have a recent urinary tract infection I did treat into empirically for bronchitis and UTI with ceftriaxone and Doxy. There is no evidence of pneumonia on chest x-ray and so I think doxycycline and ceftriaxone are reasonable at this time although should patient develop evidence of pneumonia she will likely need treatment for hospital-acquired pneumonia. 80 mg of methylprednisone secondary to COPD history was initiated. Secondary to volume overload status in the presence of likely CHF, I did order 60 mg of Lasix . At this time patient will require hospital admission. She is full CODE STATUS, confirmed with patient. Case discussed with the hospitalist who will admit patient to his service. VBG improving with bicarb from 54 down to 47. Mild leukocytosis at 12,000. Transaminases are mildly elevated, this is consistent with patient's prior assessment no abdominal tenderness on exam troponins negative, BNP 467. Reviewed prior echocardiogram with preserved ejection fraction. Quality:[facility] Health Related Social Needs: Health related social needs transportation insecurity( Z59.82) Critical Care Time Critical Care Time Attestation: 55 minutes of critical care time secondary to sepsis, CHF with exacerbation, new onset atrial fibrillation requiring IV Lasix diuresis in the presence of acute CHF likely related to intermittent atrial fibrillation, IV antibiotics secondary to acute urinary tract infection and likely bronchitis superimposed COPD, acute respiratory failure requiring BiPAP administration, telemetry monitoring, chest x-ray interpretation review, diagnostic lab interpretation review, consultation with the hospitalist, bronchodilators, IV steroids, admission [facility] the [facility] All Active Problems (Updated 06/26/24 @ 19:01 by Zoila De La Garza APRN) Sepsis (Acute) CHF (congestive heart failure) (Chronic) Atrial fibrillation (Chronic) COPD (chronic obstructive pulmonary disease) (Chronic) Acute and chronic respiratory failure (Acute) Elevated white blood cell count (Acute) Abnormal liver enzymes (Acute) Chronic obstructive pulmonary disease with acute exacerbation (Acute) Exertional shortness of breath (Acute) UTI (urinary tract infection) (Acute) Heart failure with preserved ejection fraction (Acute) Wound dehiscence (Acute) Thickened endometrium (Acute) Postmenopausal bleeding (Acute) COPD (chronic obstructive pulmonary disease) (Acute) Laceration of dobson (Acute) GERD (gastroesophageal reflux disease) (Chronic) had negative barium esophagram in 11/2022. Anxiety (Chronic) Venous stasis dermatitis (Acute) Chronic headaches (Chronic) Recent Neurology consult for possible papilledema. Urinary incontinence (Chronic) On Detrol Recurrent UTI (Chronic) Right ventricular dysfunction (Chronic) Knee pain, bilateral (Chronic 07/23/14) s/p bilat TKR (left infected with mult surg and decreased mobility) Morbid obesity (Acute 04/05/13) Sensorineural hearing loss, bilateral (Chronic 08/29/13) Advance directive on file (Acute) Low back pain with sciatica (Chronic 05/03/14) CT at [facility] [place] L34 spinal stenosis Varicose veins of lower extremity (Chronic) Depression (Chronic) Grief at loss of child (Acute) Chronic respiratory failure with hypoxia and hypercapnia (Chronic) home BiPap Status post total bilateral knee replacement (Acute) Sprain of scapholunate ligament (Acute 03/21/19) DAVID (obstructive sleep apnea) (Chronic) on BiPap Hyperglycemia (Acute) Mixed conductive and sensorineural hearing loss of both ears (Acute) Right carpal tunnel syndrome (Acute) Arthritis of right hand (Acute) Impingement of right ulnar nerve (Acute) Dermoid cyst of neck (Acute) Hypothyroidism (Chronic) Microcalcifications of the breast (Acute) Neuropathy of left hand (Acute) Neuropathy of right hand (Acute) Bilateral carpal tunnel syndrome (Acute) Medical History Abnormal urinalysis Lymphedema Community acquired pneumonia Pneumonia Hx pulmonary embolism (~2016) treated with lovenox x 3 months Surgical History Status post thyroidectomy History of fasciotomy History of Surgical Procedure a. Right and left toal knee replacements. b. Left knee has been repeatedly operated on with slava surgies, three replacements. Replacement of total knee joint Bilateral; left-became [id number] surgeries Fasciotomy, Foot (~1996) LEFT Family History Mother Diabetes Personal history of malignant neoplasm LUNG Father Personal history of malignant neoplasm BRAIN Grandfather No problems noted. Grandfather No problems noted. Grandmother No problems noted. Grandmother No problems noted. Social History Smoking/Tobacco Use Status: Former Tobacco Use tobacco type: cigarettes Quit Date: 01/21/21 Second Hand Exposure: Yes Smoking risk assessment performed?: Yes Alcohol Intake: never Drug use: Never Substance use type: does not use Counseling given: No Housing: apartment Communication Needs: Hard of Hearing and Corrective Lenses Pets and animals: Yes Pets and animals: cat(s) Sexually active: Yes Current gender identity: female What is your relationship status?: never How often do you talk on the phone with friends or family?: decline to answer How often do you get together with friends or relatives?: decline to answer How often do you attend amish or faith services?: decline to answer Do you belong to any clubs or organized social groups?: no Panel score (0-1 are the most socially isolated patients): 0 Seatbelt use: never Do you feel safe at home: Yes Do you feel safe in your relationship?: Yes
[2024-06-26 15:42] LABS: Bacteria Packed HPF (Negative)
[2024-06-26 15:44] LABS: C & S Indicated? Yes; Epithelial Cells Few HPF (Negative); RBC 20-50 HPF (0-2)
[2024-06-26 15:46] LABS: Other Cells Few Transitional (Negative)
[2024-06-26 16:19] LABS: Magnesium 2.1 mg/dL (1.8-2.4); TSH (W/Ref FT4) 0.76 uIU/mL (0.36-3.74)
--- NOTE | 2024-06-26 17:00 | RT.EKG_ITS ---
APPROVED REPORT Exam: Resting ECG Reason for Exam: SOB Patient Location: E HR:89 bpm ECG Measurements Heart Rate 89 AXIS IA 174 P 56 QRSd 101 QRS 61 QT 385 T 13 QTc 470 Conclusion Sinus rhythm...normal P axis, V-rate 60- 99 no STEMI
[2024-06-26 17:34] LABS: COVID-19 PCR Negative (Negative); Influenza A PCR Negative (Negative); Influenza B PCR Negative (Negative); RSV PCR Negative (Negative); Source Nasopharynx
--- NOTE | 2024-06-26 18:16 | W.PC.ACHO ---
Registration Status: Primary Language: Preferred Language: ED Information & Data Chief Complaint SOB 06/26/24 15:41 Triage Note increased sob over the last 06/26/24 12:13 few days, worsening today. Wears 3L/NC daily. cough, not sure about a fever Subjective Appears somnolent. RT in 06/26/24 12:48 room. Medical / Surgical History (Last Reviewed 06/07/24 @ 16:31 by Cindi Fox NP) Abnormal urinalysis Lymphedema Community acquired pneumonia Pneumonia Hx pulmonary embolism (~2015) (Last Reviewed 06/07/24 @ 16:31 by Cindi Fox NP) Status post thyroidectomy History of fasciotomy History of Surgical Procedure Replacement of total knee joint Fasciotomy, Foot (~1996) Most Recent Vital Signs Temperature 36.8 C 06/26/24 12:13 Temperature Source Oral 06/26/24 12:13 Pulse 89 06/26/24 17:31 Pulse Rhythm Regular 06/26/24 17:59 Pulse 90 06/26/24 17:31 Respiratory Rate 23 06/26/24 17:31 Respiratory Effort Short of Breath, Labored, Accessory Muscle Use 06/26/24 17:59 Respiratory Depth Shallow 06/26/24 17:59 Respiratory Pattern Tachypnea 06/26/24 17:59 Blood Pressure 108/51 L 06/26/24 17:31 Blood Pressure Mean 69 06/26/24 17:31 Blood Pressure Position Sitting 06/26/24 12:13 Pulse Oximetry 94 06/26/24 17:31 Oxygen Delivery Method Bi-pap 06/26/24 17:18 Oxygen Flow Rate 3 06/26/24 13:13 Fraction of Inspired Oxygen (FIO2) 36 06/26/24 17:18 Allergies hydrocodone Allergy (Severe, Verified 06/12/24 15:01) ITCHING morphine Allergy (Mild, Verified 06/12/24 15:01) PRURITIS oxycodone Allergy (Mild, Verified 06/12/24 15:01) ITCHING Precautions Isolation Droplet precaution 06/26/24 12:48 IV IV Catheter Type [Left Forearm Saline Lock ] IV Catheter Gauge [Left 18 Forearm] Diet Orders Category Date Time Status Heart Healthy Eating [DIET] Nutrition 06/26/24 Dinner Active Diagnostics 06/26/24 06/26/24 06/26/24 Range/Units 16:51 15:32 15:09 WBC (4.4-10.8) 10^3/uL RBC (3.93-5.22) 10^6/uL Hgb (11.2-15.7) g/dL Hct (36.0-46.0) % MCV (80-95) fL MCH (27.0-33.0) pg MCHC (32.0-36.0) % RDW (11.7-14.6) % Plt Count (130-400) 10^3/uL MPV (8.0-11.0) fL Immature Gran % % Neutrophils % % Lymphocytes % % Monocytes % % Eosinophils % % Basophils % % Nucleated RBC % (0.0-0.3) % Absolute Neutrophils (1.2-6.7) 10^3/uL Absolute Lymphocytes (1.2-3.4) 10^3/uL Absolute Monocytes (0.1-0.8) 10^3/uL Absolute Eosinophils (0.0-0.7) 10^3/uL Absolute Basophils (0.0-0.2) 10^3/uL VBG pH (7.31-7.41) VBG pCO2 (41-51) mmHg VBG pO2 mmHg VBG HCO3 (23-28) mmol/L VBG Total CO2 (24-29) mmol/L VBG O2 Saturation % VBG Base Excess (-2-3) mmol/L VBG Lactate (0.6-1.4) mmol/L Sodium (136-145) mmol/L Potassium (3.5-5.1) mmol/L Chloride (98-107) mmol/L Carbon Dioxide (21.0-32.0) mmol/L Anion Gap (3-11) mmol/L BUN (7-18) mg/dL Creatinine (0.55-1.02) mg/dL Est GFR (CKD-EPI 2020) (mL/min/1.73m2) Glucose (74-106) mg/dL Calcium (8.5-10.1) mg/dL Magnesium (1.8-2.4) mg/dL Total Bilirubin (0.2-1.0) mg/dL AST (15-37) U/L ALT (14-59) U/L Alkaline Phosphatase (46-116) U/L Troponin I Cancelled (<or=51) ng/L NT-Pro-B Natriuret Pep (<300) pg/mL Total Protein (6.4-8.2) g/dL Albumin (3.4-5.0) g/dL Procalcitonin ng/mL TSH (0.36-3.74) uIU/mL Urine Color Yellow (Yellow) Urine Clarity Cloudy (Clear) Urine pH 6.0 (5-8) Ur Specific [place] 1.025 (1.005-1.025) Urine Protein >=300 H (Neg-Trace) mg/dL Urine Ketones Trace H (Negative) mg/dL Urine Blood Large H (Negative) Urine Nitrite Positive H (Negative) Urine Bilirubin Small H (Negative) Urine Urobilinogen >=8.0 H (Up to 0.2) mg/dL Ur Leukocyte Esterase Negative (Negative) Urine RBC 20-50 H (0-2) HPF Urine WBC 10-20 H (0-5) HPF Ur Epithelial Cells Few (Negative) HPF Urine Crystals Not Applicable Urine Bacteria Packed (Negative) HPF Urine Mucus Not Applicable Urine Other Few Transitional (Negative) Ur Culture Indicated? Yes Urine Glucose Negative (Negative) mg/dL COVID-19 Source Nasopharynx SARS-CoV-2 (PCR) Negative (Negative) Influenza Type A (PCR) Negative (Negative) Influenza Type B (PCR) Negative (Negative) RSV (PCR) Negative (Negative) 06/26/24 06/26/24 06/26/24 Range/Units 15:05 13:42 12:40 WBC 12.68 H (4.4-10.8) 10^3/uL RBC 4.75 (3.93-5.22) 10^6/uL Hgb 13.1 (11.2-15.7) g/dL Hct 40.7 (36.0-46.0) % MCV 86 (80-95) fL MCH 27.6 (27.0-33.0) pg MCHC 32.2 (32.0-36.0) % RDW 17.4 H (11.7-14.6) % Plt Count 342 (130-400) 10^3/uL MPV 10.5 (8.0-11.0) fL Immature Gran % 0.9 % Neutrophils % 80.2 % Lymphocytes % 8.0 % Monocytes % 8.4 % Eosinophils % 2.1 % Basophils % 0.4 % Nucleated RBC % 0.0 (0.0-0.3) % Absolute Neutrophils 10.17 H (1.2-6.7) 10^3/uL Absolute Lymphocytes 1.01 L (1.2-3.4) 10^3/uL Absolute Monocytes 1.07 H (0.1-0.8) 10^3/uL Absolute Eosinophils 0.27 (0.0-0.7) 10^3/uL Absolute Basophils 0.05 (0.0-0.2) 10^3/uL VBG pH 7.39 7.36 (7.31-7.41) VBG pCO2 47 54 H (41-51) mmHg VBG pO2 53 47 mmHg VBG HCO3 28 30 H (23-28) mmol/L VBG Total CO2 26 28 (24-29) mmol/L VBG O2 Saturation 88 82 % VBG Base Excess 3 5 H (-2-3) mmol/L VBG Lactate 1.4 (0.6-1.4) mmol/L Sodium 139 (136-145) mmol/L Potassium 3.8 (3.5-5.1) mmol/L Chloride 102 (98-107) mmol/L Carbon Dioxide 32.1 H (21.0-32.0) mmol/L Anion Gap 4.9 (3-11) mmol/L BUN 10 (7-18) mg/dL Creatinine 0.7 (0.55-1.02) mg/dL Est GFR (CKD-EPI 2020) 94.15 (mL/min/1.73m2) Glucose 112 H (74-106) mg/dL Calcium 8.2 L (8.5-10.1) mg/dL Magnesium 2.1 (1.8-2.4) mg/dL Total Bilirubin 1.14 H (0.2-1.0) mg/dL AST 124 H (15-37) U/L ALT 299 H (14-59) U/L Alkaline Phosphatase 84 (46-116) U/L Troponin I 9 9 (<or=51) ng/L NT-Pro-B Natriuret Pep 471 H (<300) pg/mL Total Protein 7.5 (6.4-8.2) g/dL Albumin 2.1 L (3.4-5.0) g/dL Procalcitonin 0.12 ng/mL TSH 0.76 (0.36-3.74) uIU/mL Urine Color (Yellow) Urine Clarity (Clear) Urine pH (5-8) Ur Specific [place] (1.005-1.025) Urine Protein (Neg-Trace) mg/dL Urine Ketones (Negative) mg/dL Urine Blood (Negative) Urine Nitrite (Negative) Urine Bilirubin (Negative) Urine Urobilinogen (Up to 0.2) mg/dL Ur Leukocyte Esterase (Negative) Urine RBC (0-2) HPF Urine WBC (0-5) HPF Ur Epithelial Cells (Negative) HPF Urine Crystals Urine Bacteria (Negative) HPF Urine Mucus Urine Other (Negative) Ur Culture Indicated? Urine Glucose (Negative) mg/dL COVID-19 Source SARS-CoV-2 (PCR) (Negative) Influenza Type A (PCR) (Negative) Influenza Type B (PCR) (Negative) RSV (PCR) (Negative) 06/26/24 15:09 Urine Culture - Pending Urine - Reflex from Ua 06/26/24 13:42 Blood Culture - Pending Blood 06/26/24 12:40 Blood Culture - Pending Blood Intake and Output - 24 Hour Total 06/26/24 12:07 thru 06/26/24 17:59 Output Total 1000 Balance -1000 Weight 176.901 kg Output: Urine 1000 Other: Urine Color Yellow Urine Appearance Cloudy Urinary Catheter Urinary Catheter Date of 06/26/24 Insertion [Urethral (Schmitt)] Time of insertion [Urethral ( 15:15 Schmitt)] Falls Risk Assessment History of Falls Previous History 06/26/24 17:59 Contributing Factors Impairments,Incontinence 06/26/24 17:59 Ambulatory Aids Uses ambulatory device + 06/26/24 17:59 Tubes/Lines With any additional score 06/26/24 17:59 Gait Evaluation W/any additional score 06/26/24 17:59 Cognition No cognitive impairment 06/26/24 17:59 Fall Total Score 91 06/26/24 17:59 Level of Risk Maximum Risk 06/26/24 17:59 Notes 06/26/24 13:22 Respiratory by Taco Polo Pt arrived to ED via EMS with SOB. Pt does not have her own home BiPAP with her. Normal setting , 3L bleed in. RT gave Duoneb updraft with good improvement in lung sounds. Pt able to speak in complete sentences and move herself from wheelchair to hospital bed. Pt is currently on her baseline 3L O2 with SpO2 92%. If pt is admitted to the floor, RT will provide hospital [id number] BiPAP for exacerbations, HS and naps. Pt is agreeable to this plan at this time. Initialized on 06/26/24 13:22 - END OF NOTE v v v v v v v v v Sending and/or Receiving Nurses: Please use comment section below to note any information pertinent to the patient hand-off not included above. Information / Comments: pt arrived via stretcher to [facility] [id number] Report received from: Brittney Stevenson RN
[2024-06-26] MEDS: Furosemide 40 MG/4 ML VIAL IVP (18:24)
[2024-06-26] MEDS: Norethindrone 5 MG TAB 10 MG PO (19:41)
[2024-06-26] MEDS: Doxycycline Hyclate 100 MG CAP PO (19:41)
[2024-06-26] MEDS: Pantoprazole 40 MG VIAL IVP (20:09)
[2024-06-26] MEDS: Normal Saline Flush 10 ML SYR (20:10)
[2024-06-26] MEDS: Ipratropium 0.5 MG/2.5 ML UPD VIAL UPD (20:40)
[2024-06-26] MEDS: Levalbuterol 1.25 MG/3 ML UPD VIAL UPD (20:40)
[2024-06-27] VITALS (15 sets, daily range): BP systolic 109–124; BP diastolic 60–69; PULSE 76–95; RESP 5–29; TEMP 35.1–37.4; O2SAT 91–96
[2024-06-27] MEDS: Normal Saline Flush 10 ML SYR IVP ×4 (03:45→20:57)
[2024-06-27] MEDS: Levothyroxine 100 MCG TAB 200 MCG PO (06:04)
[2024-06-27 07:31] LABS: Abs Immature Grans 0.09 10^3/uL (0.0-0.06); Absolute Basophil Count 0.02 10^3/uL (0.0-0.2); Absolute Lymphocyte Count 1.11 10^3/uL (1.2-3.4); Basophils % 0.1 %; HCT 35.6 % (36.0-46.0); HGB 11.6 g/dL (11.2-15.7); Immature Grans % 0.6 %; Lymphocytes % 6.9 %; MCH 27.9 pg (27.0-33.0); MCHC 32.6 % (32.0-36.0); MCV 86 fL (80-95); MPV 10.9 fL (8.0-11.0); Monocytes % 4.2 %; Neutrophils % 88.2 %; Platelet Count 339 10^3/uL (130-400); RBC 4.16 10^6/uL (3.93-5.22); RDW 17.5 % (11.7-14.6); WBC 16.09 10^3/uL (4.4-10.8)
[2024-06-27 07:41] LABS: Absolute Monocyte Count 0.68 10^3/uL (0.1-0.8); Absolute Neutrophil Count 14.19 10^3/uL (1.2-6.7)
[2024-06-27 07:52] LABS: ALT 212 U/L (14-59); AST 80 U/L (15-37); Albumin 1.9 g/dL (3.4-5.0); Alkaline Phosphatase 68 U/L (46-116); Anion Gap 7.3 mmol/L (3-11); BUN 13 mg/dL (7-18); Bilirubin, Total 0.84 mg/dL (0.2-1.0); CO2 31.7 mmol/L (21.0-32.0); CREATININE 0.7 mg/dL (0.55-1.02); Calcium 8.1 mg/dL (8.5-10.1); Chloride 103 mmol/L (98-107); Estimated GFR 94.15 (mL/min/1.73m2); Glucose 123 mg/dL (74-106); Potassium 4.1 mmol/L (3.5-5.1); Sodium 142 mmol/L (136-145); Total Protein 6.8 g/dL (6.4-8.2)
[2024-06-27] MEDS: predniSONE 20 MG TAB 40 MG PO (08:33)
[2024-06-27] MEDS: Furosemide 40 MG/4 ML VIAL IVP ×2 (08:33→16:26)
[2024-06-27] MEDS: Ascorbic Acid 500 MG TAB 1000 MG PO (08:33)
[2024-06-27] MEDS: Sertraline 50 MG TAB PO (08:34)
[2024-06-27] MEDS: Doxycycline Hyclate 100 MG CAP PO ×2 (08:34→20:56)
[2024-06-27] MEDS: Potassium Chloride 20 MEQ TABCR PO (08:34)
[2024-06-27] MEDS: Norethindrone 5 MG TAB 10 MG PO ×2 (08:34→20:56)
[2024-06-27] MEDS: Pantoprazole 20 MG TABCR PO (08:34)
[2024-06-27] MEDS: Lactobacillus Acidophilus CAP 1 CAP PO (08:34)
[2024-06-27] MEDS: Ferrous Sulfate 325 MG TAB PO (08:37)
--- NOTE | 2024-06-27 09:01 | INITIAL_ITS ---
Date of service: 06/27/24 Time of Service: 09:01 Care Management Initial Assmt Initial Assessment Reason for Hospitalization: sepsis, ?UTI, COPD exacerbation Functional Status/Living Situation Patient Presentation: Radha was admitted yesterday afternoon. She had become increasingly SOB at home and noticed a hole in the tubing of her bipap. New tubing is scheduled to be delivered on 06/27. Radha was sleeping when CM first approached, but her RN was going in to see her, so CM followed. Radha was easily roused, but was really unable to speak. She was wearing her bipap, and did not want to remove it to speak. She did not appear to be struggling with her breathing, but her rate did seem elevated. CM let Radha know that they could meet tomorrow when she is feeling better. Town of Residence: [facility] Resides with: Other (lives with her boyfriend, Galo) Significant Other/Family: Local (3 children and 3 grandchildren, most of whom live locally. Sister in [facility], whom she sees often and speaks to every day.) Natural Supports: Family, Galo and her next door neighbor Employment Status: Disabled Instrumental Activities of Daily Living (ADLs): Independent Activities/Hobbies/SocialSupport: Radha really likes to cook. She uses her Instapot and her airfryer alot, as she is not able to stand. She likes to try new recipes, and loves having people over to eat. She loves caring for her granddaughter, Maria Luz. Medications Medication Management: No Issues/Barriers identified Physical Functioning/Mobility Assistive Device: motorized wheel chair Advance Directives Advance Directives: Do you have an Advance Directive: Y 04/11/24 07:49 AD On File at [facility]: Y 04/11/24 07:49 Date Asked 06/07/24 06/07/24 16:27 AD Date Reviewed 05/30/24 05/30/24 11:06 COLST On File at [facility] COLST Date Scanned Code Status Resuscitation Status Full Code Insurance Coverage/Financial Issues Insurance: AARP/UN.[facility] Mcr Replacement Medicaid of [place]? Financial Issues: denies Care Team Visit Care Team Role Provider Type Alphonso Murphy MD Primary Care Provider [facility] STAFF PHYSICIAN INESSA Galicia Emergency Provider PHYSICIANS MANAGER MAIL Brandan Hicks Admit Provider [facility] STAFF PHYSICIAN Attending Provider Discharge Potential Discharge Needs: PCP F/U Appt Anticipated Barriers to Discharge: None Identified Patient/Family Education Needs: Review discharge instructions, discuss Ask Me Three Transportation: Private vehicle Plan: Anticipate that Radha will be discharged home once medically stable. CM will discuss with Radha the resumption of services. Radha will f/u with her PCP and continue per her plan of care. She will transport home in a private vehicle. CM will continue to follow and update the plan as needed. PFSH All Active Problems (Updated 06/26/24 @ 19:01 by Zoila De La Garza APRN) Sepsis (Acute) CHF (congestive heart failure) (Chronic) Atrial fibrillation (Chronic) COPD (chronic obstructive pulmonary disease) (Chronic) Acute and chronic respiratory failure (Acute) Elevated white blood cell count (Acute) Abnormal liver enzymes (Acute) Chronic obstructive pulmonary disease with acute exacerbation (Acute) Exertional shortness of breath (Acute) UTI (urinary tract infection) (Acute) Heart failure with preserved ejection fraction (Acute) Wound dehiscence (Acute) Thickened endometrium (Acute) Postmenopausal bleeding (Acute) COPD (chronic obstructive pulmonary disease) (Acute) Laceration of dobson (Acute) GERD (gastroesophageal reflux disease) (Chronic) had negative barium esophagram in 11/2022. Anxiety (Chronic) Venous stasis dermatitis (Acute) Chronic headaches (Chronic) Recent Neurology consult for possible papilledema. Urinary incontinence (Chronic) On Detrol Recurrent UTI (Chronic) Right ventricular dysfunction (Chronic) Knee pain, bilateral (Chronic 07/23/14) s/p bilat TKR (left infected with mult surg and decreased mobility) Morbid obesity (Acute 04/05/13) Sensorineural hearing loss, bilateral (Chronic 08/29/13) Advance directive on file (Acute) Low back pain with sciatica (Chronic 05/03/14) CT at [facility] L34 spinal stenosis Varicose veins of lower extremity (Chronic) Depression (Chronic) Grief at loss of child (Acute) Chronic respiratory failure with hypoxia and hypercapnia (Chronic) home BiPap Status post total bilateral knee replacement (Acute) Sprain of scapholunate ligament (Acute 03/21/19) DAVID (obstructive sleep apnea) (Chronic) on BiPap Hyperglycemia (Acute) Mixed conductive and sensorineural hearing loss of both ears (Acute) Right carpal tunnel syndrome (Acute) Arthritis of right hand (Acute) Impingement of right ulnar nerve (Acute) Dermoid cyst of neck (Acute) Hypothyroidism (Chronic) Microcalcifications of the breast (Acute) Neuropathy of left hand (Acute) Neuropathy of right hand (Acute) Bilateral carpal tunnel syndrome (Acute) Medical History Abnormal urinalysis Lymphedema Community acquired pneumonia Pneumonia Hx pulmonary embolism (~2015) treated with lovenox x 3 months Surgical History Status post thyroidectomy History of fasciotomy History of Surgical Procedure a. Right and left toal knee replacements. b. Left knee has been repeatedly operated on with slava surgies, three replacements. Replacement of total knee joint Bilateral; left-became wqrngwgo-blicfhn-tfybytiv surgeries Fasciotomy, Foot (~1996) LEFT Family History Mother Diabetes Personal history of malignant neoplasm LUNG Father Personal history of malignant neoplasm BRAIN Grandfather No problems noted. Grandfather No problems noted. Grandmother No problems noted. Grandmother No problems noted. Social History Smoking/Tobacco Use Status: Former Tobacco Use tobacco type: cigarettes Quit Date: 01/21/21 Second Hand Exposure: Yes Smoking risk assessment performed?: Yes Alcohol Intake: never Drug use: Never Substance use type: does not use Counseling given: No Housing: apartment Communication Needs: Hard of Hearing and Corrective Lenses Pets and animals: Yes Pets and animals: cat(s) Sexually active: Yes Current gender identity: female What is your relationship status?: never How often do you talk on the phone with friends or family?: decline to answer How often do you get together with friends or relatives?: decline to answer How often do you attend zoroastrian or jainism services?: decline to answer Do you belong to any clubs or organized social groups?: no Panel score (0-1 are the most socially isolated patients): 0 Seatbelt use: never Do you feel safe at home: Yes Do you feel safe in your relationship?: Yes Readmission Within the Past 30 Days Yes or No: Yes Date of First Admission Date of 1st Admission: 05/30/24 Date of this Admission Date of Admission: 06/26/24 This admission was: Through ED Office Visit Since 1st Admission Have you seen your PCP in the office since discharge?: Yes Date of PCP Appointment: 06/12/24 Speicalist Appointments Have you seen any other specialist since your 1st Admission?: No I. Interview patient and/or Family Difficulty reaching your doctor or getting an office appt?: No Have you had trouble purchasing/ or taking medication?: No Have you had trouble with getting meals at home?: No Did you feel ready for discharge when you left the last time: Yes Were services received that you thought were set up on disch: Yes What services were received?: HH RN If the patient had a VNA ordered Did the patient have a VNA order?: Yes Did you call the VNA before you came?: No (had already been discharged) If the patient had home care service Call them to discuss the patient's admission: pt was discharged from on 06/11/24 ED visits How many ED visits in the past 12 months: 6 Assessment for Readmission Summary of readmission circumstances, based upon interviews: bipap tubing had a hole in it for 3 days, and this is what caused her exacerbation SDOH(Care Management) Screening Will the Patient Participate in the Screening?: Yes Do you worry about having a steady place to live?: no Problems where you live: no known problems In the past 12 months, have you had to go without electric, gas, oil or water in your home?: no Have you or anyone in your house had to go without enough food to eat?: no Has lack of transportation kept you from medical appointments or from doing things needed for daily living?: no Has anyone in your support network made you feel unsafe for any reason?: no Anticipated HH Services Anticipated HH Services at Discharge [facility] Needed, PT and RN.
--- NOTE | 2024-06-27 09:51 | PGE_ITS ---
Date of Service Date of service: 06/27/24 Time of Service: 09:51 Assessment and Plan Assessment and plan (1) Sepsis: Status: Acute Assessment and plan: On admission, sepsis criteria met:HR > 90, RR> 22 with WBC> 12 and probable urinary source Was started on and will continue Ceftriaxone (2) CHF (congestive heart failure): Status: Chronic Assessment and plan: Pulmonary congestion as per CXR report Transient atrial- fibrillation in the ED now in a sinus rhythm -was most likely related to fluid overload Discontinue telemetry Continue IV lasix 40 Mg IV twice daily BMP in AM (3) Acute and chronic respiratory failure: Status: Acute Assessment and plan: As above No further hypoxia Continue to titrate O2 as needed to maintain st 88-92% (4) Chronic obstructive pulmonary disease with acute exacerbation: Status: Acute Assessment and plan: On admission, the patient reported increased cough, sputum production and change in color Continue oral prednisone - IV methylprednisolone given on day 1 Was on As needed nebs with levalbuterol and ipratropium , today scheduled nebs added withalbuterol and ipratropium Will continue doxycycline (5) Postmenopausal bleeding: Status: Acute Assessment and plan: Will continue home medicine regimen (6) GERD (gastroesophageal reflux disease): Status: Chronic Assessment and plan: On home PPI One dose of IV PPI given on day one d/t high dose IV steroids (7) Abnormal urinalysis: Assessment and plan: Urine culture shows gram-negative rods Will continue ceftriaxone Previous UTI with ceftriaxone senstive E. Coli discussed with Dr. Hicks (8) UTI (urinary tract infection): Status: Acute Assessment and plan: As above Subjective Subjective Patient reports: tolerating liquids well, tolerating a regular diet, voiding w/o difficulty (Schmitt in place), flatus, no bowel movement, afebrile and other (Reported feeling tired, increased work of breathing); denies diarrhea, nausea or vomiting Exam Narrative Exam Narrative: Constitutional Morbidly obese patient in bed - speaks 5-6 word sentences HENMT: Facial structures with normal appearance Neuro:alert and oriented to self, person, place, time and situation. Nonfocal Resp: Scattered ronchiclearing somewhat w cough, diffused inspiratory and expiratory wheezing to bilat lung dubose with increased work of breathing during exam Cardio: Telemetry was sinus rhythm heart rate 80 this morning, regular rhythm, S1, S2, no murmur, bilateral radial and dorsalis pedis pulses are positive GI: Abdomen is large, not distended, soft and non tender, bowel sounds are present Extremities: Moves all 4 extremities Psych: RASS 0, congruent mood and normal affect. Objective Last Vital Signs Temp 36.8 C 06/27/24 07:28 Pulse 76 06/27/24 07:28 Resp 19 06/27/24 07:28 BP 121/66 06/27/24 07:28 Pulse Ox 95 06/27/24 07:28 Laboratory Results - last 24 hr 06/26/24 06/26/24 06/26/24 12:40 13:42 15:05 WBC 12.68 H RBC 4.75 Hgb 13.1 Hct 40.7 MCV 86 MCH 27.6 MCHC 32.2 RDW 17.4 H Plt Count 342 MPV 10.5 Immature Gran % 0.9 Neutrophils % 80.2 Lymphocytes % 8.0 Monocytes % 8.4 Eosinophils % 2.1 Basophils % 0.4 Nucleated RBC % 0.0 Absolute Neutrophils 10.17 H Absolute Lymphocytes 1.01 L Absolute Monocytes 1.07 H Absolute Eosinophils 0.27 Absolute Basophils 0.05 VBG pH 7.36 7.39 VBG pCO2 54 H 47 VBG pO2 47 53 VBG HCO3 30 H 28 VBG Total CO2 28 26 VBG O2 Saturation 82 88 VBG Base Excess 5 H 3 VBG Lactate 1.4 Sodium 139 Potassium 3.8 Chloride 102 Carbon Dioxide 32.1 H Anion Gap 4.9 BUN 10 Creatinine 0.7 Est GFR (CKD-EPI 2020) 94.15 Glucose 112 H Calcium 8.2 L Magnesium 2.1 Total Bilirubin 1.14 H AST 124 H ALT 299 H Alkaline Phosphatase 84 Troponin I 9 9 NT-Pro-B Natriuret Pep 471 H Total Protein 7.5 Albumin 2.1 L Procalcitonin 0.12 TSH 0.76 Urine Color Urine Clarity Urine pH Ur Specific [place] Urine Protein Urine Ketones Urine Blood Urine Nitrite Urine Bilirubin Urine Urobilinogen Ur Leukocyte Esterase Urine RBC Urine WBC Ur Epithelial Cells Urine Crystals Urine Bacteria Urine Mucus Urine Other Ur Culture Indicated? Urine Glucose COVID-19 Source SARS-CoV-2 (PCR) Influenza Type A (PCR) Influenza Type B (PCR) RSV (PCR) 11/12/24 11/12/24 11/12/24 15:09 15:32 16:51 WBC RBC Hgb Hct MCV MCH MCHC RDW Plt Count MPV Immature Gran % Neutrophils % Lymphocytes % Monocytes % Eosinophils % Basophils % Nucleated RBC % Absolute Neutrophils Absolute Lymphocytes Absolute Monocytes Absolute Eosinophils Absolute Basophils VBG pH VBG pCO2 VBG pO2 VBG HCO3 VBG Total CO2 VBG O2 Saturation VBG Base Excess VBG Lactate Sodium Potassium Chloride Carbon Dioxide Anion Gap BUN Creatinine Est GFR (CKD-EPI 2020) Glucose Calcium Magnesium Total Bilirubin AST ALT Alkaline Phosphatase Troponin I Cancelled NT-Pro-B Natriuret Pep Total Protein Albumin Procalcitonin TSH Urine Color Yellow Urine Clarity Cloudy Urine pH 6.0 Ur Specific [place] 1.025 Urine Protein >=300 H Urine Ketones Trace H Urine Blood Large H Urine Nitrite Positive H Urine Bilirubin Small H Urine Urobilinogen >=8.0 H Ur Leukocyte Esterase Negative Urine RBC 20-50 H Urine WBC 10-20 H Ur Epithelial Cells Few Urine Crystals Not Applicable Urine Bacteria Packed Urine Mucus Not Applicable Urine Other Few Transitional Ur Culture Indicated? Yes Urine Glucose Negative COVID-19 Source Nasopharynx SARS-CoV-2 (PCR) Negative Influenza Type A (PCR) Negative Influenza Type B (PCR) Negative RSV (PCR) Negative 06/27/24 06:53 WBC 16.09 H RBC 4.16 Hgb 11.6 Hct 35.6 L MCV 86 MCH 27.9 MCHC 32.6 RDW 17.5 H Plt Count 339 MPV 10.9 Immature Gran % 0.6 Neutrophils % 88.2 Lymphocytes % 6.9 Monocytes % 4.2 Eosinophils % 0.0 Basophils % 0.1 Nucleated RBC % 0.0 Absolute Neutrophils 14.19 H Absolute Lymphocytes 1.11 L Absolute Monocytes 0.68 Absolute Eosinophils 0.00 Absolute Basophils 0.02 VBG pH VBG pCO2 VBG pO2 VBG HCO3 VBG Total CO2 VBG O2 Saturation VBG Base Excess VBG Lactate Sodium 142 Potassium 4.1 Chloride 103 Carbon Dioxide 31.7 Anion Gap 7.3 BUN 13 Creatinine 0.7 Est GFR (CKD-EPI 2020) 94.15 Glucose 123 H Calcium 8.1 L Magnesium Total Bilirubin 0.84 AST 80 H ALT 212 H Alkaline Phosphatase 68 Troponin I NT-Pro-B Natriuret Pep Total Protein 6.8 Albumin 1.9 L Procalcitonin TSH Urine Color Urine Clarity Urine pH Ur Specific [place] Urine Protein Urine Ketones Urine Blood Urine Nitrite Urine Bilirubin Urine Urobilinogen Ur Leukocyte Esterase Urine RBC Urine WBC Ur Epithelial Cells Urine Crystals Urine Bacteria Urine Mucus Urine Other Ur Culture Indicated? Urine Glucose COVID-19 Source SARS-CoV-2 (PCR) Influenza Type A (PCR) Influenza Type B (PCR) RSV (PCR) Time Spent with Patient Time Spent with Patient: >50 minutes Time was spent: preparing to see the patient(eg.review tests), obtaining and/or reviewing separately otained hiistory, ordering medications,tests, procedures, referring, communicating with other health child care center administrator, indepentently int erpreting results, counseling the patient and care coordination
[2024-06-27] MEDS: cefTRIAXone 2 GM/50 ML BAG IVPB (10:12)
--- NOTE | 2024-06-27 11:39 | PHA.REVIEW2 ---
Pharmacy Admission Review Admission Clinical Review Admission Pharmacy Review: Sepsis (Acute) Acute and chronic respiratory failure (Acute) Chronic obstructive pulmonary disease with acute exacerbation (Acute) Postmenopausal bleeding (Acute) hydrocodone Allergy (Severe, Verified 06/12/24 15:01) ITCHING morphine Allergy (Mild, Verified 06/12/24 15:01) PRURITIS oxycodone Allergy (Mild, Verified 06/12/24 15:01) ITCHING Resuscitation Status Full Code Height 5 ft 3 in Weight 176.901 kg Comments Comments/Follow Ups: Follow up on DVT prophylaxis if order is not put in Pharmacy Admission Review Renal Dosing Renal Dosing: BUN 13 mg/dL (7-18) 06/27/24 06:53 Creatinine 0.7 mg/dL (0.55-1.02) 06/27/24 06:53 Medications needing adjustments: Reviewed (CrCl 86.87 mL/min) List of meds needing interventions: Current medications are okay Anticoagulation Anticoagulation: Hgb 11.6 g/dL (11.2-15.7) 06/27/24 06:53 Hct 35.6 % (36.0-46.0) L 06/27/24 06:53 Plt Count 339 10^3/uL (130-400) 06/27/24 06:53 Creatinine 0.7 mg/dL (0.55-1.02) 06/27/24 06:53 DVT Prophylaxis: Intervened (Currently no orders, spoke with provider during morning meeting and they are looking into it) Relevant Labs Relevant Labs: Sodium 142 mmol/L (136-145) 06/27/24 06:53 Potassium 4.1 mmol/L (3.5-5.1) 06/27/24 06:53 Chloride 103 mmol/L (98-107) 06/27/24 06:53 Magnesium 2.1 mg/dL (1.8-2.4) 06/26/24 15:05 Electrolytes, C-Reactive P, ESR: Reviewed (AST/ALT decreased from 124/299 to 80/212) Cardiac Review Cardiac Review: Troponin I Cancelled 06/26/24 15:32 NT-Pro-B Natriuret Pep 471 pg/mL (<300) H 06/26/24 12:40 BP, HR, EF%: Reviewed (HR and BP WNL) List meds needing interventions: Has order for furosemide 40mg IVP BID QTc Review QTc: Reviewed (470 from 06/26/24) IV to PO Switch IV Medications: Reviewed (ceftriaxone and furosemide ) Home Meds Home Med List reviewed: Intervened Relevent Home Meds Not ordered & why?: albuterol (PRN), alclometasone cream (PRN), betamethasone lotion (PRN), ketoconazole cream (PRN), nystatin powder and Zepbound Spoke with provider during morning meeting regarding various topicals. Provider is aware and will put in orders if needed. Per nursing patient looks good as of right now. Current Meds Current Medication Order Review: Reviewed Comments: Added IV admission order set Changed timing of levothyroxine from 0830 to 0600 per pharmacy protocol Changed timing of pantoprazole from 0830 to 0730 per pharmacy protocol Pharmacy Antibiotic Review Relevant Labs: Relevant Labs 06/26/24 12:40 Procalcitonin 0.12 WBC 16.09 10^3/uL (4.4-10.8) H 06/27/24 06:53 Procalcitonin 0.12 ng/mL 06/26/24 12:40 Temperature 35.1 C Temperature 36.8 C Temperature 36.1 C Pharmacy Antibiotic Activity: C/S review and Reviewed, no change Comments: Patient is on ceftriaxone and doxycycline PO, day 1, for sepsis and possible UTI. WBC increased from 12.68 and blood/urine cultures pending. Comments Comments/Follow Ups: Follow up on DVT prophylaxis if order is not put in
[2024-06-27] MEDS: Albuterol/Ipratropium 3 ML UPD VIAL UPD ×2 (16:27→20:26)
[2024-06-28] VITALS (12 sets, daily range): BP systolic 105–139; BP diastolic 60–91; PULSE 76–96; RESP 5–26; TEMP 36–37.4; O2SAT 91–96
[2024-06-28] MEDS: Levothyroxine 200 MCG TAB PO (05:10)
[2024-06-28] MEDS: Pantoprazole 20 MG TABCR PO (08:30)
[2024-06-28] MEDS: Ascorbic Acid 500 MG TAB 1000 MG PO (08:45)
[2024-06-28] MEDS: Norethindrone 5 MG TAB 10 MG PO ×2 (08:45→20:04)
[2024-06-28] MEDS: Doxycycline Hyclate 100 MG CAP PO ×2 (08:45→20:04)
[2024-06-28] MEDS: Sertraline 50 MG TAB PO (08:45)
[2024-06-28] MEDS: predniSONE 20 MG TAB 40 MG PO (08:45)
[2024-06-28] MEDS: Potassium Chloride 20 MEQ TABCR PO (08:45)
[2024-06-28] MEDS: Lactobacillus Acidophilus CAP 1 CAP PO (08:45)
[2024-06-28] MEDS: Furosemide 40 MG/4 ML VIAL IVP (08:45)
[2024-06-28 08:46] LABS: ALT 217 U/L (14-59); AST 118 U/L (15-37); Albumin 1.9 g/dL (3.4-5.0); Alkaline Phosphatase 73 U/L (46-116); Anion Gap 8.3 mmol/L (3-11); BUN 15 mg/dL (7-18); Bilirubin, Total 0.76 mg/dL (0.2-1.0); CO2 32.7 mmol/L (21.0-32.0); CREATININE 0.7 mg/dL (0.55-1.02); Calcium 7.8 mg/dL (8.5-10.1); Chloride 102 mmol/L (98-107); Estimated GFR 94.15 (mL/min/1.73m2); Glucose 87 mg/dL (74-106); Potassium 4.1 mmol/L (3.5-5.1); Sodium 143 mmol/L (136-145); Total Protein 6.8 g/dL (6.4-8.2)
--- NOTE | 2024-06-28 09:13 | PGE_ITS ---
Date of Service Date of service: 06/28/24 Time of Service: 09:14 Assessment and Plan Assessment and plan (1) Sepsis: Status: Acute Assessment and plan: On admission, sepsis criteria met:HR > 90, RR> 22 with WBC> 12 and source thought to be urinary confirmed as of 06/28- as MDRO E. Coli UTI Continnue weight based dosing of IV Ceftriaxone blood Cx negative (2) UTI (urinary tract infection): Status: Acute Assessment and plan: MDRO E. Coli- appears different from previous MDRO E.Coli d/t differnt resistance to antibiotics - but again ceftriaxone sensitive Will continue ceftriaxone Change indwelling urinary cath Qualifiers: Urinary tract infection type: acute cystitis (3) CHF (congestive heart failure): Status: Chronic Assessment and plan: Pulmonary congestion as per CXR report Transient atrial- fibrillation in the ED now in a sinus rhythm -was most likely related to fluid overload Last limited echo on 06/04/24 showed:Left ventricle appears grossly normal in size and systolic function. Segmental wall motion cannot be accurately assessed d/t suboptimal study. On 04/11/24 LVEF was 55% F/u with cardiology outpatient No further arrhythmia symptoms Continue daily weight-Please get an accurate weight as pt in at 176Kg and now at 185 kg s/p 4 liter negative fluid balance Continue increased dose of IV lasix 60 mg IV twice daily Adding one dose of metolazone then trial of daily dose Considering transition to oral 80 mg PO BID on discharge VS lower dosing of oral torsemide BMP in AM (4) Acute and chronic respiratory failure: Status: Acute Assessment and plan: As above No further hypoxia Continue to titrate O2 as needed to maintain st 88-92% (5) Chronic obstructive pulmonary disease with acute exacerbation: Status: Acute Assessment and plan: The patient reported increased cough, sputum production and change in color 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 Continue oral prednisone - IV methylprednisolone given on day 1 Was on As needed nebs with levalbuterol and ipratropium , scheduled nebs added with albuterol and ipratropium Will continue doxycycline Broken NIV circuit at home to be replaced (6) Postmenopausal bleeding: Status: Acute Assessment and plan: Will continue home medicine regimen (7) GERD (gastroesophageal reflux disease): Status: Chronic Assessment and plan: On home PPI One dose of IV PPI given initially d/t high dose IV methylprednisolone (8) Contraindication to deep vein thrombosis (DVT) prophylaxis: Status: Acute Assessment and plan: Uterine bleeding on pharmacolgical therapy Will continue TEDs/ SCD's (9) Discharge planning issues: Status: Acute Assessment and plan: D/c home when medically ready a nd pending NVI repair - nursing- PT- [employer] resumption- new OT Discussed with Dr. Cesar Subjective Subjective Patient reports: feels better, tolerating liquids well, tolerating a regular diet, bowel movement and afebrile; denies diarrhea, blood in stool, nausea or vomiting Exam Narrative Exam Narrative: Constitutional Morbidly obese patient in bed - speaks 5-6 word sentences HENMT: Facial structures with normal appearance Neuro:alert and oriented to self, person, place, time and situation. Nonfocal Resp: diffused expiratory wheezing to bilat lung dubose R> L, laryngeal wheezing-airflow positive in lung bases Cardio:regular rhythm, S1, S2, no murmur, bilateral radial and dorsalis pedis pulses are positive GI: Abdomen is large, not distended, soft and non tender, bowel sounds are present Extremities: Moves all 4 extremities Psych: RASS 0, congruent mood and normal affect. Objective Last Vital Signs Temp 36.6 C 06/28/24 03:17 Pulse 87 06/28/24 03:17 Resp 20 06/28/24 03:17 BP 105/60 06/28/24 03:17 Pulse Ox 96 06/28/24 03:17 Time Spent with Patient Time Spent with Patient: >50 minutes Time was spent: preparing to see the patient(eg.review tests), obtaining and/or reviewing separately otained hiistory, ordering medications,tests, procedures, referring, communicating with other health insurance healthcare consultant, indepentently interpreting results, counseling the patient and care coordination
[2024-06-28] MEDS: Normal Saline Flush 10 ML SYR IVP ×3 (09:18→20:03)
[2024-06-28 09:21] LABS: Absolute Basophil Count 0.03 10^3/uL (0.0-0.2); Basophils % 0.2 %; Eosinophils % 0.1 %; HGB 11.6 g/dL (11.2-15.7); Immature Grans % 0.7 %; Lymphocytes % 11.1 %; MCH 27.9 pg (27.0-33.0); MCHC 32.2 % (32.0-36.0); MCV 87 fL (80-95); MPV 10.7 fL (8.0-11.0); Monocytes % 10.2 %; Neutrophils % 77.7 %; Platelet Count 396 10^3/uL (130-400); RBC 4.16 10^6/uL (3.93-5.22); RDW 17.7 % (11.7-14.6); RDW-SD 55.7 fL; WBC 14.64 10^3/uL (4.4-10.8)
[2024-06-28] MEDS: Albuterol/Ipratropium 3 ML UPD VIAL UPD ×4 (09:22→19:22)
--- NOTE | 2024-06-28 09:32 | CMPROGNOTE_ITS ---
Date of service: 06/28/24 Time of Service: 09:32 Care Management Progress Note Progress Note Text Progress Note Text: Radha was sitting up in her wheelchair when CM met with her today. She looked much better than yesterday, on her baseline 3L of O2, and stated she is feeling better, although still quite congested and wheezy. She was noted to be breathing rapidly, but was able to speak in full sentences. She was very pleasant. She stated that she is hoping to lose some weight, was prescribed Zepbound, but it is too expensive and her PCP office is working on trying to find her some help with that, or another medication to help. Radha also just bought on of those exercise machines that move automatically in a bicycle pedal pattern. She is hoping to better her circulation so she can reduce the edema in her legs. Discharge Potential Discharge Needs: PCP F/U Appt Anticipated Barriers to Discharge: None Identified Patient/Family Education Needs: Review discharge instructions, discuss Ask Me Three Transportation: Private vehicle Plan: Anticipate that Radha will be discharged home once medically stable. She will have a resumption of RN/PT/LPN OR MEDICAL ASSISTANT and new OT. Radha will f/u with her PCP and continue per her plan of care. She will transport home in a private vehicle. CM will continue to follow and update the plan as needed. SDOH(Care Management) Screening Will the Patient Participate in the Screening?: Yes Do you worry about having a steady place to live?: no Problems where you live: no known problems In the past 12 months, have you had to go without electric, gas, oil or water in your home?: no Have you or anyone in your house had to go without enough food to eat?: no Has lack of transportation kept you from medical appointments or from doing things needed for daily living?: no Has anyone in your support network made you feel unsafe for any reason?: no Anticipated HH Services Anticipated HH Services at Discharge [facility] Resumption (PT, RN, LPN OR MEDICAL ASSISTANT - verified with HH on 06/28/24), OT (new).
--- NOTE | 2024-06-28 10:32 | IN_ITS ---
PT Notes Visit Reasons: CHF exacerbation, atrial fibrillation Inpatient Physical Therapy Evaluation Date: 06/28/2024 Referring Doctor: Zoila De La Garza PT Orders: PT CONSULT: Safety consult for discharge Precautions: oxygen to maintain sats 88-92% ( currently 3L/Min via NC), schultz , BiPAP Patient Profile/Admitting Diagnosis: Pt is 69 yo oxygen dependent female whoo presented to ED on 06/26/2024 with increased SOB. Pt work up in ED included CxR, EKG and labs. Pt diagnosed with Sepsis, CHF exacerbation per CxR, Afib (now resolved), Acute on Chronic Respiratory failure, COPD and UTI. Pt treated with IV diuretics, Antibiotic, steroids and BiPAP. Pt transferred to med surg unit fo r further medical management. PT Consulted on 06/28/24 in anticipation of discharge to home. PMHX: Sepsis (Acute) CHF (congestive heart failure) (Chronic) Atrial fibrillation (Chronic) COPD (chronic obstructive pulmonary disease) (Chronic) Acute and chronic respiratory failure (Acute) Elevated white blood cell count (Acute) Abnormal liver enzymes (Acute) Chronic obstructive pulmonary disease with acute exacerbation (Acute) Exertional shortness of breath (Acute) UTI (urinary tract infection) (Acute) Heart failure with preserved ejection fraction (Acute) Wound dehiscence (Acute) Thickened endometrium (Acute) Postmenopausal bleeding (Acute) COPD (chronic obstructive pulmonary disease) (Acute) Laceration of dobson (Acute) GERD (gastroesophageal reflux disease) (Chronic) had negative barium esophagram in 11/2022.Anxiety (Chronic) Venous stasis dermatitis (Acute) Chronic headaches (Chronic) Recent Neurology consult for possible papilledema.Urinary incontinence (Chronic) On DetrolRecurrent UTI (Chronic) Right ventricular dysfunction (Chronic) Knee pain, bilateral (Chronic 07/23/14) s/p bilat TKR (left infected with mult surg and decreased mobility) Morbid obesity (Acute 04/05/13) Sensorineural hearing loss, bilateral (Chronic 08/29/13) Advance directive on file (Acute) Low back pain with sciatica (Chronic 05/03/14) CT at [facility] [place] L34 spinal stenosis Varicose veins of lower extremity (Chronic) Depression (Chronic) Grief at loss of child (Acute) Chronic respiratory failure with hypoxia and hypercapnia (Chronic) home BiPapStatus post total bilateral knee replacement (Acute) Sprain of scapholunate ligament (Acute 03/21/19) DAVID (obstructive sleep apnea) (Chronic) on BiPapHyperglycemia (Acute) Mixed conductive and sensorineural hearing loss of both ears (Acute) Right carpal tunnel syndrome (Acute) Arthritis of right hand (Acute) Impingement of right ulnar nerve (Acute) Dermoid cyst of neck (Acute) Hypothyroidism (Chronic) Microcalcifications of the breast (Acute) Neuropathy of left hand (Acute) Neuropathy of right hand (Acute) Bilateral carpal tunnel syndrome (Acute) Medical History Abnormal urinalysis Lymphedema Community acquired pneumonia Pneumonia Hx pulmonary embolism (~2015) treated with lovenox x 3 months Surgical History Status post thyroidectomy History of fasciotomy History of Surgical Procedure a. Right and left toal knee replacements. b. Left knee has been repeatedly operated on with slava surgies, three replacements.Replacement of total knee joint Bilateral; left-became rdkicsdg-zlfbliq-liscemgo surgeriesFasciotomy, Foot (~1996) LEFT Social History/Home Situation: Lives with her significant other ( whom works) in [facility] with ramp to enter. She is independent with ADL, iADLs, cooking utilizing air fryer and instapot, she takes [facility] for transportation or she will just go in her motorized chair to the store or appointments. Equipment Owned/DME: motorized wheelchair, commode, BiPAP, Oxygen, bed with rails Subjective: Pt reports she is feeling better today then she has the past few days. She states this is the first time she was OOB since she got to the emergency room. She reports she has a good set up at home like a triangle she can go from her bed to the wheelchair or the commode on either side. There is no where for me to fall I would land on bed, commode or the wheelchair. Pt reports she wishes she could keep the catheter as she is frequently incontinent at home and has to do many loads of laundry d/t the incontinence. Pt also reports that her BiPAP mask is broken She has ordered replacement mask which should be at her home by now. Objective: General Observation: pt presented seated in her motorized chair with oxygen via nasal cannula and schultz catheter in place. Pt noted to be dyspneic with vocalizations, significant lymphedema Mental Status: A+ O x 4, Pain: Left knee 6/10 with WBing since infection in the left knee Vital Signs: monitored by nursing, 0xygen saturation 90 % on 3 L/Min with activity. RR 21 ROM: BLE supine in resting position are abducted and ER with knee flexion Right Upper Extremity: shoulder flexion and abduction 100 degrees, elbow wrist and hand WNL Left Upper Extremity: shoulder abduction and flexion 95 degrees, elbow and wrist and hand WNL Right Lower Extremity: WFL except hip extension lacking 8 degrees , limited hamstring length, DF to neutral Left Lower Extremity: hip lacking 10 degrees extension, knee 85 degrees flexion, DF to neutral. Strength: Right Upper Extremity: >/= to 3/5 no MMT d/t respiratory status Left Upper Extremity: >/= to 3/5 no MMT d/t respiratory status Right Lower Extremity: Hip flexion: >/= to 3/5; hip abduction: 3/5; hip extension: 3- /5; knee extension: 3 /5; knee flexion: 2+ /5 ankle DF: >/= to 3 /5 ; ankle PF: >/= to 3 /5 Left Lower Extremity: hip flexion 3-/5; hip abduction 3-/5; hip extension 3-/5; knee extension 2+/5, ankle 3/5 Sensation: intact BUE , BLE diminished to light touch significant lymphedema present Bed Mobility/Transfers: supine with HOB>30degrees to sit : SBA Sit to supine with HOB >30 degrees: min A for RLE bed to chair: 3/4 stand pivot toward right SBA pivoting on LLE utilizing armrest for support as well as bed Gait: NA pt. is non-ambulatory at baseline utilizes motorized wheelchair for locomotion. She is able to side step for transfers only Wheelchair Management: Independent with motorized chair including appropriate speed and turning to avoid obstacles Balance: [] Static Sitting:Good Dynamic Sitting: Fair+ Static Standing: Fair Dynamic Standing: poor + Special Tests: Mobility Limitations Standardized Measure [facility] AM-PAC 6 clicks Basic Mobility Inpatient Short Form: Raw Score: 13 CMS Score: 64.91% Informed Consent/Education: Patient instructed in purpose of PT consult and plan of care. Assessment: Patient is a 69 year old female referred to physical therapy services with the diagnosis of Sepsis, CHF exacerbation, COPD, UTI. Pt requires HOB elevated >30 degrees d/t dyspnea when supine.Pt is very aware and demonstrates safe technique that works for her to allow for independence within her environment Patient presents with clinical signs and symptoms consistent with admitting diagnosis, as demonstrated by the following impairment level findings: 1. impaired strength BLE major muscle groups 2. impaired functional activity tolerance 3. Dyspnea on exertion 4. impaired balance sitting and standing 5. pain in left knee Impairments are contributing to the following functional limitations: 1. AMPAC score. 2. decline in bed mobility 3. decline in transfer ability 4. increase time to complete ADL/ functional tasks Patient is assessed as a Moderate 13958 complexity based on the following: History: Pt is 69 yo female with complex past medical history as stated above who requires supplemental oxygen and schultz catheter at this time. Examination: Pt demonstrates impairments in strength, ROM, balance and mobilitylevel with underlying impairments and functional limitations as outlined above. Presentation: evolving Decision Making: moderate Goals: Goals X1 week 1. Supine-Sit Independent with rails 2. Sit-Supine independent with rails 3. Sit-Stand independent 4. Stand-Sit independent 5. Bed-Chair independent pivot 6. Chair-Bed independent pivot Plan of Care/Treatment Plan: 1-2x/day, 7 days/week x 1 week. Plan of care has been reviewed with the SHELLAC POLISHER providing the service under Physical Therapy direction. Initiate Physical Therapy intervention for strengthening, bed mobility, transfers, balance training, use of assistive device. DISCHARGE RECOMMENDATIONS: [] [] Home with no services [] X] Home with services PT [] Home with outpatient PT [] [] SNF for continued rehabilitation [] [] Snf Care [] [] SNF versus LTC based on ability to participate and progress [] TREATMENT CODE/TIME: 78452 x 20 mins 1 unit, 54539 13 mins for 1 unit / [id number] Cathy Galeas PT Please sign an return this page within 30 days if you agree with the above POC. Thank you! Physician Signature Date [facility]
[2024-06-28 10:51] LABS: Absolute Eosinophil Count 0.01 10^3/uL (0.0-0.7); Absolute Lymphocyte Count 1.63 10^3/uL (1.2-3.4); Absolute Monocyte Count 1.49 10^3/uL (0.1-0.8); Absolute Neutrophil Count 11.38 10^3/uL (1.2-6.7)
[2024-06-28] MEDS: Polyethylene Glycol 3350 17 GM PACKET PO (11:16)
[2024-06-28] MEDS: cefTRIAXone 2 GM/50 ML BAG IVPB (11:16)
[2024-06-28] MEDS: Furosemide 20 MG/2 ML VIAL 40 MG IVP (12:18)
--- NOTE | 2024-06-28 13:19 | PT.INTREAT ---
PT Notes Visit Reasons: CHF exacerbation, atrial fibrillation Inpatient Physical Therapy Treatment Note [facility] Date: 06/28/2024 PRECAUTIONS:oxygen to keep sats 88-92%9 currently 3L/Min, schultz, BiPAP at night, IV access SUBJECTIVE: Pt requested to use commode for BM. She reports the doctors told her she still has fluid around her heart and lungs. She stated she was going to get more Lasix to get rid of the fluid. OBJECTIVE: pt approached while in chair agreeable to participate ? PAIN: 5-6 left knee VITALS: ?monitored via telemetry Therapeutic Activities (49463x0): Direct one-on-one instruction in dynamic activities to improve functional performance. ?? Provided skilled cues and instruction on performance and technique throughout. ?perform pivot transfer x 2 w/c to /from commode with SBA pt utilizes armrest of chair and commode as she pivots on her RLE. When able she rests her Left foot on the platform of her w/c for aided stability. pt tolerated stand x 3 mins for hygiene with BUE support and SBA. ASSESSMENT:? Pt demonstrates ability to perform her pivot transfer on RLE, she is unable to tolerate WB on LLE . She can use her LLE for balance only d/t pain and failed L TKA. component per Radha. Pt with dyspnea post transfers and standing static for hygiene. Pt can be self limiting as she is set in her ways and limits what she is willing to participate in. PLAN:Pt would benefit from skilled PT 1-2 times per day for global strengthening, transfers, ambulation, pain management and balance facilitation TREATMENT CODE/TIME: 41394 x 18 mins for 1 unit [id number] DISCHARGE RECOMMENDATION: Home with PT
--- NOTE | 2024-06-28 14:42 | NUR.NOTE ---
Addendum entered by Althea Quigley 06/28/24 18:14: Schultz catheter changed . Pt refused SCDs. Original Note: Discontinue of schultz ordered this morning. Pt prefers to keep schultz in while getting IV Lasix. Provider aware. Nursing Note:
--- NOTE | 2024-06-28 16:38 | CHAPLAIN ---
Radha and I know each from outside the hospital, her previous admissions, and when her son, Lucas, was hospitalized with chronic health issues. 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 Today Radha said she is feeling better, and may go home tomorrow. She's been doing games on a tablet to pass the time. One family member has visited, and she's in touch with others by phone. Radha lives on [address] and gets around on her electric wheelchair.
[2024-06-28] MEDS: Furosemide 40 MG/4 ML VIAL 60 MG IVP (16:49)
[2024-06-28] MEDS: metOLazone 2.5 MG TAB 5 MG PO (18:00)
[2024-06-29] VITALS (19 sets, daily range): BP systolic 105–124; BP diastolic 57–73; PULSE 72–98; RESP 2–28; TEMP 36.6–37; O2SAT 91–97
[2024-06-29] MEDS: Levothyroxine 200 MCG TAB PO (06:09)
[2024-06-29 07:03] LABS: Abs Immature Grans 0.08 10^3/uL (0.0-0.06); Absolute Eosinophil Count 0.14 10^3/uL (0.0-0.7); Absolute Lymphocyte Count 2.19 10^3/uL (1.2-3.4); Absolute Monocyte Count 1.11 10^3/uL (0.1-0.8); Basophils % 0.2 %; Eosinophils % 1.1 %; HCT 36.2 % (36.0-46.0); HGB 11.6 g/dL (11.2-15.7); Immature Grans % 0.6 %; Lymphocytes % 17.6 %; MCH 27.8 pg (27.0-33.0); MCV 87 fL (80-95); MPV 10.7 fL (8.0-11.0); Monocytes % 8.9 %; Neutrophils % 71.6 %; Platelet Count 433 10^3/uL (130-400); RBC 4.18 10^6/uL (3.93-5.22); RDW 17.4 % (11.7-14.6); RDW-SD 55.5 fL; WBC 12.44 10^3/uL (4.4-10.8)
[2024-06-29 07:05] LABS: Absolute Basophil Count 0.02 10^3/uL (0.0-0.2); Absolute Neutrophil Count 8.91 10^3/uL (1.2-6.7)
[2024-06-29 07:21] LABS: ALT 211 U/L (14-59); AST 128 U/L (15-37); Albumin 1.9 g/dL (3.4-5.0); Alkaline Phosphatase 66 U/L (46-116); Anion Gap 2.8 mmol/L (3-11); BUN 14 mg/dL (7-18); CO2 38.2 mmol/L (21.0-32.0); CREATININE 0.7 mg/dL (0.55-1.02); Chloride 99 mmol/L (98-107); Estimated GFR 94.15 (mL/min/1.73m2); Glucose 91 mg/dL (74-106); Potassium 3.8 mmol/L (3.5-5.1); Sodium 140 mmol/L (136-145); Total Protein 6.7 g/dL (6.4-8.2)
[2024-06-29 07:30] LABS: Calcium 7.8 mg/dL (8.5-10.1)
[2024-06-29] MEDS: Albuterol/Ipratropium 3 ML UPD VIAL UPD ×4 (07:41→19:27)
[2024-06-29] MEDS: Furosemide 40 MG/4 ML VIAL 60 MG IVP ×2 (08:54→15:26)
[2024-06-29] MEDS: metOLazone 2.5 MG TAB 5 MG PO (08:55)
[2024-06-29] MEDS: Lactobacillus Acidophilus CAP 1 CAP PO (08:55)
[2024-06-29] MEDS: metOLazone 2.5 MG TAB PO (08:55)
[2024-06-29] MEDS: predniSONE 20 MG TAB 40 MG PO (08:55)
[2024-06-29] MEDS: Norethindrone 5 MG TAB 10 MG PO ×2 (08:55→20:10)
[2024-06-29] MEDS: Doxycycline Hyclate 100 MG CAP PO ×2 (08:55→20:10)
[2024-06-29] MEDS: Potassium Chloride 20 MEQ TABCR PO (08:56)
[2024-06-29] MEDS: Ascorbic Acid 500 MG TAB 1000 MG PO (08:56)
[2024-06-29] MEDS: Sertraline 50 MG TAB PO (08:56)
[2024-06-29] MEDS: Docusate Sodium 100 MG CAP PO (08:56)
[2024-06-29] MEDS: Pantoprazole 20 MG TABCR PO (08:56)
--- NOTE | 2024-06-29 09:39 | CMPROGNOTE_ITS ---
Date of service: 06/29/24 Time of Service: 09:39 Care Management Progress Note Progress Note Text Progress Note Text: Radha continues to be closely monitored and treated for sepsis and UTI. She was sitting in her wheelchair sleeping each time CM attempted to meet with her and is difficult to wake up. No changes to D/C plan; discharge home with resumption of H RN/PT/MOLD STAMPER AND REPAIRER, add OT. Transportation is dependent on availability at the time of discharge; private vehicle vs. [facility] shuttle vs [facility] w/c van. Discharge Potential Discharge Needs: PCP F/U Appt Anticipated Barriers to Discharge: None Identified Patient/Family Education Needs: Review discharge instructions, discuss Ask Me Three Transportation: Private vehicle Plan: Anticipate that Radha will be discharged home once medically stable. She will have a resumption of RN/PT/MOLD STAMPER AND REPAIRER and new OT. Radha will f/u with her PCP and continue per her plan of care. She will transport home in a private vehicle. CM will continue to follow and update the plan as needed. SDOH(Care Management) Screening Will the Patient Participate in the Screening?: Yes Do you worry about having a steady place to live?: no Problems where you live: no known problems In the past 12 months, have you had to go without electric, gas, oil or water in your home?: no Have you or anyone in your house had to go without enough food to eat?: no Has lack of transportation kept you from medical appointments or from doing things needed for daily living?: no Has anyone in your support network made you feel unsafe for any reason?: no
--- NOTE | 2024-06-29 09:46 | W.PM.PROGNOT ---
Date of Service Date of service: 06/29/24 Time of Service: 09:46 Assessment and Plan Assessment and plan (1) Sepsis: Status: Acute Assessment and plan: Sepsis criteria met:HR > 90, RR> 22 with WBC> 12 and source: urinary confirmed as of 06/28- as MDRO E. Coli UTI Continue weight based dosing of IV Ceftriaxone blood Cx negative x 72 hours (2) UTI (urinary tract infection): Status: Acute Assessment and plan: MDRO E. Coli- appears different from previous MDRO E.Coli d/t differnt resistance to antibiotics - but again ceftriaxone sensitive Will continue ceftriaxone transition to oral cefpodoxime or levaquin if not ESBL Indwelling urinary cath changed on 06/28 - D/C on discharge - seen in urology BROTH SETTER- no recommendation for chronic schultz Qualifiers: Urinary tract infection type: acute cystitis (3) CHF (congestive heart failure): Status: Chronic Assessment and plan: Confirmed pulmonary congestion as per CXR report Transient atrial- fibrillation in the ED now in a sinus rhythm -was most likely related to fluid overload Last limited echo on 06/04/24 showed:Left ventricle appears grossly normal in size and systolic function. Segmental wall motion cannot be accurately assessed d/t suboptimal study. On 04/11/24 LVEF was 55% F/u with cardiology outpatient No further arrhythmia symptoms Continue daily weight-Please get an accurate weight as pt in at 185 Kg and now at 185.5 kg s/p > 4 liter negative fluid balance Continue increased dose of IV lasix 60 mg IV twice daily Metolazone oral Transition to oral lasix w or w/o metolazone on discharge VS lower dosing of oral torsemide BMP in AM (4) Acute and chronic respiratory failure: Status: Acute Assessment and plan: As above No further hypoxia on baseline O2 (5) Chronic obstructive pulmonary disease with acute exacerbation: Status: Acute Assessment and plan: The patient reported increased cough, sputum production and change in color BROTH SETTER Continue oral prednisone for a total of 5 days - IV methylprednisolone given on day 1 On As needed nebs with levalbuterol and ipratropium , Continue scheduled nebs Will continue doxycycline for 5 days total Repaired broken NIV circuit at home (6) Postmenopausal bleeding: Status: Acute Assessment and plan: On home medicine regimen (7) GERD (gastroesophageal reflux disease): Status: Chronic Assessment and plan: Continue home PPI dose One dose of IV PPI given initially d/t high dose IV methylprednisolone (8) Contraindication to deep vein thrombosis (DVT) prophylaxis: Status: Acute Assessment and plan: Uterine bleeding on oral drug therapy Will continue TEDs/ SCD's (9) Discharge planning issues: Status: Acute Assessment and plan: D/c home when medically ready most likely on 06/30/2024 - nursing- PT- AUDIO TAPE LIBRARIAN resumption- new OT Discussed with Dr. Cesar Subjective Subjective Patient reports: feels better, tolerating liquids well, tolerating a regular diet, voiding w/o difficulty (schultz for I&O- d/c on discharge ), flatus, no bowel movement, shortness of breath (but close to baseline ) and afebrile; denies diarrhea, nausea or vomiting Exam Narrative Exam Narrative: Constitutional Morbidly obese patient in bed - speaks 5-6 word sentences HENMT: Facial structures with normal appearance Neuro:alert and oriented to self, person, place, time and situation. Nonfocal Resp: end expiratory slight wheezing to bilat lung dubose R> L, improved laryngeal wheezing-airflow positive in lung bases Cardio:regular rhythm, S1, S2, no murmur, bilateral radial and dorsalis pedis pulses are positive GI: Abdomen is large, not distended, soft and non tender, bowel sounds are present Extremities: Moves all 4 extremities Psych: RASS 0, congruent mood and normal affect. Objective Last Vital Signs Temp 37.0 C 06/29/24 08:04 Pulse 87 06/29/24 08:04 Resp 18 06/29/24 08:04 BP 112/60 06/29/24 08:04 Pulse Ox 95 06/29/24 08:04 Laboratory Results - last 24 hr 06/28/24 06/29/24 06:08 06:30 WBC 14.64 H 12.44 H RBC 4.16 4.18 Hgb 11.6 11.6 Hct 36.0 36.2 MCV 87 87 MCH 27.9 27.8 MCHC 32.2 32.0 RDW 17.7 H 17.4 H Plt Count 396 433 H MPV 10.7 10.7 Immature Gran % 0.7 0.6 Neutrophils % 77.7 71.6 Lymphocytes % 11.1 17.6 Monocytes % 10.2 8.9 Eosinophils % 0.1 1.1 Basophils % 0.2 0.2 Nucleated RBC % 0.0 0.0 Absolute Neutrophils 11.38 H 8.91 H Absolute Lymphocytes 1.63 2.19 Absolute Monocytes 1.49 H 1.11 H Absolute Eosinophils 0.01 0.14 Absolute Basophils 0.03 0.02 Sodium 143 140 Potassium 4.1 3.8 Chloride 102 99 Carbon Dioxide 32.7 H 38.2 H Anion Gap 8.3 2.8 L BUN 15 14 Creatinine 0.7 0.7 Est GFR (CKD-EPI 2020) 94.15 94.15 Glucose 87 91 Calcium 7.8 L 7.8 L Total Bilirubin 0.76 0.70 AST 118 H 128 H ALT 217 H 211 H Alkaline Phosphatase 73 66 Total Protein 6.8 6.7 Albumin 1.9 L 1.9 L Time Spent with Patient Time Spent with Patient: >50 minutes Time was spent: preparing to see the patient(eg.review tests), obtaining and/or reviewing separately otained hiistory, ordering medications,tests, procedures, referring, communicating with other health day care aide, indepentently interpreting results, counseling the patient and care coordination
--- NOTE | 2024-06-29 10:13 | PT.INTREAT ---
PT Notes Visit Reasons: CHF exacerbation, atrial fibrillation Inpatient Physical Therapy Treatment Note [facility] Date: 06/29/2024 PRECAUTIONS:oxygen to keep sats 88-92%9 currently 3L/Min, schultz, BiPAP at night, IV access SUBJECTIVE: Pt reports she had a good night. She stated she was waiting to see this PT so she could get out of bed. OBJECTIVE: pt approached while in bed agreeable to participate ? PAIN: 5 left knee VITALS: ?monitored via telemetry Therapeutic Activities (92406o4): Direct one-on-one instruction in dynamic activities to improve functional performance. ?? Provided skilled cues for pacing and instruction on performance and technique throughout. BED MOBILITY:?? ? supine with HOB elevated to sit at EOB independent with use of rails. TRANSFER: pt able to set up motorized wheelchair independently in prep for transfer. She independently managed oxygen tubing and catheter to ensure clear space for pivot transfer. ?perform pivot transfer bed to motorized wheelchair with SBA pt utilizes armrest of chair and bed as she pivots on her RLE. When able she rests her Left foot on the platform of her w/c for aided stability. pt tolerated stand x 2.5 mins for hygiene with BUE support and SBA. ASSESSMENT:? Pt demonstrates ability to perform her pivot transfer on RLE, she is unable to tolerate WB on LLE . She can use her LLE for balance only d/t pain and failed L TKA component per Radha. Pt with dyspnea post transfers and standing static for hygiene. She demonstrates ability to recover post mobility tasks. She can be resistive at times to suggestions for pacing and breath technique during tasks. Pt can be self limiting as she is set in her ways and limits what she is willing to participate in. Pt provided with orange sticks for hand /nail hygiene. PLAN:Pt would benefit from skilled PT 1-2 times per day for global strengthening, transfers, ambulation, pain management and balance facilitation TREATMENT CODE/TIME: 76596 x 14 mins for 1 unit [id number] DISCHARGE RECOMMENDATION: Home with PT
[2024-06-29] MEDS: Ferrous Sulfate 325 MG TAB PO (11:19)
[2024-06-29] MEDS: cefTRIAXone 2 GM/50 ML BAG IVPB (11:19)
--- NOTE | 2024-06-29 18:39 | PDOC.HHF2F ---
Home Health Referral Home Health Orders Clinical synopsis of why skilled professionals are needed: This 61-year-old female patient with past medical history of COPD on home oxygen at 3 L via nasal cannula, HFpEF with last LVEF at 55%, presented to the ED on 06/26/2024 for evaluation of increased shortness of breath status post BiPAP failure at home. New tubing for the BiPAP to be received on 06/27/2024 at the time. In the ED the patient was tachycardic up to 122 initially in the sinus rhythm then in atrial fibrillation as per EKG and then later again converting spontaneously to sinus rhythm. The patient remained hemodynamically stable. Respiratory rate was up to 27 with initial saturation in oxygen of 84% improving on BiPAP with oxygen bleed of 3 L. Workup in the ED was significant for a chest x-ray pointing to pulmonary congestion, WBC of 12.68, LFTs showing mild transaminitis improving from previous level completed on 06/07/2024. UA was positive for blood, nitrate, WBC 10-20 and negative for leukocyte esterase. Patient was admitted to the hospitalist service for evaluation and management of CHF exacerbation, sepsis and UTI. Third the patient reported increased cough and yellow sputum production and treatment was also initiated for COPD exacerbation. During the stay, COPD exacerbation was pulsed steroid and oral doxycycline; ordered sent to pharmacy to complete the course. The patient received IV Lasix and later, metolazone was added to the treatment with improvement of CHF symptoms. The patient will be discharged home on an increased dose of oral Lasix. Metolazone was stopped. d Schmtit was inserted for strict I &O's. The patient was treated with ceftriaxone IV for the UTI. Schmitt was later changed in the setting of confirmed ceftriaxone sensitive E. coli as the pathogen causing the UTI. This E. coli was a multi resistant organism different from the one the patient had on the previous stay. Schmitt catheter discontinued order for 06/30/2024. The patient fosfomycin orally ordered for 06/30/2024 with order for subsequent dose to be taken on 07/03/2024. Chronic medical conditions were treated as per home medicine regimen. The patient's BiPAP is functional again. The patient will need to follow-up with his primary care practitioner within a week of discharge. Pulmonology and cardiology referral also added to the discharge documents. The patient will go home with resumption of home health for nursing, PT, senior medical transcriptionist and new occupational therapy. Discussed with Dr. Cesar. Medical diagnosis necessitation home health referral: COPD exacerbation, CHF exacerbation, UTI Registered Nurse: Check all that apply Instruct on new or changed medication(s)/assess compliance: Ordered Assess for exacerbation of medical condition, instruct patient/caregivers on signs and symptoms to report for early detection: Ordered Physical Therapist: Check all that apply Increase strength & endurance for safe mobility at home: Ordered To design/establish home maintenance program: Ordered Better Breathing Program: Ordered Occupational Therapist: Evaluate and treat for patient unable to perform ADL/IADL/self-care: Ordered Upper extremity strengthening, range and motion: Ordered Inletter: Assist with community resources: Ordered Assist with director long term care care planning: Ordered Home Bound Status Requires the aid of supportive device (check all that apply): Wheelchair and Walker Describe why leaving home would require a considerable and taxing effort: Requires frequent rest periods, Oxygen and Incontinence Encounter Date and Reason: I certify that a FTF encounter for this patient was performed on June 29, 2024 and that such encounter was related to the primary reason the patient requires home health services. The encounter was conducted in the following manner: By me as the certifying physician, EXTRACTIONS TECHNICIAN, PA or By an inpatient physician, EXTRACTIONS TECHNICIAN or PA during an inpatient stay who communicated findings to me, Certification And Authentication I certify that I composed the above information based on my clinical judgment relating to this patient's medical condition and, if applicable, clinical findings communicated to me by the NPP or inpatient physician who performed the FTF encounter. Name of Provider that will be monitoring home health services: Alphonso Murphy
[2024-06-29] MEDS: Furosemide 80 MG TAB PO (20:10)
[2024-06-30] VITALS (14 sets, daily range): BP systolic 104–134; BP diastolic 66–76; PULSE 80–99; RESP 2–23; TEMP 36–37.2; O2SAT 91–100
[2024-06-30] MEDS: Levothyroxine 200 MCG TAB PO (05:37)
[2024-06-30 06:36] LABS: Abs Immature Grans 0.13 10^3/uL (0.0-0.06); Absolute Eosinophil Count 0.18 10^3/uL (0.0-0.7); Absolute Lymphocyte Count 2.35 10^3/uL (1.2-3.4); Absolute Monocyte Count 0.98 10^3/uL (0.1-0.8); Basophils % 0.4 %; Eosinophils % 1.3 %; HCT 41.4 % (36.0-46.0); HGB 13.4 g/dL (11.2-15.7); Immature Grans % 0.9 %; Lymphocytes % 16.5 %; MCH 27.5 pg (27.0-33.0); MCHC 32.4 % (32.0-36.0); MCV 85 fL (80-95); MPV 10.4 fL (8.0-11.0); Monocytes % 6.9 %; Platelet Count 511 10^3/uL (130-400); RBC 4.88 10^6/uL (3.93-5.22); RDW 17.1 % (11.7-14.6); RDW-SD 52.6 fL; WBC 14.23 10^3/uL (4.4-10.8)
[2024-06-30 06:45] LABS: Absolute Basophil Count 0.06 10^3/uL (0.0-0.2); Absolute Neutrophil Count 10.53 10^3/uL (1.2-6.7)
[2024-06-30 06:46] LABS: ALT 407 U/L (14-59); AST 316 U/L (15-37); Alkaline Phosphatase 72 U/L (46-116); Anion Gap 1.5 mmol/L (3-11); BUN 15 mg/dL (7-18); Bilirubin, Total 0.82 mg/dL (0.2-1.0); CO2 40.5 mmol/L (21.0-32.0); CREATININE 0.7 mg/dL (0.55-1.02); Calcium 8.3 mg/dL (8.5-10.1); Chloride 93 mmol/L (98-107); Estimated GFR 94.15 (mL/min/1.73m2); Glucose 88 mg/dL (74-106); Potassium 3.4 mmol/L (3.5-5.1); Sodium 135 mmol/L (136-145); Total Protein 7.2 g/dL (6.4-8.2)
[2024-06-30] MEDS: Albuterol/Ipratropium 3 ML UPD VIAL UPD ×2 (08:39→11:43)
[2024-06-30] MEDS: Lactobacillus Acidophilus CAP 1 CAP PO (08:57)
[2024-06-30] MEDS: predniSONE 20 MG TAB 40 MG PO (08:58)
[2024-06-30] MEDS: Norethindrone 5 MG TAB 10 MG PO (08:58)
[2024-06-30] MEDS: Docusate Sodium 100 MG CAP PO (08:58)
[2024-06-30] MEDS: Ascorbic Acid 500 MG TAB 1000 MG PO (08:58)
[2024-06-30] MEDS: Doxycycline Hyclate 100 MG CAP PO (08:58)
[2024-06-30] MEDS: Pantoprazole 20 MG TABCR PO (08:58)
[2024-06-30] MEDS: Potassium Chloride 20 MEQ TABCR PO (08:58)
[2024-06-30] MEDS: Fosfomycin Tromethamine 3 GM PACKET PO (08:59)
[2024-06-30] MEDS: Furosemide 80 MG TAB PO (08:59)
[2024-06-30] MEDS: Sertraline 50 MG TAB PO (08:59)
[2024-06-30] MEDS: Normal Saline Flush 10 ML SYR IVP (08:59)
--- NOTE | 2024-06-30 10:24 | PT.INTREAT ---
PT Notes Visit Reasons: CHF exacerbation, atrial fibrillation Date: 06/30/2024 PRECAUTIONS: oxygen to keep sats 88-92%9 currently 3L/Min, schultz, BiPAP at night, IV access SUBJECTIVE: Pt in motorized WC when approached for therapy session, agreed to participating with session OBJECTIVE: ? PAIN: 5 left knee VITALS: closely monitored by nursing ? Therapeutic Activities [id number]: Direct one-on-one instruction in dynamic activities to improve functional performance. ?? Provided skilled cues for pacing and instruction on performance and technique throughout. BED MOBILITY:?? Independent with bed transfers and mobility TRANSFER: Pt independent with WC to commode transfer, Commode to WC transfer (stand pivot) ASSESSMENT:? Pt able to perform transfers independently and was able to setup bed, O2 NC, and Motorized WC position for safe transitions. PLAN: Continue with balance training, global strengthening and general conditioning for improved safety, mobility and activity tolerance until pt is ready for DC. TREATMENT CODE/TIME: [id number] 10 mins(10:15-10:25am) DISCHARGE RECOMMENDATION: Home with HH PT
--- NOTE | 2024-06-30 11:21 | DSE_ITS ---
Date of service: 06/30/24 Time of Service: 11:21 DS: Diagnosis Discharge Diagnosis (1) Sepsis: Status: Acute (2) UTI (urinary tract infection): Status: Acute (3) CHF (congestive heart failure): Status: Chronic (4) Acute and chronic respiratory failure: Status: Acute (5) Chronic obstructive pulmonary disease with acute exacerbation: Status: Acute (6) Postmenopausal bleeding: Status: Acute (7) GERD (gastroesophageal reflux disease): Status: Chronic (8) Contraindication to deep vein thrombosis (DVT) prophylaxis: Status: Resolved (9) Discharge planning issues: Status: Resolved Discharge Plan Disposition Patient Disposition: Home W/Home Health Services Condition: Improving Discharge Details Reason For Visit: CHF exacerbation, atrial fibrillation Admit Date/Time: 06/26/24 16:03 Admit Provider: Brandan Hicks Attending Provider: Brandan Hicks Primary Care Provider: Alphonso Murphy Hospital Course Hospital Course: This is a 69-year-old female patient significant past medical history for morbid obesity COPD with oxygen dependency HFpEF with EF of 55% frequent UTIs who presented to the emergency department with complaints of shortness of breath in the setting of malfunctioning BiPAP. She was found to be tachycardic workup in the emergency department concerning for fluid overload COPD exacerbation UTI. She was admitted to the medical surgical unit under hospitalist services with sepsis without septic shock. She was treated with ceftriaxone and doxycycline. She slowly responded to treatment. Her urine grew E. coli multidrug-resistant that was sensitive to the cephalosporins specifically ceftriaxone that she was taking. She was medically stable and wanted to be discharged home. Original plan was to send her home with 1 dose of fosfomycin to complete her treatment for her UTI she was also prescribed doxycycline and prednisone for 3 more days to complete 5-day course. She is being discharged to home with resumption of home health services with the addition of occupational therapy. Upon arrival to the pharmacy she discovered she would not be able to afford the fosfomycin and her prescription was changed to cephalexin. discharge discussed with DR Cesar Ralston Meds and New Rx's Prescriptions: New furosemide 80 mg Tablet 80 mg PO BID@0830,1600 Qty: 60 0RF prednisone 20 mg tablet 40 mg PO DAILY Qty: 6 0RF doxycycline hyclate 100 mg capsule 100 mg PO BID Qty: 6 0RF cephalexin 500 mg capsule 500 mg PO Q8H Qty: 15 0RF Continued pantoprazole 20 mg tablet,delayed release (DR/EC) 20 mg PO DAILY Qty: 90 3RF Rx Instructions: 04/13/23 Per GI. -hb Zepbound 2.5 mg/0.5 mL pen injector 2.5 mg subcut QWEEK Qty: 2 0RF Rx Instructions: for 4 weeks ascorbic acid (vitamin C) 1,000 MG tablet 1,000 mg PO DAILY (DME) Aerochamber Mini 1 EACH spacer 1 ea Inhalation PRN Qty: 1 Rx Instructions: DIRECTED WITH INHALER BiPAP Inhalation Gas 5 l IN DIRECTED Rx Instructions: sleep apnea ([facility] sleep lab 2013) uses with oxygen betamethasone, augmented 0.05 % lotion 1 applic topical BID PRN (Reason: allergic reaction) Qty: 60 2RF ipratropium-albuterol 0.5 mg-3 mg(2.5 mg base)/3 mL solution for nebulization 3 ml IH QID MDD 4 nebs Qty: 180 3RF sertraline 50 mg tablet 50 mg PO DAILY Qty: 90 3RF levothyroxine 200 mcg tablet 200 mcg PO DAILY Qty: 90 3RF oxygen Inhalation 3 l Intranasal DIRECTED Patient Comments: Continuous and uses with bipap Rx Instructions: 3L/NC continuous albuterol sulfate 90 mcg/actuation HFA aerosol inhaler 1 - 2 puff Inhalation Q6H PRN Qty: 1 11RF alclometasone 0.05 % cream 1 applic topical BID PRN (Reason: itching) Qty: 45 1RF ketoconazole 2 % cream 1 applic topical BID PRN (Reason: facial rash) Qty: 60 1RF norethindrone acetate 5 mg tablet 10 mg PO BID Qty: 180 1RF ferrous sulfate 325 mg (65 mg iron) tablet 325 mg PO Q OTHER DAY Qty: 15 2RF potassium chloride [Klor-Con M20] 20 mEq Tablet,Er Particles/Crystals 20 meq PO DAILY Qty: 30 0RF nystatin 100,000 unit/gram powder 1 applic TP BID Qty: 30 5RF BiomePRO 50 billion cell capsule,delayed release(DR/EC) 1 cap PO DAILY Qty: 4 0RF Rx Instructions: Take 3 hours apart form any antibiotics Discontinued furosemide 40 mg tablet 60 mg PO BID Qty: 180 3RF Rx Instructions: per analytics leader [place] [facility] [place]charge Instructions Instructions: Chronic obstructive pulmonary disease (COPD), Heart failure, Urinary tract infection - Discharge instructions Additional Instructions: Take all medications as prescribed drink at least 6-8 glasses of water daily to stay well hydrated. Referrals: CARDIOLOGY,[facility] [OTHER] - (Recurrent admissions .Admitted with CHF exacerbation d/c on increased dose of diuretics, HFpEF LVEF 55% in 03/2024) Radha Storey PA [PHYSICIANS COMMODITY DIRECTOR] - (In with COPD exacerbation X 2 consecutive months) Alphonso Murphy MD [Primary Care Provider] - (follow up with PCP within a week of discharge) Activity:: Activity as Tolerated Equipment/Supplies:: No Equipment Needed Diet:: Low Sodium Discharge Orders Discharge Orders: Discharge Order (Routine); Ordered 06/30/24 Ordered By: Mine Farah Discharge Data Discharge Date/Time-TO BE ENTERED AT DEPARTURE: 06/30/24 12:46 DS: Summary Time Spent with Patient providing and/or coordinating discharge services: Greater than 30 minutes Status at Discharge Functional status at discharge: wheelchair bound Overall status at discharge: patient is progressing back to baseline Mental Status: mental status grossly normal Speech and Movement: speech and movement normal Mood: congruent mood Affect: irritable affect Quality:SDOH Health Related Social Needs: Health related social needs transportation insecurity( Z59.82) Exam Const General: no acute distress Nutritional Appearance: obese morbidly obese Orientation: alert, awake and oriented x3 HENMT Head: normal to inspection, normocephalic and atraumatic Mouth: oral mucosae normal Eyes General: appearance normal, both eyes and all related structures Resp Effort & Inspection: normal respiratory effort and able to speak in complete sentences Auscultation: diminished lung sounds bilaterally, no rhonchi and no wheezes Cardio Rate: regular rate Rhythm: regular rhythm GI Inspection: large pannus and obesity Palpation: soft Extrem General: edema (Lymphedema) Laterality: bilateral Psych Mental Status: mental status grossly normal Speech and Movement: speech and movement normal Mood: congruent mood Affect: irritable affect DS: Data Vitals/I&O Vitals and I&O: Vital Signs Temperature 36.9 C 06/30/24 08:48 Temperature Source Temporal Artery Scan 06/30/24 11:12 Pulse 84 06/30/24 08:48 Pulse Rhythm Regular 06/26/24 17:59 Pulse 90 06/26/24 17:31 Respiratory Rate 20 06/30/24 11:12 Respiratory Effort Short of Breath, Labored, Accessory Muscle Use 06/26/24 17:59 Respiratory Depth Shallow 06/26/24 17:59 Respiratory Pattern Tachypnea 06/26/24 17:59 Blood Pressure 134/76 06/30/24 11:12 Blood Pressure Mean 69 06/26/24 17:31 Blood Pressure Position Sitting 06/26/24 12:13 Pulse Oximetry 93 06/30/24 11:12 Oxygen Delivery Method Nasal Cannula 06/30/24 11:12 Oxygen Flow Rate 3 06/30/24 11:12 Fraction of Inspired Oxygen (FIO2) 32 06/30/24 08:39 Pain Level 0 06/30/24 07:30 Comment notified loulou varma 06/26/24 18:00 Intake & Output 06/29/24 06/29/24 06/30/24 11:59 23:59 11:59 Intake Total 50 / 290 240 / 290 640 / 640 Output Total 2500 / 4600 2100 / 4600 600 / 600 Balance -2450 / -4310 -1860 / -4310 40 / 40 Weight 185.5 kg 180.2 kg Intake: IV 50 / 110 60 / 110 Oral 180 / 180 640 / 640 Output: Urine 2500 / 4600 2100 / 4600 600 / 600 Other: Urine Color Yellow Yellow Yellow Urine Appearance Clear Clear Clear Urine Odor Normal Comment pt refused brief, andressa in case of incontinence. Data Completed and Pending Labs on day of discharge: Labs from last 24 hours 06/30/24 06:20 WBC 14.23 H RBC 4.88 Hgb 13.4 Hct 41.4 MCV 85 MCH 27.5 MCHC 32.4 RDW 17.1 H Plt Count 511 H MPV 10.4 Immature Gran % 0.9 Neutrophils % 74.0 Lymphocytes % 16.5 Monocytes % 6.9 Eosinophils % 1.3 Basophils % 0.4 Nucleated RBC % 0.0 Absolute Neutrophils 10.53 H Absolute Lymphocytes 2.35 Absolute Monocytes 0.98 H Absolute Eosinophils 0.18 Absolute Basophils 0.06 Sodium 135 L Potassium 3.4 L Chloride 93 L Carbon Dioxide 40.5 H Anion Gap 1.5 L BUN 15 Creatinine 0.7 Est GFR (CKD-EPI 2020) 94.15 Glucose 88 Calcium 8.3 L Total Bilirubin 0.82 AST 316 H ALT 407 H Alkaline Phosphatase 72 Total Protein 7.2 Albumin 2.0 L Preliminary micro results at discharge 06/26/24 13:42 Blood Culture - Preliminary Blood NO GROWTH 72 HOURS 06/26/24 12:40 Blood Culture - Preliminary Blood NO GROWTH 72 HOURS PFSH All Active Problems (Updated 07/01/24 @ 00:05 by TONY SINGH) Sepsis (Acute) CHF (congestive heart failure) (Chronic) Atrial fibrillation (Chronic) COPD (chronic obstructive pulmonary disease) (Chronic) Acute and chronic respiratory failure (Acute) Elevated white blood cell count (Acute) Abnormal liver enzymes (Acute) Chronic obstructive pulmonary disease with acute exacerbation (Acute) Exertional shortness of breath (Acute) UTI (urinary tract infection) (Acute) Heart failure with preserved ejection fraction (Acute) Wound dehiscence (Acute) Thickened endometrium (Acute) Postmenopausal bleeding (Acute) COPD (chronic obstructive pulmonary disease) (Acute) Laceration of dobson (Acute) GERD (gastroesophageal reflux disease) (Chronic) had negative barium esophagram in 11/2022. Anxiety (Chronic) Venous stasis dermatitis (Acute) Chronic headaches (Chronic) Recent Neurology consult for possible papilledema. Urinary incontinence (Chronic) On Detrol Recurrent UTI (Chronic) Right ventricular dysfunction (Chronic) Knee pain, bilateral (Chronic 07/23/14) s/p bilat TKR (left infected with mult surg and decreased mobility) Morbid obesity (Acute 04/05/13) Sensorineural hearing loss, bilateral (Chronic 08/29/13) Advance directive on file (Acute) Low back pain with sciatica (Chronic 05/03/14) CT at [facility] [place] L34 spinal stenosis Varicose veins of lower extremity (Chronic) Depression (Chronic) Grief at loss of child (Acute) Chronic respiratory failure with hypoxia and hypercapnia (Chronic) home BiPap Status post total bilateral knee replacement (Acute) Sprain of scapholunate ligament (Acute 03/21/19) DAVID (obstructive sleep apnea) (Chronic) on BiPap Hyperglycemia (Acute) Mixed conductive and sensorineural hearing loss of both ears (Acute) Right carpal tunnel syndrome (Acute) Arthritis of right hand (Acute) Impingement of right ulnar nerve (Acute) Dermoid cyst of neck (Acute) Hypothyroidism (Chronic) Microcalcifications of the breast (Acute) Neuropathy of left hand (Acute) Neuropathy of right hand (Acute) Bilateral carpal tunnel syndrome (Acute) Medical History Abnormal urinalysis Lymphedema Community acquired pneumonia Pneumonia Hx pulmonary embolism (~2015) treated with lovenox x 3 months Surgical History Status post thyroidectomy History of fasciotomy History of Surgical Procedure a. Right and left toal knee replacements. b. Left knee has been repeatedly operated on with slava surgies, three replacements. Replacement of total knee joint Bilateral; left-became eitemloc-imebsmj-hyeomuvi surgeries Fasciotomy, Foot (~1996) LEFT Family History Mother Diabetes Personal history of malignant neoplasm LUNG Father Personal history of malignant neoplasm BRAIN Grandfather No problems noted. Grandfather No problems noted. Grandmother No problems noted. Grandmother No problems noted. Social History Smoking/Tobacco Use Status: Former Tobacco Use tobacco type: cigarettes Quit Date: 01/21/21 Second Hand Exposure: Yes Smoking risk assessment performed?: Yes Alcohol Intake: never Drug use: Never Substance use type: does not use Counseling given: No Housing: apartment Communication Needs: Hard of Hearing and Corrective Lenses Pets and animals: Yes Pets and animals: cat(s) Sexually active: Yes Current gender identity: female What is your relationship status?: never How often do you talk on the phone with friends or family?: decline to answer How often do you get together with friends or relatives?: decline to answer How often do you attend religion or yazdanism services?: decline to answer Do you belong to any clubs or organized social groups?: no Panel score (0-1 are the most socially isolated patients): 0 Seatbelt use: never Do you feel safe at home: Yes Do you feel safe in your relationship?: Yes Time Spent with Patient Time Spent with Patient: 45-69 minutes Time was spent: preparing to see the patient(eg.review tests), obtaining and/or reviewing separately otained hiistory, ordering medications,tests, procedures, indepentently interpreting results and counseling the patient
--- NOTE | 2024-06-30 12:38 | PDOC.CMDIS ---
Date of service: 06/30/24 Time of Service: 12:38 LACE Index Scoring Tool Questions: Length of Stay (in days): 4 - 6 Was the patient admitted via the E.D.?: Yes Comorbidities: Congestive Heart Failure and Chronic Pulmonary Disease E.D. Visits: 5 Answers: Total Score: 16 Risk of Readmission: High Risk Care Management Discharge Plan Reason for Hospitalization: CHF, Afib Discharge Plan: Discharge home via private vehicle with family. Follow up with discharge plan of care and community providers, see discharge summary. Resume [facility] RN/PT/BUILDING ARCHITECT, add OT. Patient/Family Education Needs: Review discharge instructions, limitations and plan to make follow up appointments. Discuss ask me three and goals of self care. Services Needed at Discharge: Home Health Care Services (resumption of services, add OT) SDOH Health Related Social Needs: Health related social needs transportation insecurity(Z59.82)
--- NOTE | 2024-07-01 15:10 | PDOC.CMACT ---
Date of service: 07/01/24 Time of Service: 15:10 Care Management Activity Note Activity Note Text Activity Note Text: OZ Mayberry from [facility] called to report that Radha's Fosfomycin is over $100. Hospitalist reviewed and med was then changed to cephalexin 500 mg tid for 5 days, in addition to the RX for Doxycycline. CM notified [facility].
== END 2024-06-30 12:46 | disposition home health service (06) | DRG 871 ==
LOC: ER 15:42 → MS 17:58
PROVIDERS: Nurse Practitioner Acute Care; Admitting Provider Family Medicine; Emergency Provider Physician Assistant; PCP Family Medicine; Visit Provider Family Medicine
DX: A41.9 Sepsis, unspecified organism (principal); I50.33 Acute on chronic diastolic (congestive) heart failure; J96.21 Acute and chronic respiratory failure with hypoxia; Z68.45 Body mass index [BMI] 70 or greater, adult; J44.1 Chronic obstructive pulmonary disease with (acute) exacerbation; Z16.24 Resistance to multiple antibiotics; E89.0 Postprocedural hypothyroidism; E66.01 Morbid (severe) obesity due to excess calories; F32.A Depression, unspecified; I48.91 Unspecified atrial fibrillation; I87.2 Venous insufficiency (chronic) (peripheral); R32 Unspecified urinary incontinence; G47.33 Obstructive sleep apnea (adult) (pediatric); Z99.81 Dependence on supplemental oxygen; F41.9 Anxiety disorder, unspecified; R51.9 Headache, unspecified; N95.0 Postmenopausal bleeding; K21.9 Gastro-esophageal reflux disease without esophagitis; Z96.653 Presence of artificial knee joint, bilateral; Z86.711 Personal history of pulmonary embolism; Z87.891 Personal history of nicotine dependence; R74.01 Elevation of levels of liver transaminase levels; B96.29 Other Escherichia coli [E. coli] as the cause of diseases classified elsewhere
CPT/HCPCS: 00123; 36415; 51702; 80053; 82805; 84145; 87040; 87077; 87637; 93005; 94640; 96365; 96366; 96375; 97162; 97530; 99291; 71045; 81003; 81015; 83605; 83735; 83880; 84443; 84484; 85025; 87086; 87186; 93010; 94660; 94760; 99223; 99233; 99239; J0696; J1940; J1941; J2470; J2919; J3490; J7512; J7614; J7620; J7644

== ENCOUNTER 2024-07-03 16:17 | Emergency (ER) | payer MEDICARE, MEDICAID, SELFPAY ==
[2024-07-03] VITALS (18 sets, daily range): BP systolic 127–151; BP diastolic 54–88; PULSE 79–88; RESP 18–22; TEMP 36.1–36.8; O2SAT 90–95
--- NOTE | 2024-07-03 17:00 | RT.EKG_ITS ---
APPROVED REPORT Exam: Resting ECG Reason for Exam: shortness of breath Patient Location: E HR:81 bpm ECG Measurements Heart Rate 81 AXIS MA 181 P 66 QRSd 102 QRS 59 QT 460 T -7 QTc 535 Conclusion Sinus rhythm...normal P axis, V-rate 60- 99 Left atrial enlargement...P, P'>60mS, <-0.15mV V1 Probable inferior infarct, age indeterminate...Q>35mS, T neg, II III aVF Prolonged QT interval...QTc >500mS
--- NOTE | 2024-07-03 17:12 | ED.GENADUL_ITS ---
Discharge Plan Disposition Patient Disposition: Home Condition: Stable Discharge Details Clinical Impression: Shortness of breath Primary Care Provider: Alphonso Murphy ED Provider: Samy Garcia Home Meds and New Rx's Prescriptions: New nitrofurantoin monohyd/m-cryst [Macrobid] 100 mg capsule 100 mg PO Q12H 4 Days Qty: 8 0RF Rx Instructions: must administer with a meal/food Continued pantoprazole 20 mg tablet,delayed release (DR/EC) 20 mg PO DAILY Qty: 90 3RF Rx Instructions: 04/13/23 Per GI. -hb Zepbound 2.5 mg/0.5 mL pen injector 2.5 mg subcut QWEEK Qty: 2 0RF Rx Instructions: for 4 weeks ascorbic acid (vitamin C) 1,000 MG tablet 1,000 mg PO DAILY (DME) Aerochamber Mini 1 EACH spacer 1 ea Inhalation PRN Qty: 1 Rx Instructions: DIRECTED WITH INHALER BiPAP Inhalation Gas 5 l IN DIRECTED Rx Instructions: sleep apnea ([facility] sleep lab 2012) uses with oxygen betamethasone, augmented 0.05 % lotion 1 applic topical BID PRN (Reason: allergic reaction) Qty: 60 2RF ipratropium-albuterol 0.5 mg-3 mg(2.5 mg base)/3 mL solution for nebulization 3 ml IH QID MDD 4 nebs Qty: 180 3RF sertraline 50 mg tablet 50 mg PO DAILY Qty: 90 3RF levothyroxine 200 mcg tablet 200 mcg PO DAILY Qty: 90 3RF oxygen Inhalation 3 l Intranasal DIRECTED Patient Comments: Continuous and uses with bipap Rx Instructions: 3L/NC continuous albuterol sulfate 90 mcg/actuation HFA aerosol inhaler 1 - 2 puff Inhalation Q6H PRN Qty: 1 11RF alclometasone 0.05 % cream 1 applic topical BID PRN (Reason: itching) Qty: 45 1RF ketoconazole 2 % cream 1 applic topical BID PRN (Reason: facial rash) Qty: 60 1RF norethindrone acetate 5 mg tablet 10 mg PO BID Qty: 180 1RF ferrous sulfate 325 mg (65 mg iron) tablet 325 mg PO Q OTHER DAY Qty: 15 2RF potassium chloride [Klor-Con M20] 20 mEq Tablet,Er Particles/Crystals 20 meq PO DAILY Qty: 30 0RF nystatin 100,000 unit/gram powder 1 applic TP BID Qty: 30 5RF BiomePRO 50 billion cell capsule,delayed release(DR/EC) 1 cap PO DAILY Qty: 4 0RF Rx Instructions: Take 3 hours apart form any antibiotics furosemide 80 mg Tablet 80 mg PO BID@0830,1600 Qty: 60 0RF prednisone 20 mg tablet 40 mg PO DAILY Qty: 6 0RF doxycycline hyclate 100 mg capsule 100 mg PO BID Qty: 6 0RF cephalexin 500 mg capsule 500 mg PO Q8H Qty: 15 0RF Discharge Instructions Additional Instructions: Your workup tonight did not show any significant changes from your baseline Follow-up with your primary care provider scheduled If you feel more ill or have worsening shortness of breath or high fevers return to the emergency department for reevaluation. HPI General Mode of arrival: ambulatory . Date/Time Provider Initiated Documentation: 07/03/24 16:26 . Limitations to Documentation: no limitations . Information obtained by: patient . History of Present Illness 69 year old F presents to the emergency department with the chief complaint of Difficulty breathing, described as moderate, Patient started experiencing this day(s) (2) and it has been constant. No relieving factors improve symptom(s), No exacerbating factors reported . Patient notes cough; denies chest pain and fever/chills. Patient did receive the following treatments prior to arrival, none Related Data Home Medications ?Medication ?Instructions ?Recorded ?Confirmed ascorbic acid (vitamin C) 1,000 mg 1,000 mg PO DAILY 11/25/12 07/03/24 tablet inhalational spacing device ##1 12/21/13 07/03/24 (Aerochamber Mini) Bipap 5 l IN DIRECTED 07/23/14 07/03/24 betamethasone, augmented 0.05 % 1 applic topical BID PRN allergic 06/20/21 1 09/02/23 lotion reaction #60 mL ipratropium 0.5 mg-albuterol 3 mg 3 ml inhalation QID COPD 10/16/22 07/03/24 (2.5 mg base)/3 mL nebulization exacerbation/wheezing #180 mL soln pantoprazole 20 mg tablet,delayed 20 mg PO DAILY #90 tabs 08/04/23 07/03/24 release sertraline 50 mg tablet 50 mg PO DAILY #90 tabs 10/13/23 07/03/24 levothyroxine 200 mcg tablet 200 mcg PO DAILY #90 tabs 02/15/24 07/03/24 oxygen 3 l intranasal DIRECTED 04/02/24 07/03/24 ferrous sulfate 325 mg (65 mg 325 mg PO Q OTHER DAY #15 tabs 04/12/24 07/03/24 iron) tablet norethindrone acetate 5 mg tablet 10 mg (2 x 5 mg) PO BID #180 tabs 04/12/24 07/03/24 albuterol sulfate 90 mcg/actuation 1 - 2 puff inhalation Q6H PRN ##1 04/14/24 07/03/24 aerosol inhaler alclometasone 0.05 % topical cream 1 applic topical BID PRN itching 04/17/24 07/03/24 #45 grams ketoconazole 2 % topical cream 1 applic topical BID PRN facial 04/17/24 07/03/24 rash #60 grams L. acidophilus,casei,rhamnosus 50 1 cap PO DAILY #4 caps 06/04/24 07/03/24 billion cell capsule,delayed release (BiomePRO) nystatin 100,000 unit/gram topical 1 applic topical BID intertrigo 06/04/24 07/03/24 powder #30 grams potassium chloride 20 mEq 20 meq PO DAILY #30 tabs 06/04/24 07/03/24 tablet,extended release(part/cryst) (Klor-Con M) tirzepatide (weight loss) 2.5 2.5 mg (0.5 mL) subcut QWEEK #2 mL 06/12/24 07/03/24 mg/0.5 mL subcutaneous pen injector (Zepbound) doxycycline hyclate 100 mg capsule 100 mg PO BID #6 caps 06/29/24 07/03/24 furosemide 80 mg tablet 80 mg PO BID@0830,1600 #60 tabs 06/29/24 07/03/24 prednisone 20 mg tablet 40 mg (2 x 20 mg) PO DAILY #6 tabs 06/29/24 07/03/24 cephalexin 500 mg capsule 500 mg PO Q8H #15 caps 07/01/24 07/03/24 nitrofurantoin 100 mg PO Q12H 4 days #8 caps 07/03/24 monohydrate/macrocrystals 100 mg capsule (Macrobid) Previous Rx's ?Medication ?Instructions ?Recorded betamethasone, augmented 0.05 % 1 applic topical BID PRN allergic 06/20/21 lotion reaction #60 mL ipratropium 0.5 mg-albuterol 3 mg 3 ml inhalation QID COPD 10/16/22 (2.5 mg base)/3 mL nebulization exacerbation/wheezing #180 mL soln pantoprazole 20 mg tablet,delayed 20 mg PO DAILY #90 tabs 08/04/23 release sertraline 50 mg tablet 50 mg PO DAILY #90 tabs 10/13/23 levothyroxine 200 mcg tablet 200 mcg PO DAILY #90 tabs 02/15/24 ferrous sulfate 325 mg (65 mg 325 mg PO Q OTHER DAY #15 tabs 04/12/24 iron) tablet norethindrone acetate 5 mg tablet 10 mg (2 x 5 mg) PO BID #180 tabs 04/12/24 albuterol sulfate 90 mcg/actuation 1 - 2 puff inhalation Q6H PRN ##1 04/14/24 aerosol inhaler alclometasone 0.05 % topical cream 1 applic topical BID PRN itching 04/17/24 #45 grams ketoconazole 2 % topical cream 1 applic topical BID PRN facial 04/17/24 rash #60 grams L. acidophilus,casei,rhamnosus 50 1 cap PO DAILY #4 caps 06/04/24 billion cell capsule,delayed release (BiomePRO) nystatin 100,000 unit/gram topical 1 applic topical BID intertrigo 06/04/24 powder #30 grams potassium chloride 20 mEq 20 meq PO DAILY #30 tabs 06/04/24 tablet,extended release(part/cryst) (Klor-Con M) tirzepatide (weight loss) 2.5 2.5 mg (0.5 mL) subcut QWEEK #2 mL 06/12/24 mg/0.5 mL subcutaneous pen injector (Zepbound) doxycycline hyclate 100 mg capsule 100 mg PO BID #6 caps 06/29/24 furosemide 80 mg tablet 80 mg PO BID@0830,1600 #60 tabs 06/29/24 prednisone 20 mg tablet 40 mg (2 x 20 mg) PO DAILY #6 tabs 06/29/24 cephalexin 500 mg capsule 500 mg PO Q8H #15 caps 07/01/24 nitrofurantoin 100 mg PO Q12H 4 days #8 caps 07/03/24 monohydrate/macrocrystals 100 mg capsule (Macrobid) Allergies Allergy/AdvReac Type Severity Reaction Status Date / Time hydrocodone Allergy Severe ITCHING Verified 07/03/24 16:24 morphine Allergy Mild PRURITIS Verified 07/03/24 16:24 oxycodone Allergy Mild ITCHING Verified 07/03/24 16:24 General Stated Complaint: RespSymp REUBEN: 3 Review of Systems All systems reviewed & are unremarkable except as noted in HPI and below Constitutional Constitutional: Denies chills, Denies fever(s) and Denies weakness Cardiovascular Cardiovascular: Denies chest pain and Reports dyspnea Respiratory Respiratory: Reports cough and Reports dyspnea Gastrointestinal Gastrointestinal: Denies abdominal pain, Denies nausea and Denies vomiting Musculoskeletal Musculoskeletal: Denies joint swelling Neurologic Neurologic: Denies weakness Exam Const General: no acute distress Orientation: alert HENLA Head: normal to inspection Ears: external ears normal General nose exam: external nose normal Mouth: moist mucous membranes Eyes General: appearance normal, both eyes and all related structures Neck Neck: normal visual inspection Resp Effort & Inspection: normal respiratory effort and able to speak in complete sentences Auscultation: wheezes Cardio Jugular venous pressure: no JVD Rate: regular rate GI Palpation: soft and nontender Skin General skin exam: no rashes or lesions noted Neuro General: patient alert and patient oriented x3 Extrem General: normal to inspection Psych Mental Status: mental status grossly normal Course Vital Signs Vital signs: Vital Signs Temperature 36.2 C L 07/03/24 16:22 Pulse 88 07/03/24 16:22 Respiratory Rate 18 07/03/24 16:22 Blood Pressure 138/88 07/03/24 16:22 Pulse Oximetry 94 07/03/24 16:22 Temperature 36.2 C L 07/03/24 16:22 Temperature Source Oral 07/03/24 16:22 Pulse 88 07/03/24 16:22 Respiratory Rate 18 07/03/24 16:22 Blood Pressure 138/88 07/03/24 16:22 Blood Pressure Position Sitting 07/03/24 16:22 Pulse Oximetry 94 07/03/24 16:22 Oxygen Delivery Method Nasal Cannula 07/03/24 16:22 Oxygen Flow Rate 3 07/03/24 16:22 Medical Decision Making 69-year-old female with a history of COPD, CHF, recent admission and discharge several days ago for pneumonia COPD and CHF exacerbation comes in with continued complaints of feeling short of breath along with cough. She is normally on 3 L nasal cannula and is on this currently speaking clearly in no distress and is 94%. She denies any high fevers, severe chest pain. She does have wheezing at the apices bilaterally, diminished breath sounds at the bases. No calf tenderness. Unclear if this is acute or partially chronic from her underlying medical problems. Will treat her symptoms with a DuoNeb and Solu-Medrol, will also obtain a chest x-ray to evaluate for continued pneumonia. Her abdomen is soft and nontender so do not feel any imaging of her abdomen is indicated. Will check a CBC and CMP and Pro-Alejandro and proBNP and troponins. Patient's labs without significant change from baseline, has chronic leukocytosis, mildly low mag and potassium. X-ray with question of mild CHF, though she is clinically not in overt CHF do not feel IV diuresis indicated. Will obtain delta troponin, she says she feels much better and her lung exam is much better after the DuoNeb. Discussed with her observation admission versus discharge of her second Trope is negative and she would prefer outpatient management which I feel is reasonable given improvement with DuoNeb and postnasally changes from her baseline labs. Her urine does still show continued findings of a UTI, her prior culture that she had did show was susceptible to Macrobid, she is currently on cephalexin, will consider adding Macrobid to her regiment. Second troponin negative, patient remained stable for the discharge. I will add Macrobid to her regimen. She will follow-up with PCP and return precautions given. Differential Diagnosis Differential Diagnosis: COPD, CHF, pneumonia, NSTEMI Medical Records Medical records reviewed: Yes I reviewed the patient's medical records. Lab Data Lab results reviewed: Yes I reviewed the patient's lab results. ECG Data Attestation: I personally reviewed and interpreted this ECG (s) as follows: Prior ECG tracings: available for review Interpretation: Sinus rhythm, rate 81, QTc 535, no STEMI Quality:SDOH Health Related Social Needs: Health related social needs transportation insecurity( Z59.82) [facility] All Active Problems (Updated 07/03/24 @ 20:04 by Samy Garcia MD) Shortness of breath (Acute) Sepsis (Acute) CHF (congestive heart failure) (Chronic) Atrial fibrillation (Chronic) COPD (chronic obstructive pulmonary disease) (Chronic) Acute and chronic respiratory failure (Acute) Elevated white blood cell count (Acute) Abnormal liver enzymes (Acute) Chronic obstructive pulmonary disease with acute exacerbation (Acute) Exertional shortness of breath (Acute) Heart failure with preserved ejection fraction (Acute) Wound dehiscence (Acute) Thickened endometrium (Acute) Postmenopausal bleeding (Acute) COPD (chronic obstructive pulmonary disease) (Acute) Laceration of dobson (Acute) GERD (gastroesophageal reflux disease) (Chronic) had negative barium esophagram in 11/2022. Anxiety (Chronic) Venous stasis dermatitis (Acute) Chronic headaches (Chronic) Recent Neurology consult for possible papilledema. Urinary incontinence (Chronic) On Detrol Recurrent UTI (Chronic) Right ventricular dysfunction (Chronic) Knee pain, bilateral (Chronic 07/23/14) s/p bilat TKR (left infected with mult surg and decreased mobility) Morbid obesity (Acute 04/05/13) Sensorineural hearing loss, bilateral (Chronic 08/29/13) Advance directive on file (Acute) Low back pain with sciatica (Chronic 05/03/14) [place] at [facility] [place] L34 [place] stenosis Varicose veins of lower extremity (Chronic) Depression (Chronic) Grief at loss of child (Acute) Chronic respiratory failure with hypoxia and hypercapnia (Chronic) home BiPap Status post total bilateral knee replacement (Acute) Sprain of scapholunate ligament (Acute 03/21/19) DAVID (obstructive sleep apnea) (Chronic) on BiPap Hyperglycemia (Acute) Mixed conductive and sensorineural hearing loss of both ears (Acute) Right carpal tunnel syndrome (Acute) Arthritis of right hand (Acute) Impingement of right ulnar nerve (Acute) Dermoid cyst of neck (Acute) Hypothyroidism (Chronic) Microcalcifications of the breast (Acute) Neuropathy of left hand (Acute) Neuropathy of right hand (Acute) Bilateral carpal tunnel syndrome (Acute) Medical History Abnormal urinalysis Lymphedema Community acquired pneumonia Pneumonia Hx pulmonary embolism (~2015) treated with lovenox x 3 months Surgical History Status post thyroidectomy History of fasciotomy History of Surgical Procedure a. Right and left toal knee replacements. b. Left knee has been repeatedly operated on with slava surgies, three replacements. Replacement of total knee joint Bilateral; left-became [id number] surgeries Fasciotomy, Foot (~1996) LEFT Family History Mother Diabetes Personal history of malignant neoplasm LUNG Father Personal history of malignant neoplasm BRAIN Grandfather No problems noted. Grandfather No problems noted. Grandmother No problems noted. Grandmother No problems noted. Social History Smoking/Tobacco Use Status: Former Tobacco Use tobacco type: cigarettes Quit Date: 01/21/21 Second Hand Exposure: Yes Smoking risk assessment performed?: Yes Alcohol Intake: never Drug use: Never Substance use type: does not use Counseling given: No Housing: apartment Communication Needs: Hard of Hearing and Corrective Lenses Pets and animals: Yes Pets and animals: cat(s) Sexually active: Yes Current gender identity: female What is your relationship status?: never How often do you talk on the phone with friends or family?: decline to answer How often do you get together with friends or relatives?: decline to answer How often do you attend rastafarian or islam services?: decline to answer Do you belong to any clubs or organized social groups?: no Panel score (0-1 are the most socially isolated patients): 0 Seatbelt use: never Do you feel safe at home: Yes Do you feel safe in your relationship?: Yes
--- NOTE | 2024-07-03 17:43 | DI.RAD_ITS ---
Exam(s) XR PORTABLE CHEST AP EXAM: XR PORTABLE CHEST AP CLINICAL HISTORY: cough TECHNIQUE: 2D digital imaging was performed. COMPARISON: CR XR PORTABLE CHEST AP from 06/26/2024 FINDINGS: Exam is extremely limited by under penetration at the lung bases. LUNGS: Poor penetration at the lung bases. Bibasilar infiltrates are not excluded. Pulmonary vascul ar prominence. Mild CHF should be considered. No visible pleural effusion. No pneumothorax. HEART: Enlarged. AORTA: Mildly tortuous. BONES: Spine obscured. Soft tissues: Unremarkable. IMPRESSION: Extremely limited exam. Question mild CHF. Basilar infiltrates are not excluded. DATA REPOSITORY: RADIATION DOSE DELIVERED:
[2024-07-03] MEDS: Albuterol/Ipratropium 3 ML UPD VIAL UPD (18:14)
[2024-07-03] MEDS: methylPREDNISolone SUCC 125 MG VIAL IVP (18:14)
[2024-07-03 18:26] LABS: Bilirubin Negative (Negative); Blood Large (Negative); Clarity Cloudy (Clear); Glucose Negative (Negative); Ketones Negative (Negative); Leukocyte Esterase Small (Negative); Nitrite Negative (Negative); Specific Gravity 1.015 (1.005-1.025)
[2024-07-03 18:32] LABS: Bacteria Many HPF (Negative); C & S Indicated? Yes; Casts Negative LPF (Negative); Crystals Negative HPF (Negative); Epithelial Cells Few HPF (Negative); Mucus Heavy (Negative); Other Cells Negative (Negative); RBC >50 HPF (0-2); WBC 20-50 HPF (0-5)
[2024-07-03 18:48] LABS: COVID-19 PCR Negative (Negative); Influenza A PCR Negative (Negative); Influenza B PCR Negative (Negative); RSV PCR Negative (Negative)
[2024-07-03 18:49] LABS: Source Nasopharynx
[2024-07-03 19:04] LABS: BE (Venous) 17 mmol/L (-2-3); HCO3 (Venous) 40 mmol/L (23-28); O2 Sat (Venous) 94 %; TCO2 (Venous) 34 mmol/L (24-29); pCO2 (Venous) 49 mmHg (41-51); pH (Venous) 7.51 (7.31-7.41); pO2 (Venous) 64 mmHg
[2024-07-03 19:05] LABS: Abs Immature Grans 0.27 10^3/uL (0.0-0.06); Absolute Monocyte Count 1.52 10^3/uL (0.1-0.8); Absolute Neutrophil Count 12.52 10^3/uL (1.2-6.7); Basophils % 0.4 %; Eosinophils % 1.2 %; HCT 45.9 % (36.0-46.0); HGB 14.9 g/dL (11.2-15.7); Immature Grans % 1.5 %; Lymphocytes % 19.1 %; MCH 27.3 pg (27.0-33.0); MCHC 32.5 % (32.0-36.0); MCV 84 fL (80-95); MPV 10.3 fL (8.0-11.0); Monocytes % 8.4 %; Neutrophils % 69.4 %; Platelet Count 551 10^3/uL (130-400); RBC 5.46 10^6/uL (3.93-5.22); RDW 16.8 % (11.7-14.6); RDW-SD 51.1 fL; WBC 18.04 10^3/uL (4.4-10.8)
[2024-07-03 19:07] LABS: Absolute Basophil Count 0.07 10^3/uL (0.0-0.2); Absolute Eosinophil Count 0.22 10^3/uL (0.0-0.7); Absolute Lymphocyte Count 3.45 10^3/uL (1.2-3.4)
[2024-07-03 19:16] LABS: Diff Comment Diff Reviewed; RBC Morphology Normal
[2024-07-03 19:35] LABS: ALT 409 U/L (14-59); AST 168 U/L (15-37); Albumin 2.2 g/dL (3.4-5.0); Alkaline Phosphatase 94 U/L (46-116); Anion Gap 6.8 mmol/L (3-11); BUN 19 mg/dL (7-18); Bilirubin, Total 0.96 mg/dL (0.2-1.0); CO2 36.2 mmol/L (21.0-32.0); CREATININE 0.7 mg/dL (0.55-1.02); Calcium 8.1 mg/dL (8.5-10.1); Chloride 93 mmol/L (98-107); Estimated GFR 94.15 (mL/min/1.73m2); Glucose 99 mg/dL (74-106); Magnesium 1.6 mg/dL (1.8-2.4); NT-proBNP 237 pg/mL (<300); Potassium 3.2 mmol/L (3.5-5.1); Sodium 136 mmol/L (136-145); Total Protein 7.7 g/dL (6.4-8.2); Troponin I 9 ng/L (<or=51)
[2024-07-03 19:38] LABS: Procalcitonin < 0.10 ng/mL
[2024-07-03 19:40] LABS: INR 1.2 (0.9-1.1); PTT Activated 24.3 sec (23.6-32.8); Prothrombin Time 11.6 sec (9.1-11.1)
[2024-07-03 20:14] LABS: Troponin I 8 ng/L (<or=51)
[2024-07-03] MEDS: MacroBID 100 MG CAP, 2 CAPS/BTL PO (20:32)
--- NOTE | 2024-07-05 12:44 | NUR.NOTE ---
patient called regarding rx given on 07/03/24. pt stated rx was not at the pharmacy. this nurse spoke with dr butler who said to call it in. Nursing Note:
--- NOTE | 2024-07-06 10:46 | W.ED.FU ---
Date of service: 07/03/24 Follow Up Plan: Received urine culture from ED visit 07/03/2024. Culture growing enteric coccus faecium greater than 100,000, resistant to ampicillin, ciprofloxacin, and vancomycin. No other sensitivities listed. Patient was on cephalexin and doxycycline at time of visit and was started on Macrobid as well. Unclear if this coverage will suffice for Enterococcus faecium. I called PCP office and PCP not available. I spoke with primary care office nurse and discussed culture result. I recommended close outpatient follow-up for reassessment and recheck of urine. She will arrange for this and has already spoken with the patient.
== END 2024-07-03 20:39 | disposition home or self-care (01) ==
PROVIDERS: Emergency Provider Emergency Medicine; PCP Family Medicine
DX: R06.02 Shortness of breath (principal); R05.9 Cough, unspecified; J44.9 Chronic obstructive pulmonary disease, unspecified; I48.91 Unspecified atrial fibrillation; R94.31 Abnormal electrocardiogram [ECG] [EKG]; Z99.81 Dependence on supplemental oxygen; Z86.718 Personal history of other venous thrombosis and embolism; Z87.891 Personal history of nicotine dependence
CPT/HCPCS: 80053; 82805; 84145; 87077; 87637; 93005; 94640; 96374; 99285; 71045; 81003; 81015; 83735; 83880; 84484; 85025; 85610; 85730; 87086; 87186; 93010; J2919; J7620

== ENCOUNTER 2024-08-04 17:25 | Inpatient (IN) | payer MEDICARE, MEDICAID, SELFPAY ==
[2024-08-04] VITALS (32 sets, daily range): BP systolic 108–179; BP diastolic 55–120; PULSE 75–93; RESP 3–36; TEMP 37–37.6; O2SAT 85–98
--- NOTE | 2024-08-04 17:30 | RT.EKG_ITS ---
APPROVED REPORT Exam: Resting ECG Reason for Exam: sob Patient Location: E HR:82 bpm ECG Measurements Heart Rate 82 AXIS DC 173 P 62 QRSd 103 QRS 45 QT 427 T -46 QTc 498 Conclusion Sinus rhythm...normal P axis, V-rate 60- 99 Atrial premature complex...SV complex w/ short R-R interval
--- NOTE | 2024-08-04 17:36 | ED.GENADUL_ITS ---
Discharge Plan Disposition Patient Disposition: Admit to [facility] Discharge Details Clinical Impression: COPD (chronic obstructive pulmonary disease) Primary Care Provider: Alphonso Murphy ED Provider: Milly Peck Home Meds and New Rx's Prescriptions: No Action Zepbound 2.5 mg/0.5 mL pen injector 2.5 mg subcut QWEEK Qty: 2 0RF Rx Instructions: for 4 weeks albuterol sulfate 90 mcg/actuation HFA aerosol inhaler 1 - 2 puff Inhalation Q6H PRN Qty: 1 11RF ipratropium-albuterol 0.5 mg-3 mg(2.5 mg base)/3 mL solution for nebulization 3 ml IH QID MDD 4 nebs Qty: 180 3RF fluticasone propionate [Flonase Allergy Relief] 50 mcg/actuation spray,suspension 1 spray NS DAILY Qty: 1 8RF potassium chloride [Klor-Con M20] 20 mEq tablet,ER particles/crystals 20 meq PO DAILY Qty: 90 3RF ascorbic acid (vitamin C) 1,000 MG tablet 1,000 mg PO DAILY (DME) Aerochamber Mini 1 EACH spacer 1 ea Inhalation PRN Qty: 1 Rx Instructions: DIRECTED WITH INHALER BiPAP Inhalation Gas 5 l IN DIRECTED Rx Instructions: sleep apnea ([facility] sleep lab 2012) uses with oxygen betamethasone, augmented 0.05 % lotion 1 applic topical BID PRN (Reason: allergic reaction) Qty: 60 2RF levothyroxine 200 mcg tablet 200 mcg PO DAILY Qty: 90 3RF oxygen Inhalation 3 l Intranasal DIRECTED Patient Comments: Continuous and uses with bipap Rx Instructions: 3L/NC continuous alclometasone 0.05 % cream 1 applic topical BID PRN (Reason: itching) Qty: 45 1RF ketoconazole 2 % cream 1 applic topical BID PRN (Reason: facial rash) Qty: 60 1RF furosemide 80 mg tablet 80 mg PO BID@0830,1600 Qty: 60 0RF pantoprazole 20 mg tablet,delayed release (DR/EC) 20 mg PO DAILY Qty: 90 3RF Rx Instructions: 04/13/23 Per GI. -hb sertraline 50 mg tablet 50 mg PO DAILY Qty: 90 3RF norethindrone acetate 5 mg tablet 10 mg PO BID Qty: 180 1RF ferrous sulfate 325 mg (65 mg iron) tablet 325 mg PO Q OTHER DAY Qty: 15 2RF nystatin 100,000 unit/gram powder 1 applic TP BID Qty: 30 5RF BiomePRO 50 billion cell capsule,delayed release(DR/EC) 1 cap PO DAILY Qty: 4 0RF Rx Instructions: Take 3 hours apart form any antibiotics prednisone 20 mg tablet 40 mg PO DAILY Qty: 6 0RF doxycycline hyclate 100 mg capsule 100 mg PO BID Qty: 6 0RF cephalexin 500 mg capsule 500 mg PO Q8H Qty: 15 0RF HPI General Date/Time Provider Initiated Documentation: 08/04/24 17:30 . HPI Narrative: Radha is a 69year old female with history of COPD who presents to the emergency department today for evaluation of shortness of breath. She reports that she started with cough yesterday that is productive of green sputum. Today she developed wheezing and shortness of breath, says this is not responding well to her DuoNebs every 4 hours at home. She also reports left posterior rib pain. Shortness of breath is aggravated with movement. She does admit to some increased pedal edema, says she has been taking her diuretic as prescribed. She reports she had a slightly elevated temperature today of 99.8 at home when home health checked her vital signs. She denies congestion, sore throat, chest pain other than left lower posterior rib pain, nausea/vomiting, abdominal pain, change in bowel or bladder function. No known recent ill contacts. Denies history of intubation due to COPD.. Past medical history is significant for COPD, A-fib not on anticoagulation, CHF, hypothyroidism. Physical exam remarkable for increased work of breathing, 1-2 word dyspnea. Coarse wheezes in all lung dubose. Normal heart sounds. Significant pedal edema noted bilaterally, consistent with history of lymphedema. Radha is alert and oriented, responding appropriately to questions. O2 sat in the upper 80s on her usual 3 L O2 via nasal cannula. D/dx includes but is not limited to: COPD exacerbation, pneumonia, CHF. Timeline not consistent with PE or ACS based on timeline, though will obtain troponins due to chest discomfort. I independently interpreted the following tests: EKG reassuring, normal sinus rhythm rate 82, no changes consistent with acute ischemia. Normal intervals. PAC noted. CBC notable for mild leukocytosis, WBC 11.11. Thrombocytosis unchanged from previous. VBG overall reassuring, pH normal. CMP notable for mild hypokalemia, unchanged from previous and mild hypomagnesemia 1.7, unchanged to previous. Troponin reassuring at 14. Chest x-ray of poor quality, unclear if there may be bibasilar opacities/infiltrates. CXR was interpreted by radiologist as interval increase in vascular congestion and enlarged cardiac silhouette, however patient presentation and history is most consistent with COPD exacerbation. While in the emergency department, Radha received 3 concurrent DuoNebs and Solu- Medrol IV with good improvement of breathing, no dyspnea at this still persist. Faint coarse wheezes in all lung dubose. Overall workup today consistent with COPD exacerbation, question possible pneumonia. Presented case to Dr. Ferrer, patient to be admitted to [facility] unit for COPD exacerbation with pneumonia coverage. Related Data Home Medications ?Medication ?Instructions ?Recorded ?Confirmed ascorbic acid (vitamin C) 1,000 mg 1,000 mg PO DAILY 11/25/12 08/04/24 tablet inhalational spacing device ##1 12/21/13 08/04/24 (Aerochamber Mini) Bipap 5 l IN DIRECTED 07/23/14 08/04/24 betamethasone, augmented 0.05 % 1 applic topical BID PRN allergic 06/20/21 08/04/24 lotion reaction #60 mL levothyroxine 200 mcg tablet 200 mcg PO DAILY #90 tabs 02/15/24 08/04/24 oxygen 3 l intranasal DIRECTED 04/02/24 08/04/24 ferrous sulfate 325 mg (65 mg 325 mg PO Q OTHER DAY #15 tabs 04/12/24 08/04/24 iron) tablet norethindrone acetate 5 mg tablet 10 mg (2 x 5 mg) PO BID #180 tabs 04/12/24 08/04/24 alclometasone 0.05 % topical cream 1 applic topical BID PRN itching 04/17/24 08/04/24 #45 grams ketoconazole 2 % topical cream 1 applic topical BID PRN facial 04/17/24 08/04/24 rash #60 grams L. acidophilus,casei,rhamnosus 50 1 cap PO DAILY #4 caps 06/04/24 08/04/24 billion cell capsule,delayed release (BiomePRO) nystatin 100,000 unit/gram topical 1 applic topical BID intertrigo 06/04/24 08/04/24 powder #30 grams tirzepatide (weight loss) 2.5 2.5 mg (0.5 mL) subcut QWEEK #2 mL 06/12/24 08/04/24 mg/0.5 mL subcutaneous pen injector (Zepbound) doxycycline hyclate 100 mg capsule 100 mg PO BID #6 caps 06/29/24 08/04/24 prednisone 20 mg tablet 40 mg (2 x 20 mg) PO DAILY #6 tabs 06/29/24 08/04/24 cephalexin 500 mg capsule 500 mg PO Q8H #15 caps 07/01/24 08/04/24 albuterol sulfate 90 mcg/actuation 1 - 2 puff inhalation Q6H PRN ##1 07/17/24 08/04/24 aerosol inhaler fluticasone propionate 50 1 spray NS DAILY ##1 07/17/24 08/04/24 mcg/actuation nasal spray,suspension (Flonase Allergy Relief) ipratropium 0.5 mg-albuterol 3 mg 3 ml inhalation QID COPD 07/17/24 08/04/24 (2.5 mg base)/3 mL nebulization exacerbation/wheezing #180 mL soln potassium chloride 20 mEq 20 meq PO DAILY #90 tabs 07/17/24 08/04/24 tablet,extended release(part/cryst) (Klor-Con M) furosemide 80 mg tablet 80 mg PO BID@0830,1600 #60 tabs 07/26/24 08/04/24 pantoprazole 20 mg tablet,delayed 20 mg PO DAILY #90 tabs 07/26/24 08/04/24 release sertraline 50 mg tablet 50 mg PO DAILY #90 tabs 07/26/24 08/04/24 Previous Rx's ?Medication ?Instructions ?Recorded betamethasone, augmented 0.05 % 1 applic topical BID PRN allergic 06/20/21 lotion reaction #60 mL levothyroxine 200 mcg tablet 200 mcg PO DAILY #90 tabs 02/15/24 ferrous sulfate 325 mg (65 mg 325 mg PO Q OTHER DAY #15 tabs 04/12/24 iron) tablet norethindrone acetate 5 mg tablet 10 mg (2 x 5 mg) PO BID #180 tabs 04/12/24 alclometasone 0.05 % topical cream 1 applic topical BID PRN itching 04/17/24 #45 grams ketoconazole 2 % topical cream 1 applic topical BID PRN facial 04/17/24 rash #60 grams L. acidophilus,casei,rhamnosus 50 1 cap PO DAILY #4 caps 06/04/24 billion cell capsule,delayed release (BiomePRO) nystatin 100,000 unit/gram topical 1 applic topical BID intertrigo 06/04/24 powder #30 grams tirzepatide (weight loss) 2.5 2.5 mg (0.5 mL) subcut QWEEK #2 mL 06/12/24 mg/0.5 mL subcutaneous pen injector (Zepbound) doxycycline hyclate 100 mg capsule 100 mg PO BID #6 caps 06/29/24 prednisone 20 mg tablet 40 mg (2 x 20 mg) PO DAILY #6 tabs 06/29/24 cephalexin 500 mg capsule 500 mg PO Q8H #15 caps 07/01/24 albuterol sulfate 90 mcg/actuation 1 - 2 puff inhalation Q6H PRN ##1 07/17/24 aerosol inhaler fluticasone propionate 50 1 spray NS DAILY ##1 07/17/24 mcg/actuation nasal spray,suspension (Flonase Allergy Relief) ipratropium 0.5 mg-albuterol 3 mg 3 ml inhalation QID COPD 07/17/24 (2.5 mg base)/3 mL nebulization exacerbation/wheezing #180 mL soln potassium chloride 20 mEq 20 meq PO DAILY #90 tabs 07/17/24 tablet,extended release(part/cryst) (Klor-Con M) furosemide 80 mg tablet 80 mg PO BID@0830,1600 #60 tabs 07/26/24 pantoprazole 20 mg tablet,delayed 20 mg PO DAILY #90 tabs 07/26/24 release sertraline 50 mg tablet 50 mg PO DAILY #90 tabs 07/26/24 Allergies Allergy/AdvReac Type Severity Reaction Status Date / Time hydrocodone Allergy Severe ITCHING Verified 08/04/24 17:36 morphine Allergy Mild PRURITIS Verified 08/04/24 17:36 oxycodone Allergy Mild ITCHING Verified 08/04/24 17:36 General Stated Complaint: SOB REUBEN: 3 Review of Systems Narrative: See HPI Exam Const General: cooperative and in distress respiratory Nutritional Appearance: obese Orientation: alert and oriented x3 HENMT Face and sinus: normal facial exam Mouth: moist mucous membranes Resp Effort & Inspection: labored, tachypneic and uses accessory muscles Auscultation: wheezes (Coarse wheezes throughout) expiratory wheezes and inspiratory wheezes Cardio Rate: regular rate Rhythm: regular rhythm GI Inspection: normal to inspection, non-distended and obesity Palpation: soft, not firm, no guarding and nontender Neuro General: patient alert, patient oriented x3 and tone normal Extrem General: pedal edema bilaterally Course Vital Signs Vital signs: Vital Signs Pulse 85 08/04/24 17:30 Respiratory Rate 36 H 08/04/24 17:30 Pulse Oximetry 87 L 08/04/24 17:30 Pulse 85 08/04/24 17:30 Respiratory Rate 36 H 08/04/24 17:30 Pulse Oximetry 87 L 08/04/24 17:30 Oxygen Delivery Method Nasal Cannula 08/04/24 17:30 Oxygen Flow Rate 3 08/04/24 17:30 Pain Level 3 08/04/24 17:30 Medical Decision Making Imaging Data Radiologic Study: Radiologist's impression: PROCEDURE INFORMATION: Exam: XR Chest Exam date and time: 08/04/2024 6:56 PM Age: 69 years old Clinical indication: Cough and shortness of breath; Patient HX: SOB, cough, L lower rib pain TECHNIQUE: Imaging protocol: Radiologic exam of the chest. Views: 2 views. COMPARISON: CR XR PORTABLE CHEST AP 08/04/2024 6:03 PM FINDINGS: Lungs: No discrete parenchymal lung mass or consolidation detected. Pleural spaces: No pneumothorax with question of pleural fluid seen layering in the region of the minor fissure Heart/Mediastinum: The cardiac silhouette is enlarged and there is persistent vascular congestion with some indistinctness of vascular margins which may reflect an element of congestive failure/fluid overload. Bones/joints: No acute osseous lesions are detected. IMPRESSION: The cardiac silhouette is enlarged and there is persistent vascular congestion with some indistinctness of vascular margins which may reflect an element of congestive failure/fluid overload. Correlation with clinical data is necessary Quality:SDOH Health Related Social Needs: Health related social needs transportation insecurity( Z59.82) PFSH All Active Problems Elevated liver enzymes (Acute) Asymptomatic bacteriuria (Acute) Sepsis (Acute) CHF (congestive heart failure) (Chronic) Atrial fibrillation (Chronic) COPD (chronic obstructive pulmonary disease) (Chronic) Acute and chronic respiratory failure (Acute) Elevated white blood cell count (Acute) Abnormal liver enzymes (Acute) Chronic obstructive pulmonary disease with acute exacerbation (Acute) Exertional shortness of breath (Acute) Heart failure with preserved ejection fraction (Acute) Wound dehiscence (Acute) Thickened endometrium (Acute) Postmenopausal bleeding (Acute) COPD (chronic obstructive pulmonary disease) (Acute) Laceration of dobson (Acute) GERD (gastroesophageal reflux disease) (Chronic) had negative barium esophagram in 11/2022. Anxiety (Chronic) Venous stasis dermatitis (Acute) Chronic headaches (Chronic) Recent Neurology consult for possible papilledema. Urinary incontinence (Chronic) On Detrol Recurrent UTI (Chronic) Right ventricular dysfunction (Chronic) Knee pain, bilateral (Chronic 07/23/14) s/p bilat TKR (left infected with mult surg and decreased mobility) Morbid obesity (Acute 04/05/13) Sensorineural hearing loss, bilateral (Chronic 08/29/13) Advance directive on file (Acute) Low back pain with sciatica (Chronic 05/03/14) CT at [facility] L34 spinal stenosis Varicose veins of lower extremity (Chronic) Depression (Chronic) Grief at loss of child (Acute) Chronic respiratory failure with hypoxia and hypercapnia (Chronic) home BiPap Status post total bilateral knee replacement (Acute) Sprain of scapholunate ligament (Acute 03/21/19) DAVID (obstructive sleep apnea) (Chronic) on BiPap Hyperglycemia (Acute) Mixed conductive and sensorineural hearing loss of both ears (Acute) Right carpal tunnel syndrome (Acute) Arthritis of right hand (Acute) Impingement of right ulnar nerve (Acute) Dermoid cyst of neck (Acute) Hypothyroidism (Chronic) Microcalcifications of the breast (Acute) Neuropathy of left hand (Acute) Neuropathy of right hand (Acute) Bilateral carpal tunnel syndrome (Acute) Medical History UTI (urinary tract infection) Abnormal urinalysis Lymphedema Community acquired pneumonia Pneumonia Hx pulmonary embolism (~2015) treated with lovenox x 3 months Surgical History Status post thyroidectomy History of fasciotomy History of Surgical Procedure a. Right and left toal knee replacements. b. Left knee has been repeatedly operated on with slava surgies, three replacements. Replacement of total knee joint Bilateral; left-became [id number] surgeries Fasciotomy, Foot (~1996) LEFT Family History Mother Diabetes Personal history of malignant neoplasm LUNG Father Personal history of malignant neoplasm BRAIN Grandfather No problems noted. Grandfather No problems noted. Grandmother No problems noted. Grandmother No problems noted. Social History Smoking/Tobacco Use Status: Former Tobacco Use tobacco type: cigarettes Quit Date: 01/21/21 Second Hand Exposure: Yes Smoking risk assessment performed?: Yes Alcohol Intake: never Drug use: Never Substance use type: does not use Counseling given: No Housing: apartment Communication Needs: Hard of Hearing and Corrective Lenses Pets and animals: Yes Pets and animals: cat(s) Sexually active: Yes Current gender identity: female What is your relationship status?: never How often do you talk on the phone with friends or family?: decline to answer How often do you get together with friends or relatives?: decline to answer How often do you attend episcopal or confucianist services?: decline to answer Do you belong to any clubs or organized social groups?: no Panel score (0-1 are the most socially isolated patients): 0 Seatbelt use: never Do you feel safe at home: Yes Do you feel safe in your relationship?: Yes
[2024-08-04] MEDS: Albuterol/Ipratropium 3 ML UPD VIAL 9 ML UPD (17:49)
[2024-08-04 18:01] LABS: BE (Venous) 9 mmol/L (-2-3); HCO3 (Venous) 33 mmol/L (23-28); O2 Sat (Venous) 80 %; TCO2 (Venous) 30 mmol/L (24-29); pCO2 (Venous) 52 mmHg (41-51); pH (Venous) 7.41 (7.31-7.41); pO2 (Venous) 44 mmHg
[2024-08-04 18:02] LABS: Abs Immature Grans 0.06 10^3/uL (0.0-0.06); Absolute Basophil Count 0.06 10^3/uL (0.0-0.2); Absolute Eosinophil Count 0.18 10^3/uL (0.0-0.7); Absolute Lymphocyte Count 1.71 10^3/uL (1.2-3.4); Absolute Monocyte Count 0.74 10^3/uL (0.1-0.8); Basophils % 0.5 %; Eosinophils % 1.6 %; HCT 37.5 % (36.0-46.0); HGB 11.8 g/dL (11.2-15.7); Immature Grans % 0.5 %; Lymphocytes % 15.4 %; MCH 26.7 pg (27.0-33.0); MCHC 31.5 % (32.0-36.0); MCV 85 fL (80-95); MPV 9.9 fL (8.0-11.0); Monocytes % 6.7 %; Neutrophils % 75.3 %; Platelet Count 431 10^3/uL (130-400); RBC 4.42 10^6/uL (3.93-5.22); RDW 17.5 % (11.7-14.6); RDW-SD 54.6 fL; WBC 11.11 10^3/uL (4.4-10.8)
[2024-08-04 18:03] LABS: Absolute Neutrophil Count 8.37 10^3/uL (1.2-6.7)
[2024-08-04] MEDS: methylPREDNISolone SUCC 125 MG VIAL IVP (18:05)
--- NOTE | 2024-08-04 18:05 | DI.RAD_ITS ---
Exam(s) XR PORTABLE CHEST AP EXAM: XR PORTABLE CHEST AP CLINICAL HISTORY: pui, trouble breathing per provider TECHNIQUE: 2D digital imaging was performed of the chest. One image was obtained. An AP view was ob tained. COMPARISON: CR XR PORTABLE CHEST AP from 07/03/2024 FINDINGS: MEDIASTINUM: Normal. HEART: The heart is enlarged. PULMONARY VASCULATURE: There is prominence of the pulmonary vasculature suggesting fluid overload. LUNGS: No focal consolidating infiltrates are seen. PLEURAL SPACE: No pleural effusion or pneumothorax. BONE:Within normal limits for the patient's age. OTHER FINDINGS:Normal. IMPRESSION: Cardiomegaly and prominence of the pulmonary vasculature suggesting fluid overload. DATA REPOSITORY: RADIATION DOSE DELIVERED:
[2024-08-04] MEDS: Normal Saline Flush 10 ML SYR IVP ×2 (18:14→23:49)
[2024-08-04 18:34] LABS: ALT 78 U/L (14-59); AST 59 U/L (15-37); Albumin 2.4 g/dL (3.4-5.0); Alkaline Phosphatase 74 U/L (46-116); Anion Gap 8.8 mmol/L (3-11); BUN 10 mg/dL (7-18); CO2 33.2 mmol/L (21.0-32.0); CREATININE 0.9 mg/dL (0.55-1.02); Calcium 8.1 mg/dL (8.5-10.1); Chloride 100 mmol/L (98-107); Estimated GFR 69.64 (mL/min/1.73m2); Glucose 110 mg/dL (74-106); Magnesium 1.7 mg/dL (1.8-2.4); Potassium 3.2 mmol/L (3.5-5.1); Sodium 142 mmol/L (136-145); Total Protein 7.4 g/dL (6.4-8.2)
[2024-08-04 18:39] LABS: Troponin I 14 ng/L (<or=51)
--- NOTE | 2024-08-04 19:01 | DI.RAD_ITS ---
Exam(s) XR CHEST 2V PA LATERAL EXAM: XR CHEST 2V PA LATERAL CLINICAL HISTORY: SOB, cough, L lower rib pain TECHNIQUE: 2D digital imaging was performed of the chest. Two images were obtained. PA and lateral views were obtained. COMPARISON: CR,XR XR PORTABLE CHEST AP from 08/04/2024 FINDINGS: Examination is limited by patient body habitus and poor inspiration. MEDIASTINUM: Normal. HEART: The heart is enlarged. PULMONARY VASCULATURE: There is prominence of the pulmonary vasculature. LUNGS: Prominent lung markings are present bilaterally which may represent pulmonary edema. No focal consolidating infiltrates are seen. PLEURAL SPACE: No pleural effusion or pneumothorax. BONE:Within normal limits for the patient's age. OTHER FINDINGS:Normal. IMPRESSION: Findings suggestive of fluid overload/congestive heart failure. DATA REPOSITORY: RADIATION DOSE DELIVERED:
[2024-08-04 19:07] LABS: COVID-19 PCR Negative (Negative); Influenza A PCR Negative (Negative); Influenza B PCR Negative (Negative); RSV PCR Negative (Negative)
[2024-08-04 19:08] LABS: Source NASOPHARYNX
--- NOTE | 2024-08-04 19:20 | W.PM.HP.N ---
Date of service: 08/04/24 Time of Service: 19:20 Assessment and Plan Assessment and plan (1) COPD (chronic obstructive pulmonary disease): Status: Chronic Assessment and plan: COPD exacerbation, and clinically at least a bronchitis, possibly underlying pneumonia. Aside from continuing steroids and updrafts will add antibiotics (Rocephin/Zithro). Usual meds as is otherwise. Reviewed ADs, requests Full Code. History of Present Illness History of Present Illness Chief Complaint: COUGH, sob Narrative: 69 FEMALE WITH H/O copd, chf , on home O2 3L-- HERE WITH SEVERAL DAYS OF sob AND COUGH PRODUCTIVE OF GREEN SPUTUM. nO FEVER OR CHILLS, NO cp, NO EXPOSURE TO SIMILAR ILLNESS. hERE IN er FINDINGS OF NOTE FOR initial sats in 80s, diffuse wheeze, white count 11 and CXR -- portable underpenetrated, PA poor inspiration -- difficult to interpret, but to my read no definite infiltrate (and appears similar to prior), cardiomegaly and possible CHF. Patient was given duonebs and steroids and reports she feels definite improvement. Current sats low 90s on 5L. Viral swab triple negative. I was asked to evaluate for admission. Review of Systems Narrative: per HPI PFSH All Active Problems Elevated liver enzymes (Acute) Asymptomatic bacteriuria (Acute) Sepsis (Acute) CHF (congestive heart failure) (Chronic) Atrial fibrillation (Chronic) COPD (chronic obstructive pulmonary disease) (Chronic) Acute and chronic respiratory failure (Acute) Elevated white blood cell count (Acute) Abnormal liver enzymes (Acute) Chronic obstructive pulmonary disease with acute exacerbation (Acute) Exertional shortness of breath (Acute) Heart failure with preserved ejection fraction (Acute) Wound dehiscence (Acute) Thickened endometrium (Acute) Postmenopausal bleeding (Acute) COPD (chronic obstructive pulmonary disease) (Acute) Laceration of dobson (Acute) GERD (gastroesophageal reflux disease) (Chronic) had negative barium esophagram in 11/2022. Anxiety (Chronic) Venous stasis dermatitis (Acute) Chronic headaches (Chronic) Recent Neurology consult for possible papilledema. Urinary incontinence (Chronic) On Detrol Recurrent UTI (Chronic) Right ventricular dysfunction (Chronic) Knee pain, bilateral (Chronic 07/23/14) s/p bilat TKR (left infected with mult surg and decreased mobility) Morbid obesity (Acute 04/05/13) Sensorineural hearing loss, bilateral (Chronic 08/29/13) Advance directive on file (Acute) Low back pain with sciatica (Chronic 05/03/14) CT at [facility] [place] L34 spinal stenosis Varicose veins of lower extremity (Chronic) Depression (Chronic) Grief at loss of child (Acute) Chronic respiratory failure with hypoxia and hypercapnia (Chronic) home BiPap Status post total bilateral knee replacement (Acute) Sprain of scapholunate ligament (Acute 03/21/19) DAVID (obstructive sleep apnea) (Chronic) on BiPap Hyperglycemia (Acute) Mixed conductive and sensorineural hearing loss of both ears (Acute) Right carpal tunnel syndrome (Acute) Arthritis of right hand (Acute) Impingement of right ulnar nerve (Acute) Dermoid cyst of neck (Acute) Hypothyroidism (Chronic) Microcalcifications of the breast (Acute) Neuropathy of left hand (Acute) Neuropathy of right hand (Acute) Bilateral carpal tunnel syndrome (Acute) Medical History UTI (urinary tract infection) Abnormal urinalysis Lymphedema Community acquired pneumonia Pneumonia Hx pulmonary embolism (~2015) treated with lovenox x 3 months Surgical History Status post thyroidectomy History of fasciotomy History of Surgical Procedure a. Right and left toal knee replacements. b. Left knee has been repeatedly operated on with slava surgies, three replacements. Replacement of total knee joint Bilateral; left-became emenvrzr-rhbnuos-qylwlesc surgeries Fasciotomy, Foot (~1996) LEFT Family History Mother Diabetes Personal history of malignant neoplasm LUNG Father Personal history of malignant neoplasm BRAIN Grandfather No problems noted. Grandfather No problems noted. Grandmother No problems noted. Grandmother No problems noted. Social History Smoking/Tobacco Use Status: Former Tobacco Use tobacco type: cigarettes Quit Date: 01/21/21 Second Hand Exposure: Yes Smoking risk assessment performed?: Yes Alcohol Intake: never Drug use: Never Substance use type: does not use Counseling given: No Housing: apartment Communication Needs: Hard of Hearing and Corrective Lenses Pets and animals: Yes Pets and animals: cat(s) Sexually active: Yes Current gender identity: female What is your relationship status?: never How often do you talk on the phone with friends or family?: decline to answer How often do you get together with friends or relatives?: decline to answer How often do you attend worship or hoahaoism services?: decline to answer Do you belong to any clubs or organized social groups?: no Panel score (0-1 are the most socially isolated patients): 0 Seatbelt use: never Do you feel safe at home: Yes Do you feel safe in your relationship?: Yes Meds Allergies and Home Medications Allergies Allergy/AdvReac Type Severity Reaction Status Date / Time hydrocodone Allergy Severe ITCHING Verified 08/04/24 17:36 morphine Allergy Mild PRURITIS Verified 08/04/24 17:36 oxycodone Allergy Mild ITCHING Verified 08/04/24 17:36 Home Medications ?Medication ?Instructions ?Recorded ?Confirmed ?Type ascorbic acid (vitamin C) 1,000 mg 1,000 mg PO DAILY 11/25/12 08/04/24 History tablet inhalational spacing device ##1 12/21/13 08/04/24 History (Aerochamber Mini) Bipap 5 l IN DIRECTED 07/23/14 08/04/24 History betamethasone, augmented 0.05 % 1 applic topical BID PRN allergic 06/20/21 08/04/24 Rx lotion reaction #60 mL levothyroxine 200 mcg tablet 200 mcg PO DAILY #90 tabs 02/15/24 08/04/24 Rx oxygen 3 l intranasal DIRECTED 04/02/24 08/04/24 History ferrous sulfate 325 mg (65 mg 325 mg PO Q OTHER DAY #15 tabs 04/12/24 08/04/24 Rx iron) tablet norethindrone acetate 5 mg tablet 10 mg (2 x 5 mg) PO BID #180 tabs 04/12/24 08/04/24 Rx alclometasone 0.05 % topical cream 1 applic topical BID PRN itching 04/17/24 08/04/24 Rx #45 grams ketoconazole 2 % topical cream 1 applic topical BID PRN facial 04/17/24 08/04/24 Rx rash #60 grams L. acidophilus,casei,rhamnosus 50 1 cap PO DAILY #4 caps 06/04/24 08/04/24 Rx billion cell capsule,delayed release (BiomePRO) nystatin 100,000 unit/gram topical 1 applic topical BID intertrigo 06/04/24 08/04/24 Rx powder #30 grams tirzepatide (weight loss) 2.5 2.5 mg (0.5 mL) subcut QWEEK #2 mL 06/12/24 08/04/24 Rx mg/0.5 mL subcutaneous pen injector (Zepbound) doxycycline hyclate 100 mg capsule 100 mg PO BID #6 caps 06/29/24 08/04/24 Rx prednisone 20 mg tablet 40 mg (2 x 20 mg) PO DAILY #6 tabs 06/29/24 08/04/24 Rx cephalexin 500 mg capsule 500 mg PO Q8H #15 caps 07/01/24 08/04/24 Rx albuterol sulfate 90 mcg/actuation 1 - 2 puff inhalation Q6H PRN ##1 07/17/24 08/04/24 Rx aerosol inhaler fluticasone propionate 50 1 spray NS DAILY ##1 07/17/24 08/04/24 Rx mcg/actuation nasal spray,suspension (Flonase Allergy Relief) ipratropium 0.5 mg-albuterol 3 mg 3 ml inhalation QID COPD 07/17/24 08/04/24 Rx (2.5 mg base)/3 mL nebulization exacerbation/wheezing #180 mL soln potassium chloride 20 mEq 20 meq PO DAILY #90 tabs 07/17/24 08/04/24 Rx tablet,extended release(part/cryst) (Klor-Con M) furosemide 80 mg tablet 80 mg PO BID@0830,1600 #60 tabs 07/26/24 08/04/24 Rx pantoprazole 20 mg tablet,delayed 20 mg PO DAILY #90 tabs 07/26/24 08/04/24 Rx release sertraline 50 mg tablet 50 mg PO DAILY #90 tabs 07/26/24 08/04/24 Rx Exam Narrative Exam Narrative: 116/55, 92, 37, 19, 98% 5L (91 during visit). HEENT somewhat Cushingoid facies; neck supple; lungs diffuse wheeze; heart RRR; abdopmen soft and NT; extremities 4+ lymphedema bilateral; neuro Ox3, moves all 4s Results Labs 08/04/24 17:55 08/04/24 17:55 Labs: Laboratory Results - last 24 hr 08/04/24 08/04/24 17:55 18:28 WBC 11.11 H RBC 4.42 Hgb 11.8 Hct 37.5 MCV 85 MCH 26.7 L MCHC 31.5 L RDW 17.5 H Plt Count 431 H MPV 9.9 Immature Gran % 0.5 Neutrophils % 75.3 Lymphocytes % 15.4 Monocytes % 6.7 Eosinophils % 1.6 Basophils % 0.5 Nucleated RBC % 0.0 Absolute Neutrophils 8.37 H Absolute Lymphocytes 1.71 Absolute Monocytes 0.74 Absolute Eosinophils 0.18 Absolute Basophils 0.06 VBG pH 7.41 VBG pCO2 52 H VBG pO2 44 VBG HCO3 33 H VBG Total CO2 30 H VBG O2 Saturation 80 VBG Base Excess 9 H Sodium 142 Potassium 3.2 L Chloride 100 Carbon Dioxide 33.2 H Anion Gap 8.8 BUN 10 Creatinine 0.9 Est GFR (CKD-EPI 2020) 69.64 Glucose 110 H Calcium 8.1 L Magnesium 1.7 L Total Bilirubin 0.80 AST 59 H ALT 78 H Alkaline Phosphatase 74 Troponin I 14 Total Protein 7.4 Albumin 2.4 L COVID-19 Source NASOPHARYNX SARS-CoV-2 (PCR) Negative Influenza Type A (PCR) Negative Influenza Type B (PCR) Negative RSV (PCR) Negative Last Vital Signs Temp 37.0 C 08/04/24 17:37 Pulse 92 H 08/04/24 18:46 Resp 19 08/04/24 18:46 BP 116/55 L 08/04/24 18:46 Pulse Ox 98 08/04/24 18:46 Time Spent Time spent with Patient: 40-54 minutes Time was spent: preparing to see the patient(eg.review tests), obtaining and/or reviewing separately otained hiistory, ordering medications,tests, procedures, referring, communicating with other health career development specialist and indepentently interpreting results
[2024-08-04 19:29] LABS: Troponin I 11 ng/L (<or=51)
--- NOTE | 2024-08-04 19:53 | DI.VRAD_ITS ---
PROCEDURE INFORMATION: Exam: XR Chest Exam date and time: 08/04/2024 6:03 PM Age: 69 years old Clinical indication: Other: Trouble breathing per provider TECHNIQUE: Imaging protocol: Radiologic exam of the chest. Views: 1 view. COMPARISON: CR XR PORTABLE CHEST AP 07/03/2024 5:42 PM FINDINGS: Lungs: No discrete parenchymal lung mass or consolidation detected. Pleural spaces: No pneumothorax or large pleural effusion is seen. Heart/Mediastinum: The cardiac silhouette is enlarged and there is interval increase in vascular congestion which may reflect an element of congestive failure/fluid overload. Bones/joints: No acute osseous lesions are detected. IMPRESSION: The cardiac silhouette is enlarged and there is interval increase in vascular congestion which may reflect an element of congestive failure/fluid overload. Correlation with clinical data is necessary. Dictated and Authenticated by: Сергей Zaragoza MD. Ordering:BIANCA Atkins MD
--- NOTE | 2024-08-04 19:56 | DI.VRAD_ITS ---
PROCEDURE INFORMATION: Exam: XR Chest Exam date and time: 08/04/2024 6:56 PM Age: 69 years old Clinical indication: Cough and shortness of breath; Patient HX: SOB, cough, L lower rib pain TECHNIQUE: Imaging protocol: Radiologic exam of the chest. Views: 2 views. COMPARISON: CR XR PORTABLE CHEST AP 08/04/2024 6:03 PM FINDINGS: Lungs: No discrete parenchymal lung mass or consolidation detected. Pleural spaces: No pneumothorax with question of pleural fluid seen layering in the region of the minor fissure Heart/Mediastinum: The cardiac silhouette is enlarged and there is persistent vascular congestion with some indistinctness of vascular margins which may reflect an element of congestive failure/fluid overload. Bones/joints: No acute osseous lesions are detected. IMPRESSION: The cardiac silhouette is enlarged and there is persistent vascular congestion with some indistinctness of vascular margins which may reflect an element of congestive failure/fluid overload. Correlation with clinical data is necessary. Dictated and Authenticated by: Сергей Zaragoza MD. Ordering:BIANCA Atkins MD
--- NOTE | 2024-08-04 20:57 | W.PC.ACHO ---
Registration Status: Primary Language: Preferred Language: ED Information & Data Chief Complaint SOB 08/04/24 17:39 Triage Note trouble breathing started 08/04/24 17:30 since yesterday bringing up thick green sputum Medical / Surgical History (Last Reviewed 08/04/24 @ 19:27 by Sunny Ferrer MD) UTI (urinary tract infection) Abnormal urinalysis Lymphedema Community acquired pneumonia Pneumonia Hx pulmonary embolism (~2015) (Last Reviewed 08/04/24 @ 19:27 by Sunny Ferrer MD) Status post thyroidectomy History of fasciotomy History of Surgical Procedure Replacement of total knee joint Fasciotomy, Foot (~1996) Most Recent Vital Signs Temperature 37.0 C 08/04/24 17:37 Temperature Source Tympanic 08/04/24 17:37 Pulse 86 08/04/24 20:16 Pulse 89 08/04/24 20:20 Respiratory Rate 19 08/04/24 20:20 Respiratory Effort Short of Breath, Labored, Incrsd Work of Breathing 08/04/24 18:28 Respiratory Pattern Irregular 08/04/24 18:28 Blood Pressure 179/65 H 08/04/24 20:16 Blood Pressure Mean 87 08/04/24 20:16 Blood Pressure Position Sitting 08/04/24 17:37 Pulse Oximetry 92 08/04/24 20:20 Oxygen Delivery Method Aerosol Mask 08/04/24 17:49 Oxygen Flow Rate 3 08/04/24 17:37 Pain Level 3 08/04/24 17:37 Allergies hydrocodone Allergy (Severe, Verified 08/04/24 17:36) ITCHING morphine Allergy (Mild, Verified 08/04/24 17:36) PRURITIS oxycodone Allergy (Mild, Verified 08/04/24 17:36) ITCHING Precautions Isolation PUI 08/04/24 17:35 Active Medications Generic Name Dose Route Start Last Admin Trade Name Freq PRN Reason Stop Dose Admin Albuterol/Ipratropium 9 ml 08/04/24 17:36 08/04/24 17:49 Albuterol/Ipratropium 3 Ml Upd Vial UPD 9 ml Q3H PRN PRN Administration Sodium Chloride 0 ml 08/04/24 17:36 08/04/24 18:14 Normal Saline Flush 10 Ml Syr IVP 10 ml PRN PRN Administration IV IV Catheter Type [Right Saline Lock Forearm] IV Catheter Gauge [Right 20 Forearm] Diet Orders Category Date Time Status Low Sodium [DIET] Nutrition 08/05/24 Breakfast Ordered Diagnostics 08/04/24 08/04/24 08/04/24 Range/Units 21:17 19:00 18:28 WBC (4.4-10.8) 10^3/uL RBC (3.93-5.22) 10^6/uL Hgb (11.2-15.7) g/dL Hct (36.0-46.0) % MCV (80-95) fL MCH (27.0-33.0) pg MCHC (32.0-36.0) % RDW (11.7-14.6) % Plt Count (130-400) 10^3/uL MPV (8.0-11.0) fL Immature Gran % % Neutrophils % % Lymphocytes % % Monocytes % % Eosinophils % % Basophils % % Nucleated RBC % (0.0-0.3) % Absolute Neutrophils (1.2-6.7) 10^3/uL Absolute Lymphocytes (1.2-3.4) 10^3/uL Absolute Monocytes (0.1-0.8) 10^3/uL Absolute Eosinophils (0.0-0.7) 10^3/uL Absolute Basophils (0.0-0.2) 10^3/uL VBG pH (7.31-7.41) VBG pCO2 (41-51) mmHg VBG pO2 mmHg VBG HCO3 (23-28) mmol/L VBG Total CO2 (24-29) mmol/L VBG O2 Saturation % VBG Base Excess (-2-3) mmol/L Sodium (136-145) mmol/L Potassium (3.5-5.1) mmol/L Chloride (98-107) mmol/L Carbon Dioxide (21.0-32.0) mmol/L Anion Gap (3-11) mmol/L BUN (7-18) mg/dL Creatinine (0.55-1.02) mg/dL Est GFR (CKD-EPI 2020) (mL/min/1.73m2) Glucose (74-106) mg/dL Calcium (8.5-10.1) mg/dL Magnesium (1.8-2.4) mg/dL Total Bilirubin (0.2-1.0) mg/dL AST (15-37) U/L ALT (14-59) U/L Alkaline Phosphatase (46-116) U/L Troponin I Pending 11 (<or=51) ng/L Total Protein (6.4-8.2) g/dL Albumin (3.4-5.0) g/dL COVID-19 Source NASOPHARYNX SARS-CoV-2 (PCR) Negative (Negative) Influenza Type A (PCR) Negative (Negative) Influenza Type B (PCR) Negative (Negative) RSV (PCR) Negative (Negative) 08/04/24 Range/Units 17:55 WBC 11.11 H (4.4-10.8) 10^3/uL RBC 4.42 (3.93-5.22) 10^6/uL Hgb 11.8 (11.2-15.7) g/dL Hct 37.5 (36.0-46.0) % MCV 85 (80-95) fL MCH 26.7 L (27.0-33.0) pg MCHC 31.5 L (32.0-36.0) % RDW 17.5 H (11.7-14.6) % Plt Count 431 H (130-400) 10^3/uL MPV 9.9 (8.0-11.0) fL Immature Gran % 0.5 % Neutrophils % 75.3 % Lymphocytes % 15.4 % Monocytes % 6.7 % Eosinophils % 1.6 % Basophils % 0.5 % Nucleated RBC % 0.0 (0.0-0.3) % Absolute Neutrophils 8.37 H (1.2-6.7) 10^3/uL Absolute Lymphocytes 1.71 (1.2-3.4) 10^3/uL Absolute Monocytes 0.74 (0.1-0.8) 10^3/uL Absolute Eosinophils 0.18 (0.0-0.7) 10^3/uL Absolute Basophils 0.06 (0.0-0.2) 10^3/uL VBG pH 7.41 (7.31-7.41) VBG pCO2 52 H (41-51) mmHg VBG pO2 44 mmHg VBG HCO3 33 H (23-28) mmol/L VBG Total CO2 30 H (24-29) mmol/L VBG O2 Saturation 80 % VBG Base Excess 9 H (-2-3) mmol/L Sodium 142 (136-145) mmol/L Potassium 3.2 L (3.5-5.1) mmol/L Chloride 100 (98-107) mmol/L Carbon Dioxide 33.2 H (21.0-32.0) mmol/L Anion Gap 8.8 (3-11) mmol/L BUN 10 (7-18) mg/dL Creatinine 0.9 (0.55-1.02) mg/dL Est GFR (CKD-EPI 2020) 69.64 (mL/min/1.73m2) Glucose 110 H (74-106) mg/dL Calcium 8.1 L (8.5-10.1) mg/dL Magnesium 1.7 L (1.8-2.4) mg/dL Total Bilirubin 0.80 (0.2-1.0) mg/dL AST 59 H (15-37) U/L ALT 78 H (14-59) U/L Alkaline Phosphatase 74 (46-116) U/L Troponin I 14 (<or=51) ng/L Total Protein 7.4 (6.4-8.2) g/dL Albumin 2.4 L (3.4-5.0) g/dL COVID-19 Source SARS-CoV-2 (PCR) (Negative) Influenza Type A (PCR) (Negative) Influenza Type B (PCR) (Negative) RSV (PCR) (Negative) Intake and Output - 24 Hour Total 08/04/24 17:25 thru 08/04/24 17:55 Intake Total 10 Balance 10 Weight 176.901 kg Intake: IV 10 Falls Risk Assessment History of Falls Previous History 08/04/24 17:37 Contributing Factors No Factors 08/04/24 17:37 Ambulatory Aids Independent 08/04/24 17:37 Tubes/Lines None 08/04/24 17:37 Gait Evaluation No gait disturbance 08/04/24 17:37 Cognition No cognitive impairment 08/04/24 17:37 Fall Total Score 15 08/04/24 17:37 Level of Risk Standard/Low Risk 08/04/24 17:37 Problems (Last Reviewed 08/04/24 @ 19:27 by Sunny Ferrer MD) COPD (chronic obstructive pulmonary disease) (Chronic) v v v v v v v v v Sending and/or Receiving Nurses: Please use comment section below to note any information pertinent to the patient hand-off not included above. Information / Comments: Pt being admitted for COPD exacerbation. pt has productive cough with thick green sputum. c/o left posterior rib pain, has pedal edema with history of lymphedema. pt is on 3L/min O2 with saturation of 93%. BP elevated at 175/65. has recieved multiple doses of duonebs and solumedrol. testing to be preforms to r/o pneumonia or bronchitis. pt has 20g in right forearm. pt has 2 IV antibiotics ordered but have not been started at this time. pt will go to room 207. Report received from: [facility]
[2024-08-04 21:51] LABS: Troponin I 11 ng/L (<or=51)
[2024-08-04] MEDS: Albuterol/Ipratropium 3 ML UPD VIAL UPD (22:29)
[2024-08-05] VITALS (13 sets, daily range): BP systolic 112–124; BP diastolic 52–60; PULSE 70–90; RESP 2–22; TEMP 36.7–37.1; O2SAT 90–95
[2024-08-05] MEDS: cefTRIAXone 1,000 MG in Normal Saline 50 ML 100 MG IVPB (00:50)
[2024-08-05] MEDS: Norethindrone 5 MG TAB 10 MG PO ×3 (02:05→20:02)
[2024-08-05] MEDS: Normal Saline Flush 10 ML SYR IVP ×5 (02:15→20:02)
[2024-08-05] MEDS: methylPREDNISolone SUCC 40 MG VIAL IVP (02:15)
[2024-08-05] MEDS: AZITHROMYCIN 500 MG in Normal Saline 250 ML 250 MG IVPB (02:57)
[2024-08-05] MEDS: Albuterol/Ipratropium 3 ML UPD VIAL UPD ×4 (03:47→21:13)
[2024-08-05] MEDS: Levothyroxine 100 MCG TAB 200 MCG PO (08:29)
--- NOTE | 2024-08-05 08:58 | INITIAL_ITS ---
Date of service: 08/05/24 Time of Service: 08:58 Care Management Initial Assmt Initial Assessment Reason for Hospitalization: COPD exacerbation Functional Status/Living Situation Patient Presentation: Radha is chronically on home O2 at 3L. She presented to the ER yesterday evening with c/o several days of SOB and a cough productive of green sputum. Was found to have CHF requiring diuresis. Radha was sleeping each of 3 times CM went to visit with her today, but is well known to this CM. CM will let her rest today, and check in tomorrow. Town of Residence: [facility] Resides with: Other (boyfriend, Galo) Significant Other/Family: Local ((3 children and 3 grandchildren, most of whom live locally. Sister in [facility], whom she sees often and speaks to every day.)) Natural Supports: Family, Galo and her next door neighbor Employment Status: Disabled Instrumental Activities of Daily Living (ADLs): Independent Activities/Hobbies/SocialSupport: Radha really likes to cook. She uses her Instapot and her airfryer alot, as she is not able to stand. She likes to try new recipes, and loves having people over to eat. She loves caring for her granddaughter, Maria Luz. Medications Medication Management: No Issues/Barriers identified Physical Functioning/Mobility Assistive Device: motorized wheel chair Advance Directives Advance Directives: Do you have an Advance Directive: Y 04/11/24 07:49 AD On File at [facility]: Y 04/11/24 07:49 Date Asked 07/08/24 07/23/24 16:28 AD Date Reviewed 05/30/24 05/30/24 11:06 COLST On File at [facility] COLST Date Scanned Code Status Resuscitation Status Full Code Code Status Comment: Per H&P 08/04 AD discussed and requests full code Insurance Coverage/Financial Issues Insurance: [id number] Mcr Replacement, Medicaid Financial Issues: denies Care Team Visit Care Team Role Provider Type Alphonso Murphy MD Primary Care Provider [facility] STAFF PHYSICIAN Milly Max Emergency Provider NURSE PRACTITIONER Sunny Ferrer MD Admit Provider [facility] STAFF PHYSICIAN Attending Provider Discharge Potential Discharge Needs: Consult Consult Services Needed: Pulmonary and PCP F/U Appt Anticipated Barriers to Discharge: None Identified Patient/Family Education Needs: Review discharge instructions, discuss Ask Me Three Transportation: Private vehicle (vs [facility] wheelchair van) Plan: Anticipate that Radha will be discharged within the next day or 2 with resumption of her home health services. Would like to add the [facility]. Radha will f/u with her PCP and continue per her prescribed plan of care. CM will continue to follow. PFSH All Active Problems (Updated 08/05/24 @ 09:57 by Marek Reyes MD) Acute exacerbation of CHF (congestive heart failure) (Acute) Elevated liver enzymes (Acute) Asymptomatic bacteriuria (Acute) Sepsis (Acute) CHF (congestive heart failure) (Chronic) Atrial fibrillation (Chronic) COPD (chronic obstructive pulmonary disease) (Chronic) Acute and chronic respiratory failure (Acute) Elevated white blood cell count (Acute) Abnormal liver enzymes (Acute) Chronic obstructive pulmonary disease with acute exacerbation (Acute) Exertional shortness of breath (Acute) Heart failure with preserved ejection fraction (Acute) Wound dehiscence (Acute) Thickened endometrium (Acute) Postmenopausal bleeding (Acute) COPD (chronic obstructive pulmonary disease) (Acute) Laceration of dobson (Acute) GERD (gastroesophageal reflux disease) (Chronic) had negative barium esophagram in 11/2022. Anxiety (Chronic) Venous stasis dermatitis (Acute) Chronic headaches (Chronic) Recent Neurology consult for possible papilledema. Urinary incontinence (Chronic) On Detrol Recurrent UTI (Chronic) Right ventricular dysfunction (Chronic) Knee pain, bilateral (Chronic 07/23/14) s/p bilat TKR (left infected with mult surg and decreased mobility) Morbid obesity (Acute 04/05/13) Sensorineural hearing loss, bilateral (Chronic 08/29/13) Advance directive on file (Acute) Low back pain with sciatica (Chronic 05/03/14) CT at [facility] L34 spinal stenosis Varicose veins of lower extremity (Chronic) Depression (Chronic) Grief at loss of child (Acute) Chronic respiratory failure with hypoxia and hypercapnia (Chronic) home BiPap Status post total bilateral knee replacement (Acute) Sprain of scapholunate ligament (Acute 03/21/19) DAVID (obstructive sleep apnea) (Chronic) on BiPap Hyperglycemia (Acute) Mixed conductive and sensorineural hearing loss of both ears (Acute) Right carpal tunnel syndrome (Acute) Arthritis of right hand (Acute) Impingement of right ulnar nerve (Acute) Dermoid cyst of neck (Acute) Hypothyroidism (Chronic) Microcalcifications of the breast (Acute) Neuropathy of left hand (Acute) Neuropathy of right hand (Acute) Bilateral carpal tunnel syndrome (Acute) Medical History UTI (urinary tract infection) Abnormal urinalysis Lymphedema Community acquired pneumonia Pneumonia Hx pulmonary embolism (~2015) treated with lovenox x 3 months Surgical History Status post thyroidectomy History of fasciotomy History of Surgical Procedure a. Right and left toal knee replacements. b. Left knee has been repeatedly operated on with slava surgies, three replacements. Replacement of total knee joint Bilateral; left-became jjzaystk-ezakpfm-yyunrguz surgeries Fasciotomy, Foot (~1996) LEFT Family History Mother Diabetes Personal history of malignant neoplasm LUNG Father Personal history of malignant neoplasm BRAIN Grandfather No problems noted. Grandfather No problems noted. Grandmother No problems noted. Grandmother No problems noted. Social History Smoking/Tobacco Use Status: Former Tobacco Use tobacco type: cigarettes Quit Date: 01/21/21 Second Hand Exposure: Yes Smoking risk assessment performed?: Yes Alcohol Intake: never Drug use: Never Substance use type: does not use Counseling given: No Housing: apartment Communication Needs: Hard of Hearing and Corrective Lenses Pets and animals: Yes Pets and animals: cat(s) Sexually active: Yes Current gender identity: female What is your relationship status?: never How often do you talk on the phone with friends or family?: decline to answer How often do you get together with friends or relatives?: decline to answer How often do you attend caodaism or jainism services?: decline to answer Do you belong to any clubs or organized social groups?: no Panel score (0-1 are the most socially isolated patients): 0 Seatbelt use: never Do you feel safe at home: Yes Do you feel safe in your relationship?: Yes Readmission Within the Past 30 Days Yes or No: No SDOH(Care Management) Screening Will the Patient Participate in the Screening?: Yes Do you worry about having a steady place to live?: no Problems where you live: no known problems In the past 12 months, have you had to go without electric, gas, oil or water in your home?: no Have you or anyone in your house had to go without enough food to eat?: no Has lack of transportation kept you from medical appointments or from doing things needed for daily living?: yes Has anyone in your support network made you feel unsafe for any reason?: no Social Determinants of Health Comments(SDOH Details): pt would like assistance with finding a recliner for her home that is suitable for her needs Health Related Social Needs Health related social needs: transportation insecurity(Z59.82) Anticipated HH Services Anticipated HH Services at Discharge [facility] Resumption, MANUFACTURING PROJECT MANAGER, OT, PT and RN.
[2024-08-05] MEDS: Azithromycin 250 MG TAB PO (09:51)
[2024-08-05] MEDS: Furosemide 80 MG TAB PO (09:51)
[2024-08-05] MEDS: Potassium Chloride 20 MEQ TABCR PO (09:51)
[2024-08-05] MEDS: Pantoprazole 20 MG TABCR PO (09:51)
[2024-08-05] MEDS: Sertraline 50 MG TAB PO (09:51)
[2024-08-05] MEDS: Ferrous Sulfate 325 MG TAB PO (09:51)
[2024-08-05] MEDS: predniSONE 20 MG TAB 40 MG PO (09:51)
[2024-08-05] MEDS: Lactobacillus Acidophilus CAP 1 CAP PO (09:51)
--- NOTE | 2024-08-05 09:51 | W.PM.PROGNOT ---
Date of Service Date of service: 08/05/24 Time of Service: 09:51 Assessment and Plan Assessment and plan (1) COPD exacerbation: Status: Inactive Assessment and plan: - History of COPD now with acute exacerbation -Status post IV methylprednisolone in the emergency department -Continue 40 mg prednisone daily -Was initially started on antibiotics for concern of community-acquired pneumonia, however chest x-ray shows fluid overload (see CHF exacerbation as noted below); will discontinue antibiotics at this time (2) Acute exacerbation of CHF (congestive heart failure): Status: Acute Assessment and plan: - History of HFrEF on last echo in March 2024 -Patient normally on 80 p.o. Lasix twice daily -Was not started on IV diuretic on admission, will start 80 mg IV Lasix twice daily -Strict I's and O's (3) Acute and chronic respiratory failure with hypoxia: Status: Resolved Assessment and plan: - Patient normally on 3 L nasal cannula -Has required up to 4 L nasal cannula -Wean oxygen as tolerated with goal 88 to 92% (4) Depressive disorder: Status: Inactive Assessment and plan: - Continue home SSRI (5) Morbid obesity: Status: Inactive Assessment and plan: - Encourage ongoing weight loss discussion with PCP (6) DAVID (obstructive sleep apnea): Status: Chronic Assessment and plan: - Continue at bedtime BiPAP Subjective Subjective Interval history since last seen: Patient states that she is feeling better as compared to admission has no other complaints or concerns at this time. Exam Narrative Exam Narrative: Well-appearing morbidly obese female sitting up at the edge of the bed and in no acute distress, ANO x 4, 4 L nasal cannula in place, heart regular rhythm, lungs diminished breath sounds in bilateral bases with minimal expiratory wheezing, abdomen morbidly obese, soft, nontender, nondistended, demarcated area on the left posterior medial calf with surrounding ecchymosis and blister with visible serous fluid underneath Objective Last Vital Signs Temp 98.2 F 08/05/24 08:03 Pulse 87 08/05/24 09:22 Resp 18 08/05/24 08:03 BP 124/57 L 08/05/24 08:03 Pulse Ox 90 L 08/05/24 09:22 Laboratory Results - last 24 hr 08/04/24 08/04/24 08/04/24 17:55 18:28 19:00 WBC 11.11 H RBC 4.42 Hgb 11.8 Hct 37.5 MCV 85 MCH 26.7 L MCHC 31.5 L RDW 17.5 H Plt Count 431 H MPV 9.9 Immature Gran % 0.5 Neutrophils % 75.3 Lymphocytes % 15.4 Monocytes % 6.7 Eosinophils % 1.6 Basophils % 0.5 Nucleated RBC % 0.0 Absolute Neutrophils 8.37 H Absolute Lymphocytes 1.71 Absolute Monocytes 0.74 Absolute Eosinophils 0.18 Absolute Basophils 0.06 VBG pH 7.41 VBG pCO2 52 H VBG pO2 44 VBG HCO3 33 H VBG Total CO2 30 H VBG O2 Saturation 80 VBG Base Excess 9 H Sodium 142 Potassium 3.2 L Chloride 100 Carbon Dioxide 33.2 H Anion Gap 8.8 BUN 10 Creatinine 0.9 Est GFR (CKD-EPI 2020) 69.64 Glucose 110 H Calcium 8.1 L Magnesium 1.7 L Total Bilirubin 0.80 AST 59 H ALT 78 H Alkaline Phosphatase 74 Troponin I 14 11 Total Protein 7.4 Albumin 2.4 L COVID-19 Source NASOPHARYNX SARS-CoV-2 (PCR) Negative Influenza Type A (PCR) Negative Influenza Type B (PCR) Negative RSV (PCR) Negative 08/04/24 21:29 WBC RBC Hgb Hct MCV MCH MCHC RDW Plt Count MPV Immature Gran % Neutrophils % Lymphocytes % Monocytes % Eosinophils % Basophils % Nucleated RBC % Absolute Neutrophils Absolute Lymphocytes Absolute Monocytes Absolute Eosinophils Absolute Basophils VBG pH VBG pCO2 VBG pO2 VBG HCO3 VBG Total CO2 VBG O2 Saturation VBG Base Excess Sodium Potassium Chloride Carbon Dioxide Anion Gap BUN Creatinine Est GFR (CKD-EPI 2020) Glucose Calcium Magnesium Total Bilirubin AST ALT Alkaline Phosphatase Troponin I 11 Total Protein Albumin COVID-19 Source SARS-CoV-2 (PCR) Influenza Type A (PCR) Influenza Type B (PCR) RSV (PCR) Time Spent with Patient Time Spent with Patient: >50 minutes Time was spent: preparing to see the patient(eg.review tests), obtaining and/or reviewing separately otained hiistory, ordering medications,tests, procedures, referring, communicating with other health school child care attendant, indepentently interpreting results, counseling the patient and care coordination
[2024-08-05] MEDS: Nystatin POWDER 60 GM JAR TP (09:54)
[2024-08-05] MEDS: Furosemide 100 MG/10 ML VIAL 80 MG IVP (16:17)
[2024-08-05] MEDS: Albuterol 2.5 MG/3 ML INH SOLN VIAL UPD (17:47)
[2024-08-06] VITALS (8 sets, daily range): BP systolic 124; BP diastolic 68; PULSE 80–85; RESP 5–25; O2SAT 82–96
[2024-08-06] MEDS: Levothyroxine 100 MCG TAB 200 MCG PO (05:56)
[2024-08-06 06:59] LABS: HCT 33.8 % (36.0-46.0); HGB 10.6 g/dL (11.2-15.7); MCH 26.5 pg (27.0-33.0); MCHC 31.4 % (32.0-36.0); MCV 85 fL (80-95); MPV 10.6 fL (8.0-11.0); Platelet Count 378 10^3/uL (130-400); RDW 17.7 % (11.7-14.6); RDW-SD 54.5 fL
[2024-08-06 07:11] LABS: Anion Gap 6.8 mmol/L (3-11); BUN 15 mg/dL (7-18); CO2 32.2 mmol/L (21.0-32.0); CREATININE 0.9 mg/dL (0.55-1.02); Chloride 102 mmol/L (98-107); Estimated GFR 69.64 (mL/min/1.73m2); Glucose 143 mg/dL (74-106); Potassium 3.7 mmol/L (3.5-5.1); Sodium 141 mmol/L (136-145)
[2024-08-06] MEDS: Sertraline 50 MG TAB PO (07:59)
[2024-08-06] MEDS: Norethindrone 5 MG TAB 10 MG PO (07:59)
[2024-08-06] MEDS: Lactobacillus Acidophilus CAP 1 CAP PO (08:00)
[2024-08-06] MEDS: predniSONE 20 MG TAB 40 MG PO (08:00)
[2024-08-06] MEDS: Pantoprazole 20 MG TABCR PO (08:01)
[2024-08-06] MEDS: Furosemide 80 MG TAB PO ×2 (08:01→17:10)
[2024-08-06] MEDS: Potassium Chloride 20 MEQ TABCR PO (08:01)
[2024-08-06] MEDS: Albuterol 2.5 MG/3 ML INH SOLN VIAL UPD (08:13)
[2024-08-06] MEDS: Nystatin POWDER 60 GM JAR TP (08:54)
[2024-08-06] MEDS: Fluticasone NASAL SPRAY 16 GM BTL NS (08:55)
[2024-08-06] MEDS: Normal Saline Flush 10 ML SYR IVP (09:20)
[2024-08-06] MEDS: Albuterol/Ipratropium 3 ML UPD VIAL UPD (10:42)
--- NOTE | 2024-08-06 11:11 | W.PM.PROGNOT ---
Date of Service Date of service: 08/06/24 Time of Service: 11:11 Assessment and Plan Assessment and plan (1) COPD exacerbation: Status: Inactive Assessment and plan: - History of COPD now with acute exacerbation -Status post IV methylprednisolone in the emergency department -Continue 40 mg prednisone daily -Was initially started on antibiotics for concern of community-acquired pneumonia, however chest x-ray shows fluid overload (see CHF exacerbation as noted below); antibiotics discontinued on 08/05/2024 (2) Acute exacerbation of CHF (congestive heart failure): Status: Acute Assessment and plan: - History of HFrEF on last echo in March 2024 -Patient normally on 80 p.o. Lasix twice daily -Was not started on IV diuretic on admission, was on 80 mg IV Lasix twice daily, transition back to p.o. on the morning of 08/06/2024 -Strict I's and O's (3) Acute and chronic respiratory failure with hypoxia: Status: Resolved Assessment and plan: - Patient normally on 3 L nasal cannula -Has required up to 4 L nasal cannula -Wean oxygen as tolerated with goal 88 to 92% (4) Depressive disorder: Status: Inactive Assessment and plan: - Continue home SSRI (5) Morbid obesity: Status: Inactive Assessment and plan: - Encourage ongoing weight loss discussion with PCP (6) DAVID (obstructive sleep apnea): Status: Chronic Assessment and plan: - Continue at bedtime BiPAP Subjective Subjective Interval history since last seen: Patient states that she is feeling a little better as compared to yesterday though she continues to have pretty significant dyspnea with exertion requiring BiPAP after periods of transition. However, she is back at her baseline oxygen requirement. Otherwise she has no other complaints or concerns at this time. Exam Narrative Exam Narrative: Well-appearing morbidly obese female sitting up at the edge of the bed and in no acute distress, ANO x 4, 4 L nasal cannula in place, heart regular rhythm, lungs diminished breath sounds in bilateral bases with minimal expiratory wheezing, abdomen morbidly obese, soft, nontender, nondistended, demarcated area on the left posterior medial calf with surrounding ecchymosis and blister with visible serous fluid underneath, unchanged from previous time Objective Last Vital Signs Temp 98.1 F 08/05/24 19:48 Pulse 85 08/06/24 10:50 Resp 22 08/06/24 10:50 BP 124/68 08/06/24 08:00 Pulse Ox 93 08/06/24 10:50 Laboratory Results - last 24 hr 08/06/24 06:27 WBC 14.40 H RBC 4.00 Hgb 10.6 L Hct 33.8 L MCV 85 MCH 26.5 L MCHC 31.4 L RDW 17.7 H Plt Count 378 MPV 10.6 Sodium 141 Potassium 3.7 Chloride 102 Carbon Dioxide 32.2 H Anion Gap 6.8 BUN 15 Creatinine 0.9 Est GFR (CKD-EPI 2020) 69.64 Glucose 143 H Calcium 8.0 L Time Spent with Patient Time Spent with Patient: >50 minutes Time was spent: preparing to see the patient(eg.review tests), obtaining and/or reviewing separately otained hiistory, ordering medications,tests, procedures, referring, communicating with other health professional healthcare representative, indepentently interpreting results, counseling the patient and care coordination
--- NOTE | 2024-08-06 12:23 | CMPROGNOTE_ITS ---
Date of service: 08/06/24 Time of Service: 12:23 Care Management Progress Note Progress Note Text Progress Note Text: Radha was up in her wheel chair when CM met with her earlier today. She is feeling a bit better, but not quite ready to go home. She did not have her hearing aids in, and was wearing her bipap, so it was difficult to talk. Radha has current HH RN, she is open to PT for [facility]. Discharge Potential Discharge Needs: PCP F/U Appt (Pulmonology) and Other Anticipated Barriers to Discharge: None Identified Patient/Family Education Needs: Review discharge instructions, discuss Ask Me Three Transportation: Other (Sometimes Radha can get a private ride. She may need [facility] wheel chair van.) Plan: Anticipate that Radha will be discharged home in the next day or so. She will f/u with her community providers and continue with her prescribed plan of care. She will continue with HH RN, and new PT for [facility]. She may need assistance with a ride, that is usually dependent on the day/time of discharge. CM will continue to follow. SDOH(Care Management) Screening Will the Patient Participate in the Screening?: Yes Do you worry about having a steady place to live?: no Problems where you live: no known problems In the past 12 months, have you had to go without electric, gas, oil or water in your home?: no Have you or anyone in your house had to go without enough food to eat?: no Has lack of transportation kept you from medical appointments or from doing things needed for daily living?: yes Has anyone in your support network made you feel unsafe for any reason?: no Social Determinants of Health Comments(SDOH Details): pt would like assistance with finding a recliner for her home that is suitable for her needs Health Related Social Needs Health related social needs: transportation insecurity(Z59.82) Anticipated HH Services Anticipated HH Services at Discharge [facility] Resumption, RN (Resume RN and new PT for [facility]).
--- NOTE | 2024-08-06 15:31 | PHA.REVIEW2 ---
Pharmacy Admission Review Admission Clinical Review Admission Pharmacy Review: Acute exacerbation of CHF (congestive heart failure) (Acute) hydrocodone Allergy (Severe, Verified 08/04/24 17:36) ITCHING morphine Allergy (Mild, Verified 08/04/24 17:36) PRURITIS oxycodone Allergy (Mild, Verified 08/04/24 17:36) ITCHING Resuscitation Status Full Code Height 5 ft 3 in Weight 176.901 kg Comments Comments/Follow Ups: Watch VS, H/H, K+, mag, labs and for med changes. Pharmacy Admission Review Renal Dosing Renal Dosing: BUN 15 mg/dL (7-18) 08/06/24 06:27 Creatinine 0.9 mg/dL (0.55-1.02) 08/06/24 06:27 Medications needing adjustments: Reviewed (Crcl ~86.9 mL/min current meds okay) Anticoagulation Anticoagulation: Hgb 10.6 g/dL (11.2-15.7) L 08/06/24 06:27 Hct 33.8 % (36.0-46.0) L 08/06/24 06:27 Plt Count 378 10^3/uL (130-400) 08/06/24 06:27 Creatinine 0.9 mg/dL (0.55-1.02) 08/06/24 06:27 DVT Prophylaxis: Reviewed Medications: Enoxaparin (enoxaparin is currently ordered, dose this morning was held by nursing due to drop in H/H) Opiate Usage Evaluate Pain Scale/Pains Meds: N/A Relevant Labs Relevant Labs: Sodium 141 mmol/L (136-145) 08/06/24 06:27 Potassium 3.7 mmol/L (3.5-5.1) 08/06/24 06:27 Chloride 102 mmol/L (98-107) 08/06/24 06:27 Magnesium 1.7 mg/dL (1.8-2.4) L 08/04/24 17:55 Electrolytes, C-Reactive P, ESR: Intervened (K+ has improved since admission, has home PO dose ordered. Mag was slightly low on 08/04, no replacement given and no levels have been checked since.) DM Control DM Control: Glucose 143 mg/dL (74-106) H 08/06/24 06:27 Finger Stick Blood Glucose 162 Finger Stick Blood Glucose 162 DM Control: N/A Cardiac Review Cardiac Review: Troponin I 11 ng/L (<or=51) 08/04/24 21:29 BP, HR, EF%: Reviewed (BP has been up and down some this admission, HR has mostly been within normal limits so far this admission) QTc Review QTc: Reviewed (QTc 498 on admission, current meds are okay) IV to PO Switch IV Medications: Reviewed Home Meds Home Med List reviewed: Reviewed Relevent Home Meds Not ordered & why?: alclometasone (PRN), ascorbic acid, betamethasone (PRN), ketoconazole (PRN) Current Meds Current Medication Order Review: Reviewed Comments Comments/Follow Ups: Watch VS, H/H, K+, mag, labs and for med changes.
--- NOTE | 2024-08-06 16:53 | DSE_ITS ---
Date of service: 08/06/24 Time of Service: 16:54 DS: Diagnosis Discharge Diagnosis (1) COPD exacerbation: Status: Inactive (2) Acute exacerbation of CHF (congestive heart failure): Status: Resolved (3) Acute and chronic respiratory failure with hypoxia: Status: Resolved (4) Depressive disorder: Status: Inactive (5) Morbid obesity: Status: Inactive (6) DAVID (obstructive sleep apnea): Status: Chronic Discharge Plan Disposition Patient Disposition: Home Condition: Good Discharge Details Reason For Visit: COPD, pneumonia Admit Date/Time: 08/04/24 19:33 Admit Provider: Sunny Ferrer Attending Provider: Sunny Ferrer Primary Care Provider: Alphonso Murphy Hospital Course Hospital Course: Patient initially presented with signs and symptoms that were ultimately determined to be secondary to acute on chronic hypoxic respiratory failure from an acute exacerbation of COPD and HFpEF. She had her diuretics increased from 80 p.o. twice daily Lasix to 80 IV twice daily for about 36 hours had significant improvement in her breathing and combination with treating her COPD exacerbation with nebulizer treatments and steroids. Given that the patient has significant improvement, she will be discharged with an additional 5 days of p.o. prednisone and will resume her home Lasix dose. Resume home health RN, and add PT to evaluate for better breathing. Home Meds and New Rx's Prescriptions: New prednisone 20 mg Tablet 40 mg PO DAILY Qty: 5 0RF Continued Zepbound 2.5 mg/0.5 mL pen injector 2.5 mg subcut QWEEK Qty: 2 0RF Rx Instructions: for 4 weeks albuterol sulfate 90 mcg/actuation HFA aerosol inhaler 1 - 2 puff Inhalation Q6H PRN Qty: 1 11RF ipratropium-albuterol 0.5 mg-3 mg(2.5 mg base)/3 mL solution for nebulization 3 ml IH QID MDD 4 nebs Qty: 180 3RF fluticasone propionate [Flonase Allergy Relief] 50 mcg/actuation spray,suspension 1 spray NS DAILY Qty: 1 8RF potassium chloride [Klor-Con M20] 20 mEq tablet,ER particles/crystals 20 meq PO DAILY Qty: 90 3RF ascorbic acid (vitamin C) 1,000 MG tablet 1,000 mg PO DAILY BiPAP Inhalation Gas 5 l IN DIRECTED Rx Instructions: sleep apnea ([facility] sleep lab 2013) uses with oxygen betamethasone, augmented 0.05 % lotion 1 applic topical BID PRN (Reason: allergic reaction) Qty: 60 2RF levothyroxine 200 mcg tablet 200 mcg PO DAILY Qty: 90 3RF oxygen Inhalation 3 l Intranasal DIRECTED Patient Comments: Continuous and uses with bipap Rx Instructions: 3L/NC continuous alclometasone 0.05 % cream 1 applic topical BID PRN (Reason: itching) Qty: 45 1RF ketoconazole 2 % cream 1 applic topical BID PRN (Reason: facial rash) Qty: 60 1RF furosemide 80 mg tablet 80 mg PO BID@0830,1600 Qty: 60 0RF pantoprazole 20 mg tablet,delayed release (DR/EC) 20 mg PO DAILY Qty: 90 3RF Rx Instructions: 04/13/23 Per GI. -hb sertraline 50 mg tablet 50 mg PO DAILY Qty: 90 3RF norethindrone acetate 5 mg tablet 10 mg PO BID Qty: 180 1RF ferrous sulfate 325 mg (65 mg iron) tablet 325 mg PO Q OTHER DAY Qty: 15 2RF nystatin 100,000 unit/gram powder 1 applic TP BID Qty: 30 5RF BiomePRO 50 billion cell capsule,delayed release(DR/EC) 1 cap PO DAILY Qty: 4 0RF Rx Instructions: Take 3 hours apart form any antibiotics prednisone 20 mg tablet 40 mg PO DAILY Qty: 6 0RF No Action (DME) Aerochamber Mini 1 EACH spacer 1 ea Inhalation PRN Qty: 1 Rx Instructions: DIRECTED WITH INHALER Discharge Instructions Instructions: Chronic Obstructive Pulmonary Disease (COPD) (DC), Pneumonia, Adult (DC) Stand Alone Forms: Nursing Discharge Form Referrals: Alphonso Murphy MD [Primary Care Provider] - (I tried to call your PCP office to leave a voicemail to call you to make an appointment. Please call tomorrow morning to make a follow up appointment with your PCP for within 1 to 2 weeks.) Activity:: Activity as Tolerated Equipment/Supplies:: No Equipment Needed Diet:: As Tolerated Discharge Orders Discharge Orders: Discharge Order (Routine); Ordered 08/06/24 Ordered By: Marek Reyes Discharge Data Discharge Date/Time-TO BE ENTERED AT DEPARTURE: 08/06/24 17:57 DS: Summary Time Spent with Patient providing and/or coordinating discharge services: Greater than 30 minutes Status at Discharge Functional status at discharge: independent ambulation Overall status at discharge: patient is back to baseline Mental Status: mental status grossly normal Speech and Movement: speech and movement normal Mood: congruent mood Affect: normal affect Quality:SDOH Health Related Social Needs: Health related social needs transportation insecurity( Z59.82) Exam Narrative Exam Narrative: Well-appearing morbidly obese female sitting up at the edge of the bed and in no acute distress, ANO x 4, 3L nasal cannula in place, heart regular rhythm, lungs diminished breath sounds in bilateral bases with minimal expiratory wheezing, abdomen morbidly obese, soft, nontender, nondistended, demarcated area on the left posterior medial calf with surrounding ecchymosis and blister with visible serous fluid underneath, unchanged from previous time Psych Mental Status: mental status grossly normal Speech and Movement: speech and movement normal Mood: congruent mood Affect: normal affect DS: Data Vitals/I&O Vitals and I&O: Vital Signs Temperature 98.1 F 08/05/24 19:48 Temperature Source Tympanic 08/05/24 19:48 Pulse 85 08/06/24 10:50 Pulse 89 08/04/24 20:20 Respiratory Rate 22 08/06/24 10:50 Respiratory Effort Short of Breath, Labored, Accessory Muscle Use, Incrsd Work of Breathing 08/04/24 21:28 Respiratory Pattern Tachypnea 08/04/24 21:28 Blood Pressure 124/68 08/06/24 08:00 Blood Pressure Mean 87 08/04/24 20:16 Blood Pressure Position Sitting 08/04/24 17:37 Pulse Oximetry 93 08/06/24 10:50 Oxygen Delivery Method Nasal Cannula 08/06/24 10:42 Oxygen Flow Rate 3 08/06/24 10:42 Pain Level 0 08/05/24 19:48 Intake & Output 08/05/24 08/06/24 08/06/24 17:59 05:59 17:59 Intake Total 570 / 570 10 / 580 990 / 990 Output Total 50 / 50 400 / 450 300 / 300 Balance 520 / 520 -390 / 130 690 / 690 Intake: IV 10 / 10 Oral 570 / 570 980 / 980 Output: Urine 50 / 50 400 / 450 300 / 300 Other: Urine Color Yellow Light Anay Yellow Urine Appearance Clear Clear Clear Urine Odor Normal Normal Data Completed and Pending Labs on day of discharge: Labs from last 24 hours 08/06/24 06:27 WBC 14.40 H RBC 4.00 Hgb 10.6 L Hct 33.8 L MCV 85 MCH 26.5 L MCHC 31.4 L RDW 17.7 H Plt Count 378 MPV 10.6 Sodium 141 Potassium 3.7 Chloride 102 Carbon Dioxide 32.2 H Anion Gap 6.8 BUN 15 Creatinine 0.9 Est GFR (CKD-EPI 2020) 69.64 Glucose 143 H Calcium 8.0 L PFSH All Active Problems (Updated 08/07/24 @ 00:03 by TONY SINGH) Elevated liver enzymes (Acute) Asymptomatic bacteriuria (Acute) Sepsis (Acute) CHF (congestive heart failure) (Chronic) Atrial fibrillation (Chronic) COPD (chronic obstructive pulmonary disease) (Chronic) Acute and chronic respiratory failure (Acute) Elevated white blood cell count (Acute) Abnormal liver enzymes (Acute) Chronic obstructive pulmonary disease with acute exacerbation (Acute) Exertional shortness of breath (Acute) Heart failure with preserved ejection fraction (Acute) Wound dehiscence (Acute) Thickened endometrium (Acute) Postmenopausal bleeding (Acute) COPD (chronic obstructive pulmonary disease) (Acute) Laceration of dobson (Acute) GERD (gastroesophageal reflux disease) (Chronic) had negative barium esophagram in 11/2022. Anxiety (Chronic) Venous stasis dermatitis (Acute) Chronic headaches (Chronic) Recent Neurology consult for possible papilledema. Urinary incontinence (Chronic) On Detrol Recurrent UTI (Chronic) Right ventricular dysfunction (Chronic) Knee pain, bilateral (Chronic 07/23/14) s/p bilat TKR (left infected with mult surg and decreased mobility) Morbid obesity (Acute 04/05/13) Sensorineural hearing loss, bilateral (Chronic 08/29/13) Advance directive on file (Acute) Low back pain with sciatica (Chronic 05/03/14) CT at [facility] L34 spinal stenosis Varicose veins of lower extremity (Chronic) Depression (Chronic) Grief at loss of child (Acute) Chronic respiratory failure with hypoxia and hypercapnia (Chronic) home BiPap Status post total bilateral knee replacement (Acute) Sprain of scapholunate ligament (Acute 03/21/19) DAVID (obstructive sleep apnea) (Chronic) on BiPap Hyperglycemia (Acute) Mixed conductive and sensorineural hearing loss of both ears (Acute) Right carpal tunnel syndrome (Acute) Arthritis of right hand (Acute) Impingement of right ulnar nerve (Acute) Dermoid cyst of neck (Acute) Hypothyroidism (Chronic) Microcalcifications of the breast (Acute) Neuropathy of left hand (Acute) Neuropathy of right hand (Acute) Bilateral carpal tunnel syndrome (Acute) Medical History UTI (urinary tract infection) Abnormal urinalysis Lymphedema Community acquired pneumonia Pneumonia Hx pulmonary embolism (~2015) treated with lovenox x 3 months Surgical History Status post thyroidectomy History of fasciotomy History of Surgical Procedure a. Right and left toal knee replacements. b. Left knee has been repeatedly operated on with slava surgies, three replacements. Replacement of total knee joint Bilateral; left-became romipwbr-[id number]-cunkyrim surgeries Fasciotomy, Foot (~1996) LEFT Family History Mother Diabetes Personal history of malignant neoplasm LUNG Father Personal history of malignant neoplasm BRAIN Grandfather No problems noted. Grandfather No problems noted. Grandmother No problems noted. Grandmother No problems noted. Social History Smoking/Tobacco Use Status: Former Tobacco Use tobacco type: cigarettes Quit Date: 01/21/21 Second Hand Exposure: Yes Smoking risk assessment performed?: Yes Alcohol Intake: never Drug use: Never Substance use type: does not use Counseling given: No Housing: apartment Communication Needs: Hard of Hearing and Corrective Lenses Pets and animals: Yes Pets and animals: cat(s) Sexually active: Yes Current gender identity: female What is your relationship status?: never How often do you talk on the phone with friends or family?: decline to answer How often do you get together with friends or relatives?: decline to answer How often do you attend mandaen or yarsani services?: decline to answer Do you belong to any clubs or organized social groups?: no Panel score (0-1 are the most socially isolated patients): 0 Seatbelt use: never Do you feel safe at home: Yes Do you feel safe in your relationship?: Yes Time Spent with Patient Time Spent with Patient: <45 minutes Time was spent: preparing to see the patient(eg.review tests), obtaining and/or reviewing separately otained hiistory, ordering medications,tests, procedures, referring, communicating with other health customer care assistant, indepentently interpreting results, counseling the patient and care coordination
== END 2024-08-06 17:57 | disposition home or self-care (01) | DRG 190 ==
LOC: ER 19:46 → MS 21:15
PROVIDERS: Family Medicine; Admitting Provider General Practice; Emergency Provider Nurse Practitioner Family; PCP Family Medicine; Visit Provider General Practice
DX: J44.1 Chronic obstructive pulmonary disease with (acute) exacerbation (principal); I50.33 Acute on chronic diastolic (congestive) heart failure; J96.21 Acute and chronic respiratory failure with hypoxia; Z68.44 Body mass index [BMI] 60.0-69.9, adult; F32.9 Major depressive disorder, single episode, unspecified; E66.01 Morbid (severe) obesity due to excess calories; G47.33 Obstructive sleep apnea (adult) (pediatric); I48.91 Unspecified atrial fibrillation; K21.9 Gastro-esophageal reflux disease without esophagitis; F41.9 Anxiety disorder, unspecified; R51.9 Headache, unspecified; H90.3 Sensorineural hearing loss, bilateral; Z96.653 Presence of artificial knee joint, bilateral; R32 Unspecified urinary incontinence; M54.40 Lumbago with sciatica, unspecified side; I83.93 Asymptomatic varicose veins of bilateral lower extremities; Z99.81 Dependence on supplemental oxygen; E03.9 Hypothyroidism, unspecified; I89.0 Lymphedema, not elsewhere classified; Z86.711 Personal history of pulmonary embolism; Z87.891 Personal history of nicotine dependence
CPT/HCPCS: 00123; 36415; 80048; 80053; 82805; 85027; 87637; 93005; 94640; 96374; 99285; 71045; 71046; 83735; 84484; 85025; 93010; 94667; 94668; 94760; 99222; 99233; 99239; J0456; J0696; J1940; J2919; J7512; J7613; J7620

== ENCOUNTER 2024-09-05 12:17 | Outpatient (REF) | payer MEDICARE, MEDICAID, SELFPAY | END 2024-09-05 12:18 | disposition home or self-care (01) | LOC: LBN 12:17 | PROVIDERS: PCP Family Medicine; Visit Provider Family Medicine | DX: I89.0 Lymphedema, not elsewhere classified (principal); L97.119 Non-pressure chronic ulcer of right thigh with unspecified severity; G62.9 Polyneuropathy, unspecified | CPT/HCPCS: 87077; 87070; 87186; 87205 ==

== ENCOUNTER 2024-09-07 10:42 | Inpatient (IN) | payer MEDICARE, MEDICAID, SELFPAY ==
[2024-09-07] VITALS (49 sets, daily range): BP systolic 117–167; BP diastolic 59–88; PULSE 32–110; RESP 5–48; TEMP 36.1–37.7; O2SAT 87–98
--- NOTE | 2024-09-07 10:30 | RT.EKG_ITS ---
APPROVED REPORT Exam: Resting ECG Reason for Exam: dyspnea Patient Location: E HR:95 bpm ECG Measurements Heart Rate 95 AXIS CO 158 P 73 QRSd 106 QRS 84 QT 396 T -7 QTc 500 Conclusion Sinus rhythm...normal P axis, V-rate 60- 99 Probable inferior infarct, age indeterminate...Q>35mS, T neg, II III aVF no stemi
[2024-09-07] MEDS: Albuterol/Ipratropium 3 ML UPD VIAL UPD ×3 (10:50→12:32)
[2024-09-07] MEDS: methylPREDNISolone SUCC 125 MG VIAL IVP (11:20)
[2024-09-07 11:40] LABS: Lactate 1.8 mmol/L (<or=2.0)
[2024-09-07 11:42] LABS: Abs Immature Grans 0.08 10^3/uL (0.0-0.06); Absolute Basophil Count 0.04 10^3/uL (0.0-0.2); Absolute Eosinophil Count 0.15 10^3/uL (0.0-0.7); Absolute Lymphocyte Count 0.92 10^3/uL (1.2-3.4); Absolute Monocyte Count 1.05 10^3/uL (0.1-0.8); Absolute Neutrophil Count 10.52 10^3/uL (1.2-6.7); Basophils % 0.3 %; Eosinophils % 1.2 %; HCT 38.1 % (36.0-46.0); Immature Grans % 0.6 %; Lymphocytes % 7.2 %; MCH 26.1 pg (27.0-33.0); MCHC 31.5 % (32.0-36.0); MCV 83 fL (80-95); MPV 9.5 fL (8.0-11.0); Monocytes % 8.2 %; Neutrophils % 82.5 %; Platelet Count 378 10^3/uL (130-400); RBC 4.59 10^6/uL (3.93-5.22); RDW 17.2 % (11.7-14.6); RDW-SD 52.5 fL; WBC 12.75 10^3/uL (4.4-10.8)
--- NOTE | 2024-09-07 12:00 | DI.RAD_ITS ---
Exam(s) XR PORTABLE CHEST AP EXAM: XR PORTABLE CHEST AP CLINICAL HISTORY: cough. TECHNIQUE: 2D digital imaging was performed. COMPARISON: CR,XR XR CHEST 2V PA LATERAL from 08/04/2024 FINDINGS: Single AP portable view. Cardiomegaly again noted. Mediastinum is widened but unchanged and possibly related to body habitus and portable AP technique. Bilateral pulmonary edema pattern noted. No obvious pleural effusions. No pneumothorax. IMPRESSION: Cardiomegaly. Pulmonary edema again evident. DATA REPOSITORY: RADIATION DOSE DELIVERED:
[2024-09-07 12:04] LABS: COVID-19 PCR Negative (Negative); Influenza A PCR Negative (Negative); Influenza B PCR Negative (Negative); RSV PCR Negative (Negative); Source Nasopharynx
[2024-09-07 12:05] LABS: ALT 55 U/L (14-59); AST 36 U/L (15-37); Albumin 2.8 g/dL (3.4-5.0); Alkaline Phosphatase 77 U/L (46-116); Anion Gap 2.6 mmol/L (3-11); BUN 9 mg/dL (7-18); Bilirubin, Total 1.05 mg/dL (0.2-1.0); CO2 34.4 mmol/L (21.0-32.0); CREATININE 0.8 mg/dL (0.55-1.02); Calcium 8.1 mg/dL (8.5-10.1); Chloride 99 mmol/L (98-107); Estimated GFR 80.21 (mL/min/1.73m2); Glucose 115 mg/dL (74-106); Magnesium 1.6 mg/dL (1.8-2.4); Sodium 136 mmol/L (136-145); Total Protein 7.5 g/dL (6.4-8.2); Troponin I 18 ng/L (<or=51)
--- NOTE | 2024-09-07 12:05 | ED.GENADUL_ITS ---
Discharge Plan Disposition Patient Disposition: Admit to [facility] Condition: Serious Discharge Details Clinical Impression: Acute exacerbation of chronic obstructive pulmonary disease, Pulmonary vascular congestion, Bronchitis, Hypomagnesemia, Acute hypokalemia, Wound of left leg Primary Care Provider: Alphonso Murphy ED Provider: Devin Garland Home Meds and New Rx's Prescriptions: No Action Zepbound 2.5 mg/0.5 mL pen injector 2.5 mg subcut QWEEK Qty: 2 0RF Rx Instructions: for 4 weeks albuterol sulfate 90 mcg/actuation HFA aerosol inhaler 1 - 2 puff Inhalation Q6H PRN Qty: 1 11RF ipratropium-albuterol 0.5 mg-3 mg(2.5 mg base)/3 mL solution for nebulization 3 ml IH QID MDD 4 nebs Qty: 180 3RF fluticasone propionate [Flonase Allergy Relief] 50 mcg/actuation spray,suspension 1 spray NS DAILY Qty: 1 8RF potassium chloride [Klor-Con M20] 20 mEq tablet,ER particles/crystals 20 meq PO DAILY Qty: 90 3RF ascorbic acid (vitamin C) 1,000 MG tablet 1,000 mg PO DAILY (DME) Aerochamber Mini 1 EACH spacer 1 ea Inhalation PRN Qty: 1 Rx Instructions: DIRECTED WITH INHALER BiPAP Inhalation Gas 5 l IN DIRECTED Rx Instructions: sleep apnea (FORMER[facility] sleep lab 2012) uses with oxygen betamethasone, augmented 0.05 % lotion 1 applic topical BID PRN (Reason: allergic reaction) Qty: 60 2RF levothyroxine 200 mcg tablet 200 mcg PO DAILY Qty: 90 3RF oxygen Inhalation 3 l Intranasal DIRECTED Patient Comments: Continuous and uses with bipap Rx Instructions: 3L/NC continuous alclometasone 0.05 % cream 1 applic topical BID PRN (Reason: itching) Qty: 45 1RF ketoconazole 2 % cream 1 applic topical BID PRN (Reason: facial rash) Qty: 60 1RF furosemide 80 mg tablet 80 mg PO BID@0830,1600 Qty: 60 0RF pantoprazole 20 mg tablet,delayed release (DR/EC) 20 mg PO DAILY Qty: 90 3RF Rx Instructions: 04/13/23 Per GI. -hb sertraline 50 mg tablet 50 mg PO DAILY Qty: 90 3RF cephalexin 500 mg capsule 500 mg PO QID Qty: 28 0RF norethindrone acetate 5 mg tablet 10 mg PO BID Qty: 180 1RF ferrous sulfate 325 mg (65 mg iron) tablet 325 mg PO Q OTHER DAY Qty: 15 2RF nystatin 100,000 unit/gram powder 1 applic TP BID Qty: 30 5RF BiomePRO 50 billion cell capsule,delayed release(DR/EC) 1 cap PO DAILY Qty: 4 0RF Rx Instructions: Take 3 hours apart form any antibiotics prednisone 20 mg tablet 40 mg PO DAILY Qty: 6 0RF prednisone 20 mg Tablet 40 mg PO DAILY Qty: 5 0RF HPI General Mode of arrival: ambulatory . Date/Time Provider Initiated Documentation: 09/07/24 10:46 . Limitations to Documentation: no limitations . Information obtained by: patient . HPI Narrative: 69-year-old female with multiple medical problems including history of COPD, CHF, atrial fibrillation, acute and chronic respiratory failure, presents with chief complaint of shortness of breath and difficulty breathing. Patient notes symptoms have gradually worsened over the past 2 days. Shortness of breath is now severe with associated wheezing. She notes cough over the past few days and preceding her worsening shortness of breath. She denies associated fever. She does note some right-sided chest pain with cough. Patient notes chronic unchanged lower extremity edema. No calf pain. Related Data Home Medications ?Medication ?Instructions ?Recorded ?Confirmed ascorbic acid (vitamin C) 1,000 mg 1,000 mg PO DAILY 11/25/12 09/07/24 tablet inhalational spacing device ##1 12/21/13 09/07/24 (Aerochamber Mini) Bipap 5 l IN DIRECTED 07/23/14 09/07/24 betamethasone, augmented 0.05 % 1 applic topical BID PRN allergic 06/20/21 09/07/24 lotion reaction #60 mL levothyroxine 200 mcg tablet 200 mcg PO DAILY #90 tabs 02/15/24 09/07/24 oxygen 3 l intranasal DIRECTED 04/02/24 09/07/24 ferrous sulfate 325 mg (65 mg 325 mg PO Q OTHER DAY #15 tabs 04/12/24 09/07/24 iron) tablet norethindrone acetate 5 mg tablet 10 mg (2 x 5 mg) PO BID #180 tabs 04/12/24 09/07/24 alclometasone 0.05 % topical cream 1 applic topical BID PRN itching 04/17/24 09/07/24 #45 grams ketoconazole 2 % topical cream 1 applic topical BID PRN facial 04/17/24 09/07/24 rash #60 grams L. acidophilus,casei,rhamnosus 50 1 cap PO DAILY #4 caps 06/04/24 09/07/24 billion cell capsule,delayed release (BiomePRO) nystatin 100,000 unit/gram topical 1 applic topical BID intertrigo 06/04/24 09/07/24 powder #30 grams tirzepatide (weight loss) 2.5 2.5 mg (0.5 mL) subcut QWEEK #2 mL 06/12/24 09/07/24 mg/0.5 mL subcutaneous pen injector (Zepbound) prednisone 20 mg tablet 40 mg (2 x 20 mg) PO DAILY #6 tabs 06/29/24 09/07/24 albuterol sulfate 90 mcg/actuation 1 - 2 puff inhalation Q6H PRN ##1 07/17/24 09/07/24 aerosol inhaler fluticasone propionate 50 1 spray NS DAILY ##1 07/17/24 09/07/24 mcg/actuation nasal spray,suspension (Flonase Allergy Relief) ipratropium 0.5 mg-albuterol 3 mg 3 ml inhalation QID COPD 07/17/24 09/07/24 (2.5 mg base)/3 mL nebulization exacerbation/wheezing #180 mL soln potassium chloride 20 mEq 20 meq PO DAILY #90 tabs 07/17/24 09/07/24 tablet,extended release(part/cryst) (Klor-Con M) furosemide 80 mg tablet 80 mg PO BID@0830,1600 #60 tabs 07/26/24 09/07/24 pantoprazole 20 mg tablet,delayed 20 mg PO DAILY #90 tabs 07/26/24 09/07/24 release sertraline 50 mg tablet 50 mg PO DAILY #90 tabs 07/26/24 09/07/24 prednisone 20 mg tablet 40 mg (2 x 20 mg) PO DAILY #5 tabs 08/06/24 09/07/24 cephalexin 500 mg capsule 500 mg PO QID wound infection--leg 09/04/24 09/07/24 #28 caps Previous Rx's ?Medication ?Instructions ?Recorded betamethasone, augmented 0.05 % 1 applic topical BID PRN allergic 06/20/21 lotion reaction #60 mL levothyroxine 200 mcg tablet 200 mcg PO DAILY #90 tabs 02/15/24 ferrous sulfate 325 mg (65 mg 325 mg PO Q OTHER DAY #15 tabs 04/12/24 iron) tablet norethindrone acetate 5 mg tablet 10 mg (2 x 5 mg) PO BID #180 tabs 04/12/24 alclometasone 0.05 % topical cream 1 applic topical BID PRN itching 04/17/24 #45 grams ketoconazole 2 % topical cream 1 applic topical BID PRN facial 04/17/24 rash #60 grams L. acidophilus,casei,rhamnosus 50 1 cap PO DAILY #4 caps 06/04/24 billion cell capsule,delayed release (BiomePRO) nystatin 100,000 unit/gram topical 1 applic topical BID intertrigo 06/04/24 powder #30 grams tirzepatide (weight loss) 2.5 2.5 mg (0.5 mL) subcut QWEEK #2 mL 06/12/24 mg/0.5 mL subcutaneous pen injector (Zepbound) prednisone 20 mg tablet 40 mg (2 x 20 mg) PO DAILY #6 tabs 06/29/24 albuterol sulfate 90 mcg/actuation 1 - 2 puff inhalation Q6H PRN ##1 07/17/24 aerosol inhaler fluticasone propionate 50 1 spray NS DAILY ##1 07/17/24 mcg/actuation nasal spray,suspension (Flonase Allergy Relief) ipratropium 0.5 mg-albuterol 3 mg 3 ml inhalation QID COPD 07/17/24 (2.5 mg base)/3 mL nebulization exacerbation/wheezing #180 mL soln potassium chloride 20 mEq 20 meq PO DAILY #90 tabs 07/17/24 tablet,extended release(part/cryst) (Klor-Con M) furosemide 80 mg tablet 80 mg PO BID@0830,1600 #60 tabs 07/26/24 pantoprazole 20 mg tablet,delayed 20 mg PO DAILY #90 tabs 07/26/24 release sertraline 50 mg tablet 50 mg PO DAILY #90 tabs 07/26/24 prednisone 20 mg tablet 40 mg (2 x 20 mg) PO DAILY #5 tabs 08/06/24 cephalexin 500 mg capsule 500 mg PO QID wound infection--leg 09/04/24 #28 caps Allergies Allergy/AdvReac Type Severity Reaction Status Date / Time hydrocodone Allergy Severe ITCHING Verified 09/07/24 10:52 morphine Allergy Mild PRURITIS Verified 09/07/24 10:52 oxycodone Allergy Mild ITCHING Verified 09/07/24 10:52 General Stated Complaint: SOB REUBEN: 2 Review of Systems Constitutional Constitutional: Denies fever(s) Respiratory Respiratory: Reports cough Integumentary/Breasts Comments: Wound left lower leg Exam Const General: cooperative and no acute distress HENMT Mouth: moist mucous membranes Eyes Conjunctivae: normal conjunctivae Sclera: normal sclerae Neck Neck: trachea midline and supple Resp Effort & Inspection: audible wheezes, labored, respiratory distress and tachypneic Auscultation: rales bilaterally and wheezes Cardio Rate: regular rate and not tachycardic Rhythm: regular rhythm GI Palpation: soft, not firm, no guarding, no masses, not rigid and nontender Skin General skin exam: no rashes or lesions noted Neuro General: patient alert, patient awake and tone normal Extrem General: edema Laterality: bilateral Psych Appearance: grossly normal Mental Status: mental status grossly normal Course Vital Signs Vital signs: Vital Signs Pulse 96 H 09/07/24 10:46 Respiratory Rate 48 H 09/07/24 10:46 Blood Pressure 144/71 H 09/07/24 10:46 Pulse Oximetry 96 09/07/24 10:46 Temperature 37.7 C H 09/07/24 11:59 Temperature Source Oral 09/07/24 11:59 Pulse 87 09/07/24 12:00 Pulse 90 09/07/24 12:00 Respiratory Rate 25 H 09/07/24 12:01 Respiratory Effort Short of Breath, Labored, Incrsd Work of Breathing 09/07/24 12:01 Respiratory Depth Shallow 09/07/24 12:01 Respiratory Pattern Tachypnea 09/07/24 12:01 Blood Pressure 144/71 H 09/07/24 11:59 Blood Pressure Mean 90 09/07/24 11:56 Blood Pressure Position Sitting 09/07/24 11:59 Pulse Oximetry 93 09/07/24 12:00 Oxygen Delivery Method Nasal Cannula 09/07/24 11:59 Oxygen Flow Rate 3 09/07/24 11:59 Pain Level 9 09/07/24 11:59 Comment leg pain 09/07/24 11:59 Lab/Test Results Lab/Test Results: 09/07/24 11:55 Blood Blood Culture - Pending 09/07/24 11:10 Blood Blood Culture - Pending Laboratory Tests Range/Units 09/07/24 09/07/24 11:21 11:33 WBC (4.4-10.8) 10^3/uL 12.75 H RBC (3.93-5.22) 10^6/uL 4.59 Hgb (11.2-15.7) g/dL 12.0 Hct (36.0-46.0) % 38.1 MCV (80-95) fL 83 MCH (27.0-33.0) pg 26.1 L MCHC (32.0-36.0) % 31.5 L RDW (11.7-14.6) % 17.2 H Plt Count (130-400) 10^3/uL 378 MPV (8.0-11.0) fL 9.5 Immature Gran % % 0.6 Neutrophils % % 82.5 Lymphocytes % % 7.2 Monocytes % % 8.2 Eosinophils % % 1.2 Basophils % % 0.3 Nucleated RBC % (0.0-0.3) % 0.0 Absolute Neutrophils (1.2-6.7) 10^3/uL 10.52 H Absolute Lymphocytes (1.2-3.4) 10^3/uL 0.92 L Absolute Monocytes (0.1-0.8) 10^3/uL 1.05 H Absolute Eosinophils (0.0-0.7) 10^3/uL 0.15 Absolute Basophils (0.0-0.2) 10^3/uL 0.04 VBG Lactate (<or=2.0) mmol/L 1.8 COVID-19 Source Nasopharynx SARS-CoV-2 (PCR) (Negative) Negative Influenza Type A (PCR) (Negative) Negative Influenza Type B (PCR) (Negative) Negative RSV (PCR) (Negative) Negative Medical Decision Making 1210 --69-year-old female with multiple medical problems including history of COPD, morbid obesity, CHF, atrial fibrillation, here with cough for the past few days and worsening shortness of breath over the past 2 days with associated wheezing. Patient is in respiratory distress on arrival. She is saturating at her baseline low 90s on baseline 3 L supplemental nasal cannula oxygen. Respiratory therapy has been consulted and evaluated the patient. They agree with neb treatments at this time. Patient receiving DuoNeb treatments. I have given Solu-Medrol IV for treatment of acute COPD exacerbation. Given recent cough, I am concerned about pneumonia versus influenza versus COVID. Will obtain chest x-ray and Fluvid testing. Screening EKG was reviewed and interpreted by me: Please report, sinus rhythm 95 bpm, normal axis, nondiagnostic. Consider CHF. I will check BNP. Initial labs reviewed and leukocytosis noted. This seems to be chronically elevated when I compared to prior labs. Additional labs pending at this time. 1322 --Labs reviewed: BNP slightly elevated. Hypokalemia and hypomagnesemia not ed. I will give magnesium 1 g IV and follow that with potassium IV and p.o. This x-ray was reviewed and interpreted by radiology: Cardiomegaly. Pulmonary edema again evident. Patient reassessed and some improvement after nebs. I will give ceftriaxone IV to cover for potential superimposed bacterial infection. -- Patient has a 4 open circular ulceration medial left lower leg just distal to the knee without significant surrounding erythema. No fluctuance. Wound is weeping. Patient has been on Keflex apparently since yesterday for this wound. Lab Data Lab results reviewed: Yes I reviewed the patient's lab results. Labs: 09/07/24 11:55 Blood Blood Culture - Pending 09/07/24 11:10 Blood Blood Culture - Pending Laboratory Tests Range/Units 09/07/24 09/07/24 11:21 11:33 WBC (4.4-10.8) 10^3/uL 12.75 H RBC (3.93-5.22) 10^6/uL 4.59 Hgb (11.2-15.7) g/dL 12.0 Hct (36.0-46.0) % 38.1 MCV (80-95) fL 83 MCH (27.0-33.0) pg 26.1 L MCHC (32.0-36.0) % 31.5 L RDW (11.7-14.6) % 17.2 H Plt Count (130-400) 10^3/uL 378 MPV (8.0-11.0) fL 9.5 Immature Gran % % 0.6 Neutrophils % % 82.5 Lymphocytes % % 7.2 Monocytes % % 8.2 Eosinophils % % 1.2 Basophils % % 0.3 Nucleated RBC % (0.0-0.3) % 0.0 Absolute Neutrophils (1.2-6.7) 10^3/uL 10.52 H Absolute Lymphocytes (1.2-3.4) 10^3/uL 0.92 L Absolute Monocytes (0.1-0.8) 10^3/uL 1.05 H Absolute Eosinophils (0.0-0.7) 10^3/uL 0.15 Absolute Basophils (0.0-0.2) 10^3/uL 0.04 VBG Lactate (<or=2.0) mmol/L 1.8 Sodium (136-145) mmol/L 136 Potassium (3.5-5.1) mmol/L 3.0 L Chloride (98-107) mmol/L 99 Carbon Dioxide (21.0-32.0) mmol/L 34.4 H Anion Gap (3-11) mmol/L 2.6 L BUN (7-18) mg/dL 9 Creatinine (0.55-1.02) mg/dL 0.8 Est GFR (CKD-EPI 2020) (mL/min/1.73m2) 80.21 Glucose (74-106) mg/dL 115 H Calcium (8.5-10.1) mg/dL 8.1 L Magnesium (1.8-2.4) mg/dL 1.6 L Total Bilirubin (0.2-1.0) mg/dL 1.05 H AST (15-37) U/L 36 ALT (14-59) U/L 55 Alkaline Phosphatase (46-116) U/L 77 Troponin I (<or=51) ng/L 18 NT-Pro-B Natriuret Pep (<300) pg/mL 333 H Total Protein (6.4-8.2) g/dL 7.5 Albumin (3.4-5.0) g/dL 2.8 L COVID-19 Source Nasopharynx SARS-CoV-2 (PCR) (Negative) Negative Influenza Type A (PCR) (Negative) Negative Influenza Type B (PCR) (Negative) Negative RSV (PCR) (Negative) Negative Quality:SDOH Health Related Social Needs: No Data to Display PFSH All Active Problems (Updated 09/07/24 @ 13:46 by Devin Garland MD) Wound of left leg (Acute) Acute hypokalemia (Acute) Hypomagnesemia (Acute) Bronchitis (Acute) Pulmonary vascular congestion (Acute) Acute exacerbation of chronic obstructive pulmonary disease (Acute) Elevated liver enzymes (Acute) Asymptomatic bacteriuria (Acute) Sepsis (Acute) CHF (congestive heart failure) (Chronic) Atrial fibrillation (Chronic) COPD (chronic obstructive pulmonary disease) (Chronic) Acute and chronic respiratory failure (Acute) Elevated white blood cell count (Acute) Abnormal liver enzymes (Acute) Chronic obstructive pulmonary disease with acute exacerbation (Acute) Exertional shortness of breath (Acute) Heart failure with preserved ejection fraction (Acute) Wound dehiscence (Acute) Thickened endometrium (Acute) Postmenopausal bleeding (Acute) COPD (chronic obstructive pulmonary disease) (Acute) Laceration of dobson (Acute) GERD (gastroesophageal reflux disease) (Chronic) had negative barium esophagram in 11/2022. Anxiety (Chronic) Venous stasis dermatitis (Acute) Chronic headaches (Chronic) Recent Neurology consult for possible papilledema. Urinary incontinence (Chronic) On Detrol Recurrent UTI (Chronic) Right ventricular dysfunction (Chronic) Knee pain, bilateral (Chronic 07/23/14) s/p bilat TKR (left infected with mult surg and decreased mobility) Morbid obesity (Acute 04/05/13) Sensorineural hearing loss, bilateral (Chronic 08/29/13) Advance directive on file (Acute) Low back pain with sciatica (Chronic 05/03/14) CT at [facility] L34 spinal stenosis Varicose veins of lower extremity (Chronic) Depression (Chronic) Grief at loss of child (Acute) Chronic respiratory failure with hypoxia and hypercapnia (Chronic) home BiPap Status post total bilateral knee replacement (Acute) Sprain of scapholunate ligament (Acute 03/21/19) DAVID (obstructive sleep apnea) (Chronic) on BiPap Hyperglycemia (Acute) Mixed conductive and sensorineural hearing loss of both ears (Acute) Right carpal tunnel syndrome (Acute) Arthritis of right hand (Acute) Impingement of right ulnar nerve (Acute) Dermoid cyst of neck (Acute) Hypothyroidism (Chronic) Microcalcifications of the breast (Acute) Neuropathy of left hand (Acute) Neuropathy of right hand (Acute) Bilateral carpal tunnel syndrome (Acute) Medical History UTI (urinary tract infection) Abnormal urinalysis Lymphedema Community acquired pneumonia Pneumonia Hx pulmonary embolism (~2015) treated with lovenox x 3 months Surgical History Status post thyroidectomy History of fasciotomy History of Surgical Procedure a. Right and left toal knee replacements. b. Left knee has been repeatedly operated on with slava surgies, three replacements. Replacement of total knee joint Bilateral; left-became [id number] surgeries Fasciotomy, Foot (~1996) LEFT Family History Mother Diabetes Personal history of malignant neoplasm LUNG Father Personal history of malignant neoplasm BRAIN Grandfather No problems noted. Grandfather No problems noted. Grandmother No problems noted. Grandmother No problems noted. Social History Smoking/Tobacco Use Status: Former Tobacco Use tobacco type: cigarettes Quit Date: 01/21/21 Second Hand Exposure: Yes Smoking risk assessment performed?: Yes Alcohol Intake: never Drug use: Never Substance use type: does not use Counseling given: No Housing: apartment Communication Needs: Hard of Hearing and Corrective Lenses Pets and animals: Yes Pets and animals: cat(s) Sexually active: Yes Current gender identity: female What is your relationship status?: never How often do you talk on the phone with friends or family?: decline to answer How often do you get together with friends or relatives?: decline to answer How often do you attend mormonism or yazidism services?: decline to answer Do you belong to any clubs or organized social groups?: no Panel score (0-1 are the most socially isolated patients): 0 Seatbelt use: never Do you feel safe at home: Yes Do you feel safe in your relationship?: Yes
[2024-09-07 12:06] LABS: NT-proBNP 333 pg/mL (<300)
[2024-09-07] MEDS: MAGNESIUM SULFATE 1 GM/100 ML BAG IV_INF (13:20)
[2024-09-07] MEDS: POTASSIUM CHLORIDE 20 MEQ/100 ML BAG 50 MEQ IV_INF (13:21)
[2024-09-07] MEDS: cefTRIAXone 1 GM/50 ML BAG IVPB (13:31)
[2024-09-07] MEDS: Potassium Chloride 20 MEQ TABCR PO (13:31)
[2024-09-07 13:54] LABS: Troponin I 23 ng/L (<or=51)
--- NOTE | 2024-09-07 14:39 | W.PC.ACHO ---
Registration Status: Primary Language: Preferred Language: ED Information & Data Chief Complaint SOB 09/07/24 12:13 Triage Note increasing SOB started 09/07/24 10:46 yesterday. nebs Q3H. can go 5 hours if she does a double . Medical / Surgical History (Last Reviewed 08/04/24 @ 19:27 by Sunny Ferrer MD) UTI (urinary tract infection) Abnormal urinalysis Lymphedema Community acquired pneumonia Pneumonia Hx pulmonary embolism (~2015) (Last Reviewed 08/04/24 @ 19:27 by Sunny Ferrer MD) Status post thyroidectomy History of fasciotomy History of Surgical Procedure Replacement of total knee joint Fasciotomy, Foot (~1996) Most Recent Vital Signs Temperature 37.7 C H 09/07/24 11:59 Temperature Source Oral 09/07/24 11:59 Pulse 90 09/07/24 14:16 Pulse 92 H 09/07/24 14:16 Respiratory Rate 26 H 09/07/24 14:16 Respiratory Effort Short of Breath, Labored, Incrsd Work of Breathing 09/07/24 12:01 Respiratory Depth Shallow 09/07/24 12:01 Respiratory Pattern Tachypnea 09/07/24 12:01 Blood Pressure 152/59 H 09/07/24 14:16 Blood Pressure Mean 89 09/07/24 14:16 Blood Pressure Position Sitting 09/07/24 11:59 Pulse Oximetry 94 09/07/24 14:16 Oxygen Delivery Method Nasal Cannula 09/07/24 11:59 Oxygen Flow Rate 3 09/07/24 11:59 Pain Level 9 09/07/24 11:59 Comment leg pain 09/07/24 11:59 Allergies hydrocodone Allergy (Severe, Verified 09/07/24 10:52) ITCHING morphine Allergy (Mild, Verified 09/07/24 10:52) PRURITIS oxycodone Allergy (Mild, Verified 09/07/24 10:52) ITCHING Precautions Isolation PUI 09/07/24 11:59 Active Medications Generic Name Dose Route Start Last Admin Trade Name Freq PRN Reason Stop Dose Admin Potassium Chloride 20 meq in 100 mls @ 50 mls/hr 09/07/24 13:03 09/07/24 13:21 IV_INF 09/07/24 15:02 50 mls/hr NOW ONE Administration IV IV Catheter Type [Right Saline Lock Forearm] IV Catheter Type [Left Forearm Saline Lock ] IV Catheter Gauge [Right 20 Forearm] IV Catheter Gauge [Left 20 Forearm] Diet Orders Category Date Time Status Nothing Per Oral [DIET] Nutrition 09/07/24 Dinner Active Diagnostics 09/07/24 09/07/24 09/07/24 Range/Units 13:24 11:33 11:21 WBC 12.75 H (4.4-10.8) 10^3/uL RBC 4.59 (3.93-5.22) 10^6/uL Hgb 12.0 (11.2-15.7) g/dL Hct 38.1 (36.0-46.0) % MCV 83 (80-95) fL MCH 26.1 L (27.0-33.0) pg MCHC 31.5 L (32.0-36.0) % RDW 17.2 H (11.7-14.6) % Plt Count 378 (130-400) 10^3/uL MPV 9.5 (8.0-11.0) fL Immature Gran % 0.6 % Neutrophils % 82.5 % Lymphocytes % 7.2 % Monocytes % 8.2 % Eosinophils % 1.2 % Basophils % 0.3 % Nucleated RBC % 0.0 (0.0-0.3) % Absolute Neutrophils 10.52 H (1.2-6.7) 10^3/uL Absolute Lymphocytes 0.92 L (1.2-3.4) 10^3/uL Absolute Monocytes 1.05 H (0.1-0.8) 10^3/uL Absolute Eosinophils 0.15 (0.0-0.7) 10^3/uL Absolute Basophils 0.04 (0.0-0.2) 10^3/uL VBG Lactate 1.8 (<or=2.0) mmol/L Sodium 136 (136-145) mmol/L Potassium 3.0 L (3.5-5.1) mmol/L Chloride 99 (98-107) mmol/L Carbon Dioxide 34.4 H (21.0-32.0) mmol/L Anion Gap 2.6 L (3-11) mmol/L BUN 9 (7-18) mg/dL Creatinine 0.8 (0.55-1.02) mg/dL Est GFR (CKD-EPI 2020) 80.21 (mL/min/1.73m2) Glucose 115 H (74-106) mg/dL Calcium 8.1 L (8.5-10.1) mg/dL Magnesium 1.6 L (1.8-2.4) mg/dL Total Bilirubin 1.05 H (0.2-1.0) mg/dL AST 36 (15-37) U/L ALT 55 (14-59) U/L Alkaline Phosphatase 77 (46-116) U/L Troponin I 23 18 (<or=51) ng/L NT-Pro-B Natriuret Pep 333 H (<300) pg/mL Total Protein 7.5 (6.4-8.2) g/dL Albumin 2.8 L (3.4-5.0) g/dL COVID-19 Source Nasopharynx SARS-CoV-2 (PCR) Negative (Negative) Influenza Type A (PCR) Negative (Negative) Influenza Type B (PCR) Negative (Negative) RSV (PCR) Negative (Negative) 09/07/24 11:55 Blood Culture - Pending Blood 09/07/24 11:10 Blood Culture - Pending Blood Intake and Output - 24 Hour Total 09/07/24 10:42 thru 09/07/24 14:05 Intake Total 60 Balance 60 Weight 179.169 kg Intake: IV 60 Falls Risk Assessment History of Falls No History 09/07/24 12:00 Contributing Factors Impairments 09/07/24 12:00 Ambulatory Aids Uses ambulatory device + 09/07/24 12:00 Tubes/Lines With any additional score 09/07/24 12:00 Gait Evaluation W/any additional score 09/07/24 12:00 Cognition No cognitive impairment 09/07/24 12:00 Fall Total Score 73 09/07/24 12:00 Level of Risk High Risk 09/07/24 12:00 v v v v v v v v v Sending and/or Receiving Nurses: Please use comment section below to note any information pertinent to the patient hand-off not included above. Information / Comments: pr arrives to rm 206 via electric WC Report received from: OZ Rios [id number]
--- NOTE | 2024-09-07 15:43 | HPE_ITS ---
Date of service: 09/07/24 Time of Service: 15:43 Assessment and Plan Assessment and plan (1) Sepsis: Status: Acute Assessment and plan: Sepsis criteria met with tachypnea, tachycardia and leukocytosis on admission with respiratory probable source As below Blood cultures pending Negative respiratory viral panel (2) Acute exacerbation of chronic obstructive pulmonary disease: Status: Acute Assessment and plan: Methylprednisolone given in the ED will transition to oral prednisone in the morning Ceftriaxone given in the ED will continue and reevaluate based on procalcitonin result Might need to transition to doxycycline in which case Keflex for leg will need to be resumed Nebulizers treatment schedule and as needed Mucinex I-S Acapella (3) Leg wound, left: Status: Acute Assessment and plan: On Keflex prior to admission x 24-48 hours Now receiving ceftriaxone Reassess need for Keflex resumption if ceftriaxone is discontinued Wound consult ordered (4) Heart failure with preserved ejection fraction: Status: Acute Assessment and plan: Last EF in 04/03/2024 was 55%. Patient had multiple admissions were her oral dose of Lasix to be converted to IV Lasix with improvement of symptoms. Attempted POCUS exam was not possible on admission but in the setting of her course lungs sound and diffuse wheezes, we will administer 1 dose of IV Lasix. Home dose oral Lasix to be resumed in a.m. Consider additional dose of IV Lasix as needed (5) Acute hypokalemia: Status: Acute Assessment and plan: Supplementation evaluated in the ED Scheduled oral potassium BMP in the morning (6) Hypomagnesemia: Status: Acute Assessment and plan: Supplementation given in ED Magnesium level in the morning (7) On deep vein thrombosis (DVT) prophylaxis: Status: Acute Assessment and plan: On low molecular weight heparin (8) Discharge planning issues: Status: Resolved Assessment and plan: Discharge home when medically stable with home health services Discussed with Dr. Hicks History of Present Illness History of Present Illness Chief Complaint: Shortness of breath Narrative: 69 years old morbidly obese female patient with a past medical history significant for COPD, CHF with preserved ejection fraction, atrial fibrillation, acute on chronic respiratory failure presented to the ED at [facility] today for evaluation of worsening shortness of breath over the past 2 days with increased cough and sputum production and reports of right-sided chest pain with cough. In the ED the patient denied fevers but later on stated that she had 2 days worth of fevers. The patient denied dizziness, change in vision, nausea, vomiting, diarrhea or dysuria. Bilateral lower extremity edema reported as chronic. On presentation to the emergency room the patient was tachycardic tachypneic not hypoxic and normotensive. Workup in the ED was positive for leukocytosis, slightly elevated BNP, hypokalemia 3.0 and hypomagnesemia at 1.6. Chest x-ray showed pulmonary edema bilaterally without reports of infiltrates or consolidations. In the ED the patient received nebulizer treatments, IV methylprednisolone and IV ceftriaxone. Discussed team admitted the patient to the medical surgical floor for evaluation management of the sepsis most likely from respiratory source, COPD exacerbation, hypokalemia, hypomagnesemia as well as pulmonary edema in the setting of her history of HFpEF for which the patient is on high-dose of oral Lasix at home. Potassium and magnesium supplementation were completed in the ED. When seen on the floor the patient confirmed full CODE STATUS. The patient mention shortness of breath starting 2 days ago with 2 days of fevers, denied dizziness, nausea vomiting, gastrointestinal or genitourinary symptoms. Mention that her left lower extremity wound evolved from a blister sustained when her leg was caught between her bed's side we will and the mattress; she has a home health nurse tending to her room at home. Also reported that she had been taking Keflex for the wound. Review of Systems All systems reviewed & are unremarkable except as noted in HPI and below PFSH All Active Problems (Updated 09/07/24 @ 21:07 by Zoila De La Garza APRN) Leg wound, left (Acute) On deep vein thrombosis (DVT) prophylaxis (Acute) Wound of left leg (Acute) Acute hypokalemia (Acute) Hypomagnesemia (Acute) Bronchitis (Acute) Pulmonary vascular congestion (Acute) Acute exacerbation of chronic obstructive pulmonary disease (Acute) Elevated liver enzymes (Acute) Asymptomatic bacteriuria (Acute) Sepsis (Acute) CHF (congestive heart failure) (Chronic) Atrial fibrillation (Chronic) COPD (chronic obstructive pulmonary disease) (Chronic) Acute and chronic respiratory failure (Acute) Elevated white blood cell count (Acute) Abnormal liver enzymes (Acute) Chronic obstructive pulmonary disease with acute exacerbation (Acute) Exertional shortness of breath (Acute) Heart failure with preserved ejection fraction (Acute) Wound dehiscence (Acute) Thickened endometrium (Acute) Postmenopausal bleeding (Acute) COPD (chronic obstructive pulmonary disease) (Acute) Laceration of dobson (Acute) GERD (gastroesophageal reflux disease) (Chronic) had negative barium esophagram in 11/2022. Anxiety (Chronic) Venous stasis dermatitis (Acute) Chronic headaches (Chronic) Recent Neurology consult for possible papilledema. Urinary incontinence (Chronic) On Detrol Recurrent UTI (Chronic) Right ventricular dysfunction (Chronic) Knee pain, bilateral (Chronic 07/23/14) s/p bilat TKR (left infected with mult surg and decreased mobility) Morbid obesity (Acute 04/05/13) Sensorineural hearing loss, bilateral (Chronic 08/29/13) Advance directive on file (Acute) Low back pain with sciatica (Chronic 05/03/14) [place] [facility] [place] Varicose veins of lower extremity (Chronic) Depression (Chronic) Grief at loss of child (Acute) Chronic respiratory failure with hypoxia and hypercapnia (Chronic) home BiPap Status post total bilateral knee replacement (Acute) Sprain of scapholunate ligament (Acute 03/21/19) DAVID (obstructive sleep apnea) (Chronic) on BiPap Hyperglycemia (Acute) Mixed conductive and sensorineural hearing loss of both ears (Acute) Right carpal tunnel syndrome (Acute) Arthritis of right hand (Acute) Impingement of right ulnar nerve (Acute) Dermoid cyst of neck (Acute) Hypothyroidism (Chronic) Microcalcifications of the breast (Acute) Neuropathy of left hand (Acute) Neuropathy of right hand (Acute) Bilateral carpal tunnel syndrome (Acute) Medical History UTI (urinary tract infection) Abnormal urinalysis Lymphedema Community acquired pneumonia Pneumonia Hx pulmonary embolism (~2015) treated with lovenox x 3 months Surgical History Status post thyroidectomy History of fasciotomy History of Surgical Procedure a. Right and left toal knee replacements. b. Left knee has been repeatedly operated on with slava surgies, three replacements. Replacement of total knee joint Bilateral; left-became wapquoas-lnjpxug-nriafyxl surgeries Fasciotomy, Foot (~1996) LEFT Family History Mother Diabetes Personal history of malignant neoplasm LUNG Father Personal history of malignant neoplasm BRAIN Grandfather No problems noted. Grandfather No problems noted. Grandmother No problems noted. Grandmother No problems noted. Social History Smoking/Tobacco Use Status: Former Tobacco Use tobacco type: cigarettes Quit Date: 01/21/21 Second Hand Exposure: Yes Smoking risk assessment performed?: Yes Alcohol Intake: never Drug use: Never Substance use type: does not use Counseling given: No Housing: house Communication Needs: Hard of Hearing and Corrective Lenses Pets and animals: Yes Pets and animals: cat(s) Sexually active: Yes Current gender identity: female What is your relationship status?: never How often do you talk on the phone with friends or family?: decline to answer How often do you get together with friends or relatives?: decline to answer How often do you attend rastafari or hinduism services?: decline to answer Do you belong to any clubs or organized social groups?: no Panel score (0-1 are the most socially isolated patients): 0 Seatbelt use: never Do you feel safe at home: Yes Do you feel safe in your relationship?: Yes Meds Allergies and Home Medications Allergies Allergy/AdvReac Type Severity Reaction Status Date / Time hydrocodone Allergy Severe ITCHING Verified 09/07/24 10:52 morphine Allergy Mild PRURITIS Verified 09/07/24 10:52 oxycodone Allergy Mild ITCHING Verified 09/07/24 10:52 Home Medications ?Medication ?Instructions ?Recorded ?Confirmed ?Type ascorbic acid (vitamin C) 1,000 mg 1,000 mg PO DAILY 11/25/12 09/07/24 History tablet inhalational spacing device ##1 12/21/13 09/07/24 History (Aerochamber Mini) Bipap 5 l IN DIRECTED 07/23/14 09/07/24 History betamethasone, augmented 0.05 % 1 applic topical BID PRN allergic 06/20/21 09/07/24 Rx lotion reaction #60 mL levothyroxine 200 mcg tablet 200 mcg PO DAILY #90 tabs 02/15/24 09/07/24 Rx oxygen 3 l intranasal DIRECTED 04/02/24 09/07/24 History ferrous sulfate 325 mg (65 mg 325 mg PO Q OTHER DAY #15 tabs 04/12/24 09/07/24 Rx iron) tablet norethindrone acetate 5 mg tablet 10 mg (2 x 5 mg) PO BID #180 tabs 04/12/24 09/07/24 Rx alclometasone 0.05 % topical cream 1 applic topical BID PRN itching 04/17/24 09/07/24 Rx #45 grams ketoconazole 2 % topical cream 1 applic topical BID PRN facial 04/17/24 09/07/24 Rx rash #60 grams L. acidophilus,casei,rhamnosus 50 1 cap PO DAILY #4 caps 06/04/24 09/07/24 Rx billion cell capsule,delayed release (BiomePRO) nystatin 100,000 unit/gram topical 1 applic topical BID intertrigo 06/04/24 09/07/24 Rx powder #30 grams tirzepatide (weight loss) 2.5 2.5 mg (0.5 mL) subcut QWEEK #2 mL 06/12/24 09/07/24 Rx mg/0.5 mL subcutaneous pen injector (Zepbound) prednisone 20 mg tablet 40 mg (2 x 20 mg) PO DAILY #6 tabs 06/29/24 09/07/24 Rx albuterol sulfate 90 mcg/actuation 1 - 2 puff inhalation Q6H PRN ##1 07/17/24 09/07/24 Rx aerosol inhaler fluticasone propionate 50 1 spray NS DAILY ##1 07/17/24 09/07/24 Rx mcg/actuation nasal spray,suspension (Flonase Allergy Relief) ipratropium 0.5 mg-albuterol 3 mg 3 ml inhalation QID COPD 07/17/24 09/07/24 Rx (2.5 mg base)/3 mL nebulization exacerbation/wheezing #180 mL soln potassium chloride 20 mEq 20 meq PO DAILY #90 tabs 07/17/24 09/07/24 Rx tablet,extended release(part/cryst) (Klor-Con M) furosemide 80 mg tablet 80 mg PO BID@0830,1600 #60 tabs 07/26/24 09/07/24 Rx pantoprazole 20 mg tablet,delayed 20 mg PO DAILY #90 tabs 07/26/24 09/07/24 Rx release sertraline 50 mg tablet 50 mg PO DAILY #90 tabs 07/26/24 09/07/24 Rx prednisone 20 mg tablet 40 mg (2 x 20 mg) PO DAILY #5 tabs 08/06/24 09/07/24 Rx cephalexin 500 mg capsule 500 mg PO QID wound infection--leg 09/04/24 09/07/24 Rx #28 caps Exam Narrative Exam Narrative: Constitutional The patient is wheelchair initially sleeping but easily arousable, speaks in short sentences with increased tachypnea Neuro:alert and oriented X4 . Nonfocal Resp: Coarse breath sounds bilaterally, expiratory wheezing throughout lung dubose, ongoing oxygen supplementation Cardio: regular rhythm, distant S1, S2, no murmur, positive pulses to all 4 extremities GI: Abdomen is large, not distended, soft and non tender, bowel sounds are present Extremities: Moves all 4 extremities Skin: Left lower leg wound covered with Mepilex without profuse drainage; no erythema seen around wounds, 2 flat no necrosis seen in wound bed Psych: RASS 0, congruent mood and normal to flat affect. Results Labs 09/07/24 11:33 09/07/24 11:33 Labs: Laboratory Results - last 24 hr 09/07/24 09/07/24 09/07/24 11:21 11:33 13:24 WBC 12.75 H RBC 4.59 Hgb 12.0 Hct 38.1 MCV 83 MCH 26.1 L MCHC 31.5 L RDW 17.2 H Plt Count 378 MPV 9.5 Immature Gran % 0.6 Neutrophils % 82.5 Lymphocytes % 7.2 Monocytes % 8.2 Eosinophils % 1.2 Basophils % 0.3 Nucleated RBC % 0.0 Absolute Neutrophils 10.52 H Absolute Lymphocytes 0.92 L Absolute Monocytes 1.05 H Absolute Eosinophils 0.15 Absolute Basophils 0.04 VBG Lactate 1.8 Sodium 136 Potassium 3.0 L Chloride 99 Carbon Dioxide 34.4 H Anion Gap 2.6 L BUN 9 Creatinine 0.8 Est GFR (CKD-EPI 2020) 80.21 Glucose 115 H Calcium 8.1 L Magnesium 1.6 L Total Bilirubin 1.05 H AST 36 ALT 55 Alkaline Phosphatase 77 Troponin I 18 23 NT-Pro-B Natriuret Pep 333 H Total Protein 7.5 Albumin 2.8 L COVID-19 Source Nasopharynx SARS-CoV-2 (PCR) Negative Influenza Type A (PCR) Negative Influenza Type B (PCR) Negative RSV (PCR) Negative Last Vital Signs Temp 37.5 C 09/07/24 15:01 Pulse 90 09/07/24 15:01 Resp 22 09/07/24 15:01 BP 128/79 09/07/24 15:01 Pulse Ox 92 09/07/24 15:01 Time Spent Time spent with Patient: >75 minutes Time was spent: preparing to see the patient(eg.review tests), obtaining and/or reviewing separately otained hiistory, ordering medications,tests, procedures, referring, communicating with other health behavioral health care coordinator, indepentently interpreting results, counseling the patient and care coordination
[2024-09-07] MEDS: Furosemide 100 MG/10 ML VIAL 80 MG IVP (15:50)
[2024-09-07] MEDS: Normal Saline Flush 10 ML SYR IVP ×4 (15:54→22:39)
[2024-09-07] MEDS: Albuterol/Ipratropium 3 ML UPD VIAL IH ×2 (16:34→20:07)
[2024-09-07] MEDS: Norethindrone 5 MG TAB 10 MG PO (20:08)
[2024-09-07] MEDS: Bacitracin 1 PACKET (21:45)
--- NOTE | 2024-09-07 21:57 | WOUNDCONS ---
Date of service: 09/07/24 Time of Service: 21:57 Wound Initial Evaluation Narrative Narrative: Patient is a 69 year old female admitted on 07/08/25. Patient has a lengthy past medical history including conditions of A-Fib, CHF, COPD, DAVID, bilateral TKR (left knee was infected with multiple surgeries), lymphedema and morbid obesity. Patient described trauma injury to left leg when the leg became pinned between the bed and electric wheel chair during a transfer approximately a month ago. Patient utilizes a nurse for wound care and for the ointment and dressing application. Patient states that the CoFlex wrap used for compression is purchased at [employer]. Patient agreed to the wound consult and signed the consent to photograph. This justowriter operator reviewed the H&P, allergies and recent VS. The patient was wearing the bipap mask during the assessment but was able to converse and discuss previous wound care. Patient BMI is 68.9. Wound Left Lower Leg: Wound Type: Stasis Ulcer Wound Surrounding Tissue Appearance: Edematous and Edges Rolled Wound Length: 2.7 cm Wound Width: 9 cm Wound Drainage Amount: Moderate Wound Drainage Description: Bloody Wound Topical Solution/Irrigant: Other (Skintegrity wound cleanser) Additional Other Comments: Gauze dampened for cleaning wound area Pain Additional Other Comments: Initially the patient covered her face with her arms when this justowriter operator started to clean the wound area. After some re-direction of conversation, the patient then tolerated the procedure well. Wound Summary Wound Summary: Wound is located medial on the left lower leg. Patient described similar wound on right leg with healed scar that took months to heal. Photo Photo: Treatment/Dressing Change Topicals/Ointments: Medicated Ointment Cleanse With: Other (Skintegrity wound cleanser) Dressing Types: Mepilex w/Border Nutrition Education Reviewed Nutrition Education: Yes Note: Discussed with patient that increased protein helps with optimal wound healing. The patient stated that she enjoyed liver and other meats and agreed to include those choices with her meal planning Recomendation Recomendation:: Daily: Remove dressing and use gauze and wound cleanser to clean the area Allow 2 minutes for wound cleanser to dwell then pat dry Apply Bacitracin ointment to wound bed Cover with a 5x5 Optifoam silicone faced foam & border dressing Physcian/Nurse Practioner Notified: Yes
[2024-09-07] MEDS: Nystatin POWDER 15 GM JAR TP (22:37)
[2024-09-07] MEDS: Potassium Chloride 20 MEQ TABCR 40 MEQ PO (22:38)
[2024-09-08] VITALS (19 sets, daily range): BP systolic 101–143; BP diastolic 51–87; PULSE 48–116; RESP 2–38; TEMP 36.9–37.4; O2SAT 87–97
--- NOTE | 2024-09-08 | DI.RAD_ITS ---
Exam(s) XR PORTABLE CHEST AP EXAM: XR PORTABLE CHEST AP CLINICAL HISTORY: sob. TECHNIQUE: 2D digital imaging was performed. COMPARISON: CR,XR XR PORTABLE CHEST AP from 08/04/2024 CR XR PORTABLE CHEST AP from 09/07/2024 FINDINGS: Single AP portable view. There is cardiomegaly again noted. Mediastinum unchanged. There is persistent pulmonary venous hype rtension-pulmonary edema pattern. Also some confluent appearing infiltrate in left lower lobe retroc ardiac region. No large pleural effusions evident on this single portable AP view. IMPRESSION: As above but with minimal if any significant radiographic change when compared to 09/07/2024. Cardio megaly and pulmonary edema pattern again evident. DATA REPOSITORY: RADIATION DOSE DELIVERED:
[2024-09-08] MEDS: Levothyroxine 100 MCG TAB 200 MCG PO (06:22)
[2024-09-08 07:34] LABS: Procalcitonin < 0.10 ng/mL
[2024-09-08] MEDS: Albuterol/Ipratropium 3 ML UPD VIAL IH ×4 (09:02→19:59)
--- NOTE | 2024-09-08 09:17 | PDOC.CMIN ---
Date of service: 09/08/24 Time of Service: 09:17 Care Management Initial Assmt Initial Assessment Reason for Hospitalization: sepsis Functional Status/Living Situation Patient Presentation: Radha was lying in bed wearing BIPAP when CM met with her. She switched to a nasal cannula for the conversation but her oxygen saturation remained in the high 90s during that time. RT also came in to check on her during the visit. Radha had a rapid response this morning.She reported that she stood to use the commode and was not able to catch her breath. She has been placed on bedrest for the remainder of the day. Radha lives in an apartment in [facility] with her granddaughter Loc. She is essentially wheelchair bound but is able to stand and pivot to get in and out of bed and to the commode. She has home health nursing visits 3 times a week for wound care to her LLE. A wound consult was completed yesterday with recommendations for wound care and dressing changes. Radha is fairly independent with ADLs and stated that she can bathe and dress herself but sometimes needs some help. She does her own cooking and her granddaughter helps with shopping. Town of Residence: [facility] Resides with: Other (granddaughter Loc lives with her) Significant Other/Family: [facility] Employment Status: Retired Activities/Hobbies/SocialSupport: enjoys cooking Medications Medication Management: No Issues/Barriers identified Physical Functioning/Mobility Assistive Device: wheelchair and walker Advance Directives Advance Directives: Do you have an Advance Directive: Y 04/11/24 07:49 AD On File at [facility]: Y 04/11/24 07:49 Date Asked 07/08/24 07/23/24 16:28 AD Date Reviewed 09/07/24 09/07/24 10:45 COLST On File at [facility] COLST Date Scanned Code Status Resuscitation Status Full Code Portal Pt does not currently have a portal and education provided: Yes Insurance Coverage/Financial Issues Insurance: [facility] Medicare Replacement Medicaid Care Team Visit Care Team Role Provider Type Alphonso Murphy MD Primary Care Provider [facility] STAFF PHYSICIAN Devin Garland MD Emergency Provider [facility] STAFF PHYSICIAN Brandan Hicks Admit Provider [facility] STAFF PHYSICIAN Attending Provider Discharge Potential Discharge Needs: PCP F/U Appt Anticipated Barriers to Discharge: None Identified Patient/Family Education Needs: Review discharge instructions, discuss Ask Me Three Transportation: Private vehicle Plan: Anticipate Radha will be discharged home with a resumption of home health services for wound care. She will follow up with her PCP and plan of care and transport with family via private vehicle. CM will follow and continue to asses for discharge needs. Social Determinants of Health Screening Social Determinants of Health last assessed: 09/08/24 Will the Patient Participate in the Screening?: Yes Do you worry about having a steady place to live?: no Problems where you live: no known problems In the past 12 months, have you had to go without electric, gas, oil or water in your home?: no Have you or anyone in your house had to go without enough food to eat?: no Has lack of transportation kept you from medical appointments or from doing things needed for daily living?: no Has anyone in your life made you feel unsafe or unsupported?: no How hard is it for you to pay for the very basics like food, housing, medical care, and heating? Would you say it is:: Not hard at all Do you want help finding or keeping work or a job?: I do not need or want help If for any reason you need help with day-to-day activities such as bathing, preparing meals, shopping, managing finances, etc., do you get the help you need?: I could use a little more help How often do you feel lonely or isolated from those around you?: Never Do you speak a language other than Georgian at home?: No Does the patient want assistance with any of the above?: No Health Related Social Needs Health related social needs: problems with daily activities (Z73.9) [facility] All Active Problems (Updated 09/07/24 @ 21:07 by Zoila De La Garza APRN) Leg wound, left (Acute) On deep vein thrombosis (DVT) prophylaxis (Acute) Wound of left leg (Acute) Acute hypokalemia (Acute) Hypomagnesemia (Acute) Bronchitis (Acute) Pulmonary vascular congestion (Acute) Acute exacerbation of chronic obstructive pulmonary disease (Acute) Elevated liver enzymes (Acute) Asymptomatic bacteriuria (Acute) Sepsis (Acute) CHF (congestive heart failure) (Chronic) Atrial fibrillation (Chronic) COPD (chronic obstructive pulmonary disease) (Chronic) Acute and chronic respiratory failure (Acute) Elevated white blood cell count (Acute) Abnormal liver enzymes (Acute) Chronic obstructive pulmonary disease with acute exacerbation (Acute) Exertional shortness of breath (Acute) Heart failure with preserved ejection fraction (Acute) Wound dehiscence (Acute) Thickened endometrium (Acute) Postmenopausal bleeding (Acute) COPD (chronic obstructive pulmonary disease) (Acute) Laceration of dobson (Acute) GERD (gastroesophageal reflux disease) (Chronic) had negative barium esophagram in 11/2022. Anxiety (Chronic) Venous stasis dermatitis (Acute) Chronic headaches (Chronic) Recent Neurology consult for possible papilledema. Urinary incontinence (Chronic) On Detrol Recurrent UTI (Chronic) Right ventricular dysfunction (Chronic) Knee pain, bilateral (Chronic 07/23/14) s/p bilat TKR (left infected with mult surg and decreased mobility) Morbid obesity (Acute 04/05/13) Sensorineural hearing loss, bilateral (Chronic 08/29/13) Advance directive on file (Acute) Low back pain with sciatica (Chronic 05/03/14) CT at [facility] [place] L34 spinal stenosis Varicose veins of lower extremity (Chronic) Depression (Chronic) Grief at loss of child (Acute) Chronic respiratory failure with hypoxia and hypercapnia (Chronic) home BiPap Status post total bilateral knee replacement (Acute) Sprain of scapholunate ligament (Acute 03/21/19) DAVID (obstructive sleep apnea) (Chronic) on BiPap Hyperglycemia (Acute) Mixed conductive and sensorineural hearing loss of both ears (Acute) Right carpal tunnel syndrome (Acute) Arthritis of right hand (Acute) Impingement of right ulnar nerve (Acute) Dermoid cyst of neck (Acute) Hypothyroidism (Chronic) Microcalcifications of the breast (Acute) Neuropathy of left hand (Acute) Neuropathy of right hand (Acute) Bilateral carpal tunnel syndrome (Acute) Medical History UTI (urinary tract infection) Abnormal urinalysis Lymphedema Community acquired pneumonia Pneumonia Hx pulmonary embolism (~2015) treated with lovenox x 3 months Surgical History Status post thyroidectomy History of fasciotomy History of Surgical Procedure a. Right and left toal knee replacements. b. Left knee has been repeatedly operated on with slava surgies, three replacements. Replacement of total knee joint Bilateral; left-became zfeuyzdg-vhamgau-bjkvdxph surgeries Fasciotomy, Foot (~1996) LEFT Family History Mother Diabetes Personal history of malignant neoplasm LUNG Father Personal history of malignant neoplasm BRAIN Grandfather No problems noted. Grandfather No problems noted. Grandmother No problems noted. Grandmother No problems noted. Social History Smoking/Tobacco Use Status: Former Tobacco Use tobacco type: cigarettes Quit Date: 01/21/21 Second Hand Exposure: Yes Smoking risk assessment performed?: Yes Alcohol Intake: never Drug use: Never Substance use type: does not use Counseling given: No Housing: house Communication Needs: Hard of Hearing and Corrective Lenses Pets and animals: Yes Pets and animals: cat(s) Sexually active: Yes Current gender identity: female What is your relationship status?: never How often do you talk on the phone with friends or family?: decline to answer How often do you get together with friends or relatives?: decline to answer How often do you attend adventism or synagogue services?: decline to answer Do you belong to any clubs or organized social groups?: no Panel score (0-1 are the most socially isolated patients): 0 Seatbelt use: never Do you feel safe at home: Yes Do you feel safe in your relationship?: Yes
--- NOTE | 2024-09-08 09:53 | W.PM.PROGNOT ---
Date of Service Date of service: 09/08/24 Time of Service: 09:53 Assessment and Plan Assessment and plan (1) Sepsis: Status: Acute Assessment and plan: Sepsis criteria met with tachypnea, tachycardia and leukocytosis on admission with respiratory probable source lactic negative Blood cultures pending Negative respiratory viral panel no focal consolidation on xray continue ceftriaxone day 2 (2) Acute exacerbation of chronic obstructive pulmonary disease: Status: Acute Assessment and plan: Methylprednisolone given in the ED will transition to oral prednisone in the morning, slow taper on ceftriaxone Might need to transition to doxycycline in which case Keflex for leg will need to be resumed Nebulizers treatment schedule and as needed Mucinex I-S Acapella (3) Leg wound, left: Status: Acute Assessment and plan: On Keflex prior to admission x 24-48 hours Now receiving ceftriaxone Reassess need for Keflex resumption if ceftriaxone is discontinued Wound consult completed (4) Heart failure with preserved ejection fraction: Status: Acute Assessment and plan: Last EF in 04/03/2024 was 55%. given one dose of IV lasix, now on home dose Consider additional dose of IV Lasix as needed (5) Acute hypokalemia: Status: Acute Assessment and plan: continue to replete and follow, received IV lasix and is on scheduled oral dosing (6) Hypomagnesemia: Status: Acute Assessment and plan: continue to replete and follow (7) On deep vein thrombosis (DVT) prophylaxis: Status: Acute Assessment and plan: On low molecular weight heparin (8) Discharge planning issues: Status: Resolved Assessment and plan: Discharge home when medically stable with home health services Discussed with Dr. Hicks Subjective Subjective Patient reports: tolerating liquids well, tolerating a regular diet, shortness of breath and afebrile Interval history since last seen: had severe episode of shortness of breath and hypoxia this am while trying to reposition herself in the bed and get up, home bipap tubing came disconnected, greatly exacerbating the situation. rapid response called and patient placed on 100 % NRB, then on our bipap machine and slowly started improving, continues to remain more somnolent, oxygenating in the mid 90's. no c/o chest pain, Exam Const General: acute distress severe and respiratory Nutritional Appearance: obese morbidly obese Orientation: alert, awake and oriented x3 HENMT Head: normal to inspection, normocephalic and atraumatic Mouth: oral mucosae normal Eyes General: appearance normal, both eyes and all related structures Resp Effort & Inspection: normal respiratory effort and able to speak in complete sentences Auscultation: diminished lung sounds bilaterally, no rhonchi and no wheezes Cardio Rate: regular rate Rhythm: regular rhythm GI Inspection: large pannus and obesity Palpation: soft Skin Lesions: lesion noted (see picture documented in wound care assessment) Extrem General: edema (Lymphedema) Laterality: bilateral Psych Mental Status: mental status grossly normal Speech and Movement: speech and movement normal Mood: congruent mood Affect: irritable affect Objective Last Vital Signs Temp 36.9 C 09/08/24 07:32 Pulse 94 H 09/08/24 09:15 Resp 28 H 09/08/24 09:15 BP 129/68 09/08/24 07:32 Pulse Ox 92 09/08/24 09:02 Laboratory Results - last 24 hr 09/07/24 09/07/24 09/07/24 11:21 11:33 13:24 WBC 12.75 H RBC 4.59 Hgb 12.0 Hct 38.1 MCV 83 MCH 26.1 L MCHC 31.5 L RDW 17.2 H Plt Count 378 MPV 9.5 Immature Gran % 0.6 Neutrophils % 82.5 Lymphocytes % 7.2 Monocytes % 8.2 Eosinophils % 1.2 Basophils % 0.3 Nucleated RBC % 0.0 Absolute Neutrophils 10.52 H Absolute Lymphocytes 0.92 L Absolute Monocytes 1.05 H Absolute Eosinophils 0.15 Absolute Basophils 0.04 VBG Lactate 1.8 Sodium 136 Potassium 3.0 L Chloride 99 Carbon Dioxide 34.4 H Anion Gap 2.6 L BUN 9 Creatinine 0.8 Est GFR (CKD-EPI 2020) 80.21 Glucose 115 H Calcium 8.1 L Magnesium 1.6 L Total Bilirubin 1.05 H AST 36 ALT 55 Alkaline Phosphatase 77 Troponin I 18 23 NT-Pro-B Natriuret Pep 333 H Total Protein 7.5 Albumin 2.8 L Procalcitonin COVID-19 Source Nasopharynx SARS-CoV-2 (PCR) Negative Influenza Type A (PCR) Negative Influenza Type B (PCR) Negative RSV (PCR) Negative 09/08/24 06:42 WBC RBC Hgb Hct MCV MCH MCHC RDW Plt Count MPV Immature Gran % Neutrophils % Lymphocytes % Monocytes % Eosinophils % Basophils % Nucleated RBC % Absolute Neutrophils Absolute Lymphocytes Absolute Monocytes Absolute Eosinophils Absolute Basophils VBG Lactate Sodium Potassium Chloride Carbon Dioxide Anion Gap BUN Creatinine Est GFR (CKD-EPI 2020) Glucose Calcium Magnesium Total Bilirubin AST ALT Alkaline Phosphatase Troponin I NT-Pro-B Natriuret Pep Total Protein Albumin Procalcitonin < 0.10 COVID-19 Source SARS-CoV-2 (PCR) Influenza Type A (PCR) Influenza Type B (PCR) RSV (PCR) Time Spent with Patient Time Spent with Patient: >50 minutes Time was spent: preparing to see the patient(eg.review tests), obtaining and/or reviewing separately otained hiistory, ordering medications,tests, procedures, indepentently interpreting results and counseling the patient
[2024-09-08] MEDS: Potassium Chloride 20 MEQ TABCR PO (10:09)
[2024-09-08] MEDS: Furosemide 40 MG TAB 80 MG PO ×2 (10:09→16:56)
[2024-09-08] MEDS: Norethindrone 5 MG TAB 10 MG PO ×2 (10:09→22:52)
[2024-09-08] MEDS: Sertraline 50 MG TAB PO (10:10)
[2024-09-08] MEDS: Ferrous Sulfate 325 MG TAB PO (10:10)
[2024-09-08] MEDS: Potassium Chloride 20 MEQ TABCR 40 MEQ PO ×3 (10:10→22:52)
[2024-09-08] MEDS: guaiFENesin 600 MG TABCR PO ×2 (10:10→22:51)
[2024-09-08] MEDS: Pantoprazole 20 MG TABCR PO (10:11)
[2024-09-08] MEDS: MAGNESIUM SULFATE 2 GM/50 ML BAG IV_INF (10:12)
[2024-09-08] MEDS: Nystatin POWDER 15 GM JAR TP ×2 (10:13→22:53)
[2024-09-08] MEDS: Normal Saline Flush 10 ML SYR IVP ×6 (10:14→22:53)
--- NOTE | 2024-09-08 11:38 | NUR.NOTE ---
Nursing Note: Pt had been refusing to have any alarms placed for safety, and had gotten up to the bathroom without assistance and desated, got anxious and tried to put her Bipap on by herself. It came apart and she was discovered by a nurse answering her call light. Had gotten herself back in to bed. Nursing called a rapid response d/t pt's distress. RT responded and replaced her back on Bipap. Initial VS showed 88% on 4L nc, came up to 91% right away with Bipap. See charting.
[2024-09-08] MEDS: cefTRIAXone 1 GM/50 ML BAG IVPB (12:12)
[2024-09-08] MEDS: Fluticasone NASAL SPRAY 16 GM BTL NS (12:13)
[2024-09-08] MEDS: Bacitracin 1 PACKET TP (12:13)
[2024-09-08] MEDS: predniSONE 20 MG TAB 60 MG PO (12:31)
[2024-09-08] MEDS: Ascorbic Acid 500 MG TAB 1000 MG PO (12:34)
[2024-09-08 13:43] LABS: BE 7 mmol/L (-2-3); HCO3 32 mmol/L (22-26); pCO2 52 mmHg (35-45); pH 7.39 (7.35-7.45); pO2 75 mmHg (80-105); sO2 96 % (95-98); tCO2 29 mmol/L (23-27)
[2024-09-08 13:45] LABS: FIO2 28 %; Site Right Radial
--- NOTE | 2024-09-08 15:08 | RESPIRATORY ---
Addendum entered by Shannon Malave 09/08/24 18:06: Approx 1630 Pt attempted to come off of BIPAP and use 4L NC; pt did not tolerate and needed to put mask back on within a few minutes. Earlier this morning pt was able to tolerate being off of BIPAP. This change reported to PRESS BRAKE OPERATOR and then RN. PRESS BRAKE OPERATOR states she will order a chest xray. Addendum entered by Shannon Malave 09/08/24 15:17: 1510 BIPAP check; pt SPO2 had been increased by RT, 40%, now weaned to 35%. Pt is sleeping. Addendum entered by Shannon Malaev 09/08/24 15:15: Pt asked what happened pre rapid response and she states she tried to stand up to use the commode while wearing her nasal cannula and then just could not breathe. Around 1300 Pt color appears slightly lee, PRESS BRAKE OPERATOR notified and ABG obtained. 7. Original Note: Approx 1030 responded to pt room for rapid response; pt was blue and in severe distress wearing no O2; Pt placed on neb mask (closest within reach) and then quickly transitioned to a NRB. Pt color began to return to face; SPO2 checked at low to mid 90%s. Pt placed on home BIPAP and then about 30 minutes later placed on hospital BIPAP NKV 330 20/14 34% and a neb was given in line with BIPAP Pt stated she was feeling better.
[2024-09-08] MEDS: Albuterol 2.5 MG/3 ML INH SOLN VIAL UPD (23:10)
[2024-09-09] VITALS (97 sets, daily range): BP systolic 104–137; BP diastolic 49–80; PULSE 46–103; RESP 3–34; TEMP 36.5–37.4; O2SAT 91–98
[2024-09-09] MEDS: Albuterol 2.5 MG/3 ML INH SOLN VIAL UPD ×3 (03:42→14:24)
[2024-09-09 06:02] LABS: Abs Immature Grans 0.06 10^3/uL (0.0-0.06); Absolute Eosinophil Count 0.01 10^3/uL (0.0-0.7); Absolute Lymphocyte Count 0.58 10^3/uL (1.2-3.4); Absolute Monocyte Count 1.01 10^3/uL (0.1-0.8); Basophils % 0.4 %; Eosinophils % 0.1 %; HCT 36.3 % (36.0-46.0); HGB 11.6 g/dL (11.2-15.7); Immature Grans % 0.5 %; Lymphocytes % 5.1 %; MCH 26.5 pg (27.0-33.0); MCV 83 fL (80-95); Monocytes % 8.9 %; Platelet Count 361 10^3/uL (130-400); RBC 4.37 10^6/uL (3.93-5.22); RDW 17.5 % (11.7-14.6); RDW-SD 53.2 fL
[2024-09-09 06:03] LABS: Absolute Basophil Count 0.05 10^3/uL (0.0-0.2); Absolute Neutrophil Count 9.69 10^3/uL (1.2-6.7)
[2024-09-09] MEDS: Levothyroxine 100 MCG TAB 200 MCG PO (06:15)
[2024-09-09 06:27] LABS: Anion Gap 4.7 mmol/L (3-11); BUN 12 mg/dL (7-18); CO2 33.3 mmol/L (21.0-32.0); CREATININE 0.8 mg/dL (0.55-1.02); Calcium 7.6 mg/dL (8.5-10.1); Chloride 100 mmol/L (98-107); Estimated GFR 80.21 (mL/min/1.73m2); Glucose 99 mg/dL (74-106); Magnesium 1.7 mg/dL (1.8-2.4); Potassium 3.8 mmol/L (3.5-5.1); Sodium 138 mmol/L (136-145)
[2024-09-09] MEDS: Albuterol/Ipratropium 3 ML UPD VIAL IH ×4 (08:20→19:37)
[2024-09-09] MEDS: Enoxaparin 40 MG/0.4 ML SYR SC (13:59)
[2024-09-09] MEDS: cefTRIAXone 1 GM/50 ML BAG IVPB (13:59)
[2024-09-09 14:47] LABS: BE (Venous) 8 mmol/L (-2-3); HCO3 (Venous) 32 mmol/L (23-28); O2 Sat (Venous) 94 %; TCO2 (Venous) 30 mmol/L (24-29); pCO2 (Venous) 51 mmHg (41-51); pH (Venous) 7.41 (7.31-7.41); pO2 (Venous) 65 mmHg
[2024-09-09] MEDS: Potassium Chloride 20 MEQ TABCR 40 MEQ PO ×2 (16:21→20:21)
[2024-09-09] MEDS: methylPREDNISolone SUCC 125 MG VIAL 60 MG IVP (16:21)
[2024-09-09] MEDS: Normal Saline Flush 10 ML SYR IVP ×2 (16:22→20:21)
[2024-09-09] MEDS: Furosemide 40 MG/4 ML VIAL IVP (16:22)
[2024-09-09] MEDS: MAGNESIUM SULFATE 1 GM/100 ML BAG IV_INF (16:23)
--- NOTE | 2024-09-09 18:11 | PGE_ITS ---
Date of Service Date of service: 09/09/24 Time of Service: 18:11 Assessment and Plan Assessment and plan (1) Sepsis: Status: Acute Assessment and plan: Sepsis criteria met with tachypnea, tachycardia and leukocytosis on admission with respiratory probable source lactic negative Blood cultures pending Negative respiratory viral panel no focal consolidation on xray continue ceftriaxone day 3 (also covering possible leg infection) add doxycycline for full respiratory coverage. If fever re-image lungs and expand coverage. (2) Acute exacerbation of chronic obstructive pulmonary disease: Status: Acute Assessment and plan: Methylprednisolone given in the ED, now written for oral prednisone but not getting PO meds. Back to IV methylprednisolone for now. on abx as above. Nebulizers treatment schedule and as needed Mucinex I-S Acapella (3) Leg wound, left: Status: Acute Assessment and plan: On Keflex prior to admission x 24-48 hours Now receiving ceftriaxone Reassess need for Keflex resumption if ceftriaxone is discontinued Wound consult completed, no change today (4) Heart failure with preserved ejection fraction: Status: Acute Assessment and plan: Last EF in 04/03/2024 was 55%. given one dose of IV lasix, now on home dose, but not getting oral meds. I do think CHF contributing, will give IV furosemide 40mg BID Consider additional dose of IV Lasix as needed (5) Acute hypokalemia: Status: Acute Assessment and plan: continue to replete and follow (6) Hypomagnesemia: Status: Acute Assessment and plan: continue to replete and follow (7) On deep vein thrombosis (DVT) prophylaxis: Status: Acute Assessment and plan: On low molecular weight heparin (8) Discharge planning issues: Status: Resolved Assessment and plan: To ICU status today, back to floor when stabilizes from respiratory standpoint. Discharge home when medically stable with home health services Subjective Subjective Patient reports: denies diarrhea, nausea, vomiting or fever Interval history since last seen: Events: Episode of increased shortness of breath again today. Unclear trigger this time, but gets panic when she can't breath and oxygen goes down, hyperventilates, slow to calm back down even after oxygen improved Later in afternoon, feeling better. Hadn't gotten her po meds as not coming off BiPAP enough, but this is improving, taking sips of fluids now. She usually only uses BiPAP at home at night, with naps, prn. She states nebs do help. Exam Narrative Exam Narrative: Gen: Alert and oriented, sitting up in bed with BiPAP, coopreative, speaks in short sentences with increased tachypnea holding mask from face Resp: Coarse breath sounds bilaterally, but decent air movement, some expiratory wheezing throughout lung dubose, no rales Cardio: regular rhythm, distant GI: Abdomen is large, not distended, soft and non tender, bowel sounds are present Extremities: Moves all 4 extremities Skin: Left lower leg wound covered with Mepilex without profuse drainage; no erythema seen around wounds, Objective Last Vital Signs Temp 36.5 C 09/09/24 15:15 Pulse 86 09/09/24 16:37 Resp 25 H 09/09/24 16:37 BP 118/60 09/09/24 14:48 Pulse Ox 94 09/09/24 16:37 Laboratory Results - last 24 hr 09/09/24 09/09/24 05:40 14:44 WBC 11.40 H RBC 4.37 Hgb 11.6 Hct 36.3 MCV 83 MCH 26.5 L MCHC 32.0 RDW 17.5 H Plt Count 361 MPV 10.0 Immature Gran % 0.5 Neutrophils % 85.0 Lymphocytes % 5.1 Monocytes % 8.9 Eosinophils % 0.1 Basophils % 0.4 Nucleated RBC % 0.0 Absolute Neutrophils 9.69 H Absolute Lymphocytes 0.58 L Absolute Monocytes 1.01 H Absolute Eosinophils 0.01 Absolute Basophils 0.05 VBG pH 7.41 VBG pCO2 51 VBG pO2 65 VBG HCO3 32 H VBG Total CO2 30 H VBG O2 Saturation 94 VBG Base Excess 8 H Sodium 138 Potassium 3.8 Chloride 100 Carbon Dioxide 33.3 H Anion Gap 4.7 BUN 12 Creatinine 0.8 Est GFR (CKD-EPI 2020) 80.21 Glucose 99 Calcium 7.6 L Magnesium 1.7 L Time Spent with Patient Time Spent with Patient: >50 minutes Time was spent: preparing to see the patient(eg.review tests), obtaining and/or reviewing separately otained hiistory, ordering medications,tests, procedures, referring, communicating with other health cardiac care unit nurse, indepentently interpreting results, counseling the patient and care coordination
[2024-09-09] MEDS: DOXYCYCLINE 100 MG in Normal Saline 100 ML IVPB (20:20)
[2024-09-09] MEDS: guaiFENesin 600 MG TABCR PO (20:21)
[2024-09-09] MEDS: Norethindrone 5 MG TAB 10 MG PO (20:21)
[2024-09-09] MEDS: Nystatin POWDER 15 GM JAR TP (21:18)
[2024-09-10] VITALS (45 sets, daily range): BP systolic 93–144; BP diastolic 42–77; PULSE 73–97; RESP 3–30; TEMP 36.6–37.1; O2SAT 87–95
[2024-09-10] MEDS: Albuterol 2.5 MG/3 ML INH SOLN VIAL UPD ×2 (00:23→13:47)
[2024-09-10] MEDS: Normal Saline Flush 10 ML SYR IVP ×3 (01:01→16:13)
[2024-09-10] MEDS: methylPREDNISolone SUCC 125 MG VIAL 60 MG IVP ×3 (01:02→16:12)
[2024-09-10] MEDS: Levothyroxine 100 MCG TAB 200 MCG PO (06:12)
[2024-09-10] MEDS: DOXYCYCLINE 100 MG in Normal Saline 100 ML IVPB ×2 (06:12→18:15)
[2024-09-10 06:14] LABS: BUN 13 mg/dL (7-18); CREATININE 0.7 mg/dL (0.55-1.02); Calcium 7.5 mg/dL (8.5-10.1); Estimated GFR 94.15 (mL/min/1.73m2); Glucose 150 mg/dL (74-106); Potassium 4.6 mmol/L (3.5-5.1); Sodium 141 mmol/L (136-145)
[2024-09-10 06:15] LABS: Anion Gap 4.4 mmol/L (3-11); CO2 36.6 mmol/L (21.0-32.0); Chloride 100 mmol/L (98-107); Magnesium 2.1 mg/dL (1.8-2.4)
[2024-09-10] MEDS: Norethindrone 5 MG TAB 10 MG PO ×2 (08:03→19:47)
[2024-09-10] MEDS: Bacitracin 1 PACKET TP (08:03)
[2024-09-10] MEDS: Ascorbic Acid 500 MG TAB 1000 MG PO (08:03)
[2024-09-10] MEDS: Potassium Chloride 20 MEQ TABCR 40 MEQ PO ×3 (08:03→19:47)
[2024-09-10] MEDS: Ferrous Sulfate 325 MG TAB PO (08:07)
[2024-09-10] MEDS: guaiFENesin 600 MG TABCR PO ×2 (08:07→19:48)
[2024-09-10] MEDS: Sertraline 50 MG TAB PO (08:07)
[2024-09-10] MEDS: Furosemide 40 MG/4 ML VIAL IVP ×2 (08:07→16:13)
[2024-09-10] MEDS: Pantoprazole 40 MG VIAL IVP (08:08)
[2024-09-10] MEDS: Normal Saline 10 ML VIAL IJ ×2 (08:08→13:20)
--- NOTE | 2024-09-10 08:55 | CMPROGNOTE_ITS ---
Date of service: 09/10/24 Time of Service: 08:55 Care Management Progress Note Progress Note Text Progress Note Text: Radha was lying in bed with her Bipap on when CM met with her. She removed the Bipap and put her nasal cannula on so she would be able to talk. Radha stated that she is just starting to feel a little bit better. She reported that this morning one of the nurses came in and was wearing perfume. She had put it on last night but the smell lingered and caused breathing issues for Radha. Radha stated that the rapid response on Tuesday was triggered by a associate account executive wearing perfume or cologne and she had a similar experience with a night time male RT. CM reported the incidents to the nursing fractionation supervisor who confirmed that [facility] is a scent free facility by policy. Radha remains ICU level of care and is still requiring Bipap or high flow nasal cannula and is saturating at 90-91%. Radha had requested assistance with the completion of advanced directives on Tuesday, however she has been too sick to be able to aprticipate. CM arranged to meet with Radha on Tuesday to complete the forms. Discharge Potential Discharge Needs: PCP F/U Appt Anticipated Barriers to Discharge: None Identified Patient/Family Education Needs: Review discharge instructions, discuss Ask Me Three Transportation: Private vehicle Plan: Anticipate Radha will be discharged home with a resumption of home health services for wound care. She will follow up with her PCP and plan of care and transport with family via private vehicle. CM will follow and continue to asses for discharge needs. Social Determinants of Health Screening Social Determinants of Health last assessed: 09/10/24 Will the Patient Participate in the Screening?: Yes Do you worry about having a steady place to live?: no Problems where you live: no known problems In the past 12 months, have you had to go without electric, gas, oil or water in your home?: no Have you or anyone in your house had to go without enough food to eat?: no Has lack of transportation kept you from medical appointments or from doing thin gs needed for daily living?: no Has anyone in your life made you feel unsafe or unsupported?: no How hard is it for you to pay for the very basics like food, housing, medical care, and heating? Would you say it is:: Not hard at all Do you want help finding or keeping work or a job?: I do not need or want help If for any reason you need help with day-to-day activities such as bathing, preparing meals, shopping, managing finances, etc., do you get the help you need?: I could use a little more help How often do you feel lonely or isolated from those around you?: Never Do you speak a language other than Bangladeshi at home?: No Does the patient want assistance with any of the above?: No Health Related Social Needs Health related social needs: problems with daily activities (Z73.9)
[2024-09-10] MEDS: Nystatin POWDER 15 GM JAR TP (09:00)
[2024-09-10] MEDS: Albuterol/Ipratropium 3 ML UPD VIAL IH ×4 (09:06→20:00)
[2024-09-10] MEDS: Fluticasone NASAL SPRAY 16 GM BTL NS (09:23)
[2024-09-10] MEDS: Enoxaparin 40 MG/0.4 ML SYR SC (12:24)
[2024-09-10] MEDS: cefTRIAXone 1 GM/50 ML BAG IVPB (12:26)
--- NOTE | 2024-09-10 12:38 | W.NUTRFU ---
Date of service: 09/10/24 Time of Service: 12:38 Nutrition Note NOTE: 69yo patient known to me from multiple attempts to see as outpatient for weight management. Radha is admitted for COPD exacerbation, with sepsis and a wound to her left leg that is being managed. She has elevated glucose due to current steroid use with fasting glucose at 150 today. CAlcium lab low today at 7.5 . 09/07 albumin low and total protein lab wnl. Tolerating regular diet with fair appetite. furosemide and KCl ordered. Recommendations: - calcium repletion d/t low lab value -phosphorus lab as low calcium tends to go hand in hand with low phos. - vitamin D lab d/t increased adiposity and current geographical location with no supplementation at home will monitor labs, intake. Time Spent in Nutritional Counseling and Treatment: 0
--- NOTE | 2024-09-10 14:44 | W.PM.PROGNOT ---
Date of Service Date of service: 09/10/24 Time of Service: 14:46 Assessment and Plan Assessment and plan (1) Sepsis: Status: Acute Assessment and plan: Sepsis criteria met with tachypnea, tachycardia and leukocytosis on admission with respiratory probable source lactic negative Blood cultures pending Negative respiratory viral panel no focal consolidation on xray continue ceftriaxone day 3 (also covering possible leg infection) add doxycycline for full respiratory coverage. If fever re-image lungs and expand coverage. 09.10.24 Pt is on rocepthin and doxy day #3 for abx coverage. CBC pending in AM (2) Acute exacerbation of chronic obstructive pulmonary disease: Status: Acute Assessment and plan: Methylprednisolone given in the ED, now written for oral prednisone but not getting PO meds. Back to IV methylprednisolone for now. on abx as above. Nebulizers treatment schedule and as needed Mucinex I-S Acapella 09.10.24 Pt is on albuterol/duonep/methyprednisolone at 60 mg q8 (3) Leg wound, left: Status: Acute Assessment and plan: On Keflex prior to admission x 24-48 hours Now receiving ceftriaxone Reassess need for Keflex resumption if ceftriaxone is discontinued Wound consult completed, no change today (4) Heart failure with preserved ejection fraction: Status: Acute Assessment and plan: Last EF in 04/03/2024 was 55%. given one dose of IV lasix, now on home dose, but not getting oral meds. I do think CHF contributing, will give IV furosemide 40mg BID Consider additional dose of IV Lasix as needed 09.10.24 Pt down appx 2 liters of fluid since admission. Weight on admission was 179kg and now at 188.9kg? Will d/w ICU staff. (5) Acute hypokalemia: Status: Acute Assessment and plan: continue to replete and follow (6) Hypomagnesemia: Status: Acute Assessment and plan: continue to replete and follow (7) On deep vein thrombosis (DVT) prophylaxis: Status: Acute Assessment and plan: On lovenox, will d/w pharmacy bid dosing 2/2 BMI (8) Discharge planning issues: Status: Resolved Assessment and plan: To ICU status today, back to floor when stabilizes from respiratory standpoint. Discharge home when medically stable with home health services Ordered cbc/cmp/ionized calcium/palliative care/ Subjective Subjective Interval history since last seen: Pt does c/o of sob still. NS report pt with blood tinged urine. Exam Narrative Exam Narrative: Gen: Alert and oriented, sitting up in bed with BiPAP, coopreative, speaks in short sentences with increased tachypnea holding mask from face Resp: Coarse breath sounds bilaterally, but decent air movement, some expiratory wheezing throughout lung dubose, no rales Cardio: regular rhythm, distant GI: Abdomen is large, not distended, soft and non tender, bowel sounds are present Extremities: Moves all 4 extremities Skin: Left lower leg wound covered with Mepilex without profuse drainage; no erythema seen around wounds, gu: schultz in place Objective Last Vital Signs Temp 37 C 09/10/24 12:40 Pulse 91 H 09/10/24 13:48 Resp 30 H 09/10/24 13:48 BP 110/77 09/10/24 12:01 Pulse Ox 91 L 09/10/24 13:48 Laboratory Results - last 24 hr 09/09/24 09/10/24 14:44 05:31 VBG pH 7.41 VBG pCO2 51 VBG pO2 65 VBG HCO3 32 H VBG Total CO2 30 H VBG O2 Saturation 94 VBG Base Excess 8 H Sodium 141 Potassium 4.6 Chloride 100 Carbon Dioxide 36.6 H Anion Gap 4.4 BUN 13 Creatinine 0.7 Est GFR (CKD-EPI 2020) 94.15 Glucose 150 H Calcium 7.5 L Magnesium 2.1 Time Spent with Patient Time Spent with Patient: 35-49 minutes Time was spent: preparing to see the patient(eg.review tests), obtaining and/or reviewing separately otained hiistory, ordering medications,tests, procedures, referring, communicating with other health care transitions manager, indepentently interpreting results, counseling the patient and care coordination
[2024-09-10 17:08] LABS: Bilirubin Negative (Negative); Blood Large (Negative); Clarity Cloudy (Clear); Glucose Negative (Negative); Ketones Negative (Negative); Leukocyte Esterase Negative (Negative); Nitrite Negative (Negative); pH 6.5 (5-8)
[2024-09-10 17:31] LABS: Bacteria Few HPF (Negative); C & S Indicated? No; Casts Negative LPF (Negative); Crystals Negative HPF (Negative); Epithelial Cells Rare HPF (Negative); Mucus Negative (Negative); Other Cells Negative (Negative); RBC >50 HPF (0-2); WBC Negative HPF (0-5)
[2024-09-11] VITALS (48 sets, daily range): BP systolic 100–151; BP diastolic 45–76; PULSE 81–109; RESP 0–34; TEMP 36.5–37.2; O2SAT 88–95
[2024-09-11] MEDS: Normal Saline Flush 10 ML SYR IVP ×3 (00:10→19:58)
[2024-09-11] MEDS: methylPREDNISolone SUCC 125 MG VIAL 60 MG IVP ×3 (00:10→16:16)
[2024-09-11] MEDS: Levothyroxine 100 MCG TAB 200 MCG PO (05:33)
[2024-09-11] MEDS: DOXYCYCLINE 100 MG in Normal Saline 100 ML IVPB (05:34)
[2024-09-11 06:02] LABS: BE (Venous) 12 mmol/L (-2-3); HCO3 (Venous) 36 mmol/L (23-28); O2 Sat (Venous) 99 %; TCO2 (Venous) 32 mmol/L (24-29); pCO2 (Venous) 50 mmHg (41-51); pH (Venous) 7.46 (7.31-7.41); pO2 (Venous) 104 mmHg
[2024-09-11 06:04] LABS: Abs Immature Grans 0.04 10^3/uL (0.0-0.06); HCT 37.1 % (36.0-46.0); HGB 11.5 g/dL (11.2-15.7); MCH 26.1 pg (27.0-33.0); MCV 84 fL (80-95); MPV 10.2 fL (8.0-11.0); RBC 4.41 10^6/uL (3.93-5.22); RDW 17.3 % (11.7-14.6); RDW-SD 53.9 fL; WBC 6.72 10^3/uL (4.4-10.8)
[2024-09-11 06:25] LABS: ALT 64 U/L (14-59); AST 48 U/L (15-37); Albumin 2.4 g/dL (3.4-5.0); Alkaline Phosphatase 58 U/L (46-116); Anion Gap 0.5 mmol/L (3-11); BUN 15 mg/dL (7-18); Bilirubin, Total 0.61 mg/dL (0.2-1.0); CO2 37.5 mmol/L (21.0-32.0); CREATININE 0.7 mg/dL (0.55-1.02); Calcium 7.6 mg/dL (8.5-10.1); Chloride 102 mmol/L (98-107); Estimated GFR 94.15 (mL/min/1.73m2); Glucose 154 mg/dL (74-106); Potassium 4.7 mmol/L (3.5-5.1); Sodium 140 mmol/L (136-145); Total Protein 7.1 g/dL (6.4-8.2)
[2024-09-11] MEDS: Albuterol 2.5 MG/3 ML INH SOLN VIAL UPD (06:33)
[2024-09-11 06:47] LABS: Absolute Eosinophil Count 0.07 10^3/uL (0.0-0.7); Absolute Lymphocyte Count 0.74 10^3/uL (1.2-3.4); Absolute Monocyte Count 0.27 10^3/uL (0.1-0.8); Absolute Neutrophil Count 5.64 10^3/uL (1.2-6.7); Atypical Lymphocytes % 3 %; Diff Comment Manual Differential; Platelet Count 328 10^3/uL (130-400); RBC Morphology Normal
[2024-09-11] MEDS: Albuterol/Ipratropium 3 ML UPD VIAL IH ×4 (08:00→20:17)
[2024-09-11] MEDS: Pantoprazole 40 MG VIAL IVP (09:05)
[2024-09-11] MEDS: Furosemide 40 MG/4 ML VIAL IVP ×2 (09:06→16:18)
[2024-09-11] MEDS: guaiFENesin 600 MG TABCR PO ×2 (09:10→19:52)
[2024-09-11] MEDS: Sertraline 50 MG TAB PO (09:12)
[2024-09-11] MEDS: Bacitracin 1 PACKET TP (09:15)
[2024-09-11] MEDS: Potassium Chloride 20 MEQ TABCR 40 MEQ PO ×2 (09:15→14:06)
[2024-09-11] MEDS: Norethindrone 5 MG TAB 10 MG PO ×2 (09:16→19:52)
[2024-09-11] MEDS: Nystatin POWDER 15 GM JAR TP (09:17)
[2024-09-11] MEDS: Fluticasone NASAL SPRAY 16 GM BTL NS (09:17)
[2024-09-11] MEDS: Ascorbic Acid 500 MG TAB 1000 MG PO (09:18)
--- NOTE | 2024-09-11 09:22 | CMPROGNOTE_ITS ---
Date of service: 09/11/24 Time of Service: 09:22 Care Management Progress Note Progress Note Text Progress Note Text: Radha was sitting up on the edge of the bed when CM met with her today. Radha expressed some frustration over her frequent hospitalizations. She has been hospitalized several times in the last 6 months. Radha stated that today she has been able to stay off of the bipap for most of the day today, which is an improvement. She did appear tacchypneic, but was able to converse. CM in formed Radha that palliative care was planning to see her today. We discussed why this referral was placed. Discharge Potential Discharge Needs: PCP F/U Appt Anticipated Barriers to Discharge: None Identified Patient/Family Education Needs: Review discharge instructions, discuss Ask Me Three Transportation: Private vehicle Plan: Anticipate Radha will be discharged home with a resumption of her home health services. She will follow up with her PCP and plan of care and transport with family via private vehicle. CM will follow and continue to asses for discharge needs. Social Determinants of Health Screening Social Determinants of Health last assessed: 09/11/24 Will the Patient Participate in the Screening?: Yes Do you worry about having a steady place to live?: no Problems where you live: no known problems In the past 12 months, have you had to go without electric, gas, oil or water in your home?: no Have you or anyone in your house had to go without enough food to eat?: no Has lack of transportation kept you from medical appointments or from doing things needed for daily living?: no Has anyone in your life made you feel unsafe or unsupported?: no How hard is it for you to pay for the very basics like food, housing, medical care, and heating? Would you say it is:: Not hard at all Do you want help finding or keeping work or a job?: I do not need or want help If for any reason you need help with day-to-day activities such as bathing, preparing meals, shopping, managing finances, etc., do you get the help you need?: I could use a little more help How often do you feel lonely or isolated from those around you?: Never Do you speak a language other than [place] at home?: No Does the patient want assistance with any of the above?: No Health Related Social Needs Health related social needs: problems with daily activities (Z73.9)
[2024-09-11] MEDS: Enoxaparin 40 MG/0.4 ML SYR SC (09:50)
[2024-09-11] MEDS: cefTRIAXone 1 GM/50 ML BAG IVPB (11:55)
--- NOTE | 2024-09-11 12:43 | PCNE_ITS ---
Date of service: 09/11/24 Time of Service: 14:36 History of Present Illness Narrative: Radha Masterson is a 69 yo woman from [facility] with advanced COPD who was admitted to [facility] 4 days ago with acute exacerbation of COPD. This is patient's fifth [facility] admission since March 2024 and her fourth hospital admission in 3 months. Palliative care team is consulted to help with goals of care, advance care planning and additional layer of support. Palliative care was last consulted for this patient in 2017. Her other medical problems include COPD, restrictive lung disease, congestive heart failure, A-fib morbid obesity obesity, chronic lower extremity edema with chronic left leg wound (requiring regular home health nurse visits for wound care), elevated liver enzymes, hx Pulmonary embolism,Frequent UTIs and incontinence, WC bound (loose TKR that [facility] will not redo due to risk of sugrery) Patient is able to tell me that she has been in [facility] since summer (5 admissions, correct by y count). Prior to that she was doing pretty good. Each hospital admission is wearing her down further and she is not bouncing back. Previous winter did much better (has had bad morgan in the past) #COPD with chronic respiratory failure, hypercapnia: -She notes that she came in pretty sick, but then got acutely worse the day after admission and had to be transferred to ICU. -On home oxygen (3L) and CPAP (uses at night and with naps) -Frequent exacerbations requiring steroids. -Has never needed biPap before. Found it very helpful, but it scared her when she had trouble going without it yesterday and today. #Heart failure with preserved ejection fraction: -March 2024 EF 55% (Technically unable to get ECHO 06/07). Frequent admissions for COPD with evidence of pulmonary vascular congestion. Often responds to IV Lasix but recurs frequently. -Pt very upset for the last few months becauseThey told me my heart is only 55%. -She has never seen youth coordinator. Had requested PCP make referral earlier in the fall, but never heard about an appt. -Explains that she needs to take the diuretics, but then develops terrible urinary incontinence. But clarifies that she does NOT skiip diuretic doses at home. (I wish they would just leave the schultz in) Care Team: Primary Care physician: Alphonso Murphy MD, [facility] Medical Ortho: [facility] Urology: [facility] 2022 Pulmonary: Used to see one a [facility], not for years. (note from 2015 in [facility] system after hemothorax). Cardiology: Never had a heart doctor. Social HX: Lives in apartment in [place] with granddaughter Latia (tells me Latia can be helpful at times, but not always). Marital Status: Partner Galo Higgins (comes and goes, does not live with me). 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 APPLICATION IS PENDING. 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 Goals if health worsens: Spending time with granddaughter Maria Luz. Being at home. WOuld only go to [facility] if it was a path to getting back home. Wants to get on Choices for Care. Needs housekeeping services. APPLICATION IS DONE. APPLICATION IS PENDING. Unable to engage in discussion regarding loss of abilities. When asked about fears if her health gets worse, is somewhat tangential. Avoids discussion Impression of currents health status: I don't know. Tells me about her Heart only 55% What bothers you the most: That Zoila De La Garza NP told me that my heart was only 55% (We discussed that her ejection fraction is pretty good). Urinary incontinence: worsened by diuretic. What worries you the most: If my heart is not working. Coping mechanisms: Being with Maria Luz; She's my best medicine Current information preferences: OK to talk today. Function: Ambulation: Wheelchair bound. Can transfer on own. (loose TKR) ADLs: On most days can dress myself, I need help with bathing, but do not have that help or an accesable bathroom. Cannot get into her bathroom AT ALL(doorway too narrow)). Uses commode next to her bed. Landlord will be widening doorway and installing new accessible shower and toilet and sink, but cannot do so yet. iADLs: Latia and Galo help with house cleaning, Had paid aide, not currently. ?who does finances. Does her own cooking. Unclear who shops Hearing: +Hearing aids Vision: NOt queried, uses reading glasses to read [facility] before signing Cognition: Seems intact during my visit. Remembers what day she was admitted. Falls: No Driving: No Palliative Performance Scale % Ambulation Activity and Evidence of Disease Self Care Intake Level of Consciousness 100 Full Normal activity, no evidence of disease Full Normal Full 90 Full Normal activity, some evidence of disease Full Normal Full 80 Full Normal activity with effort, some evidence of disease Full Normal or reduced Full 70 Reduced Unable to do normal work, some evidence of disease Full Normal or reduced Full 60 Reduced Unable to do hobby or some housework, significant disease Occasional assist necessary Normal or reduced Full or confusion 50 Mainly sit/lie Unable to do any work, extensive disease Considerable assistance required Normal or reduced Full or confusion 40 Mainly in bed Unable to do any work, extensive disease Mainly assistance Normal or reduced Full, drowsy, or confusion 30 Totally bed bound Unable to do any work, extensive disease Total care Reduced Full, drowsy, or confusion 20 Totally bed bound Unable to do any work, extensive disease Total care Minimal sips Full, drowsy, or confusion 10 Totally bed bound Unable to do any work, extensive disease Total care Mouth care only Drowsy or coma 0 - - - - Patient Score: 60 Spiritual history: NQ today Palliative review of systems: No time for Query today Pain: Dyspnea: See HPI GI symptoms: Just started eating again with BiPap off (eating grapes) Appetite: Depression: Anxiety: None Emotional Distress: Spiritual/Existential Distress: Labs: Cr: 0.7 Liver panel: MUCH better (tad over NL) Albumin: 2.4 CBC: NL Advanced Care Planning: Advanced Directive: Has no AD(advanced directive filed in her chart is for a Radha Nelson. Young born in 1932. Removed from Chart.) Health Care Agent: 09/11/2024: [facility] co-agents Ingrid Lehman and Galo Higgins COLST: Full code, wishes trial of intubation (See 09/11/2024 PC note) Limitations: NA; Not applicable NQ: Not Queried Assessment and Plan Assessment and plan (1) COPD (chronic obstructive pulmonary disease): Status: Chronic Assessment and plan: Ms. Masterson is an 69-year-old woman with oxygen dependent lung disease (restrictive and/or obstructive disease as per patient and chart) who is now had 4 hospitalizations in the last 3 months for exacerbations of her lung disease. On current admission is the only one in which she required BiPAP and has needed it most of the time for the preceding 24-36 hours. Of note, she usually develops fluid overload from HFpEF during these exacerbations. She continues to need diuretics chronically and this is causing very bothersome urinary incontinence. Patient reports that some morgan she just has repeated exacerbations. This usually happens if she starts getting infections early. Other morgan (like last winter) she does fine. 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 Goals of care: -Patient would be willing to go to residential as a bridge to returning home. -Never wants to be in a residential. However, would not commit to rather being than living in a residential. When I asked her to tell me more about this, she changed subject. -What is most important thing for her is spending time with her granddaughter Maria Luz (2-year-old). Could not spend time with Maria Luz if she was in the residential. So needs to be well enough to return home. I asked her how she would feel if she was in residential and clear could visit her (she never likes to visit me in the hospital ) -She would definitely avail herself of BiPAP again. Found it extremely helpful. She was scared by not being able to wean from CPAP, but is now doing better. Being on BiPAP as made her feel better. -She has experience with family member who had respiratory failure: Her son Lucas was premature and had developmental delay and other medical issues. At age 37, he developed pneumonia and was intubated for 3 days. He was able to be extubated. But then 3 days later went back into respiratory failure. Her older son Ingrid decided along with Lucas (who is nonverbal but was able to communicate with Ingrid) to not get re-intubated and he (2018). She has mixed feelings about this. She which she had been reintubated. -She definitely would want a time limited trial of intubation. I did share with her that if she was intubated for longer than 3 days, she would likely end up so debilitated that she would need to remain in residential for very long time for rehabilitation. She is also aware that some people with COPD become ventilator dependent. At this time she still would want a trial of intubation. She would let Ingrid and Galo decide when to take her off if she was not improving. -We discussed the procedure of CPaR, actual mechanical process, rate of success in restoring heartbeat, short and long-term side effects in survivors (including likely decreased physical and cognitive functioning). Was about 45 minutes into my visit, she had remained off of BiPAP this whole time and was becoming acrocyanotic. Radha also became much more short of breath and felt she had to go back on biPap. She was unable to discuss further at this time. when I asked if Paliative Care could come back and continue discussion with her on another day, She nodded. Health Care Agent: Does not have a form because everyone knows what I want. She wants son Ingrid and boyfriend Galo to be co-agents. She pan snot want other children or any friends or siblings added to list of who can make decisions for her. She agreed to filling out a form. See [facility] form. Other issues: -Choices for Care application was submitted a few weeks ago. -Does not currently have accessible bathroom. Uses commode and sponge baths. Landlord will be installing new doorway and shower and toilet, but not yet. -Wants to be referred to outpatient cardiology. A member of the palliative care team will plan to follow-up with patient in the next few days.. Please call us sooner if patient has change in status. (2) Heart failure with preserved ejection fraction: Status: Acute (3) Palliative care patient: Status: Acute (4) Advanced care planning/counseling discussion: Status: Acute Assessment and plan: 16 to 30 minutes spent today on Advance Care Planning. Patient and family participated voluntarily. Advance care planning may include (not limited to) explanation and discussion of advance directives, choosing and appointing healthcare agents, alternatives to various ACP tools, discussion of (and if indicated, completion of) COLST form, discussion of patient's values and overall goals for treatment, palliative and disease directive care options, ways to avoid hospital readmission including hospice discussions, care preferences should the patient's several other adverse health events.See today's palliative care note for additional information. This note was dictated using speech recognition software. Attempt was made at proofreading, but errors may be present. Please call with questions. [facility] All Active Problems (Updated 09/11/24 @ 13:01 by Alisa Hutchins MD) Advanced care planning/counseling discussion (Acute) Palliative care patient (Acute) Leg wound, left (Acute) On deep vein thrombosis (DVT) prophylaxis (Acute) Wound of left leg (Acute) Acute hypokalemia (Acute) Hypomagnesemia (Acute) Bronchitis (Acute) Pulmonary vascular congestion (Acute) Acute exacerbation of chronic obstructive pulmonary disease (Acute) Elevated liver enzymes (Acute) Asymptomatic bacteriuria (Acute) Sepsis (Acute) CHF (congestive heart failure) (Chronic) Atrial fibrillation (Chronic) COPD (chronic obstructive pulmonary disease) (Chronic) Acute and chronic respiratory failure (Acute) Elevated white blood cell count (Acute) Abnormal liver enzymes (Acute) Chronic obstructive pulmonary disease with acute exacerbation (Acute) Exertional shortness of breath (Acute) Heart failure with preserved ejection fraction (Acute) Wound dehiscence (Acute) Thickened endometrium (Acute) Postmenopausal bleeding (Acute) COPD (chronic obstructive pulmonary disease) (Acute) Laceration of dobson (Acute) GERD (gastroesophageal reflux disease) (Chronic) had negative barium esophagram in 11/2022. Anxiety (Chronic) Venous stasis dermatitis (Acute) Chronic headaches (Chronic) Recent Neurology consult for possible papilledema. Urinary incontinence (Chronic) On Detrol Recurrent UTI (Chronic) Right ventricular dysfunction (Chronic) Knee pain, bilateral (Chronic 07/23/14) s/p bilat TKR (left infected with mult surg and decreased mobility) Morbid obesity (Acute 04/05/13) Sensorineural hearing loss, bilateral (Chronic 08/29/13) Advance directive on file (Acute) Low back pain with sciatica (Chronic 05/03/14) CT at [facility] L34 spinal stenosis Varicose veins of lower extremity (Chronic) Depression (Chronic) Grief at loss of child (Acute) Chronic respiratory failure with hypoxia and hypercapnia (Chronic) home BiPap Status post total bilateral knee replacement (Acute) Sprain of scapholunate ligament (Acute 03/21/19) DAVID (obstructive sleep apnea) (Chronic) on BiPap Hyperglycemia (Acute) Mixed conductive and sensorineural hearing loss of both ears (Acute) Right carpal tunnel syndrome (Acute) Arthritis of right hand (Acute) Impingement of right ulnar nerve (Acute) Dermoid cyst of neck (Acute) Hypothyroidism (Chronic) Microcalcifications of the breast (Acute) Neuropathy of left hand (Acute) Neuropathy of right hand (Acute) Bilateral carpal tunnel syndrome (Acute) Medical History UTI (urinary tract infection) Abnormal urinalysis Lymphedema Community acquired pneumonia Pneumonia Hx pulmonary embolism (~2015) treated with lovenox x 3 months Surgical History Status post thyroidectomy History of fasciotomy History of Surgical Procedure a. Right and left toal knee replacements. b. Left knee has been repeatedly operated on with slava surgies, three replacements. Replacement of total knee joint Bilateral; left-became slugcang-[id number]-[id number] surgeries Fasciotomy, Foot (~1996) LEFT Family History Mother Diabetes Personal history of malignant neoplasm LUNG Father Personal history of malignant neoplasm BRAIN Grandfather No problems noted. Grandfather No problems noted. Grandmother No problems noted. Grandmother No problems noted. Social History Smoking/Tobacco Use Status: Former Tobacco Use tobacco type: cigarettes Quit Date: 01/21/21 Second Hand Exposure: Yes Smoking risk assessment performed?: Yes Alcohol Intake: never Drug use: Never Substance use type: does not use Counseling given: No Housing: house Communication Needs: Hard of Hearing and Corrective Lenses Pets and animals: Yes Pets and animals: cat(s) Sexually active: Yes Current gender identity: female What is your relationship status?: never How often do you talk on the phone with friends or family?: decline to answer How often do you get together with friends or relatives?: decline to answer How often do you attend christianity or religion services?: decline to answer Do you belong to any clubs or organized social groups?: no Panel score (0-1 are the most socially isolated patients): 0 Seatbelt use: never Do you feel safe at home: Yes Do you feel safe in your relationship?: Yes Exam Narrative Exam Narrative: PLeasant and cooperative woman appearing stated age. Alert and appears cognitively intact. Audible wheeaing on and off. Able to speak in complete sentences. Frequent deep wet cough. Towards end of visit, develops acrocyanosis. AT that point I ask if she needs to put BiPap back on. She does so and is able to do so on her own/ Results Last Vital Signs Temp 36.5 C 09/11/24 11:23 Pulse 83 09/11/24 12:30 Resp 22 09/11/24 12:30 BP 128/69 09/11/24 11:23 Pulse Ox 90 L 09/11/24 12:30 Labs 09/11/24 05:53 09/11/24 05:53 Labs: Laboratory Results - last 24 hr 09/10/24 09/11/24 16:45 05:53 WBC 6.72 RBC 4.41 Hgb 11.5 Hct 37.1 MCV 84 MCH 26.1 L MCHC 31.0 L RDW 17.3 H Plt Count 328 MPV 10.2 Immature Gran % See Differential Neutrophils % 84.0 Lymphocytes % 8.0 Atypical Lymphs % 3 Monocytes % 4.0 Eosinophils % 1.0 Basophils % 0.0 Nucleated RBC % 0.0 Absolute Neutrophils 5.64 Absolute Lymphocytes 0.74 L Absolute Monocytes 0.27 Absolute Eosinophils 0.07 Absolute Basophils 0.00 RBC Morphology Normal VBG pH 7.46 H VBG pCO2 50 VBG pO2 104 VBG HCO3 36 H VBG Total CO2 32 H VBG O2 Saturation 99 VBG Base Excess 12 H Sodium 140 Potassium 4.7 Chloride 102 Carbon Dioxide 37.5 H Anion Gap 0.5 L BUN 15 Creatinine 0.7 Est GFR (CKD-EPI 2020) 94.15 Glucose 154 H Calcium 7.6 L Total Bilirubin 0.61 AST 48 H ALT 64 H Alkaline Phosphatase 58 Total Protein 7.1 Albumin 2.4 L Urine Color Yellow Urine Clarity Cloudy Urine pH 6.5 Ur Specific [place] 1.020 Urine Protein 30 H Urine Ketones Negative Urine Blood Large H Urine Nitrite Negative Urine Bilirubin Negative Urine Urobilinogen 1.0 H Ur Leukocyte Esterase Negative Urine RBC >50 H Urine WBC Negative Ur Epithelial Cells Rare Urine Crystals Negative Urine Bacteria Few Urine Casts Negative Urine Mucus Negative Urine Other Negative Ur Culture Indicated? No Urine Glucose Negative Time Spent Time Spent with Patient Time Spent(min): 90
[2024-09-11 17:21] LABS: Ionized Calcium 0.94 mmol/L (1.14-1.35)
--- NOTE | 2024-09-11 17:45 | W.PM.PROGNOT ---
Date of Service Date of service: 09/11/24 Time of Service: 17:45 Assessment and Plan Assessment and plan (1) Sepsis: Status: Acute Assessment and plan: Sepsis criteria met with tachypnea, tachycardia and leukocytosis on admission with respiratory probable source lactic negative Blood cultures pending Negative respiratory viral panel no focal consolidation on xray continue ceftriaxone day 3 (also covering possible leg infection) add doxycycline for full respiratory coverage. If fever re-image lungs and expand coverage. 09.10.24 Pt is on rocepthin and doxy day #3 for abx coverage. CBC pending in AM 09.11.24 stopped abx today (2) Acute exacerbation of chronic obstructive pulmonary disease: Status: Acute Assessment and plan: Methylprednisolone given in the ED, now written for oral prednisone but not getting PO meds. Back to IV methylprednisolone for now. on abx as above. Nebulizers treatment schedule and as needed Mucinex I-S Acapella 09.10.24 Pt is on albuterol/duonep/methyprednisolone at 60 mg q8 (3) Leg wound, left: Status: Acute Assessment and plan: On Keflex prior to admission x 24-48 hours Now receiving ceftriaxone Reassess need for Keflex resumption if ceftriaxone is discontinued Wound consult completed, no change today (4) Heart failure with preserved ejection fraction: Status: Acute Assessment and plan: Last EF in 04/03/2024 was 55%. given one dose of IV lasix, now on home dose, but not getting oral meds. I do think CHF contributing, will give IV furosemide 40mg BID Consider additional dose of IV Lasix as needed 09.10.24 Pt down appx 2 liters of fluid since admission. Weight on admission was 179kg and now at 188.9kg? Will d/w ICU staff. 09.11.24 Pt continues to have fairly brisk diuresis. Will increased lasix dose to 60mg po bid (5) Acute hypokalemia: Status: Acute Assessment and plan: continue to replete and follow (6) Hypomagnesemia: Status: Acute Assessment and plan: continue to replete and follow (7) On deep vein thrombosis (DVT) prophylaxis: Status: Acute Assessment and plan: On lovenox, will d/w pharmacy bid dosing 2/2 BMI 09.11.24 Pt on lovenox 60 mg sq bid 2/2 BMI (8) Discharge planning issues: Status: Resolved Assessment and plan: To ICU status today, back to floor when stabilizes from respiratory standpoint. Discharge home when medically stable with home health services Ordered cbc/cmp/ionized calcium/palliative care/ Subjective Subjective Interval history since last seen: Pt seen and examined in her room this am. Resting comfortably Exam Narrative Exam Narrative: Gen: Alert and oriented, sitting up in bed with BiPAP, coopreative, speaks in short sentences with increased tachypnea holding mask from face Resp: Coarse breath sounds bilaterally, but decent air movement, some expiratory wheezing throughout lung dubose, no rales Cardio: regular rhythm, distant GI: Abdomen is large, not distended, soft and non tender, bowel sounds are present Extremities: Moves all 4 extremities Skin: Left lower leg wound covered with Mepilex without profuse drainage; no erythema seen around wounds, gu: schultz in place Objective Last Vital Signs Temp 36.8 C 09/11/24 15:56 Pulse 93 H 09/11/24 16:01 Resp 21 09/11/24 16:01 BP 112/45 L 09/11/24 16:01 Pulse Ox 89 L 09/11/24 16:01 Laboratory Results - last 24 hr 09/11/24 05:53 WBC 6.72 RBC 4.41 Hgb 11.5 Hct 37.1 MCV 84 MCH 26.1 L MCHC 31.0 L RDW 17.3 H Plt Count 328 MPV 10.2 Immature Gran % See Differential Neutrophils % 84.0 Lymphocytes % 8.0 Atypical Lymphs % 3 Monocytes % 4.0 Eosinophils % 1.0 Basophils % 0.0 Nucleated RBC % 0.0 Absolute Neutrophils 5.64 Absolute Lymphocytes 0.74 L Absolute Monocytes 0.27 Absolute Eosinophils 0.07 Absolute Basophils 0.00 RBC Morphology Normal VBG pH 7.46 H VBG pCO2 50 VBG pO2 104 VBG HCO3 36 H VBG Total CO2 32 H VBG O2 Saturation 99 VBG Base Excess 12 H Sodium 140 Potassium 4.7 Chloride 102 Carbon Dioxide 37.5 H Anion Gap 0.5 L BUN 15 Creatinine 0.7 Est GFR (CKD-EPI 2020) 94.15 Glucose 154 H Calcium 7.6 L Total Bilirubin 0.61 AST 48 H ALT 64 H Alkaline Phosphatase 58 Total Protein 7.1 Albumin 2.4 L Time Spent with Patient Time Spent with Patient: 35-49 minutes Time was spent: preparing to see the patient(eg.review tests), obtaining and/or reviewing separately otained hiistory, ordering medications,tests, procedures, referring, communicating with other health career development counselor, indepentently interpreting results, counseling the patient and care coordination
[2024-09-11] MEDS: Enoxaparin 60 MG/0.6 ML SYR SC (19:53)
[2024-09-12] VITALS (39 sets, daily range): BP systolic 110–145; BP diastolic 58–86; PULSE 74–100; RESP 5–29; TEMP 36.8–37.2; O2SAT 88–95
[2024-09-12] MEDS: Normal Saline Flush 10 ML SYR IVP ×4 (00:07→19:59)
[2024-09-12] MEDS: methylPREDNISolone SUCC 125 MG VIAL 60 MG IVP ×3 (00:08→16:00)
[2024-09-12] MEDS: Albuterol 2.5 MG/3 ML INH SOLN VIAL UPD (00:27)
[2024-09-12 06:02] LABS: Abs Immature Grans 0.05 10^3/uL (0.0-0.06); HGB 12.2 g/dL (11.2-15.7); MCH 25.8 pg (27.0-33.0); MCHC 31.3 % (32.0-36.0); MCV 83 fL (80-95); MPV 10.5 fL (8.0-11.0); Platelet Count 349 10^3/uL (130-400); RBC 4.73 10^6/uL (3.93-5.22); RDW 17.3 % (11.7-14.6); RDW-SD 52.1 fL
[2024-09-12] MEDS: Levothyroxine 100 MCG TAB 200 MCG PO (06:13)
[2024-09-12 06:21] LABS: ALT 62 U/L (14-59); AST 38 U/L (15-37); Albumin 2.3 g/dL (3.4-5.0); Alkaline Phosphatase 61 U/L (46-116); Anion Gap 0 mmol/L (3-11); BUN 17 mg/dL (7-18); CREATININE 0.7 mg/dL (0.55-1.02); Calcium 7.5 mg/dL (8.5-10.1); Chloride 102 mmol/L (98-107); Estimated GFR 94.15 (mL/min/1.73m2); Glucose 164 mg/dL (74-106); Potassium 4.8 mmol/L (3.5-5.1); Sodium 140 mmol/L (136-145); Total Protein 6.9 g/dL (6.4-8.2)
[2024-09-12 06:45] LABS: Absolute Lymphocyte Count 1.01 10^3/uL (1.2-3.4); Absolute Monocyte Count 0.31 10^3/uL (0.1-0.8); Absolute Neutrophil Count 6.47 10^3/uL (1.2-6.7); Atypical Lymphocytes % 1 %; Diff Comment Manual Differential; RBC Morphology Normal
[2024-09-12] MEDS: Albuterol/Ipratropium 3 ML UPD VIAL IH ×4 (07:56→20:17)
--- NOTE | 2024-09-12 08:56 | CMPROGNOTE_ITS ---
Date of service: 09/12/24 Time of Service: 08:56 Care Management Progress Note Progress Note Text Progress Note Text: Radha was sleeping soundly both times CM attempted to meet with her today. She continues to wear her Bipap when she is sleeping but has been able to transition to nasal cannula when awake. Radah remains in the ICU but has been downgraded to Med-Surg status. The unit has been full but hopefully a bed qwiull become available tomorrow. Per nursing, Radha has noted some improvement in her peripheral edema. Discharge Potential Discharge Needs: PCP F/U Appt Anticipated Barriers to Discharge: Medical Status Patient/Family Education Needs: Review discharge instructions, discuss Ask Me Three Transportation: Private vehicle Plan: Anticipate Radha will be discharged home with a resumption of her home health services. She will follow up with her PCP and plan of care and transport with family via private vehicle. CM will follow and continue to asses for discharge needs. Social Determinants of Health Screening Social Determinants of Health last assessed: 09/12/24 Will the Patient Participate in the Screening?: Yes Do you worry about having a steady place to live?: no Problems where you live: no known problems In the past 12 months, have you had to go without electric, gas, oil or water in your home?: no Have you or anyone in your house had to go without enough food to eat?: no Has lack of transportation kept you from medical appointments or from doing things needed for daily living?: no Has anyone in your life made you feel unsafe or unsupported?: no How hard is it for you to pay for the very basics like food, housing, medical care, and heating? Would you say it is:: Not hard at all Do you want help finding or keeping work or a job?: I do not need or want help If for any reason you need help with day-to-day activities such as bathing, preparing meals, shopping, managing finances, etc., do you get the help you need?: I could use a little more help How often do you feel lonely or isolated from those around you?: Never Do you speak a language other than Salvadorean at home?: No Does the patient want assistance with any of the above?: No Health Related Social Needs Health related social needs: problems with daily activities (Z73.9)
[2024-09-12] MEDS: Fluticasone NASAL SPRAY 16 GM BTL NS (09:07)
[2024-09-12] MEDS: Furosemide 40 MG/4 ML VIAL 60 MG IVP ×2 (09:11→15:59)
[2024-09-12] MEDS: Nystatin POWDER 15 GM JAR TP (09:12)
[2024-09-12] MEDS: Norethindrone 5 MG TAB 10 MG PO ×2 (09:13→19:59)
[2024-09-12] MEDS: Potassium Chloride 20 MEQ TABCR PO (09:13)
[2024-09-12] MEDS: Ascorbic Acid 500 MG TAB 1000 MG PO (09:13)
[2024-09-12] MEDS: Bacitracin 1 PACKET TP (09:14)
[2024-09-12] MEDS: Enoxaparin 60 MG/0.6 ML SYR SC ×2 (09:17→19:58)
[2024-09-12] MEDS: guaiFENesin 600 MG TABCR PO ×2 (09:17→19:59)
[2024-09-12] MEDS: Pantoprazole 40 MG TABCR PO (09:18)
[2024-09-12] MEDS: Sertraline 50 MG TAB PO (09:18)
[2024-09-12] MEDS: Ferrous Sulfate 325 MG TAB PO (09:18)
--- NOTE | 2024-09-12 17:24 | W.PM.PROGNOT ---
Date of Service Date of service: 09/12/24 Time of Service: 17:24 Assessment and Plan Assessment and plan (1) Sepsis: Status: Acute Assessment and plan: Sepsis criteria met with tachypnea, tachycardia and leukocytosis on admission with respiratory probable source lactic negative Blood cultures pending Negative respiratory viral panel no focal consolidation on xray continue ceftriaxone day 3 (also covering possible leg infection) add doxycycline for full respiratory coverage. If fever re-image lungs and expand coverage. 09.10.24 Pt is on rocepthin and doxy day #3 for abx coverage. CBC pending in AM 09.11.24 stopped abx today (2) Acute exacerbation of chronic obstructive pulmonary disease: Status: Acute Assessment and plan: Methylprednisolone given in the ED, now written for oral prednisone but not getting PO meds. Back to IV methylprednisolone for now. on abx as above. Nebulizers treatment schedule and as needed Mucinex I-S Acapella 09.10.24 Pt is on albuterol/duonep/methyprednisolone at 60 mg q8 (3) Leg wound, left: Status: Acute Assessment and plan: On Keflex prior to admission x 24-48 hours Now receiving ceftriaxone Reassess need for Keflex resumption if ceftriaxone is discontinued Wound consult completed, no change today (4) Heart failure with preserved ejection fraction: Status: Acute Assessment and plan: Last EF in 04/03/2024 was 55%. given one dose of IV lasix, now on home dose, but not getting oral meds. I do think CHF contributing, will give IV furosemide 40mg BID Consider additional dose of IV Lasix as needed 09.10.24 Pt down appx 2 liters of fluid since admission. Weight on admission was 179kg and now at 188.9kg? Will d/w ICU staff. 09.11.24 Pt continues to have fairly brisk diuresis. Will increased lasix dose to 60mg po bid 09.11.24 down 1.5 kg over last 24 hours with -1300, cw current plan (5) Acute hypokalemia: Status: Acute Assessment and plan: continue to replete and follow (6) Hypomagnesemia: Status: Acute Assessment and plan: continue to replete and follow (7) On deep vein thrombosis (DVT) prophylaxis: Status: Acute Assessment and plan: On lovenox, will d/w pharmacy bid dosing 2/2 BMI 1.28.25 Pt on lovenox 60 mg sq bid 2/2 BMI (8) Discharge planning issues: Status: Resolved Assessment and plan: To ICU status today, back to floor when stabilizes from respiratory standpoint. Discharge home when medically stable with home health services Ordered cbc/cmp/ionized calcium/palliative care/ Subjective Subjective Interval history since last seen: Pt seen and examined this am. POC d/w bedside nurse during ICU huddle Exam Narrative Exam Narrative: Gen: resting comfortably in bed with BiPAP, coopreative, speaks in short sentences with increased tachypnea holding mask from face Resp: Coarse breath sounds bilaterally, but decent air movement, some expiratory wheezing throughout lung dubose, no rales Cardio: regular rhythm, distant GI: Abdomen is large, not distended, soft and non tender, bowel sounds are present Extremities: Moves all 4 extremities Skin: Left lower leg wound covered with Mepilex without profuse drainage; no erythema seen around wounds, gu: schultz in place Objective Last Vital Signs Temp 36.8 C 09/12/24 16:00 Pulse 79 09/12/24 16:11 Resp 22 09/12/24 16:11 BP 145/74 H 09/12/24 16:11 Pulse Ox 90 L 09/12/24 16:11 Laboratory Results - last 24 hr 09/11/24 09/12/24 05:53 05:39 WBC 7.80 RBC 4.73 Hgb 12.2 Hct 39.0 MCV 83 MCH 25.8 L MCHC 31.3 L RDW 17.3 H Plt Count 349 MPV 10.5 Immature Gran % See Differential Neutrophils % 83.0 Lymphocytes % 12.0 Atypical Lymphs % 1 Monocytes % 4.0 Eosinophils % 0.0 Basophils % 0.0 Nucleated RBC % 0.0 Absolute Neutrophils 6.47 Absolute Lymphocytes 1.01 L Absolute Monocytes 0.31 Absolute Eosinophils 0.00 Absolute Basophils 0.00 RBC Morphology Normal Sodium 140 Potassium 4.8 Chloride 102 Carbon Dioxide 38.0 H Anion Gap 0 L BUN 17 Creatinine 0.7 Est GFR (CKD-EPI 2020) 94.15 Glucose 164 H Calcium 7.5 L Ionized Calcium 0.94 L Total Bilirubin 0.60 AST 38 H ALT 62 H Alkaline Phosphatase 61 Total Protein 6.9 Albumin 2.3 L Time Spent with Patient Time Spent with Patient: 25-34 minutes Time was spent: preparing to see the patient(eg.review tests), obtaining and/or reviewing separately otained hiistory, ordering medications,tests, procedures, referring, communicating with other health emergency care attendant, indepentently interpreting results, counseling the patient and care coordination
[2024-09-13] VITALS (25 sets, daily range): BP systolic 109–140; BP diastolic 47–74; PULSE 75–98; RESP 2–37; TEMP 36.6–38.9; O2SAT 88–96
[2024-09-13] MEDS: methylPREDNISolone SUCC 125 MG VIAL 60 MG IVP ×3 (00:49→16:55)
[2024-09-13] MEDS: Normal Saline Flush 10 ML SYR IVP ×3 (00:50→21:38)
[2024-09-13 06:06] LABS: Abs Immature Grans 0.06 10^3/uL (0.0-0.06); Absolute Basophil Count 0.01 10^3/uL (0.0-0.2); Absolute Lymphocyte Count 0.71 10^3/uL (1.2-3.4); Absolute Neutrophil Count 7.15 10^3/uL (1.2-6.7); Basophils % 0.1 %; HCT 40.1 % (36.0-46.0); HGB 12.6 g/dL (11.2-15.7); Immature Grans % 0.7 %; Lymphocytes % 8.6 %; MCH 25.8 pg (27.0-33.0); MCHC 31.4 % (32.0-36.0); MCV 82 fL (80-95); MPV 10.2 fL (8.0-11.0); Monocytes % 3.6 %; Platelet Count 332 10^3/uL (130-400); RBC 4.88 10^6/uL (3.93-5.22); RDW-SD 51.1 fL; WBC 8.23 10^3/uL (4.4-10.8)
[2024-09-13] MEDS: Levothyroxine 100 MCG TAB 200 MCG PO (06:13)
[2024-09-13 06:26] LABS: ALT 62 U/L (14-59); AST 35 U/L (15-37); Albumin 2.4 g/dL (3.4-5.0); Alkaline Phosphatase 61 U/L (46-116); Anion Gap 0.4 mmol/L (3-11); BUN 19 mg/dL (7-18); CO2 38.6 mmol/L (21.0-32.0); CREATININE 0.7 mg/dL (0.55-1.02); Calcium 7.7 mg/dL (8.5-10.1); Chloride 99 mmol/L (98-107); Estimated GFR 94.15 (mL/min/1.73m2); Glucose 142 mg/dL (74-106); Sodium 138 mmol/L (136-145); Total Protein 6.9 g/dL (6.4-8.2)
[2024-09-13] MEDS: Albuterol/Ipratropium 3 ML UPD VIAL IH ×4 (07:55→21:06)
--- NOTE | 2024-09-13 08:43 | PDOC.CMPRO ---
Date of service: 09/13/24 Time of Service: 08:43 Care Management Progress Note Progress Note Text Progress Note Text: Radha was sitting up in bed when CM met with her. She was wearing nasal oxygen and not Bipap and informed CM that she is finally feeling better. She did share that she has had more episodes of staff coming into her room wearing scent (perfume, cologne etc) and is very upset by it. CM contacted the Patient Experience Officer who has agreed to follow up. Radha shared that she believes that she will be discharged home tomorrow and she feels ready. CM came prepared to assist Radha with advanced directives as previously requested, but she declined. Dr. Hutchins had seen her for a Palliative Care consult earlier and helped her complete a Healthcare Agent form. Radha explained that that was the most important thing to her and she was satisfied it was done. Discharge Potential Discharge Needs: PCP F/U Appt Anticipated Barriers to Discharge: Medical Status Patient/Family Education Needs: Review discharge instructions, discuss Ask Me Three Transportation: Private vehicle Plan: Anticipate Radha will be discharged home with a resumption of her home health services. She will follow up with her PCP and plan of care and transport with family via private vehicle. CM will follow and continue to asses for discharge needs. Social Determinants of Health Screening Social Determinants of Health last assessed: 09/13/24 Will the Patient Participate in the Screening?: Yes Do you worry about having a steady place to live?: no Problems where you live: no known problems In the past 12 months, have you had to go without electric, gas, oil or water in your home?: no Have you or anyone in your house had to go without enough food to eat?: no Has lack of transportation kept you from medical appointments or from doing things needed for daily living?: no Has anyone in your life made you feel unsafe or unsupported?: no How hard is it for you to pay for the very basics like food, housing, medical care, and heating? Would you say it is:: Not hard at all Do you want help finding or keeping work or a job?: I do not need or want help If for any reason you need help with day-to-day activities such as bathing, preparing meals, shopping, managing finances, etc., do you get the help you need?: I could use a little more help How often do you feel lonely or isolated from those around you?: Never Do you speak a language other than Turkish at home?: No Does the patient want assistance with any of the above?: No Health Related Social Needs Health related social needs: problems with daily activities (Z73.9)
[2024-09-13] MEDS: Furosemide 40 MG/4 ML VIAL 60 MG IVP ×2 (08:47→16:56)
[2024-09-13] MEDS: Enoxaparin 60 MG/0.6 ML SYR SC ×2 (08:48→21:39)
[2024-09-13] MEDS: Pantoprazole 40 MG TABCR PO (08:49)
[2024-09-13] MEDS: Calcium 600mg/Vit D 200U TAB 1 TAB PO ×2 (08:49→21:06)
[2024-09-13] MEDS: Bacitracin 1 PACKET TP (08:50)
[2024-09-13] MEDS: Sertraline 50 MG TAB PO (08:50)
[2024-09-13] MEDS: guaiFENesin 600 MG TABCR PO ×2 (08:50→21:06)
[2024-09-13] MEDS: Potassium Chloride 20 MEQ TABCR PO (08:50)
[2024-09-13] MEDS: Ascorbic Acid 500 MG TAB 1000 MG PO (08:50)
[2024-09-13] MEDS: Norethindrone 5 MG TAB 10 MG PO ×2 (08:50→21:06)
[2024-09-13] MEDS: Fluticasone NASAL SPRAY 16 GM BTL NS (09:19)
[2024-09-13] MEDS: Nystatin POWDER 15 GM JAR TP ×2 (09:20→21:40)
--- NOTE | 2024-09-13 17:39 | PGE_ITS ---
Date of Service Date of service: 09/13/24 Time of Service: 17:39 Assessment and Plan Assessment and plan (1) Sepsis: Status: Acute Assessment and plan: Sepsis criteria met with tachypnea, tachycardia and leukocytosis on admission with respiratory probable source lactic negative Blood cultures pending Negative respiratory viral panel no focal consolidation on xray continue ceftriaxone day 3 (also covering possible leg infection) add doxycycline for full respiratory coverage. If fever re-image lungs and expand coverage. 09.10.24 Pt is on rocepthin and doxy day #3 for abx coverage. CBC pending in AM 09.11.24 stopped abx today 09.13.24 appears to have resolved (2) Acute exacerbation of chronic obstructive pulmonary disease: Status: Acute Assessment and plan: Methylprednisolone given in the ED, now written for oral prednisone but not getting PO meds. Back to IV methylprednisolone for now. on abx as above. Nebulizers treatment schedule and as needed Mucinex I-S Acapella 09.10.24 Pt is on albuterol/duonep/methyprednisolone at 60 mg q8 09.13.24 Continues to improve (3) Leg wound, left: Status: Acute Assessment and plan: On Keflex prior to admission x 24-48 hours Now receiving ceftriaxone Reassess need for Keflex resumption if ceftriaxone is discontinued Wound consult completed, no change today (4) Heart failure with preserved ejection fraction: Status: Acute Assessment and plan: Last EF in 04/03/2024 was 55%. given one dose of IV lasix, now on home dose, but not getting oral meds. I do think CHF contributing, will give IV furosemide 40mg BID Consider additional dose of IV Lasix as needed 09.10.24 Pt down appx 2 liters of fluid since admission. Weight on admission was 179kg and now at 188.9kg? Will d/w ICU staff. 09.11.24 Pt continues to have fairly brisk diuresis. Will increased lasix dose to 60mg po bid 09.11.24 down 1.5 kg over last 24 hours with -1300, cw current plan 09.13.24 Pt continues to have good diuresis with a 5k weight loss documented over the last 24 hours (5) Acute hypokalemia: Status: Acute Assessment and plan: continue to replete and follow 09.13.24 Resolved, current k is 5.0 (6) Hypomagnesemia: Status: Acute Assessment and plan: continue to replete and follow 09/13/24 Last draw on 09/10/24 showed 2.1 wnl (7) On deep vein thrombosis (DVT) prophylaxis: Status: Acute Assessment and plan: On lovenox, will d/w pharmacy bid dosing 2/2 BMI 1.28.25 Pt on lovenox 60 mg sq bid 2/2 BMI (8) Discharge planning issues: Status: Resolved Assessment and plan: To ICU status today, back to floor when stabilizes from respiratory standpoint. Discharge home when medically stable with home health services Ordered cbc/cmp/ionized calcium/palliative care/ Subjective Subjective Interval history since last seen: Pt states that she is feeling better and is planning on discharging tomorrow. Exam Narrative Exam Narrative: Gen: no respiratory distress Resp: Pt on room air and speaking in complete sentences with no AMU Cardio: regular rhythm, distant GI: Abdomen is large, not distended, soft and non tender, bowel sounds are present Extremities: Moves all 4 extremities Skin: Left lower leg wound covered with Mepilex without profuse drainage; no erythema seen around wounds, gu: schultz in place Objective Last Vital Signs Temp 38.9 C H 09/13/24 15:32 Pulse 93 H 09/13/24 17:24 Resp 21 09/13/24 17:24 BP 140/71 09/13/24 08:01 Pulse Ox 91 L 09/13/24 17:24 Laboratory Results - last 24 hr 09/13/24 05:40 WBC 8.23 RBC 4.88 Hgb 12.6 Hct 40.1 MCV 82 MCH 25.8 L MCHC 31.4 L RDW 17.0 H Plt Count 332 MPV 10.2 Immature Gran % 0.7 Neutrophils % 87.0 Lymphocytes % 8.6 Monocytes % 3.6 Eosinophils % 0.0 Basophils % 0.1 Nucleated RBC % 0.0 Absolute Neutrophils 7.15 H Absolute Lymphocytes 0.71 L Absolute Monocytes 0.30 Absolute Eosinophils 0.00 Absolute Basophils 0.01 Sodium 138 Potassium 5.0 Chloride 99 Carbon Dioxide 38.6 H Anion Gap 0.4 L BUN 19 H Creatinine 0.7 Est GFR (CKD-EPI 2020) 94.15 Glucose 142 H Calcium 7.7 L Total Bilirubin 0.70 AST 35 ALT 62 H Alkaline Phosphatase 61 Total Protein 6.9 Albumin 2.4 L Time Spent with Patient Time Spent with Patient: 25-34 minutes Time was spent: preparing to see the patient(eg.review tests), obtaining and/or reviewing separately otained hiistory, ordering medications,tests, procedures, referring, communicating with other health personal care assistant, indepentently interpreting results, counseling the patient and care coordination
[2024-09-14] VITALS (18 sets, daily range): BP systolic 105–137; BP diastolic 49–75; PULSE 56–96; RESP 2–28; TEMP 37.5; O2SAT 86–93
[2024-09-14] MEDS: methylPREDNISolone SUCC 125 MG VIAL 60 MG IVP ×2 (00:56→10:38)
[2024-09-14] MEDS: Normal Saline Flush 10 ML SYR IVP ×2 (00:57→10:42)
[2024-09-14] MEDS: Levothyroxine 100 MCG TAB 200 MCG PO (05:53)
[2024-09-14] MEDS: Albuterol/Ipratropium 3 ML UPD VIAL IH (07:23)
--- NOTE | 2024-09-14 08:26 | DSE_ITS ---
Date of service: 09/14/24 Time of Service: 08:26 DS: Diagnosis Discharge Diagnosis (1) Sepsis: Status: Acute (2) Acute exacerbation of chronic obstructive pulmonary disease: Status: Acute (3) Leg wound, left: Status: Acute (4) Heart failure with preserved ejection fraction: Status: Acute (5) Acute hypokalemia: Status: Acute (6) Hypomagnesemia: Status: Acute (7) On deep vein thrombosis (DVT) prophylaxis: Status: Acute (8) Discharge planning issues: Status: Resolved Discharge Plan Disposition Patient Disposition: Home W/Home Health Services Condition: Improving Discharge Details Reason For Visit: Acute COPD Exacerbation,Bronchitis,Hypokalemia,Hyp Admit Date/Time: 09/07/24 14:15 Admit Provider: Brandan Hicks Attending Provider: Brandan Hicks Primary Care Provider: Alphonso Murphy Hospital Course Hospital Course: This is a 69-year-old female who was admitted on 07 September for a COPD/CHF exacerbation. While she was in the hospital she did decompensate to the point that she needed to be transferred to the ICU. Patient's respiratory status did improve over the ensuing 3 to 4 days. On 14 September I recommended discharge to which she readily agreed. While she was in the hospital she was seen in co nsultation with wound care and case management. Patient was also seen in consultation by palliative care. At the time of discharge the patient asked to maintain her Schultz for concerns about maceration from incontinence. Right states that the patient can maintain his Schultz as long as she sees there PCP and 3 to 5 days and it can be removed at that time. Patient agreed to this course of action. When I saw the patient this a.m. she was on room air only. In regards to imaging the patient did have a chest x-ray on the as well as the . This x-ray was read as cardiomegaly as well as pulmonary edema patient was noted to have hypocalcemia and this will be replaced in the outpatient setting as her ionized calcium level was 0.94. Otherwise her labs look benign. Patient will need to have close follow-up in the outpatient setting to optimize treatment for CHF as well as her COPD. Of note she did get a echocardiogram done in May 2024 which showed a grossly normal left ventricular size and function but was suboptimal. Home Meds and New Rx's Prescriptions: New calcium carbonate-vitamin D3 600 mg-5 mcg (200 unit) Tablet 1 tab PO BID Qty: 30 0RF Continued Zepbound 2.5 mg/0.5 mL pen injector 2.5 mg subcut QWEEK Qty: 2 0RF Rx Instructions: for 4 weeks albuterol sulfate 90 mcg/actuation HFA aerosol inhaler 1 - 2 puff Inhalation Q6H PRN Qty: 1 11RF ipratropium-albuterol 0.5 mg-3 mg(2.5 mg base)/3 mL solution for nebulization 3 ml IH QID MDD 4 nebs Qty: 180 3RF fluticasone propionate [Flonase Allergy Relief] 50 mcg/actuation spray,suspension 1 spray NS DAILY Qty: 1 8RF potassium chloride [Klor-Con M20] 20 mEq tablet,ER particles/crystals 20 meq PO DAILY Qty: 90 3RF ascorbic acid (vitamin C) 1,000 MG tablet 1,000 mg PO DAILY (DME) Aerochamber Mini 1 EACH spacer 1 ea Inhalation PRN Qty: 1 Rx Instructions: DIRECTED WITH INHALER BiPAP Inhalation Gas 5 l IN DIRECTED Rx Instructions: sleep apnea ([facility] sleep lab 2013) uses with oxygen betamethasone, augmented 0.05 % lotion 1 applic topical BID PRN (Reason: allergic reaction) Qty: 60 2RF levothyroxine 200 mcg tablet 200 mcg PO DAILY Qty: 90 3RF oxygen Inhalation 3 l Intranasal DIRECTED Patient Comments: Continuous and uses with bipap Rx Instructions: 3L/NC continuous alclometasone 0.05 % cream 1 applic topical BID PRN (Reason: itching) Qty: 45 1RF ketoconazole 2 % cream 1 applic topical BID PRN (Reason: facial rash) Qty: 60 1RF furosemide 80 mg tablet 80 mg PO BID@0830,1600 Qty: 60 0RF pantoprazole 20 mg tablet,delayed release (DR/EC) 20 mg PO DAILY Qty: 90 3RF Rx Instructions: 04/13/23 Per GI. -hb sertraline 50 mg tablet 50 mg PO DAILY Qty: 90 3RF cephalexin 500 mg capsule 500 mg PO QID Qty: 28 0RF norethindrone acetate 5 mg tablet 10 mg PO BID Qty: 180 1RF ferrous sulfate 325 mg (65 mg iron) tablet 325 mg PO Q OTHER DAY Qty: 15 2RF nystatin 100,000 unit/gram powder 1 applic TP BID Qty: 30 5RF BiomePRO 50 billion cell capsule,delayed release(DR/EC) 1 cap PO DAILY Qty: 4 0RF Rx Instructions: Take 3 hours apart form any antibiotics prednisone 20 mg tablet 40 mg PO DAILY Qty: 6 0RF Discontinued prednisone 20 mg Tablet 40 mg PO DAILY Qty: 5 0RF Discharge Instructions Referrals: Alphonso Murphy MD [Primary Care Provider] - (follow up in 3-5 days) Activity:: Activity as Tolerated Equipment/Supplies:: schultz Diet:: As Tolerated Discharge Orders Discharge Orders: Discharge Order (Routine); Ordered 09/14/24 Ordered By: Juan Cesar DS: Summary Time Spent with Patient providing and/or coordinating discharge services: Greater than 30 minutes Status at Discharge Functional status at discharge: uses cane/walker Overall status at discharge: patient is back to baseline Mental Status: mental status grossly normal Speech and Movement: speech and movement normal Mood: congruent mood Affect: normal affect Quality:SDOH Health Related Social Needs: Health related social needs problems with daily activi ties (Z73.9) Exam Narrative Exam Narrative: Gen: no respiratory distress Resp: Pt on room air and speaking in complete sentences with no AMU Cardio: regular rhythm, distant GI: Abdomen is large, not distended, soft and non tender, bowel sounds are present Extremities: Moves all 4 extremities Skin: Left lower leg wound covered with Mepilex without profuse drainage; no erythema seen around wounds, gu: schultz in place Psych Mental Status: mental status grossly normal Speech and Movement: speech and movement normal Mood: congruent mood Affect: normal affect DS: Data Vitals/I&O Vitals and I&O: Vital Signs Temperature 38.9 C H 09/13/24 15:32 Temperature Source Temporal Artery Scan 09/13/24 15:32 Pulse 88 09/14/24 07:23 Pulse Rhythm Regular 09/07/24 15:03 Pulse 87 09/13/24 16:00 Respiratory Rate 25 H 09/14/24 07:23 Respiratory Effort Labored, Accessory Muscle Use, Incrsd Work of Breathing 09/08/24 10:40 Respiratory Depth Shallow 09/07/24 15:03 Respiratory Pattern Tachypnea 09/07/24 15:03 Blood Pressure 140/71 09/13/24 08:01 Blood Pressure Mean 91 09/13/24 08:01 Blood Pressure Position Sitting 09/07/24 11:59 Pulse Oximetry 90 L 09/14/24 07:23 Oxygen Delivery Method Bi-pap 09/14/24 07:23 Oxygen Flow Rate 3 09/13/24 17:24 Fraction of Inspired Oxygen (FIO2) 28 09/13/24 07:57 Pain Level 0 09/11/24 15:56 Comment RN notified. 09/08/24 11:18 Intake & Output 09/13/24 09/13/24 09/14/24 11:59 23:59 11:59 Intake Total 520 / 520 Output Total 1750 / 4800 3050 / 4800 850 / 850 Balance -1230 / -4280 -3050 / -4280 -850 / -850 Weight 180.4 kg Intake: Oral 520 / 520 Output: Urine 1750 / 4800 3050 / 4800 850 / 850 Other: Urine Color Yellow Yellow Light Anay Urine Appearance Clear Clear Clear Clots Stool Size Small Stool Characteristics Soft Brown PFSH All Active Problems (Updated 09/14/24 @ 08:25 by Juan Cesar MD) Advanced care planning/counseling discussion (Acute) Palliative care patient (Acute) Leg wound, left (Acute) On deep vein thrombosis (DVT) prophylaxis (Acute) Wound of left leg (Acute) Acute hypokalemia (Acute) Hypomagnesemia (Acute) Bronchitis (Acute) Pulmonary vascular congestion (Acute) Acute exacerbation of chronic obstructive pulmonary disease (Acute) Elevated liver enzymes (Acute) Asymptomatic bacteriuria (Acute) Sepsis (Acute) CHF (congestive heart failure) (Chronic) Atrial fibrillation (Chronic) COPD (chronic obstructive pulmonary disease) (Chronic) Acute and chronic respiratory failure (Acute) Elevated white blood cell count (Acute) Abnormal liver enzymes (Acute) Chronic obstructive pulmonary disease with acute exacerbation (Acute) Exertional shortness of breath (Acute) Heart failure with preserved ejection fraction (Acute) Wound dehiscence (Acute) Thickened endometrium (Acute) Postmenopausal bleeding (Acute) COPD (chronic obstructive pulmonary disease) (Acute) Laceration of dobson (Acute) GERD (gastroesophageal reflux disease) (Chronic) had negative barium esophagram in 11/2022. Anxiety (Chronic) Venous stasis dermatitis (Acute) Chronic headaches (Chronic) Recent Neurology consult for possible papilledema. Urinary incontinence (Chronic) On Detrol Recurrent UTI (Chronic) Right ventricular dysfunction (Chronic) Knee pain, bilateral (Chronic 07/23/14) s/p bilat TKR (left infected with mult surg and decreased mobility) Morbid obesity (Acute 04/05/13) Sensorineural hearing loss, bilateral (Chronic 08/29/13) Advance directive on file (Acute) Low back pain with sciatica (Chronic 05/03/14) CT at [facility] L34 spinal stenosis Varicose veins of lower extremity (Chronic) Depression (Chronic) Grief at loss of child (Acute) Chronic respiratory failure with hypoxia and hypercapnia (Chronic) home BiPap Status post total bilateral knee replacement (Acute) Sprain of scapholunate ligament (Acute 03/21/19) DAVID (obstructive sleep apnea) (Chronic) on BiPap Hyperglycemia (Acute) Mixed conductive and sensorineural hearing loss of both ears (Acute) Right carpal tunnel syndrome (Acute) Arthritis of right hand (Acute) Impingement of right ulnar nerve (Acute) Dermoid cyst of neck (Acute) Hypothyroidism (Chronic) Microcalcifications of the breast (Acute) Neuropathy of left hand (Acute) Neuropathy of right hand (Acute) Bilateral carpal tunnel syndrome (Acute) Medical History UTI (urinary tract infection) Abnormal urinalysis Lymphedema Community acquired pneumonia Pneumonia Hx pulmonary embolism (~2015) treated with lovenox x 3 months Surgical History Status post thyroidectomy History of fasciotomy History of Surgical Procedure a. Right and left toal knee replacements. b. Left knee has been repeatedly operated on with slava surgies, three replacements. Replacement of total knee joint Bilateral; left-became [id number] surgeries Fasciotomy, Foot (~1996) LEFT Family History Mother Diabetes Personal history of malignant neoplasm LUNG Father Personal history of malignant neoplasm BRAIN Grandfather No problems noted. Grandfather No problems noted. Grandmother No problems noted. Grandmother No problems noted. Social History Smoking/Tobacco Use Status: Former Tobacco Use tobacco type: cigarettes Quit Date: 01/21/21 Second Hand Exposure: Yes Smoking risk assessment performed?: Yes Alcohol Intake: never Drug use: Never Substance use type: does not use Counseling given: No Housing: house Communication Needs: Hard of Hearing and Corrective Lenses Pets and animals: Yes Pets and animals: cat(s) Sexually active: Yes Current gender identity: female What is your relationship status?: never How often do you talk on the phone with friends or family?: decline to answer How often do you get together with friends or relatives?: decline to answer How often do you attend cheondoism or gnosticist services?: decline to answer Do you belong to any clubs or organized social groups?: no Panel score (0-1 are the most socially isolated patients): 0 Seatbelt use: never Do you feel safe at home: Yes Do you feel safe in your relationship?: Yes Time Spent with Patient Time Spent with Patient: 45-69 minutes Time was spent: preparing to see the patient(eg.review tests), ordering medications,tests, procedures, referring, communicating with other health rn progressive care, indepentently interpreting results, counseling the patient and care coordination
[2024-09-14] MEDS: Furosemide 40 MG/4 ML VIAL 60 MG IVP (10:39)
[2024-09-14] MEDS: Norethindrone 5 MG TAB 10 MG PO (10:40)
[2024-09-14] MEDS: Bacitracin 1 PACKET TP (10:40)
[2024-09-14] MEDS: Pantoprazole 40 MG TABCR PO (10:40)
[2024-09-14] MEDS: Sertraline 50 MG TAB PO (10:41)
[2024-09-14] MEDS: Ascorbic Acid 500 MG TAB 1000 MG PO (10:41)
[2024-09-14] MEDS: Calcium 600mg/Vit D 200U TAB 1 TAB PO (10:42)
[2024-09-14] MEDS: Ferrous Sulfate 325 MG TAB PO (10:42)
[2024-09-14] MEDS: Potassium Chloride 20 MEQ TABCR PO (10:42)
[2024-09-14] MEDS: guaiFENesin 600 MG TABCR PO (10:42)
[2024-09-14] MEDS: Enoxaparin 60 MG/0.6 ML SYR SC (10:43)
--- NOTE | 2024-09-14 10:55 | CMDISCH_ITS ---
Date of service: 09/14/24 Time of Service: 10:55 LACE Index Scoring Tool Questions: Length of Stay (in days): 7 - 13 Was the patient admitted via the E.D.?: Yes Comorbidities: Congestive Heart Failure, Chronic Pulmonary Disease and Liver or Renal Disease E.D. Visits: 8 Answers: Total Score: 17 Risk of Readmission: High Risk Care Management Discharge Plan Reason for Hospitalization: sepsis Discharge Plan: Radha will be discharged home with a resumption of home health services for wound care. She will follow up with her PCP and plan of care and transport with family via private vehicle. Patient/Family Education Needs: Review discharge instructions, limitations, follow up plan and discuss Ask Me Three Services Needed at Discharge: Home Health Care Services SDOH Health Related Social Needs: Health related social needs problems with daily activi ties (Z73.9)
== END 2024-09-14 13:30 | disposition home health service (06) | DRG 871 ==
LOC: ER 14:38 → MS 14:55 → ICU 09-09 10:27
PROVIDERS: Hospitalist; Nurse Practitioner Acute Care; Admitting Provider Family Medicine; Emergency Provider Student in an Organized Health Care Education/Training Program; PCP Family Medicine; Visit Provider Family Medicine
DX: A41.9 Sepsis, unspecified organism (principal); I50.33 Acute on chronic diastolic (congestive) heart failure; J44.1 Chronic obstructive pulmonary disease with (acute) exacerbation; Z68.44 Body mass index [BMI] 60.0-69.9, adult; L97.821 Non-pressure chronic ulcer of other part of left lower leg limited to breakdown of skin; J96.12 Chronic respiratory failure with hypercapnia; T84.033A Mechanical loosening of internal left knee prosthetic joint, initial encounter; J96.11 Chronic respiratory failure with hypoxia; E87.6 Hypokalemia; E83.42 Hypomagnesemia; E66.01 Morbid (severe) obesity due to excess calories; I83.028 Varicose veins of left lower extremity with ulcer other part of lower leg; I89.0 Lymphedema, not elsewhere classified; I48.91 Unspecified atrial fibrillation; R32 Unspecified urinary incontinence; E83.51 Hypocalcemia; Z86.711 Personal history of pulmonary embolism; Z99.3 Dependence on wheelchair; E89.0 Postprocedural hypothyroidism; Z96.653 Presence of artificial knee joint, bilateral; Z99.81 Dependence on supplemental oxygen
CPT/HCPCS: 36410; 00123; 36415; 80048; 80053; 82805; 84145; 87040; 87637; 93005; 94640; 94761; 96365; 96367; 96375; 99285; J1650; 36600; 71045; 81003; 81015; 82330; 83605; 83735; 83880; 84484; 85025; 93010; 94660; 94760; 99223; 99232; 99233; 99239; J0696; J1940; J2470; J2919; J3475; J3480; J7512; J7613; J7620

== ENCOUNTER 2024-09-15 16:30 | Emergency (ER) | payer MEDICARE, MEDICAID, SELFPAY ==
[2024-09-15] VITALS (27 sets, daily range): BP systolic 110–175; BP diastolic 51–83; PULSE 83–96; RESP 20–25; TEMP 36.9–37; O2SAT 86–98
--- NOTE | 2024-09-15 16:30 | DI.CT_ITS ---
Exam(s) CT HEAD CERVICAL SPINE WO EXAM: CT HEAD CERVICAL SPINE WO CLINICAL HISTORY: head injury. TECHNIQUE: Imaging Protocol: Axial computed tomography images with coronal and sagittal reformatted images were created and reviewed COMPARISON: No exams were available for comparison FINDINGS: There is artifact in the cervical spine CT due to the patient's body habitus. The examination is edge ited due to patient motion artifact. CT Head: Ventricles and Extra axial spaces: Normal in size and morphology for the patient's age. Hemorrhage: None. Cerebral parenchyma: No evidence of an acute territorial infarct or mass effect. Midline shift: None. Brainstem/Cerebellum: Normal. Calvarium: Normal. Visualized Paranasal sinuses/Mastoids: Very small air-fluid levels in the maxillary sinuses bilateral ly. The remaining visualized paranasal sinuses and mastoid air cells are clear. Soft Tissues: Unremarkable. CT Cervical Spine: Bones: No acute fracture or subluxation. Age-appropriate degenerative changes are present in the cerv ical spine. Soft Tissues: Unremarkable. Lung Apices: Clear. IMPRESSION: 1. No acute intracranial process. 2. No acute fracture or subluxation in the cervical spine. RADIATION DOSE DELIVERED: 1,504.03mGy.cm Total DLP DATA REPOSITORY: All CT scans at this facility are submitted to the National Radiology Data Registry (NRDR) Dose Index Registry (DIR) with the [employer] ([employer]). RADIATION OPTIMIZATION: All CT scans at this facility use at least one of these dose optimization te chniques: automated exposure control; mA and/or kV adjustment per patient size (includes targeted exa ms where dose is matched to clinical indication); or iterative reconstruction.
--- NOTE | 2024-09-15 16:30 | DI.RAD_ITS ---
Exam(s) XR TIB/FIB LT XR FEMUR LT EXAM: XR TIB/FIB LT and XR femur LT CLINICAL HISTORY: fall, generalized leg pain. TECHNIQUE: 2D digital imaging was performed. Eight images were obtained. AP and lateral views were obtained. COMPARISON: CR XR knee LT 3V AP,lat,arcenio from 06/30/2018 FINDINGS: BONES: The patient has a left total knee replacement. The tibia and fibula are intact. There is an acute fracture of the mid shaft of the femur adjacent to the femoral stem component of the hardware. There is posterior displacement and medial displacement of the distal fracture. There is fracture i s angulated with the apex of the fracture directed anteriorly. JOINTS: The tibial component of the prosthesis is well maintained. The femoral component of the pros thesis is described above. SOFT TISSUE: There is soft tissue swelling of the lower extremity. IMPRESSION: Acute angulated and displaced fracture involving the midshaft of the left femur. This is a periprost hetic fracture adjacent to the proximal femoral stem component of the patient's total knee arthroplas ty. DATA REPOSITORY: RADIATION DOSE DELIVERED:
--- NOTE | 2024-09-15 16:42 | ED.GENADUL_ITS ---
Discharge Plan Disposition Patient Disposition: Transfer-Acute Inpatient Care Specific Acute Inpt Facility: [place] Discharge Details Clinical Impression: Left femoral shaft fracture Primary Care Provider: Alphonso Murphy ED Provider: Milly Peck Home Meds and New Rx's Prescriptions: No Action Zepbound 2.5 mg/0.5 mL pen injector 2.5 mg subcut QWEEK Qty: 2 0RF Rx Instructions: for 4 weeks albuterol sulfate 90 mcg/actuation HFA aerosol inhaler 1 - 2 puff Inhalation Q6H PRN Qty: 1 11RF ipratropium-albuterol 0.5 mg-3 mg(2.5 mg base)/3 mL solution for nebulization 3 ml IH QID MDD 4 nebs Qty: 180 3RF fluticasone propionate [Flonase Allergy Relief] 50 mcg/actuation spray,suspension 1 spray NS DAILY Qty: 1 8RF potassium chloride [Klor-Con M20] 20 mEq tablet,ER particles/crystals 20 meq PO DAILY Qty: 90 3RF ascorbic acid (vitamin C) 1,000 MG tablet 1,000 mg PO DAILY (DME) Aerochamber Mini 1 EACH spacer 1 ea Inhalation PRN Qty: 1 Rx Instructions: DIRECTED WITH INHALER BiPAP Inhalation Gas 5 l IN DIRECTED Rx Instructions: sleep apnea ([facility] sleep lab 2012) uses with oxygen betamethasone, augmented 0.05 % lotion 1 applic topical BID PRN (Reason: allergic reaction) Qty: 60 2RF levothyroxine 200 mcg tablet 200 mcg PO DAILY Qty: 90 3RF oxygen Inhalation 3 l Intranasal DIRECTED Patient Comments: Continuous and uses with bipap Rx Instructions: 3L/NC continuous alclometasone 0.05 % cream 1 applic topical BID PRN (Reason: itching) Qty: 45 1RF ketoconazole 2 % cream 1 applic topical BID PRN (Reason: facial rash) Qty: 60 1RF furosemide 80 mg tablet 80 mg PO BID@0830,1600 Qty: 60 0RF pantoprazole 20 mg tablet,delayed release (DR/EC) 20 mg PO DAILY Qty: 90 3RF Rx Instructions: 04/13/23 Per GI. -hb sertraline 50 mg tablet 50 mg PO DAILY Qty: 90 3RF cephalexin 500 mg capsule 500 mg PO QID Qty: 28 0RF calcium carbonate-vitamin D3 600 mg-5 mcg (200 unit) Tablet 1 tab PO BID Qty: 30 0RF norethindrone acetate 5 mg tablet 10 mg PO BID Qty: 180 1RF ferrous sulfate 325 mg (65 mg iron) tablet 325 mg PO Q OTHER DAY Qty: 15 2RF nystatin 100,000 unit/gram powder 1 applic TP BID Qty: 30 5RF BiomePRO 50 billion cell capsule,delayed release(DR/EC) 1 cap PO DAILY Qty: 4 0RF Rx Instructions: Take 3 hours apart form any antibiotics HPI General Date/Time Provider Initiated Documentation: 09/15/24 16:32 . HPI Narrative: Radha is a 69year old female who presents to the emergency department today for evaluation of left leg pain after fall. She reports the last night at 830 she fell while getting up, causing her to fall on her left side against the dresser. She was helped up by EMS and was put to bed, but she has been in pain all day today so came into the emergency department via EMS to have it checked out. She admits that she hit her head in the fall, but denies loss of consciousness, headache, neck pain, back pain, other extremity injury. Past medical history is significant for COPD, oxygen dependence, CHF, A-fib not on anticoagulation. She was discharged from hospital yesterday with diagnosis of COPD exacerbation and CHF exacerbation. Physical exam remarkable for uncomfortable patient with generalized leg pain with palpation, especially to the left thigh. No obvious deformity, skin tears, or ecchymosis. Sensation grossly intact to lower extremity. Normal heart sounds. Coarse lung sounds noted, easy work of breathing. D/dx includes but is not limited to: Fracture, contusion, dislocation, soft tissue injury I independently interpreted the following tests: Left femur x-ray significant for periprosthetic left femoral shaft fracture above distal femur replacement. CBC notable for leukocytosis; patient was discharged on prednisone. CMP notable for elevated carbon dioxide and LFTs. Screening head CT/C-spine CT also performed, as well as chest x-ray, T-spine, and L-spine. No acute abnormalities noted. While in the emergency department, Radha received dilaudid for pain control. Presented case to Dr. Reyes, orthopedic surgeon. As patient is a bariatric patient with a complex fracture requiring surgery and possible amputation, transfer to tertiary care center with such capabilities is strongly advised. I presented case to transfer center at [facility] [place], [facility], [facility]- patient declined due to capacity. Spoke with orthopedist Dr. Newman at [place], orthopedist and Dr. Lemus, trauma surgeon-patient accepted as ED to ED transfer under Dr. Gregg. Related Data Home Medications ?Medication ?Instructions ?Recorded ?Confirmed ascorbic acid (vitamin C) 1,000 mg 1,000 mg PO DAILY 11/25/12 09/15/24 tablet inhalational spacing device ##1 12/21/13 09/15/24 (Aerochamber Mini) Bipap 5 l IN DIRECTED 07/23/14 09/15/24 betamethasone, augmented 0.05 % 1 applic topical BID PRN allergic 06/20/21 09/15/24 lotion reaction #60 mL levothyroxine 200 mcg tablet 200 mcg PO DAILY #90 tabs 02/15/24 09/15/24 oxygen 3 l intranasal DIRECTED 04/02/24 09/15/24 ferrous sulfate 325 mg (65 mg 325 mg PO Q OTHER DAY #15 tabs 04/12/24 09/15/24 iron) tablet norethindrone acetate 5 mg tablet 10 mg (2 x 5 mg) PO BID #180 tabs 04/12/24 09/15/24 alclometasone 0.05 % topical cream 1 applic topical BID PRN itching 04/17/24 09/15/24 #45 grams ketoconazole 2 % topical cream 1 applic topical BID PRN facial 04/17/24 09/15/24 rash #60 grams L. acidophilus,casei,rhamnosus 50 1 cap PO DAILY #4 caps 06/04/24 09/15/24 billion cell capsule,delayed release (BiomePRO) nystatin 100,000 unit/gram topical 1 applic topical BID intertrigo 06/04/24 09/15/24 powder #30 grams tirzepatide (weight loss) 2.5 2.5 mg (0.5 mL) subcut QWEEK #2 mL 06/12/24 09/15/24 mg/0.5 mL subcutaneous pen injector (Zepbound) albuterol sulfate 90 mcg/actuation 1 - 2 puff inhalation Q6H PRN ##1 07/17/24 09/15/24 aerosol inhaler fluticasone propionate 50 1 spray NS DAILY ##1 07/17/24 09/15/24 mcg/actuation nasal spray,suspension (Flonase Allergy Relief) ipratropium 0.5 mg-albuterol 3 mg 3 ml inhalation QID COPD 07/17/24 09/15/24 (2.5 mg base)/3 mL nebulization exacerbation/wheezing #180 mL soln potassium chloride 20 mEq 20 meq PO DAILY #90 tabs 07/17/24 09/15/24 tablet,extended release(part/cryst) (Klor-Con M) furosemide 80 mg tablet 80 mg PO BID@0830,1600 #60 tabs 07/26/24 09/15/24 pantoprazole 20 mg tablet,delayed 20 mg PO DAILY #90 tabs 07/26/24 09/15/24 release sertraline 50 mg tablet 50 mg PO DAILY #90 tabs 07/26/24 09/15/24 cephalexin 500 mg capsule 500 mg PO QID wound infection--leg 09/04/24 09/15/24 #28 caps calcium 600 mg (as 1 tab PO BID #30 tabs 09/14/24 09/15/24 carbonate)-vitamin D3 5 mcg (200 unit) tablet Previous Rx's ?Medication ?Instructions ?Recorded betamethasone, augmented 0.05 % 1 applic topical BID PRN allergic 06/20/21 lotion reaction #60 mL levothyroxine 200 mcg tablet 200 mcg PO DAILY #90 tabs 02/15/24 ferrous sulfate 325 mg (65 mg 325 mg PO Q OTHER DAY #15 tabs 04/12/24 iron) tablet norethindrone acetate 5 mg tablet 10 mg (2 x 5 mg) PO BID #180 tabs 04/12/24 alclometasone 0.05 % topical cream 1 applic topical BID PRN itching 04/17/24 #45 grams ketoconazole 2 % topical cream 1 applic topical BID PRN facial 04/17/24 rash #60 grams L. acidophilus,casei,rhamnosus 50 1 cap PO DAILY #4 caps 06/04/24 billion cell capsule,delayed release (BiomePRO) nystatin 100,000 unit/gram topical 1 applic topical BID intertrigo 06/04/24 powder #30 grams tirzepatide (weight loss) 2.5 2.5 mg (0.5 mL) subcut QWEEK #2 mL 06/12/24 mg/0.5 mL subcutaneous pen injector (Zepbound) albuterol sulfate 90 mcg/actuation 1 - 2 puff inhalation Q6H PRN ##1 07/17/24 aerosol inhaler fluticasone propionate 50 1 spray NS DAILY ##1 07/17/24 mcg/actuation nasal spray,suspension (Flonase Allergy Relief) ipratropium 0.5 mg-albuterol 3 mg 3 ml inhalation QID COPD 07/17/24 (2.5 mg base)/3 mL nebulization exacerbation/wheezing #180 mL soln potassium chloride 20 mEq 20 meq PO DAILY #90 tabs 07/17/24 tablet,extended release(part/cryst) (Klor-Con M) furosemide 80 mg tablet 80 mg PO BID@0830,1600 #60 tabs 07/26/24 pantoprazole 20 mg tablet,delayed 20 mg PO DAILY #90 tabs 07/26/24 release sertraline 50 mg tablet 50 mg PO DAILY #90 tabs 07/26/24 cephalexin 500 mg capsule 500 mg PO QID wound infection--leg 09/04/24 #28 caps calcium 600 mg (as 1 tab PO BID #30 tabs 09/14/24 carbonate)-vitamin D3 5 mcg (200 unit) tablet Allergies Allergy/AdvReac Type Severity Reaction Status Date / Time hydrocodone Allergy Severe ITCHING Verified 09/07/24 10:52 morphine Allergy Mild PRURITIS Verified 09/07/24 10:52 oxycodone Allergy Mild ITCHING Verified 09/07/24 10:52 General Stated Complaint: Fall/Non TraumaCriteria REUBEN: 3 Review of Systems Narrative: see HPI Exam Const General: in distress Nutritional Appearance: obese Orientation: alert and oriented x3 Resp Effort & Inspection: normal respiratory effort and able to speak in complete sentences Auscultation: other (coarse bilaterally) Cardio Rate: regular rate Rhythm: regular rhythm Neuro Motor: muscle tone normal throughout Sensory Exam: no sensory deficits noted Extrem Right lower extremity: normal capillary refill and hip/thigh Details: tenderness (diffuse) and abnormal ROM Details: held in an abnormal fashion Details: in external rotation; no abrasions, no lacerations, no ecchymosis, no crepitus, no deformity and no unusual warmth Course Vital Signs Vital signs: Vital Signs Temperature 36.9 C 09/15/24 16:32 Pulse 83 09/15/24 16:32 Respiratory Rate 20 09/15/24 16:32 Blood Pressure 175/83 H 09/15/24 16:32 Pulse Oximetry 98 09/15/24 16:32 Temperature 36.9 C 09/15/24 16:32 Temperature Source Tympanic 09/15/24 16:32 Pulse 83 09/15/24 16:32 Respiratory Rate 20 09/15/24 16:32 Blood Pressure 175/83 H 09/15/24 16:32 Pulse Oximetry 98 09/15/24 16:32 Oxygen Delivery Method Nasal Cannula 09/15/24 16:32 Oxygen Flow Rate 2 09/15/24 16:32 Pain Level 9 09/15/24 16:32 Medical Decision Making Imaging Data Radiologic Study: Radiologist's impression: Exam(s) XR TIB/FIB LT XR FEMUR LT EXAM: XR TIB/FIB LT and XR femur LT CLINICAL HISTORY: fall, generalized leg pain. TECHNIQUE: 2D digital imaging was performed. Eight images were obtained. AP and lateral views were obtained. COMPARISON: CR XR knee LT 3V AP,lat,arcenio from 06/30/2018 FINDINGS: BONES: The patient has a left total knee replacement. The tibia and fibula are intact. There is an acute fracture of the mid shaft of the femur adjacent to the femoral stem component of the hardware. There is posterior displacement and medial displacement of the distal fracture. There is fracture is angulated with the apex of the fracture directed anteriorly. JOINTS: The tibial component of the prosthesis is well maintained. The femoral component of the prosthesis is described above. SOFT TISSUE: There is soft tissue swelling of the lower extremity. IMPRESSION: Acute angulated and displaced fracture involving the midshaft of the left femur. This is a periprosthetic fracture adjacent to the proximal femoral stem component of the patient's total knee arthroplasty. Radiologic Study #2: Radiologist's impression: Exam(s) XR TIB/FIB LT XR FEMUR LT EXAM: XR TIB/FIB LT and XR femur LT CLINICAL HISTORY: fall, generalized leg pain. TECHNIQUE: 2D digital imaging was performed. Eight images were obtained. AP and lateral views were obtained. COMPARISON: CR XR knee LT 3V AP,lat,arcenio from 06/30/2018 FINDINGS: BONES: The patient has a left total knee replacement. The tibia and fibula are intact. There is an acute fracture of the mid shaft of the femur adjacent to the femoral stem component of the hardware. There is posterior displacement and medial displacement of the distal fracture. There is fracture is angulated with the apex of the fracture directed anteriorly. JOINTS: The tibial component of the prosthesis is well maintained. The femoral component of the prosthesis is described above. SOFT TISSUE: There is soft tissue swelling of the lower extremity. IMPRESSION: Acute angulated and displaced fracture involving the midshaft of the left femur. This is a periprosthetic fracture adjacent to the proximal femoral stem component of the patient's total knee arthroplasty. Radiologic Study #3: Radiologist's impression: Exam(s) CT HEAD CERVICAL SPINE WO EXAM: CT HEAD CERVICAL SPINE WO CLINICAL HISTORY: head injury. TECHNIQUE: Imaging Protocol: Axial computed tomography images with coronal and sagittal reformatted images were created and reviewed COMPARISON: No exams were available for comparison FINDINGS: There is artifact in the cervical spine CT due to the patient's body habitus. The examination is limited due to patient motion artifact. CT Head: Ventricles and Extra axial spaces: Normal in size and morphology for the patient's age. Hemorrhage: None. Cerebral parenchyma: No evidence of an acute territorial infarct or mass effect. Midline shift: None. Brainstem/Cerebellum: Normal. Calvarium: Normal. Visualized Paranasal sinuses/Mastoids: Very small air-fluid levels in the maxillary sinuses bilaterally. The remaining visualized paranasal sinuses and mastoid air cells are clear. Soft Tissues: Unremarkable. CT Cervical Spine: Bones: No acute fracture or subluxation. Age-appropriate degenerative changes are present in the cervical spine. Soft Tissues: Unremarkable. Lung Apices: Clear. IMPRESSION: 1. No acute intracranial process. 2. No acute fracture or subluxation in the cervical spine. Quality:SDOH Health Related Social Needs: Health related social needs problems with daily activi ties (Z73.9) [facility] All Active Problems (Updated 09/15/24 @ 20:06 by Milly Max) Left femoral shaft fracture (Acute) Advanced care planning/counseling discussion (Acute) Palliative care patient (Acute) Leg wound, left (Acute) Wound of left leg (Acute) Bronchitis (Acute) Pulmonary vascular congestion (Acute) Acute exacerbation of chronic obstructive pulmonary disease (Acute) Elevated liver enzymes (Acute) Asymptomatic bacteriuria (Acute) CHF (congestive heart failure) (Chronic) Atrial fibrillation (Chronic) COPD (chronic obstructive pulmonary disease) (Chronic) Acute and chronic respiratory failure (Acute) Elevated white blood cell count (Acute) Abnormal liver enzymes (Acute) Chronic obstructive pulmonary disease with acute exacerbation (Acute) Exertional shortness of breath (Acute) Heart failure with preserved ejection fraction (Acute) Wound dehiscence (Acute) Thickened endometrium (Acute) Postmenopausal bleeding (Acute) COPD (chronic obstructive pulmonary disease) (Acute) Laceration of dobson (Acute) GERD (gastroesophageal reflux disease) (Chronic) had negative barium esophagram in 11/2022. Anxiety (Chronic) Venous stasis dermatitis (Acute) Chronic headaches (Chronic) Recent Neurology consult for possible papilledema. Urinary incontinence (Chronic) On Detrol Recurrent UTI (Chronic) Right ventricular dysfunction (Chronic) Knee pain, bilateral (Chronic 07/23/14) s/p bilat TKR (left infected with mult surg and decreased mobility) Morbid obesity (Acute 04/05/13) Sensorineural hearing loss, bilateral (Chronic 08/29/13) Advance directive on file (Acute) Low back pain with sciatica (Chronic 05/03/14) CT at [facility] L34 spinal stenosis Varicose veins of lower extremity (Chronic) Depression (Chronic) Grief at loss of child (Acute) Chronic respiratory failure with hypoxia and hypercapnia (Chronic) home BiPap Status post total bilateral knee replacement (Acute) Sprain of scapholunate ligament (Acute 03/21/19) DAVID (obstructive sleep apnea) (Chronic) on BiPap Hyperglycemia (Acute) Mixed conductive and sensorineural hearing loss of both ears (Acute) Right carpal tunnel syndrome (Acute) Arthritis of right hand (Acute) Impingement of right ulnar nerve (Acute) Dermoid cyst of neck (Acute) Hypothyroidism (Chronic) Microcalcifications of the breast (Acute) Neuropathy of left hand (Acute) Neuropathy of right hand (Acute) Bilateral carpal tunnel syndrome (Acute) Medical History UTI (urinary tract infection) Abnormal urinalysis Lymphedema Community acquired pneumonia Pneumonia Hx pulmonary embolism (~2015) treated with lovenox x 3 months Surgical History Status post thyroidectomy History of fasciotomy History of Surgical Procedure a. Right and left toal knee replacements. b. Left knee has been repeatedly operated on with slava surgies, three replacements. Replacement of total knee joint Bilateral; left-became ksrpnoyt-[id number]-ztibrvun surgeries Fasciotomy, Foot (~1996) LEFT Family History Mother Diabetes Personal history of malignant neoplasm LUNG Father Personal history of malignant neoplasm BRAIN Grandfather No problems noted. Grandfather No problems noted. Grandmother No problems noted. Grandmother No problems noted. Social History Smoking/Tobacco Use Status: Former Tobacco Use tobacco type: cigarettes Quit Date: 01/21/21 Second Hand Exposure: Yes Smoking risk assessment performed?: Yes Alcohol Intake: never Drug use: Never Substance use type: does not use Counseling given: No Housing: house Communication Needs: Hard of Hearing and Corrective Lenses Pets and animals: Yes Pets and animals: cat(s) Sexually active: Yes Current gender identity: female What is your relationship status?: never How often do you talk on the phone with friends or family?: decline to answer How often do you get together with friends or relatives?: decline to answer How often do you attend yarsanism or sabianism services?: decline to answer Do you belong to any clubs or organized social groups?: no Panel score (0-1 are the most socially isolated patients): 0 Seatbelt use: never Do you feel safe at home: Yes Do you feel safe in your relationship?: Yes
--- NOTE | 2024-09-15 16:42 | DI.RAD_ITS ---
Exam(s) XR PELVIS AP EXAM: XR PELVIS AP CLINICAL HISTORY: fall, generalized leg pain. TECHNIQUE: 2D digital imaging was performed.One images were obtained. COMPARISON: CR LEFT HIP COMPLETE from 12/31/2011 CR XR FEMUR LT from 09/15/2024 FINDINGS: BONES: No acute fracture is present. No bony destructive lesion is seen. JOINTS: No dislocation present. Degenerative changes are seen in the visualized lumbar spine. The hi p joints are well maintained as are the sacroiliac joints and symphysis pubis. SOFT TISSUE: Normal. IMPRESSION: No acute fracture or dislocation. DATA REPOSITORY: RADIATION DOSE DELIVERED:
--- NOTE | 2024-09-15 17:15 | DI.RAD_ITS ---
Exam(s) XR CHEST 2V PA LATERAL EXAM: XR CHEST 2V PA LATERAL CLINICAL HISTORY: fall, L femur fx TECHNIQUE: 2D digital imaging was performed of the chest. Two images were obtained. PA and lateral views were obtained. COMPARISON: CR XR PORTABLE CHEST AP from 09/08/2024 FINDINGS: Exam limited by the patient body habitus. MEDIASTINUM: Normal. HEART: Normal. PULMONARY VASCULATURE: Normal. LUNGS: Clear. PLEURAL SPACE: No pleural effusion or pneumothorax. BONE:Within normal limits for the patient's age. OTHER FINDINGS:Normal. IMPRESSION: Within the limits of the examination, no acute pulmonary findings. DATA REPOSITORY: RADIATION DOSE DELIVERED:
--- NOTE | 2024-09-15 17:45 | DI.RAD_ITS ---
Exam(s) XR THORACIC SPINE COMPLETE EXAM: XR THORACIC SPINE COMPLETE CLINICAL HISTORY: fall, L femur fx. TECHNIQUE: 2D digital imaging was performed of the thoracic spine. One AP views were obtained. The patient refused further imaging. COMPARISON: CT CT CHEST PE CTA from 02/27/2024 CR XR PORTABLE CHEST AP from 06/07/2024 CR XR PORTABLE CHEST AP from 09/07/2024 FINDINGS: A single AP view is obtained. This is an incomplete examination. There is normal alignment of the t horacic spine. The bones are normally mineralized. The visualized lungs are clear. IMPRESSION: This is an incomplete examination. An acute fracture or subluxation of the thoracic spine cannot be excluded on the basis of this single image. DATA REPOSITORY: RADIATION DOSE DELIVERED:
--- NOTE | 2024-09-15 17:54 | DI.RAD_ITS ---
Exam(s) XR LUMBAR SPINE AP, LAT EXAM: XR LUMBAR SPINE AP, LAT CLINICAL HISTORY: fall, L femur fracture. TECHNIQUE: 2D digital imaging was performed of the lumbar spine. One AP images were obtained. The patient refused additional imaging. COMPARISON: CR LUMBAR SPINE COMPLETE from 12/31/[address] CHEST PE CTA from 02/27/2024 FINDINGS: This is an incomplete examination. Alignment is within normal limits. There are marked degenerative changes seen in the lumbar spine. The bones appear normally mineralized. IMPRESSION: This is an incomplete examination for trauma of the lumbar spine. An acute fracture or subluxation c annot be excluded on the basis of this examination. Follow-up as clinically appropriate. DATA REPOSITORY: RADIATION DOSE DELIVERED:
[2024-09-15] MEDS: HYDROmorphone 2 MG/ML SYR 1 MG IVP (18:36)
[2024-09-15] MEDS: Acetaminophen 325 MG TAB 650 MG PO (18:36)
[2024-09-15 19:21] LABS: HCT 46.4 % (36.0-46.0); HGB 14.8 g/dL (11.2-15.7); MCHC 31.9 % (32.0-36.0); MCV 81 fL (80-95); MPV 10.7 fL (8.0-11.0); Platelet Count 340 10^3/uL (130-400); RDW 17.2 % (11.7-14.6); RDW-SD 49.8 fL; WBC 15.35 10^3/uL (4.4-10.8)
[2024-09-15 19:38] LABS: ALT 144 U/L (14-59); AST 62 U/L (15-37); Albumin 2.6 g/dL (3.4-5.0); Alkaline Phosphatase 85 U/L (46-116); BUN 23 mg/dL (7-18); Bilirubin, Total 1.47 mg/dL (0.2-1.0); CREATININE 0.8 mg/dL (0.55-1.02); Calcium 7.8 mg/dL (8.5-10.1); Chloride 93 mmol/L (98-107); Estimated GFR 80.21 (mL/min/1.73m2); Glucose 98 mg/dL (74-106); Total Protein 7.1 g/dL (6.4-8.2)
[2024-09-15 19:43] LABS: Sodium 139 mmol/L (136-145)
[2024-09-15 19:44] LABS: Anion Gap 0.99999 mmol/L (3-11); CO2 > 45.0 mmol/L (21.0-32.0); Potassium 3.5 mmol/L (3.5-5.1)
== END 2024-09-15 21:07 | disposition short-term general hospital (02) ==
PROVIDERS: Emergency Provider Nurse Practitioner Family; PCP Family Medicine
DX: S72.302A Unspecified fracture of shaft of left femur, initial encounter for closed fracture (principal); W19.XXXA Unspecified fall, initial encounter
CPT/HCPCS: 73552; 80053; 85027; 96374; 99285; 70450; 71046; 72072; 72100; 72125; 72170; 73590; J1171

== ENCOUNTER 2024-10-10 22:00 | Emergency (ER) | payer MEDICARE, MEDICAID, SELFPAY ==
--- NOTE | 2024-10-10 22:13 | ED.GENADUL_ITS ---
Discharge Plan Disposition Patient Disposition: Home Condition: Good Discharge Details Clinical Impression: Encounter for management of wound VAC Primary Care Provider: Alphonso Murphy ED Provider: Juan Helm Home Meds and New Rx's Prescriptions: Continued Zepbound 2.5 mg/0.5 mL pen injector 2.5 mg subcut QWEEK Qty: 2 0RF Rx Instructions: for 4 weeks albuterol sulfate 90 mcg/actuation HFA aerosol inhaler 1 - 2 puff Inhalation Q6H PRN Qty: 1 11RF ipratropium-albuterol 0.5 mg-3 mg(2.5 mg base)/3 mL solution for nebulization 3 ml IH QID MDD 4 nebs Qty: 180 3RF fluticasone propionate [Flonase Allergy Relief] 50 mcg/actuation spray,suspension 1 spray NS DAILY Qty: 1 8RF potassium chloride [Klor-Con M20] 20 mEq tablet,ER particles/crystals 20 meq PO DAILY Qty: 90 3RF ascorbic acid (vitamin C) 1,000 MG tablet 1,000 mg PO DAILY (DME) Aerochamber Mini 1 EACH spacer 1 ea Inhalation PRN Qty: 1 Rx Instructions: DIRECTED WITH INHALER BiPAP Inhalation Gas 5 l IN DIRECTED Rx Instructions: sleep apnea ([facility] sleep lab 2013) uses with oxygen betamethasone, augmented 0.05 % lotion 1 applic topical BID PRN (Reason: allergic reaction) Qty: 60 2RF levothyroxine 200 mcg tablet 200 mcg PO DAILY Qty: 90 3RF oxygen Inhalation 3 l Intranasal DIRECTED Patient Comments: Continuous and uses with bipap Rx Instructions: 3L/NC continuous alclometasone 0.05 % cream 1 applic topical BID PRN (Reason: itching) Qty: 45 1RF ketoconazole 2 % cream 1 applic topical BID PRN (Reason: facial rash) Qty: 60 1RF furosemide 80 mg tablet 80 mg PO BID@0830,1600 Qty: 60 0RF pantoprazole 20 mg tablet,delayed release (DR/EC) 20 mg PO DAILY Qty: 90 3RF Rx Instructions: 04/13/23 Per GI. -hb sertraline 50 mg tablet 50 mg PO DAILY Qty: 90 3RF cephalexin 500 mg capsule 500 mg PO QID Qty: 28 0RF gabapentin 300 mg capsule 300 mg PO TID norethindrone acetate 5 mg tablet 10 mg PO BID Qty: 180 1RF calcium carbonate-vitamin D3 600 mg-5 mcg (200 unit) Tablet 1 tab PO BID Qty: 30 0RF ferrous sulfate 325 mg (65 mg iron) tablet 325 mg PO Q OTHER DAY Qty: 15 2RF nystatin 100,000 unit/gram powder 1 applic TP BID Qty: 30 5RF BiomePRO 50 billion cell capsule,delayed release(DR/EC) 1 cap PO DAILY Qty: 4 0RF Rx Instructions: Take 3 hours apart form any antibiotics Discharge Instructions Additional Instructions: You came in after a controlled fall which resulted in the wound vac to develop a leak. We were able to reseal the dressing and the wound vac is functioning once again. You can have the wound care nurse change the dressing/check the wound once you obtain the supplies. Discuss any concerns with your surgeon at [facility]. Your labs tonight look good. Follow up [facility] PCP for general care. Return to ED for fever, trouble breathing, other concerns. HPI General Mode of arrival: wheelchair . Date/Time Provider Initiated Documentation: 10/10/24 22:13 . Information obtained by: patient, RN notes reviewed and old records reviewed . HPI Narrative: Patient brought to the ED by her sons with complaint of some weakness, controlled fall, bleeding from her stump after a recent AKA. Patient had a fractured periprosthetic femur fracture in early September. 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 She is at home with home health services. She reports that she has been vaginally bleeding for the last month because she has not had her norethindrone that she usually takes twice a day. She is supposed to be getting that restarted this week. But she thinks she is feeling weak because of the vaginal bleeding. She denies fever. She denies cough and feels that her breathing is actually better than it typically is. She has no abdominal pain, vomiting, diarrhea. Denies urinary symptoms. She was trying to get from her commode back to her bed. Because of her weakness she fell but not directly to the floor. Initially fell kind into her chair then trying to get back to the bed and slid down to the floor. However, in the process of this her wound VAC on the base of her stump pulled and she had increased bleeding. She is concerned that she possibly opened up the wound more than it was. Wound VAC is supposed to have dressing changes 3 times a week. It was supposed to have been changed yesterday but there are no supplies at home, they are coming in the mail supposedly by . She denies any injury in the fall. She came in because of the concern regarding the stump. Related Data Home Medications ?Medication ?Instructions ?Recorded ?Confirmed ascorbic acid (vitamin C) 1,000 mg 1,000 mg PO DAILY 11/25/12 10/10/24 tablet inhalational spacing device ##1 12/21/13 10/10/24 (Aerochamber Mini) Bipap 5 l IN DIRECTED 07/23/14 10/10/24 betamethasone, augmented 0.05 % 1 applic topical BID PRN allergic 06/20/21 10/10/24 lotion reaction #60 mL levothyroxine 200 mcg tablet 200 mcg PO DAILY #90 tabs 02/15/24 10/10/24 oxygen 3 l intranasal DIRECTED 04/02/24 10/10/24 ferrous sulfate 325 mg (65 mg 325 mg PO Q OTHER DAY #15 tabs 04/12/24 10/10/24 iron) tablet alclometasone 0.05 % topical cream 1 applic topical BID PRN itching 04/17/24 10/10/24 #45 grams ketoconazole 2 % topical cream 1 applic topical BID PRN facial 04/17/24 10/10/24 rash #60 grams L. acidophilus,casei,rhamnosus 50 1 cap PO DAILY #4 caps 06/04/24 10/10/24 billion cell capsule,delayed release (BiomePRO) nystatin 100,000 unit/gram topical 1 applic topical BID intertrigo 06/04/24 10/10/24 powder #30 grams tirzepatide (weight loss) 2.5 2.5 mg (0.5 mL) subcut QWEEK #2 mL 06/12/24 10/10/24 mg/0.5 mL subcutaneous pen injector (Zepbound) albuterol sulfate 90 mcg/actuation 1 - 2 puff inhalation Q6H PRN ##1 07/17/24 10/10/24 aerosol inhaler fluticasone propionate 50 1 spray NS DAILY ##1 07/17/24 10/10/24 mcg/actuation nasal spray,suspension (Flonase Allergy Relief) ipratropium 0.5 mg-albuterol 3 mg 3 ml inhalation QID COPD 07/17/24 10/10/24 (2.5 mg base)/3 mL nebulization exacerbation/wheezing #180 mL soln potassium chloride 20 mEq 20 meq PO DAILY #90 tabs 07/17/24 10/10/24 tablet,extended release(part/cryst) (Klor-Con M) furosemide 80 mg tablet 80 mg PO BID@0830,1600 #60 tabs 07/26/24 10/10/24 pantoprazole 20 mg tablet,delayed 20 mg PO DAILY #90 tabs 07/26/24 10/10/24 release sertraline 50 mg tablet 50 mg PO DAILY #90 tabs 07/26/24 10/10/24 cephalexin 500 mg capsule 500 mg PO QID wound infection--leg 09/04/24 10/10/24 #28 caps calcium 600 mg (as 1 tab PO BID #30 tabs 09/14/24 10/10/24 carbonate)-vitamin D3 5 mcg (200 unit) tablet gabapentin 300 mg capsule 300 mg PO TID 10/01/24 10/10/24 norethindrone acetate 5 mg tablet 10 mg (2 x 5 mg) PO BID #180 tabs 10/02/24 10/10/24 Previous Rx's ?Medication ?Instructions ?Recorded betamethasone, augmented 0.05 % 1 applic topical BID PRN allergic 06/20/21 lotion reaction #60 mL levothyroxine 200 mcg tablet 200 mcg PO DAILY #90 tabs 02/15/24 ferrous sulfate 325 mg (65 mg 325 mg PO Q OTHER DAY #15 tabs 04/12/24 iron) tablet alclometasone 0.05 % topical cream 1 applic topical BID PRN itching 04/17/24 #45 grams ketoconazole 2 % topical cream 1 applic topical BID PRN facial 04/17/24 rash #60 grams L. acidophilus,casei,rhamnosus 50 1 cap PO DAILY #4 caps 06/04/24 billion cell capsule,delayed release (BiomePRO) nystatin 100,000 unit/gram topical 1 applic topical BID intertrigo 06/04/24 powder #30 grams tirzepatide (weight loss) 2.5 2.5 mg (0.5 mL) subcut QWEEK #2 mL 06/12/24 mg/0.5 mL subcutaneous pen injector (Zepbound) albuterol sulfate 90 mcg/actuation 1 - 2 puff inhalation Q6H PRN ##1 07/17/24 aerosol inhaler fluticasone propionate 50 1 spray NS DAILY ##1 07/17/24 mcg/actuation nasal spray,suspension (Flonase Allergy Relief) ipratropium 0.5 mg-albuterol 3 mg 3 ml inhalation QID COPD 07/17/24 (2.5 mg base)/3 mL nebulization exacerbation/wheezing #180 mL soln potassium chloride 20 mEq 20 meq PO DAILY #90 tabs 07/17/24 tablet,extended release(part/cryst) (Klor-Con M) furosemide 80 mg tablet 80 mg PO BID@0830,1600 #60 tabs 07/26/24 pantoprazole 20 mg tablet,delayed 20 mg PO DAILY #90 tabs 07/26/24 release sertraline 50 mg tablet 50 mg PO DAILY #90 tabs 07/26/24 cephalexin 500 mg capsule 500 mg PO QID wound infection--leg 09/04/24 #28 caps calcium 600 mg (as 1 tab PO BID #30 tabs 09/14/24 carbonate)-vitamin D3 5 mcg (200 unit) tablet norethindrone acetate 5 mg tablet 10 mg (2 x 5 mg) PO BID #180 tabs 10/02/24 Allergies Allergy/AdvReac Type Severity Reaction Status Date / Time hydrocodone Allergy Severe ITCHING Verified 09/07/24 10:52 morphine Allergy Mild PRURITIS Verified 09/07/24 10:52 oxycodone Allergy Mild ITCHING Verified 09/07/24 10:52 General REUBEN: 3 Exam Narrative Exam Narrative: Const: Morbidly obese female in NAD. VS per triage. HEENT: NC/AT. Normal facial exam. Neck: Supple. Trachea midline. Lungs: Normal respiratory effort. Lungs are clear. Cor: RRR without murmur. GI: Soft/ND/NT. Neuro: A+O x 3. Normal speech, mentation. Cranial nerves II - XII grossly intact. No gross motor or sensory deficit. Ext: LLE with wound vac covering entire stump of AKA. Bleeding noted. No erythema or warmth. Medical Decision Making Patient presenting after controlled fall with no injury except possibly to her wound/stump. She has been feeling weak and thinks it is related to the vaginal bleeding she has been having as she has been off medications. She otherwise has no complaints. She believes her breathing is actually much better than it usually is. No fever or cough, no abdominal pain or vomiting, no urinary symptoms. Reasonable to check a CBC and BMP. Will need to take the wound VAC dressing off to evaluate the stump better. Need to make sure we have the material so that wound VAC can be reattached after assessment. Patient's hemoglobin is 10.6 tonight. She was 9.6 at discharge from [place]. Chemistries and renal function normal. Per nursing clay shop supervisor, we are not supposed to be changing wound vacs without the surgeons specific orders. Also i nformed that we do not have a large enough dressing to change the wound VAC. We could elect to remove the wound VAC dressing to evaluate her stump and then use wet-to-dry dressing. Patient is hesitant with this because she says it does put out a fair amount of drainage throughout the day. Case discussed with our surgeon on-call, Dr. Flood, who recommends leaving the current dressing intact given that we were able to reseal and have a vacuum. Home nursing can then change the dressing and evaluate the wound once her supplies have come in which should be this week. They can then discuss with the surgeon at [facility] any recommendations or changes he may want. Patient is comfortable with this plan. She may follow-up with primary care for general health. Return precautions provided. Medical Records Medical records reviewed: Yes I reviewed the patient's medical records. Medical records narrative: d/c summary for [facility] Lab Data Lab results reviewed: Yes I reviewed the patient's lab results. Lab results narrative: see MDM Quality:SDOH Health Related Social Needs: Health related social needs problems with daily activi ties (Z73.9) [facility] All Active Problems (Updated 10/10/24 @ 23:42 by Juan Helm MD) Encounter for management of wound VAC (Acute) On deep vein thrombosis (DVT) prophylaxis (Acute) Advanced care planning/counseling discussion (Acute) Palliative care patient (Acute) Elevated liver enzymes (Acute) Exertional shortness of breath (Acute) Heart failure with preserved ejection fraction (Acute) Wound dehiscence (Acute) Thickened endometrium (Acute) Postmenopausal bleeding (Acute) Venous stasis dermatitis (Acute) Chronic headaches (Chronic) Recent Neurology consult for possible papilledema. Urinary incontinence (Chronic) On Detrol Recurrent UTI (Chronic) Right ventricular dysfunction (Chronic) Knee pain, bilateral (Chronic 07/23/14) s/p bilat TKR (left infected with mult surg and decreased mobility) Morbid obesity (Acute 04/05/13) Sensorineural hearing loss, bilateral (Chronic 08/29/13) Advance directive on file (Acute) Low back pain with sciatica (Chronic 05/03/14) [place] [facility] [place] stenosis Varicose veins of lower extremity (Chronic) Depression (Chronic) Grief at loss of child (Acute) Mixed conductive and sensorineural hearing loss of both ears (Acute) Right carpal tunnel syndrome (Acute) Arthritis of right hand (Acute) Impingement of right ulnar nerve (Acute) Dermoid cyst of neck (Acute) Microcalcifications of the breast (Acute) Neuropathy of left hand (Acute) Neuropathy of right hand (Acute) Bilateral carpal tunnel syndrome (Acute) Medical History Hypothyroidism DAVID (obstructive sleep apnea) on BiPap Chronic respiratory failure with hypoxia and hypercapnia home BiPap Anxiety GERD (gastroesophageal reflux disease) had negative barium esophagram in 11/2022. COPD (chronic obstructive pulmonary disease) Atrial fibrillation CHF (congestive heart failure) Lymphedema Hx pulmonary embolism (~2015) treated with lovenox x 3 months Surgical History S/P AKA (above knee amputation) (~09/2024) Status post thyroidectomy History of fasciotomy History of Surgical Procedure a. Right and left toal knee replacements. b. Left knee has been repeatedly operated on with slava surgies, three replacem ents. Replacement of total knee joint Bilateral; left-became [id number] surgeries Fasciotomy, Foot (~1996) LEFT Family History Mother Diabetes Personal history of malignant neoplasm LUNG Father Personal history of malignant neoplasm BRAIN Grandfather No problems noted. Grandfather No problems noted. Grandmother No problems noted. Grandmother No problems noted. Social History Smoking/Tobacco Use Status: Former Tobacco Use tobacco type: cigarettes Quit Date: 01/21/21 Second Hand Exposure: Yes Smoking risk assessment performed?: Yes Alcohol Intake: never Drug use: Never Substance use type: does not use Counseling given: No Housing: house Communication Needs: Hard of Hearing and Corrective Lenses Pets and animals: Yes Pets and animals: cat(s) Sexually active: Yes Current gender identity: female What is your relationship status?: never How often do you talk on the phone with friends or family?: decline to answer How often do you get together with friends or relatives?: decline to answer How often do you attend christian or advent services?: decline to answer Do you belong to any clubs or organized social groups?: no Panel score (0-1 are the most socially isolated patients): 0 Seatbelt use: never Do you feel safe at home: Yes Do you feel safe in your relationship?: Yes
[2024-10-10 22:30] VITALS: BP 130/45; PULSE 92; RESP 20; O2SAT 95
[2024-10-10 23:04] LABS: Abs Immature Grans 0.09 10^3/uL (0.0-0.06); Absolute Basophil Count 0.06 10^3/uL (0.0-0.2); Absolute Eosinophil Count 0.32 10^3/uL (0.0-0.7); Absolute Lymphocyte Count 1.49 10^3/uL (1.2-3.4); Absolute Monocyte Count 1.12 10^3/uL (0.1-0.8); Absolute Neutrophil Count 9.56 10^3/uL (1.2-6.7); Basophils % 0.5 %; Eosinophils % 2.5 %; HGB 10.1 g/dL (11.2-15.7); Immature Grans % 0.7 %; Lymphocytes % 11.8 %; MCH 26.1 pg (27.0-33.0); MCHC 30.6 % (32.0-36.0); MCV 85 fL (80-95); MPV 8.9 fL (8.0-11.0); Monocytes % 8.9 %; Neutrophils % 75.6 %; Platelet Count 511 10^3/uL (130-400); RBC 3.87 10^6/uL (3.93-5.22); RDW 19.7 % (11.7-14.6); RDW-SD 60.4 fL; WBC 12.64 10^3/uL (4.4-10.8)
[2024-10-10 23:15] LABS: Anion Gap 4.5 mmol/L (3-11); BUN 11 mg/dL (7-18); CO2 34.5 mmol/L (21.0-32.0); CREATININE 0.8 mg/dL (0.55-1.02); Calcium 8.2 mg/dL (8.5-10.1); Chloride 101 mmol/L (98-107); Estimated GFR 80.21 (mL/min/1.73m2); Glucose 105 mg/dL (74-106); Potassium 3.8 mmol/L (3.5-5.1); Sodium 140 mmol/L (136-145)
[2024-10-11 00:02] VITALS: BP 130/45; PULSE 92; RESP 20; TEMP 37; O2SAT 95
== END 2024-10-11 00:02 | disposition home or self-care (01) ==
PROVIDERS: Emergency Provider Emergency Medicine; PCP Family Medicine
DX: T85.638A Leakage of other specified internal prosthetic devices, implants and grafts, initial encounter (principal); J44.9 Chronic obstructive pulmonary disease, unspecified; I48.91 Unspecified atrial fibrillation; I50.9 Heart failure, unspecified; E89.0 Postprocedural hypothyroidism; Z86.711 Personal history of pulmonary embolism; Z99.81 Dependence on supplemental oxygen; Z89.612 Acquired absence of left leg above knee
CPT/HCPCS: 36415; 80048; 99282; 85025

== ENCOUNTER 2024-11-19 12:11 | Emergency (ER) | payer MEDICARE, MEDICAID, SELFPAY ==
[2024-11-19] VITALS (20 sets, daily range): BP systolic 116; BP diastolic 63; PULSE 90–110; RESP 5–36; TEMP 36.9; O2SAT 84–100
--- NOTE | 2024-11-19 12:15 | RT.EKG_ITS ---
APPROVED REPORT Exam: Resting ECG Reason for Exam: SOB Patient Location: E HR:90 bpm ECG Measurements Heart Rate 90 AXIS MT [id number] P [id number] QRSd 98 QRS 56 QT 377 T 46 QTc 461 Conclusion Atrial flutter...A-rate 220 Low voltage, precordial leads...precordial leads <1.0mV No STEMI
--- NOTE | 2024-11-19 12:15 | DI.RAD_ITS ---
Exam(s) XR CHEST 2V PA LATERAL EXAM: XR CHEST 2V PA LATERAL CLINICAL HISTORY: SOB, cough TECHNIQUE: 2D digital imaging was performed. Two views. COMPARISON: CR XR CHEST 2V PA LATERAL from 09/15/2024 FINDINGS: Exam is limited by the patient's body habitus. HEART: Dilated. Aorta: Not dilated. PULMONARY VASCULATURE: Normal. MEDIASTINUM: Unremarkable. LUNGS: Increased interstitial markings and vascular prominence greater at the lung bases, suspicious for CHF. No gross evidence of focal consolidation. PLEURAL SPACE: No pleural effusion or pneumothorax. BONE:Unremarkable for age. SOFT TISSUES: Unremarkable. IMPRESSION: Limited exam. Probable CHF. DATA REPOSITORY: RADIATION DOSE DELIVERED:
--- NOTE | 2024-11-19 12:20 | ED.GENADUL_ITS ---
Discharge Plan Disposition Patient Disposition: Home Condition: Improving Discharge Details Clinical Impression: COPD exacerbation Primary Care Provider: Alphonso Murphy ED Provider: Rosa Arellano Home Meds and New Rx's Prescriptions: New prednisone 10 mg tablet 10 mg PO DIRECTED Qty: 30 0RF Rx Instructions: 50mg next two days 40 mg x 2 days 30mg x 2 days 20mg x 2 days 10mg x 2 days ciprofloxacin HCl 750 mg tablet 750 mg PO BID 5 Days Qty: 10 0RF ipratropium-albuterol 0.5 mg-3 mg(2.5 mg base)/3 mL solution for nebulization 3 ml inhalation Q6H PRN (Reason: shortness of breath or wheezing) Qty: 90 0RF Continued albuterol sulfate 90 mcg/actuation HFA aerosol inhaler 1 - 2 puff Inhalation Q6H PRN Qty: 1 11RF ipratropium-albuterol 0.5 mg-3 mg(2.5 mg base)/3 mL solution for nebulization 3 ml IH QID MDD 4 nebs Qty: 180 3RF fluticasone propionate [Flonase Allergy Relief] 50 mcg/actuation spray,suspension 1 spray NS DAILY Qty: 1 8RF potassium chloride [Klor-Con M20] 20 mEq tablet,ER particles/crystals 20 meq PO DAILY Qty: 90 3RF gabapentin 300 mg capsule 600 mg PO TID ascorbic acid (vitamin C) 1,000 MG tablet 1,000 mg PO DAILY (DME) Aerochamber Mini 1 EACH spacer 1 ea Inhalation PRN Qty: 1 Rx Instructions: DIRECTED WITH INHALER BiPAP Inhalation Gas 5 l IN DIRECTED Rx Instructions: sleep apnea ([facility] sleep lab 2012) uses with oxygen betamethasone, augmented 0.05 % lotion 1 applic topical BID PRN (Reason: allergic reaction) Qty: 60 2RF levothyroxine 200 mcg tablet 200 mcg PO DAILY Qty: 90 3RF oxygen Inhalation 3 l Intranasal DIRECTED Patient Comments: Continuous and uses with bipap Rx Instructions: 3L/NC continuous alclometasone 0.05 % cream 1 applic topical BID PRN (Reason: itching) Qty: 45 1RF ketoconazole 2 % cream 1 applic topical BID PRN (Reason: facial rash) Qty: 60 1RF furosemide 80 mg tablet 80 mg PO BID@0830,1600 Qty: 60 0RF pantoprazole 20 mg tablet,delayed release (DR/EC) 20 mg PO DAILY Qty: 90 3RF Rx Instructions: 04/13/23 Per GI. -hb sertraline 50 mg tablet 50 mg PO DAILY Qty: 90 3RF cephalexin 500 mg capsule 500 mg PO QID Qty: 28 0RF norethindrone acetate 5 mg tablet 10 mg PO BID Qty: 180 1RF calcium carbonate-vitamin D3 600 mg-5 mcg (200 unit) Tablet 1 tab PO BID Qty: 30 0RF ferrous sulfate 325 mg (65 mg iron) tablet 325 mg PO Q OTHER DAY Qty: 15 2RF nystatin 100,000 unit/gram powder 1 applic TP BID Qty: 30 5RF BiomePRO 50 billion cell capsule,delayed release(DR/EC) 1 cap PO DAILY Qty: 4 0RF Rx Instructions: Take 3 hours apart form any antibiotics Discharge Instructions Instructions: COPD Exacerbation, Adult ED Additional Instructions: As we discussed, your history and exam are most consistent with a COPD exacerbation. While your x-ray was not suggestive of pneumonia, the large amount of sputum you could bring up as well as your history of COPD does have me also concern for pneumonia. Please continue to encourage hydration. Take your basic medications as prescribed. Please take the steroids, antibiotics as prescribed. Even if your symptoms improved, please take the entire course. If you develop any new or worsening symptoms please seek care urgently once again. Otherwise, please follow-up with primary care in 1 week for reevaluation. Referrals: Alphonso Murphy MD [Primary Care Provider] - Discharge Data Discharge Date/Time-TO BE ENTERED AT DEPARTURE: 11/19/24 16:15 HPI General Date/Time Provider Initiated Documentation: 11/19/24 12:20 . Limitations to Documentation: no limitations . Information obtained by: patient, RN notes reviewed and old records reviewed . History of Present Illness 69 year old F presents to the emergency department with the chief complaint of SOB, cough, increased sputum production, described as moderate and similar to prior episodes, Quality is described as other (denies any pain), and is localized to the chest. Patient reports no radiation. Patient started experiencing this day(s) and it has been constant. Medication improves symptom(s), (albuterol offers temporary relief) Movement worsens symptoms . Patient notes no other symptoms.. Patient did receive the following treatments prior to arrival, other (albuterol) Related Data Home Medications ?Medication ?Instructions ?Recorded ?Confirmed ascorbic acid (vitamin C) 1,000 mg 1,000 mg PO DAILY 11/25/12 11/19/24 tablet inhalational spacing device ##1 12/21/13 11/19/24 (Aerochamber Mini) Bipap 5 l IN DIRECTED 07/23/14 11/19/24 betamethasone, augmented 0.05 % 1 applic topical BID PRN allergic 06/20/21 11/19/24 lotion reaction #60 mL levothyroxine 200 mcg tablet 200 mcg PO DAILY #90 tabs 02/15/24 11/19/24 oxygen 3 l intranasal DIRECTED 04/02/24 11/19/24 ferrous sulfate 325 mg (65 mg 325 mg PO Q OTHER DAY #15 tabs 04/12/24 11/19/24 iron) tablet alclometasone 0.05 % topical cream 1 applic topical BID PRN itching 04/17/24 0 11/19/24 #45 grams ketoconazole 2 % topical cream 1 applic topical BID PRN facial 04/17/24 11/19/24 rash #60 grams L. acidophilus,casei,rhamnosus 50 1 cap PO DAILY #4 caps 06/04/24 11/19/24 billion cell capsule,delayed release (BiomePRO) nystatin 100,000 unit/gram topical 1 applic topical BID intertrigo 06/04/24 11/19/24 powder #30 grams albuterol sulfate 90 mcg/actuation 1 - 2 puff inhalation Q6H PRN ##1 07/17/24 11/19/24 aerosol inhaler fluticasone propionate 50 1 spray NS DAILY ##1 07/17/24 11/19/24 mcg/actuation nasal spray,suspension (Flonase Allergy Relief) ipratropium 0.5 mg-albuterol 3 mg 3 ml inhalation QID COPD 07/17/24 11/19/24 (2.5 mg base)/3 mL nebulization exacerbation/wheezing #180 mL soln potassium chloride 20 mEq 20 meq PO DAILY #90 tabs 07/17/24 11/19/24 tablet,extended release(part/cryst) (Klor-Con M) furosemide 80 mg tablet 80 mg PO BID@0830,1600 #60 tabs 07/26/24 11/19/24 pantoprazole 20 mg tablet,delayed 20 mg PO DAILY #90 tabs 07/26/24 11/19/24 release sertraline 50 mg tablet 50 mg PO DAILY #90 tabs 07/26/24 11/19/24 cephalexin 500 mg capsule 500 mg PO QID wound infection--leg 09/04/24 11/19/24 #28 caps calcium 600 mg (as 1 tab PO BID #30 tabs 09/14/24 11/19/24 carbonate)-vitamin D3 5 mcg (200 unit) tablet norethindrone acetate 5 mg tablet 10 mg (2 x 5 mg) PO BID #180 tabs 10/02/24 11/19/24 gabapentin 300 mg capsule 600 mg PO TID 10/11/24 11/19/24 ciprofloxacin HCl 750 mg tablet 750 mg PO BID 5 days #10 tabs 11/19/24 ipratropium 0.5 mg-albuterol 3 mg 3 ml inhalation Q6H PRN shortness 11/19/24 (2.5 mg base)/3 mL nebulization of breath or wheezing #90 mL soln prednisone 10 mg tablet 10 mg PO DIRECTED #30 tabs 11/19/24 Previous Rx's ?Medication ?Instructions ?Recorded betamethasone, augmented 0.05 % 1 applic topical BID PRN allergic 06/20/21 lotion reaction #60 mL levothyroxine 200 mcg tablet 200 mcg PO DAILY #90 tabs 02/15/24 ferrous sulfate 325 mg (65 mg 325 mg PO Q OTHER DAY #15 tabs 04/12/24 iron) tablet alclometasone 0.05 % topical cream 1 applic topical BID PRN itching 04/17/24 #45 grams ketoconazole 2 % topical cream 1 applic topical BID PRN facial 04/17/24 rash #60 grams L. acidophilus,casei,rhamnosus 50 1 cap PO DAILY #4 caps 06/04/24 billion cell capsule,delayed release (BiomePRO) nystatin 100,000 unit/gram topical 1 applic topical BID intertrigo 06/04/24 powder #30 grams albuterol sulfate 90 mcg/actuation 1 - 2 puff inhalation Q6H PRN ##1 07/17/24 aerosol inhaler fluticasone propionate 50 1 spray NS DAILY ##1 07/17/24 mcg/actuation nasal spray,suspension (Flonase Allergy Relief) ipratropium 0.5 mg-albuterol 3 mg 3 ml inhalation QID COPD 07/17/24 (2.5 mg base)/3 mL nebulization exacerbation/wheezing #180 mL soln potassium chloride 20 mEq 20 meq PO DAILY #90 tabs 07/17/24 tablet,extended release(part/cryst) (Klor-Con M) furosemide 80 mg tablet 80 mg PO BID@0830,1600 #60 tabs 07/26/24 pantoprazole 20 mg tablet,delayed 20 mg PO DAILY #90 tabs 07/26/24 release sertraline 50 mg tablet 50 mg PO DAILY #90 tabs 07/26/24 cephalexin 500 mg capsule 500 mg PO QID wound infection--leg 09/04/24 #28 caps calcium 600 mg (as 1 tab PO BID #30 tabs 09/14/24 carbonate)-vitamin D3 5 mcg (200 unit) tablet norethindrone acetate 5 mg tablet 10 mg (2 x 5 mg) PO BID #180 tabs 10/02/24 ciprofloxacin HCl 750 mg tablet 750 mg PO BID 5 days #10 tabs 11/19/24 ipratropium 0.5 mg-albuterol 3 mg 3 ml inhalation Q6H PRN shortness 11/19/24 (2.5 mg base)/3 mL nebulization of breath or wheezing #90 mL soln prednisone 10 mg tablet 10 mg PO DIRECTED #30 tabs 11/19/24 Allergies Allergy/AdvReac Type Severity Reaction Status Date / Time hydrocodone Allergy Severe ITCHING Verified 11/19/24 12:22 morphine Allergy Mild PRURITIS Verified 11/19/24 12:22 oxycodone Allergy Mild ITCHING Verified 11/19/24 12:22 General REUBEN: 3 Review of Systems Constitutional Constitutional: Reports as per HPI, Denies chills, Denies fever(s), Denies headache(s), Reports lethargy and Denies poor appetite Eyes Eyes: Denies change in vision ENT Ears, Nose, Mouth, and Throat: Denies dizziness and Denies headache(s) Cardiovascular Cardiovascular: Reports as per HPI, Denies chest pain, Denies pedal edema (reports chronic swelling, no increase), Reports dyspnea and Reports dyspnea on exertion Respiratory Respiratory: Reports as per HPI, Reports change in phlegm color, Reports chest congestion, Reports cough, Denies hemoptysis, Denies pain on inspiration, Denies pain with cough, Reports dyspnea, Reports dyspnea on exertion and Reports wheezing Gastrointestinal Gastrointestinal: Reports as per HPI, Denies abdominal pain, Denies diarrhea, Denies nausea and Denies vomiting Musculoskeletal Musculoskeletal: Reports as per HPI and Denies back pain Integumentary/Breasts Skin/Breast: Reports as per HPI and Denies rash Neurologic Neurologic: Reports as per HPI, Denies dizziness and Denies headache(s) Allergic/Immunologic Allergic/Immunologic: Reports wheezing Exam Const General: cooperative, comfortable, no acute distress and ill appearing chronically Nutritional Appearance: well nourished and obese Orientation: alert, awake and oriented x3 HENMT Head: normal to inspection Ears: hearing grossly normal bilaterally Mouth: moist mucous membranes Chest Chest: normal inspection of the chest, normal palpation of entire chest wall and no crepitus Resp Effort & Inspection: normal respiratory effort, able to speak in complete sentences and no respiratory distress Auscultation: no rales, no rhonchi and wheezes (in all lobes) expiratory wheezes Cardio Rate: regular rate Rhythm: regular rhythm Heart Sounds: S1 normal and S2 normal Back/Spine/Pelvis Back: no CVA tenderness Thoracic/Lumbar Spine: thoracic and lumbar spine normal to inspection Skin General skin exam: no rashes or lesions noted Trauma: no lacerations or abrasions Neuro General: patient alert, patient awake and patient oriented x3 Cognition: normal cognition Speech: speech normal Gait: normal gait Extrem General: capillary refill normal, no calf tenderness, abnormal gait (in wheelch air) and edema Laterality: bilateral Psych Appearance: grossly normal and well kempt Mental Status: mental status grossly normal Speech and Movement: speech and movement normal Medical Decision Making Patient is a pleasant 69 year old female, well known to myself and the departments, presenting with c/c SOB and increase work of breathing. Radha has hx of DAVID, chronic respiratory failure, anxiety, COPD, a.fib, lymphedema. She has chronic NC O2 use at home. She uses BiPap at night. Chronic diuretic use. She states this began a few days ago, has had cough and increased sputum production of various colors. She reports grand daughter has been ill. She states that she has had some runny nose but no other significant symptoms. Has found relief with her albuterol but that is it. On exam, patient spapears chronically unwell. While wheezing, she does not appear to be in respiratory failure. Initially, she was hypoxic but her O2 is maintained in the mid to high 90s on her baseline O2. She ahs diffuse wheezing noted, sounds very tight. BLE are edematous but this is chronic and patient reports unchanged from previous. Based on hx and course of disease, primarily concerned about infectious etiology leading to COPD exacerbation. Do not see indication for ACS but did consider this as well as CHF, viral illness, eposure leading to increased COPD vs. other. Will obtain CXR, have RT evaluate and give duonebs, labs. Patient feels improved after nebs. RT concerned for patient sounding more wet. Will give dose of Lasix. The advised she is at her baseline O2 with good O2, do not feel increasing necessary. Labs reviewed, mild leukocytosis, chronically low H&H but stable. Trop and BNP WNL. CXR reviewed by radiology, they report limited exam but probably CHF. She is negative for flu and covid. Due to acuity, there was a slight delay in patient getting her steroids and Lasix. She is feeling significantly better. Requesting d/c to home. Based on her increased sputum, change in color, reent sick contact and increased wheezing, concerned for infectious etiology with COPD exacerbation. Considered CHF exacervation as well but she has never had a drop in her EF on review of previous echos. She has diuretics that she can increase if needed. Encoruaged close f/u with PCP. Startged on abx. She reports needing 10 days steroids rather than traditional burst therapy in setting of COPD exaceration, will give taper. Also encuraged close f/u with PCP. Return precautions discussed, patient is in agreement with this plan. Her O2 has been in the mid to high 90s when evatluated by myself. All of her questions and concerns were addressed, she is in agreement with this plan. Quality:SDOH Health Related Social Needs: Health related social needs problems with daily activi ties (Z73.9) PFSH All Active Problems (Updated 11/19/24 @ 16:05 by INESSA Ngo) COPD exacerbation (Acute) Left above-knee amputee (Acute) On deep vein thrombosis (DVT) prophylaxis (Acute) Advanced care planning/counseling discussion (Acute) Elevated liver enzymes (Acute) Exertional shortness of breath (Acute) Heart failure with preserved ejection fraction (Acute) Wound dehiscence (Acute) Thickened endometrium (Acute) Postmenopausal bleeding (Acute) Venous stasis dermatitis (Acute) Chronic headaches (Chronic) Recent Neurology consult for possible papilledema. Urinary incontinence (Chronic) On Detrol Recurrent UTI (Chronic) Right ventricular dysfunction (Chronic) Knee pain, bilateral (Chronic 07/23/14) s/p bilat TKR (left infected with mult surg and decreased mobility) Morbid obesity (Acute 04/05/13) Sensorineural hearing loss, bilateral (Chronic 08/29/13) Advance directive on file (Acute) Low back pain with sciatica (Chronic 05/03/14) CT at [facility] [place] L34 spinal stenosis Varicose veins of lower extremity (Chronic) Depression (Chronic) Grief at loss of child (Acute) Mixed conductive and sensorineural hearing loss of both ears (Acute) Right carpal tunnel syndrome (Acute) Arthritis of right hand (Acute) Impingement of right ulnar nerve (Acute) Dermoid cyst of neck (Acute) Microcalcifications of the breast (Acute) Neuropathy of left hand (Acute) Neuropathy of right hand (Acute) Bilateral carpal tunnel syndrome (Acute) Medical History (Updated 11/19/24 @ 16:05 by INESSA Ngo) Palliative care patient Hypothyroidism DAVID (obstructive sleep apnea) on BiPap Chronic respiratory failure with hypoxia and hypercapnia home BiPap Anxiety GERD (gastroesophageal reflux disease) had negative barium esophagram in 11/2022. COPD (chronic obstructive pulmonary disease) Atrial fibrillation CHF (congestive heart failure) Lymphedema Hx pulmonary embolism (~2015) treated with lovenox x 3 months Surgical History S/P AKA (above knee amputation) (~09/2024) Status post thyroidectomy History of fasciotomy History of Surgical Procedure a. Right and left toal knee replacements. b. Left knee has been repeatedly operated on with slava surgies, three replacements. Replacement of total knee joint Bilateral; left-became [id number] surgeries Fasciotomy, Foot (~1996) LEFT Family History Mother Diabetes Personal history of malignant neoplasm LUNG Father Personal history of malignant neoplasm BRAIN Grandfather No problems noted. Grandfather No problems noted. Grandmother No problems noted. Grandmother No problems noted. Social History Smoking/Tobacco Use Status: Former Tobacco Use tobacco type: cigarettes Quit Date: 01/21/21 Second Hand Exposure: Yes Smoking risk assessment performed?: Yes Alcohol Intake: never Drug use: Never Substance use type: does not use Counseling given: No Housing: house Communication Needs: Hard of Hearing and Corrective Lenses Pets and animals: Yes Pets and animals: cat(s) Sexually active: Yes Current gender identity: female What is your relationship status?: never How often do you talk on the phone with friends or family?: decline to answer How often do you get together with friends or relatives?: decline to answer How often do you attend adventist or denominational services?: decline to answer Do you belong to any clubs or organized social groups?: no Panel score (0-1 are the most socially isolated patients): 0 Seatbelt use: never Do you feel safe at home: Yes Do you feel safe in your relationship?: Yes
[2024-11-19] MEDS: Albuterol/Ipratropium 3 ML UPD VIAL 9 ML UPD (12:28)
[2024-11-19] MEDS: methylPREDNISolone SUCC 125 MG VIAL IVP (12:35)
[2024-11-19 13:09] LABS: Abs Immature Grans 0.06 10^3/uL (0.0-0.06); Absolute Basophil Count 0.05 10^3/uL (0.0-0.2); Absolute Eosinophil Count 0.18 10^3/uL (0.0-0.7); Absolute Lymphocyte Count 3.13 10^3/uL (1.2-3.4); Absolute Monocyte Count 1.14 10^3/uL (0.1-0.8); Absolute Neutrophil Count 8.26 10^3/uL (1.2-6.7); Basophils % 0.4 %; Eosinophils % 1.4 %; HCT 33.1 % (36.0-46.0); HGB 9.9 g/dL (11.2-15.7); Immature Grans % 0.5 %; Lymphocytes % 24.4 %; MCH 23.7 pg (27.0-33.0); MCHC 29.9 % (32.0-36.0); MCV 79 fL (80-95); MPV 9.2 fL (8.0-11.0); Monocytes % 8.9 %; Neutrophils % 64.4 %; Platelet Count 338 10^3/uL (130-400); RBC 4.18 10^6/uL (3.93-5.22); RDW 18.4 % (11.7-14.6); RDW-SD 53.2 fL; WBC 12.82 10^3/uL (4.4-10.8)
[2024-11-19 13:46] LABS: ALT 59 U/L (14-59); AST 37 U/L (15-37); Alkaline Phosphatase 90 U/L (46-116); Anion Gap 6.3 mmol/L (3-11); BUN 9 mg/dL (7-18); Bilirubin, Total 1.5 mg/dL (0.2-1.0); CO2 31.7 mmol/L (21.0-32.0); CREATININE 0.6 mg/dL (0.55-1.02); Calcium 8.5 mg/dL (8.5-10.1); Chloride 101 mmol/L (98-107); Estimated GFR 97.71 (mL/min/1.73m2); Glucose 105 mg/dL (74-106); NT-proBNP 187 pg/mL (<300); Potassium 3.4 mmol/L (3.5-5.1); Sodium 139 mmol/L (136-145); Total Protein 7.9 g/dL (6.4-8.2); Troponin I 6 ng/L (<or=51)
[2024-11-19] MEDS: Furosemide 40 MG/4 ML VIAL IVP (14:50)
[2024-11-19] MEDS: Albuterol/Ipratropium 3 ML UPD VIAL UPD (14:51)
[2024-11-19 14:58] LABS: Troponin I 6 ng/L (<or=51)
[2024-11-19] MEDS: Ciprofloxacin 500 MG TAB PO (15:56)
== END 2024-11-19 16:15 | disposition home or self-care (01) ==
PROVIDERS: Emergency Provider Physician Assistant; PCP Family Medicine
DX: J44.1 Chronic obstructive pulmonary disease with (acute) exacerbation (principal); Z73.9 Problem related to life management difficulty, unspecified
CPT/HCPCS: 36415; 80053; 93005; 94640; 96374; 96375; 99284; 71046; 83880; 84484; 85025; 93010; J1941; J2919; J7620

== ENCOUNTER 2024-11-28 13:25 | Inpatient (IN) | payer MEDICARE, MEDICAID, SELFPAY ==
[2024-11-28] VITALS (97 sets, daily range): BP systolic 94–189; BP diastolic 37–156; PULSE 58–102; RESP 16–33; TEMP 36.8–36.9; O2SAT 3–96
--- NOTE | 2024-11-28 14:16 | W.ED.GENAD ---
Discharge Plan Disposition Patient Disposition: Admit to [facility] Condition: Stable Discharge Details Chief Complaint: SOB Clinical Impression: Acute exacerbation of CHF (congestive heart failure), COPD exacerbation, Acute on chronic hypoxic respiratory failure Primary Care Provider: Alphonso Murphy ED Provider: Leyda Bautista Home Meds and New Rx's Prescriptions: No Action albuterol sulfate 90 mcg/actuation HFA aerosol inhaler 1 - 2 puff Inhalation Q6H PRN Qty: 1 11RF ipratropium-albuterol 0.5 mg-3 mg(2.5 mg base)/3 mL solution for nebulization 3 ml IH QID MDD 4 nebs Qty: 180 3RF fluticasone propionate [Flonase Allergy Relief] 50 mcg/actuation spray,suspension 1 spray NS DAILY Qty: 1 8RF potassium chloride [Klor-Con M20] 20 mEq tablet,ER particles/crystals 20 meq PO DAILY Qty: 90 3RF alclometasone 0.05 % cream 1 applic topical BID PRN (Reason: itching) Qty: 45 1RF ketoconazole 2 % cream 1 applic topical BID PRN (Reason: facial rash) Qty: 60 1RF metolazone 2.5 mg tablet 2.5 mg PO .q tues/frid Qty: 20 0RF gabapentin 300 mg capsule 600 mg PO TID PRN ascorbic acid (vitamin C) 1,000 MG tablet 1,000 mg PO DAILY (DME) Aerochamber Mini 1 EACH spacer 1 ea Inhalation PRN Qty: 1 Rx Instructions: DIRECTED WITH INHALER BiPAP Inhalation Gas 5 l IN DIRECTED Rx Instructions: sleep apnea ([facility] sleep lab 2012) uses with oxygen betamethasone, augmented 0.05 % lotion 1 applic topical BID PRN (Reason: allergic reaction) Qty: 60 2RF levothyroxine 200 mcg tablet 200 mcg PO DAILY Qty: 90 3RF oxygen Inhalation 3 l Intranasal DIRECTED Patient Comments: Continuous and uses with bipap Rx Instructions: 3L/NC continuous furosemide 80 mg tablet 80 mg PO BID@0830,1600 Qty: 60 0RF pantoprazole 20 mg tablet,delayed release (DR/EC) 20 mg PO DAILY Qty: 90 3RF Rx Instructions: 04/13/23 Per GI. -hb sertraline 50 mg tablet 50 mg PO DAILY Qty: 90 3RF norethindrone acetate 5 mg tablet 10 mg PO BID Qty: 180 1RF nystatin 100,000 unit/gram powder 1 applic TP BID Qty: 30 5RF BiomePRO 50 billion cell capsule,delayed release(DR/EC) 1 cap PO DAILY Qty: 4 0RF Rx Instructions: Take 3 hours apart form any antibiotics ipratropium-albuterol 0.5 mg-3 mg(2.5 mg base)/3 mL solution for nebulization 3 ml inhalation Q6H PRN (Reason: shortness of breath or wheezing) Qty: 90 0RF HPI General Mode of arrival: wheelchair. Date/Time Provider Initiated Documentation: 11/28/24 13:47. Limitations to Documentation: no limitations. Information obtained by: patient and old records reviewed. HPI Narrative: HPI: This is a 69-year-old female patient with a past medical history significant for COPD, oxygen dependent, a history of heart failure, wheelchair-bound who is presenting for evaluation of shortness of breath and hypoxia. The patient reports that she has been sick for 2 weeks, with increasing work of breathing, low oxygen sats, and a cough productive of nonbloody sputum. She has not noted a fever, states that she has been using her nebulizer treatments every 4 hours without significant improvement. She has been recently started on a second diuretic, which she has been taking to good effect and has noted some decrease in her peripheral edema. However, she has not noted any improvement in her work of breathing with this medication change. Today, the patient was seen by urgent care, and was noted to be hypoxic to 81% on her 3 L of oxygen. She was sent here to this emergency department for reevaluation. Exam: Gen: Awake and alert, appears chronically ill and in moderate respiratory distress HEENT: Non-icteric sclera Neck: Supple Lungs: Tachypneic, appears short of breath, with diffuse coarse crackles and expiratory wheezing throughout lung dubose CV: Appears well perfused, heart with regular rate and rhythm, strong distal pulses Abdomen: Non-distended MSK: Moves extremities without apparent limitation in ROM, s/p L. AKA. The patient does have 2+ peripheral edema to the R. lower extremity Skin: Visualized skin without rashes, cyanosis. Neuro: No obvious focal deficits or facial asymmetry. Speaks in full, clear sentences. Psych: Appropriate for situation. MDM: This is a 69-year-old female patient presenting for evaluation of 2 weeks of worsening shortness of breath, hypoxia, and productive cough. My differential includes but is not limited to COPD exacerbation, pneumonia, bronchitis, URI, pulmonary edema, pleural effusion. Considered heart failure exacerbation. No chest pain to suggest ACS, the diffuse wheezing and crackles will be less consistent with pulmonary embolism. We will provide the patient with a duo nebulizer treatment as well as a dose of methylprednisolone, obtain a chest x-ray and obtain laboratory studies to include CBC, CMP, magnesium, troponin, and BNP. The patient was increased to 5 L/min with a goal to maintain sats greater than 88%. ED Course: I reviewed the patient's laboratory studies, which do show leukocytosis to 19, no anemia or thrombocytopenia. Chemistry panel is most notable for hypokalemia to 2.4 which was repleted orally and intravenously. The patient has an elevated bicarb likely due to chronic hypercarbic respiratory failure, kidney function at baseline, no evidence of significant liver dysfunction. Troponin was negative and without delta change on 1 hour recheck, no further troponins required. BNP is low at 287, though with the patient's history of obesity I would not be surprised if this was falsely decreased. X-ray with diffuse pulmonary edema concerning for CHF, cannot exclude pneumonia given the leukocytosis and change in sputum will empirically treat with ceftriaxone and azithromycin. After repletion of potassium I did provide the patient with 40 mg of Lasix IV, and discussed her care with the hospitalist service, who is graciously accepted her for admission for ongoing diuresis. The patient remained hemodynamically improved while under my care was transferred from this department without incident. Leyda Bautista MD Related Data Home Medications ?Medication ?Instructions ?Recorded ?Confirmed ascorbic acid (vitamin C) 1,000 mg 1,000 mg PO DAILY 11/25/12 11/28/24 tablet inhalational spacing device ##1 12/21/13 11/28/24 (Aerochamber Mini) Bipap 5 l IN DIRECTED 07/23/14 11/28/24 betamethasone, augmented 0.05 % 1 applic topical BID PRN allergic 06/20/21 11/28/24 lotion reaction #60 mL levothyroxine 200 mcg tablet 200 mcg PO DAILY #90 tabs 02/15/24 11/28/24 oxygen 3 l intranasal DIRECTED 04/02/24 11/28/24 L. acidophilus,casei,rhamnosus 50 1 cap PO DAILY #4 caps 06/04/24 11/28/24 billion cell capsule,delayed release (BiomePRO) nystatin 100,000 unit/gram topical 1 applic topical BID intertrigo 06/04/24 11/28/24 powder #30 grams albuterol sulfate 90 mcg/actuation 1 - 2 puff inhalation Q6H PRN ##1 07/17/24 11/28/24 aerosol inhaler fluticasone propionate 50 1 spray NS DAILY ##1 07/17/24 11/28/24 mcg/actuation nasal spray,suspension (Flonase Allergy Relief) ipratropium 0.5 mg-albuterol 3 mg 3 ml inhalation QID COPD 07/17/24 11/28/24 (2.5 mg base)/3 mL nebulization exacerbation/wheezing #180 mL soln potassium chloride 20 mEq 20 meq PO DAILY #90 tabs 07/17/24 11/28/24 tablet,extended release(part/cryst) (Klor-Con M) furosemide 80 mg tablet 80 mg PO BID@0830,1600 #60 tabs 07/26/24 11/28/24 pantoprazole 20 mg tablet,delayed 20 mg PO DAILY #90 tabs 07/26/24 11/28/24 release sertraline 50 mg tablet 50 mg PO DAILY #90 tabs 07/26/24 11/28/24 norethindrone acetate 5 mg tablet 10 mg (2 x 5 mg) PO BID #180 tabs 10/02/24 11/28/24 gabapentin 300 mg capsule 600 mg PO TID PRN 10/11/24 11/28/24 ipratropium 0.5 mg-albuterol 3 mg 3 ml inhalation Q6H PRN shortness 11/19/24 11/28/24 (2.5 mg base)/3 mL nebulization of breath or wheezing #90 mL soln alclometasone 0.05 % topical cream 1 applic topical BID PRN itching 11/20/24 11/28/24 #45 grams ketoconazole 2 % topical cream 1 applic topical BID PRN facial 11/20/24 11/28/24 rash #60 grams metolazone 2.5 mg tablet 2.5 mg PO .q tues/frid #20 tabs 11/20/24 11/28/24 Previous Rx's ?Medication ?Instructions ?Recorded betamethasone, augmented 0.05 % 1 applic topical BID PRN allergic 06/20/21 lotion reaction #60 mL levothyroxine 200 mcg tablet 200 mcg PO DAILY #90 tabs 02/15/24 L. acidophilus,casei,rhamnosus 50 1 cap PO DAILY #4 caps 06/04/24 billion cell capsule,delayed release (BiomePRO) nystatin 100,000 unit/gram topical 1 applic topical BID intertrigo 06/04/24 powder #30 grams albuterol sulfate 90 mcg/actuation 1 - 2 puff inhalation Q6H PRN ##1 07/17/24 aerosol inhaler fluticasone propionate 50 1 spray NS DAILY ##1 07/17/24 mcg/actuation nasal spray,suspension (Flonase Allergy Relief) ipratropium 0.5 mg-albuterol 3 mg 3 ml inhalation QID COPD 07/17/24 (2.5 mg base)/3 mL nebulization exacerbation/wheezing #180 mL soln potassium chloride 20 mEq 20 meq PO DAILY #90 tabs 07/17/24 tablet,extended release(part/cryst) (Klor-Con M) furosemide 80 mg tablet 80 mg PO BID@0830,1600 #60 tabs 07/26/24 pantoprazole 20 mg tablet,delayed 20 mg PO DAILY #90 tabs 07/26/24 release sertraline 50 mg tablet 50 mg PO DAILY #90 tabs 07/26/24 norethindrone acetate 5 mg tablet 10 mg (2 x 5 mg) PO BID #180 tabs 10/02/24 ipratropium 0.5 mg-albuterol 3 mg 3 ml inhalation Q6H PRN shortness 11/19/24 (2.5 mg base)/3 mL nebulization of breath or wheezing #90 mL soln alclometasone 0.05 % topical cream 1 applic topical BID PRN itching 11/20/24 #45 grams ketoconazole 2 % topical cream 1 applic topical BID PRN facial 11/20/24 rash #60 grams metolazone 2.5 mg tablet 2.5 mg PO .q tues/frid #20 tabs 11/20/24 Allergies Allergy/AdvReac Type Severity Reaction Status Date / Time hydrocodone Allergy Severe ITCHING Verified 11/28/24 13:37 morphine Allergy Mild PRURITIS Verified 11/28/24 13:37 oxycodone Allergy Mild ITCHING Verified 11/28/24 13:37 General Stated Complaint: SOB REUEBN: 2 Course Vital Signs Vital signs: Vital Signs Temperature 36.8 C 11/28/24 13:27 Pulse 85 11/28/24 13:27 Respiratory Rate 22 11/28/24 13:27 Pulse Oximetry 81 L 11/28/24 13:27 Temperature 36.8 C 11/28/24 13:27 Temperature Source Oral 11/28/24 13:27 Pulse 85 11/28/24 13:27 Respiratory Rate 22 11/28/24 13:27 Blood Pressure Position Sitting 11/28/24 13:27 Pulse Oximetry 81 L 11/28/24 13:27 Oxygen Delivery Method Nasal Cannula 11/28/24 13:27 Oxygen Flow Rate 3 11/28/24 13:27 Pain Level 0 11/28/24 13:27 Medical Decision Making Quality:SDOH Health Related Social Needs: Health related social needs problems with daily activities (Z73.9) PFSH All Active Problems (Updated 11/28/24 @ 19:03 by Leyda Bautista MD) Acute on chronic hypoxic respiratory failure (Acute) Acute exacerbation of CHF (congestive heart failure) (Acute) COPD exacerbation (Acute) Left above-knee amputee (Acute) On deep vein thrombosis (DVT) prophylaxis (Acute) Advanced care planning/counseling discussion (Acute) Elevated liver enzymes (Acute) Exertional shortness of breath (Acute) Heart failure with preserved ejection fraction (Acute) Wound dehiscence (Acute) Thickened endometrium (Acute) Postmenopausal bleeding (Acute) Venous stasis dermatitis (Acute) Chronic headaches (Chronic) Recent Neurology consult for possible papilledema. Urinary incontinence (Chronic) On Detrol Recurrent UTI (Chronic) Right ventricular dysfunction (Chronic) Knee pain, bilateral (Chronic 07/23/14) s/p bilat TKR (left infected with mult surg and decreased mobility) Morbid obesity (Acute 04/05/13) Sensorineural hearing loss, bilateral (Chronic 08/29/13) Advance directive on file (Acute) Low back pain with sciatica (Chronic 05/03/14) [place] [facility] [place] Varicose veins of lower extremity (Chronic) Depression (Chronic) Grief at loss of child (Acute) Mixed conductive and sensorineural hearing loss of both ears (Acute) Right carpal tunnel syndrome (Acute) Arthritis of right hand (Acute) Impingement of right ulnar nerve (Acute) Dermoid cyst of neck (Acute) Microcalcifications of the breast (Acute) Neuropathy of left hand (Acute) Neuropathy of right hand (Acute) Bilateral carpal tunnel syndrome (Acute) Medical History (Updated 11/28/24 @ 19:03 by Leyda Bautista MD) Palliative care patient Hypothyroidism DAVID (obstructive sleep apnea) on BiPap Chronic respiratory failure with hypoxia and hypercapnia home BiPap Anxiety GERD (gastroesophageal reflux disease) had negative barium esophagram in 11/2022. COPD (chronic obstructive pulmonary disease) Atrial fibrillation CHF (congestive heart failure) Lymphedema Hx pulmonary embolism (~2015) treated with lovenox x 3 months Surgical History S/P AKA (above knee amputation) (~09/2024) Status post thyroidectomy History of fasciotomy History of Surgical Procedure a. Right and left toal knee replacements. b. Left knee has been repeatedly operated on with slava surgies, three replacements. Replacement of total knee joint Bilateral; left-became [id number] surgeries Fasciotomy, Foot (~1996) LEFT Family History Mother Diabetes Personal history of malignant neoplasm LUNG Father Personal history of malignant neoplasm BRAIN Grandfather No problems noted. Grandfather No problems noted. Grandmother No problems noted. Grandmother No problems noted. Social History Smoking/Tobacco Use Status: Former Tobacco Use tobacco type: cigarettes Quit Date: 01/21/21 Second Hand Exposure: Yes Smoking risk assessment performed?: Yes Alcohol Intake: never Drug use: Never Substance use type: does not use Counseling given: No Housing: house Communication Needs: Hard of Hearing and Corrective Lenses Pets and animals: Yes Pets and animals: cat(s) Sexually active: Yes Current gender identity: female What is your relationship status?: never How often do you talk on the phone with friends or family?: decline to answer How often do you get together with friends or relatives?: decline to answer How often do you attend nondenominational or mormon services?: decline to answer Do you belong to any clubs or organized social groups?: no Panel score (0-1 are the most socially isolated patients): 0 Seatbelt use: never Do you feel safe at home: Yes Do you feel safe in your relationship?: Yes
[2024-11-28] MEDS: Albuterol/Ipratropium 3 ML UPD VIAL UPD ×2 (14:51→20:54)
--- NOTE | 2024-11-28 15:26 | DI.RAD_ITS ---
Exam(s) XR CHEST 2V PA LATERAL EXAM: XR CHEST 2V PA LATERAL CLINICAL HISTORY: SOB, cough, in chair TECHNIQUE: 2D digital imaging was performed. Two views. COMPARISON: CR XR CHEST 2V PA LATERAL from 11/19/2024 FINDINGS: The exam is extremely limited by suboptimal penetration. Monitoring leads overlie the chest HEART: Enlarged. Aorta: Not well seen. PULMONARY VASCULATURE: Prominent. MEDIASTINUM: Unremarkable. LUNGS: Increased interstitial markings bilaterally greater at the bases, consistent with CHF. PLEURAL SPACE: No pleural effusion or pneumothorax. BONE:Unremarkable for age. SOFT TISSUES: Unremarkable. IMPRESSION: CHF. DATA REPOSITORY: RADIATION DOSE DELIVERED:
[2024-11-28] MEDS: methylPREDNISolone SUCC 125 MG VIAL IVP (15:37)
[2024-11-28 15:46] LABS: Abs Immature Grans 0.12 10^3/uL (0.0-0.06); Basophils % 0.3 %; Eosinophils % 0.3 %; HCT 39.7 % (36.0-46.0); HGB 12.3 g/dL (11.2-15.7); Immature Grans % 0.6 %; Lymphocytes % 10.5 %; MCH 23.2 pg (27.0-33.0); MCV 75 fL (80-95); MPV 9.4 fL (8.0-11.0); Monocytes % 5.5 %; Neutrophils % 82.8 %; Platelet Count 469 10^3/uL (130-400); RDW 18.5 % (11.7-14.6); RDW-SD 48.9 fL; WBC 19.07 10^3/uL (4.4-10.8)
[2024-11-28 15:50] LABS: Absolute Basophil Count 0.06 10^3/uL (0.0-0.2); Absolute Eosinophil Count 0.06 10^3/uL (0.0-0.7); Absolute Monocyte Count 1.05 10^3/uL (0.1-0.8); Absolute Neutrophil Count 15.79 10^3/uL (1.2-6.7)
[2024-11-28 16:15] LABS: Diff Comment RBC Morph Reviewed; Microcytosis 1+
[2024-11-28 16:27] LABS: ALT 50 U/L (14-59); AST 28 U/L (15-37); Albumin 2.8 g/dL (3.4-5.0); Alkaline Phosphatase 86 U/L (46-116); Anion Gap 4.5 mmol/L (3-11); BUN 17 mg/dL (7-18); Bilirubin, Total 1.8 mg/dL (0.2-1.0); CO2 41.5 mmol/L (21.0-32.0); CREATININE 0.9 mg/dL (0.55-1.02); Calcium 8.6 mg/dL (8.5-10.1); Chloride 89 mmol/L (98-107); Estimated GFR 69.64 (mL/min/1.73m2); Glucose 137 mg/dL (74-106); Magnesium 2.1 mg/dL (1.8-2.4); NT-proBNP 287 pg/mL (<300); Sodium 135 mmol/L (136-145); Total Protein 8.8 g/dL (6.4-8.2); Troponin I 5 ng/L (<or=51)
[2024-11-28] MEDS: AZITHROMYCIN 500 MG in Normal Saline 250 ML 250 MG IVPB (16:33)
[2024-11-28 16:39] LABS: Potassium 2.4 mmol/L (3.5-5.1)
[2024-11-28] MEDS: Furosemide 40 MG/4 ML VIAL IVP (17:20)
[2024-11-28] MEDS: Potassium Chloride 20 MEQ TABCR 40 MEQ PO (17:21)
[2024-11-28 17:23] LABS: Troponin I 5 ng/L (<or=51)
[2024-11-28] MEDS: POTASSIUM CHLORIDE 10 MEQ/100 ML BAG 100 MEQ IV_INF ×2 (18:01→19:31)
[2024-11-28] MEDS: cefTRIAXone 1 GM/50 ML BAG IVPB (18:02)
--- NOTE | 2024-11-28 21:21 | HPE_ITS ---
Date of service: 11/28/24 Time of Service: 21:21 Assessment and Plan Assessment and plan (1) COPD exacerbation: Status: Acute Assessment and plan: I think based on her history, the COPD is what tipped her over to hypoxic respiratory failure in the past 2 days. She is feeling better after IV solumedrol, continue prednisone back at higher dose Give alternative course of antibiotics ceftriaxone and azithromycin (2) Acute exacerbation of CHF (congestive heart failure): Status: Acute Assessment and plan: CXR and elements of exam suggest CHF, but she is more hypoxic than last week despite report of improvement in her fluid status since adding metolazone. Troponins not c/w ACS, get another EKG as well. Try adding spironolactone rather than metolazone given severe hypokalemia, BP is also above goal IV furosemide for now, but consider change to oral torsemide for more consistent absorption orally. Monitor on tele, Is/Os and daily weights. (3) Heart failure with preserved ejection fraction: Status: Acute Assessment and plan: as above she would also benefit from [facility] [place] [facility], consider before discharge (4) Acute on chronic hypoxic respiratory failure: Status: Acute Assessment and plan: Secondary to both issues above. Current oxygen requirement 5L, above baseline 3L. Goal O2 sat 88-91% (5) Hypokalemia: Status: Inactive Assessment and plan: worse than previously, related to recent metolozone use. As above MRA may be better option to augment furosemide in the future if BP tolerates. Repleated IV 40mEq and po, follow. replace Mg prn as well (6) Atrial fibrillation: Assessment and plan: Not anticoagulated chronically. not on rate control, exam/monitor c/w NSR, rate okay. (7) Morbid obesity: Status: Acute Assessment and plan: encourage to consider medical options, f/u PCP (8) Elevated liver enzymes: Status: Acute Assessment and plan: mild elavation, similar to previous. Follow as outpatient (9) Postmenopausal bleeding: Status: Acute Assessment and plan: continue progesterone therapy (10) DAVID (obstructive sleep apnea): Assessment and plan: home BiPAP, can use ours overnight tonight as doesn't have hers. (11) Left above-knee amputee: Status: Acute Assessment and plan: in september, has been with wound vac to manage opened wound (12) On deep vein thrombosis (DVT) prophylaxis: Status: Acute Assessment and plan: high risk with h/o DVT, enoxparin History of Present Illness History of Present Illness Chief Complaint: short of breath Narrative: 69 years old female patient with a past medical history significant for COPD, CHF with preserved ejection fraction, atrial fibrillation, acute on chronic respiratory failure, wheelchair bound with left AKA and BMI >60 who was sent from [facility] with O2 sat in the mid to low 80%s on her baseline 3liters NC. She states she has felt more short of breath for the past 2 days. She was exposed to a visitor with a respiratory infection last week. Her symptoms started Sunday 11/26 with runny nose, congestion, increased productive cough. She saw her PCP Dr. Murphy last week 11/20 and they thought she had too much fluid, but her oxygen was not this low. He added twice weekly metolazone 2.5mg, which did help her urinate more. She has noted decrease in her LE edema since then. She notes she sometimes urinates a lot with her furosemide and sometimes she does not. She was treated in the ED 11/19 for COPD exacerbation with ciprofloxacin 750mg daily for 5 days and a 10 day taper of prednisone. Since being here in the ED she got furosemide 40mg IV and steroids and antibiotics. She does feel a little better. Review of Systems All systems reviewed & are unremarkable except as noted in HPI and below PFSH All Active Problems (Updated 11/28/24 @ 22:03 by Brandan Hicks) Acute on chronic hypoxic respiratory failure (Acute) Acute exacerbation of CHF (congestive heart failure) (Acute) COPD exacerbation (Acute) Left above-knee amputee (Acute) Advanced care planning/counseling discussion (Acute) On deep vein thrombosis (DVT) prophylaxis (Acute) Elevated liver enzymes (Acute) Exertional shortness of breath (Acute) Heart failure with preserved ejection fraction (Acute) Wound dehiscence (Acute) Thickened endometrium (Acute) Postmenopausal bleeding (Acute) Venous stasis dermatitis (Acute) Bilateral carpal tunnel syndrome (Acute) Neuropathy of right hand (Acute) Neuropathy of left hand (Acute) Microcalcifications of the breast (Acute) Dermoid cyst of neck (Acute) Impingement of right ulnar nerve (Acute) Arthritis of right hand (Acute) Right carpal tunnel syndrome (Acute) Mixed conductive and sensorineural hearing loss of both ears (Acute) Grief at loss of child (Acute) Depression (Chronic) Varicose veins of lower extremity (Chronic) Low back pain with sciatica (Chronic 05/03/14) CT at [facility] L34 spinal stenosis Advance directive on file (Acute) Sensorineural hearing loss, bilateral (Chronic 08/29/13) Morbid obesity (Acute 04/05/13) Knee pain, bilateral (Chronic 07/23/14) s/p bilat TKR (left infected with mult surg and decreased mobility) Right ventricular dysfunction (Chronic) Recurrent UTI (Chronic) Urinary incontinence (Chronic) On Detrol Chronic headaches (Chronic) Recent Neurology consult for possible papilledema. Medical History Palliative care patient CHF (congestive heart failure) Atrial fibrillation COPD (chronic obstructive pulmonary disease) Hx pulmonary embolism (~2015) treated with lovenox x 3 months GERD (gastroesophageal reflux disease) had negative barium esophagram in 11/2022. Anxiety Lymphedema Hypothyroidism DAVID (obstructive sleep apnea) on BiPap Chronic respiratory failure with hypoxia and hypercapnia home BiPap Surgical History S/P AKA (above knee amputation) (~09/2024) Status post thyroidectomy History of fasciotomy Replacement of total knee joint Bilateral; left-became hwzdqpyz-roblgwm-wybxvatf surgeries Fasciotomy, Foot (~1996) LEFT History of Surgical Procedure a. Right and left toal knee replacements. b. Left knee has been repeatedly operated on with slava surgies, three replacements. Family History Mother Diabetes Personal history of malignant neoplasm LUNG Father Personal history of malignant neoplasm BRAIN Grandfather No problems noted. Grandfather No problems noted. Grandmother No problems noted. Grandmother No problems noted. Social History (Updated 11/28/24 @ 21:52 by Brandan Hicks) Smoking/Tobacco Use Status: Former Tobacco Use tobacco type: cigarettes Quit Date: 01/21/21 Second Hand Exposure: Yes Smoking risk assessment performed?: Yes Alcohol Intake: never Drug use: Never Substance use type: does not use Counseling given: No Housing: house Communication Needs: Hard of Hearing and Corrective Lenses Pets and animals: Yes Pets and animals: cat(s) Sexually active: Yes Current gender identity: female What is your relationship status?: never How often do you talk on the phone with friends or family?: decline to answer How often do you get together with friends or relatives?: decline to answer How often do you attend jew or mu-ism services?: decline to answer Do you belong to any clubs or organized social groups?: no Panel score (0-1 are the most socially isolated patients): 0 Seatbelt use: never Do you feel safe at home: Yes Do you feel safe in your relationship?: Yes Additional Social history: Lives in her own apartment in [facility] [place], uses electric scooter Meds Allergies and Home Medications Allergies Allergy/AdvReac Type Severity Reaction Status Date / Time hydrocodone Allergy Severe ITCHING Verified 11/28/24 13:37 morphine Allergy Mild PRURITIS Verified 11/28/24 13:37 oxycodone Allergy Mild ITCHING Verified 11/28/24 13:37 Home Medications ?Medication ?Instructions ?Recorded ?Confirmed ?Type ascorbic acid (vitamin C) 1,000 mg 1,000 mg PO DAILY 11/25/12 11/28/24 History tablet inhalational spacing device ##1 12/21/13 11/28/24 History (Aerochamber Mini) Bipap 5 l IN DIRECTED 07/23/14 11/28/24 History betamethasone, augmented 0.05 % 1 applic topical BID PRN allergic 06/20/21 11/28/24 Rx lotion reaction #60 mL levothyroxine 200 mcg tablet 200 mcg PO DAILY #90 tabs 02/15/24 11/28/24 Rx oxygen 3 l intranasal DIRECTED 04/02/24 11/28/24 History L. acidophilus,casei,rhamnosus 50 1 cap PO DAILY #4 caps 06/04/24 11/28/24 Rx billion cell capsule,delayed release (BiomePRO) nystatin 100,000 unit/gram topical 1 applic topical BID intertrigo 06/04/24 11/28/24 Rx powder #30 grams albuterol sulfate 90 mcg/actuation 1 - 2 puff inhalation Q6H PRN ##1 07/17/24 11/28/24 Rx aerosol inhaler fluticasone propionate 50 1 spray NS DAILY ##1 07/17/24 11/28/24 Rx mcg/actuation nasal spray,suspension (Flonase Allergy Relief) ipratropium 0.5 mg-albuterol 3 mg 3 ml inhalation QID COPD 07/17/24 11/28/24 Rx (2.5 mg base)/3 mL nebulization exacerbation/wheezing #180 mL soln potassium chloride 20 mEq 20 meq PO DAILY #90 tabs 07/17/24 11/28/24 Rx tablet,extended release(part/cryst) (Klor-Con M) furosemide 80 mg tablet 80 mg PO BID@0830,1600 #60 tabs 07/26/24 11/28/24 Rx pantoprazole 20 mg tablet,delayed 20 mg PO DAILY #90 tabs 07/26/24 11/28/24 Rx release sertraline 50 mg tablet 50 mg PO DAILY #90 tabs 07/26/24 11/28/24 Rx norethindrone acetate 5 mg tablet 10 mg (2 x 5 mg) PO BID #180 tabs 10/02/24 11/28/24 Rx gabapentin 300 mg capsule 600 mg PO TID PRN 10/11/24 11/28/24 History ipratropium 0.5 mg-albuterol 3 mg 3 ml inhalation Q6H PRN shortness 11/19/24 11/28/24 Rx (2.5 mg base)/3 mL nebulization of breath or wheezing #90 mL soln alclometasone 0.05 % topical cream 1 applic topical BID PRN itching 11/20/24 11/28/24 Rx #45 grams ketoconazole 2 % topical cream 1 applic topical BID PRN facial 11/20/24 11/28/24 Rx rash #60 grams metolazone 2.5 mg tablet 2.5 mg PO .q tues/frid #20 tabs 11/20/24 11/28/24 Rx Exam Narrative Exam Narrative: GEN: Alert and oriented x 4, pleasant and cooperative, gives linear history. No acute distress at rest. HEENT: Head atraumatic. Conjunctiva clear, no icterus. PEERL, EOMI. no rhinorrhea. MMM, OP benign. Neck is supple with no masses or lymphadenopathy, trachea midline LUNGS: Diffuse bilateral expiratory wheezing. I don't appreciate rales, mild increase effort with movement in bed. CV: RRR with no murmurs, gallops, or rubs. extremities warm, cap refill <2 sec. Could not appreciate JVP ABD: active bowel sounds, soft, nontender and nondistended. No masses. EXT: no cyanosis, clubbing. 1+ pitting edema in RLE. Left AKA, wound not evaluated. MSK: No joint redness or swelling NEURO: CN 2-12 grossly intact. Normal movement of 4 extremities. Normal speech and coordination. No tremor SKIN: No rashes or open wounds on skin other than left AKA surgical wound. PSYCH: normal mood and affect, nl thought process Results Labs 11/28/24 15:36 11/28/24 15:36 Labs: Laboratory Results - last 24 hr 11/28/24 11/28/24 11/28/24 15:36 16:27 17:15 WBC 19.07 H RBC 5.30 H Hgb 12.3 Hct 39.7 MCV 75 L MCH 23.2 L MCHC 31.0 L RDW 18.5 H Plt Count 469 H MPV 9.4 Immature Gran % 0.6 Neutrophils % 82.8 Lymphocytes % 10.5 Monocytes % 5.5 Eosinophils % 0.3 Basophils % 0.3 Nucleated RBC % 0.0 Absolute Neutrophils 15.79 H Absolute Lymphocytes 2.00 Absolute Monocytes 1.05 H Absolute Eosinophils 0.06 Absolute Basophils 0.06 RBC Morphology See Below Microcytosis 1+ Sodium 135 L Potassium 2.4 L* Chloride 89 L Carbon Dioxide 41.5 H Anion Gap 4.5 BUN 17 Creatinine 0.9 Est GFR (CKD-EPI 2020) 69.64 Glucose 137 H Calcium 8.6 Magnesium 2.1 Total Bilirubin 1.8 H AST 28 ALT 50 Alkaline Phosphatase 86 Troponin I 5 5 Cancelled NT-Pro-B Natriuret Pep 287 Total Protein 8.8 H Albumin 2.8 L Last Vital Signs Temp 36.8 C 11/28/24 13:27 Pulse 82 11/28/24 20:31 Resp 27 H 11/28/24 20:31 BP 139/65 11/28/24 20:31 Pulse Ox 95 11/28/24 20:31 Time Spent Time spent with Patient: >75 minutes Time was spent: preparing to see the patient(eg.review tests), obtaining and/or reviewing separately otained hiistory, ordering medications,tests, procedures, referring, communicating with other health home health care worker, indepentently interpreting results, counseling the patient and care coordination
--- NOTE | 2024-11-28 21:30 | RT.EKG_ITS ---
APPROVED REPORT Exam: Resting ECG Reason for Exam: chf Patient Location: E HR:79 bpm ECG Measurements Heart Rate 79 AXIS NE 171 P 71 QRSd 105 QRS 60 QT 434 T 59 QTc 499 Conclusion Sinus rhythm, rate 79 Borderline QTc prolongation, 499ms, increased from priors No STEMI
[2024-11-29] VITALS (16 sets, daily range): BP systolic 116–147; BP diastolic 59–86; PULSE 63–96; RESP 5–28; TEMP 36.3–37.1; O2SAT 90–94
[2024-11-29] MEDS: Norethindrone 5 MG TAB 10 MG PO ×3 (01:20→21:10)
[2024-11-29] MEDS: POTASSIUM CHLORIDE 20 MEQ/100 ML BAG 50 MEQ IV_INF (01:25)
[2024-11-29] MEDS: Albuterol/Ipratropium 3 ML UPD VIAL UPD ×4 (03:50→21:27)
[2024-11-29] MEDS: Levothyroxine 100 MCG TAB 200 MCG PO (06:07)
[2024-11-29 06:39] LABS: Abs Immature Grans 0.11 10^3/uL (0.0-0.06); Absolute Lymphocyte Count 0.94 10^3/uL (1.2-3.4); Absolute Monocyte Count 0.28 10^3/uL (0.1-0.8); Basophils % 0.1 %; HCT 36.3 % (36.0-46.0); HGB 11.2 g/dL (11.2-15.7); Immature Grans % 0.8 %; MCH 23.1 pg (27.0-33.0); MCHC 30.9 % (32.0-36.0); MCV 75 fL (80-95); MPV 10.1 fL (8.0-11.0); Monocytes % 2.1 %; Platelet Count 423 10^3/uL (130-400); RBC 4.84 10^6/uL (3.93-5.22); RDW 18.5 % (11.7-14.6); RDW-SD 49.5 fL; WBC 13.41 10^3/uL (4.4-10.8)
[2024-11-29 06:40] LABS: Absolute Basophil Count 0.01 10^3/uL (0.0-0.2); Absolute Neutrophil Count 12.07 10^3/uL (1.2-6.7)
[2024-11-29 06:56] LABS: Anion Gap 5.8 mmol/L (3-11); BUN 19 mg/dL (7-18); CO2 40.2 mmol/L (21.0-32.0); CREATININE 0.9 mg/dL (0.55-1.02); Calcium 8.3 mg/dL (8.5-10.1); Chloride 92 mmol/L (98-107); Estimated GFR 69.64 (mL/min/1.73m2); Glucose 175 mg/dL (74-106); Magnesium 2.2 mg/dL (1.8-2.4); Potassium 3.2 mmol/L (3.5-5.1); Sodium 138 mmol/L (136-145)
[2024-11-29] MEDS: Pantoprazole 20 MG TABCR PO (07:37)
[2024-11-29] MEDS: Lactobacillus Acidophilus CAP 1 CAP PO (08:04)
[2024-11-29] MEDS: Spironolactone 25 MG TAB PO ×2 (08:05→08:18)
[2024-11-29] MEDS: Sertraline 50 MG TAB PO (08:05)
[2024-11-29] MEDS: Enoxaparin 40 MG/0.4 ML SYR SC ×2 (08:05→21:10)
[2024-11-29] MEDS: predniSONE 20 MG TAB 40 MG PO (08:05)
[2024-11-29] MEDS: Potassium Chloride 20 MEQ TABCR 40 MEQ PO ×2 (08:05→21:10)
[2024-11-29] MEDS: Normal Saline Flush 10 ML SYR IVP ×2 (08:06→21:10)
[2024-11-29] MEDS: Furosemide 40 MG/4 ML VIAL IVP ×2 (08:06→15:45)
[2024-11-29] MEDS: Fluticasone NASAL SPRAY 16 GM BTL NS (08:16)
--- NOTE | 2024-11-29 11:13 | PDOC.CMIN ---
Date of service: 11/29/24 Time of Service: 11:14 Care Management Initial Assmt Initial Assessment Reason for Hospitalization: CHF exacerbation, COPD exacerbation, acute on chronic respiratory failure Functional Status/Living Situation Patient Presentation: Radha presented to the ED yesterday afternoon with c/o being sick for 2 weeks, with increasing work of breathing, low oxygen sats, and a cough productive of nonbloody sputum. She stated that she has not noted a fever, states that she has been using her nebulizer treatments every 4 hours without significant improvement. She has been recently started on a second diuretic, which she has been taking to good effect and has noted some decrease in her peripheral edema. However, she has not noted any improvement in her work of breathing with this medication change. She initially went to Urgent Care, where she was found to be hypoxic to 81% on her baseline of 3L, and was sent to the ED. Radha was lying in bed when ARGENIS met with her today. Her breath sounds were noted to sound congested, and she had quite the cough. Radha is known to from previous admissions, and was very pleasant when approached. Radha had just been in the ER on 11/19 and was discharged home on antibiotics and prednisone for pneumonia. She completed her medications. Radha went to Urgent Care at the prompting of her [facility]. although she stated that she was thinking she was going to head in anyway. Radha is s/p a left above the knee amputation on 09/19/24. She stated that she is handling this well, both physically and mentally, and in fact is discharged for PT. asked if she would like PT while inpatient, and she declined. Radha has been working with [facility] to complete her Choices for Care Application. Radha asked to contact [facility], because she has lost the phone # to her patient case coordinator. CM called, but [facility] closed early this date. Will try again tomorrow. [facility] of Residence: [facility] Resides with: Other (granddaughter Loc lives with her and helps support her with chores and shopping) Significant Other/Family: Local (son, Ashish, [place]. Radha' sister lives nearby and is a great support and they speak often) Natural Supports: family, [facility], [facility] Employment Status: Disabled Instrumental Activities of Daily Living (ADLs): Independent and Requires support with Groceries, Laundry and Transportation Activities/Hobbies/SocialSupport: Radha enjoys cooking and caring for her young granddaughter. She also likes spending time with her sister. Medications Medication Management: No Issues/Barriers identified Physical Functioning/Mobility Assistive Device: electric wheel chair Advance Directives Advance Directives: Do you have an Advance Directive: Y 04/11/24 07:49 AD On File at [facility]: Y 04/11/24 07:49 Date Asked 11/28/24 11/28/24 13:40 AD Date Reviewed 10/10/24 10/10/24 22:09 COLST On File at [facility] COLST Date Scanned Code Status Resuscitation Status Full Code Insurance Coverage/Financial Issues Insurance: AARP/[id number] [facility] Replacement Medicaid of [place] Care Team Visit Care Team Role Provider Type Alphonso Murphy MD Primary Care Provider [facility] STAFF PHYSICIAN Leyda Bautista MD Emergency Provider [facility] STAFF PHYSICIAN Brandan Hicks Admit Provider [facility] STAFF PHYSICIAN Attending Provider Discharge Potential Discharge Needs: PCP F/U Appt (ortho f/u) Anticipated Barriers to Discharge: None Identified Patient/Family Education Needs: Review discharge instructions, discuss Ask Me Three Plan: Radha will be discharged home once medically stable. She will continue with her HH RN. She will f/u with her PCP and ortho and continue per her plan of care. She will transport home via [facility] wheel chair van vs. the bus line, vs private vehicle. CM will continue to follow. Social Determinants of Health Screening Social Determinants of health last assessed in clinic: 11/29/24 Will the Patient Participate in the Screening?: Yes Do you worry about having a steady place to live?: no Problems where you live: no known problems In the past 12 months, have you had to go without electric, gas, oil or water in your home?: no 1. Within the past 12 months, we worried whether our food would run out before we got money to buy more.: Don't know/refused 2. Within the past 12 months, the food we bought just didn't last and we didn't have money to get more.: Don't know/refused Has lack of transportation kept you from medical appointments or from doing things needed for daily living?: no Has anyone in your life made you feel unsafe or unsupported?: no How hard is it for you to pay for the very basics like food, housing, medical care, and heating? Would you say it is:: Not hard at all Do you want help finding or keeping work or a job?: I do not need or want help If for any reason you need help with day-to-day activities such as bathing, preparing meals, shopping, managing finances, etc., do you get the help you need?: I get all the help I need How often do you feel lonely or isolated from those around you?: Never Do you speak a language other than Yakut at home?: No Does the patient want assistance with any of the above?: No PFSH All Active Problems (Updated 11/28/24 @ 22:03 by Brandan Hicks) Acute on chronic hypoxic respiratory failure (Acute) Acute exacerbation of CHF (congestive heart failure) (Acute) COPD exacerbation (Acute) Left above-knee amputee (Acute) On deep vein thrombosis (DVT) prophylaxis (Acute) Advanced care planning/counseling discussion (Acute) Elevated liver enzymes (Acute) Exertional shortness of breath (Acute) Heart failure with preserved ejection fraction (Acute) Wound dehiscence (Acute) Thickened endometrium (Acute) Postmenopausal bleeding (Acute) Venous stasis dermatitis (Acute) Chronic headaches (Chronic) Recent Neurology consult for possible papilledema. Urinary incontinence (Chronic) On Detrol Recurrent UTI (Chronic) Right ventricular dysfunction (Chronic) Knee pain, bilateral (Chronic 07/23/14) s/p bilat TKR (left infected with mult surg and decreased mobility) Morbid obesity (Acute 04/05/13) Sensorineural hearing loss, bilateral (Chronic 08/29/13) Advance directive on file (Acute) Low back pain with sciatica (Chronic 05/03/14) [place] [facility] [place] Varicose veins of lower extremity (Chronic) Depression (Chronic) Grief at loss of child (Acute) Mixed conductive and sensorineural hearing loss of both ears (Acute) Right carpal tunnel syndrome (Acute) Arthritis of right hand (Acute) Impingement of right ulnar nerve (Acute) Dermoid cyst of neck (Acute) Microcalcifications of the breast (Acute) Neuropathy of left hand (Acute) Neuropathy of right hand (Acute) Bilateral carpal tunnel syndrome (Acute) Medical History Palliative care patient CHF (congestive heart failure) Atrial fibrillation COPD (chronic obstructive pulmonary disease) Hx pulmonary embolism (~2015) treated with lovenox x 3 months GERD (gastroesophageal reflux disease) had negative barium esophagram in 11/2022. Anxiety Lymphedema Hypothyroidism DAVID (obstructive sleep apnea) on BiPap Chronic respiratory failure with hypoxia and hypercapnia home BiPap Surgical History S/P AKA (above knee amputation) (~09/2024) Status post thyroidectomy History of fasciotomy Replacement of total knee joint Bilateral; left-became miwantjt-toxkdfl-xocimqtv surgeries Fasciotomy, Foot (~1996) LEFT History of Surgical Procedure a. Right and left toal knee replacements. b. Left knee has been repeatedly operated on with slava surgies, three replacements. Family History Mother Diabetes Personal history of malignant neoplasm LUNG Father Personal history of malignant neoplasm BRAIN Grandfather No problems noted. Grandfather No problems noted. Grandmother No problems noted. Grandmother No problems noted. Social History (Updated 11/28/24 @ 21:52 by Brandan Hicks) Smoking/Tobacco Use Status: Former Tobacco Use tobacco type: cigarettes Quit Date: 01/21/21 Second Hand Exposure: Yes Smoking risk assessment performed?: Yes Alcohol Intake: never Drug use: Never Substance use type: does not use Counseling given: No Housing: apartment Communication Needs: Hard of Hearing and Corrective Lenses Pets and animals: Yes Pets and animals: cat(s) Sexually active: Yes Current gender identity: female What is your relationship status?: never How often do you talk on the phone with friends or family?: decline to answer How often do you get together with friends or relatives?: decline to answer How often do you attend islam or orthodoxy services?: decline to answer Do you belong to any clubs or organized social groups?: no Panel score (0-1 are the most socially isolated patients): 0 Seatbelt use: never Do you feel safe at home: Yes Do you feel safe in your relationship?: Yes Additional Social history: Lives in her own apartment in [facility], uses electric scooter Readmission Within the Past 30 Days Yes or No: No Anticipated HH Services Anticipated HH Services at Discharge [facility], RN Following Provider: Jeffrey.
--- NOTE | 2024-11-29 12:24 | PGE_ITS ---
Date of Service Date of service: 11/29/24 Time of Service: 12:24 Assessment and Plan Assessment and plan (1) COPD exacerbation: Status: Acute Assessment and plan: I think based on her history, the COPD is what tipped her over to hypoxic respiratory failure in the past 2 days. She is feeling better after IV solumedrol, continue prednisone back at higher dose Give alternative course of antibiotics ceftriaxone and azithromycin 11/29/24 PT does use 3LNC home oxygen and is back to her home baseline requirement. Pt on albuterol/duoneb/azithromycin/rocephin was on methyprednisolone and now on prednisone. Pt with some symptomatic improvement but PE still somewhat concerning (2) Acute exacerbation of CHF (congestive heart failure): Status: Acute Assessment and plan: CXR and elements of exam suggest CHF, but she is more hypoxic than last week despite report of improvement in her fluid status since adding metolazone. Troponins not c/w ACS, get another EKG as well. Try adding spironolactone rather than metolazone given severe hypokalemia, BP is also above goal IV furosemide for now, but consider change to oral torsemide for more consistent absorption orally. Monitor on tele, Is/Os and daily weights. 11/29/24 I/O's noted to be down appx 650 over last 24 hours (3) Heart failure with preserved ejection fraction: Status: Acute Assessment and plan: as above she would also benefit from [facility], consider before discharge (4) Acute on chronic hypoxic respiratory failure: Status: Acute Assessment and plan: Secondary to both issues above. Current oxygen requirement 5L, above baseline 3L. Goal O2 sat 88-91% (5) Hypokalemia: Status: Inactive Assessment and plan: worse than previously, related to recent metolozone use. As above MRA may be better option to augment furosemide in the future if BP tolerates. Repleated IV 40mEq and po, follow. replace Mg prn as well (6) Atrial fibrillation: Assessment and plan: Not anticoagulated chronically. not on rate control, exam/monitor c/w NSR, rate okay. 11/29/24 HR is currently 84 indicating rate control (7) Morbid obesity: Status: Acute Assessment and plan: encourage to consider medical options, f/u PCP (8) Elevated liver enzymes: Status: Acute Assessment and plan: mild elavation, similar to previous. Follow as outpatient (9) Postmenopausal bleeding: Status: Acute Assessment and plan: continue progesterone therapy (10) DAVID (obstructive sleep apnea): Assessment and plan: home BiPAP, can use ours overnight tonight as doesn't have hers. (11) Left above-knee amputee: Status: Acute Assessment and plan: in september, has been with wound vac to manage opened wound (12) On deep vein thrombosis (DVT) prophylaxis: Status: Acute Assessment and plan: high risk with h/o DVT, enoxparin Subjective Subjective Interval history since last seen: Pt seen and examined in her room. Pt complains of sob and FRY. POC d/w pt as well as bedside nurse during MDR. Exam Narrative Exam Narrative: GEN: Alert and oriented x 4, pleasant and cooperative, gives linear history. No acute distress at rest. HEENT: Head atraumatic. Conjunctiva clear, no icterus. PEERL, EOMI. no rhinorrhea. MMM, OP benign. Neck is supple with no masses or lymphadenopathy, trachea midline LUNGS: bilateral wheeze worse with expiration with coarse breath sound bilaterally. NO AMU CV: RRR with no murmurs, gallops, or rubs. extremities warm, cap refill <2 sec. Could not appreciate JVP ABD: active bowel sounds, soft, nontender and nondistended. No masses. EXT: no cyanosis, clubbing. 1+ pitting edema in RLE. Left AKA, wound not evaluated. MSK: No joint redness or swelling NEURO: CN 2-12 grossly intact. Normal movement of 4 extremities. Normal speech and coordination. No tremor SKIN: No rashes or open wounds on skin other than left AKA surgical wound. PSYCH: normal mood and affect, nl thought process Objective Last Vital Signs Temp 36.9 C 11/29/24 11:31 Pulse 84 11/29/24 11:31 Resp 28 H 11/29/24 11:31 BP 138/71 11/29/24 11:31 Pulse Ox 90 L 11/29/24 11:31 Laboratory Results - last 24 hr 11/28/24 11/28/24 11/28/24 15:36 16:27 17:15 WBC 19.07 H RBC 5.30 H Hgb 12.3 Hct 39.7 MCV 75 L MCH 23.2 L MCHC 31.0 L RDW 18.5 H Plt Count 469 H MPV 9.4 Immature Gran % 0.6 Neutrophils % 82.8 Lymphocytes % 10.5 Monocytes % 5.5 Eosinophils % 0.3 Basophils % 0.3 Nucleated RBC % 0.0 Absolute Neutrophils 15.79 H Absolute Lymphocytes 2.00 Absolute Monocytes 1.05 H Absolute Eosinophils 0.06 Absolute Basophils 0.06 RBC Morphology See Below Microcytosis 1+ Sodium 135 L Potassium 2.4 L* Chloride 89 L Carbon Dioxide 41.5 H Anion Gap 4.5 BUN 17 Creatinine 0.9 Est GFR (CKD-EPI 2020) 69.64 Glucose 137 H Calcium 8.6 Magnesium 2.1 Total Bilirubin 1.8 H AST 28 ALT 50 Alkaline Phosphatase 86 Troponin I 5 5 Cancelled NT-Pro-B Natriuret Pep 287 Total Protein 8.8 H Albumin 2.8 L 11/29/24 06:00 WBC 13.41 H RBC 4.84 Hgb 11.2 Hct 36.3 MCV 75 L MCH 23.1 L MCHC 30.9 L RDW 18.5 H Plt Count 423 H MPV 10.1 Immature Gran % 0.8 Neutrophils % 90.0 Lymphocytes % 7.0 Monocytes % 2.1 Eosinophils % 0.0 Basophils % 0.1 Nucleated RBC % 0.0 Absolute Neutrophils 12.07 H Absolute Lymphocytes 0.94 L Absolute Monocytes 0.28 Absolute Eosinophils 0.00 Absolute Basophils 0.01 RBC Morphology Microcytosis Sodium 138 Potassium 3.2 L Chloride 92 L Carbon Dioxide 40.2 H Anion Gap 5.8 BUN 19 H Creatinine 0.9 Est GFR (CKD-EPI 2020) 69.64 Glucose 175 H Calcium 8.3 L Magnesium 2.2 Total Bilirubin AST ALT Alkaline Phosphatase Troponin I NT-Pro-B Natriuret Pep Total Protein Albumin Time Spent with Patient Time Spent with Patient: 35-49 minutes Time was spent: preparing to see the patient(eg.review tests), obtaining and/or reviewing separately otained hiistory, ordering medications,tests, procedures, referring, communicating with other health healthcare specialist, indepentently interpreting results, counseling the patient and care coordination
[2024-11-29] MEDS: Albuterol 2.5 MG/3 ML INH SOLN VIAL UPD ×2 (12:31→19:31)
--- NOTE | 2024-11-29 13:01 | NUR.NOTE ---
patient AxOx4 this shift, denies pain, wound vac to 125mmHg at this time, due to be changed 11/30. PAtient has been offered bed bath multiple times but has opted to rest/nap instead at these times. Patient had episode of SOB and wheezing this afternoon, Olivia JOHNSON paged and asked fro prn updraft. Patient with improved RR and less wheezing at this time, reports she feels better after treatment, denies needs. Moreira to gravity, output 550cc this AM post IV lasix. Patient with bed low/locked, bed alarm on, call novak in reach, requesting to nap. Nursing Note:
--- NOTE | 2024-11-29 15:05 | PHA.REVIEW2 ---
Pharmacy Admission Review Admission Clinical Review Admission Pharmacy Review: Acute on chronic hypoxic respiratory failure (Acute) Acute exacerbation of CHF (congestive heart failure) (Acute) COPD exacerbation (Acute) Left above-knee amputee (Acute) On deep vein thrombosis (DVT) prophylaxis (Acute) Elevated liver enzymes (Acute) Heart failure with preserved ejection fraction (Acute) Postmenopausal bleeding (Acute) Morbid obesity (Acute 04/05/13) hydrocodone Allergy (Severe, Verified 11/28/24 13:37) ITCHING morphine Allergy (Mild, Verified 11/28/24 13:37) PRURITIS oxycodone Allergy (Mild, Verified 11/28/24 13:37) ITCHING Resuscitation Status Full Code Height 5 ft 3.5 in Weight 163.293 kg Pharmacy Admission Review Renal Dosing Renal Dosing: BUN 19 mg/dL (7-18) H 11/29/24 06:00 Creatinine 0.9 mg/dL (0.55-1.02) 11/29/24 06:00 Medications needing adjustments: Reviewed (CrCl 82.83 mL/min) List of meds needing interventions: Current medications are okay Anticoagulation Anticoagulation: Hgb 11.2 g/dL (11.2-15.7) 11/29/24 06:00 Hct 36.3 % (36.0-46.0) 11/29/24 06:00 Plt Count 423 10^3/uL (130-400) H 11/29/24 06:00 Creatinine 0.9 mg/dL (0.55-1.02) 11/29/24 06:00 DVT Prophylaxis: Reviewed Medications: Enoxaparin (40mg BID due to BMI of 62) Relevant Labs Relevant Labs: Sodium 138 mmol/L (136-145) 11/29/24 06:00 Potassium 3.2 mmol/L (3.5-5.1) L 11/29/24 06:00 Chloride 92 mmol/L (98-107) L 11/29/24 06:00 Magnesium 2.2 mg/dL (1.8-2.4) 11/29/24 06:00 Electrolytes, C-Reactive P, ESR: Reviewed (K 3.2 - increased from 2.4, has order for 4mEq PO BID) Cardiac Review Cardiac Review: Troponin I Cancelled 11/28/24 17:15 NT-Pro-B Natriuret Pep 287 pg/mL (<300) 11/28/24 15:36 BP, HR, EF%: Reviewed (HR and BP WNL, oxygen flow rate 3 - baseline per respiratory therapy) List meds needing interventions: Has order for furosemide 40mg IVP BID and spironolactone 25mg daily QTc Review QTc: Reviewed (499 from 11/28/24) IV to PO Switch IV Medications: Reviewed (azithromycin, ceftriaxone, furosemide) Home Meds Home Med List reviewed: Intervened Relevent Home Meds Not ordered & why?: alcometasone cream (PRN), ascorbic acid, ketoconazole cream (PRN), metolazone (on hold per H+P due to hypokalemia) Med list has furosemide dose as 80mg BID, current order is for 40mg BID. Provider aware. Changed BiomPro to lactobacillus (formulary) Changed betamethasone lotion to patients own order - called nurse to let them know it will need to be brought in if patient wants it Current Meds Current Medication Order Review: Intervened Comments: Changed IV ED access order Pharmacy Antibiotic Review Relevant Labs: WBC 13.41 10^3/uL (4.4-10.8) H 11/29/24 06:00 Temperature 36.9 C Temperature 36.7 C Temperature 36.3 C Pharmacy Antibiotic Activity: C/S review and Reviewed, no change Comments: Patient is on azithromycin and ceftriaxone, day 1, for COPD exacerbation. WBC decreased from 19.07
[2024-11-29] MEDS: AZITHROMYCIN 500 MG in Normal Saline 250 ML 250 MG IVPB (16:20)
[2024-11-29] MEDS: cefTRIAXone 1 GM/50 ML BAG IVPB (18:11)
[2024-11-29] MEDS: Nystatin POWDER 15 GM JAR TP (21:11)
[2024-11-30] VITALS (12 sets, daily range): BP systolic 107–131; BP diastolic 60–70; PULSE 60–93; RESP 3–22; TEMP 36.5–37.4; O2SAT 92–94
[2024-11-30] MEDS: Albuterol/Ipratropium 3 ML UPD VIAL UPD ×4 (04:19→22:12)
[2024-11-30] MEDS: Levothyroxine 100 MCG TAB 200 MCG PO (06:21)
[2024-11-30] MEDS: Pantoprazole 20 MG TABCR PO (06:21)
--- NOTE | 2024-11-30 08:16 | PDOC.CMPRO ---
Date of service: 11/30/24 Time of Service: 08:16 Care Management Progress Note Progress Note Text Progress Note Text: Radha was lying in bed, watching TV, when CM met with her today. She was pleasant with CM, as always. Radha stated that she had a really good nap this afternoon, and is feeling much better than yesterday. She is hoping to be discharged home tomorrow. Discharge Potential Discharge Needs: PT Evaluation and PCP F/U Appt Anticipated Barriers to Discharge: None Identified Patient/Family Education Needs: Review discharge instructions, discuss Ask Me Three Transportation: RCT RCT Transportation: Wheel chair van Plan: Anticipate that Radha will discharge home with continued SN services through [facility]. She will likely transport home in a private vehicle. She will follow up with her PCP and with her orthopedic surgeon. CM will continue to follow. Social Determinants of Health Screening Social Determinants of health last assessed in clinic: 11/30/24 Will the Patient Participate in the Screening?: Yes Do you worry about having a steady place to live?: no Problems where you live: no known problems In the past 12 months, have you had to go without electric, gas, oil or water in your home?: no 1. Within the past 12 months, we worried whether our food would run out before we got money to buy more.: Don't know/refused 2. Within the past 12 months, the food we bought just didn't last and we didn't have money to get more.: Don't know/refused Has lack of transportation kept you from medical appointments or from doing things needed for daily living?: no Has anyone in your life made you feel unsafe or unsupported?: no How hard is it for you to pay for the very basics like food, housing, medical care, and heating? Would you say it is:: Not hard at all Do you want help finding or keeping work or a job?: I do not need or want help If for any reason you need help with day-to-day activities such as bathing, preparing meals, shopping, managing finances, etc., do you get the help you need?: I get all the help I need How often do you feel lonely or isolated from those around you?: Never Do you speak a language other than [place] at home?: No Does the patient want assistance with any of the above?: No
[2024-11-30] MEDS: predniSONE 20 MG TAB 40 MG PO (09:16)
[2024-11-30] MEDS: Enoxaparin 40 MG/0.4 ML SYR SC ×2 (09:16→19:42)
[2024-11-30] MEDS: Norethindrone 5 MG TAB 10 MG PO ×2 (09:16→19:42)
[2024-11-30] MEDS: Sertraline 50 MG TAB PO (09:17)
[2024-11-30] MEDS: Spironolactone 25 MG TAB PO (09:17)
[2024-11-30] MEDS: Lactobacillus Acidophilus CAP 1 CAP PO (09:17)
[2024-11-30] MEDS: Furosemide 40 MG/4 ML VIAL IVP ×2 (09:17→16:25)
[2024-11-30] MEDS: Normal Saline Flush 10 ML SYR IVP ×2 (09:19→19:43)
[2024-11-30] MEDS: Fluticasone NASAL SPRAY 16 GM BTL NS (09:19)
--- NOTE | 2024-11-30 10:00 | NUR.NOTE ---
pt AxOx4, VSS, on baseline 3L nc, non productive cough, lung sounds improved from prior shift, no wheezing noted this AM, cough sounds less congested, less FRY and at rest, pt reports she feels her breathing feels improved today as well she was able to tolerate more activity, wound vac due to be changed today, on 40mg IV lasix BID, pt had large BM, tolerating diet, up in wheelchair, call novak in reach, denies needs. Nursing Note:
[2024-11-30] MEDS: Nystatin POWDER 15 GM JAR TP ×2 (11:00→20:39)
--- NOTE | 2024-11-30 11:18 | W.PM.PROGNOT ---
Date of Service Date of service: 11/30/24 Time of Service: 11:18 Assessment and Plan Assessment and plan (1) COPD exacerbation: Status: Acute Assessment and plan: I think based on her history, the COPD is what tipped her over to hypoxic respiratory failure in the past 2 days. She is feeling better after IV solumedrol, continue prednisone back at higher dose Give alternative course of antibiotics ceftriaxone and azithromycin 11/29/24 PT does use 3LNC home oxygen and is back to her home baseline requirement. Pt on albuterol/duoneb/azithromycin/rocephin was on methyprednisolone and now on prednisone. Pt with some symptomatic improvement but PE still somewhat concerning 11/30/24 PT continues to improve but is very fragile. Pt would like to stay another 1-2 days which would seem appropriate in order to maximize her chance of staying out of the hospital for an extended period of time (2) Acute exacerbation of CHF (congestive heart failure): Status: Acute Assessment and plan: CXR and elements of exam suggest CHF, but she is more hypoxic than last week despite report of improvement in her fluid status since adding metolazone. Troponins not c/w ACS, get another EKG as well. Try adding spironolactone rather than metolazone given severe hypokalemia, BP is also above goal IV furosemide for now, but consider change to oral torsemide for more consistent absorption orally. Monitor on tele, Is/Os and daily weights. 11/29/24 I/O's noted to be down appx 650 over last 24 hours 11/30/24 pt is on lasix 40ivbid/aldactone 25 daily will add semaglutide. Will add (3) Heart failure with preserved ejection fraction: Status: Acute Assessment and plan: as above she would also benefit from SGLT2i half-way, consider before discharge echo 06/04/24 APPROVED REPORT EXAM: Limited 2D Echocardiogram with contrast Patient Location: In-Patient Radio Communication Coordinator: Alex Browne RDCS (AE) Indications: Function Other Information Study Quality: Technically Limited. Technically limited study due to body habitus, inability to position patient. Conclusion Technically very suboptimal study Left ventricle appears grossly normal in size and systolic function. Segmental wall motion cannot be accurately assessed Wall motion Left Ventricle The left ventricle is normal size. There is normal left ventricular wall thickness. (4) Acute on chronic hypoxic respiratory failure: Status: Acute Assessment and plan: Secondary to both issues above. Current oxygen requirement 5L, above baseline 3L. Goal O2 sat 88-91% (5) Hypokalemia: Status: Inactive Assessment and plan: worse than previously, related to recent metolozone use. As above MRA may be better option to augment furosemide in the future if BP tolerates. Repleated IV 40mEq and po, follow. replace Mg prn as well (6) Atrial fibrillation: Assessment and plan: Not anticoagulated chronically. not on rate control, exam/monitor c/w NSR, rate okay. 11/29/24 HR is currently 84 indicating rate control (7) Morbid obesity: Status: Acute Assessment and plan: encourage to consider medical options, f/u PCP 11/30/24 add ozempic (8) Elevated liver enzymes: Status: Acute Assessment and plan: mild elavation, similar to previous. Follow as outpatient (9) Postmenopausal bleeding: Status: Acute Assessment and plan: continue progesterone therapy (10) DAVID (obstructive sleep apnea): Assessment and plan: home BiPAP, can use ours overnight tonight as doesn't have hers. (11) Left above-knee amputee: Status: Acute Assessment and plan: in september, has been with wound vac to manage opened wound (12) On deep vein thrombosis (DVT) prophylaxis: Status: Acute Assessment and plan: high risk with h/o DVT, enoxparin Subjective Subjective Interval history since last seen: Pt seen and examined in her room this afternoon. Pt getting wound vac exchange. POC d/w pt as well as with bedside nurse during MDR Exam Narrative Exam Narrative: GEN: Alert and oriented x 4, pleasant and cooperative, gives linear history. No acute distress at rest. HEENT: Head atraumatic. Conjunctiva clear, no icterus. PEERL, EOMI. no rhinorrhea. MMM, OP benign. Neck is supple with no masses or lymphadenopathy, trachea midline LUNGS: bilateral wheeze worse with expiration with coarse breath sound bilaterally. NO AMU CV: RRR with no murmurs, gallops, or rubs. extremities warm, cap refill <2 sec. Could not appreciate JVP ABD: active bowel sounds, soft, nontender and nondistended. No masses. EXT: no cyanosis, clubbing. 1+ pitting edema in RLE. Left AKA, wound not evaluated. MSK: No joint redness or swelling NEURO: CN 2-12 grossly intact. Normal movement of 4 extremities. Normal speech and coordination. No tremor SKIN: No rashes or open wounds on skin other than left AKA surgical wound. PSYCH: normal mood and affect, nl thought process Objective Last Vital Signs Temp 36.5 C 11/30/24 07:20 Pulse 76 11/30/24 07:20 Resp 16 11/30/24 10:10 BP 123/60 11/30/24 07:20 Pulse Ox 92 11/30/24 07:20 Time Spent with Patient Time Spent with Patient: 25-34 minutes Time was spent: preparing to see the patient(eg.review tests), obtaining and/or reviewing separately otained hiistory, ordering medications,tests, procedures, referring, communicating with other health manager long term care, indepentently interpreting results, counseling the patient and care coordination
[2024-11-30] MEDS: AZITHROMYCIN 500 MG in Normal Saline 250 ML 250 MG IVPB (16:26)
[2024-11-30] MEDS: cefTRIAXone 1 GM/50 ML BAG IVPB (17:46)
[2024-11-30] MEDS: Albuterol 2.5 MG/3 ML INH SOLN VIAL UPD (19:17)
[2024-12-01] VITALS (13 sets, daily range): BP systolic 108–136; BP diastolic 55–77; PULSE 77–87; RESP 3–22; TEMP 36.6–37.3; O2SAT 88–96
[2024-12-01] MEDS: Albuterol/Ipratropium 3 ML UPD VIAL UPD ×4 (04:06→22:08)
[2024-12-01] MEDS: Levothyroxine 100 MCG TAB 200 MCG PO (05:34)
[2024-12-01 06:57] LABS: Abs Immature Grans 0.12 10^3/uL (0.0-0.06); Absolute Basophil Count 0.03 10^3/uL (0.0-0.2); Absolute Eosinophil Count 0.06 10^3/uL (0.0-0.7); Absolute Lymphocyte Count 2.37 10^3/uL (1.2-3.4); Absolute Monocyte Count 1.57 10^3/uL (0.1-0.8); Absolute Neutrophil Count 11.05 10^3/uL (1.2-6.7); Basophils % 0.2 %; Eosinophils % 0.4 %; HCT 34.4 % (36.0-46.0); HGB 10.3 g/dL (11.2-15.7); Immature Grans % 0.8 %; Lymphocytes % 15.6 %; MCH 22.8 pg (27.0-33.0); MCHC 29.9 % (32.0-36.0); MCV 76 fL (80-95); Monocytes % 10.3 %; Neutrophils % 72.7 %; Platelet Count 415 10^3/uL (130-400); RBC 4.52 10^6/uL (3.93-5.22); RDW 18.6 % (11.7-14.6); RDW-SD 51.1 fL
[2024-12-01 07:10] LABS: ALT 46 U/L (14-59); AST 26 U/L (15-37); Albumin 2.3 g/dL (3.4-5.0); Alkaline Phosphatase 75 U/L (46-116); BUN 17 mg/dL (7-18); Bilirubin, Total 0.5 mg/dL (0.2-1.0); CREATININE 0.7 mg/dL (0.55-1.02); Calcium 8.4 mg/dL (8.5-10.1); Chloride 95 mmol/L (98-107); Estimated GFR 94.15 (mL/min/1.73m2); Glucose 131 mg/dL (74-106); Potassium 3.5 mmol/L (3.5-5.1); Sodium 137 mmol/L (136-145)
[2024-12-01 08:00] LABS: Anisocytosis 1+; Diff Comment Agrees w/ Instrument; Microcytosis 1+
[2024-12-01] MEDS: Furosemide 40 MG/4 ML VIAL IVP ×2 (09:02→16:11)
[2024-12-01] MEDS: Pantoprazole 20 MG TABCR PO (09:02)
[2024-12-01] MEDS: predniSONE 20 MG TAB 40 MG PO (09:02)
[2024-12-01] MEDS: Lactobacillus Acidophilus CAP 1 CAP PO (09:02)
[2024-12-01] MEDS: Empaglifozin 10 MG TAB PO (09:02)
[2024-12-01] MEDS: Sertraline 50 MG TAB PO (09:02)
[2024-12-01] MEDS: Enoxaparin 40 MG/0.4 ML SYR SC ×2 (09:03→20:09)
[2024-12-01] MEDS: Normal Saline Flush 10 ML SYR IVP ×3 (09:03→20:06)
[2024-12-01] MEDS: Norethindrone 5 MG TAB 10 MG PO ×2 (09:03→20:05)
[2024-12-01] MEDS: Spironolactone 25 MG TAB PO (09:03)
--- NOTE | 2024-12-01 13:38 | PGE_ITS ---
Date of Service Date of service: 12/01/24 Time of Service: 13:39 Assessment and Plan Assessment and plan (1) COPD exacerbation: Status: Acute Assessment and plan: I think based on her history, the COPD is what tipped her over to hypoxic respiratory failure in the past 2 days. She is feeling better after IV solumedrol, continue prednisone back at higher dose Give alternative course of antibiotics ceftriaxone and azithromycin 11/29/24 PT does use 3LNC home oxygen and is back to her home baseline requirement. Pt on albuterol/duoneb/azithromycin/rocephin was on methyprednisolone and now on prednisone. Pt with some symptomatic improvement but PE still somewhat concerning 11/30/24 PT continues to improve but is very fragile. Pt would like to stay another 1-2 days which would seem appropriate in order to maximize her chance of staying out of the hospital for an extended period of time 12/01/[address] a consult to PT for evaluation of ADL's. Pt is at baseline in reg ards to her oxygen dependance (2) Acute exacerbation of CHF (congestive heart failure): Status: Acute Assessment and plan: CXR and elements of exam suggest CHF, but she is more hypoxic than last week despite report of improvement in her fluid status since adding metolazone. Troponins not c/w ACS, get another EKG as well. Try adding spironolactone rather than metolazone given severe hypokalemia, BP is also above goal IV furosemide for now, but consider change to oral torsemide for more consistent absorption orally. Monitor on tele, Is/Os and daily weights. 11/29/24 I/O's noted to be down appx 650 over last 24 hours 11/30/24 pt is on lasix 40ivbid/aldactone 25 daily will add semaglutide at discharge 12/01/24 Pt does NOT have systolic heart failure per latest echo. See attached below (3) Heart failure with preserved ejection fraction: Status: Acute Assessment and plan: as above she would also benefit from SGLT2i engraved roller inspector, consider before discharge echo 06/04/24 APPROVED REPORT EXAM: Limited 2D Echocardiogram with contrast Patient Location: In-Patient Orthodontist Small Business Owner: Alex Pavan, RDCS (AE) Indications: Function Other Information Study Quality: Technically Limited. Technically limited study due to body habitus, inability to position patient. Conclusion Technically very suboptimal study Left ventricle appears grossly normal in size and systolic function. Segmental wall motion cannot be accurately assessed Wall motion Left Ventricle The left ventricle is normal size. There is normal left ventricular wall thickn ess. (4) Acute on chronic hypoxic respiratory failure: Status: Acute Assessment and plan: Secondary to both issues above. Current oxygen requirement 5L, above baseline 3L. Goal O2 sat 88-91% (5) Hypokalemia: Status: Inactive Assessment and plan: worse than previously, related to recent metolozone use. As above MRA may be better option to augment furosemide in the future if BP tolerates. Repleated IV 40mEq and po, follow. replace Mg prn as well (6) Atrial fibrillation: Assessment and plan: Not anticoagulated chronically. not on rate control, exam/monitor c/w NSR, rate okay. 11/29/24 HR is currently 84 indicating rate control (7) Morbid obesity: Status: Acute Assessment and plan: encourage to consider medical options, f/u PCP 11/30/24 add ozempic (8) Elevated liver enzymes: Status: Acute Assessment and plan: mild elavation, similar to previous. Follow as outpatient (9) Postmenopausal bleeding: Status: Acute Assessment and plan: continue progesterone therapy (10) DAVID (obstructive sleep apnea): Assessment and plan: home BiPAP, can use ours overnight tonight as doesn't have hers. (11) Left above-knee amputee: Status: Acute Assessment and plan: in september, has been with wound vac to manage opened wound (12) On deep vein thrombosis (DVT) prophylaxis: Status: Acute Assessment and plan: high risk with h/o DVT, enoxparin Subjective Subjective Interval history since last seen: pt seen and examined in her room this am. No new complaints. Exam Narrative Exam Narrative: GEN: Alert and oriented x 4, pleasant and cooperative, gives linear history. No acute distress at rest. HEENT: Head atraumatic. Conjunctiva clear, no icterus. PEERL, EOMI. no rhinorrhea. MMM, OP benign. Neck is supple with no masses or lymphadenopathy, trachea midline LUNGS: bilateral wheeze worse with expiration with coarse breath sound bilaterally. NO AMU CV: RRR with no murmurs, gallops, or rubs. extremities warm, cap refill <2 sec. Could not appreciate JVP ABD: active bowel sounds, soft, nontender and nondistended. No masses. EXT: no cyanosis, clubbing. 1+ pitting edema in RLE. Left AKA, wound not evaluated. MSK: No joint redness or swelling NEURO: CN 2-12 grossly intact. Normal movement of 4 extremities. Normal speech and coordination. No tremor SKIN: No rashes or open wounds on skin other than left AKA surgical wound. PSYCH: normal mood and affect, nl thought process Objective Last Vital Signs Temp 36.7 C 12/01/24 08:37 Pulse 86 12/01/24 09:30 Resp 20 12/01/24 09:23 BP 136/67 12/01/24 08:37 Pulse Ox 94 12/01/24 09:23 Laboratory Results - last 24 hr 12/01/24 06:30 WBC 15.20 H RBC 4.52 Hgb 10.3 L Hct 34.4 L MCV 76 L MCH 22.8 L MCHC 29.9 L RDW 18.6 H Plt Count 415 H MPV 10.0 Immature Gran % 0.8 Neutrophils % 72.7 Lymphocytes % 15.6 Monocytes % 10.3 Eosinophils % 0.4 Basophils % 0.2 Nucleated RBC % 0.0 Absolute Neutrophils 11.05 H Absolute Lymphocytes 2.37 Absolute Monocytes 1.57 H Absolute Eosinophils 0.06 Absolute Basophils 0.03 RBC Morphology See Below Anisocytosis 1+ Microcytosis 1+ Sodium 137 Potassium 3.5 Chloride 95 L Carbon Dioxide 40.0 H Anion Gap 2.0 L BUN 17 Creatinine 0.7 Est GFR (CKD-EPI 2020) 94.15 Glucose 131 H Calcium 8.4 L Total Bilirubin 0.5 AST 26 ALT 46 Alkaline Phosphatase 75 Total Protein 7.0 Albumin 2.3 L Time Spent with Patient Time Spent with Patient: 25-34 minutes Time was spent: preparing to see the patient(eg.review tests), obtaining and/or reviewing separately otained hiistory, ordering medications,tests, procedures, referring, communicating with other health rn progressive care unit, indepentently interpreting results, counseling the patient and care coordination
--- NOTE | 2024-12-01 14:22 | PT.INIE ---
Date of service: 12/01/24 Time of Service: 14:00 PT Notes Visit Reasons: CHF, COPD, hypokalemia, hypoxia Inpatient Physical Therapy Evaluation Date: December 01, 2024 Referring Doctor: Juan Cesar PT Orders: PT CONSULT Precautions: Patient Profile/Admitting Diagnosis: Radha is a 69 year old female admitted to hospital on 11/28/24 with acute exacerbation of CHF (congestive heart failure), COPD exacerbation, acute on chronic hypoxic respiratory failure PMHX: (Updated 11/28/24 @ 22:03 by Brandan Hicks) Acute on chronic hypoxic respiratory failure (Acute) Acute exacerbation of CHF (congestive heart failure) (Acute) COPD exacerbation (Acute) Left above-knee amputee (Acute) Advanced care planning/counseling discussion (Acute) On deep vein thrombosis (DVT) prophylaxis (Acute) Elevated liver enzymes (Acute) Exertional shortness of breath (Acute) Heart failure with preserved ejection fraction (Acute) Wound dehiscence (Acute) Thickened endometrium (Acute) Postmenopausal bleeding (Acute) Venous stasis dermatitis (Acute) Bilateral carpal tunnel syndrome (Acute) Neuropathy of right hand (Acute) Neuropathy of left hand (Acute) Microcalcifications of the breast (Acute) Dermoid cyst of neck (Acute) Impingement of right ulnar nerve (Acute) Arthritis of right hand (Acute) Right carpal tunnel syndrome (Acute) Mixed conductive and sensorineural hearing loss of both ears (Acute) Grief at loss of child (Acute) Depression (Chronic) Varicose veins of lower extremity (Chronic) Low back pain with sciatica (Chronic 05/03/14) CT at [facility] [place] L34 [place] stenosis Advance directive on file (Acute) Sensorineural hearing loss, bilateral (Chronic 08/29/13) Morbid obesity (Acute 04/05/13) Knee pain, bilateral (Chronic 07/23/14) s/p bilat TKR (left infected with mult surg and decreased mobility) Right ventricular dysfunction (Chronic) Recurrent UTI (Chronic) Urinary incontinence (Chronic) On DetrolChronic headaches (Chronic) Recent Neurology consult for possible papilledema. Medical History Palliative care patient CHF (congestive heart failure) Atrial fibrillation COPD (chronic obstructive pulmonary disease) Hx pulmonary embolism (~2015) treated with lovenox x 3 monthsGERD (gastroesophageal reflux disease) had negative barium esophagram in 11/2022.Anxiety Lymphedema Hypothyroidism DAVID (obstructive sleep apnea) on BiPapChronic respiratory failure with hypoxia and hypercapnia home BiPap Surgical History S/P AKA (above knee amputation) (~09/2024) Status post thyroidectomy History of fasciotomy Replacement of total knee joint Bilateral; left-became vnagwvuo-jjpdlrn-mitoipkd surgeriesFasciotomy, Foot (~1996) LEFTHistory of Surgical Procedure a. Right and left total knee replacements. b. Left knee has been repeatedly operated on with nine surgeries, three replacements. Social History/Home Situation: Lives with her significant other ( whom works) in [facility] with ramp to enter. She is independent with ADL, iADLs, cooking utilizing air fryer and instapot, she takes [employer] for transportation or she will just go in her motorized chair to the store or appointments. Equipment Owned/DME: motorized wheelchair, commode, BiPAP, Oxygen, bed with rails Subjective: Pt reports she is feeling better today then she has the past few days. She reports she has a good set up at home like a triangle she can go from her bed to the wheelchair or the commode on either side. Is hopeful to go home tomorrow. Objective: General Observation: pt presented lying in bed with oxygen via nasal cannula and schultz catheter in place. Mental Status: A+ O x 4, Pain: No complaints of pain at time of PT consult Vital Signs: monitored by nursing ROM: Right Upper Extremity: shoulder flexion and abduction 100 degrees, elbow wrist and hand WNL Left Upper Extremity: shoulder abduction and flexion 95 degrees, elbow and wrist and hand WNL Right Lower Extremity: WFL except limited hamstring length, DF to neutral Left Lower Extremity:above knee amputation. Strength: Right Upper Extremity:Demonstrates good gravity resisted strength R UE Left Upper Extremity: Demonstrates good gravity resisted strength L UE Right Lower Extremity: Hip flexion: 4-5; hip abduction: 3/5; hip extension: 3- /5; knee extension: 3 /5; knee flexion: 3 /5 ankle DF: >/= to 3 /5 ; ankle PF: >/= to 3 /5 Left Lower Extremity: above knee amputation Sensation: intact BUE , BLE diminished to light touch significant lymphedema present Bed Mobility/Transfers: supine with HOB>30degrees to sit : Independent Sit to supine with HOB >30 degrees: Independent bed to chair: 3/4 stand pivot toward right SBA pivoting on R LE utilizing armrest for support as well as bed Gait: NA Patient is non-ambulatory at baseline utilizes motorized wheelchair for locomotion and has done so for years. She is able to side step for transfers only Wheelchair Management: Independent with motorized chair including appropriate speed and turning to avoid obstacles Balance: Static Sitting:Good Dynamic Sitting: Good Static Standing: Fair Dynamic Standing: poor + Special Tests: Mobility Limitations Standardized Measure [facility] AM-PAC 6 clicks Basic Mobility Inpatient Short Form: Raw Score: 18 CMS Score: 47% Informed Consent/Education: Patient instructed in purpose of PT consult and plan of care. Assessment: Patient is a 69 year old female referred to physical therapy services with the diagnosis of acute exacerbation of CHF (congestive heart failure), COPD exacerbation, Acute on chronic hypoxic respiratory failure. Pt is very aware and demonstrates safe technique that works for her to allow for independence within her environment. Demonstrates baseline mobility with transfers at this time. Patient presents with clinical signs and symptoms consistent with admitting diagnosis, as demonstrated by the following impairment level findings: 1. impaired strength BLE major muscle groups 2. impaired functional activity tolerance 3. Dyspnea on exertion 4. impaired balance standing Impairments are contributing to the following functional limitations: 1. AMPAC score. 2. increase time to complete ADL/ functional tasks Patient is assessed as a Moderate 92153 complexity based on the following: History: As above Examination: As above Presentation: Evolving Decision Making: Moderate Plan of Care/Treatment Plan: Radha demonstrates her baseline mobility with all transfers and bed mobility. Pt is very aware and demonstrates safe technique that works for her to allow for independence within her environment. Independent with motorized chair including appropriate speed and turning to avoid obstacles. Patient to be discharged once medically cleared. DISCHARGE RECOMMENDATIONS: Home with continued SN services through [facility] TREATMENT CODE/TIME: 12021, IE, 20 minutes 14:00 pm SUSI Boyer [facility] Disclaimer: This note was created using [employer] voice recognition software. It was reviewed for major content. However, there may be multiple small discrepancies and errors due to the voice recognition aspects of the software.
[2024-12-01] MEDS: AZITHROMYCIN 500 MG in Normal Saline 250 ML 250 MG IVPB (16:11)
[2024-12-01] MEDS: cefTRIAXone 1 GM/50 ML BAG IVPB (18:43)
[2024-12-01] MEDS: Nystatin POWDER 15 GM JAR TP (20:05)
[2024-12-02] VITALS (8 sets, daily range): BP systolic 118–127; BP diastolic 67–71; PULSE 74–88; RESP 3–20; TEMP 36.5–37.4; O2SAT 89–95
[2024-12-02] MEDS: Albuterol/Ipratropium 3 ML UPD VIAL UPD ×2 (04:17→09:15)
[2024-12-02] MEDS: Levothyroxine 100 MCG TAB 200 MCG PO (05:45)
[2024-12-02] MEDS: Furosemide 40 MG/4 ML VIAL IVP (08:22)
[2024-12-02] MEDS: Normal Saline Flush 10 ML SYR IVP (08:22)
[2024-12-02] MEDS: Enoxaparin 40 MG/0.4 ML SYR SC (08:47)
[2024-12-02] MEDS: predniSONE 20 MG TAB 40 MG PO (08:47)
[2024-12-02] MEDS: Empaglifozin 10 MG TAB PO (08:48)
[2024-12-02] MEDS: Sertraline 50 MG TAB PO (08:48)
[2024-12-02] MEDS: Norethindrone 5 MG TAB 10 MG PO (08:48)
[2024-12-02] MEDS: Lactobacillus Acidophilus CAP 1 CAP PO (08:48)
[2024-12-02] MEDS: Spironolactone 25 MG TAB PO (08:48)
[2024-12-02] MEDS: Pantoprazole 20 MG TABCR PO (08:48)
[2024-12-02] MEDS: Fluticasone NASAL SPRAY 16 GM BTL NS (08:56)
--- NOTE | 2024-12-02 09:40 | DSE_ITS ---
Date of service: 12/02/24 Time of Service: 09:41 DS: Diagnosis Discharge Diagnosis (1) COPD exacerbation: Status: Acute (2) Acute exacerbation of CHF (congestive heart failure): Status: Acute (3) Heart failure with preserved ejection fraction: Status: Acute (4) Acute on chronic hypoxic respiratory failure: Status: Acute (5) Hypokalemia: Status: Inactive (6) Atrial fibrillation: (7) Morbid obesity: Status: Acute (8) Elevated liver enzymes: Status: Acute (9) Postmenopausal bleeding: Status: Acute (10) DAVID (obstructive sleep apnea): (11) Left above-knee amputee: Status: Acute (12) On deep vein thrombosis (DVT) prophylaxis: Status: Acute Discharge Plan Disposition Patient Disposition: Home W/Home Health Services Condition: Stable Discharge Details Reason For Visit: CHF, COPD, hypokalemia, hypoxia Admit Date/Time: 11/28/24 21:12 Admit Provider: Brandan Hicks Attending Provider: Brandan Hicks Primary Care Provider: Alphonso Murphy Hospital Course Hospital Course: 69-year-old female with multiple medical contacts of late due to congestive heart failure as well as COPD presents on the with increasing shortness of breath. Was admitted for COPD versus CHF exacerbation. Over the ensuing 4 days patient has diuresis as well as optimization of her pulmonary status. On the she has to be discharged which we agree. Patient will go home with a prednisone taper as well as Zithromax to complete a 7-day course. Will also add Jardiance as patient has congestive heart failure. Prescription for aldactone a lso sent Date of service: 11/28/24 Time of Service: 21:21 Assessment and Plan Assessment and plan (1) COPD exacerbation: Status: Acute Assessment and plan: I think based on her history, the COPD is what tipped her over to hypoxic respiratory failure in the past 2 days. She is feeling better after IV solumedrol, continue prednisone back at higher dose Give alternative course of antibiotics ceftriaxone and azithromycin (2) Acute exacerbation of CHF (congestive heart failure): Status: Acute Assessment and plan: CXR and elements of exam suggest CHF, but she is more hypoxic than last week despite report of improvement in her fluid status since adding metolazone. Troponins not c/w ACS, get another EKG as well. Try adding spironolactone rather than metolazone given severe hypokalemia, BP is also above goal IV furosemide for now, but consider change to oral torsemide for more consistent absorption orally. Monitor on tele, Is/Os and daily weights. (3) Heart failure with preserved ejection fraction: Status: Acute Assessment and plan: as above she would also benefit from SGLT2i half-way, consider before discharge (4) Acute on chronic hypoxic respiratory failure: Status: Acute Assessment and plan: Secondary to both issues above. Current oxygen requirement 5L, above baseline 3L. Goal O2 sat 88-91% (5) Hypokalemia: Status: Inactive Assessment and plan: worse than previously, related to recent metolozone use. As above MRA may be better option to augment furosemide in the future if BP tolerates. Repleated IV 40mEq and po, follow. replace Mg prn as well (6) Atrial fibrillation: Assessment and plan: Not anticoagulated chronically. not on rate control, exam/monitor c/w NSR, rate okay. (7) Morbid obesity: Status: Acute Assessment and plan: encourage to consider medical options, f/u PCP (8) Elevated liver enzymes: Status: Acute Assessment and plan: mild elavation, similar to previous. Follow as outpatient (9) Postmenopausal bleeding: Status: Acute Assessment and plan: continue progesterone therapy (10) DAVID (obstructive sleep apnea): Assessment and plan: home BiPAP, can use ours overnight tonight as doesn't have hers. (11) Left above-knee amputee: Status: Acute Assessment and plan: in september, has been with wound vac to manage opened wound (12) On deep vein thrombosis (DVT) prophylaxis: Status: Acute Assessment and plan: high risk with h/o DVT, enoxparin History of Present Illness History of Present Illness Chief Complaint: short of breath Narrative: 69 years old female patient with a past medical history significant for COPD, CHF with preserved ejection fraction, atrial fibrillation, acute on chronic respiratory failure, wheelchair bound with left AKA and BMI >60 who was sent from [facility] with O2 sat in the mid to low 80%s on her baseline 3liters NC. She states she has felt more short of breath for the past 2 days. She was exposed to a visitor with a respiratory infection last week. Her symptoms started Sunday 11/26 with runny nose, congestion, increased productive cough. She saw her PCP Dr. Murphy last week 11/20 and they thought she had too much fluid, but her oxygen was not this low. He added twice weekly metolazone 2.5mg, which did help her urinate more. She has noted decrease in her LE edema since then. She notes she sometimes urinates a lot with her furosemide and sometimes she does not. She was treated in the ED 11/19 for COPD exacerbation with ciprofloxacin 750mg daily for 5 days and a 10 day taper of prednisone. Since being here in the ED she got furosemide 40mg IV and steroids and antibiotics. She does feel a little better Home Meds and New Rx's Prescriptions: New spironolactone 25 mg Tablet 25 mg PO DAILY Qty: 30 0RF Jardiance 10 mg Tablet 10 mg PO QAM Qty: 30 0RF prednisone 20 mg tablet 20 mg PO DAILY Qty: 10 0RF azithromycin [Zithromax] 250 mg tablet 250 mg PO DAILY 3 Days Qty: 3 0RF Rx Instructions: start on day 2 of therapy Continued albuterol sulfate 90 mcg/actuation HFA aerosol inhaler 1 - 2 puff Inhalation Q6H PRN Qty: 1 11RF fluticasone propionate [Flonase Allergy Relief] 50 mcg/actuation spray,suspension 1 spray NS DAILY Qty: 1 8RF potassium chloride [Klor-Con M20] 20 mEq tablet,ER particles/crystals 20 meq PO DAILY Qty: 90 3RF alclometasone 0.05 % cream 1 applic topical BID PRN (Reason: itching) Qty: 45 1RF ketoconazole 2 % cream 1 applic topical BID PRN (Reason: facial rash) Qty: 60 1RF metolazone 2.5 mg tablet 2.5 mg PO .q tues/frid Qty: 20 0RF gabapentin 300 mg capsule 600 mg PO TID PRN ascorbic acid (vitamin C) 1,000 MG tablet 1,000 mg PO DAILY (DME) Aerochamber Mini 1 EACH spacer 1 ea Inhalation PRN Qty: 1 Rx Instructions: DIRECTED WITH INHALER BiPAP Inhalation Gas 5 l IN DIRECTED Rx Instructions: sleep apnea ([facility] sleep lab 2013) uses with oxygen betamethasone, augmented 0.05 % lotion 1 applic topical BID PRN (Reason: allergic reaction) Qty: 60 2RF levothyroxine 200 mcg tablet 200 mcg PO DAILY Qty: 90 3RF oxygen Inhalation 3 l Intranasal DIRECTED Patient Comments: Continuous and uses with bipap Rx Instructions: 3L/NC continuous furosemide 80 mg tablet 80 mg PO BID@0830,1600 Qty: 60 0RF pantoprazole 20 mg tablet,delayed release (DR/EC) 20 mg PO DAILY Qty: 90 3RF Rx Instructions: 04/13/23 Per GI. -hb sertraline 50 mg tablet 50 mg PO DAILY Qty: 90 3RF norethindrone acetate 5 mg tablet 10 mg PO BID Qty: 180 1RF nystatin 100,000 unit/gram powder 1 applic TP BID Qty: 30 5RF BiomePRO 50 billion cell capsule,delayed release(DR/EC) 1 cap PO DAILY Qty: 4 0RF Rx Instructions: Take 3 hours apart form any antibiotics ipratropium-albuterol 0.5 mg-3 mg(2.5 mg base)/3 mL solution for nebulization 3 ml inhalation Q6H PRN (Reason: shortness of breath or wheezing) Qty: 90 0RF Discharge Instructions Referrals: Alphonso Murphy MD [Primary Care Provider] - (follow up with PCP in 3-5 days. Recommend repeat CBC and CMP within 3-5 days ) Activity:: Activity as Tolerated Equipment/Supplies:: No Equipment Needed Diet:: As Tolerated Discharge Orders Discharge Orders: Discharge Order (Routine); Ordered 12/02/24 Ordered By: Juan Cesar DS: Summary Time Spent with Patient providing and/or coordinating discharge services: Greater than 30 minutes Status at Discharge Functional status at discharge: wheelchair bound Overall status at discharge: patient is progressing back to baseline Mental Status: mental status grossly normal Speech and Movement: speech and movement normal Mood: congruent mood Affect: normal affect Quality:SDOH Health Related Social Needs: Health related social needs problems with daily activi ties (Z73.9) Exam Narrative Exam Narrative: GEN: Alert and oriented x 4, pleasant and cooperative, gives linear history. No acute distress at rest. HEENT: Head atraumatic. Conjunctiva clear, no icterus. PEERL, EOMI. no rhinorrhea. MMM, OP benign. Neck is supple with no masses or lymphadenopathy, trachea midline LUNGS: bilateral wheeze worse with expiration with coarse breath sound bilaterally. NO AMU CV: RRR with no murmurs, gallops, or rubs. extremities warm, cap refill <2 sec. Could not appreciate JVP ABD: active bowel sounds, soft, nontender and nondistended. No masses. EXT: no cyanosis, clubbing. 1+ pitting edema in RLE. Left AKA, wound not evaluated. MSK: No joint redness or swelling NEURO: CN 2-12 grossly intact. Normal movement of 4 extremities. Normal speech and coordination. No tremor SKIN: No rashes or open wounds on skin other than left AKA surgical wound. PSYCH: normal mood and affect, nl thought process Psych Mental Status: mental status grossly normal Speech and Movement: speech and movement normal Mood: congruent mood Affect: normal affect DS: Data Vitals/I&O Vitals and I&O: Vital Signs Temperature 36.5 C 12/02/24 07:44 Temperature Source Temporal Artery Scan 12/02/24 07:44 Pulse 84 12/02/24 09:36 Pulse Rhythm Regular 11/29/24 00:18 Pulse 87 11/28/24 22:20 Respiratory Rate 18 12/02/24 09:15 Respiratory Effort Accessory Muscle Use 11/29/24 00:18 Respiratory Depth Normal 11/29/24 00:18 Respiratory Pattern Tachypnea 11/29/24 00:18 Blood Pressure 127/67 12/02/24 07:44 Blood Pressure Mean 100 11/28/24 22:56 Blood Pressure Position Sitting 11/28/24 13:27 Pulse Oximetry 95 12/02/24 09:36 Oxygen Delivery Method Nasal Cannula 12/02/24 09:15 Oxygen Flow Rate 0 12/02/24 09:15 Fraction of Inspired Oxygen (FIO2) 32 11/30/24 09:29 Pain Level 0 12/01/24 16:01 Comment RN notified 11/29/24 11:31 Comment oxymask 11/28/24 22:20 Intake & Output 12/01/24 12/01/24 12/02/24 11:59 23:59 11:59 Intake Total 610 / 610 Output Total 1500 / 3550 2050 / 3550 775 / 775 Balance -1500 / -2940 -1440 / -2940 -775 / -775 Intake: IV 260 / 260 Oral 350 / 350 Output: Output, Wound Vac (mls) 0 / 0 Urine 1500 / 3550 2050 / 3550 775 / 775 Other: Urine Color Yellow Yellow Yellow Urine Appearance Clear Cloudy Clear Stool Size Copious Stool Characteristics Soft Formed PFSH All Active Problems (Updated 11/28/24 @ 22:03 by Brandan Hicks) Acute on chronic hypoxic respiratory failure (Acute) Acute exacerbation of CHF (congestive heart failure) (Acute) COPD exacerbation (Acute) Left above-knee amputee (Acute) On deep vein thrombosis (DVT) prophylaxis (Acute) Advanced care planning/counseling discussion (Acute) Elevated liver enzymes (Acute) Exertional shortness of breath (Acute) Heart failure with preserved ejection fraction (Acute) Wound dehiscence (Acute) Thickened endometrium (Acute) Postmenopausal bleeding (Acute) Venous stasis dermatitis (Acute) Chronic headaches (Chronic) Recent Neurology consult for possible papilledema. Urinary incontinence (Chronic) On Detrol Recurrent UTI (Chronic) Right ventricular dysfunction (Chronic) Knee pain, bilateral (Chronic 07/23/14) s/p bilat TKR (left infected with mult surg and decreased mobility) Morbid obesity (Acute 04/05/13) Sensorineural hearing loss, bilateral (Chronic 08/29/13) Advance directive on file (Acute) Low back pain with sciatica (Chronic 05/03/14) [place] [facility] [place] Varicose veins of lower extremity (Chronic) Depression (Chronic) Grief at loss of child (Acute) Mixed conductive and sensorineural hearing loss of both ears (Acute) Right carpal tunnel syndrome (Acute) Arthritis of right hand (Acute) Impingement of right ulnar nerve (Acute) Dermoid cyst of neck (Acute) Microcalcifications of the breast (Acute) Neuropathy of left hand (Acute) Neuropathy of right hand (Acute) Bilateral carpal tunnel syndrome (Acute) Medical History Palliative care patient CHF (congestive heart failure) Atrial fibrillation COPD (chronic obstructive pulmonary disease) Hx pulmonary embolism (~2015) treated with lovenox x 3 months GERD (gastroesophageal reflux disease) had negative barium esophagram in 11/2022. Anxiety Lymphedema Hypothyroidism DAVID (obstructive sleep apnea) on BiPap Chronic respiratory failure with hypoxia and hypercapnia home BiPap Surgical History S/P AKA (above knee amputation) (~09/2024) Status post thyroidectomy History of fasciotomy Replacement of total knee joint Bilateral; left-became wagcyhwp-awpisau-fabpzidn surgeries Fasciotomy, Foot (~1996) LEFT History of Surgical Procedure a. Right and left toal knee replacements. b. Left knee has been repeatedly operated on with slava surgies, three replacements. Family History Mother Diabetes Personal history of malignant neoplasm LUNG Father Personal history of malignant neoplasm BRAIN Grandfather No problems noted. Grandfather No problems noted. Grandmother No problems noted. Grandmother No problems noted. Social History (Updated 11/28/24 @ 21:52 by Brandan Hicks) Smoking/Tobacco Use Status: Former Tobacco Use tobacco type: cigarettes Quit Date: 01/21/21 Second Hand Exposure: Yes Smoking risk assessment performed?: Yes Alcohol Intake: never Drug use: Never Substance use type: does not use Counseling given: No Housing: apartment Communication Needs: Hard of Hearing and Corrective Lenses Pets and animals: Yes Pets and animals: cat(s) Sexually active: Yes Current gender identity: female What is your relationship status?: never How often do you talk on the phone with friends or family?: decline to answer How often do you get together with friends or relatives?: decline to answer How often do you attend gnosticist or lutheran services?: decline to answer Do you belong to any clubs or organized social groups?: no Panel score (0-1 are the most socially isolated patients): 0 Seatbelt use: never Do you feel safe at home: Yes Do you feel safe in your relationship?: Yes Additional Social history: Lives in her own apartment in [facility] Time Spent with Patient Time Spent with Patient: 45-69 minutes Time was spent: preparing to see the patient(eg.review tests), obtaining and/or reviewing separately otained hiistory, ordering medications,tests, procedures, referring, communicating with other health care rep, indepentently interpreting results, counseling the patient and care coordination
[2024-12-02] MEDS: Albuterol 2.5 MG/3 ML INH SOLN VIAL UPD (12:05)
--- NOTE | 2024-12-02 12:36 | CMDISCH_ITS ---
Date of service: 12/02/24 Time of Service: 12:36 LACE Index Scoring Tool Questions: Length of Stay (in days): 4 - 6 Was the patient admitted via the E.D.?: Yes Comorbidities: Diabetes w/o Complication, Congestive Heart Failure, Chronic Pulmonary Disease and Liver or Renal Disease E.D. Visits: 10 Answers: Total Score: 16 Risk of Readmission: High Risk Care Management Discharge Plan Reason for Hospitalization: CHF, COPD Discharge Plan: Radha will be discharged home with a resumption of her HH RN. She will f/u with her PCP and ortho and continue per her plan of care. She will transport home via private vehicle. Patient/Family Education Needs: Review discharge instructions, limitations, follow up plan and discuss Ask Me Three Services Needed at Discharge: Home Health Care Services SDOH Health Related Social Needs: Health related social needs problems with daily activi ties (Z73.9)
[2024-12-02] MEDS: Nystatin POWDER 15 GM JAR TP (12:48)
== END 2024-12-02 12:30 | disposition home health service (06) | DRG 291 ==
LOC: ER 23:24 → MS 23:27
PROVIDERS: Admitting Provider Family Medicine; Emergency Provider Emergency Medicine; PCP Family Medicine; Responsible Provider Hospitalist; Visit Provider Family Medicine
DX: I50.33 Acute on chronic diastolic (congestive) heart failure (principal); J96.21 Acute and chronic respiratory failure with hypoxia; J44.1 Chronic obstructive pulmonary disease with (acute) exacerbation; Z68.44 Body mass index [BMI] 60.0-69.9, adult; I48.91 Unspecified atrial fibrillation; E87.6 Hypokalemia; E66.01 Morbid (severe) obesity due to excess calories; Z74.8 Other problems related to care provider dependency; N95.0 Postmenopausal bleeding; G47.33 Obstructive sleep apnea (adult) (pediatric); E89.0 Postprocedural hypothyroidism; I87.2 Venous insufficiency (chronic) (peripheral); R32 Unspecified urinary incontinence; Z96.653 Presence of artificial knee joint, bilateral; H90.3 Sensorineural hearing loss, bilateral; M54.40 Lumbago with sciatica, unspecified side; F32.A Depression, unspecified; F41.9 Anxiety disorder, unspecified; K21.9 Gastro-esophageal reflux disease without esophagitis; I89.0 Lymphedema, not elsewhere classified; Z86.711 Personal history of pulmonary embolism; Z99.3 Dependence on wheelchair; Z99.81 Dependence on supplemental oxygen; Z87.891 Personal history of nicotine dependence; Z89.612 Acquired absence of left leg above knee; Z79.899 Other long term (current) drug therapy
CPT/HCPCS: 00123; 36415; 51702; 80048; 80053; 93005; 94640; 96365; 96367; 96375; 97162; 99285; J1650; 71046; 83735; 83880; 84484; 85025; 93010; 94660; 94667; 94760; 99223; 99232; 99239; J0456; J0696; J1941; J2919; J3480; J7512; J7613; J7620

== ENCOUNTER 2024-12-06 16:38 | Outpatient (CLI) | payer MEDICARE, MEDICAID, SELFPAY ==
[2024-12-06 16:49] LABS: Absolute Basophil Count 0.03 10^3/uL (0.0-0.2); Absolute Lymphocyte Count 1.63 10^3/uL (1.2-3.4); Basophils % 0.2 %; Eosinophils % 1.9 %; HCT 37.7 % (36.0-46.0); HGB 11.1 g/dL (11.2-15.7); Immature Grans % 0.7 %; Lymphocytes % 11.6 %; MCH 22.8 pg (27.0-33.0); MCHC 29.4 % (32.0-36.0); MCV 78 fL (80-95); MPV 9.2 fL (8.0-11.0); Monocytes % 6.6 %; Platelet Count 409 10^3/uL (130-400); RBC 4.86 10^6/uL (3.93-5.22); RDW 19.3 % (11.7-14.6); RDW-SD 53.6 fL; WBC 14.01 10^3/uL (4.4-10.8)
[2024-12-06 16:50] LABS: Absolute Eosinophil Count 0.27 10^3/uL (0.0-0.7); Absolute Monocyte Count 0.92 10^3/uL (0.1-0.8); Absolute Neutrophil Count 11.07 10^3/uL (1.2-6.7)
[2024-12-06 17:24] LABS: ALT 71 U/L (14-59); AST 37 U/L (15-37); Albumin 2.5 g/dL (3.4-5.0); Alkaline Phosphatase 88 U/L (46-116); Anion Gap 3.8 mmol/L (3-11); BUN 19 mg/dL (7-18); Bilirubin, Total 0.8 mg/dL (0.2-1.0); CO2 34.2 mmol/L (21.0-32.0); CREATININE 0.7 mg/dL (0.55-1.02); Calcium 8.6 mg/dL (8.5-10.1); Chloride 100 mmol/L (98-107); Estimated GFR 94.15 (mL/min/1.73m2); Glucose 119 mg/dL (74-106); Potassium 3.7 mmol/L (3.5-5.1); Sodium 138 mmol/L (136-145); Total Protein 7.4 g/dL (6.4-8.2)
== END 2024-12-06 16:39 | disposition home or self-care (01) ==
LOC: LBO 16:42
PROVIDERS: PCP Family Medicine; Visit Provider Family Medicine
DX: J96.21 Acute and chronic respiratory failure with hypoxia (principal)
CPT/HCPCS: 36415; 80053; 85025

== ENCOUNTER 2024-12-25 15:21 | Outpatient (CLI) | payer MEDICARE, MEDICAID, SELFPAY ==
[2024-12-25 15:16] LABS: Abs Immature Grans 0.03 10^3/uL (0.0-0.06); Absolute Basophil Count 0.05 10^3/uL (0.0-0.2); Absolute Eosinophil Count 0.25 10^3/uL (0.0-0.7); Absolute Lymphocyte Count 2.58 10^3/uL (1.2-3.4); Absolute Monocyte Count 0.84 10^3/uL (0.1-0.8); Absolute Neutrophil Count 6.66 10^3/uL (1.2-6.7); Basophils % 0.5 %; Eosinophils % 2.4 %; HGB 11.7 g/dL (11.2-15.7); Immature Grans % 0.3 %; Lymphocytes % 24.8 %; MCH 22.7 pg (27.0-33.0); MCHC 30.8 % (32.0-36.0); MCV 74 fL (80-95); MPV 9.5 fL (8.0-11.0); Monocytes % 8.1 %; Neutrophils % 63.9 %; Platelet Count 466 10^3/uL (130-400); RBC 5.15 10^6/uL (3.93-5.22); RDW 20.4 % (11.7-14.6); RDW-SD 53.1 fL; WBC 10.41 10^3/uL (4.4-10.8)
[2024-12-25 15:32] LABS: Anisocytosis 1+; Diff Comment RBC Morph Reviewed; Microcytosis 1+
== END 2024-12-25 15:22 | disposition home or self-care (01) ==
LOC: LBO 15:22
PROVIDERS: PCP Family Medicine; Visit Provider Student in an Organized Health Care Education/Training Program
DX: N95.0 Postmenopausal bleeding (principal)
CPT/HCPCS: 36415; 85025

== ENCOUNTER 2025-01-30 12:13 | Emergency (ER) | payer MEDICARE, MEDICAID, SELFPAY ==
[2025-01-30] VITALS (28 sets, daily range): BP systolic 62–125; BP diastolic 42–79; PULSE 83–91; RESP 17–30; TEMP 37.1; O2SAT 91–99
--- NOTE | 2025-01-30 12:30 | W.ED.GENAD ---
Discharge Plan Disposition Patient Disposition: Home Condition: Stable Discharge Details Clinical Impression: Electrolyte disturbance, COPD exacerbation Primary Care Provider: Alphonso Murphy ED Provider: Cindi Fox Home Meds and New Rx's Prescriptions: Continued albuterol sulfate 90 mcg/actuation HFA aerosol inhaler 1 - 2 puff Inhalation Q6H PRN Qty: 1 11RF fluticasone propionate [Flonase Allergy Relief] 50 mcg/actuation spray,suspension 1 spray NS DAILY Qty: 1 8RF potassium chloride [Klor-Con M20] 20 mEq tablet,ER particles/crystals 20 meq PO DAILY Qty: 90 3RF alclometasone 0.05 % cream 1 applic topical BID PRN (Reason: itching) Qty: 45 1RF gabapentin 300 mg capsule 600 mg PO TID PRN levothyroxine 200 mcg tablet 200 mcg PO DAILY Qty: 90 3RF furosemide 80 mg tablet 80 mg PO BID@0830,1600 Qty: 180 3RF ascorbic acid (vitamin C) 1,000 MG tablet 1,000 mg PO DAILY (DME) Aerochamber Mini 1 EACH spacer 1 ea Inhalation PRN Qty: 1 Rx Instructions: DIRECTED WITH INHALER BiPAP Inhalation Gas 5 l IN DIRECTED Rx Instructions: sleep apnea ([facility] sleep lab 2012) uses with oxygen betamethasone, augmented 0.05 % lotion 1 applic topical BID PRN (Reason: allergic reaction) Qty: 60 2RF oxygen Inhalation 3 l Intranasal DIRECTED Patient Comments: Continuous and uses with bipap Rx Instructions: 3L/NC continuous pantoprazole 20 mg tablet,delayed release (DR/EC) 20 mg PO DAILY Qty: 90 3RF Rx Instructions: 04/13/23 Per GI. -hb sertraline 50 mg tablet 50 mg PO DAILY Qty: 90 3RF metolazone 2.5 mg tablet 2.5 mg PO .q tues/frid Qty: 20 2RF ketoconazole 2 % cream 1 applic topical BID PRN (Reason: facial rash) Qty: 60 1RF norethindrone acetate [Gallifrey] 5 mg tablet See Rx Instructions .ROUTE .COMPLEX Qty: 180 1RF Dose Instruction: TAKE TWO TABLETS BY MOUTH TWICE A DAY Rx Instructions: TAKE TWO TABLETS BY MOUTH TWICE A DAY nystatin 100,000 unit/gram powder 1 applic TP BID Qty: 30 5RF BiomePRO 50 billion cell capsule,delayed release(DR/EC) 1 cap PO DAILY Qty: 4 0RF Rx Instructions: Take 3 hours apart form any antibiotics ipratropium-albuterol 0.5 mg-3 mg(2.5 mg base)/3 mL solution for nebulization 3 ml inhalation Q6H PRN (Reason: shortness of breath or wheezing) Qty: 90 0RF spironolactone 25 mg Tablet 25 mg PO DAILY Qty: 30 0RF Jardiance 10 mg Tablet 10 mg PO QAM Qty: 30 0RF prednisone 20 mg tablet 20 mg PO DAILY Qty: 10 0RF Discharge Instructions Instructions: High Potassium Diet, COPD Exacerbation, Adult ED Additional Instructions: At this time CT abd is negative for gallbladder problems. PLease continue your previously prescribed COPD medications and inhalers. Your potassium was low today and magnesium low, please eat a diet high in potassium over the next 2-3 days. Follow up with your PCP in 3-5 days, return sooner if any worsening. Referrals: Alphonso Murphy MD [Primary Care Provider, Medicine] - 1 week Discharge Data Discharge Date/Time-TO BE ENTERED AT DEPARTURE: 01/30/25 17:24 HPI <INESSA Ngo - Last Filed: 01/30/25 22:18> General Date/Time Provider Initiated Documentation: 01/30/25 12:30. Limitations to Documentation: no limitations. Information obtained by: patient, RN notes reviewed and old records reviewed. History of Present Illness 69 year old F presents to the emergency department with the chief complaint of Shortness of breath right upper quadrant pain, described as moderate and similar to prior episodes (SOB similar to previous episodes RUQ pain is new), Quality is described as stabbing, and is localized to the abdomen. Patient reports no radiation. Patient started experiencing this day(s) and it has been constant. No relieving factors improve symptom(s), Eating worsens symptoms (worse after greasy food ) . Patient notes cough, fever/chills (T max 100*F), loss of appetite, malaise, nausea/vomiting and shortness of breath; denies chest pain, diaphoresis, headaches, rash, syncope and weakness. Patient did receive the following treatments prior to arrival, none Related Data Home Medications ?Medication ?Instructions ?Recorded ?Confirmed ascorbic acid (vitamin C) 1,000 mg 1,000 mg PO DAILY 11/25/12 01/30/25 tablet inhalational spacing device ##1 12/21/13 01/30/25 (Aerochamber Mini) Bipap 5 l IN DIRECTED 07/23/14 01/30/25 betamethasone, augmented 0.05 % 1 applic topical BID PRN allergic 06/20/21 01/30/25 lotion reaction #60 mL oxygen 3 l intranasal DIRECTED 04/02/24 01/30/25 L. acidophilus,casei,rhamnosus 50 1 cap PO DAILY #4 caps 06/04/24 01/30/25 billion cell capsule,delayed release (BiomePRO) nystatin 100,000 unit/gram topical 1 applic topical BID intertrigo 06/04/24 01/30/25 powder #30 grams albuterol sulfate 90 mcg/actuation 1 - 2 puff inhalation Q6H PRN ##1 07/17/24 01/30/25 aerosol inhaler fluticasone propionate 50 1 spray NS DAILY ##1 07/17/24 01/30/25 mcg/actuation nasal spray,suspension (Flonase Allergy Relief) potassium chloride 20 mEq 20 meq PO DAILY #90 tabs 07/17/24 01/30/25 tablet,extended release(part/cryst) (Klor-Con M) pantoprazole 20 mg tablet,delayed 20 mg PO DAILY #90 tabs 07/26/24 01/30/25 release sertraline 50 mg tablet 50 mg PO DAILY #90 tabs 07/26/24 01/30/25 gabapentin 300 mg capsule 600 mg PO TID PRN 10/11/24 01/30/25 ipratropium 0.5 mg-albuterol 3 mg 3 ml inhalation Q6H PRN shortness 11/19/24 01/30/25 (2.5 mg base)/3 mL nebulization of breath or wheezing #90 mL soln alclometasone 0.05 % topical cream 1 applic topical BID PRN itching 11/20/24 01/30/25 #45 grams empagliflozin 10 mg tablet 10 mg PO QAM #30 tabs 12/02/24 01/30/25 (Jardiance) prednisone 20 mg tablet 20 mg PO DAILY #10 tabs 12/02/24 01/30/25 spironolactone 25 mg tablet 25 mg PO DAILY #30 tabs 12/02/24 01/30/25 metolazone 2.5 mg tablet 2.5 mg PO .q tu/frid #20 tabs 12/08/24 01/30/25 ketoconazole 2 % topical cream 1 applic topical BID PRN facial 12/19/24 01/30/25 rash #60 grams norethindrone acetate 5 mg tablet See Rx Instructions .Route 12/31/24 01/30/25 (Gallifrey) .COMPLEX #180 tabs furosemide 80 mg tablet 80 mg PO BID@0830,1600 #180 tabs 01/10/25 01/30/25 levothyroxine 200 mcg tablet 200 mcg PO DAILY #90 tabs 01/10/25 01/30/25 Previous Rx's ?Medication ?Instructions ?Recorded betamethasone, augmented 0.05 % 1 applic topical BID PRN allergic 06/20/21 lotion reaction #60 mL L. acidophilus,casei,rhamnosus 50 1 cap PO DAILY #4 caps 06/04/24 billion cell capsule,delayed release (BiomePRO) nystatin 100,000 unit/gram topical 1 applic topical BID intertrigo 06/04/24 powder #30 grams albuterol sulfate 90 mcg/actuation 1 - 2 puff inhalation Q6H PRN ##1 07/17/24 aerosol inhaler fluticasone propionate 50 1 spray NS DAILY ##1 07/17/24 mcg/actuation nasal spray,suspension (Flonase Allergy Relief) potassium chloride 20 mEq 20 meq PO DAILY #90 tabs 07/17/24 tablet,extended release(part/cryst) (Klor-Con M) pantoprazole 20 mg tablet,delayed 20 mg PO DAILY #90 tabs 07/26/24 release sertraline 50 mg tablet 50 mg PO DAILY #90 tabs 07/26/24 ipratropium 0.5 mg-albuterol 3 mg 3 ml inhalation Q6H PRN shortness 11/19/24 (2.5 mg base)/3 mL nebulization of breath or wheezing #90 mL soln alclometasone 0.05 % topical cream 1 applic topical BID PRN itching 11/20/24 #45 grams empagliflozin 10 mg tablet 10 mg PO QAM #30 tabs 12/02/24 (Jardiance) prednisone 20 mg tablet 20 mg PO DAILY #10 tabs 12/02/24 spironolactone 25 mg tablet 25 mg PO DAILY #30 tabs 12/02/24 metolazone 2.5 mg tablet 2.5 mg PO .q tues/frid #20 tabs 12/08/24 ketoconazole 2 % topical cream 1 applic topical BID PRN facial 12/19/24 rash #60 grams norethindrone acetate 5 mg tablet See Rx Instructions .Route 12/31/24 (Gallifrey) .COMPLEX #180 tabs furosemide 80 mg tablet 80 mg PO BID@0830,1600 #180 tabs 01/10/25 levothyroxine 200 mcg tablet 200 mcg PO DAILY #90 tabs 01/10/25 Allergies Allergy/AdvReac Type Severity Reaction Status Date / Time hydrocodone Allergy Severe ITCHING Verified 01/30/25 12:26 morphine Allergy Mild PRURITIS Verified 01/30/25 12:26 oxycodone Allergy Mild ITCHING Verified 01/30/25 12:26 General Stated Complaint: SOB REUBEN: 3 Review of Systems <INESSA Ngo - Last Filed: 01/30/25 22:18> Constitutional Constitutional: Reports as per HPI, Denies chills, Denies headache(s) and Denies lethargy Eyes Eyes: Denies change in vision ENT Ears, Nose, Mouth, and Throat: Denies headache(s) Cardiovascular Cardiovascular: Reports as per HPI Respiratory Respiratory: Reports as per HPI, Denies chest congestion, Denies pain on inspiration and Denies pain with cough Gastrointestinal Gastrointestinal: Reports as per HPI, Denies abdominal pain and Denies diarrhea Musculoskeletal Musculoskeletal: Reports as per HPI and Denies back pain Integumentary/Breasts Skin/Breast: Reports as per HPI and Denies rash Neurologic Neurologic: Reports as per HPI and Denies headache(s) Exam <INESSA Ngo Last Filed: 01/30/25 22:18> Const General: cooperative, comfortable, no acute distress, well developed, anxious and ill appearing chronically Nutritional Appearance: well nourished and overweight Orientation: alert, awake and oriented x3 Resp Effort & Inspection: normal respiratory effort, able to speak in complete sentences and no respiratory distress Auscultation: no rales, no rhonchi and wheezes scattered wheezes Cardio Rate: regular rate Rhythm: regular rhythm Heart Sounds: S1 normal and S2 normal GI Inspection: normal to inspection (has soem excoriated areas on hai anterior right side of abdomen), large pannus and obesity Palpation: soft, not firm, no guarding, no masses, not rigid and tender in the RUQ Back/Spine/Pelvis Back: no CVA tenderness Thoracic/Lumbar Spine: thoracic and lumbar spine normal to inspection Neuro General: patient alert, patient awake and patient oriented x3 Cognition: normal cognition Speech: speech normal Course <INESSA Ngo - Last Filed: 01/30/25 22:18> Vital Signs Vital signs: Vital Signs Temperature 37.1 C 01/30/25 12:21 Pulse 87 01/30/25 12:21 Respiratory Rate 30 H 01/30/25 12:21 Blood Pressure 125/79 01/30/25 12:21 Pulse Oximetry 91 L 01/30/25 12:21 Temperature 37.1 C 01/30/25 12:24 Pulse 87 01/30/25 12:24 Respiratory Rate 30 H 01/30/25 12:24 Blood Pressure 125/79 01/30/25 12:24 Blood Pressure Position Sitting 01/30/25 12:24 Pulse Oximetry 91 L 01/30/25 12:24 Oxygen Delivery Method Room Air 01/30/25 12:24 Oxygen Flow Rate 0 01/30/25 12:24 Medical Decision Making <INESSA Ngo Last Filed: 01/30/25 22:18> Patient is a 69-year-old female, well-known to myself the department, with past medical history significant for obesity, heart failure with preserved ejection fraction, left mfksx-vmn-uwti amputation, recurrent UTIs, depression, atrial fibrillation, COPD, ED, GERD, lymphedema, hypothyroid, DAVID, COPD, presented with chief complaint of shortness of breath exacerbation, particularly exertion as well as new onset right upper quadrant abdominal pain. She reports that shortness of breath has been increasing for the past 4 days that she began developing a cough yesterday. Reports has had a low-grade temp at home with a Tmax of 100 this Fahrenheit. States that she typically uses 3 L nasal cannula but is also found that using BiPAP during the day has helped with some of her shortness of breath as well as increasing the number of nebulizers that she is using. Patient reports she is not anticoagulated. Has been taking all of her medications as prescribed. Reports that she has had increased sputum production with the cough and that she can have fairly violent coughing fits that do result in posttussive emesis. She reports it began yesterday. She also reports to having nausea and vomiting particularly after eating greasy food. She reports that after eating [employer] yesterday she had episode of emesis and has had persistent right upper quadrant discomfort since then. Denies any previous abdominal surgeries. She denies any chest pain or pleuritic pain. No recent travel or known sick contacts. On exam, patient appears non-toxic. She appears to be at her baseline but does have intermittent pain causing her to hold her RUQ of her abdomen. She has no CVA tenderness. No involuntary guarding. No respiratory distress. She does have some scattered wheezes. With the RUQ pain, worse after eating greasy food, concerned for gallbladder disease. She has never had this in the past. Will obtain US. With her difficulty laying flat, I have reached out to RT as well so that she can have BiPAP support during the study. Will obtain labs. Will also obtain CXR although primary concern at this time seems to be more around the abdominal pain. Will give breathing treatment. She is on her baseline O2. Responds well at home to her typical breathing treatments. Labs reviewed. K+ 3.1, will replenish orally, will also give magnesium. No leukocytosis. Anemic, she has had this historically as well. No evidence to suggest acute bleed. Slight bump in LFT, this could suggest the GB disease. Patient not able to tolerate the liquid K+, will give tablet which patient states she normally does well with. Pain is increasing in the RUQ, will give fentanyl as she cannot have morphine. Has tried APAP, with possible surgical abdomen, will hold off on NSAID. US attempted by [employer]. She was unable to complete d/t body habitus. Will move forward with CT scan for further evaluation of the RUQ pain. At the end of my shift, care transitioned to oncoming provider with imaging pending. Patient remains hemodynamically stable. Breathing did improve after treatment. 01/30: 1837: SJ: Signed out to me by my colleague Rosa Hinkle. Please see my progress note. Quality:SDOH Health Related Social Needs: Health related social needs daily activities <Cindi Fox NP - Last Filed: 01/30/25 18:39> Patient is a 69-year-old female, well-known to myself the department, with past medical history significant for obesity, heart failure with preserved ejection fraction, left fggnf-rpf-hbal amputation, recurrent UTIs, depression, atrial fibrillation, COPD, ED, GERD, lymphedema, hypothyroid, DAVID, COPD, presented with chief complaint of shortness of breath exacerbation, particularly exertion as well as new onset right upper quadrant abdominal pain. She reports that shortness of breath has been increasing for the past 4 days that she began developing a cough yesterday. Reports has had a low-grade temp at home with a Tmax of 100 this Fahrenheit. States that she typically uses 3 L nasal cannula but is also found that using BiPAP during the day has helped with some of her shortness of breath as well as increasing the number of nebulizers that she is using. Patient reports she is not anticoagulated. Has been taking all of her medications as prescribed. Reports that she has had increased sputum production with the cough and that she can have fairly violent coughing fits that do result in posttussive emesis. She reports it began yesterday. She also reports to having nausea and vomiting particularly after eating greasy food. She reports that after eating [employer] yesterday she had episode of emesis and has had persistent right upper quadrant discomfort since then. Denies any previous abdominal surgeries. She denies any chest pain or pleuritic pain. No recent travel or known sick contacts. K+ 3.1, will replenish orally, will also give magnesium. Patient not able to tolerate the liquid K+, will give tablet which patient states she normally does well with. Pain is increasing in the RUQ, will give fentanyl. 1837: SJ: Signed out to me by my colleague Rosa Hinkle. Please see my progress note. PFSH <INESSA Ngo - Last Filed: 01/30/25 22:18> All Active Problems (Updated 01/30/25 @ 17:07 by Cindi Fox NP) COPD exacerbation (Acute) Electrolyte disturbance (Acute) Acute on chronic hypoxic respiratory failure (Acute) Left above-knee amputee (Acute) On deep vein thrombosis (DVT) prophylaxis (Acute) Advanced care planning/counseling discussion (Acute) Elevated liver enzymes (Acute) Exertional shortness of breath (Acute) Heart failure with preserved ejection fraction (Acute) Wound dehiscence (Acute) Thickened endometrium (Acute) Postmenopausal bleeding (Acute) Venous stasis dermatitis (Acute) Chronic headaches (Chronic) Recent Neurology consult for possible papilledema. Urinary incontinence (Chronic) On Detrol Recurrent UTI (Chronic) Right ventricular dysfunction (Chronic) Knee pain, bilateral (Chronic 07/23/14) s/p bilat TKR (left infected with mult surg and decreased mobility) Morbid obesity (Acute 04/05/13) Sensorineural hearing loss, bilateral (Chronic 08/29/13) Advance directive on file (Acute) Low back pain with sciatica (Chronic 05/03/14) CT at [facility] L34 spinal stenosis Varicose veins of lower extremity (Chronic) Depression (Chronic) Grief at loss of child (Acute) Mixed conductive and sensorineural hearing loss of both ears (Acute) Right carpal tunnel syndrome (Acute) Arthritis of right hand (Acute) Impingement of right ulnar nerve (Acute) Dermoid cyst of neck (Acute) Microcalcifications of the breast (Acute) Neuropathy of left hand (Acute) Neuropathy of right hand (Acute) Bilateral carpal tunnel syndrome (Acute) Medical History Palliative care patient CHF (congestive heart failure) Atrial fibrillation COPD (chronic obstructive pulmonary disease) Hx pulmonary embolism (~2015) treated with lovenox x 3 months GERD (gastroesophageal reflux disease) had negative barium esophagram in 11/2022. Anxiety Lymphedema Hypothyroidism DAVID (obstructive sleep apnea) on BiPap Chronic respiratory failure with hypoxia and hypercapnia home BiPap Surgical History S/P AKA (above knee amputation) (~09/2024) Status post thyroidectomy History of fasciotomy Replacement of total knee joint Bilateral; left-became epplfbsi-qoodcaf-ppmnpnbb surgeries Fasciotomy, Foot (~1996) LEFT History of Surgical Procedure a. Right and left toal knee replacements. b. Left knee has been repeatedly operated on with slava surgies, three replacements. Family History Mother Diabetes Personal history of malignant neoplasm LUNG Father Personal history of malignant neoplasm BRAIN Grandfather No problems noted. Grandfather No problems noted. Grandmother No problems noted. Grandmother No problems noted. Social History (Updated 11/28/24 @ 21:52 by Brandan Hicks) Smoking/Tobacco Use Status: Former Tobacco Use tobacco type: cigarettes Quit Date: 01/21/21 Second Hand Exposure: Yes Smoking risk assessment performed?: Yes Alcohol Intake: never Drug use: Never Substance use type: does not use Counseling given: No Housing: apartment Communication Needs: Hard of Hearing and Corrective Lenses Pets and animals: Yes Pets and animals: cat(s) Sexually active: Yes Current gender identity: female What is your relationship status?: never How often do you talk on the phone with friends or family?: decline to answer How often do you get together with friends or relatives?: decline to answer How often do you attend voodoo or rastafari services?: decline to answer Do you belong to any clubs or organized social groups?: no Panel score (0-1 are the most socially isolated patients): 0 Seatbelt use: never Do you feel safe at home: Yes Do you feel safe in your relationship?: Yes Additional Social history: Lives in her own apartment in [facility], uses electric scooter
--- NOTE | 2025-01-30 13:00 | DI.RAD_ITS ---
Exam(s) XR CHEST 2V PA LATERAL EXAM: XR CHEST 2V PA LATERAL CLINICAL HISTORY: SOB, cough TECHNIQUE: 2D digital imaging was performed. Two views. COMPARISON: CR,XR XR PORTABLE CHEST AP from 04/10/2024 CR XR PORTABLE CHEST AP from 07/03/2024 CR,XR XR PORTABLE CHEST AP from 08/04/2024 CR,XR XR CHEST 2V PA LATERAL from 08/04/2024 CR XR CHEST 2V PA LATERAL from 09/15/2024 CR XR CHEST 2V PA LATERAL from 11/19/2024 FINDINGS: Exam is extremely limited due to being performed in a wheelchair and patient body habitus, as well as low lung volumes on the lateral view.. HEART: Enlarged, unchanged. Aorta: Not dilated. PULMONARY VASCULATURE: Prominent, similar to previous exams. MEDIASTINUM: Widened secondary to magnification. LUNGS: Mildly increased interstitial markings and peribronchial thickening consistent with CHF. PLEURAL SPACE: No pleural effusion or pneumothorax. BONE:Unremarkable for age. SOFT TISSUES: Unremarkable. IMPRESSION: Cardiomegaly and mild CHF. Limited exam. No visible focal infiltrate. DATA REPOSITORY: RADIATION DOSE DELIVERED:
--- NOTE | 2025-01-30 13:00 | RT.EKG_ITS ---
APPROVED REPORT Exam: Resting ECG Reason for Exam: SOB, nausea Patient Location: E HR:85 bpm ECG Measurements Heart Rate 85 AXIS DC 178 P 65 QRSd 98 QRS 70 QT 390 T 4 QTc 465 Conclusion Sinus rhythm...normal P axis, V-rate 60- 99 I have reviewed and interpreted ECG and agree with software generated interpretation.
[2025-01-30] MEDS: Albuterol/Ipratropium 3 ML UPD VIAL UPD (13:17)
[2025-01-30 13:19] LABS: Abs Immature Grans 0.04 10^3/uL (0.0-0.06); Absolute Basophil Count 0.03 10^3/uL (0.0-0.2); Absolute Eosinophil Count 0.22 10^3/uL (0.0-0.7); Absolute Lymphocyte Count 1.47 10^3/uL (1.2-3.4); Absolute Monocyte Count 0.94 10^3/uL (0.1-0.8); Absolute Neutrophil Count 7.16 10^3/uL (1.2-6.7); Basophils % 0.3 %; Eosinophils % 2.2 %; HCT 31.6 % (36.0-46.0); HGB 9.4 g/dL (11.2-15.7); Immature Grans % 0.4 %; Lymphocytes % 14.9 %; MCH 21.3 pg (27.0-33.0); MCHC 29.7 % (32.0-36.0); MCV 72 fL (80-95); MPV 9.3 fL (8.0-11.0); Monocytes % 9.5 %; Neutrophils % 72.7 %; Platelet Count 480 10^3/uL (130-400); RBC 4.41 10^6/uL (3.93-5.22); RDW 19.6 % (11.7-14.6); RDW-SD 50.4 fL; WBC 9.86 10^3/uL (4.4-10.8)
[2025-01-30 13:39] LABS: ALT 78 U/L (14-59); AST 54 U/L (15-37); Albumin 2.7 g/dL (3.4-5.0); Alkaline Phosphatase 67 U/L (46-116); Anion Gap 7.2 mmol/L (3-11); BUN 11 mg/dL (7-18); CO2 33.8 mmol/L (21.0-32.0); CREATININE 0.8 mg/dL (0.55-1.02); Calcium 7.8 mg/dL (8.5-10.1); Chloride 99 mmol/L (98-107); Estimated GFR 80.21 (mL/min/1.73m2); Glucose 123 mg/dL (74-106); Magnesium 1.7 mg/dL (1.8-2.4); Potassium 3.1 mmol/L (3.5-5.1); Sodium 140 mmol/L (136-145); Total Protein 7.6 g/dL (6.4-8.2); Troponin I 9 ng/L (<or=51)
[2025-01-30] MEDS: Magnesium Oxide 400 MG TAB PO (13:51)
[2025-01-30] MEDS: Ondansetron 4 MG/2 ML VIAL IVP (13:51)
[2025-01-30] MEDS: Potassium Chloride Liquid 20 MEQ PKT 40 MEQ PO (13:52)
[2025-01-30 14:21] LABS: Anisocytosis 2+; Diff Comment N; Microcytosis 2+
[2025-01-30 14:45] LABS: Troponin I 10 ng/L (<or=51)
--- NOTE | 2025-01-30 15:30 | DI.US_ITS ---
Exam(s) US ABDOMEN LIMITED EXAM: US ABDOMEN LIMITED CLINICAL HISTORY: RUQ pain after eating TECHNIQUE: Ultrasound abdomen performed using standard protocol. COMPARISON: CT CT ABDOMEN PELVIS W from 01/30/2025 FINDINGS: The exam is limited by patient body habitus. The liver, gallbladder, right kidney, common bile duct as well as pancreas are not well visualized. There is no gross evidence of ascites. IMPRESSION: Extremely limited examination. The gallbladder is not well visualized. DATA REPOSITORY:
--- NOTE | 2025-01-30 16:00 | DI.CT_ITS ---
Exam(s) CT ABDOMEN PELVIS W EXAM: CT ABDOMEN PELVIS W CLINICAL HISTORY: RUQ pain. TECHNIQUE: Imaging Protocol: Axial computed tomography images with coronal and sagittal reformatted images were created and reviewed CONTRAST MATERIAL: Intravenous: Omnipaque 350 Contrast volume:100 ml Oral: no COMPARISON: CT CHEST FOR PULMONARY EMBOLUS from 01/10/[address] CHEST PE CTA from 02/27/2024 FINDINGS: ABDOMEN and PELVIS: Exam is limited by patient body habitus. Lung Bases: Dependent changes at the lung bases. Heart is mildly enlarged. Coronary artery calcifications are present. Liver: Enlarged. Normal density. No suspicious mass. Gallbladder and biliary tract: No radiodense calculus. No wall thickening or pericholecystic fluid. No biliary dilation. Pancreas: Normal density. No abnormal calcifications or inflammatory process. No evidence of mass. Spleen: Normal. Kidneys: Normal size, contour and axis. No radiodense stones. No obstructive uropathy. No suspicious masses seen. Adrenal glands: No masses seen. Vasculature: Abdominal aorta non-dilated. Soft tissues: Not fully included on the examination due to body habitus. Small fat containing umbilical hernia. Bladder: No gross wall thickening. No calculi.No focal mass. Bowel: Diverticulosis. No evidence of diverticulitis. No obstruction. No bowel wall thickening. Appendix normal. Peritoneal cavity: No ascites. No focal collection. No mesenteric inflammatory response. No free air. Bones: Chronic appearing mild compression of the L1 superior endplate. Bridging osteophytes at L1-2. Reproductive organs: The uterus is enlarged. An IUD is noted. Lymph nodes: No pathologically enlarged lymph nodes. IMPRESSION:: No acute abnormality in the abdomen or pelvis. Liver is enlarged without focal abnormality. The gallbladder is unremarkable. Diverticulosis without evidence of diverticulitis. RADIATION DOSE DELIVERED: Total DLP DATA REPOSITORY: All CT scans at this facility are submitted to the National Radiology Data Registry (NRDR) Dose Index Registry (DIR) with the [employer] (A[employer]). RADIATION OPTIMIZATION: All CT scans at this facility use at least one of these dose optimization techniques: automated exposure control; mA and/or kV adjustment per patient size (includes targeted exams where dose is matched to clinical indication); or iterative reconstruction.
[2025-01-30] MEDS: Omnipaque 350 MG/ML 100 ML BTL IJ (16:25)
[2025-01-30] MEDS: Normal Saline - Diluent 50 ML VIAL IJ (16:27)
--- NOTE | 2025-01-30 16:31 | DI.VRAD_ITS ---
PROCEDURE INFORMATION: Exam: US Abdomen, Limited; Right Upper Quadrant Exam date and time: 01/30/2025 3:43 PM Age: 69 years old Clinical indication: Abdominal pain; Generalized; Very limited examination due to body habitus TECHNIQUE: Imaging protocol: Real time ultrasound of the abdomen with image documentation. Limited exam focused on the right upper quadrant. COMPARISON: No relevant comparison study. FINDINGS: Limitations: Extremely limited image quality secondary to body habitus. Liver: Extremely limited images of the liver. Poor delineation of the liver architecture for measurement. The contour of the liver and parenchymal density is limited. Gallbladder: Gallbladder is not well seen. Biliary ducts: Biliary ducts are not visualized. Pancreas: Pancreas obscured by bowel gas. Right kidney: The right kidney measures 8.7 cm. Extremely limited visualization of the right kidney parenchyma. Portal venous: The portal vein was not visualized. IMPRESSION: Extremely limited nondiagnostic study of the abdomen by ultrasound. Recommend CT of the abdomen and pelvis. Dictated and Authenticated by: Elisa Figueroa MD. Orderin Adan Lee MD
--- NOTE | 2025-01-30 16:59 | ED.PROG_ITS ---
Date of service: 01/30/25 Time of Service: 17:00 Medical Decision Making Care assumed from Rosa WYLIE pending CT abd pelvis results, on patient re- evaluation she is sleeping with her Cpap machine awakens easily with verbal and saturation 95-97%. Patient is in agreement with discharge plan and reports feeli ng better. Patient discharged in hemodynamically stable condition O2 sat 94% on room air. This text was generated using [employer] dictation system, please disregard any oddities of phrase or misspellings. Medical Records Medical records reviewed: Yes I reviewed the patient's medical records. Lab Data Lab results reviewed: Yes I reviewed the patient's lab results. Quality:SDOH Health Related Social Needs: Health related social needs daily activities Discharge Plan Disposition Patient Disposition: Home Condition: Stable Discharge Details Clinical Impression: Electrolyte disturbance, COPD exacerbation Primary Care Provider: Alphonso Murphy ED Provider: Cindi Fox Home Meds and New Rx's Prescriptions: Continued albuterol sulfate 90 mcg/actuation HFA aerosol inhaler 1 - 2 puff Inhalation Q6H PRN Qty: 1 11RF fluticasone propionate [Flonase Allergy Relief] 50 mcg/actuation spray,suspension 1 spray NS DAILY Qty: 1 8RF potassium chloride [Klor-Con M20] 20 mEq tablet,ER particles/crystals 20 meq PO DAILY Qty: 90 3RF alclometasone 0.05 % cream 1 applic topical BID PRN (Reason: itching) Qty: 45 1RF gabapentin 300 mg capsule 600 mg PO TID PRN levothyroxine 200 mcg tablet 200 mcg PO DAILY Qty: 90 3RF furosemide 80 mg tablet 80 mg PO BID@0830,1600 Qty: 180 3RF ascorbic acid (vitamin C) 1,000 MG tablet 1,000 mg PO DAILY (DME) Aerochamber Mini 1 EACH spacer 1 ea Inhalation PRN Qty: 1 Rx Instructions: DIRECTED WITH INHALER BiPAP Inhalation Gas 5 l IN DIRECTED Rx Instructions: sleep apnea ([facility] sleep lab 2013) uses with oxygen betamethasone, augmented 0.05 % lotion 1 applic topical BID PRN (Reason: allergic reaction) Qty: 60 2RF oxygen Inhalation 3 l Intranasal DIRECTED Patient Comments: Continuous and uses with bipap Rx Instructions: 3L/NC continuous pantoprazole 20 mg tablet,delayed release (DR/EC) 20 mg PO DAILY Qty: 90 3RF Rx Instructions: 04/13/23 Per GI. -hb sertraline 50 mg tablet 50 mg PO DAILY Qty: 90 3RF metolazone 2.5 mg tablet 2.5 mg PO .q tues/frid Qty: 20 2RF ketoconazole 2 % cream 1 applic topical BID PRN (Reason: facial rash) Qty: 60 1RF norethindrone acetate [Gallifrey] 5 mg tablet See Rx Instructions .ROUTE .COMPLEX Qty: 180 1RF Dose Instruction: TAKE TWO TABLETS BY MOUTH TWICE A DAY Rx Instructions: TAKE TWO TABLETS BY MOUTH TWICE A DAY nystatin 100,000 unit/gram powder 1 applic TP BID Qty: 30 5RF BiomePRO 50 billion cell capsule,delayed release(DR/EC) 1 cap PO DAILY Qty: 4 0RF Rx Instructions: Take 3 hours apart form any antibiotics ipratropium-albuterol 0.5 mg-3 mg(2.5 mg base)/3 mL solution for nebulization 3 ml inhalation Q6H PRN (Reason: shortness of breath or wheezing) Qty: 90 0RF spironolactone 25 mg Tablet 25 mg PO DAILY Qty: 30 0RF Jardiance 10 mg Tablet 10 mg PO QAM Qty: 30 0RF prednisone 20 mg tablet 20 mg PO DAILY Qty: 10 0RF Discharge Instructions Instructions: High Potassium Diet, COPD Exacerbation, Adult ED Additional Instructions: At this time CT abd is negative for gallbladder problems. PLease continue your previously prescribed COPD medications and inhalers. Your potassium was low today and magnesium low, please eat a diet high in potassium over the next 2-3 days. Follow up with your PCP in 3-5 days, return sooner if any worsening. Referrals: Alphonso Murphy MD [Primary Care Provider, Medicine] - 1 week Discharge Data Discharge Date/Time-TO BE ENTERED AT DEPARTURE: 01/30/25 17:24
[2025-01-30] MEDS: fentaNYL 100 MCG/2 ML VIAL 50 MCG IVP (17:23)
[2025-01-30] MEDS: Potassium Chloride 20 MEQ TABCR 40 MEQ PO (17:23)
== END 2025-01-30 17:24 | disposition home or self-care (01) ==
PROVIDERS: Physician Assistant; Emergency Provider Registered Nurse Emergency; PCP Family Medicine
DX: E87.8 Other disorders of electrolyte and fluid balance, not elsewhere classified (principal); J44.1 Chronic obstructive pulmonary disease with (acute) exacerbation; E03.9 Hypothyroidism, unspecified; I48.91 Unspecified atrial fibrillation; Z86.711 Personal history of pulmonary embolism; Z99.81 Dependence on supplemental oxygen; Z89.612 Acquired absence of left leg above knee; Z87.891 Personal history of nicotine dependence
CPT/HCPCS: 00123; 36415; 80053; 93005; 94640; 96374; 96375; 99285; 71046; 74177; 76705; 83735; 84484; 85025; 93010; 99284; J2405; J3010; J3490; J7620

== ENCOUNTER 2025-02-01 14:58 | Inpatient (IN) | payer MEDICARE, MEDICAID, SELFPAY ==
[2025-02-01] VITALS (53 sets, daily range): BP systolic 88–152; BP diastolic 19–136; PULSE 63–97; RESP 21–36; TEMP 37.6–38; O2SAT 88–97
--- NOTE | 2025-02-01 14:45 | RT.EKG_ITS ---
APPROVED REPORT Exam: Resting ECG Reason for Exam: dyspnea Patient Location: E HR:92 bpm ECG Measurements Heart Rate 92 AXIS OH 176 P 57 QRSd 102 QRS 71 QT 401 T -19 QTc 497 Conclusion Sinus rhythm, rate 92 Borderline prolonged QTc 497ms No STEMI No significant changes from priors
--- NOTE | 2025-02-01 15:31 | W.ED.GENAD ---
Discharge Plan Disposition Patient Disposition: Admit to [facility] Condition: Improving Discharge Details Clinical Impression: Heart failure with preserved ejection fraction, Acute on chronic hypoxic respiratory failure Primary Care Provider: Alphonso Murphy ED Provider: Leyda Bautista Home Meds and New Rx's Prescriptions: No Action albuterol sulfate 90 mcg/actuation HFA aerosol inhaler 1 - 2 puff Inhalation Q6H PRN Qty: 1 11RF fluticasone propionate [Flonase Allergy Relief] 50 mcg/actuation spray,suspension 1 spray NS DAILY Qty: 1 8RF potassium chloride [Klor-Con M20] 20 mEq tablet,ER particles/crystals 20 meq PO DAILY Qty: 90 3RF alclometasone 0.05 % cream 1 applic topical BID PRN (Reason: itching) Qty: 45 1RF gabapentin 300 mg capsule 600 mg PO TID PRN levothyroxine 200 mcg tablet 200 mcg PO DAILY Qty: 90 3RF furosemide 80 mg tablet 80 mg PO BID@0830,1600 Qty: 180 3RF ascorbic acid (vitamin C) 1,000 MG tablet 1,000 mg PO DAILY (DME) Aerochamber Mini 1 EACH spacer 1 ea Inhalation PRN Qty: 1 Rx Instructions: DIRECTED WITH INHALER BiPAP Inhalation Gas 5 l IN DIRECTED Rx Instructions: sleep apnea ([facility] sleep lab 2012) uses with oxygen betamethasone, augmented 0.05 % lotion 1 applic topical BID PRN (Reason: allergic reaction) Qty: 60 2RF oxygen Inhalation 3 l Intranasal DIRECTED Patient Comments: Continuous and uses with bipap Rx Instructions: 3L/NC continuous pantoprazole 20 mg tablet,delayed release (DR/EC) 20 mg PO DAILY Qty: 90 3RF Rx Instructions: 04/13/23 Per GI. -hb sertraline 50 mg tablet 50 mg PO DAILY Qty: 90 3RF metolazone 2.5 mg tablet 2.5 mg PO .q tu/frid Qty: 20 2RF ketoconazole 2 % cream 1 applic topical BID PRN (Reason: facial rash) Qty: 60 1RF norethindrone acetate [Gallifrey] 5 mg tablet See Rx Instructions .ROUTE .COMPLEX Qty: 180 1RF Dose Instruction: TAKE TWO TABLETS BY MOUTH TWICE A DAY Rx Instructions: TAKE TWO TABLETS BY MOUTH TWICE A DAY nystatin 100,000 unit/gram powder 1 applic TP BID Qty: 30 5RF BiomePRO 50 billion cell capsule,delayed release(DR/EC) 1 cap PO DAILY Qty: 4 0RF Rx Instructions: Take 3 hours apart form any antibiotics ipratropium-albuterol 0.5 mg-3 mg(2.5 mg base)/3 mL solution for nebulization 3 ml inhalation Q6H PRN (Reason: shortness of breath or wheezing) Qty: 90 0RF spironolactone 25 mg Tablet 25 mg PO DAILY Qty: 30 0RF Jardiance 10 mg Tablet 10 mg PO QAM Qty: 30 0RF prednisone 20 mg tablet 20 mg PO DAILY Qty: 10 0RF HPI General Mode of arrival: wheelchair. Date/Time Provider Initiated Documentation: 02/01/25 15:20. Limitations to Documentation: no limitations. Information obtained by: patient and old records reviewed. HPI Narrative: This is a 69-year-old female patient with a history of COPD, CHF, DAVID, and history of hypoxic respiratory failure, on 2 L of oxygen at baseline, who is presenting for evaluation of shortness of breath. The patient was seen here yesterday for shortness of breath and right upper quadrant abdominal pain, had a reassuring workup at that time with normal CT of the abdomen and pelvis. She returns to care for worsening of her symptoms. She reports that her shortness of breath has been worse for the last 4 days. She has been using her inhalers without adequate effect. She has noted worsening of her lower extremity swelling. She states that she is making urine adequately with no dysuria or decreased urinary output. Denies chest pain Related Data Home Medications ?Medication ?Instructions ?Recorded ?Confirmed ascorbic acid (vitamin C) 1,000 mg 1,000 mg PO DAILY 11/25/12 01/31/25 tablet inhalational spacing device ##1 12/21/13 01/31/25 (Aerochamber Mini) Bipap 5 l IN DIRECTED 07/23/14 01/31/25 betamethasone, augmented 0.05 % 1 applic topical BID PRN allergic 06/20/21 01/31/25 lotion reaction #60 mL oxygen 3 l intranasal DIRECTED 04/02/24 01/31/25 L. acidophilus,casei,rhamnosus 50 1 cap PO DAILY #4 caps 06/04/24 01/31/25 billion cell capsule,delayed release (BiomePRO) nystatin 100,000 unit/gram topical 1 applic topical BID intertrigo 06/04/24 01/31/25 powder #30 grams albuterol sulfate 90 mcg/actuation 1 - 2 puff inhalation Q6H PRN ##1 07/17/24 01/31/25 aerosol inhaler fluticasone propionate 50 1 spray NS DAILY ##1 07/17/24 01/31/25 mcg/actuation nasal spray,suspension (Flonase Allergy Relief) potassium chloride 20 mEq 20 meq PO DAILY #90 tabs 07/17/24 01/31/25 tablet,extended release(part/cryst) (Klor-Con M) pantoprazole 20 mg tablet,delayed 20 mg PO DAILY #90 tabs 07/26/24 01/31/25 release sertraline 50 mg tablet 50 mg PO DAILY #90 tabs 07/26/24 01/31/25 gabapentin 300 mg capsule 600 mg PO TID PRN 10/11/24 01/31/25 ipratropium 0.5 mg-albuterol 3 mg 3 ml inhalation Q6H PRN shortness 11/19/24 01/31/25 (2.5 mg base)/3 mL nebulization of breath or wheezing #90 mL soln alclometasone 0.05 % topical cream 1 applic topical BID PRN itching 11/20/24 01/31/25 #45 grams empagliflozin 10 mg tablet 10 mg PO QAM #30 tabs 12/02/24 01/31/25 (Jardiance) prednisone 20 mg tablet 20 mg PO DAILY #10 tabs 12/02/24 01/31/25 spironolactone 25 mg tablet 25 mg PO DAILY #30 tabs 12/02/24 01/31/25 metolazone 2.5 mg tablet 2.5 mg PO .q tues/frid #20 tabs 12/08/24 01/31/25 ketoconazole 2 % topical cream 1 applic topical BID PRN facial 12/19/24 01/31/25 rash #60 grams norethindrone acetate 5 mg tablet See Rx Instructions .Route 12/31/24 01/31/25 (Baldemarrey) .COMPLEX #180 tabs furosemide 80 mg tablet 80 mg PO BID@0830,1600 #180 tabs 01/10/25 01/31/25 levothyroxine 200 mcg tablet 200 mcg PO DAILY #90 tabs 01/10/25 01/31/25 Previous Rx's ?Medication ?Instructions ?Recorded betamethasone, augmented 0.05 % 1 applic topical BID PRN allergic 06/20/21 lotion reaction #60 mL L. acidophilus,casei,rhamnosus 50 1 cap PO DAILY #4 caps 06/04/24 billion cell capsule,delayed release (BiomePRO) nystatin 100,000 unit/gram topical 1 applic topical BID intertrigo 06/04/24 powder #30 grams albuterol sulfate 90 mcg/actuation 1 - 2 puff inhalation Q6H PRN ##1 07/17/24 aerosol inhaler fluticasone propionate 50 1 spray NS DAILY ##1 07/17/24 mcg/actuation nasal spray,suspension (Flonase Allergy Relief) potassium chloride 20 mEq 20 meq PO DAILY #90 tabs 07/17/24 tablet,extended release(part/cryst) (Klor-Con M) pantoprazole 20 mg tablet,delayed 20 mg PO DAILY #90 tabs 07/26/24 release sertraline 50 mg tablet 50 mg PO DAILY #90 tabs 07/26/24 ipratropium 0.5 mg-albuterol 3 mg 3 ml inhalation Q6H PRN shortness 11/19/24 (2.5 mg base)/3 mL nebulization of breath or wheezing #90 mL soln alclometasone 0.05 % topical cream 1 applic topical BID PRN itching 11/20/24 #45 grams empagliflozin 10 mg tablet 10 mg PO QAM #30 tabs 12/02/24 (Jardiance) prednisone 20 mg tablet 20 mg PO DAILY #10 tabs 12/02/24 spironolactone 25 mg tablet 25 mg PO DAILY #30 tabs 12/02/24 metolazone 2.5 mg tablet 2.5 mg PO .q tu/frid #20 tabs 12/08/24 ketoconazole 2 % topical cream 1 applic topical BID PRN facial 12/19/24 rash #60 grams norethindrone acetate 5 mg tablet See Rx Instructions .Route 12/31/24 (Gallifrey) .COMPLEX #180 tabs furosemide 80 mg tablet 80 mg PO BID@0830,1600 #180 tabs 01/10/25 levothyroxine 200 mcg tablet 200 mcg PO DAILY #90 tabs 01/10/25 Allergies Allergy/AdvReac Type Severity Reaction Status Date / Time hydrocodone Allergy Severe ITCHING Verified 01/30/25 12:26 morphine Allergy Mild PRURITIS Verified 01/30/25 12:26 oxycodone Allergy Mild ITCHING Verified 01/30/25 12:26 General Stated Complaint: SOB REUBEN: 2 Exam Narrative Exam Narrative: Gen: Awake and alert, in acute respiratory distress HEENT: Non-icteric sclera Neck: Supple Lungs: Tachypnea and increased work of breathing, diminished lung sounds bilaterally, limited by patient habitus CV: Appears well perfused, heart with borderline tachycardic rate greater than 90 but regular rhythm, strong distal pulses Abdomen: Non-distended, soft MSK: Status post left AKA, right lower extremity with 2+ peripheral edema Skin: Visualized skin without rashes, cyanosis. Neuro: No obvious focal deficits or facial asymmetry. Speaks in full, clear sentences. Psych: Appropriate for situation. Course Vital Signs Vital signs: Vital Signs Temperature 38.0 C H 02/01/25 15:27 Pulse 92 H 02/01/25 15:27 Respiratory Rate 36 H 02/01/25 15:27 Blood Pressure 150/78 H 02/01/25 15:27 Pulse Oximetry 92 02/01/25 15:27 Temperature 38.0 C H 02/01/25 15:27 Temperature Source Tympanic 02/01/25 15:27 Pulse 92 H 02/01/25 15:27 Respiratory Rate 36 H 02/01/25 15:27 Blood Pressure 150/78 H 02/01/25 15:27 Pulse Oximetry 92 02/01/25 15:27 Oxygen Delivery Method OxyMask 02/01/25 15:27 Oxygen Flow Rate 2 02/01/25 15:27 Medical Decision Making This is a 69-year-old female patient presenting for evaluation of shortness of breath and hypoxia. My differential includes but is not limited to heart failure exacerbation, COPD exacerbation, pneumonia, bronchitis, viral URI. Considered pneumothorax, pleural effusion, anemia, metabolic electrolyte derangements. Considered sepsis and bacteremia in this patient with a low-grade fever and heart rate greater than 90 with tachypnea. She is reassuringly without low blood pressure to suggest septic shock. We will obtain a broad laboratory workup to include CBC, CMP, magnesium, troponin, BNP, lactate, and blood cultures. I will provide the patient with a dose of ceftriaxone for her fever of unknown origin, likely pulmonary. Will obtain a viral swab, and a chest x-ray. -The patient was ultimately stabilized on 4 L/min of oxygen (baseline 2 L) through her home CPAP machine. EKG reviewed by myself and shows no acute ischemic changes, no significant changes compared to priors. I reviewed the patient's laboratory studies. She has no leukocytosis, but does have a worsening anemia, 8.4 today down from 9.4 a few days ago, with no reported nidus of bleeding such as hematochezia, hematemesis. Should certainly be trended in the inpatient environment. Blood gas with no acidosis or hypercarbia, lactate 1.1. metabolic panel significant for a slightly low potassium to 3.2, repleted orally. Kidney function baseline, low calcium of 7.5 which has been demonstrated on prior laboratory studies. She does have a transaminitis and a slightly increased bilirubin, which could be due to hepatic congestion in the setting of her presumed heart failure exacerbation. Initial troponin negative, BNP is low, but the patient's habitus may limit the accuracy/interpretation of this lab. Fluvid negative. I reviewed the patient's chest x-ray, and note evidence for pulmonary vascular congestion concerning for CHF. In the setting of her increasing oxygen requirement I do feel it is reasonable to diurese her, 80 mg of intravenous Lasix was provided and a Schmitt catheter was placed. I reached out to the hospitalist service who is graciously accepted this patient for admission to their service. She remained hemodynamically improved while under my care and was transferred to their team without incident. Leyda Bautista MD Quality:SDOH Health Related Social Needs: Health related social needs daily activities Critical Care Time Critical Care Time Critical Care Time: Yes Total Critical Care Time: 35 Attestation: Upon my evaluation, this patient had a high probability of imminent or life-threatening deterioration due to acute hypoxic respiratory failure in the setting of heart failure exacerbation, which required my direct attention, intervention, and personal management. I have personally provided 35 minutes of critical care time exclusive of time spent on separately billable procedures. Time includes review of laboratory data, radiology results, discussion with consultants, and monitoring for potential decompensation. Interventions were performed as documented above. Leyda Bautista MD [facility] All Active Problems (Updated 02/01/25 @ 18:02 by Leyda Bautista MD) COPD exacerbation (Acute) Electrolyte disturbance (Acute) Acute on chronic hypoxic respiratory failure (Acute) Left above-knee amputee (Acute) On deep vein thrombosis (DVT) prophylaxis (Acute) Advanced care planning/counseling discussion (Acute) Elevated liver enzymes (Acute) Exertional shortness of breath (Acute) Heart failure with preserved ejection fraction (Acute) Wound dehiscence (Acute) Thickened endometrium (Acute) Postmenopausal bleeding (Acute) Venous stasis dermatitis (Acute) Chronic headaches (Chronic) Recent Neurology consult for possible papilledema. Urinary incontinence (Chronic) On Detrol Recurrent UTI (Chronic) Right ventricular dysfunction (Chronic) Knee pain, bilateral (Chronic 07/23/14) s/p bilat TKR (left infected with mult surg and decreased mobility) Morbid obesity (Acute 04/05/13) Sensorineural hearing loss, bilateral (Chronic 08/29/13) Advance directive on file (Acute) Low back pain with sciatica (Chronic 05/03/14) CT at [facility] L34 spinal stenosis Varicose veins of lower extremity (Chronic) Depression (Chronic) Grief at loss of child (Acute) Mixed conductive and sensorineural hearing loss of both ears (Acute) Right carpal tunnel syndrome (Acute) Arthritis of right hand (Acute) Impingement of right ulnar nerve (Acute) Dermoid cyst of neck (Acute) Microcalcifications of the breast (Acute) Neuropathy of left hand (Acute) Neuropathy of right hand (Acute) Bilateral carpal tunnel syndrome (Acute) Medical History Palliative care patient CHF (congestive heart failure) Atrial fibrillation COPD (chronic obstructive pulmonary disease) Hx pulmonary embolism (~2015) treated with lovenox x 3 months GERD (gastroesophageal reflux disease) had negative barium esophagram in 11/2022. Anxiety Lymphedema Hypothyroidism DAVID (obstructive sleep apnea) on BiPap Chronic respiratory failure with hypoxia and hypercapnia home BiPap Surgical History S/P AKA (above knee amputation) (~09/2024) Status post thyroidectomy History of fasciotomy Replacement of total knee joint Bilateral; left-became [id number] surgeries Fasciotomy, Foot (~1996) LEFT History of Surgical Procedure a. Right and left toal knee replacements. b. Left knee has been repeatedly operated on with slava surgies, three replacements. Family History Mother Diabetes Personal history of malignant neoplasm LUNG Father Personal history of malignant neoplasm BRAIN Grandfather No problems noted. Grandfather No problems noted. Grandmother No problems noted. Grandmother No problems noted. Social History (Updated 11/28/24 @ 21:52 by Brandan Hicks) Smoking/Tobacco Use Status: Former Tobacco Use tobacco type: cigarettes Quit Date: 01/21/21 Second Hand Exposure: Yes Smoking risk assessment performed?: Yes Alcohol Intake: never Drug use: Never Substance use type: does not use Counseling given: No Housing: apartment Communication Needs: Hard of Hearing and Corrective Lenses Pets and animals: Yes Pets and animals: cat(s) Sexually active: Yes Current gender identity: female What is your relationship status?: never How often do you talk on the phone with friends or family?: decline to answer How often do you get together with friends or relatives?: decline to answer How often do you attend taoist or restoration services?: decline to answer Do you belong to any clubs or organized social groups?: no Panel score (0-1 are the most socially isolated patients): 0 Seatbelt use: never Do you feel safe at home: Yes Do you feel safe in your relationship?: Yes Additional Social history: Lives in her own apartment in [facility], uses electric scooter
[2025-02-01] MEDS: cefTRIAXone 1 GM/50 ML BAG IVPB (16:23)
[2025-02-01 16:26] LABS: BE (Venous) 9 mmol/L (-2-3); HCO3 (Venous) 33 mmol/L (23-28); O2 Sat (Venous) 66 %; TCO2 (Venous) 31 mmol/L (24-29); pCO2 (Venous) 46 mmHg (41-51); pH (Venous) 7.46 (7.31-7.41); pO2 (Venous) 35 mmHg
[2025-02-01 16:30] LABS: Lactate 1.1 mmol/L (<or=2.0)
[2025-02-01 16:34] LABS: Abs Immature Grans 0.04 10^3/uL (0.0-0.06); Absolute Basophil Count 0.06 10^3/uL (0.0-0.2); Absolute Eosinophil Count 0.17 10^3/uL (0.0-0.7); Absolute Lymphocyte Count 1.55 10^3/uL (1.2-3.4); Absolute Monocyte Count 1.11 10^3/uL (0.1-0.8); Basophils % 0.6 %; Eosinophils % 1.6 %; HCT 28.4 % (36.0-46.0); HGB 8.4 g/dL (11.2-15.7); Immature Grans % 0.4 %; Lymphocytes % 14.7 %; MCH 21.1 pg (27.0-33.0); MCHC 29.6 % (32.0-36.0); MCV 71 fL (80-95); MPV 9.5 fL (8.0-11.0); Monocytes % 10.5 %; Neutrophils % 72.2 %; Platelet Count 462 10^3/uL (130-400); RBC 3.98 10^6/uL (3.93-5.22); RDW 19.4 % (11.7-14.6); RDW-SD 49.3 fL; WBC 10.53 10^3/uL (4.4-10.8)
--- NOTE | 2025-02-01 16:41 | DI.RAD_ITS ---
Exam(s) XR PORTABLE CHEST AP EXAM: XR PORTABLE CHEST AP CLINICAL HISTORY: SOB, hx CHF and COPD TECHNIQUE: 2D digital imaging was performed of the chest. One image was obtained. An AP view was obtained. COMPARISON: CR XR CHEST 2V PA LATERAL from 11/28/2024 CR XR CHEST 2V PA LATERAL from 01/30/2025 FINDINGS: MEDIASTINUM: Normal. HEART: Cardiomegaly. PULMONARY VASCULATURE: Pulmonary venous congestion. LUNGS: Bilateral interstitial infiltrates are seen likely reflecting pulmonary edema. No focal consolidating infiltrates are seen. PLEURAL SPACE: No pleural effusion or pneumothorax. BONE:Within normal limits for the patient's age. OTHER FINDINGS:Normal. IMPRESSION: Findings suggestive of congestive heart failure. DATA REPOSITORY: RADIATION DOSE DELIVERED:
[2025-02-01 16:54] LABS: ALT 84 U/L (14-59); AST 51 U/L (15-37); Albumin 2.6 g/dL (3.4-5.0); Alkaline Phosphatase 62 U/L (46-116); Anion Gap 6.8 mmol/L (3-11); BUN 12 mg/dL (7-18); Bilirubin, Total 1.4 mg/dL (0.2-1.0); CO2 33.2 mmol/L (21.0-32.0); CREATININE 0.8 mg/dL (0.55-1.02); Calcium 7.5 mg/dL (8.5-10.1); Chloride 98 mmol/L (98-107); Estimated GFR 80.21 (mL/min/1.73m2); Glucose 98 mg/dL (74-106); Magnesium 1.8 mg/dL (1.8-2.4); NT-proBNP 280 pg/mL (<300); Potassium 3.2 mmol/L (3.5-5.1); Sodium 138 mmol/L (136-145); Total Protein 7.4 g/dL (6.4-8.2); Troponin I 9 ng/L (<or=51)
[2025-02-01 17:04] LABS: COVID-19 PCR Negative (Negative); Influenza A PCR Negative (Negative); Influenza B PCR Negative (Negative); RSV PCR Negative (Negative)
[2025-02-01 17:11] LABS: Diff Comment RBC Morph Reviewed; Hypochromasia 1+; Microcytosis 1+
[2025-02-01] MEDS: Potassium Chloride 20 MEQ TABCR 40 MEQ PO (17:23)
[2025-02-01] MEDS: Furosemide 100 MG/10 ML VIAL 80 MG IVP (17:27)
[2025-02-01 17:33] LABS: Source Nasopharynx
--- NOTE | 2025-02-01 18:10 | W.PM.HP.N ---
Date of service: 02/01/25 Time of Service: 18:10 Assessment and Plan Assessment and plan (1) Heart failure with preserved ejection fraction: Status: Acute Assessment and plan: Will continue with medical management but will increase Lasix to 80 mg IV Q8 3 times daily. Patient's home medications include Lasix metolazone Aldactone Jardiance but has not seen an TONE inhibitor so we will add this as well. Daily weights monitor for improvement (2) CHF (congestive heart failure): Assessment and plan: As above (3) Palliative care patient: Assessment and plan: Will place palliative care consult (4) Morbid obesity: Status: Acute Assessment and plan: There is some concern about hypoventilation syndrome considering her body habitus (5) Left above-knee amputee: Status: Acute Assessment and plan: Noted (6) Chronic respiratory failure with hypoxia and hypercapnia: Assessment and plan: Noted History of Present Illness History of Present Illness Chief Complaint: SOB Narrative: This is a 69-year-old female who is a fairly regular [employer] healthcare system who was last admitted in November of this year for CHF exacerbation. Patient was seen in the ED yesterday for shortness of breath but was discharged home, came back today with worsening symptomology including tachypnea and worsening hypoxia and was subsequently admitted to the hospital service for further evaluation and treatment. Upon my discussion with Mrs. Masterson she states she continues take her medication as prescribed has no change in her diet. She does endorse worsening shortness of breath over the last 48 hours or so. Workup in the ED included a VBG CBC CMP and LFTs. She does have some mild anemia as well as mild hypokalemia and transaminitis. She does have a respiratory rate of over 30 and satting 92% on 4 L. She does use oxygen at home but is not usually on 2 L nasal cannula. Triple viral screen was negative. Chest x-ray was indicative of pneumonia. Do not see any EKG at this point. Review of Systems All systems reviewed & are unremarkable except as noted in HPI and below PFSH All Active Problems (Updated 02/01/25 @ 18:02 by Leyda Bautista MD) COPD exacerbation (Acute) Electrolyte disturbance (Acute) Acute on chronic hypoxic respiratory failure (Acute) Left above-knee amputee (Acute) On deep vein thrombosis (DVT) prophylaxis (Acute) Advanced care planning/counseling discussion (Acute) Elevated liver enzymes (Acute) Exertional shortness of breath (Acute) Heart failure with preserved ejection fraction (Acute) Wound dehiscence (Acute) Thickened endometrium (Acute) Postmenopausal bleeding (Acute) Venous stasis dermatitis (Acute) Chronic headaches (Chronic) Recent Neurology consult for possible papilledema. Urinary incontinence (Chronic) On Detrol Recurrent UTI (Chronic) Right ventricular dysfunction (Chronic) Knee pain, bilateral (Chronic 07/23/14) s/p bilat TKR (left infected with mult surg and decreased mobility) Morbid obesity (Acute 04/05/13) Sensorineural hearing loss, bilateral (Chronic 08/29/13) Advance directive on file (Acute) Low back pain with sciatica (Chronic 05/03/14) CT at [facility] [place] L34 [place] stenosis Varicose veins of lower extremity (Chronic) Depression (Chronic) Grief at loss of child (Acute) Mixed conductive and sensorineural hearing loss of both ears (Acute) Right carpal tunnel syndrome (Acute) Arthritis of right hand (Acute) Impingement of right ulnar nerve (Acute) Dermoid cyst of neck (Acute) Microcalcifications of the breast (Acute) Neuropathy of left hand (Acute) Neuropathy of right hand (Acute) Bilateral carpal tunnel syndrome (Acute) Medical History Palliative care patient CHF (congestive heart failure) Atrial fibrillation COPD (chronic obstructive pulmonary disease) Hx pulmonary embolism (~2015) treated with lovenox x 3 months GERD (gastroesophageal reflux disease) had negative barium esophagram in 11/2022. Anxiety Lymphedema Hypothyroidism DAVID (obstructive sleep apnea) on BiPap Chronic respiratory failure with hypoxia and hypercapnia home BiPap Surgical History S/P AKA (above knee amputation) (~09/2024) Status post thyroidectomy History of fasciotomy Replacement of total knee joint Bilateral; left-became quiozjer-qwrqajo-lmyjofjp surgeries Fasciotomy, Foot (~1996) LEFT History of Surgical Procedure a. Right and left toal knee replacements. b. Left knee has been repeatedly operated on with slava surgies, three replacements. Family History Mother Diabetes Personal history of malignant neoplasm LUNG Father Personal history of malignant neoplasm BRAIN Grandfather No problems noted. Grandfather No problems noted. Grandmother No problems noted. Grandmother No problems noted. Social History (Updated 11/28/24 @ 21:52 by Brandan Hicks) Smoking/Tobacco Use Status: Former Tobacco Use tobacco type: cigarettes Quit Date: 01/21/21 Second Hand Exposure: Yes Smoking risk assessment performed?: Yes Alcohol Intake: never Drug use: Never Substance use type: does not use Counseling given: No Housing: apartment Communication Needs: Hard of Hearing and Corrective Lenses Pets and animals: Yes Pets and animals: cat(s) Sexually active: Yes Current gender identity: female What is your relationship status?: never How often do you talk on the phone with friends or family?: decline to answer How often do you get together with friends or relatives?: decline to answer How often do you attend gnosticism or scientology services?: decline to answer Do you belong to any clubs or organized social groups?: no Panel score (0-1 are the most socially isolated patients): 0 Seatbelt use: never Do you feel safe at home: Yes Do you feel safe in your relationship?: Yes Additional Social history: Lives in her own apartment in [facility], uses [employer] Allergies and Home Medications Allergies Allergy/AdvReac Type Severity Reaction Status Date / Time hydrocodone Allergy Severe ITCHING Verified 01/30/25 12:26 morphine Allergy Mild PRURITIS Verified 01/30/25 12:26 oxycodone Allergy Mild ITCHING Verified 01/30/25 12:26 Home Medications ?Medication ?Instructions ?Recorded ?Confirmed ?Type ascorbic acid (vitamin C) 1,000 mg 1,000 mg PO DAILY 11/25/12 01/31/25 History tablet inhalational spacing device ##1 12/21/13 01/31/25 History (Aerochamber Mini) Bipap 5 l IN DIRECTED 07/23/14 01/31/25 History betamethasone, augmented 0.05 % 1 applic topical BID PRN allergic 06/20/21 01/31/25 Rx lotion reaction #60 mL oxygen 3 l intranasal DIRECTED 04/02/24 01/31/25 History L. acidophilus,casei,rhamnosus 50 1 cap PO DAILY #4 caps 06/04/24 01/31/25 Rx billion cell capsule,delayed release (BiomePRO) nystatin 100,000 unit/gram topical 1 applic topical BID intertrigo 06/04/24 01/31/25 Rx powder #30 grams albuterol sulfate 90 mcg/actuation 1 - 2 puff inhalation Q6H PRN ##1 07/17/24 01/31/25 Rx aerosol inhaler fluticasone propionate 50 1 spray NS DAILY ##1 07/17/24 01/31/25 Rx mcg/actuation nasal spray,suspension (Flonase Allergy Relief) potassium chloride 20 mEq 20 meq PO DAILY #90 tabs 07/17/24 01/31/25 Rx tablet,extended release(part/cryst) (Klor-Con M) pantoprazole 20 mg tablet,delayed 20 mg PO DAILY #90 tabs 07/26/24 01/31/25 Rx release sertraline 50 mg tablet 50 mg PO DAILY #90 tabs 07/26/24 01/31/25 Rx gabapentin 300 mg capsule 600 mg PO TID PRN 10/11/24 01/31/25 History ipratropium 0.5 mg-albuterol 3 mg 3 ml inhalation Q6H PRN shortness 11/19/24 01/31/25 Rx (2.5 mg base)/3 mL nebulization of breath or wheezing #90 mL soln alclometasone 0.05 % topical cream 1 applic topical BID PRN itching 11/20/24 01/31/25 Rx #45 grams empagliflozin 10 mg tablet 10 mg PO QAM #30 tabs 12/02/24 01/31/25 Rx (Jardiance) prednisone 20 mg tablet 20 mg PO DAILY #10 tabs 12/02/24 01/31/25 Rx spironolactone 25 mg tablet 25 mg PO DAILY #30 tabs 12/02/24 01/31/25 Rx metolazone 2.5 mg tablet 2.5 mg PO .q tu/frid #20 tabs 12/08/24 01/31/25 Rx ketoconazole 2 % topical cream 1 applic topical BID PRN facial 12/19/24 01/31/25 Rx rash #60 grams norethindrone acetate 5 mg tablet See Rx Instructions .Route 12/31/24 01/31/25 Rx (Gallifrey) .COMPLEX #180 tabs furosemide 80 mg tablet 80 mg PO BID@0830,1600 #180 tabs 01/10/25 01/31/25 Rx levothyroxine 200 mcg tablet 200 mcg PO DAILY #90 tabs 01/10/25 01/31/25 Rx Exam Narrative Exam Narrative: HEENT-normal cephalic atraumatic high flow in place Neck-no lymphadenopathy no JVD no thyromegaly Cardiovascular-distant heart sounds but no murmur rubs or gallops Pulm-bilateral crackles and wheeze with expiration mild accessory muscle use can speak in short sentences only Abdomen-protuberant bowel sounds active Extremities-left AKA and right with 2+ pitting edema Neurologic-cranial nerves II through XII intact as tested reflexes normal EXTR normal as tested Psych-mild distress but alert and oriented x 3 can give a linear history Results Labs 02/01/25 16:16 02/01/25 16:16 Labs: Laboratory Results - last 24 hr 02/01/25 02/01/25 16:16 16:20 WBC 10.53 RBC 3.98 Hgb 8.4 L Hct 28.4 L MCV 71 L MCH 21.1 L MCHC 29.6 L RDW 19.4 H Plt Count 462 H MPV 9.5 Immature Gran % 0.4 Neutrophils % 72.2 Lymphocytes % 14.7 Monocytes % 10.5 Eosinophils % 1.6 Basophils % 0.6 Nucleated RBC % 0.0 Absolute Neutrophils 7.60 H Absolute Lymphocytes 1.55 Absolute Monocytes 1.11 H Absolute Eosinophils 0.17 Absolute Basophils 0.06 RBC Morphology See Below Hypochromasia 1+ Microcytosis 1+ VBG pH 7.46 H VBG pCO2 46 VBG pO2 35 VBG HCO3 33 H VBG Total CO2 31 H VBG O2 Saturation 66 VBG Base Excess 9 H VBG Lactate 1.1 Sodium 138 Potassium 3.2 L Chloride 98 Carbon Dioxide 33.2 H Anion Gap 6.8 BUN 12 Creatinine 0.8 Est GFR (CKD-EPI 2020) 80.21 Glucose 98 Calcium 7.5 L Magnesium 1.8 Total Bilirubin 1.4 H AST 51 H ALT 84 H Alkaline Phosphatase 62 Troponin I 9 NT-Pro-B Natriuret Pep 280 Total Protein 7.4 Albumin 2.6 L COVID-19 Source Nasopharynx SARS-CoV-2 (PCR) Negative Influenza Type A (PCR) Negative Influenza Type B (PCR) Negative RSV (PCR) Negative Last Vital Signs Temp 38.0 C H 02/01/25 15:27 Pulse 92 H 02/01/25 15:27 Resp 30 H 02/01/25 16:38 BP 107/61 02/01/25 16:38 Pulse Ox 94 02/01/25 17:51 Time Spent Time spent with Patient: <40 minutes Time was spent: preparing to see the patient(eg.review tests), obtaining and/or reviewing separately otained hiistory, ordering medications,tests, procedures, referring, communicating with other health resident care aid, indepentently interpreting results, counseling the patient and care coordination
[2025-02-01 18:37] LABS: Troponin I 10 ng/L (<or=51)
[2025-02-01] MEDS: Enoxaparin 40 MG/0.4 ML SYR SC (19:27)
[2025-02-01 19:47] LABS: Troponin I 9 ng/L (<or=51)
--- NOTE | 2025-02-01 21:12 | W.PC.ACHO ---
Registration Status: ADM IN Primary Language: Preferred Language: French ED Information & Data Chief Complaint SOB 02/01/25 16:06 Chief Complaint SOB 02/01/25 15:31 Triage Note patient presents with severe 02/01/25 15:27 sob. Medical / Surgical History (Last Reviewed 11/28/24 @ 21:51 by Brandan Hicks) Palliative care patient Hypothyroidism DAVID (obstructive sleep apnea) Chronic respiratory failure with hypoxia and hypercapnia Anxiety GERD (gastroesophageal reflux disease) COPD (chronic obstructive pulmonary disease) Atrial fibrillation CHF (congestive heart failure) Lymphedema Hx pulmonary embolism (~2015) (Last Reviewed 11/28/24 @ 21:51 by Brandan Hicks) S/P AKA (above knee amputation) (~09/2024) Status post thyroidectomy History of fasciotomy History of Surgical Procedure Replacement of total knee joint Fasciotomy, Foot (~1996) Most Recent Vital Signs Temperature 38.0 C H 02/01/25 15:27 Temperature Source Tympanic 02/01/25 15:27 Pulse 85 02/01/25 19:50 Pulse 85 02/01/25 19:50 Respiratory Rate 28 H 02/01/25 19:50 Respiratory Effort Short of Breath, Labored, Accessory Muscle Use, Pursed Lip, Incrsd Work of Breathing 02/01/25 16:38 Respiratory Depth Shallow 02/01/25 16:38 Respiratory Pattern Tachypnea 02/01/25 16:38 Blood Pressure 113/56 L 02/01/25 19:46 Blood Pressure Mean 73 02/01/25 19:46 Pulse Oximetry 94 02/01/25 19:50 Oxygen Delivery Method OxyMask 02/01/25 17:51 Oxygen Flow Rate 4 02/01/25 17:51 Allergies hydrocodone Allergy (Severe, Verified 01/30/25 12:26) ITCHING morphine Allergy (Mild, Verified 01/30/25 12:26) PRURITIS oxycodone Allergy (Mild, Verified 01/30/25 12:26) ITCHING IV IV Catheter Type [Left Forearm Peripheral IV ] IV Catheter Gauge [Left 20 Forearm] Diet Orders Category Date Time Status Low Sodium [DIET] Nutrition 02/01/25 Dinner Active Diagnostics 02/01/25 02/01/25 02/01/25 Range/Units 19:23 17:09 16:20 WBC (4.4-10.8) 10^3/uL RBC (3.93-5.22) 10^6/uL Hgb (11.2-15.7) g/dL Hct (36.0-46.0) % MCV (80-95) fL MCH (27.0-33.0) pg MCHC (32.0-36.0) % RDW (11.7-14.6) % Plt Count (130-400) 10^3/uL MPV (8.0-11.0) fL Immature Gran % % Neutrophils % % Lymphocytes % % Monocytes % % Eosinophils % % Basophils % % Nucleated RBC % (0.0-0.3) % Absolute Neutrophils (1.2-6.7) 10^3/uL Absolute Lymphocytes (1.2-3.4) 10^3/uL Absolute Monocytes (0.1-0.8) 10^3/uL Absolute Eosinophils (0.0-0.7) 10^3/uL Absolute Basophils (0.0-0.2) 10^3/uL RBC Morphology Hypochromasia Microcytosis VBG pH (7.31-7.41) VBG pCO2 (41-51) mmHg VBG pO2 mmHg VBG HCO3 (23-28) mmol/L VBG Total CO2 (24-29) mmol/L VBG O2 Saturation % VBG Base Excess (-2-3) mmol/L VBG Lactate (<or=2.0) mmol/L Sodium (136-145) mmol/L Potassium (3.5-5.1) mmol/L Chloride (98-107) mmol/L Carbon Dioxide (21.0-32.0) mmol/L Anion Gap (3-11) mmol/L BUN (7-18) mg/dL Creatinine (0.55-1.02) mg/dL Est GFR (CKD-EPI 2020) (mL/min/1.73m2) Glucose (74-106) mg/dL Calcium (8.5-10.1) mg/dL Magnesium (1.8-2.4) mg/dL Total Bilirubin (0.2-1.0) mg/dL AST (15-37) U/L ALT (14-59) U/L Alkaline Phosphatase (46-116) U/L Troponin I 9 10 (<or=51) ng/L NT-Pro-B Natriuret Pep (<300) pg/mL Total Protein (6.4-8.2) g/dL Albumin (3.4-5.0) g/dL COVID-19 Source Nasopharynx SARS-CoV-2 (PCR) Negative (Negative) Influenza Type A (PCR) Negative (Negative) Influenza Type B (PCR) Negative (Negative) RSV (PCR) Negative (Negative) 02/01/25 Range/Units 16:16 WBC 10.53 (4.4-10.8) 10^3/uL RBC 3.98 (3.93-5.22) 10^6/uL Hgb 8.4 L (11.2-15.7) g/dL Hct 28.4 L (36.0-46.0) % MCV 71 L (80-95) fL MCH 21.1 L (27.0-33.0) pg MCHC 29.6 L (32.0-36.0) % RDW 19.4 H (11.7-14.6) % Plt Count 462 H (130-400) 10^3/uL MPV 9.5 (8.0-11.0) fL Immature Gran % 0.4 % Neutrophils % 72.2 % Lymphocytes % 14.7 % Monocytes % 10.5 % Eosinophils % 1.6 % Basophils % 0.6 % Nucleated RBC % 0.0 (0.0-0.3) % Absolute Neutrophils 7.60 H (1.2-6.7) 10^3/uL Absolute Lymphocytes 1.55 (1.2-3.4) 10^3/uL Absolute Monocytes 1.11 H (0.1-0.8) 10^3/uL Absolute Eosinophils 0.17 (0.0-0.7) 10^3/uL Absolute Basophils 0.06 (0.0-0.2) 10^3/uL RBC Morphology See Below Hypochromasia 1+ Microcytosis 1+ VBG pH 7.46 H (7.31-7.41) VBG pCO2 46 (41-51) mmHg VBG pO2 35 mmHg VBG HCO3 33 H (23-28) mmol/L VBG Total CO2 31 H (24-29) mmol/L VBG O2 Saturation 66 % VBG Base Excess 9 H (-2-3) mmol/L VBG Lactate 1.1 (<or=2.0) mmol/L Sodium 138 (136-145) mmol/L Potassium 3.2 L (3.5-5.1) mmol/L Chloride 98 (98-107) mmol/L Carbon Dioxide 33.2 H (21.0-32.0) mmol/L Anion Gap 6.8 (3-11) mmol/L BUN 12 (7-18) mg/dL Creatinine 0.8 (0.55-1.02) mg/dL Est GFR (CKD-EPI 2020) 80.21 (mL/min/1.73m2) Glucose 98 (74-106) mg/dL Calcium 7.5 L (8.5-10.1) mg/dL Magnesium 1.8 (1.8-2.4) mg/dL Total Bilirubin 1.4 H (0.2-1.0) mg/dL AST 51 H (15-37) U/L ALT 84 H (14-59) U/L Alkaline Phosphatase 62 (46-116) U/L Troponin I 9 (<or=51) ng/L NT-Pro-B Natriuret Pep 280 (<300) pg/mL Total Protein 7.4 (6.4-8.2) g/dL Albumin 2.6 L (3.4-5.0) g/dL COVID-19 Source SARS-CoV-2 (PCR) (Negative) Influenza Type A (PCR) (Negative) Influenza Type B (PCR) (Negative) RSV (PCR) (Negative) 02/01/25 16:16 Blood Culture - Pending Blood 02/01/25 15:42 Blood Culture - Pending Blood Intake and Output - 24 Hour Total 02/01/25 14:58 thru 02/01/25 17:17 Intake Total 50 Balance 50 Weight 163.293 kg Intake: IV 50 Falls Risk Assessment History of Falls Previous History 02/01/25 16:38 Contributing Factors Confusion,Unstable, 02/01/25 16:38 Impairments Ambulatory Aids Uses ambulatory device + 02/01/25 16:38 Tubes/Lines With any additional score 02/01/25 16:38 Gait Evaluation W/any additional score 02/01/25 16:38 Cognition No cognitive impairment 02/01/25 16:38 Fall Total Score 94 02/01/25 16:38 Level of Risk Maximum Risk 06/20/25 16:38 Problems (Last Reviewed 11/28/24 @ 21:51 by Brandan Hicks) Left above-knee amputee (Acute) Heart failure with preserved ejection fraction (Acute) Morbid obesity (Acute 04/05/13) v v v v v v v v v Sending and/or Receiving Nurses: Please use comment section below to note any information pertinent to the patient hand-off not included above. Information / Comments: Pt here for CHF and COPD exacerbation, increased work of breathing. Report received from: OZ Agustin
[2025-02-02] MEDS: Normal Saline Flush 10 ML SYR IVP ×3 (00:23→20:50)
[2025-02-02] MEDS: Acetaminophen 325 MG TAB PO ×2 (00:23→09:52)
[2025-02-02] MEDS: Norethindrone 5 MG TAB 10 MG PO ×3 (00:23→20:45)
[2025-02-02 04:18] VITALS: BP 106/55; PULSE 75; RESP 20; TEMP 37; O2SAT 93
[2025-02-02] MEDS: Levothyroxine 200 MCG TAB PO (05:24)
[2025-02-02 08:31] VITALS: BP 117/63; PULSE 76; RESP 18; TEMP 36.7; O2SAT 91
--- NOTE | 2025-02-02 09:47 | PDOC.CMIN ---
Date of service: 02/02/25 Time of Service: 09:48 Care Management Initial Assmt Initial Assessment Reason for Hospitalization: CHF Functional Status/Living Situation Patient Presentation: Radha was lying in bed with her eyes closed when CM met with her. She was wearing Cpap and her skin appeared dusky. When asked how she was feeling, Radha shook her head no.When asked if she feels any better at all since arriving at the hospital, she again said no. As it was clear that talking would be difficult both because of the Cpap and her shortness of breath, CM kept the visit brief. Radha has been a patient on multiple occasions and has worked with CM before, so much of her information is known. Radha had a bit of fever on admission, around 38 C, but is afebrile today. Her vital signs are stable but her SBP is a bit soft. Her oxygen saturation has been in the mid 90s on 3-4L/min oxygen via Cpap. Her baseline oxygen need is 2L/min of nasal O2. Radha lives in an apartment in [facility] with her granddaughter Loc. She is essentially wheelchair bound but is able to stand and pivot to get in and out of bed and to the commode. She has home health nursing visits 3 times a week for wound care to her LLE. Radha is fairly independent with ADLs and can bathe and dress herself but sometimes needs some help. She does her own cooking and her granddaughter helps with shopping. Town of Residence: [facility] Resides with: Other (granddaughter Loc) Significant Other/Family: [facility] Employment Status: Retired Instrumental Activities of Daily Living (ADLs): Independent Medications Medication Management: No Issues/Barriers identified Physical Functioning/Mobility Assistive Device: wheelchair and walker home oxygen at 2L/min Advance Directives Advance Directives: Do you have an Advance Directive: Y 04/11/24, 07:49 AD On File at [facility]: Y 04/11/24, 07:49 Date Asked 12/06/24 12/06/24, 16:42 AD Date Reviewed 02/01/25 02/01/25, 15:10 COLST On File at [facility] COLST Date Scanned Code Status Resuscitation Status Full Code Portal Pt does not currently have a portal and education provided: Yes Insurance Coverage/Financial Issues Insurance: [employer] medicare Replacement Care Team Visit Care Team Role Provider Type Alphonso Murphy MD Primary Care Provider [facility] STAFF PHYSICIAN Delma Mccracken Other Providers POWDER MONKEY Yanely Limon Other Providers [facility]KEY Jannette Silverio Other Providers POWDER MONKEY Avis North RN Other Providers [facility] MONKEY Jenna Cesar Other Providers [facility] MONKEY Leyda Bautista MD Emergency Provider [facility] STAFF PHYSICIAN Juan Cesar MD Admit Provider [facility] STAFF PHYSICIAN Attending Provider Discharge Potential Discharge Needs: PCP F/U Appt Anticipated Barriers to Discharge: None Identified Patient/Family Education Needs: Review discharge instructions, discuss Ask Me Three Transportation: Private vehicle Plan: Anticipate Radha will be discharged home with a resumption of home health services for wound care. She will follow up with her PCP and plan of care and transport with family via private vehicle. CM will follow and continue to asses for discharge needs. Social Determinants of Health Screening Will the Patient Participate in the Screening?: Declined to provide Do you worry about having a steady place to live?: choose not to answer In the past 12 months, have you had to go without electric, gas, oil or water in your home?: choose not to answer Has lack of transportation kept you from medical appointments or from doing things needed for daily living?: choose not to answer Has anyone in your life made you feel unsafe or unsupported?: choose not to answer Health Related Social Needs Health related social needs: material hardship(utilities) (Z59.12) Health related social needs details: Pt refuses to answer questions PFSH All Active Problems (Updated 02/01/25 @ 18:02 by Leyda Bautista MD) COPD exacerbation (Acute) Electrolyte disturbance (Acute) Acute on chronic hypoxic respiratory failure (Acute) Left above-knee amputee (Acute) On deep vein thrombosis (DVT) prophylaxis (Acute) Advanced care planning/counseling discussion (Acute) Elevated liver enzymes (Acute) Exertional shortness of breath (Acute) Heart failure with preserved ejection fraction (Acute) Wound dehiscence (Acute) Thickened endometrium (Acute) Postmenopausal bleeding (Acute) Venous stasis dermatitis (Acute) Chronic headaches (Chronic) Recent Neurology consult for possible papilledema. Urinary incontinence (Chronic) On Detrol Recurrent UTI (Chronic) Right ventricular dysfunction (Chronic) Knee pain, bilateral (Chronic 07/23/14) s/p bilat TKR (left infected with mult surg and decreased mobility) Morbid obesity (Acute 04/05/13) Sensorineural hearing loss, bilateral (Chronic 08/29/13) Advance directive on file (Acute) Low back pain with sciatica (Chronic 05/03/14) CT at [facility] L34 spinal stenosis Varicose veins of lower extremity (Chronic) Depression (Chronic) Grief at loss of child (Acute) Mixed conductive and sensorineural hearing loss of both ears (Acute) Right carpal tunnel syndrome (Acute) Arthritis of right hand (Acute) Impingement of right ulnar nerve (Acute) Dermoid cyst of neck (Acute) Microcalcifications of the breast (Acute) Neuropathy of left hand (Acute) Neuropathy of right hand (Acute) Bilateral carpal tunnel syndrome (Acute) Medical History Palliative care patient CHF (congestive heart failure) Atrial fibrillation COPD (chronic obstructive pulmonary disease) Hx pulmonary embolism (~2015) treated with lovenox x 3 months GERD (gastroesophageal reflux disease) had negative barium esophagram in 11/2022. Anxiety Lymphedema Hypothyroidism DAVID (obstructive sleep apnea) on BiPap Chronic respiratory failure with hypoxia and hypercapnia home BiPap Surgical History S/P AKA (above knee amputation) (~09/2024) Status post thyroidectomy History of fasciotomy Replacement of total knee joint Bilateral; left-became bbnabeif-zigahni-krppxbsv surgeries Fasciotomy, Foot (~1996) LEFT History of Surgical Procedure a. Right and left toal knee replacements. b. Left knee has been repeatedly operated on with slava surgies, three replacements. Family History Mother Diabetes Personal history of malignant neoplasm LUNG Father Personal history of malignant neoplasm BRAIN Grandfather No problems noted. Grandfather No problems noted. Grandmother No problems noted. Grandmother No problems noted. Social History (Updated 11/28/24 @ 21:52 by Brandan Hicks) Smoking/Tobacco Use Status: Former Tobacco Use tobacco type: cigarettes Quit Date: 01/21/21 Second Hand Exposure: Yes Smoking risk assessment performed?: Yes Alcohol Intake: never Drug use: Never Substance use type: does not use Counseling given: No Housing: apartment Communication Needs: Hard of Hearing and Corrective Lenses Pets and animals: Yes Pets and animals: cat(s) Sexually active: Yes Current gender identity: female What is your relationship status?: never How often do you talk on the phone with friends or family?: decline to answer How often do you get together with friends or relatives?: decline to answer How often do you attend jain or adventist services?: decline to answer Do you belong to any clubs or organized social groups?: no Panel score (0-1 are the most socially isolated patients): 0 Seatbelt use: never Do you feel safe at home: Yes Do you feel safe in your relationship?: Yes Additional Social history: Lives in her own apartment in [facility], uses electric scooter
[2025-02-02] MEDS: Furosemide 100 MG/10 ML VIAL 80 MG IVP ×3 (09:49→20:49)
[2025-02-02] MEDS: Fluticasone NASAL SPRAY 16 GM BTL NS (09:50)
[2025-02-02] MEDS: Nystatin POWDER 60 GM JAR TP ×2 (09:50→20:45)
[2025-02-02] MEDS: Enoxaparin 40 MG/0.4 ML SYR SC (09:50)
[2025-02-02] MEDS: Gabapentin 300 MG CAP 600 MG PO (09:51)
[2025-02-02] MEDS: Ascorbic Acid 500 MG TAB 1000 MG PO (09:51)
[2025-02-02] MEDS: Lactobacillus Acidophilus CAP 1 CAP PO (09:51)
[2025-02-02] MEDS: Empaglifozin 10 MG TAB PO (09:52)
[2025-02-02] MEDS: Lisinopril 5 MG TAB 2.5 MG PO (09:52)
[2025-02-02] MEDS: Metoprolol 12.5 MG TAB PO ×2 (09:52→20:45)
[2025-02-02] MEDS: Potassium Chloride 20 MEQ TABCR PO ×3 (09:52→17:00)
[2025-02-02] MEDS: Spironolactone 25 MG TAB PO (11:53)
--- NOTE | 2025-02-02 17:40 | W.PM.PROGNOT ---
Date of Service Date of service: 02/02/25 Time of Service: 17:40 Assessment and Plan Assessment and plan (1) Acute and chronic respiratory failure with hypoxia: Status: Acute Assessment and plan: d/t fluid overload on home O2 at 3 liters nc at baseline, continue IV lasix, (2) Acute on chronic heart failure with preserved ejection fraction: Status: Acute Assessment and plan: Last EF in 04/03/2024 was 55%. continue diuresis with IV lasix monitor intake and output closely, electrolytes and kidney function daily weights consider updated echo when available. (3) Palliative care patient: Assessment and plan: palliative care consult pending (4) Morbid obesity: Status: Acute Assessment and plan: There is some concern about hypoventilation syndrome considering her body habitus (5) Left above-knee amputee: Status: Acute Assessment and plan: fall precaution, uses wheelchair (6) DAVID (obstructive sleep apnea): Assessment and plan: Continue home BiPAP (7) Hypothyroidism: Assessment and plan: Continue Synthroid (8) GERD (gastroesophageal reflux disease): Assessment and plan: Continue home medication symptoms stable Discussed with Dr. Hicks Subjective Subjective Patient reports: no new complaints, feels better, tolerating liquids well, tolerating a regular diet, shortness of breath and afebrile Exam Const Nutritional Appearance: obese morbidly obese Orientation: alert, awake and oriented x3 HENMT Head: normal to inspection, normocephalic and atraumatic Mouth: oral mucosae normal Eyes General: appearance normal, both eyes and all related structures Resp Effort & Inspection: normal respiratory effort and able to speak in complete sentences Auscultation: diminished lung sounds bilaterally, no rhonchi and no wheezes Cardio Rate: regular rate Rhythm: regular rhythm GI Inspection: large pannus and obesity Palpation: soft Extrem General: edema (Lymphedema) Laterality: bilateral Psych Mental Status: mental status grossly normal Speech and Movement: speech and movement normal Mood: congruent mood Affect: irritable affect Objective Last Vital Signs Temp 36.7 C 02/02/25 08:31 Pulse 76 02/02/25 08:31 Resp 18 02/02/25 08:31 BP 117/63 02/02/25 08:31 Pulse Ox 91 L 02/02/25 08:31 Laboratory Results - last 24 hr 02/01/25 02/01/25 17:09 19:23 Troponin I 10 9 Time Spent with Patient Time Spent with Patient: 35-49 minutes Time was spent: preparing to see the patient(eg.review tests), obtaining and/or reviewing separately otained hiistory, ordering medications,tests, procedures and indepentently interpreting results
[2025-02-02 20:18] VITALS: BP 107/59; PULSE 74; RESP 20; TEMP 37.1; O2SAT 95
[2025-02-02 20:26] VITALS: PULSE 72; RESP 22; O2SAT 94
--- NOTE | 2025-02-02 21:28 | NUR.NOTE ---
Nursing Note: changed dressing to left AKA. wound edges well approximated, deep grooves at suture lines. Dressing and gauze in grooves removed, area cleansed with NS, dried, and re dressed.
[2025-02-02 22:45] VITALS: BP 117/70; PULSE 75; RESP 20; TEMP 37.6
--- NOTE | 2025-02-03 00:03 | NUR.NOTE ---
Nursing Note: Pt c/o intermittent nausea through this shift. She has declined any intervention at this time.
[2025-02-03] MEDS: Acetaminophen 325 MG TAB PO ×2 (01:17→22:08)
[2025-02-03 02:42] VITALS: BP 99/60; PULSE 72; RESP 20; TEMP 37.3; O2SAT 93
[2025-02-03] MEDS: Levothyroxine 200 MCG TAB PO (06:05)
[2025-02-03 06:46] LABS: HCT 26.4 % (36.0-46.0); HGB 7.9 g/dL (11.2-15.7); MCH 21.4 pg (27.0-33.0); MPV 9.3 fL (8.0-11.0); Platelet Count 402 10^3/uL (130-400); RBC 3.69 10^6/uL (3.93-5.22); RDW 19.9 % (11.7-14.6); RDW-SD 51.1 fL; WBC 10.09 10^3/uL (4.4-10.8)
[2025-02-03 07:04] LABS: MCHC 29.9 % (32.0-36.0); MCV 72 fL (80-95)
[2025-02-03 07:14] LABS: ALT 67 U/L (14-59); AST 41 U/L (15-37); Albumin 2.4 g/dL (3.4-5.0); Alkaline Phosphatase 61 U/L (46-116); Anion Gap 7.3 mmol/L (3-11); BUN 11 mg/dL (7-18); Bilirubin, Total 0.9 mg/dL (0.2-1.0); CO2 32.7 mmol/L (21.0-32.0); CREATININE 0.9 mg/dL (0.55-1.02); Calcium 7.4 mg/dL (8.5-10.1); Chloride 98 mmol/L (98-107); Estimated GFR 69.64 (mL/min/1.73m2); Glucose 113 mg/dL (74-106); Magnesium 2.1 mg/dL (1.8-2.4); Potassium 3.2 mmol/L (3.5-5.1); Sodium 138 mmol/L (136-145); Total Protein 7.1 g/dL (6.4-8.2)
[2025-02-03 07:37] VITALS: BP 107/57; PULSE 80; RESP 16; TEMP 37.5
[2025-02-03] MEDS: Normal Saline Flush 10 ML SYR IVP ×3 (09:14→22:15)
[2025-02-03] MEDS: Furosemide 100 MG/10 ML VIAL 80 MG IVP ×3 (09:14→22:15)
[2025-02-03 10:50] LABS: Lactate 1.4 mmol/L (<or=2.0)
[2025-02-03] MEDS: Gabapentin 300 MG CAP 600 MG PO (10:55)
[2025-02-03] MEDS: Metoprolol 12.5 MG TAB PO ×2 (10:55→22:08)
[2025-02-03] MEDS: Ketorolac 30 MG/ML VIAL IVP ×2 (10:55→22:15)
[2025-02-03] MEDS: Norethindrone 5 MG TAB 10 MG PO ×2 (10:55→22:08)
[2025-02-03] MEDS: Ascorbic Acid 500 MG TAB 1000 MG PO (10:55)
[2025-02-03] MEDS: Potassium Chloride 20 MEQ TABCR PO ×3 (10:56→17:55)
[2025-02-03] MEDS: Lisinopril 5 MG TAB 2.5 MG PO (10:56)
[2025-02-03] MEDS: Spironolactone 25 MG TAB PO (10:56)
[2025-02-03] MEDS: Empaglifozin 10 MG TAB PO (10:56)
[2025-02-03] MEDS: Lactobacillus Acidophilus CAP 1 CAP PO (10:56)
[2025-02-03] MEDS: Enoxaparin 40 MG/0.4 ML SYR SC (10:57)
--- NOTE | 2025-02-03 11:08 | DSE_ITS ---
DS: Diagnosis Discharge Diagnosis (1) Acute and chronic respiratory failure with hypoxia: Status: Acute (2) Acute on chronic heart failure with preserved ejection fraction: Status: Acute (3) Palliative care patient: (4) Morbid obesity: Status: Acute (5) Left above-knee amputee: Status: Acute (6) DAVID (obstructive sleep apnea): (7) Hypothyroidism: (8) GERD (gastroesophageal reflux disease): Discharge Plan Disposition Condition: Improving Discharge Details Reason For Visit: chf exacerbation Admit Date/Time: 02/01/25 18:07 Admit Provider: Juan Cesar Attending Provider: Juan Cesar Primary Care Provider: Alphonso Muprhy Home Meds and New Rx's Prescriptions: No Action albuterol sulfate 90 mcg/actuation HFA aerosol inhaler 1 - 2 puff Inhalation Q6H PRN Qty: 1 11RF fluticasone propionate [Flonase Allergy Relief] 50 mcg/actuation spray,suspension 1 spray NS DAILY Qty: 1 8RF potassium chloride [Klor-Con M20] 20 mEq tablet,ER particles/crystals 20 meq PO DAILY Qty: 90 3RF alclometasone 0.05 % cream 1 applic topical BID PRN (Reason: itching) Qty: 45 1RF gabapentin 300 mg capsule 600 mg PO TID PRN levothyroxine 200 mcg tablet 200 mcg PO DAILY Qty: 90 3RF furosemide 80 mg tablet 80 mg PO BID@0830,1600 Qty: 180 3RF ascorbic acid (vitamin C) 1,000 MG tablet 1,000 mg PO DAILY (DME) Aerochamber Mini 1 EACH spacer 1 ea Inhalation PRN Qty: 1 Rx Instructions: DIRECTED WITH INHALER BiPAP Inhalation Gas 5 l IN DIRECTED Rx Instructions: sleep apnea (REPLACED BY [facility] sleep lab 2013) uses with oxygen betamethasone, augmented 0.05 % lotion 1 applic topical BID PRN (Reason: allergic reaction) Qty: 60 2RF oxygen Inhalation 3 l Intranasal DIRECTED Patient Comments: Continuous and uses with bipap Rx Instructions: 3L/NC continuous pantoprazole 20 mg tablet,delayed release (DR/EC) 20 mg PO DAILY Qty: 90 3RF Rx Instructions: 04/13/23 Per GI. -hb sertraline 50 mg tablet 50 mg PO DAILY Qty: 90 3RF metolazone 2.5 mg tablet 2.5 mg PO .q tues/frid Qty: 20 2RF ketoconazole 2 % cream 1 applic topical BID PRN (Reason: facial rash) Qty: 60 1RF norethindrone acetate [Gallifrey] 5 mg tablet See Rx Instructions .ROUTE .COMPLEX Qty: 180 1RF Dose Instruction: TAKE TWO TABLETS BY MOUTH TWICE A DAY Rx Instructions: TAKE TWO TABLETS BY MOUTH TWICE A DAY Jardiance 10 mg tablet 10 mg PO QAM Qty: 90 3RF nystatin 100,000 unit/gram powder 1 applic TP BID Qty: 30 5RF BiomePRO 50 billion cell capsule,delayed release(DR/EC) 1 cap PO DAILY Qty: 4 0RF Rx Instructions: Take 3 hours apart form any antibiotics ipratropium-albuterol 0.5 mg-3 mg(2.5 mg base)/3 mL solution for nebulization 3 ml inhalation Q6H PRN (Reason: shortness of breath or wheezing) Qty: 90 0RF spironolactone 25 mg Tablet 25 mg PO DAILY Qty: 30 0RF prednisone 20 mg tablet 20 mg PO DAILY Qty: 10 0RF DS: Summary Quality:SDOH Health Related Social Needs: Health related social needs material hardship Health related social needs details Pt refuses to answ er questions Health related social needs details: Pt refuses to answer questions DS: Data Vitals/I&O Vitals and I&O: Vital Signs Temperature 37.5 C 02/03/25 07:37 Temperature Source Temporal Artery Scan 02/03/25 07:37 Pulse 80 02/03/25 07:37 Pulse Rhythm Irregular 02/01/25 20:45 Pulse 85 02/01/25 19:50 Respiratory Rate 16 02/03/25 07:37 Respiratory Effort Short of Breath 02/01/25 20:45 Respiratory Depth Normal 02/01/25 20:45 Respiratory Pattern Tachypnea 02/01/25 20:45 Blood Pressure 107/57 L 02/03/25 07:37 Blood Pressure Mean 73 02/03/25 07:37 Pulse Oximetry 93 02/03/25 02:42 Oxygen Delivery Method Nasal Cannula 02/03/25 07:37 Oxygen Flow Rate 3 02/03/25 07:37 Pain Level 10 02/03/25 10:55 Intake & Output 02/02/25 02/02/25 02/03/25 11:59 23:59 11:59 Intake Total 690 / 700 10 / 700 550 / 550 Output Total 275 / 4025 3750 / 4025 150 / 150 Balance 415 / -3325 -3740 / -3325 400 / 400 Weight 179.7 kg 178.4 kg Intake: IV Oral 690 / 690 550 / 550 Output: Urine 275 / 4025 3750 / 4025 150 / 150 Other: Urine Color Yellow Yellow Light Anay Urine Appearance Clear Clear Clear Urine Odor Strong Normal Comment Pt largely incontinent prior to schultz insertion Data Completed and Pending Labs on day of discharge: Labs from last 24 hours 02/03/25 02/03/25 02/03/25 Unknown 10:45 10:16 WBC RBC Hgb Hct MCV MCH MCHC RDW Plt Count MPV Reticulocyte % (Auto) Pending VBG Lactate 1.4 Sodium Potassium Chloride Carbon Dioxide Anion Gap BUN Creatinine Est GFR (CKD-EPI 2020) Glucose Calcium Magnesium Iron Pending TIBC Pending Transferrin % Sat Pending Ferritin Pending Total Bilirubin AST ALT Alkaline Phosphatase Total Protein Albumin Vitamin B12 Pending Folate Pending 02/03/25 06:35 WBC 10.09 RBC 3.69 L Hgb 7.9 L Hct 26.4 L MCV 72 L MCH 21.4 L MCHC 29.9 L RDW 19.9 H Plt Count 402 H MPV 9.3 Reticulocyte % (Auto) VBG Lactate Sodium 138 Potassium 3.2 L Chloride 98 Carbon Dioxide 32.7 H Anion Gap 7.3 BUN 11 Creatinine 0.9 Est GFR (CKD-EPI 2020) 69.64 Glucose 113 H Calcium 7.4 L Magnesium 2.1 Iron TIBC Transferrin % Sat Ferritin Total Bilirubin 0.9 AST 41 H ALT 67 H Alkaline Phosphatase 61 Total Protein 7.1 Albumin 2.4 L Vitamin B12 Folate Preliminary micro results at discharge 02/01/25 16:16 Blood Blood Culture - Preliminary NO GROWTH 24 HOURS 02/01/25 15:42 Blood Blood Culture - Preliminary NO GROWTH 24 HOURS PFS All Active Problems (Updated 02/02/25 @ 17:44 by Mine Farah NP) Acute on chronic heart failure with preserved ejection fraction (Acute) Acute and chronic respiratory failure with hypoxia (Acute) COPD exacerbation (Acute) Electrolyte disturbance (Acute) Acute on chronic hypoxic respiratory failure (Acute) Left above-knee amputee (Acute) On deep vein thrombosis (DVT) prophylaxis (Acute) Advanced care planning/counseling discussion (Acute) Elevated liver enzymes (Acute) Exertional shortness of breath (Acute) Heart failure with preserved ejection fraction (Acute) Wound dehiscence (Acute) Thickened endometrium (Acute) Postmenopausal bleeding (Acute) Venous stasis dermatitis (Acute) Chronic headaches (Chronic) Recent Neurology consult for possible papilledema. Urinary incontinence (Chronic) On Detrol Recurrent UTI (Chronic) Right ventricular dysfunction (Chronic) Knee pain, bilateral (Chronic 07/23/14) s/p bilat TKR (left infected with mult surg and decreased mobility) Morbid obesity (Acute 04/05/13) Sensorineural hearing loss, bilateral (Chronic 08/29/13) Advance directive on file (Acute) Low back pain with sciatica (Chronic 05/03/14) [place] [facility] [place] Varicose veins of lower extremity (Chronic) Depression (Chronic) Grief at loss of child (Acute) Mixed conductive and sensorineural hearing loss of both ears (Acute) Right carpal tunnel syndrome (Acute) Arthritis of right hand (Acute) Impingement of right ulnar nerve (Acute) Dermoid cyst of neck (Acute) Microcalcifications of the breast (Acute) Neuropathy of left hand (Acute) Neuropathy of right hand (Acute) Bilateral carpal tunnel syndrome (Acute) Medical History Palliative care patient CHF (congestive heart failure) Atrial fibrillation COPD (chronic obstructive pulmonary disease) Hx pulmonary embolism (~2015) treated with lovenox x 3 months GERD (gastroesophageal reflux disease) had negative barium esophagram in 11/2022. Anxiety Lymphedema Hypothyroidism DAVID (obstructive sleep apnea) on BiPap Chronic respiratory failure with hypoxia and hypercapnia home BiPap Surgical History S/P AKA (above knee amputation) (~09/2024) Status post thyroidectomy History of fasciotomy Replacement of total knee joint Bilateral; left-became nkqcpujy-cgtrvne-mrwygvhz surgeries Fasciotomy, Foot (~1996) LEFT History of Surgical Procedure a. Right and left toal knee replacements. b. Left knee has been repeatedly operated on with slava surgies, three replacements. Family History Mother Diabetes Personal history of malignant neoplasm LUNG Father Personal history of malignant neoplasm BRAIN Grandfather No problems noted. Grandfather No problems noted. Grandmother No problems noted. Grandmother No problems noted. Social History (Updated 11/28/24 @ 21:52 by Brandan Hicks) Smoking/Tobacco Use Status: Former Tobacco Use tobacco type: cigarettes Quit Date: 01/21/21 Second Hand Exposure: Yes Smoking risk assessment performed?: Yes Alcohol Intake: never Drug use: Never Substance use type: does not use Counseling given: No Housing: apartment Communication Needs: Hard of Hearing and Corrective Lenses Pets and animals: Yes Pets and animals: cat(s) Sexually active: Yes Current gender identity: female What is your relationship status?: never How often do you talk on the phone with friends or family?: decline to answer How often do you get together with friends or relatives?: decline to answer How often do you attend congregation or yarsanism services?: decline to answer Do you belong to any clubs or organized social groups?: no Panel score (0-1 are the most socially isolated patients): 0 Seatbelt use: never Do you feel safe at home: Yes Do you feel safe in your relationship?: Yes Additional Social history: Lives in her own apartment in [facility], uses electric scooter
[2025-02-03 11:31] LABS: Reticulocyte 1.9 % (0.5-2.4)
[2025-02-03 11:41] LABS: Iron 19 ug/dL (50-170); Total Iron Binding Capacity 313 ug/dL (250-450); Transferrin Sat 6 % (15-50)
[2025-02-03 12:08] LABS: Ferritin 20 ng/mL (8-252); Folate 10.2 ng/mL (8.6-20.0); Vitamin B12 334 pg/mL (193-986)
--- NOTE | 2025-02-03 15:20 | W.PM.PROGNOT ---
Date of Service Date of service: 02/03/25 Time of Service: 15:37 Assessment and Plan Assessment and plan (1) Acute and chronic respiratory failure with hypoxia: Status: Acute Assessment and plan: d/t fluid overload on home O2 at 3 liters nc at baseline, responding well to increased diuresis, continue IV lasix, (2) Acute on chronic heart failure with preserved ejection fraction: Status: Acute Assessment and plan: Last EF in 04/03/2024 was 55%. continue diuresis with IV lasix monitor intake and output closely, electrolytes and kidney function daily weights echo Tuesday when available. (3) Palliative care patient: Assessment and plan: palliative care consult pending (4) Morbid obesity: Status: Acute Assessment and plan: There is some concern about hypoventilation syndrome considering her body habitus (5) Left above-knee amputee: Status: Acute Assessment and plan: fall precaution, uses wheelchair (6) DAVID (obstructive sleep apnea): Assessment and plan: Continue home BiPAP (7) Hypothyroidism: Assessment and plan: Continue Synthroid (8) GERD (gastroesophageal reflux disease): Assessment and plan: Continue home medication symptoms stable Discussed with Dr. Hicks (9) Anemia: Status: Chronic Assessment and plan: microcytic add iron studies, stool for OB (10) Discharge planning issues: Status: Acute Assessment and plan: Case management following for discharge planning Anticipated discharge to home tomorrow afternoon at 4:10 on the [facility] bus if remains medically stable discussed with Dr Hicks Subjective Subjective Patient reports: no new complaints, voiding w/o difficulty (schultz draining light yellow urine), shortness of breath (baseline) and afebrile Exam Const Nutritional Appearance: obese morbidly obese Orientation: alert, awake and oriented x3 HENMT Head: normal to inspection, normocephalic and atraumatic Mouth: oral mucosae normal Eyes General: appearance normal, both eyes and all related structures Resp Effort & Inspection: normal respiratory effort and able to speak in complete sentences Auscultation: diminished lung sounds bilaterally, no rhonchi and no wheezes Cardio Rate: regular rate Rhythm: regular rhythm GI Inspection: large pannus and obesity Palpation: soft Extrem General: edema (Lymphedema) Laterality: bilateral Psych Mental Status: mental status grossly normal Speech and Movement: speech and movement normal Mood: congruent mood Affect: irritable affect Objective Last Vital Signs Temp 37.5 C 02/03/25 07:37 Pulse 80 02/03/25 07:37 Resp 16 02/03/25 07:37 BP 107/57 L 02/03/25 07:37 Pulse Ox 93 02/03/25 02:42 Laboratory Results - last 24 hr 02/03/25 02/03/25 06:35 10:45 WBC 10.09 RBC 3.69 L Hgb 7.9 L Hct 26.4 L MCV 72 L MCH 21.4 L MCHC 29.9 L RDW 19.9 H Plt Count 402 H MPV 9.3 Reticulocyte % (Auto) 1.9 VBG Lactate 1.4 Sodium 138 Potassium 3.2 L Chloride 98 Carbon Dioxide 32.7 H Anion Gap 7.3 BUN 11 Creatinine 0.9 Est GFR (CKD-EPI 2020) 69.64 Glucose 113 H Calcium 7.4 L Magnesium 2.1 Iron 19 L TIBC 313 Transferrin % Sat 6 L Ferritin 20 Total Bilirubin 0.9 AST 41 H ALT 67 H Alkaline Phosphatase 61 Total Protein 7.1 Albumin 2.4 L Vitamin B12 334 Folate 10.2 Time Spent with Patient Time Spent with Patient: 35-49 minutes Time was spent: preparing to see the patient(eg.review tests), obtaining and/or reviewing separately otained hiistory, ordering medications,tests, procedures, indepentently interpreting results and counseling the patient
[2025-02-03 20:30] VITALS: PULSE 80; RESP 20; O2SAT 92
[2025-02-04] MEDS: Nystatin POWDER 60 GM JAR TP ×4 (00:29→20:39)
--- NOTE | 2025-02-04 01:51 | W.EVENT ---
Date of service: 02/04/25 Time of Service: 01:51 Event Note: I was called by the attending nurse to review patient is abdominal pain which does not appear to have been followed in the progress notes though there is some evidence of patient having imaging recently in the ED on 01/30/2025 before this admission 02/01/2025. She was concerned also about her anemia which appears to be progressive and microcytic. This also has not been addressed directly and progress notes but has been reviewed with recent labs revealing iron deficiency and trending CBCs. The patient appears to have altered mentation chronically and is not cooperative at time as well as being morbidly obese with left BKA and fairly immobile appearing. When I try to examine her abdomen she was agitated and almost swung at main with her fist but did allow exam revealing guarding and tenderness to any palpation of her right upper abdomen. Because of her obesity and pannus, it is difficult to assess whether this is abdominal or chest wall at times. She did have elevated liver function tests upon admission which are improving and as stated ultrasound prior to admission was unrevealing. I did order a type and screen because of her anemia and I did review her potassium level being low with oral potassium being given with meals but persistently low. I will not adjust this. Occult blood testing for stool was negative on my shift. If her hemoglobin falls below 7, transfusion may be considered and reimaging of her abdomen at least with ultrasound may be warranted with her persistent pain. She these problems could be addressed in the progress note and resolved prior to discharge. Assessment/plan: 1: Right upper quadrant abdominal pain persistent with slight elevation of liver function test at 1 point in her hospitalization. Consider reultrasounding the gallbladder versus other imaging if needed. She does not appear to have a occult blood in her stool but does have microcytic anemia with chronic iron deficiency. This is worsening during her hospital stay. There is no clinical evidence of acute bleeding. Day hospitalist provider to review. 2: Microcytic anemia with iron deficiency and negative occult blood of stool test. Long-term patient should have GI evaluation for this problem. Nutrition needs to also be reviewed and iron supplement could be started. 3: Hypokalemia persistent despite oral supplement. Consider advancing supplementation. This may also be nutritional. She is on diuretics chronically. Time Spent with Patient Time spent in critical care(minutes): 30 Time Spent Included: Coordination of care, Chart review, Documenting critically ill care, Time at immediate bedside, Discussing critically ill care with other medical staff (Reviewing history and lab with primary care nurse.) and Other (Reviewing history and plan of care with patient.)
[2025-02-04 02:36] VITALS: BP 88/52; PULSE 63; RESP 24; TEMP 37.5; O2SAT 96
[2025-02-04 02:46] VITALS: BP 96/48
[2025-02-04] MEDS: Levothyroxine 200 MCG TAB PO (05:38)
[2025-02-04 07:20] LABS: Abs Immature Grans 0.03 10^3/uL (0.0-0.06); Absolute Basophil Count 0.03 10^3/uL (0.0-0.2); Absolute Eosinophil Count 0.24 10^3/uL (0.0-0.7); Absolute Lymphocyte Count 1.49 10^3/uL (1.2-3.4); Absolute Monocyte Count 1.04 10^3/uL (0.1-0.8); Basophils % 0.3 %; Eosinophils % 2.4 %; HCT 25.9 % (36.0-46.0); HGB 7.7 g/dL (11.2-15.7); Immature Grans % 0.3 %; MCH 21.3 pg (27.0-33.0); MCHC 29.7 % (32.0-36.0); MCV 72 fL (80-95); MPV 9.8 fL (8.0-11.0); Monocytes % 10.5 %; Neutrophils % 71.5 %; Platelet Count 422 10^3/uL (130-400); RBC 3.61 10^6/uL (3.93-5.22); RDW-SD 51.1 fL; WBC 9.93 10^3/uL (4.4-10.8)
[2025-02-04 07:44] LABS: Anion Gap 7.9 mmol/L (3-11); BUN 15 mg/dL (7-18); CO2 33.1 mmol/L (21.0-32.0); CREATININE 0.8 mg/dL (0.55-1.02); Calcium 7.5 mg/dL (8.5-10.1); Chloride 99 mmol/L (98-107); Estimated GFR 80.21 (mL/min/1.73m2); Glucose 91 mg/dL (74-106); Potassium 3.5 mmol/L (3.5-5.1); Sodium 140 mmol/L (136-145)
[2025-02-04 08:36] VITALS: BP 114/63; PULSE 72; RESP 18; TEMP 36.7; O2SAT 92
[2025-02-04 08:36] LABS: Anisocytosis 2+
[2025-02-04] MEDS: Furosemide 100 MG/10 ML VIAL 80 MG IVP ×3 (10:36→20:38)
[2025-02-04] MEDS: Lisinopril 5 MG TAB 2.5 MG PO (10:39)
[2025-02-04] MEDS: Lactobacillus Acidophilus CAP 1 CAP PO (10:40)
[2025-02-04] MEDS: Metoprolol 12.5 MG TAB PO ×2 (10:40→20:39)
[2025-02-04] MEDS: Ascorbic Acid 500 MG TAB 1000 MG PO (10:40)
[2025-02-04] MEDS: Spironolactone 25 MG TAB PO (10:41)
[2025-02-04] MEDS: Fluticasone NASAL SPRAY 16 GM BTL NS (10:41)
[2025-02-04] MEDS: Potassium Chloride 20 MEQ TABCR PO ×2 (10:41→17:57)
[2025-02-04] MEDS: Empaglifozin 10 MG TAB PO (10:41)
[2025-02-04] MEDS: Normal Saline Flush 10 ML SYR IVP ×3 (10:42→20:40)
[2025-02-04] MEDS: Norethindrone 5 MG TAB 10 MG PO ×2 (10:42→20:38)
[2025-02-04] MEDS: Ketorolac 15 MG/ML VIAL IVP ×2 (10:50→21:31)
[2025-02-04 12:28] VITALS: BP 98/54; PULSE 75; RESP 18; TEMP 36.8; O2SAT 96
[2025-02-04 13:07] VITALS: BP 98/54; PULSE 75; RESP 18; TEMP 36.8; O2SAT 96
[2025-02-04 14:26] VITALS: BP 110/60; PULSE 79; RESP 18; O2SAT 94
--- NOTE | 2025-02-04 16:02 | W.PM.PROGNOT ---
Date of Service Date of service: 02/04/25 Time of Service: 16:02 Assessment and Plan Assessment and plan (1) Acute and chronic respiratory failure with hypoxia: Status: Acute Assessment and plan: d/t fluid overload on home O2 at 3 liters nc at baseline, Continue IV lasix and transition to oral in AM - might need additional dose after IV iron (2) Acute on chronic heart failure with preserved ejection fraction: Status: Acute Assessment and plan: continue diuresis with IV lasix monitor intake and output closely, electrolytes and kidney function daily weights echo completed w LVEF of 60% but IVC collapse < 50% with respiration - will continue IV lasix today (3) Abdominal pain: Status: Acute Assessment and plan: Abdominal CT done on 01/30/2025 was negative for acute findings (4) Fall: Status: Acute (5) Laceration of left forearm: Status: Acute (6) Palliative care patient: Assessment and plan: palliative care consult pending (7) Morbid obesity: Status: Acute Assessment and plan: There is some concern about hypoventilation syndrome considering her body habitus (8) Left above-knee amputee: Status: Acute Assessment and plan: fall precaution, uses wheelchair (9) DAVID (obstructive sleep apnea): Assessment and plan: Continue home BiPAP (10) Hypothyroidism: Assessment and plan: Continue Synthroid (11) GERD (gastroesophageal reflux disease): Assessment and plan: Continue home medication symptoms stable (12) Anemia: Status: Chronic Assessment and plan: microcytic iron studies-low iron and iron stores and with history of CHF IV iron infusion would be beneficial IV iron ordered stool for OB was negative Patient will benefit from outpatient anemia workup. Patient has a previous history of vaginal bleeding consider [facility] follow-up Serial H&H (13) Discharge planning issues: Status: Acute Assessment and plan: Case management following for discharge planning Anticipated discharge to home tomorrow afternoon at 4:10 on the [facility] bus if remains medically stable discussed with Dr Hicks Subjective Subjective Patient reports: no new complaints (ongoing c/o of right abd pain ), shortness of breath, afebrile and other (Fell while self transferring from bed to chair - denies head strike or joint/bone pain ); denies nausea or vomiting Exam Narrative Exam Narrative: Constitutional Morbidly obese patient on the floor in left lateral decubitus status post fall during self transfer from bed to wheelchair, in no acute distress, laceration to left forearm,denied head strike or joint/extremity pain HENMT: Facial structures with normal appearance, no apparent trauma Neuro:alert and oriented to self, person, place, time and situation. No focal deficit Resp: Diminished bilateral basilar breath sounds, no wheezing Cardio: Distant cardiac sounds S1-S2 regular,no murmur appreciated, bilateral radial and dorsalis pedis pulses are positive, bilateral lower extremity edema with left BKA with dressing dry clean and intact GI: Abdomen is large, not distended, soft and tender to right mid to upper quadrant, bowel sounds are present : Indwelling urinary catheter in place with blood-tinged sediment Extremities: Moves all 4 extremities Psych: RASS 0, congruent mood and normal affect. Objective Last Vital Signs Temp 36.8 C 02/04/25 13:07 Pulse 79 02/04/25 14:26 Resp 18 02/04/25 14:26 BP 110/60 02/04/25 14:26 Pulse Ox 94 02/04/25 14:26 Laboratory Results - last 24 hr 02/04/25 06:40 WBC 9.93 RBC 3.61 L Hgb 7.7 L Hct 25.9 L MCV 72 L MCH 21.3 L MCHC 29.7 L RDW 20.0 H Plt Count 422 H MPV 9.8 Immature Gran % 0.3 Neutrophils % 71.5 Lymphocytes % 15.0 Monocytes % 10.5 Eosinophils % 2.4 Basophils % 0.3 Nucleated RBC % 0.0 Absolute Neutrophils 7.10 H Absolute Lymphocytes 1.49 Absolute Monocytes 1.04 H Absolute Eosinophils 0.24 Absolute Basophils 0.03 Anisocytosis 2+ Sodium 140 Potassium 3.5 Chloride 99 Carbon Dioxide 33.1 H Anion Gap 7.9 BUN 15 Creatinine 0.8 Est GFR (CKD-EPI 2020) 80.21 Glucose 91 Calcium 7.5 L ABO/Rh O Positive Antibody Screen POSITIVE Time Spent with Patient Time Spent with Patient: >50 minutes Time was spent: preparing to see the patient(eg.review tests), obtaining and/or reviewing separately otained hiistory, ordering medications,tests, procedures, referring, communicating with other health vehicle care specialist, indepentently interpreting results, counseling the patient and care coordination
--- NOTE | 2025-02-04 16:36 | PDOC.CMPRO ---
Date of service: 02/04/25 Time of Service: 16:40 Care Management Progress Note Progress Note Text Progress Note Text: Radha was lying in bed, when CM arrived. She states, she had a fall today and banged her elbow. Radha stated, she has an appointment tomorrow morning at 9:30, to get new hearing aids, and she does not want to miss this appointment; CM communicated this to the provider. Radha has daily HH RN, who change a dressing, on her leg. CM will continue to follow. Discharge Potential Discharge Needs: PCP F/U Appt Anticipated Barriers to Discharge: None Identified Patient/Family Education Needs: Review discharge instructions, discuss Ask Me Three Transportation: Private vehicle Plan: Anticipate, Radha will be discharged home with a resumption of home health RN services for wound care. She will follow up with her PCP and plan of care. Radha will transport with family via private vehicle. CM will follow and continue to asses for discharge needs. Social Determinants of Health Screening Will the Patient Participate in the Screening?: Declined to provide Do you worry about having a steady place to live?: choose not to answer In the past 12 months, have you had to go without electric, gas, oil or water in your home?: choose not to answer Has lack of transportation kept you from medical appointments or from doing things needed for daily living?: choose not to answer Has anyone in your life made you feel unsafe or unsupported?: choose not to answer Health Related Social Needs Health related social needs: material hardship(utilities) (Z59.12) Health related social needs details: Pt refuses to answer questions
[2025-02-04 19:03] LABS: HCT 25.2 % (36.0-46.0); HGB 7.6 g/dL (11.2-15.7); MCH 21.4 pg (27.0-33.0); MPV 9.6 fL (8.0-11.0); Platelet Count 428 10^3/uL (130-400); RBC 3.55 10^6/uL (3.93-5.22); RDW-SD 51.1 fL
[2025-02-04 19:24] LABS: MCHC 30.2 % (32.0-36.0); MCV 71 fL (80-95); RDW 19.9 % (11.7-14.6)
[2025-02-04] MEDS: Torsemide 20 MG TAB 40 MG PO (21:21)
[2025-02-04] MEDS: Acetaminophen 500 MG TAB 1000 MG PO (21:21)
[2025-02-04] MEDS: Gabapentin 300 MG CAP 600 MG PO (21:31)
[2025-02-05] MEDS: Levothyroxine 200 MCG TAB PO (06:02)
[2025-02-05] MEDS: metOLazone 2.5 MG TAB PO (06:32)
[2025-02-05 07:25] LABS: Abs Immature Grans 0.04 10^3/uL (0.0-0.06); Absolute Basophil Count 0.04 10^3/uL (0.0-0.2); Absolute Lymphocyte Count 1.55 10^3/uL (1.2-3.4); Absolute Monocyte Count 0.87 10^3/uL (0.1-0.8); Absolute Neutrophil Count 6.26 10^3/uL (1.2-6.7); Basophils % 0.4 %; Eosinophils % 3.3 %; HGB 8.2 g/dL (11.2-15.7); Immature Grans % 0.4 %; Lymphocytes % 17.1 %; MCHC 30.4 % (32.0-36.0); MCV 72 fL (80-95); MPV 9.8 fL (8.0-11.0); Monocytes % 9.6 %; Neutrophils % 69.2 %; Platelet Count 456 10^3/uL (130-400); RBC 3.73 10^6/uL (3.93-5.22); RDW 19.9 % (11.7-14.6); RDW-SD 51.2 fL; WBC 9.06 10^3/uL (4.4-10.8)
[2025-02-05 07:49] LABS: Anion Gap 7.8 mmol/L (3-11); BUN 14 mg/dL (7-18); CO2 32.2 mmol/L (21.0-32.0); CREATININE 0.8 mg/dL (0.55-1.02); Calcium 7.6 mg/dL (8.5-10.1); Chloride 99 mmol/L (98-107); Estimated GFR 80.21 (mL/min/1.73m2); Glucose 87 mg/dL (74-106); Magnesium 2.2 mg/dL (1.8-2.4); Potassium 3.8 mmol/L (3.5-5.1); Sodium 139 mmol/L (136-145)
[2025-02-05 08:11] LABS: Microcytosis 2+
[2025-02-05 08:12] LABS: Poikilocytes 1+
[2025-02-05 08:27] VITALS: BP 94/62; PULSE 78; RESP 18; TEMP 36.7; O2SAT 94
[2025-02-05] MEDS: Empaglifozin 10 MG TAB PO (08:48)
[2025-02-05] MEDS: Acetaminophen 500 MG TAB 1000 MG PO (08:48)
[2025-02-05] MEDS: Potassium Chloride 20 MEQ TABCR PO ×2 (08:48→11:15)
[2025-02-05] MEDS: Ascorbic Acid 500 MG TAB 1000 MG PO (08:48)
[2025-02-05] MEDS: Lactobacillus Acidophilus CAP 1 CAP PO (08:49)
[2025-02-05] MEDS: Spironolactone 25 MG TAB PO (08:49)
[2025-02-05] MEDS: Nystatin POWDER 60 GM JAR TP (08:49)
[2025-02-05] MEDS: Norethindrone 5 MG TAB 10 MG PO (08:49)
[2025-02-05] MEDS: Fluticasone NASAL SPRAY 16 GM BTL NS (08:50)
[2025-02-05] MEDS: Normal Saline Flush 10 ML SYR IVP (08:50)
--- NOTE | 2025-02-05 09:41 | PDOC.HHF2F_ITS ---
Home Health Referral Home Health Orders Clinical synopsis of why skilled professionals are needed: This is a 69-year-old female patient with a PMHx significant for COPD,Left AKA, CHF with preserved ejection fraction, vaginal bleeding, atrial fibrillation, acute on chronic respiratory failure of presented to the ED on 02/01/25 for for evaluation of shortness of breath and hypoxia. Work-up in the ED was positive for pulmonary vascular congestion concerning for CHF as per chest XR. Blood work showed chronic microcytic anemia with H&H of 8 & 28 , MCV of 7, potassium at 3.2. The patient was admitted to the med-surg unit by the hospitalist for ongoing diuresis initiated in the ED with IV lasix 80 mg TID. The patient verbalized c/o abdominal pain but CT of the abdomen and pelvis completed on 01/30 was negative for acute findings and abdominal US was non-conclusive d/t body habitus. An echo was completed showing minimal change from previous study with LVEF 60% and mildly increased wall thickness, no significant valvular disease, probably normal RV function; study was borderline non-diagnostic and regional wall motion could not be assess but IVC was shown to collapse < 50% with respiration. .Iron studies where positive and 1 g of IV ferric carboxymaltose in the setting of CHF and iron deficiency anemia was given. The patient sustained a fall while initiating self-transfer to wheel chair w/o head strike or other traumatic injuries except for left forearm skin laceration. Dressing regimen on discharge: clean with saline, dry and apply mepilex every 3 days of one week, keep the area dry. The patient will be discharged home on oral torsemide with home health nursing resumption and new occupational, and physical therapy recommendation for slide board training, transfer training, and residual limb reshaping. Recommendations for PCP follow-up CMP, magnesium Considering IV infusion with ferric carboxymaltose in the setting of CHF and iron deficiency anemia ( 1g given inpatient) Adjusting torsemide dosage PRODUCTION SUPERVISOR referral Anemia work-up Discussed with Dr. Hicks Registered Nurse: Check all that apply Instruct on new or changed medication(s)/assess compliance: Ordered Assess for exacerbation of medical condition, instruct patient/caregivers on signs and symptoms to report for early detection: Ordered Physical Therapist: Check all that apply Increase strength & endurance for safe mobility at home: Ordered To design/establish home maintenance program: Ordered Institutional Nutrition Consultant: Assist with community resources: Ordered Assist with longwall headgate operator care planning: Ordered Home Bound Status Requires the aid of supportive device (check all that apply): Walker Describe why leaving home would require a considerable and taxing effort: Requires frequent rest periods and Oxygen Encounter Date and Reason: I certify that a FTF encounter for this patient was performed on February 05, 2025 and that such encounter was related to the primary reason the patient requires home health services. The encounter was conducted in the following manner: * By me as the certifying physician, TIMBER RIDER, PA or * By an inpatient physician, TIMBER RIDER or PA during an inpatient stay who communicated findings to me, Certification And Authentication I certify that I composed the above information based on my clinical judgment relating to this patient's medical condition and, if applicable, clinical findings communicated to me by the NPP or inpatient physician who performed the FTF encounter. Name of Provider that will be monitoring home health services: Alphonso Murphy
[2025-02-05 10:13] LABS: PHOSPHORUS 4.4 mg/dL (2.6-4.7)
--- NOTE | 2025-02-05 13:13 | PT.INIE ---
PT Notes Visit Reasons: chf exacerbation Physical Therapy Inpatient Initial Evaluation Date: 02/05/2025 Referring Doctor: Zoila De La Garza NP PT Orders: PT CONSULT: 'Safety Consult for D/C. Fall Safety Assessment. Precautions: Fall. Standard. Activity as tolerated. Admitting Daignoses/Patient Profile: Radha is a 69-year-old palliative care patient female with past medical history significant for B LE lymphedema, S/P L AKA, low back pain, L3-L4 spinal stenosis, and multiple L knee surgeries and R TKA who admitted for management of acute on CHF, chronic respiratory failure with hypoxia and hypercapnia heart failure with preserved EF, COPD, DAVID, hypothyroidism, and GERD. Patient was found on floor yesterday by morning by staff and needed to be assisted back to bed by 10 people for safety. PMHx: All Active Problems (Updated 02/01/25 @ 18:02 by Leyda Bautista MD) COPD exacerbation (Acute) Electrolyte disturbance (Acute) Acute on chronic hypoxic respiratory failure (Acute) Left above-knee amputee (Acute) On deep vein thrombosis (DVT) prophylaxis (Acute) Advanced care planning/counseling discussion (Acute) Elevated liver enzymes (Acute) Exertional shortness of breath (Acute) Heart failure with preserved ejection fraction (Acute) Wound dehiscence (Acute) Thickened endometrium (Acute) Postmenopausal bleeding (Acute) Venous stasis dermatitis (Acute) Chronic headaches (Chronic) Recent Neurology consult for possible papilledema. Urinary incontinence (Chronic) On Detrol Recurrent UTI (Chronic) Right ventricular dysfunction (Chronic) Knee pain, bilateral (Chronic 07/23/14) s/p bilat TKR (left infected with mult surg and decreased mobility) Morbid obesity (Acute 04/05/13) Sensorineural hearing loss, bilateral (Chronic 08/29/13) Advance directive on file (Acute) Low back pain with sciatica (Chronic 05/03/14) CT at [facility] L34 spinal stenosis Varicose veins of lower extremity (Chronic) Depression (Chronic) Grief at loss of child (Acute) Mixed conductive and sensorineural hearing loss of both ears (Acute) Right carpal tunnel syndrome (Acute) Arthritis of right hand (Acute) Impingement of right ulnar nerve (Acute) Dermoid cyst of neck (Acute) Microcalcifications of the breast (Acute) Neuropathy of left hand (Acute) Neuropathy of right hand (Acute) Bilateral carpal tunnel syndrome (Acute) Medical History Palliative care patient CHF (congestive heart failure) Atrial fibrillation COPD (chronic obstructive pulmonary disease) Hx pulmonary embolism (~2015) treated with lovenox x 3 months GERD (gastroesophageal reflux disease) had negative barium esophagram in 11/2022. Anxiety Lymphedema Hypothyroidism DAVID (obstructive sleep apnea) on BiPap Chronic respiratory failure with hypoxia and hypercapnia home BiPap Surgical History S/P AKA (above knee amputation) (~09/2024) Status post thyroidectomy History of fasciotomy Replacement of total knee joint Bilateral; left-became glxiasbg-abwuvvc-okzkkhma surgeriesFasciotomy, Foot (~1996) LEFT History of Surgical Procedure a. Right and left toal knee replacements. b. Left knee has been repeatedly operated on with slava surgies, three replacements. Social History/Home Situation: Lives with significant other in a private home. Has a ramp to enter the house. Independent with bed<>motorized wheelchair and chair<>motorized wheelchair using armrests for support and stand pivot technique. Able to cook meals while seated on motorized chair. SUBJECTIVE: Hopeful about going home today. Willing to show this provider how she transfers to and from her wheelchair. Complained of her R lower extremity going asleep especially if she stays too long on the commode--this was what caused her to fall yesterday. Agreeable to PT for transfer training and equipment procurement. DME: Motorized wheelchair, FWW, shower chair Objective: General Observation: Sitting on edge of bed. Oxygen supplementation via mask. High BMI. Schmitt catheter in place. Mental Status: Alert and oriented x 4 Pain: Generalized pain Vital Signs: Closely monitored by nursing staff ROM: Right Upper Extremity: Shoulder Flexion allowed up to 90 degrees. Shoulder abduction allowed up to 90 degrees. Elbow flexion WFL. Wrist flexion WFL. Functional opening and closing of hand WFL. Left Upper Extremity: Shoulder Flexion allowed up to 90 degrees. Shoulder abduction allowed up to 90 degrees. Elbow flexion WFL. Wrist flexion WFL. Functional opening and closing of hand WFL. Right Lower Extremity: Hip flexion allowed up to 90 degrees. Hip abduction 20 degrees. Knee flexion allowed up to 45 degrees and 90 degrees. Knee extension -45 degrees. Ankle dorsiflexion WFL. Ankle plantarflexion WFL. Left Lower Extremity: Hip flexion allowed up to 90 degrees. Hip abduction 20 degrees. Strength: Right Upper Extremity: Shoulder flexors 3-/5. Shoulder abductors 3-/5. Elbow flexors 3/5. Elbow extensors 3/5. Data Warehouse Administrator strong. Left Upper Extremity: Shoulder flexors 3-/5. Shoulder abductors 3-/5. Elbow flexors 3/5. Elbow extensors 3/5. Data Warehouse Administrator strong. Right Lower Extremity: Hip flexors 2-/5. Hip abductors 2-/5. Knee flexors 3-/5. Knee extensors 2-/5. Ankle dorsiflexors 2-/5. Ankle plantarflexors 2-/5. Left Lower Extremity: Hip flexors 2-/5. Hip abductors 2-/5. Sensation: Intact as to pain and pressure on bilateral lower extremities. Bed Mobility/Transfers: Moderate cueing provided for use of B hands as needed for support, movement sequence, AD management, and posture to reduce fall risk and minimize pain report Sit to supine stand by assist with HOB at 45 degrees Stand to sit stand by assist, one hand holding onto bed rail and other hand holding onto wheelchair arm rests for support Bed to bedside commode stand by assist, one hand holding onto bed rail and other hand holding onto wheelchair arm rests for support Bedside commode to motorized stand by assist, one hand holding onto bed rail and other hand holding onto wheelchair arm rests for support Gait: Unable at this time. Balance: Static Sitting: Good Dynamic Sitting: Fair Static Standing: Poor Dynamic Standing: Unable to perform Special Tests: Mobility Limitations Standardized [employer] [facility] 6 clicks Basic Mobility Inpatient Short Form: Raw Score: 9 CMS Score: 81% deficit Informed Consent/Education: Patient was instructed in purpose of PT consult and plan of care. Agreeable to proceed with established PT POC to achieve personal goals. ASSESSMENT: Radha was able to transfer from edge of bed to her motorized wheelchair with stand by assist. She used both hands for support, holding onto bed rail and the wheelchair armrests as needed. She felt safe positioning the wheelchair close to her L side as she uses her L AKA residual limb as additional support by initially placing it on the wheelchair as she pivots slowly with the R LE. She was able to transfer to and from the bedside commode with the R LE leading with both hands holding onto wheelchair and bedside commode for stability. Trying it with the R LE leading and with the wheelchair positioned close to her R side made her more unstable and short of breath. The subject of overworking the R lower extremity carrying a big load was presented to her which may increase her risk for falls at home, therefore training with slide board transfer was brought up as an alternate mode of transfer. Patient will highly benefit from continued PT services for strengthening, balance training, and residual limb shaping with patient goal of getiing a L AKA prosthesis when cleared by . Radha presents with clinical signs and symptoms consistent with current/admitting diagnoses that have resulted to mobility limitations, gait instability, generalized weakness, and impairment of motor control as demonstrated by the following impairment level findings: 1. Decreased strength to B UE/LE major muscle groups 2. Impaired standing balance 3. Impaired activity tolerance 4. Positive Stemmer sign in toes in B LE 5. Skin breakdown to R leg being managed by wound nurse 6. L transfermoral amputation 7. Lipolymphedema Impairments are continuing to contribute to the following functional limitations: 1. Inability to safely ambulate without assistive device and physical assistance 2. Increase completion time for mobility ADL performance 3. Increased fall risk 4. Increased risk for skin breakdown Patient is assessed as a 29610 moderate complexity based on the following: History: 69-year-old female with impairment level findings, functional limitations, and past medical history as indicated above Examination: Demonstrable impairment in strength, range of motion, and functional mobility level with underlying impairments and functional limitations as documented above Presentation: Stable Decision Makin moderate complexity Goals: Goals X1 week 1. Supine-Sit to 2. Sit-Supine independent 3. Sit-Stand independent 4. Stand-Sit independent 5. Bed-Chair independent 6. Chair-Bed independent Plan of Care/Treatment Plan: Patient will highly benefit from skilled physical therapy services including functional mobility training, bed mobility/transfer training, gait and balance training, therapeutic exercises, therapeutic activity, caregiver/staff/family education and training 1x/day, 7 days/week x 1 week. Plan of care has been reviewed with the POST DOC FELLOWSHIP providing the service under Physical Therapy direction. Initiate Physical Therapy intervention for strengthening, bed mobility, transfers, and use of assistive device. DISCHARGE RECOMMENDATIONS: Patient will benefit from home health PT services for transfer training, strengthening, residula limb reshaping, assessment of home safety, identify additional equipment needs, and establish a functional maintenance program that will increase ability of patient to remain at home. Consider resumption of complete decongestive therapy to address lymphedema symptoms. TREATMENT CODE/TIME: 66180 x 20 minutes for 4 units, 81560 x 41 minutes for 3 units (12:25-12:39 and 13:13-14:00). Thank you for the opportunity to participate in the care of this patient. Please do not hesitate to contact me with any questions or concerns regarding this patient's plan of care. Desi Pastor, PT, DPT, CLT [facility]
--- NOTE | 2025-02-05 14:29 | W.PM.DS.N ---
Date of service: 02/05/25 Time of Service: 14:36 DS: Diagnosis Discharge Diagnosis (1) Acute and chronic respiratory failure with hypoxia: Status: Acute (2) Acute on chronic heart failure with preserved ejection fraction: Status: Acute (3) Abdominal pain: Status: Acute (4) Fall: Status: Acute (5) Laceration of left forearm: Status: Acute (6) Palliative care patient: (7) Morbid obesity: Status: Acute (8) Left above-knee amputee: Status: Acute (9) DAVID (obstructive sleep apnea): (10) Hypothyroidism: (11) GERD (gastroesophageal reflux disease): (12) Anemia: Status: Chronic (13) Discharge planning issues: Status: Acute Discharge Plan Disposition Patient Disposition: Home W/Home Health Services Condition: Improving Discharge Details Reason For Visit: chf exacerbation Admit Date/Time: 02/01/25 18:07 Admit Provider: Juan Cesar Attending Provider: Juan Cesar Primary Care Provider: Alphonso Murphy Hospital Course Hospital Course: This is a 69-year-old female patient with a PMHx significant for COPD,Left AKA, CHF with preserved ejection fraction, vaginal bleeding, atrial fibrillation, acute on chronic respiratory failure of presented to the ED on 02/01/25 for for evaluation of shortness of breath and hypoxia. Work-up in the ED was positive for pulmonary vascular congestion concerning for CHF as per chest XR. Blood work showed chronic microcytic anemia with H&H of 8 & 28 , MCV of 7, potassium at 3.2. The patient was admitted to the med-surg unit by the hospitalist for ongoing diuresis initiated in the ED with IV lasix 80 mg TID. The patient verbalized c/o abdominal pain but CT of the abdomen and pelvis completed on 01/30 was negative for acute findings and abdominal US was non-conclusive d/t body habitus. An echo was completed showing minimal change from previous study with LVEF 60% and mildly increased wall thickness, no significant valvular disease, probably normal RV function; study was borderline non-diagnostic and regional wall motion could not be assess but IVC was shown to be plethoric with collapse < 50% with respiration. Iron studies where positive and 1 g of IV ferric carboxymaltose in the setting of CHF and iron deficiency anemia was given. The patient sustained a fall while initiating self-transfer to wheel chair w/o head strike or other traumatic injuries except for left forearm skin laceration. Dressing regimen on discharge: clean with saline, dry and apply mepilex every 3 days of one week, keep the area dry. The patient will be discharged home on oral torsemide with home health nursing resumption and new occupational, and physical therapy recommendation for slide board training, transfer training, and residual limb reshaping. Recommendations for PCP follow-up CMP, magnesium Considering IV infusion with ferric carboxymaltose in the setting of CHF and iron deficiency anemia ( 1g given inpatient) Adjusting torsemide dosage [facility] NURSE referral Anemia work-up Discussion about GLP-1 inhibitor for weight management Discussed with Dr. Hicks Recommendations for Follow Up Recommended tests to be ordered by follow up provider: CMP and, phosphate, mag Home Meds and New Rx's Prescriptions: New torsemide 40 mg tablet 40 mg PO BID Qty: 20 0RF Continued albuterol sulfate 90 mcg/actuation HFA aerosol inhaler 1 - 2 puff Inhalation Q6H PRN Qty: 1 11RF fluticasone propionate [Flonase Allergy Relief] 50 mcg/actuation spray,suspension 1 spray NS DAILY Qty: 1 8RF potassium chloride [Klor-Con M20] 20 mEq tablet,ER particles/crystals 20 meq PO DAILY Qty: 90 3RF alclometasone 0.05 % cream 1 applic topical BID PRN (Reason: itching) Qty: 45 1RF gabapentin 300 mg capsule 600 mg PO TID PRN levothyroxine 200 mcg tablet 200 mcg PO DAILY Qty: 90 3RF ascorbic acid (vitamin C) 1,000 MG tablet 1,000 mg PO DAILY (DME) Aerochamber Mini 1 EACH spacer 1 ea Inhalation PRN Qty: 1 Rx Instructions: DIRECTED WITH INHALER BiPAP Inhalation Gas 5 l IN DIRECTED Rx Instructions: sleep apnea ([facility] sleep lab 2013) uses with oxygen betamethasone, augmented 0.05 % lotion 1 applic topical BID PRN (Reason: allergic reaction) Qty: 60 2RF oxygen Inhalation 3 l Intranasal DIRECTED Patient Comments: Continuous and uses with bipap Rx Instructions: 3L/NC continuous pantoprazole 20 mg tablet,delayed release (DR/EC) 20 mg PO DAILY Qty: 90 3RF Rx Instructions: 04/13/23 Per GI. -hb sertraline 50 mg tablet 50 mg PO DAILY Qty: 90 3RF metolazone 2.5 mg tablet 2.5 mg PO .q tues/frid Qty: 20 2RF ketoconazole 2 % cream 1 applic topical BID PRN (Reason: facial rash) Qty: 60 1RF norethindrone acetate [Gallifrey] 5 mg tablet See Rx Instructions .ROUTE .COMPLEX Qty: 180 1RF Dose Instruction: TAKE TWO TABLETS BY MOUTH TWICE A DAY Rx Instructions: TAKE TWO TABLETS BY MOUTH TWICE A DAY Jardiance 10 mg tablet 10 mg PO QAM Qty: 90 3RF nystatin 100,000 unit/gram powder 1 applic TP BID Qty: 30 5RF BiomePRO 50 billion cell capsule,delayed release(DR/EC) 1 cap PO DAILY Qty: 4 0RF Rx Instructions: Take 3 hours apart form any antibiotics ipratropium-albuterol 0.5 mg-3 mg(2.5 mg base)/3 mL solution for nebulization 3 ml inhalation Q6H PRN (Reason: shortness of breath or wheezing) Qty: 90 0RF spironolactone 25 mg Tablet 25 mg PO DAILY Qty: 30 0RF Held prednisone 20 mg tablet 20 mg PO DAILY Qty: 10 0RF Hold Instructions: If completed refer to PCP for renewal Discontinued furosemide 80 mg tablet 80 mg PO BID@0830,1600 Qty: 180 3RF Discharge Instructions Instructions: Heart Failure, Adult (DC) Referrals: Alphonso Murphy MD [Primary Care Provider, Medicine] Referral Note: Follow-up within 7 days of discharge please Activity:: Activity as Tolerated Equipment/Supplies:: W/C Diet:: heart helathy DS: Summary Time Spent with Patient providing and/or coordinating discharge services: Greater than 30 minutes Status at Discharge Functional status at discharge: wheelchair bound Overall status at discharge: patient is progressing back to baseline Mental Status: mental status grossly normal Speech and Movement: speech and movement normal Mood: congruent mood Affect: normal affect Quality:SDOH Health Related Social Needs: Health related social needs material hardship Health related social needs details Pt refuses to answer questions Health related social needs details: Pt refuses to answer questions Exam Psych Mental Status: mental status grossly normal Speech and Movement: speech and movement normal Mood: congruent mood Affect: normal affect DS: Data Vitals/I&O Vitals and I&O: Vital Signs Temperature 36.7 C 02/05/25 08:27 Temperature Source Temporal Artery Scan 02/05/25 08:27 Pulse 78 02/05/25 08:27 Pulse Rhythm Irregular 02/01/25 20:45 Pulse 85 02/01/25 19:50 Respiratory Rate 18 02/05/25 08:27 Respiratory Effort Short of Breath 02/01/25 20:45 Respiratory Depth Normal 02/01/25 20:45 Respiratory Pattern Tachypnea 02/01/25 20:45 Blood Pressure 94/62 L 02/05/25 08:27 Blood Pressure Mean 72 02/05/25 08:27 Pulse Oximetry 94 02/05/25 08:27 Oxygen Delivery Method Nasal Cannula 02/05/25 08:27 Oxygen Flow Rate 2 02/05/25 08:27 Pain Level 6 02/05/25 08:48 Comment pt refused vitals 02/04/25 20:02 Intake & Output 02/04/25 02/05/25 02/05/25 23:59 11:59 23:59 Intake Total 544 / 544 Output Total 400 / 875 850 / 2150 1300 / 2150 Balance 144 / -331 -850 / -2150 -1300 / -2150 Weight 166.2 kg Intake: IV 144 / 144 Oral 400 / 400 Output: Urine 400 / 875 850 / 2150 1300 / 2150 Other: Urine Color Light Anay Light Anay Yellow Urine Appearance Clear Clear Clear Cloudy Urine Odor Normal Stool Size Small Stool Characteristics Soft Formed Brown Data Completed and Pending Labs on day of discharge: Labs from last 24 hours 02/05/25 02/04/25 07:10 16:50 WBC 9.06 8.40 RBC 3.73 L 3.55 L Hgb 8.2 L 7.6 L Hct 27.0 L 25.2 L MCV 72 L 71 L MCH 22.0 L 21.4 L MCHC 30.4 L 30.2 L RDW 19.9 H 19.9 H Plt Count 456 H 428 H MPV 9.8 9.6 Immature Gran % 0.4 Neutrophils % 69.2 Lymphocytes % 17.1 Monocytes % 9.6 Eosinophils % 3.3 Basophils % 0.4 Nucleated RBC % 0.0 Absolute Neutrophils 6.26 Absolute Lymphocytes 1.55 Absolute Monocytes 0.87 H Absolute Eosinophils 0.30 Absolute Basophils 0.04 RBC Morphology See Below Poikilocytosis 1+ Microcytosis 2+ Sodium 139 Potassium 3.8 Chloride 99 Carbon Dioxide 32.2 H Anion Gap 7.8 BUN 14 Creatinine 0.8 Est GFR (CKD-EPI 2020) 80.21 Glucose 87 Calcium 7.6 L Phosphorus 4.4 Magnesium 2.2 Preliminary micro results at discharge 02/01/25 16:16 Blood Blood Culture - Preliminary NO GROWTH 72 HOURS 02/01/25 15:42 Blood Blood Culture - Preliminary NO GROWTH 72 HOURS PFSH All Active Problems (Updated 02/04/25 @ 20:43 by Zoila De La Garza APRN) Laceration of left forearm (Acute) Fall (Acute) Abdominal pain (Acute) Discharge planning issues (Acute) Anemia (Chronic) Acute on chronic heart failure with preserved ejection fraction (Acute) Acute and chronic respiratory failure with hypoxia (Acute) COPD exacerbation (Acute) Electrolyte disturbance (Acute) Acute on chronic hypoxic respiratory failure (Acute) Left above-knee amputee (Acute) On deep vein thrombosis (DVT) prophylaxis (Acute) Advanced care planning/counseling discussion (Acute) Elevated liver enzymes (Acute) Exertional shortness of breath (Acute) Heart failure with preserved ejection fraction (Acute) Wound dehiscence (Acute) Thickened endometrium (Acute) Postmenopausal bleeding (Acute) Venous stasis dermatitis (Acute) Chronic headaches (Chronic) Recent Neurology consult for possible papilledema. Urinary incontinence (Chronic) On Detrol Recurrent UTI (Chronic) Right ventricular dysfunction (Chronic) Knee pain, bilateral (Chronic 07/23/14) s/p bilat TKR (left infected with mult surg and decreased mobility) Morbid obesity (Acute 04/05/13) Sensorineural hearing loss, bilateral (Chronic 08/29/13) Advance directive on file (Acute) Low back pain with sciatica (Chronic 05/03/14) [place] [facility] [place] Varicose veins of lower extremity (Chronic) Depression (Chronic) Grief at loss of child (Acute) Mixed conductive and sensorineural hearing loss of both ears (Acute) Right carpal tunnel syndrome (Acute) Arthritis of right hand (Acute) Impingement of right ulnar nerve (Acute) Dermoid cyst of neck (Acute) Microcalcifications of the breast (Acute) Neuropathy of left hand (Acute) Neuropathy of right hand (Acute) Bilateral carpal tunnel syndrome (Acute) Medical History Palliative care patient CHF (congestive heart failure) Atrial fibrillation COPD (chronic obstructive pulmonary disease) Hx pulmonary embolism (~2015) treated with lovenox x 3 months GERD (gastroesophageal reflux disease) had negative barium esophagram in 11/2022. Anxiety Lymphedema Hypothyroidism ADVID (obstructive sleep apnea) on BiPap Chronic respiratory failure with hypoxia and hypercapnia home BiPap Surgical History S/P AKA (above knee amputation) (~09/2024) Status post thyroidectomy History of fasciotomy Replacement of total knee joint Bilateral; left-became pbyfywso-esydcla-uxjmnanm surgeries Fasciotomy, Foot (~1996) LEFT History of Surgical Procedure a. Right and left toal knee replacements. b. Left knee has been repeatedly operated on with slava surgies, three replacements. Family History Mother Diabetes Personal history of malignant neoplasm LUNG Father Personal history of malignant neoplasm BRAIN Grandfather No problems noted. Grandfather No problems noted. Grandmother No problems noted. Grandmother No problems noted. Social History (Updated 11/28/24 @ 21:52 by Brandan Hicks) Smoking/Tobacco Use Status: Former Tobacco Use tobacco type: cigarettes Quit Date: 01/21/21 Second Hand Exposure: Yes Smoking risk assessment performed?: Yes Alcohol Intake: never Drug use: Never Substance use type: does not use Counseling given: No Housing: apartment Communication Needs: Hard of Hearing and Corrective Lenses Pets and animals: Yes Pets and animals: cat(s) Sexually active: Yes Current gender identity: female What is your relationship status?: never How often do you talk on the phone with friends or family?: decline to answer How often do you get together with friends or relatives?: decline to answer How often do you attend jehovah's witness or jainism services?: decline to answer Do you belong to any clubs or organized social groups?: no Panel score (0-1 are the most socially isolated patients): 0 Seatbelt use: never Do you feel safe at home: Yes Do you feel safe in your relationship?: Yes Additional Social history: Lives in her own apartment in [facility], [facility] [employer] Time Spent with Patient Time Spent with Patient: >85 minutes Time was spent: preparing to see the patient(eg.review tests), obtaining and/or reviewing separately otained hiistory, ordering medications,tests, procedures, referring, communicating with other health healthcare administration intern, indepentently interpreting results, counseling the patient and care coordination
[2025-02-05 14:50] VITALS: BP 104/47
--- NOTE | 2025-02-05 17:31 | CMDISCH_ITS ---
Date of service: 02/05/25 Time of Service: 14:45 LACE Index Scoring Tool Questions: Length of Stay (in days): 4 - 6 Was the patient admitted via the E.D.?: Yes Comorbidities: Congestive Heart Failure and Chronic Pulmonary Disease E.D. Visits: 7 Answers: Total Score: 16 Risk of Readmission: High Risk Care Management Discharge Plan Reason for Hospitalization: CHF Discharge Plan: Radha was discharged home today with continuation of her HH RN and new PT and [employer] MECH[employer]IC. She will f/u with her PCP and her other community providers, and continue per her plan of care. Radha took the [facility] bus home at her own request. Patient/Family Education Needs: Review of discharge instructions, activity, limitations, and discuss Ask me 3. Services Needed at Discharge: Home Health Care Services (RN, PT, ELECT[employer] MECH[employer]IC) SDOH Health Related Social Needs: Health related social needs material hardship Health related social needs details Pt refuses to answ er questions Health related social needs details: Pt refuses to answer questions
== END 2025-02-05 15:56 | disposition home health service (06) | DRG 291 ==
LOC: ER 18:02 → MS 20:32
PROVIDERS: Family Medicine; Nurse Practitioner Acute Care; Admitting Provider Hospitalist; Emergency Provider Emergency Medicine; PCP Family Medicine; Responsible Provider Nurse Practitioner Acute Care; Visit Provider Hospitalist
DX: I50.33 Acute on chronic diastolic (congestive) heart failure (principal); J96.21 Acute and chronic respiratory failure with hypoxia; Z68.44 Body mass index [BMI] 60.0-69.9, adult; J96.12 Chronic respiratory failure with hypercapnia; E66.01 Morbid (severe) obesity due to excess calories; Z89.612 Acquired absence of left leg above knee; E89.0 Postprocedural hypothyroidism; G47.33 Obstructive sleep apnea (adult) (pediatric); K21.9 Gastro-esophageal reflux disease without esophagitis; S51.812A Laceration without foreign body of left forearm, initial encounter; W19.XXXA Unspecified fall, initial encounter; Z79.899 Other long term (current) drug therapy; Z99.81 Dependence on supplemental oxygen; J44.9 Chronic obstructive pulmonary disease, unspecified; R10.11 Right upper quadrant pain; R74.01 Elevation of levels of liver transaminase levels; I48.91 Unspecified atrial fibrillation; I89.0 Lymphedema, not elsewhere classified; Z96.653 Presence of artificial knee joint, bilateral; Z86.711 Personal history of pulmonary embolism; I87.2 Venous insufficiency (chronic) (peripheral); R51.9 Headache, unspecified; H90.3 Sensorineural hearing loss, bilateral; M48.061 Spinal stenosis, lumbar region without neurogenic claudication; F32.A Depression, unspecified; F41.9 Anxiety disorder, unspecified; Z87.891 Personal history of nicotine dependence; E87.6 Hypokalemia; R32 Unspecified urinary incontinence; D50.9 Iron deficiency anemia, unspecified
CPT/HCPCS: 00123; 36415; 80048; 80053; 82805; 85027; 86850; 86900; 86901; 87040; 87637; 93005; 96365; 96372; 96375; 97162; 97530; 99291; J1650; 71045; 82272; 82607; 82728; 82746; 83540; 83550; 83605; 83735; 83880; 84100; 84484; 85025; 85045; 86870; 86880; 86885; 93010; 93306; 99222; 99233; 99239; J0696; J1885; J1938; J3490; Q0138

== ENCOUNTER 2025-02-07 17:27 | Emergency (ER) | payer MEDICARE, MEDICAID, SELFPAY ==
[2025-02-07 17:30] VITALS: BP 110/74; PULSE 85; RESP 16; TEMP 37.1; O2SAT 92
--- NOTE | 2025-02-07 19:00 | RT.EKG_ITS ---
APPROVED REPORT Exam: Resting ECG Reason for Exam: epigastric pain Patient Location: E HR:80 bpm ECG Measurements Heart Rate 80 AXIS IA 180 P 40 QRSd 103 QRS 41 QT 399 T 6 QTc 460 Conclusion Sinus rhythm 80 normal axis no stemi
[2025-02-07 19:08] VITALS: BP 132/58; PULSE 79; RESP 28; O2SAT 92
[2025-02-07 19:09] VITALS: BP 110/74; PULSE 85; RESP 28; TEMP 37.1; O2SAT 92
[2025-02-07 19:33] LABS: Abs Immature Grans 0.17 10^3/uL (0.0-0.06); Absolute Eosinophil Count 0.29 10^3/uL (0.0-0.7); Absolute Monocyte Count 0.73 10^3/uL (0.1-0.8); Absolute Neutrophil Count 10.29 10^3/uL (1.2-6.7); Basophils % 0.5 %; Eosinophils % 2.3 %; HCT 32.1 % (36.0-46.0); HGB 9.5 g/dL (11.2-15.7); Immature Grans % 1.3 %; Lymphocytes % 9.6 %; MCH 21.6 pg (27.0-33.0); MCHC 29.6 % (32.0-36.0); MCV 73 fL (80-95); Monocytes % 5.7 %; Neutrophils % 80.6 %; Nucleated RBC 0.2 % (0.0-0.3); Platelet Count 565 10^3/uL (130-400); RBC 4.39 10^6/uL (3.93-5.22); RDW 21.2 % (11.7-14.6); RDW-SD 51.8 fL; WBC 12.77 10^3/uL (4.4-10.8)
[2025-02-07 19:35] LABS: Absolute Basophil Count 0.06 10^3/uL (0.0-0.2); Absolute Lymphocyte Count 1.23 10^3/uL (1.2-3.4)
[2025-02-07 19:51] LABS: Anisocytosis 2+; Diff Comment RBC Morph Reviewed; Hypochromasia 2+; Microcytosis 2+
[2025-02-07 19:52] LABS: ALT 81 U/L (14-59); AST 67 U/L (15-37); Albumin 2.7 g/dL (3.4-5.0); Alkaline Phosphatase 97 U/L (46-116); Anion Gap 6.3 mmol/L (3-11); BUN 10 mg/dL (7-18); Bilirubin, Total 1.2 mg/dL (0.2-1.0); CO2 31.7 mmol/L (21.0-32.0); CREATININE 0.7 mg/dL (0.55-1.02); Calcium 8.9 mg/dL (8.5-10.1); Chloride 100 mmol/L (98-107); Estimated GFR 94.15 (mL/min/1.73m2); Glucose 121 mg/dL (74-106); Poikilocytes 2+; Potassium 4.1 mmol/L (3.5-5.1); Sodium 138 mmol/L (136-145); Total Protein 8.1 g/dL (6.4-8.2)
[2025-02-07 19:53] LABS: MPV 9.3 fL (8.0-11.0)
[2025-02-07] MEDS: Omnipaque 350 MG/ML 100 ML BTL IJ (19:53)
[2025-02-07] MEDS: Normal Saline - Diluent 50 ML VIAL IJ (19:55)
[2025-02-07 19:57] LABS: Magnesium 2.3 mg/dL (1.8-2.4); Troponin I 5 ng/L (<or=51)
--- NOTE | 2025-02-07 19:58 | DI.CT_ITS ---
Exam(s) CT ABDOMEN PELVIS W EXAM: CT ABDOMEN PELVIS W CLINICAL HISTORY: RUQ pain, vomiting TECHNIQUE: Imaging Protocol: Axial computed tomography images with coronal and sagittal reformatted images were created and reviewed. CONTRAST MATERIAL: Intravenous: Omnipaque 350 Contrast volume:100 mL Oral: No COMPARISON: CT CHEST FOR PULMONARY EMBOLUS from 01/07/2017 CT CHEST FOR PULMONARY EMBOLUS from 01/10/[address] CHEST PE CTA from 11/29/[address] CHEST PE CTA from 02/27/2024 CR XR FEMUR LT from 09/15/[address] ABDOMEN PELVIS W from 01/30/2025 FINDINGS: ABDOMEN: Lung Bases: There are bilateral basilar infiltrates present. Cardiomegaly. Liver: Normal density. No measurable mass. Hepatomegaly. Portal, Superior Mesenteric, and Splenic Veins: Unremarkable. Gallbladder and Biliary Tract: No radiodense calculus or dilation. The gallbladder is distended measuring 5 cm in diameter. Pancreas: Normal density, no abnormal calcifications or inflammatory process. Spleen: Normal. Adrenals: No masses seen. Kidneys: Normal size, contour and axis. No radiodense stones or obstructive uropathy. No masses seen. Abdominal Aorta: Abdominal portion non-dilated. Atherosclerotic calcification is present. Bowel: There is diverticulosis in the colon but no evidence of acute diverticulitis. There is no evidence of bowel wall thickening or bowel obstruction. Appendix is unremarkable. Peritoneal Cavity: There is a trace amount of perihepatic ascites. No free air. Lymph Nodes: Within normal limits. Bones: Within normal limits for the patient's age. There is an old L1 compression deformity. There is again seen a left femoral fracture. There has been interval removal of the femoral component of the left knee arthroplasty. Soft Tissues: There is a fat containing umbilical hernia. PELVIS: Bladder: Symmetric distention, no gross wall thickening. Reproductive Organs: The uterus is enlarged and lobulated suggesting multiple uterine fibroids. There is an IUD in position. Lymph Nodes: Within normal limits. Bones: Within normal limits for the patient's age. IMPRESSION: 1. Bilateral basilar infiltrates which may represent atelectasis or pneumonia. Please correlate clinically. 2. Distended gallbladder. No evidence of cholelithiasis or biliary ductal dilatation. Gallbladder ultrasound may be obtained for further characterization. 3. Colonic diverticulosis without evidence of acute diverticulitis. 4. The preliminary [facility] report was reviewed. RADIATION DOSE DELIVERED: 2,819.4mGy.cm Total DLP DATA REPOSITORY: All CT scans at this facility are submitted to the National Radiology Data Registry (NRDR) Dose Index Registry (DIR) with the [employer] (ACR). RADIATION OPTIMIZATION: All CT scans at this facility use at least one of these dose optimization techniques: automated exposure control; mA and/or kV adjustment per patient size (includes targeted exams where dose is matched to clinical indication); or iterative reconstruction.
--- NOTE | 2025-02-07 20:02 | DI.CT_ITS ---
Exam(s) CT THORAX CTA EXAM: CT THORAX CTA CLINICAL HISTORY: RUQ pain, dyspnea. TECHNIQUE: Imaging Protocol: Axial CT angiography was performed with multi- slice acquisition and multi-planar and/or 3D reconstructions. Lung Computer Aided Detection (CAD) was utilized. CONTRAST MATERIAL: Intravenous: Omnipaque 350 contrast volume:100 mL COMPARISON: CT CT ABDOMEN PELVIS W from 02/07/2025 FINDINGS: Tracheobronchial tree: Patent where visualized. No bronchiectasis. Pulmonary parenchyma: There are bilateral basilar infiltrates, right greater than left. No architectural distortion. Pulmonary Arteries: The pulmonary arteries are insufficiently opacified for evaluation of pulmonary emboli secondary to the timing of the bolus. No large central pulmonary embolism is present. Mediastinum and Mansi: No dominant adenopathy or fluid collection. The esophagus is unremarkable. Pleura: No effusion or pneumothorax. Heart: The heart is not dilated. There are coronary artery calcifications present. No pericardial effusion. Aorta: Thoracic aorta non-dilated. No evidence of dissection. Atherosclerotic calcification is present. Upper abdomen: Please see the CT scan of the abdomen and pelvis report. Soft tissues: Unremarkable. Bones: Within normal limits for the patient's age. IMPRESSION: 1. No evidence of a thoracic aortic dissection or aneurysm. 2. Bilateral basilar infiltrates which may represent atelectasis or possible pneumonia. Please correlate clinically. 3. The preliminary [facility] report was reviewed. RADIATION DOSE DELIVERED: 2,819.4mGy.cm Total DLP 2,819.4mGy.cm Total DLP DATA REPOSITORY: All CT scans at this facility are submitted to the National Radiology Data Registry (NRDR) Dose Index Registry (DIR) with the [employer] (ACR). RADIATION OPTIMIZATION: All CT scans at this facility use at least one of these dose optimization techniques: automated exposure control; mA and/or kV adjustment per patient size (includes targeted exams where dose is matched to clinical indication); or iterative reconstruction.
[2025-02-07] MEDS: ACETAMINOPHEN 500 MG/50 ML BAG 200 MG IVPB (20:10)
[2025-02-07] MEDS: Famotidine 20 MG/2 ML VIAL IVP (20:11)
[2025-02-07] MEDS: Prochlorperazine 10 MG/2 ML VIAL 5 MG IVP (20:11)
[2025-02-07 20:37] LABS: Lipase 2224 U/L (<78)
--- NOTE | 2025-02-07 20:51 | DI.[facility]_ITS ---
PROCEDURE INFORMATION: Exam: CT Abdomen And Pelvis With Contrast Exam date and time: 02/07/2025 7:45 PM Age: 69 years old Clinical indication: Abdominal pain; Other: Ruq pain, vomiting TECHNIQUE: Imaging protocol: Computed tomography of the abdomen and pelvis with contrast. Contrast material: OMNIPAQUE 350; Contrast volume: 100 ml; Contrast route: INTRAVENOUS (IV); COMPARISON: CT ABDOMEN PELVIS W 01/30/2025 4:23 PM FINDINGS: Lungs: Mild bibasilar atelectasis. Trace right pleural effusion. Liver: Normal. No mass. Gallbladder and biliary ducts: There may be some layering debris in the gallbladder. Suspect mild gallbladder wall thickening. Pancreas: Normal. No ductal dilation. Spleen: Normal. No splenomegaly. Adrenal glands: Normal. No mass. Kidneys and ureters: Normal. No hydronephrosis. Stomach and bowel: Extensive diverticulosis without acute diverticulitis. Appendix: The appendix is well seen, within normal limits. Intraperitoneal space: Unremarkable. No free air. No significant fluid collection. Vasculature: Unremarkable. No abdominal aortic aneurysm. Lymph nodes: Unremarkable. No enlarged lymph nodes. Urinary bladder: The bladder is not well distended. Reproductive: Enlarged, fibroid uterus with IUD in place. Bones/joints: Heterotopic bone formation noted at the mid femur level. Mild lumbar spondylosis. Soft tissues: There is a small, fat containing periumbilical hernia. IMPRESSION: Concern for gallbladder disease. Recommend sonography. Dictated and Authenticated by: Betty Fernandez MD. Orderin Sonia Mejia MD
--- NOTE | 2025-02-07 20:59 | DI.[facility]_ITS ---
PROCEDURE INFORMATION: Exam: CTA Chest With Contrast Exam date and time: 02/07/2025 7:45 PM Age: 69 years old Clinical indication: Dyspnea and other: Vomiting; Other: Ruq abd pain; Ruq pain, vomiting, dyspnea TECHNIQUE: Imaging protocol: Computed tomographic angiography of the chest with contrast. Exam focused on the arteries. 3D rendering (Not supervised by radiologist): MIP and/or 3D reconstructed images were created by the technologist. Radiation optimization: All CT scans at this facility use at least one of these dose optimization techniques: automated exposure control; mA and/or kV adjustment per patient size (includes targeted exams where dose is matched to clinical indication); or iterative reconstruction. Contrast material: OMNIPAQUE 350; Contrast volume: 100 ml; Contrast route: INTRAVENOUS (IV); COMPARISON: CT CHEST PE CTA 02/27/2024 12:26 PM FINDINGS: Pulmonary arteries: The pulmonary artery bolus is well below 200 Hounsfield units, nondiagnostic. Aorta: The aorta is normal in course and caliber. Mild atherosclerotic change noted. No evidence for aneurysm or dissection. Lungs: Mild bibasilar atelectasis. Pleural spaces: Trace right pleural effusion. Heart: Unremarkable. No cardiomegaly. No pericardial effusion. Coronary arteries: Coronary artery calcifications identified. Lymph nodes: Unremarkable. No enlarged lymph nodes. Gallbladder and biliary ducts: There may be some mild gallbladder wall thickening. See separate abdomen report. Bones/joints: Unremarkable. No acute fracture. Soft tissues: Unremarkable. IMPRESSION: 1. No evidence for aneurysm or dissection. 2. Nondiagnostic pulmonary artery bolus. If clinical suspicion for pulmonary embolism is high, consider bilateral lower extremity duplex sonography to assess for DVT. 3. Mild bibasilar atelectasis. Dictated and Authenticated by: Betty Fernandez MD. Orderin Sonia Mejia MD
[2025-02-07] MEDS: PIPERACILLIN/TAZO 3.375 GM in Normal Saline 50 ML IVPB (21:34)
--- NOTE | 2025-02-07 22:05 | NUR.NOTE ---
Nursing Note:report and transfer of care given to Kimmy NEGRO by Dillan Rosado RN at this time.
[2025-02-07 22:08] LABS: Bilirubin Small (Negative); Blood Large (Negative); Clarity Clear (Clear); Glucose Negative (Negative); Ketones Negative (Negative); Leukocyte Esterase Negative (Negative); Nitrite Negative (Negative); Specific Gravity 1.015 (1.005-1.025); pH 6.5 (5-8)
--- NOTE | 2025-02-07 22:10 | W.PM.HP.N ---
Date of service: 02/07/25 Time of Service: 22:10 Assessment and Plan Assessment and plan (1) Acute biliary pancreatitis: Status: Acute (2) Heart failure with preserved ejection fraction: Status: Acute (3) Elevated liver enzymes: Status: Acute (4) Postmenopausal bleeding: Status: Acute (5) Anemia: Status: Chronic (6) Chronic respiratory failure with hypoxia and hypercapnia: (7) DAVID (obstructive sleep apnea): (8) On deep vein thrombosis (DVT) prophylaxis: Status: Acute Assessment and plan: h/o PEs, will use enoxaparin dosed for her BMI PFSH All Active Problems (Updated 02/07/25 @ 22:23 by Brandan Hicks) Acute biliary pancreatitis (Acute) Laceration of left forearm (Acute) Anemia (Chronic) COPD exacerbation (Acute) Electrolyte disturbance (Acute) Acute on chronic hypoxic respiratory failure (Acute) Left above-knee amputee (Acute) Advanced care planning/counseling discussion (Acute) On deep vein thrombosis (DVT) prophylaxis (Acute) Elevated liver enzymes (Acute) Exertional shortness of breath (Acute) Heart failure with preserved ejection fraction (Acute) Wound dehiscence (Acute) Thickened endometrium (Acute) Postmenopausal bleeding (Acute) Venous stasis dermatitis (Acute) Bilateral carpal tunnel syndrome (Acute) Neuropathy of right hand (Acute) Neuropathy of left hand (Acute) Microcalcifications of the breast (Acute) Dermoid cyst of neck (Acute) Impingement of right ulnar nerve (Acute) Arthritis of right hand (Acute) Right carpal tunnel syndrome (Acute) Mixed conductive and sensorineural hearing loss of both ears (Acute) Grief at loss of child (Acute) Depression (Chronic) Varicose veins of lower extremity (Chronic) Low back pain with sciatica (Chronic 05/03/14) [place] [facility] [place] Advance directive on file (Acute) Sensorineural hearing loss, bilateral (Chronic 08/29/13) Morbid obesity (Acute 04/05/13) Knee pain, bilateral (Chronic 07/23/14) s/p bilat TKR (left infected with mult surg and decreased mobility) Right ventricular dysfunction (Chronic) Recurrent UTI (Chronic) Urinary incontinence (Chronic) On Detrol Chronic headaches (Chronic) Recent Neurology consult for possible papilledema. Medical History Palliative care patient CHF (congestive heart failure) Atrial fibrillation COPD (chronic obstructive pulmonary disease) Hx pulmonary embolism (~2015) treated with lovenox x 3 months GERD (gastroesophageal reflux disease) had negative barium esophagram in 11/2022. Anxiety Lymphedema Hypothyroidism DAVID (obstructive sleep apnea) on BiPap Chronic respiratory failure with hypoxia and hypercapnia home BiPap Surgical History S/P AKA (above knee amputation) (~09/2024) Status post thyroidectomy History of fasciotomy Replacement of total knee joint Bilateral; left-became ihvnkzxk-vafietm-nxtsmjmt surgeries Fasciotomy, Foot (~1996) LEFT History of Surgical Procedure a. Right and left toal knee replacements. b. Left knee has been repeatedly operated on with slava surgies, three replacements. Family History Mother Diabetes Personal history of malignant neoplasm LUNG Father Personal history of malignant neoplasm BRAIN Grandfather No problems noted. Grandfather No problems noted. Grandmother No problems noted. Grandmother No problems noted. Social History (Updated 11/28/24 @ 21:52 by Brandan Hicks) Smoking/Tobacco Use Status: Former Tobacco Use tobacco type: cigarettes Quit Date: 01/21/21 Second Hand Exposure: Yes Smoking risk assessment performed?: Yes Alcohol Intake: never Drug use: Never Substance use type: does not use Counseling given: No Housing: apartment Communication Needs: Hard of Hearing and Corrective Lenses Pets and animals: Yes Pets and animals: cat(s) Sexually active: Yes Current gender identity: female What is your relationship status?: never How often do you talk on the phone with friends or family?: decline to answer How often do you get together with friends or relatives?: decline to answer How often do you attend restorationism or samaritan services?: decline to answer Do you belong to any clubs or organized social groups?: no Panel score (0-1 are the most socially isolated patients): 0 Seatbelt use: never Do you feel safe at home: Yes Do you feel safe in your relationship?: Yes Additional Social history: Lives in her own apartment in [facility], uses electric scooter Meds Allergies and Home Medications Allergies Allergy/AdvReac Type Severity Reaction Status Date / Time hydrocodone Allergy Severe ITCHING Verified 01/30/25 12:26 morphine Allergy Mild PRURITIS Verified 01/30/25 12:26 oxycodone Allergy Mild ITCHING Verified 01/30/25 12:26 Home Medications ?Medication ?Instructions ?Recorded ?Confirmed ?Type ascorbic acid (vitamin C) 1,000 mg 1,000 mg PO DAILY 11/25/12 02/07/25 History tablet inhalational spacing device ##1 12/21/13 02/07/25 History (Aerochamber Mini) Bipap 5 l IN DIRECTED 07/23/14 02/07/25 History betamethasone, augmented 0.05 % 1 applic topical BID PRN allergic 06/20/21 02/07/25 Rx lotion reaction #60 mL oxygen 3 l intranasal DIRECTED 04/02/24 02/07/25 History L. acidophilus,casei,rhamnosus 50 1 cap PO DAILY #4 caps 06/04/24 02/07/25 Rx billion cell capsule,delayed release (BiomePRO) nystatin 100,000 unit/gram topical 1 applic topical BID intertrigo 06/04/24 02/07/25 Rx powder #30 grams albuterol sulfate 90 mcg/actuation 1 - 2 puff inhalation Q6H PRN ##1 07/17/24 02/07/25 Rx aerosol inhaler fluticasone propionate 50 1 spray NS DAILY ##1 07/17/24 02/07/25 Rx mcg/actuation nasal spray,suspension (Flonase Allergy Relief) potassium chloride 20 mEq 20 meq PO DAILY #90 tabs 07/17/24 02/07/25 Rx tablet,extended release(part/cryst) (Klor-Con M) pantoprazole 20 mg tablet,delayed 20 mg PO DAILY #90 tabs 07/26/24 02/07/25 Rx release sertraline 50 mg tablet 50 mg PO DAILY #90 tabs 07/26/24 02/07/25 Rx gabapentin 300 mg capsule 600 mg PO TID PRN 10/11/24 02/07/25 History ipratropium 0.5 mg-albuterol 3 mg 3 ml inhalation Q6H PRN shortness 11/19/24 02/07/25 Rx (2.5 mg base)/3 mL nebulization of breath or wheezing #90 mL soln alclometasone 0.05 % topical cream 1 applic topical BID PRN itching 11/20/24 02/07/25 Rx #45 grams spironolactone 25 mg tablet 25 mg PO DAILY #30 tabs 12/02/24 02/07/25 Rx metolazone 2.5 mg tablet 2.5 mg PO .q tu/frid #20 tabs 12/08/24 02/07/25 Rx ketoconazole 2 % topical cream 1 applic topical BID PRN facial 12/19/24 02/07/25 Rx rash #60 grams norethindrone acetate 5 mg tablet See Rx Instructions .Route 12/31/24 02/07/25 Rx (Gallifrey) .COMPLEX #180 tabs levothyroxine 200 mcg tablet 200 mcg PO DAILY #90 tabs 01/10/25 02/07/25 Rx empagliflozin 10 mg tablet 10 mg PO QAM #90 tabs 02/02/25 02/07/25 Rx (Jardiance) torsemide 20 mg tablet 40 mg (2 x 20 mg) PO BID #120 tabs 02/06/25 02/07/25 Rx Results Imaging Abdomen CT scan report/results: report reviewed (Concern for gallbladder disease (mild thickening of wall, layering debris. Recommend sonography. Pancreas normal, no ductal dilation) CT scan - chest: report reviewed (1. No evidence for aneurysm or dissection. 2. Nondiagnostic pulmonary artery bolus. If clinical suspicion for pulmonary embolism is high, consider bilateral lower extremity duplex sonography to assess for DVT. 3. Mild bibasilar atelectasis. ) CT scan - pelvis: report reviewed Labs 02/07/25 19:20 02/07/25 19:20 Labs: Laboratory Results - last 24 hr 02/07/25 19:20 WBC 12.77 H RBC 4.39 Hgb 9.5 L Hct 32.1 L MCV 73 L MCH 21.6 L MCHC 29.6 L RDW 21.2 H Plt Count 565 H MPV 9.3 Immature Gran % 1.3 Neutrophils % 80.6 Lymphocytes % 9.6 Monocytes % 5.7 Eosinophils % 2.3 Basophils % 0.5 Nucleated RBC % 0.2 Absolute Neutrophils 10.29 H Absolute Lymphocytes 1.23 Absolute Monocytes 0.73 Absolute Eosinophils 0.29 Absolute Basophils 0.06 RBC Morphology See Below Hypochromasia 2+ Poikilocytosis 2+ Anisocytosis 2+ Microcytosis 2+ Sodium 138 Potassium 4.1 Chloride 100 Carbon Dioxide 31.7 Anion Gap 6.3 BUN 10 Creatinine 0.7 Est GFR (CKD-EPI 2020) 94.15 Glucose 121 H Calcium 8.9 Magnesium 2.3 Total Bilirubin 1.2 H AST 67 H ALT 81 H Alkaline Phosphatase 97 Troponin I 5 Total Protein 8.1 Albumin 2.7 L Lipase 2224 H Last Vital Signs Temp 37.1 C 02/07/25 19:09 Pulse 85 02/07/25 19:09 Resp 28 H 02/07/25 19:09 BP 110/74 02/07/25 19:09 Pulse Ox 92 02/07/25 19:09
--- NOTE | 2025-02-07 22:14 | SCONE_ITS ---
Date of service: 02/08/25 History of Present Illness History of Present Illness Chief Complaint: abdominal pain PFSH All Active Problems (Updated 02/06/25 @ 00:03 by TONY SINGH) Laceration of left forearm (Acute) Anemia (Chronic) COPD exacerbation (Acute) Electrolyte disturbance (Acute) Acute on chronic hypoxic respiratory failure (Acute) Left above-knee amputee (Acute) On deep vein thrombosis (DVT) prophylaxis (Acute) Advanced care planning/counseling discussion (Acute) Elevated liver enzymes (Acute) Exertional shortness of breath (Acute) Heart failure with preserved ejection fraction (Acute) Wound dehiscence (Acute) Thickened endometrium (Acute) Postmenopausal bleeding (Acute) Venous stasis dermatitis (Acute) Chronic headaches (Chronic) Recent Neurology consult for possible papilledema. Urinary incontinence (Chronic) On Detrol Recurrent UTI (Chronic) Right ventricular dysfunction (Chronic) Knee pain, bilateral (Chronic 07/23/14) s/p bilat TKR (left infected with mult surg and decreased mobility) Morbid obesity (Acute 04/05/13) Sensorineural hearing loss, bilateral (Chronic 08/29/13) Advance directive on file (Acute) Low back pain with sciatica (Chronic 05/03/14) CT at [facility] [place] L34 spinal stenosis Varicose veins of lower extremity (Chronic) Depression (Chronic) Grief at loss of child (Acute) Mixed conductive and sensorineural hearing loss of both ears (Acute) Right carpal tunnel syndrome (Acute) Arthritis of right hand (Acute) Impingement of right ulnar nerve (Acute) Dermoid cyst of neck (Acute) Microcalcifications of the breast (Acute) Neuropathy of left hand (Acute) Neuropathy of right hand (Acute) Bilateral carpal tunnel syndrome (Acute) Medical History Palliative care patient CHF (congestive heart failure) Atrial fibrillation COPD (chronic obstructive pulmonary disease) Hx pulmonary embolism (~2015) treated with lovenox x 3 months GERD (gastroesophageal reflux disease) had negative barium esophagram in 11/2022. Anxiety Lymphedema Hypothyroidism DAVID (obstructive sleep apnea) on BiPap Chronic respiratory failure with hypoxia and hypercapnia home BiPap Surgical History S/P AKA (above knee amputation) (~09/2024) Status post thyroidectomy History of fasciotomy Replacement of total knee joint Bilateral; left-became gnkwafrh-slliqkw-bgcmbtac surgeries Fasciotomy, Foot (~1996) LEFT History of Surgical Procedure a. Right and left toal knee replacements. b. Left knee has been repeatedly operated on with slava surgies, three replacements. Family History Mother Diabetes Personal history of malignant neoplasm LUNG Father Personal history of malignant neoplasm BRAIN Grandfather No problems noted. Grandfather No problems noted. Grandmother No problems noted. Grandmother No problems noted. Social History (Updated 11/28/24 @ 21:52 by Brandan Hicks) Smoking/Tobacco Use Status: Former Tobacco Use tobacco type: cigarettes Quit Date: 01/21/21 Second Hand Exposure: Yes Smoking risk assessment performed?: Yes Alcohol Intake: never Drug use: Never Substance use type: does not use Counseling given: No Housing: apartment Communication Needs: Hard of Hearing and Corrective Lenses Pets and animals: Yes Pets and animals: cat(s) Sexually active: Yes Current gender identity: female What is your relationship status?: never How often do you talk on the phone with friends or family?: decline to answer How often do you get together with friends or relatives?: decline to answer How often do you attend denominational or church services?: decline to answer Do you belong to any clubs or organized social groups?: no Panel score (0-1 are the most socially isolated patients): 0 Seatbelt use: never Do you feel safe at home: Yes Do you feel safe in your relationship?: Yes Additional Social history: Lives in her own apartment in [facility], uses electric scooter Results Last Vital Signs Temp 98.8 F 02/07/25 19:09 Pulse 85 02/07/25 19:09 Resp 28 H 02/07/25 19:09 BP 110/74 02/07/25 19:09 Pulse Ox 92 02/07/25 19:09 Labs 02/07/25 19:20 02/07/25 19:20 Labs: Laboratory Results - last 24 hr 02/07/25 19:20 WBC 12.77 H RBC 4.39 Hgb 9.5 L Hct 32.1 L MCV 73 L MCH 21.6 L MCHC 29.6 L RDW 21.2 H Plt Count 565 H MPV 9.3 Immature Gran % 1.3 Neutrophils % 80.6 Lymphocytes % 9.6 Monocytes % 5.7 Eosinophils % 2.3 Basophils % 0.5 Nucleated RBC % 0.2 Absolute Neutrophils 10.29 H Absolute Lymphocytes 1.23 Absolute Monocytes 0.73 Absolute Eosinophils 0.29 Absolute Basophils 0.06 RBC Morphology See Below Hypochromasia 2+ Poikilocytosis 2+ Anisocytosis 2+ Microcytosis 2+ Sodium 138 Potassium 4.1 Chloride 100 Carbon Dioxide 31.7 Anion Gap 6.3 BUN 10 Creatinine 0.7 Est GFR (CKD-EPI 2020) 94.15 Glucose 121 H Calcium 8.9 Magnesium 2.3 Total Bilirubin 1.2 H AST 67 H ALT 81 H Alkaline Phosphatase 97 Troponin I 5 Total Protein 8.1 Albumin 2.7 L Lipase 2224 H
--- NOTE | 2025-02-07 22:22 | W.ED.GENAD ---
Discharge Plan Disposition Patient Disposition: Admit to [facility] Condition: Stable Discharge Details Clinical Impression: Pancreatitis Primary Care Provider: Alphonso Murphy ED Provider: Jackie Scott Home Meds and New Rx's Prescriptions: No Action albuterol sulfate 90 mcg/actuation HFA aerosol inhaler 1 - 2 puff Inhalation Q6H PRN Qty: 1 11RF fluticasone propionate [Flonase Allergy Relief] 50 mcg/actuation spray,suspension 1 spray NS DAILY Qty: 1 8RF potassium chloride [Klor-Con M20] 20 mEq tablet,ER particles/crystals 20 meq PO DAILY Qty: 90 3RF alclometasone 0.05 % cream 1 applic topical BID PRN (Reason: itching) Qty: 45 1RF gabapentin 300 mg capsule 600 mg PO TID PRN levothyroxine 200 mcg tablet 200 mcg PO DAILY Qty: 90 3RF ascorbic acid (vitamin C) 1,000 MG tablet 1,000 mg PO DAILY (DME) Aerochamber Mini 1 EACH spacer 1 ea Inhalation PRN Qty: 1 Rx Instructions: DIRECTED WITH INHALER BiPAP Inhalation Gas 5 l IN DIRECTED Rx Instructions: sleep apnea ([facility] sleep lab 2013) uses with oxygen betamethasone, augmented 0.05 % lotion 1 applic topical BID PRN (Reason: allergic reaction) Qty: 60 2RF oxygen Inhalation 3 l Intranasal DIRECTED Patient Comments: Continuous and uses with bipap Rx Instructions: 3L/NC continuous pantoprazole 20 mg tablet,delayed release (DR/EC) 20 mg PO DAILY Qty: 90 3RF Rx Instructions: 04/13/23 Per GI. -hb sertraline 50 mg tablet 50 mg PO DAILY Qty: 90 3RF metolazone 2.5 mg tablet 2.5 mg PO .q tu/frid Qty: 20 2RF ketoconazole 2 % cream 1 applic topical BID PRN (Reason: facial rash) Qty: 60 1RF norethindrone acetate [Gallifrey] 5 mg tablet See Rx Instructions .ROUTE .COMPLEX Qty: 180 1RF Dose Instruction: TAKE TWO TABLETS BY MOUTH TWICE A DAY Rx Instructions: TAKE TWO TABLETS BY MOUTH TWICE A DAY Jardiance 10 mg tablet 10 mg PO QAM Qty: 90 3RF torsemide 20 mg tablet 40 mg PO BID Qty: 120 1RF nystatin 100,000 unit/gram powder 1 applic TP BID Qty: 30 5RF BiomePRO 50 billion cell capsule,delayed release(DR/EC) 1 cap PO DAILY Qty: 4 0RF Rx Instructions: Take 3 hours apart form any antibiotics ipratropium-albuterol 0.5 mg-3 mg(2.5 mg base)/3 mL solution for nebulization 3 ml inhalation Q6H PRN (Reason: shortness of breath or wheezing) Qty: 90 0RF spironolactone 25 mg Tablet 25 mg PO DAILY Qty: 30 0RF HPI General Date/Time Provider Initiated Documentation: 02/07/25 18:49. HPI Narrative: 69-year-old female with COPD, oxygen dependence secondary to chronic respiratory failure, and recurrent nausea and vomiting with right upper quadrant pain for the past week. Discharged on 02/06/2025 after CHF treatment. Has not taken diuretics for 2 days due to coverage issues. Reports intermittent nausea, vomiting, and right upper quadrant pain for the past week. Pain is tender in the right upper quadrant. No fever, chills, blood in vomitus, or diarrhea. No history of this abdominal pain prior to the past week. Related Data Home Medications ?Medication ?Instructions ?Recorded ?Confirmed ascorbic acid (vitamin C) 1,000 mg 1,000 mg PO DAILY 11/25/12 02/07/25 tablet inhalational spacing device ##1 12/21/13 02/07/25 (Aerochamber Mini) Bipap 5 l IN DIRECTED 07/23/14 02/07/25 betamethasone, augmented 0.05 % 1 applic topical BID PRN allergic 06/20/21 02/07/25 lotion reaction #60 mL oxygen 3 l intranasal DIRECTED 04/02/24 02/07/25 L. acidophilus,casei,rhamnosus 50 1 cap PO DAILY #4 caps 06/04/24 02/07/25 billion cell capsule,delayed release (BiomePRO) nystatin 100,000 unit/gram topical 1 applic topical BID intertrigo 06/04/24 02/07/25 powder #30 grams albuterol sulfate 90 mcg/actuation 1 - 2 puff inhalation Q6H PRN ##1 07/17/24 02/07/25 aerosol inhaler fluticasone propionate 50 1 spray NS DAILY ##1 07/17/24 02/07/25 mcg/actuation nasal spray,suspension (Flonase Allergy Relief) potassium chloride 20 mEq 20 meq PO DAILY #90 tabs 07/17/24 02/07/25 tablet,extended release(part/cryst) (Klor-Con M) pantoprazole 20 mg tablet,delayed 20 mg PO DAILY #90 tabs 07/26/24 02/07/25 release sertraline 50 mg tablet 50 mg PO DAILY #90 tabs 07/26/24 02/07/25 gabapentin 300 mg capsule 600 mg PO TID PRN 10/11/24 02/07/25 ipratropium 0.5 mg-albuterol 3 mg 3 ml inhalation Q6H PRN shortness 11/19/24 02/07/25 (2.5 mg base)/3 mL nebulization of breath or wheezing #90 mL soln alclometasone 0.05 % topical cream 1 applic topical BID PRN itching 11/20/24 02/07/25 #45 grams spironolactone 25 mg tablet 25 mg PO DAILY #30 tabs 12/02/24 02/07/25 metolazone 2.5 mg tablet 2.5 mg PO .q tues/frid #20 tabs 12/08/24 02/07/25 ketoconazole 2 % topical cream 1 applic topical BID PRN facial 12/19/24 02/07/25 rash #60 grams norethindrone acetate 5 mg tablet See Rx Instructions .Route 12/31/24 02/07/25 (Gallifrey) .COMPLEX #180 tabs levothyroxine 200 mcg tablet 200 mcg PO DAILY #90 tabs 01/10/25 02/07/25 empagliflozin 10 mg tablet 10 mg PO QAM #90 tabs 02/02/25 02/07/25 (Jardiance) torsemide 20 mg tablet 40 mg (2 x 20 mg) PO BID #120 tabs 02/06/25 02/07/25 Previous Rx's ?Medication ?Instructions ?Recorded betamethasone, augmented 0.05 % 1 applic topical BID PRN allergic 06/20/21 lotion reaction #60 mL L. acidophilus,casei,rhamnosus 50 1 cap PO DAILY #4 caps 06/04/24 billion cell capsule,delayed release (BiomePRO) nystatin 100,000 unit/gram topical 1 applic topical BID intertrigo 06/04/24 powder #30 grams albuterol sulfate 90 mcg/actuation 1 - 2 puff inhalation Q6H PRN ##1 07/17/24 aerosol inhaler fluticasone propionate 50 1 spray NS DAILY ##1 07/17/24 mcg/actuation nasal spray,suspension (Flonase Allergy Relief) potassium chloride 20 mEq 20 meq PO DAILY #90 tabs 07/17/24 tablet,extended release(part/cryst) (Klor-Con M) pantoprazole 20 mg tablet,delayed 20 mg PO DAILY #90 tabs 07/26/24 release sertraline 50 mg tablet 50 mg PO DAILY #90 tabs 07/26/24 ipratropium 0.5 mg-albuterol 3 mg 3 ml inhalation Q6H PRN shortness 11/19/24 (2.5 mg base)/3 mL nebulization of breath or wheezing #90 mL soln alclometasone 0.05 % topical cream 1 applic topical BID PRN itching 11/20/24 #45 grams spironolactone 25 mg tablet 25 mg PO DAILY #30 tabs 12/02/24 metolazone 2.5 mg tablet 2.5 mg PO .q tues/frid #20 tabs 12/08/24 ketoconazole 2 % topical cream 1 applic topical BID PRN facial 12/19/24 rash #60 grams norethindrone acetate 5 mg tablet See Rx Instructions .Route 12/31/24 (Gallifrey) .COMPLEX #180 tabs levothyroxine 200 mcg tablet 200 mcg PO DAILY #90 tabs 01/10/25 empagliflozin 10 mg tablet 10 mg PO QAM #90 tabs 02/02/25 (Jardiance) torsemide 20 mg tablet 40 mg (2 x 20 mg) PO BID #120 tabs 02/06/25 Allergies Allergy/AdvReac Type Severity Reaction Status Date / Time hydrocodone Allergy Severe ITCHING Verified 01/30/25 12:26 morphine Allergy Mild PRURITIS Verified 01/30/25 12:26 oxycodone Allergy Mild ITCHING Verified 01/30/25 12:26 General Stated Complaint: Abd Prob REUBEN: 3 Exam Narrative Exam Narrative: General Appearance: Alert and oriented. Vital signs: Within normal limits. HEENT: Within normal limits. Respiratory: Crackles at lung bases, no respiratory distress. Cardiovascular: Regular heart rate and rhythm. Gastrointestinal: Tenderness in right upper quadrant without rebound or guarding. Skin: Warm and dry, no rash. Neurological: Normal. Course Vital Signs Vital signs: Vital Signs Temperature 37.1 C 02/07/25 17:30 Pulse 85 02/07/25 17:30 Respiratory Rate 16 02/07/25 17:30 Blood Pressure 110/74 02/07/25 17:30 Pulse Oximetry 92 02/07/25 17:30 Temperature 37.1 C 02/07/25 19:09 Pulse 85 02/07/25 19:09 Respiratory Rate 28 H 02/07/25 19:09 Respiratory Depth Shallow 02/07/25 19:08 Blood Pressure 110/74 02/07/25 19:09 Blood Pressure Mean 82 02/07/25 19:08 Blood Pressure Position Sitting 02/07/25 19:08 Pulse Oximetry 92 02/07/25 19:09 Oxygen Delivery Method Nasal Cannula 02/07/25 19:09 Oxygen Flow Rate 3 02/07/25 19:09 Pain Level 5 02/07/25 19:09 Lab/Test Results Lab/Test Results: Laboratory Tests Range/Units 02/07/25 19:20 WBC (4.4-10.8) 10^3/uL 12.77 H RBC (3.93-5.22) 10^6/uL 4.39 Hgb (11.2-15.7) g/dL 9.5 L Hct (36.0-46.0) % 32.1 L MCV (80-95) fL 73 L MCH (27.0-33.0) pg 21.6 L MCHC (32.0-36.0) % 29.6 L RDW (11.7-14.6) % 21.2 H Plt Count (130-400) 10^3/uL 565 H MPV (8.0-11.0) fL 9.3 Immature Gran % % 1.3 Neutrophils % % 80.6 Lymphocytes % % 9.6 Monocytes % % 5.7 Eosinophils % % 2.3 Basophils % % 0.5 Nucleated RBC % (0.0-0.3) % 0.2 Absolute Neutrophils (1.2-6.7) 10^3/uL 10.29 H Absolute Lymphocytes (1.2-3.4) 10^3/uL 1.23 Absolute Monocytes (0.1-0.8) 10^3/uL 0.73 Absolute Eosinophils (0.0-0.7) 10^3/uL 0.29 Absolute Basophils (0.0-0.2) 10^3/uL 0.06 RBC Morphology See Below Hypochromasia 2+ Poikilocytosis 2+ Anisocytosis 2+ Microcytosis 2+ Sodium (136-145) mmol/L 138 Potassium (3.5-5.1) mmol/L 4.1 Chloride (98-107) mmol/L 100 Carbon Dioxide (21.0-32.0) mmol/L 31.7 Anion Gap (3-11) mmol/L 6.3 BUN (7-18) mg/dL 10 Creatinine (0.55-1.02) mg/dL 0.7 Est GFR (CKD-EPI 2020) (mL/min/1.73m2) 94.15 Glucose (74-106) mg/dL 121 H Calcium (8.5-10.1) mg/dL 8.9 Magnesium (1.8-2.4) mg/dL 2.3 Total Bilirubin (0.2-1.0) mg/dL 1.2 H AST (15-37) U/L 67 H ALT (14-59) U/L 81 H Alkaline Phosphatase (46-116) U/L 97 Troponin I (<or=51) ng/L 5 Total Protein (6.4-8.2) g/dL 8.1 Albumin (3.4-5.0) g/dL 2.7 L Lipase (<78) U/L 2224 H Medical Decision Making Leukocytosis of 12,000. Hemoglobin increased from 8.5 to 9.5. Hematocrit of 32. AST and ALT baseline at 67 and 81. Bilirubin of 1.2. Lipase decreased from [address] abdomen and pelvis shows possible gallbladder wall dilation, biliary sludge without acute findings. CT chest shows no evidence of acute PE. Initial Assessment: 69-year-old female with COPD, oxygen dependence secondary to chronic respiratory failure, recurrent nausea and vomiting with right upper quadrant pain for the past week. Discharged after CHF treatment. Tender in right upper quadrant, alert and oriented, no rebound or guarding. Crackles at lung bases, no respiratory distress, regular cardiac rate and rhythm. Leukocytosis of 12,000, anemia improved, hemoglobin increased from 8.5 to 9.5, hematocrit of 32. AST and ALT baseline at 67 and 81, bilirubin of 1.2, lipase decreased from [address] abdomen and pelvis shows possible biliary wall dilation, gallbladder wall dilation, biliary sludge without acute findings. CT chest shows no evidence of acute PE. Differential Diagnosis: - Pancreatitis: Admit for pancreatitis and continued observation. - Biliary pathology: Possible biliary wall dilation, gallbladder wall dilation, biliary sludge. No emergent ERCP needed. Light hydration recommended due to CHF. Hydrate at 0.75 mL/kg/h. Clear liquid diet. Observe for rising LFTs and lipase levels. - Congestive heart failure (CHF): Recently treated for CHF. Not taken diuretics for past 2 days due to coverage issues. ED Course: - Case discussed with Dr. Murdock and Dr. Bello - GI consult at [facility], recommends light hydration and continued monitoring of LFTs and lipase does not recommend ERCP at this time secondary to lack of dilated bile duct and stable bilirubin - 125 cm? of LR per hour ordered. - Compazine 5 mg administered, tolerated well. - Schmitt catheter placed. Final Assessment: Admitted for pancreatitis and continued observation. Discussed case with GI for possible ERCP, hydration recommended due to CHF. No emergent ERCP needed. Clear liquid diet advised. Compazine administered and tolerated well. Clinical Impression: - Pancreatitis - Chronic respiratory failure - Congestive heart failure (CHF) Disposition: - Admission to hospital for pancreatitis and continued observation. Quality:SDOH Health Related Social Needs: Health related social needs material hardship Health related social needs details Pt refuses to answer questions PFSH All Active Problems (Updated 02/07/25 @ 22:27 by INESSA Galicia) Pancreatitis (Chronic) Acute biliary pancreatitis (Acute) Laceration of left forearm (Acute) Anemia (Chronic) COPD exacerbation (Acute) Electrolyte disturbance (Acute) Acute on chronic hypoxic respiratory failure (Acute) Left above-knee amputee (Acute) On deep vein thrombosis (DVT) prophylaxis (Acute) Advanced care planning/counseling discussion (Acute) Elevated liver enzymes (Acute) Exertional shortness of breath (Acute) Heart failure with preserved ejection fraction (Acute) Wound dehiscence (Acute) Thickened endometrium (Acute) Postmenopausal bleeding (Acute) Venous stasis dermatitis (Acute) Chronic headaches (Chronic) Recent Neurology consult for possible papilledema. Urinary incontinence (Chronic) On Detrol Recurrent UTI (Chronic) Right ventricular dysfunction (Chronic) Knee pain, bilateral (Chronic 07/23/14) s/p bilat TKR (left infected with mult surg and decreased mobility) Morbid obesity (Acute 04/05/13) Sensorineural hearing loss, bilateral (Chronic 08/29/13) Advance directive on file (Acute) Low back pain with sciatica (Chronic 05/03/14) CT at [facility] L34 spinal stenosis Varicose veins of lower extremity (Chronic) Depression (Chronic) Grief at loss of child (Acute) Mixed conductive and sensorineural hearing loss of both ears (Acute) Right carpal tunnel syndrome (Acute) Arthritis of right hand (Acute) Impingement of right ulnar nerve (Acute) Dermoid cyst of neck (Acute) Microcalcifications of the breast (Acute) Neuropathy of left hand (Acute) Neuropathy of right hand (Acute) Bilateral carpal tunnel syndrome (Acute) Medical History Palliative care patient CHF (congestive heart failure) Atrial fibrillation COPD (chronic obstructive pulmonary disease) Hx pulmonary embolism (~2015) treated with lovenox x 3 months GERD (gastroesophageal reflux disease) had negative barium esophagram in 11/2022. Anxiety Lymphedema Hypothyroidism DAVID (obstructive sleep apnea) on BiPap Chronic respiratory failure with hypoxia and hypercapnia home BiPap Surgical History S/P AKA (above knee amputation) (~09/2024) Status post thyroidectomy History of fasciotomy Replacement of total knee joint Bilateral; left-became [id number] surgeries Fasciotomy, Foot (~1996) LEFT History of Surgical Procedure a. Right and left toal knee replacements. b. Left knee has been repeatedly operated on with slava surgies, three replacements. Family History Mother Diabetes Personal history of malignant neoplasm LUNG Father Personal history of malignant neoplasm BRAIN Grandfather No problems noted. Grandfather No problems noted. Grandmother No problems noted. Grandmother No problems noted. Social History (Updated 11/28/24 @ 21:52 by Brandan Hicks) Smoking/Tobacco Use Status: Former Tobacco Use tobacco type: cigarettes Quit Date: 01/21/21 Second Hand Exposure: Yes Smoking risk assessment performed?: Yes Alcohol Intake: never Drug use: Never Substance use type: does not use Counseling given: No Housing: apartment Communication Needs: Hard of Hearing and Corrective Lenses Pets and animals: Yes Pets and animals: cat(s) Sexually active: Yes Current gender identity: female What is your relationship status?: never How often do you talk on the phone with friends or family?: decline to answer How often do you get together with friends or relatives?: decline to answer How often do you attend yazidism or zoroastrian services?: decline to answer Do you belong to any clubs or organized social groups?: no Panel score (0-1 are the most socially isolated patients): 0 Seatbelt use: never Do you feel safe at home: Yes Do you feel safe in your relationship?: Yes Additional Social history: Lives in her own apartment in [facility], uses electric scooter
[2025-02-07 22:24] LABS: Bacteria Few HPF (Negative); C & S Indicated? No; Casts Negative LPF (Negative); Crystals Negative HPF (Negative); Epithelial Cells Few HPF (Negative); Mucus Negative (Negative); RBC >50 HPF (0-2)
[2025-02-07 22:41] VITALS: PULSE 86; RESP 18; O2SAT 89
== END 2025-02-07 22:41 | disposition left against medical advice (07) ==
PROVIDERS: Emergency Provider Physician Assistant; PCP Family Medicine
DX: K85.10 Biliary acute pancreatitis without necrosis or infection (principal); R10.11 Right upper quadrant pain; R11.2 Nausea with vomiting, unspecified; Z53.29 Procedure and treatment not carried out because of patient's decision for other reasons; Z87.09 Personal history of other diseases of the respiratory system; Z86.79 Personal history of other diseases of the circulatory system; Z99.81 Dependence on supplemental oxygen; Z91.148 Patient's other noncompliance with medication regimen for other reason
CPT/HCPCS: 99284; 99285; 96375; 71275; 80053; 83690; 93005; 96365; 96367; 74177; 81003; 81015; 83735; 84484; 85025; 93010; J0131; J0780; J2543; J3490

== ENCOUNTER 2025-02-08 13:24 | Observation (INO) | payer MEDICARE, MEDICAID, SELFPAY ==
[2025-02-08] VITALS (7 sets, daily range): BP systolic 97–137; BP diastolic 53–73; PULSE 78–85; RESP 18–20; TEMP 36.4–37.3; O2SAT 90–98
--- NOTE | 2025-02-08 14:12 | W.ED.GENAD ---
Discharge Plan Disposition Patient Disposition: Admit to [facility] Condition: Good Discharge Details Clinical Impression: Pancreatitis, Abnormal transaminases Primary Care Provider: Alphonso Murphy ED Provider: Rosa Arellano Home Meds and New Rx's Prescriptions: No Action albuterol sulfate 90 mcg/actuation HFA aerosol inhaler 1 - 2 puff Inhalation Q6H PRN Qty: 1 11RF fluticasone propionate [Flonase Allergy Relief] 50 mcg/actuation spray,suspension 1 spray NS DAILY Qty: 1 8RF potassium chloride [Klor-Con M20] 20 mEq tablet,ER particles/crystals 20 meq PO DAILY Qty: 90 3RF alclometasone 0.05 % cream 1 applic topical BID PRN (Reason: itching) Qty: 45 1RF gabapentin 300 mg capsule 600 mg PO TID PRN levothyroxine 200 mcg tablet 200 mcg PO DAILY Qty: 90 3RF ascorbic acid (vitamin C) 1,000 MG tablet 1,000 mg PO DAILY (DME) Aerochamber Mini 1 EACH spacer 1 ea Inhalation PRN Qty: 1 Rx Instructions: DIRECTED WITH INHALER BiPAP Inhalation Gas 5 l IN DIRECTED Rx Instructions: sleep apnea ([facility] sleep lab 2013) uses with oxygen betamethasone, augmented 0.05 % lotion 1 applic topical BID PRN (Reason: allergic reaction) Qty: 60 2RF oxygen Inhalation 3 l Intranasal DIRECTED Patient Comments: Continuous and uses with bipap Rx Instructions: 3L/NC continuous pantoprazole 20 mg tablet,delayed release (DR/EC) 20 mg PO DAILY Qty: 90 3RF Rx Instructions: 04/13/23 Per GI. -hb sertraline 50 mg tablet 50 mg PO DAILY Qty: 90 3RF metolazone 2.5 mg tablet 2.5 mg PO .q tu/frid Qty: 20 2RF ketoconazole 2 % cream 1 applic topical BID PRN (Reason: facial rash) Qty: 60 1RF norethindrone acetate [Gallifrey] 5 mg tablet See Rx Instructions .ROUTE .COMPLEX Qty: 180 1RF Dose Instruction: TAKE TWO TABLETS BY MOUTH TWICE A DAY Rx Instructions: TAKE TWO TABLETS BY MOUTH TWICE A DAY Jardiance 10 mg tablet 10 mg PO QAM Qty: 90 3RF torsemide 20 mg tablet 40 mg PO BID Qty: 120 1RF prochlorperazine maleate [Compazine] 5 mg tablet 5 mg PO QID PRNQty: 10 0RF nystatin 100,000 unit/gram powder 1 applic TP BID Qty: 30 5RF BiomePRO 50 billion cell capsule,delayed release(DR/EC) 1 cap PO DAILY Qty: 4 0RF Rx Instructions: Take 3 hours apart form any antibiotics ipratropium-albuterol 0.5 mg-3 mg(2.5 mg base)/3 mL solution for nebulization 3 ml inhalation Q6H PRN (Reason: shortness of breath or wheezing) Qty: 90 0RF spironolactone 25 mg Tablet 25 mg PO DAILY Qty: 30 0RF HPI General Date/Time Provider Initiated Documentation: 02/08/25 13:25. Limitations to Documentation: no limitations. Information obtained by: patient, RN notes reviewed and old records reviewed. History of Present Illness 69 year old F presents to the emergency department with the chief complaint of abdominal pain, nausea/vomiting, known dx of pancreatitis, described as moderate, Quality is described as aching, and is localized to the abdomen. Patient reports no radiation. Patient started experiencing this week(s) and it has been constant. No relieving factors improve symptom(s), Eating worsens symptoms . Patient notes no other symptoms.. Patient did receive the following treatments prior to arrival, none Related Data Home Medications ?Medication ?Instructions ?Recorded ?Confirmed ascorbic acid (vitamin C) 1,000 mg 1,000 mg PO DAILY 11/25/12 02/08/25 tablet inhalational spacing device ##1 12/21/13 02/08/25 (Aerochamber Mini) Bipap 5 l IN DIRECTED 07/23/14 02/08/25 betamethasone, augmented 0.05 % 1 applic topical BID PRN allergic 06/20/21 02/08/25 lotion reaction #60 mL oxygen 3 l intranasal DIRECTED 04/02/24 02/08/25 L. acidophilus,casei,rhamnosus 50 1 cap PO DAILY #4 caps 06/04/24 02/08/25 billion cell capsule,delayed release (BiomePRO) nystatin 100,000 unit/gram topical 1 applic topical BID intertrigo 06/04/24 02/08/25 powder #30 grams albuterol sulfate 90 mcg/actuation 1 - 2 puff inhalation Q6H PRN ##1 07/17/24 02/08/25 aerosol inhaler fluticasone propionate 50 1 spray NS DAILY ##1 07/17/24 02/08/25 mcg/actuation nasal spray,suspension (Flonase Allergy Relief) potassium chloride 20 mEq 20 meq PO DAILY #90 tabs 07/17/24 02/08/25 tablet,extended release(part/cryst) (Klor-Con M) pantoprazole 20 mg tablet,delayed 20 mg PO DAILY #90 tabs 07/26/24 02/08/25 release sertraline 50 mg tablet 50 mg PO DAILY #90 tabs 07/26/24 02/08/25 gabapentin 300 mg capsule 600 mg PO TID PRN 10/11/24 02/08/25 ipratropium 0.5 mg-albuterol 3 mg 3 ml inhalation Q6H PRN shortness 11/19/24 02/08/25 (2.5 mg base)/3 mL nebulization of breath or wheezing #90 mL soln alclometasone 0.05 % topical cream 1 applic topical BID PRN itching 11/20/24 02/08/25 #45 grams spironolactone 25 mg tablet 25 mg PO DAILY #30 tabs 12/02/24 02/08/25 metolazone 2.5 mg tablet 2.5 mg PO .q tues/frid #20 tabs 12/08/24 02/08/25 ketoconazole 2 % topical cream 1 applic topical BID PRN facial 12/19/24 02/08/25 rash #60 grams norethindrone acetate 5 mg tablet See Rx Instructions .Route 12/31/24 02/08/25 (Gallifrey) .COMPLEX #180 tabs levothyroxine 200 mcg tablet 200 mcg PO DAILY #90 tabs 01/10/25 02/08/25 empagliflozin 10 mg tablet 10 mg PO QAM #90 tabs 02/02/25 02/08/25 (Jardiance) torsemide 20 mg tablet 40 mg (2 x 20 mg) PO BID #120 tabs 02/06/25 02/08/25 prochlorperazine maleate 5 mg 5 mg PO QID PRN #10 tabs 02/07/25 02/08/25 tablet (Compazine) Previous Rx's ?Medication ?Instructions ?Recorded betamethasone, augmented 0.05 % 1 applic topical BID PRN allergic 06/20/21 lotion reaction #60 mL L. acidophilus,casei,rhamnosus 50 1 cap PO DAILY #4 caps 06/04/24 billion cell capsule,delayed release (BiomePRO) nystatin 100,000 unit/gram topical 1 applic topical BID intertrigo 06/04/24 powder #30 grams albuterol sulfate 90 mcg/actuation 1 - 2 puff inhalation Q6H PRN ##1 07/17/24 aerosol inhaler fluticasone propionate 50 1 spray NS DAILY ##1 07/17/24 mcg/actuation nasal spray,suspension (Flonase Allergy Relief) potassium chloride 20 mEq 20 meq PO DAILY #90 tabs 07/17/24 tablet,extended release(part/cryst) (Klor-Con M) pantoprazole 20 mg tablet,delayed 20 mg PO DAILY #90 tabs 07/26/24 release sertraline 50 mg tablet 50 mg PO DAILY #90 tabs 07/26/24 ipratropium 0.5 mg-albuterol 3 mg 3 ml inhalation Q6H PRN shortness 11/19/24 (2.5 mg base)/3 mL nebulization of breath or wheezing #90 mL soln alclometasone 0.05 % topical cream 1 applic topical BID PRN itching 11/20/24 #45 grams spironolactone 25 mg tablet 25 mg PO DAILY #30 tabs 12/02/24 metolazone 2.5 mg tablet 2.5 mg PO .q tues/frid #20 tabs 12/08/24 ketoconazole 2 % topical cream 1 applic topical BID PRN facial 12/19/24 rash #60 grams norethindrone acetate 5 mg tablet See Rx Instructions .Route 12/31/24 (Gallifrey) .COMPLEX #180 tabs levothyroxine 200 mcg tablet 200 mcg PO DAILY #90 tabs 01/10/25 empagliflozin 10 mg tablet 10 mg PO QAM #90 tabs 02/02/25 (Jardiance) torsemide 20 mg tablet 40 mg (2 x 20 mg) PO BID #120 tabs 02/06/25 prochlorperazine maleate 5 mg 5 mg PO QID PRN #10 tabs 02/07/25 tablet (Compazine) Allergies Allergy/AdvReac Type Severity Reaction Status Date / Time hydrocodone Allergy Severe ITCHING Verified 01/30/25 12:26 morphine Allergy Mild PRURITIS Verified 01/30/25 12:26 oxycodone Allergy Mild ITCHING Verified 01/30/25 12:26 General Stated Complaint: Abd Prob REUBEN: 3 Review of Systems Constitutional Constitutional: Reports as per HPI, Denies chills, Denies fever(s) and Denies headache(s) ENT Ears, Nose, Mouth, and Throat: Denies headache(s) Cardiovascular Cardiovascular: Reports as per HPI, Denies chest pain and Denies dyspnea Respiratory Respiratory: Reports as per HPI, Denies cough and Denies dyspnea Gastrointestinal Gastrointestinal: Reports as per HPI Musculoskeletal Musculoskeletal: Reports as per HPI and Denies back pain Integumentary/Breasts Skin/Breast: Reports as per HPI and Denies rash Neurologic Neurologic: Reports as per HPI and Denies headache(s) Exam Const General: cooperative, comfortable, no acute distress and well developed Nutritional Appearance: average body habitus and well nourished Orientation: alert and awake [facility] Head: normal to inspection Mouth: moist mucous membranes Resp Effort & Inspection: normal respiratory effort, able to speak in complete sentences and no respiratory distress Auscultation: clear to auscultation bilaterally, no rales, no rhonchi and no wheezes Cardio Rate: regular rate Rhythm: regular rhythm Heart Sounds: S1 normal and S2 normal Back/Spine/Pelvis Back: no CVA tenderness Skin General skin exam: no rashes or lesions noted Trauma: no lacerations or abrasions Neuro General: patient alert and patient awake Cognition: normal cognition Speech: speech normal Course Vital Signs Vital signs: Vital Signs Temperature 36.9 C 02/08/25 13:39 Pulse 85 02/08/25 13:39 Respiratory Rate 20 02/08/25 13:39 Blood Pressure 127/73 02/08/25 13:39 Pulse Oximetry 90 L 02/08/25 13:39 Temperature 36.9 C 02/08/25 14:06 Temperature Source Temporal Artery Scan 02/08/25 14:06 Pulse 85 02/08/25 14:06 Respiratory Rate 20 02/08/25 14:06 Blood Pressure 127/73 02/08/25 14:06 Blood Pressure Position Sitting 02/08/25 14:06 Pulse Oximetry 90 L 02/08/25 14:06 Oxygen Delivery Method Room Air 02/08/25 14:06 Oxygen Flow Rate 0 02/08/25 14:06 Pain Level 7 02/08/25 14:06 Medical Decision Making Patient is a pleasant 69 year old female, well known to myself and the department, presenting today for reevaluation of known pancreatitis. Was diagnosed yesterday, left AMA as her electric wheelchair was scheduled for needed maintenance today. Now that that is completed, she is back for reevaluation and likely admission. No change in pain. contniues to have vomiting, denies nausea now. She reports that if anything, pain is slightly improved. she has stuck with the recommended clear liquid diet. She has any change in bowel or bladder habits. Pain continues to be on the far right aspect of her abdomen. PMH signficant for hypothyroid, DAVID, chronic respiratory failure, anxiety, GERD, COPD, atrial fibrillation, CHF, lymphedema, PE. S/p left BKA, chornic wound on this leg. On exam, patient appears to be at her baseline. Lungs are clear. Normal cardiac exam. Seh contineus to appear chronically unwell. Abdominal exam is not what is expected for pancreatitis, more to the far right for pain. No midline or LUQ pain. However, this is the area has pain has remained in. No peritoneal findings. No CVA tenderness. Reviewed the notes from her evaluation yesterday at which time plan was for patient to be admitted for pancreatitis. While inpatient, emergency provider had consulted with [facility] gastroenterology who recommended light hydration and continue to monitor LFTs and lipase. They did not recommend an ERCP at that point. Will obtain repeat labs. As there has been not real change in her symptoms, do not feel that repeat imaging is warranted at this time. Plan for admission as previously advised. Will begin IV hydration. Given her history of fairly fragile CHF, will go slow with hydration at a rate of 150/h. . CMP shows elevation of AST at 98, ALT 115, alk phos 120. this is all slightly [id number] from yesterday. T.bili down from yesterday, now normal. The lipase is signficantly lower, it had been 2224 yesterday, down to [address] Murdock regarding the patient's return as well as the lab changes. He is questioning if she may have potentially passed a stone and then now is improved. However, as the patient continues to have nausea and vomiting, particular when she tries to drink even water, feels that admission for slow rehydration observation is appropriate at this point Consulted with Zoila De La Garza NP who agrees to admission for the patient. . Quality:SDOH Health Related Social Needs: Health related social needs material hardship Health related social needs details Pt refuses to answer questions PFSH All Active Problems (Updated 02/08/25 @ 15:24 by INESSA Ngo) Abnormal transaminases (Acute) Pancreatitis (Chronic) Acute biliary pancreatitis (Acute) Laceration of left forearm (Acute) Anemia (Chronic) COPD exacerbation (Acute) Electrolyte disturbance (Acute) Acute on chronic hypoxic respiratory failure (Acute) Left above-knee amputee (Acute) On deep vein thrombosis (DVT) prophylaxis (Acute) Advanced care planning/counseling discussion (Acute) Elevated liver enzymes (Acute) Exertional shortness of breath (Acute) Heart failure with preserved ejection fraction (Acute) Wound dehiscence (Acute) Thickened endometrium (Acute) Postmenopausal bleeding (Acute) Venous stasis dermatitis (Acute) Chronic headaches (Chronic) Recent Neurology consult for possible papilledema. Urinary incontinence (Chronic) On Detrol Recurrent UTI (Chronic) Right ventricular dysfunction (Chronic) Knee pain, bilateral (Chronic 07/23/14) s/p bilat TKR (left infected with mult surg and decreased mobility) Morbid obesity (Acute 04/05/13) Sensorineural hearing loss, bilateral (Chronic 08/29/13) Advance directive on file (Acute) Low back pain with sciatica (Chronic 05/03/14) [place] [facility] [place] Varicose veins of lower extremity (Chronic) Depression (Chronic) Grief at loss of child (Acute) Mixed conductive and sensorineural hearing loss of both ears (Acute) Right carpal tunnel syndrome (Acute) Arthritis of right hand (Acute) Impingement of right ulnar nerve (Acute) Dermoid cyst of neck (Acute) Microcalcifications of the breast (Acute) Neuropathy of left hand (Acute) Neuropathy of right hand (Acute) Bilateral carpal tunnel syndrome (Acute) Medical History Palliative care patient CHF (congestive heart failure) Atrial fibrillation COPD (chronic obstructive pulmonary disease) Hx pulmonary embolism (~2015) treated with lovenox x 3 months GERD (gastroesophageal reflux disease) had negative barium esophagram in 11/2022. Anxiety Lymphedema Hypothyroidism DAVID (obstructive sleep apnea) on BiPap Chronic respiratory failure with hypoxia and hypercapnia home BiPap Surgical History S/P AKA (above knee amputation) (~09/2024) Status post thyroidectomy History of fasciotomy Replacement of total knee joint Bilateral; left-became gldihyce-jyrxjvx-plauoula surgeries Fasciotomy, Foot (~1996) LEFT History of Surgical Procedure a. Right and left toal knee replacements. b. Left knee has been repeatedly operated on with slava surgies, three replacements. Family History Mother Diabetes Personal history of malignant neoplasm LUNG Father Personal history of malignant neoplasm BRAIN Grandfather No problems noted. Grandfather No problems noted. Grandmother No problems noted. Grandmother No problems noted. Social History (Updated 11/28/24 @ 21:52 by Brandan Hicks) Smoking/Tobacco Use Status: Former Tobacco Use tobacco type: cigarettes Quit Date: 01/21/21 Second Hand Exposure: Yes Smoking risk assessment performed?: Yes Alcohol Intake: never Drug use: Never Substance use type: does not use Counseling given: No Housing: apartment Communication Needs: Hard of Hearing and Corrective Lenses Pets and animals: Yes Pets and animals: cat(s) Sexually active: Yes Current gender identity: female What is your relationship status?: never How often do you talk on the phone with friends or family?: decline to answer How often do you get together with friends or relatives?: decline to answer How often do you attend buddhism or church services?: decline to answer Do you belong to any clubs or organized social groups?: no Panel score (0-1 are the most socially isolated patients): 0 Seatbelt use: never Do you feel safe at home: Yes Do you feel safe in your relationship?: Yes Additional Social history: Lives in her own apartment in [place], uses electric scooter
--- NOTE | 2025-02-08 14:15 | RT.EKG_ITS ---
APPROVED REPORT Exam: Resting ECG Reason for Exam: upper abdominal pain, nausea Patient Location: E HR:78 bpm ECG Measurements Heart Rate 78 AXIS IA 189 P 63 QRSd 101 QRS 48 QT 397 T 9 QTc 453 Conclusion sinus 78 no stmei
[2025-02-08 14:45] LABS: Abs Immature Grans 0.11 10^3/uL (0.0-0.06); Absolute Basophil Count 0.05 10^3/uL (0.0-0.2); Absolute Eosinophil Count 0.34 10^3/uL (0.0-0.7); Absolute Monocyte Count 0.67 10^3/uL (0.1-0.8); Absolute Neutrophil Count 8.09 10^3/uL (1.2-6.7); Basophils % 0.5 %; Eosinophils % 3.2 %; HCT 32.1 % (36.0-46.0); HGB 9.6 g/dL (11.2-15.7); Lymphocytes % 13.1 %; MCHC 29.9 % (32.0-36.0); MCV 74 fL (80-95); MPV 9.2 fL (8.0-11.0); Monocytes % 6.3 %; Neutrophils % 75.9 %; Platelet Count 530 10^3/uL (130-400); RBC 4.37 10^6/uL (3.93-5.22); WBC 10.66 10^3/uL (4.4-10.8)
[2025-02-08 15:02] LABS: Triglyceride 143 mg/dL (<150)
[2025-02-08 15:03] LABS: ALT 115 U/L (14-59); AST 98 U/L (15-37); Albumin 2.7 g/dL (3.4-5.0); Alkaline Phosphatase 120 U/L (46-116); Anion Gap 9.2 mmol/L (3-11); BUN 9 mg/dL (7-18); Bilirubin, Total 0.8 mg/dL (0.2-1.0); CO2 32.8 mmol/L (21.0-32.0); CREATININE 0.7 mg/dL (0.55-1.02); Calcium 8.5 mg/dL (8.5-10.1); Chloride 99 mmol/L (98-107); Estimated GFR 94.15 (mL/min/1.73m2); Glucose 91 mg/dL (74-106); Lipase 108 U/L (<78); Potassium 3.5 mmol/L (3.5-5.1); Sodium 141 mmol/L (136-145); Total Protein 7.7 g/dL (6.4-8.2)
[2025-02-08 15:08] LABS: Microcytosis 2+
--- NOTE | 2025-02-08 15:17 | W.PM.HP.N ---
Date of service: 02/08/25 Time of Service: 15:32 Assessment and Plan Assessment and plan (1) Acute biliary pancreatitis: Status: Acute Assessment and plan: As per imaging, lipase intially > 2000 now 108, and symptomatology No further trending of lipase needed mild transiminitis0- will continue to monitor, improving total bilirubin was 1.2 now 0.8 Triglycerides 143 Abdominal US Nausea- vomiting- scheduled antiemetic and PRN Clear liquid and advance as tolerated in AM CMP in AM Ketorolac IVP PRN (2) Abnormal transaminases: Status: Acute Assessment and plan: as above (3) Anemia: Status: Chronic Assessment and plan: Microcytic and stable on 02/03-Transferrin sat 6 and iron 19- consider IV ferrous carboxymaltose in the setting of HFpEF and anemia Recommends opt f/u for anemia work-up and oral iron as per PCP (4) COPD exacerbation: Status: Acute Assessment and plan: continue home meds regimen IS d/t suspected bibasilar atelectasis (5) Laceration of left upper extremity: Status: Acute Assessment and plan: Wash with sterile saline - dry and apply mepilex q 3 days - changed today (6) Left above-knee amputee: Status: Acute Assessment and plan: Dressing change as ordered outpatient to stump (7) On deep vein thrombosis (DVT) prophylaxis: Status: Acute Assessment and plan: On LMWH (8) Heart failure with preserved ejection fraction: Status: Acute Assessment and plan: continue home med regimen last echo on 02/01 (9) Morbid obesity: Status: Acute Assessment and plan: on going weight loss ongoing heart healthy diet d/t pancreatitis - GLP-1 inhibitors might be questionable (10) Depression: Status: Chronic Assessment and plan: outpatient med regimen (11) Discharge planning issues: Status: Acute Assessment and plan: Discharge home when can tolerate po and pain i well manage Discussed with Dr. Reyes History of Present Illness History of Present Illness Chief Complaint: nausea, vomtiing , abdominal pain Narrative: 69-year-old female with COPD, oxygen dependence secondary to chronic respiratory failure, microcytic anemia presented to the ED on 02/07/25 for recurrent nausea and vomiting with right upper quadrant pain for the past week. CT of the abdomen and pelvis completed in the ED on 01/30 for similar complaint was negative for acute findings and abdominal US was non-conclusive d/t body habitus. Recently discharged on 02/06/2025 after CHF exacerbation treatment and reporting not taking ordered diuretics for 2 days due to coverage issues. The patient reported intermittent nausea, vomiting, and right upper quadrant pain for the past week. Abdomen was tender in the right upper quadrant as per ED provider notes; denied fever, chills, hematemesis vomitus, or diarrhea. Work-up showed leukocytosis at 12.77,stable microcytic anemia, mild transminitis with total bili at 1.2, lipase 2224. CT imagine showed no radiodense calculus or dilation. The gallbladder is distended measuring 5 cm in diameter,pancreas with normal density, no abnormal calcifications or inflammatory process; also seen bilateral basilar infiltrates with concerns for atelectasis VS possible pneumonia.The ED provider sought admission and the patient was accepted by the hospitalist but decided to leave A for wheelchair fitting appointment on 02/08 but returned to the ED today with ongoing nausea, vomitng. Lipase is now 108, WBC 10.66. The patient will be admitted for observation and IV hydration, antiemetic as she is still unable to tolerate enteral intake. Review of Systems All systems reviewed & are unremarkable except as noted in HPI and below PFSH All Active Problems (Updated 02/08/25 @ 17:41 by Zoila De La Garza APRN) Laceration of left upper extremity (Acute) Discharge planning issues (Acute) Abnormal transaminases (Acute) Pancreatitis (Chronic) Acute biliary pancreatitis (Acute) Laceration of left forearm (Acute) Anemia (Chronic) COPD exacerbation (Acute) Electrolyte disturbance (Acute) Acute on chronic hypoxic respiratory failure (Acute) Left above-knee amputee (Acute) On deep vein thrombosis (DVT) prophylaxis (Acute) Advanced care planning/counseling discussion (Acute) Elevated liver enzymes (Acute) Exertional shortness of breath (Acute) Heart failure with preserved ejection fraction (Acute) Wound dehiscence (Acute) Thickened endometrium (Acute) Postmenopausal bleeding (Acute) Venous stasis dermatitis (Acute) Chronic headaches (Chronic) Recent Neurology consult for possible papilledema. Urinary incontinence (Chronic) On Detrol Recurrent UTI (Chronic) Right ventricular dysfunction (Chronic) Knee pain, bilateral (Chronic 07/23/14) s/p bilat TKR (left infected with mult surg and decreased mobility) Morbid obesity (Acute 04/05/13) Sensorineural hearing loss, bilateral (Chronic 08/29/13) Advance directive on file (Acute) Low back pain with sciatica (Chronic 05/03/14) [place] [facility] [place] Varicose veins of lower extremity (Chronic) Depression (Chronic) Grief at loss of child (Acute) Mixed conductive and sensorineural hearing loss of both ears (Acute) Right carpal tunnel syndrome (Acute) Arthritis of right hand (Acute) Impingement of right ulnar nerve (Acute) Dermoid cyst of neck (Acute) Microcalcifications of the breast (Acute) Neuropathy of left hand (Acute) Neuropathy of right hand (Acute) Bilateral carpal tunnel syndrome (Acute) Medical History Palliative care patient CHF (congestive heart failure) Atrial fibrillation COPD (chronic obstructive pulmonary disease) Hx pulmonary embolism (~2015) treated with lovenox x 3 months GERD (gastroesophageal reflux disease) had negative barium esophagram in 11/2022. Anxiety Lymphedema Hypothyroidism DAVID (obstructive sleep apnea) on BiPap Chronic respiratory failure with hypoxia and hypercapnia home BiPap Surgical History S/P AKA (above knee amputation) (~09/2024) Status post thyroidectomy History of fasciotomy Replacement of total knee joint Bilateral; left-became lrcjqgui-scvrejv-nywujprz surgeries Fasciotomy, Foot (~1996) LEFT History of Surgical Procedure a. Right and left toal knee replacements. b. Left knee has been repeatedly operated on with slava surgies, three replacements. Family History Mother Diabetes Personal history of malignant neoplasm LUNG Father Personal history of malignant neoplasm BRAIN Grandfather No problems noted. Grandfather No problems noted. Grandmother No problems noted. Grandmother No problems noted. Social History (Updated 11/28/24 @ 21:52 by Brandan Hicks) Smoking/Tobacco Use Status: Former Tobacco Use tobacco type: cigarettes Quit Date: 01/21/21 Second Hand Exposure: Yes Smoking risk assessment performed?: Yes Alcohol Intake: never Drug use: Never Substance use type: does not use Counseling given: No Housing: apartment Communication Needs: Hard of Hearing and Corrective Lenses Pets and animals: Yes Pets and animals: cat(s) Sexually active: Yes Current gender identity: female What is your relationship status?: never How often do you talk on the phone with friends or family?: decline to answer How often do you get together with friends or relatives?: decline to answer How often do you attend spiritism or holiness services?: decline to answer Do you belong to any clubs or organized social groups?: no Panel score (0-1 are the most socially isolated patients): 0 Seatbelt use: never Do you feel safe at home: Yes Do you feel safe in your relationship?: Yes Additional Social history: Lives in her own apartment in [facility], uses electric [employer] Meds Allergies and Home Medications Allergies Allergy/AdvReac Type Severity Reaction Status Date / Time hydrocodone Allergy Severe ITCHING Verified 01/30/25 12:26 morphine Allergy Mild PRURITIS Verified 01/30/25 12:26 oxycodone Allergy Mild ITCHING Verified 01/30/25 12:26 Home Medications ?Medication ?Instructions ?Recorded ?Confirmed ?Type ascorbic acid (vitamin C) 1,000 mg 1,000 mg PO DAILY 11/25/12 02/08/25 History tablet inhalational spacing device ##1 12/21/13 02/08/25 History (Aerochamber Mini) Bipap 5 l IN DIRECTED 07/23/14 02/08/25 History betamethasone, augmented 0.05 % 1 applic topical BID PRN allergic 06/20/21 02/08/25 Rx lotion reaction #60 mL oxygen 3 l intranasal DIRECTED 04/02/24 02/08/25 History L. acidophilus,casei,rhamnosus 50 1 cap PO DAILY #4 caps 06/04/24 02/08/25 Rx billion cell capsule,delayed release (BiomePRO) nystatin 100,000 unit/gram topical 1 applic topical BID intertrigo 06/04/24 02/08/25 Rx powder #30 grams albuterol sulfate 90 mcg/actuation 1 - 2 puff inhalation Q6H PRN ##1 07/17/24 02/08/25 Rx aerosol inhaler fluticasone propionate 50 1 spray NS DAILY ##1 07/17/24 02/08/25 Rx mcg/actuation nasal spray,suspension (Flonase Allergy Relief) potassium chloride 20 mEq 20 meq PO DAILY #90 tabs 07/17/24 02/08/25 Rx tablet,extended release(part/cryst) (Klor-Con M) pantoprazole 20 mg tablet,delayed 20 mg PO DAILY #90 tabs 07/26/24 02/08/25 Rx release sertraline 50 mg tablet 50 mg PO DAILY #90 tabs 07/26/24 02/08/25 Rx gabapentin 300 mg capsule 600 mg PO TID PRN 10/11/24 02/08/25 History ipratropium 0.5 mg-albuterol 3 mg 3 ml inhalation Q6H PRN shortness 11/19/24 02/08/25 Rx (2.5 mg base)/3 mL nebulization of breath or wheezing #90 mL soln alclometasone 0.05 % topical cream 1 applic topical BID PRN itching 11/20/24 02/08/25 Rx #45 grams spironolactone 25 mg tablet 25 mg PO DAILY #30 tabs 12/02/24 02/08/25 Rx metolazone 2.5 mg tablet 2.5 mg PO .q tues/frid #20 tabs 12/08/24 02/08/25 Rx ketoconazole 2 % topical cream 1 applic topical BID PRN facial 12/19/24 02/08/25 Rx rash #60 grams norethindrone acetate 5 mg tablet See Rx Instructions .Route 12/31/24 02/08/25 Rx (Gallifrey) .COMPLEX #180 tabs levothyroxine 200 mcg tablet 200 mcg PO DAILY #90 tabs 01/10/25 02/08/25 Rx empagliflozin 10 mg tablet 10 mg PO QAM #90 tabs 02/02/25 02/08/25 Rx (Jardiance) torsemide 20 mg tablet 40 mg (2 x 20 mg) PO BID #120 tabs 02/06/25 02/08/25 Rx prochlorperazine maleate 5 mg 5 mg PO QID PRN #10 tabs 02/07/25 02/08/25 Rx tablet (Compazine) Exam Narrative Exam Narrative: Constitutional Morbidly obese patient 69 yo female s/p left AKA in no acute distress, alert and oriented X4 no neurological focal deficit, no JVD, diminished bilateral basilar breath sounds, no wheezing distant cardiac sounds S1-S2 regular,no murmur, bilateral radial and right dorsalis pedis pulses are positive, bilateral lower extremity edema with left AKA with dressing dry clean and intact changed today Abdomen is large, not distended, soft and tender to right lower- mid quadrant, bowel sounds are present,moves all 4 extremities ; left arm mipilex DCI - changed today, RASS 0, congruent mood and normal affect. Results Labs 02/08/25 14:40 02/08/25 14:40 Labs: Laboratory Results - last 24 hr 02/08/25 14:40 WBC 10.66 RBC 4.37 Hgb 9.6 L Hct 32.1 L MCV 74 L MCH 22.0 L MCHC 29.9 L RDW 22.0 H Plt Count 530 H MPV 9.2 Immature Gran % 1.0 Neutrophils % 75.9 Lymphocytes % 13.1 Monocytes % 6.3 Eosinophils % 3.2 Basophils % 0.5 Nucleated RBC % 0.0 Absolute Neutrophils 8.09 H Absolute Lymphocytes 1.40 Absolute Monocytes 0.67 Absolute Eosinophils 0.34 Absolute Basophils 0.05 RBC Morphology See Below Microcytosis 2+ Sodium 141 Potassium 3.5 Chloride 99 Carbon Dioxide 32.8 H Anion Gap 9.2 BUN 9 Creatinine 0.7 Est GFR (CKD-EPI 2020) 94.15 Glucose 91 Calcium 8.5 Magnesium 2.0 Total Bilirubin 0.8 AST 98 H ALT 115 H Alkaline Phosphatase 120 H Total Protein 7.7 Albumin 2.7 L Triglycerides 143 Lipase 108 H Last Vital Signs Temp 36.9 C 02/08/25 14:06 Pulse 85 02/08/25 14:06 Resp 20 02/08/25 14:06 BP 127/73 02/08/25 14:06 Pulse Ox 90 L 02/08/25 14:06 Time Spent Time spent with Patient: >75 minutes Time was spent: preparing to see the patient(eg.review tests), obtaining and/or reviewing separately otained hiistory, ordering medications,tests, procedures, referring, communicating with other health dog daycare provider, indepentently interpreting results, counseling the patient and care coordination
[2025-02-08] MEDS: Lactated Ringers 1,000 ML 150 ML IV (16:42)
[2025-02-08] MEDS: Ketorolac 15 MG/ML VIAL IVP (18:21)
[2025-02-08] MEDS: Normal Saline Flush 10 ML SYR IVP ×2 (18:22→20:44)
[2025-02-08] MEDS: Pantoprazole 40 MG VIAL IVP (18:22)
--- NOTE | 2025-02-08 18:36 | W.PC.ACHO ---
Registration Status: ADM BEENA Primary Language: Preferred Language: Czech ED Information & Data Chief Complaint Abd Prob 02/08/25 14:17 Triage Note Pt states right sided upper 02/08/25 13:39 quadrant pain that has been ongoing for one week, was told it was pancreatic issue . started vomiting yesterday . Medical / Surgical History (Last Reviewed 11/28/24 @ 21:51 by Brandan Hicks) Fall Abdominal pain Palliative care patient Hypothyroidism DAVID (obstructive sleep apnea) Chronic respiratory failure with hypoxia and hypercapnia Anxiety GERD (gastroesophageal reflux disease) COPD (chronic obstructive pulmonary disease) Atrial fibrillation CHF (congestive heart failure) Lymphedema Hx pulmonary embolism (~2015) (Last Reviewed 11/28/24 @ 21:51 by Brandan Hicks) S/P AKA (above knee amputation) (~09/2024) Status post thyroidectomy History of fasciotomy History of Surgical Procedure Replacement of total knee joint Fasciotomy, Foot (~1996) Most Recent Vital Signs Temperature 37.3 C 02/08/25 17:26 Temperature Source Temporal Artery Scan 02/08/25 17:26 Pulse 82 02/08/25 17:26 Pulse Rhythm Regular 02/08/25 16:58 Respiratory Rate 20 02/08/25 17:26 Respiratory Effort Normal 02/08/25 16:58 Respiratory Depth Normal 02/08/25 16:58 Respiratory Pattern Normal 02/08/25 16:58 Blood Pressure 137/61 02/08/25 17:26 Blood Pressure Mean 86 02/08/25 17:26 Blood Pressure Position Sitting 02/08/25 14:06 Pulse Oximetry 96 02/08/25 17:26 Oxygen Delivery Method Nasal Cannula 02/08/25 17:26 Oxygen Flow Rate 3 02/08/25 17:26 Pain Level 6 02/08/25 18:21 Allergies hydrocodone Allergy (Severe, Verified 01/30/25 12:26) ITCHING morphine Allergy (Mild, Verified 01/30/25 12:26) PRURITIS oxycodone Allergy (Mild, Verified 01/30/25 12:26) ITCHING Precautions Isolation Seizure precaution 02/08/25 14:06 Active Medications Generic Name Dose Route Start Last Admin Trade Name Freq PRN Reason Stop Dose Admin Ketorolac Tromethamine 15 mg 02/08/25 18:00 02/08/25 18:21 Ketorolac 15 Mg/Ml Vial IVP 02/13/25 17:59 15 mg Q8H DEEPTI Administration Pantoprazole Sodium 40 mg 02/08/25 18:00 02/08/25 18:22 Pantoprazole 40 Mg Vial IVP 40 mg DAILY DEEPTI Administration Sodium Chloride 0 ml 02/08/25 16:56 02/08/25 18:22 Normal Saline Flush 10 Ml Syr IVP 20 ml PRN PRN Administration IV IV Catheter Type [Left Peripheral IV Antecubital] IV Catheter Gauge [Left 20 Antecubital] Diet Orders Category Date Time Status Heart Healthy Eating [DIET] Nutrition 02/08/25 Dinner Active Diagnostics 02/08/25 Range/Units 14:40 WBC 10.66 (4.4-10.8) 10^3/uL RBC 4.37 (3.93-5.22) 10^6/uL Hgb 9.6 L (11.2-15.7) g/dL Hct 32.1 L (36.0-46.0) % MCV 74 L (80-95) fL MCH 22.0 L (27.0-33.0) pg MCHC 29.9 L (32.0-36.0) % RDW 22.0 H (11.7-14.6) % Plt Count 530 H (130-400) 10^3/uL MPV 9.2 (8.0-11.0) fL Immature Gran % 1.0 % Neutrophils % 75.9 % Lymphocytes % 13.1 % Monocytes % 6.3 % Eosinophils % 3.2 % Basophils % 0.5 % Nucleated RBC % 0.0 (0.0-0.3) % Absolute Neutrophils 8.09 H (1.2-6.7) 10^3/uL Absolute Lymphocytes 1.40 (1.2-3.4) 10^3/uL Absolute Monocytes 0.67 (0.1-0.8) 10^3/uL Absolute Eosinophils 0.34 (0.0-0.7) 10^3/uL Absolute Basophils 0.05 (0.0-0.2) 10^3/uL RBC Morphology See Below Microcytosis 2+ Sodium 141 (136-145) mmol/L Potassium 3.5 (3.5-5.1) mmol/L Chloride 99 (98-107) mmol/L Carbon Dioxide 32.8 H (21.0-32.0) mmol/L Anion Gap 9.2 (3-11) mmol/L BUN 9 (7-18) mg/dL Creatinine 0.7 (0.55-1.02) mg/dL Est GFR (CKD-EPI 2020) 94.15 (mL/min/1.73m2) Glucose 91 (74-106) mg/dL Calcium 8.5 (8.5-10.1) mg/dL Magnesium 2.0 (1.8-2.4) mg/dL Total Bilirubin 0.8 (0.2-1.0) mg/dL AST 98 H (15-37) U/L ALT 115 H (14-59) U/L Alkaline Phosphatase 120 H (46-116) U/L Total Protein 7.7 (6.4-8.2) g/dL Albumin 2.7 L (3.4-5.0) g/dL Triglycerides 143 (<150) mg/dL Lipase 108 H (<78) U/L Intake and Output - 24 Hour Total 02/08/25 13:24 thru 02/08/25 18:28 Intake Total 410 Balance 410 Weight 172.819 kg Intake: IV 10 Oral 400 Falls Risk Assessment History of Falls Previous History 02/08/25 16:58 Contributing Factors Impairments 02/08/25 16:58 Ambulatory Aids Uses ambulatory device + 02/08/25 16:58 Tubes/Lines With any additional score 02/08/25 16:58 Cognition No cognitive impairment 02/08/25 16:58 Fall Total Score 68 02/08/25 16:58 Level of Risk High Risk 02/08/25 16:58 Problems (Last Reviewed 11/28/24 @ 21:51 by Brandan Hicks) Laceration of left upper extremity (Acute) Discharge planning issues (Acute) Abnormal transaminases (Acute) Pancreatitis (Chronic) Acute biliary pancreatitis (Acute) Anemia (Chronic) COPD exacerbation (Acute) Left above-knee amputee (Acute) On deep vein thrombosis (DVT) prophylaxis (Acute) Heart failure with preserved ejection fraction (Acute) Morbid obesity (Acute 04/05/13) Depression (Chronic) v v v v v v v v v Sending and/or Receiving Nurses: Please use comment section below to note any information pertinent to the patient hand-off not included above. Information / Comments: Report received from: Called Anay in ED at 16:17 for report. VS were done 2 hours prior: 36.9, 90% on 3L, 20, 85, 127/73. Pt left [facility] yesterday AMA, started to feel worse and came back via [facility] for reevaluation. Her lipase yesterday was 2224, today it is 108
[2025-02-08] MEDS: Prochlorperazine 10 MG/2 ML VIAL 5 MG IVP (20:43)
[2025-02-08] MEDS: Norethindrone 5 MG TAB 10 MG PO (20:43)
[2025-02-08] MEDS: Enoxaparin 40 MG/0.4 ML SYR SC (20:43)
[2025-02-09] MEDS: Ketorolac 15 MG/ML VIAL IVP ×3 (01:46→18:42)
[2025-02-09] MEDS: Lactated Ringers 1,000 ML 75 ML IV ×2 (04:33→18:10)
[2025-02-09] MEDS: Levothyroxine 200 MCG TAB PO (06:04)
[2025-02-09 07:25] LABS: Immature Grans % 0.9 %
[2025-02-09 07:34] LABS: Abs Immature Grans 0.08 10^3/uL (0.0-0.06); Absolute Basophil Count 0.06 10^3/uL (0.0-0.2); Absolute Eosinophil Count 0.29 10^3/uL (0.0-0.7); Absolute Lymphocyte Count 1.78 10^3/uL (1.2-3.4); Absolute Monocyte Count 0.65 10^3/uL (0.1-0.8); Basophils % 0.7 %; Eosinophils % 3.4 %; HCT 31.8 % (36.0-46.0); MCHC 29.6 % (32.0-36.0); Monocytes % 7.7 %; Neutrophils % 66.3 %; Platelet Count 520 10^3/uL (130-400); RBC 4.28 10^6/uL (3.93-5.22); RDW-SD 52.9 fL; WBC 8.46 10^3/uL (4.4-10.8)
[2025-02-09 07:37] LABS: HGB 9.4 g/dL (11.2-15.7); MCV 74 fL (80-95); MPV 9.4 fL (8.0-11.0); RDW 23.1 % (11.7-14.6)
[2025-02-09 08:05] VITALS: BP 105/54; PULSE 74; RESP 20; TEMP 36.8; O2SAT 93
[2025-02-09 08:21] LABS: ALT 145 U/L (14-59); AST 121 U/L (15-37); Albumin 2.6 g/dL (3.4-5.0); Alkaline Phosphatase 107 U/L (46-116); Anion Gap 9.8 mmol/L (3-11); BUN 12 mg/dL (7-18); Bilirubin, Total 0.9 mg/dL (0.2-1.0); CO2 31.2 mmol/L (21.0-32.0); CREATININE 0.8 mg/dL (0.55-1.02); Calcium 8.6 mg/dL (8.5-10.1); Chloride 100 mmol/L (98-107); Estimated GFR 80.21 (mL/min/1.73m2); Glucose 85 mg/dL (74-106); Potassium 3.5 mmol/L (3.5-5.1); Sodium 141 mmol/L (136-145); Total Protein 7.5 g/dL (6.4-8.2)
[2025-02-09] MEDS: Pantoprazole 40 MG VIAL IVP (09:33)
[2025-02-09] MEDS: Enoxaparin 40 MG/0.4 ML SYR SC ×2 (09:33→20:23)
[2025-02-09] MEDS: Prochlorperazine 10 MG/2 ML VIAL 5 MG IVP ×3 (09:33→20:24)
[2025-02-09] MEDS: Normal Saline Flush 10 ML SYR IVP ×2 (09:34→20:24)
[2025-02-09] MEDS: Norethindrone 5 MG TAB 10 MG PO ×2 (09:34→20:23)
[2025-02-09] MEDS: Potassium Chloride 20 MEQ TABCR PO (09:34)
[2025-02-09] MEDS: Torsemide 20 MG TAB 40 MG PO ×2 (09:35→15:36)
[2025-02-09] MEDS: Spironolactone 25 MG TAB PO (09:35)
[2025-02-09] MEDS: Ascorbic Acid 500 MG TAB 1000 MG PO (09:35)
[2025-02-09] MEDS: Lactobacillus Acidophilus CAP 1 CAP PO (09:35)
[2025-02-09] MEDS: Empaglifozin 10 MG TAB PO (09:35)
[2025-02-09] MEDS: Sertraline 50 MG TAB PO (09:35)
[2025-02-09] MEDS: Fluticasone NASAL SPRAY 16 GM BTL NS (09:39)
[2025-02-09 12:19] LABS: Bilirubin Small (Negative); Blood Moderate (Negative); Clarity Sl Cloudy (Clear); Glucose Negative (Negative); Ketones Negative (Negative); Leukocyte Esterase Trace (Negative); Nitrite Negative (Negative); pH 5.5 (5-8)
[2025-02-09 12:40] LABS: Bacteria Few HPF (Negative); C & S Indicated? No; Casts Negative LPF (Negative); Crystals Negative HPF (Negative); Epithelial Cells Moderate HPF (Negative); Mucus Negative (Negative)
--- NOTE | 2025-02-09 14:23 | PGE_ITS ---
Date of Service Date of service: 02/09/25 Time of Service: 14:23 Assessment and Plan Assessment and plan (1) Acute biliary pancreatitis: Status: Acute Assessment and plan: Symptoms and labs improving clinically We will advance diet as tolerated Ketorolac IVP PRN (2) Anemia: Status: Chronic Assessment and plan: Microcytic and stable on 02/03-Transferrin sat 6 and iron 19- consider IV ferrous carboxymaltose in the setting of HFpEF and anemia Recommends opt f/u for anemia work-up and oral iron as per PCP (3) COPD exacerbation: Status: Acute Assessment and plan: continue home meds regimen IS d/t suspected bibasilar atelectasis (4) Laceration of left upper extremity: Status: Acute Assessment and plan: Wash with sterile saline - dry and apply mepilex q 3 days - (5) Left above-knee amputee: Status: Acute Assessment and plan: Dressing change as ordered outpatient to stump (6) On deep vein thrombosis (DVT) prophylaxis: Status: Acute Assessment and plan: On LMWH (7) Heart failure with preserved ejection fraction: Status: Acute Assessment and plan: Appears euvolemic continue home med regimen last echo on 02/01 shows EF 60% (8) Morbid obesity: Status: Acute Assessment and plan: on going weight loss ongoing heart healthy diet d/t pancreatitis - GLP-1 inhibitors might be questionable (9) Depression: Status: Chronic Assessment and plan: outpatient med regimen (10) Discharge planning issues: Status: Acute Assessment and plan: Discharge home when can tolerate po, anticipate tomorrow if remains medically stable Discussed with Dr. Reyes Subjective Subjective Patient reports: no new complaints, feels better, tolerating liquids well and afebrile; denies nausea or shortness of breath Interval history since last seen: Continues to wear CPAP as directed, denies abdominal pain tolerating clear liquid Exam Const Nutritional Appearance: obese morbidly obese Orientation: alert, awake and oriented x3 HENMT Head: normal to inspection, normocephalic and atraumatic Mouth: oral mucosae normal Eyes General: appearance normal, both eyes and all related structures Resp Effort & Inspection: normal respiratory effort Auscultation: diminished lung sounds bilaterally Cardio Rate: regular rate Rhythm: regular rhythm GI Inspection: large pannus and obesity Palpation: soft Extrem General: edema (Lymphedema) Laterality: bilateral Psych Mental Status: mental status grossly normal Speech and Movement: speech and movement normal Mood: congruent mood Affect: irritable affect Objective Last Vital Signs Temp 36.8 C 02/09/25 08:05 Pulse 74 02/09/25 08:05 Resp 20 02/09/25 08:05 BP 105/54 L 02/09/25 08:05 Pulse Ox 93 02/09/25 08:05 Laboratory Results - last 24 hr 02/08/25 02/09/25 02/09/25 14:40 07:15 11:35 WBC 10.66 8.46 RBC 4.37 4.28 Hgb 9.6 L 9.4 L Hct 32.1 L 31.8 L MCV 74 L 74 L MCH 22.0 L 22.0 L MCHC 29.9 L 29.6 L RDW 22.0 H 23.1 H Plt Count 530 H 520 H MPV 9.2 9.4 Immature Gran % 1.0 0.9 Neutrophils % 75.9 66.3 Lymphocytes % 13.1 21.0 Monocytes % 6.3 7.7 Eosinophils % 3.2 3.4 Basophils % 0.5 0.7 Nucleated RBC % 0.0 0.0 Absolute Neutrophils 8.09 H 5.60 Absolute Lymphocytes 1.40 1.78 Absolute Monocytes 0.67 0.65 Absolute Eosinophils 0.34 0.29 Absolute Basophils 0.05 0.06 RBC Morphology See Below Microcytosis 2+ Sodium 141 141 Potassium 3.5 3.5 Chloride 99 100 Carbon Dioxide 32.8 H 31.2 Anion Gap 9.2 9.8 BUN 9 12 Creatinine 0.7 0.8 Est GFR (CKD-EPI 2020) 94.15 80.21 Glucose 91 85 Calcium 8.5 8.6 Magnesium 2.0 2.0 Total Bilirubin 0.8 0.9 AST 98 H 121 H ALT 115 H 145 H Alkaline Phosphatase 120 H 107 Total Protein 7.7 7.5 Albumin 2.7 L 2.6 L Triglycerides 143 Lipase 108 H Urine Color Yellow Urine Clarity Sl Cloudy Urine pH 5.5 Ur Specific [place] 1.020 Urine Protein Negative Urine Ketones Negative Urine Blood Moderate H Urine Nitrite Negative Urine Bilirubin Small H Urine Urobilinogen 1.0 H Ur Leukocyte Esterase Trace H Urine RBC 5-10 H Urine WBC 3-5 Ur Epithelial Cells Moderate Urine Crystals Negative Urine Bacteria Few Urine Casts Negative Urine Mucus Negative Ur Culture Indicated? No Urine Glucose Negative Time Spent with Patient Time Spent with Patient: 35-49 minutes Time was spent: preparing to see the patient(eg.review tests), obtaining and/or reviewing separately otained hiistory, ordering medications,tests, procedures, indepentently interpreting results and counseling the patient
--- NOTE | 2025-02-09 19:58 | PDOC.CMIN ---
Date of service: 02/09/25 Time of Service: 19:58 Care Management Initial Assmt Initial Assessment Reason for Hospitalization: pancreatitis, nausea, vomiting Functional Status/Living Situation Patient Presentation: Radha was lying in bed when CM met with her. Her own electric w/c was in the room. She stated that she was recently discharged from [facility] earlier this week, and felt ok, but had more episodes of vomiting at home. She stated that it took an extra day for her to get her medications, as the prescription needed to be re written by the provider. She stated that she isn't having a lot of pain today, but when she tried to eat crackers, after her diet was advanced from clear liquids, she was not able to keep it down. She is hoping to return home tomorrow, and she has a follow up appointment scheduled with her PCP on 02/12/25 already. Town of Residence: [facility] Resides with: Other ([place]) Significant Other/Family: Local Natural Supports: [place] Employment Status: Retired Instrumental Activities of Daily Living (ADLs): Independent Medications Medication Management: No Issues/Barriers identified Physical Functioning/Mobility Assistive Device: electric w/c, walker, commode home O2, 2L baseline Advance Directives Advance Directives: Do you have an Advance Directive: Y 04/11/24, 07:49 AD On File at [facility]: Y 04/11/24, 07:49 Date Asked 12/06/24 12/06/24, 16:42 AD Date Reviewed 02/08/25 02/08/25, 16:32 COLST On File at [facility] COLST Date Scanned Code Status Resuscitation Status Full Code Insurance Coverage/Financial Issues Insurance: [facility] Care Team Visit Care Team Role Provider Type Mine Farah NP NURSE PRACTITIONER Alphonso Murphy MD Primary Care Provider [facility] STAFF PHYSICIAN INESSA Ngo Emergency Provider PHYSICIANS MICROSTRATEGY BI DEVELOPER Marek Reyes MD Admit Provider [facility] STAFF PHYSICIAN Attending Provider Discharge Potential Discharge Needs: PCP F/U Appt (scheduled for 02/12/25) Anticipated Barriers to Discharge: None Identified Patient/Family Education Needs: Review discharge instructions, discuss Ask Me Three Transportation: Private vehicle Plan: Anticipate Radha will return home with a resumption of HH RN (3x/week for wound care), PT, SUPERVISOR FINISHING ROOM. She will transport via private vehicle by family. She will follow up with her PCP and discharge plan of care. CM will continue to follow. Social Determinants of Health Screening Will the Patient Participate in the Screening?: Declined to provide PFSH All Active Problems (Updated 02/08/25 @ 17:41 by Zoila De La Garza APRN) Laceration of left upper extremity (Acute) Discharge planning issues (Acute) Abnormal transaminases (Acute) Pancreatitis (Chronic) Acute biliary pancreatitis (Acute) Laceration of left forearm (Acute) Anemia (Chronic) COPD exacerbation (Acute) Electrolyte disturbance (Acute) Acute on chronic hypoxic respiratory failure (Acute) Left above-knee amputee (Acute) On deep vein thrombosis (DVT) prophylaxis (Acute) Advanced care planning/counseling discussion (Acute) Elevated liver enzymes (Acute) Exertional shortness of breath (Acute) Heart failure with preserved ejection fraction (Acute) Wound dehiscence (Acute) Thickened endometrium (Acute) Postmenopausal bleeding (Acute) Venous stasis dermatitis (Acute) Chronic headaches (Chronic) Recent Neurology consult for possible papilledema. Urinary incontinence (Chronic) On Detrol Recurrent UTI (Chronic) Right ventricular dysfunction (Chronic) Knee pain, bilateral (Chronic 07/23/14) s/p bilat TKR (left infected with mult surg and decreased mobility) Morbid obesity (Acute 04/05/13) Sensorineural hearing loss, bilateral (Chronic 08/29/13) Advance directive on file (Acute) Low back pain with sciatica (Chronic 05/03/14) [place] [facility] [place] Varicose veins of lower extremity (Chronic) Depression (Chronic) Grief at loss of child (Acute) Mixed conductive and sensorineural hearing loss of both ears (Acute) Right carpal tunnel syndrome (Acute) Arthritis of right hand (Acute) Impingement of right ulnar nerve (Acute) Dermoid cyst of neck (Acute) Microcalcifications of the breast (Acute) Neuropathy of left hand (Acute) Neuropathy of right hand (Acute) Bilateral carpal tunnel syndrome (Acute) Medical History Palliative care patient CHF (congestive heart failure) Atrial fibrillation COPD (chronic obstructive pulmonary disease) Hx pulmonary embolism (~2015) treated with lovenox x 3 months GERD (gastroesophageal reflux disease) had negative barium esophagram in 11/2022. Anxiety Lymphedema Hypothyroidism DAVID (obstructive sleep apnea) on BiPap Chronic respiratory failure with hypoxia and hypercapnia home BiPap Surgical History S/P AKA (above knee amputation) (~09/2024) Status post thyroidectomy History of fasciotomy Replacement of total knee joint Bilateral; left-became [id number] surgeries Fasciotomy, Foot (~1996) LEFT History of Surgical Procedure a. Right and left toal knee replacements. b. Left knee has been repeatedly operated on with slava surgies, three replacements. Family History Mother Diabetes Personal history of malignant neoplasm LUNG Father Personal history of malignant neoplasm BRAIN Grandfather No problems noted. Grandfather No problems noted. Grandmother No problems noted. Grandmother No problems noted. Social History (Updated 11/28/24 @ 21:52 by Brandan Hicks) Smoking/Tobacco Use Status: Former Tobacco Use tobacco type: cigarettes Quit Date: 01/21/21 Second Hand Exposure: Yes Smoking risk assessment performed?: Yes Alcohol Intake: never Drug use: Never Substance use type: does not use Counseling given: No Housing: apartment Communication Needs: Hard of Hearing and Corrective Lenses Pets and animals: Yes Pets and animals: cat(s) Sexually active: Yes Current gender identity: female What is your relationship status?: never How often do you talk on the phone with friends or family?: decline to answer How often do you get together with friends or relatives?: decline to answer How often do you attend scientologist or islam services?: decline to answer Do you belong to any clubs or organized social groups?: no Panel score (0-1 are the most socially isolated patients): 0 Seatbelt use: never Do you feel safe at home: Yes Do you feel safe in your relationship?: Yes Additional Social history: Lives in her own apartment in [facility], uses electric scooter Readmission Within the Past 30 Days Yes or No: Yes Date of First Admission Date of 1st Admission: 02/01/25 Date of this Admission Date of Admission: 02/08/25 This admission was: Through ED Office Visit Since 1st Admission Have you seen your PCP in the office since discharge?: No Had an appointment Been Scheduled?: Yes Date of Scheduled Appointment: 02/12/25 I. Interview patient and/or Family Difficulty reaching your doctor or getting an office appt?: No Have you had trouble purchasing/ or taking medication?: Yes Describe barriers fpr purchasing or taking medication: Recent discharge; prescription was sent to pharmacy and her insurance denied it. Once rewritten she was able to obtain it, more than 24H post discharge. How do you take your medications and set up your pills?: independently Did you feel ready for discharge when you left the last time: Yes Were services received that you thought were set up on disch: No Why weren't services received?: returned to hospital Did you call your physician beore you came to the ED?: No How do you think you became sick enough to come back?: Radha was unclear why she became sick again, as she reported feeling ready for discharge when she left. Her nausea/vomiting returned at home. If the patient had a VNA ordered Did the patient have a VNA order?: Yes ED visits How many ED visits in the past 12 months: 15 Assessment for Readmission Summary of readmission circumstances, based upon interviews: Radha was discharged on 02/05/25, but was not able to order picker her prescriptions until late in the day 02/06/25. She stated that she felt ready to discharge at that time, but her nausea returned a couple of days later. She stated that she has a follow up appt with her PCP on 02/12/25. She is hoping to be discharged soon so that she can make it to that appt. Anticipated HH Services Anticipated HH Services at Discharge [facility] Resumption, SUPERVISOR FINISHING ROOM, PT and RN Anticipated Date of Discharge: 02/10/25. Following Provider: Alphonso Murphy.
[2025-02-09 20:03] VITALS: PULSE 73; O2SAT 95
[2025-02-09 21:15] VITALS: BP 146/67; PULSE 87; TEMP 37.6; O2SAT 96
[2025-02-10] MEDS: Ketorolac 15 MG/ML VIAL IVP (01:27)
[2025-02-10] MEDS: Levothyroxine 200 MCG TAB PO (05:34)
[2025-02-10 07:46] VITALS: BP 110/54; PULSE 72; RESP 17; TEMP 37.2; O2SAT 97
[2025-02-10] MEDS: Enoxaparin 40 MG/0.4 ML SYR SC (08:36)
[2025-02-10] MEDS: Empaglifozin 10 MG TAB PO (08:37)
[2025-02-10] MEDS: Ascorbic Acid 500 MG TAB 1000 MG PO (08:37)
[2025-02-10] MEDS: Pantoprazole 40 MG VIAL IVP (08:37)
[2025-02-10] MEDS: Norethindrone 5 MG TAB 10 MG PO (08:37)
[2025-02-10] MEDS: Torsemide 20 MG TAB 40 MG PO (08:37)
[2025-02-10] MEDS: Prochlorperazine 10 MG/2 ML VIAL 5 MG IVP (08:37)
[2025-02-10] MEDS: Spironolactone 25 MG TAB PO (08:37)
[2025-02-10] MEDS: Potassium Chloride 20 MEQ TABCR PO (08:38)
[2025-02-10] MEDS: Normal Saline Flush 10 ML SYR IVP (08:38)
[2025-02-10] MEDS: Sertraline 50 MG TAB PO (08:38)
[2025-02-10] MEDS: Lactobacillus Acidophilus CAP 1 CAP PO (08:38)
[2025-02-10 08:52] VITALS: PULSE 93; RESP 20; RESP 5; RESP 9; O2SAT 96
[2025-02-10] MEDS: Albuterol/Ipratropium 3 ML UPD VIAL IH (08:52)
[2025-02-10 08:56] VITALS: RESP 25
[2025-02-10 08:58] VITALS: O2SAT 96
[2025-02-10 08:59] VITALS: PULSE 98; RESP 20; RESP 9; O2SAT 97
--- NOTE | 2025-02-10 11:07 | DSE_ITS ---
Date of service: 02/10/25 Time of Service: 11:07 DS: Diagnosis Discharge Diagnosis (1) Acute biliary pancreatitis: Status: Acute (2) Anemia: Status: Chronic (3) COPD exacerbation: Status: Acute (4) Laceration of left upper extremity: Status: Acute (5) Left above-knee amputee: Status: Acute (6) Heart failure with preserved ejection fraction: Status: Acute (7) Morbid obesity: Status: Acute (8) Depression: Status: Chronic Discharge Plan Disposition Patient Disposition: Home W/Home Health Services Condition: Stable Discharge Details Reason For Visit: pancreatitis, nausea, vomiting Admit Date/Time: 02/08/25 15:59 Admit Provider: Marek Reyes Attending Provider: Marek Reyes Primary Care Provider: Alphonso Murphy Hospital Course Hospital Course: This is a 69-year-old female well-known to the hospitalist service for recurrent admissions usually for hypoxic respiratory failure secondary to COPD exacerbation or heart failure presents with abdominal pain this time found to have acute pancreatitis. She was admitted to the hospitalist services on bowel rest. Symptoms improved and diet advanced. She remained hemodynamically stable. She her home medications were continued and [facility] She is tolerating a regular diet and feels that she is ready for discharge to home. There are no new prescriptions at discharge Discharge discussed with Dr. Reyes Home Meds and New Rx's Prescriptions: Continued albuterol sulfate 90 mcg/actuation HFA aerosol inhaler 1 - 2 puff Inhalation Q6H PRN Qty: 1 11RF fluticasone propionate [Flonase Allergy Relief] 50 mcg/actuation spray,suspension 1 spray NS DAILY Qty: 1 8RF potassium chloride [Klor-Con M20] 20 mEq tablet,ER particles/crystals 20 meq PO DAILY Qty: 90 3RF alclometasone 0.05 % cream 1 applic topical BID PRN (Reason: itching) Qty: 45 1RF gabapentin 300 mg capsule 600 mg PO TID PRN levothyroxine 200 mcg tablet 200 mcg PO DAILY Qty: 90 3RF ascorbic acid (vitamin C) 1,000 MG tablet 1,000 mg PO DAILY BiPAP Inhalation Gas 5 l IN DIRECTED Rx Instructions: sleep apnea ([facility] sleep lab 2013) uses with oxygen betamethasone, augmented 0.05 % lotion 1 applic topical BID PRN (Reason: allergic reaction) Qty: 60 2RF oxygen Inhalation 3 l Intranasal DIRECTED Patient Comments: Continuous and uses with bipap Rx Instructions: 3L/NC continuous pantoprazole 20 mg tablet,delayed release (DR/EC) 20 mg PO DAILY Qty: 90 3RF Rx Instructions: 04/13/23 Per GI. -hb sertraline 50 mg tablet 50 mg PO DAILY Qty: 90 3RF metolazone 2.5 mg tablet 2.5 mg PO .q tues/frid Qty: 20 2RF ketoconazole 2 % cream 1 applic topical BID PRN (Reason: facial rash) Qty: 60 1RF norethindrone acetate [Gallifrey] 5 mg tablet See Rx Instructions .ROUTE .COMPLEX Qty: 180 1RF Dose Instruction: TAKE TWO TABLETS BY MOUTH TWICE A DAY Rx Instructions: TAKE TWO TABLETS BY MOUTH TWICE A DAY Jardiance 10 mg tablet 10 mg PO QAM Qty: 90 3RF torsemide 20 mg tablet 40 mg PO BID Qty: 120 1RF prochlorperazine maleate [Compazine] 5 mg tablet 5 mg PO QID PRNQty: 10 0RF nystatin 100,000 unit/gram powder 1 applic TP BID Qty: 30 5RF BiomePRO 50 billion cell capsule,delayed release(DR/EC) 1 cap PO DAILY Qty: 4 0RF Rx Instructions: Take 3 hours apart form any antibiotics ipratropium-albuterol 0.5 mg-3 mg(2.5 mg base)/3 mL solution for nebulization 3 ml inhalation Q6H PRN (Reason: shortness of breath or wheezing) Qty: 90 0RF spironolactone 25 mg Tablet 25 mg PO DAILY Qty: 30 0RF Discharge Instructions Instructions: Acute pancreatitis Stand Alone Forms: Nursing Discharge Form Referrals: Alphonso Murphy MD [Primary Care Provider, Medicine] Referral Note: Please follow up with your previously set up appointment. Activity:: Activity as Tolerated Equipment/Supplies:: No Equipment Needed Diet:: As Tolerated Discharge Orders Discharge Orders: Discharge Order (Routine); Ordered 02/10/25 Ordered By: Mine Farah Discharge Data Discharge Date/Time-TO BE ENTERED AT DEPARTURE: 02/10/25 13:10 DS: Summary Time Spent with Patient providing and/or coordinating discharge services: Greater than 30 minutes Status at Discharge Functional status at discharge: wheelchair bound Overall status at discharge: patient is back to baseline Mental Status: mental status grossly normal Speech and Movement: speech and movement normal Mood: congruent mood Affect: irritable affect Quality:SDOH Health Related Social Needs: Health related social needs material hardship Health related social needs details Pt refuses to answ er questions Exam Const Nutritional Appearance: obese morbidly obese Orientation: alert, awake and oriented x3 HENMT Head: normal to inspection, normocephalic and atraumatic Mouth: oral mucosae normal Eyes General: appearance normal, both eyes and all related structures Resp Effort & Inspection: normal respiratory effort Auscultation: diminished lung sounds bilaterally Cardio Rate: regular rate Rhythm: regular rhythm GI Inspection: large pannus and obesity Palpation: soft Extrem General: edema (Lymphedema) Laterality: bilateral Psych Mental Status: mental status grossly normal Speech and Movement: speech and movement normal Mood: congruent mood Affect: irritable affect DS: Data Vitals/I&O Vitals and I&O: Vital Signs Temperature 37.2 C 02/10/25 07:46 Temperature Source Temporal Artery Scan 02/10/25 07:46 Pulse 98 H 02/10/25 08:59 Pulse Rhythm Regular 02/08/25 16:58 Respiratory Rate 20 02/10/25 08:59 Respiratory Effort Normal 02/08/25 16:58 Respiratory Depth Normal 02/08/25 16:58 Respiratory Pattern Normal 02/08/25 16:58 Blood Pressure 110/54 L 02/10/25 07:46 Blood Pressure Mean 72 02/10/25 07:46 Blood Pressure Position Sitting 02/08/25 14:06 Pulse Oximetry 97 02/10/25 08:59 Oxygen Delivery Method Nasal Cannula 02/10/25 08:58 Oxygen Flow Rate 3 02/10/25 08:58 Pain Level 0 02/10/25 07:46 Intake & Output 02/09/25 02/09/25 02/10/25 11:59 23:59 11:59 Intake Total 1009 1000 / 1010 1000 / 1000 Output Total 100 / 400 300 / 400 Balance -90 / 610 700 / 610 1000 / 1000 Weight 174.5 kg 176.5 kg Intake: IV 1009 / 1010 1000 / 1000 Output: Urine 100 / 400 300 / 400 Other: Urine Color Straw Yellow Urine Appearance Clear Clear Urine Odor Normal Normal Stool Size Small Moderate Stool Characteristics Formed Soft Hard Data Completed and Pending Labs on day of discharge: Labs from last 24 hours 02/09/25 11:35 Urine Color Yellow Urine Clarity Sl Cloudy Urine pH 5.5 Ur Specific [place] 1.020 Urine Protein Negative Urine Ketones Negative Urine Blood Moderate H Urine Nitrite Negative Urine Bilirubin Small H Urine Urobilinogen 1.0 H Ur Leukocyte Esterase Trace H Urine RBC 5-10 H Urine WBC 3-5 Ur Epithelial Cells Moderate Urine Crystals Negative Urine Bacteria Few Urine Casts Negative Urine Mucus Negative Ur Culture Indicated? No Urine Glucose Negative PFSH All Active Problems (Updated 02/08/25 @ 17:41 by Zoila De La Garza APRN) Laceration of left upper extremity (Acute) Discharge planning issues (Acute) Abnormal transaminases (Acute) Pancreatitis (Chronic) Acute biliary pancreatitis (Acute) Laceration of left forearm (Acute) Anemia (Chronic) COPD exacerbation (Acute) Electrolyte disturbance (Acute) Acute on chronic hypoxic respiratory failure (Acute) Left above-knee amputee (Acute) On deep vein thrombosis (DVT) prophylaxis (Acute) Advanced care planning/counseling discussion (Acute) Elevated liver enzymes (Acute) Exertional shortness of breath (Acute) Heart failure with preserved ejection fraction (Acute) Wound dehiscence (Acute) Thickened endometrium (Acute) Postmenopausal bleeding (Acute) Venous stasis dermatitis (Acute) Chronic headaches (Chronic) Recent Neurology consult for possible papilledema. Urinary incontinence (Chronic) On Detrol Recurrent UTI (Chronic) Right ventricular dysfunction (Chronic) Knee pain, bilateral (Chronic 07/23/14) s/p bilat TKR (left infected with mult surg and decreased mobility) Morbid obesity (Acute 04/05/13) Sensorineural hearing loss, bilateral (Chronic 08/29/13) Advance directive on file (Acute) Low back pain with sciatica (Chronic 05/03/14) [place] [facility] [place] Varicose veins of lower extremity (Chronic) Depression (Chronic) Grief at loss of child (Acute) Mixed conductive and sensorineural hearing loss of both ears (Acute) Right carpal tunnel syndrome (Acute) Arthritis of right hand (Acute) Impingement of right ulnar nerve (Acute) Dermoid cyst of neck (Acute) Microcalcifications of the breast (Acute) Neuropathy of left hand (Acute) Neuropathy of right hand (Acute) Bilateral carpal tunnel syndrome (Acute) Medical History Palliative care patient CHF (congestive heart failure) Atrial fibrillation COPD (chronic obstructive pulmonary disease) Hx pulmonary embolism (~2015) treated with lovenox x 3 months GERD (gastroesophageal reflux disease) had negative barium esophagram in 11/2022. Anxiety Lymphedema Hypothyroidism DAVID (obstructive sleep apnea) on BiPap Chronic respiratory failure with hypoxia and hypercapnia home BiPap Surgical History S/P AKA (above knee amputation) (~09/2024) Status post thyroidectomy History of fasciotomy Replacement of total knee joint Bilateral; left-became [id number] surgeries Fasciotomy, Foot (~1996) LEFT History of Surgical Procedure a. Right and left toal knee replacements. b. Left knee has been repeatedly operated on with slava surgies, three replacements. Family History Mother Diabetes Personal history of malignant neoplasm LUNG Father Personal history of malignant neoplasm BRAIN Grandfather No problems noted. Grandfather No problems noted. Grandmother No problems noted. Grandmother No problems noted. Social History (Updated 11/28/24 @ 21:52 by Brandan Hicks) Smoking/Tobacco Use Status: Former Tobacco Use tobacco type: cigarettes Quit Date: 01/21/21 Second Hand Exposure: Yes Smoking risk assessment performed?: Yes Alcohol Intake: never Drug use: Never Substance use type: does not use Counseling given: No Housing: apartment Communication Needs: Hard of Hearing and Corrective Lenses Pets and animals: Yes Pets and animals: cat(s) Sexually active: Yes Current gender identity: female What is your relationship status?: never How often do you talk on the phone with friends or family?: decline to answer How often do you get together with friends or relatives?: decline to answer How often do you attend jainism or jew services?: decline to answer Do you belong to any clubs or organized social groups?: no Panel score (0-1 are the most socially isolated patients): 0 Seatbelt use: never Do you feel safe at home: Yes Do you feel safe in your relationship?: Yes Additional Social history: Lives in her own apartment in [facility], uses [employer] Time Spent with Patient Time Spent with Patient: 45-69 minutes Time was spent: preparing to see the patient(eg.review tests), obtaining and/or reviewing separately otained hiistory, ordering medications,tests, procedures, indepentently interpreting results and counseling the patient
--- NOTE | 2025-02-10 13:43 | PDOC.CMDIS ---
Date of service: 02/10/25 Time of Service: 13:43 LACE Index Scoring Tool Questions: Length of Stay (in days): 2 Was the patient admitted via the E.D.?: Yes Comorbidities: Congestive Heart Failure and Chronic Pulmonary Disease E.D. Visits: 8 Answers: Total Score: 14 Risk of Readmission: High Risk Care Management Discharge Plan Reason for Hospitalization: pancreatitis, nausea, vomiting Discharge Plan: Radha returned home today with a resumption of HH RN, PT, SENIOR SAFETY MANAGEMENT CONSULTANT. She was driven home via private vehicle by family. She will follow up with her PCP and discharge plan of care. Patient/Family Education Needs: Review discharge instructions and limitations, discussion of self care needs including ask me three. Services Needed at Discharge: Home Health Care Services (resumption of HH RN, PT, SENIOR SAFETY MANAGEMENT CONSULTANT) SDOH Health Related Social Needs: Health related social needs material hardship Health related social needs details Pt refuses to answer questions
--- NOTE | 2025-02-11 07:36 | NUR.NOTE ---
Access chart to determine who the provider was that put in the order for US abd limited. It was the [facility] [facility] [employer] hospitalist and DI will address this. Nursing Note:
== END 2025-02-10 13:10 | disposition home health service (06) ==
LOC: ER 16:42 → MS 16:56
PROVIDERS: Nurse Practitioner Acute Care; Admitting Provider Family Medicine; Emergency Provider Physician Assistant; PCP Family Medicine; Responsible Provider Nurse Practitioner Acute Care; Visit Provider Family Medicine
DX: K85.10 Biliary acute pancreatitis without necrosis or infection (principal); R74.8 Abnormal levels of other serum enzymes; J44.1 Chronic obstructive pulmonary disease with (acute) exacerbation; Z89.612 Acquired absence of left leg above knee; E66.01 Morbid (severe) obesity due to excess calories; Z68.44 Body mass index [BMI] 60.0-69.9, adult; I50.32 Chronic diastolic (congestive) heart failure; R74.01 Elevation of levels of liver transaminase levels; R11.2 Nausea with vomiting, unspecified; D50.9 Iron deficiency anemia, unspecified; F32.A Depression, unspecified; Z99.81 Dependence on supplemental oxygen; I87.2 Venous insufficiency (chronic) (peripheral); H90.3 Sensorineural hearing loss, bilateral; R32 Unspecified urinary incontinence; I48.91 Unspecified atrial fibrillation; I89.0 Lymphedema, not elsewhere classified; J96.11 Chronic respiratory failure with hypoxia; J96.12 Chronic respiratory failure with hypercapnia; F41.9 Anxiety disorder, unspecified; K21.9 Gastro-esophageal reflux disease without esophagitis; G47.33 Obstructive sleep apnea (adult) (pediatric); Z86.711 Personal history of pulmonary embolism; E89.0 Postprocedural hypothyroidism; Z96.651 Presence of right artificial knee joint; S51.812A Laceration without foreign body of left forearm, initial encounter; X58.XXXA Exposure to other specified factors, initial encounter
CPT/HCPCS: 00123; 36415; 80053; 83690; 93005; 94761; 96361; 96372; 96374; 96375; 96376; 99285; J1650; 81003; 81015; 83735; 84478; 85025; 93010; 94640; 94760; 99223; 99233; 99239; G0378; J0780; J1885; J2470; J7620

== ENCOUNTER 2025-02-12 09:23 | Outpatient (CLI) | payer MEDICARE, MEDICAID, SELFPAY ==
[2025-02-12 12:38] LABS: Abs Immature Grans 0.04 10^3/uL (0.0-0.06); HCT 35.2 % (36.0-46.0); HGB 10.2 g/dL (11.2-15.7); Immature Grans % 0.5 %; MCH 21.6 pg (27.0-33.0); MCHC 29.0 % (32.0-36.0); MCV 75 fL (80-95); MPV 9.6 fL (8.0-11.0); Platelet Count 451 10^3/uL (130-400); RBC 4.72 10^6/uL (3.93-5.22); RDW 24.1 % (11.7-14.6); RDW-SD 57.7 fL; WBC 7.64 10^3/uL (4.4-10.8)
[2025-02-12 12:53] LABS: ALT 174 U/L (14-59); AST 121 U/L (15-37); Albumin 2.9 g/dL (3.4-5.0); Alkaline Phosphatase 95 U/L (46-116); Bilirubin, Direct 0.4 mg/dL (0.0-0.2); Bilirubin, Total 1.2 mg/dL (0.2-1.0); Lipase 53 U/L (<78); Total Protein 7.9 g/dL (6.4-8.2)
[2025-02-12 13:09] LABS: Anisocytosis 2+; Hypochromasia 1+; Microcytosis 1+
== END 2025-02-12 09:24 | disposition home or self-care (01) ==
PROVIDERS: PCP Family Medicine; Referring Provider Family Medicine; Visit Provider Family Medicine
DX: G72.89 Other specified myopathies (principal); R10.9 Unspecified abdominal pain; D64.9 Anemia, unspecified
CPT/HCPCS: 36415; 80076; 83690; 85025

== ENCOUNTER 2025-03-06 15:17 | Outpatient (REF) | payer MEDICARE, MEDICAID, SELFPAY | END 2025-03-06 15:18 | disposition home or self-care (01) | LOC: LBN 15:17 | PROVIDERS: PCP Family Medicine; Visit Provider Family Medicine | DX: T14.8XXA Other injury of unspecified body region, initial encounter (principal); T87.89 Other complications of amputation stump; R50.9 Fever, unspecified | CPT/HCPCS: 87070; 87205 ==

== ENCOUNTER 2025-04-15 12:04 | Emergency (ER) | payer MEDICARE, MEDICAID, SELFPAY ==
--- NOTE | 2025-04-15 12:00 | RT.EKG_ITS ---
APPROVED REPORT Exam: Resting ECG Reason for Exam: SOB Patient Location: E HR:84 bpm ECG Measurements Heart Rate 84 AXIS SD 176 P 71 QRSd 106 QRS 76 QT 387 T 47 QTc 457 Conclusion Sinus rhythm...normal P axis, V-rate 60- 99 Probable lateral infarct, old...Q>35mS, abnormal ST-T, V5-6 I aVL No Occlusion AR
[2025-04-15 12:06] VITALS: BP 144/81; PULSE 87; RESP 24; TEMP 36.6; O2SAT 88
--- NOTE | 2025-04-15 12:30 | DI.RAD_ITS ---
Exam(s) XR CHEST 2V PA LATERAL EXAM: XR CHEST 2V PA LATERAL CLINICAL HISTORY: sob TECHNIQUE: 2D digital imaging was performed of the chest. Two images were obtained. AP and lateral views were obtained. COMPARISON: CR XR CHEST 2V PA LATERAL from 11/28/2024 CR XR PORTABLE CHEST AP from 02/01/2025 FINDINGS: MEDIASTINUM: Normal. HEART: Cardiomegaly. PULMONARY VASCULATURE: There is pulmonary venous congestion. LUNGS: Increased interstitial markings are seen in the lungs particularly the lower lobes. There are no focal consolidating infiltrates present. PLEURAL SPACE: No pleural effusion or pneumothorax. BONE:Within normal limits for the patient's age. OTHER FINDINGS:Normal. IMPRESSION: 1. Cardiomegaly and pulmonary venous congestion suggesting fluid overload. 2. Increased interstitial markings in the lungs suspicious for pulmonary edema. Interstitial pneumonia cannot be entirely excluded. 3. No focal consolidating infiltrates are seen. DATA REPOSITORY: RADIATION DOSE DELIVERED:
[2025-04-15 13:05] LABS: BE (Venous) 9 mmol/L (-2-3); HCO3 (Venous) 33 mmol/L (23-28); O2 Sat (Venous) 80 %; TCO2 (Venous) 30 mmol/L (24-29); pCO2 (Venous) 48 mmHg (41-51); pO2 (Venous) 43 mmHg
[2025-04-15 13:09] LABS: Abs Immature Grans 0.03 10^3/uL (0.0-0.06); HCT 39.4 % (36.0-46.0); HGB 12.1 g/dL (11.2-15.7); Immature Grans % 0.4 %; MCH 22.9 pg (27.0-33.0); MCHC 30.7 % (32.0-36.0); MCV 75 fL (80-95); MPV 10.0 fL (8.0-11.0); Platelet Count 428 10^3/uL (130-400); RBC 5.29 10^6/uL (3.93-5.22); RDW 21.2 % (11.7-14.6); RDW-SD 55.7 fL; WBC 8.39 10^3/uL (4.4-10.8)
[2025-04-15 13:11] VITALS: BP 144/81; PULSE 87; RESP 24; TEMP 36.6; O2SAT 91
[2025-04-15] MEDS: methylPREDNISolone SUCC 125 MG VIAL 80 MG IVP (13:11)
[2025-04-15] MEDS: Albuterol/Ipratropium 3 ML UPD VIAL 6 ML UPD (13:11)
[2025-04-15 13:32] LABS: ALT 172 U/L (14-59); AST 103 U/L (15-37); Albumin 2.8 g/dL (3.4-5.0); Alkaline Phosphatase 78 U/L (46-116); Anion Gap 5.6 mmol/L (3-11); BUN 11 mg/dL (7-18); Bilirubin, Total 0.9 mg/dL (0.2-1.0); CO2 34.4 mmol/L (21.0-32.0); Calcium 9.5 mg/dL (8.5-10.1); Chloride 99 mmol/L (98-107); Estimated GFR 80.21 (mL/min/1.73m2); Glucose 116 mg/dL (74-106); NT-proBNP 115 pg/mL (<300); Potassium 3.1 mmol/L (3.5-5.1); Sodium 139 mmol/L (136-145); Total Protein 7.9 g/dL (6.4-8.2); Troponin I 8 ng/L (<or=51)
[2025-04-15 13:33] LABS: Anisocytosis 2+; Microcytosis 1+
[2025-04-15 14:07] LABS: COVID-19 PCR Negative (Negative); RSV PCR Negative (Negative)
[2025-04-15] MEDS: Albuterol/Ipratropium 3 ML UPD VIAL UPD (14:39)
[2025-04-15 15:14] VITALS: BP 101/67; PULSE 87; O2SAT 92
--- NOTE | 2025-04-15 15:39 | ED.GENADUL_ITS ---
Discharge Plan Disposition Patient Disposition: Home Discharge Details Clinical Impression: Bronchitis, CHF (congestive heart failure) Primary Care Provider: Alphonso Murphy ED Provider: Jackie Scott Home Meds and New Rx's Prescriptions: New doxycycline hyclate 100 mg capsule 100 mg PO BID Qty: 10 0RF prednisone 20 mg tablet 40 mg PO DAILY Qty: 10 0RF Continued albuterol sulfate 90 mcg/actuation HFA aerosol inhaler 1 - 2 puff Inhalation Q6H PRN Qty: 1 11RF fluticasone propionate [Flonase Allergy Relief] 50 mcg/actuation spray,suspension 1 spray NS DAILY Qty: 1 8RF potassium chloride [Klor-Con M20] 20 mEq tablet,ER particles/crystals 20 meq PO DAILY Qty: 90 3RF alclometasone 0.05 % cream 1 applic topical BID PRN (Reason: itching) Qty: 45 1RF gabapentin 300 mg capsule 600 mg PO TID PRN levothyroxine 200 mcg tablet 200 mcg PO DAILY Qty: 90 3RF furosemide 80 mg tablet 80 mg PO BID@0830,1600 Qty: 180 3RF ascorbic acid (vitamin C) 1,000 MG tablet 1,000 mg PO DAILY BiPAP Inhalation Gas 5 l IN DIRECTED Rx Instructions: sleep apnea ([facility] sleep lab 2012) uses with oxygen betamethasone, augmented 0.05 % lotion 1 applic topical BID PRN (Reason: allergic reaction) Qty: 60 2RF oxygen Inhalation 3 l Intranasal DIRECTED Patient Comments: Continuous and uses with bipap Rx Instructions: 3L/NC continuous pantoprazole 20 mg tablet,delayed release (DR/EC) 20 mg PO DAILY Qty: 90 3RF Rx Instructions: 04/13/23 Per GI. -hb sertraline 50 mg tablet 50 mg PO DAILY Qty: 90 3RF metolazone 2.5 mg tablet 2.5 mg PO .q tues/frid Qty: 20 2RF ketoconazole 2 % cream 1 applic topical BID PRN (Reason: facial rash) Qty: 60 1RF Jardiance 10 mg tablet 10 mg PO QAM Qty: 90 3RF torsemide 20 mg tablet 40 mg PO BID Qty: 360 3RF norethindrone acetate [Gallifrey] 5 mg tablet See Rx Instructions .ROUTE .COMPLEX Qty: 180 0RF Dose Instruction: TAKE TWO TABLETS BY MOUTH TWICE A DAY Rx Instructions: TAKE TWO TABLETS BY MOUTH TWICE A DAY lidocaine 5 % gel 1 applic topical DAILY PRN (Reason: dressing changes) Qty: 30 2RF prochlorperazine maleate [Compazine] 5 mg tablet 5 mg PO QID PRNQty: 10 0RF nystatin 100,000 unit/gram powder 1 applic TP BID Qty: 30 5RF BiomePRO 50 billion cell capsule,delayed release(DR/EC) 1 cap PO DAILY Qty: 4 0RF Rx Instructions: Take 3 hours apart form any antibiotics ipratropium-albuterol 0.5 mg-3 mg(2.5 mg base)/3 mL solution for nebulization 3 ml inhalation Q6H PRN (Reason: shortness of breath or wheezing) Qty: 90 0RF spironolactone 25 mg Tablet 25 mg PO DAILY Qty: 30 0RF Discharge Instructions Instructions: Heart Failure, Adult (DC), Acute bronchitis Additional Instructions: Increase your torsemide to 20 mg in the morning and 40 mg at night Take the doxycycline as prescribed and the steroid Use the inhaler 2 puffs every 4 hours Make sure you are drinking regular fluids Follow-up with your doctor in 24 to 48 hours for reassessment Please return with worsening shortness of breath, fever, chills, or should any new concerns arise Referrals: Alphonso Murphy MD [Primary Care Provider, Medicine] Discharge Data Discharge Date/Time-TO BE ENTERED AT DEPARTURE: 04/15/25 16:11 HPI General Date/Time Provider Initiated Documentation: 04/15/25 12:26 . HPI Narrative: This chronically ill 69-year-old female history of COPD CHF oxygen dependency wheelchair dependency pancreatitis chronically elevated LFTs presents with worsening shortness of breath over the past several days. States her grandson is sick with runny nose and upper respiratory symptoms. States she has had some mildly increased work of breathing at home which is why she presents. She is on oxygen at baseline and using her baseline 3 L denies any chest pain or weight gain. States she is on torsemide but having decreased urination intermittently. Denies any significant weight gain or peripheral edema. Related Data Home Medications ?Medication ?Instructions ?Recorded ?Confirmed ascorbic acid (vitamin C) 1,000 mg 1,000 mg PO DAILY 0 11/25/12 04/16/25 tablet Bipap 5 l IN DIRECTED 07/23/14 04/16/25 betamethasone, augmented 0.05 % 1 applic topical BID P RN allergic 06/20/21 04/16/25 lotion reaction #60 mL oxygen 3 l intranasal DIRECTED 0 04/02/24 04/16/25 L. acidophilus,casei,rhamnosus 50 1 cap PO DAILY #4 ca ps 06/04/24 04/16/25 billion cell capsule,delayed release (BiomePRO) nystatin 100,000 unit/gram topical 1 applic topical BI D intertrigo 06/04/24 04/16/25 powder #30 grams albuterol sulfate 90 mcg/actuation 1 - 2 puff inhalati on Q6H PRN ##1 07/17/24 04/16/25 aerosol inhaler fluticasone propionate 50 1 spray NS DAILY ##1 4 04/16/25 mcg/actuation nasal spray,suspension (Flonase Allergy Relief) potassium chloride 20 mEq 20 meq PO DAILY #90 tabs 11/0504/16/25 tablet,extended release(part/cryst) (Klor-Con M) pantoprazole 20 mg tablet,delayed 20 mg PO DAILY #90 t abs 07/26/24 04/16/25 release sertraline 50 mg tablet 50 mg PO DAILY #90 tabs 07/1504/16/25 gabapentin 300 mg capsule 600 mg PO TID PRN 10/11/24 0 04/16/25 ipratropium 0.5 mg-albuterol 3 mg 3 ml inhalation Q6H PRN shortness 11/19/24 04/16/25 (2.5 mg base)/3 mL nebulization of breath or wheezing #90 mL soln alclometasone 0.05 % topical cream 1 applic topical BI D PRN itching 11/20/2410/09 #45 grams spironolactone 25 mg tablet 25 mg PO DAILY #30 tabs 04/16/25 metolazone 2.5 mg tablet 2.5 mg PO .q tues/frid #20 t abs 12/08/24 04/16/25 ketoconazole 2 % topical cream 1 applic topical BID MD N facial 12/19/24 04/16/25 rash #60 grams levothyroxine 200 mcg tablet 200 mcg PO DAILY #90 tabs 01/10/25 04/16/25 empagliflozin 10 mg tablet 10 mg PO QAM #90 tabs 02/0204/16/25 (Jardiance) prochlorperazine maleate 5 mg 5 mg PO QID PRN #10 tabs 02/07/25 04/16/25 tablet (Compazine) furosemide 80 mg tablet 80 mg PO BID@0830,1600 #180 tabs 02/12/25 04/16/25 torsemide 20 mg tablet 40 mg (2 x 20 mg) PO BID #36 0 tabs 04/08/25 04/16/25 lidocaine 5 % topical gel 1 applic topical DAILY PRN 0 04/11/25 04/16/25 dressing changes #30 grams norethindrone acetate 5 mg tablet See Rx Instructions .Route 04/11/25 04/16/25 (Gallifrey) .COMPLEX #180 tabs doxycycline hyclate 100 mg capsule 100 mg PO BID #10 c aps 04/15/25 04/16/25 prednisone 20 mg tablet 40 mg (2 x 20 mg) PO DAILY # 10 tabs 04/15/25 04/16/25 Previous Rx's ?Medication ?Instructions ?Recorded betamethasone, augmented 0.05 % 1 applic topical BID P RN allergic 06/20/21 lotion reaction #60 mL L. acidophilus,casei,rhamnosus 50 1 cap PO DAILY #4 ca ps 06/04/24 billion cell capsule,delayed release (BiomePRO) nystatin 100,000 unit/gram topical 1 applic topical BI D intertrigo 06/04/24 powder #30 grams albuterol sulfate 90 mcg/actuation 1 - 2 puff inhalati on Q6H PRN ##1 07/17/24 aerosol inhaler fluticasone propionate 50 1 spray NS DAILY ##1 4 mcg/actuation nasal spray,suspension (Flonase Allergy Relief) potassium chloride 20 mEq 20 meq PO DAILY #90 tabs 11/05 tablet,extended release(part/cryst) (Klor-Con M) pantoprazole 20 mg tablet,delayed 20 mg PO DAILY #90 t abs 07/26/24 release sertraline 50 mg tablet 50 mg PO DAILY #90 tabs 07/15 10/08 ipratropium 0.5 mg-albuterol 3 mg 3 ml inhalation Q6H PRN shortness 11/19/24 (2.5 mg base)/3 mL nebulization of breath or wheezing #90 mL soln alclometasone 0.05 % topical cream 1 applic topical BI D PRN itching 11/20/24 #45 grams spironolactone 25 mg tablet 25 mg PO DAILY #30 tabs metolazone 2.5 mg tablet 2.5 mg PO .q tues/frid #20 t abs 12/08/24 ketoconazole 2 % topical cream 1 applic topical BID MD N facial 12/19/24 rash #60 grams levothyroxine 200 mcg tablet 200 mcg PO DAILY #90 tabs 01/10/25 empagliflozin 10 mg tablet 10 mg PO QAM #90 tabs 02/02 (Jardiance) prochlorperazine maleate 5 mg 5 mg PO QID PRN #10 tabs 02/07/25 tablet (Compazine) furosemide 80 mg tablet 80 mg PO BID@0830,1600 #180 tabs 02/12/25 torsemide 20 mg tablet 40 mg (2 x 20 mg) PO BID #36 0 tabs 04/08/25 lidocaine 5 % topical gel 1 applic topical DAILY PRN 0 04/11/25 dressing changes #30 grams norethindrone acetate 5 mg tablet See Rx Instructions .Route 04/11/25 (Gallifrey) .COMPLEX #180 tabs doxycycline hyclate 100 mg capsule 100 mg PO BID #10 c aps 04/15/25 prednisone 20 mg tablet 40 mg (2 x 20 mg) PO DAILY # 10 tabs 04/15/25 Allergies Allergy/AdvReac Type Severity Reaction Status Date / Time hydrocodone Allergy Severe ITCHING Verified 04/15/25 12:13 morphine Allergy Mild PRURITIS Verified 04/15/25 12:13 oxycodone Allergy Mild ITCHING Verified 04/15/25 12:13 General Stated Complaint: RespSymp REUBEN: 3 Exam Narrative Exam Narrative: Patient appears chronically ill although at her baseline respiratory status she does have wheezes throughout initially and is in mild respiratory distress she has sinus tachycardia she has 1+ edema to her right lower extremity she is alert and oriented x 4 and speaking in complete sentences Course Vital Signs Vital signs: Vital Signs Temperature 36.6 C 04/15/25 12:06 Pulse 87 04/15/25 12:06 Respiratory Rate 24 04/15/25 12:06 Blood Pressure 144/81 H 04/15/25 12:06 Pulse Oximetry 88 L 04/15/25 12:06 Temperature 36.6 C 04/15/25 13:11 Pulse 87 04/15/25 15:14 Respiratory Rate 24 04/15/25 13:11 Respiratory Effort Short of Breath 04/15/25 13:11 Respiratory Depth Shallow 04/15/25 13:11 Blood Pressure 101/67 04/15/25 15:14 Blood Pressure Mean 78 04/15/25 15:14 Blood Pressure Position Sitting 04/15/25 13:11 Pulse Oximetry 92 04/15/25 15:14 Oxygen Delivery Method Nasal Cannula 04/15/25 15:14 Oxygen Flow Rate 3 04/15/25 15:14 Comment patient state her oxygen level is usually between 88-91 on 3L 04/15/25 13:11 Lab/Test Results Lab/Test Results: Laboratory Tests Range/Units 04/15/25 04/15/25 13:01 13:25 WBC (4.4-10.8) 10^3/uL 8.39 RBC (3.93-5.22) 10^6/uL 5.29 H Hgb (11.2-15.7) g/dL 12.1 Hct (36.0-46.0) % 39.4 MCV (80-95) fL 75 L MCH (27.0-33.0) pg 22.9 L MCHC (32.0-36.0) % 30.7 L RDW (11.7-14.6) % 21.2 H Plt Count (130-400) 10^3/uL 428 H MPV (8.0-11.0) fL 10.0 Immature Gran % % 0.4 Neutrophils % % 69.9 Lymphocytes % % 17.6 Monocytes % % 8.3 Eosinophils % % 3.3 Basophils % % 0.5 Nucleated RBC % (0.0-0.3) % 0.0 Absolute Neutrophils (1.2-6.7) 10^3/uL 5.86 Absolute Lymphocytes (1.2-3.4) 10^3/uL 1.48 Absolute Monocytes (0.1-0.8) 10^3/uL 0.70 Absolute Eosinophils (0.0-0.7) 10^3/uL 0.28 Absolute Basophils (0.0-0.2) 10^3/uL 0.04 RBC Morphology See Below Anisocytosis 2+ Microcytosis 1+ VBG pH (7.31-7.41) 7.45 H VBG pCO2 (41-51) mmHg 48 VBG pO2 mmHg 43 VBG HCO3 (23-28) mmol/L 33 H VBG Total CO2 (24-29) mmol/L 30 H VBG O2 Saturation % 80 VBG Base Excess (-2-3) mmol/L 9 H Sodium (136-145) mmol/L 139 Potassium (3.5-5.1) mmol/L 3.1 L Chloride (98-107) mmol/L 99 Carbon Dioxide (21.0-32.0) mmol/L 34.4 H Anion Gap (3-11) mmol/L 5.6 BUN (7-18) mg/dL 11 Creatinine (0.55-1.02) mg/dL 0.8 Est GFR (CKD-EPI 2020) (mL/min/1.73m2) 80.21 Glucose (74-106) mg/dL 116 H Calcium (8.5-10.1) mg/dL 9.5 Total Bilirubin (0.2-1.0) mg/dL 0.9 AST (15-37) U/L 103 H ALT (14-59) U/L 172 H Alkaline Phosphatase (46-116) U/L 78 Troponin I (<or=51) ng/L 8 NT-Pro-B Natriuret Pep (<300) pg/mL 115 Total Protein (6.4-8.2) g/dL 7.9 Albumin (3.4-5.0) g/dL 2.8 L COVID-19 Source Nasopharynx SARS-CoV-2 (PCR) (Negative) Negative Influenza Type A (PCR) (Negative) Negative Influenza Type B (PCR) (Negative) Negative RSV (PCR) (Negative) Negative Medical Decision Making Results: Evidence of vascular congestion on chest x-ray, this is a similar exam to old of her prior chest x-rays when compared her EKG is nonischemic she has 2 negative troponin levels LFTs are baseline for her at 100 and 116 for AST and ALT consecutively mildly hypokalemic at 3.1 given 40 mEq of potassium VBG's are reassuring when compared to prior RSV flu and COVID-negative Assessment and plan: Patient received 3 DuoNebs and shows marked improvement in aeration. Patient has a longstanding history of CHF and COPD and I asked her what how she felt in terms of her respiratory status she states she feels safe and would like to be discharged home. I do not think this is unreasonable her oxygen is baseline for her and she does have oxygen at home. She will return should her symptoms worsen we had a long discussion regarding discharge versus admission. She does agree to take prednisone and we will give short course of doxycycline for COPD. There may also be a component of CHF as she just had sev eral days in the past week where she is not urinated much. I will increase her torsemide to 40 mg at night and 20 mg during the day. She will need recheck in the next 48 hours and she is given low threshold to return should she have worsening shortness of breath, fever chills, chest pain or should any new concerns arise. Quality:SDOH Health Related Social Needs: Health related social needs material hardship Health related social needs details Pt refuses to answ er questions PFSH All Active Problems (Updated 04/15/25 @ 15:42 by INESSA Galicia) CHF (congestive heart failure) (Chronic) Bronchitis (Acute) Laceration of left upper extremity (Acute) Discharge planning issues (Acute) Abnormal transaminases (Acute) Pancreatitis (Chronic) Acute biliary pancreatitis (Acute) Laceration of left forearm (Acute) Anemia (Chronic) COPD exacerbation (Acute) Electrolyte disturbance (Acute) Acute on chronic hypoxic respiratory failure (Acute) Left above-knee amputee (Acute) Advanced care planning/counseling discussion (Acute) Elevated liver enzymes (Acute) Exertional shortness of breath (Acute) Heart failure with preserved ejection fraction (Acute) Wound dehiscence (Acute) Thickened endometrium (Acute) Postmenopausal bleeding (Acute) Venous stasis dermatitis (Acute) Chronic headaches (Chronic) Recent Neurology consult for possible papilledema. Urinary incontinence (Chronic) On Detrol Recurrent UTI (Chronic) Right ventricular dysfunction (Chronic) Knee pain, bilateral (Chronic 07/23/14) s/p bilat TKR (left infected with mult surg and decreased mobility) Morbid obesity (Acute 04/05/13) Sensorineural hearing loss, bilateral (Chronic 08/29/13) Advance directive on file (Acute) Low back pain with sciatica (Chronic 05/03/14) [place] at [facility] [place] L34 spinal stenosis Varicose veins of lower extremity (Chronic) Depression (Chronic) Grief at loss of child (Acute) Mixed conductive and sensorineural hearing loss of both ears (Acute) Right carpal tunnel syndrome (Acute) Arthritis of right hand (Acute) Impingement of right ulnar nerve (Acute) Dermoid cyst of neck (Acute) Microcalcifications of the breast (Acute) Neuropathy of left hand (Acute) Neuropathy of right hand (Acute) Bilateral carpal tunnel syndrome (Acute) Medical History Palliative care patient CHF (congestive heart failure) Atrial fibrillation COPD (chronic obstructive pulmonary disease) Hx pulmonary embolism (~2015) treated with lovenox x 3 months GERD (gastroesophageal reflux disease) had negative barium esophagram in 11/2022. Anxiety Lymphedema Hypothyroidism DAVID (obstructive sleep apnea) on BiPap Chronic respiratory failure with hypoxia and hypercapnia home BiPap Surgical History S/P AKA (above knee amputation) (~09/2024) Status post thyroidectomy History of fasciotomy Replacement of total knee joint Bilateral; left-became [id number] surgeries Fasciotomy, Foot (~1996) LEFT History of Surgical Procedure a. Right and left toal knee replacements. b. Left knee has been repeatedly operated on with slava surgies, three replacements. Family History Mother Diabetes Personal history of malignant neoplasm LUNG Father Personal history of malignant neoplasm BRAIN Grandfather No problems noted. Grandfather No problems noted. Grandmother No problems noted. Grandmother No problems noted. Social History (Updated 11/28/24 @ 21:52 by Brandan Hicks) Smoking/Tobacco Use Status: Former Tobacco Use tobacco type: cigarettes Quit Date: 01/21/21 Second Hand Exposure: Yes Smoking risk assessment performed?: Yes Alcohol Intake: never Drug use: Never Substance use type: does not use Counseling given: No Housing: apartment Communication Needs: Hard of Hearing and Corrective Lenses Pets and animals: Yes Pets and animals: cat(s) Sexually active: Yes Current gender identity: female What is your relationship status?: never How often do you talk on the phone with friends or family?: decline to answer How often do you get together with friends or relatives?: decline to answer How often do you attend advent or latter day services?: decline to answer Do you belong to any clubs or organized social groups?: no Panel score (0-1 are the most socially isolated patients): 0 Seatbelt use: never Do you feel safe at home: Yes Do you feel safe in your relationship?: Yes Additional Social history: Lives in her own apartment in [facility], uses electric scooter
[2025-04-15 15:41] LABS: Troponin I 7 ng/L (<or=51)
[2025-04-15 16:10] VITALS: BP 128/80; PULSE 89; RESP 16; O2SAT 93
[2025-04-15] MEDS: Albuterol HFA 8 GM 60 PUFF INH IH (16:10)
[2025-04-15] MEDS: Potassium Chloride 20 MEQ TABCR 40 MEQ PO (16:10)
== END 2025-04-15 16:11 | disposition home or self-care (01) ==
PROVIDERS: Emergency Provider Physician Assistant; PCP Family Medicine
DX: J40 Bronchitis, not specified as acute or chronic (principal); I50.9 Heart failure, unspecified; Z99.81 Dependence on supplemental oxygen; Z99.3 Dependence on wheelchair; Z59.87 Material hardship due to limited financial resources, not elsewhere classified
CPT/HCPCS: 99284 ×2; 96374; 94640; 36415; 80053; 82805; 87637; 93005; 71046; 83880; 84484; 85025; 93010; J2919; J3490; J7620

== ENCOUNTER 2025-04-17 12:12 | Inpatient (IN) | payer MEDICARE, MEDICAID, SELFPAY ==
[2025-04-17] VITALS (32 sets, daily range): BP systolic 105–167; BP diastolic 49–81; PULSE 87–104; RESP 18–30; TEMP 36.8–37.1; O2SAT 90–98
--- NOTE | 2025-04-17 12:00 | RT.EKG_ITS ---
APPROVED REPORT Exam: Resting ECG Reason for Exam: sob Patient Location: E HR:103 bpm ECG Measurements Heart Rate 103 AXIS UT 151 P 64 QRSd 94 QRS 53 QT 377 T -29 QTc 490 Conclusion Sinus tachycardia...rate> 99 Atrial premature complexes...SV complexes w/ short R-R intvls Nonspecific T abnormalities, inferior leads...T <-0.10mV, II III aVF No Occlusion IN. More prominent T wave inversions in 3 and aVF.
[2025-04-17] MEDS: Albuterol/Ipratropium 3 ML UPD VIAL UPD ×5 (12:36→22:00)
[2025-04-17 12:53] LABS: BE (Venous) 14 mmol/L (-2-3); HCO3 (Venous) 37 mmol/L (23-28); O2 Sat (Venous) 94 %; TCO2 (Venous) 33 mmol/L (24-29); pCO2 (Venous) 46 mmHg (41-51); pO2 (Venous) 62 mmHg
[2025-04-17 12:55] LABS: Abs Immature Grans 0.06 10^3/uL (0.0-0.06); HCT 40.4 % (36.0-46.0); HGB 12.7 g/dL (11.2-15.7); Immature Grans % 0.4 %; MCH 23.4 pg (27.0-33.0); MCHC 31.4 % (32.0-36.0); MCV 74 fL (80-95); MPV 9.8 fL (8.0-11.0); Platelet Count 440 10^3/uL (130-400); RBC 5.43 10^6/uL (3.93-5.22); RDW 21.2 % (11.7-14.6); RDW-SD 56.1 fL; WBC 15.41 10^3/uL (4.4-10.8)
--- NOTE | 2025-04-17 13:00 | DI.RAD_ITS ---
Exam(s) XR PORTABLE CHEST AP EXAM: XR PORTABLE CHEST AP CLINICAL HISTORY: dyspnea TECHNIQUE: 2D digital imaging was performed of the chest. One image was obtained. An AP view was obtained. COMPARISON: CR XR PORTABLE CHEST AP from 02/01/2025 CR XR CHEST 2V PA LATERAL from 04/15/2025 FINDINGS: MEDIASTINUM: Normal. HEART: The heart is at the upper limits of normal in size. PULMONARY VASCULATURE: There is pulmonary venous congestion. LUNGS: Mild diffuse interstitial prominence is present. There are no focal consolidating infiltrates. This may represent pulmonary edema. PLEURAL SPACE: No pleural effusion or pneumothorax. BONE:Within normal limits for the patient's age. OTHER FINDINGS:Normal. IMPRESSION: 1. Pulmonary venous congestion. 2. Diffuse prominence of the interstitium suggesting interstitial edema. Interstitial pneumonia cannot be excluded. DATA REPOSITORY: RADIATION DOSE DELIVERED:
[2025-04-17] MEDS: Furosemide 40 MG/4 ML VIAL IVP (13:03)
[2025-04-17] MEDS: methylPREDNISolone SUCC 125 MG VIAL 80 MG IVP ×2 (13:03→20:45)
[2025-04-17 13:12] LABS: Anisocytosis 1+; Hypochromasia 1+; Microcytosis 2+
[2025-04-17 13:17] LABS: ALT 256 U/L (14-59); AST 159 U/L (15-37); Albumin 2.9 g/dL (3.4-5.0); Alkaline Phosphatase 84 U/L (46-116); Anion Gap 3.2 mmol/L (3-11); BUN 11 mg/dL (7-18); Bilirubin, Total 0.7 mg/dL (0.2-1.0); CO2 37.8 mmol/L (21.0-32.0); Calcium 7.4 mg/dL (8.5-10.1); Chloride 97 mmol/L (98-107); Estimated GFR 80.21 (mL/min/1.73m2); Glucose 101 mg/dL (74-106); Magnesium 1.4 mg/dL (1.8-2.4); Potassium 3.1 mmol/L (3.5-5.1); Sodium 138 mmol/L (136-145); Total Protein 8.2 g/dL (6.4-8.2); Troponin I 10 ng/L (<or=51)
[2025-04-17 13:21] LABS: NT-proBNP 201 pg/mL (<300)
--- NOTE | 2025-04-17 14:14 | W.PM.HP.N ---
Date of service: 04/17/25 Time of Service: 14:14 Assessment and Plan Assessment and plan (1) Sepsis: Status: Resolved Assessment and plan: WBC 15.41 with tachycardia HR up to 104, tachypnea RR 26 -Source respiratory Blood Cx pending As per point 2 (2) Acute interstitial pneumonia: Status: Acute Assessment and plan: As per imaging Might be the etiology of point 2 with sick contact as per HPI but URV panel is negative On ceftriaxone and doxycycline Mucinex, pulmonary toilet, scheduled and PRN nebs (3) COPD exacerbation: Status: Acute Assessment and plan: In the setting of PNA IV methylprednisolone today then oral prednisone in AM No retention on VBG - showing metabolic alkalosis Improving symptoms with BIPAP with 28% Oxygen - no hypoxia (4) Hypomagnesemia: Status: Acute Assessment and plan: Supplemented Mg in AM (5) Hypokalemia: Status: Acute Assessment and plan: Supplemented CMP in AM (6) Respiratory failure: Status: Acute Assessment and plan: No hypoxia but increased pressure on BIPAP (7) CHF (congestive heart failure): Status: Chronic Assessment and plan: BNP is normal, no crackles , no worsening LE edema but has bilat exp wheezing On home regimen Increased torsemide on Tuesday - will give IV lasix while in patient (8) Bronchitis: Status: Acute Assessment and plan: Seen in the ED on 04/15 and sent home on oral antibiotics and steroids (9) Left above-knee amputee: Status: Acute Assessment and plan: Wound care as per HH nursing -mepilex on distal AKA site (10) Elevated liver enzymes: Status: Acute Assessment and plan: Up trend - will continue to monitor R sided ABD pain palpation Lipase pending considering imaging in AM if no improvement / previous findings on 02/07/25: gallbladder is distended measuring 5 cm in diameter. (11) Heart failure with preserved ejection fraction: Status: Acute Assessment and plan: On home regimen IV diuretic while inpatient as dosing was increased on Tuesday (12) Postmenopausal bleeding: Status: Acute Assessment and plan: Continue home medicine regimen (13) Atrial fibrillation: Assessment and plan: Hx of - SR at this time (14) Discharge planning issues: Status: Acute Assessment and plan: Home with Discussed with Dr. Cesar History of Present Illness History of Present Illness Chief Complaint: Shortness of breath, chills Narrative: This 69 years old morbidly obese female patient with a past medical history significant for COPD, HFpEF , atrial fibrillation, chronic respiratory failure on 3 L of oxygen at baseline presented to the ED at [facility] today for evaluation of worsening shortness of breath after being seen on 04/15/2025 in the ED and discharged home on increased dose of torsemide. Patient reporting increased cough and sputum production and reports of midsternal chest pain with cough. Sick contact: Granddaughter at home with runny nose and cough over the last week and now reporting having runny nose and congestion as well. The patient reports chills without objective fevers and denies dizziness, change in vision, nausea, vomiting, diarrhea or dysuria. No exacerbation in bilateral lower extremity edema. On presentation to the emergency room the patient was tachycardic tachypneic not hypoxic and normotensive. Workup in the ED was positive for leukocytosis, hypokalemia hypocalcemia , mild transaminitis and hypomagnesemia at 1.6. Chest x-ray was suspicious for interstitial pneumonia versus pulmonary edema In the ED the patient received nebulizer treatments, IV methylprednisolone and IV ceftriaxone and doxycycline as well as IV electrolyte supplementation. Ongoing BiPAP initiated in the ED. The patient was admitted to the medical floor by the hospitalist team for evaluation management of sepsis, in the setting of pneumonia and COPD exacerbation as well as fluid overload hypokalemia, hypomagnesemia. The patient confirmed her full CODE STATUS. Review of Systems All systems reviewed & are unremarkable except as noted in HPI and below PFSH All Active Problems (Updated 04/17/25 @ 17:41 by Zoila De La Garza APRN) Acute interstitial pneumonia (Acute) Hypomagnesemia (Acute) Hypokalemia (Acute) Hypercalcemia (Acute) COPD (chronic obstructive pulmonary disease) (Chronic) Respiratory failure (Acute) CHF (congestive heart failure) (Chronic) Bronchitis (Acute) Laceration of left upper extremity (Acute) Discharge planning issues (Acute) Abnormal transaminases (Acute) Pancreatitis (Chronic) Acute biliary pancreatitis (Acute) Laceration of left forearm (Acute) Anemia (Chronic) COPD exacerbation (Acute) Electrolyte disturbance (Acute) Acute on chronic hypoxic respiratory failure (Acute) Left above-knee amputee (Acute) Advanced care planning/counseling discussion (Acute) Elevated liver enzymes (Acute) Exertional shortness of breath (Acute) Heart failure with preserved ejection fraction (Acute) Wound dehiscence (Acute) Thickened endometrium (Acute) Postmenopausal bleeding (Acute) Venous stasis dermatitis (Acute) Chronic headaches (Chronic) Recent Neurology consult for possible papilledema. Urinary incontinence (Chronic) On Detrol Recurrent UTI (Chronic) Right ventricular dysfunction (Chronic) Knee pain, bilateral (Chronic 07/23/14) s/p bilat TKR (left infected with mult surg and decreased mobility) Morbid obesity (Acute 04/05/13) Sensorineural hearing loss, bilateral (Chronic 08/29/13) Advance directive on file (Acute) Low back pain with sciatica (Chronic 05/03/14) CT at [facility] L34 spinal stenosis Varicose veins of lower extremity (Chronic) Depression (Chronic) Grief at loss of child (Acute) Mixed conductive and sensorineural hearing loss of both ears (Acute) Right carpal tunnel syndrome (Acute) Arthritis of right hand (Acute) Impingement of right ulnar nerve (Acute) Dermoid cyst of neck (Acute) Microcalcifications of the breast (Acute) Neuropathy of left hand (Acute) Neuropathy of right hand (Acute) Bilateral carpal tunnel syndrome (Acute) Medical History Palliative care patient CHF (congestive heart failure) Atrial fibrillation COPD (chronic obstructive pulmonary disease) Hx pulmonary embolism (~2015) treated with lovenox x 3 months GERD (gastroesophageal reflux disease) had negative barium esophagram in 11/2022. Anxiety Lymphedema Hypothyroidism DAVID (obstructive sleep apnea) on BiPap Chronic respiratory failure with hypoxia and hypercapnia home BiPap Surgical History S/P AKA (above knee amputation) (~09/2024) Status post thyroidectomy History of fasciotomy Replacement of total knee joint Bilateral; left-became [id number] surgeries Fasciotomy, Foot (~1996) LEFT History of Surgical Procedure a. Right and left toal knee replacements. b. Left knee has been repeatedly operated on with slava surgies, three replacements. Family History Mother Diabetes Personal history of malignant neoplasm LUNG Father Personal history of malignant neoplasm BRAIN Grandfather No problems noted. Grandfather No problems noted. Grandmother No problems noted. Grandmother No problems noted. Social History (Updated 11/28/24 @ 21:52 by Brandan Hicks) Smoking/Tobacco Use Status: Former Tobacco Use tobacco type: cigarettes Quit Date: 01/21/21 Second Hand Exposure: Yes Smoking risk assessment performed?: Yes Alcohol Intake: never Drug use: Never Substance use type: does not use Counseling given: No Housing: house Communication Needs: Hard of Hearing and Corrective Lenses Pets and animals: Yes Pets and animals: cat(s) Sexually active: Yes Current gender identity: female What is your relationship status?: never How often do you talk on the phone with friends or family?: decline to answer How often do you get together with friends or relatives?: decline to answer How often do you attend latter day or jewish services?: decline to answer Do you belong to any clubs or organized social groups?: no Panel score (0-1 are the most socially isolated patients): 0 Seatbelt use: never Do you feel safe at home: Yes Do you feel safe in your relationship?: Yes Additional Social history: Lives in her own apartment in [facility], uses [employer] Allergies and Home Medications Allergies Allergy/AdvReac Type Severity Reaction Status Date / Time hydrocodone Allergy Severe ITCHING Verified 04/15/25 12:13 morphine Allergy Mild PRURITIS Verified 04/15/25 12:13 oxycodone Allergy Mild ITCHING Verified 04/15/25 12:13 Home Medications ?Medication ?Instructions ?Recorded ?Confirmed ?Type ascorbic acid (vitamin C) 1,000 mg 1,000 mg PO DAILY 11/25/12 04/17/25 History tablet Bipap 5 l IN DIRECTED 07/23/14 04/17/25 History betamethasone, augmented 0.05 % 1 applic topical BID PRN allergic 06/20/21 04/17/25 Rx lotion reaction #60 mL oxygen 3 l intranasal DIRECTED 04/02/24 04/17/25 History L. acidophilus,casei,rhamnosus 50 1 cap PO DAILY #4 caps 06/04/24 04/17/25 Rx billion cell capsule,delayed release (BiomePRO) nystatin 100,000 unit/gram topical 1 applic topical BID intertrigo 06/04/24 04/17/25 Rx powder #30 grams albuterol sulfate 90 mcg/actuation 1 - 2 puff inhalation Q6H PRN ##1 07/17/24 04/17/25 Rx aerosol inhaler fluticasone propionate 50 1 spray NS DAILY ##1 07/17/24 04/17/25 Rx mcg/actuation nasal spray,suspension (Flonase Allergy Relief) potassium chloride 20 mEq 20 meq PO DAILY #90 tabs 07/17/24 04/17/25 Rx tablet,extended release(part/cryst) (Klor-Con M) pantoprazole 20 mg tablet,delayed 20 mg PO DAILY #90 tabs 07/26/24 04/17/25 Rx release sertraline 50 mg tablet 50 mg PO DAILY #90 tabs 07/26/24 04/17/25 Rx gabapentin 300 mg capsule 600 mg PO TID PRN 10/11/24 04/17/25 History ipratropium 0.5 mg-albuterol 3 mg 3 ml inhalation Q6H PRN shortness 11/19/24 04/17/25 Rx (2.5 mg base)/3 mL nebulization of breath or wheezing #90 mL soln alclometasone 0.05 % topical cream 1 applic topical BID PRN itching 11/20/24 04/17/25 Rx #45 grams spironolactone 25 mg tablet 25 mg PO DAILY #30 tabs 12/02/24 04/17/25 Rx metolazone 2.5 mg tablet 2.5 mg PO .q tues/frid #20 tabs 12/08/24 04/17/25 Rx ketoconazole 2 % topical cream 1 applic topical BID PRN facial 12/19/24 04/17/25 Rx rash #60 grams levothyroxine 200 mcg tablet 200 mcg PO DAILY #90 tabs 01/10/25 04/17/25 Rx empagliflozin 10 mg tablet 10 mg PO QAM #90 tabs 02/02/25 04/17/25 Rx (Jardiance) prochlorperazine maleate 5 mg 5 mg PO QID PRN #10 tabs 02/07/25 04/17/25 Rx tablet (Compazine) furosemide 80 mg tablet 80 mg PO BID@0830,1600 #180 tabs 02/12/25 04/17/25 Rx torsemide 20 mg tablet 40 mg (2 x 20 mg) PO BID #360 tabs 04/08/25 04/17/25 Rx lidocaine 5 % topical gel 1 applic topical DAILY PRN 04/11/25 04/17/25 Rx dressing changes #30 grams norethindrone acetate 5 mg tablet See Rx Instructions .Route 04/11/25 04/17/25 Rx ([place]den) .COMPLEX #180 tabs doxycycline hyclate 100 mg capsule 100 mg PO BID #10 caps 04/15/25 04/17/25 Rx prednisone 20 mg tablet 40 mg (2 x 20 mg) PO DAILY #10 tabs 04/15/25 04/17/25 Rx Exam Narrative Exam Narrative: Constitutional Morbidly obese patient 69 yo female s/p left AKA with Mepilex on chronic lesion, in no acute distress, alert and oriented X4 no neurological focal deficit, no JVD, bilateral expiratory wheezing, no crackles distant cardiac sounds S1-S2 regular, bilateral radial and right dorsalis pedis pulses are positive, bilateral lower extremity edema with left AKA with dressing dry clean and intact changed today by home health Abdomen is large, not distended, soft and tender to right lower- mid quadrant, bowel sounds are present,moves all 4 extremities , RASS 0, congruent mood and normal affect. Results Labs 04/17/25 12:45 04/17/25 12:45 Labs: Laboratory Results - last 24 hr 04/17/25 04/17/25 12:37 12:45 WBC 15.41 H RBC 5.43 H Hgb 12.7 Hct 40.4 MCV 74 L MCH 23.4 L MCHC 31.4 L RDW 21.2 H Plt Count 440 H MPV 9.8 Immature Gran % 0.4 Neutrophils % 74.8 Lymphocytes % 13.3 Monocytes % 10.4 Eosinophils % 0.7 Basophils % 0.4 Nucleated RBC % 0.0 Absolute Neutrophils 11.53 H Absolute Lymphocytes 2.05 Absolute Monocytes 1.60 H Absolute Eosinophils 0.11 Absolute Basophils 0.06 RBC Morphology See Below Hypochromasia 1+ Anisocytosis 1+ Microcytosis 2+ VBG pH Cancelled 7.51 H VBG pCO2 Cancelled 46 VBG pO2 Cancelled 62 VBG HCO3 Cancelled 37 H VBG Total CO2 Cancelled 33 H VBG O2 Saturation Cancelled 94 VBG Base Excess Cancelled 14 H Sodium 138 Potassium 3.1 L Chloride 97 L Carbon Dioxide 37.8 H Anion Gap 3.2 BUN 11 Creatinine 0.8 Est GFR (CKD-EPI 2020) 80.21 Glucose 101 Calcium 7.4 L Magnesium 1.4 L Total Bilirubin 0.7 AST 159 H ALT 256 H Alkaline Phosphatase 84 Troponin I 10 NT-Pro-B Natriuret Pep 201 Total Protein 8.2 Albumin 2.9 L Last Vital Signs Temp 37.1 C 04/17/25 12:51 Pulse 91 H 04/17/25 13:50 Resp 21 04/17/25 13:50 BP 129/66 04/17/25 13:46 Pulse Ox 95 04/17/25 13:50 PAWSS Have you Been Recently Intoxicated or Drunk Within the Last 30 days?: No Have you Ever Experienced Previous Episodes of Alcohol Withdrawal?: No Have you ever Experienced Withdrawal Seizures?: No Have you ever Experienced Delirium Tremens(DT)s?: No Have you ever undergone Alcohol Rehabilitation Treatment (i.e, inpt ot outpatient treatment programs)?: No Have you ever Experienced Blackouts?: No Have you ever Combined Alcohol with other Downers within the last 90 days?: No Have you ever Combined Alcohol with any other Substance of Abuse during the last 90 days?: No Positive Blood Alcohol level on Presentation? [PCS.BAL]: No Evidence of Increased Autonomic Activity (i.e. HR>120, tremor, sweating, agitation, nausea)?: No Result: 0 Time Spent Time spent with Patient: >75 minutes Time was spent: preparing to see the patient(eg.review tests), obtaining and/or reviewing separately otained hiistory, ordering medications,tests, procedures, referring, communicating with other health career guidance technician, indepentently interpreting results, counseling the patient and care coordination
[2025-04-17] MEDS: Normal Saline 250 ML 125 ML IV (14:16)
[2025-04-17] MEDS: DOXYCYCLINE 100 MG in Normal Saline 100 ML IVPB (14:16)
[2025-04-17] MEDS: MAGNESIUM SULFATE 2 GM/50 ML BAG IV_INF ×2 (14:17→15:59)
[2025-04-17] MEDS: cefTRIAXone 2 GM/50 ML BAG IVPB (14:18)
[2025-04-17] MEDS: POTASSIUM CHLORIDE 20 MEQ/100 ML BAG 50 MEQ IV_INF (14:18)
[2025-04-17 14:28] LABS: Troponin I 10 ng/L (<or=51)
[2025-04-17] MEDS: Calcium Gluconate 4.65 MEQ/10 ML VIAL 4.65 MG IVP (14:47)
[2025-04-17] MEDS: Normal Saline 100 ML (14:47)
--- NOTE | 2025-04-17 14:49 | W.ED.GENAD ---
Discharge Plan Disposition Patient Disposition: Admit to [facility] Condition: Critical Discharge Details Clinical Impression: Respiratory failure, COPD (chronic obstructive pulmonary disease), Hypercalcemia, Hypokalemia, Hypomagnesemia Primary Care Provider: Alphonso Murphy ED Provider: Jackie Scott Home Meds and New Rx's Prescriptions: No Action albuterol sulfate 90 mcg/actuation HFA aerosol inhaler 1 - 2 puff Inhalation Q6H PRN Qty: 1 11RF fluticasone propionate [Flonase Allergy Relief] 50 mcg/actuation spray,suspension 1 spray NS DAILY Qty: 1 8RF potassium chloride [Klor-Con M20] 20 mEq tablet,ER particles/crystals 20 meq PO DAILY Qty: 90 3RF alclometasone 0.05 % cream 1 applic topical BID PRN (Reason: itching) Qty: 45 1RF gabapentin 300 mg capsule 600 mg PO TID PRN levothyroxine 200 mcg tablet 200 mcg PO DAILY Qty: 90 3RF furosemide 80 mg tablet 80 mg PO BID@0830,1600 Qty: 180 3RF ascorbic acid (vitamin C) 1,000 MG tablet 1,000 mg PO DAILY BiPAP Inhalation Gas 5 l IN DIRECTED Rx Instructions: sleep apnea ([facility] sleep lab 2012) uses with oxygen betamethasone, augmented 0.05 % lotion 1 applic topical BID PRN (Reason: allergic reaction) Qty: 60 2RF oxygen Inhalation 3 l Intranasal DIRECTED Patient Comments: Continuous and uses with bipap Rx Instructions: 3L/NC continuous pantoprazole 20 mg tablet,delayed release (DR/EC) 20 mg PO DAILY Qty: 90 3RF Rx Instructions: 04/13/23 Per GI. -hb sertraline 50 mg tablet 50 mg PO DAILY Qty: 90 3RF metolazone 2.5 mg tablet 2.5 mg PO .q tu/frid Qty: 20 2RF ketoconazole 2 % cream 1 applic topical BID PRN (Reason: facial rash) Qty: 60 1RF Jardiance 10 mg tablet 10 mg PO QAM Qty: 90 3RF torsemide 20 mg tablet 40 mg PO BID Qty: 360 3RF norethindrone acetate [Gallifrey] 5 mg tablet See Rx Instructions .ROUTE .COMPLEX Qty: 180 0RF Dose Instruction: TAKE TWO TABLETS BY MOUTH TWICE A DAY Rx Instructions: TAKE TWO TABLETS BY MOUTH TWICE A DAY lidocaine 5 % gel 1 applic topical DAILY PRN (Reason: dressing changes) Qty: 30 2RF prochlorperazine maleate [Compazine] 5 mg tablet 5 mg PO QID PRNQty: 10 0RF nystatin 100,000 unit/gram powder 1 applic TP BID Qty: 30 5RF BiomePRO 50 billion cell capsule,delayed release(DR/EC) 1 cap PO DAILY Qty: 4 0RF Rx Instructions: Take 3 hours apart form any antibiotics ipratropium-albuterol 0.5 mg-3 mg(2.5 mg base)/3 mL solution for nebulization 3 ml inhalation Q6H PRN (Reason: shortness of breath or wheezing) Qty: 90 0RF spironolactone 25 mg Tablet 25 mg PO DAILY Qty: 30 0RF doxycycline hyclate 100 mg capsule 100 mg PO BID Qty: 10 0RF prednisone 20 mg tablet 40 mg PO DAILY Qty: 10 0RF HPI General Date/Time Provider Initiated Documentation: 04/17/25 12:22. HPI Narrative: Radha is a complicated chronically ill 69-year-old female with a history of chronic bronchitis, CHF, abnormal transaminases continued tobacco use who is here with report of worsening shortness of breath. She was evaluated at this emergency department 2 days ago and had torsemide increased and doxycycline and steroids initiated. She states that she has been feeling worse since that time and having dramatically worsened dyspnea. She does use 3 L of oxygen at baseline. States that her right foot is swollen consistent with CHF, however states this feels more like COPD. Denies any new calf pain or swelling. Denies any hemoptysis. States she has had increased sputum production. Denies fever or chills Related Data Home Medications ?Medication ?Instructions ?Recorded ?Confirmed ascorbic acid (vitamin C) 1,000 mg 1,000 mg PO DAILY 11/25/12 04/16/25 tablet Bipap 5 l IN DIRECTED 07/23/14 04/16/25 betamethasone, augmented 0.05 % 1 applic topical BID PRN allergic 06/20/21 04/16/25 lotion reaction #60 mL oxygen 3 l intranasal DIRECTED 04/02/24 04/16/25 L. acidophilus,casei,rhamnosus 50 1 cap PO DAILY #4 caps 06/04/24 04/16/25 billion cell capsule,delayed release (BiomePRO) nystatin 100,000 unit/gram topical 1 applic topical BID intertrigo 06/04/24 04/16/25 powder #30 grams albuterol sulfate 90 mcg/actuation 1 - 2 puff inhalation Q6H PRN ##1 07/17/24 04/16/25 aerosol inhaler fluticasone propionate 50 1 spray NS DAILY ##1 07/17/24 04/16/25 mcg/actuation nasal spray,suspension (Flonase Allergy Relief) potassium chloride 20 mEq 20 meq PO DAILY #90 tabs 07/17/24 04/16/25 tablet,extended release(part/cryst) (Klor-Con M) pantoprazole 20 mg tablet,delayed 20 mg PO DAILY #90 tabs 07/26/24 04/16/25 release sertraline 50 mg tablet 50 mg PO DAILY #90 tabs 07/26/24 04/16/25 gabapentin 300 mg capsule 600 mg PO TID PRN 10/11/24 04/16/25 ipratropium 0.5 mg-albuterol 3 mg 3 ml inhalation Q6H PRN shortness 11/19/24 04/16/25 (2.5 mg base)/3 mL nebulization of breath or wheezing #90 mL soln alclometasone 0.05 % topical cream 1 applic topical BID PRN itching 11/20/24 04/16/25 #45 grams spironolactone 25 mg tablet 25 mg PO DAILY #30 tabs 12/02/24 04/16/25 metolazone 2.5 mg tablet 2.5 mg PO .q tues/frid #20 tabs 12/08/24 04/16/25 ketoconazole 2 % topical cream 1 applic topical BID PRN facial 12/19/24 04/16/25 rash #60 grams levothyroxine 200 mcg tablet 200 mcg PO DAILY #90 tabs 01/10/25 04/16/25 empagliflozin 10 mg tablet 10 mg PO QAM #90 tabs 02/02/25 04/16/25 (Jardiance) prochlorperazine maleate 5 mg 5 mg PO QID PRN #10 tabs 02/07/25 04/16/25 tablet (Compazine) furosemide 80 mg tablet 80 mg PO BID@0830,1600 #180 tabs 02/12/25 04/16/25 torsemide 20 mg tablet 40 mg (2 x 20 mg) PO BID #360 tabs 04/08/25 04/16/25 lidocaine 5 % topical gel 1 applic topical DAILY PRN 04/11/25 04/16/25 dressing changes #30 grams norethindrone acetate 5 mg tablet See Rx Instructions .Route 04/11/25 04/16/25 (Baldemarrey) .COMPLEX #180 tabs doxycycline hyclate 100 mg capsule 100 mg PO BID #10 caps 04/15/25 04/16/25 prednisone 20 mg tablet 40 mg (2 x 20 mg) PO DAILY #10 tabs 04/15/25 04/16/25 Previous Rx's ?Medication ?Instructions ?Recorded betamethasone, augmented 0.05 % 1 applic topical BID PRN allergic 06/20/21 lotion reaction #60 mL L. acidophilus,casei,rhamnosus 50 1 cap PO DAILY #4 caps 06/04/24 billion cell capsule,delayed release (BiomePRO) nystatin 100,000 unit/gram topical 1 applic topical BID intertrigo 06/04/24 powder #30 grams albuterol sulfate 90 mcg/actuation 1 - 2 puff inhalation Q6H PRN ##1 07/17/24 aerosol inhaler fluticasone propionate 50 1 spray NS DAILY ##1 07/17/24 mcg/actuation nasal spray,suspension (Flonase Allergy Relief) potassium chloride 20 mEq 20 meq PO DAILY #90 tabs 07/17/24 tablet,extended release(part/cryst) (Klor-Con M) pantoprazole 20 mg tablet,delayed 20 mg PO DAILY #90 tabs 07/26/24 release sertraline 50 mg tablet 50 mg PO DAILY #90 tabs 07/26/24 ipratropium 0.5 mg-albuterol 3 mg 3 ml inhalation Q6H PRN shortness 11/19/24 (2.5 mg base)/3 mL nebulization of breath or wheezing #90 mL soln alclometasone 0.05 % topical cream 1 applic topical BID PRN itching 11/20/24 #45 grams spironolactone 25 mg tablet 25 mg PO DAILY #30 tabs 12/02/24 metolazone 2.5 mg tablet 2.5 mg PO .q tues/frid #20 tabs 12/08/24 ketoconazole 2 % topical cream 1 applic topical BID PRN facial 12/19/24 rash #60 grams levothyroxine 200 mcg tablet 200 mcg PO DAILY #90 tabs 01/10/25 empagliflozin 10 mg tablet 10 mg PO QAM #90 tabs 02/02/25 (Jardiance) prochlorperazine maleate 5 mg 5 mg PO QID PRN #10 tabs 02/07/25 tablet (Compazine) furosemide 80 mg tablet 80 mg PO BID@0830,1600 #180 tabs 02/12/25 torsemide 20 mg tablet 40 mg (2 x 20 mg) PO BID #360 tabs 04/08/25 lidocaine 5 % topical gel 1 applic topical DAILY PRN 04/11/25 dressing changes #30 grams norethindrone acetate 5 mg tablet See Rx Instructions .Route 04/11/25 (Gallifrey) .COMPLEX #180 tabs doxycycline hyclate 100 mg capsule 100 mg PO BID #10 caps 04/15/25 prednisone 20 mg tablet 40 mg (2 x 20 mg) PO DAILY #10 tabs 04/15/25 Allergies Allergy/AdvReac Type Severity Reaction Status Date / Time hydrocodone Allergy Severe ITCHING Verified 04/15/25 12:13 morphine Allergy Mild PRURITIS Verified 04/15/25 12:13 oxycodone Allergy Mild ITCHING Verified 04/15/25 12:13 General Stated Complaint: SOB REUBEN: 2 Exam Narrative Exam Narrative: Alert tired appearing female in acute respiratory distress, diminished wheezes, increased work of breathing speaking in 1-2 word sentences, sinus tachycardia no abdominal tenderness lymphedema to right lower extremity 2+ edema to right foot alert and oriented x 3 no obvious rashes or lesions on extremities or abdomen Course Vital Signs Vital signs: Vital Signs Pulse 104 H 04/17/25 12:17 Respiratory Rate 28 H 04/17/25 12:17 Blood Pressure 142/69 H 04/17/25 12:17 Pulse Oximetry 91 L 04/17/25 12:17 Temperature 37.1 C 04/17/25 12:51 Temperature Source Oral 04/17/25 12:51 Pulse 91 H 04/17/25 13:50 Pulse 99 H 04/17/25 13:50 Respiratory Rate 21 04/17/25 13:50 Respiratory Effort Short of Breath, Labored, Accessory Muscle Use, Pursed Lip, Incrsd Work of Breathing 04/17/25 12:54 Respiratory Depth Retractive 04/17/25 12:54 Respiratory Pattern Tachypnea 04/17/25 12:54 Blood Pressure 129/66 04/17/25 13:46 Blood Pressure Mean 82 04/17/25 13:46 Pulse Oximetry 95 04/17/25 13:50 Oxygen Delivery Method Nasal Cannula 04/17/25 12:51 Oxygen Flow Rate 3 04/17/25 12:51 Fraction of Inspired Oxygen (FIO2) 28 04/17/25 13:46 Comment patient utilizes 3 04/17/25 12:51 Lab/Test Results Lab/Test Results: 04/17/25 14:00 Blood Blood Culture - Pending 04/17/25 13:26 Blood Blood Culture - Pending Laboratory Tests Range/Units 04/17/25 04/17/25 04/17/25 12:37 12:45 14:00 WBC (4.4-10.8) 10^3/uL 15.41 H RBC (3.93-5.22) 10^6/uL 5.43 H Hgb (11.2-15.7) g/dL 12.7 Hct (36.0-46.0) % 40.4 MCV (80-95) fL 74 L MCH (27.0-33.0) pg 23.4 L MCHC (32.0-36.0) % 31.4 L RDW (11.7-14.6) % 21.2 H Plt Count (130-400) 10^3/uL 440 H MPV (8.0-11.0) fL 9.8 Immature Gran % % 0.4 Neutrophils % % 74.8 Lymphocytes % % 13.3 Monocytes % % 10.4 Eosinophils % % 0.7 Basophils % % 0.4 Nucleated RBC % (0.0-0.3) % 0.0 Absolute Neutrophils (1.2-6.7) 10^3/uL 11.53 H Absolute Lymphocytes (1.2-3.4) 10^3/uL 2.05 Absolute Monocytes (0.1-0.8) 10^3/uL 1.60 H Absolute Eosinophils (0.0-0.7) 10^3/uL 0.11 Absolute Basophils (0.0-0.2) 10^3/uL 0.06 RBC Morphology See Below Hypochromasia 1+ Anisocytosis 1+ Microcytosis 2+ VBG pH Cancelled 7.51 H VBG pCO2 Cancelled 46 VBG pO2 Cancelled 62 VBG HCO3 Cancelled 37 H VBG Total CO2 Cancelled 33 H VBG O2 Saturation Cancelled 94 VBG Base Excess Cancelled 14 H VBG Lactate (<or=2.0) mmol/L 1.2 Sodium (136-145) mmol/L 138 Potassium (3.5-5.1) mmol/L 3.1 L Chloride (98-107) mmol/L 97 L Carbon Dioxide (21.0-32.0) mmol/L 37.8 H Anion Gap (3-11) mmol/L 3.2 BUN (7-18) mg/dL 11 Creatinine (0.55-1.02) mg/dL 0.8 Est GFR (CKD-EPI 2020) (mL/min/1.73m2) 80.21 Glucose (74-106) mg/dL 101 Calcium (8.5-10.1) mg/dL 7.4 L Magnesium (1.8-2.4) mg/dL 1.4 L Total Bilirubin (0.2-1.0) mg/dL 0.7 AST (15-37) U/L 159 H ALT (14-59) U/L 256 H Alkaline Phosphatase (46-116) U/L 84 Troponin I (<or=51) ng/L 10 10 NT-Pro-B Natriuret Pep (<300) pg/mL 201 Total Protein (6.4-8.2) g/dL 8.2 Albumin (3.4-5.0) g/dL 2.9 L Medical Decision Making Results: Chest x-ray portable with vascular congestion difficult study unable to exclude pneumonia appears similar to x-ray from 2 days prior per radiology interpretation my review see labs below, EKG shows T wave inversions in aVF and 3, nonspecific troponin 10 no S1Q3T3, QTc bile prolonged at 490 Critical care time: Approximately 45 minutes critical care time secondary to acute hypokalemia, acute hypocalcemia, acute hypomagnesemia, acute respiratory failure requiring BiPAP resuscitation meeting sepsis criteria requiring IV antibiotics and admission to this facility acute respiratory failure Assessment and plan: Patient with acute respiratory failure requiring BiPAP administration acute electrolyte abnormality potassium of 3.1, calcium of 7.6, adjusted for albumin 7.8, hypomagnesemia 1.4. Will supplement with IV mag 2 g, IV potassium 20 mill equivalents IV calcium 1 g gluconate. BiPAP patient is at 22/15 FiO2 of 30% placed by respiratory. Patient received 2 DuoNebs upon arrival resting comfortably in the room now. ABG reviewed patient is not significantly hypercarbic no change from prior will need repeat VBG. Will administer ceftriaxone and doxycycline IV 2 g of ceftriaxone as patient meets sepsis criteria. She will need admission to the hospital for continued observation and monitoring. I did review her echocardiogram from 02/09 at [facility] Quality:SDOH Health Related Social Needs: Health related social needs material hardship Health related social needs details Pt refuses to answer questions PFSH All Active Problems (Updated 04/17/25 @ 15:31 by INESSA Galicia) Hypomagnesemia (Acute) Hypokalemia (Acute) Hypercalcemia (Acute) COPD (chronic obstructive pulmonary disease) (Chronic) Respiratory failure (Acute) CHF (congestive heart failure) (Chronic) Bronchitis (Acute) Laceration of left upper extremity (Acute) Discharge planning issues (Acute) Abnormal transaminases (Acute) Pancreatitis (Chronic) Acute biliary pancreatitis (Acute) Laceration of left forearm (Acute) Anemia (Chronic) COPD exacerbation (Acute) Electrolyte disturbance (Acute) Acute on chronic hypoxic respiratory failure (Acute) Left above-knee amputee (Acute) Advanced care planning/counseling discussion (Acute) Elevated liver enzymes (Acute) Exertional shortness of breath (Acute) Heart failure with preserved ejection fraction (Acute) Wound dehiscence (Acute) Thickened endometrium (Acute) Postmenopausal bleeding (Acute) Venous stasis dermatitis (Acute) Chronic headaches (Chronic) Recent Neurology consult for possible papilledema. Urinary incontinence (Chronic) On Detrol Recurrent UTI (Chronic) Right ventricular dysfunction (Chronic) Knee pain, bilateral (Chronic 07/23/14) s/p bilat TKR (left infected with mult surg and decreased mobility) Morbid obesity (Acute 04/05/13) Sensorineural hearing loss, bilateral (Chronic 08/29/13) Advance directive on file (Acute) Low back pain with sciatica (Chronic 09/19/14) CT at [facility] L34 spinal stenosis Varicose veins of lower extremity (Chronic) Depression (Chronic) Grief at loss of child (Acute) Mixed conductive and sensorineural hearing loss of both ears (Acute) Right carpal tunnel syndrome (Acute) Arthritis of right hand (Acute) Impingement of right ulnar nerve (Acute) Dermoid cyst of neck (Acute) Microcalcifications of the breast (Acute) Neuropathy of left hand (Acute) Neuropathy of right hand (Acute) Bilateral carpal tunnel syndrome (Acute) Medical History Palliative care patient CHF (congestive heart failure) Atrial fibrillation COPD (chronic obstructive pulmonary disease) Hx pulmonary embolism (~2015) treated with lovenox x 3 months GERD (gastroesophageal reflux disease) had negative barium esophagram in 11/2022. Anxiety Lymphedema Hypothyroidism DAVID (obstructive sleep apnea) on BiPap Chronic respiratory failure with hypoxia and hypercapnia home BiPap Surgical History S/P AKA (above knee amputation) (~09/2024) Status post thyroidectomy History of fasciotomy Replacement of total knee joint Bilateral; left-became eloxhpoj-tglwurn-eatfdrsn surgeries Fasciotomy, Foot (~1996) LEFT History of Surgical Procedure a. Right and left toal knee replacements. b. Left knee has been repeatedly operated on with slava surgies, three replacements. Family History Mother Diabetes Personal history of malignant neoplasm LUNG Father Personal history of malignant neoplasm BRAIN Grandfather No problems noted. Grandfather No problems noted. Grandmother No problems noted. Grandmother No problems noted. Social History (Updated 11/28/24 @ 21:52 by Brandan Hicks) Smoking/Tobacco Use Status: Former Tobacco Use tobacco type: cigarettes Quit Date: 01/21/21 Second Hand Exposure: Yes Smoking risk assessment performed?: Yes Alcohol Intake: never Drug use: Never Substance use type: does not use Counseling given: No Housing: apartment Communication Needs: Hard of Hearing and Corrective Lenses Pets and animals: Yes Pets and animals: cat(s) Sexually active: Yes Current gender identity: female What is your relationship status?: never How often do you talk on the phone with friends or family?: decline to answer How often do you get together with friends or relatives?: decline to answer How often do you attend zoroastrian or jew services?: decline to answer Do you belong to any clubs or organized social groups?: no Panel score (0-1 are the most socially isolated patients): 0 Seatbelt use: never Do you feel safe at home: Yes Do you feel safe in your relationship?: Yes Additional Social history: Lives in her own apartment in [facility], uses electric scooter PAWSS Have you Been Recently Intoxicated or Drunk Within the Last 30 days?: No Have you Ever Experienced Previous Episodes of Alcohol Withdrawal?: No Have you ever Experienced Withdrawal Seizures?: No Have you ever Experienced Delirium Tremens(DT)s?: No Have you ever undergone Alcohol Rehabilitation Treatment (i.e, inpt ot outpatient treatment programs)?: No Have you ever Experienced Blackouts?: No Have you ever Combined Alcohol with other Downers within the last 90 days?: No Have you ever Combined Alcohol with any other Substance of Abuse during the last 90 days?: No Positive Blood Alcohol level on Presentation? [PCS.BAL]: No Evidence of Increased Autonomic Activity (i.e. HR>120, tremor, sweating, agitation, nausea)?: No Result: 0
[2025-04-17 14:51] LABS: Procalcitonin < 0.10 ng/mL
[2025-04-17 15:00] LABS: Lab Add On Test DONE
[2025-04-17 15:03] LABS: BE (Venous) 11 mmol/L (-2-3); HCO3 (Venous) 35 mmol/L (23-28); O2 Sat (Venous) 77 %; TCO2 (Venous) 31 mmol/L (24-29); pCO2 (Venous) 51 mmHg (41-51); pO2 (Venous) 43 mmHg
[2025-04-17 16:41] LABS: COVID-19 PCR Negative (Negative); RSV PCR Negative (Negative)
--- NOTE | 2025-04-17 17:32 | W.PC.ACHO ---
Registration Status: ADM IN Primary Language: Preferred Language: Yakut ED Information & Data Chief Complaint SOB 04/17/25 14:57 Triage Note Patient has SOB which 04/17/25 12:17 started on tuesday came here and got treatment. Symptoms worsened today. patient had an updraft at 11 am prior to coming to the hospital Medical / Surgical History (Updated 04/17/25 @ 15:42 by TONY SINGH) Fall Abdominal pain Palliative care patient Hypothyroidism DAVID (obstructive sleep apnea) Chronic respiratory failure with hypoxia and hypercapnia Anxiety GERD (gastroesophageal reflux disease) COPD (chronic obstructive pulmonary disease) Atrial fibrillation CHF (congestive heart failure) Lymphedema Hx pulmonary embolism (~2015) (Updated 10/10/24 @ 22:20 by Juan Helm MD) S/P AKA (above knee amputation) (~09/2024) Status post thyroidectomy History of fasciotomy History of Surgical Procedure Replacement of total knee joint Fasciotomy, Foot (~1996) Most Recent Vital Signs Temperature 37.1 C 04/17/25 16:20 Temperature Source Temporal Artery Scan 04/17/25 16:20 Pulse 92 H 04/17/25 16:21 Pulse 87 04/17/25 15:08 Respiratory Rate 26 H 04/17/25 16:21 Respiratory Effort Short of Breath, Labored, Accessory Muscle Use, Pursed Lip, Incrsd Work of Breathing 04/17/25 12:54 Respiratory Depth Retractive 04/17/25 12:54 Respiratory Pattern Tachypnea 04/17/25 12:54 Blood Pressure 138/65 04/17/25 16:20 Blood Pressure Mean 89 04/17/25 16:20 Pulse Oximetry 95 04/17/25 16:21 Oxygen Delivery Method Bi-pap 04/17/25 16:21 Oxygen Flow Rate 3 04/17/25 12:51 Fraction of Inspired Oxygen (FIO2) 28 04/17/25 16:21 Comment patient utilizes 3 04/17/25 12:51 Allergies hydrocodone Allergy (Severe, Verified 04/15/25 12:13) ITCHING morphine Allergy (Mild, Verified 04/15/25 12:13) PRURITIS oxycodone Allergy (Mild, Verified 04/15/25 12:13) ITCHING Active Medications Generic Name Dose Route Start Last Admin Trade Name Freq PRN Reason Stop Dose Admin Albuterol/Ipratropium 3 ml 04/17/25 16:00 04/17/25 16:21 Albuterol/Ipratropium 3 Ml Upd Vial UPD 3 ml Q6H DEEPTI Administration IV IV Catheter Type [Left Forearm Saline Lock ] IV Catheter Type [Right Wrist] Saline Lock IV Catheter Type [Right Saline Lock Forearm] IV Catheter Gauge [Left 20 Forearm] IV Catheter Gauge [Right Wrist 20 ] IV Catheter Gauge [Right 18 Forearm] Diet Orders Category Date Time Status Heart Healthy Eating [DIET] Nutrition 04/17/25 Dinner Active Diagnostics 04/17/25 04/17/25 04/17/25 Range/Units 15:00 14:39 14:00 WBC (4.4-10.8) 10^3/uL RBC (3.93-5.22) 10^6/uL Hgb (11.2-15.7) g/dL Hct (36.0-46.0) % MCV (80-95) fL MCH (27.0-33.0) pg MCHC (32.0-36.0) % RDW (11.7-14.6) % Plt Count (130-400) 10^3/uL MPV (8.0-11.0) fL Immature Gran % % Neutrophils % % Lymphocytes % % Monocytes % % Eosinophils % % Basophils % % Nucleated RBC % (0.0-0.3) % Absolute Neutrophils (1.2-6.7) 10^3/uL Absolute Lymphocytes (1.2-3.4) 10^3/uL Absolute Monocytes (0.1-0.8) 10^3/uL Absolute Eosinophils (0.0-0.7) 10^3/uL Absolute Basophils (0.0-0.2) 10^3/uL RBC Morphology Hypochromasia Anisocytosis Microcytosis VBG pH 7.45 H VBG pCO2 51 VBG pO2 43 VBG HCO3 35 H VBG Total CO2 31 H VBG O2 Saturation 77 VBG Base Excess 11 H VBG Lactate (<or=2.0) mmol/L Sodium (136-145) mmol/L Potassium (3.5-5.1) mmol/L Chloride (98-107) mmol/L Carbon Dioxide (21.0-32.0) mmol/L Anion Gap (3-11) mmol/L BUN (7-18) mg/dL Creatinine (0.55-1.02) mg/dL Est GFR (CKD-EPI 2020) (mL/min/1.73m2) Glucose (74-106) mg/dL Calcium (8.5-10.1) mg/dL Magnesium (1.8-2.4) mg/dL Total Bilirubin (0.2-1.0) mg/dL AST (15-37) U/L ALT (14-59) U/L Alkaline Phosphatase (46-116) U/L Troponin I 10 (<or=51) ng/L NT-Pro-B Natriuret Pep (<300) pg/mL Total Protein (6.4-8.2) g/dL Albumin (3.4-5.0) g/dL Procalcitonin < 0.10 ng/mL COVID-19 Source SARS-CoV-2 (PCR) (Negative) Influenza Type A (PCR) (Negative) Influenza Type B (PCR) (Negative) RSV (PCR) (Negative) Add-On Test Request DONE 04/17/25 04/17/25 04/17/25 Range/Units 13:06 12:45 12:37 WBC 15.41 H (4.4-10.8) 10^3/uL RBC 5.43 H (3.93-5.22) 10^6/uL Hgb 12.7 (11.2-15.7) g/dL Hct 40.4 (36.0-46.0) % MCV 74 L (80-95) fL MCH 23.4 L (27.0-33.0) pg MCHC 31.4 L (32.0-36.0) % RDW 21.2 H (11.7-14.6) % Plt Count 440 H (130-400) 10^3/uL MPV 9.8 (8.0-11.0) fL Immature Gran % 0.4 % Neutrophils % 74.8 % Lymphocytes % 13.3 % Monocytes % 10.4 % Eosinophils % 0.7 % Basophils % 0.4 % Nucleated RBC % 0.0 (0.0-0.3) % Absolute Neutrophils 11.53 H (1.2-6.7) 10^3/uL Absolute Lymphocytes 2.05 (1.2-3.4) 10^3/uL Absolute Monocytes 1.60 H (0.1-0.8) 10^3/uL Absolute Eosinophils 0.11 (0.0-0.7) 10^3/uL Absolute Basophils 0.06 (0.0-0.2) 10^3/uL RBC Morphology See Below Hypochromasia 1+ Anisocytosis 1+ Microcytosis 2+ VBG pH 7.51 H Cancelled VBG pCO2 46 Cancelled VBG pO2 62 Cancelled VBG HCO3 37 H Cancelled VBG Total CO2 33 H Cancelled VBG O2 Saturation 94 Cancelled VBG Base Excess 14 H Cancelled VBG Lactate 1.2 (<or=2.0) mmol/L Sodium 138 (136-145) mmol/L Potassium 3.1 L (3.5-5.1) mmol/L Chloride 97 L (98-107) mmol/L Carbon Dioxide 37.8 H (21.0-32.0) mmol/L Anion Gap 3.2 (3-11) mmol/L BUN 11 (7-18) mg/dL Creatinine 0.8 (0.55-1.02) mg/dL Est GFR (CKD-EPI 2020) 80.21 (mL/min/1.73m2) Glucose 101 (74-106) mg/dL Calcium 7.4 L (8.5-10.1) mg/dL Magnesium 1.4 L (1.8-2.4) mg/dL Total Bilirubin 0.7 (0.2-1.0) mg/dL AST 159 H (15-37) U/L ALT 256 H (14-59) U/L Alkaline Phosphatase 84 (46-116) U/L Troponin I 10 (<or=51) ng/L NT-Pro-B Natriuret Pep 201 (<300) pg/mL Total Protein 8.2 (6.4-8.2) g/dL Albumin 2.9 L (3.4-5.0) g/dL Procalcitonin ng/mL COVID-19 Source Nasopharynx SARS-CoV-2 (PCR) Negative (Negative) Influenza Type A (PCR) Negative (Negative) Influenza Type B (PCR) Negative (Negative) RSV (PCR) Negative (Negative) Add-On Test Request 04/17/25 14:00 Blood Culture - Pending Blood 04/17/25 13:26 Blood Culture - Pending Blood Intake and Output - 24 Hour Total 04/17/25 12:12 thru 04/17/25 15:27 Intake Total 210 Balance 210 Weight 169 kg Intake: IV 210 Falls Risk Assessment History of Falls Previous History 04/17/25 12:54 Contributing Factors Confusion,Unstable, 04/17/25 12:54 Impairments,Incontinence, Medications Ambulatory Aids Uses ambulatory device + 04/17/25 12:54 Tubes/Lines With any additional score 04/17/25 12:54 Gait Evaluation W/any additional score 04/17/25 12:54 Cognition No cognitive impairment 04/17/25 12:54 Fall Total Score 100 04/17/25 12:54 Level of Risk Maximum Risk 04/17/25 12:54 v v v v v v v v v Sending and/or Receiving Nurses: Please use comment section below to note any information pertinent to the patient hand-off not included above. Information / Comments: Report received from: Vamsi @15:15.
[2025-04-17 17:55] LABS: Lipase 41 U/L (<78)
--- NOTE | 2025-04-17 18:35 | NUR.NOTE ---
Nursing Note: Pt is refusing bed alarm. Patient stated, I can do all of this myself, I don't need you. Pt was educated on the importance of the bed alarm and the use of nursing staff to implement safety measures, but patient still declined. The bed alarm is now off on the bed per pt's request.
[2025-04-17] MEDS: Furosemide 100 MG/10 ML VIAL 80 MG IVP (18:41)
[2025-04-17] MEDS: Normal Saline Flush 10 ML SYR IVP (20:47)
[2025-04-17] MEDS: Enoxaparin 60 MG/0.6 ML SYR SC (20:48)
[2025-04-17] MEDS: guaiFENesin 600 MG TABCR PO (20:48)
[2025-04-17] MEDS: Nystatin POWDER 15 GM JAR TP (21:15)
[2025-04-18] VITALS (9 sets, daily range): BP systolic 97–130; BP diastolic 48–64; PULSE 77–101; RESP 16–22; TEMP 36.8–37.3; O2SAT 93–94
[2025-04-18] MEDS: DOXYCYCLINE 100 MG in Normal Saline 100 ML IVPB ×2 (01:50→13:02)
[2025-04-18] MEDS: Albuterol/Ipratropium 3 ML UPD VIAL UPD ×4 (03:30→22:02)
[2025-04-18] MEDS: methylPREDNISolone SUCC 125 MG VIAL 80 MG IVP (04:30)
--- NOTE | 2025-04-18 04:31 | RESPIRATORY ---
Pt had her home unit brought in to use for the night. NK at bedside in case pt needs higher settings or has any acute respiratory events.
[2025-04-18 06:39] LABS: Abs Immature Grans 0.03 10^3/uL (0.0-0.06); HCT 36.9 % (36.0-46.0); HGB 11.7 g/dL (11.2-15.7); Immature Grans % 0.3 %; MCH 23.4 pg (27.0-33.0); MCHC 31.7 % (32.0-36.0); MCV 74 fL (80-95); MPV 10.6 fL (8.0-11.0); Platelet Count 371 10^3/uL (130-400); RBC 5.00 10^6/uL (3.93-5.22); RDW 21.1 % (11.7-14.6); RDW-SD 55.3 fL; WBC 9.81 10^3/uL (4.4-10.8)
[2025-04-18 06:49] LABS: Magnesium 2.0 mg/dL (1.8-2.4)
[2025-04-18 07:01] LABS: ALT 311 U/L (14-59); AST 193 U/L (15-37); Albumin 2.7 g/dL (3.4-5.0); Alkaline Phosphatase 74 U/L (46-116); Anion Gap 8.7 mmol/L (3-11); BUN 15 mg/dL (7-18); Bilirubin, Total 0.8 mg/dL (0.2-1.0); CO2 31.3 mmol/L (21.0-32.0); Calcium 7.4 mg/dL (8.5-10.1); Chloride 95 mmol/L (98-107); Estimated GFR 69.64 (mL/min/1.73m2); Glucose 196 mg/dL (74-106); Potassium 3.5 mmol/L (3.5-5.1); Sodium 135 mmol/L (136-145); Total Protein 7.8 g/dL (6.4-8.2)
[2025-04-18] MEDS: Lactobacillus Acidophilus CAP 1 CAP PO (08:20)
[2025-04-18] MEDS: guaiFENesin 600 MG TABCR PO ×2 (08:20→20:16)
[2025-04-18] MEDS: predniSONE 20 MG TAB 40 MG PO (08:21)
[2025-04-18] MEDS: Ascorbic Acid 500 MG TAB 1000 MG PO (08:21)
[2025-04-18] MEDS: Furosemide 100 MG/10 ML VIAL 80 MG IVP ×2 (08:23→15:59)
[2025-04-18] MEDS: Enoxaparin 60 MG/0.6 ML SYR SC ×2 (08:23→20:16)
[2025-04-18] MEDS: Sertraline 50 MG TAB PO (08:23)
[2025-04-18] MEDS: Nystatin POWDER 15 GM JAR TP ×2 (08:34→20:17)
[2025-04-18] MEDS: Fluticasone NASAL SPRAY 16 GM BTL NS (08:34)
[2025-04-18] MEDS: Normal Saline Flush 10 ML SYR IVP ×2 (09:15→20:17)
--- NOTE | 2025-04-18 09:22 | INITIAL_ITS ---
Date of service: 04/18/25 Time of Service: 09:22 Care Management Initial Assmt Initial Assessment Reason for Hospitalization: COPD exacerbation in setting of pneumonia Functional Status/Living Situation Patient Presentation: Radha is well known to this CM. She was admitted through the ED yesterday afternoon for COPD exacerbation and pneumonia. She had been seen in the ED on 04/15 and was dx with bronchitis. She was sent home on antibiotics and instructed to increase her torsemide dose. She returned yesterday with c/o worsening dyspnea. Her HH RN sent her in as she was having difficulty speaking due to her dyspena. She required bipap for her symptoms, and was started on double IV antibiotics and IVP steroids. Radha was lying in bed when CM met with her today. She was very pleasant. She stated that she has actually been doing pretty well. She was cleared from PT and despite the recommendation from her PT nikky, she does not want PT to start up again, she doesn't feel that they can really help her any more, and she has been practicing standing and balancing on her leg. She is now able to transfer into the shower on her own. She is not interested in OT, either. Radha has been approved for Choices for Care, but she stated that her in home assistance has not started yet as her Injection Molding Supervisor, Amanda Hernadez, has not completed her paperwork Town of Residence: [facility] Resides with: Other (granddaughter, [place], her boyfriend, and SO Galo) Significant Other/Family: Local (son, Ashish, SO Galo. Radha' sister lives nearby and is a great support and they speak often. Radha also spends a lot of time with her 3yo granddaughter, daughter is out of town and visits weekly.) Natural Supports: family, [facility], [facility] - CM Amanda Hernadez Employment Status: Disabled Instrumental Activities of Daily Living (ADLs): Independent and Requires support Activities/Hobbies/SocialSupport: Radha enjoys cooking and caring for her young granddaughter, Maria Luz. Radha rides around town on her electric scooter. She also likes spending time with her sister and taking road trips. Medications Medication Management: No Issues/Barriers identified Physical Functioning/Mobility Assistive Device: electric wheel chair. Basically w/c bound. Can transfer chair to chair, pivot, stand. Radha has a handicapped accessible bathroom, and through her [facility] funds she will be getting a washer and dryer in her apartment. Advance Directives Advance Directives: Do you have an Advance Directive: Y , 07:49 AD On File at [facility]: Y 04/11/24, 07:49 Date Asked 03/06/25 03/06/25, 15:18 AD Date Reviewed 04/17/25 04/17/25, 12:15 COLST On File at [facility] No 04/17/25, 16:12 COLST Date Scanned Code Status Resuscitation Status Full Code Insurance Coverage/Financial Issues Insurance: AARP/UN.TH [facility] Replacement - [id number] Medicaid of [place] Care Team Visit Care Team Role Provider Type Zoila De La Garza APRN MD [facility] STAFF PHYSICIAN Alphonso Murphy MD Primary Care Provider [facility] STAFF PHYSICIAN InPatient Rodrick Saha Other Providers OTHER [facility] Provider PH[facility]ICI[facility] TEENA[employer] BABYS[employer]TER Juan Cesar MD Admit Provider [facility] STAFF PHYSICIAN Attending Provider Discharge Potential Discharge Needs: PCP F/U Appt Anticipated Barriers to Discharge: None Identified Patient/Family Education Needs: Review discharge instructions, discuss Ask Me Three Transportation: Other (RCT vs private vehicle. Sometimes Radha can get a ride.) Plan: Anticipate that Radha will discharge home once she is medically stable. She will continue with her HH services of SN, f/u with her PCP, and continue per her plan of care. CM will continue to follow. Transportation will be determined at time of discharge. Social Determinants of Health Screening Social Determinants of health last assessed in clinic: 04/18/25 Will the Patient Participate in the Screening?: Yes Do you worry about having a steady place to live?: no Problems where you live: no known problems In the past 12 months, have you had to go without electric, gas, oil or water in your home?: no 1. Within the past 12 months, we worried whether our food would run out before we got money to buy more.: Never true 2. Within the past 12 months, the food we bought just didn't last and we didn't have money to get more.: Never true Has lack of transportation kept you from medical appointments or from doing things needed for daily living?: no Has anyone in your life made you feel unsafe or unsupported?: no How hard is it for you to pay for the very basics like food, housing, medical care, and heating? Would you say it is:: Not hard at all Do you want help finding or keeping work or a job?: I do not need or want help If for any reason you need help with day-to-day activities such as bathing, preparing meals, shopping, managing finances, etc., do you get the help you need?: I don?t need any help How often do you feel lonely or isolated from those around you?: Never Do you speak a language other than Nigerian at home?: No Does the patient want assistance with any of the above?: No PFSH All Active Problems (Updated 04/17/25 @ 17:41 by Zoila De La Garza APRN) Acute interstitial pneumonia (Acute) Hypomagnesemia (Acute) Hypokalemia (Acute) Hypercalcemia (Acute) COPD (chronic obstructive pulmonary disease) (Chronic) Respiratory failure (Acute) CHF (congestive heart failure) (Chronic) Bronchitis (Acute) Laceration of left upper extremity (Acute) Discharge planning issues (Acute) Abnormal transaminases (Acute) Pancreatitis (Chronic) Acute biliary pancreatitis (Acute) Laceration of left forearm (Acute) Anemia (Chronic) COPD exacerbation (Acute) Electrolyte disturbance (Acute) Acute on chronic hypoxic respiratory failure (Acute) Left above-knee amputee (Acute) Advanced care planning/counseling discussion (Acute) Elevated liver enzymes (Acute) Exertional shortness of breath (Acute) Heart failure with preserved ejection fraction (Acute) Wound dehiscence (Acute) Thickened endometrium (Acute) Postmenopausal bleeding (Acute) Venous stasis dermatitis (Acute) Chronic headaches (Chronic) Recent Neurology consult for possible papilledema. Urinary incontinence (Chronic) On Detrol Recurrent UTI (Chronic) Right ventricular dysfunction (Chronic) Knee pain, bilateral (Chronic 07/23/14) s/p bilat TKR (left infected with mult surg and decreased mobility) Morbid obesity (Acute 04/05/13) Sensorineural hearing loss, bilateral (Chronic 08/29/13) Advance directive on file (Acute) Low back pain with sciatica (Chronic 05/03/14) [place] [facility] [place] Varicose veins of lower extremity (Chronic) Depression (Chronic) Grief at loss of child (Acute) Mixed conductive and sensorineural hearing loss of both ears (Acute) Right carpal tunnel syndrome (Acute) Arthritis of right hand (Acute) Impingement of right ulnar nerve (Acute) Dermoid cyst of neck (Acute) Microcalcifications of the breast (Acute) Neuropathy of left hand (Acute) Neuropathy of right hand (Acute) Bilateral carpal tunnel syndrome (Acute) Medical History Palliative care patient CHF (congestive heart failure) Atrial fibrillation COPD (chronic obstructive pulmonary disease) Hx pulmonary embolism (~2015) treated with lovenox x 3 months GERD (gastroesophageal reflux disease) had negative barium esophagram in 11/2022. Anxiety Lymphedema Hypothyroidism DAVID (obstructive sleep apnea) on BiPap Chronic respiratory failure with hypoxia and hypercapnia home BiPap Surgical History S/P AKA (above knee amputation) (~09/2024) Status post thyroidectomy History of fasciotomy Replacement of total knee joint Bilateral; left-became vqbecnth-iguhkad-gkacjihv surgeries Fasciotomy, Foot (~1996) LEFT History of Surgical Procedure a. Right and left toal knee replacements. b. Left knee has been repeatedly operated on with slava surgies, three replacements. Family History Mother Diabetes Personal history of malignant neoplasm LUNG Father Personal history of malignant neoplasm BRAIN Grandfather No problems noted. Grandfather No problems noted. Grandmother No problems noted. Grandmother No problems noted. Social History (Updated 11/28/24 @ 21:52 by Brandan Hicks) Smoking/Tobacco Use Status: Former Tobacco Use tobacco type: cigarettes Quit Date: 01/21/21 Second Hand Exposure: Yes Smoking risk assessment performed?: Yes Alcohol Intake: never Drug use: Never Substance use type: does not use Counseling given: No Housing: house Communication Needs: Hard of Hearing and Corrective Lenses Pets and animals: Yes Pets and animals: cat(s) Sexually active: Yes Current gender identity: female What is your relationship status?: never How often do you talk on the phone with friends or family?: decline to answer How often do you get together with friends or relatives?: decline to answer How often do you attend confucianism or buddhism services?: decline to answer Do you belong to any clubs or organized social groups?: no Panel score (0-1 are the most socially isolated patients): 0 Seatbelt use: never Do you feel safe at home: Yes Do you feel safe in your relationship?: Yes Additional Social history: Lives in her own apartment in [facility], uses electric scooter Anticipated HH Services Anticipated HH Services at Discharge [facility] [place] Anticipated Date of Discharge: 04/19/25. Following Provider: Alphonso Murphy.
--- NOTE | 2025-04-18 10:15 | PT.INIE ---
PT Notes Visit Reasons: Sepsis, Interstial pneumonia Physical Therapy Inpatient Initial Evaluation Date: 04/19/2025 Referring Doctor: Zoila De La Garza NP PT Orders: PT CONSULT: 'Safety Consult for D/C. Precautions: Fall. Standard. Activity as tolerated. L AKA. Admitting Daignoses/Patient Profile: Radha is a 69-year-old palliative care patient female with past medical history significant for B LE lymphedema, S/P L AKA, low back pain, L3-L4 spinal stenosis, and multiple L knee surgeries and R TKA who presented to the ED due to worsening shortness of breath. Patient is admitted for mangement of sepsis, PNA, COPD exacerbation hypomagnesemia, hypokalemia, and elevated liveer enzymes. PMHx: All Active Problems (Updated 04/17/25 @ 17:41 by Zoila De La Garza APRN) Acute interstitial pneumonia (Acute) Hypomagnesemia (Acute) Hypokalemia (Acute) Hypercalcemia (Acute) COPD (chronic obstructive pulmonary disease) (Chronic) Respiratory failure (Acute) CHF (congestive heart failure) (Chronic) Bronchitis (Acute) Laceration of left upper extremity (Acute) Discharge planning issues (Acute) Abnormal transaminases (Acute) Pancreatitis (Chronic) Acute biliary pancreatitis (Acute) Laceration of left forearm (Acute) Anemia (Chronic) COPD exacerbation (Acute) Electrolyte disturbance (Acute) Acute on chronic hypoxic respiratory failure (Acute) Left above-knee amputee (Acute) Advanced care planning/counseling discussion (Acute) Elevated liver enzymes (Acute) Exertional shortness of breath (Acute) Heart failure with preserved ejection fraction (Acute) Wound dehiscence (Acute) Thickened endometrium (Acute) Postmenopausal bleeding (Acute) Venous stasis dermatitis (Acute) Chronic headaches (Chronic) Recent Neurology consult for possible papilledema. Urinary incontinence (Chronic) On Detrol Recurrent UTI (Chronic) Right ventricular dysfunction (Chronic) Knee pain, bilateral (Chronic 07/23/14) s/p bilat TKR (left infected with mult surg and decreased mobility) Morbid obesity (Acute 04/05/13) Sensorineural hearing loss, bilateral (Chronic 08/29/13) Advance directive on file (Acute) Low back pain with sciatica (Chronic 05/03/14) [place] [facility] [place] Varicose veins of lower extremity (Chronic) Depression (Chronic) Grief at loss of child (Acute) Mixed conductive and sensorineural hearing loss of both ears (Acute) Right carpal tunnel syndrome (Acute) Arthritis of right hand (Acute) Impingement of right ulnar nerve (Acute) Dermoid cyst of neck (Acute) Microcalcifications of the breast (Acute) Neuropathy of left hand (Acute) Neuropathy of right hand (Acute) Bilateral carpal tunnel syndrome (Acute) Medical History Palliative care patient CHF (congestive heart failure) Atrial fibrillation COPD (chronic obstructive pulmonary disease) Hx pulmonary embolism (~2015) treated with lovenox x 3 months GERD (gastroesophageal reflux disease) had negative barium esophagram in 11/2022.Anxiety Lymphedema Hypothyroidism DAVID (obstructive sleep apnea) on BiPap Chronic respiratory failure with hypoxia and hypercapnia home BiPap Surgical History S/P AKA (above knee amputation) (~09/2024) Status post thyroidectomy History of fasciotomy Replacement of total knee joint Bilateral; left-became lemmddfb-ftzvnnn-tjzjtvjf surgeriesFasciotomy, Foot (~1996) LEFTHistory of Surgical Procedure a. Right and left toal knee replacements. b. Left knee has been repeatedly operated on with slava surgies, three replacements. Social History/Home Situation: Lives with significant other in a private home. Has a ramp to enter the house. Independent with bed<>motorized wheelchair and chair<>motorized wheelchair using armrests for support and stand pivot technique. Able to cook meals while seated on motorized chair. SUBJECTIVE: Agreeable to calling nursing staff every time she needs to get OOB until cleared by PT for independent stand pivot transfers. DME: Motorized wheelchair, FWW, shower chair Objective: General Observation: Sitting on edge of bed. Oxygen supplementation via mask. High BMI. Schmitt catheter in place. Mental Status: Alert and oriented x 4 Pain: Generalized pain Vital Signs: Closely monitored by nursing staff ROM: Right Upper Extremity: Shoulder Flexion allowed up to 90 degrees. Shoulder abduction allowed up to 90 degrees. Elbow flexion WFL. Wrist flexion WFL. Functional opening and closing of hand WFL. Left Upper Extremity: Shoulder Flexion allowed up to 90 degrees. Shoulder abduction allowed up to 90 degrees. Elbow flexion WFL. Wrist flexion WFL. Functional opening and closing of hand WFL. Right Lower Extremity: Hip flexion allowed up to 90 degrees. Hip abduction 20 degrees. Knee flexion allowed up to 45 degrees and 90 degrees. Knee extension -45 degrees. Ankle dorsiflexion WFL. Ankle plantarflexion WFL. Left Lower Extremity: Hip flexion allowed up to 90 degrees. Hip abduction 20 degrees. Strength: Right Upper Extremity: Shoulder flexors 3-/5. Shoulder abductors 3-/5. Elbow flexors 3/5. Elbow extensors 3/5. Car Worker strong. Left Upper Extremity: Shoulder flexors 3-/5. Shoulder abductors 3-/5. Elbow flexors 3/5. Elbow extensors 3/5. Car Worker strong. Right Lower Extremity: Hip flexors 2-/5. Hip abductors 2-/5. Knee flexors 3-/5. Knee extensors 2-/5. Ankle dorsiflexors 2-/5. Ankle plantarflexors 2-/5. Left Lower Extremity: Hip flexors 2-/5. Hip abductors 2-/5. Sensation: Intact as to pain and pressure on bilateral lower extremities. Bed Mobility/Transfers: Moderate cueing provided for use of B hands as needed for support, movement sequence, AD management, and posture to reduce fall risk and minimize pain report Sit to supine stand by assist with HOB at 45 degrees Stand to sit stand by assist, one hand holding onto bed rail and other hand holding onto wheelchair arm rests for support Bed to bedside commode stand by assist, one hand holding onto bed rail and other hand holding onto wheelchair arm rests for support Gait: Unable at this time. Balance: Static Sitting: Good Dynamic Sitting: Fair Static Standing: Poor Dynamic Standing: Unable to perform Special Tests: Mobility Limitations Standardized Measure [facility] 6 clicks Basic Mobility Inpatient Short Form: Raw Score: 15 CMS Score: 58% deficit Informed Consent/Education: Patient was instructed in purpose of PT consult and plan of care. Agreeable to proceed with established PT POC to achieve personal goals. ASSESSMENT: Radha was able to transfer from edge of bed to bedside commode with stand by assist. She used both hands for support, holding onto bed rail and the wheelchair armrests as needed. She felt safe positioning the wheelchair close to her L side as she uses her L AKA residual limb as additional support by initially placing it on the wheelchair as she pivots slowly with the R LE. She was able to transfer to and from the bedside commode with the R LE leading with both hands holding onto wheelchair and bedside commode for stability. Trying it with the R LE leading and with the wheelchair positioned close to her R side made her more unstable and short of breath. Patient will highly benefit from continued PT services for strengthening, balance training, and residual limb shaping with patient goal of getiing a L AKA prosthesis when cleared by . Radha presents with clinical signs and symptoms consistent with current/admitting diagnoses that have resulted to mobility limitations, gait instability, generalized weakness, and impairment of motor control as demonstrated by the following impairment level findings: 1. Decreased strength to B UE/LE major muscle groups 2. Impaired standing balance 3. Impaired activity tolerance 4. Positive Stemmer sign in toes in B LE 5. Skin breakdown to R leg being managed by wound nurse 6. 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 Inability to safely ambulate without assistive device and physical assistance 2. Increase completion time for mobility ADL performance 3. Increased fall risk 4. Increased risk for skin breakdown Patient is assessed as a [id number] moderate complexity based on the following: History: 69-year-old female with impairment level findings, functional limitations, and past medical history as indicated above Examination: Demonstrable impairment in strength, range of motion, and functional mobility level with underlying impairments and functional limitations as documented above Presentation: Stable Decision Makin moderate complexity Goals: Goals X1 week 1. Supine-Sit to 2. Sit-Supine independent 3. Sit-Stand independent 4. Stand-Sit independent 5. Bed-Chair independent 6. Chair-Bed independent Plan of Care/Treatment Plan: Patient will highly benefit from skilled physical therapy services including functional mobility training, bed mobility/transfer training, gait and balance training, therapeutic exercises, therapeutic activity, caregiver/staff/family education and training 1x/day, 7 days/week x 1 week. Plan of care has been reviewed with the FAMILY PRACTICE MEDICAL DOCTOR providing the service under Physical Therapy direction. Initiate Physical Therapy intervention for strengthening, bed mobility, transfers, and use of assistive device. DISCHARGE RECOMMENDATIONS: Patient will benefit from home health PT services for transfer training, strengthening, residula limb reshaping, assessment of home safety, identify additional equipment needs, and establish a functional maintenance program that will increase ability of patient to remain at home. Consider resumption of complete decongestive therapy to address lymphedema symptoms. TREATMENT CODE/TIME: 75315 x 20 minutes for 1 unit (10:10-10:30). Thank you for the opportunity to participate in the care of this patient. Please do not hesitate to contact me with any questions or concerns regarding this patient's plan of care. Desi Pastor, PT, DPT, CLT [facility]
[2025-04-18 12:12] LABS: Hemoglobin A1C 6.3 % (<5.7)
--- NOTE | 2025-04-18 12:18 | W.PM.PROGNOT ---
Date of Service Date of service: 04/18/25 Time of Service: 12:20 Assessment and Plan Assessment and plan (1) Sepsis: Status: Resolved Assessment and plan: On admission WBC 15.41 with tachycardia HR up to 104, tachypnea RR 26 -Source respiratory Resolving WBC improved Blood Cx pending As per point 2 (2) Acute interstitial pneumonia: Status: Acute Assessment and plan: As per imaging on 04/17 Might be the etiology of point 2 with sick contact as per HPI but URV panel is negative Ongoing ceftriaxone and doxycycline Continue Mucinex, pulmonary toilet, scheduled and PRN nebs (3) COPD exacerbation: Status: Acute Assessment and plan: In the setting of PNA Now on oral prednisone/ IV methylprednisolone completed VBG neagtive for CO2 retention - showed metabolic alkalosis but improved s/p IV lasix in ED Improving symptoms with BIPAP with 28% Oxygen - no hypoxia Wean down to BIPAP as per home setting (4) Hypomagnesemia: Status: Acute Assessment and plan: Supplemented and resolved - Mg in AM (5) Hypokalemia: Status: Acute Assessment and plan: Supplemented and resolved CMP in AM (6) Respiratory failure: Status: Acute Assessment and plan: No hypoxia, no hypercapnia and no acidosis but increased pressure on BIPAP Resolved - not continuous need for BIPAP at this time (7) CHF (congestive heart failure): Status: Chronic Assessment and plan: No clear exacerbation of HFpEF with BNP is normal, no crackles , no worsening LEs edema but has bilat exp wheezing Ongoing home regimen Increased torsemide on Tuesday - will give IV lasix initially and transition to oral prior to discharge (8) Bronchitis: Status: Acute Assessment and plan: Seen in the ED on 04/15 and sent home on oral antibiotics and steroids but retuned with worsening symptoms Imaging suspicious for interstitial penumonia And as per point 2 (9) Left above-knee amputee: Status: Acute Assessment and plan: Wound care as per HH nursing -mepilex on distal AKA site Ulcer distal to L AKA Wound consult (10) Elevated liver enzymes: Status: Acute Assessment and plan: Up trend - will continue to monitor R sided ABD pain palpation resolved today Lipase negative considering imaging in AM if no improvement / previous findings on 02/07/25: gallbladder is distended measuring 5 cm in diameter. At the time [facility] only recommended f/u, IVf and T bili trend T bili 0.8- continue to trend - if worsening (11) Heart failure with preserved ejection fraction: Status: Acute Assessment and plan: On home regimen IV diuretic then transtion backl to dosing as her torsemide was increased on Tuesday (12) Postmenopausal bleeding: Status: Acute Assessment and plan: Continue home medicine regimen (13) Atrial fibrillation: Assessment and plan: Hx of - SR on admission (14) Discharge planning issues: Status: Acute Assessment and plan: Home with PT RN Discussed with Dr. Cesar Subjective Subjective Patient reports: no new complaints, feels better, tolerating liquids well, tolerating a regular diet, voiding w/o difficulty, flatus, afebrile and other (feels cold - no chills or shivers ); denies no bowel movement (last 04/17/25), diarrhea, nausea, vomiting, shortness of breath or fever Exam Narrative Exam Narrative: Constitutional Morbidly obese patient 69 yo female s/p left AKA with Mepilex on chronic lesion with distalulcer, in no acute distress, alert and oriented X4, neurologically intact, clear upper lungs , decreased bases, laryngeal wheezing on increased WOB, no crackles Distant S1-S2 regular, bilateral radial and right dorsalis pedis pulses are positive, bilateral lower extremity edema with left AKA with mepilex dressing dry clean and intact Abdomen is large, not distended, soft and non-tender, bowel sounds are present,moves all 4 extremities , RASS 0, congruent mood and normal affect. Psych Mood: congruent mood and anxious mood Affect: normal affect, labile affect and anxious affect Attitude: cooperative Thought Process: circumstantial Insight: limited Objective Last Vital Signs Temp 37.3 C 04/18/25 07:19 Pulse 79 04/18/25 07:19 Resp 16 04/18/25 08:52 BP 97/48 L 04/18/25 07:19 Pulse Ox 94 04/18/25 07:19 Laboratory Results - last 24 hr 04/17/25 04/17/25 04/17/25 12:37 12:45 13:06 WBC 15.41 H RBC 5.43 H Hgb 12.7 Hct 40.4 MCV 74 L MCH 23.4 L MCHC 31.4 L RDW 21.2 H Plt Count 440 H MPV 9.8 Immature Gran % 0.4 Neutrophils % 74.8 Lymphocytes % 13.3 Monocytes % 10.4 Eosinophils % 0.7 Basophils % 0.4 Nucleated RBC % 0.0 Absolute Neutrophils 11.53 H Absolute Lymphocytes 2.05 Absolute Monocytes 1.60 H Absolute Eosinophils 0.11 Absolute Basophils 0.06 RBC Morphology See Below Hypochromasia 1+ Anisocytosis 1+ Microcytosis 2+ VBG pH Cancelled 7.51 H VBG pCO2 Cancelled 46 VBG pO2 Cancelled 62 VBG HCO3 Cancelled 37 H VBG Total CO2 Cancelled 33 H VBG O2 Saturation Cancelled 94 VBG Base Excess Cancelled 14 H VBG Lactate 1.2 Sodium 138 Potassium 3.1 L Chloride 97 L Carbon Dioxide 37.8 H Anion Gap 3.2 BUN 11 Creatinine 0.8 Est GFR (CKD-EPI 2020) 80.21 Glucose 101 Hemoglobin A1c Calcium 7.4 L Magnesium 1.4 L Total Bilirubin 0.7 AST 159 H ALT 256 H Alkaline Phosphatase 84 Troponin I 10 NT-Pro-B Natriuret Pep 201 Total Protein 8.2 Albumin 2.9 L Lipase 41 Procalcitonin COVID-19 Source Nasopharynx SARS-CoV-2 (PCR) Negative Influenza Type A (PCR) Negative Influenza Type B (PCR) Negative RSV (PCR) Negative Add-On Test Request 04/17/25 04/17/25 04/17/25 14:00 14:39 15:00 WBC RBC Hgb Hct MCV MCH MCHC RDW Plt Count MPV Immature Gran % Neutrophils % Lymphocytes % Monocytes % Eosinophils % Basophils % Nucleated RBC % Absolute Neutrophils Absolute Lymphocytes Absolute Monocytes Absolute Eosinophils Absolute Basophils RBC Morphology Hypochromasia Anisocytosis Microcytosis VBG pH 7.45 H VBG pCO2 51 VBG pO2 43 VBG HCO3 35 H VBG Total CO2 31 H VBG O2 Saturation 77 VBG Base Excess 11 H VBG Lactate Sodium Potassium Chloride Carbon Dioxide Anion Gap BUN Creatinine Est GFR (CKD-EPI 2020) Glucose Hemoglobin A1c Calcium Magnesium Total Bilirubin AST ALT Alkaline Phosphatase Troponin I 10 NT-Pro-B Natriuret Pep Total Protein Albumin Lipase Procalcitonin < 0.10 COVID-19 Source SARS-CoV-2 (PCR) Influenza Type A (PCR) Influenza Type B (PCR) RSV (PCR) Add-On Test Request DONE 04/18/25 06:10 WBC 9.81 RBC 5.00 Hgb 11.7 Hct 36.9 MCV 74 L MCH 23.4 L MCHC 31.7 L RDW 21.1 H Plt Count 371 MPV 10.6 Immature Gran % 0.3 Neutrophils % 89.5 Lymphocytes % 8.5 Monocytes % 1.6 Eosinophils % 0.0 Basophils % 0.1 Nucleated RBC % 0.0 Absolute Neutrophils 8.78 H Absolute Lymphocytes 0.83 L Absolute Monocytes 0.16 Absolute Eosinophils 0.00 Absolute Basophils 0.01 RBC Morphology Hypochromasia Anisocytosis Microcytosis VBG pH VBG pCO2 VBG pO2 VBG HCO3 VBG Total CO2 VBG O2 Saturation VBG Base Excess VBG Lactate Sodium 135 L Potassium 3.5 Chloride 95 L Carbon Dioxide 31.3 Anion Gap 8.7 BUN 15 Creatinine 0.9 Est GFR (CKD-EPI 2020) 69.64 Glucose 196 H Hemoglobin A1c 6.3 H Calcium 7.4 L Magnesium 2.0 Total Bilirubin 0.8 AST 193 H ALT 311 H Alkaline Phosphatase 74 Troponin I NT-Pro-B Natriuret Pep Total Protein 7.8 Albumin 2.7 L Lipase Procalcitonin COVID-19 Source SARS-CoV-2 (PCR) Influenza Type A (PCR) Influenza Type B (PCR) RSV (PCR) Add-On Test Request PAWSS Have you Been Recently Intoxicated or Drunk Within the Last 30 days?: No Have you Ever Experienced Previous Episodes of Alcohol Withdrawal?: No Have you ever Experienced Withdrawal Seizures?: No Have you ever Experienced Delirium Tremens(DT)s?: No Have you ever undergone Alcohol Rehabilitation Treatment (i.e, inpt ot outpatient treatment programs)?: No Have you ever Experienced Blackouts?: No Have you ever Combined Alcohol with other Downers within the last 90 days?: No Have you ever Combined Alcohol with any other Substance of Abuse during the last 90 days?: No Positive Blood Alcohol level on Presentation? [PCS.BAL]: No Evidence of Increased Autonomic Activity (i.e. HR>120, tremor, sweating, agitation, nausea)?: No Result: 0 Time Spent with Patient Time Spent with Patient: >50 minutes Time was spent: preparing to see the patient(eg.review tests), obtaining and/or reviewing separately otained hiistory, ordering medications,tests, procedures, referring, communicating with other health healthcare specialist, indepentently interpreting results, counseling the patient and care coordination
--- NOTE | 2025-04-18 13:22 | NUR.NOTE ---
Nursing Note: Extreme shortness of breath with minimal exertion observed. Pt transferred self from commode to bed with stand by assist. Very short of breath, recovered over 2-3 mins with bipap (self applied).
[2025-04-18] MEDS: Albuterol 2.5 MG/3 ML INH SOLN VIAL UPD (14:14)
[2025-04-18] MEDS: cefTRIAXone 2 GM/50 ML BAG IVPB (14:22)
[2025-04-19] VITALS (11 sets, daily range): BP systolic 131–139; BP diastolic 65–74; PULSE 78–94; RESP 16–24; TEMP 36.6–37.3; O2SAT 89–97
--- NOTE | 2025-04-19 | DI.US_ITS ---
Exam(s) US ABDOMEN LIMITED EXAM: US ABDOMEN LIMITED CLINICAL HISTORY: transaminitis , Hx of dilated gallbladder TECHNIQUE: Ultrasound abdomen performed using standard protocol. COMPARISON: US US ABDOMEN LIMITED from 01/30/[address] ABDOMEN PELVIS W from 02/07/2025 FINDINGS: PANCREAS: Normal where visualized. LIVER: Portions of the liver were poorly visualized due to the patient's body habitus. There does appear to be increased echogenicity of the liver suggesting fatty infiltration. The liver measures in 23.2 cm length. No evidence of a hepatic mass. GALLBLADDER:The gallbladder could not be evaluated on this examination. BILIARY SYSTEM:The common duct was not visualized on this examination. No intrahepatic biliary ductal dilation. RIGHT KIDNEY: Kidney is normal in size. No evidence of renal calculi. No evidence of hydronephrosis. No renal mass or cyst identified. ASCITES: None seen. IMPRESSION: 1. Suboptimal examination due the patient body habitus. 2. Hepatomegaly and hepatic steatosis. DATA REPOSITORY:
[2025-04-19] MEDS: DOXYCYCLINE 100 MG in Normal Saline 100 ML IVPB ×2 (01:46→14:55)
[2025-04-19] MEDS: Albuterol/Ipratropium 3 ML UPD VIAL UPD ×4 (04:00→21:40)
[2025-04-19] MEDS: Levothyroxine 100 MCG TAB 200 MCG PO (05:44)
[2025-04-19 07:15] LABS: Abs Immature Grans 0.04 10^3/uL (0.0-0.06); HCT 35.3 % (36.0-46.0); HGB 11.0 g/dL (11.2-15.7); Immature Grans % 0.4 %; MCH 23.2 pg (27.0-33.0); MCHC 31.2 % (32.0-36.0); MCV 74 fL (80-95); MPV 10.7 fL (8.0-11.0); Platelet Count 350 10^3/uL (130-400); RBC 4.75 10^6/uL (3.93-5.22); RDW 21.1 % (11.7-14.6); RDW-SD 55.5 fL; WBC 10.39 10^3/uL (4.4-10.8)
[2025-04-19 07:36] LABS: Magnesium 2.2 mg/dL (1.8-2.4)
[2025-04-19 07:40] LABS: ALT 425 U/L (14-59); AST 255 U/L (15-37); Albumin 2.5 g/dL (3.4-5.0); Alkaline Phosphatase 68 U/L (46-116); Anion Gap 6.4 mmol/L (3-11); BUN 19 mg/dL (7-18); Bilirubin, Total 0.8 mg/dL (0.2-1.0); CO2 34.6 mmol/L (21.0-32.0); Calcium 7.4 mg/dL (8.5-10.1); Chloride 96 mmol/L (98-107); Estimated GFR 80.21 (mL/min/1.73m2); Glucose 189 mg/dL (74-106); Potassium 3.2 mmol/L (3.5-5.1); Sodium 137 mmol/L (136-145); Total Protein 7.1 g/dL (6.4-8.2)
[2025-04-19 08:17] LABS: Anisocytosis 2+; Hypochromasia 1+; Microcytosis 2+
[2025-04-19] MEDS: Ascorbic Acid 500 MG TAB 1000 MG PO (08:18)
[2025-04-19] MEDS: Furosemide 100 MG/10 ML VIAL 80 MG IVP ×2 (08:18→16:45)
[2025-04-19] MEDS: Lactobacillus Acidophilus CAP 1 CAP PO (08:18)
[2025-04-19] MEDS: guaiFENesin 600 MG TABCR PO ×2 (08:18→21:32)
[2025-04-19] MEDS: predniSONE 20 MG TAB 40 MG PO (08:18)
[2025-04-19] MEDS: metOLazone 2.5 MG TAB PO (08:18)
[2025-04-19] MEDS: Sertraline 50 MG TAB PO (08:19)
[2025-04-19] MEDS: Enoxaparin 60 MG/0.6 ML SYR SC ×2 (08:19→21:32)
[2025-04-19] MEDS: Normal Saline Flush 10 ML SYR IVP ×3 (08:19→21:32)
--- NOTE | 2025-04-19 08:41 | PT.INTREAT ---
PT Notes Visit Reasons: Sepsis, Interstial pneumonia Date: 04/19/2025 PRECAUTIONS: Fall. standard Activity as tolerated. SUBJECTIVE: pt in bed when approached for therapy this morning. pt agreeable to participating with therapy session. ? VITALS: Monitored by nursing Therapeutic Activities [id number]: Direct one-on-one instruction in dynamic activities to improve functional performance. ?? BED MOBILITY/TRANSFERS? Rolling L/R: independent Supine-sit: ?independent? Sit-supine: ? independent? Sit-stand: ? independent? Stand-sit: ??independent ? Bed-Chair:? ?independent ? Chair-bed: independent Provided skilled cues and instruction on performance and technique throughout. Therapeutic Activities 10509 mins: instruction in dynamic activities with one on one patient contact by the provider to improve functional performance?as follows: ASSESSMENT:?Pt able to demonstrate safe transfers going from EOB to commode and vice versa. PLAN: Continue with balance training, global strengthening and general conditioning for improved safety, mobility and activity tolerance until pt is ready for DC. TREATMENT CODE/TIME: [id number] 15mins (7:50-8:05am)
--- NOTE | 2025-04-19 09:40 | W.PM.PROGNOT ---
Date of Service Date of service: 04/19/25 Time of Service: 09:40 Assessment and Plan Assessment and plan (1) Sepsis: Status: Resolved Assessment and plan: Resolved On admission WBC 15.41 with tachycardia HR up to 104, tachypnea RR 26 -Source respiratory WBC improved Blood Cx negative As per point 2 (2) Acute interstitial pneumonia: Status: Acute Assessment and plan: As per imaging on presentation Might be the etiology of point 1 with sick contact as per HPI URV panel negative Ongoing ceftriaxone and doxycycline - transition to oral at d/c Ongoing Mucinex, pulmonary toilet IS - acapella , scheduled and PRN nebs (3) COPD exacerbation: Status: Acute Assessment and plan: In the setting of PNA On oral prednisone- consider taper at d/c VBG negative for CO2 retention - showed metabolic alkalosis but improved s/p IV lasix in ED Improved symptoms with BIPAP with 28% Oxygen - no hypoxia Now weaned down to BIPAP as per home setting (4) Hypomagnesemia: Status: Acute Assessment and plan: Resolved s/p supplementation Mg in AM (5) Hypokalemia: Status: Acute Assessment and plan: K 3.2 and supplemented CMP in AM (6) Morbid obesity: Status: Acute Assessment and plan: BMI 60- previously deemed to cause hypoventilation A1C trending up now 6.3 Terzepatride considered but not covered w/o PA- will not pursue in the setting of transaminitis and gallbladder distention in 01/2025, as a know side effect of GLP-1 is pancreatitis which could be also triggered by gallstones- The patient should pursue GLP-1 pre-work-up and PA with PCP (7) Respiratory failure: Status: Acute Assessment and plan: No hypoxia, no hypercapnia and no acidosis but increased pressure on BIPAP and ongoing need Resolved - not continuous need for BIPAP at this time abck to home requirement (8) CHF (congestive heart failure): Status: Chronic Assessment and plan: No clear exacerbation of HFpEF with BNP is normal, no crackles , no worsening LEs edema but has bilat. exp. wheezing Ongoing home regimen Increased torsemide on Tuesday - will give IV lasix initially Transition to oral prior to discharge (9) Bronchitis: Status: Acute Assessment and plan: Seen in the ED on 04/15 and sent home on oral antibiotics and steroids but retuned with worsening symptoms Imaging suspicious for interstitial penumonia And as per point 2 (10) Left above-knee amputee: Status: Acute Assessment and plan: Wound care as per HH nursing -mepilex on distal AKA site Ulcer distal to L AKA Wound consult (11) Elevated liver enzymes: Status: Acute Assessment and plan: Up trend - will continue to monitor RUQ limited US Hepatitis panel R sided ABD pain palpation resolved - on admission: Lipase negative previous findings on 02/07/25: gallbladder is distended measuring 5 cm in diameter. At the time [facility] only recommended f/u, IVf and T bili trend T bili 0.8- continue to trend - if worsening might need GI consult pending US findings VS outpatient f/u (12) Heart failure with preserved ejection fraction: Status: Acute Assessment and plan: On home regimen IV diuretic then transtion to dosing as / torsemide was increased on Tuesday (13) Postmenopausal bleeding: Status: Acute Assessment and plan: Continue home medicine regimen (14) Atrial fibrillation: Assessment and plan: Hx of - SR on admission DVT prophylaxis on LMWH (15) Discharge planning issues: Status: Acute Assessment and plan: Home with PT RN Discussed with Dr. Reyes Subjective Subjective Patient reports: no new complaints, feels better, tolerating liquids well, tolerating a regular diet, bowel movement and shortness of breath (improving ); denies diarrhea, blood in stool, nausea, vomiting or fever Exam Narrative Exam Narrative: Constitutional Morbidly obese patient 69 yo female s/p left AKA with Mepilex on slow healing stump , in no acute distress, alert and oriented X4, neurologically intact, shallow breathing, clear upper lungs , decreased bases, no wheezing Distant S1-S2 regular, bilateral radial and right dorsalis pedis pulses are positive, bilateral lower extremity edema with left AKA with mepilex dressing dry clean and intact- non-infectious appearance to stump Abdomen is large, not distended, soft and non-tender, bowel sounds are present,moves all 4 extremities , RASS 0, congruent mood and normal affect. Psych Mood: congruent mood and anxious mood Affect: normal affect, labile affect and anxious affect Attitude: cooperative Thought Process: circumstantial Insight: limited Objective Last Vital Signs Temp 36.6 C 04/19/25 07:52 Pulse 80 04/19/25 07:52 Resp 16 04/19/25 07:52 BP 139/65 09/05/25 07:52 Pulse Ox 95 04/19/25 07:52 Laboratory Results - last 24 hr 04/18/25 04/19/25 06:10 06:32 WBC 10.39 RBC 4.75 Hgb 11.0 L Hct 35.3 L MCV 74 L MCH 23.2 L MCHC 31.2 L RDW 21.1 H Plt Count 350 MPV 10.7 Immature Gran % 0.4 Neutrophils % 81.0 Lymphocytes % 8.5 Monocytes % 10.0 Eosinophils % 0.0 Basophils % 0.1 Nucleated RBC % 0.0 Absolute Neutrophils 8.42 H Absolute Lymphocytes 0.88 L Absolute Monocytes 1.04 H Absolute Eosinophils 0.00 Absolute Basophils 0.01 RBC Morphology See Below Hypochromasia 1+ Anisocytosis 2+ Microcytosis 2+ Sodium 137 Potassium 3.2 L Chloride 96 L Carbon Dioxide 34.6 H Anion Gap 6.4 BUN 19 H Creatinine 0.8 Est GFR (CKD-EPI 2020) 80.21 Glucose 189 H Hemoglobin A1c 6.3 H Calcium 7.4 L Magnesium 2.2 Total Bilirubin 0.8 AST 255 H ALT 425 H Alkaline Phosphatase 68 Total Protein 7.1 Albumin 2.5 L PAWSS Have you Been Recently Intoxicated or Drunk Within the Last 30 days?: No Have you Ever Experienced Previous Episodes of Alcohol Withdrawal?: No Have you ever Experienced Withdrawal Seizures?: No Have you ever Experienced Delirium Tremens(DT)s?: No Have you ever undergone Alcohol Rehabilitation Treatment (i.e, inpt ot outpatient treatment programs)?: No Have you ever Experienced Blackouts?: No Have you ever Combined Alcohol with other Downers within the last 90 days?: No Have you ever Combined Alcohol with any other Substance of Abuse during the last 90 days?: No Positive Blood Alcohol level on Presentation? [PCS.BAL]: No Evidence of Increased Autonomic Activity (i.e. HR>120, tremor, sweating, agitation, nausea)?: No Result: 0 Time Spent with Patient Time Spent with Patient: >50 minutes Time was spent: preparing to see the patient(eg.review tests), obtaining and/or reviewing separately otained hiistory, ordering medications,tests, procedures, referring, communicating with other health customer care voice consultant, indepentently interpreting results, counseling the patient, care coordination and other
[2025-04-19] MEDS: POTASSIUM CHLORIDE 20 MEQ/100 ML BAG 50 MEQ IV_INF (10:33)
[2025-04-19] MEDS: Albuterol 2.5 MG/3 ML INH SOLN VIAL UPD ×2 (11:17→17:24)
--- NOTE | 2025-04-19 12:07 | W.NUTRFU ---
Date of service: 04/19/25 Time of Service: 14:28 Nutrition Note NOTE: Radha known to me from prior admissions. Last nutrition note Aug 2024 - since that time Radha underwent L AKA in Sep 2024. This admission being treated for interstitial PNA, sepsis, low mag and potassium, COPD exac/resp failure, chronic CHF, bronchitis, elevated LFT's . Hgb a1c 04/18 was 6.3% takes HF dose for jardiance. Radha aware of her obesity contributing to her medical concerns. I did offer outpatient guidance and support as has done in the past but Radha has not taken me up on this offer after multiple prior attempts. was able to visit with patient again today 04/22. She voiced her displeasure for the food while here and I took down comments to share for quality improvment. Will remain available for supporting patient with wt loss efforts once she feels she is ready for participating. Time Spent in Nutritional Counseling and Treatment: 5 min
--- NOTE | 2025-04-19 14:12 | PDOC.CMPRO ---
Date of service: 04/19/25 Time of Service: 14:12 Care Management Progress Note Progress Note Text Progress Note Text: Radha was lying in bed, playing on her phone, when CM met with her today. She was pleasant, but stated that she was feeling like a dish rag today. Her eyes did not look as bright as they usually do. She was feeling a bit down, because she usually bounces back a little quicker than this, but stated that she would just ride it out. Discharge Potential Discharge Needs: PCP F/U Appt Anticipated Barriers to Discharge: None Identified Patient/Family Education Needs: Review discharge instructions, discuss Ask Me Three Transportation: Other (Radha will sometimes require RCT, but often [facility] will come to get her.) Plan: Anticipate that Radha will discharge home once she is medically stable. She will f/u with Dr. Fernandez at her PCP office on 04/24 at 1:20pm, she will resume her HH RN, and continue per her plan of care. Radha will likely transport home in a private vehicle, but may need RCT. CM will continue to follow. Social Determinants of Health Screening Social Determinants of health last assessed in clinic: 04/19/25 Will the Patient Participate in the Screening?: Yes Do you worry about having a steady place to live?: no Problems where you live: no known problems In the past 12 months, have you had to go without electric, gas, oil or water in your home?: no 1. Within the past 12 months, we worried whether our food would run out before we got money to buy more.: Don't know/refused 2. Within the past 12 months, the food we bought just didn't last and we didn't have money to get more.: Don't know/refused Has lack of transportation kept you from medical appointments or from doing things needed for daily living?: no Has anyone in your life made you feel unsafe or unsupported?: no How hard is it for you to pay for the very basics like food, housing, medical care, and heating? Would you say it is:: Not hard at all Do you want help finding or keeping work or a job?: I do not need or want help If for any reason you need help with day-to-day activities such as bathing, preparing meals, shopping, managing finances, etc., do you get the help you need?: I don?t need any help How often do you feel lonely or isolated from those around you?: Never Do you speak a language other than [place] at home?: No Does the patient want assistance with any of the above?: No
[2025-04-19] MEDS: cefTRIAXone 2 GM/50 ML BAG IVPB (14:15)
[2025-04-19] MEDS: Potassium Chloride 20 MEQ TABCR 40 MEQ PO (14:15)
[2025-04-19] MEDS: Potassium Chloride 20 MEQ TABCR PO (21:32)
--- NOTE | 2025-04-19 23:06 | W.WOUNDCONS ---
Date of service: 04/19/25 Time of Service: 23:07 Wound Initial Evaluation Narrative Narrative: Morbid obese 69 yr female with 9 visits to the facility this year was admitted for sepsis on 04/18/25. PMH is significant for oxygen dependency secondary to chronic respiratory failure, COPD, CHF, DAVID, chronic bronchitis and tobacco abuse. An above the knee amputation on left after a fall in September 2024 resulted in a veronica-prosthetic femoral shaft fracture. Per the patient a wound vac was utilized on the amputation surgical site from September through December. The patient reports that the H/H nurse removed 3-4 stitches on March 07, 2025 with documented cell phone pictures. Today, there appears to be at least 1 intact stitch at the surgical site. The patient agreed to the wound consult and a photo consent was signed. Assistance with the photo was provided by MITESH Banerjee and MITESH Kaye. The patient weighs 170kg and the patient is 1.68m tall. The standard BMI calculation does not apply due to the AKA, so the BMI was adjusted 10% using the amputations calculator. The corrected BMI would be 66.9%. Allergies were reviewed, progress notes, and vital signs were also reviewed. Body Four View:  1. Above the knee amputation with the wound on the base of the stump Wound Left Base of Stump: Wound Type: Amputation Wound General Appearance: Sutures Intact Wound Bed Greatest Portion: Pale Light Oak Wound Surrounding Tissue Appearance: Light Oak and Edges Rolled Wound Drainage Amount: None Wound Drainage Odor: None/Absent Wound Topical Solution/Irrigant: Other (Skintegrity wound cleanser) Additional Other Comments: At least 1 intact suture is present Pain Additional Other Comments: patient denies pain at amputation site Wound Summary Wound Summary: Photo below of left above the knee amputated stump with at least 1 intact suture. There is redness where moisture from the wound has irritated surrounding skin. The patient reports that the H/H nurse tucks a gauze pad in there. Photo Photo: Treatment/Dressing Change Cleanse With: Other (Skintegrity wound cleanser.) Dressing Types: Gauze (2x2 gauze sponge tucked into skin fold to assist with moisture) and Mepilex (contact layer) (Mepilex applied to area to secure the gauze sponge) Nutrition Education Reviewed Nutrition Education: Yes Note: Radha reports having liverwurst daily for a lunch meat. Recomendation Recomendation:: The suture(s) need to be removed Continue with daily dressing removal [place]wood wound with wound cleanser and allow to dwell for 2 minutes Pat dry with gauze Insert dry gauze to skinfold to assist with moisture wicking Cover area with a Mepilex to secure the gauze and protect the wound from contaminants Physcian/Nurse Practioner Notified: Yes (Report given to M/S cc)
[2025-04-20] VITALS (9 sets, daily range): BP systolic 101–128; BP diastolic 54–64; PULSE 63–84; RESP 16–20; TEMP 37.4–37.5; O2SAT 90–95
[2025-04-20] MEDS: DOXYCYCLINE 100 MG in Normal Saline 100 ML IVPB ×2 (01:57→14:24)
[2025-04-20] MEDS: Albuterol/Ipratropium 3 ML UPD VIAL UPD ×4 (04:11→21:32)
[2025-04-20] MEDS: Levothyroxine 100 MCG TAB 200 MCG PO (06:18)
[2025-04-20 06:59] LABS: Abs Immature Grans 0.04 10^3/uL (0.0-0.06); HCT 36.8 % (36.0-46.0); HGB 11.7 g/dL (11.2-15.7); Immature Grans % 0.4 %; MCH 23.5 pg (27.0-33.0); MCHC 31.8 % (32.0-36.0); MCV 74 fL (80-95); MPV 10.4 fL (8.0-11.0); Platelet Count 328 10^3/uL (130-400); RBC 4.97 10^6/uL (3.93-5.22); RDW 20.9 % (11.7-14.6); RDW-SD 55.0 fL; WBC 10.65 10^3/uL (4.4-10.8)
[2025-04-20 07:05] LABS: Anisocytosis 2+; Microcytosis 2+
[2025-04-20 07:22] LABS: Magnesium 2.0 mg/dL (1.8-2.4)
[2025-04-20 07:28] LABS: ALT 426 U/L (14-59); AST 205 U/L (15-37); Albumin 2.5 g/dL (3.4-5.0); Alkaline Phosphatase 71 U/L (46-116); Anion Gap 5.5 mmol/L (3-11); BUN 21 mg/dL (7-18); Bilirubin, Total 1.0 mg/dL (0.2-1.0); CO2 36.5 mmol/L (21.0-32.0); Calcium 7.9 mg/dL (8.5-10.1); Chloride 95 mmol/L (98-107); Estimated GFR 94.15 (mL/min/1.73m2); Glucose 93 mg/dL (74-106); Potassium 3.0 mmol/L (3.5-5.1); Sodium 137 mmol/L (136-145); Total Protein 7.0 g/dL (6.4-8.2)
[2025-04-20] MEDS: Ascorbic Acid 500 MG TAB 1000 MG PO (10:00)
[2025-04-20] MEDS: predniSONE 20 MG TAB 40 MG PO (10:01)
[2025-04-20] MEDS: guaiFENesin 600 MG TABCR PO ×2 (10:02→19:41)
[2025-04-20] MEDS: Sertraline 50 MG TAB PO (10:02)
[2025-04-20] MEDS: Torsemide 20 MG TAB 40 MG PO ×2 (10:02→19:41)
[2025-04-20] MEDS: Fluticasone NASAL SPRAY 16 GM BTL NS (10:03)
[2025-04-20] MEDS: Enoxaparin 60 MG/0.6 ML SYR SC ×2 (10:03→21:28)
[2025-04-20] MEDS: Normal Saline Flush 10 ML SYR IVP ×2 (10:05→19:45)
[2025-04-20] MEDS: Lactobacillus Acidophilus CAP 1 CAP PO (10:06)
[2025-04-20] MEDS: Nystatin POWDER 15 GM JAR TP ×2 (10:06→19:48)
[2025-04-20] MEDS: Potassium Chloride 20 MEQ TABCR PO ×3 (11:51→19:41)
--- NOTE | 2025-04-20 12:55 | PGE_ITS ---
Date of Service Date of service: 04/20/25 Time of Service: 12:55 Assessment and Plan Assessment and plan (1) Sepsis: Status: Resolved Assessment and plan: Resolved On admission WBC 15.41 with tachycardia HR up to 104, tachypnea RR 26 -Source respiratory WBC improved Blood Cx negative As per point 2 (2) Acute interstitial pneumonia: Status: Acute Assessment and plan: continue ceftriaxone and doxycycline -day 2/5 Mucinex, pulmonary toilet IS - acapella , scheduled and PRN nebs (3) COPD exacerbation: Status: Acute Assessment and plan: In the setting of PNA On oral prednisone- consider taper at d/c continue inhalers (4) Hypomagnesemia: Status: Acute Assessment and plan: Resolved s/p supplementation (5) Hypokalemia: Status: Acute Assessment and plan: K 3.1 continue supplementation, increased dose (6) Morbid obesity: Status: Acute Assessment and plan: BMI 60- previously deemed to cause hypoventilation A1C trending up now 6.3 Terzepatride considered but not covered w/o PA- will not pursue in the setting of transaminitis and gallbladder distention in 01/2025, as a know side effect of GLP-1 is pancreatitis which could be also triggered by gallstones- The patient should pursue GLP-1 pre-work-up and PA with PCP (7) Respiratory failure: Status: Resolved Assessment and plan: No hypoxia, no hypercapnia and no acidosis but increased pressure on BIPAP and ongoing need Resolved - not continuous need for BIPAP at this time abck to home requirement (8) Left above-knee amputee: Status: Acute Assessment and plan: Wound care as per nursing -mepilex on distal AKA site Ulcer distal to L AKA Wound consult (9) Elevated liver enzymes: Status: Acute Assessment and plan: Up trend - will continue to monitor RUQ limited US Hepatitis panel R sided ABD pain palpation resolved - on admission: Lipase negative previous findings on 02/07/25: gallbladder is distended measuring 5 cm in diameter. At the time [facility] [place] [facility] [place] recommended f/u, IVf and T bili trend T bili 0.8- continue to trend - if worsening might need GI consult pending US findings VS outpatient f/u (10) Heart failure with preserved ejection fraction: Status: Acute Assessment and plan: On home regimen Euvolemic, with BNP normal, continue Zaroxolyn and torsemide (11) Postmenopausal bleeding: Status: Acute Assessment and plan: Continue home medicine regimen (12) Atrial fibrillation: Assessment and plan: Hx of - SR on admission DVT prophylaxis on LMWH (13) Discharge planning issues: Status: Acute Assessment and plan: Home with PT RN Discussed with Dr. Reyes Subjective Subjective Patient reports: no new complaints Exam Const Nutritional Appearance: obese morbidly obese Orientation: alert, awake and oriented x3 HENMT Head: normal to inspection, normocephalic and atraumatic Mouth: oral mucosae normal Eyes General: appearance normal, both eyes and all related structures Resp Effort & Inspection: normal respiratory effort Auscultation: diminished lung sounds bilaterally Cardio Rate: regular rate Rhythm: regular rhythm GI Inspection: large pannus and obesity Palpation: soft Extrem General: edema (Lymphedema) Laterality: bilateral Psych Mental Status: mental status grossly normal Speech and Movement: speech and movement normal Mood: congruent mood Affect: irritable affect Objective Last Vital Signs Temp 37.4 C 04/20/25 09:58 Pulse 82 04/20/25 10:16 Resp 18 04/20/25 10:16 BP 101/54 L 04/20/25 09:58 Pulse Ox 90 L 04/20/25 10:16 Laboratory Results - last 24 hr 04/20/25 06:25 WBC 10.65 RBC 4.97 Hgb 11.7 Hct 36.8 MCV 74 L MCH 23.5 L MCHC 31.8 L RDW 20.9 H Plt Count 328 MPV 10.4 Immature Gran % 0.4 Neutrophils % 70.3 Lymphocytes % 15.8 Monocytes % 12.7 Eosinophils % 0.6 Basophils % 0.2 Nucleated RBC % 0.0 Absolute Neutrophils 7.50 H Absolute Lymphocytes 1.68 Absolute Monocytes 1.35 H Absolute Eosinophils 0.06 Absolute Basophils 0.02 RBC Morphology See Below Anisocytosis 2+ Microcytosis 2+ Sodium 137 Potassium 3.0 L Chloride 95 L Carbon Dioxide 36.5 H Anion Gap 5.5 BUN 21 H Creatinine 0.7 Est GFR (CKD-EPI 2020) 94.15 Glucose 93 Calcium 7.9 L Magnesium 2.0 Total Bilirubin 1.0 AST 205 H ALT 426 H Alkaline Phosphatase 71 Total Protein 7.0 Albumin 2.5 L PAWSS Have you Been Recently Intoxicated or Drunk Within the Last 30 days?: No Have you Ever Experienced Previous Episodes of Alcohol Withdrawal?: No Have you ever Experienced Withdrawal Seizures?: No Have you ever Experienced Delirium Tremens(DT)s?: No Have you ever undergone Alcohol Rehabilitation Treatment (i.e, inpt ot outpatient treatment programs)?: No Have you ever Experienced Blackouts?: No Have you ever Combined Alcohol with other Downers within the last 90 days?: No Have you ever Combined Alcohol with any other Substance of Abuse during the last 90 days?: No Positive Blood Alcohol level on Presentation? [PCS.BAL]: No Evidence of Increased Autonomic Activity (i.e. HR>120, tremor, sweating, agita tion, nausea)?: No Result: 0 Time Spent with Patient Time Spent with Patient: 35-49 minutes Time was spent: preparing to see the patient(eg.review tests), obtaining and/or reviewing separately otained hiistory, ordering medications,tests, procedures, indepentently interpreting results and counseling the patient
[2025-04-20] MEDS: cefTRIAXone 2 GM/50 ML BAG IVPB (14:09)
[2025-04-21] VITALS (11 sets, daily range): BP systolic 122–141; BP diastolic 66–75; PULSE 75–85; RESP 20–26; TEMP 36.5–37.4; O2SAT 91–95
[2025-04-21] MEDS: DOXYCYCLINE 100 MG in Normal Saline 100 ML IVPB ×2 (01:32→14:31)
[2025-04-21] MEDS: Albuterol/Ipratropium 3 ML UPD VIAL UPD ×4 (04:00→22:20)
[2025-04-21] MEDS: Levothyroxine 100 MCG TAB 200 MCG PO (07:09)
[2025-04-21] MEDS: Ascorbic Acid 500 MG TAB 1000 MG PO (09:51)
[2025-04-21] MEDS: Torsemide 20 MG TAB 40 MG PO ×2 (09:51→17:24)
[2025-04-21] MEDS: Potassium Chloride 20 MEQ TABCR PO ×3 (09:51→21:00)
[2025-04-21] MEDS: Lactobacillus Acidophilus CAP 1 CAP PO (09:52)
[2025-04-21] MEDS: predniSONE 20 MG TAB 40 MG PO (09:52)
[2025-04-21] MEDS: Enoxaparin 60 MG/0.6 ML SYR SC ×2 (09:52→21:01)
[2025-04-21] MEDS: Sertraline 50 MG TAB PO (09:52)
[2025-04-21] MEDS: guaiFENesin 600 MG TABCR PO ×2 (09:52→21:00)
[2025-04-21] MEDS: Normal Saline Flush 10 ML SYR IVP ×5 (09:53→21:00)
--- NOTE | 2025-04-21 11:38 | PGE_ITS ---
Date of Service Date of service: 04/21/25 Time of Service: 11:38 Assessment and Plan Assessment and plan (1) Sepsis: Status: Resolved Assessment and plan: Resolved On admission WBC 15.41 with tachycardia HR up to 104, tachypnea RR 26 -Source respiratory WBC improved Blood Cx negative (2) Acute interstitial pneumonia: Status: Acute Assessment and plan: continue ceftriaxone and doxycycline -day 3/5 Mucinex, pulmonary toilet IS - acapella , scheduled and PRN nebs (3) COPD exacerbation: Status: Acute Assessment and plan: In the setting of PNA On oral prednisone- consider taper at d/c continue inhalers (4) Hypomagnesemia: Status: Acute Assessment and plan: Resolved s/p supplementation (5) Hypokalemia: Status: Acute Assessment and plan: K 3.1 continue supplementation, increased dose (6) Morbid obesity: Status: Acute Assessment and plan: BMI 60- previously deemed to cause hypoventilation A1C trending up now 6.3 Terzepatride considered but not covered w/o PA- will not pursue in the setting of transaminitis and gallbladder distention in 01/2025, as a know side effect of GLP-1 is pancreatitis which could be also triggered by gallstones- The patient should pursue GLP-1 pre-work-up and PA with PCP (7) Respiratory failure: Status: Resolved Assessment and plan: No hypoxia, no hypercapnia and no acidosis but increased pressure on BIPAP and ongoing need Resolved - not continuous need for BIPAP at this time abck to home requirement (8) Left above-knee amputee: Status: Acute Assessment and plan: Wound care as per nursing -mepilex on distal AKA site Ulcer distal to L AKA Wound consult (9) Elevated liver enzymes: Status: Acute Assessment and plan: Up trend - will continue to monitor RUQ limited US Hepatitis panel R sided ABD pain palpation resolved - on admission: Lipase negative previous findings on 02/07/25: gallbladder is distended measuring [address] At the time [facility] [place] [facility] only recommended f/u, IVf and T bili trend T bili 0.8- continue to trend - if worsening might need GI consult pending US findings VS outpatient f/u (10) Heart failure with preserved ejection fraction: Status: Acute Assessment and plan: On home regimen Euvolemic, with BNP normal, continue Zaroxolyn and torsemide (11) Postmenopausal bleeding: Status: Acute Assessment and plan: Continue home medicine regimen (12) Atrial fibrillation: Assessment and plan: Hx of - SR on admission DVT prophylaxis on LMWH (13) Discharge planning issues: Status: Acute Assessment and plan: Home with PT RN Discussed with Dr. Reyes Subjective Subjective Patient reports: no new complaints, feels better, tolerating liquids well, tolerating a regular diet, shortness of breath (slowly improving, at baseline oxygen) and afebrile Exam Const Nutritional Appearance: obese morbidly obese Orientation: alert, awake and oriented x3 HENMT Head: normal to inspection, normocephalic and atraumatic Mouth: oral mucosae normal Eyes General: appearance normal, both eyes and all related structures Resp Effort & Inspection: normal respiratory effort Auscultation: diminished lung sounds bilaterally Cardio Rate: regular rate Rhythm: regular rhythm GI Inspection: large pannus and obesity Palpation: soft Extrem General: edema (Lymphedema) Laterality: bilateral Psych Mental Status: mental status grossly normal Speech and Movement: speech and movement normal Mood: congruent mood Affect: irritable affect Objective Last Vital Signs Temp 36.6 C 04/21/25 11:11 Pulse 85 04/21/25 11:11 Resp 20 04/21/25 11:11 BP 135/72 04/21/25 11:11 Pulse Ox 93 04/21/25 11:11 PAWSS Have you Been Recently Intoxicated or Drunk Within the Last 30 days?: No Have you Ever Experienced Previous Episodes of Alcohol Withdrawal?: No Have you ever Experienced Withdrawal Seizures?: No Have you ever Experienced Delirium Tremens(DT)s?: No Have you ever undergone Alcohol Rehabilitation Treatment (i.e, inpt ot outpatient treatment programs)?: No Have you ever Experienced Blackouts?: No Have you ever Combined Alcohol with other Downers within the last 90 days?: No Have you ever Combined Alcohol with any other Substance of Abuse during the last 90 days?: No Positive Blood Alcohol level on Presentation? [PCS.BAL]: No Evidence of Increased Autonomic Activity (i.e. HR>120, tremor, sweating, agitation, nausea)?: No Result: 0 Time Spent with Patient Time Spent with Patient: 35-49 minutes Time was spent: preparing to see the patient(eg.review tests), obtaining and/or reviewing separately otained hiistory, ordering medications,tests, procedures, indepentently interpreting results and counseling the patient
[2025-04-21] MEDS: cefTRIAXone 2 GM/50 ML BAG IVPB (13:36)
[2025-04-21] MEDS: Nystatin POWDER 15 GM JAR TP (21:01)
[2025-04-22] VITALS (7 sets, daily range): BP systolic 116–130; BP diastolic 68–82; PULSE 73–84; RESP 16–20; TEMP 36.4–37.5; O2SAT 94–97
[2025-04-22] MEDS: DOXYCYCLINE 100 MG in Normal Saline 100 ML IVPB (02:58)
[2025-04-22] MEDS: Acetaminophen 325 MG TAB 650 MG PO (03:06)
[2025-04-22] MEDS: Albuterol/Ipratropium 3 ML UPD VIAL UPD ×2 (03:39→10:17)
[2025-04-22] MEDS: Levothyroxine 100 MCG TAB 200 MCG PO (04:54)
[2025-04-22] MEDS: Potassium Chloride 20 MEQ TABCR PO (09:31)
[2025-04-22] MEDS: Ascorbic Acid 500 MG TAB 1000 MG PO (09:31)
[2025-04-22] MEDS: Lactobacillus Acidophilus CAP 1 CAP PO (09:31)
[2025-04-22] MEDS: Torsemide 20 MG TAB 40 MG PO (09:31)
[2025-04-22] MEDS: predniSONE 20 MG TAB 40 MG PO (09:32)
[2025-04-22] MEDS: Nystatin POWDER 15 GM JAR TP (09:32)
[2025-04-22] MEDS: Sertraline 50 MG TAB PO (09:32)
[2025-04-22] MEDS: Polyethylene Glycol 3350 17 GM PACKET PO (09:32)
[2025-04-22] MEDS: guaiFENesin 600 MG TABCR PO (09:32)
[2025-04-22] MEDS: Enoxaparin 60 MG/0.6 ML SYR SC (09:33)
[2025-04-22] MEDS: Fluticasone NASAL SPRAY 16 GM BTL NS (09:38)
--- NOTE | 2025-04-22 10:15 | W.PM.PROGNOT ---
Date of Service Date of service: 04/22/25 Time of Service: 10:15 Assessment and Plan Assessment and plan (1) Sepsis: Status: Resolved Assessment and plan: Resolved On admission WBC 15.41 with tachycardia HR up to 104, tachypnea RR 26 -Source respiratory WBC improved Blood Cx negative (2) Acute interstitial pneumonia: Status: Acute Assessment and plan: continue ceftriaxone and doxycycline -day 3/5 Mucinex, pulmonary toilet IS - acapella , scheduled and PRN nebs (3) COPD exacerbation: Status: Acute Assessment and plan: In the setting of PNA On oral prednisone- consider taper at d/c continue inhalers (4) Hypomagnesemia: Status: Acute Assessment and plan: Resolved s/p supplementation (5) Hypokalemia: Status: Acute Assessment and plan: K 3.1 continue supplementation, increased dose (6) Morbid obesity: Status: Acute Assessment and plan: BMI 60- previously deemed to cause hypoventilation A1C trending up now 6.3 Terzepatride considered but not covered w/o PA- will not pursue in the setting of transaminitis and gallbladder distention in 01/2025, as a know side effect of GLP-1 is pancreatitis which could be also triggered by gallstones- The patient should pursue GLP-1 pre-work-up and PA with PCP (7) Respiratory failure: Status: Resolved Assessment and plan: No hypoxia, no hypercapnia and no acidosis but increased pressure on BIPAP and ongoing need Resolved - not continuous need for BIPAP at this time abck to home requirement (8) Left above-knee amputee: Status: Acute Assessment and plan: Wound care as per nursing -mepilex on distal AKA site Ulcer distal to L AKA Wound consult (9) Elevated liver enzymes: Status: Acute Assessment and plan: Up trend - will continue to monitor RUQ limited US Hepatitis panel R sided ABD pain palpation resolved - on admission: Lipase negative previous findings on 02/07/25: gallbladder is distended measuring 5 cm in diameter. At the time [facility] [place] [facility] [place] recommended f/u, IVf and T bili trend T bili 0.8- continue to trend - if worsening might need GI consult pending US findings VS outpatient f/u (10) Heart failure with preserved ejection fraction: Status: Acute Assessment and plan: On home regimen Euvolemic, with BNP normal, continue Zaroxolyn and torsemide (11) Postmenopausal bleeding: Status: Acute Assessment and plan: Continue home medicine regimen (12) Atrial fibrillation: Assessment and plan: Hx of - SR on admission DVT prophylaxis on LMWH (13) Discharge planning issues: Status: Acute Assessment and plan: Home with PT RN Discussed with Dr. Reyes Objective Last Vital Signs Temp 36.7 C 04/22/25 08:15 Pulse 73 04/22/25 08:15 Resp 17 04/22/25 08:15 BP 118/68 04/22/25 08:15 Pulse Ox 94 04/22/25 08:15 PAWSS Have you Been Recently Intoxicated or Drunk Within the Last 30 days?: No Have you Ever Experienced Previous Episodes of Alcohol Withdrawal?: No Have you ever Experienced Withdrawal Seizures?: No Have you ever Experienced Delirium Tremens(DT)s?: No Have you ever undergone Alcohol Rehabilitation Treatment (i.e, inpt ot outpatient treatment programs)?: No Have you ever Experienced Blackouts?: No Have you ever Combined Alcohol with other Downers within the last 90 days?: No Have you ever Combined Alcohol with any other Substance of Abuse during the last 90 days?: No Positive Blood Alcohol level on Presentation? [PCS.BAL]: No Evidence of Increased Autonomic Activity (i.e. HR>120, tremor, sweating, agitation, nausea)?: No Result: 0
[2025-04-22 10:38] LABS: Abs Immature Grans 0.10 10^3/uL (0.0-0.06); HCT 41.1 % (36.0-46.0); HGB 13.0 g/dL (11.2-15.7); Immature Grans % 0.7 %; MCH 23.4 pg (27.0-33.0); MCHC 31.6 % (32.0-36.0); MCV 74 fL (80-95); MPV 10.3 fL (8.0-11.0); Platelet Count 324 10^3/uL (130-400); RBC 5.56 10^6/uL (3.93-5.22); RDW 20.6 % (11.7-14.6); RDW-SD 53.7 fL; WBC 13.37 10^3/uL (4.4-10.8)
[2025-04-22 10:46] LABS: Hepatitis A Antibody IgM Negative (Negative); Hepatitis C Ab w Rflx HCV PCR Negative (Negative)
[2025-04-22 11:02] LABS: Anisocytosis 2+; Microcytosis 2+
[2025-04-22 11:06] LABS: ALT 329 U/L (14-59); AST 108 U/L (15-37); Albumin 2.6 g/dL (3.4-5.0); Alkaline Phosphatase 81 U/L (46-116); Anion Gap 4.7 mmol/L (3-11); BUN 13 mg/dL (7-18); Bilirubin, Total 1.1 mg/dL (0.2-1.0); CO2 38.3 mmol/L (21.0-32.0); Calcium 6.9 mg/dL (8.5-10.1); Chloride 93 mmol/L (98-107); Estimated GFR 94.15 (mL/min/1.73m2); Glucose 108 mg/dL (74-106); Sodium 136 mmol/L (136-145); Total Protein 7.1 g/dL (6.4-8.2)
[2025-04-22 11:17] LABS: Potassium 2.7 mmol/L (3.5-5.1)
--- NOTE | 2025-04-22 12:04 | DSE_ITS ---
Date of service: 04/22/25 Time of Service: 12:06 DS: Diagnosis Discharge Diagnosis (1) Sepsis: Status: Resolved (2) Acute interstitial pneumonia: Status: Acute (3) COPD exacerbation: Status: Acute (4) Hypomagnesemia: Status: Acute (5) Hypokalemia: Status: Acute (6) Morbid obesity: Status: Acute (7) Respiratory failure: Status: Resolved (8) Left above-knee amputee: Status: Acute (9) Elevated liver enzymes: Status: Acute (10) Heart failure with preserved ejection fraction: Status: Acute (11) Postmenopausal bleeding: Status: Acute (12) Atrial fibrillation: (13) Discharge planning issues: Status: Acute Discharge Plan Disposition Patient Disposition: Home W/Home Health Services Condition: Improving Discharge Details Reason For Visit: Sepsis, Interstial pneumonia Admit Date/Time: 04/17/25 14:42 Admit Provider: Juan Cesar Attending Provider: Juan Cesar Primary Care Provider: Alphonso Murphy Hospital Course Hospital Course: This 69 years old morbidly obese female patient with a past medical history significant for COPD, HFpEF , atrial fibrillation, chronic respiratory failure on 3 L of oxygen at baseline presented to the ED at [facility] today for evaluation of increased cough and sputum production and reports of midsternal chest pain with cough, chills, worsening shortness of breath after being seen on 04/15/2025 in the ED and discharged home on increased dosing of torsemide. On presentation to the emergency room the patient was tachycardic tachypneic not hypoxic and normotensive. Workup in the ED was positive for leukocytosis, hypokalemia hypocalcemia , mild transaminitis and hypomagnesemia at 1.6. Chest x-ray was suspicious for interstitial pneumonia versus pulmonary edema In the ED the patient received nebulizer treatments, IV methylprednisolone and IV ceftriaxone and doxycycline as well as IV electrolyte supplementation. Ongoing BiPAP initiated in the ED. The patient was admitted to the medical floor by the hospitalist team for evaluation management of sepsis, in the setting of pneumonia and COPD exacerbation as well as fluid overload, hypokalemia, hypomagnesemia. The patient continued to receive ceftriaxone, doxycycline and diuretics IV with later transition to oral medicines. Steroids transitioned to oral dosing. Hepatitis panel was negative, the patient clinically improved and was hemodynamically stable and afebrile, at baseline oxygen requirement on the day of discharge. The patient will be discharged home with resumption of home health nursing. Follow-up with home PCP within 7 days of discharge please. Recommendation for PCP follow-up: CMP needed Consider GI/ hepatology referral: Imaging -increased echogenicity of the liver suggesting fatty infiltration. The liver measures in 23.2 cm length. No evidence of a hepatic mass. GLP-1 therapy s/p normalized LFT's Surgical referral to [facility] - ? imbedded sutures Discussed with Dr. Reyes Recommendations for Follow Up Recommended tests to be ordered by follow up provider: CMP Home Meds and New Rx's Prescriptions: New guaifenesin [Mucus Relief ER] 600 mg Tablet Extended Release 12hr 600 mg PO BID Qty: 6 0RF prednisone 20 mg Tablet 40 mg PO DAILY Qty: 8 0RF Rx Instructions: Taper Take 40 mg PO X 2 days then 20 mg PO X 4 days then 10 mg PO X 4 days cefpodoxime 200 mg tablet 200 mg PO BID Qty: 4 0RF Rx Instructions: must administer with a meal/food doxycycline monohydrate 100 mg capsule 100 mg PO BID Qty: 4 0RF Continued albuterol sulfate 90 mcg/actuation HFA aerosol inhaler 1 - 2 puff Inhalation Q6H PRN Qty: 1 11RF fluticasone propionate [Flonase Allergy Relief] 50 mcg/actuation spray,suspension 1 spray NS DAILY Qty: 1 8RF potassium chloride [Klor-Con M20] 20 mEq tablet,ER particles/crystals 20 meq PO DAILY Qty: 90 3RF alclometasone 0.05 % cream 1 applic topical BID PRN (Reason: itching) Qty: 45 1RF gabapentin 300 mg capsule 600 mg PO TID PRN levothyroxine 200 mcg tablet 200 mcg PO DAILY Qty: 90 3RF ascorbic acid (vitamin C) 1,000 MG tablet 1,000 mg PO DAILY BiPAP Inhalation Gas 5 l IN DIRECTED Rx Instructions: sleep apnea ([facility] sleep lab 2012) uses with oxygen betamethasone, augmented 0.05 % lotion 1 applic topical BID PRN (Reason: allergic reaction) Qty: 60 2RF oxygen Inhalation 3 l Intranasal DIRECTED Patient Comments: Continuous and uses with bipap Rx Instructions: 3L/NC continuous pantoprazole 20 mg tablet,delayed release (DR/EC) 20 mg PO DAILY Qty: 90 3RF Rx Instructions: 04/13/23 Per GI. -hb sertraline 50 mg tablet 50 mg PO DAILY Qty: 90 3RF metolazone 2.5 mg tablet 2.5 mg PO .q tues/frid Qty: 20 2RF ketoconazole 2 % cream 1 applic topical BID PRN (Reason: facial rash) Qty: 60 1RF Jardiance 10 mg tablet 10 mg PO QAM Qty: 90 3RF torsemide 20 mg tablet 40 mg PO BID Qty: 360 3RF norethindrone acetate [Gallifrey] 5 mg tablet See Rx Instructions .ROUTE .COMPLEX Qty: 180 0RF Dose Instruction: TAKE TWO TABLETS BY MOUTH TWICE A DAY Rx Instructions: TAKE TWO TABLETS BY MOUTH TWICE A DAY lidocaine 5 % gel 1 applic topical DAILY PRN (Reason: dressing changes) Qty: 30 2RF prochlorperazine maleate [Compazine] 5 mg tablet 5 mg PO QID PRNQty: 10 0RF nystatin 100,000 unit/gram powder 1 applic TP BID Qty: 30 5RF BiomePRO 50 billion cell capsule,delayed release(DR/EC) 1 cap PO DAILY Qty: 4 0RF Rx Instructions: Take 3 hours apart form any antibiotics ipratropium-albuterol 0.5 mg-3 mg(2.5 mg base)/3 mL solution for nebulization 3 ml inhalation Q6H PRN (Reason: shortness of breath or wheezing) Qty: 90 0RF spironolactone 25 mg Tablet 25 mg PO DAILY Qty: 30 0RF Discontinued furosemide 80 mg tablet 80 mg PO BID@0830,1600 Qty: 180 3RF doxycycline hyclate 100 mg capsule 100 mg PO BID Qty: 10 0RF prednisone 20 mg tablet 40 mg PO DAILY Qty: 10 0RF Discharge Instructions Referrals: Alphonso Murphy MD [Primary Care Provider, Medicine] Referral Note: Follow-up with 7 days of discharge Activity:: Activity as Tolerated Equipment/Supplies:: W/C Diet:: heart healthy diabetic Discharge Orders Discharge Orders: Discharge Order (Routine); Ordered 04/22/25 Ordered By: Zoila De La Garza DS: Summary Time Spent with Patient providing and/or coordinating discharge services: Greater than 30 minutes Status at Discharge Functional status at discharge: wheelchair bound Overall status at discharge: patient is progressing back to baseline Mental Status: mental status grossly normal Speech and Movement: speech and movement normal Mood: congruent mood and anxious mood Affect: normal affect, labile affect and anxious affect Quality:SDOH Health Related Social Needs: Health related social needs material hardship Health related social needs details Pt refuses to answ er questions Exam Narrative Exam Narrative: Constitutional Morbidly obese patient 69 yo female s/p left AKA with Mepilex on slow healing stump , in no acute distress, alert and oriented X4, neurologically intact, shallow breathing, clear upper lungs , decreased bases, no wheezing Distant S1-S2 regular, bilateral radial and right dorsalis pedis pulses are positive, bilateral lower extremity edema with left AKA with mepilex dressing dry clean and intact- non-infectious appearance to stump Abdomen is large, not distended, soft and non-tender, bowel sounds are present,moves all 4 extremities , RASS 0, congruent mood and normal affect. Psych Mental Status: mental status grossly normal Speech and Movement: speech and movement normal Mood: congruent mood and anxious mood Affect: normal affect, labile affect and anxious affect Attitude: cooperative Thought Process: circumstantial Insight: limited DS: Data Vitals/I&O Vitals and I&O: Vital Signs Temperature 36.4 C L 04/22/25 11:49 Temperature Source Temporal Artery Scan 04/22/25 11:49 Pulse 80 04/22/25 11:49 Pulse Rhythm Regular 04/17/25 17:59 Pulse 87 04/17/25 15:08 Respiratory Rate 17 04/22/25 11:49 Respiratory Effort Normal 04/17/25 17:59 Respiratory Depth Normal 04/17/25 17:59 Respiratory Pattern Tachypnea 04/17/25 17:59 Blood Pressure 116/77 04/22/25 11:49 Blood Pressure Mean 90 04/22/25 11:49 Pulse Oximetry 95 04/22/25 11:49 Oxygen Delivery Method Nasal Cannula 04/22/25 11:49 Oxygen Flow Rate 3 04/22/25 11:49 Fraction of Inspired Oxygen (FIO2) 28 04/17/25 16:21 Pain Level 0 04/22/25 11:49 Comment pt refused vitals at 1500 04/21/25 15:42 Intake & Output 04/21/25 04/22/25 04/22/25 23:59 11:59 23:59 Intake Total 350 / 460 100 / 100 Output Total 1200 / 2400 800 / 800 Balance -850 / -1940 -700 / -700 Intake: IV 150 / 260 100 / 100 Oral 200 / 200 Output: Urine 1200 / 2400 800 / 800 Other: Urine Color Yellow Dark Anay Urine Appearance Clear Clear Urine Odor Strong Strong Data Completed and Pending Labs on day of discharge: Labs from last 24 hours 04/22/25 04/19/25 10:28 14:10 WBC 13.37 H RBC 5.56 H Hgb 13.0 Hct 41.1 MCV 74 L MCH 23.4 L MCHC 31.6 L RDW 20.6 H Plt Count 324 MPV 10.3 Immature Gran % 0.7 Neutrophils % 71.7 Lymphocytes % 14.8 Monocytes % 9.9 Eosinophils % 2.8 Basophils % 0.1 Nucleated RBC % 0.0 Absolute Neutrophils 9.59 H Absolute Lymphocytes 1.98 Absolute Monocytes 1.32 H Absolute Eosinophils 0.37 Absolute Basophils 0.01 RBC Morphology See Below Anisocytosis 2+ Microcytosis 2+ Sodium 136 Potassium 2.7 L* Chloride 93 L Carbon Dioxide 38.3 H Anion Gap 4.7 BUN 13 Creatinine 0.7 Est GFR (CKD-EPI 2020) 94.15 Glucose 108 H Calcium 6.9 L Total Bilirubin 1.1 H AST 108 H ALT 329 H Alkaline Phosphatase 81 Total Protein 7.1 Albumin 2.6 L Hepatitis A IgM Ab Negative Hep Bs Antigen Negative Hep B Core Total Ab Negative Hepatitis C Antibody Negative Preliminary micro results at discharge 04/17/25 14:00 Blood Blood Culture - Preliminary NO GROWTH 96 HOURS 04/17/25 13:26 Blood Blood Culture - Preliminary NO GROWTH 96 HOURS PFSH All Active Problems (Updated 04/22/25 @ 12:54 by Zoila De La Garza APRN) Acute interstitial pneumonia (Acute) Hypomagnesemia (Acute) Hypokalemia (Acute) Hypercalcemia (Acute) COPD (chronic obstructive pulmonary disease) (Chronic) CHF (congestive heart failure) (Chronic) Bronchitis (Acute) Laceration of left upper extremity (Acute) Discharge planning issues (Acute) Abnormal transaminases (Acute) Pancreatitis (Chronic) Acute biliary pancreatitis (Acute) Laceration of left forearm (Acute) Anemia (Chronic) COPD exacerbation (Acute) Electrolyte disturbance (Acute) Acute on chronic hypoxic respiratory failure (Acute) Left above-knee amputee (Acute) Advanced care planning/counseling discussion (Acute) Elevated liver enzymes (Acute) Exertional shortness of breath (Acute) Heart failure with preserved ejection fraction (Acute) Wound dehiscence (Acute) Thickened endometrium (Acute) Postmenopausal bleeding (Acute) Venous stasis dermatitis (Acute) Chronic headaches (Chronic) Recent Neurology consult for possible papilledema. Urinary incontinence (Chronic) On Detrol Recurrent UTI (Chronic) Right ventricular dysfunction (Chronic) Knee pain, bilateral (Chronic 07/23/14) s/p bilat TKR (left infected with mult surg and decreased mobility) Morbid obesity (Acute 04/05/13) Sensorineural hearing loss, bilateral (Chronic 08/29/13) Advance directive on file (Acute) Low back pain with sciatica (Chronic 05/03/14) CT at [facility] [place] L34 spinal stenosis Varicose veins of lower extremity (Chronic) Depression (Chronic) Grief at loss of child (Acute) Mixed conductive and sensorineural hearing loss of both ears (Acute) Right carpal tunnel syndrome (Acute) Arthritis of right hand (Acute) Impingement of right ulnar nerve (Acute) Dermoid cyst of neck (Acute) Microcalcifications of the breast (Acute) Neuropathy of left hand (Acute) Neuropathy of right hand (Acute) Bilateral carpal tunnel syndrome (Acute) Medical History Palliative care patient CHF (congestive heart failure) Atrial fibrillation COPD (chronic obstructive pulmonary disease) Hx pulmonary embolism (~2015) treated with lovenox x 3 months GERD (gastroesophageal reflux disease) had negative barium esophagram in 11/2022. Anxiety Lymphedema Hypothyroidism DAVID (obstructive sleep apnea) on BiPap Chronic respiratory failure with hypoxia and hypercapnia home BiPap Surgical History S/P AKA (above knee amputation) (~09/2024) Status post thyroidectomy History of fasciotomy Replacement of total knee joint Bilateral; left-became [id number]-gvztfla-heuwkvet surgeries Fasciotomy, Foot (~1996) LEFT History of Surgical Procedure a. Right and left toal knee replacements. b. Left knee has been repeatedly operated on with slava surgies, three replacements. Family History Mother Diabetes Personal history of malignant neoplasm LUNG Father Personal history of malignant neoplasm BRAIN Grandfather No problems noted. Grandfather No problems noted. Grandmother No problems noted. Grandmother No problems noted. Social History (Updated 11/28/24 @ 21:52 by Brandan Hicks) Smoking/Tobacco Use Status: Former Tobacco Use tobacco type: cigarettes Quit Date: 01/21/21 Second Hand Exposure: Yes Smoking risk assessment performed?: Yes Alcohol Intake: never Drug use: Never Substance use type: does not use Counseling given: No Housing: house Communication Needs: Hard of Hearing and Corrective Lenses Pets and animals: Yes Pets and animals: cat(s) Sexually active: Yes Current gender identity: female What is your relationship status?: never How often do you talk on the phone with friends or family?: decline to answer How often do you get together with friends or relatives?: decline to answer How often do you attend yazdanism or rastafari services?: decline to answer Do you belong to any clubs or organized social groups?: no Panel score (0-1 are the most socially isolated patients): 0 Seatbelt use: never Do you feel safe at home: Yes Do you feel safe in your relationship?: Yes Additional Social history: Lives in her own apartment in [facility] Kites Time Spent with Patient Time Spent with Patient: >85 minutes Time was spent: preparing to see the patient(eg.review tests), obtaining and/or reviewing separately otained hiistory, ordering medications,tests, procedures, referring, communicating with other health lpn care manager, indepentently interpreting results, counseling the patient, care coordination and other
[2025-04-22] MEDS: Doxycycline Hyclate 100 MG CAP PO (12:16)
[2025-04-22] MEDS: Potassium Chloride 20 MEQ TABCR 40 MEQ PO (12:16)
[2025-04-22] MEDS: Cefpodoxime 200 MG TAB PO (12:32)
[2025-04-22 12:37] LABS: Magnesium 1.4 mg/dL (1.8-2.4)
--- NOTE | 2025-04-22 15:01 | CMDISCH_ITS ---
Date of service: 04/22/25 Time of Service: 12:00 LACE Index Scoring Tool Questions: Length of Stay (in days): 4 - 6 Was the patient admitted via the E.D.?: Yes Comorbidities: Congestive Heart Failure and Chronic Pulmonary Disease E.D. Visits: 8 Answers: Total Score: 16 Risk of Readmission: High Risk Care Management Discharge Plan Reason for Hospitalization: sepsis, pneumonia Discharge Plan: Radha was discharged earlier today with a resumption of her HH RN services. She will f/u with her PCP office on 04/24 and continue per her plan of care. Radha took the RCT bus home. Patient/Family Education Needs: Review of discharge instructions, activity, limitations, and discuss Ask me 3 Services Needed at Discharge: Home Health Care Services (resumption of RN) SDOH Health Related Social Needs: Health related social needs material hardship Health related social needs details Pt refuses to answ er questions
== END 2025-04-22 13:25 | disposition home health service (06) | DRG 871 ==
LOC: ER 15:31 → MS 15:42
PROVIDERS: Admitting Provider Hospitalist; Emergency Provider Physician Assistant; PCP Family Medicine; Responsible Provider Nurse Practitioner Acute Care; Visit Provider Hospitalist
DX: A41.9 Sepsis, unspecified organism (principal); I50.33 Acute on chronic diastolic (congestive) heart failure; J96.21 Acute and chronic respiratory failure with hypoxia; Z68.44 Body mass index [BMI] 60.0-69.9, adult; J84.9 Interstitial pulmonary disease, unspecified; J44.1 Chronic obstructive pulmonary disease with (acute) exacerbation; J44.0 Chronic obstructive pulmonary disease with (acute) lower respiratory infection; H47.10 Unspecified papilledema; L97.821 Non-pressure chronic ulcer of other part of left lower leg limited to breakdown of skin; E83.42 Hypomagnesemia; E87.6 Hypokalemia; Z89.612 Acquired absence of left leg above knee; R74.8 Abnormal levels of other serum enzymes; I48.91 Unspecified atrial fibrillation; E66.01 Morbid (severe) obesity due to excess calories; R74.01 Elevation of levels of liver transaminase levels; J20.9 Acute bronchitis, unspecified; N95.0 Postmenopausal bleeding; Z99.81 Dependence on supplemental oxygen; E83.51 Hypocalcemia; I87.2 Venous insufficiency (chronic) (peripheral); H90.3 Sensorineural hearing loss, bilateral; Z86.711 Personal history of pulmonary embolism; K21.9 Gastro-esophageal reflux disease without esophagitis; G47.33 Obstructive sleep apnea (adult) (pediatric); E03.9 Hypothyroidism, unspecified; I89.0 Lymphedema, not elsewhere classified; Z87.891 Personal history of nicotine dependence; Z59.87 Material hardship due to limited financial resources, not elsewhere classified
CPT/HCPCS: 00123; 36415; 80053; 82805; 83690; 84145; 86704; 86709; 86803; 87040; 87340; 87637; 93005; 94640; 96365; 96367; 96368; 96375; 97162; 97530; 99291; 71045; 76705; 83036; 83605; 83735; 83880; 84484; 85025; 93010; 94660; 94760; 99223; 99232; 99233; 99239; J0612; J0696; J1650; J1938; J2919; J3475; J3480; J7512; J7613; J7620

== ENCOUNTER 2025-04-25 14:43 | Outpatient (CLI) | payer MEDICARE, MEDICAID, SELFPAY ==
[2025-04-25 12:04] LABS: ALT 190 U/L (14-59); AST 73 U/L (15-37); Albumin 2.7 g/dL (3.4-5.0); Alkaline Phosphatase 94 U/L (46-116); Anion Gap 6.8 mmol/L (3-11); BUN 16 mg/dL (7-18); Bilirubin, Direct 0.4 mg/dL (0.0-0.2); Bilirubin, Total 1.5 mg/dL (0.2-1.0); CO2 35.2 mmol/L (21.0-32.0); Calcium 7.9 mg/dL (8.5-10.1); Chloride 94 mmol/L (98-107); Estimated GFR 60.98 (mL/min/1.73m2); Glucose 187 mg/dL (74-106); Magnesium 1.8 mg/dL (1.8-2.4); Sodium 136 mmol/L (136-145); Total Protein 7.6 g/dL (6.4-8.2)
[2025-04-25 13:00] LABS: Potassium 2.9 mmol/L (3.5-5.1)
== END 2025-04-25 14:44 | disposition home or self-care (01) ==
LOC: LBO 14:43
PROVIDERS: Family Medicine; PCP Family Medicine; Visit Provider Family Medicine
DX: R74.8 Abnormal levels of other serum enzymes (principal); E83.42 Hypomagnesemia; E87.6 Hypokalemia
CPT/HCPCS: 36415; 80048; 80076; 83735

== ENCOUNTER 2025-05-01 13:33 | Outpatient (CLI) | payer MEDICARE, MEDICAID, SELFPAY ==
[2025-05-01 10:32] LABS: ALT 112 U/L (14-59); AST 61 U/L (15-37); Albumin 2.3 g/dL (3.4-5.0); Alkaline Phosphatase 90 U/L (46-116); Anion Gap 7.8 mmol/L (3-11); BUN 10 mg/dL (7-18); Bilirubin, Total 0.9 mg/dL (0.2-1.0); CO2 33.2 mmol/L (21.0-32.0); Calcium 9.3 mg/dL (8.5-10.1); Chloride 97 mmol/L (98-107); Glucose 133 mg/dL (74-106); Sodium 138 mmol/L (136-145); Total Protein 6.8 g/dL (6.4-8.2)
[2025-05-01 10:35] LABS: Potassium 2.8 mmol/L (3.5-5.1)
== END 2025-05-01 13:34 | disposition home or self-care (01) ==
LOC: LBO 06-14 13:33
PROVIDERS: PCP Family Medicine; Visit Provider Family Medicine
DX: R10.9 Unspecified abdominal pain (principal)
CPT/HCPCS: 36415; 80053

== ENCOUNTER 2025-05-15 13:31 | Emergency (ER) | payer MEDICARE, MEDICAID, SELFPAY ==
[2025-05-15] VITALS (14 sets, daily range): BP systolic 110–138; BP diastolic 44–70; PULSE 84–91; RESP 20–22; O2SAT 74–100
--- NOTE | 2025-05-15 13:30 | RT.EKG_ITS ---
APPROVED REPORT Exam: Resting ECG Reason for Exam: SOB Patient Location: E HR:87 bpm ECG Measurements Heart Rate 87 AXIS MO 188 P 61 QRSd 102 QRS 63 QT 376 T [id number] QTc 453 Conclusion Sinus rhythm, rate 87 No interval abnormalities No STEMI T wave inversions III, aVF unchanged from priors
--- NOTE | 2025-05-15 13:56 | W.ED.GENAD ---
Discharge Plan Disposition Patient Disposition: Home Condition: Stable Discharge Details Clinical Impression: CHF (congestive heart failure), COPD exacerbation Primary Care Provider: Alphonso Murphy ED Provider: Leyda Bautista Home Meds and New Rx's Prescriptions: New azithromycin 250 mg tablet 250 mg PO DAILY 4 Days Qty: 4 0RF Rx Instructions: start on day 2 of therapy (05/16/2025) prednisone 20 mg tablet 40 mg PO DAILY 4 Days Qty: 8 0RF Rx Instructions: Start on 05/16/2025 No Action albuterol sulfate 90 mcg/actuation HFA aerosol inhaler 1 - 2 puff Inhalation Q6H PRN Qty: 1 11RF fluticasone propionate [Flonase Allergy Relief] 50 mcg/actuation spray,suspension 1 spray NS DAILY Qty: 1 8RF alclometasone 0.05 % cream 1 applic topical BID PRN (Reason: itching) Qty: 45 1RF gabapentin 300 mg capsule 600 mg PO TID PRN levothyroxine 200 mcg tablet 200 mcg PO DAILY Qty: 90 3RF semaglutide 3 mg tablet 3 mg PO DAILY 30 Days Qty: 30 1RF Rx Instructions: Start on Sat 20th. Stop Jardiance now. metolazone 2.5 mg tablet See Rx Instructions PO .q tues/frid Qty: 20 2RF Rx Instructions: Take if provider tells you to orally Q TUES/FRID; diclofenac sodium [Voltaren Arthritis Pain] 1 % gel 4 g topical QID Qty: 100 2RF Rx Instructions: apply to both wrists and thumbs up to 4 times a day potassium chloride [Klor-Con M20] 20 mEq tablet,ER particles/crystals 20 meq PO BID Qty: 120 1RF Rx Instructions: Start Sept 18nto take 4 doses a day until you are seen again ascorbic acid (vitamin C) 1,000 MG tablet 1,000 mg PO DAILY BiPAP Inhalation Gas 5 l IN DIRECTED Rx Instructions: sleep apnea ([facility] sleep lab 2012) uses with oxygen betamethasone, augmented 0.05 % lotion 1 applic topical BID PRN (Reason: allergic reaction) Qty: 60 2RF oxygen Inhalation 3 l Intranasal DIRECTED Patient Comments: Continuous and uses with bipap Rx Instructions: 3L/NC continuous sertraline 50 mg tablet 50 mg PO DAILY Qty: 90 3RF ketoconazole 2 % cream 1 applic topical BID PRN (Reason: facial rash) Qty: 60 1RF Jardiance 10 mg tablet 10 mg PO QAM Qty: 90 3RF torsemide 20 mg tablet 40 mg PO BID Qty: 360 3RF norethindrone acetate [Gallifrey] 5 mg tablet See Rx Instructions .ROUTE .COMPLEX Qty: 180 0RF Dose Instruction: TAKE TWO TABLETS BY MOUTH TWICE A DAY Rx Instructions: TAKE TWO TABLETS BY MOUTH TWICE A DAY lidocaine 5 % gel 1 applic topical DAILY PRN (Reason: dressing changes) Qty: 30 2RF nystatin 100,000 unit/gram powder 1 applic TP BID Qty: 30 5RF prochlorperazine maleate [Compazine] 5 mg tablet 5 mg PO QID PRNQty: 10 0RF BiomePRO 50 billion cell capsule,delayed release(DR/EC) 1 cap PO DAILY Qty: 4 0RF Rx Instructions: Take 3 hours apart form any antibiotics ipratropium-albuterol 0.5 mg-3 mg(2.5 mg base)/3 mL solution for nebulization 3 ml inhalation Q6H PRN (Reason: shortness of breath or wheezing) Qty: 90 0RF spironolactone 25 mg Tablet 25 mg PO DAILY Qty: 30 0RF guaifenesin [Mucus Relief ER] 600 mg Tablet Extended Release 12hr 600 mg PO BID Qty: 6 0RF prednisone 20 mg Tablet 40 mg PO DAILY Qty: 8 0RF Rx Instructions: Taper Take 40 mg PO X 2 days then 20 mg PO X 4 days then 10 mg PO X 4 days Discharge Instructions Instructions: Heart Failure, Adult (DC) Additional Instructions: You were seen in the emergency department today for evaluation of shortness of breath and sputum changes. In our department you had a full physical examination performed, had reassuring laboratory studies including negative cardiac enzymes and a negative COVID and influenza swab. Your x-ray does show some increased fluid markings in your lungs, which we discussed. You did not have any sign of severe pneumonia or sepsis today. As we discussed, we are going to be treating you for a COPD exacerbation with antibiotics and prednisone, which you will take for the next 5 days. You received today's dose already and should cloth picker your medications from the pharmacy and start taking them tomorrow. Please continue to wear your home oxygen and monitor your SpO2, which should be greater than 88%. Please use your nebulizers as prescribed. We discussed diuresis, and at this time you have elected to trial a an oral course of diuresis. You will double the torsemide that you take in the morning, for the next 3 days. What this means is you will be taking 80 mg of torsemide in the morning, and your normal 40 mg of torsemide in the afternoon. You may also wish to increase your dietary intake of potassium. Your primary care provider will certainly need to recheck your laboratory studies in the next few days to ensure that things are moving in the right direction. You are currently taking 40 mEq of potassium twice per day, and should continue this dose without changes unless directed by your outpatient providers. If your work of breathing worsens, your oxygenation changes and you need to increase your home O2, or you have any other concerning symptoms you can always return for reevaluation. Please follow-up with your primary care provider in the next few days to discuss this visit and any symptoms that change, worsen, or persist. Thank you for allowing us to be part of your care. HPI General Mode of arrival: wheelchair. Date/Time Provider Initiated Documentation: 05/15/25 13:41. Limitations to Documentation: no limitations. Information obtained by: patient and old records reviewed. HPI Narrative: This is a 70-year-old female patient with a past medical history significant for COPD, CHF (on 3 L/min O2 by nasal cannula at baseline), history of anemia, left AKA, recent admission at the beginning of April for sepsis due to pneumonia, who is presenting for evaluation of shortness of breath, cough and increased sputum production since Tuesday. The patient reports that her granddaughter has recently been sick with a stuffy nose, and she started to develop similar symptoms on Tuesday. She reports that she had been feeling quite well after her recent admission. She states she has been using her duo nebulizers which helped somewhat, but have not resolved her shortness of breath. She denies chest pain, but states that she has noticed increasing swelling in her lower extremity and stump. She states that this is typically where her extra fluid collects. She has been taking her torsemide as prescribed, has been urinating normally without dysuria or hematuria. States that she has not had any nausea or vomiting, has had poor appetite since her last admission but is maintaining hydration. Is not currently taking steroids, states that she has had a low-grade fever to 99 at home. Reports that her sputum is whitish, no hemoptysis. Related Data Home Medications ?Medication ?Instructions ?Recorded ?Confirmed ascorbic acid (vitamin C) 1,000 mg 1,000 mg PO DAILY 11/25/12 05/15/25 tablet Bipap 5 l IN DIRECTED 07/23/14 05/15/25 betamethasone, augmented 0.05 % 1 applic topical BID PRN allergic 06/20/21 05/15/25 lotion reaction #60 mL oxygen 3 l intranasal DIRECTED 04/02/24 05/15/25 L. acidophilus,casei,rhamnosus 50 1 cap PO DAILY #4 caps 06/04/24 05/15/25 billion cell capsule,delayed release (BiomePRO) albuterol sulfate 90 mcg/actuation 1 - 2 puff inhalation Q6H PRN ##1 07/17/24 05/15/25 aerosol inhaler fluticasone propionate 50 1 spray NS DAILY ##1 07/17/24 05/15/25 mcg/actuation nasal spray,suspension (Flonase Allergy Relief) sertraline 50 mg tablet 50 mg PO DAILY #90 tabs 07/26/24 05/15/25 gabapentin 300 mg capsule 600 mg PO TID PRN 10/11/24 05/15/25 ipratropium 0.5 mg-albuterol 3 mg 3 ml inhalation Q6H PRN shortness 11/19/24 05/15/25 (2.5 mg base)/3 mL nebulization of breath or wheezing #90 mL soln alclometasone 0.05 % topical cream 1 applic topical BID PRN itching 11/20/24 05/15/25 #45 grams spironolactone 25 mg tablet 25 mg PO DAILY #30 tabs 12/02/24 05/15/25 ketoconazole 2 % topical cream 1 applic topical BID PRN facial 12/19/24 05/15/25 rash #60 grams levothyroxine 200 mcg tablet 200 mcg PO DAILY #90 tabs 01/10/25 05/15/25 empagliflozin 10 mg tablet 10 mg PO QAM #90 tabs 02/02/25 05/15/25 (Jardiance) prochlorperazine maleate 5 mg 5 mg PO QID PRN #10 tabs 02/07/25 05/15/25 tablet (Compazine) torsemide 20 mg tablet 40 mg (2 x 20 mg) PO BID #360 tabs 04/08/25 05/15/25 lidocaine 5 % topical gel 1 applic topical DAILY PRN 04/11/25 05/15/25 dressing changes #30 grams norethindrone acetate 5 mg tablet See Rx Instructions .Route 04/11/25 05/15/25 (Gallifrey) .COMPLEX #180 tabs guaifenesin 600 mg tablet, 600 mg PO BID #6 tabs 04/22/25 05/15/25 extended release 12 hr (Mucus Relief ER) prednisone 20 mg tablet 40 mg (2 x 20 mg) PO DAILY #8 tabs 04/22/25 05/15/25 diclofenac sodium 1 % topical gel 4 g topical QID #100 grams 04/30/25 05/15/25 (Voltaren Arthritis Pain) metolazone 2.5 mg tablet See Rx Instructions PO .q 04/30/25 05/15/25 tues/frid #20 tabs semaglutide 3 mg tablet 3 mg PO DAILY 30 days #30 tabs 04/30/25 05/15/25 potassium chloride 20 mEq 20 meq PO BID #120 tabs 05/01/25 05/15/25 tablet,extended release(part/cryst) (Klor-Con M) nystatin 100,000 unit/gram topical 1 applic topical BID intertrigo 05/09/25 05/15/25 powder #30 grams azithromycin 250 mg tablet 250 mg PO DAILY 4 days #4 tabs 05/15/25 prednisone 20 mg tablet 40 mg (2 x 20 mg) PO DAILY 4 days 05/15/25 #8 tabs Previous Rx's ?Medication ?Instructions ?Recorded betamethasone, augmented 0.05 % 1 applic topical BID PRN allergic 06/20/21 lotion reaction #60 mL L. acidophilus,casei,rhamnosus 50 1 cap PO DAILY #4 caps 06/04/24 billion cell capsule,delayed release (BiomePRO) albuterol sulfate 90 mcg/actuation 1 - 2 puff inhalation Q6H PRN ##1 07/17/24 aerosol inhaler fluticasone propionate 50 1 spray NS DAILY ##1 07/17/24 mcg/actuation nasal spray,suspension (Flonase Allergy Relief) sertraline 50 mg tablet 50 mg PO DAILY #90 tabs 07/26/24 ipratropium 0.5 mg-albuterol 3 mg 3 ml inhalation Q6H PRN shortness 11/19/24 (2.5 mg base)/3 mL nebulization of breath or wheezing #90 mL soln alclometasone 0.05 % topical cream 1 applic topical BID PRN itching 11/20/24 #45 grams spironolactone 25 mg tablet 25 mg PO DAILY #30 tabs 12/02/24 ketoconazole 2 % topical cream 1 applic topical BID PRN facial 12/19/24 rash #60 grams levothyroxine 200 mcg tablet 200 mcg PO DAILY #90 tabs 01/10/25 empagliflozin 10 mg tablet 10 mg PO QAM #90 tabs 02/02/25 (Jardiance) prochlorperazine maleate 5 mg 5 mg PO QID PRN #10 tabs 02/07/25 tablet (Compazine) torsemide 20 mg tablet 40 mg (2 x 20 mg) PO BID #360 tabs 04/08/25 lidocaine 5 % topical gel 1 applic topical DAILY PRN 04/11/25 dressing changes #30 grams norethindrone acetate 5 mg tablet See Rx Instructions .Route 04/11/25 (Gallifrey) .COMPLEX #180 tabs guaifenesin 600 mg tablet, 600 mg PO BID #6 tabs 04/22/25 extended release 12 hr (Mucus Relief ER) prednisone 20 mg tablet 40 mg (2 x 20 mg) PO DAILY #8 tabs 04/22/25 diclofenac sodium 1 % topical gel 4 g topical QID #100 grams 04/30/25 (Voltaren Arthritis Pain) metolazone 2.5 mg tablet See Rx Instructions PO .q 04/30/25 tues/frid #20 tabs semaglutide 3 mg tablet 3 mg PO DAILY 30 days #30 tabs 04/30/25 potassium chloride 20 mEq 20 meq PO BID #120 tabs 05/01/25 tablet,extended release(part/cryst) (Klor-Con M) nystatin 100,000 unit/gram topical 1 applic topical BID intertrigo 05/09/25 powder #30 grams azithromycin 250 mg tablet 250 mg PO DAILY 4 days #4 tabs 05/15/25 prednisone 20 mg tablet 40 mg (2 x 20 mg) PO DAILY 4 days 05/15/25 #8 tabs Allergies Allergy/AdvReac Type Severity Reaction Status Date / Time hydrocodone Allergy Severe ITCHING Verified 05/15/25 13:37 morphine Allergy Mild PRURITIS Verified 05/15/25 13:37 oxycodone Allergy Mild ITCHING Verified 05/15/25 13:37 General Stated Complaint: SOB REUBEN: 3 Exam Narrative Exam Narrative: Gen: Awake and alert, appears chronically ill, sitting up in her powered wheelchair HEENT: Non-icteric sclera, nasal cannula in place without copious rhinorrhea appreciated Neck: Supple Lungs: Mild tachypnea, diminished lung sounds throughout, no obvious rhonchi, rales, or wheezes CV: Appears well perfused, heart with regular rate and rhythm, strong distal pulses Abdomen: Non-distended, soft, nontender MSK: Moves extremities without apparent limitation in ROM. Right lower extremity 2+ peripheral edema appreciated, edema also appreciated to the left lower extremity stump. Skin: Visualized skin without rashes, cyanosis. Neuro: No obvious focal deficits or facial asymmetry. Speaks in full, clear sentences. Psych: Appropriate for situation. Course Vital Signs Vital signs: Vital Signs Pulse 89 05/15/25 13:35 Respiratory Rate 22 05/15/25 13:35 Blood Pressure 110/70 05/15/25 13:35 Pulse Oximetry 89 L 05/15/25 13:35 Pulse 89 05/15/25 13:35 Respiratory Rate 22 05/15/25 13:35 Blood Pressure 110/70 05/15/25 13:35 Pulse Oximetry 89 L 05/15/25 13:35 Oxygen Delivery Method Nasal Cannula 05/15/25 13:35 Oxygen Flow Rate 3 05/15/25 13:35 Medical Decision Making This is a 70-year-old female patient presenting for evaluation of shortness of breath, runny nose, increase sputum production. My differential includes but is not limited to viral upper respiratory infection, pneumonia, bronchitis, COPD exacerbation, hypercarbia, CHF exacerbation, including pulmonary edema and pleural effusion. The patient is not experiencing chest pain though I certainly considered ACS, arrhythmia, pericarditis and myocarditis. Symptoms are more concerning for an infectious, reactive, or congestive condition, and are less concerning for pulmonary embolism. The patient does not meet sepsis criteria based on her triage vital signs. Considered anemia, metabolic and electrolyte derangements, kidney and liver injury. At this time the patient is oxygenating appropriately on her home 3 L/min. I will obtain labs to include CBC, CMP, magnesium, troponin, BNP, VBG, and Fluvid. I will provide the patient with a duo nebulizer treatment and a dose of Solu-Medrol given her diminished lung sounds, and obtain a chest x-ray. - I reviewed the patient's laboratory studies, which show no leukocytosis, anemia, or thrombocytopenia. VBG without acidosis, mild hypercarbia to 55, chemistry panel without significant electrolyte derangements, evidence of kidney dysfunction, transaminitis appreciated which has been demonstrated on prior laboratory workups. Troponin is negative and without interval increase in 1 hour delta recheck. BNP is low, COVID and influenza swab negative. Chest x-ray reviewed by myself, does show some increasing interstitial changes concerning for CHF. The patient's oxygenation has remained appropriate throughout her time in the emergency department without the need to increase her O2 support. I had a shared decision-making conversation with the patient, regarding IV diuresis and she is hesitant given the difficulty with transferring from her chair to the commode in the emergency department setting. She is desiring of an attempt at oral diuresis which I do not think is unreasonable given her otherwise reassuring workup. I will have her double her morning torsemide for the next 3 days, she will take 80 mg in the morning instead of her typical 40. I also will treat her for COPD exacerbation given the diminished lung sounds and change in sputum production, and provided her with azithromycin here as well as prescriptions for the remainder of a 5-day course of azithromycin and prednisone. I counseled the patient that she will need to follow-up with her primary care provider in the next few days to discuss this visit and have laboratory studies rechecked to ensure that her potassium does not go too low, and that the change in her diuretic dosing was effective. We discussed return precautions, including low oxygen, worsening shortness of breath, etc. At this time, the patient has had a full medical evaluation and is safe for discharge to home. They are hemodynamically stable and tolerating PO. They are understanding of the follow-up plan and return precautions. They left our facility without incident. Leyda Bautista MD Quality:SDOH Health Related Social Needs: Health related social needs material hardship Health related social needs details Pt refuses to answer questions PFSH All Active Problems (Updated 05/15/25 @ 16:34 by Leyda Bautista MD) Dependent edema (Acute) Edema (Acute) Edema leg (Acute) Pain, foot, right, chronic (Acute) S/P AKA (above knee amputation) unilateral (Acute) Hypokalemia (Acute) Abnormal liver enzymes (Acute) Hypomagnesemia (Acute) Hypokalemia with shifts of fluid from extracellular to intracellular space (Acute) Acute interstitial pneumonia (Acute) Hypercalcemia (Acute) COPD (chronic obstructive pulmonary disease) (Chronic) CHF (congestive heart failure) (Chronic) Laceration of left upper extremity (Acute) Abnormal transaminases (Acute) Pancreatitis (Chronic) Acute biliary pancreatitis (Acute) Laceration of left forearm (Acute) Anemia (Chronic) COPD exacerbation (Acute) Electrolyte disturbance (Acute) Acute on chronic hypoxic respiratory failure (Acute) Left above-knee amputee (Acute) Advanced care planning/counseling discussion (Acute) Elevated liver enzymes (Acute Unknown) Exertional shortness of breath (Acute) Heart failure with preserved ejection fraction (Acute) Wound dehiscence (Acute) Thickened endometrium (Acute) Postmenopausal bleeding (Acute) Venous stasis dermatitis (Acute) Chronic headaches (Chronic) Recent Neurology consult for possible papilledema. Urinary incontinence (Chronic) On Detrol Recurrent UTI (Chronic) Right ventricular dysfunction (Chronic) Knee pain, bilateral (Chronic 07/23/14) s/p bilat TKR (left infected with mult surg and decreased mobility) Morbid obesity (Acute 04/05/13) Sensorineural hearing loss, bilateral (Chronic 08/29/13) Advance directive on file (Acute) Low back pain with sciatica (Chronic 05/03/14) [place] [facility] [place] Varicose veins of lower extremity (Chronic) Depression (Chronic) Grief at loss of child (Acute) Mixed conductive and sensorineural hearing loss of both ears (Acute) Right carpal tunnel syndrome (Acute) Arthritis of right hand (Acute) Impingement of right ulnar nerve (Acute) Dermoid cyst of neck (Acute) Microcalcifications of the breast (Acute) Neuropathy of left hand (Acute) Neuropathy of right hand (Acute) Bilateral carpal tunnel syndrome (Acute) Medical History Palliative care patient CHF (congestive heart failure) Atrial fibrillation COPD (chronic obstructive pulmonary disease) Hx pulmonary embolism (~2015) treated with lovenox x 3 months GERD (gastroesophageal reflux disease) had negative barium esophagram in 11/2022. Anxiety Lymphedema Hypothyroidism DAVID (obstructive sleep apnea) on BiPap Chronic respiratory failure with hypoxia and hypercapnia home BiPap Surgical History S/P AKA (above knee amputation) (~09/2024) Status post thyroidectomy History of fasciotomy Replacement of total knee joint Bilateral; left-became [id number] surgeries Fasciotomy, Foot (~1996) LEFT History of Surgical Procedure a. Right and left toal knee replacements. b. Left knee has been repeatedly operated on with slava surgies, three replacements. Family History Mother Diabetes Personal history of malignant neoplasm LUNG Father Personal history of malignant neoplasm BRAIN Grandfather No problems noted. Grandfather No problems noted. Grandmother No problems noted. Grandmother No problems noted. Social History (Updated 11/28/24 @ 21:52 by Brandan Hicks) Smoking/Tobacco Use Status: Former Tobacco Use tobacco type: cigarettes Quit Date: 01/21/21 Second Hand Exposure: Yes Smoking risk assessment performed?: Yes Alcohol Intake: never Drug use: Never Substance use type: does not use Counseling given: No Housing: house Communication Needs: Hard of Hearing and Corrective Lenses Pets and animals: Yes Pets and animals: cat(s) Sexually active: Yes Current gender identity: female What is your relationship status?: never How often do you talk on the phone with friends or family?: decline to answer How often do you get together with friends or relatives?: decline to answer How often do you attend latter day or sikhism services?: decline to answer Do you belong to any clubs or organized social groups?: no Panel score (0-1 are the most socially isolated patients): 0 Seatbelt use: never Do you feel safe at home: Yes Do you feel safe in your relationship?: Yes Additional Social history: Lives in her own apartment in [facility], uses electric scooter
--- NOTE | 2025-05-15 14:00 | DI.RAD_ITS ---
Exam(s) XR CHEST 2V PA LATERAL EXAM: XR CHEST 2V PA LATERAL CLINICAL HISTORY: SOB, cough TECHNIQUE: 2D digital imaging was performed. Two views. COMPARISON: No exams were available for comparison FINDINGS: Exam is limited by under penetration and poor pulmonary inflation on the lateral view. There is also mild respiratory motion.. HEART: Norm enlarged. Aorta: Not dilated. PULMONARY VASCULATURE: Normal prominent bilaterally. MEDIASTINUM: Unremarkable. LUNGS: There are significantly increased interstitial markings, greater at the lung bases. The findings are suspicious for CHF. No definite focal area of consolidation. PLEURAL SPACE: No pleural effusion or pneumothorax. BONE:Unremarkable for age. SOFT TISSUES: Unremarkable. IMPRESSION: Findings suspicious for CHF. DATA REPOSITORY: RADIATION DOSE DELIVERED:
[2025-05-15 14:40] LABS: BE (Venous) 6 mmol/L (-2-3); HCO3 (Venous) 31 mmol/L (23-28); O2 Sat (Venous) 55 %; TCO2 (Venous) 29 mmol/L (24-29); pCO2 (Venous) 55 mmHg (41-51); pO2 (Venous) 32 mmHg
[2025-05-15 14:42] LABS: Abs Immature Grans 0.04 10^3/uL (0.0-0.06); HCT 36.3 % (36.0-46.0); HGB 11.3 g/dL (11.2-15.7); Immature Grans % 0.4 %; MCH 24.1 pg (27.0-33.0); MCHC 31.1 % (32.0-36.0); MCV 77 fL (80-95); MPV 9.1 fL (8.0-11.0); Platelet Count 451 10^3/uL (130-400); RBC 4.69 10^6/uL (3.93-5.22); RDW 21.0 % (11.7-14.6); RDW-SD 58.4 fL; WBC 9.87 10^3/uL (4.4-10.8)
[2025-05-15] MEDS: methylPREDNISolone SUCC 125 MG VIAL IVP (15:00)
[2025-05-15] MEDS: Albuterol/Ipratropium 3 ML UPD VIAL UPD (15:00)
[2025-05-15 15:10] LABS: Anisocytosis 2+; Hypochromasia 1+; Microcytosis 1+
[2025-05-15 15:25] LABS: ALT 80 U/L (14-59); AST 67 U/L (15-37); Albumin 2.5 g/dL (3.4-5.0); Alkaline Phosphatase 79 U/L (46-116); Anion Gap 7.5 mmol/L (3-11); BUN 6 mg/dL (7-18); Bilirubin, Total 0.7 mg/dL (0.2-1.0); CO2 33.5 mmol/L (21.0-32.0); Calcium 7.8 mg/dL (8.5-10.1); Chloride 101 mmol/L (98-107); Estimated GFR 79.71 (mL/min/1.73m2); Glucose 95 mg/dL (74-106); Magnesium 1.8 mg/dL (1.8-2.4); NT-proBNP 191 pg/mL (<300); Potassium 3.4 mmol/L (3.5-5.1); Sodium 142 mmol/L (136-145); Total Protein 7.3 g/dL (6.4-8.2); Troponin I 10 ng/L (<or=51)
[2025-05-15 16:04] LABS: Troponin I 7 ng/L (<or=51)
[2025-05-15 16:19] LABS: COVID-19 PCR Negative (Negative); RSV PCR Negative (Negative)
[2025-05-15] MEDS: Azithromycin 250 MG TAB 500 MG PO (16:54)
== END 2025-05-15 16:58 | disposition home or self-care (01) ==
PROVIDERS: Emergency Provider Emergency Medicine; PCP Family Medicine
DX: I50.9 Heart failure, unspecified (principal); J44.1 Chronic obstructive pulmonary disease with (acute) exacerbation; R06.02 Shortness of breath
CPT/HCPCS: 99285; 99284; 36415; 96374; 80053; 82805; 87637; 93005; 71046; 83735; 83880; 84484; 85025; 93010; J2919; J7620

== ENCOUNTER 2025-05-22 09:34 | Outpatient (REF) | payer MEDICARE, MEDICAID, SELFPAY ==
[2025-05-22 10:24] LABS: Potassium 3.2 mmol/L (3.5-5.1)
== END 2025-05-22 09:35 | disposition home or self-care (01) ==
LOC: LBN 09:34
PROVIDERS: PCP Family Medicine; Visit Provider Family Medicine
DX: I10 Essential (primary) hypertension (principal)
CPT/HCPCS: 84132

== ENCOUNTER 2025-06-05 10:43 | Emergency (ER) | payer MEDICARE, MEDICAID, SELFPAY ==
--- NOTE | 2025-06-05 10:45 | RT.EKG_ITS ---
APPROVED REPORT Exam: Resting ECG Reason for Exam: Difficulty Breathing/ Chest Pain Patient Location: E HR:84 bpm ECG Measurements Heart Rate 84 AXIS SD 182 P 59 QRSd 101 QRS 67 QT 427 T 34 QTc 505 Conclusion Sinus rhythm...normal P axis, V-rate 60- 99 Prolonged QT interval...QTc >500mS Physician: No STEMI
[2025-06-05 10:56] VITALS: BP 116/69; PULSE 83; RESP 20; TEMP 36.8; O2SAT 93
--- NOTE | 2025-06-05 11:30 | DI.RAD_ITS ---
Exam(s) XR CHEST 2V PA LATERAL EXAM: XR CHEST 2V PA LATERAL CLINICAL HISTORY: shortness of breath TECHNIQUE: 2D digital imaging was performed of the chest. Three images were obtained. AP and lateral views were obtained. COMPARISON: CR XR CHEST 2V PA LATERAL from 05/15/2025 FINDINGS: Examination limited by technique and poor inspiration. MEDIASTINUM: Normal. HEART: Cardiomegaly. PULMONARY VASCULATURE: There is pulmonary venous congestion. LUNGS: There are prominent interstitial markings in the lungs. No definite focal consolidating infiltrates are seen. PLEURAL SPACE: No pleural effusion or pneumothorax. BONE:Within normal limits for the patient's age. OTHER FINDINGS:Normal. IMPRESSION: Cardiomegaly and pulmonary venous congestion with prominent interstitial lung markings. The findings are suspicious for fluid overload/congestive heart failure. DATA REPOSITORY: RADIATION DOSE DELIVERED:
[2025-06-05 12:17] LABS: BE (Venous) 9 mmol/L (-2-3); HCO3 (Venous) 33 mmol/L (23-28); O2 Sat (Venous) 71 %; TCO2 (Venous) 30 mmol/L (24-29); pCO2 (Venous) 45 mmHg (41-51); pO2 (Venous) 37 mmHg
[2025-06-05 12:18] LABS: Abs Immature Grans 0.03 10^3/uL (0.0-0.06); HCT 34.0 % (36.0-46.0); HGB 10.9 g/dL (11.2-15.7); Immature Grans % 0.3 %; MCH 24.1 pg (27.0-33.0); MCHC 32.1 % (32.0-36.0); MCV 75 fL (80-95); MPV 9.5 fL (8.0-11.0); Platelet Count 383 10^3/uL (130-400); RBC 4.53 10^6/uL (3.93-5.22); RDW 20.4 % (11.7-14.6); RDW-SD 55.1 fL; WBC 9.92 10^3/uL (4.4-10.8)
[2025-06-05 12:34] LABS: COVID-19 PCR Negative (Negative); RSV PCR Negative (Negative)
[2025-06-05 12:37] LABS: Anisocytosis 2+
[2025-06-05 12:46] LABS: ALT 130 U/L (14-59); AST 78 U/L (15-37); Albumin 2.6 g/dL (3.4-5.0); Alkaline Phosphatase 68 U/L (46-116); Anion Gap 9.8 mmol/L (3-11); BUN 9 mg/dL (7-18); Bilirubin, Total 0.8 mg/dL (0.2-1.0); CO2 32.2 mmol/L (21.0-32.0); Calcium 7.5 mg/dL (8.5-10.1); Chloride 98 mmol/L (98-107); Estimated GFR 79.71 (mL/min/1.73m2); Glucose 86 mg/dL (74-106); Magnesium 2.0 mg/dL (1.8-2.4); NT-proBNP 85 pg/mL (<300); Potassium 3.0 mmol/L (3.5-5.1); Sodium 140 mmol/L (136-145); TSH (W/Ref FT4) 4.09 uIU/mL (0.36-3.74); Total Protein 7.6 g/dL (6.4-8.2); Troponin I 8 ng/L (<or=51)
[2025-06-05 13:59] LABS: Troponin I 9 ng/L (<or=51)
[2025-06-05 15:01] VITALS: BP 116/69; PULSE 83; RESP 20; TEMP 36.8; O2SAT 93
[2025-06-05] MEDS: Furosemide 100 MG/10 ML VIAL 80 MG IVP (15:02)
[2025-06-05] MEDS: Potassium Chloride 10 MEQ CAPCR 40 MEQ PO (15:02)
[2025-06-05] MEDS: Albuterol/Ipratropium 3 ML UPD VIAL UPD (15:02)
--- NOTE | 2025-06-05 15:30 | W.ED.GENAD ---
Discharge Plan Disposition Patient Disposition: Home Discharge Details Clinical Impression: CHF (congestive heart failure), Hypokalemia Primary Care Provider: Alphonso Murphy ED Provider: Jackie Scott Home Meds and New Rx's Prescriptions: New spironolactone 50 mg tablet 50 mg PO DAILY Qty: 20 0RF potassium chloride [K-Tab] 20 mEq tablet extended release 20 meq PO DAILY Qty: 90 0RF Rx Instructions: take 40 mg twice daily 20 mg and an additional 20 mg at night torsemide 20 mg tablet 40 mg PO DAILY Qty: 30 0RF Rx Instructions: 40 mg in AM and 20 mg pm Continued albuterol sulfate 90 mcg/actuation HFA aerosol inhaler 1 - 2 puff Inhalation Q6H PRN Qty: 1 11RF fluticasone propionate [Flonase Allergy Relief] 50 mcg/actuation spray,suspension 1 spray NS DAILY Qty: 1 8RF alclometasone 0.05 % cream 1 applic topical BID PRN (Reason: itching) Qty: 45 1RF nystatin 100,000 unit/gram powder 1 applic TP BID Qty: 60 5RF gabapentin 300 mg capsule 600 mg PO TID PRN levothyroxine 200 mcg tablet 200 mcg PO DAILY Qty: 90 3RF semaglutide 3 mg tablet 3 mg PO DAILY 30 Days Qty: 30 1RF Rx Instructions: Start on Sat 20th. Stop Jardiance now. diclofenac sodium [Voltaren Arthritis Pain] 1 % gel 4 g topical QID Qty: 100 2RF Rx Instructions: apply to both wrists and thumbs up to 4 times a day potassium chloride [Klor-Con M20] 20 mEq tablet,ER particles/crystals 20 meq PO BID Qty: 120 1RF Rx Instructions: Start Sept 18nto take 4 doses a day until you are seen again ascorbic acid (vitamin C) 1,000 MG tablet 1,000 mg PO DAILY BiPAP Inhalation Gas 5 l IN DIRECTED Rx Instructions: sleep apnea ([facility] sleep lab 2012) uses with oxygen betamethasone, augmented 0.05 % lotion 1 applic topical BID PRN (Reason: allergic reaction) Qty: 60 2RF oxygen Inhalation 3 l Intranasal DIRECTED Patient Comments: Continuous and uses with bipap Rx Instructions: 3L/NC continuous sertraline 50 mg tablet 50 mg PO DAILY Qty: 90 3RF ketoconazole 2 % cream 1 applic topical BID PRN (Reason: facial rash) Qty: 60 1RF Jardiance 10 mg tablet 10 mg PO QAM Qty: 90 3RF torsemide 20 mg tablet 40 mg PO BID Qty: 360 3RF norethindrone acetate [Gallifrey] 5 mg tablet See Rx Instructions .ROUTE .COMPLEX Qty: 180 0RF Dose Instruction: TAKE TWO TABLETS BY MOUTH TWICE A DAY Rx Instructions: TAKE TWO TABLETS BY MOUTH TWICE A DAY lidocaine 5 % gel 1 applic topical DAILY PRN (Reason: dressing changes) Qty: 30 2RF prochlorperazine maleate [Compazine] 5 mg tablet 5 mg PO QID PRNQty: 10 0RF BiomePRO 50 billion cell capsule,delayed release(DR/EC) 1 cap PO DAILY Qty: 4 0RF Rx Instructions: Take 3 hours apart form any antibiotics ipratropium-albuterol 0.5 mg-3 mg(2.5 mg base)/3 mL solution for nebulization 3 ml inhalation Q6H PRN (Reason: shortness of breath or wheezing) Qty: 90 0RF spironolactone 25 mg Tablet 25 mg PO DAILY Qty: 30 0RF guaifenesin [Mucus Relief ER] 600 mg Tablet Extended Release 12hr 600 mg PO BID Qty: 6 0RF Discontinued metolazone 2.5 mg tablet See Rx Instructions PO .q tues/frid Qty: 20 2RF Rx Instructions: Take if provider tells you to orally Q TUES/FRID; Discharge Instructions Instructions: Heart Failure, Adult (DC), High Potassium Diet Additional Instructions: Stop taking the metolazone Take potassium 20 mg in the morning and in the afternoon and then take an additional 20 mg at night Increase your spironolactone to 50 mg Increase your torsemide to 40 mg in the morning and 20 mg at night Please be reevaluated in 48 hours with your doctor, you will need repeat blood work this week to be sure that your potassium is stable Please return with worsening shortness of breath, or should any new concerns arise Referrals: Alphonso Murphy MD [Primary Care Provider, Medicine] Discharge Data Discharge Date/Time-TO BE ENTERED AT DEPARTURE: 06/05/25 15:02 HPI General Date/Time Provider Initiated Documentation: 06/05/25 11:12. HPI Narrative: This 70-year-old female with history of CHF, COPD, wheelchair dependency, lymphedema chronically ill presents with worsening shortness of breath and decreased urination concerning for CHF. She states that she is concerned she is in CHF per her home health provider. They called her PCP but unfortunately Dr. Murphy was unavailable. She presents secondary says some mildly increased dyspnea from her baseline. She urinated yet 3 times yesterday which is reduced from her typical volume. She is otherwise able to transfer from her wheelchair at home and doing okay. She denies any chest discomfort. She has any fever or chills. Related Data Home Medications ?Medication ?Instructions ?Recorded ?Confirmed ascorbic acid (vitamin C) 1,000 mg 1,000 mg PO DAILY 11/25/12 06/05/25 tablet Bipap 5 l IN DIRECTED 07/23/14 06/05/25 betamethasone, augmented 0.05 % 1 applic topical BID PRN allergic 06/20/21 06/05/25 lotion reaction #60 mL oxygen 3 l intranasal DIRECTED 04/02/24 06/05/25 L. acidophilus,casei,rhamnosus 50 1 cap PO DAILY #4 caps 06/04/24 06/05/25 billion cell capsule,delayed release (BiomePRO) albuterol sulfate 90 mcg/actuation 1 - 2 puff inhalation Q6H PRN ##1 07/17/24 06/05/25 aerosol inhaler fluticasone propionate 50 1 spray NS DAILY ##1 07/17/24 06/05/25 mcg/actuation nasal spray,suspension (Flonase Allergy Relief) sertraline 50 mg tablet 50 mg PO DAILY #90 tabs 07/26/24 06/05/25 gabapentin 300 mg capsule 600 mg PO TID PRN 10/11/24 06/05/25 ipratropium 0.5 mg-albuterol 3 mg 3 ml inhalation Q6H PRN shortness 11/19/24 06/05/25 (2.5 mg base)/3 mL nebulization of breath or wheezing #90 mL soln alclometasone 0.05 % topical cream 1 applic topical BID PRN itching 11/20/24 06/05/25 #45 grams spironolactone 25 mg tablet 25 mg PO DAILY #30 tabs 12/02/24 06/05/25 ketoconazole 2 % topical cream 1 applic topical BID PRN facial 12/19/24 06/05/25 rash #60 grams levothyroxine 200 mcg tablet 200 mcg PO DAILY #90 tabs 01/10/25 06/05/25 empagliflozin 10 mg tablet 10 mg PO QAM #90 tabs 02/02/25 06/05/25 (Jardiance) prochlorperazine maleate 5 mg 5 mg PO QID PRN #10 tabs 02/07/25 06/05/25 tablet (Compazine) torsemide 20 mg tablet 40 mg (2 x 20 mg) PO BID #360 tabs 04/08/25 06/05/25 lidocaine 5 % topical gel 1 applic topical DAILY PRN 04/11/25 06/05/25 dressing changes #30 grams norethindrone acetate 5 mg tablet See Rx Instructions .Route 04/11/25 06/05/25 (Gallifrey) .COMPLEX #180 tabs guaifenesin 600 mg tablet, 600 mg PO BID #6 tabs 04/22/25 06/05/25 extended release 12 hr (Mucus Relief ER) diclofenac sodium 1 % topical gel 4 g topical QID #100 grams 04/30/25 06/05/25 (Voltaren Arthritis Pain) semaglutide 3 mg tablet 3 mg PO DAILY 30 days #30 tabs 04/30/25 06/05/25 potassium chloride 20 mEq 20 meq PO BID #120 tabs 05/01/25 06/05/25 tablet,extended release(part/cryst) (Klor-Con M) nystatin 100,000 unit/gram topical 1 applic topical BID intertrigo 05/28/25 06/05/25 powder #60 grams potassium chloride 20 mEq 20 meq PO DAILY #90 tabs 06/05/25 tablet,extended release (K-Tab) spironolactone 50 mg tablet 50 mg PO DAILY #20 tabs 06/05/25 torsemide 20 mg tablet 40 mg (2 x 20 mg) PO DAILY #30 tabs 06/05/25 Previous Rx's ?Medication ?Instructions ?Recorded betamethasone, augmented 0.05 % 1 applic topical BID PRN allergic 06/20/21 lotion reaction #60 mL L. acidophilus,casei,rhamnosus 50 1 cap PO DAILY #4 caps 06/04/24 billion cell capsule,delayed release (BiomePRO) albuterol sulfate 90 mcg/actuation 1 - 2 puff inhalation Q6H PRN ##1 07/17/24 aerosol inhaler fluticasone propionate 50 1 spray NS DAILY ##1 07/17/24 mcg/actuation nasal spray,suspension (Flonase Allergy Relief) sertraline 50 mg tablet 50 mg PO DAILY #90 tabs 07/26/24 ipratropium 0.5 mg-albuterol 3 mg 3 ml inhalation Q6H PRN shortness 11/19/24 (2.5 mg base)/3 mL nebulization of breath or wheezing #90 mL soln alclometasone 0.05 % topical cream 1 applic topical BID PRN itching 11/20/24 #45 grams spironolactone 25 mg tablet 25 mg PO DAILY #30 tabs 12/02/24 ketoconazole 2 % topical cream 1 applic topical BID PRN facial 12/19/24 rash #60 grams levothyroxine 200 mcg tablet 200 mcg PO DAILY #90 tabs 01/10/25 empagliflozin 10 mg tablet 10 mg PO QAM #90 tabs 02/02/25 (Jardiance) prochlorperazine maleate 5 mg 5 mg PO QID PRN #10 tabs 02/07/25 tablet (Compazine) torsemide 20 mg tablet 40 mg (2 x 20 mg) PO BID #360 tabs 04/08/25 lidocaine 5 % topical gel 1 applic topical DAILY PRN 04/11/25 dressing changes #30 grams norethindrone acetate 5 mg tablet See Rx Instructions .Route 04/11/25 (Gallifrey) .COMPLEX #180 tabs guaifenesin 600 mg tablet, 600 mg PO BID #6 tabs 04/22/25 extended release 12 hr (Mucus Relief ER) diclofenac sodium 1 % topical gel 4 g topical QID #100 grams 04/30/25 (Voltaren Arthritis Pain) semaglutide 3 mg tablet 3 mg PO DAILY 30 days #30 tabs 04/30/25 potassium chloride 20 mEq 20 meq PO BID #120 tabs 05/01/25 tablet,extended release(part/cryst) (Klor-Con M) nystatin 100,000 unit/gram topical 1 applic topical BID intertrigo 05/28/25 powder #60 grams potassium chloride 20 mEq 20 meq PO DAILY #90 tabs 06/05/25 tablet,extended release (K-Tab) spironolactone 50 mg tablet 50 mg PO DAILY #20 tabs 06/05/25 torsemide 20 mg tablet 40 mg (2 x 20 mg) PO DAILY #30 tabs 06/05/25 Allergies Allergy/AdvReac Type Severity Reaction Status Date / Time hydrocodone Allergy Severe ITCHING Verified 06/05/25 10:58 morphine Allergy Mild PRURITIS Verified 06/05/25 10:58 oxycodone Allergy Mild ITCHING Verified 06/05/25 10:58 General Stated Complaint: SOB REUBEN: 3 Exam Narrative Exam Narrative: Alert and oriented 70-year-old female female apparently at her baseline respiratory status. Patient is afebrile and nontoxic in appearance her oxygen is 95% on the monitor. She is speaking in complete sentences, she has crackles at the bases of her lungs, she is in no significant respiratory distress she has lymphedema so it is hard to tell if she has some increased fluid retention in her right lower extremity she has no obvious rashes or lesions. Her cardiac rate rhythm is regular she appears to be at her baseline status she has no tenderness to her calf. Course Vital Signs Vital signs: Vital Signs Temperature 36.8 C 06/05/25 10:56 Pulse 83 06/05/25 10:56 Respiratory Rate 20 06/05/25 10:56 Blood Pressure 116/69 06/05/25 10:56 Pulse Oximetry 93 06/05/25 10:56 Temperature 36.8 C 06/05/25 15:01 Pulse 83 06/05/25 15:01 Respiratory Rate 20 06/05/25 15:01 Blood Pressure 116/69 06/05/25 15:01 Blood Pressure Position Sitting 06/05/25 15:01 Pulse Oximetry 93 06/05/25 15:01 Oxygen Delivery Method Room Air 06/05/25 15:01 Oxygen Flow Rate 0 06/05/25 15:01 Lab/Test Results Lab/Test Results: Laboratory Tests Range/Units 06/05/25 06/05/25 06/05/25 11:50 12:10 13:35 WBC (4.4-10.8) 10^3/uL 9.92 RBC (3.93-5.22) 10^6/uL 4.53 Hgb (11.2-15.7) g/dL 10.9 L Hct (36.0-46.0) % 34.0 L MCV (80-95) fL 75 L MCH (27.0-33.0) pg 24.1 L MCHC (32.0-36.0) % 32.1 RDW (11.7-14.6) % 20.4 H Plt Count (130-400) 10^3/uL 383 MPV (8.0-11.0) fL 9.5 Immature Gran % % 0.3 Neutrophils % % 71.0 Lymphocytes % % 16.5 Monocytes % % 9.1 Eosinophils % % 2.5 Basophils % % 0.6 Nucleated RBC % (0.0-0.3) % 0.0 Absolute Neutrophils (1.2-6.7) 10^3/uL 7.04 H Absolute Lymphocytes (1.2-3.4) 10^3/uL 1.64 Absolute Monocytes (0.1-0.8) 10^3/uL 0.90 H Absolute Eosinophils (0.0-0.7) 10^3/uL 0.25 Absolute Basophils (0.0-0.2) 10^3/uL 0.06 RBC Morphology See Below Anisocytosis 2+ VBG pH (7.31-7.41) 7.47 H VBG pCO2 (41-51) mmHg 45 VBG pO2 mmHg 37 VBG HCO3 (23-28) mmol/L 33 H VBG Total CO2 (24-29) mmol/L 30 H VBG O2 Saturation % 71 VBG Base Excess (-2-3) mmol/L 9 H Sodium (136-145) mmol/L 140 Potassium (3.5-5.1) mmol/L 3.0 L Chloride (98-107) mmol/L 98 Carbon Dioxide (21.0-32.0) mmol/L 32.2 H Anion Gap (3-11) mmol/L 9.8 BUN (7-18) mg/dL 9 Creatinine (0.55-1.02) mg/dL 0.8 Est GFR (CKD-EPI 2020) (mL/min/1.73m2) 79.71 Glucose (74-106) mg/dL 86 Calcium (8.5-10.1) mg/dL 7.5 L Magnesium (1.8-2.4) mg/dL 2.0 Total Bilirubin (0.2-1.0) mg/dL 0.8 AST (15-37) U/L 78 H ALT (14-59) U/L 130 H Alkaline Phosphatase (46-116) U/L 68 Troponin I (<or=51) ng/L 8 9 NT-Pro-B Natriuret Pep (<300) pg/mL 85 Total Protein (6.4-8.2) g/dL 7.6 Albumin (3.4-5.0) g/dL 2.6 L TSH (0.36-3.74) uIU/mL 4.09 H Free T4 (0.76-1.46) ng/dL 1.62 H COVID-19 Source Nasopharynx SARS-CoV-2 (PCR) (Negative) Negative Influenza Type A (PCR) (Negative) Negative Influenza Type B (PCR) (Negative) Negative RSV (PCR) (Negative) Negative Medical Decision Making Results: Calcium was 7 7.5, albumin adjusted calcium of 8.5, creatinine of 0.8 potassium of 3, supplemented with 40 mEq of potassium BMP stable although baseline for patient, preserved ejection fraction echocardiogram Assessment and plan: Low suspicion clinically for COPD exacerbation, suspect CHF given 80 mg of IV Lasix, likely CHF or volume overload component but do not feel patient requires urgent admission to the hospital. patient then had her metolazone discontinued and will increase spironolactone to 50 mg a day, will increase her potassium to 100 mg a day. Patient was given 80 mg of Lasix in the emergency department and has urinated 3 times during her stay here. I will also increase her torsemide to 40 mg in the morning and 20 mg at night. She will need recheck of her labs this week. We made joint decision making as patient has been vitally stable throughout this encounter and in no significant respiratory distress and she feels comfortable discharge home at this time. She will return should she have new or worsening complaints and follow-up with her doctor this. Given the threshold to return with new or worsening complaints Quality:SDOH Health Related Social Needs: Health related social needs material hardship Health related social needs details Pt refuses to answer questions PFSH All Active Problems (Updated 06/05/25 @ 14:44 by INESSA Galicia) Hypokalemia (Acute) CHF (congestive heart failure) (Chronic) Dependent edema (Acute) Edema (Acute) Edema leg (Acute) Pain, foot, right, chronic (Acute) S/P AKA (above knee amputation) unilateral (Acute) Abnormal liver enzymes (Acute) Hypokalemia with shifts of fluid from extracellular to intracellular space (Acute) Acute interstitial pneumonia (Acute) Hypercalcemia (Acute) COPD (chronic obstructive pulmonary disease) (Chronic) CHF (congestive heart failure) (Chronic) Laceration of left upper extremity (Acute) Abnormal transaminases (Acute) Pancreatitis (Chronic) Acute biliary pancreatitis (Acute) Laceration of left forearm (Acute) Anemia (Chronic) COPD exacerbation (Acute) Electrolyte disturbance (Acute) Acute on chronic hypoxic respiratory failure (Acute) Left above-knee amputee (Acute) Advanced care planning/counseling discussion (Acute) Elevated liver enzymes (Acute Unknown) Exertional shortness of breath (Acute) Heart failure with preserved ejection fraction (Acute) Wound dehiscence (Acute) Thickened endometrium (Acute) Postmenopausal bleeding (Acute) Venous stasis dermatitis (Acute) Chronic headaches (Chronic) Recent Neurology consult for possible papilledema. Urinary incontinence (Chronic) On Detrol Recurrent UTI (Chronic) Right ventricular dysfunction (Chronic) Knee pain, bilateral (Chronic 07/23/14) s/p bilat TKR (left infected with mult surg and decreased mobility) Morbid obesity (Acute 04/05/13) Sensorineural hearing loss, bilateral (Chronic 08/29/13) Advance directive on file (Acute) Low back pain with sciatica (Chronic 05/03/14) CT at [facility] L34 spinal stenosis Varicose veins of lower extremity (Chronic) Depression (Chronic) Grief at loss of child (Acute) Mixed conductive and sensorineural hearing loss of both ears (Acute) Right carpal tunnel syndrome (Acute) Arthritis of right hand (Acute) Impingement of right ulnar nerve (Acute) Dermoid cyst of neck (Acute) Microcalcifications of the breast (Acute) Neuropathy of left hand (Acute) Neuropathy of right hand (Acute) Bilateral carpal tunnel syndrome (Acute) Medical History Palliative care patient CHF (congestive heart failure) Atrial fibrillation COPD (chronic obstructive pulmonary disease) Hx pulmonary embolism (~2015) treated with lovenox x 3 months GERD (gastroesophageal reflux disease) had negative barium esophagram in 11/2022. Anxiety Lymphedema Hypothyroidism DAVID (obstructive sleep apnea) on BiPap Chronic respiratory failure with hypoxia and hypercapnia home BiPap Surgical History S/P AKA (above knee amputation) (~09/2024) Status post thyroidectomy History of fasciotomy Replacement of total knee joint Bilateral; left-became metqhyzb-qwgfith-zwglxjiu surgeries Fasciotomy, Foot (~1996) LEFT History of Surgical Procedure a. Right and left toal knee replacements. b. Left knee has been repeatedly operated on with slava surgies, three replacements. Family History Mother Diabetes Personal history of malignant neoplasm LUNG Father Personal history of malignant neoplasm BRAIN Grandfather No problems noted. Grandfather No problems noted. Grandmother No problems noted. Grandmother No problems noted. Social History (Updated 11/28/24 @ 21:52 by Brandan Hicks) Smoking/Tobacco Use Status: Former Tobacco Use tobacco type: cigarettes Quit Date: 01/21/21 Second Hand Exposure: Yes Smoking risk assessment performed?: Yes Alcohol Intake: never Drug use: Never Substance use type: does not use Counseling given: No Housing: house Communication Needs: Hard of Hearing and Corrective Lenses Pets and animals: Yes Pets and animals: cat(s) Sexually active: Yes Current gender identity: female What is your relationship status?: never How often do you talk on the phone with friends or family?: decline to answer How often do you get together with friends or relatives?: decline to answer How often do you attend confucianist or hindu services?: decline to answer Do you belong to any clubs or organized social groups?: no Panel score (0-1 are the most socially isolated patients): 0 Seatbelt use: never Do you feel safe at home: Yes Do you feel safe in your relationship?: Yes Additional Social history: Lives in her own apartment in [facility], uses electric scooter
== END 2025-06-05 15:02 | disposition home or self-care (01) ==
PROVIDERS: Emergency Provider Physician Assistant; PCP Family Medicine
DX: I50.32 Chronic diastolic (congestive) heart failure (principal); E87.6 Hypokalemia; R94.31 Abnormal electrocardiogram [ECG] [EKG]; J44.9 Chronic obstructive pulmonary disease, unspecified; I48.91 Unspecified atrial fibrillation; Z89.612 Acquired absence of left leg above knee; Z99.3 Dependence on wheelchair; Z86.711 Personal history of pulmonary embolism; Z87.891 Personal history of nicotine dependence; Z79.899 Other long term (current) drug therapy
CPT/HCPCS: 80053; 82805; 87637; 93005; 94640; 96374; 99284; 71046; 83735; 83880; 84439; 84443; 84484; 85025; 93010; J1938; J7620

== ENCOUNTER 2025-06-12 09:22 | Outpatient (CLI) | payer MEDICARE, MEDICAID, SELFPAY ==
[2025-06-12 11:09] LABS: Potassium 3.4 mmol/L (3.5-5.1)
== END 2025-06-12 09:23 | disposition home or self-care (01) ==
LOC: LBO 09:25
PROVIDERS: PCP Family Medicine; Visit Provider Family Medicine
DX: I10 Essential (primary) hypertension (principal)
CPT/HCPCS: 36415; 84132